=== PATIENT | male | born 1950 | race Caucasian/White ===

== ENCOUNTER 2018-10-15 00:50 | Emergency (ER) | payer MEDICARE ==
[~2018-10-15] VITALS: Ht 180.3 cm; Wt 84.8 kg
[~2018-10-15 00:50] MED LIST: ACID1TAB PO; ALPR1T PO; ALPR1TAB; ALPR2TAB6 PO; AMLO10TA7 PO; AMLO5TAB2 PO; AMLODIPINE; ASCO500T6 PO; ASPI-983 PO; BETA10003 PO; CARI250T; CARI350T27 PO; CEFD300C3 PO; CRS350T PO; DCS100C PO; ENAL20TA PO; ENALAPRIL; EZET10TA5 PO; FENO145T2 PO; FENO54TA PO; FERR-84 PO; FLUT16SP22 NS; HYDR-2890 PO; HYDR-3820 PO; HYDR1TAB PO; METR500T PO; MULT-351 PO; NYST1000 PO; PANT40TA3 PO; PERP1TAB PO; PERP1TAB5 PO; POLY17PO23 GT; POLY17PO6 PO; TAMS0.4C98 PO; TEST200V21 IM; THIO100T PO; THIO50TA PO; THR25T; TIZA4TAB3 PO; TRIAVIL; TRICOR; UBID1CAP53 PO; VITA400C60 PO; WHEA730P PO
--- OUTSIDE RECORDS SUMMARY | 2018-10-15 00:58 | XMS REPORT ---
Author Author Migration, Doctor Organization [facility] Address Unknown Phone Unavailable Care Team Providers Care Dross Puller Name Role Phone Migration, Doctor Unavailable Unavailable PROBLEMS Type Condition ICD9-CM Code XCV81-YD Code Onset Dates Condition Status SNOMED Code Problem HTN (hypertension) I10 Active 11357390 Problem Insomnia G47.00 Active 310103841 Problem Chronic pain G89.29 Active 78235561 Problem Hyperlipidemia E78.5 Active 43363310 Problem Thoracic back pain, unspecified back pain laterality, unspecified chronicity M54.6 Active 136322384 Problem Vision loss H54.7 Active 509428163 Problem Constipation K59.00 Active 26789482 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 18568655 Problem Anxiety F41.9 Active 47066965 Problem Vitamin D deficiency E55.9 Active 67901745 Problem Environmental allergies Z91.09 Active 898840666 Problem Primary insomnia F51.01 Active 0392859 Problem Chronic kidney disease, stage III (moderate) N18.3 Active 695627979 ALLERGIES No Information ENCOUNTERS Encounter Location Date Diagnosis [place] [id number] [place] [address] Sep, [facility] [address] [place] [address] August, 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 [facility] [address] [place] [address] August, 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 [facility] [address] [place] [address] August, [facility] [address] [place] [address] August, [facility] [address] [place] [address] August, Thoracic back pain, unspecified back pain laterality, unspecified chronicity M54.6 [facility] [address] [place] [address] August, [facility] [address] [place] [address] August, Anxiety F41.9 and Thoracic back pain, unspecified back pain laterality, unspecified chronicity M54.6 [facility] [address] [place] [address] Jul, [facility] [address] [place] [address] Jul, Thoracic back pain, unspecified back pain laterality, unspecified chronicity M54.6 [place] [address] [place] [address] Jun, Anxiety F41.9 and Thoracic back pain, unspecified back pain laterality, unspecified chronicity M54.6 [facility] [address] [place] [address] Jun, Anxiety F41.9 and Thoracic back pain, unspecified back pain laterality, unspecified chronicity M54.6 [facility] [address] [place] [address] Jun, Thoracic back pain, unspecified back pain laterality, unspecified chronicity M54.6 [facility] [address] [place] [address] Jun, Anxiety F41.9 and Thoracic back pain, unspecified back pain laterality, unspecified chronicity M54.6 [facility] [address] [place] [address] May, [facility] [address] [place] [address] May, [facility] [address] [place] [address] May, [place] [address] [place] [address] 06 May, 2018 Anxiety F41.9 and Encounter for medication monitoring Z51.81 [place] [address] [place] [address] 05 May, 2018 Anxiety F41.9 and Thoracic back pain, unspecified back pain laterality, unspecified chronicity M54.6 [place] [address] [address] Apr, Hyperlipidemia 272.4 [place] [address] [address] Apr, Chronic pain G89.29 ; Anxiety F41.9 ; Cervical radiculopathy M54.12 and Vision loss H54.7 [place] [address] [place] [address] Apr, [place] [address] [address] Apr, Anxiety F41.9 and Thoracic back pain, unspecified back pain laterality, unspecified chronicity M54.6 [place] [address] [place] [id number] 17 Mar, 2018 [place] [address] [place] [address] Mar, Anxiety F41.9 and Thoracic back pain, unspecified back pain laterality, unspecified chronicity M54.6 [place] [address] [place] [address] 14 Feb, 2018 Anxiety F41.9 and Thoracic back pain, unspecified back pain laterality, unspecified chronicity M54.6 [place] [address] [place] [address] 07 Feb, 2018 Thoracic back pain, unspecified back pain laterality, unspecified chronicity M54.6 [place] [address] [address] Jan, [place] [address] [place] [address] Jan, Anxiety F41.9 and Thoracic back pain, unspecified back pain laterality, unspecified chronicity M54.6 [place] [address] [place] [address] 19 Dec, 2017 Diarrhea of presumed infectious origin R19.7 [place] [address] [place] [phone] 19 Dec, 2017 Diarrhea of presumed infectious origin R19.7 [place] [address] [place] [address] 18 Dec, 2017 Thoracic back pain, unspecified back pain laterality, unspecified chronicity M54.6 [place] [address] [place] [address] 17 Dec, 2017 [place] [address] [place] [address] 17 Dec, 2017 Anxiety F41.9 and Thoracic back pain, unspecified back pain laterality, unspecified chronicity M54.6 [place] [address] [place] [phone] Dec, Diarrhea of presumed infectious origin R19.7 [place] [address] [place] [id number] Dec, [place] [address] [place] [address] Dec, Anxiety F41.9 and Thoracic back pain, unspecified back pain laterality, unspecified chronicity M54.6 [place] [address] [place] [address] Dec, Anxiety F41.9 and Thoracic back pain, unspecified back pain laterality, unspecified chronicity M54.6 [facility] [address] [place] [id number] Dec, Diarrhea of presumed infectious origin R19.7 ; Anxiety F41.9 ; Thoracic back pain, unspecified back pain laterality, unspecified chronicity M54.6 and HTN (hypertension) I10 [place] [address] [place] [address] Dec, Anxiety F41.9 [facility] [address] [place] [id number] Dec, Anxiety F41.9 ; Diarrhea of presumed infectious origin R19.7 ; Generalized abdominal pain R10.84 and Localized edema R60.0 [place] [address] [place] [address] Nov, [facility] [address] [place] [id number] Nov, Anxiety F41.9 ; Urinary retention R33.9 ; Diarrhea of presumed infectious origin R19.7 ; Weakness R53.1 ; Acute kidney failure, unspecified N17.9 ; Chronic kidney disease, stage III (moderate) N18.3 and Thoracic back pain, unspecified back pain laterality, unspecified chronicity M54.6 [place] [address] [place] [address] Oct, Thoracic back pain, unspecified back pain laterality, unspecified chronicity M54.6 and Anxiety F41.9 [place] [address] [place] [address] Sep, Thoracic back pain, unspecified back pain laterality, unspecified chronicity M54.6 and Anxiety F41.9 [place] [address] [place] [address] Sep, Thoracic back pain, unspecified back pain laterality, unspecified chronicity M54.6 ; Anxiety F41.9 and Encounter for medication monitoring Z51.81 [place] [address] [place] [address] August, [place] [address] [address] August, Thoracic back pain, unspecified back pain laterality, unspecified chronicity M54.6 and Anxiety F41.9 [place] [address] [place] [address] August, Hyperlipidemia E78.5 and HTN (hypertension) I10 [place] [address] [place] [address] August, [place] [address] [address] August, Medicare welcome exam Z00.00 ; Chronic kidney failure N18.9 ; Anxiety F41.9 ; Chronic pain G89.29 ; Insomnia G47.00 ; Hyperlipidemia E78.5 ; HTN (hypertension) I10 and Thoracic back pain, unspecified back pain laterality, unspecified chronicity M54.6 [place] [address] [place] [address] Jul, [place] [address] [address] Jul, [place] [address] [place] [address] Jul, [place] [address] [place] [address] Jul, Anxiety F41.9 [place] [address] [place] [address] Jul, Thoracic back pain, unspecified back pain laterality, unspecified chronicity M54.6 and Anxiety F41.9 [place] [address] [place] [address] Jun, Thoracic back pain, unspecified back pain laterality, unspecified chronicity M54.6 and Anxiety F41.9 [place] [address] [place] [address] May, Thoracic back pain, unspecified back pain laterality, unspecified chronicity M54.6 and Anxiety F41.9 [place] [address] [place] [address] Apr, Thoracic back pain, unspecified back pain laterality, unspecified chronicity M54.6 and Anxiety F41.9 [place] [address] [place] [address] Mar, [place] [address] [address] Mar, Thoracic back pain, unspecified back pain laterality, unspecified chronicity M54.6 and Anxiety F41.9 [place] [address] [place] [address] Mar, Thoracic back pain, unspecified back pain laterality, unspecified chronicity M54.6 ; HTN (hypertension) I10 ; Hyperlipidemia E78.5 and Anxiety F41.9 [place] [address] [place] [address] Feb, Thoracic back pain, unspecified back pain laterality, unspecified chronicity M54.6 and Anxiety F41.9 [place] [address] [place] [address] Nov, [place] [address] [place] [address] Oct, [place] [address] [place] [address] Oct, Thoracic back pain, unspecified back pain laterality, unspecified chronicity M54.6 [place] [address] [place] [address] Oct, HTN (hypertension) I10 ; Constipation K59.00 ; Hyperlipidemia E78.5 ; Thoracic back pain, unspecified back pain laterality, unspecified chronicity M54.6 ; Chronic pain G89.29 ; Anxiety F41.9 ; Chronic kidney failure N18.9 ; Environmental allergies Z91.09 ; Vitamin D deficiency E55.9 and Primary insomnia F51.01 [facility] [address] [facility] [id number] [place] [address] Sep, Anxiety F41.9 [facility] [address] [address] Sep, [facility] [address] [address] August, Anxiety F41.9 [facility] [place] [facility] [id number] [place] [address], [place] [address] August, [facility] [id number] [address] Jul, Anxiety F41.9 [facility] [address] [address] Jul, [facility] [id number] [place] [address], [place] [address] Jun, Anxiety F[address] [facility] [place] [facility] [id number] [address] Jun, [facility] [address] [address] May, [facility] [address] [address] May, [facility] [place] [facility] [address] [address] May, [facility] [place] [facility] [id number] [address] Apr, [facility] [place] [facility] [address] [address] Apr, [facility] [place] [facility] [address] [address] Apr, Anxiety F41.[address] [facility] [place] [facility] [address] [address] Apr, Anxiety F41.9 [facility] [address] [place] [address] Apr, [facility] [address] [place] [address] Mar, HTN (hypertension) I10 ; Tremor R25.1 ; Hypercholesterolemia E78.0 ; Constipation K59.00 ; Chronic pain G89.29 ; Hyperlipidemia E78.5 ; Insomnia G47.00 ; Anxiety F41.9 and Thoracic back pain, unspecified back pain laterality, unspecified chronicity M54.6 [facility] [address] [place] [address] Mar, Tremor R25.1 ; HTN (hypertension) I10 ; Hypercholesterolemia E78.0 ; Constipation K59.00 ; Chronic pain G89.29 ; Hyperlipidemia E78.5 ; Insomnia G47.00 ; Anxiety F41.9 and Thoracic back pain, unspecified back pain laterality, unspecified chronicity M54.6 [facility] [address] [place] [address] Mar, [facility] [address] [place] [address] Mar, [facility] [address] [place] [address] Feb, [facility] [address] [place] [address] Jan, [facility] [address] [place] [address] Jan, [facility] [address] [place] [address] Dec, [facility] [address] [place] [address] Nov, [facility] [address] [place] [address] Nov, [facility] [address] [address] Oct, Anxiety F41.9 [facility] [address] [place] [address] Oct, Chronic pain G89.29 [facility] [address] [place] [address] Sep, [facility] [address] [place] [address] Sep, [facility] [address] [place] [address] Sep, [facility] [address] [place] [address] Sep, [facility] [address] [place] [address] Sep, Chronic pain syndrome G89.4 [facility] [address] [place] [address] Sep, HTN (hypertension) I10 ; Chronic pain G89.29 ; Hypercholesterolemia E78.0 ; Chronic kidney failure N18.9 ; Constipation, unspecified constipation type K59.00 ; Anxiety F41.9 and Thoracic back pain, unspecified back pain laterality, unspecified chronicity M54.6 [place] [id number] [place] [address] August, Chronic pain syndrome G89.4 [facility] [address] [place] [address] August, Chronic pain syndrome G89.4 [facility] [address] [place] [address] Jul, Anxiety disorder, unspecified F41.9 and Chronic pain syndrome G89.4 [facility] [address] [place] [address] Jul, Insomnia, unspecified G47.00 and Chronic pain syndrome G89.4 [facility] [address] [address] Jul, Allergic rhinitis J30.9 [facility] [address] [address] Jul, Constipation, unspecified K59.00 [facility] [address] [place] [address] Jul, [facility] [address] [place] [address] Jun, [facility] [address] [place] [address] Jun, [facility] [address] [place] [address] Jun, [facility] [address] [place] [address] Jun, [facility] [address] [place] [address] Jun, [facility] [address] [place] [address] Jun, [facility] [address] [place] [address] May, [facility] [address] [place] [address] May, [facility] [address] [place] [address] May, Anxiety F41.9 ; Insomnia G47.00 ; Hyperlipidemia E78.5 ; Chronic pain G89.29 ; HTN (hypertension) I10 ; Environmental allergies V15.09 and Constipation 564.00 [facility] [address] [address] Apr, [facility] [address] [address] Apr, [facility] [address] [place] [address] Apr, [facility] [address] [place] [address] Mar, [facility] [address] [place] [address] Mar, [facility] [address] [place] [address] Mar, [facility] [address] [place] [address] Feb, [facility] [address] [place] [address] Feb, [facility] [address] [place] [address] Feb, [facility] [id number] [place] [address] Jan, HTN (hypertension) I10 ; Constipation K59.00 ; Chronic pain G89.29 ; Hyperlipidemia E78.5 ; Hypercholesterolemia E78.0 ; Insomnia G47.00 and Anxiety F41.9 [facility] [address] [place] [address] Jan, [facility] [address] [place] [address] Dec, [facility] [address] [place] [address] Nov, [facility] [address] [place] [address] Oct, Chronic kidney disease, unspecified 585.9 ; Chronic pain syndrome 338.4 ; Hyperlipidemia 272.4 and Essential hypertension 401.9 [facility] [address] [place] [address] Oct, Chronic kidney disease 585.9 [facility] [address] [address] Oct, [facility] [address] [place] [address] Oct, Chronic kidney disease, unspecified 585.9 ; Hypercalcemia 275.42 ; Hyperlipidemia 272.4 ; Essential hypertension 401.9 ; Chronic pain syndrome 338.4 ; Insomnia 780.52 ; Constipation 564.00 ; Environmental allergies V15.09 and Anxiety 300.00 [facility] [address] [address] Oct, Chronic kidney disease 585.9 [facility] [address] [place] [address] Oct, [facility] [address] [place] [address] Oct, Chronic kidney disease 585.9 and Hyperlipidemia 272.4 [facility] [address] [address] Oct, [facility] [id number] [place] [address] Oct, [facility] [address] [address] Sep, [facility] [id number] [address] Sep, [facility] [id number] [address] Sep, Chronic kidney disease 585.9 and Hyperlipidemia 272.4 [facility] [id number] [address] Sep, [facility] [id number] [address] August, [facility] [id number] [address] 14 Aug, 2014 [facility] [place] [facility] [address] [id number] [place] [address] 14 Jul, 2014 [facility] [place] [facility] [address] [id number] [place] [address] 13 Jul, 2014 [facility] [place] [facility] [address] [id number] [place] [address] Jun, [facility] [place] [facility] [address] [id number] [place] [address] Jun, [facility] [place] [facility] [address] [id number] [place] [address] Jun, [facility] [place] [facility] [address] [id number] [place] [address] Jun, [facility] [place] [facility] [address] [id number] [place] [address] Jun, [facility] [place] [facility] [address] [id number] [place] [address] Jun, [facility] [place] [facility] [address] [id number] [place] [address] Jun, [facility] [place] [facility] [address] [facility] [id number] [place] [address] Jun, [facility] [place] [facility] [address] [id number] [place] [address] 16 May, 2014 [facility] [place] [facility] [address] [id number] [place] [address] May, [facility] [place] [facility] [address] [id number] [place] [address] May, [facility] [place] [facility] [address] [id number] [place] [address] May, [facility] [place] [facility] [address] [id number] [place] [address] Apr, [facility] [place] [facility] [address] [id number] [place] [address] Apr, [facility] [place] [facility] [address] [id number] [place] [address] Apr, [facility] [place] [facility] [address] [id number] [place] [address] Apr, [facility] [place] [facility] [address] [id number] [place] [address] Apr, [facility] [place] [facility] [address] [id number] [place] [address] Apr, [facility] [place] [facility] [address] [id number] [place] [address] Apr, [facility] [place] [facility] [address] [address] [id number] [place] [address] Apr, [facility] [place] [facility] [address] [id number] [place] [address] Apr, [facility] [place] [facility] [address] [id number] [place] [address] Apr, [facility] [place] [facility] [address] [id number] [place] [address] Apr, [facility] [place] [facility] [address] [id number] [place] [address] Mar, [facility] [place] [facility] [address] [id number], [place] [address] Mar, [facility] [place] [facility] [address] [id number] [place] [address] Feb, [facility] [place] [facility] [address] [id number] [place] [address] Feb, [facility] [place] [facility] [address] [id number] [place] [address] Feb, [facility] [place] [facility] [address] [id number], [place] [address] Feb, [facility] [place] [facility] [address] [id number] [place] [address] Feb, [facility] [place] [facility] [address] [id number] [place] [address] Feb, [facility] [place] [facility] [address] [id number] [place] [address] Feb, [facility] [place] [facility] [address] [id number] [place] [address] Feb, [facility] [place] [facility] [address] [id number] [place] [address] Feb, [facility] [place] [facility] [address] [id number] [place] [address] Feb, [facility] [place] [facility] [address] [facility] [id number] [place] [address] Jan, [facility] [place] [facility] [address] [id number] [place] [address] Jan, [facility] [place] [facility] [address] [id number] [place] [address] Jan, [facility] [place] [facility] [address] [facility] [id number] [place] [address] Jan, [facility] [place] [facility] [address] [id number], [place] [address] Jan, [facility] [place] [facility] [address] [id number][place] [address] 24 Jan, 2014 [facility] [place] [facility] [address] [id number] [place] [address] Jan, [facility] [place] [facility] [address] [id number] [place] [address] Jan, [facility] [place] [facility] [address] [facility] [id number][place] [address] 16 Jan, 2014 [facility] [place] [facility] [address] [id number] [place] [address] 06 Jan, 2014 [facility] [place] [facility] [address] [id number] [place] [address] Jan, [facility] [place] [facility] [address] [id number] [place] [address] Dec, 2013 [facility] [place] [facility] [address] [id number] [place] [address] Dec, 2013 [facility] [place] [facility] [address] [id number] [place] [address] Dec, 2013 [facility] [place] [facility] [address] [id number] [place] [address] Dec, 2013 [facility] [place] [facility] [address] [id number] [place] [address] 18 Dec, 2013 [facility] [place] [facility] [address] [id number] [place] [address] Dec, [facility] [place] [facility] [address] [id number] [place] [address] Dec, [facility] [place] [facility] [address] [id number] [place] [address] Dec, [facility] [place] [facility] [address] [id number] [place] [address] Nov, [facility] [place] [facility] [address] [id number] [place] [address] Nov, [facility] [place] [facility] [address] [id number] [place] [address] Nov, [facility] [place] [facility] [address] [id number] [place] [address] Nov, [facility] [place] [facility] [address] [id number] [place] [address] Nov, [facility] [place] [facility] [address] [id number] [place] [address] Nov, [facility] [place] [facility] [address] [id number] [place] [address] Nov, [facility] [place] [facility] [address] [id number] [place] [address] Nov, [facility] [place] [facility] [address] [id number] [place] [address] Oct, [facility] [place] [facility] [address] [id number] [place] [address] Oct, [facility] [place] [facility] [address] [id number] [place] [address] Oct, [facility] [place] [facility] [address] [id number] [place] [address] Oct, [facility] [place] [facility] [address] [id number] [place] [address] Sep, [facility] [place] [facility] [address] [id number] [place] [address] Sep, [facility] [place] [facility] [address] [id number] [place] [address] Sep, [facility] [place] [facility] [address] [id number] [place] [address] Sep, [facility] [place] [facility] [address] [id number] [place] [address] Sep, [facility] [place] [facility] [address] [id number], [place] [address] Sep, [facility] [place] [facility] [address] [id number] [place] [address] Sep, [facility] [place] [facility] [address] [id number] [place] [address] Sep, [facility] [place] [facility] [address] [id number] [place] [address] August, [facility] [place] [facility] [address] [id number] [place] [address] August, [facility] [address] [id number] [place] [address] August, [facility] [place] [facility] [address] [id number] [place] [address] August, [facility] [place] [facility] [address] [id number] [place] [address] August, [facility] [place] [facility] [address] [id number] [place] [address] August, [facility] [place] [facility] [address] [id number] [place] [address] August, [facility] [place] [facility] [address] [id number] [place] [address] August, [facility] [address] [id number] [place] [address] August, [facility] [place] [facility] [address] [id number] [place] [address] August, [facility] [place] [facility] [address] [id number] [place] [address] Jul, [facility] [place] [facility] [address] [id number] [place] [address] Jul, [facility] [place] [facility] [address] [id number] [place] [address] Jul, [facility] [place] [facility] [address] [id number] [place] [address] Jul, [facility] [place] [facility] [address] [id number] [place] [address] Jul, [facility] [place] [facility] [address] [id number] [place] [address] Jul, [facility] [place] [facility] [address] [id number] [place] [address] Jul, [facility] [place] [facility] [address] [id number] [place] [address] Jul, [facility] [place] [facility] [address] [id number] [place] [address] Jun, [facility] [place] [facility] [address] [id number] [place] [address] Jun, [facility] [place] [facility] [address] [id number] [place] [address] Jun, [facility] [place] [facility] [address] [id number] [place] [address] Jun, [facility] [place] [facility] [address] [id number] [place] [address] Jun, [facility] [place] [facility] [address] [id number] [place] [address] Jun, [facility] [place] [facility] [address] [id number] [place] [address] May, [facility] [place] [facility] [address] [id number] [place] [address] May, [facility] [place] [facility] [address] [id number] [place] [address] May, [facility] [place] [facility] [address] [id number] [place] [address] May, [facility] [place] [facility] [address] [id number] [place] [address] May, [facility] [place] [facility] [address] [id number] [place] [address] May, [facility] [place] [facility] [address] [id number] [place] [address] May, [facility] [place] [facility] [address] [id number] [place] [address] Apr, [facility] [place] [facility] [address] [id number] [place] [address] Apr, [facility] [address] [id number] [place] [address] Apr, [facility] [place] [facility] [address] [id number] [place] [address] 14 Apr, 2013 [facility] [address] [id number] [place] [address] Apr, [facility] [place] [facility] [address] [id number] [place] [address] Apr, [facility] [address] [id number] [place] [address] Mar, [facility] [place] [facility] [address] [id number] [place] [address] 31 Mar, 2013 [facility] [address] [id number] [place] [address] Mar, [facility] [place] [facility] [address] [id number] [place] [address] 23 Mar, 2013 [facility] [place] [facility] [address] [id number] [place] [address] Mar, [facility] [place] [facility] [address] [facility] [id number] [place] [address] Mar, [facility] [place] [facility] [address] [id number] [place] [address] 16 Mar, 2013 [facility] [place] [facility] [address] [id number] [place] [address] 16 Mar, 2013 [facility] [place] [facility] [address] [id number] [place] [address] 12 Mar, 2013 [facility] [place] [facility] [address] [id number] [place] [address] Mar, [facility] [place] [facility] [address] [id number] [place] [address] Feb, [facility] [place] [facility] [address] [id number] [place] [address] Feb, [facility] [place] [facility] [address] [id number] [place] [address] Feb, [facility] [place] [facility] [address] [id number] [place] [address] Feb, [facility] [place] [facility] [address] [id number] [place] [address] Feb, [facility] [place] [facility] [address] [id number] [place] [address] Feb, [facility] [place] [facility] [address] [id number] [place] [address] Feb, [facility] [place] [facility] [address] [id number] [place] [address] Feb, [facility] [place] [facility] [address] [id number] [place] [address] Feb, [facility] [place] [facility] [address] [id number] [place] [address] Feb, [facility] [place] [facility] [address] [id number] [place] [address] Jan, [facility] [place] [facility] [address] [id number] [place] [address] Jan, [facility] [place] [facility] [address] [id number] [place] [address] Jan, [facility] [place] [facility] [address] [id number] [place] [address] Jan, [facility] [place] [facility] [address] [id number] [place] [address] Jan, [facility] [place] [facility] [address] [id number] [place] [address] Jan, [facility] [place] [facility] [address] [id number] [place] [address] Jan, [facility] [place] [facility] [address] [id number] [place] [address] Jan, [facility] [place] [facility] [address] [id number] [place] [address] Jan, [facility] [place] [facility] [address] [id number] [place] [address] Dec, [facility] [place] [facility] [address] [id number] [place] [address] Dec, [facility] [place] [facility] [address] [id number] [place] [address] Dec, [facility] [place] [facility] [address] [id number] [place] [address] Dec, [facility] [place] [facility] [address] [id number] [place] [address] Nov, [facility] [place] [facility] [address] [id number] [place] [address] Nov, [facility] [place] [facility] [address] [id number] [place] [address] Nov, [facility] [place] [facility] [address] [id number] [place] [address] Nov, [facility] [place] [facility] [address] [id number] [place] [address] Nov, [facility] [place] [facility] [address] [id number], [place] [address] Nov, [facility] [place] [facility] [address] [id number] [place] [address] Oct, [facility] [place] [facility] [address] [id number] [place] [address] Oct, [facility] [place] [facility] [address] [id number] [place] [address] Oct, [facility] [place] [facility] [address] [id number] [place] [address] 08 Oct, 2012 [facility] [place] [address] [id number] [place] [address] 27 Sep, 2012 [facility] [address] [id number] [place] [address] 19 Sep, 2012 [facility] [address] [id number] [place] [address] 17 Sep, 2012 [facility] [address] [id number] [place] [address] 14 Sep, 2012 [facility] [address] [id number] [place] [address] 10 Sep, 2012 [facility] [address] [id number] [place] [address] August, [facility] [address] [id number] [place] [address] August, [facility] [address] [id number] [place] [address] 19 Jul, 2012 [facility] [address] [id number] [place] [address] Jul, [facility] [address] [id number] [place] [address] 15 Jul, 2012 [facility] [address] [id number] [place] [address] 09 Jul, 2012 [facility] [address] [id number] [place] [address] 08 Jul, 2012 [facility] [address] [id number] [place] [address] 26 Jun, 2012 [facility] [address] [id number] [place] [address] 20 Jun, 2012 [facility] [address] [id number] [place] [address] 15 Jun, 2012 [facility] [address] [id number] [place] [address] Jun, [facility] [place] [facility] [address] [id number] [place] [address] Jun, [facility] [place] [facility] [address] [id number] [place] [address] 28 May, 2012 [facility] [place] [facility] [address] [id number] [place] [address] May, [facility] [address] [id number] [place] [address] May, [facility] [place] [facility] [address] [id number] [place] [address] May, [facility] [place] [facility] [address] [id number] [place] [address] May, [facility] [place] [facility] [address] [id number] [place] [address] 14 May, 2012 [facility] [place] [facility] [address] [id number] [place] [address] May, [facility] [place] [facility] [address] [id number] [place] [address] May, [facility] [place] [facility] [address] [id number] [place] [address] May, [facility] [place] [facility] [address] [id number] [place] [address] Apr, [facility] [place] [facility] [address] [id number] [place] [address] Apr, [facility] [place] [facility] [address] [id number] [place] [address] Apr, [facility] [place] [facility] [address] [id number] [place] [address] Apr, [facility] [place] [facility] [address] [id number] [place] [address] Apr, [facility] [address] [id number] [place] [address] Mar, [facility] [address] [id number] [place] [address] Mar, [facility] [address] [id number] [place] [address] Mar, [facility] [address] [id number] [place] [address] Mar, [facility] [address] [id number] [place] [address] Mar, [facility] [address] [id number] [place] [address] Mar, [facility] [address] [id number] [place] [address] Mar, [facility] [address] [id number] [place] [address] Mar, [facility] [address] [id number] [place] [address] Mar, [facility] [address] [facility] [id number] [place] [address] Mar, [facility] [address] [id number] [place] [address] 30 Feb, 2012 [facility] [address] [id number] [place] [address] 30 Feb, 2012 [facility] [place] [facility] [address] [id number] [place] [address] Feb, [facility] [place] [facility] [address] [id number] [place] [address] 29 Feb, 2012 [facility] [address] [id number] [place] [address] Feb, [facility] [place] [facility] [address] [id number] [place] [address] Feb, [facility] [place] [facility] [address] [id number] [place] [address] Feb, [facility] [place] [facility] [address] [id number] [place] [address] Feb, [facility] [place] [facility] [address] [id number] [place] [address] Feb, [facility] [place] [facility] [address] [id number] [place] [address] Feb, [facility] [place] [facility] [address] [id number] [place] [address] Feb, [facility] [place] [facility] [address] [facility] [id number] [place] [address] Feb, [facility] [place] [facility] [address] [id number], [place] [address] Feb, [facility] [place] [facility] [address] [id number][place] [address] Feb, [facility] [place] [facility] [address] [facility] [id number], [place] [address] Feb, [facility] [place] [facility] [address] [facility] [id number][place] [address] Feb, [facility] [place] [facility] [address] [id number], [place] [address] Feb, [facility] [place] [facility] [address] [id number], [place] [address] Feb, [facility] [place] [facility] [address] [id number], [place] [address] Jan, [facility] [place] [facility] [address] [id number], [place] [address] Jan, [facility] [place] [facility] [address] [id number], [place] [address] Jan, [facility] [place] [facility] [address] [id number] [place] [address] Jan, [facility] [place] [facility] [address] [id number] [place] [address] Jan, [facility] [place] [facility] [address] [id number] [place] [address] Jan, [facility] [place] [facility] [address] [id number] [place] [address] Jan, [facility] [place] [facility] [address] [id number] [place] [address] Jan, [facility] [place] [facility] [address] [id number] [place] [address] Jan, [facility] [place] [facility] [address] [facility] [id number] [place] [address] Jan, [facility] [place] [facility] [address] [id number] [place] [address] 24 Dec, 2011 [facility] [place] [facility] [address] [facility] [id number] [place] [address] 18 Dec, 2011 [facility] [place] [facility] [address] [facility] [id number] [place] [address] Dec, [facility] [place] [facility] [address] [id number] [place] [address] Dec, [facility] [place] [facility] [address] [id number], [place] [address] Nov, [facility] [place] [facility] [address] [id number] [place] [address] Nov, [facility] [place] [facility] [address] [facility] [id number] [place] [address] Nov, [facility] [place] [facility] [address] [facility] [id number] [place] [address] Nov, [facility] [place] [facility] [address] [id number] [place] [address] Nov, [facility] [place] [facility] [address] [id number] [place] [address] Nov, [facility] [place] [facility] [address] [id number] [place] [address] Oct, [facility] [place] [facility] [address] [id number] [place] [address] Oct, [facility] [place] [facility] [address] [id number] [place] [address] Oct, [facility] [place] [facility] [address] [id number] [place] [address] Oct, [facility] [place] [facility] [address] [id number] [place] [address] Oct, [facility] [place] [facility] [address] [id number] [place] [address] Sep, [facility] [place] [facility] [address] [id number] [place] [address] Sep, [facility] [place] [facility] [address] [id number] [place] [address] Sep, [facility] [place] [facility] [address] [id number] [place] [address] Sep, [facility] [place] [facility] [address] [id number] [place] [address] Sep, [facility] [place] [facility] [address] [id number] [place] [address] August, [facility] [place] [facility] [address] [id number] [place] [address] August, [facility] [place] [facility] [address] [id number] [place] [address] August, [facility] [place] [facility] [address] [id number] [place] [address] August, [facility] [place] [facility] [address] [id number] [place] [address] Jul, [facility] [place] [facility] [address] [id number] [place] [address] 24 Jul, 2011 [facility] [place] [facility] [address] [id number] [place] [address] Jul, [facility] [place] [facility] [address] [id number] [place] [address] Jul, [facility] [place] [facility] [address] [id number] [place] [address] Jul, [facility] [place] [facility] [address] [id number] [place] [address] Jul, [facility] [place] [facility] [address] [id number] [place] [address] Jul, [facility] [place] [facility] [address] [id number] [place] [address] Jul, [facility] [place] [facility] [address] [id number] [place] [address] Jul, [facility] [place] [facility] [address] [id number] [place] [address] Jul, [facility] [place] [facility] [address] [id number] [place] [address] Jul, [facility] [place] [facility] [address] [id number], [place] [address] Jul, [facility] [place] [facility] [address] [id number] [place] [address] Jul, [facility] [place] [facility] [address] [id number] [place] [address] Jul, [facility] [place] [facility] [address] [id number] [place] [address] Jun, [facility] [place] [facility] [address] [id number] [place] [address] 27 Jun, 2011 [facility] [address] [id number] [place] [address] 20 Jun, 2011 [facility] [address] [id number] [place] [address] 16 Jun, 2011 [facility] [address] [id number] [place] [address] 27 May, 2011 [facility] [address] [id number] [place] [address] 16 May, 2011 [facility] [address] [id number] [place] [address] 09 May, 2011 [facility] [address] [id number] [place] [address] 26 Apr, 2011 [facility] [address] [id number] [place] [address] 18 Apr, 2011 [facility] [address] [id number] [place] [address] 13 Apr, 2011 [facility] [address] [id number] [place] [address] Apr, [facility] [address] [id number] [place] [address] 09 Apr, 2011 [facility] [address] [id number] [place] [address] Mar, [facility] [address] [id number] [place] [address] Mar, [facility] [place] [facility] [address] [id number] [place] [address] Mar, [facility] [place] [facility] [address] [id number] [place] [address] Mar, [facility] [address] [id number] [place] [address] 16 Mar, 2011 [facility] [place] [facility] [address] [id number] [place] [address] Mar, [facility] [place] [facility] [address] [id number] [place] [address] 05 Mar, 2011 [facility] [place] [facility] [address] [id number] [place] [address] 29 Feb, 2011 [facility] [place] [facility] [address] [id number] [place] [address] Feb, [facility] [place] [facility] [address] [id number] [place] [address] Feb, [facility] [place] [facility] [address] [id number] [place] [address] Feb, [facility] [place] [facility] [address] [id number] [place] [address] 16 Feb, 2011 [facility] [place] [facility] [address] [id number] [place] [address] 14 Feb, 2011 [facility] [place] [facility] [address] [id number] [place] [address] Feb, [facility] [place] [facility] [address] [id number] [place] [address] Jan, [facility] [place] [facility] [address] [id number] [place] [address] 31 Jan, 2011 [facility] [place] [facility] [address] [id number], [place] [address] 31 Jan, 2011 [facility] [place] [facility] [address] [id number] [place] [address] 18 Jan, 2011 [facility] [place] [facility] [address] [id number], [place] [address] 17 Jan, 2011 [facility] [place] [facility] [address] [id number] [address] 17 Jan, 2011 [facility] [place] [facility] [address] [id number][place] [address] 17 Jun, 2010 [facility] [address] [id number] [place] [address] 30 Mar, 2010 [facility] [place] [facility] [address] [id number] [place] [address] 20 Mar, 2010 [facility] [place] [facility] [address] [id number] [place] [address] 14 Mar, 2010 [facility] [place] [facility] [address] [id number] [place] [address] 14 Mar, 2010 [facility] [address] [id number] [place] [address] 13 Mar, 2010 [facility] [place] [facility] [address] [id number] [place] [address] 07 Mar, 2010 [facility] [address] [facility] [id number] [place] [address] 02 Mar, 2010 [facility] [place] [facility] [address] [id number] [place] [address] Mar, [facility] [address] [id number] [place] [address] 30 Feb, 2010 [facility] [place] [facility] [address] [id number] [place] [address] 29 Feb, 2010 [facility] [place] [facility] [address] [id number][place] [address] 17 Feb, 2010 [facility] [place] [facility] [address] [id number] [place] [address] 17 Feb, 2010 [facility] [place] [facility] [address] [id number] [place] [address] 16 Feb, 2010 [facility] [place] [facility] [address] [id number] [place] [address] 08 Feb, 2010 [facility] [place] [facility] [address] [id number] [place] [address] 04 Feb, 2010 [facility] [place] [facility] [address] [id number] [place] [address] Feb, [facility] [address] [id number] [place] [address] Jan, [facility] [place] [facility] [address] [id number] [place] [address] Jan, [facility] [address] [id number] [place] [address] Jan, [facility] [place] [facility] [address] [id number] [place] [address] Jan, [facility] [address] [id number] [place] [address] 29 Mar, 2009 [facility] [place] [facility] [address] [facility] [id number] [place] [address] 22 Mar, 2009 [facility] [place] [facility] [address] [id number] [place] [address] Mar, [facility] [address] [id number] [place] [address] 19 Mar, 2009 [facility] [place] [facility] [address] [facility] [id number] [place] [address] 14 Mar, 2009 [facility] [address] [facility] [id number] [place] [address] 10 Mar, 2009 [facility] [place] [facility] [address] [id number] [place] [address] Feb, [facility] [place] [facility] [address] [id number] [place] [address] Feb, [facility] [place] [facility] [address] [id number] [place] [address] 13 Jan, 2009 [facility] [place] [facility] [address] [facility] [id number] [place] [address] Sep, [facility] [place] [facility] [address] [facility] [id number] [place] [address] May, IMMUNIZATIONS No Known Immunizations SOCIAL HISTORY Never Assessed REASON FOR VISIT EMR-[facility] [place] PLAN OF CARE VITAL SIGNS MEDICATIONS Unknown Medications RESULTS No Results PROCEDURES No Known procedures INSTRUCTIONS MEDICATIONS ADMINISTERED No Known Medications MEDICAL (GENERAL) HISTORY Type Description Date Medical History Hypertension Medical History Hyperlipidemia Medical History chronic back pain since age 26 Medical History Anxiety Medical History Hx of Spontaneous Pneumothorax Surgical History right knee arthroscopy Surgical History colon resection Surgical History tonsillectomy Surgical History Left ear surgery Hospitalization History [facility]- Spontaneous Pneumothorax Hospitalization History Via [facility]- Colon resection Hospitalization History via [facility] - diarrhea/ couldnt urinate nov 2017
--- OUTSIDE RECORDS SUMMARY | 2018-10-15 00:58 | XMS REPORT ---
Author Author AGUSTÍN PRATER [facility] Address [address] [place] [address] Care Team Providers Care Quality Analyst/Technical Writer Name Role Phone AGUSTÍN PRATER Unavailable PROBLEMS Type Condition ICD9-CM Code DFP40-LT Code Onset Dates Condition Status SNOMED Code Problem HTN (hypertension) I10 Active 81608076 Problem Insomnia G47.00 Active 973852722 Problem Chronic pain G89.29 Active 91345646 Problem Hyperlipidemia E78.5 Active 17259246 Problem Thoracic back pain, unspecified back pain laterality, unspecified chronicity M54.6 Active 439180032 Problem Vision loss H54.7 Active 658280799 Problem Constipation K59.00 Active 05242432 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 81054062 Problem Anxiety F41.9 Active 00329929 Problem Vitamin D deficiency E55.9 Active 11385609 Problem Environmental allergies Z91.09 Active 930972791 Problem Primary insomnia F51.01 Active 6194272 Problem Chronic kidney disease, stage III (moderate) N18.3 Active [id number] ALLERGIES No Information ENCOUNTERS Encounter Location Date Diagnosis [facility] [address] [address] Sep, [facility] [id number] [place] [address] August, 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 [facility] [address] [address] August, [facility] [id number] [place] [address] August, [facility] [id number] [address] August, Thoracic back pain, unspecified back pain laterality, unspecified chronicity M54.6 [facility] [id number] [place] [address] August, [facility] [id number] [place] [address] August, Anxiety F41.9 and Thoracic back pain, unspecified back pain laterality, unspecified chronicity M54.6 [facility] [id number] [place] [address] Jul, [facility] [id number] [place] [address] Jul, Thoracic back pain, unspecified back pain laterality, unspecified chronicity M54.6 [facility] [id number] [place] [address] Jun, Anxiety F41.9 and Thoracic back pain, unspecified back pain laterality, unspecified chronicity M54.6 [facility] [id number] [place] [address] Jun, Anxiety F41.9 and Thoracic back pain, unspecified back pain laterality, unspecified chronicity M54.6 [facility] [id number] [place] [address] Jun, Thoracic back pain, unspecified back pain laterality, unspecified chronicity M54.6 [facility] [id number] [place] [address] Jun, Anxiety F41.9 and Thoracic back pain, unspecified back pain laterality, unspecified chronicity M54.6 [facility] [id number] [place] [address] May, [facility] [id number] [place] [address] May, [facility] [id number] [place] [address] May, [facility] [address] [address] 06 May, 2018 Anxiety F41.9 and Encounter for medication monitoring Z51.81 [place] [address] [address] 05 May, 2018 Anxiety F41.9 and Thoracic back pain, unspecified back pain laterality, unspecified chronicity M54.6 [place] [address] [address] Apr, Hyperlipidemia 272.4 [place] [address] [address] Apr, Chronic pain G89.29 ; Anxiety F41.9 ; Cervical radiculopathy M54.12 and Vision loss H54.7 [place] [address] [address] Apr, [place] [address] [address] Apr, Anxiety F41.9 and Thoracic back pain, unspecified back pain laterality, unspecified chronicity M54.6 [place] [address] [address] Mar, [place] [address] [address] Mar, Anxiety F41.9 and Thoracic back pain, unspecified back pain laterality, unspecified chronicity M54.6 [place] [address] [address] 14 Feb, 2018 Anxiety F41.9 and Thoracic back pain, unspecified back pain laterality, unspecified chronicity M54.6 [place] [address] [address] Feb, Thoracic back pain, unspecified back pain laterality, unspecified chronicity M54.6 [place] [address] [address] Jan, [facility] [id number] [place] [address] Jan, Anxiety F41.9 and Thoracic back pain, unspecified back pain laterality, unspecified chronicity M54.6 [facility] [id number] [place] [address] Dec, Diarrhea of presumed infectious origin R19.7 [facility] [id number] [place] [address] Dec, Diarrhea of presumed infectious origin R19.7 [facility] [id number] [place] [address] 18 Dec, 2017 Thoracic back pain, unspecified back pain laterality, unspecified chronicity M54.6 [facility] [id number] [place] [address] Dec, [facility] [id number] [place] [address] Dec, Anxiety F41.9 and Thoracic back pain, unspecified back pain laterality, unspecified chronicity M54.6 [facility] [id number] [place] [address] Dec, Diarrhea of presumed infectious origin R19.7 [facility] [id number] [place] [address] Dec, [facility] [id number] [place] [address] Dec, Anxiety F41.9 and Thoracic back pain, unspecified back pain laterality, unspecified chronicity M54.6 [facility] [id number] [place] [address] Dec, Anxiety F41.9 and Thoracic back pain, unspecified back pain laterality, unspecified chronicity M54.6 [facility] [address] [place], [place] [id number] Dec, Diarrhea of presumed infectious origin R19.7 ; Anxiety F41.9 ; Thoracic back pain, unspecified back pain laterality, unspecified chronicity M54.6 and HTN (hypertension) I10 [place] [id number] [place] [address] Dec, Anxiety F41.9 [facility] [address] [place] [id number] Dec, Anxiety F41.9 ; Diarrhea of presumed infectious origin R19.7 ; Generalized abdominal pain R10.84 and Localized edema R60.0 [place] [id number] [place] [address] Nov, [facility] [address] [place] [id number] Nov, Anxiety F41.9 ; Urinary retention R33.9 ; Diarrhea of presumed infectious origin R19.7 ; Weakness R53.1 ; Acute kidney failure, unspecified N17.9 ; Chronic kidney disease, stage III (moderate) N18.3 and Thoracic back pain, unspecified back pain laterality, unspecified chronicity M54.6 [facility] [id number] [place] [address] Oct, Thoracic back pain, unspecified back pain laterality, unspecified chronicity M54.6 and Anxiety F41.9 [place] [id number] [place] [address] Sep, Thoracic back pain, unspecified back pain laterality, unspecified chronicity M54.6 and Anxiety F41.9 [facility] [id number] [place] [address] Sep, Thoracic back pain, unspecified back pain laterality, unspecified chronicity M54.6 ; Anxiety F41.9 and Encounter for medication monitoring Z51.81 [place] [id number] [place] [address] August, [place] [facility] [id number] [place] [address] August, Thoracic back pain, unspecified back pain laterality, unspecified chronicity M54.6 and Anxiety F41.9 [facility] [id number] [place] [address] August, Hyperlipidemia E78.5 and HTN (hypertension) I10 [facility] [id number] [place] [address] August, [facility] [address] [address] August, Medicare welcome exam Z00.00 ; Chronic kidney failure N18.9 ; Anxiety F41.9 ; Chronic pain G89.29 ; Insomnia G47.00 ; Hyperlipidemia E78.5 ; HTN (hypertension) I10 and Thoracic back pain, unspecified back pain laterality, unspecified chronicity M54.6 [place] [id number] [place] [address] Jul, [place] [address] [address] Jul, [place] [id number] [place] [address] Jul, [facility] [id number] [place] [address] Jul, Anxiety F41.9 [place] [id number] [place] [address] Jul, Thoracic back pain, unspecified back pain laterality, unspecified chronicity M54.6 and Anxiety F41.9 [facility] [id number] [place] [address] Jun, Thoracic back pain, unspecified back pain laterality, unspecified chronicity M54.6 and Anxiety F41.9 [place] [id number] [place] [address] May, Thoracic back pain, unspecified back pain laterality, unspecified chronicity M54.6 and Anxiety F41.9 [place] [id number] [place] [address] Apr, Thoracic back pain, unspecified back pain laterality, unspecified chronicity M54.6 and Anxiety F41.9 [place] [id number] [place] [address] Mar, [place] [address] [address] Mar, Thoracic back pain, unspecified back pain laterality, unspecified chronicity M54.6 and Anxiety F41.9 [place] [address] [address] Mar, Thoracic back pain, unspecified back pain laterality, unspecified chronicity M54.6 ; HTN (hypertension) I10 ; Hyperlipidemia E78.5 and Anxiety F41.9 [place] [id number] [place] [address] Feb, Thoracic back pain, unspecified back pain laterality, unspecified chronicity M54.6 and Anxiety F41.9 [place] [id number] [place] [address] Nov, [place] [id number] [place] [address] Oct, [place] [id number] [place] [address] Oct, Thoracic back pain, unspecified back pain laterality, unspecified chronicity M54.6 [place] [place] [id number] [place] [address] Oct, HTN (hypertension) I10 ; Constipation K59.00 ; Hyperlipidemia E78.5 ; Thoracic back pain, unspecified back pain laterality, unspecified chronicity M54.6 ; Chronic pain G89.29 ; Anxiety F41.9 ; Chronic kidney failure N18.9 ; Environmental allergies Z91.09 ; Vitamin D deficiency E55.9 and Primary insomnia F51.01 [place] [address] [place] [address] Sep, Anxiety F41.9 [facility] [place] [facility] [id number] [place] [address], [place] [address] Sep, [facility] [place] [facility] [id number] [place] [address] August, Anxiety F41.9 [facility] [place] [facility] [id number] [place] [address], [place] [address] August, [facility] [place] [facility] [id number] [place] [address], [place] [address] Jul, Anxiety F41.9 [facility] [place] [facility] [id number] [place] [address], [place] [address] Jul, [facility] [place] [facility] [id number] [place] [address], [place] [address] Jun, Anxiety F41.9 [facility] [place] [facility] [id number] [place] [address] Jun, [facility] [place] [facility] [id number] [place] [address] May, [facility] [place] [facility] [id number] [place] [address] May, [facility] [place] [facility] [address] [address] May, [facility] [place] [facility] [address] [address] Apr, [facility] [place] [facility] [address] [place] [address] Apr, [facility] [place] [facility] [address] [address] Apr, Anxiety F41.9 [facility] [place] [facility] [address] [place] [address] Apr, Anxiety F41.9 [facility] [place] [facility] [id number] [place] [address] Apr, [facility] [id number] [place] [address] Mar, HTN (hypertension) I10 ; Tremor R25.1 ; Hypercholesterolemia E78.0 ; Constipation K59.00 ; Chronic pain G89.29 ; Hyperlipidemia E78.5 ; Insomnia G47.00 ; Anxiety F41.9 and Thoracic back pain, unspecified back pain laterality, unspecified chronicity M54.6 [facility] [id number] [place] [address] Mar, Tremor R25.1 ; HTN (hypertension) I10 ; Hypercholesterolemia E78.0 ; Constipation K59.00 ; Chronic pain G89.29 ; Hyperlipidemia E78.5 ; Insomnia G47.00 ; Anxiety F41.9 and Thoracic back pain, unspecified back pain laterality, unspecified chronicity M54.6 [facility] [id number] [place] [address] Mar, [facility] [id number] [place] [address] Mar, [facility] [id number] [place] [address] Feb, [facility] [id number] [place] [address] Jan, [facility] [id number] [place] [address] Jan, [facility] [id number] [place] [address] Dec, [facility] [id number] [place] [address] Nov, [facility] [id number] [address] Nov, [facility] [address] [place] [address] Oct, Anxiety F41.9 [facility] [id number] [place] [address] Oct, Chronic pain G89.29 [facility] [id number] [place] [address] Sep, [facility] [address] [address] Sep, [facility] [id number] [place] [address] Sep, [facility] [id number] [place] [address] Sep, [facility] [id number] [place] [address] Sep, Chronic pain syndrome G89.4 [facility] [id number] [place] [address] Sep, HTN (hypertension) I10 ; Chronic pain G89.29 ; Hypercholesterolemia E78.0 ; Chronic kidney failure N18.9 ; Constipation, unspecified constipation type K59.00 ; Anxiety F41.9 and Thoracic back pain, unspecified back pain laterality, unspecified chronicity M54.6 [facility] [id number] [place] [address] August, Chronic pain syndrome G89.4 [facility] [id number] [place] [address] August, Chronic pain syndrome G89.4 [facility] [id number] [place] [address] Jul, Anxiety disorder, unspecified F41.9 and Chronic pain syndrome G89.4 [facility] [id number] [place] [address] Jul, Insomnia, unspecified G47.00 and Chronic pain syndrome G89.4 [facility] [address] [place] [address] Jul, Allergic rhinitis J30.9 [facility] [id number] [place] [address] Jul, Constipation, unspecified K59.00 [facility] [id number] [place] [address] Jul, [facility] [id number] [place] [address] Jun, [facility] [id number] [place] [address] Jun, [facility] [id number] [place] [address] Jun, [facility] [id number] [place] [address] Jun, [facility] [id number] [place] [address] Jun, [facility] [id number] [place] [address] Jun, [facility] [id number] [place] [address] May, [facility] [id number] [place] [address] May, [facility] [id number] [place] [address] May, Anxiety F41.9 ; Insomnia G47.00 ; Hyperlipidemia E78.5 ; Chronic pain G89.29 ; HTN (hypertension) I10 ; Environmental allergies V15.09 and Constipation 564.00 [facility] [address] [place] [address] Apr, [facility] [id number] [place] [address] Apr, [facility] [address] [address] Apr, [facility] [id number] [place] [address] Mar, [facility] [id number] [place] [address] Mar, [facility] [id number] [place] [address] Mar, [facility] [id number] [place] [address] Feb, [facility] [id number] [place] [address] Feb, [facility] [id number] [place] [address] Feb, [facility] [id number] [place] [address] Jan, HTN (hypertension) I10 ; Constipation K59.00 ; Chronic pain G89.29 ; Hyperlipidemia E78.5 ; Hypercholesterolemia E78.0 ; Insomnia G47.00 and Anxiety F41.9 [facility] [address] [address] Jan, [facility] [id number] [place] [address] Dec, [facility] [id number] [place] [address] Nov, [facility] [id number] [place] [address] Oct, Chronic kidney disease, unspecified 585.9 ; Chronic pain syndrome 338.4 ; Hyperlipidemia 272.4 and Essential hypertension 401.9 [facility] [address] [place] [address] Oct, Chronic kidney disease 585.9 [facility] [address] [address] 15 Oct, 2014 [facility] [address] [address] Oct, Chronic kidney disease, unspecified 585.9 ; Hypercalcemia 275.42 ; Hyperlipidemia 272.4 ; Essential hypertension 401.9 ; Chronic pain syndrome 338.4 ; Insomnia 780.52 ; Constipation 564.00 ; Environmental allergies V15.09 and Anxiety 300.00 [facility] [address] [address] Oct, Chronic kidney disease 585.9 [facility] [address] [address] Oct, [facility] [address] [address] Oct, Chronic kidney disease 585.9 and Hyperlipidemia 272.4 [facility] [address] [address] Oct, [facility] [address] [address] Oct, [facility] [address] [address] Sep, [facility] [address] [address] Sep, [facility] [address] [address] Sep, Chronic kidney disease 585.9 and Hyperlipidemia 272.4 [facility] [address] [address] Sep, [facility] [id number] [address] August, [facility] [address] [address] August, [facility] [place] [facility] [address] [id number] [place] [address] 14 Jul, 2014 [facility] [place] [facility] [address] [id number] [place] [address] 13 Jul, 2014 [facility] [place] [facility] [address] [id number] [place] [address] Jun, [facility] [place] [facility] [address] [id number] [place] [address] Jun, [facility] [place] [facility] [address] [id number] [place] [address] Jun, [facility] [place] [facility] [address] [id number] [place] [address] Jun, [facility] [place] [facility] [address] [id number] [place] [address] Jun, [facility] [place] [facility] [address] [id number] [place] [address] Jun, [facility] [place] [facility] [address] [id number] [place] [address] Jun, [facility] [place] [facility] [address] [id number] [place] [address] Jun, [facility] [place] [facility] [address] [id number] [place] [address] May, [facility] [place] [facility] [address] [id number] [place] [address] May, [facility] [place] [facility] [address] [id number] [place] [address] May, [facility] [place] [facility] [address] [id number] [place] [address] May, [facility] [place] [facility] [address] [id number] [place] [address] Apr, [facility] [place] [facility] [address] [id number] [place] [address] Apr, [facility] [address] [id number] [place] [address] Apr, [facility] [address] [id number] [place] [address] Apr, [facility] [address] [id number] [place] [address] Apr, [facility] [address] [id number] [place] [address] Apr, [facility] [address] [id number] [place] [address] Apr, [facility] [address] [id number] [place] [address] Apr, [facility] [address] [id number] [place] [address] Apr, [facility] [address] [id number] [place] [address] Apr, [facility] [address] [id number] [place] [address] Apr, [facility] [address] [id number] [place] [address] Mar, [facility] [place] [facility] [address] [id number] [place] [address] Mar, [facility] [address] [id number] [place] [address] Feb, [facility] [place] [facility] [address] [id number] [place] [address] Feb, [facility] [place] [facility] [address] [id number] [place] [address] Feb, [facility] [place] [facility] [address] [id number] [place] [address] Feb, [facility] [place] [facility] [address] [id number] [place] [address] Feb, [facility] [place] [facility] [address] [id number] [place] [address] Feb, [facility] [place] [facility] [address] [id number] [place] [address] Feb, [facility] [place] [facility] [address] [id number] [place] [address] Feb, [facility] [place] [facility] [address] [id number] [place] [address] Feb, [facility] [place] [facility] [address] [id number] [place] [address] Feb, [facility] [place] [facility] [address] [id number] [place] [address] Jan, [facility] [place] [facility] [address] [id number] [place] [address] Jan, [facility] [place] [facility] [address] [id number] [place] [address] Jan, [facility] [place] [facility] [address] [id number] [address] Jan, [facility] [place] [facility] [address] [id number][place] [address] Jan, [facility] [place] [facility] [address] [id number][place] [address] Jan, [facility] [place] [facility] [address] [id number] [place] [address] Jan, [facility] [place] [facility] [address] [id number][place] [address] Jan, [facility] [place] [facility] [address] [id number][place] [address] 16 Jan, 2014 [facility] [place] [facility] [address] [id number][place] [address] Jan, [facility] [place] [facility] [address] [id number] [place] [address] Jan, [facility] [place] [facility] [address] [id number] [place] [address] Dec, [facility] [place] [facility] [address] [id number] [place] [address] Dec, [facility] [place] [facility] [address] [id number] [place] [address] Dec, [facility] [place] [facility] [address] [id number] [place] [address] Dec, [facility] [place] [facility] [address] [id number] [place] [address] Dec, [facility] [place] [facility] [address] [id number] [place] [address] Dec, [facility] [place] [facility] [address] [id number] [place] [address] Dec, [facility] [place] [facility] [address] [id number] [place] [address] Dec, [facility] [place] [facility] [address] [id number] [place] [address] Nov, [facility] [place] [facility] [address] [id number] [place] [address] Nov, [facility] [place] [facility] [address] [id number] [place] [address] Nov, [facility] [place] [facility] [address] [id number] [place] [address] Nov, [facility] [place] [facility] [address] [id number] [place] [address] Nov, [facility] [place] [facility] [address] [id number] [place] [address] Nov, [facility] [place] [facility] [address] [id number] [place] [address] Nov, [facility] [place] [facility] [address] [id number] [place] [address] Nov, [facility] [place] [facility] [address] [id number] [place] [address] Oct, [facility] [place] [facility] [address] [id number] [place] [address] Oct, [facility] [place] [facility] [address] [id number] [place] [address] Oct, [facility] [place] [facility] [address] [id number] [place] [address] Oct, [facility] [place] [facility] [address] [id number] [place] [address] Sep, [facility] [place] [facility] [address] [id number] [place] [address] Sep, [facility] [place] [facility] [address] [id number] [place] [address] Sep, [facility] [place] [facility] [address] [id number] [place] [address] Sep, [facility] [place] [facility] [address] [id number] [place] [address] Sep, [facility] [place] [facility] [address] [id number] [place] [address] Sep, [facility] [place] [facility] [address] [id number] [place] [address] Sep, [facility] [place] [facility] [address] [id number] [place] [address] Sep, [facility] [place] [facility] [address] [id number] [place] [address] August, [facility] [place] [facility] [address] [id number] [place] [address] August, [facility] [place] [facility] [address] [id number] [place] [address] August, [facility] [place] [facility] [address] [id number] [place] [address] August, [facility] [place] [facility] [address] [id number] [place] [address] August, [facility] [place] [facility] [address] [id number] [place] [address] August, [facility] [place] [facility] [address] [id number] [place] [address] August, [facility] [place] [facility] [address] [id number] [place] [address] August, [facility] [place] [facility] [address] [id number] [place] [address] August, [facility] [place] [facility] [address] [id number] [place] [address] August, [facility] [place] [facility] [address] [id number] [place] [address] Jul, [facility] [place] [facility] [address] [id number] [place] [address] Jul, [facility] [place] [facility] [address] [id number] [place] [address] Jul, [facility] [place] [facility] [address] [id number] [place] [address] Jul, [facility] [place] [facility] [address] [id number] [place] [address] Jul, [facility] [place] [facility] [address] [id number] [place] [address] Jul, [facility] [place] [facility] [address] [id number] [place] [address] Jul, [facility] [place] [facility] [address] [id number] [place] [address] 10 Jul, 2013 [facility] [place] [facility] [address] [id number] [place] [address] Jun, [facility] [place] [facility] [address] [id number] [place] [address] Jun, [facility] [place] [facility] [address] [id number] [place] [address] Jun, [facility] [place] [facility] [address] [id number] [place] [address] Jun, [facility] [place] [facility] [address] [id number] [place] [address] Jun, [facility] [place] [facility] [address] [id number] [place] [address] Jun, [facility] [place] [facility] [address] [id number] [place] [address] May, [facility] [place] [facility] [address] [id number] [place] [address] May, [facility] [place] [facility] [address] [id number] [place] [address] May, [facility] [place] [facility] [address] [id number] [place] [address] May, [facility] [place] [facility] [address] [id number] [place] [address] May, [facility] [place] [facility] [address] [id number] [place] [address] May, [facility] [place] [facility] [address] [id number] [place] [address] May, [facility] [place] [facility] [address] [id number] [place] [address] Apr, [facility] [place] [facility] [address] [id number] [place] [address] Apr, [facility] [address] [id number] [place] [address] Apr, [facility] [place] [facility] [address] [id number] [place] [address] 14 Apr, 2013 [facility] [place] [facility] [address] [id number] [place] [address] Apr, [facility] [place] [facility] [address] [id number] [place] [address] Apr, [facility] [address] [id number] [place] [address] Mar, [facility] [place] [facility] [address] [id number] [place] [address] Mar, [facility] [place] [facility] [address] [id number] [place] [address] Mar, [facility] [place] [facility] [address] [id number] [place] [address] Mar, [facility] [place] [facility] [address] [id number] [place] [address] Mar, [facility] [place] [facility] [address] [id number] [place] [address] Mar, [facility] [place] [facility] [address] [id number] [place] [address] 16 Mar, 2013 [facility] [place] [facility] [address] [id number] [place] [address] 16 Mar, 2013 [facility] [place] [facility] [address] [id number] [place] [address] Mar, [facility] [place] [facility] [address] [id number] [place] [address] Mar, [facility] [place] [facility] [address] [id number] [place] [address] Feb, [facility] [place] [facility] [address] [id number] [place] [address] Feb, [facility] [place] [facility] [address] [id number] [place] [address] Feb, [facility] [place] [facility] [address] [id number] [place] [address] Feb, [facility] [place] [facility] [address] [id number] [place] [address] Feb, [facility] [place] [facility] [address] [id number] [place] [address] 14 Feb, 2013 [facility] [place] [facility] [address] [id number] [place] [address] Feb, [facility] [place] [facility] [address] [id number] [place] [address] Feb, [facility] [place] [facility] [address] [id number] [place] [address] Feb, [facility] [place] [facility] [address] [id number] [place] [address] Feb, [facility] [place] [facility] [address] [id number] [place] [address] Jan, [facility] [place] [facility] [address] [id number] [place] [address] Jan, [facility] [place] [facility] [address] [id number] [place] [address] Jan, [facility] [place] [facility] [address] [id number], [place] [address] Jan, [facility] [place] [facility] [address] [id number] [place] [address] Jan, [facility] [place] [facility] [address] [id number] [place] [address] Jan, [facility] [place] [facility] [address] [id number], [place] [address] 17 Jan, 2013 [facility] [place] [facility] [address] [id number] [place] [address] Jan, [facility] [place] [facility] [address] [id number] [place] [address] Jan, [facility] [place] [facility] [address] [id number] [place] [address] Dec, [facility] [place] [facility] [address] [id number] [place] [address] Dec, [facility] [place] [facility] [address] [id number] [place] [address] Dec, [facility] [place] [facility] [address] [id number] [place] [address] Dec, [facility] [place] [facility] [address] [id number] [place] [address] Nov, [facility] [place] [facility] [address] [id number] [place] [address] Nov, [facility] [place] [facility] [address] [id number] [place] [address] Nov, [facility] [place] [facility] [address] [id number] [place] [address] Nov, [facility] [place] [facility] [address] [id number] [place] [address] Nov, [facility] [place] [facility] [address] [id number] [place] [address] Nov, [facility] [place] [facility] [address] [id number] [place] [address] Oct, [facility] [place] [facility] [address] [id number] [place] [address] Oct, [facility] [place] [facility] [address] [id number] [place] [address] Oct, [facility] [place] [facility] [address] [id number] [place] [address] 08 Oct, 2012 [facility] [address] [id number] [place] [address] 27 Sep, 2012 [facility] [place] [facility] [address] [id number] [place] [address] 19 Sep, 2012 [facility] [address] [id number] [place] [address] 17 Sep, 2012 [facility] [place] [facility] [address] [id number] [place] [address] 14 Sep, 2012 [facility] [address] [id number] [place] [address] Sep, [facility] [address] [id number] [place] [address] August, [facility] [address] [id number] [place] [address] August, [facility] [place] [facility] [address] [id number] [place] [address] Jul, [facility] [address] [id number] [place] [address] Jul, [facility] [place] [facility] [address] [id number] [place] [address] 15 Jul, 2012 [facility] [place] [facility] [address] [id number], [place] [address] 09 Jul, 2012 [facility] [place] [facility] [address] [id number], [place] [address] 08 Jul, 2012 [facility] [place] [facility] [address] [id number] [place] [address] 26 Jun, 2012 [facility] [place] [facility] [address] [id number] [place] [address] 20 Jun, 2012 [facility] [place] [facility] [address] [id number] [place] [address] 15 Jun, 2012 [facility] [place] [facility] [address] [id number] [place] [address] Jun, [facility] [address] [id number] [place] [address] Jun, [facility] [place] [facility] [address] [id number] [place] [address] 28 May, 2012 [facility] [place] [facility] [address] [id number] [place] [address] May, [facility] [place] [facility] [address] [id number] [place] [address] May, [facility] [place] [facility] [address] [id number] [place] [address] May, [facility] [place] [facility] [address] [id number] [place] [address] May, [facility] [place] [facility] [address] [id number] [place] [address] 14 May, 2012 [facility] [address] [id number] [place] [address] May, [facility] [place] [facility] [address] [id number] [place] [address] 08 May, 2012 [facility] [place] [facility] [address] [id number] [place] [address] May, [facility] [place] [facility] [address] [id number] [place] [address] Apr, [facility] [place] [facility] [address] [id number] [place] [address] Apr, [facility] [place] [facility] [address] [id number] [place] [address] Apr, [facility] [place] [facility] [address] [id number] [place] [address] Apr, [facility] [place] [facility] [address] [id number] [place] [address] Apr, [facility] [place] [facility] [address] [id number] [place] [address] Mar, [facility] [place] [facility] [address] [id number] [place] [address] Mar, [facility] [place] [facility] [address] [id number] [place] [address] Mar, [facility] [place] [facility] [address] [id number] [place] [address] Mar, [facility] [place] [facility] [address] [id number] [place] [address] Mar, [facility] [place] [facility] [address] [id number] [place] [address] Mar, [facility] [place] [facility] [address] [id number] [place] [address] Mar, [facility] [place] [facility] [address] [id number] [place] [address] Mar, [facility] [place] [facility] [address] [id number] [place] [address] Mar, [facility] [place] [facility] [address] [id number] [place] [address] Mar, [facility] [place] [facility] [address] [id number] [place] [address] 30 Feb, 2012 [facility] [place] [facility] [address] [id number], [place] [address] 30 Feb, 2012 [facility] [place] [facility] [address] [id number] [place] [address] Feb, [facility] [place] [facility] [address] [id number] [place] [address] Feb, [facility] [place] [facility] [address] [id number] [place] [address] Feb, [facility] [place] [facility] [address] [id number] [place] [address] Feb, [facility] [place] [facility] [address] [id number] [place] [address] Feb, [facility] [place] [facility] [address] [id number] [place] [address] Feb, [facility] [place] [facility] [address] [id number] [place] [address] 16 Feb, 2012 [facility] [place] [facility] [address] [id number] [place] [address] 16 Feb, 2012 [facility] [place] [facility] [address] [id number] [place] [address], [place] [address] Feb, [facility] [place] [facility] [address] [id number] [place] [address] Feb, [facility] [place] [facility] [address] [facility] [id number] [place] [address], [place] [address] Feb, [facility] [place] [facility] [address] [id number] [place] [address] Feb, [facility] [place] [facility] [address] [facility] [id number] [place] [address] Feb, [facility] [place] [facility] [address] [facility] [id number] [place] [address] Feb, [facility] [place] [facility] [address] [facility] [id number] [place] [address] Feb, [facility] [place] [facility] [address] [id number] [place] [address] Feb, [facility] [place] [facility] [address] [id number] [place] [address] Jan, [facility] [place] [facility] [address] [facility] [id number] [place] [address] Jan, [facility] [place] [facility] [address] [facility] [id number] [place] [address] Jan, [facility] [place] [facility] [address] [id number] [place] [address] Jan, [facility] [place] [facility] [address] [id number] [place] [address] Jan, [facility] [place] [facility] [address] [id number] [place] [address] Jan, [facility] [place] [facility] [address] [id number] [place] [address] Jan, [facility] [place] [facility] [address] [id number] [place] [address] Jan, [facility] [place] [facility] [address] [id number] [place] [address] Jan, [facility] [place] [facility] [address] [id number] [place] [address] Jan, [facility] [place] [facility] [address] [id number] [address] 24 Dec, 2011 [facility] [place] [facility] [address] [id number] [place] [address] 18 Dec, 2011 [facility] [place] [facility] [address] [id number], [place] [address] Dec, [facility] [place] [facility] [address] [id number], [place] [address] Dec, [facility] [place] [facility] [address] [id number], [place] [address] Nov, [facility] [place] [facility] [address] [id number] [place] [address] Nov, [facility] [place] [facility] [address] [id number] [place] [address] Nov, [facility] [place] [facility] [address] [id number], [place] [address] Nov, [facility] [place] [facility] [address] [id number], [place] [address] Nov, [facility] [place] [facility] [address] [id number] [place] [address] Nov, [facility] [place] [facility] [address] [id number] [place] [address] Oct, [facility] [place] [facility] [address] [id number] [place] [address] Oct, [facility] [place] [facility] [address] [id number] [place] [address] Oct, [facility] [place] [facility] [address] [id number] [place] [address] Oct, [facility] [place] [facility] [address] [id number] [place] [address] Oct, [facility] [place] [facility] [address] [id number] [place] [address] Sep, [facility] [place] [facility] [address] [id number] [place] [address] Sep, [facility] [place] [facility] [address] [id number] [place] [address] Sep, [facility] [place] [facility] [address] [id number] [place] [address] Sep, [facility] [place] [facility] [address] [id number] [place] [address] Sep, [facility] [place] [facility] [address] [id number] [place] [address] August, [facility] [place] [facility] [address] [id number] [place] [address] August, [facility] [place] [facility] [address] [id number] [place] [address] August, [facility] [place] [facility] [address] [id number] [place] [address] August, [facility] [place] [facility] [address] [id number] [place] [address] 27 Jul, 2011 [facility] [place] [facility] [address] [id number] [place] [address] 24 Jul, 2011 [facility] [place] [facility] [address] [id number] [place] [address] Jul, [facility] [place] [facility] [address] [id number] [place] [address] Jul, [facility] [place] [facility] [address] [id number] [place] [address] 18 Jul, 2011 [facility] [place] [facility] [address] [id number] [place] [address] Jul, [facility] [place] [facility] [address] [id number] [place] [address] 11 Jul, 2011 [facility] [place] [facility] [address] [id number] [place] [address] 10 Jul, 2011 [facility] [place] [facility] [address] [id number] [place] [address] 09 Jul, 2011 [facility] [place] [facility] [address] [id number] [place] [address] 07 Jul, 2011 [facility] [place] [facility] [address] [id number] [place] [address] 05 Jul, 2011 [facility] [place] [facility] [address] [id number] [place] [address] Jul, [facility] [place] [facility] [address] [id number] [place] [address] Jul, [facility] [place] [facility] [address] [id number] [place] [address] Jul, [facility] [place] [facility] [address] [id number] [place] [address] 28 Jun, 2011 [facility] [place] [facility] [address] [id number] [place] [address] 27 Jun, 2011 [facility] [place] [facility] [address] [id number] [place] [address] Jun, [facility] [place] [facility] [address] [id number] [place] [address] 16 Jun, 2011 [facility] [place] [facility] [address] [id number] [place] [address] 27 May, 2011 [facility] [place] [facility] [address] [id number] [place] [address] 16 May, 2011 [facility] [place] [facility] [address] [id number] [place] [address] May, [facility] [place] [facility] [address] [id number] [place] [address] Apr, [facility] [place] [facility] [address] [id number] [place] [address] Apr, [facility] [place] [facility] [address] [id number] [place] [address] Apr, [facility] [place] [facility] [address] [id number] [place] [address] Apr, [facility] [place] [facility] [address] [id number] [place] [address] Apr, [facility] [place] [facility] [address] [id number] [place] [address] Mar, [facility] [place] [facility] [address] [id number] [place] [address] Mar, [facility] [place] [facility] [address] [id number] [place] [address] Mar, [facility] [place] [facility] [address] [id number] [place] [address] Mar, [facility] [place] [facility] [address] [id number] [place] [address] 16 Mar, 2011 [facility] [place] [facility] [address] [id number] [place] [address] Mar, [facility] [place] [facility] [address] [id number] [place] [address] Mar, [facility] [place] [facility] [address] [id number] [place] [address] 29 Feb, 2011 [facility] [place] [facility] [address] [id number] [place] [address] 25 Feb, 2011 [facility] [place] [facility] [address] [id number] [place] [address] Feb, [facility] [place] [facility] [address] [id number] [place] [address] Feb, [facility] [place] [facility] [address] [id number] [place] [address] 16 Feb, 2011 [facility] [place] [facility] [address] [id number] [place] [address] 14 Feb, 2011 [facility] [place] [facility] [address] [id number] [place] [address] Feb, [facility] [place] [facility] [address] [id number] [place] [address] 31 Jan, 2011 [facility] [place] [facility] [address] [id number] [place] [address] 31 Jan, 2011 [facility] [place] [facility] [address] [id number] [place] [address] 31 Jan, 2011 [facility] [place] [facility] [address] [id number] [place] [address] 18 Jan, 2011 [facility] [place] [facility] [address] [id number] [place] [address] 17 Jan, 2011 [facility] [place] [facility] [address] [id number] [place] [address] Jan, [facility] [place] [facility] [address] [id number] [place] [address] Jun, [facility] [place] [facility] [address] [id number] [place] [address] 30 Mar, 2010 [facility] [place] [facility] [address] [id number] [place] [address] 20 Mar, 2010 [facility] [place] [facility] [address] [id number] [place] [address] 14 Mar, 2010 [facility] [place] [facility] [address] [id number] [place] [address] 14 Mar, 2010 [facility] [address] [id number] [place] [address] 13 Mar, 2010 [facility] [place] [facility] [address] [id number] [place] [address] 07 Mar, 2010 [facility] [place] [facility] [address] [id number] [place] [address] 02 Mar, 2010 [facility] [place] [facility] [address] [id number] [place] [address] Mar, [facility] [place] [facility] [address] [id number] [place] [address] 30 Feb, 2010 [facility] [place] [facility] [address] [id number] [place] [address] 29 Feb, 2010 [facility] [place] [facility] [address] [id number] [place] [address] 17 Feb, 2010 [facility] [place] [facility] [address] [id number] [address] 17 Feb, 2010 [facility] [place] [facility] [address] [id number] [place] [address] 16 Feb, 2010 [facility] [place] [facility] [address] [id number] [place] [address] 08 Feb, 2010 [facility] [place] [facility] [address] [id number] [place] [address] 04 Feb, 2010 [facility] [place] [facility] [address] [id number], [place] [address] Feb, [facility] [address] [facility] [id number], [place] [address] Jan, [facility] [address] [facility] [id number], [place] [address] Jan, [facility] [address] [facility] [id number], [place] [address] Jan, [facility] [address] [facility] [id number], [place] [address] Jan, [facility] [address] [facility] [id number], [place] [address] 29 Mar, 2009 [facility] [address] [facility] [id number], [place] [address] 22 Mar, 2009 [facility] [id number], [place] [address] Mar, [facility] [id number], [place] [address] Mar, [facility] [id number], [place] [address] 14 Mar, 2009 [facility] [id number], [place] [address] 10 Mar, [facility] [id number], [place] [address] Feb, [facility] [id number], [place] [address] Feb, [facility] [id number], [place] [address] [address], [address] [facility] [address] [facility] [id number], [place] [address] Sep, [facility] [address] [id number], [place] [address] 18 May, 2008 IMMUNIZATIONS No Known Immunizations SOCIAL HISTORY Never Assessed REASON FOR VISIT controlled PLAN OF CARE VITAL SIGNS MEDICATIONS Medication Instructions Dosage Frequency Start Date End Date Duration Status Soma 350 MG Orally Four times a day 1 tablet as needed 6h 28 days Active RESULTS No Results PROCEDURES No Known procedures INSTRUCTIONS MEDICATIONS ADMINISTERED No Known Medications MEDICAL (GENERAL) HISTORY Type Description Date Medical History Hypertension Medical History Hyperlipidemia Medical History chronic back pain since age 26 Medical History Anxiety Medical History Hx of Spontaneous Pneumothorax Surgical History right knee arthroscopy Surgical History colon resection Surgical History tonsillectomy Surgical History Left ear surgery Hospitalization History [facility] in [place]- Spontaneous Pneumothorax Hospitalization History [facility]- Colon resection Hospitalization History via [facility] - diarrhea/ couldnt urinate nov 2017
--- OUTSIDE RECORDS SUMMARY | 2018-10-15 00:59 | XMS REPORT ---
Author Author AGUSTÍN PRATER [facility] Address [address] [place] [address] Care Team Providers Care Substation Operator Chief Name Role Phone AGUSTÍN PRATER Unavailable PROBLEMS Type Condition ICD9-CM Code HIX71-SJ Code Onset Dates Condition Status SNOMED Code Problem Constipation K59.00 Active 02739381 Problem Chronic pain G89.29 Active 99024343 Problem Hyperlipidemia E78.5 Active 85404836 Problem Insomnia G47.00 Active 890928204 Problem Chronic kidney disease, stage III (moderate) N18.3 Active 590554718 Problem Anxiety F41.9 Active 55657083 Problem Vision loss H54.7 Active 631211486 Problem HTN (hypertension) I10 Active 51172848 Problem Thoracic back pain, unspecified back pain laterality, unspecified chronicity M54.6 Active 439477589 Problem Vitamin D deficiency E55.9 Active 22320955 Problem Environmental allergies Z91.09 Active 453633615 Problem Primary insomnia F51.01 Active 1503582 ALLERGIES No Information ENCOUNTERS Encounter Location Date Diagnosis [facility] [id number] [place] [phone] Sep, [place] [address] [address] August, [facility] [id number] [place] [phone] August, Thoracic back pain, unspecified back pain laterality, unspecified chronicity M54.6 [facility] [address] [address] August, [place] [id number] [place] [address] August, Anxiety F41.9 and Thoracic back pain, unspecified back pain laterality, unspecified chronicity M54.6 [facility] [id number] [place] [id number] Jul, [facility] [id number] [place], [place] [address] Jul, Thoracic back pain, unspecified back pain laterality, unspecified chronicity M54.6 [facility] [id number] [place] [address] Jun, Anxiety F41.9 and Thoracic back pain, unspecified back pain laterality, unspecified chronicity M54.6 [facility] [id number] [place] [address] Jun, Anxiety F41.9 and Thoracic back pain, unspecified back pain laterality, unspecified chronicity M54.6 [facility] [id number] [place] [address] Jun, Thoracic back pain, unspecified back pain laterality, unspecified chronicity M54.6 [facility] [id number] [place] [address] Jun, Anxiety F41.9 and Thoracic back pain, unspecified back pain laterality, unspecified chronicity M54.6 [facility] [id number] [place] [id number] May, [facility] [id number] [place] [phone] May, [facility] [id number] [place] [phone] May, [facility] [id number] [place] [address] May, Anxiety F41.9 and Encounter for medication monitoring Z51.81 [facility] [address] [place] [address] May, Anxiety F41.9 and Thoracic back pain, unspecified back pain laterality, unspecified chronicity M54.6 [place] [id number] [place] [address] Apr, Hyperlipidemia 272.4 [place] [id number] [place] [address] Apr, Chronic pain G89.29 ; Anxiety F41.9 ; Cervical radiculopathy M54.12 and Vision loss H54.7 [place] [id number] [place] [address] Apr, [place] [id number] [place] [phone] Apr, Anxiety F41.9 and Thoracic back pain, unspecified back pain laterality, unspecified chronicity M54.6 [facility] [facility] [id number] [place] [address] Mar, [place] [address] [address] Mar, Anxiety F41.9 and Thoracic back pain, unspecified back pain laterality, unspecified chronicity M54.6 [facility] [id number] [place] [phone] Feb, Anxiety F41.9 and Thoracic back pain, unspecified back pain laterality, unspecified chronicity M54.6 [facility] [id number] [place] [id number] 07 Feb, 2018 Thoracic back pain, unspecified back pain laterality, unspecified chronicity M54.6 [facility] [id number] [place] [address] Jan, [place] [id number] [place] [phone] Jan, Anxiety F41.9 and Thoracic back pain, unspecified back pain laterality, unspecified chronicity M54.6 [facility] [facility] [id number] [place] [address] 19 Dec, 2017 Diarrhea of presumed infectious origin R19.7 [facility] [address] [address] 19 Dec, 2017 Diarrhea of presumed infectious origin R19.7 [facility] [id number] [address] 18 Dec, 2017 Thoracic back pain, unspecified back pain laterality, unspecified chronicity M54.6 [facility] [id number] [place] [id number] 17 Dec, 2017 [facility] [id number] [place] [address] 17 Dec, 2017 Anxiety F41.9 and Thoracic back pain, unspecified back pain laterality, unspecified chronicity M54.6 [place] [id number] [place] [id number] 13 Dec, 2017 Diarrhea of presumed infectious origin R19.7 [facility] [id number] [place] [id number] 13 Dec, 2017 [facility] [id number] [place] [phone] Dec, Anxiety F41.9 and Thoracic back pain, unspecified back pain laterality, unspecified chronicity M54.6 [facility] [address] [address] Dec, Anxiety F41.9 and Thoracic back pain, unspecified back pain laterality, unspecified chronicity M54.6 [facility] [address] [place] [id number] Dec, Diarrhea of presumed infectious origin R19.7 ; Anxiety F41.9 ; Thoracic back pain, unspecified back pain laterality, unspecified chronicity M54.6 and HTN (hypertension) I10 [facility] [address] [place] [id number] 05 Dec, 2017 Anxiety F41.9 [facility] [address] [place] [id number] Dec, Anxiety F41.9 ; Diarrhea of presumed infectious origin R19.7 ; Generalized abdominal pain R10.84 and Localized edema R60.0 [place] [address] [address] Nov, [facility] [address] [place] [id number] Nov, Anxiety F41.9 ; Urinary retention R33.9 ; Diarrhea of presumed infectious origin R19.7 ; Weakness R53.1 ; Acute kidney failure, unspecified N17.9 ; Chronic kidney disease, stage III (moderate) N18.3 and Thoracic back pain, unspecified back pain laterality, unspecified chronicity M54.6 [place] [address] [address] Oct, Thoracic back pain, unspecified back pain laterality, unspecified chronicity M54.6 and Anxiety F41.9 [place] [address] [address] Sep, Thoracic back pain, unspecified back pain laterality, unspecified chronicity M54.6 and Anxiety F41.9 [place] [address] [address] Sep, Thoracic back pain, unspecified back pain laterality, unspecified chronicity M54.6 ; Anxiety F41.9 and Encounter for medication monitoring Z51.81 [place] [address] [address] August, [place] [address] [address] August, Thoracic back pain, unspecified back pain laterality, unspecified chronicity M54.6 and Anxiety F41.9 [place] [address] [address] August, Hyperlipidemia E78.5 and HTN (hypertension) I10 [place] [address] [address] August, [place] [id number] [place] [address] August, Medicare welcome exam Z00.00 ; Chronic kidney failure N18.9 ; Anxiety F41.9 ; Chronic pain G89.29 ; Insomnia G47.00 ; Hyperlipidemia E78.5 ; HTN (hypertension) I10 and Thoracic back pain, unspecified back pain laterality, unspecified chronicity M54.6 [place] [id number] [place] [address] Jul, [place] [address] [address] Jul, [place] [address] [address] Jul, [place] [address] [address] Jul, Anxiety F41.9 [place] [id number] [place] [address] Jul, Thoracic back pain, unspecified back pain laterality, unspecified chronicity M54.6 and Anxiety F41.9 [place] [id number] [place] [address] Jun, Thoracic back pain, unspecified back pain laterality, unspecified chronicity M54.6 and Anxiety F41.9 [place] [id number] [place] [phone] May, Thoracic back pain, unspecified back pain laterality, unspecified chronicity M54.6 and Anxiety F41.9 [place] [address] [address] Apr, Thoracic back pain, unspecified back pain laterality, unspecified chronicity M54.6 and Anxiety F41.9 [place] [id number] [place] [address] Mar, [place] [id number] [place] [address] Mar, Thoracic back pain, unspecified back pain laterality, unspecified chronicity M54.6 and Anxiety F41.9 [place] [id number] [place] [phone] Mar, Thoracic back pain, unspecified back pain laterality, unspecified chronicity M54.6 ; HTN (hypertension) I10 ; Hyperlipidemia E78.5 and Anxiety F41.9 [place] [id number] [place] [phone] Feb, Thoracic back pain, unspecified back pain laterality, unspecified chronicity M54.6 and Anxiety F41.9 [place] [id number] [place] [phone] Nov, [place] [address] [address] Oct, [place] [id number] [place] [address] Oct, Thoracic back pain, unspecified back pain laterality, unspecified chronicity M54.6 [place] [id number] [place] [id number] Oct, HTN (hypertension) I10 ; Constipation K59.00 ; Hyperlipidemia E78.5 ; Thoracic back pain, unspecified back pain laterality, unspecified chronicity M54.6 ; Chronic pain G89.29 ; Anxiety F41.9 ; Chronic kidney failure N18.9 ; Environmental allergies Z91.09 ; Vitamin D deficiency E55.9 and Primary insomnia F51.01 [place] [id number] [place] [id number] Sep, Anxiety F41.9 [place] [id number] [place] [phone] Sep, [place] [id number] [place] [phone] August, Anxiety F41.9 [facility] [id number] [place] [id number] August, [facility] [id number] [place] [phone] Jul, Anxiety F41.9 [facility] [id number] [place] [phone] Jul, [facility] [id number] [place] [address] Jun, Anxiety F41.9 [facility] [id number] [place] [phone] Jun, [facility] [id number] [place] [id number] May, [facility] [id number] [place] [phone] May, [facility] [id number] [place] [phone] May, [facility] [id number] [place] [phone] Apr, [facility] [id number] [place] [address] Apr, [facility] [id number] [place] [address] Apr, Anxiety F41.9 [facility] [id number] [place] [address] Apr, Anxiety F41.9 [facility] [id number] [place] [phone] Apr, [facility] [address] [place] [id number] Mar, HTN (hypertension) I10 ; Tremor R25.1 ; Hypercholesterolemia E78.0 ; Constipation K59.00 ; Chronic pain G89.29 ; Hyperlipidemia E78.5 ; Insomnia G47.00 ; Anxiety F41.9 and Thoracic back pain, unspecified back pain laterality, unspecified chronicity M54.6 [facility] [id number] [place] [id number] Mar, Tremor R25.1 ; HTN (hypertension) I10 ; Hypercholesterolemia E78.0 ; Constipation K59.00 ; Chronic pain G89.29 ; Hyperlipidemia E78.5 ; Insomnia G47.00 ; Anxiety F41.9 and Thoracic back pain, unspecified back pain laterality, unspecified chronicity M54.6 [facility] [id number] [place] [phone] Mar, [facility] [id number] [place] [phone] Mar, [facility] [address] [address] Feb, [facility] [id number] [place] [phone] Jan, [facility] [address] [address] Jan, [facility] [id number] [place] [phone] Dec, [facility] [id number] [place] [phone] Nov, [facility] [id number] [place] [id number] Nov, [facility] [id number] [place] [address] Oct, Anxiety F41.9 [facility] [id number] [place] [address] Oct, Chronic pain G89.29 [facility] [id number] [place] [phone] Sep, [facility] [id number] [place] [phone] Sep, [facility] [id number] [place] [phone] Sep, [place] [id number] [place] [phone] Sep, [place] [id number] [place] [id number] Sep, Chronic pain syndrome G89.4 [place] [id number] [place] [phone] Sep, HTN (hypertension) I10 ; Chronic pain G89.29 ; Hypercholesterolemia E78.0 ; Chronic kidney failure N18.9 ; Constipation, unspecified constipation type K59.00 ; Anxiety F41.9 and Thoracic back pain, unspecified back pain laterality, unspecified chronicity M54.6 [place] [id number] [place] [phone] August, Chronic pain syndrome G89.4 [place] [id number] [place] [phone] August, Chronic pain syndrome G89.4 [place] [id number] [place] [address] Jul, Anxiety disorder, unspecified F41.9 and Chronic pain syndrome G89.4 [place] [id number] [place] [id number] Jul, Insomnia, unspecified G47.00 and Chronic pain syndrome G89.4 [place] [id number] [place] [id number] Jul, Allergic rhinitis J30.9 [facility] [id number] [place] [id number] Jul, Constipation, unspecified K59.00 [place] [address] [place] [address] Jul, [facility] [address] [place] [address] Jun, [facility] [address] [place] [address] Jun, [facility] [id number] [place] [address], [place] [address] Jun, [facility] [address] [place] [address] Jun, [facility] [id number] [place] [address], [place] [address] Jun, [facility] [id number] [place] [address] Jun, [facility] [id number] [place] [address] May, [facility] [address] [place] [address] May, [facility] [address], [place] [address] May, Anxiety F41.9 ; Insomnia G47.00 ; Hyperlipidemia E78.5 ; Chronic pain G89.29 ; HTN (hypertension) I10 ; Environmental allergies V15.09 and Constipation 564.00 [facility] [address], [place] [address] Apr, [facility] [address], [place] [address] Apr, [facility] [address], [place] [address] Apr, [facility] [address], [place] [address] Mar, [facility] [address], [place] [address] Mar, [facility] [id number] [place] [phone] Mar, [facility] [id number] [place] [address] Feb, [facility] [id number] [place] [phone] Feb, [facility] [id number] [place] [address] Feb, [facility] [address] [address] Jan, HTN (hypertension) I10 ; Constipation K59.00 ; Chronic pain G89.29 ; Hyperlipidemia E78.5 ; Hypercholesterolemia E78.0 ; Insomnia G47.00 and Anxiety F41.9 [facility] [id number] [place] [id number] Jan, [facility] [id number] [place] [address] Dec, [facility] [id number] [place] [address] Nov, [facility] [id number] [place] [address] Oct, Chronic kidney disease, unspecified 585.9 ; Chronic pain syndrome 338.4 ; Hyperlipidemia 272.4 and Essential hypertension 401.9 [facility] [address], [place] [address] Oct, Chronic kidney disease 585.9 [facility] [id number] [place] [address] Oct, [facility] [address] [place] [address] Oct, Chronic kidney disease, unspecified 585.9 ; Hypercalcemia 275.42 ; Hyperlipidemia 272.4 ; Essential hypertension 401.9 ; Chronic pain syndrome 338.4 ; Insomnia 780.52 ; Constipation 564.00 ; Environmental allergies V15.09 and Anxiety 300.00 [facility] [address], [place] [address] 15 Oct, 2014 Chronic kidney disease 585.9 [facility] [address], [place] [address] Oct, [facility] [id number] [place] [address] Oct, Chronic kidney disease 585.9 and Hyperlipidemia 272.4 [facility] [id number] [place] [phone] Oct, [facility] [address], [place] [address] Oct, [facility] [id number], [place] [address] Sep, [facility] [address], [place] [address] Sep, [facility] [address], [place] [address] Sep, Chronic kidney disease 585.9 and Hyperlipidemia 272.4 [facility] [address], [place] [address] Sep, [facility] [address], [place] [address] August, [facility] [address], [place] [address] August, [facility] [address], [place] [address] Jul, [facility] [address], [place] [address] Jul, [facility] [id number] [place] [address] Jun, [facility] [place] [facility] [address] [id number] [place] [address] Jun, [facility] [place] [facility] [address] [id number] [place] [address] Jun, [facility] [place] [facility] [address] [id number] [place] [address] Jun, [facility] [place] [facility] [address] [id number] [place] [address] Jun, [facility] [place] [facility] [address] [id number] [place] [address] Jun, [facility] [place] [facility] [address] [id number] [place] [address] Jun, [facility] [place] [facility] [address] [id number] [place] [address] Jun, [facility] [place] [facility] [address] [id number] [place] [address] May, [facility] [place] [facility] [address] [id number] [place] [address] May, [facility] [place] [facility] [address] [id number] [place] [address] May, [facility] [place] [facility] [address] [id number] [place] [address] May, [facility] [place] [facility] [address] [id number] [place] [address] Apr, [facility] [place] [facility] [address] [id number] [place] [address] Apr, [facility] [place] [facility] [address] [id number] [place] [address] Apr, [facility] [place] [facility] [address] [id number] [place] [address] Apr, [facility] [place] [facility] [address] [id number] [place] [address] Apr, [facility] [place] [facility] [address] [id number] [place] [address] Apr, [facility] [place] [facility] [address] [id number] [place] [address] Apr, [facility] [place] [facility] [address] [id number] [place] [address] Apr, [facility] [place] [facility] [address] [id number] [place] [address] Apr, [facility] [place] [facility] [address] [id number] [place] [address] Apr, [facility] [place] [facility] [address] [id number] [place] [address] Apr, [facility] [place] [facility] [address] [id number] [place] [address] Mar, [facility] [place] [facility] [address] [id number] [place] [address] Mar, [facility] [place] [facility] [address] [id number] [place] [address] Feb, [facility] [place] [facility] [address] [id number] [place] [address] Feb, [facility] [place] [facility] [address] [id number], [place] [address] Feb, [facility] [place] [facility] [address] [id number] [place] [address] Feb, [facility] [place] [facility] [address] [id number] [place] [address] Feb, [facility] [place] [facility] [address] [id number] [place] [address] Feb, [facility] [place] [facility] [address] [id number] [place] [address] Feb, [facility] [place] [facility] [address] [id number] [place] [address] Feb, [facility] [place] [facility] [address] [id number] [place] [address] Feb, [facility] [place] [facility] [address] [id number] [place] [address] Feb, [facility] [place] [facility] [address] [id number] [place] [address] Jan, [facility] [place] [facility] [address] [id number] [place] [address] Jan, [facility] [place] [facility] [address] [id number] [place] [address] Jan, [facility] [place] [facility] [address] [id number] [place] [address] Jan, [facility] [place] [facility] [address] [id number] [place] [address] Jan, [facility] [place] [facility] [address] [id number] [place] [address] Jan, [facility] [place] [facility] [address] [facility] [id number] [place] [address] Jan, [facility] [place] [facility] [address] [id number] [place] [address] Jan, [facility] [place] [facility] [address] [id number], [place] [address] 16 Jan, 2014 [facility] [place] [facility] [address] [id number] [place] [address] Jan, [facility] [place] [facility] [address] [id number] [place] [address] Jan, [facility] [place] [facility] [address] [id number] [place] [address] Dec, [facility] [place] [facility] [address] [id number] [place] [address] 26 Dec, 2013 [facility] [place] [facility] [address] [id number] [place] [address] Dec, 2013 [facility] [place] [facility] [address] [id number] [place] [address] Dec, 2013 [facility] [place] [facility] [address] [id number] [place] [address] 18 Dec, 2013 [facility] [place] [facility] [address] [id number] [place] [address] 18 Dec, 2013 [facility] [place] [facility] [address] [id number] [place] [address] Dec, [facility] [place] [facility] [address] [id number] [place] [address] Dec, 2013 [facility] [place] [facility] [address] [id number] [place] [address] Nov, [facility] [place] [facility] [address] [id number] [place] [address] Nov, [facility] [place] [facility] [address] [id number] [place] [address] Nov, [facility] [place] [facility] [address] [id number] [place] [address] Nov, [facility] [place] [facility] [address] [id number] [place] [address] Nov, [facility] [place] [facility] [address] [id number] [place] [address] Nov, [facility] [place] [facility] [address] [id number] [place] [address] Nov, [facility] [place] [facility] [address] [id number] [place] [address] Nov, [facility] [place] [facility] [address] [id number] [place] [address] Oct, [facility] [place] [facility] [address] [id number] [place] [address] Oct, [facility] [place] [facility] [address] [id number] [place] [address] Oct, [facility] [place] [facility] [address] [id number] [place] [address] Oct, [facility] [place] [facility] [address] [id number] [place] [address] Sep, [facility] [place] [facility] [address] [id number] [place] [address] Sep, [facility] [place] [facility] [address] [id number] [place] [address] Sep, [facility] [place] [facility] [address] [id number] [place] [address] Sep, [facility] [place] [facility] [address] [id number] [place] [address] Sep, [facility] [place] [facility] [address] [id number] [place] [address] Sep, [facility] [place] [facility] [address] [id number] [place] [address] Sep, [facility] [place] [facility] [address] [id number] [place] [address] Sep, [facility] [place] [facility] [address] [id number] [place] [address] August, [facility] [place] [facility] [address] [id number] [place] [address] August, [facility] [place] [facility] [address] [id number] [place] [address] August, [facility] [place] [facility] [address] [id number] [place] [address] August, [facility] [place] [facility] [address] [id number] [place] [address] August, [facility] [address] [id number] [place] [address] August, [facility] [address] [id number] [place] [address] August, [facility] [address] [id number] [place] [address] August, [facility] [address] [id number] [place] [address] August, [facility] [address] [id number] [place] [address] August, [facility] [address] [id number] [place] [address] Jul, [facility] [address] [id number] [place] [address] Jul, [facility] [address] [id number] [place] [address] Jul, [facility] [address] [id number] [place] [address] Jul, [facility] [address] [id number] [place] [address] Jul, [facility] [address] [id number] [place] [address] Jul, [facility] [address] [id number] [place] [address] Jul, [facility] [place] [facility] [address] [id number] [place] [address] Jul, [facility] [place] [facility] [address] [id number] [place] [address] Jun, [facility] [place] [facility] [address] [id number] [place] [address] Jun, [facility] [place] [facility] [address] [id number] [place] [address] Jun, [facility] [place] [facility] [address] [id number] [place] [address] Jun, [facility] [place] [facility] [address] [id number] [place] [address] Jun, [facility] [place] [facility] [address] [id number] [place] [address] Jun, [facility] [place] [facility] [address] [id number] [place] [address] May, [facility] [place] [facility] [address] [id number] [place] [address] May, [facility] [place] [facility] [address] [id number] [place] [address] May, [facility] [place] [facility] [address] [id number] [place] [address] May, [facility] [place] [facility] [address] [id number] [place] [address] May, [facility] [place] [facility] [address] [id number] [place] [address] May, [facility] [place] [facility] [address] [id number] [place] [address] May, [facility] [place] [facility] [address] [id number] [place] [address] Apr, [facility] [place] [facility] [address] [id number] [place] [address] Apr, [facility] [place] [facility] [address] [id number] [place] [address] Apr, [facility] [place] [facility] [address] [id number] [place] [address] Apr, [facility] [place] [facility] [address] [id number] [place] [address] 10 Apr, 2013 [facility] [address] [id number] [place] [address] 10 Apr, 2013 [facility] [address] [id number] [place] [address] 31 Mar, 2013 [facility] [address] [id number] [place] [address] Mar, [facility] [address] [id number] [place] [address] Mar, [facility] [address] [id number] [place] [address] Mar, [facility] [address] [id number] [place] [address] Mar, [facility] [address] [id number] [place] [address] Mar, [facility] [address] [id number] [place] [address] 16 Mar, 2013 [facility] [address] [id number] [place] [address] Mar, [facility] [address] [id number] [place] [address] Mar, [facility] [address] [id number] [place] [address] Mar, [facility] [address] [id number] [place] [address] Feb, [facility] [place] [facility] [address] [id number] [place] [address] Feb, [facility] [place] [facility] [address] [id number] [place] [address] Feb, [facility] [place] [facility] [address] [id number] [place] [address] Feb, [facility] [place] [facility] [address] [id number] [place] [address] Feb, [facility] [place] [facility] [address] [id number] [place] [address] Feb, [facility] [place] [facility] [address] [id number] [place] [address] Feb, [facility] [place] [facility] [address] [id number] [place] [address] Feb, [facility] [place] [facility] [address] [id number] [place] [address] Feb, [facility] [place] [facility] [address] [id number] [place] [address] Feb, [facility] [place] [facility] [address] [id number] [place] [address] Jan, [facility] [place] [facility] [address] [id number] [place] [address] Jan, [facility] [place] [facility] [address] [id number] [place] [address] Jan, [facility] [place] [facility] [address] [id number] [place] [address] Jan, [facility] [place] [facility] [address] [id number] [place] [address] Jan, [facility] [place] [facility] [address] [id number], [place] [address] Jan, [facility] [place] [facility] [address] [id number] [place] [address] Jan, [facility] [place] [facility] [address] [id number] [place] [address] Jan, [facility] [place] [facility] [address] [id number] [place] [address] Jan, [facility] [place] [facility] [address] [id number], [place] [address] Dec, [facility] [place] [facility] [address] [id number] [place] [address] Dec, [facility] [place] [facility] [address] [id number] [place] [address] Dec, [facility] [place] [facility] [address] [id number] [place] [address] Dec, [facility] [place] [facility] [address] [id number] [place] [address] Nov, [facility] [place] [facility] [address] [id number] [place] [address] Nov, [facility] [place] [facility] [address] [id number] [place] [address] Nov, [facility] [place] [facility] [address] [id number] [place] [address] Nov, [facility] [place] [facility] [address] [id number] [place] [address] Nov, [facility] [place] [facility] [address] [id number] [place] [address] Nov, [facility] [place] [facility] [address] [id number] [place] [address] Oct, [facility] [place] [facility] [address] [id number] [place] [address] Oct, [facility] [place] [facility] [address] [id number] [place] [address] Oct, [facility] [place] [facility] [address] [id number] [place] [address] Oct, [facility] [place] [facility] [address] [id number] [place] [address] Sep, [facility] [place] [facility] [address] [id number] [place] [address] Sep, [facility] [place] [facility] [address] [id number] [place] [address] 17 Sep, 2012 [facility] [address] [id number] [place] [address] 14 Sep, 2012 [facility] [address] [id number] [place] [address] 10 Sep, 2012 [facility] [address] [id number] [place] [address] August, [facility] [address] [id number] [place] [address] 2012 [facility] [address] [id number] [place] [address] Jul, [facility] [address] [id number] [place] [address] Jul, [facility] [address] [id number] [place] [address] 15 Jul, 2012 [facility] [address] [id number] [place] [address] 09 Jul, 2012 [facility] [address] [id number] [place] [address] 08 Jul, 2012 [facility] [address] [id number] [place] [address] 26 Jun, 2012 [facility] [address] [id number] [place] [address] Jun, [facility] [address] [id number] [place] [address] 15 Jun, 2012 [facility] [address] [id number] [place] [address] 06 Jun, 2012 [facility] [address] [id number] [place] [address] Jun, [facility] [address] [id number] [place] [address] May, [facility] [address] [id number] [place] [address] May, [facility] [place] [facility] [address] [id number] [place] [address] May, [facility] [address] [id number] [place] [address] May, [facility] [place] [facility] [address] [id number] [place] [address] May, [facility] [address] [id number] [place] [address] May, [facility] [address] [id number] [place] [address] May, [facility] [address] [id number] [place] [address] May, [facility] [address] [id number] [place] [address] May, [facility] [address] [id number] [place] [address] Apr, [facility] [address] [id number] [place] [address] Apr, [facility] [address] [id number] [place] [address] Apr, [facility] [place] [facility] [address] [id number] [place] [address] Apr, [facility] [place] [facility] [address] [id number] [place] [address] Apr, [facility] [place] [facility] [address] [id number] [place] [address] Mar, [facility] [place] [facility] [address] [id number] [place] [address] Mar, [facility] [place] [facility] [address] [id number] [place] [address] 20 Mar, 2012 [facility] [place] [facility] [address] [id number] [place] [address] Mar, [facility] [place] [facility] [address] [id number] [place] [address] Mar, [facility] [place] [facility] [address] [id number] [place] [address] Mar, [facility] [place] [facility] [address] [id number] [place] [address] Mar, [facility] [place] [facility] [address] [id number] [place] [address] Mar, [facility] [place] [facility] [address] [id number] [place] [address] Mar, [facility] [place] [facility] [address] [id number] [place] [address] Mar, [facility] [place] [facility] [address] [id number] [place] [address] 30 Feb, 2012 [facility] [place] [facility] [address] [id number] [place] [address] Feb, [facility] [place] [facility] [address] [id number] [place] [address] Feb, [facility] [place] [facility] [address] [id number] [place] [address] Feb, [facility] [place] [facility] [address] [id number] [place] [address] Feb, [facility] [place] [facility] [address] [id number] [place] [address] Feb, [facility] [place] [facility] [address] [id number] [place] [address] Feb, [facility] [place] [facility] [address] [id number] [place] [address] Feb, [facility] [place] [facility] [address] [id number] [place] [address] 16 Feb, 2012 [facility] [place] [facility] [address] [id number] [place] [address] 16 Feb, 2012 [facility] [place] [facility] [address] [id number] [place] [address] 13 Feb, 2012 [facility] [place] [facility] [address] [id number] [place] [address] 13 Feb, 2012 [facility] [place] [facility] [address] [id number] [place] [address] Feb, [facility] [place] [facility] [address] [id number] [place] [address] Feb, [facility] [place] [facility] [address] [id number] [place] [address] Feb, [facility] [place] [facility] [address] [id number], [place] [address] Feb, [facility] [place] [facility] [address] [id number] [place] [address] Feb, [facility] [place] [facility] [address] [id number], [place] [address] Feb, [facility] [place] [facility] [address] [id number], [place] [address] Jan, [facility] [place] [facility] [address] [id number], [place] [address] Jan, [facility] [place] [facility] [address] [id number] [place] [address] Jan, [facility] [place] [facility] [address] [id number], [place] [address] Jan, [facility] [place] [facility] [address] [id number] [place] [address] 24 Jan, 2012 [facility] [place] [facility] [address] [id number] [place] [address] Jan, [facility] [place] [facility] [address] [id number] [place] [address] Jan, [facility] [place] [facility] [address] [id number] [place] [address] Jan, [facility] [place] [facility] [address] [id number] [place] [address] Jan, [facility] [place] [facility] [address] [id number] [place] [address] Jan, [facility] [place] [facility] [address] [id number] [place] [address] 24 Dec, 2011 [facility] [place] [facility] [address] [id number] [place] [address] Dec, [facility] [place] [facility] [address] [id number] [place] [address] Dec, [facility] [place] [facility] [address] [id number] [place] [address] Dec, [facility] [place] [facility] [address] [id number] [place] [address] Nov, [facility] [place] [facility] [address] [id number] [place] [address] Nov, [facility] [place] [facility] [address] [id number] [place] [address] Nov, [facility] [place] [facility] [address] [id number] [place] [address] Nov, [facility] [place] [facility] [address] [id number] [place] [address] Nov, [facility] [place] [facility] [address] [id number] [place] [address] Nov, [facility] [place] [facility] [address] [id number] [place] [address] Oct, [facility] [place] [facility] [address] [id number] [place] [address] Oct, [facility] [place] [facility] [address] [id number] [place] [address] Oct, [facility] [place] [facility] [address] [id number] [place] [address] Oct, [facility] [place] [facility] [address] [id number] [place] [address] Oct, [facility] [place] [facility] [address] [id number] [place] [address] Sep, [facility] [place] [facility] [address] [id number] [place] [address] Sep, [facility] [place] [facility] [address] [id number] [place] [address] Sep, [facility] [place] [facility] [address] [id number] [place] [address] Sep, [facility] [place] [facility] [address] [id number] [place] [address] Sep, [facility] [place] [facility] [address] [id number] [place] [address] August, [facility] [place] [facility] [address] [id number] [place] [address] August, [facility] [place] [facility] [address] [id number] [place] [address] August, [facility] [place] [facility] [address] [id number] [place] [address] August, [facility] [place] [facility] [address] [id number] [place] [address] Jul, [facility] [place] [facility] [address] [id number] [place] [address] Jul, [facility] [place] [facility] [address] [id number] [place] [address] 19 Jul, 2011 [facility] [place] [facility] [address] [id number] [place] [address] 18 Jul, 2011 [facility] [place] [facility] [address] [id number] [place] [address] 18 Jul, 2011 [facility] [place] [facility] [address] [id number] [place] [address] Jul, [facility] [place] [facility] [address] [id number] [place] [address] 11 Jul, 2011 [facility] [place] [facility] [address] [id number] [place] [address] 10 Jul, 2011 [facility] [place] [facility] [address] [id number] [place] [address] Jul, [facility] [place] [facility] [address] [id number] [place] [address] Jul, [facility] [place] [facility] [address] [id number] [place] [address] 05 Jul, 2011 [facility] [place] [facility] [address] [id number] [place] [address] Jul, [facility] [place] [facility] [address] [id number] [place] [address] Jul, [facility] [place] [facility] [address] [id number] [place] [address] Jul, [facility] [place] [facility] [address] [id number] [place] [address] 28 Jun, 2011 [facility] [place] [facility] [address] [id number] [place] [address] 27 Jun, 2011 [facility] [place] [facility] [address] [id number] [place] [address] 20 Jun, 2011 [facility] [place] [facility] [address] [id number] [place] [address] 16 Jun, 2011 [facility] [place] [facility] [address] [id number] [place] [address] 27 May, 2011 [facility] [address] [id number] [place] [address] 16 May, 2011 [facility] [address] [id number] [place] [address] 09 May, 2011 [facility] [address] [id number] [place] [address] Apr, [facility] [address] [id number] [place] [address] 18 Apr, 2011 [facility] [address] [id number] [place] [address] Apr, [facility] [address] [id number] [place] [address] Apr, [facility] [address] [id number] [place] [address] Apr, [facility] [address] [id number] [place] [address] Mar, [facility] [address] [id number] [place] [address] Mar, [facility] [address] [id number] [place] [address] Mar, [facility] [address] [id number] [place] [address] Mar, [facility] [address] [id number] [place] [address] Mar, [facility] [place] [facility] [address] [id number] [place] [address] Mar, [facility] [address] [id number] [place] [address] Mar, [facility] [address] [id number] [place] [address] Feb, [facility] [place] [facility] [address] [id number] [place] [address] 25 Feb, 2011 [facility] [place] [facility] [address] [id number] [place] [address] Feb, [facility] [place] [facility] [address] [id number] [place] [address] 22 Feb, 2011 [facility] [place] [facility] [address] [id number] [place] [address] 16 Feb, 2011 [facility] [place] [facility] [address] [id number] [place] [address] 14 Feb, 2011 [facility] [place] [facility] [address] [id number] [place] [address] 10 Feb, 2011 [facility] [place] [facility] [address] [id number] [place] [address] 31 Jan, 2011 [facility] [place] [facility] [address] [id number] [place] [address] 31 Jan, 2011 [facility] [place] [facility] [address] [id number] [place] [address] 31 Jan, 2011 [facility] [place] [facility] [address] [id number] [place] [address] 18 Jan, 2011 [facility] [place] [facility] [address] [id number] [place] [address] 17 Jan, 2011 [facility] [place] [facility] [address] [id number] [place] [address] 17 Jan, 2011 [facility] [place] [facility] [address] [id number] [place] [address] Jun, [facility] [place] [facility] [address] [id number] [place] [address] 30 Mar, 2010 [facility] [place] [facility] [address] [id number] [place] [address] Mar, [facility] [place] [facility] [address] [id number] [place] [address] 14 Mar, 2010 [facility] [address] [id number] [place] [address] 14 Mar, 2010 [facility] [place] [facility] [address] [id number] [place] [address] 13 Mar, 2010 [facility] [place] [facility] [address] [id number] [place] [address] 07 Mar, 2010 [facility] [place] [facility] [address] [id number] [place] [address] 02 Mar, 2010 [facility] [place] [facility] [address] [id number] [place] [address], [place] [address] Mar, [facility] [place] [facility] [address] [id number] [place] [address] 30 Feb, 2010 [facility] [address] [id number] [place] [address] 29 Feb, 2010 [facility] [place] [facility] [address] [id number] [place] [address] 17 Feb, 2010 [facility] [place] [facility] [address] [id number] [place] [address] 17 Feb, 2010 [facility] [place] [facility] [address] [facility] [id number] [place] [address] 16 Feb, 2010 [facility] [place] [facility] [address] [id number] [place] [address] 08 Feb, 2010 [facility] [place] [facility] [address] [id number] [address] 04 Feb, 2010 [facility] [place] [facility] [address] [id number], [place] [address] Feb, [facility] [place] [facility] [address] [id number] [place] [address] 28 Jan, 2010 [facility] [place] [facility] [address] [facility] [id number], [place] [address] Jan, [facility] [place] [facility] [id number] [address] Jan, [facility] [id number] [address] Jan, [facility] [id number], [place] [address] Mar, [facility] [id number] [place] [id number] Mar, [facility] [id number], [place] [address] Mar, [facility] [id number] [place] [id number] Mar, [facility] [id number] [place] [id number] Mar, [facility] [id number] [place] [id number] Mar, [facility] [id number], [place] [address] Feb, [facility] [id number], [place] [address] Feb, [facility] [id number], [place] [address] Jan, [facility] [id number], [place] [address] Sep, [facility] [id number], [place] [address] May, IMMUNIZATIONS No Known Immunizations SOCIAL HISTORY Never Assessed REASON FOR VISIT Medication question PLAN OF CARE VITAL SIGNS MEDICATIONS Medication [...] Surgical History Left ear surgery Hospitalization History [facility] in [place]- Spontaneous Pneumothorax Hospitalization History [facility]- Colon resection Hospitalization History via [facility] - diarrhea/ couldnt urinate nov 2017
--- OUTSIDE RECORDS SUMMARY | 2018-10-15 01:00 | XMS REPORT ---
Author Author Migration, Doctor Organization [facility] Address Unknown Phone Unavailable Care Team Providers Care Manganese Heater Name Role Phone Migration, Doctor Unavailable Unavailable PROBLEMS Type Condition ICD9-CM Code UPB97-WE Code Onset Dates Condition Status SNOMED Code Problem Constipation K59.00 Active 20482211 Problem Chronic pain G89.29 Active 08941783 Problem Hyperlipidemia E78.5 Active 43758370 Problem Insomnia G47.00 Active 719558030 Problem Chronic kidney disease, stage III (moderate) N18.3 Active 627923979 Problem Anxiety F41.9 Active 58173655 Problem Vision loss H54.7 Active 502460154 Problem HTN (hypertension) I10 Active 67378006 Problem Thoracic back pain, unspecified back pain laterality, unspecified chronicity M54.6 Active 711391783 Problem Vitamin D deficiency E55.9 Active 44776647 Problem Environmental allergies Z91.09 Active 568153847 Problem Primary insomnia F51.01 Active 6529489 ALLERGIES No Information ENCOUNTERS Encounter Location Date Diagnosis [place] [address] [address] August, Anxiety F41.9 and Thoracic back pain, unspecified back pain laterality, unspecified chronicity M54.6 [place] [address] [place] [id number] [place] [address] Jul, [place] [address] [address] Jul, Thoracic back pain, unspecified back pain laterality, unspecified chronicity M54.6 [place] [address] [address] Jun, Anxiety F41.9 and Thoracic back pain, unspecified back pain laterality, unspecified chronicity M54.6 [place] [address] [address] Jun, Anxiety F41.9 and Thoracic back pain, unspecified back pain laterality, unspecified chronicity M54.6 [place] [address] [address] Jun, Thoracic back pain, unspecified back pain laterality, unspecified chronicity M54.6 [place] [address] [address] Jun, Anxiety F41.9 and Thoracic back pain, unspecified back pain laterality, unspecified chronicity M54.6 [place] [address] [address] May, [place] [address] [address] May, [place] [address] [address] May, [place] [address] [address] May, Anxiety F41.9 and Encounter for medication monitoring Z51.81 [place] [address] [address] May, Anxiety F41.9 and Thoracic back pain, unspecified back pain laterality, unspecified chronicity M54.6 [place] [address] [address] Apr, Hyperlipidemia 272.4 [place] [address] [address] Apr, Chronic pain G89.29 ; Anxiety F41.9 ; Cervical radiculopathy M54.12 and Vision loss H54.7 [place] [address] [place] [id number] [place] [address] Apr, [place] [address] [address] Apr, Anxiety F41.9 and Thoracic back pain, unspecified back pain laterality, unspecified chronicity M54.6 [facility] [place] [address] [place] [id number] [place] [address] Mar, [facility] [place] [address] [place] [id number] [place] [address] Mar, Anxiety F41.9 and Thoracic back pain, unspecified back pain laterality, unspecified chronicity M54.6 [facility] [place] [address] [place] [id number] [place] [address] 14 Feb, 2018 Anxiety F41.9 and Thoracic back pain, unspecified back pain laterality, unspecified chronicity M54.6 [place] [address] [place] [id number] [place] [address] 07 Feb, 2018 Thoracic back pain, unspecified back pain laterality, unspecified chronicity M54.6 [place] [address] [place] [id number] [place] [address] 29 Jan, 2018 [facility] [place] [address] [place] [id number] [place] [address] Jan, Anxiety F41.9 and Thoracic back pain, unspecified back pain laterality, unspecified chronicity M54.6 [facility] [place] [address] [place] [id number] [place] [address] 19 Dec, 2017 Diarrhea of presumed infectious origin R19.7 [facility] [place] [address] [place] [id number] [place] [address] 19 Dec, 2017 Diarrhea of presumed infectious origin R19.7 [facility] [place] [address] [place] [id number] [place] [address] 18 Dec, 2017 Thoracic back pain, unspecified back pain laterality, unspecified chronicity M54.6 [facility] [place] [address] [place] [id number] [place] [address] 17 Dec, 2017 [facility] [place] [address] [place] [id number] [place] [address] 17 Dec, 2017 Anxiety F41.9 and Thoracic back pain, unspecified back pain laterality, unspecified chronicity M54.6 [place] [address] [address] Dec, Diarrhea of presumed infectious origin R19.7 [place] [address] [place] [address] Dec, [place] [address] [place] [id number] [place] [address] Dec, Anxiety F41.9 and Thoracic back pain, unspecified back pain laterality, unspecified chronicity M54.6 [place] [address] [place] [id number] [place] [address] Dec, Anxiety F41.9 and Thoracic back pain, unspecified back pain laterality, unspecified chronicity M54.6 [employer] [address] [place], [place] [id number] Dec, Diarrhea of presumed infectious origin R19.7 ; Anxiety F41.9 ; Thoracic back pain, unspecified back pain laterality, unspecified chronicity M54.6 and HTN (hypertension) I10 [place] [address] [place] [address] Dec, Anxiety F41.9 [facility] [employer] [address] [place] [id number] Dec, Anxiety F41.9 ; Diarrhea of presumed infectious origin R19.7 ; Generalized abdominal pain R10.84 and Localized edema R60.0 [place] [address] [place] [address] Nov, [facility] [employer] [address] [place] [id number] Nov, Anxiety F41.9 ; Urinary retention R33.9 ; Diarrhea of presumed infectious origin R19.7 ; Weakness R53.1 ; Acute kidney failure, unspecified N17.9 ; Chronic kidney disease, stage III (moderate) N18.3 and Thoracic back pain, unspecified back pain laterality, unspecified chronicity M54.6 [place] [address] [place] [id number] [place] [address] Oct, Thoracic back pain, unspecified back pain laterality, unspecified chronicity M54.6 and Anxiety F41.9 [place] [address] [place] [address] [place] [address] Sep, Thoracic back pain, unspecified back pain laterality, unspecified chronicity M54.6 and Anxiety F41.9 [place] [address] [place] [address] [place] [address] 04 Sep, 2017 Thoracic back pain, unspecified back pain laterality, unspecified chronicity M54.6 ; Anxiety F41.9 and Encounter for medication monitoring Z51.81 [place] [address] [place] [id number] [place] [address] August, [place] [address] [address] August, Thoracic back pain, unspecified back pain laterality, unspecified chronicity M54.6 and Anxiety F41.9 [place] [address] [place] [id number] [place] [address] August, Hyperlipidemia E78.5 and HTN (hypertension) I10 [place] [address] [place] [id number] [place] [address] August, [place] [address] [place] [id number] [place] [address] August, Medicare welcome exam Z00.00 ; Chronic kidney failure N18.9 ; Anxiety F41.9 ; Chronic pain G89.29 ; Insomnia G47.00 ; Hyperlipidemia E78.5 ; HTN (hypertension) I10 and Thoracic back pain, unspecified back pain laterality, unspecified chronicity M54.6 [place] [address] [place] [id number] [place] [address] Jul, [place] [address] [place] [id number] [place] [address] Jul, [place] [address] [address] Jul, [place] [address] [place] [id number] [place] [address] Jul, Anxiety F41.9 [place] [address] [place] [address] [place] [address] Jul, Thoracic back pain, unspecified back pain laterality, unspecified chronicity M54.6 and Anxiety F41.9 [place] [address] [place] [address] [place] [address] Jun, Thoracic back pain, unspecified back pain laterality, unspecified chronicity M54.6 and Anxiety F41.9 [place] [address] [place] [address] [place] [address] May, Thoracic back pain, unspecified back pain laterality, unspecified chronicity M54.6 and Anxiety F41.9 [place] [address] [place] [address] [place] [address] Apr, Thoracic back pain, unspecified back pain laterality, unspecified chronicity M54.6 and Anxiety F41.9 [place] [address] [place] [address] [place] [address] Mar, [place] [address] [place] [id number] [place] [address] Mar, Thoracic back pain, unspecified back pain laterality, unspecified chronicity M54.6 and Anxiety F41.9 [place] [address] [place] [address] Mar, Thoracic back pain, unspecified back pain laterality, unspecified chronicity M54.6 ; HTN (hypertension) I10 ; Hyperlipidemia E78.5 and Anxiety F41.9 [place] [address] [address] Feb, Thoracic back pain, unspecified back pain laterality, unspecified chronicity M54.6 and Anxiety F41.9 [facility], [place] [address] [place] [id number] [place] [address] Nov, [facility], [place] [address] [place] [id number] [place] [address] Oct, [facility], [place] [address] [place] [id number] [place] [address] Oct, Thoracic back pain, unspecified back pain laterality, unspecified chronicity M54.6 [facility] [place] [address] [place] [id number] [place] [address] Oct, HTN (hypertension) I10 ; Constipation K59.00 ; Hyperlipidemia E78.5 ; Thoracic back pain, unspecified back pain laterality, unspecified chronicity M54.6 ; Chronic pain G89.29 ; Anxiety F41.9 ; Chronic kidney failure N18.9 ; Environmental allergies Z91.09 ; Vitamin D deficiency E55.9 and Primary insomnia F51.01 [facility], [place] [address] [place] [id number] [place] [address] Sep, Anxiety F41.9 [facility], [place] [address] [place] [id number] [place] [address] Sep, [facility], [place] [address] [place] [id number] [place] [address] August, Anxiety F41.9 [facility], [place] [address] [place] [id number] [place] [address] August, [facility] [place] [address] [place] [id number] [place] [address] Jul, Anxiety F41.9 [facility] [place] [address] [place] [id number] [place] [address] Jul, [facility] [place] [address] [place] [id number] [place] [address] Jun, Anxiety F41.9 [facility] [place] [address] [place] [id number] [place] [address] Jun, [facility], [place] [address] [address] May, [facility], [place] [address] [place] [address] May, [facility], [place] [address] [address] May, [facility], [place] [address] [place] [id number] [place] [address] Apr, [facility], [place] [address] [place] [address] Apr, [facility] [place] [address] [place] [id number] [place] [address] Apr, Anxiety F41.9 [facility], [place] [address] [place] [id number] [place] [address] Apr, Anxiety F41.9 [facility], [place] [address] [place] [address] Apr, [facility] [place] [address] [place] [id number] [place] [address] Mar, HTN (hypertension) I10 ; Tremor R25.1 ; Hypercholesterolemia E78.0 ; Constipation K59.00 ; Chronic pain G89.29 ; Hyperlipidemia E78.5 ; Insomnia G47.00 ; Anxiety F41.9 and Thoracic back pain, unspecified back pain laterality, unspecified chronicity M54.6 [facility], [place] [address] [place] [id number] [address] Mar, Tremor R25.1 ; HTN (hypertension) I10 ; Hypercholesterolemia E78.0 ; Constipation K59.00 ; Chronic pain G89.29 ; Hyperlipidemia E78.5 ; Insomnia G47.00 ; Anxiety F41.9 and Thoracic back pain, unspecified back pain laterality, unspecified chronicity M54.6 [facility], [place] [address] [address] 07 Mar, 2016 [facility] [address] [facility] [id number] [place] [address] 02 Mar, 2016 [facility] [address] [facility] [id number] [place] [address] 09 Feb, 2016 [facility] [address] [facility] [id number] [place] [address] 13 Jan, 2016 [facility] [address] [facility] [id number], [place] [address] Jan, [facility] [address] [facility] [id number] [place] [address] 15 Dec, 2015 [facility] [address] [facility] [id number] [place] [address], [place] [address] Nov, [facility] [address] [facility] [id number] [place] [address] Nov, [facility] [address] [facility] [id number], [place] [address] Oct, Anxiety F41.9 [facility] [address] [facility] [id number], [place] [address] Oct, Chronic pain G89.29 [facility] [address] [facility] [id number] [address] 24 Sep, 2015 [facility] [address] [facility] [id number], [place] [address] Sep, [facility] [address] [facility] [id number], [place] [address] Sep, [facility] [address] [facility] [id number], [place] [address] 17 Sep, 2015 [facility] [address] [facility] [id number], [place] [address] 16 Sep, 2015 Chronic pain syndrome G89.4 [facility] [address] [facility] [id number], [place] [address] Sep, HTN (hypertension) I10 ; Chronic pain G89.29 ; Hypercholesterolemia E78.0 ; Chronic kidney failure N18.9 ; Constipation, unspecified constipation type K59.00 ; Anxiety F41.9 and Thoracic back pain, unspecified back pain laterality, unspecified chronicity M54.6 [facility], [place] [address] [place] [id number] [place] [address] August, Chronic pain syndrome G89.4 [facility], [place] [address] [address] August, Chronic pain syndrome G89.4 [place] [address] [address] Jul, Anxiety disorder, unspecified F41.9 and Chronic pain syndrome G89.4 [facility] [place] [address] [address] Jul, Insomnia, unspecified G47.00 and Chronic pain syndrome G89.4 [facility] [place] [address] [address] Jul, Allergic rhinitis J30.9 [facility] [place] [address] [address] Jul, Constipation, unspecified K59.00 [facility] [place] [address] [place] [id number] [place] [address] Jul, [facility] [place] [address] [place] [id number] [place] [address] Jun, [facility] [place] [address] [place] [id number] [place] [address] Jun, [facility] [place] [address] [place] [id number] [place] [address] Jun, [facility] [place] [address] [place] [id number] [place] [address] Jun, [facility], [place] [address] [place] [address] Jun, [facility] [place] [address] [place] [id number] [place] [address] Jun, [facility] [place] [address] [place] [id number] [place] [address] May, [facility] [place] [address] [place] [id number] [place] [address] May, [facility] [place] [address] [place] [id number] [place] [address] May, Anxiety F41.9 ; Insomnia G47.00 ; Hyperlipidemia E78.5 ; Chronic pain G89.29 ; HTN (hypertension) I10 ; Environmental allergies V15.09 and Constipation 564.00 [facility] [place] [address] [place] [id number] [place] [address] Apr, [facility] [place] [address] [place] [id number] [place] [address] Apr, [facility] [place] [address] [place] [id number] [place] [address] Apr, [facility] [place] [address] [place] [id number] [place] [address] Mar, [facility] [place] [address] [place] [id number] [place] [address] Mar, [facility] [place] [address] [place] [id number] [place] [address] Mar, [facility] [place] [address] [place] [id number] [place] [address] Feb, [facility] [place] [address] [place] [id number] [place] [address] Feb, [facility] [place] [address] [place] [id number] [place] [address] Feb, [facility] [place] [address] [place] [id number] [place] [address] Jan, HTN (hypertension) I10 ; Constipation K59.00 ; Chronic pain G89.29 ; Hyperlipidemia E78.5 ; Hypercholesterolemia E78.0 ; Insomnia G47.00 and Anxiety F41.9 [facility], [place] [address] [place] [id number] [place] [address] Jan, [address] [address] Dec, [place] [address] [address] Nov, [address] [address] Oct, Chronic kidney disease, unspecified 585.9 ; Chronic pain syndrome 338.4 ; Hyperlipidemia 272.4 and Essential hypertension 401.[address] [address] Oct, Chronic kidney disease 585.9 [place] [id number] [place] [address] Oct, [place] [id number] [place] [address] Oct, Chronic kidney disease, unspecified 585.9 ; Hypercalcemia 275.42 ; Hyperlipidemia 272.4 ; Essential hypertension 401.9 ; Chronic pain syndrome 338.4 ; Insomnia 780.52 ; Constipation 564.00 ; Environmental allergies V15.09 and Anxiety 300.00 [place] [id number] [place] [address] Oct, Chronic kidney disease 585.[address] [address] Oct, [place] [id number] [place] [address] Oct, Chronic kidney disease 585.9 and Hyperlipidemia 272.[address] [place] [address] 10 Oct, 2014 [facility] [address] [id number] [place] [address] 10 Oct, 2014 [facility] [place] [facility] [address] [facility] [id number] [place] [address] 18 Sep, 2014 [facility] [place] [facility] [address] [id number] [place] [address] 15 Sep, 2014 [facility] [place] [facility] [address] [facility] [id number] [place] [address] 15 Sep, 2014 Chronic kidney disease 585.9 and Hyperlipidemia 272.4 [facility] [place] [facility] [address] [id number] [place] [address], [place] [address] Sep, [facility] [place] [facility] [address] [place] [id number] [place] [address] August, [facility] [place] [facility] [address] [facility] [id number] [place] [address] August, [facility] [place] [facility] [address] [facility] [id number] [place] [address] 14 Jul, 2014 [facility] [place] [facility] [address] [facility] [id number] [place] [address] Jul, [facility] [place] [facility] [address] [facility] [id number] [place] [address] 20 Jun, 2014 [facility] [place] [facility] [address] [facility] [id number] [place] [address] 20 Jun, 2014 [facility] [place] [facility] [address] [id number] [place] [address] 16 Jun, 2014 [facility] [place] [facility] [address] [id number] [place] [address] 16 Jun, 2014 [facility] [place] [facility] [address] [id number] [place] [address] 09 Jun, 2014 [facility] [place] [facility] [address] [facility] [id number] [place] [address] Jun, [facility] [place] [facility] [address] [id number] [place] [address] Jun, [facility] [place] [facility] [address] [id number] [place] [address] Jun, [facility] [place] [facility] [address] [id number] [place] [address] May, [facility] [place] [facility] [address] [id number] [place] [address] May, [facility] [place] [facility] [address] [id number] [place] [address] May, [facility] [place] [facility] [address] [id number] [place] [address] May, [facility] [place] [facility] [address] [id number] [place] [address] Apr, [facility] [place] [facility] [address] [id number] [place] [address] Apr, [facility] [place] [facility] [address] [id number] [place] [address] Apr, [facility] [place] [facility] [address] [id number] [place] [address] Apr, [facility] [place] [facility] [address] [id number] [place] [address] Apr, [facility] [place] [facility] [address] [id number] [place] [address] Apr, [facility] [place] [facility] [address] [id number] [place] [address] Apr, [facility] [place] [facility] [address] [id number] [place] [address] Apr, [facility] [place] [facility] [address] [id number] [place] [address] Apr, [facility] [place] [facility] [address] [id number] [place] [address] 16 Apr, 2014 [facility] [place] [facility] [address] [id number] [place] [address] Apr, [facility] [place] [facility] [address] [id number] [place] [address] Mar, [facility] [place] [facility] [address] [id number] [place] [address] Mar, [facility] [place] [facility] [address] [id number] [place] [address] Feb, [facility] [place] [facility] [address] [id number] [place] [address] Feb, [facility] [place] [facility] [address] [id number] [place] [address] Feb, [facility] [place] [facility] [address] [id number] [place] [address] Feb, [facility] [place] [facility] [address] [id number] [place] [address] Feb, [facility] [place] [facility] [address] [id number] [place] [address] Feb, [facility] [facility] [place] [facility] [address] [id number] [place] [address] Feb, [facility] [place] [facility] [address] [id number] [place] [address] Feb, [facility] [place] [facility] [address] [id number] [place] [address] Feb, [facility] [place] [facility] [address] [id number] [place] [address] Feb, [facility] [place] [facility] [address] [id number] [place] [address] Jan, [facility] [place] [facility] [address] [id number] [place] [address] Jan, [facility] [place] [facility] [address] [id number] [place] [address] Jan, [facility] [place] [facility] [address] [id number] [place] [address] Jan, [facility] [place] [facility] [address] [id number] [place] [address] Jan, [facility] [place] [facility] [address] [id number] [place] [address] Jan, [facility] [place] [facility] [address] [id number] [place] [address] Jan, [facility] [place] [facility] [address] [id number] [place] [address] Jan, [facility] [place] [facility] [address] [id number] [place] [address] 16 Jan, 2014 [facility] [place] [facility] [address] [id number] [place] [address] Jan, [facility] [place] [facility] [address] [id number] [place] [address] 06 Jan, 2014 [facility] [place] [facility] [address] [id number], [place] [address] 26 Dec, 2013 [facility] [place] [facility] [address] [id number], [place] [address] 26 Dec, 2013 [facility] [place] [facility] [address] [id number], [place] [address] 19 Dec, 2013 [facility] [place] [facility] [address] [id number] [place] [address] 19 Dec, 2013 [facility] [place] [facility] [address] [id number][place] [address] 18 Dec, 2013 [facility] [place] [facility] [address] [id number] [place] [address] 18 Dec, 2013 [facility] [place] [facility] [address] [id number] [place] [address] Dec, [facility] [place] [facility] [address] [id number] [place] [address] Dec, [facility] [place] [facility] [address] [id number] [place] [address] Nov, [facility] [place] [facility] [address] [id number] [place] [address] Nov, [facility] [place] [facility] [address] [id number] [place] [address] Nov, [facility] [place] [facility] [address] [id number] [place] [address] Nov, [facility] [place] [facility] [address] [id number] [place] [address] Nov, [facility] [place] [facility] [address] [id number] [place] [address] Nov, [facility] [place] [facility] [address] [id number] [place] [address] Nov, [facility] [place] [facility] [address] [id number] [place] [address] Nov, [facility] [place] [facility] [address] [id number] [place] [address] Oct, [facility] [place] [facility] [address] [id number] [place] [address] Oct, [facility] [place] [facility] [address] [id number] [place] [address] Oct, [facility] [place] [facility] [address] [id number] [place] [address] Oct, [facility] [place] [facility] [address] [id number] [place] [address] Sep, [facility] [place] [facility] [address] [id number] [place] [address] Sep, [facility] [place] [facility] [address] [id number] [place] [address] Sep, [facility] [place] [facility] [address] [id number] [place] [address] Sep, [facility] [place] [facility] [address] [id number] [place] [address] Sep, [facility] [place] [facility] [address] [id number] [place] [address] Sep, [facility] [place] [facility] [address] [id number] [place] [address] Sep, [facility] [place] [facility] [address] [id number] [place] [address] Sep, [facility] [place] [facility] [address] [id number] [place] [address] August, [facility] [place] [facility] [address] [id number] [place] [address] August, [facility] [place] [facility] [address] [id number] [place] [address] August, [facility] [place] [facility] [address] [id number] [place] [address] August[facility] [place] [facility] [address] [id number] [place] [address] August, [facility] [place] [facility] [address] [id number] [place] [address] August, [facility] [place] [facility] [address] [id number] [place] [address] August, [facility] [place] [facility] [address] [id number] [place] [address] August, [facility] [place] [facility] [address] [id number] [place] [address] August, [facility] [place] [facility] [address] [id number] [place] [address] August, [facility] [place] [facility] [address] [id number] [place] [address] Jul, [facility] [place] [facility] [address] [id number] [place] [address] Jul, [facility] [place] [facility] [address] [id number] [place] [address] Jul, [facility] [place] [facility] [address] [id number] [place] [address] Jul, [facility] [place] [facility] [address] [id number] [place] [address] Jul, [facility] [place] [facility] [address] [id number] [place] [address] Jul, [facility] [place] [facility] [address] [id number] [place] [address] Jul, [facility] [place] [facility] [address] [id number] [place] [address] Jul, [facility] [place] [facility] [address] [id number] [place] [address] Jun, [facility] [place] [facility] [address] [id number] [place] [address] Jun, [facility] [place] [facility] [address] [id number] [place] [address] Jun, [facility] [place] [facility] [address] [id number] [place] [address] Jun, [facility] [place] [facility] [address] [id number] [place] [address] Jun, [facility] [place] [facility] [address] [id number] [place] [address] Jun, [facility] [place] [facility] [address] [id number] [place] [address] May, [facility] [place] [facility] [address] [id number] [place] [address] May, [facility] [place] [facility] [address] [id number] [place] [address] May, [facility] [place] [facility] [address] [id number] [place] [address] May, [facility] [place] [facility] [address] [id number] [place] [address] May, [facility] [place] [facility] [address] [id number] [place] [address] May, [facility] [place] [facility] [address] [id number] [place] [address] May, [facility] [place] [facility] [address] [id number] [place] [address] Apr, [facility] [place] [facility] [address] [id number] [place] [address] Apr, [facility] [place] [facility] [address] [id number] [place] [address] Apr, [facility] [place] [facility] [address] [id number] [place] [address] Apr[facility] [place] [facility] [address] [id number] [place] [address] Apr, [facility] [place] [facility] [address] [id number] [place] [address] Apr, [facility] [place] [facility] [address] [id number] [place] [address] Mar, [facility] [place] [facility] [address] [id number] [place] [address] Mar, [facility] [place] [facility] [address] [id number] [place] [address] Mar, [facility] [place] [facility] [address] [id number] [place] [address] Mar, [facility] [address] [id number] [place] [address] Mar, [facility] [place] [facility] [address] [id number] [place] [address] Mar, [facility] [place] [facility] [address] [facility] [id number] [place] [address] 16 Mar, 2013 [facility] [place] [facility] [address] [id number] [place] [address] 16 Mar, 2013 [facility] [place] [facility] [address] [id number] [place] [address] Mar, [facility] [place] [facility] [address] [id number] [place] [address] Mar, [facility] [place] [facility] [address] [id number] [place] [address] Feb, [facility] [place] [facility] [address] [id number], [place] [address] Feb, [facility] [place] [facility] [address] [id number], [place] [address] Feb, [facility] [place] [facility] [address] [id number], [place] [address] Feb, [facility] [place] [facility] [address] [id number], [place] [address] 14 Feb, 2013 [facility] [place] [facility] [address] [id number], [place] [address] 14 Feb, 2013 [facility] [place] [facility] [address] [id number], [place] [address] Feb, [facility] [place] [facility] [address] [id number], [place] [address] Feb, [facility] [place] [facility] [address] [id number], [place] [address] 08 Feb, 2013 [facility] [place] [facility] [address] [id number] [place] [address] Feb, [facility] [place] [facility] [address] [id number] [place] [address] Jan, [facility] [place] [facility] [address] [id number] [place] [address] Jan, [facility] [place] [facility] [address] [id number] [place] [address] Jan, [facility] [place] [facility] [address] [id number] [place] [address] Jan, [facility] [place] [facility] [address] [id number] [place] [address] Jan, [facility] [place] [facility] [address] [id number] [place] [address] Jan, [facility] [place] [facility] [address] [id number] [place] [address] Jan, [facility] [place] [facility] [address] [id number] [place] [address] Jan, [facility] [place] [facility] [address] [id number] [place] [address] Jan, [facility] [place] [facility] [address] [id number] [place] [address] Dec, [facility] [place] [facility] [address] [id number] [place] [address] Dec, [facility] [place] [facility] [address] [id number] [place] [address] 21 Dec, 2012 [facility] [place] [facility] [address] [id number] [place] [address] 13 Dec, 2012 [facility] [place] [facility] [address] [id number] [place] [address] Nov, [facility] [place] [facility] [address] [id number] [place] [address] Nov, [facility] [place] [facility] [address] [id number] [place] [address] Nov, [facility] [address] [id number] [place] [address] Nov, [facility] [address] [id number] [place] [address] Nov, [facility] [address] [id number] [place] [address] Nov, [facility] [address] [id number] [place] [address] Oct, [facility] [address] [id number] [place] [address] Oct, [facility] [address] [id number] [place] [address] Oct, [facility] [address] [id number] [place] [address] Oct, [facility] [address] [id number] [place] [address] Sep, [facility] [address] [id number] [place] [address] Sep, [facility] [address] [id number] [place] [address] Sep, [facility] [place] [facility] [address] [id number] [place] [address] Sep, [facility] [place] [facility] [address] [id number] [place] [address] Sep, [facility] [place] [facility] [address] [id number] [place] [address] August, [facility] [place] [facility] [address] [id number] [place] [address] August, [facility] [place] [facility] [address] [id number] [place] [address] Jul, [facility] [address] [id number] [place] [address] Jul, [facility] [address] [id number] [place] [address] 15 Jul, 2012 [facility] [address] [id number] [place] [address] Jul, [facility] [address] [id number] [place] [address] Jul, [facility] [address] [id number] [place] [address] Jun, [facility] [address] [id number] [place] [address] Jun, [facility] [address] [facility] [id number] [place] [address] Jun, [facility] [address] [id number] [place] [address] Jun, [facility] [address] [id number] [place] [address] Jun, [facility] [address] [facility] [id number] [place] [address] 28 May, 2012 [facility] [address] [id number] [place] [address] May, [facility] [place] [facility] [address] [id number] [place] [address] May, [facility] [place] [facility] [address] [id number] [place] [address] 21 May, 2012 [facility] [place] [facility] [address] [id number] [place] [address] 20 May, 2012 [facility] [place] [facility] [address] [facility] [id number], [place] [address] 14 May, 2012 [facility] [place] [facility] [address] [id number] [place] [address] May, [facility] [address] [id number] [place] [address] May, [facility] [address] [id number] [place] [address] May, [facility] [address] [id number] [place] [address] Apr, [facility] [address] [id number] [place] [address] Apr, [facility] [address] [id number] [place] [address] Apr, [facility] [address] [id number] [place] [address] Apr, [facility] [address] [id number] [place] [address] Apr, [facility] [address] [id number] [place] [address] Mar, [facility] [address] [id number] [place] [address] Mar, [facility] [address] [id number] [place] [address] Mar, [facility] [address] [id number] [place] [address] Mar, [facility] [address] [id number] [place] [address] Mar, [facility] [place] [facility] [address] [id number] [place] [address] Mar, [facility] [address] [id number] [place] [address] 17 Mar, 2012 [facility] [address] [id number], [place] [address] 17 Mar, 2012 [facility] [place] [facility] [address] [id number] [place] [address] Mar, [facility] [place] [facility] [address] [id number] [place] [address] Mar, [facility] [place] [facility] [address] [id number] [place] [address] 30 Feb, 2012 [facility] [place] [facility] [address] [id number] [place] [address] 30 Feb, 2012 [facility] [place] [facility] [address] [id number] [place] [address] Feb, [facility] [place] [facility] [address] [id number] [place] [address] Feb, [facility] [place] [facility] [address] [id number] [place] [address] Feb, [facility] [place] [facility] [address] [id number] [place] [address] Feb, [facility] [place] [facility] [address] [id number] [place] [address] Feb, [facility] [place] [facility] [address] [id number] [place] [address] Feb, [facility] [place] [facility] [address] [id number], [place] [address] 16 Feb, 2012 [facility] [place] [facility] [address] [id number] [place] [address] 16 Feb, 2012 [facility] [place] [facility] [address] [id number] [place] [address] 13 Feb, 2012 [facility] [place] [facility] [address] [id number] [place] [address] 13 Feb, 2012 [facility] [place] [facility] [address] [id number] [place] [address] 12 Feb, 2012 [facility] [place] [facility] [address] [id number] [place] [address] Feb, [facility] [place] [facility] [address] [id number] [place] [address] Feb, [facility] [place] [facility] [address] [id number] [place] [address] Feb, [facility] [place] [facility] [address] [id number] [place] [address] Feb, [facility] [place] [facility] [address] [id number] [place] [address] Feb, [facility] [place] [facility] [address] [id number] [place] [address] Jan, [facility] [place] [facility] [address] [id number] [place] [address] Jan, [facility] [place] [facility] [address] [id number] [place] [address] Jan, [facility] [place] [facility] [address] [id number] [place] [address] Jan, [facility] [place] [facility] [address] [id number] [place] [address] Jan, [facility] [place] [facility] [address] [id number] [place] [address] Jan, [facility] [place] [facility] [address] [id number] [place] [address] Jan, [facility] [place] [facility] [address] [id number] [place] [address] Jan, [facility] [place] [facility] [address] [id number] [place] [address] Jan, [facility] [place] [facility] [address] [id number] [place] [address] Jan, [facility] [place] [facility] [address] [id number] [place] [address] Dec, [facility] [place] [facility] [address] [id number] [place] [address] Dec, [facility] [place] [facility] [address] [id number] [place] [address] Dec, [facility] [place] [facility] [address] [id number] [place] [address] Dec, [facility] [place] [facility] [address] [id number] [place] [address] Nov, [facility] [place] [facility] [address] [id number] [place] [address] Nov, [facility] [place] [facility] [address] [id number] [place] [address] Nov, [facility] [place] [facility] [address] [id number] [place] [address] Nov, [facility] [place] [facility] [address] [id number] [place] [address] Nov, [facility] [place] [facility] [address] [id number] [place] [address] Nov, [facility] [place] [facility] [address] [id number] [place] [address] Oct, [facility] [place] [facility] [address] [id number] [place] [address] Oct, [facility] [place] [facility] [address] [id number] [place] [address] Oct, [facility] [place] [facility] [address] [id number] [place] [address] Oct, [facility] [place] [facility] [address] [id number] [place] [address] Oct, [facility] [place] [facility] [address] [id number] [place] [address] Sep, [facility] [place] [facility] [address] [id number] [place] [address] Sep, [facility] [place] [facility] [address] [id number] [place] [address] Sep, [facility] [place] [facility] [address] [id number] [place] [address] Sep, [facility] [place] [facility] [address] [id number] [place] [address] Sep, [facility] [place] [facility] [address] [id number] [place] [address] August, [facility] [place] [facility] [address] [id number] [place] [address] August, [facility] [place] [facility] [address] [id number] [place] [address] August, [facility] [address] [id number] [place] [address] August, [facility] [place] [facility] [address] [id number] [place] [address] 27 Jul, 2011 [facility] [place] [facility] [address] [id number] [place] [address] 24 Jul, 2011 [facility] [place] [facility] [address] [id number] [place] [address] Jul, [facility] [place] [facility] [address] [id number] [place] [address] 18 Jul, 2011 [facility] [place] [facility] [address] [id number] [place] [address] 18 Jul, 2011 [facility] [place] [facility] [address] [id number] [place] [address] 12 Jul, 2011 [facility] [place] [facility] [address] [id number] [place] [address] 11 Jul, 2011 [facility] [place] [facility] [address] [id number] [place] [address] 10 Jul, 2011 [facility] [place] [facility] [address] [id number] [place] [address] Jul, [facility] [place] [facility] [address] [id number] [place] [address] Jul, [facility] [place] [facility] [address] [id number] [place] [address] Jul, [facility] [place] [facility] [address] [id number] [place] [address] Jul, [facility] [place] [facility] [address] [id number] [place] [address] Jul, [facility] [place] [facility] [address] [id number] [place] [address] Jul, [facility] [place] [facility] [address] [id number] [place] [address] Jun, [facility] [place] [facility] [address] [id number] [place] [address] Jun, [facility] [place] [facility] [address] [id number] [place] [address] Jun, [facility] [place] [facility] [address] [id number] [place] [address] Jun, [facility] [place] [facility] [address] [id number] [place] [address] May, [facility] [place] [facility] [address] [id number] [place] [address] May, [facility] [place] [facility] [address] [id number] [place] [address] May, [facility] [place] [facility] [address] [id number] [place] [address] Apr, [facility] [place] [facility] [address] [id number] [place] [address] Apr, [facility] [place] [facility] [address] [id number] [place] [address] 13 Apr, 2011 [facility] [place] [facility] [address] [id number] [place] [address] Apr, [facility] [place] [facility] [address] [id number] [place] [address] Apr, [facility] [place] [facility] [address] [id number] [place] [address] Mar, [facility] [place] [facility] [address] [id number] [place] [address] Mar, [facility] [place] [facility] [address] [id number] [place] [address] Mar, [facility] [place] [facility] [address] [id number] [place] [address] Mar, [facility] [place] [facility] [address] [id number] [place] [address] Mar, [facility] [place] [facility] [address] [id number] [place] [address] Mar, [facility] [place] [facility] [address] [id number] [place] [address] Mar, [facility] [place] [facility] [address] [id number] [place] [address] 29 Feb, 2011 [facility] [place] [facility] [address] [id number] [address] Feb, [facility] [place] [facility] [address] [id number] [place] [address] Feb, [facility] [place] [facility] [address] [id number] [place] [address] Feb, [facility] [place] [facility] [address] [id number] [place] [address] 16 Feb, 2011 [facility] [place] [facility] [address] [id number] [place] [address] 14 Feb, 2011 [facility] [place] [facility] [address] [id number] [place] [address] 10 Feb, 2011 [facility] [address] [id number] [place] [address] 31 Jan, 2011 [facility] [place] [facility] [address] [id number] [place] [address] Jan, [facility] [address] [id number] [place] [address] 31 Jan, 2011 [facility] [place] [facility] [address] [id number] [place] [address] 18 Jan, 2011 [facility] [address] [id number] [place] [address] Jan, [facility] [address] [id number] [place] [address] 17 Jan, 2011 [facility] [address] [id number] [place] [address] Jun, [facility] [address] [id number] [place] [address] 30 Mar, 2010 [facility] [place] [facility] [address] [id number] [place] [address] 20 Mar, 2010 [facility] [address] [id number] [place] [address] 14 Mar, 2010 [facility] [place] [facility] [address] [id number] [place] [address] 14 Mar, 2010 [facility] [place] [facility] [address] [id number] [place] [address] 13 Mar, 2010 [facility] [place] [facility] [address] [id number] [place] [address] 07 Mar, 2010 [facility] [place] [facility] [address] [id number] [place] [address] 02 Mar, 2010 [facility] [place] [facility] [address] [id number] [place] [address] Mar, [facility] [place] [facility] [address] [id number] [place] [address] 30 Feb, 2010 [facility] [place] [facility] [address] [id number] [place] [address] Feb, [facility] [place] [facility] [address] [id number] [place] [address] Feb, [facility] [place] [facility] [address] [id number] [place] [address] Feb, [facility] [place] [facility] [address] [id number] [place] [address] 16 Feb, 2010 [facility] [place] [facility] [address] [id number] [place] [address] Feb, [facility] [place] [facility] [address] [id number] [place] [address] Feb, [facility] [place] [facility] [address] [id number] [place] [address] Feb, [facility] [place] [facility] [address] [id number] [place] [address] Jan, [facility] [place] [facility] [address] [id number] [place] [address] Jan, [facility] [place] [facility] [address] [id number] [place] [address] Jan, [facility] [place] [facility] [address] [id number], [place] [address] Jan, [facility] [place] [facility] [address] [id number] [place] [address] Mar, [facility] [place] [facility] [address] [id number] [place] [address] Mar, [facility] [place] [facility] [address] [id number] [place] [address] Mar, [facility] [place] [facility] [address] [id number], [place] [address] Mar, [facility] [place] [address] [id number] [address] 14 Mar, 2009 [facility] [place] [address] [id number] [address] Mar, [facility] [place] [id number] [address] Feb, [facility] [place] [id number] [address] Feb, [facility] [place] [id number] [address] Jan, [facility] [place] [address] [id number] [address] Sep, [facility] [place] [address] [id number], [place] [address] May, IMMUNIZATIONS No Known Immunizations SOCIAL HISTORY Never Assessed REASON FOR VISIT EMR-[facility] PLAN OF CARE VITAL SIGNS MEDICATIONS Unknown [...] Surgical History Left ear surgery Hospitalization History [facility]- Spontaneous Pneumothorax Hospitalization History [facility]- Colon resection Hospitalization History [facility] - diarrhea/ couldnt urinate nov 2017
[2018-10-15] MEDS ORDERED: NS IV 1000 ML 1,000 ML IV ONE ×2 (01:01→04:09)
--- OUTSIDE RECORDS SUMMARY | 2018-10-15 01:01 | XMS REPORT ---
Author Author Migration, Doctor Organization [facility] Address Unknown Phone Unavailable Care Team Providers Care Wool Mixer Name Role Phone Migration, Doctor Unavailable Unavailable PROBLEMS Type Condition ICD9-CM Code MTU57-TB Code Onset Dates Condition Status SNOMED Code Problem Constipation K59.00 Active 02278871 Problem Chronic pain G89.29 Active 49910886 Problem Hyperlipidemia E78.5 Active 52731702 Problem Insomnia G47.00 Active 776161153 Problem Chronic kidney disease, stage III (moderate) N18.3 Active 239838163 Problem Anxiety F41.9 Active 66278613 Problem Vision loss H54.7 Active 830509216 Problem HTN (hypertension) I10 Active 07784113 Problem Thoracic back pain, unspecified back pain laterality, unspecified chronicity M54.6 Active 387174013 Problem Vitamin D deficiency E55.9 Active 97180282 Problem Environmental allergies Z91.09 Active 626564270 Problem Primary insomnia F51.01 Active 0412613 ALLERGIES No Information ENCOUNTERS Encounter Location Date Diagnosis [place] [address] [address] August, Anxiety F41.9 and Thoracic back pain, unspecified back pain laterality, unspecified chronicity M54.6 [place] [address] [place] [id number] [place] [address] Jul, [place] [address] [address] Jul, Thoracic back pain, unspecified back pain laterality, unspecified chronicity M54.6 [place] [address] [address] Jun, Anxiety F41.9 and Thoracic back pain, unspecified back pain laterality, unspecified chronicity M54.6 [place] [address] [address] Jun, Anxiety F41.9 and Thoracic back pain, unspecified back pain laterality, unspecified chronicity M54.6 [place] [address] [address] Jun, Thoracic back pain, unspecified back pain laterality, unspecified chronicity M54.6 [place] [address] [address] Jun, Anxiety F41.9 and Thoracic back pain, unspecified back pain laterality, unspecified chronicity M54.6 [place] [address] [address] May, [place] [address] [address] May, [place] [address] [address] May, [place] [address] [address] May, Anxiety F41.9 and Encounter for medication monitoring Z51.81 [place] [address] [address] May, Anxiety F41.9 and Thoracic back pain, unspecified back pain laterality, unspecified chronicity M54.6 [place] [address] [address] Apr, Hyperlipidemia 272.4 [place] [address] [address] Apr, Chronic pain G89.29 ; Anxiety F41.9 ; Cervical radiculopathy M54.12 and Vision loss H54.7 [place] [address] [place] [id number] [place] [address] Apr, [place] [address] [address] Apr, Anxiety F41.9 and Thoracic back pain, unspecified back pain laterality, unspecified chronicity M54.6 [facility] [address] [place] [id number] [place] [address] Mar, [facility] [address] [place] [id number] [place] [address] Mar, Anxiety F41.9 and Thoracic back pain, unspecified back pain laterality, unspecified chronicity M54.6 [facility] [address] [place] [id number] [place] [address] 14 Feb, 2018 Anxiety F41.9 and Thoracic back pain, unspecified back pain laterality, unspecified chronicity M54.6 [place] [address] [place] [id number] [place] [address] 07 Feb, 2018 Thoracic back pain, unspecified back pain laterality, unspecified chronicity M54.6 [place] [address] [place] [id number] [place] [address] 29 Jan, 2018 [facility] [address] [place] [id number] [place] [address] Jan, Anxiety F41.9 and Thoracic back pain, unspecified back pain laterality, unspecified chronicity M54.6 [facility] [address] [place] [id number] [place] [address] 19 Dec, 2017 Diarrhea of presumed infectious origin R19.7 [facility] [address] [place] [id number] [place] [address] 19 Dec, 2017 Diarrhea of presumed infectious origin R19.7 [facility] [address] [place] [id number] [place] [address] 18 Dec, 2017 Thoracic back pain, unspecified back pain laterality, unspecified chronicity M54.6 [facility] [address] [place] [id number] [place] [address] 17 Dec, 2017 [facility] [address] [place] [id number] [place] [address] 17 Dec, 2017 Anxiety F41.9 and Thoracic back pain, unspecified back pain laterality, unspecified chronicity M54.6 [place] [address] [address] Dec, Diarrhea of presumed infectious origin R19.7 [place] [id number] [place] [address] Dec, [place] [address] [place] [id number] [place] [address] Dec, Anxiety F41.9 and Thoracic back pain, unspecified back pain laterality, unspecified chronicity M54.6 [place] [address] [place] [id number] [place] [address] Dec, Anxiety F41.9 and Thoracic back pain, unspecified back pain laterality, unspecified chronicity M54.6 [facility] [address] [place] [id number] Dec, Diarrhea of presumed infectious origin R19.7 ; Anxiety F41.9 ; Thoracic back pain, unspecified back pain laterality, unspecified chronicity M54.6 and HTN (hypertension) I10 [place] [id number] [place] [address] Dec, Anxiety F41.9 [facility] [address] [place] [id number] Dec, Anxiety F41.9 ; Diarrhea of presumed infectious origin R19.7 ; Generalized abdominal pain R10.84 and Localized edema R60.0 [place] [id number] [place] [address] Nov, [facility] [address] [place] [id number] Nov, Anxiety F41.9 ; Urinary retention R33.9 ; Diarrhea of presumed infectious origin R19.7 ; Weakness R53.1 ; Acute kidney failure, unspecified N17.9 ; Chronic kidney disease, stage III (moderate) N18.3 and Thoracic back pain, unspecified back pain laterality, unspecified chronicity M54.6 [place] [address] [place] [id number] [place] [address] Oct, Thoracic back pain, unspecified back pain laterality, unspecified chronicity M54.6 and Anxiety F41.9 [place] [address] [place] [id number] [place] [address] Sep, Thoracic back pain, unspecified back pain laterality, unspecified chronicity M54.6 and Anxiety F41.9 [place] [address] [place] [id number] [place] [address] 04 Sep, 2017 Thoracic back pain, unspecified back pain laterality, unspecified chronicity M54.6 ; Anxiety F41.9 and Encounter for medication monitoring Z51.81 [place] [address] [place] [id number] [place] [address] August, [place] [address] [address] August, Thoracic back pain, unspecified back pain laterality, unspecified chronicity M54.6 and Anxiety F41.9 [place] [address] [place] [id number] [place] [address] August, Hyperlipidemia E78.5 and HTN (hypertension) I10 [place] [address] [place] [id number] [place] [address] August, [place] [address] [place] [id number] [place] [address] August, Medicare welcome exam Z00.00 ; Chronic kidney failure N18.9 ; Anxiety F41.9 ; Chronic pain G89.29 ; Insomnia G47.00 ; Hyperlipidemia E78.5 ; HTN (hypertension) I10 and Thoracic back pain, unspecified back pain laterality, unspecified chronicity M54.6 [place] [address] [place] [id number] [place] [address] Jul, [place] [address] [place] [id number] [place] [address] Jul, [place] [address] [address] Jul, [place] [address] [place] [id number] [place] [address] Jul, Anxiety F41.9 [place] [address] [place] [id number] [place] [address] Jul, Thoracic back pain, unspecified back pain laterality, unspecified chronicity M54.6 and Anxiety F41.9 [place] [address] [place] [id number] [place] [address] Jun, Thoracic back pain, unspecified back pain laterality, unspecified chronicity M54.6 and Anxiety F41.9 [place] [address] [place] [id number] [place] [address] May, Thoracic back pain, unspecified back pain laterality, unspecified chronicity M54.6 and Anxiety F41.9 [place] [address] [place] [id number] [place] [address] Apr, Thoracic back pain, unspecified back pain laterality, unspecified chronicity M54.6 and Anxiety F41.9 [place] [address] [place] [id number] [place] [address] Mar, [place] [address] [place] [id number] [place] [address] Mar, Thoracic back pain, unspecified back pain laterality, unspecified chronicity M54.6 and Anxiety F41.9 [place] [id number] [place] [address] Mar, Thoracic back pain, unspecified back pain laterality, unspecified chronicity M54.6 ; HTN (hypertension) I10 ; Hyperlipidemia E78.5 and Anxiety F41.9 [place] [address] [address] Feb, Thoracic back pain, unspecified back pain laterality, unspecified chronicity M54.6 and Anxiety F41.9 [facility] [address] [place] [id number] [place] [address] Nov, [facility] [address] [place] [id number] [place] [address] Oct, [facility] [address] [place] [id number] [place] [address] Oct, Thoracic back pain, unspecified back pain laterality, unspecified chronicity M54.6 [facility] [address] [place] [id number] [place] [address] Oct, HTN (hypertension) I10 ; Constipation K59.00 ; Hyperlipidemia E78.5 ; Thoracic back pain, unspecified back pain laterality, unspecified chronicity M54.6 ; Chronic pain G89.29 ; Anxiety F41.9 ; Chronic kidney failure N18.9 ; Environmental allergies Z91.09 ; Vitamin D deficiency E55.9 and Primary insomnia F51.01 [facility] [address] [place] [id number] [place] [address] Sep, Anxiety F41.9 [facility] [address] [place] [id number] [place] [address] Sep, [facility] [address] [place] [id number] [place] [address] August, Anxiety F41.9 [facility] [address] [place] [id number] [place] [address] August, [facility] [address] [place] [id number] [place] [address] Jul, Anxiety F41.9 [facility] [address] [place] [id number] [place] [address] Jul, [facility] [address] [place] [id number] [place] [address] Jun, Anxiety F41.9 [facility] [address] [place] [id number] [place] [address] Jun, [facility] [address] [address] May, [facility] [id number] [place] [address] May, [facility] [address] [address] May, [facility] [address] [place] [id number] [place] [address] Apr, [facility] [id number] [place] [address] Apr, [facility] [address] [place] [id number] [place] [address] Apr, Anxiety F41.9 [facility] [address] [place] [id number] [place] [address] Apr, Anxiety F41.9 [facility] [id number] [place] [address] Apr, [facility] [address] [place] [id number] [place] [address] Mar, HTN (hypertension) I10 ; Tremor R25.1 ; Hypercholesterolemia E78.0 ; Constipation K59.00 ; Chronic pain G89.29 ; Hyperlipidemia E78.5 ; Insomnia G47.00 ; Anxiety F41.9 and Thoracic back pain, unspecified back pain laterality, unspecified chronicity M54.6 [facility] [address] [place] [id number] [address] Mar, Tremor R25.1 ; HTN (hypertension) I10 ; Hypercholesterolemia E78.0 ; Constipation K59.00 ; Chronic pain G89.29 ; Hyperlipidemia E78.5 ; Insomnia G47.00 ; Anxiety F41.9 and Thoracic back pain, unspecified back pain laterality, unspecified chronicity M54.6 [facility] [address] [address] 07 Mar, 2016 [facility] [address] [id number] [place] [address] 02 Mar, 2016 [facility] [address] [id number] [place] [address] 09 Feb, 2016 [facility] [address] [id number] [place] [address] 13 Jan, 2016 [facility] [address] [id number] [address] Jan, [facility] [address] [id number] [place] [address] 15 Dec, 2015 [facility] [id number] [place] [address], [place] [address] Nov, [facility] [address] [id number] [place] [address] Nov, [facility] [address] [id number] [address] Oct, Anxiety F41.9 [facility] [address] [id number] [address] Oct, Chronic pain G89.29 [facility] [address] [id number] [address] 24 Sep, 2015 [facility] [address] [id number] [address] Sep, [facility] [address] [id number] [address] Sep, [facility] [address] [id number] [place] [address] 17 Sep, 2015 [facility] [address] [id number] [address] 16 Sep, 2015 Chronic pain syndrome G89.4 [facility] [address] [id number] [address] Sep, HTN (hypertension) I10 ; Chronic pain G89.29 ; Hypercholesterolemia E78.0 ; Chronic kidney failure N18.9 ; Constipation, unspecified constipation type K59.00 ; Anxiety F41.9 and Thoracic back pain, unspecified back pain laterality, unspecified chronicity M54.6 [facility] [address] [place] [id number] [place] [address] August, Chronic pain syndrome G89.4 [facility] [address] [address] August, Chronic pain syndrome G89.4 [place] [address] [address] Jul, Anxiety disorder, unspecified F41.9 and Chronic pain syndrome G89.4 [facility] [address] [address] Jul, Insomnia, unspecified G47.00 and Chronic pain syndrome G89.4 [facility] [address] [address] Jul, Allergic rhinitis J30.9 [facility] [address] [address] Jul, Constipation, unspecified K59.00 [facility] [address] [place] [id number] [place] [address] Jul, [facility] [address] [place] [id number] [place] [address] Jun, [facility] [address] [place] [id number] [place] [address] Jun, [facility] [address] [place] [id number] [place] [address] Jun, [facility] [address] [place] [id number] [place] [address] Jun, [facility] [address] [place] [address] Jun, [facility] [address] [place] [id number] [place] [address] Jun, [facility] [address] [place] [id number] [place] [address] May, [facility] [address] [place] [id number] [place] [address] May, [facility] [address] [place] [id number] [place] [address] May, Anxiety F41.9 ; Insomnia G47.00 ; Hyperlipidemia E78.5 ; Chronic pain G89.29 ; HTN (hypertension) I10 ; Environmental allergies V15.09 and Constipation 564.00 [facility] [address] [place] [id number] [place] [address] Apr, [facility] [address] [place] [id number] [place] [address] Apr, [facility] [address] [place] [id number] [place] [address] Apr, [facility] [address] [place] [id number] [place] [address] Mar, [facility] [address] [place] [id number] [place] [address] Mar, [facility] [address] [place] [id number] [place] [address] Mar, [facility] [address] [place] [id number] [place] [address] Feb, [facility] [address] [place] [id number] [place] [address] Feb, [facility] [address] [place] [id number] [place] [address] Feb, [facility] [address] [place] [id number] [place] [address] Jan, HTN (hypertension) I10 ; Constipation K59.00 ; Chronic pain G89.29 ; Hyperlipidemia E78.5 ; Hypercholesterolemia E78.0 ; Insomnia G47.00 and Anxiety F41.9 [facility] [address] [place] [id number] [place] [address] Jan, [address] [address] Dec, [place] [address] [address] Nov, [address] [address] Oct, Chronic kidney disease, unspecified 585.9 ; Chronic pain syndrome 338.4 ; Hyperlipidemia 272.4 and Essential hypertension 401.[address] [address] Oct, Chronic kidney disease 585.9 [place] [id number] [place] [address] Oct, [place] [id number] [place] [address] Oct, Chronic kidney disease, unspecified 585.9 ; Hypercalcemia 275.42 ; Hyperlipidemia 272.4 ; Essential hypertension 401.9 ; Chronic pain syndrome 338.4 ; Insomnia 780.52 ; Constipation 564.00 ; Environmental allergies V15.09 and Anxiety 300.00 [place] [id number] [place] [address] Oct, Chronic kidney disease 585.[address] [address] Oct, [place] [id number] [place] [address] Oct, Chronic kidney disease 585.9 and Hyperlipidemia 272.[address] [place] [address] 10 Oct, 2014 [facility] [address] [id number] [place] [address] 10 Oct, 2014 [facility] [place] [facility] [address] [id number] [place] [address] 18 Sep, 2014 [facility] [place] [facility] [address] [id number] [place] [address] 15 Sep, 2014 [facility] [place] [facility] [address] [id number] [place] [address] 15 Sep, 2014 Chronic kidney disease 585.9 and Hyperlipidemia 272.4 [facility] [place] [facility] [id number] [place] [address], [place] [address] Sep, [facility] [place] [facility] [address] [place] [id number] [address] August, [facility] [place] [facility] [address] [id number] [place] [address] August, [facility] [place] [facility] [address] [id number] [place] [address] 14 Jul, 2014 [facility] [place] [facility] [address] [id number] [place] [address] Jul, [facility] [place] [facility] [address] [id number] [place] [address] 20 Jun, 2014 [facility] [place] [facility] [address] [id number] [place] [address] 20 Jun, 2014 [facility] [place] [facility] [address] [id number] [place] [address] 16 Jun, 2014 [facility] [place] [facility] [address] [id number] [place] [address] 16 Jun, 2014 [facility] [place] [facility] [address] [id number] [place] [address] 09 Jun, 2014 [facility] [place] [facility] [address] [id number] [place] [address] Jun, [facility] [place] [facility] [address] [id number] [place] [address] Jun, [facility] [place] [facility] [address] [id number] [place] [address] Jun, [facility] [place] [facility] [address] [id number] [place] [address] May, [facility] [place] [facility] [address] [id number] [place] [address] May, [facility] [place] [facility] [address] [id number] [place] [address] May, [facility] [place] [facility] [address] [id number] [place] [address] May, [facility] [place] [facility] [address] [id number] [place] [address] Apr, [facility] [place] [facility] [address] [id number] [place] [address] Apr, [facility] [place] [facility] [address] [id number] [place] [address] Apr, [facility] [place] [facility] [address] [id number] [place] [address] Apr, [facility] [place] [facility] [address] [id number] [place] [address] Apr, [facility] [place] [facility] [address] [id number] [place] [address] Apr, [facility] [place] [facility] [address] [id number] [place] [address] Apr, [facility] [place] [facility] [address] [id number] [place] [address] Apr, [facility] [place] [facility] [address] [id number] [place] [address] Apr, [facility] [place] [facility] [address] [id number] [place] [address] 16 Apr, 2014 [facility] [place] [facility] [address] [id number] [place] [address] Apr, [facility] [place] [facility] [address] [id number] [place] [address] Mar, [facility] [place] [facility] [address] [id number] [place] [address] Mar, [facility] [place] [facility] [address] [id number] [place] [address] Feb, [facility] [place] [facility] [address] [id number] [place] [address] Feb, [facility] [place] [facility] [address] [id number] [place] [address] Feb, [facility] [place] [facility] [address] [id number] [place] [address] Feb, [facility] [place] [facility] [address] [id number] [place] [address] Feb, [facility] [place] [facility] [address] [id number] [place] [address] Feb, [facility] [place] [facility] [address] [id number] [place] [address] Feb, [facility] [place] [facility] [address] [id number] [place] [address] Feb, [facility] [place] [facility] [address] [id number] [place] [address] Feb, [facility] [place] [facility] [address] [id number] [place] [address] Feb, [facility] [place] [facility] [address] [id number] [place] [address] Jan, [facility] [place] [facility] [address] [id number] [place] [address] Jan, [facility] [place] [facility] [address] [id number] [place] [address] Jan, [facility] [place] [facility] [address] [id number] [place] [address] Jan, [facility] [place] [facility] [address] [id number] [place] [address] Jan, [facility] [place] [facility] [address] [id number] [place] [address] Jan, [facility] [place] [facility] [address] [id number] [place] [address] Jan, [facility] [place] [facility] [address] [id number] [place] [address] Jan, [facility] [place] [facility] [address] [id number] [place] [address] 16 Jan, 2014 [facility] [place] [facility] [address] [id number] [place] [address] Jan, [facility] [place] [facility] [address] [address] [id number] [place] [address] 06 Jan, 2014 [facility] [place] [facility] [address] [id number] [place] [address] 26 Dec, 2013 [facility] [place] [facility] [address] [id number] [place] [address] 26 Dec, 2013 [facility] [place] [facility] [address] [id number] [place] [address] 19 Dec, 2013 [facility] [place] [facility] [address] [id number] [place] [address] 19 Dec, 2013 [facility] [place] [facility] [address] [id number] [address] 18 Dec, 2013 [facility] [place] [facility] [address] [id number] [place] [address] 18 Dec, 2013 [facility] [place] [facility] [address] [id number] [place] [address] Dec, [facility] [place] [facility] [address] [id number] [place] [address] Dec, [facility] [place] [facility] [address] [id number] [place] [address] Nov, [facility] [place] [facility] [address] [id number] [place] [address] Nov, [facility] [place] [facility] [address] [id number] [place] [address] Nov, [facility] [place] [facility] [address] [id number] [place] [address] Nov, [facility] [place] [facility] [address] [id number] [place] [address] Nov, [facility] [place] [facility] [address] [id number] [place] [address] Nov, [facility] [place] [facility] [address] [id number] [place] [address] Nov, [facility] [place] [facility] [address] [id number] [place] [address] Nov, [facility] [place] [facility] [address] [id number] [place] [address] Oct, [facility] [place] [facility] [address] [id number] [place] [address] Oct, [facility] [place] [facility] [address] [id number] [place] [address] Oct, [facility] [place] [facility] [address] [id number] [place] [address] Oct, [facility] [place] [facility] [address] [id number] [place] [address] Sep, [facility] [place] [facility] [address] [id number] [place] [address] Sep, [facility] [place] [facility] [address] [id number] [place] [address] Sep, [facility] [place] [facility] [address] [id number] [place] [address] Sep, [facility] [place] [facility] [address] [id number] [place] [address] Sep, [facility] [place] [facility] [address] [id number] [place] [address] Sep, [facility] [place] [facility] [address] [id number] [place] [address] Sep, [facility] [place] [facility] [address] [id number] [place] [address] Sep, [facility] [place] [facility] [address] [id number] [place] [address] August, [facility] [place] [facility] [address] [id number] [place] [address] August, [facility] [place] [facility] [address] [id number] [place] [address] August, [facility] [place] [facility] [address] [id number] [place] [address] August, [facility] [place] [facility] [address] [id number] [place] [address] August, [facility] [place] [facility] [address] [id number] [place] [address] August, [facility] [place] [facility] [address] [id number] [place] [address] August, [facility] [place] [facility] [address] [id number] [place] [address] August, [facility] [place] [facility] [address] [id number] [place] [address] August, [facility] [place] [facility] [address] [id number] [place] [address] August, [facility] [place] [facility] [address] [id number] [place] [address] Jul, [facility] [place] [facility] [address] [id number] [place] [address] Jul, [facility] [place] [facility] [address] [id number] [place] [address] Jul, [facility] [place] [facility] [address] [id number] [place] [address] Jul, [facility] [place] [facility] [address] [id number] [place] [address] Jul, [facility] [place] [facility] [address] [id number] [place] [address] Jul, [facility] [place] [facility] [address] [id number] [place] [address] Jul, [facility] [place] [facility] [address] [id number] [place] [address] Jul, [facility] [place] [facility] [address] [id number] [place] [address] Jun, [facility] [place] [facility] [address] [id number] [place] [address] Jun, [facility] [place] [facility] [address] [id number] [place] [address] Jun, [facility] [place] [facility] [address] [id number] [place] [address] Jun, [facility] [place] [facility] [address] [id number] [place] [address] Jun, [facility] [place] [facility] [address] [id number] [place] [address] Jun, [facility] [place] [facility] [address] [id number] [place] [address] May, [facility] [place] [facility] [address] [id number] [place] [address] May, [facility] [place] [facility] [address] [id number] [place] [address] May, [facility] [place] [facility] [address] [id number] [place] [address] May, [facility] [place] [facility] [address] [id number] [place] [address] May, [facility] [place] [facility] [address] [id number] [place] [address] May, [facility] [place] [facility] [address] [id number] [place] [address] May, [facility] [place] [facility] [address] [id number] [place] [address] Apr, [facility] [place] [facility] [address] [id number] [place] [address] Apr, [facility] [place] [facility] [address] [id number] [place] [address] Apr, [facility] [place] [facility] [address] [id number] [place] [address] Apr, [facility] [place] [facility] [address] [id number] [place] [address] Apr, [facility] [place] [facility] [address] [id number] [place] [address] Apr, [facility] [place] [facility] [address] [id number] [place] [address] Mar, [facility] [place] [facility] [address] [id number] [place] [address] Mar, [facility] [place] [facility] [address] [id number] [place] [address] Mar, [facility] [place] [facility] [address] [id number] [place] [address] Mar, [facility] [address] [id number] [place] [address] Mar, [facility] [place] [facility] [address] [id number] [place] [address] Mar, [facility] [place] [facility] [address] [facility] [facility] [id number] [place] [address] 16 Mar, 2013 [facility] [place] [facility] [address] [id number] [place] [address] 16 Mar, 2013 [facility] [place] [facility] [address] [id number] [place] [address] Mar, [facility] [place] [facility] [address] [id number] [place] [address] Mar, [facility] [place] [facility] [address] [id number] [place] [address] Feb, [facility] [place] [facility] [address] [id number] [place] [address] Feb, [facility] [place] [facility] [address] [id number] [place] [address] Feb, [facility] [place] [facility] [address] [id number] [place] [address] Feb, [facility] [place] [facility] [address] [id number] [place] [address] 14 Feb, 2013 [facility] [place] [facility] [address] [id number] [place] [address] 14 Feb, 2013 [facility] [place] [facility] [address] [id number] [place] [address] Feb, [facility] [place] [facility] [address] [id number] [place] [address] Feb, [facility] [place] [facility] [address] [id number] [place] [address] 08 Feb, 2013 [facility] [place] [facility] [address] [id number] [place] [address] Feb, [facility] [place] [facility] [address] [id number] [place] [address] Jan, [facility] [place] [facility] [address] [id number] [place] [address] Jan, [facility] [place] [facility] [address] [id number] [place] [address] Jan, [facility] [place] [facility] [address] [id number] [place] [address] Jan, [facility] [place] [facility] [address] [id number] [place] [address] Jan, [facility] [place] [facility] [address] [id number] [place] [address] Jan, [facility] [place] [facility] [address] [id number] [place] [address] Jan, [facility] [place] [facility] [address] [id number] [place] [address] Jan, [facility] [place] [facility] [address] [id number] [place] [address] Jan, [facility] [place] [facility] [address] [id number] [place] [address] Dec, [facility] [place] [facility] [address] [id number] [place] [address] Dec, [facility] [place] [facility] [address] [id number] [place] [address] 21 Dec, 2012 [facility] [place] [facility] [address] [id number] [place] [address] 13 Dec, 2012 [facility] [place] [facility] [address] [id number] [place] [address] Nov, [facility] [place] [facility] [address] [id number] [place] [address] Nov, [facility] [place] [facility] [address] [id number] [place] [address] Nov, [facility] [address] [id number] [place] [address] Nov, [facility] [address] [id number] [place] [address] Nov, [facility] [address] [id number] [place] [address] Nov, [facility] [address] [id number] [place] [address] Oct, [facility] [address] [id number] [place] [address] Oct, [facility] [address] [id number] [place] [address] Oct, [facility] [address] [id number] [place] [address] Oct, [facility] [address] [id number] [place] [address] Sep, [facility] [address] [id number] [place] [address] Sep, [facility] [address] [id number] [place] [address] Sep, [facility] [place] [facility] [address] [id number] [place] [address] Sep, [facility] [place] [facility] [address] [id number] [place] [address] Sep, [facility] [place] [facility] [address] [id number] [place] [address] August, [facility] [place] [facility] [address] [id number] [place] [address] August, [facility] [place] [facility] [address] [id number] [place] [address] Jul, [facility] [address] [id number] [place] [address] Jul, [facility] [address] [id number] [place] [address] 15 Jul, 2012 [facility] [address] [id number] [place] [address] Jul, [facility] [address] [id number] [place] [address] Jul, [facility] [address] [id number] [place] [address] Jun, [facility] [address] [id number] [place] [address] Jun, [facility] [address] [id number] [place] [address] Jun, [facility] [address] [id number] [place] [address] Jun, [facility] [address] [id number] [place] [address] Jun, [facility] [address] [id number] [place] [address] 28 May, 2012 [facility] [address] [id number] [place] [address] May, [facility] [place] [facility] [address] [id number] [place] [address] May, [facility] [place] [facility] [address] [id number] [place] [address] 21 May, 2012 [facility] [place] [facility] [address] [id number] [place] [address] 20 May, 2012 [facility] [place] [facility] [address] [id number] [place] [address] 14 May, 2012 [facility] [place] [facility] [address] [id number] [place] [address] May, [facility] [address] [id number] [place] [address] May, [facility] [address] [id number] [place] [address] May, [facility] [address] [id number] [place] [address] Apr, [facility] [address] [id number] [place] [address] Apr, [facility] [address] [id number] [place] [address] Apr, [facility] [address] [id number] [place] [address] Apr, [facility] [address] [id number] [place] [address] Apr, [facility] [address] [id number] [place] [address] Mar, [facility] [address] [id number] [place] [address] Mar, [facility] [address] [id number] [place] [address] Mar, [facility] [address] [id number] [place] [address] Mar, [facility] [address] [id number] [place] [address] Mar, [facility] [place] [facility] [address] [id number] [place] [address] Mar, [facility] [address] [id number] [place] [address] 17 Mar, 2012 [facility] [address] [id number] [address] 17 Mar, 2012 [facility] [place] [facility] [address] [id number] [place] [address] Mar, [facility] [place] [facility] [address] [id number] [place] [address] Mar, [facility] [place] [facility] [address] [id number] [place] [address] 30 Feb, 2012 [facility] [place] [facility] [address] [id number] [place] [address] 30 Feb, 2012 [facility] [place] [facility] [address] [id number] [place] [address] Feb, [facility] [place] [facility] [address] [id number] [place] [address] Feb, [facility] [place] [facility] [address] [id number] [place] [address] Feb, [facility] [place] [facility] [address] [id number] [place] [address] Feb, [facility] [place] [facility] [address] [id number] [place] [address] Feb, [facility] [place] [facility] [address] [id number] [place] [address] Feb, [facility] [place] [facility] [address] [id number] [place] [address] 16 Feb, 2012 [facility] [place] [facility] [address] [id number] [place] [address] 16 Feb, 2012 [facility] [place] [facility] [address] [id number] [place] [address] 13 Feb, 2012 [facility] [place] [facility] [address] [id number] [place] [address] 13 Feb, 2012 [facility] [place] [facility] [address] [id number] [place] [address] 12 Feb, 2012 [facility] [place] [facility] [address] [id number] [place] [address] Feb, [facility] [place] [facility] [address] [id number] [place] [address] Feb, [facility] [place] [facility] [address] [id number] [place] [address] Feb, [facility] [place] [facility] [address] [id number] [place] [address] Feb, [facility] [place] [facility] [address] [id number] [place] [address] Feb, [facility] [place] [facility] [address] [id number] [place] [address] Jan, [facility] [place] [facility] [address] [id number] [place] [address] Jan, [facility] [place] [facility] [address] [id number] [place] [address] Jan, [facility] [place] [facility] [address] [id number] [place] [address] Jan, [facility] [place] [facility] [address] [id number] [place] [address] Jan, [facility] [place] [facility] [address] [id number] [place] [address] Jan, [facility] [place] [facility] [address] [id number] [place] [address] Jan, [facility] [place] [facility] [address] [id number] [place] [address] Jan, [facility] [place] [facility] [address] [id number] [place] [address] Jan, [facility] [place] [facility] [address] [id number] [place] [address] Jan, [facility] [place] [facility] [address] [id number] [place] [address] Dec, [facility] [place] [facility] [address] [id number] [place] [address] Dec, [facility] [place] [facility] [address] [id number] [place] [address] Dec, [facility] [place] [facility] [address] [id number] [place] [address] Dec, [facility] [place] [facility] [address] [id number] [place] [address] Nov, [facility] [place] [facility] [address] [id number] [place] [address] Nov, [facility] [place] [facility] [address] [id number] [place] [address] Nov, [facility] [place] [facility] [address] [id number] [place] [address] Nov, [facility] [place] [facility] [address] [id number] [place] [address] Nov, [facility] [place] [facility] [address] [id number] [place] [address] Nov, [facility] [place] [facility] [address] [id number] [place] [address] Oct, [facility] [place] [facility] [address] [id number] [place] [address] Oct, [facility] [place] [facility] [address] [id number] [place] [address] Oct, [facility] [place] [facility] [address] [id number] [place] [address] Oct, [facility] [place] [facility] [address] [id number] [place] [address] Oct, [facility] [place] [facility] [address] [id number] [place] [address] Sep, [facility] [place] [facility] [address] [id number] [place] [address] Sep, [facility] [place] [facility] [address] [id number] [place] [address] Sep, [facility] [place] [facility] [address] [id number] [place] [address] Sep, [facility] [place] [facility] [address] [id number] [place] [address] Sep, [facility] [place] [facility] [address] [id number] [place] [address] August, [facility] [place] [facility] [address] [id number] [place] [address] August, [facility] [place] [facility] [address] [id number] [place] [address] August, [facility] [address] [id number] [place] [address] August, [facility] [place] [facility] [address] [id number] [place] [address] 27 Jul, 2011 [facility] [place] [facility] [address] [id number] [place] [address] 24 Jul, 2011 [facility] [place] [facility] [address] [id number] [place] [address] Jul, [facility] [place] [facility] [address] [id number] [place] [address] 18 Jul, 2011 [facility] [place] [facility] [address] [id number] [place] [address] 18 Jul, 2011 [facility] [place] [facility] [address] [id number] [place] [address] 12 Jul, 2011 [facility] [place] [facility] [address] [id number] [place] [address] 11 Jul, 2011 [facility] [place] [facility] [address] [id number] [place] [address] 10 Jul, 2011 [facility] [place] [facility] [address] [id number] [place] [address] Jul, [facility] [place] [facility] [address] [id number] [place] [address] Jul, [facility] [place] [facility] [address] [id number] [place] [address] Jul, [facility] [place] [facility] [address] [id number] [place] [address] Jul, [facility] [place] [facility] [address] [id number] [place] [address] Jul, [facility] [place] [facility] [address] [id number] [place] [address] Jul, [facility] [place] [facility] [address] [id number] [place] [address] Jun, [facility] [place] [facility] [address] [id number] [place] [address] Jun, [facility] [place] [facility] [address] [id number] [place] [address] Jun, [facility] [place] [facility] [address] [id number] [place] [address] Jun, [facility] [place] [facility] [address] [id number] [place] [address] May, [facility] [place] [facility] [address] [id number] [place] [address] May, [facility] [place] [facility] [address] [id number] [place] [address] May, [facility] [place] [facility] [address] [id number] [place] [address] Apr, [facility] [place] [facility] [address] [id number] [place] [address] Apr, [facility] [place] [facility] [address] [id number] [place] [address] 13 Apr, 2011 [facility] [place] [facility] [address] [id number] [place] [address] Apr, [facility] [place] [facility] [address] [id number] [place] [address] Apr, [facility] [place] [facility] [address] [id number] [place] [address] Mar, [facility] [place] [facility] [address] [id number] [place] [address] Mar, [facility] [place] [facility] [address] [id number] [place] [address] Mar, [facility] [place] [facility] [address] [id number] [place] [address] Mar, [facility] [place] [facility] [address] [id number] [place] [address] Mar, [facility] [place] [facility] [address] [id number] [place] [address] Mar, [facility] [place] [facility] [address] [id number] [place] [address] Mar, [facility] [place] [facility] [address] [id number] [place] [address] 29 Feb, 2011 [facility] [place] [facility] [address] [id number] [address] Feb, [facility] [place] [facility] [address] [id number] [place] [address] Feb, [facility] [place] [facility] [address] [id number] [place] [address] Feb, [facility] [place] [facility] [address] [id number] [place] [address] 16 Feb, 2011 [facility] [place] [facility] [address] [id number] [place] [address] 14 Feb, 2011 [facility] [place] [facility] [address] [id number] [place] [address] 10 Feb, 2011 [facility] [address] [id number] [place] [address] 31 Jan, 2011 [facility] [place] [facility] [address] [id number] [place] [address] Jan, [facility] [address] [id number] [place] [address] 31 Jan, 2011 [facility] [place] [facility] [address] [id number] [place] [address] 18 Jan, 2011 [facility] [address] [id number] [place] [address] Jan, [facility] [address] [id number] [place] [address] 17 Jan, 2011 [facility] [address] [id number] [place] [address] Jun, [facility] [address] [id number] [place] [address] 30 Mar, 2010 [facility] [place] [facility] [address] [id number] [place] [address] 20 Mar, 2010 [facility] [address] [id number] [place] [address] 14 Mar, 2010 [facility] [place] [facility] [address] [id number] [place] [address] 14 Mar, 2010 [facility] [place] [facility] [address] [id number] [place] [address] 13 Mar, 2010 [facility] [place] [facility] [address] [id number] [place] [address] 07 Mar, 2010 [facility] [place] [facility] [address] [id number] [place] [address] 02 Mar, 2010 [facility] [place] [facility] [address] [id number] [place] [address] Mar, [facility] [place] [facility] [address] [id number] [place] [address] 30 Feb, 2010 [facility] [place] [facility] [address] [id number] [place] [address] Feb, [facility] [place] [facility] [address] [id number] [place] [address] Feb, [facility] [place] [facility] [address] [id number] [place] [address] Feb, [facility] [place] [facility] [address] [id number] [place] [address] 16 Feb, 2010 [facility] [place] [facility] [address] [id number] [place] [address] Feb, [facility] [place] [facility] [address] [id number] [place] [address] Feb, [facility] [place] [facility] [address] [id number] [place] [address] Feb, [facility] [place] [facility] [address] [id number] [place] [address] Jan, [facility] [place] [facility] [address] [id number] [place] [address] Jan, [facility] [place] [facility] [address] [id number] [place] [address] Jan, [facility] [place] [facility] [address] [id number] [address] Jan, [facility] [place] [facility] [address] [id number] [place] [address] Mar, [facility] [place] [facility] [address] [id number] [place] [address] Mar, [facility] [place] [facility] [address] [id number] [place] [address] Mar, [facility] [place] [facility] [address] [id number] [place] [address] Mar, [facility] [id number] [address] 14 Mar, 2009 [facility] [id number] [address] Mar, [facility] [id number] [address] Feb, [facility] [id number] [address] Feb, [facility] [id number] [address] Jan, [facility] [id number] [address] Sep, [facility] [id number] [address] May, IMMUNIZATIONS No Known Immunizations SOCIAL HISTORY Never Assessed REASON FOR VISIT EMR-[facility] [place] OF CARE VITAL SIGNS MEDICATIONS Unknown [...] Surgical History Left ear surgery Hospitalization History [facility]- Spontaneous Pneumothorax Hospitalization History [facility]- Colon resection Hospitalization History via [facility] - diarrhea/ couldnt urinate nov 2017
--- OUTSIDE RECORDS SUMMARY | 2018-10-15 01:02 | XMS REPORT ---
Author Author Migration, Doctor Organization [facility] Address Unknown Phone Unavailable Care Team Providers Care Process Safety Management Engineer Name Role Phone Migration, Doctor Unavailable Unavailable PROBLEMS Type Condition ICD9-CM Code OUC23-LC Code Onset Dates Condition Status SNOMED Code Problem Constipation K59.00 Active 54843004 Problem Chronic pain G89.29 Active 97165543 Problem Hyperlipidemia E78.5 Active 62685537 Problem Insomnia G47.00 Active 005478457 Problem Chronic kidney disease, stage III (moderate) N18.3 Active 861257652 Problem Anxiety F41.9 Active 89698312 Problem Vision loss H54.7 Active 301726377 Problem HTN (hypertension) I10 Active 46367782 Problem Thoracic back pain, unspecified back pain laterality, unspecified chronicity M54.6 Active 099776330 Problem Vitamin D deficiency E55.9 Active 56751026 Problem Environmental allergies Z91.09 Active 557432230 Problem Primary insomnia F51.01 Active 8085082 ALLERGIES No Information ENCOUNTERS Encounter Location Date Diagnosis [place] [address] [address] Jul, [place] [address] [address] Jul, Thoracic back pain, unspecified back pain laterality, unspecified chronicity M54.6 [place] [address] [place] [id number] [place] [address] Jun, Anxiety F41.9 and Thoracic back pain, unspecified back pain laterality, unspecified chronicity M54.6 [place] [address] [address] Jun, Anxiety F41.9 and Thoracic back pain, unspecified back pain laterality, unspecified chronicity M54.6 [place] [address] [address] Jun, Thoracic back pain, unspecified back pain laterality, unspecified chronicity M54.6 [place] [address] [place] [id number] [place] [address] Jun, Anxiety F41.9 and Thoracic back pain, unspecified back pain laterality, unspecified chronicity M54.6 [place] [address] [address] May, [place] [address] [address] May, [place] [address] [address] May, [place] [address] [address] May, Anxiety F41.9 and Encounter for medication monitoring Z51.81 [place] [address] [address] May, Anxiety F41.9 and Thoracic back pain, unspecified back pain laterality, unspecified chronicity M54.6 [place] [address] [address] Apr, Hyperlipidemia 272.4 [place] [address] [place] [id number] [place] [address] Apr, Chronic pain G89.29 ; Anxiety F41.9 ; Cervical radiculopathy M54.12 and Vision loss H54.7 [place] [address] [place] [id number] [place] [address] Apr, [place] [address] [address] Apr, Anxiety F41.9 and Thoracic back pain, unspecified back pain laterality, unspecified chronicity M54.6 [place] [address] [place] [id number] [place] [address] Mar, [facility] [id number] [place] [address] 10 Mar, 2018 Anxiety F41.9 and Thoracic back pain, unspecified back pain laterality, unspecified chronicity M54.6 [place] [address] [place] [id number] [place] [address] 14 Feb, 2018 Anxiety F41.9 and Thoracic back pain, unspecified back pain laterality, unspecified chronicity M54.6 [place] [address] [place] [id number] [place] [address] 07 Feb, 2018 Thoracic back pain, unspecified back pain laterality, unspecified chronicity M54.6 [place] [address] [place] [id number] [place] [address] 29 Jan, 2018 [place] [address] [place] [id number] [place] [address] 16 Jan, 2018 Anxiety F41.9 and Thoracic back pain, unspecified back pain laterality, unspecified chronicity M54.6 [place] [address] [place] [id number] [place] [address] 19 Dec, 2017 Diarrhea of presumed infectious origin R19.7 [place] [address] [place] [id number] [place] [address] 19 Dec, 2017 Diarrhea of presumed infectious origin R19.7 [place] [address] [place] [id number] [place] [address] 18 Dec, 2017 Thoracic back pain, unspecified back pain laterality, unspecified chronicity M54.6 [place] [address] [place] [id number] [place] [address] 17 Dec, 2017 [place] [address] [place] [id number] [place] [address] 17 Dec, 2017 Anxiety F41.9 and Thoracic back pain, unspecified back pain laterality, unspecified chronicity M54.6 [place] [address] [place] [id number] [place] [address] Dec, Diarrhea of presumed infectious origin R19.7 [place] [address] [address] Dec, [place] [id number] [place] [address] Dec, Anxiety F41.9 and Thoracic back pain, unspecified back pain laterality, unspecified chronicity M54.6 [place] [id number] [place] [address] Dec, Anxiety F41.9 and Thoracic back pain, unspecified back pain laterality, unspecified chronicity M54.6 [facility] [employer] [address] [place] [id number] Dec, Diarrhea of presumed infectious origin R19.7 ; Anxiety F41.9 ; Thoracic back pain, unspecified back pain laterality, unspecified chronicity M54.6 and HTN (hypertension) I10 [place] [id number] [place] [address] Dec, Anxiety F41.9 [facility] [employer] [address] [place] [id number] Dec, Anxiety F41.9 ; Diarrhea of presumed infectious origin R19.7 ; Generalized abdominal pain R10.84 and Localized edema R60.0 [address] [place] [address] Nov, [facility] [employer] [address] [place] [id number] Nov, Anxiety F41.9 ; Urinary retention R33.9 ; Diarrhea of presumed infectious origin R19.7 ; Weakness R53.1 ; Acute kidney failure, unspecified N17.9 ; Chronic kidney disease, stage III (moderate) N18.3 and Thoracic back pain, unspecified back pain laterality, unspecified chronicity M54.6 [address] [address] Oct, Thoracic back pain, unspecified back pain laterality, unspecified chronicity M54.6 and Anxiety F41.9 [place] [address], [place] [address] Sep, Thoracic back pain, unspecified back pain laterality, unspecified chronicity M54.6 and Anxiety F41.9 [facility] [address] [place] [id number] [place] [address] 04 Sep, 2017 Thoracic back pain, unspecified back pain laterality, unspecified chronicity M54.6 ; Anxiety F41.9 and Encounter for medication monitoring Z51.81 [place] [address] [place] [id number] [place] [address] August, [place] [address] [address] August, Thoracic back pain, unspecified back pain laterality, unspecified chronicity M54.6 and Anxiety F41.9 [place] [address] [place] [id number] [place] [address] August, Hyperlipidemia E78.5 and HTN (hypertension) I10 [place] [address] [place] [id number] [place] [address] August, [place] [address] [place] [id number] [place] [address] August, Medicare welcome exam Z00.00 ; Chronic kidney failure N18.9 ; Anxiety F41.9 ; Chronic pain G89.29 ; Insomnia G47.00 ; Hyperlipidemia E78.5 ; HTN (hypertension) I10 and Thoracic back pain, unspecified back pain laterality, unspecified chronicity M54.6 [place] [address] [place] [address] Jul, [place] [address] [place] [id number] [place] [address] Jul, [place] [address] [place] [address] Jul, [place] [address] [place] [id number] [place] [address] Jul, Anxiety F41.9 [place] [address] [place] [id number] [place] [address] Jul, Thoracic back pain, unspecified back pain laterality, unspecified chronicity M54.6 and Anxiety F41.9 [place] [address] [place] [id number] [place] [address] Jun, Thoracic back pain, unspecified back pain laterality, unspecified chronicity M54.6 and Anxiety F41.9 [place] [address] [place] [id number] [place] [address] May, Thoracic back pain, unspecified back pain laterality, unspecified chronicity M54.6 and Anxiety F41.9 [place] [address] [place] [id number] [place] [address] Apr, Thoracic back pain, unspecified back pain laterality, unspecified chronicity M54.6 and Anxiety F41.9 [place] [address] [place] [id number] [place] [address] Mar, [place] [address] [address] Mar, Thoracic back pain, unspecified back pain laterality, unspecified chronicity M54.6 and Anxiety F41.9 [place] [address] [place] [id number] [place] [address] Mar, Thoracic back pain, unspecified back pain laterality, unspecified chronicity M54.6 ; HTN (hypertension) I10 ; Hyperlipidemia E78.5 and Anxiety F41.9 [place] [address] [place] [id number] [place] [address] Feb, Thoracic back pain, unspecified back pain laterality, unspecified chronicity M54.6 and Anxiety F41.9 [place] [address] [place] [id number] [place] [address] Nov, [place] [address] [address] Oct, [facility] [address] [place] [id number] [place] [address] Oct, Thoracic back pain, unspecified back pain laterality, unspecified chronicity M54.6 [facility] [address] [place] [id number] [place] [address] Oct, HTN (hypertension) I10 ; Constipation K59.00 ; Hyperlipidemia E78.5 ; Thoracic back pain, unspecified back pain laterality, unspecified chronicity M54.6 ; Chronic pain G89.29 ; Anxiety F41.9 ; Chronic kidney failure N18.9 ; Environmental allergies Z91.09 ; Vitamin D deficiency E55.9 and Primary insomnia F51.01 [facility] [address] [place] [id number] [place] [address] Sep, Anxiety F41.9 [facility] [address] [place] [id number] [place] [address] Sep, [facility] [address] [place] [id number] [place] [address] August, Anxiety F41.9 [facility] [address] [place] [id number] [place] [address] August, [facility] [address] [place] [id number] [place] [address] Jul, Anxiety F41.9 [facility] [address] [place] [id number] [place] [address] Jul, [facility] [address] [place] [id number] [place] [address] Jun, Anxiety F41.9 [facility] [address] [place] [id number] [place] [address] Jun, [facility] [address] [place] [id number] [place] [address] May, [facility] [address] [place] [address] May, [facility] [address] [place] [address] May, [facility] [address] [place] [address] Apr, [facility] [address] [place] [address] Apr, [facility] [address] [place] [id number] [place] [address] Apr, Anxiety F41.9 [facility] [address] [place] [id number] [place] [address] Apr, Anxiety F41.9 [facility] [address] [place] [id number] [place] [address] Apr, [facility] [address] [place] [id number] [place] [address] Mar, HTN (hypertension) I10 ; Tremor R25.1 ; Hypercholesterolemia E78.0 ; Constipation K59.00 ; Chronic pain G89.29 ; Hyperlipidemia E78.5 ; Insomnia G47.00 ; Anxiety F41.9 and Thoracic back pain, unspecified back pain laterality, unspecified chronicity M54.6 [facility] [address], [place] [address] Mar, Tremor R25.1 ; HTN (hypertension) I10 ; Hypercholesterolemia E78.0 ; Constipation K59.00 ; Chronic pain G89.29 ; Hyperlipidemia E78.5 ; Insomnia G47.00 ; Anxiety F41.9 and Thoracic back pain, unspecified back pain laterality, unspecified chronicity M54.6 [facility] [address] [place] [address] Mar, [facility] [address] [place] [address] Mar, [facility] [address] [place] [id number] [address] Feb, [facility] [address], [place] [address] Jan, [facility] [address], [place] [address] Jan, [facility] [address] [place] [address] Dec, [facility] [address] [place] [address] Nov, [facility] [address] [place] [address] Nov, [facility] [address] [place] [address] Oct, Anxiety F41.9 [facility] [address] [place] [id number] [place] [address] Oct, Chronic pain G89.29 [facility] [address], [place] [address] Sep, [facility] [address] [place] [address] Sep, [facility] [address], [place] [address] Sep, [facility] [address], [place] [address] Sep, [facility] [address], [place] [address] 16 Sep, 2015 Chronic pain syndrome G89.4 [facility] [address] [address] Sep, HTN (hypertension) I10 ; Chronic pain G89.29 ; Hypercholesterolemia E78.0 ; Chronic kidney failure N18.9 ; Constipation, unspecified constipation type K59.00 ; Anxiety F41.9 and Thoracic back pain, unspecified back pain laterality, unspecified chronicity M54.6 [facility] [address] [place] [id number] [place] [address] August, Chronic pain syndrome G89.4 [facility] [address] [place] [id number] [place] [address] August, Chronic pain syndrome G89.4 [facility] [address] [place] [id number] [place] [address] Jul, Anxiety disorder, unspecified F41.9 and Chronic pain syndrome G89.4 [facility] [address] [place] [id number] [place] [address] Jul, Insomnia, unspecified G47.00 and Chronic pain syndrome G89.4 [facility] [address] [place] [id number] [place] [address] Jul, Allergic rhinitis J30.9 [facility] [address] [place] [id number] [place] [address] Jul, Constipation, unspecified K59.00 [facility] [address] [place] [id number] [place] [address] Jul, [facility] [address] [place] [id number] [place] [address] Jun, [facility] [address] [place] [address] Jun, [facility] [address] [place] [id number] [place] [address] Jun, [facility] [address] [place] [id number] [place] [address] Jun, [facility] [address] [place] [id number] [place] [address] Jun, [facility] [address] [place] [id number] [place] [address] Jun, [facility] [address] [place] [id number] [place] [address] May, [facility] [address] [place] [id number] [place] [address] May, [facility] [address] [place] [id number] [place] [address] May, Anxiety F41.9 ; Insomnia G47.00 ; Hyperlipidemia E78.5 ; Chronic pain G89.29 ; HTN (hypertension) I10 ; Environmental allergies V15.09 and Constipation 564.00 [facility] [address] [place] [id number] [place] [address] Apr, [facility] [address] [place] [id number] [place] [address] Apr, [facility] [address] [place] [id number] [place] [address] Apr, [facility] [address] [place] [id number] [place] [address] Mar, [facility] [address] [place] [id number] [place] [address] Mar, [facility] [address] [place] [id number] [place] [address] Mar, [facility] [address] [place] [id number] [place] [address] Feb, [facility] [address] [place] [address] Feb, [facility] [address] [place] [id number] [place] [address] Feb, [facility] [address] [place] [id number] [place] [address] 15 Jan, 2015 HTN (hypertension) I10 ; Constipation K59.00 ; Chronic pain G89.29 ; Hyperlipidemia E78.5 ; Hypercholesterolemia E78.0 ; Insomnia G47.00 and Anxiety F41.9 [facility] [address], [place] [address] Jan, [facility] [address], [place] [address] Dec, [facility] [address], [place] [address] Nov, [facility] [address] [place] [id number] [place] [address] Oct, Chronic kidney disease, unspecified 585.9 ; Chronic pain syndrome 338.4 ; Hyperlipidemia 272.4 and Essential hypertension 401.9 [facility] [address] [place] [id number] [place] [address] Oct, Chronic kidney disease 585.9 [facility] [address], [place] [address] Oct, [facility] [address] [place] [address] Oct, Chronic kidney disease, unspecified 585.9 ; Hypercalcemia 275.42 ; Hyperlipidemia 272.4 ; Essential hypertension 401.9 ; Chronic pain syndrome 338.4 ; Insomnia 780.52 ; Constipation 564.00 ; Environmental allergies V15.09 and Anxiety 300.00 [facility] [address], [place] [address] Oct, Chronic kidney disease 585.9 [facility] [address], [place] [address] Oct, [facility] [address], [place] [address] Oct, Chronic kidney disease 585.9 and Hyperlipidemia 272.4 [facility] [address], [place] [address] Oct, [facility] [address], [place] [address] Oct, [facility] [address] [facility] [id number] [place] [address] 18 Sep, 2014 [facility] [address] [id number], [place] [address] Sep, [facility] [place] [facility] [address] [facility] [id number] [place] [address] 15 Sep, 2014 Chronic kidney disease 585.9 and Hyperlipidemia 272.4 [facility] [place] [facility] [address] [id number] [place] [address] Sep, [facility] [address] [id number] [place] [address] August, [facility] [address] [id number] [place] [address] August, [facility] [address] [facility] [id number] [place] [address] Jul, [facility] [address] [facility] [id number] [address] Jul, [facility] [address] [id number] [place] [address] Jun, [facility] [address] [facility] [id number] [address] Jun, [facility] [place] [facility] [address] [id number], [place] [address] Jun, [facility] [place] [facility] [address] [id number], [place] [address] Jun, [facility] [place] [facility] [address] [id number] [place] [address] Jun, [facility] [place] [facility] [address] [id number], [place] [address] Jun, [facility] [place] [facility] [address] [facility] [id number] [place] [address] Jun, [facility] [place] [facility] [address] [id number] [place] [address] Jun, [facility] [place] [facility] [address] [id number] [place] [address] May, [facility] [place] [facility] [address] [id number] [place] [address] May, [facility] [place] [facility] [address] [id number] [place] [address] May, [facility] [place] [facility] [address] [id number] [place] [address] May, [facility] [place] [facility] [address] [id number] [place] [address] Apr, [facility] [place] [facility] [address] [id number] [place] [address] Apr, [facility] [place] [facility] [address] [id number] [place] [address] Apr, [facility] [place] [facility] [address] [id number] [place] [address] Apr, [facility] [place] [facility] [address] [id number] [place] [address] Apr, [facility] [place] [facility] [address] [id number] [place] [address] Apr, [facility] [place] [facility] [address] [id number] [place] [address] Apr, [facility] [place] [facility] [address] [id number] [place] [address] Apr, [facility] [place] [facility] [address] [id number] [place] [address] Apr, [facility] [place] [facility] [address] [id number] [place] [address] Apr, [facility] [place] [facility] [address] [id number] [place] [address] Apr, [facility] [place] [facility] [address] [id number] [place] [address] Mar, [facility] [place] [facility] [address] [id number] [place] [address] Mar, [facility] [place] [facility] [address] [id number] [place] [address] Feb, [facility] [place] [facility] [address] [id number] [place] [address] Feb, [facility] [place] [facility] [address] [id number] [place] [address] Feb, [facility] [place] [facility] [address] [id number] [place] [address] Feb, [facility] [place] [facility] [address] [id number] [place] [address] Feb, [facility] [place] [facility] [address] [id number] [place] [address] Feb, [facility] [place] [facility] [address] [id number] [place] [address] Feb, [facility] [place] [facility] [address] [id number] [place] [address] Feb, [facility] [place] [facility] [address] [id number] [place] [address] Feb, [facility] [place] [facility] [address] [id number] [address] Feb, [facility] [place] [facility] [address] [id number] [place] [address] Jan, [facility] [place] [facility] [address] [id number] [place] [address] Jan, [facility] [place] [facility] [address] [id number], [place] [address] Jan, [facility] [place] [facility] [address] [id number], [place] [address] Jan, [facility] [place] [facility] [address] [id number] [place] [address] Jan, [facility] [place] [facility] [address] [id number] [place] [address] Jan, [facility] [place] [facility] [address] [id number] [place] [address] Jan, [facility] [place] [facility] [address] [id number] [place] [address] Jan, [facility] [place] [facility] [address] [id number] [place] [address] 16 Jan, 2014 [facility] [place] [facility] [address] [id number] [place] [address] Jan, [facility] [place] [facility] [address] [id number] [place] [address] Jan, [facility] [place] [facility] [address] [id number] [place] [address] 26 Dec, 2013 [facility] [place] [facility] [address] [id number] [place] [address] 26 Dec, 2013 [facility] [place] [facility] [address] [id number] [place] [address] 19 Dec, 2013 [facility] [place] [facility] [address] [id number], [place] [address] 19 Dec, 2013 [facility] [place] [facility] [address] [id number], [place] [address] 18 Dec, 2013 [facility] [place] [facility] [address] [id number] [place] [address] 18 Dec, 2013 [facility] [place] [facility] [address] [id number] [place] [address] 03 Sep, 2013 [facility] [place] [facility] [address] [id number] [place] [address] 03 Sep, 2013 [facility] [place] [facility] [address] [id number] [place] [address] Nov, [facility] [place] [facility] [address] [id number] [place] [address] Nov, [facility] [place] [facility] [address] [id number] [place] [address] Nov, [facility] [place] [facility] [address] [id number] [place] [address] Nov, [facility] [place] [facility] [address] [id number] [place] [address] Nov, [facility] [place] [facility] [address] [id number] [place] [address] Nov, [facility] [place] [facility] [address] [id number] [place] [address] Nov, [facility] [place] [facility] [address] [id number] [place] [address] Nov, [facility] [place] [facility] [address] [id number] [place] [address] Oct, [facility] [place] [facility] [address] [id number] [place] [address] Oct, [facility] [place] [facility] [address] [id number] [place] [address] Oct, [facility] [place] [facility] [address] [id number] [place] [address] Oct, [facility] [place] [facility] [address] [id number] [place] [address] Sep, [facility] [place] [facility] [address] [id number] [place] [address] Sep, [facility] [place] [facility] [address] [id number] [place] [address] Sep, [facility] [place] [facility] [address] [id number] [place] [address] Sep, [facility] [place] [facility] [address] [id number] [place] [address] Sep, [facility] [place] [facility] [address] [id number] [place] [address] Sep, [facility] [place] [facility] [address] [id number] [place] [address] Sep, [facility] [place] [facility] [address] [id number] [place] [address] Sep, [facility] [place] [facility] [address] [id number] [place] [address] August, [facility] [place] [facility] [address] [id number] [place] [address] August, [facility] [place] [facility] [address] [id number] [place] [address] August, [facility] [place] [facility] [address] [id number] [place] [address] August, [facility] [place] [facility] [address] [id number] [place] [address] August, [facility] [place] [facility] [address] [id number] [place] [address] August, [facility] [place] [facility] [address] [id number] [place] [address] August, [facility] [place] [facility] [address] [id number] [place] [address] August, [facility] [place] [facility] [address] [id number] [place] [address] August, [facility] [place] [facility] [address] [id number] [place] [address] August, [facility] [place] [facility] [address] [id number] [place] [address] Jul, [facility] [place] [facility] [address] [id number] [place] [address] Jul, [facility] [place] [facility] [address] [id number] [place] [address] Jul, [facility] [place] [facility] [address] [id number] [place] [address] Jul, [facility] [place] [facility] [address] [id number] [place] [address] Jul, [facility] [place] [facility] [address] [id number] [place] [address] Jul, [facility] [place] [facility] [address] [id number] [place] [address] Jul, [facility] [place] [facility] [address] [id number] [place] [address] Jul, [facility] [place] [facility] [address] [id number] [place] [address] Jun, [facility] [place] [facility] [address] [id number] [place] [address] Jun, [facility] [place] [facility] [address] [id number] [place] [address] Jun, [facility] [place] [facility] [address] [facility] [id number] [place] [address] Jun, [facility] [place] [facility] [address] [id number] [place] [address] Jun, [facility] [place] [facility] [address] [id number] [place] [address] Jun, [facility] [place] [facility] [address] [id number] [place] [address] May, [facility] [place] [facility] [address] [id number] [place] [address] May, [facility] [place] [facility] [address] [id number] [place] [address] May, [facility] [place] [facility] [address] [id number] [place] [address] May, [facility] [place] [facility] [address] [id number] [place] [address] May, [facility] [place] [facility] [address] [id number] [place] [address] May, [facility] [place] [facility] [address] [id number] [place] [address] May, [facility] [place] [facility] [address] [id number] [place] [address] Apr, [facility] [place] [facility] [address] [id number] [place] [address] Apr, [facility] [place] [facility] [address] [id number] [place] [address] Apr, [facility] [place] [facility] [address] [id number] [place] [address] Apr, [facility] [place] [facility] [address] [id number] [place] [address] Apr, [facility] [place] [facility] [address] [id number] [place] [address] Apr, [facility] [place] [facility] [address] [id number] [place] [address] Mar, [facility] [place] [facility] [address] [id number] [place] [address] Mar, [facility] [place] [facility] [address] [id number] [place] [address] Mar, [facility] [place] [facility] [address] [id number] [place] [address] Mar, [facility] [place] [facility] [address] [id number] [place] [address] Mar, [facility] [place] [facility] [address] [id number], [place] [address] 19 Mar, 2013 [facility] [address] [id number] [place] [address] 16 Mar, 2013 [facility] [place] [facility] [address] [id number] [place] [address] 16 Mar, 2013 [facility] [address] [id number] [place] [address] 12 Mar, 2013 [facility] [place] [facility] [address] [id number] [place] [address] Mar, [facility] [address] [id number] [place] [address] Feb, [facility] [place] [facility] [address] [id number] [place] [address] Feb, [facility] [address] [id number], [place] [address] Feb, [facility] [place] [facility] [address] [id number], [place] [address] Feb, [facility] [address] [id number] [place] [address] 14 Feb, 2013 [facility] [place] [facility] [address] [facility] [id number], [place] [address] 14 Feb, 2013 [facility] [address] [id number], [place] [address] Feb, [facility] [place] [facility] [address] [id number], [place] [address] Feb, [facility] [place] [facility] [address] [id number], [place] [address] 08 Feb, 2013 [facility] [place] [facility] [address] [id number], [place] [address] 08 Feb, 2013 [facility] [place] [facility] [address] [id number], [place] [address] Jan, [facility] [place] [facility] [address] [id number] [place] [address] Jan, [facility] [place] [facility] [address] [id number] [place] [address] Jan, [facility] [place] [facility] [address] [id number] [place] [address] Jan, [facility] [place] [facility] [address] [id number] [place] [address] Jan, [facility] [place] [facility] [address] [id number] [place] [address] Jan, [facility] [place] [facility] [address] [id number] [place] [address] Jan, [facility] [place] [facility] [address] [id number] [place] [address] Jan, [facility] [place] [facility] [address] [id number] [place] [address] Jan, [facility] [place] [facility] [address] [id number] [place] [address] Dec, [facility] [place] [facility] [address] [id number] [place] [address] Dec, [facility] [place] [facility] [address] [id number] [place] [address] Dec, [facility] [place] [facility] [address] [id number] [place] [address] Dec, [facility] [place] [facility] [address] [id number] [place] [address] Nov, [facility] [place] [facility] [address] [id number] [place] [address] Nov, [facility] [place] [facility] [address] [id number] [place] [address] Nov, [facility] [place] [facility] [address] [id number] [place] [address] Nov, [facility] [address] [id number] [place] [address] Nov, [facility] [place] [facility] [address] [id number] [place] [address] Nov, [facility] [place] [facility] [address] [id number] [place] [address] Oct, [facility] [place] [facility] [address] [id number] [place] [address] Oct, [facility] [place] [facility] [address] [id number] [place] [address] Oct, [facility] [place] [facility] [address] [id number] [place] [address] Oct, [facility] [place] [facility] [address] [id number] [place] [address] Sep, [facility] [place] [facility] [address] [id number] [place] [address] Sep, [facility] [place] [facility] [address] [id number] [place] [address] Sep, [facility] [place] [facility] [address] [id number] [place] [address] Sep, [facility] [place] [facility] [address] [id number], [place] [address] Sep, [facility] [place] [facility] [address] [id number], [place] [address] August, [facility] [place] [facility] [address] [id number] [place] [address] August, [facility] [place] [facility] [address] [id number] [place] [address] Jul, [facility] [place] [facility] [address] [id number] [place] [address] Jul, [facility] [place] [facility] [address] [id number] [place] [address] 15 Jul, 2012 [facility] [address] [id number] [place] [address] 09 Jul, 2012 [facility] [place] [facility] [address] [id number] [place] [address] 08 Jul, 2012 [facility] [address] [id number] [place] [address] 26 Jun, 2012 [facility] [place] [facility] [address] [id number] [place] [address] Jun, [facility] [address] [id number] [place] [address] 15 Jun, 2012 [facility] [address] [facility] [id number] [place] [address] Jun, [facility] [address] [facility] [id number] [place] [address] Jun, [facility] [address] [facility] [id number] [place] [address] 28 May, 2012 [facility] [id number] [place] [address] 27 May, 2012 [facility] [address] [facility] [id number] [place] [address] 25 May, 2012 [facility] [place] [facility] [address] [facility] [id number] [place] [address] 21 May, 2012 [facility] [address] [facility] [id number] [place] [address] 20 May, 2012 [facility] [place] [facility] [address] [id number] [place] [address] 14 May, 2012 [facility] [place] [facility] [address] [facility] [id number] [place] [address] 13 May, 2012 [facility] [place] [facility] [address] [facility] [id number] [place] [address] May, [facility] [address] [id number] [place] [address] May, [facility] [address] [id number] [place] [address] Apr, [facility] [place] [facility] [address] [facility] [id number] [place] [address] Apr, [facility] [place] [facility] [address] [id number] [place] [address] Apr, [facility] [address] [id number] [place] [address] Apr, [facility] [address] [id number] [place] [address] Apr, [facility] [address] [id number] [place] [address] Mar, [facility] [place] [facility] [address] [id number] [place] [address] Mar, [facility] [address] [id number] [place] [address] Mar, [facility] [place] [facility] [address] [id number] [place] [address] Mar, [facility] [place] [facility] [address] [id number] [place] [address] Mar, [facility] [place] [facility] [address] [id number], [place] [address] Mar, [facility] [place] [facility] [address] [id number] [place] [address] Mar, [facility] [place] [facility] [address] [id number] [place] [address] Mar, [facility] [place] [facility] [address] [facility] [id number] [place] [address] Mar, [facility] [place] [facility] [address] [id number] [place] [address] Mar, [facility] [address] [id number] [place] [address] 30 Feb, 2012 [facility] [place] [facility] [address] [id number] [place] [address] Feb, [facility] [place] [facility] [address] [id number] [place] [address] Feb, [facility] [place] [facility] [address] [id number] [place] [address] Feb, [facility] [place] [facility] [address] [id number] [place] [address] Feb, [facility] [place] [facility] [address] [id number] [place] [address] Feb, [facility] [place] [facility] [address] [id number] [place] [address] Feb, [facility] [place] [facility] [address] [id number] [place] [address] Feb, [facility] [place] [facility] [address] [id number] [place] [address] Feb, [facility] [place] [facility] [address] [id number] [place] [address] 16 Feb, 2012 [facility] [place] [facility] [address] [id number] [place] [address] Feb, [facility] [place] [facility] [address] [id number] [place] [address] Feb, [facility] [place] [facility] [address] [id number] [place] [address] Feb, [facility] [place] [facility] [address] [id number] [place] [address] Feb, [facility] [place] [facility] [address] [id number] [place] [address] Feb, [facility] [place] [facility] [address] [id number] [place] [address] 08 Feb, 2012 [facility] [place] [facility] [address] [id number] [place] [address] Feb, [facility] [place] [facility] [address] [id number] [place] [address] Feb, [facility] [place] [facility] [address] [id number] [place] [address] Jan, [facility] [place] [facility] [address] [id number] [place] [address] Jan, [facility] [place] [facility] [address] [id number] [place] [address] Jan, [facility] [place] [facility] [address] [id number] [place] [address] Jan, [facility] [place] [facility] [address] [id number], [place] [address] Jan, [facility] [place] [facility] [address] [id number] [place] [address] Jan, [facility] [place] [facility] [address] [id number], [place] [address] Jan, [facility] [place] [facility] [address] [facility] [id number], [place] [address] Jan, [facility] [place] [facility] [address] [id number], [place] [address] Jan, [facility] [place] [facility] [address] [id number], [place] [address] Jan, [facility] [place] [facility] [address] [id number], [place] [address] 24 Dec, 2011 [facility] [place] [facility] [address] [id number], [place] [address] 18 Dec, 2011 [facility] [place] [facility] [address] [id number], [place] [address] Dec, [facility] [place] [facility] [address] [id number] [place] [address] Dec, [facility] [place] [facility] [address] [id number] [place] [address] Nov, [facility] [place] [facility] [address] [id number] [place] [address] Nov, [facility] [place] [facility] [address] [id number] [place] [address] Nov, [facility] [place] [facility] [address] [id number] [place] [address] Nov, [facility] [place] [facility] [address] [id number] [place] [address] Nov, [facility] [place] [facility] [address] [id number] [place] [address] Nov, [facility] [place] [facility] [address] [id number] [place] [address] Oct, [facility] [place] [facility] [address] [id number] [place] [address] Oct, [facility] [place] [facility] [address] [id number] [place] [address] Oct, [facility] [place] [facility] [address] [id number] [place] [address] Oct, [facility] [place] [facility] [address] [id number] [place] [address] Oct, [facility] [place] [facility] [address] [id number] [place] [address] Sep, [facility] [place] [facility] [address] [id number] [place] [address] Sep, [facility] [place] [facility] [address] [id number] [place] [address] Sep, [facility] [place] [facility] [address] [id number] [place] [address] 07 Sep, 2011 [facility] [address] [id number] [place] [address] Sep, [facility] [place] [facility] [address] [id number] [place] [address] August, [facility] [address] [id number] [place] [address] August, [facility] [address] [id number] [place] [address] August, [facility] [address] [id number] [place] [address] August, [facility] [address] [id number] [place] [address] Jul, [facility] [address] [id number] [place] [address] Jul, [facility] [address] [id number] [place] [address] Jul, [facility] [address] [id number] [place] [address] Jul, [facility] [address] [id number] [place] [address] Jul, [facility] [place] [facility] [address] [id number] [place] [address] 12 Jul, 2011 [facility] [place] [facility] [address] [id number] [place] [address] 11 Jul, 2011 [facility] [place] [facility] [address] [id number] [place] [address] 10 Jul, 2011 [facility] [place] [facility] [address] [id number] [place] [address] 09 Jul, 2011 [facility] [place] [facility] [address] [id number] [place] [address] Jul, [facility] [address] [id number] [place] [address] 05 Jul, 2011 [facility] [place] [facility] [address] [id number] [place] [address] Jul, [facility] [place] [facility] [address] [id number] [place] [address] Jul, [facility] [place] [facility] [address] [id number] [place] [address] Jul, [facility] [place] [facility] [address] [id number] [place] [address] Jun, [facility] [place] [facility] [address] [id number] [place] [address] Jun, [facility] [place] [facility] [address] [id number] [place] [address] Jun, [facility] [place] [facility] [address] [id number] [place] [address] Jun, [facility] [place] [facility] [address] [id number] [place] [address] May, [facility] [place] [facility] [address] [id number] [place] [address] May, [facility] [place] [facility] [address] [id number] [place] [address] May, [facility] [place] [facility] [address] [id number] [place] [address] Apr, [facility] [place] [facility] [address] [id number] [place] [address] Apr, [facility] [place] [facility] [address] [id number] [place] [address] 13 Apr, 2011 [facility] [place] [facility] [address] [id number] [place] [address] Apr, [facility] [place] [facility] [address] [id number] [place] [address] 09 Apr, 2011 [facility] [address] [id number] [place] [address] Mar, [facility] [place] [facility] [address] [id number] [place] [address] Mar, [facility] [place] [facility] [address] [id number] [place] [address] Mar, [facility] [place] [facility] [address] [id number] [place] [address] Mar, [facility] [place] [facility] [address] [id number] [place] [address] Mar, [facility] [place] [facility] [address] [id number] [place] [address] Mar, [facility] [place] [facility] [address] [id number] [place] [address] Mar, [facility] [place] [facility] [address] [id number] [place] [address] Feb, [facility] [place] [facility] [address] [id number] [place] [address] 25 Feb, 2011 [facility] [place] [facility] [address] [id number] [place] [address] Feb, [facility] [place] [facility] [address] [id number] [place] [address] Feb, [facility] [place] [facility] [address] [id number] [place] [address] 16 Feb, 2011 [facility] [place] [facility] [address] [id number] [place] [address] 14 Feb, 2011 [facility] [place] [facility] [address] [id number] [place] [address] 10 Feb, 2011 [facility] [place] [facility] [address] [id number] [place] [address] 31 Jan, 2011 [facility] [place] [facility] [address] [id number] [place] [address] 31 Jan, 2011 [facility] [address] [id number] [place] [address] 31 Jan, 2011 [facility] [place] [facility] [address] [id number] [place] [address] 18 Jan, 2011 [facility] [place] [facility] [address] [id number] [place] [address] 17 Jan, 2011 [facility] [address] [id number] [place] [address] 17 Jan, 2011 [facility] [address] [id number] [place] [address] 17 Jun, 2010 [facility] [address] [id number] [place] [address] 30 Mar, 2010 [facility] [address] [id number] [place] [address] 20 Mar, 2010 [facility] [address] [id number] [place] [address] 14 Mar, 2010 [facility] [place] [facility] [address] [id number] [place] [address] 14 Mar, 2010 [facility] [place] [facility] [address] [id number] [place] [address] 13 Mar, 2010 [facility] [place] [facility] [address] [id number] [place] [address] 07 Mar, 2010 [facility] [place] [facility] [address] [id number] [place] [address] 02 Mar, 2010 [facility] [place] [facility] [address] [id number] [place] [address] Mar, [facility] [place] [facility] [address] [id number] [place] [address] 30 Feb, 2010 [facility] [place] [facility] [address] [id number] [address] 29 Feb, 2010 [facility] [place] [facility] [address] [id number] [place] [address] 17 Feb, 2010 [facility] [place] [facility] [address] [id number] [place] [address] 17 Feb, 2010 [facility] [place] [facility] [address] [id number] [place] [address] 16 Feb, 2010 [facility] [place] [facility] [address] [id number] [place] [address] 08 Feb, 2010 [facility] [place] [facility] [address] [id number] [place] [address] 04 Feb, 2010 [facility] [place] [facility] [address] [id number] [place] [address] Feb, [facility] [place] [facility] [address] [id number] [place] [address] Jan, [facility] [place] [facility] [address] [id number] [place] [address] Jan, [facility] [place] [facility] [address] [id number] [place] [address] 25 Jan, 2010 [facility] [place] [facility] [address] [id number] [place] [address] Jan, [facility] [place] [facility] [address] [id number], [place] [address] 29 Mar, 2009 [facility] [place] [facility] [address] [id number] [address] 22 Mar, 2009 [facility] [place] [facility] [address] [id number] [place] [address] 19 Mar, 2009 [facility] [place] [facility] [address] [id number] [place] [address] 19 Mar, 2009 [facility] [place] [facility] [address] [id number] [place] [address] 14 Mar, 2009 [facility] [place] [facility] [address] [facility] [id number] [place] [address] Mar, [facility] [address] [id number] [address] Feb, [facility] [address] [id number] [address] Feb, [facility] [address] [id number] [address] Jan, [facility] [address] [id number] [address] Sep, [facility] [address] [id number] [address] May, IMMUNIZATIONS No Known Immunizations SOCIAL HISTORY Never Assessed REASON FOR VISIT EMR-[facility] [place] PLAN OF CARE VITAL SIGNS MEDICATIONS Unknown [...] Surgical History Left ear surgery Hospitalization History [facility] in [place]- Spontaneous Pneumothorax Hospitalization History [facility]- Colon resection Hospitalization History via [facility] - diarrhea/ couldnt urinate nov 2017
--- OUTSIDE RECORDS SUMMARY | 2018-10-15 01:03 | XMS REPORT ---
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 [employer] Operator Name Role Phone Migration, Doctor Unavailable Unavailable PROBLEMS Type Condition ICD9-CM Code [id number] Code Onset Dates Condition Status SNOMED Code Problem Constipation K59.00 Active 99930029 Problem Chronic pain G89.29 Active 04394768 Problem Hyperlipidemia E78.5 Active 02054693 Problem Insomnia G47.00 Active 053602850 Problem Chronic kidney disease, stage III (moderate) N18.3 Active 096570806 Problem Anxiety F41.9 Active 60731239 Problem Vision loss H54.7 Active 663604849 Problem HTN (hypertension) I10 Active 02788674 Problem Thoracic back pain, unspecified back pain laterality, unspecified chronicity M54.6 Active 477458248 Problem Vitamin D deficiency E55.9 Active 57406029 Problem Environmental allergies Z91.09 Active 414278581 Problem Primary insomnia F51.01 Active 7042038 ALLERGIES No Information ENCOUNTERS Encounter Location Date Diagnosis [place] [address] [address] Jul, [place] [address] [address] Jul, Thoracic back pain, unspecified back pain laterality, unspecified chronicity M54.6 [place] [address] [place] [id number] [place] [address] Jun, Anxiety F41.9 and Thoracic back pain, unspecified back pain laterality, unspecified chronicity M54.6 [place] [address] [address] Jun, Anxiety F41.9 and Thoracic back pain, unspecified back pain laterality, unspecified chronicity M54.6 [place] [address] [address] Jun, Thoracic back pain, unspecified back pain laterality, unspecified chronicity M54.6 [place] [address] [place] [id number] [place] [address] Jun, Anxiety F41.9 and Thoracic back pain, unspecified back pain laterality, unspecified chronicity M54.6 [place] [address] [address] May, [place] [address] [address] May, [place] [address] [address] May, [place] [address] [address] May, Anxiety F41.9 and Encounter for medication monitoring Z51.81 [place] [address] [address] May, Anxiety F41.9 and Thoracic back pain, unspecified back pain laterality, unspecified chronicity M54.6 [place] [address] [address] Apr, Hyperlipidemia 272.4 [place] [address] [place] [id number] [place] [address] Apr, Chronic pain G89.29 ; Anxiety F41.9 ; Cervical radiculopathy M54.12 and Vision loss H54.7 [place] [address] [place] [id number] [place] [address] Apr, [place] [address] [address] Apr, Anxiety F41.9 and Thoracic back pain, unspecified back pain laterality, unspecified chronicity M54.6 [place] [address] [place] [id number] [place] [address] Mar, [facility] [id number] [place] [address] 10 Mar, 2018 Anxiety F41.9 and Thoracic back pain, unspecified back pain laterality, unspecified chronicity M54.6 [place] [address] [place] [id number] [place] [address] 14 Feb, 2018 Anxiety F41.9 and Thoracic back pain, unspecified back pain laterality, unspecified chronicity M54.6 [place] [address] [place] [id number] [place] [address] 07 Feb, 2018 Thoracic back pain, unspecified back pain laterality, unspecified chronicity M54.6 [place] [address] [place] [id number] [place] [address] 29 Jan, 2018 [place] [address] [place] [id number] [place] [address] 16 Jan, 2018 Anxiety F41.9 and Thoracic back pain, unspecified back pain laterality, unspecified chronicity M54.6 [place] [address] [place] [id number] [place] [address] 19 Dec, 2017 Diarrhea of presumed infectious origin R19.7 [place] [address] [place] [id number] [place] [address] 19 Dec, 2017 Diarrhea of presumed infectious origin R19.7 [place] [address] [place] [id number] [place] [address] 18 Dec, 2017 Thoracic back pain, unspecified back pain laterality, unspecified chronicity M54.6 [place] [address] [place] [id number] [place] [address] 17 Dec, 2017 [place] [address] [place] [id number] [place] [address] 17 Dec, 2017 Anxiety F41.9 and Thoracic back pain, unspecified back pain laterality, unspecified chronicity M54.6 [place] [address] [place] [id number] [place] [address] Dec, Diarrhea of presumed infectious origin R19.7 [place] [address] [address] Dec, [place] [id number] [place] [address] Dec, Anxiety F41.9 and Thoracic back pain, unspecified back pain laterality, unspecified chronicity M54.6 [place] [id number] [place] [address] Dec, Anxiety F41.9 and Thoracic back pain, unspecified back pain laterality, unspecified chronicity M54.6 [facility] [address] [place] [id number] Dec, Diarrhea of presumed infectious origin R19.7 ; Anxiety F41.9 ; Thoracic back pain, unspecified back pain laterality, unspecified chronicity M54.6 and HTN (hypertension) I10 [place] [id number] [place] [address] Dec, Anxiety F41.9 [facility] [employer] [address] [place] [id number] Dec, Anxiety F41.9 ; Diarrhea of presumed infectious origin R19.7 ; Generalized abdominal pain R10.84 and Localized edema R60.[address] [place] [address] Nov, [facility] [employer] [facility] [address] [place] [id number] Nov, Anxiety F41.9 ; Urinary retention R33.9 ; Diarrhea of presumed infectious origin R19.7 ; Weakness R53.1 ; Acute kidney failure, unspecified N17.9 ; Chronic kidney disease, stage III (moderate) N18.3 and Thoracic back pain, unspecified back pain laterality, unspecified chronicity M54.6 [address] [address] Oct, Thoracic back pain, unspecified back pain laterality, unspecified chronicity M54.6 and Anxiety F41.9 [place] [address] [address] Sep, Thoracic back pain, unspecified back pain laterality, unspecified chronicity M54.6 and Anxiety F41.9 [facility] [address] [place] [id number] [place] [address] 04 Sep, 2017 Thoracic back pain, unspecified back pain laterality, unspecified chronicity M54.6 ; Anxiety F41.9 and Encounter for medication monitoring Z51.81 [place] [address] [place] [id number] [place] [address] August, [place] [address] [address] August, Thoracic back pain, unspecified back pain laterality, unspecified chronicity M54.6 and Anxiety F41.9 [place] [address] [place] [id number] [place] [address] August, Hyperlipidemia E78.5 and HTN (hypertension) I10 [place] [address] [place] [id number] [place] [address] August, [place] [address] [place] [id number] [place] [address] August, Medicare welcome exam Z00.00 ; Chronic kidney failure N18.9 ; Anxiety F41.9 ; Chronic pain G89.29 ; Insomnia G47.00 ; Hyperlipidemia E78.5 ; HTN (hypertension) I10 and Thoracic back pain, unspecified back pain laterality, unspecified chronicity M54.6 [place] [id number] [place] [address] Jul, [place] [address] [place] [id number] [place] [address] Jul, [place] [id number] [place] [address] Jul, [place] [address] [place] [id number] [place] [address] Jul, Anxiety F41.9 [place] [address] [place] [id number] [place] [address] Jul, Thoracic back pain, unspecified back pain laterality, unspecified chronicity M54.6 and Anxiety F41.9 [place] [address] [place] [id number] [place] [address] Jun, Thoracic back pain, unspecified back pain laterality, unspecified chronicity M54.6 and Anxiety F41.9 [place] [address] [place] [id number] [place] [address] May, Thoracic back pain, unspecified back pain laterality, unspecified chronicity M54.6 and Anxiety F41.9 [place] [address] [place] [id number] [place] [address] Apr, Thoracic back pain, unspecified back pain laterality, unspecified chronicity M54.6 and Anxiety F41.9 [place] [address] [place] [id number] [place] [address] Mar, [place] [address] [address] Mar, Thoracic back pain, unspecified back pain laterality, unspecified chronicity M54.6 and Anxiety F41.9 [place] [address] [place] [id number] [place] [address] Mar, Thoracic back pain, unspecified back pain laterality, unspecified chronicity M54.6 ; HTN (hypertension) I10 ; Hyperlipidemia E78.5 and Anxiety F41.9 [place] [address] [place] [id number] [place] [address] Feb, Thoracic back pain, unspecified back pain laterality, unspecified chronicity M54.6 and Anxiety F41.9 [place] [address] [place] [id number] [place] [address] Nov, [place] [address] [address] Oct, [facility] [address] [place] [id number] [place] [address] Oct, Thoracic back pain, unspecified back pain laterality, unspecified chronicity M54.6 [facility] [address] [place] [id number] [place] [address] Oct, HTN (hypertension) I10 ; Constipation K59.00 ; Hyperlipidemia E78.5 ; Thoracic back pain, unspecified back pain laterality, unspecified chronicity M54.6 ; Chronic pain G89.29 ; Anxiety F41.9 ; Chronic kidney failure N18.9 ; Environmental allergies Z91.09 ; Vitamin D deficiency E55.9 and Primary insomnia F51.01 [facility] [address] [place] [id number] [place] [address] Sep, Anxiety F41.9 [facility] [address] [place] [id number] [place] [address] Sep, [facility] [address] [place] [id number] [place] [address] August, Anxiety F41.9 [facility] [address] [place] [id number] [place] [address] August, [facility] [address] [place] [id number] [place] [address] Jul, Anxiety F41.9 [facility] [address] [place] [id number] [place] [address] Jul, [facility] [address] [place] [id number] [place] [address] Jun, Anxiety F41.9 [facility] [address] [place] [id number] [place] [address] Jun, [facility] [address] [place] [id number] [place] [address] May, [facility] [address] [place] [address] May, [facility] [id number] [place] [address] May, [facility] [id number] [place] [address] Apr, [facility] [id number] [place] [address] Apr, [facility] [address] [place] [id number] [place] [address] Apr, Anxiety F41.9 [facility] [address] [place] [id number] [place] [address] Apr, Anxiety F41.9 [facility] [address] [place] [id number] [place] [address] Apr, [facility] [address] [place] [id number] [place] [address] Mar, HTN (hypertension) I10 ; Tremor R25.1 ; Hypercholesterolemia E78.0 ; Constipation K59.00 ; Chronic pain G89.29 ; Hyperlipidemia E78.5 ; Insomnia G47.00 ; Anxiety F41.9 and Thoracic back pain, unspecified back pain laterality, unspecified chronicity M54.6 [facility] [address], [place] [address] Mar, Tremor R25.1 ; HTN (hypertension) I10 ; Hypercholesterolemia E78.0 ; Constipation K59.00 ; Chronic pain G89.29 ; Hyperlipidemia E78.5 ; Insomnia G47.00 ; Anxiety F41.9 and Thoracic back pain, unspecified back pain laterality, unspecified chronicity M54.6 [facility] [id number] [place] [address] Mar, [facility] [id number] [place] [address] Mar, [facility] [address] [place] [id number] [address] Feb, [facility] [id number], [place] [address] Jan, [facility] [id number], [place] [address] Jan, [facility] [id number] [place] [address] Dec, [facility] [id number] [place] [address] Nov, [facility] [id number] [place] [address] Nov, [facility] [id number] [place] [address] Oct, Anxiety F41.9 [facility] [address] [place] [id number] [place] [address] Oct, Chronic pain G89.29 [facility] [address], [place] [address] Sep, [facility] [id number] [place] [address] Sep, [facility] [address], [place] [address] Sep, [facility] [id number], [place] [address] Sep, [facility] [address], [place] [address] 16 Sep, 2015 Chronic pain syndrome G89.4 [facility] [address], [place] [address] Sep, HTN (hypertension) I10 ; Chronic pain G89.29 ; Hypercholesterolemia E78.0 ; Chronic kidney failure N18.9 ; Constipation, unspecified constipation type K59.00 ; Anxiety F41.9 and Thoracic back pain, unspecified back pain laterality, unspecified chronicity M54.6 [facility] [address] [place] [id number] [place] [address] August, Chronic pain syndrome G89.4 [facility] [address] [place] [id number] [place] [address] August, Chronic pain syndrome G89.4 [facility] [address] [place] [id number] [place] [address] Jul, Anxiety disorder, unspecified F41.9 and Chronic pain syndrome G89.4 [facility] [address] [place] [id number] [place] [address] Jul, Insomnia, unspecified G47.00 and Chronic pain syndrome G89.4 [facility] [address] [place] [id number] [place] [address] Jul, Allergic rhinitis J30.9 [facility] [address] [place] [id number] [place] [address] Jul, Constipation, unspecified K59.00 [facility] [address] [place] [id number] [place] [address] Jul, [facility] [address] [place] [id number] [place] [address] Jun, [facility] [address] [place] [address] Jun, [facility] [address] [place] [id number] [place] [address] Jun, [facility] [address] [place] [id number] [place] [address] Jun, [facility] [address] [place] [id number] [place] [address] Jun, [facility] [address] [place] [id number] [place] [address] Jun, [facility] [address] [place] [id number] [place] [address] May, [facility] [address] [place] [id number] [place] [address] May, [facility] [address] [place] [id number] [place] [address] May, Anxiety F41.9 ; Insomnia G47.00 ; Hyperlipidemia E78.5 ; Chronic pain G89.29 ; HTN (hypertension) I10 ; Environmental allergies V15.09 and Constipation 564.00 [facility] [address] [place] [id number] [place] [address] Apr, [facility] [address] [place] [id number] [place] [address] Apr, [facility] [address] [place] [id number] [place] [address] Apr, [facility] [address] [place] [id number] [place] [address] Mar, [facility] [address] [place] [id number] [place] [address] Mar, [facility] [address] [place] [id number] [place] [address] Mar, [facility] [address] [place] [id number] [place] [address] Feb, [facility] [address] [place] [address] Feb, [facility] [address] [place] [id number] [place] [address] Feb, [facility] [address] [place] [id number] [place] [address] 15 Jan, 2015 HTN (hypertension) I10 ; Constipation K59.00 ; Chronic pain G89.29 ; Hyperlipidemia E78.5 ; Hypercholesterolemia E78.0 ; Insomnia G47.00 and Anxiety F41.9 [facility] [address], [place] [address] Jan, [facility] [id number], [place] [address] Dec, [facility] [address], [place] [address] Nov, [facility] [address] [place] [id number] [place] [address] Oct, Chronic kidney disease, unspecified 585.9 ; Chronic pain syndrome 338.4 ; Hyperlipidemia 272.4 and Essential hypertension 401.9 [facility] [address] [place] [id number] [place] [address] Oct, Chronic kidney disease 585.9 [facility] [address], [place] [address] Oct, [facility] [address] [place] [address] Oct, Chronic kidney disease, unspecified 585.9 ; Hypercalcemia 275.42 ; Hyperlipidemia 272.4 ; Essential hypertension 401.9 ; Chronic pain syndrome 338.4 ; Insomnia 780.52 ; Constipation 564.00 ; Environmental allergies V15.09 and Anxiety 300.00 [facility] [address], [place] [address] Oct, Chronic kidney disease 585.9 [facility] [address], [place] [address] Oct, [facility] [address], [place] [address] Oct, Chronic kidney disease 585.9 and Hyperlipidemia 272.4 [facility] [address], [place] [address] Oct, [facility] [address], [place] [address] Oct, [facility] [address] [facility] [id number] [place] [address] 18 Sep, 2014 [facility] [address] [id number], [place] [address] Sep, [facility] [place] [facility] [address] [facility] [id number] [place] [address] 15 Sep, 2014 Chronic kidney disease 585.9 and Hyperlipidemia 272.4 [facility] [place] [facility] [address] [id number] [place] [address] Sep, [facility] [address] [id number] [place] [address] August, [facility] [address] [id number] [place] [address] August, [facility] [address] [facility] [id number] [place] [address] Jul, [facility] [address] [facility] [id number], [place] [address] Jul, [facility] [address] [id number] [place] [address] Jun, [facility] [address] [facility] [id number], [place] [address] Jun, [facility] [place] [facility] [address] [id number], [place] [address] Jun, [facility] [place] [facility] [address] [id number], [place] [address] Jun, [facility] [place] [facility] [address] [id number] [place] [address] Jun, [facility] [place] [facility] [address] [id number], [place] [address] Jun, [facility] [place] [facility] [address] [facility] [id number] [place] [address] Jun, [facility] [place] [facility] [address] [id number] [place] [address] Jun, [facility] [place] [facility] [address] [id number] [place] [address] May, [facility] [place] [facility] [address] [id number] [place] [address] May, [facility] [place] [facility] [address] [id number] [place] [address] May, [facility] [place] [facility] [address] [id number] [place] [address] May, [facility] [place] [facility] [address] [id number] [place] [address] Apr, [facility] [place] [facility] [address] [id number] [place] [address] Apr, [facility] [place] [facility] [address] [id number] [place] [address] Apr, [facility] [place] [facility] [address] [id number] [place] [address] Apr, [facility] [place] [facility] [address] [id number] [place] [address] Apr, [facility] [place] [facility] [address] [id number] [place] [address] Apr, [facility] [place] [facility] [address] [id number] [place] [address] Apr, [facility] [place] [facility] [address] [id number] [place] [address] Apr, [facility] [place] [facility] [address] [id number] [place] [address] Apr, [facility] [place] [facility] [address] [id number] [place] [address] Apr, [facility] [place] [facility] [address] [id number] [place] [address] Apr, [facility] [place] [facility] [address] [id number] [place] [address] Mar, [facility] [place] [facility] [address] [id number] [place] [address] Mar, [facility] [place] [facility] [address] [id number] [place] [address] Feb, [facility] [place] [facility] [address] [id number] [place] [address] Feb, [facility] [place] [facility] [address] [id number] [place] [address] Feb, [facility] [place] [facility] [address] [id number] [place] [address] Feb, [facility] [place] [facility] [address] [id number] [place] [address] Feb, [facility] [facility] [address] [id number] [place] [address] Feb, [facility] [place] [facility] [address] [id number] [place] [address] Feb, [facility] [place] [facility] [address] [id number] [place] [address] Feb, [facility] [place] [facility] [address] [id number] [place] [address] Feb, [facility] [place] [facility] [address] [id number], [place] [address] Feb, [facility] [place] [facility] [address] [id number] [place] [address] Jan, [facility] [place] [facility] [address] [id number] [place] [address] Jan, [facility] [place] [facility] [address] [id number], [place] [address] Jan, [facility] [place] [facility] [address] [id number], [place] [address] Jan, [facility] [place] [facility] [address] [id number] [place] [address] Jan, [facility] [place] [facility] [address] [id number] [place] [address] Jan, [facility] [place] [facility] [address] [id number] [place] [address] Jan, [facility] [place] [facility] [address] [id number] [place] [address] Jan, [facility] [place] [facility] [address] [id number] [place] [address] 16 Jan, 2014 [facility] [place] [facility] [address] [id number] [place] [address] Jan, [facility] [place] [facility] [address] [id number] [place] [address] Jan, [facility] [place] [facility] [address] [id number] [place] [address] 26 Dec, 2013 [facility] [place] [facility] [address] [id number] [place] [address] 26 Dec, 2013 [facility] [place] [facility] [address] [id number] [place] [address] 19 Dec, 2013 [facility] [place] [address] [id number], [place] [address] 19 Dec, 2013 [facility] [facility] [address] [id number], [place] [address] 18 Dec, 2013 [facility] [place] [facility] [address] [id number] [place] [address] 18 Dec, 2013 [facility] [place] [facility] [address] [id number] [place] [address] 03 Sep, 2013 [facility] [place] [facility] [address] [id number] [place] [address] 03 Sep, 2013 [facility] [place] [facility] [address] [id number] [place] [address] Nov, [facility] [place] [facility] [address] [id number] [place] [address] Nov, [facility] [place] [facility] [address] [id number] [place] [address] Nov, [facility] [place] [facility] [address] [id number] [place] [address] Nov, [facility] [place] [facility] [address] [id number] [place] [address] Nov, [facility] [place] [facility] [address] [id number] [place] [address] Nov, [facility] [place] [facility] [address] [id number] [place] [address] Nov, [facility] [place] [facility] [address] [id number] [place] [address] Nov, [facility] [place] [facility] [address] [id number] [place] [address] Oct, [facility] [place] [facility] [address] [id number] [place] [address] Oct, [facility] [address] [id number] [place] [address] Oct, [facility] [address] [id number] [place] [address] Oct, [facility] [place] [facility] [address] [id number] [place] [address] Sep, [facility] [facility] [address] [id number] [place] [address] Sep, [facility] [address] [id number] [place] [address] Sep, [facility] [place] [facility] [address] [id number] [place] [address] Sep, [facility] [address] [id number] [place] [address] Sep, [facility] [address] [id number] [place] [address] Sep, [facility] [address] [id number] [place] [address] Sep, [facility] [address] [id number] [place] [address] Sep, [facility] [address] [id number] [place] [address] August, [facility] [address] [id number] [place] [address] August, [facility] [address] [id number] [place] [address] August, [facility] [address] [id number] [place] [address] August, [facility] [address] [id number] [place] [address] August, [facility] [address] [id number] [place] [address] August, [facility] [address] [id number] [place] [address] August, [facility] [address] [id number] [place] [address] August, [facility] [address] [id number] [place] [address] August, [facility] [address] [id number] [place] [address] August, [facility] [address] [id number] [place] [address] Jul, [facility] [address] [id number] [place] [address] Jul, [facility] [address] [id number] [place] [address] Jul, [facility] [address] [id number] [place] [address] Jul, [facility] [address] [id number] [place] [address] Jul, [facility] [address] [id number] [place] [address] Jul, [facility] [address] [id number] [place] [address] Jul, [facility] [address] [id number] [place] [address] Jul, [facility] [address] [id number] [place] [address] Jun, [facility] [address] [id number] [place] [address] Jun, [facility] [address] [id number] [place] [address] Jun, [facility] [address] [facility] [id number] [place] [address] Jun, [facility] [address] [id number] [place] [address] Jun, [facility] [address] [id number] [place] [address] Jun, [facility] [address] [id number] [place] [address] May, [facility] [address] [id number] [place] [address] May, [facility] [address] [id number] [place] [address] May, [facility] [address] [id number] [place] [address] May, [facility] [address] [id number] [place] [address] May, [facility] [address] [id number] [place] [address] May, [facility] [address] [id number] [place] [address] May, [facility] [address] [id number] [place] [address] Apr, [facility] [address] [id number] [place] [address] Apr, [facility] [address] [id number] [place] [address] Apr, [facility] [address] [id number] [place] [address] Apr, [facility] [address] [id number] [place] [address] Apr, [facility] [address] [id number] [place] [address] Apr, [facility] [address] [id number] [place] [address] Mar, [facility] [address] [id number] [place] [address] Mar, [facility] [address] [id number] [place] [address] Mar, [facility] [address] [id number] [place] [address] Mar, [facility] [address] [id number] [place] [address] Mar, [facility] [address] [id number], [place] [address] 19 Mar, 2013 [facility] [address] [id number] [place] [address] 16 Mar, 2013 [facility] [address] [id number] [place] [address] 16 Mar, 2013 [facility] [address] [id number] [place] [address] 12 Mar, 2013 [facility] [address] [id number] [place] [address] Mar, [facility] [address] [id number] [place] [address] Feb, [facility] [address] [id number] [place] [address] Feb, [facility] [address] [id number], [place] [address] Feb, [facility] [address] [id number], [place] [address] Feb, [facility] [address] [id number] [place] [address] 14 Feb, 2013 [facility] [address] [facility] [id number], [place] [address] 14 Feb, 2013 [facility] [address] [id number], [place] [address] Feb, [facility] [address] [id number], [place] [address] Feb, [facility] [address] [id number], [place] [address] 08 Feb, 2013 [facility] [address] [id number], [place] [address] 08 Feb, 2013 [facility] [address] [id number], [place] [address] Jan, [facility] [address] [id number] [place] [address] Jan, [facility] [address] [id number] [place] [address] Jan, [facility] [address] [id number] [place] [address] Jan, [facility] [address] [id number] [place] [address] Jan, [facility] [address] [id number] [place] [address] Jan, [facility] [address] [id number] [place] [address] Jan, [facility] [address] [id number] [place] [address] Jan, [facility] [address] [id number] [place] [address] Jan, [facility] [address] [id number] [place] [address] Dec, [facility] [address] [id number] [place] [address] Dec, [facility] [address] [id number] [place] [address] Dec, [facility] [address] [id number] [place] [address] Dec, [facility] [address] [id number] [place] [address] Nov, [facility] [address] [id number] [place] [address] Nov, [facility] [address] [id number] [place] [address] Nov, [facility] [address] [id number] [place] [address] Nov, [facility] [address] [id number] [place] [address] Nov, [facility] [address] [id number] [place] [address] Nov, [facility] [address] [id number] [place] [address] Oct, [facility] [address] [id number] [place] [address] Oct, [facility] [address] [id number] [place] [address] Oct, [facility] [address] [id number] [place] [address] Oct, [facility] [address] [id number] [place] [address] Sep, [facility] [address] [id number] [place] [address] Sep, [facility] [address] [id number] [place] [address] Sep, [facility] [address] [id number] [place] [address] Sep, [facility] [address] [id number], [place] [address] Sep, [facility] [address] [id number], [place] [address] August, [facility] [address] [id number] [place] [address] August, [facility] [address] [id number] [place] [address] Jul, [facility] [address] [id number] [place] [address] Jul, [facility] [address] [id number] [place] [address] 15 Jul, 2012 [facility] [address] [id number] [place] [address] 09 Jul, 2012 [facility] [place] [facility] [address] [id number] [place] [address] 08 Jul, 2012 [facility] [address] [id number] [place] [address] 26 Jun, 2012 [facility] [facility] [address] [id number] [place] [address] Jun, [facility] [address] [id number] [place] [address] 15 Jun, 2012 [facility] [address] [facility] [id number] [place] [address] Jun, [facility] [address] [facility] [id number] [place] [address] Jun, [facility] [address] [facility] [id number] [place] [address] 28 May, 2012 [facility] [address] [id number] [place] [address] 27 May, 2012 [facility] [address] [facility] [id number] [place] [address] 25 May, 2012 [facility] [address] [facility] [id number] [place] [address] 21 May, 2012 [facility] [address] [facility] [id number] [place] [address] 20 May, 2012 [facility] [place] [facility] [address] [id number] [place] [address] 14 May, 2012 [facility] [place] [facility] [address] [facility] [id number] [place] [address] 13 May, 2012 [facility] [place] [facility] [address] [facility] [id number] [place] [address] May, [facility] [address] [id number] [place] [address] May, [facility] [address] [id number] [place] [address] Apr, [facility] [place] [facility] [address] [facility] [id number] [place] [address] Apr, [facility] [place] [facility] [address] [id number] [place] [address] Apr, [facility] [address] [id number] [place] [address] Apr, [facility] [address] [id number] [place] [address] Apr, [facility] [address] [id number] [place] [address] Mar, [facility] [place] [facility] [address] [id number] [place] [address] Mar, [facility] [address] [id number] [place] [address] Mar, [facility] [place] [facility] [address] [id number] [place] [address] Mar, [facility] [place] [facility] [address] [id number] [place] [address] Mar, [facility] [place] [facility] [address] [id number], [place] [address] Mar, [facility] [place] [facility] [address] [id number] [place] [address] Mar, [facility] [place] [facility] [address] [id number] [place] [address] Mar, [facility] [place] [facility] [address] [facility] [id number] [place] [address] Mar, [facility] [place] [facility] [address] [id number] [place] [address] Mar, [facility] [address] [id number] [place] [address] 30 Feb, 2012 [facility] [place] [facility] [address] [id number] [place] [address] Feb, [facility] [place] [facility] [address] [id number] [place] [address] Feb, [facility] [place] [facility] [address] [id number] [place] [address] Feb, [facility] [place] [facility] [address] [id number] [place] [address] Feb, [facility] [place] [facility] [address] [id number] [place] [address] Feb, [facility] [place] [facility] [address] [id number] [place] [address] Feb, [facility] [place] [facility] [address] [id number] [place] [address] Feb, [facility] [place] [facility] [address] [id number] [place] [address] Feb, [facility] [place] [facility] [address] [id number] [place] [address] 16 Feb, 2012 [facility] [place] [facility] [address] [id number] [place] [address] Feb, [facility] [place] [facility] [address] [id number] [place] [address] Feb, [facility] [place] [facility] [address] [id number] [place] [address] Feb, [facility] [place] [facility] [address] [id number] [place] [address] Feb, [facility] [place] [facility] [address] [id number] [place] [address] Feb, [facility] [place] [facility] [address] [id number] [place] [address] 08 Feb, 2012 [facility] [place] [facility] [address] [id number] [place] [address] Feb, [facility] [place] [facility] [address] [id number] [place] [address] Feb, [facility] [place] [facility] [address] [id number] [place] [address] Jan, [facility] [place] [facility] [address] [id number] [place] [address] Jan, [facility] [place] [facility] [address] [id number] [place] [address] Jan, [facility] [place] [facility] [address] [id number] [place] [address] Jan, [facility] [place] [facility] [address] [id number], [place] [address] Jan, [facility] [place] [facility] [address] [id number] [place] [address] Jan, [facility] [place] [facility] [address] [id number], [place] [address] Jan, [facility] [place] [facility] [address] [facility] [id number], [place] [address] Jan, [facility] [place] [facility] [address] [id number], [place] [address] Jan, [facility] [place] [facility] [address] [id number], [place] [address] Jan, [facility] [place] [facility] [address] [id number], [place] [address] 24 Dec, 2011 [facility] [place] [facility] [address] [id number], [place] [address] 18 Dec, 2011 [facility] [place] [facility] [address] [id number], [place] [address] Dec, [facility] [place] [facility] [address] [id number] [place] [address] Dec, [facility] [place] [facility] [address] [id number] [place] [address] Nov, [facility] [place] [facility] [address] [id number] [place] [address] Nov, [facility] [place] [facility] [address] [id number] [place] [address] Nov, [facility] [place] [facility] [address] [id number] [place] [address] Nov, [facility] [place] [facility] [address] [id number] [place] [address] Nov, [facility] [place] [facility] [address] [id number] [place] [address] Nov, [facility] [place] [facility] [address] [id number] [place] [address] Oct, [facility] [place] [facility] [address] [id number] [place] [address] Oct, [facility] [place] [facility] [address] [id number] [place] [address] Oct, [facility] [place] [facility] [address] [id number] [place] [address] Oct, [facility] [place] [facility] [address] [id number] [place] [address] Oct, [facility] [place] [facility] [address] [id number] [place] [address] Sep, [facility] [place] [facility] [address] [id number] [place] [address] Sep, [facility] [place] [facility] [address] [id number] [place] [address] Sep, [facility] [place] [facility] [address] [id number] [place] [address] 07 Sep, 2011 [facility] [address] [id number] [place] [address] Sep, [facility] [place] [facility] [address] [id number] [place] [address] August, [facility] [address] [id number] [place] [address] August, [facility] [address] [id number] [place] [address] August, [facility] [address] [id number] [place] [address] August, [facility] [address] [id number] [place] [address] Jul, [facility] [address] [id number] [place] [address] Jul, [facility] [address] [id number] [place] [address] Jul, [facility] [address] [id number] [place] [address] Jul, [facility] [address] [id number] [place] [address] Jul, [facility] [place] [facility] [address] [id number] [place] [address] 12 Jul, 2011 [facility] [place] [facility] [address] [id number] [place] [address] 11 Jul, 2011 [facility] [place] [facility] [address] [id number] [place] [address] 10 Jul, 2011 [facility] [place] [facility] [address] [id number] [place] [address] 09 Jul, 2011 [facility] [place] [facility] [address] [id number] [place] [address] Jul, [facility] [address] [id number] [place] [address] 05 Jul, 2011 [facility] [place] [facility] [address] [id number] [place] [address] Jul, [facility] [place] [facility] [address] [id number] [place] [address] Jul, [facility] [place] [facility] [address] [id number] [place] [address] Jul, [facility] [place] [facility] [address] [id number] [place] [address] Jun, [facility] [place] [facility] [address] [id number] [place] [address] Jun, [facility] [place] [facility] [address] [id number] [place] [address] Jun, [facility] [place] [facility] [address] [id number] [place] [address] Jun, [facility] [place] [facility] [address] [id number] [place] [address] May, [facility] [place] [facility] [address] [id number] [place] [address] May, [facility] [place] [facility] [address] [id number] [place] [address] May, [facility] [place] [facility] [address] [id number] [place] [address] Apr, [facility] [place] [facility] [address] [id number] [place] [address] Apr, [facility] [place] [facility] [address] [id number] [place] [address] 13 Apr, 2011 [facility] [place] [facility] [address] [id number] [place] [address] Apr, [facility] [place] [facility] [address] [id number] [place] [address] 09 Apr, 2011 [facility] [address] [id number] [place] [address] Mar, [facility] [place] [facility] [address] [id number] [place] [address] Mar, [facility] [place] [facility] [address] [id number] [place] [address] Mar, [facility] [place] [facility] [address] [id number] [place] [address] Mar, [facility] [place] [facility] [address] [id number] [place] [address] Mar, [facility] [place] [facility] [address] [id number] [place] [address] Mar, [facility] [place] [facility] [address] [id number] [place] [address] Mar, [facility] [place] [facility] [address] [id number] [place] [address] Feb, [facility] [place] [facility] [address] [id number] [place] [address] 25 Feb, 2011 [facility] [place] [facility] [address] [id number] [place] [address] Feb, [facility] [place] [facility] [address] [id number] [place] [address] Feb, [facility] [place] [facility] [address] [id number] [place] [address] 16 Feb, 2011 [facility] [place] [facility] [address] [id number] [place] [address] 14 Feb, 2011 [facility] [place] [facility] [address] [id number] [place] [address] 10 Feb, 2011 [facility] [place] [facility] [address] [id number] [place] [address] 31 Jan, 2011 [facility] [place] [facility] [address] [id number] [place] [address] 31 Jan, 2011 [facility] [address] [id number] [place] [address] 31 Jan, 2011 [facility] [place] [facility] [address] [id number] [place] [address] 18 Jan, 2011 [facility] [place] [facility] [address] [id number] [place] [address] 17 Jan, 2011 [facility] [address] [id number] [place] [address] 17 Jan, 2011 [facility] [address] [id number] [place] [address] 17 Jun, 2010 [facility] [address] [id number] [place] [address] 30 Mar, 2010 [facility] [address] [id number] [place] [address] 20 Mar, 2010 [facility] [address] [id number] [place] [address] 14 Mar, 2010 [facility] [place] [facility] [address] [id number] [place] [address] 14 Mar, 2010 [facility] [place] [facility] [address] [id number] [place] [address] 13 Mar, 2010 [facility] [place] [facility] [address] [id number] [place] [address] 07 Mar, 2010 [facility] [place] [facility] [address] [id number] [place] [address] 02 Mar, 2010 [facility] [place] [facility] [address] [id number] [place] [address] Mar, [facility] [place] [facility] [address] [id number] [place] [address] 30 Feb, 2010 [facility] [place] [facility] [address] [id number], [place] [address] 29 Feb, 2010 [facility] [place] [facility] [address] [id number] [place] [address] 17 Feb, 2010 [facility] [place] [facility] [address] [id number] [place] [address] 17 Feb, 2010 [facility] [place] [facility] [address] [id number] [place] [address] 16 Feb, 2010 [facility] [place] [facility] [address] [id number] [place] [address] 08 Feb, 2010 [facility] [place] [facility] [address] [id number] [place] [address] 04 Feb, 2010 [facility] [place] [facility] [address] [id number] [place] [address] Feb, [facility] [place] [facility] [address] [id number] [place] [address] Jan, [facility] [place] [facility] [address] [id number] [place] [address] Jan, [facility] [place] [facility] [address] [id number] [place] [address] 25 Jan, 2010 [facility] [place] [facility] [address] [id number] [place] [address] Jan, [facility] [place] [facility] [address] [id number], [place] [address] 29 Mar, 2009 [facility] [place] [facility] [address] [id number], [place] [address] 22 Mar, 2009 [facility] [place] [facility] [address] [id number] [place] [address] 19 Mar, 2009 [facility] [place] [facility] [address] [id number] [place] [address] 19 Mar, 2009 [facility] [place] [facility] [address] [id number] [place] [address] 14 Mar, 2009 [facility] [place] [facility] [address] [facility] [id number] [place] [address] Mar, [facility] [address] [id number] [address] Feb, [facility] [address] [id number], [place] [address] Feb, [facility] [address] [id number], [place] [address] Jan, [facility] [address] [id number] [address] Sep, [facility] [address] [id number], [place] [address] May, IMMUNIZATIONS No Known Immunizations SOCIAL HISTORY Never Assessed REASON FOR VISIT [place] [place] VITAL SIGNS MEDICATIONS Unknown [...] Surgical History Left ear surgery Hospitalization History [facility] in [place]- Spontaneous Pneumothorax Hospitalization History [facility]- Colon resection Hospitalization History via [facility] - diarrhea/ couldnt urinate nov 2017
--- OUTSIDE RECORDS SUMMARY | 2018-10-15 01:04 | XMS REPORT ---
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 Outside Name Role Phone Migration, Doctor Unavailable Unavailable PROBLEMS Type Condition ICD9-CM Code SCO45-RC Code Onset Dates Condition Status SNOMED Code Problem Constipation K59.00 Active 63007923 Problem Chronic pain G89.29 Active 90243231 Problem Hyperlipidemia E78.5 Active 11546949 Problem Insomnia G47.00 Active 512437472 Problem Chronic kidney disease, stage III (moderate) N18.3 Active 540528290 Problem Anxiety F41.9 Active 82248011 Problem Vision loss H54.7 Active 017901696 Problem HTN (hypertension) I10 Active 20101721 Problem Thoracic back pain, unspecified back pain laterality, unspecified chronicity M54.6 Active 430057390 Problem Vitamin D deficiency E55.9 Active 38421037 Problem Environmental allergies Z91.09 Active 964667510 Problem Primary insomnia F51.01 Active 7699094 ALLERGIES No Information ENCOUNTERS Encounter Location Date Diagnosis [place] [address] [address] Jul, [place] [address] [address] Jul, Thoracic back pain, unspecified back pain laterality, unspecified chronicity M54.6 [place] [address] [place] [id number] [place] [address] Jun, Anxiety F41.9 and Thoracic back pain, unspecified back pain laterality, unspecified chronicity M54.6 [place] [address] [address] Jun, Anxiety F41.9 and Thoracic back pain, unspecified back pain laterality, unspecified chronicity M54.6 [place] [address] [address] Jun, Thoracic back pain, unspecified back pain laterality, unspecified chronicity M54.6 [place] [address] [place] [id number] [place] [address] Jun, Anxiety F41.9 and Thoracic back pain, unspecified back pain laterality, unspecified chronicity M54.6 [place] [address] [address] May, [place] [address] [address] May, [place] [address] [address] May, [place] [address] [address] May, Anxiety F41.9 and Encounter for medication monitoring Z51.81 [place] [address] [address] May, Anxiety F41.9 and Thoracic back pain, unspecified back pain laterality, unspecified chronicity M54.6 [place] [address] [address] Apr, Hyperlipidemia 272.4 [place] [address] [place] [id number] [place] [address] Apr, Chronic pain G89.29 ; Anxiety F41.9 ; Cervical radiculopathy M54.12 and Vision loss H54.7 [place] [address] [place] [id number] [place] [address] Apr, [place] [address] [address] Apr, Anxiety F41.9 and Thoracic back pain, unspecified back pain laterality, unspecified chronicity M54.6 [place] [address] [place] [id number] [place] [address] Mar, [facility] [id number] [place] [address] 10 Mar, 2018 Anxiety F41.9 and Thoracic back pain, unspecified back pain laterality, unspecified chronicity M54.6 [place] [address] [place] [id number] [place] [address] 14 Feb, 2018 Anxiety F41.9 and Thoracic back pain, unspecified back pain laterality, unspecified chronicity M54.6 [place] [address] [place] [id number] [place] [address] 07 Feb, 2018 Thoracic back pain, unspecified back pain laterality, unspecified chronicity M54.6 [place] [address] [place] [id number] [place] [address] 29 Jan, 2018 [place] [address] [place] [id number] [place] [address] 16 Jan, 2018 Anxiety F41.9 and Thoracic back pain, unspecified back pain laterality, unspecified chronicity M54.6 [place] [address] [place] [id number] [place] [address] 19 Dec, 2017 Diarrhea of presumed infectious origin R19.7 [place] [address] [place] [id number] [place] [address] 19 Dec, 2017 Diarrhea of presumed infectious origin R19.7 [place] [address] [place] [id number] [place] [address] 18 Dec, 2017 Thoracic back pain, unspecified back pain laterality, unspecified chronicity M54.6 [place] [address] [place] [id number] [place] [address] 17 Dec, 2017 [place] [address] [place] [id number] [place] [address] 17 Dec, 2017 Anxiety F41.9 and Thoracic back pain, unspecified back pain laterality, unspecified chronicity M54.6 [place] [address] [place] [id number] [place] [address] Dec, Diarrhea of presumed infectious origin R19.7 [place] [address] [address] Dec, [place] [id number] [place] [address] Dec, Anxiety F41.9 and Thoracic back pain, unspecified back pain laterality, unspecified chronicity M54.6 [place] [id number] [place] [address] Dec, Anxiety F41.9 and Thoracic back pain, unspecified back pain laterality, unspecified chronicity M54.6 [facility] [employer] [address] [place] [id number] Dec, Diarrhea of presumed infectious origin R19.7 ; Anxiety F41.9 ; Thoracic back pain, unspecified back pain laterality, unspecified chronicity M54.6 and HTN (hypertension) I10 [place] [id number] [place] [address] Dec, Anxiety F41.9 [facility] [employer] [address] [place] [id number] Dec, Anxiety F41.9 ; Diarrhea of presumed infectious origin R19.7 ; Generalized abdominal pain R10.84 and Localized edema R60.[id number] [place] [address] Nov, [facility] [employer] [address] [place] [id number] Nov, Anxiety F41.9 ; Urinary retention R33.9 ; Diarrhea of presumed infectious origin R19.7 ; Weakness R53.1 ; Acute kidney failure, unspecified N17.9 ; Chronic kidney disease, stage III (moderate) N18.3 and Thoracic back pain, unspecified back pain laterality, unspecified chronicity M54.6 [address] [address] Oct, Thoracic back pain, unspecified back pain laterality, unspecified chronicity M54.6 and Anxiety F41.9 [place] [address] [address] Sep, Thoracic back pain, unspecified back pain laterality, unspecified chronicity M54.6 and Anxiety F41.9 [facility] [address] [place] [id number] [place] [address] 04 Sep, 2017 Thoracic back pain, unspecified back pain laterality, unspecified chronicity M54.6 ; Anxiety F41.9 and Encounter for medication monitoring Z51.81 [place] [address] [place] [id number] [place] [address] August, [place] [address] [address] August, Thoracic back pain, unspecified back pain laterality, unspecified chronicity M54.6 and Anxiety F41.9 [place] [address] [place] [id number] [place] [address] August, Hyperlipidemia E78.5 and HTN (hypertension) I10 [place] [address] [place] [id number] [place] [address] August, [place] [address] [place] [id number] [place] [address] August, Medicare welcome exam Z00.00 ; Chronic kidney failure N18.9 ; Anxiety F41.9 ; Chronic pain G89.29 ; Insomnia G47.00 ; Hyperlipidemia E78.5 ; HTN (hypertension) I10 and Thoracic back pain, unspecified back pain laterality, unspecified chronicity M54.6 [place] [id number] [place] [address] Jul, [place] [address] [place] [id number] [place] [address] Jul, [place] [id number] [place] [address] Jul, [place] [address] [place] [id number] [place] [address] Jul, Anxiety F41.9 [place] [address] [place] [id number] [place] [address] Jul, Thoracic back pain, unspecified back pain laterality, unspecified chronicity M54.6 and Anxiety F41.9 [place] [address] [place] [id number] [place] [address] Jun, Thoracic back pain, unspecified back pain laterality, unspecified chronicity M54.6 and Anxiety F41.9 [place] [address] [place] [id number] [place] [address] May, Thoracic back pain, unspecified back pain laterality, unspecified chronicity M54.6 and Anxiety F41.9 [place] [address] [place] [id number] [place] [address] Apr, Thoracic back pain, unspecified back pain laterality, unspecified chronicity M54.6 and Anxiety F41.9 [place] [address] [place] [id number] [place] [address] Mar, [place] [address] [address] Mar, Thoracic back pain, unspecified back pain laterality, unspecified chronicity M54.6 and Anxiety F41.9 [place] [address] [place] [id number] [place] [address] Mar, Thoracic back pain, unspecified back pain laterality, unspecified chronicity M54.6 ; HTN (hypertension) I10 ; Hyperlipidemia E78.5 and Anxiety F41.9 [place] [address] [place] [id number] [place] [address] Feb, Thoracic back pain, unspecified back pain laterality, unspecified chronicity M54.6 and Anxiety F41.9 [place] [address] [place] [id number] [place] [address] Nov, [place] [address] [address] Oct, [facility] [address] [place] [id number] [place] [address] Oct, Thoracic back pain, unspecified back pain laterality, unspecified chronicity M54.6 [facility] [address] [place] [id number] [place] [address] Oct, HTN (hypertension) I10 ; Constipation K59.00 ; Hyperlipidemia E78.5 ; Thoracic back pain, unspecified back pain laterality, unspecified chronicity M54.6 ; Chronic pain G89.29 ; Anxiety F41.9 ; Chronic kidney failure N18.9 ; Environmental allergies Z91.09 ; Vitamin D deficiency E55.9 and Primary insomnia F51.01 [facility] [address] [place] [id number] [place] [address] Sep, Anxiety F41.9 [facility] [address] [place] [id number] [place] [address] Sep, [facility] [address] [place] [id number] [place] [address] August, Anxiety F41.9 [facility] [address] [place] [id number] [place] [address] August, [facility] [address] [place] [id number] [place] [address] Jul, Anxiety F41.9 [facility] [address] [place] [id number] [place] [address] Jul, [facility] [address] [place] [id number] [place] [address] Jun, Anxiety F41.9 [facility] [address] [place] [id number] [place] [address] Jun, [facility] [address] [place] [id number] [place] [address] May, [facility] [address] [place] [address] May, [facility] [id number] [place] [address] May, [facility] [id number] [place] [address] Apr, [facility] [id number] [place] [address] Apr, [facility] [address] [place] [id number] [place] [address] Apr, Anxiety F41.9 [facility] [address] [place] [id number] [place] [address] Apr, Anxiety F41.9 [facility] [address] [place] [id number] [place] [address] Apr, [facility] [address] [place] [id number] [place] [address] Mar, HTN (hypertension) I10 ; Tremor R25.1 ; Hypercholesterolemia E78.0 ; Constipation K59.00 ; Chronic pain G89.29 ; Hyperlipidemia E78.5 ; Insomnia G47.00 ; Anxiety F41.9 and Thoracic back pain, unspecified back pain laterality, unspecified chronicity M54.6 [facility] [address] [address] Mar, Tremor R25.1 ; HTN (hypertension) I10 ; Hypercholesterolemia E78.0 ; Constipation K59.00 ; Chronic pain G89.29 ; Hyperlipidemia E78.5 ; Insomnia G47.00 ; Anxiety F41.9 and Thoracic back pain, unspecified back pain laterality, unspecified chronicity M54.6 [facility] [id number] [place] [address] Mar, [facility] [id number] [place] [address] Mar, [facility] [address] [place] [id number] [address] Feb, [facility] [address], [place] [address] Jan, [facility] [address], [place] [address] Jan, [facility] [id number] [place] [address] Dec, [facility] [id number] [place] [address] Nov, [facility] [id number] [place] [address] Nov, [facility] [id number] [place] [address] Oct, Anxiety F41.9 [facility] [address] [place] [id number] [place] [address] Oct, Chronic pain G89.29 [facility] [address], [place] [address] Sep, [facility] [id number] [place] [address] Sep, [facility] [address], [place] [address] Sep, [facility] [address], [place] [address] Sep, [facility] [address], [place] [address] 16 Sep, 2015 Chronic pain syndrome G89.4 [facility] [address], [place] [address] Sep, HTN (hypertension) I10 ; Chronic pain G89.29 ; Hypercholesterolemia E78.0 ; Chronic kidney failure N18.9 ; Constipation, unspecified constipation type K59.00 ; Anxiety F41.9 and Thoracic back pain, unspecified back pain laterality, unspecified chronicity M54.6 [facility] [address] [place] [id number] [place] [address] August, Chronic pain syndrome G89.4 [facility] [address] [place] [id number] [place] [address] August, Chronic pain syndrome G89.4 [facility] [address] [place] [id number] [place] [address] Jul, Anxiety disorder, unspecified F41.9 and Chronic pain syndrome G89.4 [facility] [address] [place] [id number] [place] [address] Jul, Insomnia, unspecified G47.00 and Chronic pain syndrome G89.4 [facility] [address] [place] [id number] [place] [address] Jul, Allergic rhinitis J30.9 [facility] [address] [place] [id number] [place] [address] Jul, Constipation, unspecified K59.00 [facility] [address] [place] [id number] [place] [address] Jul, [facility] [address] [place] [id number] [place] [address] Jun, [facility] [id number] [place] [address] Jun, [facility] [address] [place] [id number] [place] [address] Jun, [facility] [address] [place] [id number] [place] [address] Jun, [facility] [address] [place] [id number] [place] [address] Jun, [facility] [address] [place] [id number] [place] [address] Jun, [facility] [address] [place] [id number] [place] [address] May, [facility] [address] [place] [id number] [place] [address] May, [facility] [address] [place] [id number] [place] [address] May, Anxiety F41.9 ; Insomnia G47.00 ; Hyperlipidemia E78.5 ; Chronic pain G89.29 ; HTN (hypertension) I10 ; Environmental allergies V15.09 and Constipation 564.00 [facility] [address] [place] [id number] [place] [address] Apr, [facility] [address] [place] [id number] [place] [address] Apr, [facility] [address] [place] [id number] [place] [address] Apr, [facility] [address] [place] [id number] [place] [address] Mar, [facility] [address] [place] [id number] [place] [address] Mar, [facility] [address] [place] [id number] [place] [address] Mar, [facility] [address] [place] [id number] [place] [address] Feb, [facility] [id number] [place] [address] Feb, [facility] [address] [place] [id number] [place] [address] Feb, [facility] [address] [place] [id number] [place] [address] 15 Jan, 2015 HTN (hypertension) I10 ; Constipation K59.00 ; Chronic pain G89.29 ; Hyperlipidemia E78.5 ; Hypercholesterolemia E78.0 ; Insomnia G47.00 and Anxiety F41.9 [facility] [address], [place] [address] Jan, [facility] [address], [place] [address] Dec, [facility] [address], [place] [address] Nov, [facility] [address] [place] [id number] [place] [address] Oct, Chronic kidney disease, unspecified 585.9 ; Chronic pain syndrome 338.4 ; Hyperlipidemia 272.4 and Essential hypertension 401.9 [facility] [address] [place] [id number] [place] [address] Oct, Chronic kidney disease 585.9 [facility] [address], [place] [address] Oct, [facility] [id number] [place] [address] Oct, Chronic kidney disease, unspecified 585.9 ; Hypercalcemia 275.42 ; Hyperlipidemia 272.4 ; Essential hypertension 401.9 ; Chronic pain syndrome 338.4 ; Insomnia 780.52 ; Constipation 564.00 ; Environmental allergies V15.09 and Anxiety 300.00 [facility] [address], [place] [address] Oct, Chronic kidney disease 585.9 [facility] [address], [place] [address] Oct, [facility] [address], [place] [address] Oct, Chronic kidney disease 585.9 and Hyperlipidemia 272.4 [facility] [address], [place] [address] Oct, [facility] [address], [place] [address] Oct, [facility] [address] [facility] [id number] [place] [address] 18 Sep, 2014 [facility] [address] [id number] [address] Sep, [facility] [place] [facility] [address] [facility] [id number] [place] [address] 15 Sep, 2014 Chronic kidney disease 585.9 and Hyperlipidemia 272.4 [facility] [place] [facility] [address] [id number] [place] [address] Sep, [facility] [address] [id number] [place] [address] August, [facility] [address] [id number] [place] [address] August, [facility] [address] [facility] [id number] [place] [address] Jul, [facility] [address] [facility] [id number], [place] [address] Jul, [facility] [address] [id number] [place] [address] Jun, [facility] [address] [facility] [id number], [place] [address] Jun, [facility] [place] [facility] [address] [id number], [place] [address] Jun, [facility] [place] [facility] [address] [id number], [place] [address] Jun, [facility] [place] [facility] [address] [id number] [place] [address] Jun, [facility] [place] [facility] [address] [id number], [place] [address] Jun, [facility] [place] [facility] [address] [facility] [id number] [place] [address] Jun, [facility] [place] [facility] [address] [id number] [place] [address] Jun, [facility] [place] [facility] [address] [id number] [place] [address] May, [facility] [place] [facility] [address] [id number] [place] [address] May, [facility] [place] [facility] [address] [id number] [place] [address] May, [facility] [place] [facility] [address] [id number] [place] [address] May, [facility] [place] [facility] [address] [id number] [place] [address] Apr, [facility] [place] [facility] [address] [id number] [place] [address] Apr, [facility] [place] [facility] [address] [id number] [place] [address] Apr, [facility] [place] [facility] [address] [id number] [place] [address] Apr, [facility] [place] [facility] [address] [id number] [place] [address] Apr, [facility] [place] [facility] [address] [id number] [place] [address] Apr, [facility] [place] [facility] [address] [id number] [place] [address] Apr, [facility] [place] [facility] [address] [id number] [place] [address] Apr, [facility] [place] [facility] [address] [id number] [place] [address] Apr, [facility] [place] [facility] [address] [id number] [place] [address] Apr, [facility] [place] [facility] [address] [id number] [place] [address] Apr, [facility] [place] [facility] [address] [id number] [place] [address] Mar, [facility] [place] [facility] [address] [id number] [place] [address] Mar, [facility] [place] [facility] [address] [id number] [place] [address] Feb, [facility] [place] [facility] [address] [id number] [place] [address] Feb, [facility] [place] [facility] [address] [id number] [place] [address] Feb, [facility] [place] [facility] [address] [id number] [place] [address] Feb, [facility] [place] [facility] [address] [id number] [place] [address] Feb, [facility] [place] [facility] [address] [id number] [place] [address] Feb, [facility] [place] [facility] [address] [id number] [place] [address] Feb, [facility] [place] [facility] [address] [id number] [place] [address] Feb, [facility] [place] [facility] [address] [id number] [place] [address] Feb, [facility] [place] [facility] [address] [id number], [place] [address] Feb, [facility] [place] [facility] [address] [id number] [place] [address] Jan, [facility] [place] [facility] [address] [id number] [place] [address] Jan, [facility] [place] [facility] [address] [id number], [place] [address] Jan, [facility] [place] [facility] [address] [id number] [address] Jan, [facility] [place] [facility] [address] [id number] [place] [address] Jan, [facility] [place] [facility] [address] [id number] [place] [address] Jan, [facility] [place] [facility] [address] [id number] [place] [address] Jan, [facility] [place] [facility] [address] [id number] [place] [address] Jan, [facility] [place] [facility] [address] [id number] [place] [address] 16 Jan, 2014 [facility] [place] [facility] [address] [id number] [place] [address] Jan, [facility] [place] [facility] [address] [id number] [place] [address] Jan, [facility] [place] [facility] [address] [id number] [place] [address] 26 Dec, 2013 [facility] [place] [facility] [address] [id number] [place] [address] 26 Dec, 2013 [facility] [place] [facility] [address] [id number] [place] [address] 19 Dec, 2013 [facility] [place] [facility] [address] [id number], [place] [address] 19 Dec, 2013 [facility] [place] [facility] [address] [id number], [place] [address] 18 Dec, 2013 [facility] [place] [facility] [address] [id number] [place] [address] 18 Dec, 2013 [facility] [place] [facility] [address] [id number] [place] [address] 03 Sep, 2013 [facility] [place] [facility] [address] [id number] [place] [address] 03 Sep, 2013 [facility] [place] [facility] [address] [id number] [place] [address] Nov, [facility] [place] [facility] [address] [id number] [place] [address] Nov, [facility] [place] [facility] [address] [id number] [place] [address] Nov, [facility] [place] [facility] [address] [id number] [place] [address] Nov, [facility] [place] [facility] [address] [id number] [place] [address] Nov, [facility] [place] [facility] [address] [id number] [place] [address] Nov, [facility] [place] [facility] [address] [id number] [place] [address] Nov, [facility] [place] [facility] [address] [id number] [place] [address] Nov, [facility] [place] [facility] [address] [id number] [place] [address] Oct, [facility] [place] [facility] [address] [id number] [place] [address] Oct, [facility] [place] [facility] [address] [id number] [place] [address] Oct, [facility] [place] [facility] [address] [id number] [place] [address] Oct, [facility] [place] [facility] [address] [id number] [place] [address] Sep, [facility] [place] [facility] [address] [id number] [place] [address] Sep, [facility] [place] [facility] [address] [id number] [place] [address] Sep, [facility] [place] [facility] [address] [id number] [place] [address] Sep, [facility] [place] [facility] [address] [id number] [place] [address] Sep, [facility] [place] [facility] [address] [id number] [place] [address] Sep, [facility] [place] [facility] [address] [id number] [place] [address] Sep, [facility] [place] [facility] [address] [id number] [place] [address] Sep, [facility] [place] [facility] [address] [id number] [place] [address] August, [facility] [place] [facility] [address] [id number] [place] [address] August, [facility] [place] [facility] [address] [id number] [place] [address] August, [facility] [place] [facility] [address] [id number] [place] [address] August, [facility] [place] [facility] [address] [id number] [place] [address] August, [facility] [place] [facility] [address] [id number] [place] [address] August, [facility] [place] [facility] [address] [id number] [place] [address] August, [facility] [place] [facility] [address] [id number] [place] [address] August, [facility] [place] [facility] [address] [id number] [place] [address] August, [facility] [place] [facility] [address] [id number] [place] [address] August, [facility] [place] [facility] [address] [id number] [place] [address] Jul, [facility] [place] [facility] [address] [id number] [place] [address] Jul, [facility] [place] [facility] [address] [id number] [place] [address] Jul, [facility] [place] [facility] [address] [id number] [place] [address] Jul, [facility] [place] [facility] [address] [id number] [place] [address] Jul, [facility] [place] [facility] [address] [id number] [place] [address] Jul, [facility] [place] [facility] [address] [id number] [place] [address] Jul, [facility] [place] [facility] [address] [id number] [place] [address] Jul, [facility] [place] [facility] [address] [id number] [place] [address] Jun, [facility] [place] [facility] [address] [id number] [place] [address] Jun, [facility] [place] [facility] [address] [id number] [place] [address] Jun, [facility] [place] [facility] [address] [facility] [id number] [place] [address] Jun, [facility] [place] [facility] [address] [id number] [place] [address] Jun, [facility] [place] [facility] [address] [id number] [place] [address] Jun, [facility] [place] [facility] [address] [id number] [place] [address] May, [facility] [place] [facility] [address] [id number] [place] [address] May, [facility] [place] [facility] [address] [id number] [place] [address] May, [facility] [place] [facility] [address] [id number] [place] [address] May, [facility] [place] [facility] [address] [id number] [place] [address] May, [facility] [place] [facility] [address] [id number] [place] [address] May, [facility] [place] [facility] [address] [id number] [place] [address] May, [facility] [place] [facility] [address] [id number] [place] [address] Apr, [facility] [place] [facility] [address] [id number] [place] [address] Apr, [facility] [place] [facility] [address] [id number] [place] [address] Apr, [facility] [place] [facility] [address] [id number] [place] [address] Apr, [facility] [place] [facility] [address] [id number] [place] [address] Apr, [facility] [place] [facility] [address] [id number] [place] [address] Apr, [facility] [place] [facility] [address] [id number] [place] [address] Mar, [facility] [place] [facility] [address] [id number] [place] [address] Mar, [facility] [place] [facility] [address] [id number] [place] [address] Mar, [facility] [place] [facility] [address] [id number] [place] [address] Mar, [facility] [place] [facility] [address] [id number] [place] [address] Mar, [facility] [place] [facility] [address] [id number], [place] [address] 19 Mar, 2013 [facility] [address] [id number] [place] [address] 16 Mar, 2013 [facility] [place] [facility] [address] [id number] [place] [address] 16 Mar, 2013 [facility] [address] [id number] [place] [address] 12 Mar, 2013 [facility] [place] [facility] [address] [id number] [place] [address] Mar, [facility] [address] [id number] [place] [address] Feb, [facility] [place] [facility] [address] [id number] [place] [address] Feb, [facility] [address] [id number], [place] [address] Feb, [facility] [place] [facility] [address] [id number], [place] [address] Feb, [facility] [address] [id number] [place] [address] 14 Feb, 2013 [facility] [place] [facility] [address] [facility] [id number], [place] [address] 14 Feb, 2013 [facility] [address] [id number], [place] [address] Feb, [facility] [place] [facility] [address] [id number], [place] [address] Feb, [facility] [place] [facility] [address] [id number], [place] [address] 08 Feb, 2013 [facility] [place] [facility] [address] [id number], [place] [address] 08 Feb, 2013 [facility] [place] [facility] [address] [id number], [place] [address] Jan, [facility] [place] [facility] [address] [id number] [place] [address] Jan, [facility] [place] [facility] [address] [id number] [place] [address] Jan, [facility] [place] [facility] [address] [id number] [place] [address] Jan, [facility] [place] [facility] [address] [id number] [place] [address] Jan, [facility] [place] [facility] [address] [id number] [place] [address] Jan, [facility] [place] [facility] [address] [id number] [place] [address] Jan, [facility] [place] [facility] [address] [id number] [place] [address] Jan, [facility] [place] [facility] [address] [id number] [place] [address] Jan, [facility] [place] [facility] [address] [id number] [place] [address] Dec, [facility] [place] [facility] [address] [id number] [place] [address] Dec, [facility] [place] [facility] [address] [id number] [place] [address] Dec, [facility] [place] [facility] [address] [id number] [place] [address] Dec, [facility] [place] [facility] [address] [id number] [place] [address] Nov, [facility] [place] [facility] [address] [id number] [place] [address] Nov, [facility] [place] [facility] [address] [id number] [place] [address] Nov, [facility] [place] [facility] [address] [id number] [place] [address] Nov, [facility] [address] [id number] [place] [address] Nov, [facility] [place] [facility] [address] [id number] [place] [address] Nov, [facility] [place] [facility] [address] [id number] [place] [address] Oct, [facility] [place] [facility] [address] [id number] [place] [address] Oct, [facility] [place] [facility] [address] [id number] [place] [address] Oct, [facility] [place] [facility] [address] [id number] [place] [address] Oct, [facility] [place] [facility] [address] [id number] [place] [address] Sep, [facility] [place] [facility] [address] [id number] [place] [address] Sep, [facility] [place] [facility] [address] [id number] [place] [address] Sep, [facility] [place] [facility] [address] [id number] [place] [address] Sep, [facility] [place] [facility] [address] [id number], [place] [address] Sep, [facility] [place] [facility] [address] [id number], [place] [address] August, [facility] [place] [facility] [address] [id number] [place] [address] August, [facility] [place] [facility] [address] [id number] [place] [address] Jul, [facility] [place] [facility] [address] [id number] [place] [address] Jul, [facility] [place] [facility] [address] [id number] [place] [address] 15 Jul, 2012 [facility] [address] [id number] [place] [address] 09 Jul, 2012 [facility] [place] [facility] [address] [id number] [place] [address] 08 Jul, 2012 [facility] [address] [id number] [place] [address] 26 Jun, 2012 [facility] [place] [facility] [address] [id number] [place] [address] Jun, [facility] [address] [id number] [place] [address] 15 Jun, 2012 [facility] [address] [facility] [id number] [place] [address] Jun, [facility] [address] [facility] [id number] [place] [address] Jun, [facility] [address] [facility] [id number] [place] [address] 28 May, 2012 [facility] [address] [id number] [place] [address] 27 May, 2012 [facility] [address] [facility] [id number] [place] [address] 25 May, 2012 [facility] [place] [facility] [address] [facility] [id number] [place] [address] 21 May, 2012 [facility] [address] [facility] [id number] [place] [address] 20 May, 2012 [facility] [place] [facility] [address] [id number] [place] [address] 14 May, 2012 [facility] [place] [facility] [address] [facility] [id number] [place] [address] 13 May, 2012 [facility] [place] [facility] [address] [facility] [id number] [place] [address] May, [facility] [address] [id number] [place] [address] May, [facility] [address] [id number] [place] [address] Apr, [facility] [place] [facility] [address] [facility] [id number] [place] [address] Apr, [facility] [place] [facility] [address] [id number] [place] [address] Apr, [facility] [address] [id number] [place] [address] Apr, [facility] [address] [id number] [place] [address] Apr, [facility] [address] [id number] [place] [address] Mar, [facility] [place] [facility] [address] [id number] [place] [address] Mar, [facility] [address] [id number] [place] [address] Mar, [facility] [place] [facility] [address] [id number] [place] [address] Mar, [facility] [place] [facility] [address] [id number] [place] [address] Mar, [facility] [place] [facility] [address] [id number], [place] [address] Mar, [facility] [place] [facility] [address] [id number] [place] [address] Mar, [facility] [place] [facility] [address] [id number] [place] [address] Mar, [facility] [place] [facility] [address] [facility] [id number] [place] [address] Mar, [facility] [place] [facility] [address] [id number] [place] [address] Mar, [facility] [address] [id number] [place] [address] 30 Feb, 2012 [facility] [place] [facility] [address] [id number] [place] [address] Feb, [facility] [place] [facility] [address] [id number] [place] [address] Feb, [facility] [place] [facility] [address] [id number] [place] [address] Feb, [facility] [place] [facility] [address] [id number] [place] [address] Feb, [facility] [place] [facility] [address] [id number] [place] [address] Feb, [facility] [place] [facility] [address] [id number] [place] [address] Feb, [facility] [place] [facility] [address] [id number] [place] [address] Feb, [facility] [place] [facility] [address] [id number] [place] [address] Feb, [facility] [place] [facility] [address] [id number] [place] [address] 16 Feb, 2012 [facility] [place] [facility] [address] [id number] [place] [address] Feb, [facility] [place] [facility] [address] [id number] [place] [address] Feb, [facility] [place] [facility] [address] [id number] [place] [address] Feb, [facility] [place] [facility] [address] [id number] [place] [address] Feb, [facility] [place] [facility] [address] [id number] [place] [address] Feb, [facility] [place] [facility] [address] [id number] [place] [address] 08 Feb, 2012 [facility] [place] [facility] [address] [id number] [place] [address] Feb, [facility] [place] [facility] [address] [id number] [place] [address] Feb, [facility] [place] [facility] [address] [id number] [place] [address] Jan, [facility] [place] [facility] [address] [id number] [place] [address] Jan, [facility] [place] [facility] [address] [id number] [place] [address] Jan, [facility] [place] [facility] [address] [id number] [place] [address] Jan, [facility] [place] [facility] [address] [id number] [address] Jan, [facility] [place] [facility] [address] [id number] [place] [address] Jan, [facility] [place] [facility] [address] [id number], [place] [address] Jan, [facility] [place] [facility] [address] [facility] [id number], [place] [address] Jan, [facility] [place] [facility] [address] [id number], [place] [address] Jan, [facility] [place] [facility] [address] [id number], [place] [address] Jan, [facility] [place] [facility] [address] [id number], [place] [address] 24 Dec, 2011 [facility] [place] [facility] [address] [id number], [place] [address] 18 Dec, 2011 [facility] [place] [facility] [address] [id number], [place] [address] Dec, [facility] [place] [facility] [address] [id number] [place] [address] Dec, [facility] [place] [facility] [address] [id number] [place] [address] Nov, [facility] [place] [facility] [address] [id number] [place] [address] Nov, [facility] [place] [facility] [address] [id number] [place] [address] Nov, [facility] [place] [facility] [address] [id number] [place] [address] Nov, [facility] [place] [facility] [address] [id number] [place] [address] Nov, [facility] [place] [facility] [address] [id number] [place] [address] Nov, [facility] [place] [facility] [address] [id number] [place] [address] Oct, [facility] [place] [facility] [address] [id number] [place] [address] Oct, [facility] [place] [facility] [address] [id number] [place] [address] Oct, [facility] [place] [facility] [address] [id number] [place] [address] Oct, [facility] [place] [facility] [address] [id number] [place] [address] Oct, [facility] [place] [facility] [address] [id number] [place] [address] Sep, [facility] [place] [facility] [address] [id number] [place] [address] Sep, [facility] [place] [facility] [address] [id number] [place] [address] Sep, [facility] [place] [facility] [address] [id number] [place] [address] 07 Sep, 2011 [facility] [address] [id number] [place] [address] Sep, [facility] [place] [facility] [address] [id number] [place] [address] August, [facility] [address] [id number] [place] [address] August, [facility] [address] [id number] [place] [address] August, [facility] [address] [id number] [place] [address] August, [facility] [address] [id number] [place] [address] Jul, [facility] [address] [id number] [place] [address] Jul, [facility] [address] [id number] [place] [address] Jul, [facility] [address] [id number] [place] [address] Jul, [facility] [address] [id number] [place] [address] Jul, [facility] [place] [facility] [address] [id number] [place] [address] 12 Jul, 2011 [facility] [place] [facility] [address] [id number] [place] [address] 11 Jul, 2011 [facility] [place] [facility] [address] [id number] [place] [address] 10 Jul, 2011 [facility] [place] [facility] [address] [id number] [place] [address] 09 Jul, 2011 [facility] [place] [facility] [address] [id number] [place] [address] Jul, [facility] [address] [id number] [place] [address] 05 Jul, 2011 [facility] [place] [facility] [address] [id number] [place] [address] Jul, [facility] [place] [facility] [address] [id number] [place] [address] Jul, [facility] [place] [facility] [address] [id number] [place] [address] Jul, [facility] [place] [facility] [address] [id number] [place] [address] Jun, [facility] [place] [facility] [address] [id number] [place] [address] Jun, [facility] [place] [facility] [address] [id number] [place] [address] Jun, [facility] [place] [facility] [address] [id number] [place] [address] Jun, [facility] [place] [facility] [address] [id number] [place] [address] May, [facility] [place] [facility] [address] [id number] [place] [address] May, [facility] [place] [facility] [address] [id number] [place] [address] May, [facility] [place] [facility] [address] [id number] [place] [address] Apr, [facility] [place] [facility] [address] [id number] [place] [address] Apr, [facility] [place] [facility] [address] [id number] [place] [address] 13 Apr, 2011 [facility] [place] [facility] [address] [id number] [place] [address] Apr, [facility] [place] [facility] [address] [id number] [place] [address] 09 Apr, 2011 [facility] [address] [id number] [place] [address] Mar, [facility] [place] [facility] [address] [id number] [place] [address] Mar, [facility] [place] [facility] [address] [id number] [place] [address] Mar, [facility] [place] [facility] [address] [id number] [place] [address] Mar, [facility] [place] [facility] [address] [id number] [place] [address] Mar, [facility] [place] [facility] [address] [address] [id number] [place] [address] Mar, [facility] [place] [facility] [address] [id number] [place] [address] Mar, [facility] [place] [facility] [address] [id number] [place] [address] Feb, [facility] [place] [facility] [address] [id number] [place] [address] 25 Feb, 2011 [facility] [place] [facility] [address] [id number] [place] [address] Feb, [facility] [place] [facility] [address] [id number] [place] [address] Feb, [facility] [place] [facility] [address] [id number] [place] [address] 16 Feb, 2011 [facility] [place] [facility] [address] [id number] [place] [address] 14 Feb, 2011 [facility] [place] [facility] [address] [id number] [place] [address] 10 Feb, 2011 [facility] [place] [facility] [address] [id number] [place] [address] 31 Jan, 2011 [facility] [place] [facility] [address] [id number] [place] [address] 31 Jan, 2011 [facility] [address] [id number] [place] [address] 31 Jan, 2011 [facility] [place] [facility] [address] [id number] [place] [address] 18 Jan, 2011 [facility] [place] [facility] [address] [id number] [place] [address] 17 Jan, 2011 [facility] [address] [id number] [place] [address] 17 Jan, 2011 [facility] [address] [id number] [place] [address] 17 Jun, 2010 [facility] [address] [id number] [place] [address] 30 Mar, 2010 [facility] [address] [id number] [place] [address] 20 Mar, 2010 [facility] [address] [id number] [place] [address] 14 Mar, 2010 [facility] [place] [facility] [address] [id number] [place] [address] 14 Mar, 2010 [facility] [place] [facility] [address] [id number] [place] [address] 13 Mar, 2010 [facility] [place] [facility] [address] [id number] [place] [address] 07 Mar, 2010 [facility] [place] [facility] [address] [id number] [place] [address] 02 Mar, 2010 [facility] [place] [facility] [address] [id number] [place] [address] Mar, [facility] [place] [facility] [address] [id number] [place] [address] 30 Feb, 2010 [facility] [place] [facility] [address] [id number] [address] 29 Feb, 2010 [facility] [place] [facility] [address] [id number] [place] [address] 17 Feb, 2010 [facility] [place] [facility] [address] [id number] [place] [address] 17 Feb, 2010 [facility] [place] [facility] [address] [id number] [place] [address] 16 Feb, 2010 [facility] [place] [facility] [address] [id number] [place] [address] 08 Feb, 2010 [facility] [place] [facility] [address] [id number] [place] [address] 04 Feb, 2010 [facility] [place] [facility] [address] [id number] [place] [address] Feb, [facility] [place] [facility] [address] [id number] [place] [address] Jan, [facility] [place] [facility] [address] [id number] [place] [address] Jan, [facility] [place] [facility] [address] [id number] [place] [address] 25 Jan, 2010 [facility] [place] [facility] [address] [id number] [place] [address] Jan, [facility] [place] [facility] [address] [id number], [place] [address] 29 Mar, 2009 [facility] [place] [facility] [address] [id number], [place] [address] 22 Mar, 2009 [facility] [place] [facility] [address] [id number] [place] [address] 19 Mar, 2009 [facility] [place] [facility] [address] [id number] [place] [address] 19 Mar, 2009 [facility] [place] [facility] [address] [id number] [place] [address] 14 Mar, 2009 [facility] [place] [facility] [address] [facility] [id number] [place] [address] Mar, [facility] [address] [id number], [place] [address] Feb, [facility] [address] [id number], [place] [address] Feb, [facility] [address] [id number], [place] [address] Jan, [facility] [address] [id number], [place] [address] Sep, [facility] [address] [id number], [place] [address] May, IMMUNIZATIONS No Known Immunizations SOCIAL HISTORY Never Assessed [place]AS[place] [place] VITAL SIGNS MEDICATIONS Unknown [...] Surgical History Left ear surgery Hospitalization History [facility] in [place]- Spontaneous Pneumothorax Hospitalization History [facility]- Colon resection Hospitalization [facility] - diarrhea/ couldnt urinate nov 2017
--- OUTSIDE RECORDS SUMMARY | 2018-10-15 01:05 | XMS REPORT ---
Author Author Migration, Doctor Organization [facility] Address Unknown Phone Unavailable Care Team Providers Care Veneer Drier Name Role Phone Migration, Doctor Unavailable Unavailable PROBLEMS Type Condition ICD9-CM Code VCE39-AM Code Onset Dates Condition Status SNOMED Code Problem Constipation K59.00 Active 84148245 Problem Chronic pain G89.29 Active 69912400 Problem Hyperlipidemia E78.5 Active 46925515 Problem Insomnia G47.00 Active 661743552 Problem Chronic kidney disease, stage III (moderate) N18.3 Active 535900566 Problem Anxiety F41.9 Active 39423603 Problem Vision loss H54.7 Active 287899023 Problem HTN (hypertension) I10 Active 26628841 Problem Thoracic back pain, unspecified back pain laterality, unspecified chronicity M54.6 Active 255137715 Problem Vitamin D deficiency E55.9 Active 92084302 Problem Environmental allergies Z91.09 Active 867058554 Problem Primary insomnia F51.01 Active 5698459 ALLERGIES No Information ENCOUNTERS Encounter Location Date Diagnosis [place] [address] [address] Jul, [place] [address] [address] Jul, Thoracic back pain, unspecified back pain laterality, unspecified chronicity M54.6 [place] [address] [place] [id number] [place] [address] Jun, Anxiety F41.9 and Thoracic back pain, unspecified back pain laterality, unspecified chronicity M54.6 [place] [address] [address] Jun, Anxiety F41.9 and Thoracic back pain, unspecified back pain laterality, unspecified chronicity M54.6 [place] [address] [address] Jun, Thoracic back pain, unspecified back pain laterality, unspecified chronicity M54.6 [place] [address] [place] [id number] [place] [address] Jun, Anxiety F41.9 and Thoracic back pain, unspecified back pain laterality, unspecified chronicity M54.6 [place] [address] [address] May, [place] [address] [address] May, [place] [address] [address] May, [place] [address] [address] May, Anxiety F41.9 and Encounter for medication monitoring Z51.81 [place] [address] [address] May, Anxiety F41.9 and Thoracic back pain, unspecified back pain laterality, unspecified chronicity M54.6 [place] [address] [address] Apr, Hyperlipidemia 272.4 [place] [address] [place] [id number] [place] [address] Apr, Chronic pain G89.29 ; Anxiety F41.9 ; Cervical radiculopathy M54.12 and Vision loss H54.7 [place] [address] [place] [id number] [place] [address] Apr, [place] [address] [address] Apr, Anxiety F41.9 and Thoracic back pain, unspecified back pain laterality, unspecified chronicity M54.6 [place] [address] [place] [id number] [place] [address] Mar, [facility] [address] [place] [address] 10 Mar, 2018 Anxiety F41.9 and Thoracic back pain, unspecified back pain laterality, unspecified chronicity M54.6 [place] [address] [place] [id number] [place] [address] 14 Feb, 2018 Anxiety F41.9 and Thoracic back pain, unspecified back pain laterality, unspecified chronicity M54.6 [place] [address] [place] [id number] [place] [address] 07 Feb, 2018 Thoracic back pain, unspecified back pain laterality, unspecified chronicity M54.6 [place] [address] [place] [id number] [place] [address] 29 Jan, 2018 [place] [address] [place] [id number] [place] [address] 16 Jan, 2018 Anxiety F41.9 and Thoracic back pain, unspecified back pain laterality, unspecified chronicity M54.6 [place] [address] [place] [id number] [place] [address] 19 Dec, 2017 Diarrhea of presumed infectious origin R19.7 [place] [address] [place] [id number] [place] [address] 19 Dec, 2017 Diarrhea of presumed infectious origin R19.7 [place] [address] [place] [id number] [place] [address] 18 Dec, 2017 Thoracic back pain, unspecified back pain laterality, unspecified chronicity M54.6 [place] [address] [place] [id number] [place] [address] 17 Dec, 2017 [place] [address] [place] [id number] [place] [address] 17 Dec, 2017 Anxiety F41.9 and Thoracic back pain, unspecified back pain laterality, unspecified chronicity M54.6 [place] [address] [place] [id number] [place] [address] Dec, Diarrhea of presumed infectious origin R19.7 [place] [address] [address] Dec, [place] [address] [place] [address] Dec, Anxiety F41.9 and Thoracic back pain, unspecified back pain laterality, unspecified chronicity M54.6 [place] [id number] [place] [address] Dec, Anxiety F41.9 and Thoracic back pain, unspecified back pain laterality, unspecified chronicity M54.6 [facility] [employer] [address] [place] [id number] Dec, Diarrhea of presumed infectious origin R19.7 ; Anxiety F41.9 ; Thoracic back pain, unspecified back pain laterality, unspecified chronicity M54.6 and HTN (hypertension) I10 [place] [id number] [place] [address] Dec, Anxiety F41.9 [facility] [employer] [address] [place] [id number] Dec, Anxiety F41.9 ; Diarrhea of presumed infectious origin R19.7 ; Generalized abdominal pain R10.84 and Localized edema R60.[address] [place] [address] Nov, [facility] [employer] [address] [place] [id number] Nov, Anxiety F41.9 ; Urinary retention R33.9 ; Diarrhea of presumed infectious origin R19.7 ; Weakness R53.1 ; Acute kidney failure, unspecified N17.9 ; Chronic kidney disease, stage III (moderate) N18.3 and Thoracic back pain, unspecified back pain laterality, unspecified chronicity M54.6 [address] [address] Oct, Thoracic back pain, unspecified back pain laterality, unspecified chronicity M54.6 and Anxiety F41.9 [place] [address] [address] Sep, Thoracic back pain, unspecified back pain laterality, unspecified chronicity M54.[address] [facility] [address] [place] [id number] [place] [address] 04 Sep, 2017 Thoracic back pain, unspecified back pain laterality, unspecified chronicity M54.6 ; Anxiety F41.9 and Encounter for medication monitoring Z51.81 [place] [address] [place] [id number] [place] [address] August, [place] [address] [address] August, Thoracic back pain, unspecified back pain laterality, unspecified chronicity M54.6 and Anxiety F41.9 [place] [address] [place] [id number] [place] [address] August, Hyperlipidemia E78.5 and HTN (hypertension) I10 [place] [address] [place] [id number] [place] [address] August, [place] [address] [place] [id number] [place] [address] August, Medicare welcome exam Z00.00 ; Chronic kidney failure N18.9 ; Anxiety F41.9 ; Chronic pain G89.29 ; Insomnia G47.00 ; Hyperlipidemia E78.5 ; HTN (hypertension) I10 and Thoracic back pain, unspecified back pain laterality, unspecified chronicity M54.6 [place] [address] [place] [address] Jul, [place] [address] [place] [id number] [place] [address] Jul, [place] [address] [place] [address] Jul, [place] [address] [place] [id number] [place] [address] Jul, Anxiety F41.9 [place] [address] [place] [id number] [place] [address] Jul, Thoracic back pain, unspecified back pain laterality, unspecified chronicity M54.6 and Anxiety F41.9 [place] [address] [place] [id number] [place] [address] Jun, Thoracic back pain, unspecified back pain laterality, unspecified chronicity M54.6 and Anxiety F41.9 [place] [address] [place] [id number] [place] [address] May, Thoracic back pain, unspecified back pain laterality, unspecified chronicity M54.6 and Anxiety F41.9 [place] [address] [place] [id number] [place] [address] Apr, Thoracic back pain, unspecified back pain laterality, unspecified chronicity M54.6 and Anxiety F41.9 [place] [address] [place] [id number] [place] [address] Mar, [place] [address] [address] Mar, Thoracic back pain, unspecified back pain laterality, unspecified chronicity M54.6 and Anxiety F41.9 [place] [address] [place] [id number] [place] [address] Mar, Thoracic back pain, unspecified back pain laterality, unspecified chronicity M54.6 ; HTN (hypertension) I10 ; Hyperlipidemia E78.5 and Anxiety F41.9 [place] [address] [place] [id number] [place] [address] Feb, Thoracic back pain, unspecified back pain laterality, unspecified chronicity M54.6 and Anxiety F41.9 [place] [address] [place] [id number] [place] [address] Nov, [place] [address] [address] Oct, [facility] [address] [place] [id number] [place] [address] Oct, Thoracic back pain, unspecified back pain laterality, unspecified chronicity M54.6 [facility] [address] [place] [id number] [place] [address] Oct, HTN (hypertension) I10 ; Constipation K59.00 ; Hyperlipidemia E78.5 ; Thoracic back pain, unspecified back pain laterality, unspecified chronicity M54.6 ; Chronic pain G89.29 ; Anxiety F41.9 ; Chronic kidney failure N18.9 ; Environmental allergies Z91.09 ; Vitamin D deficiency E55.9 and Primary insomnia F51.01 [facility] [address] [place] [id number] [place] [address] Sep, Anxiety F41.9 [facility] [address] [place] [id number] [place] [address] Sep, [facility] [address] [place] [id number] [place] [address] August, Anxiety F41.9 [facility] [address] [place] [id number] [place] [address] August, [facility] [address] [place] [id number] [place] [address] Jul, Anxiety F41.9 [facility] [address] [place] [id number] [place] [address] Jul, [facility] [address] [place] [id number] [place] [address] Jun, Anxiety F41.9 [facility] [address] [place] [id number] [place] [address] Jun, [facility] [address] [place] [id number] [place] [address] May, [facility] [address] [place] [address] May, [facility] [address] [place] [address] May, [facility] [address] [place] [address] Apr, [facility] [address] [place] [address] Apr, [facility] [address] [place] [id number] [place] [address] Apr, Anxiety F41.9 [facility] [address] [place] [id number] [place] [address] Apr, Anxiety F41.9 [facility] [address] [place] [id number] [place] [address] Apr, [facility] [address] [place] [id number] [place] [address] Mar, HTN (hypertension) I10 ; Tremor R25.1 ; Hypercholesterolemia E78.0 ; Constipation K59.00 ; Chronic pain G89.29 ; Hyperlipidemia E78.5 ; Insomnia G47.00 ; Anxiety F41.9 and Thoracic back pain, unspecified back pain laterality, unspecified chronicity M54.6 [facility] [address] [address] Mar, Tremor R25.1 ; HTN (hypertension) I10 ; Hypercholesterolemia E78.0 ; Constipation K59.00 ; Chronic pain G89.29 ; Hyperlipidemia E78.5 ; Insomnia G47.00 ; Anxiety F41.9 and Thoracic back pain, unspecified back pain laterality, unspecified chronicity M54.6 [facility] [address] [place] [address] Mar, [facility] [address] [place] [address] Mar, [facility] [address] [place] [id number] [address] Feb, [facility] [address] [address] Jan, [facility] [address] [address] Jan, [facility] [address] [place] [address] Dec, [facility] [address] [place] [address] Nov, [facility] [address] [place] [address] Nov, [facility] [address] [place] [address] Oct, Anxiety F41.9 [facility] [address] [place] [id number] [place] [address] Oct, Chronic pain G89.29 [facility] [address] [address] Sep, [facility] [address] [place] [address] Sep, [facility] [address] [address] Sep, [facility] [address] [address] Sep, [facility] [address] [address] 16 Sep, 2015 Chronic pain syndrome G89.4 [facility] [address] [address] Sep, HTN (hypertension) I10 ; Chronic pain G89.29 ; Hypercholesterolemia E78.0 ; Chronic kidney failure N18.9 ; Constipation, unspecified constipation type K59.00 ; Anxiety F41.9 and Thoracic back pain, unspecified back pain laterality, unspecified chronicity M54.6 [facility] [address] [place] [id number] [place] [address] August, Chronic pain syndrome G89.4 [facility] [address] [place] [id number] [place] [address] August, Chronic pain syndrome G89.4 [facility] [address] [place] [id number] [place] [address] Jul, Anxiety disorder, unspecified F41.9 and Chronic pain syndrome G89.4 [facility] [address] [place] [id number] [place] [address] Jul, Insomnia, unspecified G47.00 and Chronic pain syndrome G89.4 [facility] [address] [place] [id number] [place] [address] Jul, Allergic rhinitis J30.9 [facility] [address] [place] [id number] [place] [address] Jul, Constipation, unspecified K59.00 [facility] [address] [place] [id number] [place] [address] Jul, [facility] [address] [place] [id number] [place] [address] Jun, [facility] [address] [place] [address] Jun, [facility] [address] [place] [id number] [place] [address] Jun, [facility] [address] [place] [id number] [place] [address] Jun, [facility] [address] [place] [id number] [place] [address] Jun, [facility] [address] [place] [id number] [place] [address] Jun, [facility] [address] [place] [id number] [place] [address] May, [facility] [address] [place] [id number] [place] [address] May, [facility] [address] [place] [id number] [place] [address] May, Anxiety F41.9 ; Insomnia G47.00 ; Hyperlipidemia E78.5 ; Chronic pain G89.29 ; HTN (hypertension) I10 ; Environmental allergies V15.[address] [facility] [address] [place] [id number] [place] [address] Apr, [facility] [address] [place] [id number] [place] [address] Apr, [facility] [address] [place] [id number] [place] [address] Apr, [facility] [address] [place] [id number] [place] [address] Mar, [facility] [address] [place] [id number] [place] [address] Mar, [facility] [address] [place] [id number] [place] [address] Mar, [facility] [address] [place] [id number] [place] [address] Feb, [facility] [address] [place] [address] Feb, [facility] [address] [place] [id number] [place] [address] Feb, [facility] [address] [place] [id number] [place] [address] 15 Jan, 2015 HTN (hypertension) I10 ; Constipation K59.00 ; Chronic pain G89.29 ; Hyperlipidemia E78.5 ; Hypercholesterolemia E78.0 ; Insomnia G47.[address] [facility] [address] [address] Jan, [facility] [address] [address] Dec, [facility] [address] [address] Nov, [facility] [address] [place] [id number] [place] [address] Oct, Chronic kidney disease, unspecified 585.9 ; Chronic pain syndrome 338.4 ; Hyperlipidemia 272.4 and Essential hypertension 401.9 [facility] [address] [place] [id number] [place] [address] Oct, Chronic kidney disease 585.9 [facility] [address] [address] Oct, [facility] [address] [place] [address] Oct, Chronic kidney disease, unspecified 585.9 ; Hypercalcemia 275.42 ; Hyperlipidemia 272.4 ; Essential hypertension 401.9 ; Chronic pain syndrome 338.4 ; Insomnia 780.52 ; Constipation 564.00 ; Environmental allergies V15.[address] [facility] [address] [address] Oct, Chronic kidney disease 585.9 [facility] [address] [address] Oct, [facility] [address] [address] Oct, Chronic kidney disease 585.[address] [facility] [address] [address] Oct, [facility] [address] [address] Oct, [facility] [address] [facility] [id number] [place] [address] 18 Sep, 2014 [facility] [address] [id number] [address] Sep, [facility] [place] [facility] [address] [facility] [id number] [place] [address] 15 Sep, 2014 Chronic kidney disease 585.9 and Hyperlipidemia 272.4 [facility] [place] [facility] [address] [id number] [place] [address] Sep, [facility] [address] [id number] [place] [address] August, [facility] [address] [id number] [place] [address] August, [facility] [address] [facility] [id number] [place] [address] Jul, [facility] [address] [facility] [id number] [place] [address] Jul, [facility] [address] [id number] [place] [address] Jun, [facility] [address] [facility] [id number] [place] [address] Jun, [facility] [place] [facility] [address] [id number] [place] [address] Jun, [facility] [place] [facility] [address] [id number] [place] [address] Jun, [facility] [place] [facility] [address] [id number] [place] [address] Jun, [facility] [place] [facility] [address] [id number] [place] [address] Jun, [facility] [place] [facility] [address] [facility] [id number] [place] [address] Jun, [facility] [place] [facility] [address] [id number] [place] [address] Jun, [facility] [place] [facility] [address] [id number] [place] [address] May, [facility] [place] [facility] [address] [id number] [place] [address] May, [facility] [place] [facility] [address] [id number] [place] [address] May, [facility] [place] [facility] [address] [id number] [place] [address] May, [facility] [place] [facility] [address] [id number] [place] [address] Apr, [facility] [place] [facility] [address] [id number] [place] [address] Apr, [facility] [place] [facility] [address] [id number] [place] [address] Apr, [facility] [place] [facility] [address] [id number] [place] [address] Apr, [facility] [place] [facility] [address] [id number] [place] [address] Apr, [facility] [place] [facility] [address] [id number] [place] [id number] Apr, [facility] [place] [facility] [address] [id number] [place] [address] Apr, [facility] [place] [facility] [address] [id number] [place] [address] Apr, [facility] [place] [facility] [address] [id number] [place] [address] Apr, [facility] [place] [facility] [address] [id number] [place] [address] Apr, [facility] [place] [facility] [address] [id number] [place] [address] Apr, [facility] [place] [facility] [address] [id number] [place] [address] Mar, [facility] [place] [facility] [address] [id number] [place] [address] Mar, [facility] [place] [facility] [address] [id number] [place] [address] Feb, [facility] [place] [facility] [address] [id number] [place] [address] Feb, [facility] [place] [facility] [address] [id number] [place] [address] Feb, [facility] [place] [facility] [address] [id number] [place] [address] Feb, [facility] [place] [facility] [address] [id number] [place] [address] Feb, [facility] [place] [facility] [address] [id number] [place] [address] Feb, [facility] [place] [facility] [address] [id number] [place] [address] Feb, [facility] [place] [facility] [address] [id number] [place] [address] Feb, [facility] [place] [facility] [address] [id number] [place] [address] Feb, [facility] [place] [facility] [address] [id number] [address] Feb, [facility] [place] [facility] [address] [id number] [place] [address] Jan, [facility] [place] [facility] [address] [id number] [place] [address] Jan, [facility] [place] [facility] [address] [id number] [address] Jan, [facility] [place] [facility] [address] [id number] [place] [address] Jan, [facility] [place] [facility] [address] [id number] [place] [address] Jan, [facility] [place] [facility] [address] [address] [id number] [place] [address] Jan, [facility] [place] [facility] [address] [id number] [place] [address] Jan, [facility] [place] [facility] [address] [id number] [place] [address] Jan, [facility] [place] [facility] [address] [id number] [place] [address] 16 Jan, 2014 [facility] [place] [facility] [address] [id number] [place] [address] Jan, [facility] [place] [facility] [address] [id number] [place] [address] Jan, [facility] [place] [facility] [address] [id number] [place] [address] 26 Dec, 2013 [facility] [place] [facility] [address] [id number] [place] [address] 26 Dec, 2013 [facility] [place] [facility] [address] [id number] [place] [address] 19 Dec, 2013 [facility] [place] [facility] [address] [id number] [address] 19 Dec, 2013 [facility] [place] [facility] [address] [id number] [place] [address] 18 Dec, 2013 [facility] [place] [facility] [address] [id number] [place] [address] 18 Dec, 2013 [facility] [place] [facility] [address] [id number] [place] [address] 03 Sep, 2013 [facility] [place] [facility] [address] [id number] [place] [address] 03 Sep, 2013 [facility] [place] [facility] [address] [id number] [place] [address] Nov, [facility] [place] [facility] [address] [id number] [place] [address] Nov, [facility] [place] [facility] [address] [id number] [place] [address] Nov, [facility] [place] [facility] [address] [id number] [place] [address] Nov, [facility] [place] [facility] [address] [id number] [place] [address] Nov, [facility] [place] [facility] [address] [id number] [place] [address] Nov, [facility] [place] [facility] [address] [id number] [place] [address] Nov, [facility] [place] [facility] [address] [id number] [place] [address] Nov, [facility] [place] [facility] [address] [id number] [place] [address] Oct, [facility] [place] [facility] [address] [id number] [place] [address] Oct, [facility] [place] [facility] [address] [id number] [place] [address] Oct, [facility] [place] [facility] [address] [id number] [place] [address] Oct, [facility] [place] [facility] [address] [id number] [place] [address] Sep, [facility] [place] [facility] [address] [id number] [place] [address] Sep, [facility] [place] [facility] [address] [id number] [place] [address] Sep, [facility] [place] [facility] [address] [id number] [place] [address] Sep, [facility] [place] [facility] [address] [id number] [place] [address] Sep, [facility] [place] [facility] [address] [id number] [place] [address] Sep, [facility] [place] [facility] [address] [id number] [place] [address] Sep, [facility] [place] [facility] [address] [id number] [place] [address] Sep, [facility] [place] [facility] [address] [id number] [place] [address] August, [facility] [place] [facility] [address] [id number] [place] [address] August, [facility] [place] [facility] [address] [id number] [place] [address] August, [facility] [place] [facility] [address] [id number] [place] [address] August, [facility] [place] [facility] [address] [id number] [place] [address] August, [facility] [place] [facility] [address] [id number] [place] [address] August, [facility] [place] [facility] [address] [id number] [place] [address] August, [facility] [place] [facility] [address] [id number] [place] [address] August, [facility] [place] [facility] [address] [id number] [place] [address] August, [facility] [place] [facility] [address] [id number] [place] [address] August, [facility] [place] [facility] [address] [id number] [place] [address] Jul, [facility] [place] [facility] [address] [id number] [place] [address] Jul, [facility] [place] [facility] [address] [id number] [place] [address] Jul, [facility] [place] [facility] [address] [id number] [place] [address] Jul, [facility] [place] [facility] [address] [id number] [place] [address] Jul, [facility] [place] [facility] [address] [id number] [place] [address] Jul, [facility] [place] [facility] [address] [id number] [place] [address] Jul, [facility] [place] [facility] [address] [id number] [place] [address] Jul, [facility] [place] [facility] [address] [id number] [place] [address] Jun, [facility] [place] [facility] [address] [id number] [place] [address] Jun, [facility] [place] [facility] [address] [id number] [place] [address] Jun, [facility] [place] [facility] [address] [facility] [id number] [place] [address] Jun, [facility] [place] [facility] [address] [id number] [place] [address] Jun, [facility] [place] [facility] [address] [id number] [place] [address] Jun, [facility] [place] [facility] [address] [id number] [place] [address] May, [facility] [place] [facility] [address] [id number] [place] [address] May, [facility] [place] [facility] [address] [id number] [place] [address] May, [facility] [place] [facility] [address] [id number] [place] [address] May, [facility] [place] [facility] [address] [id number] [place] [address] May, [facility] [place] [facility] [address] [id number] [place] [address] May, [facility] [place] [facility] [address] [id number] [place] [address] May, [facility] [place] [facility] [address] [id number] [place] [address] Apr, [facility] [place] [facility] [address] [id number] [place] [address] Apr, [facility] [place] [facility] [address] [id number] [place] [address] Apr, [facility] [place] [facility] [address] [id number] [place] [address] Apr, [facility] [place] [facility] [address] [id number] [place] [address] Apr, [facility] [place] [facility] [address] [id number] [place] [address] Apr, [facility] [place] [facility] [address] [id number] [place] [address] Mar, [facility] [place] [facility] [address] [id number] [place] [address] Mar, [facility] [place] [facility] [address] [id number] [place] [address] Mar, [facility] [place] [facility] [address] [id number] [place] [address] Mar, [facility] [place] [facility] [address] [id number] [place] [address] Mar, [facility] [place] [facility] [address] [id number] [place] [address] 19 Mar, 2013 [facility] [address] [id number] [place] [address] 16 Mar, 2013 [facility] [place] [facility] [address] [id number] [place] [address] 16 Mar, 2013 [facility] [address] [id number] [place] [address] 12 Mar, 2013 [facility] [place] [facility] [address] [id number] [place] [address] Mar, [facility] [address] [id number] [place] [address] Feb, [facility] [place] [facility] [address] [id number] [place] [address] Feb, [facility] [address] [id number] [place] [address] Feb, [facility] [place] [facility] [address] [id number] [place] [address] Feb, [facility] [address] [id number] [place] [address] 14 Feb, 2013 [facility] [place] [facility] [address] [facility] [id number] [place] [address] 14 Feb, 2013 [facility] [address] [id number] [place] [address] Feb, [facility] [place] [facility] [address] [id number] [place] [address] Feb, [facility] [place] [facility] [address] [id number] [place] [address] 08 Feb, 2013 [facility] [place] [facility] [address] [id number] [place] [address] 08 Feb, 2013 [facility] [place] [facility] [address] [id number] [place] [address] Jan, [facility] [place] [facility] [address] [id number] [place] [address] Jan, [facility] [place] [facility] [address] [id number] [place] [address] Jan, [facility] [place] [facility] [address] [id number] [place] [address] Jan, [facility] [place] [facility] [address] [id number] [place] [address] Jan, [facility] [place] [facility] [address] [id number] [place] [address] Jan, [facility] [place] [facility] [address] [id number] [place] [address] Jan, [facility] [place] [facility] [address] [id number] [place] [address] Jan, [facility] [place] [facility] [address] [id number] [place] [address] Jan, [facility] [place] [facility] [address] [id number] [place] [address] Dec, [facility] [place] [facility] [address] [id number] [place] [address] Dec, [facility] [place] [facility] [address] [id number] [place] [address] Dec, [facility] [place] [facility] [address] [id number] [place] [address] Dec, [facility] [place] [facility] [address] [id number] [place] [address] Nov, [facility] [place] [facility] [address] [id number] [place] [address] Nov, [facility] [place] [facility] [address] [id number] [place] [address] Nov, [facility] [place] [facility] [address] [id number] [place] [address] Nov, [facility] [address] [id number] [place] [address] Nov, [facility] [place] [facility] [address] [id number] [place] [address] Nov, [facility] [place] [facility] [address] [id number] [place] [address] Oct, [facility] [place] [facility] [address] [id number] [place] [address] Oct, [facility] [place] [facility] [address] [id number] [place] [address] Oct, [facility] [place] [facility] [address] [id number] [place] [address] Oct, [facility] [place] [facility] [address] [id number] [place] [address] Sep, [facility] [place] [facility] [address] [id number] [place] [address] Sep, [facility] [place] [facility] [address] [id number] [place] [address] Sep, [facility] [place] [facility] [address] [id number] [place] [address] Sep, [facility] [place] [facility] [address] [id number] [place] [address] Sep, [facility] [place] [facility] [address] [id number] [place] [address] August, [facility] [place] [facility] [address] [id number] [place] [address] August, [facility] [place] [facility] [address] [id number] [place] [address] Jul, [facility] [place] [facility] [address] [id number] [place] [address] Jul, [facility] [place] [facility] [address] [id number] [place] [address] 15 Jul, 2012 [facility] [address] [id number] [place] [address] 09 Jul, 2012 [facility] [place] [facility] [address] [id number] [place] [address] 08 Jul, 2012 [facility] [address] [id number] [place] [address] 26 Jun, 2012 [facility] [place] [facility] [address] [id number] [place] [address] Jun, [facility] [address] [id number] [place] [address] 15 Jun, 2012 [facility] [address] [facility] [id number] [place] [address] Jun, [facility] [address] [facility] [id number] [place] [address] Jun, [facility] [address] [facility] [id number] [place] [address] 28 May, 2012 [facility] [address] [id number] [address] 27 May, 2012 [facility] [address] [facility] [id number] [place] [address] 25 May, 2012 [facility] [place] [facility] [address] [facility] [id number] [place] [address] 21 May, 2012 [facility] [address] [facility] [id number] [place] [address] 20 May, 2012 [facility] [place] [facility] [address] [id number] [place] [address] 14 May, 2012 [facility] [place] [facility] [address] [facility] [id number] [place] [address] 13 May, 2012 [facility] [place] [facility] [address] [facility] [id number] [place] [address] May, [facility] [address] [id number] [place] [address] May, [facility] [address] [id number] [place] [address] Apr, [facility] [place] [facility] [address] [facility] [id number] [place] [address] Apr, [facility] [place] [facility] [address] [id number] [place] [address] Apr, [facility] [address] [id number] [place] [address] Apr, [facility] [address] [id number] [place] [address] Apr, [facility] [address] [id number] [place] [address] Mar, [facility] [place] [facility] [address] [id number] [place] [address] Mar, [facility] [address] [id number] [place] [address] Mar, [facility] [place] [facility] [address] [id number] [place] [address] Mar, [facility] [place] [facility] [address] [id number] [place] [address] Mar, [facility] [place] [facility] [address] [id number] [place] [address] Mar, [facility] [place] [facility] [address] [id number] [place] [address] Mar, [facility] [place] [facility] [address] [id number] [place] [address] Mar, [facility] [place] [facility] [address] [facility] [id number] [place] [address] Mar, [facility] [place] [facility] [address] [id number] [place] [address] Mar, [facility] [address] [id number] [place] [address] 30 Feb, 2012 [facility] [place] [facility] [address] [id number] [place] [address] Feb, [facility] [place] [facility] [address] [id number] [place] [address] Feb, [facility] [place] [facility] [address] [id number] [place] [address] Feb, [facility] [place] [facility] [address] [id number] [place] [address] Feb, [facility] [place] [facility] [address] [id number] [place] [address] Feb, [facility] [place] [facility] [address] [id number] [place] [address] Feb, [facility] [place] [facility] [address] [id number] [place] [address] Feb, [facility] [place] [facility] [address] [id number] [place] [address] Feb, [facility] [place] [facility] [address] [id number] [place] [address] 16 Feb, 2012 [facility] [place] [facility] [address] [id number] [place] [address] Feb, [facility] [place] [facility] [address] [id number] [place] [address] Feb, [facility] [place] [facility] [address] [id number] [place] [address] Feb, [facility] [place] [facility] [address] [id number] [place] [address] Feb, [facility] [place] [facility] [address] [id number] [place] [address] Feb, [facility] [place] [facility] [address] [id number] [place] [address] 08 Feb, 2012 [facility] [place] [facility] [address] [id number] [place] [address] Feb, [facility] [place] [facility] [address] [id number] [place] [address] Feb, [facility] [place] [facility] [address] [id number] [place] [address] Jan, [facility] [place] [facility] [address] [id number] [place] [address] Jan, [facility] [place] [facility] [address] [id number] [place] [address] Jan, [facility] [place] [facility] [address] [id number] [place] [address] Jan, [facility] [place] [facility] [address] [id number] [place] [address] Jan, [facility] [place] [facility] [address] [id number] [place] [address] Jan, [facility] [place] [facility] [address] [id number] [place] [address] Jan, [facility] [place] [facility] [address] [facility] [id number] [place] [address] Jan, [facility] [place] [facility] [address] [id number] [place] [address] Jan, [facility] [place] [facility] [address] [id number] [place] [address] Jan, [facility] [place] [facility] [address] [id number] [place] [address] 24 Dec, 2011 [facility] [place] [facility] [address] [id number] [place] [address] 18 Dec, 2011 [facility] [place] [facility] [address] [id number] [place] [address] Dec, [facility] [place] [facility] [address] [id number] [place] [address] Dec, [facility] [place] [facility] [address] [id number] [place] [address] Nov, [facility] [place] [facility] [address] [id number] [place] [address] Nov, [facility] [place] [facility] [address] [id number] [place] [address] Nov, [facility] [place] [facility] [address] [id number] [place] [address] Nov, [facility] [place] [facility] [address] [id number] [place] [address] Nov, [facility] [place] [facility] [address] [id number] [place] [address] Nov, [facility] [place] [facility] [address] [id number] [place] [address] Oct, [facility] [place] [facility] [address] [id number] [place] [address] Oct, [facility] [place] [facility] [address] [id number] [place] [address] Oct, [facility] [place] [facility] [address] [id number] [place] [address] Oct, [facility] [place] [facility] [address] [id number] [place] [address] Oct, [facility] [place] [facility] [address] [id number] [place] [address] Sep, [facility] [place] [facility] [address] [id number] [place] [address] Sep, [facility] [place] [facility] [address] [id number] [place] [address] Sep, [facility] [place] [facility] [address] [id number] [place] [address] 07 Sep, 2011 [facility] [address] [id number] [place] [address] Sep, [facility] [place] [facility] [address] [id number] [place] [address] August, [facility] [address] [id number] [place] [address] August, [facility] [address] [id number] [place] [address] August, [facility] [address] [id number] [place] [address] August, [facility] [address] [id number] [place] [address] Jul, [facility] [address] [id number] [place] [address] Jul, [facility] [address] [id number] [place] [address] Jul, [facility] [address] [id number] [place] [address] Jul, [facility] [address] [id number] [place] [address] Jul, [facility] [place] [facility] [address] [id number] [place] [address] 12 Jul, 2011 [facility] [place] [facility] [address] [id number] [place] [address] 11 Jul, 2011 [facility] [place] [facility] [address] [id number] [place] [address] 10 Jul, 2011 [facility] [place] [facility] [address] [id number] [place] [address] 09 Jul, 2011 [facility] [place] [facility] [address] [id number] [place] [address] Jul, [facility] [address] [id number] [place] [address] 05 Jul, 2011 [facility] [place] [facility] [address] [id number] [place] [address] Jul, [facility] [place] [facility] [address] [id number] [place] [address] Jul, [facility] [place] [facility] [address] [id number] [place] [address] Jul, [facility] [place] [facility] [address] [id number] [place] [address] Jun, [facility] [place] [facility] [address] [id number] [place] [address] Jun, [facility] [place] [facility] [address] [id number] [place] [address] Jun, [facility] [place] [facility] [address] [id number] [place] [address] Jun, [facility] [place] [facility] [address] [id number] [place] [address] May, [facility] [place] [facility] [address] [id number] [place] [address] May, [facility] [place] [facility] [address] [id number] [place] [address] May, [facility] [place] [facility] [address] [id number] [place] [address] Apr, [facility] [place] [facility] [address] [id number] [place] [address] Apr, [facility] [place] [facility] [address] [id number] [place] [address] 13 Apr, 2011 [facility] [place] [facility] [address] [id number] [place] [address] Apr, [facility] [place] [facility] [address] [id number] [place] [address] 09 Apr, 2011 [facility] [address] [id number] [place] [address] Mar, [facility] [place] [facility] [address] [id number] [place] [address] Mar, [facility] [place] [facility] [address] [id number] [place] [address] Mar, [facility] [place] [facility] [address] [id number] [place] [address] Mar, [facility] [place] [facility] [address] [id number] [place] [address] Mar, [facility] [place] [facility] [address] [id number] [place] [address] Mar, [facility] [place] [facility] [address] [id number] [place] [address] Mar, [facility] [place] [facility] [address] [id number] [place] [address] Feb, [facility] [place] [facility] [address] [id number] [place] [address] 25 Feb, 2011 [facility] [place] [facility] [address] [id number] [place] [address] Feb, [facility] [place] [facility] [address] [id number] [place] [address] Feb, [facility] [place] [facility] [address] [id number] [place] [address] 16 Feb, 2011 [facility] [place] [facility] [address] [id number] [place] [address] 14 Feb, 2011 [facility] [place] [facility] [address] [id number] [place] [address] 10 Feb, 2011 [facility] [place] [facility] [address] [id number] [place] [address] 31 Jan, 2011 [facility] [place] [facility] [address] [id number] [place] [address] 31 Jan, 2011 [facility] [address] [id number] [place] [address] 31 Jan, 2011 [facility] [place] [facility] [address] [id number] [place] [address] 18 Jan, 2011 [facility] [place] [facility] [address] [id number] [place] [address] 17 Jan, 2011 [facility] [address] [id number] [place] [address] 17 Jan, 2011 [facility] [address] [id number] [place] [address] 17 Jun, 2010 [facility] [address] [id number] [place] [address] 30 Mar, 2010 [facility] [address] [id number] [place] [address] 20 Mar, 2010 [facility] [address] [id number] [place] [address] 14 Mar, 2010 [facility] [place] [facility] [address] [id number] [place] [address] 14 Mar, 2010 [facility] [place] [facility] [address] [id number] [place] [address] 13 Mar, 2010 [facility] [place] [facility] [address] [id number] [place] [address] 07 Mar, 2010 [facility] [place] [facility] [address] [id number] [place] [address] 02 Mar, 2010 [facility] [place] [facility] [address] [id number] [place] [address] Mar, [facility] [place] [facility] [address] [id number] [place] [address] 30 Feb, 2010 [facility] [place] [facility] [address] [id number] [place] [address] 29 Feb, 2010 [facility] [place] [facility] [address] [id number] [place] [address] 17 Feb, 2010 [facility] [place] [facility] [address] [id number] [place] [address] 17 Feb, 2010 [facility] [place] [facility] [address] [id number] [place] [address] 16 Feb, 2010 [facility] [place] [facility] [address] [id number] [place] [address] 08 Feb, 2010 [facility] [place] [facility] [address] [id number] [place] [address] 04 Feb, 2010 [facility] [place] [facility] [address] [id number] [place] [address] Feb, [facility] [place] [facility] [address] [id number] [place] [address] Jan, [facility] [place] [facility] [address] [id number] [place] [address] Jan, [facility] [place] [facility] [address] [id number] [place] [address] 25 Jan, 2010 [facility] [place] [facility] [address] [id number] [place] [address] Jan, [facility] [place] [facility] [address] [id number] [place] [address] 29 Mar, 2009 [facility] [place] [facility] [address] [id number] [place] [address] 22 Mar, 2009 [facility] [place] [facility] [address] [id number] [place] [address] 19 Mar, 2009 [facility] [place] [facility] [address] [id number] [place] [address] 19 Mar, 2009 [facility] [place] [facility] [address] [id number] [place] [address] 14 Mar, 2009 [facility] [place] [facility] [address] [facility] [id number] [place] [address] Mar, [facility] [address] [id number] [address] Feb, [facility] [address] [id number] [address] Feb, [facility] [address] [id number] [address] Jan, [facility] [address] [id number] [address] Sep, [facility] [address] [id number] [address] May, IMMUNIZATIONS No Known Immunizations SOCIAL HISTORY Never Assessed REASON FOR VISIT EMR-[facility] [place], [place] PLAN OF CARE VITAL SIGNS MEDICATIONS Unknown [...] Surgical History Left ear surgery Hospitalization History [facility] in [place]- Spontaneous Pneumothorax Hospitalization History [facility]- Colon resection Hospitalization History via [facility], [place] - diarrhea/ couldnt urinate nov 2017
--- OUTSIDE RECORDS SUMMARY | 2018-10-15 01:06 | XMS REPORT ---
Author Author Migration, Doctor Organization [facility] Address Unknown Phone Unavailable Care Team Providers Care Dietary Aide Teacher Name Role Phone Migration, Doctor Unavailable Unavailable PROBLEMS Type Condition ICD9-CM Code PMH80-OV Code Onset Dates Condition Status SNOMED Code Problem Constipation K59.00 Active 76699850 Problem Chronic pain G89.29 Active 23400189 Problem Hyperlipidemia E78.5 Active 51640647 Problem Insomnia G47.00 Active 503791379 Problem Chronic kidney disease, stage III (moderate) N18.3 Active 837050024 Problem Anxiety F41.9 Active 57705469 Problem Vision loss H54.7 Active 249149328 Problem HTN (hypertension) I10 Active 96848734 Problem Thoracic back pain, unspecified back pain laterality, unspecified chronicity M54.6 Active 747595290 Problem Vitamin D deficiency E55.9 Active 63299504 Problem Environmental allergies Z91.09 Active 273566026 Problem Primary insomnia F51.01 Active 3164550 ALLERGIES No Information ENCOUNTERS Encounter Location Date Diagnosis [place] [address] [address] Jul, [place] [address] [address] Jul, Thoracic back pain, unspecified back pain laterality, unspecified chronicity M54.6 [place] [address] [place] [id number] [place] [address] Jun, Anxiety F41.9 and Thoracic back pain, unspecified back pain laterality, unspecified chronicity M54.6 [place] [address] [address] Jun, Anxiety F41.9 and Thoracic back pain, unspecified back pain laterality, unspecified chronicity M54.6 [place] [address] [address] Jun, Thoracic back pain, unspecified back pain laterality, unspecified chronicity M54.6 [place] [address] [place] [id number] [place] [address] Jun, Anxiety F41.9 and Thoracic back pain, unspecified back pain laterality, unspecified chronicity M54.6 [place] [address] [address] May, [place] [address] [address] May, [place] [address] [address] May, [place] [address] [address] May, Anxiety F41.9 and Encounter for medication monitoring Z51.81 [place] [address] [address] May, Anxiety F41.9 and Thoracic back pain, unspecified back pain laterality, unspecified chronicity M54.6 [place] [address] [address] Apr, Hyperlipidemia 272.4 [place] [address] [place] [id number] [place] [address] Apr, Chronic pain G89.29 ; Anxiety F41.9 ; Cervical radiculopathy M54.12 and Vision loss H54.7 [place] [address] [place] [id number] [place] [address] Apr, [place] [address] [address] Apr, Anxiety F41.9 and Thoracic back pain, unspecified back pain laterality, unspecified chronicity M54.6 [place] [address] [place] [id number] [place] [address] Mar, [facility] [place] [id number] [place] [address] 10 Mar, 2018 Anxiety F41.9 and Thoracic back pain, unspecified back pain laterality, unspecified chronicity M54.6 [place] [address] [place] [id number] [place] [address] 14 Feb, 2018 Anxiety F41.9 and Thoracic back pain, unspecified back pain laterality, unspecified chronicity M54.6 [place] [address] [place] [id number] [place] [address] 07 Feb, 2018 Thoracic back pain, unspecified back pain laterality, unspecified chronicity M54.6 [place] [address] [place] [id number] [place] [phone] 29 Jan, 2018 [place] [address] [place] [id number] [place] [address] 16 Jan, 2018 Anxiety F41.9 and Thoracic back pain, unspecified back pain laterality, unspecified chronicity M54.6 [place] [address] [place] [id number] [place] [address] 19 Dec, 2017 Diarrhea of presumed infectious origin R19.7 [place] [address] [place] [id number] [place] [id number] 19 Dec, 2017 Diarrhea of presumed infectious origin R19.7 [place] [address] [place] [id number] [place] [address] 18 Dec, 2017 Thoracic back pain, unspecified back pain laterality, unspecified chronicity M54.6 [place] [address] [place] [id number] [place] [address] 17 Dec, 2017 [place] [address] [place] [id number] [place] [address] 17 Dec, 2017 Anxiety F41.9 and Thoracic back pain, unspecified back pain laterality, unspecified chronicity M54.6 [place] [address] [place] [id number] [place] [address] Dec, Diarrhea of presumed infectious origin R19.7 [place] [address] [address] Dec, [place] [id number] [place] [address] Dec, Anxiety F41.9 and Thoracic back pain, unspecified back pain laterality, unspecified chronicity M54.6 [place] [id number] [place] [address] Dec, Anxiety F41.9 and Thoracic back pain, unspecified back pain laterality, unspecified chronicity M54.6 [facility] [facility] [address] [place] [id number] Dec, Diarrhea of presumed infectious origin R19.7 ; Anxiety F41.9 ; Thoracic back pain, unspecified back pain laterality, unspecified chronicity M54.6 and HTN (hypertension) I10 [place] [id number] [place] [address] Dec, Anxiety F41.9 [facility] [address] [place] [id number] Dec, Anxiety F41.9 ; Diarrhea of presumed infectious origin R19.7 ; Generalized abdominal pain R10.84 and Localized edema R60.[address] [place] [address] Nov, [facility] [address] [place] [id number] Nov, Anxiety F41.9 ; Urinary retention R33.9 ; Diarrhea of presumed infectious origin R19.7 ; Weakness R53.1 ; Acute kidney failure, unspecified N17.9 ; Chronic kidney disease, stage III (moderate) N18.3 and Thoracic back pain, unspecified back pain laterality, unspecified chronicity M54.6 [address] [address] Oct, Thoracic back pain, unspecified back pain laterality, unspecified chronicity M54.6 and Anxiety F41.9 [place] [address] [address] Sep, Thoracic back pain, unspecified back pain laterality, unspecified chronicity M54.6 and Anxiety F41.9 [facility] [place] [address] [place] [id number] [place] [address] 04 Sep, 2017 Thoracic back pain, unspecified back pain laterality, unspecified chronicity M54.6 ; Anxiety F41.9 and Encounter for medication monitoring Z51.81 [place] [address] [place] [id number] [place] [address] August, [place] [address] [address] August, Thoracic back pain, unspecified back pain laterality, unspecified chronicity M54.6 and Anxiety F41.9 [place] [address] [place] [id number] [place] [address] August, Hyperlipidemia E78.5 and HTN (hypertension) I10 [place] [address] [place] [id number] [place] [address] August, [place] [address] [place] [id number] [place] [address] August, Medicare welcome exam Z00.00 ; Chronic kidney failure N18.9 ; Anxiety F41.9 ; Chronic pain G89.29 ; Insomnia G47.00 ; Hyperlipidemia E78.5 ; HTN (hypertension) I10 and Thoracic back pain, unspecified back pain laterality, unspecified chronicity M54.6 [place] [address] [place] [address] Jul, [place] [address] [place] [id number] [place] [address] Jul, [place] [id number] [place] [address] Jul, [place] [address] [place] [id number] [place] [address] Jul, Anxiety F41.9 [place] [address] [place] [id number] [place] [address] Jul, Thoracic back pain, unspecified back pain laterality, unspecified chronicity M54.6 and Anxiety F41.9 [place] [address] [place] [id number] [place] [address] Jun, Thoracic back pain, unspecified back pain laterality, unspecified chronicity M54.6 and Anxiety F41.9 [place] [address] [place] [id number] [place] [address] May, Thoracic back pain, unspecified back pain laterality, unspecified chronicity M54.6 and Anxiety F41.9 [place] [address] [place] [id number] [place] [address] Apr, Thoracic back pain, unspecified back pain laterality, unspecified chronicity M54.6 and Anxiety F41.9 [place] [address] [place] [id number] [place] [address] Mar, [place] [address] [address] Mar, Thoracic back pain, unspecified back pain laterality, unspecified chronicity M54.6 and Anxiety F41.9 [place] [address] [place] [id number] [place] [address] Mar, Thoracic back pain, unspecified back pain laterality, unspecified chronicity M54.6 ; HTN (hypertension) I10 ; Hyperlipidemia E78.5 and Anxiety F41.9 [place] [address] [place] [id number] [place] [address] Feb, Thoracic back pain, unspecified back pain laterality, unspecified chronicity M54.6 and Anxiety F41.9 [place] [address] [place] [id number] [place] [address] Nov, [place] [address] [address] Oct, [facility] [place] [address] [place] [id number] [place] [address] Oct, Thoracic back pain, unspecified back pain laterality, unspecified chronicity M54.6 [facility] [place] [address] [place] [id number] [place] [address] Oct, HTN (hypertension) I10 ; Constipation K59.00 ; Hyperlipidemia E78.5 ; Thoracic back pain, unspecified back pain laterality, unspecified chronicity M54.6 ; Chronic pain G89.29 ; Anxiety F41.9 ; Chronic kidney failure N18.9 ; Environmental allergies Z91.09 ; Vitamin D deficiency E55.9 and Primary insomnia F51.01 [facility] [place] [address] [place] [id number] [place] [address] Sep, Anxiety F41.9 [facility] [place] [address] [place] [id number] [place] [address] Sep, [facility] [place] [address] [place] [id number] [place] [address] August, Anxiety F41.9 [facility] [place] [address] [place] [id number] [place] [address] August, [facility] [place] [address] [place] [id number] [place] [address] Jul, Anxiety F41.9 [facility] [place] [address] [place] [id number] [place] [address] Jul, [facility] [place] [address] [place] [id number] [place] [address] Jun, Anxiety F41.9 [facility] [place] [address] [place] [id number] [place] [address] Jun, [facility] [place] [address] [place] [id number] [place] [address] May, [facility] [place] [address] [place] [address] May, [facility] [place] [id number] [place] [address] May, [facility] [place] [id number] [place] [address] Apr, [facility] [place] [id number] [place] [address] Apr, [facility] [place] [address] [place] [id number] [place] [address] Apr, Anxiety F41.9 [facility] [place] [address] [place] [id number] [place] [address] Apr, Anxiety F41.9 [facility] [place] [address] [place] [id number] [place] [address] Apr, [facility] [place] [address] [place] [id number] [place] [address] Mar, HTN (hypertension) I10 ; Tremor R25.1 ; Hypercholesterolemia E78.0 ; Constipation K59.00 ; Chronic pain G89.29 ; Hyperlipidemia E78.5 ; Insomnia G47.00 ; Anxiety F41.9 and Thoracic back pain, unspecified back pain laterality, unspecified chronicity M54.6 [facility] [place] [id number] [address] Mar, Tremor R25.1 ; HTN (hypertension) I10 ; Hypercholesterolemia E78.0 ; Constipation K59.00 ; Chronic pain G89.29 ; Hyperlipidemia E78.5 ; Insomnia G47.00 ; Anxiety F41.9 and Thoracic back pain, unspecified back pain laterality, unspecified chronicity M54.6 [facility] [place] [id number] [place] [address] Mar, [facility] [place] [id number] [place] [address] Mar, [facility] [place] [address] [place] [id number] [address] Feb, [facility] [place] [id number] [address] Jan, [facility] [place] [id number] [address] Jan, [facility] [place] [id number] [place] [address] Dec, [facility] [place] [id number] [place] [address] Nov, [facility] [place] [id number] [place] [address] Nov, [facility] [place] [id number] [place] [address] Oct, Anxiety F41.9 [facility] [place] [address] [place] [id number] [place] [address] Oct, Chronic pain G89.29 [facility] [place] [id number] [address] Sep, [facility] [place] [id number] [place] [address] Sep, [facility] [place] [id number] [address] Sep, [facility] [place] [id number] [address] Sep, [facility] [place] [id number] [address] 16 Sep, 2015 Chronic pain syndrome G89.4 [facility] [place] [id number] [address] Sep, HTN (hypertension) I10 ; Chronic pain G89.29 ; Hypercholesterolemia E78.0 ; Chronic kidney failure N18.9 ; Constipation, unspecified constipation type K59.00 ; Anxiety F41.9 and Thoracic back pain, unspecified back pain laterality, unspecified chronicity M54.6 [facility] [place] [address] [place] [id number] [place] [address] August, Chronic pain syndrome G89.4 [facility] [place] [address] [place] [id number] [place] [address] August, Chronic pain syndrome G89.4 [facility] [place] [address] [place] [id number] [place] [address] Jul, Anxiety disorder, unspecified F41.9 and Chronic pain syndrome G89.4 [facility] [place] [address] [place] [id number] [place] [address] Jul, Insomnia, unspecified G47.00 and Chronic pain syndrome G89.4 [facility] [place] [address] [place] [id number] [place] [address] Jul, Allergic rhinitis J30.9 [facility] [place] [address] [place] [id number] [place] [address] Jul, Constipation, unspecified K59.00 [facility] [place] [address] [place] [id number] [place] [address] Jul, [facility] [place] [address] [place] [id number] [place] [address] Jun, [facility] [place] [id number] [place] [address] Jun, [facility] [place] [address] [place] [id number] [place] [address] Jun, [facility] [place] [address] [place] [id number] [place] [address] Jun, [facility] [place] [address] [place] [id number] [place] [address] Jun, [facility] [place] [address] [place] [id number] [place] [address] Jun, [facility] [place] [address] [place] [id number] [place] [address] May, [facility] [place] [address] [place] [id number] [place] [address] May, [facility] [place] [address] [place] [id number] [place] [address] May, Anxiety F41.9 ; Insomnia G47.00 ; Hyperlipidemia E78.5 ; Chronic pain G89.29 ; HTN (hypertension) I10 ; Environmental allergies V15.09 and Constipation 564.00 [facility] [place] [address] [place] [id number] [place] [address] Apr, [facility] [place] [address] [place] [address] [id number] [place] [address] Apr, [facility] [place] [address] [id number] [place] [address] Apr, [facility] [place] [address] [id number] [place] [address] Mar, [facility] [place] [id number] [place] [address] Mar, [facility] [place] [id number] [place] [phone] Mar, [facility] [place] [id number] [place] [address] Feb, [facility] [place] [id number] [place] [address] Feb, [facility] [place] [id number] [place] [address] Feb, [facility] [place] [id number] [place] [address] 15 Jan, 2015 HTN (hypertension) I10 ; Constipation K59.00 ; Chronic pain G89.29 ; Hyperlipidemia E78.5 ; Hypercholesterolemia E78.0 ; Insomnia G47.00 and Anxiety F41.9 [facility] [place], [facility] [id number] [address] Jan, [facility] [place], [facility] [id number] [address] Dec, [facility] [place], [facility] [id number] [address] Nov, [facility] [place], [facility] [id number] [place] [id number] Oct, Chronic kidney disease, unspecified 585.9 ; Chronic pain syndrome 338.4 ; Hyperlipidemia 272.4 and Essential hypertension 401.9 [facility] [place], [facility] [id number] [place] [id number] Oct, Chronic kidney disease 585.9 [facility] [place], [facility] [id number] [address] Oct, [facility] [place], [facility] [id number] [place] [id number] Oct, Chronic kidney disease, unspecified 585.9 ; Hypercalcemia 275.42 ; Hyperlipidemia 272.4 ; Essential hypertension 401.9 ; Chronic pain syndrome 338.4 ; Insomnia 780.52 ; Constipation 564.00 ; Environmental allergies V15.09 and Anxiety 300.00 [facility] [place], [facility] [id number] [address] Oct, Chronic kidney disease 585.9 [facility] [place], [facility] [id number] [address] Oct, [facility] [place], [facility] [id number] [address] Oct, Chronic kidney disease 585.9 and Hyperlipidemia 272.4 [facility] [place], [facility] [id number] [address] Oct, [facility] [place], [facility] [id number] [address] Oct, [facility] [place], [facility] [address] [facility]NOTE 3] [id number] [place] [address] 18 Sep, 2014 [facility] [address] [id number] [address] Sep, [facility] [place] [facility] [address] [facility] [id number] [place] [address] 15 Sep, 2014 Chronic kidney disease 585.9 and Hyperlipidemia 272.4 [facility] [place] [facility] [address] [id number] [place] [address] Sep, [facility] [address] [id number] [place] [address] August, [facility] [address] [id number] [place] [address] August, [facility] [address] [facility]NOTE 3] [id number] [place] [address] Jul, [facility] [address] [facility]NOTE 3] [id number], [place] [address] Jul, [facility] [address] [id number] [place] [address] Jun, [facility] [address] [facility]NOTE 3] [id number], [place] [address] Jun, [facility] [place] [facility] [address] [id number], [place] [address] Jun, [facility] [place] [facility] [address] [id number], [place] [address] Jun, [facility] [place] [facility] [address] [id number] [place] [address] Jun, [facility] [place] [facility] [address] [id number], [place] [address] Jun, [facility] [place] [facility] [address] [facility]NOTE [facility]] [id number] [place] [address] Jun, [facility] [place] [facility] [address] [id number] [place] [address] Jun, [facility] [place] [facility] [address] [id number] [place] [address] May, [facility] [place] [facility] [address] [id number] [place] [address] May, [facility] [place] [facility] [address] [id number] [place] [address] May, [facility] [place] [facility] [address] [id number] [place] [address] May, [facility] [place] [facility] [address] [id number] [place] [address] Apr, [facility] [place] [facility] [address] [id number] [place] [address] Apr, [facility] [place] [facility] [address] [id number] [place] [address] Apr, [facility] [place] [facility] [address] [id number] [place] [address] Apr, [facility] [place] [facility] [address] [id number] [place] [address] Apr, [facility] [place] [facility] [address] [id number] [place] [address] Apr, [facility] [place] [facility] [address] [id number] [place] [address] Apr, [facility] [place] [facility] [address] [id number] [place] [address] Apr, [facility] [place] [facility] [address] [id number] [place] [address] Apr, [facility] [place] [facility] [address] [id number] [place] [address] Apr, [facility] [place] [facility] [address] [id number] [place] [address] Apr, [facility] [place] [facility] [address] [id number] [place] [address] Mar, [facility] [place] [facility] [address] [id number] [place] [address] Mar, [facility] [place] [facility] [address] [id number] [place] [address] Feb, [facility] [place] [facility] [address] [id number] [place] [address] Feb, [facility] [place] [facility] [address] [id number] [place] [address] Feb, [facility] [place] [facility] [address] [id number] [place] [address] Feb, [facility] [place] [facility] [address] [id number] [place] [address] Feb, [facility] [place] [facility] [address] [id number] [place] [address] Feb, [facility] [place] [facility] [address] [id number] [place] [address] Feb, [facility] [place] [facility] [address] [id number] [place] [address] Feb, [facility] [place] [facility] [address] [id number] [place] [address] Feb, [facility] [place] [facility] [address] [id number], [place] [address] Feb, [facility] [place] [facility] [address] [id number] [place] [address] Jan, [facility] [place] [facility] [address] [id number] [place] [address] Jan, [facility] [place] [facility] [address] [id number], [place] [address] Jan, [facility] [place] [facility] [address] [id number], [place] [address] Jan, [facility] [place] [facility] [address] [id number] [place] [address] Jan, [facility] [place] [facility] [address] [id number] [place] [address] Jan, [facility] [place] [facility] [address] [id number] [place] [address] Jan, [facility] [place] [facility] [address] [id number] [place] [address] Jan, [facility] [place] [facility] [address] [id number] [place] [address] 16 Jan, 2014 [facility] [place] [facility] [address] [id number] [place] [address] Jan, [facility] [place] [facility] [address] [id number] [place] [address] Jan, [facility] [place] [facility] [address] [id number] [place] [address] 26 Dec, 2013 [facility] [place] [facility] [address] [id number] [place] [address] 26 Dec, 2013 [facility] [place] [facility] [address] [id number] [place] [address] 19 Dec, 2013 [facility] [place] [facility] [address] [id number], [place] [address] 19 Dec, 2013 [facility] [place] [facility] [address] [id number], [place] [address] 18 Dec, 2013 [facility] [place] [facility] [address] [id number] [place] [address] 18 Dec, 2013 [facility] [place] [facility] [address] [id number] [place] [address] 03 Sep, 2013 [facility] [place] [facility] [address] [id number] [place] [address] 03 Sep, 2013 [facility] [place] [facility] [address] [id number] [place] [address] Nov, [facility] [place] [facility] [address] [id number] [place] [address] Nov, [facility] [place] [facility] [address] [id number] [place] [address] Nov, [facility] [place] [facility] [address] [id number] [place] [address] Nov, [facility] [place] [facility] [address] [id number] [place] [address] Nov, [facility] [place] [facility] [address] [id number] [place] [address] Nov, [facility] [place] [facility] [address] [id number] [place] [address] Nov, [facility] [place] [facility] [address] [id number] [place] [address] Nov, [facility] [place] [facility] [address] [id number] [place] [address] Oct, [facility] [place] [facility] [address] [id number] [place] [address] Oct, [facility] [place] [facility] [address] [id number] [place] [address] Oct, [facility] [place] [facility] [address] [id number] [place] [address] Oct, [facility] [place] [facility] [address] [id number] [place] [address] Sep, [facility] [place] [facility] [address] [id number] [place] [address] Sep, [facility] [place] [facility] [address] [id number] [place] [address] Sep, [facility] [place] [facility] [address] [id number] [place] [address] Sep, [facility] [place] [facility] [address] [id number] [place] [address] Sep, [facility] [place] [facility] [address] [id number] [place] [address] Sep, [facility] [place] [facility] [address] [id number] [place] [address] Sep, [facility] [place] [facility] [address] [id number] [place] [address] Sep, [facility] [place] [facility] [address] [id number] [place] [address] August, [facility] [place] [facility] [address] [id number] [place] [address] August, [facility] [place] [facility] [address] [id number] [place] [address] August, [facility] [place] [facility] [address] [id number] [place] [address] August, [facility] [place] [facility] [address] [id number] [place] [address] August, [facility] [place] [facility] [address] [id number] [place] [address] August, [facility] [place] [facility] [address] [id number] [place] [address] August, [facility] [place] [facility] [address] [id number] [place] [address] August, [facility] [place] [facility] [address] [id number] [place] [address] August, [facility] [place] [facility] [address] [id number] [place] [address] August, [facility] [place] [facility] [address] [id number] [place] [address] Jul, [facility] [place] [facility] [address] [id number] [place] [address] Jul, [facility] [place] [facility] [address] [id number] [place] [address] Jul, [facility] [place] [facility] [address] [id number] [place] [address] Jul, [facility] [place] [facility] [address] [id number] [place] [address] Jul, [facility] [place] [facility] [address] [id number] [place] [address] Jul, [facility] [place] [facility] [address] [id number] [place] [address] Jul, [facility] [place] [facility] [address] [id number] [place] [address] Jul, [facility] [place] [facility] [address] [id number] [place] [address] Jun, [facility] [place] [facility] [address] [id number] [place] [address] Jun, [facility] [place] [facility] [address] [id number] [place] [address] Jun, [facility] [place] [facility] [address] [facility]NOTE 3] [id number] [place] [address] Jun, [facility] [place] [facility] [address] [id number] [place] [address] Jun, [facility] [place] [facility] [address] [id number] [place] [address] Jun, [facility] [place] [facility] [address] [id number] [place] [address] May, [facility] [place] [facility] [address] [id number] [place] [address] May, [facility] [place] [facility] [address] [id number] [place] [address] May, [facility] [place] [facility] [address] [id number] [place] [address] May, [facility] [place] [facility] [address] [id number] [place] [address] May, [facility] [place] [facility] [address] [id number] [place] [address] May, [facility] [place] [facility] [address] [id number] [place] [address] May, [facility] [place] [facility] [address] [id number] [place] [address] Apr, [facility] [place] [facility] [address] [id number] [place] [address] Apr, [facility] [place] [facility] [address] [id number] [place] [address] Apr, [facility] [place] [facility] [address] [id number] [place] [address] Apr, [facility] [place] [facility] [address] [id number] [place] [address] Apr, [facility] [place] [facility] [address] [id number] [place] [address] Apr, [facility] [place] [facility] [address] [id number] [place] [address] Mar, [facility] [place] [facility] [address] [id number] [place] [address] Mar, [facility] [place] [facility] [address] [id number] [place] [address] Mar, [facility] [place] [facility] [address] [id number] [place] [address] Mar, [facility] [place] [facility] [address] [id number] [place] [address] Mar, [facility] [place] [facility] [address] [id number], [place] [address] 19 Mar, 2013 [facility] [address] [id number] [place] [address] 16 Mar, 2013 [facility] [place] [facility] [address] [id number] [place] [address] 16 Mar, 2013 [facility] [address] [id number] [place] [address] 12 Mar, 2013 [facility] [place] [facility] [address] [id number] [place] [address] Mar, [facility] [address] [id number] [place] [address] Feb, [facility] [place] [facility] [address] [id number] [place] [address] Feb, [facility] [address] [id number], [place] [address] Feb, [facility] [place] [facility] [address] [id number], [place] [address] Feb, [facility] [address] [id number] [place] [address] 14 Feb, 2013 [facility] [place] [facility] [address] [facility]NOTE 3] [id number], [place] [address] 14 Feb, 2013 [facility] [address] [id number], [place] [address] Feb, [facility] [place] [facility] [address] [id number], [place] [address] Feb, [facility] [place] [facility] [address] [id number], [place] [address] 08 Feb, 2013 [facility] [place] [facility] [address] [id number], [place] [address] 08 Feb, 2013 [facility] [place] [facility] [address] [id number], [place] [address] Jan, [facility] [place] [facility] [address] [id number] [place] [address] Jan, [facility] [place] [facility] [address] [id number] [place] [address] Jan, [facility] [place] [facility] [address] [id number] [place] [address] Jan, [facility] [place] [facility] [address] [id number] [place] [address] Jan, [facility] [place] [facility] [address] [id number] [place] [address] Jan, [facility] [place] [facility] [address] [id number] [place] [address] Jan, [facility] [place] [facility] [address] [id number] [place] [address] Jan, [facility] [place] [facility] [address] [id number] [place] [address] Jan, [facility] [place] [facility] [address] [id number] [place] [address] Dec, [facility] [place] [facility] [address] [id number] [place] [address] Dec, [facility] [place] [facility] [address] [id number] [place] [address] Dec, [facility] [place] [facility] [address] [id number] [place] [address] Dec, [facility] [place] [facility] [address] [id number] [place] [address] Nov, [facility] [place] [facility] [address] [id number] [place] [address] Nov, [facility] [place] [facility] [address] [id number] [place] [address] Nov, [facility] [place] [facility] [address] [id number] [place] [address] Nov, [facility] [address] [id number] [place] [address] Nov, [facility] [place] [facility] [address] [id number] [place] [address] Nov, [facility] [place] [facility] [address] [id number] [place] [address] Oct, [facility] [place] [facility] [address] [id number] [place] [address] Oct, [facility] [place] [facility] [address] [id number] [place] [address] Oct, [facility] [place] [facility] [address] [id number] [place] [address] Oct, [facility] [place] [facility] [address] [id number] [place] [address] Sep, [facility] [place] [facility] [address] [id number] [place] [address] Sep, [facility] [place] [facility] [address] [id number] [place] [address] Sep, [facility] [place] [facility] [address] [id number] [place] [address] Sep, [facility] [place] [facility] [address] [id number], [place] [address] Sep, [facility] [place] [facility] [address] [id number], [place] [address] August, [facility] [place] [facility] [address] [id number] [place] [address] August, [facility] [place] [facility] [address] [id number] [place] [address] Jul, [facility] [place] [facility] [address] [id number] [place] [address] Jul, [facility] [place] [facility] [address] [id number] [place] [address] 15 Jul, 2012 [facility] [address] [id number] [place] [address] 09 Jul, 2012 [facility] [place] [facility] [address] [id number] [place] [address] 08 Jul, 2012 [facility] [address] [id number] [place] [address] 26 Jun, 2012 [facility] [place] [facility] [address] [id number] [place] [address] Jun, [facility] [address] [id number] [place] [address] 15 Jun, 2012 [facility] [address] [facility] 3] [id number] [place] [address] Jun, [facility] [address] [facility]NOTE 3] [id number] [place] [address] Jun, [facility] [address] [facility]NOTE 3] [id number] [place] [address] 28 May, 2012 [facility] [id number] [place] [address] 27 May, 2012 [facility] [address] [facility] 3] [id number] [place] [address] 25 May, 2012 [facility] [place] [facility] [address] [facility]NOTE 3] [id number] [place] [address] 21 May, 2012 [facility] [address] [facility]NOTE 3] [id number] [place] [address] 20 May, 2012 [facility] [place] [facility] [address] [id number] [place] [address] 14 May, 2012 [facility] [place] [facility] [address] [facility]NOTE 3] [id number] [place] [address] 13 May, 2012 [facility] [place] [facility] [address] [facility]NOTE 3] [id number] [place] [address] May, [facility] [address] [id number] [place] [address] May, [facility] [address] [id number] [place] [address] Apr, [facility] [place] [facility] [address] [facility]NOTE [address]] [id number] [place] [address] Apr, [facility] [place] [facility] [address] [id number] [place] [address] Apr, [facility] [address] [id number] [place] [address] Apr, [facility] [address] [id number] [place] [address] Apr, [facility] [address] [id number] [place] [address] Mar, [facility] [place] [facility] [address] [id number] [place] [address] Mar, [facility] [address] [id number] [place] [address] Mar, [facility] [place] [facility] [address] [id number] [place] [address] Mar, [facility] [place] [facility] [address] [id number] [place] [address] Mar, [facility] [place] [facility] [address] [id number], [place] [address] Mar, [facility] [place] [facility] [address] [id number] [place] [address] Mar, [facility] [place] [facility] [address] [id number] [place] [address] Mar, [facility] [place] [facility] [address] [facility]NOTE 3] [id number] [place] [address] Mar, [facility] [place] [facility] [address] [id number] [place] [address] Mar, [facility] [address] [id number] [place] [address] 30 Feb, 2012 [facility] [place] [facility] [address] [id number] [place] [address] Feb, [facility] [place] [facility] [address] [id number] [place] [address] Feb, [facility] [place] [facility] [address] [id number] [place] [address] Feb, [facility] [place] [facility] [address] [id number] [place] [address] Feb, [facility] [place] [facility] [address] [id number] [place] [address] Feb, [facility] [place] [facility] [address] [id number] [place] [address] Feb, [facility] [place] [facility] [address] [id number] [place] [address] Feb, [facility] [place] [facility] [address] [id number] [place] [address] Feb, [facility] [place] [facility] [address] [id number] [place] [address] 16 Feb, 2012 [facility] [place] [facility] [address] [id number] [place] [address] Feb, [facility] [place] [facility] [address] [id number] [place] [address] Feb, [facility] [place] [facility] [address] [id number] [place] [address] Feb, [facility] [place] [facility] [address] [id number] [place] [address] Feb, [facility] [place] [facility] [address] [id number] [place] [address] Feb, [facility] [place] [facility] [address] [id number] [place] [address] 08 Feb, 2012 [facility] [place] [facility] [address] [id number] [place] [address] Feb, [facility] [place] [facility] [address] [id number] [place] [address] Feb, [facility] [place] [facility] [address] [id number] [place] [address] Jan, [facility] [place] [facility] [address] [id number] [place] [address] Jan, [facility] [place] [facility] [address] [id number] [place] [address] Jan, [facility] [place] [facility] [address] [id number] [place] [address] Jan, [facility] [place] [facility] [address] [id number], [place] [address] Jan, [facility] [place] [facility] [address] [id number] [place] [address] Jan, [facility] [place] [facility] [address] [id number], [place] [address] Jan, [facility] [place] [facility] [address] [facility]NOTE 3] [id number], [place] [address] Jan, [facility] [place] [facility] [address] [id number], [place] [address] Jan, [facility] [place] [facility] [address] [id number], [place] [address] Jan, [facility] [place] [facility] [address] [id number], [place] [address] 24 Dec, 2011 [facility] [place] [facility] [address] [id number], [place] [address] 18 Dec, 2011 [facility] [place] [facility] [address] [id number], [place] [address] Dec, [facility] [place] [facility] [address] [id number] [place] [address] Dec, [facility] [place] [facility] [address] [id number] [place] [address] Nov, [facility] [place] [facility] [address] [id number] [place] [address] Nov, [facility] [place] [facility] [address] [id number] [place] [address] Nov, [facility] [place] [facility] [address] [id number] [place] [address] Nov, [facility] [place] [facility] [address] [id number] [place] [address] Nov, [facility] [place] [facility] [address] [id number] [place] [address] Nov, [facility] [place] [facility] [address] [id number] [place] [address] Oct, [facility] [place] [facility] [address] [id number] [place] [address] Oct, [facility] [place] [facility] [address] [id number] [place] [address] Oct, [facility] [place] [facility] [address] [id number] [place] [address] Oct, [facility] [place] [facility] [address] [id number] [place] [address] Oct, [facility] [place] [facility] [address] [id number] [place] [address] Sep, [facility] [place] [facility] [address] [id number] [place] [address] Sep, [facility] [place] [facility] [address] [id number] [place] [address] Sep, [facility] [place] [facility] [address] [id number] [place] [address] 07 Sep, 2011 [facility] [address] [id number] [place] [address] Sep, [facility] [place] [facility] [address] [id number] [place] [address] August, [facility] [address] [id number] [place] [address] August, [facility] [address] [id number] [place] [address] August, [facility] [address] [id number] [place] [address] August, [facility] [address] [id number] [place] [address] Jul, [facility] [address] [id number] [place] [address] Jul, [facility] [address] [id number] [place] [address] Jul, [facility] [address] [id number] [place] [address] Jul, [facility] [address] [id number] [place] [address] Jul, [facility] [place] [facility] [address] [id number] [place] [address] 12 Jul, 2011 [facility] [place] [facility] [address] [id number] [place] [address] 11 Jul, 2011 [facility] [place] [facility] [address] [id number] [place] [address] 10 Jul, 2011 [facility] [place] [facility] [address] [id number] [place] [address] 09 Jul, 2011 [facility] [place] [facility] [address] [id number] [place] [address] Jul, [facility] [address] [id number] [place] [address] 05 Jul, 2011 [facility] [place] [facility] [address] [id number] [place] [address] Jul, [facility] [place] [facility] [address] [id number] [place] [address] Jul, [facility] [place] [facility] [address] [id number] [place] [address] Jul, [facility] [place] [facility] [address] [id number] [place] [address] Jun, [facility] [place] [facility] [address] [id number] [place] [address] Jun, [facility] [place] [facility] [address] [id number] [place] [address] Jun, [facility] [place] [facility] [address] [id number] [place] [address] Jun, [facility] [place] [facility] [address] [id number] [place] [address] May, [facility] [place] [facility] [address] [id number] [place] [address] May, [facility] [place] [facility] [address] [id number] [place] [address] May, [facility] [place] [facility] [address] [id number] [place] [address] Apr, [facility] [place] [facility] [address] [id number] [place] [address] Apr, [facility] [place] [facility] [address] [id number] [place] [address] 13 Apr, 2011 [facility] [place] [facility] [address] [id number] [place] [address] Apr, [facility] [place] [facility] [address] [id number] [place] [address] 09 Apr, 2011 [facility] [address] [id number] [place] [address] Mar, [facility] [place] [facility] [address] [id number] [place] [address] Mar, [facility] [place] [facility] [address] [id number] [place] [address] Mar, [facility] [place] [facility] [address] [id number] [place] [address] Mar, [facility] [place] [facility] [address] [id number] [place] [address] Mar, [facility] [place] [facility] [address] [id number] [place] [address] Mar, [facility] [place] [facility] [address] [id number] [place] [address] Mar, [facility] [place] [facility] [address] [id number] [place] [address] Feb, [facility] [place] [facility] [address] [id number] [place] [address] 25 Feb, 2011 [facility] [place] [facility] [address] [id number] [place] [address] Feb, [facility] [place] [facility] [address] [id number] [place] [address] Feb, [facility] [place] [facility] [address] [id number] [place] [address] 16 Feb, 2011 [facility] [place] [facility] [address] [id number] [place] [address] 14 Feb, 2011 [facility] [place] [facility] [address] [id number] [place] [address] 10 Feb, 2011 [facility] [place] [facility] [address] [id number] [place] [address] 31 Jan, 2011 [facility] [place] [facility] [address] [id number] [place] [address] 31 Jan, 2011 [facility] [address] [id number] [place] [address] 31 Jan, 2011 [facility] [place] [facility] [address] [id number] [place] [address] 18 Jan, 2011 [facility] [place] [facility] [address] [id number] [place] [address] 17 Jan, 2011 [facility] [address] [id number] [place] [address] 17 Jan, 2011 [facility] [address] [id number] [place] [address] 17 Jun, 2010 [facility] [address] [id number] [place] [address] 30 Mar, 2010 [facility] [address] [id number] [place] [address] 20 Mar, 2010 [facility] [address] [id number] [place] [address] 14 Mar, 2010 [facility] [place] [facility] [address] [id number] [place] [address] 14 Mar, 2010 [facility] [place] [facility] [address] [id number] [place] [address] 13 Mar, 2010 [facility] [place] [facility] [address] [id number] [place] [address] 07 Mar, 2010 [facility] [place] [facility] [address] [id number] [place] [address] 02 Mar, 2010 [facility] [place] [facility] [address] [id number] [place] [address] Mar, [facility] [place] [facility] [address] [id number] [place] [address] 30 Feb, 2010 [facility] [place] [facility] [address] [id number], [place] [address] 29 Feb, 2010 [facility] [place] [facility] [address] [id number] [place] [address] 17 Feb, 2010 [facility] [place] [facility] [address] [id number] [place] [address] 17 Feb, 2010 [facility] [place] [facility] [address] [id number] [place] [address] 16 Feb, 2010 [facility] [place] [facility] [address] [id number] [place] [address] 08 Feb, 2010 [facility] [place] [facility] [address] [id number] [place] [address] 04 Feb, 2010 [facility] [place] [facility] [address] [id number] [place] [address] Feb, [facility] [place] [facility] [address] [id number] [place] [address] Jan, [facility] [place] [facility] [address] [id number] [place] [address] Jan, [facility] [place] [facility] [address] [id number] [place] [address] 25 Jan, 2010 [facility] [place] [facility] [address] [id number] [place] [address] Jan, [facility] [place] [facility] [address] [id number], [place] [address] 29 Mar, 2009 [facility] [place] [facility] [address] [id number], [place] [address] 22 Mar, 2009 [facility] [place] [facility] [address] [id number] [place] [address] 19 Mar, 2009 [facility] [place] [facility] [address] [id number] [place] [address] 19 Mar, 2009 [facility] [place] [facility] [address] [id number] [place] [address] 14 Mar, 2009 [facility] [place] [facility] [address] [facility]] [id number] [place] [address] Mar, [facility] [place] [address] [id number], [place] [address] Feb, [facility] [place] [address] [id number], [place] [address] Feb, [facility] [place] [address] [id number], [place] [address] Jan, [facility] [place] [address] [id number], [place] [address] Sep, [facility] [place] [address] [id number], [place] [address] May, IMMUNIZATIONS No Known Immunizations SOCIAL HISTORY Never Assessed [place] [place] [...] Surgical History Left ear surgery Hospitalization History [facility] [place]- Spontaneous Pneumothorax Hospitalization History [facility]- Colon resection Hospitalization History via [facility] department - diarrhea/ couldnt urinate nov 2017
--- OUTSIDE RECORDS SUMMARY | 2018-10-15 01:07 | XMS REPORT ---
Author Author Migration, Doctor Organization [facility] Address Unknown Phone Unavailable Care Team Providers Care Carnival Worker Name Role Phone Migration, Doctor Unavailable Unavailable PROBLEMS Type Condition ICD9-CM Code NMN58-HV Code Onset Dates Condition Status SNOMED Code Problem Constipation K59.00 Active 02459031 Problem Chronic pain G89.29 Active 39604684 Problem Hyperlipidemia E78.5 Active 78527718 Problem Insomnia G47.00 Active 184300387 Problem Chronic kidney disease, stage III (moderate) N18.3 Active 715393005 Problem Anxiety F41.9 Active 10711959 Problem Vision loss H54.7 Active 570659214 Problem HTN (hypertension) I10 Active 53479650 Problem Thoracic back pain, unspecified back pain laterality, unspecified chronicity M54.6 Active 172983015 Problem Vitamin D deficiency E55.9 Active 54942991 Problem Environmental allergies Z91.09 Active 693688523 Problem Primary insomnia F51.01 Active 0181314 ALLERGIES No Information ENCOUNTERS Encounter Location Date Diagnosis [place] [address] [address] Jul, [place] [address] [address] Jul, Thoracic back pain, unspecified back pain laterality, unspecified chronicity M54.6 [place] [address] [place] [id number] [place] [address] Jun, Anxiety F41.9 and Thoracic back pain, unspecified back pain laterality, unspecified chronicity M54.6 [place] [address] [address] Jun, Anxiety F41.9 and Thoracic back pain, unspecified back pain laterality, unspecified chronicity M54.6 [place] [address] [address] Jun, Thoracic back pain, unspecified back pain laterality, unspecified chronicity M54.6 [place] [address] [id number] [place] [address] Jun, Anxiety F41.9 and Thoracic back pain, unspecified back pain laterality, unspecified chronicity M54.6 [place] [address] [address] May, [place] [address] [address] May, [place] [address] [address] May, [place] [address] [address] May, Anxiety F41.9 and Encounter for medication monitoring Z51.81 [place] [address] [address] May, Anxiety F41.9 and Thoracic back pain, unspecified back pain laterality, unspecified chronicity M54.6 [place] [address] [address] Apr, Hyperlipidemia 272.4 [place] [address] [place] [id number] [place] [address] Apr, Chronic pain G89.29 ; Anxiety F41.9 ; Cervical radiculopathy M54.12 and Vision loss H54.7 [place] [address] [id number] [place] [address] Apr, [place] [address] [address] Apr, Anxiety F41.9 and Thoracic back pain, unspecified back pain laterality, unspecified chronicity M54.6 [place] [address] [place] [id number] [place] [address] Mar, [facility] [id number] [place] [address] 10 Mar, 2018 Anxiety F41.9 and Thoracic back pain, unspecified back pain laterality, unspecified chronicity M54.6 [place] [address] [id number] [place] [address] 14 Feb, 2018 Anxiety F41.9 and Thoracic back pain, unspecified back pain laterality, unspecified chronicity M54.6 [place] [address] [place] [id number] [place] [address] 07 Feb, 2018 Thoracic back pain, unspecified back pain laterality, unspecified chronicity M54.6 [place] [address] [place] [id number] [place] [address] 29 Jan, 2018 [place] [address] [id number] [place] [address] 16 Jan, 2018 Anxiety F41.9 and Thoracic back pain, unspecified back pain laterality, unspecified chronicity M54.6 [place] [address] [place] [id number] [place] [address] 19 Dec, 2017 Diarrhea of presumed infectious origin R19.7 [place] [address] [place] [id number] [place] [address] 19 Dec, 2017 Diarrhea of presumed infectious origin R19.7 [place] [address] [place] [id number] [place] [address] 18 Dec, 2017 Thoracic back pain, unspecified back pain laterality, unspecified chronicity M54.6 [place] [address] [place] [id number] [place] [address] 17 Dec, 2017 [place] [address] [place] [id number] [place] [address] 17 Dec, 2017 Anxiety F41.9 and Thoracic back pain, unspecified back pain laterality, unspecified chronicity M54.6 [place] [address] [place] [id number] [place] [address] Dec, Diarrhea of presumed infectious origin R19.7 [place] [address] [address] Dec, [place] [id number] [place] [address] Dec, Anxiety F41.9 and Thoracic back pain, unspecified back pain laterality, unspecified chronicity M54.6 [place] [id number] [place] [address] Dec, Anxiety F41.9 and Thoracic back pain, unspecified back pain laterality, unspecified chronicity M54.6 [facility] [address] [place] [id number] Dec, Diarrhea of presumed infectious origin R19.7 ; Anxiety F41.9 ; Thoracic back pain, unspecified back pain laterality, unspecified chronicity M54.6 and HTN (hypertension) I10 [place] [id number] [place] [address] Dec, Anxiety F41.9 [facility] [address] [place] [id number] Dec, Anxiety F41.9 ; Diarrhea of presumed infectious origin R19.7 ; Generalized abdominal pain R10.84 and Localized edema R60.[address] [place] [address] Nov, [facility] [address] [place] [id number] Nov, Anxiety F41.9 ; Urinary retention R33.9 ; Diarrhea of presumed infectious origin R19.7 ; Weakness R53.1 ; Acute kidney failure, unspecified N17.9 ; Chronic kidney disease, stage III (moderate) N18.3 and Thoracic back pain, unspecified back pain laterality, unspecified chronicity M54.6 [address] [address] Oct, Thoracic back pain, unspecified back pain laterality, unspecified chronicity M54.6 and Anxiety F41.9 [place] [address], [place] [address] Sep, Thoracic back pain, unspecified back pain laterality, unspecified chronicity M54.[address] [facility] [address] [place] [id number] [place] [address] 04 Sep, 2017 Thoracic back pain, unspecified back pain laterality, unspecified chronicity M54.6 ; Anxiety F41.9 and Encounter for medication monitoring Z51.81 [place] [address] [place] [id number] [place] [address] August, [place] [address] [address] August, Thoracic back pain, unspecified back pain laterality, unspecified chronicity M54.6 and Anxiety F41.9 [place] [address] [place] [id number] [place] [address] August, Hyperlipidemia E78.5 and HTN (hypertension) I10 [place] [address] [place] [id number] [place] [address] August, [place] [address] [place] [id number] [place] [address] August, Medicare welcome exam Z00.00 ; Chronic kidney failure N18.9 ; Anxiety F41.9 ; Chronic pain G89.29 ; Insomnia G47.00 ; Hyperlipidemia E78.5 ; HTN (hypertension) I10 and Thoracic back pain, unspecified back pain laterality, unspecified chronicity M54.6 [place] [id number] [place] [address] Jul, [place] [address] [place] [id number] [place] [address] Jul, [place] [id number] [place] [address] Jul, [place] [address] [place] [id number] [place] [address] Jul, Anxiety F41.9 [place] [address] [place] [id number] [place] [address] Jul, Thoracic back pain, unspecified back pain laterality, unspecified chronicity M54.6 and Anxiety F41.9 [place] [address] [place] [id number] [place] [address] Jun, Thoracic back pain, unspecified back pain laterality, unspecified chronicity M54.6 and Anxiety F41.9 [place] [address] [place] [id number] [place] [address] May, Thoracic back pain, unspecified back pain laterality, unspecified chronicity M54.6 and Anxiety F41.9 [place] [address] [place] [id number] [place] [address] Apr, Thoracic back pain, unspecified back pain laterality, unspecified chronicity M54.6 and Anxiety F41.9 [place] [address] [place] [id number] [place] [address] Mar, [place] [address] [address] Mar, Thoracic back pain, unspecified back pain laterality, unspecified chronicity M54.6 and Anxiety F41.9 [place] [address] [place] [id number] [place] [address] Mar, Thoracic back pain, unspecified back pain laterality, unspecified chronicity M54.6 ; HTN (hypertension) I10 ; Hyperlipidemia E78.5 and Anxiety F41.9 [place] [address] [place] [id number] [place] [address] Feb, Thoracic back pain, unspecified back pain laterality, unspecified chronicity M54.6 and Anxiety F41.9 [place] [address] [place] [id number] [place] [address] Nov, [place] [address] [address] Oct, [facility] [address] [place] [id number] [place] [address] Oct, Thoracic back pain, unspecified back pain laterality, unspecified chronicity M54.6 [facility] [address] [place] [id number] [place] [address] Oct, HTN (hypertension) I10 ; Constipation K59.00 ; Hyperlipidemia E78.5 ; Thoracic back pain, unspecified back pain laterality, unspecified chronicity M54.6 ; Chronic pain G89.29 ; Anxiety F41.9 ; Chronic kidney failure N18.9 ; Environmental allergies Z91.09 ; Vitamin D deficiency E55.9 [address] Primary insomnia F51.01 [facility] [address] [place] [id number] [place] [address] Sep, Anxiety F41.9 [facility] [address] [place] [id number] [place] [address] Sep, [facility] [address] [place] [id number] [place] [address] August, Anxiety F41.9 [facility] [address] [place] [id number] [place] [address] August, [facility] [address] [place] [id number] [place] [address] Jul, Anxiety F41.9 [facility] [address] [place] [id number] [place] [address] Jul, [facility] [address] [place] [id number] [place] [address] Jun, Anxiety F41.9 [facility] [address] [place] [id number] [place] [address] Jun, [facility] [address] [place] [id number] [place] [address] May, [facility] [address] [place] [address] May, [facility] [id number] [place] [address] May, [facility] [id number] [place] [address] Apr, [facility] [id number] [place] [address] Apr, [facility] [address] [place] [id number] [place] [address] Apr, Anxiety F41.9 [facility] [address] [place] [id number] [place] [address] Apr, Anxiety F41.9 [facility] [address] [place] [id number] [place] [address] Apr, [facility] [address] [place] [id number] [place] [address] Mar, HTN (hypertension) I10 ; Tremor R25.1 ; Hypercholesterolemia E78.0 ; Constipation K59.00 ; Chronic pain G89.29 ; Hyperlipidemia E78.5 ; Insomnia G47.00 ; Anxiety F41.9 and Thoracic back pain, unspecified back pain laterality, unspecified chronicity M54.6 [facility] [address], [place] [address] Mar, Tremor R25.1 ; HTN (hypertension) I10 ; Hypercholesterolemia E78.0 ; Constipation K59.00 ; Chronic pain G89.29 ; Hyperlipidemia E78.5 ; Insomnia G47.00 ; Anxiety F41.9 and Thoracic back pain, unspecified back pain laterality, unspecified chronicity M54.6 [facility] [id number] [place] [address] Mar, [facility] [id number] [place] [address] Mar, [facility] [address] [place] [address] [address] Feb, [facility] [address] [address] Jan, [facility] [address] [address] Jan, [facility] [id number] [place] [address] Dec, [facility] [id number] [place] [address] Nov, [facility] [id number] [place] [address] Nov, [facility] [id number] [place] [address] Oct, Anxiety F41.9 [facility] [address] [place] [id number] [place] [address] Oct, Chronic pain G89.29 [facility] [address], [place] [address] Sep, [facility] [id number] [place] [address] Sep, [facility] [address] [address] Sep, [facility] [address], [place] [address] Sep, [facility] [address], [place] [address] 16 Sep, 2015 Chronic pain syndrome G89.4 [facility] [address], [place] [address] Sep, HTN (hypertension) I10 ; Chronic pain G89.29 ; Hypercholesterolemia E78.0 ; Chronic kidney failure N18.9 ; Constipation, unspecified constipation type K59.00 ; Anxiety F41.9 and Thoracic back pain, unspecified back pain laterality, unspecified chronicity M54.6 [facility] [address] [place] [id number] [place] [address] August, Chronic pain syndrome G89.4 [facility] [address] [place] [id number] [place] [address] August, Chronic pain syndrome G89.4 [facility] [address] [place] [id number] [place] [address] Jul, Anxiety disorder, unspecified F41.9 and Chronic pain syndrome G89.4 [facility] [address] [place] [id number] [place] [address] Jul, Insomnia, unspecified G47.00 and Chronic pain syndrome G89.4 [facility] [address] [place] [id number] [place] [address] Jul, Allergic rhinitis J30.9 [facility] [address] [place] [id number] [place] [address] Jul, Constipation, unspecified K59.00 [facility] [address] [place] [id number] [place] [address] Jul, [facility] [address] [place] [id number] [place] [address] Jun, [facility] [address] [place] [address] Jun, [facility] [address] [place] [id number] [place] [address] Jun, [facility] [address] [place] [id number] [place] [address] Jun, [facility] [address] [place] [id number] [place] [address] Jun, [facility] [address] [place] [id number] [place] [address] Jun, [facility] [address] [place] [id number] [place] [address] May, [facility] [address] [place] [id number] [place] [address] May, [facility] [address] [place] [id number] [place] [address] May, Anxiety F41.9 ; Insomnia G47.00 ; Hyperlipidemia E78.5 ; Chronic pain G89.29 ; HTN (hypertension) I10 ; Environmental allergies V15.[address] [facility] [address] [place] [id number] [place] [address] Apr, [facility] [address] [place] [id number] [place] [address] Apr, [facility] [address] [place] [id number] [place] [address] Apr, [facility] [address] [place] [id number] [place] [address] Mar, [facility] [address] [place] [id number] [place] [address] Mar, [facility] [address] [place] [id number] [place] [address] Mar, [facility] [address] [place] [id number] [place] [address] Feb, [facility] [id number] [place] [address] Feb, [facility] [address] [place] [id number] [place] [address] Feb, [facility] [address] [place] [id number] [place] [address] 15 Jan, 2015 HTN (hypertension) I10 ; Constipation K59.00 ; Chronic pain G89.29 ; Hyperlipidemia E78.5 ; Hypercholesterolemia E78.0 ; Insomnia G47.[address] [facility] [address], [place] [address] Jan, [facility] [address] [address] Dec, [facility] [address], [place] [address] Nov, [facility] [address] [place] [id number] [place] [address] Oct, Chronic kidney disease, unspecified 585.9 ; Chronic pain syndrome 338.4 ; Hyperlipidemia 272.[address] Essential hypertension 401.9 [facility] [address] [place] [id number] [place] [address] Oct, Chronic kidney disease 585.9 [facility] [address], [place] [address] Oct, [facility] [address] [place] [address] Oct, Chronic kidney disease, unspecified 585.9 ; Hypercalcemia 275.42 ; Hyperlipidemia 272.4 ; Essential hypertension 401.9 ; Chronic pain syndrome 338.4 ; Insomnia 780.52 ; Constipation 564.00 ; Environmental allergies V15.[address] [facility] [address], [place] [address] Oct, Chronic kidney disease 585.9 [facility] [address], [place] [address] Oct, [facility] [address], [place] [address] Oct, Chronic kidney disease 585.[address] [facility] [address], [place] [address] Oct, [facility] [address] [address] Oct, [facility] [address] [facility] [id number] [place] [address] 18 Sep, 2014 [facility] [address] [id number] [address] Sep, [facility] [place] [facility] [address] [facility] [id number] [place] [address] 15 Sep, 2014 Chronic kidney disease 585.9 and Hyperlipidemia 272.4 [facility] [place] [facility] [address] [id number] [place] [address] Sep, [facility] [address] [id number] [place] [address] August, [facility] [address] [id number] [place] [address] August, [facility] [address] [facility] [id number] [place] [address] Jul, [facility] [address] [facility] [id number] [address] Jul, [facility] [address] [id number] [place] [address] Jun, [facility] [address] [facility] [id number] [address] Jun, [facility] [place] [facility] [address] [id number], [place] [address] Jun, [facility] [place] [facility] [address] [id number], [place] [address] Jun, [facility] [place] [facility] [address] [id number] [place] [address] Jun, [facility] [place] [facility] [address] [id number], [place] [address] Jun, [facility] [place] [facility] [address] [facility] [id number] [place] [address] Jun, [facility] [place] [facility] [address] [id number] [place] [address] Jun, [facility] [place] [facility] [address] [id number] [place] [address] May, [facility] [place] [facility] [address] [id number] [place] [address] May, [facility] [place] [facility] [address] [id number] [place] [address] May, [facility] [place] [facility] [address] [id number] [place] [address] May, [facility] [place] [facility] [address] [id number] [place] [address] Apr, [facility] [place] [facility] [address] [id number] [place] [address] Apr, [facility] [place] [facility] [address] [id number] [place] [address] Apr, [facility] [place] [facility] [address] [id number] [place] [address] Apr, [facility] [place] [facility] [address] [id number] [place] [address] Apr, [facility] [place] [facility] [address] [id number] [place] [address] Apr, [facility] [place] [facility] [address] [id number] [place] [address] Apr, [facility] [place] [facility] [address] [id number] [place] [address] Apr, [facility] [place] [facility] [address] [id number] [place] [address] Apr, [facility] [place] [facility] [address] [id number] [place] [address] Apr, [facility] [place] [facility] [address] [id number] [place] [address] Apr, [facility] [place] [facility] [address] [id number] [place] [address] Mar, [facility] [place] [facility] [address] [id number] [place] [address] Mar, [facility] [place] [facility] [address] [id number] [place] [address] Feb, [facility] [place] [facility] [address] [id number] [place] [address] Feb, [facility] [place] [facility] [address] [id number] [place] [address] Feb, [facility] [place] [facility] [address] [id number] [place] [address] Feb, [facility] [place] [facility] [address] [id number] [place] [address] Feb, [facility] [place] [facility] [address] [id number] [place] [address] Feb, [facility] [place] [facility] [address] [id number] [place] [address] Feb, [facility] [place] [facility] [address] [id number] [place] [address] Feb, [facility] [place] [facility] [address] [id number] [place] [address] Feb, [facility] [place] [facility] [address] [id number] [address] Feb, [facility] [place] [facility] [address] [id number] [place] [address] Jan, [facility] [place] [facility] [address] [id number] [place] [address] Jan, [facility] [place] [facility] [address] [id number], [place] [address] Jan, [facility] [facility] [address] [id number], [place] [address] Jan, [facility] [place] [facility] [address] [id number] [place] [address] Jan, [facility] [place] [facility] [address] [id number] [place] [address] Jan, [facility] [place] [facility] [address] [id number] [place] [address] Jan, [facility] [place] [facility] [address] [id number] [place] [address] Jan, [facility] [place] [facility] [address] [id number] [place] [address] 16 Jan, 2014 [facility] [place] [facility] [address] [id number] [place] [address] Jan, [facility] [place] [facility] [address] [id number] [place] [address] Jan, [facility] [place] [facility] [address] [id number] [place] [address] 26 Dec, 2013 [facility] [place] [facility] [address] [id number] [place] [address] 26 Dec, 2013 [facility] [place] [facility] [address] [id number] [place] [address] 19 Dec, 2013 [facility] [place] [facility] [address] [id number], [place] [address] 19 Dec, 2013 [facility] [place] [facility] [address] [id number], [place] [address] 18 Dec, 2013 [facility] [place] [facility] [address] [id number] [place] [address] 18 Dec, 2013 [facility] [place] [facility] [address] [id number] [place] [address] 03 Sep, 2013 [facility] [place] [facility] [address] [id number] [place] [address] 03 Sep, 2013 [facility] [place] [facility] [address] [id number] [place] [address] Nov, [facility] [place] [facility] [address] [id number] [place] [address] Nov, [facility] [place] [facility] [address] [id number] [place] [address] Nov, [facility] [place] [facility] [address] [id number] [place] [address] Nov, [facility] [place] [facility] [address] [id number] [place] [address] Nov, [facility] [place] [facility] [address] [id number] [place] [address] Nov, [facility] [place] [facility] [address] [id number] [place] [address] Nov, [facility] [place] [facility] [address] [id number] [place] [address] Nov, [facility] [place] [facility] [address] [id number] [place] [address] Oct, [facility] [place] [facility] [address] [id number] [place] [address] Oct, [facility] [address] [id number] [place] [address] Oct, [facility] [place] [facility] [address] [id number] [place] [address] Oct, [facility] [place] [facility] [address] [id number] [place] [address] Sep, [facility] [place] [facility] [address] [id number] [place] [address] Sep, [facility] [place] [facility] [address] [id number] [place] [address] Sep, [facility] [place] [facility] [address] [id number] [place] [address] Sep, [facility] [place] [facility] [address] [id number] [place] [address] Sep, [facility] [place] [facility] [address] [id number] [place] [address] Sep, [facility] [place] [facility] [address] [id number] [place] [address] Sep, [facility] [place] [facility] [address] [id number] [place] [address] Sep, [facility] [place] [facility] [address] [id number] [place] [address] August, [facility] [place] [facility] [address] [id number] [place] [address] August, [facility] [place] [facility] [address] [id number] [place] [address] August, [facility] [place] [facility] [address] [id number] [place] [address] August, [facility] [place] [facility] [address] [id number] [place] [address] August, [facility] [place] [facility] [address] [id number] [place] [address] August, [facility] [place] [facility] [address] [id number] [place] [address] August, [facility] [place] [facility] [address] [id number] [place] [address] August, [facility] [place] [facility] [address] [id number] [place] [address] August, [facility] [place] [facility] [address] [id number] [place] [address] August, [facility] [place] [facility] [address] [id number] [place] [address] Jul, [facility] [place] [facility] [address] [id number] [place] [address] Jul, [facility] [place] [facility] [address] [id number] [place] [address] Jul, [facility] [place] [facility] [address] [id number] [place] [address] Jul, [facility] [place] [facility] [address] [id number] [place] [address] Jul, [facility] [place] [facility] [address] [id number] [place] [address] Jul, [facility] [place] [facility] [address] [id number] [place] [address] Jul, [facility] [place] [address] [id number] [place] [address] Jul, [facility] [place] [facility] [address] [id number] [place] [address] Jun, [facility] [place] [facility] [address] [id number] [place] [address] Jun, [facility] [place] [facility] [address] [id number] [place] [address] Jun, [facility] [place] [facility] [address] [facility] [id number] [place] [address] Jun, [facility] [place] [address] [id number] [place] [address] Jun, [facility] [address] [id number] [place] [address] Jun, [facility] [address] [id number] [place] [address] May, [facility] [address] [id number] [place] [address] May, [facility] [address] [id number] [place] [address] May, [facility] [address] [id number] [place] [address] May, [facility] [address] [id number] [place] [address] May, [facility] [address] [id number] [place] [address] May, [facility] [address] [id number] [place] [address] May, [facility] [address] [id number] [place] [address] Apr, [facility] [address] [id number] [place] [address] Apr, [facility] [address] [id number] [place] [address] Apr, [facility] [address] [id number] [place] [address] Apr, [facility] [address] [id number] [place] [address] Apr, [facility] [address] [id number] [place] [address] Apr, [facility] [address] [id number] [place] [address] Mar, [facility] [address] [id number] [place] [address] Mar, [facility] [facility] [address] [id number] [place] [address] Mar, [facility] [address] [id number] [place] [address] Mar, [facility] [address] [id number] [place] [address] Mar, [facility] [address] [id number], [place] [address] 19 Mar, 2013 [facility] [address] [id number] [place] [address] 16 Mar, 2013 [facility] [address] [id number] [place] [address] 16 Mar, 2013 [facility] [address] [id number] [place] [address] 12 Mar, 2013 [facility] [address] [id number] [place] [address] Mar, [facility] [address] [id number] [place] [address] Feb, [facility] [address] [id number] [place] [address] Feb, [facility] [address] [id number], [place] [address] Feb, [facility] [address] [id number], [place] [address] Feb, [facility] [address] [id number] [place] [address] 14 Feb, 2013 [facility] [address] [facility] [id number], [place] [address] 14 Feb, 2013 [facility] [address] [id number], [place] [address] Feb, [facility] [address] [id number], [place] [address] Feb, [facility] [address] [id number], [place] [address] 08 Feb, 2013 [facility] [address] [id number], [place] [address] 08 Feb, 2013 [facility] [address] [id number], [place] [address] Jan, [facility] [address] [id number] [place] [address] Jan, [facility] [address] [id number] [place] [address] Jan, [facility] [address] [id number] [place] [address] Jan, [facility] [address] [id number] [place] [address] Jan, [facility] [address] [id number] [place] [address] Jan, [facility] [address] [id number] [place] [address] Jan, [facility] [address] [id number] [place] [address] Jan, [facility] [address] [id number] [place] [address] Jan, [facility] [address] [id number] [place] [address] Dec, [facility] [address] [id number] [place] [address] Dec, [facility] [address] [id number] [place] [address] Dec, [facility] [address] [id number] [place] [address] Dec, [facility] [address] [id number] [place] [address] Nov, [facility] [address] [id number] [place] [address] Nov, [facility] [facility] [address] [id number] [place] [address] Nov, [facility] [address] [id number] [place] [address] Nov, [facility] [address] [id number] [place] [address] Nov, [facility] [address] [id number] [place] [address] Nov, [facility] [facility] [address] [id number] [place] [address] Oct, [facility] [place] [facility] [address] [id number] [place] [address] Oct, [facility] [place] [facility] [address] [id number] [place] [address] Oct, [facility] [place] [facility] [address] [id number] [place] [address] Oct, [facility] [facility] [address] [id number] [place] [address] Sep, [facility] [place] [facility] [address] [id number] [place] [address] Sep, [facility] [place] [facility] [address] [id number] [place] [address] Sep, [facility] [place] [facility] [address] [id number] [place] [address] Sep, [facility] [place] [facility] [address] [id number], [place] [address] Sep, [facility] [facility] [address] [id number], [place] [address] August, [facility] [place] [facility] [address] [id number] [place] [address] August, [facility] [place] [facility] [address] [id number] [place] [address] Jul, [facility] [place] [facility] [address] [id number] [place] [address] Jul, [facility] [place] [facility] [address] [id number] [place] [address] 15 Jul, 2012 [facility] [address] [id number] [place] [address] 09 Jul, 2012 [facility] [place] [facility] [address] [id number] [place] [address] 08 Jul, 2012 [facility] [address] [id number] [place] [address] 26 Jun, 2012 [facility] [place] [facility] [address] [id number] [place] [address] Jun, [facility] [address] [id number] [place] [address] 15 Jun, 2012 [facility] [address] [facility] [id number] [place] [address] Jun, [facility] [address] [facility] [id number] [place] [address] Jun, [facility] [address] [facility] [id number] [place] [address] 28 May, 2012 [facility] [address] [id number] [place] [address] 27 May, 2012 [facility] [address] [facility] [id number] [place] [address] 25 May, 2012 [facility] [facility] [address] [facility] [id number] [place] [address] 21 May, 2012 [facility] [address] [facility] [id number] [place] [address] 20 May, 2012 [facility] [place] [facility] [address] [id number] [place] [address] 14 May, 2012 [facility] [facility] [address] [facility] [id number] [place] [address] 13 May, 2012 [facility] [place] [facility] [address] [facility] [id number] [place] [address] May, [facility] [address] [id number] [place] [address] May, [facility] [address] [id number] [place] [address] Apr, [facility] [place] [facility] [address] [facility] [id number] [place] [address] Apr, [facility] [place] [facility] [address] [id number] [place] [address] Apr, [facility] [address] [id number] [place] [address] Apr, [facility] [address] [id number] [place] [address] Apr, [facility] [address] [id number] [place] [address] Mar, [facility] [place] [facility] [address] [id number] [place] [address] Mar, [facility] [address] [id number] [place] [address] Mar, [facility] [place] [facility] [address] [id number] [place] [address] Mar, [facility] [place] [facility] [address] [id number] [place] [address] Mar, [facility] [place] [facility] [address] [id number], [place] [address] Mar, [facility] [place] [facility] [address] [id number] [place] [address] Mar, [facility] [place] [facility] [address] [id number] [place] [address] Mar, [facility] [place] [facility] [address] [facility] [id number] [place] [address] Mar, [facility] [place] [facility] [address] [id number] [place] [address] Mar, [facility] [address] [id number] [place] [address] 30 Feb, 2012 [facility] [place] [facility] [address] [id number] [place] [address] Feb, [facility] [place] [facility] [address] [id number] [place] [address] Feb, [facility] [place] [facility] [address] [id number] [place] [address] Feb, [facility] [place] [facility] [address] [id number] [place] [address] Feb, [facility] [place] [facility] [address] [id number] [place] [address] Feb, [facility] [place] [facility] [address] [id number] [place] [address] Feb, [facility] [place] [facility] [address] [id number] [place] [address] Feb, [facility] [place] [facility] [address] [id number] [place] [address] Feb, [facility] [place] [facility] [address] [id number] [place] [address] 16 Feb, 2012 [facility] [place] [facility] [address] [id number] [place] [address] Feb, [facility] [place] [facility] [address] [id number] [place] [address] Feb, [facility] [place] [facility] [address] [id number] [place] [address] Feb, [facility] [place] [facility] [address] [id number] [place] [address] Feb, [facility] [place] [facility] [address] [id number] [place] [address] Feb, [facility] [place] [facility] [address] [id number] [place] [address] 08 Feb, 2012 [facility] [place] [facility] [address] [id number] [place] [address] Feb, [facility] [place] [facility] [address] [id number] [place] [address] Feb, [facility] [place] [facility] [address] [id number] [place] [address] Jan, [facility] [place] [facility] [address] [id number] [place] [address] Jan, [facility] [place] [facility] [address] [id number] [place] [address] Jan, [facility] [place] [facility] [address] [id number] [place] [address] Jan, [facility] [place] [facility] [address] [id number], [place] [address] Jan, [facility] [place] [facility] [address] [id number] [place] [address] Jan, [facility] [place] [facility] [address] [id number], [place] [address] Jan, [facility] [place] [facility] [address] [facility] [id number], [place] [address] Jan, [facility] [place] [facility] [address] [id number], [place] [address] Jan, [facility] [place] [facility] [address] [id number], [place] [address] Jan, [facility] [place] [facility] [address] [id number], [place] [address] 24 Dec, 2011 [facility] [place] [facility] [address] [id number], [place] [address] 18 Dec, 2011 [facility] [place] [facility] [address] [id number], [place] [address] Dec, [facility] [place] [facility] [address] [id number] [place] [address] Dec, [facility] [place] [facility] [address] [id number] [place] [address] Nov, [facility] [place] [facility] [address] [id number] [place] [address] Nov, [facility] [place] [facility] [address] [id number] [place] [address] Nov, [facility] [place] [facility] [address] [id number] [place] [address] Nov, [facility] [place] [facility] [address] [id number] [place] [address] Nov, [facility] [place] [facility] [address] [id number] [place] [address] Nov, [facility] [place] [facility] [address] [id number] [place] [address] Oct, [facility] [place] [facility] [address] [id number] [place] [address] Oct, [facility] [place] [facility] [address] [id number] [place] [address] Oct, [facility] [place] [facility] [address] [id number] [place] [address] Oct, [facility] [place] [facility] [address] [id number] [place] [address] Oct, [facility] [place] [facility] [address] [id number] [place] [address] Sep, [facility] [place] [facility] [address] [id number] [place] [address] Sep, [facility] [place] [facility] [address] [id number] [place] [address] Sep, [facility] [place] [facility] [address] [id number] [place] [address] 07 Sep, 2011 [facility] [address] [id number] [place] [address] Sep, [facility] [place] [facility] [address] [id number] [place] [address] August, [facility] [address] [id number] [place] [address] August, [facility] [address] [id number] [place] [address] August, [facility] [address] [id number] [place] [address] August, [facility] [address] [id number] [place] [address] Jul, [facility] [address] [id number] [place] [address] Jul, [facility] [address] [id number] [place] [address] Jul, [facility] [address] [id number] [place] [address] Jul, [facility] [address] [id number] [place] [address] Jul, [facility] [place] [facility] [address] [id number] [place] [address] 12 Jul, 2011 [facility] [place] [facility] [address] [id number] [place] [address] 11 Jul, 2011 [facility] [place] [facility] [address] [id number] [place] [address] 10 Jul, 2011 [facility] [place] [facility] [address] [id number] [place] [address] 09 Jul, 2011 [facility] [place] [facility] [address] [id number] [place] [address] Jul, [facility] [address] [id number] [place] [address] 05 Jul, 2011 [facility] [place] [facility] [address] [id number] [place] [address] Jul, [facility] [place] [facility] [address] [id number] [place] [address] Jul, [facility] [place] [facility] [address] [id number] [place] [address] Jul, [facility] [place] [facility] [address] [id number] [place] [address] Jun, [facility] [place] [facility] [address] [id number] [place] [address] Jun, [facility] [place] [facility] [address] [id number] [place] [address] Jun, [facility] [place] [facility] [address] [id number] [place] [address] Jun, [facility] [place] [facility] [address] [id number] [place] [address] May, [facility] [place] [facility] [address] [id number] [place] [address] May, [facility] [place] [facility] [address] [id number] [place] [address] May, [facility] [place] [facility] [address] [id number] [place] [address] Apr, [facility] [place] [facility] [address] [id number] [place] [address] Apr, [facility] [place] [facility] [address] [id number] [place] [address] 13 Apr, 2011 [facility] [place] [facility] [address] [id number] [place] [address] Apr, [facility] [place] [facility] [address] [id number] [place] [address] 09 Apr, 2011 [facility] [address] [id number] [place] [address] Mar, [facility] [place] [facility] [address] [id number] [place] [address] Mar, [facility] [place] [facility] [address] [id number] [place] [address] Mar, [facility] [place] [facility] [address] [id number] [place] [address] Mar, [facility] [place] [facility] [address] [id number] [place] [address] Mar, [facility] [place] [facility] [address] [id number] [place] [address] Mar, [facility] [place] [facility] [address] [id number] [place] [address] Mar, [facility] [place] [facility] [address] [id number] [place] [address] Feb, [facility] [place] [facility] [address] [id number] [place] [address] 25 Feb, 2011 [facility] [place] [facility] [address] [id number] [place] [address] Feb, [facility] [place] [facility] [address] [id number] [place] [address] Feb, [facility] [place] [facility] [address] [id number] [place] [address] 16 Feb, 2011 [facility] [place] [facility] [address] [id number] [place] [address] 14 Feb, 2011 [facility] [place] [facility] [address] [id number] [place] [address] 10 Feb, 2011 [facility] [place] [facility] [address] [id number] [place] [address] 31 Jan, 2011 [facility] [place] [facility] [address] [id number] [place] [address] 31 Jan, 2011 [facility] [address] [id number] [place] [address] 31 Jan, 2011 [facility] [place] [facility] [address] [id number] [place] [address] 18 Jan, 2011 [facility] [place] [facility] [address] [id number] [place] [address] 17 Jan, 2011 [facility] [address] [id number] [place] [address] 17 Jan, 2011 [facility] [address] [id number] [place] [address] 17 Jun, 2010 [facility] [address] [id number] [place] [address] 30 Mar, 2010 [facility] [address] [id number] [place] [address] 20 Mar, 2010 [facility] [address] [id number] [place] [address] 14 Mar, 2010 [facility] [place] [facility] [address] [id number] [place] [address] 14 Mar, 2010 [facility] [place] [facility] [address] [id number] [place] [address] 13 Mar, 2010 [facility] [place] [facility] [address] [id number] [place] [address] 07 Mar, 2010 [facility] [place] [facility] [address] [id number] [place] [address] 02 Mar, 2010 [facility] [place] [facility] [address] [id number] [place] [address] Mar, [facility] [place] [facility] [address] [id number] [place] [address] 30 Feb, 2010 [facility] [place] [facility] [address] [id number], [place] [address] 29 Feb, 2010 [facility] [place] [facility] [address] [id number] [place] [address] 17 Feb, 2010 [facility] [place] [facility] [address] [id number] [place] [address] 17 Feb, 2010 [facility] [place] [facility] [address] [id number] [place] [address] 16 Feb, 2010 [facility] [place] [facility] [address] [id number] [place] [address] 08 Feb, 2010 [facility] [place] [facility] [address] [id number] [place] [address] 04 Feb, 2010 [facility] [place] [facility] [address] [id number] [place] [address] Feb, [facility] [place] [facility] [address] [id number] [place] [address] Jan, [facility] [place] [facility] [address] [id number] [place] [address] Jan, [facility] [place] [facility] [address] [id number] [place] [address] 25 Jan, 2010 [facility] [place] [facility] [address] [id number] [place] [address] Jan, [facility] [place] [facility] [address] [id number], [place] [address] 29 Mar, 2009 [facility] [place] [facility] [address] [id number], [place] [address] 22 Mar, 2009 [facility] [place] [facility] [address] [id number] [place] [address] 19 Mar, 2009 [facility] [place] [facility] [address] [id number] [place] [address] 19 Mar, 2009 [facility] [place] [facility] [address] [id number] [place] [address] 14 Mar, 2009 [facility] [place] [facility] [address] [facility] [id number] [place] [address] Mar, [facility] [address] [id number] [address] Feb, [facility] [address] [id number] [address] Feb, [facility] [address] [id number] [address] Jan, [facility] [address] [id number], [place] [address] Sep, [facility] [address] [id number], [place] [address] May, IMMUNIZATIONS No Known Immunizations SOCIAL HISTORY Never Assessed REASON FOR VISIT EMR-[facility] PLAN OF CARE VITAL SIGNS MEDICATIONS Unknown [...] Surgical History Left ear surgery Hospitalization History [facility] in [place]- Spontaneous Pneumothorax Hospitalization History [facility]- Colon resection Hospitalization History via [facility], [place] - diarrhea/ couldnt urinate nov 2017
--- OUTSIDE RECORDS SUMMARY | 2018-10-15 01:08 | XMS REPORT ---
Author Author Migration, Doctor Organization [facility] Address Unknown Phone Unavailable Care Team Providers Care Billing Customer Service Representative Name Role Phone Migration, Doctor Unavailable Unavailable PROBLEMS Type Condition ICD9-CM Code [id number] Code Onset Dates Condition Status SNOMED Code Problem Constipation K59.00 Active 61449549 Problem Chronic pain G89.29 Active 92680595 Problem Hyperlipidemia E78.5 Active 73507677 Problem Insomnia G47.00 Active 601472349 Problem Chronic kidney disease, stage III (moderate) N18.3 Active 180249457 Problem Anxiety F41.9 Active 36262502 Problem Vision loss H54.7 Active 540008447 Problem HTN (hypertension) I10 Active 45858924 Problem Thoracic back pain, unspecified back pain laterality, unspecified chronicity M54.6 Active 355647691 Problem Vitamin D deficiency E55.9 Active 58103754 Problem Environmental allergies Z91.09 Active 269580439 Problem Primary insomnia F51.01 Active 7426768 ALLERGIES No Information ENCOUNTERS Encounter Location Date Diagnosis [place] [address] [address] Jul, [place] [address] [address] Jul, Thoracic back pain, unspecified back pain laterality, unspecified chronicity M54.6 [place] [address] [place] [id number] [place] [address] Jun, Anxiety F41.9 and Thoracic back pain, unspecified back pain laterality, unspecified chronicity M54.6 [place] [address] [address] Jun, Anxiety F41.9 and Thoracic back pain, unspecified back pain laterality, unspecified chronicity M54.6 [place] [address] [address] Jun, Thoracic back pain, unspecified back pain laterality, unspecified chronicity M54.6 [place] [address] [place] [id number] [place] [address] Jun, Anxiety F41.9 and Thoracic back pain, unspecified back pain laterality, unspecified chronicity M54.6 [place] [address] [address] May, [place] [address] [address] May, [place] [address] [address] May, [place] [address] [address] May, Anxiety F41.9 and Encounter for medication monitoring Z51.81 [place] [address] [address] May, Anxiety F41.9 and Thoracic back pain, unspecified back pain laterality, unspecified chronicity M54.6 [place] [address] [address] Apr, Hyperlipidemia 272.4 [place] [address] [place] [id number] [place] [address] Apr, Chronic pain G89.29 ; Anxiety F41.9 ; Cervical radiculopathy M54.12 and Vision loss H54.7 [place] [address] [place] [id number] [place] [address] Apr, [place] [address] [address] Apr, Anxiety F41.9 and Thoracic back pain, unspecified back pain laterality, unspecified chronicity M54.6 [place] [address] [place] [id number] [place] [address] Mar, [facility] [id number] [place] [address] 10 Mar, 2018 Anxiety F41.9 and Thoracic back pain, unspecified back pain laterality, unspecified chronicity M54.6 [place] [address] [place] [id number] [place] [address] 14 Feb, 2018 Anxiety F41.9 and Thoracic back pain, unspecified back pain laterality, unspecified chronicity M54.6 [place] [address] [place] [id number] [place] [address] 07 Feb, 2018 Thoracic back pain, unspecified back pain laterality, unspecified chronicity M54.6 [place] [address] [place] [id number] [place] [address] 29 Jan, 2018 [place] [address] [place] [id number] [place] [address] 16 Jan, 2018 Anxiety F41.9 and Thoracic back pain, unspecified back pain laterality, unspecified chronicity M54.6 [place] [address] [place] [id number] [place] [address] 19 Dec, 2017 Diarrhea of presumed infectious origin R19.7 [place] [address] [place] [id number] [place] [address] 19 Dec, 2017 Diarrhea of presumed infectious origin R19.7 [place] [address] [place] [id number] [place] [address] 18 Dec, 2017 Thoracic back pain, unspecified back pain laterality, unspecified chronicity M54.6 [place] [address] [place] [id number] [place] [address] 17 Dec, 2017 [place] [address] [place] [id number] [place] [address] 17 Dec, 2017 Anxiety F41.9 and Thoracic back pain, unspecified back pain laterality, unspecified chronicity M54.6 [place] [address] [place] [id number] [place] [address] Dec, Diarrhea of presumed infectious origin R19.7 [place] [address] [address] Dec, [place] [id number] [place] [address] Dec, Anxiety F41.9 and Thoracic back pain, unspecified back pain laterality, unspecified chronicity M54.6 [place] [id number] [place] [address] Dec, Anxiety F41.9 and Thoracic back pain, unspecified back pain laterality, unspecified chronicity M54.6 [facility] [address] [place] [id number] Dec, Diarrhea of presumed infectious origin R19.7 ; Anxiety F41.9 ; Thoracic back pain, unspecified back pain laterality, unspecified chronicity M54.6 and HTN (hypertension) I10 [place] [id number] [place] [address] Dec, Anxiety F41.9 [facility] [address] [place] [id number] Dec, Anxiety F41.9 ; Diarrhea of presumed infectious origin R19.7 ; Generalized abdominal pain R10.84 and Localized edema R60.[address] [place] [address] Nov, [facility] [address] [place] [id number] Nov, Anxiety F41.9 ; Urinary retention R33.9 ; Diarrhea of presumed infectious origin R19.7 ; Weakness R53.1 ; Acute kidney failure, unspecified N17.9 ; Chronic kidney disease, stage III (moderate) N18.3 and Thoracic back pain, unspecified back pain laterality, unspecified chronicity M54.6 [address] [address] Oct, Thoracic back pain, unspecified back pain laterality, unspecified chronicity M54.6 and Anxiety F41.9 [place] [address] [address] Sep, Thoracic back pain, unspecified back pain laterality, unspecified chronicity M54.[address] [facility] [address] [place] [id number] [place] [address] 04 Sep, 2017 Thoracic back pain, unspecified back pain laterality, unspecified chronicity M54.6 ; Anxiety F41.9 and Encounter for medication monitoring Z51.81 [place] [address] [place] [id number] [place] [address] August, [place] [address] [address] August, Thoracic back pain, unspecified back pain laterality, unspecified chronicity M54.6 and Anxiety F41.9 [place] [address] [place] [id number] [place] [address] August, Hyperlipidemia E78.5 and HTN (hypertension) I10 [place] [address] [place] [id number] [place] [address] August, [place] [address] [place] [id number] [place] [address] August, Medicare welcome exam Z00.00 ; Chronic kidney failure N18.9 ; Anxiety F41.9 ; Chronic pain G89.29 ; Insomnia G47.00 ; Hyperlipidemia E78.5 ; HTN (hypertension) I10 and Thoracic back pain, unspecified back pain laterality, unspecified chronicity M54.6 [place] [address] [place] [address] Jul, [place] [address] [place] [id number] [place] [address] Jul, [place] [address] [place] [address] Jul, [place] [address] [place] [id number] [place] [address] Jul, Anxiety F41.9 [place] [address] [place] [id number] [place] [address] Jul, Thoracic back pain, unspecified back pain laterality, unspecified chronicity M54.6 and Anxiety F41.9 [place] [address] [place] [id number] [place] [address] Jun, Thoracic back pain, unspecified back pain laterality, unspecified chronicity M54.6 and Anxiety F41.9 [place] [address] [place] [id number] [place] [address] May, Thoracic back pain, unspecified back pain laterality, unspecified chronicity M54.6 and Anxiety F41.9 [place] [address] [place] [id number] [place] [address] Apr, Thoracic back pain, unspecified back pain laterality, unspecified chronicity M54.6 and Anxiety F41.9 [place] [address] [place] [id number] [place] [address] Mar, [place] [address] [address] Mar, Thoracic back pain, unspecified back pain laterality, unspecified chronicity M54.6 and Anxiety F41.9 [place] [address] [place] [id number] [place] [address] Mar, Thoracic back pain, unspecified back pain laterality, unspecified chronicity M54.6 ; HTN (hypertension) I10 ; Hyperlipidemia E78.5 and Anxiety F41.9 [place] [address] [place] [id number] [place] [address] Feb, Thoracic back pain, unspecified back pain laterality, unspecified chronicity M54.6 and Anxiety F41.9 [place] [address] [place] [id number] [place] [address] Nov, [place] [address] [address] Oct, [facility] [address] [place] [id number] [place] [address] Oct, Thoracic back pain, unspecified back pain laterality, unspecified chronicity M54.6 [facility] [address] [place] [id number] [place] [address] Oct, HTN (hypertension) I10 ; Constipation K59.00 ; Hyperlipidemia E78.5 ; Thoracic back pain, unspecified back pain laterality, unspecified chronicity M54.6 ; Chronic pain G89.29 ; Anxiety F41.9 ; Chronic kidney failure N18.9 ; Environmental allergies Z91.09 ; Vitamin D deficiency E55.9 and Primary insomnia F51.01 [facility] [address] [place] [id number] [place] [address] Sep, Anxiety F41.9 [facility] [address] [place] [id number] [place] [address] Sep, [facility] [address] [place] [id number] [place] [address] August, Anxiety F41.9 [facility] [address] [place] [id number] [place] [address] August, [facility] [address] [place] [id number] [place] [address] Jul, Anxiety F41.9 [facility] [address] [place] [id number] [place] [address] Jul, [facility] [address] [place] [id number] [place] [address] Jun, Anxiety F41.9 [facility] [address] [place] [id number] [place] [address] Jun, [facility] [address] [place] [id number] [place] [address] May, [facility] [address] [place] [address] May, [facility] [id number] [place] [address] May, [facility] [id number] [place] [address] Apr, [facility] [id number] [place] [address] Apr, [facility] [address] [place] [id number] [place] [address] Apr, Anxiety F41.9 [facility] [address] [place] [id number] [place] [address] Apr, Anxiety F41.9 [facility] [address] [place] [id number] [place] [address] Apr, [facility] [address] [place] [id number] [place] [address] Mar, HTN (hypertension) I10 ; Tremor R25.1 ; Hypercholesterolemia E78.0 ; Constipation K59.00 ; Chronic pain G89.29 ; Hyperlipidemia E78.5 ; Insomnia G47.00 ; Anxiety F41.9 and Thoracic back pain, unspecified back pain laterality, unspecified chronicity M54.6 [facility] [address], [place] [address] Mar, Tremor R25.1 ; HTN (hypertension) I10 ; Hypercholesterolemia E78.0 ; Constipation K59.00 ; Chronic pain G89.29 ; Hyperlipidemia E78.5 ; Insomnia G47.00 ; Anxiety F41.9 and Thoracic back pain, unspecified back pain laterality, unspecified chronicity M54.6 [facility] [id number] [place] [address] Mar, [facility] [id number] [place] [address] Mar, [facility] [address] [place] [id number] [address] Feb, [facility] [address] [address] Jan, [facility] [address], [place] [address] Jan, [facility] [id number] [place] [address] Dec, [facility] [id number] [place] [address] Nov, [facility] [id number] [place] [address] Nov, [facility] [id number] [place] [address] Oct, Anxiety F41.9 [facility] [address] [place] [id number] [place] [address] Oct, Chronic pain G89.29 [facility] [address], [place] [address] Sep, [facility] [id number] [place] [address] Sep, [facility] [address], [place] [address] Sep, [facility] [address], [place] [address] Sep, [facility] [address], [place] [address] 16 Sep, 2015 Chronic pain syndrome G89.4 [facility] [address], [place] [address] Sep, HTN (hypertension) I10 ; Chronic pain G89.29 ; Hypercholesterolemia E78.0 ; Chronic kidney failure N18.9 ; Constipation, unspecified constipation type K59.00 ; Anxiety F41.9 and Thoracic back pain, unspecified back pain laterality, unspecified chronicity M54.6 [facility] [address] [place] [id number] [place] [address] August, Chronic pain syndrome G89.4 [facility] [address] [place] [id number] [place] [address] August, Chronic pain syndrome G89.4 [facility] [address] [place] [id number] [place] [address] Jul, Anxiety disorder, unspecified F41.9 and Chronic pain syndrome G89.4 [facility] [address] [place] [id number] [place] [address] Jul, Insomnia, unspecified G47.00 and Chronic pain syndrome G89.4 [facility] [address] [place] [id number] [place] [address] Jul, Allergic rhinitis J30.9 [facility] [address] [place] [id number] [place] [address] Jul, Constipation, unspecified K59.00 [facility] [address] [place] [id number] [place] [address] Jul, [facility] [address] [place] [id number] [place] [address] Jun, [facility] [id number] [place] [address] Jun, [facility] [address] [place] [id number] [place] [address] Jun, [facility] [address] [place] [id number] [place] [address] Jun, [facility] [address] [place] [id number] [place] [address] Jun, [facility] [address] [place] [id number] [place] [address] Jun, [facility] [address] [place] [id number] [place] [address] May, [facility] [address] [place] [id number] [place] [address] May, [facility] [address] [place] [id number] [place] [address] May, Anxiety F41.9 ; Insomnia G47.00 ; Hyperlipidemia E78.5 ; Chronic pain G89.29 ; HTN (hypertension) I10 ; Environmental allergies V15.[address] [facility] [address] [place] [id number] [place] [address] Apr, [facility] [address] [place] [id number] [place] [address] Apr, [facility] [address] [place] [id number] [place] [address] Apr, [facility] [address] [place] [id number] [place] [address] Mar, [facility] [address] [place] [id number] [place] [address] Mar, [facility] [address] [place] [id number] [place] [address] Mar, [facility] [address] [place] [id number] [place] [address] Feb, [facility] [id number] [place] [address] Feb, [facility] [address] [place] [id number] [place] [address] Feb, [facility] [address] [place] [id number] [place] [address] 15 Jan, 2015 HTN (hypertension) I10 ; Constipation K59.00 ; Chronic pain G89.29 ; Hyperlipidemia E78.5 ; Hypercholesterolemia E78.0 ; Insomnia G47.[address] [facility] [address], [place] [address] Jan, [facility] [address], [place] [address] Dec, [facility] [address], [place] [address] Nov, [facility] [address] [place] [id number] [place] [address] Oct, Chronic kidney disease, unspecified 585.9 ; Chronic pain syndrome 338.4 ; Hyperlipidemia 272.4 and Essential hypertension 401.9 [facility] [address] [place] [id number] [place] [address] Oct, Chronic kidney disease 585.9 [facility] [address], [place] [address] Oct, [facility] [id number] [place] [address] Oct, Chronic kidney disease, unspecified 585.9 ; Hypercalcemia 275.42 ; Hyperlipidemia 272.4 ; Essential hypertension 401.9 ; Chronic pain syndrome 338.4 ; Insomnia 780.52 ; Constipation 564.00 ; Environmental allergies V15.[address] [facility] [address], [place] [address] Oct, Chronic kidney disease 585.9 [facility] [address], [place] [address] Oct, [facility] [address], [place] [address] Oct, Chronic kidney disease 585.[address] [facility] [address], [place] [address] Oct, [facility] [address] [address] Oct, [facility] [address] [facility] [id number] [place] [address] 18 Sep, 2014 [facility] [address] [id number] [address] Sep, [facility] [place] [facility] [address] [facility] [id number] [place] [address] 15 Sep, 2014 Chronic kidney disease 585.9 and Hyperlipidemia 272.4 [facility] [place] [facility] [address] [id number] [place] [address] Sep, [facility] [address] [id number] [place] [address] August, [facility] [address] [id number] [place] [address] August, [facility] [address] [facility] [id number] [place] [address] Jul, [facility] [address] [facility] [id number], [place] [address] Jul, [facility] [address] [id number] [place] [address] Jun, [facility] [address] [facility] [id number], [place] [address] Jun, [facility] [place] [facility] [address] [id number], [place] [address] Jun, [facility] [place] [facility] [address] [id number], [place] [address] Jun, [facility] [place] [facility] [address] [id number] [place] [address] Jun, [facility] [place] [facility] [address] [id number], [place] [address] Jun, [facility] [place] [facility] [address] [facility] [id number] [place] [address] Jun, [facility] [place] [facility] [address] [id number] [place] [address] Jun, [facility] [place] [facility] [address] [id number] [place] [address] May, [facility] [place] [facility] [address] [id number] [place] [address] May, [facility] [place] [facility] [address] [id number] [place] [address] May, [facility] [place] [facility] [address] [id number] [place] [address] May, [facility] [place] [facility] [address] [id number] [place] [address] Apr, [facility] [place] [facility] [address] [id number] [place] [address] Apr, [facility] [place] [facility] [address] [id number] [place] [address] Apr, [facility] [place] [facility] [address] [id number] [place] [address] Apr, [facility] [place] [facility] [address] [id number] [place] [address] Apr, [facility] [place] [facility] [address] [id number] [place] [address] Apr, [facility] [place] [facility] [address] [id number] [place] [address] Apr, [facility] [place] [facility] [address] [id number] [place] [address] Apr, [facility] [place] [facility] [address] [id number] [place] [address] Apr, [facility] [place] [facility] [address] [id number] [place] [address] Apr, [facility] [place] [facility] [address] [id number] [place] [address] Apr, [facility] [place] [facility] [address] [id number] [place] [address] Mar, [facility] [place] [facility] [address] [id number] [place] [address] Mar, [facility] [place] [facility] [address] [id number] [place] [address] Feb, [facility] [place] [facility] [address] [id number] [place] [address] Feb, [facility] [place] [facility] [address] [id number] [place] [address] Feb, [facility] [place] [facility] [address] [id number] [place] [address] Feb, [facility] [place] [facility] [address] [id number] [place] [address] Feb, [facility] [place] [facility] [address] [id number] [place] [address] Feb, [facility] [place] [facility] [address] [id number] [place] [address] Feb, [facility] [place] [facility] [address] [id number] [place] [address] Feb, [facility] [place] [facility] [address] [id number] [place] [address] Feb, [facility] [place] [facility] [address] [id number], [place] [address] Feb, [facility] [place] [facility] [address] [id number] [place] [address] Jan, [facility] [place] [facility] [address] [id number] [place] [address] Jan, [facility] [place] [facility] [address] [id number], [place] [address] Jan, [facility] [place] [facility] [address] [id number], [place] [address] Jan, [facility] [place] [facility] [address] [id number] [place] [address] Jan, [facility] [place] [facility] [address] [id number] [place] [address] Jan, [facility] [place] [facility] [address] [id number] [place] [address] Jan, [facility] [place] [facility] [address] [id number] [place] [address] Jan, [facility] [place] [facility] [address] [id number] [place] [address] 16 Jan, 2014 [facility] [place] [facility] [address] [id number] [place] [address] Jan, [facility] [place] [facility] [address] [id number] [place] [address] Jan, [facility] [place] [facility] [address] [id number] [place] [address] 26 Dec, 2013 [facility] [place] [facility] [address] [id number] [place] [address] 26 Dec, 2013 [facility] [place] [facility] [address] [id number] [place] [address] 19 Dec, 2013 [facility] [place] [facility] [address] [id number], [place] [address] 19 Dec, 2013 [facility] [place] [facility] [address] [id number], [place] [address] 18 Dec, 2013 [facility] [place] [facility] [address] [id number] [place] [address] 18 Dec, 2013 [facility] [place] [facility] [address] [id number] [place] [address] 03 Sep, 2013 [facility] [place] [facility] [address] [id number] [place] [address] 03 Sep, 2013 [facility] [place] [facility] [address] [id number] [place] [address] Nov, [facility] [place] [facility] [address] [id number] [place] [address] Nov, [facility] [place] [facility] [address] [id number] [place] [address] Nov, [facility] [place] [facility] [address] [id number] [place] [address] Nov, [facility] [place] [facility] [address] [id number] [place] [address] Nov, [facility] [place] [facility] [address] [id number] [place] [address] Nov, [facility] [place] [facility] [address] [id number] [place] [address] Nov, [facility] [place] [facility] [address] [id number] [place] [address] Nov, [facility] [place] [facility] [address] [id number] [place] [address] Oct, [facility] [place] [facility] [address] [id number] [place] [address] Oct, [facility] [place] [facility] [address] [id number] [place] [address] Oct, [facility] [place] [facility] [address] [id number] [place] [address] Oct, [facility] [place] [facility] [address] [id number] [place] [address] Sep, [facility] [place] [facility] [address] [id number] [place] [address] Sep, [facility] [place] [facility] [address] [id number] [place] [address] Sep, [facility] [place] [facility] [address] [id number] [place] [address] Sep, [facility] [place] [facility] [address] [id number] [place] [address] Sep, [facility] [place] [facility] [address] [id number] [place] [address] Sep, [facility] [place] [facility] [address] [id number] [place] [address] Sep, [facility] [place] [facility] [address] [id number] [place] [address] Sep, [facility] [place] [facility] [address] [id number] [place] [address] August, [facility] [place] [facility] [address] [id number] [place] [address] August, [facility] [place] [facility] [address] [id number] [place] [address] August, [facility] [place] [facility] [address] [id number] [place] [address] August, [facility] [place] [facility] [address] [id number] [place] [address] August, [facility] [place] [facility] [address] [id number] [place] [address] August, [facility] [place] [facility] [address] [id number] [place] [address] August, [facility] [place] [facility] [address] [id number] [place] [address] August, [facility] [place] [facility] [address] [id number] [place] [address] August, [facility] [place] [facility] [address] [id number] [place] [address] August, [facility] [place] [facility] [address] [id number] [place] [address] Jul, [facility] [place] [facility] [address] [id number] [place] [address] Jul, [facility] [place] [facility] [address] [id number] [place] [address] Jul, [facility] [place] [facility] [address] [id number] [place] [address] Jul, [facility] [place] [facility] [address] [id number] [place] [address] Jul, [facility] [place] [facility] [address] [id number] [place] [address] Jul, [facility] [place] [facility] [address] [id number] [place] [address] Jul, [facility] [place] [facility] [address] [id number] [place] [address] Jul, [facility] [place] [facility] [address] [id number] [place] [address] Jun, [facility] [place] [facility] [address] [id number] [place] [address] Jun, [facility] [place] [facility] [address] [id number] [place] [address] Jun, [facility] [place] [facility] [address] [facility] [id number] [place] [address] Jun, [facility] [place] [facility] [address] [id number] [place] [address] Jun, [facility] [place] [facility] [address] [id number] [place] [address] Jun, [facility] [place] [facility] [address] [id number] [place] [address] May, [facility] [place] [facility] [address] [id number] [place] [address] May, [facility] [place] [facility] [address] [id number] [place] [address] May, [facility] [place] [facility] [address] [id number] [place] [address] May, [facility] [place] [facility] [address] [id number] [place] [address] May, [facility] [place] [facility] [address] [id number] [place] [address] May, [facility] [place] [facility] [address] [id number] [place] [address] May, [facility] [place] [facility] [address] [id number] [place] [address] Apr, [facility] [place] [facility] [address] [id number] [place] [address] Apr, [facility] [place] [facility] [address] [id number] [place] [address] Apr, [facility] [place] [facility] [address] [id number] [place] [address] Apr, [facility] [place] [facility] [address] [id number] [place] [address] Apr, [facility] [place] [facility] [address] [id number] [place] [address] Apr, [facility] [place] [facility] [address] [id number] [place] [address] Mar, [facility] [place] [facility] [address] [id number] [place] [address] Mar, [facility] [place] [facility] [address] [id number] [place] [address] Mar, [facility] [place] [facility] [address] [id number] [place] [address] Mar, [facility] [place] [facility] [address] [id number] [place] [address] Mar, [facility] [place] [facility] [address] [id number], [place] [address] 19 Mar, 2013 [facility] [address] [id number] [place] [address] 16 Mar, 2013 [facility] [place] [facility] [address] [id number] [place] [address] 16 Mar, 2013 [facility] [address] [id number] [place] [address] 12 Mar, 2013 [facility] [place] [facility] [address] [id number] [place] [address] Mar, [facility] [address] [id number] [place] [address] Feb, [facility] [place] [facility] [address] [id number] [place] [address] Feb, [facility] [address] [id number], [place] [address] Feb, [facility] [place] [facility] [address] [id number], [place] [address] Feb, [facility] [address] [id number] [place] [address] 14 Feb, 2013 [facility] [place] [facility] [address] [facility] [id number], [place] [address] 14 Feb, 2013 [facility] [address] [id number], [place] [address] Feb, [facility] [place] [facility] [address] [id number], [place] [address] Feb, [facility] [place] [facility] [address] [id number], [place] [address] 08 Feb, 2013 [facility] [place] [facility] [address] [id number], [place] [address] 08 Feb, 2013 [facility] [place] [facility] [address] [id number], [place] [address] Jan, [facility] [place] [facility] [address] [id number] [place] [address] Jan, [facility] [place] [facility] [address] [id number] [place] [address] Jan, [facility] [place] [facility] [address] [id number] [place] [address] Jan, [facility] [place] [facility] [address] [id number] [place] [address] Jan, [facility] [place] [facility] [address] [id number] [place] [address] Jan, [facility] [place] [facility] [address] [id number] [place] [address] Jan, [facility] [place] [facility] [address] [id number] [place] [address] Jan, [facility] [place] [facility] [address] [id number] [place] [address] Jan, [facility] [place] [facility] [address] [id number] [place] [address] Dec, [facility] [place] [facility] [address] [id number] [place] [address] Dec, [facility] [place] [facility] [address] [id number] [place] [address] Dec, [facility] [place] [facility] [address] [id number] [place] [address] Dec, [facility] [place] [facility] [address] [id number] [place] [address] Nov, [facility] [place] [facility] [address] [id number] [place] [address] Nov, [facility] [place] [facility] [address] [id number] [place] [address] Nov, [facility] [place] [facility] [address] [id number] [place] [address] Nov, [facility] [address] [id number] [place] [address] Nov, [facility] [place] [facility] [address] [id number] [place] [address] Nov, [facility] [place] [facility] [address] [id number] [place] [address] Oct, [facility] [place] [facility] [address] [id number] [place] [address] Oct, [facility] [place] [facility] [address] [id number] [place] [address] Oct, [facility] [place] [facility] [address] [id number] [place] [address] Oct, [facility] [place] [facility] [address] [id number] [place] [address] Sep, [facility] [place] [facility] [address] [id number] [place] [address] Sep, [facility] [place] [facility] [address] [id number] [place] [address] Sep, [facility] [place] [facility] [address] [id number] [place] [address] Sep, [facility] [place] [facility] [address] [id number], [place] [address] Sep, [facility] [place] [facility] [address] [id number], [place] [address] August, [facility] [place] [facility] [address] [id number] [place] [address] August, [facility] [place] [facility] [address] [id number] [place] [address] Jul, [facility] [place] [facility] [address] [id number] [place] [address] Jul, [facility] [place] [facility] [address] [id number] [place] [address] 15 Jul, 2012 [facility] [address] [id number] [place] [address] 09 Jul, 2012 [facility] [place] [facility] [address] [id number] [place] [address] 08 Jul, 2012 [facility] [address] [id number] [place] [address] 26 Jun, 2012 [facility] [place] [facility] [address] [id number] [place] [address] Jun, [facility] [address] [id number] [place] [address] 15 Jun, 2012 [facility] [address] [facility] [id number] [place] [address] Jun, [facility] [address] [facility] [id number] [place] [address] Jun, [facility] [address] [facility] [id number] [place] [address] 28 May, 2012 [facility] [address] [id number] [place] [address] 27 May, 2012 [facility] [address] [facility] [id number] [place] [address] 25 May, 2012 [facility] [place] [facility] [address] [facility] [id number] [place] [address] 21 May, 2012 [facility] [address] [facility] [id number] [place] [address] 20 May, 2012 [facility] [place] [facility] [address] [id number] [place] [address] 14 May, 2012 [facility] [place] [facility] [address] [facility] [id number] [place] [address] 13 May, 2012 [facility] [place] [facility] [address] [facility] [id number] [place] [address] May, [facility] [address] [id number] [place] [address] May, [facility] [address] [id number] [place] [address] Apr, [facility] [place] [facility] [address] [facility] [id number] [place] [address] Apr, [facility] [place] [facility] [address] [id number] [place] [address] Apr, [facility] [address] [id number] [place] [address] Apr, [facility] [address] [id number] [place] [address] Apr, [facility] [address] [id number] [place] [address] Mar, [facility] [place] [facility] [address] [id number] [place] [address] Mar, [facility] [address] [id number] [place] [address] Mar, [facility] [place] [facility] [address] [id number] [place] [address] Mar, [facility] [place] [facility] [address] [id number] [place] [address] Mar, [facility] [place] [facility] [address] [id number], [place] [address] Mar, [facility] [place] [facility] [address] [id number] [place] [address] Mar, [facility] [place] [facility] [address] [id number] [place] [address] Mar, [facility] [place] [facility] [address] [facility] [id number] [place] [address] Mar, [facility] [place] [facility] [address] [id number] [place] [address] Mar, [facility] [address] [id number] [place] [address] 30 Feb, 2012 [facility] [place] [facility] [address] [id number] [place] [address] Feb, [facility] [place] [facility] [address] [id number] [place] [address] Feb, [facility] [place] [facility] [address] [id number] [place] [address] Feb, [facility] [place] [facility] [address] [id number] [place] [address] Feb, [facility] [place] [facility] [address] [id number] [place] [address] Feb, [facility] [place] [facility] [address] [id number] [place] [address] Feb, [facility] [place] [facility] [address] [id number] [place] [address] Feb, [facility] [place] [facility] [address] [id number] [place] [address] Feb, [facility] [place] [facility] [address] [id number] [place] [address] 16 Feb, 2012 [facility] [place] [facility] [address] [id number] [place] [address] Feb, [facility] [place] [facility] [address] [id number] [place] [address] Feb, [facility] [place] [facility] [address] [id number] [place] [address] Feb, [facility] [place] [facility] [address] [id number] [place] [address] Feb, [facility] [place] [facility] [address] [id number] [place] [address] Feb, [facility] [place] [facility] [address] [id number] [place] [address] 08 Feb, 2012 [facility] [place] [facility] [address] [id number] [place] [address] Feb, [facility] [place] [facility] [address] [id number] [place] [address] Feb, [facility] [place] [facility] [address] [id number] [place] [address] Jan, [facility] [place] [facility] [address] [id number] [place] [address] Jan, [facility] [place] [facility] [address] [id number] [place] [address] Jan, [facility] [place] [facility] [address] [id number] [place] [address] Jan, [facility] [place] [facility] [address] [id number], [place] [address] Jan, [facility] [place] [facility] [address] [id number] [place] [address] Jan, [facility] [place] [facility] [address] [id number], [place] [address] Jan, [facility] [place] [facility] [address] [facility] [id number], [place] [address] Jan, [facility] [place] [facility] [address] [id number], [place] [address] Jan, [facility] [place] [facility] [address] [id number], [place] [address] Jan, [facility] [place] [facility] [address] [id number], [place] [address] 24 Dec, 2011 [facility] [place] [facility] [address] [id number], [place] [address] 18 Dec, 2011 [facility] [place] [facility] [address] [id number], [place] [address] Dec, [facility] [place] [facility] [address] [id number] [place] [address] Dec, [facility] [place] [facility] [address] [id number] [place] [address] Nov, [facility] [place] [facility] [address] [id number] [place] [address] Nov, [facility] [place] [facility] [address] [id number] [place] [address] Nov, [facility] [place] [facility] [address] [id number] [place] [address] Nov, [facility] [place] [facility] [address] [id number] [place] [address] Nov, [facility] [place] [facility] [address] [id number] [place] [address] Nov, [facility] [place] [facility] [address] [id number] [place] [address] Oct, [facility] [place] [facility] [address] [id number] [place] [address] Oct, [facility] [place] [facility] [address] [id number] [place] [address] Oct, [facility] [place] [facility] [address] [id number] [place] [address] Oct, [facility] [place] [facility] [address] [id number] [place] [address] Oct, [facility] [place] [facility] [address] [id number] [place] [address] Sep, [facility] [place] [facility] [address] [id number] [place] [address] Sep, [facility] [place] [facility] [address] [id number] [place] [address] Sep, [facility] [place] [facility] [address] [id number] [place] [address] 07 Sep, 2011 [facility] [address] [id number] [place] [address] Sep, [facility] [place] [facility] [address] [id number] [place] [address] August, [facility] [address] [id number] [place] [address] August, [facility] [address] [id number] [place] [address] August, [facility] [address] [id number] [place] [address] August, [facility] [address] [id number] [place] [address] Jul, [facility] [address] [id number] [place] [address] Jul, [facility] [address] [id number] [place] [address] Jul, [facility] [address] [id number] [place] [address] Jul, [facility] [address] [id number] [place] [address] Jul, [facility] [place] [facility] [address] [id number] [place] [address] 12 Jul, 2011 [facility] [place] [facility] [address] [id number] [place] [address] 11 Jul, 2011 [facility] [place] [facility] [address] [id number] [place] [address] 10 Jul, 2011 [facility] [place] [facility] [address] [id number] [place] [address] 09 Jul, 2011 [facility] [place] [facility] [address] [id number] [place] [address] Jul, [facility] [address] [id number] [place] [address] 05 Jul, 2011 [facility] [place] [facility] [address] [id number] [place] [address] Jul, [facility] [place] [facility] [address] [id number] [place] [address] Jul, [facility] [place] [facility] [address] [id number] [place] [address] Jul, [facility] [place] [facility] [address] [id number] [place] [address] Jun, [facility] [place] [facility] [address] [id number] [place] [address] Jun, [facility] [place] [facility] [address] [id number] [place] [address] Jun, [facility] [place] [facility] [address] [id number] [place] [address] Jun, [facility] [place] [facility] [address] [id number] [place] [address] May, [facility] [place] [facility] [address] [id number] [place] [address] May, [facility] [place] [facility] [address] [id number] [place] [address] May, [facility] [place] [facility] [address] [id number] [place] [address] Apr, [facility] [place] [facility] [address] [id number] [place] [address] Apr, [facility] [place] [facility] [address] [id number] [place] [address] 13 Apr, 2011 [facility] [place] [facility] [address] [id number] [place] [address] Apr, [facility] [place] [facility] [address] [id number] [place] [address] 09 Apr, 2011 [facility] [address] [id number] [place] [address] Mar, [facility] [place] [facility] [address] [id number] [place] [address] Mar, [facility] [place] [facility] [address] [id number] [place] [address] Mar, [facility] [place] [facility] [address] [id number] [place] [address] Mar, [facility] [place] [facility] [address] [id number] [place] [address] Mar, [facility] [place] [facility] [address] [id number] [place] [address] Mar, [facility] [place] [facility] [address] [id number] [place] [address] Mar, [facility] [place] [facility] [address] [id number] [place] [address] Feb, [facility] [place] [facility] [address] [id number] [place] [address] 25 Feb, 2011 [facility] [place] [facility] [address] [id number] [place] [address] Feb, [facility] [place] [facility] [address] [id number] [place] [address] Feb, [facility] [place] [facility] [address] [id number] [place] [address] 16 Feb, 2011 [facility] [place] [facility] [address] [id number] [place] [address] 14 Feb, 2011 [facility] [place] [facility] [address] [id number] [place] [address] 10 Feb, 2011 [facility] [place] [facility] [address] [id number] [place] [address] 31 Jan, 2011 [facility] [place] [facility] [address] [id number] [place] [address] 31 Jan, 2011 [facility] [address] [id number] [place] [address] 31 Jan, 2011 [facility] [place] [facility] [address] [id number] [place] [address] 18 Jan, 2011 [facility] [place] [facility] [address] [id number] [place] [address] 17 Jan, 2011 [facility] [address] [id number] [place] [address] 17 Jan, 2011 [facility] [address] [id number] [place] [address] 17 Jun, 2010 [facility] [address] [id number] [place] [address] 30 Mar, 2010 [facility] [address] [id number] [place] [address] 20 Mar, 2010 [facility] [address] [id number] [place] [address] 14 Mar, 2010 [facility] [place] [facility] [address] [id number] [place] [address] 14 Mar, 2010 [facility] [place] [facility] [address] [id number] [place] [address] 13 Mar, 2010 [facility] [place] [facility] [address] [id number] [place] [address] 07 Mar, 2010 [facility] [place] [facility] [address] [id number] [place] [address] 02 Mar, 2010 [facility] [place] [facility] [address] [id number] [place] [address] Mar, [facility] [place] [facility] [address] [id number] [place] [address] 30 Feb, 2010 [facility] [place] [facility] [address] [id number], [place] [address] 29 Feb, 2010 [facility] [place] [facility] [address] [id number] [place] [address] 17 Feb, 2010 [facility] [place] [facility] [address] [id number] [place] [address] 17 Feb, 2010 [facility] [place] [facility] [address] [id number] [place] [address] 16 Feb, 2010 [facility] [place] [facility] [address] [id number] [place] [address] 08 Feb, 2010 [facility] [place] [facility] [address] [id number] [place] [address] 04 Feb, 2010 [facility] [place] [facility] [address] [id number] [place] [address] Feb, [facility] [place] [facility] [address] [id number] [place] [address] Jan, [facility] [place] [facility] [address] [id number] [place] [address] Jan, [facility] [place] [facility] [address] [id number] [place] [address] 25 Jan, 2010 [facility] [place] [facility] [address] [id number] [place] [address] Jan, [facility] [place] [facility] [address] [id number], [place] [address] 29 Mar, 2009 [facility] [place] [facility] [address] [id number], [place] [address] 22 Mar, 2009 [facility] [place] [facility] [address] [id number] [place] [address] 19 Mar, 2009 [facility] [place] [facility] [address] [id number] [place] [address] 19 Mar, 2009 [facility] [place] [facility] [address] [id number] [place] [address] 14 Mar, 2009 [facility] [place] [facility] [address] [facility] [id number] [place] [address] Mar, [facility] [address] [id number] [address] Feb, [facility] [address] [id number] [address] Feb, [facility] [address] [id number] [address] Jan, [facility] [address] [id number], [place] [address] Sep, [facility] [address] [id number] [address] May, IMMUNIZATIONS No Known Immunizations SOCIAL HISTORY Never Assessed REASON FOR VISIT [facility] PLAN OF CARE VITAL SIGNS MEDICATIONS Unknown [...] Surgical History Left ear surgery Hospitalization History [facility] in [place]- Spontaneous Pneumothorax Hospitalization History [facility]- Colon resection Hospitalization History via [facility] - diarrhea/ couldnt urinate nov 2017
--- OUTSIDE RECORDS SUMMARY | 2018-10-15 01:09 | XMS REPORT ---
Author Author Migration, Doctor Organization [facility] Address Unknown Phone Unavailable Care Team Providers Care [employer] Operator Name Role Phone Migration, Doctor Unavailable Unavailable PROBLEMS Type Condition ICD9-CM Code [id number] Code Onset Dates Condition Status SNOMED Code Problem Constipation K59.00 Active 27374645 Problem Chronic pain G89.29 Active 83455063 Problem Hyperlipidemia E78.5 Active 85767189 Problem Insomnia G47.00 Active 356882837 Problem Chronic kidney disease, stage III (moderate) N18.3 Active 623701775 Problem Anxiety F41.9 Active 89275225 Problem Vision loss H54.7 Active 899200056 Problem HTN (hypertension) I10 Active 88210895 Problem Thoracic back pain, unspecified back pain laterality, unspecified chronicity M54.6 Active 562861670 Problem Vitamin D deficiency E55.9 Active 89204196 Problem Environmental allergies Z91.09 Active 139275652 Problem Primary insomnia F51.01 Active 0586196 ALLERGIES No Information ENCOUNTERS Encounter Location Date Diagnosis [facility] [id number] [place] [address] Jul, Thoracic back pain, unspecified back pain laterality, unspecified chronicity M54.6 [facility] [id number] [place] [address] Jun, Anxiety F41.9 and Thoracic back pain, unspecified back pain laterality, unspecified chronicity M54.6 [facility] [id number] [place] [address] Jun, Anxiety F41.9 and Thoracic back pain, unspecified back pain laterality, unspecified chronicity M54.6 [facility] [id number] [place] [address] Jun, Thoracic back pain, unspecified back pain laterality, unspecified chronicity M54.6 [facility] [id number] [place] [address] Jun, Anxiety F41.9 and Thoracic back pain, unspecified back pain laterality, unspecified chronicity M54.6 [facility] [id number] [place] [address] May, [facility] [id number] [place] [address] May, [facility] [address] [address] May, [facility] [address] [address] May, Anxiety F41.9 and Encounter for medication monitoring Z51.81 [facility] [id number] [place] [address] May, Anxiety F41.9 and Thoracic back pain, unspecified back pain laterality, unspecified chronicity M54.6 [facility] [id number] [place] [address] Apr, Hyperlipidemia 272.4 [facility] [address] [address] Apr, Chronic pain G89.29 ; Anxiety F41.9 ; Cervical radiculopathy M54.12 and Vision loss H54.7 [facility] [id number] [place] [address] Apr, [facility] [id number] [place] [address] Apr, Anxiety F41.9 and Thoracic back pain, unspecified back pain laterality, unspecified chronicity M54.6 [facility] [id number] [place] [address] Mar, [facility] [id number] [place] [address] Mar, Anxiety F41.9 and Thoracic back pain, unspecified back pain laterality, unspecified chronicity M54.6 [facility] [id number] [place] [address] 14 Feb, 2018 Anxiety F41.9 and Thoracic back pain, unspecified back pain laterality, unspecified chronicity M54.6 [facility] [id number] [place] [address] 07 Feb, 2018 Thoracic back pain, unspecified back pain laterality, unspecified chronicity M54.6 [facility] [id number] [place] [address] 29 Jan, 2018 [facility] [id number] [place] [address] 16 Jan, 2018 Anxiety F41.9 and Thoracic back pain, unspecified back pain laterality, unspecified chronicity M54.6 [facility] [id number] [place] [address] 19 Dec, 2017 Diarrhea of presumed infectious origin R19.7 [facility] [id number] [place] [address] 19 Dec, 2017 Diarrhea of presumed infectious origin R19.7 [facility] [id number] [place] [address] 18 Dec, 2017 Thoracic back pain, unspecified back pain laterality, unspecified chronicity M54.6 [facility] [id number] [place] [address] 17 Dec, 2017 [facility] [id number] [place] [address] 17 Dec, 2017 Anxiety F41.9 and Thoracic back pain, unspecified back pain laterality, unspecified chronicity M54.6 [facility] [id number] [place] [address] 13 Dec, 2017 Diarrhea of presumed infectious origin R19.7 [facility] [id number] [place] [address] 13 Dec, 2017 [facility] [address] [address] Dec, Anxiety F41.9 and Thoracic back pain, unspecified back pain laterality, unspecified chronicity M54.6 [facility] [address] [address] Dec, Anxiety F41.9 and Thoracic back pain, unspecified back pain laterality, unspecified chronicity M54.6 [facility] [address] [place] [id number] Dec, Diarrhea of presumed infectious origin R19.7 ; Anxiety F41.9 ; Thoracic back pain, unspecified back pain laterality, unspecified chronicity M54.6 and HTN (hypertension) I10 [facility] [id number] [place] [address] Dec, Anxiety F41.9 [facility] [address] [place] [id number] Dec, Anxiety F41.9 ; Diarrhea of presumed infectious origin R19.7 ; Generalized abdominal pain R10.84 and Localized edema R60.0 [facility] [id number] [place] [address] Nov, [facility] [address] [place] [id number] Nov, Anxiety F41.9 ; Urinary retention R33.9 ; Diarrhea of presumed infectious origin R19.7 ; Weakness R53.1 ; Acute kidney failure, unspecified N17.9 ; Chronic kidney disease, stage III (moderate) N18.3 and Thoracic back pain, unspecified back pain laterality, unspecified chronicity M54.6 [facility] [id number] [place] [address] Oct, Thoracic back pain, unspecified back pain laterality, unspecified chronicity M54.6 and Anxiety F41.9 [facility] [id number] [place] [address] Sep, Thoracic back pain, unspecified back pain laterality, unspecified chronicity M54.6 and Anxiety F41.9 [facility] [id number] [place] [address] Sep, Thoracic back pain, unspecified back pain laterality, unspecified chronicity M54.6 ; Anxiety F41.9 and Encounter for medication monitoring Z51.81 [facility] [id number] [place] [address] August, [facility] [address] [address] August, Thoracic back pain, unspecified back pain laterality, unspecified chronicity M54.6 and Anxiety F41.9 [facility] [id number] [place] [address] August, Hyperlipidemia E78.5 and HTN (hypertension) I10 [facility] [id number] [place] [address] August, [facility] [id number] [place] [address] August, Medicare welcome exam Z00.00 ; Chronic kidney failure N18.9 ; Anxiety F41.9 ; Chronic pain G89.29 ; Insomnia G47.00 ; Hyperlipidemia E78.5 ; HTN (hypertension) I10 and Thoracic back pain, unspecified back pain laterality, unspecified chronicity M54.6 [facility] [id number] [place] [address] Jul, [facility] [id number] [place] [address] Jul, [facility] [id number] [place] [address] Jul, [facility] [id number] [place] [address] Jul, Anxiety F41.9 [facility] [id number] [place] [address] Jul, Thoracic back pain, unspecified back pain laterality, unspecified chronicity M54.6 and Anxiety F41.9 [facility] [id number] [place] [address] Jun, Thoracic back pain, unspecified back pain laterality, unspecified chronicity M54.6 and Anxiety F41.9 [facility] [address] [address] May, Thoracic back pain, unspecified back pain laterality, unspecified chronicity M54.6 and Anxiety F41.9 [facility] [address] [address] Apr, Thoracic back pain, unspecified back pain laterality, unspecified chronicity M54.6 and Anxiety F41.9 [facility] [address] [address] Mar, [facility] [address] [address] Mar, Thoracic back pain, unspecified back pain laterality, unspecified chronicity M54.6 and Anxiety F41.9 [facility] [address] [address] Mar, Thoracic back pain, unspecified back pain laterality, unspecified chronicity M54.6 ; HTN (hypertension) I10 ; Hyperlipidemia E78.5 and Anxiety F41.9 [facility] [address] [address] Feb, Thoracic back pain, unspecified back pain laterality, unspecified chronicity M54.6 and Anxiety F41.9 [facility] [address] [address] Nov, [facility] [id number] [place] [address] Oct, [facility] [address] [address] Oct, Thoracic back pain, unspecified back pain laterality, unspecified chronicity M54.6 [facility] [id number] [place] [address] Oct, HTN (hypertension) I10 ; Constipation K59.00 ; Hyperlipidemia E78.5 ; Thoracic back pain, unspecified back pain laterality, unspecified chronicity M54.6 ; Chronic pain G89.29 ; Anxiety F41.9 ; Chronic kidney failure N18.9 ; Environmental allergies Z91.09 ; Vitamin D deficiency E55.9 and Primary insomnia F51.01 [facility] [id number] [place] [address] Sep, Anxiety F41.9 [facility] [id number] [place] [address] Sep, [facility] [address] [address] August, Anxiety F41.9 [facility] [id number] [place] [address] August, [facility] [id number] [place] [address] Jul, Anxiety F41.9 [facility] [id number] [place] [address] Jul, [facility] [id number] [place] [address] Jun, Anxiety F41.9 [facility] [id number] [place] [address] Jun, [facility] [id number] [place] [address] May, [facility] [id number] [place] [address] May, [facility] [address] [place] [address] May, [facility] [address], [place] [address] Apr, [facility] [id number] [place] [address] Apr, [facility] [id number] [place] [address] Apr, Anxiety F41.9 [facility] [id number] [place] [address] Apr, Anxiety F41.9 [facility] [id number] [place] [address] Apr, [facility] [id number] [place] [address] Mar, HTN (hypertension) I10 ; Tremor R25.1 ; Hypercholesterolemia E78.0 ; Constipation K59.00 ; Chronic pain G89.29 ; Hyperlipidemia E78.5 ; Insomnia G47.00 ; Anxiety F41.9 and Thoracic back pain, unspecified back pain laterality, unspecified chronicity M54.6 [facility] [id number] [place] [address] Mar, Tremor R25.1 ; HTN (hypertension) I10 ; Hypercholesterolemia E78.0 ; Constipation K59.00 ; Chronic pain G89.29 ; Hyperlipidemia E78.5 ; Insomnia G47.00 ; Anxiety F41.9 and Thoracic back pain, unspecified back pain laterality, unspecified chronicity M54.6 [facility] [address] [address] Mar, [facility] [id number] [place] [address] Mar, [facility] [address], [place] [address] Feb, [facility] [id number] [address] 13 Jan, 2016 [facility] [id number] [place] [address] 10 Jan, 2016 [facility] [address] [place] [address] 15 Dec, 2015 [facility] [id number] [place] [address] Nov, [facility] [id number] [place] [address] Nov, [facility] [id number] [place] [address] Oct, Anxiety F41.9 [facility] [id number] [place] [address] Oct, Chronic pain G89.29 [facility] [id number] [place] [address] Sep, [facility] [id number] [place] [address] Sep, [facility] [id number] [place] [address] Sep, [facility] [address] [place] [address] Sep, [facility] [id number] [place] [address] Sep, Chronic pain syndrome G89.4 [facility] [address] [place] [address] 15 Sep, 2015 HTN (hypertension) I10 ; Chronic pain G89.29 ; Hypercholesterolemia E78.0 ; Chronic kidney failure N18.9 ; Constipation, unspecified constipation type K59.00 ; Anxiety F41.9 and Thoracic back pain, unspecified back pain laterality, unspecified chronicity M54.6 [facility] [id number] [place] [address] August, Chronic pain syndrome G89.4 [facility] [id number] [place] [address] August, Chronic pain syndrome G89.4 [facility] [id number] [place] [address] Jul, Anxiety disorder, unspecified F41.9 and Chronic pain syndrome G89.4 [facility] [id number] [place] [address] Jul, Insomnia, unspecified G47.00 and Chronic pain syndrome G89.4 [facility] [id number] [place] [address] Jul, Allergic rhinitis J30.9 [facility] [id number] [place] [address] Jul, Constipation, unspecified K59.00 [facility] [id number] [place] [address] Jul, [facility] [id number] [place] [address] Jun, [facility] [id number] [place] [address] Jun, [facility] [address], [place] [address] Jun, [facility] [id number] [address] Jun, [facility] [address] [place] [address] Jun, [facility] [id number] [place] [address] Jun, [facility] [address], [place] [address] May, [facility] [id number] [place] [address] May, [facility] [id number] [place] [address] May, Anxiety F41.9 ; Insomnia G47.00 ; Hyperlipidemia E78.5 ; Chronic pain G89.29 ; HTN (hypertension) I10 ; Environmental allergies V15.09 and Constipation 564.00 [facility] [id number] [place] [address] Apr, [facility] [id number] [place] [address] Apr, [facility] [id number] [place] [address] Apr, [facility] [id number] [place] [address] Mar, [facility] [id number] [place] [address] Mar, [facility] [id number] [place] [address] Mar, [facility] [id number] [place] [address] Feb, [facility] [id number] [place] [address] Feb, [facility] [id number] [place] [address] Feb, [facility] [address] [place] [address] Jan, HTN (hypertension) I10 ; Constipation K59.00 ; Chronic pain G89.29 ; Hyperlipidemia E78.5 ; Hypercholesterolemia E78.0 ; Insomnia G47.00 and Anxiety F41.9 [facility] [id number] [place] [address] Jan, [facility] [address], [place] [address] Dec, [facility] [address], [place] [address] Nov, [facility] [address], [place] [address] Oct, Chronic kidney disease, unspecified 585.9 ; Chronic pain syndrome 338.4 ; Hyperlipidemia 272.4 and Essential hypertension 401.9 [facility] [address], [place] [address] Oct, Chronic kidney disease 585.9 [facility] [id number] [place] [address] Oct, [facility] [id number] [place] [address] Oct, Chronic kidney disease, unspecified 585.9 ; Hypercalcemia 275.42 ; Hyperlipidemia 272.4 ; Essential hypertension 401.9 ; Chronic pain syndrome 338.4 ; Insomnia 780.52 ; Constipation 564.00 ; Environmental allergies V15.09 and Anxiety 300.00 [facility] [address], [place] [address] Oct, Chronic kidney disease 585.9 [facility] [address], [place] [address] Oct, [facility] [address], [place] [address] Oct, Chronic kidney disease 585.9 and Hyperlipidemia 272.4 [facility] [address], [place] [address] Oct, [facility] [address], [place] [address] Oct, [facility] [address], [place] [address] Sep, [facility] [address] [facility] [id number] [place] [address] 15 Sep, 2014 [facility] [address] [id number], [place] [address] Sep, Chronic kidney disease 585.9 and Hyperlipidemia 272.4 [facility] [place] [facility] [address] [id number] [place] [address] Sep, [facility] [address] [id number] [place] [address] August, [facility] [address] [id number] [place] [address] August, [facility] [address] [id number] [place] [address] Jul, [facility] [address] [facility] [id number] [place] [address] Jul, [facility] [address] [facility] [id number], [place] [address] Jun, [facility] [place] [facility] [address] [id number] [place] [address] Jun, [facility] [address] [facility] [id number], [place] [address] Jun, [facility] [place] [facility] [address] [facility] [id number], [place] [address] Jun, [facility] [place] [facility] [address] [id number], [place] [address] Jun, [facility] [place] [facility] [address] [facility] [id number] [place] [address] Jun, [facility] [place] [facility] [address] [id number], [place] [address] Jun, [facility] [place] [facility] [address] [facility] [id number], [place] [address] Jun, [facility] [place] [facility] [address] [id number] [place] [address] 16 May, 2014 [facility] [place] [facility] [address] [id number] [place] [address] May, [facility] [place] [facility] [address] [id number] [place] [address] May, [facility] [place] [facility] [address] [id number] [place] [address] May, [facility] [place] [facility] [address] [id number] [place] [address] Apr, [facility] [place] [facility] [address] [id number] [place] [address] Apr, [facility] [place] [facility] [address] [id number] [place] [address] Apr, [facility] [place] [facility] [address] [id number] [place] [address] Apr, [facility] [place] [facility] [address] [id number] [place] [address] Apr, [facility] [place] [facility] [address] [id number] [place] [address] Apr, [facility] [place] [facility] [address] [id number] [place] [address] Apr, [facility] [place] [facility] [address] [id number] [place] [address] Apr, [facility] [place] [facility] [address] [id number] [place] [address] Apr, [facility] [place] [facility] [address] [id number] [place] [address] Apr, [facility] [place] [facility] [address] [id number] [place] [address] Apr, [facility] [place] [facility] [address] [id number] [place] [address] Mar, [facility] [place] [facility] [address] [id number] [place] [address] Mar, [facility] [place] [facility] [address] [id number] [place] [address] Feb, [facility] [place] [facility] [address] [id number] [place] [address] Feb, [facility] [place] [facility] [address] [id number] [place] [address] Feb, [facility] [place] [facility] [address] [id number] [place] [address] Feb, [facility] [place] [facility] [address] [id number] [place] [address] Feb, [facility] [place] [facility] [address] [id number] [place] [address] Feb, [facility] [place] [facility] [address] [id number] [place] [address] Feb, [facility] [place] [facility] [address] [id number] [place] [address] Feb, [facility] [place] [facility] [address] [id number] [place] [address] Feb, [facility] [place] [facility] [address] [id number] [place] [address] Feb, [facility] [place] [facility] [address] [id number], [place] [address] Jan, [facility] [place] [facility] [address] [id number] [place] [address] Jan, [facility] [place] [facility] [address] [id number] [place] [address] Jan, [facility] [place] [facility] [address] [id number], [place] [address] Jan, [facility] [place] [facility] [address] [address] [id number], [place] [address] Jan, [facility] [place] [facility] [address] [id number] [place] [address] 24 Jan, 2014 [facility] [place] [facility] [address] [id number] [place] [address] Jan, [facility] [place] [facility] [address] [id number] [place] [address] Jan, [facility] [place] [facility] [address] [id number] [place] [address] 16 Jan, 2014 [facility] [place] [facility] [address] [id number] [place] [address] Jan, [facility] [place] [facility] [address] [id number] [place] [address] Jan, [facility] [place] [facility] [address] [id number] [place] [address] 26 Dec, 2013 [facility] [place] [facility] [address] [id number] [place] [address] 26 Dec, 2013 [facility] [place] [facility] [address] [id number] [place] [address] 19 Dec, 2013 [facility] [place] [facility] [address] [id number] [place] [address] 19 Dec, 2013 [facility] [place] [facility] [address] [id number] [place] [address] 18 Dec, 2013 [facility] [place] [facility] [address] [id number], [place] [address] 18 Dec, 2013 [facility] [place] [facility] [address] [id number] [place] [address] 03 Dec, 2013 [facility] [place] [facility] [address] [id number] [place] [address] 03 Dec, 2013 [facility] [place] [facility] [address] [id number] [place] [address] 20 Nov, 2013 [facility] [place] [facility] [address] [id number] [place] [address] Nov, [facility] [place] [facility] [address] [id number] [place] [address] Nov, [facility] [place] [facility] [address] [id number] [place] [address] Nov, [facility] [place] [facility] [address] [id number] [place] [address] Nov, [facility] [place] [facility] [address] [id number] [place] [address] Nov, [facility] [place] [facility] [address] [id number] [place] [address] Nov, [facility] [place] [facility] [address] [id number] [place] [address] Nov, [facility] [place] [facility] [address] [id number] [place] [address] Oct, [facility] [place] [facility] [address] [id number] [place] [address] Oct, [facility] [place] [facility] [address] [id number] [place] [address] Oct, [facility] [place] [facility] [address] [id number] [place] [address] Oct, [facility] [place] [facility] [address] [id number] [place] [address] Sep, [facility] [place] [facility] [address] [id number] [place] [address] Sep, [facility] [place] [facility] [address] [id number] [place] [address] Sep, [facility] [place] [facility] [address] [id number] [place] [address] Sep, [facility] [place] [facility] [address] [id number] [place] [address] Sep, [facility] [place] [facility] [address] [id number] [place] [address] Sep, [facility] [place] [facility] [address] [id number] [place] [address] Sep, [facility] [place] [facility] [address] [id number] [place] [address] Sep, [facility] [place] [facility] [address] [id number] [place] [address] August, [facility] [place] [facility] [address] [id number] [place] [address] August, [facility] [place] [facility] [address] [id number] [place] [address] August, [facility] [place] [facility] [address] [id number] [place] [address] August, [facility] [place] [facility] [address] [id number] [place] [address] August, [facility] [place] [facility] [address] [id number] [place] [address] August, [facility] [place] [facility] [address] [id number] [place] [address] August, [facility] [place] [facility] [address] [id number] [place] [address] August, [facility] [place] [facility] [address] [id number] [place] [address] August, [facility] [place] [facility] [address] [id number] [place] [address] August, [facility] [place] [facility] [address] [id number] [place] [address] Jul, [facility] [place] [facility] [address] [id number] [place] [address] Jul, [facility] [place] [facility] [address] [id number] [place] [address] Jul, [facility] [place] [facility] [address] [id number] [place] [address] Jul, [facility] [place] [facility] [address] [id number] [place] [address] Jul, [facility] [place] [facility] [address] [id number] [place] [address] Jul, [facility] [place] [facility] [address] [id number] [place] [address] Jul, [facility] [place] [facility] [address] [id number] [place] [address] Jul, [facility] [place] [facility] [address] [id number] [place] [address] Jun, [facility] [place] [facility] [address] [id number] [place] [address] Jun, [facility] [place] [facility] [address] [id number] [place] [address] Jun, [facility] [place] [facility] [address] [id number] [place] [address] Jun, [facility] [place] [facility] [address] [facility] [id number] [place] [address] Jun, [facility] [place] [facility] [address] [id number] [place] [address] Jun, [facility] [place] [facility] [address] [id number] [place] [address] May, [facility] [place] [facility] [address] [id number] [place] [address] May, [facility] [place] [facility] [address] [id number] [place] [address] May, [facility] [place] [facility] [address] [id number] [place] [address] May, [facility] [place] [facility] [address] [id number] [place] [address] May, [facility] [place] [facility] [address] [id number] [place] [address] May, [facility] [place] [facility] [address] [id number] [place] [address] May, [facility] [place] [facility] [address] [id number] [place] [address] Apr, [facility] [place] [facility] [address] [id number] [place] [address] Apr, [facility] [place] [facility] [address] [id number] [place] [address] Apr, [facility] [place] [facility] [address] [id number] [place] [address] Apr, [facility] [place] [facility] [address] [id number] [place] [address] Apr, [facility] [place] [facility] [address] [id number] [place] [address] Apr, [facility] [place] [facility] [address] [id number] [place] [address] Mar, [facility] [place] [facility] [address] [id number] [place] [address] Mar, [facility] [place] [facility] [address] [id number] [place] [address] Mar, [facility] [place] [facility] [address] [id number] [place] [address] Mar, [facility] [place] [facility] [address] [id number] [place] [address] Mar, [facility] [place] [facility] [address] [id number] [place] [address] Mar, [facility] [place] [facility] [address] [id number], [place] [address] 16 Mar, 2013 [facility] [address] [id number] [place] [address] 16 Mar, 2013 [facility] [place] [facility] [address] [id number], [place] [address] Mar, [facility] [address] [id number] [place] [address] Mar, [facility] [place] [facility] [address] [id number] [place] [address] Feb, [facility] [place] [facility] [address] [id number] [place] [address] Feb, [facility] [place] [facility] [address] [id number] [place] [address] Feb, [facility] [address] [id number], [place] [address] Feb, [facility] [place] [facility] [address] [id number], [place] [address] Feb, [facility] [address] [id number] [place] [address] 14 Feb, 2013 [facility] [place] [facility] [address] [facility] [id number], [place] [address] Feb, [facility] [place] [facility] [address] [id number], [place] [address] Feb, [facility] [place] [facility] [address] [id number], [place] [address] Feb, [facility] [place] [facility] [address] [id number], [place] [address] Feb, [facility] [place] [facility] [address] [id number], [place] [address] Jan, [facility] [place] [facility] [address] [id number], [place] [address] Jan, [facility] [place] [facility] [address] [id number] [place] [address] Jan, [facility] [place] [facility] [address] [id number] [place] [address] Jan, [facility] [place] [facility] [address] [id number] [place] [address] Jan, [facility] [place] [facility] [address] [id number] [place] [address] Jan, [facility] [place] [facility] [address] [id number] [place] [address] Jan, [facility] [place] [facility] [address] [id number] [place] [address] Jan, [facility] [place] [facility] [address] [id number] [place] [address] Jan, [facility] [place] [facility] [address] [id number] [place] [address] 25 Dec, 2012 [facility] [place] [facility] [address] [id number] [place] [address] Dec, [facility] [place] [facility] [address] [id number] [place] [address] Dec, [facility] [place] [facility] [address] [id number] [place] [address] Dec, [facility] [place] [facility] [address] [id number] [place] [address] Nov, [facility] [place] [facility] [address] [id number] [place] [address] Nov, [facility] [place] [facility] [address] [id number] [place] [address] Nov, [facility] [place] [facility] [address] [id number] [place] [address] Nov, [facility] [place] [facility] [address] [id number] [place] [address] Nov, [facility] [address] [id number] [place] [address] Nov, [facility] [place] [facility] [address] [id number] [place] [address] Oct, [facility] [place] [facility] [address] [id number] [place] [address] Oct, [facility] [place] [facility] [address] [id number] [place] [address] Oct, [facility] [address] [id number] [place] [address] Oct, [facility] [place] [facility] [address] [id number] [place] [address] Sep, [facility] [place] [facility] [address] [id number] [place] [address] Sep, [facility] [place] [facility] [address] [id number] [place] [address] Sep, [facility] [place] [facility] [address] [id number] [place] [address] Sep, [facility] [place] [facility] [address] [id number] [place] [address] Sep, [facility] [place] [facility] [address] [id number], [place] [address] August, [facility] [place] [facility] [address] [id number], [place] [address] August, [facility] [place] [facility] [address] [id number] [place] [address] Jul, [facility] [place] [facility] [address] [id number] [place] [address] Jul, [facility] [place] [facility] [address] [id number] [place] [address] 15 Jul, 2012 [facility] [place] [facility] [address] [id number] [place] [address] 09 Jul, 2012 [facility] [address] [id number] [place] [address] 08 Jul, 2012 [facility] [place] [facility] [address] [id number] [place] [address] 26 Jun, 2012 [facility] [place] [facility] [address] [id number] [place] [address] 20 Jun, 2012 [facility] [place] [facility] [address] [id number] [place] [address] 15 Jun, 2012 [facility] [address] [id number] [place] [address] 06 Jun, 2012 [facility] [place] [facility] [address] [facility] [id number] [place] [address] Jun, [facility] [place] [facility] [id number] [address] 28 May, 2012 [facility] [address] [facility] [id number] [place] [address] 27 May, 2012 [facility] [place] [facility] [id number] [address] 25 May, [address] [facility] [address] [id number] [place] [address] 21 May, 2012 [facility] [place] [facility] [address] [facility] [id number] [place] [address] 20 May, 2012 [facility] [place] [facility] [address] [facility] [id number] [place] [address] 14 May, 2012 [facility] [place] [facility] [address] [facility] [id number] [place] [address] 13 May, 2012 [facility] [place] [facility] [address] [facility] [id number], [place] [address] 08 May, 2012 [facility] [place] [facility] [address] [id number], [place] [address] May, [facility] [address] [id number] [place] [address] Apr, [facility] [place] [facility] [address] [id number] [place] [address] Apr, [facility] [address] [id number] [place] [address] Apr, [facility] [place] [facility] [address] [id number] [place] [address] Apr, [facility] [address] [id number] [place] [address] Apr, [facility] [address] [id number] [place] [address] Mar, [facility] [address] [id number] [place] [address] Mar, [facility] [place] [facility] [address] [id number] [place] [address] Mar, [facility] [address] [id number] [place] [address] Mar, [facility] [place] [facility] [address] [id number] [place] [address] Mar, [facility] [place] [facility] [address] [id number], [place] [address] Mar, [facility] [place] [facility] [address] [id number], [place] [address] Mar, [facility] [place] [facility] [address] [id number] [place] [address] Mar, [facility] [place] [facility] [address] [id number] [place] [address] Mar, [facility] [place] [facility] [address] [id number] [place] [address] Mar, [facility] [place] [facility] [address] [id number] [place] [address] 30 Feb, 2012 [facility] [address] [id number] [place] [address] 30 Feb, 2012 [facility] [place] [facility] [address] [id number] [place] [address] Feb, [facility] [place] [facility] [address] [id number] [place] [address] Feb, [facility] [place] [facility] [address] [id number] [place] [address] Feb, [facility] [place] [facility] [address] [id number] [place] [address] Feb, [facility] [place] [facility] [address] [id number] [place] [address] Feb, [facility] [place] [facility] [address] [id number] [place] [address] Feb, [facility] [place] [facility] [address] [id number] [place] [address] 16 Feb, 2012 [facility] [place] [facility] [address] [id number] [place] [address] 16 Feb, 2012 [facility] [place] [facility] [address] [id number] [place] [address] Feb, [facility] [place] [facility] [address] [id number] [place] [address] Feb, [facility] [place] [facility] [address] [id number] [place] [address] Feb, [facility] [place] [facility] [address] [id number] [place] [address] Feb, [facility] [place] [facility] [address] [id number] [place] [address] Feb, [facility] [place] [facility] [address] [id number] [place] [address] Feb, [facility] [place] [facility] [address] [id number] [place] [address] Feb, [facility] [place] [facility] [address] [id number] [place] [address] Feb, [facility] [place] [facility] [address] [id number] [place] [address] Jan, [facility] [place] [facility] [address] [id number] [place] [address] Jan, [facility] [place] [facility] [address] [id number] [place] [address] Jan, [facility] [place] [facility] [address] [id number] [place] [address] Jan, [facility] [place] [facility] [address] [id number] [place] [address] Jan, [facility] [place] [facility] [address] [id number] [place] [address] Jan, [facility] [place] [facility] [address] [id number] [place] [address] Jan, [facility] [place] [facility] [address] [id number], [place] [address] Jan, [facility] [place] [facility] [address] [facility] [id number], [place] [address] Jan, [facility] [place] [facility] [address] [id number], [place] [address] Jan, [facility] [place] [facility] [address] [id number], [place] [address] 24 Dec, 2011 [facility] [place] [facility] [address] [id number], [place] [address] 18 Dec, 2011 [facility] [place] [facility] [address] [id number], [place] [address] 04 Dec, 2011 [facility] [place] [facility] [address] [id number], [place] [address] Dec, [facility] [place] [facility] [address] [id number] [place] [address] Nov, [facility] [place] [facility] [address] [id number] [place] [address] Nov, [facility] [place] [facility] [address] [id number] [place] [address] Nov, [facility] [place] [facility] [address] [id number] [place] [address] Nov, [facility] [place] [facility] [address] [id number] [place] [address] Nov, [facility] [place] [facility] [address] [id number] [place] [address] Nov, [facility] [place] [facility] [address] [id number] [place] [address] Oct, [facility] [place] [facility] [address] [id number] [place] [address] Oct, [facility] [place] [facility] [address] [id number] [place] [address] Oct, [facility] [place] [facility] [address] [id number] [place] [address] Oct, [facility] [place] [facility] [address] [id number] [place] [address] Oct, [facility] [place] [facility] [address] [id number] [place] [address] Sep, [facility] [place] [facility] [address] [id number] [place] [address] Sep, [facility] [place] [facility] [address] [id number] [place] [address] Sep, [facility] [place] [facility] [address] [id number] [place] [address] Sep, [facility] [place] [facility] [address] [id number] [place] [address] 05 Sep, 2011 [facility] [address] [id number] [place] [address] August, [facility] [place] [facility] [address] [id number] [place] [address] August, [facility] [address] [id number] [place] [address] August, [facility] [address] [id number] [place] [address] August, [facility] [address] [id number] [place] [address] Jul, [facility] [address] [id number] [place] [address] Jul, [facility] [address] [id number] [place] [address] Jul, [facility] [address] [id number] [place] [address] Jul, [facility] [address] [id number] [place] [address] Jul, [facility] [address] [id number] [place] [address] Jul, [facility] [place] [facility] [address] [id number] [place] [address] Jul, [facility] [place] [facility] [address] [id number] [place] [address] 10 Jul, 2011 [facility] [place] [facility] [address] [id number] [place] [address] 09 Jul, 2011 [facility] [place] [facility] [address] [id number] [place] [address] Jul, [facility] [place] [facility] [address] [id number] [place] [address] Jul, [facility] [address] [id number] [place] [address] Jul, [facility] [place] [facility] [address] [id number] [place] [address] Jul, [facility] [place] [facility] [address] [id number] [place] [address] Jul, [facility] [place] [facility] [address] [id number] [place] [address] Jun, [facility] [place] [facility] [address] [id number] [place] [address] Jun, [facility] [place] [facility] [address] [id number] [place] [address] Jun, [facility] [place] [facility] [address] [id number] [place] [address] Jun, [facility] [place] [facility] [address] [id number] [place] [address] May, [facility] [place] [facility] [address] [id number] [place] [address] May, [facility] [place] [facility] [address] [id number] [place] [address] May, [facility] [place] [facility] [address] [id number] [place] [address] Apr, [facility] [place] [facility] [address] [id number] [place] [address] Apr, [facility] [place] [facility] [address] [id number] [place] [address] Apr, [facility] [place] [facility] [address] [id number] [place] [address] Apr, [facility] [place] [facility] [address] [id number] [place] [address] Apr, [facility] [place] [facility] [address] [id number] [place] [address] Mar, [facility] [place] [facility] [address] [id number] [place] [address] Mar, [facility] [place] [facility] [address] [id number] [place] [address] Mar, [facility] [place] [facility] [address] [id number] [place] [address] Mar, [facility] [place] [facility] [address] [id number] [place] [address] 16 Mar, 2011 [facility] [place] [facility] [address] [id number] [place] [address] Mar, [facility] [place] [facility] [address] [id number] [place] [address] Mar, [facility] [place] [facility] [address] [id number] [place] [address] Feb, [facility] [place] [facility] [address] [id number] [place] [address] Feb, [facility] [place] [facility] [address] [id number] [place] [address] Feb, [facility] [place] [facility] [address] [id number] [place] [address] Feb, [facility] [place] [facility] [address] [id number] [place] [address] 16 Feb, 2011 [facility] [place] [facility] [address] [id number] [place] [address] 14 Feb, 2011 [facility] [place] [facility] [address] [id number] [place] [address] 10 Feb, 2011 [facility] [place] [facility] [address] [id number] [place] [address] 31 Jan, 2011 [facility] [place] [facility] [address] [id number] [place] [address] 31 Jan, 2011 [facility] [place] [facility] [address] [id number] [place] [address] 31 Jan, 2011 [facility] [address] [id number] [place] [address] 18 Jan, 2011 [facility] [address] [id number] [place] [address] 17 Jan, 2011 [facility] [address] [id number] [place] [address] 17 Jan, 2011 [facility] [address] [id number] [place] [address] 17 Jun, 2010 [facility] [address] [id number] [place] [address] 30 Mar, 2010 [facility] [address] [id number] [place] [address] 20 Mar, 2010 [facility] [address] [id number] [place] [address] 14 Mar, 2010 [facility] [address] [id number] [place] [address] 14 Mar, 2010 [facility] [address] [id number] [place] [address] 13 Mar, 2010 [facility] [place] [facility] [address] [id number] [place] [address] 07 Mar, 2010 [facility] [place] [facility] [address] [id number] [place] [address] 02 Mar, 2010 [facility] [place] [facility] [address] [id number] [place] [address] Mar, [facility] [place] [facility] [address] [id number] [place] [address] 30 Feb, 2010 [facility] [place] [facility] [address] [id number] [place] [address] 29 Feb, 2010 [facility] [place] [facility] [address] [id number], [place] [address] 17 Feb, 2010 [facility] [place] [facility] [address] [id number] [place] [address] 17 Feb, 2010 [facility] [place] [facility] [address] [id number] [place] [address] 16 Feb, 2010 [facility] [place] [facility] [address] [id number] [place] [address] 08 Feb, 2010 [facility] [place] [facility] [address] [id number] [place] [address] 04 Feb, 2010 [facility] [place] [facility] [address] [id number] [place] [address] Feb, [facility] [place] [facility] [address] [id number] [place] [address] 28 Jan, 2010 [facility] [place] [facility] [address] [id number] [place] [address] Jan, [facility] [place] [facility] [address] [id number] [place] [address] Jan, [facility] [place] [facility] [address] [id number] [place] [address] 18 Jan, 2010 [facility] [place] [facility] [address] [id number] [place] [address] 29 Mar, 2009 [facility] [place] [facility] [address] [id number], [place] [address] 22 Mar, 2009 [facility] [place] [facility] [address] [id number], [place] [address] 19 Mar, 2009 [facility] [place] [facility] [address] [id number] [place] [address] 19 Mar, 2009 [facility] [place] [facility] [address] [id number] [place] [address] 14 Mar, 2009 [facility] [place] [facility] [address] [id number] [place] [address] 10 Mar, 2009 [facility] [place] [facility] [address] [facility] [id number] [place] [address] Feb, [facility] [address] [facility] [id number], [place] [address] Feb, [facility] [address] [id number], [place] [address] Jan, [facility] [address] [facility] [id number], [place] [address] Sep, [facility] [address] [facility] [id number], [place] [address] May, IMMUNIZATIONS No Known Immunizations SOCIAL HISTORY Never Assessed REASON FOR VISIT EMR-[facility] PLAN OF CARE VITAL SIGNS MEDICATIONS Unknown [...] Surgical History Left ear surgery Hospitalization History [facility]- Spontaneous Pneumothorax Hospitalization History [facility]- Colon resection Hospitalization History via [facility] - diarrhea/ couldnt urinate nov 2017
--- OUTSIDE RECORDS SUMMARY | 2018-10-15 01:10 | XMS REPORT ---
Author Author AGUSTÍN PRATER [facility] Address [address] [place] [address] Care Team Providers Care Associate Financial Planner Name Role Phone AGUSTÍN PRATER Unavailable PROBLEMS Type Condition ICD9-CM Code SYN11-WP Code Onset Dates Condition Status SNOMED Code Problem Constipation K59.00 Active 82683492 Problem Chronic pain G89.29 Active 43911446 Problem Hyperlipidemia E78.5 Active 97111675 Problem Insomnia G47.00 Active 717455725 Problem Chronic kidney disease, stage III (moderate) N18.3 Active 316884088 Problem Anxiety F41.9 Active 25235733 Problem Vision loss H54.7 Active 818499121 Problem HTN (hypertension) I10 Active 37205801 Problem Thoracic back pain, unspecified back pain laterality, unspecified chronicity M54.6 Active 147617975 Problem Vitamin D deficiency E55.9 Active 26348671 Problem Environmental allergies Z91.09 Active 545881645 Problem Primary insomnia F51.01 Active 3615320 ALLERGIES No Information ENCOUNTERS Encounter Location Date Diagnosis [facility] [address] [address] Jul, Thoracic back pain, unspecified back pain laterality, unspecified chronicity M54.6 [facility] [id number] [place] [address] Jun, Anxiety F41.9 and Thoracic back pain, unspecified back pain laterality, unspecified chronicity M54.6 [facility] [address] [address] Jun, Anxiety F41.9 and Thoracic back pain, unspecified back pain laterality, unspecified chronicity M54.6 [facility] [id number] [place] [address] Jun, Thoracic back pain, unspecified back pain laterality, unspecified chronicity M54.6 [facility] [id number] [place] [address] Jun, Anxiety F41.9 and Thoracic back pain, unspecified back pain laterality, unspecified chronicity M54.6 [facility] [id number] [place] [address] May, [facility] [address] [address] May, [facility] [id number] [place] [address] May, [facility] [id number] [place] [address] May, Anxiety F41.9 and Encounter for medication monitoring Z51.81 [facility] [address] [address] May, Anxiety F41.9 and Thoracic back pain, unspecified back pain laterality, unspecified chronicity M54.6 [facility] [id number] [place] [address] Apr, Hyperlipidemia 272.4 [facility] [id number] [place] [address] Apr, Chronic pain G89.29 ; Anxiety F41.9 ; Cervical radiculopathy M54.12 and Vision loss H54.7 [facility] [id number] [place] [address] Apr, [facility] [id number] [place] [address] Apr, Anxiety F41.9 and Thoracic back pain, unspecified back pain laterality, unspecified chronicity M54.6 [facility] [id number] [place] [address] Mar, [facility] [id number] [place] [address] 10 Mar, 2018 Anxiety F41.9 and Thoracic back pain, unspecified back pain laterality, unspecified chronicity M54.6 [facility] [id number] [place] [address] 14 Feb, 2018 Anxiety F41.9 and Thoracic back pain, unspecified back pain laterality, unspecified chronicity M54.6 [facility] [id number] [place] [address] 07 Feb, 2018 Thoracic back pain, unspecified back pain laterality, unspecified chronicity M54.6 [facility] [address] [address] 29 Jan, 2018 [facility] [id number] [place] [address] 16 Jan, 2018 Anxiety F41.9 and Thoracic back pain, unspecified back pain laterality, unspecified chronicity M54.6 [facility] [id number] [place] [address] 19 Dec, 2017 Diarrhea of presumed infectious origin R19.7 [facility] [id number] [place] [address] 19 Dec, 2017 Diarrhea of presumed infectious origin R19.7 [facility] [id number] [place] [address] 18 Dec, 2017 Thoracic back pain, unspecified back pain laterality, unspecified chronicity M54.6 [facility] [id number] [place] [address] 17 Dec, 2017 [facility] [address] [address] 17 Dec, 2017 Anxiety F41.9 and Thoracic back pain, unspecified back pain laterality, unspecified chronicity M54.6 [facility] [id number] [place] [address] 13 Dec, 2017 Diarrhea of presumed infectious origin R19.7 [facility] [address] [address] Dec, [facility] [address], [place] [address] Dec, Anxiety F41.9 and Thoracic back pain, unspecified back pain laterality, unspecified chronicity M54.6 [address] [place] [address] Dec, Anxiety F41.9 and Thoracic back pain, unspecified back pain laterality, unspecified chronicity M54.6 [facility] [email or web address] [address] [place] [id number] Dec, Diarrhea of presumed infectious origin R19.7 ; Anxiety F41.9 ; Thoracic back pain, unspecified back pain laterality, unspecified chronicity M54.6 and HTN (hypertension) I10 [address] [place] [address] Dec, Anxiety F41.9 [facility] [address] [place], [place] [id number] Dec, Anxiety F41.9 ; Diarrhea of presumed infectious origin R19.7 ; Generalized abdominal pain R10.84 and Localized edema R60.0 [address] [address] Nov, [facility] [address] [place] [address] Nov, Anxiety F41.9 ; Urinary retention R33.9 ; Diarrhea of presumed infectious origin R19.7 ; Weakness R53.1 ; Acute kidney failure, unspecified N17.9 ; Chronic kidney disease, stage III (moderate) N18.3 and Thoracic back pain, unspecified back pain laterality, unspecified chronicity M54.6 [address], [place] [address] Oct, Thoracic back pain, unspecified back pain laterality, unspecified chronicity M54.6 and Anxiety F41.9 [address] [place] [address] Sep, Thoracic back pain, unspecified back pain laterality, unspecified chronicity M54.6 and Anxiety F41.9 [facility] [id number] [place] [address] Sep, Thoracic back pain, unspecified back pain laterality, unspecified chronicity M54.6 ; Anxiety F41.9 and Encounter for medication monitoring Z51.81 [facility] [id number] [place] [address] August, [facility] [address] [address] August, Thoracic back pain, unspecified back pain laterality, unspecified chronicity M54.6 and Anxiety F41.9 [facility] [id number] [place] [address] August, Hyperlipidemia E78.5 and HTN (hypertension) I10 [facility] [id number] [place] [address] August, [facility] [id number] [place] [address] August, Medicare welcome exam Z00.00 ; Chronic kidney failure N18.9 ; Anxiety F41.9 ; Chronic pain G89.29 ; Insomnia G47.00 ; Hyperlipidemia E78.5 ; HTN (hypertension) I10 and Thoracic back pain, unspecified back pain laterality, unspecified chronicity M54.6 [facility] [id number] [place] [address] Jul, [facility] [id number] [place] [address] Jul, [facility] [id number] [place] [address] Jul, [facility] [id number] [place] [address] Jul, Anxiety F41.9 [facility] [id number] [place] [address] Jul, Thoracic back pain, unspecified back pain laterality, unspecified chronicity M54.6 and Anxiety F41.9 [facility] [id number] [place] [address] Jun, Thoracic back pain, unspecified back pain laterality, unspecified chronicity M54.6 and Anxiety F41.9 [facility] [id number] [place] [address] May, Thoracic back pain, unspecified back pain laterality, unspecified chronicity M54.6 and Anxiety F41.9 [facility] [id number] [place] [address] Apr, Thoracic back pain, unspecified back pain laterality, unspecified chronicity M54.6 and Anxiety F41.9 [facility] [id number] [place] [address] Mar, [facility] [id number] [place] [address] Mar, Thoracic back pain, unspecified back pain laterality, unspecified chronicity M54.6 and Anxiety F41.9 [facility] [id number] [place] [address] Mar, Thoracic back pain, unspecified back pain laterality, unspecified chronicity M54.6 ; HTN (hypertension) I10 ; Hyperlipidemia E78.5 and Anxiety F41.9 [facility] [id number] [place] [address] Feb, Thoracic back pain, unspecified back pain laterality, unspecified chronicity M54.6 and Anxiety F41.9 [facility] [id number] [place] [address] Nov, [facility] [address] [address] Oct, [facility] [id number] [place] [address] Oct, Thoracic back pain, unspecified back pain laterality, unspecified chronicity M54.6 [facility] [id number] [place] [address] Oct, HTN (hypertension) I10 ; Constipation K59.00 ; Hyperlipidemia E78.5 ; Thoracic back pain, unspecified back pain laterality, unspecified chronicity M54.6 ; Chronic pain G89.29 ; Anxiety F41.9 ; Chronic kidney failure N18.9 ; Environmental allergies Z91.09 ; Vitamin D deficiency E55.9 and Primary insomnia F51.01 [facility] [id number] [place] [address] Sep, Anxiety F41.9 [facility] [address] [address] Sep, [facility] [id number] [place] [address] August, Anxiety F41.9 [facility] [address] [address] August, [facility] [id number] [place] [address] Jul, Anxiety F41.9 [facility] [address] [address] Jul, [facility] [id number] [place] [address] Jun, Anxiety F41.9 [facility] [address] [address] Jun, [facility] [id number] [place] [address] May, [facility] [address] [address] May, [facility] [address], [place] [address] May, [facility] [id number] [place] [address] Apr, [facility] [id number] [place] [address] Apr, [facility] [id number] [place] [address] Apr, Anxiety F41.9 [facility] [id number] [place] [address] Apr, Anxiety F41.9 [facility] [id number] [place] [address] Apr, [facility] [id number] [place] [address] Mar, HTN (hypertension) I10 ; Tremor R25.1 ; Hypercholesterolemia E78.0 ; Constipation K59.00 ; Chronic pain G89.29 ; Hyperlipidemia E78.5 ; Insomnia G47.00 ; Anxiety F41.9 and Thoracic back pain, unspecified back pain laterality, unspecified chronicity M54.6 [facility] [id number] [place] [address] Mar, Tremor R25.1 ; HTN (hypertension) I10 ; Hypercholesterolemia E78.0 ; Constipation K59.00 ; Chronic pain G89.29 ; Hyperlipidemia E78.5 ; Insomnia G47.00 ; Anxiety F41.9 and Thoracic back pain, unspecified back pain laterality, unspecified chronicity M54.6 [facility] [address], [place] [address] Mar, [facility] [address], [place] [address] Mar, [facility] [id number] [place] [address] Feb, [facility] [address], [place] [address] Jan, [facility] [address], [place] [address] Jan, [facility] [address], [place] [address] Dec, [facility] [id number] [place] [address] Nov, [facility] [id number] [place] [address] Nov, [facility] [id number] [place] [address] Oct, Anxiety F41.9 [facility] [id number] [place] [address] Oct, Chronic pain G89.29 [facility] [address], [place] [address] Sep, [facility] [id number] [place] [address] Sep, [facility] [address], [place] [address] Sep, [facility] [address], [place] [address] Sep, [facility] [address], [place] [address] Sep, Chronic pain syndrome G89.4 [facility] [address], [place] [address] Sep, HTN (hypertension) I10 ; Chronic pain G89.29 ; Hypercholesterolemia E78.0 ; Chronic kidney failure N18.9 ; Constipation, unspecified constipation type K59.00 ; Anxiety F41.9 and Thoracic back pain, unspecified back pain laterality, unspecified chronicity M54.6 [facility] [id number] [place] [address] August, Chronic pain syndrome G89.4 [facility] [id number] [place] [address] August, Chronic pain syndrome G89.4 [facility] [id number] [place] [address] Jul, Anxiety disorder, unspecified F41.9 and Chronic pain syndrome G89.4 [facility] [id number] [place] [address] Jul, Insomnia, unspecified G47.00 and Chronic pain syndrome G89.4 [facility] [id number] [place] [address] Jul, Allergic rhinitis J30.9 [facility] [id number] [place] [address] Jul, Constipation, unspecified K59.00 [facility] [id number] [place] [address] Jul, [facility] [id number] [place] [address] Jun, [facility] [id number] [place] [address] Jun, [facility] [id number] [place] [address] Jun, [facility] [id number] [place] [address] Jun, [facility] [id number] [place] [address] Jun, [facility] [id number] [place] [address] Jun, [facility] [id number], [place] [address] 04 May, 2015 [facility] [id number] [place] [address] May, [facility] [id number] [place] [address] May, Anxiety F41.9 ; Insomnia G47.00 ; Hyperlipidemia E78.5 ; Chronic pain G89.29 ; HTN (hypertension) I10 ; Environmental allergies V15.09 and Constipation 564.00 [facility] [address], [place] [address] Apr, [facility] [id number] [place] [address] Apr, [facility] [id number] [place] [address] Apr, [facility] [id number] [place] [address] Mar, [facility] [id number] [place] [address] Mar, [facility] [id number] [place] [address] Mar, [facility] [id number] [place] [address] Feb, [facility] [id number] [place] [address] Feb, [facility] [address], [place] [address] Feb, [facility] [id number] [place] [address] Jan, HTN (hypertension) I10 ; Constipation K59.00 ; Chronic pain G89.29 ; Hyperlipidemia E78.5 ; Hypercholesterolemia E78.0 ; Insomnia G47.00 and Anxiety F41.9 [facility] [address], [place] [address] Jan, [facility] [address], [place] [address] Dec, [facility] [address], [place] [address] Nov, [facility] [id number] [place] [address] Oct, Chronic kidney disease, unspecified 585.9 ; Chronic pain syndrome 338.4 ; Hyperlipidemia 272.4 and Essential hypertension 401.9 [facility] [id number] [place] [address] Oct, Chronic kidney disease 585.9 [facility] [id number] [place] [address] Oct, [facility] [id number] [place] [address] Oct, Chronic kidney disease, unspecified 585.9 ; Hypercalcemia 275.42 ; Hyperlipidemia 272.4 ; Essential hypertension 401.9 ; Chronic pain syndrome 338.4 ; Insomnia 780.52 ; Constipation 564.00 ; Environmental allergies V15.09 and Anxiety 300.00 [facility] [address], [place] [address] Oct, Chronic kidney disease 585.9 [facility] [address], [place] [address] Oct, [facility] [address], [place] [address] Oct, Chronic kidney disease 585.9 and Hyperlipidemia 272.4 [facility] [id number] [place] [address] Oct, [facility] [address], [place] [address] Oct, [facility] [id number] [address] 18 Sep, 2014 [facility] [address] [facility] [id number] [place] [address] Sep, [facility] [place] [facility] [address] [facility] [id number] [place] [address] 15 Sep, 2014 Chronic kidney disease 585.9 and Hyperlipidemia 272.4 [facility] [place] [facility] [address] [facility] [id number] [place] [address], [place] [address] Sep, [facility] [address] [facility] [id number] [place] [address] August, [facility] [address] [facility] [id number] [place] [address] August, [facility] [id number] [address] Jul, [facility] [id number] [address] Jul, [facility] [id number] [address] Jun, [facility] [id number] [address] Jun, [facility] [place] [facility] [id number] [address] 16 Jun, 2014 [facility] [place] [facility] [address] [facility] [id number] [address] Jun, [facility] [place] [facility] [address] [facility] [id number] [place] [address] Jun, [facility] [place] [facility] [address] [facility] [id number] [place] [address] Jun, [facility] [place] [facility] [address] [facility] [id number] [place] [address] Jun, [facility] [place] [facility] [id number], [place] [address] Jun, [facility] [place] [facility] [address] [id number] [place] [address] May, [facility] [place] [facility] [address] [id number] [place] [address] May, [facility] [place] [facility] [address] [id number] [place] [address] May, [facility] [place] [facility] [address] [id number] [place] [address] May, [facility] [place] [facility] [address] [id number] [place] [address] Apr, [facility] [place] [facility] [address] [id number] [place] [address] Apr, [facility] [place] [facility] [address] [id number] [place] [address] Apr, [facility] [place] [facility] [address] [id number] [place] [address] Apr, [facility] [place] [facility] [address] [id number] [place] [address] Apr, [facility] [place] [facility] [address] [id number] [place] [address] Apr, [facility] [place] [facility] [address] [id number] [place] [address] Apr, [facility] [place] [facility] [address] [id number], [place] [address] Apr, [facility] [place] [facility] [address] [id number] [place] [address] Apr, [facility] [place] [facility] [address] [id number] [place] [address] Apr, [facility] [place] [facility] [address] [id number] [place] [address] Apr, [facility] [place] [facility] [address] [id number] [place] [address] Mar, [facility] [place] [facility] [address] [id number] [place] [address] Mar, [facility] [place] [facility] [address] [id number] [place] [address] Feb, [facility] [place] [facility] [address] [id number] [place] [address] Feb, [facility] [place] [facility] [address] [id number] [place] [address] Feb, [facility] [place] [facility] [address] [id number] [place] [address] Feb, [facility] [place] [facility] [address] [id number] [place] [address] Feb, [facility] [place] [facility] [address] [id number] [place] [address] Feb, [facility] [place] [facility] [address] [id number] [place] [address] Feb, [facility] [place] [facility] [address] [id number] [place] [address] Feb, [facility] [place] [facility] [address] [id number] [place] [address] Feb, [facility] [place] [facility] [address] [id number] [place] [address] Feb, [facility] [place] [facility] [address] [id number] [place] [address] Jan, [facility] [place] [facility] [address] [id number] [place] [address] Jan, [facility] [place] [facility] [address] [id number] [place] [address] Jan, [facility] [place] [facility] [address] [id number] [place] [address] Jan, [facility] [place] [facility] [address] [id number] [place] [address] Jan, [facility] [place] [facility] [address] [id number] [place] [address] Jan, [facility] [place] [facility] [address] [id number] [place] [address] Jan, [facility] [place] [facility] [address] [id number] [place] [address] Jan, [facility] [place] [facility] [address] [id number] [place] [address] 16 Jan, 2014 [facility] [place] [facility] [address] [id number] [place] [address] Jan, [facility] [place] [facility] [address] [id number] [place] [address] Jan, [facility] [place] [facility] [address] [id number] [place] [address] 26 Dec, 2013 [facility] [place] [facility] [address] [id number] [place] [address] 26 Dec, 2013 [facility] [place] [facility] [address] [id number] [place] [address] 19 Dec, 2013 [facility] [place] [facility] [address] [id number], [place] [address] 19 Dec, 2013 [facility] [place] [facility] [address] [id number], [place] [address] 18 Dec, 2013 [facility] [place] [facility] [address] [id number] [place] [address] 18 Dec, 2013 [facility] [place] [facility] [address] [id number], [place] [address] 03 Dec, 2013 [facility] [place] [facility] [address] [id number] [place] [address] 03 Dec, 2013 [facility] [place] [facility] [address] [id number] [place] [address] Nov, [facility] [place] [facility] [address] [id number] [place] [address] Nov, [facility] [place] [facility] [address] [id number] [place] [address] Nov, [facility] [place] [facility] [address] [id number] [place] [address] Nov, [facility] [place] [facility] [address] [id number] [place] [address] Nov, [facility] [place] [facility] [address] [id number] [place] [address] Nov, [facility] [place] [facility] [address] [id number] [place] [address] Nov, [facility] [place] [facility] [address] [id number] [place] [address] Nov, [facility] [place] [facility] [address] [id number] [place] [address] Oct, [facility] [place] [facility] [address] [id number] [place] [address] Oct, [facility] [place] [facility] [address] [id number] [place] [address] Oct, [facility] [place] [facility] [address] [id number] [place] [address] Oct, [facility] [place] [facility] [address] [id number] [place] [address] Sep, [facility] [place] [facility] [address] [id number] [place] [address] Sep, [facility] [place] [facility] [address] [id number] [place] [address] Sep, [facility] [place] [facility] [address] [id number] [place] [address] Sep, [facility] [place] [facility] [address] [id number] [place] [address] Sep, [facility] [place] [facility] [address] [id number] [place] [address] Sep, [facility] [place] [facility] [address] [id number] [place] [address] Sep, [facility] [place] [facility] [address] [id number] [place] [address] Sep, [facility] [place] [facility] [address] [id number] [place] [address] August, [facility] [place] [facility] [address] [id number] [place] [address] August, [facility] [place] [facility] [address] [id number] [place] [address] August, [facility] [place] [facility] [address] [id number] [place] [address] August, [facility] [place] [facility] [address] [id number] [place] [address] August, [facility] [place] [facility] [address] [id number] [place] [address] August, [facility] [place] [facility] [address] [id number] [place] [address] August, [facility] [place] [facility] [address] [id number] [place] [address] August, [facility] [place] [facility] [address] [id number] [place] [address] August, [facility] [place] [facility] [address] [id number] [place] [address] August, [facility] [place] [facility] [address] [id number] [place] [address] Jul, [facility] [place] [facility] [address] [id number] [place] [address] Jul, [facility] [place] [facility] [address] [id number] [place] [address] Jul, [facility] [place] [facility] [address] [id number] [place] [address] Jul, [facility] [place] [facility] [address] [id number] [place] [address] Jul, [facility] [place] [facility] [address] [id number] [place] [address] Jul, [facility] [place] [facility] [address] [id number] [place] [address] Jul, [facility] [place] [facility] [address] [id number] [place] [address] Jul, [facility] [place] [facility] [address] [id number] [place] [address] Jun, [facility] [place] [facility] [address] [id number] [place] [address] Jun, [facility] [place] [facility] [address] [id number] [place] [address] Jun, [facility] [place] [facility] [address] [id number] [place] [address] Jun, [facility] [place] [facility] [address] [id number] [place] [address] Jun, [facility] [place] [facility] [address] [id number] [place] [address] Jun, [facility] [place] [facility] [address] [id number] [place] [address] May, [facility] [place] [facility] [address] [id number] [place] [address] May, [facility] [place] [facility] [address] [id number] [place] [address] May, [facility] [place] [facility] [address] [id number] [place] [address] May, [facility] [place] [facility] [address] [id number] [place] [address] May, [facility] [place] [facility] [address] [id number] [place] [address] May, [facility] [place] [facility] [address] [id number] [place] [address] May, [facility] [place] [facility] [address] [id number] [place] [address] Apr, [facility] [place] [facility] [address] [id number] [place] [address] Apr, [facility] [place] [facility] [address] [id number] [place] [address] Apr, [facility] [place] [facility] [address] [id number] [place] [address] Apr, [facility] [place] [facility] [address] [id number] [place] [address] Apr, [facility] [place] [facility] [address] [id number] [place] [address] Apr, [facility] [place] [facility] [address] [id number] [place] [address] Mar, [facility] [place] [facility] [address] [id number] [place] [address] Mar, [facility] [place] [facility] [address] [id number] [place] [address] Mar, [facility] [place] [facility] [address] [id number] [place] [address] Mar, [facility] [place] [facility] [address] [id number] [place] [address] Mar, [facility] [place] [facility] [address] [id number], [place] [address] Mar, [facility] [place] [facility] [address] [id number] [place] [address] 16 Mar, 2013 [facility] [place] [facility] [address] [id number] [place] [address] 16 Mar, 2013 [facility] [place] [facility] [address] [id number] [place] [address] Mar, [facility] [place] [facility] [address] [id number], [place] [address] Mar, [facility] [place] [facility] [address] [id number] [place] [address] Feb, [facility] [place] [facility] [address] [id number] [place] [address] Feb, [facility] [place] [facility] [address] [id number] [place] [address] Feb, [facility] [place] [facility] [address] [id number], [place] [address] Feb, [facility] [place] [facility] [address] [id number], [place] [address] Feb, [facility] [place] [facility] [address] [id number], [place] [address] 14 Feb, 2013 [facility] [place] [facility] [address] [id number], [place] [address] Feb, [facility] [place] [facility] [address] [id number], [place] [address] Feb, [facility] [place] [facility] [address] [id number], [place] [address] Feb, [facility] [place] [facility] [address] [id number], [place] [address] 08 Feb, 2013 [facility] [place] [facility] [address] [id number], [place] [address] Jan, [facility] [place] [facility] [address] [id number] [place] [address] Jan, [facility] [facility] [address] [id number] [place] [address] Jan, [facility] [place] [facility] [address] [id number] [place] [address] Jan, [facility] [facility] [address] [id number] [place] [address] Jan, [facility] [place] [facility] [address] [id number] [place] [address] Jan, [facility] [facility] [address] [id number] [place] [address] Jan, [facility] [facility] [address] [id number] [place] [address] Jan, [facility] [facility] [address] [id number] [place] [address] Jan, [facility] [facility] [address] [id number] [place] [address] Dec, [facility] [place] [facility] [address] [id number] [place] [address] Dec, [facility] [facility] [address] [id number] [place] [address] Dec, [facility] [place] [facility] [address] [id number] [place] [address] Dec, [facility] [place] [facility] [address] [id number] [place] [address] Nov, [facility] [place] [facility] [address] [id number] [place] [address] Nov, [facility] [place] [facility] [address] [id number] [place] [address] Nov, [facility] [place] [facility] [address] [id number] [place] [address] Nov, [facility] [facility] [address] [id number] [place] [address] Nov, [facility] [place] [facility] [address] [id number] [place] [address] Nov, [facility] [place] [facility] [address] [id number] [place] [address] Oct, [facility] [place] [facility] [address] [id number] [place] [address] Oct, [facility] [place] [facility] [address] [id number] [place] [address] Oct, [facility] [place] [facility] [address] [id number] [place] [address] Oct, [facility] [place] [facility] [address] [id number] [place] [address] Sep, [facility] [place] [facility] [address] [id number] [place] [address] Sep, [facility] [place] [facility] [address] [id number] [place] [address] Sep, [facility] [place] [facility] [address] [id number] [place] [address] Sep, [facility] [place] [facility] [address] [id number] [place] [address] Sep, [facility] [place] [facility] [address] [id number], [place] [address] August, [facility] [place] [facility] [address] [id number] [place] [address] August, [facility] [place] [facility] [address] [id number] [place] [address] Jul, [facility] [place] [facility] [address] [id number] [place] [address] Jul, [facility] [place] [facility] [address] [id number], [place] [address] 15 Jul, 2012 [facility] [address] [id number] [place] [address] Jul, [facility] [place] [facility] [address] [facility] [id number] [place] [address] 08 Jul, 2012 [facility] [facility] [address] [facility] [id number] [place] [address] Jun, [facility] [place] [facility] [address] [id number] [place] [address] Jun, [facility] [facility] [address] [id number] [place] [address] Jun, [facility] [facility] [address] [facility] [id number] [place] [address] Jun, [facility] [facility] [address] [id number] [address] Jun, [facility] [place] [facility] [address] [id number] [address] May, [facility] [facility] [address] [id number] [place] [address] 27 May, 2012 [facility] [facility] [address] [id number] [address] May, [facility] [place] [facility] [address] [id number] [address] 21 May, 2012 [facility] [place] [facility] [address] [facility] [id number], [place] [address] 20 May, 2012 [facility] [place] [facility] [address] [facility] [id number] [place] [address] 14 May, 2012 [facility] [place] [facility] [address] [facility] [id number] [place] [address] 13 May, 2012 [facility] [place] [facility] [id number] [place] [address] 08 May, 2012 [facility] [facility] [address] [id number] [place] [address] May, [facility] [place] [facility] [address] [id number] [place] [address] Apr, [facility] [place] [facility] [address] [id number] [place] [address] Apr, [facility] [place] [facility] [address] [id number] [place] [address] Apr, [facility] [facility] [address] [id number] [place] [address] Apr, [facility] [place] [facility] [address] [id number] [place] [address] Apr, [facility] [place] [facility] [address] [id number] [place] [address] Mar, [facility] [place] [facility] [address] [id number] [place] [address] Mar, [facility] [place] [facility] [address] [id number] [place] [address] Mar, [facility] [place] [facility] [address] [id number], [place] [address] Mar, [facility] [place] [facility] [address] [id number], [place] [address] Mar, [facility] [place] [facility] [address] [id number], [place] [address] Mar, [facility] [place] [facility] [address] [id number] [place] [address] Mar, [facility] [place] [facility] [address] [id number] [place] [address] Mar, [facility] [place] [facility] [address] [id number], [place] [address] Mar, [facility] [place] [facility] [address] [id number], [place] [address] Mar, [facility] [place] [facility] [address] [id number] [place] [address] 30 Feb, 2012 [facility] [place] [facility] [address] [id number], [place] [address] Feb, [facility] [place] [facility] [address] [facility] [id number] [place] [address] Feb, [facility] [place] [facility] [address] [id number] [place] [address] Feb, [facility] [place] [facility] [address] [id number] [place] [address], [place] [address] Feb, [facility] [place] [facility] [address] [id number] [place] [address] Feb, [facility] [place] [facility] [id number], [place] [address] Feb, [facility] [place] [facility] [address] [id number] [place] [address] Feb, [facility] [place] [facility] [address] [id number] [address] 16 Feb, 2012 [facility] [place] [facility] [address] [facility] [id number], [place] [address] 16 Feb, 2012 [facility] [place] [facility] [address] [id number], [place] [address] Feb, [facility] [place] [facility] [address] [id number], [place] [address] Feb, [facility] [place] [facility] [address] [id number], [place] [address] Feb, [facility] [place] [facility] [address] [facility] [id number], [place] [address] Feb, [facility] [place] [facility] [address] [id number], [place] [address] Feb, [facility] [place] [facility] [address] [id number] [place] [address] 08 Feb, 2012 [facility] [place] [facility] [address] [id number] [place] [address] 07 Feb, 2012 [facility] [place] [facility] [address] [id number] [place] [address] Feb, [facility] [place] [facility] [address] [id number] [place] [address] Jan, [facility] [place] [facility] [address] [id number] [place] [address] Jan, [facility] [place] [facility] [address] [id number] [place] [address] Jan, [facility] [place] [facility] [address] [id number] [place] [address] Jan, [facility] [place] [facility] [address] [id number] [place] [address] Jan, [facility] [place] [facility] [address] [id number] [place] [address] Jan, [facility] [place] [facility] [address] [id number] [place] [address] Jan, [facility] [place] [facility] [address] [id number] [place] [address] Jan, [facility] [place] [facility] [address] [id number] [place] [address] Jan, [facility] [place] [facility] [address] [id number] [place] [address] Jan, [facility] [place] [facility] [address] [id number] [place] [address] 24 Dec, 2011 [facility] [place] [facility] [address] [id number] [place] [address] 18 Sep2011 [facility] [place] [facility] [address] [id number] [place] [address] Dec, [facility] [place] [facility] [address] [id number] [place] [address] Dec, [facility] [place] [facility] [address] [id number] [place] [address] Nov, [facility] [place] [facility] [address] [id number] [place] [address] Nov, [facility] [place] [facility] [address] [id number] [place] [address] Nov, [facility] [place] [facility] [address] [id number] [place] [address] Nov, [facility] [place] [facility] [address] [id number] [place] [address] Nov, [facility] [place] [facility] [address] [id number] [place] [address] Nov, [facility] [place] [facility] [address] [id number] [place] [address] Oct, [facility] [place] [facility] [address] [id number] [place] [address] Oct, [facility] [place] [facility] [address] [id number] [place] [address] Oct, [facility] [place] [facility] [address] [id number] [place] [address] Oct, [facility] [place] [facility] [address] [id number], [place] [address] Oct, [facility] [place] [facility] [address] [id number] [place] [address] Sep, [facility] [place] [facility] [address] [id number] [place] [address] Sep, [facility] [place] [facility] [address] [id number] [place] [address] Sep, [facility] [place] [facility] [address] [id number] [place] [address] 07 Sep, 2011 [facility] [address] [id number] [place] [address] Sep, [facility] [place] [facility] [address] [id number] [place] [address] August, [facility] [address] [id number] [place] [address] August, [facility] [place] [facility] [address] [id number] [place] [address] August, [facility] [address] [id number] [place] [address] August, [facility] [address] [id number] [place] [address] Jul, [facility] [address] [id number] [place] [address] Jul, [facility] [place] [facility] [address] [id number] [place] [address] Jul, [facility] [place] [facility] [address] [id number] [place] [address] Jul, [facility] [address] [id number] [place] [address] Jul, [facility] [place] [facility] [address] [id number] [place] [address] 12 Jul, 2011 [facility] [place] [facility] [address] [id number] [place] [address] 11 Jul, 2011 [facility] [place] [facility] [address] [id number] [place] [address] 10 Jul, 2011 [facility] [place] [facility] [address] [id number] [place] [address] 09 Jul, 2011 [facility] [place] [facility] [address] [id number] [place] [address] Jul, [facility] [place] [facility] [address] [id number] [place] [address] 05 Jul, 2011 [facility] [place] [facility] [address] [id number] [place] [address] Jul, [facility] [place] [facility] [address] [id number] [place] [address] Jul, [facility] [place] [facility] [address] [id number] [place] [address] Jul, [facility] [address] [id number] [place] [address] Jun, [facility] [place] [facility] [address] [id number] [place] [address] Jun, [facility] [address] [id number] [place] [address] Jun, [facility] [address] [id number] [place] [address] Jun, [facility] [place] [facility] [address] [id number] [place] [address] May, [facility] [facility] [address] [id number] [place] [address] May, [facility] [place] [facility] [address] [id number] [place] [address] May, [facility] [place] [facility] [address] [id number] [place] [address] Apr, [facility] [place] [facility] [address] [id number] [place] [address] Apr, [facility] [place] [facility] [address] [id number] [place] [address] Apr, [facility] [place] [facility] [address] [id number] [place] [address] Apr, [facility] [place] [facility] [address] [id number], [place] [address] Apr, [facility] [place] [facility] [address] [id number] [place] [address] Mar, [facility] [place] [facility] [address] [id number] [place] [address] Mar, [facility] [place] [facility] [address] [id number] [place] [address] Mar, [facility] [place] [facility] [address] [id number] [place] [address] Mar, [facility] [place] [facility] [address] [id number] [place] [address] Mar, [facility] [place] [facility] [address] [id number] [place] [address] Mar, [facility] [place] [facility] [address] [facility] [id number] [place] [address] Mar, [facility] [place] [facility] [address] [id number] [place] [address] Feb, [facility] [place] [facility] [address] [facility] [id number] [place] [address] Feb, [facility] [place] [facility] [address] [facility] [id number] [place] [address] Feb, [facility] [place] [facility] [address] [id number] [place] [address] Feb, [facility] [place] [facility] [address] [id number], [place] [address] 16 Feb, 2011 [facility] [place] [facility] [address] [id number] [place] [address] 14 Feb, 2011 [facility] [place] [facility] [address] [facility] [id number] [place] [address] 10 Feb, 2011 [facility] [place] [facility] [address] [facility] [id number] [place] [address] 31 Jan, 2011 [facility] [place] [facility] [address] [id number] [place] [address] 31 Jan, 2011 [facility] [place] [facility] [address] [id number] [place] [address] 31 Jan, 2011 [facility] [place] [facility] [address] [id number] [place] [address] 18 Jan, 2011 [facility] [place] [facility] [address] [id number] [place] [address] 17 Jan, 2011 [facility] [place] [facility] [address] [id number] [place] [address] 17 Jan, 2011 [facility] [place] [facility] [address] [id number] [place] [address] 17 Jun, 2010 [facility] [place] [facility] [address] [id number] [place] [address] 30 Mar, 2010 [facility] [place] [facility] [address] [id number] [place] [address] 20 Mar, 2010 [facility] [place] [facility] [address] [id number] [place] [address] 14 Mar, 2010 [facility] [place] [facility] [address] [id number] [place] [address] 14 Mar, 2010 [facility] [place] [facility] [address] [id number] [place] [address] 13 Mar, 2010 [facility] [place] [facility] [address] [id number] [place] [address] 07 Mar, 2010 [facility] [place] [facility] [address] [id number] [place] [address] 02 Mar, 2010 [facility] [place] [facility] [address] [id number] [place] [address] Mar, [facility] [place] [facility] [address] [id number] [place] [address] 30 Feb, 2010 [facility] [place] [facility] [address] [id number] [place] [address] 29 Feb, 2010 [facility] [place] [facility] [address] [id number] [place] [address] 17 Feb, 2010 [facility] [place] [facility] [address] [id number] [place] [address] 17 Feb, 2010 [facility] [place] [facility] [address] [id number] [place] [address] 16 Feb, 2010 [facility] [place] [facility] [address] [id number] [place] [address] 08 Feb, 2010 [facility] [place] [facility] [address] [id number] [place] [address] 04 Feb, 2010 [facility] [place] [facility] [address] [id number] [place] [address] Feb, [facility] [place] [facility] [address] [id number] [place] [address] 28 Jan, 2010 [facility] [place] [facility] [address] [id number], [place] [address] 26 Jan, 2010 [facility] [place] [facility] [address] [id number] [place] [address] 25 Jan, 2010 [facility] [place] [facility] [address] [id number], [place] [address] 18 Jan, 2010 [facility] [place] [facility] [address] [id number], [place] [address] 29 Mar, 2009 [facility] [place] [facility] [address] [id number], [place] [address] 22 Mar, 2009 [facility] [place] [facility] [address] [id number] [place] [address] 19 Mar, 2009 [facility] [place] [facility] [address] [id number], [place] [address] 19 Mar, 2009 [facility] [place] [facility] [address] [id number], [place] [address] 14 Mar, 2009 [facility] [place] [facility] [address] [facility] [id number] [place] [address] Mar, [facility] [address] [id number], [place] [address] Feb, [facility] [address] [id number], [place] [address] Feb, [facility] [address] [facility] [id number], [place] [address] Jan, [facility] [address] [id number], [place] [address] Sep, [facility] [address] [facility] [id number], [place] [address] May, IMMUNIZATIONS No Known Immunizations SOCIAL HISTORY Never Assessed REASON FOR VISIT controlled 06/25 PLAN OF CARE VITAL SIGNS MEDICATIONS Medication Instructions Dosage Frequency Start Date End Date Duration Status Xanax 2 MG Orally 4 times a day 1/2 tablet 6h Dec, 28 days Active [employer] 10-325 MG Orally every 6 hrs 1 tablet as needed 6h Jun, 28 days Active Alprazolam 2 MG Orally 4 times a day as needed take 0.5 tablet 28 days Active RESULTS No Results PROCEDURES [...] Surgical History Left ear surgery Hospitalization History [facility]- Spontaneous Pneumothorax Hospitalization History [facility]- Colon resection Hospitalization History [facility] - diarrhea/ couldnt urinate nov 2017
--- OUTSIDE RECORDS SUMMARY | 2018-10-15 01:11 | XMS REPORT ---
Author Author Migration, Doctor Organization [facility] Address Unknown Phone Unavailable Care Team Providers Care Gang Supervisor Pipe Lines Name Role Phone Migration, Doctor Unavailable Unavailable PROBLEMS Type Condition ICD9-CM Code OVV32-ML Code Onset Dates Condition Status SNOMED Code Problem Constipation K59.00 Active 13080343 Problem Chronic pain G89.29 Active 16232279 Problem Hyperlipidemia E78.5 Active 25346179 Problem Insomnia G47.00 Active 812933717 Problem Chronic kidney disease, stage III (moderate) N18.3 Active 038155305 Problem Anxiety F41.9 Active 27656128 Problem Vision loss H54.7 Active 188482268 Problem HTN (hypertension) I10 Active 87580358 Problem Thoracic back pain, unspecified back pain laterality, unspecified chronicity M54.6 Active 436709772 Problem Vitamin D deficiency E55.9 Active 48631032 Problem Environmental allergies Z91.09 Active 895985394 Problem Primary insomnia F51.01 Active 6698176 ALLERGIES No Information ENCOUNTERS Encounter Location Date Diagnosis [facility] [id number] [place] [address] Jul, Thoracic back pain, unspecified back pain laterality, unspecified chronicity M54.6 [facility] [id number] [place] [address] Jun, Anxiety F41.9 and Thoracic back pain, unspecified back pain laterality, unspecified chronicity M54.6 [facility] [id number] [place] [address] Jun, Anxiety F41.9 and Thoracic back pain, unspecified back pain laterality, unspecified chronicity M54.6 [facility] [id number] [place] [address] Jun, Thoracic back pain, unspecified back pain laterality, unspecified chronicity M54.6 [facility] [id number] [place] [address] Jun, Anxiety F41.9 and Thoracic back pain, unspecified back pain laterality, unspecified chronicity M54.6 [facility] [id number] [place] [address] May, [facility] [id number] [place] [address] May, [facility] [address] [address] May, [facility] [address] [address] May, Anxiety F41.9 and Encounter for medication monitoring Z51.81 [facility] [id number] [place] [address] May, Anxiety F41.9 and Thoracic back pain, unspecified back pain laterality, unspecified chronicity M54.6 [facility] [id number] [place] [address] Apr, Hyperlipidemia 272.4 [facility] [address] [address] Apr, Chronic pain G89.29 ; Anxiety F41.9 ; Cervical radiculopathy M54.12 and Vision loss H54.7 [facility] [id number] [place] [address] Apr, [facility] [id number] [place] [address] Apr, Anxiety F41.9 and Thoracic back pain, unspecified back pain laterality, unspecified chronicity M54.6 [facility] [id number] [place] [address] Mar, [facility] [id number] [place] [address] Mar, Anxiety F41.9 and Thoracic back pain, unspecified back pain laterality, unspecified chronicity M54.6 [facility] [id number] [place] [address] 14 Feb, 2018 Anxiety F41.9 and Thoracic back pain, unspecified back pain laterality, unspecified chronicity M54.6 [facility] [id number] [place] [address] 07 Feb, 2018 Thoracic back pain, unspecified back pain laterality, unspecified chronicity M54.6 [facility] [id number] [place] [address] 29 Jan, 2018 [facility] [id number] [place] [address] 16 Jan, 2018 Anxiety F41.9 and Thoracic back pain, unspecified back pain laterality, unspecified chronicity M54.6 [facility] [id number] [place] [address] 19 Dec, 2017 Diarrhea of presumed infectious origin R19.7 [facility] [id number] [place] [address] 19 Dec, 2017 Diarrhea of presumed infectious origin R19.7 [facility] [id number] [place] [address] 18 Dec, 2017 Thoracic back pain, unspecified back pain laterality, unspecified chronicity M54.6 [facility] [id number] [place] [address] 17 Dec, 2017 [facility] [id number] [place] [address] 17 Dec, 2017 Anxiety F41.9 and Thoracic back pain, unspecified back pain laterality, unspecified chronicity M54.6 [facility] [address] [place] [address] 13 Dec, 2017 Diarrhea of presumed infectious origin R19.7 [facility] [id number] [place] [address] 13 Dec, 2017 [facility] [address] [address] Dec, Anxiety F41.9 and Thoracic back pain, unspecified back pain laterality, unspecified chronicity M54.6 [facility] [address] [address] Dec, Anxiety F41.9 and Thoracic back pain, unspecified back pain laterality, unspecified chronicity M54.6 [facility] [employer] [address] [place] [id number] Dec, Diarrhea of presumed infectious origin R19.7 ; Anxiety F41.9 ; Thoracic back pain, unspecified back pain laterality, unspecified chronicity M54.6 and HTN (hypertension) I10 [facility] [id number] [place] [address] Dec, Anxiety F41.9 [facility] [address] [place] [id number] Dec, Anxiety F41.9 ; Diarrhea of presumed infectious origin R19.7 ; Generalized abdominal pain R10.84 and Localized edema R60.0 [facility] [id number] [place] [address] Nov, [facility] [employer] [address] [place] [id number] Nov, Anxiety F41.9 ; Urinary retention R33.9 ; Diarrhea of presumed infectious origin R19.7 ; Weakness R53.1 ; Acute kidney failure, unspecified N17.9 ; Chronic kidney disease, stage III (moderate) N18.3 and Thoracic back pain, unspecified back pain laterality, unspecified chronicity M54.6 [facility] [id number] [place] [address] Oct, Thoracic back pain, unspecified back pain laterality, unspecified chronicity M54.6 and Anxiety F41.9 [facility] [address] [place] [address] Sep, Thoracic back pain, unspecified back pain laterality, unspecified chronicity M54.6 and Anxiety F41.9 [facility] [id number] [place] [address] Sep, Thoracic back pain, unspecified back pain laterality, unspecified chronicity M54.6 ; Anxiety F41.9 and Encounter for medication monitoring Z51.81 [facility] [id number] [place] [address] August, [facility] [address] [address] August, Thoracic back pain, unspecified back pain laterality, unspecified chronicity M54.6 and Anxiety F41.9 [facility] [id number] [place] [address] August, Hyperlipidemia E78.5 and HTN (hypertension) I10 [facility] [id number] [place] [address] August, [facility] [id number] [place] [address] August, Medicare welcome exam Z00.00 ; Chronic kidney failure N18.9 ; Anxiety F41.9 ; Chronic pain G89.29 ; Insomnia G47.00 ; Hyperlipidemia E78.5 ; HTN (hypertension) I10 and Thoracic back pain, unspecified back pain laterality, unspecified chronicity M54.6 [facility] [id number] [place] [address] Jul, [facility] [id number] [place] [address] Jul, [facility] [id number] [place] [address] Jul, [facility] [id number] [place] [address] Jul, Anxiety F41.9 [facility] [id number] [place] [address] Jul, Thoracic back pain, unspecified back pain laterality, unspecified chronicity M54.6 and Anxiety F41.9 [facility] [id number] [place] [address] Jun, Thoracic back pain, unspecified back pain laterality, unspecified chronicity M54.6 and Anxiety F41.9 [facility] [address] [address] May, Thoracic back pain, unspecified back pain laterality, unspecified chronicity M54.6 and Anxiety F41.9 [facility] [address] [address] Apr, Thoracic back pain, unspecified back pain laterality, unspecified chronicity M54.6 and Anxiety F41.9 [facility] [address] [address] Mar, [facility] [address] [address] Mar, Thoracic back pain, unspecified back pain laterality, unspecified chronicity M54.6 and Anxiety F41.9 [facility] [address] [address] Mar, Thoracic back pain, unspecified back pain laterality, unspecified chronicity M54.6 ; HTN (hypertension) I10 ; Hyperlipidemia E78.5 and Anxiety F41.9 [facility] [address] [address] Feb, Thoracic back pain, unspecified back pain laterality, unspecified chronicity M54.6 and Anxiety F41.9 [facility] [address] [address] Nov, [facility] [id number] [place] [address] Oct, [facility] [address] [address] Oct, Thoracic back pain, unspecified back pain laterality, unspecified chronicity M54.6 [facility] [id number] [place] [address] Oct, HTN (hypertension) I10 ; Constipation K59.00 ; Hyperlipidemia E78.5 ; Thoracic back pain, unspecified back pain laterality, unspecified chronicity M54.6 ; Chronic pain G89.29 ; Anxiety F41.9 ; Chronic kidney failure N18.9 ; Environmental allergies Z91.09 ; Vitamin D deficiency E55.9 and Primary insomnia F51.01 [facility] [id number] [place] [address] Sep, Anxiety F41.9 [facility] [id number] [place] [address] Sep, [facility] [address] [address] August, Anxiety F41.9 [facility] [id number] [place] [address] August, [facility] [id number] [place] [address] Jul, Anxiety F41.9 [facility] [id number] [place] [address] Jul, [facility] [id number] [place] [address] Jun, Anxiety F41.9 [facility] [id number] [place] [address] Jun, [facility] [id number] [place] [address] May, [facility] [id number] [place] [address] May, [facility] [address] [place] [address] May, [facility] [address] [address] Apr, [facility] [address] [place] [address] Apr, [facility] [address] [place] [address] Apr, Anxiety F41.9 [facility] [id number] [place] [address] Apr, Anxiety F41.9 [facility] [id number] [place] [address] Apr, [facility] [id number] [place] [address] Mar, HTN (hypertension) I10 ; Tremor R25.1 ; Hypercholesterolemia E78.0 ; Constipation K59.00 ; Chronic pain G89.29 ; Hyperlipidemia E78.5 ; Insomnia G47.00 ; Anxiety F41.9 and Thoracic back pain, unspecified back pain laterality, unspecified chronicity M54.6 [facility] [address] [place] [address] Mar, Tremor R25.1 ; HTN (hypertension) I10 ; Hypercholesterolemia E78.0 ; Constipation K59.00 ; Chronic pain G89.29 ; Hyperlipidemia E78.5 ; Insomnia G47.00 ; Anxiety F41.9 and Thoracic back pain, unspecified back pain laterality, unspecified chronicity M54.6 [facility] [address] [address] Mar, [facility] [id number] [place] [address] Mar, [facility] [address], [place] [address] Feb, [facility] [address] [address] 13 Jan, 2016 [facility] [id number] [place] [address] 10 Jan, 2016 [facility] [address] [place] [address] 15 Dec, 2015 [facility] [id number] [place] [address] Nov, [facility] [id number] [place] [address] Nov, [facility] [id number] [place] [address] Oct, Anxiety F41.9 [facility] [id number] [place] [address] Oct, Chronic pain G89.29 [facility] [id number] [place] [address] Sep, [facility] [id number] [place] [address] Sep, [facility] [id number] [place] [address] Sep, [facility] [address] [place] [address] Sep, [facility] [address] [place] [address] Sep, Chronic pain syndrome G89.4 [facility] [address] [place] [address] 15 Sep, 2015 HTN (hypertension) I10 ; Chronic pain G89.29 ; Hypercholesterolemia E78.0 ; Chronic kidney failure N18.9 ; Constipation, unspecified constipation type K59.00 ; Anxiety F41.9 and Thoracic back pain, unspecified back pain laterality, unspecified chronicity M54.6 [facility] [id number] [place] [address] August, Chronic pain syndrome G89.4 [facility] [id number] [place] [address] August, Chronic pain syndrome G89.4 [facility] [id number] [place] [address] Jul, Anxiety disorder, unspecified F41.9 and Chronic pain syndrome G89.4 [facility] [id number] [place] [address] Jul, Insomnia, unspecified G47.00 and Chronic pain syndrome G89.4 [facility] [id number] [place] [address] Jul, Allergic rhinitis J30.9 [facility] [id number] [place] [address] Jul, Constipation, unspecified K59.00 [facility] [id number] [place] [address] Jul, [facility] [id number] [place] [address] Jun, [facility] [id number] [place] [address] Jun, [facility] [address], [place] [address] Jun, [facility] [address] [address] Jun, [facility] [address] [place] [address] Jun, [facility] [id number] [place] [address] Jun, [facility] [address], [place] [address] May, [facility] [id number] [place] [address] May, [facility] [address] [place] [address] May, Anxiety F41.9 ; Insomnia G47.00 ; Hyperlipidemia E78.5 ; Chronic pain G89.29 ; HTN (hypertension) I10 ; Environmental allergies V15.09 and Constipation 564.00 [facility] [id number] [place] [address] Apr, [facility] [id number] [place] [address] Apr, [facility] [id number] [place] [address] Apr, [facility] [id number] [place] [address] Mar, [facility] [id number] [place] [address] Mar, [facility] [id number] [place] [address] Mar, [facility] [id number] [place] [address] Feb, [facility] [id number] [place] [address] Feb, [facility] [id number] [place] [address] Feb, [facility] [address] [place] [address] Jan, HTN (hypertension) I10 ; Constipation K59.00 ; Chronic pain G89.29 ; Hyperlipidemia E78.5 ; Hypercholesterolemia E78.0 ; Insomnia G47.00 and Anxiety F41.9 [facility] [id number] [place] [address] Jan, [facility] [address], [place] [address] Dec, [facility] [address], [place] [address] Nov, [facility] [address], [place] [address] Oct, Chronic kidney disease, unspecified 585.9 ; Chronic pain syndrome 338.4 ; Hyperlipidemia 272.4 and Essential hypertension 401.9 [facility] [address], [place] [address] Oct, Chronic kidney disease 585.9 [facility] [id number] [place] [address] Oct, [facility] [id number] [place] [address] Oct, Chronic kidney disease, unspecified 585.9 ; Hypercalcemia 275.42 ; Hyperlipidemia 272.4 ; Essential hypertension 401.9 ; Chronic pain syndrome 338.4 ; Insomnia 780.52 ; Constipation 564.00 ; Environmental allergies V15.09 and Anxiety 300.00 [facility] [address], [place] [address] Oct, Chronic kidney disease 585.9 [facility] [address], [place] [address] Oct, [facility] [address], [place] [address] Oct, Chronic kidney disease 585.9 and Hyperlipidemia 272.4 [facility] [address], [place] [address] Oct, [facility] [address], [place] [address] Oct, [facility] [address], [place] [address] Sep, [facility] [address] [facility] [id number] [place] [address] 15 Sep, 2014 [facility] [address] [id number], [place] [address] Sep, Chronic kidney disease 585.9 and Hyperlipidemia 272.4 [facility] [place] [facility] [address] [id number] [place] [address] Sep, [facility] [address] [id number] [place] [address] August, [facility] [address] [id number] [place] [address] August, [facility] [address] [id number] [place] [address] Jul, [facility] [address] [facility] [id number] [place] [address] Jul, [facility] [address] [facility] [id number], [place] [address] Jun, [facility] [place] [facility] [address] [id number] [place] [address] Jun, [facility] [address] [facility] [id number], [place] [address] Jun, [facility] [place] [facility] [address] [facility] [id number], [place] [address] Jun, [facility] [place] [facility] [address] [id number], [place] [address] Jun, [facility] [place] [facility] [address] [facility] [id number] [place] [address] Jun, [facility] [place] [facility] [address] [id number], [place] [address] Jun, [facility] [place] [facility] [address] [facility] [id number], [place] [address] Jun, [facility] [place] [facility] [address] [id number] [place] [address] 16 May, 2014 [facility] [place] [facility] [address] [id number] [place] [address] May, [facility] [place] [facility] [address] [id number] [place] [address] May, [facility] [place] [facility] [address] [id number] [place] [address] May, [facility] [place] [facility] [address] [id number] [place] [address] Apr, [facility] [place] [facility] [address] [id number] [place] [address] Apr, [facility] [place] [facility] [address] [id number] [place] [address] Apr, [facility] [place] [facility] [address] [id number] [place] [address] Apr, [facility] [place] [facility] [address] [id number] [place] [address] Apr, [facility] [place] [facility] [address] [id number] [place] [address] Apr, [facility] [place] [facility] [address] [id number] [place] [address] Apr, [facility] [place] [facility] [address] [id number] [place] [address] Apr, [facility] [place] [facility] [address] [id number] [place] [address] Apr, [facility] [place] [facility] [address] [id number] [place] [address] Apr, [facility] [place] [facility] [address] [id number] [place] [address] Apr, [facility] [place] [facility] [address] [id number] [place] [address] Mar, [facility] [place] [facility] [address] [id number] [place] [address] Mar, [facility] [place] [facility] [address] [id number] [place] [address] Feb, [facility] [place] [facility] [address] [id number] [place] [address] Feb, [facility] [place] [facility] [address] [id number] [place] [address] Feb, [facility] [place] [facility] [address] [id number] [place] [address] Feb, [facility] [place] [facility] [address] [id number] [place] [address] Feb, [facility] [place] [facility] [address] [id number] [place] [address] Feb, [facility] [place] [facility] [address] [id number] [place] [address] Feb, [facility] [place] [facility] [address] [id number] [place] [address] Feb, [facility] [place] [facility] [address] [id number] [place] [address] Feb, [facility] [place] [facility] [address] [id number] [place] [address] Feb, [facility] [place] [facility] [address] [id number], [place] [address] Jan, [facility] [place] [facility] [address] [id number] [place] [address] Jan, [facility] [place] [facility] [address] [id number] [place] [address] Jan, [facility] [place] [facility] [address] [id number], [place] [address] Jan, [facility] [place] [facility] [address] [id number], [place] [address] Jan, [facility] [place] [facility] [address] [id number] [place] [address] 24 Jan, 2014 [facility] [place] [facility] [address] [id number] [place] [address] Jan, [facility] [place] [facility] [address] [id number] [place] [address] Jan, [facility] [place] [facility] [address] [id number] [place] [address] 16 Jan, 2014 [facility] [place] [facility] [address] [id number] [place] [address] Jan, [facility] [place] [facility] [address] [id number] [place] [address] Jan, [facility] [place] [facility] [address] [id number] [place] [address] 26 Dec, 2013 [facility] [place] [facility] [address] [id number] [place] [address] 26 Dec, 2013 [facility] [place] [facility] [address] [id number] [place] [address] 19 Dec, 2013 [facility] [place] [facility] [address] [id number] [place] [address] 19 Dec, 2013 [facility] [place] [facility] [address] [id number] [place] [address] 18 Dec, 2013 [facility] [place] [facility] [address] [id number], [place] [address] 18 Dec, 2013 [facility] [place] [facility] [address] [id number] [place] [address] 03 Dec, 2013 [facility] [place] [facility] [address] [id number] [place] [address] 03 Dec, 2013 [facility] [place] [facility] [address] [id number] [place] [address] 20 Nov, 2013 [facility] [place] [facility] [address] [id number] [place] [address] Nov, [facility] [place] [facility] [address] [id number] [place] [address] Nov, [facility] [place] [facility] [address] [id number] [place] [address] Nov, [facility] [place] [facility] [address] [id number] [place] [address] Nov, [facility] [place] [facility] [address] [id number] [place] [address] Nov, [facility] [place] [facility] [address] [id number] [place] [address] Nov, [facility] [place] [facility] [address] [id number] [place] [address] Nov, [facility] [place] [facility] [address] [id number] [place] [address] Oct, [facility] [place] [facility] [address] [id number] [place] [address] Oct, [facility] [place] [facility] [address] [id number] [place] [address] Oct, [facility] [place] [facility] [address] [id number] [place] [address] Oct, [facility] [place] [facility] [address] [id number] [place] [address] Sep, [facility] [place] [facility] [address] [id number] [place] [address] Sep, [facility] [place] [facility] [address] [id number] [place] [address] Sep, [facility] [place] [facility] [address] [id number] [place] [address] Sep, [facility] [place] [facility] [address] [id number] [place] [address] Sep, [facility] [place] [facility] [address] [id number] [place] [address] Sep, [facility] [place] [facility] [address] [id number] [place] [address] Sep, [facility] [place] [facility] [address] [id number] [place] [address] Sep, [facility] [place] [facility] [address] [id number] [place] [address] August, [facility] [place] [facility] [address] [id number] [place] [address] August, [facility] [place] [facility] [address] [id number] [place] [address] August, [facility] [place] [facility] [address] [id number] [place] [address] August, [facility] [place] [facility] [address] [id number] [place] [address] August, [facility] [place] [facility] [address] [id number] [place] [address] August, [facility] [place] [facility] [address] [id number] [place] [address] August, [facility] [place] [facility] [address] [id number] [place] [address] August, [facility] [place] [facility] [address] [id number] [place] [address] August, [facility] [place] [facility] [address] [id number] [place] [address] August, [facility] [place] [facility] [address] [id number] [place] [address] Jul, [facility] [place] [facility] [address] [id number] [place] [address] Jul, [facility] [place] [facility] [address] [id number] [place] [address] Jul, [facility] [place] [facility] [address] [id number] [place] [address] Jul, [facility] [place] [facility] [address] [id number] [place] [address] Jul, [facility] [place] [facility] [address] [id number] [place] [address] Jul, [facility] [place] [facility] [address] [id number] [place] [address] Jul, [facility] [place] [facility] [address] [id number] [place] [address] Jul, [facility] [place] [facility] [address] [id number] [place] [address] Jun, [facility] [place] [facility] [address] [id number] [place] [address] Jun, [facility] [place] [facility] [address] [id number] [place] [address] Jun, [facility] [place] [facility] [address] [id number] [place] [address] Jun, [facility] [place] [facility] [address] [facility] [id number] [place] [address] Jun, [facility] [place] [facility] [address] [id number] [place] [address] Jun, [facility] [place] [facility] [address] [id number] [place] [address] May, [facility] [place] [facility] [address] [id number] [place] [address] May, [facility] [place] [facility] [address] [id number] [place] [address] May, [facility] [place] [facility] [address] [id number] [place] [address] May, [facility] [place] [facility] [address] [id number] [place] [address] May, [facility] [place] [facility] [address] [id number] [place] [address] May, [facility] [place] [facility] [address] [id number] [place] [address] May, [facility] [place] [facility] [address] [id number] [place] [address] Apr, [facility] [place] [facility] [address] [id number] [place] [address] Apr, [facility] [place] [facility] [address] [id number] [place] [address] Apr, [facility] [place] [facility] [address] [id number] [place] [address] Apr, [facility] [place] [facility] [address] [id number] [place] [address] Apr, [facility] [place] [facility] [address] [id number] [place] [address] Apr, [facility] [place] [facility] [address] [id number] [place] [address] Mar, [facility] [place] [facility] [address] [id number] [place] [address] Mar, [facility] [place] [facility] [address] [id number] [place] [address] Mar, [facility] [place] [facility] [address] [id number] [place] [address] Mar, [facility] [place] [facility] [address] [id number] [place] [address] Mar, [facility] [place] [facility] [address] [id number] [place] [address] Mar, [facility] [place] [facility] [address] [id number], [place] [address] 16 Mar, 2013 [facility] [address] [id number] [place] [address] 16 Mar, 2013 [facility] [place] [facility] [address] [id number], [place] [address] Mar, [facility] [address] [id number] [place] [address] Mar, [facility] [place] [facility] [address] [id number] [place] [address] Feb, [facility] [place] [facility] [address] [id number] [place] [address] Feb, [facility] [place] [facility] [address] [id number] [place] [address] Feb, [facility] [address] [id number], [place] [address] Feb, [facility] [place] [facility] [address] [id number], [place] [address] Feb, [facility] [address] [id number] [place] [address] 14 Feb, 2013 [facility] [place] [facility] [address] [facility] [id number], [place] [address] Feb, [facility] [place] [facility] [address] [id number], [place] [address] Feb, [facility] [place] [facility] [address] [id number], [place] [address] Feb, [facility] [place] [facility] [address] [id number], [place] [address] Feb, [facility] [place] [facility] [address] [id number], [place] [address] Jan, [facility] [place] [facility] [address] [id number], [place] [address] Jan, [facility] [place] [facility] [address] [id number] [place] [address] Jan, [facility] [place] [facility] [address] [id number] [place] [address] Jan, [facility] [place] [facility] [address] [id number] [place] [address] Jan, [facility] [place] [facility] [address] [id number] [place] [address] Jan, [facility] [place] [facility] [address] [id number] [place] [address] Jan, [facility] [place] [facility] [address] [id number] [place] [address] Jan, [facility] [place] [facility] [address] [id number] [place] [address] Jan, [facility] [place] [facility] [address] [id number] [place] [address] 25 Dec, 2012 [facility] [place] [facility] [address] [id number] [place] [address] Dec, [facility] [place] [facility] [address] [id number] [place] [address] Dec, [facility] [place] [facility] [address] [id number] [place] [address] Dec, [facility] [place] [facility] [address] [id number] [place] [address] Nov, [facility] [place] [facility] [address] [id number] [place] [address] Nov, [facility] [place] [facility] [address] [id number] [place] [address] Nov, [facility] [place] [facility] [address] [id number] [place] [address] Nov, [facility] [place] [facility] [address] [id number] [place] [address] Nov, [facility] [address] [id number] [place] [address] Nov, [facility] [place] [facility] [address] [id number] [place] [address] Oct, [facility] [place] [facility] [address] [id number] [place] [address] Oct, [facility] [place] [facility] [address] [id number] [place] [address] Oct, [facility] [address] [id number] [place] [address] Oct, [facility] [place] [facility] [address] [id number] [place] [address] Sep, [facility] [place] [facility] [address] [id number] [place] [address] Sep, [facility] [place] [facility] [address] [id number] [place] [address] Sep, [facility] [place] [facility] [address] [id number] [place] [address] Sep, [facility] [place] [facility] [address] [id number] [place] [address] Sep, [facility] [place] [facility] [address] [id number], [place] [address] August, [facility] [place] [facility] [address] [id number], [place] [address] August, [facility] [place] [facility] [address] [id number] [place] [address] Jul, [facility] [place] [facility] [address] [id number] [place] [address] Jul, [facility] [place] [facility] [address] [id number] [place] [address] 15 Jul, 2012 [facility] [place] [facility] [address] [id number] [place] [address] 09 Jul, 2012 [facility] [address] [id number] [place] [address] 08 Jul, 2012 [facility] [place] [facility] [address] [id number] [place] [address] 26 Jun, 2012 [facility] [place] [facility] [address] [id number] [place] [address] 20 Jun, 2012 [facility] [place] [facility] [address] [id number] [place] [address] 15 Jun, 2012 [facility] [address] [id number] [place] [address] 06 Jun, 2012 [facility] [place] [facility] [address] [facility] [id number] [place] [address] Jun, [facility] [place] [facility] [address] [id number] [place] [address] 28 May, 2012 [facility] [address] [facility] [id number] [place] [address] 27 May, 2012 [facility] [place] [facility] [id number] [place] [address] 25 May, 2012 [facility] [address] [id number] [place] [address] 21 May, 2012 [facility] [place] [facility] [address] [facility] [id number] [place] [address] 20 May, 2012 [facility] [place] [facility] [address] [facility] [id number] [place] [address] 14 May, 2012 [facility] [place] [facility] [address] [facility] [id number] [place] [address] 13 May, 2012 [facility] [place] [facility] [address] [facility] [id number], [place] [address] 08 May, 2012 [facility] [place] [facility] [address] [id number], [place] [address] May, [facility] [address] [id number] [place] [address] Apr, [facility] [place] [facility] [address] [id number] [place] [address] Apr, [facility] [address] [id number] [place] [address] Apr, [facility] [place] [facility] [address] [id number] [place] [address] Apr, [facility] [address] [id number] [place] [address] Apr, [facility] [address] [id number] [place] [address] Mar, [facility] [address] [id number] [place] [address] Mar, [facility] [place] [facility] [address] [id number] [place] [address] Mar, [facility] [address] [id number] [place] [address] Mar, [facility] [place] [facility] [address] [id number] [place] [address] Mar, [facility] [place] [facility] [address] [id number], [place] [address] Mar, [facility] [place] [facility] [address] [id number], [place] [address] Mar, [facility] [place] [facility] [address] [id number] [place] [address] Mar, [facility] [place] [facility] [address] [id number] [place] [address] Mar, [facility] [place] [facility] [address] [id number] [place] [address] Mar, [facility] [place] [facility] [address] [id number] [place] [address] 30 Feb, 2012 [facility] [address] [id number] [place] [address] 30 Feb, 2012 [facility] [place] [facility] [address] [id number] [place] [address] Feb, [facility] [place] [facility] [address] [id number] [place] [address] Feb, [facility] [place] [facility] [address] [id number] [place] [address] Feb, [facility] [place] [facility] [address] [id number] [place] [address] Feb, [facility] [place] [facility] [address] [id number] [place] [address] Feb, [facility] [place] [facility] [address] [id number] [place] [address] Feb, [facility] [place] [facility] [address] [id number] [place] [address] 16 Feb, 2012 [facility] [place] [facility] [address] [id number] [place] [address] 16 Feb, 2012 [facility] [place] [facility] [address] [id number] [place] [address] Feb, [facility] [place] [facility] [address] [id number] [place] [address] Feb, [facility] [place] [facility] [address] [id number] [place] [address] Feb, [facility] [place] [facility] [address] [id number] [place] [address] Feb, [facility] [place] [facility] [address] [id number] [place] [address] Feb, [facility] [place] [facility] [address] [id number] [place] [address] Feb, [facility] [place] [facility] [address] [id number] [place] [address] Feb, [facility] [place] [facility] [address] [id number] [place] [address] Feb, [facility] [place] [facility] [address] [id number] [place] [address] Jan, [facility] [place] [facility] [address] [id number] [place] [address] Jan, [facility] [place] [facility] [address] [id number] [place] [address] Jan, [facility] [place] [facility] [address] [id number] [place] [address] Jan, [facility] [place] [facility] [address] [id number] [place] [address] Jan, [facility] [place] [facility] [address] [id number] [place] [address] Jan, [facility] [place] [facility] [address] [id number] [place] [address] Jan, [facility] [place] [facility] [address] [id number], [place] [address] Jan, [facility] [place] [facility] [address] [facility] [id number], [place] [address] Jan, [facility] [place] [facility] [address] [id number], [place] [address] Jan, [facility] [place] [facility] [address] [id number], [place] [address] 24 Dec, 2011 [facility] [place] [facility] [address] [id number], [place] [address] 18 Dec, 2011 [facility] [place] [facility] [address] [id number], [place] [address] 04 Dec, 2011 [facility] [place] [facility] [address] [id number], [place] [address] Dec, [facility] [place] [facility] [address] [id number] [place] [address] Nov, [facility] [place] [facility] [address] [id number] [place] [address] Nov, [facility] [place] [facility] [address] [id number] [place] [address] Nov, [facility] [place] [facility] [address] [id number] [place] [address] Nov, [facility] [place] [facility] [address] [id number] [place] [address] Nov, [facility] [place] [facility] [address] [id number] [place] [address] Nov, [facility] [place] [facility] [address] [id number] [place] [address] Oct, [facility] [place] [facility] [address] [id number] [place] [address] Oct, [facility] [place] [facility] [address] [id number] [place] [address] Oct, [facility] [place] [facility] [address] [id number] [place] [address] Oct, [facility] [place] [facility] [address] [id number] [place] [address] Oct, [facility] [place] [facility] [address] [id number] [place] [address] Sep, [facility] [place] [facility] [address] [id number] [place] [address] Sep, [facility] [place] [facility] [address] [id number] [place] [address] Sep, [facility] [place] [facility] [address] [id number] [place] [address] Sep, [facility] [place] [facility] [address] [id number] [place] [address] 05 Sep, 2011 [facility] [address] [id number] [place] [address] August, [facility] [place] [facility] [address] [id number] [place] [address] August, [facility] [address] [id number] [place] [address] August, [facility] [address] [id number] [place] [address] August, [facility] [address] [id number] [place] [address] Jul, [facility] [address] [id number] [place] [address] Jul, [facility] [address] [id number] [place] [address] Jul, [facility] [address] [id number] [place] [address] Jul, [facility] [address] [id number] [place] [address] Jul, [facility] [address] [id number] [place] [address] Jul, [facility] [place] [facility] [address] [id number] [place] [address] Jul, [facility] [place] [facility] [address] [id number] [place] [address] 10 Jul, 2011 [facility] [place] [facility] [address] [id number] [place] [address] 09 Jul, 2011 [facility] [place] [facility] [address] [id number] [place] [address] Jul, [facility] [place] [facility] [address] [id number] [place] [address] Jul, [facility] [address] [id number] [place] [address] Jul, [facility] [place] [facility] [address] [id number] [place] [address] Jul, [facility] [place] [facility] [address] [id number] [place] [address] Jul, [facility] [place] [facility] [address] [id number] [place] [address] Jun, [facility] [place] [facility] [address] [id number] [place] [address] Jun, [facility] [place] [facility] [address] [id number] [place] [address] Jun, [facility] [place] [facility] [address] [id number] [place] [address] Jun, [facility] [place] [facility] [address] [id number] [place] [address] May, [facility] [place] [facility] [address] [id number] [place] [address] May, [facility] [place] [facility] [address] [id number] [place] [address] May, [facility] [place] [facility] [address] [id number] [place] [address] Apr, [facility] [place] [facility] [address] [id number] [place] [address] Apr, [facility] [place] [facility] [address] [id number] [place] [address] Apr, [facility] [place] [facility] [address] [id number] [place] [address] Apr, [facility] [place] [facility] [address] [id number] [place] [address] Apr, [facility] [place] [facility] [address] [id number] [place] [address] Mar, [facility] [place] [facility] [address] [id number] [place] [address] Mar, [facility] [place] [facility] [address] [id number] [place] [address] Mar, [facility] [place] [facility] [address] [id number] [place] [address] Mar, [facility] [place] [facility] [address] [id number] [place] [address] 16 Mar, 2011 [facility] [place] [facility] [address] [id number] [place] [address] Mar, [facility] [place] [facility] [address] [id number] [place] [address] Mar, [facility] [place] [facility] [address] [id number] [place] [address] Feb, [facility] [place] [facility] [address] [id number] [place] [address] Feb, [facility] [place] [facility] [address] [id number] [place] [address] Feb, [facility] [place] [facility] [address] [id number] [place] [address] Feb, [facility] [place] [facility] [address] [id number] [place] [address] 16 Feb, 2011 [facility] [place] [facility] [address] [id number] [place] [address] 14 Feb, 2011 [facility] [place] [facility] [address] [id number] [place] [address] 10 Feb, 2011 [facility] [place] [facility] [address] [id number] [place] [address] 31 Jan, 2011 [facility] [place] [facility] [address] [id number] [place] [address] 31 Jan, 2011 [facility] [place] [facility] [address] [id number] [place] [address] 31 Jan, 2011 [facility] [address] [id number] [place] [address] 18 Jan, 2011 [facility] [address] [id number] [place] [address] 17 Jan, 2011 [facility] [address] [id number] [place] [address] 17 Jan, 2011 [facility] [address] [id number] [place] [address] 17 Jun, 2010 [facility] [address] [id number] [place] [address] 30 Mar, 2010 [facility] [address] [id number] [place] [address] 20 Mar, 2010 [facility] [address] [id number] [place] [address] 14 Mar, 2010 [facility] [address] [id number] [place] [address] 14 Mar, 2010 [facility] [address] [id number] [place] [address] 13 Mar, 2010 [facility] [place] [facility] [address] [id number] [place] [address] 07 Mar, 2010 [facility] [place] [facility] [address] [id number] [place] [address] 02 Mar, 2010 [facility] [place] [facility] [address] [id number] [place] [address] Mar, [facility] [place] [facility] [address] [id number] [place] [address] 30 Feb, 2010 [facility] [place] [facility] [address] [id number] [place] [address] 29 Feb, 2010 [facility] [place] [facility] [address] [id number], [place] [address] 17 Feb, 2010 [facility] [place] [facility] [address] [id number] [place] [address] 17 Feb, 2010 [facility] [place] [facility] [address] [id number] [place] [address] 16 Feb, 2010 [facility] [place] [facility] [address] [id number] [place] [address] 08 Feb, 2010 [facility] [place] [facility] [address] [id number] [place] [address] 04 Feb, 2010 [facility] [place] [facility] [address] [id number] [place] [address] Feb, [facility] [place] [facility] [address] [id number] [place] [address] 28 Jan, 2010 [facility] [place] [facility] [address] [id number] [place] [address] Jan, [facility] [place] [facility] [address] [id number] [place] [address] Jan, [facility] [place] [facility] [address] [id number] [place] [address] 18 Jan, 2010 [facility] [place] [facility] [address] [id number] [place] [address] 29 Mar, 2009 [facility] [place] [facility] [address] [id number], [place] [address] 22 Mar, 2009 [facility] [place] [facility] [address] [id number], [place] [address] 19 Mar, 2009 [facility] [place] [facility] [address] [id number] [place] [address] 19 Mar, 2009 [facility] [place] [facility] [address] [id number] [place] [address] 14 Mar, 2009 [facility] [place] [facility] [address] [id number] [place] [address] 10 Mar, 2009 [facility] [place] [facility] [address] [facility] [id number] [place] [address] Feb, [facility] [address] [facility] [id number], [place] [address] Feb, [facility] [address] [id number], [place] [address] Jan, [facility] [address] [facility] [id number], [place] [address] Sep, [facility] [address] [facility] [id number], [place] [address] May, IMMUNIZATIONS No Known Immunizations SOCIAL HISTORY Never Assessed REASON FOR VISIT EMR-[facility] [place] PLAN OF CARE VITAL [...] Surgical History Left ear surgery Hospitalization History [facility]- Spontaneous Pneumothorax Hospitalization History [facility]- Colon resection Hospitalization History [facility] - diarrhea/ couldnt urinate nov 2017
--- OUTSIDE RECORDS SUMMARY | 2018-10-15 01:12 | XMS REPORT ---
Author Author Migration, Doctor Organization [facility] Address Unknown Phone Unavailable Care Team Providers Care Inventory Specialist Name Role Phone Migration, Doctor Unavailable Unavailable PROBLEMS Type Condition ICD9-CM Code QYE74-DA Code Onset Dates Condition Status SNOMED Code Problem Constipation K59.00 Active 55961218 Problem Chronic pain G89.29 Active 31387103 Problem Hyperlipidemia E78.5 Active 88040170 Problem Insomnia G47.00 Active 782080664 Problem Chronic kidney disease, stage III (moderate) N18.3 Active 727203624 Problem Anxiety F41.9 Active 03330289 Problem Vision loss H54.7 Active 969600807 Problem HTN (hypertension) I10 Active 09951969 Problem Thoracic back pain, unspecified back pain laterality, unspecified chronicity M54.6 Active 435944708 Problem Vitamin D deficiency E55.9 Active 66784648 Problem Environmental allergies Z91.09 Active 549832496 Problem Primary insomnia F51.01 Active 3272098 ALLERGIES No Information ENCOUNTERS Encounter Location Date Diagnosis [facility] [id number] [place] [address] Jul, Thoracic back pain, unspecified back pain laterality, unspecified chronicity M54.6 [facility] [id number] [place] [address] Jun, Anxiety F41.9 and Thoracic back pain, unspecified back pain laterality, unspecified chronicity M54.6 [facility] [id number] [place] [address] Jun, Anxiety F41.9 and Thoracic back pain, unspecified back pain laterality, unspecified chronicity M54.6 [facility] [id number] [place] [address] Jun, Thoracic back pain, unspecified back pain laterality, unspecified chronicity M54.6 [place] [place] [id number] [place] [address] Jun, Anxiety F41.9 and Thoracic back pain, unspecified back pain laterality, unspecified chronicity M54.6 [facility] [place] [id number] [place] [address] May, [facility] [place] [id number] [place] [address] May, [facility] [address] [address] May, [place] [place] [address] [address] May, Anxiety F41.9 and Encounter for medication monitoring Z51.81 [facility] [id number] [place] [address] May, Anxiety F41.9 and Thoracic back pain, unspecified back pain laterality, unspecified chronicity M54.6 [place] [place] [id number] [place] [address] Apr, Hyperlipidemia 272.4 [place] [place] [address] [address] Apr, Chronic pain G89.29 ; Anxiety F41.9 ; Cervical radiculopathy M54.12 and Vision loss H54.7 [facility] [place] [id number] [place] [address] Apr, [facility] [place] [id number] [place] [address] Apr, Anxiety F41.9 and Thoracic back pain, unspecified back pain laterality, unspecified chronicity M54.6 [place] [place] [id number] [place] [address] Mar, [place] [place] [id number] [place] [address] Mar, Anxiety F41.9 and Thoracic back pain, unspecified back pain laterality, unspecified chronicity M54.6 [facility] [id number] [place] [address] 14 Feb, 2018 Anxiety F41.9 and Thoracic back pain, unspecified back pain laterality, unspecified chronicity M54.6 [facility] [id number] [place] [address] 07 Feb, 2018 Thoracic back pain, unspecified back pain laterality, unspecified chronicity M54.6 [facility] [id number] [place] [address] 29 Jan, 2018 [facility] [id number] [place] [address] 16 Jan, 2018 Anxiety F41.9 and Thoracic back pain, unspecified back pain laterality, unspecified chronicity M54.6 [facility] [id number] [place] [address] 19 Dec, 2017 Diarrhea of presumed infectious origin R19.7 [facility] [id number] [place] [address] 19 Dec, 2017 Diarrhea of presumed infectious origin R19.7 [facility] [id number] [place] [address] 18 Dec, 2017 Thoracic back pain, unspecified back pain laterality, unspecified chronicity M54.6 [facility] [id number] [place] [address] 17 Dec, 2017 [facility] [id number] [place] [address] 17 Dec, 2017 Anxiety F41.9 and Thoracic back pain, unspecified back pain laterality, unspecified chronicity M54.6 [facility] [id number] [place] [address] 13 Dec, 2017 Diarrhea of presumed infectious origin R19.7 [facility] [id number] [place] [address] 13 Dec, 2017 [place] [place] [id number] [address] Dec, Anxiety F41.9 and Thoracic back pain, unspecified back pain laterality, unspecified chronicity M54.6 [facility] [place] [id number] [address] Dec, Anxiety F41.9 and Thoracic back pain, unspecified back pain laterality, unspecified chronicity M54.6 [facility] [employer] [address] [place] [id number] Dec, Diarrhea of presumed infectious origin R19.7 ; Anxiety F41.9 ; Thoracic back pain, unspecified back pain laterality, unspecified chronicity M54.6 and HTN (hypertension) I10 [facility] [place] [id number] [place] [address] Dec, Anxiety F41.9 [facility] [address] [place] [id number] Dec, Anxiety F41.9 ; Diarrhea of presumed infectious origin R19.7 ; Generalized abdominal pain R10.84 and Localized edema R60.0 [place] [place] [id number] [place] [address] Nov, [facility] [employer] [address] [place] [id number] Nov, Anxiety F41.9 ; Urinary retention R33.9 ; Diarrhea of presumed infectious origin R19.7 ; Weakness R53.1 ; Acute kidney failure, unspecified N17.9 ; Chronic kidney disease, stage III (moderate) N18.3 and Thoracic back pain, unspecified back pain laterality, unspecified chronicity M54.6 [place] [place] [id number] [place] [address] Oct, Thoracic back pain, unspecified back pain laterality, unspecified chronicity M54.6 and Anxiety F41.9 [place] [place] [address] [place] [address] Sep, Thoracic back pain, unspecified back pain laterality, unspecified chronicity M54.6 and Anxiety F41.9 [place] [place] [id number] [place] [address] Sep, Thoracic back pain, unspecified back pain laterality, unspecified chronicity M54.6 ; Anxiety F41.9 and Encounter for medication monitoring Z51.81 [place] [place] [id number] [place] [address] August, [place] [place] [address] [address] August, Thoracic back pain, unspecified back pain laterality, unspecified chronicity M54.6 and Anxiety F41.9 [place] [id number] [place] [address] August, Hyperlipidemia E78.5 and HTN (hypertension) I10 [facility] [place] [id number] [place] [address] August, [facility] [id number] [place] [address] August, Medicare welcome exam Z00.00 ; Chronic kidney failure N18.9 ; Anxiety F41.9 ; Chronic pain G89.29 ; Insomnia G47.00 ; Hyperlipidemia E78.5 ; HTN (hypertension) I10 and Thoracic back pain, unspecified back pain laterality, unspecified chronicity M54.6 [facility] [id number] [place] [address] Jul, [place] [place] [id number] [place] [address] Jul, [place] [id number] [place] [address] Jul, [place] [place] [id number] [place] [address] Jul, Anxiety F41.9 [place] [place] [id number] [place] [address] Jul, Thoracic back pain, unspecified back pain laterality, unspecified chronicity M54.6 and Anxiety F41.9 [place] [place] [id number] [place] [address] Jun, Thoracic back pain, unspecified back pain laterality, unspecified chronicity M54.6 and Anxiety F41.9 [place] [address] [address] May, Thoracic back pain, unspecified back pain laterality, unspecified chronicity M54.6 and Anxiety F41.9 [place] [place] [address] [address] Apr, Thoracic back pain, unspecified back pain laterality, unspecified chronicity M54.6 and Anxiety F41.9 [place] [place] [address] [address] Mar, [place] [place] [address] [address] Mar, Thoracic back pain, unspecified back pain laterality, unspecified chronicity M54.6 and Anxiety F41.9 [place] [place] [address] [address] Mar, Thoracic back pain, unspecified back pain laterality, unspecified chronicity M54.6 ; HTN (hypertension) I10 ; Hyperlipidemia E78.5 and Anxiety F41.9 [place] [place] [address] [address] Feb, Thoracic back pain, unspecified back pain laterality, unspecified chronicity M54.6 and Anxiety F41.9 [place] [address] [address] Nov, [place] [id number] [place] [address] Oct, [place] [place] [address] [address] Oct, Thoracic back pain, unspecified back pain laterality, unspecified chronicity M54.6 [facility] [id number] [place] [address] Oct, HTN (hypertension) I10 ; Constipation K59.00 ; Hyperlipidemia E78.5 ; Thoracic back pain, unspecified back pain laterality, unspecified chronicity M54.6 ; Chronic pain G89.29 ; Anxiety F41.9 ; Chronic kidney failure N18.9 ; Environmental allergies Z91.09 ; Vitamin D deficiency E55.9 and Primary insomnia F51.01 [facility] [id number] [place] [address] Sep, Anxiety F41.9 [facility] [id number] [place] [address] Sep, [facility] [address] [address] August, Anxiety F41.9 [facility] [id number] [place] [address] August, [facility] [id number] [place] [address] Jul, Anxiety F41.9 [facility] [id number] [place] [address] Jul, [facility] [id number] [place] [address] Jun, Anxiety F41.9 [facility] [id number] [place] [address] Jun, [facility] [id number] [place] [address] May, [facility] [id number] [place] [address] May, [facility] [address] [place] [address] May, [facility] [address] [address] Apr, [facility] [address] [place] [address] Apr, [facility] [address] [place] [address] Apr, Anxiety F41.9 [facility] [id number] [place] [address] Apr, Anxiety F41.9 [facility] [id number] [place] [address] Apr, [facility] [id number] [place] [address] Mar, HTN (hypertension) I10 ; Tremor R25.1 ; Hypercholesterolemia E78.0 ; Constipation K59.00 ; Chronic pain G89.29 ; Hyperlipidemia E78.5 ; Insomnia G47.00 ; Anxiety F41.9 and Thoracic back pain, unspecified back pain laterality, unspecified chronicity M54.6 [facility] [address] [place] [address] Mar, Tremor R25.1 ; HTN (hypertension) I10 ; Hypercholesterolemia E78.0 ; Constipation K59.00 ; Chronic pain G89.29 ; Hyperlipidemia E78.5 ; Insomnia G47.00 ; Anxiety F41.9 and Thoracic back pain, unspecified back pain laterality, unspecified chronicity M54.6 [facility] [address] [address] Mar, [facility] [id number] [place] [address] Mar, [facility] [address] [address] Feb, [facility] [id number] [address] 13 Jan, 2016 [facility] [id number] [place] [address] 10 Jan, 2016 [facility] [address] [place] [address] 15 Dec, 2015 [facility] [id number] [place] [address] Nov, [facility] [id number] [place] [address] Nov, [facility] [id number] [place] [address] Oct, Anxiety F41.9 [facility] [id number] [place] [address] Oct, Chronic pain G89.29 [facility] [id number] [place] [address] Sep, [facility] [id number] [place] [address] Sep, [facility] [id number] [place] [address] Sep, [facility] [address] [place] [address] Sep, [facility] [address] [place] [address] Sep, Chronic pain syndrome G89.4 [facility] [address] [place] [address] 15 Sep, 2015 HTN (hypertension) I10 ; Chronic pain G89.29 ; Hypercholesterolemia E78.0 ; Chronic kidney failure N18.9 ; Constipation, unspecified constipation type K59.00 ; Anxiety F41.9 and Thoracic back pain, unspecified back pain laterality, unspecified chronicity M54.6 [facility] [id number] [place] [address] August, Chronic pain syndrome G89.4 [facility] [id number] [place] [address] August, Chronic pain syndrome G89.4 [facility] [id number] [place] [address] Jul, Anxiety disorder, unspecified F41.9 and Chronic pain syndrome G89.4 [facility] [id number] [place] [address] Jul, Insomnia, unspecified G47.00 and Chronic pain syndrome G89.4 [facility] [address] [place] [address] Jul, Allergic rhinitis J30.9 [facility] [address] [place] [address] Jul, Constipation, unspecified K59.00 [facility] [address] [place] [address] Jul, [facility] [address] [place] [address] Jun, [facility] [address] [place] [address] Jun, [facility] [address] [address] Jun, [facility] [id number] [address] Jun, [facility] [address] [place] [address] Jun, [facility] [address] [place] [address] Jun, [facility] [address] [address] May, [facility] [address] [place] [address] May, [facility] [address] [place] [address] May, Anxiety F41.9 ; Insomnia G47.00 ; Hyperlipidemia E78.5 ; Chronic pain G89.29 ; HTN (hypertension) I10 ; Environmental allergies V15.09 and Constipation 564.00 [facility] [id number] [place] [address] Apr, [facility] [address] [place] [address] Apr, [facility] [address] [place] [address] Apr, [facility] [address] [place] [address] Mar, [facility] [id number] [place] [address] Mar, [facility] [address] [place] [address] Mar, [facility] [address] [place] [address] Feb, [facility] [address] [place] [address] Feb, [facility] [address] [place] [address] Feb, [facility] [address] [place] [address] Jan, HTN (hypertension) I10 ; Constipation K59.00 ; Chronic pain G89.29 ; Hyperlipidemia E78.5 ; Hypercholesterolemia E78.0 ; Insomnia G47.00 and Anxiety F41.9 [facility] [id number] [place] [address] Jan, [facility] [address] [address] Dec, [facility] [address] [address] Nov, [facility] [address] [address] Oct, Chronic kidney disease, unspecified 585.9 ; Chronic pain syndrome 338.4 ; Hyperlipidemia 272.4 and Essential hypertension 401.9 [facility] [address] [address] Oct, Chronic kidney disease 585.9 [facility] [id number] [place] [address] Oct, [facility] [id number] [place] [address] Oct, Chronic kidney disease, unspecified 585.9 ; Hypercalcemia 275.42 ; Hyperlipidemia 272.4 ; Essential hypertension 401.9 ; Chronic pain syndrome 338.4 ; Insomnia 780.52 ; Constipation 564.00 ; Environmental allergies V15.09 and Anxiety 300.00 [facility] [address] [address] Oct, Chronic kidney disease 585.9 [facility] [address] [address] Oct, [facility] [address] [address] Oct, Chronic kidney disease 585.9 and Hyperlipidemia 272.4 [facility] [address] [address] Oct, [facility] [address] [address] Oct, [facility] [address] [address] Sep, [facility] [address] [facility] [id number] [place] [address] 15 Sep, 2014 [facility] [address] [id number] [address] Sep, Chronic kidney disease 585.9 and Hyperlipidemia 272.4 [facility] [place] [facility] [address] [id number] [place] [address] Sep, [facility] [address] [id number] [place] [address] August, [facility] [address] [id number] [place] [address] August, [facility] [address] [id number] [place] [address] Jul, [facility] [address] [facility] [id number] [place] [address] Jul, [facility] [address] [facility] [id number] [place] [address] Jun, [facility] [place] [facility] [address] [id number] [place] [address] Jun, [facility] [address] [facility] [id number] [place] [address] Jun, [facility] [place] [facility] [address] [facility] [id number] [place] [address] Jun, [facility] [place] [facility] [address] [id number] [place] [address] Jun, [facility] [place] [facility] [address] [facility] [id number] [place] [address] Jun, [facility] [place] [facility] [address] [id number] [place] [address] Jun, [facility] [place] [facility] [address] [facility] [id number] [place] [address] Jun, [facility] [place] [facility] [address] [id number] [place] [address] 16 May, 2014 [facility] [place] [facility] [address] [id number] [place] [address] May, [facility] [place] [facility] [address] [id number] [place] [address] May, [facility] [place] [facility] [address] [id number] [place] [address] May, [facility] [place] [facility] [address] [id number] [place] [address] Apr, [facility] [place] [facility] [address] [id number] [place] [address] Apr, [facility] [place] [facility] [address] [id number] [place] [address] Apr, [facility] [place] [facility] [address] [id number] [place] [address] Apr, [facility] [place] [facility] [address] [id number] [place] [address] Apr, [facility] [place] [facility] [address] [id number] [place] [address] Apr, [facility] [place] [facility] [address] [id number] [place] [address] Apr, [facility] [place] [facility] [address] [id number] [place] [address] Apr, [facility] [place] [facility] [address] [id number] [place] [address] Apr, [facility] [place] [facility] [address] [id number] [place] [address] Apr, [facility] [place] [facility] [address] [id number] [place] [address] Apr, [facility] [place] [facility] [address] [id number] [place] [address] Mar, [facility] [place] [facility] [address] [id number] [place] [address] Mar, [facility] [place] [facility] [address] [id number] [place] [address] Feb, [facility] [place] [facility] [address] [id number] [place] [address] Feb, [facility] [place] [facility] [address] [id number] [place] [address] Feb, [facility] [place] [facility] [address] [id number] [place] [address] Feb, [facility] [place] [facility] [address] [id number] [place] [address] Feb, [facility] [place] [facility] [address] [id number] [place] [address] Feb, [facility] [place] [facility] [address] [id number] [place] [address] Feb, [facility] [place] [facility] [address] [id number] [place] [address] Feb, [facility] [place] [facility] [address] [id number] [place] [address] Feb, [facility] [place] [facility] [address] [id number] [place] [address] Feb, [facility] [place] [facility] [address] [id number] [place] [address] Jan, [facility] [place] [facility] [address] [id number] [place] [address] Jan, [facility] [place] [facility] [address] [id number] [place] [address] Jan, [facility] [place] [facility] [address] [id number] [address] Jan, [facility] [place] [facility] [address] [id number] [place] [address] Jan, [facility] [place] [facility] [address] [id number] [place] [address] 24 Jan, 2014 [facility] [place] [facility] [address] [id number] [place] [address] Jan, [facility] [place] [facility] [address] [id number] [place] [address] Jan, [facility] [place] [facility] [address] [id number] [place] [address] 16 Jan, 2014 [facility] [place] [facility] [address] [id number] [place] [address] Jan, [facility] [place] [facility] [address] [id number] [place] [address] Jan, [facility] [place] [facility] [address] [id number] [place] [address] 26 Dec, 2013 [facility] [place] [facility] [address] [id number] [place] [address] 26 Dec, 2013 [facility] [place] [facility] [address] [id number] [place] [address] 19 Dec, 2013 [facility] [place] [facility] [address] [id number] [place] [address] 19 Dec, 2013 [facility] [place] [facility] [address] [id number] [place] [address] 18 Dec, 2013 [facility] [place] [facility] [address] [id number] [place] [address] 18 Dec, 2013 [facility] [place] [facility] [address] [id number] [place] [address] 03 Dec, 2013 [facility] [place] [facility] [address] [id number] [place] [address] 03 Dec, 2013 [facility] [place] [facility] [address] [id number] [place] [address] 20 Nov, 2013 [facility] [place] [facility] [address] [id number] [place] [address] Nov, [facility] [place] [facility] [address] [id number] [place] [address] Nov, [facility] [place] [facility] [address] [id number] [place] [address] Nov, [facility] [place] [facility] [address] [id number] [place] [address] Nov, [facility] [place] [facility] [address] [id number] [place] [address] Nov, [facility] [place] [facility] [address] [id number] [place] [address] Nov, [facility] [place] [facility] [address] [id number] [place] [address] Nov, [facility] [place] [facility] [address] [id number] [place] [address] Oct, [facility] [place] [facility] [address] [id number] [place] [address] Oct, [facility] [place] [facility] [address] [id number] [place] [address] Oct, [facility] [place] [facility] [address] [id number] [place] [address] Oct, [facility] [place] [facility] [address] [id number] [place] [address] Sep, [facility] [place] [facility] [address] [id number] [place] [address] Sep, [facility] [place] [facility] [address] [id number] [place] [address] Sep, [facility] [place] [facility] [address] [id number] [place] [address] Sep, [facility] [place] [facility] [address] [id number] [place] [address] Sep, [facility] [place] [facility] [address] [id number] [place] [address] Sep, [facility] [place] [facility] [address] [id number] [place] [address] Sep, [facility] [place] [facility] [address] [id number] [place] [address] Sep, [facility] [place] [facility] [address] [id number] [place] [address] August, [facility] [place] [facility] [address] [id number] [place] [address] August, [facility] [place] [facility] [address] [id number] [place] [address] August, [facility] [place] [facility] [address] [id number] [place] [address] August, [facility] [place] [facility] [address] [id number] [place] [address] August, [facility] [place] [facility] [address] [id number] [place] [address] August, [facility] [place] [facility] [address] [id number] [place] [address] August, [facility] [place] [facility] [address] [id number] [place] [address] August, [facility] [place] [facility] [address] [id number] [place] [address] August, [facility] [place] [facility] [address] [id number] [place] [address] August, [facility] [place] [facility] [address] [id number] [place] [address] Jul, [facility] [place] [facility] [address] [id number] [place] [address] Jul, [facility] [place] [facility] [address] [id number] [place] [address] Jul, [facility] [place] [facility] [address] [id number] [place] [address] Jul, [facility] [place] [facility] [address] [id number] [place] [address] Jul, [facility] [place] [facility] [address] [id number] [place] [address] Jul, [facility] [place] [facility] [address] [id number] [place] [address] Jul, [facility] [place] [facility] [address] [id number] [place] [address] Jul, [facility] [place] [facility] [address] [id number] [place] [address] Jun, [facility] [place] [facility] [address] [id number] [place] [address] Jun, [facility] [place] [facility] [address] [id number] [place] [address] Jun, [facility] [place] [facility] [address] [id number] [place] [address] Jun, [facility] [place] [facility] [address] [facility] [id number] [place] [address] Jun, [facility] [place] [facility] [address] [id number] [place] [address] Jun, [facility] [place] [facility] [address] [id number] [place] [address] May, [facility] [place] [facility] [address] [id number] [place] [address] May, [facility] [place] [facility] [address] [id number] [place] [address] May, [facility] [place] [facility] [address] [id number] [place] [address] May, [facility] [place] [facility] [address] [id number] [place] [address] May, [facility] [place] [facility] [address] [id number] [place] [address] May, [facility] [place] [facility] [address] [id number] [place] [address] May, [facility] [place] [facility] [address] [id number] [place] [address] Apr, [facility] [place] [facility] [address] [id number] [place] [address] Apr, [facility] [place] [facility] [address] [id number] [place] [address] Apr, [facility] [place] [facility] [address] [id number] [place] [address] Apr, [facility] [place] [facility] [address] [id number] [place] [address] Apr, [facility] [place] [facility] [address] [id number] [place] [address] Apr, [facility] [place] [facility] [address] [id number] [place] [address] Mar, [facility] [place] [facility] [address] [id number] [place] [address] Mar, [facility] [place] [facility] [address] [id number] [place] [address] Mar, [facility] [place] [facility] [address] [id number] [place] [address] Mar, [facility] [place] [facility] [address] [id number] [place] [address] Mar, [facility] [place] [facility] [address] [id number] [place] [address] Mar, [facility] [place] [facility] [address] [id number] [place] [address] 16 Mar, 2013 [facility] [address] [id number] [place] [address] 16 Mar, 2013 [facility] [place] [facility] [address] [id number] [place] [address] Mar, [facility] [address] [id number] [place] [address] Mar, [facility] [place] [facility] [address] [id number] [place] [address] Feb, [facility] [place] [facility] [address] [id number] [place] [address] Feb, [facility] [place] [facility] [address] [id number] [place] [address] Feb, [facility] [address] [id number] [place] [address] Feb, [facility] [place] [facility] [address] [id number] [place] [address] Feb, [facility] [address] [id number] [place] [address] 14 Feb, 2013 [facility] [place] [facility] [address] [facility] [id number] [place] [address] Feb, [facility] [place] [facility] [address] [id number] [place] [address] Feb, [facility] [place] [facility] [address] [id number] [place] [address] Feb, [facility] [place] [facility] [address] [id number] [place] [address] Feb, [facility] [place] [facility] [address] [id number] [place] [address] Jan, [facility] [place] [facility] [address] [id number] [place] [address] Jan, [facility] [place] [facility] [address] [id number] [place] [address] Jan, [facility] [place] [facility] [address] [id number] [place] [address] Jan, [facility] [place] [facility] [address] [id number] [place] [address] Jan, [facility] [place] [facility] [address] [id number] [place] [address] Jan, [facility] [place] [facility] [address] [id number] [place] [address] Jan, [facility] [place] [facility] [address] [id number] [place] [address] Jan, [facility] [place] [facility] [address] [id number] [place] [address] Jan, [facility] [place] [facility] [address] [id number] [place] [address] 25 Dec, 2012 [facility] [place] [facility] [address] [id number] [place] [address] Dec, [facility] [place] [facility] [address] [id number] [place] [address] Dec, [facility] [place] [facility] [address] [id number] [place] [address] Dec, [facility] [place] [facility] [address] [id number] [place] [address] Nov, [facility] [place] [facility] [address] [id number] [place] [address] Nov, [facility] [place] [facility] [address] [id number] [place] [address] Nov, [facility] [place] [facility] [address] [id number] [place] [address] Nov, [facility] [place] [facility] [address] [id number] [place] [address] Nov, [facility] [address] [id number] [place] [address] Nov, [facility] [place] [facility] [address] [id number] [place] [address] Oct, [facility] [place] [facility] [address] [id number] [place] [address] Oct, [facility] [place] [facility] [address] [id number] [place] [address] Oct, [facility] [address] [id number] [place] [address] Oct, [facility] [place] [facility] [address] [id number] [place] [address] Sep, [facility] [place] [facility] [address] [id number] [place] [address] Sep, [facility] [place] [facility] [address] [id number] [place] [address] Sep, [facility] [place] [facility] [address] [id number] [place] [address] Sep, [facility] [place] [facility] [address] [id number] [place] [address] Sep, [facility] [place] [facility] [address] [id number] [place] [address] August, [facility] [place] [facility] [address] [id number] [place] [address] August, [facility] [place] [facility] [address] [id number] [place] [address] Jul, [facility] [place] [facility] [address] [id number] [place] [address] Jul, [facility] [place] [facility] [address] [id number] [place] [address] 15 Jul, 2012 [facility] [place] [facility] [address] [id number] [place] [address] 09 Jul, 2012 [facility] [address] [id number] [place] [address] 08 Jul, 2012 [facility] [place] [facility] [address] [id number] [place] [address] 26 Jun, 2012 [facility] [place] [facility] [address] [id number] [place] [address] 20 Jun, 2012 [facility] [place] [facility] [address] [id number] [place] [address] 15 Jun, 2012 [facility] [address] [id number] [place] [address] 06 Jun, 2012 [facility] [place] [facility] [address] [facility] [id number] [place] [address] Jun, [facility] [place] [facility] [address] [id number] [place] [address] 28 May, 2012 [facility] [address] [facility] [id number] [place] [address] 27 May, 2012 [facility] [place] [facility] [id number] [place] [address] 25 May, 2012 [facility] [address] [id number] [place] [address] 21 May, 2012 [facility] [place] [facility] [address] [facility] [id number] [place] [address] 20 May, 2012 [facility] [place] [facility] [address] [facility] [id number] [place] [address] 14 May, 2012 [facility] [place] [facility] [address] [facility] [id number] [place] [address] 13 May, 2012 [facility] [place] [facility] [address] [facility] [id number] [place] [address] 08 May, 2012 [facility] [place] [facility] [address] [id number] [place] [address] May, [facility] [address] [id number] [place] [address] Apr, [facility] [place] [facility] [address] [id number] [place] [address] Apr, [facility] [address] [id number] [place] [address] Apr, [facility] [place] [facility] [address] [id number] [place] [address] Apr, [facility] [address] [id number] [place] [address] Apr, [facility] [address] [id number] [place] [address] Mar, [facility] [address] [id number] [place] [address] Mar, [facility] [place] [facility] [address] [id number] [place] [address] Mar, [facility] [address] [id number] [place] [address] Mar, [facility] [place] [facility] [address] [id number] [place] [address] Mar, [facility] [place] [facility] [address] [id number] [place] [address] Mar, [facility] [place] [facility] [address] [id number] [place] [address] Mar, [facility] [place] [facility] [address] [id number] [place] [address] Mar, [facility] [place] [facility] [address] [id number] [place] [address] Mar, [facility] [place] [facility] [address] [id number] [place] [address] Mar, [facility] [place] [facility] [address] [id number] [place] [address] 30 Feb, 2012 [facility] [address] [id number] [place] [address] 30 Feb, 2012 [facility] [place] [facility] [address] [id number] [place] [address] Feb, [facility] [place] [facility] [address] [id number] [place] [address] Feb, [facility] [place] [facility] [address] [id number] [place] [address] Feb, [facility] [place] [facility] [address] [id number] [place] [address] Feb, [facility] [place] [facility] [address] [id number] [place] [address] Feb, [facility] [place] [facility] [address] [id number] [place] [address] Feb, [facility] [place] [facility] [address] [id number] [place] [address] 16 Feb, 2012 [facility] [place] [facility] [address] [id number] [place] [address] 16 Feb, 2012 [facility] [place] [facility] [address] [id number] [place] [address] Feb, [facility] [place] [facility] [address] [id number] [place] [address] Feb, [facility] [place] [facility] [address] [id number] [place] [address] Feb, [facility] [place] [facility] [address] [id number] [place] [address] Feb, [facility] [place] [facility] [address] [id number] [place] [address] Feb, [facility] [place] [facility] [address] [id number] [place] [address] Feb, [facility] [place] [facility] [address] [id number] [place] [address] Feb, [facility] [place] [facility] [address] [id number] [place] [address] Feb, [facility] [place] [facility] [address] [id number] [place] [address] Jan, [facility] [place] [facility] [address] [id number] [place] [address] Jan, [facility] [place] [facility] [address] [id number] [place] [address] Jan, [facility] [place] [facility] [address] [id number] [place] [address] Jan, [facility] [place] [facility] [address] [id number] [place] [address] Jan, [facility] [place] [facility] [address] [id number] [place] [address] Jan, [facility] [place] [facility] [address] [id number] [place] [address] Jan, [facility] [place] [facility] [address] [id number] [place] [address] Jan, [facility] [place] [facility] [address] [facility] [id number] [place] [address] Jan, [facility] [place] [facility] [address] [id number] [place] [address] Jan, [facility] [place] [facility] [address] [id number] [place] [address] 24 Dec, 2011 [facility] [place] [facility] [address] [id number] [place] [address] 18 Dec, 2011 [facility] [place] [facility] [address] [id number] [place] [address] 04 Dec, 2011 [facility] [place] [facility] [address] [id number] [place] [address] Dec, [facility] [place] [facility] [address] [id number] [place] [address] Nov, [facility] [place] [facility] [address] [id number] [place] [address] Nov, [facility] [place] [facility] [address] [id number] [place] [address] Nov, [facility] [place] [facility] [address] [id number] [place] [address] Nov, [facility] [place] [facility] [address] [id number] [place] [address] Nov, [facility] [place] [facility] [address] [id number] [place] [address] Nov, [facility] [place] [facility] [address] [id number] [place] [address] Oct, [facility] [place] [facility] [address] [id number] [place] [address] Oct, [facility] [place] [facility] [address] [id number] [place] [address] Oct, [facility] [place] [facility] [address] [id number] [place] [address] Oct, [facility] [place] [facility] [address] [id number] [place] [address] Oct, [facility] [place] [facility] [address] [id number] [place] [address] Sep, [facility] [place] [facility] [address] [id number] [place] [address] Sep, [facility] [place] [facility] [address] [id number] [place] [address] Sep, [facility] [place] [facility] [address] [id number] [place] [address] Sep, [facility] [place] [facility] [address] [id number] [place] [address] 05 Sep, 2011 [facility] [address] [id number] [place] [address] August, [facility] [place] [facility] [address] [id number] [place] [address] August, [facility] [address] [id number] [place] [address] August, [facility] [address] [id number] [place] [address] August, [facility] [address] [id number] [place] [address] Jul, [facility] [address] [id number] [place] [address] Jul, [facility] [address] [id number] [place] [address] Jul, [facility] [address] [id number] [place] [address] Jul, [facility] [address] [id number] [place] [address] Jul, [facility] [address] [id number] [place] [address] Jul, [facility] [place] [facility] [address] [id number] [place] [address] Jul, [facility] [place] [facility] [address] [id number] [place] [address] 10 Jul, 2011 [facility] [place] [facility] [address] [id number] [place] [address] 09 Jul, 2011 [facility] [place] [facility] [address] [id number] [place] [address] Jul, [facility] [place] [facility] [address] [id number] [place] [address] Jul, [facility] [address] [id number] [place] [address] Jul, [facility] [place] [facility] [address] [id number] [place] [address] Jul, [facility] [place] [facility] [address] [id number] [place] [address] Jul, [facility] [place] [facility] [address] [id number] [place] [address] Jun, [facility] [place] [facility] [address] [id number] [place] [address] Jun, [facility] [place] [facility] [address] [id number] [place] [address] Jun, [facility] [place] [facility] [address] [id number] [place] [address] Jun, [facility] [place] [facility] [address] [id number] [place] [address] May, [facility] [place] [facility] [address] [id number] [place] [address] May, [facility] [place] [facility] [address] [id number] [place] [address] May, [facility] [place] [facility] [address] [id number] [place] [address] Apr, [facility] [place] [facility] [address] [id number] [place] [address] Apr, [facility] [place] [facility] [address] [id number] [place] [address] Apr, [facility] [place] [facility] [address] [id number] [place] [address] Apr, [facility] [place] [facility] [address] [id number] [place] [address] Apr, [facility] [place] [facility] [address] [id number] [place] [address] Mar, [facility] [place] [facility] [address] [id number] [place] [address] Mar, [facility] [place] [facility] [address] [id number] [place] [address] Mar, [facility] [place] [facility] [address] [id number] [place] [address] Mar, [facility] [place] [facility] [address] [id number] [place] [address] 16 Mar, 2011 [facility] [place] [facility] [address] [id number] [place] [address] Mar, [facility] [place] [facility] [address] [id number] [place] [address] Mar, [facility] [place] [facility] [address] [id number] [place] [address] Feb, [facility] [place] [facility] [address] [id number] [place] [address] Feb, [facility] [place] [facility] [address] [id number] [place] [address] Feb, [facility] [place] [facility] [address] [id number] [place] [address] Feb, [facility] [place] [facility] [address] [id number] [place] [address] 16 Feb, 2011 [facility] [place] [facility] [address] [id number] [place] [address] 14 Feb, 2011 [facility] [place] [facility] [address] [id number] [place] [address] 10 Feb, 2011 [facility] [place] [facility] [address] [id number] [place] [address] 31 Jan, 2011 [facility] [place] [facility] [address] [id number] [place] [address] 31 Jan, 2011 [facility] [place] [facility] [address] [id number] [place] [address] 31 Jan, 2011 [facility] [address] [id number] [place] [address] 18 Jan, 2011 [facility] [address] [id number] [place] [address] 17 Jan, 2011 [facility] [address] [id number] [place] [address] 17 Jan, 2011 [facility] [address] [id number] [place] [address] 17 Jun, 2010 [facility] [address] [id number] [place] [address] 30 Mar, 2010 [facility] [address] [id number] [place] [address] 20 Mar, 2010 [facility] [address] [id number] [place] [address] 14 Mar, 2010 [facility] [address] [id number] [place] [address] 14 Mar, 2010 [facility] [address] [id number] [place] [address] 13 Mar, 2010 [facility] [place] [facility] [address] [id number] [place] [address] 07 Mar, 2010 [facility] [place] [facility] [address] [id number] [place] [address] 02 Mar, 2010 [facility] [place] [facility] [address] [id number] [place] [address] Mar, [facility] [place] [facility] [address] [id number] [place] [address] 30 Feb, 2010 [facility] [place] [facility] [address] [id number] [place] [address] 29 Feb, 2010 [facility] [place] [facility] [address] [id number] [address] 17 Feb, 2010 [facility] [place] [facility] [address] [id number] [place] [address] 17 Feb, 2010 [facility] [place] [facility] [address] [id number] [place] [address] 16 Feb, 2010 [facility] [place] [facility] [address] [id number] [place] [address] 08 Feb, 2010 [facility] [place] [facility] [address] [id number] [place] [address] 04 Feb, 2010 [facility] [place] [facility] [address] [id number] [place] [address] Feb, [facility] [place] [facility] [address] [id number] [place] [address] 28 Jan, 2010 [facility] [place] [facility] [address] [id number] [place] [address] Jan, [facility] [place] [facility] [address] [id number] [place] [address] Jan, [facility] [place] [facility] [address] [id number] [place] [address] 18 Jan, 2010 [facility] [place] [facility] [address] [id number] [place] [address] 29 Mar, 2009 [facility] [place] [facility] [address] [id number] [place] [address] 22 Mar, 2009 [facility] [place] [facility] [address] [id number] [place] [address] 19 Mar, 2009 [facility] [place] [facility] [address] [id number] [place] [address] 19 Mar, 2009 [facility] [place] [facility] [address] [id number] [place] [address] 14 Mar, 2009 [facility] [place] [facility] [address] [id number] [place] [address] 10 Mar, 2009 [facility] [place] [facility] [address] [facility] [id number] [place] [address] Feb, [facility] [address] [facility] [id number] [place] [address] Feb, [facility] [address] [facility] [id number] [place] [address] Jan, [facility] [address] [facility] [id number] [place] [address] Sep, [facility] [address] [facility] [id number] [place] [address] May, IMMUNIZATIONS No Known Immunizations SOCIAL HISTORY Never Assessed REASON FOR VISIT EMR-[facility] [place] PLAN OF CARE VITAL SIGNS MEDICATIONS Medication Instructions Dosage Frequency Start Date End Date Duration Status Carisoprodol 350 mg 1 tablet by Oral route 4 times per day Jun, Active Triavil 2-25 mg 6 tablet by Oral route 1 time per day Jan, Active Niacin 500 mg 1 capsule by Oral route 1 time per day Dec, Active fluticasone 50 mcg/actuation inhale 2 sprays (100 mcg) in each nostril by intranasal route once daily 1 spray in each nostril Jun, Active Ofloxacin 0.3 % 3 drop by Otic route 2 times per day for 10 day(s) Nov, Active thioridazine 50 mg take 4 tablets by Oral route 1 time per day May, Active Ciprodex 0.3-0.1 % 4 drop by Otic route 2 times per day for 14 day(s) Feb, Active Perphenazine-Amitriptyline 2-25 mg take 6 tablet by Oral route 1 time per day Feb, Active Fenofibrate 54 mg take 1 tablet (54 mg) by oral route once daily Sep, Active acetaminophen-hydrocodone 10-325 mg take 1 tablet by Oral route every 6 hours PRN Jun, Active Alprazolam 2 mg take 0.5 tablet by Oral route 4 times per day PRN Jun, Active MiraLax 17 gram/dose take 17 g mixed with 8 oz. water or juice by Oral route 1 time per day Feb, Active Debrox 6.5 % 3 drop by Otic route 2 times per day for 4 day(s) Nov, Active RESULTS No Results PROCEDURES No Known [...] [facility] Pneum[facility] Hospitalization History [facility]- Colon resection Hospitalization History via [facility] - diarrhea/ couldnt urinate nov 2017
--- OUTSIDE RECORDS SUMMARY | 2018-10-15 01:13 | XMS REPORT ---
Author Author Migration, Doctor Organization [facility] Address Unknown Phone Unavailable Care Team Providers Care Valve Setter Name Role Phone Migration, Doctor Unavailable Unavailable PROBLEMS Type Condition ICD9-CM Code ITB69-DV Code Onset Dates Condition Status SNOMED Code Problem Constipation K59.00 Active 57324591 Problem Chronic pain G89.29 Active 42386170 Problem Hyperlipidemia E78.5 Active 50370765 Problem Insomnia G47.00 Active 287704503 Problem Chronic kidney disease, stage III (moderate) N18.3 Active 808492777 Problem Anxiety F41.9 Active 80030231 Problem Vision loss H54.7 Active 949016910 Problem HTN (hypertension) I10 Active 69114768 Problem Thoracic back pain, unspecified back pain laterality, unspecified chronicity M54.6 Active 156257821 Problem Vitamin D deficiency E55.9 Active 24738955 Problem Environmental allergies Z91.09 Active 885195290 Problem Primary insomnia F51.01 Active 5323447 ALLERGIES No Information ENCOUNTERS Encounter Location Date Diagnosis [facility] [id number] [place] [address] Jun, Anxiety F41.9 and Thoracic back pain, unspecified back pain laterality, unspecified chronicity M54.6 [facility] [id number] [place] [address] Jun, Thoracic back pain, unspecified back pain laterality, unspecified chronicity M54.6 [facility] [address] [address] Jun, Anxiety F41.9 and Thoracic back pain, unspecified back pain laterality, unspecified chronicity M54.6 [facility] [id number] [place] [address] May, [facility] [id number] [place] [address] May, [facility] [id number] [place] [address] May, [facility] [address] [address] 06 May, 2018 Anxiety F41.9 and Encounter for medication monitoring Z51.81 [facility] [address] [address] May, Anxiety F41.9 and Thoracic back pain, unspecified back pain laterality, unspecified chronicity M54.6 [facility] [address] [address] Apr, Hyperlipidemia 272.4 [facility] [address] [address] Apr, Chronic pain G89.29 ; Anxiety F41.9 ; Cervical radiculopathy M54.12 and Vision loss H54.7 [facility] [id number] [place] [address] Apr, [facility] [address] [address] Apr, Anxiety F41.9 and Thoracic back pain, unspecified back pain laterality, unspecified chronicity M54.6 [facility] [address] [address] 17 Mar, 2018 [place] [address] [address] 10 Mar, 2018 Anxiety F41.9 and Thoracic back pain, unspecified back pain laterality, unspecified chronicity M54.6 [facility] [facility] [address] [address] 14 Feb, 2018 Anxiety F41.9 and Thoracic back pain, unspecified back pain laterality, unspecified chronicity M54.6 [facility] [id number] [place] [address] Feb, Thoracic back pain, unspecified back pain laterality, unspecified chronicity M54.6 [facility] [id number] [place] [address] Jan, [facility] [id number] [place] [address] Jan, Anxiety F41.9 and Thoracic back pain, unspecified back pain laterality, unspecified chronicity M54.6 [facility] [id number] [place] [address] 19 Dec, 2017 Diarrhea of presumed infectious origin R19.7 [facility] [id number] [place] [address] 19 Dec, 2017 Diarrhea of presumed infectious origin R19.7 [facility] [id number] [place] [address] 18 Dec, 2017 Thoracic back pain, unspecified back pain laterality, unspecified chronicity M54.6 [facility] [id number] [place] [address] 17 Dec, 2017 [facility] [id number] [place] [address] 17 Dec, 2017 Anxiety F41.9 and Thoracic back pain, unspecified back pain laterality, unspecified chronicity M54.6 [facility] [id number] [place] [address] Dec, Diarrhea of presumed infectious origin R19.7 [facility] [id number] [place] [address] Dec, [facility] [id number] [place] [address] Dec, Anxiety F41.9 and Thoracic back pain, unspecified back pain laterality, unspecified chronicity M54.6 [facility] [id number] [place] [address] Dec, Anxiety F41.9 and Thoracic back pain, unspecified back pain laterality, unspecified chronicity M54.6 [facility] [employer] [address] [place] [id number] Dec, Diarrhea of presumed infectious origin R19.7 ; Anxiety F41.9 ; Thoracic back pain, unspecified back pain laterality, unspecified chronicity M54.6 and HTN (hypertension) I10 [facility] [id number] [place] [address] Dec, Anxiety F41.9 [facility] [address] [place] [id number] Dec, Anxiety F41.9 ; Diarrhea of presumed infectious origin R19.7 ; Generalized abdominal pain R10.84 and Localized edema R60.0 [facility] [place] [address] [address] Nov, [facility] [employer] [address] [place] [id number] Nov, Anxiety F41.9 ; Urinary retention R33.9 ; Diarrhea of presumed infectious origin R19.7 ; Weakness R53.1 ; Acute kidney failure, unspecified N17.9 ; Chronic kidney disease, stage III (moderate) N18.3 and Thoracic back pain, unspecified back pain laterality, unspecified chronicity M54.6 [facility] [id number] [place] [address] Oct, Thoracic back pain, unspecified back pain laterality, unspecified chronicity M54.6 and Anxiety F41.9 [facility] [id number] [place] [address] Sep, Thoracic back pain, unspecified back pain laterality, unspecified chronicity M54.6 and Anxiety F41.9 [facility] [address] [address] Sep, Thoracic back pain, unspecified back pain laterality, unspecified chronicity M54.6 ; Anxiety F41.9 and Encounter for medication monitoring Z51.81 [facility] [address] [address] August, [facility] [id number] [place] [address] August, Thoracic back pain, unspecified back pain laterality, unspecified chronicity M54.6 and Anxiety F41.9 [facility] [id number] [place] [address] August, Hyperlipidemia E78.5 and HTN (hypertension) I10 [facility] [id number] [place] [address] August, [facility] [id number] [place] [address] August, Medicare welcome exam Z00.00 ; Chronic kidney failure N18.9 ; Anxiety F41.9 ; Chronic pain G89.29 ; Insomnia G47.00 ; Hyperlipidemia E78.5 ; HTN (hypertension) I10 and Thoracic back pain, unspecified back pain laterality, unspecified chronicity M54.6 [facility] [id number] [place] [address] Jul, [facility] [id number] [place] [address] Jul, [facility] [id number] [place] [address] Jul, [facility] [id number] [place] [address] Jul, Anxiety F41.9 [facility] [id number] [place] [address] Jul, Thoracic back pain, unspecified back pain laterality, unspecified chronicity M54.6 and Anxiety F41.9 [facility] [id number] [place] [address] Jun, Thoracic back pain, unspecified back pain laterality, unspecified chronicity M54.6 and Anxiety F41.9 [facility] [id number] [address] 12 May, 2017 Thoracic back pain, unspecified back pain laterality, unspecified chronicity M54.6 and Anxiety F41.9 [facility] [id number] [place] [address] Apr, Thoracic back pain, unspecified back pain laterality, unspecified chronicity M54.6 and Anxiety F41.9 [facility] [id number] [place] [address] Mar, [facility] [id number] [place] [address] Mar, Thoracic back pain, unspecified back pain laterality, unspecified chronicity M54.6 and Anxiety F41.9 [facility] [id number] [place] [address] 14 Mar, 2017 Thoracic back pain, unspecified back pain laterality, unspecified chronicity M54.6 ; HTN (hypertension) I10 ; Hyperlipidemia E78.5 and Anxiety F41.9 [facility] [id number] [place] [address] Feb, Thoracic back pain, unspecified back pain laterality, unspecified chronicity M54.6 and Anxiety F41.9 [facility] [id number] [place] [address] Nov, [facility] [id number] [place] [address] Oct, [facility] [id number] [place] [address] Oct, Thoracic back pain, unspecified back pain laterality, unspecified chronicity M54.6 [facility] [id number] [place] [address] Oct, HTN (hypertension) I10 ; Constipation K59.00 ; Hyperlipidemia E78.5 ; Thoracic back pain, unspecified back pain laterality, unspecified chronicity M54.6 ; Chronic pain G89.29 ; Anxiety F41.9 ; Chronic kidney failure N18.9 ; Environmental allergies Z91.09 ; Vitamin D deficiency E55.9 and Primary insomnia F51.01 [facility] [id number] [place] [address] Sep, Anxiety F41.9 [facility] [id number] [place] [address] Sep, [facility] [id number] [place] [address] August, Anxiety F41.9 [facility] [id number] [place] [address] August, [facility] [id number] [place] [address] Jul, Anxiety F41.9 [facility] [id number] [place] [address] Jul, [facility] [id number] [place] [address] Jun, Anxiety F41.9 [facility] [id number] [place] [address] Jun, [facility] [id number] [place] [address] May, [facility] [id number] [place] [address] May, [facility] [id number] [place] [address] May, [facility] [id number] [place] [address] Apr, [facility] [id number] [place] [address] Apr, [facility] [id number] [place] [address] Apr, Anxiety F41.9 [facility] [id number] [place] [address] Apr, Anxiety F41.9 [facility] [id number] [place] [address] Apr, [facility] [id number] [place] [address] Mar, HTN (hypertension) I10 ; Tremor R25.1 ; Hypercholesterolemia E78.0 ; Constipation K59.00 ; Chronic pain G89.29 ; Hyperlipidemia E78.5 ; Insomnia G47.00 ; Anxiety F41.9 and Thoracic back pain, unspecified back pain laterality, unspecified chronicity M54.6 [facility] [id number] [place] [address] Mar, Tremor R25.1 ; HTN (hypertension) I10 ; Hypercholesterolemia E78.0 ; Constipation K59.00 ; Chronic pain G89.29 ; Hyperlipidemia E78.5 ; Insomnia G47.00 ; Anxiety F41.9 and Thoracic back pain, unspecified back pain laterality, unspecified chronicity M54.6 [facility] [id number] [place] [address] Mar, [facility] [id number] [place] [address] Mar, [facility] [id number] [place] [address] Feb, [facility] [id number] [place] [address] Jan, [facility] [id number] [place] [address] Jan, [facility] [id number] [place] [address] 15 Dec, 2015 [facility] [id number] [place] [address] Nov, [facility] [address] [address] Nov, [facility] [id number] [place] [address] Oct, Anxiety F41.9 [facility] [id number] [place] [address] Oct, Chronic pain G89.29 [facility] [id number] [place] [address] Sep, [facility] [id number] [place] [address] Sep, [facility] [id number] [place] [address] Sep, [facility] [id number] [place] [address] Sep, [facility] [id number] [place] [address] Sep, Chronic pain syndrome G89.4 [facility] [id number] [place] [address] Sep, HTN (hypertension) I10 ; Chronic pain G89.29 ; Hypercholesterolemia E78.0 ; Chronic kidney failure N18.9 ; Constipation, unspecified constipation type K59.00 ; Anxiety F41.9 and Thoracic back pain, unspecified back pain laterality, unspecified chronicity M54.6 [facility] [id number] [place] [address] August, Chronic pain syndrome G89.4 [facility] [id number] [place] [address] August, Chronic pain syndrome G89.4 [facility] [id number] [place] [address] Jul, Anxiety disorder, unspecified F41.9 and Chronic pain syndrome G89.4 [facility] [address] [address] Jul, Insomnia, unspecified G47.00 and Chronic pain syndrome G89.4 [facility] [id number] [address] Jul, Allergic rhinitis J30.9 [facility] [id number] [place] [address] Jul, Constipation, unspecified K59.00 [facility] [id number] [place] [address] Jul, [facility] [id number] [place] [address] Jun, [facility] [id number] [place] [address] Jun, [facility] [id number] [place] [address] Jun, [facility] [id number] [place] [address] Jun, [facility] [id number] [place] [address] Jun, [facility] [id number] [place] [address] Jun, [facility] [id number] [place] [address] May, [facility] [address] [place] [address] May, [facility] [id number] [place] [address] May, Anxiety F41.9 ; Insomnia G47.00 ; Hyperlipidemia E78.5 ; Chronic pain G89.29 ; HTN (hypertension) I10 ; Environmental allergies V15.09 and Constipation 564.00 [place] [address] [address] Apr, [facility] [id number] [place] [address] Apr, [facility] [address] [address] Apr, [facility] [id number] [place] [address] Mar, [facility] [id number] [place] [address] Mar, [facility] [id number] [place] [address] Mar, [facility] [id number] [place] [address] Feb, [facility] [id number] [place] [address] Feb, [facility] [id number] [place] [address] Feb, [facility] [id number] [place] [address] Jan, HTN (hypertension) I10 ; Constipation K59.00 ; Chronic pain G89.29 ; Hyperlipidemia E78.5 ; Hypercholesterolemia E78.0 ; Insomnia G47.00 and Anxiety F41.9 [facility] [address] [address] Jan, [facility] [address], [place] [address] Dec, [facility] [id number] [place] [address] Nov, [facility] [address], [place] [address] Oct, Chronic kidney disease, unspecified 585.9 ; Chronic pain syndrome 338.4 ; Hyperlipidemia 272.4 and Essential hypertension 401.9 [facility] [address] [address] Oct, Chronic kidney disease 585.9 [facility] [address] [address] 15 Oct, 2014 [facility] [id number] [place] [address] Oct, Chronic kidney disease, unspecified 585.9 ; Hypercalcemia 275.42 ; Hyperlipidemia 272.4 ; Essential hypertension 401.9 ; Chronic pain syndrome 338.4 ; Insomnia 780.52 ; Constipation 564.00 ; Environmental allergies V15.09 and Anxiety 300.00 [facility] [id number] [place] [address] Oct, Chronic kidney disease 585.9 [facility] [id number] [place] [address] Oct, [facility] [id number] [place] [address] Oct, Chronic kidney disease 585.9 and Hyperlipidemia 272.4 [facility] [id number] [place] [address] Oct, [facility] [address], [place] [address] Oct, [facility] [address], [place] [address] Sep, [facility] [address], [place] [address] Sep, [facility] [id number] [place] [address] Sep, Chronic kidney disease 585.9 and Hyperlipidemia 272.4 [facility] [address], [place] [address] Sep, [facility] [place] [facility] [address] [id number] [place] [address] August, [facility] [place] [facility] [address] [id number] [place] [address] August, [facility] [place] [facility] [address] [id number] [place] [address] Jul, [facility] [place] [facility] [address] [id number] [place] [address] Jul, [facility] [place] [facility] [address] [id number] [place] [address] Jun, [facility] [place] [facility] [address] [id number] [place] [address] Jun, [facility] [place] [facility] [address] [id number] [place] [address] Jun, [facility] [place] [facility] [address] [id number] [place] [address] Jun, [facility] [place] [facility] [address] [id number] [place] [address] Jun, [facility] [place] [facility] [address] [id number] [place] [address] Jun, [facility] [place] [facility] [address] [id number] [place] [address] Jun, [facility] [place] [facility] [address] [id number] [place] [address] Jun, [facility] [place] [facility] [address] [id number] [place] [address] May, [facility] [place] [facility] [address] [id number] [place] [address] May, [facility] [place] [facility] [address] [id number] [place] [address] May, [facility] [place] [facility] [address] [id number] [place] [address] May, [facility] [place] [facility] [address] [id number] [place] [address] Apr, [facility] [place] [facility] [address] [id number] [place] [address] Apr, [facility] [place] [facility] [address] [id number] [place] [address] Apr, [facility] [place] [facility] [address] [id number] [place] [address] Apr, [facility] [place] [facility] [address] [id number] [place] [address] Apr, [facility] [place] [facility] [address] [id number] [place] [address] Apr, [facility] [place] [facility] [address] [id number] [place] [address] Apr, [facility] [place] [facility] [address] [id number] [place] [address] Apr, [facility] [place] [facility] [address] [id number] [place] [address] Apr, [facility] [place] [facility] [address] [id number] [place] [address] Apr, [facility] [place] [facility] [address] [id number] [place] [address] Apr, [facility] [place] [facility] [address] [id number] [place] [address] Mar, [facility] [place] [facility] [address] [id number] [place] [address] Mar, [facility] [place] [facility] [address] [id number] [place] [address] Feb, [facility] [place] [facility] [address] [id number] [place] [address] Feb, [facility] [place] [facility] [address] [id number] [place] [address] Feb, [facility] [place] [facility] [address] [id number] [place] [address] Feb, [facility] [place] [facility] [address] [id number] [place] [address] Feb, [facility] [place] [facility] [address] [id number] [place] [address] Feb, [facility] [place] [facility] [address] [id number] [place] [address] Feb, [facility] [place] [facility] [address] [id number] [place] [address] Feb, [facility] [place] [facility] [address] [id number] [place] [address] Feb, [facility] [place] [facility] [address] [id number] [place] [address] Feb, [facility] [place] [facility] [address] [id number] [place] [address] Jan, [facility] [place] [facility] [address] [id number] [place] [address] Jan, [facility] [place] [facility] [address] [id number] [place] [address] Jan, [facility] [place] [facility] [address] [id number] [place] [address] Jan, [facility] [place] [facility] [address] [id number] [place] [address] Jan, [facility] [place] [facility] [address] [id number] [place] [address] Jan, [facility] [place] [facility] [address] [id number] [place] [address] Jan, [facility] [place] [facility] [address] [id number] [place] [address] Jan, [facility] [place] [facility] [address] [id number] [place] [address] 16 Jan, 2014 [facility] [place] [facility] [address] [id number] [place] [address] Jan, [facility] [place] [facility] [address] [id number] [place] [address] Jan, [facility] [place] [facility] [address] [id number] [place] [address] Dec, 2013 [facility] [place] [facility] [address] [id number] [place] [address] Dec, [facility] [place] [facility] [address] [id number] [place] [address] Dec, [facility] [place] [facility] [address] [id number] [place] [address] Dec, [facility] [place] [facility] [address] [id number] [place] [address] 18 Dec, 2013 [facility] [place] [facility] [address] [id number] [place] [address] 18 Dec, 2013 [facility] [place] [facility] [address] [id number], [place] [address] Dec, [facility] [place] [facility] [address] [id number], [place] [address] Dec, [facility] [place] [facility] [address] [id number], [place] [address] Nov, [facility] [place] [facility] [address] [id number] [place] [address] Nov, [facility] [place] [facility] [address] [id number] [place] [address] Nov, [facility] [place] [facility] [address] [id number], [place] [address] Nov, [facility] [place] [facility] [address] [id number], [place] [address] Nov, [facility] [place] [facility] [address] [id number] [place] [address] Nov, [facility] [place] [facility] [address] [id number] [place] [address] Nov, [facility] [place] [facility] [address] [id number] [place] [address] Nov, [facility] [place] [facility] [address] [id number] [place] [address] Oct, [facility] [place] [facility] [address] [id number] [place] [address] Oct, [facility] [place] [facility] [address] [id number] [place] [address] Oct, [facility] [place] [facility] [address] [facility] [id number] [place] [address] Oct, [facility] [place] [facility] [address] [id number] [place] [address] Sep, [facility] [place] [facility] [address] [id number] [place] [address] Sep, [facility] [place] [facility] [address] [facility] [id number] [place] [address] Sep, [facility] [place] [facility] [address] [id number] [place] [address] Sep, [facility] [place] [facility] [address] [id number], [place] [address] Sep, [facility] [place] [facility] [address] [id number] [place] [address] Sep, [facility] [place] [facility] [address] [facility] [id number] [place] [address] Sep, [facility] [place] [facility] [address] [facility] [id number] [place] [address] Sep, [facility] [place] [facility] [address] [id number] [place] [address] August, [facility] [place] [facility] [address] [id number] [place] [address] August, [facility] [place] [facility] [address] [id number] [place] [address] August, [facility] [place] [facility] [address] [id number] [place] [address] August, [facility] [place] [facility] [address] [id number] [place] [address] August, [facility] [place] [facility] [address] [id number] [place] [address] August, [facility] [place] [facility] [address] [id number] [place] [address] August, [facility] [place] [facility] [address] [id number] [place] [address] August, [facility] [place] [facility] [address] [id number] [place] [address] August, [facility] [place] [facility] [address] [id number] [place] [address] August, [facility] [place] [facility] [address] [id number] [place] [address] Jul, [facility] [place] [facility] [address] [id number] [place] [address] Jul, [facility] [place] [facility] [address] [id number] [place] [address] Jul, [facility] [place] [facility] [address] [id number] [place] [address] Jul, [facility] [place] [facility] [address] [id number] [place] [address] Jul, [facility] [place] [facility] [address] [id number] [place] [address] Jul, [facility] [place] [facility] [address] [id number] [place] [address] Jul, [facility] [place] [facility] [address] [id number] [place] [address] Jul, [facility] [place] [facility] [address] [facility] [id number] [place] [address] Jun, [facility] [place] [facility] [address] [id number] [place] [address] Jun, [facility] [place] [facility] [address] [id number] [place] [address] Jun, [facility] [place] [facility] [address] [facility] [id number] [place] [address] Jun, [facility] [place] [facility] [address] [facility] [id number] [place] [address] Jun, [facility] [place] [facility] [address] [id number] [place] [address] Jun, [facility] [place] [facility] [address] [facility] [id number] [place] [address] May, [facility] [place] [facility] [address] [facility] [id number] [place] [address] May, [facility] [place] [facility] [address] [facility] [id number] [place] [address] May, [facility] [place] [facility] [address] [id number] [place] [address] May, [facility] [place] [facility] [address] [id number] [place] [address] May, [facility] [place] [facility] [address] [facility] [id number] [place] [address] May, [facility] [place] [facility] [address] [facility] [id number] [place] [address] May, [facility] [place] [facility] [address] [id number] [place] [address] Apr, [facility] [address] [id number] [place] [address] Apr, [facility] [place] [facility] [address] [id number] [place] [address] Apr, [facility] [place] [facility] [address] [id number] [place] [address] Apr, [facility] [place] [facility] [address] [id number] [place] [address] Apr, [facility] [place] [facility] [address] [id number] [place] [address] Apr, [facility] [place] [facility] [address] [id number] [place] [address] Mar, [facility] [place] [facility] [address] [id number] [place] [address] Mar, [facility] [address] [id number] [place] [address] Mar, [facility] [place] [facility] [address] [id number] [place] [address] Mar, [facility] [place] [facility] [address] [id number] [place] [address] Mar, [facility] [place] [facility] [address] [id number] [place] [address] 19 Mar, 2013 [facility] [place] [facility] [address] [id number] [place] [address] 16 Mar, 2013 [facility] [place] [facility] [address] [id number] [place] [address] 16 Mar, 2013 [facility] [place] [facility] [address] [id number] [place] [address] 12 Mar, 2013 [facility] [place] [facility] [address] [id number] [place] [address] Mar, [facility] [place] [facility] [address] [id number] [place] [address] Feb, [facility] [place] [facility] [address] [id number] [place] [address] Feb, [facility] [place] [facility] [address] [id number] [place] [address] Feb, [facility] [place] [facility] [address] [id number] [place] [address] Feb, [facility] [place] [facility] [address] [id number] [place] [address] Feb, [facility] [place] [facility] [address] [id number] [place] [address] Feb, [facility] [place] [facility] [address] [id number] [place] [address] Feb, [facility] [place] [facility] [address] [id number], [place] [address] Feb, [facility] [place] [facility] [address] [id number] [place] [address] Feb, [facility] [place] [facility] [address] [id number], [place] [address] Feb, [facility] [place] [facility] [address] [id number], [place] [address] Jan, [facility] [place] [facility] [address] [id number], [place] [address] Jan, [facility] [place] [facility] [address] [id number], [place] [address] Jan, [facility] [place] [facility] [address] [id number], [place] [address] Jan, [facility] [place] [facility] [address] [id number], [place] [address] Jan, [facility] [place] [facility] [address] [id number] [place] [address] Jan, [facility] [address] [id number] [place] [address] Jan, [facility] [place] [facility] [address] [id number] [place] [address] Jan, [facility] [place] [facility] [address] [id number] [place] [address] Jan, [facility] [place] [facility] [address] [id number] [place] [address] Dec, [facility] [place] [facility] [address] [id number] [place] [address] Dec, [facility] [place] [facility] [address] [id number] [place] [address] Dec, [facility] [address] [id number] [place] [address] Dec, [facility] [place] [facility] [address] [id number] [place] [address] Nov, [facility] [place] [facility] [address] [id number] [place] [address] Nov, [facility] [place] [facility] [address] [id number] [place] [address] Nov, [facility] [place] [facility] [address] [id number] [place] [address] Nov, [facility] [place] [facility] [address] [id number] [place] [address] Nov, [facility] [place] [facility] [address] [id number] [place] [address] Nov, [facility] [place] [facility] [address] [id number] [place] [address] Oct, [facility] [place] [facility] [address] [id number] [place] [address] Oct, [facility] [place] [facility] [address] [id number] [place] [address] Oct, [facility] [address] [id number] [place] [address] Oct, [facility] [place] [facility] [address] [id number] [place] [address] 27 Sep, 2012 [facility] [place] [facility] [address] [id number] [place] [address] Sep, [facility] [address] [id number] [place] [address] 17 Sep, 2012 [facility] [place] [facility] [address] [id number] [place] [address] 14 Sep, 2012 [facility] [address] [id number] [place] [address] Sep, [facility] [address] [id number] [place] [address] August, [facility] [address] [id number] [place] [address] August, [facility] [address] [id number] [place] [address] Jul, [facility] [place] [facility] [address] [id number] [place] [address] Jul, [facility] [place] [facility] [address] [id number] [place] [address] 15 Jul, 2012 [facility] [place] [facility] [address] [id number] [place] [address] 09 Jul, 2012 [facility] [place] [facility] [address] [id number] [place] [address] 08 Jul, 2012 [facility] [place] [facility] [address] [id number] [place] [address] 26 Jun, 2012 [facility] [place] [facility] [address] [id number] [place] [address] Jun, [facility] [address] [id number] [place] [address] 15 Jun, 2012 [facility] [address] [id number] [place] [address] Jun, [facility] [address] [facility] [id number] [place] [address] Jun, [facility] [address] [id number] [place] [address] May, [facility] [address] [id number] [place] [address] May, [facility] [address] [id number] [place] [address] May, [facility] [address] [id number] [place] [address] May, [facility] [place] [facility] [address] [id number] [place] [address] May, [facility] [address] [id number] [place] [address] 14 May, 2012 [facility] [address] [facility] [id number] [place] [address] May, [facility] [place] [facility] [address] [facility] [id number] [place] [address] 08 May, 2012 [facility] [place] [facility] [address] [id number] [place] [address] May, [facility] [place] [facility] [address] [id number] [place] [address] Apr, [facility] [place] [facility] [address] [id number] [place] [address] Apr, [facility] [place] [facility] [address] [id number], [place] [address] Apr, [facility] [place] [facility] [address] [id number] [place] [address] Apr, [facility] [address] [id number] [place] [address] Apr, [facility] [place] [address] [id number] [place] [address] Mar, [facility] [address] [id number] [place] [address] Mar, [facility] [address] [id number] [place] [address] Mar, [facility] [address] [id number] [place] [address] Mar, [facility] [address] [id number] [place] [address] Mar, [facility] [address] [id number] [place] [address] Mar, [facility] [address] [id number] [place] [address] Mar, [facility] [address] [id number] [place] [address] Mar, [facility] [address] [id number] [place] [address] Mar, [facility] [address] [id number] [place] [address] Mar, [facility] [address] [id number] [place] [address] Feb, [facility] [place] [facility] [address] [id number] [place] [address] Feb, [facility] [address] [id number] [place] [address] 29 Feb, 2012 [facility] [address] [id number] [place] [address] Feb, [facility] [place] [facility] [address] [id number] [place] [address] Feb, [facility] [place] [facility] [address] [id number] [place] [address] Feb, [facility] [place] [facility] [address] [id number] [place] [address] Feb, [facility] [place] [facility] [address] [id number] [place] [address] Feb, [facility] [place] [facility] [address] [id number] [place] [address] Feb, [facility] [place] [facility] [address] [id number] [place] [address] 16 Feb, 2012 [facility] [place] [facility] [address] [id number] [place] [address] Feb, [facility] [place] [facility] [address] [id number] [place] [address] Feb, [facility] [place] [facility] [address] [id number] [place] [address] Feb, [facility] [place] [facility] [address] [id number] [place] [address] Feb, [facility] [place] [facility] [address] [id number], [place] [address] Feb, [facility] [place] [facility] [address] [id number], [place] [address] Feb, [facility] [place] [facility] [address] [id number] [place] [address] Feb, [facility] [place] [facility] [address] [id number] [place] [address] Feb, [facility] [place] [facility] [address] [id number] [place] [address] 31 Jan, 2012 [facility] [place] [facility] [address] [id number] [place] [address] Jan, [facility] [place] [facility] [address] [id number] [place] [address] Jan, [facility] [place] [facility] [address] [id number] [place] [address] Jan, [facility] [place] [facility] [address] [id number] [place] [address] Jan, [facility] [place] [facility] [address] [id number] [place] [address] Jan, [facility] [place] [facility] [address] [id number] [place] [address] Jan, [facility] [place] [facility] [address] [id number] [place] [address] Jan, [facility] [place] [facility] [address] [id number] [place] [address] Jan, [facility] [place] [facility] [address] [id number] [place] [address] Jan, [facility] [place] [facility] [address] [id number] [place] [address] Dec, [facility] [place] [facility] [address] [id number] [place] [address] Dec, [facility] [place] [facility] [address] [id number] [place] [address] Dec, [facility] [place] [facility] [address] [id number] [place] [address] Dec, [facility] [place] [facility] [address] [id number] [place] [address] Nov, [facility] [place] [facility] [address] [id number] [place] [address] Nov, [facility] [place] [facility] [address] [id number] [place] [address] Nov, [facility] [place] [facility] [address] [id number] [place] [address] Nov, [facility] [place] [facility] [address] [id number] [place] [address] Nov, [facility] [place] [facility] [address] [id number] [place] [address] Nov, [facility] [place] [facility] [address] [id number] [place] [address] Oct, [facility] [place] [facility] [address] [id number] [place] [address] Oct, [facility] [place] [facility] [address] [id number] [place] [address] Oct, [facility] [place] [facility] [address] [id number] [place] [address] Oct, [facility] [place] [facility] [address] [id number] [place] [address] Oct, [facility] [place] [facility] [address] [id number] [place] [address] Sep, [facility] [place] [facility] [address] [id number] [place] [address] Sep, [facility] [place] [facility] [address] [id number] [place] [address] Sep, [facility] [place] [facility] [address] [id number], [place] [address] Sep, [facility] [place] [facility] [address] [id number] [place] [address] Sep, [facility] [place] [facility] [address] [id number] [place] [address] August, [facility] [place] [facility] [address] [id number] [place] [address] August, [facility] [place] [facility] [address] [id number], [place] [address] August, [facility] [address] [id number] [place] [address] August, [facility] [place] [facility] [address] [id number] [place] [address] Jul, [facility] [address] [id number] [place] [address] 24 Jul, 2011 [facility] [address] [id number] [place] [address] Jul, [facility] [address] [id number] [place] [address] Jul, [facility] [address] [id number] [place] [address] Jul, [facility] [address] [id number] [place] [address] Jul, [facility] [address] [id number] [place] [address] Jul, [facility] [address] [id number] [place] [address] Jul, [facility] [address] [id number] [place] [address] Jul, [facility] [address] [id number] [place] [address] Jul, [facility] [place] [facility] [address] [id number] [place] [address] 05 Jul, 2011 [facility] [place] [facility] [address] [id number] [place] [address] Jul, [facility] [place] [facility] [address] [id number] [place] [address] Jul, [facility] [place] [facility] [address] [id number] [place] [address] Jul, [facility] [place] [facility] [address] [id number] [place] [address] 28 Jun, 2011 [facility] [place] [facility] [address] [id number] [place] [address] 27 Jun, 2011 [facility] [place] [facility] [address] [id number] [place] [address] 20 Jun, 2011 [facility] [place] [facility] [address] [id number] [place] [address] 16 Jun, 2011 [facility] [place] [facility] [address] [id number] [place] [address] 27 May, 2011 [facility] [place] [facility] [address] [id number] [place] [address] 16 May, 2011 [facility] [place] [facility] [address] [id number] [place] [address] May, [facility] [place] [facility] [address] [id number] [place] [address] Apr, [facility] [place] [facility] [address] [id number] [place] [address] 18 Apr, 2011 [facility] [place] [facility] [address] [id number] [place] [address] Apr, [facility] [place] [facility] [address] [id number] [place] [address] Apr, [facility] [place] [facility] [address] [id number] [place] [address] Apr, [facility] [place] [facility] [address] [id number] [place] [address] Mar, [facility] [place] [facility] [address] [id number] [place] [address] Mar, [facility] [place] [facility] [address] [id number] [place] [address] Mar, [facility] [place] [facility] [address] [id number], [place] [address] 20 Mar, 2011 [facility] [place] [facility] [address] [id number] [place] [address] 16 Mar, 2011 [facility] [place] [facility] [address] [id number] [place] [address] 09 Mar, 2011 [facility] [place] [facility] [address] [id number] [place] [address] 05 Mar, 2011 [facility] [place] [facility] [address] [id number], [place] [address] 29 Feb, 2011 [facility] [place] [facility] [address] [id number] [place] [address] Feb, [facility] [place] [facility] [address] [id number] [place] [address] Feb, [facility] [place] [facility] [address] [id number] [place] [address] Feb, [facility] [place] [facility] [address] [id number], [place] [address] 16 Feb, 2011 [facility] [place] [facility] [address] [id number], [place] [address] 14 Feb, 2011 [facility] [place] [facility] [address] [id number] [place] [address] Feb, [facility] [place] [facility] [address] [id number], [place] [address] 31 Jan, 2011 [facility] [place] [facility] [address] [id number], [place] [address] 31 Jan, 2011 [facility] [place] [facility] [address] [id number] [place] [address] 31 Jan, 2011 [facility] [place] [facility] [address] [id number], [place] [address] 18 Jan, 2011 [facility] [place] [facility] [address] [id number], [place] [address] 17 Jan, 2011 [facility] [place] [facility] [address] [id number] [place] [address] 17 Jan, 2011 [facility] [facility] [address] [id number] [place] [address] 17 Jun, 2010 [facility] [address] [id number] [place] [address] 30 Mar, 2010 [facility] [address] [id number] [place] [address] 20 Mar, 2010 [facility] [address] [id number] [place] [address] 14 Mar, 2010 [facility] [address] [id number] [place] [address] 14 Mar, 2010 [facility] [address] [id number] [place] [address] 13 Mar, 2010 [facility] [address] [facility] [id number] [place] [address] 07 Mar, 2010 [facility] [address] [id number] [place] [address] 02 Mar, 2010 [facility] [address] [facility] [id number] [place] [address] 01 Mar, 2010 [facility] [address] [facility] [id number] [place] [address] 30 Feb, 2010 [facility] [address] [id number] [place] [address] 29 Feb, 2010 [facility] [address] [id number] [place] [address] 17 Feb, 2010 [facility] [address] [id number] [place] [address] 17 Feb, 2010 [facility] [address] [facility] [id number] [place] [address] 16 Feb, 2010 [facility] [address] [facility] [id number] [place] [address] Feb, [facility] [place] [facility] [address] [id number] [place] [address] Feb, [facility] [place] [facility] [address] [id number] [place] [address] Feb, [facility] [place] [facility] [address] [id number] [place] [address] Jan, [facility] [place] [facility] [address] [id number] [place] [address] Jan, [facility] [place] [facility] [address] [id number] [place] [address] Jan, [facility] [place] [facility] [address] [id number] [place] [address] Jan, [facility] [place] [facility] [address] [facility] [id number] [place] [address] 29 Mar, 2009 [facility] [place] [facility] [address] [id number], [place] [address] 22 Mar, 2009 [facility] [place] [facility] [address] [facility] [id number], [place] [address] Mar, [facility] [place] [facility] [address] [facility] [id number], [place] [address] 19 Mar, 2009 [facility] [place] [facility] [address] [facility] [id number], [place] [address] 14 Mar, 2009 [facility] [place] [facility] [address] [facility] [id number], [place] [address] 10 Mar, 2009 [facility] [place] [facility] [address] [facility] [id number], [place] [address] 18 Feb, 2009 [facility] [place] [facility] [address] [facility] [id number], [place] [address] 18 Feb, 2009 [facility] [place] [facility] [address] [facility] [id number], [place] [address] 13 Jan, 2009 [facility] [place] [facility] [address] [id number], [place] [address] Sep, [facility] [address] [facility] [id number] [place] [address] May, IMMUNIZATIONS No Known Immunizations SOCIAL HISTORY Never Assessed REASON FOR VISIT EMR-[facility] PLAN OF CARE VITAL SIGNS MEDICATIONS Unknown [...] Surgical History Left ear surgery Hospitalization History [facility] in [place]- Spontaneous Pneumothorax Hospitalization History [facility]- Colon resection Hospitalization History via [facility] department - diarrhea/ couldnt urinate nov 2017
--- OUTSIDE RECORDS SUMMARY | 2018-10-15 01:14 | XMS REPORT ---
Author Author Migration, Doctor Organization [facility] Address Unknown Phone Unavailable Care Team Providers Care Fashion Buyer Name Role Phone Migration, Doctor Unavailable Unavailable PROBLEMS Type Condition ICD9-CM Code EAM99-ZY Code Onset Dates Condition Status SNOMED Code Problem Constipation K59.00 Active 25847510 Problem Chronic pain G89.29 Active 03745551 Problem Hyperlipidemia E78.5 Active 60415693 Problem Insomnia G47.00 Active 222563344 Problem Chronic kidney disease, stage III (moderate) N18.3 Active 568083035 Problem Anxiety F41.9 Active 06565001 Problem Vision loss H54.7 Active 887237662 Problem HTN (hypertension) I10 Active 15151597 Problem Thoracic back pain, unspecified back pain laterality, unspecified chronicity M54.6 Active 542718562 Problem Vitamin D deficiency E55.9 Active 51926211 Problem Environmental allergies Z91.09 Active 489832159 Problem Primary insomnia F51.01 Active 2576265 ALLERGIES No Information ENCOUNTERS Encounter Location Date Diagnosis [place] [id number] [place] [address] Jun, Anxiety F41.9 and Thoracic back pain, unspecified back pain laterality, unspecified chronicity M54.6 [place] [id number] [place] [address] Jun, Thoracic back pain, unspecified back pain laterality, unspecified chronicity M54.6 [place] [address] [address] Jun, Anxiety F41.9 and Thoracic back pain, unspecified back pain laterality, unspecified chronicity M54.6 [place] [id number] [place] [address] May, [place] [id number] [place] [address] May, [place] [id number] [place] [address] May, [place] [address] [address] 06 May, 2018 Anxiety F41.9 and Encounter for medication monitoring Z51.81 [place] [address] [address] May, Anxiety F41.9 and Thoracic back pain, unspecified back pain laterality, unspecified chronicity M54.6 [place] [address] [address] Apr, Hyperlipidemia 272.4 [place] [address] [address] Apr, Chronic pain G89.29 ; Anxiety F41.9 ; Cervical radiculopathy M54.12 and Vision loss H54.7 [place] [id number] [place] [address] Apr, [place] [address] [address] Apr, Anxiety F41.9 and Thoracic back pain, unspecified back pain laterality, unspecified chronicity M54.6 [place] [address] [address] 17 Mar, 2018 [place] [address] [address] 10 Mar, 2018 Anxiety F41.9 and Thoracic back pain, unspecified back pain laterality, unspecified chronicity M54.6 [place] [address] [address] 14 Feb, 2018 Anxiety F41.9 and Thoracic back pain, unspecified back pain laterality, unspecified chronicity M54.6 [place] [id number] [place] [address] Feb, Thoracic back pain, unspecified back pain laterality, unspecified chronicity M54.6 [facility] [id number] [place] [address] Jan, [facility] [id number] [place] [address] Jan, Anxiety F41.9 and Thoracic back pain, unspecified back pain laterality, unspecified chronicity M54.6 [facility] [id number] [place] [address] 19 Dec, 2017 Diarrhea of presumed infectious origin R19.7 [facility] [id number] [place] [address] 19 Dec, 2017 Diarrhea of presumed infectious origin R19.7 [facility] [id number] [place] [address] 18 Dec, 2017 Thoracic back pain, unspecified back pain laterality, unspecified chronicity M54.6 [facility] [id number] [place] [address] 17 Dec, 2017 [facility] [id number] [place] [address] 17 Dec, 2017 Anxiety F41.9 and Thoracic back pain, unspecified back pain laterality, unspecified chronicity M54.6 [facility] [id number] [place] [address] Dec, Diarrhea of presumed infectious origin R19.7 [facility] [id number] [place] [address] Dec, [facility] [id number] [place] [address] Dec, Anxiety F41.9 and Thoracic back pain, unspecified back pain laterality, unspecified chronicity M54.6 [facility] [id number] [place] [address] Dec, Anxiety F41.9 and Thoracic back pain, unspecified back pain laterality, unspecified chronicity M54.6 [facility] [employer] [address] [place] [id number] Dec, Diarrhea of presumed infectious origin R19.7 ; Anxiety F41.9 ; Thoracic back pain, unspecified back pain laterality, unspecified chronicity M54.6 and HTN (hypertension) I10 [place] [id number] [place] [address] Dec, Anxiety F41.9 [facility] [address] [place] [id number] Dec, Anxiety F41.9 ; Diarrhea of presumed infectious origin R19.7 ; Generalized abdominal pain R10.84 and Localized edema R60.0 [place] [address] [address] Nov, [facility] [employer] [address] [place] [id number] Nov, Anxiety F41.9 ; Urinary retention R33.9 ; Diarrhea of presumed infectious origin R19.7 ; Weakness R53.1 ; Acute kidney failure, unspecified N17.9 ; Chronic kidney disease, stage III (moderate) N18.3 and Thoracic back pain, unspecified back pain laterality, unspecified chronicity M54.6 [place] [id number] [place] [address] Oct, Thoracic back pain, unspecified back pain laterality, unspecified chronicity M54.6 and Anxiety F41.9 [place] [id number] [place] [address] Sep, Thoracic back pain, unspecified back pain laterality, unspecified chronicity M54.6 and Anxiety F41.9 [place] [address] [address] Sep, Thoracic back pain, unspecified back pain laterality, unspecified chronicity M54.6 ; Anxiety F41.9 and Encounter for medication monitoring Z51.81 [place] [address] [address] August, [facility] [id number] [place] [address] August, Thoracic back pain, unspecified back pain laterality, unspecified chronicity M54.6 and Anxiety F41.9 [facility] [id number] [place] [address] August, Hyperlipidemia E78.5 and HTN (hypertension) I10 [facility] [id number] [place] [address] August, [facility] [id number] [place] [address] August, Medicare welcome exam Z00.00 ; Chronic kidney failure N18.9 ; Anxiety F41.9 ; Chronic pain G89.29 ; Insomnia G47.00 ; Hyperlipidemia E78.5 ; HTN (hypertension) I10 and Thoracic back pain, unspecified back pain laterality, unspecified chronicity M54.6 [facility] [id number] [place] [address] Jul, [facility] [id number] [place] [address] Jul, [facility] [id number] [place] [address] Jul, [facility] [id number] [place] [address] Jul, Anxiety F41.9 [facility] [id number] [place] [address] Jul, Thoracic back pain, unspecified back pain laterality, unspecified chronicity M54.6 and Anxiety F41.9 [facility] [id number] [place] [address] Jun, Thoracic back pain, unspecified back pain laterality, unspecified chronicity M54.6 and Anxiety F41.9 [place] [id number] [address] 12 May, 2017 Thoracic back pain, unspecified back pain laterality, unspecified chronicity M54.6 and Anxiety F41.9 [place] [id number] [place] [address] Apr, Thoracic back pain, unspecified back pain laterality, unspecified chronicity M54.6 and Anxiety F41.9 [place] [id number] [place] [address] Mar, [place] [id number] [place] [address] Mar, Thoracic back pain, unspecified back pain laterality, unspecified chronicity M54.6 and Anxiety F41.9 [place] [id number] [place] [address] 14 Mar, 2017 Thoracic back pain, unspecified back pain laterality, unspecified chronicity M54.6 ; HTN (hypertension) I10 ; Hyperlipidemia E78.5 and Anxiety F41.9 [place] [id number] [place] [address] Feb, Thoracic back pain, unspecified back pain laterality, unspecified chronicity M54.6 and Anxiety F41.9 [place] [id number] [place] [address] Nov, [place] [id number] [place] [address] Oct, [place] [id number] [place] [address] Oct, Thoracic back pain, unspecified back pain laterality, unspecified chronicity M54.6 [place] [id number] [place] [address] Oct, HTN (hypertension) I10 ; Constipation K59.00 ; Hyperlipidemia E78.5 ; Thoracic back pain, unspecified back pain laterality, unspecified chronicity M54.6 ; Chronic pain G89.29 ; Anxiety F41.9 ; Chronic kidney failure N18.9 ; Environmental allergies Z91.09 ; Vitamin D deficiency E55.9 and Primary insomnia F51.01 [facility] [id number] [place] [address] Sep, Anxiety F41.9 [facility] [id number] [place] [address] Sep, [facility] [id number] [place] [address] August, Anxiety F41.9 [facility] [id number] [place] [address] August, [facility] [id number] [place] [address] Jul, Anxiety F41.9 [facility] [id number] [place] [address] Jul, [facility] [id number] [place] [address] Jun, Anxiety F41.9 [facility] [id number] [place] [address] Jun, [facility] [id number] [place] [address] May, [facility] [id number] [place] [address] May, [facility] [id number] [place] [address] May, [facility] [id number] [place] [address] Apr, [facility] [id number] [place] [address] Apr, [facility] [id number] [place] [address] Apr, Anxiety F41.9 [facility] [id number] [place] [address] Apr, Anxiety F41.9 [facility] [id number] [place] [address] Apr, [facility] [id number] [place] [address] Mar, HTN (hypertension) I10 ; Tremor R25.1 ; Hypercholesterolemia E78.0 ; Constipation K59.00 ; Chronic pain G89.29 ; Hyperlipidemia E78.5 ; Insomnia G47.00 ; Anxiety F41.9 and Thoracic back pain, unspecified back pain laterality, unspecified chronicity M54.6 [facility] [id number] [place] [address] Mar, Tremor R25.1 ; HTN (hypertension) I10 ; Hypercholesterolemia E78.0 ; Constipation K59.00 ; Chronic pain G89.29 ; Hyperlipidemia E78.5 ; Insomnia G47.00 ; Anxiety F41.9 and Thoracic back pain, unspecified back pain laterality, unspecified chronicity M54.6 [facility] [id number] [place] [address] Mar, [facility] [id number] [place] [address] Mar, [facility] [id number] [place] [address] Feb, [facility] [id number] [place] [address] Jan, [facility] [id number] [place] [address] Jan, [facility] [id number] [place] [address] 15 Dec, 2015 [facility] [id number] [place] [address] Nov, [facility] [address], [place] [address] Nov, [facility] [id number] [place] [address] Oct, Anxiety F41.9 [facility] [id number] [place] [address] Oct, Chronic pain G89.29 [facility] [id number] [place] [address] Sep, [facility] [id number] [place] [address] Sep, [facility] [id number] [place] [address] Sep, [facility] [id number] [place] [address] Sep, [facility] [id number] [place] [address] Sep, Chronic pain syndrome G89.4 [facility] [id number] [place] [address] Sep, HTN (hypertension) I10 ; Chronic pain G89.29 ; Hypercholesterolemia E78.0 ; Chronic kidney failure N18.9 ; Constipation, unspecified constipation type K59.00 ; Anxiety F41.9 and Thoracic back pain, unspecified back pain laterality, unspecified chronicity M54.6 [facility] [id number] [place] [address] August, Chronic pain syndrome G89.4 [facility] [id number] [place] [address] August, Chronic pain syndrome G89.4 [facility] [id number] [place] [address] Jul, Anxiety disorder, unspecified F41.9 and Chronic pain syndrome G89.4 [facility] [address], [place] [address] Jul, Insomnia, unspecified G47.00 and Chronic pain syndrome G89.4 [facility] [id number] [place] [address] Jul, Allergic rhinitis J30.9 [facility] [id number] [place] [address] Jul, Constipation, unspecified K59.00 [facility] [id number] [place] [address] Jul, [facility] [id number] [place] [address] Jun, [facility] [id number] [place] [address] Jun, [facility] [id number] [place] [address] Jun, [facility] [id number] [place] [address] Jun, [facility] [id number] [place] [address] Jun, [facility] [id number] [place] [address] Jun, [facility] [id number] [place] [address] May, [facility] [id number] [place] [address] May, [facility] [id number] [place] [address] May, Anxiety F41.9 ; Insomnia G47.00 ; Hyperlipidemia E78.5 ; Chronic pain G89.29 ; HTN (hypertension) I10 ; Environmental allergies V15.09 and Constipation 564.00 [place] [address] [address] Apr, [facility] [id number] [place] [address] Apr, [facility] [address], [place] [address] Apr, [facility] [id number] [place] [address] Mar, [facility] [id number] [place] [address] Mar, [facility] [id number] [place] [address] Mar, [facility] [id number] [place] [address] Feb, [facility] [id number] [place] [address] Feb, [facility] [id number] [place] [address] Feb, [facility] [id number] [place] [address] Jan, HTN (hypertension) I10 ; Constipation K59.00 ; Chronic pain G89.29 ; Hyperlipidemia E78.5 ; Hypercholesterolemia E78.0 ; Insomnia G47.00 and Anxiety F41.9 [facility] [address], [place] [address] Jan, [facility] [address], [place] [address] Dec, [facility] [id number] [place] [address] Nov, [facility] [address], [place] [address] Oct, Chronic kidney disease, unspecified 585.9 ; Chronic pain syndrome 338.4 ; Hyperlipidemia 272.4 and Essential hypertension 401.9 [facility] [address], [place] [address] Oct, Chronic kidney disease 585.9 [facility] [address], [place] [address] 15 Oct, 2014 [facility] [id number] [place] [address] Oct, Chronic kidney disease, unspecified 585.9 ; Hypercalcemia 275.42 ; Hyperlipidemia 272.4 ; Essential hypertension 401.9 ; Chronic pain syndrome 338.4 ; Insomnia 780.52 ; Constipation 564.00 ; Environmental allergies V15.09 and Anxiety 300.00 [facility] [id number] [place] [address] Oct, Chronic kidney disease 585.9 [facility] [id number] [place] [address] Oct, [facility] [id number] [place] [address] Oct, Chronic kidney disease 585.9 and Hyperlipidemia 272.4 [facility] [id number] [place] [address] Oct, [facility] [address], [place] [address] Oct, [facility] [address], [place] [address] Sep, [facility] [address], [place] [address] Sep, [facility] [id number] [place] [address] Sep, Chronic kidney disease 585.9 and Hyperlipidemia 272.4 [facility] [address], [place] [address] Sep, [facility] [place] [facility] [address] [id number] [place] [address] August, [facility] [place] [facility] [address] [id number] [place] [address] August, [facility] [place] [facility] [address] [id number] [place] [address] Jul, [facility] [place] [facility] [address] [id number] [place] [address] Jul, [facility] [place] [facility] [address] [id number] [place] [address] Jun, [facility] [place] [facility] [address] [id number] [place] [address] Jun, [facility] [place] [facility] [address] [id number] [place] [address] Jun, [facility] [place] [facility] [address] [id number] [place] [address] Jun, [facility] [place] [facility] [address] [id number] [place] [address] Jun, [facility] [place] [facility] [address] [id number] [place] [address] Jun, [facility] [place] [facility] [address] [id number] [place] [address] Jun, [facility] [place] [facility] [address] [id number] [place] [address] Jun, [facility] [place] [facility] [address] [id number] [place] [address] May, [facility] [place] [facility] [address] [id number] [place] [address] May, [facility] [place] [facility] [address] [id number] [place] [address] May, [facility] [place] [facility] [address] [id number] [place] [address] May, [facility] [place] [facility] [address] [id number] [place] [address] Apr, [facility] [place] [facility] [address] [id number] [place] [address] Apr, [facility] [place] [facility] [address] [id number] [place] [address] Apr, [facility] [place] [facility] [address] [id number] [place] [address] Apr, [facility] [place] [facility] [address] [id number] [place] [address] Apr, [facility] [place] [facility] [address] [id number] [place] [address] Apr, [facility] [place] [facility] [address] [id number] [place] [address] Apr, [facility] [place] [facility] [address] [id number] [place] [address] Apr, [facility] [place] [facility] [address] [id number] [place] [address] Apr, [facility] [place] [facility] [address] [id number] [place] [address] Apr, [facility] [place] [facility] [address] [id number] [place] [address] Apr, [facility] [place] [facility] [address] [id number] [place] [address] Mar, [facility] [place] [facility] [address] [id number] [place] [address] Mar, [facility] [place] [facility] [address] [id number] [place] [address] Feb, [facility] [place] [facility] [address] [id number] [place] [address] Feb, [facility] [place] [facility] [address] [id number] [place] [address] Feb, [facility] [place] [facility] [address] [id number] [place] [address] Feb, [facility] [place] [facility] [address] [id number] [place] [address] Feb, [facility] [place] [facility] [address] [id number] [place] [address] Feb, [facility] [place] [facility] [address] [id number] [place] [address] Feb, [facility] [place] [facility] [address] [id number] [place] [address] Feb, [facility] [place] [facility] [address] [id number] [place] [address] Feb, [facility] [place] [facility] [address] [id number] [place] [address] Feb, [facility] [place] [facility] [address] [id number] [place] [address] Jan, [facility] [place] [facility] [address] [id number] [place] [address] Jan, [facility] [place] [facility] [address] [id number] [place] [address] Jan, [facility] [place] [facility] [address] [id number] [place] [address] Jan, [facility] [place] [facility] [address] [id number] [place] [address] Jan, [facility] [place] [facility] [address] [id number] [place] [address] Jan, [facility] [place] [facility] [address] [id number] [place] [address] Jan, [facility] [place] [facility] [address] [id number] [place] [address] Jan, [facility] [place] [facility] [address] [id number] [place] [address] 16 Jan, 2014 [facility] [place] [facility] [address] [id number] [place] [address] Jan, [facility] [place] [facility] [address] [id number] [place] [address] Jan, [facility] [place] [facility] [address] [id number] [place] [address] Dec, 2013 [facility] [place] [facility] [address] [id number] [place] [address] Dec, [facility] [place] [facility] [address] [id number] [place] [address] Dec, [facility] [place] [facility] [address] [id number] [place] [address] Dec, [facility] [place] [facility] [address] [id number] [place] [address] 18 Dec, 2013 [facility] [place] [facility] [address] [id number] [place] [address] 18 Dec, 2013 [facility] [place] [facility] [address] [id number], [place] [address] Dec, [facility] [place] [facility] [address] [id number], [place] [address] Dec, [facility] [place] [facility] [address] [id number], [place] [address] Nov, [facility] [place] [facility] [address] [id number] [place] [address] Nov, [facility] [place] [facility] [address] [id number] [place] [address] Nov, [facility] [place] [facility] [address] [id number], [place] [address] Nov, [facility] [place] [facility] [address] [id number], [place] [address] Nov, [facility] [place] [facility] [address] [id number] [place] [address] Nov, [facility] [place] [facility] [address] [id number] [place] [address] Nov, [facility] [place] [facility] [address] [id number] [place] [address] Nov, [facility] [place] [facility] [address] [id number] [place] [address] Oct, [facility] [place] [facility] [address] [id number] [place] [address] Oct, [facility] [place] [facility] [address] [id number] [place] [address] Oct, [facility] [place] [facility] [address] [facility] [id number] [place] [address] Oct, [facility] [place] [facility] [address] [id number] [place] [address] Sep, [facility] [place] [facility] [address] [id number] [place] [address] Sep, [facility] [place] [facility] [address] [facility] [id number] [place] [address] Sep, [facility] [place] [facility] [address] [id number] [place] [address] Sep, [facility] [place] [facility] [address] [id number], [place] [address] Sep, [facility] [place] [facility] [address] [id number] [place] [address] Sep, [facility] [place] [facility] [address] [facility] [id number] [place] [address] Sep, [facility] [place] [facility] [address] [facility] [id number] [place] [address] Sep, [facility] [place] [facility] [address] [id number] [place] [address] August, [facility] [place] [facility] [address] [id number] [place] [address] August, [facility] [place] [facility] [address] [id number] [place] [address] August, [facility] [place] [facility] [address] [id number] [place] [address] August, [facility] [place] [facility] [address] [id number] [place] [address] August, [facility] [place] [facility] [address] [id number] [place] [address] August, [facility] [place] [facility] [address] [id number] [place] [address] August, [facility] [place] [facility] [address] [id number] [place] [address] August, [facility] [place] [facility] [address] [id number] [place] [address] August, [facility] [place] [facility] [address] [id number] [place] [address] August, [facility] [place] [facility] [address] [id number] [place] [address] Jul, [facility] [place] [facility] [address] [id number] [place] [address] Jul, [facility] [place] [facility] [address] [id number] [place] [address] Jul, [facility] [place] [facility] [address] [id number] [place] [address] Jul, [facility] [place] [facility] [address] [id number] [place] [address] Jul, [facility] [place] [facility] [address] [id number] [place] [address] Jul, [facility] [place] [facility] [address] [id number] [place] [address] Jul, [facility] [place] [facility] [address] [id number] [place] [address] Jul, [facility] [place] [facility] [address] [facility] [id number] [place] [address] Jun, [facility] [place] [facility] [address] [id number] [place] [address] Jun, [facility] [place] [facility] [address] [id number] [place] [address] Jun, [facility] [place] [facility] [address] [facility] [id number] [place] [address] Jun, [facility] [place] [facility] [address] [facility] [id number] [place] [address] Jun, [facility] [place] [facility] [address] [id number] [place] [address] Jun, [facility] [place] [facility] [address] [facility] [id number] [place] [address] May, [facility] [place] [facility] [address] [facility] [id number] [place] [address] May, [facility] [place] [facility] [address] [facility] [id number] [place] [address] May, [facility] [place] [facility] [address] [id number] [place] [address] May, [facility] [place] [facility] [address] [id number] [place] [address] May, [facility] [place] [facility] [address] [facility] [id number] [place] [address] May, [facility] [place] [facility] [address] [facility] [id number] [place] [address] May, [facility] [place] [facility] [address] [id number] [place] [address] Apr, [facility] [address] [id number] [place] [address] Apr, [facility] [place] [facility] [address] [id number] [place] [address] Apr, [facility] [place] [facility] [address] [id number] [place] [address] Apr, [facility] [place] [facility] [address] [id number] [place] [address] Apr, [facility] [place] [facility] [address] [id number] [place] [address] Apr, [facility] [place] [facility] [address] [id number] [place] [address] Mar, [facility] [place] [facility] [address] [id number] [place] [address] Mar, [facility] [address] [id number] [place] [address] Mar, [facility] [place] [facility] [address] [id number] [place] [address] Mar, [facility] [place] [facility] [address] [id number] [place] [address] Mar, [facility] [place] [facility] [address] [id number] [place] [address] 19 Mar, 2013 [facility] [place] [facility] [address] [id number] [place] [address] 16 Mar, 2013 [facility] [place] [facility] [address] [id number] [place] [address] 16 Mar, 2013 [facility] [place] [facility] [address] [id number] [place] [address] 12 Mar, 2013 [facility] [place] [facility] [address] [id number] [place] [address] Mar, [facility] [place] [facility] [address] [id number] [place] [address] Feb, [facility] [place] [facility] [address] [id number] [place] [address] Feb, [facility] [place] [facility] [address] [id number] [place] [address] Feb, [facility] [place] [facility] [address] [id number] [place] [address] Feb, [facility] [place] [facility] [address] [id number] [place] [address] Feb, [facility] [place] [facility] [address] [id number] [place] [address] Feb, [facility] [place] [facility] [address] [id number] [place] [address] Feb, [facility] [place] [facility] [address] [id number], [place] [address] Feb, [facility] [place] [facility] [address] [id number] [place] [address] Feb, [facility] [place] [facility] [address] [id number], [place] [address] Feb, [facility] [place] [facility] [address] [id number], [place] [address] Jan, [facility] [place] [facility] [address] [id number], [place] [address] Jan, [facility] [place] [facility] [address] [id number], [place] [address] Jan, [facility] [place] [facility] [address] [id number], [place] [address] Jan, [facility] [place] [facility] [address] [id number], [place] [address] Jan, [facility] [place] [facility] [address] [id number] [place] [address] Jan, [facility] [address] [id number] [place] [address] Jan, [facility] [place] [facility] [address] [id number] [place] [address] Jan, [facility] [place] [facility] [address] [id number] [place] [address] Jan, [facility] [place] [facility] [address] [id number] [place] [address] Dec, [facility] [place] [facility] [address] [id number] [place] [address] Dec, [facility] [place] [facility] [address] [id number] [place] [address] Dec, [facility] [address] [id number] [place] [address] Dec, [facility] [place] [facility] [address] [id number] [place] [address] Nov, [facility] [place] [facility] [address] [id number] [place] [address] Nov, [facility] [place] [facility] [address] [id number] [place] [address] Nov, [facility] [place] [facility] [address] [id number] [place] [address] Nov, [facility] [place] [facility] [address] [id number] [place] [address] Nov, [facility] [place] [facility] [address] [id number] [place] [address] Nov, [facility] [place] [facility] [address] [id number] [place] [address] Oct, [facility] [place] [facility] [address] [id number] [place] [address] Oct, [facility] [place] [facility] [address] [id number] [place] [address] Oct, [facility] [address] [id number] [place] [address] Oct, [facility] [place] [facility] [address] [id number] [place] [address] 27 Sep, 2012 [facility] [place] [facility] [address] [id number] [place] [address] Sep, [facility] [address] [id number] [place] [address] 17 Sep, 2012 [facility] [place] [facility] [address] [id number] [place] [address] 14 Sep, 2012 [facility] [address] [id number] [place] [address] Sep, [facility] [address] [id number] [place] [address] August, [facility] [address] [id number] [place] [address] August, [facility] [address] [id number] [place] [address] Jul, [facility] [place] [facility] [address] [id number] [place] [address] Jul, [facility] [place] [facility] [address] [id number] [place] [address] 15 Jul, 2012 [facility] [place] [facility] [address] [id number] [place] [address] 09 Jul, 2012 [facility] [place] [facility] [address] [id number] [place] [address] 08 Jul, 2012 [facility] [place] [facility] [address] [id number] [place] [address] 26 Jun, 2012 [facility] [place] [facility] [address] [id number] [place] [address] Jun, [facility] [address] [id number] [place] [address] 15 Jun, 2012 [facility] [address] [id number] [place] [address] Jun, [facility] [address] [facility] [id number] [place] [address] Jun, [facility] [address] [id number] [place] [address] May, [facility] [address] [id number] [place] [address] May, [facility] [address] [id number] [place] [address] May, [facility] [address] [id number] [place] [address] May, [facility] [place] [facility] [address] [id number] [place] [address] May, [facility] [address] [id number] [place] [address] 14 May, 2012 [facility] [address] [facility] [id number] [place] [address] May, [facility] [place] [facility] [address] [facility] [id number] [place] [address] 08 May, 2012 [facility] [place] [facility] [address] [id number] [place] [address] May, [facility] [place] [facility] [address] [id number] [place] [address] Apr, [facility] [place] [facility] [address] [id number] [place] [address] Apr, [facility] [place] [facility] [address] [id number], [place] [address] Apr, [facility] [place] [facility] [address] [id number] [place] [address] Apr, [facility] [address] [id number] [place] [address] Apr, [facility] [address] [id number] [place] [address] Mar, [facility] [address] [id number] [place] [address] Mar, [facility] [address] [id number] [place] [address] Mar, [facility] [address] [id number] [place] [address] Mar, [facility] [address] [id number] [place] [address] Mar, [facility] [address] [id number] [place] [address] Mar, [facility] [address] [id number] [place] [address] Mar, [facility] [address] [id number] [place] [address] Mar, [facility] [address] [id number] [place] [address] Mar, [facility] [address] [id number] [place] [address] Mar, [facility] [address] [id number] [place] [address] Feb, [facility] [place] [facility] [address] [id number] [place] [address] Feb, [facility] [address] [id number] [place] [address] 29 Feb, 2012 [facility] [address] [id number] [place] [address] Feb, [facility] [place] [facility] [address] [id number] [place] [address] Feb, [facility] [place] [facility] [address] [id number] [place] [address] Feb, [facility] [place] [facility] [address] [id number] [place] [address] Feb, [facility] [place] [facility] [address] [id number] [place] [address] Feb, [facility] [place] [facility] [address] [id number] [place] [address] Feb, [facility] [place] [facility] [address] [id number] [place] [address] 16 Feb, 2012 [facility] [place] [facility] [address] [id number] [place] [address] Feb, [facility] [place] [facility] [address] [id number] [place] [address] Feb, [facility] [place] [facility] [address] [id number] [place] [address] Feb, [facility] [place] [facility] [address] [id number] [place] [address] Feb, [facility] [place] [facility] [address] [id number], [place] [address] Feb, [facility] [place] [facility] [address] [id number], [place] [address] Feb, [facility] [place] [facility] [address] [id number] [place] [address] Feb, [facility] [place] [facility] [address] [id number] [place] [address] Feb, [facility] [place] [facility] [address] [id number] [place] [address] 31 Jan, 2012 [facility] [place] [facility] [address] [id number] [place] [address] Jan, [facility] [place] [facility] [address] [id number] [place] [address] Jan, [facility] [place] [facility] [address] [id number] [place] [address] Jan, [facility] [place] [facility] [address] [id number] [place] [address] Jan, [facility] [place] [facility] [address] [id number] [place] [address] Jan, [facility] [place] [facility] [address] [id number] [place] [address] Jan, [facility] [place] [facility] [address] [id number] [place] [address] Jan, [facility] [place] [facility] [address] [id number] [place] [address] Jan, [facility] [place] [facility] [address] [id number] [place] [address] Jan, [facility] [place] [facility] [address] [id number] [place] [address] Dec, [facility] [place] [facility] [address] [id number] [place] [address] Dec, [facility] [place] [facility] [address] [id number] [place] [address] Dec, [facility] [place] [facility] [address] [id number] [place] [address] Dec, [facility] [place] [facility] [address] [id number] [place] [address] Nov, [facility] [place] [facility] [address] [id number] [place] [address] Nov, [facility] [place] [facility] [address] [id number] [place] [address] Nov, [facility] [place] [facility] [address] [id number] [place] [address] Nov, [facility] [place] [facility] [address] [id number] [place] [address] Nov, [facility] [place] [facility] [address] [id number] [place] [address] Nov, [facility] [place] [facility] [address] [id number] [place] [address] Oct, [facility] [place] [facility] [address] [id number] [place] [address] Oct, [facility] [place] [facility] [address] [id number] [place] [address] Oct, [facility] [place] [facility] [address] [id number] [place] [address] Oct, [facility] [place] [facility] [address] [id number] [place] [address] Oct, [facility] [place] [facility] [address] [id number] [place] [address] Sep, [facility] [place] [facility] [address] [id number] [place] [address] Sep, [facility] [place] [facility] [address] [id number] [place] [address] Sep, [facility] [place] [facility] [address] [id number], [place] [address] Sep, [facility] [place] [facility] [address] [id number] [place] [address] Sep, [facility] [place] [facility] [address] [id number] [place] [address] August, [facility] [place] [facility] [address] [id number] [place] [address] August, [facility] [place] [facility] [address] [id number], [place] [address] August, [facility] [address] [id number] [place] [address] August, [facility] [place] [facility] [address] [id number] [place] [address] Jul, [facility] [address] [id number] [place] [address] 24 Jul, 2011 [facility] [address] [id number] [place] [address] Jul, [facility] [address] [id number] [place] [address] Jul, [facility] [address] [id number] [place] [address] Jul, [facility] [address] [id number] [place] [address] Jul, [facility] [address] [id number] [place] [address] Jul, [facility] [address] [id number] [place] [address] Jul, [facility] [address] [id number] [place] [address] Jul, [facility] [address] [id number] [place] [address] Jul, [facility] [place] [facility] [address] [id number] [place] [address] 05 Jul, 2011 [facility] [place] [facility] [address] [id number] [place] [address] Jul, [facility] [place] [facility] [address] [id number] [place] [address] Jul, [facility] [place] [facility] [address] [id number] [place] [address] Jul, [facility] [place] [facility] [address] [id number] [place] [address] 28 Jun, 2011 [facility] [place] [facility] [address] [id number] [place] [address] 27 Jun, 2011 [facility] [place] [facility] [address] [id number] [place] [address] 20 Jun, 2011 [facility] [place] [facility] [address] [id number] [place] [address] 16 Jun, 2011 [facility] [place] [facility] [address] [id number] [place] [address] 27 May, 2011 [facility] [place] [facility] [address] [id number] [place] [address] 16 May, 2011 [facility] [place] [facility] [address] [id number] [place] [address] May, [facility] [place] [facility] [address] [id number] [place] [address] Apr, [facility] [place] [facility] [address] [id number] [place] [address] 18 Apr, 2011 [facility] [place] [facility] [address] [id number] [place] [address] Apr, [facility] [place] [facility] [address] [id number] [place] [address] Apr, [facility] [place] [facility] [address] [id number] [place] [address] Apr, [facility] [place] [facility] [address] [id number] [place] [address] Mar, [facility] [place] [facility] [address] [id number] [place] [address] Mar, [facility] [place] [facility] [address] [id number] [place] [address] Mar, [facility] [place] [facility] [address] [id number], [place] [address] 20 Mar, 2011 [facility] [place] [facility] [address] [id number] [place] [address] 16 Mar, 2011 [facility] [place] [facility] [address] [id number] [place] [address] 09 Mar, 2011 [facility] [place] [facility] [address] [id number] [place] [address] 05 Mar, 2011 [facility] [place] [facility] [address] [id number], [place] [address] 29 Feb, 2011 [facility] [place] [facility] [address] [id number] [place] [address] Feb, [facility] [place] [facility] [address] [id number] [place] [address] Feb, [facility] [place] [facility] [address] [id number] [place] [address] Feb, [facility] [place] [facility] [address] [id number], [place] [address] 16 Feb, 2011 [facility] [place] [facility] [address] [id number], [place] [address] 14 Feb, 2011 [facility] [place] [facility] [address] [id number] [place] [address] Feb, [facility] [place] [facility] [address] [id number], [place] [address] 31 Jan, 2011 [facility] [place] [facility] [address] [id number], [place] [address] 31 Jan, 2011 [facility] [place] [facility] [address] [id number] [place] [address] 31 Jan, 2011 [facility] [place] [facility] [address] [id number], [place] [address] 18 Jan, 2011 [facility] [place] [facility] [address] [id number], [place] [address] 17 Jan, 2011 [facility] [place] [facility] [address] [id number] [place] [address] 17 Jan, 2011 [facility] [address] [id number] [place] [address] 17 Jun, 2010 [facility] [address] [id number] [place] [address] 30 Mar, 2010 [facility] [address] [id number] [place] [address] 20 Mar, 2010 [facility] [address] [id number] [place] [address] 14 Mar, 2010 [facility] [address] [id number] [place] [address] 14 Mar, 2010 [facility] [address] [id number] [place] [address] 13 Mar, 2010 [facility] [facility] [address] [facility] [id number] [place] [address] 07 Mar, 2010 [facility] [address] [id number] [place] [address] 02 Mar, 2010 [facility] [address] [facility] [id number] [place] [address] 01 Mar, 2010 [facility] [address] [facility] [id number] [place] [address] 30 Feb, 2010 [facility] [address] [id number] [place] [address] 29 Feb, 2010 [facility] [address] [id number] [place] [address] 17 Feb, 2010 [facility] [address] [id number] [place] [address] 17 Feb, 2010 [facility] [address] [facility] [id number] [place] [address] 16 Feb, 2010 [facility] [address] [facility] [id number] [place] [address] Feb, [facility] [place] [facility] [address] [id number] [place] [address] Feb, [facility] [place] [facility] [address] [id number] [place] [address] Feb, [facility] [place] [facility] [address] [id number] [place] [address] Jan, [facility] [place] [facility] [address] [id number] [place] [address] Jan, [facility] [place] [facility] [address] [id number] [place] [address] Jan, [facility] [place] [facility] [address] [id number] [place] [address] Jan, [facility] [place] [facility] [address] [facility] [id number] [place] [address] 29 Mar, 2009 [facility] [place] [facility] [address] [id number], [place] [address] 22 Mar, 2009 [facility] [place] [facility] [address] [facility] [id number], [place] [address] Mar, [facility] [place] [facility] [address] [facility] [id number], [place] [address] 19 Mar, 2009 [facility] [place] [facility] [address] [facility] [id number], [place] [address] 14 Mar, 2009 [facility] [place] [facility] [address] [facility] [id number], [place] [address] 10 Mar, 2009 [facility] [place] [facility] [address] [facility] [id number], [place] [address] 18 Feb, 2009 [facility] [place] [facility] [address] [facility] [id number], [place] [address] 18 Feb, 2009 [facility] [place] [facility] [address] [facility] [id number], [place] [address] 13 Jan, 2009 [facility] [place] [facility] [address] [id number], [place] [address] Sep, [facility] [address] [facility] [id number] [place] [address] May, IMMUNIZATIONS No Known Immunizations SOCIAL HISTORY Never Assessed REASON FOR VISIT [place] [place] [...] Surgical History Left ear surgery Hospitalization History [facility] [place]- Spontaneous Pneumothorax Hospitalization History [facility] Colon resection Hospitalization History [facility] - diarrhea/ couldnt urinate nov 2017
--- OUTSIDE RECORDS SUMMARY | 2018-10-15 01:15 | XMS REPORT ---
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 Name Role Phone Migration, Doctor Unavailable Unavailable PROBLEMS Type Condition ICD9-CM Code PGO17-UE Code Onset Dates Condition Status SNOMED Code Problem Constipation K59.00 Active 30179889 Problem Chronic pain G89.29 Active 61473648 Problem Hyperlipidemia E78.5 Active 66642992 Problem Insomnia G47.00 Active 561935602 Problem Chronic kidney disease, stage III (moderate) N18.3 Active 614136667 Problem Anxiety F41.9 Active 29920115 Problem Vision loss H54.7 Active 210260356 Problem HTN (hypertension) I10 Active 60436219 Problem Thoracic back pain, unspecified back pain laterality, unspecified chronicity M54.6 Active 808138504 Problem Vitamin D deficiency E55.9 Active 98972813 Problem Environmental allergies Z91.09 Active 228479606 Problem Primary insomnia F51.01 Active 3043496 ALLERGIES No Information ENCOUNTERS Encounter Location Date Diagnosis [facility] [id number] [place] [address] Jun, Anxiety F41.9 and Thoracic back pain, unspecified back pain laterality, unspecified chronicity M54.6 [facility] [address] [place] [address] Jun, Thoracic back pain, unspecified back pain laterality, unspecified chronicity M54.6 [facility] [address], [place] [address] Jun, Anxiety F41.9 and Thoracic back pain, unspecified back pain laterality, unspecified chronicity M54.6 [facility] [id number] [place] [address] May, [facility] [id number] [place] [address] May, [facility] [id number] [place] [address] May, [facility] [address] [address] 06 May, 2018 Anxiety F41.9 and Encounter for medication monitoring Z51.81 [facility] [address] [address] May, Anxiety F41.9 and Thoracic back pain, unspecified back pain laterality, unspecified chronicity M54.6 [facility] [address] [address] Apr, Hyperlipidemia 272.4 [facility] [address] [address] Apr, Chronic pain G89.29 ; Anxiety F41.9 ; Cervical radiculopathy M54.12 and Vision loss H54.7 [facility] [id number] [place] [address] Apr, [facility] [address] [address] Apr, Anxiety F41.9 and Thoracic back pain, unspecified back pain laterality, unspecified chronicity M54.6 [facility] [address] [address] 17 Mar, 2018 [facility] [address] [address] 10 Mar, 2018 Anxiety F41.9 and Thoracic back pain, unspecified back pain laterality, unspecified chronicity M54.6 [facility] [address] [address] 14 Feb, 2018 Anxiety F41.9 and Thoracic back pain, unspecified back pain laterality, unspecified chronicity M54.6 [facility] [id number] [place] [address] Feb, Thoracic back pain, unspecified back pain laterality, unspecified chronicity M54.6 [facility] [id number] [place] [address] Jan, [facility] [id number] [place] [address] Jan, Anxiety F41.9 and Thoracic back pain, unspecified back pain laterality, unspecified chronicity M54.6 [facility] [id number] [place] [address] 19 Dec, 2017 Diarrhea of presumed infectious origin R19.7 [facility] [id number] [place] [address] 19 Dec, 2017 Diarrhea of presumed infectious origin R19.7 [facility] [id number] [place] [address] 18 Dec, 2017 Thoracic back pain, unspecified back pain laterality, unspecified chronicity M54.6 [facility] [id number] [place] [address] 17 Dec, 2017 [facility] [id number] [place] [address] 17 Dec, 2017 Anxiety F41.9 and Thoracic back pain, unspecified back pain laterality, unspecified chronicity M54.6 [facility] [id number] [place] [address] Dec, Diarrhea of presumed infectious origin R19.7 [facility] [id number] [place] [address] Dec, [facility] [id number] [place] [address] Dec, Anxiety F41.9 and Thoracic back pain, unspecified back pain laterality, unspecified chronicity M54.6 [facility] [id number] [place] [address] Dec, Anxiety F41.9 and Thoracic back pain, unspecified back pain laterality, unspecified chronicity M54.6 [facility] [address] [place] [id number] Dec, Diarrhea of presumed infectious origin R19.7 ; Anxiety F41.9 ; Thoracic back pain, unspecified back pain laterality, unspecified chronicity M54.6 and HTN (hypertension) I10 [facility] [id number] [place] [address] Dec, Anxiety F41.9 [facility] [address] [place] [id number] Dec, Anxiety F41.9 ; Diarrhea of presumed infectious origin R19.7 ; Generalized abdominal pain R10.84 and Localized edema R60.0 [facility] [address] [address] Nov, [facility] [address] [place] [id number] Nov, Anxiety F41.9 ; Urinary retention R33.9 ; Diarrhea of presumed infectious origin R19.7 ; Weakness R53.1 ; Acute kidney failure, unspecified N17.9 ; Chronic kidney disease, stage III (moderate) N18.3 and Thoracic back pain, unspecified back pain laterality, unspecified chronicity M54.6 [facility] [id number] [place] [address] Oct, Thoracic back pain, unspecified back pain laterality, unspecified chronicity M54.6 and Anxiety F41.9 [facility] [id number] [place] [address] Sep, Thoracic back pain, unspecified back pain laterality, unspecified chronicity M54.6 and Anxiety F41.9 [facility] [address] [address] Sep, Thoracic back pain, unspecified back pain laterality, unspecified chronicity M54.6 ; Anxiety F41.9 and Encounter for medication monitoring Z51.81 [facility] [address] [address] August, [facility] [id number] [place] [address] August, Thoracic back pain, unspecified back pain laterality, unspecified chronicity M54.6 and Anxiety F41.9 [facility] [id number] [place] [address] August, Hyperlipidemia E78.5 and HTN (hypertension) I10 [facility] [id number] [place] [address] August, [facility] [id number] [place] [address] August, Medicare welcome exam Z00.00 ; Chronic kidney failure N18.9 ; Anxiety F41.9 ; Chronic pain G89.29 ; Insomnia G47.00 ; Hyperlipidemia E78.5 ; HTN (hypertension) I10 and Thoracic back pain, unspecified back pain laterality, unspecified chronicity M54.6 [facility] [id number] [place] [address] Jul, [facility] [id number] [place] [address] Jul, [facility] [id number] [place] [address] Jul, [facility] [id number] [place] [address] Jul, Anxiety F41.9 [facility] [id number] [place] [address] Jul, Thoracic back pain, unspecified back pain laterality, unspecified chronicity M54.6 and Anxiety F41.9 [facility] [id number] [place] [address] Jun, Thoracic back pain, unspecified back pain laterality, unspecified chronicity M54.6 and Anxiety F41.9 [facility] [id number] [address] 12 May, 2017 Thoracic back pain, unspecified back pain laterality, unspecified chronicity M54.6 and Anxiety F41.9 [facility] [id number] [place] [address] Apr, Thoracic back pain, unspecified back pain laterality, unspecified chronicity M54.6 and Anxiety F41.9 [facility] [id number] [place] [address] Mar, [facility] [id number] [place] [address] Mar, Thoracic back pain, unspecified back pain laterality, unspecified chronicity M54.6 and Anxiety F41.9 [facility] [id number] [place] [address] 14 Mar, 2017 Thoracic back pain, unspecified back pain laterality, unspecified chronicity M54.6 ; HTN (hypertension) I10 ; Hyperlipidemia E78.5 and Anxiety F41.9 [facility] [id number] [place] [address] Feb, Thoracic back pain, unspecified back pain laterality, unspecified chronicity M54.6 and Anxiety F41.9 [facility] [id number] [place] [address] Nov, [facility] [id number] [place] [address] Oct, [facility] [id number] [place] [address] Oct, Thoracic back pain, unspecified back pain laterality, unspecified chronicity M54.6 [facility] [id number] [place] [address] Oct, HTN (hypertension) I10 ; Constipation K59.00 ; Hyperlipidemia E78.5 ; Thoracic back pain, unspecified back pain laterality, unspecified chronicity M54.6 ; Chronic pain G89.29 ; Anxiety F41.9 ; Chronic kidney failure N18.9 ; Environmental allergies Z91.09 ; Vitamin D deficiency E55.9 and Primary insomnia F51.01 [facility] [id number] [place] [address] Sep, Anxiety F41.9 [facility] [id number] [place] [address] Sep, [facility] [id number] [place] [address] August, Anxiety F41.9 [facility] [id number] [place] [address] August, [facility] [id number] [place] [address] Jul, Anxiety F41.9 [facility] [id number] [place] [address] Jul, [facility] [id number] [place] [address] Jun, Anxiety F41.9 [facility] [id number] [place] [address] Jun, [facility] [id number] [place] [address] May, [facility] [id number] [place] [address] May, [facility] [id number] [place] [address] May, [facility] [id number] [place] [address] Apr, [facility] [id number] [place] [address] Apr, [facility] [id number] [place] [address] Apr, Anxiety F41.9 [facility] [id number] [place] [address] Apr, Anxiety F41.9 [facility] [id number] [place] [address] Apr, [facility] [id number] [place] [address] Mar, HTN (hypertension) I10 ; Tremor R25.1 ; Hypercholesterolemia E78.0 ; Constipation K59.00 ; Chronic pain G89.29 ; Hyperlipidemia E78.5 ; Insomnia G47.00 ; Anxiety F41.9 and Thoracic back pain, unspecified back pain laterality, unspecified chronicity M54.6 [facility] [id number] [place] [address] Mar, Tremor R25.1 ; HTN (hypertension) I10 ; Hypercholesterolemia E78.0 ; Constipation K59.00 ; Chronic pain G89.29 ; Hyperlipidemia E78.5 ; Insomnia G47.00 ; Anxiety F41.9 and Thoracic back pain, unspecified back pain laterality, unspecified chronicity M54.6 [facility] [id number] [place] [address] Mar, [facility] [id number] [place] [address] Mar, [facility] [id number] [place] [address] Feb, [facility] [id number] [place] [address] Jan, [facility] [id number] [place] [address] Jan, [facility] [id number] [place] [address] 15 Dec, 2015 [facility] [id number] [place] [address] Nov, [facility] [address], [place] [address] Nov, [facility] [id number] [place] [address] Oct, Anxiety F41.9 [facility] [id number] [place] [address] Oct, Chronic pain G89.29 [facility] [id number] [place] [address] Sep, [facility] [id number] [place] [address] Sep, [facility] [id number] [place] [address] Sep, [facility] [id number] [place] [address] Sep, [facility] [id number] [place] [address] Sep, Chronic pain syndrome G89.4 [facility] [id number] [place] [address] Sep, HTN (hypertension) I10 ; Chronic pain G89.29 ; Hypercholesterolemia E78.0 ; Chronic kidney failure N18.9 ; Constipation, unspecified constipation type K59.00 ; Anxiety F41.9 and Thoracic back pain, unspecified back pain laterality, unspecified chronicity M54.6 [facility] [address] [place] [address] August, Chronic pain syndrome G89.4 [facility] [id number] [place] [address] August, Chronic pain syndrome G89.4 [facility] [id number] [place] [address] Jul, Anxiety disorder, unspecified F41.9 and Chronic pain syndrome G89.4 [facility] [address], [place] [address] Jul, Insomnia, unspecified G47.00 and Chronic pain syndrome G89.4 [facility] [id number], [place] [address] Jul, Allergic rhinitis J30.9 [facility] [id number] [place] [address] Jul, Constipation, unspecified K59.00 [facility] [id number] [place] [address] Jul, [facility] [id number] [place] [address] Jun, [facility] [id number] [place] [address] Jun, [facility] [id number] [place] [address] Jun, [facility] [id number] [place] [address] Jun, [facility] [id number] [place] [address] Jun, [facility] [id number] [place] [address] Jun, [facility] [id number] [place] [address] May, [facility] [address] [place] [address] May, [facility] [id number] [place] [address] May, Anxiety F41.9 ; Insomnia G47.00 ; Hyperlipidemia E78.5 ; Chronic pain G89.29 ; HTN (hypertension) I10 ; Environmental allergies V15.09 and Constipation 564.00 [place] [address] [address] Apr, [facility] [id number] [place] [address] Apr, [facility] [address], [place] [address] Apr, [facility] [id number] [place] [address] Mar, [facility] [id number] [place] [address] Mar, [facility] [id number] [place] [address] Mar, [facility] [id number] [place] [address] Feb, [facility] [id number] [place] [address] Feb, [facility] [id number] [place] [address] Feb, [facility] [id number] [place] [address] Jan, HTN (hypertension) I10 ; Constipation K59.00 ; Chronic pain G89.29 ; Hyperlipidemia E78.5 ; Hypercholesterolemia E78.0 ; Insomnia G47.00 and Anxiety F41.9 [facility] [address], [place] [address] Jan, [facility] [address], [place] [address] Dec, [facility] [id number] [place] [address] Nov, [facility] [address], [place] [address] Oct, Chronic kidney disease, unspecified 585.9 ; Chronic pain syndrome 338.4 ; Hyperlipidemia 272.4 and Essential hypertension 401.9 [facility] [address], [place] [address] Oct, Chronic kidney disease 585.9 [facility] [address], [place] [address] 15 Oct, 2014 [facility] [id number] [place] [address] Oct, Chronic kidney disease, unspecified 585.9 ; Hypercalcemia 275.42 ; Hyperlipidemia 272.4 ; Essential hypertension 401.9 ; Chronic pain syndrome 338.4 ; Insomnia 780.52 ; Constipation 564.00 ; Environmental allergies V15.09 and Anxiety 300.00 [facility] [id number] [place] [address] Oct, Chronic kidney disease 585.9 [facility] [id number] [place] [address] Oct, [facility] [address] [place] [address] Oct, Chronic kidney disease 585.9 and Hyperlipidemia 272.4 [facility] [address] [place] [address] Oct, [facility] [address], [place] [address] Oct, [facility] [address], [place] [address] Sep, [facility] [address], [place] [address] Sep, [facility] [id number] [place] [address] Sep, Chronic kidney disease 585.9 and Hyperlipidemia 272.4 [facility] [address], [place] [address] Sep, [facility] [place] [facility] [address] [id number] [place] [address] August, [facility] [place] [facility] [address] [id number] [place] [address] August, [facility] [place] [facility] [address] [id number] [place] [address] Jul, [facility] [place] [facility] [address] [id number] [place] [address] Jul, [facility] [place] [facility] [address] [id number] [place] [address] Jun, [facility] [place] [facility] [address] [id number] [place] [address] Jun, [facility] [place] [facility] [address] [id number] [place] [address] Jun, [facility] [place] [facility] [address] [id number] [place] [address] Jun, [facility] [place] [facility] [address] [id number] [place] [address] Jun, [facility] [place] [facility] [address] [id number] [place] [address] Jun, [facility] [place] [facility] [address] [id number] [place] [address] Jun, [facility] [place] [facility] [address] [id number] [place] [address] Jun, [facility] [place] [facility] [address] [id number] [place] [address] May, [facility] [place] [facility] [address] [id number] [place] [address] May, [facility] [place] [facility] [address] [id number] [place] [address] May, [facility] [place] [facility] [address] [id number] [place] [address] May, [facility] [place] [facility] [address] [id number] [place] [address] Apr, [facility] [place] [facility] [address] [id number] [place] [address] Apr, [facility] [place] [facility] [address] [id number] [place] [address] Apr, [facility] [place] [facility] [address] [id number] [place] [address] Apr, [facility] [place] [facility] [address] [id number] [place] [address] Apr, [facility] [place] [facility] [address] [id number] [place] [address] Apr, [facility] [place] [facility] [address] [id number] [place] [address] Apr, [facility] [place] [facility] [address] [id number] [place] [address] Apr, [facility] [place] [facility] [address] [id number] [place] [address] Apr, [facility] [place] [facility] [address] [id number] [place] [address] Apr, [facility] [place] [facility] [address] [id number] [place] [address] Apr, [facility] [place] [facility] [address] [id number] [place] [address] Mar, [facility] [place] [facility] [address] [id number] [place] [address] Mar, [facility] [place] [facility] [address] [id number] [place] [address] Feb, [facility] [place] [facility] [address] [id number] [place] [address] Feb, [facility] [place] [facility] [address] [id number] [place] [address] Feb, [facility] [place] [facility] [address] [id number] [place] [address] Feb, [facility] [place] [facility] [address] [id number] [place] [address] Feb, [facility] [place] [facility] [address] [id number] [place] [address] Feb, [facility] [place] [facility] [address] [id number] [place] [address] Feb, [facility] [place] [facility] [address] [id number] [place] [address] Feb, [facility] [place] [facility] [address] [id number] [place] [address] Feb, [facility] [place] [facility] [address] [id number] [place] [address] Feb, [facility] [place] [facility] [address] [id number] [place] [address] Jan, [facility] [place] [facility] [address] [id number] [place] [address] Jan, [facility] [place] [facility] [address] [id number] [place] [address] Jan, [facility] [place] [facility] [address] [id number] [place] [address] Jan, [facility] [place] [facility] [address] [id number] [place] [address] Jan, [facility] [place] [facility] [address] [id number] [place] [address] Jan, [facility] [place] [facility] [address] [id number] [place] [address] Jan, [facility] [place] [facility] [address] [id number] [place] [address] Jan, [facility] [place] [facility] [address] [id number] [place] [address] 16 Jan, 2014 [facility] [place] [facility] [address] [id number] [place] [address] Jan, [facility] [place] [facility] [address] [id number] [place] [address] Jan, [facility] [place] [facility] [address] [id number] [place] [address] Dec, 2013 [facility] [place] [facility] [address] [id number] [place] [address] Dec, [facility] [place] [facility] [address] [id number] [place] [address] Dec, [facility] [place] [facility] [address] [id number] [place] [address] Dec, [facility] [place] [facility] [address] [id number] [place] [address] 18 Dec, 2013 [facility] [place] [facility] [address] [id number] [place] [address] 18 Dec, 2013 [facility] [place] [facility] [address] [id number], [place] [address] Dec, [facility] [place] [facility] [address] [id number], [place] [address] Dec, [facility] [place] [facility] [address] [id number], [place] [address] Nov, [facility] [place] [facility] [address] [id number] [place] [address] Nov, [facility] [place] [facility] [address] [id number] [place] [address] Nov, [facility] [place] [facility] [address] [id number], [place] [address] Nov, [facility] [place] [facility] [address] [id number], [place] [address] Nov, [facility] [place] [facility] [address] [id number] [place] [address] Nov, [facility] [place] [facility] [address] [id number] [place] [address] Nov, [facility] [place] [facility] [address] [id number] [place] [address] Nov, [facility] [place] [facility] [address] [id number] [place] [address] Oct, [facility] [place] [facility] [address] [id number] [place] [address] Oct, [facility] [place] [facility] [address] [id number] [place] [address] Oct, [facility] [place] [facility] [address] [facility] [id number] [place] [address] Oct, [facility] [place] [facility] [address] [id number] [place] [address] Sep, [facility] [place] [facility] [address] [id number] [place] [address] Sep, [facility] [place] [facility] [address] [facility] [id number] [place] [address] Sep, [facility] [place] [facility] [address] [id number] [place] [address] Sep, [facility] [place] [facility] [address] [id number], [place] [address] Sep, [facility] [place] [facility] [address] [id number] [place] [address] Sep, [facility] [place] [facility] [address] [facility] [id number] [place] [address] Sep, [facility] [place] [facility] [address] [facility] [id number] [place] [address] Sep, [facility] [place] [facility] [address] [id number] [place] [address] August, [facility] [place] [facility] [address] [id number] [place] [address] August, [facility] [place] [facility] [address] [id number] [place] [address] August, [facility] [place] [facility] [address] [id number] [place] [address] August, [facility] [place] [facility] [address] [id number] [place] [address] August, [facility] [place] [facility] [address] [id number] [place] [address] August, [facility] [place] [facility] [address] [id number] [place] [address] August, [facility] [place] [facility] [address] [id number] [place] [address] August, [facility] [place] [facility] [address] [id number] [place] [address] August, [facility] [place] [facility] [address] [id number] [place] [address] August, [facility] [place] [facility] [address] [id number] [place] [address] Jul, [facility] [place] [facility] [address] [id number] [place] [address] Jul, [facility] [place] [facility] [address] [id number] [place] [address] Jul, [facility] [place] [facility] [address] [id number] [place] [address] Jul, [facility] [place] [facility] [address] [id number] [place] [address] Jul, [facility] [place] [facility] [address] [id number] [place] [address] Jul, [facility] [place] [facility] [address] [id number] [place] [address] Jul, [facility] [place] [facility] [address] [id number] [place] [address] Jul, [facility] [place] [facility] [address] [facility] [id number] [place] [address] Jun, [facility] [place] [facility] [address] [id number] [place] [address] Jun, [facility] [place] [facility] [address] [id number] [place] [address] Jun, [facility] [place] [facility] [address] [facility] [id number] [place] [address] Jun, [facility] [place] [facility] [address] [facility] [id number] [place] [address] Jun, [facility] [place] [facility] [address] [id number] [place] [address] Jun, [facility] [place] [facility] [address] [facility] [id number] [place] [address] May, [facility] [place] [facility] [address] [facility] [id number] [place] [address] May, [facility] [place] [facility] [address] [facility] [id number] [place] [address] May, [facility] [place] [facility] [address] [id number] [place] [address] May, [facility] [place] [facility] [address] [id number] [place] [address] May, [facility] [place] [facility] [address] [facility] [id number] [place] [address] May, [facility] [place] [facility] [address] [facility] [id number] [place] [address] May, [facility] [place] [facility] [address] [id number] [place] [address] Apr, [facility] [address] [id number] [place] [address] Apr, [facility] [place] [facility] [address] [id number] [place] [address] Apr, [facility] [place] [facility] [address] [id number] [place] [address] Apr, [facility] [place] [facility] [address] [id number] [place] [address] Apr, [facility] [place] [facility] [address] [id number] [place] [address] Apr, [facility] [place] [facility] [address] [id number] [place] [address] Mar, [facility] [place] [facility] [address] [id number] [place] [address] Mar, [facility] [address] [id number] [place] [address] Mar, [facility] [place] [facility] [address] [id number] [place] [address] Mar, [facility] [place] [facility] [address] [id number] [place] [address] Mar, [facility] [place] [facility] [address] [id number] [place] [address] 19 Mar, 2013 [facility] [place] [facility] [address] [id number] [place] [address] 16 Mar, 2013 [facility] [place] [facility] [address] [id number] [place] [address] 16 Mar, 2013 [facility] [place] [facility] [address] [id number] [place] [address] 12 Mar, 2013 [facility] [place] [facility] [address] [id number] [place] [address] Mar, [facility] [place] [facility] [address] [id number] [place] [address] Feb, [facility] [place] [facility] [address] [id number] [place] [address] Feb, [facility] [place] [facility] [address] [id number] [place] [address] Feb, [facility] [place] [facility] [address] [id number] [place] [address] Feb, [facility] [place] [facility] [address] [id number] [place] [address] Feb, [facility] [place] [facility] [address] [id number] [place] [address] Feb, [facility] [place] [facility] [address] [id number] [place] [address] Feb, [facility] [place] [facility] [address] [id number], [place] [address] Feb, [facility] [place] [facility] [address] [id number] [place] [address] Feb, [facility] [place] [facility] [address] [id number], [place] [address] Feb, [facility] [place] [facility] [address] [id number], [place] [address] Jan, [facility] [place] [facility] [address] [id number], [place] [address] Jan, [facility] [place] [facility] [address] [id number], [place] [address] Jan, [facility] [place] [facility] [address] [id number], [place] [address] Jan, [facility] [place] [facility] [address] [id number], [place] [address] Jan, [facility] [place] [facility] [address] [id number] [place] [address] Jan, [facility] [address] [id number] [place] [address] Jan, [facility] [place] [facility] [address] [id number] [place] [address] Jan, [facility] [place] [facility] [address] [id number] [place] [address] Jan, [facility] [place] [facility] [address] [id number] [place] [address] Dec, [facility] [place] [facility] [address] [id number] [place] [address] Dec, [facility] [place] [facility] [address] [id number] [place] [address] Dec, [facility] [address] [id number] [place] [address] Dec, [facility] [place] [facility] [address] [id number] [place] [address] Nov, [facility] [place] [facility] [address] [id number] [place] [address] Nov, [facility] [place] [facility] [address] [id number] [place] [address] Nov, [facility] [place] [facility] [address] [id number] [place] [address] Nov, [facility] [place] [facility] [address] [id number] [place] [address] Nov, [facility] [place] [facility] [address] [id number] [place] [address] Nov, [facility] [place] [facility] [address] [id number] [place] [address] Oct, [facility] [place] [facility] [address] [id number] [place] [address] Oct, [facility] [place] [facility] [address] [id number] [place] [address] Oct, [facility] [address] [id number] [place] [address] Oct, [facility] [place] [facility] [address] [id number] [place] [address] 27 Sep, 2012 [facility] [place] [facility] [address] [id number] [place] [address] Sep, [facility] [address] [id number] [place] [address] 17 Sep, 2012 [facility] [place] [facility] [address] [id number] [place] [address] 14 Sep, 2012 [facility] [address] [id number] [place] [address] Sep, [facility] [address] [id number] [place] [address] August, [facility] [address] [id number] [place] [address] August, [facility] [address] [id number] [place] [address] Jul, [facility] [place] [facility] [address] [id number] [place] [address] Jul, [facility] [place] [facility] [address] [id number] [place] [address] 15 Jul, 2012 [facility] [place] [facility] [address] [id number] [place] [address] 09 Jul, 2012 [facility] [place] [facility] [address] [id number] [place] [address] 08 Jul, 2012 [facility] [place] [facility] [address] [id number] [place] [address] 26 Jun, 2012 [facility] [place] [facility] [address] [id number] [place] [address] Jun, [facility] [address] [id number] [place] [address] 15 Jun, 2012 [facility] [address] [id number] [place] [address] Jun, [facility] [address] [facility] [id number] [place] [address] Jun, [facility] [address] [id number] [place] [address] May, [facility] [address] [id number] [place] [address] May, [facility] [address] [id number] [place] [address] May, [facility] [address] [id number] [place] [address] May, [facility] [place] [facility] [address] [id number] [place] [address] May, [facility] [address] [id number] [place] [address] 14 May, 2012 [facility] [address] [facility] [id number] [place] [address] May, [facility] [place] [facility] [address] [facility] [id number] [place] [address] 08 May, 2012 [facility] [place] [facility] [address] [id number] [place] [address] May, [facility] [place] [facility] [address] [id number] [place] [address] Apr, [facility] [place] [facility] [address] [id number] [place] [address] Apr, [facility] [place] [facility] [address] [id number], [place] [address] Apr, [facility] [place] [facility] [address] [id number] [place] [address] Apr, [facility] [address] [id number] [place] [address] Apr, [facility] [address] [id number] [place] [address] Mar, [facility] [address] [id number] [place] [address] Mar, [facility] [address] [id number] [place] [address] Mar, [facility] [address] [id number] [place] [address] Mar, [facility] [address] [id number] [place] [address] Mar, [facility] [address] [id number] [place] [address] Mar, [facility] [address] [id number] [place] [address] Mar, [facility] [address] [id number] [place] [address] Mar, [facility] [address] [id number] [place] [address] Mar, [facility] [address] [id number] [place] [address] Mar, [facility] [address] [id number] [place] [address] Feb, [facility] [place] [facility] [address] [id number] [place] [address] Feb, [facility] [address] [id number] [place] [address] 29 Feb, 2012 [facility] [address] [id number] [place] [address] Feb, [facility] [place] [facility] [address] [id number] [place] [address] Feb, [facility] [place] [facility] [address] [id number] [place] [address] Feb, [facility] [place] [facility] [address] [id number] [place] [address] Feb, [facility] [place] [facility] [address] [id number] [place] [address] Feb, [facility] [place] [facility] [address] [id number] [place] [address] Feb, [facility] [place] [facility] [address] [id number] [place] [address] 16 Feb, 2012 [facility] [place] [facility] [address] [id number] [place] [address] Feb, [facility] [place] [facility] [address] [id number] [place] [address] Feb, [facility] [place] [facility] [address] [id number] [place] [address] Feb, [facility] [place] [facility] [address] [id number] [place] [address] Feb, [facility] [place] [facility] [address] [id number], [place] [address] Feb, [facility] [place] [facility] [address] [id number], [place] [address] Feb, [facility] [place] [facility] [address] [id number] [place] [address] Feb, [facility] [place] [facility] [address] [id number] [place] [address] Feb, [facility] [place] [facility] [address] [id number] [place] [address] 31 Jan, 2012 [facility] [place] [facility] [address] [id number] [place] [address] Jan, [facility] [place] [facility] [address] [id number] [place] [address] Jan, [facility] [place] [facility] [address] [id number] [place] [address] Jan, [facility] [place] [facility] [address] [id number] [place] [address] Jan, [facility] [place] [facility] [address] [id number] [place] [address] Jan, [facility] [place] [facility] [address] [id number] [place] [address] Jan, [facility] [place] [facility] [address] [id number] [place] [address] Jan, [facility] [place] [facility] [address] [id number] [place] [address] Jan, [facility] [place] [facility] [address] [id number] [place] [address] Jan, [facility] [place] [facility] [address] [id number] [place] [address] Dec, [facility] [place] [facility] [address] [id number] [place] [address] Dec, [facility] [place] [facility] [address] [id number] [place] [address] Dec, [facility] [place] [facility] [address] [id number] [place] [address] Dec, [facility] [place] [facility] [address] [id number] [place] [address] Nov, [facility] [place] [facility] [address] [id number] [place] [address] Nov, [facility] [place] [facility] [address] [id number] [place] [address] Nov, [facility] [place] [facility] [address] [id number] [place] [address] Nov, [facility] [place] [facility] [address] [id number] [place] [address] Nov, [facility] [place] [facility] [address] [id number] [place] [address] Nov, [facility] [place] [facility] [address] [id number] [place] [address] Oct, [facility] [place] [facility] [address] [id number] [place] [address] Oct, [facility] [place] [facility] [address] [id number] [place] [address] Oct, [facility] [place] [facility] [address] [id number] [place] [address] Oct, [facility] [place] [facility] [address] [id number] [place] [address] Oct, [facility] [place] [facility] [address] [id number] [place] [address] Sep, [facility] [place] [facility] [address] [id number] [place] [address] Sep, [facility] [place] [facility] [address] [id number] [place] [address] Sep, [facility] [place] [facility] [address] [id number], [place] [address] Sep, [facility] [place] [facility] [address] [id number] [place] [address] Sep, [facility] [place] [facility] [address] [id number] [place] [address] August, [facility] [place] [facility] [address] [id number] [place] [address] August, [facility] [place] [facility] [address] [id number], [place] [address] August, [facility] [address] [id number] [place] [address] August, [facility] [place] [facility] [address] [id number] [place] [address] Jul, [facility] [address] [id number] [place] [address] 24 Jul, 2011 [facility] [address] [id number] [place] [address] Jul, [facility] [address] [id number] [place] [address] Jul, [facility] [address] [id number] [place] [address] Jul, [facility] [address] [id number] [place] [address] Jul, [facility] [address] [id number] [place] [address] Jul, [facility] [address] [id number] [place] [address] Jul, [facility] [address] [id number] [place] [address] Jul, [facility] [address] [id number] [place] [address] Jul, [facility] [place] [facility] [address] [id number] [place] [address] 05 Jul, 2011 [facility] [place] [facility] [address] [id number] [place] [address] Jul, [facility] [place] [facility] [address] [id number] [place] [address] Jul, [facility] [place] [facility] [address] [id number] [place] [address] Jul, [facility] [place] [facility] [address] [id number] [place] [address] 28 Jun, 2011 [facility] [place] [facility] [address] [id number] [place] [address] 27 Jun, 2011 [facility] [place] [facility] [address] [id number] [place] [address] 20 Jun, 2011 [facility] [place] [facility] [address] [id number] [place] [address] 16 Jun, 2011 [facility] [place] [facility] [address] [id number] [place] [address] 27 May, 2011 [facility] [place] [facility] [address] [id number] [place] [address] 16 May, 2011 [facility] [place] [facility] [address] [id number] [place] [address] May, [facility] [place] [facility] [address] [id number] [place] [address] Apr, [facility] [place] [facility] [address] [id number] [place] [address] 18 Apr, 2011 [facility] [place] [facility] [address] [id number] [place] [address] Apr, [facility] [place] [facility] [address] [id number] [place] [address] Apr, [facility] [place] [facility] [address] [id number] [place] [address] Apr, [facility] [place] [facility] [address] [id number] [place] [address] Mar, [facility] [place] [facility] [address] [id number] [place] [address] Mar, [facility] [place] [facility] [address] [id number] [place] [address] Mar, [facility] [place] [facility] [address] [id number], [place] [address] 20 Mar, 2011 [facility] [place] [facility] [address] [id number] [place] [address] 16 Mar, 2011 [facility] [place] [facility] [address] [id number] [place] [address] 09 Mar, 2011 [facility] [place] [facility] [address] [id number] [place] [address] 05 Mar, 2011 [facility] [place] [facility] [address] [id number], [place] [address] 29 Feb, 2011 [facility] [place] [facility] [address] [id number] [place] [address] Feb, [facility] [place] [facility] [address] [id number] [place] [address] Feb, [facility] [place] [facility] [address] [id number] [place] [address] Feb, [facility] [place] [facility] [address] [id number], [place] [address] 16 Feb, 2011 [facility] [place] [facility] [address] [id number], [place] [address] 14 Feb, 2011 [facility] [place] [facility] [address] [id number] [place] [address] Feb, [facility] [place] [facility] [address] [id number], [place] [address] 31 Jan, 2011 [facility] [place] [facility] [address] [id number], [place] [address] 31 Jan, 2011 [facility] [place] [facility] [address] [id number] [place] [address] 31 Jan, 2011 [facility] [place] [facility] [address] [id number], [place] [address] 18 Jan, 2011 [facility] [place] [facility] [address] [id number], [place] [address] 17 Jan, 2011 [facility] [place] [facility] [address] [id number] [place] [address] 17 Jan, 2011 [facility] [address] [id number] [place] [address] 17 Jun, 2010 [facility] [address] [id number] [place] [address] 30 Mar, 2010 [facility] [address] [id number] [place] [address] 20 Mar, 2010 [facility] [address] [id number] [place] [address] 14 Mar, 2010 [facility] [address] [id number] [place] [address] 14 Mar, 2010 [facility] [address] [id number] [place] [address] 13 Mar, 2010 [facility] [address] [facility] [id number] [place] [address] 07 Mar, 2010 [facility] [address] [id number] [place] [address] 02 Mar, 2010 [facility] [address] [facility] [id number] [place] [address] 01 Mar, 2010 [facility] [address] [facility] [id number] [place] [address] 30 Feb, 2010 [facility] [address] [id number] [place] [address] 29 Feb, 2010 [facility] [address] [id number] [place] [address] 17 Feb, 2010 [facility] [address] [id number] [place] [address] 17 Feb, 2010 [facility] [address] [facility] [id number] [place] [address] 16 Feb, 2010 [facility] [address] [facility] [id number] [place] [address] Feb, [facility] [place] [facility] [address] [id number] [place] [address] Feb, [facility] [place] [facility] [address] [id number] [place] [address] Feb, [facility] [place] [facility] [address] [id number] [place] [address] Jan, [facility] [place] [facility] [address] [id number] [place] [address] Jan, [facility] [place] [facility] [address] [id number] [place] [address] Jan, [facility] [place] [facility] [address] [id number] [place] [address] Jan, [facility] [place] [facility] [address] [facility] [id number] [place] [address] 29 Mar, 2009 [facility] [place] [facility] [address] [id number], [place] [address] 22 Mar, 2009 [facility] [place] [facility] [address] [facility] [facility] [id number] [address] Mar, [facility] [address] [facility] [id number], [place] [address] 19 Mar, 2009 [facility] [address] [facility] [id number], [place] [address] 14 Mar, 2009 [facility] [address] [facility] [id number], [place] [address] 10 Mar, 2009 [facility] [address] [facility] [id number], [place] [address] 18 Feb, 2009 [facility] [address] [facility] [id number], [place] [address] 18 Feb, 2009 [facility] [address] [facility] [id number], [place] [address] 13 Jan, 2009 [facility] [address] [id number], [place] [address] Sep, [facility] [address] [facility] [id number] [place] [address] May, IMMUNIZATIONS No Known Immunizations SOCIAL HISTORY Never Assessed REASON FOR VISIT EMR-[facility] PLAN OF CARE VITAL SIGNS MEDICATIONS Unknown [...] Surgical History Left ear surgery Hospitalization History [facility] in [place]- Spontaneous Pneumothorax Hospitalization History [facility] Colon resection Hospitalization History [facility] - diarrhea/ couldnt urinate nov 2017
--- OUTSIDE RECORDS SUMMARY | 2018-10-15 01:16 | XMS REPORT ---
Author Author AGUSTÍN PRATER Organization [facility] Address [address] [place] [address] Care Team Providers Care Hot Die Picker Name Role Phone AGUSTÍN PRATER Unavailable PROBLEMS Type Condition ICD9-CM Code FEN15-PB Code Onset Dates Condition Status SNOMED Code Problem Anxiety F41.9 Active 48718145 Problem Chronic pain G89.29 Active 14955598 Problem Constipation K59.00 Active 79928411 Problem Insomnia G47.00 Active 252162300 Problem HTN (hypertension) I10 Active 77452342 Problem Chronic kidney disease, stage III (moderate) N18.3 Active 026946057 Problem Primary insomnia F51.01 Active 6919214 Problem Thoracic back pain, unspecified back pain laterality, unspecified chronicity M54.6 Active 959667500 Problem Hyperlipidemia E78.5 Active 61958853 Problem Environmental allergies Z91.09 Active 940816545 Problem Vitamin D deficiency E55.9 Active 67305685 ALLERGIES No Information ENCOUNTERS Encounter Location Date Diagnosis [place] [id number] [place] [address] 17 Mar, 2018 [place] [address] [place] [id number] [place] [address] 10 Mar, 2018 Anxiety F41.9 and Thoracic back pain, unspecified back pain laterality, unspecified chronicity M54.6 [place] [address] [place] [id number] [place] [address] 14 Feb, 2018 Anxiety F41.9 and Thoracic back pain, unspecified back pain laterality, unspecified chronicity M54.6 [place] [address] [place] [id number] [place] [address] 07 Feb, 2018 Thoracic back pain, unspecified back pain laterality, unspecified chronicity M54.6 [place] [address] [place] [address] Jan, [facility] [address] [place] [id number] [place] [address] Jan, Anxiety F41.9 and Thoracic back pain, unspecified back pain laterality, unspecified chronicity M54.6 [place] [address] [id number] [place] [address] 19 Dec, 2017 Diarrhea of presumed infectious origin R19.7 [facility] [address] [place] [id number] [place] [address] 19 Dec, 2017 Diarrhea of presumed infectious origin R19.7 [place] [address] [place] [id number] [place] [address] 18 Dec, 2017 Thoracic back pain, unspecified back pain laterality, unspecified chronicity M54.6 [place] [address] [place] [id number] [place] [address] Dec, [place] [address] [place] [id number] [place] [address] Dec, Anxiety F41.9 and Thoracic back pain, unspecified back pain laterality, unspecified chronicity M54.6 [place] [address] [place] [id number] [place] [address] 13 Dec, 2017 Diarrhea of presumed infectious origin R19.7 [place] [address] [place] [id number] [place] [address] Dec, [place] [address] [place] [id number] [place] [address] Dec, Anxiety F41.9 and Thoracic back pain, unspecified back pain laterality, unspecified chronicity M54.6 [place] [address] [place] [id number] [place] [address] Dec, Anxiety F41.9 and Thoracic back pain, unspecified back pain laterality, unspecified chronicity M54.6 [facility] [address] [place] [id number] Dec, Diarrhea of presumed infectious origin R19.7 ; Anxiety F41.9 ; Thoracic back pain, unspecified back pain laterality, unspecified chronicity M54.6 and HTN (hypertension) I10 [place] [id number] [place] [address] Dec, Anxiety F41.9 [facility] [address] [place] [id number] Dec, Anxiety F41.9 ; Diarrhea of presumed infectious origin R19.7 ; Generalized abdominal pain R10.84 and Localized edema R60.0 [place] [id number] [place] [address] Nov, Via [employer] [address] [place] [id number] Nov, Anxiety F41.9 ; Urinary retention R33.9 ; Diarrhea of presumed infectious origin R19.7 ; Weakness R53.1 ; Acute kidney failure, unspecified N17.9 ; Chronic kidney disease, stage III (moderate) N18.3 and Thoracic back pain, unspecified back pain laterality, unspecified chronicity M54.6 [place] [address] [place] [id number] [place] [address] Oct, Thoracic back pain, unspecified back pain laterality, unspecified chronicity M54.6 and Anxiety F41.9 [place] [address], [place] [address] Sep, Thoracic back pain, unspecified back pain laterality, unspecified chronicity M54.6 and Anxiety F41.9 [place] [id number] [place] [address] Sep, Thoracic back pain, unspecified back pain laterality, unspecified chronicity M54.6 ; Anxiety F41.9 and Encounter for medication monitoring Z51.81 [place] [id number] [place] [address] August, [place] [address] [place] [id number] [place] [address] August, Thoracic back pain, unspecified back pain laterality, unspecified chronicity M54.6 and Anxiety F41.9 [place] [address] [place] [id number] [place] [address] August, Hyperlipidemia E78.5 and HTN (hypertension) I10 [place] [address] [place] [id number] [place] [address] August, [place] [address] [address] August, Medicare welcome exam Z00.00 ; Chronic kidney failure N18.9 ; Anxiety F41.9 ; Chronic pain G89.29 ; Insomnia G47.00 ; Hyperlipidemia E78.5 ; HTN (hypertension) I10 and Thoracic back pain, unspecified back pain laterality, unspecified chronicity M54.6 [place] [address] [address] Jul, [place] [address] [address] Jul, [place] [address] [address] Jul, [place] [address] [place] [id number] [place] [address] Jul, Anxiety F41.9 [place] [address] [place] [id number] [place] [address] Jul, Thoracic back pain, unspecified back pain laterality, unspecified chronicity M54.6 and Anxiety F41.9 [place] [address] [place] [id number] [place] [address] Jun, Thoracic back pain, unspecified back pain laterality, unspecified chronicity M54.6 and Anxiety F41.9 [place] [address] [place] [id number] [place] [address] May, Thoracic back pain, unspecified back pain laterality, unspecified chronicity M54.6 and Anxiety F41.9 [place] [address] [place] [id number] [place] [address] Apr, Thoracic back pain, unspecified back pain laterality, unspecified chronicity M54.6 and Anxiety F41.9 [place] [address] [place] [id number] [place] [address] Mar, [place] [address] [address] Mar, Thoracic back pain, unspecified back pain laterality, unspecified chronicity M54.6 and Anxiety F41.9 [place] [address] [address] Mar, Thoracic back pain, unspecified back pain laterality, unspecified chronicity M54.6 ; HTN (hypertension) I10 ; Hyperlipidemia E78.5 and Anxiety F41.9 [place] [address] [place] [id number] [place] [address] Feb, Thoracic back pain, unspecified back pain laterality, unspecified chronicity M54.6 and Anxiety F41.9 [place] [address] [place] [id number] [place] [address] Nov, [place] [address] [place] [id number] [place] [address] Oct, [place] [address] [place] [id number] [place] [address] Oct, Thoracic back pain, unspecified back pain laterality, unspecified chronicity M54.6 [place] [address] [place] [id number] [place] [address] Oct, HTN (hypertension) I10 ; Constipation K59.00 ; Hyperlipidemia E78.5 ; Thoracic back pain, unspecified back pain laterality, unspecified chronicity M54.6 ; Chronic pain G89.29 ; Anxiety F41.9 ; Chronic kidney failure N18.9 ; Environmental allergies Z91.09 ; Vitamin D deficiency E55.9 and Primary insomnia F51.01 [facility] [address] [place] [address] Sep, Anxiety F41.9 [facility] [address] [place] [id number] [place] [address], [place] [address] Sep, [facility] [address] [place] [address] [id number] [place] [address], [place] [address] August, Anxiety F41.9 [facility] [address] [place] [address] [id number] [place] [address], [place] [address] August, [facility] [address] [place] [address] [id number] [place] [address], [place] [address] Jul, Anxiety F41.9 [facility] [address] [place] [address] [id number] [place] [address], [place] [address] Jul, [facility] [address] [place] [address] [id number] [place] [address] Jun, Anxiety F41.9 [facility] [id number] [place] [address], [place] [address] Jun, [facility] [address] [place] [id number] [place] [address], [place] [address] May, [facility] [address] [address] May, [facility] [address] [place] [address] May, [facility] [address] [address] Apr, [facility] [address] [place] [id number] [place] [address] Apr, [facility] [address] [address] Apr, Anxiety F41.9 [facility] [address] [place] [address] Apr, Anxiety F41.9 [facility] [address] [place] [id number] [place] [address] Apr, [facility] [address] [place] [id number] [place] [address] Mar, HTN (hypertension) I10 ; Tremor R25.1 ; Hypercholesterolemia E78.0 ; Constipation K59.00 ; Chronic pain G89.29 ; Hyperlipidemia E78.5 ; Insomnia G47.00 ; Anxiety F41.9 and Thoracic back pain, unspecified back pain laterality, unspecified chronicity M54.6 [facility] [address] [place] [id number] [place] [address] Mar, Tremor R25.1 ; HTN (hypertension) I10 ; Hypercholesterolemia E78.0 ; Constipation K59.00 ; Chronic pain G89.29 ; Hyperlipidemia E78.5 ; Insomnia G47.00 ; Anxiety F41.9 and Thoracic back pain, unspecified back pain laterality, unspecified chronicity M54.6 [facility] [address] [place] [id number] [place] [address] Mar, [facility] [address] [place] [id number] [place] [address] Mar, [facility] [address] [place] [id number] [place] [address] Feb, [facility] [address] [place] [id number] [place] [address] Jan, [facility] [address] [place] [id number] [place] [address] Jan, [facility] [address] [place] [id number] [place] [address] Dec, [facility] [address] [place] [id number] [place] [address] Nov, [facility] [address] [place] [id number] [place] [address] Nov, [facility] [address], [place] [address] Oct, Anxiety F41.9 [facility] [address] [place] [id number] [place] [address] Oct, Chronic pain G89.29 [facility] [address] [place] [id number] [place] [address] Sep, [facility] [address] [place] [id number] [place] [address] Sep, [facility] [address] [id number] [place] [address] Sep, [facility] [address] [place] [id number] [place] [address] Sep, [facility] [address] [place] [id number] [place] [address] Sep, Chronic pain syndrome G89.4 [facility] [address] [place] [id number] [place] [address] Sep, HTN (hypertension) I10 ; Chronic pain G89.29 ; Hypercholesterolemia E78.0 ; Chronic kidney failure N18.9 ; Constipation, unspecified constipation type K59.00 ; Anxiety F41.9 and Thoracic back pain, unspecified back pain laterality, unspecified chronicity M54.6 [facility] [address] [place] [address] August, Chronic pain syndrome G89.4 [facility] [address] [place] [id number] [place] [address] August, Chronic pain syndrome G89.4 [facility] [address] [place] [id number] [place] [address] Jul, Anxiety disorder, unspecified F41.9 and Chronic pain syndrome G89.4 [facility] [address] [place] [address] Jul, Insomnia, unspecified G47.00 and Chronic pain syndrome G89.4 [facility] [address] [place] [id number] [place] [address] Jul, Allergic rhinitis J30.9 [facility] [address] [id number] [place] [address] Jul, Constipation, unspecified K59.00 [facility] [address] [id number] [place] [address] Jul, [facility] [address] [place] [id number] [place] [address] Jun, [facility] [address] [id number] [place] [address] Jun, [facility] [address] [id number] [place] [address] Jun, [facility] [address] [id number] [place] [address] Jun, [facility] [address] [id number] [place] [address] Jun, [facility] [address] [place] [id number] [place] [address] Jun, [facility] [address] [id number] [place] [address] May, [facility] [address] [place] [id number] [place] [address] May, [facility] [address] [place] [address] May, Anxiety F41.9 ; Insomnia G47.00 ; Hyperlipidemia E78.5 ; Chronic pain G89.29 ; HTN (hypertension) I10 ; Environmental allergies V15.09 and Constipation 564.00 [facility] [address] [place] [id number] [place] [address] Apr, [facility] [address], [place] [address] Apr, [facility] [address] [place] [id number] [place] [address] Apr, [facility] [address] [place] [id number] [place] [address] Mar, [facility] [address] [place] [id number] [place] [address] Mar, [facility] [address] [place] [id number] [place] [address] Mar, [facility] [address] [place] [id number] [place] [address] Feb, [facility] [address] [id number] [place] [address] Feb, [facility] [address] [id number] [place] [address] Feb, [facility] [address] [place] [address] Jan, HTN (hypertension) I10 ; Constipation K59.00 ; Chronic pain G89.29 ; Hyperlipidemia E78.5 ; Hypercholesterolemia E78.0 ; Insomnia G47.00 and Anxiety F41.9 [facility] [address], [place] [address] Jan, [facility] [address] [place] [address] Dec, [facility] [address] [place] [address] Nov, [facility] [id number] [place] [address] Oct, Chronic kidney disease, unspecified 585.9 ; Chronic pain syndrome 338.4 ; Hyperlipidemia 272.4 and Essential hypertension 401.9 [facility] [id number] [place] [address] Oct, Chronic kidney disease 585.9 [facility] [address], [place] [address] Oct, [facility] [address], [place] [address] Oct, Chronic kidney disease, unspecified 585.9 ; Hypercalcemia 275.42 ; Hyperlipidemia 272.4 ; Essential hypertension 401.9 ; Chronic pain syndrome 338.4 ; Insomnia 780.52 ; Constipation 564.00 ; Environmental allergies V15.09 and Anxiety 300.00 [facility] [address], [place] [address] Oct, Chronic kidney disease 585.9 [facility] [address], [place] [address] Oct, [facility] [address] [place] [address] Oct, Chronic kidney disease 585.9 and Hyperlipidemia 272.4 [facility] [address], [place] [address] Oct, [facility] [address], [place] [address] Oct, [facility] [address], [place] [address] Sep, [facility] [address], [place] [address] Sep, [facility] [address], [place] [address] Sep, Chronic kidney disease 585.9 and Hyperlipidemia 272.4 [facility] [address], [place] [address] Sep, [facility] [address], [place] [address] August, [facility] [address] [place] [address] 14 Aug, 2014 [facility] [place] [facility] [address] [id number] [place] [address] 14 Jul, 2014 [facility] [place] [facility] [address] [id number] [place] [address] 13 Jul, 2014 [facility] [place] [facility] [address] [id number] [place] [address] Jun, [facility] [place] [facility] [address] [id number] [place] [address] Jun, [facility] [place] [facility] [address] [id number] [place] [address] Jun, [facility] [place] [facility] [address] [id number] [place] [address] Jun, [facility] [place] [facility] [address] [id number] [place] [address] Jun, [facility] [place] [facility] [address] [id number] [place] [address] Jun, [facility] [place] [facility] [address] [id number] [place] [address] Jun, [facility] [place] [facility] [address] [id number] [place] [address] Jun, [facility] [place] [facility] [address] [id number] [place] [address] May, [facility] [place] [facility] [address] [id number] [place] [address] 16 May, 2014 [facility] [place] [facility] [address] [id number] [place] [address] May, [facility] [place] [facility] [address] [id number] [place] [address] May, [facility] [place] [facility] [address] [id number] [place] [address] Apr, [facility] [place] [facility] [address] [id number] [place] [address] Apr, [facility] [place] [facility] [address] [id number] [place] [address] Apr, [facility] [place] [facility] [address] [id number] [place] [address] Apr, [facility] [place] [facility] [address] [id number] [place] [address] Apr, [facility] [place] [facility] [address] [id number] [place] [address] Apr, [facility] [place] [facility] [address] [id number] [place] [address] Apr, [facility] [place] [facility] [address] [id number] [place] [address] Apr, [facility] [place] [facility] [address] [id number] [place] [address] Apr, [facility] [place] [facility] [address] [id number] [place] [address] Apr, [facility] [place] [facility] [address] [id number] [place] [address] Apr, [facility] [place] [facility] [address] [id number] [address] Mar, [facility] [place] [facility] [address] [id number] [address] Mar, [facility] [place] [facility] [address] [id number] [place] [address] Feb, [facility] [place] [facility] [address] [id number] [place] [address] Feb, [facility] [place] [facility] [address] [id number] [place] [address] Feb, [facility] [place] [facility] [address] [id number] [place] [address] Feb, [facility] [place] [facility] [address] [id number] [place] [address] Feb, [facility] [place] [facility] [address] [id number] [place] [address] Feb, [facility] [place] [facility] [address] [id number] [place] [address] Feb, [facility] [place] [facility] [address] [id number] [place] [address] Feb, [facility] [place] [facility] [address] [id number] [place] [address] Feb, [facility] [place] [facility] [address] [id number] [place] [address] Feb, [facility] [place] [facility] [address] [id number] [place] [address] Jan, [facility] [place] [facility] [address] [id number] [place] [address] Jan, [facility] [place] [facility] [address] [id number] [place] [address] Jan, [facility] [place] [facility] [address] [id number] [place] [address] Jan, [facility] [place] [facility] [address] [id number] [place] [address] Jan, [facility] [place] [facility] [address] [id number] [place] [address] 24 Jan, 2014 [facility] [place] [facility] [address] [id number] [place] [address] Jan, [facility] [place] [facility] [address] [id number] [place] [address] Jan, [facility] [place] [facility] [address] [id number] [place] [address] 16 Jan, 2014 [facility] [place] [facility] [address] [id number] [place] [address] Jan, [facility] [place] [facility] [address] [id number] [place] [address] Jan, [facility] [place] [facility] [address] [id number] [place] [address] Dec, [facility] [place] [facility] [address] [id number] [place] [address] Dec, [facility] [place] [facility] [address] [id number] [place] [address] Dec, [facility] [place] [facility] [address] [id number] [place] [address] Dec, [facility] [place] [facility] [address] [id number] [place] [address] Dec, [facility] [place] [facility] [address] [id number] [place] [address] Dec, [facility] [place] [facility] [address] [id number] [place] [address] Dec, [facility] [place] [facility] [address] [id number] [place] [address] Dec, [facility] [place] [facility] [address] [id number] [place] [address] Nov, [facility] [place] [facility] [address] [id number] [place] [address] Nov, [facility] [place] [facility] [address] [id number] [place] [address] Nov, [facility] [place] [facility] [address] [id number] [place] [address] Nov, [facility] [place] [facility] [address] [id number] [place] [address] Nov, [facility] [place] [facility] [address] [id number] [place] [address] Nov, [facility] [place] [facility] [address] [id number] [place] [address] Nov, [facility] [place] [facility] [address] [id number] [place] [address] Nov, [facility] [place] [facility] [address] [id number] [place] [address] Oct, [facility] [place] [facility] [address] [id number] [place] [address] Oct, [facility] [place] [facility] [address] [id number] [place] [address] Oct, [facility] [place] [facility] [address] [id number] [place] [address] Oct, [facility] [place] [facility] [address] [id number] [place] [address] Sep, [facility] [place] [facility] [address] [id number] [place] [address] Sep, [facility] [place] [facility] [address] [id number] [place] [address] Sep, [facility] [place] [facility] [address] [id number] [place] [address] Sep, [facility] [place] [facility] [address] [id number] [place] [address] Sep, [facility] [place] [facility] [address] [id number] [place] [address] Sep, [facility] [place] [facility] [address] [id number] [place] [address] Sep, [facility] [place] [facility] [address] [id number] [place] [address] Sep, [facility] [place] [facility] [address] [id number] [place] [address] August, [facility] [place] [facility] [address] [id number] [place] [address] August, [facility] [address] [id number] [place] [address] August, [facility] [address] [id number] [place] [address] August, [facility] [address] [id number] [place] [address] August, [facility] [address] [id number] [place] [address] August, [facility] [address] [id number] [place] [address] August, [facility] [address] [id number] [place] [address] August, [facility] [address] [id number] [place] [address] August, [facility] [address] [id number] [place] [address] August, [facility] [address] [id number] [place] [address] Jul, [facility] [address] [id number] [place] [address] Jul, [facility] [address] [id number] [place] [address] Jul, [facility] [address] [id number] [place] [address] Jul, [facility] [place] [facility] [address] [id number] [place] [address] Jul, [facility] [place] [facility] [address] [id number] [place] [address] Jul, [facility] [address] [id number] [place] [address] Jul, [facility] [place] [facility] [address] [id number] [place] [address] Jul, [facility] [place] [facility] [address] [id number] [place] [address] Jun, [facility] [place] [facility] [address] [id number] [place] [address] Jun, [facility] [place] [facility] [address] [id number] [place] [address] Jun, [facility] [place] [facility] [address] [id number] [place] [address] Jun, [facility] [place] [facility] [address] [id number] [place] [address] Jun, [facility] [place] [facility] [address] [facility] [id number] [place] [address] Jun, [facility] [place] [facility] [address] [id number] [place] [address] May, [facility] [place] [facility] [address] [id number] [place] [address] May, [facility] [place] [facility] [address] [facility] [id number] [place] [address] May, [facility] [place] [facility] [address] [id number] [place] [address] May, [facility] [place] [facility] [address] [id number] [place] [address] May, [facility] [place] [facility] [address] [id number] [place] [address] May, [facility] [place] [facility] [address] [id number] [place] [address] May, [facility] [place] [facility] [address] [facility] [id number] [place] [address] Apr, [facility] [place] [facility] [address] [id number] [place] [address] Apr, [facility] [address] [id number] [place] [address] Apr, [facility] [address] [id number] [place] [address] 14 Apr, 2013 [facility] [address] [id number] [place] [address] Apr, [facility] [address] [id number] [place] [address] Apr, [facility] [address] [id number] [place] [address] Mar, [facility] [address] [id number] [place] [address] Mar, [facility] [address] [id number] [place] [address] Mar, [facility] [address] [id number] [place] [address] Mar, [facility] [address] [id number] [place] [address] Mar, [facility] [address] [id number] [place] [address] Mar, [facility] [address] [id number] [place] [address] 16 Mar, 2013 [facility] [address] [id number] [place] [address] 16 Mar, 2013 [facility] [address] [id number] [place] [address] 12 Mar, 2013 [facility] [address] [id number] [place] [address] Mar, [facility] [address] [id number] [place] [address] Feb, [facility] [place] [facility] [address] [id number] [place] [address] Feb, [facility] [place] [facility] [address] [id number] [place] [address] Feb, [facility] [place] [facility] [address] [id number] [place] [address] Feb, [facility] [place] [facility] [address] [id number] [place] [address] Feb, [facility] [place] [facility] [address] [id number] [place] [address] Feb, [facility] [place] [facility] [address] [id number] [place] [address] Feb, [facility] [place] [facility] [address] [id number] [place] [address] Feb, [facility] [place] [facility] [address] [id number], [place] [address] Feb, [facility] [place] [facility] [address] [id number], [place] [address] Feb, [facility] [place] [facility] [address] [id number], [place] [address] Jan, [facility] [place] [facility] [address] [id number], [place] [address] Jan, [facility] [place] [facility] [address] [id number], [place] [address] Jan, [facility] [place] [facility] [address] [id number], [place] [address] Jan, [facility] [place] [facility] [address] [id number], [place] [address] Jan, [facility] [place] [facility] [address] [id number], [place] [address] Jan, [facility] [place] [facility] [address] [id number], [place] [address] Jan, [facility] [address] [id number] [place] [address] Jan, [facility] [place] [facility] [address] [id number] [place] [address] Jan, [facility] [place] [facility] [address] [id number] [place] [address] Dec, [facility] [place] [facility] [address] [id number] [place] [address] Dec, [facility] [place] [facility] [address] [id number] [place] [address] Dec, [facility] [place] [facility] [address] [id number] [place] [address] Dec, [facility] [place] [facility] [address] [id number] [place] [address] Nov, [facility] [place] [facility] [address] [id number] [place] [address] Nov, [facility] [place] [facility] [address] [id number] [place] [address] Nov, [facility] [place] [facility] [address] [id number] [place] [address] Nov, [facility] [place] [facility] [address] [id number] [place] [address] Nov, [facility] [place] [facility] [address] [id number] [place] [address] Nov, [facility] [place] [facility] [address] [id number] [place] [address] Oct, [facility] [place] [facility] [address] [id number] [place] [address] Oct, [facility] [place] [facility] [address] [id number] [place] [address] Oct, [facility] [place] [facility] [address] [id number] [place] [address] 08 Oct, 2012 [facility] [address] [id number] [place] [address] 27 Sep, 2012 [facility] [place] [facility] [address] [id number] [place] [address] Sep, [facility] [address] [id number] [place] [address] 17 Sep, 2012 [facility] [place] [facility] [address] [id number] [place] [address] 14 Sep, 2012 [facility] [address] [id number] [place] [address] Sep, [facility] [address] [id number] [place] [address] August, [facility] [address] [id number] [place] [address] August, [facility] [address] [id number] [place] [address] Jul, [facility] [address] [id number] [place] [address] Jul, [facility] [address] [id number] [place] [address] 15 Jul, 2012 [facility] [place] [facility] [address] [id number] [place] [address] 09 Jul, 2012 [facility] [place] [facility] [address] [id number] [place] [address] 08 Jul, 2012 [facility] [place] [facility] [address] [id number] [place] [address] 26 Jun, 2012 [facility] [place] [facility] [address] [id number] [place] [address] 20 Jun, 2012 [facility] [place] [facility] [address] [id number] [place] [address] Jun, [facility] [address] [id number] [place] [address] Jun, [facility] [place] [facility] [address] [id number] [place] [address] Jun, [facility] [place] [facility] [address] [id number] [place] [address] May, [facility] [place] [facility] [address] [id number] [place] [address] May, [facility] [place] [facility] [address] [id number] [place] [address] May, [facility] [place] [facility] [address] [id number] [place] [address] May, [facility] [address] [id number] [place] [address] May, [facility] [place] [facility] [address] [id number] [place] [address] 14 May, 2012 [facility] [place] [facility] [address] [id number] [place] [address] May, [facility] [place] [facility] [address] [id number] [place] [address] 08 May, 2012 [facility] [place] [facility] [address] [id number] [place] [address] May, [facility] [place] [facility] [address] [id number] [place] [address] Apr, [facility] [place] [facility] [address] [id number] [place] [address] Apr, [facility] [place] [facility] [address] [id number] [place] [address] Apr, [facility] [place] [facility] [address] [id number] [place] [address] Apr, [facility] [place] [facility] [address] [id number] [place] [address] Apr, [facility] [place] [facility] [address] [id number] [place] [address] Mar, [facility] [place] [facility] [address] [id number] [place] [address] Mar, [facility] [place] [facility] [address] [id number] [place] [address] Mar, [facility] [place] [facility] [address] [id number] [place] [address] Mar, [facility] [place] [facility] [address] [id number] [place] [address] Mar, [facility] [place] [facility] [address] [id number] [place] [address] Mar, [facility] [place] [facility] [address] [id number] [place] [address] Mar, [facility] [place] [facility] [address] [id number] [place] [address] Mar, [facility] [place] [facility] [address] [id number] [place] [address] Mar, [facility] [place] [facility] [address] [id number] [place] [address] Mar, [facility] [place] [facility] [address] [id number] [place] [address] Feb, [facility] [place] [facility] [address] [id number] [place] [address] Feb, [facility] [place] [facility] [address] [id number] [place] [address] Feb, [facility] [place] [facility] [address] [id number] [place] [address] Feb, [facility] [place] [facility] [address] [id number] [place] [address] Feb, [facility] [place] [facility] [address] [id number] [place] [address] Feb, [facility] [place] [facility] [address] [id number] [place] [address] Feb, [facility] [place] [facility] [address] [id number] [place] [address] Feb, [facility] [place] [facility] [address] [id number] [place] [address] Feb, [facility] [place] [facility] [address] [id number] [place] [address] Feb, [facility] [place] [facility] [address] [id number] [place] [address] Feb, [facility] [place] [facility] [address] [id number] [place] [address] Feb, [facility] [place] [facility] [address] [id number], [place] [address] Feb, [facility] [place] [facility] [address] [id number], [place] [address] Feb, [facility] [place] [facility] [address] [id number], [place] [address] Feb, [facility] [place] [facility] [address] [id number], [place] [address] Feb, [facility] [place] [facility] [address] [id number], [place] [address] Feb, [facility] [place] [facility] [address] [id number], [place] [address] Feb, [facility] [place] [facility] [address] [id number], [place] [address] Jan, [facility] [place] [facility] [address] [id number], [place] [address] Jan, [facility] [place] [facility] [address] [id number] [place] [address] Jan, [facility] [place] [facility] [address] [id number] [place] [address] Jan, [facility] [place] [facility] [address] [id number] [place] [address] Jan, [facility] [place] [facility] [address] [id number] [place] [address] Jan, [facility] [place] [facility] [address] [id number] [place] [address] Jan, [facility] [place] [facility] [address] [id number] [place] [address] Jan, [facility] [place] [facility] [address] [id number] [place] [address] Jan, [facility] [place] [facility] [address] [id number] [place] [address] Jan, [facility] [place] [facility] [address] [id number] [place] [address] 24 Dec, 2011 [facility] [place] [facility] [address] [id number] [place] [address] 18 Dec, 2011 [facility] [place] [facility] [address] [facility] [id number] [place] [address] Dec, [facility] [place] [facility] [address] [id number] [place] [address] 04 Dec, 2011 [facility] [place] [facility] [address] [id number] [place] [address] 29 Nov, 2011 [facility] [place] [facility] [address] [id number] [place] [address] Nov, [facility] [place] [facility] [address] [id number] [place] [address] Nov, [facility] [place] [facility] [address] [id number] [place] [address] Nov, [facility] [place] [facility] [address] [id number] [place] [address] Nov, [facility] [place] [facility] [address] [id number] [place] [address] Nov, [facility] [place] [facility] [address] [id number] [place] [address] Oct, [facility] [place] [facility] [address] [id number] [place] [address] Oct, [facility] [address] [id number] [place] [address] Oct, [facility] [place] [facility] [address] [id number] [place] [address] Oct, [facility] [address] [id number] [place] [address] Oct, [facility] [place] [facility] [address] [id number] [place] [address] Sep, [facility] [place] [facility] [address] [id number] [place] [address] Sep, [facility] [place] [facility] [address] [id number] [place] [address] Sep, [facility] [place] [facility] [address] [id number] [place] [address] Sep, [facility] [place] [facility] [address] [id number] [place] [address] Sep, [facility] [place] [facility] [address] [id number] [place] [address] August, [facility] [place] [facility] [address] [id number] [place] [address] August, [facility] [place] [facility] [address] [id number] [place] [address] August, [facility] [place] [facility] [address] [id number] [place] [address] August, [facility] [place] [facility] [address] [id number] [place] [address] Jul, [facility] [place] [facility] [address] [id number] [place] [address] 24 Jul, 2011 [facility] [place] [facility] [address] [id number] [place] [address] Jul, [facility] [place] [facility] [address] [id number] [place] [address] Jul, [facility] [place] [facility] [address] [id number] [place] [address] Jul, [facility] [place] [facility] [address] [id number] [place] [address] Jul, [facility] [place] [facility] [address] [id number] [place] [address] Jul, [facility] [place] [facility] [address] [id number] [place] [address] Jul, [facility] [place] [facility] [address] [id number] [place] [address] Jul, [facility] [place] [facility] [address] [id number] [place] [address] Jul, [facility] [place] [facility] [address] [id number] [place] [address] 05 Jul, 2011 [facility] [place] [facility] [address] [id number] [place] [address] Jul, [facility] [place] [facility] [address] [id number] [place] [address] Jul, [facility] [place] [facility] [address] [id number] [place] [address] Jul, [facility] [place] [facility] [address] [id number] [place] [address] Jun, [facility] [place] [facility] [address] [id number] [place] [address] 27 Jun, 2011 [facility] [address] [id number] [place] [address] 20 Jun, 2011 [facility] [place] [facility] [address] [id number] [place] [address] 16 Jun, 2011 [facility] [address] [id number] [place] [address] 27 May, 2011 [facility] [place] [facility] [address] [id number] [place] [address] 16 May, 2011 [facility] [address] [id number] [place] [address] 09 May, 2011 [facility] [address] [id number] [place] [address] Apr, [facility] [address] [id number] [place] [address] 18 Apr, 2011 [facility] [address] [id number] [place] [address] 13 Apr, 2011 [facility] [address] [id number] [place] [address] Apr, [facility] [address] [id number] [place] [address] Apr, [facility] [address] [id number] [place] [address] Mar, [facility] [address] [id number] [place] [address] Mar, [facility] [place] [facility] [address] [id number] [place] [address] Mar, [facility] [place] [facility] [address] [id number] [place] [address] Mar, [facility] [place] [facility] [address] [id number] [place] [address] 16 Mar, 2011 [facility] [place] [facility] [address] [id number] [place] [address] Mar, [facility] [place] [facility] [address] [id number] [place] [address] 05 Mar, 2011 [facility] [place] [facility] [address] [id number] [place] [address] 29 Feb, 2011 [facility] [place] [facility] [address] [id number] [place] [address] Feb, [facility] [place] [facility] [address] [id number] [place] [address] Feb, [facility] [place] [facility] [address] [id number] [place] [address] Feb, [facility] [place] [facility] [address] [id number] [place] [address] Feb, [facility] [place] [facility] [address] [id number] [place] [address] 14 Feb, 2011 [facility] [place] [facility] [address] [id number] [place] [address] Feb, [facility] [place] [facility] [address] [id number], [place] [address] 31 Jan, 2011 [facility] [place] [facility] [address] [id number], [place] [address] 31 Jan, 2011 [facility] [place] [facility] [address] [id number], [place] [address] 31 Jan, 2011 [facility] [place] [facility] [address] [id number] [place] [address] 18 Jan, 2011 [facility] [place] [facility] [address] [id number], [place] [address] 17 Jan, 2011 [facility] [place] [facility] [address] [id number], [place] [address] 17 Jan, 2011 [facility] [place] [facility] [address] [id number] [place] [address] 17 Jun, 2010 [facility] [address] [id number] [place] [address] 30 Mar, 2010 [facility] [place] [facility] [address] [id number] [place] [address] 20 Mar, 2010 [facility] [address] [id number] [place] [address] 14 Mar, 2010 [facility] [place] [facility] [address] [id number] [place] [address] 14 Mar, 2010 [facility] [address] [id number] [place] [address] 13 Mar, 2010 [facility] [address] [id number] [place] [address] 07 Mar, 2010 [facility] [address] [id number] [place] [address] 02 Mar, 2010 [facility] [place] [facility] [address] [id number] [place] [address] Mar, [facility] [address] [id number] [place] [address] 30 Feb, 2010 [facility] [address] [id number] [place] [address] 29 Feb, 2010 [facility] [place] [facility] [address] [id number] [place] [address] 17 Feb, 2010 [facility] [place] [facility] [address] [id number] [place] [address] 17 Feb, 2010 [facility] [place] [facility] [address] [id number] [place] [address] 16 Feb, 2010 [facility] [place] [facility] [address] [id number] [place] [address] 08 Feb, 2010 [facility] [place] [facility] [address] [id number], [place] [address] 04 Feb, 2010 [facility] [place] [facility] [address] [id number] [place] [address] Feb, [facility] [place] [facility] [address] [id number] [place] [address] 28 Jan, 2010 [facility] [place] [facility] [address] [id number] [place] [address] Jan, [facility] [place] [facility] [address] [id number] [place] [address] 25 Jan, 2010 [facility] [place] [facility] [address] [id number] [place] [address] 18 Jan, 2010 [facility] [place] [facility] [address] [id number] [place] [address] 29 Mar, 2009 [facility] [place] [facility] [address] [id number] [place] [address] 22 Mar, 2009 [facility] [place] [facility] [address] [id number] [place] [address] 19 Mar, 2009 [facility] [place] [facility] [address] [id number] [place] [address] 19 Mar, 2009 [facility] [place] [facility] [address] [id number] [place] [address] 14 Mar, 2009 [facility] [place] [facility] [address] [id number] [place] [address] 10 Mar, 2009 [facility] [place] [facility] [address] [id number], [place] [address] 18 Feb, 2009 [facility] [place] [facility] [address] [id number] [place] [address] 18 Feb, 2009 [facility] [place] [facility] [address] [id number] [place] [address] 13 Jan, 2009 [facility] [place] [facility] [address] [id number] [place] [address] 10 Sep, 2008 [facility] [place] [facility] [address] [id number], [place] [address] May, IMMUNIZATIONS No Known Immunizations SOCIAL HISTORY Never Assessed REASON FOR VISIT refill PLAN OF CARE VITAL SIGNS MEDICATIONS Medication Instructions Dosage Frequency Start Date End Date Duration Status Tizanidine HCl 4 mg Orally Three times a day 1 tablet as needed 8h 90 days Active RESULTS No Results PROCEDURES No [...] History Left ear surgery Hospitalization History [facility]- Spontaneous Pneumothorax Hospitalization History [facility] [place]- Colon resection Hospitalization [facility] - diarrhea/ couldnt urinate nov 2017
--- OUTSIDE RECORDS SUMMARY | 2018-10-15 01:17 | XMS REPORT ---
Author Author AGUSTÍN PRATER [facility] Address [address] [place] [address] Care Team Providers Care Shoe Turner Name Role Phone AGUSTÍN PRATER Unavailable PROBLEMS Type Condition ICD9-CM Code [id number] Code Onset Dates Condition Status SNOMED Code Problem Anxiety F41.9 Active 09647188 Problem Chronic pain G89.29 Active 43936158 Problem Constipation K59.00 Active 89794033 Problem Insomnia G47.00 Active 277578515 Problem HTN (hypertension) I10 Active 04591940 Problem Chronic kidney disease, stage III (moderate) N18.3 Active 921540359 Problem Primary insomnia F51.01 Active 0950596 Problem Thoracic back pain, unspecified back pain laterality, unspecified chronicity M54.6 Active 918435939 Problem Hyperlipidemia E78.5 Active 94437949 Problem Environmental allergies Z91.09 Active 412766588 Problem Vitamin D deficiency E55.9 Active 16649451 ALLERGIES No Information ENCOUNTERS Encounter Location Date Diagnosis [facility] [id number] [place] [address] 10 Mar, 2018 Anxiety F41.9 and Thoracic back pain, unspecified back pain laterality, unspecified chronicity M54.6 [facility] [id number] [place] [address] 14 Feb, 2018 Anxiety F41.9 and Thoracic back pain, unspecified back pain laterality, unspecified chronicity M54.6 [facility] [id number] [place] [address] 07 Feb, 2018 Thoracic back pain, unspecified back pain laterality, unspecified chronicity M54.6 [place] [id number] [place] [address] 29 Jan, 2018 [facility] [address] [place] [address] 16 Jan, 2018 Anxiety F41.9 and Thoracic back pain, unspecified back pain laterality, unspecified chronicity M54.6 [facility] [id number] [place] [address] 19 Dec, 2017 Diarrhea of presumed infectious origin R19.7 [facility] [id number] [place] [address] 19 Dec, 2017 Diarrhea of presumed infectious origin R19.7 [facility] [id number] [place] [address] 18 Dec, 2017 Thoracic back pain, unspecified back pain laterality, unspecified chronicity M54.6 [facility] [facility] [id number] [place] [address] 17 Dec, 2017 [facility] [id number] [place] [address] 17 Dec, 2017 Anxiety F41.9 and Thoracic back pain, unspecified back pain laterality, unspecified chronicity M54.6 [facility] [id number] [place] [address] 13 Dec, 2017 Diarrhea of presumed infectious origin R19.7 [facility] [id number] [place] [address] 13 Dec, 2017 [place] [id number] [place] [address] Dec, Anxiety F41.9 and Thoracic back pain, unspecified back pain laterality, unspecified chronicity M54.6 [facility] [id number] [place] [address] Dec, Anxiety F41.9 and Thoracic back pain, unspecified back pain laterality, unspecified chronicity M54.[address] [facility] [address] [place] [id number] Dec, Diarrhea of presumed infectious origin R19.7 ; Anxiety F41.9 ; Thoracic back pain, unspecified back pain laterality, unspecified chronicity M54.6 and HTN (hypertension) I10 [facility] [id number] [place] [address] Dec, Anxiety F41.9 [facility] [employer] [address] [place] [id number] Dec, Anxiety F41.9 ; Diarrhea of presumed infectious origin R19.7 ; Generalized abdominal pain R10.84 and Localized edema R60.0 [facility] [facility] [id number] [place] [address] Nov, [facility] [employer] [address] [place] [id number] Nov, Anxiety F41.9 ; Urinary retention R33.9 ; Diarrhea of presumed infectious origin R19.7 ; Weakness R53.1 ; Acute kidney failure, unspecified N17.9 ; Chronic kidney disease, stage III (moderate) N18.3 and Thoracic back pain, unspecified back pain laterality, unspecified chronicity M54.6 [facility] [id number] [place] [address] Oct, Thoracic back pain, unspecified back pain laterality, unspecified chronicity M54.6 and Anxiety F41.9 [facility] [id number] [place] [address] Sep, Thoracic back pain, unspecified back pain laterality, unspecified chronicity M54.6 and Anxiety F41.9 [facility] [id number] [place] [address] Sep, Thoracic back pain, unspecified back pain laterality, unspecified chronicity M54.6 ; Anxiety F41.9 and Encounter for medication monitoring Z51.81 [facility] [id number] [place] [address] August, [place] [address] [address] August, Thoracic back pain, unspecified back pain laterality, unspecified chronicity M54.6 and Anxiety F41.9 [facility] [id number] [place] [address] August, Hyperlipidemia E78.5 and HTN (hypertension) I10 [facility] [id number] [place] [address] August, [facility] [id number] [place] [address] August, Medicare welcome exam Z00.00 ; Chronic kidney failure N18.9 ; Anxiety F41.9 ; Chronic pain G89.29 ; Insomnia G47.00 ; Hyperlipidemia E78.5 ; HTN (hypertension) I10 and Thoracic back pain, unspecified back pain laterality, unspecified chronicity M54.6 [facility] [facility] [id number] [place] [address] Jul, [facility] [id number] [place] [address] Jul, [facility] [id number] [place] [address] Jul, [facility] [address] [address] Jul, Anxiety F41.9 [facility] [place] [id number] [place] [address] Jul, Thoracic back pain, unspecified back pain laterality, unspecified chronicity M54.6 and Anxiety F41.9 [facility] [id number] [place] [address] Jun, Thoracic back pain, unspecified back pain laterality, unspecified chronicity M54.6 and Anxiety F41.9 [facility] [facility] [id number] [place] [address] May, Thoracic back pain, unspecified back pain laterality, unspecified chronicity M54.6 and Anxiety F41.9 [facility] [id number] [place] [address] Apr, Thoracic back pain, unspecified back pain laterality, unspecified chronicity M54.6 and Anxiety F41.9 [place] [address] [address] Mar, [place] [address] [address] Mar, Thoracic back pain, unspecified back pain laterality, unspecified chronicity M54.6 and Anxiety F41.9 [facility] [facility] [address] [address] Mar, Thoracic back pain, unspecified back pain laterality, unspecified chronicity M54.6 ; HTN (hypertension) I10 ; Hyperlipidemia E78.5 and Anxiety F41.9 [facility] [address] [address] Feb, Thoracic back pain, unspecified back pain laterality, unspecified chronicity M54.6 and Anxiety F41.9 [facility] [facility] [address] [address] Nov, [facility] [address] [address] Oct, [facility] [facility] [address] [address] Oct, Thoracic back pain, unspecified back pain laterality, unspecified chronicity M54.6 [facility] [id number] [place] [address] Oct, HTN (hypertension) I10 ; Constipation K59.00 ; Hyperlipidemia E78.5 ; Thoracic back pain, unspecified back pain laterality, unspecified chronicity M54.6 ; Chronic pain G89.29 ; Anxiety F41.9 ; Chronic kidney failure N18.9 ; Environmental allergies Z91.09 ; Vitamin D deficiency E55.9 and Primary insomnia F51.01 [facility] [facility] [address] [address] Sep, Anxiety F41.9 [facility] [place] [facility] [address] [place] [address] Sep, [facility] [place] [facility] [id number] [place] [address] August, Anxiety F41.9 [facility] [place] [facility] [id number] [place] [address], [place] [address] August, [facility] [place] [facility] [id number] [place] [address] Jul, Anxiety F41.9 [facility] [id number] [place] [address], [place] [address] Jul, [facility] [place] [facility] [id number] [place] [address], [place] [address] Jun, Anxiety F41.9 [facility] [place] [facility] [id number] [place] [address], [place] [address] Jun, [facility] [place] [facility] [address] [place] [address] May, [facility] [place] [facility] [id number] [place] [address], [place] [address] May, [facility] [address], [place] [address] May, [facility] [place] [facility] [address], [place] [address] Apr, [facility] [place] [facility] [address], [place] [address] Apr, [facility] [place] [facility] [address] [place] [address] Apr, Anxiety F41.9 [facility] [place] [facility] [address], [place] [address] Apr, Anxiety F41.9 [facility] [place] [facility] [id number] [place] [address] Apr, [facility] [id number] [place] [address] Mar, HTN (hypertension) I10 ; Tremor R25.1 ; Hypercholesterolemia E78.0 ; Constipation K59.00 ; Chronic pain G89.29 ; Hyperlipidemia E78.5 ; Insomnia G47.00 ; Anxiety F41.9 and Thoracic back pain, unspecified back pain laterality, unspecified chronicity M54.6 [facility] [id number] [place] [address] Mar, Tremor R25.1 ; HTN (hypertension) I10 ; Hypercholesterolemia E78.0 ; Constipation K59.00 ; Chronic pain G89.29 ; Hyperlipidemia E78.5 ; Insomnia G47.00 ; Anxiety F41.9 and Thoracic back pain, unspecified back pain laterality, unspecified chronicity M54.6 [facility] [id number] [place] [address] Mar, [facility] [id number] [place] [address] Mar, [facility] [id number] [place] [address] Feb, [facility] [id number] [place] [address] Jan, [facility] [id number] [place] [address] Jan, [facility] [id number] [place] [address] Dec, [facility] [id number] [place] [address] Nov, [facility] [id number] [place] [address] Nov, [facility] [id number] [place] [address] Oct, Anxiety F41.9 [facility] [id number] [place] [address] Oct, Chronic pain G89.29 [facility] [id number] [place] [address] Sep, [facility] [id number] [place] [address] Sep, [facility] [id number] [place] [address] Sep, [facility] [id number] [place] [address] Sep, [facility] [id number] [place] [address] Sep, Chronic pain syndrome G89.4 [facility] [id number] [place] [address] Sep, HTN (hypertension) I10 ; Chronic pain G89.29 ; Hypercholesterolemia E78.0 ; Chronic kidney failure N18.9 ; Constipation, unspecified constipation type K59.00 ; Anxiety F41.9 and Thoracic back pain, unspecified back pain laterality, unspecified chronicity M54.6 [place] [id number] [place] [address] August, Chronic pain syndrome G89.4 [facility] [id number] [place] [address] August, Chronic pain syndrome G89.4 [facility] [id number] [place] [address] Jul, Anxiety disorder, unspecified F41.9 and Chronic pain syndrome G89.4 [facility] [id number] [place] [address] Jul, Insomnia, unspecified G47.00 and Chronic pain syndrome G89.4 [facility] [id number] [place] [address] Jul, Allergic rhinitis J30.9 [facility] [id number] [place] [address] Jul, Constipation, unspecified K59.00 [facility] [id number] [place] [address] Jul, [facility] [address] [address] Jun, [facility] [id number] [place] [address] Jun, [facility] [address] [address] Jun, [facility] [id number] [place] [address] Jun, [facility] [id number] [place] [address] Jun, [facility] [id number] [place] [address] Jun, [facility] [id number] [place] [address] May, [facility] [id number] [place] [address] May, [facility] [id number] [place] [address] May, Anxiety F41.9 ; Insomnia G47.00 ; Hyperlipidemia E78.5 ; Chronic pain G89.29 ; HTN (hypertension) I10 ; Environmental allergies V15.09 and Constipation 564.00 [facility] [id number] [place] [address] Apr, [facility] [id number] [place] [address] Apr, [facility] [address], [place] [address] Apr, [facility] [id number] [place] [address] Mar, [facility] [id number] [address] Mar, [facility] [id number] [place] [address] Mar, [facility] [id number] [place] [address] Feb, [facility] [id number] [place] [address] Feb, [facility] [id number] [place] [address] Feb, [facility] [id number] [place] [address] Jan, HTN (hypertension) I10 ; Constipation K59.00 ; Chronic pain G89.29 ; Hyperlipidemia E78.5 ; Hypercholesterolemia E78.0 ; Insomnia G47.00 and Anxiety F41.9 [facility] [address], [place] [address] Jan, [facility] [address], [place] [address] Dec, [facility] [address] [place] [address] Nov, [facility] [address] [place] [address] Oct, Chronic kidney disease, unspecified 585.9 ; Chronic pain syndrome 338.4 ; Hyperlipidemia 272.4 and Essential hypertension 401.9 [facility] [address], [place] [address] Oct, Chronic kidney disease 585.9 [facility] [address] [address] 15 Oct, 2014 [facility] [address], [place] [address] Oct, Chronic kidney disease, unspecified 585.9 ; Hypercalcemia 275.42 ; Hyperlipidemia 272.4 ; Essential hypertension 401.9 ; Chronic pain syndrome 338.4 ; Insomnia 780.52 ; Constipation 564.00 ; Environmental allergies V15.09 and Anxiety 300.00 [facility] [address], [place] [address] 15 Oct, 2014 Chronic kidney disease 585.9 [facility] [id number] [place] [address] Oct, [facility] [id number] [place] [address] Oct, Chronic kidney disease 585.9 and Hyperlipidemia 272.4 [facility] [id number] [address] Oct, [facility] [address], [place] [address] Oct, [facility] [address], [place] [address] Sep, [facility] [address], [place] [address] Sep, [facility] [address], [place] [address] Sep, Chronic kidney disease 585.9 and Hyperlipidemia 272.4 [facility] [address], [place] [address] Sep, [facility] [address], [place] [address] August, [facility] [address], [place] [address] August, [facility] [address] [place] [address] 14 Jul, 2014 [facility] [place] [facility] [address] [id number] [place] [address] 13 Jul, 2014 [facility] [place] [facility] [address] [id number] [place] [address] 20 Jun, 2014 [facility] [place] [facility] [address] [id number] [place] [address] Jun, [facility] [place] [facility] [address] [id number] [place] [address] 16 Jun, 2014 [facility] [place] [facility] [address] [id number] [place] [address] Jun, [facility] [place] [facility] [address] [id number] [place] [address] Jun, [facility] [place] [facility] [address] [id number] [place] [address] Jun, [facility] [place] [facility] [address] [id number] [place] [address] Jun, [facility] [place] [facility] [address] [id number] [place] [address] Jun, [facility] [place] [facility] [address] [id number] [place] [address] 16 May, 2014 [facility] [place] [facility] [address] [id number] [place] [address] May, [facility] [place] [facility] [address] [id number] [place] [address] May, [facility] [place] [facility] [address] [id number] [place] [address] May, [facility] [place] [facility] [address] [id number] [place] [address] Apr, [facility] [place] [facility] [address] [id number] [place] [address] Apr, [facility] [place] [facility] [address] [id number] [place] [address] Apr, [facility] [place] [facility] [address] [id number] [place] [address] Apr, [facility] [place] [facility] [address] [id number] [place] [address] Apr, [facility] [place] [facility] [address] [id number] [place] [address] Apr, [facility] [place] [facility] [address] [id number] [place] [address] Apr, [facility] [place] [facility] [address] [id number] [place] [address] Apr, [facility] [place] [facility] [address] [id number] [place] [address] Apr, [facility] [place] [facility] [address] [id number] [place] [address] Apr, [facility] [place] [facility] [address] [id number] [place] [address] Apr, [facility] [place] [facility] [address] [id number] [place] [address] Mar, [facility] [place] [facility] [address] [id number], [place] [address] Mar, [facility] [place] [facility] [address] [id number], [place] [address] Feb, [facility] [place] [facility] [address] [id number] [place] [address] Feb, [facility] [place] [facility] [address] [id number] [place] [address] Feb, [facility] [place] [facility] [address] [id number] [place] [address] Feb, [facility] [place] [facility] [address] [id number] [place] [address] Feb, 2013 [facility] [place] [facility] [address] [id number] [place] [address] Feb, [facility] [place] [facility] [address] [id number] [place] [address] Feb, [facility] [place] [facility] [address] [id number] [place] [address] Feb, [facility] [place] [facility] [address] [id number] [place] [address] Feb, [facility] [place] [facility] [address] [id number] [place] [address] Feb, [facility] [place] [facility] [address] [id number] [place] [address] Jan, [facility] [place] [facility] [address] [id number] [place] [address] Jan, [facility] [place] [facility] [address] [id number] [place] [address] Jan, [facility] [place] [facility] [address] [id number] [place] [address] Jan, [facility] [place] [facility] [address] [id number] [place] [address] Jan, [facility] [place] [facility] [address] [id number] [place] [address] 24 Jan, 2014 [facility] [place] [facility] [address] [id number] [place] [address] Jan, [facility] [place] [facility] [address] [id number] [place] [address] Jan, [facility] [place] [facility] [address] [id number] [place] [address] Jan, [facility] [place] [facility] [address] [id number] [place] [address] Jan, [facility] [place] [facility] [address] [id number] [place] [address] Jan, [facility] [place] [facility] [address] [id number] [place] [address] Dec, [facility] [place] [facility] [address] [id number] [place] [address] Dec, [facility] [place] [facility] [address] [id number] [place] [address] Dec, [facility] [place] [facility] [address] [id number] [place] [address] Dec, [facility] [place] [facility] [address] [id number] [place] [address] Dec, [facility] [place] [facility] [address] [id number] [place] [address] Dec, [facility] [place] [facility] [address] [id number] [place] [address] Dec, [facility] [place] [facility] [address] [id number] [place] [address] Dec, [facility] [place] [facility] [address] [id number] [place] [address] Nov, [facility] [place] [facility] [address] [id number] [place] [address] Nov, [facility] [place] [facility] [address] [id number] [place] [address] Nov, [facility] [place] [facility] [address] [id number] [place] [address] Nov, [facility] [place] [facility] [address] [id number] [place] [address] Nov, [facility] [place] [facility] [address] [id number] [place] [address] Nov, [facility] [place] [facility] [address] [id number] [place] [address] Nov, [facility] [place] [facility] [address] [id number] [place] [address] Nov, [facility] [place] [facility] [address] [id number] [place] [address] Oct, [facility] [place] [facility] [address] [id number] [place] [address] Oct, [facility] [place] [facility] [address] [id number] [place] [address] Oct, [facility] [place] [facility] [address] [id number] [place] [address] Oct, [facility] [place] [facility] [address] [id number] [place] [address] Sep, [facility] [place] [facility] [address] [id number] [place] [address] Sep, [facility] [place] [facility] [address] [id number] [place] [address] Sep, [facility] [place] [facility] [address] [id number] [place] [address] Sep, [facility] [place] [facility] [address] [id number] [place] [address] Sep, [facility] [place] [facility] [address] [id number] [place] [address] Sep, [facility] [place] [facility] [address] [id number] [place] [address] Sep, [facility] [place] [facility] [address] [id number] [place] [address] Sep, [facility] [place] [facility] [address] [id number] [place] [address] August, [facility] [place] [facility] [address] [id number] [place] [address] August, [facility] [place] [facility] [address] [id number] [place] [address] August, [facility] [address] [id number] [place] [address] August, [facility] [address] [id number] [place] [address] August, [facility] [address] [id number] [place] [address] August, [facility] [address] [id number] [place] [address] August, [facility] [address] [id number] [place] [address] August, [facility] [address] [id number] [place] [address] August, [facility] [address] [id number] [place] [address] August, [facility] [address] [id number] [place] [address] Jul, [facility] [address] [id number] [place] [address] Jul, [facility] [address] [id number] [place] [address] Jul, [facility] [address] [id number] [place] [address] Jul, [facility] [address] [id number] [place] [address] Jul, [facility] [place] [facility] [address] [id number] [place] [address] Jul, [facility] [place] [facility] [address] [id number] [place] [address] Jul, [facility] [place] [facility] [address] [id number] [place] [address] Jul, [facility] [place] [facility] [address] [id number] [place] [address] Jun, [facility] [place] [facility] [address] [id number] [place] [address] Jun, [facility] [place] [facility] [address] [id number] [place] [address] Jun, [facility] [place] [facility] [address] [id number] [place] [address] Jun, [facility] [place] [facility] [address] [id number] [place] [address] Jun, [facility] [place] [facility] [address] [id number] [place] [address] Jun, [facility] [place] [facility] [address] [id number] [place] [address] May, [facility] [place] [facility] [address] [id number] [place] [address] May, [facility] [place] [facility] [address] [id number] [place] [address] May, [facility] [place] [facility] [address] [id number] [place] [address] May, [facility] [place] [facility] [address] [id number] [place] [address] May, [facility] [place] [facility] [address] [id number] [place] [address] May, [facility] [place] [facility] [address] [id number] [place] [address] May, [facility] [place] [facility] [address] [id number] [place] [address] Apr, [facility] [place] [facility] [address] [id number] [place] [address] Apr, [facility] [place] [facility] [address] [id number] [place] [address] 14 Apr, 2013 [facility] [address] [id number] [place] [address] 14 Apr, 2013 [facility] [address] [id number] [place] [address] 10 Apr, 2013 [facility] [address] [id number] [place] [address] 10 Apr, 2013 [facility] [address] [id number] [place] [address] 31 Mar, 2013 [facility] [address] [id number] [place] [address] 31 Mar, 2013 [facility] [address] [id number] [place] [address] Mar, [facility] [address] [id number] [place] [address] 23 Mar, 2013 [facility] [address] [id number] [place] [address] Mar, [facility] [address] [id number] [place] [address] 19 Mar, 2013 [facility] [address] [id number] [place] [address] 16 Mar, 2013 [facility] [address] [id number] [place] [address] 16 Mar, 2013 [facility] [address] [id number] [place] [address] 12 Mar, 2013 [facility] [address] [id number] [place] [address] Mar, [facility] [address] [id number] [place] [address] Feb, [facility] [address] [id number] [place] [address] Feb, [facility] [place] [facility] [address] [id number] [place] [address] Feb, [facility] [place] [facility] [address] [id number] [place] [address] Feb, [facility] [place] [facility] [address] [id number] [place] [address] Feb, [facility] [place] [facility] [address] [id number] [place] [address] Feb, [facility] [place] [facility] [address] [id number] [place] [address] Feb, [facility] [place] [facility] [address] [id number] [place] [address] Feb, [facility] [place] [facility] [address] [id number] [place] [address] Feb, [facility] [place] [facility] [address] [id number], [place] [address] Feb, [facility] [place] [facility] [address] [id number] [place] [address] Jan, [facility] [place] [facility] [address] [id number], [place] [address] Jan, [facility] [place] [facility] [address] [id number], [place] [address] Jan, [facility] [place] [facility] [address] [id number], [place] [address] Jan, [facility] [place] [facility] [address] [id number], [place] [address] Jan, [facility] [place] [facility] [address] [id number], [place] [address] Jan, [facility] [place] [facility] [address] [id number], [place] [address] Jan, [facility] [place] [facility] [address] [id number], [place] [address] Jan, [facility] [address] [id number] [place] [address] Jan, [facility] [place] [facility] [address] [id number] [place] [address] Dec, [facility] [place] [facility] [address] [id number] [place] [address] Dec, [facility] [place] [facility] [address] [id number] [place] [address] Dec, [facility] [place] [facility] [address] [id number] [place] [address] Dec, [facility] [place] [facility] [address] [id number] [place] [address] Nov, [facility] [place] [facility] [address] [id number] [place] [address] Nov, [facility] [place] [facility] [address] [id number] [place] [address] Nov, [facility] [place] [facility] [address] [id number] [place] [address] Nov, [facility] [place] [facility] [address] [id number] [place] [address] Nov, [facility] [place] [facility] [address] [id number] [place] [address] Nov, [facility] [place] [facility] [address] [id number] [place] [address] Oct, [facility] [place] [facility] [address] [id number] [place] [address] Oct, [facility] [place] [facility] [address] [id number] [place] [address] Oct, [facility] [place] [facility] [address] [id number] [place] [address] Oct, [facility] [place] [facility] [address] [id number] [place] [address] 27 Sep, 2012 [facility] [address] [id number] [place] [address] 19 Sep, 2012 [facility] [place] [facility] [address] [id number] [place] [address] 17 Sep, 2012 [facility] [address] [id number] [place] [address] 14 Sep, 2012 [facility] [place] [facility] [address] [id number] [place] [address] 10 Sep, 2012 [facility] [address] [id number] [place] [address] August, [facility] [place] [facility] [address] [id number] [place] [address] 2012 [facility] [address] [id number] [place] [address] Jul, [facility] [address] [id number] [place] [address] 19 Jul, 2012 [facility] [address] [id number] [place] [address] 15 Jul, 2012 [facility] [address] [id number] [place] [address] 09 Jul, 2012 [facility] [place] [facility] [address] [id number] [place] [address] 08 Jul, 2012 [facility] [place] [facility] [address] [id number] [place] [address] 26 Jun, 2012 [facility] [place] [facility] [address] [id number] [place] [address] 20 Jun, 2012 [facility] [place] [facility] [address] [id number] [place] [address] 15 Jun, 2012 [facility] [place] [facility] [address] [id number] [place] [address] Jun, [facility] [address] [id number] [place] [address] Jun, [facility] [address] [id number] [place] [address] May, [facility] [address] [facility] [id number] [place] [address] May, [facility] [place] [facility] [address] [id number] [place] [address] May, [facility] [place] [facility] [address] [id number] [place] [address] May, [facility] [address] [facility] [id number] [place] [address] May, [facility] [address] [facility] [id number] [place] [address] May, [facility] [place] [facility] [address] [id number] [place] [address] May, [facility] [address] [id number] [place] [address] May, [facility] [address] [facility] [id number] [place] [address] May, [facility] [address] [id number] [place] [address] Apr, [facility] [place] [facility] [address] [id number] [place] [address] Apr, [facility] [place] [facility] [address] [id number] [place] [address] Apr, [facility] [place] [facility] [address] [facility] [id number] [place] [address] Apr, [facility] [place] [facility] [address] [facility] [id number] [place] [address] Apr, [facility] [place] [facility] [address] [id number] [place] [address] Mar, [facility] [place] [facility] [address] [id number] [place] [address] Mar, [facility] [place] [facility] [address] [id number] [place] [address] Mar, [facility] [place] [facility] [address] [id number] [place] [address] Mar, [facility] [place] [facility] [address] [id number] [place] [address] Mar, [facility] [place] [facility] [address] [id number] [place] [address] Mar, [facility] [place] [facility] [address] [id number] [place] [address] Mar, [facility] [place] [facility] [address] [id number] [place] [address] Mar, [facility] [place] [facility] [address] [id number] [place] [address] Mar, [facility] [place] [facility] [address] [id number] [place] [address] Mar, [facility] [place] [facility] [address] [id number] [place] [address] 30 Feb, 2012 [facility] [place] [facility] [address] [id number] [place] [address] 30 Feb, 2012 [facility] [place] [facility] [address] [id number] [place] [address] Feb, [facility] [place] [facility] [address] [id number] [place] [address] Feb, [facility] [place] [facility] [address] [id number] [place] [address] Feb, [facility] [place] [facility] [address] [id number] [place] [address] Feb, [facility] [place] [facility] [address] [id number] [place] [address] Feb, [facility] [place] [facility] [address] [id number] [place] [address] Feb, [facility] [place] [facility] [address] [facility] [id number] [place] [address] 16 Feb, 2012 [facility] [place] [facility] [address] [id number] [place] [address] 16 Feb, 2012 [facility] [place] [facility] [address] [id number] [place] [address] Feb, [facility] [place] [facility] [address] [id number] [place] [address] Feb, [facility] [place] [facility] [address] [id number] [place] [address] Feb, [facility] [place] [facility] [address] [id number], [place] [address] Feb, [facility] [place] [facility] [address] [id number], [place] [address] Feb, [facility] [place] [facility] [address] [facility] [id number], [place] [address] Feb, [facility] [place] [facility] [address] [id number], [place] [address] Feb, [facility] [place] [facility] [address] [id number], [place] [address] Feb, [facility] [place] [facility] [address] [id number], [place] [address] Jan, [facility] [place] [facility] [address] [id number], [place] [address] Jan, [facility] [place] [facility] [address] [facility] [id number], [place] [address] Jan, [facility] [place] [facility] [address] [id number] [place] [address] Jan, [facility] [place] [facility] [address] [id number] [place] [address] Jan, [facility] [place] [facility] [address] [id number] [place] [address] 24 Jan, 2012 [facility] [place] [facility] [address] [id number] [place] [address] Jan, [facility] [place] [facility] [address] [id number] [place] [address] Jan, [facility] [place] [facility] [address] [id number] [place] [address] Jan, [facility] [place] [facility] [address] [id number] [place] [address] Jan, [facility] [place] [facility] [address] [id number] [place] [address] 24 Dec, 2011 [facility] [place] [facility] [address] [id number] [place] [address] 18 Dec, 2011 [facility] [place] [facility] [address] [id number] [place] [address] 04 Dec, 2011 [facility] [place] [facility] [address] [id number] [place] [address] 04 Dec, 2011 [facility] [place] [facility] [address] [id number] [place] [address] 29 Nov, 2011 [facility] [place] [facility] [address] [id number] [place] [address] Nov, [facility] [place] [facility] [address] [id number] [place] [address] Nov, [facility] [place] [facility] [address] [id number] [place] [address] Nov, [facility] [place] [facility] [address] [id number] [place] [address] Nov, [facility] [place] [facility] [address] [id number] [place] [address] Nov, [facility] [place] [facility] [address] [id number] [place] [address] Oct, [facility] [place] [facility] [address] [id number] [place] [address] Oct, [facility] [place] [facility] [address] [id number] [place] [address] Oct, [facility] [address] [id number] [place] [address] Oct, [facility] [place] [facility] [address] [id number] [place] [address] Oct, [facility] [address] [id number] [place] [address] Sep, [facility] [place] [facility] [address] [id number] [place] [address] Sep, [facility] [place] [facility] [address] [id number] [place] [address] Sep, [facility] [place] [facility] [address] [id number] [place] [address] Sep, [facility] [place] [facility] [address] [id number] [place] [address] Sep, [facility] [place] [facility] [address] [id number] [place] [address] August, [facility] [place] [facility] [address] [id number] [place] [address] August, [facility] [place] [facility] [address] [id number] [place] [address] August, [facility] [place] [facility] [address] [id number] [place] [address] August, [facility] [place] [facility] [address] [id number] [place] [address] Jul, [facility] [place] [facility] [address] [id number] [place] [address] 24 Jul, 2011 [facility] [place] [facility] [address] [id number] [place] [address] Jul, [facility] [place] [facility] [address] [id number] [place] [address] Jul, [facility] [place] [facility] [address] [id number] [place] [address] Jul, [facility] [place] [facility] [address] [id number] [place] [address] Jul, [facility] [place] [facility] [address] [id number] [place] [address] Jul, [facility] [place] [facility] [address] [id number] [place] [address] Jul, [facility] [place] [facility] [address] [id number] [place] [address] Jul, [facility] [place] [facility] [address] [id number] [place] [address] Jul, [facility] [place] [facility] [address] [id number] [place] [address] Jul, [facility] [place] [facility] [address] [id number] [place] [address] Jul, [facility] [place] [facility] [address] [id number] [place] [address] Jul, [facility] [place] [facility] [address] [id number] [place] [address] Jul, [facility] [place] [facility] [address] [id number] [place] [address] Jun, [facility] [place] [facility] [address] [id number] [place] [address] Jun, [facility] [place] [facility] [address] [id number] [place] [address] 20 Jun, 2011 [facility] [address] [id number] [place] [address] 16 Jun, 2011 [facility] [place] [facility] [address] [id number] [place] [address] 27 May, 2011 [facility] [address] [id number] [place] [address] 16 May, 2011 [facility] [place] [facility] [address] [id number] [place] [address] May, [facility] [address] [id number] [place] [address] Apr, [facility] [address] [id number] [place] [address] 18 Apr, 2011 [facility] [address] [id number] [place] [address] Apr, [facility] [address] [id number] [place] [address] Apr, [facility] [address] [id number] [place] [address] Apr, [facility] [address] [id number] [place] [address] Mar, [facility] [address] [id number] [place] [address] Mar, [facility] [address] [id number] [place] [address] Mar, [facility] [place] [facility] [address] [id number] [place] [address] Mar, [facility] [place] [facility] [address] [id number] [place] [address] Mar, [facility] [place] [facility] [address] [id number] [place] [address] Mar, [facility] [place] [facility] [address] [id number] [place] [address] 05 Mar, 2011 [facility] [place] [facility] [address] [id number] [place] [address] 29 Feb, 2011 [facility] [place] [facility] [address] [id number] [place] [address] Feb, [facility] [place] [facility] [address] [id number] [place] [address] Feb, [facility] [place] [facility] [address] [id number] [place] [address] Feb, [facility] [place] [facility] [address] [id number] [place] [address] 16 Feb, 2011 [facility] [place] [facility] [address] [id number] [place] [address] 14 Feb, 2011 [facility] [place] [facility] [address] [id number] [place] [address] Feb, [facility] [place] [facility] [address] [id number] [place] [address] 31 Jan, 2011 [facility] [place] [facility] [address] [id number] [place] [address] 31 Jan, 2011 [facility] [place] [facility] [address] [id number], [place] [address] 31 Jan, 2011 [facility] [place] [facility] [address] [id number], [place] [address] 18 Jan, 2011 [facility] [place] [facility] [address] [id number] [place] [address] 17 Jan, 2011 [facility] [place] [facility] [address] [id number], [place] [address] 17 Jan, 2011 [facility] [place] [facility] [address] [id number], [place] [address] Jun, [facility] [place] [facility] [address] [id number] [place] [address] 30 Mar, 2010 [facility] [address] [id number] [place] [address] 20 Mar, 2010 [facility] [place] [facility] [address] [id number] [place] [address] 14 Mar, 2010 [facility] [address] [id number] [place] [address] 14 Mar, 2010 [facility] [place] [facility] [address] [id number] [place] [address] 13 Mar, 2010 [facility] [address] [id number] [place] [address] 07 Mar, 2010 [facility] [place] [facility] [address] [id number] [place] [address] 02 Mar, 2010 [facility] [address] [id number] [place] [address] 01 Mar, 2010 [facility] [place] [facility] [address] [id number] [place] [address] 30 Feb, 2010 [facility] [place] [facility] [address] [id number] [place] [address] 29 Feb, 2010 [facility] [address] [facility] [id number] [place] [address] 17 Feb, 2010 [facility] [place] [facility] [address] [id number] [place] [address] 17 Feb, 2010 [facility] [place] [facility] [address] [id number] [place] [address] 16 Feb, 2010 [facility] [place] [facility] [address] [id number] [place] [address] 08 Feb, 2010 [facility] [place] [facility] [address] [id number] [place] [address] 04 Feb, 2010 [facility] [place] [facility] [address] [id number], [place] [address] Feb, [facility] [address] [id number], [place] [address] 28 Jan, 2010 [facility] [address] [facility] [id number], [place] [address] Jan, [facility] [address] [facility] [id number], [place] [address] Jan, [facility] [address] [facility] [id number], [place] [address] Jan, [facility] [address] [address] [id number], [place] [address] 29 Mar, 2009 [facility] [address] [facility] [id number] [place] [address] Mar, [facility] [address] [facility] [id number], [place] [address] Mar, [facility] [address] [facility] [id number], [place] [address] Mar, [facility] [address] [id number], [place] [address] 14 Mar, 2009 [facility] [address] [facility] [id number], [place] [address] Mar, [facility] [address] [facility] [id number], [place] [address] Feb, [facility] [address] [facility] [id number], [place] [address] Feb, [facility] [address] [facility] [id number], [place] [address] Jan, [facility] [address] [facility] [id number], [place] [address] Sep, [facility] [address] [facility] [id number], [place] [address] May, IMMUNIZATIONS No Known Immunizations SOCIAL HISTORY Never Assessed REASON FOR VISIT Controlled Med Refill 04/02 PLAN OF CARE VITAL SIGNS MEDICATIONS Medication Instructions Dosage Frequency Start Date End Date Duration Status Xanax 2 MG Orally 4 times a day 1/2 tablet 6h Dec, 28 days Active Elsah 10-325 MG Orally every 6 hrs 1 tablet as needed 6h Mar, 28 days Active Soma 350 MG Orally Four times a [...] Surgical History Left ear surgery Hospitalization History [facility]- Spontaneous Pneumothorax Hospitalization History [facility]- Colon resection Hospital[facility] - diarrhea/ couldnt urinate nov 2017
--- OUTSIDE RECORDS SUMMARY | 2018-10-15 01:18 | XMS REPORT ---
Author Author AGUSTÍN PRATER Organization 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 Name Role Phone AGUSTÍN PRATER Unavailable PROBLEMS Type Condition ICD9-CM Code [id number] Code Onset Dates Condition Status SNOMED Code Problem Anxiety F41.9 Active 45928838 Problem Chronic pain G89.29 Active 41497662 Problem Constipation K59.00 Active 38920390 Problem Insomnia G47.00 Active 304029660 Problem HTN (hypertension) I10 Active 99138614 Problem Chronic kidney disease, stage III (moderate) N18.3 Active 469368871 Problem Primary insomnia F51.01 Active 6933020 Problem Thoracic back pain, unspecified back pain laterality, unspecified chronicity M54.6 Active 459993077 Problem Hyperlipidemia E78.5 Active 61700758 Problem Environmental allergies Z91.09 Active 293516348 Problem Vitamin D deficiency E55.9 Active 20495043 ALLERGIES No Information ENCOUNTERS Encounter Location Date Diagnosis [facility] [id number] [place] [address] 14 Feb, 2018 Anxiety F41.9 and Thoracic back pain, unspecified back pain laterality, unspecified chronicity M54.6 [facility] [id number] [place] [address] Feb, Thoracic back pain, unspecified back pain laterality, unspecified chronicity M54.6 [facility] [id number] [place] [address] Jan, [facility] [facility] [address] [address] 16 Jan, 2018 Anxiety F41.9 and Thoracic back pain, unspecified back pain laterality, unspecified chronicity M54.6 [facility] [facility] [address] [place] [address] 19 Dec, 2017 Diarrhea of presumed infectious origin R19.7 [facility] [id number] [place] [address] 19 Dec, 2017 Diarrhea of presumed infectious origin R19.7 [facility] [id number] [place] [address] 18 Dec, 2017 Thoracic back pain, unspecified back pain laterality, unspecified chronicity M54.6 [facility] [id number] [place] [address] 17 Dec, 2017 [facility] [address] [address] 17 Dec, 2017 Anxiety F41.9 and Thoracic back pain, unspecified back pain laterality, unspecified chronicity M54.6 [facility] [id number] [place] [address] Dec, Diarrhea of presumed infectious origin R19.7 [facility] [id number] [place] [address] Dec, [facility] [id number] [place] [address] Dec, Anxiety F41.9 and Thoracic back pain, unspecified back pain laterality, unspecified chronicity M54.6 [facility] [id number] [place] [address] Dec, Anxiety F41.9 and Thoracic back pain, unspecified back pain laterality, unspecified chronicity M54.6 [facility] [address] [place] [id number] Dec, Diarrhea of presumed infectious origin R19.7 ; Anxiety F41.9 ; Thoracic back pain, unspecified back pain laterality, unspecified chronicity M54.6 and HTN (hypertension) I10 [facility] [id number] [place] [address] Dec, Anxiety F41.9 [facility] [address] [place] [id number] Dec, Anxiety F41.9 ; Diarrhea of presumed infectious origin R19.7 ; Generalized abdominal pain R10.84 and Localized edema R60.0 [facility] [id number] [place] [address] Nov, [facility] [address] [place] [id number] Nov, Anxiety F41.9 ; Urinary retention R33.9 ; Diarrhea of presumed infectious origin R19.7 ; Weakness R53.1 ; Acute kidney failure, unspecified N17.9 ; Chronic kidney disease, stage III (moderate) N18.3 and Thoracic back pain, unspecified back pain laterality, unspecified chronicity M54.6 [facility] [id number] [place] [address] Oct, Thoracic back pain, unspecified back pain laterality, unspecified chronicity M54.6 and Anxiety F41.9 [facility] [facility] [id number] [place] [address] Sep, Thoracic back pain, unspecified back pain laterality, unspecified chronicity M54.6 and Anxiety F41.9 [facility] [id number] [place] [address] Sep, Thoracic back pain, unspecified back pain laterality, unspecified chronicity M54.6 ; Anxiety F41.9 and Encounter for medication monitoring Z51.81 [facility] [id number] [place] [address] August, [facility] [id number] [place] [address] August, Thoracic back pain, unspecified back pain laterality, unspecified chronicity M54.6 and Anxiety F41.9 [facility] [id number] [place] [address] August, Hyperlipidemia E78.5 and HTN (hypertension) I10 [facility] [address] [place] [address] August, [facility] [id number] [place] [address] August, Medicare welcome exam Z00.00 ; Chronic kidney failure N18.9 ; Anxiety F41.9 ; Chronic pain G89.29 ; Insomnia G47.00 ; Hyperlipidemia E78.5 ; HTN (hypertension) I10 and Thoracic back pain, unspecified back pain laterality, unspecified chronicity M54.6 [facility] [id number] [place] [address] Jul, [facility] [address] [address] Jul, [facility] [id number] [place] [address] Jul, [facility] [address] [address] Jul, Anxiety F41.9 [facility] [id number] [place] [address] Jul, Thoracic back pain, unspecified back pain laterality, unspecified chronicity M54.6 and Anxiety F41.9 [facility] [id number] [place] [address] Jun, Thoracic back pain, unspecified back pain laterality, unspecified chronicity M54.6 and Anxiety F41.9 [facility] [id number] [place] [address] May, Thoracic back pain, unspecified back pain laterality, unspecified chronicity M54.6 and Anxiety F41.9 [facility] [id number] [place] [address] Apr, Thoracic back pain, unspecified back pain laterality, unspecified chronicity M54.6 and Anxiety F41.9 [facility] [id number] [place] [address] Mar, [place] [facility] [id number] [place] [address] Mar, Thoracic back pain, unspecified back pain laterality, unspecified chronicity M54.6 and Anxiety F41.9 [facility] [id number] [place] [address] Mar, Thoracic back pain, unspecified back pain laterality, unspecified chronicity M54.6 ; HTN (hypertension) I10 ; Hyperlipidemia E78.5 and Anxiety F41.9 [facility] [id number] [place] [address] Feb, Thoracic back pain, unspecified back pain laterality, unspecified chronicity M54.6 and Anxiety F41.9 [facility] [id number] [place] [address] Nov, [facility] [facility] [address] [address] Oct, [facility] [facility] [address] [address] Oct, Thoracic back pain, unspecified back pain laterality, unspecified chronicity M54.6 [facility] [id number] [place] [address] Oct, HTN (hypertension) I10 ; Constipation K59.00 ; Hyperlipidemia E78.5 ; Thoracic back pain, unspecified back pain laterality, unspecified chronicity M54.6 ; Chronic pain G89.29 ; Anxiety F41.9 ; Chronic kidney failure N18.9 ; Environmental allergies Z91.09 ; Vitamin D deficiency E55.9 and Primary insomnia F51.01 [facility] [id number] [place] [address] Sep, Anxiety F41.9 [facility] [id number] [place] [address] Sep, [facility] [address] [place] [address] August, Anxiety F41.9 [facility] [id number] [place] [address] August, [facility] [id number] [place] [address] Jul, Anxiety F41.9 [facility] [id number] [place] [address] Jul, [facility] [id number] [place] [address] Jun, Anxiety F41.9 [facility] [id number] [place] [address] Jun, [facility] [id number] [place] [address] May, [facility] [id number] [place] [address] May, [facility] [id number] [place] [address] May, [facility] [id number] [place] [address] Apr, [facility] [address] [address] Apr, [facility] [id number] [place] [address] Apr, Anxiety F41.9 [facility] [address] [address] Apr, Anxiety F41.9 [facility] [id number] [place] [address] Apr, [facility] [address] [address] Mar, HTN (hypertension) I10 ; Tremor R25.1 ; Hypercholesterolemia E78.0 ; Constipation K59.00 ; Chronic pain G89.29 ; Hyperlipidemia E78.5 ; Insomnia G47.00 ; Anxiety F41.9 and Thoracic back pain, unspecified back pain laterality, unspecified chronicity M54.6 [facility] [id number] [place] [address] Mar, Tremor R25.1 ; HTN (hypertension) I10 ; Hypercholesterolemia E78.0 ; Constipation K59.00 ; Chronic pain G89.29 ; Hyperlipidemia E78.5 ; Insomnia G47.00 ; Anxiety F41.9 and Thoracic back pain, unspecified back pain laterality, unspecified chronicity M54.6 [facility] [id number] [place] [address] Mar, [facility] [id number] [place] [address] Mar, [facility] [id number] [place] [address] Feb, [facility] [id number] [place] [address] Jan, [facility] [id number] [place] [address] Jan, [facility] [id number] [place] [address] Dec, [facility] [id number] [place] [address] Nov, [facility] [id number] [place] [address] Nov, [facility] [id number] [place] [address] Oct, Anxiety F41.9 [facility] [id number] [place] [address] Oct, Chronic pain G89.29 [facility] [id number] [place] [address] Sep, [facility] [id number] [place] [address] Sep, [facility] [id number] [place] [address] Sep, [place] [id number] [place] [address] Sep, [place] [id number] [place] [address] Sep, Chronic pain syndrome G89.4 [place] [id number] [place] [address] Sep, HTN (hypertension) I10 ; Chronic pain G89.29 ; Hypercholesterolemia E78.0 ; Chronic kidney failure N18.9 ; Constipation, unspecified constipation type K59.00 ; Anxiety F41.9 and Thoracic back pain, unspecified back pain laterality, unspecified chronicity M54.6 [place] [id number] [place] [address] August, Chronic pain syndrome G89.4 [place] [id number] [place] [address] August, Chronic pain syndrome G89.4 [place] [id number] [place] [address] Jul, Anxiety disorder, unspecified F41.9 and Chronic pain syndrome G89.4 [place] [id number] [place] [address] Jul, Insomnia, unspecified G47.00 and Chronic pain syndrome G89.4 [place] [id number] [place] [address] Jul, Allergic rhinitis J30.9 [place] [id number] [place] [address] Jul, Constipation, unspecified K59.00 [facility] [address], [place] [address] Jul, [facility] [id number] [place] [address] Jun, [facility] [id number] [place] [address] Jun, [facility] [id number] [place] [address] Jun, [facility] [id number] [place] [address] Jun, [facility] [id number] [place] [address] Jun, [facility] [id number] [place] [address] Jun, [facility] [id number] [place] [address] May, [facility] [id number] [place] [address] May, [facility] [id number] [address] May, Anxiety F41.9 ; Insomnia G47.00 ; Hyperlipidemia E78.5 ; Chronic pain G89.29 ; HTN (hypertension) I10 ; Environmental allergies V15.09 and Constipation 564.00 [facility] [address], [place] [address] Apr, [facility] [id number] [place] [address] Apr, [facility] [id number] [address] Apr, [facility] [id number] [place] [address] Mar, [facility] [address], [place] [address] Mar, [facility] [id number] [place] [address] Mar, [facility] [id number] [place] [address] Feb, [facility] [id number] [place] [address] Feb, [facility] [id number] [place] [address] Feb, [facility] [id number] [place] [address] Jan, HTN (hypertension) I10 ; Constipation K59.00 ; Chronic pain G89.29 ; Hyperlipidemia E78.5 ; Hypercholesterolemia E78.0 ; Insomnia G47.00 and Anxiety F41.9 [facility] [id number] [place] [address] Jan, [facility] [id number] [place] [address] Dec, [facility] [id number] [place] [address] Nov, [facility] [id number] [place] [address] Oct, Chronic kidney disease, unspecified 585.9 ; Chronic pain syndrome 338.4 ; Hyperlipidemia 272.4 and Essential hypertension 401.9 [facility] [address], [place] [address] Oct, Chronic kidney disease 585.9 [facility] [id number] [place] [address] Oct, [facility] [address] [place] [address] Oct, Chronic kidney disease, unspecified 585.9 ; Hypercalcemia 275.42 ; Hyperlipidemia 272.4 ; Essential hypertension 401.9 ; Chronic pain syndrome 338.4 ; Insomnia 780.52 ; Constipation 564.00 ; Environmental allergies V15.09 and Anxiety 300.00 [facility] [address], [place] [address] 15 Oct, 2014 Chronic kidney disease 585.9 [facility] [address], [place] [address] 15 Oct, 2014 [facility] [id number] [address] Oct, Chronic kidney disease 585.9 and Hyperlipidemia 272.4 [facility] [id number] [address] Oct, [facility] [address], [place] [address] Oct, [facility] [address], [place] [address] Sep, [facility] [address], [place] [address] Sep, [facility] [address], [place] [address] Sep, Chronic kidney disease 585.9 and Hyperlipidemia 272.4 [facility] [address], [place] [address] Sep, [facility] [address], [place] [address] August, [facility] [address], [place] [address] August, [facility] [address], [place] [address] Jul, [facility] [address], [place] [address] Jul, [facility] [place] [facility] [address] [id number] [place] [address] Jun, [facility] [place] [facility] [address] [id number] [place] [address] Jun, [facility] [place] [facility] [address] [id number] [place] [address] Jun, [facility] [place] [facility] [address] [id number] [place] [address] Jun, [facility] [place] [facility] [address] [id number] [place] [address] Jun, [facility] [place] [facility] [address] [id number] [place] [address] Jun, [facility] [place] [facility] [address] [id number] [place] [address] Jun, [facility] [place] [facility] [address] [id number] [place] [address] Jun, [facility] [place] [facility] [address] [id number] [place] [address] May, [facility] [place] [facility] [address] [id number] [place] [address] May, [facility] [place] [facility] [address] [id number] [place] [address] May, [facility] [place] [facility] [address] [id number] [address] May, [facility] [place] [facility] [address] [id number] [place] [address] Apr, [facility] [place] [facility] [address] [id number] [place] [address] Apr, [facility] [place] [facility] [address] [id number] [place] [address] Apr, [facility] [place] [facility] [address] [id number] [address] Apr, [facility] [place] [facility] [address] [id number] [place] [address] Apr, [facility] [place] [facility] [address] [id number] [place] [address] Apr, [facility] [place] [facility] [address] [id number] [place] [address] Apr, [facility] [place] [facility] [address] [id number] [place] [address] Apr, [facility] [place] [facility] [address] [id number] [place] [address] Apr, [facility] [place] [facility] [address] [id number] [place] [address] Apr, [facility] [place] [facility] [address] [id number] [place] [address] Apr, [facility] [place] [facility] [address] [id number] [place] [address] Mar, [facility] [place] [facility] [address] [id number] [place] [address] Mar, [facility] [place] [facility] [address] [facility] [id number] [place] [address] Feb, [facility] [place] [facility] [address] [id number] [place] [address] Feb, [facility] [place] [facility] [address] [id number], [place] [address] Feb, [facility] [place] [facility] [address] [id number] [place] [address] Feb, [facility] [place] [facility] [address] [id number] [place] [address] Feb, [facility] [place] [facility] [address] [id number] [place] [address] Feb, [facility] [place] [facility] [address] [id number] [place] [address] Feb, [facility] [place] [facility] [address] [id number] [place] [address] Feb, [facility] [place] [facility] [address] [id number] [place] [address] Feb, [facility] [place] [facility] [address] [id number] [place] [address] Feb, [facility] [place] [facility] [address] [id number] [place] [address] Jan, [facility] [place] [facility] [address] [id number] [place] [address] Jan, [facility] [place] [facility] [address] [id number] [place] [address] Jan, [facility] [place] [facility] [address] [id number] [place] [address] Jan, [facility] [place] [facility] [address] [id number] [place] [address] Jan, [facility] [place] [facility] [address] [id number] [place] [address] Jan, [facility] [place] [facility] [address] [id number] [place] [address] Jan, [facility] [place] [facility] [address] [id number] [place] [address] Jan, [facility] [place] [facility] [address] [id number] [place] [address] 16 Jan, 2014 [facility] [place] [facility] [address] [id number] [place] [address] Jan, [facility] [place] [facility] [address] [id number] [place] [address] Jan, [facility] [place] [facility] [address] [id number] [place] [address] Dec, 2013 [facility] [place] [facility] [address] [id number] [place] [address] Dec, 2013 [facility] [place] [facility] [address] [id number] [place] [address] Dec, [facility] [place] [facility] [address] [id number] [place] [address] Dec, [facility] [place] [facility] [address] [id number] [place] [address] Dec, 2013 [facility] [place] [facility] [address] [id number] [place] [address] Dec, [facility] [place] [facility] [address] [id number] [place] [address] Dec, [facility] [place] [facility] [address] [id number] [place] [address] Dec, [facility] [place] [facility] [address] [id number] [place] [address] Nov, [facility] [place] [facility] [address] [id number] [place] [address] Nov, [facility] [place] [facility] [address] [id number] [place] [address] Nov, [facility] [place] [facility] [address] [id number] [address] Nov, [facility] [place] [facility] [address] [id number], [place] [address] Nov, [facility] [place] [facility] [address] [id number] [place] [address] Nov, [facility] [place] [facility] [address] [id number] [place] [address] Nov, [facility] [place] [facility] [address] [id number] [place] [address] Nov, [facility] [place] [facility] [address] [id number] [place] [address] Oct, [facility] [place] [facility] [address] [id number] [place] [address] Oct, [facility] [place] [facility] [address] [id number] [place] [address] Oct, [facility] [place] [facility] [address] [id number] [place] [address] Oct, [facility] [place] [facility] [address] [id number] [place] [address] Sep, [facility] [place] [facility] [address] [id number] [place] [address] Sep, [facility] [place] [facility] [address] [id number] [place] [address] Sep, [facility] [place] [facility] [address] [id number] [place] [address] Sep, [facility] [place] [facility] [address] [id number] [place] [address] Sep, [facility] [place] [facility] [address] [id number] [place] [address] Sep, [facility] [place] [facility] [address] [id number] [place] [address] Sep, [facility] [place] [facility] [address] [id number] [place] [address] Sep, [facility] [place] [facility] [address] [id number] [place] [address] August, [facility] [place] [facility] [address] [id number] [place] [address] August, [facility] [place] [facility] [address] [id number] [place] [address] August, [facility] [place] [facility] [address] [id number] [place] [address] August, [facility] [place] [facility] [address] [id number] [place] [address] August, [facility] [place] [facility] [address] [id number] [place] [address] August, [facility] [place] [facility] [address] [id number] [place] [address] August, [facility] [place] [facility] [address] [id number] [place] [address] August, [facility] [address] [id number] [place] [address] August, [facility] [place] [facility] [address] [id number] [place] [address] August, [facility] [address] [id number] [place] [address] Jul, [facility] [place] [facility] [address] [id number] [place] [address] Jul, [facility] [place] [facility] [address] [id number] [place] [address] Jul, [facility] [place] [facility] [address] [id number] [place] [address] Jul, [facility] [place] [facility] [address] [id number] [place] [address] Jul, [facility] [place] [facility] [address] [id number] [place] [address] Jul, [facility] [place] [facility] [address] [id number] [place] [address] Jul, [facility] [place] [facility] [address] [id number] [place] [address] Jul, [facility] [place] [facility] [address] [id number] [place] [address] Jun, [facility] [place] [facility] [address] [id number] [place] [address] Jun, [facility] [place] [facility] [address] [id number] [place] [address] Jun, [facility] [place] [facility] [address] [id number] [place] [address] Jun, [facility] [place] [facility] [address] [id number] [place] [address] Jun, [facility] [place] [facility] [address] [id number] [place] [address] Jun, [facility] [place] [facility] [address] [id number] [place] [address] May, [facility] [place] [facility] [address] [id number] [place] [address] May, [facility] [place] [facility] [address] [id number] [place] [address] May, [facility] [place] [facility] [address] [id number] [place] [address] May, [facility] [place] [facility] [address] [id number] [place] [address] May, [facility] [place] [facility] [address] [id number] [place] [address] May, [facility] [place] [facility] [address] [facility] [id number] [place] [address] May, [facility] [place] [facility] [address] [id number] [place] [address] Apr, [facility] [place] [facility] [address] [id number] [place] [address] Apr, [facility] [place] [facility] [address] [id number] [place] [address] Apr, [facility] [place] [facility] [address] [id number], [place] [address] Apr, [facility] [place] [facility] [address] [id number] [place] [address] Apr, [facility] [address] [id number] [place] [address] Apr, [facility] [place] [facility] [address] [id number] [place] [address] Mar, [facility] [place] [facility] [address] [id number] [place] [address] Mar, [facility] [place] [facility] [address] [id number] [place] [address] Mar, [facility] [place] [facility] [address] [id number] [place] [address] Mar, [facility] [address] [id number] [place] [address] Mar, [facility] [place] [facility] [address] [id number] [place] [address] Mar, [facility] [place] [facility] [address] [id number] [place] [address] Mar, [facility] [place] [facility] [address] [id number] [place] [address] Mar, [facility] [place] [facility] [address] [id number] [place] [address] Mar, [facility] [place] [facility] [address] [id number] [place] [address] Mar, [facility] [place] [facility] [address] [id number] [place] [address] Feb, [facility] [place] [facility] [address] [id number] [place] [address] Feb, [facility] [place] [facility] [address] [id number] [place] [address] Feb, [facility] [place] [facility] [address] [id number], [place] [address] Feb, [facility] [place] [facility] [address] [id number] [place] [address] Feb, [facility] [place] [facility] [address] [id number] [place] [address] Feb, [facility] [place] [facility] [address] [id number] [place] [address] Feb, [facility] [place] [facility] [address] [id number], [place] [address] Feb, [facility] [place] [facility] [address] [id number] [place] [address] Feb, [facility] [place] [facility] [address] [id number] [place] [address] Feb, [facility] [place] [facility] [address] [id number] [place] [address] Jan, [facility] [place] [facility] [address] [id number], [place] [address] Jan, [facility] [place] [facility] [address] [id number], [place] [address] Jan, [facility] [place] [facility] [address] [id number] [place] [address] Jan, [facility] [place] [facility] [address] [id number], [place] [address] Jan, [facility] [place] [facility] [address] [id number], [place] [address] Jan, [facility] [place] [facility] [address] [id number] [place] [address] 17 Jan, 2013 [facility] [place] [facility] [address] [id number], [place] [address] Jan, [facility] [place] [facility] [address] [id number], [place] [address] Jan, [facility] [place] [facility] [address] [id number] [place] [address] Dec, [facility] [address] [id number] [place] [address] Dec, [facility] [address] [id number] [place] [address] Dec, [facility] [address] [id number] [place] [address] Dec, [facility] [address] [id number] [place] [address] Nov, [facility] [address] [id number] [place] [address] Nov, [facility] [address] [id number] [place] [address] Nov, [facility] [address] [id number] [place] [address] Nov, [facility] [address] [id number] [place] [address] Nov, [facility] [address] [id number] [place] [address] Nov, [facility] [address] [id number] [place] [address] Oct, [facility] [place] [facility] [address] [id number] [place] [address] Oct, [facility] [address] [id number] [place] [address] Oct, [facility] [place] [facility] [address] [id number] [place] [address] Oct, [facility] [place] [facility] [address] [id number] [place] [address] Sep, [facility] [place] [facility] [address] [id number] [place] [address] Sep, [facility] [address] [id number] [place] [address] 17 Sep, 2012 [facility] [place] [facility] [address] [id number] [place] [address] 14 Sep, 2012 [facility] [place] [facility] [address] [id number] [place] [address] 10 Sep, 2012 [facility] [place] [facility] [address] [id number] [place] [address] August, [facility] [address] [id number] [place] [address] August, [facility] [address] [id number] [place] [address] Jul, [facility] [address] [id number] [place] [address] Jul, [facility] [address] [id number] [place] [address] 15 Jul, 2012 [facility] [place] [facility] [address] [id number] [place] [address] Jul, [facility] [address] [id number] [place] [address] Jul, [facility] [place] [facility] [address] [id number] [place] [address] Jun, [facility] [place] [facility] [address] [id number], [place] [address] Jun, [facility] [place] [facility] [address] [id number] [place] [address] 15 Jun, 2012 [facility] [place] [facility] [address] [id number] [place] [address] 06 Jun, 2012 [facility] [place] [facility] [address] [id number], [place] [address] Jun, [facility] [place] [facility] [address] [id number], [place] [address] May, [facility] [address] [id number] [place] [address] May, [facility] [address] [id number] [place] [address] May, [facility] [address] [id number] [place] [address] May, [facility] [address] [id number] [place] [address] May, [facility] [address] [id number] [place] [address] 14 May, 2012 [facility] [address] [id number] [place] [address] May, [facility] [address] [id number] [place] [address] May, [facility] [address] [id number] [place] [address] May, [facility] [address] [id number] [place] [address] Apr, [facility] [address] [id number] [place] [address] Apr, [facility] [address] [id number] [place] [address] Apr, [facility] [address] [id number] [place] [address] Apr, [facility] [address] [id number] [place] [address] Apr, [facility] [address] [id number] [place] [address] Mar, [facility] [address] [id number] [place] [address] Mar, [facility] [place] [facility] [address] [id number] [place] [address] Mar, [facility] [place] [facility] [address] [id number] [place] [address] Mar, [facility] [place] [facility] [address] [id number] [place] [address] Mar, [facility] [place] [facility] [address] [id number] [place] [address] Mar, [facility] [place] [facility] [address] [id number] [place] [address] Mar, [facility] [place] [facility] [address] [id number] [place] [address] Mar, [facility] [place] [facility] [address] [id number] [place] [address] Mar, [facility] [place] [facility] [address] [id number] [place] [address] Mar, [facility] [place] [facility] [address] [id number] [place] [address] 30 Feb, 2012 [facility] [place] [facility] [address] [id number], [place] [address] Feb, [facility] [place] [facility] [address] [id number], [place] [address] Feb, [facility] [place] [facility] [address] [id number], [place] [address] Feb, [facility] [place] [facility] [address] [id number] [place] [address] Feb, [facility] [place] [facility] [address] [id number] [place] [address] Feb, [facility] [place] [facility] [address] [id number], [place] [address] Feb, [facility] [place] [facility] [address] [id number], [place] [address] 20 Feb, 2012 [facility] [place] [facility] [address] [id number] [place] [address] 16 Feb, 2012 [facility] [place] [facility] [address] [facility] [id number], [place] [address] 16 Feb, 2012 [facility] [place] [facility] [address] [facility] [id number] [place] [address] 13 Feb, 2012 [facility] [place] [facility] [address] [id number], [place] [address] 13 Feb, 2012 [facility] [place] [facility] [address] [facility] [id number] [place] [address], [place] [address] 12 Feb, 2012 [facility] [place] [facility] [address] [facility] [id number], [place] [address] Feb, [facility] [place] [facility] [id number] [place] [address] Feb, [facility] [place] [facility] [address] [facility] [id number], [place] [address] 08 Feb, 2012 [facility] [place] [facility] [address] [id number], [place] [address] Feb, [facility] [place] [facility] [address] [facility] [id number], [place] [address] Feb, [facility] [place] [facility] [address] [facility] [id number], [place] [address] 31 Jan, 2012 [facility] [place] [facility] [address] [facility] [id number], [place] [address] 31 Jan, 2012 [facility] [place] [facility] [address] [facility] [id number], [place] [address] 31 Jan, 2012 [facility] [place] [facility] [address] [facility] [id number], [place] [address] 31 Jan, 2012 [facility] [place] [facility] [address] [facility] [id number], [place] [address] 24 Jan, 2012 [facility] [place] [facility] [address] [id number] [place] [address] Jan, [facility] [place] [facility] [address] [id number] [place] [address] Jan, [facility] [place] [facility] [address] [id number] [place] [address] Jan, [facility] [place] [facility] [address] [id number] [place] [address] Jan, [facility] [place] [facility] [address] [id number] [place] [address] Jan, [facility] [place] [facility] [address] [id number] [place] [address] Dec, [facility] [place] [facility] [address] [id number] [place] [address] Dec, [facility] [place] [facility] [address] [id number] [place] [address] Dec, [facility] [place] [facility] [address] [id number] [place] [address] Dec, [facility] [place] [facility] [address] [id number] [place] [address] Nov, [facility] [place] [facility] [address] [id number] [place] [address] Nov, [facility] [place] [facility] [address] [id number] [place] [address] Nov, [facility] [place] [facility] [address] [id number] [place] [address] Nov, [facility] [place] [facility] [address] [id number] [place] [address] Nov, [facility] [place] [facility] [address] [id number] [place] [address] Nov, [facility] [place] [facility] [address] [id number] [place] [address] Oct, [facility] [place] [facility] [address] [id number] [place] [address] Oct, [facility] [place] [facility] [address] [id number] [place] [address] Oct, [facility] [place] [facility] [address] [id number] [place] [address] Oct, [facility] [place] [facility] [address] [id number] [place] [address] Oct, [facility] [place] [facility] [address] [id number] [place] [address] Sep, [facility] [place] [facility] [address] [id number] [place] [address] Sep, [facility] [place] [facility] [address] [id number] [place] [address] Sep, [facility] [place] [facility] [address] [id number] [place] [address] Sep, [facility] [place] [facility] [address] [id number] [place] [address] Sep, [facility] [place] [facility] [address] [id number] [place] [address] August, [facility] [place] [facility] [address] [id number] [place] [address] August, [facility] [place] [facility] [address] [id number], [place] [address] August, [facility] [place] [facility] [address] [id number] [place] [address] August, [facility] [place] [facility] [address] [id number] [place] [address] Jul, [facility] [place] [facility] [address] [id number] [place] [address] Jul, [facility] [place] [facility] [address] [id number] [place] [address] 19 Jul, 2011 [facility] [place] [facility] [address] [id number] [place] [address] 18 Jul, 2011 [facility] [place] [facility] [address] [id number] [place] [address] 18 Jul, 2011 [facility] [place] [facility] [address] [id number] [place] [address] 12 Jul, 2011 [facility] [place] [facility] [address] [id number] [place] [address] 11 Jul, 2011 [facility] [place] [facility] [address] [id number] [place] [address] 10 Jul, 2011 [facility] [place] [facility] [address] [id number] [place] [address] 09 Jul, 2011 [facility] [address] [id number] [place] [address] 07 Jul, 2011 [facility] [place] [facility] [address] [id number] [place] [address] 05 Jul, 2011 [facility] [place] [facility] [address] [id number] [place] [address] Jul, [facility] [place] [facility] [address] [id number] [place] [address] Jul, [facility] [place] [facility] [address] [id number] [place] [address] 02 Jul, 2011 [facility] [place] [facility] [address] [id number] [place] [address] 28 Jun, 2011 [facility] [place] [facility] [address] [id number] [place] [address] 27 Jun, 2011 [facility] [place] [facility] [address] [id number] [place] [address] 20 Jun, 2011 [facility] [place] [facility] [address] [id number] [place] [address] Jun, [facility] [place] [facility] [address] [id number] [place] [address] May, [facility] [place] [facility] [address] [id number] [place] [address] May, [facility] [place] [facility] [address] [id number] [place] [address] May, [facility] [place] [facility] [address] [id number] [place] [address] Apr, [facility] [address] [id number] [place] [address] Apr, [facility] [place] [facility] [address] [id number] [place] [address] Apr, [facility] [place] [facility] [address] [id number] [place] [address] Apr, [facility] [address] [id number] [place] [address] Apr, [facility] [place] [facility] [address] [id number] [place] [address] Mar, [facility] [address] [id number] [place] [address] Mar, [facility] [place] [facility] [address] [id number] [place] [address] Mar, [facility] [place] [facility] [address] [id number], [place] [address] Mar, [facility] [place] [facility] [address] [id number] [place] [address] Mar, [facility] [place] [facility] [address] [id number] [place] [address] Mar, [facility] [place] [facility] [address] [id number], [place] [address] 05 Mar, 2011 [facility] [place] [facility] [address] [id number], [place] [address] 29 Feb, 2011 [facility] [place] [facility] [address] [id number] [place] [address] 25 Feb, 2011 [facility] [place] [facility] [address] [id number] [place] [address] Feb, [facility] [place] [facility] [address] [id number] [place] [address] Feb, [facility] [place] [facility] [address] [id number] [place] [address] 16 Feb, 2011 [facility] [place] [facility] [address] [id number] [place] [address] 14 Feb, 2011 [facility] [place] [facility] [address] [id number] [place] [address] 10 Feb, 2011 [facility] [place] [facility] [address] [facility] [id number] [place] [address] 31 Jan, 2011 [facility] [place] [facility] [address] [id number] [place] [address] 31 Jan, 2011 [facility] [place] [facility] [address] [facility] [id number] [place] [address] 31 Jan, 2011 [facility] [place] [facility] [address] [facility] [id number] [place] [address] 18 Jan, 2011 [facility] [place] [facility] [address] [facility] [id number] [place] [address] 17 Jan, 2011 [facility] [place] [facility] [address] [id number] [place] [address] 17 Jan, 2011 [facility] [place] [facility] [address] [id number] [place] [address] 17 Jun, 2010 [facility] [place] [facility] [address] [facility] [id number] [place] [address] 30 Mar, 2010 [facility] [place] [facility] [address] [facility] [id number] [place] [address] 20 Mar, 2010 [facility] [place] [facility] [address] [id number] [place] [address] 14 Mar, 2010 [facility] [place] [facility] [address] [id number] [place] [address] 14 Mar, 2010 [facility] [place] [facility] [address] [id number] [place] [address] 13 Mar, 2010 [facility] [place] [facility] [address] [id number] [place] [address] 07 Mar, 2010 [facility] [place] [facility] [address] [id number] [place] [address] 02 Mar, 2010 [facility] [place] [facility] [address] [id number] [place] [address] Mar, [facility] [place] [facility] [address] [facility] [id number] [place] [address] 30 Feb, 2010 [facility] [place] [facility] [address] [id number] [place] [address] 29 Feb, 2010 [facility] [place] [facility] [address] [id number] [place] [address] 17 Feb, 2010 [facility] [place] [facility] [address] [id number] [place] [address] 17 Feb, 2010 [facility] [place] [facility] [address] [facility] [id number] [place] [address] 16 Feb, 2010 [facility] [place] [facility] [address] [id number] [place] [address] 08 Feb, 2010 [facility] [place] [facility] [address] [id number] [place] [address] 04 Feb, 2010 [facility] [place] [facility] [address] [id number] [place] [address] Feb, [facility] [place] [facility] [address] [facility] [id number] [place] [address] Jan, [facility] [place] [facility] [address] [id number] [place] [address] Jan, [facility] [address] [facility] [id number], [place] [address] Jan, [facility] [address] [facility] [id number], [place] [address] Jan, [facility] [id number], [place] [address] Mar, [facility] [address] [facility] [id number], [place] [address] Mar, [facility] [address] [facility] [id number], [place] [address] Mar, [facility] [id number] [place] [address] Mar, [facility] [id number], [place] [address] Mar, [facility] [id number], [place] [address] Mar, [facility] [id number], [place] [address] Feb, [facility] [id number], [place] [address] Feb, [facility] [id number], [place] [address] Jan, [facility] [id number], [place] [address] Sep, [facility] [address] [id number], [place] [address] May, IMMUNIZATIONS No Known Immunizations SOCIAL HISTORY Never Assessed REASON FOR VISIT Controlled Med Refill 03/05 PLAN OF CARE VITAL SIGNS MEDICATIONS Medication Instructions Dosage Frequency Start Date End Date Duration Status [place] 10-325 MG Orally every 6 hrs 1 tablet as needed 6h 15 Feb, 2018 28 days Active Soma 350 MG Orally Four times a day 1 tablet as needed 6h 28 days Active Alprazolam 2 MG Orally [...] Surgical History Left ear surgery Hospitalization History [facility]- Spontaneous Pneumothorax Hospitalization History [facility]- Colon resection Hospitalization History via [facility] - diarrhea/ couldnt urinate nov 2017
--- OUTSIDE RECORDS SUMMARY | 2018-10-15 01:19 | XMS REPORT ---
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 Name Role Phone AGUSTÍN PRATER Unavailable PROBLEMS Type Condition ICD9-CM Code FRV34-PH Code Onset Dates Condition Status SNOMED Code Problem Anxiety F41.9 Active 81778599 Problem Chronic pain G89.29 Active 90799054 Problem Constipation K59.00 Active 35708793 Problem Insomnia G47.00 Active 205900780 Problem HTN (hypertension) I10 Active 93442028 Problem Chronic kidney disease, stage III (moderate) N18.3 Active 826434479 Problem Primary insomnia F51.01 Active 5732588 Problem Thoracic back pain, unspecified back pain laterality, unspecified chronicity M54.6 Active 940082742 Problem Hyperlipidemia E78.5 Active 50608184 Problem Environmental allergies Z91.09 Active 305875621 Problem Vitamin D deficiency E55.9 Active 00998616 ALLERGIES No Information ENCOUNTERS Encounter Location Date Diagnosis [place] [id number] [place] [address] Feb, Thoracic back pain, unspecified back pain laterality, unspecified chronicity M54.6 [place] [id number] [place] [address] Jan, [place] [address] [place] [id number] [place] [address] Jan, Anxiety F41.9 and Thoracic back pain, unspecified back pain laterality, unspecified chronicity M54.6 [place] [address] [place] [id number] [place] [address] Dec, Diarrhea of presumed infectious origin R19.7 [place] [address] [place] [id number] [place] [address] Dec, Diarrhea of presumed infectious origin R19.7 [facility] [address] [address] 18 Dec, 2017 Thoracic back pain, unspecified back pain laterality, unspecified chronicity M54.6 [facility] [id number] [place] [address] 17 Dec, 2017 [place] [address] [place] [id number] [place] [address] Dec, Anxiety F41.9 and Thoracic back pain, unspecified back pain laterality, unspecified chronicity M54.6 [place] [address] [place] [id number] [place] [address] Dec, Diarrhea of presumed infectious origin R19.7 [place] [address] [place] [id number] [place] [address] Dec, [place] [address] [place] [id number] [place] [address] Dec, Anxiety F41.9 and Thoracic back pain, unspecified back pain laterality, unspecified chronicity M54.6 [place] [address] [place] [id number] [place] [address] Dec, Anxiety F41.9 and Thoracic back pain, unspecified back pain laterality, unspecified chronicity M54.6 [address] [facility] [employer] [facility] [facility] [address] [place] [id number] Dec, Diarrhea of presumed infectious origin R19.7 ; Anxiety F41.9 ; Thoracic back pain, unspecified back pain laterality, unspecified chronicity M54.6 and HTN (hypertension) I10 [place] [id number] [place] [address] Dec, Anxiety F41.9 [facility] [address] [place] [id number] Dec, Anxiety F41.9 ; Diarrhea of presumed infectious origin R19.7 ; Generalized abdominal pain R10.84 and Localized edema R60.0 [place] [address] [place] [id number] [place] [address] Nov, [facility] [address] [place] [id number] Nov, Anxiety F41.9 ; Urinary retention R33.9 ; Diarrhea of presumed infectious origin R19.7 ; Weakness R53.1 ; Acute kidney failure, unspecified N17.9 ; Chronic kidney disease, stage III (moderate) N18.3 and Thoracic back pain, unspecified back pain laterality, unspecified chronicity M54.6 [place] [address] [place] [id number] [place] [address] Oct, Thoracic back pain, unspecified back pain laterality, unspecified chronicity M54.6 and Anxiety F41.9 [place] [address] [place] [id number] [place] [address] Sep, Thoracic back pain, unspecified back pain laterality, unspecified chronicity M54.6 and Anxiety F41.9 [place] [address] [place] [id number] [place] [address] Sep, Thoracic back pain, unspecified back pain laterality, unspecified chronicity M54.6 ; Anxiety F41.9 and Encounter for medication monitoring Z51.81 [place] [address] [place] [id number] [place] [address] August, [place] [address] [place] [id number] [place] [address] August, Thoracic back pain, unspecified back pain laterality, unspecified chronicity M54.6 and Anxiety F41.9 [place] [address] [place] [id number] [place] [address] August, Hyperlipidemia E78.5 and HTN (hypertension) I10 [place] [address] [place] [id number] [place] [address] August, [place] [address] [address] August, Medicare welcome exam Z00.00 ; Chronic kidney failure N18.9 ; Anxiety F41.9 ; Chronic pain G89.29 ; Insomnia G47.00 ; Hyperlipidemia E78.5 ; HTN (hypertension) I10 and Thoracic back pain, unspecified back pain laterality, unspecified chronicity M54.6 [place] [address] [place] [id number] [place] [address] 13 Jul, 2017 [place] [address] [address] Jul, [place] [address] [place] [id number] [place] [address] Jul, [place] [address] [address] Jul, Anxiety F41.9 [place] [address] [place] [id number] [place] [address] Jul, Thoracic back pain, unspecified back pain laterality, unspecified chronicity M54.6 and Anxiety F41.9 [place] [address] [place] [id number] [place] [address] Jun, Thoracic back pain, unspecified back pain laterality, unspecified chronicity M54.6 and Anxiety F41.9 [place] [address] [place] [id number] [place] [address] May, Thoracic back pain, unspecified back pain laterality, unspecified chronicity M54.6 and Anxiety F41.9 [place] [address] [place] [id number] [place] [address] Apr, Thoracic back pain, unspecified back pain laterality, unspecified chronicity M54.6 and Anxiety F41.9 [place] [address] [place] [id number] [place] [address] Mar, [place] [address] [place] [id number] [place] [address] Mar, Thoracic back pain, unspecified back pain laterality, unspecified chronicity M54.6 and Anxiety F41.9 [place] [address] [place] [id number] [place] [address] Mar, Thoracic back pain, unspecified back pain laterality, unspecified chronicity M54.6 ; HTN (hypertension) I10 ; Hyperlipidemia E78.5 and Anxiety F41.9 [place] [address] [place] [id number] [place] [address] Feb, Thoracic back pain, unspecified back pain laterality, unspecified chronicity M54.6 and Anxiety F41.9 [place] [address] [place] [id number] [place] [address] Nov, [place] [address] [address] Oct, [place] [address] [place] [id number] [place] [address] Oct, Thoracic back pain, unspecified back pain laterality, unspecified chronicity M54.6 [place] [address] [place] [id number] [place] [address] Oct, HTN (hypertension) I10 ; Constipation K59.00 ; Hyperlipidemia E78.5 ; Thoracic back pain, unspecified back pain laterality, unspecified chronicity M54.6 ; Chronic pain G89.29 ; Anxiety F41.9 ; Chronic kidney failure N18.9 ; Environmental allergies Z91.09 ; Vitamin D deficiency E55.9 and Primary insomnia F51.01 [place] [address] [place] [id number] [place] [address] Sep, Anxiety F41.9 [place] [address] [place] [id number] [place] [address] Sep, [place] [address] [place] [id number] [place] [address] August, Anxiety F41.9 [place] [address] [place] [id number] [place] [address] August, [place] [address] [address] Jul, Anxiety F41.9 [facility] [address] [place] [id number] [place] [address] Jul, [facility] [address] [place] [id number] [place] [address] Jun, Anxiety F41.9 [facility] [address] [place] [id number] [place] [address] Jun, [facility] [address] [place] [id number] [place] [address] May, [facility] [address] [place] [id number] [place] [address] May, [facility] [address] [place] [id number] [place] [address] May, [facility] [address] [place] [id number] [place] [address] Apr, [facility] [address] [place] [id number] [place] [address] Apr, [facility] [address] [place] [id number] [place] [address] Apr, Anxiety F41.9 [facility] [address] [place] [id number] [place] [address] Apr, Anxiety F41.9 [facility] [address] [place] [id number] [place] [address] Apr, [facility] [address] [place] [id number] [place] [address] Mar, HTN (hypertension) I10 ; Tremor R25.1 ; Hypercholesterolemia E78.0 ; Constipation K59.00 ; Chronic pain G89.29 ; Hyperlipidemia E78.5 ; Insomnia G47.00 ; Anxiety F41.9 and Thoracic back pain, unspecified back pain laterality, unspecified chronicity M54.6 [facility] [address] [address] Mar, Tremor R25.1 ; HTN (hypertension) I10 ; Hypercholesterolemia E78.0 ; Constipation K59.00 ; Chronic pain G89.29 ; Hyperlipidemia E78.5 ; Insomnia G47.00 ; Anxiety F41.9 and Thoracic back pain, unspecified back pain laterality, unspecified chronicity M54.6 [facility] [address] [place] [id number] [place] [address] Mar, [facility] [address] [place] [id number] [place] [address] Mar, [facility] [address] [place] [id number] [place] [address] Feb, [facility] [address] [place] [id number] [place] [address] Jan, [facility] [address] [place] [id number] [place] [address] Jan, [facility] [address] [place] [id number] [place] [address] Dec, [facility] [address] [place] [id number] [place] [address] Nov, [facility] [address] [place] [id number] [place] [address] Nov, [facility] [address] [place] [id number] [place] [address] Oct, Anxiety F41.9 [facility] [address] [place] [id number] [place] [address] Oct, Chronic pain G89.29 [facility] [address] [place] [id number] [place] [address] Sep, [facility] [address] [place] [id number] [place] [address] Sep, [place] [address] [place] [id number] [place] [address] Sep, [place] [address] [address] Sep, [place] [address] [place] [id number] [place] [address] Sep, Chronic pain syndrome G89.4 [place] [address] [address] Sep, HTN (hypertension) I10 ; Chronic pain G89.29 ; Hypercholesterolemia E78.0 ; Chronic kidney failure N18.9 ; Constipation, unspecified constipation type K59.00 ; Anxiety F41.9 and Thoracic back pain, unspecified back pain laterality, unspecified chronicity M54.6 [place] [address] [place] [id number] [place] [address] August, Chronic pain syndrome G89.4 [place] [address] [place] [id number] [place] [address] August, Chronic pain syndrome G89.4 [place] [address] [place] [id number] [place] [address] Jul, Anxiety disorder, unspecified F41.9 and Chronic pain syndrome G89.4 [place] [address] [place] [id number] [place] [address] Jul, Insomnia, unspecified G47.00 and Chronic pain syndrome G89.4 [place] [address] [place] [id number] [place] [address] Jul, Allergic rhinitis J30.9 [place] [address] [place] [id number] [place] [address] Jul, Constipation, unspecified K59.00 [place] [address] [place] [id number] [place] [address] Jul, [place] [address] [place] [id number] [place] [address] Jun, [facility] [address] [address] Jun, [facility] [address] [address] Jun, [facility] [address] [address] Jun, [facility] [address] [place] [id number] [place] [address] Jun, [facility] [address] [place] [address] Jun, [facility] [address] [place] [id number] [place] [address] May, [facility] [address] [place] [id number] [place] [address] May, [facility] [address] [address] May, Anxiety F41.9 ; Insomnia G47.00 ; Hyperlipidemia E78.5 ; Chronic pain G89.29 ; HTN (hypertension) I10 ; Environmental allergies V15.09 and Constipation 564.00 [facility] [address] [address] Apr, [facility] [address] [address] Apr, [facility] [address] [address] Apr, [facility] [address] [place] [id number] [place] [address] Mar, [facility] [address] [address] Mar, [facility] [address] [place] [address] Mar, [facility] [address] [place] [id number] [place] [address] Feb, [facility] [address] [address] Feb, [facility] [address] [place] [id number] [place] [address] Feb, [facility] [address] [address] Jan, HTN (hypertension) I10 ; Constipation K59.00 ; Chronic pain G89.29 ; Hyperlipidemia E78.5 ; Hypercholesterolemia E78.0 ; Insomnia G47.00 and Anxiety F41.9 [place] [address] [place] [id number] [place] [address] Jan, [address] [address] Dec, [facility] [address] [place] [id number] [place] [address] Nov, [place] [address] [address] Oct, Chronic kidney disease, unspecified 585.9 ; Chronic pain syndrome 338.4 ; Hyperlipidemia 272.4 and Essential hypertension 401.9 [place] [id number] [place] [address] Oct, Chronic kidney disease 585.9 [facility] [address] [place] [id number] [place] [address] Oct, [facility] [address] [place] [address] Oct, Chronic kidney disease, unspecified 585.9 ; Hypercalcemia 275.42 ; Hyperlipidemia 272.4 ; Essential hypertension 401.9 ; Chronic pain syndrome 338.4 ; Insomnia 780.52 ; Constipation 564.00 ; Environmental allergies V15.09 and Anxiety 300.00 [place] [address] [facility] [id number] [place] [address] 15 Oct, 2014 Chronic kidney disease 585.9 [facility] [address] [facility] [id number] [place] [address] 15 Oct, 2014 [facility] [address] [facility] [id number] [place] [address] 14 Oct, 2014 Chronic kidney disease 585.9 and Hyperlipidemia 272.4 [facility] [address] [facility] [id number] [place] [address] 10 Oct, 2014 [facility] [address] [facility] [id number] [place] [address] 10 Oct, 2014 [facility] [address] [facility] [id number] [place] [address] 18 Sep, 2014 [facility] [address] [facility] [id number] [place] [address] Sep, [facility] [address] [facility] [id number] [place] [address] 15 Sep, 2014 Chronic kidney disease 585.9 and Hyperlipidemia 272.4 [facility] [address] [facility] [id number] [place] [address] Sep, [facility] [address] [place] [id number] [place] [address] August, [facility] [address] [facility] [id number] [place] [address] August, [facility] [address] [facility] [id number] [place] [address] 14 Jul, 2014 [facility] [address] [facility] [id number] [place] [address] Jul, [facility] [address] [facility] [id number] [place] [address] Jun, [facility] [address] [facility] [id number] [place] [address] Jun, [facility] [place] [facility] [address] [id number] [place] [address] Jun, [facility] [place] [facility] [address] [id number] [place] [address] Jun, [facility] [place] [facility] [address] [id number] [place] [address] Jun, [facility] [place] [facility] [address] [id number] [place] [address] Jun, [facility] [place] [facility] [address] [id number] [place] [address] Jun, [facility] [place] [facility] [address] [id number] [place] [address] Jun, [facility] [place] [facility] [address] [id number] [place] [address] May, [facility] [place] [facility] [address] [id number] [place] [address] May, [facility] [place] [facility] [address] [id number] [place] [address] May, [facility] [place] [facility] [address] [id number] [place] [address] May, [facility] [place] [facility] [address] [id number] [place] [address] Apr, [facility] [place] [facility] [address] [id number] [place] [address] Apr, [facility] [place] [facility] [address] [id number] [place] [address] Apr, [facility] [place] [facility] [address] [id number] [place] [address] Apr, [facility] [place] [facility] [address] [id number] [place] [address] Apr, [facility] [place] [facility] [address] [id number] [place] [address] Apr, [facility] [address] [id number] [place] [address] Apr, [facility] [place] [facility] [address] [id number] [place] [address] Apr, [facility] [address] [id number] [place] [address] Apr, [facility] [place] [facility] [address] [id number] [place] [address] Apr, [facility] [address] [id number] [place] [address] Apr, [facility] [address] [id number] [place] [address] Mar, [facility] [place] [facility] [address] [id number] [place] [address] Mar, [facility] [address] [id number] [place] [address] Feb, [facility] [place] [facility] [address] [id number] [place] [address] Feb, [facility] [address] [id number] [place] [address] Feb, [facility] [place] [facility] [address] [id number] [place] [address] Feb, [facility] [place] [facility] [address] [id number] [place] [address] Feb, [facility] [place] [facility] [address] [id number] [place] [address] Feb, [facility] [place] [facility] [address] [id number] [place] [address] Feb, [facility] [place] [facility] [address] [id number] [place] [address] Feb, [facility] [place] [facility] [address] [id number] [place] [address] Feb, [facility] [place] [facility] [address] [id number] [place] [address] Feb, [facility] [place] [facility] [address] [id number] [place] [address] Jan, [facility] [place] [facility] [address] [id number] [place] [address] Jan, [facility] [place] [facility] [address] [id number] [place] [address] Jan, [facility] [place] [facility] [address] [id number] [place] [address] Jan, [facility] [place] [facility] [address] [id number] [place] [address] Jan, [facility] [place] [facility] [address] [id number] [place] [address] Jan, [facility] [place] [facility] [address] [id number] [place] [address] Jan, [facility] [place] [facility] [address] [id number], [place] [address] Jan, [facility] [place] [facility] [address] [id number], [place] [address] Jan, [facility] [place] [facility] [address] [id number], [place] [address] Jan, [facility] [place] [facility] [address] [id number] [place] [address] Jan, [facility] [place] [facility] [address] [id number], [place] [address] Dec, [facility] [place] [facility] [address] [id number], [place] [address] Dec, [facility] [place] [facility] [address] [id number], [place] [address] Dec, 2013 [facility] [place] [facility] [address] [id number] [place] [address] Dec, 2013 [facility] [place] [facility] [address] [id number] [place] [address] Dec, [facility] [place] [facility] [address] [id number] [place] [address] Dec, [facility] [place] [facility] [address] [id number] [place] [address] Dec, [facility] [place] [facility] [address] [id number] [place] [address] Dec, [facility] [place] [facility] [address] [id number] [place] [address] Nov, [facility] [place] [facility] [address] [id number] [place] [address] Nov, [facility] [place] [facility] [address] [id number] [place] [address] Nov, [facility] [place] [facility] [address] [id number] [place] [address] Nov, [facility] [place] [facility] [address] [id number] [place] [address] Nov, [facility] [place] [facility] [address] [id number] [place] [address] Nov, [facility] [place] [facility] [address] [id number], [place] [address] Nov, [facility] [place] [facility] [address] [id number] [place] [address] Nov, [facility] [place] [facility] [address] [id number] [place] [address] Oct, [facility] [place] [facility] [address] [id number] [place] [address] Oct, [facility] [place] [facility] [address] [id number] [place] [address] Oct, [facility] [place] [facility] [address] [id number] [place] [address] Oct, [facility] [place] [facility] [address] [id number] [place] [address] Sep, [facility] [place] [facility] [address] [id number] [place] [address] Sep, [facility] [place] [facility] [address] [id number] [place] [address] Sep, [facility] [place] [facility] [address] [id number] [place] [address] Sep, [facility] [place] [facility] [address] [id number] [place] [address] Sep, [facility] [place] [facility] [address] [id number] [place] [address] Sep, [facility] [place] [facility] [address] [id number] [place] [address] Sep, [facility] [place] [facility] [address] [id number] [place] [address] Sep, [facility] [place] [facility] [address] [id number] [place] [address] August, [facility] [place] [facility] [address] [id number] [place] [address] August, [facility] [place] [facility] [address] [id number] [place] [address] August, [facility] [place] [facility] [address] [id number] [place] [address] August, [facility] [place] [facility] [address] [id number] [place] [address] August, [facility] [place] [facility] [address] [id number] [place] [address] August, [facility] [place] [facility] [address] [id number] [place] [address] August, [facility] [place] [facility] [address] [id number] [place] [address] August, [facility] [place] [facility] [address] [id number] [place] [address] August, [facility] [place] [facility] [address] [id number] [place] [address] August, [facility] [place] [facility] [address] [id number] [place] [address] Jul, [facility] [place] [facility] [address] [id number] [place] [address] Jul, [facility] [place] [facility] [address] [id number] [place] [address] Jul, [facility] [place] [facility] [address] [id number] [place] [address] Jul, [facility] [place] [facility] [address] [id number] [place] [address] Jul, [facility] [place] [facility] [address] [id number] [place] [address] Jul, [facility] [place] [facility] [address] [id number] [place] [address] Jul, [facility] [place] [facility] [address] [id number] [place] [address] Jul, [facility] [place] [facility] [address] [id number] [place] [address] Jun, [facility] [place] [facility] [address] [id number] [place] [address] Jun, [facility] [place] [facility] [address] [id number] [place] [address] Jun, [facility] [place] [facility] [address] [id number] [place] [address] Jun, [facility] [place] [facility] [address] [id number] [place] [address] Jun, [facility] [place] [facility] [address] [id number] [place] [address] Jun, [facility] [place] [facility] [address] [id number] [place] [address] May, [facility] [place] [facility] [address] [id number] [place] [address] May, [facility] [place] [facility] [address] [id number] [place] [address] May, [facility] [place] [facility] [address] [id number] [place] [address] May, [facility] [place] [facility] [address] [id number] [place] [address] May, [facility] [place] [facility] [address] [id number] [place] [address] May, [facility] [place] [facility] [address] [id number] [place] [address] May, [facility] [place] [facility] [address] [id number] [place] [address] Apr, [facility] [place] [facility] [address] [id number] [place] [address] Apr, [facility] [place] [facility] [address] [id number] [place] [address] Apr, [facility] [place] [facility] [address] [id number] [place] [address] Apr, [facility] [place] [facility] [address] [id number] [place] [address] Apr, [facility] [place] [facility] [address] [id number] [place] [address] Apr, [facility] [address] [id number] [place] [address] Mar, [facility] [place] [facility] [address] [id number] [place] [address] Mar, [facility] [place] [facility] [address] [id number] [place] [address] Mar, [facility] [place] [facility] [address] [id number] [place] [address] Mar, [facility] [place] [facility] [address] [id number] [place] [address] Mar, [facility] [place] [facility] [address] [id number] [place] [address] Mar, [facility] [place] [facility] [address] [id number] [place] [address] Mar, [facility] [place] [facility] [address] [id number] [place] [address] Mar, [facility] [place] [facility] [address] [id number] [place] [address] Mar, [facility] [place] [facility] [address] [id number] [place] [address] Mar, [facility] [place] [facility] [address] [id number], [place] [address] Feb, [facility] [place] [facility] [address] [id number], [place] [address] Feb, [facility] [place] [facility] [address] [id number] [place] [address] Feb, [facility] [place] [facility] [address] [id number], [place] [address] Feb, [facility] [place] [facility] [address] [id number] [place] [address] 14 Feb, 2013 [facility] [place] [facility] [address] [id number] [place] [address] 14 Feb, 2013 [facility] [place] [facility] [address] [id number] [place] [address] Feb, [facility] [place] [facility] [address] [id number] [place] [address] Feb, [facility] [place] [facility] [address] [id number] [place] [address] Feb, [facility] [place] [facility] [address] [id number] [place] [address] Feb, [facility] [place] [facility] [address] [id number] [place] [address] Jan, [facility] [place] [facility] [address] [id number] [place] [address] Jan, [facility] [place] [facility] [address] [id number] [place] [address] Jan, [facility] [place] [facility] [address] [id number] [place] [address] Jan, [facility] [place] [facility] [address] [id number] [place] [address] Jan, [facility] [place] [facility] [address] [id number] [place] [address] Jan, [facility] [place] [facility] [address] [id number] [place] [address] 17 Jan, 2013 [facility] [place] [facility] [address] [id number] [place] [address] Jan, [facility] [place] [facility] [address] [id number] [place] [address] Jan, [facility] [place] [facility] [address] [id number] [place] [address] Dec, [facility] [place] [facility] [address] [id number] [place] [address] 23 Dec, 2012 [facility] [place] [facility] [address] [id number] [place] [address] Dec, [facility] [place] [facility] [address] [id number] [place] [address] Dec, [facility] [place] [facility] [address] [id number] [place] [address] Nov, [facility] [place] [facility] [address] [id number] [place] [address] Nov, [facility] [place] [facility] [address] [id number] [place] [address] Nov, [facility] [place] [facility] [address] [id number] [place] [address] Nov, [facility] [place] [facility] [address] [id number] [place] [address] Nov, [facility] [place] [facility] [address] [id number] [place] [address] Nov, [facility] [place] [facility] [address] [id number] [place] [address] Oct, [facility] [place] [facility] [address] [id number] [place] [address] Oct, [facility] [place] [facility] [address] [id number] [place] [address] Oct, [facility] [place] [facility] [address] [id number] [place] [address] Oct, [facility] [place] [facility] [address] [id number] [place] [address] Sep, [facility] [place] [facility] [address] [id number] [place] [address] Sep, [facility] [place] [facility] [address] [id number] [place] [address] Sep, [facility] [place] [facility] [address] [id number] [place] [address] 14 Sep, 2012 [facility] [address] [id number] [place] [address] 10 Sep, 2012 [facility] [place] [facility] [address] [id number] [place] [address] 17 Aug, 2012 [facility] [address] [id number] [place] [address] August, [facility] [place] [facility] [address] [id number] [place] [address] Jul, [facility] [address] [id number] [place] [address] Jul, [facility] [place] [facility] [address] [id number] [place] [address] 15 Jul, 2012 [facility] [address] [id number] [place] [address] Jul, [facility] [place] [facility] [address] [id number] [place] [address] Jul, [facility] [address] [id number] [place] [address] Jun, [facility] [place] [facility] [address] [id number] [place] [address] Jun, [facility] [place] [facility] [address] [id number] [place] [address] 15 Jun, 2012 [facility] [place] [facility] [address] [id number] [place] [address] 06 Jun, 2012 [facility] [place] [facility] [address] [id number] [place] [address] Jun, [facility] [place] [facility] [address] [id number] [place] [address] 28 May, 2012 [facility] [place] [facility] [address] [id number] [place] [address] May, [facility] [place] [facility] [address] [id number] [place] [address] May, [facility] [address] [id number] [place] [address] May, [facility] [address] [id number] [place] [address] May, [facility] [address] [id number] [place] [address] 14 May, 2012 [facility] [address] [id number] [place] [address] May, [facility] [address] [id number] [place] [address] 08 May, 2012 [facility] [address] [id number] [place] [address] May, [facility] [address] [id number] [place] [address] Apr, [facility] [address] [id number] [place] [address] Apr, [facility] [address] [id number] [place] [address] Apr, [facility] [address] [id number] [place] [address] Apr, [facility] [address] [id number] [place] [address] Apr, [facility] [address] [id number] [place] [address] Mar, [facility] [place] [facility] [address] [id number] [place] [address] Mar, [facility] [address] [id number] [place] [address] Mar, [facility] [address] [id number] [place] [address] Mar, [facility] [place] [facility] [address] [id number] [place] [address] Mar, [facility] [place] [facility] [address] [id number] [place] [address] Mar, [facility] [place] [facility] [address] [id number] [place] [address] 17 Mar, 2012 [facility] [place] [facility] [address] [id number] [place] [address] 17 Mar, 2012 [facility] [place] [facility] [address] [id number] [place] [address] Mar, [facility] [place] [facility] [address] [id number] [place] [address] Mar, [facility] [place] [facility] [address] [id number] [place] [address] 30 Feb, 2012 [facility] [place] [facility] [address] [id number] [place] [address] 30 Feb, 2012 [facility] [place] [facility] [address] [id number] [place] [address] 29 Feb, 2012 [facility] [place] [facility] [address] [id number] [place] [address] 29 Feb, 2012 [facility] [place] [facility] [address] [id number] [place] [address] Feb, [facility] [place] [facility] [address] [id number] [place] [address] 23 Feb, 2012 [facility] [place] [facility] [address] [id number] [place] [address] Feb, [facility] [place] [facility] [address] [id number] [place] [address] 20 Feb, 2012 [facility] [place] [facility] [address] [id number] [place] [address] 16 Feb, 2012 [facility] [place] [facility] [address] [id number] [place] [address] 16 Feb, 2012 [facility] [place] [facility] [address] [id number] [place] [address] 13 Feb, 2012 [facility] [place] [facility] [address] [id number] [place] [address] 13 Feb, 2012 [facility] [place] [facility] [address] [id number] [place] [address] 12 Feb, 2012 [facility] [place] [facility] [address] [id number] [place] [address] Feb, [facility] [place] [facility] [address] [id number] [place] [address], [place] [address] Feb, [facility] [place] [facility] [address] [id number] [place] [address] Feb, [facility] [place] [facility] [address] [id number] [place] [address] Feb, [facility] [place] [facility] [address] [id number] [place] [address] Feb, [facility] [place] [facility] [address] [facility] [id number] [place] [address] Jan, [facility] [place] [facility] [address] [facility] [id number] [place] [address] Jan, [facility] [place] [facility] [address] [id number] [place] [address] 31 Jan, 2012 [facility] [place] [facility] [address] [id number] [place] [address] 31 Jan, 2012 [facility] [place] [facility] [address] [id number] [place] [address] 24 Jan, 2012 [facility] [place] [facility] [address] [id number] [place] [address] 24 Jan, 2012 [facility] [place] [facility] [address] [id number] [place] [address] Jan, [facility] [place] [facility] [address] [id number] [place] [address] Jan, [facility] [place] [facility] [address] [id number] [place] [address] Jan, [facility] [place] [facility] [address] [id number] [place] [address] Jan, [facility] [place] [facility] [address] [id number] [place] [address] Dec, [facility] [place] [facility] [address] [id number] [place] [address] Dec, [facility] [place] [facility] [address] [id number] [place] [address] Dec, [facility] [place] [facility] [address] [id number] [place] [address] Dec, [facility] [place] [facility] [address] [id number] [place] [address] Nov, [facility] [place] [facility] [address] [id number] [place] [address] Nov, [facility] [place] [facility] [address] [id number] [place] [address] Nov, [facility] [place] [facility] [address] [id number] [place] [address] Nov, [facility] [place] [facility] [address] [id number] [address] Nov, [facility] [place] [facility] [address] [id number] [place] [address] Nov, [facility] [place] [facility] [address] [id number] [place] [address] Oct, [facility] [place] [facility] [address] [id number], [place] [address] Oct, [facility] [place] [facility] [address] [id number], [place] [address] Oct, [facility] [address] [id number] [place] [address] Oct, [facility] [place] [facility] [address] [id number] [place] [address] Oct, [facility] [address] [id number] [place] [address] Sep, [facility] [place] [facility] [address] [id number] [place] [address] Sep, [facility] [place] [facility] [address] [id number] [place] [address] Sep, [facility] [place] [facility] [address] [id number] [place] [address] Sep, [facility] [address] [id number] [place] [address] Sep, [facility] [address] [id number] [place] [address] August, [facility] [address] [id number] [place] [address] August, [facility] [address] [facility] [id number] [place] [address] August, [facility] [address] [id number] [place] [address] August, [facility] [place] [facility] [address] [id number] [place] [address] Jul, [facility] [place] [facility] [address] [id number] [place] [address] 24 Jul, 2011 [facility] [place] [facility] [address] [facility] [id number] [place] [address] Jul, [facility] [place] [facility] [address] [id number] [place] [address] 18 Jul, 2011 [facility] [place] [facility] [address] [id number] [place] [address] 18 Jul, 2011 [facility] [place] [facility] [address] [id number] [place] [address] 12 Jul, 2011 [facility] [place] [facility] [address] [id number] [place] [address] 11 Jul, 2011 [facility] [place] [facility] [address] [id number] [place] [address] 10 Jul, 2011 [facility] [place] [facility] [address] [id number] [place] [address] Jul, [facility] [place] [facility] [address] [id number] [place] [address] Jul, [facility] [place] [facility] [address] [id number] [place] [address] 05 Jul, 2011 [facility] [place] [facility] [address] [id number] [place] [address] Jul, [facility] [place] [facility] [address] [id number] [place] [address] Jul, [facility] [place] [facility] [address] [id number] [place] [address] Jul, [facility] [place] [facility] [address] [id number] [place] [address] 28 Jun, 2011 [facility] [place] [facility] [address] [id number] [place] [address] 27 Jun, 2011 [facility] [place] [facility] [address] [id number] [place] [address] 20 Jun, 2011 [facility] [place] [facility] [address] [id number] [place] [address] 16 Jun, 2011 [facility] [place] [facility] [address] [id number] [place] [address] May, [facility] [place] [facility] [address] [id number] [place] [address] 16 May, 2011 [facility] [address] [id number] [place] [address] May, [facility] [place] [facility] [address] [id number] [place] [address] Apr, [facility] [place] [facility] [address] [id number] [place] [address] Apr, [facility] [place] [facility] [address] [id number] [place] [address] Apr, [facility] [place] [facility] [address] [id number] [place] [address] Apr, [facility] [place] [facility] [address] [id number] [place] [address] Apr, [facility] [place] [facility] [address] [id number] [place] [address] Mar, [facility] [place] [facility] [address] [id number] [place] [address] Mar, [facility] [place] [facility] [address] [id number] [place] [address] Mar, [facility] [place] [facility] [address] [id number] [place] [address] Mar, [facility] [place] [facility] [address] [id number] [address] Mar, [facility] [place] [facility] [address] [id number], [place] [address] Mar, [facility] [place] [facility] [address] [id number] [place] [address] Mar, [facility] [place] [facility] [address] [id number] [place] [address] Feb, [facility] [place] [facility] [address] [id number] [place] [address] Feb, [facility] [place] [facility] [address] [id number] [place] [address] 22 Feb, 2011 [facility] [address] [id number] [place] [address] 22 Feb, 2011 [facility] [place] [facility] [address] [id number] [place] [address] 16 Feb, 2011 [facility] [address] [id number] [place] [address] 14 Feb, 2011 [facility] [place] [facility] [address] [id number] [place] [address] 10 Feb, 2011 [facility] [address] [id number] [place] [address] 31 Jan, 2011 [facility] [place] [facility] [address] [id number] [place] [address] 31 Jan, 2011 [facility] [place] [facility] [address] [id number] [place] [address] 31 Jan, 2011 [facility] [place] [facility] [address] [id number] [place] [address] 18 Jan, 2011 [facility] [place] [facility] [address] [id number] [place] [address] 17 Jan, 2011 [facility] [address] [id number] [place] [address] 17 Jan, 2011 [facility] [place] [facility] [address] [id number] [place] [address] 17 Jun, 2010 [facility] [place] [facility] [address] [id number] [place] [address] 30 Mar, 2010 [facility] [place] [facility] [address] [id number] [place] [address] 20 Mar, 2010 [facility] [place] [facility] [address] [id number] [place] [address] 14 Mar, 2010 [facility] [place] [facility] [address] [id number] [place] [address] 14 Mar, 2010 [facility] [place] [facility] [address] [id number] [place] [address] 13 Mar, 2010 [facility] [place] [facility] [address] [id number] [place] [address] 07 Mar, 2010 [facility] [place] [facility] [address] [id number] [place] [address] 02 Mar, 2010 [facility] [place] [facility] [address] [id number] [place] [address] Mar, [facility] [place] [address] [id number] [place] [address] 30 Feb, 2010 [facility] [place] [facility] [address] [id number] [place] [address] 29 Feb, 2010 [facility] [address] [facility] [id number] [place] [address] 17 Feb, 2010 [facility] [address] [id number], [place] [address] 17 Feb, 2010 [facility] [place] [facility] [address] [facility] [id number] [place] [address] 16 Feb, 2010 [facility] [address] [facility] [id number], [place] [address] 08 Feb, 2010 [facility] [address] [facility] [id number], [place] [address] Feb, [facility] [facility] [address] [id number], [place] [address] Feb, [facility] [facility] [address] [id number], [place] [address] Jan, [facility] [address] [id number], [place] [address] Jan, [facility] [address] [facility] [id number], [place] [address] Jan, [facility] [address] [id number], [place] [address] Jan, [facility] [id number] [address] Mar, [facility] [id number], [place] [address] Mar, [facility] [id number], [place] [address] Mar, [facility] [id number] [place] [address] Mar, [facility] [id number] [place] [address] Mar, [facility] [id number] [place] [address] Mar, [facility] [id number] [place] [address] Feb, [facility] [id number], [place] [address] Feb, [facility] [id number], [place] [address] Jan, [facility] [id number] [address] Sep, [facility] [id number] [address] May, IMMUNIZATIONS No Known Immunizations SOCIAL HISTORY Never Assessed REASON FOR VISIT Controlled Med Refill 02/26 PLAN OF CARE VITAL SIGNS MEDICATIONS Medication Instructions Dosage Frequency Start Date End Date Duration Status [place] 10-325 MG Orally every 6 hrs 1 tablet as needed 6h Feb, 7 days Active RESULTS No Results PROCEDURES No Known procedures INSTRUCTIONS MEDICATIONS ADMINISTERED No Known Medications MEDICAL (GENERAL) HISTORY Type Description Date Medical History Hypertension Medical History Hyperlipidemia Medical History chronic back pain since age 26 Medical History Anxiety Medical History Hx of Spontaneous Pneumothorax Surgical History right knee arthroscopy Surgical History colon resection Surgical History tonsillectomy Surgical History Left ear surgery Hospitalization History [facility] [place]- Spontaneous Pneumothorax Hospitalization History [facility]- Colon resection Hospitalization [facility] - diarrhea/ couldnt urinate nov 2017
--- OUTSIDE RECORDS SUMMARY | 2018-10-15 01:20 | XMS REPORT ---
Author Author AGUSTÍN PRATER Organization [facility] Address [address] [place] [address] Care Team Providers Care Public Safety Director Name Role Phone AGUSTÍN PRATER Unavailable PROBLEMS Type Condition ICD9-CM Code VQB09-MC Code Onset Dates Condition Status SNOMED Code Problem Anxiety F41.9 Active 43527420 Problem Chronic pain G89.29 Active 44249571 Problem Constipation K59.00 Active 00072448 Problem Insomnia G47.00 Active 920285860 Problem HTN (hypertension) I10 Active 45870358 Problem Chronic kidney disease, stage III (moderate) N18.3 Active 816772521 Problem Primary insomnia F51.01 Active 6897520 Problem Thoracic back pain, unspecified back pain laterality, unspecified chronicity M54.6 Active 101895333 Problem Hyperlipidemia E78.5 Active 04107724 Problem Environmental allergies Z91.09 Active 656514522 Problem Vitamin D deficiency E55.9 Active 78391783 ALLERGIES No Information ENCOUNTERS Encounter Location Date Diagnosis [facility] [id number] [place] [address] Jan, [facility] [id number] [place] [address] Jan, Anxiety F41.9 and Thoracic back pain, unspecified back pain laterality, unspecified chronicity M54.6 [facility] [id number] [place] [address] Dec, Diarrhea of presumed infectious origin R19.7 [facility] [id number] [place] [address] Dec, Diarrhea of presumed infectious origin R19.7 [facility] [id number] [place] [address] 18 Dec, 2017 Thoracic back pain, unspecified back pain laterality, unspecified chronicity M54.6 [facility] [address] [address] 17 Dec, 2017 [facility] [id number] [place], [place] [address] Dec, Anxiety F41.9 and Thoracic back pain, unspecified back pain laterality, unspecified chronicity M54.6 [facility] [id number] [place] [address] Dec, Diarrhea of presumed infectious origin R19.7 [facility] [id number] [place] [address] Dec, [facility] [id number] [place] [address] Dec, Anxiety F41.9 and Thoracic back pain, unspecified back pain laterality, unspecified chronicity M54.6 [facility] [id number] [place] [address] Dec, Anxiety F41.9 and Thoracic back pain, unspecified back pain laterality, unspecified chronicity M54.6 [facility] [employer] [address] [place] [id number] Dec, Diarrhea of presumed infectious origin R19.7 ; Anxiety F41.9 ; Thoracic back pain, unspecified back pain laterality, unspecified chronicity M54.6 and HTN (hypertension) I10 [facility] [id number] [place] [address] Dec, Anxiety F41.9 [facility] [employer] [facility] [employer] [address] [place] [id number] Dec, Anxiety F41.9 ; Diarrhea of presumed infectious origin R19.7 ; Generalized abdominal pain R10.84 and Localized edema R60.0 [facility] [id number] [place] [address] Nov, [facility] [employer] [facility] [employer] [address] [place] [id number] Nov, Anxiety F41.9 ; Urinary retention R33.9 ; Diarrhea of presumed infectious origin R19.7 ; Weakness R53.1 ; Acute kidney failure, unspecified N17.9 ; Chronic kidney disease, stage III (moderate) N18.3 and Thoracic back pain, unspecified back pain laterality, unspecified chronicity M54.6 [facility] [id number] [place] [address] Oct, Thoracic back pain, unspecified back pain laterality, unspecified chronicity M54.6 and Anxiety F41.9 [facility] [address] [address] Sep, Thoracic back pain, unspecified back pain laterality, unspecified chronicity M54.6 and Anxiety F41.9 [facility] [id number] [place] [address] Sep, Thoracic back pain, unspecified back pain laterality, unspecified chronicity M54.6 ; Anxiety F41.9 and Encounter for medication monitoring Z51.81 [facility] [id number] [place] [address] August, [facility] [address] [address] August, Thoracic back pain, unspecified back pain laterality, unspecified chronicity M54.6 and Anxiety F41.9 [facility] [address] [address] August, Hyperlipidemia E78.5 and HTN (hypertension) I10 [facility] [id number] [place] [address] August, [facility] [address] [address] August, Medicare welcome exam Z00.00 ; Chronic kidney failure N18.9 ; Anxiety F41.9 ; Chronic pain G89.29 ; Insomnia G47.00 ; Hyperlipidemia E78.5 ; HTN (hypertension) I10 and Thoracic back pain, unspecified back pain laterality, unspecified chronicity M54.6 [facility] [address] [address] Jul, [facility] [id number] [place] [address] Jul, [facility] [id number] [place] [address] Jul, [facility] [id number] [place] [address] Jul, Anxiety F41.9 [facility] [id number] [place] [address] Jul, Thoracic back pain, unspecified back pain laterality, unspecified chronicity M54.6 and Anxiety F41.9 [facility] [id number] [place] [address] Jun, Thoracic back pain, unspecified back pain laterality, unspecified chronicity M54.6 and Anxiety F41.9 [facility] [id number] [place] [address] May, Thoracic back pain, unspecified back pain laterality, unspecified chronicity M54.6 and Anxiety F41.9 [facility] [address] [address] Apr, Thoracic back pain, unspecified back pain laterality, unspecified chronicity M54.6 and Anxiety F41.9 [facility] [address] [address] Mar, [facility] [id number] [place] [address] Mar, Thoracic back pain, unspecified back pain laterality, unspecified chronicity M54.6 and Anxiety F41.9 [facility] [address] [address] Mar, Thoracic back pain, unspecified back pain laterality, unspecified chronicity M54.6 ; HTN (hypertension) I10 ; Hyperlipidemia E78.5 and Anxiety F41.9 [facility] [address] [address] Feb, Thoracic back pain, unspecified back pain laterality, unspecified chronicity M54.6 and Anxiety F41.9 [facility] [address] [address] Nov, [facility] [address] [address] Oct, [facility] [address] [address] Oct, Thoracic back pain, unspecified back pain laterality, unspecified chronicity M54.6 [facility] [address] [address] Oct, HTN (hypertension) I10 ; Constipation K59.00 ; Hyperlipidemia E78.5 ; Thoracic back pain, unspecified back pain laterality, unspecified chronicity M54.6 ; Chronic pain G89.29 ; Anxiety F41.9 ; Chronic kidney failure N18.9 ; Environmental allergies Z91.09 ; Vitamin D deficiency E55.9 and Primary insomnia F51.01 [facility] [id number] [place] [address] Sep, Anxiety F41.9 [facility] [address] [address] Sep, [facility] [id number] [place] [address] August, Anxiety F41.9 [facility] [address] [address] August, [facility] [id number] [place] [address] Jul, Anxiety F41.9 [place] [address] [place] [address] Jul, [facility] [id number] [place] [address] Jun, Anxiety F41.9 [facility] [id number] [place] [address] Jun, [facility] [id number] [place] [address] May, [facility] [id number] [place] [address] May, [facility] [id number] [place] [address] May, [facility] [id number] [place] [address] Apr, [facility] [id number] [place] [address] Apr, [facility] [id number] [place] [address] Apr, Anxiety F41.9 [facility] [id number] [place] [address] Apr, Anxiety F41.9 [facility] [id number] [place] [address] Apr, [facility] [id number] [place] [address] Mar, HTN (hypertension) I10 ; Tremor R25.1 ; Hypercholesterolemia E78.0 ; Constipation K59.00 ; Chronic pain G89.29 ; Hyperlipidemia E78.5 ; Insomnia G47.00 ; Anxiety F41.9 and Thoracic back pain, unspecified back pain laterality, unspecified chronicity M54.6 [facility] [address] [address] Mar, Tremor R25.1 ; HTN (hypertension) I10 ; Hypercholesterolemia E78.0 ; Constipation K59.00 ; Chronic pain G89.29 ; Hyperlipidemia E78.5 ; Insomnia G47.00 ; Anxiety F41.9 and Thoracic back pain, unspecified back pain laterality, unspecified chronicity M54.6 [facility] [id number] [place] [address] Mar, [facility] [id number] [place] [address] Mar, [facility] [id number] [place] [address] Feb, [facility] [id number] [place] [address] Jan, [facility] [id number] [place] [address] Jan, [facility] [id number] [place] [address] Dec, [facility] [id number] [place] [address] Nov, [facility] [id number] [place] [address] Nov, [facility] [id number] [place] [address] Oct, Anxiety F41.9 [facility] [id number] [place] [address] Oct, Chronic pain G89.29 [facility] [id number] [place] [address] Sep, [facility] [id number] [place] [address] Sep, [facility] [id number] [place] [address] Sep, [facility] [id number] [place] [address] Sep, [facility] [id number] [place] [address] Sep, Chronic pain syndrome G89.4 [facility] [id number] [place] [address] Sep, HTN (hypertension) I10 ; Chronic pain G89.29 ; Hypercholesterolemia E78.0 ; Chronic kidney failure N18.9 ; Constipation, unspecified constipation type K59.00 ; Anxiety F41.9 and Thoracic back pain, unspecified back pain laterality, unspecified chronicity M54.6 [facility] [id number] [place] [address] August, Chronic pain syndrome G89.4 [facility] [id number] [place] [address] August, Chronic pain syndrome G89.4 [facility] [id number] [place] [address] Jul, Anxiety disorder, unspecified F41.9 and Chronic pain syndrome G89.4 [facility] [facility] [id number] [place] [address] Jul, Insomnia, unspecified G47.00 and Chronic pain syndrome G89.4 [facility] [facility] [id number] [place] [address] Jul, Allergic rhinitis J30.9 [facility] [id number] [place] [address] Jul, Constipation, unspecified K59.00 [facility] [id number] [place] [address] Jul, [facility] [id number] [place] [address] Jun, [facility] [id number] [place] [address] Jun, [facility] [address] [address] Jun, [facility] [address] [address] Jun, [facility] [address] [address] Jun, [facility] [id number] [place] [address] Jun, [facility] [address] [address] May, [facility] [id number] [place] [address] May, [facility] [address] [address] May, Anxiety F41.9 ; Insomnia G47.00 ; Hyperlipidemia E78.5 ; Chronic pain G89.29 ; HTN (hypertension) I10 ; Environmental allergies V15.09 and Constipation 564.00 [facility] [address] [address] Apr, [facility] [address] [address] Apr, [facility] [address] [address] Apr, [facility] [address] [address] Mar, [facility] [address] [address] Mar, [facility] [address] [address] Mar, [facility] [address] [address] Feb, [facility] [id number] [place] [address] Feb, [facility] [id number] [place] [address] Feb, [facility] [id number] [place] [address] Jan, HTN (hypertension) I10 ; Constipation K59.00 ; Chronic pain G89.29 ; Hyperlipidemia E78.5 ; Hypercholesterolemia E78.0 ; Insomnia G47.00 and Anxiety F41.9 [facility] [id number] [place] [address] Jan, [facility] [address] [address] Dec, [facility] [address] [address] Nov, [facility] [address] [address] Oct, Chronic kidney disease, unspecified 585.9 ; Chronic pain syndrome 338.4 ; Hyperlipidemia 272.4 and Essential hypertension 401.9 [facility] [place] [id number] [place] [address] Oct, Chronic kidney disease 585.9 [facility] [id number] [place] [address] Oct, [facility] [id number] [place] [address] Oct, Chronic kidney disease, unspecified 585.9 ; Hypercalcemia 275.42 ; Hyperlipidemia 272.4 ; Essential hypertension 401.9 ; Chronic pain syndrome 338.4 ; Insomnia 780.52 ; Constipation 564.00 ; Environmental allergies V15.09 and Anxiety 300.00 [facility] [id number] [place] [address] Oct, Chronic kidney disease 585.9 [place] [address] [place] [address] 15 Oct, 2014 [facility] [address] [id number] [place] [address] 14 Oct, 2014 Chronic kidney disease 585.9 and Hyperlipidemia 272.4 [facility] [address] [id number] [place] [address] 10 Oct, 2014 [facility] [place] [facility] [address] [id number] [place] [address] 10 Oct, 2014 [facility] [place] [facility] [address] [id number] [place] [address] 18 Sep, 2014 [facility] [place] [facility] [address] [id number] [place] [address] 15 Sep, 2014 [facility] [id number] [address] 15 Sep, 2014 Chronic kidney disease 585.9 and Hyperlipidemia 272.4 [facility] [address] [id number] [place] [address] Sep, [facility] [place] [facility] [address] [id number] [place] [address] August, [facility] [place] [facility] [address] [facility] [id number] [place] [address] August, [facility] [place] [facility] [address] [id number] [place] [address] 14 Jul, 2014 [facility] [place] [facility] [address] [id number] [place] [address] 13 Jul, 2014 [facility] [place] [facility] [address] [id number] [place] [address] 20 Jun, 2014 [facility] [place] [facility] [address] [facility] [id number] [place] [address] 20 Jun, 2014 [facility] [place] [facility] [address] [facility] [id number] [place] [address] 16 Jun, 2014 [facility] [place] [facility] [address] [facility] [id number] [place] [address] Jun, [facility] [place] [facility] [address] [id number] [place] [address] Jun, [facility] [place] [facility] [address] [id number] [place] [address] Jun, [facility] [place] [facility] [address] [id number] [place] [address] Jun, [facility] [place] [facility] [address] [id number] [place] [address] Jun, [facility] [place] [facility] [address] [id number] [place] [address] May, [facility] [place] [facility] [address] [id number] [place] [address] May, [facility] [place] [facility] [address] [id number] [place] [address] May, [facility] [place] [facility] [address] [id number] [place] [address] May, [facility] [place] [facility] [address] [id number] [place] [address] Apr, [facility] [place] [facility] [address] [id number] [place] [address] Apr, [facility] [place] [facility] [address] [id number] [place] [address] Apr, [facility] [place] [facility] [address] [id number] [place] [address] Apr, [facility] [place] [facility] [address] [id number] [place] [address] Apr, [facility] [place] [facility] [address] [id number] [place] [address] Apr, [facility] [place] [facility] [address] [id number] [place] [address] Apr, [facility] [place] [facility] [address] [id number] [place] [address] Apr, [facility] [place] [facility] [address] [id number] [place] [address] Apr, [facility] [place] [facility] [address] [id number] [place] [address] Apr, [facility] [place] [facility] [address] [id number] [place] [address] Apr, [facility] [place] [facility] [address] [id number] [place] [address] Mar, [facility] [place] [facility] [address] [id number] [place] [address] Mar, [facility] [place] [facility] [address] [id number] [place] [address] Feb, [facility] [place] [facility] [address] [id number] [place] [address] Feb, [facility] [place] [facility] [address] [id number] [place] [address] Feb, [facility] [place] [facility] [address] [id number] [place] [address] Feb, [facility] [place] [facility] [address] [id number] [place] [address] Feb, [facility] [place] [facility] [address] [id number] [address] Feb, [facility] [place] [facility] [address] [id number] [place] [address] Feb, [facility] [place] [facility] [address] [id number] [place] [address] Feb, [facility] [place] [facility] [address] [id number] [place] [address] Feb, [facility] [place] [facility] [address] [id number] [place] [address] Feb, [facility] [place] [facility] [address] [id number] [place] [address] Jan, [facility] [place] [facility] [address] [id number] [place] [address] Jan, [facility] [place] [facility] [address] [id number] [place] [address] Jan, [facility] [place] [facility] [address] [id number] [place] [address] Jan, [facility] [place] [facility] [address] [id number] [place] [address] Jan, [facility] [place] [facility] [address] [id number] [place] [address] Jan, [facility] [place] [facility] [address] [id number] [place] [address] Jan, [facility] [place] [facility] [address] [id number] [place] [address] 17 Jan, 2014 [facility] [place] [facility] [address] [id number] [place] [address] 16 Jan, 2014 [facility] [place] [facility] [address] [facility] [id number] [place] [address] Jan, [facility] [place] [facility] [address] [id number] [place] [address] Jan, [facility] [place] [facility] [address] [id number] [place] [address] 26 Dec, 2013 [facility] [place] [facility] [address] [id number] [place] [address] 26 Dec, 2013 [facility] [place] [facility] [address] [id number] [place] [address] 19 Dec, 2013 [facility] [place] [facility] [address] [id number] [place] [address] 19 Dec2013 [facility] [place] [facility] [address] [id number] [place] [address] Dec, 2013 [facility] [place] [facility] [address] [id number] [place] [address] Dec, [facility] [place] [facility] [address] [id number] [place] [address] Dec, [facility] [place] [facility] [address] [id number] [place] [address] Dec, [facility] [place] [facility] [address] [id number] [place] [address] Nov, [facility] [place] [facility] [address] [id number] [place] [address] Nov, [facility] [place] [facility] [address] [id number] [place] [address] Nov, [facility] [place] [facility] [address] [id number] [place] [address] Nov, [facility] [place] [facility] [address] [id number] [place] [address] Nov, [facility] [place] [facility] [address] [id number] [place] [address] Nov, [facility] [place] [facility] [address] [id number] [place] [address] Nov, [facility] [place] [facility] [address] [id number] [place] [address] Nov, [facility] [place] [facility] [address] [id number] [place] [address] Oct, [facility] [place] [facility] [address] [id number] [place] [address] Oct, [facility] [place] [facility] [address] [id number] [place] [address] Oct, [facility] [place] [facility] [address] [id number] [place] [address] Oct, [facility] [place] [facility] [address] [id number] [place] [address] Sep, [facility] [place] [facility] [address] [id number] [place] [address] Sep, [facility] [place] [facility] [address] [id number] [place] [address] Sep, [facility] [place] [facility] [address] [id number] [place] [address] Sep, [facility] [place] [facility] [address] [id number] [place] [address] Sep, [facility] [place] [facility] [address] [id number] [place] [address] Sep, [facility] [place] [facility] [address] [id number] [place] [address] Sep, [facility] [place] [facility] [address] [id number] [place] [address] Sep, [facility] [place] [facility] [address] [id number] [place] [address] August, [facility] [place] [facility] [address] [id number] [place] [address] August, [facility] [place] [facility] [address] [id number] [place] [address] August, [facility] [place] [facility] [address] [id number] [place] [address] August, [facility] [place] [facility] [address] [id number] [place] [address] August, [facility] [place] [facility] [address] [id number] [place] [address] August, [facility] [place] [facility] [address] [id number] [place] [address] August, [facility] [place] [facility] [address] [id number] [place] [address] August, [facility] [address] [id number] [place] [address] August, [facility] [address] [id number] [place] [address] August, [facility] [address] [id number] [place] [address] Jul, [facility] [address] [id number] [place] [address] Jul, [facility] [address] [id number] [place] [address] Jul, [facility] [address] [id number] [place] [address] Jul, [facility] [address] [id number] [place] [address] Jul, [facility] [address] [id number] [place] [address] Jul, [facility] [address] [id number] [place] [address] Jul, [facility] [address] [id number] [place] [address] Jul, [facility] [place] [facility] [address] [id number] [place] [address] Jun, [facility] [place] [facility] [address] [id number] [place] [address] Jun, [facility] [place] [facility] [address] [id number] [place] [address] Jun, [facility] [place] [facility] [address] [id number] [place] [address] Jun, [facility] [place] [facility] [address] [id number] [place] [address] Jun, [facility] [place] [facility] [address] [id number] [place] [address] Jun, [facility] [place] [facility] [address] [id number] [place] [address] May, [facility] [place] [facility] [address] [id number] [place] [address] May, [facility] [place] [facility] [address] [id number] [place] [address] May, [facility] [place] [facility] [address] [id number] [place] [address] May, [facility] [place] [facility] [address] [id number] [place] [address] May, [facility] [place] [facility] [address] [id number] [place] [address] May, [facility] [place] [facility] [address] [id number] [place] [address] May, [facility] [place] [facility] [address] [id number] [place] [address] Apr, [facility] [place] [facility] [address] [id number] [place] [address] Apr, [facility] [place] [facility] [address] [id number] [place] [address] Apr, [facility] [place] [facility] [address] [id number] [place] [address] Apr, [facility] [place] [facility] [address] [id number] [place] [address] Apr, [facility] [place] [facility] [address] [id number] [place] [address] Apr, [facility] [place] [facility] [address] [id number] [place] [address] Mar, [facility] [place] [facility] [address] [id number] [place] [address] 31 Mar, 2013 [facility] [address] [id number] [place] [address] Mar, [facility] [place] [facility] [address] [id number] [place] [address] 23 Mar, 2013 [facility] [address] [id number] [place] [address] Mar, [facility] [place] [facility] [address] [id number] [place] [address] 19 Mar, 2013 [facility] [address] [id number] [place] [address] 16 Mar, 2013 [facility] [address] [id number] [place] [address] 16 Mar, 2013 [facility] [address] [id number] [place] [address] Mar, [facility] [address] [id number] [place] [address] Mar, [facility] [place] [facility] [address] [id number] [place] [address] Feb, [facility] [address] [id number] [place] [address] 25 Feb, 2013 [facility] [place] [facility] [address] [id number] [place] [address] 25 Feb, 2013 [facility] [place] [facility] [address] [id number] [place] [address] 25 Feb, 2013 [facility] [place] [facility] [address] [id number] [place] [address] 14 Feb, 2013 [facility] [place] [facility] [address] [id number] [place] [address] 14 Feb, 2013 [facility] [place] [facility] [address] [id number] [place] [address] Feb, [facility] [place] [facility] [address] [id number] [place] [address] Feb, [facility] [place] [facility] [address] [id number] [place] [address] Feb, [facility] [place] [facility] [address] [id number] [place] [address] Feb, [facility] [place] [facility] [address] [id number] [place] [address] Jan, [facility] [place] [facility] [address] [id number] [place] [address] Jan, [facility] [place] [facility] [address] [id number] [place] [address] Jan, [facility] [place] [facility] [address] [id number] [place] [address] Jan, [facility] [place] [facility] [address] [id number] [place] [address] Jan, [facility] [place] [facility] [address] [id number] [place] [address] Jan, [facility] [place] [facility] [address] [id number] [place] [address] Jan, [facility] [place] [facility] [address] [id number] [place] [address] Jan, [facility] [place] [facility] [address] [id number] [address] Jan, [facility] [place] [facility] [address] [id number] [place] [address] Dec, [facility] [place] [facility] [address] [id number] [place] [address] Dec, [facility] [place] [facility] [address] [id number] [place] [address] Dec, [facility] [place] [facility] [address] [id number] [place] [address] Dec, [facility] [place] [facility] [address] [id number] [place] [address] Nov, [facility] [place] [facility] [address] [id number] [place] [address] Nov, [facility] [place] [facility] [address] [id number] [place] [address] Nov, [facility] [place] [facility] [address] [id number] [place] [address] Nov, [facility] [place] [facility] [address] [id number] [place] [address] Nov, [facility] [place] [facility] [address] [id number] [place] [address] Nov, [facility] [place] [facility] [address] [id number] [place] [address] Oct, [facility] [place] [facility] [address] [id number] [place] [address] Oct, [facility] [place] [facility] [address] [id number] [place] [address] Oct, [facility] [place] [facility] [address] [id number] [place] [address] Oct, [facility] [place] [facility] [address] [id number] [place] [address] Sep, [facility] [place] [facility] [address] [id number] [place] [address] Sep, [facility] [place] [facility] [address] [id number] [place] [address] Sep, [facility] [place] [facility] [address] [id number] [place] [address] Sep, [facility] [place] [facility] [address] [id number] [place] [address] Sep, [facility] [place] [facility] [address] [id number] [place] [address] 17 Aug, 2012 [facility] [address] [id number] [place] [address] August, [facility] [address] [id number] [place] [address] Jul, [facility] [address] [id number] [place] [address] Jul, [facility] [address] [id number] [place] [address] Jul, [facility] [address] [id number] [place] [address] Jul, [facility] [address] [id number] [place] [address] Jul, [facility] [address] [id number] [place] [address] Jun, [facility] [address] [id number] [place] [address] Jun, [facility] [address] [id number] [place] [address] Jun, [facility] [address] [id number] [place] [address] Jun, [facility] [address] [id number] [place] [address] Jun, [facility] [address] [id number] [place] [address] May, [facility] [address] [id number] [place] [address] May, [facility] [address] [id number] [place] [address] May, [facility] [address] [id number] [place] [address] May, [facility] [address] [id number] [place] [address] May, [facility] [address] [id number] [place] [address] May, [facility] [address] [id number] [place] [address] May, [facility] [address] [id number] [place] [address] May, [facility] [address] [id number] [place] [address] May, [facility] [address] [id number] [place] [address] Apr, [facility] [address] [id number] [place] [address] Apr, [facility] [address] [id number] [place] [address] Apr, [facility] [address] [id number] [place] [address] Apr, [facility] [address] [id number] [place] [address] Apr, [facility] [address] [id number] [place] [address] Mar, [facility] [address] [id number] [place] [address] Mar, [facility] [place] [facility] [address] [id number] [place] [address] Mar, [facility] [place] [facility] [address] [id number] [place] [address] Mar, [facility] [place] [facility] [address] [id number] [place] [address] Mar, [facility] [place] [facility] [address] [id number] [place] [address] 19 Mar, 2012 [facility] [place] [facility] [address] [id number] [place] [address] 17 Mar, 2012 [facility] [place] [facility] [address] [id number] [place] [address] 17 Mar, 2012 [facility] [place] [facility] [address] [id number] [place] [address] Mar, [facility] [place] [facility] [address] [id number] [place] [address] Mar, [facility] [place] [facility] [address] [id number] [place] [address] 30 Feb, 2012 [facility] [place] [facility] [address] [id number] [place] [address] 30 Feb, 2012 [facility] [place] [facility] [address] [id number] [place] [address] 29 Feb, 2012 [facility] [place] [facility] [address] [id number] [place] [address] 29 Feb, 2012 [facility] [place] [facility] [address] [id number] [place] [address] 23 Feb, 2012 [facility] [place] [facility] [address] [id number] [place] [address] 23 Feb, 2012 [facility] [place] [facility] [address] [id number] [place] [address] Feb, [facility] [place] [facility] [address] [id number] [place] [address] 20 Feb, 2012 [facility] [place] [facility] [address] [id number] [place] [address] 16 Feb, 2012 [facility] [place] [facility] [address] [id number] [place] [address] 16 Feb, 2012 [facility] [place] [facility] [address] [id number] [place] [address] Feb, [facility] [place] [facility] [address] [id number] [place] [address] 13 Feb, 2012 [facility] [place] [facility] [address] [id number] [place] [address] Feb, [facility] [place] [facility] [address] [id number] [place] [address] Feb, [facility] [place] [facility] [address] [id number] [place] [address] Feb, [facility] [place] [facility] [address] [id number] [place] [address] Feb, [facility] [place] [facility] [address] [id number] [place] [address] Feb, [facility] [place] [facility] [address] [id number] [place] [address] Feb, [facility] [place] [facility] [address] [id number] [address] Jan, [facility] [place] [facility] [address] [id number] [place] [address] Jan, [facility] [place] [facility] [address] [id number] [place] [address] Jan, [facility] [place] [facility] [address] [id number] [place] [address] Jan, [facility] [place] [facility] [address] [id number] [place] [address] Jan, [facility] [place] [facility] [address] [id number] [place] [address] Jan, [facility] [place] [facility] [address] [id number] [place] [address] Jan, [facility] [place] [facility] [address] [id number] [place] [address] Jan, [facility] [place] [facility] [address] [id number] [place] [address] Jan, [facility] [place] [facility] [address] [id number] [place] [address] Jan, [facility] [place] [facility] [address] [id number] [place] [address] Dec, [facility] [place] [facility] [address] [id number] [place] [address] Dec, [facility] [place] [facility] [address] [id number] [place] [address] Dec, [facility] [place] [facility] [address] [id number] [place] [address] Dec, [facility] [place] [facility] [address] [id number] [place] [address] Nov, [facility] [place] [facility] [address] [id number] [place] [address] Nov, [facility] [place] [facility] [address] [id number] [place] [address] Nov, [facility] [place] [facility] [address] [id number] [place] [address] Nov, [facility] [place] [facility] [address] [id number] [place] [address] Nov, [facility] [place] [facility] [address] [id number] [place] [address] Nov, [facility] [place] [facility] [address] [id number] [place] [address] Oct, [facility] [place] [facility] [address] [id number] [place] [address] Oct, [facility] [place] [facility] [address] [id number] [place] [address] Oct, [facility] [place] [facility] [address] [id number] [place] [address] Oct, [facility] [place] [facility] [address] [id number] [place] [address] Oct, [facility] [place] [facility] [address] [id number] [place] [address] Sep, [facility] [place] [facility] [address] [id number] [place] [address] Sep, [facility] [place] [facility] [address] [id number] [place] [address] Sep, [facility] [place] [facility] [address] [id number] [place] [address] Sep, [facility] [place] [facility] [address] [id number] [place] [address] Sep, [facility] [place] [facility] [address] [id number] [place] [address] August, [facility] [place] [facility] [address] [id number] [place] [address] August, [facility] [place] [facility] [address] [id number] [place] [address] August, [facility] [place] [facility] [address] [id number] [place] [address] August, [facility] [place] [facility] [address] [id number] [place] [address] Jul, [facility] [place] [facility] [address] [id number] [place] [address] Jul, [facility] [place] [facility] [address] [id number] [place] [address] Jul, [facility] [place] [facility] [address] [id number] [place] [address] Jul, [facility] [place] [facility] [address] [id number] [place] [address] Jul, [facility] [place] [facility] [address] [id number] [place] [address] Jul, [facility] [place] [facility] [address] [id number] [place] [address] Jul, [facility] [place] [facility] [address] [id number] [place] [address] Jul, [facility] [place] [facility] [address] [id number] [place] [address] Jul, [facility] [place] [facility] [address] [id number] [place] [address] Jul, [facility] [place] [facility] [address] [id number] [place] [address] Jul, [facility] [place] [facility] [address] [id number] [place] [address] Jul, [facility] [place] [facility] [address] [id number] [place] [address] Jul, [facility] [place] [facility] [address] [id number] [place] [address] Jul, [facility] [place] [facility] [address] [id number] [place] [address] Jun, [facility] [place] [facility] [address] [id number] [place] [address] Jun, [facility] [place] [facility] [address] [id number] [place] [address] Jun, [facility] [place] [facility] [address] [id number] [place] [address] Jun, [facility] [place] [facility] [address] [id number] [place] [address] May, [facility] [place] [facility] [address] [id number] [place] [address] May, [facility] [place] [facility] [address] [id number] [place] [address] May, [facility] [place] [facility] [address] [id number] [place] [address] 26 Apr, 2011 [facility] [address] [id number] [place] [address] 18 Apr, 2011 [facility] [address] [id number] [place] [address] 13 Apr, 2011 [facility] [address] [id number] [place] [address] 11 Apr, 2011 [facility] [address] [id number] [place] [address] 09 Apr, 2011 [facility] [address] [id number] [place] [address] Mar, [facility] [address] [id number] [place] [address] Mar, [facility] [address] [id number] [place] [address] Mar, [facility] [address] [id number] [place] [address] Mar, [facility] [address] [id number] [place] [address] Mar, [facility] [address] [id number] [place] [address] Mar, [facility] [address] [id number] [place] [address] Mar, [facility] [address] [id number] [place] [address] Feb, [facility] [place] [facility] [address] [id number] [place] [address] Feb, [facility] [address] [id number] [place] [address] Feb, [facility] [address] [id number] [place] [address] Feb, [facility] [place] [facility] [address] [id number] [place] [address] 16 Feb, 2011 [facility] [place] [facility] [address] [id number] [place] [address] 14 Feb, 2011 [facility] [place] [facility] [address] [id number] [place] [address] 10 Feb, 2011 [facility] [place] [facility] [address] [id number] [place] [address] 31 Jan, 2011 [facility] [place] [facility] [address] [id number] [place] [address] 31 Jan, 2011 [facility] [place] [facility] [address] [id number] [place] [address] 31 Jan, 2011 [facility] [place] [facility] [address] [id number] [place] [address] 18 Jan, 2011 [facility] [place] [facility] [address] [id number] [place] [address] 17 Jan, 2011 [facility] [place] [facility] [address] [id number] [place] [address] 17 Jan, 2011 [facility] [place] [facility] [address] [id number] [place] [address] 17 Jun, 2010 [facility] [place] [facility] [address] [id number] [place] [address] 30 Mar, 2010 [facility] [place] [facility] [address] [id number] [place] [address] 20 Mar, 2010 [facility] [place] [facility] [address] [id number] [place] [address] 14 Mar, 2010 [facility] [place] [facility] [address] [id number] [place] [address] 14 Mar, 2010 [facility] [place] [facility] [address] [id number] [place] [address] 13 Mar, 2010 [facility] [place] [facility] [address] [id number] [place] [address] 07 Mar, 2010 [facility] [place] [facility] [address] [id number] [place] [address] 02 Mar, 2010 [facility] [place] [facility] [address] [id number] [place] [address] Mar, [facility] [place] [facility] [address] [id number] [place] [address] 30 Feb, 2010 [facility] [place] [facility] [address] [id number] [place] [address] 29 Feb, 2010 [facility] [place] [facility] [address] [id number] [place] [address], [place] [address] Feb, [facility] [place] [facility] [address] [id number] [place] [address] Feb, [facility] [place] [facility] [address] [facility] [id number] [place] [address] 16 Feb, 2010 [facility] [place] [facility] [address] [id number] [place] [address] Feb, [facility] [place] [facility] [address] [id number] [place] [address] Feb, [facility] [place] [facility] [address] [facility] [id number] [place] [address] Feb, [facility] [place] [facility] [address] [id number] [place] [address] 28 Jan, 2010 [facility] [place] [facility] [address] [id number] [place] [address] Jan, [facility] [place] [facility] [address] [id number] [place] [address] Jan, [facility] [place] [facility] [address] [id number] [place] [address] 18 Jan, 2010 [facility] [place] [facility] [address] [facility] [id number] [place] [address] Mar, [facility] [place] [facility] [id number] [place] [address] 22 Mar, 2009 [facility] [id number] [place] [address] Mar, [facility] [id number] [address] Mar, [facility] [id number] [address] 14 Mar, 2009 [facility] [id number] [place] [address] Mar, [facility] [id number] [address] Feb, [facility] [id number] [place] [address] Feb, [facility] [id number] [address] Jan, [facility] [id number] [address] Sep, [facility] [address] [id number] [address] May, IMMUNIZATIONS No Known Immunizations SOCIAL HISTORY Never Assessed REASON FOR VISIT Medication question PLAN OF CARE VITAL SIGNS MEDICATIONS Unknown [...] Hospitalization History [facility] in [place]- Spontaneous Pneumothorax Hospitalization History [facility]- Colon resection Hospitalization History via [facility], [place] - diarrhea/ couldnt urinate nov 2017
--- OUTSIDE RECORDS SUMMARY | 2018-10-15 01:21 | XMS REPORT ---
Author Author AGUSTÍN PRATER Organization [facility] Address [address] [place] [address] Care Team Providers Care Education Assistant Name Role Phone AGUSTÍN PRATER Unavailable PROBLEMS Type Condition ICD9-CM Code ZQT96-QE Code Onset Dates Condition Status SNOMED Code Problem Anxiety F41.9 Active 43883329 Problem Chronic pain G89.29 Active 72898936 Problem Constipation K59.00 Active 70888896 Problem Insomnia G47.00 Active 112342571 Problem HTN (hypertension) I10 Active 82391077 Problem Chronic kidney disease, stage III (moderate) N18.3 Active 203426499 Problem Primary insomnia F51.01 Active 1630267 Problem Thoracic back pain, unspecified back pain laterality, unspecified chronicity M54.6 Active 205884598 Problem Hyperlipidemia E78.5 Active 63627683 Problem Environmental allergies Z91.09 Active 309485891 Problem Vitamin D deficiency E55.9 Active 90833349 ALLERGIES No Information ENCOUNTERS Encounter Location Date Diagnosis [place] [id number] [place] [address] Dec, Diarrhea of presumed infectious origin R19.7 [place] [id number] [place] [address] Dec, Diarrhea of presumed infectious origin R19.7 [place] [id number] [place] [address] 18 Dec, 2017 Thoracic back pain, unspecified back pain laterality, unspecified chronicity M54.6 [place] [id number] [place] [address] Dec, [place] [id number] [place] [address] Dec, Anxiety F41.9 and Thoracic back pain, unspecified back pain laterality, unspecified chronicity M54.6 [place] [address], [place] [address] Dec, Diarrhea of presumed infectious origin R19.7 [place] [address], [place] [address] Dec, [place] [address] [place] [address] Dec, Anxiety F41.9 and Thoracic back pain, unspecified back pain laterality, unspecified chronicity M54.6 [place] [id number] [place] [address] Dec, Anxiety F41.9 and Thoracic back pain, unspecified back pain laterality, unspecified chronicity M54.6 [facility] [employer] [address] [place] [id number] Dec, Diarrhea of presumed infectious origin R19.7 ; Anxiety F41.9 ; Thoracic back pain, unspecified back pain laterality, unspecified chronicity M54.6 and HTN (hypertension) I10 [id number] [place] [address] Dec, Anxiety F41.9 [facility] [facility] [address] [place] [id number] Dec, Anxiety F41.9 ; Diarrhea of presumed infectious origin R19.7 ; Generalized abdominal pain R10.84 and Localized edema R60.0 [place] [id number] [place] [address] Nov, [facility] [employer] [address] [place] [id number] Nov, Anxiety F41.9 ; Urinary retention R33.9 ; Diarrhea of presumed infectious origin R19.7 ; Weakness R53.1 ; Acute kidney failure, unspecified N17.9 ; Chronic kidney disease, stage III (moderate) N18.3 and Thoracic back pain, unspecified back pain laterality, unspecified chronicity M54.6 [place] [id number] [place] [address] Oct, Thoracic back pain, unspecified back pain laterality, unspecified chronicity M54.6 and Anxiety F41.9 [place] [id number] [place] [address] Sep, Thoracic back pain, unspecified back pain laterality, unspecified chronicity M54.6 and Anxiety F41.9 [place] [address] [address] Sep, Thoracic back pain, unspecified back pain laterality, unspecified chronicity M54.6 ; Anxiety F41.9 and Encounter for medication monitoring Z51.81 [place] [address] [address] August, [place] [address] [address] August, Thoracic back pain, unspecified back pain laterality, unspecified chronicity M54.6 and Anxiety F41.9 [place] [id number] [place] [address] August, Hyperlipidemia E78.5 and HTN (hypertension) I10 [place] [id number] [place] [address] August, [place] [id number] [place] [address] August, Medicare welcome exam Z00.00 ; Chronic kidney failure N18.9 ; Anxiety F41.9 ; Chronic pain G89.29 ; Insomnia G47.00 ; Hyperlipidemia E78.5 ; HTN (hypertension) I10 and Thoracic back pain, unspecified back pain laterality, unspecified chronicity M54.6 [place] [id number] [place] [address] Jul, [place] [id number] [place] [address] Jul, [place] [address] [place] [address] [address] Jul, [place] [id number] [place] [address] Jul, Anxiety F41.9 [place] [id number] [place] [address] Jul, Thoracic back pain, unspecified back pain laterality, unspecified chronicity M54.6 and Anxiety F41.9 [place] [id number] [place] [address] Jun, Thoracic back pain, unspecified back pain laterality, unspecified chronicity M54.6 and Anxiety F41.9 [place] [id number] [place] [address] 12 May, 2017 Thoracic back pain, unspecified back pain laterality, unspecified chronicity M54.6 and Anxiety F41.9 [place] [id number] [place] [address] Apr, Thoracic back pain, unspecified back pain laterality, unspecified chronicity M54.6 and Anxiety F41.9 [place] [id number] [place] [address] Mar, [place] [id number] [place] [address] Mar, Thoracic back pain, unspecified back pain laterality, unspecified chronicity M54.6 and Anxiety F41.9 [place] [id number] [place] [address] 14 Mar, 2017 Thoracic back pain, unspecified back pain laterality, unspecified chronicity M54.6 ; HTN (hypertension) I10 ; Hyperlipidemia E78.5 and Anxiety F41.9 [place] [address] [place] [address] Feb, Thoracic back pain, unspecified back pain laterality, unspecified chronicity M54.6 and Anxiety F41.9 [place] [id number] [place] [address] Nov, [facility] [id number] [place] [address] Oct, [facility] [id number] [place] [address] Oct, Thoracic back pain, unspecified back pain laterality, unspecified chronicity M54.6 [facility] [id number] [place] [address] Oct, HTN (hypertension) I10 ; Constipation K59.00 ; Hyperlipidemia E78.5 ; Thoracic back pain, unspecified back pain laterality, unspecified chronicity M54.6 ; Chronic pain G89.29 ; Anxiety F41.9 ; Chronic kidney failure N18.9 ; Environmental allergies Z91.09 ; Vitamin D deficiency E55.9 and Primary insomnia F51.01 [facility] [id number] [place] [address] Sep, Anxiety F41.9 [facility] [id number] [place] [address] Sep, [facility] [id number] [place] [address] August, Anxiety F41.9 [facility] [id number] [place] [address] August, [facility] [id number] [place] [address] Jul, Anxiety F41.9 [facility] [id number] [place] [address] Jul, [facility] [id number] [place] [address] Jun, Anxiety F41.9 [facility] [id number] [place] [address] Jun, [place] [address], [place] [address] May, [facility] [id number] [place] [address] May, [facility] [address], [place] [address] May, [facility] [id number] [place] [address] Apr, [facility] [id number] [place] [address] Apr, [facility] [id number] [place] [address] Apr, Anxiety F41.9 [facility] [id number] [place] [address] Apr, Anxiety F41.9 [facility] [id number] [place] [address] Apr, [facility] [address] [place] [address] Mar, HTN (hypertension) I10 ; Tremor R25.1 ; Hypercholesterolemia E78.0 ; Constipation K59.00 ; Chronic pain G89.29 ; Hyperlipidemia E78.5 ; Insomnia G47.00 ; Anxiety F41.9 and Thoracic back pain, unspecified back pain laterality, unspecified chronicity M54.6 [facility] [address], [place] [address] Mar, Tremor R25.1 ; HTN (hypertension) I10 ; Hypercholesterolemia E78.0 ; Constipation K59.00 ; Chronic pain G89.29 ; Hyperlipidemia E78.5 ; Insomnia G47.00 ; Anxiety F41.9 and Thoracic back pain, unspecified back pain laterality, unspecified chronicity M54.6 [facility] [address], [place] [address] Mar, [facility] [address] [facility] [id number] [place] [address] Mar, [facility] [address] [facility] [id number] [place] [address] Feb, [facility] [address] [facility] [id number] [place] [address] Jan, [facility] [address] [facility] [id number] [place] [address], [place] [address] Jan, [facility] [address] [facility] [id number] [place] [address] Dec, [facility] [address] [facility] [id number] [place] [address], [place] [address] Nov, [facility] [address] [place] [address] Nov, [facility] [address] [place] [address] Oct, Anxiety F41.9 [facility] [address] [facility] [id number] [place] [address] Oct, Chronic pain G89.29 [facility] [address] [place] [address] Sep, [facility] [address], [place] [address] Sep, [facility] [address] [facility] [id number], [place] [address] Sep, [facility] [address] [facility] [id number] [place] [address] Sep, [facility] [address] [facility] [id number], [place] [address] 16 Sep, 2015 Chronic pain syndrome G89.4 [facility] [address], [place] [address] 15 Sep, 2015 HTN (hypertension) I10 ; Chronic pain G89.29 ; Hypercholesterolemia E78.0 ; Chronic kidney failure N18.9 ; Constipation, unspecified constipation type K59.00 ; Anxiety F41.9 and Thoracic back pain, unspecified back pain laterality, unspecified chronicity M54.6 [facility] [id number] [place] [address] August, Chronic pain syndrome G89.4 [facility] [address] [address] August, Chronic pain syndrome G89.4 [facility] [address] [address] Jul, Anxiety disorder, unspecified F41.9 and Chronic pain syndrome G89.4 [facility] [id number] [place] [address] Jul, Insomnia, unspecified G47.00 and Chronic pain syndrome G89.4 [facility] [id number] [place] [address] Jul, Allergic rhinitis J30.9 [facility] [id number] [place] [address] Jul, Constipation, unspecified K59.00 [facility] [id number] [place] [address] Jul, [facility] [id number] [place] [address] Jun, [facility] [id number] [place] [address] Jun, [place] [address] [address] Jun, [facility] [id number] [place] [address] Jun, [facility] [id number] [place] [address] Jun, [facility] [address], [place] [address] Jun, [facility] [id number] [place] [address] May, [facility] [id number] [place] [address] May, [facility] [id number] [place] [address] May, Anxiety F41.9 ; Insomnia G47.00 ; Hyperlipidemia E78.5 ; Chronic pain G89.29 ; HTN (hypertension) I10 ; Environmental allergies V15.09 and Constipation 564.00 [facility] [id number] [place] [address] Apr, [facility] [id number] [place] [address] Apr, [facility] [id number] [place] [address] Apr, [facility] [id number] [place] [address] Mar, [facility] [address], [place] [address] Mar, [facility] [id number] [place] [address] Mar, [facility] [address] [place] [address] Feb, [facility] [id number] [place] [address] Feb, [facility] [id number] [place] [address] Feb, [facility] [address] [place] [address] Jan, HTN (hypertension) I10 ; Constipation K59.00 ; Chronic pain G89.29 ; Hyperlipidemia E78.5 ; Hypercholesterolemia E78.0 ; Insomnia G47.00 and Anxiety F41.9 [place] [id number] [place] [address] Jan, [place] [id number] [place] [address] Dec, [address] [address] Nov, [place] [id number] [place] [address] Oct, Chronic kidney disease, unspecified 585.9 ; Chronic pain syndrome 338.4 ; Hyperlipidemia 272.4 and Essential hypertension 401.9 [place] [id number] [place] [address] Oct, Chronic kidney disease 585.9 [place] [id number] [place] [address] Oct, [place] [id number] [place] [address] Oct, Chronic kidney disease, unspecified 585.9 ; Hypercalcemia 275.42 ; Hyperlipidemia 272.4 ; Essential hypertension 401.9 ; Chronic pain syndrome 338.4 ; Insomnia 780.52 ; Constipation 564.00 ; Environmental allergies V15.09 and Anxiety 300.00 [place] [id number] [place] [address] Oct, Chronic kidney disease 585.9 [place] [id number] [place] [address] Oct, [place] [id number] [place] [address] Oct, Chronic kidney disease 585.9 and Hyperlipidemia 272.4 [place] [id number] [place] [address] Oct, [facility] [address] [id number] [place] [address] 10 Oct, 2014 [facility] [address] [id number] [place] [address] 18 Sep, 2014 [facility] [address] [id number] [place] [address] 15 Sep, 2014 [facility] [address] [id number] [place] [address] 15 Sep, 2014 Chronic kidney disease 585.9 and Hyperlipidemia 272.4 [facility] [address] [id number] [place] [address] Sep, [facility] [address] [id number] [place] [address] August, [facility] [address] [facility] [id number] [place] [address] August, [facility] [address] [id number] [place] [address] Jul, [facility] [address] [id number] [place] [address] Jul, [facility] [address] [facility] [id number] [place] [address] Jun, [facility] [place] [facility] [address] [id number] [place] [address] Jun, [facility] [place] [facility] [address] [id number] [place] [address] 16 Jun, 2014 [facility] [place] [facility] [address] [id number] [place] [address] 16 Jun, 2014 [facility] [place] [facility] [address] [id number] [place] [address] 09 Jun, 2014 [facility] [place] [facility] [address] [facility] [id number] [place] [address] Jun, [facility] [place] [facility] [address] [id number] [place] [address] Jun, [facility] [place] [facility] [address] [id number] [place] [address] Jun, [facility] [place] [facility] [address] [id number] [place] [address] May, [facility] [place] [facility] [address] [id number] [place] [address] May, [facility] [place] [facility] [address] [id number] [place] [address] May, [facility] [place] [facility] [address] [id number] [place] [address] May, [facility] [place] [facility] [address] [id number] [place] [address] Apr, [facility] [place] [facility] [address] [id number] [place] [address] Apr, [facility] [place] [facility] [address] [id number] [place] [address] Apr, [facility] [place] [facility] [address] [id number] [place] [address] Apr, [facility] [place] [facility] [address] [id number] [place] [address] Apr, [facility] [place] [facility] [address] [id number] [place] [address] Apr, [facility] [place] [facility] [address] [id number] [place] [address] Apr, [facility] [place] [facility] [address] [id number] [place] [address] Apr, [facility] [place] [facility] [address] [id number] [place] [address] Apr, [facility] [place] [facility] [address] [id number], [place] [address] Apr, [facility] [place] [facility] [address] [id number] [place] [address] Apr, [facility] [place] [facility] [address] [id number] [place] [address] Mar, [facility] [place] [facility] [address] [id number] [place] [address] Mar, [facility] [place] [facility] [address] [id number] [place] [address] Feb, [facility] [place] [facility] [address] [id number] [place] [address] Feb, [facility] [place] [facility] [address] [id number] [place] [address] Feb, [facility] [place] [facility] [address] [id number] [place] [address] Feb, [facility] [place] [facility] [address] [id number] [place] [address] Feb, [facility] [place] [facility] [address] [id number] [place] [address] Feb, [facility] [place] [facility] [address] [id number] [place] [address] Feb, [facility] [place] [facility] [address] [id number], [place] [address] Feb, [facility] [place] [facility] [address] [id number], [place] [address] Feb, [facility] [place] [facility] [address] [id number], [place] [address] Feb, [facility] [place] [facility] [address] [id number] [place] [address] Jan, [facility] [place] [facility] [address] [id number] [place] [address] Jan, [facility] [place] [facility] [address] [id number] [place] [address] 27 Jan, 2013 [facility] [place] [facility] [address] [id number] [place] [address] Jan, [facility] [place] [facility] [address] [id number] [place] [address] Jan, [facility] [place] [facility] [address] [id number] [place] [address] 24 Jan, 2014 [facility] [place] [facility] [address] [id number] [place] [address] Jan, 2013 [facility] [place] [facility] [address] [id number] [place] [address] 17 Jan, 2014 [facility] [place] [facility] [address] [id number] [place] [address] 16 Jan, 2014 [facility] [place] [facility] [address] [id number] [place] [address] Jan, 2013 [facility] [place] [facility] [address] [id number] [place] [address] 06 Jan, 2014 [facility] [place] [facility] [address] [id number] [place] [address] 26 Dec, 2013 [facility] [place] [facility] [address] [id number] [place] [address] 26 Dec, 2013 [facility] [place] [facility] [address] [id number] [place] [address] 19 Dec, 2013 [facility] [place] [facility] [address] [id number] [place] [address] 19 Dec, 2013 [facility] [place] [facility] [address] [id number] [place] [address] 18 Dec, 2013 [facility] [place] [facility] [address] [id number] [place] [address] 18 Dec, 2013 [facility] [place] [facility] [address] [id number] [place] [address] Dec, [facility] [place] [facility] [address] [id number] [place] [address] Dec, [facility] [place] [facility] [address] [id number] [place] [address] Nov, [facility] [place] [facility] [address] [id number] [place] [address] Nov, [facility] [place] [facility] [address] [id number] [place] [address] Nov, [facility] [place] [facility] [address] [id number] [place] [address] Nov, [facility] [place] [facility] [address] [id number] [place] [address] Nov, [facility] [place] [facility] [address] [id number] [place] [address] Nov, [facility] [place] [facility] [address] [id number] [place] [address] Nov, [facility] [place] [facility] [address] [id number] [place] [address] Nov, [facility] [place] [facility] [address] [id number] [place] [address] Oct, [facility] [place] [facility] [address] [id number] [place] [address] Oct, [facility] [place] [facility] [address] [id number] [place] [address] Oct, [facility] [place] [facility] [address] [id number] [place] [address] Oct, [facility] [place] [facility] [address] [id number] [place] [address] Sep, [facility] [place] [facility] [address] [id number] [place] [address] Sep, [facility] [place] [facility] [address] [id number] [place] [address] Sep, [facility] [place] [facility] [address] [id number] [place] [address] Sep, [facility] [place] [facility] [address] [id number] [place] [address] Sep, [facility] [place] [facility] [address] [id number] [place] [address] Sep, [facility] [place] [facility] [address] [id number] [place] [address] Sep, [facility] [place] [facility] [address] [id number] [place] [address] Sep, [facility] [place] [facility] [address] [id number] [place] [address] August, [facility] [place] [facility] [address] [id number] [place] [address] August, [facility] [place] [facility] [address] [id number] [place] [address] August, [facility] [place] [facility] [address] [id number] [place] [address] August, [facility] [place] [facility] [address] [id number] [place] [address] August, [facility] [place] [facility] [address] [id number] [place] [address] August, [facility] [place] [facility] [address] [id number] [place] [address] August, [facility] [place] [facility] [address] [id number] [place] [address] August, [facility] [place] [facility] [address] [id number] [place] [address] August, [facility] [place] [facility] [address] [id number] [place] [address] August, [facility] [place] [facility] [address] [id number] [place] [address] Jul, [facility] [place] [facility] [address] [id number] [place] [address] Jul, [facility] [place] [facility] [address] [id number] [place] [address] Jul, [facility] [place] [facility] [address] [id number] [place] [address] Jul, [facility] [place] [facility] [address] [id number] [place] [address] Jul, [facility] [place] [facility] [address] [id number] [place] [address] Jul, [facility] [place] [facility] [address] [id number] [place] [address] Jul, [facility] [place] [facility] [address] [id number] [place] [address] Jul, [facility] [place] [facility] [address] [id number] [place] [address] Jun, [facility] [place] [facility] [address] [id number] [place] [address] Jun, [facility] [place] [facility] [address] [id number] [place] [address] Jun, [facility] [place] [facility] [address] [id number] [place] [address] Jun, [facility] [place] [facility] [address] [id number] [place] [address] Jun, [facility] [place] [facility] [address] [id number] [place] [address] Jun, [facility] [place] [facility] [address] [id number] [place] [address] May, [facility] [place] [facility] [address] [id number] [place] [address] May, [facility] [address] [id number] [place] [address] May, [facility] [place] [facility] [address] [id number] [place] [address] May, [facility] [place] [facility] [address] [id number] [place] [address] May, [facility] [place] [facility] [address] [id number] [place] [address] May, [facility] [place] [facility] [address] [id number] [place] [address] May, [facility] [place] [facility] [address] [id number] [place] [address] Apr, [facility] [address] [id number] [place] [address] Apr, [facility] [place] [facility] [address] [id number] [place] [address] Apr, [facility] [address] [id number] [place] [address] Apr, [facility] [place] [facility] [address] [id number] [place] [address] Apr, [facility] [address] [id number] [place] [address] Apr, [facility] [place] [facility] [address] [id number] [place] [address] Mar, [facility] [place] [facility] [address] [id number] [place] [address] Mar, [facility] [place] [facility] [address] [id number] [place] [address] Mar, [facility] [place] [facility] [address] [id number] [place] [address] Mar, [facility] [place] [facility] [address] [id number] [place] [address] 19 Mar, 2013 [facility] [place] [facility] [address] [id number] [place] [address] 19 Mar, 2013 [facility] [place] [facility] [address] [id number] [place] [address] 16 Mar, 2013 [facility] [place] [facility] [address] [id number] [place] [address] 16 Mar, 2013 [facility] [place] [facility] [address] [id number] [place] [address] 12 Mar, 2013 [facility] [place] [facility] [address] [id number] [place] [address] Mar, [facility] [place] [facility] [address] [id number] [place] [address] Feb, [facility] [place] [facility] [address] [id number] [place] [address] 25 Feb, 2013 [facility] [place] [facility] [address] [id number] [place] [address] Feb, [facility] [place] [facility] [address] [id number] [place] [address] 25 Feb, 2013 [facility] [place] [facility] [address] [id number] [place] [address] 14 Feb, 2013 [facility] [place] [facility] [address] [id number] [place] [address] 14 Feb, 2013 [facility] [place] [facility] [address] [id number] [place] [address] 11 Feb, 2013 [facility] [place] [facility] [address] [id number] [place] [address] 11 Feb, 2013 [facility] [place] [facility] [address] [id number] [place] [address] 08 Feb, 2013 [facility] [place] [facility] [address] [id number] [place] [address] Feb, [facility] [place] [facility] [address] [id number] [place] [address] Jan, [facility] [place] [facility] [address] [id number] [place] [address] Jan, [facility] [place] [facility] [address] [id number] [place] [address] Jan, [facility] [place] [facility] [address] [id number] [place] [address] Jan, [facility] [place] [facility] [address] [id number] [place] [address] Jan, [facility] [place] [facility] [address] [id number] [place] [address] Jan, [facility] [place] [facility] [address] [id number] [place] [address] Jan, [facility] [place] [facility] [address] [id number], [place] [address] Jan, [facility] [place] [facility] [address] [id number], [place] [address] Jan, [facility] [place] [facility] [address] [id number], [place] [address] Dec, [facility] [place] [facility] [address] [id number], [place] [address] Dec, [facility] [place] [facility] [address] [id number], [place] [address] 21 Dec, 2012 [facility] [place] [facility] [address] [id number], [place] [address] 13 Dec, 2012 [facility] [place] [facility] [address] [id number], [place] [address] Nov, [facility] [place] [facility] [address] [id number], [place] [address] Nov, [facility] [place] [facility] [address] [id number] [place] [address] Nov, [facility] [address] [id number] [place] [address] Nov, [facility] [place] [facility] [address] [id number] [place] [address] Nov, [facility] [address] [id number] [place] [address] Nov, [facility] [place] [facility] [address] [id number] [place] [address] Oct, [facility] [address] [id number] [place] [address] Oct, [facility] [address] [id number] [place] [address] Oct, [facility] [address] [id number] [place] [address] Oct, [facility] [address] [id number] [place] [address] Sep, [facility] [place] [facility] [address] [id number] [place] [address] Sep, [facility] [address] [id number] [place] [address] Sep, [facility] [place] [facility] [address] [id number] [place] [address] Sep, [facility] [place] [facility] [address] [id number] [place] [address] Sep, [facility] [place] [facility] [address] [id number] [place] [address] August, [facility] [place] [facility] [address] [id number] [place] [address] August, [facility] [place] [facility] [address] [id number] [place] [address] Jul, [facility] [place] [facility] [address] [id number] [place] [address] Jul, [facility] [address] [id number] [place] [address] 15 Jul, 2012 [facility] [address] [id number] [place] [address] Jul, [facility] [address] [id number] [place] [address] Jul, [facility] [address] [id number] [place] [address] Jun, [facility] [address] [id number] [place] [address] Jun, [facility] [address] [id number] [place] [address] Jun, [facility] [address] [id number] [place] [address] Jun, [facility] [address] [id number] [place] [address] Jun, [facility] [address] [id number] [place] [address] May, [facility] [address] [id number] [place] [address] May, [facility] [address] [id number] [place] [address] May, [facility] [address] [id number] [place] [address] May, [facility] [place] [facility] [address] [id number] [place] [address] 20 May, 2012 [facility] [place] [facility] [address] [id number] [place] [address] 14 May, 2012 [facility] [address] [id number] [place] [address] 13 May, 2012 [facility] [address] [id number] [place] [address] 08 May, 2012 [facility] [address] [id number] [place] [address] 04 May, 2012 [facility] [address] [id number] [place] [address] Apr, [facility] [address] [id number] [place] [address] Apr, [facility] [address] [id number] [place] [address] Apr, [facility] [address] [id number] [place] [address] Apr, [facility] [address] [id number] [place] [address] Apr, [facility] [address] [id number] [place] [address] Mar, [facility] [address] [id number] [place] [address] Mar, [facility] [address] [id number] [place] [address] Mar, [facility] [address] [id number] [place] [address] Mar, [facility] [address] [id number] [place] [address] Mar, [facility] [address] [id number] [place] [address] Mar, [facility] [address] [id number] [place] [address] Mar, [facility] [address] [id number] [place] [address] Mar, [facility] [place] [facility] [address] [id number] [place] [address] 07 Mar, 2012 [facility] [place] [facility] [address] [id number] [place] [address] Mar, [facility] [place] [facility] [address] [id number] [place] [address] 30 Feb, 2012 [facility] [place] [facility] [address] [id number] [place] [address] 30 Feb, 2012 [facility] [place] [facility] [address] [id number] [place] [address] Feb, [facility] [place] [facility] [address] [id number] [place] [address] 29 Feb, 2012 [facility] [place] [facility] [address] [id number] [place] [address] Feb, [facility] [place] [facility] [address] [id number] [place] [address] Feb, [facility] [place] [facility] [address] [id number] [place] [address] Feb, [facility] [place] [facility] [address] [id number] [place] [address] 20 Feb, 2012 [facility] [place] [facility] [address] [id number] [place] [address] 16 Feb, 2012 [facility] [place] [facility] [address] [id number], [place] [address] 16 Feb, 2012 [facility] [place] [facility] [address] [id number] [place] [address] 13 Feb, 2012 [facility] [place] [facility] [address] [id number] [place] [address] 13 Feb, 2012 [facility] [place] [facility] [address] [id number], [place] [address] 12 Feb, 2012 [facility] [place] [facility] [address] [id number], [place] [address] Feb, [facility] [place] [facility] [address] [id number] [place] [address] Feb, [facility] [place] [facility] [address] [id number], [place] [address] Feb, [facility] [place] [facility] [address] [id number] [place] [address] Feb, [facility] [place] [facility] [address] [id number], [place] [address] Feb, [facility] [place] [facility] [address] [id number] [place] [address] Jan, [facility] [place] [facility] [address] [id number] [place] [address] Jan, [facility] [place] [facility] [address] [id number], [place] [address] Jan, [facility] [place] [facility] [address] [id number], [place] [address] Jan, [facility] [place] [facility] [address] [id number], [place] [address] Jan, [facility] [place] [facility] [address] [id number], [place] [address] Jan, [facility] [place] [facility] [address] [id number], [place] [address] Jan, [facility] [place] [facility] [address] [id number], [place] [address] Jan, [facility] [place] [facility] [address] [id number], [place] [address] Jan, [facility] [place] [facility] [address] [facility] [id number], [place] [address] Jan, [facility] [place] [facility] [address] [id number], [place] [address] Dec, [facility] [place] [facility] [address] [id number] [place] [address] 18 Dec, 2011 [facility] [place] [facility] [address] [id number] [place] [address] Dec, [facility] [place] [facility] [address] [id number] [place] [address] Dec, [facility] [place] [facility] [address] [id number] [place] [address] Nov, [facility] [place] [facility] [address] [id number] [place] [address] Nov, [facility] [place] [facility] [address] [id number] [place] [address] Nov, [facility] [place] [facility] [address] [id number] [place] [address] Nov, [facility] [place] [facility] [address] [id number] [place] [address] Nov, [facility] [place] [facility] [address] [id number] [place] [address] Nov, [facility] [place] [facility] [address] [id number] [place] [address] Oct, [facility] [place] [facility] [address] [id number] [place] [address] Oct, [facility] [place] [facility] [address] [id number] [place] [address] Oct, [facility] [place] [facility] [address] [id number] [place] [address] Oct, [facility] [place] [facility] [address] [id number] [place] [address] Oct, [facility] [place] [facility] [address] [id number] [place] [address] Sep, [facility] [place] [facility] [address] [id number] [place] [address] Sep, [facility] [address] [id number] [place] [address] Sep, [facility] [place] [facility] [address] [id number] [place] [address] Sep, [facility] [place] [facility] [address] [id number] [place] [address] Sep, [facility] [place] [facility] [address] [id number] [place] [address] August, [facility] [place] [facility] [address] [id number] [place] [address] August, [facility] [place] [facility] [address] [id number] [place] [address] August, [facility] [place] [facility] [address] [id number] [place] [address] August, [facility] [place] [facility] [address] [id number] [place] [address] Jul, [facility] [place] [facility] [address] [id number] [place] [address] 24 Jul, 2011 [facility] [place] [facility] [address] [id number] [place] [address] Jul, [facility] [place] [facility] [address] [id number] [place] [address] Jul, [facility] [place] [facility] [address] [id number], [place] [address] 18 Jul, 2011 [facility] [place] [facility] [address] [id number] [place] [address] 12 Jul, 2011 [facility] [place] [facility] [address] [id number] [place] [address] 11 Jul, 2011 [facility] [place] [facility] [address] [id number] [place] [address] 10 Jul, 2011 [facility] [place] [facility] [address] [id number] [place] [address] 09 Jul, 2011 [facility] [address] [id number] [place] [address] Jul, [facility] [place] [facility] [address] [id number] [place] [address] 05 Jul, 2011 [facility] [place] [facility] [address] [id number] [place] [address] Jul, [facility] [place] [facility] [address] [id number] [place] [address] Jul, [facility] [place] [facility] [address] [id number] [place] [address] Jul, [facility] [place] [facility] [address] [id number] [place] [address] Jun, [facility] [place] [facility] [address] [id number] [place] [address] Jun, [facility] [place] [facility] [address] [id number] [place] [address] Jun, [facility] [place] [facility] [address] [id number] [place] [address] 16 Jun, 2011 [facility] [place] [facility] [address] [id number] [place] [address] May, [facility] [place] [facility] [address] [id number] [place] [address] 16 May, 2011 [facility] [place] [facility] [address] [id number] [place] [address] May, [facility] [place] [facility] [address] [id number] [place] [address] Apr, [facility] [place] [facility] [address] [id number] [place] [address] 18 Apr, 2011 [facility] [place] [facility] [address] [id number] [place] [address] Apr, [facility] [place] [facility] [address] [id number] [place] [address] 11 Apr, 2011 [facility] [address] [id number] [place] [address] Apr, [facility] [address] [id number] [place] [address] Mar, [facility] [address] [id number] [place] [address] Mar, [facility] [address] [id number] [place] [address] Mar, [facility] [address] [id number] [place] [address] Mar, [facility] [address] [id number] [place] [address] Mar, [facility] [address] [id number] [place] [address] Mar, [facility] [address] [id number] [place] [address] Mar, [facility] [address] [id number] [place] [address] Feb, [facility] [address] [id number] [place] [address] Feb, [facility] [address] [id number] [place] [address] Feb, [facility] [place] [facility] [address] [id number] [place] [address] Feb, [facility] [place] [facility] [address] [id number] [place] [address] 16 Feb, 2011 [facility] [place] [facility] [address] [id number] [place] [address] 14 Feb, 2011 [facility] [place] [facility] [address] [id number] [place] [address] Feb, [facility] [place] [facility] [address] [id number] [place] [address] 31 Jan, 2011 [facility] [place] [facility] [address] [id number] [place] [address] 31 Jan, 2011 [facility] [place] [facility] [address] [id number] [place] [address] 31 Jan, 2011 [facility] [place] [facility] [address] [id number] [place] [address] 18 Jan, 2011 [facility] [place] [facility] [address] [id number] [place] [address] Jan, [facility] [place] [facility] [address] [id number] [place] [address] 17 Jan, 2011 [facility] [place] [facility] [address] [id number] [place] [address] Jun, [facility] [place] [facility] [address] [id number] [place] [address] 30 Mar, 2010 [facility] [place] [facility] [address] [id number] [place] [address] 20 Mar, 2010 [facility] [place] [facility] [address] [id number] [place] [address] 14 Mar, 2010 [facility] [place] [facility] [address] [id number] [place] [address] 14 Mar, 2010 [facility] [place] [facility] [address] [id number] [place] [address] 13 Mar, 2010 [facility] [place] [facility] [address] [id number] [place] [address] 07 Mar, 2010 [facility] [place] [facility] [address] [id number] [place] [address] 02 Mar, 2010 [facility] [place] [facility] [address] [id number] [place] [address] Mar, [facility] [place] [facility] [address] [id number] [place] [address] 30 Feb, 2010 [facility] [address] [id number] [place] [address] 29 Feb, 2010 [facility] [place] [facility] [address] [id number] [place] [address] 17 Feb, 2010 [facility] [address] [id number] [place] [address] 17 Feb, 2010 [facility] [place] [facility] [address] [id number] [place] [address] 16 Feb, 2010 [facility] [address] [id number] [place] [address] 08 Feb, 2010 [facility] [place] [facility] [address] [facility] [id number] [place] [address] Feb, [facility] [place] [facility] [address] [id number] [place] [address] Feb, [facility] [address] [id number] [place] [address] Jan, [facility] [place] [facility] [address] [id number] [place] [address] Jan, [facility] [address] [facility] [id number] [place] [address] Jan, [facility] [place] [facility] [address] [id number] [place] [address] Jan, [facility] [address] [id number] [place] [address] Mar, [facility] [place] [facility] [address] [id number] [place] [address] Mar, [facility] [place] [facility] [address] [id number] [place] [address] Mar, [facility] [place] [facility] [address] [id number] [place] [address] Mar, [facility] [address] [id number] [address] 14 Mar, 2009 [facility] [id number] [place] [address] Mar, [facility] [address] [id number] [address] Feb, [facility] [id number] [place] [address] Feb, [facility] [address] [id number] [address] Jan, [facility] [address] [id number] [address] Sep, [facility] [address] [id number] [address] May, IMMUNIZATIONS No Known Immunizations SOCIAL HISTORY Never Assessed REASON FOR VISIT Lab (walk-in) PLAN OF CARE VITAL SIGNS MEDICATIONS Unknown [...] Surgical History Left ear surgery Hospitalization History [facility] in [place]- Spontaneous Pneumothorax Hospitalization History [facility]- Colon resection Hospitalization History [facility] - diarrhea/ couldnt urinate nov 2017
--- OUTSIDE RECORDS SUMMARY | 2018-10-15 01:22 | XMS REPORT ---
Author Author AGUSTÍN PRATER Organization [facility] Address [address] [place] [address] Care Team Providers Care Rn Resource Nurse Name Role Phone AGUSTÍN PRATER Unavailable PROBLEMS Type Condition ICD9-CM Code OEJ10-YX Code Onset Dates Condition Status SNOMED Code Problem Anxiety F41.9 Active 31899491 Problem Chronic pain G89.29 Active 72613989 Problem Constipation K59.00 Active 90066157 Problem Insomnia G47.00 Active 513406999 Problem HTN (hypertension) I10 Active 86178192 Problem Chronic kidney disease, stage III (moderate) N18.3 Active 766963131 Problem Primary insomnia F51.01 Active 2328447 Problem Thoracic back pain, unspecified back pain laterality, unspecified chronicity M54.6 Active 058236075 Problem Hyperlipidemia E78.5 Active 73040250 Problem Environmental allergies Z91.09 Active 369570788 Problem Vitamin D deficiency E55.9 Active 37348744 ALLERGIES No Information ENCOUNTERS Encounter Location Date Diagnosis [place] [id number] [place] [address] Dec, Diarrhea of presumed infectious origin R19.7 [place] [id number] [place] [address] Dec, Diarrhea of presumed infectious origin R19.7 [place] [id number] [place] [address] 18 Dec, 2017 Thoracic back pain, unspecified back pain laterality, unspecified chronicity M54.6 [place] [id number] [place] [address] Dec, [place] [id number] [place] [address] Dec, Anxiety F41.9 and Thoracic back pain, unspecified back pain laterality, unspecified chronicity M54.6 [place] [address] [address] Dec, Diarrhea of presumed infectious origin R19.7 [place] [address] [address] Dec, [place] [id number] [place] [address] Dec, Anxiety F41.9 and Thoracic back pain, unspecified back pain laterality, unspecified chronicity M54.6 [place] [id number] [place] [address] Dec, Anxiety F41.9 and Thoracic back pain, unspecified back pain laterality, unspecified chronicity M54.6 [employer] [facility] [address] [place], [place] [id number] Dec, Diarrhea of presumed infectious origin R19.7 ; Anxiety F41.9 ; Thoracic back pain, unspecified back pain laterality, unspecified chronicity M54.6 and HTN (hypertension) I10 [address] [place] [address] Dec, Anxiety F41.9 [facility] [employer] [address] [place] [id number] Dec, Anxiety F41.9 ; Diarrhea of presumed infectious origin R19.7 ; Generalized abdominal pain R10.84 and Localized edema R60.0 [place] [id number] [place] [address] Nov, [facility] [employer] [address] [place] [id number] Nov, Anxiety F41.9 ; Urinary retention R33.9 ; Diarrhea of presumed infectious origin R19.7 ; Weakness R53.1 ; Acute kidney failure, unspecified N17.9 ; Chronic kidney disease, stage III (moderate) N18.3 and Thoracic back pain, unspecified back pain laterality, unspecified chronicity M54.6 [place] [id number] [place] [address] Oct, Thoracic back pain, unspecified back pain laterality, unspecified chronicity M54.6 and Anxiety F41.9 [place] [id number] [place] [address] Sep, Thoracic back pain, unspecified back pain laterality, unspecified chronicity M54.6 and Anxiety F41.9 [place] [address] [address] Sep, Thoracic back pain, unspecified back pain laterality, unspecified chronicity M54.6 ; Anxiety F41.9 and Encounter for medication monitoring Z51.81 [place] [address] [address] August, [place] [address] [address] August, Thoracic back pain, unspecified back pain laterality, unspecified chronicity M54.6 and Anxiety F41.9 [place] [id number] [place] [address] August, Hyperlipidemia E78.5 and HTN (hypertension) I10 [place] [id number] [place] [address] August, [place] [id number] [place] [address] August, Medicare welcome exam Z00.00 ; Chronic kidney failure N18.9 ; Anxiety F41.9 ; Chronic pain G89.29 ; Insomnia G47.00 ; Hyperlipidemia E78.5 ; HTN (hypertension) I10 and Thoracic back pain, unspecified back pain laterality, unspecified chronicity M54.6 [place] [id number] [place] [address] Jul, [place] [id number] [place] [address] Jul, [place] [address] [place] [address] [address] Jul, [place] [id number] [place] [address] Jul, Anxiety F41.9 [place] [id number] [place] [address] Jul, Thoracic back pain, unspecified back pain laterality, unspecified chronicity M54.6 and Anxiety F41.9 [place] [id number] [place] [address] Jun, Thoracic back pain, unspecified back pain laterality, unspecified chronicity M54.6 and Anxiety F41.9 [place] [id number] [place] [address] 12 May, 2017 Thoracic back pain, unspecified back pain laterality, unspecified chronicity M54.6 and Anxiety F41.9 [place] [id number] [place] [address] Apr, Thoracic back pain, unspecified back pain laterality, unspecified chronicity M54.6 and Anxiety F41.9 [place] [id number] [place] [address] Mar, [place] [id number] [place] [address] Mar, Thoracic back pain, unspecified back pain laterality, unspecified chronicity M54.6 and Anxiety F41.9 [place] [id number] [place] [address] 14 Mar, 2017 Thoracic back pain, unspecified back pain laterality, unspecified chronicity M54.6 ; HTN (hypertension) I10 ; Hyperlipidemia E78.5 and Anxiety F41.9 [place] [address] [place] [address] Feb, Thoracic back pain, unspecified back pain laterality, unspecified chronicity M54.6 and Anxiety F41.9 [place] [id number] [place] [address] Nov, [facility] [id number] [place] [address] Oct, [facility] [id number] [place] [address] Oct, Thoracic back pain, unspecified back pain laterality, unspecified chronicity M54.6 [facility] [id number] [place] [address] Oct, HTN (hypertension) I10 ; Constipation K59.00 ; Hyperlipidemia E78.5 ; Thoracic back pain, unspecified back pain laterality, unspecified chronicity M54.6 ; Chronic pain G89.29 ; Anxiety F41.9 ; Chronic kidney failure N18.9 ; Environmental allergies Z91.09 ; Vitamin D deficiency E55.9 and Primary insomnia F51.01 [facility] [id number] [place] [address] Sep, Anxiety F41.9 [facility] [id number] [place] [address] Sep, [facility] [id number] [place] [address] August, Anxiety F41.9 [facility] [id number] [place] [address] August, [facility] [id number] [place] [address] Jul, Anxiety F41.9 [facility] [id number] [place] [address] Jul, [facility] [id number] [place] [address] Jun, Anxiety F41.9 [facility] [id number] [place] [address] Jun, [place] [address] [address] May, [facility] [address] [place] [address] May, [facility] [address] [address] May, [facility] [id number] [place] [address] Apr, [facility] [id number] [place] [address] Apr, [facility] [id number] [place] [address] Apr, Anxiety F41.9 [facility] [id number] [place] [address] Apr, Anxiety F41.9 [facility] [id number] [place] [address] Apr, [facility] [address] [place] [address] Mar, HTN (hypertension) I10 ; Tremor R25.1 ; Hypercholesterolemia E78.0 ; Constipation K59.00 ; Chronic pain G89.29 ; Hyperlipidemia E78.5 ; Insomnia G47.00 ; Anxiety F41.9 and Thoracic back pain, unspecified back pain laterality, unspecified chronicity M54.6 [facility] [address] [address] Mar, Tremor R25.1 ; HTN (hypertension) I10 ; Hypercholesterolemia E78.0 ; Constipation K59.00 ; Chronic pain G89.29 ; Hyperlipidemia E78.5 ; Insomnia G47.00 ; Anxiety F41.9 and Thoracic back pain, unspecified back pain laterality, unspecified chronicity M54.6 [facility] [address] [address] Mar, [facility] [address] [facility] [id number] [place] [address] Mar, [facility] [address] [facility] [id number] [place] [address] Feb, [facility] [address] [facility] [id number] [place] [address] Jan, [facility] [address] [facility] [id number] [place] [address], [place] [address] Jan, [facility] [address] [facility] [id number] [place] [address] Dec, [facility] [address] [facility] [id number] [place] [address], [place] [address] Nov, [facility] [id number] [place] [address] Nov, [facility] [id number] [place] [address] Oct, Anxiety F41.9 [facility] [address] [facility] [id number] [place] [address] Oct, Chronic pain G89.29 [facility] [id number] [place] [address] Sep, [facility] [address] [address] Sep, [facility] [address] [facility] [id number] [place] [address] Sep, [facility] [address] [facility] [id number] [place] [address] Sep, [facility] [address] [facility] [id number] [address] 16 Sep, 2015 Chronic pain syndrome G89.4 [facility] [address] [address] 15 Sep, 2015 HTN (hypertension) I10 ; Chronic pain G89.29 ; Hypercholesterolemia E78.0 ; Chronic kidney failure N18.9 ; Constipation, unspecified constipation type K59.00 ; Anxiety F41.9 and Thoracic back pain, unspecified back pain laterality, unspecified chronicity M54.6 [facility] [id number] [place] [address] August, Chronic pain syndrome G89.4 [facility] [address] [address] August, Chronic pain syndrome G89.4 [facility] [address] [address] Jul, Anxiety disorder, unspecified F41.9 and Chronic pain syndrome G89.4 [facility] [id number] [place] [address] Jul, Insomnia, unspecified G47.00 and Chronic pain syndrome G89.4 [facility] [id number] [place] [address] Jul, Allergic rhinitis J30.9 [facility] [id number] [place] [address] Jul, Constipation, unspecified K59.00 [facility] [id number] [place] [address] Jul, [facility] [id number] [place] [address] Jun, [facility] [id number] [place] [address] Jun, [place] [address] [address] Jun, [facility] [id number] [place] [address] Jun, [facility] [id number] [place] [address] Jun, [facility] [address] [address] Jun, [facility] [id number] [place] [address] May, [facility] [id number] [place] [address] May, [facility] [id number] [place] [address] May, Anxiety F41.9 ; Insomnia G47.00 ; Hyperlipidemia E78.5 ; Chronic pain G89.29 ; HTN (hypertension) I10 ; Environmental allergies V15.09 and Constipation 564.00 [facility] [id number] [place] [address] Apr, [facility] [id number] [place] [address] Apr, [facility] [id number] [place] [address] Apr, [facility] [id number] [place] [address] Mar, [facility] [address] [address] Mar, [facility] [id number] [place] [address] Mar, [facility] [address] [place] [address] Feb, [facility] [id number] [place] [address] Feb, [facility] [id number] [address] Feb, [facility] [address] [place] [address] Jan, HTN (hypertension) I10 ; Constipation K59.00 ; Chronic pain G89.29 ; Hyperlipidemia E78.5 ; Hypercholesterolemia E78.0 ; Insomnia G47.00 and Anxiety F41.9 [place] [id number] [place] [address] Jan, [place] [id number] [place] [address] Dec, [address] [address] Nov, [place] [id number] [place] [address] Oct, Chronic kidney disease, unspecified 585.9 ; Chronic pain syndrome 338.4 ; Hyperlipidemia 272.4 and Essential hypertension 401.9 [place] [id number] [place] [address] Oct, Chronic kidney disease 585.9 [place] [id number] [place] [address] Oct, [place] [id number] [place] [address] Oct, Chronic kidney disease, unspecified 585.9 ; Hypercalcemia 275.42 ; Hyperlipidemia 272.4 ; Essential hypertension 401.9 ; Chronic pain syndrome 338.4 ; Insomnia 780.52 ; Constipation 564.00 ; Environmental allergies V15.09 and Anxiety 300.00 [place] [id number] [place] [address] Oct, Chronic kidney disease 585.9 [place] [id number] [place] [address] Oct, [place] [id number] [place] [address] Oct, Chronic kidney disease 585.9 and Hyperlipidemia 272.4 [place] [id number] [place] [address] Oct, [facility] [address] [id number] [place] [address] 10 Oct, 2014 [facility] [address] [id number] [place] [address] 18 Sep, 2014 [facility] [address] [id number] [place] [address] 15 Sep, 2014 [facility] [address] [id number] [place] [address] 15 Sep, 2014 Chronic kidney disease 585.9 and Hyperlipidemia 272.4 [facility] [address] [id number] [place] [address] Sep, [facility] [address] [id number] [place] [address] August, [facility] [address] [facility] [id number] [place] [address] August, [facility] [address] [id number] [place] [address] Jul, [facility] [address] [id number] [place] [address] Jul, [facility] [address] [facility] [id number] [place] [address] Jun, [facility] [place] [facility] [address] [id number] [place] [address] Jun, [facility] [place] [facility] [address] [id number] [place] [address] 16 Jun, 2014 [facility] [place] [facility] [address] [id number] [place] [address] 16 Jun, 2014 [facility] [place] [facility] [address] [id number] [place] [address] 09 Jun, 2014 [facility] [place] [facility] [address] [facility] [id number] [place] [address] Jun, [facility] [place] [facility] [address] [id number] [place] [address] Jun, [facility] [place] [facility] [address] [id number] [place] [address] Jun, [facility] [place] [facility] [address] [id number] [place] [address] May, [facility] [place] [facility] [address] [id number] [place] [address] May, [facility] [place] [facility] [address] [id number] [place] [address] May, [facility] [place] [facility] [address] [id number] [place] [address] May, [facility] [place] [facility] [address] [id number] [place] [address] Apr, [facility] [place] [facility] [address] [id number] [place] [address] Apr, [facility] [place] [facility] [address] [id number] [place] [address] Apr, [facility] [place] [facility] [address] [id number] [place] [address] Apr, [facility] [place] [facility] [address] [id number] [place] [address] Apr, [facility] [place] [facility] [address] [id number] [place] [address] Apr, [facility] [place] [facility] [address] [id number] [place] [address] Apr, [facility] [place] [facility] [address] [id number] [place] [address] Apr, [facility] [place] [facility] [address] [id number] [place] [address] Apr, [facility] [place] [facility] [address] [id number] [address] Apr, [facility] [place] [facility] [address] [id number] [place] [address] Apr, [facility] [place] [facility] [address] [id number] [place] [address] Mar, [facility] [place] [facility] [address] [id number] [place] [address] Mar, [facility] [place] [facility] [address] [id number] [place] [address] Feb, [facility] [place] [facility] [address] [id number] [place] [address] Feb, [facility] [place] [facility] [address] [id number] [place] [address] Feb, [facility] [place] [facility] [address] [id number] [place] [address] Feb, [facility] [place] [facility] [address] [id number] [place] [address] Feb, [facility] [place] [facility] [address] [id number] [place] [address] Feb, [facility] [place] [facility] [address] [id number] [place] [address] Feb, [facility] [place] [facility] [address] [id number] [address] Feb, [facility] [place] [facility] [address] [id number] [address] Feb, [facility] [place] [facility] [address] [id number] [address] Feb, [facility] [place] [facility] [address] [id number] [place] [address] Jan, [facility] [place] [facility] [address] [id number] [place] [address] Jan, [facility] [place] [facility] [address] [id number] [place] [address] 27 Jan, 2013 [facility] [place] [facility] [address] [id number] [place] [address] Jan, [facility] [place] [facility] [address] [id number] [place] [address] Jan, [facility] [place] [facility] [address] [id number] [place] [address] 24 Jan, 2014 [facility] [place] [facility] [address] [id number] [place] [address] Jan, 2013 [facility] [place] [facility] [address] [id number] [place] [address] 17 Jan, 2014 [facility] [place] [facility] [address] [id number] [place] [address] 16 Jan, 2014 [facility] [place] [facility] [address] [id number] [place] [address] Jan, 2013 [facility] [place] [facility] [address] [id number] [place] [address] 06 Jan, 2014 [facility] [place] [facility] [address] [id number] [place] [address] 26 Dec, 2013 [facility] [place] [facility] [address] [id number] [place] [address] 26 Dec, 2013 [facility] [place] [facility] [address] [id number] [place] [address] 19 Dec, 2013 [facility] [place] [facility] [address] [id number] [place] [address] 19 Dec, 2013 [facility] [place] [facility] [address] [id number] [place] [address] 18 Dec, 2013 [facility] [place] [facility] [address] [id number] [place] [address] 18 Dec, 2013 [facility] [place] [facility] [address] [id number] [place] [address] Dec, [facility] [place] [facility] [address] [id number] [place] [address] Dec, [facility] [place] [facility] [address] [id number] [place] [address] Nov, [facility] [place] [facility] [address] [id number] [place] [address] Nov, [facility] [place] [facility] [address] [id number] [place] [address] Nov, [facility] [place] [facility] [address] [id number] [place] [address] Nov, [facility] [place] [facility] [address] [id number] [place] [address] Nov, [facility] [place] [facility] [address] [id number] [place] [address] Nov, [facility] [place] [facility] [address] [id number] [place] [address] Nov, [facility] [place] [facility] [address] [id number] [place] [address] Nov, [facility] [place] [facility] [address] [id number] [place] [address] Oct, [facility] [place] [facility] [address] [id number] [place] [address] Oct, [facility] [place] [facility] [address] [id number] [place] [address] Oct, [facility] [place] [facility] [address] [id number] [place] [address] Oct, [facility] [place] [facility] [address] [id number] [place] [address] Sep, [facility] [place] [facility] [address] [id number] [place] [address] Sep, [facility] [place] [facility] [address] [id number] [place] [address] Sep, [facility] [place] [facility] [address] [id number] [place] [address] Sep, [facility] [place] [facility] [address] [id number] [place] [address] Sep, [facility] [place] [facility] [address] [id number] [place] [address] Sep, [facility] [place] [facility] [address] [id number] [place] [address] Sep, [facility] [place] [facility] [address] [id number] [place] [address] Sep, [facility] [place] [facility] [address] [id number] [place] [address] August, [facility] [place] [facility] [address] [id number] [place] [address] August, [facility] [place] [facility] [address] [id number] [place] [address] August, [facility] [place] [facility] [address] [id number] [place] [address] August, [facility] [place] [facility] [address] [id number] [place] [address] August, [facility] [place] [facility] [address] [id number] [place] [address] August, [facility] [place] [facility] [address] [id number] [place] [address] August, [facility] [place] [facility] [address] [id number] [place] [address] August, [facility] [place] [facility] [address] [id number] [place] [address] August, [facility] [place] [facility] [address] [id number] [place] [address] August, [facility] [place] [facility] [address] [id number] [place] [address] Jul, [facility] [place] [facility] [address] [id number] [place] [address] Jul, [facility] [place] [facility] [address] [id number] [place] [address] Jul, [facility] [place] [facility] [address] [id number] [place] [address] Jul, [facility] [place] [facility] [address] [id number] [place] [address] Jul, [facility] [place] [facility] [address] [id number] [place] [address] Jul, [facility] [place] [facility] [address] [id number] [place] [address] Jul, [facility] [place] [facility] [address] [id number] [place] [address] Jul, [facility] [place] [facility] [address] [id number] [place] [address] Jun, [facility] [place] [facility] [address] [id number] [place] [address] Jun, [facility] [place] [facility] [address] [id number] [place] [address] Jun, [facility] [place] [facility] [address] [id number] [place] [address] Jun, [facility] [place] [facility] [address] [id number] [place] [address] Jun, [facility] [place] [facility] [address] [id number] [place] [address] Jun, [facility] [place] [facility] [address] [id number] [place] [address] May, [facility] [place] [facility] [address] [id number] [place] [address] May, [facility] [address] [id number] [place] [address] May, [facility] [place] [facility] [address] [id number] [place] [address] May, [facility] [place] [facility] [address] [id number] [place] [address] May, [facility] [place] [facility] [address] [id number] [place] [address] May, [facility] [place] [facility] [address] [id number] [place] [address] May, [facility] [place] [facility] [address] [id number] [place] [address] Apr, [facility] [address] [id number] [place] [address] Apr, [facility] [place] [facility] [address] [id number] [place] [address] Apr, [facility] [address] [id number] [place] [address] Apr, [facility] [place] [facility] [address] [id number] [place] [address] Apr, [facility] [address] [id number] [place] [address] Apr, [facility] [place] [facility] [address] [id number] [place] [address] Mar, [facility] [place] [facility] [address] [id number] [place] [address] Mar, [facility] [place] [facility] [address] [id number] [place] [address] Mar, [facility] [place] [facility] [address] [id number] [place] [address] Mar, [facility] [place] [facility] [address] [id number] [place] [address] 19 Mar, 2013 [facility] [place] [facility] [address] [id number] [place] [address] 19 Mar, 2013 [facility] [place] [facility] [address] [id number] [place] [address] 16 Mar, 2013 [facility] [place] [facility] [address] [id number] [place] [address] 16 Mar, 2013 [facility] [place] [facility] [address] [id number] [place] [address] 12 Mar, 2013 [facility] [place] [facility] [address] [id number] [place] [address] Mar, [facility] [place] [facility] [address] [id number] [place] [address] Feb, [facility] [place] [facility] [address] [id number] [place] [address] 25 Feb, 2013 [facility] [place] [facility] [address] [id number] [place] [address] Feb, [facility] [place] [facility] [address] [id number] [place] [address] 25 Feb, 2013 [facility] [place] [facility] [address] [id number] [place] [address] 14 Feb, 2013 [facility] [place] [facility] [address] [id number] [place] [address] 14 Feb, 2013 [facility] [place] [facility] [address] [id number] [place] [address] 11 Feb, 2013 [facility] [place] [facility] [address] [id number] [place] [address] 11 Feb, 2013 [facility] [place] [facility] [address] [id number] [place] [address] 08 Feb, 2013 [facility] [place] [facility] [address] [id number] [place] [address] Feb, [facility] [place] [facility] [address] [id number] [place] [address] Jan, [facility] [place] [facility] [address] [id number] [place] [address] Jan, [facility] [place] [facility] [address] [id number] [place] [address] Jan, [facility] [place] [facility] [address] [id number] [place] [address] Jan, [facility] [place] [facility] [address] [id number] [place] [address] Jan, [facility] [place] [facility] [address] [id number] [place] [address] Jan, [facility] [place] [facility] [address] [id number] [place] [address] Jan, [facility] [place] [facility] [address] [id number] [address] Jan, [facility] [place] [facility] [address] [id number] [place] [address] Jan, [facility] [place] [facility] [address] [id number] [place] [address] Dec, [facility] [place] [facility] [address] [id number] [address] Dec, [facility] [place] [facility] [address] [id number] [address] 21 Dec, 2012 [facility] [place] [facility] [address] [id number] [place] [address] 13 Dec, 2012 [facility] [place] [facility] [address] [id number] [place] [address] Nov, [facility] [place] [facility] [address] [id number] [place] [address] Nov, [facility] [place] [facility] [address] [id number] [place] [address] Nov, [facility] [address] [id number] [place] [address] Nov, [facility] [place] [facility] [address] [id number] [place] [address] Nov, [facility] [address] [id number] [place] [address] Nov, [facility] [place] [facility] [address] [id number] [place] [address] Oct, [facility] [address] [id number] [place] [address] Oct, [facility] [address] [id number] [place] [address] Oct, [facility] [address] [id number] [place] [address] Oct, [facility] [address] [id number] [place] [address] Sep, [facility] [place] [facility] [address] [id number] [place] [address] Sep[facility] [address] [id number] [place] [address] Sep, [facility] [place] [facility] [address] [id number] [place] [address] Sep, [facility] [place] [facility] [address] [id number] [place] [address] Sep, [facility] [place] [facility] [address] [id number] [place] [address] August, [facility] [place] [facility] [address] [id number] [place] [address] August, [facility] [place] [facility] [address] [id number] [place] [address] Jul, [facility] [place] [facility] [address] [id number] [place] [address] Jul, [facility] [address] [id number] [place] [address] 15 Jul, 2012 [facility] [address] [id number] [place] [address] Jul, [facility] [address] [id number] [place] [address] Jul, [facility] [address] [id number] [place] [address] Jun, [facility] [address] [id number] [place] [address] Jun, [facility] [address] [id number] [place] [address] Jun, [facility] [address] [id number] [place] [address] Jun, [facility] [address] [id number] [place] [address] Jun, [facility] [address] [id number] [place] [address] May, [facility] [address] [id number] [place] [address] May, [facility] [address] [id number] [place] [address] May, [facility] [address] [id number] [place] [address] May, [facility] [place] [facility] [address] [id number] [place] [address] 20 May, 2012 [facility] [place] [facility] [address] [id number] [place] [address] 14 May, 2012 [facility] [address] [id number] [place] [address] 13 May, 2012 [facility] [address] [id number] [place] [address] 08 May, 2012 [facility] [address] [id number] [place] [address] 04 May, 2012 [facility] [address] [id number] [place] [address] Apr, [facility] [address] [id number] [place] [address] Apr, [facility] [address] [id number] [place] [address] Apr, [facility] [address] [id number] [place] [address] Apr, [facility] [address] [id number] [place] [address] Apr, [facility] [address] [id number] [place] [address] Mar, [facility] [address] [id number] [place] [address] Mar, [facility] [address] [id number] [place] [address] Mar, [facility] [address] [id number] [place] [address] Mar, [facility] [address] [id number] [place] [address] Mar, [facility] [address] [id number] [place] [address] Mar, [facility] [address] [id number] [place] [address] Mar, [facility] [address] [id number] [place] [address] Mar, [facility] [place] [facility] [address] [id number] [place] [address] 07 Mar, 2012 [facility] [place] [facility] [address] [id number] [place] [address] Mar, [facility] [place] [facility] [address] [id number] [place] [address] 30 Feb, 2012 [facility] [place] [facility] [address] [id number] [place] [address] 30 Feb, 2012 [facility] [place] [facility] [address] [id number] [place] [address] Feb, [facility] [place] [facility] [address] [id number] [place] [address] 29 Feb, 2012 [facility] [place] [facility] [address] [id number] [place] [address] Feb, [facility] [place] [facility] [address] [id number] [place] [address] Feb, [facility] [place] [facility] [address] [id number] [place] [address] Feb, [facility] [place] [facility] [address] [id number] [place] [address] 20 Feb, 2012 [facility] [place] [facility] [address] [id number] [place] [address] 16 Feb, 2012 [facility] [place] [facility] [address] [id number] [address] 16 Feb, 2012 [facility] [place] [facility] [address] [id number] [place] [address] 13 Feb, 2012 [facility] [place] [facility] [address] [id number] [place] [address] 13 Feb, 2012 [facility] [place] [facility] [address] [id number] [place] [address] 12 Feb, 2012 [facility] [place] [facility] [address] [id number] [place] [address] Feb, [facility] [place] [facility] [address] [id number] [place] [address] Feb, [facility] [place] [facility] [address] [id number] [place] [address] Feb, [facility] [place] [facility] [address] [id number] [place] [address] Feb, [facility] [place] [facility] [address] [id number] [place] [address] Feb, [facility] [place] [facility] [address] [id number] [place] [address] Jan, [facility] [place] [facility] [address] [id number] [place] [address] Jan, [facility] [place] [facility] [address] [id number] [place] [address] Jan, [facility] [place] [facility] [address] [id number] [place] [address] Jan, [facility] [place] [facility] [address] [id number] [place] [address] Jan, [facility] [place] [facility] [address] [id number] [place] [address] Jan, [facility] [place] [facility] [address] [id number] [place] [address] Jan, [facility] [place] [facility] [address] [id number] [place] [address] Jan, [facility] [place] [facility] [address] [id number] [place] [address] Jan, [facility] [place] [facility] [address] [facility] [id number] [place] [address] Jan, [facility] [place] [facility] [address] [id number] [place] [address] Dec, [facility] [place] [facility] [address] [id number] [place] [address] 18 Dec, 2011 [facility] [place] [facility] [address] [id number] [place] [address] Dec, [facility] [place] [facility] [address] [id number] [place] [address] Dec, [facility] [place] [facility] [address] [id number] [place] [address] Nov, [facility] [place] [facility] [address] [id number] [place] [address] Nov, [facility] [place] [facility] [address] [id number] [place] [address] Nov, [facility] [place] [facility] [address] [id number] [place] [address] Nov, [facility] [place] [facility] [address] [id number] [place] [address] Nov, [facility] [place] [facility] [address] [id number] [place] [address] Nov, [facility] [place] [facility] [address] [id number] [place] [address] Oct, [facility] [place] [facility] [address] [id number] [place] [address] Oct, [facility] [place] [facility] [address] [id number] [place] [address] Oct, [facility] [place] [facility] [address] [id number] [place] [address] Oct, [facility] [place] [facility] [address] [id number] [place] [address] Oct, [facility] [place] [facility] [address] [id number] [place] [address] Sep, [facility] [place] [facility] [address] [id number] [place] [address] Sep, [facility] [address] [id number] [place] [address] Sep, [facility] [place] [facility] [address] [id number] [place] [address] Sep, [facility] [place] [facility] [address] [id number] [place] [address] Sep, [facility] [place] [facility] [address] [id number] [place] [address] August, [facility] [place] [facility] [address] [id number] [place] [address] August, [facility] [place] [facility] [address] [id number] [place] [address] August, [facility] [place] [facility] [address] [id number] [place] [address] August, [facility] [place] [facility] [address] [id number] [place] [address] Jul, [facility] [place] [facility] [address] [id number] [place] [address] 24 Jul, 2011 [facility] [place] [facility] [address] [id number] [place] [address] Jul, [facility] [place] [facility] [address] [id number] [place] [address] Jul, [facility] [place] [facility] [address] [id number] [place] [address] 18 Jul, 2011 [facility] [place] [facility] [address] [id number] [place] [address] 12 Jul, 2011 [facility] [place] [facility] [address] [id number] [place] [address] 11 Jul, 2011 [facility] [place] [facility] [address] [id number] [place] [address] 10 Jul, 2011 [facility] [place] [facility] [address] [id number] [place] [address] 09 Jul, 2011 [facility] [address] [id number] [place] [address] Jul, [facility] [place] [facility] [address] [id number] [place] [address] 05 Jul, 2011 [facility] [place] [facility] [address] [id number] [place] [address] Jul, [facility] [place] [facility] [address] [id number] [place] [address] Jul, [facility] [place] [facility] [address] [id number] [place] [address] Jul, [facility] [place] [facility] [address] [id number] [place] [address] Jun, [facility] [place] [facility] [address] [id number] [place] [address] Jun, [facility] [place] [facility] [address] [id number] [place] [address] Jun, [facility] [place] [facility] [address] [id number] [place] [address] 16 Jun, 2011 [facility] [place] [facility] [address] [id number] [place] [address] May, [facility] [place] [facility] [address] [id number] [place] [address] 16 May, 2011 [facility] [place] [facility] [address] [id number] [place] [address] May, [facility] [place] [facility] [address] [id number] [place] [address] Apr, [facility] [place] [facility] [address] [id number] [place] [address] 18 Apr, 2011 [facility] [place] [facility] [address] [id number] [place] [address] Apr, [facility] [place] [facility] [address] [id number] [place] [address] 11 Apr, 2011 [facility] [address] [id number] [place] [address] Apr, [facility] [address] [id number] [place] [address] Mar, [facility] [address] [id number] [place] [address] Mar, [facility] [address] [id number] [place] [address] Mar, [facility] [address] [id number] [place] [address] Mar, [facility] [address] [id number] [place] [address] Mar, [facility] [address] [id number] [place] [address] Mar, [facility] [address] [id number] [place] [address] Mar, [facility] [address] [id number] [place] [address] Feb, [facility] [address] [id number] [place] [address] Feb, [facility] [address] [id number] [place] [address] Feb, [facility] [place] [facility] [address] [id number] [place] [address] Feb, [facility] [place] [facility] [address] [id number] [place] [address] 16 Feb, 2011 [facility] [place] [facility] [address] [id number] [place] [address] 14 Feb, 2011 [facility] [place] [facility] [address] [id number] [place] [address] Feb, [facility] [place] [facility] [address] [id number] [place] [address] 31 Jan, 2011 [facility] [place] [facility] [address] [id number] [place] [address] 31 Jan, 2011 [facility] [place] [facility] [address] [id number] [place] [address] 31 Jan, 2011 [facility] [place] [facility] [address] [id number] [place] [address] 18 Jan, 2011 [facility] [place] [facility] [address] [id number] [place] [address] Jan, [facility] [place] [facility] [address] [id number] [place] [address] 17 Jan, 2011 [facility] [place] [facility] [address] [id number] [place] [address] Jun, [facility] [place] [facility] [address] [id number] [place] [address] 30 Mar, 2010 [facility] [place] [facility] [address] [id number] [place] [address] 20 Mar, 2010 [facility] [place] [facility] [address] [id number] [place] [address] 14 Mar, 2010 [facility] [place] [facility] [address] [id number] [place] [address] 14 Mar, 2010 [facility] [place] [facility] [address] [id number] [place] [address] 13 Mar, 2010 [facility] [place] [facility] [address] [id number] [place] [address] 07 Mar, 2010 [facility] [place] [facility] [address] [id number] [place] [address] 02 Mar, 2010 [facility] [place] [facility] [address] [id number] [place] [address] Mar, [facility] [place] [facility] [address] [id number] [place] [address] 30 Feb, 2010 [facility] [address] [id number] [place] [address] 29 Feb, 2010 [facility] [place] [facility] [address] [id number] [place] [address] 17 Feb, 2010 [facility] [address] [id number] [place] [address] 17 Feb, 2010 [facility] [place] [facility] [address] [id number] [place] [address] 16 Feb, 2010 [facility] [address] [id number] [place] [address] 08 Feb, 2010 [facility] [place] [facility] [address] [facility] [id number] [place] [address] Feb, [facility] [place] [facility] [address] [id number] [place] [address] Feb, [facility] [address] [id number] [place] [address] Jan, [facility] [place] [facility] [address] [id number] [place] [address] Jan, [facility] [address] [facility] [id number] [place] [address] Jan, [facility] [place] [facility] [address] [id number] [place] [address] Jan, [facility] [address] [id number] [place] [address] Mar, [facility] [place] [facility] [address] [id number] [place] [address] Mar, [facility] [place] [facility] [address] [id number] [place] [address] Mar, [facility] [place] [facility] [address] [id number] [place] [address] Mar, [facility] [address] [id number] [address] Mar, [facility] [address] [facility] [id number] [address] Mar, [facility] [address] [facility] [id number] [address] Feb, [facility] [id number] [address] Feb, [facility] [address] [id number] [address] Jan, [facility] [id number] [address] Sep, [facility] [address] [id number] [address] May, IMMUNIZATIONS No Known Immunizations SOCIAL HISTORY Never Assessed REASON FOR VISIT Controlled Med Refill PLAN OF CARE VITAL SIGNS MEDICATIONS Medication Instructions Dosage Frequency Start Date End Date Duration Status [place] 10-325 MG Orally every 6 hrs 1 tablet as needed 6h Dec, Jan, 28 days Active RESULTS No Results PROCEDURES [...] Surgical History Left ear surgery Hospitalization History [facility] in [place]- Spontaneous Pneumothorax Hospitalization History [facility]- Colon resection Hospitalization History via [facility] - diarrhea/ couldnt urinate nov 2017
--- OUTSIDE RECORDS SUMMARY | 2018-10-15 01:23 | XMS REPORT ---
Author Author AGUSTÍN PRATER Organization [facility] Address [address] [place] [address] Care Team Providers Care Quill Layer Name Role Phone AGUSTÍN PRATER Unavailable PROBLEMS Type Condition ICD9-CM Code JUU58-UA Code Onset Dates Condition Status SNOMED Code Problem Anxiety F41.9 Active 72321544 Problem Chronic pain G89.29 Active 74725771 Problem Constipation K59.00 Active 37332353 Problem Insomnia G47.00 Active 446970830 Problem HTN (hypertension) I10 Active 80380830 Problem Chronic kidney disease, stage III (moderate) N18.3 Active 960109783 Problem Primary insomnia F51.01 Active 7740289 Problem Thoracic back pain, unspecified back pain laterality, unspecified chronicity M54.6 Active 872398031 Problem Hyperlipidemia E78.5 Active 91897967 Problem Environmental allergies Z91.09 Active 716248008 Problem Vitamin D deficiency E55.9 Active 26706125 ALLERGIES No Information ENCOUNTERS Encounter Location Date Diagnosis [place] [id number] [place] [address] Dec, Diarrhea of presumed infectious origin R19.7 [place] [address] [place] [id number] [place] [address] Dec, Diarrhea of presumed infectious origin R19.7 [place] [address] [place] [id number] [place] [address] 18 Dec, 2017 Thoracic back pain, unspecified back pain laterality, unspecified chronicity M54.6 [place] [address] [place] [id number] [place] [address] Dec, [place] [address] [place] [id number] [place] [address] 17 Dec, 2017 Anxiety F41.9 and Thoracic back pain, unspecified back pain laterality, unspecified chronicity M54.6 [place] [address] [address] Dec, Diarrhea of presumed infectious origin R19.7 [place] [address] [place] [address] Dec, [place] [id number] [place] [address] Dec, Anxiety F41.9 and Thoracic back pain, unspecified back pain laterality, unspecified chronicity M54.6 [place] [address] [place] [id number] [place] [address] Dec, Anxiety F41.9 and Thoracic back pain, unspecified back pain laterality, unspecified chronicity M54.6 [facility] [employer] [address] [place] [id number] Dec, Diarrhea of presumed infectious origin R19.7 ; Anxiety F41.9 ; Thoracic back pain, unspecified back pain laterality, unspecified chronicity M54.6 and HTN (hypertension) I10 [id number] [place] [address] Dec, Anxiety F41.9 [facility] [employer] [address] [place] [id number] Dec, Anxiety F41.9 ; Diarrhea of presumed infectious origin R19.7 ; Generalized abdominal pain R10.84 and Localized edema R60.0 [place] [id number] [place] [address] Nov, [facility] [employer] [address] [place] [id number] Nov, Anxiety F41.9 ; Urinary retention R33.9 ; Diarrhea of presumed infectious origin R19.7 ; Weakness R53.1 ; Acute kidney failure, unspecified N17.9 ; Chronic kidney disease, stage III (moderate) N18.3 and Thoracic back pain, unspecified back pain laterality, unspecified chronicity M54.6 [place] [address] [place] [address] Oct, Thoracic back pain, unspecified back pain laterality, unspecified chronicity M54.6 and Anxiety F41.9 [place] [address] [place] [id number] [place] [address] Sep, Thoracic back pain, unspecified back pain laterality, unspecified chronicity M54.6 and Anxiety F41.9 [place] [address] [address] Sep, Thoracic back pain, unspecified back pain laterality, unspecified chronicity M54.6 ; Anxiety F41.9 and Encounter for medication monitoring Z51.81 [place] [address] [address] August, [place] [address] [address] August, Thoracic back pain, unspecified back pain laterality, unspecified chronicity M54.6 and Anxiety F41.9 [place] [address] [place] [id number] [place] [address] August, Hyperlipidemia E78.5 and HTN (hypertension) I10 [place] [address] [place] [id number] [place] [address] August, [place] [address] [place] [id number] [place] [address] August, Medicare welcome exam Z00.00 ; Chronic kidney failure N18.9 ; Anxiety F41.9 ; Chronic pain G89.29 ; Insomnia G47.00 ; Hyperlipidemia E78.5 ; HTN (hypertension) I10 and Thoracic back pain, unspecified back pain laterality, unspecified chronicity M54.6 [place] [address] [place] [id number] [place] [address] Jul, [place] [address] [place] [id number] [place] [address] Jul, [place] [address] [place] [address] Jul, [place] [address] [place] [id number] [place] [address] Jul, Anxiety F41.9 [place] [address] [place] [id number] [place] [address] Jul, Thoracic back pain, unspecified back pain laterality, unspecified chronicity M54.6 and Anxiety F41.9 [place] [address] [place] [id number] [place] [address] Jun, Thoracic back pain, unspecified back pain laterality, unspecified chronicity M54.6 and Anxiety F41.9 [place] [address] [place] [id number] [place] [address] 12 May, 2017 Thoracic back pain, unspecified back pain laterality, unspecified chronicity M54.6 and Anxiety F41.9 [place] [address] [place] [id number] [place] [address] Apr, Thoracic back pain, unspecified back pain laterality, unspecified chronicity M54.6 and Anxiety F41.9 [place] [address] [place] [id number] [place] [address] Mar, [place] [address] [place] [id number] [place] [address] Mar, Thoracic back pain, unspecified back pain laterality, unspecified chronicity M54.6 and Anxiety F41.9 [place] [address] [place] [id number] [place] [address] 14 Mar, 2017 Thoracic back pain, unspecified back pain laterality, unspecified chronicity M54.6 ; HTN (hypertension) I10 ; Hyperlipidemia E78.5 and Anxiety F41.9 [place] [address] [place] [address] Feb, Thoracic back pain, unspecified back pain laterality, unspecified chronicity M54.6 and Anxiety F41.9 [place] [address] [place] [id number] [place] [address] Nov, [facility] [address] [place] [address] [id number] [place] [address] Oct, [facility] [address] [place] [id number] [place] [address] Oct, Thoracic back pain, unspecified back pain laterality, unspecified chronicity M54.6 [facility] [address] [place] [address] [id number] [place] [address] Oct, HTN (hypertension) I10 ; Constipation K59.00 ; Hyperlipidemia E78.5 ; Thoracic back pain, unspecified back pain laterality, unspecified chronicity M54.6 ; Chronic pain G89.29 ; Anxiety F41.9 ; Chronic kidney failure N18.9 ; Environmental allergies Z91.09 ; Vitamin D deficiency E55.9 and Primary insomnia F51.01 [facility] [address] [place] [id number] [place] [address] Sep, Anxiety F41.9 [facility] [address] [place] [id number] [place] [address] Sep, [facility] [address] [place] [id number] [place] [address] August, Anxiety F41.9 [facility] [address] [place] [id number] [place] [address] August, [facility] [address] [place] [id number] [place] [address] Jul, Anxiety F41.9 [facility] [address] [place] [id number] [place] [address] Jul, [facility] [address] [place] [id number] [place] [address] Jun, Anxiety F41.9 [facility] [address] [place] [id number] [place] [address] Jun, [place] [address], [place] [address] May, [facility] [address] [place] [address] May, [facility] [address], [place] [address] May, [facility] [address] [place] [id number] [place] [address] Apr, [facility] [address] [place] [id number] [place] [address] Apr, [facility] [address] [place] [id number] [place] [address] Apr, Anxiety F41.9 [facility] [address] [place] [id number] [place] [address] Apr, Anxiety F41.9 [facility] [address] [place] [id number] [place] [address] Apr, [facility] [address] [place] [address] Mar, HTN (hypertension) I10 ; Tremor R25.1 ; Hypercholesterolemia E78.0 ; Constipation K59.00 ; Chronic pain G89.29 ; Hyperlipidemia E78.5 ; Insomnia G47.00 ; Anxiety F41.9 and Thoracic back pain, unspecified back pain laterality, unspecified chronicity M54.6 [facility] [address], [place] [address] Mar, Tremor R25.1 ; HTN (hypertension) I10 ; Hypercholesterolemia E78.0 ; Constipation K59.00 ; Chronic pain G89.29 ; Hyperlipidemia E78.5 ; Insomnia G47.00 ; Anxiety F41.9 and Thoracic back pain, unspecified back pain laterality, unspecified chronicity M54.6 [facility] [address], [place] [address] Mar, [facility] [address] [facility] [id number] [place] [address] Mar, [facility] [address] [facility] [id number] [place] [address] Feb, [facility] [address] [facility] [id number] [place] [address] Jan, [facility] [address] [facility] [id number] [place] [address], [place] [address] Jan, [facility] [address] [facility] [id number] [place] [address] Dec, [facility] [address] [facility] [id number] [place] [address], [place] [address] Nov, [facility] [address] [place] [address] Nov, [facility] [address] [place] [address] Oct, Anxiety F41.9 [facility] [address] [facility] [id number] [place] [address] Oct, Chronic pain G89.29 [facility] [address] [place] [address] Sep, [facility] [address], [place] [address] Sep, [facility] [address] [facility] [id number], [place] [address] Sep, [facility] [address] [facility] [id number] [place] [address] Sep, [facility] [address] [facility] [id number], [place] [address] 16 Sep, 2015 Chronic pain syndrome G89.4 [facility] [address], [place] [address] 15 Sep, 2015 HTN (hypertension) I10 ; Chronic pain G89.29 ; Hypercholesterolemia E78.0 ; Chronic kidney failure N18.9 ; Constipation, unspecified constipation type K59.00 ; Anxiety F41.9 and Thoracic back pain, unspecified back pain laterality, unspecified chronicity M54.6 [facility] [address] [place] [id number] [place] [address] August, Chronic pain syndrome G89.4 [facility] [address] [address] August, Chronic pain syndrome G89.4 [facility] [address] [address] Jul, Anxiety disorder, unspecified F41.9 and Chronic pain syndrome G89.4 [facility] [address] [place] [id number] [place] [address] Jul, Insomnia, unspecified G47.00 and Chronic pain syndrome G89.4 [facility] [address] [place] [id number] [place] [address] Jul, Allergic rhinitis J30.9 [facility] [address] [place] [id number] [place] [address] Jul, Constipation, unspecified K59.00 [facility] [address] [place] [id number] [place] [address] Jul, [facility] [address] [place] [id number] [place] [address] Jun, [facility] [address] [place] [id number] [place] [address] Jun, [place] [address] [address] Jun, [facility] [address] [place] [id number] [place] [address] Jun, [facility] [address] [place] [id number] [place] [address] Jun, [facility] [address], [place] [address] Jun, [facility] [address] [place] [id number] [place] [address] May, [facility] [address] [place] [id number] [place] [address] May, [facility] [address] [place] [id number] [place] [address] May, Anxiety F41.9 ; Insomnia G47.00 ; Hyperlipidemia E78.5 ; Chronic pain G89.29 ; HTN (hypertension) I10 ; Environmental allergies V15.09 and Constipation 564.00 [facility] [address] [place] [id number] [place] [address] Apr, [facility] [address] [place] [id number] [place] [address] Apr, [facility] [address] [place] [id number] [place] [address] Apr, [facility] [address] [place] [id number] [place] [address] Mar, [facility] [address], [place] [address] Mar, [facility] [address] [place] [id number] [place] [address] Mar, [facility] [address] [place] [address] Feb, [facility] [address] [place] [id number] [place] [address] Feb, [facility] [address] [place] [id number] [address] Feb, [facility] [address] [place] [address] Jan, HTN (hypertension) I10 ; Constipation K59.00 ; Chronic pain G89.29 ; Hyperlipidemia E78.5 ; Hypercholesterolemia E78.0 ; Insomnia G47.00 and Anxiety F41.9 [place] [id number] [place] [address] Jan, [place] [id number] [place] [address] Dec, [address] [address] Nov, [place] [id number] [place] [address] Oct, Chronic kidney disease, unspecified 585.9 ; Chronic pain syndrome 338.4 ; Hyperlipidemia 272.4 and Essential hypertension 401.9 [place] [id number] [place] [address] Oct, Chronic kidney disease 585.9 [place] [id number] [place] [address] Oct, [place] [id number] [place] [address] Oct, Chronic kidney disease, unspecified 585.9 ; Hypercalcemia 275.42 ; Hyperlipidemia 272.4 ; Essential hypertension 401.9 ; Chronic pain syndrome 338.4 ; Insomnia 780.52 ; Constipation 564.00 ; Environmental allergies V15.09 and Anxiety 300.00 [place] [id number] [place] [address] Oct, Chronic kidney disease 585.9 [place] [id number] [place] [address] Oct, [place] [id number] [place] [address] Oct, Chronic kidney disease 585.9 and Hyperlipidemia 272.4 [place] [id number] [place] [address] Oct, [facility] [address] [id number] [place] [address] 10 Oct, 2014 [facility] [address] [id number] [place] [address] 18 Sep, 2014 [facility] [address] [id number] [place] [address] 15 Sep, 2014 [facility] [address] [id number] [place] [address] 15 Sep, 2014 Chronic kidney disease 585.9 and Hyperlipidemia 272.4 [facility] [address] [id number] [place] [address] Sep, [facility] [address] [id number] [place] [address] August, [facility] [address] [facility] [id number] [place] [address] August, [facility] [address] [id number] [place] [address] Jul, [facility] [address] [id number] [place] [address] Jul, [facility] [address] [facility] [id number] [place] [address] Jun, [facility] [place] [facility] [address] [id number] [place] [address] Jun, [facility] [place] [facility] [address] [id number] [place] [address] 16 Jun, 2014 [facility] [place] [facility] [address] [id number] [place] [address] 16 Jun, 2014 [facility] [place] [facility] [address] [id number] [place] [address] 09 Jun, 2014 [facility] [place] [facility] [address] [facility] [id number] [place] [address] Jun, [facility] [place] [facility] [address] [id number] [place] [address] Jun, [facility] [place] [facility] [address] [id number] [place] [address] Jun, [facility] [place] [facility] [address] [id number] [place] [address] May, [facility] [place] [facility] [address] [id number] [place] [address] May, [facility] [place] [facility] [address] [id number] [place] [address] May, [facility] [place] [facility] [address] [id number] [place] [address] May, [facility] [place] [facility] [address] [id number] [place] [address] Apr, [facility] [place] [facility] [address] [id number] [place] [address] Apr, [facility] [place] [facility] [address] [id number] [place] [address] Apr, [facility] [place] [facility] [address] [id number] [place] [address] Apr, [facility] [place] [facility] [address] [id number] [place] [address] Apr, [facility] [place] [facility] [address] [id number] [place] [address] Apr, [facility] [place] [facility] [address] [id number] [place] [address] Apr, [facility] [place] [facility] [address] [id number] [place] [address] Apr, [facility] [place] [facility] [address] [id number] [place] [address] Apr, [facility] [place] [facility] [address] [id number], [place] [address] Apr, [facility] [place] [facility] [address] [id number] [place] [address] Apr, [facility] [place] [facility] [address] [id number] [place] [address] Mar, [facility] [place] [facility] [address] [id number] [place] [address] Mar, [facility] [place] [facility] [address] [id number] [place] [address] Feb, [facility] [place] [facility] [address] [id number] [place] [address] Feb, [facility] [place] [facility] [address] [id number] [place] [address] Feb, [facility] [place] [facility] [address] [id number] [place] [address] Feb, [facility] [place] [facility] [address] [id number] [place] [address] Feb, [facility] [place] [facility] [address] [id number] [place] [address] Feb, [facility] [place] [facility] [address] [id number] [place] [address] Feb, [facility] [place] [facility] [address] [id number], [place] [address] Feb, [facility] [place] [facility] [address] [id number], [place] [address] Feb, [facility] [place] [facility] [address] [id number], [place] [address] Feb, [facility] [place] [facility] [address] [id number] [place] [address] Jan, [facility] [place] [facility] [address] [id number] [place] [address] Jan, [facility] [place] [facility] [address] [id number] [place] [address] 27 Jan, 2013 [facility] [place] [facility] [address] [id number] [place] [address] Jan, [facility] [place] [facility] [address] [id number] [place] [address] Jan, [facility] [place] [facility] [address] [id number] [place] [address] 24 Jan, 2014 [facility] [place] [facility] [address] [id number] [place] [address] Jan, 2013 [facility] [place] [facility] [address] [id number] [place] [address] 17 Jan, 2014 [facility] [place] [facility] [address] [id number] [place] [address] 16 Jan, 2014 [facility] [place] [facility] [address] [id number] [place] [address] Jan, 2013 [facility] [place] [facility] [address] [id number] [place] [address] 06 Jan, 2014 [facility] [place] [facility] [address] [id number] [place] [address] 26 Dec, 2013 [facility] [place] [facility] [address] [id number] [place] [address] 26 Dec, 2013 [facility] [place] [facility] [address] [id number] [place] [address] 19 Dec, 2013 [facility] [place] [facility] [address] [id number] [place] [address] 19 Dec, 2013 [facility] [place] [facility] [address] [id number] [place] [address] 18 Dec, 2013 [facility] [place] [facility] [address] [id number] [place] [address] 18 Dec, 2013 [facility] [place] [facility] [address] [id number] [place] [address] Dec, [facility] [place] [facility] [address] [id number] [place] [address] Dec, [facility] [place] [facility] [address] [id number] [place] [address] Nov, [facility] [place] [facility] [address] [id number] [place] [address] Nov, [facility] [place] [facility] [address] [id number] [place] [address] Nov, [facility] [place] [facility] [address] [id number] [place] [address] Nov, [facility] [place] [facility] [address] [id number] [place] [address] Nov, [facility] [place] [facility] [address] [id number] [place] [address] Nov, [facility] [place] [facility] [address] [id number] [place] [address] Nov, [facility] [place] [facility] [address] [id number] [place] [address] Nov, [facility] [place] [facility] [address] [id number] [place] [address] Oct, [facility] [place] [facility] [address] [id number] [place] [address] Oct, [facility] [place] [facility] [address] [id number] [place] [address] Oct, [facility] [place] [facility] [address] [id number] [place] [address] Oct, [facility] [place] [facility] [address] [id number] [place] [address] Sep, [facility] [place] [facility] [address] [id number] [place] [address] Sep, [facility] [place] [facility] [address] [id number] [place] [address] Sep, [facility] [place] [facility] [address] [id number] [place] [address] Sep, [facility] [place] [facility] [address] [id number] [place] [address] Sep, [facility] [place] [facility] [address] [id number] [place] [address] Sep, [facility] [place] [facility] [address] [id number] [place] [address] Sep, [facility] [place] [facility] [address] [id number] [place] [address] Sep, [facility] [place] [facility] [address] [id number] [place] [address] August, [facility] [place] [facility] [address] [id number] [place] [address] August, [facility] [place] [facility] [address] [id number] [place] [address] August, [facility] [place] [facility] [address] [id number] [place] [address] August, [facility] [place] [facility] [address] [id number] [place] [address] August, [facility] [place] [facility] [address] [id number] [place] [address] August, [facility] [place] [facility] [address] [id number] [place] [address] August, [facility] [place] [facility] [address] [id number] [place] [address] August, [facility] [place] [facility] [address] [id number] [place] [address] August, [facility] [place] [facility] [address] [id number] [place] [address] August, [facility] [place] [facility] [address] [id number] [place] [address] Jul, [facility] [place] [facility] [address] [id number] [place] [address] Jul, [facility] [place] [facility] [address] [id number] [place] [address] Jul, [facility] [place] [facility] [address] [id number] [place] [address] Jul, [facility] [place] [facility] [address] [id number] [place] [address] Jul, [facility] [place] [facility] [address] [id number] [place] [address] Jul, [facility] [place] [facility] [address] [id number] [place] [address] Jul, [facility] [place] [facility] [address] [id number] [place] [address] Jul, [facility] [place] [facility] [address] [id number] [place] [address] Jun, [facility] [place] [facility] [address] [id number] [place] [address] Jun, [facility] [place] [facility] [address] [id number] [place] [address] Jun, [facility] [place] [facility] [address] [id number] [place] [address] Jun, [facility] [place] [facility] [address] [id number] [place] [address] Jun, [facility] [place] [facility] [address] [id number] [place] [address] Jun, [facility] [place] [facility] [address] [id number] [place] [address] May, [facility] [place] [facility] [address] [id number] [place] [address] May, [facility] [address] [id number] [place] [address] May, [facility] [place] [facility] [address] [id number] [place] [address] May, [facility] [place] [facility] [address] [id number] [place] [address] May, [facility] [place] [facility] [address] [id number] [place] [address] May, [facility] [place] [facility] [address] [id number] [place] [address] May, [facility] [place] [facility] [address] [id number] [place] [address] Apr, [facility] [address] [id number] [place] [address] Apr, [facility] [place] [facility] [address] [id number] [place] [address] Apr, [facility] [address] [id number] [place] [address] Apr, [facility] [place] [facility] [address] [id number] [place] [address] Apr, [facility] [address] [id number] [place] [address] Apr, [facility] [place] [facility] [address] [id number] [place] [address] Mar, [facility] [place] [facility] [address] [id number] [place] [address] Mar, [facility] [place] [facility] [address] [id number] [place] [address] Mar, [facility] [place] [facility] [address] [id number] [place] [address] Mar, [facility] [place] [facility] [address] [id number] [place] [address] 19 Mar, 2013 [facility] [place] [facility] [address] [id number] [place] [address] 19 Mar, 2013 [facility] [place] [facility] [address] [id number] [place] [address] 16 Mar, 2013 [facility] [place] [facility] [address] [id number] [place] [address] 16 Mar, 2013 [facility] [place] [facility] [address] [id number] [place] [address] 12 Mar, 2013 [facility] [place] [facility] [address] [id number] [place] [address] Mar, [facility] [place] [facility] [address] [id number] [place] [address] Feb, [facility] [place] [facility] [address] [id number] [place] [address] 25 Feb, 2013 [facility] [place] [facility] [address] [id number] [place] [address] Feb, [facility] [place] [facility] [address] [id number] [place] [address] 25 Feb, 2013 [facility] [place] [facility] [address] [id number] [place] [address] 14 Feb, 2013 [facility] [place] [facility] [address] [id number] [place] [address] 14 Feb, 2013 [facility] [place] [facility] [address] [id number] [place] [address] 11 Feb, 2013 [facility] [place] [facility] [address] [id number] [place] [address] 11 Feb, 2013 [facility] [place] [facility] [address] [id number] [place] [address] 08 Feb, 2013 [facility] [place] [facility] [address] [id number] [place] [address] Feb, [facility] [place] [facility] [address] [id number] [place] [address] Jan, [facility] [place] [facility] [address] [id number] [place] [address] Jan, [facility] [place] [facility] [address] [id number] [place] [address] Jan, [facility] [place] [facility] [address] [id number] [place] [address] Jan, [facility] [place] [facility] [address] [id number] [place] [address] Jan, [facility] [place] [facility] [address] [id number] [place] [address] Jan, [facility] [place] [facility] [address] [id number] [place] [address] Jan, [facility] [place] [facility] [address] [id number], [place] [address] Jan, [facility] [place] [facility] [address] [id number], [place] [address] Jan, [facility] [place] [facility] [address] [id number], [place] [address] Dec, [facility] [place] [facility] [address] [id number], [place] [address] Dec, [facility] [place] [facility] [address] [id number], [place] [address] 21 Dec, 2012 [facility] [place] [facility] [address] [id number], [place] [address] 13 Dec, 2012 [facility] [place] [facility] [address] [id number], [place] [address] Nov, [facility] [place] [facility] [address] [id number], [place] [address] Nov, [facility] [place] [facility] [address] [id number] [place] [address] Nov, [facility] [address] [id number] [place] [address] Nov, [facility] [place] [facility] [address] [id number] [place] [address] Nov, [facility] [address] [id number] [place] [address] Nov, [facility] [place] [facility] [address] [id number] [place] [address] Oct, [facility] [address] [id number] [place] [address] Oct, [facility] [address] [id number] [place] [address] Oct, [facility] [address] [id number] [place] [address] Oct, [facility] [address] [id number] [place] [address] Sep, [facility] [place] [facility] [address] [id number] [place] [address] Sep, [facility] [address] [id number] [place] [address] Sep, [facility] [place] [facility] [address] [id number] [place] [address] Sep, [facility] [place] [facility] [address] [id number] [place] [address] Sep, [facility] [place] [facility] [address] [id number] [place] [address] August, [facility] [place] [facility] [address] [id number] [place] [address] August, [facility] [place] [facility] [address] [id number] [place] [address] Jul, [facility] [place] [facility] [address] [id number] [place] [address] Jul, [facility] [address] [id number] [place] [address] 15 Jul, 2012 [facility] [address] [id number] [place] [address] Jul, [facility] [address] [id number] [place] [address] Jul, [facility] [address] [id number] [place] [address] Jun, [facility] [address] [id number] [place] [address] Jun, [facility] [address] [id number] [place] [address] Jun, [facility] [address] [id number] [place] [address] Jun, [facility] [address] [id number] [place] [address] Jun, [facility] [address] [id number] [place] [address] May, [facility] [address] [id number] [place] [address] May, [facility] [address] [id number] [place] [address] May, [facility] [address] [id number] [place] [address] May, [facility] [place] [facility] [address] [id number] [place] [address] 20 May, 2012 [facility] [place] [facility] [address] [id number] [place] [address] 14 May, 2012 [facility] [address] [id number] [place] [address] 13 May, 2012 [facility] [address] [id number] [place] [address] 08 May, 2012 [facility] [address] [id number] [place] [address] 04 May, 2012 [facility] [address] [id number] [place] [address] Apr, [facility] [address] [id number] [place] [address] Apr, [facility] [address] [id number] [place] [address] Apr, [facility] [address] [id number] [place] [address] Apr, [facility] [address] [id number] [place] [address] Apr, [facility] [address] [id number] [place] [address] Mar, [facility] [address] [id number] [place] [address] Mar, [facility] [address] [id number] [place] [address] Mar, [facility] [address] [id number] [place] [address] Mar, [facility] [address] [id number] [place] [address] Mar, [facility] [address] [id number] [place] [address] Mar, [facility] [address] [id number] [place] [address] Mar, [facility] [address] [id number] [place] [address] Mar, [facility] [place] [facility] [address] [id number] [place] [address] 07 Mar, 2012 [facility] [place] [facility] [address] [id number] [place] [address] Mar, [facility] [place] [facility] [address] [id number] [place] [address] 30 Feb, 2012 [facility] [place] [facility] [address] [id number] [place] [address] 30 Feb, 2012 [facility] [place] [facility] [address] [id number] [place] [address] Feb, [facility] [place] [facility] [address] [id number] [place] [address] 29 Feb, 2012 [facility] [place] [facility] [address] [id number] [place] [address] Feb, [facility] [place] [facility] [address] [id number] [place] [address] Feb, [facility] [place] [facility] [address] [id number] [place] [address] Feb, [facility] [place] [facility] [address] [id number] [place] [address] 20 Feb, 2012 [facility] [place] [facility] [address] [id number] [place] [address] 16 Feb, 2012 [facility] [place] [facility] [address] [id number], [place] [address] 16 Feb, 2012 [facility] [place] [facility] [address] [id number] [place] [address] 13 Feb, 2012 [facility] [place] [facility] [address] [id number] [place] [address] 13 Feb, 2012 [facility] [place] [facility] [address] [id number], [place] [address] 12 Feb, 2012 [facility] [place] [facility] [address] [id number], [place] [address] Feb, [facility] [place] [facility] [address] [id number] [place] [address] Feb, [facility] [place] [facility] [address] [id number], [place] [address] Feb, [facility] [place] [facility] [address] [id number] [place] [address] Feb, [facility] [place] [facility] [address] [id number], [place] [address] Feb, [facility] [place] [facility] [address] [id number] [place] [address] Jan, [facility] [place] [facility] [address] [id number] [place] [address] Jan, [facility] [place] [facility] [address] [id number], [place] [address] Jan, [facility] [place] [facility] [address] [id number], [place] [address] Jan, [facility] [place] [facility] [address] [id number], [place] [address] Jan, [facility] [place] [facility] [address] [id number], [place] [address] Jan, [facility] [place] [facility] [address] [id number], [place] [address] Jan, [facility] [place] [facility] [address] [id number], [place] [address] Jan, [facility] [place] [facility] [address] [id number], [place] [address] Jan, [facility] [place] [facility] [address] [facility] [id number], [place] [address] Jan, [facility] [place] [facility] [address] [id number], [place] [address] Dec, [facility] [place] [facility] [address] [id number] [place] [address] 18 Dec, 2011 [facility] [place] [facility] [address] [id number] [place] [address] Dec, [facility] [place] [facility] [address] [id number] [place] [address] Dec, [facility] [place] [facility] [address] [id number] [place] [address] Nov, [facility] [place] [facility] [address] [id number] [place] [address] Nov, [facility] [place] [facility] [address] [id number] [place] [address] Nov, [facility] [place] [facility] [address] [id number] [place] [address] Nov, [facility] [place] [facility] [address] [id number] [place] [address] Nov, [facility] [place] [facility] [address] [id number] [place] [address] Nov, [facility] [place] [facility] [address] [id number] [place] [address] Oct, [facility] [place] [facility] [address] [id number] [place] [address] Oct, [facility] [place] [facility] [address] [id number] [place] [address] Oct, [facility] [place] [facility] [address] [id number] [place] [address] Oct, [facility] [place] [facility] [address] [id number] [place] [address] Oct, [facility] [place] [facility] [address] [id number] [place] [address] Sep, [facility] [place] [facility] [address] [id number] [place] [address] Sep, [facility] [address] [id number] [place] [address] Sep, [facility] [place] [facility] [address] [id number] [place] [address] Sep, [facility] [place] [facility] [address] [id number] [place] [address] Sep, [facility] [place] [facility] [address] [id number] [place] [address] August, [facility] [place] [facility] [address] [id number] [place] [address] August, [facility] [place] [facility] [address] [id number] [place] [address] August, [facility] [place] [facility] [address] [id number] [place] [address] August, [facility] [place] [facility] [address] [id number] [place] [address] Jul, [facility] [place] [facility] [address] [id number] [place] [address] 24 Jul, 2011 [facility] [place] [facility] [address] [id number] [place] [address] Jul, [facility] [place] [facility] [address] [id number] [place] [address] Jul, [facility] [place] [facility] [address] [id number], [place] [address] 18 Jul, 2011 [facility] [place] [facility] [address] [id number] [place] [address] 12 Jul, 2011 [facility] [place] [facility] [address] [id number] [place] [address] 11 Jul, 2011 [facility] [place] [facility] [address] [id number] [place] [address] 10 Jul, 2011 [facility] [place] [facility] [address] [id number] [place] [address] 09 Jul, 2011 [facility] [address] [id number] [place] [address] Jul, [facility] [place] [facility] [address] [id number] [place] [address] 05 Jul, 2011 [facility] [place] [facility] [address] [id number] [place] [address] Jul, [facility] [place] [facility] [address] [id number] [place] [address] Jul, [facility] [place] [facility] [address] [id number] [place] [address] Jul, [facility] [place] [facility] [address] [id number] [place] [address] Jun, [facility] [place] [facility] [address] [id number] [place] [address] Jun, [facility] [place] [facility] [address] [id number] [place] [address] Jun, [facility] [place] [facility] [address] [id number] [place] [address] 16 Jun, 2011 [facility] [place] [facility] [address] [id number] [place] [address] May, [facility] [place] [facility] [address] [id number] [place] [address] 16 May, 2011 [facility] [place] [facility] [address] [id number] [place] [address] May, [facility] [place] [facility] [address] [id number] [place] [address] Apr, [facility] [place] [facility] [address] [id number] [place] [address] 18 Apr, 2011 [facility] [place] [facility] [address] [id number] [place] [address] Apr, [facility] [place] [facility] [address] [id number] [place] [address] 11 Apr, 2011 [facility] [address] [id number] [place] [address] Apr, [facility] [address] [id number] [place] [address] Mar, [facility] [address] [id number] [place] [address] Mar, [facility] [address] [id number] [place] [address] Mar, [facility] [address] [id number] [place] [address] Mar, [facility] [address] [id number] [place] [address] Mar, [facility] [address] [id number] [place] [address] Mar, [facility] [address] [id number] [place] [address] Mar, [facility] [address] [id number] [place] [address] Feb, [facility] [address] [id number] [place] [address] Feb, [facility] [address] [id number] [place] [address] Feb, [facility] [place] [facility] [address] [id number] [place] [address] Feb, [facility] [place] [facility] [address] [id number] [place] [address] 16 Feb, 2011 [facility] [place] [facility] [address] [id number] [place] [address] 14 Feb, 2011 [facility] [place] [facility] [address] [id number] [place] [address] Feb, [facility] [place] [facility] [address] [id number] [place] [address] 31 Jan, 2011 [facility] [place] [facility] [address] [id number] [place] [address] 31 Jan, 2011 [facility] [place] [facility] [address] [id number] [place] [address] 31 Jan, 2011 [facility] [place] [facility] [address] [id number] [place] [address] 18 Jan, 2011 [facility] [place] [facility] [address] [id number] [place] [address] Jan, [facility] [place] [facility] [address] [id number] [place] [address] 17 Jan, 2011 [facility] [place] [facility] [address] [id number] [place] [address] Jun, [facility] [place] [facility] [address] [id number] [place] [address] 30 Mar, 2010 [facility] [place] [facility] [address] [id number] [place] [address] 20 Mar, 2010 [facility] [place] [facility] [address] [id number] [place] [address] 14 Mar, 2010 [facility] [place] [facility] [address] [id number] [place] [address] 14 Mar, 2010 [facility] [place] [facility] [address] [id number] [place] [address] 13 Mar, 2010 [facility] [place] [facility] [address] [id number] [place] [address] 07 Mar, 2010 [facility] [place] [facility] [address] [id number] [place] [address] 02 Mar, 2010 [facility] [place] [facility] [address] [id number] [place] [address] Mar, [facility] [place] [facility] [address] [id number] [place] [address] 30 Feb, 2010 [facility] [address] [id number] [place] [address] 29 Feb, 2010 [facility] [place] [facility] [address] [id number] [place] [address] 17 Feb, 2010 [facility] [address] [id number] [place] [address] 17 Feb, 2010 [facility] [place] [facility] [address] [id number] [place] [address] 16 Feb, 2010 [facility] [address] [id number] [place] [address] 08 Feb, 2010 [facility] [place] [facility] [address] [facility] [id number] [place] [address] Feb, [facility] [place] [facility] [address] [id number] [place] [address] Feb, [facility] [address] [id number] [place] [address] Jan, [facility] [place] [facility] [address] [id number] [place] [address] Jan, [facility] [address] [facility] [id number] [place] [address] Jan, [facility] [place] [facility] [address] [id number] [place] [address] Jan, [facility] [address] [id number] [place] [address] Mar, [facility] [place] [facility] [address] [id number] [place] [address] Mar, [facility] [place] [facility] [address] [id number] [place] [address] Mar, [facility] [place] [facility] [address] [id number] [place] [address] Mar, [facility] [address] [facility] [id number], [place] [address] Mar, [facility] [address] [facility] [id number], [place] [address] Mar, [facility] [address] [facility] [id number], [place] [address] Feb, [facility] [address] [facility] [id number], [place] [address] Feb, [facility] [address] [id number], [place] [address] Jan, [facility] [address] [facility] [id number], [place] [address] Sep, [facility] [address] [id number], [place] [address] May, IMMUNIZATIONS No Known Immunizations SOCIAL HISTORY Never Assessed REASON FOR VISIT Controlled refills PLAN OF CARE VITAL SIGNS MEDICATIONS Medication Instructions Dosage Frequency Start Date End Date Duration Status Soma 350 MG Orally Four times a day 1 tablet as needed 6h Active Xanax 2 MG Orally 4 times a day 1/2 tablet 6h Dec, 28 days Active Thioridazine HCl 100 mg Orally Once a day at hs 2 tablet Active Oxford 10-325 MG Orally every 6 hrs 1 tablet as needed 6h Dec, Active RESULTS No Results PROCEDURES No Known procedures INSTRUCTIONS MEDICATIONS ADMINISTERED No Known Medications MEDICAL (GENERAL) HISTORY Type Description Date Medical History Hypertension Medical History Hyperlipidemia Medical History chronic back pain since age 26 Medical History Anxiety Medical History Hx of Spontaneous Pneumothorax Surgical History right knee arthroscopy Surgical History colon resection Surgical History tonsillectomy Surgical History Left ear surgery Hospitalization History [facility] in [place]- Spontaneous Pneumothorax Hospitalization History [facility]- Colon resection Hospitalization History via [facility] - diarrhea/ couldnt urinate nov 2017
--- OUTSIDE RECORDS SUMMARY | 2018-10-15 01:24 | XMS REPORT ---
Author Author AGUSTÍN PRATER [facility] Address [address] [place] [address] Care Team Providers Care Back Filler Operator Name Role Phone AGUSTÍN PRATER Unavailable PROBLEMS ALLERGIES ENCOUNTERS IMMUNIZATIONS No Known Immunizations SOCIAL HISTORY No smoking Hx information available REASON FOR VISIT PLAN OF CARE VITAL SIGNS MEDICATIONS RESULTS No Results PROCEDURES INSTRUCTIONS MEDICATIONS ADMINISTERED No Known Medications MEDICAL (GENERAL) HISTORY
--- OUTSIDE RECORDS SUMMARY | 2018-10-15 01:25 | XMS REPORT ---
Author Author NANCY MARIE Organization [facility] Address [address] [place] [address] Care Team Providers Care Skein Drier Name Role Phone NANCY MARIE Unavailable PROBLEMS Type Condition ICD9-CM Code XXJ00-DP Code Onset Dates Condition Status SNOMED Code Problem Anxiety F41.9 Active 38913506 Problem Chronic pain G89.29 Active 26356756 Problem Constipation K59.00 Active 84678926 Problem Insomnia G47.00 Active 060778084 Problem HTN (hypertension) I10 Active 91098620 Problem Chronic kidney disease, stage III (moderate) N18.3 Active 061769285 Problem Primary insomnia F51.01 Active 8769495 Problem Thoracic back pain, unspecified back pain laterality, unspecified chronicity M54.6 Active 665787036 Problem Hyperlipidemia E78.5 Active 74236170 Problem Environmental allergies Z91.09 Active 437209629 Problem Vitamin D deficiency E55.9 Active 46796967 ALLERGIES No Information ENCOUNTERS Encounter Location Date Diagnosis [place] [id number] [place] [address] Dec, Diarrhea of presumed infectious origin R19.7 [place] [id number] [place] [address] 19 Dec, 2017 Diarrhea of presumed infectious origin R19.7 [place] [id number] [place] [address] 18 Dec, 2017 Thoracic back pain, unspecified back pain laterality, unspecified chronicity M54.6 [place] [id number] [place] [address] 17 Dec, 2017 [place] [id number] [place] [address] 17 Dec, 2017 Anxiety F41.9 and Thoracic back pain, unspecified back pain laterality, unspecified chronicity M54.6 [place] [address], [place] [address] Dec, Diarrhea of presumed infectious origin R19.7 [place] [address], [place] [address] Dec, [place] [id number] [place] [address] Dec, Anxiety F41.9 and Thoracic back pain, unspecified back pain laterality, unspecified chronicity M54.6 [place] [id number] [place] [address] Dec, Anxiety F41.9 and Thoracic back pain, unspecified back pain laterality, unspecified chronicity M54.6 [facility] [address] [place] [id number] Dec, Diarrhea of presumed infectious origin R19.7 ; Anxiety F41.9 ; Thoracic back pain, unspecified back pain laterality, unspecified chronicity M54.6 and HTN (hypertension) I10 [address] [place] [address] Dec, Anxiety F41.9 [facility] [address] [place] [id number] Dec, Anxiety F41.9 ; Diarrhea of presumed infectious origin R19.7 ; Generalized abdominal pain R10.84 and Localized edema R60.0 [place] [address] [place] [address] Nov, [facility] [address] [place] [id number] Nov, Anxiety F41.9 ; Urinary retention R33.9 ; Diarrhea of presumed infectious origin R19.7 ; Weakness R53.1 ; Acute kidney failure, unspecified N17.9 ; Chronic kidney disease, stage III (moderate) N18.3 and Thoracic back pain, unspecified back pain laterality, unspecified chronicity M54.6 [place] [id number] [place] [address] Oct, Thoracic back pain, unspecified back pain laterality, unspecified chronicity M54.6 and Anxiety F41.9 [place] [id number] [place] [address] Sep, Thoracic back pain, unspecified back pain laterality, unspecified chronicity M54.6 and Anxiety F41.9 [place] [address] [address] Sep, Thoracic back pain, unspecified back pain laterality, unspecified chronicity M54.6 ; Anxiety F41.9 and Encounter for medication monitoring Z51.81 [place] [id number] [place] [address] August, [place] [address] [address] August, Thoracic back pain, unspecified back pain laterality, unspecified chronicity M54.6 and Anxiety F41.9 [place] [id number] [place] [address] August, Hyperlipidemia E78.5 and HTN (hypertension) I10 [place] [id number] [place] [address] August, [place] [id number] [place] [address] August, Medicare welcome exam Z00.00 ; Chronic kidney failure N18.9 ; Anxiety F41.9 ; Chronic pain G89.29 ; Insomnia G47.00 ; Hyperlipidemia E78.5 ; HTN (hypertension) I10 and Thoracic back pain, unspecified back pain laterality, unspecified chronicity M54.6 [place] [id number] [place] [address] Jul, [place] [id number] [place] [address] Jul, [place] [id number] [address] Jul, [place] [id number] [place] [address] Jul, Anxiety F41.9 [place] [id number] [place] [address] Jul, Thoracic back pain, unspecified back pain laterality, unspecified chronicity M54.6 and Anxiety F41.9 [place] [id number] [place] [address] Jun, Thoracic back pain, unspecified back pain laterality, unspecified chronicity M54.6 and Anxiety F41.9 [place] [id number] [place] [address] 12 May, 2017 Thoracic back pain, unspecified back pain laterality, unspecified chronicity M54.6 and Anxiety F41.9 [place] [id number] [place] [address] Apr, Thoracic back pain, unspecified back pain laterality, unspecified chronicity M54.6 and Anxiety F41.9 [place] [id number] [place] [address] Mar, [place] [id number] [place] [address] 14 Mar, 2017 Thoracic back pain, unspecified back pain laterality, unspecified chronicity M54.6 and Anxiety F41.9 [place] [address] [place] [address] 14 Mar, 2017 Thoracic back pain, unspecified back pain laterality, unspecified chronicity M54.6 ; HTN (hypertension) I10 ; Hyperlipidemia E78.5 and Anxiety F41.9 [place] [address] [place] [address] Feb, Thoracic back pain, unspecified back pain laterality, unspecified chronicity M54.6 and Anxiety F41.9 [facility] [address] [place] [address] Nov, [facility] [id number] [place] [address] Oct, [facility] [id number] [place] [address] Oct, Thoracic back pain, unspecified back pain laterality, unspecified chronicity M54.6 [facility] [id number] [place] [address] Oct, HTN (hypertension) I10 ; Constipation K59.00 ; Hyperlipidemia E78.5 ; Thoracic back pain, unspecified back pain laterality, unspecified chronicity M54.6 ; Chronic pain G89.29 ; Anxiety F41.9 ; Chronic kidney failure N18.9 ; Environmental allergies Z91.09 ; Vitamin D deficiency E55.9 and Primary insomnia F51.01 [facility] [id number] [place] [address] Sep, Anxiety F41.9 [facility] [id number] [place] [address] Sep, [facility] [id number] [place] [address] August, Anxiety F41.9 [facility] [id number] [place] [address] August, [facility] [id number] [place] [address] Jul, Anxiety F41.9 [facility] [id number] [place] [address] Jul, [facility] [address] [place] [address] Jun, Anxiety F41.9 [facility] [id number] [place] [address] Jun, [facility] [address], [place] [address] May, [facility] [address] [address] May, [facility] [address], [place] [address] May, [facility] [id number] [place] [address] Apr, [facility] [address] [place] [address] Apr, [facility] [id number] [place] [address] Apr, Anxiety F41.9 [facility] [id number] [place] [address] Apr, Anxiety F41.9 [facility] [address] [address] Apr, [facility] [address] [place] [address] Mar, HTN (hypertension) I10 ; Tremor R25.1 ; Hypercholesterolemia E78.0 ; Constipation K59.00 ; Chronic pain G89.29 ; Hyperlipidemia E78.5 ; Insomnia G47.00 ; Anxiety F41.9 and Thoracic back pain, unspecified back pain laterality, unspecified chronicity M54.6 [facility] [address], [place] [address] Mar, Tremor R25.1 ; HTN (hypertension) I10 ; Hypercholesterolemia E78.0 ; Constipation K59.00 ; Chronic pain G89.29 ; Hyperlipidemia E78.5 ; Insomnia G47.00 ; Anxiety F41.9 and Thoracic back pain, unspecified back pain laterality, unspecified chronicity M54.6 [facility] [address], [place] [address] Mar, [facility] [address] [facility] [id number] [place] [address] Mar, [facility] [address] [facility] [id number] [place] [address] Feb, [facility] [address] [facility] [id number] [place] [address] Jan, [facility] [address] [facility] [id number] [place] [address], [place] [address] Jan, [facility] [address] [facility] [id number] [place] [address] Dec, [facility] [address] [facility] [id number] [place] [address] Nov, [facility] [address] [address] Nov, [facility] [address] [place] [address] Oct, Anxiety F41.9 [facility] [address] [facility] [id number] [address] Oct, Chronic pain G89.29 [facility] [address], [place] [address] 24 Sep, 2015 [facility] [address] [facility] [id number], [place] [address] Sep, [facility] [address] [facility] [id number], [place] [address] Sep, [facility] [address] [facility] [id number], [place] [address] Sep, [facility] [address] [facility] [id number], [place] [address] 16 Sep, 2015 Chronic pain syndrome G89.4 [facility] [address] [facility] [id number], [place] [address] Sep, HTN (hypertension) I10 ; Chronic pain G89.29 ; Hypercholesterolemia E78.0 ; Chronic kidney failure N18.9 ; Constipation, unspecified constipation type K59.00 ; Anxiety F41.9 and Thoracic back pain, unspecified back pain laterality, unspecified chronicity M54.6 [facility] [id number] [place] [address] August, Chronic pain syndrome G89.4 [facility] [address] [address] August, Chronic pain syndrome G89.4 [facility] [address] [address] Jul, Anxiety disorder, unspecified F41.9 and Chronic pain syndrome G89.4 [facility] [address] [address] Jul, Insomnia, unspecified G47.00 and Chronic pain syndrome G89.4 [facility] [address] [place] [address] Jul, Allergic rhinitis J30.9 [facility] [address] [address] Jul, Constipation, unspecified K59.00 [facility] [address] [place] [address] Jul, [facility] [address] [place] [address] Jun, [facility] [address] [place] [address] Jun, [facility] [address] [address] Jun, [facility] [id number] [place] [address] Jun, [facility] [address] [address] Jun, [facility] [id number] [place] [address] Jun, [facility] [id number] [place] [address] May, [facility] [id number] [place] [address] May, [facility] [address] [place] [address] May, Anxiety F41.9 ; Insomnia G47.00 ; Hyperlipidemia E78.5 ; Chronic pain G89.29 ; HTN (hypertension) I10 ; Environmental allergies V15.09 and Constipation 564.00 [facility] [address] [place] [address] Apr, [facility] [id number] [place] [address] Apr, [facility] [id number] [place] [address] Apr, [facility] [id number] [place] [address] Mar, [facility] [id number] [place] [address] Mar, [facility] [id number] [place] [address] Mar, [facility] [id number] [place] [address] Feb, [facility] [address] [place] [address] Feb, [facility] [id number] [place] [address] Feb, [facility] [id number] [place] [address] Jan, HTN (hypertension) I10 ; Constipation K59.00 ; Chronic pain G89.29 ; Hyperlipidemia E78.5 ; Hypercholesterolemia E78.0 ; Insomnia G47.00 and Anxiety F41.9 [place] [address] [place] [address] Jan, [address] [address] Dec, [place] [address] [address] Nov, [address] [address] Oct, Chronic kidney disease, unspecified 585.9 ; Chronic pain syndrome 338.4 ; Hyperlipidemia 272.4 and Essential hypertension 401.[address] [address] Oct, Chronic kidney disease 585.9 [place] [id number] [place] [address] Oct, [address] [address] Oct, Chronic kidney disease, unspecified 585.9 ; Hypercalcemia 275.42 ; Hyperlipidemia 272.4 ; Essential hypertension 401.9 ; Chronic pain syndrome 338.4 ; Insomnia 780.52 ; Constipation 564.00 ; Environmental allergies V15.09 and Anxiety 300.00 [place] [id number] [place] [address] Oct, Chronic kidney disease 585.[address] [address] Oct, [address] [address] Oct, Chronic kidney disease 585.9 and Hyperlipidemia 272.[address] [address] 10 Oct, 2014 [facility] [address] [id number] [place] [address] 10 Oct, 2014 [facility] [address] [id number] [place] [address] 18 Sep, 2014 [facility] [address] [facility] [id number] [place] [address] 15 Sep, 2014 [facility] [address] [id number] [place] [address] Sep, Chronic kidney disease 585.9 and Hyperlipidemia 272.4 [facility] [address] [id number] [place] [address] Sep, [facility] [address] [facility] [id number] [place] [address] August, [facility] [address] [facility] [id number] [place] [address] August, [facility] [address] [facility] [id number] [place] [address] 14 Jul, 2014 [facility] [address] [id number] [place] [address] Jul, [facility] [address] [facility] [id number] [place] [address] Jun, [facility] [address] [id number] [place] [address] Jun, [facility] [place] [facility] [address] [id number] [place] [address] 16 Jun, 2014 [facility] [place] [facility] [address] [id number] [place] [address] 16 Jun, 2014 [facility] [place] [facility] [address] [facility] [id number] [place] [address] Jun, [facility] [place] [facility] [address] [facility] [id number] [place] [address] Jun, [facility] [place] [facility] [address] [id number] [place] [address] Jun, [facility] [place] [facility] [address] [id number] [place] [address] Jun, [facility] [place] [facility] [address] [id number] [place] [address] May, [facility] [place] [facility] [address] [id number] [place] [address] May, [facility] [place] [facility] [address] [id number] [place] [address] May, [facility] [place] [facility] [address] [id number] [place] [address] May, [facility] [place] [facility] [address] [id number] [place] [address] Apr, [facility] [place] [facility] [address] [id number] [place] [address] Apr, [facility] [place] [facility] [address] [id number] [place] [address] Apr, [facility] [place] [facility] [address] [id number] [place] [address] Apr, [facility] [place] [facility] [address] [id number] [place] [address] Apr, [facility] [place] [facility] [address] [id number], [place] [address] Apr, [facility] [place] [facility] [address] [id number] [place] [address] Apr, [facility] [place] [facility] [address] [id number] [place] [address] Apr, [facility] [place] [facility] [address] [id number] [place] [address] Apr, [facility] [place] [facility] [address] [id number] [place] [address] Apr, [facility] [place] [facility] [address] [id number] [place] [address] Apr, [facility] [place] [facility] [address] [id number] [place] [address] Mar, [facility] [place] [facility] [address] [id number] [place] [address] Mar, [facility] [place] [facility] [address] [id number] [place] [address] Feb, [facility] [place] [facility] [address] [id number] [place] [address] Feb, [facility] [place] [facility] [address] [id number] [place] [address] Feb, [facility] [place] [facility] [address] [id number] [place] [address] Feb, [facility] [place] [facility] [address] [id number] [place] [address] Feb, [facility] [place] [facility] [address] [id number] [place] [address] Feb, [facility] [place] [facility] [address] [facility] [id number] [place] [address] Feb, [facility] [place] [facility] [address] [id number] [place] [address] Feb, [facility] [place] [facility] [address] [id number], [place] [address] Feb, [facility] [place] [facility] [address] [id number] [place] [address] Feb, [facility] [place] [facility] [address] [id number] [place] [address] Jan, [facility] [place] [facility] [address] [id number] [place] [address] Jan, [facility] [place] [facility] [address] [id number] [place] [address] Jan, [facility] [place] [facility] [address] [id number] [place] [address] Jan, [facility] [place] [facility] [address] [id number] [place] [address] Jan, [facility] [place] [facility] [address] [id number] [place] [address] 24 Jan, 2014 [facility] [place] [facility] [address] [id number] [place] [address] Jan, [facility] [place] [facility] [address] [id number] [place] [address] 17 Jan, 2014 [facility] [place] [facility] [address] [id number] [place] [address] 16 Jan, 2014 [facility] [place] [facility] [address] [id number] [place] [address] Jan, [facility] [place] [facility] [address] [id number] [place] [address] 06 Jan, 2014 [facility] [place] [facility] [address] [id number] [place] [address] 26 Dec, 2013 [facility] [place] [facility] [address] [id number] [place] [address] 26 Dec, 2013 [facility] [place] [facility] [address] [id number] [place] [address] 19 Dec, 2013 [facility] [place] [facility] [address] [id number] [place] [address] 19 Dec, 2013 [facility] [place] [facility] [address] [id number] [place] [address] 18 Dec, 2013 [facility] [place] [facility] [address] [id number] [place] [address] 18 Dec, 2013 [facility] [place] [facility] [address] [id number] [place] [address] Dec, [facility] [place] [facility] [address] [id number] [place] [address] Dec, [facility] [place] [facility] [address] [id number] [place] [address] Nov, [facility] [place] [facility] [address] [id number] [place] [address] Nov, [facility] [place] [facility] [address] [id number] [place] [address] Nov, [facility] [place] [facility] [address] [id number] [place] [address] Nov, [facility] [place] [facility] [address] [id number] [place] [address] Nov, [facility] [place] [facility] [address] [id number] [place] [address] Nov, [facility] [place] [facility] [address] [id number] [place] [address] Nov, [facility] [place] [facility] [address] [id number] [place] [address] Nov, [facility] [place] [facility] [address] [id number] [place] [address] Oct, [facility] [place] [facility] [address] [id number] [place] [address] Oct, [facility] [place] [facility] [address] [id number] [place] [address] Oct, [facility] [place] [facility] [address] [id number] [place] [address] Oct, [facility] [place] [facility] [address] [id number] [place] [address] Sep, [facility] [place] [facility] [address] [id number] [place] [address] Sep, [facility] [place] [facility] [address] [id number] [place] [address] Sep, [facility] [address] [id number] [place] [address] Sep, [facility] [address] [id number] [place] [address] Sep, [facility] [address] [id number] [place] [address] Sep, [facility] [place] [facility] [address] [id number] [place] [address] Sep, [facility] [address] [id number] [place] [address] Sep, [facility] [address] [id number] [place] [address] August, [facility] [address] [id number] [place] [address] August, [facility] [address] [id number] [place] [address] August, [facility] [address] [id number] [place] [address] August, [facility] [address] [id number] [place] [address] August, [facility] [place] [facility] [address] [id number] [place] [address] August, [facility] [place] [facility] [address] [id number] [place] [address] August, [facility] [place] [facility] [address] [id number] [place] [address] August, [facility] [place] [facility] [address] [id number] [place] [address] August, [facility] [place] [facility] [address] [id number] [place] [address] August, [facility] [place] [facility] [address] [id number] [place] [address] Jul, [facility] [place] [facility] [address] [id number] [place] [address] Jul, [facility] [place] [facility] [address] [id number] [place] [address] Jul, [facility] [place] [facility] [address] [id number] [place] [address] Jul, [facility] [place] [facility] [address] [id number] [place] [address] Jul, [facility] [place] [facility] [address] [id number] [place] [address] Jul, [facility] [place] [facility] [address] [id number] [place] [address] Jul, [facility] [place] [facility] [address] [id number] [place] [address] Jul, [facility] [place] [facility] [address] [id number] [place] [address] Jun, [facility] [place] [facility] [address] [id number] [place] [address] Jun, [facility] [place] [facility] [address] [id number] [place] [address] Jun, [facility] [place] [facility] [address] [id number] [place] [address] Jun, [facility] [place] [facility] [address] [id number] [place] [address] Jun, [facility] [place] [facility] [address] [id number] [place] [address] Jun, [facility] [place] [facility] [address] [id number] [place] [address] May, [facility] [place] [facility] [address] [id number] [place] [address] May, [facility] [place] [facility] [address] [id number] [place] [address] May, [facility] [place] [facility] [address] [id number] [place] [address] May, [facility] [place] [facility] [address] [id number] [place] [address] May, [facility] [place] [facility] [address] [id number] [place] [address] May, [facility] [place] [facility] [address] [id number] [place] [address] May, [facility] [place] [facility] [address] [id number] [place] [address] Apr, [facility] [place] [facility] [address] [id number] [place] [address] Apr, [facility] [place] [facility] [address] [id number] [place] [address] Apr, [facility] [place] [facility] [address] [id number] [place] [address] Apr, [facility] [place] [facility] [address] [id number] [place] [address] Apr, [facility] [place] [facility] [address] [id number] [place] [address] Apr, [facility] [place] [facility] [address] [id number] [place] [address] Mar, [facility] [place] [facility] [address] [id number] [place] [address] Mar, [facility] [place] [facility] [address] [id number] [place] [address] Mar, [facility] [place] [facility] [address] [id number] [place] [address] Mar, [facility] [place] [facility] [address] [id number] [place] [address] Mar, [facility] [address] [id number] [place] [address] Mar, [facility] [address] [id number] [place] [address] Mar, [facility] [address] [id number] [place] [address] Mar, [facility] [address] [id number] [place] [address] Mar, [facility] [address] [id number] [place] [address] Mar, [facility] [address] [id number] [place] [address] Feb, [facility] [address] [id number] [place] [address] Feb, [facility] [address] [id number] [place] [address] Feb, [facility] [address] [id number] [place] [address] Feb, [facility] [address] [id number] [place] [address] 14 Feb, 2013 [facility] [place] [facility] [address] [id number], [place] [address] 14 Feb, 2013 [facility] [place] [facility] [address] [id number] [place] [address] Feb, [facility] [place] [facility] [address] [id number] [place] [address] Feb, [facility] [place] [facility] [address] [id number] [place] [address] 08 Feb, 2013 [facility] [place] [facility] [address] [id number] [address] Feb, [facility] [place] [facility] [address] [id number] [place] [address] Jan, [facility] [place] [facility] [address] [id number] [place] [address] Jan, [facility] [place] [facility] [address] [id number] [place] [address] Jan, [facility] [place] [facility] [address] [id number] [place] [address] Jan, [facility] [place] [facility] [address] [id number] [place] [address] Jan, [facility] [place] [facility] [address] [id number] [place] [address] Jan, [facility] [place] [facility] [address] [id number] [place] [address] Jan, [facility] [place] [facility] [address] [id number] [place] [address] Jan, [facility] [place] [facility] [address] [id number] [place] [address] Jan, [facility] [place] [facility] [address] [id number] [place] [address] Dec, [facility] [place] [facility] [address] [id number], [place] [address] Dec, [facility] [place] [facility] [address] [id number], [place] [address] 21 Dec, 2012 [facility] [place] [facility] [address] [id number] [place] [address] 13 Dec, 2012 [facility] [place] [facility] [address] [id number] [place] [address] Nov, [facility] [place] [facility] [address] [id number] [place] [address] Nov, [facility] [place] [facility] [address] [id number] [place] [address] Nov, [facility] [address] [id number] [place] [address] Nov, [facility] [address] [id number] [place] [address] Nov, [facility] [address] [id number] [place] [address] Nov, [facility] [address] [id number] [place] [address] Oct, [facility] [address] [id number] [place] [address] Oct, [facility] [address] [id number] [place] [address] Oct, [facility] [address] [id number] [place] [address] Oct, [facility] [address] [id number] [place] [address] Sep, [facility] [address] [id number] [place] [address] Sep, [facility] [address] [id number] [place] [address] Sep, [facility] [address] [id number] [place] [address] Sep, [facility] [address] [id number] [place] [address] Sep, [facility] [place] [facility] [address] [id number] [place] [address] August, [facility] [address] [id number] [place] [address] August, [facility] [address] [id number] [place] [address] Jul, [facility] [address] [id number] [place] [address] Jul, [facility] [place] [facility] [address] [id number] [place] [address] 15 Jul, 2012 [facility] [place] [facility] [address] [id number] [place] [address] Jul, [facility] [place] [facility] [address] [id number] [place] [address] Jul, [facility] [address] [id number] [place] [address] Jun, [facility] [place] [facility] [address] [id number] [place] [address] Jun, [facility] [place] [facility] [address] [id number] [place] [address] Jun, [facility] [place] [facility] [address] [id number] [place] [address] Jun, [facility] [place] [facility] [address] [id number] [place] [address] Jun, [facility] [place] [facility] [address] [id number] [place] [address] 28 May, 2012 [facility] [place] [facility] [address] [id number] [place] [address] May, [facility] [place] [facility] [address] [id number], [place] [address] May, [facility] [place] [facility] [address] [id number] [place] [address] May, [facility] [place] [facility] [address] [id number] [place] [address] 20 May, 2012 [facility] [place] [facility] [address] [id number] [place] [address] 14 May, 2012 [facility] [place] [facility] [address] [id number] [place] [address] 13 May, 2012 [facility] [address] [id number] [place] [address] 08 May, 2012 [facility] [address] [id number] [place] [address] May, [facility] [address] [id number] [place] [address] Apr, [facility] [address] [id number] [place] [address] Apr, [facility] [address] [id number] [place] [address] Apr, [facility] [address] [id number] [place] [address] Apr, [facility] [address] [id number] [place] [address] Apr, [facility] [address] [id number] [place] [address] Mar, [facility] [address] [id number] [place] [address] Mar, [facility] [address] [id number] [place] [address] Mar, [facility] [address] [id number] [place] [address] Mar, [facility] [address] [id number] [place] [address] Mar, [facility] [address] [id number] [place] [address] Mar, [facility] [address] [id number] [place] [address] Mar, [facility] [address] [id number] [place] [address] Mar, [facility] [place] [facility] [address] [id number] [place] [address] Mar, [facility] [place] [facility] [address] [id number] [place] [address] Mar, [facility] [place] [facility] [address] [id number] [place] [address] 30 Feb, 2012 [facility] [place] [facility] [address] [id number] [place] [address] 30 Feb, 2012 [facility] [place] [facility] [address] [id number] [place] [address] Feb, [facility] [place] [facility] [address] [id number] [place] [address] Feb, [facility] [place] [facility] [address] [id number] [place] [address] Feb, [facility] [place] [facility] [address] [id number] [place] [address] Feb, [facility] [place] [facility] [address] [id number] [place] [address] Feb, [facility] [place] [facility] [address] [id number] [place] [address] Feb, [facility] [place] [facility] [address] [id number] [place] [address] 16 Feb, 2012 [facility] [place] [facility] [address] [id number], [place] [address] 16 Feb, 2012 [facility] [place] [facility] [address] [id number] [place] [address] 13 Feb, 2012 [facility] [place] [facility] [address] [id number] [place] [address] 13 Feb, 2012 [facility] [place] [facility] [address] [id number] [place] [address] 12 Feb, 2012 [facility] [place] [facility] [address] [id number] [place] [address] Feb, [facility] [place] [facility] [address] [id number] [place] [address] Feb, [facility] [place] [facility] [address] [id number] [place] [address] Feb, [facility] [place] [facility] [address] [id number] [place] [address] Feb, [facility] [place] [facility] [address] [id number] [place] [address] Feb, [facility] [place] [facility] [address] [id number] [place] [address] Jan, [facility] [place] [facility] [address] [id number] [place] [address] Jan, [facility] [place] [facility] [address] [id number] [place] [address] Jan, [facility] [place] [facility] [address] [id number] [place] [address] Jan, [facility] [place] [facility] [address] [id number] [place] [address] Jan, [facility] [place] [facility] [address] [facility] [id number] [place] [address] Jan, [facility] [place] [facility] [address] [facility] [id number] [place] [address] Jan, [facility] [place] [facility] [address] [id number], [place] [address] Jan, [facility] [place] [facility] [address] [id number] [place] [address] Jan, [facility] [place] [facility] [address] [facility] [id number], [place] [address] Jan, [facility] [place] [facility] [address] [facility] [id number], [place] [address] 24 Dec, 2011 [facility] [place] [facility] [address] [id number] [place] [address] Dec, [facility] [place] [facility] [address] [id number] [place] [address] Dec, [facility] [place] [facility] [address] [id number] [place] [address] Dec, [facility] [place] [facility] [address] [id number] [place] [address] Nov, [facility] [place] [facility] [address] [id number] [place] [address] Nov, [facility] [place] [facility] [address] [id number] [place] [address] Nov, [facility] [place] [facility] [address] [id number] [place] [address] Nov, [facility] [place] [facility] [address] [id number] [place] [address] Nov, [facility] [place] [facility] [address] [id number] [place] [address] Nov, [facility] [place] [facility] [address] [id number] [place] [address] Oct, [facility] [place] [facility] [address] [id number] [place] [address] Oct, [facility] [place] [facility] [address] [id number] [place] [address] Oct, [facility] [place] [facility] [address] [id number] [place] [address] Oct, [facility] [place] [facility] [address] [id number] [place] [address] Oct, [facility] [place] [facility] [address] [id number] [place] [address] Sep, [facility] [place] [facility] [address] [id number] [place] [address] Sep, [facility] [place] [facility] [address] [id number] [place] [address] Sep, [facility] [place] [facility] [address] [id number] [place] [address] Sep, [facility] [place] [facility] [address] [id number] [place] [address] Sep, [facility] [place] [facility] [address] [id number] [place] [address] August, [facility] [place] [facility] [address] [id number] [place] [address] August, [facility] [place] [facility] [address] [id number] [place] [address] August, [facility] [place] [facility] [address] [id number] [place] [address] August, [facility] [place] [facility] [address] [id number] [place] [address] Jul, [facility] [place] [facility] [address] [id number] [place] [address] 24 Jul, 2011 [facility] [place] [facility] [address] [id number] [place] [address] Jul, [facility] [place] [facility] [address] [id number] [place] [address] 18 Jul, 2011 [facility] [place] [facility] [address] [id number], [place] [address] 18 Jul, 2011 [facility] [place] [facility] [address] [id number] [place] [address] 12 Jul, 2011 [facility] [place] [facility] [address] [id number] [place] [address] 11 Jul, 2011 [facility] [place] [facility] [address] [id number] [place] [address] 10 Jul, 2011 [facility] [place] [facility] [address] [id number] [place] [address] 09 Jul, 2011 [facility] [address] [id number] [place] [address] Jul, [facility] [address] [id number] [place] [address] 05 Jul, 2011 [facility] [address] [id number] [place] [address] Jul, [facility] [address] [id number] [place] [address] Jul, [facility] [address] [id number] [place] [address] Jul, [facility] [address] [id number] [place] [address] Jun, [facility] [address] [id number] [place] [address] Jun, [facility] [address] [id number] [place] [address] Jun, [facility] [address] [id number] [place] [address] 16 Jun, 2011 [facility] [address] [id number] [place] [address] May, [facility] [address] [id number] [place] [address] 16 May, 2011 [facility] [address] [id number] [place] [address] May, [facility] [place] [facility] [address] [id number] [place] [address] Apr, [facility] [address] [id number] [place] [address] 18 Apr, 2011 [facility] [address] [id number] [place] [address] Apr, [facility] [place] [facility] [address] [id number] [place] [address] Apr, [facility] [place] [facility] [address] [id number] [place] [address] Apr, [facility] [place] [facility] [address] [id number] [place] [address] Mar, [facility] [place] [facility] [address] [id number] [place] [address] Mar, [facility] [place] [facility] [address] [id number] [place] [address] Mar, [facility] [place] [facility] [address] [id number] [place] [address] Mar, [facility] [place] [facility] [address] [id number] [place] [address] Mar, [facility] [place] [facility] [address] [id number] [place] [address] Mar, [facility] [place] [facility] [address] [id number] [place] [address] Mar, [facility] [place] [facility] [address] [id number] [place] [address] 29 Feb, 2011 [facility] [place] [facility] [address] [id number] [place] [address] Feb, [facility] [place] [facility] [address] [id number] [place] [address] Feb, [facility] [place] [facility] [address] [id number] [place] [address] Feb, [facility] [place] [facility] [address] [id number] [place] [address] 16 Feb, 2011 [facility] [place] [facility] [address] [id number] [place] [address] 14 Feb, 2011 [facility] [place] [facility] [address] [id number] [place] [address] 10 Feb, 2011 [facility] [place] [facility] [address] [id number] [place] [address] 31 Jan, 2011 [facility] [place] [facility] [address] [id number] [place] [address] 31 Jan, 2011 [facility] [place] [facility] [address] [id number] [place] [address] 31 Jan, 2011 [facility] [place] [facility] [address] [id number] [place] [address] 18 Jan, 2011 [facility] [place] [facility] [address] [id number] [place] [address] 17 Jan, 2011 [facility] [place] [facility] [address] [id number] [place] [address] 17 Jan, 2011 [facility] [address] [id number] [place] [address] Jun, [facility] [place] [facility] [address] [id number] [place] [address] 30 Mar, 2010 [facility] [place] [facility] [address] [id number] [place] [address] 20 Mar, 2010 [facility] [place] [facility] [address] [id number] [place] [address] 14 Mar, 2010 [facility] [place] [facility] [address] [id number] [place] [address] 14 Mar, 2010 [facility] [place] [facility] [address] [id number] [place] [address] 13 Mar, 2010 [facility] [place] [facility] [address] [id number] [place] [address] 07 Mar, 2010 [facility] [place] [facility] [address] [id number] [place] [address] 02 Mar, 2010 [facility] [place] [facility] [address] [id number] [place] [address] Mar, [facility] [place] [facility] [address] [id number] [place] [address] 30 Feb, 2010 [facility] [place] [facility] [address] [id number] [place] [address] 29 Feb, 2010 [facility] [place] [facility] [address] [id number] [place] [address] 17 Feb, 2010 [facility] [place] [facility] [address] [id number] [place] [address] 17 Feb, 2010 [facility] [place] [facility] [address] [id number] [place] [address] 16 Feb, 2010 [facility] [place] [facility] [address] [id number] [place] [address] 08 Feb, 2010 [facility] [place] [facility] [address] [id number] [place] [address] Feb, [facility] [place] [facility] [address] [id number] [place] [address] Feb, [facility] [place] [facility] [address] [id number] [place] [address] Jan, [facility] [place] [facility] [address] [id number] [place] [address] Jan, [facility] [place] [facility] [address] [id number] [place] [address] Jan, [facility] [place] [facility] [address] [id number] [place] [address] Jan, [facility] [place] [facility] [address] [id number] [place] [address] Mar, [facility] [place] [facility] [address] [id number] [place] [address] Mar, [facility] [place] [facility] [address] [id number] [place] [address] Mar, [facility] [place] [facility] [address] [id number] [place] [address] Mar, [facility] [address] [facility] [id number] [address] 14 Mar, 2009 [facility] [address] [id number] [address] Mar, [facility] [address] [id number] [address] Feb, [facility] [id number], [place] [address] Feb, [facility] [address] [id number] [address] Jan, [facility] [id number] [place] [address] Sep, [facility] [address] [id number], [place] [address] May, IMMUNIZATIONS No Known Immunizations SOCIAL HISTORY Never Assessed REASON FOR VISIT Medication refill request PLAN OF CARE VITAL SIGNS MEDICATIONS Medication Instructions Dosage Frequency Start Date End Date Duration Status Saxton 10-325 MG Orally every 6 hrs 1 tablet as needed 6h Dec, Active Fluticasone Propionate 50 mcg/act SPRAY 2 SPRAYS IN EACH NOSTRIL DAILY 90 Active Amlodipine Besylate 10 TAKE 1 TABLET BY MOUTH ONCE DAILY 90 Active Alprazolam 2 MG Orally 4 times a day as needed take 0.5 tablet 28 days Active Thioridazine HCl 100 mg Orally Once a day at hs 2 tablet Active Perphenazine-Amitriptyline 2-25 mg TAKE 6 TABLETS BY MOUTH DAILY 30 Active Tizanidine HCl 4 MG Orally Three times a day 1 tablet as needed 8h 30 Active Flomax 0.4 MG Orally Once a day 1 capsule 24h Dec, 30 day(s) Active RESULTS No Results PROCEDURES No Known procedures INSTRUCTIONS MEDICATIONS ADMINISTERED No Known Medications MEDICAL (GENERAL) HISTORY Type Description Date Medical History Hypertension Medical History Hyperlipidemia Medical History chronic back pain since age 26 Medical History Anxiety Medical History Hx of Spontaneous Pneumothorax Surgical History right knee arthroscopy Surgical History colon resection Surgical History tonsillectomy Surgical History Left ear surgery Hospitalization History [facility] in [place]- Spontaneous Pneumothorax Hospitalization History [facility]- Colon resection Hospitalization History [facility] - diarrhea/ couldnt urinate nov 2017
--- OUTSIDE RECORDS SUMMARY | 2018-10-15 01:26 | XMS REPORT ---
Author Author AGUSTÍN PRATER Organization [facility] Address [address] [place] [address] Care Team Providers Care Expert Witness Name Role Phone AGUSTÍN PRATER Unavailable PROBLEMS Type Condition ICD9-CM Code TWJ80-RP Code Onset Dates Condition Status SNOMED Code Problem Anxiety F41.9 Active 16496294 Problem Chronic pain G89.29 Active 86706170 Problem Constipation K59.00 Active 29658424 Problem Insomnia G47.00 Active 113333112 Problem HTN (hypertension) I10 Active 06376177 Problem Chronic kidney disease, stage III (moderate) N18.3 Active 685144136 Problem Primary insomnia F51.01 Active 1169674 Problem Thoracic back pain, unspecified back pain laterality, unspecified chronicity M54.6 Active 522487013 Problem Hyperlipidemia E78.5 Active 70334100 Problem Environmental allergies Z91.09 Active 871155554 Problem Vitamin D deficiency E55.9 Active 36910615 ALLERGIES No Information ENCOUNTERS Encounter Location Date Diagnosis [place] [id number] [place] [address] Dec, Diarrhea of presumed infectious origin R19.7 [place] [address] [place] [id number] [place] [address] Dec, Diarrhea of presumed infectious origin R19.7 [place] [address] [place] [id number] [place] [address] 18 Dec, 2017 Thoracic back pain, unspecified back pain laterality, unspecified chronicity M54.6 [place] [address] [place] [id number] [place] [address] Dec, [place] [address] [place] [id number] [place] [address] Dec, Anxiety F41.9 and Thoracic back pain, unspecified back pain laterality, unspecified chronicity M54.6 [place] [address] [address] Dec, Diarrhea of presumed infectious origin R19.7 [place] [address] [address] Dec, [place] [id number] [place] [address] Dec, Anxiety F41.9 and Thoracic back pain, unspecified back pain laterality, unspecified chronicity M54.6 [place] [address] [place] [id number] [place] [address] Dec, Anxiety F41.9 and Thoracic back pain, unspecified back pain laterality, unspecified chronicity M54.6 [facility] [employer] [address] [place] [id number] Dec, Diarrhea of presumed infectious origin R19.7 ; Anxiety F41.9 ; Thoracic back pain, unspecified back pain laterality, unspecified chronicity M54.6 and HTN (hypertension) I10 [address] [place] [address] Dec, Anxiety F41.9 [facility] [employer] [address] [place] [id number] Dec, Anxiety F41.9 ; Diarrhea of presumed infectious origin R19.7 ; Generalized abdominal pain R10.84 and Localized edema R60.0 [place] [address] [place] [address] Nov, [facility] [employer] [address] [place] [id number] Nov, Anxiety F41.9 ; Urinary retention R33.9 ; Diarrhea of presumed infectious origin R19.7 ; Weakness R53.1 ; Acute kidney failure, unspecified N17.9 ; Chronic kidney disease, stage III (moderate) N18.3 and Thoracic back pain, unspecified back pain laterality, unspecified chronicity M54.6 [place] [address] [place] [address] Oct, Thoracic back pain, unspecified back pain laterality, unspecified chronicity M54.6 and Anxiety F41.9 [place] [address] [place] [id number] [place] [address] Sep, Thoracic back pain, unspecified back pain laterality, unspecified chronicity M54.6 and Anxiety F41.9 [place] [address] [address] Sep, Thoracic back pain, unspecified back pain laterality, unspecified chronicity M54.6 ; Anxiety F41.9 and Encounter for medication monitoring Z51.81 [place] [address] [address] August, [place] [address] [address] August, Thoracic back pain, unspecified back pain laterality, unspecified chronicity M54.6 and Anxiety F41.9 [place] [address] [place] [id number] [place] [address] August, Hyperlipidemia E78.5 and HTN (hypertension) I10 [place] [address] [place] [id number] [place] [address] August, [place] [address] [place] [id number] [place] [address] August, Medicare welcome exam Z00.00 ; Chronic kidney failure N18.9 ; Anxiety F41.9 ; Chronic pain G89.29 ; Insomnia G47.00 ; Hyperlipidemia E78.5 ; HTN (hypertension) I10 and Thoracic back pain, unspecified back pain laterality, unspecified chronicity M54.6 [place] [address] [place] [id number] [place] [address] Jul, [place] [address] [place] [id number] [place] [address] Jul, [place] [address] [place] [address] [address] Jul, [place] [address] [place] [id number] [place] [address] Jul, Anxiety F41.9 [place] [address] [place] [id number] [place] [address] Jul, Thoracic back pain, unspecified back pain laterality, unspecified chronicity M54.6 and Anxiety F41.9 [place] [address] [place] [id number] [place] [address] Jun, Thoracic back pain, unspecified back pain laterality, unspecified chronicity M54.6 and Anxiety F41.9 [place] [address] [place] [id number] [place] [address] 12 May, 2017 Thoracic back pain, unspecified back pain laterality, unspecified chronicity M54.6 and Anxiety F41.9 [place] [address] [place] [id number] [place] [address] Apr, Thoracic back pain, unspecified back pain laterality, unspecified chronicity M54.6 and Anxiety F41.9 [place] [address] [place] [id number] [place] [address] Mar, [place] [address] [place] [id number] [place] [address] Mar, Thoracic back pain, unspecified back pain laterality, unspecified chronicity M54.6 and Anxiety F41.9 [place] [address] [place] [id number] [place] [address] 14 Mar, 2017 Thoracic back pain, unspecified back pain laterality, unspecified chronicity M54.6 ; HTN (hypertension) I10 ; Hyperlipidemia E78.5 and Anxiety F41.9 [place] [address] [place] [address] Feb, Thoracic back pain, unspecified back pain laterality, unspecified chronicity M54.6 and Anxiety F41.9 [place] [address] [place] [id number] [place] [address] Nov, [facility] [address] [place] [address] [id number] [place] [address] Oct, [facility] [address] [place] [id number] [place] [address] Oct, Thoracic back pain, unspecified back pain laterality, unspecified chronicity M54.6 [facility] [address] [place] [id number] [place] [address] Oct, HTN (hypertension) I10 ; Constipation K59.00 ; Hyperlipidemia E78.5 ; Thoracic back pain, unspecified back pain laterality, unspecified chronicity M54.6 ; Chronic pain G89.29 ; Anxiety F41.9 ; Chronic kidney failure N18.9 ; Environmental allergies Z91.09 ; Vitamin D deficiency E55.9 and Primary insomnia F51.01 [facility] [address] [place] [id number] [place] [address] Sep, Anxiety F41.9 [facility] [address] [place] [id number] [place] [address] Sep, [facility] [address] [place] [id number] [place] [address] August, Anxiety F41.9 [facility] [address] [place] [id number] [place] [address] August, [facility] [address] [place] [id number] [place] [address] Jul, Anxiety F41.9 [facility] [address] [place] [id number] [place] [address] Jul, [facility] [address] [place] [id number] [place] [address] Jun, Anxiety F41.9 [facility] [address] [place] [id number] [place] [address] Jun, [place] [address] [address] May, [facility] [address] [place] [address] May, [facility] [address] [address] May, [facility] [address] [place] [id number] [place] [address] Apr, [facility] [address] [place] [id number] [place] [address] Apr, [facility] [address] [place] [id number] [place] [address] Apr, Anxiety F41.9 [facility] [address] [place] [id number] [place] [address] Apr, Anxiety F41.9 [facility] [address] [place] [id number] [place] [address] Apr, [facility] [address] [place] [address] Mar, HTN (hypertension) I10 ; Tremor R25.1 ; Hypercholesterolemia E78.0 ; Constipation K59.00 ; Chronic pain G89.29 ; Hyperlipidemia E78.5 ; Insomnia G47.00 ; Anxiety F41.9 and Thoracic back pain, unspecified back pain laterality, unspecified chronicity M54.6 [facility] [address] [address] Mar, Tremor R25.1 ; HTN (hypertension) I10 ; Hypercholesterolemia E78.0 ; Constipation K59.00 ; Chronic pain G89.29 ; Hyperlipidemia E78.5 ; Insomnia G47.00 ; Anxiety F41.9 and Thoracic back pain, unspecified back pain laterality, unspecified chronicity M54.6 [facility] [address] [address] Mar, [facility] [address] [facility] [id number] [place] [address] Mar, [facility] [address] [facility] [id number] [place] [address] Feb, [facility] [address] [facility] [id number] [place] [address] Jan, [facility] [address] [facility] [id number] [place] [address], [place] [address] Jan, [facility] [address] [facility] [id number] [place] [address] Dec, [facility] [address] [facility] [id number] [place] [address], [place] [address] Nov, [facility] [id number] [place] [address] Nov, [facility] [id number] [place] [address] Oct, Anxiety F41.9 [facility] [address] [facility] [id number] [place] [address] Oct, Chronic pain G89.29 [facility] [id number] [address] Sep, [facility] [address] [address] Sep, [facility] [address] [facility] [id number] [address] Sep, [facility] [address] [facility] [id number] [place] [address] Sep, [facility] [address] [facility] [id number] [address] 16 Sep, 2015 Chronic pain syndrome G89.4 [facility] [address] [address] 15 Sep, 2015 HTN (hypertension) I10 ; Chronic pain G89.29 ; Hypercholesterolemia E78.0 ; Chronic kidney failure N18.9 ; Constipation, unspecified constipation type K59.00 ; Anxiety F41.9 and Thoracic back pain, unspecified back pain laterality, unspecified chronicity M54.6 [facility] [address] [place] [id number] [place] [address] August, Chronic pain syndrome G89.4 [facility] [address] [address] August, Chronic pain syndrome G89.4 [facility] [address] [address] Jul, Anxiety disorder, unspecified F41.9 and Chronic pain syndrome G89.4 [facility] [address] [place] [id number] [place] [address] Jul, Insomnia, unspecified G47.00 and Chronic pain syndrome G89.4 [facility] [address] [place] [id number] [place] [address] Jul, Allergic rhinitis J30.9 [facility] [address] [place] [id number] [place] [address] Jul, Constipation, unspecified K59.00 [facility] [address] [place] [id number] [place] [address] Jul, [facility] [address] [place] [id number] [place] [address] Jun, [facility] [address] [place] [id number] [place] [address] Jun, [place] [address] [address] Jun, [facility] [address] [place] [id number] [place] [address] Jun, [facility] [address] [place] [id number] [place] [address] Jun, [facility] [address] [address] Jun, [facility] [address] [place] [id number] [place] [address] May, [facility] [address] [place] [id number] [place] [address] May, [facility] [address] [place] [id number] [place] [address] May, Anxiety F41.9 ; Insomnia G47.00 ; Hyperlipidemia E78.5 ; Chronic pain G89.29 ; HTN (hypertension) I10 ; Environmental allergies V15.09 and Constipation 564.00 [facility] [address] [place] [id number] [place] [address] Apr, [facility] [address] [place] [id number] [place] [address] Apr, [facility] [address] [place] [id number] [place] [address] Apr, [facility] [address] [id number] [place] [address] Mar, [facility] [address] [address] Mar, [facility] [address] [place] [id number] [place] [address] Mar, [facility] [address] [place] [address] Feb, [facility] [address] [place] [id number] [place] [address] Feb, [facility] [address] [place] [id number] [address] Feb, [facility] [address] [place] [address] Jan, HTN (hypertension) I10 ; Constipation K59.00 ; Chronic pain G89.29 ; Hyperlipidemia E78.5 ; Hypercholesterolemia E78.0 ; Insomnia G47.00 and Anxiety F41.9 [place] [id number] [place] [address] Jan, [place] [id number] [place] [address] Dec, [address] [address] Nov, [place] [id number] [place] [address] Oct, Chronic kidney disease, unspecified 585.9 ; Chronic pain syndrome 338.4 ; Hyperlipidemia 272.4 and Essential hypertension 401.9 [place] [id number] [place] [address] Oct, Chronic kidney disease 585.9 [place] [id number] [place] [address] Oct, [place] [id number] [place] [address] Oct, Chronic kidney disease, unspecified 585.9 ; Hypercalcemia 275.42 ; Hyperlipidemia 272.4 ; Essential hypertension 401.9 ; Chronic pain syndrome 338.4 ; Insomnia 780.52 ; Constipation 564.00 ; Environmental allergies V15.09 and Anxiety 300.00 [place] [id number] [place] [address] Oct, Chronic kidney disease 585.9 [place] [id number] [place] [address] Oct, [place] [id number] [place] [address] Oct, Chronic kidney disease 585.9 and Hyperlipidemia 272.4 [place] [id number] [place] [address] Oct, [facility] [address] [id number] [place] [address] 10 Oct, 2014 [facility] [address] [id number] [place] [address] 18 Sep, 2014 [facility] [address] [id number] [place] [address] 15 Sep, 2014 [facility] [address] [id number] [place] [address] 15 Sep, 2014 Chronic kidney disease 585.9 and Hyperlipidemia 272.4 [facility] [address] [id number] [place] [address] Sep, [facility] [address] [id number] [place] [address] August, [facility] [address] [facility] [id number] [place] [address] August, [facility] [address] [id number] [place] [address] Jul, [facility] [address] [id number] [place] [address] Jul, [facility] [address] [facility] [id number] [place] [address] Jun, [facility] [place] [place] [facility] [address] [id number] [place] [address] Jun, [facility] [place] [facility] [address] [id number] [place] [address] 16 Jun, 2014 [facility] [place] [facility] [address] [id number] [place] [address] 16 Jun, 2014 [facility] [place] [facility] [address] [id number] [place] [address] 09 Jun, 2014 [facility] [place] [facility] [address] [facility] [id number] [place] [address] Jun, [facility] [place] [facility] [address] [id number] [place] [address] Jun, [facility] [place] [facility] [address] [id number] [place] [address] Jun, [facility] [place] [facility] [address] [id number] [place] [address] May, [facility] [place] [facility] [address] [id number] [place] [address] May, [facility] [place] [facility] [address] [id number] [place] [address] May, [facility] [place] [facility] [address] [id number] [place] [address] May, [facility] [place] [facility] [address] [id number] [place] [address] Apr, [facility] [place] [facility] [address] [id number] [place] [address] Apr, [facility] [place] [facility] [address] [id number] [place] [address] Apr, [facility] [place] [facility] [address] [id number] [place] [address] Apr, [facility] [place] [facility] [address] [id number] [place] [address] Apr, [facility] [place] [facility] [address] [id number] [place] [address] Apr, [facility] [place] [facility] [address] [id number] [place] [address] Apr, [facility] [place] [facility] [address] [id number] [place] [address] Apr, [facility] [place] [facility] [address] [id number] [place] [address] Apr, [facility] [place] [facility] [address] [id number] [address] Apr, [facility] [place] [facility] [address] [id number] [place] [address] Apr, [facility] [place] [facility] [address] [id number] [place] [address] Mar, [facility] [place] [facility] [address] [id number] [place] [address] Mar, [facility] [place] [facility] [address] [id number] [place] [address] Feb, [facility] [place] [facility] [address] [id number] [place] [address] Feb, [facility] [place] [facility] [address] [id number] [place] [address] Feb, [facility] [place] [facility] [address] [id number] [place] [address] Feb, [facility] [place] [facility] [address] [id number] [place] [address] Feb, [facility] [place] [facility] [address] [id number] [place] [address] Feb, [facility] [place] [facility] [address] [id number] [place] [address] Feb, [facility] [place] [facility] [address] [id number] [address] Feb, [facility] [place] [facility] [address] [id number] [address] Feb, [facility] [place] [facility] [address] [id number] [address] Feb, [facility] [place] [facility] [address] [id number] [place] [address] Jan, [facility] [place] [facility] [address] [id number] [place] [address] Jan, [facility] [place] [facility] [address] [id number] [place] [address] 27 Jan, 2013 [facility] [place] [facility] [address] [id number] [place] [address] Jan, [facility] [place] [facility] [address] [id number] [place] [address] Jan, [facility] [place] [facility] [address] [id number] [place] [address] 24 Jan, 2014 [facility] [place] [facility] [address] [id number] [place] [address] Jan, 2013 [facility] [place] [facility] [address] [id number] [place] [address] 17 Jan, 2014 [facility] [place] [facility] [address] [id number] [place] [address] 16 Jan, 2014 [facility] [place] [facility] [address] [id number] [place] [address] Jan, 2013 [facility] [place] [facility] [address] [id number] [place] [address] 06 Jan, 2014 [facility] [place] [facility] [address] [id number] [place] [address] 26 Dec, 2013 [facility] [place] [facility] [address] [id number] [place] [address] 26 Dec, 2013 [facility] [place] [facility] [address] [id number] [place] [address] 19 Dec, 2013 [facility] [place] [facility] [address] [id number] [place] [address] 19 Dec, 2013 [facility] [place] [facility] [address] [id number] [place] [address] 18 Dec, 2013 [facility] [place] [facility] [address] [id number] [place] [address] 18 Dec, 2013 [facility] [place] [facility] [address] [id number] [place] [address] Dec, [facility] [place] [facility] [address] [id number] [place] [address] Dec, [facility] [place] [facility] [address] [id number] [place] [address] Nov, [facility] [place] [facility] [address] [id number] [place] [address] Nov, [facility] [place] [facility] [address] [id number] [place] [address] Nov, [facility] [place] [facility] [address] [id number] [place] [address] Nov, [facility] [place] [facility] [address] [id number] [place] [address] Nov, [facility] [place] [facility] [address] [id number] [place] [address] Nov, [facility] [place] [facility] [address] [id number] [place] [address] Nov, [facility] [place] [facility] [address] [id number] [place] [address] Nov, [facility] [place] [facility] [address] [id number] [place] [address] Oct, [facility] [place] [facility] [address] [id number] [place] [address] Oct, [facility] [place] [facility] [address] [id number] [place] [address] Oct, [facility] [place] [facility] [address] [id number] [place] [address] Oct, [facility] [place] [facility] [address] [id number] [place] [address] Sep, [facility] [place] [facility] [address] [id number] [place] [address] Sep, [facility] [place] [facility] [address] [id number] [place] [address] Sep, [facility] [place] [facility] [address] [id number] [place] [address] Sep, [facility] [place] [facility] [address] [id number] [place] [address] Sep, [facility] [place] [facility] [address] [id number] [place] [address] Sep, [facility] [place] [facility] [address] [id number] [place] [address] Sep, [facility] [place] [facility] [address] [id number] [place] [address] Sep, [facility] [place] [facility] [address] [id number] [place] [address] August, [facility] [place] [facility] [address] [id number] [place] [address] August, [facility] [place] [facility] [address] [id number] [place] [address] August, [facility] [place] [facility] [address] [id number] [place] [address] August, [facility] [place] [facility] [address] [id number] [place] [address] August, [facility] [place] [facility] [address] [id number] [place] [address] August, [facility] [place] [facility] [address] [id number] [place] [address] August, [facility] [place] [facility] [address] [id number] [place] [address] August, [facility] [place] [facility] [address] [id number] [place] [address] August, [facility] [place] [facility] [address] [id number] [place] [address] August, [facility] [place] [facility] [address] [id number] [place] [address] Jul, [facility] [place] [facility] [address] [id number] [place] [address] Jul, [facility] [place] [facility] [address] [id number] [place] [address] Jul, [facility] [place] [facility] [address] [id number] [place] [address] Jul, [facility] [place] [facility] [address] [id number] [place] [address] Jul, [facility] [place] [facility] [address] [id number] [place] [address] Jul, [facility] [place] [facility] [address] [id number] [place] [address] Jul, [facility] [place] [facility] [address] [id number] [place] [address] Jul, [facility] [place] [facility] [address] [id number] [place] [address] Jun, [facility] [place] [facility] [address] [id number] [place] [address] Jun, [facility] [place] [facility] [address] [id number] [place] [address] Jun, [facility] [place] [facility] [address] [id number] [place] [address] Jun, [facility] [place] [facility] [address] [id number] [place] [address] Jun, [facility] [place] [facility] [address] [id number] [place] [address] Jun, [facility] [place] [facility] [address] [id number] [place] [address] May, [facility] [place] [facility] [address] [id number] [place] [address] May, [facility] [address] [id number] [place] [address] May, [facility] [place] [facility] [address] [id number] [place] [address] May, [facility] [place] [facility] [address] [id number] [place] [address] May, [facility] [place] [facility] [address] [id number] [place] [address] May, [facility] [place] [facility] [address] [id number] [place] [address] May, [facility] [place] [facility] [address] [id number] [place] [address] Apr, [facility] [address] [id number] [place] [address] Apr, [facility] [place] [facility] [address] [id number] [place] [address] Apr, [facility] [address] [id number] [place] [address] Apr, [facility] [place] [facility] [address] [id number] [place] [address] Apr, [facility] [address] [id number] [place] [address] Apr, [facility] [place] [facility] [address] [id number] [place] [address] Mar, [facility] [place] [facility] [address] [id number] [place] [address] Mar, [facility] [place] [facility] [address] [id number] [place] [address] Mar, [facility] [place] [facility] [address] [id number] [place] [address] Mar, [facility] [place] [facility] [address] [id number] [place] [address] 19 Mar, 2013 [facility] [place] [facility] [address] [id number] [place] [address] 19 Mar, 2013 [facility] [place] [facility] [address] [id number] [place] [address] 16 Mar, 2013 [facility] [place] [facility] [address] [id number] [place] [address] 16 Mar, 2013 [facility] [place] [facility] [address] [id number] [place] [address] 12 Mar, 2013 [facility] [place] [facility] [address] [id number] [place] [address] Mar, [facility] [place] [facility] [address] [id number] [place] [address] Feb, [facility] [place] [facility] [address] [id number] [place] [address] 25 Feb, 2013 [facility] [place] [facility] [address] [id number] [place] [address] Feb, [facility] [place] [facility] [address] [id number] [place] [address] 25 Feb, 2013 [facility] [place] [facility] [address] [id number] [place] [address] 14 Feb, 2013 [facility] [place] [facility] [address] [id number] [place] [address] 14 Feb, 2013 [facility] [place] [facility] [address] [id number] [place] [address] 11 Feb, 2013 [facility] [place] [facility] [address] [id number] [place] [address] 11 Feb, 2013 [facility] [place] [facility] [address] [id number] [place] [address] 08 Feb, 2013 [facility] [place] [facility] [address] [id number] [place] [address] Feb, [facility] [place] [facility] [address] [id number] [place] [address] Jan, [facility] [place] [facility] [address] [id number] [place] [address] Jan, [facility] [place] [facility] [address] [id number] [place] [address] Jan, [facility] [place] [facility] [address] [id number] [place] [address] Jan, [facility] [place] [facility] [address] [id number] [place] [address] Jan, [facility] [place] [facility] [address] [id number] [place] [address] Jan, [facility] [place] [facility] [address] [id number] [place] [address] Jan, [facility] [place] [facility] [address] [id number] [address] Jan, [facility] [place] [facility] [address] [id number] [place] [address] Jan, [facility] [place] [facility] [address] [id number] [place] [address] Dec, [facility] [place] [facility] [address] [id number] [place] [address] Dec, [facility] [place] [facility] [address] [id number] [place] [address] 21 Dec, 2012 [facility] [place] [facility] [address] [id number] [place] [address] 13 Dec, 2012 [facility] [place] [facility] [address] [id number] [place] [address] Nov, [facility] [place] [facility] [address] [id number] [place] [address] Nov, [facility] [place] [facility] [address] [id number] [place] [address] Nov, [facility] [address] [id number] [place] [address] Nov, [facility] [place] [facility] [address] [id number] [place] [address] Nov, [facility] [address] [id number] [place] [address] Nov, [facility] [place] [facility] [address] [id number] [place] [address] Oct, [facility] [address] [id number] [place] [address] Oct, [facility] [address] [id number] [place] [address] Oct, [facility] [address] [id number] [place] [address] Oct, [facility] [address] [id number] [place] [address] Sep, [facility] [place] [facility] [address] [id number] [place] [address] Sep, [facility] [address] [id number] [place] [address] Sep, [facility] [place] [facility] [address] [id number] [place] [address] Sep, [facility] [place] [facility] [address] [id number] [place] [address] Sep, [facility] [place] [facility] [address] [id number] [place] [address] August, [facility] [place] [facility] [address] [id number] [place] [address] August, [facility] [place] [facility] [address] [id number] [place] [address] Jul, [facility] [place] [facility] [address] [id number] [place] [address] Jul, [facility] [address] [id number] [place] [address] 15 Jul, 2012 [facility] [address] [id number] [place] [address] Jul, [facility] [address] [id number] [place] [address] Jul, [facility] [address] [id number] [place] [address] Jun, [facility] [address] [id number] [place] [address] Jun, [facility] [address] [id number] [place] [address] Jun, [facility] [address] [id number] [place] [address] Jun, [facility] [address] [id number] [place] [address] Jun, [facility] [address] [id number] [place] [address] May, [facility] [address] [id number] [place] [address] May, [facility] [address] [id number] [place] [address] May, [facility] [address] [id number] [place] [address] May, [facility] [place] [facility] [address] [id number] [place] [address] 20 May, 2012 [facility] [place] [place] [facility] [address] [id number] [place] [address] 14 May, 2012 [facility] [address] [id number] [place] [address] 13 May, 2012 [facility] [address] [id number] [place] [address] 08 May, 2012 [facility] [address] [id number] [place] [address] 04 May, 2012 [facility] [address] [id number] [place] [address] Apr, [facility] [address] [id number] [place] [address] Apr, [facility] [address] [id number] [place] [address] Apr, [facility] [address] [id number] [place] [address] Apr, [facility] [address] [id number] [place] [address] Apr, [facility] [address] [id number] [place] [address] Mar, [facility] [address] [id number] [place] [address] Mar, [facility] [address] [id number] [place] [address] Mar, [facility] [address] [id number] [place] [address] Mar, [facility] [address] [id number] [place] [address] Mar, [facility] [address] [id number] [place] [address] Mar, [facility] [address] [id number] [place] [address] Mar, [facility] [address] [id number] [place] [address] Mar, [facility] [place] [facility] [address] [id number] [place] [address] 07 Mar, 2012 [facility] [place] [facility] [address] [id number] [place] [address] Mar, [facility] [place] [facility] [address] [id number] [place] [address] 30 Feb, 2012 [facility] [place] [facility] [address] [id number] [place] [address] 30 Feb, 2012 [facility] [place] [facility] [address] [id number] [place] [address] Feb, [facility] [place] [facility] [address] [id number] [place] [address] 29 Feb, 2012 [facility] [place] [facility] [address] [id number] [place] [address] Feb, [facility] [place] [facility] [address] [id number] [place] [address] Feb, [facility] [place] [facility] [address] [id number] [place] [address] Feb, [facility] [place] [facility] [address] [id number] [place] [address] 20 Feb, 2012 [facility] [place] [facility] [address] [id number] [place] [address] 16 Feb, 2012 [facility] [place] [facility] [address] [id number] [address] 16 Feb, 2012 [facility] [place] [facility] [address] [id number] [place] [address] 13 Feb, 2012 [facility] [place] [facility] [address] [id number] [place] [address] 13 Feb, 2012 [facility] [place] [facility] [address] [id number] [place] [address] 12 Feb, 2012 [facility] [place] [facility] [address] [id number] [place] [address] Feb, [facility] [place] [facility] [address] [id number] [place] [address] Feb, [facility] [place] [facility] [address] [id number] [place] [address] Feb, [facility] [place] [facility] [address] [id number] [place] [address] Feb, [facility] [place] [facility] [address] [id number] [place] [address] Feb, [facility] [place] [facility] [address] [id number] [place] [address] Jan, [facility] [place] [facility] [address] [id number] [place] [address] Jan, [facility] [place] [facility] [address] [id number] [place] [address] Jan, [facility] [place] [facility] [address] [id number] [place] [address] Jan, [facility] [place] [facility] [address] [id number] [place] [address] Jan, [facility] [place] [facility] [address] [id number] [place] [address] Jan, [facility] [place] [facility] [address] [id number] [place] [address] Jan, [facility] [place] [facility] [address] [id number] [place] [address] Jan, [facility] [place] [facility] [address] [id number] [place] [address] Jan, [facility] [place] [facility] [address] [facility] [id number] [place] [address] Jan, [facility] [place] [facility] [address] [id number] [address] Dec, [facility] [place] [facility] [address] [id number] [place] [address] 18 Dec, 2011 [facility] [place] [facility] [address] [id number] [place] [address] Dec, [facility] [place] [facility] [address] [id number] [place] [address] Dec, [facility] [place] [facility] [address] [id number] [place] [address] Nov, [facility] [place] [facility] [address] [id number] [place] [address] Nov, [facility] [place] [facility] [address] [id number] [place] [address] Nov, [facility] [place] [facility] [address] [id number] [place] [address] Nov, [facility] [place] [facility] [address] [id number] [place] [address] Nov, [facility] [place] [facility] [address] [id number] [place] [address] Nov, [facility] [place] [facility] [address] [id number] [place] [address] Oct, [facility] [place] [facility] [address] [id number] [place] [address] Oct, [facility] [place] [facility] [address] [id number] [place] [address] Oct, [facility] [place] [facility] [address] [id number] [place] [address] Oct, [facility] [place] [facility] [address] [id number] [place] [address] Oct, [facility] [place] [facility] [address] [id number] [place] [address] Sep, [facility] [place] [facility] [address] [id number] [place] [address] Sep, [facility] [address] [id number] [place] [address] Sep, [facility] [place] [facility] [address] [id number] [place] [address] Sep, [facility] [place] [facility] [address] [id number] [place] [address] Sep, [facility] [place] [facility] [address] [id number] [place] [address] August, [facility] [place] [facility] [address] [id number] [place] [address] August, [facility] [place] [facility] [address] [id number] [place] [address] August, [facility] [place] [facility] [address] [id number] [place] [address] August, [facility] [place] [facility] [address] [id number] [place] [address] Jul, [facility] [place] [facility] [address] [id number] [place] [address] 24 Jul, 2011 [facility] [place] [facility] [address] [id number] [place] [address] Jul, [facility] [place] [facility] [address] [id number] [place] [address] Jul, [facility] [place] [facility] [address] [id number] [address] 18 Jul, 2011 [facility] [place] [facility] [address] [id number] [place] [address] 12 Jul, 2011 [facility] [place] [facility] [address] [id number] [place] [address] 11 Jul, 2011 [facility] [place] [facility] [address] [id number] [place] [address] 10 Jul, 2011 [facility] [place] [facility] [address] [id number] [place] [address] 09 Jul, 2011 [facility] [address] [id number] [place] [address] Jul, [facility] [place] [facility] [address] [id number] [place] [address] 05 Jul, 2011 [facility] [place] [facility] [address] [id number] [place] [address] Jul, [facility] [place] [facility] [address] [id number] [place] [address] Jul, [facility] [place] [facility] [address] [id number] [place] [address] Jul, [facility] [place] [facility] [address] [id number] [place] [address] Jun, [facility] [place] [facility] [address] [id number] [place] [address] Jun, [facility] [place] [facility] [address] [id number] [place] [address] Jun, [facility] [place] [facility] [address] [id number] [place] [address] 16 Jun, 2011 [facility] [place] [facility] [address] [id number] [place] [address] May, [facility] [place] [facility] [address] [id number] [place] [address] 16 May, 2011 [facility] [place] [facility] [address] [id number] [place] [address] May, [facility] [place] [facility] [address] [id number] [place] [address] Apr, [facility] [place] [facility] [address] [id number] [place] [address] 18 Apr, 2011 [facility] [place] [facility] [address] [id number] [place] [address] Apr, [facility] [place] [facility] [address] [id number] [place] [address] 11 Apr, 2011 [facility] [address] [id number] [place] [address] Apr, [facility] [address] [id number] [place] [address] Mar, [facility] [address] [id number] [place] [address] Mar, [facility] [address] [id number] [place] [address] Mar, [facility] [address] [id number] [place] [address] Mar[facility] [address] [id number] [place] [address] Mar, [facility] [address] [id number] [place] [address] Mar, [facility] [address] [id number] [place] [address] Mar, [facility] [address] [id number] [place] [address] Feb, [facility] [address] [id number] [place] [address] Feb, [facility] [address] [id number] [place] [address] Feb, [facility] [place] [facility] [address] [id number] [place] [address] Feb, [facility] [place] [facility] [address] [id number] [place] [address] 16 Feb, 2011 [facility] [place] [facility] [address] [id number] [place] [address] 14 Feb, 2011 [facility] [place] [facility] [address] [id number] [place] [address] Feb, [facility] [place] [facility] [address] [id number] [place] [address] 31 Jan, 2011 [facility] [place] [facility] [address] [id number] [place] [address] 31 Jan, 2011 [facility] [place] [facility] [address] [id number] [place] [address] 31 Jan, 2011 [facility] [place] [facility] [address] [id number] [place] [address] 18 Jan, 2011 [facility] [place] [facility] [address] [id number] [place] [address] Jan, [facility] [place] [facility] [address] [id number] [place] [address] 17 Jan, 2011 [facility] [place] [facility] [address] [id number] [place] [address] Jun, [facility] [place] [facility] [address] [id number] [place] [address] 30 Mar, 2010 [facility] [place] [facility] [address] [id number] [place] [address] 20 Mar, 2010 [facility] [place] [facility] [address] [id number] [place] [address] 14 Mar, 2010 [facility] [place] [facility] [address] [id number] [place] [address] 14 Mar, 2010 [facility] [place] [facility] [address] [id number] [place] [address] 13 Mar, 2010 [facility] [place] [facility] [address] [id number] [place] [address] 07 Mar, 2010 [facility] [place] [facility] [address] [id number] [place] [address] 02 Mar, 2010 [facility] [place] [facility] [address] [id number] [place] [address] Mar, [facility] [place] [facility] [address] [id number] [place] [address] 30 Feb, 2010 [facility] [address] [id number] [place] [address] 29 Feb, 2010 [facility] [place] [facility] [address] [id number] [place] [address] 17 Feb, 2010 [facility] [address] [id number] [place] [address] 17 Feb, 2010 [facility] [place] [facility] [address] [id number] [place] [address] 16 Feb, 2010 [facility] [address] [id number] [place] [address] 08 Feb, 2010 [facility] [place] [facility] [address] [facility] [id number] [place] [address] Feb, [facility] [place] [facility] [address] [id number] [place] [address] Feb, [facility] [address] [id number] [place] [address] Jan, [facility] [place] [facility] [address] [id number] [place] [address] Jan, [facility] [address] [facility] [id number] [place] [address] Jan, [facility] [place] [facility] [address] [id number] [place] [address] Jan, [facility] [address] [id number] [place] [address] Mar, [facility] [place] [facility] [address] [id number] [place] [address] Mar, [facility] [place] [facility] [address] [id number] [place] [address] Mar, [facility] [place] [facility] [address] [id number] [place] [address] Mar, [facility] [address] [facility] [id number] [address] 14 Mar, 2009 [facility] [address] [facility] [id number] [address] Mar, [facility] [address] [id number] [address] Feb, [facility] [address] [id number] [address] Feb, [facility] [address] [id number] [address] Jan, [facility] [id number] [address] Sep, [facility] [address] [id number] [address] May, IMMUNIZATIONS No Known Immunizations SOCIAL HISTORY Never Assessed REASON FOR VISIT Refill request PLAN OF CARE VITAL SIGNS MEDICATIONS Medication Instructions Dosage Frequency Start Date End Date Duration Status Fluticasone Propionate 50 SPRAY 2 SPRAYS IN EACH NOSTRIL DAILY 90 Active Fenofibrate 54 MG orally once daily take 1 tablet (54 mg) by oral route once daily 24h 30 Active Tizanidine HCl 4 MG Orally Three times a day 1 tablet as needed 8h 30 Active [place] 10-325 MG Orally every 6 hrs 1 tablet as needed 6h Oct, Active Xanax 2 MG Orally 4 times a day 1/2 tablet 6h 12 Dec, 2017 28 days Active Amlodipine Besylate 10 TAKE 1 TABLET BY MOUTH ONCE DAILY 90 Active Zetia 10 TAKE 1 TABLET DAILY 90 Active Perphenazine-Amitriptyline 0 TAKE 6 TABLETS BY MOUTH DAILY 30 Active Thioridazine HCl 100 mg Orally Once a day at hs 2 tablet Active Enalapril Maleate 20 TAKE 1 TABLET BY MOUTH TWICE DAILY 30 Active RESULTS No Results PROCEDURES No Known procedures INSTRUCTIONS MEDICATIONS ADMINISTERED No Known Medications MEDICAL (GENERAL) HISTORY Type Description Date Medical History Hypertension Medical History Hyperlipidemia Medical History chronic back pain since age 26 Medical History Anxiety Medical History Hx of Spontaneous Pneumothorax Surgical History right knee arthroscopy Surgical History colon resection Surgical History tonsillectomy Surgical History Left ear surgery Hospitalization History [facility]- Spontaneous Pneumothorax Hospitalization History [facility]- Colon resection Hospital[facility] - diarrhea/ couldnt urinate nov 2017
--- OUTSIDE RECORDS SUMMARY | 2018-10-15 01:27 | XMS REPORT ---
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 Name Role Phone NANCY MARIE Unavailable PROBLEMS Type Condition ICD9-CM Code KVB19-NZ Code Onset Dates Condition Status SNOMED Code Problem Anxiety F41.9 Active 51911822 Problem Chronic pain G89.29 Active 56327300 Problem Constipation K59.00 Active 21582664 Problem Insomnia G47.00 Active 220414651 Problem HTN (hypertension) I10 Active 86675813 Problem Chronic kidney disease, stage III (moderate) N18.3 Active 374457905 Problem Primary insomnia F51.01 Active 4989260 Problem Thoracic back pain, unspecified back pain laterality, unspecified chronicity M54.6 Active 457678411 Problem Hyperlipidemia E78.5 Active 93592261 Problem Environmental allergies Z91.09 Active 432454935 Problem Vitamin D deficiency E55.9 Active 40959630 ALLERGIES No Information ENCOUNTERS Encounter Location Date Diagnosis [place] [id number] [place] [address] Dec, Diarrhea of presumed infectious origin R19.7 [place] [id number] [place] [address] 19 Dec, 2017 Diarrhea of presumed infectious origin R19.7 [place] [id number] [place] [address] 18 Dec, 2017 Thoracic back pain, unspecified back pain laterality, unspecified chronicity M54.6 [place] [id number] [place] [address] 17 Dec, 2017 [place] [id number] [place] [address] 17 Dec, 2017 Anxiety F41.9 and Thoracic back pain, unspecified back pain laterality, unspecified chronicity M54.6 [place] [address] [address] Dec, Diarrhea of presumed infectious origin R19.7 [place] [address] [address] Dec, [place] [id number] [place] [address] Dec, Anxiety F41.9 and Thoracic back pain, unspecified back pain laterality, unspecified chronicity M54.6 [place] [id number] [place] [address] Dec, Anxiety F41.9 and Thoracic back pain, unspecified back pain laterality, unspecified chronicity M54.6 [email or web address] [address] [place] [id number] Dec, Diarrhea of presumed infectious origin R19.7 ; Anxiety F41.9 ; Thoracic back pain, unspecified back pain laterality, unspecified chronicity M54.6 and HTN (hypertension) I10 [address] [place] [address] Dec, Anxiety F41.9 [facility] [employer] [address] [place] [id number] Dec, Anxiety F41.9 ; Diarrhea of presumed infectious origin R19.7 ; Generalized abdominal pain R10.84 and Localized edema R60.0 [place] [id number] [place] [address] Nov, [email or web address] [address] [place] [id number] Nov, Anxiety F41.9 ; Urinary retention R33.9 ; Diarrhea of presumed infectious origin R19.7 ; Weakness R53.1 ; Acute kidney failure, unspecified N17.9 ; Chronic kidney disease, stage III (moderate) N18.3 and Thoracic back pain, unspecified back pain laterality, unspecified chronicity M54.6 [place] [id number] [place] [address] Oct, Thoracic back pain, unspecified back pain laterality, unspecified chronicity M54.6 and Anxiety F41.9 [place] [id number] [place] [address] Sep, Thoracic back pain, unspecified back pain laterality, unspecified chronicity M54.6 and Anxiety F41.9 [place] [address] [address] Sep, Thoracic back pain, unspecified back pain laterality, unspecified chronicity M54.6 ; Anxiety F41.9 and Encounter for medication monitoring Z51.81 [place] [id number] [place] [address] August, [place] [address] [address] August, Thoracic back pain, unspecified back pain laterality, unspecified chronicity M54.6 and Anxiety F41.9 [place] [id number] [place] [address] August, Hyperlipidemia E78.5 and HTN (hypertension) I10 [place] [id number] [place] [address] August, [place] [id number] [place] [address] August, Medicare welcome exam Z00.00 ; Chronic kidney failure N18.9 ; Anxiety F41.9 ; Chronic pain G89.29 ; Insomnia G47.00 ; Hyperlipidemia E78.5 ; HTN (hypertension) I10 and Thoracic back pain, unspecified back pain laterality, unspecified chronicity M54.6 [place] [id number] [place] [address] Jul, [place] [id number] [place] [address] Jul, [place] [id number] [address] Jul, [place] [id number] [place] [address] Jul, Anxiety F41.9 [place] [id number] [place] [address] Jul, Thoracic back pain, unspecified back pain laterality, unspecified chronicity M54.6 and Anxiety F41.9 [place] [id number] [place] [address] Jun, Thoracic back pain, unspecified back pain laterality, unspecified chronicity M54.6 and Anxiety F41.9 [place] [id number] [place] [address] 12 May, 2017 Thoracic back pain, unspecified back pain laterality, unspecified chronicity M54.6 and Anxiety F41.9 [place] [id number] [place] [address] Apr, Thoracic back pain, unspecified back pain laterality, unspecified chronicity M54.6 and Anxiety F41.9 [place] [id number] [place] [address] Mar, [place] [id number] [place] [address] 14 Mar, 2017 Thoracic back pain, unspecified back pain laterality, unspecified chronicity M54.6 and Anxiety F41.9 [place] [address] [place] [address] 14 Mar, 2017 Thoracic back pain, unspecified back pain laterality, unspecified chronicity M54.6 ; HTN (hypertension) I10 ; Hyperlipidemia E78.5 and Anxiety F41.9 [place] [address] [place] [address] Feb, Thoracic back pain, unspecified back pain laterality, unspecified chronicity M54.6 and Anxiety F41.9 [facility] [address] [place] [address] Nov, [facility] [id number] [place] [address] Oct, [facility] [id number] [place] [address] Oct, Thoracic back pain, unspecified back pain laterality, unspecified chronicity M54.6 [facility] [id number] [place] [address] Oct, HTN (hypertension) I10 ; Constipation K59.00 ; Hyperlipidemia E78.5 ; Thoracic back pain, unspecified back pain laterality, unspecified chronicity M54.6 ; Chronic pain G89.29 ; Anxiety F41.9 ; Chronic kidney failure N18.9 ; Environmental allergies Z91.09 ; Vitamin D deficiency E55.9 and Primary insomnia F51.01 [facility] [id number] [place] [address] Sep, Anxiety F41.9 [facility] [id number] [place] [address] Sep, [facility] [id number] [place] [address] August, Anxiety F41.9 [facility] [id number] [place] [address] August, [facility] [id number] [place] [address] Jul, Anxiety F41.9 [facility] [id number] [place] [address] Jul, [facility] [id number] [place] [address] Jun, Anxiety F41.9 [facility] [id number] [place] [address] Jun, [facility] [address] [address] May, [facility] [id number] [address] May, [facility] [address] [address] May, [facility] [id number] [place] [address] Apr, [facility] [address] [place] [address] Apr, [facility] [id number] [place] [address] Apr, Anxiety F41.9 [facility] [id number] [place] [address] Apr, Anxiety F41.9 [facility] [id number] [address] Apr, [facility] [id number] [place] [address] Mar, HTN (hypertension) I10 ; Tremor R25.1 ; Hypercholesterolemia E78.0 ; Constipation K59.00 ; Chronic pain G89.29 ; Hyperlipidemia E78.5 ; Insomnia G47.00 ; Anxiety F41.9 and Thoracic back pain, unspecified back pain laterality, unspecified chronicity M54.6 [facility] [address] [address] Mar, Tremor R25.1 ; HTN (hypertension) I10 ; Hypercholesterolemia E78.0 ; Constipation K59.00 ; Chronic pain G89.29 ; Hyperlipidemia E78.5 ; Insomnia G47.00 ; Anxiety F41.9 and Thoracic back pain, unspecified back pain laterality, unspecified chronicity M54.6 [facility] [address] [address] Mar, [facility] [address] [facility] [id number] [place] [address] Mar, [facility] [address] [facility] [id number] [place] [address] Feb, [facility] [address] [facility] [id number] [place] [address] Jan, [facility] [address] [facility] [id number] [place] [address], [place] [address] Jan, [facility] [address] [facility] [id number] [place] [address] Dec, [facility] [address] [facility] [id number] [place] [address] Nov, [facility] [address] [address] Nov, [facility] [address] [place] [address] Oct, Anxiety F41.9 [facility] [address] [facility] [id number] [address] Oct, Chronic pain G89.29 [facility] [address] [address] 24 Sep, 2015 [facility] [address] [facility] [id number], [place] [address] Sep, [facility] [address] [facility] [id number], [place] [address] Sep, [facility] [address] [facility] [id number], [place] [address] Sep, [facility] [address] [facility] [id number] [address] 16 Sep, 2015 Chronic pain syndrome G89.4 [facility] [address] [facility] [id number], [place] [address] Sep, HTN (hypertension) I10 ; Chronic pain G89.29 ; Hypercholesterolemia E78.0 ; Chronic kidney failure N18.9 ; Constipation, unspecified constipation type K59.00 ; Anxiety F41.9 and Thoracic back pain, unspecified back pain laterality, unspecified chronicity M54.6 [facility] [id number] [place] [address] August, Chronic pain syndrome G89.4 [facility] [address] [address] August, Chronic pain syndrome G89.4 [facility] [address] [address] Jul, Anxiety disorder, unspecified F41.9 and Chronic pain syndrome G89.4 [facility] [address] [address] Jul, Insomnia, unspecified G47.00 and Chronic pain syndrome G89.4 [facility] [id number] [place] [address] Jul, Allergic rhinitis J30.9 [facility] [address] [address] Jul, Constipation, unspecified K59.00 [facility] [id number] [place] [address] Jul, [facility] [id number] [place] [address] Jun, [facility] [id number] [place] [address] Jun, [facility] [address] [address] Jun, [facility] [id number] [place] [address] Jun, [facility] [address] [address] Jun, [facility] [id number] [place] [address] Jun, [facility] [id number] [place] [address] May, [facility] [id number] [place] [address] May, [facility] [id number] [place] [address] May, Anxiety F41.9 ; Insomnia G47.00 ; Hyperlipidemia E78.5 ; Chronic pain G89.29 ; HTN (hypertension) I10 ; Environmental allergies V15.09 and Constipation 564.00 [facility] [id number] [place] [address] Apr, [facility] [id number] [place] [address] Apr, [facility] [id number] [place] [address] Apr, [facility] [id number] [place] [address] Mar, [facility] [id number] [place] [address] Mar, [facility] [id number] [place] [address] Mar, [facility] [id number] [place] [address] Feb, [facility] [id number] [place] [address] Feb, [facility] [id number] [place] [address] Feb, [facility] [id number] [place] [address] Jan, HTN (hypertension) I10 ; Constipation K59.00 ; Chronic pain G89.29 ; Hyperlipidemia E78.5 ; Hypercholesterolemia E78.0 ; Insomnia G47.00 and Anxiety F41.9 [place] [id number] [place] [address] Jan, [address] [address] Dec, [place] [address] [address] Nov, [address] [address] Oct, Chronic kidney disease, unspecified 585.9 ; Chronic pain syndrome 338.4 ; Hyperlipidemia 272.4 and Essential hypertension 401.[address] [address] Oct, Chronic kidney disease 585.9 [place] [id number] [place] [address] Oct, [address] [address] Oct, Chronic kidney disease, unspecified 585.9 ; Hypercalcemia 275.42 ; Hyperlipidemia 272.4 ; Essential hypertension 401.9 ; Chronic pain syndrome 338.4 ; Insomnia 780.52 ; Constipation 564.00 ; Environmental allergies V15.09 and Anxiety 300.00 [place] [id number] [place] [address] Oct, Chronic kidney disease 585.[address] [address] Oct, [address] [address] Oct, Chronic kidney disease 585.9 and Hyperlipidemia 272.[address] [address] 10 Oct, 2014 [facility] [address] [id number] [place] [address] 10 Oct, 2014 [facility] [address] [id number] [place] [address] 18 Sep, 2014 [facility] [address] [facility] [id number] [place] [address] 15 Sep, 2014 [facility] [address] [id number] [place] [address] Sep, Chronic kidney disease 585.9 and Hyperlipidemia 272.4 [facility] [address] [id number] [place] [address] Sep, [facility] [address] [facility] [id number] [place] [address] August, [facility] [address] [facility] [id number] [place] [address] August, [facility] [address] [facility] [id number] [place] [address] 14 Jul, 2014 [facility] [address] [id number] [place] [address] Jul, [facility] [address] [facility] [id number] [place] [address] Jun, [facility] [address] [id number] [place] [address] Jun, [facility] [place] [facility] [address] [id number] [place] [address] 16 Jun, 2014 [facility] [place] [facility] [address] [id number] [place] [address] 16 Jun, 2014 [facility] [place] [facility] [address] [facility] [id number] [place] [address] Jun, [facility] [place] [facility] [address] [facility] [id number] [place] [address] Jun, [facility] [place] [facility] [address] [id number] [place] [address] Jun, [facility] [place] [facility] [address] [id number] [place] [address] Jun, [facility] [place] [facility] [address] [id number] [place] [address] May, [facility] [place] [facility] [address] [id number] [place] [address] May, [facility] [place] [facility] [address] [id number] [place] [address] May, [facility] [place] [facility] [address] [id number] [place] [address] May, [facility] [place] [facility] [address] [id number] [place] [address] Apr, [facility] [place] [facility] [address] [id number] [place] [address] Apr, [facility] [place] [facility] [address] [id number] [place] [address] Apr, [facility] [place] [facility] [address] [id number] [place] [address] Apr, [facility] [place] [facility] [address] [id number] [place] [address] Apr, [facility] [place] [facility] [address] [id number], [place] [address] Apr, [facility] [place] [facility] [address] [id number] [place] [address] Apr, [facility] [place] [facility] [address] [id number] [place] [address] Apr, [facility] [place] [facility] [address] [id number] [place] [address] Apr, [facility] [place] [facility] [address] [id number] [place] [address] Apr, [facility] [place] [facility] [address] [id number] [place] [address] Apr, [facility] [place] [facility] [address] [id number] [place] [address] Mar, [facility] [place] [facility] [address] [id number] [place] [address] Mar, [facility] [place] [facility] [address] [id number] [place] [address] Feb, [facility] [place] [facility] [address] [id number] [place] [address] Feb, [facility] [place] [facility] [address] [id number] [place] [address] Feb, [facility] [place] [facility] [address] [id number] [place] [address] Feb, [facility] [place] [facility] [address] [id number] [place] [address] Feb, [facility] [place] [facility] [address] [id number] [place] [address] Feb, [facility] [place] [facility] [address] [facility] [id number] [place] [address] Feb, [facility] [place] [facility] [address] [id number] [place] [address] Feb, [facility] [place] [facility] [address] [id number], [place] [address] Feb, [facility] [place] [facility] [address] [id number] [place] [address] Feb, [facility] [place] [facility] [address] [id number] [place] [address] Jan, [facility] [place] [facility] [address] [id number] [place] [address] Jan, [facility] [place] [facility] [address] [id number] [place] [address] Jan, [facility] [place] [facility] [address] [id number] [place] [address] Jan, [facility] [place] [facility] [address] [id number] [place] [address] Jan, [facility] [place] [facility] [address] [id number] [place] [address] 24 Jan, 2014 [facility] [place] [facility] [address] [id number] [place] [address] Jan, [facility] [place] [facility] [address] [id number] [place] [address] 17 Jan, 2014 [facility] [place] [facility] [address] [id number] [place] [address] 16 Jan, 2014 [facility] [place] [facility] [address] [id number] [place] [address] Jan, [facility] [place] [facility] [address] [id number] [place] [address] 06 Jan, 2014 [facility] [place] [facility] [address] [id number] [place] [address] 26 Dec, 2013 [facility] [place] [facility] [address] [id number] [place] [address] 26 Dec, 2013 [facility] [place] [facility] [address] [id number] [place] [address] 19 Dec, 2013 [facility] [place] [facility] [address] [id number] [place] [address] 19 Dec, 2013 [facility] [place] [facility] [address] [id number] [place] [address] 18 Dec, 2013 [facility] [place] [facility] [address] [id number] [place] [address] 18 Dec, 2013 [facility] [place] [facility] [address] [id number] [place] [address] Dec, [facility] [place] [facility] [address] [id number] [place] [address] Dec, [facility] [place] [facility] [address] [id number] [place] [address] Nov, [facility] [place] [facility] [address] [id number] [place] [address] Nov, [facility] [place] [facility] [address] [id number] [place] [address] Nov, [facility] [place] [facility] [address] [id number] [place] [address] Nov, [facility] [place] [facility] [address] [id number] [place] [address] Nov, [facility] [place] [facility] [address] [id number] [place] [address] Nov, [facility] [place] [facility] [address] [id number] [place] [address] Nov, [facility] [place] [facility] [address] [id number] [place] [address] Nov, [facility] [place] [facility] [address] [id number] [place] [address] Oct, [facility] [place] [facility] [address] [id number] [place] [address] Oct, [facility] [place] [facility] [address] [id number] [place] [address] Oct, [facility] [place] [facility] [address] [id number] [place] [address] Oct, [facility] [place] [facility] [address] [id number] [place] [address] Sep, [facility] [place] [facility] [address] [id number] [place] [address] Sep, [facility] [place] [facility] [address] [id number] [place] [address] Sep, [facility] [address] [id number] [place] [address] Sep, [facility] [address] [id number] [place] [address] Sep, [facility] [address] [id number] [place] [address] Sep, [facility] [place] [facility] [address] [id number] [place] [address] Sep, [facility] [address] [id number] [place] [address] Sep, [facility] [address] [id number] [place] [address] August, [facility] [address] [id number] [place] [address] August, [facility] [address] [id number] [place] [address] August, [facility] [address] [id number] [place] [address] August, [facility] [address] [id number] [place] [address] August, [facility] [place] [facility] [address] [id number] [place] [address] August, [facility] [place] [facility] [address] [id number] [place] [address] August, [facility] [place] [facility] [address] [id number] [place] [address] August, [facility] [place] [facility] [address] [id number] [place] [address] August, [facility] [place] [facility] [address] [id number] [place] [address] August, [facility] [place] [facility] [address] [id number] [place] [address] Jul, [facility] [place] [facility] [address] [id number] [place] [address] Jul, [facility] [place] [facility] [address] [id number] [place] [address] Jul, [facility] [place] [facility] [address] [id number] [place] [address] Jul, [facility] [place] [facility] [address] [id number] [place] [address] Jul, [facility] [place] [facility] [address] [id number] [place] [address] Jul, [facility] [place] [facility] [address] [id number] [place] [address] Jul, [facility] [place] [facility] [address] [id number] [place] [address] Jul, [facility] [place] [facility] [address] [id number] [place] [address] Jun, [facility] [place] [facility] [address] [id number] [place] [address] Jun, [facility] [place] [facility] [address] [id number] [place] [address] Jun, [facility] [place] [facility] [address] [id number] [place] [address] Jun, [facility] [place] [facility] [address] [id number] [place] [address] Jun, [facility] [place] [facility] [address] [id number] [place] [address] Jun, [facility] [place] [facility] [address] [id number] [place] [address] May, [facility] [place] [facility] [address] [id number] [place] [address] May, [facility] [place] [facility] [address] [id number] [place] [address] May, [facility] [place] [facility] [address] [id number] [place] [address] May, [facility] [place] [facility] [address] [id number] [place] [address] May, [facility] [place] [facility] [address] [id number] [place] [address] May, [facility] [place] [facility] [address] [id number] [place] [address] May, [facility] [place] [facility] [address] [id number] [place] [address] Apr, [facility] [place] [facility] [address] [id number] [place] [address] Apr, [facility] [place] [facility] [address] [id number] [place] [address] Apr, [facility] [place] [facility] [address] [id number] [place] [address] Apr, [facility] [place] [facility] [address] [id number] [place] [address] Apr, [facility] [place] [facility] [address] [id number] [place] [address] Apr, [facility] [place] [facility] [address] [id number] [place] [address] Mar, [facility] [place] [facility] [address] [id number] [place] [address] Mar, [facility] [place] [facility] [address] [id number] [place] [address] Mar, [facility] [place] [facility] [address] [id number] [place] [address] Mar, [facility] [place] [facility] [address] [id number] [place] [address] Mar, [facility] [address] [id number] [place] [address] Mar, [facility] [address] [id number] [place] [address] Mar, [facility] [address] [id number] [place] [address] Mar, [facility] [address] [id number] [place] [address] Mar, [facility] [address] [id number] [place] [address] Mar, [facility] [address] [id number] [place] [address] Feb, [facility] [address] [id number] [place] [address] Feb, [facility] [address] [id number] [place] [address] Feb, [facility] [address] [id number] [place] [address] Feb, [facility] [address] [id number] [place] [address] 14 Feb, 2013 [facility] [place] [facility] [address] [id number], [place] [address] 14 Feb, 2013 [facility] [place] [facility] [address] [id number] [place] [address] Feb, [facility] [place] [facility] [address] [id number] [place] [address] Feb, [facility] [place] [facility] [address] [id number] [place] [address] 08 Feb, 2013 [facility] [place] [facility] [address] [id number], [place] [address] Feb, [facility] [place] [facility] [address] [id number] [place] [address] Jan, [facility] [place] [facility] [address] [id number] [place] [address] Jan, [facility] [place] [facility] [address] [id number] [place] [address] Jan, [facility] [place] [facility] [address] [id number] [place] [address] Jan, [facility] [place] [facility] [address] [id number] [place] [address] Jan, [facility] [place] [facility] [address] [id number] [place] [address] Jan, [facility] [place] [facility] [address] [id number] [place] [address] Jan, [facility] [place] [facility] [address] [id number] [place] [address] Jan, [facility] [place] [facility] [address] [id number] [place] [address] Jan, [facility] [place] [facility] [address] [id number] [place] [address] Dec, [facility] [place] [facility] [address] [id number], [place] [address] Dec, [facility] [place] [facility] [address] [id number], [place] [address] 21 Dec, 2012 [facility] [place] [facility] [address] [id number] [place] [address] 13 Dec, 2012 [facility] [place] [facility] [address] [id number] [place] [address] Nov, [facility] [place] [facility] [address] [id number] [place] [address] Nov, [facility] [place] [facility] [address] [id number] [place] [address] Nov, [facility] [address] [id number] [place] [address] Nov, [facility] [address] [id number] [place] [address] Nov, [facility] [address] [id number] [place] [address] Nov, [facility] [address] [id number] [place] [address] Oct, [facility] [address] [id number] [place] [address] Oct, [facility] [address] [id number] [place] [address] Oct, [facility] [address] [id number] [place] [address] Oct, [facility] [address] [id number] [place] [address] Sep, [facility] [address] [id number] [place] [address] Sep, [facility] [address] [id number] [place] [address] Sep, [facility] [address] [id number] [place] [address] Sep, [facility] [address] [id number] [place] [address] Sep, [facility] [place] [facility] [address] [id number] [place] [address] August, [facility] [address] [id number] [place] [address] August, [facility] [address] [id number] [place] [address] Jul, [facility] [address] [id number] [place] [address] Jul, [facility] [place] [facility] [address] [id number] [place] [address] 15 Jul, 2012 [facility] [place] [facility] [address] [id number] [place] [address] Jul, [facility] [place] [facility] [address] [id number] [place] [address] Jul, [facility] [address] [id number] [place] [address] Jun, [facility] [place] [facility] [address] [id number] [place] [address] Jun, [facility] [place] [facility] [address] [id number] [place] [address] Jun, [facility] [place] [facility] [address] [id number] [place] [address] Jun, [facility] [place] [facility] [address] [id number] [place] [address] Jun, [facility] [place] [facility] [address] [id number] [place] [address] 28 May, 2012 [facility] [place] [facility] [address] [id number] [place] [address] May, [facility] [place] [facility] [address] [id number], [place] [address] May, [facility] [place] [facility] [address] [id number] [place] [address] May, [facility] [place] [facility] [address] [id number] [place] [address] 20 May, 2012 [facility] [place] [facility] [address] [id number] [place] [address] 14 May, 2012 [facility] [place] [facility] [address] [id number] [place] [address] 13 May, 2012 [facility] [address] [id number] [place] [address] 08 May, 2012 [facility] [address] [id number] [place] [address] May, [facility] [address] [id number] [place] [address] Apr, [facility] [address] [id number] [place] [address] Apr, [facility] [address] [id number] [place] [address] Apr, [facility] [address] [id number] [place] [address] Apr, [facility] [address] [id number] [place] [address] Apr, [facility] [address] [id number] [place] [address] Mar, [facility] [address] [id number] [place] [address] Mar, [facility] [address] [id number] [place] [address] Mar, [facility] [address] [id number] [place] [address] Mar, [facility] [address] [id number] [place] [address] Mar, [facility] [address] [id number] [place] [address] Mar, [facility] [address] [id number] [place] [address] Mar, [facility] [address] [id number] [place] [address] Mar, [facility] [place] [facility] [address] [id number] [place] [address] Mar, [facility] [place] [facility] [address] [id number] [place] [address] Mar, [facility] [place] [facility] [address] [id number] [place] [address] 30 Feb, 2012 [facility] [place] [facility] [address] [id number] [place] [address] 30 Feb, 2012 [facility] [place] [facility] [address] [id number] [place] [address] Feb, [facility] [place] [facility] [address] [id number] [place] [address] Feb, [facility] [place] [facility] [address] [id number] [place] [address] Feb, [facility] [place] [facility] [address] [id number] [place] [address] Feb, [facility] [place] [facility] [address] [id number] [place] [address] Feb, [facility] [place] [facility] [address] [id number] [place] [address] Feb, [facility] [place] [facility] [address] [id number] [place] [address] 16 Feb, 2012 [facility] [place] [facility] [address] [id number], [place] [address] 16 Feb, 2012 [facility] [place] [facility] [address] [id number] [place] [address] 13 Feb, 2012 [facility] [place] [facility] [address] [id number] [place] [address] 13 Feb, 2012 [facility] [place] [facility] [address] [id number] [place] [address] 12 Feb, 2012 [facility] [place] [facility] [address] [id number] [place] [address] Feb, [facility] [place] [facility] [address] [id number] [place] [address] Feb, [facility] [place] [facility] [address] [id number] [place] [address] Feb, [facility] [place] [facility] [address] [id number] [place] [address] Feb, [facility] [place] [facility] [address] [id number] [place] [address] Feb, [facility] [place] [facility] [address] [id number] [place] [address] Jan, [facility] [place] [facility] [address] [id number] [place] [address] Jan, [facility] [place] [facility] [address] [id number] [place] [address] Jan, [facility] [place] [facility] [address] [id number] [place] [address] Jan, [facility] [place] [facility] [address] [id number] [place] [address] Jan, [facility] [place] [facility] [address] [facility] [id number] [place] [address] Jan, [facility] [place] [facility] [address] [facility] [id number] [place] [address] Jan, [facility] [place] [facility] [address] [id number], [place] [address] Jan, [facility] [place] [facility] [address] [id number] [place] [address] Jan, [facility] [place] [facility] [address] [facility] [id number], [place] [address] Jan, [facility] [place] [facility] [address] [facility] [id number], [place] [address] 24 Dec, 2011 [facility] [place] [facility] [address] [id number] [place] [address] Dec, [facility] [place] [facility] [address] [id number] [place] [address] Dec, [facility] [place] [facility] [address] [id number] [place] [address] Dec, [facility] [place] [facility] [address] [id number] [place] [address] Nov, [facility] [place] [facility] [address] [id number] [place] [address] Nov, [facility] [place] [facility] [address] [id number] [place] [address] Nov, [facility] [place] [facility] [address] [id number] [place] [address] Nov, [facility] [place] [facility] [address] [id number] [place] [address] Nov, [facility] [place] [facility] [address] [id number] [place] [address] Nov, [facility] [place] [facility] [address] [id number] [place] [address] Oct, [facility] [place] [facility] [address] [id number] [place] [address] Oct, [facility] [place] [facility] [address] [id number] [place] [address] Oct, [facility] [place] [facility] [address] [id number] [place] [address] Oct, [facility] [place] [facility] [address] [id number] [place] [address] Oct, [facility] [place] [facility] [address] [id number] [place] [address] Sep, [facility] [place] [facility] [address] [id number] [place] [address] Sep, [facility] [place] [facility] [address] [id number] [place] [address] Sep, [facility] [place] [facility] [address] [id number] [place] [address] Sep, [facility] [place] [facility] [address] [id number] [place] [address] Sep, [facility] [place] [facility] [address] [id number] [place] [address] August, [facility] [place] [facility] [address] [id number] [place] [address] August, [facility] [place] [facility] [address] [id number] [place] [address] August, [facility] [place] [facility] [address] [id number] [place] [address] August, [facility] [place] [facility] [address] [id number] [place] [address] Jul, [facility] [place] [facility] [address] [id number] [place] [address] 24 Jul, 2011 [facility] [place] [facility] [address] [id number] [place] [address] Jul, [facility] [place] [facility] [address] [id number] [place] [address] 18 Jul, 2011 [facility] [place] [facility] [address] [id number], [place] [address] 18 Jul, 2011 [facility] [place] [facility] [address] [id number] [place] [address] 12 Jul, 2011 [facility] [place] [facility] [address] [id number] [place] [address] 11 Jul, 2011 [facility] [place] [facility] [address] [id number] [place] [address] 10 Jul, 2011 [facility] [place] [facility] [address] [id number] [place] [address] 09 Jul, 2011 [facility] [address] [id number] [place] [address] Jul, [facility] [address] [id number] [place] [address] 05 Jul, 2011 [facility] [address] [id number] [place] [address] Jul, [facility] [address] [id number] [place] [address] Jul, [facility] [address] [id number] [place] [address] Jul, [facility] [address] [id number] [place] [address] Jun, [facility] [address] [id number] [place] [address] Jun, [facility] [address] [id number] [place] [address] Jun, [facility] [address] [id number] [place] [address] 16 Jun, 2011 [facility] [address] [id number] [place] [address] May, [facility] [address] [id number] [place] [address] 16 May, 2011 [facility] [address] [id number] [place] [address] May, [facility] [place] [facility] [address] [id number] [place] [address] Apr, [facility] [address] [id number] [place] [address] 18 Apr, 2011 [facility] [address] [id number] [place] [address] Apr, [facility] [place] [facility] [address] [id number] [place] [address] Apr, [facility] [place] [facility] [address] [id number] [place] [address] Apr, [facility] [place] [facility] [address] [id number] [place] [address] Mar, [facility] [place] [facility] [address] [id number] [place] [address] Mar, [facility] [place] [facility] [address] [id number] [place] [address] Mar, [facility] [place] [facility] [address] [id number] [place] [address] Mar, [facility] [place] [facility] [address] [id number] [place] [address] Mar, [facility] [place] [facility] [address] [id number] [place] [address] Mar, [facility] [place] [facility] [address] [id number] [place] [address] Mar, [facility] [place] [facility] [address] [id number] [place] [address] 29 Feb, 2011 [facility] [place] [facility] [address] [id number] [place] [address] Feb, [facility] [place] [facility] [address] [id number] [place] [address] Feb, [facility] [place] [facility] [address] [id number] [place] [address] Feb, [facility] [place] [facility] [address] [id number] [place] [address] 16 Feb, 2011 [facility] [place] [facility] [address] [id number] [place] [address] 14 Feb, 2011 [facility] [place] [facility] [address] [id number] [place] [address] 10 Feb, 2011 [facility] [place] [facility] [address] [id number] [place] [address] 31 Jan, 2011 [facility] [place] [facility] [address] [id number] [place] [address] 31 Jan, 2011 [facility] [place] [facility] [address] [id number] [place] [address] 31 Jan, 2011 [facility] [place] [facility] [address] [id number] [place] [address] 18 Jan, 2011 [facility] [place] [facility] [address] [id number] [place] [address] 17 Jan, 2011 [facility] [place] [facility] [address] [id number] [place] [address] 17 Jan, 2011 [facility] [address] [id number] [place] [address] Jun, [facility] [place] [facility] [address] [id number] [place] [address] 30 Mar, 2010 [facility] [place] [facility] [address] [id number] [place] [address] 20 Mar, 2010 [facility] [place] [facility] [address] [id number] [place] [address] 14 Mar, 2010 [facility] [place] [facility] [address] [id number] [place] [address] 14 Mar, 2010 [facility] [place] [facility] [address] [id number] [place] [address] 13 Mar, 2010 [facility] [place] [facility] [address] [id number] [place] [address] 07 Mar, 2010 [facility] [place] [facility] [address] [id number] [place] [address] 02 Mar, 2010 [facility] [place] [facility] [address] [id number] [place] [address] Mar, [facility] [place] [facility] [address] [id number] [place] [address] 30 Feb, 2010 [facility] [place] [facility] [address] [id number] [place] [address] 29 Feb, 2010 [facility] [place] [facility] [address] [id number] [place] [address] 17 Feb, 2010 [facility] [place] [facility] [address] [id number] [place] [address] 17 Feb, 2010 [facility] [place] [facility] [address] [id number] [place] [address] 16 Feb, 2010 [facility] [place] [facility] [address] [id number] [place] [address] 08 Feb, 2010 [facility] [place] [facility] [address] [id number] [place] [address] Feb, [facility] [place] [facility] [address] [id number] [place] [address] Feb, [facility] [place] [facility] [address] [id number] [place] [address] Jan, [facility] [place] [facility] [address] [id number] [place] [address] Jan, [facility] [place] [facility] [address] [id number] [place] [address] Jan, [facility] [place] [facility] [address] [id number] [place] [address] Jan, [facility] [place] [facility] [address] [id number] [place] [address] Mar, [facility] [place] [facility] [address] [id number] [place] [address] Mar, [facility] [place] [facility] [address] [id number] [place] [address] Mar, [facility] [place] [facility] [address] [id number] [place] [address] Mar, [facility] [address] [id number] [address] 14 Mar, 2009 [facility] [address] [id number] [address] Mar, [facility] [address] [id number] [address] Feb, [facility] [id number] [address] Feb, [facility] [address] [id number] [address] Jan, [facility] [id number] [address] Sep, [facility] [address] [id number] [address] May, IMMUNIZATIONS No Known Immunizations SOCIAL HISTORY Never Assessed REASON FOR VISIT Care Home Visit PLAN OF CARE Activity Details Follow Up prn Reason: VITAL SIGNS MEDICATIONS Medication Instructions Dosage Frequency Start Date End Date Duration Status Xanax 2 MG Orally 1/2 tab four times a day 2 tablet Dec, Active RESULTS No Results PROCEDURES Procedure Date Ordered Result Body Site [facility] VISIT ESTABLISHED PATIENT Dec 30, 2017 INSTRUCTIONS MEDICATIONS ADMINISTERED No Known Medications MEDICAL (GENERAL) HISTORY Type Description Date Medical History Hypertension Medical History Hyperlipidemia Medical History chronic back pain since age 26 Medical History Anxiety Medical History Hx of Spontaneous Pneumothorax Surgical History right knee arthroscopy Surgical History colon resection Surgical History tonsillectomy Surgical History Left ear surgery Hospitalization History [facility] in [place]- Spontaneous Pneumothorax Hospitalization History [facility]- Colon resection Hospitalization History [facility] - diarrhea/ couldnt urinate nov 2017
--- OUTSIDE RECORDS SUMMARY | 2018-10-15 01:28 | XMS REPORT ---
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 Name Role Phone NANCY MARIE Unavailable PROBLEMS Type Condition ICD9-CM Code SPG40-CW Code Onset Dates Condition Status SNOMED Code Problem Anxiety F41.9 Active 97820477 Problem Chronic pain G89.29 Active 73670486 Problem Constipation K59.00 Active 35608949 Problem Insomnia G47.00 Active 937984490 Problem HTN (hypertension) I10 Active 24357984 Problem Chronic kidney disease, stage III (moderate) N18.3 Active 225364645 Problem Primary insomnia F51.01 Active 1945641 Problem Thoracic back pain, unspecified back pain laterality, unspecified chronicity M54.6 Active 051253669 Problem Hyperlipidemia E78.5 Active 70199547 Problem Environmental allergies Z91.09 Active 388213001 Problem Vitamin D deficiency E55.9 Active 19617182 ALLERGIES No Information ENCOUNTERS Encounter Location Date Diagnosis [facility] [id number] [place] [address] Dec, Diarrhea of presumed infectious origin R19.7 [facility] [id number] [place] [address] 19 Dec, 2017 Diarrhea of presumed infectious origin R19.7 [place] [id number] [place] [address] 18 Dec, 2017 Thoracic back pain, unspecified back pain laterality, unspecified chronicity M54.6 [place] [place] [id number] [place] [address] 17 Dec, 2017 [place] [id number] [place] [address] 17 Dec, 2017 Anxiety F41.9 and Thoracic back pain, unspecified back pain laterality, unspecified chronicity M54.6 [place] [address] [address] Dec, Diarrhea of presumed infectious origin R19.7 [place] [address] [address] Dec, [facility] [place] [id number] [place] [address] Dec, Anxiety F41.9 and Thoracic back pain, unspecified back pain laterality, unspecified chronicity M54.6 [facility] [place] [id number] [place] [address] Dec, Anxiety F41.9 and Thoracic back pain, unspecified back pain laterality, unspecified chronicity M54.6 [facility] [address] [place], [place] [id number] Dec, Diarrhea of presumed infectious origin R19.7 ; Anxiety F41.9 ; Thoracic back pain, unspecified back pain laterality, unspecified chronicity M54.6 and HTN (hypertension) I10 [id number] [place] [address] Dec, Anxiety F41.9 [facility] [employer] [address] [place], [place] [id number] Dec, Anxiety F41.9 ; Diarrhea of presumed infectious origin R19.7 ; Generalized abdominal pain R10.84 and Localized edema R60.0 [place] [id number] [place] [address] Nov, [facility] [employer] [address] [place] [id number] Nov, Anxiety F41.9 ; Urinary retention R33.9 ; Diarrhea of presumed infectious origin R19.7 ; Weakness R53.1 ; Acute kidney failure, unspecified N17.9 ; Chronic kidney disease, stage III (moderate) N18.3 and Thoracic back pain, unspecified back pain laterality, unspecified chronicity M54.6 [facility] [place] [id number] [place] [address] Oct, Thoracic back pain, unspecified back pain laterality, unspecified chronicity M54.6 and Anxiety F41.9 [facility] [place] [id number] [place] [address] Sep, Thoracic back pain, unspecified back pain laterality, unspecified chronicity M54.6 and Anxiety F41.9 [place] [address] [address] Sep, Thoracic back pain, unspecified back pain laterality, unspecified chronicity M54.6 ; Anxiety F41.9 and Encounter for medication monitoring Z51.81 [facility] [place] [id number] [place] [address] August, [place] [address] [address] August, Thoracic back pain, unspecified back pain laterality, unspecified chronicity M54.6 and Anxiety F41.9 [facility] [place] [id number] [place] [address] August, Hyperlipidemia E78.5 and HTN (hypertension) I10 [facility] [place] [id number] [place] [address] August, [facility] [place] [id number] [place] [address] August, Medicare welcome exam Z00.00 ; Chronic kidney failure N18.9 ; Anxiety F41.9 ; Chronic pain G89.29 ; Insomnia G47.00 ; Hyperlipidemia E78.5 ; HTN (hypertension) I10 and Thoracic back pain, unspecified back pain laterality, unspecified chronicity M54.6 [place] [place] [id number] [place] [address] Jul, [facility] [place] [id number] [place] [address] Jul, [facility] [place] [id number] [address] Jul, [place] [place] [id number] [place] [address] Jul, Anxiety F41.9 [place] [place] [id number] [place] [address] Jul, Thoracic back pain, unspecified back pain laterality, unspecified chronicity M54.6 and Anxiety F41.9 [place] [place] [id number] [place] [address] Jun, Thoracic back pain, unspecified back pain laterality, unspecified chronicity M54.6 and Anxiety F41.9 [place] [place] [id number] [place] [address] 12 May, 2017 Thoracic back pain, unspecified back pain laterality, unspecified chronicity M54.6 and Anxiety F41.9 [place] [place] [id number] [place] [address] Apr, Thoracic back pain, unspecified back pain laterality, unspecified chronicity M54.6 and Anxiety F41.9 [place] [id number] [place] [address] Mar, [place] [id number] [place] [address] 14 Mar, 2017 Thoracic back pain, unspecified back pain laterality, unspecified chronicity M54.6 and Anxiety F41.9 [place] [address] [place] [address] 14 Mar, 2017 Thoracic back pain, unspecified back pain laterality, unspecified chronicity M54.6 ; HTN (hypertension) I10 ; Hyperlipidemia E78.5 and Anxiety F41.9 [place] [address] [place] [address] Feb, Thoracic back pain, unspecified back pain laterality, unspecified chronicity M54.6 and Anxiety F41.9 [facility] [place] [id number] [place] [address] Nov, [facility] [place] [id number] [place] [address] Oct, [facility] [place] [id number] [place] [address] Oct, Thoracic back pain, unspecified back pain laterality, unspecified chronicity M54.6 [facility] [place] [id number] [place] [address] Oct, HTN (hypertension) I10 ; Constipation K59.00 ; Hyperlipidemia E78.5 ; Thoracic back pain, unspecified back pain laterality, unspecified chronicity M54.6 ; Chronic pain G89.29 ; Anxiety F41.9 ; Chronic kidney failure N18.9 ; Environmental allergies Z91.09 ; Vitamin D deficiency E55.9 and Primary insomnia F51.01 [facility] [place] [id number] [place] [address] Sep, Anxiety F41.9 [facility] [place] [id number] [place] [address] Sep, [facility] [place] [id number] [place] [address] August, Anxiety F41.9 [facility] [place] [id number] [place] [address] August, [facility] [place] [id number] [place] [address] Jul, Anxiety F41.9 [facility] [place] [id number] [place] [address] Jul, [facility] [place] [id number] [place] [address] Jun, Anxiety F41.9 [facility] [place] [id number] [place] [address] Jun, [facility] [place] [address], [place] [address] May, [facility] [place] [id number] [address] May, [facility] [place] [address], [place] [address] May, [facility] [place] [id number] [place] [address] Apr, [facility] [place] [address] [place] [address] Apr, [facility] [place] [id number] [place] [address] Apr, Anxiety F41.9 [facility] [place] [id number] [place] [address] Apr, Anxiety F41.9 [facility] [place] [id number] [address] Apr, [facility] [place] [id number] [place] [address] Mar, HTN (hypertension) I10 ; Tremor R25.1 ; Hypercholesterolemia E78.0 ; Constipation K59.00 ; Chronic pain G89.29 ; Hyperlipidemia E78.5 ; Insomnia G47.00 ; Anxiety F41.9 and Thoracic back pain, unspecified back pain laterality, unspecified chronicity M54.6 [facility] [place] [address], [place] [address] Mar, Tremor R25.1 ; HTN (hypertension) I10 ; Hypercholesterolemia E78.0 ; Constipation K59.00 ; Chronic pain G89.29 ; Hyperlipidemia E78.5 ; Insomnia G47.00 ; Anxiety F41.9 and Thoracic back pain, unspecified back pain laterality, unspecified chronicity M54.6 [facility] [place] [address], [place] [address] Mar, [facility] [place] [address] [facility] [id number] [place] [address] Mar, [facility] [place] [address] [facility] [id number] [place] [address] Feb, [facility] [place] [address] [facility] [id number] [place] [address] Jan, [facility] [place] [address] [facility] [id number] [place] [address], [place] [address] Jan, [facility] [place] [address] [facility] [id number] [place] [address] Dec, [facility] [place] [address] [facility] [id number] [place] [address] Nov, [facility] [place] [id number] [place] [address] Nov, [facility] [place] [id number] [place] [address] Oct, Anxiety F41.9 [facility] [place] [address] [facility] [id number], [place] [address] Oct, Chronic pain G89.29 [facility] [place] [address], [place] [address] 24 Sep, 2015 [facility] [place] [address] [facility] [id number], [place] [address] Sep, [facility] [place] [address] [facility] [id number], [place] [address] Sep, [facility] [place] [address] [facility] [id number], [place] [address] Sep, [facility] [place] [address] [facility] [id number], [place] [address] 16 Sep, 2015 Chronic pain syndrome G89.4 [facility] [place] [address] [facility] [id number], [place] [address] Sep, HTN (hypertension) I10 ; Chronic pain G89.29 ; Hypercholesterolemia E78.0 ; Chronic kidney failure N18.9 ; Constipation, unspecified constipation type K59.00 ; Anxiety F41.9 and Thoracic back pain, unspecified back pain laterality, unspecified chronicity M54.6 [facility] [place] [id number] [place] [address] August, Chronic pain syndrome G89.4 [facility] [place] [address] [address] August, Chronic pain syndrome G89.4 [facility] [place] [address] [address] Jul, Anxiety disorder, unspecified F41.9 and Chronic pain syndrome G89.4 [facility] [place] [address] [address] Jul, Insomnia, unspecified G47.00 and Chronic pain syndrome G89.4 [facility] [place] [id number] [place] [address] Jul, Allergic rhinitis J30.9 [facility] [place] [address] [address] Jul, Constipation, unspecified K59.00 [facility] [place] [id number] [place] [address] Jul, [facility] [place] [id number] [place] [address] Jun, [facility] [place] [id number] [place] [address] Jun, [facility] [place] [address] [address] Jun, [facility] [place] [id number] [place] [address] Jun, [facility] [place] [address] [address] Jun, [facility] [place] [id number] [place] [address] Jun, [facility] [place] [id number] [place] [address] May, [facility] [place] [id number] [place] [address] May, [facility] [place] [id number] [place] [address] May, Anxiety F41.9 ; Insomnia G47.00 ; Hyperlipidemia E78.5 ; Chronic pain G89.29 ; HTN (hypertension) I10 ; Environmental allergies V15.09 and Constipation 564.00 [facility] [place] [id number] [place] [address] Apr, [facility] [place] [id number] [place] [address] Apr, [facility] [place] [id number] [place] [address] Apr, [facility] [place] [id number] [place] [address] Mar, [facility] [place] [id number] [place] [address] Mar, [facility] [place] [id number] [place] [address] Mar, [facility] [place] [id number] [place] [address] Feb, [facility] [place] [id number] [place] [address] Feb, [facility] [place] [id number] [place] [address] Feb, [facility] [place] [id number] [place] [address] Jan, HTN (hypertension) I10 ; Constipation K59.00 ; Chronic pain G89.29 ; Hyperlipidemia E78.5 ; Hypercholesterolemia E78.0 ; Insomnia G47.00 and Anxiety F41.9 [place] [id number] [place] [address] Jan, [address] [address] Dec, [place] [address] [address] Nov, [address] [address] Oct, Chronic kidney disease, unspecified 585.9 ; Chronic pain syndrome 338.4 ; Hyperlipidemia 272.4 and Essential hypertension 401.[address] [address] Oct, Chronic kidney disease 585.9 [place] [id number] [place] [address] Oct, [address] [address] Oct, Chronic kidney disease, unspecified 585.9 ; Hypercalcemia 275.42 ; Hyperlipidemia 272.4 ; Essential hypertension 401.9 ; Chronic pain syndrome 338.4 ; Insomnia 780.52 ; Constipation 564.00 ; Environmental allergies V15.09 and Anxiety 300.00 [place] [id number] [place] [address] Oct, Chronic kidney disease 585.[address] [address] Oct, [address] [address] Oct, Chronic kidney disease 585.9 and Hyperlipidemia 272.[address] [address] 10 Oct, 2014 [facility] [address] [id number] [place] [address] 10 Oct, 2014 [facility] [address] [id number] [place] [address] 18 Sep, 2014 [facility] [address] [facility] [id number] [place] [address] 15 Sep, 2014 [facility] [address] [id number] [place] [address] Sep, Chronic kidney disease 585.9 and Hyperlipidemia 272.4 [facility] [address] [id number] [place] [address] Sep, [facility] [address] [facility] [id number] [place] [address] August, [facility] [address] [facility] [id number] [place] [address] August, [facility] [address] [facility] [id number] [place] [address] 14 Jul, 2014 [facility] [address] [id number] [place] [address] Jul, [facility] [address] [facility] [id number] [place] [address] Jun, [facility] [address] [id number] [place] [address] Jun, [facility] [place] [facility] [address] [id number] [place] [address] 16 Jun, 2014 [facility] [place] [facility] [address] [id number] [place] [address] 16 Jun, 2014 [facility] [place] [facility] [address] [facility] [id number] [place] [address] Jun, [facility] [place] [facility] [address] [facility] [id number] [place] [address] Jun, [facility] [place] [facility] [address] [id number] [place] [address] Jun, [facility] [place] [facility] [address] [id number] [place] [address] Jun, [facility] [place] [facility] [address] [id number] [place] [address] May, [facility] [place] [facility] [address] [id number] [place] [address] May, [facility] [place] [facility] [address] [id number] [place] [address] May, [facility] [place] [facility] [address] [id number] [place] [address] May, [facility] [place] [facility] [address] [id number] [place] [address] Apr, [facility] [place] [facility] [address] [id number] [place] [address] Apr, [facility] [place] [facility] [address] [id number] [place] [address] Apr, [facility] [place] [facility] [address] [id number] [place] [address] Apr, [facility] [place] [facility] [address] [id number] [place] [address] Apr, [facility] [place] [facility] [address] [id number], [place] [address] Apr, [facility] [place] [facility] [address] [id number] [place] [address] Apr, [facility] [place] [facility] [address] [id number] [place] [address] Apr, [facility] [place] [facility] [address] [id number] [place] [address] Apr, [facility] [place] [facility] [address] [id number] [place] [address] Apr, [facility] [place] [facility] [address] [id number] [place] [address] Apr, [facility] [place] [facility] [address] [id number] [place] [address] Mar, [facility] [place] [facility] [address] [id number] [place] [address] Mar, [facility] [place] [facility] [address] [id number] [place] [address] Feb, [facility] [place] [facility] [address] [id number] [place] [address] Feb, [facility] [place] [facility] [address] [id number] [place] [address] Feb, [facility] [place] [facility] [address] [id number] [place] [address] Feb, [facility] [place] [facility] [address] [id number] [place] [address] Feb, [facility] [place] [facility] [address] [id number] [place] [address] Feb, [facility] [place] [facility] [address] [facility] [id number] [place] [address] Feb, [facility] [place] [facility] [address] [id number] [place] [address] Feb, [facility] [place] [facility] [address] [id number], [place] [address] Feb, [facility] [place] [facility] [address] [id number] [place] [address] Feb, [facility] [place] [facility] [address] [id number] [place] [address] Jan, [facility] [place] [facility] [address] [id number] [place] [address] Jan, [facility] [place] [facility] [address] [id number] [place] [address] Jan, [facility] [place] [facility] [address] [id number] [place] [address] Jan, [facility] [place] [facility] [address] [id number] [place] [address] Jan, [facility] [place] [facility] [address] [id number] [place] [address] 24 Jan, 2014 [facility] [place] [facility] [address] [id number] [place] [address] Jan, [facility] [place] [facility] [address] [id number] [place] [address] 17 Jan, 2014 [facility] [place] [facility] [address] [id number] [place] [address] 16 Jan, 2014 [facility] [place] [facility] [address] [id number] [place] [address] Jan, [facility] [place] [facility] [address] [id number] [place] [address] 06 Jan, 2014 [facility] [place] [facility] [address] [id number] [place] [address] 26 Dec, 2013 [facility] [place] [facility] [address] [id number] [place] [address] 26 Dec, 2013 [facility] [place] [facility] [address] [id number] [place] [address] 19 Dec, 2013 [facility] [place] [facility] [address] [id number] [place] [address] 19 Dec, 2013 [facility] [place] [facility] [address] [id number] [place] [address] 18 Dec, 2013 [facility] [place] [facility] [address] [id number] [place] [address] 18 Dec, 2013 [facility] [place] [facility] [address] [id number] [place] [address] Dec, [facility] [place] [facility] [address] [id number] [place] [address] Dec, [facility] [place] [facility] [address] [id number] [place] [address] Nov, [facility] [place] [facility] [address] [id number] [place] [address] Nov, [facility] [place] [facility] [address] [id number] [place] [address] Nov, [facility] [place] [facility] [address] [id number] [place] [address] Nov, [facility] [place] [facility] [address] [id number] [place] [address] Nov, [facility] [place] [facility] [address] [id number] [place] [address] Nov, [facility] [place] [facility] [address] [id number] [place] [address] Nov, [facility] [place] [facility] [address] [id number] [place] [address] Nov, [facility] [place] [facility] [address] [id number] [place] [address] Oct, [facility] [place] [facility] [address] [id number] [place] [address] Oct, [facility] [place] [facility] [address] [id number] [place] [address] Oct, [facility] [place] [facility] [address] [id number] [place] [address] Oct, [facility] [place] [facility] [address] [id number] [place] [address] Sep, [facility] [place] [facility] [address] [id number] [place] [address] Sep, [facility] [place] [facility] [address] [id number] [place] [address] Sep, [facility] [address] [id number] [place] [address] Sep, [facility] [address] [id number] [place] [address] Sep, [facility] [address] [id number] [place] [address] Sep, [facility] [place] [facility] [address] [id number] [place] [address] Sep, [facility] [address] [id number] [place] [address] Sep, [facility] [address] [id number] [place] [address] August, [facility] [address] [id number] [place] [address] August, [facility] [address] [id number] [place] [address] August, [facility] [address] [id number] [place] [address] August, [facility] [address] [id number] [place] [address] August, [facility] [place] [facility] [address] [id number] [place] [address] August, [facility] [place] [facility] [address] [id number] [place] [address] August, [facility] [place] [facility] [address] [id number] [place] [address] August, [facility] [place] [facility] [address] [id number] [place] [address] August, [facility] [place] [facility] [address] [id number] [place] [address] August, [facility] [place] [facility] [address] [id number] [place] [address] Jul, [facility] [place] [facility] [address] [id number] [place] [address] Jul, [facility] [place] [facility] [address] [id number] [place] [address] Jul, [facility] [place] [facility] [address] [id number] [place] [address] Jul, [facility] [place] [facility] [address] [id number] [place] [address] Jul, [facility] [place] [facility] [address] [id number] [place] [address] Jul, [facility] [place] [facility] [address] [id number] [place] [address] Jul, [facility] [place] [facility] [address] [id number] [place] [address] Jul, [facility] [place] [facility] [address] [id number] [place] [address] Jun, [facility] [place] [facility] [address] [id number] [place] [address] Jun, [facility] [place] [facility] [address] [id number] [place] [address] Jun, [facility] [place] [facility] [address] [id number] [place] [address] Jun, [facility] [place] [facility] [address] [id number] [place] [address] Jun, [facility] [place] [facility] [address] [id number] [place] [address] Jun, [facility] [place] [facility] [address] [id number] [place] [address] May, [facility] [place] [facility] [address] [id number] [place] [address] May, [facility] [place] [facility] [address] [id number] [place] [address] May, [facility] [place] [facility] [address] [id number] [place] [address] May, [facility] [place] [facility] [address] [id number] [place] [address] May, [facility] [place] [facility] [address] [id number] [place] [address] May, [facility] [place] [facility] [address] [id number] [place] [address] May, [facility] [place] [facility] [address] [id number] [place] [address] Apr, [facility] [place] [facility] [address] [id number] [place] [address] Apr, [facility] [place] [facility] [address] [id number] [place] [address] Apr, [facility] [place] [facility] [address] [id number] [place] [address] Apr, [facility] [place] [facility] [address] [id number] [place] [address] Apr, [facility] [place] [facility] [address] [id number] [place] [address] Apr, [facility] [place] [facility] [address] [id number] [place] [address] Mar, [facility] [place] [facility] [address] [id number] [place] [address] Mar, [facility] [place] [facility] [address] [id number] [place] [address] Mar, [facility] [place] [facility] [address] [id number] [place] [address] Mar, [facility] [place] [facility] [address] [id number] [place] [address] Mar, [facility] [address] [id number] [place] [address] Mar, [facility] [address] [id number] [place] [address] Mar, [facility] [address] [id number] [place] [address] Mar, [facility] [address] [id number] [place] [address] Mar, [facility] [address] [id number] [place] [address] Mar, [facility] [address] [id number] [place] [address] Feb, [facility] [address] [id number] [place] [address] Feb, [facility] [address] [id number] [place] [address] Feb, [facility] [address] [id number] [place] [address] Feb, [facility] [address] [id number] [place] [address] 14 Feb, 2013 [facility] [place] [facility] [address] [id number], [place] [address] 14 Feb, 2013 [facility] [place] [facility] [address] [id number] [place] [address] Feb, [facility] [place] [facility] [address] [id number] [place] [address] Feb, [facility] [place] [facility] [address] [id number] [place] [address] 08 Feb, 2013 [facility] [place] [facility] [address] [id number], [place] [address] Feb, [facility] [place] [facility] [address] [id number] [place] [address] Jan, [facility] [place] [facility] [address] [id number] [place] [address] Jan, [facility] [place] [facility] [address] [id number] [place] [address] Jan, [facility] [place] [facility] [address] [id number] [place] [address] Jan, [facility] [place] [facility] [address] [id number] [place] [address] Jan, [facility] [place] [facility] [address] [id number] [place] [address] Jan, [facility] [place] [facility] [address] [id number] [place] [address] Jan, [facility] [place] [facility] [address] [id number] [place] [address] Jan, [facility] [place] [facility] [address] [id number] [place] [address] Jan, [facility] [place] [facility] [address] [id number] [place] [address] Dec, [facility] [place] [facility] [address] [id number], [place] [address] Dec, [facility] [place] [facility] [address] [id number], [place] [address] 21 Dec, 2012 [facility] [place] [facility] [address] [id number] [place] [address] 13 Dec, 2012 [facility] [place] [facility] [address] [id number] [place] [address] Nov, [facility] [place] [facility] [address] [id number] [place] [address] Nov, [facility] [place] [facility] [address] [id number] [place] [address] Nov, [facility] [address] [id number] [place] [address] Nov, [facility] [address] [id number] [place] [address] Nov, [facility] [address] [id number] [place] [address] Nov, [facility] [address] [id number] [place] [address] Oct, [facility] [address] [id number] [place] [address] Oct, [facility] [address] [id number] [place] [address] Oct, [facility] [address] [id number] [place] [address] Oct, [facility] [address] [id number] [place] [address] Sep, [facility] [address] [id number] [place] [address] Sep, [facility] [address] [id number] [place] [address] Sep, [facility] [address] [id number] [place] [address] Sep, [facility] [address] [id number] [place] [address] Sep, [facility] [place] [facility] [address] [id number] [place] [address] August, [facility] [address] [id number] [place] [address] August, [facility] [address] [id number] [place] [address] Jul, [facility] [address] [id number] [place] [address] Jul, [facility] [place] [facility] [address] [id number] [place] [address] 15 Jul, 2012 [facility] [place] [facility] [address] [id number] [place] [address] Jul, [facility] [place] [facility] [address] [id number] [place] [address] Jul, [facility] [address] [id number] [place] [address] Jun, [facility] [place] [facility] [address] [id number] [place] [address] Jun, [facility] [place] [facility] [address] [id number] [place] [address] Jun, [facility] [place] [facility] [address] [id number] [place] [address] Jun, [facility] [place] [facility] [address] [id number] [place] [address] Jun, [facility] [place] [facility] [address] [id number] [place] [address] 28 May, 2012 [facility] [place] [facility] [address] [id number] [place] [address] May, [facility] [place] [facility] [address] [id number], [place] [address] May, [facility] [place] [facility] [address] [id number] [place] [address] May, [facility] [place] [facility] [address] [id number] [place] [address] 20 May, 2012 [facility] [place] [facility] [address] [id number] [place] [address] 14 May, 2012 [facility] [place] [facility] [address] [id number] [place] [address] 13 May, 2012 [facility] [address] [id number] [place] [address] 08 May, 2012 [facility] [address] [id number] [place] [address] May, [facility] [address] [id number] [place] [address] Apr, [facility] [address] [id number] [place] [address] Apr, [facility] [address] [id number] [place] [address] Apr, [facility] [address] [id number] [place] [address] Apr, [facility] [address] [id number] [place] [address] Apr, [facility] [address] [id number] [place] [address] Mar, [facility] [address] [id number] [place] [address] Mar, [facility] [address] [id number] [place] [address] Mar, [facility] [address] [id number] [place] [address] Mar, [facility] [address] [id number] [place] [address] Mar, [facility] [address] [id number] [place] [address] Mar, [facility] [address] [id number] [place] [address] Mar, [facility] [address] [id number] [place] [address] Mar, [facility] [place] [facility] [address] [id number] [place] [address] Mar, [facility] [place] [facility] [address] [id number] [place] [address] Mar, [facility] [place] [facility] [address] [id number] [place] [address] 30 Feb, 2012 [facility] [place] [facility] [address] [id number] [place] [address] 30 Feb, 2012 [facility] [place] [facility] [address] [id number] [place] [address] Feb, [facility] [place] [facility] [address] [id number] [place] [address] Feb, [facility] [place] [facility] [address] [id number] [place] [address] Feb, [facility] [place] [facility] [address] [id number] [place] [address] Feb, [facility] [place] [facility] [address] [id number] [place] [address] Feb, [facility] [place] [facility] [address] [id number] [place] [address] Feb, [facility] [place] [facility] [address] [id number] [place] [address] 16 Feb, 2012 [facility] [place] [facility] [address] [id number], [place] [address] 16 Feb, 2012 [facility] [place] [facility] [address] [id number] [place] [address] 13 Feb, 2012 [facility] [place] [facility] [address] [id number] [place] [address] 13 Feb, 2012 [facility] [place] [facility] [address] [id number] [place] [address] 12 Feb, 2012 [facility] [place] [facility] [address] [id number] [place] [address] Feb, [facility] [place] [facility] [address] [id number] [place] [address] Feb, [facility] [place] [facility] [address] [id number] [place] [address] Feb, [facility] [place] [facility] [address] [id number] [place] [address] Feb, [facility] [place] [facility] [address] [id number] [place] [address] Feb, [facility] [place] [facility] [address] [id number] [place] [address] Jan, [facility] [place] [facility] [address] [id number] [place] [address] Jan, [facility] [place] [facility] [address] [id number] [place] [address] Jan, [facility] [place] [facility] [address] [id number] [place] [address] Jan, [facility] [place] [facility] [address] [id number] [place] [address] Jan, [facility] [place] [facility] [address] [facility] [id number] [place] [address] Jan, [facility] [place] [facility] [address] [facility] [id number] [place] [address] Jan, [facility] [place] [facility] [address] [id number], [place] [address] Jan, [facility] [place] [facility] [address] [id number] [place] [address] Jan, [facility] [place] [facility] [address] [facility] [id number], [place] [address] Jan, [facility] [place] [facility] [address] [facility] [id number], [place] [address] 24 Dec, 2011 [facility] [place] [facility] [address] [id number] [place] [address] Dec, [facility] [place] [facility] [address] [id number] [place] [address] Dec, [facility] [place] [facility] [address] [id number] [place] [address] Dec, [facility] [place] [facility] [address] [id number] [place] [address] Nov, [facility] [place] [facility] [address] [id number] [place] [address] Nov, [facility] [place] [facility] [address] [id number] [place] [address] Nov, [facility] [place] [facility] [address] [id number] [place] [address] Nov, [facility] [place] [facility] [address] [id number] [place] [address] Nov, [facility] [place] [facility] [address] [id number] [place] [address] Nov, [facility] [place] [facility] [address] [id number] [place] [address] Oct, [facility] [place] [facility] [address] [id number] [place] [address] Oct, [facility] [place] [facility] [address] [id number] [place] [address] Oct, [facility] [place] [facility] [address] [id number] [place] [address] Oct, [facility] [place] [facility] [address] [id number] [place] [address] Oct, [facility] [place] [facility] [address] [id number] [place] [address] Sep, [facility] [place] [facility] [address] [id number] [place] [address] Sep, [facility] [place] [facility] [address] [id number] [place] [address] Sep, [facility] [place] [facility] [address] [id number] [place] [address] Sep, [facility] [place] [facility] [address] [id number] [place] [address] Sep, [facility] [place] [facility] [address] [id number] [place] [address] August, [facility] [place] [facility] [address] [id number] [place] [address] August, [facility] [place] [facility] [address] [id number] [place] [address] August, [facility] [place] [facility] [address] [id number] [place] [address] August, [facility] [place] [facility] [address] [id number] [place] [address] Jul, [facility] [place] [facility] [address] [id number] [place] [address] 24 Jul, 2011 [facility] [place] [facility] [address] [id number] [place] [address] Jul, [facility] [place] [facility] [address] [id number] [place] [address] 18 Jul, 2011 [facility] [place] [facility] [address] [id number] [address] 18 Jul, 2011 [facility] [place] [facility] [address] [id number] [place] [address] 12 Jul, 2011 [facility] [place] [facility] [address] [id number] [place] [address] 11 Jul, 2011 [facility] [place] [facility] [address] [id number] [place] [address] 10 Jul, 2011 [facility] [place] [facility] [address] [id number] [place] [address] 09 Jul, 2011 [facility] [address] [id number] [place] [address] Jul, [facility] [address] [id number] [place] [address] 05 Jul, 2011 [facility] [address] [id number] [place] [address] Jul, [facility] [address] [id number] [place] [address] Jul, [facility] [address] [id number] [place] [address] Jul, [facility] [address] [id number] [place] [address] Jun, [facility] [address] [id number] [place] [address] Jun, [facility] [address] [id number] [place] [address] Jun, [facility] [address] [id number] [place] [address] 16 Jun, 2011 [facility] [address] [id number] [place] [address] May, [facility] [address] [id number] [place] [address] 16 May, 2011 [facility] [address] [id number] [place] [address] May, [facility] [place] [facility] [address] [id number] [place] [address] Apr, [facility] [address] [id number] [place] [address] 18 Apr, 2011 [facility] [address] [id number] [place] [address] Apr, [facility] [place] [facility] [address] [id number] [place] [address] Apr, [facility] [place] [facility] [address] [id number] [place] [address] Apr, [facility] [place] [facility] [address] [id number] [place] [address] Mar, [facility] [place] [facility] [address] [id number] [place] [address] Mar, [facility] [place] [facility] [address] [id number] [place] [address] Mar, [facility] [place] [facility] [address] [id number] [place] [address] Mar, [facility] [place] [facility] [address] [id number] [place] [address] Mar, [facility] [place] [facility] [address] [id number] [place] [address] Mar, [facility] [place] [facility] [address] [id number] [place] [address] Mar, [facility] [place] [facility] [address] [id number] [place] [address] 29 Feb, 2011 [facility] [place] [facility] [address] [id number] [place] [address] Feb, [facility] [place] [facility] [address] [id number] [place] [address] Feb, [facility] [place] [facility] [address] [id number] [place] [address] Feb, [facility] [place] [facility] [address] [id number] [place] [address] 16 Feb, 2011 [facility] [place] [facility] [address] [id number] [place] [address] 14 Feb, 2011 [facility] [place] [facility] [address] [id number] [place] [address] 10 Feb, 2011 [facility] [place] [facility] [address] [id number] [place] [address] 31 Jan, 2011 [facility] [place] [facility] [address] [id number] [place] [address] 31 Jan, 2011 [facility] [place] [facility] [address] [id number] [place] [address] 31 Jan, 2011 [facility] [place] [facility] [address] [id number] [place] [address] 18 Jan, 2011 [facility] [place] [facility] [address] [id number] [place] [address] 17 Jan, 2011 [facility] [place] [facility] [address] [id number] [place] [address] 17 Jan, 2011 [facility] [address] [id number] [place] [address] Jun, [facility] [place] [facility] [address] [id number] [place] [address] 30 Mar, 2010 [facility] [place] [facility] [address] [id number] [place] [address] 20 Mar, 2010 [facility] [place] [facility] [address] [id number] [place] [address] 14 Mar, 2010 [facility] [place] [facility] [address] [id number] [place] [address] 14 Mar, 2010 [facility] [place] [facility] [address] [id number] [place] [address] 13 Mar, 2010 [facility] [place] [facility] [address] [id number] [place] [address] 07 Mar, 2010 [facility] [place] [facility] [address] [id number] [place] [address] 02 Mar, 2010 [facility] [place] [facility] [address] [id number] [place] [address] Mar, [facility] [place] [facility] [address] [id number] [place] [address] 30 Feb, 2010 [facility] [place] [facility] [address] [id number] [place] [address] 29 Feb, 2010 [facility] [place] [facility] [address] [id number] [place] [address] 17 Feb, 2010 [facility] [place] [facility] [address] [id number] [place] [address] 17 Feb, 2010 [facility] [place] [facility] [address] [id number] [place] [address] 16 Feb, 2010 [facility] [place] [facility] [address] [id number] [place] [address] 08 Feb, 2010 [facility] [place] [facility] [address] [id number] [place] [address] Feb, [facility] [place] [facility] [address] [id number] [place] [address] Feb, [facility] [place] [facility] [address] [id number] [place] [address] Jan, [facility] [place] [facility] [address] [id number] [place] [address] Jan, [facility] [place] [facility] [address] [id number] [place] [address] Jan, [facility] [place] [facility] [address] [id number] [place] [address] Jan, [facility] [place] [facility] [address] [id number] [place] [address] Mar, [facility] [place] [facility] [address] [id number] [place] [address] Mar, [facility] [place] [facility] [address] [id number] [place] [address] Mar, [facility] [place] [facility] [address] [id number] [place] [address] Mar, [facility], [place] [address] [facility] [id number] [address] 14 Mar, 2009 [facility], [place] [id number], [place] [address] Mar, [facility] [place] [address] [id number] [address] Feb, [facility], [place] [id number], [place] [address] Feb, [facility], [place] [address] [id number] [address] Jan, [facility], [place] [id number], [place] [address] Sep, [facility], [place] [address] [id number], [place] [address] May, IMMUNIZATIONS No Known Immunizations SOCIAL HISTORY Never Assessed REASON FOR VISIT Controlled Med Refill PLAN OF CARE VITAL SIGNS MEDICATIONS Medication Instructions Dosage Frequency Start Date End Date Duration Status Klonopin 0.5 MG Orally twice a day 1 tablet 12h Nov, 28 days Active RESULTS No Results PROCEDURES [...] Surgical History Left ear surgery Hospitalization History [facility] in [place]- Spontaneous Pneumothorax Hospitalization History [facility]- Colon resection Hospitalization History via [facility] - diarrhea/ couldnt urinate nov 2017
[2018-10-15 01:30] LABS: BASOPHILS # (AUTO) 0.1 10^3/uL (0.0-0.1); BASOPHILS % (AUTO) 0 % (0-10); EOSINOPHILS % (AUTO) 0 % (0-10); HEMATOCRIT 40 % (40-54); HEMOGLOBIN 13.5 G/DL (13.3-17.7); LYMPHOCYTES # (AUTO) 1.1 X 10^3 (1.0-4.0); LYMPHOCYTES % (AUTO) 9 % (12-44); MEAN CORPUSCULAR HEMOGLOBIN 29 PG (25-34); MEAN CORPUSCULAR HGB CONC 33 G/DL (32-36); MEAN CORPUSCULAR VOLUME 86 FL (80-99); MEAN PLATELET VOLUME 8.7 FL (7.4-10.4); MONOCYTES # (AUTO) 1.1 X 10^3 (0.0-1.0); MONOCYTES % (AUTO) 8 % (0-12); NEUTROPHILS # (AUTO) 11.2 X 10^3 (1.8-7.8); NEUTROPHILS % (AUTO) 83 % (42-75); PLATELET COUNT 315 10^3/uL (130-400); RED CELL DISTRIBUTION WIDTH 15.2 % (10.0-14.5); WHITE BLOOD COUNT 13.4 10^3/uL (4.3-11.0)
--- OUTSIDE RECORDS SUMMARY | 2018-10-15 01:30 | XMS REPORT ---
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 First Responder Name Role Phone NANCY MARIE Unavailable PROBLEMS Type Condition ICD9-CM Code ASS06-XO Code Onset Dates Condition Status SNOMED Code Problem Anxiety F41.9 Active 94697269 Problem Chronic pain G89.29 Active 77512285 Problem Constipation K59.00 Active 19733104 Problem Insomnia G47.00 Active 575484188 Problem HTN (hypertension) I10 Active 35569401 Problem Chronic kidney disease, stage III (moderate) N18.3 Active 526552033 Problem Primary insomnia F51.01 Active 4692442 Problem Thoracic back pain, unspecified back pain laterality, unspecified chronicity M54.6 Active 612083935 Problem Hyperlipidemia E78.5 Active 06611352 Problem Environmental allergies Z91.09 Active 213285268 Problem Vitamin D deficiency E55.9 Active 16910341 ALLERGIES No Information ENCOUNTERS Encounter Location Date Diagnosis [place] [id number] [place] [address] Dec, Diarrhea of presumed infectious origin R19.7 [place] [id number] [place] [address] 19 Dec, 2017 Diarrhea of presumed infectious origin R19.7 [place] [id number] [place] [address] 18 Dec, 2017 Thoracic back pain, unspecified back pain laterality, unspecified chronicity M54.6 [place] [id number] [place] [address] 17 Dec, 2017 [place] [id number] [place] [address] 17 Dec, 2017 Anxiety F41.9 and Thoracic back pain, unspecified back pain laterality, unspecified chronicity M54.6 [place] [address] [address] Dec, Diarrhea of presumed infectious origin R19.7 [place] [address] [address] Dec, [place] [id number] [place] [address] Dec, Anxiety F41.9 and Thoracic back pain, unspecified back pain laterality, unspecified chronicity M54.6 [place] [id number] [place] [address] Dec, Anxiety F41.9 and Thoracic back pain, unspecified back pain laterality, unspecified chronicity M54.6 [facility] [employer] [address] [place] [id number] Dec, Diarrhea of presumed infectious origin R19.7 ; Anxiety F41.9 ; Thoracic back pain, unspecified back pain laterality, unspecified chronicity M54.6 and HTN (hypertension) I10 [id number] [place] [address] Dec, Anxiety F41.9 [facility] [employer] [address] [place] [id number] Dec, Anxiety F41.9 ; Diarrhea of presumed infectious origin R19.7 ; Generalized abdominal pain R10.84 and Localized edema R60.0 [place] [id number] [place] [address] Nov, [facility] [employer] [address] [place] [id number] Nov, Anxiety F41.9 ; Urinary retention R33.9 ; Diarrhea of presumed infectious origin R19.7 ; Weakness R53.1 ; Acute kidney failure, unspecified N17.9 ; Chronic kidney disease, stage III (moderate) N18.3 and Thoracic back pain, unspecified back pain laterality, unspecified chronicity M54.6 [place] [id number] [place] [address] Oct, Thoracic back pain, unspecified back pain laterality, unspecified chronicity M54.6 and Anxiety F41.9 [place] [id number] [place] [address] Sep, Thoracic back pain, unspecified back pain laterality, unspecified chronicity M54.6 and Anxiety F41.9 [place] [address] [address] Sep, Thoracic back pain, unspecified back pain laterality, unspecified chronicity M54.6 ; Anxiety F41.9 and Encounter for medication monitoring Z51.81 [place] [id number] [place] [address] August, [place] [address] [address] August, Thoracic back pain, unspecified back pain laterality, unspecified chronicity M54.6 and Anxiety F41.9 [place] [id number] [place] [address] August, Hyperlipidemia E78.5 and HTN (hypertension) I10 [place] [id number] [place] [address] August, [place] [id number] [place] [address] August, Medicare welcome exam Z00.00 ; Chronic kidney failure N18.9 ; Anxiety F41.9 ; Chronic pain G89.29 ; Insomnia G47.00 ; Hyperlipidemia E78.5 ; HTN (hypertension) I10 and Thoracic back pain, unspecified back pain laterality, unspecified chronicity M54.6 [place] [id number] [place] [address] Jul, [place] [id number] [place] [address] Jul, [place] [id number] [address] Jul, [place] [id number] [place] [address] Jul, Anxiety F41.9 [place] [id number] [place] [address] Jul, Thoracic back pain, unspecified back pain laterality, unspecified chronicity M54.6 and Anxiety F41.9 [place] [id number] [place] [address] Jun, Thoracic back pain, unspecified back pain laterality, unspecified chronicity M54.6 and Anxiety F41.9 [place] [id number] [place] [address] 12 May, 2017 Thoracic back pain, unspecified back pain laterality, unspecified chronicity M54.6 and Anxiety F41.9 [place] [id number] [place] [address] Apr, Thoracic back pain, unspecified back pain laterality, unspecified chronicity M54.6 and Anxiety F41.9 [place] [id number] [place] [address] Mar, [place] [id number] [place] [address] 14 Mar, 2017 Thoracic back pain, unspecified back pain laterality, unspecified chronicity M54.6 and Anxiety F41.9 [place] [address] [place] [address] 14 Mar, 2017 Thoracic back pain, unspecified back pain laterality, unspecified chronicity M54.6 ; HTN (hypertension) I10 ; Hyperlipidemia E78.5 and Anxiety F41.9 [place] [address] [place] [address] Feb, Thoracic back pain, unspecified back pain laterality, unspecified chronicity M54.6 and Anxiety F41.9 [facility] [address] [place] [address] Nov, [facility] [id number] [place] [address] Oct, [facility] [id number] [place] [address] Oct, Thoracic back pain, unspecified back pain laterality, unspecified chronicity M54.6 [facility] [id number] [place] [address] Oct, HTN (hypertension) I10 ; Constipation K59.00 ; Hyperlipidemia E78.5 ; Thoracic back pain, unspecified back pain laterality, unspecified chronicity M54.6 ; Chronic pain G89.29 ; Anxiety F41.9 ; Chronic kidney failure N18.9 ; Environmental allergies Z91.09 ; Vitamin D deficiency E55.9 and Primary insomnia F51.01 [facility] [id number] [place] [address] Sep, Anxiety F41.9 [facility] [id number] [place] [address] Sep, [facility] [id number] [place] [address] August, Anxiety F41.9 [facility] [id number] [place] [address] August, [facility] [id number] [place] [address] Jul, Anxiety F41.9 [facility] [id number] [place] [address] Jul, [facility] [id number] [place] [address] Jun, Anxiety F41.9 [facility] [id number] [place] [address] Jun, [facility] [address] [address] May, [facility] [id number] [address] May, [facility] [address] [address] May, [facility] [id number] [place] [address] Apr, [facility] [address] [place] [address] Apr, [facility] [id number] [place] [address] Apr, Anxiety F41.9 [facility] [id number] [place] [address] Apr, Anxiety F41.9 [facility] [id number] [address] Apr, [facility] [id number] [place] [address] Mar, HTN (hypertension) I10 ; Tremor R25.1 ; Hypercholesterolemia E78.0 ; Constipation K59.00 ; Chronic pain G89.29 ; Hyperlipidemia E78.5 ; Insomnia G47.00 ; Anxiety F41.9 and Thoracic back pain, unspecified back pain laterality, unspecified chronicity M54.6 [facility] [address] [address] Mar, Tremor R25.1 ; HTN (hypertension) I10 ; Hypercholesterolemia E78.0 ; Constipation K59.00 ; Chronic pain G89.29 ; Hyperlipidemia E78.5 ; Insomnia G47.00 ; Anxiety F41.9 and Thoracic back pain, unspecified back pain laterality, unspecified chronicity M54.6 [facility] [address] [address] Mar, [facility] [address] [facility] [id number] [place] [address] Mar, [facility] [address] [facility] [id number] [place] [address] Feb, [facility] [address] [facility] [id number] [place] [address] Jan, [facility] [address] [facility] [id number] [place] [address], [place] [address] Jan, [facility] [address] [facility] [id number] [place] [address] Dec, [facility] [address] [facility] [id number] [place] [address] Nov, [facility] [address] [place] [address] Nov, [facility] [address] [place] [address] Oct, Anxiety F41.9 [facility] [address] [facility] [id number], [place] [address] Oct, Chronic pain G89.29 [facility] [address] [address] 24 Sep, 2015 [facility] [address] [facility] [id number], [place] [address] Sep, [facility] [address] [facility] [id number], [place] [address] Sep, [facility] [address] [facility] [id number], [place] [address] Sep, [facility] [address] [facility] [id number], [place] [address] 16 Sep, 2015 Chronic pain syndrome G89.4 [facility] [address] [facility] [id number], [place] [address] Sep, HTN (hypertension) I10 ; Chronic pain G89.29 ; Hypercholesterolemia E78.0 ; Chronic kidney failure N18.9 ; Constipation, unspecified constipation type K59.00 ; Anxiety F41.9 and Thoracic back pain, unspecified back pain laterality, unspecified chronicity M54.6 [facility] [id number] [place] [address] August, Chronic pain syndrome G89.4 [facility] [address] [address] August, Chronic pain syndrome G89.4 [facility] [address] [address] Jul, Anxiety disorder, unspecified F41.9 and Chronic pain syndrome G89.4 [facility] [address] [address] Jul, Insomnia, unspecified G47.00 and Chronic pain syndrome G89.4 [facility] [id number] [place] [address] Jul, Allergic rhinitis J30.9 [facility] [address] [address] Jul, Constipation, unspecified K59.00 [facility] [id number] [place] [address] Jul, [facility] [id number] [place] [address] Jun, [facility] [id number] [place] [address] Jun, [facility] [address] [address] Jun, [facility] [id number] [place] [address] Jun, [facility] [address] [address] Jun, [facility] [id number] [place] [address] Jun, [facility] [id number] [place] [address] May, [facility] [id number] [place] [address] May, [facility] [id number] [place] [address] May, Anxiety F41.9 ; Insomnia G47.00 ; Hyperlipidemia E78.5 ; Chronic pain G89.29 ; HTN (hypertension) I10 ; Environmental allergies V15.09 and Constipation 564.00 [facility] [id number] [place] [address] Apr, [facility] [id number] [place] [address] Apr, [facility] [id number] [place] [address] Apr, [facility] [id number] [place] [address] Mar, [facility] [id number] [place] [address] Mar, [facility] [id number] [place] [address] Mar, [facility] [id number] [place] [address] Feb, [facility] [id number] [place] [address] Feb, [facility] [id number] [place] [address] Feb, [facility] [id number] [place] [address] Jan, HTN (hypertension) I10 ; Constipation K59.00 ; Chronic pain G89.29 ; Hyperlipidemia E78.5 ; Hypercholesterolemia E78.0 ; Insomnia G47.00 and Anxiety F41.9 [place] [id number] [place] [address] Jan, [address] [address] Dec, [place] [address] [address] Nov, [address] [address] Oct, Chronic kidney disease, unspecified 585.9 ; Chronic pain syndrome 338.4 ; Hyperlipidemia 272.4 and Essential hypertension 401.[address] [address] Oct, Chronic kidney disease 585.9 [place] [id number] [place] [address] Oct, [address] [address] Oct, Chronic kidney disease, unspecified 585.9 ; Hypercalcemia 275.42 ; Hyperlipidemia 272.4 ; Essential hypertension 401.9 ; Chronic pain syndrome 338.4 ; Insomnia 780.52 ; Constipation 564.00 ; Environmental allergies V15.09 and Anxiety 300.00 [place] [id number] [place] [address] Oct, Chronic kidney disease 585.[address] [address] Oct, [address] [address] Oct, Chronic kidney disease 585.9 and Hyperlipidemia 272.[address] [address] 10 Oct, 2014 [facility] [address] [id number] [place] [address] 10 Oct, 2014 [facility] [address] [id number] [place] [address] 18 Sep, 2014 [facility] [address] [facility] [id number] [place] [address] 15 Sep, 2014 [facility] [address] [id number] [place] [address] Sep, Chronic kidney disease 585.9 and Hyperlipidemia 272.4 [facility] [address] [id number] [place] [address] Sep, [facility] [address] [facility] [id number] [place] [address] August, [facility] [address] [facility] [id number] [place] [address] August, [facility] [address] [facility] [id number] [place] [address] 14 Jul, 2014 [facility] [address] [id number] [place] [address] Jul, [facility] [address] [facility] [id number] [place] [address] Jun, [facility] [address] [id number] [place] [address] Jun, [facility] [place] [facility] [address] [id number] [place] [address] 16 Jun, 2014 [facility] [place] [facility] [address] [id number] [place] [address] 16 Jun, 2014 [facility] [place] [facility] [address] [facility] [id number] [place] [address] Jun, [facility] [place] [facility] [address] [facility] [id number] [place] [address] Jun, [facility] [place] [facility] [address] [id number] [place] [address] Jun, [facility] [place] [facility] [address] [id number] [place] [address] Jun, [facility] [place] [facility] [address] [id number] [place] [address] May, [facility] [place] [facility] [address] [id number] [place] [address] May, [facility] [place] [facility] [address] [id number] [place] [address] May, [facility] [place] [facility] [address] [id number] [place] [address] May, [facility] [place] [facility] [address] [id number] [place] [address] Apr, [facility] [place] [facility] [address] [id number] [place] [address] Apr, [facility] [place] [facility] [address] [id number] [place] [address] Apr, [facility] [place] [facility] [address] [id number] [place] [address] Apr, [facility] [place] [facility] [address] [id number] [place] [address] Apr, [facility] [place] [facility] [address] [id number], [place] [address] Apr, [facility] [place] [facility] [address] [id number] [place] [address] Apr, [facility] [place] [facility] [address] [id number] [place] [address] Apr, [facility] [place] [facility] [address] [id number] [place] [address] Apr, [facility] [place] [facility] [address] [id number] [place] [address] Apr, [facility] [place] [facility] [address] [id number] [place] [address] Apr, [facility] [place] [facility] [address] [id number] [place] [address] Mar, [facility] [place] [facility] [address] [id number] [place] [address] Mar, [facility] [place] [facility] [address] [id number] [place] [address] Feb, [facility] [place] [facility] [address] [id number] [place] [address] Feb, [facility] [place] [facility] [address] [id number] [place] [address] Feb, [facility] [place] [facility] [address] [id number] [place] [address] Feb, [facility] [place] [facility] [address] [id number] [place] [address] Feb, [facility] [place] [facility] [address] [id number] [place] [address] Feb, [facility] [place] [facility] [address] [facility] [id number] [place] [address] Feb, [facility] [place] [facility] [address] [id number] [place] [address] Feb, [facility] [place] [facility] [address] [id number], [place] [address] Feb, [facility] [place] [facility] [address] [id number] [place] [address] Feb, [facility] [place] [facility] [address] [id number] [place] [address] Jan, [facility] [place] [facility] [address] [id number] [place] [address] Jan, [facility] [place] [facility] [address] [id number] [place] [address] Jan, [facility] [place] [facility] [address] [id number] [place] [address] Jan, [facility] [place] [facility] [address] [id number] [place] [address] Jan, [facility] [place] [facility] [address] [id number] [place] [address] 24 Jan, 2014 [facility] [place] [facility] [address] [id number] [place] [address] Jan, [facility] [place] [facility] [address] [id number] [place] [address] 17 Jan, 2014 [facility] [place] [facility] [address] [id number] [place] [address] 16 Jan, 2014 [facility] [place] [facility] [address] [id number] [place] [address] Jan, [facility] [place] [facility] [address] [id number] [place] [address] 06 Jan, 2014 [facility] [place] [facility] [address] [id number] [place] [address] 26 Dec, 2013 [facility] [place] [facility] [address] [id number] [place] [address] 26 Dec, 2013 [facility] [place] [facility] [address] [id number] [place] [address] 19 Dec, 2013 [facility] [place] [facility] [address] [id number] [place] [address] 19 Dec, 2013 [facility] [place] [facility] [address] [id number] [place] [address] 18 Dec, 2013 [facility] [place] [facility] [address] [id number] [place] [address] 18 Dec, 2013 [facility] [place] [facility] [address] [id number] [place] [address] Dec, [facility] [place] [facility] [address] [id number] [place] [address] Dec, [facility] [place] [facility] [address] [id number] [place] [address] Nov, [facility] [place] [facility] [address] [id number] [place] [address] Nov, [facility] [place] [facility] [address] [id number] [place] [address] Nov, [facility] [place] [facility] [address] [id number] [place] [address] Nov, [facility] [place] [facility] [address] [id number] [place] [address] Nov, [facility] [place] [facility] [address] [id number] [place] [address] Nov, [facility] [place] [facility] [address] [id number] [place] [address] Nov, [facility] [place] [facility] [address] [id number] [place] [address] Nov, [facility] [place] [facility] [address] [id number] [place] [address] Oct, [facility] [place] [facility] [address] [id number] [place] [address] Oct, [facility] [place] [facility] [address] [id number] [place] [address] Oct, [facility] [place] [facility] [address] [id number] [place] [address] Oct, [facility] [place] [facility] [address] [id number] [place] [address] Sep, [facility] [place] [facility] [address] [id number] [place] [address] Sep, [facility] [place] [facility] [address] [id number] [place] [address] Sep, [facility] [address] [id number] [place] [address] Sep, [facility] [address] [id number] [place] [address] Sep, [facility] [address] [id number] [place] [address] Sep, [facility] [place] [facility] [address] [id number] [place] [address] Sep, [facility] [address] [id number] [place] [address] Sep, [facility] [address] [id number] [place] [address] August, [facility] [address] [id number] [place] [address] August, [facility] [address] [id number] [place] [address] August, [facility] [address] [id number] [place] [address] August, [facility] [address] [id number] [place] [address] August, [facility] [place] [facility] [address] [id number] [place] [address] August, [facility] [place] [facility] [address] [id number] [place] [address] August, [facility] [place] [facility] [address] [id number] [place] [address] August, [facility] [place] [facility] [address] [id number] [place] [address] August, [facility] [place] [facility] [address] [id number] [place] [address] August, [facility] [place] [facility] [address] [id number] [place] [address] Jul, [facility] [place] [facility] [address] [id number] [place] [address] Jul, [facility] [place] [facility] [address] [id number] [place] [address] Jul, [facility] [place] [facility] [address] [id number] [place] [address] Jul, [facility] [place] [facility] [address] [id number] [place] [address] Jul, [facility] [place] [facility] [address] [id number] [place] [address] Jul, [facility] [place] [facility] [address] [id number] [place] [address] Jul, [facility] [place] [facility] [address] [id number] [place] [address] Jul, [facility] [place] [facility] [address] [id number] [place] [address] Jun, [facility] [place] [facility] [address] [id number] [place] [address] Jun, [facility] [place] [facility] [address] [id number] [place] [address] Jun, [facility] [place] [facility] [address] [id number] [place] [address] Jun, [facility] [place] [facility] [address] [id number] [place] [address] Jun, [facility] [place] [facility] [address] [id number] [place] [address] Jun, [facility] [place] [facility] [address] [id number] [place] [address] May, [facility] [place] [facility] [address] [id number] [place] [address] May, [facility] [place] [facility] [address] [id number] [place] [address] May, [facility] [place] [facility] [address] [id number] [place] [address] May, [facility] [place] [facility] [address] [id number] [place] [address] May, [facility] [place] [facility] [address] [id number] [place] [address] May, [facility] [place] [facility] [address] [id number] [place] [address] May, [facility] [place] [facility] [address] [id number] [place] [address] Apr, [facility] [place] [facility] [address] [id number] [place] [address] Apr, [facility] [place] [facility] [address] [id number] [place] [address] Apr, [facility] [place] [facility] [address] [id number] [place] [address] Apr, [facility] [place] [facility] [address] [id number] [place] [address] Apr, [facility] [place] [facility] [address] [id number] [place] [address] Apr, [facility] [place] [facility] [address] [id number] [place] [address] Mar, [facility] [place] [facility] [address] [id number] [place] [address] Mar, [facility] [place] [facility] [address] [id number] [place] [address] Mar, [facility] [place] [facility] [address] [id number] [place] [address] Mar, [facility] [place] [facility] [address] [id number] [place] [address] Mar, [facility] [address] [id number] [place] [address] Mar, [facility] [address] [id number] [place] [address] Mar, [facility] [address] [id number] [place] [address] Mar, [facility] [address] [id number] [place] [address] Mar, [facility] [address] [id number] [place] [address] Mar, [facility] [address] [id number] [place] [address] Feb, [facility] [address] [id number] [place] [address] Feb, [facility] [address] [id number] [place] [address] Feb, [facility] [address] [id number] [place] [address] Feb, [facility] [address] [id number] [place] [address] 14 Feb, 2013 [facility] [place] [facility] [address] [id number], [place] [address] 14 Feb, 2013 [facility] [place] [facility] [address] [id number] [place] [address] Feb, [facility] [place] [facility] [address] [id number] [place] [address] Feb, [facility] [place] [facility] [address] [id number] [place] [address] 08 Feb, 2013 [facility] [place] [facility] [address] [id number], [place] [address] Feb, [facility] [place] [facility] [address] [id number] [place] [address] Jan, [facility] [place] [facility] [address] [id number] [place] [address] Jan, [facility] [place] [facility] [address] [id number] [place] [address] Jan, [facility] [place] [facility] [address] [id number] [place] [address] Jan, [facility] [place] [facility] [address] [id number] [place] [address] Jan, [facility] [place] [facility] [address] [id number] [place] [address] Jan, [facility] [place] [facility] [address] [id number] [place] [address] Jan, [facility] [place] [facility] [address] [id number] [place] [address] Jan, [facility] [place] [facility] [address] [id number] [place] [address] Jan, [facility] [place] [facility] [address] [id number] [place] [address] Dec, [facility] [place] [facility] [address] [id number], [place] [address] Dec, [facility] [place] [facility] [address] [id number], [place] [address] 21 Dec, 2012 [facility] [place] [facility] [address] [id number] [place] [address] 13 Dec, 2012 [facility] [place] [facility] [address] [id number] [place] [address] Nov, [facility] [place] [facility] [address] [id number] [place] [address] Nov, [facility] [place] [facility] [address] [id number] [place] [address] Nov, [facility] [address] [id number] [place] [address] Nov, [facility] [address] [id number] [place] [address] Nov, [facility] [address] [id number] [place] [address] Nov, [facility] [address] [id number] [place] [address] Oct, [facility] [address] [id number] [place] [address] Oct, [facility] [address] [id number] [place] [address] Oct, [facility] [address] [id number] [place] [address] Oct, [facility] [address] [id number] [place] [address] Sep, [facility] [address] [id number] [place] [address] Sep, [facility] [address] [id number] [place] [address] Sep, [facility] [address] [id number] [place] [address] Sep, [facility] [address] [id number] [place] [address] Sep, [facility] [place] [facility] [address] [id number] [place] [address] August, [facility] [address] [id number] [place] [address] August, [facility] [address] [id number] [place] [address] Jul, [facility] [address] [id number] [place] [address] Jul, [facility] [place] [facility] [address] [id number] [place] [address] 15 Jul, 2012 [facility] [place] [facility] [address] [id number] [place] [address] Jul, [facility] [place] [facility] [address] [id number] [place] [address] Jul, [facility] [address] [id number] [place] [address] Jun, [facility] [place] [facility] [address] [id number] [place] [address] Jun, [facility] [place] [facility] [address] [id number] [place] [address] Jun, [facility] [place] [facility] [address] [id number] [place] [address] Jun, [facility] [place] [facility] [address] [id number] [place] [address] Jun, [facility] [place] [facility] [address] [id number] [place] [address] 28 May, 2012 [facility] [place] [facility] [address] [id number] [place] [address] May, [facility] [place] [facility] [address] [id number], [place] [address] May, [facility] [place] [facility] [address] [id number] [place] [address] May, [facility] [place] [facility] [address] [id number] [place] [address] 20 May, 2012 [facility] [place] [facility] [address] [id number] [place] [address] 14 May, 2012 [facility] [place] [facility] [address] [id number] [place] [address] 13 May, 2012 [facility] [address] [id number] [place] [address] 08 May, 2012 [facility] [address] [id number] [place] [address] May, [facility] [address] [id number] [place] [address] Apr, [facility] [address] [id number] [place] [address] Apr, [facility] [address] [id number] [place] [address] Apr, [facility] [address] [id number] [place] [address] Apr, [facility] [address] [id number] [place] [address] Apr, [facility] [address] [id number] [place] [address] Mar, [facility] [address] [id number] [place] [address] Mar, [facility] [address] [id number] [place] [address] Mar, [facility] [address] [id number] [place] [address] Mar, [facility] [address] [id number] [place] [address] Mar, [facility] [address] [id number] [place] [address] Mar, [facility] [address] [id number] [place] [address] Mar, [facility] [address] [id number] [place] [address] Mar, [facility] [place] [facility] [address] [id number] [place] [address] Mar, [facility] [place] [facility] [address] [id number] [place] [address] Mar, [facility] [place] [facility] [address] [id number] [place] [address] 30 Feb, 2012 [facility] [place] [facility] [address] [id number] [place] [address] 30 Feb, 2012 [facility] [place] [facility] [address] [id number] [place] [address] Feb, [facility] [place] [facility] [address] [id number] [place] [address] Feb, [facility] [place] [facility] [address] [id number] [place] [address] Feb, [facility] [place] [facility] [address] [id number] [place] [address] Feb, [facility] [place] [facility] [address] [id number] [place] [address] Feb, [facility] [place] [facility] [address] [id number] [place] [address] Feb, [facility] [place] [facility] [address] [id number] [place] [address] 16 Feb, 2012 [facility] [place] [facility] [address] [id number], [place] [address] 16 Feb, 2012 [facility] [place] [facility] [address] [id number] [place] [address] 13 Feb, 2012 [facility] [place] [facility] [address] [id number] [place] [address] 13 Feb, 2012 [facility] [place] [facility] [address] [id number] [place] [address] 12 Feb, 2012 [facility] [place] [facility] [address] [id number] [place] [address] Feb, [facility] [place] [facility] [address] [id number] [place] [address] Feb, [facility] [place] [facility] [address] [id number] [place] [address] Feb, [facility] [place] [facility] [address] [id number] [place] [address] Feb, [facility] [place] [facility] [address] [id number] [place] [address] Feb, [facility] [place] [facility] [address] [id number] [place] [address] Jan, [facility] [place] [facility] [address] [id number] [place] [address] Jan, [facility] [place] [facility] [address] [id number] [place] [address] Jan, [facility] [place] [facility] [address] [id number] [place] [address] Jan, [facility] [place] [facility] [address] [id number] [place] [address] Jan, [facility] [place] [facility] [address] [facility] [id number] [place] [address] Jan, [facility] [place] [facility] [address] [facility] [id number] [place] [address] Jan, [facility] [place] [facility] [address] [id number], [place] [address] Jan, [facility] [place] [facility] [address] [id number] [place] [address] Jan, [facility] [place] [facility] [address] [facility] [id number], [place] [address] Jan, [facility] [place] [facility] [address] [facility] [id number], [place] [address] 24 Dec, 2011 [facility] [place] [facility] [address] [id number] [place] [address] Dec, [facility] [place] [facility] [address] [id number] [place] [address] Dec, [facility] [place] [facility] [address] [id number] [place] [address] Dec, [facility] [place] [facility] [address] [id number] [place] [address] Nov, [facility] [place] [facility] [address] [id number] [place] [address] Nov, [facility] [place] [facility] [address] [id number] [place] [address] Nov, [facility] [place] [facility] [address] [id number] [place] [address] Nov, [facility] [place] [facility] [address] [id number] [place] [address] Nov, [facility] [place] [facility] [address] [id number] [place] [address] Nov, [facility] [place] [facility] [address] [id number] [place] [address] Oct, [facility] [place] [facility] [address] [id number] [place] [address] Oct, [facility] [place] [facility] [address] [id number] [place] [address] Oct, [facility] [place] [facility] [address] [id number] [place] [address] Oct, [facility] [place] [facility] [address] [id number] [place] [address] Oct, [facility] [place] [facility] [address] [id number] [place] [address] Sep, [facility] [place] [facility] [address] [id number] [place] [address] Sep, [facility] [place] [facility] [address] [id number] [place] [address] Sep, [facility] [place] [facility] [address] [id number] [place] [address] Sep, [facility] [place] [facility] [address] [id number] [place] [address] Sep, [facility] [place] [facility] [address] [id number] [place] [address] August, [facility] [place] [facility] [address] [id number] [place] [address] August, [facility] [place] [facility] [address] [id number] [place] [address] August, [facility] [place] [facility] [address] [id number] [place] [address] August, [facility] [place] [facility] [address] [id number] [place] [address] Jul, [facility] [place] [facility] [address] [id number] [place] [address] 24 Jul, 2011 [facility] [place] [facility] [address] [id number] [place] [address] Jul, [facility] [place] [facility] [address] [id number] [place] [address] 18 Jul, 2011 [facility] [place] [facility] [address] [id number], [place] [address] 18 Jul, 2011 [facility] [place] [facility] [address] [id number] [place] [address] 12 Jul, 2011 [facility] [place] [facility] [address] [id number] [place] [address] 11 Jul, 2011 [facility] [place] [facility] [address] [id number] [place] [address] 10 Jul, 2011 [facility] [place] [facility] [address] [id number] [place] [address] 09 Jul, 2011 [facility] [address] [id number] [place] [address] Jul, [facility] [address] [id number] [place] [address] 05 Jul, 2011 [facility] [address] [id number] [place] [address] Jul, [facility] [address] [id number] [place] [address] Jul, [facility] [address] [id number] [place] [address] Jul, [facility] [address] [id number] [place] [address] Jun, [facility] [address] [id number] [place] [address] Jun, [facility] [address] [id number] [place] [address] Jun, [facility] [address] [id number] [place] [address] 16 Jun, 2011 [facility] [address] [id number] [place] [address] May, [facility] [address] [id number] [place] [address] 16 May, 2011 [facility] [address] [id number] [place] [address] May, [facility] [place] [facility] [address] [id number] [place] [address] Apr, [facility] [address] [id number] [place] [address] 18 Apr, 2011 [facility] [address] [id number] [place] [address] Apr, [facility] [place] [facility] [address] [id number] [place] [address] Apr, [facility] [place] [facility] [address] [id number] [place] [address] Apr, [facility] [place] [facility] [address] [id number] [place] [address] Mar, [facility] [place] [facility] [address] [id number] [place] [address] Mar, [facility] [place] [facility] [address] [id number] [place] [address] Mar, [facility] [place] [facility] [address] [id number] [place] [address] Mar, [facility] [place] [facility] [address] [id number] [place] [address] Mar, [facility] [place] [facility] [address] [id number] [place] [address] Mar, [facility] [place] [facility] [address] [id number] [place] [address] Mar, [facility] [place] [facility] [address] [id number] [place] [address] 29 Feb, 2011 [facility] [place] [facility] [address] [id number] [place] [address] Feb, [facility] [place] [facility] [address] [id number] [place] [address] Feb, [facility] [place] [facility] [address] [id number] [place] [address] Feb, [facility] [place] [facility] [address] [id number] [place] [address] 16 Feb, 2011 [facility] [place] [facility] [address] [id number] [place] [address] 14 Feb, 2011 [facility] [place] [facility] [address] [id number] [place] [address] 10 Feb, 2011 [facility] [place] [facility] [address] [id number] [place] [address] 31 Jan, 2011 [facility] [place] [facility] [address] [id number] [place] [address] 31 Jan, 2011 [facility] [place] [facility] [address] [id number] [place] [address] 31 Jan, 2011 [facility] [place] [facility] [address] [id number] [place] [address] 18 Jan, 2011 [facility] [place] [facility] [address] [id number] [place] [address] 17 Jan, 2011 [facility] [place] [facility] [address] [id number] [place] [address] 17 Jan, 2011 [facility] [address] [id number] [place] [address] Jun, [facility] [place] [facility] [address] [id number] [place] [address] 30 Mar, 2010 [facility] [place] [facility] [address] [id number] [place] [address] 20 Mar, 2010 [facility] [place] [facility] [address] [id number] [place] [address] 14 Mar, 2010 [facility] [place] [facility] [address] [id number] [place] [address] 14 Mar, 2010 [facility] [place] [facility] [address] [id number] [place] [address] 13 Mar, 2010 [facility] [place] [facility] [address] [id number] [place] [address] 07 Mar, 2010 [facility] [place] [facility] [address] [id number] [place] [address] 02 Mar, 2010 [facility] [place] [facility] [address] [id number] [place] [address] Mar, [facility] [place] [facility] [address] [id number] [place] [address] 30 Feb, 2010 [facility] [place] [facility] [address] [id number] [place] [address] 29 Feb, 2010 [facility] [place] [facility] [address] [id number] [place] [address] 17 Feb, 2010 [facility] [place] [facility] [address] [id number] [place] [address] 17 Feb, 2010 [facility] [place] [facility] [address] [id number] [place] [address] 16 Feb, 2010 [facility] [place] [facility] [address] [id number] [place] [address] 08 Feb, 2010 [facility] [place] [facility] [address] [id number] [place] [address] Feb, [facility] [place] [facility] [address] [id number] [place] [address] Feb, [facility] [place] [facility] [address] [id number] [place] [address] Jan, [facility] [place] [facility] [address] [id number] [place] [address] Jan, [facility] [place] [facility] [address] [id number] [place] [address] Jan, [facility] [place] [facility] [address] [id number] [place] [address] Jan, [facility] [place] [facility] [address] [id number] [place] [address] Mar, [facility] [place] [facility] [address] [id number] [place] [address] Mar, [facility] [place] [facility] [address] [id number] [place] [address] Mar, [facility] [place] [facility] [address] [id number] [place] [address] Mar, [facility] [address] [facility] [id number] [address] Mar, [facility] [address] [id number] [address] Mar, [facility] [address] [id number] [address] Feb, [facility] [id number] [address] Feb, [facility] [address] [id number] [address] Jan, [facility] [id number] [address] Sep, [facility] [address] [id number], [place] [address] May, IMMUNIZATIONS No Known Immunizations SOCIAL HISTORY Never Assessed REASON FOR VISIT Residential PLAN OF CARE Activity Details Follow Up prn Reason: VITAL SIGNS MEDICATIONS Medication Instructions Dosage Frequency Start Date End Date Duration Status Klonopin 0.5 MG Orally twice a day 1 tablet 12h Nov, 28 days Active RESULTS No Results PROCEDURES Procedure Date Ordered Result Body Site Minor complication (15 mins) Dec 23, 2017 INSTRUCTIONS MEDICATIONS ADMINISTERED No Known Medications MEDICAL (GENERAL) HISTORY Type Description Date Medical History Hypertension Medical History Hyperlipidemia Medical History chronic back pain since age 26 Medical History Anxiety Medical History Hx of Spontaneous Pneumothorax Surgical History right knee arthroscopy Surgical History colon resection Surgical History tonsillectomy Surgical History Left ear surgery Hospitalization History [facility]- Spontaneous Pneumothorax Hospitalization History [facility]- Colon resection Hospitalization History via [facility] - diarrhea/ couldnt urinate nov 2017
--- OUTSIDE RECORDS SUMMARY | 2018-10-15 01:31 | XMS REPORT ---
Author Author NANCY MARIE [facility] Address [address] [place] [address] Care Team Providers Care Dry Roller Name Role Phone NANCY MARIE Unavailable PROBLEMS Type Condition ICD9-CM Code CHL96-RX Code Onset Dates Condition Status SNOMED Code Problem Anxiety F41.9 Active 27408556 Problem Chronic pain G89.29 Active 24150536 Problem Constipation K59.00 Active 89304551 Problem Insomnia G47.00 Active 955478560 Problem HTN (hypertension) I10 Active 43698651 Problem Chronic kidney disease, stage III (moderate) N18.3 Active 644814755 Problem Primary insomnia F51.01 Active 7930698 Problem Thoracic back pain, unspecified back pain laterality, unspecified chronicity M54.6 Active 500426568 Problem Hyperlipidemia E78.5 Active 65779606 Problem Environmental allergies Z91.09 Active 436042825 Problem Vitamin D deficiency E55.9 Active 61072849 ALLERGIES No Information ENCOUNTERS Encounter Location Date Diagnosis [place] [id number] [place] [phone] 27 Dec, 2017 [place] [id number] [place] [phone] Dec, Diarrhea of presumed infectious origin R19.7 [facility] [id number] [place] [address] Dec, Diarrhea of presumed infectious origin R19.7 [place] [id number] [place] [address] 18 Dec, 2017 Thoracic back pain, unspecified back pain laterality, unspecified chronicity M54.6 [facility] [id number] [place] [phone] 17 Dec, 2017 [place] [address], [place] [address] 17 Dec, 2017 Anxiety F41.9 and Thoracic back pain, unspecified back pain laterality, unspecified chronicity M54.6 [place] [address], [place] [address] Dec, Diarrhea of presumed infectious origin R19.7 [place] [id number] [place] [phone] Dec, [place] [id number] [place] [address] Dec, Anxiety F41.9 and Thoracic back pain, unspecified back pain laterality, unspecified chronicity M54.6 [place] [id number] [place] [address] Dec, Anxiety F41.9 and Thoracic back pain, unspecified back pain laterality, unspecified chronicity M54.6 [facility] [address] [place] [id number] Dec, Diarrhea of presumed infectious origin R19.7 ; Anxiety F41.9 ; Thoracic back pain, unspecified back pain laterality, unspecified chronicity M54.6 and HTN (hypertension) I10 [place] [id number] [place] [address] Dec, Anxiety F41.9 [facility] [address] [place] [id number] Dec, Anxiety F41.9 ; Diarrhea of presumed infectious origin R19.7 ; Generalized abdominal pain R10.84 and Localized edema R60.0 [place] [id number] [place] [address] Nov, [facility] [address] [place] [id number] Nov, Anxiety F41.9 ; Urinary retention R33.9 ; Diarrhea of presumed infectious origin R19.7 ; Weakness R53.1 ; Acute kidney failure, unspecified N17.9 ; Chronic kidney disease, stage III (moderate) N18.3 and Thoracic back pain, unspecified back pain laterality, unspecified chronicity M54.6 [place] [id number] [place] [address] Oct, Thoracic back pain, unspecified back pain laterality, unspecified chronicity M54.6 and Anxiety F41.9 [place] [id number] [place] [address] Sep, Thoracic back pain, unspecified back pain laterality, unspecified chronicity M54.6 and Anxiety F41.9 [place] [id number] [place] [address] Sep, Thoracic back pain, unspecified back pain laterality, unspecified chronicity M54.6 ; Anxiety F41.9 and Encounter for medication monitoring Z51.81 [place] [id number] [place] [address] August, [place] [address] [address] August, Thoracic back pain, unspecified back pain laterality, unspecified chronicity M54.6 and Anxiety F41.9 [place] [id number] [place] [address] August, Hyperlipidemia E78.5 and HTN (hypertension) I10 [place] [id number] [place] [address] August, [place] [id number] [place] [address] August, Medicare welcome exam Z00.00 ; Chronic kidney failure N18.9 ; Anxiety F41.9 ; Chronic pain G89.29 ; Insomnia G47.00 ; Hyperlipidemia E78.5 ; HTN (hypertension) I10 and Thoracic back pain, unspecified back pain laterality, unspecified chronicity M54.6 [place] [id number] [place] [address] Jul, [place] [id number] [place] [address] Jul, [place] [address] [address] Jul, [facility] [id number] [place] [address] Jul, Anxiety F41.9 [place] [address] [address] Jul, Thoracic back pain, unspecified back pain laterality, unspecified chronicity M54.6 and Anxiety F41.9 [place] [address] [address] Jun, Thoracic back pain, unspecified back pain laterality, unspecified chronicity M54.6 and Anxiety F41.9 [place] [address] [address] May, Thoracic back pain, unspecified back pain laterality, unspecified chronicity M54.6 and Anxiety F41.9 [place] [address] [address] Apr, Thoracic back pain, unspecified back pain laterality, unspecified chronicity M54.6 and Anxiety F41.9 [place] [id number] [place] [address] Mar, [place] [id number] [place] [address] Mar, Thoracic back pain, unspecified back pain laterality, unspecified chronicity M54.6 and Anxiety F41.9 [place] [address] [address] Mar, Thoracic back pain, unspecified back pain laterality, unspecified chronicity M54.6 ; HTN (hypertension) I10 ; Hyperlipidemia E78.5 and Anxiety F41.9 [place] [id number] [place] [address] Feb, Thoracic back pain, unspecified back pain laterality, unspecified chronicity M54.6 and Anxiety F41.9 [facility] [id number] [place] [address] Nov, [facility] [id number] [place] [address] Oct, [facility] [address] [address] Oct, Thoracic back pain, unspecified back pain laterality, unspecified chronicity M54.6 [place] [address] [address] Oct, HTN (hypertension) I10 ; Constipation K59.00 ; Hyperlipidemia E78.5 ; Thoracic back pain, unspecified back pain laterality, unspecified chronicity M54.6 ; Chronic pain G89.29 ; Anxiety F41.9 ; Chronic kidney failure N18.9 ; Environmental allergies Z91.09 ; Vitamin D deficiency E55.9 and Primary insomnia F51.01 [place] [id number] [place] [address] Sep, Anxiety F41.9 [place] [id number] [place] [address] Sep, [place] [id number] [place] [address] August, Anxiety F41.9 [facility] [id number] [place] [address] August, [facility] [id number] [place] [address] Jul, Anxiety F41.9 [facility] [id number] [place] [address] Jul, [facility] [id number] [place] [address] Jun, Anxiety F41.9 [facility] [address], [place] [address] Jun, [facility] [address], [place] [address] May, [facility] [address], [place] [address] May, [facility] [id number] [place] [address] May, [facility] [id number] [place] [address] Apr, [facility] [id number] [place] [address] Apr, [facility] [id number] [place] [address] Apr, Anxiety F41.9 [facility] [address], [place] [address] Apr, Anxiety F41.9 [facility] [id number] [place] [address] Apr, [facility] [address], [place] [address] Mar, HTN (hypertension) I10 ; Tremor R25.1 ; Hypercholesterolemia E78.0 ; Constipation K59.00 ; Chronic pain G89.29 ; Hyperlipidemia E78.5 ; Insomnia G47.00 ; Anxiety F41.9 and Thoracic back pain, unspecified back pain laterality, unspecified chronicity M54.6 [facility] [id number], [place] [address] Mar, Tremor R25.1 ; HTN (hypertension) I10 ; Hypercholesterolemia E78.0 ; Constipation K59.00 ; Chronic pain G89.29 ; Hyperlipidemia E78.5 ; Insomnia G47.00 ; Anxiety F41.9 and Thoracic back pain, unspecified back pain laterality, unspecified chronicity M54.6 [facility] [address] [facility] [id number] [place] [address] Mar, [facility] [address] [facility] [id number] [place] [address] Mar, [facility] [address] [facility] [id number] [place] [address] Feb, [facility] [address] [facility] [id number] [place] [address], [place] [address] Jan, [facility] [address] [facility] [id number] [place] [address] Jan, [facility] [address] [facility] [id number] [place] [address], [place] [address] 15 Dec, 2015 [facility] [id number] [place] [address] Nov, [facility] [id number] [place] [address] Nov, [facility] [id number] [place] [address] Oct, Anxiety F41.9 [facility] [id number], [place] [address] Oct, Chronic pain G89.29 [facility] [address], [place] [address] Sep, [facility] [id number], [place] [address] Sep, [facility] [address] [facility] [id number], [place] [address] Sep, [facility] [address] [facility] [id number], [place] [address] Sep, [facility] [id number], [place] [address] 16 Sep, 2015 Chronic pain syndrome G89.4 [facility] [id number] [place] [address] Sep, HTN (hypertension) I10 ; Chronic pain G89.29 ; Hypercholesterolemia E78.0 ; Chronic kidney failure N18.9 ; Constipation, unspecified constipation type K59.00 ; Anxiety F41.9 and Thoracic back pain, unspecified back pain laterality, unspecified chronicity M54.6 [facility] [address] [address] August, Chronic pain syndrome G89.4 [facility] [address] [address] August, Chronic pain syndrome G89.4 [place] [address] [address] Jul, Anxiety disorder, unspecified F41.9 and Chronic pain syndrome G89.4 [place] [address] [address] Jul, Insomnia, unspecified G47.00 and Chronic pain syndrome G89.4 [place] [address] [address] Jul, Allergic rhinitis J30.9 [facility] [id number] [place] [address] Jul, Constipation, unspecified K59.00 [place] [id number] [place] [address] Jul, [place] [id number] [place] [address] Jun, [facility] [address] [address] Jun, [facility] [id number] [place] [address] Jun, [facility] [address] [address] Jun, [facility] [id number] [place] [address] Jun, [facility] [id number] [place] [address] Jun, [facility] [id number] [place] [address] May, [facility] [id number] [place] [address] May, [facility] [id number] [place] [address] May, Anxiety F41.9 ; Insomnia G47.00 ; Hyperlipidemia E78.5 ; Chronic pain G89.29 ; HTN (hypertension) I10 ; Environmental allergies V15.09 and Constipation 564.00 [facility] [id number] [place] [address] Apr, [facility] [id number] [place] [address] Apr, [facility] [id number] [place] [address] Apr, [facility] [id number] [place] [address] Mar, [facility] [id number] [place] [address] Mar, [facility] [id number] [place] [address] Mar, [facility] [id number] [place] [address] Feb, [facility] [id number] [place] [address] Feb, [facility] [id number] [place] [address] Feb, [facility] [id number] [place] [address] Jan, HTN (hypertension) I10 ; Constipation K59.00 ; Chronic pain G89.29 ; Hyperlipidemia E78.5 ; Hypercholesterolemia E78.0 ; Insomnia G47.00 and Anxiety F41.9 [place] [id number] [place] [address] Jan, [place] [address] [address] Dec, [address] [address] Nov, [place] [address] [address] Oct, Chronic kidney disease, unspecified 585.9 ; Chronic pain syndrome 338.4 ; Hyperlipidemia 272.4 and Essential hypertension 401.9 [place] [id number] [place] [address] Oct, Chronic kidney disease 585.9 [place] [id number] [place] [address] Oct, [place] [id number] [place] [address] Oct, Chronic kidney disease, unspecified 585.9 ; Hypercalcemia 275.42 ; Hyperlipidemia 272.4 ; Essential hypertension 401.9 ; Chronic pain syndrome 338.4 ; Insomnia 780.52 ; Constipation 564.00 ; Environmental allergies V15.09 and Anxiety 300.00 [place] [id number] [place] [address] Oct, Chronic kidney disease 585.9 [facility] [id number] [place] [address] Oct, [place] [id number] [place] [address] Oct, Chronic kidney disease 585.9 and Hyperlipidemia 272.4 [facility] [address] [id number] [place] [address] 10 Oct, 2014 [facility] [address] [id number] [place] [address] 10 Oct, 2014 [facility] [address] [facility] [id number] [place] [address] 18 Sep, 2014 [facility] [address] [id number] [place] [address] 15 Sep, 2014 [facility] [address] [id number] [place] [address] Sep, Chronic kidney disease 585.9 and Hyperlipidemia 272.4 [facility] [address] [id number] [place] [address] Sep, [facility] [address] [facility] [id number] [place] [address] August, [facility] [address] [id number] [place] [address] August, [facility] [address] [facility] [id number] [place] [address] 14 Jul, 2014 [facility] [address] [facility] [id number] [place] [address] Jul, [facility] [address] [facility] [id number] [place] [address] 20 Jun, 2014 [facility] [address] [id number] [place] [address] 20 Jun, 2014 [facility] [address] [id number] [place] [address] 16 Jun, 2014 [facility] [address] [facility] [id number] [place] [address] 16 Jun, 2014 [facility] [address] [facility] [id number] [place] [address] Jun, [facility] [place] [facility] [address] [id number] [place] [address] Jun, [facility] [place] [facility] [address] [id number] [place] [address] Jun, [facility] [place] [facility] [address] [id number] [place] [address] Jun, [facility] [place] [facility] [address] [id number] [place] [address] May, [facility] [place] [facility] [address] [id number] [place] [address] May, [facility] [place] [facility] [address] [id number] [place] [address] May, [facility] [place] [facility] [address] [id number] [place] [address] May, [facility] [place] [facility] [address] [id number] [place] [address] Apr, [facility] [place] [facility] [address] [id number] [place] [address] Apr, [facility] [place] [facility] [address] [id number] [place] [address] Apr, [facility] [place] [facility] [address] [id number] [place] [address] Apr, [facility] [place] [facility] [address] [id number], [place] [address] Apr, [facility] [place] [facility] [address] [id number] [place] [address] Apr, [facility] [place] [facility] [address] [id number] [place] [address] Apr, [facility] [place] [facility] [address] [id number] [place] [address] Apr, [facility] [place] [facility] [address] [id number] [place] [address] 16 Apr, 2014 [facility] [place] [facility] [address] [id number] [place] [address] Apr, [facility] [place] [facility] [address] [id number] [place] [address] Apr, [facility] [place] [facility] [address] [id number] [place] [address] Mar, [facility] [place] [facility] [address] [id number] [place] [address] Mar, [facility] [place] [facility] [address] [id number] [place] [address] Feb, [facility] [place] [facility] [address] [id number] [place] [address] Feb, [facility] [place] [facility] [address] [id number] [place] [address] Feb, [facility] [place] [facility] [address] [id number] [place] [address] Feb, [facility] [place] [facility] [address] [id number] [place] [address] Feb, [facility] [place] [facility] [address] [facility] [id number] [place] [address] Feb, [facility] [place] [facility] [address] [id number] [place] [address] Feb, [facility] [place] [facility] [address] [id number] [place] [address] Feb, [facility] [place] [facility] [address] [id number] [place] [address] Feb, [facility] [place] [facility] [address] [id number] [place] [address] Feb, [facility] [place] [facility] [address] [id number] [place] [address] Jan, [facility] [place] [facility] [address] [id number] [place] [address] Jan, [facility] [place] [facility] [address] [id number] [place] [address] Jan, [facility] [place] [facility] [address] [id number] [place] [address] Jan, [facility] [place] [facility] [address] [id number] [place] [address] Jan, [facility] [place] [facility] [address] [id number] [place] [address] 24 Jan, 2014 [facility] [place] [facility] [address] [id number] [place] [address] Jan, [facility] [place] [facility] [address] [id number] [place] [address] Jan, [facility] [place] [facility] [address] [id number] [place] [address] 16 Jan, 2014 [facility] [place] [facility] [address] [id number] [place] [address] Jan, [facility] [place] [facility] [address] [id number] [place] [address] Jan, [facility] [place] [facility] [address] [id number] [place] [address] 26 Dec, 2013 [facility] [place] [facility] [address] [id number] [place] [address] 26 Dec, 2013 [facility] [place] [facility] [address] [id number] [place] [address] 19 Dec, 2013 [facility] [place] [facility] [address] [id number] [place] [address] 19 Dec, 2013 [facility] [place] [facility] [address] [id number] [place] [address] 18 Sep, 2013 [facility] [place] [facility] [address] [id number] [place] [address] Dec, [facility] [place] [facility] [address] [id number] [place] [address] Dec, [facility] [place] [facility] [address] [id number] [place] [address] Dec, [facility] [place] [facility] [address] [id number] [place] [address] Nov, [facility] [place] [facility] [address] [id number] [place] [address] Nov, [facility] [place] [facility] [address] [id number] [place] [address] Nov, [facility] [place] [facility] [address] [id number] [place] [address] Nov, [facility] [place] [facility] [address] [id number] [place] [address] Nov, [facility] [place] [facility] [address] [id number] [place] [address] Nov, [facility] [place] [facility] [address] [id number] [place] [address] Nov, [facility] [place] [facility] [address] [id number] [place] [address] Nov, [facility] [place] [facility] [address] [id number] [place] [address] Oct, [facility] [place] [facility] [address] [id number] [place] [address] Oct, [facility] [place] [facility] [address] [id number] [place] [address] Oct, [facility] [place] [facility] [address] [id number] [place] [address] Oct, [facility] [place] [facility] [address] [id number] [place] [address] Sep, [facility] [place] [facility] [address] [id number] [place] [address] Sep, [facility] [address] [id number] [place] [address] Sep, [facility] [place] [facility] [address] [id number] [place] [address] Sep, [facility] [place] [facility] [address] [id number] [place] [address] Sep, [facility] [place] [facility] [address] [id number] [place] [address] Sep, [facility] [place] [facility] [address] [id number] [place] [address] Sep, [facility] [place] [facility] [address] [id number] [place] [address] Sep, [facility] [address] [id number] [place] [address] August, [facility] [address] [id number] [place] [address] August, [facility] [place] [facility] [address] [id number] [place] [address] August, [facility] [address] [id number] [place] [address] August, [facility] [place] [facility] [address] [id number] [place] [address] August, [facility] [place] [facility] [address] [id number] [place] [address] August, [facility] [place] [facility] [address] [id number] [place] [address] August, [facility] [place] [facility] [address] [id number] [place] [address] August, [facility] [place] [facility] [address] [id number] [place] [address] August, [facility] [place] [facility] [address] [id number] [place] [address] August, [facility] [place] [facility] [address] [id number] [place] [address] Jul, [facility] [place] [facility] [address] [id number] [place] [address] Jul, [facility] [place] [facility] [address] [id number] [place] [address] Jul, [facility] [place] [facility] [address] [id number] [place] [address] Jul, [facility] [place] [facility] [address] [id number] [place] [address] Jul, [facility] [place] [facility] [address] [id number] [place] [address] Jul, [facility] [place] [facility] [address] [id number] [place] [address] Jul, [facility] [place] [facility] [address] [id number] [place] [address] Jul, [facility] [place] [facility] [address] [id number] [place] [address] Jun, [facility] [place] [facility] [address] [id number] [place] [address] Jun, [facility] [place] [facility] [address] [id number] [place] [address] Jun, [facility] [place] [facility] [address] [id number] [place] [address] Jun, [facility] [place] [facility] [address] [id number] [place] [address] Jun, [facility] [place] [facility] [address] [id number] [place] [address] Jun, [facility] [place] [facility] [address] [id number] [place] [address] May, [facility] [place] [facility] [address] [id number] [place] [address] May, [facility] [place] [facility] [address] [id number] [place] [address] May, [facility] [place] [facility] [address] [id number] [place] [address] May, [facility] [place] [facility] [address] [id number] [place] [address] May, [facility] [place] [facility] [address] [id number] [place] [address] May, [facility] [place] [facility] [address] [id number] [place] [address] May, [facility] [place] [facility] [address] [id number] [place] [address] Apr, [facility] [place] [facility] [address] [id number] [place] [address] Apr, [facility] [place] [facility] [address] [id number] [place] [address] Apr, [facility] [place] [facility] [address] [id number] [place] [address] Apr, [facility] [place] [facility] [address] [id number] [place] [address] Apr, [facility] [place] [facility] [address] [id number] [place] [address] Apr, [facility] [place] [facility] [address] [id number] [place] [address] Mar, [facility] [place] [facility] [address] [id number] [place] [address] Mar, [facility] [place] [facility] [address] [id number] [place] [address] Mar, [facility] [place] [facility] [address] [id number] [place] [address] Mar, [facility] [address] [id number] [place] [address] Mar, [facility] [address] [id number] [place] [address] Mar, [facility] [address] [id number] [place] [address] Mar, [facility] [address] [id number] [place] [address] Mar, [facility] [address] [id number] [place] [address] Mar, [facility] [address] [id number] [place] [address] Mar, [facility] [address] [id number] [place] [address] Feb, [facility] [address] [id number] [place] [address] Feb, [facility] [address] [id number] [place] [address] Feb, [facility] [address] [id number] [place] [address] Feb, [facility] [place] [facility] [address] [id number], [place] [address] Feb, [facility] [place] [facility] [address] [id number] [place] [address] 14 Feb, 2013 [facility] [place] [facility] [address] [id number] [place] [address] Feb, [facility] [place] [facility] [address] [id number] [place] [address] Feb, [facility] [place] [facility] [address] [id number], [place] [address] Feb, [facility] [place] [facility] [address] [id number] [place] [address] Feb, [facility] [place] [facility] [address] [id number] [place] [address] Jan, [facility] [place] [facility] [address] [id number] [place] [address] Jan, [facility] [place] [facility] [address] [id number] [place] [address] Jan, [facility] [place] [facility] [address] [id number] [place] [address] Jan, [facility] [place] [facility] [address] [id number] [place] [address] Jan, [facility] [place] [facility] [address] [id number] [place] [address] Jan, [facility] [place] [facility] [address] [id number] [place] [address] Jan, [facility] [place] [facility] [address] [id number] [place] [address] Jan, [facility] [place] [facility] [address] [id number] [place] [address] Jan, [facility] [place] [facility] [address] [id number], [place] [address] 25 Dec, 2012 [facility] [place] [facility] [address] [id number], [place] [address] 23 Dec, 2012 [facility] [place] [facility] [address] [id number] [place] [address] 21 Dec, 2012 [facility] [place] [facility] [address] [id number] [place] [address] 13 Dec, 2012 [facility] [place] [facility] [address] [id number] [place] [address] Nov, [facility] [place] [facility] [address] [id number] [place] [address] Nov, [facility] [address] [id number] [place] [address] Nov, [facility] [place] [facility] [address] [id number] [place] [address] Nov, [facility] [address] [id number] [place] [address] Nov, [facility] [address] [id number] [place] [address] Nov, [facility] [address] [id number] [place] [address] Oct, [facility] [address] [id number] [place] [address] Oct, [facility] [address] [id number] [place] [address] Oct, [facility] [address] [id number] [place] [address] Oct, [facility] [address] [id number] [place] [address] Sep, [facility] [address] [id number] [place] [address] Sep, [facility] [address] [id number] [place] [address] Sep, [facility] [address] [id number] [place] [address] Sep, [facility] [place] [facility] [address] [id number] [place] [address] Sep, [facility] [place] [facility] [address] [id number] [place] [address] August, [facility] [address] [id number] [place] [address] August, [facility] [address] [id number] [place] [address] Jul, [facility] [place] [facility] [address] [id number] [place] [address] Jul, [facility] [place] [facility] [address] [id number] [place] [address] 15 Jul, 2012 [facility] [place] [facility] [address] [id number] [place] [address] Jul, [facility] [address] [id number] [place] [address] Jul, [facility] [place] [facility] [address] [id number] [place] [address] Jun, [facility] [place] [facility] [address] [id number] [place] [address] Jun, [facility] [place] [facility] [address] [id number] [place] [address] Jun, [facility] [place] [facility] [address] [id number] [place] [address] Jun, [facility] [place] [facility] [address] [id number] [place] [address] Jun, [facility] [place] [facility] [address] [id number] [place] [address] May, [facility] [place] [facility] [address] [id number] [place] [address] May, [facility] [place] [facility] [address] [id number] [place] [address] May, [facility] [place] [facility] [address] [id number] [place] [address] May, [facility] [place] [facility] [address] [id number] [place] [address] May, [facility] [place] [facility] [address] [id number] [place] [address] 14 May, 2012 [facility] [address] [id number] [place] [address] 13 May, 2012 [facility] [address] [id number] [place] [address] 08 May, 2012 [facility] [address] [id number] [place] [address] 04 May, 2012 [facility] [address] [id number] [place] [address] Apr, [facility] [address] [id number] [place] [address] Apr, [facility] [address] [id number] [place] [address] Apr, [facility] [address] [id number] [place] [address] Apr, [facility] [address] [id number] [place] [address] Apr, [facility] [address] [id number] [place] [address] Mar, [facility] [address] [id number] [place] [address] Mar, [facility] [address] [id number] [place] [address] Mar, [facility] [address] [id number] [place] [address] Mar, [facility] [address] [id number] [place] [address] Mar, [facility] [address] [id number] [place] [address] Mar, [facility] [address] [id number] [place] [address] Mar, [facility] [place] [facility] [address] [id number] [place] [address] 17 Mar, 2012 [facility] [place] [facility] [address] [id number] [place] [address] Mar, [facility] [place] [facility] [address] [id number] [place] [address] Mar, [facility] [place] [facility] [address] [id number] [place] [address] 30 Feb, 2012 [facility] [place] [facility] [address] [id number] [place] [address] 30 Feb, 2012 [facility] [place] [facility] [address] [id number] [place] [address] Feb, [facility] [place] [facility] [address] [id number] [place] [address] Feb, [facility] [place] [facility] [address] [id number] [place] [address] Feb, [facility] [place] [facility] [address] [id number] [place] [address] Feb, [facility] [place] [facility] [address] [id number] [place] [address] Feb, [facility] [place] [facility] [address] [id number] [place] [address] Feb, [facility] [place] [facility] [address] [id number], [place] [address] 16 Feb, 2012 [facility] [place] [facility] [address] [id number] [place] [address] 16 Feb, 2012 [facility] [place] [facility] [address] [id number], [place] [address] 13 Feb, 2012 [facility] [place] [facility] [address] [id number] [place] [address] 13 Feb, 2012 [facility] [place] [facility] [address] [id number] [place] [address] Feb, [facility] [place] [facility] [address] [id number] [place] [address] Feb, [facility] [place] [facility] [address] [id number] [place] [address] Feb, [facility] [place] [facility] [address] [facility] [id number] [place] [address] Feb, [facility] [place] [facility] [address] [id number] [place] [address] Feb, [facility] [place] [facility] [address] [id number] [place] [address] Feb, [facility] [place] [facility] [address] [id number] [place] [address] Jan, [facility] [place] [facility] [address] [id number] [place] [address] Jan, [facility] [place] [facility] [address] [id number] [place] [address] Jan, [facility] [place] [facility] [address] [id number] [place] [address] Jan, [facility] [place] [facility] [address] [facility] [id number] [place] [address] Jan, [facility] [place] [facility] [address] [id number] [place] [address] Jan, [facility] [place] [facility] [address] [id number], [place] [address] Jan, [facility] [place] [facility] [address] [id number] [place] [address] Jan, [facility] [place] [facility] [address] [facility] [id number] [place] [address] Jan, [facility] [place] [facility] [address] [facility] [id number], [place] [address] Jan, [facility] [place] [facility] [address] [id number] [place] [address] 24 Dec, 2011 [facility] [place] [facility] [address] [id number] [place] [address] Dec, [facility] [place] [facility] [address] [id number] [place] [address] Dec, [facility] [place] [facility] [address] [id number] [place] [address] Dec, [facility] [place] [facility] [address] [id number] [place] [address] Nov, [facility] [place] [facility] [address] [id number] [place] [address] Nov, [facility] [place] [facility] [address] [id number] [place] [address] Nov, [facility] [place] [facility] [address] [id number] [place] [address] Nov, [facility] [place] [facility] [address] [id number] [place] [address] Nov, [facility] [place] [facility] [address] [id number] [place] [address] Nov, [facility] [place] [facility] [address] [id number] [place] [address] Oct, [facility] [place] [facility] [address] [id number] [place] [address] Oct, [facility] [place] [facility] [address] [id number] [place] [address] Oct, [facility] [place] [facility] [address] [id number] [place] [address] Oct, [facility] [place] [facility] [address] [id number] [place] [address] Oct, [facility] [place] [facility] [address] [id number] [place] [address] Sep, [facility] [place] [facility] [address] [id number] [place] [address] Sep, [facility] [place] [facility] [address] [id number] [place] [address] Sep, [facility] [place] [facility] [address] [id number] [place] [address] Sep, [facility] [place] [facility] [address] [id number] [place] [address] 05 Sep, 2011 [facility] [place] [facility] [address] [id number] [place] [address] August, [facility] [place] [facility] [address] [id number] [place] [address] August, [facility] [place] [facility] [address] [id number] [place] [address] August, [facility] [place] [facility] [address] [id number] [place] [address] August, [facility] [place] [facility] [address] [id number] [place] [address] Jul, [facility] [place] [facility] [address] [id number] [place] [address] 24 Jul, 2011 [facility] [place] [facility] [address] [id number] [place] [address] Jul, [facility] [place] [facility] [address] [id number], [place] [address] 18 Jul, 2011 [facility] [place] [facility] [address] [id number] [place] [address] 18 Jul, 2011 [facility] [place] [facility] [address] [id number] [place] [address] 12 Jul, 2011 [facility] [place] [facility] [address] [id number] [place] [address] Jul, [facility] [place] [facility] [address] [id number] [place] [address] 10 Jul, 2011 [facility] [address] [id number] [place] [address] Jul, [facility] [address] [id number] [place] [address] Jul, [facility] [address] [id number] [place] [address] 05 Jul, 2011 [facility] [address] [id number] [place] [address] Jul, [facility] [address] [id number] [place] [address] Jul, [facility] [address] [id number] [place] [address] Jul, [facility] [address] [id number] [place] [address] Jun, [facility] [address] [id number] [place] [address] Jun, [facility] [address] [id number] [place] [address] Jun, [facility] [address] [id number] [place] [address] Jun, [facility] [place] [facility] [address] [id number] [place] [address] May, [facility] [address] [id number] [place] [address] May, [facility] [place] [facility] [address] [id number] [place] [address] May, [facility] [address] [id number] [place] [address] Apr, [facility] [address] [id number] [place] [address] Apr, [facility] [place] [facility] [address] [id number] [place] [address] 13 Apr, 2011 [facility] [place] [facility] [address] [id number] [place] [address] Apr, [facility] [place] [facility] [address] [id number] [place] [address] 09 Apr, 2011 [facility] [place] [facility] [address] [id number] [place] [address] Mar, [facility] [place] [facility] [address] [id number] [place] [address] Mar, [facility] [place] [facility] [address] [id number] [place] [address] Mar, [facility] [place] [facility] [address] [id number] [place] [address] Mar, [facility] [place] [facility] [address] [id number] [place] [address] Mar, [facility] [place] [facility] [address] [id number] [place] [address] Mar, [facility] [place] [facility] [address] [id number] [place] [address] Mar, [facility] [place] [facility] [address] [id number] [place] [address] Feb, [facility] [place] [facility] [address] [id number] [place] [address] Feb, [facility] [place] [facility] [address] [id number] [place] [address] Feb, [facility] [place] [facility] [address] [id number] [place] [address] Feb, [facility] [place] [facility] [address] [id number] [place] [address] 16 Feb, 2011 [facility] [place] [facility] [address] [id number] [place] [address] 14 Feb, 2011 [facility] [place] [facility] [address] [id number] [place] [address] 10 Feb, 2011 [facility] [place] [facility] [address] [id number] [place] [address] 31 Jan, 2011 [facility] [place] [facility] [address] [id number] [place] [address] 31 Jan, 2011 [facility] [place] [facility] [address] [id number] [place] [address] 31 Jan, 2011 [facility] [place] [facility] [address] [id number] [place] [address] 18 Jan, 2011 [facility] [place] [facility] [address] [id number] [place] [address] 17 Jan, 2011 [facility] [place] [facility] [address] [id number] [place] [address] 17 Jan, 2011 [facility] [place] [facility] [address] [id number] [place] [address] 17 Jun, 2010 [facility] [place] [facility] [address] [id number] [place] [address] 30 Mar, 2010 [facility] [place] [facility] [address] [id number] [place] [address] 20 Mar, 2010 [facility] [place] [facility] [address] [id number] [place] [address] 14 Mar, 2010 [facility] [place] [facility] [address] [id number] [place] [address] 14 Mar, 2010 [facility] [place] [facility] [address] [id number] [place] [address] 13 Mar, 2010 [facility] [place] [facility] [address] [id number] [place] [address] 07 Mar, 2010 [facility] [place] [facility] [address] [facility] [id number] [place] [address] 02 Mar, 2010 [facility] [place] [facility] [address] [id number] [place] [address] Mar, [facility] [place] [facility] [address] [id number] [place] [address] 30 Feb, 2010 [facility] [place] [facility] [address] [id number] [place] [address] Feb, [facility] [place] [facility] [address] [id number] [place] [address] Feb, [facility] [place] [facility] [address] [id number] [place] [address] 17 Feb, 2010 [facility] [place] [facility] [address] [id number] [place] [address] 16 Feb, 2010 [facility] [place] [facility] [address] [id number] [place] [address] Feb, [facility] [place] [facility] [address] [id number] [place] [address] Feb, [facility] [place] [facility] [address] [id number] [place] [address] Feb, [facility] [place] [facility] [address] [id number] [place] [address] Jan, [facility] [place] [facility] [address] [id number] [place] [address] Jan, [facility] [place] [facility] [address] [id number] [place] [address] Jan, [facility] [place] [facility] [address] [id number] [place] [address] Jan, [facility] [place] [facility] [address] [id number] [place] [address] Mar, [facility] [place] [facility] [address] [id number] [place] [address] Mar, [facility] [place] [facility] [address] [id number] [place] [address] Mar, [facility] [address] [id number] [address] Mar, [facility] [id number], [place] [address] 14 Mar, 2009 [facility] [address] [id number] [address] Mar, [facility] [id number], [place] [address] Feb, [facility] [id number], [place] [address] Feb, [facility] [id number], [place] [address] Jan, [facility] [id number], [place] [address] Sep, [facility] [address] [id number] [address] May, IMMUNIZATIONS No Known Immunizations SOCIAL HISTORY Never Assessed REASON FOR VISIT loose stools PLAN OF CARE VITAL SIGNS MEDICATIONS Unknown [...] Surgical History Left ear surgery Hospitalization History [facility] [place]- Spontaneous Pneumothorax Hospitalization History [facility]- Colon resection [facility] [facility] - [id number]/ [id number] urinate [id number]
--- OUTSIDE RECORDS SUMMARY | 2018-10-15 01:32 | XMS REPORT ---
Author Author NANCY MARIE [facility] Address [address] [place] [address] Care Team Providers Care Head Sawyer Automatic Name Role Phone NANCY MARIE Unavailable PROBLEMS Type Condition ICD9-CM Code USN70-JS Code Onset Dates Condition Status SNOMED Code Problem Anxiety F41.9 Active 93363012 Problem Chronic pain G89.29 Active 93293728 Problem Constipation K59.00 Active 91886445 Problem Insomnia G47.00 Active 713254652 Problem HTN (hypertension) I10 Active 87825791 Problem Chronic kidney disease, stage III (moderate) N18.3 Active 846029888 Problem Primary insomnia F51.01 Active 3200965 Problem Thoracic back pain, unspecified back pain laterality, unspecified chronicity M54.6 Active 641522576 Problem Hyperlipidemia E78.5 Active 33193171 Problem Environmental allergies Z91.09 Active 092852345 Problem Vitamin D deficiency E55.9 Active 04017709 ALLERGIES No Information ENCOUNTERS Encounter Location Date Diagnosis [place] [id number] [place] [address] Dec, [place] [id number] [place] [address] Dec, Diarrhea of presumed infectious origin R19.7 [facility] [place] [id number] [place] [address] Dec, Diarrhea of presumed infectious origin R19.7 [place] [id number] [place] [address] 18 Dec, 2017 Thoracic back pain, unspecified back pain laterality, unspecified chronicity M54.6 [facility] [place] [id number] [place] [address] 17 Dec, 2017 [place] [address], [place] [address] 17 Dec, 2017 Anxiety F41.9 and Thoracic back pain, unspecified back pain laterality, unspecified chronicity M54.6 [place] [address], [place] [address] Dec, Diarrhea of presumed infectious origin R19.7 [place] [address] [place] [address] Dec, [place] [id number] [place] [address] Dec, Anxiety F41.9 and Thoracic back pain, unspecified back pain laterality, unspecified chronicity M54.6 [place] [address] [place] [address] Dec, Anxiety F41.9 and Thoracic back pain, unspecified back pain laterality, unspecified chronicity M54.6 [facility] [address] [place] [id number] Dec, Diarrhea of presumed infectious origin R19.7 ; Anxiety F41.9 ; Thoracic back pain, unspecified back pain laterality, unspecified chronicity M54.6 and HTN (hypertension) I10 [place] [address] [place] [address] Dec, Anxiety F41.9 [facility] [address] [place] [id number] Dec, Anxiety F41.9 ; Diarrhea of presumed infectious origin R19.7 ; Generalized abdominal pain R10.84 and Localized edema R60.0 [place] [address] [place] [address] Nov, [facility] [address] [place] [id number] Nov, Anxiety F41.9 ; Urinary retention R33.9 ; Diarrhea of presumed infectious origin R19.7 ; Weakness R53.1 ; Acute kidney failure, unspecified N17.9 ; Chronic kidney disease, stage III (moderate) N18.3 and Thoracic back pain, unspecified back pain laterality, unspecified chronicity M54.6 [place] [id number] [place] [address] Oct, Thoracic back pain, unspecified back pain laterality, unspecified chronicity M54.6 and Anxiety F41.9 [place] [id number] [place] [address] Sep, Thoracic back pain, unspecified back pain laterality, unspecified chronicity M54.6 and Anxiety F41.9 [place] [id number] [place] [address] Sep, Thoracic back pain, unspecified back pain laterality, unspecified chronicity M54.6 ; Anxiety F41.9 and Encounter for medication monitoring Z51.81 [place] [id number] [place] [address] August, [place] [address] [address] August, Thoracic back pain, unspecified back pain laterality, unspecified chronicity M54.6 and Anxiety F41.9 [place] [id number] [place] [address] August, Hyperlipidemia E78.5 and HTN (hypertension) I10 [place] [id number] [place] [address] August, [place] [id number] [place] [address] August, Medicare welcome exam Z00.00 ; Chronic kidney failure N18.9 ; Anxiety F41.9 ; Chronic pain G89.29 ; Insomnia G47.00 ; Hyperlipidemia E78.5 ; HTN (hypertension) I10 and Thoracic back pain, unspecified back pain laterality, unspecified chronicity M54.6 [place] [id number] [place] [address] Jul, [place] [id number] [place] [address] Jul, [place] [address] [address] Jul, [facility], [place] [id number] [place] [address] Jul, Anxiety F41.9 [place] [address] [address] Jul, Thoracic back pain, unspecified back pain laterality, unspecified chronicity M54.6 and Anxiety F41.9 [place] [address] [address] Jun, Thoracic back pain, unspecified back pain laterality, unspecified chronicity M54.6 and Anxiety F41.9 [place] [address] [address] May, Thoracic back pain, unspecified back pain laterality, unspecified chronicity M54.6 and Anxiety F41.9 [place] [address] [address] Apr, Thoracic back pain, unspecified back pain laterality, unspecified chronicity M54.6 and Anxiety F41.9 [place] [id number] [place] [address] Mar, [place] [id number] [place] [address] Mar, Thoracic back pain, unspecified back pain laterality, unspecified chronicity M54.6 and Anxiety F41.9 [place] [address] [address] Mar, Thoracic back pain, unspecified back pain laterality, unspecified chronicity M54.6 ; HTN (hypertension) I10 ; Hyperlipidemia E78.5 and Anxiety F41.9 [place] [id number] [place] [address] Feb, Thoracic back pain, unspecified back pain laterality, unspecified chronicity M54.6 and Anxiety F41.9 [facility], [place] [id number] [place] [address] Nov, [facility], [place] [id number] [place] [address] Oct, [facility] [place] [address] [address] Oct, Thoracic back pain, unspecified back pain laterality, unspecified chronicity M54.6 [place] [address] [address] Oct, HTN (hypertension) I10 ; Constipation K59.00 ; Hyperlipidemia E78.5 ; Thoracic back pain, unspecified back pain laterality, unspecified chronicity M54.6 ; Chronic pain G89.29 ; Anxiety F41.9 ; Chronic kidney failure N18.9 ; Environmental allergies Z91.09 ; Vitamin D deficiency E55.9 and Primary insomnia F51.01 [place] [id number] [place] [address] Sep, Anxiety F41.9 [place] [id number] [place] [address] Sep, [place] [id number] [place] [address] August, Anxiety F41.9 [facility], [place] [id number] [place] [address] August, [facility], [place] [id number] [place] [address] Jul, Anxiety F41.9 [facility], [place] [id number] [place] [address] Jul, [facility], [place] [id number] [place] [address] Jun, Anxiety F41.9 [facility], [place] [address], [place] [address] Jun, [facility], [place] [address], [place] [address] May, [facility], [place] [address], [place] [address] May, [facility], [place] [id number] [place] [address] May, [facility], [place] [address] [place] [address] Apr, [facility], [place] [address] [place] [address] Apr, [facility], [place] [id number] [place] [address] Apr, Anxiety F41.9 [facility], [place] [address], [place] [address] Apr, Anxiety F41.9 [facility], [place] [address] [place] [address] Apr, [facility], [place] [address], [place] [address] Mar, HTN (hypertension) I10 ; Tremor R25.1 ; Hypercholesterolemia E78.0 ; Constipation K59.00 ; Chronic pain G89.29 ; Hyperlipidemia E78.5 ; Insomnia G47.00 ; Anxiety F41.9 and Thoracic back pain, unspecified back pain laterality, unspecified chronicity M54.6 [facility], [place] [id number], [place] [address] Mar, Tremor R25.1 ; HTN (hypertension) I10 ; Hypercholesterolemia E78.0 ; Constipation K59.00 ; Chronic pain G89.29 ; Hyperlipidemia E78.5 ; Insomnia G47.00 ; Anxiety F41.9 and Thoracic back pain, unspecified back pain laterality, unspecified chronicity M54.6 [facility], [place] [address] [facility] [id number] [place] [address] Mar, [facility], [place] [address] [facility] [id number] [place] [address] Mar, [facility], [place] [address] [facility] [id number] [place] [address] Feb, [facility], [place] [address] [facility] [id number] [place] [address], [place] [address] Jan, [facility], [place] [address] [facility] [id number] [place] [address] Jan, [facility], [place] [address] [facility] [id number] [place] [address], [place] [address] 15 Dec, 2015 [facility], [place] [id number] [address] Nov, [facility], [place] [id number] [place] [address] Nov, [facility], [place] [id number] [place] [address] Oct, Anxiety F41.9 [facility], [place] [id number], [place] [address] Oct, Chronic pain G89.29 [facility], [place] [address], [place] [address] Sep, [facility], [place] [id number], [place] [address] Sep, [facility], [place] [address] [facility] [id number] [address] Sep, [facility], [place] [address] [facility] [id number], [place] [address] Sep, [facility], [place] [id number], [place] [address] 16 Sep, 2015 Chronic pain syndrome G89.4 [facility], [place] [id number] [place] [address] Sep, HTN (hypertension) I10 ; Chronic pain G89.29 ; Hypercholesterolemia E78.0 ; Chronic kidney failure N18.9 ; Constipation, unspecified constipation type K59.00 ; Anxiety F41.9 and Thoracic back pain, unspecified back pain laterality, unspecified chronicity M54.6 [facility], [place] [address] [address] August, Chronic pain syndrome G89.4 [facility], [place] [address] [address] August, Chronic pain syndrome G89.4 [place] [address] [address] Jul, Anxiety disorder, unspecified F41.9 and Chronic pain syndrome G89.4 [place] [address] [address] Jul, Insomnia, unspecified G47.00 and Chronic pain syndrome G89.4 [place] [address] [address] Jul, Allergic rhinitis J30.9 [facility], [place] [id number] [place] [address] Jul, Constipation, unspecified K59.00 [place] [id number] [place] [address] Jul, [place] [id number] [place] [address] Jun, [facility], [place] [address] [address] Jun, [facility], [place] [id number] [place] [address] Jun, [facility], [place] [address] [address] Jun, [facility], [place] [id number] [place] [address] Jun, [facility], [place] [id number] [place] [address] Jun, [facility], [place] [id number] [place] [address] May, [facility], [place] [id number] [place] [address] May, [facility], [place] [id number] [place] [address] May, Anxiety F41.9 ; Insomnia G47.00 ; Hyperlipidemia E78.5 ; Chronic pain G89.29 ; HTN (hypertension) I10 ; Environmental allergies V15.09 and Constipation 564.00 [facility] [place] [id number] [place] [address] Apr, [facility], [place] [id number] [place] [address] Apr, [facility], [place] [id number] [place] [address] Apr, [facility], [place] [id number] [place] [address] Mar, [facility], [place] [id number] [place] [address] Mar, [facility], [place] [address] [place] [address] Mar, [facility], [place] [id number] [place] [address] Feb, [facility], [place] [id number] [place] [address] Feb, [facility], [place] [id number] [place] [address] Feb, [facility], [place] [id number] [place] [address] Jan, HTN (hypertension) I10 ; Constipation K59.00 ; Chronic pain G89.29 ; Hyperlipidemia E78.5 ; Hypercholesterolemia E78.0 ; Insomnia G47.00 and Anxiety F41.9 [place] [id number] [place] [address] Jan, [place] [address] [address] Dec, [address] [address] Nov, [place] [address] [address] Oct, Chronic kidney disease, unspecified 585.9 ; Chronic pain syndrome 338.4 ; Hyperlipidemia 272.4 and Essential hypertension 401.9 [place] [id number] [place] [address] Oct, Chronic kidney disease 585.9 [place] [id number] [place] [address] Oct, [id number] [place] [address] Oct, Chronic kidney disease, unspecified 585.9 ; Hypercalcemia 275.42 ; Hyperlipidemia 272.4 ; Essential hypertension 401.9 ; Chronic pain syndrome 338.4 ; Insomnia 780.52 ; Constipation 564.00 ; Environmental allergies V15.09 and Anxiety 300.00 [place] [id number] [place] [address] Oct, Chronic kidney disease 585.9 [facility] [place] [id number] [place] [address] Oct, [place] [id number] [place] [address] Oct, Chronic kidney disease 585.9 and Hyperlipidemia 272.4 [facility] [address] [id number] [place] [address] 10 Oct, 2014 [facility] [address] [id number] [place] [address] 10 Oct, 2014 [facility] [address] [facility] [id number] [place] [address] 18 Sep, 2014 [facility] [address] [id number] [place] [address] 15 Sep, 2014 [facility] [address] [id number] [place] [address] Sep, Chronic kidney disease 585.9 and Hyperlipidemia 272.4 [facility] [address] [id number] [place] [address] Sep, [facility] [address] [facility] [id number] [place] [address] August, [facility] [address] [id number] [place] [address] August, [facility] [address] [facility] [id number] [place] [address] 14 Jul, 2014 [facility] [address] [facility] [id number] [place] [address] Jul, [facility] [address] [facility] [id number] [place] [address] 20 Jun, 2014 [facility] [address] [id number] [place] [address] 20 Jun, 2014 [facility] [address] [id number] [place] [address] 16 Jun, 2014 [facility] [address] [facility] [id number] [place] [address] 16 Jun, 2014 [facility] [address] [facility] [id number] [place] [address] Jun, [facility] [place] [facility] [address] [id number] [place] [address] Jun, [facility] [place] [facility] [address] [id number] [place] [address] Jun, [facility] [place] [facility] [address] [id number] [place] [address] Jun, [facility] [place] [facility] [address] [id number] [place] [address] May, [facility] [place] [facility] [address] [id number] [place] [address] May, [facility] [place] [facility] [address] [id number] [place] [address] May, [facility] [place] [facility] [address] [id number] [place] [address] May, [facility] [place] [facility] [address] [id number] [place] [address] Apr, [facility] [place] [facility] [address] [id number] [place] [address] Apr, [facility] [place] [facility] [address] [id number] [place] [address] Apr, [facility] [place] [facility] [address] [id number] [place] [address] Apr, [facility] [place] [facility] [address] [id number], [place] [address] Apr, [facility] [place] [facility] [address] [id number] [place] [address] Apr, [facility] [place] [facility] [address] [id number] [place] [address] Apr, [facility] [place] [facility] [address] [id number] [place] [address] Apr, [facility] [place] [facility] [address] [id number] [place] [address] 16 Apr, 2014 [facility] [place] [facility] [address] [id number] [place] [address] Apr, [facility] [place] [facility] [address] [id number] [place] [address] Apr, [facility] [place] [facility] [address] [id number] [place] [address] Mar, [facility] [place] [facility] [address] [id number] [place] [address] Mar, [facility] [place] [facility] [address] [id number] [place] [address] Feb, [facility] [place] [facility] [address] [id number] [place] [address] Feb, [facility] [place] [facility] [address] [id number] [place] [address] Feb, [facility] [place] [facility] [address] [id number] [place] [address] Feb, [facility] [place] [facility] [address] [id number] [place] [address] Feb, [facility] [place] [facility] [address] [facility] [id number] [place] [address] Feb, [facility] [place] [facility] [address] [id number] [place] [address] Feb, [facility] [place] [facility] [address] [id number] [place] [address] Feb, [facility] [place] [facility] [address] [id number] [place] [address] Feb, [facility] [place] [facility] [address] [id number] [place] [address] Feb, [facility] [place] [facility] [address] [id number] [place] [address] Jan, [facility] [place] [facility] [address] [id number] [place] [address] Jan, [facility] [place] [facility] [address] [id number] [place] [address] Jan, [facility] [place] [facility] [address] [id number] [place] [address] Jan, [facility] [place] [facility] [address] [id number] [place] [address] Jan, [facility] [place] [facility] [address] [id number] [place] [address] 24 Jan, 2014 [facility] [place] [facility] [address] [id number] [place] [address] Jan, [facility] [place] [facility] [address] [id number] [place] [address] Jan, [facility] [place] [facility] [address] [id number] [place] [address] 16 Jan, 2014 [facility] [place] [facility] [address] [id number] [place] [address] Jan, [facility] [place] [facility] [address] [id number] [place] [address] Jan, [facility] [place] [facility] [address] [id number] [place] [address] 26 Dec, 2013 [facility] [place] [facility] [address] [id number] [place] [address] 26 Dec, 2013 [facility] [place] [facility] [address] [id number] [place] [address] 19 Dec, 2013 [facility] [place] [facility] [address] [id number] [place] [address] 19 Dec, 2013 [facility] [place] [facility] [address] [id number] [place] [address] 18 Sep, 2013 [facility] [place] [facility] [address] [id number] [place] [address] Dec, [facility] [place] [facility] [address] [id number] [place] [address] Dec, [facility] [place] [facility] [address] [id number] [place] [address] Dec, [facility] [place] [facility] [address] [id number] [place] [address] Nov, [facility] [place] [facility] [address] [id number] [place] [address] Nov, [facility] [place] [facility] [address] [id number] [place] [address] Nov, [facility] [place] [facility] [address] [id number] [place] [address] Nov, [facility] [place] [facility] [address] [id number] [place] [address] Nov, [facility] [place] [facility] [address] [id number] [place] [address] Nov, [facility] [place] [facility] [address] [id number] [place] [address] Nov, [facility] [place] [facility] [address] [id number] [place] [address] Nov, [facility] [place] [facility] [address] [id number] [place] [address] Oct, [facility] [place] [facility] [address] [id number] [place] [address] Oct, [facility] [place] [facility] [address] [id number] [place] [address] Oct, [facility] [place] [facility] [address] [id number] [place] [address] Oct, [facility] [place] [facility] [address] [id number] [place] [address] Sep, [facility] [place] [facility] [address] [id number] [place] [address] Sep, [facility] [address] [id number] [place] [address] Sep, [facility] [place] [facility] [address] [id number] [place] [address] Sep, [facility] [place] [facility] [address] [id number] [place] [address] Sep, [facility] [place] [facility] [address] [id number] [place] [address] Sep, [facility] [place] [facility] [address] [id number] [place] [address] Sep, [facility] [place] [facility] [address] [id number] [place] [address] Sep, [facility] [address] [id number] [place] [address] August, [facility] [address] [id number] [place] [address] August, [facility] [place] [facility] [address] [id number] [place] [address] August, [facility] [address] [id number] [place] [address] August, [facility] [place] [facility] [address] [id number] [place] [address] August, [facility] [place] [facility] [address] [id number] [place] [address] August, [facility] [place] [facility] [address] [id number] [place] [address] August, [facility] [place] [facility] [address] [id number] [place] [address] August, [facility] [place] [facility] [address] [id number] [place] [address] August, [facility] [place] [facility] [address] [id number] [place] [address] August, [facility] [place] [facility] [address] [id number] [place] [address] Jul, [facility] [place] [facility] [address] [id number] [place] [address] Jul, [facility] [place] [facility] [address] [id number] [place] [address] Jul, [facility] [place] [facility] [address] [id number] [place] [address] Jul, [facility] [place] [facility] [address] [id number] [place] [address] Jul, [facility] [place] [facility] [address] [id number] [place] [address] Jul, [facility] [place] [facility] [address] [id number] [place] [address] Jul, [facility] [place] [facility] [address] [id number] [place] [address] Jul, [facility] [place] [facility] [address] [id number] [place] [address] Jun, [facility] [place] [facility] [address] [id number] [place] [address] Jun, [facility] [place] [facility] [address] [id number] [place] [address] Jun, [facility] [place] [facility] [address] [id number] [place] [address] Jun, [facility] [place] [facility] [address] [id number] [place] [address] Jun, [facility] [place] [facility] [address] [id number] [place] [address] Jun, [facility] [place] [facility] [address] [id number] [place] [address] May, [facility] [place] [facility] [address] [id number] [place] [address] May, [facility] [place] [facility] [address] [id number] [place] [address] May, [facility] [place] [facility] [address] [id number] [place] [address] May, [facility] [place] [facility] [address] [id number] [place] [address] May, [facility] [place] [facility] [address] [id number] [place] [address] May, [facility] [place] [facility] [address] [id number] [place] [address] May, [facility] [place] [facility] [address] [id number] [place] [address] Apr, [facility] [place] [facility] [address] [id number] [place] [address] Apr, [facility] [place] [facility] [address] [id number] [place] [address] Apr, [facility] [place] [facility] [address] [id number] [place] [address] Apr, [facility] [place] [facility] [address] [id number] [place] [address] Apr, [facility] [place] [facility] [address] [id number] [place] [address] Apr, [facility] [place] [facility] [address] [id number] [place] [address] Mar, [facility] [place] [facility] [address] [id number] [place] [address] Mar, [facility] [place] [facility] [address] [id number] [place] [address] Mar, [facility] [place] [facility] [address] [id number] [place] [address] Mar, [facility] [address] [id number] [place] [address] Mar, [facility] [address] [id number] [place] [address] Mar, [facility] [address] [id number] [place] [address] Mar, [facility] [address] [id number] [place] [address] Mar, [facility] [address] [id number] [place] [address] Mar, [facility] [address] [id number] [place] [address] Mar, [facility] [address] [id number] [place] [address] Feb, [facility] [address] [id number] [place] [address] Feb, [facility] [address] [id number] [place] [address] Feb, [facility] [address] [id number] [place] [address] Feb, [facility] [place] [facility] [address] [id number], [place] [address] Feb, [facility] [place] [facility] [address] [id number] [place] [address] 14 Feb, 2013 [facility] [place] [facility] [address] [id number] [place] [address] Feb, [facility] [place] [facility] [address] [id number] [place] [address] Feb, [facility] [place] [facility] [address] [id number], [place] [address] Feb, [facility] [place] [facility] [address] [id number] [place] [address] Feb, [facility] [place] [facility] [address] [id number] [place] [address] Jan, [facility] [place] [facility] [address] [id number] [place] [address] Jan, [facility] [place] [facility] [address] [id number] [place] [address] Jan, [facility] [place] [facility] [address] [id number] [place] [address] Jan, [facility] [place] [facility] [address] [id number] [place] [address] Jan, [facility] [place] [facility] [address] [id number] [place] [address] Jan, [facility] [place] [facility] [address] [id number] [place] [address] Jan, [facility] [place] [facility] [address] [id number] [place] [address] Jan, [facility] [place] [facility] [address] [id number] [place] [address] Jan, [facility] [place] [facility] [address] [id number], [place] [address] 25 Dec, 2012 [facility] [place] [facility] [address] [id number], [place] [address] 23 Dec, 2012 [facility] [place] [facility] [address] [id number] [place] [address] 21 Dec, 2012 [facility] [place] [facility] [address] [id number] [place] [address] 13 Dec, 2012 [facility] [place] [facility] [address] [id number] [place] [address] Nov, [facility] [place] [facility] [address] [id number] [place] [address] Nov, [facility] [address] [id number] [place] [address] Nov, [facility] [place] [facility] [address] [id number] [place] [address] Nov, [facility] [address] [id number] [place] [address] Nov, [facility] [address] [id number] [place] [address] Nov, [facility] [address] [id number] [place] [address] Oct, [facility] [address] [id number] [place] [address] Oct, [facility] [address] [id number] [place] [address] Oct, [facility] [address] [id number] [place] [address] Oct, [facility] [address] [id number] [place] [address] Sep, [facility] [address] [id number] [place] [address] Sep, [facility] [address] [id number] [place] [address] Sep, [facility] [address] [id number] [place] [address] Sep, [facility] [place] [facility] [address] [id number] [place] [address] Sep, [facility] [place] [facility] [address] [id number] [place] [address] August, [facility] [address] [id number] [place] [address] August, [facility] [address] [id number] [place] [address] Jul, [facility] [place] [facility] [address] [id number] [place] [address] Jul, [facility] [place] [facility] [address] [id number] [place] [address] 15 Jul, 2012 [facility] [place] [facility] [address] [id number] [place] [address] Jul, [facility] [address] [id number] [place] [address] Jul, [facility] [place] [facility] [address] [id number] [place] [address] Jun, [facility] [place] [facility] [address] [id number] [place] [address] Jun, [facility] [place] [facility] [address] [id number] [place] [address] Jun, [facility] [place] [facility] [address] [id number] [place] [address] Jun, [facility] [place] [facility] [address] [id number] [place] [address] Jun, [facility] [place] [facility] [address] [id number] [place] [address] May, [facility] [place] [facility] [address] [id number] [place] [address] May, [facility] [place] [facility] [address] [id number] [place] [address] May, [facility] [place] [facility] [address] [id number] [place] [address] May, [facility] [place] [facility] [address] [id number] [place] [address] May, [facility] [place] [facility] [address] [id number] [place] [address] 14 May, 2012 [facility] [address] [id number] [place] [address] 13 May, 2012 [facility] [address] [id number] [place] [address] 08 May, 2012 [facility] [address] [id number] [place] [address] 04 May, 2012 [facility] [address] [id number] [place] [address] Apr, [facility] [address] [id number] [place] [address] Apr, [facility] [address] [id number] [place] [address] Apr, [facility] [address] [id number] [place] [address] Apr, [facility] [address] [id number] [place] [address] Apr, [facility] [address] [id number] [place] [address] Mar, [facility] [address] [id number] [place] [address] Mar, [facility] [address] [id number] [place] [address] Mar, [facility] [address] [id number] [place] [address] Mar, [facility] [address] [id number] [place] [address] Mar, [facility] [address] [id number] [place] [address] Mar, [facility] [address] [id number] [place] [address] Mar, [facility] [place] [facility] [address] [id number] [place] [address] 17 Mar, 2012 [facility] [place] [facility] [address] [id number] [place] [address] Mar, [facility] [place] [facility] [address] [id number] [place] [address] Mar, [facility] [place] [facility] [address] [id number] [place] [address] 30 Feb, 2012 [facility] [place] [facility] [address] [id number] [place] [address] 30 Feb, 2012 [facility] [place] [facility] [address] [id number] [place] [address] Feb, [facility] [place] [facility] [address] [id number] [place] [address] Feb, [facility] [place] [facility] [address] [id number] [place] [address] Feb, [facility] [place] [facility] [address] [id number] [place] [address] Feb, [facility] [place] [facility] [address] [id number] [place] [address] Feb, [facility] [place] [facility] [address] [id number] [place] [address] Feb, [facility] [place] [facility] [address] [id number], [place] [address] 16 Feb, 2012 [facility] [place] [facility] [address] [id number] [place] [address] 16 Feb, 2012 [facility] [place] [facility] [address] [id number], [place] [address] 13 Feb, 2012 [facility] [place] [facility] [address] [id number] [place] [address] 13 Feb, 2012 [facility] [place] [facility] [address] [id number] [place] [address] Feb, [facility] [place] [facility] [address] [id number] [place] [address] Feb, [facility] [place] [facility] [address] [id number] [place] [address] Feb, [facility] [place] [facility] [address] [facility] [id number] [place] [address] Feb, [facility] [place] [facility] [address] [id number] [place] [address] Feb, [facility] [place] [facility] [address] [id number] [place] [address] Feb, [facility] [place] [facility] [address] [id number] [place] [address] Jan, [facility] [place] [facility] [address] [id number] [place] [address] Jan, [facility] [place] [facility] [address] [id number] [place] [address] Jan, [facility] [place] [facility] [address] [id number] [place] [address] Jan, [facility] [place] [facility] [address] [facility] [id number] [place] [address] Jan, [facility] [place] [facility] [address] [id number] [place] [address] Jan, [facility] [place] [facility] [address] [id number], [place] [address] Jan, [facility] [place] [facility] [address] [id number] [place] [address] Jan, [facility] [place] [facility] [address] [facility] [id number] [place] [address] Jan, [facility] [place] [facility] [address] [facility] [id number][place] [address] Jan, [facility] [place] [facility] [address] [id number] [place] [address] 24 Dec, 2011 [facility] [place] [facility] [address] [id number] [place] [address] Dec, [facility] [place] [facility] [address] [id number] [place] [address] Dec, [facility] [place] [facility] [address] [id number] [place] [address] Dec, [facility] [place] [facility] [address] [id number] [place] [address] Nov, [facility] [place] [facility] [address] [id number] [place] [address] Nov, [facility] [place] [facility] [address] [id number] [place] [address] Nov, [facility] [place] [facility] [address] [id number] [place] [address] Nov, [facility] [place] [facility] [address] [id number] [place] [address] Nov, [facility] [place] [facility] [address] [id number] [place] [address] Nov, [facility] [place] [facility] [address] [id number] [place] [address] Oct, [facility] [place] [facility] [address] [id number] [place] [address] Oct, [facility] [place] [facility] [address] [id number] [place] [address] Oct, [facility] [place] [facility] [address] [id number] [place] [address] Oct, [facility] [place] [facility] [address] [id number] [place] [address] Oct, [facility] [place] [facility] [address] [id number] [place] [address] Sep, [facility] [place] [facility] [address] [id number] [place] [address] Sep, [facility] [place] [facility] [address] [id number] [place] [address] Sep, [facility] [place] [facility] [address] [id number] [place] [address] Sep, [facility] [place] [facility] [address] [id number] [place] [address] 05 Sep, 2011 [facility] [place] [facility] [address] [id number] [place] [address] August, [facility] [place] [facility] [address] [id number] [place] [address] August, [facility] [place] [facility] [address] [id number] [place] [address] August, [facility] [place] [facility] [address] [id number] [place] [address] August, [facility] [place] [facility] [address] [id number] [place] [address] Jul, [facility] [place] [facility] [address] [id number] [place] [address] 24 Jul, 2011 [facility] [place] [facility] [address] [id number] [place] [address] Jul, [facility] [place] [facility] [address] [id number] [address] 18 Jul, 2011 [facility] [place] [facility] [address] [id number] [place] [address] 18 Jul, 2011 [facility] [place] [facility] [address] [id number] [place] [address] 12 Jul, 2011 [facility] [place] [facility] [address] [id number] [place] [address] Jul, [facility] [place] [facility] [address] [id number] [place] [address] 10 Jul, 2011 [facility] [address] [id number] [place] [address] Jul, [facility] [address] [id number] [place] [address] Jul, [facility] [address] [id number] [place] [address] 05 Jul, 2011 [facility] [address] [id number] [place] [address] Jul, [facility] [address] [id number] [place] [address] Jul, [facility] [address] [id number] [place] [address] Jul, [facility] [address] [id number] [place] [address] Jun, [facility] [address] [id number] [place] [address] Jun, [facility] [address] [id number] [place] [address] Jun, [facility] [address] [id number] [place] [address] Jun, [facility] [place] [facility] [address] [id number] [place] [address] May, [facility] [address] [id number] [place] [address] May, [facility] [place] [facility] [address] [id number] [place] [address] May, [facility] [address] [id number] [place] [address] Apr, [facility] [address] [id number] [place] [address] Apr, [facility] [place] [facility] [address] [id number] [place] [address] 13 Apr, 2011 [facility] [place] [facility] [address] [id number] [place] [address] Apr, [facility] [place] [facility] [address] [id number] [place] [address] 09 Apr, 2011 [facility] [place] [facility] [address] [id number] [place] [address] Mar, [facility] [place] [facility] [address] [id number] [place] [address] Mar, [facility] [place] [facility] [address] [id number] [place] [address] Mar, [facility] [place] [facility] [address] [id number] [place] [address] Mar, [facility] [place] [facility] [address] [id number] [place] [address] Mar, [facility] [place] [facility] [address] [id number] [place] [address] Mar, [facility] [place] [facility] [address] [id number] [place] [address] Mar, [facility] [place] [facility] [address] [id number] [place] [address] Feb, [facility] [place] [facility] [address] [id number] [place] [address] Feb, [facility] [place] [facility] [address] [id number] [place] [address] Feb, [facility] [place] [facility] [address] [id number] [place] [address] Feb, [facility] [place] [facility] [address] [id number] [place] [address] 16 Feb, 2011 [facility] [place] [facility] [address] [id number] [place] [address] 14 Feb, 2011 [facility] [place] [facility] [address] [id number] [place] [address] 10 Feb, 2011 [facility] [place] [facility] [address] [id number] [place] [address] 31 Jan, 2011 [facility] [place] [facility] [address] [id number] [place] [address] 31 Jan, 2011 [facility] [place] [facility] [address] [id number] [place] [address] 31 Jan, 2011 [facility] [place] [facility] [address] [id number] [place] [address] 18 Jan, 2011 [facility] [place] [facility] [address] [id number] [place] [address] 17 Jan, 2011 [facility] [place] [facility] [address] [id number] [place] [address] 17 Jan, 2011 [facility] [place] [facility] [address] [id number] [place] [address] 17 Jun, 2010 [facility] [place] [facility] [address] [id number] [place] [address] 30 Mar, 2010 [facility] [place] [facility] [address] [id number] [place] [address] 20 Mar, 2010 [facility] [place] [facility] [address] [id number] [place] [address] 14 Mar, 2010 [facility] [place] [facility] [address] [id number] [place] [address] 14 Mar, 2010 [facility] [place] [facility] [address] [id number] [place] [address] 13 Mar, 2010 [facility] [place] [facility] [address] [id number] [place] [address] 07 Mar, 2010 [facility] [place] [facility] [address] [facility] [id number] [place] [address] 02 Mar, 2010 [facility] [place] [facility] [address] [id number] [place] [address] Mar, [facility] [place] [facility] [address] [id number] [place] [address] 30 Feb, 2010 [facility] [place] [facility] [address] [id number] [place] [address] Feb, [facility] [place] [facility] [address] [id number] [place] [address] Feb, [facility] [place] [facility] [address] [id number] [place] [address] 17 Feb, 2010 [facility] [place] [facility] [address] [id number] [place] [address] 16 Feb, 2010 [facility] [place] [facility] [address] [id number] [place] [address] Feb, [facility] [place] [facility] [address] [id number] [place] [address] Feb, [facility] [place] [facility] [address] [id number] [place] [address] Feb, [facility] [place] [facility] [address] [id number] [place] [address] Jan, [facility] [place] [facility] [address] [id number] [place] [address] Jan, [facility] [place] [facility] [address] [id number] [place] [address] Jan, [facility] [place] [facility] [address] [id number] [place] [address] Jan, [facility] [place] [facility] [address] [id number] [place] [address] Mar, [facility] [place] [facility] [address] [id number] [place] [address] Mar, [facility] [place] [facility] [address] [address] [id number] [place] [address] Mar, [facility], [place] [id number], [place] [address] Mar, [facility], [place] [id number] [place] [address] Mar, [facility], [place] [id number] [place] [address] Mar, [facility], [place] [id number] [place] [address] Feb, [facility], [place] [id number] [place] [address] Feb, [facility], [place] [id number] [place] [address] Jan, [facility], [place] [id number] [place] [address] Sep, [facility], [place] [id number], [place] [address] May, IMMUNIZATIONS No Known Immunizations SOCIAL HISTORY Never Assessed REASON FOR VISIT New admission PLAN OF CARE Activity Details Follow Up prn Reason: VITAL SIGNS MEDICATIONS Medication Instructions Dosage Frequency Start Date End Date Duration Status Klonopin 0.5 MG Orally twice a day 1 tablet 12h Nov, 07 days Active Fluticasone Propionate 50 SPRAY 2 SPRAYS IN EACH NOSTRIL DAILY 90 Active Flaxseed Oil Max Str 1300 MG Orally daily 4-5 tabs 24h Active Zetia 10 TAKE 1 TABLET DAILY 90 Active Fenofibrate 54 MG orally once daily take 1 tablet (54 mg) by oral route once daily 24h 30 Active Enalapril Maleate 20 TAKE 1 TABLET BY MOUTH TWICE DAILY 30 Active Thioridazine HCl 100 mg Orally Once a day at hs 2 tablet Active Perphenazine-Amitriptyline 0 TAKE 6 TABLETS BY MOUTH DAILY 30 Active [place] 10-325 MG Orally every 6 hrs 1 tablet as needed 6h 31 Oct, 2017 Active Tizanidine HCl 4 MG Orally Three times a day 1 tablet as needed 8h 30 Active Amlodipine Besylate 10 TAKE 1 TABLET BY MOUTH ONCE DAILY 90 Active Coenzyme Q-10 100 mg Orally twice a day 1 capsule with a meal 12h Active Multivitamin/Minerals 27-1 MG Active Vitamin D 1000 UNIT Orally Once a day 1 capsule 24h Active Probiotic 250 MG Orally Once a day 1 capsule 24h Active Perphenazine-Amitriptyline 2-25 MG Orally at hs TAKE 6 TABLETS BY MOUTH DAILY Active RESULTS No Results PROCEDURES Procedure Date Ordered Result Body Site [facility] VISIT ESTABLISHED PATIENT Dec 16, 2017 INSTRUCTIONS MEDICATIONS ADMINISTERED No Known Medications MEDICAL (GENERAL) HISTORY Type Description Date Medical History Hypertension Medical History Hyperlipidemia Medical History chronic back pain since age 26 Medical History Anxiety Medical History Hx of Spontaneous Pneumothorax Surgical History right knee arthroscopy Surgical History colon resection Surgical History tonsillectomy Surgical History Left ear surgery Hospitalization History [facility] in [place]- Spontaneous Pneumothorax Hospitalization History [facility]- Colon resection Hospitalization History via [facility] - diarrhea/ couldnt urinate nov 2017
--- OUTSIDE RECORDS SUMMARY | 2018-10-15 01:33 | XMS REPORT ---
Author Author AGUSTÍN PRATER Organization [facility] Address [address] [place] [address] Care Team Providers Care Marketing Database Analyst Name Role Phone AGUSTÍN PRATER Unavailable PROBLEMS Type Condition ICD9-CM Code XHW21-ID Code Onset Dates Condition Status SNOMED Code Problem Anxiety F41.9 Active 94554745 Problem Chronic pain G89.29 Active 57197241 Problem Constipation K59.00 Active 31092234 Problem Insomnia G47.00 Active 918428248 Problem HTN (hypertension) I10 Active 46124795 Problem Chronic kidney disease, stage III (moderate) N18.3 Active 586114618 Problem Primary insomnia F51.01 Active 2695893 Problem Thoracic back pain, unspecified back pain laterality, unspecified chronicity M54.6 Active 815730442 Problem Hyperlipidemia E78.5 Active 75758983 Problem Environmental allergies Z91.09 Active 518581226 Problem Vitamin D deficiency E55.9 Active 90125474 ALLERGIES No Information ENCOUNTERS Encounter Location Date Diagnosis [facility] [id number] [place] [address] Dec, [facility] [id number] [place] [address] Dec, Anxiety F41.9 and Thoracic back pain, unspecified back pain laterality, unspecified chronicity M54.6 [facility] [id number] [place] [address] Dec, Anxiety F41.9 and Thoracic back pain, unspecified back pain laterality, unspecified chronicity M54.6 [facility] [address] [place] [id number] Dec, Diarrhea of presumed infectious origin R19.7 ; Anxiety F41.9 ; Thoracic back pain, unspecified back pain laterality, unspecified chronicity M54.6 and HTN (hypertension) I10 [place] [id number] [place] [address] Dec, Anxiety F41.9 [facility] [employer] [address] [place] [id number] Dec, Anxiety F41.9 ; Diarrhea of presumed infectious origin R19.7 ; Generalized abdominal pain R10.84 and Localized edema R60.0 [place] [address] [address] Nov, [facility] [facility] [employer] [address] [place] [id number] Nov, Anxiety F41.9 ; Urinary retention R33.9 ; Diarrhea of presumed infectious origin R19.7 ; Weakness R53.1 ; Acute kidney failure, unspecified N17.9 ; Chronic kidney disease, stage III (moderate) N18.3 and Thoracic back pain, unspecified back pain laterality, unspecified chronicity M54.6 [place] [id number] [place] [address] Oct, Thoracic back pain, unspecified back pain laterality, unspecified chronicity M54.6 and Anxiety F41.9 [place] [id number] [place] [address] Sep, Thoracic back pain, unspecified back pain laterality, unspecified chronicity M54.6 and Anxiety F41.9 [place] [id number] [place] [address] Sep, Thoracic back pain, unspecified back pain laterality, unspecified chronicity M54.6 ; Anxiety F41.9 and Encounter for medication monitoring Z51.81 [place] [id number] [place] [address] August, [place] [id number] [place] [address] August, Thoracic back pain, unspecified back pain laterality, unspecified chronicity M54.6 and Anxiety F41.9 [place] [address] [place] [address] August, Hyperlipidemia E78.5 and HTN (hypertension) I10 [facility] [id number] [place] [address] August, [facility] [id number] [place] [address] August, Medicare welcome exam Z00.00 ; Chronic kidney failure N18.9 ; Anxiety F41.9 ; Chronic pain G89.29 ; Insomnia G47.00 ; Hyperlipidemia E78.5 ; HTN (hypertension) I10 and Thoracic back pain, unspecified back pain laterality, unspecified chronicity M54.6 [place] [id number] [place] [address] Jul, [place] [id number] [place] [address] Jul, [place] [id number] [place] [address] Jul, [place] [id number] [place] [address] Jul, Anxiety F41.9 [place] [id number] [place] [address] Jul, Thoracic back pain, unspecified back pain laterality, unspecified chronicity M54.6 and Anxiety F41.9 [place] [id number] [place] [address] Jun, Thoracic back pain, unspecified back pain laterality, unspecified chronicity M54.6 and Anxiety F41.9 [place] [id number] [place] [address] May, Thoracic back pain, unspecified back pain laterality, unspecified chronicity M54.6 and Anxiety F41.9 [place] [id number] [place] [address] Apr, Thoracic back pain, unspecified back pain laterality, unspecified chronicity M54.6 and Anxiety F41.9 [place] [id number] [place] [address] Mar, [place] [id number] [place] [address] Mar, Thoracic back pain, unspecified back pain laterality, unspecified chronicity M54.6 and Anxiety F41.9 [place] [address] [address] Mar, Thoracic back pain, unspecified back pain laterality, unspecified chronicity M54.6 ; HTN (hypertension) I10 ; Hyperlipidemia E78.5 and Anxiety F41.9 [place] [id number] [place] [address] Feb, Thoracic back pain, unspecified back pain laterality, unspecified chronicity M54.6 and Anxiety F41.9 [place] [id number] [place] [address] Nov, [place] [id number] [place] [address] Oct, [place] [id number] [place] [address] Oct, Thoracic back pain, unspecified back pain laterality, unspecified chronicity M54.6 [place] [id number] [place] [address] Oct, HTN (hypertension) I10 ; Constipation K59.00 ; Hyperlipidemia E78.5 ; Thoracic back pain, unspecified back pain laterality, unspecified chronicity M54.6 ; Chronic pain G89.29 ; Anxiety F41.9 ; Chronic kidney failure N18.9 ; Environmental allergies Z91.09 ; Vitamin D deficiency E55.9 and Primary insomnia F51.01 [place] [id number] [place] [address] Sep, Anxiety F41.9 [place] [address] [address] Sep, [facility] [id number] [place] [address], [place] [address] August, Anxiety F41.9 [facility] [id number] [address] August, [facility] [id number] [place] [address], [place] [address] Jul, Anxiety F41.9 [facility] [id number] [place] [address], [place] [address] Jul, [facility] [id number] [place] [address], [place] [address] Jun, Anxiety F41.9 [facility] [id number] [place] [address], [place] [address] Jun, [facility] [place] [facility] [id number] [address] May, [facility] [id number] [address] May, [facility] [place] [facility] [address] [address] May, [facility] [id number] [address] Apr, [facility] [place] [facility] [address] [address] Apr, [facility] [address] [address] Apr, Anxiety F41.9 [facility] [place] [facility] [address] [address] Apr, Anxiety F41.9 [facility] [place] [facility] [address] [address] Apr, [facility] [id number] [place] [address] Mar, HTN (hypertension) I10 ; Tremor R25.1 ; Hypercholesterolemia E78.0 ; Constipation K59.00 ; Chronic pain G89.29 ; Hyperlipidemia E78.5 ; Insomnia G47.00 ; Anxiety F41.9 and Thoracic back pain, unspecified back pain laterality, unspecified chronicity M54.6 [facility] [id number] [place] [address] Mar, Tremor R25.1 ; HTN (hypertension) I10 ; Hypercholesterolemia E78.0 ; Constipation K59.00 ; Chronic pain G89.29 ; Hyperlipidemia E78.5 ; Insomnia G47.00 ; Anxiety F41.9 and Thoracic back pain, unspecified back pain laterality, unspecified chronicity M54.6 [facility] [id number] [place] [address] Mar, [facility] [id number] [place] [address] Mar, [facility] [id number] [place] [address] Feb, [facility] [id number] [place] [address] Jan, [facility] [id number] [place] [address] Jan, [facility] [id number] [place] [address] Dec, [facility] [id number] [place] [address] Nov, [facility] [id number] [place] [address] Nov, [facility] [id number] [place] [address] Oct, Anxiety F41.9 [facility] [address] [address] Oct, Chronic pain G89.29 [facility] [id number] [place] [address] Sep, [facility] [id number] [place] [address] Sep, [facility] [id number] [place] [address] Sep, [facility] [id number] [place] [address] Sep, [facility] [id number] [place] [address] Sep, Chronic pain syndrome G89.4 [facility] [id number] [place] [address] Sep, HTN (hypertension) I10 ; Chronic pain G89.29 ; Hypercholesterolemia E78.0 ; Chronic kidney failure N18.9 ; Constipation, unspecified constipation type K59.00 ; Anxiety F41.9 and Thoracic back pain, unspecified back pain laterality, unspecified chronicity M54.6 [facility] [id number] [place] [address] August, Chronic pain syndrome G89.4 [facility] [id number] [place] [address] August, Chronic pain syndrome G89.4 [facility] [id number] [place] [address] Jul, Anxiety disorder, unspecified F41.9 and Chronic pain syndrome G89.4 [facility] [id number] [place] [address] Jul, Insomnia, unspecified G47.00 and Chronic pain syndrome G89.4 [facility] [id number] [place] [address] Jul, Allergic rhinitis J30.9 [facility] [address] [address] Jul, Constipation, unspecified K59.00 [facility] [address] [address] Jul, [facility] [id number] [place] [address] Jun, [facility] [id number] [place] [address] Jun, [facility] [id number] [place] [address] Jun, [facility] [id number] [place] [address] Jun, [facility] [id number] [place] [address] Jun, [facility] [id number] [place] [address] Jun, [facility] [id number] [place] [address] May, [facility] [id number] [place] [address] May, [facility] [id number] [place] [address] May, Anxiety F41.9 ; Insomnia G47.00 ; Hyperlipidemia E78.5 ; Chronic pain G89.29 ; HTN (hypertension) I10 ; Environmental allergies V15.09 and Constipation 564.00 [facility] [address] [address] Apr, [facility] [address], [place] [address] Apr, [facility] [id number] [place] [address] Apr, [facility] [id number] [place] [address] Mar, [facility] [id number] [place] [address] Mar, [facility] [id number] [place] [address] Mar, [facility] [id number] [place] [address] Feb, [facility] [id number] [place] [address] Feb, [facility] [id number] [place] [address] Feb, [facility] [id number] [place] [address] Jan, HTN (hypertension) I10 ; Constipation K59.00 ; Chronic pain G89.29 ; Hyperlipidemia E78.5 ; Hypercholesterolemia E78.0 ; Insomnia G47.00 and Anxiety F41.9 [facility] [id number] [place] [address] Jan, [facility] [id number] [place] [address] Dec, [facility] [id number] [place] [address] Nov, [facility] [id number] [place] [address] Oct, Chronic kidney disease, unspecified 585.9 ; Chronic pain syndrome 338.4 ; Hyperlipidemia 272.4 and Essential hypertension 401.9 [facility] [id number] [place] [address] Oct, Chronic kidney disease 585.9 [facility] [id number] [place] [address] Oct, [facility] [address] [address] Oct, Chronic kidney disease, unspecified 585.9 ; Hypercalcemia 275.42 ; Hyperlipidemia 272.4 ; Essential hypertension 401.9 ; Chronic pain syndrome 338.4 ; Insomnia 780.52 ; Constipation 564.00 ; Environmental allergies V15.09 and Anxiety 300.00 [facility] [id number] [place] [address] Oct, Chronic kidney disease 585.9 [facility] [id number] [place] [address] Oct, [facility] [id number] [place] [address] Oct, Chronic kidney disease 585.9 and Hyperlipidemia 272.4 [facility] [id number] [place] [address] Oct, [facility] [id number] [place] [address] Oct, [facility] [id number] [place] [address] Sep, [facility] [address], [place] [address] Sep, [facility] [address], [place] [address] Sep, Chronic kidney disease 585.9 and Hyperlipidemia 272.4 [facility] [address], [place] [address] Sep, [facility] [id number] [place] [address] August, [facility] [address], [place] [address] August, [facility] [id number] [address] 14 Jul, 2014 [facility] [place] [facility] [address] [id number] [place] [address] Jul, [facility] [place] [facility] [address] [id number] [place] [address] Jun, [facility] [place] [facility] [address] [id number] [place] [address] Jun, [facility] [place] [facility] [address] [id number] [place] [address] Jun, [facility] [place] [facility] [address] [id number] [place] [address] Jun, [facility] [place] [facility] [address] [id number] [place] [address] Jun, [facility] [place] [facility] [address] [facility] [id number] [place] [address] Jun, [facility] [place] [facility] [address] [id number] [place] [address] Jun, [facility] [place] [facility] [address] [id number] [place] [address] Jun, [facility] [place] [facility] [address] [facility] [id number] [place] [address] May, [facility] [place] [facility] [address] [id number] [address] May, [facility] [place] [facility] [address] [id number] [address] May, [facility] [place] [facility] [address] [id number] [place] [address] May, [facility] [place] [facility] [address] [id number] [place] [address] Apr, [facility] [place] [facility] [address] [id number] [place] [address] Apr, [facility] [place] [facility] [address] [id number] [place] [address] Apr, [facility] [place] [facility] [address] [id number] [place] [address] Apr, [facility] [place] [facility] [address] [id number] [place] [address] Apr, [facility] [place] [facility] [address] [id number] [place] [address] Apr, [facility] [place] [facility] [address] [id number] [place] [address] Apr, [facility] [place] [facility] [address] [id number] [place] [address] Apr, [facility] [place] [facility] [address] [id number] [place] [address] Apr, [facility] [place] [facility] [address] [id number] [place] [address] Apr, [facility] [place] [facility] [address] [id number] [place] [address] Apr, [facility] [place] [facility] [address] [id number] [place] [address] Mar, [facility] [place] [facility] [address] [id number] [place] [address] Mar, [facility] [place] [facility] [address] [id number] [place] [address] Feb, [facility] [place] [facility] [address] [id number] [place] [address] Feb, [facility] [place] [facility] [address] [id number] [place] [address] Feb, [facility] [place] [facility] [address] [id number] [place] [address] Feb, [facility] [place] [facility] [address] [id number] [place] [address] Feb, [facility] [place] [facility] [address] [id number] [place] [address] Feb, [facility] [place] [facility] [address] [id number] [place] [address] Feb, [facility] [place] [facility] [address] [id number] [place] [address] Feb, [facility] [place] [facility] [address] [id number] [place] [address] Feb, [facility] [place] [facility] [address] [id number] [place] [address] Feb, [facility] [place] [facility] [address] [id number] [place] [address] Jan, [facility] [place] [facility] [address] [id number] [place] [address] Jan, [facility] [place] [facility] [address] [id number] [address] Jan, [facility] [place] [facility] [address] [id number], [place] [address] Jan, [facility] [place] [facility] [address] [id number], [place] [address] Jan, [facility] [place] [facility] [address] [id number], [place] [address] Jan, [facility] [place] [facility] [address] [id number], [place] [address] Jan, [facility] [place] [facility] [address] [id number], [place] [address] Jan, [facility] [place] [facility] [address] [id number], [place] [address] Jan, [facility] [place] [facility] [address] [id number], [place] [address] Jan, [facility] [place] [facility] [address] [id number] [place] [address] 06 Jan, 2014 [facility] [place] [facility] [address] [id number] [place] [address] Dec, 2013 [facility] [place] [facility] [address] [id number] [place] [address] Dec, 2013 [facility] [place] [facility] [address] [id number] [place] [address] Dec, 2013 [facility] [place] [facility] [address] [id number] [place] [address] Dec, 2013 [facility] [place] [facility] [address] [id number] [place] [address] 18 Dec, 2013 [facility] [place] [facility] [address] [id number] [place] [address] Dec, 2013 [facility] [place] [facility] [address] [id number] [place] [address] Dec, 2013 [facility] [place] [facility] [address] [id number] [place] [address] Dec, [facility] [place] [facility] [address] [id number] [place] [address] Nov, [facility] [place] [facility] [address] [id number] [place] [address] Nov, [facility] [place] [facility] [address] [id number] [place] [address] Nov, [facility] [place] [facility] [address] [id number] [place] [address] Nov, [facility] [place] [facility] [address] [id number] [place] [address] Nov, [facility] [place] [facility] [address] [id number] [place] [address] Nov, [facility] [place] [facility] [address] [id number] [place] [address] Nov, [facility] [place] [facility] [address] [id number] [place] [address] Nov, [facility] [place] [facility] [address] [id number] [place] [address] Oct, [facility] [place] [facility] [address] [id number] [place] [address] Oct, [facility] [place] [facility] [address] [id number] [place] [address] Oct, [facility] [place] [facility] [address] [id number] [place] [address] Oct, [facility] [place] [facility] [address] [id number] [place] [address] Sep, [facility] [place] [facility] [address] [id number] [place] [address] Sep, [facility] [place] [facility] [address] [id number] [place] [address] Sep, [facility] [place] [facility] [address] [id number] [place] [address] Sep, [facility] [place] [facility] [address] [id number] [place] [address] Sep, [facility] [place] [facility] [address] [id number] [place] [address] Sep, [facility] [place] [facility] [address] [id number] [place] [address] Sep, [facility] [place] [facility] [address] [id number] [place] [address] Sep, [facility] [place] [facility] [address] [id number] [place] [address] August, [facility] [place] [facility] [address] [id number] [place] [address] August, [facility] [place] [facility] [address] [id number] [place] [address] August, [facility] [place] [facility] [address] [id number] [place] [address] August, [facility] [place] [facility] [address] [id number] [place] [address] August, [facility] [place] [facility] [address] [id number] [place] [address] August, [facility] [place] [facility] [address] [id number] [place] [address] August, [facility] [place] [facility] [address] [id number] [place] [address] August, [facility] [place] [facility] [address] [id number] [place] [address] August, [facility] [place] [facility] [address] [id number] [place] [address] August, [facility] [place] [facility] [address] [id number] [place] [address] Jul, [facility] [place] [facility] [address] [id number] [place] [address] Jul, [facility] [place] [facility] [address] [id number] [place] [address] Jul, [facility] [place] [facility] [address] [id number] [place] [address] Jul, [facility] [place] [facility] [address] [id number] [place] [address] Jul, [facility] [place] [facility] [address] [id number] [place] [address] Jul, [facility] [place] [facility] [address] [id number] [place] [address] Jul, [facility] [place] [facility] [address] [id number] [place] [address] Jul, [facility] [place] [facility] [address] [id number] [place] [address] Jun, [facility] [place] [facility] [address] [id number] [place] [address] Jun, [facility] [place] [facility] [address] [id number] [place] [address] Jun, [facility] [place] [facility] [address] [id number] [place] [address] Jun, [facility] [place] [facility] [address] [id number] [place] [address] Jun, [facility] [place] [facility] [address] [id number] [place] [address] Jun, [facility] [place] [facility] [address] [id number] [place] [address] May, [facility] [place] [facility] [address] [id number] [place] [address] May, [facility] [place] [facility] [address] [id number] [place] [address] May, [facility] [place] [facility] [address] [id number] [place] [address] May, [facility] [place] [facility] [address] [id number] [place] [address] May, [facility] [place] [facility] [address] [id number] [place] [address] May, [facility] [place] [facility] [address] [id number] [place] [address] May, [facility] [place] [facility] [address] [id number] [place] [address] Apr, [facility] [place] [facility] [address] [id number] [place] [address] Apr, [facility] [place] [facility] [address] [id number] [place] [address] 14 Apr, 2013 [facility] [place] [facility] [address] [id number] [place] [address] 14 Apr, 2013 [facility] [place] [facility] [address] [id number] [place] [address] 10 Apr, 2013 [facility] [place] [facility] [address] [id number] [place] [address] Apr, [facility] [place] [facility] [address] [id number] [place] [address] 31 Mar, 2013 [facility] [place] [facility] [address] [id number] [place] [address] Mar, [facility] [place] [facility] [address] [id number] [place] [address] Mar, [facility] [place] [facility] [address] [id number] [place] [address] Mar, [facility] [place] [facility] [address] [id number] [place] [address] Mar, [facility] [place] [facility] [address] [id number] [place] [address] Mar, [facility] [place] [facility] [address] [id number] [place] [address] 16 Mar, 2013 [facility] [place] [facility] [address] [id number] [place] [address] 16 Mar, 2013 [facility] [place] [facility] [address] [id number] [place] [address] Mar, [facility] [place] [facility] [address] [id number] [place] [address] Mar, [facility] [place] [facility] [address] [id number] [place] [address] Feb, [facility] [place] [facility] [address] [id number] [place] [address] Feb, [facility] [place] [facility] [address] [id number] [place] [address] Feb, [facility] [address] [id number] [place] [address] Feb, [facility] [place] [facility] [address] [id number] [place] [address] Feb, [facility] [address] [id number] [place] [address] 14 Feb, 2013 [facility] [place] [facility] [address] [id number] [place] [address] Feb, [facility] [place] [facility] [address] [id number] [place] [address] Feb, [facility] [place] [facility] [address] [id number] [place] [address] Feb, [facility] [place] [facility] [address] [id number] [place] [address] Feb, [facility] [address] [id number] [place] [address] Jan, [facility] [place] [facility] [address] [id number] [place] [address] Jan, [facility] [address] [id number] [place] [address] Jan, [facility] [place] [facility] [address] [id number] [place] [address] Jan, [facility] [place] [facility] [address] [id number] [place] [address] Jan, [facility] [place] [facility] [address] [id number] [place] [address] Jan, [facility] [place] [facility] [address] [id number] [place] [address] 17 Jan, 2013 [facility] [place] [facility] [address] [id number] [place] [address] Jan, [facility] [place] [facility] [address] [id number] [place] [address] Jan, [facility] [place] [facility] [address] [id number] [place] [address] Dec, [facility] [place] [facility] [address] [id number] [place] [address] Dec, [facility] [place] [facility] [address] [id number] [place] [address] Dec, [facility] [place] [facility] [address] [id number] [place] [address] Dec, [facility] [place] [facility] [address] [id number] [place] [address] Nov, [facility] [place] [facility] [address] [id number] [place] [address] Nov, [facility] [place] [facility] [address] [id number] [place] [address] Nov, [facility] [place] [facility] [address] [id number] [place] [address] Nov, [facility] [place] [facility] [address] [id number] [place] [address] Nov, [facility] [place] [facility] [address] [id number] [place] [address] Nov, [facility] [place] [facility] [address] [id number] [address] Oct, [facility] [place] [facility] [address] [id number] [place] [address] Oct, [facility] [place] [facility] [address] [id number] [place] [address] Oct, [facility] [place] [facility] [address] [id number], [place] [address] Oct, [facility] [place] [facility] [address] [id number], [place] [address] 27 Sep, 2012 [facility] [address] [id number] [place] [address] 19 Sep, 2012 [facility] [address] [id number] [place] [address] 17 Sep, 2012 [facility] [address] [id number] [place] [address] 14 Sep, 2012 [facility] [address] [id number] [place] [address] 10 Sep, 2012 [facility] [address] [id number] [place] [address] August, [facility] [address] [id number] [place] [address] 2012 [facility] [address] [id number] [place] [address] Jul, [facility] [address] [id number] [place] [address] 19 Jul, 2012 [facility] [address] [id number] [place] [address] 15 Jul, 2012 [facility] [address] [facility] [id number] [place] [address] 09 Jul, 2012 [facility] [address] [id number] [place] [address] 08 Jul, 2012 [facility] [address] [id number], [place] [address] 26 Jun, 2012 [facility] [address] [id number] [place] [address] 20 Jun, 2012 [facility] [place] [facility] [address] [id number] [place] [address] 15 Jun, 2012 [facility] [address] [facility] [id number] [place] [address] 06 Jun, 2012 [facility] [place] [facility] [address] [id number] [place] [address] Jun, [facility] [place] [facility] [address] [id number] [place] [address] May, [facility] [place] [facility] [address] [id number] [place] [address] May, [facility] [place] [facility] [address] [id number] [place] [address] May, [facility] [place] [facility] [address] [id number] [place] [address] May, [facility] [place] [facility] [address] [id number] [place] [address] May, [facility] [place] [facility] [address] [id number] [place] [address] May, [facility] [place] [facility] [address] [id number] [place] [address] May, [facility] [place] [facility] [address] [id number] [place] [address] May, [facility] [place] [facility] [address] [id number] [place] [address] May, [facility] [place] [facility] [address] [id number] [place] [address] Apr, [facility] [place] [facility] [address] [id number] [place] [address] Apr, [facility] [place] [facility] [address] [id number] [place] [address] Apr, [facility] [place] [facility] [address] [id number] [place] [address] Apr, [facility] [place] [facility] [address] [id number] [place] [address] Apr, [facility] [place] [facility] [address] [id number] [place] [address] Mar, [facility] [place] [facility] [address] [id number] [place] [address] Mar, [facility] [place] [facility] [address] [id number] [place] [address] Mar, [facility] [place] [facility] [address] [id number] [place] [address] Mar, [facility] [place] [facility] [address] [id number] [place] [address] Mar, [facility] [place] [facility] [address] [id number] [place] [address] Mar, [facility] [place] [facility] [address] [id number] [place] [address] Mar, [facility] [address] [id number] [place] [address] Mar, [facility] [place] [facility] [address] [id number] [place] [address] Mar, [facility] [place] [facility] [address] [id number] [place] [address] Mar, [facility] [place] [facility] [address] [id number] [place] [address] Feb, [facility] [place] [facility] [address] [id number] [place] [address] 30 Feb, 2012 [facility] [place] [facility] [address] [id number] [place] [address] Feb, [facility] [place] [facility] [address] [id number] [place] [address] Feb, [facility] [place] [facility] [address] [id number] [place] [address] Feb, [facility] [place] [facility] [address] [id number] [place] [address] Feb, [facility] [place] [facility] [address] [id number] [place] [address] 20 Feb, 2012 [facility] [place] [facility] [address] [id number] [place] [address] 20 Feb, 2012 [facility] [place] [facility] [address] [id number] [place] [address] 16 Feb, 2012 [facility] [place] [facility] [address] [id number] [place] [address] 16 Feb, 2012 [facility] [place] [facility] [address] [id number] [place] [address] Feb, [facility] [place] [facility] [address] [id number] [place] [address] 13 Feb, 2012 [facility] [place] [facility] [address] [id number] [place] [address] Feb, [facility] [place] [facility] [address] [id number] [place] [address] Feb, [facility] [place] [facility] [address] [id number] [place] [address] Feb, [facility] [place] [facility] [address] [id number] [place] [address] Feb, [facility] [place] [facility] [address] [id number] [place] [address] Feb, [facility] [place] [facility] [address] [id number] [place] [address] Feb, [facility] [place] [facility] [address] [id number] [place] [address] Jan, [facility] [place] [facility] [address] [id number] [place] [address] Jan, [facility] [place] [facility] [address] [id number] [place] [address] Jan, [facility] [place] [facility] [address] [id number] [place] [address] Jan, [facility] [place] [facility] [address] [id number] [place] [address] Jan, [facility] [place] [facility] [address] [id number] [place] [address] Jan, [facility] [place] [facility] [address] [id number] [place] [address] Jan, [facility] [place] [facility] [address] [id number] [place] [address] Jan, [facility] [place] [facility] [address] [id number] [place] [address] Jan, [facility] [place] [facility] [address] [id number] [place] [address] Jan, [facility] [place] [facility] [address] [id number] [place] [address] Dec, [facility] [place] [facility] [address] [id number] [address] 18 Dec, 2011 [facility] [place] [facility] [address] [id number] [place] [address] Dec, [facility] [place] [facility] [address] [id number] [place] [address] Dec, [facility] [place] [facility] [address] [id number], [place] [address] Nov, [facility] [place] [facility] [address] [id number], [place] [address] Nov, [facility] [place] [facility] [address] [id number] [place] [address] Nov, [facility] [place] [facility] [address] [id number], [place] [address] Nov, [facility] [place] [facility] [address] [id number] [place] [address] Nov, [facility] [place] [facility] [address] [id number] [place] [address] Nov, [facility] [place] [facility] [address] [id number] [place] [address] Oct, [facility] [place] [facility] [address] [id number] [place] [address] Oct, [facility] [place] [facility] [address] [id number] [place] [address] Oct, [facility] [place] [facility] [address] [id number] [place] [address] Oct, [facility] [place] [facility] [address] [id number] [place] [address] Oct, [facility] [place] [facility] [address] [id number] [place] [address] Sep, [facility] [place] [facility] [address] [id number] [place] [address] Sep, [facility] [place] [facility] [address] [id number] [place] [address] Sep, [facility] [place] [facility] [address] [id number] [place] [address] Sep, [facility] [place] [facility] [address] [id number] [place] [address] Sep, [facility] [place] [facility] [address] [id number] [place] [address] August, [facility] [place] [facility] [address] [id number] [place] [address] August, [facility] [place] [facility] [address] [id number] [place] [address] August, [facility] [place] [facility] [address] [id number] [place] [address] August, [facility] [place] [facility] [address] [id number] [place] [address] Jul, [facility] [place] [facility] [address] [id number] [place] [address] 24 Jul, 2011 [facility] [address] [id number] [place] [address] Jul, [facility] [address] [id number] [place] [address] Jul, [facility] [place] [facility] [address] [id number] [place] [address] Jul, [facility] [address] [id number] [place] [address] Jul, [facility] [address] [id number] [place] [address] Jul, [facility] [address] [id number] [place] [address] Jul, [facility] [address] [id number] [place] [address] Jul, [facility] [address] [id number] [place] [address] Jul, [facility] [address] [id number] [place] [address] 05 Jul, 2011 [facility] [place] [facility] [address] [id number] [place] [address] Jul, [facility] [place] [facility] [address] [id number] [place] [address] Jul, [facility] [place] [facility] [address] [id number] [place] [address] Jul, [facility] [place] [facility] [address] [id number] [place] [address] Jun, [facility] [place] [facility] [address] [id number] [place] [address] Jun, [facility] [place] [facility] [address] [id number], [place] [address] Jun, [facility] [address] [id number] [place] [address] Jun, [facility] [address] [id number] [place] [address] 27 May, 2011 [facility] [address] [id number] [place] [address] 16 May, 2011 [facility] [address] [id number] [place] [address] May, [facility] [address] [id number] [place] [address] Apr, [facility] [address] [id number] [place] [address] Apr, [facility] [address] [facility] [id number] [place] [address] Apr, [facility] [address] [id number] [place] [address] Apr, [facility] [address] [facility] [id number] [place] [address] Apr, [facility] [address] [facility] [id number] [place] [address] Mar, [facility] [address] [id number] [place] [address] Mar, [facility] [address] [id number] [address] Mar, [facility] [address] [id number] [place] [address] Mar, [facility] [place] [facility] [address] [id number] [place] [address] 16 Mar, 2011 [facility] [address] [facility] [id number] [place] [address] Mar, [facility] [place] [facility] [address] [id number] [place] [address] 05 Mar, 2011 [facility] [place] [facility] [address] [id number] [place] [address] 29 Feb, 2011 [facility] [place] [facility] [address] [id number] [place] [address] Feb, [facility] [place] [facility] [address] [id number] [place] [address] Feb, [facility] [place] [facility] [address] [id number] [place] [address] Feb, [facility] [place] [facility] [address] [id number] [place] [address] 16 Feb, 2011 [facility] [place] [facility] [address] [id number] [place] [address] 14 Feb, 2011 [facility] [place] [facility] [address] [id number] [place] [address] 10 Feb, 2011 [facility] [place] [facility] [address] [id number] [place] [address] 31 Jan, 2011 [facility] [place] [facility] [address] [id number] [place] [address] 31 Jan, 2011 [facility] [place] [facility] [address] [id number] [place] [address] 31 Jan, 2011 [facility] [place] [facility] [address] [id number] [place] [address] 18 Jan, 2011 [facility] [place] [facility] [address] [id number] [place] [address] 17 Jan, 2011 [facility] [place] [facility] [address] [id number] [place] [address] 17 Jan, 2011 [facility] [place] [facility] [address] [id number] [place] [address] Jun, [facility] [place] [facility] [address] [id number] [place] [address] 30 Mar, 2010 [facility] [place] [facility] [address] [id number] [place] [address] 20 Mar, 2010 [facility] [place] [facility] [address] [id number] [place] [address] 14 Mar, 2010 [facility] [place] [facility] [address] [id number] [place] [address] 14 Mar, 2010 [facility] [place] [facility] [address] [id number] [place] [address] 13 Mar, 2010 [facility] [place] [facility] [address] [id number] [place] [address] 07 Mar, 2010 [facility] [place] [facility] [address] [id number] [place] [address] 02 Mar, 2010 [facility] [place] [facility] [address] [id number] [place] [address] Mar, [facility] [place] [facility] [address] [id number] [place] [address] 30 Feb, 2010 [facility] [place] [facility] [address] [id number] [place] [address] 29 Feb, 2010 [facility] [place] [facility] [address] [id number] [place] [address] 17 Feb, 2010 [facility] [place] [facility] [address] [id number], [place] [address] 17 Feb, 2010 [facility] [place] [facility] [address] [id number], [place] [address] 16 Feb, 2010 [facility] [place] [facility] [address] [id number] [place] [address] 08 Feb, 2010 [facility] [place] [facility] [address] [id number], [place] [address] 04 Feb, 2010 [facility] [place] [facility] [address] [facility] [id number], [place] [address] Feb, [facility] [place] [facility] [address] [facility] [id number], [place] [address] 28 Jan, 2010 [facility] [address] [facility] [id number], [place] [address] Jan, [facility] [address] [facility] [id number], [place] [address] 25 Jan, 2010 [facility] [address] [facility] [id number], [place] [address] Jan, [facility] [address] [facility] [id number], [place] [address] 29 Mar, 2009 [facility] [id number] [place] [address] Mar, [facility] [address] [facility] [id number], [place] [address] Mar, [facility] [id number] [address] Mar, [facility] [id number] [address] 14 Mar, 2009 [facility] [id number], [place] [address] Mar, [facility] [id number], [place] [address] Feb, [facility] [id number], [place] [address] Feb, [facility] [address] [id number], [place] [address] 13 Jan, 2009 [facility] [id number], [place] [address] Sep, [facility] [id number], [place] [address] May, IMMUNIZATIONS No Known Immunizations SOCIAL HISTORY Never Assessed REASON FOR VISIT controlled med refill PLAN OF CARE VITAL SIGNS MEDICATIONS Medication Instructions Dosage Frequency Start Date End Date Duration Status Alprazolam 2 MG Orally 4 times a day as needed take 0.5 tablet 28 days Active [place] 10-325 MG Orally every 6 hrs 1 tablet as needed 6h Oct, Active Soma 350 MG Orally Four times a day 1 tablet as needed 6h Active RESULTS No Results PROCEDURES No Known procedures INSTRUCTIONS MEDICATIONS ADMINISTERED No Known Medications MEDICAL (GENERAL) HISTORY Type Description Date Medical History Hypertension Medical History Hyperlipidemia Medical History chronic back pain since age 26 Medical History Anxiety Medical History Hx of Spontaneous Pneumothorax Surgical History right knee arthroscopy Surgical History colon resection Surgical History tonsillectomy Surgical History Left ear surgery Hospitalization History [facility]- Spontaneous Pneumothorax Hospitalization History [facility]- Colon resection
--- OUTSIDE RECORDS SUMMARY | 2018-10-15 01:34 | XMS REPORT ---
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 Role Phone AGUSTÍN PRATER Unavailable PROBLEMS Type Condition ICD9-CM Code LJM29-FZ Code Onset Dates Condition Status SNOMED Code Problem Constipation K59.00 Active 38078813 Problem Hyperlipidemia E78.5 Active 95841026 Problem Chronic pain G89.29 Active 82438972 Problem Insomnia G47.00 Active 178894700 Problem HTN (hypertension) I10 Active 14580124 Problem Anxiety F41.9 Active 53647599 Problem Chronic kidney disease, stage III (moderate) N18.3 Active 208086778 Problem Primary insomnia F51.01 Active 9599944 Problem Thoracic back pain, unspecified back pain laterality, unspecified chronicity M54.6 Active 234919257 Problem Chronic kidney failure N18.9 Active 786432572 Problem Environmental allergies Z91.09 Active 792480937 Problem Vitamin D deficiency E55.9 Active 43719680 ALLERGIES No Information ENCOUNTERS Encounter Location Date Diagnosis [facility] [id number] [address] Nov, Via [facility] [address] [place], [place] [id number] Nov, Anxiety F41.9 ; Urinary retention R33.9 ; Diarrhea of presumed infectious origin R19.7 ; Weakness R53.1 ; Acute kidney failure, unspecified N17.9 ; Chronic kidney disease, stage III (moderate) N18.3 and Thoracic back pain, unspecified back pain laterality, unspecified chronicity M54.6 [facility] [id number] [address] Oct, Thoracic back pain, unspecified back pain laterality, unspecified chronicity M54.6 and Anxiety F41.9 [facility] [id number] [place] [address] Sep, Thoracic back pain, unspecified back pain laterality, unspecified chronicity M54.6 and Anxiety F41.9 [place] [id number] [place] [address] Sep, Thoracic back pain, unspecified back pain laterality, unspecified chronicity M54.6 ; Anxiety F41.9 and Encounter for medication monitoring Z51.81 [place] [id number] [place] [address] August, [address] [address] [address] August, Thoracic back pain, unspecified back pain laterality, unspecified chronicity M54.6 and Anxiety F41.9 [place] [id number] [place] [address] August, Hyperlipidemia E78.5 and HTN (hypertension) I10 [place] [id number] [place] [address] August, [place] [id number] [place] [address] August, Medicare welcome exam Z00.00 ; Chronic kidney failure N18.9 ; Anxiety F41.9 ; Chronic pain G89.29 ; Insomnia G47.00 ; Hyperlipidemia E78.5 ; HTN (hypertension) I10 and Thoracic back pain, unspecified back pain laterality, unspecified chronicity M54.6 [place] [id number] [place] [address] Jul, [place] [id number] [place] [address] Jul, [place] [id number] [place] [address] Jul, [place] [id number] [place] [address] Jul, Anxiety F41.9 [place] [id number] [place] [address] Jul, Thoracic back pain, unspecified back pain laterality, unspecified chronicity M54.6 and Anxiety F41.9 [place] [id number] [place] [address] Jun, Thoracic back pain, unspecified back pain laterality, unspecified chronicity M54.6 and Anxiety F41.9 [place] [id number] [place] [address] May, Thoracic back pain, unspecified back pain laterality, unspecified chronicity M54.6 and Anxiety F41.9 [place] [id number] [place] [address] Apr, Thoracic back pain, unspecified back pain laterality, unspecified chronicity M54.6 and Anxiety F41.9 [place] [id number] [place] [address] Mar, [place] [id number] [place] [address] Mar, Thoracic back pain, unspecified back pain laterality, unspecified chronicity M54.6 and Anxiety F41.9 [place] [id number] [place] [address] Mar, Thoracic back pain, unspecified back pain laterality, unspecified chronicity M54.6 ; HTN (hypertension) I10 ; Hyperlipidemia E78.5 and Anxiety F41.9 [address] [place] [id number] [place] [address] Feb, Thoracic back pain, unspecified back pain laterality, unspecified chronicity M54.6 and Anxiety F41.9 [place] [id number] [place] [address] Nov, [address] [place] [address] [address] Oct, [facility] [id number] [place] [address] Oct, Thoracic back pain, unspecified back pain laterality, unspecified chronicity M54.6 [facility] [id number] [place] [address] Oct, HTN (hypertension) I10 ; Constipation K59.00 ; Hyperlipidemia E78.5 ; Thoracic back pain, unspecified back pain laterality, unspecified chronicity M54.6 ; Chronic pain G89.29 ; Anxiety F41.9 ; Chronic kidney failure N18.9 ; Environmental allergies Z91.09 ; Vitamin D deficiency E55.9 and Primary insomnia F51.01 [facility] [id number] [place] [address] Sep, Anxiety F41.9 [facility] [address] [address] Sep, [facility] [id number] [place] [address] August, Anxiety F41.9 [facility] [address] [address] August, [facility] [id number] [place] [address] Jul, Anxiety F41.9 [facility] [address] [address] Jul, [facility] [id number] [place] [address] Jun, Anxiety F41.9 [facility] [address] [address] Jun, [facility] [id number] [place] [address] May, [facility] [address] [address] May, [facility] [address] [address] May, [facility] [id number] [place] [address] Apr, [facility] [id number] [place] [address] Apr, [facility] [id number] [place] [address] Apr, Anxiety F41.9 [facility] [id number] [place] [address] Apr, Anxiety F41.9 [facility] [id number] [place] [address] Apr, [facility] [id number] [place] [address] Mar, HTN (hypertension) I10 ; Tremor R25.1 ; Hypercholesterolemia E78.0 ; Constipation K59.00 ; Chronic pain G89.29 ; Hyperlipidemia E78.5 ; Insomnia G47.00 ; Anxiety F41.9 and Thoracic back pain, unspecified back pain laterality, unspecified chronicity M54.6 [facility] [id number] [place] [address] Mar, Tremor R25.1 ; HTN (hypertension) I10 ; Hypercholesterolemia E78.0 ; Constipation K59.00 ; Chronic pain G89.29 ; Hyperlipidemia E78.5 ; Insomnia G47.00 ; Anxiety F41.9 and Thoracic back pain, unspecified back pain laterality, unspecified chronicity M54.6 [facility] [address] [address] Mar, [facility] [address] [address] Mar, [facility] [id number] [place] [address] Feb, [facility] [address] [address] Jan, [facility] [address] [address] Jan, [facility] [address] [address] Dec, [facility] [id number] [place] [address] Nov, [facility] [id number] [place] [address] Nov, [facility] [address] [place] [address] Oct, Anxiety F41.9 [facility] [address] [place] [address] Oct, Chronic pain G89.29 [facility] [address] [address] Sep, [facility] [id number] [place] [address] Sep, [facility] [address] [address] Sep, [facility] [address] [address] Sep, [facility] [address] [address] Sep, Chronic pain syndrome G89.4 [facility] [address] [address] Sep, HTN (hypertension) I10 ; Chronic pain G89.29 ; Hypercholesterolemia E78.0 ; Chronic kidney failure N18.9 ; Constipation, unspecified constipation type K59.00 ; Anxiety F41.9 and Thoracic back pain, unspecified back pain laterality, unspecified chronicity M54.6 [facility] [id number] [place] [address] August, Chronic pain syndrome G89.4 [facility] [id number] [place] [address] August, Chronic pain syndrome G89.4 [facility] [id number] [place] [address] Jul, Anxiety disorder, unspecified F41.9 and Chronic pain syndrome G89.4 [facility] [id number] [place] [address] Jul, Insomnia, unspecified G47.00 and Chronic pain syndrome G89.4 [facility] [id number] [place] [address] Jul, Allergic rhinitis J30.9 [facility] [id number] [place] [address] Jul, Constipation, unspecified K59.00 [facility] [id number] [place] [address] Jul, [facility] [id number] [place] [address] Jun, [facility] [id number] [place] [address] Jun, [facility] [id number] [place] [address] Jun, [facility] [id number] [place] [address] Jun, [facility] [id number] [place] [address] Jun, [facility] [id number] [place] [address] Jun, [facility] [id number] [address] 04 May, 2015 [facility] [id number] [place] [address] May, [facility] [id number] [place] [address] May, Anxiety F41.9 ; Insomnia G47.00 ; Hyperlipidemia E78.5 ; Chronic pain G89.29 ; HTN (hypertension) I10 ; Environmental allergies V15.09 and Constipation 564.00 [facility] [address] [address] Apr, [facility] [id number] [place] [address] Apr, [facility] [id number] [place] [address] Apr, [facility] [id number] [place] [address] Mar, [facility] [id number] [place] [address] Mar, [facility] [id number] [place] [address] Mar, [facility] [id number] [place] [address] Feb, [facility] [address] [place] [address] Feb, [facility] [address] [address] Feb, [facility] [id number] [place] [address] Jan, HTN (hypertension) I10 ; Constipation K59.00 ; Chronic pain G89.29 ; Hyperlipidemia E78.5 ; Hypercholesterolemia E78.0 ; Insomnia G47.00 and Anxiety F41.9 [facility] [address] [address] Jan, [facility] [address] [address] Dec, [facility] [address] [address] Nov, [facility] [id number] [place] [address] Oct, Chronic kidney disease, unspecified 585.9 ; Chronic pain syndrome 338.4 ; Hyperlipidemia 272.4 and Essential hypertension 401.9 [facility] [id number] [place] [address] Oct, Chronic kidney disease 585.9 [facility] [id number] [place] [address] Oct, [facility] [id number] [place] [address] Oct, Chronic kidney disease, unspecified 585.9 ; Hypercalcemia 275.42 ; Hyperlipidemia 272.4 ; Essential hypertension 401.9 ; Chronic pain syndrome 338.4 ; Insomnia 780.52 ; Constipation 564.00 ; Environmental allergies V15.09 and Anxiety 300.00 [facility] [address] [address] Oct, Chronic kidney disease 585.9 [facility] [address] [address] Oct, [facility] [address] [address] Oct, Chronic kidney disease 585.9 and Hyperlipidemia 272.4 [facility] [address] [place] [address] Oct, [facility] [address] [address] Oct, [facility] [id number] [place] [address] 18 Sep, 2014 [facility] [address] [facility] [id number] [place] [address] Sep, [facility] [place] [facility] [address] [facility] [id number] [place] [address] 15 Sep, 2014 Chronic kidney disease 585.9 and Hyperlipidemia 272.4 [facility] [place] [facility] [address] [facility] [id number] [place] [address], [place] [address] Sep, [facility] [address] [facility] [id number] [place] [address] August, [facility] [address] [facility] [id number] [place] [address] August, [facility] [id number] [place] [address] Jul, [facility] [id number] [place] [address] Jul, [facility] [id number] [place] [address] Jun, [facility] [id number] [place] [address] Jun, [facility] [place] [facility] [id number] [place] [address] 16 Jun, 2014 [facility] [place] [facility] [address] [facility] [id number] [address] Jun, [facility] [place] [facility] [address] [facility] [id number] [place] [address] Jun, [facility] [place] [facility] [address] [facility] [id number] [place] [address] Jun, [facility] [place] [facility] [address] [facility] [id number] [place] [address] Jun, [facility] [place] [facility] [id number] [address] Jun, [facility] [place] [facility] [address] [id number] [place] [address] May, [facility] [place] [facility] [address] [id number] [place] [address] May, [facility] [place] [facility] [address] [id number] [place] [address] May, [facility] [place] [facility] [address] [id number] [place] [address] May, [facility] [place] [facility] [address] [id number] [place] [address] Apr, [facility] [place] [facility] [address] [id number] [place] [address] Apr, [facility] [place] [facility] [address] [id number] [place] [address] Apr, [facility] [place] [facility] [address] [id number] [place] [address] Apr, [facility] [place] [facility] [address] [id number] [place] [address] Apr, [facility] [place] [facility] [address] [id number] [place] [address] Apr, [facility] [place] [facility] [address] [id number] [place] [address] Apr, [facility] [place] [facility] [address] [id number] [address] Apr, [facility] [place] [facility] [address] [id number] [place] [address] Apr, [facility] [place] [facility] [address] [id number] [place] [address] Apr, [facility] [place] [facility] [address] [id number] [place] [address] Apr, [facility] [place] [facility] [address] [id number] [place] [address] Mar, [facility] [place] [facility] [address] [id number] [place] [address] Mar, [facility] [place] [facility] [address] [id number] [place] [address] Feb, [facility] [place] [facility] [address] [id number] [place] [address] Feb, [facility] [place] [facility] [address] [id number] [place] [address] Feb, [facility] [place] [facility] [address] [id number] [place] [address] Feb, [facility] [place] [facility] [address] [id number] [place] [address] Feb, [facility] [place] [facility] [address] [id number] [place] [address] Feb, [facility] [place] [facility] [address] [id number] [place] [address] Feb, [facility] [place] [facility] [address] [id number] [place] [address] Feb, [facility] [place] [facility] [address] [id number] [place] [address] Feb, [facility] [place] [facility] [address] [id number] [place] [address] Feb, [facility] [place] [facility] [address] [id number] [place] [address] Jan, [facility] [place] [facility] [address] [id number] [place] [address] Jan, [facility] [place] [facility] [address] [id number] [place] [address] Jan, [facility] [place] [facility] [address] [id number] [place] [address] Jan, [facility] [place] [facility] [address] [id number] [place] [address] Jan, [facility] [place] [facility] [address] [id number] [place] [address] Jan, [facility] [place] [facility] [address] [id number] [place] [address] Jan, [facility] [place] [facility] [address] [id number] [place] [address] Jan, [facility] [place] [facility] [address] [id number] [place] [address] 16 Jan, 2014 [facility] [place] [facility] [address] [id number] [place] [address] Jan, [facility] [place] [facility] [address] [id number] [place] [address] Jan, [facility] [place] [facility] [address] [id number] [place] [address] 26 Dec, 2013 [facility] [place] [facility] [address] [id number] [place] [address] 26 Dec, 2013 [facility] [place] [facility] [address] [id number] [place] [address] 19 Dec, 2013 [facility] [place] [facility] [address] [id number] [place] [address] 19 Dec, 2013 [facility] [place] [facility] [address] [id number] [place] [address] 18 Dec, 2013 [facility] [place] [facility] [address] [id number] [place] [address] 18 Dec, 2013 [facility] [place] [facility] [address] [id number] [place] [address] 03 Dec, 2013 [facility] [place] [facility] [address] [id number] [place] [address] 03 Dec, 2013 [facility] [place] [facility] [address] [id number] [place] [address] Nov, [facility] [place] [facility] [address] [id number] [place] [address] Nov, [facility] [place] [facility] [address] [id number] [place] [address] Nov, [facility] [place] [facility] [address] [id number] [place] [address] Nov, [facility] [place] [facility] [address] [id number] [place] [address] Nov, [facility] [place] [facility] [address] [id number] [place] [address] Nov, [facility] [place] [facility] [address] [id number] [place] [address] Nov, [facility] [place] [facility] [address] [id number] [place] [address] Nov, [facility] [place] [facility] [address] [id number] [place] [address] Oct, [facility] [place] [facility] [address] [id number] [place] [address] Oct, [facility] [place] [facility] [address] [id number] [place] [address] Oct, [facility] [place] [facility] [address] [id number] [place] [address] Oct, [facility] [place] [facility] [address] [id number] [place] [address] Sep, [facility] [place] [facility] [address] [id number] [place] [address] Sep, [facility] [place] [facility] [address] [id number] [place] [address] Sep, [facility] [place] [facility] [address] [id number] [place] [address] Sep, [facility] [place] [facility] [address] [id number] [place] [address] Sep, [facility] [place] [facility] [address] [id number] [place] [address] Sep, [facility] [place] [facility] [address] [id number] [place] [address] Sep, [facility] [place] [facility] [address] [id number] [place] [address] Sep, [facility] [place] [facility] [address] [id number] [place] [address] August, [facility] [place] [facility] [address] [id number] [place] [address] August, [facility] [place] [facility] [address] [id number] [place] [address] August, [facility] [place] [facility] [address] [id number] [place] [address] August, [facility] [place] [facility] [address] [id number] [place] [address] August, [facility] [place] [facility] [address] [id number] [place] [address] August, [facility] [place] [facility] [address] [id number] [place] [address] August, [facility] [place] [facility] [address] [id number] [place] [address] August, [facility] [place] [facility] [address] [id number] [place] [address] August, [facility] [place] [facility] [address] [address] [id number] [place] [address] August, [facility] [place] [facility] [address] [id number] [place] [address] Jul, [facility] [place] [facility] [address] [id number] [place] [address] Jul, [facility] [place] [facility] [address] [id number] [place] [address] Jul, [facility] [place] [facility] [address] [id number] [place] [address] Jul, [facility] [place] [facility] [address] [id number] [place] [address] Jul, [facility] [place] [facility] [address] [id number] [place] [address] Jul, [facility] [place] [facility] [address] [id number] [place] [address] Jul, [facility] [place] [facility] [address] [id number] [place] [address] Jul, [facility] [place] [facility] [address] [id number] [place] [address] Jun, [facility] [place] [facility] [address] [id number] [place] [address] Jun, [facility] [place] [facility] [address] [id number] [place] [address] Jun, [facility] [place] [facility] [address] [id number] [place] [address] Jun, [facility] [place] [facility] [address] [id number] [place] [address] Jun, [facility] [place] [facility] [address] [id number] [place] [address] Jun, [facility] [place] [facility] [address] [id number] [place] [address] May, [facility] [place] [facility] [address] [id number] [place] [address] May, [facility] [place] [facility] [address] [id number] [place] [address] May, [facility] [place] [facility] [address] [id number] [place] [address] May, [facility] [place] [facility] [address] [id number] [place] [address] May, [facility] [place] [facility] [address] [id number] [place] [address] May, [facility] [place] [facility] [address] [id number] [place] [address] May, [facility] [place] [facility] [address] [id number] [place] [address] Apr, [facility] [place] [facility] [address] [id number] [place] [address] Apr, [facility] [place] [facility] [address] [id number] [place] [address] Apr, [facility] [place] [facility] [address] [id number] [place] [address] Apr, [facility] [place] [facility] [address] [id number] [place] [address] Apr, [facility] [place] [facility] [address] [id number] [place] [address] Apr, [facility] [place] [facility] [address] [id number] [place] [address] Mar, [facility] [place] [facility] [address] [id number] [place] [address] Mar, [facility] [place] [facility] [address] [id number] [place] [address] Mar, [facility] [place] [facility] [address] [id number] [place] [address] Mar, [facility] [place] [facility] [address] [id number] [place] [address] Mar, [facility] [place] [facility] [address] [id number] [place] [address] Mar, [facility] [place] [facility] [address] [id number] [place] [address] 16 Mar, 2013 [facility] [place] [facility] [address] [id number] [place] [address] 16 Mar, 2013 [facility] [place] [facility] [address] [id number] [place] [address] Mar, [facility] [place] [facility] [address] [id number] [place] [address] Mar, [facility] [place] [facility] [address] [id number] [place] [address] Feb, [facility] [place] [facility] [address] [id number] [place] [address] Feb, [facility] [place] [facility] [address] [id number] [place] [address] Feb, [facility] [place] [facility] [address] [id number] [place] [address] Feb, [facility] [place] [facility] [address] [id number] [place] [address] Feb, [facility] [place] [facility] [address] [id number] [place] [address] 14 Feb, 2013 [facility] [place] [facility] [address] [id number] [place] [address] Feb, [facility] [place] [facility] [address] [id number] [place] [address] Feb, [facility] [place] [facility] [address] [id number] [place] [address] Feb, [facility] [place] [facility] [address] [id number] [place] [address] 08 Feb, 2013 [facility] [place] [facility] [address] [id number] [place] [address] Jan, [facility] [place] [facility] [address] [id number] [place] [address] Jan, [facility] [address] [id number] [place] [address] Jan, [facility] [place] [facility] [address] [id number] [place] [address] Jan, [facility] [address] [id number] [place] [address] Jan, [facility] [place] [facility] [address] [id number] [place] [address] Jan, [facility] [address] [id number] [place] [address] Jan, [facility] [address] [id number] [place] [address] Jan, [facility] [address] [id number] [place] [address] Jan, [facility] [address] [id number] [place] [address] Dec, [facility] [place] [facility] [address] [id number] [place] [address] Dec, [facility] [address] [id number] [place] [address] Dec, [facility] [place] [facility] [address] [id number] [place] [address] Dec, [facility] [place] [facility] [address] [id number] [place] [address] Nov, [facility] [place] [facility] [address] [id number] [place] [address] Nov, [facility] [place] [facility] [address] [id number] [place] [address] Nov, [facility] [place] [facility] [address] [id number] [place] [address] Nov, [facility] [address] [id number] [place] [address] Nov, [facility] [place] [facility] [address] [id number] [place] [address] Nov, [facility] [place] [facility] [address] [id number] [place] [address] Oct, [facility] [place] [facility] [address] [id number] [place] [address] Oct, [facility] [place] [facility] [address] [id number] [place] [address] Oct, [facility] [place] [facility] [address] [id number] [place] [address] Oct, [facility] [place] [facility] [address] [id number] [place] [address] Sep, [facility] [place] [facility] [address] [id number] [place] [address] Sep, [facility] [place] [facility] [address] [id number] [place] [address] Sep, [facility] [place] [facility] [address] [id number] [place] [address] Sep, [facility] [place] [facility] [address] [id number] [place] [address] Sep, [facility] [place] [facility] [address] [id number] [place] [address] August, [facility] [place] [facility] [address] [id number] [place] [address] August, [facility] [place] [facility] [address] [id number] [place] [address] Jul, [facility] [place] [facility] [address] [id number] [place] [address] Jul, [facility] [place] [facility] [address] [id number] [place] [address] 15 Jul, 2012 [facility] [address] [id number] [place] [address] Jul, [facility] [place] [facility] [address] [facility] [id number] [place] [address] 08 Jul, 2012 [facility] [address] [facility] [id number] [place] [address] Jun, [facility] [place] [facility] [address] [id number] [place] [address] Jun, [facility] [address] [id number] [place] [address] Jun, [facility] [address] [facility] [id number] [place] [address] Jun, [facility] [address] [id number] [place] [address] Jun, [facility] [place] [facility] [address] [id number] [place] [address] May, [facility] [address] [id number] [place] [address] 27 May, 2012 [facility] [address] [id number] [place] [address] May, [facility] [place] [facility] [address] [id number] [place] [address] 21 May, 2012 [facility] [place] [facility] [address] [facility] [id number] [place] [address] 20 May, 2012 [facility] [place] [facility] [address] [facility] [id number] [place] [address] 14 May, 2012 [facility] [place] [facility] [address] [facility] [id number] [place] [address] 13 May, 2012 [facility] [place] [facility] [id number] [place] [address] 08 May, 2012 [facility] [address] [id number] [place] [address] May, [facility] [place] [facility] [address] [id number] [place] [address] Apr, [facility] [place] [facility] [address] [id number] [place] [address] Apr, [facility] [place] [facility] [address] [id number] [place] [address] Apr, [facility] [address] [id number] [place] [address] Apr, [facility] [place] [facility] [address] [id number] [place] [address] Apr, [facility] [place] [facility] [address] [id number] [place] [address] Mar, [facility] [place] [facility] [address] [id number] [place] [address] Mar, [facility] [place] [facility] [address] [id number] [place] [address] Mar, [facility] [place] [facility] [address] [id number] [place] [address] Mar, [facility] [place] [facility] [address] [id number] [place] [address] Mar, [facility] [place] [facility] [address] [id number] [place] [address] Mar, [facility] [place] [facility] [address] [id number] [place] [address] Mar, [facility] [place] [facility] [address] [id number] [place] [address] Mar, [facility] [place] [facility] [address] [id number] [place] [address] Mar, [facility] [place] [facility] [address] [id number] [place] [address] Mar, [facility] [place] [facility] [address] [id number] [place] [address] 30 Feb, 2012 [facility] [place] [facility] [address] [id number] [place] [address] Feb, [facility] [place] [facility] [address] [facility] [id number] [place] [address] Feb, [facility] [place] [facility] [address] [id number] [place] [address] Feb, [facility] [place] [facility] [address] [id number] [place] [address], [place] [address] Feb, [facility] [place] [facility] [address] [id number] [place] [address] Feb, [facility] [place] [facility] [id number] [address] Feb, [facility] [place] [facility] [address] [id number] [place] [address] Feb, [facility] [place] [facility] [address] [id number] [place] [address] 16 Feb, 2012 [facility] [place] [facility] [address] [facility] [id number] [place] [address] 16 Feb, 2012 [facility] [place] [facility] [address] [id number] [place] [address] Feb, [facility] [place] [facility] [address] [id number] [place] [address] Feb, [facility] [place] [facility] [address] [id number] [place] [address] Feb, [facility] [place] [facility] [address] [facility] [id number] [place] [address] Feb, [facility] [place] [facility] [address] [id number] [place] [address] Feb, [facility] [place] [facility] [address] [id number] [place] [address] 08 Feb, 2012 [facility] [place] [facility] [address] [id number] [place] [address] 07 Feb, 2012 [facility] [place] [facility] [address] [id number] [place] [address] Feb, [facility] [place] [facility] [address] [id number] [place] [address] Jan, [facility] [place] [facility] [address] [id number] [place] [address] Jan, [facility] [place] [facility] [address] [id number] [place] [address] Jan, [facility] [place] [facility] [address] [id number] [place] [address] Jan, [facility] [place] [facility] [address] [id number] [place] [address] Jan, [facility] [place] [facility] [address] [id number] [place] [address] Jan, [facility] [place] [facility] [address] [id number] [place] [address] Jan, [facility] [place] [facility] [address] [id number] [place] [address] Jan, [facility] [place] [facility] [address] [id number] [place] [address] Jan, [facility] [place] [facility] [address] [id number] [place] [address] Jan, [facility] [place] [facility] [address] [id number] [place] [address] 24 Dec, 2011 [facility] [place] [facility] [address] [id number] [place] [address] 18 Sep2011 [facility] [place] [facility] [address] [id number] [place] [address] Dec, [facility] [place] [facility] [address] [id number] [place] [address] Dec, [facility] [place] [facility] [address] [id number] [place] [address] Nov, [facility] [place] [facility] [address] [id number] [place] [address] Nov, [facility] [place] [facility] [address] [id number] [place] [address] Nov, [facility] [place] [facility] [address] [id number] [place] [address] Nov, [facility] [place] [facility] [address] [id number] [place] [address] Nov, [facility] [place] [facility] [address] [id number] [place] [address] Nov, [facility] [place] [facility] [address] [id number] [place] [address] Oct, [facility] [place] [facility] [address] [id number] [place] [address] Oct, [facility] [place] [facility] [address] [id number] [place] [address] Oct, [facility] [place] [facility] [address] [id number] [place] [address] Oct, [facility] [place] [facility] [address] [id number] [place] [address] Oct, [facility] [place] [facility] [address] [id number] [place] [address] Sep, [facility] [place] [facility] [address] [id number] [place] [address] Sep, [facility] [place] [facility] [address] [id number] [place] [address] Sep, [facility] [place] [facility] [address] [id number] [place] [address] 07 Sep, 2011 [facility] [address] [id number] [place] [address] Sep, [facility] [place] [facility] [address] [id number] [place] [address] August, [facility] [address] [id number] [place] [address] August, [facility] [place] [facility] [address] [id number] [place] [address] August, [facility] [address] [id number] [place] [address] August, [facility] [address] [id number] [place] [address] Jul, [facility] [address] [id number] [place] [address] Jul, [facility] [place] [facility] [address] [id number] [place] [address] Jul, [facility] [place] [facility] [address] [id number] [place] [address] Jul, [facility] [address] [id number] [place] [address] Jul, [facility] [place] [facility] [address] [id number] [place] [address] 12 Jul, 2011 [facility] [place] [facility] [address] [id number] [place] [address] 11 Jul, 2011 [facility] [place] [facility] [address] [id number] [place] [address] 10 Jul, 2011 [facility] [place] [facility] [address] [id number] [place] [address] 09 Jul, 2011 [facility] [place] [facility] [address] [id number] [place] [address] Jul, [facility] [place] [facility] [address] [id number] [place] [address] 05 Jul, 2011 [facility] [place] [facility] [address] [id number] [place] [address] Jul, [facility] [place] [facility] [address] [id number] [place] [address] Jul, [facility] [place] [facility] [address] [id number] [place] [address] Jul, [facility] [address] [id number] [place] [address] Jun, [facility] [place] [facility] [address] [id number] [place] [address] Jun, [facility] [address] [id number] [place] [address] Jun, [facility] [address] [id number] [place] [address] Jun, [facility] [place] [facility] [address] [id number] [place] [address] May, [facility] [address] [id number] [place] [address] May, [facility] [place] [facility] [address] [id number] [place] [address] May, [facility] [place] [facility] [address] [id number] [place] [address] Apr, [facility] [place] [facility] [address] [id number] [place] [address] Apr, [facility] [place] [facility] [address] [id number] [place] [address] Apr, [facility] [place] [facility] [address] [id number] [place] [address] Apr, [facility] [place] [facility] [address] [id number] [place] [address] Apr, [facility] [place] [facility] [address] [id number] [place] [address] Mar, [facility] [place] [facility] [address] [id number] [place] [address] Mar, [facility] [place] [facility] [address] [id number] [place] [address] Mar, [facility] [place] [facility] [address] [id number] [place] [address] Mar, [facility] [place] [facility] [address] [id number] [place] [address] Mar, [facility] [place] [facility] [address] [id number] [place] [address] Mar, [facility] [place] [facility] [address] [facility] [id number] [place] [address] Mar, [facility] [place] [facility] [address] [id number] [place] [address] Feb, [facility] [place] [facility] [address] [facility] [id number] [place] [address] Feb, [facility] [place] [facility] [address] [facility] [id number] [place] [address] Feb, [facility] [place] [facility] [address] [id number] [place] [address] Feb, [facility] [place] [facility] [address] [id number] [place] [address] 16 Feb, 2011 [facility] [place] [facility] [address] [id number] [place] [address] 14 Feb, 2011 [facility] [place] [facility] [address] [facility] [id number] [place] [address] 10 Feb, 2011 [facility] [place] [facility] [address] [facility] [id number] [place] [address] 31 Jan, 2011 [facility] [place] [facility] [address] [id number] [place] [address] 31 Jan, 2011 [facility] [place] [facility] [address] [id number] [place] [address] 31 Jan, 2011 [facility] [place] [facility] [address] [id number] [place] [address] 18 Jan, 2011 [facility] [place] [facility] [address] [id number] [place] [address] 17 Jan, 2011 [facility] [place] [facility] [address] [id number] [place] [address] 17 Jan, 2011 [facility] [place] [facility] [address] [id number] [place] [address] 17 Jun, 2010 [facility] [place] [facility] [address] [id number] [place] [address] 30 Mar, 2010 [facility] [place] [facility] [address] [id number] [place] [address] 20 Mar, 2010 [facility] [place] [facility] [address] [id number] [place] [address] 14 Mar, 2010 [facility] [place] [facility] [address] [id number] [place] [address] 14 Mar, 2010 [facility] [place] [facility] [address] [id number] [place] [address] 13 Mar, 2010 [facility] [place] [facility] [address] [id number] [place] [address] 07 Mar, 2010 [facility] [place] [facility] [address] [id number] [place] [address] 02 Mar, 2010 [facility] [place] [facility] [address] [id number] [place] [address] Mar, [facility] [place] [facility] [address] [id number] [place] [address] 30 Feb, 2010 [facility] [place] [facility] [address] [id number] [place] [address] 29 Feb, 2010 [facility] [place] [facility] [address] [id number] [place] [address] 17 Feb, 2010 [facility] [place] [facility] [address] [id number] [place] [address] 17 Feb, 2010 [facility] [place] [facility] [address] [id number] [place] [address] 16 Feb, 2010 [facility] [place] [facility] [address] [id number] [place] [address] 08 Feb, 2010 [facility] [place] [facility] [address] [id number] [place] [address] 04 Feb, 2010 [facility] [place] [facility] [address] [id number] [place] [address] Feb, [facility] [place] [facility] [address] [id number] [place] [address] 28 Jan, 2010 [facility] [place] [facility] [address] [id number] [place] [address] 26 Jan, 2010 [facility] [place] [facility] [address] [id number] [place] [address] 25 Jan, 2010 [facility] [place] [facility] [address] [id number] [place] [address] 18 Jan, 2010 [facility] [place] [facility] [address] [id number] [place] [address] 29 Mar, 2009 [facility] [place] [facility] [address] [id number] [place] [address] 22 Mar, 2009 [facility] [place] [facility] [address] [id number] [place] [address] 19 Mar, 2009 [facility] [place] [facility] [address] [id number] [place] [address] 19 Mar, 2009 [facility] [place] [facility] [address] [id number] [place] [address] 14 Mar, 2009 [facility] [place] [facility] [address] [facility] [id number] [place] [address] Mar, [facility] [address] [id number] [place] [address] Feb, [facility] [address] [id number] [place] [address] Feb, [facility] [address] [id number] [place] [address] Jan, [facility] [address] [id number] [place] [address] Sep, [facility] [address] [id number] [place] [address] May, IMMUNIZATIONS No Known Immunizations SOCIAL HISTORY Never Assessed REASON FOR VISIT Controled x's 3, due 10/21 PLAN OF CARE VITAL SIGNS MEDICATIONS Medication Instructions Dosage Frequency Start Date End Date Duration Status Alprazolam 2 MG Orally 4 times a day as needed take 0.5 tablet 28 days Active [place] 10-325 MG Orally every 6 hrs 1 [...] Surgical History Left ear surgery Hospitalization History [facility] in [place]- Spontaneous Pneumothorax Hospitalization History [facility]- Colon resection
--- OUTSIDE RECORDS SUMMARY | 2018-10-15 01:35 | XMS REPORT ---
Author Author AGUSTÍN PRATER [facility] Address [address] [place] [address] Care Team Providers Care Industrial Trainer Name Role Phone AGUSTÍN PRATER Unavailable PROBLEMS Type Condition ICD9-CM Code OHS14-ER Code Onset Dates Condition Status SNOMED Code Problem Anxiety F41.9 Active 18791388 Problem Chronic pain G89.29 Active 75774319 Problem Constipation K59.00 Active 76088811 Problem Insomnia G47.00 Active 781164357 Problem HTN (hypertension) I10 Active 08162584 Problem Primary insomnia F51.01 Active 5788125 Problem Environmental allergies Z91.09 Active 575088549 Problem Chronic kidney failure N18.9 Active 700192618 Problem Hyperlipidemia E78.5 Active 59879662 Problem Vitamin D deficiency E55.9 Active 48089192 Problem Thoracic back pain, unspecified back pain laterality, unspecified chronicity M54.6 Active 049602342 ALLERGIES No Information ENCOUNTERS Encounter Location Date Diagnosis [facility] [facility] [id number] [place] [address] Oct, Thoracic back pain, unspecified back pain laterality, unspecified chronicity M54.6 and Anxiety F41.9 [facility] [facility] [id number] [place] [address] Sep, Thoracic back pain, unspecified back pain laterality, unspecified chronicity M54.6 and Anxiety F41.9 [facility] [id number] [place] [address] Sep, Thoracic back pain, unspecified back pain laterality, unspecified chronicity M54.6 ; Anxiety F41.9 and Encounter for medication monitoring Z51.81 [facility] [id number] [place] [address] August, [facility] [facility] [id number] [place] [address] August, Thoracic back pain, unspecified back pain laterality, unspecified chronicity M54.6 and Anxiety F41.9 [facility] [id number] [place] [address] August, Hyperlipidemia E78.5 and HTN (hypertension) I10 [place] [id number] [place] [address] August, [place] [id number] [place] [address] August, Medicare welcome exam Z00.00 ; Chronic kidney failure N18.9 ; Anxiety F41.9 ; Chronic pain G89.29 ; Insomnia G47.00 ; Hyperlipidemia E78.5 ; HTN (hypertension) I10 and Thoracic back pain, unspecified back pain laterality, unspecified chronicity M54.6 [facility] [id number] [place] [address] Jul, [facility] [id number] [place] [address] Jul, [facility] [id number] [place] [address] Jul, [facility] [facility] [id number] [place] [address] Jul, Anxiety F41.9 [facility] [id number] [place] [address] Jul, Thoracic back pain, unspecified back pain laterality, unspecified chronicity M54.6 and Anxiety F41.9 [facility] [id number] [place] [address] Jun, Thoracic back pain, unspecified back pain laterality, unspecified chronicity M54.6 and Anxiety F41.9 [facility] [id number] [place] [address] May, Thoracic back pain, unspecified back pain laterality, unspecified chronicity M54.6 and Anxiety F41.9 [facility] [id number] [place] [address] Apr, Thoracic back pain, unspecified back pain laterality, unspecified chronicity M54.6 and Anxiety F41.9 [place] [address] [address] Mar, [place] [address] [address] Mar, Thoracic back pain, unspecified back pain laterality, unspecified chronicity M54.6 and Anxiety F41.9 [place] [id number] [place] [address] Mar, Thoracic back pain, unspecified back pain laterality, unspecified chronicity M54.6 ; HTN (hypertension) I10 ; Hyperlipidemia E78.5 and Anxiety F41.9 [place] [id number] [place] [address] Feb, Thoracic back pain, unspecified back pain laterality, unspecified chronicity M54.6 and Anxiety F41.9 [place] [id number] [place] [address] Nov, [place] [id number] [place] [address] Oct, [place] [id number] [place] [address] Oct, Thoracic back pain, unspecified back pain laterality, unspecified chronicity M54.6 [facility] [id number] [place] [address] Oct, HTN (hypertension) I10 ; Constipation K59.00 ; Hyperlipidemia E78.5 ; Thoracic back pain, unspecified back pain laterality, unspecified chronicity M54.6 ; Chronic pain G89.29 ; Anxiety F41.9 ; Chronic kidney failure N18.9 ; Environmental allergies Z91.09 ; Vitamin D deficiency E55.9 and Primary insomnia F51.01 [facility] [id number] [place] [address] Sep, Anxiety F41.9 [facility] [id number] [place] [address] Sep, [facility] [id number] [place] [address] August, Anxiety F41.9 [facility] [id number] [place] [address] August, [facility] [id number] [place] [address] Jul, Anxiety F41.9 [facility] [id number] [place] [address] Jul, [facility] [id number] [place] [address] Jun, Anxiety F41.9 [facility] [id number] [place] [address] Jun, [facility] [id number] [place] [address] May, [facility] [id number] [place] [address] May, [facility] [id number] [place] [address] May, [facility] [id number] [place] [address] Apr, [facility] [id number] [place] [address] Apr, [facility] [id number] [place] [address] Apr, Anxiety F41.9 [facility] [id number] [place] [address] Apr, Anxiety F41.9 [facility] [id number] [place] [address] Apr, [facility] [id number] [place] [address] Mar, HTN (hypertension) I10 ; Tremor R25.1 ; Hypercholesterolemia E78.0 ; Constipation K59.00 ; Chronic pain G89.29 ; Hyperlipidemia E78.5 ; Insomnia G47.00 ; Anxiety F41.9 and Thoracic back pain, unspecified back pain laterality, unspecified chronicity M54.6 [facility] [id number] [place] [address] Mar, Tremor R25.1 ; HTN (hypertension) I10 ; Hypercholesterolemia E78.0 ; Constipation K59.00 ; Chronic pain G89.29 ; Hyperlipidemia E78.5 ; Insomnia G47.00 ; Anxiety F41.9 and Thoracic back pain, unspecified back pain laterality, unspecified chronicity M54.6 [facility] [id number] [place] [address] Mar, [facility] [id number] [place] [address] Mar, [facility] [id number] [place] [address] Feb, [facility] [id number] [place] [address] Jan, [facility] [id number] [place] [address] Jan, [facility] [id number] [place] [address] Dec, [facility] [id number] [place] [address] Nov, [facility] [address] [address] Nov, [facility] [id number] [place] [address] Oct, Anxiety F41.9 [facility] [id number] [place] [address] Oct, Chronic pain G89.29 [facility] [id number] [place] [address] Sep, [facility] [id number] [place] [address] Sep, [facility] [id number] [place] [address] Sep, [facility] [id number] [place] [address] Sep, [facility] [id number] [place] [address] Sep, Chronic pain syndrome G89.4 [facility] [id number] [place] [address] Sep, HTN (hypertension) I10 ; Chronic pain G89.29 ; Hypercholesterolemia E78.0 ; Chronic kidney failure N18.9 ; Constipation, unspecified constipation type K59.00 ; Anxiety F41.9 and Thoracic back pain, unspecified back pain laterality, unspecified chronicity M54.6 [facility] [id number] [place] [address] August, Chronic pain syndrome G89.4 [facility] [id number] [place] [address] August, Chronic pain syndrome G89.4 [facility] [id number] [place] [address] Jul, Anxiety disorder, unspecified F41.9 and Chronic pain syndrome G89.4 [facility] [id number] [address] Jul, Insomnia, unspecified G47.00 and Chronic pain syndrome G89.4 [facility] [id number] [place] [address] Jul, Allergic rhinitis J30.9 [facility] [id number] [place] [address] Jul, Constipation, unspecified K59.00 [facility] [id number] [place] [address] Jul, [facility] [id number] [place] [address] Jun, [facility] [id number] [place] [address] Jun, [facility] [id number] [place] [address] Jun, [facility] [id number] [place] [address] Jun, [facility] [id number] [place] [address] Jun, [facility] [id number] [place] [address] Jun, [facility] [id number] [place] [address] May, [facility] [id number] [place] [address] May, [facility] [id number] [place] [address] May, Anxiety F41.9 ; Insomnia G47.00 ; Hyperlipidemia E78.5 ; Chronic pain G89.29 ; HTN (hypertension) I10 ; Environmental allergies V15.09 and Constipation 564.00 [facility] [id number] [place] [address] Apr, [facility] [address] [address] Apr, [facility] [id number] [place] [address] Apr, [facility] [id number] [place] [address] Mar, [facility] [id number] [place] [address] Mar, [facility] [id number] [place] [address] Mar, [facility] [id number] [place] [address] Feb, [facility] [id number] [place] [address] Feb, [facility] [id number] [place] [address] Feb, [facility] [id number] [place] [address] Jan, HTN (hypertension) I10 ; Constipation K59.00 ; Chronic pain G89.29 ; Hyperlipidemia E78.5 ; Hypercholesterolemia E78.0 ; Insomnia G47.00 and Anxiety F41.9 [facility] [id number] [place] [address] Jan, [facility] [id number] [place] [address] Dec, [facility] [id number] [place] [address] Nov, [facility] [address] [address] Oct, Chronic kidney disease, unspecified 585.9 ; Chronic pain syndrome 338.4 ; Hyperlipidemia 272.4 and Essential hypertension 401.9 [facility] [address] [address] 20 Oct, 2014 Chronic kidney disease 585.9 [facility] [id number] [place] [address] 15 Oct, 2014 [facility] [id number] [place] [address] 15 Oct, 2014 Chronic kidney disease, unspecified 585.9 ; Hypercalcemia 275.42 ; Hyperlipidemia 272.4 ; Essential hypertension 401.9 ; Chronic pain syndrome 338.4 ; Insomnia 780.52 ; Constipation 564.00 ; Environmental allergies V15.09 and Anxiety 300.00 [facility] [id number] [place] [address] 15 Oct, 2014 Chronic kidney disease 585.9 [facility] [id number] [place] [address] Oct, [facility] [id number] [place] [address] 14 Oct, 2014 Chronic kidney disease 585.9 and Hyperlipidemia 272.4 [facility] [id number] [place] [address] Oct, [facility] [address] [place] [address] Oct, [facility] [id number] [place] [address] 18 Sep, 2014 [facility] [id number] [place] [address] Sep, [facility] [id number] [place] [address] 15 Sep, 2014 Chronic kidney disease 585.9 and Hyperlipidemia 272.4 [facility] [address] [address] 12 Sep, 2014 [facility] [id number] [place] [address] August, [facility] [place] [facility] [address] [id number] [place] [address] August, [facility] [place] [facility] [address] [id number] [place] [address] Jul, [facility] [place] [facility] [address] [id number] [place] [address] Jul, [facility] [place] [facility] [address] [id number] [place] [address] Jun, [facility] [place] [facility] [address] [id number] [place] [address] Jun, [facility] [place] [facility] [address] [id number] [place] [address] Jun, [facility] [place] [facility] [address] [id number] [place] [address] Jun, [facility] [place] [facility] [address] [id number] [place] [address] Jun, [facility] [place] [facility] [address] [id number] [place] [address] Jun, [facility] [place] [facility] [address] [facility] [id number] [place] [address] Jun, [facility] [place] [facility] [address] [id number] [address] Jun, [facility] [place] [facility] [address] [id number], [place] [address] May, [facility] [place] [facility] [address] [id number] [place] [address] May, [facility] [place] [facility] [address] [id number] [place] [address] May, [facility] [place] [facility] [address] [facility] [id number] [place] [address] May, [facility] [place] [facility] [address] [id number] [place] [address] Apr, [facility] [place] [facility] [address] [id number] [place] [address] Apr, [facility] [place] [facility] [address] [id number] [place] [address] Apr, [facility] [place] [facility] [address] [id number] [place] [address] Apr, [facility] [place] [facility] [address] [id number] [place] [address] Apr, [facility] [place] [facility] [address] [id number] [place] [address] Apr, [facility] [place] [facility] [address] [id number] [place] [address] Apr, [facility] [place] [facility] [address] [id number] [place] [address] Apr, [facility] [place] [facility] [address] [id number] [place] [address] Apr, [facility] [place] [facility] [address] [id number] [place] [address] Apr, [facility] [place] [facility] [address] [id number] [place] [address] Apr, [facility] [place] [facility] [address] [id number] [place] [address] Mar, [facility] [place] [facility] [address] [id number] [place] [address] Mar, [facility] [place] [facility] [address] [id number] [place] [address] Feb, [facility] [place] [facility] [address] [id number] [place] [address] Feb, [facility] [place] [facility] [address] [id number] [place] [address] Feb, [facility] [place] [facility] [address] [id number] [place] [address] Feb, [facility] [place] [facility] [address] [id number] [place] [address] Feb, [facility] [place] [facility] [address] [id number] [place] [address] Feb, [facility] [place] [facility] [address] [id number] [place] [address] Feb, [facility] [place] [facility] [address] [id number] [place] [address] Feb, [facility] [place] [facility] [address] [id number] [place] [address] Feb, [facility] [place] [facility] [address] [id number] [place] [address] Feb, [facility] [place] [facility] [address] [id number], [place] [address] Jan, [facility] [place] [facility] [address] [id number], [place] [address] Jan, [facility] [place] [facility] [address] [id number], [place] [address] Jan, [facility] [place] [facility] [address] [id number], [place] [address] Jan, [facility] [place] [facility] [address] [id number], [place] [address] Jan, [facility] [place] [facility] [address] [id number], [place] [address] Jan, [facility] [place] [facility] [address] [id number], [place] [address] Jan, [facility] [place] [facility] [address] [id number], [place] [address] Jan, [facility] [place] [facility] [address] [id number] [place] [address] 16 Jan, 2014 [facility] [place] [facility] [address] [id number] [place] [address] 06 Jan, 2014 [facility] [place] [facility] [address] [id number] [place] [address] Jan, [facility] [place] [facility] [address] [id number] [place] [address] Dec, 2013 [facility] [place] [facility] [address] [id number] [place] [address] 26 Dec, 2013 [facility] [place] [facility] [address] [id number] [place] [address] Dec, [facility] [place] [facility] [address] [id number] [place] [address] Dec, [facility] [place] [facility] [address] [id number] [place] [address] 18 Dec, 2013 [facility] [place] [facility] [address] [id number] [place] [address] 18 Dec, 2013 [facility] [place] [facility] [address] [id number] [place] [address] Dec, [facility] [place] [facility] [address] [id number] [place] [address] Dec, [facility] [place] [facility] [address] [id number] [place] [address] Nov, [facility] [place] [facility] [address] [id number] [place] [address] Nov, [facility] [place] [facility] [address] [id number] [place] [address] Nov, [facility] [place] [facility] [address] [id number] [place] [address] Nov, [facility] [place] [facility] [address] [id number] [place] [address] Nov, [facility] [place] [facility] [address] [id number] [place] [address] Nov, 2013 [facility] [place] [facility] [address] [id number] [place] [address] Nov, [facility] [place] [facility] [address] [id number] [place] [address] Nov, [facility] [place] [facility] [address] [id number] [place] [address] Oct, [facility] [place] [facility] [address] [id number] [place] [address] Oct, [facility] [place] [facility] [address] [id number] [place] [address] Oct, [facility] [place] [facility] [address] [id number] [place] [address] Oct, [facility] [place] [facility] [address] [id number] [place] [address] Sep, [facility] [place] [facility] [address] [id number] [place] [address] Sep, [facility] [place] [facility] [address] [id number] [place] [address] Sep, [facility] [place] [facility] [address] [id number] [place] [address] Sep, [facility] [place] [facility] [address] [id number] [place] [address] Sep, [facility] [place] [facility] [address] [id number] [place] [address] Sep, [facility] [place] [facility] [address] [id number] [place] [address] Sep, [facility] [place] [facility] [address] [id number] [place] [address] Sep, [facility] [place] [facility] [address] [id number] [place] [address] August, [facility] [address] [id number] [place] [address] August, [facility] [place] [facility] [address] [id number] [place] [address] August, [facility] [place] [facility] [address] [id number] [place] [address] August, [facility] [place] [facility] [address] [id number] [place] [address] August, [facility] [place] [facility] [address] [id number] [place] [address] August, [facility] [place] [facility] [address] [id number] [place] [address] August, [facility] [place] [facility] [address] [id number] [place] [address] August, [facility] [place] [facility] [address] [id number] [place] [address] August, [facility] [place] [facility] [address] [id number] [place] [address] August, [facility] [place] [facility] [address] [id number] [place] [address] Jul, [facility] [place] [facility] [address] [id number] [place] [address] Jul, [facility] [place] [facility] [address] [id number] [place] [address] Jul, [facility] [place] [facility] [address] [id number] [place] [address] Jul, [facility] [place] [facility] [address] [id number] [place] [address] Jul, [facility] [place] [facility] [address] [id number] [place] [address] Jul, [facility] [place] [facility] [address] [id number] [place] [address] 10 Jul, 2013 [facility] [address] [id number] [place] [address] Jul, [facility] [place] [facility] [address] [id number] [place] [address] Jun, [facility] [place] [facility] [address] [id number] [place] [address] Jun, [facility] [place] [facility] [address] [id number] [place] [address] Jun, [facility] [place] [facility] [address] [id number] [place] [address] Jun, [facility] [place] [facility] [address] [facility] [id number] [place] [address] Jun, [facility] [place] [facility] [address] [facility] [id number] [place] [address] Jun, [facility] [place] [facility] [address] [id number] [place] [address] May, [facility] [place] [facility] [address] [facility] [id number] [place] [address] May, [facility] [place] [facility] [address] [facility] [id number] [place] [address] May, [facility] [place] [facility] [address] [facility] [id number] [place] [address] May, [facility] [place] [facility] [address] [facility] [id number] [place] [address] May, [facility] [place] [facility] [address] [id number] [place] [address] May, [facility] [place] [facility] [address] [facility] [id number] [place] [address] May, [facility] [place] [facility] [address] [facility] [id number] [place] [address] Apr, [facility] [address] [id number] [place] [address] Apr, [facility] [place] [facility] [address] [id number] [place] [address] Apr, [facility] [place] [facility] [address] [id number] [place] [address] Apr, [facility] [place] [facility] [address] [id number] [place] [address] Apr, [facility] [place] [facility] [address] [id number] [place] [address] Apr, [facility] [place] [facility] [address] [id number] [place] [address] Mar, [facility] [place] [facility] [address] [id number] [place] [address] Mar, [facility] [place] [facility] [address] [id number] [place] [address] Mar, [facility] [place] [facility] [address] [id number] [place] [address] Mar, [facility] [place] [facility] [address] [id number] [place] [address] Mar, [facility] [place] [facility] [address] [id number] [place] [address] 19 Mar, 2013 [facility] [place] [facility] [address] [id number] [place] [address] 16 Mar, 2013 [facility] [place] [facility] [address] [id number] [place] [address] 16 Mar, 2013 [facility] [place] [facility] [address] [id number] [place] [address] 12 Mar, 2013 [facility] [place] [facility] [address] [id number] [place] [address] 12 Mar, 2013 [facility] [place] [facility] [address] [id number] [place] [address] Feb, [facility] [address] [id number] [place] [address] Feb, [facility] [place] [facility] [address] [id number] [place] [address] Feb, [facility] [address] [id number] [place] [address] Feb, [facility] [place] [facility] [address] [id number] [place] [address] Feb, [facility] [address] [id number] [place] [address] Feb, [facility] [place] [facility] [address] [id number] [place] [address] Feb, [facility] [place] [facility] [address] [id number] [place] [address] Feb, [facility] [address] [id number] [place] [address] Feb, [facility] [place] [facility] [address] [id number] [place] [address] Feb, [facility] [address] [id number] [place] [address] Jan, [facility] [place] [facility] [address] [id number] [place] [address] Jan, [facility] [place] [facility] [address] [id number], [place] [address] Jan, [facility] [place] [facility] [address] [id number] [place] [address] Jan, [facility] [place] [facility] [address] [id number] [place] [address] Jan, [facility] [place] [facility] [address] [id number] [place] [address] Jan, [facility] [place] [facility] [address] [id number] [place] [address] Jan, [facility] [place] [facility] [address] [id number] [place] [address] Jan, [facility] [place] [facility] [address] [id number] [place] [address] Jan, [facility] [place] [facility] [address] [id number] [place] [address] Dec, [facility] [place] [facility] [address] [id number] [place] [address] Dec, [facility] [place] [facility] [address] [id number] [place] [address] Dec, [facility] [place] [facility] [address] [id number] [place] [address] Dec, [facility] [place] [facility] [address] [id number] [place] [address] Nov, [facility] [place] [facility] [address] [id number] [place] [address] Nov, [facility] [place] [facility] [address] [id number], [place] [address] Nov, [facility] [place] [facility] [address] [id number], [place] [address] Nov, [facility] [place] [facility] [address] [id number], [place] [address] Nov, [facility] [place] [facility] [address] [id number] [place] [address] Nov, [facility] [place] [facility] [address] [id number], [place] [address] Oct, [facility] [place] [facility] [address] [id number], [place] [address] Oct, [facility] [place] [facility] [address] [id number], [place] [address] 12 Oct, 2012 [facility] [address] [id number] [place] [address] 08 Oct, 2012 [facility] [address] [id number] [place] [address] 27 Sep, 2012 [facility] [address] [id number] [place] [address] Sep, [facility] [address] [id number] [place] [address] 17 Sep, 2012 [facility] [address] [id number] [place] [address] 14 Sep, 2012 [facility] [address] [id number] [place] [address] Sep, [facility] [address] [id number] [place] [address] August, [facility] [address] [id number] [place] [address] 2012 [facility] [address] [id number] [place] [address] Jul, [facility] [address] [id number] [place] [address] Jul, [facility] [address] [id number] [place] [address] 15 Jul, 2012 [facility] [address] [id number] [place] [address] 09 Jul, 2012 [facility] [address] [id number] [place] [address] 08 Jul, 2012 [facility] [address] [id number] [place] [address] 26 Jun, 2012 [facility] [address] [id number] [place] [address] 20 Jun, 2012 [facility] [address] [id number] [place] [address] 15 Jun, 2012 [facility] [place] [facility] [address] [id number] [place] [address] 06 Jun, 2012 [facility] [place] [facility] [address] [id number] [place] [address] Jun, [facility] [place] [facility] [address] [id number] [place] [address] May, [facility] [place] [facility] [address] [id number] [place] [address] May, [facility] [place] [facility] [address] [id number] [place] [address] May, [facility] [place] [facility] [address] [id number] [place] [address] May, [facility] [place] [facility] [address] [id number] [place] [address] May, [facility] [place] [facility] [address] [id number] [place] [address] May, [facility] [place] [facility] [address] [id number] [place] [address] May, [facility] [place] [facility] [address] [id number] [place] [address] May, [facility] [place] [facility] [address] [id number] [place] [address] May, [facility] [place] [facility] [address] [id number] [place] [address] Apr, [facility] [place] [facility] [address] [id number] [place] [address] Apr, [facility] [place] [facility] [address] [id number] [place] [address] Apr, [facility] [place] [facility] [address] [id number] [place] [address] 14 Apr, 2012 [facility] [address] [id number] [place] [address] Apr, [facility] [place] [facility] [address] [id number] [place] [address] Mar, [facility] [address] [id number] [place] [address] Mar, [facility] [place] [facility] [address] [id number] [place] [address] Mar, [facility] [address] [id number] [place] [address] Mar, [facility] [place] [facility] [address] [id number] [place] [address] Mar, [facility] [address] [id number] [place] [address] Mar, [facility] [place] [facility] [address] [id number] [place] [address] Mar, [facility] [place] [facility] [address] [id number] [place] [address] Mar, [facility] [place] [facility] [address] [id number] [place] [address] Mar, [facility] [place] [facility] [address] [id number] [place] [address] Mar, [facility] [place] [facility] [address] [id number] [place] [address] Feb, [facility] [place] [facility] [address] [id number] [place] [address] Feb, [facility] [place] [facility] [address] [id number] [place] [address] Feb, [facility] [place] [facility] [address] [id number] [place] [address] Feb, [facility] [place] [facility] [address] [id number] [place] [address] Feb, [facility] [place] [facility] [address] [id number] [place] [address] Feb, [facility] [place] [facility] [address] [id number] [place] [address] Feb, [facility] [place] [facility] [address] [id number] [place] [address] Feb, [facility] [place] [facility] [address] [id number] [place] [address] 16 Feb, 2012 [facility] [place] [facility] [address] [id number] [place] [address] 16 Feb, 2012 [facility] [place] [facility] [address] [id number] [place] [address] 13 Feb, 2012 [facility] [place] [facility] [address] [id number] [place] [address] 13 Feb, 2012 [facility] [place] [facility] [address] [id number] [place] [address] Feb, [facility] [place] [facility] [address] [id number] [place] [address] Feb, [facility] [place] [facility] [address] [id number] [place] [address] Feb, [facility] [place] [facility] [address] [id number] [place] [address] Feb, [facility] [place] [facility] [address] [id number] [place] [address] Feb, [facility] [place] [facility] [address] [id number] [place] [address] Feb, [facility] [place] [facility] [address] [id number] [place] [address] 31 Jan, 2012 [facility] [place] [facility] [address] [id number] [place] [address] Jan, [facility] [place] [facility] [address] [id number] [place] [address] Jan, [facility] [place] [facility] [address] [id number] [place] [address] Jan, [facility] [place] [facility] [address] [id number] [place] [address] Jan, [facility] [place] [facility] [address] [id number] [place] [address] Jan, [facility] [place] [facility] [address] [id number] [place] [address] Jan, [facility] [place] [facility] [address] [id number] [place] [address] Jan, [facility] [place] [facility] [address] [id number] [place] [address] Jan, [facility] [place] [facility] [address] [id number], [place] [address] Jan, [facility] [place] [facility] [address] [id number] [place] [address] Dec, [facility] [place] [facility] [address] [id number] [place] [address] Dec, [facility] [place] [facility] [address] [id number], [place] [address] Dec, [facility] [place] [facility] [address] [id number], [place] [address] Dec, [facility] [place] [facility] [address] [id number] [place] [address] Nov, [facility] [place] [facility] [address] [id number], [place] [address] Nov, [facility] [place] [facility] [address] [id number] [place] [address] Nov, [facility] [place] [facility] [address] [id number] [place] [address] Nov, [facility] [place] [facility] [address] [id number] [place] [address] Nov, [facility] [place] [facility] [address] [id number] [place] [address] Nov, [facility] [place] [facility] [address] [id number] [place] [address] Oct, [facility] [place] [facility] [address] [id number] [place] [address] Oct, [facility] [place] [facility] [address] [id number] [place] [address] Oct, [facility] [place] [facility] [address] [id number] [place] [address] Oct, [facility] [place] [facility] [address] [id number] [place] [address] Oct, [facility] [place] [facility] [address] [id number] [place] [address] Sep, [facility] [place] [facility] [address] [id number] [place] [address] Sep, [facility] [place] [facility] [address] [id number] [place] [address] Sep, [facility] [place] [facility] [address] [id number] [place] [address] Sep, [facility] [place] [facility] [address] [id number] [place] [address] Sep, [facility] [place] [facility] [address] [id number] [place] [address] August, [facility] [place] [facility] [address] [id number] [place] [address] August, [facility] [place] [facility] [address] [id number] [place] [address] August, [facility] [place] [facility] [address] [id number] [place] [address] August, [facility] [address] [id number] [place] [address] Jul, [facility] [address] [id number] [place] [address] 24 Jul, 2011 [facility] [address] [id number] [place] [address] Jul, [facility] [address] [id number] [place] [address] Jul, [facility] [address] [id number] [place] [address] Jul, [facility] [address] [id number] [place] [address] Jul, [facility] [address] [id number] [place] [address] Jul, [facility] [address] [id number] [place] [address] Jul, [facility] [address] [id number] [place] [address] Jul, [facility] [address] [id number] [place] [address] Jul, [facility] [place] [facility] [address] [id number] [place] [address] 05 Jul, 2011 [facility] [place] [facility] [address] [id number] [place] [address] Jul, [facility] [place] [facility] [address] [id number] [place] [address] Jul, [facility] [place] [facility] [address] [id number] [place] [address] Jul, [facility] [place] [facility] [address] [id number] [place] [address] 28 Jun, 2011 [facility] [address] [id number] [place] [address] 27 Jun, 2011 [facility] [place] [facility] [address] [id number] [place] [address] 20 Jun, 2011 [facility] [address] [id number] [place] [address] 16 Jun, 2011 [facility] [place] [facility] [address] [id number] [place] [address] 27 May, 2011 [facility] [address] [id number] [place] [address] 16 May, 2011 [facility] [address] [id number] [place] [address] 09 May, 2011 [facility] [address] [id number] [place] [address] Apr, [facility] [address] [id number] [place] [address] Apr, [facility] [address] [id number] [place] [address] Apr, [facility] [address] [id number] [place] [address] Apr, [facility] [address] [id number] [place] [address] Apr, [facility] [place] [facility] [address] [id number] [place] [address] Mar, [facility] [place] [facility] [address] [id number] [place] [address] Mar, [facility] [place] [facility] [address] [id number] [place] [address] Mar, [facility] [place] [facility] [address] [id number] [place] [address] Mar, [facility] [place] [facility] [address] [id number] [place] [address] 16 Mar, 2011 [facility] [place] [facility] [address] [id number] [place] [address] 09 Mar, 2011 [facility] [place] [facility] [address] [id number] [place] [address] 05 Mar, 2011 [facility] [place] [facility] [address] [id number] [place] [address] 29 Feb, 2011 [facility] [place] [facility] [address] [id number] [place] [address] Feb, [facility] [place] [facility] [address] [id number] [place] [address] Feb, [facility] [place] [facility] [address] [id number] [place] [address] Feb, [facility] [place] [facility] [address] [id number] [place] [address] 16 Feb, 2011 [facility] [place] [facility] [address] [id number] [place] [address] 14 Feb, 2011 [facility] [place] [facility] [address] [id number] [place] [address] 10 Feb, 2011 [facility] [place] [facility] [address] [id number] [place] [address] 31 Jan, 2011 [facility] [place] [facility] [address] [id number] [place] [address] 31 Jan, 2011 [facility] [place] [facility] [address] [id number] [place] [address] 31 Jan, 2011 [facility] [place] [facility] [address] [id number] [place] [address] 18 Jan, 2011 [facility] [place] [facility] [address] [id number] [place] [address] 17 Jan, 2011 [facility] [place] [facility] [address] [id number] [place] [address] 17 Jan, 2011 [facility] [address] [id number] [place] [address] 17 Jun, 2010 [facility] [place] [facility] [address] [id number] [place] [address] 30 Mar, 2010 [facility] [place] [facility] [address] [id number] [place] [address] 20 Mar, 2010 [facility] [place] [facility] [address] [id number] [place] [address] 14 Mar, 2010 [facility] [place] [facility] [address] [id number] [place] [address] 14 Mar, 2010 [facility] [place] [facility] [address] [id number] [place] [address] 13 Mar, 2010 [facility] [place] [facility] [address] [id number] [place] [address] 07 Mar, 2010 [facility] [place] [facility] [address] [id number] [place] [address] 02 Mar, 2010 [facility] [place] [facility] [address] [id number] [place] [address] Mar, [facility] [place] [facility] [address] [id number] [place] [address] 30 Feb, 2010 [facility] [place] [facility] [address] [id number], [place] [address] 29 Feb, 2010 [facility] [place] [facility] [address] [id number], [place] [address] 17 Feb, 2010 [facility] [place] [facility] [address] [id number] [place] [address] 17 Feb, 2010 [facility] [place] [facility] [address] [id number], [place] [address] 16 Feb, 2010 [facility] [place] [facility] [address] [id number] [place] [address] 08 Feb, 2010 [facility] [place] [facility] [address] [id number] [place] [address] 04 Feb, 2010 [facility] [address] [id number] [place] [address] Feb, [facility] [place] [facility] [address] [id number] [place] [address] 28 Jan, 2010 [facility] [address] [facility] [id number] [place] [address] Jan, [facility] [place] [facility] [address] [id number] [place] [address] Jan, [facility] [id number] [place] [address], [place] [address] Jan, [facility] [place] [facility] [address] [facility] [id number] [place] [address] 29 Mar, 2009 [facility] [place] [facility] [address] [facility] [id number] [place] [address] 22 Mar, 2009 [facility] [place] [facility] [address] [facility] [id number] [place] [address] 19 Mar, 2009 [facility] [place] [facility] [address] [facility] [id number] [place] [address] 19 Mar, 2009 [facility] [place] [facility] [address] [facility] [id number] [place] [address] 14 Mar, 2009 [facility] [place] [facility] [address] [facility] [id number] [place] [address] 10 Mar, 2009 [facility] [place] [facility] [address] [facility] [id number], [place] [address] 18 Feb, 2009 [facility] [place] [facility] [address] [id number] [place] [address] 18 Feb, 2009 [facility] [place] [facility] [address] [facility] [id number], [place] [address] 13 Jan, 2009 [facility] [place] [facility] [address] [facility] [id number], [place] [address] Sep, [facility] [address] [facility] [id number] [place] [address] May, IMMUNIZATIONS No Known Immunizations SOCIAL HISTORY Never Assessed REASON FOR VISIT Hydrocodone due 09/23 PLAN OF CARE VITAL SIGNS MEDICATIONS Medication Instructions Dosage Frequency Start Date End Date Duration Status Alprazolam 2 MG Orally 4 times a day as needed take 0.5 tablet 28 days Active Soma 350 MG Orally Four times a day 1 tablet as needed 6h Active Levasy 10-325 MG Orally every 6 hrs 1 tablet as needed 6h Sep, Active RESULTS No Results PROCEDURES No Known procedures INSTRUCTIONS MEDICATIONS ADMINISTERED No Known Medications MEDICAL (GENERAL) HISTORY Type Description Date Medical History Hypertension Medical History Hyperlipidemia Medical History chronic back pain since age 26 Medical History Anxiety Medical History Hx of Spontaneous Pneumothorax Surgical History right knee arthroscopy Surgical History colon resection Surgical History tonsillectomy Surgical History Left ear surgery Hospitalization History [facility] in [place]- Spontaneous Pneumothorax Hospitalization History [facility]- Colon resection
--- OUTSIDE RECORDS SUMMARY | 2018-10-15 01:53 | XMS REPORT | Continuity of Care Document ---
Author Organization Unknown Address Unknown Allergies Active Description Code Type Severity Reaction Onset Reported/Identified Relationship to Patient Clinical Status Yes aspirin [id number] Drug Allergy Unknown N/A 02/06/2008 Yes NSAIDS (Non-Steroidal Anti-Inflamma [id number] Drug Allergy Unknown N/A 02/06/2008 Yes Penicillins [id number] Drug Allergy Unknown N/A 02/06/2008 Yes aspirin Drug Allergy N/A N/A 05/26/2008 Yes NSAIDS Drug Allergy N/A N/A 05/26/2008 Yes Penicillins Drug Allergy N/A N/A 05/26/2008 Yes aspirin Drug Allergy 05/26/2008 Yes NSAIDS Drug Allergy 05/26/2008 Yes Penicillins Drug Allergy 05/26/2008 Yes NON STEROIDOL ANTI INFLAMTORY NON STEROIDOL ANTI INFLAMTORY Mild N/A 09/04/2008 Yes niacin Drug Allergy N/A N/A 07/23/2010 Yes niacin Drug Allergy 07/23/2010 Medications There is no data. Problems Date Dx Coded Attending Type Code Diagnosis Diagnosed By 10/28/2007 STEPHAN DE LEON DO 789.00 Colic Infantile 10/28/2007 STEPHAN DE LEON DO 789.00 Colic Infantile 10/28/2007 STEPHAN DE LEON DO 789.00 Colic Infantile 10/28/2007 STEPHAN DE LEON DO 789.00 Colic Infantile 10/28/2007 789.00 Colic Infantile 10/28/2007 789.00 Colic Infantile 10/28/2007 789.00 Colic Infantile 10/28/2007 STEPHAN DE LEON DO 789.00 Colic Infantile 10/28/2007 STEPHAN DE LEON DO 789.00 Colic Infantile 10/28/2007 STEPHAN DE LEON DO 789.00 Colic Infantile 10/28/2007 STEPHAN DE LEON DO 789.00 Colic Infantile 10/28/2007 STEPHAN DE LEON DO 789.00 Colic Infantile 10/28/2007 DE LEON DO, STEPHAN K 789.00 Colic Infantile 10/28/2007 DE LEON DO, STEPHAN K 789.00 Colic Infantile 10/28/2007 DE LEON DO, STEPHAN K 789.00 Colic Infantile 10/28/2007 DE LEON DO, STEPHAN K 789.00 Colic Infantile 10/28/2007 DE LEON DO, STEPHAN K 789.00 Colic Infantile 10/29/2007 DE LEON DO, STEPHAN K 788.1 Dysuria 10/29/2007 DE LEON DO, STEPHAN K 788.1 Dysuria 10/29/2007 DE LEON DO, STEPHAN K 788.1 Dysuria 10/29/2007 DE LEON DO, STEPHAN K 788.1 Dysuria 10/29/2007 788.1 Dysuria 10/29/2007 788.1 Dysuria 10/29/2007 788.1 Dysuria 10/29/2007 DE LEON DO, STEPHAN K 788.1 Dysuria 10/29/2007 DE LEON DO, STEPHAN K 788.1 Dysuria 10/29/2007 DE LEON DO, STEPHAN K 788.1 Dysuria 10/29/2007 DE LEON DO, STEPHAN K 788.1 Dysuria 10/29/2007 DE LEON DO, STEPHAN K 788.1 Dysuria 10/29/2007 DE LEON DO, STEPHAN K 788.1 Dysuria 10/29/2007 DE LEON DO, STEPHAN K 788.1 Dysuria 10/29/2007 DE LEON DO, STEPHAN K 788.1 Dysuria 10/29/2007 DE LEON DO, STEPHAN K 788.1 Dysuria 10/29/2007 DE LEON DO, STEPHAN K 788.1 Dysuria 12/18/2007 DE LEON DO, STEPHAN K 380.10 Otitis Externa Unspecified 12/18/2007 DE LEON DO, STEPHAN K 380.4 Cerumen Impaction 12/18/2007 DE LEON DO, STEPHAN K 380.10 Otitis Externa Unspecified 12/18/2007 DE LEON DO, STEPHAN K 380.4 Cerumen Impaction 12/18/2007 DE LEON DO, STEPHAN K 380.10 Otitis Externa Unspecified 12/18/2007 DE LEON DO, STEPHAN K 380.4 Cerumen Impaction 12/18/2007 DE LEON DO, STEPHAN K 380.10 Otitis Externa Unspecified 12/18/2007 DE LEON DO, STEPHAN K 380.4 Cerumen Impaction 12/18/2007 380.10 Otitis Externa Unspecified 12/18/2007 380.4 Cerumen Impaction 12/18/2007 380.10 Otitis Externa Unspecified 12/18/2007 380.4 Cerumen Impaction 12/18/2007 380.10 Otitis Externa Unspecified 12/18/2007 380.4 Cerumen Impaction 12/18/2007 DE LEON DO, STEPHAN K 380.10 Otitis Externa Unspecified 12/18/2007 DE LEON DO, STEPHAN K 380.4 Cerumen Impaction 12/18/2007 DE LEON DO, STEPHAN K 380.10 Otitis Externa Unspecified 12/18/2007 DE LEON DO, STEPHAN K 380.4 Cerumen Impaction 12/18/2007 DE LEON DO, STEPHAN K 380.10 Otitis Externa Unspecified 12/18/2007 DE LEON DO, STEPHAN K 380.4 Cerumen Impaction 12/18/2007 DE LEON DO, STEPHAN K 380.10 Otitis Externa Unspecified 12/18/2007 DE LEON DO, STEPHAN K 380.4 Cerumen Impaction 12/18/2007 DE LEON DO, STEPHAN K 380.10 Otitis Externa Unspecified 12/18/2007 DE LEON DO, STEPHAN K 380.4 Cerumen Impaction 12/18/2007 DE LEON DO, STEPHAN K 380.10 Otitis Externa Unspecified 12/18/2007 DE LEON DO, STEPHAN K 380.4 Cerumen Impaction 12/18/2007 DE LEON DO, STEPHAN K 380.10 Otitis Externa Unspecified 12/18/2007 DE LEON DO, STEPHAN K 380.4 Cerumen Impaction 12/18/2007 DE LEON DO, STEPHAN K 380.10 Otitis Externa Unspecified 12/18/2007 DE LEON DO, STEPHAN K 380.4 Cerumen Impaction 12/18/2007 DE LEON DO, STEPHAN K 380.10 Otitis Externa Unspecified 12/18/2007 DE LEON DO, STEPHAN K 380.4 Cerumen Impaction 12/18/2007 DE LEON DO, STEPHAN K 380.10 Otitis Externa Unspecified 12/18/2007 DE LEON DO, STEPHAN K 380.4 Cerumen Impaction 06/08/2008 DE LEON DO, STEPHAN K 356.9 POLYNEUROPATHY 06/08/2008 DE LEON DO, STEPHAN K 356.9 POLYNEUROPATHY 06/08/2008 DE LEON DO, STEPHAN K 356.9 POLYNEUROPATHY 06/08/2008 DE LEON DO, STEPHAN K 356.9 POLYNEUROPATHY 06/08/2008 356.9 POLYNEUROPATHY 06/08/2008 356.9 POLYNEUROPATHY 06/08/2008 356.9 POLYNEUROPATHY 06/08/2008 DE LEON DO, STEPHAN K 356.9 POLYNEUROPATHY 06/08/2008 DE LEON DO, STEPHAN K 356.9 POLYNEUROPATHY 06/08/2008 DE LEON DO, STEPHAN K 356.9 POLYNEUROPATHY 06/08/2008 DE LEON DO, STEPHAN K 356.9 POLYNEUROPATHY 06/08/2008 DE LEON DO, STEPHAN K 356.9 POLYNEUROPATHY 06/08/2008 DE LEON DO, STEPHAN K 356.9 POLYNEUROPATHY 06/08/2008 DE LEON DO, STEPHAN K 356.9 POLYNEUROPATHY 06/08/2008 DE LEON DO, STEPHAN K 356.9 POLYNEUROPATHY 06/08/2008 DE LEON DO, STEPHAN K 356.9 POLYNEUROPATHY 06/08/2008 DE LEON DO, STEPHAN K 356.9 POLYNEUROPATHY 08/11/2008 DE LEON DO, STEPHAN K 338.4 CHRONIC PAIN SYNDROME 08/11/2008 DE LEON DO, STEPHAN K 338.4 CHRONIC PAIN SYNDROME 08/11/2008 DE LEON DO, STEPHAN K 338.4 CHRONIC PAIN SYNDROME 08/11/2008 DE LEON DO, STEPHAN K 338.4 CHRONIC PAIN SYNDROME 08/11/2008 338.4 CHRONIC PAIN SYNDROME 08/11/2008 338.4 CHRONIC PAIN SYNDROME 08/11/2008 338.4 CHRONIC PAIN SYNDROME 08/11/2008 DE LEON DO, STEPHAN K 338.4 CHRONIC PAIN SYNDROME 08/11/2008 DE LEON DO, STEPHAN K 338.4 CHRONIC PAIN SYNDROME 08/11/2008 DE LEON DO, STEPHAN K 338.4 CHRONIC PAIN SYNDROME 08/11/2008 DE LEON DO, STEPHAN K 338.4 CHRONIC PAIN SYNDROME 08/11/2008 DE LEON DO, STEPHAN K 338.4 CHRONIC PAIN SYNDROME 08/11/2008 DE LEON DO, STEPHAN K 338.4 CHRONIC PAIN SYNDROME 08/11/2008 DE LEON DO, STEPHAN K 338.4 CHRONIC PAIN SYNDROME 08/11/2008 DE LEON DO, STEPHAN K 338.4 CHRONIC PAIN SYNDROME 08/11/2008 DE LEON DO, STEPHAN K 338.4 CHRONIC PAIN SYNDROME 08/11/2008 DE LEON DO, STEPHAN K 338.4 CHRONIC PAIN SYNDROME 10/17/2008 DE LEON DO, STEPHAN K 372.30 Conjunctivitis 10/17/2008 DE LEON DO, STEPHAN K 372.30 Conjunctivitis 10/17/2008 DE LEON DO, STEPHAN K 372.30 Conjunctivitis 10/17/2008 DE LEON DO, STEPHAN K 372.30 Conjunctivitis 10/17/2008 372.30 Conjunctivitis 10/17/2008 372.30 Conjunctivitis 10/17/2008 372.30 Conjunctivitis 10/17/2008 DE LEON DO, STEPHAN K 372.30 Conjunctivitis 10/17/2008 DE LEON DO, STEPHAN K 372.30 Conjunctivitis 10/17/2008 DE LEON DO, STEPHAN K 372.30 Conjunctivitis 10/17/2008 DE LEON DO, STEPHAN K 372.30 Conjunctivitis 10/17/2008 DE LEON DO, STEPHAN K 372.30 Conjunctivitis 10/17/2008 DE LEON DO, STEPHAN K 372.30 Conjunctivitis 10/17/2008 DE LEON DO, STEPHAN K 372.30 Conjunctivitis 10/17/2008 DE LEON DO, STEPHAN K 372.30 Conjunctivitis 10/17/2008 DE LEON DO, STEPHAN K 372.30 Conjunctivitis 10/17/2008 DE LEON DO, STEPHAN K 372.30 Conjunctivitis 10/26/2008 DE LEON DO, STEPHAN K 271.9 GLUCOSE INTOLERANCE 10/26/2008 DE LEON DO, STEPHAN K 271.9 GLUCOSE INTOLERANCE 10/26/2008 DE LEON DO, STEPHAN K 271.9 GLUCOSE INTOLERANCE 10/26/2008 DE LEON DO, STEPHAN K 271.9 GLUCOSE INTOLERANCE 10/26/2008 271.9 GLUCOSE INTOLERANCE 10/26/2008 271.9 GLUCOSE INTOLERANCE 10/26/2008 271.9 GLUCOSE INTOLERANCE 10/26/2008 DE LEON DO, STEPHAN K 271.9 GLUCOSE INTOLERANCE 10/26/2008 DE LEON DO, STEPHAN K 271.9 GLUCOSE INTOLERANCE 10/26/2008 DE LEON DO, STEPHAN K 271.9 GLUCOSE INTOLERANCE 10/26/2008 DE LEON DO, STEPHAN K 271.9 GLUCOSE INTOLERANCE 10/26/2008 DE LEON DO, STEPHAN K 271.9 GLUCOSE INTOLERANCE 10/26/2008 DE LEON DO, STEPHAN K 271.9 GLUCOSE INTOLERANCE 10/26/2008 DE LEON DO, STEPHAN K 271.9 GLUCOSE INTOLERANCE 10/26/2008 DE LEON DO, STEPHAN K 271.9 GLUCOSE INTOLERANCE 10/26/2008 DE LEON DO, STEPHAN K 271.9 GLUCOSE INTOLERANCE 10/26/2008 DE LEON DO, STEPHAN K 271.9 GLUCOSE INTOLERANCE 11/21/2008 DE LEON DO, STEPHAN K 257.2 HYPOGONADISM 11/21/2008 DE LEON DO, STEPHAN K 272.4 DYSLIPIDEMIA 11/21/2008 DE LEON DO, STEPHAN K 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 11/21/2008 DE LEON DO, STEPHAN K 571.8 FATTY LIVER 11/21/2008 DE LEON DO, STEPHAN K V58.69 taking high-risk medication 11/21/2008 DE LEON DO, STEPHAN K 257.2 HYPOGONADISM 11/21/2008 DE LEON DO, STEPHAN K 272.4 DYSLIPIDEMIA 11/21/2008 DE LEON DO, STEPHAN K 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 11/21/2008 DE LEON DO, STEPHAN K 571.8 FATTY LIVER 11/21/2008 DE LEON DO, STEPHAN K V58.69 taking high-risk medication 11/21/2008 DE LEON DO, STEPHAN K 257.2 HYPOGONADISM 11/21/2008 DE LEON DO, STEPHAN K 272.4 DYSLIPIDEMIA 11/21/2008 DE LEON DO, STEPHAN K 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 11/21/2008 DE LEON DO, STEPHAN K 571.8 FATTY LIVER 11/21/2008 DE LEON DO, STEPHAN K V58.69 taking high-risk medication 11/21/2008 DE LEON DO, STEPHAN K 257.2 HYPOGONADISM 11/21/2008 DE LEON DO, STEPHAN K 272.4 DYSLIPIDEMIA 11/21/2008 DE LEON DO, STEPHAN K 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 11/21/2008 DE LEON DO, STEPHAN K 571.8 FATTY LIVER 11/21/2008 DE LEON DO, STEPHAN K V58.69 taking high-risk medication 11/21/2008 257.2 HYPOGONADISM 11/21/2008 272.4 DYSLIPIDEMIA 11/21/2008 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 11/21/2008 571.8 FATTY LIVER 11/21/2008 V58.69 taking high-risk medication 11/21/2008 257.2 HYPOGONADISM 11/21/2008 272.4 DYSLIPIDEMIA 11/21/2008 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 11/21/2008 571.8 FATTY LIVER 11/21/2008 V58.69 taking high-risk medication 11/21/2008 257.2 HYPOGONADISM 11/21/2008 272.4 DYSLIPIDEMIA 11/21/2008 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 11/21/2008 571.8 FATTY LIVER 11/21/2008 V58.69 taking high-risk medication 11/21/2008 DE LEON DO, STEPHAN K 257.2 HYPOGONADISM 11/21/2008 DE LEON DO, SETPHAN K 272.4 DYSLIPIDEMIA 11/21/2008 DE LEON DO, STEPHAN K 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 11/21/2008 DE LEON DO, STEPHAN K 571.8 FATTY LIVER 11/21/2008 DE LEON DO, STEPHAN K V58.69 taking high-risk medication 11/21/2008 DE LEON DO, STEPHAN K 257.2 HYPOGONADISM 11/21/2008 DE LEON DO, STEPHAN K 272.4 DYSLIPIDEMIA 11/21/2008 DE LEON DO, STEPHAN K 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 11/21/2008 DE LEON DO, STEPHAN K 571.8 FATTY LIVER 11/21/2008 DE LEON DO, STEPHAN K V58.69 taking high-risk medication 11/21/2008 DE LEON DO, STEPHAN K 257.2 HYPOGONADISM 11/21/2008 DE LEON DO, STEPHAN K 272.4 DYSLIPIDEMIA 11/21/2008 DE LEON DO, STEPHAN K 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 11/21/2008 DE LEON DO, STEPHAN K 571.8 FATTY LIVER 11/21/2008 DE LEON DO, STEPHAN K V58.69 taking high-risk medication 11/21/2008 DE LEON DO, STEPHAN K 257.2 HYPOGONADISM 11/21/2008 DE LEON DO, STEPHAN K 272.4 DYSLIPIDEMIA 11/21/2008 DE LEON DO, STEPHAN K 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 11/21/2008 DE LEON DO, STEPHAN K 571.8 FATTY LIVER 11/21/2008 DE LEON DO, STEPHAN K V58.69 taking high-risk medication 11/21/2008 DE LEON DO, STEPHAN K 257.2 HYPOGONADISM 11/21/2008 DE LEON DO, STEPHAN K 272.4 DYSLIPIDEMIA 11/21/2008 DE LEON DO, STEPHAN K 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 11/21/2008 DE LEON DO, STEPHAN K 571.8 FATTY LIVER 11/21/2008 DE LEON DO, STEPHAN K V58.69 taking high-risk medication 11/21/2008 DE LEON DO, STEPHAN K 257.2 HYPOGONADISM 11/21/2008 DE LEON DO, STEPHAN K 272.4 DYSLIPIDEMIA 11/21/2008 DE LEON DO, STEPHAN K 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 11/21/2008 DE LEON DO, STEPHAN K 571.8 FATTY LIVER 11/21/2008 DE LEON DO, STEPHAN K V58.69 taking high-risk medication 11/21/2008 DE LEON DO, STEPHAN K 257.2 HYPOGONADISM 11/21/2008 DE LEON DO, STEPHAN K 272.4 DYSLIPIDEMIA 11/21/2008 DE LEON DO, STEPHAN K 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 11/21/2008 DE LEON DO, STEPHAN K 571.8 FATTY LIVER 11/21/2008 DE LEON DO, STEPHAN K V58.69 taking high-risk medication 11/21/2008 DE LEON DO, STEPHAN K 257.2 HYPOGONADISM 11/21/2008 DE LEON DO, STEPHAN K 272.4 DYSLIPIDEMIA 11/21/2008 DE LEON DO, STEPHAN K 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 11/21/2008 DE LEON DO, STEPHAN K 571.8 FATTY LIVER 11/21/2008 DE LEON DO, STEPHAN K V58.69 taking high-risk medication 11/21/2008 DE LEON DO, STEPHAN K 257.2 HYPOGONADISM 11/21/2008 DE LEON DO, STEPHAN K 272.4 DYSLIPIDEMIA 11/21/2008 DE LEON DO, STEPHAN K 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 11/21/2008 DE LEON DO, STEPHAN K 571.8 FATTY LIVER 11/21/2008 DE LEON DO, STEPHAN K V58.69 taking high-risk medication 11/21/2008 DE LEON DO, STEPHAN K 257.2 HYPOGONADISM 11/21/2008 DE LEON DO, STEPHAN K 272.4 DYSLIPIDEMIA 11/21/2008 DE LEON DO, STEPHAN K 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 11/21/2008 DE LEON DO, STEPHAN K 571.8 FATTY LIVER 11/21/2008 DE LEON DO, STEPHAN K V58.69 taking high-risk medication 04/08/2009 DE LEON DO, STEPHAN K 691.8 Dermatitis Atopic Eczema 04/08/2009 DE LEON DO, STEPHAN K 691.8 Dermatitis Atopic Eczema 04/08/2009 DE LEON DO, STEPHAN K 691.8 Dermatitis Atopic Eczema 04/08/2009 DE LEON DO, STEPHAN K 691.8 Dermatitis Atopic Eczema 04/08/2009 691.8 Dermatitis Atopic Eczema 04/08/2009 691.8 Dermatitis Atopic Eczema 04/08/2009 691.8 Dermatitis Atopic Eczema 04/08/2009 DE LEON DO, STEPHAN K 691.8 Dermatitis Atopic Eczema 04/08/2009 DE LEON DO, STEPHAN K 691.8 Dermatitis Atopic Eczema 04/08/2009 DE LEON DO, STEPHAN K 691.8 Dermatitis Atopic Eczema 04/08/2009 DE LEON DO, STEPHAN K 691.8 Dermatitis Atopic Eczema 04/08/2009 DE LEON DO, STEPHAN K 691.8 Dermatitis Atopic Eczema 04/08/2009 DE LEON DO, STEPHAN K 691.8 Dermatitis Atopic Eczema 04/08/2009 DE LEON DO, STEPHAN K 691.8 Dermatitis Atopic Eczema 04/08/2009 DE LEON DO, STEPHAN K 691.8 Dermatitis Atopic Eczema 04/08/2009 DE LEON DO, STEPHAN K 691.8 Dermatitis Atopic Eczema 04/08/2009 DE LEON DO, STEPHAN K 691.8 Dermatitis Atopic Eczema 04/25/2009 DE LEON DO, STEPHAN K 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 04/25/2009 HALEY DO, STEPHAN K 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 04/25/2009 HALEY DO STEPHAN K 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 04/25/2009 HALEY DO, STEPHAN K 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 04/25/2009 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 04/25/2009 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 04/25/2009 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 04/25/2009 HALEY DO, STEPHAN K 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 04/25/2009 HALEY DO, STEPHAN K 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 04/25/2009 DE LEON DO, STEPHAN K 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 04/25/2009 DE LEON DO, STEPHAN K 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 04/25/2009 DE LEON DO, STEPHAN K 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 04/25/2009 DE LEON DO, STEPHAN K 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 04/25/2009 DE LEON DO, STEPHAN K 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60 Eustachian Tube Block 09/12/2009 381.60 Eustachian Tube Block 09/12/2009 DE LEON DO, STEPHAN K 381.60 Eustachian Tube Block 09/12/2009 DE LEON DO, STEPHAN K 381.60 Eustachian Tube Block 09/12/2009 DE LEON DO, STEPHAN K 381.60 Eustachian Tube Block 09/12/2009 DE LEON DO, STEPHAN K 381.60 Eustachian Tube Block 09/12/2009 DE LEON DO, STEPHAN K 381.60 Eustachian Tube Block 09/12/2009 DE LEON DO, STEPAHN K 381.60 Eustachian Tube Block 09/12/2009 DE LEON DO, STEPHAN K 381.60 Eustachian Tube Block 09/12/2009 DE LEON DO, STEPHAN K 381.60 Eustachian Tube Block 09/12/2009 DE LEON DO, STEPHAN K 381.60 Eustachian Tube Block 09/12/2009 DE LEON DO, STEPHAN K 381.60 Eustachian Tube Block 01/10/2010 DE LEON DO, STEPHAN K 401.1 ESSENTIAL HYPERTENSION BENIGN 01/10/2010 DE LEON DO, STEPHAN K 401.1 ESSENTIAL HYPERTENSION BENIGN 01/10/2010 DE LEON DO, STEPHAN K 401.1 ESSENTIAL HYPERTENSION BENIGN 01/10/2010 DE LEON DO, STEPHAN K 401.1 ESSENTIAL HYPERTENSION BENIGN 01/10/2010 401.1 ESSENTIAL HYPERTENSION BENIGN 01/10/2010 401.1 ESSENTIAL HYPERTENSION BENIGN 01/10/2010 401.1 ESSENTIAL HYPERTENSION BENIGN 01/10/2010 DE LEON DO, STEPHAN K 401.1 ESSENTIAL HYPERTENSION BENIGN 01/10/2010 DE LEON DO, STEPHAN K 401.1 ESSENTIAL HYPERTENSION BENIGN 01/10/2010 DE LEON DO, STEPHAN K 401.1 ESSENTIAL HYPERTENSION BENIGN 01/10/2010 DE LEON DO, STEPHAN K 401.1 ESSENTIAL HYPERTENSION BENIGN 01/10/2010 DE LEON DO, STEPHAN K 401.1 ESSENTIAL HYPERTENSION BENIGN 01/10/2010 DE LEON DO, STEPHAN K 401.1 ESSENTIAL HYPERTENSION BENIGN 01/10/2010 DE LEON DO, STEPHAN K 401.1 ESSENTIAL HYPERTENSION BENIGN 01/10/2010 DE LEON DO, STEPHAN K 401.1 ESSENTIAL HYPERTENSION BENIGN 01/10/2010 DE LEON DO, STEPHAN K 401.1 ESSENTIAL HYPERTENSION BENIGN 01/10/2010 DE LEON DO, STEPHAN K 401.1 ESSENTIAL HYPERTENSION BENIGN 03/07/2010 DE LEON DO, STEPHAN K 691.8 Dermatitis Atopic Eczema 03/07/2010 DE LEON DO, STEPHAN K 691.8 Dermatitis Atopic Eczema 03/07/2010 DE LEON DO, STEPHAN K 691.8 Dermatitis Atopic Eczema 03/07/2010 DE LEON DO, STEPHAN K 691.8 Dermatitis Atopic Eczema 03/07/2010 691.8 Dermatitis Atopic Eczema 03/07/2010 691.8 Dermatitis Atopic Eczema 03/07/2010 691.8 Dermatitis Atopic Eczema 03/07/2010 DE LEON DO, STEPHAN K 691.8 Dermatitis Atopic Eczema 03/07/2010 DE LEON DO, STEPHAN K 691.8 Dermatitis Atopic Eczema 03/07/2010 DE LEON DO, STEPHAN K 691.8 Dermatitis Atopic Eczema 03/07/2010 DE LEON DO, STEPHAN K 691.8 Dermatitis Atopic Eczema 03/07/2010 DE LEON DO, STEPHAN K 691.8 Dermatitis Atopic Eczema 03/07/2010 DE LEON DO, STEPHAN K 691.8 Dermatitis Atopic Eczema 03/07/2010 DE LEON DO, STEPHAN K 691.8 Dermatitis Atopic Eczema 03/07/2010 DE LEON DO, STEPHAN K 691.8 Dermatitis Atopic Eczema 03/07/2010 DE LEON DO, STEPHAN K 691.8 Dermatitis Atopic Eczema 03/07/2010 DE LEON DO, STEPHAN K 691.8 Dermatitis Atopic Eczema 03/20/2010 DE LEON DO, STEPHAN K 593.9 RENAL INSUFFICIENCY 03/20/2010 DE LEON DO, STEPHAN K 593.9 RENAL INSUFFICIENCY 03/20/2010 DE LEON DO, STEPHAN K 593.9 RENAL INSUFFICIENCY 03/20/2010 DE LEON DO, STEPHAN K 593.9 RENAL INSUFFICIENCY 03/20/2010 593.9 RENAL INSUFFICIENCY 03/20/2010 593.9 RENAL INSUFFICIENCY 03/20/2010 593.9 RENAL INSUFFICIENCY 03/20/2010 DE LEON DO, STEPHAN K 593.9 RENAL INSUFFICIENCY 03/20/2010 DE LEON DO, STEPHAN K 593.9 RENAL INSUFFICIENCY 03/20/2010 DE LEON DO, STEPHAN K 593.9 RENAL INSUFFICIENCY 03/20/2010 DE LEON DO, STEPHAN K 593.9 RENAL INSUFFICIENCY 03/20/2010 DE LEON DO, STEPHAN K 593.9 RENAL INSUFFICIENCY 03/20/2010 DE LEON DO, STEPHAN K 593.9 RENAL INSUFFICIENCY 03/20/2010 DE LEON DO, STEPHAN K 593.9 RENAL INSUFFICIENCY 03/20/2010 DE LEON DO, STEPHAN K 593.9 RENAL INSUFFICIENCY 03/20/2010 DE LEON DO, STEPHAN K 593.9 RENAL INSUFFICIENCY 03/20/2010 DE LEON DO, STEPHAN K 593.9 RENAL INSUFFICIENCY 05/30/2010 DE LEON DO, STEPHAN K 785.2 MURMURS, UNDIAGNOSED CARDIAC 05/30/2010 DE LEON DO, STEPHAN K 785.9 CAROTID BRUIT 05/30/2010 DE LEON DO, STEPHAN K 785.2 MURMURS, UNDIAGNOSED CARDIAC 05/30/2010 DE LEON DO, STEPHAN K 785.9 CAROTID BRUIT 05/30/2010 DE LEON DO, STEPHAN K 785.2 MURMURS, UNDIAGNOSED CARDIAC 05/30/2010 DE LEON DO, STEPHAN K 785.9 CAROTID BRUIT 05/30/2010 DE LEON DO, STEPHAN K 785.2 MURMURS, UNDIAGNOSED CARDIAC 05/30/2010 DE LEON DO, STEPHAN K 785.9 CAROTID BRUIT 05/30/2010 785.2 MURMURS, UNDIAGNOSED CARDIAC 05/30/2010 785.9 CAROTID BRUIT 05/30/2010 785.2 MURMURS, UNDIAGNOSED CARDIAC 05/30/2010 785.9 CAROTID BRUIT 05/30/2010 785.2 MURMURS, UNDIAGNOSED CARDIAC 05/30/2010 785.9 CAROTID BRUIT 05/30/2010 DE LEON DO, STEPHAN K 785.2 MURMURS, UNDIAGNOSED CARDIAC 05/30/2010 DE LEON DO, STEPHAN K 785.9 CAROTID BRUIT 05/30/2010 DE LEON DO, STEPHAN K 785.2 MURMURS, UNDIAGNOSED CARDIAC 05/30/2010 DE LEON DO, STEPHAN K 785.9 CAROTID BRUIT 05/30/2010 DE LEON DO, STEPHAN K 785.2 MURMURS, UNDIAGNOSED CARDIAC 05/30/2010 DE LEON DO, STEPHAN K 785.9 CAROTID BRUIT 05/30/2010 DE LEON DO, STEPHAN K 785.2 MURMURS, UNDIAGNOSED CARDIAC 05/30/2010 DE LEON DO, STEPHAN K 785.9 CAROTID BRUIT 05/30/2010 DE LEON DO, STEPHAN K 785.2 MURMURS, UNDIAGNOSED CARDIAC 05/30/2010 DE LEON DO, STEPHAN K 785.9 CAROTID BRUIT 05/30/2010 DE LEON DO, STEPHAN K 785.2 MURMURS, UNDIAGNOSED CARDIAC 05/30/2010 DE LEON DO, STEPHAN K 785.9 CAROTID BRUIT 05/30/2010 DE LEON DO, STEPHAN K 785.2 MURMURS, UNDIAGNOSED CARDIAC 05/30/2010 DE LEON DO, STEPHAN K 785.9 CAROTID BRUIT 05/30/2010 DE LEON DO, STEPHAN K 785.2 MURMURS, UNDIAGNOSED CARDIAC 05/30/2010 DE LEON DO, STEPHAN K 785.9 CAROTID BRUIT 05/30/2010 DE LEON DO, STEPHAN K 785.2 MURMURS, UNDIAGNOSED CARDIAC 05/30/2010 DE LEON DO, STEPHAN K 785.9 CAROTID BRUIT 05/30/2010 DE LEON DO, STEPHAN K 785.2 MURMURS, UNDIAGNOSED CARDIAC 05/30/2010 DE LEON DO, STEPHAN K 785.9 CAROTID BRUIT 11/29/2010 Ot 560.32 FECAL IMPACTION 11/29/2010 Ot 564.00 UNSPEC CONSTIPATION 11/29/2010 Ot 593.9 RENAL URETERAL DIS NOS 04/29/2011 STEPHAN DE LEON DO K 380.10 Otitis Externa Left 04/29/2011 DIAZ DE LEON DOA K 380.10 Otitis Externa Left 04/29/2011 HALEY CASTILLO STEPHAN K 380.10 Otitis Externa Left 04/29/2011 DIAZ DE LEON DOA K 380.10 Otitis Externa Left 04/29/2011 380.10 Otitis Externa Left 04/29/2011 380.10 Otitis Externa Left 04/29/2011 380.10 Otitis Externa Left 04/29/2011 STEPHAN DE LEON DO K 380.10 Otitis Externa Left 04/29/2011 HALEY CASTILLO STEPHAN K 380.10 Otitis Externa Left 04/29/2011 DE LEON DO, STEPHAN K 380.10 Otitis Externa Left 04/29/2011 DE LEON DO, STEPHAN K 380.10 Otitis Externa Left 04/29/2011 DE LEON DO, STEPHAN K 380.10 Otitis Externa Left 04/29/2011 DE LEON DO, STEPHAN K 380.10 Otitis Externa Left 04/29/2011 DE LEON DO, STEPHAN K 380.10 Otitis Externa Left 04/29/2011 DE LEON DO, STEPHAN K 380.10 Otitis Externa Left 04/29/2011 DE LEON DO, STEPHAN K 380.10 Otitis Externa Left 04/29/2011 DE LEON DO, STEPHAN K 380.10 Otitis Externa Left 12/17/2011 DE LEON DO, STEPHAN K 380.4 CERUMEN IMPACTION 12/17/2011 DE LEON DO, STEPHAN K 382.9 Unspecified Otitis Media 12/17/2011 DE LEON DO, STEPHAN K 380.4 CERUMEN IMPACTION 12/17/2011 DE LEON DO, STEPHAN K 382.9 Unspecified Otitis Media 12/17/2011 DE LEON DO, STEPHAN K 380.4 CERUMEN IMPACTION 12/17/2011 DE LEON DO, STEPHAN K 382.9 Unspecified Otitis Media 12/17/2011 DE LEON DO, STEPHAN K 380.4 CERUMEN IMPACTION 12/17/2011 DE LEON DO, STEPHAN K 382.9 Unspecified Otitis Media 12/17/2011 380.4 CERUMEN IMPACTION 12/17/2011 382.9 Unspecified Otitis Media 12/17/2011 380.4 CERUMEN IMPACTION 12/17/2011 382.9 Unspecified Otitis Media 12/17/2011 380.4 Cerumen Impaction 12/17/2011 382.9 Unspecified Otitis Media 12/17/2011 DE LEON DO, STEPHAN K 380.4 Cerumen Impaction 12/17/2011 DE LEON DO, STEPHAN K 382.9 Unspecified Otitis Media 12/17/2011 DE LEON DO, STEPHAN K 380.4 Cerumen Impaction 12/17/2011 DE LEON DO, STEPHAN K 382.9 Unspecified Otitis Media 12/17/2011 DE LEON DO, STEPHAN K 380.4 Cerumen Impaction 12/17/2011 DE LEON DO, STEPHAN K 382.9 Unspecified Otitis Media 12/17/2011 DE LEON DO, STEPHAN K 380.4 Cerumen Impaction 12/17/2011 DE LEON DO, STEPHAN K 382.9 Unspecified Otitis Media 12/17/2011 DE LEON DO, STEPHAN K 380.4 Cerumen Impaction 12/17/2011 DE LEON DO, STEPHAN K 382.9 Unspecified Otitis Media 12/17/2011 DE LEON DO, STEPHAN K 380.4 Cerumen Impaction 12/17/2011 DE LEON DO, STEPHAN K 382.9 Unspecified Otitis Media 12/17/2011 DE LEON DO, STEPHAN K 380.4 Cerumen Impaction 12/17/2011 DE LEON DO, STEPHAN K 382.9 Unspecified Otitis Media 12/17/2011 DE LEON DO, STEPHAN K 380.4 Cerumen Impaction 12/17/2011 DE LEON DO, STEPHAN K 382.9 Unspecified Otitis Media 12/17/2011 DE LEON DO, STEPHAN K 380.4 Cerumen Impaction 12/17/2011 DE LEON DO, STEPHAN K 382.9 Unspecified Otitis Media 12/17/2011 DE LEON DO, STEPHAN K 380.4 Cerumen Impaction 12/17/2011 DE LEON DO, STEPHAN K 382.9 Unspecified Otitis Media 12/18/2011 DE LEON DO, STEPHAN K 275.42 HYPERCALCEMIA 12/18/2011 DE LEON DO, STEPHAN K 275.42 HYPERCALCEMIA 12/18/2011 DE LEON DO, STEPHAN K 275.42 HYPERCALCEMIA 12/18/2011 DE LEON DO, STEPHAN K 275.42 HYPERCALCEMIA 12/18/2011 275.42 HYPERCALCEMIA 12/18/2011 275.42 HYPERCALCEMIA 12/18/2011 275.42 HYPERCALCEMIA 12/18/2011 DE LEON DO, STEPHAN K 275.42 HYPERCALCEMIA 12/18/2011 DE LEON DO, STEPHAN K 275.42 HYPERCALCEMIA 12/18/2011 DE LEON DO, STEPHAN K 275.42 HYPERCALCEMIA 12/18/2011 DE LEON DO, STEPHAN K 275.42 HYPERCALCEMIA 12/18/2011 DE LEON DO, STEPHAN K 275.42 HYPERCALCEMIA 12/18/2011 DE LEON DO, STEPHAN K 275.42 HYPERCALCEMIA 12/18/2011 DE LEON DO, STEPHAN K 275.42 HYPERCALCEMIA 12/18/2011 DE LEON DO, STEPHAN K 275.42 HYPERCALCEMIA 12/18/2011 DE LEON DO, STEPHAN K 275.42 HYPERCALCEMIA 12/18/2011 DE LEON DO, STEPHAN K 275.42 HYPERCALCEMIA 02/28/2012 DE LEON DO, STEPHAN K 381.81 EUSTACHIAN TUBE DYSFUNCTION 02/28/2012 DE LEON DO, STEPHAN K 382.9 OTITIS MEDIA 02/28/2012 DE LEON DO, STEPHAN K 388.70 EARACHE 02/28/2012 DE LEON DO, STEPHAN K 381.81 EUSTACHIAN TUBE DYSFUNCTION 02/28/2012 DE LEON DO, STEPHAN K 382.9 OTITIS MEDIA 02/28/2012 DE LEON DO, STEPHAN K 388.70 EARACHE 02/28/2012 DE LEON DO, STEPHAN K 381.81 EUSTACHIAN TUBE DYSFUNCTION 02/28/2012 DE LEON DO, STEPHAN K 382.9 OTITIS MEDIA 02/28/2012 DE LEON DO, STEPHAN K 388.70 EARACHE 02/28/2012 DE LEON DO, STEPHAN K 381.81 EUSTACHIAN TUBE DYSFUNCTION 02/28/2012 DE LEON DO, STEPHAN K 382.9 OTITIS MEDIA 02/28/2012 DE LEON DO, STEPHAN K 388.70 EARACHE 02/28/2012 381.81 EUSTACHIAN TUBE DYSFUNCTION 02/28/2012 382.9 OTITIS MEDIA 02/28/2012 388.70 EARACHE 02/28/2012 381.81 EUSTACHIAN TUBE DYSFUNCTION 02/28/2012 382.9 OTITIS MEDIA 02/28/2012 388.70 EARACHE 02/28/2012 381.81 EUSTACHIAN TUBE DYSFUNCTION 02/28/2012 382.9 Otitis Media 02/28/2012 388.70 Earache 02/28/2012 DE LEON DO, STEPHAN K 381.81 EUSTACHIAN TUBE DYSFUNCTION 02/28/2012 DE LEON DO, STEPHAN K 382.9 Otitis Media 02/28/2012 DE LEON DO, STEPHAN K 388.70 Earache 02/28/2012 DE LEON DO, STEPHAN K 381.81 EUSTACHIAN TUBE DYSFUNCTION 02/28/2012 DE LEON DO, STEPHAN K 382.9 Otitis Media 02/28/2012 DE LEON DO, STEPHAN K 388.70 Earache 02/28/2012 DE LEON DO, STEPHAN K 381.81 EUSTACHIAN TUBE DYSFUNCTION 02/28/2012 DE LEON DO, STEPHAN K 382.9 Otitis Media 02/28/2012 DE LEON DO, STEPHAN K 388.70 Earache 02/28/2012 DE LEON DO, STEPHAN K 381.81 EUSTACHIAN TUBE DYSFUNCTION 02/28/2012 DE LEON DO, STEPHAN K 382.9 Otitis Media 02/28/2012 DE LEON DO, STEPHAN K 388.70 Earache 02/28/2012 DE LEON DO, STEPHAN K 381.81 EUSTACHIAN TUBE DYSFUNCTION 02/28/2012 DE LEON DO, STEPHAN K 382.9 Otitis Media 02/28/2012 DE LEON DO, STEPHAN K 388.70 Earache 02/28/2012 DE LEON DO, STEPHAN K 381.81 EUSTACHIAN TUBE DYSFUNCTION 02/28/2012 DE LEON DO, STEPHAN K 382.9 Otitis Media 02/28/2012 DE LEON DO, STEPHAN K 388.70 Earache 02/28/2012 DE LEON DO, STEPHAN K 381.81 EUSTACHIAN TUBE DYSFUNCTION 02/28/2012 DE LEON DO, STEPHAN K 382.9 Otitis Media 02/28/2012 DE LEON DO, STEPHAN K 388.70 Earache 02/28/2012 DE LEON DO, STEPHAN K 381.81 EUSTACHIAN TUBE DYSFUNCTION 02/28/2012 DE LEON DO, STEPHAN K 382.9 Otitis Media 02/28/2012 DE LEON DO, STEPHAN K 388.70 Earache 02/28/2012 DE LEON DO, STEPHAN K 381.81 EUSTACHIAN TUBE DYSFUNCTION 02/28/2012 DE LEON DO, STEPHAN K 382.9 Otitis Media 02/28/2012 DE LEON DO, STEPHAN K 388.70 Earache 02/28/2012 DE LEON DO, STEPHAN K 381.81 EUSTACHIAN TUBE DYSFUNCTION 02/28/2012 DE LEON DO, STEPHAN K 382.9 Otitis Media 02/28/2012 DE LEON DO, STEPHAN K 388.70 Earache 03/06/2012 DE LEON DO, STEPHAN K 384.20 PERFORATION OF TYMPANIC MEMBRANE UNSPECIFIED 03/06/2012 DE LEON DO, STEPHAN K 384.20 PERFORATION OF TYMPANIC MEMBRANE UNSPECIFIED 03/06/2012 DE LEON DO, STEPHAN K 384.20 PERFORATION OF TYMPANIC MEMBRANE UNSPECIFIED 03/06/2012 DE LEON DO, STEPHAN K 384.20 PERFORATION OF TYMPANIC MEMBRANE UNSPECIFIED 03/06/2012 384.20 PERFORATION OF TYMPANIC MEMBRANE UNSPECIFIED 03/06/2012 384.20 PERFORATION OF TYMPANIC MEMBRANE UNSPECIFIED 03/06/2012 384.20 Perforation Of Tympanic Membrane Unspecified 03/06/2012 DE LEON DO, STEPHAN K 384.20 Perforation Of Tympanic Membrane Unspecified 03/06/2012 DE LEON DO, STEPHAN K 384.20 Perforation Of Tympanic Membrane Unspecified 03/06/2012 DE LEON DO, STEPHAN K 384.20 Perforation Of Tympanic Membrane Unspecified 03/06/2012 DE LEON DO, STEPHAN K 384.20 Perforation Of Tympanic Membrane Unspecified 03/06/2012 DE LEON DO, STEPHAN K 384.20 Perforation Of Tympanic Membrane Unspecified 03/06/2012 DE LEON DO, STEPHAN K 384.20 Perforation Of Tympanic Membrane Unspecified 03/06/2012 DE LEON DO, STEPHAN K 384.20 Perforation Of Tympanic Membrane Unspecified 03/06/2012 DE LEON DO, STEPHAN K 384.20 Perforation Of Tympanic Membrane Unspecified 03/06/2012 DE LEON DO, STEPHAN K 384.20 Perforation Of Tympanic Membrane Unspecified 03/06/2012 DE LEON DO, STEPHAN K 384.20 Perforation Of Tympanic Membrane Unspecified 06/03/2012 585.9 CHRONIC KIDNEY DISEASE, UNSPECIFIED 06/03/2012 DE LEON DO, STEPHAN K 585.9 CHRONIC KIDNEY DISEASE, UNSPECIFIED 06/03/2012 DE LEON DO, STEPHAN K 585.9 CHRONIC KIDNEY DISEASE, UNSPECIFIED 06/03/2012 DE LEON DO, STEPHAN K 585.9 CHRONIC KIDNEY DISEASE, UNSPECIFIED 06/03/2012 DE LEON DO, STEPHAN K 585.9 CHRONIC KIDNEY DISEASE, UNSPECIFIED 06/03/2012 DE LEON DO, STEPHAN K 585.9 CHRONIC KIDNEY DISEASE, UNSPECIFIED 06/03/2012 DE LEON DO, STEPHAN K 585.9 CHRONIC KIDNEY DISEASE, UNSPECIFIED 06/03/2012 DE LEON DO, STEPHAN K 585.9 CHRONIC KIDNEY DISEASE, UNSPECIFIED 06/03/2012 DE LEON DO, STEPHAN K 585.9 CHRONIC KIDNEY DISEASE, UNSPECIFIED 06/03/2012 DE LEON DO, STEPHAN K 585.9 CHRONIC KIDNEY DISEASE, UNSPECIFIED 06/03/2012 DE LEON DO, STEPHAN K 585.9 CHRONIC KIDNEY DISEASE, UNSPECIFIED 12/07/2012 DERECK LEZAMA, MEDINA Weir Ot 112.0 THRUSH 12/28/2012 RAVI LEZAMA, SONG Damon Ot 593.9 RENAL URETERAL DIS NOS 04/08/2013 DE LEON DO, STEPHAN K 786.07 WHEEZING 04/08/2013 DE LEON DO, STEPHAN K 786.07 WHEEZING 04/08/2013 DE LEON DO, STEPHAN K 786.07 WHEEZING 04/08/2013 DE LEON DO, STEPHAN K 786.07 WHEEZING 04/08/2013 DE LEON DO, STEPHAN K 786.07 WHEEZING 04/20/2013 RAVI LEZAMA, SONG Damon Ot 593.9 RENAL URETERAL DIS NOS 12/08/2017 RAVI LEZAMA, SONG Damon Ot 593.9 RENAL URETERAL DIS NOS 12/08/2017 Ot 593.9 RENAL URETERAL DIS NOS 12/08/2017 Ot 593.9 RENAL URETERAL DIS NOS 12/13/2017 SANDERS DO, AMIRAH Ot D63.1 ANEMIA IN CHRONIC KIDNEY DISEASE 12/13/2017 SANDERS DO, AMIRAH Ot E78.00 PURE HYPERCHOLESTEROLEMIA, UNSPECIFIED 12/13/2017 SANDERS DO, AMIRAH Ot F20.9 SCHIZOPHRENIA, UNSPECIFIED 12/13/2017 SANDERS DO, AMIRAH Ot F31.9 BIPOLAR DISORDER, UNSPECIFIED 12/13/2017 SANDERS DO, AMIRAH Ot F41.9 ANXIETY DISORDER, UNSPECIFIED 12/13/2017 SANDERS DO, AMIRAH Ot G47.9 SLEEP DISORDER, UNSPECIFIED 12/13/2017 SANDERS DO, AMIRAH Ot G62.9 POLYNEUROPATHY, UNSPECIFIED 12/13/2017 SANDERS DO, AMIRAH Ot I12.9 HYPERTENSIVE CHRONIC KIDNEY DISEASE W ST 12/13/2017 SANDERS DO, AMIRAH Ot J34.9 UNSPECIFIED DISORDER OF NOSE AND NASAL S 12/13/2017 SANDERS DO, AMIRAH Ot 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, STAGE 2 12/13/2017 SANDERS DO, AMIRAH Ot M19.91 PRIMARY OSTEOARTHRITIS, UNSPECIFIED SITE 12/13/2017 SANDERS DO, AMIRAH Ot M54.9 DORSALGIA, UNSPECIFIED 12/13/2017 SANDERS DO, AMRIAH Ot N17.9 ACUTE KIDNEY FAILURE, UNSPECIFIED 12/13/2017 SANDERS DO, AMIRAH Ot N18.3 CHRONIC KIDNEY DISEASE, STAGE 3 (MODERAT 12/13/2017 SANDERS DO, AMIRAH Ot N40.1 BENIGN PROSTATIC HYPERPLASIA WITH LOWER 12/13/2017 SANDERS DO, AMIRAH Ot R33.9 RETENTION OF URINE, UNSPECIFIED 12/13/2017 SANDERS DO, AMIRAH Ot R41.0 DISORIENTATION, UNSPECIFIED 12/13/2017 SANDERS DO, AMIRAH Ot R50.9 FEVER, UNSPECIFIED 12/13/2017 SANDERS DO, AMIRAH Ot R79.1 ABNORMAL COAGULATION PROFILE 12/13/2017 SANDERS DO, AMIRAH Ot S60.512A ABRASION OF LEFT HAND, INITIAL ENCOUNTER 12/13/2017 TOMMY CASTILLO AMIRAH Ot S80.211A ABRASION, RIGHT KNEE, INITIAL ENCOUNTER 12/13/2017 TOMMY CASTILLO AMIRAH Ot S80.212A ABRASION, LEFT KNEE, INITIAL ENCOUNTER 12/13/2017 TOMMY CASTILLO AMIRAH Ot T14.8XXS OTHER INJURY OF UNSPECIFIED BODY REGION, 12/13/2017 TOMMY CASTILLO AMIRAH Ot T79.6XXA TRAUMATIC ISCHEMIA OF MUSCLE, INITIAL EN 12/13/2017 TOMMY CASTILLO AMIRAH Ot W19.XXXA UNSPECIFIED FALL, INITIAL ENCOUNTER 12/13/2017 TOMMY CASTILLO AMIRAH Ot Y92.[address] OF OCCURRENCE OF 12/13/2017 TOMMY CASTILLO AMIRAH Ot Z66 DO NOT RESUSCITATE 12/13/2017 TOMMY CASTILLO AMIRAH Ot Z87.891 PERSONAL HISTORY OF NICOTINE DEPENDENCE 12/13/2017 TOMMY CASTILLO AMIRAH Ot Z90.49 ACQUIRED ABSENCE OF OTHER SPECIFIED PART 12/14/2017 TOMMY CASTILLO AMIRAH Ot D63.1 ANEMIA IN CHRONIC KIDNEY DISEASE 12/14/2017 TOMMY CASTILLO AMIRAH Ot E78.00 PURE HYPERCHOLESTEROLEMIA, UNSPECIFIED 12/14/2017 TOMMY CASTILLO AMIRAH Ot F20.9 SCHIZOPHRENIA, UNSPECIFIED 12/14/2017 TOMMY CASTILLO AMIRAH Ot F31.9 BIPOLAR DISORDER, UNSPECIFIED 12/14/2017 TOMMY CASTILLO AMIRAH Ot F41.9 ANXIETY DISORDER, UNSPECIFIED 12/14/2017 TOMMY CASTILLO AMIRAH Ot G47.9 SLEEP DISORDER, UNSPECIFIED 12/14/2017 TOMMY CASTILLO AMIRAH Ot G62.9 POLYNEUROPATHY, UNSPECIFIED 12/14/2017 TOMMY CASTILLO AMIRAH Ot I12.9 HYPERTENSIVE CHRONIC KIDNEY DISEASE W ST 12/14/2017 TOMMY CASTILLO AMIRAH Ot J34.9 UNSPECIFIED DISORDER OF NOSE AND NASAL S 12/14/2017 TOMMY CASTILLO AMIRAH Ot 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, STAGE 2 12/14/2017 TOMMY CASTILLO AMIRAH Ot M19.91 PRIMARY OSTEOARTHRITIS, UNSPECIFIED SITE 12/14/2017 TOMMY CASTILLO AMIRAH Ot M54.9 DORSALGIA, UNSPECIFIED 12/14/2017 TOMMY CASTILLO AMIRAH Ot N17.9 ACUTE KIDNEY FAILURE, UNSPECIFIED 12/14/2017 SANDERS DO, AMIRAH Ot N18.3 CHRONIC KIDNEY DISEASE, STAGE 3 (MODERAT 12/14/2017 SANDERS DO, AMIRAH Ot N40.1 BENIGN PROSTATIC HYPERPLASIA WITH LOWER 12/14/2017 SANDERS DO, AMIRAH Ot R33.9 RETENTION OF URINE, UNSPECIFIED 12/14/2017 SANDERS DO, AMIRAH Ot R41.0 DISORIENTATION, UNSPECIFIED 12/14/2017 SANDERS DO, AMIRAH Ot R50.9 FEVER, UNSPECIFIED 12/14/2017 SANDERS DO, AMIRAH Ot R79.1 ABNORMAL COAGULATION PROFILE 12/14/2017 SANDERS DO, AMIRAH Ot S60.512A ABRASION OF LEFT HAND, INITIAL ENCOUNTER 12/14/2017 SANDERS DO, AMIRAH Ot S80.211A ABRASION, RIGHT KNEE, INITIAL ENCOUNTER 12/14/2017 SANDERS DO, AMIRAH Ot S80.212A ABRASION, LEFT KNEE, INITIAL ENCOUNTER 12/14/2017 SANDERS DO, AMIRAH Ot T14.8XXS OTHER INJURY OF UNSPECIFIED BODY REGION, 12/14/2017 SANDERS DO, AMIRAH Ot T79.6XXA TRAUMATIC ISCHEMIA OF MUSCLE, INITIAL EN 12/14/2017 SANDERS DO, AMIRAH Ot W19.XXXA UNSPECIFIED FALL, INITIAL ENCOUNTER 12/14/2017 SANDERS DO, AMIRAH Ot Y92.[address] OF OCCURRENCE OF 12/14/2017 SANDERS DO, AMIRAH Ot Z66 DO NOT RESUSCITATE 12/14/2017 SANDERS DO, AMIRAH Ot Z87.891 PERSONAL HISTORY OF NICOTINE DEPENDENCE 12/14/2017 SANDERS DO, AMIRAH Ot Z90.49 ACQUIRED ABSENCE OF OTHER SPECIFIED PART 12/15/2017 SANDERS DO, AMIRAH Ot D63.1 ANEMIA IN CHRONIC KIDNEY DISEASE 12/15/2017 SANDERS DO, AMIRAH Ot E78.00 PURE HYPERCHOLESTEROLEMIA, UNSPECIFIED 12/15/2017 SANDERS DO, AMIRAH Ot F20.9 SCHIZOPHRENIA, UNSPECIFIED 12/15/2017 SANDERS DO, AMRIAH Ot F31.9 BIPOLAR DISORDER, UNSPECIFIED 12/15/2017 SANDERS DO, AMIRAH Ot F41.9 ANXIETY DISORDER, UNSPECIFIED 12/15/2017 SANDERS DO, AMIRAH Ot G47.9 SLEEP DISORDER, UNSPECIFIED 12/15/2017 SANDERS DO, AMIRAH Ot G62.9 POLYNEUROPATHY, UNSPECIFIED 12/15/2017 SANDERS DO, AMIRAH Ot I12.9 HYPERTENSIVE CHRONIC KIDNEY DISEASE W ST 12/15/2017 TOMMY CASTILLO AMIRAH Ot J34.9 UNSPECIFIED DISORDER OF NOSE AND NASAL S 12/15/2017 TOMMY CASTILLO AMIRAH Ot 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, STAGE 2 12/15/2017 SANDERS DO AMIRAH Ot M19.91 PRIMARY OSTEOARTHRITIS, UNSPECIFIED SITE 12/15/2017 TOMMY CASTILLO AMIRAH Ot M54.9 DORSALGIA, UNSPECIFIED 12/15/2017 SANDERS DO AMIRAH Ot N17.9 ACUTE KIDNEY FAILURE, UNSPECIFIED 12/15/2017 SANDERS DO, AMIRAH Ot N18.3 CHRONIC KIDNEY DISEASE, STAGE 3 (MODERAT 12/15/2017 SANDERS DO AMIRAH Ot N40.1 BENIGN PROSTATIC HYPERPLASIA WITH LOWER 12/15/2017 SANDERS DO AMIRAH Ot R33.9 RETENTION OF URINE, UNSPECIFIED 12/15/2017 TOMMY CASTILLO AMIRAH Ot R41.0 DISORIENTATION, UNSPECIFIED 12/15/2017 TOMMY CASTILLO AMIRAH Ot R50.9 FEVER, UNSPECIFIED 12/15/2017 SANDERS DO AMIRAH Ot R79.1 ABNORMAL COAGULATION PROFILE 12/15/2017 TOMMY CASTILLO AMIRAH Ot S60.512A ABRASION OF LEFT HAND, INITIAL ENCOUNTER 12/15/2017 TOMMY CASTILLO AMIRAH Ot S80.211A ABRASION, RIGHT KNEE, INITIAL ENCOUNTER 12/15/2017 TOMMY CASTILLO AMIRAH Ot S80.212A ABRASION, LEFT KNEE, INITIAL ENCOUNTER 12/15/2017 TOMMY CASTILLO AMIRAH Ot T14.8XXS OTHER INJURY OF UNSPECIFIED BODY REGION, 12/15/2017 TOMMY CASTILLO AMIRAH Ot T79.6XXA TRAUMATIC ISCHEMIA OF MUSCLE, INITIAL EN 12/15/2017 TOMMY CASTILLO AMIRAH Ot W19.XXXA UNSPECIFIED FALL, INITIAL ENCOUNTER 12/15/2017 TOMMY CASTILLO AMIRAH Ot Y92.[address] OF OCCURRENCE OF 12/15/2017 TOMMY CASTILLO AMIRAH Ot Z66 DO NOT RESUSCITATE 12/15/2017 TOMMY CASTILLO AMIRAH Ot Z87.891 PERSONAL HISTORY OF NICOTINE DEPENDENCE 12/15/2017 SANDERS DO, AMIRAH Ot Z90.49 ACQUIRED ABSENCE OF OTHER SPECIFIED PART 12/15/2017 SANDERS DO, AMIRAH Ot D63.1 ANEMIA IN CHRONIC KIDNEY DISEASE 12/15/2017 SANDERS DO, AMIRAH Ot E78.00 PURE HYPERCHOLESTEROLEMIA, UNSPECIFIED 12/15/2017 SANDERS DO, AMIRAH Ot E86.0 DEHYDRATION 12/15/2017 SANDERS DO, AMIRAH Ot F20.9 SCHIZOPHRENIA, UNSPECIFIED 12/15/2017 SANDERS DO, AMIRAH Ot F31.9 BIPOLAR DISORDER, UNSPECIFIED 12/15/2017 SANDERS DO, AMIRAH Ot F41.9 ANXIETY DISORDER, UNSPECIFIED 12/15/2017 SANDERS DO, AMIRAH Ot G47.9 SLEEP DISORDER, UNSPECIFIED 12/15/2017 SANDERS DO, AMIRAH Ot G62.9 POLYNEUROPATHY, UNSPECIFIED 12/15/2017 SANDERS DO, AMIRAH Ot G93.41 METABOLIC ENCEPHALOPATHY 12/15/2017 SANDERS DO, AMIRAH Ot I12.9 HYPERTENSIVE CHRONIC KIDNEY DISEASE W ST 12/15/2017 SANDERS DO, MAIRAH Ot 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, STAGE 2 12/15/2017 SANDERS DO, AMIRAH Ot M19.91 PRIMARY OSTEOARTHRITIS, UNSPECIFIED SITE 12/15/2017 SANDERS DO, AMIRAH Ot M54.9 DORSALGIA, UNSPECIFIED 12/15/2017 SANDERS DO, AMIRAH Ot N17.9 ACUTE KIDNEY FAILURE, UNSPECIFIED 12/15/2017 SANDERS DO, AMIRAH Ot N18.3 CHRONIC KIDNEY DISEASE, STAGE 3 (MODERAT 12/15/2017 SANDERS DO, AMIRAH Ot N39.0 URINARY TRACT INFECTION, SITE NOT SPECIF 12/15/2017 SANDERS DO, AMIRAH Ot N40.1 BENIGN PROSTATIC HYPERPLASIA WITH LOWER 12/15/2017 SANDERS DO, AMIRAH Ot R33.9 RETENTION OF URINE, UNSPECIFIED 12/15/2017 SANDERS DO, AMIRAH Ot R64 CACHEXIA 12/15/2017 SANDERS DO, AMIRAH Ot R79.1 ABNORMAL COAGULATION PROFILE 12/15/2017 SANDERS DO, AMIRAH Ot S60.512A ABRASION OF LEFT HAND, INITIAL ENCOUNTER 12/15/2017 SANDERS DO, AMIRAH Ot S80.211A ABRASION, RIGHT KNEE, INITIAL ENCOUNTER 12/15/2017 SANDERS DO, AMIRAH Ot S80.212A ABRASION, LEFT KNEE, INITIAL ENCOUNTER 12/15/2017 AMIRAH SANDERS DO Ot T14.8XXS OTHER INJURY OF UNSPECIFIED BODY REGION, 12/15/2017 AMIRAH SANDERS DO Ot T79.6XXA TRAUMATIC ISCHEMIA OF MUSCLE, INITIAL EN 12/15/2017 AMIRAH SANDERS DO Ot W19.XXXA UNSPECIFIED FALL, INITIAL ENCOUNTER 12/15/2017 AMIRAH SANDERS DO Ot Y92.[address] OF OCCURRENCE OF 12/15/2017 AMIRAH SANDERS DO Ot Z66 DO NOT RESUSCITATE 12/15/2017 AMIRAH SANDERS DO Ot Z87.891 PERSONAL HISTORY OF NICOTINE DEPENDENCE 12/15/2017 AMIRAH SANDERS DO Ot Z90.49 ACQUIRED ABSENCE OF OTHER SPECIFIED PART 05/19/2018 Ot 307.20 05/19/2018 Ot 728.85 05/19/2018 Ot 729.5 05/19/2018 Ot 564.00 05/19/2018 Ot 753.10 05/19/2018 Ot 789.1 05/19/2018 Ot 789.2 05/19/2018 Ot 790.29 05/19/2018 Ot 790.4 05/19/2018 Ot 257.2 TESTICULAR HYPOFUNC NEC 05/19/2018 Ot 271.9 DIS CARBOHYDR METAB NOS 05/19/2018 Ot 272.4 HYPERLIPIDEMIA NEC/NOS 05/19/2018 Ot 338.4 CHRONIC PAIN SYNDROME 05/19/2018 Ot 401.1 BENIGN HYPERTENSION 05/19/2018 Ot 429.3 CARDIOMEGALY 05/19/2018 Ot 785.2 CARDIAC MURMURS NEC 05/19/2018 Ot 785.9 CARDIOVAS SYS SYMP NEC 05/19/2018 Ot V58.69 OTH MED,LT,CURRENT USE 05/19/2018 Ot 401.1 BENIGN HYPERTENSION 05/19/2018 Ot 593.9 RENAL URETERAL DIS NOS 05/19/2018 Ot 753.10 CYSTIC KIDNEY DISEASE, UNSPECIFIED 05/19/2018 Ot 275.42 HYPERCALCEMIA 05/19/2018 Ot 403.10 HYPTNSV CHR KID DIS, BENIGN, W CHR KD ST 05/19/2018 Ot 585.9 CHRONIC KIDNEY DISEASE, UNSPECIFIED 05/19/2018 RAVI LEZAMA, SONG Damon Ot 593.9 RENAL URETERAL DIS NOS 05/19/2018 Ot 593.9 RENAL URETERAL DIS NOS 05/19/2018 Ot 593.9 RENAL URETERAL DIS NOS Procedures Code Description Performed By Performed On 38.93 VENOUS CATHETERIZATION NEC 02/06/2008 45.75 OPEN AND OTHER LEFT HEMICOLECTOMY 02/06/2008 54.21 LAPAROSCOPY 11/22/2010 Yelitza Lainez 02/19/2012 58926 ROUTINE VENIPUNCTURE 05/11/2012 08393 CMP 05/11/2012 [id number] GFR CALC (RESULT ONLY) 05/11/2012 12315 LIPID PANEL 05/11/2012 00173 CALCIUM IONIZED 05/12/2012 95267 VITAMIN D 25-HYDROXY (D2,D3, TOTAL) 05/12/2012 43669 A1C (RML) 05/12/2012 [id number] CALCIUM (RESULT ONLY) 05/12/2012 3037153 PTH INTACT BILLY (RESULT ONLY) 05/12/2012 90171 PTH (intact) 05/26/2012 NEPHR Erick, Barbie 06/09/2012 85383 US RENAL ULTRASOUND, COMP 06/10/2012 16203 ROUTINE VENIPUNCTURE 06/17/2012 61690 LIVER PANEL (LFT) 06/17/2012 [id number] GFR CALC (RESULT ONLY) 06/17/2012 38923 LIPID PANEL 06/17/2012 17274 CBC 06/17/2012 46125 RENAL PROFILE 06/17/2012 58473 UA W/ CULTURE IF INDICATED 07/27/2012 PRO/CRE URINE PROTEIN TO CREATNINE RATIO 07/27/2012 89772 URINE DRUG SCREEN (IN-HOUSE) 02/09/2013 68702 XRAY CHEST 2 VIEW 04/08/2013 67951 ROUTINE VENIPUNCTURE 08/20/2013 53158 CBC 08/20/2013 [id number] GFR CALC (RESULT ONLY) 08/20/2013 09914 CMP 08/20/2013 00116 LIPID PANEL 08/20/2013 38648 ROUTINE VENIPUNCTURE 02/11/2014 09508 CMP 02/11/2014 [id number] GFR CALC (RESULT ONLY) 02/11/2014 68945 ROUTINE VENIPUNCTURE 08/02/2014 06863 A1C (IN-HOUSE) 08/02/2014 [id number] GFR CALC (RESULT ONLY) 08/02/2014 67533 CMP 08/02/2014 16193 LIPID PANEL 08/02/2014 [id number] INSPECTION OF BLADDER, ENDO 12/12/2017 Results Test Result Range CMP - 08/25/17 08:52 GLUCOSE 86 mg/dL 65-99 UREA NITROGEN (BUN) 17 mg/dL 7-25 CREATININE 1.42 mg/dL 0.70-1.25 eGFR NON-AFR. BOLIVIAN 51 mL/min/1.73m2 > OR=60 eGFR 59 mL/min/1.73m2 > OR=60 BUN/CREATININE RATIO 12 (calc) 6-22 SODIUM 139 mmol/L 135-146 POTASSIUM 4.9 mmol/L 3.5-5.3 CHLORIDE 102 mmol/L 98-110 CARBON DIOXIDE 28 mmol/L 20-31 CALCIUM 9.4 mg/dL 8.6-10.3 PROTEIN, TOTAL 6.9 g/dL 6.1-8.1 ALBUMIN 4.1 g/dL 3.6-5.1 GLOBULIN 2.8 g/dL (calc) 1.9-3.7 ALBUMIN/GLOBULIN RATIO 1.5 (calc) 1.0-2.5 BILIRUBIN, TOTAL 0.3 mg/dL 0.2-1.2 ALKALINE PHOSPHATASE 60 U/L 40-115 AST 15 U/L 10-35 ALT 11 U/L 9-46 Bacterial blood culture - 12/08/17 06:50 Bacterial blood culture NG NRG Bacterial blood culture - 12/08/17 07:14 Bacterial blood culture NG NRG ABO+Rh group - 12/09/17 17:10 ABO+Rh group AP NRG TRANSFUSION REACTION BB TESTS - 12/09/17 17:10 TRANSFUSION RX BLOOD COMPONENT A POS FFP NR [id number] NRG [id number] OK NRG [id number] NORMAL NRG Bacterial blood culture NOT INDICATED NRG Serum ragweed IgE antibody assay NO CHANGE NRG Patient symptomsSpost transfusion reaction FEVER NRG AppearanceSpost transfusion reaction NEGATIVE NRG Appearance NEGATIVE NRG Direct antiglobulin test.poly specific reagentSpos NEGATIVE NRG Direct antiglobulin test.poly specific reagentSpos NEGATIVE NRG Direct antiglobulin test.poly specific reagent NOT INDICATED NRG Direct antiglobulin test.IgG specific reagent NOT INDICATED NRG Direct antiglobulin test.complement C3 specific re NOT INDICATED NRG Transfusion reaction SCANNED TO EMR NRG Methicillin resistant Staphylococcus aureus (MRSA) screening culture - 12/11/17 17:50 Methicillin resistant Staphylococcus aureus (MRSA) screening culture NEG NRG C DIFFICILE AG + TOXIN A/B. - 12/12/17 03:10 RESULTS NEGATIVE FOR ANTIGEN AND TOXIN A/B [facility] [id number] - 12/12/17 03:10 Stool bacteria identification by culture - 12/12/17 03:10 NEGATIVE FOR 0157 NEGATIVE FOR E COLI 0157 NRG NEGATIVE FOR CAMPY NEGATIVE FOR CAMPYLOBACTER NRG NEGATIVE FOR SHIGELLA NEGATIVE FOR SHIGELLA NRG NEGATIVE FOR SALMONELLA NEGATIVE FOR SALMONELLA NRG Bacterial blood culture - 12/12/17 07:30 Bacterial blood culture NG NRG Blood lactic acid measurement (moles/volume) - 12/12/17 07:35 Blood lactic acid measurement (moles/volume) 0.58 mmol/L 0.50- 2.00 Bacterial blood culture - 12/12/17 07:35 Bacterial blood culture NG NRG Bacterial blood culture - 12/12/17 07:45 Bacterial blood culture NG NRG Complete blood count (CBC) with automated white blood cell (WBC) differential - 12/13/17 05:10 Blood leukocytes automated count (number/volume) 4.8 10*3/uL 4.3-11.0 Blood erythrocytes automated count (number/volume) 2.67 10*6/uL 4.35-5.85 Venous blood hemoglobin measurement (mass/volume) 7.3 g/dL 13.3-17.7 Blood hematocrit (volume fraction) 23 % 40-54 Automated erythrocyte mean corpuscular volume 84 [foz_us] 80-99 Automated erythrocyte mean corpuscular hemoglobin (mass per erythrocyte) 27 pg 25-34 Automated erythrocyte mean corpuscular hemoglobin concentration measurement (mass/volume) 32 g/dL 32-36 Automated erythrocyte distribution width ratio 16.0 % 10.0- 14.5 Automated blood platelet count (count/volume) 440 10*3/uL 130-400 Automated blood platelet mean volume measurement 8.4 [foz_us] 7.4-10.4 Automated blood neutrophils/100 leukocytes 63 % 42-75 Automated blood lymphocytes/100 leukocytes 14 % 12-44 Blood monocytes/100 leukocytes 17 % 0-12 Automated blood eosinophils/100 leukocytes 6 % 0-10 Automated blood basophils/100 leukocytes 0 % 0-10 Blood neutrophils automated count (number/volume) 3.0 10*3 1.8-7.8 Blood lymphocytes automated count (number/volume) 0.7 10*3 1.0-4.0 Blood monocytes automated count (number/volume) 0.8 10*3 0.0- 1.0 Automated eosinophil count 0.3 10*3/uL 0.0-0.3 Automated blood basophil count (count/volume) 0.0 10*3/uL 0.0-0.1 Comprehensive metabolic panel - 12/13/17 05:10 Serum or plasma sodium measurement (moles/volume) 141 mmol/L 135-145 Serum or plasma potassium measurement (moles/volume) 3.8 mmol/L 3.6-5.0 Serum or plasma chloride measurement (moles/volume) 111 mmol/L 98-107 Carbon dioxide 22 mmol/L 21-32 Serum or plasma anion gap determination (moles/volume) 8 mmol/L 5-14 Serum or plasma urea nitrogen measurement (mass/volume) 13 mg/dL 7-18 Serum or plasma creatinine measurement (mass/volume) 0.95 mg/dL 0.60-1.30 Serum or plasma urea nitrogen/creatinine mass ratio 14 NRG Serum or plasma creatinine measurement with calculation of estimated glomerular filtration rate > NRG Serum or plasma glucose measurement (mass/volume) 93 mg/dL 70-105 Serum or plasma calcium measurement (mass/volume) 8.2 mg/dL 8.5-10.1 Serum or plasma total bilirubin measurement (mass/volume) 0.3 mg/dL 0.1-1.0 Serum or plasma alkaline phosphatase measurement (enzymatic activity/volume) 46 U/L 40-136 Serum or plasma aspartate aminotransferase measurement (enzymatic activity/volume) 15 U/L 5-34 Serum or plasma alanine aminotransferase measurement (enzymatic activity/volume) 14 U/L 0-55 Serum or plasma protein measurement (mass/volume) 4.9 g/dL 6.4-8.2 Serum or plasma albumin measurement (mass/volume) 2.4 g/dL 3.2-4.5 CALCIUM CORRECTED 9.5 mg/dL 8.5-10.1 Complete urinalysis with reflex to culture - 12/13/17 10:40 Urine color determination YELLOW NRG Urine clarity determination CLEAR NRG Urine pH measurement by test strip 5 5-9 Specific gravity of urine by test strip 1.015 1.016-1.022 Urine protein assay by test strip, semi-quantitative NEGATIVE NEGATIVE Urine glucose detection by automated test strip NEGATIVE NEGATIVE Erythrocytes detection in urine sediment by light microscopy NEGATIVE NEGATIVE Urine ketones detection by automated test strip NEGATIVE NEGATIVE Urine nitrite detection by test strip NEGATIVE NEGATIVE Urine total bilirubin detection by test strip NEGATIVE NEGATIVE Urine urobilinogen measurement by automated test strip (mass/volume) NORMAL NORMAL Urine leukocyte esterase detection by dipstick 1+ NEGATIVE Automated urine sediment erythrocyte count by microscopy (number/high power field) NONE NRG Automated urine sediment leukocyte count by microscopy (number/high power field) NONE NRG Bacteria detection in urine sediment by light microscopy TRACE NRG Squamous epithelial cells detection in urine sediment by light microscopy RARE NRG Crystals detection in urine sediment by light microscopy NONE NRG Casts detection in urine sediment by light microscopy NONE NRG Mucus detection in urine sediment by light microscopy NEGATIVE NRG Complete urinalysis with reflex to culture NO NRG Vancomycin trough - 12/14/17 06:00 Vancomycin trough 13.8 ug/mL 10.0-20.0 Blood CBC with ordered manual differential panel - 12/15/17 05:31 Blood leukocytes automated count (number/volume) 6.6 10*3/uL 4.3-11.0 Blood erythrocytes automated count (number/volume) 2.73 10*6/uL 4.35-5.85 Venous blood hemoglobin measurement (mass/volume) 7.5 g/dL 13.3-17.7 Blood hematocrit (volume fraction) 23 % 40-54 Automated erythrocyte mean corpuscular volume 85 [foz_us] 80-99 Automated erythrocyte mean corpuscular hemoglobin (mass per erythrocyte) 27 pg 25-34 Automated erythrocyte mean corpuscular hemoglobin concentration measurement (mass/volume) 33 g/dL 32-36 Automated erythrocyte distribution width ratio 16.1 % 10.0- 14.5 Automated blood platelet count (count/volume) 491 10*3/uL 130-400 Automated blood platelet mean volume measurement 8.2 [foz_us] 7.4-10.4 Automated blood neutrophils/100 leukocytes 66 % 42-75 Automated blood lymphocytes/100 leukocytes 16 % 12-44 Blood monocytes/100 leukocytes 11 % NRG Automated blood eosinophils/100 leukocytes 6 % 0-10 Automated blood basophils/100 leukocytes 1 % 0-10 Blood neutrophils automated count (number/volume) 4.3 10*3 1.8-7.8 Blood lymphocytes automated count (number/volume) 1.1 10*3 1.0-4.0 Blood monocytes automated count (number/volume) 0.8 10*3 0.0- 1.0 Automated eosinophil count 0.4 10*3/uL 0.0-0.3 Automated blood basophil count (count/volume) 0.0 10*3/uL 0.0-0.1 Manual blood segmented neutrophils/100 leukocytes 52 % NRG Blood band neutrophils/100 leukocytes 13 % NRG Manual blood lymphocytes/100 leukocytes 15 % NRG Manual eosinophils/100 leukocytes in nose 9 % NRG Blood anisocytosis detection by light microscopy MODERATE NRG Blood hypochromia detection by light microscopy MARKED NRG PT panel in platelet poor plasma by coagulation assay - 12/15/17 05:31 Prothrombin time (PT) in platelet poor plasma by coagulation assay 18.0 s 12.2-14.7 INR in platelet poor plasma or blood by coagulation assay 1.5 0.8-1.4 Comprehensive metabolic panel - 12/15/17 05:31 Serum or plasma sodium measurement (moles/volume) 140 mmol/L 135-145 Serum or plasma potassium measurement (moles/volume) 3.9 mmol/L 3.6-5.0 Serum or plasma chloride measurement (moles/volume) 108 mmol/L 98-107 Carbon dioxide 26 mmol/L 21-32 Serum or plasma anion gap determination (moles/volume) 6 mmol/L 5-14 Serum or plasma urea nitrogen measurement (mass/volume) 9 mg/dL 7-18 Serum or plasma creatinine measurement (mass/volume) 0.93 mg/dL 0.60-1.30 Serum or plasma urea nitrogen/creatinine mass ratio 10 NRG Serum or plasma creatinine measurement with calculation of estimated glomerular filtration rate > NRG Serum or plasma glucose measurement (mass/volume) 82 mg/dL 70-105 Serum or plasma calcium measurement (mass/volume) 8.1 mg/dL 8.5-10.1 Serum or plasma total bilirubin measurement (mass/volume) 0.2 mg/dL 0.1-1.0 Serum or plasma alkaline phosphatase measurement (enzymatic activity/volume) 60 U/L 40-136 Serum or plasma aspartate aminotransferase measurement (enzymatic activity/volume) 30 U/L 5-34 Serum or plasma alanine aminotransferase measurement (enzymatic activity/volume) 19 U/L 0-55 Serum or plasma protein measurement (mass/volume) 4.8 g/dL 6.4-8.2 Serum or plasma albumin measurement (mass/volume) 2.3 g/dL 3.2-4.5 CALCIUM CORRECTED 9.5 mg/dL 8.5-10.1 STOOL (C-DIFF) - 01/07/18 10:21 CLOSTRIDIUM DIFFICILE TOXIN/GDH W/REFL TO PCR SEE NOTE NRG PDM - 09 PANEL (PROFILE 1) - 05/27/18 13:38 Creatinine 72.9 mg/dL > or=20.0 pH 7.01 4.5 - 9.0 Oxidant NEGATIVE mcg/mL <200 Amphetamines NEGATIVE ng/mL <500 medMATCH Amphetamines CONSISTENT NRG Benzodiazepines POSITIVE ng/mL <100 Marijuana Metabolite NEGATIVE ng/mL <20 medMATCH Marijuana Metab CONSISTENT NRG Cocaine Metabolite NEGATIVE ng/mL <150 medMATCH Cocaine Metab CONSISTENT NRG Opiates NEGATIVE CONFIRMED ng/mL <100 Oxycodone NEGATIVE ng/mL <100 medMATCH Oxycodone CONSISTENT NRG COMMENT NRG Alphahydroxyalprazolam 552 ng/mL <25 medMATCH aOH alprazolam INCONSISTENT NRG Alphahydroxymidazolam NEGATIVE ng/mL <50 medMATCH aOH midazolam CONSISTENT NRG Alphahydroxytriazolam NEGATIVE ng/mL <50 medMATCH aOH triazolam CONSISTENT NRG Aminoclonazepam NEGATIVE ng/mL <25 medMATCH Aminoclonazepam CONSISTENT NRG Hydroxyethylflurazepam NEGATIVE ng/mL <50 medMATCH OH,Et flurazepam CONSISTENT NRG Lorazepam NEGATIVE ng/mL <50 medMATCH Lorazepam CONSISTENT NRG Nordiazepam NEGATIVE ng/mL <50 medMATCH Nordiazepam CONSISTENT NRG Oxazepam NEGATIVE ng/mL <50 medMATCH Oxazepam CONSISTENT NRG Temazepam NEGATIVE ng/mL <50 medMATCH Temazepam CONSISTENT NRG Codeine NEGATIVE ng/mL <50 medMATCH Codeine CONSISTENT NRG Hydrocodone NEGATIVE ng/mL <50 medMATCH Hydrocodone CONSISTENT NRG Hydromorphone NEGATIVE ng/mL <50 medMATCH Hydromorphone CONSISTENT NRG Morphine NEGATIVE ng/mL <50 medMATCH Morphine CONSISTENT NRG Norhydrocodone NEGATIVE ng/mL <50 medMATCH Norhydrocodone CONSISTENT NRG Barbiturates NEGATIVE ng/mL <300 medMATCH Barbiturates CONSISTENT NRG Methadone Metabolite NEGATIVE ng/mL <100 medMATCH Methadone Metab CONSISTENT NRG Phencyclidine NEGATIVE ng/mL <25 medMATCH Phencyclidine CONSISTENT NRG LIPID PANEL - 09/28/18 08:11 CHOLESTEROL, TOTAL 148 mg/dL <200 HDL CHOLESTEROL 39 mg/dL >40 TRIGLYCERIDES 175 mg/dL <150 LDL-CHOLESTEROL 82 mg/dL (calc) NRG CHOL/HDLC RATIO 3.8 (calc) <5.0 NON HDL CHOLESTEROL 109 mg/dL (calc) <130 CMP - 09/28/18 08:11 GLUCOSE 87 mg/dL 65-99 UREA NITROGEN (BUN) 27 mg/dL 7-25 CREATININE 1.38 mg/dL 0.70-1.25 eGFR NON-AFR. BOLIVIAN 53 mL/min/1.73m2 > OR=60 eGFR 61 mL/min/1.73m2 > OR=60 BUN/CREATININE RATIO 20 (calc) 6-22 SODIUM 138 mmol/L 135-146 POTASSIUM 4.7 mmol/L 3.5-5.3 CHLORIDE 102 mmol/L 98-110 CARBON DIOXIDE 23 mmol/L 20-32 CALCIUM 9.8 mg/dL 8.6-10.3 PROTEIN, TOTAL 7.4 g/dL 6.1-8.1 ALBUMIN 4.4 g/dL 3.6-5.1 GLOBULIN 3.0 g/dL (calc) 1.9-3.7 ALBUMIN/GLOBULIN RATIO 1.5 (calc) 1.0-2.5 BILIRUBIN, TOTAL 0.3 mg/dL 0.2-1.2 ALKALINE PHOSPHATASE 90 U/L 40-115 AST 29 U/L 10-35 ALT 18 U/L 9-46 Encounters ACCT No. Visit Date/Time Discharge Status Pt. Type Provider Facility Loc./Unit Complaint [id number] 08/02/2014 08:57:00 08/02/2014 23:59:59 [facility] Outpatient STEPHAN DE LEON DO [id number] 02/11/2014 14:11:00 02/11/2014 23:59:59 [facility] Outpatient STEPHAN DE LEON DO [id number] 08/20/2013 09:40:00 08/20/2013 23:59:59 [facility] Outpatient STEPHAN DE LEON DO [id number] 04/08/2013 08:12:00 04/08/2013 23:59:59 [facility] Outpatient STEPHAN DE LEON DO [id number] 04/08/2013 08:12:00 04/08/2013 23:59:59 [facility] Outpatient DE LEON DOSTEPHAN [id number] 02/09/2013 16:55:00 02/09/2013 23:59:59 CLS Outpatient HALEY DOSTEPHAN [id number] 09/28/2012 09:55:00 09/28/2012 23:59:59 CLS Outpatient DE LEON STEPHAN CASTILLO [id number] 07/27/2012 13:03:00 07/27/2012 23:59:59 CLS Outpatient DE LEON DOSTEPHAN [id number] 06/17/2012 10:08:00 06/17/2012 23:59:59 CLS Outpatient DE LEON DOSTEPHAN [id number] 06/03/2012 13:57:00 06/03/2012 23:59:59 [facility] Outpatient [id number] 05/29/2012 08:42:00 05/29/2012 23:59:59 CLS Outpatient [id number] 05/25/2012 15:42:00 05/25/2012 23:59:59 [facility]LS Outpatient [id number] 05/11/2012 08:11:00 05/11/2012 23:59:59 CLS Outpatient DE LEON DOSTEPHAN [id number] 03/06/2012 09:20:00 03/06/2012 23:59:59 CLS Outpatient DE LEON DOSTEPHAN [id number] 03/06/2012 09:20:00 03/06/2012 23:59:59 CLS Outpatient DE LEON DOSTEPHAN [id number] 02/28/2012 08:54:00 02/28/2012 23:59:59 [place] [id number] 02/19/2012 09:00:00 02/19/2012 23:59:59 CLS Outpatient DE LEON DOSTEPHAN [id number] 05/13/2018 09:09:00 05/13/2018 23:59:59 CLS Preadmit MOI LEZAMA, AGUSTÍN [facility] RAD CERVICAL RADICULOPATHY [id number] 12/08/2017 09:02:00 12/15/2017 13:40:00 DIS Inpatient AMIRAH SANDERS DO [facility] 4TH ACUTE ON CHRONIC RENAL FAILURE,FEVER [id number] 01/20/2013 16:09:00 04/20/2013 00:01:00 DIS Outpatient RAVI MD, SONG A [facility] LAB RENAL INSUFFIENCEY [id number] 09/29/2012 13:37:00 12/28/2012 00:01:00 DIS Outpatient SONG RODRIGUES MD [facility] LAB RENAL [id number] 12/07/2012 14:39:00 12/07/2012 15:23:00 DIS Emergency MEDINA HARDEN MD [facility] ER THRUSH [id number] 09/29/2012 12:57:00 09/29/2012 23:59:59 CLS Outpatient SONG RODRIGUES MD [facility] RAD RENAL INSUFFICIENCY [id number] 10/15/2018 00:52:00 ACT Emergency MEDINA HARDEN MD [facility] ER FALL,KNEE PAIN [id number] 05/19/2018 23:58:00 Document Registration [id number] 05/19/2018 23:58:00 Document Registration [id number] 05/19/2018 23:58:00 Document Registration [id number] 05/19/2018 23:58:00 Document Registration [id number] 05/19/2018 23:58:00 Document Registration [id number] 04/21/2013 00:00:00 Document Registration [id number] 12/29/2012 00:00:00 Document Registration [id number] 06/10/2012 12:55:00 Document Registration [id number] 11/22/2010 13:19:00 Document Registration [id number] 07/06/2010 14:59:00 Document Registration [id number] 06/04/2010 10:56:00 Document Registration [id number] 10/31/2008 09:53:00 Document Registration [id number] 04/18/2008 14:34:00 Document Registration [id number] 02/05/2008 22:46:00 Document Registration [id number] 02/18/2007 12:51:00 Document Registration [id number] 09/28/2018 15:00:00 09/28/2018 23:59:59 CLS [facility] [id number] 09/28/2018 15:00:00 Document Registration [id number] 05/27/2018 13:40:00 Document Registration [id number] 01/07/2018 11:00:00 Document Registration [id number] 08/25/2017 09:00:00 Document Registration
[2018-10-15 03:46] LABS: ALANINE AMINOTRANSFERASE 25 U/L (0-55); ALBUMIN 4.4 GM/DL (3.2-4.5); ALKALINE PHOSPHATASE 77 U/L (40-136); BILIRUBIN,TOTAL 0.4 MG/DL (0.1-1.0); BUN/CREATININE RATIO 14; CALCIUM 10.4 MG/DL (8.5-10.1); CARBON DIOXIDE 21 MMOL/L (21-32); CHLORIDE 104 MMOL/L (98-107); CREATINE KINASE 485 U/L (30-200); CREATININE SERUM 1.96 MG/DL (0.60-1.30); GFR ESTIMATED 34; GLUCOSE 75 MG/DL (70-105); POTASSIUM 3.8 MMOL/L (3.6-5.0); SODIUM 140 MMOL/L (135-145); TOTAL PROTEIN 7.4 GM/DL (6.4-8.2)
[2018-10-15 05:23] LABS: BILIRUBIN,URINE NEGATIVE (NEGATIVE); COLOR,URINE YELLOW; GLUCOSE, URINE (UA) NEGATIVE (NEGATIVE); KETONES,URINE 2+ (NEGATIVE); LEUKOCYTE ESTERASE ,URINE 1+ (NEGATIVE); NITRITE,URINE NEGATIVE (NEGATIVE); PH,URINE 5 (5-9); PROTEIN,URINE 2+ (NEGATIVE); UROBILINOGEN,URINE NORMAL (NORMAL)
[2018-10-15 05:33] LABS: BACTERIA,URINE FEW /HPF; CLARITY,URINE SL CLOUDY; HYALINE CASTS, URINE 0-2 /LPF; RBC,URINE 0-2 /HPF; WBC,URINE 0-2 /HPF; WHITE BLOOD CELL CASTS, URINE RARE /LPF
--- NOTE | 2018-10-15 05:49 | ED Fall/Injury ---
General Chief Complaint: Trauma-Non Activation Stated Complaint: FALL,KNEE PAIN Nursing Triage Note: TO ED ROOM 3 [facility]. PER EMS PT FOUND ON GROUND. PT STATES HE FELL OUTSIDE WEARING FLIP FLOPS. C/O RIGHT HIP PAIN. DENIES HITTING HEAD. DENIES LOC. PT ALERT TO PERSON, PLACE, TIME, SITUATION. Source: patient, EMS Exam Limitations: no limitations History of Present Illness Date Seen by Provider: Oct 15, 2018 Time Seen by Provider: 00:52 Initial Comments This 68-year-old gentleman presents to the emergency room via EMS. He was found on the ground outside of his apartment [place]. Law enforcement called EMS. Patient apparently felt. He denies any head or neck injury. He has chronic neck pain and some blood is noted in his nostrils. 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 Patient is alert and oriented but mentation seems doled. He complains of pain in the right hip. Allergies and Home Medications Allergies Coded Allergies: NSAIDS (Non-Steroidal Anti-Inflamma (Verified Allergy, Unknown, 02/06/08) Penicillins (Verified Allergy, Unknown, 02/06/08) aspirin (Verified Allergy, Unknown, 02/06/08) Uncoded Allergies: NON STEROIDOL ANTI INFLAMTORY (Allergy, Mild, 09/04/08) Home Medications Amlodipine Besylate 10 Mg Tablet, 10 MG PO DAILY, (Reported) Ascorbic Acid 500 Mg Tablet, 500 MG PO 1500, (Reported) Aspirin 81 Mg Tablet.dr, 81 MG PO BID, (Reported) Beta-Carotene 10,000 Unit Capsule, 10,000 UNIT PO BID, (Reported) Carisoprodol 350 Mg Tablet, 350 MG PO QID, (Reported) Cefdinir 300 Mg Capsule, 300 MG PO BID Prescribed by: MARIANA RUTHERFORD on 12/15/17 1141 Ferrous Sulfate 325 Mg Tablet, 325 MG PO DAILY, (Reported) Fluticasone Propionate 16 Gm [place].susp, 2 SPRAY NS HS, (Reported) Hydrocodone/Acetaminophen 1 Each Tablet, 1 TAB PO Q6H PRN for PAIN-MODERATE Prescribed by: MARIANA RUTHERFORD on 12/15/17 1141 L. Acidophilus/Bulgaricus 1 Each Tablet, 1 TAB.CHEW PO AC Prescribed by: MARIANA RUTHERFORD on 12/15/17 1141 Metronidazole 500 Mg Tablet, 500 MG PO BID Prescribed by: MARIANA RUTHERFORD on 12/15/17 1141 Multivitamin 1 Each Tablet, 1 TAB PO DAILY, (Reported) Pantoprazole Sodium 40 Mg Tablet.dr, 40 MG PO DAILY Prescribed by: MARIANA RUTHERFORD on 12/15/17 1141 Perphenazine/Amitriptyline HCl 1 Each Tablet, 6 TAB PO HS, (Reported) Polyethylene Glycol 3350 17 Gm Powd.pack, 17 GM PO DAILY PRN for CONSTIPATION- 2ND LINE, (Reported) Tamsulosin HCl 0.4 Mg Cap, 0.4 MG PO DAILY@1800 Prescribed by: MARIANA RUTHERFORD on 12/15/17 1141 Thioridazine HCl 100 Mg Tablet, 200 MG PO HS, (Reported) TAKES 2 (100MG) TABLETS Tizanidine HCl 4 Mg Tablet, 4 MG PO TID PRN for MUSCLE SPASMS, (Reported) Ubidecarenone/Vit E Acetate 1 Each Capsule, 100 MG PO BID, (Reported) Vitamin E Acetate 400 Unit Capsule, 400 UNIT PO 1500, (Reported) Patient Home Medication List Home Medication List Reviewed: Yes Review of Systems Review of Systems Constitutional: no symptoms reported Eyes: No Symptoms Reported Ears, Nose, Mouth, Throat: no symptoms reported Respiratory: no symptoms reported Cardiovascular: no symptoms reported Gastrointestinal: no symptoms reported Genitourinary: no symptoms reported Musculoskeletal: see HPI Skin: no symptoms reported Psychiatric/Neurological: See HPI Past Huuwbva-Dhumrq-Esibta Hx Patient Social History Alcohol Use: Occasionally Uses Recreational Drug Use: No Smoking Status: Former Smoker Type Used: Cigarettes Recent Foreign Travel: No Contact w/Someone Who Travel: No Recent Infectious Disease Expo: No Recent Hopitalizations: No Immunizations Up To Date Tetanus Booster (TDap): Unknown Past Medical History Surgeries: Yes Abdominal, Orthopedic Respiratory: Yes (spontaneous pneumothorax) Currently Using CPAP: No Currently Using BIPAP: No Cardiac: Yes High Cholesterol, Hypertension Neurological: Yes (polyneuropathy, 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) Reproductive Disorders: No Genitourinary: Yes Benign Prostatic Hyperpl, Bladder Infection, Renal Failure Gastrointestinal: Yes (history of bowel perforation and left hemicolectomy) Musculoskeletal: Yes (chronic musculoskeletal pain from polyneuropathy) Arthritis, Chronic Back Pain Endocrine: Yes HEENT: Yes (chronic sinus problems) Cancer: No Psychosocial: Yes Sleep Difficulties, Anxiety, Bipolar, Schizophrenia, Depression Integumentary: No Blood Disorders: No Family Medical History Other Conditions/Hx Physical Exam Vital Signs Vital Signs - First Documented Capillary Refill : Less Than 3 Seconds Height, Weight, BMI Height: 5'11.00" Weight: 187lbs. 8.0oz. 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, no motor/sensory deficits, alert, normal mood/affect, oriented x 3 Skin: normal color, warm/dry Evans Coma Score Best Eye Response: (4) Open Spontaneously Best Verbal Response: (5) Oriented Best Motor Response: (6) Obeys Commands Evans Total: 15 Progress/Results/Core Measures Results/Orders Lab Results Laboratory Tests Test 10/15/18 01:22 10/15/18 02:50 10/15/18 05:15 Range/Units White Blood Count 13.4 H 4.3-11.0 10^3/uL Red Blood Count 4.71 4.35-5.85 10^6/uL Hemoglobin 13.5 13.3-17.7 G/DL Hematocrit 40 40-54 % Mean Corpuscular Volume 86 80-99 FL Mean Corpuscular Hemoglobin 29 25-34 PG Mean Corpuscular Hemoglobin Concent 33 32-36 G/DL Red Cell Distribution Width 15.2 H 10.0-14.5 % Platelet Count 315 130-400 10^3/uL Mean Platelet Volume 8.7 7.4-10.4 FL Neutrophils (%) (Auto) 83 H 42-75 % Lymphocytes (%) (Auto) 9 L 12-44 % Monocytes (%) (Auto) 8 0-12 % Eosinophils (%) (Auto) 0 0-10 % Basophils (%) (Auto) 0 0-10 % Neutrophils # (Auto) 11.2 H 1.8-7.8 X 10^3 Lymphocytes # (Auto) 1.1 1.0-4.0 X 10^3 Monocytes # (Auto) 1.1 H 0.0-1.0 X 10^3 Eosinophils # (Auto) 0.0 0.0-0.3 10^3/uL Basophils # (Auto) 0.1 0.0-0.1 10^3/uL Sodium Level 140 135-145 MMOL/L Potassium Level 3.8 3.6-5.0 MMOL/L Chloride Level 104 98-107 MMOL/L Carbon Dioxide Level 21 21-32 MMOL/L Anion Gap 15 H 5-14 MMOL/L Blood Urea Nitrogen 28 H 7-18 MG/DL Creatinine 1.96 H 0.60-1.30 MG/DL Estimat Glomerular Filtration Rate 34 BUN/Creatinine Ratio 14 Glucose Level 75 70-105 MG/DL Calcium Level 10.4 H 8.5-10.1 MG/DL Corrected Calcium 10.1 8.5-10.1 MG/DL Magnesium Level 2.0 1.8-2.4 MG/DL Total Bilirubin 0.4 0.1-1.0 MG/DL Aspartate Amino Transf (AST/SGOT) 30 5-34 U/L Alanine Aminotransferase (ALT/SGPT) 25 0-55 U/L Alkaline Phosphatase 77 40-136 U/L Total Creatine Kinase 485 H 30-200 U/L Total Protein 7.4 6.4-8.2 GM/DL Albumin 4.4 3.2-4.5 GM/DL Serum Alcohol < 10 <10 MG/DL Urine Color YELLOW Urine Clarity SL CLOUDY Urine pH 5 5-9 Urine Specific [place] 1.025 H 1.016-1.022 Urine Protein 2+ H NEGATIVE Urine Glucose (UA) NEGATIVE NEGATIVE Urine Ketones 2+ H NEGATIVE Urine Nitrite NEGATIVE NEGATIVE Urine Bilirubin NEGATIVE NEGATIVE Urine Urobilinogen NORMAL NORMAL MG/DL Urine Leukocyte Esterase 1+ H NEGATIVE Urine RBC (Auto) 1+ H NEGATIVE Urine RBC 0-2 /HPF Urine WBC 0-2 /HPF Urine Squamous Epithelial Cells NONE /HPF Urine Crystals NONE /LPF Urine Bacteria FEW H /HPF Urine Casts PRESENT /LPF Urine Hyaline Casts 0-2 H /LPF Urine Granular Casts 2-5 H /LPF Urine White Blood Cell Casts RARE H /LPF Urine Mucus MODERATE H /LPF Urine Culture Indicated YES My Orders Orders - MEDINA HARDEN MD Ct Head/Cervical Spine Wo (10/15/18 01:01) Chest 1 View, Ap/Pa Only (10/15/18 01:01) Pelvis With Right Hip 2-3views (10/15/18 01:01) Monitor-Rhythm Ecg Trace Only (10/15/18 01:01) Alcohol (10/15/18 01:01) Cbc With Automated Diff (10/15/18 01:01) Comprehensive Metabolic Panel (10/15/18 01:01) Creatine Kinase (10/15/18 01:01) Magnesium (10/15/18 01:01) Ua Culture If Indicated (10/15/18 01:01) Ed Iv/Invasive Line Start (10/15/18 01:01) Ns Iv 1000 Ml (Sodium Chloride 0.9%) (10/15/18 01:01) Ns Iv 1000 Ml (Sodium Chloride 0.9%) (10/15/18 04:09) Tramadol Tablet (Ultram Tablet) (10/15/18 05:00) Urine Culture (10/15/18 05:15) Medications Given in ED Current Medications Medications Dose Ordered Sig/Nir Route Start Time Stop Time Status Last Admin Dose Admin Sodium Chloride 1,000 ml @ 0 mls/hr Q0M ONCE IV 10/15/18 01:01 10/15/18 01:05 DC 10/15/18 02:44 999 MLS/HR Sodium Chloride 1,000 ml @ 0 mls/hr Q0M ONCE IV 10/15/18 04:09 10/15/18 04:10 DC 10/15/18 04:45 999 MLS/HR Tramadol HCl 50 mg ONCE ONCE PO 10/15/18 05:00 10/15/18 05:01 DC 10/15/18 05:09 50 MG Vital Signs/I&O 10/15/18 10/15/18 00:50 00:50 Temp 98.2 98.2 Pulse 110 110 Resp 18 18 B/P (MAP) 114/77 (89) 114/77 (89) Pulse Ox 95 O2 Delivery Room Air Blood Pressure Mean: 89 Progress Progress Note : Progress Note Patient was found to have a mildly elevated CK and acute kidney injury. He received 2 L of IV fluids. He admits he has not been drinking water well. No injuries were found on imaging. Patient's pain complaints are primarily chronic and he states he gets his hydrocodone filled today from his primary care provider. Ultram was given in the ER for pain control. Diagnostic Imaging Diagonstic Imaging: CT Plain Films/CT/US/NM/MRI: c-spine, head Comments CT head and cervical spine viewed by me and [facility] report reviewed. No fractures, dislocations, or intracranial injury identified. Diagonstic Imaging: Xray Plain Films/CT/US/NM/MRI: chest Comments Chest x-ray viewed by me. Report not yet available. No acute abnormalities appreciated. Diagonstic Imaging: Xray Plain Films/CT/US/NM/MRI: pelvis, hip Comments X-ray of the pelvis and right hip viewed by me and report not yet available. No acute injuries identified. Departure Impression Primary Impression: Acute kidney injury Additional Impressions: Fall on same level Qualified Codes: W18.30XA - Fall on same level, unspecified, initial encounter Right hip pain Disposition: HOME, SELF-CARE Condition: Improved Departure-Patient Inst. Decision time for Depature: 05:54 Referrals: STEPHAN DE LEON DO (PCP/Family) Primary Care Physician Patient Instructions: Acute Kidney Failure (DC) Add. Discharge Instructions: Drink plenty of clear liquids. Use your pain medication as previously prescribed. Follow-up with your primary care provider soon as possible to monitor your kidney function. Return to emergency room if you have worsening symptoms. All discharge instructions reviewed with patient and/or family. Voiced understanding. Copy Copies To 1: AGUSTÍN PRATER MD, JOSHUA T MD Oct 15, 2018 05:49
[2018-10-15 06:20] VITALS: BP 149/81
--- NOTE | 2018-10-15 07:39 | Diagnostic Imaging Report ---
INDICATION: Fall, pain. Study compared 12/12/2017. FINDINGS: There is no focal pulmonary consolidation. The heart size and vascularity normal. There is no effusion or pneumothorax. There is no free air beneath the diaphragms. IMPRESSION: No acute appearing abnormality. Dictated by: Dictated on workstation # [id number]
--- NOTE | 2018-10-15 07:40 | Diagnostic Imaging Report ---
INDICATION: Pain. AP radiograph of the pelvis reveals arthritic changes in the bilateral hips appearing relatively symmetric. There are clips compatible with previous vasectomy. No suspicious foreign body. The bowel gas pattern unremarkable. The dedicated two view right hip shows no avulsion or other fracture pattern. No bony destruction, erosion or loose body. IMPRESSION: No acute appearing abnormality. Dictated by: Dictated on workstation # [id number]
--- NOTE | 2018-10-15 07:53 | Diagnostic Imaging Report ---
PROCEDURE: CT head and CT cervical spine without contrast. TECHNIQUE: Multiple contiguous axial images were obtained through the brain and cervical spine without the use of intravenous contrast. Sagittal and coronal reformations through the cervical spine were then performed. Auto Exposure Controls were utilized during the CT exam to meet ALARA standards for radiation dose reduction. INDICATION: Fall with pain. Head: Given positioning and head tilting, the midline structures are nondisplaced. There are no abnormal extra-axial fluid collections and there is no evidence for intracerebral hemorrhage. There were no findings of focal nor generalized rugal edema and no sulcal effacement or distortion of the basilar cisterns. There is opacification of the left-sided mastoid air cells as well as debris or tissue occluding the left external auditory canal as well as fluid and/or tissue occluding the left middle ear cavity. A fracture is not identified. The contralateral right mastoid air cells, middle ear cavity and external auditory canal appear clear. The paranasal sinuses clear. CT cervical spine: There are degenerative changes to the discs, endplates, facets and uncovertebral joints throughout the cervical spine. Given positioning, the alignment appeared within normal limits. The vertebral statures are unremarkable. There was no paravertebral hematoma. There are vascular calcifications along the carotid distributions. No facet joint dislocation or perching. There is no listhesis. No traumatic malalignment. No high-grade bony canal stenosis. Thoracic inlet and visualized pulmonary apices appeared unremarkable. IMPRESSION: CT head: 1. No acute-appearing intracerebral pathology. 2. Left mastoid opacification, middle ear opacification and occlusion of the external auditory canal by tissue or debris. Correlate clinically for features of otomastoiditis and otitis externa. CT cervical spine: Spondylosis and facet arthrosis with carotid atherosclerosis but no fracture or traumatic malalignment. Dictated by: Dictated on workstation # [id number]
--- NOTE | 2018-10-15 08:40 | NUR ---
Pt's cell phone and keys found in waiting room. Called pt.
[2018-10-15] MEDS ORDERED: CHLO100T22 PO (15:56)
[2018-10-15] MEDS ORDERED: ALPR2TAB6 PO (15:56)
[2018-10-15] MEDS ORDERED: QUET200T57 PO (15:56)
[2018-10-15] MEDS ORDERED: ENAL20TA PO (15:56)
[2018-10-15] MEDS ORDERED: TEST200V21 IM (15:56)
[2018-10-15] MEDS ORDERED: EZET10TA49 PO (15:56)
[2018-10-15] MEDS ORDERED: ACID1TAB PO (16:27)
== END 2018-10-15 06:25 | disposition home or self-care (01) ==
LOC: EDUNIT# 00:50 → ER 00:52
DX: S37.009A Unspecified injury of unspecified kidney, initial encounter (principal); M25.551 Pain in right hip; I10 Essential (primary) hypertension; E78.00 Pure hypercholesterolemia, unspecified; G62.9 Polyneuropathy, unspecified; N40.0 Benign prostatic hyperplasia without lower urinary tract symptoms; F41.9 Anxiety disorder, unspecified; F31.9 Bipolar disorder, unspecified; F20.9 Schizophrenia, unspecified; R40.2142 Coma scale, eyes open, spontaneous, at arrival to emergency department; R40.2252 Coma scale, best verbal response, oriented, at arrival to emergency department; R40.2362 Coma scale, best motor response, obeys commands, at arrival to emergency department; Z88.6 Allergy status to analgesic agent; Z88.0 Allergy status to penicillin; Z79.82 Long term (current) use of aspirin; Z87.891 Personal history of nicotine dependence; W18.30XA Fall on same level, unspecified, initial encounter
CPT/HCPCS: 36415; 70450; 71045; 72125; 80053; 80320; 81000; 82550; 83735; 85025; 87088; 93041; 96360; 96361

== ENCOUNTER 2018-10-15 09:21 | Observation (INO) | payer MEDICARE ==
[~2018-10-15] VITALS: Ht 180.3 cm; Wt 86.2 kg
[2018-10-15] MEDS ORDERED: NS IV 500 ML 500 ML IV ONE (09:44)
[2018-10-15 09:52] LABS: BASOPHILS % (AUTO) 0 % (0-10); EOSINOPHILS % (AUTO) 0 % (0-10); HEMATOCRIT 38 % (40-54); HEMOGLOBIN 12.8 G/DL (13.3-17.7); LYMPHOCYTES # (AUTO) 1.4 X 10^3 (1.0-4.0); LYMPHOCYTES % (AUTO) 11 % (12-44); MEAN CORPUSCULAR HEMOGLOBIN 29 PG (25-34); MEAN CORPUSCULAR HGB CONC 33 G/DL (32-36); MEAN CORPUSCULAR VOLUME 86 FL (80-99); MEAN PLATELET VOLUME 8.8 FL (7.4-10.4); MONOCYTES # (AUTO) 0.9 X 10^3 (0.0-1.0); MONOCYTES % (AUTO) 7 % (0-12); NEUTROPHILS # (AUTO) 10.1 X 10^3 (1.8-7.8); NEUTROPHILS % (AUTO) 81 % (42-75); PLATELET COUNT 320 10^3/uL (130-400); RED CELL DISTRIBUTION WIDTH 15.1 % (10.0-14.5); WHITE BLOOD COUNT 12.5 10^3/uL (4.3-11.0)
--- NOTE | 2018-10-15 10:03 | ED Neurological Problem ---
General Chief Complaint: Altered Mental Status Stated Complaint: AMS Nursing Triage Note: Pt to ED via EMS. Pt reports being at home when a neighbor started choking and performing the heimlich maneuver. Pt reports then calling EMS. Neighbor reports this situation did not happen. Pt A&O X 3. Pt able to answer name, date of , month, and location, but appears to be confused regarding situation. Pt c/o chronic R hip, neck and back pain. Pt reports feeling nervous about being confused at this time. EMS reports blood sugar of 93. Nursing Sepsis Screen: No Definite Risk Source: patient, EMS Exam Limitations: clinical condition History of Present Illness Date Seen by Provider: Oct 15, 2018 Time Seen by Provider: 09:38 Initial Comments Here with report of being at home and seeing something that apparently did not happen. He thought that he saw somebody choking and witnesses at the scene did not agree that that happened. He was just in the emergency department small morning and was actually here for several hours. He was noted to be dehydrated and was given IV fluids 2 L and had a significant workup including CT head and neck as well as x-rays. All of this was negative for acute findings other than dehydration. Over read his CT does have some concerns related to opacification of the left middle ear and mastoid which may indicate infection. Patient denies pain other than his typical neck and right hand pain. Did have a fall earlier this morning but was cleared via CT scan afterwards. He has not fallen since. Denies fever or chills. Denies nausea or vomiting. Timing/Duration: 4-6 hours, increasing Severity: moderate Associated Symptoms: confusion; No fever/chills, No nausea/vomiting Allergies and Home Medications Allergies Coded Allergies: NSAIDS (Non-Steroidal Anti-Inflamma (Verified Allergy, Unknown, 02/06/08) Penicillins (Verified Allergy, Unknown, 02/06/08) aspirin (Verified Allergy, Unknown, 02/06/08) chlorpromazine (Verified Allergy, Unknown, 10/15/18) Uncoded Allergies: NON STEROIDOL ANTI INFLAMTORY (Allergy, Mild, 09/04/08) Home Medications Amlodipine Besylate 10 Mg Tablet, 10 MG PO DAILY, (Reported) Ascorbic Acid 500 Mg Tablet, 500 MG PO 1500, (Reported) Aspirin 81 Mg Tablet.dr, 81 MG PO BID, (Reported) Beta-Carotene 10,000 Unit Capsule, 10,000 UNIT PO BID, (Reported) Carisoprodol 350 Mg Tablet, 350 MG PO QID, (Reported) Cefdinir 300 Mg Capsule, 300 MG PO BID Prescribed by: MARIANA RUTHERFORD on 12/15/171140 Ferrous Sulfate 325 Mg Tablet, 325 MG PO DAILY, (Reported) Fluticasone Propionate 16 Gm [place].susp, 2 SPRAY NS HS, (Reported) Hydrocodone/Acetaminophen 1 Each Tablet, 1 TAB PO Q6H PRN for PAIN-MODERATE Prescribed by: MARIANA RUTHERFORD on 12/15/171140 L. Acidophilus/Bulgaricus 1 Each Tablet, 1 TAB.CHEW PO AC Prescribed by: MARIANA RUTHERFORD on 12/15/171140 Metronidazole 500 Mg Tablet, 500 MG PO BID Prescribed by: MARIANA RUTHERFORD on 12/15/171140 Multivitamin 1 Each Tablet, 1 TAB PO DAILY, (Reported) Pantoprazole Sodium 40 Mg Tablet.dr, 40 MG PO DAILY Prescribed by: MARIANA RUTHERFORD on 12/15/17 114 Perphenazine/Amitriptyline HCl 1 Each Tablet, 6 TAB PO HS, (Reported) Polyethylene Glycol 3350 17 Gm Powd.pack, 17 GM PO DAILY PRN for CONSTIPATION- 2ND LINE, (Reported) Tamsulosin HCl 0.4 Mg Cap, 0.4 MG PO DAILY@1800 Prescribed by: MARIANA RUTHERFORD on 12/15/171140 Thioridazine HCl 100 Mg Tablet, 200 MG PO HS, (Reported) TAKES 2 (100MG) TABLETS Tizanidine HCl 4 Mg Tablet, 4 MG PO TID PRN for MUSCLE SPASMS, (Reported) Ubidecarenone/Vit E Acetate 1 Each Capsule, 100 MG PO BID, (Reported) Vitamin E Acetate 400 Unit Capsule, 400 UNIT PO 1500, (Reported) Patient Home Medication List Home Medication List Reviewed: Yes Review of Systems Review of Systems Constitutional: see HPI; No chills, No fever Eyes: See HPI; Denies Pain, Denies Photophobia Ears, Nose, Mouth, Throat: no symptoms reported Respiratory: No cough, No short of breath Cardiovascular: No chest pain, No edema Gastrointestinal: No nausea, No vomiting Genitourinary: no symptoms reported Musculoskeletal: see HPI, joint pain, muscle pain, neck pain Skin: No change in color, No lesions Psychiatric/Neurological: See HPI; Denies Headache; Tingling (right hand that is chronic) All Other Systems Reviewed Negative Unless Noted: Yes Past Vxnmaad-Hbzxdz-Ljvsyk Hx Past Med/Social Hx: Reviewed Nursing Past Med/Soc Hx Patient Social History Alcohol Use: Denies Use Recreational Drug Use: No Smoking Status: Former Smoker Type Used: Cigarettes Former Smoker, Quit: Apr 21, 2015 Recent Foreign Travel: No Contact w/Someone Who Travel: No Recent Infectious Disease Expo: No Recent Hopitalizations: No Immunizations Up To Date Tetanus Booster (TDap): Unknown Past Medical History Surgeries: Yes Abdominal, Orthopedic Respiratory: Yes (spontaneous pneumothorax) Currently Using CPAP: No Currently Using BIPAP: No Cardiac: Yes High Cholesterol, Hypertension Neurological: Yes (polyneuropathy, 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) Reproductive Disorders: No Genitourinary: Yes Benign Prostatic Hyperpl, Bladder Infection, Renal Failure Gastrointestinal: Yes (history of bowel perforation and left hemicolectomy) Musculoskeletal: Yes (chronic musculoskeletal pain from polyneuropathy) Arthritis, Chronic Back Pain Endocrine: Yes HEENT: Yes (chronic sinus problems) Cancer: No Psychosocial: Yes Sleep Difficulties, Anxiety, Bipolar, Schizophrenia, Depression Integumentary: No Blood Disorders: No Family Medical History Reviewed Nursing Family Hx No Pertinent Family Hx, Other Conditions/Hx Physical Exam Vital Signs Vital Signs - First Documented 10/15/18 09:21 Temp 98.6 Pulse 112 Resp 22 B/P (MAP) 139/94 (109) Pulse Ox 95 O2 Delivery Room Air Capillary Refill : Less Than 3 Seconds Height, Weight, BMI Height: 5'11.00" Weight: 187lbs. 8.0oz. 85.186548jh; 26.9 BMI Method:Stated General Appearance: WD/WN, no apparent distress HEENT: PERRL/EOMI, pharynx normal, other (cerumen impaction bilateral) Neck: supple, limited range of motion (chronic neck pain problems), tender lateral Respiratory: lungs clear, normal breath sounds Cardiovascular: no murmur, tachycardia Gastrointestinal: non tender, soft Back: normal inspection, no CVA tenderness, no vertebral tenderness Extremities: normal range of motion, non-tender, normal inspection Neurologic/Psychiatric: alert, normal mood/affect Crainal Nerves: normal hearing, normal speech, PERRL Skin: normal color, warm/dry Progress/Results/Core Measures Results/Orders Lab Results Laboratory Tests Test 10/15/18 09:25 Range/Units White Blood Count 12.5 H 4.3-11.0 10^3/uL Red Blood Count 4.45 4.35-5.85 10^6/uL Hemoglobin 12.8 L 13.3-17.7 G/DL Hematocrit 38 L 40-54 % Mean Corpuscular Volume 86 80-99 FL Mean Corpuscular Hemoglobin 29 25-34 PG Mean Corpuscular Hemoglobin Concent 33 32-36 G/DL Red Cell Distribution Width 15.1 H 10.0-14.5 % Platelet Count 320 130-400 10^3/uL Mean Platelet Volume 8.8 7.4-10.4 FL Neutrophils (%) (Auto) 81 H 42-75 % Lymphocytes (%) (Auto) 11 L 12-44 % Monocytes (%) (Auto) 7 0-12 % Eosinophils (%) (Auto) 0 0-10 % Basophils (%) (Auto) 0 0-10 % Neutrophils # (Auto) 10.1 H 1.8-7.8 X 10^3 Lymphocytes # (Auto) 1.4 1.0-4.0 X 10^3 Monocytes # (Auto) 0.9 0.0-1.0 X 10^3 Eosinophils # (Auto) 0.0 0.0-0.3 10^3/uL Basophils # (Auto) 0.0 0.0-0.1 10^3/uL Sodium Level 139 135-145 MMOL/L Potassium Level 4.3 3.6-5.0 MMOL/L Chloride Level 105 98-107 MMOL/L Carbon Dioxide Level 21 21-32 MMOL/L Anion Gap 13 5-14 MMOL/L Blood Urea Nitrogen 29 H 7-18 MG/DL Creatinine 1.86 H 0.60-1.30 MG/DL Estimat Glomerular Filtration Rate 36 BUN/Creatinine Ratio 16 Glucose Level 86 70-105 MG/DL Calcium Level 9.6 8.5-10.1 MG/DL Corrected Calcium 9.4 8.5-10.1 MG/DL Total Bilirubin 0.4 0.1-1.0 MG/DL Aspartate Amino Transf (AST/SGOT) 36 H 5-34 U/L Alanine Aminotransferase (ALT/SGPT) 24 0-55 U/L Alkaline Phosphatase 77 40-136 U/L C-Reactive Protein High Sensitivity 0.59 H 0.00-0.50 MG/DL Total Protein 7.3 6.4-8.2 GM/DL Albumin 4.3 3.2-4.5 GM/DL Thyroid Stimulating Hormone (TSH) 1.66 0.35-4.94 UIU/ML My Orders Orders - RAMON BLOOM MD Cbc With Automated Diff (10/15/18 09:44) Comprehensive Metabolic Panel (10/15/18 09:44) Hs C Reactive Protein (10/15/18 09:44) Thyroid Stimulating Hormone (10/15/18 09:44) Ed Iv/Invasive Line Start (10/15/18 09:44) Ns Iv 500 Ml (Sodium Chloride 0.9%) (10/15/18 09:44) Medications Given in ED Current Medications Medications Dose Ordered Sig/Nir Route Start Time Stop Time Status Last Admin Dose Admin Sodium Chloride 500 ml @ 0 mls/hr Q0M ONCE IV 10/15/18 09:44 10/15/18 09:48 DC 10/15/18 09:52 500 MLS/HR Vital Signs/I&O 10/15/18 09:21 Temp 98.6 Pulse 112 Resp 22 B/P (MAP) 139/94 (109) Pulse Ox 95 O2 Delivery Room Air Blood Pressure Mean: 109 Progress Progress Note : Progress Note Seen and evaluated. I have reviewed the evaluation from earlier this morning. Given return presentation, we will recheck labs and give normal saline 500 mL bolus. Monitor patient. 1055: Patient has persistent of renal failure as well as the concerns related to his confusion and altered mental status. I did discuss the case with Dr. Velarde. She accepts patient for admission, observation status. This was discussed with patient who agrees with plan. Departure Communication (Admissions) Time/Spoke to Admitting Phy: 10:55 Impression Primary Impression: Acute renal insufficiency Additional Impressions: Delirium Dehydration Disposition: ADMITTED INPATIENT Condition: Stable Admissions Decision to Admit Reason: Admit from ER (General) Decision to Admit/Date: Oct 15, 2018 Time/Decision to Admit Time: 10:55 Departure-Patient Inst. Referrals: AGUSTÍN PRATER MD (PCP) Primary Care Physician [facility] (Family) Primary Care Physician RAMON BLOOM MD Oct 15, 2018 10:03
[2018-10-15 10:05] LABS: ALBUMIN 4.3 GM/DL (3.2-4.5); BILIRUBIN,TOTAL 0.4 MG/DL (0.1-1.0); CALCIUM 9.6 MG/DL (8.5-10.1); CREATININE SERUM 1.86 MG/DL (0.60-1.30); POTASSIUM 4.3 MMOL/L (3.6-5.0); TOTAL PROTEIN 7.3 GM/DL (6.4-8.2)
--- NOTE | 2018-10-15 10:15 | NUR ---
Pt offered additional pillow for neck. Pt declined at this time.
--- OUTSIDE RECORDS SUMMARY | 2018-10-15 10:19 | XMS REPORT | Continuity of Care Document ---
Author Organization Unknown Address Unknown Allergies Active Description Code Type Severity Reaction Onset Reported/Identified Relationship to Patient Clinical Status Yes aspirin [id number] Drug Allergy Unknown N/A 02/06/2008 Yes NSAIDS (Non-Steroidal Anti-Inflamma [id number] Drug Allergy Unknown N/A 02/06/2008 Yes Penicillins [id number] Drug Allergy Unknown N/A 02/06/2008 Yes aspirin [...] STEPHAN K 593.9 RENAL INSUFFICIENCY 03/20/2010 DE LENO DO, STEPHAN K 593.9 RENAL INSUFFICIENCY 03/20/2010 [...] 785.9 CAROTID BRUIT 05/30/2010 DE LEON DO, STEHPAN K 785.2 MURMURS, UNDIAGNOSED CARDIAC 05/30/2010 DE LEON DO, STEPHAN K 785.9 CAROTID BRUIT 05/30/2010 DE ELON DO, STEPHAN K 785.2 MURMURS, UNDIAGNOSED CARDIAC [...] 380.4 CERUMEN IMPACTION 12/17/2011 DE LEON DO, TSEPHAN K 382.9 Unspecified Otitis Media 12/17/2011 DE [...] K 388.70 Earache 02/28/2012 DE LEON DO, TSEPHAN K 381.81 EUSTACHIAN TUBE DYSFUNCTION 02/28/2012 DE [...] Ot M54.9 DORSALGIA, UNSPECIFIED 12/13/2017 SANDERS DO, AMIRAH Ot N17.9 ACUTE KIDNEY FAILURE, UNSPECIFIED 12/13/2017 [...] Ot G47.9 SLEEP DISORDER, UNSPECIFIED 12/14/2017 TOMMY CASTILOL AMIRAH Ot G62.9 POLYNEUROPATHY, UNSPECIFIED 12/14/2017 TOMMY [...] OTHER INJURY OF UNSPECIFIED BODY REGION, 12/14/2017 SANDRES DO, AMIRAH Ot T79.6XXA TRAUMATIC ISCHEMIA OF [...] KIDNEY DISEASE W ST 12/15/2017 SANDERS DO, AMIRAH Ot L89.152 PRESSURE ULCER [...] 02/06/2008 54.21 LAPAROSCOPY 11/22/2010 Yelitza Lainez 02/19/2012 43415 ROUTINE VENIPUNCTURE 05/11/2012 97194 CMP 05/11/2012 [id number] GFR CALC (RESULT ONLY) 05/11/2012 82090 LIPID PANEL 05/11/2012 94299 CALCIUM IONIZED 05/12/2012 34669 VITAMIN D 25-HYDROXY (D2,D3, TOTAL) 05/12/2012 50127 A1C (RML) 05/12/2012 [id number] CALCIUM (RESULT ONLY) 05/12/2012 [id number] PTH INTACT BILLY (RESULT ONLY) 05/12/2012 34944 PTH (intact) 05/26/2012 NEPHR Erick, Barbie 06/09/2012 51009 US RENAL ULTRASOUND, COMP 06/10/2012 41087 ROUTINE VENIPUNCTURE 06/17/2012 51915 LIVER PANEL (LFT) 06/17/2012 [id number] GFR CALC (RESULT ONLY) 06/17/2012 61242 LIPID PANEL 06/17/2012 86043 CBC 06/17/2012 33885 RENAL PROFILE 06/17/2012 42965 UA W/ CULTURE IF INDICATED 07/27/2012 PRO/CRE URINE PROTEIN TO CREATNINE RATIO 07/27/2012 51569 URINE DRUG SCREEN (IN-HOUSE) 02/09/2013 95781 XRAY CHEST 2 VIEW 04/08/2013 32822 ROUTINE VENIPUNCTURE 08/20/2013 93590 CBC 08/20/2013 [id number] GFR CALC (RESULT ONLY) 08/20/2013 52119 CMP 08/20/2013 76806 LIPID PANEL 08/20/2013 82435 ROUTINE VENIPUNCTURE 02/11/2014 35294 CMP 02/11/2014 0938851 GFR CALC (RESULT ONLY) 02/11/2014 24654 ROUTINE VENIPUNCTURE 08/02/2014 85700 A1C (IN-HOUSE) 08/02/2014 [id number] GFR CALC (RESULT ONLY) 08/02/2014 83876 CMP 08/02/2014 24545 LIPID PANEL 08/02/2014 [id number] INSPECTION OF BLADDER, ENDO 12/12/2017 Results Test Result Range CMP - 08/25/17 08:52 GLUCOSE 86 mg/dL 65-99 UREA NITROGEN (BUN) 17 mg/dL 7-25 CREATININE 1.42 mg/dL 0.70-1.25 eGFR NON-AFR. QATARI 51 mL/min/1.73m2 > OR=60 eGFR 59 mL/min/1.73m2 [...] RX BLOOD COMPONENT A POS FFP NR [id number] NRG [id number] OK NRG [id number] NORMAL NRG Bacterial blood culture NOT INDICATED [...] RESULTS NEGATIVE FOR ANTIGEN AND TOXIN A/B [facility] [id number] - 12/12/17 03:10 Stool bacteria identification by [...] 7-25 CREATININE 1.38 mg/dL 0.70-1.25 eGFR NON-AFR. QATARI 53 mL/min/1.73m2 > OR=60 eGFR 61 mL/min/1.73m2 [...] 29 U/L 10-35 ALT 18 U/L 9-46 Complete blood count (CBC) with automated white blood cell (WBC) differential - 10/15/18 01:22 Blood leukocytes automated count (number/volume) 13.4 10*3/uL 4.3-11.0 Blood erythrocytes automated count (number/volume) 4.71 10*6/uL 4.35-5.85 Venous blood hemoglobin measurement (mass/volume) 13.5 g/dL 13.3-17.7 Blood hematocrit (volume fraction) 40 % 40-54 Automated erythrocyte mean corpuscular volume 86 [foz_us] 80-99 Automated erythrocyte mean corpuscular hemoglobin (mass per erythrocyte) 29 pg 25-34 Automated erythrocyte mean corpuscular hemoglobin concentration measurement (mass/volume) 33 g/dL 32-36 Automated erythrocyte distribution width ratio 15.2 % 10.0- 14.5 Automated blood platelet count (count/volume) 315 10*3/uL 130-400 Automated blood platelet mean volume measurement 8.7 [foz_us] 7.4-10.4 Automated blood neutrophils/100 leukocytes 83 % 42-75 Automated blood lymphocytes/100 leukocytes 9 % 12-44 Blood monocytes/100 leukocytes 8 % 0-12 Automated blood eosinophils/100 leukocytes 0 % 0-10 Automated blood basophils/100 leukocytes 0 % 0-10 Blood neutrophils automated count (number/volume) 11.2 10*3 1.8-7.8 Blood lymphocytes automated count (number/volume) 1.1 10*3 1.0-4.0 Blood monocytes automated count (number/volume) 1.1 10*3 0.0- 1.0 Automated eosinophil count 0.0 10*3/uL 0.0-0.3 Automated blood basophil count (count/volume) 0.1 10*3/uL 0.0-0.1 Comprehensive metabolic panel - 10/15/18 02:50 Serum or plasma sodium measurement (moles/volume) 140 mmol/L 135-145 Serum or plasma potassium measurement (moles/volume) 3.8 mmol/L 3.6-5.0 Serum or plasma chloride measurement (moles/volume) 104 mmol/L 98-107 Carbon dioxide 21 mmol/L 21-32 Serum or plasma anion gap determination (moles/volume) 15 mmol/L 5-14 Serum or plasma urea nitrogen measurement (mass/volume) 28 mg/dL 7-18 Serum or plasma creatinine measurement (mass/volume) 1.96 mg/dL 0.60-1.30 Serum or plasma urea nitrogen/creatinine mass ratio 14 NRG Serum or plasma creatinine measurement with calculation of estimated glomerular filtration rate 34 NRG Serum or plasma glucose measurement (mass/volume) 75 mg/dL 70-105 Serum or plasma calcium measurement (mass/volume) 10.4 mg/dL 8.5-10.1 Serum or plasma total bilirubin measurement (mass/volume) 0.4 mg/dL 0.1-1.0 Serum or plasma alkaline phosphatase measurement (enzymatic activity/volume) 77 U/L 40-136 Serum or plasma aspartate aminotransferase measurement (enzymatic activity/volume) 30 U/L 5-34 Serum or plasma alanine aminotransferase measurement (enzymatic activity/volume) 25 U/L 0-55 Serum or plasma protein measurement (mass/volume) 7.4 g/dL 6.4-8.2 Serum or plasma albumin measurement (mass/volume) 4.4 g/dL 3.2-4.5 CALCIUM CORRECTED 10.1 mg/dL 8.5-10.1 Magnesium - 10/15/18 02:50 Magnesium 2.0 mg/dL 1.8-2.4 Serum or plasma creatine kinase measurement (enzymatic activity/volume) - 10/15/18 02:50 Serum or plasma creatine kinase measurement (enzymatic activity/volume) 485 U/L 30-200 Serum or plasma ethanol measurement (mass/volume) - 10/15/18 02:50 Serum or plasma ethanol measurement (mass/volume) < mg/dL <10 Complete urinalysis with reflex to culture - 10/15/18 05:15 Urine color determination YELLOW NRG Urine clarity determination SL CLOUDY NRG Urine pH measurement by test strip 5 5-9 Specific gravity of urine by test strip 1.025 1.016-1.022 Urine protein assay by test strip, semi-quantitative 2+ NEGATIVE Urine glucose detection by automated test strip NEGATIVE NEGATIVE Erythrocytes detection in urine sediment by light microscopy 1+ NEGATIVE Urine ketones detection by automated test strip 2+ NEGATIVE Urine nitrite detection by test strip NEGATIVE NEGATIVE Urine total bilirubin detection by test strip NEGATIVE NEGATIVE Urine urobilinogen measurement by automated test strip (mass/volume) NORMAL NORMAL Urine leukocyte esterase detection by dipstick 1+ NEGATIVE Automated urine sediment erythrocyte count by microscopy (number/high power field) [HPF] NRG Automated urine sediment leukocyte count by microscopy (number/high power field) [HPF] NRG Bacteria detection in urine sediment by light microscopy FEW NRG Squamous epithelial cells detection in urine sediment by light microscopy NONE NRG Crystals detection in urine sediment by light microscopy NONE NRG Casts detection in urine sediment by light microscopy PRESENT NRG Mucus detection in urine sediment by light microscopy MODERATE NRG Complete urinalysis with reflex to culture YES NRG Hyaline casts detection in urine sediment by light microscopy 0-2 NRG Granular casts detection in urine sediment by light microscopy 2-5 NRG WBC casts detection in urine sediment by light microscopy RARE NRG Encounters ACCT No. Visit Date/Time Discharge Status Pt. Type Provider Facility Loc./Unit Complaint [id number] 08/02/2014 08:57:00 08/02/2014 23:59:59 CLS Outpatient DE LEON DOSTEPHAN [id number] 02/11/2014 14:11:00 02/11/2014 23:59:59 CLS Outpatient DE LEON DOSTEPHAN [id number] 08/20/2013 09:40:00 08/20/2013 23:59:59 CLS Outpatient DE LEON DOSTEPHAN [id number] 04/08/2013 08:12:00 04/08/2013 23:59:59 CLS Outpatient DE LEON DOSTEPHAN [id number] 04/08/2013 08:12:00 04/08/2013 23:59:59 CLS Outpatient DE LEON DOSTEPHAN [id number] 02/09/2013 16:55:00 02/09/2013 23:59:59 CLS Outpatient DE LEON DOSTEPHAN [id number] 09/28/2012 09:55:00 09/28/2012 23:59:59 CLS Outpatient DE LEON DOSTEPHAN [id number] 07/27/2012 13:03:00 07/27/2012 23:59:59 CLS Outpatient DE LEON DOSTEPHAN [id number] 06/17/2012 10:08:00 06/17/2012 23:59:59 CLS Outpatient DE LEON DOSTEPHAN [id number] 06/03/2012 13:57:00 06/03/2012 23:59:59 CLS Outpatient [id number] 05/29/2012 08:42:00 05/29/2012 23:59:59 CLS Outpatient [id number] 05/25/2012 15:42:00 05/25/2012 23:59:59 CLS Outpatient [id number] 05/11/2012 08:11:00 05/11/2012 23:59:59 CLS Outpatient DE LEON DOSTEPHAN [id number] 03/06/2012 09:20:00 03/06/2012 23:59:59 CLS Outpatient DE LEON DOSTEPHAN [id number] 03/06/2012 09:20:00 03/06/2012 23:59:59 CLS Outpatient DE LEON DOSTEPHAN [id number] 02/28/2012 08:54:00 02/28/2012 23:59:59 CLS Outpatient DE LEON DOSTEPHAN [id number] 02/19/2012 09:00:00 02/19/2012 23:59:59 CLS Outpatient DE LEON DOSTEPHAN [id number] 10/15/2018 00:52:00 10/15/2018 06:25:00 DIS Emergency DERECK LEZAMA, MEDINA Weir [facility] ER FALL,KNEE PAIN [id number] 05/13/2018 09:09:00 05/13/2018 23:59:59 CLS Preadmit MOI LEZAMA, AGUSTÍN Nayak [facility] RAD CERVICAL RADICULOPATHY [id number] 12/08/2017 09:02:00 12/15/2017 13:40:00 DIS Inpatient AMIRAH SANDERS DO [facility] 4TH ACUTE ON CHRONIC RENAL FAILURE,FEVER [id number] 01/20/2013 16:09:00 04/20/2013 00:01:00 DIS Outpatient SONG RODRIGUES MD [facility] LAB RENAL INSUFFIENCEY [id number] 09/29/2012 13:37:00 12/28/2012 00:01:00 DIS Outpatient SONG RODRIGUES MD [facility] LAB RENAL [id number] 12/07/2012 14:39:00 12/07/2012 15:23:00 DIS Emergency DERECK LEZAMA, MEDINA Weir [facility] ER THRUSH [id number] 09/29/2012 12:57:00 09/29/2012 23:59:59 CLS Outpatient SONG RODRIGUES MD [facility] RAD RENAL INSUFFICIENCY [id number] 05/19/2018 23:58:00 Document Registration [id number] 05/19/2018 23:58:00 Document Registration [id number] 05/19/2018 23:58:00 Document Registration [id number] 05/19/2018 23:58:00 Document Registration [id number] 05/19/2018 23:58:00 Document Registration [id number] 04/21/2013 00:00:00 Document Registration [id number] 12/29/2012 00:00:00 Document Registration [id number] 06/10/2012 12:55:00 Document Registration [id number] 11/22/2010 13:19:00 Document Registration [id number] 07/06/2010 14:59:00 Document Registration [id number] 06/04/2010 10:56:00 Document Registration [id number] 10/31/2008 09:53:00 Document Registration [id number] 04/18/2008 14:34:00 Document Registration [id number] 02/05/2008 22:46:00 Document Registration [id number] 02/18/2007 12:51:00 Document Registration [id number] 09/28/2018 15:00:00 09/28/2018 23:59:59 [facility] MOI LEZAMA, AGUSTÍN [facility] [id number] 09/28/2018 15:00:00 Document Registration [id number] 05/27/2018 13:40:00 Document Registration [id number] 01/07/2018 11:00:00 Document Registration [id number] 08/25/2017 09:00:00 Document Registration
--- NOTE | 2018-10-15 10:55 | NUR ---
Pt talking to self in room. Pt denies needs at this time.
--- NOTE | 2018-10-15 11:01 | NUR ---
TRIM SETTER HELPER CONTACTED FOR BED PLACEMENT. SHE STATES SHE IS WAITING FOR DISCHARGES THEN WILL LET US KNOW OF A ROOM NUMBER.
--- NOTE | 2018-10-15 11:35 | NUR ---
Pt requested to wash face. Pt given warm washcloth and towel. Pt requesting hydrocodone; Dr. Khoury notified.
[2018-10-15] MEDS ORDERED: HYDROcodone/APAP 10 MG/325 MG (LORTAB) TAB PO STA (11:39)
--- NOTE | 2018-10-15 11:45 | NUR ---
Pt requesting food. Pt given menu at this time.
--- NOTE | 2018-10-15 12:30 | NUR ---
Pt assisted to and from the restroom at this time.
--- NOTE | 2018-10-15 12:40 | NUR ---
Pt taken lunch at this time.
--- NOTE | 2018-10-15 14:31 | NUR ---
Only belongings pt has at this time are two sets of keys, flip phone. Pt asked about teeth, but did not come to hospital with teeth in place.
--- NOTE | 2018-10-15 14:40 | NUR ---
CLARY DOWNEY admitted to room 415-1, with an admitting diagnosis of ACUTE RENAL INSUFFICIENCY, DEHYDRATION AND DELIRIUM, on 10/15/18 from ED via WHEELCHAIR, accompanied by ED RN. CLARY DOWNEY introduced to surroundings, call light, bed controls, phone, TV, temperature control, lights, meal times, smoking policy, visitor policy, side rail policy, bathrooms and showers. Patient Rights given to patient in the handbook. CLARY DOWNEY verbalizes understanding that [facility] is not responsible for the loss or damage to any personal effects or valuables that are kept in the patients possession during their hospitalization. The following Patient Care Plans were discussed with the PATIENT: Discharge Planning, DEHYDRATION and KNOWLEDGE DEFICIT. CLARY DOWNEY verbalizes understanding of Interdisciplinary Patient Education. Patient and/or family were informed about the Rapid Response Team and its purpose.
[2018-10-15 14:59] VITALS: BP 160/84
[2018-10-15] MEDS ORDERED: ONDANSETRON 4 MG/2 ML (SDV) Z0FRAN IV PRN (15:00)
--- OUTSIDE RECORDS SUMMARY | 2018-10-15 15:03 | XMS REPORT | Continuity of Care Document ---
Author Organization Unknown Address Unknown Allergies Active Description Code Type Severity Reaction Onset Reported/Identified Relationship to Patient Clinical Status Yes aspirin [id number] Drug Allergy Unknown N/A 02/06/2008 Yes NSAIDS (Non-Steroidal Anti-Inflamma [id number] Drug Allergy Unknown N/A 02/06/2008 Yes Penicillins [id number] Drug Allergy Unknown N/A 02/06/2008 Yes aspirin [...] K 372.30 Conjunctivitis 10/17/2008 DE LEON DO, STEPHNA K 372.30 Conjunctivitis 10/17/2008 DE LEON DO, [...] K 785.2 MURMURS, UNDIAGNOSED CARDIAC 05/30/2010 DE LOEN DO, STEPHAN K 785.9 CAROTID BRUIT 05/30/2010 [...] 380.4 Cerumen Impaction 12/17/2011 DE LEON DO, STEPAHN K 382.9 Unspecified Otitis Media 12/17/2011 DE [...] DO, STEPHAN K 275.42 HYPERCALCEMIA 12/18/2011 DE ELON DO, STEPHAN K 275.42 HYPERCALCEMIA 12/18/2011 DE [...] Z66 DO NOT RESUSCITATE 12/13/2017 TOMMY CASTILLO AMRIAH Ot Z87.891 PERSONAL HISTORY OF NICOTINE DEPENDENCE [...] AMIRAH Ot G47.9 SLEEP DISORDER, UNSPECIFIED 12/14/2017 TOMYM CASTILLO AMIRAH Ot G62.9 POLYNEUROPATHY, UNSPECIFIED 12/14/2017 [...] 02/06/2008 54.21 LAPAROSCOPY 11/22/2010 Yelitza Lainez 02/19/2012 96010 ROUTINE VENIPUNCTURE 05/11/2012 04852 CMP 05/11/2012 [id number] GFR CALC (RESULT ONLY) 05/11/2012 13602 LIPID PANEL 05/11/2012 22160 CALCIUM IONIZED 05/12/2012 26582 VITAMIN D 25-HYDROXY (D2,D3, TOTAL) 05/12/2012 19899 A1C (RML) 05/12/2012 5095381 CALCIUM (RESULT ONLY) 05/12/2012 1497338 PTH INTACT BILLY (RESULT ONLY) 05/12/2012 22604 PTH (intact) 05/26/2012 NEPHR Erick, Barbie 06/09/2012 89631 US RENAL ULTRASOUND, COMP 06/10/2012 50652 ROUTINE VENIPUNCTURE 06/17/2012 70196 LIVER PANEL (LFT) 06/17/2012 7757555 GFR CALC (RESULT ONLY) 06/17/2012 18637 LIPID PANEL 06/17/2012 73156 CBC 06/17/2012 07434 RENAL PROFILE 06/17/2012 24733 UA W/ CULTURE IF INDICATED 07/27/2012 PRO/CRE URINE PROTEIN TO CREATNINE RATIO 07/27/2012 57441 URINE DRUG SCREEN (IN-HOUSE) 02/09/2013 65818 XRAY CHEST 2 VIEW 04/08/2013 72524 ROUTINE VENIPUNCTURE 08/20/2013 90180 CBC 08/20/2013 8181263 GFR CALC (RESULT ONLY) 08/20/2013 95673 CMP 08/20/2013 80726 LIPID PANEL 08/20/2013 09701 ROUTINE VENIPUNCTURE 02/11/2014 09823 CMP 02/11/2014 8640398 GFR CALC (RESULT ONLY) 02/11/2014 94461 ROUTINE VENIPUNCTURE 08/02/2014 51494 A1C (IN-HOUSE) 08/02/2014 5733306 GFR CALC (RESULT ONLY) 08/02/2014 99987 CMP 08/02/2014 35108 LIPID PANEL 08/02/2014 [id number] INSPECTION OF BLADDER, ENDO 12/12/2017 Results Test Result Range CMP - 08/25/17 08:52 GLUCOSE 86 mg/dL 65-99 UREA NITROGEN (BUN) 17 mg/dL 7-25 CREATININE 1.42 mg/dL 0.70-1.25 eGFR NON-AFR. BURMESE 51 mL/min/1.73m2 > OR=60 eGFR 59 mL/min/1.73m2 [...] RX BLOOD COMPONENT A POS FFP NR [id number] NRG [id number] OK NRG [id number] NORMAL NRG Bacterial blood culture NOT INDICATED [...] NEGATIVE FOR ANTIGEN AND TOXIN A/B [facility] [id number] - 12/12/17 03:10 Stool bacteria identification by [...] 7-25 CREATININE 1.38 mg/dL 0.70-1.25 eGFR NON-AFR. BURMESE 53 mL/min/1.73m2 > OR=60 eGFR 61 mL/min/1.73m2 [...] urine sediment by light microscopy RARE NRG Complete blood count (CBC) with automated white blood cell (WBC) differential - 10/15/18 09:25 Blood leukocytes automated count (number/volume) 12.5 10*3/uL 4.3-11.0 Blood erythrocytes automated count (number/volume) 4.45 10*6/uL 4.35-5.85 Venous blood hemoglobin measurement (mass/volume) 12.8 g/dL 13.3-17.7 Blood hematocrit (volume fraction) 38 % 40-54 Automated erythrocyte mean corpuscular volume 86 [foz_us] 80-99 Automated erythrocyte mean corpuscular hemoglobin (mass per erythrocyte) 29 pg 25-34 Automated erythrocyte mean corpuscular hemoglobin concentration measurement (mass/volume) 33 g/dL 32-36 Automated erythrocyte distribution width ratio 15.1 % 10.0- 14.5 Automated blood platelet count (count/volume) 320 10*3/uL 130-400 Automated blood platelet mean volume measurement 8.8 [foz_us] 7.4-10.4 Automated blood neutrophils/100 leukocytes 81 % 42-75 Automated blood lymphocytes/100 leukocytes 11 % 12-44 Blood monocytes/100 leukocytes 7 % 0-12 Automated blood eosinophils/100 leukocytes 0 % 0-10 Automated blood basophils/100 leukocytes 0 % 0-10 Blood neutrophils automated count (number/volume) 10.1 10*3 1.8-7.8 Blood lymphocytes automated count (number/volume) 1.4 10*3 1.0-4.0 Blood monocytes automated count (number/volume) 0.9 10*3 0.0- 1.0 Automated eosinophil count 0.0 10*3/uL 0.0-0.3 Automated blood basophil count (count/volume) 0.0 10*3/uL 0.0-0.1 Comprehensive metabolic panel - 10/15/18 09:25 Serum or plasma sodium measurement (moles/volume) 139 mmol/L 135-145 Serum or plasma potassium measurement (moles/volume) 4.3 mmol/L 3.6-5.0 Serum or plasma chloride measurement (moles/volume) 105 mmol/L 98-107 Carbon dioxide 21 mmol/L 21-32 Serum or plasma anion gap determination (moles/volume) 13 mmol/L 5-14 Serum or plasma urea nitrogen measurement (mass/volume) 29 mg/dL 7-18 Serum or plasma creatinine measurement (mass/volume) 1.86 mg/dL 0.60-1.30 Serum or plasma urea nitrogen/creatinine mass ratio 16 NRG Serum or plasma creatinine measurement with calculation of estimated glomerular filtration rate 36 NRG Serum or plasma glucose measurement (mass/volume) 86 mg/dL 70-105 Serum or plasma calcium measurement (mass/volume) 9.6 mg/dL 8.5-10.1 Serum or plasma total bilirubin measurement (mass/volume) 0.4 mg/dL 0.1-1.0 Serum or plasma alkaline phosphatase measurement (enzymatic activity/volume) 77 U/L 40-136 Serum or plasma aspartate aminotransferase measurement (enzymatic activity/volume) 36 U/L 5-34 Serum or plasma alanine aminotransferase measurement (enzymatic activity/volume) 24 U/L 0-55 Serum or plasma protein measurement (mass/volume) 7.3 g/dL 6.4-8.2 Serum or plasma albumin measurement (mass/volume) 4.3 g/dL 3.2-4.5 CALCIUM CORRECTED 9.4 mg/dL 8.5-10.1 THYROID STIMULATING HORMONE - 10/15/18 09:25 THYROID STIMULATING HORMONE 1.66 u[iU]/mL 0.35-4.94 Serum or plasma C reactive protein measurement (mass/volume) - 10/15/18 09:25 Serum or plasma C reactive protein measurement (mass/volume) 0.59 mg/dL 0.00-0.50 Encounters ACCT No. Visit Date/Time Discharge Status Pt. Type Provider Facility Loc./Unit Complaint [id number] 08/02/2014 08:57:00 08/02/2014 23:59:59 [facility] Outpatient STEPHAN DE LEON DO [id number] 02/11/2014 14:11:00 02/11/2014 23:59:59 [facility] Outpatient STEPHAN DE LEON DO [id number] 08/20/2013 09:40:00 08/20/2013 23:59:59 [facility] Outpatient STEPHAN DE LEON DO [id number] 04/08/2013 08:12:00 04/08/2013 23:59:59 [facility] Outpatient STEPHAN DE LEON DO [id number] 04/08/2013 08:12:00 04/08/2013 23:59:59 [facility] Outpatient STEPHAN DE LEON DO [id number] 02/09/2013 16:55:00 02/09/2013 23:59:59 [facility] Outpatient STEPHAN DE LEON DO [id number] 09/28/2012 09:55:00 09/28/2012 23:59:59 [facility] Outpatient STEPHAN DE LEON DO [id number] 07/27/2012 13:03:00 07/27/2012 23:59:59 [facility] Outpatient STEPHAN DE LEON DO [id number] 06/17/2012 10:08:00 06/17/2012 23:59:59 [facility] Outpatient STEPHAN DE LEON DO [id number] 06/03/2012 13:57:00 06/03/2012 23:59:59 [facility] Outpatient [id number] 05/29/2012 08:42:00 05/29/2012 23:59:59 [facility] Outpatient [id number] 05/25/2012 15:42:00 05/25/2012 23:59:59 [facility] Outpatient [id number] 05/11/2012 08:11:00 05/11/2012 23:59:59 [facility] Outpatient STEPHAN DE LEON DO [id number] 03/06/2012 09:20:00 03/06/2012 23:59:59 [facility] Outpatient STEPHAN DE LEON DO [id number] 03/06/2012 09:20:00 03/06/2012 23:59:59 [facility] Outpatient STEPHAN DE LEON DO [id number] 02/28/2012 08:54:00 02/28/2012 23:59:59 [place] [id number] 02/19/2012 09:00:00 02/19/2012 23:59:59 [facility] Outpatient STEPHAN DE LEON DO [id number] 10/15/2018 00:52:00 10/15/2018 06:25:00 DIS Emergency DERECK LEZAMA, MEDINA Weir [facility] ER FALL,KNEE PAIN [id number] 05/13/2018 09:09:00 05/13/2018 23:59:59 CLS Preadmit MOI LEZAMA, AGUSTÍN Nayak [facility] RAD CERVICAL RADICULOPATHY [id number] 12/08/2017 09:02:00 12/15/2017 13:40:00 DIS Inpatient AMIRAH SANDERS DO [facility] 4TH ACUTE ON CHRONIC RENAL FAILURE,FEVER [id number] 01/20/2013 16:09:00 04/20/2013 00:01:00 DIS Outpatient SONG RODRIGUES MD [facility] LAB RENAL INSUFFIENCEY [id number] 09/29/2012 13:37:00 12/28/2012 00:01:00 DIS Outpatient SONG RODRIGUES MD [facility] LAB RENAL [id number] 12/07/2012 14:39:00 12/07/2012 15:23:00 DIS Emergency DERECK LEZAMA, MEDINA Weir [facility] ER THRUSH [id number] 09/29/2012 12:57:00 09/29/2012 23:59:59 [facility] Outpatient SONG RODRIGUES MD [facility] RAD RENAL INSUFFICIENCY [id number] 10/15/2018 09:53:00 Document Registration [id number] 05/19/2018 23:58:00 Document Registration [id number] 05/19/2018 23:58:00 Document Registration [id number] 05/19/2018 23:58:00 Document Registration [id number] 05/19/2018 23:58:00 Document Registration [id number] 05/19/2018 23:58:00 Document Registration [id number] 04/21/2013 00:00:00 Document Registration [id number] 12/29/2012 00:00:00 Document Registration [id number] 06/10/2012 12:55:00 Document Registration [id number] 11/22/2010 13:19:00 Document Registration [id number] 07/06/2010 14:59:00 Document Registration [id number] 06/04/2010 10:56:00 Document Registration [id number] 10/31/2008 09:53:00 Document Registration [id number] 04/18/2008 14:34:00 Document Registration [id number] 02/05/2008 22:46:00 Document Registration [id number] 02/18/2007 12:51:00 Document Registration [id number] 09/28/2018 15:00:00 09/28/2018 23:59:59 [facility] Out[facility] MOI LE[facility] [place] [id number] 09/28/2018 15:00:00 Document Registration [id number] 05/27/2018 13:40:00 Document Registration [id number] 01/07/2018 11:00:00 Document Registration [id number] 08/25/2017 09:00:00 Document Registration
--- NOTE | 2018-10-15 15:05 | NUR ---
Pharmacy called for med rec.
[2018-10-15 15:40] VITALS: BP 164/83
[2018-10-15] MEDS: NS IV 1000 ML 1,000 ML IV SCH (15:41)
[2018-10-15] MEDS ORDERED: TEST200V21 IM (15:56)
[2018-10-15] MEDS ORDERED: EZET10TA49 PO (15:56)
[2018-10-15] MEDS ORDERED: ALPR2TAB6 PO (15:56)
[2018-10-15] MEDS ORDERED: ENAL20TA PO (15:56)
[2018-10-15] MEDS ORDERED: CHLO100T22 PO (15:56)
[2018-10-15] MEDS ORDERED: QUET200T57 PO (15:56)
[2018-10-15] MEDS ORDERED: ACID1TAB PO (16:27)
--- NOTE | 2018-10-15 16:44 | NUR ---
SPOKE WITH PATIENT ABOUT HIS MEDICATIONS. HE WAS ABLE TO VERIFY ALL HIS MEDICATIONS, I ALSO WENT OVER HIS EXTERNAL MED HISTORY. ON 07-24-2018 HE PICKED THIORIDAZINE #60/30DS - HOWEVER IT IS ON A BACKORDER. HE QUIT TAKING THE CHLORPROMAZINE BECAUSE OF AN ALLERGIC REACTION IT CAUSED. OTC MEDICATIONS: ASPIRIN FERROUS SULFATE COQ10
--- NOTE | 2018-10-15 16:58 | NUR ---
NOTIFIED DR CAREY HOME MED LIST IS DONE
[2018-10-15] MEDS ORDERED: ALPRAZOLAM 1 MG PO PRN (19:00)
[2018-10-15] MEDS ORDERED: HYDROcodone/APAP 10 MG/325 MG (LORTAB) TAB PO PRN (19:00)
[2018-10-15 19:10] VITALS: BP 167/85
[2018-10-15] MEDS ORDERED: ALPRAZolam 1 MG (XANAX) TAB PO PRN (19:15)
[2018-10-15] MEDS ORDERED: CATHETER FLUSH 10 ML SYR IV PRN (19:30)
[2018-10-15] MEDS: CARISOPRODOL 350 MG (SOMA) TAB PO SCH (20:02)
[2018-10-15] MEDS ORDERED: NON-FORMULARY MEDICATION 1 EA EA (Carisoprodol 350 MG) PO SCH (21:00)
[2018-10-16 00:21] VITALS: BP 159/83
[2018-10-16] MEDS: NS IV 1000 ML 1,000 ML IV SCH ×2 (02:44→11:41)
[2018-10-16 04:05] VITALS: BP 125/74
[2018-10-16 07:16] LABS: BASOPHILS % (AUTO) 1 % (0-10); EOSINOPHILS # (AUTO) 0.2 10^3/uL (0.0-0.3); EOSINOPHILS % (AUTO) 2 % (0-10); HEMATOCRIT 40 % (40-54); HEMOGLOBIN 12.8 G/DL (13.3-17.7); LYMPHOCYTES # (AUTO) 1.4 X 10^3 (1.0-4.0); LYMPHOCYTES % (AUTO) 16 % (12-44); MEAN CORPUSCULAR HEMOGLOBIN 28 PG (25-34); MEAN CORPUSCULAR HGB CONC 32 G/DL (32-36); MEAN CORPUSCULAR VOLUME 87 FL (80-99); MEAN PLATELET VOLUME 8.7 FL (7.4-10.4); MONOCYTES # (AUTO) 0.7 X 10^3 (0.0-1.0); MONOCYTES % (AUTO) 8 % (0-12); NEUTROPHILS # (AUTO) 6.4 X 10^3 (1.8-7.8); NEUTROPHILS % (AUTO) 74 % (42-75); PLATELET COUNT 296 10^3/uL (130-400); RED CELL DISTRIBUTION WIDTH 15.2 % (10.0-14.5); WHITE BLOOD COUNT 8.7 10^3/uL (4.3-11.0)
[2018-10-16 07:41] LABS: ALANINE AMINOTRANSFERASE 27 U/L (0-55); ALKALINE PHOSPHATASE 74 U/L (40-136); BILIRUBIN,TOTAL 0.4 MG/DL (0.1-1.0); BUN/CREATININE RATIO 17; CALCIUM 8.9 MG/DL (8.5-10.1); CARBON DIOXIDE 21 MMOL/L (21-32); CHLORIDE 107 MMOL/L (98-107); CREATININE SERUM 1.03 MG/DL (0.60-1.30); GFR ESTIMATED > 60; GLUCOSE 66 MG/DL (70-105); POTASSIUM 3.7 MMOL/L (3.6-5.0); SODIUM 139 MMOL/L (135-145); TOTAL PROTEIN 6.8 GM/DL (6.4-8.2)
[2018-10-16 08:14] VITALS: BP 158/83
[2018-10-16] MEDS: CARISOPRODOL 350 MG (SOMA) TAB PO SCH ×2 (08:48→12:37)
[2018-10-16] MEDS ORDERED: amLODIPine 10 MG (NORVASC) TAB PO SCH (09:00)
[2018-10-16] MEDS ORDERED: NON-FORMULARY MEDICATION 1 EA EA (Amlodipine Besylate 10 MG) PO SCH (09:00)
[2018-10-16] MEDS ORDERED: ENALAPRIL 10 MG (VASOTEC) TAB PO SCH (09:00)
[2018-10-16] MEDS ORDERED: ASPIRIN E.C. 81 MG (ECOTRIN) TAB PO SCH (09:00)
[2018-10-16] MEDS ORDERED: eZETimibe 10 MG (ZETIA) TABLET PO SCH (09:00)
[2018-10-16] MEDS ORDERED: FERROUS SULF 325 MG (IRON) TAB PO SCH (09:00)
[2018-10-16 12:00] VITALS: BP 158/82
--- NOTE | 2018-10-16 12:33 | Discharge Instructions ---
Discharge [facility] Discharge Medications Continued Medications: Alprazolam (Alprazolam) 2 Mg Tablet 1 MG PO QID PRN for ANXIETY, TAB TAKES 1/2 OF A 2 MG TAB Amlodipine Besylate (Amlodipine Besylate) 10 Mg Tablet 10 MG PO DAILY, TAB Aspirin (Aspirin EC) 81 Mg Tablet.dr 81 MG PO BID, TAB Carisoprodol (Carisoprodol) 350 Mg Tablet 350 MG PO QID, TAB Enalapril Maleate (Enalapril Maleate) 20 Mg Tablet 20 MG PO BID Ezetimibe (Ezetimibe) 10 Mg Tablet 10 MG PO DAILY, TAB Ferrous Sulfate (Iron) 325 Mg Tablet 325 MG PO DAILY, TAB Fluticasone Propionate (Fluticasone Propionate) 16 Gm [place].susp 2 SPRAY NS HS, SPRAY Hydrocodone/Acetaminophen (Hydrocodon-Acetaminophn 10-325) 1 Each Tablet 1 TAB PO Q6H PRN for PAIN-MODERATE for 28 Days, #112 TAB L. Acidophilus/Bulgaricus (Floranex Tablet) 1 Each Tablet 1 TAB PO DAILY, TAB Multivitamin (Daily Vitamin Formula) 1 Each Tablet 1 TAB PO DAILY, TAB Perphenazine/Amitriptyline HCl (Perphen-Amitrip 2 mg-25 mg Tab) 1 Each Tablet 6 TAB PO HS, TAB Quetiapine Fumarate (Quetiapine Fumarate) 200 Mg Tablet 200 MG PO HS Testosterone Cypionate (Testosterone Cypionate) 200 Mg/1 Ml Vial 2 ML IM We Thioridazine HCl (Thioridazine HCl) 100 Mg Tablet 200 MG PO HS, TAB LAST FILLED 07-24-18 (BACKORDERED @ PHARMACY) TAKES 2 (100MG) TABLETS Tizanidine HCl (Tizanidine HCl) 4 Mg Tablet 4 MG PO TID PRN for MUSCLE SPASMS, TAB Ubidecarenone/Vit E Acetate (Co Q-10 100 mg Softgel) 1 Each Capsule 200 MG PO BID, CAP Patient Instructions Goal/Follow Up Appt: Follow up with Dr. Ring on October 19 at 9:40 am. Return to [facility] For: Confusion, excess drowsiness, inability to keep down medications Activity & Diet Discharge Diet: Low Sodium Diet Activity as Tolerated: Yes Orders-Post D/C & Referrals Pneu Vac Indicated: Yes BERRY CAREY MD Oct 16, 2018 12:33
--- NOTE | 2018-10-16 13:30 | NUR ---
RX REVIEWED AND INST GIVEN AND VERBALIZED UNDERSTANDING. AWAITING RIDE FOR DISCHARGE.
--- NOTE | 2018-10-16 14:00 | NUR ---
DC'D WITH FRIEND TO HOME.
--- NOTE | 2018-10-16 15:11 | Short Stay Summary ---
History of Present Illness History of Present Illness Reason for visit/HPI 68 yo male brought to ER due to confusion. He states he does not feel confused at this time, police thought he was confused. He reported an episode of a neighbor choking and Heimlich maneuver which apparently did not happen. However, he does have baseline diagnosis of schizophrenia. He also was found to have JESSICA. Date of Admission Oct 15, 2018 at 14:07 Date of Discharge Oct 16, 2018 at 14:00 Time Seen by Provider: 11:25 Attending Physician Berry Velarde MD Admitting Physician Agustín Prater MD Consult Allergies and Home Medications Allergies Coded Allergies: NSAIDS (Non-Steroidal Anti-Inflamma (Verified Allergy, Unknown, 02/06/08) Penicillins (Verified Allergy, Unknown, 02/06/08) aspirin (Verified Allergy, Unknown, 02/06/08) chlorpromazine (Verified Allergy, Unknown, 10/15/18) Uncoded Allergies: NON STEROIDOL ANTI INFLAMTORY (Allergy, Mild, 09/04/08) Home Medications Alprazolam 2 Mg Tablet, 1 MG PO QID PRN for ANXIETY, (Reported) TAKES 1/2 OF A 2 MG TAB Amlodipine Besylate 10 Mg Tablet, 10 MG PO DAILY, (Reported) Aspirin 81 Mg Tablet.dr, 81 MG PO BID, (Reported) Carisoprodol 350 Mg Tablet, 350 MG PO QID, (Reported) Enalapril Maleate 20 Mg Tablet, 20 MG PO BID, (Reported) Ezetimibe 10 Mg Tablet, 10 MG PO DAILY, (Reported) Ferrous Sulfate 325 Mg Tablet, 325 MG PO DAILY, (Reported) Fluticasone Propionate 16 Gm [place].susp, 2 SPRAY NS HS, (Reported) Hydrocodone/Acetaminophen 1 Each Tablet, 1 TAB PO Q6H PRN for PAIN-MODERATE Prescribed by: MARIANA RUTHERFORD on 12/15/17 1141 L. Acidophilus/Bulgaricus 1 Each Tablet, 1 TAB PO DAILY, (Reported) Multivitamin 1 Each Tablet, 1 TAB PO DAILY, (Reported) Perphenazine/Amitriptyline HCl 1 Each Tablet, 6 TAB PO HS, (Reported) Quetiapine Fumarate 200 Mg Tablet, 200 MG PO HS, (Reported) Testosterone Cypionate 200 Mg/1 Ml Vial, 2 ML IM We, (Reported) Thioridazine HCl 100 Mg Tablet, 200 MG PO HS, (Reported) LAST FILLED 07-24-18 (BACKORDERED @ PHARMACY) TAKES 2 (100MG) TABLETS Tizanidine HCl 4 Mg Tablet, 4 MG PO TID PRN for MUSCLE SPASMS, (Reported) Ubidecarenone/Vit E Acetate 1 Each Capsule, 200 MG PO BID, (Reported) Patient Home Medication List Home Medication List Reviewed: Yes Past Whbpszj-Lqhfei-Jlvjvb Hx Patient Social History Alcohol Use: Rarely Uses Number of Drinks Today: 0 Alcohol Beverage of Choice: Beer Recreational Drug Use: No Smoking Status: Former Smoker Former Smoker, Quit: Apr 21, 2015 Type Used: Cigarettes Physical Abuse Screen: No Sexual Abuse: No Recent Foreign Travel: No Contact w/other who traveled: No Recent Hopitalizations: No Recent Infectious Disease Expo: No Immunizations Up To Date Tetanus Booster (TDap): Unknown Seasonal Allergies Seasonal Allergies: No Surgeries Yes Abdominal, Orthopedic Respiratory Yes (spontaneous pneumothorax) Currently Using CPAP: No Currently Using BIPAP: No Cardiovascular Yes High Cholesterol, Hypertension Neurological Yes (polyneuropathy, 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) Reproductive System Hx Reproductive Disorders: No Genitourinary No Renal Failure Gastrointestinal Yes (history of bowel perforation and left hemicolectomy) Musculoskeletal Yes (chronic musculoskeletal pain from polyneuropathy) Arthritis, Chronic Back Pain Endocrine History of Endocrine Disorders: Yes HEENT History of HEENT Disorders: Yes (chronic sinus problems-SMALL) Cancer No Psychosocial History of Psychiatric Problem: Yes Behavioral Health Disorders: Sleep Difficulties, Anxiety, Depression Integumentary History of Skin or Integumenta: No Blood Transfusions History of Blood Disorders: No Family Medical History Significant Family History: Other Conditions/Hx Family Hx: Neoplasm 19 MOTHER (SMALL AMOUNT OF SKIN CANCER) Review of Systems Constitutional: other (difficult to obtain from patient, he denies concerns) Physical Exam Vital Signs Vital Signs - First Documented 10/15/18 10/16/18 09:21 08:14 Temp 98.6 Pulse 112 Resp 22 B/P (MAP) 139/94 (109) Pulse Ox 95 O2 Delivery Room Air O2 Flow Rate 0.00 Capillary Refill : Less Than 3 SecondsLess Than 3 Seconds Height, Weight, BMI Height: 5'11.00" Weight: 190lbs. 2.0oz. 86.266605zi; 26.5 BMI Method:Stated General Appearance: No Apparent Distress Respiratory: Lungs Clear, Normal Breath Sounds Cardiovascular: Regular Rate, Rhythm, No Murmur Extremity: No Pedal Edema Neurologic/Psychiatric: Alert, Oriented x3 Skin: Normal Color, Warm/Dry Clinical Quality Measures DVT/VTE Risk/Contraindication: Risk Factor Score Per Nursin RFS Level Per Nursing on Admit: 3=High Short Stay Diagnosis Discharge Diagnosis-Short Stay Admission Diagnosis: Altered mental status Acute kidney injury Schizophrenia Final Discharge Diagnosis: Altered mental status- unclear etiology, labs unremarkable, possible psychosis from underlying disease. Stable am of d/c. JESSICA resolved Schizophrenia- discussed on multiple sedating medications, recommend Psychiatry opinion. Conclusion Labs Laboratory Tests 10/16/18 06:31: White Blood Count 8.7, Red Blood Count 4.53, Hemoglobin 12.8L, Hematocrit 40, Mean Corpuscular Volume 87, Mean Corpuscular Hemoglobin 28, Mean Corpuscular Hemoglobin Concent 32, Red Cell Distribution Width 15.2H, Platelet Count 296, Mean Platelet Volume 8.7, Neutrophils (%) (Auto) 74, Lymphocytes (%) (Auto) 16, Monocytes (%) (Auto) 8, Eosinophils (%) (Auto) 2, Basophils (%) (Auto) 1, Neutrophils # (Auto) 6.4, Lymphocytes # (Auto) 1.4, Monocytes # (Auto) 0.7, Eosinophils # (Auto) 0.2, Basophils # (Auto) 0.0, Sodium Level 139, Potassium Level 3.7, Chloride Level 107, Carbon Dioxide Level 21, Anion Gap 11, Blood Urea Nitrogen 18, Creatinine 1.03, Estimat Glomerular Filtration Rate > 60, BUN/Creatinine Ratio 17, Glucose Level 66L, Calcium Level 8.9, Corrected Calcium 8.9, Total Bilirubin 0.4, Aspartate Amino Transf (AST/SGOT) 31, Alanine Aminotransferase (ALT/SGPT) 27, Alkaline Phosphatase 74, Total Protein 6.8, Albumin 4.0 Conclusion/Plan See discharge diagnosis Copy Copies To 1: AGUSTÍN PRATER MD,BERRY Byers MD Oct 16, 2018 15:11
[2018-10-16] MEDS ORDERED: FLUTICASONE NASAL SPRAY (FLONASE) 16 GM BTL NS SCH (21:00)
[2018-10-16] MEDS ORDERED: QUEtiapine 200 MG (SEROquel) TAB IMMEDIATE RELEASE PO SCH (21:00)
== END 2018-10-16 12:04 | disposition home or self-care (01) ==
LOC: EDUNIT# 09:21 → ER 09:22 → 4TH 14:07 → UNDOADMOB 14:07 → 4TH 14:40 → UNDODISOB 10-16 14:00
PROVIDERS: ADMIT Family Medicine; ATTEND Family Medicine
DX: R41.82 Altered mental status, unspecified (principal); N17.9 Acute kidney failure, unspecified; F20.9 Schizophrenia, unspecified; I10 Essential (primary) hypertension; E78.00 Pure hypercholesterolemia, unspecified; G62.9 Polyneuropathy, unspecified; Z87.891 Personal history of nicotine dependence; Z79.82 Long term (current) use of aspirin; Z79.899 Other long term (current) drug therapy
CPT/HCPCS: 36415; 80053; 84443; 85025; 86141; 96360; 99211; G0378

== ENCOUNTER 2019-08-28 08:40 | Emergency (ER) | payer MEDICARE ==
[~2019-08-28] VITALS: Ht 180 cm; Wt 95.2 kg
[~2019-08-28 08:40] MED LIST changes: +ACHYD1T PO; +ASCO500T17 PO; -ASCO500T6 PO; +CHLO100T22 PO; +EZET10TA17 PO; +EZET10TA49 PO; -EZET10TA5 PO; -HYDR-3820 PO; +QUET200T29 PO; -TAMS0.4C98 PO; -TIZA4TAB3 PO; +TIZA4TAB4 PO; +TMSL.4C PO
--- OUTSIDE RECORDS SUMMARY | 2019-08-28 08:45 | XMS REPORT ---
Author Author Dixon DE LEON [facility] Address [address] [place] [address] Care Team Providers Care Hospitality Services Manager Name Role Phone STEPHAN DE LEON Unavailable PROBLEMS Type Condition ICD9-CM Code [id number] Code Onset Dates Condition S tatus SNOMED Code Problem HTN (hypertension) I10 Active 3 5792954 Problem Anxiety F41.9 Active 96007839 Problem Schizophrenia, unspecified type F20.9 Active 57497962 Problem Age-related cataract of both eyes, unspecified age-related cataract type H25.9 Active 93429228 Problem Hyperlipidemia E78.5 Active 65277 004 Problem Constipation K59.00 Active 1957722 8 Problem Thoracic back pain, unspecif ied back pain laterality, unspecified chronicity M54.6 Active 079825002 Problem Environmental allergies Z91.09 Active 590935618 ALLERGIES No Information ENCOUNTERS Encounter Location Date Diagnosis [place] [address] [facility] [id number] [address] [place] [id number] August, [facility] [address] [id number] [address] [place] [phone] August, [facility] [address] [facility] [id number] [address] [place] [phone] August, [facility] [address] [id number] [address] [place] [phone] August, Thoracic back pain, unspecif ied back pain laterality, unspecified chronicity M54.6 [facility] [address] [facility] [id number] [address] [place] [phone] August, [facility] [address] [facility] [id number] [address] [place] [phone] Jul, Anxiety F41.9 and Thoracic b ack pain, unspecified back pain laterality, unspecified chronicity M54.6 [facility] [address] [id number] [address] [place] [phone] 30 Jul, 2019 [facility] [address] [id number] [address] [place] [phone] Jul, [facility] [address] [id number] [address] [place] [phone] Jul, Thoracic back pain, unspecif ied back pain laterality, unspecified chronicity M54.6 ; Anxiety F41.9 and Constipation K59.00 [facility] [address] [id number] [address] [place] [phone] Jul, Psychophysiological insomnia F51.04 [facility] [address] [id number] [address] [place] [phone] Jul, [facility] [address] [id number] [address] [place] [id number] Jul, [facility] [address] [id number] [address] [place] [phone] Jul, [facility] [address] [id number] [address] [place] [id number] Jul, [facility] [address] [id number] [address] [place] [id number] Jul, Thoracic back pain, unspecif ied back pain laterality, unspecified chronicity M54.6 [facility] [address] [id number] [address] [place] [id number] Jul, Anxiety F41.9 and Thoracic b ack pain, unspecified back pain laterality, unspecified chronicity M54.6 [facility] [address] [id number] [address] [place] [id number] Jun, [facility] [address] [id number] [address] [place] [id number] Jun, Thoracic back pain, unspecif ied back pain laterality, unspecified chronicity M54.6 [facility] [address] [id number] [address] [place] [phone] 09 Jun, 2019 [facility] [address] [id number] [address] [place] [id number] 04 Jun, 2019 Anxiety F41.9 and Thoracic b ack pain, unspecified back pain laterality, unspecified chronicity M54.6 [facility] [address] [id number] [address] [place] [phone] 04 Jun, 2019 [facility] [address] [id number] [address] [place] [phone] May, [facility] [address] [id number] [address] [place] [phone] May, Psychophysiologic insomnia F 51.04 [facility] [address] [facility] [id number] [address] [place] [phone] May, Other constipation K59.09 [facility] [address] [id number] [address] [place] [id number] 11 May, 2019 Thoracic back pain, unspecif ied back pain laterality, unspecified chronicity M54.6 [facility] [address] [id number] [address] [place] [id number] 06 May, 2019 Anxiety F41.9 and Thoracic b ack pain, unspecified back pain laterality, unspecified chronicity M54.6 [facility] [address] [id number] [address] [place] [phone] May, [facility] [address] [id number] [address] [place] [phone] Apr, [facility] [address] [id number] [address] [place] [phone] Apr, [facility] [address] [id number] [address] [place] [phone] Apr, Psychophysiological insomnia F51.04 [facility] [address] [id number] [address] [place] [id number] 15 Apr, 2019 Thoracic back pain, unspecif ied back pain laterality, unspecified chronicity M54.6 [place] [address] [place] [id number] [address] [place] [phone] Apr, Thoracic back pain, unspecif ied back pain laterality, unspecified chronicity M54.6 [place] [address] [place] [id number] [address] [place] [address] Apr, Anxiety F41.9 [place] [address] [place] [id number] [address] [place] [phone] Apr, Psychophysiological insomnia F51.04 [place] [id number] [place] [address] 30 Mar, 2019 Encounter for Medicare annua l wellness exam Z00.00 ; HTN (hypertension) I10 ; Hyperlipidemia E78.5 ; Thoracic back pain, unspecified back pain laterality, unspecified chronicity M54.6 ; Screening for colon cancer Z12.11 ; History of smoking Z87.891 ; Screening for abdominal aortic aneurysm Z13.6 ; Encounter for immunization Z23 ; Chronic kidney disease, stage III (moderate) N18.3 ; Schizophrenia, unspecified type F20.9 ; Psychophysiological insomnia F51.04 and Age-related cataract of both eyes, unspecified age-related cataract type H25.9 [place] [address] [place] [id number] [address] [place] [address] Mar, Thoracic back pain, unspecif ied back pain laterality, unspecified chronicity M54.6 [place] [address] [facility] [id number] [address] [place] [address] Mar, Psychophysiological insomnia F51.04 [place] [address] [place] [id number] [address] [place] [phone] Mar, Thoracic back pain, unspecif ied back pain laterality, unspecified chronicity M54.6 and Anxiety F41.9 [place] [address] [place] [id number] [address] [place] [address] Mar, Psychophysiological insomnia F51.04 [facility] [address] [id number] [address] [place] [id number] Mar, [facility] [address] [id number] [address] [place] [phone] Mar, Psychophysiological insomnia F51.04 [facility] [address] [id number] [address] [place] [address] Mar, [facility] [address] [id number] [address] [place] [phone] Feb, [facility] [address] [id number] [address] [place] [phone] Feb, Thoracic back pain, unspecif ied back pain laterality, unspecified chronicity M54.6 [facility] [address] [id number] [address] [place] [phone] Feb, Anxiety F41.9 and Thoracic b ack pain, unspecified back pain laterality, unspecified chronicity M54.6 [facility] [address] [id number] [address] [place] [id number] Feb, Insomnia G47.00 ; HTN (hyper tension) I10 and Constipation K59.00 [facility] [address] [id number] [address] [place] [id number] Feb, [facility] [address] [facility] [id number] [address] [place] [phone] Jan, Thoracic back pain, unspecif ied back pain laterality, unspecified chronicity M54.6 [facility] [address] [id number] [address] [place] [address] Jan, Anxiety F41.9 [facility] [address] [facility] [id number] [address] [place] [address] Jan, Anxiety F41.9 [facility] [address] [facility] [id number] [address] [place] [phone] Jan, Anxiety F41.9 and Thoracic b ack pain, unspecified back pain laterality, unspecified chronicity M54.6 [facility] [address] [id number] [address] [place] [phone] Jan, [facility] [address] [id number] [address] [place] [phone] Jan, [facility] [address] [id number] [address] [place] [id number] Dec, Thoracic back pain, unspecif ied back pain laterality, unspecified chronicity M54.6 [facility] [address] [id number] [address] [place] [phone] Dec, Thoracic back pain, unspecif ied back pain laterality, unspecified chronicity M54.6 [facility] [address] [id number] [address] [place] [id number] Nov, Thoracic back pain, unspecif ied back pain laterality, unspecified chronicity M54.6 [facility] [address] [id number] [address] [place] [address] Nov, Anxiety F41.9 and Thoracic b ack pain, unspecified back pain laterality, unspecified chronicity M54.6 [facility] [address] [id number] [address] [place] [phone] Nov, [facility] [address] [id number] [address] [place] [phone] Nov, [facility] [address] [id number] [address] [place] [phone] Nov, [facility] [address] [id number] [address] [place] [address] Oct, Thoracic back pain, unspecif ied back pain laterality, unspecified chronicity M54.6 [facility] [address] [id number] [address] [place] [phone] Oct, Anxiety F41.9 and Thoracic b ack pain, unspecified back pain laterality, unspecified chronicity M54.6 [facility] [address] [id number] [address] [place] [id number] Oct, Schizophrenia, unspecified t ype F20.9 and Acute kidney injury N17.9 [facility] [address] [id number] [address] [place] [phone] Oct, [facility] [address] [id number] [address] [place] [phone] Oct, [facility] [address] [id number] [address] [place] [id number] Oct, Thoracic back pain, unspecif ied back pain laterality, unspecified chronicity M54.6 [facility] [address] [id number] [address] [place] [id number] Oct, [facility] [address] [id number] [address] [place] [phone] Oct, [facility] [address] [id number] [address] [place] [phone] Sep, Anxiety F41.9 [facility] [address] [id number] [address] [place] [id number] Sep, [facility] [address] [id number] [address] [place] [id number] Sep, Thoracic back pain, unspecif ied back pain laterality, unspecified chronicity M54.6 [facility] [address] [id number] [address] [place] [id number] Sep, [facility] [address] [id number] [address] [place] [id number] Sep, [facility] [address] [id number] [address] [place] [phone] Sep, [facility] [address] [id number] [address] [place] [phone] Sep, [facility] [address] [id number] [address] [place] [phone] Sep, [facility] [address] [facility] [id number] [address] [place] [id number] Sep, [facility] [address] [facility] [id number] [address] [place] [address] Sep, Chronic pain G89.29 ; Chroni c kidney disease, stage III (moderate) N18.3 ; Hyperlipidemia E78.5 and Insomnia G47.00 [facility] [address] [facility] [id number] [address] [place] [phone] Sep, Thoracic back pain, unspecif ied back pain laterality, unspecified chronicity M54.6 [facility] [address] [facility] [id number] [address] [place] [phone] August, Anxiety F41.9 [facility] [address] [place] [id number] [address] [place] [id number] August, Thoracic back pain, unspecif ied back pain laterality, unspecified chronicity M54.6 and Anxiety F41.9 [facility] [address] 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 [id number] [address] [place] [id number] August, [facility] [address] [facility] [id number] [address] [place] [phone] August, [facility] [address] [place] [id number] [address] [place] [phone] August, Thoracic back pain, unspecif ied back pain laterality, unspecified chronicity M54.6 [facility] [address] [facility] [id number] [address] [place] [phone] August, [facility] [address] [facility] [id number] [address] [place] [phone] August, Anxiety F41.9 and Thoracic b ack pain, unspecified back pain laterality, unspecified chronicity M54.6 [facility] [address] [id number] [address] [place] [phone] Jul, [facility] [address] [id number] [address] [place] [address] Jul, Thoracic back pain, unspecif ied back pain laterality, unspecified chronicity M54.6 [facility] [address] [id number] [address] [place] [phone] Jun, Anxiety F41.9 and Thoracic b ack pain, unspecified back pain laterality, unspecified chronicity M54.6 [facility] [address] [id number] [address] [place] [phone] Jun, Anxiety F41.9 and Thoracic b ack pain, unspecified back pain laterality, unspecified chronicity M54.6 [facility] [address] [id number] [address] [place] [phone] Jun, Thoracic back pain, unspecif ied back pain laterality, unspecified chronicity M54.6 [facility] [address] [id number] [address] [place] [id number] Jun, Anxiety F41.9 and Thoracic b ack pain, unspecified back pain laterality, unspecified chronicity M54.6 [facility] [address] [facility] [id number] [address] [place] [phone] May, [facility] [address] [id number] [address] [place] [address] May, [facility] [address] [facility] [id number] [address] [place] [id number] May, [facility] [address] [facility] [id number] [address] [place] [phone] May, Anxiety F41.9 and Encounter for medication monitoring Z51.81 [facility] [address] [id number] [address] [place] [phone] 05 May, 2018 Anxiety F41.9 and Thoracic b ack pain, unspecified back pain laterality, unspecified chronicity M54.6 [facility] [address] [id number] [address] [place] [address] Apr, Hyperlipidemia 272.4 [facility] [address] [id number] [address] [place] [address] Apr, Chronic pain G89.29 ; Anxiet y F41.9 ; Cervical radiculopathy M54.12 and Vision loss H54.7 [place] [address] [id number] [address] [place] [phone] Apr, [place] [address] [id number] [address] [place] [address] Apr, Anxiety F41.9 and Thoracic b ack pain, unspecified back pain laterality, unspecified chronicity M54.6 [place] [address] [id number] [address] [place] [id number] 17 Mar, 2018 [facility] [address] [id number] [address] [place] [id number] 10 Mar, 2018 Anxiety F41.9 and Thoracic b ack pain, unspecified back pain laterality, unspecified chronicity M54.6 [facility] [address] [id number] [address] [place] [id number] 14 Feb, 2018 Anxiety F41.9 and Thoracic b ack pain, unspecified back pain laterality, unspecified chronicity M54.6 [facility] [address] [id number] [address] [place] [id number] 07 Feb, 2018 Thoracic back pain, unspecif ied back pain laterality, unspecified chronicity M54.6 [facility] [address] [id number] [address] [place] [id number] Jan, [facility] [address] [id number] [address] [place] [phone] 16 Jan, 2018 Anxiety F41.9 and Thoracic b ack pain, unspecified back pain laterality, unspecified chronicity M54.6 [facility] [address] [id number] [address] [place] [phone] 19 Dec, 2017 Diarrhea of presumed infecti ous origin R19.7 [facility] [address] [id number] [address] [place] [id number] 19 Dec, 2017 Diarrhea of presumed infecti ous origin R19.7 [facility] [address] [id number] [address] [place] [id number] 18 Dec, 2017 Thoracic back pain, unspecif ied back pain laterality, unspecified chronicity M54.6 [facility] [address] [id number] [address] [place] [phone] 17 Dec, 2017 [facility] [address] [id number] [address] [place] [phone] 17 Dec, 2017 Anxiety F41.9 and Thoracic b ack pain, unspecified back pain laterality, unspecified chronicity M54.6 [facility] [address] [id number] [address] [place] [id number] Dec, Diarrhea of presumed infecti ous origin R19.7 [facility] [address] [id number] [address] [place] [phone] Dec, [facility] [address] [id number] [address] [place] [phone] Dec, Anxiety F41.9 and Thoracic b ack pain, unspecified back pain laterality, unspecified chronicity M54.6 [facility] [address] [id number] [address] [place] [phone] Dec, Anxiety F41.9 and Thoracic b ack pain, unspecified back pain laterality, unspecified chronicity M54.6 [facility] [place] [address] [place] [id number] Dec, Diarrhea of presumed infectious origin R 19.7 ; Anxiety F41.9 ; Thoracic back pain, unspecified back pain laterality, unspecified chronicity M54.6 and HTN (hypertension) I10 [place] [address] [facility] [id number] [address] [place] [phone] Dec, Anxiety F41.9 [facility] [employer] [address] [place] [id number] Dec, Anxiety F41.9 ; Diarrhea of presumed inf ectious origin R19.7 ; Generalized abdominal pain R10.84 and Localized edema R60.0 [place] [address] [facility] [id number] [address] [place] [address] Nov, [facility] [employer] [address] [place] [id number] Nov, Anxiety F41.9 ; Urinary retention R33.9 ; Diarrhea of presumed infectious origin R19.7 ; Weakness R53.1 ; Acute kidney failure, unspecified N17.9 ; Chronic kidney disease, stage III (moderate) N18.3 and Thoracic back pain, unspecified back pain laterality, unspecified chronicity M54.6 [place] [address] [facility] [id number] [address] [place] [phone] Oct, Thoracic back pain, unspecif ied back pain laterality, unspecified chronicity M54.6 and Anxiety F41.9 [place] [address] [facility] [id number] [address] [place] [phone] Sep, Thoracic back pain, unspecif ied back pain laterality, unspecified chronicity M54.6 and Anxiety F41.9 [place] [address] [address] [facility] [id number] [address] [place] [phone] Sep, Thoracic back pain, unspecif ied back pain laterality, unspecified chronicity M54.6 ; Anxiety F41.9 and Encounter for medication monitoring Z51.81 [place] [address] [address] [facility] [id number] [address] [place] [phone] August, [place] [address] [address] [facility] [id number] [address] [place] [id number] August, Thoracic back pain, unspecif ied back pain laterality, unspecified chronicity M54.6 and Anxiety F41.9 [facility] [address] [place] [id number] [address] [place] [id number] August, Hyperlipidemia E78.5 and HTN (hypertension) I10 [place] [facility] [address] [id number] [address] [place] [phone] August, [place] [address] [id number] [address] [place] [address] August, Medicare welcome exam Z00.00 ; Chronic kidney failure N18.9 ; Anxiety F41.9 ; Chronic pain G89.29 ; Insomnia G47.00 ; Hyperlipidemia E78.5 ; HTN (hypertension) I10 and Thoracic back pain, unspecified back pain laterality, unspecified chronicity M54.6 [place] [address] [id number] [address] [place] [phone] Jul, [place] [address] [id number] [address] [place] [phone] Jul, [place] [address] [id number] [address] [place] [phone] Jul, [place] [address] [id number] [address] [place] [address] Jul, Anxiety F41.9 [place] [address] [id number] [address] [place] [address] Jul, Thoracic back pain, unspecif ied back pain laterality, unspecified chronicity M54.6 and Anxiety F41.9 [place] [address] [facility] [id number] [address] [place] [phone] Jun, Thoracic back pain, unspecif ied back pain laterality, unspecified chronicity M54.6 and Anxiety F41.9 [place] [address] [id number] [address] [place] [address] May, Thoracic back pain, unspecif ied back pain laterality, unspecified chronicity M54.6 and Anxiety F41.9 [place] [address] [facility] [id number] [address] [place] [address] Apr, Thoracic back pain, unspecif ied back pain laterality, unspecified chronicity M54.6 and Anxiety F41.9 [place] [address] [facility] [id number] [address] [place] [phone] Mar, [place] [address] [facility] [id number] [address] [place] [phone] Mar, Thoracic back pain, unspecif ied back pain laterality, unspecified chronicity M54.6 and Anxiety F41.9 [place] [address] [facility] [id number] [address] [place] [phone] Mar, Thoracic back pain, unspecif ied back pain laterality, unspecified chronicity M54.6 ; HTN (hypertension) I10 ; Hyperlipidemia E78.5 and Anxiety F41.9 [place] [address] [id number] [address] [place] [address] Feb, Thoracic back pain, unspecif ied back pain laterality, unspecified chronicity M54.6 and Anxiety F41.9 [place] [address] [id number] [address] [place] [phone] Nov, [place] [address] [id number] [address] [place] [address] Oct, [place] [address] [id number] [address] [place] [address] Oct, Thoracic back pain, unspecif ied back pain laterality, unspecified chronicity M54.6 [place] [address] [facility] [id number] [address] [place] [address] Oct, HTN (hypertension) I10 ; Con stipation K59.00 ; Hyperlipidemia E78.5 ; Thoracic back pain, unspecified back pain laterality, unspecified chronicity M54.6 ; Chronic pain G89.29 ; Anxiety F41.9 ; Chronic kidney failure N18.9 ; Environmental allergies Z91.09 ; Vitamin D deficiency E55.9 and Primary insomnia F51.01 [facility] [address] [id number] [address] [place] [phone] Sep, Anxiety F41.9 [facility] [address] [id number] [address] [place] [phone] Sep, [facility] [address] [id number] [address] [place] [address] August, Anxiety F41.9 [facility] [address] [id number] [address] [place] [phone] August, [facility] [address] [id number] [address] [place] [address] Jul, Anxiety F41.9 [facility] [address] [id number] [address] [place] [address] Jul, [facility] [address] [id number] [address] [place] [address] Jun, Anxiety F41.9 [facility] [address] [id number] [address] [place] [phone] Jun, [facility] [address] [id number] [address] [place] [phone] May, [facility] [address] [id number] [address] [place] [address] May, [facility] [address] [id number] [address] [place] [phone] May, [facility] [address] [id number] [address] [place] [address] Apr, [facility] [address] [id number] [address] [place] [id number] Apr, [facility] [address] [facility] [id number] [address] [place] [address] Apr, Anxiety F41.9 [facility] [address] [facility] [id number] [address] [place] [address] Apr, Anxiety F41.9 [facility] [address] [id number] [address] [place] [address] Apr, [facility] [address] [id number] [address] [place] [phone] Mar, HTN (hypertension) I10 ; Phillip mor R25.1 ; Hypercholesterolemia E78.0 ; Constipation K59.00 ; Chronic pain G89.29 ; Hyperlipidemia E78.5 ; Insomnia G47.00 ; Anxiety F41.9 and Thoracic back pain, unspecified back pain laterality, unspecified chronicity M54.6 [facility] [address] [id number] [address] [place] [address] Mar, Tremor R25.1 ; HTN (hyperten stas) I10 ; Hypercholesterolemia E78.0 ; Constipation K59.00 ; Chronic pain G89.29 ; Hyperlipidemia E78.5 ; Insomnia G47.00 ; Anxiety F41.9 and Thoracic back pain, unspecified back pain laterality, unspecified chronicity M54.6 [facility] [address] [id number] [address] [place] [address] Mar, [facility] [address] [id number] [address] [place] [address] Mar, [facility] [address] [id number] [address] [place] [phone] Feb, [facility] [address] [id number] [address] [place] [phone] Jan, [facility] [address] [id number] [address] [place] [id number] Jan, [facility] [address] [id number] [address] [place] [phone] Dec, [facility] [address] [id number] [address] [place] [address] Nov, [facility] [address] [id number] [address] [place] [id number] Nov, [facility] [address] [facility] [id number] [address] [place] [phone] Oct, Anxiety F41.9 [facility] [address] [facility] [id number] [address] [place] [address] Oct, Chronic pain G89.29 [facility] [address] [facility] [id number] [address] [place] [address] Sep, [facility] [address] [facility] [id number] [address] [place] [phone] Sep, [facility] [address] [facility] [id number] [address] [place] [phone] Sep, [facility] [address] [facility] [id number] [address] [place] [phone] Sep, [facility] [address] [facility] [id number] [address] [place] [id number] Sep, Chronic pain syndrome G89.4 [facility] [address] [facility] [id number] [address] [place] [phone] Sep, HTN (hypertension) I10 ; Chr onic pain G89.29 ; Hypercholesterolemia E78.0 ; Chronic kidney failure N18.9 ; Constipation, unspecified constipation type K59.00 ; Anxiety F41.9 and Thoracic back pain, unspecified back pain laterality, unspecified chronicity M54.6 [facility] [address] [facility] [id number] [address] [place] [phone] August, Chronic pain syndrome G89.4 [facility] [address] [facility] [id number] [address] [place] [address] August, Chronic pain syndrome G89.4 [facility] [address] [facility] [id number] [address] [place] [phone] Jul, Anxiety disorder, unspecifie d F41.9 and Chronic pain syndrome G89.4 [facility] [address] [facility] [id number] [address] [place] [phone] Jul, Insomnia, unspecified G47.00 and Chronic pain syndrome G89.4 [facility] [address] [facility] [id number] [address] [place] [address] Jul, Allergic rhinitis J30.9 [facility] [address] [facility] [id number] [address] [place] [address] Jul, Constipation, unspecified K5 9.00 [facility] [address] [facility] [id number] [address] [place] [address] Jul, [facility] [address] [facility] [id number] [address] [place] [phone] Jun, [facility] [address] [facility] [id number] [address] [place] [phone] Jun, [facility] [address] [facility] [id number] [address] [place] [phone] Jun, [facility] [address] [facility] [id number] [address] [place] [id number] Jun, [facility] [address] [facility] [id number] [address] [place] [address] Jun, [facility] [address] [id number] [address] [place] [phone] Jun, [facility] [address] [facility] [id number] [address] [place] [phone] May, [facility] [address] [facility] [id number] [address] [place] [phone] May, [facility] [address] [id number] [address] [place] [address] May, Anxiety F41.9 ; Insomnia G47 .00 ; Hyperlipidemia E78.5 ; Chronic pain G89.29 ; HTN (hypertension) I10 ; Environmental allergies V15.09 and Constipation 564.00 [facility] [address] [facility] [id number] [address] [place] [phone] Apr, [facility] [address] [facility] [id number] [address] [place] [phone] Apr, [facility] [address] [facility] [id number] [address] [place] [phone] Apr, [facility] [address] [facility] [id number] [address] [place] [phone] Mar, [facility] [address] [facility] [id number] [address] [place] [phone] Mar, [facility] [id number] [place] [phone] Mar, [facility] [address] [id number] [address] [place] [phone] Feb, [facility] [address] [id number] [place] [phone] Feb, [facility] [address] [id number] [address] [place] [id number] Feb, [facility] [address] [address] Jan, HTN (hypertension) I10 ; Con stipation K59.00 ; Chronic pain G89.29 ; Hyperlipidemia E78.5 ; Hypercholesterolemia E78.0 ; Insomnia G47.00 and Anxiety F41.9 [facility] [address] [id number] [address] [place] [phone] Jan, [facility] [address] [facility] [id number] [address] [place] [phone] Dec, [facility] [address] [id number] [place] [phone] Nov, [facility] [address] [id number] [address] [place] [address] Oct, Chronic kidney disease, unsp ecified 585.9 ; Chronic pain syndrome 338.4 ; Hyperlipidemia 272.4 and Essential hypertension 401.9 [facility] [address] [facility] [id number] [address] [place] [id number] Oct, Chronic kidney disease 585.9 [facility] [address] [facility] [id number] [address] [place] [phone] 15 Oct, 2014 [facility] [address] [facility] [id number] [address] [place] [address] Oct, Chronic kidney disease, unsp ecified 585.9 ; Hypercalcemia 275.42 ; Hyperlipidemia 272.4 ; Essential hypertension 401.9 ; Chronic pain syndrome 338.4 ; Insomnia 780.52 ; Constipation 564.00 ; Environmental allergies V15.09 and Anxiety 300.00 [facility] [address] [facility] [id number] [address] [place] [id number] 15 Oct, 2014 Chronic kidney disease 585.9 [facility] [address] [facility] [id number] [address] [place] [phone] Oct, [facility] [address] [facility] [id number] [address] [place] [phone] 14 Oct, 2014 Chronic kidney disease 585.9 and Hyperlipidemia 272.4 [facility] [address] [facility] [id number] [address] [place] [phone] Oct, [facility] [address] [facility] [id number] [address] [place] [phone] Oct, [facility] [address] [facility] [id number] [address] [place] [id number] 18 Sep, 2014 [facility] [address] [facility] [id number] [address] [place] [phone] Sep, [facility] [address] [facility] [id number] [address] [place] [phone] Sep, Chronic kidney disease 585.9 and Hyperlipidemia 272.4 [facility] [address] [facility] [id number] [address] [place] [phone] Sep, [facility] [address] [id number] [address] [place] [address], [place] [address] August, [facility] [address] [id number] [address] [place] [address], [place] [address] August, [facility] [address] [id number] [address] [place] [address], [place] [address] Jul, [facility] [address] [id number] [address] [place] [address], [place] [address] Jul, [facility] [address] [id number] [address] [place] [address], [place] [address] Jun, [facility] [address] [id number] [address] [place] [address], [place] [address] Jun, [facility] [address] [id number] [address] [place] [address], [place] [address] Jun, [facility] [address] [id number] [address] [place] [address], [place] [address] Jun, [facility] [address] [id number] [address] [place] [address], [place] [address] Jun, [facility] [address] [id number] [address] [place] [address], [place] [address] Jun, [facility] [address] [id number] [address] [place] [address], [place] [address] Jun, [facility] [address] [id number] [address] [place] [address], [place] [address] Jun, [facility] [address] [id number] [address] [place] [address], [place] [address] May, [facility] [address] [id number] [address] [place] [address], [place] [address] May, [facility] [address] [id number] [address] [place] [address], [place] [address] May, [facility] [address] [id number] [address] [place] [address], [place] [address] May, [facility] [address] [id number] [address] [place] [address], [place] [address] Apr, [facility] [address] [id number] [address] [place] [address], [place] [address] Apr, [facility] [address] [id number] [address] [place] [address], [place] [address] Apr, [facility] [address] [id number] [address] [place] [address], [place] [address] Apr, [facility] [address] [id number] [address] [place] [address], [place] [address] Apr, [facility] [address] [id number] [address] [place] [address], [place] [address] Apr, [facility] [address] [id number] [address] [place] [address], [place] [address] Apr, [facility] [address] [id number] [address] [place] [address], [place] [address] Apr, [facility] [address] [id number] [address] [place] [address], [place] [address] Apr, [facility] [address] [id number] [address] [place] [address], [place] [address] Apr, [facility] [address] [id number] [address] [place] [address], [place] [address] Apr, [facility] [address] [id number] [address] [place] [address], [place] [address] Mar, [facility] [address] [id number] [address] [place] [address], [place] [address] Mar, [facility] [address] [id number] [address] [place] [address], [place] [address] Feb, [facility] [address] [id number] [address] [place] [address], [place] [address] Feb, [facility] [address] [id number] [address] [place] [address], [place] [address] Feb, [facility] [address] [id number] [address] [place] [address], [place] [address] Feb, [facility] [address] [id number] [address] [place] [address], [place] [address] Feb, [facility] [address] [id number] [address] [place] [address], [place] [address] Feb, [facility] [address] [id number] [address] [place] [address], [place] [address] Feb, [facility] [address] [id number] [address] [place] [address], [place] [address] Feb, [facility] [address] [id number] [address] [place] [address], [place] [address] Feb, [facility] [address] [id number] [address] [place] [address], [place] [address] Feb, [facility] [address] [id number] [address] [place] [address], [place] [address] Jan, [facility] [address] [id number] [address] [place] [address], [place] [address] Jan, [facility] [address] [id number] [address] [place] [address], [place] [address] Jan, [facility] [address] [id number] [address] [place] [address], [place] [address] Jan, [facility] [address] [id number] [address] [place] [address], [place] [address] Jan, [facility] [address] [id number] [address] [place] [address], [place] [address] Jan, [facility] [address] [id number] [address] [place] [address], [place] [address] Jan, [facility] [address] [id number] [address] [place] [address], [place] [address] Jan, [facility] [address] [id number] [address] [place] [address], [place] [address] 16 Jan, 2014 [facility] [address] [id number] [address] [place] [address], [place] [address] Jan, [facility] [address] [id number] [address] [place] [address], [place] [address] Jan, [facility] [address] [id number] [address] [place] [address], [place] [address] Dec, 2013 [facility] [address] [id number] [address] [place] [address], [place] [address] 26 Dec, 2013 [facility] [address] [id number] [address] [place] [address], [place] [address] 19 Dec, 2013 [facility] [address] [id number] [address] [place] [address], [place] [address] Dec, 2013 [facility] [address] [id number] [address] [place] [address], [place] [address] 18 Dec, 2013 [facility] [address] [id number] [address] [place] [address], [place] [address] 18 Dec, 2013 [facility] [address] [id number] [address] [place] [address], [place] [address] Dec, [facility] [address] [id number] [address] [place] [address], [place] [address] Dec, [facility] [address] [id number] [address] [place] [address], [place] [address] Nov, [facility] [address] [id number] [address] [place] [address], [place] [address] Nov, [facility] [address] [id number] [address] [place] [address], [place] [address] Nov, [facility] [address] [id number] [address] [place] [address], [place] [address] Nov, [facility] [address] [id number] [address] [place] [address], [place] [address] Nov, [facility] [address] [id number] [address] [place] [address], [place] [address] Nov, [facility] [address] [id number] [address] [place] [address], [place] [address] Nov, [facility] [address] [id number] [address] [place] [address], [place] [address] Nov, [facility] [address] [id number] [address] [place] [address], [place] [address] Oct, [facility] [address] [id number] [address] [place] [address], [place] [address] Oct, [facility] [address] [id number] [address] [place] [address], [place] [address] Oct, [facility] [address] [id number] [address] [place] [address], [place] [address] Oct, [facility] [address] [id number] [address] [place] [address], [place] [address] Sep, [facility] [address] [id number] [address] [place] [address], [place] [address] Sep, [facility] [address] [id number] [address] [place] [address], [place] [address] Sep, [facility] [address] [id number] [address] [place] [address], [place] [address] Sep, [facility] [address] [id number] [address] [place] [address] Sep, [facility] [address] [id number] [address] [place] [address], [place] [address] Sep, [facility] [address] [id number] [address] [place] [address], [place] [address] Sep, [facility] [address] [id number] [address] [place] [address], [place] [address] Sep, [facility] [address] [id number] [address] [place] [address], [place] [address] August, [facility] [address] [id number] [address] [place] [address], [place] [address] August, [facility] [address] [id number] [address] [place] [address], [place] [address] August, [facility] [address] [id number] [address] [place] [address], [place] [address] August, [facility] [address] [id number] [address] [place] [address], [place] [address] August, [facility] [address] [id number] [address] [place] [address], [place] [address] August, [facility] [address] [id number] [address] [place] [address], [place] [address] August, [facility] [address] [id number] [address] [place] [address], [place] [address] August, [facility] [address] [id number] [address] [place] [address], [place] [address] August, [facility] [address] [id number] [address] [place] [address], [place] [address] August, [facility] [address] [id number] [address] [place] [address], [place] [address] Jul, [facility] [address] [id number] [address] [place] [address], [place] [address] Jul, [facility] [address] [id number] [address] [place] [address], [place] [address] Jul, [facility] [address] [id number] [address] [place] [address], [place] [address] Jul, [facility] [address] [id number] [address] [place] [address], [place] [address] Jul, [facility] [address] [id number] [address] [place] [address], [place] [address] Jul, [facility] [address] [id number] [facility] [place] [address] Jul, [facility] [address] [id number] [address] [place] [address], [place] [address] Jul, [facility] [address] [id number] [address] [place] [address], [place] [address] Jun, [facility] [address] [id number] [address] [place] [address], [place] [address] Jun, [facility] [address] [id number] [address] [place] [address], [place] [address] Jun, [facility] [address] [id number] [address] [place] [address], [place] [address] Jun, [facility] [address] [id number] [address] [place] [address], [place] [address] Jun, [facility] [address] [id number] [address] [place] [address], [place] [address] Jun, [facility] [address] [id number] [address] [place] [address], [place] [address] May, [facility] [address] [id number] [address] [place] [address], [place] [address] May, [facility] [address] [id number] [address] [place] [address], [place] [address] May, [facility] [address] [id number] [address] [place] [address], [place] [address] May, [facility] [address] [id number] [address] [place] [address], [place] [address] May, [facility] [address] [id number] [address] [place] [address], [place] [address] May, [facility] [address] [id number] [address] [place] [address], [place] [address] May, [facility] [address] [id number] [address] [place] [address], [place] [address] Apr, [facility] [address] [id number] [address] [place] [address], [place] [address] Apr, [facility] [address] [id number] [address] [place] [address], [place] [address] Apr, [facility] [address] [id number] [address] [place] [address], [place] [address] Apr, [facility] [address] [id number] [address] [place] [address], [place] [address] Apr, [facility] [address] [id number] [address] [place] [address], [place] [address] Apr, [facility] [address] [id number] [address] [place] [address], [place] [address] Mar, [facility] [address] [id number] [address] [place] [address], [place] [address] Mar, [facility] [address] [id number] [address] [place] [address], [place] [address] Mar, [facility] [address] [id number] [address] [place] [address], [place] [address] Mar, [facility] [address] [id number] [address] [place] [address], [place] [address] Mar, [facility] [address] [id number] [address] [place] [address], [place] [address] 19 Mar, 2013 [facility] [address] [id number] [address] [place] [address], [place] [address] 16 Mar, 2013 [facility] [address] [id number] [address] [place] [address], [place] [address] 16 Mar, 2013 [facility] [address] [id number] [address] [place] [address], [place] [address] 12 Mar, 2013 [facility] [address] [id number] [address] [place] [address], [place] [address] Mar, [facility] [address] [id number] [address] [place] [address], [place] [address] Feb, [facility] [address] [id number] [address] [place] [address], [place] [address] Feb, [facility] [address] [id number] [address] [place] [address], [place] [address] Feb, [facility] [address] [id number] [address] [place] [address], [place] [address] Feb, [facility] [address] [id number] [address] [place] [address], [place] [address] Feb, [facility] [address] [id number] [address] [place] [address], [place] [address] Feb, [facility] [address] [id number] [address] [place] [address], [place] [address] Feb, [facility] [address] [id number] [address] [place] [address], [place] [address] Feb, [facility] [address] [id number] [address] [place] [address], [place] [address] Feb, [facility] [address] [id number] [address] [place] [address], [place] [address] Feb, [facility] [address] [id number] [address] [place] [address], [place] [address] Jan, [facility] [address] [id number] [address] [place] [address], [place] [address] Jan, [facility] [address] [id number] [address] [place] [address], [place] [address] Jan, [facility] [address] [id number] [address] [place] [address], [place] [address] Jan, [facility] [address] [id number] [address] [place] [address], [place] [address] Jan, [facility] [address] [id number] [address] [place] [address] [place] [address] Jan, [facility] [address] [id number] [address] [place] [address], [place] [address] 17 Jan, 2013 [facility] [address] [id number] [address] [place] [address], [place] [address] Jan, [facility] [address] [id number] [address] [place] [address], [place] [address] Jan, [facility] [address] [id number] [address] [place] [address], [place] [address] Dec, [facility] [address] [id number] [address] [place] [address], [place] [address] Dec, [facility] [address] [id number] [address] [place] [address], [place] [address] Dec, [facility] [address] [id number] [address] [place] [address], [place] [address] Dec, [facility] [address] [id number] [address] [place] [address], [place] [address] Nov, [facility] [address] [id number] [address] [place] [address], [place] [address] Nov, [facility] [address] [id number] [address] [place] [address], [place] [address] Nov, [facility] [address] [id number] [address] [place] [address], [place] [address] Nov, [facility] [address] [id number] [address] [place] [address], [place] [address] Nov, [facility] [address] [id number] [address] [place] [address], [place] [address] Nov, [facility] [address] [id number] [address] [place] [address], [place] [address] Oct, [facility] [address] [id number] [address] [place] [address], [place] [address] Oct, [facility] [address] [id number] [address] [place] [address], [place] [address] 12 Oct, 2012 [facility] [address] [id number] [address] [place] [address], [place] [address] 08 Oct, 2012 [facility] [address] [id number] [address] [place] [address], [place] [address] 27 Sep, 2012 [facility] [address] [id number] [address] [place] [address], [place] [address] Sep, [facility] [address] [id number] [address] [place] [address], [place] [address] 17 Sep, 2012 [facility] [address] [id number] [address] [place] [address], [place] [address] 14 Sep, 2012 [facility] [address] [id number] [address] [place] [address], [place] [address] Sep, [facility] [address] [id number] [address] [place] [address], [place] [address] August, [facility] [address] [id number] [address] [place] [address], [place] [address] 2012 [facility] [address] [id number] [address] [place] [address], [place] [address] Jul, [facility] [address] [id number] [address] [place] [address], [place] [address] Jul, [facility] [address] [id number] [address] [place] [address], [place] [address] 15 Jul, 2012 [facility] [address] [id number] [address] [place] [address], [place] [address] 09 Jul, 2012 [facility] [address] [id number] [address] [place] [address], [place] [address] 08 Jul, 2012 [facility] [address] [id number] [address] [place] [address], [place] [address] 26 Jun, 2012 [facility] [address] [id number] [address] [place] [address], [place] [address] Jun, [facility] [address] [id number] [address] [place] [address], [place] [address] Jun, [facility] [address] [id number] [address] [place] [address], [place] [address] Jun, [facility] [address] [id number] [address] [place] [address], [place] [address] Jun, [facility] [address] [id number] [address] [place] [address], [place] [address] May, [facility] [address] [id number] [address] [place] [address], [place] [address] May, [facility] [address] [id number] [address] [place] [address], [place] [address] May, [facility] [address] [id number] [address] [place] [address], [place] [address] May, [facility] [address] [id number] [address] [place] [address], [place] [address] May, [facility] [address] [id number] [address] [place] [address], [place] [address] 14 May, 2012 [facility] [address] [id number] [address] [place] [address], [place] [address] May, [facility] [address] [id number] [address] [place] [address], [place] [address] 08 May, 2012 [facility] [address] [id number] [address] [place] [address], [place] [address] May, [facility] [address] [id number] [address] [place] [address], [place] [address] Apr, [facility] [address] [id number] [address] [place] [address], [place] [address] Apr, [facility] [address] [id number] [address] [place] [address], [place] [address] Apr, [facility] [address] [id number] [address] [place] [address], [place] [address] 14 Apr, 2012 [facility] [address] [id number] [address] [place] [address], [place] [address] Apr, [facility] [address] [id number] [address] [place] [address], [place] [address] Mar, [facility] [address] [id number] [address] [place] [address], [place] [address] Mar, [facility] [address] [id number] [address] [place] [address], [place] [address] Mar, [facility] [address] [id number] [address] [place] [address], [place] [address] Mar, [facility] [address] [id number] [address] [place] [address], [place] [address] Mar, [facility] [address] [id number] [address] [place] [address], [place] [address] Mar, [facility] [address] [id number] [address] [place] [address], [place] [address] Mar, [facility] [address] [id number] [address] [place] [address], [place] [address] Mar, [facility] [address] [id number] [address] [place] [address], [place] [address] Mar, [facility] [address] [id number] [address] [place] [address], [place] [address] Mar, [facility] [address] [id number] [address] [place] [address], [place] [address] Feb, [facility] [address] [id number] [address] [place] [address], [place] [address] Feb, [facility] [address] [id number] [address] [place] [address], [place] [address] 29 Feb, 2012 [facility] [address] [id number] [address] [place] [address], [place] [address] Feb, [facility] [address] [id number] [address] [place] [address], [place] [address] Feb, [facility] [address] [id number] [address] [place] [address], [place] [address] Feb, [facility] [address] [id number] [address] [place] [address], [place] [address] Feb, [facility] [address] [id number] [address] [place] [address], [place] [address] Feb, [facility] [address] [id number] [address] [place] [address], [place] [address] 16 Feb, 2012 [facility] [address] [id number] [address] [place] [address], [place] [address] 16 Feb, 2012 [facility] [address] [id number] [address] [place] [address], [place] [address] Feb, [facility] [address] [id number] [address] [place] [address], [place] [address] Feb, [facility] [address] [id number] [address] [place] [address], [place] [address] Feb, [facility] [address] [id number] [address] [place] [address], [place] [address] Feb, [facility] [address] [id number] [address] [place] [address] Feb, [facility] [address] [id number] [address] [place] [address] 08 Feb, 2012 [facility] [address] [id number] [address] [place] [address], [place] [address] Feb, [facility] [address] [id number] [address] [place] [address] Feb, [facility] [address] [id number] [address] [place] [address], [place] [address] 31 Jan, 2012 [facility] [address] [id number] [address] [place] [address], [place] [address] Jan, [facility] [address] [id number] [address] [place] [address], [place] [address] Jan, [facility] [address] [id number] [address] [place] [address], [place] [address] Jan, [facility] [address] [id number] [address] [place] [address], [place] [address] Jan, [facility] [address] [id number] [address] [place] [address], [place] [address] Jan, [facility] [address] [id number] [address] [place] [address], [place] [address] Jan, [facility] [address] [id number] [address] [place] [address], [place] [address] Jan, [facility] [address] [id number] [address] [place] [address], [place] [address] Jan, [facility] [address] [id number] [address] [place] [address], [place] [address] Jan, [facility] [address] [id number] [address] [place] [address], [place] [address] 24 Dec, 2011 [facility] [address] [id number] [address] [place] [address], [place] [address] 18 Dec, 2011 [facility] [address] [id number] [address] [place] [address], [place] [address] Dec, [facility] [address] [id number] [address] [place] [address], [place] [address] Dec, [facility] [address] [id number] [address] [place] [address], [place] [address] Nov, [facility] [address] [id number] [address] [place] [address], [place] [address] Nov, [facility] [address] [id number] [address] [place] [address], [place] [address] Nov, [facility] [address] [id number] [address] [place] [address], [place] [address] Nov, [facility] [address] [id number] [address] [place] [address], [place] [address] Nov, [facility] [address] [id number] [address] [place] [address], [place] [address] Nov, [facility] [address] [id number] [address] [place] [address], [place] [address] Oct, [facility] [address] [id number] [address] [place] [address], [place] [address] Oct, [facility] [address] [id number] [address] [place] [address], [place] [address] Oct, [facility] [address] [id number] [address] [place] [address], [place] [address] Oct, [facility] [address] [id number] [address] [place] [address], [place] [address] Oct, [facility] [address] [id number] [address] [place] [address], [place] [address] Sep, [facility] [address] [id number] [address] [place] [address], [place] [address] Sep, [facility] [address] [id number] [address] [place] [address], [place] [address] Sep, [facility] [address] [id number] [address] [place] [address], [place] [address] Sep, [facility] [address] [id number] [address] [place] [address], [place] [address] Sep, [facility] [address] [id number] [address] [place] [address], [place] [address] August, [facility] [address] [id number] [address] [place] [address], [place] [address] August, [facility] [address] [id number] [address] [place] [address], [place] [address] August, [facility] [address] [id number] [address] [place] [address], [place] [address] August, [facility] [address] [id number] [address] [place] [address], [place] [address] 27 Jul, 2011 [facility] [address] [id number] [address] [place] [address], [place] [address] 24 Jul, 2011 [facility] [address] [id number] [address] [place] [address], [place] [address] Jul, [facility] [address] [id number] [address] [place] [address], [place] [address] Jul, [facility] [address] [id number] [address] [place] [address], [place] [address] Jul, [facility] [address] [id number] [address] [place] [address], [place] [address] Jul, [facility] [address] [id number] [address] [place] [address], [place] [address] Jul, [facility] [address] [id number] [address] [place] [address], [place] [address] 10 Jul, 2011 [facility] [address] [id number] [address] [place] [address], [place] [address] 09 Jul, 2011 [facility] [address] [id number] [address] [place] [address], [place] [address] 07 Jul, 2011 [facility] [address] [id number] [address] [place] [address], [place] [address] 05 Jul, 2011 [facility] [address] [id number] [address] [place] [address], [place] [address] 03 Jul, 2011 [facility] [address] [address] [id number] [address] [place] [address], [place] [address] 02 Jul, 2011 [facility] [address] [id number] [address] [place] [address], [place] [address] Jul, [facility] [address] [id number] [address] [place] [address], [place] [address] 28 Jun, 2011 [facility] [address] [id number] [address] [place] [address], [place] [address] 27 Jun, 2011 [facility] [address] [id number] [address] [place] [address], [place] [address] 20 Jun, 2011 [facility] [address] [id number] [address] [place] [address], [place] [address] 16 Jun, 2011 [facility] [address] [id number] [address] [place] [address], [place] [address] 27 May, 2011 [facility] [address] [id number] [address] [place] [address], [place] [address] 16 May, 2011 [facility] [address] [id number] [address] [place] [address], [place] [address] 09 May, 2011 [facility] [address] [id number] [address] [place] [address], [place] [address] Apr, [facility] [address] [id number] [address] [place] [address], [place] [address] 18 Apr, 2011 [facility] [address] [id number] [address] [place] [address], [place] [address] Apr, [facility] [address] [id number] [address] [place] [address], [place] [address] Apr, [facility] [address] [id number] [address] [place] [address], [place] [address] 09 Apr, 2011 [facility] [address] [id number] [address] [place] [address], [place] [address] Mar, [facility] [address] [id number] [address] [place] [address], [place] [address] Mar, [facility] [address] [id number] [address] [place] [address], [place] [address] Mar, [facility] [address] [id number] [address] [place] [address], [place] [address] 20 Mar, 2011 [facility] [address] [id number] [address] [place] [address], [place] [address] 16 Mar, 2011 [facility] [address] [id number] [address] [place] [address], [place] [address] Mar, [facility] [address] [id number] [address] [place] [address], [place] [address] 05 Mar, 2011 [facility] [address] [id number] [address] [place] [address], [place] [address] 29 Feb, 2011 [facility] [address] [id number] [address] [place] [address], [place] [address] Feb, [facility] [address] [id number] [address] [place] [address], [place] [address] Feb, [facility] [address] [id number] [address] [place] [address], [place] [address] Feb, [facility] [address] [id number] [address] [place] [address] 16 Feb, 2011 [facility] [address] [id number] [address] [place] [address], [place] [address] 14 Feb, 2011 [facility] [address] [id number] [address] [place] [address] Feb, [facility] [address] [id number] [address] [place] [id number] 31 Jan, 2011 [facility] [address] [id number] [address] [place] [address] 31 Jan, 2011 [facility] [address] [id number] [address] [place] [address], [place] [address] 31 Jan, 2011 [facility] [address] [id number] [address] [place] [address] 18 Jan, 2011 [facility] [address] [id number] [address] [place] [address] 17 Jan, 2011 [facility] [address] [id number] [address] [place] [address], [place] [address] 17 Jan, 2011 [facility] [address] [id number] [address] [place] [address], [place] [address] 17 Jun, 2010 [facility] [address] [id number] [address] [place] [address], [place] [address] 30 Mar, 2010 [facility] [address] [id number] [address] [place] [address], [place] [address] 20 Mar, 2010 [facility] [address] [id number] [address] [place] [address], [place] [address] 14 Mar, 2010 [facility] [address] [id number] [address] [place] [address], [place] [address] 14 Mar, 2010 [facility] [address] [id number] [address] [place] [address], [place] [address] 13 Mar, 2010 [facility] [address] [id number] [address] [place] [address], [place] [address] 07 Mar, 2010 [facility] [address] [id number] [address] [place] [address], [place] [address] 02 Mar, 2010 [facility] [address] [id number] [address] [place] [address], [place] [address] 01 Mar, 2010 [facility] [address] [id number] [address] [place] [address], [place] [address] 30 Feb, 2010 [facility] [address] [id number] [address] [place] [address], [place] [address] 29 Feb, 2010 [facility] [address] [id number] [address] [place] [address], [place] [address] 17 Feb, 2010 [facility] [address] [id number] [address] [place] [address], [place] [address] 17 Feb, 2010 [facility] [address] [id number] [address] [place] [address], [place] [address] 16 Feb, 2010 [facility] [address] [id number] [address] [place] [address], [place] [address] Feb, [facility] [address] [id number] [address] [place] [address], [place] [address] Feb, [facility] [address] [id number] [address] [place] [address], [place] [address] Feb, [facility] [address] [id number] [address] [place] [address], [place] [address] Jan, [facility] [address] [id number] [address] [place] [address], [place] [address] Jan, [facility] [address] [id number] [address] [place] [address], [place] [address] Jan, [facility] [address] [id number] [address] [place] [address], [place] [address] Jan, [facility] [address] [id number] [address] [place] [address], [place] [address] 29 Mar, 2009 [facility] [address] [id number] [address] [place] [address], [place] [address] 22 Mar, 2009 [facility] [address] [id number] [address] [place] [address], [place] [address] Mar, [facility] [address] [id number] [address] [place] [address] 19 Mar, 2009 [facility] [address] [id number] [address] [place] [address], [place] [address] 14 Mar, 2009 [facility] [address] [id number] [address] [place] [id number] 10 Mar, 2009 [facility] [address] [id number] [address] [place] [address], [place] [address] 18 Feb, 2009 [facility] [address] [id number] [address] [place] [address], [place] [address] 18 Feb, 2009 [facility] [address] [id number] [address] [place] [address] 13 Jan, 2009 [facility] [address] [id number] [address] [place] [address] Sep, [facility] [address] [facility] [id number] [address] [place] [address] May, IMMUNIZATIONS No Known Immunizations SOCIAL HISTORY Never Assessed REASON FOR VISIT PLAN OF CARE VITAL SIGNS MEDICATIONS Unknown [...] Surgical History Left ear surgery Hospitalization History [facility] in [place]- Spontane ous Pneumothorax Hospitalization History [facility]- Colon resection Hospital[facility] History [facility] - diarrhea/ couldnt urin ate nov 2017 Hospitalization History pain /hip to foot right side 10/16/19 19
--- OUTSIDE RECORDS SUMMARY | 2019-08-28 08:46 | XMS REPORT ---
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 Softener Service Supervisor Name Role Phone STEPHAN DE LEON Unavailable PROBLEMS Type Condition ICD9-CM Code WFH46-AU Code Onset Dates Condition S tatus SNOMED Code Problem HTN (hypertension) I10 Active 3 8710873 Problem Anxiety F41.9 Active 22093027 Problem Schizophrenia, unspecified type F20.9 Active 17318085 Problem Age-related cataract of both eyes, unspecified age-related cataract type H25.9 Active 08304294 Problem Hyperlipidemia E78.5 Active 93855 004 Problem Constipation K59.00 Active 8281479 8 Problem Thoracic back pain, unspecif ied back pain laterality, unspecified chronicity M54.6 Active 826236115 Problem Environmental allergies Z91.09 Active [id number] ALLERGIES No Information ENCOUNTERS Encounter Location Date Diagnosis [place] [address] [address] [facility] [id number] [address] [place] [id number] August, [facility] [address] [id number] [address] [place] [phone] August, [facility] [address] [facility] [id number] [address] [place] [id number] August, [facility] [address] [id number] [address] [place] [phone] August, Thoracic back pain, unspecif ied back pain laterality, unspecified chronicity M54.6 [facility] [address] [facility] [id number] [address] [place] [id number] August, [facility] [address] [facility] [id number] [address] [place] [id number] Jul, Anxiety F41.9 and Thoracic b ack pain, unspecified back pain laterality, unspecified chronicity M54.6 [facility] [address] [id number] [address] [place] [id number] 30 Jul, 2019 [facility] [address] [id number] [address] [place] [id number] Jul, [facility] [address] [id number] [address] [place] [id number] Jul, Thoracic back pain, unspecif ied back pain laterality, unspecified chronicity M54.6 ; Anxiety F41.9 and Constipation K59.00 [facility] [address] [id number] [address] [place] [id number] Jul, Psychophysiological insomnia F51.04 [facility] [address] [id number] [address] [place] [id number] Jul, [facility] [address] [id number] [address] [place] [id number] Jul, [facility] [address] [id number] [address] [place] [id number] Jul, [facility] [address] [id number] [address] [place] [phone] Jul, [facility] [address] [id number] [address] [place] [id number] Jul, Thoracic back pain, unspecif ied back pain laterality, unspecified chronicity M54.6 [facility] [address] [id number] [address] [place] [address] Jul, Anxiety F41.9 and Thoracic b ack pain, unspecified back pain laterality, unspecified chronicity M54.6 [facility] [address] [id number] [address] [place] [id number] Jun, [facility] [address] [id number] [address] [place] [id number] Jun, Thoracic back pain, unspecif ied back pain laterality, unspecified chronicity M54.6 [facility] [address] [id number] [address] [place] [id number] 09 Jun, 2019 [facility] [address] [id number] [address] [place] [id number] 04 Jun, 2019 Anxiety F41.9 and Thoracic b ack pain, unspecified back pain laterality, unspecified chronicity M54.6 [facility] [address] [id number] [address] [place] [id number] 04 Jun, 2019 [facility] [address] [id number] [address] [place] [phone] May, [facility] [address] [id number] [address] [place] [address] May, Psychophysiologic insomnia F 51.04 [facility] [address] [facility] [id number] [address] [place] [id number] May, Other constipation K59.09 [facility] [address] [id number] [address] [place] [id number] 11 May, 2019 Thoracic back pain, unspecif ied back pain laterality, unspecified chronicity M54.6 [facility] [address] [id number] [address] [place] [id number] 06 May, 2019 Anxiety F41.9 and Thoracic b ack pain, unspecified back pain laterality, unspecified chronicity M54.6 [facility] [address] [id number] [address] [place] [address] May, [facility] [address] [id number] [address] [place] [id number] Apr, [facility] [address] [id number] [address] [place] [id number] Apr, [facility] [address] [id number] [address] [place] [address] Apr, Psychophysiological insomnia F51.04 [facility] [address] [id number] [address] [place] [id number] 15 Apr, 2019 Thoracic back pain, unspecif ied back pain laterality, unspecified chronicity M54.6 [place] [address] [address] [place] [id number] [address] [place] [id number] Apr, Thoracic back pain, unspecif ied back pain laterality, unspecified chronicity M54.6 [place] [address] [address] [place] [id number] [address] [place] [id number] Apr, Anxiety F41.9 [place] [address] [address] [place] [id number] [address] [place] [address] Apr, Psychophysiological insomnia F51.04 [place] [id number] [place] [id number] 30 Mar, 2019 Encounter for Medicare annua [...] both eyes, unspecified age-related cataract type H25.9 [place] [address] [address] [place] [id number] [address] [place] [id number] Mar, Thoracic back pain, unspecif ied back pain laterality, unspecified chronicity M54.6 [place] [address] [address] [facility] [id number] [address] [place] [id number] Mar, Psychophysiological insomnia F51.04 [place] [address] [address] [place] [id number] [address] [place] [address] Mar, Thoracic back pain, unspecif ied back pain laterality, unspecified chronicity M54.6 and Anxiety F41.9 [place] [address] [address] [place] [id number] [address] [place] [address] Mar, Psychophysiological insomnia F51.04 [facility] [address] [id number] [address] [place] [id number] Mar, [facility] [address] [id number] [address] [place] [address] Mar, Psychophysiological insomnia F51.04 [facility] [address] [id number] [address] [place] [phone] Mar, [facility] [address] [id number] [address] [place] [phone] Feb, [facility] [address] [id number] [address] [place] [id number] Feb, Thoracic back pain, unspecif ied back pain laterality, unspecified chronicity M54.6 [facility] [address] [id number] [address] [place] [phone] Feb, Anxiety F41.9 and Thoracic b ack pain, unspecified back pain laterality, unspecified chronicity M54.6 [facility] [address] [id number] [address] [place] [id number] Feb, Insomnia G47.00 ; HTN (hyper tension) I10 and Constipation K59.00 [facility] [address] [id number] [address] [place] [phone] Feb, [facility] [address] [facility] [id number] [address] [place] [id number] Jan, Thoracic back pain, unspecif ied back pain laterality, unspecified chronicity M54.6 [facility] [address] [id number] [address] [place] [id number] Jan, Anxiety F41.9 [facility] [address] [facility] [id number] [address] [place] [id number] Jan, Anxiety F41.9 [facility] [address] [facility] [id number] [address] [place] [id number] Jan, Anxiety F41.9 and Thoracic b ack pain, unspecified back pain laterality, unspecified chronicity M54.6 [facility] [address] [id number] [address] [place] [phone] Jan, [facility] [address] [id number] [address] [place] [id number] Jan, [facility] [address] [id number] [address] [place] [id number] Dec, Thoracic back pain, unspecif ied back pain laterality, unspecified chronicity M54.6 [facility] [address] [id number] [address] [place] [id number] Dec, Thoracic back pain, unspecif ied back pain laterality, unspecified chronicity M54.6 [facility] [address] [id number] [address] [place] [id number] Nov, Thoracic back pain, unspecif ied back pain laterality, unspecified chronicity M54.6 [facility] [address] [id number] [address] [place] [id number] Nov, Anxiety F41.9 and Thoracic b ack pain, unspecified back pain laterality, unspecified chronicity M54.6 [facility] [address] [id number] [address] [place] [id number] Nov, [facility] [address] [id number] [address] [place] [id number] Nov, [facility] [address] [id number] [address] [place] [phone] Nov, [facility] [address] [id number] [address] [place] [id number] Oct, Thoracic back pain, unspecif ied back pain laterality, unspecified chronicity M54.6 [facility] [address] [id number] [address] [place] [id number] Oct, Anxiety F41.9 and Thoracic b ack pain, unspecified back pain laterality, unspecified chronicity M54.6 [facility] [address] [id number] [address] [place] [id number] Oct, Schizophrenia, unspecified t ype F20.9 and Acute kidney injury N17.9 [facility] [address] [id number] [address] [place] [phone] Oct, [facility] [address] [id number] [address] [place] [id number] Oct, [facility] [address] [id number] [address] [place] [id number] Oct, Thoracic back pain, unspecif ied back pain laterality, unspecified chronicity M54.6 [facility] [address] [id number] [address] [place] [id number] Oct, [facility] [address] [id number] [address] [place] [id number] Oct, [facility] [address] [id number] [address] [place] [id number] Sep, Anxiety F41.9 [facility] [address] [id number] [address] [place] [id number] Sep, [facility] [address] [id number] [address] [place] [id number] Sep, Thoracic back pain, unspecif ied back pain laterality, unspecified chronicity M54.6 [facility] [address] [id number] [address] [place] [id number] Sep, [facility] [address] [id number] [address] [place] [id number] Sep, [facility] [address] [id number] [address] [place] [id number] Sep, [facility] [address] [id number] [address] [place] [phone] Sep, [facility] [address] [id number] [address] [place] [id number] Sep, [facility] [address] [facility] [id number] [address] [place] [id number] Sep, [facility] [address] [facility] [id number] [address] [place] [id number] Sep, Chronic pain G89.29 ; Chroni c kidney disease, stage III (moderate) N18.3 ; Hyperlipidemia E78.5 and Insomnia G47.00 [facility] [address] [facility] [id number] [address] [place] [id number] Sep, Thoracic back pain, unspecif ied back pain laterality, unspecified chronicity M54.6 [facility] [address] [facility] [id number] [address] [place] [id number] August, Anxiety F41.9 [facility] [address] [place] [id number] [address] [place] [address] August, Thoracic back pain, unspecif ied back pain laterality, unspecified chronicity M54.6 and Anxiety F41.9 [facility] [address] [facility] [id number] [address] [place] [id number] August, 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 [facility] [address] [facility] [id number] [address] [place] [address] August, 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 [facility] [address] [facility] [id number] [address] [place] [id number] August, [facility] [address] [facility] [id number] [address] [place] [id number] August, [facility] [address] [place] [id number] [address] [place] [id number] August, Thoracic back pain, unspecif ied back pain laterality, unspecified chronicity M54.6 [facility] [address] [facility] [id number] [address] [place] [address] August, [facility] [address] [facility] [id number] [address] [place] [id number] August, Anxiety F41.9 and Thoracic b ack pain, unspecified back pain laterality, unspecified chronicity M54.6 [facility] [address] [id number] [address] [place] [address] Jul, [facility] [address] [id number] [address] [place] [id number] Jul, Thoracic back pain, unspecif ied back pain laterality, unspecified chronicity M54.6 [facility] [address] [id number] [address] [place] [id number] Jun, Anxiety F41.9 and Thoracic b ack pain, unspecified back pain laterality, unspecified chronicity M54.6 [facility] [address] [id number] [address] [place] [address] Jun, Anxiety F41.9 and Thoracic b ack pain, unspecified back pain laterality, unspecified chronicity M54.6 [facility] [address] [id number] [address] [place] [id number] Jun, Thoracic back pain, unspecif ied back pain laterality, unspecified chronicity M54.6 [facility] [address] [id number] [address] [place] [id number] Jun, Anxiety F41.9 and Thoracic b ack pain, unspecified back pain laterality, unspecified chronicity M54.6 [facility] [address] [facility] [id number] [address] [place] [id number] May, [facility] [address] [id number] [address] [place] [phone] May, [facility] [address] [facility] [id number] [address] [place] [id number] May, [facility] [address] [facility] [id number] [address] [place] [address] May, Anxiety F41.9 and Encounter for medication monitoring Z51.81 [facility] [address] [id number] [address] [place] [id number] 05 May, 2018 Anxiety F41.9 and Thoracic b ack pain, unspecified back pain laterality, unspecified chronicity M54.6 [facility] [address] [id number] [address] [place] [id number] Apr, Hyperlipidemia 272.4 [facility] [address] [id number] [address] [place] [address] Apr, Chronic pain G89.29 ; Anxiet y F41.9 ; Cervical radiculopathy M54.12 and Vision loss H54.7 [place] [address] [id number] [address] [place] [address] Apr, [place] [address] [id number] [address] [place] [id number] Apr, Anxiety F41.9 and Thoracic b ack pain, unspecified back pain laterality, unspecified chronicity M54.6 [place] [address] [id number] [address] [place] [id number] 17 Mar, 2018 [facility] [address] [id number] [address] [place] [id number] 10 Mar, 2018 Anxiety F41.9 and Thoracic b ack pain, unspecified back pain laterality, unspecified chronicity M54.6 [facility] [address] [id number] [address] [place] [id number] 14 Feb, 2018 Anxiety F41.9 and Thoracic b ack pain, unspecified back pain laterality, unspecified chronicity M54.6 [facility] [address] [id number] [address] [place] [id number] 07 Feb, 2018 Thoracic back pain, unspecif ied back pain laterality, unspecified chronicity M54.6 [facility] [address] [id number] [address] [place] [id number] Jan, [facility] [address] [id number] [address] [place] [id number] 16 Jan, 2018 Anxiety F41.9 and Thoracic b ack pain, unspecified back pain laterality, unspecified chronicity M54.6 [facility] [address] [id number] [address] [place] [id number] 19 Dec, 2017 Diarrhea of presumed infecti ous origin R19.7 [facility] [address] [id number] [address] [place] [id number] 19 Dec, 2017 Diarrhea of presumed infecti ous origin R19.7 [facility] [address] [id number] [address] [place] [id number] 18 Dec, 2017 Thoracic back pain, unspecif ied back pain laterality, unspecified chronicity M54.6 [facility] [address] [id number] [address] [place] [id number] 17 Dec, 2017 [facility] [address] [id number] [address] [place] [id number] 17 Dec, 2017 Anxiety F41.9 and Thoracic b ack pain, unspecified back pain laterality, unspecified chronicity M54.6 [facility] [address] [id number] [address] [place] [id number] Dec, Diarrhea of presumed infecti ous origin R19.7 [facility] [address] [id number] [address] [place] [id number] Dec, [facility] [address] [id number] [address] [place] [id number] Dec, Anxiety F41.9 and Thoracic b ack pain, unspecified back pain laterality, unspecified chronicity M54.6 [facility] [address] [id number] [address] [place] [address] Dec, Anxiety F41.9 and Thoracic b ack pain, unspecified back pain laterality, unspecified chronicity M54.6 [facility] [address] [place] [id number] Dec, Diarrhea of presumed infectious origin R 19.7 ; Anxiety F41.9 ; Thoracic back pain, unspecified back pain laterality, unspecified chronicity M54.6 and HTN (hypertension) I10 [place] [address] [facility] [id number] [address] [place] [address] Dec, Anxiety F41.9 Via [facility] [address] [place] [id number] Dec, Anxiety F41.9 ; Diarrhea of presumed inf ectious origin R19.7 ; Generalized abdominal pain R10.84 and Localized edema R60.0 [place] [address] [facility] [id number] [address] [place] [id number] Nov, Via [employer] [address] [place] [id number] Nov, Anxiety F41.9 ; Urinary retention R33.9 ; Diarrhea of presumed infectious origin R19.7 ; Weakness R53.1 ; Acute kidney failure, unspecified N17.9 ; Chronic kidney disease, stage III (moderate) N18.3 and Thoracic back pain, unspecified back pain laterality, unspecified chronicity M54.6 [place] [address] [address] [facility] [id number] [address] [place] [id number] Oct, Thoracic back pain, unspecif ied back pain laterality, unspecified chronicity M54.6 and Anxiety F41.9 [place] [address] [address] [facility] [id number] [address] [place] [id number] Sep, Thoracic back pain, unspecif ied back pain laterality, unspecified chronicity M54.6 and Anxiety F41.9 [place] [address] [address] [facility] [id number] [address] [place] [id number] Sep, Thoracic back pain, unspecif ied back pain laterality, unspecified chronicity M54.6 ; Anxiety F41.9 and Encounter for medication monitoring Z51.81 [place] [address] [address] [facility] [id number] [address] [place] [id number] August, [place] [address] [address] [facility] [id number] [address] [place] [id number] August, Thoracic back pain, unspecif ied back pain laterality, unspecified chronicity M54.6 and Anxiety F41.9 [facility] [address] [place] [id number] [address] [place] [id number] August, Hyperlipidemia E78.5 and HTN (hypertension) I10 [facility] [address] [place] [id number] [address] [place] [id number] August, [place] [address] [address] [place] [id number] [address] [place] [id number] August, Medicare welcome exam Z00.00 ; Chronic kidney failure N18.9 ; Anxiety F41.9 ; Chronic pain G89.29 ; Insomnia G47.00 ; Hyperlipidemia E78.5 ; HTN (hypertension) I10 and Thoracic back pain, unspecified back pain laterality, unspecified chronicity M54.6 [place] [address] [place] [id number] [address] [place] [id number] Jul, [place] [address] [place] [id number] [address] [place] [id number] Jul, [place] [address] [place] [id number] [address] [place] [address] Jul, [place] [address] [place] [id number] [address] [place] [address] Jul, Anxiety F41.9 [place] [address] [place] [id number] [address] [place] [address] Jul, Thoracic back pain, unspecif ied back pain laterality, unspecified chronicity M54.6 and Anxiety F41.9 [place] [address] [facility] [id number] [address] [place] [address] Jun, Thoracic back pain, unspecif ied back pain laterality, unspecified chronicity M54.6 and Anxiety F41.9 [place] [address] [place] [id number] [address] [place] [address] May, Thoracic back pain, unspecif ied back pain laterality, unspecified chronicity M54.6 and Anxiety F41.9 [place] [address] [facility] [id number] [address] [place] [address] Apr, Thoracic back pain, unspecif ied back pain laterality, unspecified chronicity M54.6 and Anxiety F41.9 [place] [address] [facility] [id number] [address] [place] [address] Mar, [place] [address] [facility] [id number] [address] [place] [address] Mar, Thoracic back pain, unspecif ied back pain laterality, unspecified chronicity M54.6 and Anxiety F41.9 [place] [address] [facility] [id number] [address] [place] [address] Mar, Thoracic back pain, unspecif ied back pain laterality, unspecified chronicity M54.6 ; HTN (hypertension) I10 ; Hyperlipidemia E78.5 and Anxiety F41.9 [place] [address] [place] [id number] [address] [place] [address] Feb, Thoracic back pain, unspecif ied back pain laterality, unspecified chronicity M54.6 and Anxiety F41.9 [place] [address] [place] [id number] [address] [place] [address] Nov, [place] [address] [place] [id number] [address] [place] [address] Oct, [place] [address] [place] [id number] [address] [place] [address] Oct, Thoracic back pain, unspecif ied back pain laterality, unspecified chronicity M54.6 [place] [address] [facility] [id number] [address] [place] [address] Oct, HTN (hypertension) I10 ; Con stipation K59.00 ; Hyperlipidemia E78.5 ; Thoracic back pain, unspecified back pain laterality, unspecified chronicity M54.6 ; Chronic pain G89.29 ; Anxiety F41.9 ; Chronic kidney failure N18.9 ; Environmental allergies Z91.09 ; Vitamin D deficiency E55.9 and Primary insomnia F51.01 [facility] [address] [id number] [address] [place] [address] Sep, Anxiety F41.9 [facility] [address] [id number] [address] [place] [address] Sep, [facility] [address] [id number] [address] [place] [address] August, Anxiety F41.9 [facility] [address] [id number] [address] [place] [address] August, [facility] [address] [id number] [address] [place] [address] Jul, Anxiety F41.9 [facility] [address] [id number] [address] [place] [address] Jul, [facility] [address] [id number] [address] [place] [address] Jun, Anxiety F41.9 [facility] [address] [id number] [address] [place] [address] Jun, [facility] [address] [id number] [address] [place] [address] May, [facility] [address] [id number] [address] [place] [address] May, [facility] [address] [id number] [address] [place] [address] May, [facility] [address] [id number] [address] [place] [address] Apr, [facility] [address] [id number] [address] [place] [address] Apr, [facility] [address] [facility] [id number] [address] [place] [address] Apr, Anxiety F41.9 [facility] [address] [facility] [id number] [address] [place] [address] Apr, Anxiety F41.9 [facility] [address] [place] [id number] [address] [place] [address] Apr, [facility] [address] [place] [id number] [address] [place] [address] Mar, HTN (hypertension) I10 ; Phillip mor R25.1 ; Hypercholesterolemia E78.0 ; Constipation K59.00 ; Chronic pain G89.29 ; Hyperlipidemia E78.5 ; Insomnia G47.00 ; Anxiety F41.9 and Thoracic back pain, unspecified back pain laterality, unspecified chronicity M54.6 [facility] [address] [place] [id number] [address] [place] [address] Mar, Tremor R25.1 ; HTN (hyperten stas) I10 ; Hypercholesterolemia E78.0 ; Constipation K59.00 ; Chronic pain G89.29 ; Hyperlipidemia E78.5 ; Insomnia G47.00 ; Anxiety F41.9 and Thoracic back pain, unspecified back pain laterality, unspecified chronicity M54.6 [facility] [address] [place] [id number] [address] [place] [address] Mar, [facility] [address] [place] [id number] [address] [place] [address] Mar, [facility] [address] [place] [id number] [address] [place] [address] Feb, [facility] [address] [place] [id number] [address] [place] [address] Jan, [facility] [address] [place] [id number] [address] [place] [id number] Jan, [facility] [address] [place] [id number] [address] [place] [address] Dec, [facility] [address] [place] [id number] [address] [place] [address] Nov, [facility] [address] [id number] [address] [place] [address] Nov, [facility] [address] [facility] [id number] [address] [place] [address] Oct, Anxiety F41.9 [facility] [address] [facility] [id number] [address] [place] [address] Oct, Chronic pain G89.29 [facility] [address] [facility] [id number] [address] [place] [address] Sep, [facility] [address] [facility] [id number] [address] [place] [address] Sep, [facility] [address] [facility] [id number] [address] [place] [address] Sep, [facility] [address] [facility] [id number] [address] [place] [address] Sep, [facility] [address] [facility] [id number] [address] [place] [address] Sep, Chronic pain syndrome G89.4 [facility] [address] [facility] [id number] [address] [place] [address] Sep, HTN (hypertension) I10 ; Chr onic pain G89.29 ; Hypercholesterolemia E78.0 ; Chronic kidney failure N18.9 ; Constipation, unspecified constipation type K59.00 ; Anxiety F41.9 and Thoracic back pain, unspecified back pain laterality, unspecified chronicity M54.6 [facility] [address] [facility] [id number] [address] [place] [address] August, Chronic pain syndrome G89.4 [facility] [address] [facility] [id number] [address] [place] [id number] August, Chronic pain syndrome G89.4 [facility] [address] [facility] [id number] [address] [place] [address] Jul, Anxiety disorder, unspecifie d F41.9 and Chronic pain syndrome G89.4 [facility] [address] [facility] [id number] [address] [place] [address] Jul, Insomnia, unspecified G47.00 and Chronic pain syndrome G89.4 [facility] [address] [facility] [id number] [address] [place] [address] Jul, Allergic rhinitis J30.9 [facility] [address] [facility] [id number] [address] [place] [address] Jul, Constipation, unspecified K5 9.00 [facility] [address] [facility] [id number] [address] [place] [id number] Jul, [facility] [address] [facility] [id number] [address] [place] [address] Jun, [facility] [address] [facility] [id number] [address] [place] [address] Jun, [facility] [address] [facility] [id number] [address] [place] [address] Jun, [facility] [address] [facility] [id number] [address] [place] [address] Jun, [facility] [address] [facility] [id number] [address] [place] [address] Jun, [facility] [address] [place] [id number] [address] [place] [address] Jun, [facility] [address] [facility] [id number] [address] [place] [address] May, [facility] [address] [facility] [id number] [address] [place] [address] May, [facility] [address] [place] [id number] [address] [place] [address] May, Anxiety F41.9 ; Insomnia G47 .00 ; Hyperlipidemia E78.5 ; Chronic pain G89.29 ; HTN (hypertension) I10 ; Environmental allergies V15.09 and Constipation 564.00 [facility] [address] [facility] [id number] [address] [place] [id number] Apr, [facility] [address] [facility] [id number] [address] [place] [address] Apr, [facility] [address] [facility] [id number] [address] [place] [id number] Apr, [facility] [address] [facility] [id number] [address] [place] [address] Mar, [facility] [address] [facility] [id number] [address] [place] [address] Mar, [facility] [address] [place] [id number] [place] [address] Mar, [facility] [address] [place] [id number] [address] [place] [address] Feb, [facility] [address] [place] [id number] [place] [address] Feb, [facility] [address] [place] [id number] [address] [place] [address] Feb, [facility] [address] [address] Jan, HTN (hypertension) I10 ; Con stipation K59.00 ; Chronic pain G89.29 ; Hyperlipidemia E78.5 ; Hypercholesterolemia E78.0 ; Insomnia G47.00 and Anxiety F41.9 [facility] [address] [place] [id number] [address] [place] [address] Jan, [facility] [address] [facility] [id number] [address] [place] [address] Dec, [facility] [address] [place] [id number] [place] [address] Nov, [facility] [address] [place] [id number] [address] [place] [address] Oct, Chronic kidney disease, unsp ecified 585.9 ; Chronic pain syndrome 338.4 ; Hyperlipidemia 272.4 and Essential hypertension 401.9 [facility] [address] [facility] [id number] [address] [place] [address] Oct, Chronic kidney disease 585.9 [facility] [address] [facility] [id number] [address] [place] [id number] 15 Oct, 2014 [facility] [address] [facility] [id number] [address] [place] [address] Oct, Chronic kidney disease, unsp ecified 585.9 ; Hypercalcemia 275.42 ; Hyperlipidemia 272.4 ; Essential hypertension 401.9 ; Chronic pain syndrome 338.4 ; Insomnia 780.52 ; Constipation 564.00 ; Environmental allergies V15.09 and Anxiety 300.00 [facility] [address] [facility] [id number] [address] [place] [address] 15 Oct, 2014 Chronic kidney disease 585.9 [facility] [address] [facility] [id number] [address] [place] [address] Oct, [facility] [address] [facility] [id number] [address] [place] [id number] 14 Oct, 2014 Chronic kidney disease 585.9 and Hyperlipidemia 272.4 [facility] [address] [facility] [id number] [address] [place] [address] Oct, [facility] [address] [facility] [id number] [address] [place] [address] Oct, [facility] [address] [facility] [id number] [address] [place] [id number] 18 Sep, 2014 [facility] [address] [facility] [id number] [address] [place] [address] Sep, [facility] [address] [facility] [id number] [address] [place] [address] Sep, Chronic kidney disease 585.9 and Hyperlipidemia 272.4 [facility] [address] [facility] [id number] [address] [place] [address] Sep, [facility] [address] [id number] [address] [place] [address], [place] [address] August, [facility] [address] [id number] [address] [place] [address], [place] [address] August, [facility] [address] [id number] [address] [place] [address], [place] [address] Jul, [facility] [address] [id number] [address] [place] [address], [place] [address] Jul, [facility] [address] [id number] [address] [place] [address], [place] [address] Jun, [facility] [address] [id number] [address] [place] [address], [place] [address] Jun, [facility] [address] [id number] [address] [place] [address], [place] [address] Jun, [facility] [address] [id number] [address] [place] [address], [place] [address] Jun, [facility] [address] [id number] [address] [place] [address], [place] [address] Jun, [facility] [address] [id number] [address] [place] [address], [place] [address] Jun, [facility] [address] [id number] [address] [place] [address], [place] [address] Jun, [facility] [address] [id number] [address] [place] [address], [place] [address] Jun, [facility] [address] [id number] [address] [place] [address], [place] [address] May, [facility] [address] [id number] [address] [place] [address], [place] [address] May, [facility] [address] [id number] [address] [place] [address], [place] [address] May, [facility] [address] [id number] [address] [place] [address], [place] [address] May, [facility] [address] [id number] [address] [place] [address], [place] [address] Apr, [facility] [address] [id number] [address] [place] [address], [place] [address] Apr, [facility] [address] [id number] [address] [place] [address], [place] [address] Apr, [facility] [address] [id number] [address] [place] [address], [place] [address] Apr, [facility] [address] [id number] [address] [place] [address], [place] [address] Apr, [facility] [address] [id number] [address] [place] [address], [place] [address] Apr, [facility] [address] [id number] [address] [place] [address], [place] [address] Apr, [facility] [address] [id number] [address] [place] [address], [place] [address] Apr, [facility] [address] [id number] [address] [place] [address], [place] [address] Apr, [facility] [address] [id number] [address] [place] [address], [place] [address] Apr, [facility] [address] [id number] [address] [place] [address], [place] [address] Apr, [facility] [address] [id number] [address] [place] [address], [place] [address] Mar, [facility] [address] [id number] [address] [place] [address], [place] [address] Mar, [facility] [address] [id number] [address] [place] [address], [place] [address] Feb, [facility] [address] [id number] [address] [place] [address], [place] [address] Feb, [facility] [address] [id number] [address] [place] [address], [place] [address] Feb, [facility] [address] [id number] [address] [place] [address], [place] [address] Feb, [facility] [address] [id number] [address] [place] [address], [place] [address] Feb, [facility] [address] [id number] [address] [place] [address], [place] [address] Feb, [facility] [address] [id number] [address] [place] [address], [place] [address] Feb, [facility] [address] [id number] [address] [place] [address], [place] [address] Feb, [facility] [address] [id number] [address] [place] [address], [place] [address] Feb, [facility] [address] [id number] [address] [place] [address], [place] [address] Feb, [facility] [address] [id number] [address] [place] [address], [place] [address] Jan, [facility] [address] [id number] [address] [place] [address], [place] [address] Jan, [facility] [address] [id number] [address] [place] [address], [place] [address] Jan, [facility] [address] [id number] [address] [place] [address], [place] [address] Jan, [facility] [address] [id number] [address] [place] [address], [place] [address] Jan, [facility] [address] [id number] [address] [place] [address], [place] [address] Jan, [facility] [address] [id number] [address] [place] [address], [place] [address] Jan, [facility] [address] [id number] [address] [place] [address], [place] [address] Jan, [facility] [address] [id number] [address] [place] [address], [place] [address] 16 Jan, 2014 [facility] [address] [id number] [address] [place] [address], [place] [address] Jan, [facility] [address] [id number] [address] [place] [address], [place] [address] Jan, [facility] [address] [id number] [address] [place] [address], [place] [address] Dec, 2013 [facility] [address] [id number] [address] [place] [address], [place] [address] 26 Dec, 2013 [facility] [address] [id number] [address] [place] [address], [place] [address] 19 Dec, 2013 [facility] [address] [id number] [address] [place] [address], [place] [address] Dec, 2013 [facility] [address] [id number] [address] [place] [address], [place] [address] 18 Dec, 2013 [facility] [address] [id number] [address] [place] [address], [place] [address] 18 Dec, 2013 [facility] [address] [id number] [address] [place] [address], [place] [address] Dec, [facility] [address] [id number] [address] [place] [address], [place] [address] Dec, [facility] [address] [id number] [address] [place] [address], [place] [address] Nov, [facility] [address] [id number] [address] [place] [address], [place] [address] Nov, [facility] [address] [id number] [address] [place] [address], [place] [address] Nov, [facility] [address] [id number] [address] [place] [address], [place] [address] Nov, [facility] [address] [id number] [address] [place] [address], [place] [address] Nov, [facility] [address] [id number] [address] [place] [address], [place] [address] Nov, [facility] [address] [id number] [address] [place] [address], [place] [address] Nov, [facility] [address] [id number] [address] [place] [address], [place] [address] Nov, [facility] [address] [id number] [address] [place] [address], [place] [address] Oct, [facility] [address] [id number] [address] [place] [address], [place] [address] Oct, [facility] [address] [id number] [address] [place] [address], [place] [address] Oct, [facility] [address] [id number] [address] [place] [address], [place] [address] Oct, [facility] [address] [id number] [address] [place] [address], [place] [address] Sep, [facility] [address] [id number] [address] [place] [address], [place] [address] Sep, [facility] [address] [address] [id number] [address] [place] [address], [place] [address] Sep, [facility] [address] [id number] [address] [place] [address], [place] [address] Sep, [facility] [address] [id number] [address] [place] [address] Sep, [facility] [address] [id number] [address] [place] [address], [place] [address] Sep, [facility] [address] [id number] [address] [place] [address], [place] [address] Sep, [facility] [address] [id number] [address] [place] [address], [place] [address] Sep, [facility] [address] [id number] [address] [place] [address], [place] [address] August, [facility] [address] [id number] [address] [place] [address], [place] [address] August, [facility] [address] [id number] [address] [place] [address], [place] [address] August, [facility] [address] [id number] [address] [place] [address], [place] [address] August, [facility] [address] [id number] [address] [place] [address], [place] [address] August, [facility] [address] [id number] [address] [place] [address], [place] [address] August, [facility] [address] [id number] [address] [place] [address], [place] [address] August, [facility] [address] [id number] [address] [place] [address], [place] [address] August, [facility] [address] [id number] [address] [place] [address], [place] [address] August, [facility] [address] [id number] [address] [place] [address], [place] [address] August, [facility] [address] [id number] [address] [place] [address], [place] [address] Jul, [facility] [address] [id number] [address] [place] [address], [place] [address] Jul, [facility] [address] [id number] [address] [place] [address], [place] [address] Jul, [facility] [address] [id number] [address] [place] [address], [place] [address] Jul, [facility] [address] [id number] [address] [place] [address], [place] [address] Jul, [facility] [address] [id number] [address] [place] [address], [place] [address] Jul, [facility] [address] [id number] [facility] [address] Jul, [facility] [address] [id number] [address] [place] [address], [place] [address] Jul, [facility] [address] [id number] [address] [place] [address], [place] [address] Jun, [facility] [address] [id number] [address] [place] [address], [place] [address] Jun, [facility] [address] [id number] [address] [place] [address], [place] [address] Jun, [facility] [address] [id number] [address] [place] [address], [place] [address] Jun, [facility] [address] [id number] [address] [place] [address], [place] [address] Jun, [facility] [address] [id number] [address] [place] [address], [place] [address] Jun, [facility] [address] [id number] [address] [place] [address], [place] [address] May, [facility] [address] [id number] [address] [place] [address], [place] [address] May, [facility] [address] [id number] [address] [place] [address], [place] [address] May, [facility] [address] [id number] [address] [place] [address], [place] [address] May, [facility] [address] [id number] [address] [place] [address], [place] [address] May, [facility] [address] [id number] [address] [place] [address], [place] [address] May, [facility] [address] [id number] [address] [place] [address], [place] [address] May, [facility] [address] [id number] [address] [place] [address], [place] [address] Apr, [facility] [address] [id number] [address] [place] [address], [place] [address] Apr, [facility] [address] [id number] [address] [place] [address], [place] [address] Apr, [facility] [address] [id number] [address] [place] [address], [place] [address] Apr, [facility] [address] [id number] [address] [place] [address], [place] [address] Apr, [facility] [address] [id number] [address] [place] [address], [place] [address] Apr, [facility] [address] [id number] [address] [place] [address], [place] [address] Mar, [facility] [address] [id number] [address] [place] [address], [place] [address] Mar, [facility] [address] [id number] [address] [place] [address], [place] [address] Mar, [facility] [address] [id number] [address] [place] [address], [place] [address] Mar, [facility] [address] [id number] [address] [place] [address], [place] [address] Mar, [facility] [address] [id number] [address] [place] [address], [place] [address] 19 Mar, 2013 [facility] [address] [id number] [address] [place] [address], [place] [address] 16 Mar, 2013 [facility] [address] [id number] [address] [place] [address], [place] [address] 16 Mar, 2013 [facility] [address] [id number] [address] [place] [address], [place] [address] 12 Mar, 2013 [facility] [address] [id number] [address] [place] [address], [place] [address] Mar, [facility] [address] [id number] [address] [place] [address], [place] [address] Feb, [facility] [address] [id number] [address] [place] [address], [place] [address] Feb, [facility] [address] [id number] [address] [place] [address], [place] [address] Feb, [facility] [address] [id number] [address] [place] [address], [place] [address] Feb, [facility] [address] [id number] [address] [place] [address], [place] [address] Feb, [facility] [address] [id number] [address] [place] [address], [place] [address] Feb, [facility] [address] [id number] [address] [place] [address], [place] [address] Feb, [facility] [address] [id number] [address] [place] [address], [place] [address] Feb, [facility] [address] [id number] [address] [place] [address], [place] [address] Feb, [facility] [address] [id number] [address] [place] [address], [place] [address] Feb, [facility] [address] [id number] [address] [place] [address], [place] [address] Jan, [facility] [address] [id number] [address] [place] [address], [place] [address] Jan, [facility] [address] [id number] [address] [place] [address], [place] [address] Jan, [facility] [address] [id number] [address] [place] [address], [place] [address] Jan, [facility] [address] [id number] [address] [place] [address], [place] [address] Jan, [facility] [address] [id number] [address] [place] [address] [place] [address] Jan, [facility] [address] [id number] [address] [place] [address], [place] [address] 17 Jan, 2013 [facility] [address] [id number] [address] [place] [address], [place] [address] Jan, [facility] [address] [id number] [address] [place] [address], [place] [address] Jan, [facility] [address] [id number] [address] [place] [address], [place] [address] Dec, [facility] [address] [id number] [address] [place] [address], [place] [address] Dec, [facility] [address] [id number] [address] [place] [address], [place] [address] Dec, [facility] [address] [id number] [address] [place] [address], [place] [address] Dec, [facility] [address] [id number] [address] [place] [address], [place] [address] Nov, [facility] [address] [id number] [address] [place] [address], [place] [address] Nov, [facility] [address] [id number] [address] [place] [address], [place] [address] Nov, [facility] [address] [id number] [address] [place] [address], [place] [address] Nov, [facility] [address] [id number] [address] [place] [address], [place] [address] Nov, [facility] [address] [id number] [address] [place] [address], [place] [address] Nov, [facility] [address] [id number] [address] [place] [address], [place] [address] Oct, [facility] [address] [id number] [address] [place] [address], [place] [address] Oct, [facility] [address] [id number] [address] [place] [address], [place] [address] 12 Oct, 2012 [facility] [address] [id number] [address] [place] [address], [place] [address] 08 Oct, 2012 [facility] [address] [id number] [address] [place] [address], [place] [address] 27 Sep, 2012 [facility] [address] [id number] [address] [place] [address], [place] [address] Sep, [facility] [address] [id number] [address] [place] [address], [place] [address] 17 Sep, 2012 [facility] [address] [id number] [address] [place] [address], [place] [address] 14 Sep, 2012 [facility] [address] [id number] [address] [place] [address], [place] [address] Sep, [facility] [address] [id number] [address] [place] [address], [place] [address] August, [facility] [address] [id number] [address] [place] [address], [place] [address] 2012 [facility] [address] [id number] [address] [place] [address], [place] [address] Jul, [facility] [address] [id number] [address] [place] [address], [place] [address] Jul, [facility] [address] [id number] [address] [place] [address], [place] [address] 15 Jul, 2012 [facility] [address] [id number] [address] [place] [address], [place] [address] 09 Jul, 2012 [facility] [address] [id number] [address] [place] [address], [place] [address] 08 Jul, 2012 [facility] [address] [id number] [address] [place] [address], [place] [address] 26 Jun, 2012 [facility] [address] [id number] [address] [place] [address], [place] [address] Jun, [facility] [address] [id number] [address] [place] [address], [place] [address] Jun, [facility] [address] [id number] [address] [place] [address], [place] [address] Jun, [facility] [address] [id number] [address] [place] [address], [place] [address] Jun, [facility] [address] [id number] [address] [place] [address], [place] [address] May, [facility] [address] [id number] [address] [place] [address], [place] [address] May, [facility] [address] [id number] [address] [place] [address], [place] [address] May, [facility] [address] [id number] [address] [place] [address], [place] [address] May, [facility] [address] [id number] [address] [place] [address], [place] [address] May, [facility] [address] [id number] [address] [place] [address], [place] [address] 14 May, 2012 [facility] [address] [id number] [address] [place] [address], [place] [address] May, [facility] [address] [id number] [address] [place] [address], [place] [address] 08 May, 2012 [facility] [address] [id number] [address] [place] [address], [place] [address] May, [facility] [address] [id number] [address] [place] [address], [place] [address] Apr, [facility] [address] [id number] [address] [place] [address], [place] [address] Apr, [facility] [address] [id number] [address] [place] [address], [place] [address] Apr, [facility] [address] [id number] [address] [place] [address], [place] [address] 14 Apr, 2012 [facility] [address] [id number] [address] [place] [address], [place] [address] Apr, [facility] [address] [id number] [address] [place] [address], [place] [address] Mar, [facility] [address] [id number] [address] [place] [address], [place] [address] Mar, [facility] [address] [id number] [address] [place] [address], [place] [address] Mar, [facility] [address] [id number] [address] [place] [address], [place] [address] Mar, [facility] [address] [id number] [address] [place] [address], [place] [address] Mar, [facility] [address] [id number] [address] [place] [address], [place] [address] Mar, [facility] [address] [id number] [address] [place] [address], [place] [address] Mar, [facility] [address] [id number] [address] [place] [address], [place] [address] Mar, [facility] [address] [id number] [address] [place] [address], [place] [address] Mar, [facility] [address] [id number] [address] [place] [address], [place] [address] Mar, [facility] [address] [id number] [address] [place] [address], [place] [address] Feb, [facility] [address] [id number] [address] [place] [address], [place] [address] Feb, [facility] [address] [id number] [address] [place] [address], [place] [address] 29 Feb, 2012 [facility] [address] [id number] [address] [place] [address], [place] [address] Feb, [facility] [address] [id number] [address] [place] [address], [place] [address] Feb, [facility] [address] [id number] [address] [place] [address], [place] [address] Feb, [facility] [address] [id number] [address] [place] [address], [place] [address] Feb, [facility] [address] [id number] [address] [place] [address], [place] [address] Feb, [facility] [address] [id number] [address] [place] [address], [place] [address] 16 Feb, 2012 [facility] [address] [id number] [address] [place] [address], [place] [address] 16 Feb, 2012 [facility] [address] [id number] [address] [place] [address], [place] [address] Feb, [facility] [address] [id number] [address] [place] [address], [place] [address] Feb, [facility] [address] [id number] [address] [place] [address], [place] [address] Feb, [facility] [address] [id number] [address] [place] [address], [place] [address] Feb, [facility] [address] [id number] [address] [place] [address] Feb, [facility] [address] [id number] [address] [place] [address] 08 Feb, 2012 [facility] [address] [id number] [address] [place] [address], [place] [address] Feb, [facility] [address] [id number] [address] [place] [address] Feb, [facility] [address] [id number] [address] [place] [address], [place] [address] 31 Jan, 2012 [facility] [address] [id number] [address] [place] [address], [place] [address] Jan, [facility] [address] [id number] [address] [place] [address], [place] [address] Jan, [facility] [address] [id number] [address] [place] [address], [place] [address] Jan, [facility] [address] [id number] [address] [place] [address], [place] [address] Jan, [facility] [address] [id number] [address] [place] [address], [place] [address] Jan, [facility] [address] [id number] [address] [place] [address], [place] [address] Jan, [facility] [address] [id number] [address] [place] [address], [place] [address] Jan, [facility] [address] [id number] [address] [place] [address], [place] [address] Jan, [facility] [address] [id number] [address] [place] [address], [place] [address] Jan, [facility] [address] [id number] [address] [place] [address], [place] [address] 24 Dec, 2011 [facility] [address] [id number] [address] [place] [address], [place] [address] 18 Dec, 2011 [facility] [address] [id number] [address] [place] [address], [place] [address] Dec, [facility] [address] [id number] [address] [place] [address], [place] [address] Dec, [facility] [address] [id number] [address] [place] [address], [place] [address] Nov, [facility] [address] [id number] [address] [place] [address], [place] [address] Nov, [facility] [address] [id number] [address] [place] [address], [place] [address] Nov, [facility] [address] [id number] [address] [place] [address], [place] [address] Nov, [facility] [address] [id number] [address] [place] [address], [place] [address] Nov, [facility] [address] [id number] [address] [place] [address], [place] [address] Nov, [facility] [address] [id number] [address] [place] [address], [place] [address] Oct, [facility] [address] [id number] [address] [place] [address], [place] [address] Oct, [facility] [address] [id number] [address] [place] [address], [place] [address] Oct, [facility] [address] [id number] [address] [place] [address], [place] [address] Oct, [facility] [address] [id number] [address] [place] [address], [place] [address] Oct, [facility] [address] [id number] [address] [place] [address], [place] [address] Sep, [facility] [address] [id number] [address] [place] [address], [place] [address] Sep, [facility] [address] [id number] [address] [place] [address], [place] [address] Sep, [facility] [address] [id number] [address] [place] [address], [place] [address] Sep, [facility] [address] [id number] [address] [place] [address], [place] [address] Sep, [facility] [address] [id number] [address] [place] [address], [place] [address] August, [facility] [address] [id number] [address] [place] [address], [place] [address] August, [facility] [address] [id number] [address] [place] [address], [place] [address] August, [facility] [address] [id number] [address] [place] [address], [place] [address] August, [facility] [address] [id number] [address] [place] [address], [place] [address] 27 Jul, 2011 [facility] [address] [id number] [address] [place] [address], [place] [address] 24 Jul, 2011 [facility] [address] [id number] [address] [place] [address], [place] [address] Jul, [facility] [address] [id number] [address] [place] [address], [place] [address] Jul, [facility] [address] [id number] [address] [place] [address], [place] [address] Jul, [facility] [address] [id number] [address] [place] [address], [place] [address] Jul, [facility] [address] [id number] [address] [place] [address], [place] [address] Jul, [facility] [address] [id number] [address] [place] [address], [place] [address] 10 Jul, 2011 [facility] [address] [id number] [address] [place] [address], [place] [address] 09 Jul, 2011 [facility] [address] [id number] [address] [place] [address], [place] [address] 07 Jul, 2011 [facility] [address] [id number] [address] [place] [address], [place] [address] 05 Jul, 2011 [facility] [address] [id number] [address] [place] [address], [place] [address] 03 Jul, 2011 [facility] [address] [id number] [address] [place] [address], [place] [address] 02 Jul, 2011 [facility] [address] [id number] [address] [place] [address], [place] [address] Jul, [facility] [address] [id number] [address] [place] [address], [place] [address] 28 Jun, 2011 [facility] [address] [id number] [address] [place] [address], [place] [address] 27 Jun, 2011 [facility] [address] [id number] [address] [place] [address], [place] [address] 20 Jun, 2011 [facility] [address] [id number] [address] [place] [address], [place] [address] 16 Jun, 2011 [facility] [address] [id number] [address] [place] [address], [place] [address] 27 May, 2011 [facility] [address] [id number] [address] [place] [address], [place] [address] 16 May, 2011 [facility] [address] [id number] [address] [place] [address], [place] [address] 09 May, 2011 [facility] [address] [id number] [address] [place] [address], [place] [address] Apr, [facility] [address] [id number] [address] [place] [address], [place] [address] 18 Apr, 2011 [facility] [address] [id number] [address] [place] [address], [place] [address] Apr, [facility] [address] [id number] [address] [place] [address], [place] [address] Apr, [facility] [address] [address] [id number] [address] [place] [address], [place] [address] 09 Apr, 2011 [facility] [address] [id number] [address] [place] [address], [place] [address] Mar, [facility] [address] [id number] [address] [place] [address], [place] [address] Mar, [facility] [address] [id number] [address] [place] [address], [place] [address] Mar, [facility] [address] [id number] [address] [place] [address], [place] [address] 20 Mar, 2011 [facility] [address] [id number] [address] [place] [address], [place] [address] 16 Mar, 2011 [facility] [address] [id number] [address] [place] [address], [place] [address] Mar, [facility] [address] [id number] [address] [place] [address], [place] [address] 05 Mar, 2011 [facility] [address] [id number] [address] [place] [address], [place] [address] 29 Feb, 2011 [facility] [address] [id number] [address] [place] [address], [place] [address] Feb, [facility] [address] [id number] [address] [place] [address], [place] [address] Feb, [facility] [address] [id number] [address] [place] [address], [place] [address] Feb, [facility] [address] [id number] [address] [place] [address] 16 Feb, 2011 [facility] [address] [id number] [address] [place] [address], [place] [address] 14 Feb, 2011 [facility] [address] [id number] [address] [place] [address] Feb, [facility] [address] [id number] [address] [place] [address] 31 Jan, 2011 [facility] [address] [id number] [address] [place] [address] 31 Jan, 2011 [facility] [address] [id number] [address] [place] [address], [place] [address] 31 Jan, 2011 [facility] [address] [id number] [address] [place] [address] 18 Jan, 2011 [facility] [address] [id number] [address] [place] [address] 17 Jan, 2011 [facility] [address] [id number] [address] [place] [address], [place] [address] 17 Jan, 2011 [facility] [address] [id number] [address] [place] [address], [place] [address] 17 Jun, 2010 [facility] [address] [id number] [address] [place] [address], [place] [address] 30 Mar, 2010 [facility] [address] [id number] [address] [place] [address], [place] [address] 20 Mar, 2010 [facility] [address] [id number] [address] [place] [address], [place] [address] 14 Mar, 2010 [facility] [address] [id number] [address] [place] [address], [place] [address] 14 Mar, 2010 [facility] [address] [id number] [address] [place] [address], [place] [address] 13 Mar, 2010 [facility] [address] [id number] [address] [place] [address], [place] [address] 07 Mar, 2010 [facility] [address] [id number] [address] [place] [address], [place] [address] 02 Mar, 2010 [facility] [address] [id number] [address] [place] [address], [place] [address] 01 Mar, 2010 [facility] [address] [id number] [address] [place] [address], [place] [address] 30 Feb, 2010 [facility] [address] [id number] [address] [place] [address], [place] [address] 29 Feb, 2010 [facility] [address] [id number] [address] [place] [address], [place] [address] 17 Feb, 2010 [facility] [address] [id number] [address] [place] [address], [place] [address] 17 Feb, 2010 [facility] [address] [id number] [address] [place] [address], [place] [address] 16 Feb, 2010 [facility] [address] [id number] [address] [place] [address], [place] [address] Feb, [facility] [address] [id number] [address] [place] [address], [place] [address] Feb, [facility] [address] [id number] [address] [place] [address], [place] [address] Feb, [facility] [address] [id number] [address] [place] [address], [place] [address] Jan, [facility] [address] [id number] [address] [place] [address], [place] [address] Jan, [facility] [address] [id number] [address] [place] [address], [place] [address] Jan, [facility] [address] [id number] [address] [place] [address], [place] [address] Jan, [facility] [address] [id number] [address] [place] [address], [place] [address] 29 Mar, 2009 [facility] [address] [id number] [address] [place] [address], [place] [address] 22 Mar, 2009 [facility] [address] [id number] [address] [place] [address], [place] [address] Mar, [facility] [address] [id number] [address] [place] [address] 19 Mar, 2009 [facility] [address] [id number] [address] [place] [address], [place] [address] 14 Mar, 2009 [facility] [address] [id number] [address] [place] [id number] 10 Mar, 2009 [facility] [address] [id number] [address] [place] [address], [place] [address] 18 Feb, 2009 [facility] [address] [id number] [address] [place] [address], [place] [address] 18 Feb, 2009 [facility] [address] [id number] [address] [place] [address] 13 Jan, 2009 [facility] [address] [id number] [address] [place] [id number] Sep, [facility] [address] [facility] [id number] [address] [address] May, IMMUNIZATIONS No Known Immunizations SOCIAL HISTORY [...] Surgical History Left ear surgery Hospitalization History [facility] in [place]- Spontane ous Pneumothorax Hospitalization History [facility]- Colon resection Hospitalization History [facility] - diarrhea/ couldnt urin ate nov 2017 Hospitalization History pain /hip to foot right side 10/16/19 19
--- OUTSIDE RECORDS SUMMARY | 2019-08-28 08:46 | XMS REPORT ---
Author Author Dixon DE LEON [facility] Address [address] [place] [address] Care Team Providers Care Blemish Remover Name Role Phone STEPHAN DE LEON Unavailable PROBLEMS Type Condition ICD9-CM Code HHN94-UM Code Onset Dates Condition S tatus SNOMED Code Problem HTN (hypertension) I10 Active 3 [id number] Problem Anxiety F41.9 Active 02662060 Problem Schizophrenia, unspecified type F20.9 Active 92419414 Problem Age-related cataract of both eyes, unspecified age-related cataract type H25.9 Active 84042127 Problem Hyperlipidemia E78.5 Active 23488 004 Problem Constipation K59.00 Active 3566637 8 Problem Thoracic back pain, unspecif ied back pain laterality, unspecified chronicity M54.6 Active 069964989 Problem Environmental allergies Z91.09 Active [id number] ALLERGIES No Information ENCOUNTERS Encounter Location Date Diagnosis [place] [address] [address] [facility] [id number] [address] [place] [address] August, [facility] [address] [id number] [address] [place] [address] August, [facility] [address] [facility] [id number] [address] [place] [address] August, [facility] [address] [id number] [address] [place] [address] August, Thoracic back pain, unspecif ied back pain laterality, unspecified chronicity M54.6 [facility] [address] [facility] [id number] [address] [place] [address] August, [facility] [address] [facility] [id number] [address] [place] [address] Jul, Anxiety F41.9 and Thoracic b ack pain, unspecified back pain laterality, unspecified chronicity M54.6 [facility] [address] [id number] [address] [place] [address] [address], [address] [facility] [address] [id number] [address] [place] [address] Jul, [facility] [address] [id number] [address] [place] [address] Jul, Thoracic back pain, unspecif ied back pain laterality, unspecified chronicity M54.6 ; Anxiety F41.[address] [facility] [address] [id number] [address] [place] [address] Jul, Psychophysiological insomnia F51.04 [facility] [address] [id number] [address] [place] [address] Jul, [facility] [address] [id number] [address] [place] [address] Jul, [facility] [address] [id number] [address] [place] [address] Jul, [facility] [address] [id number] [address] [place] [address] Jul, [facility] [address] [id number] [address] [place] [address] Jul, Thoracic back pain, unspecif ied back pain laterality, unspecified chronicity M54.6 [facility] [address] [id number] [address] [place] [address] Jul, Anxiety F41.9 and Thoracic b ack pain, unspecified back pain laterality, unspecified chronicity M54.6 [facility] [address] [id number] [address] [place] [address] Jun, [facility] [address] [id number] [address] [place] [address] Jun, Thoracic back pain, unspecif ied back pain laterality, unspecified chronicity M54.6 [facility] [address] [id number] [address] [place] [address] 09 Jun, 2019 [facility] [address] [id number] [address] [place] [address] 04 Jun, 2019 Anxiety F41.9 and Thoracic b ack pain, unspecified back pain laterality, unspecified chronicity M54.6 [facility] [address] [id number] [address] [place] [address] [address] Jun, 2019 [facility] [address] [id number] [address] [place] [address] May, [facility] [address] [id number] [address] [place] [address] May, Psychophysiologic insomnia F 51.04 [facility] [address] [facility] [id number] [address] [place] [address] May, Other constipation K59.09 [facility] [address] [id number] [address] [place] [address] 11 May, 2019 Thoracic back pain, unspecif ied back pain laterality, unspecified chronicity M54.6 [facility] [address] [id number] [address] [place] [phone] 06 May, 2019 Anxiety F41.9 and Thoracic b ack pain, unspecified back pain laterality, unspecified chronicity M54.6 [facility] [address] [id number] [address] [place] [address] May, [facility] [address] [id number] [address] [place] [address] Apr, [facility] [address] [id number] [address] [place] [address] Apr, [facility] [address] [id number] [address] [place] [address] Apr, Psychophysiological insomnia F51.04 [facility] [address] [id number] [address] [place] [address] 15 Apr, 2019 Thoracic back pain, unspecif ied back pain laterality, unspecified chronicity M54.6 [place] [address] [address] [place] [id number] [address] [place] [address] Apr, Thoracic back pain, unspecif ied back pain laterality, unspecified chronicity M54.6 [place] [address] [address] [place] [id number] [address] [place] [address] Apr, Anxiety F41.9 [place] [address] [address] [place] [id number] [address] [place] [address] Apr, Psychophysiological insomnia F51.04 [place] [address] [id number] [place] [address] 30 Mar, 2019 Encounter for Medicare annua [...] both eyes, unspecified age-related cataract type H25.9 [place] [address] [address] [place] [id number] [address] [place] [address] Mar, Thoracic back pain, unspecif ied back pain laterality, unspecified chronicity M54.6 [place] [address] [address] [facility] [id number] [address] [place] [address] Mar, Psychophysiological insomnia F51.04 [place] [address] [address] [place] [id number] [address] [place] [address] Mar, Thoracic back pain, unspecif ied back pain laterality, unspecified chronicity M54.6 and Anxiety F41.9 [place] [address] [address] [place] [id number] [address] [place] [address] Mar, Psychophysiological insomnia F51.04 [facility] [address] [id number] [address] [place] [address] Mar, [facility] [address] [id number] [address] [place] [address] Mar, Psychophysiological insomnia F51.04 [facility] [address] [id number] [address] [place] [address] Mar, [facility] [address] [id number] [address] [place] [address] Feb, [facility] [address] [id number] [address] [place] [address] Feb, Thoracic back pain, unspecif ied back pain laterality, unspecified chronicity M54.6 [facility] [address] [id number] [address] [place] [address] Feb, Anxiety F41.9 and Thoracic b ack pain, unspecified back pain laterality, unspecified chronicity M54.6 [facility] [address] [id number] [address] [place] [address] Feb, Insomnia G47.00 ; HTN (hyper tension) I10 and Constipation K59.00 [facility] [address] [id number] [address] [place] [address] Feb, [facility] [address] [facility] [id number] [address] [place] [address] Jan, Thoracic back pain, unspecif ied back pain laterality, unspecified chronicity M54.6 [facility] [address] [id number] [address] [place] [address] Jan, Anxiety F41.9 [facility] [address] [facility] [id number] [address] [place] [address] Jan, Anxiety F41.9 [facility] [address] [facility] [id number] [address] [place] [address] Jan, Anxiety F41.9 and Thoracic b ack pain, unspecified back pain laterality, unspecified chronicity M54.6 [facility] [address] [id number] [address] [place] [address] Jan, [facility] [address] [id number] [address] [place] [address] Jan, [facility] [address] [id number] [address] [place] [address] Dec, Thoracic back pain, unspecif ied back pain laterality, unspecified chronicity M54.6 [facility] [address] [id number] [address] [place] [address] Dec, Thoracic back pain, unspecif ied back pain laterality, unspecified chronicity M54.6 [facility] [address] [id number] [address] [place] [address] Nov, Thoracic back pain, unspecif ied back pain laterality, unspecified chronicity M54.6 [facility] [address] [id number] [address] [place] [address] Nov, Anxiety F41.9 and Thoracic b ack pain, unspecified back pain laterality, unspecified chronicity M54.6 [facility] [address] [id number] [address] [place] [address] Nov, [facility] [address] [id number] [address] [place] [address] Nov, [facility] [address] [id number] [address] [place] [address] Nov, [facility] [address] [id number] [address] [place] [address] Oct, Thoracic back pain, unspecif ied back pain laterality, unspecified chronicity M54.6 [facility] [address] [id number] [address] [place] [address] Oct, Anxiety F41.9 and Thoracic b ack pain, unspecified back pain laterality, unspecified chronicity M54.6 [facility] [address] [id number] [address] [place] [address] Oct, Schizophrenia, unspecified t ype F20.9 and Acute kidney injury N17.9 [facility] [address] [id number] [address] [place] [address] Oct, [facility] [address] [id number] [address] [place] [address] Oct, [facility] [address] [id number] [address] [place] [address] Oct, Thoracic back pain, unspecif ied back pain laterality, unspecified chronicity M54.6 [facility] [address] [id number] [address] [place] [address] Oct, [facility] [address] [id number] [address] [place] [address] Oct, [facility] [address] [id number] [address] [place] [address] Sep, Anxiety F41.9 [facility] [address] [id number] [address] [place] [address] Sep, [facility] [address] [id number] [address] [place] [address] Sep, Thoracic back pain, unspecif ied back pain laterality, unspecified chronicity M54.6 [facility] [address] [id number] [address] [place] [address] Sep, [facility] [address] [id number] [address] [place] [address] Sep, [facility] [address] [id number] [address] [place] [address] Sep, [facility] [address] [id number] [address] [place] [address] Sep, [facility] [address] [id number] [address] [place] [address] Sep, [facility] [address] [facility] [id number] [address] [place] [address] Sep, [facility] [address] [facility] [id number] [address] [place] [address] Sep, Chronic pain G89.29 ; Chroni c kidney disease, stage III (moderate) N18.3 ; Hyperlipidemia E78.[address] [facility] [address] [facility] [id number] [address] [place] [address] Sep, Thoracic back pain, unspecif ied back pain laterality, unspecified chronicity M54.6 [facility] [address] [facility] [id number] [address] [place] [address] August, Anxiety F41.9 [facility] [address] [place] [id number] [address] [place] [address] August, Thoracic back pain, unspecif ied back pain laterality, unspecified chronicity M54.[address] 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 [address] [facility] [id number] [address] [place] [address] August, [facility] [address] [facility] [id number] [address] [place] [address] August, [facility] [address] [place] [id number] [address] [place] [address] August, Thoracic back pain, unspecif ied back pain laterality, unspecified chronicity M54.6 [facility] [address] [facility] [id number] [address] [place] [address] August, [facility] [address] [facility] [id number] [address] [place] [address] August, Anxiety F41.9 and Thoracic b ack pain, unspecified back pain laterality, unspecified chronicity M54.6 [facility] [address] [id number] [address] [place] [address] Jul, [facility] [address] [id number] [address] [place] [address] Jul, Thoracic back pain, unspecif ied back pain laterality, unspecified chronicity M54.6 [facility] [address] [id number] [address] [place] [address] Jun, Anxiety F41.9 and Thoracic b ack pain, unspecified back pain laterality, unspecified chronicity M54.6 [facility] [address] [id number] [address] [place] [address] Jun, Anxiety F41.9 and Thoracic b ack pain, unspecified back pain laterality, unspecified chronicity M54.6 [facility] [address] [id number] [address] [place] [address] Jun, Thoracic back pain, unspecif ied back pain laterality, unspecified chronicity M54.6 [facility] [address] [id number] [address] [place] [address] Jun, Anxiety F41.9 and Thoracic b ack pain, unspecified back pain laterality, unspecified chronicity M54.6 [facility] [address] [facility] [id number] [address] [place] [address] May, [facility] [address] [id number] [address] [place] [address] May, [facility] [address] [facility] [id number] [address] [place] [address] May, [facility] [address] [facility] [id number] [address] [place] [address] May, Anxiety F41.9 and Encounter for medication monitoring Z51.81 [facility] [address] [id number] [address] [place] [address] 05 May, 2018 Anxiety F41.9 and Thoracic b ack pain, unspecified back pain laterality, unspecified chronicity M54.6 [facility] [address] [id number] [address] [place] [address] Apr, Hyperlipidemia 272.4 [facility] [address] [id number] [address] [place] [address] Apr, Chronic pain G89.29 ; Anxiet y F41.9 ; Cervical radiculopathy M54.12 and Vision loss H54.7 [place] [address] [id number] [address] [place] [address] Apr, [place] [address] [id number] [address] [place] [address] Apr, Anxiety F41.9 and Thoracic b ack pain, unspecified back pain laterality, unspecified chronicity M54.6 [place] [address] [id number] [address] [place] [address] 17 Mar, 2018 [facility] [address] [id number] [address] [place] [address] 10 Mar, 2018 Anxiety F41.9 and Thoracic b ack pain, unspecified back pain laterality, unspecified chronicity M54.6 [facility] [address] [id number] [address] [place] [address] 14 Feb, 2018 Anxiety F41.9 and Thoracic b ack pain, unspecified back pain laterality, unspecified chronicity M54.6 [facility] [address] [id number] [address] [place] [address] 07 Feb, 2018 Thoracic back pain, unspecif ied back pain laterality, unspecified chronicity M54.6 [facility] [address] [id number] [address] [place] [address] Jan, [facility] [address] [id number] [address] [place] [address] 16 Jan, 2018 Anxiety F41.9 and Thoracic b ack pain, unspecified back pain laterality, unspecified chronicity M54.6 [facility] [address] [id number] [address] [place] [address] 19 Dec, 2017 Diarrhea of presumed infecti ous origin R19.7 [facility] [address] [id number] [address] [place] [address] 19 Dec, 2017 Diarrhea of presumed infecti ous origin R19.7 [facility] [address] [id number] [address] [place] [address] 18 Dec, 2017 Thoracic back pain, unspecif ied back pain laterality, unspecified chronicity M54.6 [facility] [address] [id number] [address] [place] [address] [address], 2017 [facility] [address] [id number] [address] [place] [address] 17 Dec, 2017 Anxiety F41.9 and Thoracic b ack pain, unspecified back pain laterality, unspecified chronicity M54.6 [facility] [address] [id number] [address] [place] [address] Dec, Diarrhea of presumed infecti ous origin R19.7 [facility] [address] [id number] [address] [place] [address] Dec, [facility] [address] [id number] [address] [place] [address] Dec, Anxiety F41.9 and Thoracic b ack pain, unspecified back pain laterality, unspecified chronicity M54.6 [facility] [address] [id number] [address] [place] [address] Dec, Anxiety F41.9 and Thoracic b ack pain, unspecified back pain laterality, unspecified chronicity M54.6 [facility] [address] [place] [id number] Dec, Diarrhea of presumed infectious origin R 19.7 ; Anxiety F41.9 ; Thoracic back pain, unspecified back pain laterality, unspecified chronicity M54.6 and HTN (hypertension) I10 [place] [address] [facility] [id number] [address] [place] [address] Dec, Anxiety F41.9 [facility] [facility] [address] [place] [id number] Dec, Anxiety F41.9 ; Diarrhea of presumed inf ectious origin R19.7 ; Generalized abdominal pain R10.84 and Localized edema R60.0 [place] [address] [address] [facility] [id number] [address] [place] [address] Nov, [facility] [employer] [address] [place] [id number] Nov, Anxiety F41.9 ; Urinary retention R33.9 ; Diarrhea of presumed infectious origin R19.7 ; Weakness R53.1 ; Acute kidney failure, unspecified N17.9 ; Chronic kidney disease, stage III (moderate) N18.3 and Thoracic back pain, unspecified back pain laterality, unspecified chronicity M54.6 [place] [address] [address] [facility] [id number] [address] [place] [address] Oct, Thoracic back pain, unspecif ied back pain laterality, unspecified chronicity M54.6 and Anxiety F41.9 [place] [address] [address] [facility] [id number] [address] [place] [address] Sep, Thoracic back pain, unspecif ied back pain laterality, unspecified chronicity M54.6 and Anxiety F41.9 [place] [address] [facility] [id number] [address] [place] [address] Sep, Thoracic back pain, unspecif ied back pain laterality, unspecified chronicity M54.6 ; Anxiety F41.9 and Encounter for medication monitoring Z51.81 [place] [address] [address] [facility] [id number] [address] [place] [address] August, [place] [address] [facility] [id number] [address] [place] [address] August, Thoracic back pain, unspecif ied back pain laterality, unspecified chronicity M54.[address] [facility] [address] [place] [id number] [address] [place] [address] August, Hyperlipidemia E78.5 and HTN (hypertension) I10 [facility] [address] [place] [id number] [address] [place] [address] August, [place] [address] [place] [id number] [address] [place] [address] August, Medicare welcome exam Z00.00 ; Chronic kidney failure N18.9 ; Anxiety F41.9 ; Chronic pain G89.29 ; Insomnia G47.00 ; Hyperlipidemia E78.5 ; HTN (hypertension) I10 and Thoracic back pain, unspecified back pain laterality, unspecified chronicity M54.6 [place] [address] [place] [id number] [address] [place] [address] Jul, [place] [address] [place] [id number] [address] [place] [address] Jul, [place] [address] [address] [place] [id number] [address] [place] [address] Jul, [place] [address] [place] [id number] [address] [place] [address] Jul, Anxiety F41.9 [place] [address] [place] [id number] [address] [place] [address] Jul, Thoracic back pain, unspecif ied back pain laterality, unspecified chronicity M54.6 and Anxiety F41.9 [place] [address] [address] [facility] [id number] [address] [place] [id number] Jun, Thoracic back pain, unspecif ied back pain laterality, unspecified chronicity M54.6 and Anxiety F41.9 [place] [address] [address] [place] [id number] [address] [place] [id number] May, Thoracic back pain, unspecif ied back pain laterality, unspecified chronicity M54.6 and Anxiety F41.9 [place] [address] [address] [facility] [id number] [address] [place] [id number] Apr, Thoracic back pain, unspecif ied back pain laterality, unspecified chronicity M54.6 and Anxiety F41.9 [place] [address] [address] [facility] [id number] [address] [place] [id number] Mar, [place] [address] [address] [facility] [id number] [address] [place] [id number] Mar, Thoracic back pain, unspecif ied back pain laterality, unspecified chronicity M54.6 and Anxiety F41.9 [place] [address] [address] [facility] [id number] [address] [place] [id number] Mar, Thoracic back pain, unspecif ied back pain laterality, unspecified chronicity M54.6 ; HTN (hypertension) I10 ; Hyperlipidemia E78.5 and Anxiety F41.9 [place] [address] [address] [place] [id number] [address] [place] [id number] Feb, Thoracic back pain, unspecif ied back pain laterality, unspecified chronicity M54.6 and Anxiety F41.9 [place] [address] [address] [place] [id number] [address] [place] [id number] Nov, [place] [address] [address] [place] [id number] [address] [place] [address] Oct, [place] [address] [address] [place] [id number] [address] [place] [address] Oct, Thoracic back pain, unspecif ied back pain laterality, unspecified chronicity M54.6 [place] [address] [address] [facility] [id number] [address] [place] [address] Oct, HTN (hypertension) I10 ; Con stipation K59.00 ; Hyperlipidemia E78.5 ; Thoracic back pain, unspecified back pain laterality, unspecified chronicity M54.6 ; Chronic pain G89.29 ; Anxiety F41.9 ; Chronic kidney failure N18.9 ; Environmental allergies Z91.09 ; Vitamin D deficiency E55.9 and Primary insomnia F51.01 [facility] [address] [id number] [address] [place] [address] Sep, Anxiety F41.9 [facility] [address] [id number] [address] [place] [address] Sep, [facility] [address] [id number] [address] [place] [address] August, Anxiety F41.9 [facility] [address] [id number] [address] [place] [address] August, [facility] [address] [id number] [address] [place] [address] Jul, Anxiety F41.9 [facility] [address] [id number] [address] [place] [address] Jul, [facility] [address] [id number] [address] [place] [address] Jun, Anxiety F41.9 [facility] [address] [id number] [address] [place] [address] Jun, [facility] [address] [id number] [address] [place] [address] May, [facility] [address] [id number] [address] [place] [address] May, [facility] [address] [id number] [address] [place] [address] May, [facility] [address] [id number] [address] [place] [address] Apr, [facility] [address] [id number] [address] [place] [address] Apr, [facility] [address] [facility] [id number] [address] [place] [address] Apr, Anxiety F41.9 [facility] [address] [facility] [id number] [address] [place] [address] Apr, Anxiety F41.9 [facility] [address] [place] [id number] [address] [place] [address] Apr, [facility] [address] [place] [id number] [address] [place] [address] Mar, HTN (hypertension) I10 ; Phillip mor R25.1 ; Hypercholesterolemia E78.0 ; Constipation K59.00 ; Chronic pain G89.29 ; Hyperlipidemia E78.5 ; Insomnia G47.00 ; Anxiety F41.9 and Thoracic back pain, unspecified back pain laterality, unspecified chronicity M54.6 [facility] [address] [place] [id number] [address] [place] [address] Mar, Tremor R25.1 ; HTN (hyperten stas) I10 ; Hypercholesterolemia E78.0 ; Constipation K59.00 ; Chronic pain G89.29 ; Hyperlipidemia E78.5 ; Insomnia G47.00 ; Anxiety F41.9 and Thoracic back pain, unspecified back pain laterality, unspecified chronicity M54.6 [facility] [address] [place] [id number] [address] [place] [address] Mar, [facility] [address] [place] [id number] [address] [place] [address] Mar, [facility] [address] [place] [id number] [address] [place] [address] Feb, [facility] [address] [place] [id number] [address] [place] [address] Jan, [facility] [address] [place] [id number] [address] [place] [address] Jan, [facility] [address] [place] [id number] [address] [place] [address] Dec, [facility] [address] [place] [id number] [address] [place] [address] Nov, [facility] [address] [id number] [address] [place] [address] Nov, [facility] [address] [facility] [id number] [address] [place] [address] Oct, Anxiety F41.9 [facility] [address] [facility] [id number] [address] [place] [address] Oct, Chronic pain G89.29 [facility] [address] [facility] [id number] [address] [place] [address] Sep, [facility] [address] [facility] [id number] [address] [place] [address] Sep, [facility] [address] [facility] [id number] [address] [place] [address] Sep, [facility] [address] [facility] [id number] [address] [place] [address] Sep, [facility] [address] [facility] [id number] [address] [place] [address] Sep, Chronic pain syndrome G89.4 [facility] [address] [facility] [id number] [address] [place] [address] Sep, HTN (hypertension) I10 ; Chr onic pain G89.29 ; Hypercholesterolemia E78.0 ; Chronic kidney failure N18.9 ; Constipation, unspecified constipation type K59.00 ; Anxiety F41.9 and Thoracic back pain, unspecified back pain laterality, unspecified chronicity M54.6 [facility] [address] [facility] [id number] [address] [place] [address] August, Chronic pain syndrome G89.4 [facility] [address] [facility] [id number] [address] [place] [address] August, Chronic pain syndrome G89.4 [facility] [address] [facility] [id number] [address] [place] [address] Jul, Anxiety disorder, unspecifie d F41.9 and Chronic pain syndrome G89.4 [facility] [address] [facility] [id number] [address] [place] [address] Jul, Insomnia, unspecified G47.00 and Chronic pain syndrome G89.4 [facility] [address] [facility] [id number] [address] [place] [address] Jul, Allergic rhinitis J30.9 [facility] [address] [facility] [id number] [address] [place] [address] Jul, Constipation, unspecified K5 9.00 [facility] [address] [facility] [id number] [address] [place] [address] Jul, [facility] [address] [facility] [id number] [address] [place] [address] Jun, [facility] [address] [facility] [id number] [address] [place] [address] Jun, [facility] [address] [facility] [id number] [address] [place] [address] Jun, [facility] [address] [facility] [id number] [address] [place] [address] Jun, [facility] [address] [facility] [id number] [address] [place] [address] Jun, [facility] [address] [place] [id number] [address] [place] [address] Jun, [facility] [address] [facility] [id number] [address] [place] [address] May, [facility] [address] [facility] [id number] [address] [place] [address] May, [facility] [address] [place] [id number] [address] [place] [address] May, Anxiety F41.9 ; Insomnia G47 .00 ; Hyperlipidemia E78.5 ; Chronic pain G89.29 ; HTN (hypertension) I10 ; Environmental allergies V15.[address] [facility] [address] [facility] [id number] [address] [place] [address] Apr, [facility] [address] [facility] [id number] [address] [place] [address] Apr, [facility] [address] [facility] [id number] [address] [place] [address] Apr, [facility] [address] [facility] [id number] [address] [place] [address] Mar, [facility] [address] [facility] [id number] [address] [place] [address] Mar, [facility] [address] [place] [id number] [place] [address] Mar, [facility] [address] [place] [id number] [address] [place] [address] Feb, [facility] [address] [place] [id number] [place] [address] Feb, [facility] [address] [place] [id number] [address] [place] [address] Feb, [facility] [address] [address] Jan, HTN (hypertension) I10 ; Con stipation K59.00 ; Chronic pain G89.29 ; Hyperlipidemia E78.5 ; Hypercholesterolemia E78.0 ; Insomnia G47.[address] [facility] [address] [place] [id number] [address] [place] [address] Jan, [facility] [address] [facility] [id number] [address] [place] [address] Dec, [facility] [address] [place] [id number] [place] [address] Nov, [facility] [address] [place] [id number] [address] [place] [address] Oct, Chronic kidney disease, unsp ecified 585.9 ; Chronic pain syndrome 338.4 ; Hyperlipidemia 272.4 and Essential hypertension 401.9 [facility] [address] [facility] [id number] [address] [place] [address] Oct, Chronic kidney disease 585.9 [facility] [address] [facility] [id number] [address] [place] [address] 15 Oct, 2014 [facility] [address] [facility] [id number] [address] [place] [address] Oct, Chronic kidney disease, unsp ecified 585.9 ; Hypercalcemia 275.42 ; Hyperlipidemia 272.4 ; Essential hypertension 401.9 ; Chronic pain syndrome 338.4 ; Insomnia 780.52 ; Constipation 564.00 ; Environmental allergies V15.[address] [facility] [address] [facility] [id number] [address] [place] [address] 15 Oct, 2014 Chronic kidney disease 585.9 [facility] [address] [facility] [id number] [address] [place] [address] Oct, [facility] [address] [facility] [id number] [address] [place] [address] 14 Oct, 2014 Chronic kidney disease 585.[address] [facility] [address] [facility] [id number] [address] [place] [address] Oct, [facility] [address] [facility] [id number] [address] [place] [address] Oct, [facility] [address] [facility] [id number] [address] [place] [address] [address], [address] [facility] [address] [facility] [id number] [address] [place] [address] Sep, [facility] [address] [facility] [id number] [address] [place] [address] Sep, Chronic kidney disease 585.[address] [facility] [address] [facility] [id number] [address] [place] [address] Sep, [facility] [address] [id number] [address] [place] [address], [place] [address] August, [facility] [address] [id number] [address] [place] [address], [place] [address] August, [facility] [address] [id number] [address] [place] [address], [place] [address] Jul, [facility] [address] [id number] [address] [place] [address], [place] [address] Jul, [facility] [address] [id number] [address] [place] [address], [place] [address] Jun, [facility] [address] [id number] [address] [place] [address], [place] [address] Jun, [facility] [address] [id number] [address] [place] [address], [place] [address] Jun, [facility] [address] [id number] [address] [place] [address], [place] [address] Jun, [facility] [address] [id number] [address] [place] [address], [place] [address] Jun, [facility] [address] [id number] [address] [place] [address], [place] [address] Jun, [facility] [address] [id number] [address] [place] [address], [place] [address] Jun, [facility] [address] [id number] [address] [place] [address], [place] [address] Jun, [facility] [address] [id number] [address] [place] [address], [place] [address] May, [facility] [address] [id number] [address] [place] [address], [place] [address] May, [facility] [address] [id number] [address] [place] [address], [place] [address] May, [facility] [address] [id number] [address] [place] [address], [place] [address] May, [facility] [address] [id number] [address] [place] [address], [place] [address] Apr, [facility] [address] [id number] [address] [place] [address], [place] [address] Apr, [facility] [address] [id number] [address] [place] [address], [place] [address] Apr, [facility] [address] [id number] [address] [place] [address], [place] [address] Apr, [facility] [address] [id number] [address] [place] [address], [place] [address] Apr, [facility] [address] [id number] [address] [place] [address], [place] [address] Apr, [facility] [address] [id number] [address] [place] [address], [place] [address] Apr, [facility] [address] [id number] [address] [place] [address], [place] [address] Apr, [facility] [address] [id number] [address] [place] [address], [place] [address] Apr, [facility] [address] [id number] [address] [place] [address], [place] [address] Apr, [facility] [address] [id number] [address] [place] [address], [place] [address] Apr, [facility] [address] [id number] [address] [place] [address], [place] [address] Mar, [facility] [address] [id number] [address] [place] [address], [place] [address] Mar, [facility] [address] [id number] [address] [place] [address], [place] [address] Feb, [facility] [address] [id number] [address] [place] [address], [place] [address] Feb, [facility] [address] [id number] [address] [place] [address], [place] [address] Feb, [facility] [address] [id number] [address] [place] [address], [place] [address] Feb, [facility] [address] [id number] [address] [place] [address], [place] [address] Feb, [facility] [address] [id number] [address] [place] [address], [place] [address] Feb, [facility] [address] [id number] [address] [place] [address], [place] [address] Feb, [facility] [address] [id number] [address] [place] [address], [place] [address] Feb, [facility] [address] [id number] [address] [place] [address], [place] [address] Feb, [facility] [address] [id number] [address] [place] [address], [place] [address] Feb, [facility] [address] [id number] [address] [place] [address], [place] [address] Jan, [facility] [address] [id number] [address] [place] [address], [place] [address] Jan, [facility] [address] [id number] [address] [place] [address], [place] [address] Jan, [facility] [address] [id number] [address] [place] [address], [place] [address] Jan, [facility] [address] [id number] [address] [place] [address], [place] [address] Jan, [facility] [address] [id number] [address] [place] [address], [place] [address] Jan, [facility] [address] [id number] [address] [place] [address], [place] [address] Jan, [facility] [address] [id number] [address] [place] [address], [place] [address] Jan, [facility] [address] [id number] [address] [place] [address], [place] [address] 16 Jan, 2014 [facility] [address] [id number] [address] [place] [address], [place] [address] Jan, [facility] [address] [id number] [address] [place] [address], [place] [address] Jan, [facility] [address] [id number] [address] [place] [address], [place] [address] Dec, 2013 [facility] [address] [id number] [address] [place] [address], [place] [address] 26 Dec, 2013 [facility] [address] [id number] [address] [place] [address], [place] [address] 19 Dec, 2013 [facility] [address] [id number] [address] [place] [address], [place] [address] Dec, 2013 [facility] [address] [id number] [address] [place] [address], [place] [address] 18 Dec, 2013 [facility] [address] [id number] [address] [place] [address], [place] [address] 18 Dec, 2013 [facility] [address] [id number] [address] [place] [address], [place] [address] Dec, [facility] [address] [id number] [address] [place] [address], [place] [address] Dec, [facility] [address] [id number] [address] [place] [address], [place] [address] Nov, [facility] [address] [id number] [address] [place] [address], [place] [address] Nov, [facility] [address] [id number] [address] [place] [address], [place] [address] Nov, [facility] [address] [id number] [address] [place] [address], [place] [address] Nov, [facility] [address] [id number] [address] [place] [address], [place] [address] Nov, [facility] [address] [id number] [address] [place] [address], [place] [address] Nov, [facility] [address] [id number] [address] [place] [address], [place] [address] Nov, [facility] [address] [id number] [address] [place] [address], [place] [address] Nov, [facility] [address] [id number] [address] [place] [address], [place] [address] Oct, [facility] [address] [id number] [address] [place] [address], [place] [address] Oct, [facility] [address] [id number] [address] [place] [address], [place] [address] Oct, [facility] [address] [id number] [address] [place] [address], [place] [address] Oct, [facility] [address] [id number] [address] [place] [address], [place] [address] Sep, [facility] [address] [id number] [address] [place] [address], [place] [address] Sep, [facility] [address] [id number] [address] [place] [address], [place] [address] Sep, [facility] [address] [id number] [address] [place] [address], [place] [address] Sep, [facility] [address] [id number] [address] [place] [address] Sep, [facility] [address] [id number] [address] [place] [address], [place] [address] Sep, [facility] [address] [id number] [address] [place] [address], [place] [address] Sep, [facility] [address] [id number] [address] [place] [address], [place] [address] Sep, [facility] [address] [id number] [address] [place] [address], [place] [address] August, [facility] [address] [id number] [address] [place] [address], [place] [address] August, [facility] [address] [id number] [address] [place] [address], [place] [address] August, [facility] [address] [id number] [address] [place] [address], [place] [address] August, [facility] [address] [id number] [address] [place] [address], [place] [address] August, [facility] [address] [id number] [address] [place] [address], [place] [address] August, [facility] [address] [id number] [address] [place] [address], [place] [address] August, [facility] [address] [id number] [address] [place] [address], [place] [address] August, [facility] [address] [id number] [address] [place] [address], [place] [address] August, [facility] [address] [id number] [address] [place] [address], [place] [address] August, [facility] [address] [id number] [address] [place] [address], [place] [address] Jul, [facility] [address] [id number] [address] [place] [address], [place] [address] Jul, [facility] [address] [id number] [address] [place] [address], [place] [address] Jul, [facility] [address] [id number] [address] [place] [address], [place] [address] Jul, [facility] [address] [id number] [address] [place] [address], [place] [address] Jul, [facility] [address] [id number] [address] [place] [address], [place] [address] Jul, [facility] [address] [id number] [facility] [address] Jul, [facility] [address] [id number] [address] [place] [address], [place] [address] Jul, [facility] [address] [id number] [address] [place] [address], [place] [address] Jun, [facility] [address] [id number] [address] [place] [address], [place] [address] Jun, [facility] [address] [id number] [address] [place] [address], [place] [address] Jun, [facility] [address] [id number] [address] [place] [address], [place] [address] Jun, [facility] [address] [id number] [address] [place] [address], [place] [address] Jun, [facility] [address] [id number] [address] [place] [address], [place] [address] Jun, [facility] [address] [id number] [address] [place] [address], [place] [address] May, [facility] [address] [id number] [address] [place] [address], [place] [address] May, [facility] [address] [id number] [address] [place] [address], [place] [address] May, [facility] [address] [id number] [address] [place] [address], [place] [address] May, [facility] [address] [id number] [address] [place] [address], [place] [address] May, [facility] [address] [id number] [address] [place] [address], [place] [address] May, [facility] [address] [id number] [address] [place] [address], [place] [address] May, [facility] [address] [id number] [address] [place] [address], [place] [address] Apr, [facility] [address] [id number] [address] [place] [address], [place] [address] Apr, [facility] [address] [id number] [address] [place] [address], [place] [address] Apr, [facility] [address] [id number] [address] [place] [address], [place] [address] Apr, [facility] [address] [id number] [address] [place] [address], [place] [address] Apr, [facility] [address] [id number] [address] [place] [address], [place] [address] Apr, [facility] [address] [id number] [address] [place] [address], [place] [address] Mar, [facility] [address] [id number] [address] [place] [address], [place] [address] Mar, [facility] [address] [id number] [address] [place] [address], [place] [address] Mar, [facility] [address] [id number] [address] [place] [address], [place] [address] Mar, [facility] [address] [id number] [address] [place] [address], [place] [address] Mar, [facility] [address] [id number] [address] [place] [address], [place] [address] 19 Mar, 2013 [facility] [address] [id number] [address] [place] [address], [place] [address] 16 Mar, 2013 [facility] [address] [id number] [address] [place] [address], [place] [address] 16 Mar, 2013 [facility] [address] [id number] [address] [place] [address], [place] [address] 12 Mar, 2013 [facility] [address] [id number] [address] [place] [address], [place] [address] Mar, [facility] [address] [id number] [address] [place] [address], [place] [address] Feb, [facility] [address] [id number] [address] [place] [address], [place] [address] Feb, [facility] [address] [id number] [address] [place] [address], [place] [address] Feb, [facility] [address] [id number] [address] [place] [address], [place] [address] Feb, [facility] [address] [id number] [address] [place] [address], [place] [address] Feb, [facility] [address] [id number] [address] [place] [address], [place] [address] Feb, [facility] [address] [id number] [address] [place] [address], [place] [address] Feb, [facility] [address] [id number] [address] [place] [address], [place] [address] Feb, [facility] [address] [id number] [address] [place] [address], [place] [address] Feb, [facility] [address] [id number] [address] [place] [address], [place] [address] Feb, [facility] [address] [id number] [address] [place] [address], [place] [address] Jan, [facility] [address] [id number] [address] [place] [address], [place] [address] Jan, [facility] [address] [id number] [address] [place] [address], [place] [address] Jan, [facility] [address] [id number] [address] [place] [address], [place] [address] Jan, [facility] [address] [id number] [address] [place] [address], [place] [address] Jan, [facility] [address] [id number] [address] [place] [address] [place] [address] Jan, [facility] [address] [id number] [address] [place] [address], [place] [address] 17 Jan, 2013 [facility] [address] [id number] [address] [place] [address], [place] [address] Jan, [facility] [address] [id number] [address] [place] [address], [place] [address] Jan, [facility] [address] [id number] [address] [place] [address], [place] [address] Dec, [facility] [address] [id number] [address] [place] [address], [place] [address] Dec, [facility] [address] [id number] [address] [place] [address], [place] [address] Dec, [facility] [address] [id number] [address] [place] [address], [place] [address] Dec, [facility] [address] [id number] [address] [place] [address], [place] [address] Nov, [facility] [address] [id number] [address] [place] [address], [place] [address] Nov, [facility] [address] [id number] [address] [place] [address], [place] [address] Nov, [facility] [address] [id number] [address] [place] [address], [place] [address] Nov, [facility] [address] [id number] [address] [place] [address], [place] [address] Nov, [facility] [address] [id number] [address] [place] [address], [place] [address] Nov, [facility] [address] [id number] [address] [place] [address], [place] [address] Oct, [facility] [address] [id number] [address] [place] [address], [place] [address] Oct, [facility] [address] [id number] [address] [place] [address], [place] [address] 12 Oct, 2012 [facility] [address] [id number] [address] [place] [address], [place] [address] 08 Oct, 2012 [facility] [address] [id number] [address] [place] [address], [place] [address] 27 Sep, 2012 [facility] [address] [id number] [address] [place] [address], [place] [address] Sep, [facility] [address] [id number] [address] [place] [address], [place] [address] 17 Sep, 2012 [facility] [address] [id number] [address] [place] [address], [place] [address] 14 Sep, 2012 [facility] [address] [id number] [address] [place] [address], [place] [address] Sep, [facility] [address] [id number] [address] [place] [address], [place] [address] August, [facility] [address] [id number] [address] [place] [address], [place] [address] 2012 [facility] [address] [id number] [address] [place] [address], [place] [address] Jul, [facility] [address] [id number] [address] [place] [address], [place] [address] Jul, [facility] [address] [id number] [address] [place] [address], [place] [address] 15 Jul, 2012 [facility] [address] [id number] [address] [place] [address], [place] [address] 09 Jul, 2012 [facility] [address] [id number] [address] [place] [address], [place] [address] 08 Jul, 2012 [facility] [address] [id number] [address] [place] [address], [place] [address] 26 Jun, 2012 [facility] [address] [id number] [address] [place] [address], [place] [address] Jun, [facility] [address] [id number] [address] [place] [address], [place] [address] Jun, [facility] [address] [id number] [address] [place] [address], [place] [address] Jun, [facility] [address] [id number] [address] [place] [address], [place] [address] Jun, [facility] [address] [id number] [address] [place] [address], [place] [address] May, [facility] [address] [id number] [address] [place] [address], [place] [address] May, [facility] [address] [id number] [address] [place] [address], [place] [address] May, [facility] [address] [id number] [address] [place] [address], [place] [address] May, [facility] [address] [id number] [address] [place] [address], [place] [address] May, [facility] [address] [id number] [address] [place] [address], [place] [address] 14 May, 2012 [facility] [address] [id number] [address] [place] [address], [place] [address] May, [facility] [address] [id number] [address] [place] [address], [place] [address] 08 May, 2012 [facility] [address] [id number] [address] [place] [address], [place] [address] May, [facility] [address] [id number] [address] [place] [address], [place] [address] Apr, [facility] [address] [id number] [address] [place] [address], [place] [address] Apr, [facility] [address] [id number] [address] [place] [address], [place] [address] Apr, [facility] [address] [id number] [address] [place] [address], [place] [address] 14 Apr, 2012 [facility] [address] [id number] [address] [place] [address], [place] [address] Apr, [facility] [address] [id number] [address] [place] [address], [place] [address] Mar, [facility] [address] [id number] [address] [place] [address], [place] [address] Mar, [facility] [address] [id number] [address] [place] [address], [place] [address] Mar, [facility] [address] [id number] [address] [place] [address], [place] [address] Mar, [facility] [address] [id number] [address] [place] [address], [place] [address] Mar, [facility] [address] [id number] [address] [place] [address], [place] [address] Mar, [facility] [address] [id number] [address] [place] [address], [place] [address] Mar, [facility] [address] [id number] [address] [place] [address], [place] [address] Mar, [facility] [address] [id number] [address] [place] [address], [place] [address] Mar, [facility] [address] [id number] [address] [place] [address], [place] [address] Mar, [facility] [address] [id number] [address] [place] [address], [place] [address] Feb, [facility] [address] [id number] [address] [place] [address], [place] [address] Feb, [facility] [address] [id number] [address] [place] [address], [place] [address] 29 Feb, 2012 [facility] [address] [id number] [address] [place] [address], [place] [address] Feb, [facility] [address] [id number] [address] [place] [address], [place] [address] Feb, [facility] [address] [id number] [address] [place] [address], [place] [address] Feb, [facility] [address] [id number] [address] [place] [address], [place] [address] Feb, [facility] [address] [id number] [address] [place] [address], [place] [address] Feb, [facility] [address] [id number] [address] [place] [address], [place] [address] 16 Feb, 2012 [facility] [address] [id number] [address] [place] [address], [place] [address] 16 Feb, 2012 [facility] [address] [id number] [address] [place] [address], [place] [address] Feb, [facility] [address] [id number] [address] [place] [address], [place] [address] Feb, [facility] [address] [id number] [address] [place] [address], [place] [address] Feb, [facility] [address] [id number] [address] [place] [address], [place] [address] Feb, [facility] [address] [id number] [address] [place] [address] Feb, [facility] [address] [id number] [address] [place] [address] 08 Feb, 2012 [facility] [address] [id number] [address] [place] [address], [place] [address] Feb, [facility] [address] [id number] [address] [place] [address] Feb, [facility] [address] [id number] [address] [place] [address], [place] [address] 31 Jan, 2012 [facility] [address] [id number] [address] [place] [address], [place] [address] Jan, [facility] [address] [id number] [address] [place] [address], [place] [address] Jan, [facility] [address] [id number] [address] [place] [address], [place] [address] Jan, [facility] [address] [id number] [address] [place] [address], [place] [address] Jan, [facility] [address] [id number] [address] [place] [address], [place] [address] Jan, [facility] [address] [id number] [address] [place] [address], [place] [address] Jan, [facility] [address] [id number] [address] [place] [address], [place] [address] Jan, [facility] [address] [id number] [address] [place] [address], [place] [address] Jan, [facility] [address] [id number] [address] [place] [address], [place] [address] Jan, [facility] [address] [id number] [address] [place] [address], [place] [address] 24 Dec, 2011 [facility] [address] [id number] [address] [place] [address], [place] [address] 18 Dec, 2011 [facility] [address] [id number] [address] [place] [address], [place] [address] Dec, [facility] [address] [id number] [address] [place] [address], [place] [address] Dec, [facility] [address] [id number] [address] [place] [address], [place] [address] Nov, [facility] [address] [id number] [address] [place] [address], [place] [address] Nov, [facility] [address] [id number] [address] [place] [address], [place] [address] Nov, [facility] [address] [id number] [address] [place] [address], [place] [address] Nov, [facility] [address] [id number] [address] [place] [address], [place] [address] Nov, [facility] [address] [id number] [address] [place] [address], [place] [address] Nov, [facility] [address] [id number] [address] [place] [address], [place] [address] Oct, [facility] [address] [id number] [address] [place] [address], [place] [address] Oct, [facility] [address] [id number] [address] [place] [address], [place] [address] Oct, [facility] [address] [id number] [address] [place] [address], [place] [address] Oct, [facility] [address] [id number] [address] [place] [address], [place] [address] Oct, [facility] [address] [id number] [address] [place] [address], [place] [address] Sep, [facility] [address] [id number] [address] [place] [address], [place] [address] Sep, [facility] [address] [id number] [address] [place] [address], [place] [address] Sep, [facility] [address] [id number] [address] [place] [address], [place] [address] Sep, [facility] [address] [id number] [address] [place] [address], [place] [address] Sep, [facility] [address] [id number] [address] [place] [address], [place] [address] August, [facility] [address] [id number] [address] [place] [address], [place] [address] August, [facility] [address] [id number] [address] [place] [address], [place] [address] August, [facility] [address] [id number] [address] [place] [address], [place] [address] August, [facility] [address] [id number] [address] [place] [address], [place] [address] 27 Jul, 2011 [facility] [address] [id number] [address] [place] [address], [place] [address] 24 Jul, 2011 [facility] [address] [id number] [address] [place] [address], [place] [address] Jul, [facility] [address] [id number] [address] [place] [address], [place] [address] Jul, [facility] [address] [id number] [address] [place] [address], [place] [address] Jul, [facility] [address] [id number] [address] [place] [address], [place] [address] Jul, [facility] [address] [id number] [address] [place] [address], [place] [address] Jul, [facility] [address] [id number] [address] [place] [address], [place] [address] 10 Jul, 2011 [facility] [address] [id number] [address] [place] [address], [place] [address] 09 Jul, 2011 [facility] [address] [id number] [address] [place] [address], [place] [address] 07 Jul, 2011 [facility] [address] [id number] [address] [place] [address], [place] [address] 05 Jul, 2011 [facility] [address] [id number] [address] [place] [address], [place] [address] 03 Jul, 2011 [facility] [address] [id number] [address] [place] [address], [place] [address] 02 Jul, 2011 [facility] [address] [id number] [address] [place] [address], [place] [address] Jul, [facility] [address] [id number] [address] [place] [address], [place] [address] 28 Jun, 2011 [facility] [address] [id number] [address] [place] [address], [place] [address] 27 Jun, 2011 [facility] [address] [id number] [address] [place] [address], [place] [address] 20 Jun, 2011 [facility] [address] [id number] [address] [place] [address], [place] [address] 16 Jun, 2011 [facility] [address] [id number] [address] [place] [address], [place] [address] 27 May, 2011 [facility] [address] [id number] [address] [place] [address], [place] [address] 16 May, 2011 [facility] [address] [id number] [address] [place] [address], [place] [address] 09 May, 2011 [facility] [address] [id number] [address] [place] [address], [place] [address] Apr, [facility] [address] [id number] [address] [place] [address], [place] [address] 18 Apr, 2011 [facility] [address] [id number] [address] [place] [address], [place] [address] Apr, [facility] [address] [id number] [address] [place] [address], [place] [address] Apr, [facility] [address] [id number] [address] [place] [address], [place] [address] 09 Apr, 2011 [facility] [address] [id number] [address] [place] [address], [place] [address] Mar, [facility] [address] [id number] [address] [place] [address], [place] [address] Mar, [facility] [address] [id number] [address] [place] [address], [place] [address] Mar, [facility] [address] [id number] [address] [place] [address], [place] [address] 20 Mar, 2011 [facility] [address] [id number] [address] [place] [address], [place] [address] 16 Mar, 2011 [facility] [address] [id number] [address] [place] [address], [place] [address] Mar, [facility] [address] [id number] [address] [place] [address], [place] [address] 05 Mar, 2011 [facility] [address] [id number] [address] [place] [address], [place] [address] 29 Feb, 2011 [facility] [address] [id number] [address] [place] [address], [place] [address] Feb, [facility] [address] [id number] [address] [place] [address], [place] [address] Feb, [facility] [address] [id number] [address] [place] [address], [place] [address] Feb, [facility] [address] [id number] [address] [place] [id number] 16 Feb, 2011 [facility] [address] [id number] [address] [place] [address], [place] [address] 14 Feb, 2011 [facility] [address] [id number] [address] [place] [id number] Feb, [facility] [address] [id number] [address] [place] [id number] 31 Jan, 2011 [facility] [address] [id number] [address] [place] [id number] 31 Jan, 2011 [facility] [address] [id number] [address] [place] [address], [place] [address] 31 Jan, 2011 [facility] [address] [id number] [address] [place] [id number] 18 Jan, 2011 [facility] [address] [id number] [address] [place] [id number] 17 Jan, 2011 [facility] [address] [id number] [address] [place] [address], [place] [address] 17 Jan, 2011 [facility] [address] [id number] [address] [place] [address], [place] [address] 17 Jun, 2010 [facility] [address] [id number] [address] [place] [address], [place] [address] 30 Mar, 2010 [facility] [address] [id number] [address] [place] [address], [place] [address] 20 Mar, 2010 [facility] [address] [id number] [address] [place], [place] [address], [place] [address] 14 Mar, 2010 [facility] [address] [id number] [address] [place] [address], [place] [address] 14 Mar, 2010 [facility] [address] [id number] [address] [place] [address], [place] [address] 13 Mar, 2010 [facility] [address] [id number] [address] [place] [address], [place] [address] 07 Mar, 2010 [facility] [address] [id number] [address] [place] [address], [place] [address] 02 Mar, 2010 [facility] [address] [id number] [address] [place] [address], [place] [address] 01 Mar, 2010 [facility] [address] [id number] [address] [place] [address], [place] [address] 30 Feb, 2010 [facility] [address] [id number] [address] [place] [address], [place] [address] 29 Feb, 2010 [facility] [address] [id number] [address] [place] [address], [place] [address] 17 Feb, 2010 [facility] [address] [id number] [address] [place] [address], [place] [address] 17 Feb, 2010 [facility] [address] [id number] [address] [place] [address], [place] [address] 16 Feb, 2010 [facility] [address] [id number] [address] [place] [address], [place] [address] Feb, [facility] [address] [id number] [address] [place] [address], [place] [address] Feb, [facility] [address] [id number] [address] [place] [address], [place] [address] Feb, [facility] [address] [id number] [address] [place] [address], [place] [address] Jan, [facility] [address] [id number] [address] [place] [address], [place] [address] Jan, [facility] [address] [id number] [address] [place] [address], [place] [address] Jan, [facility] [address] [id number] [address] [place] [address], [place] [address] Jan, [facility] [address] [id number] [address] [place] [address], [place] [address] 29 Mar, 2009 [facility] [address] [id number] [address] [place] [address], [place] [address] 22 Mar, 2009 [facility] [address] [id number] [address] [place] [address], [place] [address] Mar, [facility] [address] [id number] [address] [place] [id number] 19 Mar, 2009 [facility] [address] [id number] [address] [place] [address], [place] [address] 14 Mar, 2009 [facility] [address] [id number] [address] [place] [id number] 10 Mar, 2009 [facility] [address] [id number] [address] [place] [address], [place] [address] 18 Feb, 2009 [facility] [address] [id number] [address] [place] [address], [place] [address] 18 Feb, 2009 [facility] [address] [id number] [address] [place] [id number] 13 Jan, 2009 [facility] [address] [id number] [address] [place] [id number] Sep, [facility] [address] [facility] [id number] [address] [address] May, IMMUNIZATIONS No Known Immunizations SOCIAL HISTORY [...] Surgical History Left ear surgery Hospitalization History [facility] in [place]- Spontane ous Pneumothorax Hospitalization History [facility]- Colon resection Hospital[facility] History [facility] - diarrhea/ couldnt urin ate nov 2017 Hospitalization History pain /hip to foot right side 10/16/19 19
--- OUTSIDE RECORDS SUMMARY | 2019-08-28 08:47 | XMS REPORT ---
Author Author Dixon Lundberg Doctor Organization [facility] Address Unknown Phone Unavailable Care Team Providers Care Machinery Cleaner Name Role Phone Migration, Doctor Unavailable Unavailable PROBLEMS Type Condition ICD9-CM Code ASI17-PM Code Onset Dates Condition S tatus SNOMED Code Problem Insomnia G47.00 Active 929445780 Problem Anxiety F41.9 Active 02136985 Problem HTN (hypertension) I10 Active 3 6163784 Problem Chronic pain G89.29 Active 9980833 1 Problem Constipation K59.00 Active 4251030 8 Problem Thoracic back pain, unspecif ied back pain laterality, unspecified chronicity M54.6 Active 905606198 Problem Hyperlipidemia E78.5 Active 82629 004 Problem Vitamin D deficiency E55.9 Active 86060708 Problem Chronic kidney disease, stage III (moderate) N18.3 Active 115681868 Problem Vision loss H54.7 Active 72232590 1 Problem Age-related cataract of both eyes, unspecified age-related cataract type H25.9 Active 58060067 Problem Primary insomnia F51.01 Active 397 2004 Problem Psychophysiologic insomnia F51.04 Act saúl 945386259 Problem Environmental allergies Z91.09 Active 796796786 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 68507831 Problem Schizophrenia, unspecified type F20.9 Active 33044236 Problem Psychophysiological insomnia F51.04 A ctive 944399303 Problem Psychophysiological insomnia F51.04 A ctive [id number] ALLERGIES No Information ENCOUNTERS Encounter Location Date Diagnosis [facility] [address] [facility] [id number] [address] [place] [id number] Jul, [facility] [address] [facility] [id number] [address] [place] [id number] Jul, [facility] [address] [facility] [id number] [address] [place] [id number] Jul, [facility] [address] [facility] [id number] [address] [place] [id number] Jul, [facility] [address] [id number] [address] [place] [address] Jul, [facility] [address] [id number] [address] [place] [address] Jul, Thoracic back pain, unspecif ied back pain laterality, unspecified chronicity M54.6 [facility] [address] [id number] [address] [place] [id number] 02 Jul, 2019 Anxiety F41.9 and Thoracic b ack pain, unspecified back pain laterality, unspecified chronicity M54.6 [facility] [address] [id number] [address] [place] [address] Jun, [facility] [address] [id number] [address] [place] [address] Jun, Thoracic back pain, unspecif ied back pain laterality, unspecified chronicity M54.6 [facility] [address] [id number] [address] [place] [address] Jun, [facility] [address] [id number] [address] [place] [id number] Jun, Anxiety F41.9 and Thoracic b ack pain, unspecified back pain laterality, unspecified chronicity M54.6 [facility] [address] [facility] [id number] [address] [place] [address] Jun, [facility] [address] [facility] [id number] [address] [place] [address] May, [facility] [address] [id number] [address] [place] [id number] May, Psychophysiologic insomnia F 51.04 [facility] [address] [facility] [id number] [address] [place] [id number] 13 May, 2019 Other constipation K59.09 [facility] [address] [facility] [id number] [address] [place] [address] May, Thoracic back pain, unspecif ied back pain laterality, unspecified chronicity M54.6 [facility] [address] [id number] [address] [place] [id number] 06 May, 2019 Anxiety F41.9 and Thoracic b ack pain, unspecified back pain laterality, unspecified chronicity M54.6 [facility] [address] [id number] [address] [place] [id number] 06 May, 2019 [facility] [address] [id number] [address] [place] [phone] Apr, [facility] [address] [id number] [address] [place] [address] Apr, [facility] [address] [id number] [address] [place] [address] Apr, Psychophysiological insomnia F51.04 [facility] [address] [id number] [address] [place] [address] Apr, Thoracic back pain, unspecif ied back pain laterality, unspecified chronicity M54.6 [facility] [address] [id number] [address] [place] [id number] 10 Apr, 2019 Thoracic back pain, unspecif ied back pain laterality, unspecified chronicity M54.6 [facility] [address] [id number] [address] [place] [address] Apr, Anxiety F41.9 [facility] [address] [id number] [address] [place] [address] Apr, Psychophysiological insomnia F51.04 [facility] [address] [facility] [id number] [address] [place] [id number] Mar, Encounter for Medicare annua l wellness exam [...] both eyes, unspecified age-related cataract type H25.9 [facility] [address] [id number] [address] [place] [id number] Mar, Thoracic back pain, unspecif ied back pain laterality, unspecified chronicity M54.6 [facility] [address] [id number] [address] [place] [address] Mar, Psychophysiological insomnia F51.04 [facility] [address] [id number] [address] [place] [address] Mar, Thoracic back pain, unspecif ied back pain laterality, unspecified chronicity M54.6 and Anxiety F41.9 [facility] [address] [id number] [address] [place] [address] Mar, Psychophysiological insomnia F51.04 [facility] [address] [id number] [address] [place] [address] Mar, [facility] [address] [id number] [address] [place] [address] Mar, Psychophysiological insomnia F51.04 [facility] [address] [id number] [address] [place] [address] Mar, [facility] [address] [id number] [address] [place] [address] Feb, [facility] [address] [id number] [address] [place] [id number] Feb, Thoracic back pain, unspecif ied back pain laterality, unspecified chronicity M54.6 [facility] [address] [id number] [address] [place] [address] 14 Feb, 2019 Anxiety F41.9 and Thoracic b ack pain, unspecified back pain laterality, unspecified chronicity M54.6 [facility] [address] [id number] [address] [place] [address] Feb, Insomnia G47.00 ; HTN (hyper tension) I10 and Constipation K59.00 [facility] [address] [id number] [address] [place] [address] Feb, [facility] [address] [id number] [address] [place] [address] Jan, Thoracic back pain, unspecif ied back pain laterality, unspecified chronicity M54.6 [facility] [address] [id number] [address] [place] [address] Jan, Anxiety F41.9 [facility] [address] [id number] [address] [place] [address] Jan, Anxiety F41.9 [facility] [address] [id number] [address] [place] [address] Jan, Anxiety F41.9 and Thoracic b ack pain, unspecified back pain laterality, unspecified chronicity M54.6 [facility] [address] [id number] [address] [place] [address] Jan, [facility] [address] [id number] [address] [place] [id number] Jan, [facility] [address] [id number] [address] [place] [address] Dec, Thoracic back pain, unspecif ied back pain laterality, unspecified chronicity M54.6 [facility] [address] [id number] [address] [place] [address] Dec, Thoracic back pain, unspecif ied back pain laterality, unspecified chronicity M54.6 [facility] [address] [id number] [address] [place] [id number] Nov, Thoracic back pain, unspecif ied back pain laterality, unspecified chronicity M54.6 [facility] [address] [facility] [id number] [address] [place] [id number] Nov, Anxiety F41.9 and Thoracic b ack pain, unspecified back pain laterality, unspecified chronicity M54.6 [facility] [address] [id number] [address] [place] [id number] Nov, [facility] [address] [id number] [address] [place] [id number] Nov, [facility] [address] [id number] [address] [place] [id number] Nov, [facility] [address] [id number] [address] [place] [id number] Oct, Thoracic back pain, unspecif ied back pain laterality, unspecified chronicity M54.6 [facility] [address] [id number] [address] [place] [address] Oct, Anxiety F41.9 and Thoracic b ack pain, unspecified back pain laterality, unspecified chronicity M54.6 [facility] [address] [id number] [address] [place] [address] Oct, Schizophrenia, unspecified t ype F20.9 and Acute kidney injury N17.9 [facility] [address] [id number] [address] [place] [id number] Oct, [facility] [address] [id number] [address] [place] [address] Oct, [facility] [address] [id number] [address] [place] [id number] Oct, Thoracic back pain, unspecif ied back pain laterality, unspecified chronicity M54.6 [facility] [address] [id number] [address] [place] [address] Oct, [facility] [address] [id number] [address] [place] [id number] Oct, [facility] [address] [id number] [address] [place] [id number] Sep, Anxiety F41.9 [facility] [address] [id number] [address] [place] [id number] Sep, [facility] [address] [id number] [address] [place] [id number] Sep, Thoracic back pain, unspecif ied back pain laterality, unspecified chronicity M54.6 [facility] [address] [id number] [address] [place] [id number] Sep, [facility] [address] [id number] [address] [place] [id number] Sep, [facility] [address] [id number] [address] [place] [id number] Sep, [facility] [address] [id number] [address] [place] [id number] Sep, [facility] [address] [id number] [address] [place] [id number] Sep, [facility] [address] [id number] [address] [place] [id number] Sep, [facility] [address] [id number] [address] [place] [address] Sep, Chronic pain G89.29 ; Chroni c kidney disease, stage III (moderate) N18.3 ; Hyperlipidemia E78.5 and Insomnia G47.00 [facility] [address] [id number] [address] [place] [id number] Sep, Thoracic back pain, unspecif ied back pain laterality, unspecified chronicity M54.6 [facility] [address] [id number] [address] [place] [address] August, Anxiety F41.9 [facility] [address] [facility] [id number] [address] [place] [id number] August, Thoracic back pain, unspecif ied back pain laterality, unspecified chronicity M54.6 and Anxiety F41.9 [facility] [address] [id number] [address] [place] [address] August, 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 [facility] [address] [id number] [address] [place] [address] August, 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 [facility] [address] [id number] [address] [place] [address] August, [facility] [address] [id number] [address] [place] [address] August, [facility] [address] [id number] [address] [place] [id number] August, Thoracic back pain, unspecif ied back pain laterality, unspecified chronicity M54.6 [facility] [address] [id number] [address] [place] [address] August, [facility] [address] [id number] [address] [place] [address] August, Anxiety F41.9 and Thoracic b ack pain, unspecified back pain laterality, unspecified chronicity M54.6 [facility] [address] [id number] [address] [place] [address] Jul, [facility] [address] [id number] [address] [place] [address] Jul, Thoracic back pain, unspecif ied back pain laterality, unspecified chronicity M54.6 [facility] [address] [id number] [address] [place] [id number] Jun, Anxiety F41.9 and Thoracic b ack pain, unspecified back pain laterality, unspecified chronicity M54.6 [facility] [address] [facility] [id number] [address] [place] [address] Jun, Anxiety F41.9 and Thoracic b ack pain, unspecified back pain laterality, unspecified chronicity M54.6 [facility] [address] [id number] [address] [place] [id number] Jun, Thoracic back pain, unspecif ied back pain laterality, unspecified chronicity M54.6 [facility] [address] [id number] [address] [place] [address] Jun, Anxiety F41.9 and Thoracic b ack pain, unspecified back pain laterality, unspecified chronicity M54.6 [facility] [address] [id number] [address] [place] [address] May, [facility] [address] [id number] [address] [place] [id number] May, [facility] [place] [address] [facility] [id number] [address] [place] [address] May, [facility] [place] [address] [facility] [id number] [address] [place] [address] May, Anxiety F41.9 and Encounter for medication monitoring Z51.81 [facility] [address] [id number] [address] [place] [address] 05 May, 2018 Anxiety F41.9 and Thoracic b ack pain, unspecified back pain laterality, unspecified chronicity M54.6 [facility] [place] [address] [facility] [id number] [address] [place] [address] Apr, Hyperlipidemia 272.4 [facility] [place] [address] [facility] [id number] [address] [place] [address] Apr, Chronic pain G89.29 ; Anxiet y F41.9 ; Cervical radiculopathy M54.12 and Vision loss H54.7 [facility] [address] [id number] [address] [place] [address] Apr, [facility] [address] [facility] [id number] [address] [place] [address] Apr, Anxiety F41.9 and Thoracic b ack pain, unspecified back pain laterality, unspecified chronicity M54.6 [facility] [address] [id number] [address] [place] [address] 17 Mar, 2018 [facility] [address] [id number] [address] [place] [address] Mar, Anxiety F41.9 and Thoracic b ack pain, unspecified back pain laterality, unspecified chronicity M54.6 [facility] [address] [id number] [address] [place] [address] 14 Feb, 2018 Anxiety F41.9 and Thoracic b ack pain, unspecified back pain laterality, unspecified chronicity M54.6 [facility] [address] [id number] [address] [place] [address] 07 Feb, 2018 Thoracic back pain, unspecif ied back pain laterality, unspecified chronicity M54.6 [facility] [address] [id number] [address] [place] [address] 29 Jan, 2018 [facility] [address] [id number] [address] [place] [id number] 16 Jan, 2018 Anxiety F41.9 and Thoracic b ack pain, unspecified back pain laterality, unspecified chronicity M54.6 [facility] [address] [id number] [address] [place] [id number] 19 Dec, 2017 Diarrhea of presumed infecti ous origin R19.7 [facility] [address] [id number] [address] [place] [address] 19 Dec, 2017 Diarrhea of presumed infecti ous origin R19.7 [facility] [address] [id number] [address] [place] [id number] 18 Dec, 2017 Thoracic back pain, unspecif ied back pain laterality, unspecified chronicity M54.6 [facility] [address] [id number] [address] [place] [address] 17 Dec, 2017 [facility] [address] [id number] [address] [place] [id number] 17 Dec, 2017 Anxiety F41.9 and Thoracic b ack pain, unspecified back pain laterality, unspecified chronicity M54.6 [facility] [address] [facility] [id number] [address] [place] [address] Dec, Diarrhea of presumed infecti ous origin R19.7 [facility] [place] [address] [facility] [id number] [address] [place] [address] Dec, [place] [address] [place] [id number] [address] [place] [address] Dec, Anxiety F41.9 and Thoracic b ack pain, unspecified back pain laterality, unspecified chronicity M54.6 [facility] [address] [place] [id number] [address] [place] [id number] Dec, Anxiety F41.9 and Thoracic b ack pain, unspecified back pain laterality, unspecified chronicity M54.6 [facility] [employer] [address] [place] [id number] Dec, Diarrhea of presumed infectious origin R 19.7 ; Anxiety F41.9 ; Thoracic back pain, unspecified back pain laterality, unspecified chronicity M54.6 and HTN (hypertension) I10 [place] [address] [place] [id number] [address] [place] [address] Dec, Anxiety F41.9 [facility] [employer] [address] [place] [id number] Dec, Anxiety F41.9 ; Diarrhea of presumed inf ectious origin R19.7 ; Generalized abdominal pain R10.84 and Localized edema R60.0 [facility] [address] [place] [id number] [address] [place] [address] Nov, [facility] [employer] [address] [place] [id number] Nov, Anxiety F41.9 ; Urinary retention R33.9 ; Diarrhea of presumed infectious origin R19.7 ; Weakness R53.1 ; Acute kidney failure, unspecified N17.9 ; Chronic kidney disease, stage III (moderate) N18.3 and Thoracic back pain, unspecified back pain laterality, unspecified chronicity M54.6 [facility] [address] [place] [id number] [address] [place] [address] Oct, Thoracic back pain, unspecif ied back pain laterality, unspecified chronicity M54.6 and Anxiety F41.9 [place] [address] [facility] [id number] [address] [place] [address] Sep, Thoracic back pain, unspecif ied back pain laterality, unspecified chronicity M54.6 and Anxiety F41.9 [place] [address] [place] [id number] [place] [address] 04 Sep, 2017 Thoracic back pain, unspecif ied back pain laterality, unspecified chronicity M54.6 ; Anxiety F41.9 and Encounter for medication monitoring Z51.81 [facility] [place] [address] [place] [id number] [address] [place] [address] August, [place] [address] [id number] August, Thoracic back pain, unspecif ied back pain laterality, unspecified chronicity M54.6 and Anxiety F41.9 [place] [address] [address] August, Hyperlipidemia E78.5 and HTN (hypertension) I10 [place] [address] [place] [id number] [address] [place] [address] August, [place] [address] [place] [id number] [place] [address] August, Medicare welcome exam Z00.00 ; Chronic kidney failure N18.9 ; Anxiety F41.9 ; Chronic pain G89.29 ; Insomnia G47.00 ; Hyperlipidemia E78.5 ; HTN (hypertension) I10 and Thoracic back pain, unspecified back pain laterality, unspecified chronicity M54.6 [place] [address] [place] [id number] [address] [place] [address] Jul, [place] [address] [place] [id number] [place] [address] Jul, [facility] [address] [facility] [id number] [address] [place] [address] Jul, [facility] [address] [id number] [address] [place] [address] Jul, Anxiety F41.9 [facility] [address] [facility] [id number] [address] [place] [id number] Jul, Thoracic back pain, unspecif ied back pain laterality, unspecified chronicity M54.6 and Anxiety F41.9 [facility] [address] [facility] [id number] [address] [place] [address] Jun, Thoracic back pain, unspecif ied back pain laterality, unspecified chronicity M54.6 and Anxiety F41.9 [place] [id number] [facility] [id number] [address] [place] [address] May, Thoracic back pain, unspecif ied back pain laterality, unspecified chronicity M54.6 and Anxiety F41.9 [facility] [address] [facility] [id number] [address] [place] [address] Apr, Thoracic back pain, unspecif ied back pain laterality, unspecified chronicity M54.6 and Anxiety F41.9 [facility] [address] [facility] [id number] [address] [place] [address] Mar, [facility] [address] [facility] [id number] [address] [place] [id number] 14 Mar, 2017 Thoracic back pain, unspecif ied back pain laterality, unspecified chronicity M54.6 and Anxiety F41.9 [facility] [address] [facility] [id number] [address] [place] [id number] 14 Mar, 2017 Thoracic back pain, unspecif ied back pain laterality, unspecified chronicity M54.6 ; HTN (hypertension) I10 ; Hyperlipidemia E78.5 and Anxiety F41.9 [facility] [address] [facility] [id number] [address] [place] [id number] Feb, Thoracic back pain, unspecif ied back pain laterality, unspecified chronicity M54.6 and Anxiety F41.9 [facility] [address] [facility] [id number] [address] [place] [id number] Nov, [facility] [address] [facility] [id number] [address] [place] [id number] Oct, [facility] [address] [place] [id number] [address] [place] [id number] Oct, Thoracic back pain, unspecif ied back pain laterality, unspecified chronicity M54.6 [facility] [address] [facility] [id number] [address] [place] [address] Oct, HTN (hypertension) I10 ; Con stipation K59.00 ; Hyperlipidemia E78.5 ; Thoracic back pain, unspecified back pain laterality, unspecified chronicity M54.6 ; Chronic pain G89.29 ; Anxiety F41.9 ; Chronic kidney failure N18.9 ; Environmental allergies Z91.09 ; Vitamin D deficiency E55.9 and Primary insomnia F51.01 [facility] [address] [facility] [id number] [address] [place] [address] Sep, Anxiety F41.9 [facility] [address] [facility] [id number] [address] [place] [address] Sep, [facility] [address] [facility] [id number] [address] [place] [address] August, Anxiety F41.9 [facility] [address] [facility] [id number] [address] [place] [id number] August, [facility] [address] [id number] [address] [place] [address] Jul, Anxiety F41.9 [facility] [address] [facility] [id number] [address] [place] [id number] Jul, [facility] [address] [facility] [id number] [address] [place] [address] Jun, Anxiety F41.9 [facility] [address] [id number] [address] [place] [address] Jun, [facility] [address] [id number] [address] [place] [address] May, [facility] [address] [facility] [id number] [address] [place] [address] May, [facility] [address] [facility] [id number] [address] [place] [address] May, [facility] [address] [facility] [id number] [address] [place] [id number] Apr, [facility] [address] [facility] [id number] [address] [place] [id number] Apr, [facility] [address] [facility] [id number] [address] [place] [address] Apr, Anxiety F41.9 [facility] [address] [facility] [id number] [address] [place] [address] Apr, Anxiety F41.9 [facility] [address] [facility] [id number] [address] [place] [id number] Apr, [facility] [address] [facility] [id number] [address] [place] [address] Mar, HTN (hypertension) I10 ; Phillip mor R25.1 ; Hypercholesterolemia E78.0 ; Constipation K59.00 ; Chronic pain G89.29 ; Hyperlipidemia E78.5 ; Insomnia G47.00 ; Anxiety F41.9 and Thoracic back pain, unspecified back pain laterality, unspecified chronicity M54.6 [facility] [address] [id number] [address] [place] [address] Mar, Tremor R25.1 ; HTN (hyperten stas) I10 ; Hypercholesterolemia E78.0 ; Constipation K59.00 ; Chronic pain G89.29 ; Hyperlipidemia E78.5 ; Insomnia G47.00 ; Anxiety F41.9 and Thoracic back pain, unspecified back pain laterality, unspecified chronicity M54.6 [facility] [address] [id number] [address] [place] [address], [place] [address] 07 Mar, 2016 [facility] [address] [id number] [address] [place] [address], [place] [address] Mar, [facility] [address] [id number] [address] [place] [address], [place] [address] Feb, [facility] [address] [id number] [address] [place] [address], [place] [address] Jan, [facility] [address] [id number] [address] [place] [address], [place] [address] Jan, [facility] [address] [id number] [address] [place] [address], [place] [address] 15 Dec, 2015 [facility] [address] [id number] [address] [place] [address], [place] [address] Nov, [facility] [address] [id number] [address] [place] [address], [place] [address] Nov, [facility] [address] [id number] [address] [place] [address], [place] [address] Oct, Anxiety F41.9 [facility] [address] [id number] [address] [place] [address], [place] [address] Oct, Chronic pain G89.29 [facility] [address] [id number] [address] [place] [address], [place] [address] Sep, [facility] [address] [id number] [address] [place] [address], [place] [address] Sep, [facility] [address] [id number] [address] [place] [address], [place] [address] Sep, [facility] [address] [id number] [address] [place] [address], [place] [address] Sep, [facility] [address] [id number] [address] [place] [address], [place] [address] 16 Sep, 2015 Chronic pain syndrome G89.4 [facility] [address] [facility] [id number] [address] [place] [address] Sep, HTN (hypertension) I10 ; Chr onic pain G89.29 ; Hypercholesterolemia E78.0 ; Chronic kidney failure N18.9 ; Constipation, unspecified constipation type K59.00 ; Anxiety F41.9 and Thoracic back pain, unspecified back pain laterality, unspecified chronicity M54.6 [facility] [address] [facility] [id number] [address] [place] [address] August, Chronic pain syndrome G89.4 [facility] [address] [place] [id number] [address] [place] [address] August, Chronic pain syndrome G89.4 [place] [id number] [place] [id number] [address] [place] [id number] Jul, Anxiety disorder, unspecifie d F41.9 and Chronic pain syndrome G89.4 [place] [address] [place] [id number] [address] [place] [id number] Jul, Insomnia, unspecified G47.00 and Chronic pain syndrome G89.4 [place] [address] [place] [id number] [address] [place] [address] Jul, Allergic rhinitis J30.9 [place] [address] [place] [id number] [address] [place] [address] Jul, Constipation, unspecified K5 9.00 [facility] [address] [facility] [id number] [address] [place] [address] Jul, [facility] [address] [facility] [id number] [address] [place] [address] Jun, [facility] [address] [place] [id number] [address] [place] [address] Jun, [facility] [address] [place] [id number] [address] [place] [address] Jun, [place] [address] [place] [id number] [address] [place] [address] Jun, [facility] [address] [facility] [id number] [address] [place] [address] Jun, [facility] [address] [facility] [id number] [address] [place] [address] Jun, [facility] [address] [facility] [id number] [address] [place] [address] May, [facility] [address] [facility] [id number] [address] [place] [address] May, [facility] [address] [facility] [id number] [address] [place] [address] May, Anxiety F41.9 ; Insomnia G47 .00 ; Hyperlipidemia E78.5 ; Chronic pain G89.29 ; HTN (hypertension) I10 ; Environmental allergies V15.09 and Constipation 564.00 [facility] [address] [facility] [id number] [address] [place] [address] Apr, [facility] [address] [facility] [id number] [address] [place] [address] Apr, [facility] [address] [facility] [id number] [address] [place] [address] Apr, [facility] [address] [facility] [id number] [address] [place] [address] Mar, [facility] [address] [facility] [id number] [address] [place] [id number] Mar, [facility] [address] [facility] [id number] [address] [place] [address] Mar, [facility] [address] [facility] [id number] [address] [place] [id number] Feb, [facility] [address] [facility] [id number] [address] [place] [id number] Feb, [facility] [address] [facility] [id number] [address] [place] [address] Feb, [facility] [address] [address] Jan, HTN (hypertension) I10 ; Con stipation K59.00 ; Chronic pain G89.29 ; Hyperlipidemia E78.5 ; Hypercholesterolemia E78.0 ; Insomnia G47.00 and Anxiety F41.9 [facility] [address] [id number] Jan, [facility] [address] [address] Dec, [place] [address] [address] Nov, [facility] [address] [address] Oct, Chronic kidney disease, unsp ecified 585.9 ; Chronic pain syndrome 338.4 ; Hyperlipidemia 272.4 and Essential hypertension 401.9 [facility] [address] [address] Oct, Chronic kidney disease 585.9 [place] [address] [address] Oct, [facility] [address] [address] Oct, Chronic kidney disease, unsp ecified 585.9 ; Hypercalcemia 275.42 ; Hyperlipidemia 272.4 ; Essential hypertension 401.9 ; Chronic pain syndrome 338.4 ; Insomnia 780.52 ; Constipation 564.00 ; Environmental allergies V15.09 and Anxiety 300.00 [place] [address] [address] Oct, Chronic kidney disease 585.9 [facility] [address] [address] Oct, [facility] [address] [address] 14 Oct, 2014 Chronic kidney disease 585.9 and Hyperlipidemia 272.4 [facility] [address] [id number] [address] [place] [address] 10 Oct, 2014 [facility] [address] [id number] [address] [place] [address] 10 Oct, 2014 [facility] [address] [id number] [address] [place] [address] 18 Sep, 2014 [facility] [address] [id number] [address] [place] [address] 15 Sep, 2014 [facility] [address] [id number] [address] [place] [address] 15 Sep, 2014 Chronic kidney disease 585.9 and Hyperlipidemia 272.4 [facility] [address] [id number] [address] [place] [address] Sep, [facility] [address] [id number] [address] [place] [id number] August, [facility] [address] [id number] [address] [place] [address] August, [facility] [address] [id number] [address] [place] [id number] 14 Jul, 2014 [facility] [address] [id number] [address] [place] [address] Jul, [facility] [address] [id number] [address] [place] [address] 20 Jun, 2014 [facility] [address] [id number] [address] [place] [address] 20 Jun, 2014 [facility] [address] [id number] [address] [place] [id number] 16 Jun, 2014 [facility] [address] [id number] [address] [place] [id number] 16 Jun, 2014 [facility] [address] [id number] [address] [place] [id number] Jun, [facility] [address] [id number] [address] [place] [address], [place] [address] Jun, [facility] [address] [id number] [address] [place] [address], [place] [address] Jun, [facility] [address] [id number] [address] [place] [address], [place] [address] Jun, [facility] [address] [id number] [address] [place] [address], [place] [address] May, [facility] [address] [id number] [address] [place] [address], [place] [address] May, [facility] [address] [id number] [address] [place] [address], [place] [address] May, [facility] [address] [id number] [address] [place] [address], [place] [address] May, [facility] [address] [id number] [address] [place] [address], [place] [address] Apr, [facility] [address] [id number] [address] [place] [address], [place] [address] Apr, [facility] [address] [id number] [address] [place] [address], [place] [address] Apr, [facility] [address] [id number] [address] [place] [address], [place] [address] Apr, [facility] [address] [id number] [address] [place] [id number] Apr, [facility] [address] [id number] [address] [place] [id number] Apr, [facility] [address] [id number] [address] [place] [address], [place] [address] Apr, [facility] [address] [id number] [address] [place] [id number] Apr, [facility] [address] [id number] [address] [place] [address], [place] [address] Apr, [facility] [address] [id number] [address] [place] [address], [place] [address] Apr, [facility] [address] [id number] [address] [place] [address], [place] [address] Apr, [facility] [address] [id number] [address] [place] [address], [place] [address] Mar, [facility] [address] [id number] [address] [place] [address], [place] [address] Mar, [facility] [address] [id number] [address] [place] [address], [place] [address] Feb, [facility] [address] [id number] [address] [place] [address], [place] [address] Feb, [facility] [address] [id number] [address] [place] [address], [place] [address] Feb, [facility] [address] [id number] [address] [place] [address], [place] [address] Feb, [facility] [address] [id number] [address] [place] [address], [place] [address] Feb, [facility] [address] [id number] [address] [place] [address], [place] [address] Feb, [facility] [address] [id number] [address] [place] [address], [place] [address] Feb, [facility] [address] [id number] [address] [place] [address], [place] [address] Feb, [facility] [address] [id number] [address] [place] [address], [place] [address] Feb, [facility] [address] [id number] [address] [place] [address], [place] [address] Feb, [facility] [address] [id number] [address] [place] [address], [place] [address] Jan, [facility] [address] [id number] [address] [place] [address], [place] [address] Jan, [facility] [address] [id number] [address] [place] [address], [place] [address] Jan, [facility] [address] [id number] [address] [place] [address], [place] [address] Jan, [facility] [address] [id number] [address] [place] [address], [place] [address] Jan, [facility] [address] [id number] [address] [place] [address], [place] [address] 24 Jan, 2014 [facility] [address] [id number] [address] [place] [address], [place] [address] Jan, [facility] [address] [id number] [address] [place] [address], [place] [address] 17 Jan, 2014 [facility] [address] [id number] [address] [place] [address], [place] [address] 16 Jan, 2014 [facility] [address] [id number] [address] [place] [address], [place] [address] 06 Jan, 2014 [facility] [address] [id number] [address] [place] [address], [place] [address] 06 Jan, 2014 [facility] [address] [id number] [address] [place] [address], [place] [address] 26 Dec, 2013 [facility] [address] [id number] [address] [place] [address], [place] [address] 26 Dec, 2013 [facility] [address] [id number] [address] [place] [address], [place] [address] 19 Dec, 2013 [facility] [address] [id number] [address] [place] [address], [place] [address] 19 Dec, 2013 [facility] [address] [id number] [address] [place] [address], [place] [address] 18 Dec, 2013 [facility] [address] [id number] [address] [place] [address], [place] [address] 18 Dec, 2013 [facility] [address] [id number] [address] [place] [address], [place] [address] Dec, [facility] [address] [id number] [address] [place] [address], [place] [address] Dec, [facility] [address] [id number] [address] [place] [address], [place] [address] Nov, [facility] [address] [id number] [address] [place] [address], [place] [address] Nov, [facility] [address] [id number] [address] [place] [address], [place] [address] Nov, [facility] [address] [id number] [address] [place] [address], [place] [address] Nov, [facility] [address] [id number] [address] [place] [address], [place] [address] Nov, [facility] [address] [id number] [address] [place] [address], [place] [address] Nov, [facility] [address] [id number] [address] [place] [address], [place] [address] Nov, [facility] [address] [id number] [address] [place] [address], [place] [address] Nov, [facility] [address] [id number] [address] [place] [address], [place] [address] Oct, [facility] [address] [id number] [address] [place] [address], [place] [address] Oct, [facility] [address] [id number] [address] [place] [address], [place] [address] Oct, [facility] [address] [id number] [address] [place] [address], [place] [address] Oct, [facility] [address] [id number] [address] [place] [address], [place] [address] Sep, [facility] [address] [id number] [address] [place] [address], [place] [address] Sep, [facility] [address] [id number] [address] [place] [address], [place] [address] Sep, [facility] [address] [id number] [address] [place] [address], [place] [address] Sep, [facility] [address] [id number] [address] [place] [address], [place] [id number] Sep, [facility] [address] [id number] [address] [place] [address], [place] [id number] Sep, [facility] [address] [id number] [address] [place] [address], [place] [id number] Sep, [facility] [address] [id number] [address] [place] [address], [place] [address] Sep, [facility] [address] [id number] [address] [place] [address], [place] [address] August, [facility] [address] [id number] [address] [place] [address], [place] [address] August, [facility] [address] [id number] [address] [place] [address], [place] [address] August, [facility] [address] [id number] [address] [place] [address], [place] [address] August, [facility] [address] [id number] [address] [place] [address], [place] [address] August, [facility] [address] [id number] [address] [place] [address], [place] [id number] August, [facility] [address] [id number] [address] [place] [address], [place] [address] August, [facility] [address] [id number] [address] [place] [address], [place] [address] August, [facility] [address] [id number] [address] [place] [address], [place] [address] August, [facility] [address] [id number] [address] [place] [address], [place] [address] August, [facility] [address] [id number] [address] [place] [address], [place] [address] Jul, [facility] [address] [id number] [address] [place] [address], [place] [address] Jul, [facility] [address] [id number] [address] [place] [address], [place] [address] Jul, [facility] [address] [id number] [address] [place] [address], [place] [address] Jul, [facility] [address] [id number] [address] [place] [address], [place] [address] Jul, [facility] [address] [id number] [address] [place] [address], [place] [address] Jul, [facility] [address] [id number] [address] [place] [address], [place] [address] Jul, [facility] [address] [id number] [address] [place] [address], [place] [address] Jul, [facility] [address] [id number] [address] [place] [address], [place] [address] Jun, [facility] [address] [id number] [address] [place] [address], [place] [address] Jun, [facility] [address] [id number] [address] [place] [address], [place] [address] Jun, [facility] [address] [id number] [address] [place] [address], [place] [address] Jun, [facility] [address] [id number] [address] [place] [address], [place] [address] Jun, [facility] [address] [id number] [address] [place] [address], [place] [address] Jun, [facility] [address] [id number] [address] [place] [address], [place] [address] May, [facility] [address] [id number] [address] [place] [address], [place] [id number] May, [facility] [address] [id number] [address] [place] [address], [place] [address] May, [facility] [address] [id number] [address] [place] [address], [place] [address] May, [facility] [address] [id number] [address] [place] [address], [place] [id number] May, [facility] [address] [address] [id number] [address] [place] [address], [place] [address] May, [facility] [address] [id number] [address] [place] [address], [place] [address] May, [facility] [address] [id number] [address] [place] [address], [place] [address] Apr, [facility] [address] [id number] [address] [place] [address], [place] [address] Apr, [facility] [address] [id number] [address] [place] [address], [place] [address] Apr, [facility] [address] [id number] [address] [place] [address], [place] [address] Apr, [facility] [address] [id number] [address] [place] [address], [place] [address] Apr, [facility] [address] [id number] [address] [place] [address], [place] [address] Apr, [facility] [address] [id number] [address] [place] [address], [place] [address] Mar, [facility] [address] [id number] [address] [place] [address], [place] [address] Mar, [facility] [address] [id number] [address] [place] [address], [place] [address] Mar, [facility] [address] [id number] [address] [place] [address], [place] [address] Mar, [facility] [address] [id number] [address] [place] [address], [place] [address] Mar, [facility] [address] [id number] [address] [place] [address], [place] [address] Mar, [facility] [address] [id number] [address] [place] [address], [place] [address] 16 Mar, 2013 [facility] [address] [id number] [address] [place] [address], [place] [address] Mar, [facility] [address] [id number] [address] [place] [address], [place] [address] Mar, [facility] [address] [id number] [address] [place] [address], [place] [address] Mar, [facility] [address] [id number] [address] [place] [address], [place] [address] Feb, [facility] [address] [id number] [address] [place] [address], [place] [address] Feb, [facility] [address] [id number] [address] [place] [address], [place] [address] Feb, [facility] [address] [id number] [address] [place] [address], [place] [address] Feb, [facility] [address] [id number] [address] [place] [address], [place] [address] 14 Feb, 2013 [facility] [address] [id number] [address] [place] [address], [place] [address] 14 Feb, 2013 [facility] [address] [id number] [address] [place] [address], [place] [address] Feb, [facility] [address] [id number] [address] [place] [address], [place] [address] Feb, [facility] [address] [id number] [address] [place] [address], [place] [address] 08 Feb, 2013 [facility] [address] [id number] [address] [place] [address], [place] [address] Feb, [facility] [address] [id number] [address] [place] [address], [place] [address] Jan, [facility] [address] [id number] [address] [place] [address], [place] [address] Jan, [facility] [address] [id number] [address] [place] [address], [place] [address] Jan, [facility] [address] [id number] [address] [place] [address], [place] [address] Jan, [facility] [address] [id number] [address] [place] [address], [place] [address] Jan, [facility] [address] [id number] [address] [place] [address], [place] [address] Jan, [facility] [address] [id number] [address] [place] [address], [place] [address] Jan, [facility] [address] [id number] [address] [place] [address], [place] [address] Jan, [facility] [address] [id number] [address] [place] [address], [place] [address] Jan, [facility] [address] [id number] [address] [place] [address], [place] [address] 25 Dec, 2012 [facility] [address] [id number] [address] [place] [address], [place] [address] 23 Dec, 2012 [facility] [address] [id number] [address] [place] [address], [place] [address] 21 Dec, 2012 [facility] [address] [id number] [address] [place] [address], [place] [address] 13 Dec, 2012 [facility] [address] [id number] [address] [place] [address], [place] [address] Nov, [facility] [address] [id number] [address] [place] [address], [place] [address] Nov, [facility] [address] [id number] [address] [place] [address], [place] [address] Nov, [facility] [address] [id number] [address] [place] [address], [place] [address] Nov, [facility] [address] [id number] [address] [place] [address], [place] [address] Nov, [facility] [address] [id number] [address] [place] [address], [place] [address] Nov, [facility] [address] [id number] [address] [place] [address], [place] [address] Oct, [facility] [address] [id number] [address] [place] [address], [place] [address] Oct, [facility] [address] [id number] [address] [place] [address], [place] [address] Oct, [facility] [address] [id number] [address] [place] [address], [place] [address] Oct, [facility] [address] [id number] [address] [place] [address], [place] [address] Sep, [facility] [address] [id number] [address] [place] [address], [place] [address] Sep, [facility] [address] [id number] [address] [place] [address], [place] [address] Sep, [facility] [address] [id number] [address] [place] [address], [place] [address] Sep, [facility] [address] [id number] [address] [place] [address], [place] [address] Sep, [facility] [address] [id number] [address] [place] [address], [place] [address] August, [facility] [address] [id number] [address] [place] [address], [place] [address] 2012 [facility] [address] [id number] [address] [place] [address], [place] [address] Jul, [facility] [address] [id number] [address] [place] [address], [place] [address] Jul, [facility] [address] [id number] [address] [place] [address], [place] [address] 15 Jul, 2012 [facility] [address] [id number] [address] [place] [address], [place] [address] Jul, [facility] [address] [id number] [address] [place] [address], [place] [address] Jul, [facility] [address] [id number] [address] [place] [address], [place] [address] Jun, [facility] [address] [id number] [address] [place] [address], [place] [address] Jun, [facility] [address] [id number] [address] [place] [address], [place] [address] Jun, [facility] [address] [id number] [address] [place] [address], [place] [address] 06 Jun, 2012 [facility] [address] [id number] [address] [place] [address], [place] [address] Jun, [facility] [address] [id number] [address] [place] [address], [place] [address] May, [facility] [address] [id number] [address] [place] [address], [place] [address] May, [facility] [address] [id number] [address] [place] [address], [place] [address] May, [facility] [address] [id number] [address] [place] [address], [place] [address] May, [facility] [address] [id number] [address] [place] [address], [place] [address] May, [facility] [address] [id number] [address] [place] [address], [place] [address] 14 May, 2012 [facility] [address] [id number] [address] [place] [address], [place] [address] 13 May, 2012 [facility] [address] [id number] [address] [place] [address], [place] [address] 08 May, 2012 [facility] [address] [id number] [address] [place] [address], [place] [address] 04 May, 2012 [facility] [address] [id number] [address] [place] [address], [place] [address] Apr, [facility] [address] [id number] [address] [place] [address], [place] [address] Apr, [facility] [address] [id number] [address] [place] [address], [place] [address] Apr, [facility] [address] [id number] [address] [place] [address], [place] [address] Apr, [facility] [address] [id number] [address] [place] [address], [place] [address] Apr, [facility] [address] [id number] [address] [place] [address], [place] [address] Mar, [facility] [address] [id number] [address] [place] [address], [place] [address] Mar, [facility] [address] [id number] [address] [place] [address], [place] [address] Mar, [facility] [address] [id number] [address] [place] [address], [place] [address] Mar, [facility] [address] [id number] [address] [place] [address], [place] [address] Mar, [facility] [address] [id number] [address] [place] [address], [place] [address] Mar, [facility] [address] [id number] [address] [place] [address], [place] [address] 17 Mar, 2012 [facility] [address] [id number] [address] [place] [address], [place] [address] 17 Mar, 2012 [facility] [address] [id number] [address] [place] [address], [place] [address] 07 Mar, 2012 [facility] [address] [id number] [address] [place] [address], [place] [address] 07 Mar, 2012 [facility] [address] [id number] [address] [place] [address], [place] [address] 30 Feb, 2012 [facility] [address] [id number] [address] [place] [address], [place] [address] 30 Feb, 2012 [facility] [address] [id number] [address] [place] [address], [place] [address] 29 Feb, 2012 [facility] [address] [id number] [address] [place] [address], [place] [address] 29 Feb, 2012 [facility] [address] [id number] [address] [place] [address], [place] [address] Feb, [facility] [address] [id number] [address] [place] [address], [place] [address] 23 Feb, 2012 [facility] [address] [id number] [address] [place] [address], [place] [address] Feb, [facility] [address] [id number] [address] [place] [address], [place] [address] 20 Feb, 2012 [facility] [address] [id number] [address] [place] [address], [place] [address] 16 Feb, 2012 [facility] [address] [id number] [address] [place] [address], [place] [address] 16 Feb, 2012 [facility] [address] [id number] [address] [place] [address], [place] [address] 13 Feb, 2012 [facility] [address] [id number] [address] [place] [address], [place] [address] 13 Feb, 2012 [facility] [address] [id number] [address] [place] [address], [place] [address] Feb, [facility] [address] [id number] [address] [place] [address], [place] [address] Feb, [facility] [address] [id number] [address] [place] [address], [place] [address] Feb, [facility] [address] [id number] [address] [place] [address], [place] [address] Feb, [facility] [address] [id number] [address] [place] [address], [place] [address] Feb, [facility] [address] [id number] [address] [place] [address], [place] [address] Feb, [facility] [address] [id number] [address] [place] [address], [place] [address] Jan, [facility] [address] [id number] [address] [place] [address], [place] [address] Jan, [facility] [address] [id number] [address] [place] [address], [place] [address] Jan, [facility] [address] [id number] [address] [place] [address], [place] [address] Jan, [facility] [address] [id number] [address] [place] [address], [place] [address] Jan, [facility] [address] [id number] [address] [place] [address], [place] [address] Jan, [facility] [address] [id number] [address] [place] [address], [place] [address] Jan, [facility] [address] [id number] [address] [place] [address], [place] [address] Jan, [facility] [address] [id number] [address] [place] [address], [place] [address] Jan, [facility] [address] [id number] [address] [place] [id number] Jan, [facility] [address] [id number] [address] [place] [address], [place] [address] 24 Dec, 2011 [facility] [address] [id number] [address] [place] [address], [place] [address] Dec, [facility] [address] [id number] [address] [place] [address], [place] [address] Dec, [facility] [address] [id number] [address] [place] [address], [place] [address] Dec, [facility] [address] [id number] [address] [place] [address], [place] [address] Nov, [facility] [address] [id number] [address] [place] [address], [place] [address] Nov, [facility] [address] [id number] [address] [place] [address], [place] [address] Nov, [facility] [address] [id number] [address] [place] [address], [place] [address] Nov, [facility] [address] [id number] [address] [place] [address], [place] [address] Nov, [facility] [address] [id number] [address] [place] [address], [place] [address] Nov, [facility] [address] [id number] [address] [place] [address], [place] [address] Oct, [facility] [address] [id number] [address] [place] [address], [place] [address] Oct, [facility] [address] [id number] [address] [place] [address], [place] [address] Oct, [facility] [address] [id number] [address] [place] [address], [place] [address] Oct, [facility] [address] [id number] [address] [place] [address], [place] [address] Oct, [facility] [address] [id number] [address] [place] [address], [place] [address] 26 Sep, 2011 [facility] [address] [id number] [address] [place] [address], [place] [address] 20 Sep, 2011 [facility] [address] [id number] [address] [place] [address], [place] [address] 19 Sep, 2011 [facility] [address] [id number] [address] [place] [address], [place] [address] 07 Sep, 2011 [facility] [address] [id number] [address] [place] [address], [place] [address] 05 Sep, 2011 [facility] [address] [id number] [address] [place] [address], [place] [address] August, [facility] [address] [id number] [address] [place] [address], [place] [address] August, [facility] [address] [id number] [address] [place] [address], [place] [address] August, [facility] [address] [id number] [address] [place] [address], [place] [address] August, [facility] [address] [id number] [address] [place] [address], [place] [address] 27 Jul, 2011 [facility] [address] [id number] [address] [place] [address], [place] [address] 24 Jul, 2011 [facility] [address] [id number] [address] [place] [address], [place] [address] Jul, [facility] [address] [id number] [address] [place] [address], [place] [address] 18 Jul, 2011 [facility] [address] [id number] [address] [place] [address], [place] [address] 18 Jul, 2011 [facility] [address] [id number] [address] [place] [address], [place] [address] 12 Jul, 2011 [facility] [address] [id number] [address] [place] [address], [place] [address] 11 Jul, 2011 [facility] [address] [id number] [address] [place] [address], [place] [address] 10 Jul, 2011 [facility] [address] [id number] [address] [place] [address], [place] [address] Jul, [facility] [address] [id number] [address] [place] [address], [place] [address] Jul, [facility] [address] [id number] [address] [place] [address], [place] [address] Jul, [facility] [address] [id number] [address] [place] [address], [place] [id number] Jul, [facility] [address] [id number] [address] [place] [address], [place] [id number] Jul, [facility] [address] [id number] [address] [place] [address], [place] [id number] Jul, [facility] [address] [id number] [address] [place] [address], [place] [id number] Jun, [facility] [address] [id number] [address] [place] [address], [place] [id number] Jun, [facility] [address] [id number] [address] [place] [address], [place] [id number] Jun, [facility] [address] [id number] [address] [place] [address], [place] [address] Jun, [facility] [address] [id number] [address] [place] [address], [place] [id number] May, [facility] [address] [id number] [address] [place] [address], [place] [id number] May, [facility] [address] [id number] [address] [place] [address], [place] [address] May, [facility] [address] [id number] [address] [place] [address], [place] [id number] Apr, [facility] [address] [id number] [address] [place] [address], [place] [id number] 18 Apr, 2011 [facility] [address] [id number] [address] [place] [address], [place] [id number] 13 Apr, 2011 [facility] [address] [id number] [address] [place] [address], [place] [id number] 11 Apr, 2011 [facility] [address] [id number] [address] [place] [address], [place] [id number] 09 Apr, 2011 [facility] [address] [id number] [address] [place] [address], [place] [id number] 27 Mar, 2011 [facility] [address] [id number] [address] [place] [address], [place] [id number] Mar, [facility] [address] [id number] [address] [place] [address], [place] [id number] Mar, [facility] [address] [id number] [address] [place] [address], [place] [address] Mar, [facility] [address] [id number] [address] [place] [address], [place] [id number] Mar, [facility] [address] [id number] [address] [place] [address], [place] [id number] Mar, [facility] [address] [id number] [address] [place] [address], [place] [id number] Mar, [facility] [address] [id number] [address] [place] [address], [place] [address] Feb, [facility] [address] [id number] [address] [place] [address], [place] [id number] Feb, [facility] [address] [id number] [address] [place] [address], [place] [address] Feb, [facility] [address] [id number] [address] [place] [address], [place] [id number] Feb, [facility] [address] [id number] [address] [place] [address], [place] [id number] 16 Feb, 2011 [facility] [address] [id number] [address] [place] [address], [place] [id number] 14 Feb, 2011 [facility] [address] [id number] [address] [place] [address], [place] [id number] 10 Feb, 2011 [facility] [address] [id number] [address] [place] [address], [place] [id number] 31 Jan, 2011 [facility] [address] [id number] [address] [place] [address], [place] [id number] 31 Jan, 2011 [facility] [address] [id number] [address] [place] [address], [place] [id number] 31 Jan, 2011 [facility] [address] [id number] [address] [place] [address], [place] [id number] 18 Jan, 2011 [facility] [address] [id number] [address] [place] [address], [place] [id number] 17 Jan, 2011 [facility] [address] [id number] [address] [place] [address], [place] [id number] 17 Jan, 2011 [facility] [address] [id number] [address] [place] [address], [place] [id number] 17 Jun, 2010 [facility] [address] [id number] [address] [place] [address], [place] [id number] 30 Mar, 2010 [facility] [address] [id number] [address] [place] [address], [place] [id number] 20 Mar, 2010 [facility] [address] [id number] [address] [place] [address], [place] [id number] 14 Mar, 2010 [facility] [address] [id number] [address] [place] [address], [place] [id number] 14 Mar, 2010 [facility] [address] [id number] [address] [place] [address], [place] [id number] 13 Mar, 2010 [facility] [address] [id number] [address] [place] [address], [place] [id number] 07 Mar, 2010 [facility] [address] [id number] [address] [place] [address], [place] [id number] Mar, [facility] [address] [id number] [address] [place] [address], [place] [id number] Mar, [facility] [address] [id number] [address] [place] [address], [place] [id number] 30 Feb, 2010 [facility] [address] [id number] [address] [place] [address], [place] [id number] Feb, [facility] [address] [id number] [address] [place] [address], [place] [id number] Feb, [facility] [address] [id number] [address] [place] [address], [place] [id number] Feb, [facility] [address] [id number] [address] [place] [address], [place] [id number] 16 Feb, 2010 [facility] [address] [id number] [address] [place] [address], [place] [id number] Feb, [facility] [address] [id number] [address] [place] [address], [place] [id number] Feb, [facility] [address] [id number] [address] [place] [address], [place] [id number] Feb, [facility] [address] [id number] [address] [place] [address], [place] [id number] Jan, [facility] [address] [id number] [address] [place] [id number] Jan, [facility] [address] [id number] [address] [place] [id number] Jan, [facility] [address] [id number] [address] [place] [address], [place] [id number] Jan, [facility] [address] [id number] [address] [place] [id number] Mar, [facility] [address] [id number] [address] [place] [address], [place] [id number] Mar, [facility] [address] [id number] [address] [place] [id number] Mar, [facility] [address] [id number] [address] [place] [id number] Mar, [facility] [address] [id number] [address] [place] [id number] 14 Mar, 2009 [facility] [address] [id number] [address] [place] [id number] Mar, [facility] [address] [id number] [address] [place] [id number] Feb, [facility] [address] [id number] [address] [place] [id number] Feb, [facility] [address] [id number] [address] [place] [id number] Jan, [facility] [address] [id number] [address] [place] [id number] Sep, [facility] [address] [id number] [address] [place] [id number] May, IMMUNIZATIONS No Known Immunizations SOCIAL HISTORY [...] Surgical History Left ear surgery Hospitalization History [facility] in [place]- Spontane ous Pneumothorax Hospitalization History [facility]- Colon resection Hospitalization History [facility] - diarrhea/ couldnt urin ate nov 2017 Hospitalization History pain /hip to foot right side 10/16/19 19
--- OUTSIDE RECORDS SUMMARY | 2019-08-28 08:47 | XMS REPORT ---
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 Role Phone Migration, Doctor Unavailable Unavailable PROBLEMS Type Condition ICD9-CM Code YMP90-RM Code Onset Dates Condition S tatus SNOMED Code Problem HTN (hypertension) I10 Active 3 8100520 Problem Anxiety F41.9 Active 38839043 Problem Schizophrenia, unspecified type F20.9 Active 65859891 Problem Age-related cataract of both eyes, unspecified age-related cataract type H25.9 Active 98985471 Problem Hyperlipidemia E78.5 Active 16071 004 Problem Constipation K59.00 Active 4847706 8 Problem Thoracic back pain, unspecif ied back pain laterality, unspecified chronicity M54.6 Active 349634574 Problem Environmental allergies Z91.09 Active [id number] ALLERGIES No Information ENCOUNTERS Encounter Location Date Diagnosis [place] [address] [address] [facility] [id number] [address] [place] [address] Jul, [place] [address] [address] [place] [id number] [address] [place] [address] Jul, Thoracic back pain, unspecif ied back pain laterality, unspecified chronicity M54.6 ; Anxiety F41.9 and Constipation K59.00 [facility] [address] [facility] [id number] [address] [place] [address] Jul, Psychophysiological insomnia F51.04 [place] [address] [address] [facility] [id number] [address] [place] [address] Jul, [facility] [address] [facility] [id number] [address] [place] [address] Jul, [place] [address] [address] [facility] [id number] [address] [place] [address] Jul, [facility] [address] [place] [id number] [address] [place] [address] Jul, [facility] [address] [id number] [address] [place] [address] Jul, Thoracic back pain, unspecif ied back pain laterality, unspecified chronicity M54.6 [facility] [address] [id number] [address] [place] [address] Jul, Anxiety F41.9 and Thoracic b ack pain, unspecified back pain laterality, unspecified chronicity M54.6 [facility] [address] [id number] [address] [place] [address] Jun, [facility] [address] [id number] [address] [place] [address] Jun, Thoracic back pain, unspecif ied back pain laterality, unspecified chronicity M54.6 [facility] [address] [id number] [address] [place] [address] Jun, [facility] [address] [id number] [address] [place] [address] Jun, Anxiety F41.9 and Thoracic b ack pain, unspecified back pain laterality, unspecified chronicity M54.6 [facility] [address] [id number] [address] [place] [address] Jun, [facility] [address] [id number] [address] [place] [address] May, [facility] [address] [id number] [address] [place] [address] May, Psychophysiologic insomnia F 51.04 [facility] [address] [id number] [address] [place] [address] 13 May, 2019 Other constipation K59.09 [facility] [address] [id number] [address] [place] [address] 11 May, 2019 Thoracic back pain, unspecif ied back pain laterality, unspecified chronicity M54.6 [facility] [address] [id number] [address] [place] [address] 06 May, 2019 Anxiety F41.9 and Thoracic b ack pain, unspecified back pain laterality, unspecified chronicity M54.6 [place] [address] [id number] [address] [place] [address] 06 May, 2019 [place] [address] [id number] [address] [place] [address] Apr, [place] [address] [id number] [address] [place] [address] Apr, [place] [address] [id number] [address] [place] [address] Apr, Psychophysiological insomnia F51.04 [place] [address] [address] [facility] [id number] [address] [place] [address] Apr, Thoracic back pain, unspecif ied back pain laterality, unspecified chronicity M54.6 [place] [address] [id number] [address] [place] [address] Apr, Thoracic back pain, unspecif ied back pain laterality, unspecified chronicity M54.6 [place] [address] [address] [facility] [id number] [address] [place] [address] Apr, Anxiety F41.9 [place] [address] [address] [facility] [id number] [address] [place] [address] Apr, Psychophysiological insomnia F51.04 [place] [address] [address] [facility] [id number] [address] [place] [address] Mar, Encounter for Medicare annua l wellness [...] both eyes, unspecified age-related cataract type H25.9 [facility] [address] [id number] [address] [place], [place] [address] Mar, Thoracic back pain, unspecif ied back pain laterality, unspecified chronicity M54.6 [facility] [address] [id number] [address] [place] [address] Mar, Psychophysiological insomnia F51.04 [facility] [address] [id number] [address] [place] [address] Mar, Thoracic back pain, unspecif ied back pain laterality, unspecified chronicity M54.6 and Anxiety F41.9 [place] [address] [id number] [address] [place] [address] Mar, Psychophysiological insomnia F51.04 [place] [address] [id number] [address] [place] [address] Mar, [facility] [address] [id number] [address] [place] [address] Mar, Psychophysiological insomnia F51.04 [place] [address] [id number] [address] [place] [address] Mar, [facility] [address] [id number] [address] [place] [address] Feb, [facility] [address] [id number] [address] [place] [address] Feb, Thoracic back pain, unspecif ied back pain laterality, unspecified chronicity M54.6 [place] [address] [id number] [address] [place], [place] [address] 14 Feb, 2019 Anxiety F41.9 and Thoracic b ack pain, unspecified back pain laterality, unspecified chronicity M54.6 [facility] [address] [id number] [address] [place] [address] 07 Feb, 2019 Insomnia G47.00 ; HTN (hyper tension) I10 and Constipation K59.00 [facility] [address] [id number] [address] [place] [address] Feb, [facility] [address] [id number] [address] [place] [address] Jan, Thoracic back pain, unspecif ied back pain laterality, unspecified chronicity M54.6 [facility] [address] [id number] [address] [place] [address] Jan, Anxiety F41.9 [facility] [address] [id number] [address] [place] [address] Jan, Anxiety F41.9 [facility] [address] [facility] [id number] [address] [place] [address] Jan, Anxiety F41.9 and Thoracic b ack pain, unspecified back pain laterality, unspecified chronicity M54.6 [facility] [address] [id number] [address] [place] [address] Jan, [facility] [address] [id number] [address] [place] [address] Jan, [facility] [address] [facility] [id number] [address] [place] [address] Dec, Thoracic back pain, unspecif ied back pain laterality, unspecified chronicity M54.6 [facility] [address] [id number] [address] [place] [address] Dec, Thoracic back pain, unspecif ied back pain laterality, unspecified chronicity M54.6 [facility] [address] [id number] [address] [place] [address] Nov, Thoracic back pain, unspecif ied back pain laterality, unspecified chronicity M54.6 [facility] [address] [facility] [id number] [address] [place] [address] Nov, Anxiety F41.9 and Thoracic b ack pain, unspecified back pain laterality, unspecified chronicity M54.6 [facility] [address] [id number] [address] [place] [address] Nov, [facility] [address] [id number] [address] [place] [address] Nov, [facility] [address] [id number] [address] [place] [address] Nov, [facility] [address] [id number] [address] [place] [address] Oct, Thoracic back pain, unspecif ied back pain laterality, unspecified chronicity M54.6 [facility] [address] [id number] [address] [place] [address] Oct, Anxiety F41.9 and Thoracic b ack pain, unspecified back pain laterality, unspecified chronicity M54.6 [facility] [address] [id number] [address] [place] [address] Oct, Schizophrenia, unspecified t ype F20.9 and Acute kidney injury N17.9 [facility] [address] [id number] [address] [place] [address] Oct, [facility] [address] [id number] [address] [place] [address] Oct, [facility] [address] [id number] [address] [place] [address] Oct, Thoracic back pain, unspecif ied back pain laterality, unspecified chronicity M54.6 [facility] [address] [id number] [address] [place] [address] Oct, [facility] [address] [id number] [address] [place] [address] Oct, [facility] [address] [id number] [address] [place] [address] Sep, Anxiety F41.9 [facility] [address] [id number] [address] [place] [address] Sep, [facility] [address] [id number] [address] [place] [address] Sep, Thoracic back pain, unspecif ied back pain laterality, unspecified chronicity M54.6 [facility] [address] [id number] [address] [place] [address] Sep, [facility] [address] [id number] [address] [place] [address] Sep, [facility] [address] [id number] [address] [place] [address] Sep, [facility] [address] [id number] [address] [place] [address] Sep, [facility] [address] [id number] [address] [place] [address] Sep, [facility] [address] [id number] [address] [place] [address] Sep, [facility] [address] [id number] [address] [place] [address] Sep, Chronic pain G89.29 ; Chroni c kidney disease, stage III (moderate) N18.3 ; Hyperlipidemia E78.5 and Insomnia G47.00 [facility] [address] [id number] [address] [place] [address] Sep, Thoracic back pain, unspecif ied back pain laterality, unspecified chronicity M54.6 [facility] [address] [id number] [address] [place] [address] August, Anxiety F41.9 [facility] [address] [facility] [id number] [address] [place] [address] August, Thoracic back pain, unspecif ied back pain laterality, unspecified chronicity M54.6 and Anxiety F41.9 [facility] [address] [facility] [id number] [address] [place] [address] August, 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 [facility] [address] [id number] [address] [place] [address] August, 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 [facility] [address] [id number] [address] [place] [address] August, [facility] [address] [id number] [address] [place] [address] August, [facility] [address] [id number] [address] [place] [address] August, Thoracic back pain, unspecif ied back pain laterality, unspecified chronicity M54.6 [facility] [address] [id number] [address] [place] [address] August, [facility] [address] [id number] [address] [place] [address] August, Anxiety F41.9 and Thoracic b ack pain, unspecified back pain laterality, unspecified chronicity M54.6 [facility] [address] [id number] [address] [place] [address] Jul, [facility] [address] [id number] [address] [place] [address] Jul, Thoracic back pain, unspecif ied back pain laterality, unspecified chronicity M54.6 [facility] [address] [id number] [address] [place] [address] Jun, Anxiety F41.9 and Thoracic b ack pain, unspecified back pain laterality, unspecified chronicity M54.6 [facility] [address] [id number] [address] [place] [address] Jun, Anxiety F41.9 and Thoracic b ack pain, unspecified back pain laterality, unspecified chronicity M54.6 [facility] [address] [id number] [address] [place] [address] Jun, Thoracic back pain, unspecif ied back pain laterality, unspecified chronicity M54.6 [facility] [address] [id number] [address] [place] [address] Jun, Anxiety F41.9 and Thoracic b ack pain, unspecified back pain laterality, unspecified chronicity M54.6 [facility] [address] [id number] [address] [place] [address] May, [facility] [address] [id number] [address] [place] [address] May, [facility] [address] [id number] [address] [place] [address] May, [facility] [address] [id number] [address] [place] [address] May, Anxiety F41.9 and Encounter for medication monitoring Z51.81 [facility] [address] [id number] [address] [place] [address] May, Anxiety F41.9 and Thoracic b ack pain, unspecified back pain laterality, unspecified chronicity M54.6 [facility] [address] [id number] [address] [place] [address] Apr, Hyperlipidemia 272.4 [facility] [address] [id number] [address] [place] [address] Apr, Chronic pain G89.29 ; Anxiet y F41.9 ; Cervical radiculopathy M54.12 and Vision loss H54.7 [facility] [address] [id number] [address] [place] [address] Apr, [facility] [address] [id number] [address] [place] [address] Apr, Anxiety F41.9 and Thoracic b ack pain, unspecified back pain laterality, unspecified chronicity M54.6 [facility] [address] [id number] [address] [place] [address] Mar, [facility] [address] [id number] [address] [place] [address] 10 Mar, 2018 Anxiety F41.9 and Thoracic b ack pain, unspecified back pain laterality, unspecified chronicity M54.6 [facility] [address] [id number] [address] [place] [address] 14 Feb, 2018 Anxiety F41.9 and Thoracic b ack pain, unspecified back pain laterality, unspecified chronicity M54.6 [facility] [address] [id number] [address] [place] [address] 07 Feb, 2018 Thoracic back pain, unspecif ied back pain laterality, unspecified chronicity M54.6 [facility] [address] [id number] [address] [place] [address] 29 Jan, 2018 [facility] [address] [id number] [address] [place] [address] Jan, Anxiety F41.9 and Thoracic b ack pain, unspecified back pain laterality, unspecified chronicity M54.6 [facility] [address] [id number] [address] [place] [address] 19 Dec, 2017 Diarrhea of presumed infecti ous origin R19.7 [facility] [address] [id number] [address] [place] [address] 19 Dec, 2017 Diarrhea of presumed infecti ous origin R19.7 [facility] [address] [id number] [address] [place] [address] 18 Dec, 2017 Thoracic back pain, unspecif ied back pain laterality, unspecified chronicity M54.6 [facility] [address] [id number] [address] [place] [address] 17 Dec, 2017 [facility] [address] [id number] [address] [place] [address] 17 Dec, 2017 Anxiety F41.9 and Thoracic b ack pain, unspecified back pain laterality, unspecified chronicity M54.6 [facility] [address] [id number] [address] [place] [address] Dec, Diarrhea of presumed infecti ous origin R19.7 [place] [address] [place] [id number] [address] [place] [address] Dec, [place] [address] [place] [id number] [address] [place] [address] Dec, Anxiety F41.9 and Thoracic b ack pain, unspecified back pain laterality, unspecified chronicity M54.6 [place] [address] [place] [id number] [address] [place] [address] Dec, Anxiety F41.9 and Thoracic b ack pain, unspecified back pain laterality, unspecified chronicity M54.6 [facility] [address] [place] [id number] Dec, Diarrhea of presumed infectious origin R 19.7 ; Anxiety F41.9 ; Thoracic back pain, unspecified back pain laterality, unspecified chronicity M54.6 and HTN (hypertension) I10 [place] [address] [place] [id number] [address] [place] [address] Dec, Anxiety F41.9 [facility] [address] [place] [id number] Dec, Anxiety F41.9 ; Diarrhea of presumed inf ectious origin R19.7 ; Generalized abdominal pain R10.84 and Localized edema R60.0 [place] [address] [place] [id number] [address] [place] [address] Nov, [facility] [employer] [address] [place] [id number] Nov, Anxiety F41.9 ; Urinary retention R33.9 ; Diarrhea of presumed infectious origin R19.7 ; Weakness R53.1 ; Acute kidney failure, unspecified N17.9 ; Chronic kidney disease, stage III (moderate) N18.3 and Thoracic back pain, unspecified back pain laterality, unspecified chronicity M54.6 [place] [address] [place] [id number] [address] [place] [address] Oct, Thoracic back pain, unspecif ied back pain laterality, unspecified chronicity M54.6 and Anxiety F41.9 [facility] [address] [id number] [address] [place] [address] Sep, Thoracic back pain, unspecif ied back pain laterality, unspecified chronicity M54.6 and Anxiety F41.9 [facility] [address] [facility] [id number] [address] [place] [address] Sep, Thoracic back pain, unspecif ied back pain laterality, unspecified chronicity M54.6 ; Anxiety F41.9 and Encounter for medication monitoring Z51.81 [place] [address] [facility] [id number] [address] [place] [address] August, [place] [address] [facility] [id number] [address] [place] [address] August, Thoracic back pain, unspecif ied back pain laterality, unspecified chronicity M54.6 and Anxiety F41.9 [place] [id number] [facility] [id number] [address] [place] [id number] August, Hyperlipidemia E78.5 and HTN (hypertension) I10 [place] [address] [address] [facility] [id number] [address] [place] [id number] August, [facility] [address] [facility] [id number] [address] [place] [id number] August, Medicare welcome exam Z00.00 ; Chronic kidney failure N18.9 ; Anxiety F41.9 ; Chronic pain G89.29 ; Insomnia G47.00 ; Hyperlipidemia E78.5 ; HTN (hypertension) I10 and Thoracic back pain, unspecified back pain laterality, unspecified chronicity M54.6 [facility] [address] [facility] [id number] [address] [place] [id number] Jul, [facility] [address] [id number] [address] [place] [phone] Jul, [facility] [address] [facility] [id number] [address] [place] [id number] Jul, [place] [address] [address] [facility] [id number] [address] [place] [id number] Jul, Anxiety F41.9 [place] [address] [address] [facility] [id number] [address] [place] [id number] Jul, Thoracic back pain, unspecif ied back pain laterality, unspecified chronicity M54.6 and Anxiety F41.9 [place] [address] [address] [place] [id number] [address] [place] [id number] Jun, Thoracic back pain, unspecif ied back pain laterality, unspecified chronicity M54.6 and Anxiety F41.9 [place] [address] [address] [facility] [id number] [place] [id number] May, Thoracic back pain, unspecif ied back pain laterality, unspecified chronicity M54.6 and Anxiety F41.9 [place] [address] [id number] Apr, Thoracic back pain, unspecif ied back pain laterality, unspecified chronicity M54.6 and Anxiety F41.9 [place] [address] [phone] Mar, [place] [address] [address] [place] [id number] [place] [id number] 14 Mar, 2017 Thoracic back pain, unspecif ied back pain laterality, unspecified chronicity M54.6 and Anxiety F41.9 [place] [address] [address] [facility] [id number] [address] [place] [phone] 14 Mar, 2017 Thoracic back pain, unspecif ied back pain laterality, unspecified chronicity M54.6 ; HTN (hypertension) I10 ; Hyperlipidemia E78.5 and Anxiety F41.9 [place] [address] [address] [facility] [id number] [address] [place] [address] [id number] Feb, Thoracic back pain, unspecif ied back pain laterality, unspecified chronicity M54.6 and Anxiety F41.9 [place] [id number] [facility] [id number] [address] [place] [address] Nov, [facility] [address] [address] Oct, [facility] [address] [place] [id number] [place] [address] Oct, Thoracic back pain, unspecif ied back pain laterality, unspecified chronicity M54.6 [facility] [address] [address] Oct, HTN (hypertension) I10 ; Con stipation K59.00 ; Hyperlipidemia E78.5 ; Thoracic back pain, unspecified back pain laterality, unspecified chronicity M54.6 ; Chronic pain G89.29 ; Anxiety F41.9 ; Chronic kidney failure N18.9 ; Environmental allergies Z91.09 ; Vitamin D deficiency E55.9 and Primary insomnia F51.01 [facility] [address] [place] [id number] [address] [place] [address] Sep, Anxiety F41.9 [facility] [address] [address] Sep, [facility] [address] [address] August, Anxiety F41.9 [facility] [address] [place] [id number] [address] [place] [address] August, [facility] [address] [address] Jul, Anxiety F41.9 [facility] [address] [place] [id number] [address] [place] [address] Jul, [facility] [address] [place] [id number] [address] [place] [address] Jun, Anxiety F41.9 [facility] [address] [address] Jun, [facility] [address] [facility] [id number] [address] [place] [address] May, [facility] [address] [facility] [id number] [address] [place] [address] May, [facility] [address] [facility] [id number] [address] [place] [address] May, [facility] [address] [facility] [id number] [address] [place] [address] Apr, [facility] [address] [facility] [id number] [address] [place] [address] Apr, [facility] [address] [place] [id number] [place] [address] Apr, Anxiety F41.9 [facility] [address] [address] Apr, Anxiety F41.9 [facility] [address] [facility] [id number] [address] [place] [address] Apr, [facility] [address] [place] [id number] [place] [address] Mar, HTN (hypertension) I10 ; Phillip mor R25.1 ; Hypercholesterolemia E78.0 ; Constipation K59.00 ; Chronic pain G89.29 ; Hyperlipidemia E78.5 ; Insomnia G47.00 ; Anxiety F41.9 and Thoracic back pain, unspecified back pain laterality, unspecified chronicity M54.6 [facility] [address] [facility] [id number] [address] [place] [address] Mar, Tremor R25.1 ; HTN (hyperten stas) I10 ; Hypercholesterolemia E78.0 ; Constipation K59.00 ; Chronic pain G89.29 ; Hyperlipidemia E78.5 ; Insomnia G47.00 ; Anxiety F41.9 and Thoracic back pain, unspecified back pain laterality, unspecified chronicity M54.6 [facility] [address] [facility] [id number] [address] [place] [address] 07 Mar, 2016 [facility] [address] [id number] [address] [place] [address], [place] [address] 02 Mar, 2016 [facility] [address] [id number] [address] [place] [address], [place] [address] Feb, [facility] [address] [id number] [address] [place] [address], [place] [address] Jan, [facility] [address] [id number] [address] [place] [address], [place] [address] Jan, [facility] [address] [id number] [address] [place] [address], [place] [address] 15 Dec, 2015 [facility] [address] [id number] [address] [place] [address], [place] [address] Nov, [facility] [address] [id number] [address] [place] [address], [place] [address] Nov, [facility] [address] [id number] [address] [place] [address], [place] [address] Oct, Anxiety F41.9 [facility] [address] [id number] [address] [place] [address] Oct, Chronic pain G89.29 [facility] [address] [id number] [address] [place] [address] 24 Sep, 2015 [facility] [address] [id number] [address] [place] [address] Sep, [facility] [address] [id number] [address] [place] [address] Sep, [facility] [address] [id number] [address] [place] [address] 17 Sep, 2015 [facility] [address] [id number] [address] [place] [address] 16 Sep, 2015 Chronic pain syndrome G89.4 [facility] [address] [id number] [address] [place] [address] Sep, HTN (hypertension) I10 ; Chr onic pain G89.29 ; Hypercholesterolemia E78.0 ; Chronic kidney failure N18.9 ; Constipation, unspecified constipation type K59.00 ; Anxiety F41.9 and Thoracic back pain, unspecified back pain laterality, unspecified chronicity M54.6 [facility] [address] [facility] [id number] [address] [place] [address] August, Chronic pain syndrome G89.4 [facility] [address] [facility] [id number] [address] [place] [address] August, Chronic pain syndrome G89.4 [facility] [address] [facility] [id number] [address] [place] [address] Jul, Anxiety disorder, unspecifie d F41.9 and Chronic pain syndrome G89.4 [facility] [address] [facility] [id number] [address] [place] [address] Jul, Insomnia, unspecified G47.00 and Chronic pain syndrome G89.4 [facility] [address] [facility] [id number] [address] [place] [address] Jul, Allergic rhinitis J30.9 [facility] [address] [facility] [id number] [address] [place] [address] Jul, Constipation, unspecified K5 9.00 [facility] [address] [facility] [id number] [address] [place] [address] Jul, [facility] [address] [facility] [id number] [address] [place] [address] Jun, [facility] [address] [facility] [id number] [address] [place] [address] Jun, [facility] [address] [facility] [id number] [address] [place] [address] Jun, [facility] [address] [facility] [id number] [address] [place] [address] Jun, [facility] [address] [facility] [id number] [address] [place] [address] Jun, [facility] [address] [facility] [id number] [address] [place] [address] Jun, [facility] [address] [facility] [id number] [address] [place] [address] May, [facility] [address] [facility] [id number] [address] [place] [address] May, [facility] [address] [facility] [id number] [address] [place] [address] May, Anxiety F41.9 ; Insomnia G47 .00 ; Hyperlipidemia E78.5 ; Chronic pain G89.29 ; HTN (hypertension) I10 ; Environmental allergies V15.09 and Constipation 564.00 [facility] [address] [facility] [id number] [address] [place] [address] Apr, [facility] [address] [facility] [id number] [address] [place] [address] Apr, [facility] [address] [facility] [id number] [address] [place] [address] Apr, [facility] [address] [facility] [id number] [address] [place] [address] Mar, [facility] [address] [facility] [id number] [address] [place] [address] Mar, [facility] [address] [facility] [id number] [address] [place] [address] Mar, [facility] [address] [facility] [id number] [address] [place] [address] Feb, [facility] [address] [facility] [id number] [address] [place] [address] Feb, [facility] [address] [facility] [id number] [address] [place] [address] Feb, [facility] [address] [facility] [id number] [address] [place] [address] Jan, HTN (hypertension) I10 ; Con stipation K59.00 ; Chronic pain G89.29 ; Hyperlipidemia E78.5 ; Hypercholesterolemia E78.0 ; Insomnia G47.00 and Anxiety F41.9 [facility] [address] [place] [id number] [address] [place] [address] Jan, [address] [address] Dec, [facility] [address] [place] [address] Nov, [address] [address] Oct, Chronic kidney disease, unsp ecified 585.9 ; Chronic pain syndrome 338.4 ; Hyperlipidemia 272.4 and Essential hypertension 401.[address] [address] Oct, Chronic kidney disease 585.[address] [address] Oct, [address] [address] Oct, Chronic kidney disease, unsp ecified 585.9 ; Hypercalcemia 275.42 ; Hyperlipidemia 272.4 ; Essential hypertension 401.9 ; Chronic pain syndrome 338.4 ; Insomnia 780.52 ; Constipation 564.00 ; Environmental allergies V15.09 and Anxiety 300.00 [facility] [address] [place] [id number] [address] [place] [address] Oct, Chronic kidney disease 585.[address] [address] Oct, [facility] [address] [place] [id number] [address] [place] [address] Oct, Chronic kidney disease 585.9 and Hyperlipidemia 272.[address] [id number] [address] [place] [address], [place] [address] 10 Oct, 2014 [facility] [address] [id number] [address] [place] [address], [place] [address] 10 Oct, 2014 [facility] [address] [id number] [address] [place] [address], [place] [address] 18 Sep, 2014 [facility] [address] [id number] [address] [place] [address], [place] [address] 15 Sep, 2014 [facility] [address] [id number] [address] [place] [address], [place] [address] 15 Sep, 2014 Chronic kidney disease 585.9 and Hyperlipidemia 272.4 [facility] [address] [id number] [address] [place] [address], [place] [address] Sep, [facility] [address] [id number] [address] [place] [address], [place] [address] August, [facility] [address] [id number] [address] [place] [phone] August, [facility] [address] [id number] [address] [place] [address], [place] [address] 14 Jul, 2014 [facility] [address] [id number] [address] [place] [address], [place] [address] Jul, [facility] [address] [id number] [address] [place] [address], [place] [address] Jun, [facility] [address] [id number] [address] [place] [address] 20 Jun, 2014 [facility] [address] [id number] [address] [place] [address], [place] [address] 16 Jun, 2014 [facility] [address] [id number] [address] [place] [address], [place] [address] 16 Jun, 2014 [facility] [address] [id number] [address] [place] [address], [place] [address] 09 Jun, 2014 [facility] [address] [id number] [address] [place] [address], [place] [address] Jun, [facility] [address] [id number] [address] [place] [address], [place] [address] Jun, [facility] [address] [id number] [address] [place] [address], [place] [address] Jun, [facility] [address] [id number] [address] [place] [address], [place] [address] May, [facility] [address] [id number] [address] [place] [address], [place] [address] May, [facility] [address] [id number] [address] [place] [address], [place] [address] May, [facility] [address] [id number] [address] [place] [address], [place] [address] May, [facility] [address] [id number] [address] [place] [address], [place] [address] Apr, [facility] [address] [id number] [address] [place] [address], [place] [address] Apr, [facility] [address] [id number] [address] [place] [address], [place] [address] Apr, [facility] [address] [id number] [address] [place] [address], [place] [address] Apr, [facility] [address] [id number] [address] [place] [address], [place] [address] Apr, [facility] [address] [id number] [address] [place] [address], [place] [address] Apr, [facility] [address] [id number] [address] [place] [address], [place] [address] Apr, [facility] [address] [id number] [address] [place] [address], [place] [address] Apr, [facility] [address] [id number] [address] [place] [address], [place] [address] Apr, [facility] [address] [id number] [address] [place] [address], [place] [address] Apr, [facility] [address] [id number] [address] [place] [address], [place] [address] Apr, [facility] [address] [id number] [address] [place] [address], [place] [address] Mar, [facility] [address] [id number] [address] [place] [address], [place] [address] Mar, [facility] [address] [id number] [address] [place] [address], [place] [address] Feb, [facility] [address] [id number] [address] [place] [address], [place] [address] Feb, [facility] [address] [id number] [address] [place] [address], [place] [address] Feb, [facility] [address] [id number] [address] [place] [address], [place] [address] Feb, [facility] [address] [id number] [address] [place] [address], [place] [address] Feb, [facility] [address] [id number] [address] [place] [address], [place] [address] Feb, [facility] [address] [id number] [address] [place] [address], [place] [address] Feb, [facility] [address] [id number] [address] [place] [address] Feb, [facility] [address] [id number] [address] [place] [address], [place] [address] Feb, [facility] [address] [id number] [address] [place] [address], [place] [address] Feb, [facility] [address] [id number] [address] [place] [address], [place] [address] Jan, [facility] [address] [id number] [address] [place] [address] Jan, [facility] [address] [id number] [address] [place] [address], [place] [address] Jan, [facility] [address] [id number] [address] [place] [address] Jan, [facility] [address] [id number] [address] [place] [address], [place] [address] Jan, [facility] [address] [id number] [address] [place] [address], [place] [address] 24 Jan, 2014 [facility] [address] [id number] [address] [place] [address], [place] [address] Jan, [facility] [address] [id number] [address] [place] [address], [place] [address] 17 Jan, 2014 [facility] [address] [id number] [address] [place] [address], [place] [address] 16 Jan, 2014 [facility] [address] [id number] [address] [place] [address], [place] [address] Jan, [facility] [address] [id number] [address] [place] [address], [place] [address] 06 Jan, 2014 [facility] [address] [id number] [address] [place] [address], [place] [address] 26 Dec, 2013 [facility] [address] [id number] [address] [place] [address] 26 Dec, 2013 [facility] [address] [id number] [address] [place] [address] 19 Dec, 2013 [facility] [address] [id number] [address] [place] [address], [place] [address] 19 Dec, 2013 [facility] [address] [id number] [address] [place] [address], [place] [address] 18 Dec, 2013 [facility] [address] [id number] [address] [place] [address], [place] [address] 18 Dec, 2013 [facility] [address] [id number] [address] [place] [address], [place] [address] Dec, 2013 [facility] [address] [id number] [address] [place] [address], [place] [address] Dec, [facility] [address] [id number] [address] [place] [address], [place] [address] Nov, [facility] [address] [id number] [address] [place] [address], [place] [address] Nov, [facility] [address] [id number] [address] [place] [address], [place] [address] Nov, [facility] [address] [id number] [address] [place] [address], [place] [address] Nov, [facility] [address] [id number] [address] [place] [address], [place] [address] Nov, [facility] [address] [id number] [address] [place] [address], [place] [address] Nov, [facility] [address] [id number] [address] [place] [address], [place] [address] Nov, [facility] [address] [id number] [address] [place] [address], [place] [address] Nov, [facility] [address] [id number] [address] [place] [address], [place] [address] Oct, [facility] [address] [id number] [address] [place] [address], [place] [address] Oct, [facility] [address] [id number] [address] [place] [address], [place] [address] Oct, [facility] [address] [id number] [address] [place] [address], [place] [address] Oct, [facility] [address] [id number] [address] [place] [address], [place] [address] Sep, [facility] [address] [id number] [address] [place] [address], [place] [address] Sep, [facility] [address] [id number] [facility] [place] [address] Sep, [facility] [address] [id number] [address] [place] [address], [place] [address] Sep, [facility] [address] [id number] [address] [place] [address], [place] [address] Sep, [facility] [address] [id number] [address] [place] [address], [place] [address] Sep, [facility] [address] [id number] [address] [place] [address], [place] [address] Sep, [facility] [address] [id number] [address] [place] [address], [place] [address] Sep, [facility] [address] [id number] [address] [place] [address], [place] [address] August, [facility] [address] [id number] [address] [place] [address], [place] [address] August, [facility] [address] [id number] [address] [place] [address], [place] [address] August, [facility] [address] [id number] [address] [place] [address], [place] [address] August, [facility] [address] [id number] [address] [place] [address], [place] [address] August, [facility] [address] [id number] [address] [place] [address], [place] [address] August, [facility] [address] [id number] [address] [place] [address], [place] [address] August, [facility] [address] [id number] [address] [place] [address], [place] [address] August, [facility] [address] [id number] [address] [place] [address], [place] [address] August, [facility] [address] [id number] [address] [place] [address], [place] [address] August, [facility] [address] [id number] [facility] [place] [address] Jul, [facility] [address] [id number] [address] [place] [address], [place] [address] Jul, [facility] [address] [id number] [address] [place] [address], [place] [address] Jul, [facility] [address] [id number] [address] [place] [address], [place] [address] Jul, [facility] [address] [id number] [address] [place] [address], [place] [address] Jul, [facility] [address] [id number] [address] [place] [address], [place] [address] Jul, [facility] [address] [id number] [address] [place] [address], [place] [address] Jul, [facility] [address] [id number] [address] [place] [address], [place] [address] Jul, [facility] [address] [id number] [address] [place] [address], [place] [address] Jun, [facility] [address] [id number] [address] [place] [address], [place] [address] Jun, [facility] [address] [id number] [address] [place] [address], [place] [address] Jun, [facility] [address] [id number] [address] [place] [address], [place] [address] Jun, [facility] [address] [id number] [address] [place] [address], [place] [address] Jun, [facility] [address] [id number] [address] [place] [address], [place] [address] Jun, [facility] [address] [id number] [address] [place] [address], [place] [address] May, [facility] [address] [id number] [address] [place] [address], [place] [address] May, [facility] [address] [id number] [address] [place] [address], [place] [address] May, [facility] [address] [id number] [address] [place] [address], [place] [address] May, [facility] [address] [id number] [address] [place] [address], [place] [address] May, [facility] [address] [id number] [address] [place] [address], [place] [address] May, [facility] [address] [id number] [address] [place] [address], [place] [id number] May, [facility] [address] [id number] [address] [place] [address], [place] [address] Apr, [facility] [address] [id number] [address] [place] [address], [place] [address] Apr, [facility] [address] [id number] [address] [place] [address], [place] [address] Apr, [facility] [address] [id number] [address] [place] [address], [place] [address] Apr, [facility] [address] [id number] [address] [place] [address], [place] [address] Apr, [facility] [address] [id number] [address] [place] [address], [place] [address] Apr, [facility] [address] [id number] [address] [place] [address], [place] [address] Mar, [facility] [address] [id number] [address] [place] [address], [place] [address] Mar, [facility] [address] [id number] [address] [place] [address], [place] [address] Mar, [facility] [address] [id number] [address] [place] [address], [place] [address] 23 Mar, 2013 [facility] [address] [id number] [address] [place] [address], [place] [address] Mar, [facility] [address] [id number] [address] [place] [address], [place] [address] 19 Mar, 2013 [facility] [address] [id number] [address] [place] [address], [place] [address] 16 Mar, 2013 [facility] [address] [id number] [address] [place] [address], [place] [address] 16 Mar, 2013 [facility] [address] [id number] [address] [place] [address], [place] [address] Mar, [facility] [address] [id number] [address] [place] [address], [place] [address] Mar, [facility] [address] [id number] [address] [place] [address], [place] [address] Feb, [facility] [address] [id number] [address] [place] [address], [place] [address] Feb, [facility] [address] [id number] [address] [place] [address], [place] [address] Feb, [facility] [address] [id number] [address] [place] [address], [place] [address] Feb, [facility] [address] [id number] [address] [place] [address], [place] [address] 14 Feb, 2013 [facility] [address] [id number] [address] [place] [address], [place] [address] 14 Feb, 2013 [facility] [address] [id number] [address] [place] [address], [place] [address] 11 Feb, 2013 [facility] [address] [id number] [address] [place] [address], [place] [address] Feb, [facility] [address] [id number] [address] [place] [address], [place] [address] 08 Feb, 2013 [facility] [address] [id number] [address] [place] [address], [place] [address] Feb, [facility] [address] [id number] [address] [place] [address], [place] [address] Jan, [facility] [address] [id number] [address] [place] [address], [place] [address] Jan, [facility] [address] [id number] [address] [place] [address], [place] [address] Jan, [facility] [address] [id number] [address] [place] [address], [place] [address] Jan, [facility] [address] [id number] [address] [place] [address], [place] [address] Jan, [facility] [address] [id number] [address] [place] [address], [place] [address] Jan, [facility] [address] [id number] [address] [place] [address], [place] [address] Jan, [facility] [address] [id number] [address] [place] [address], [place] [address] Jan, [facility] [address] [id number] [address] [place] [address], [place] [address] Jan, [facility] [address] [id number] [address] [place] [address], [place] [address] Dec, [facility] [address] [id number] [address] [place] [address], [place] [address] 23 Dec, 2012 [facility] [address] [id number] [address] [place] [address], [place] [address] 21 Dec, 2012 [facility] [address] [id number] [address] [place] [address], [place] [address] 13 Dec, 2012 [facility] [address] [id number] [address] [place] [address], [place] [address] Nov, [facility] [address] [id number] [address] [place] [address], [place] [address] Nov, [facility] [address] [id number] [facility] [place] [address] Nov, [facility] [address] [id number] [address] [place] [address], [place] [address] Nov, [facility] [address] [id number] [address] [place] [address], [place] [address] Nov, [facility] [address] [id number] [address] [place] [address], [place] [address] Nov, [facility] [address] [id number] [address] [place] [address], [place] [address] Oct, [facility] [address] [id number] [address] [place] [address], [place] [address] Oct, [facility] [address] [id number] [address] [place] [address], [place] [address] Oct, [facility] [address] [id number] [address] [place] [address], [place] [address] Oct, [facility] [address] [id number] [address] [place] [address], [place] [address] Sep, [facility] [address] [id number] [address] [place] [address], [place] [address] Sep, [facility] [address] [id number] [address] [place] [address], [place] [address] Sep, [facility] [address] [id number] [address] [place] [address], [place] [address] Sep, [facility] [address] [id number] [address] [place] [address], [place] [address] Sep, [facility] [address] [id number] [address] [place] [address], [place] [address] August, [facility] [address] [id number] [address] [place] [address], [place] [address] August, [facility] [address] [id number] [address] [place] [address], [place] [address] 19 Jul, 2012 [facility] [address] [id number] [address] [place] [address], [place] [address] 19 Jul, 2012 [facility] [address] [id number] [address] [place] [address], [place] [address] 15 Jul, 2012 [facility] [address] [id number] [address] [place] [address], [place] [address] 09 Jul, 2012 [facility] [address] [id number] [address] [place] [address], [place] [address] 08 Jul, 2012 [facility] [address] [id number] [address] [place] [address], [place] [address] 26 Jun, 2012 [facility] [address] [id number] [address] [place] [address], [place] [address] Jun, [facility] [address] [id number] [address] [place] [address], [place] [address] 15 Jun, 2012 [facility] [address] [id number] [address] [place] [address], [place] [address] 06 Jun, 2012 [facility] [address] [id number] [address] [place] [address], [place] [address] Jun, [facility] [address] [id number] [address] [place] [address], [place] [address] 28 May, 2012 [facility] [address] [id number] [address] [place] [address], [place] [address] 27 May, 2012 [facility] [address] [id number] [address] [place] [address], [place] [address] 25 May, 2012 [facility] [address] [id number] [address] [place] [address], [place] [address] 21 May, 2012 [facility] [address] [id number] [address] [place] [address], [place] [address] 20 May, 2012 [facility] [address] [id number] [address] [place] [address], [place] [address] 14 May, 2012 [facility] [address] [id number] [address] [place] [address], [place] [address] 13 May, 2012 [facility] [address] [id number] [address] [place] [address], [place] [address] 08 May, 2012 [facility] [address] [id number] [address] [place] [address], [place] [address] 04 May, 2012 [facility] [address] [id number] [address] [place] [address], [place] [address] Apr, [facility] [address] [id number] [address] [place] [address], [place] [address] Apr, [facility] [address] [id number] [address] [place] [address], [place] [address] Apr, [facility] [address] [id number] [address] [place] [address], [place] [address] Apr, [facility] [address] [id number] [address] [place] [address], [place] [address] Apr, [facility] [address] [id number] [address] [place] [address], [place] [address] Mar, [facility] [address] [id number] [address] [place] [address], [place] [address] Mar, [facility] [address] [id number] [address] [place] [address], [place] [address] Mar, [facility] [address] [id number] [address] [place] [address], [place] [address] Mar, [facility] [address] [id number] [address] [place] [address], [place] [address] Mar, [facility] [address] [id number] [address] [place] [address], [place] [address] Mar, [facility] [address] [id number] [address] [place] [address], [place] [address] Mar, [facility] [address] [id number] [address] [place] [address], [place] [address] 17 Mar, 2012 [facility] [address] [id number] [address] [place] [address], [place] [address] 07 Mar, 2012 [facility] [address] [id number] [address] [place] [address], [place] [address] Mar, [facility] [address] [id number] [address] [place] [address], [place] [address] 30 Feb, 2012 [facility] [address] [id number] [address] [place] [address], [place] [address] 30 Feb, 2012 [facility] [address] [id number] [address] [place] [address], [place] [address] 29 Feb, 2012 [facility] [address] [id number] [address] [place] [address], [place] [address] Feb, [facility] [address] [id number] [address] [place] [address], [place] [address] Feb, [facility] [address] [id number] [address] [place] [address], [place] [address] 23 Feb, 2012 [facility] [address] [id number] [address] [place] [address], [place] [address] Feb, [facility] [address] [id number] [address] [place] [address], [place] [address] 20 Feb, 2012 [facility] [address] [id number] [address] [place] [address], [place] [address] 16 Feb, 2012 [facility] [address] [id number] [address] [place] [address], [place] [address] 16 Feb, 2012 [facility] [address] [id number] [address] [place] [address], [place] [address] 13 Feb, 2012 [facility] [address] [id number] [address] [place] [address], [place] [address] 13 Feb, 2012 [facility] [address] [id number] [address] [place] [address], [place] [address] Feb, [facility] [address] [id number] [address] [place] [address], [place] [address] Feb, [facility] [address] [id number] [address] [place] [address], [place] [address] Feb, [facility] [address] [id number] [address] [place] [address], [place] [address] Feb, [facility] [address] [id number] [address] [place] [address], [place] [address] Feb, [facility] [address] [id number] [address] [place] [address], [place] [address] Feb, [facility] [address] [id number] [address] [place] [address], [place] [address] Jan, [facility] [address] [id number] [address] [place] [address], [place] [address] Jan, [facility] [address] [id number] [address] [place] [address] Jan, [facility] [address] [id number] [address] [place] [address] Jan, [facility] [address] [id number] [address] [place] [address] Jan, [facility] [address] [id number] [address] [place] [address] Jan, [facility] [address] [id number] [address] [place] [address] Jan, [facility] [address] [id number] [address] [place] [address] Jan, [facility] [address] [id number] [address] [place] [address] Jan, [facility] [address] [id number] [address] [place] [address] Jan, [facility] [address] [id number] [address] [place] [id number] 24 Dec, 2011 [facility] [address] [id number] [address] [place] [address], [place] [address] 18 Dec, 2011 [facility] [address] [id number] [address] [place] [address], [place] [address] Dec, [facility] [address] [id number] [address] [place] [address], [place] [address] Dec, [facility] [address] [id number] [address] [place] [address], [place] [address] Nov, [facility] [address] [id number] [address] [place] [address], [place] [address] Nov, [facility] [address] [id number] [address] [place] [address], [place] [address] Nov, [facility] [address] [id number] [address] [place] [address], [place] [address] Nov, [facility] [address] [id number] [address] [place] [address], [place] [address] Nov, [facility] [address] [id number] [address] [place] [address], [place] [address] Nov, [facility] [address] [id number] [address] [place] [address], [place] [address] Oct, [facility] [address] [id number] [address] [place] [address], [place] [address] Oct, [facility] [address] [id number] [address] [place] [address], [place] [address] Oct, [facility] [address] [id number] [address] [place] [address], [place] [address] Oct, [facility] [address] [id number] [address] [place] [address], [place] [address] Oct, [facility] [address] [id number] [address] [place] [address], [place] [address] Sep, [facility] [address] [id number] [address] [place] [address], [place] [address] 20 Sep, 2011 [facility] [address] [id number] [address] [place] [address], [place] [address] Sep, [facility] [address] [id number] [address] [place] [address], [place] [address] 07 Sep, 2011 [facility] [address] [id number] [address] [place] [address], [place] [address] 05 Sep, 2011 [facility] [address] [id number] [address] [place] [address], [place] [address] August, [facility] [address] [id number] [address] [place] [address], [place] [address] August, [facility] [address] [id number] [address] [place] [address], [place] [address] August, [facility] [address] [id number] [address] [place] [address], [place] [address] August, [facility] [address] [id number] [address] [place] [address], [place] [address] 27 Jul, 2011 [facility] [address] [id number] [address] [place] [address], [place] [address] 24 Jul, 2011 [facility] [address] [id number] [address] [place] [address], [place] [address] Jul, [facility] [address] [id number] [address] [place] [address], [place] [address] 18 Jul, 2011 [facility] [address] [id number] [address] [place] [address], [place] [address] 18 Jul, 2011 [facility] [address] [id number] [address] [place] [address], [place] [address] 12 Jul, 2011 [facility] [address] [id number] [address] [place] [address], [place] [address] 11 Jul, 2011 [facility] [address] [id number] [address] [place] [address], [place] [address] Jul, [facility] [address] [id number] [facility] [place] [place] [address] Jul, [facility] [address] [id number] [address] [place] [address], [place] [address] Jul, [facility] [address] [id number] [address] [place] [address], [place] [address] Jul, [facility] [address] [id number] [address] [place] [address], [place] [address] Jul, [facility] [address] [id number] [address] [place] [address], [place] [address] Jul, [facility] [address] [id number] [address] [place] [address], [place] [address] Jul, [facility] [address] [id number] [address] [place] [address], [place] [address] Jun, [facility] [address] [id number] [address] [place] [address], [place] [address] Jun, [facility] [address] [id number] [address] [place] [address], [place] [id number] Jun, [facility] [address] [id number] [address] [place] [address], [place] [address] Jun, [facility] [address] [id number] [address] [place] [address], [place] [address] May, [facility] [address] [id number] [address] [place] [address], [place] [address] May, [facility] [address] [id number] [address] [place] [address], [place] [address] May, [facility] [address] [id number] [address] [place] [address], [place] [address] Apr, [facility] [address] [id number] [address] [place] [address], [place] [address] Apr, [facility] [address] [id number] [address] [place] [address], [place] [address] 13 Apr, 2011 [facility] [address] [id number] [address] [place] [address], [place] [address] 11 Apr, 2011 [facility] [address] [id number] [address] [place] [address], [place] [address] 09 Apr, 2011 [facility] [address] [id number] [address] [place] [address], [place] [address] 27 Mar, 2011 [facility] [address] [id number] [address] [place] [address], [place] [address] Mar, [facility] [address] [id number] [address] [place] [address], [place] [address] Mar, [facility] [address] [id number] [address] [place] [address], [place] [address] Mar, [facility] [address] [id number] [address] [place] [address], [place] [address] 16 Mar, 2011 [facility] [address] [id number] [address] [place] [address], [place] [address] Mar, [facility] [address] [id number] [address] [place] [address], [place] [address] 05 Mar, 2011 [facility] [address] [id number] [address] [place] [address], [place] [address] 29 Feb, 2011 [facility] [address] [id number] [address] [place] [address], [place] [address] 25 Feb, 2011 [facility] [address] [id number] [address] [place] [address], [place] [address] Feb, [facility] [address] [id number] [address] [place] [address], [place] [address] Feb, [facility] [address] [id number] [address] [place] [address], [place] [address] 16 Feb, 2011 [facility] [address] [id number] [address] [place] [address], [place] [address] 14 Feb, 2011 [facility] [address] [id number] [address] [place] [address], [place] [address] 10 Feb, 2011 [facility] [address] [id number] [address] [place] [address], [place] [address] 31 Jan, 2011 [facility] [address] [id number] [address] [place] [address], [place] [address] 31 Jan, 2011 [facility] [address] [id number] [address] [place] [address], [place] [address] 31 Jan, 2011 [facility] [address] [id number] [address] [place] [address], [place] [address] 18 Jan, 2011 [facility] [address] [id number] [address] [place] [address], [place] [address] 17 Jan, 2011 [facility] [address] [id number] [address] [place] [address], [place] [address] 17 Jan, 2011 [facility] [address] [id number] [address] [place] [address], [place] [address] 17 Jun, 2010 [facility] [address] [id number] [address] [place] [address], [place] [address] 30 Mar, 2010 [facility] [address] [id number] [address] [place] [address], [place] [address] 20 Mar, 2010 [facility] [address] [id number] [address] [place] [address], [place] [address] 14 Mar, 2010 [facility] [address] [id number] [address] [place] [address], [place] [address] 14 Mar, 2010 [facility] [address] [id number] [address] [place] [address], [place] [address] 13 Mar, 2010 [facility] [address] [id number] [address] [place] [address], [place] [address] 07 Mar, 2010 [facility] [address] [id number] [address] [place] [address], [place] [address] 02 Mar, 2010 [facility] [address] [id number] [address] [place] [id number] Mar, [facility] [address] [id number] [address] [place] [address], [place] [address] 30 Feb, 2010 [facility] [address] [id number] [address] [place] [address], [place] [address] Feb, [facility] [address] [id number] [address] [place] [address], [place] [address] Feb, [facility] [address] [id number] [address] [place] [address], [place] [address] Feb, [facility] [address] [id number] [address] [place] [address], [place] [address] 16 Feb, 2010 [facility] [address] [id number] [address] [place] [address], [place] [address] Feb, [facility] [address] [id number] [address] [place] [address], [place] [id number] Feb, [facility] [address] [id number] [address] [place] [address], [place] [id number] Feb, [facility] [address] [id number] [address] [place] [address], [place] [id number] Jan, [facility] [address] [id number] [address] [place] [address], [place] [id number] Jan, [facility] [address] [id number] [address] [place] [id number] Jan, [facility] [address] [id number] [address] [place] [id number] Jan, [facility] [address] [id number] [address] [place] [address], [place] [id number] Mar, [facility] [address] [id number] [address] [place] [address], [place] [id number] Mar, [facility] [address] [id number] [address] [place] [address], [place] [id number] Mar, [facility] [address] [id number] [address] [place] [id number] Mar, [facility] [address] [id number] [address] [place] [id number] 14 Mar, 2009 [facility] [address] [id number] [address] [place] [id number] Mar, [facility] [address] [id number] [address] [place] [id number] Feb, [facility] [address] [id number] [address] [place] [id number] Feb, [facility] [address] [id number] [address] [place] [phone] Jan, [facility] [address] [id number] [address] [place] [id number] Sep, [facility] [address] [facility] [id number] [address] [place] [id number] May, IMMUNIZATIONS No Known Immunizations SOCIAL HISTORY [...] Surgical History Left ear surgery Hospitalization History [facility] in [place]- Spontane ous Pneumothorax Hospitalization History [facility]- Colon resection Hospitalization History [facility] - diarrhea/ couldnt urin ate nov 2017 Hospitalization History pain /hip to foot right side 10/16/19 19
--- OUTSIDE RECORDS SUMMARY | 2019-08-28 08:48 | XMS REPORT ---
Author Author Dixon Lundberg Doctor Organization [facility] Address Unknown Phone Unavailable Care Team Providers Care Sql Developer Name Role Phone Migration, Doctor Unavailable Unavailable PROBLEMS Type Condition ICD9-CM Code NFM49-TB Code Onset Dates Condition S tatus SNOMED Code Problem Insomnia G47.00 Active 955544317 Problem Anxiety F41.9 Active 25777113 Problem HTN (hypertension) I10 Active 3 5614584 Problem Chronic pain G89.29 Active 3026560 1 Problem Constipation K59.00 Active 6312099 8 Problem Thoracic back pain, unspecif ied back pain laterality, unspecified chronicity M54.6 Active 336441695 Problem Hyperlipidemia E78.5 Active 06123 004 Problem Vitamin D deficiency E55.9 Active 82530775 Problem Chronic kidney disease, stage III (moderate) N18.3 Active 243839042 Problem Vision loss H54.7 Active 05033679 1 Problem Age-related cataract of both eyes, unspecified age-related cataract type H25.9 Active 93874837 Problem Primary insomnia F51.01 Active 397 2004 Problem Psychophysiologic insomnia F51.04 Act saúl 685348794 Problem Environmental allergies Z91.09 Active 956871576 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 94559706 Problem Schizophrenia, unspecified type F20.9 Active 14204000 Problem Psychophysiological insomnia F51.04 A ctive 843108135 Problem Psychophysiological insomnia F51.04 A ctive 149031201 ALLERGIES No Information ENCOUNTERS Encounter Location Date Diagnosis [facility] [place] [address] [facility] [id number] [address] [place] [address] Jul, [facility] [place] [address] [facility] [id number] [address] [place] [address] Jul, [facility] [place] [address] [facility] [id number] [address] [place] [address] Jul, [facility] [place] [address] [facility] [id number] [address] [place] [address] Jul, Thoracic back pain, unspecif ied back pain laterality, unspecified chronicity M54.6 [place] [address] [id number] [address] [place] [address] Jul, Anxiety F41.9 and Thoracic b ack pain, unspecified back pain laterality, unspecified chronicity M54.6 [facility] [place] [address] [id number] [address] [place] [id number] Jun, [facility] [place] [address] [id number] [address] [place] [address] Jun, Thoracic back pain, unspecif ied back pain laterality, unspecified chronicity M54.6 [place] [address] [id number] [address] [place] [address] Jun, [place] [address] [id number] [address] [place] [address] Jun, Anxiety F41.9 and Thoracic b ack pain, unspecified back pain laterality, unspecified chronicity M54.6 [place] [address] [id number] [address] [place] [address] Jun, [place] [address] [id number] [address] [place] [address] May, [place] [address] [id number] [address] [place] [address] May, Psychophysiologic insomnia F 51.04 [place] [address] [id number] [address] [place] [address] 13 May, 2019 Other constipation K59.09 [place] [address] [id number] [address] [place] [address] 11 May, 2019 Thoracic back pain, unspecif ied back pain laterality, unspecified chronicity M54.6 [facility] [place] [address] [id number] [address] [place] [address] 06 May, 2019 Anxiety F41.9 and Thoracic b ack pain, unspecified back pain laterality, unspecified chronicity M54.6 [place] [address] [facility] [id number] [address] [place] [address] May, [place] [address] [facility] [id number] [address] [place] [address] Apr, [place] [address] [facility] [id number] [address] [place] [address] Apr, [place] [address] [facility] [id number] [address] [place] [address] Apr, Psychophysiological insomnia F51.04 [place] [address] [facility] [id number] [address] [place] [address] Apr, Thoracic back pain, unspecif ied back pain laterality, unspecified chronicity M54.6 [place] [address] [facility] [id number] [address] [place] [address] 10 Apr, 2019 Thoracic back pain, unspecif ied back pain laterality, unspecified chronicity M54.6 [place] [address] [facility] [id number] [address] [place] [address] Apr, Anxiety F41.9 [place] [address] [facility] [id number] [address] [place] [address] Apr, Psychophysiological insomnia F51.04 [place] [address] [place] [id number] [address] [place] [address] 30 Mar, 2019 Encounter for Medicare ann l wellness exam Z00.00 ; HTN (hypertension) [...] both eyes, unspecified age-related cataract type H25.9 [place] [address] [id number] [address] [place] [address] Mar, Thoracic back pain, unspecif ied back pain laterality, unspecified chronicity M54.6 [facility] [place] [address] [id number] [address] [place] [id number] 16 Mar, 2019 Psychophysiological insomnia F51.04 [facility] [place] [address] [id number] [address] [place] [address] Mar, Thoracic back pain, unspecif ied back pain laterality, unspecified chronicity M54.6 and Anxiety F41.9 [facility] [place] [address] [id number] [address] [place] [address] Mar, Psychophysiological insomnia F51.04 [facility] [place] [address] [id number] [address] [place] [address] Mar, [facility] [place] [address] [facility] [id number] [address] [place] [address] Mar, Psychophysiological insomnia F51.04 [facility] [place] [address] [id number] [address] [place] [address] Mar, [facility] [place] [address] [id number] [address] [place] [address] Feb, [facility] [place] [address] [id number] [address] [place] [address] Feb, Thoracic back pain, unspecif ied back pain laterality, unspecified chronicity M54.6 [facility] [place] [address] [id number] [address] [place] [address] 14 Feb, 2019 Anxiety F41.9 and Thoracic b ack pain, unspecified back pain laterality, unspecified chronicity M54.6 [facility] [place] [address] [facility] [id number] [address] [place] [address] 07 Feb, 2019 Insomnia G47.00 ; HTN (hyper tension) I10 and Constipation K59.00 [facility] [place] [address] [id number] [address] [place] [address] Feb, [facility] [place] [address] [id number] [address] [place] [address] Jan, Thoracic back pain, unspecif ied back pain laterality, unspecified chronicity M54.6 [facility] [place] [address] [id number] [address] [place] [address] Jan, Anxiety F41.9 [facility] [place] [address] [id number] [address] [place] [address] Jan, Anxiety F41.9 [facility] [place] [address] [id number] [address] [place] [address] Jan, Anxiety F41.9 and Thoracic b ack pain, unspecified back pain laterality, unspecified chronicity M54.6 [facility] [place] [address] [id number] [address] [place] [id number] Jan, [facility] [place] [address] [id number] [address] [place] [id number] Jan, [facility] [place] [address] [id number] [address] [place] [address] Dec, Thoracic back pain, unspecif ied back pain laterality, unspecified chronicity M54.6 [facility] [place] [address] [id number] [address] [place] [address] Dec, Thoracic back pain, unspecif ied back pain laterality, unspecified chronicity M54.6 [facility] [place] [address] [id number] [address] [place] [address] Nov, Thoracic back pain, unspecif ied back pain laterality, unspecified chronicity M54.6 [facility] [place] [address] [id number] [address] [place] [id number] Nov, Anxiety F41.9 and Thoracic b ack pain, unspecified back pain laterality, unspecified chronicity M54.6 [facility] [place] [address] [id number] [address] [place] [address] Nov, [facility] [place] [address] [id number] [address] [place] [address] Nov, [facility] [place] [address] [id number] [address] [place] [address] Nov, [facility] [place] [address] [id number] [address] [place] [address] Oct, Thoracic back pain, unspecif ied back pain laterality, unspecified chronicity M54.6 [facility] [place] [address] [id number] [address] [place] [address] Oct, Anxiety F41.9 and Thoracic b ack pain, unspecified back pain laterality, unspecified chronicity M54.6 [facility] [place] [address] [id number] [address] [place] [address] Oct, Schizophrenia, unspecified t ype F20.9 and Acute kidney injury N17.9 [facility] [place] [address] [id number] [address] [place] [address] Oct, [facility] [place] [address] [id number] [address] [place] [address] Oct, [facility] [place] [address] [id number] [address] [place] [address] Oct, Thoracic back pain, unspecif ied back pain laterality, unspecified chronicity M54.6 [facility] [place] [address] [id number] [address] [place] [id number] Oct, [facility] [place] [address] [id number] [address] [place] [address] Oct, [facility] [place] [address] [id number] [address] [place] [address] Sep, Anxiety F41.9 [facility] [place] [address] [id number] [address] [place] [address] Sep, [facility] [place] [address] [id number] [address] [place] [id number] Sep, Thoracic back pain, unspecif ied back pain laterality, unspecified chronicity M54.6 [facility] [place] [address] [id number] [address] [place] [address] Sep, [facility] [place] [address] [id number] [address] [place] [id number] Sep, [facility] [place] [address] [id number] [address] [place] [address] Sep, [facility] [place] [address] [id number] [address] [place] [id number] Sep, [facility] [place] [address] [id number] [address] [place] [address] Sep, [facility] [place] [address] [id number] [address] [place] [address] Sep, [facility] [place] [address] [id number] [address] [place] [address] Sep, Chronic pain G89.29 ; Chroni c kidney disease, stage III (moderate) N18.3 ; Hyperlipidemia E78.5 and Insomnia G47.00 [facility] [place] [address] [id number] [address] [place] [address] Sep, Thoracic back pain, unspecif ied back pain laterality, unspecified chronicity M54.6 [facility] [place] [address] [facility] [id number] [address] [place] [address] August, Anxiety F41.9 [facility] [place] [address] [id number] [address] [place] [address] August, Thoracic back pain, unspecif ied back pain laterality, unspecified chronicity M54.6 and Anxiety F41.9 [facility] [place] [address] [id number] [address] [place] [address] August, 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 [facility] [place] [address] [facility] [id number] [address] [place] [address] August, 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 [facility] [place] [address] [id number] [address] [place] [address] August, [facility] [place] [address] [id number] [address] [place] [address] August, [facility] [place] [address] [id number] [address] [place] [address] August, Thoracic back pain, unspecif ied back pain laterality, unspecified chronicity M54.6 [facility] [place] [address] [id number] [address] [place] [address] August, [facility] [place] [address] [id number] [address] [place] [address] August, Anxiety F41.9 and Thoracic b ack pain, unspecified back pain laterality, unspecified chronicity M54.6 [facility] [place] [address] [id number] [address] [place] [address] Jul, [facility] [place] [address] [id number] [address] [place] [address] Jul, Thoracic back pain, unspecif ied back pain laterality, unspecified chronicity M54.6 [facility] [place] [address] [id number] [address] [place] [address] Jun, Anxiety F41.9 and Thoracic b ack pain, unspecified back pain laterality, unspecified chronicity M54.6 [facility] [place] [address] [id number] [address] [place] [address] Jun, Anxiety F41.9 and Thoracic b ack pain, unspecified back pain laterality, unspecified chronicity M54.6 [facility] [place] [address] [id number] [address] [place] [address] Jun, Thoracic back pain, unspecif ied back pain laterality, unspecified chronicity M54.6 [facility] [place] [address] [id number] [address] [place] [id number] Jun, Anxiety F41.9 and Thoracic b ack pain, unspecified back pain laterality, unspecified chronicity M54.6 [facility] [place] [address] [id number] [address] [place] [address] May, [facility] [place] [address] [id number] [address] [place] [address] May, [facility] [place] [address] [id number] [address] [place] [address] May, [facility] [place] [address] [id number] [address] [place] [address] May, Anxiety F41.9 and Encounter for medication monitoring Z51.81 [facility] [place] [address] [id number] [address] [place] [address] May, Anxiety F41.9 and Thoracic b ack pain, unspecified back pain laterality, unspecified chronicity M54.6 [facility] [place] [address] [id number] [address] [place] [address] Apr, Hyperlipidemia 272.4 [facility] [place] [address] [id number] [address] [place] [address] Apr, Chronic pain G89.29 ; Anxiet y F41.9 ; Cervical radiculopathy M54.12 and Vision loss H54.7 [place] [address] [id number] [address] [place] [address] Apr, [facility] [place] [address] [id number] [address] [place] [address] Apr, Anxiety F41.9 and Thoracic b ack pain, unspecified back pain laterality, unspecified chronicity M54.6 [facility] [place] [address] [id number] [address] [place] [address] Mar, [facility] [place] [address] [id number] [address] [place] [address] Mar, Anxiety F41.9 and Thoracic b ack pain, unspecified back pain laterality, unspecified chronicity M54.6 [facility] [place] [address] [id number] [address] [place] [address] 14 Feb, 2018 Anxiety F41.9 and Thoracic b ack pain, unspecified back pain laterality, unspecified chronicity M54.6 [facility] [place] [address] [id number] [address] [place] [id number] 07 Feb, 2018 Thoracic back pain, unspecif ied back pain laterality, unspecified chronicity M54.6 [facility] [place] [address] [id number] [address] [place] [id number] 29 Jan, 2018 [facility] [place] [address] [id number] [address] [place] [id number] 16 Jan, 2018 Anxiety F41.9 and Thoracic b ack pain, unspecified back pain laterality, unspecified chronicity M54.6 [facility] [place] [address] [id number] [address] [place] [id number] 19 Dec, 2017 Diarrhea of presumed infecti ous origin R19.7 [facility] [place] [address] [id number] [address] [place] [id number] 19 Dec, 2017 Diarrhea of presumed infecti ous origin R19.7 [facility] [place] [address] [id number] [address] [place] [id number] 18 Dec, 2017 Thoracic back pain, unspecif ied back pain laterality, unspecified chronicity M54.6 [facility] [place] [address] [id number] [address] [place] [id number] 17 Dec, 2017 [facility] [place] [address] [id number] [address] [place] [id number] 17 Dec, 2017 Anxiety F41.9 and Thoracic b ack pain, unspecified back pain laterality, unspecified chronicity M54.6 [facility] [place] [address] [id number] [address] [place] [id number] 13 Dec, 2017 Diarrhea of presumed infecti ous origin R19.7 [facility] [place] [address] [id number] 13 Dec, 2017 [place] [address] [id number] Dec, Anxiety F41.9 and Thoracic b ack pain, unspecified back pain laterality, unspecified chronicity M54.6 [place] [address] [address] Dec, Anxiety F41.9 and Thoracic b ack pain, unspecified back pain laterality, unspecified chronicity M54.6 [facility] [address] [place] [id number] Dec, Diarrhea of presumed infectious origin R 19.7 ; Anxiety F41.9 ; Thoracic back pain, unspecified back pain laterality, unspecified chronicity M54.6 and HTN (hypertension) I10 [address] [id number] Dec, Anxiety F41.9 [facility] [address] [place] [id number] Dec, Anxiety F41.9 ; Diarrhea of presumed inf ectious origin R19.7 ; Generalized abdominal pain R10.84 and Localized edema R60.0 [place] [address] [address] Nov, [facility] [address] [place] [id number] Nov, Anxiety F41.9 ; Urinary retention R33.9 ; Diarrhea of presumed infectious origin R19.7 ; Weakness R53.1 ; Acute kidney failure, unspecified N17.9 ; Chronic kidney disease, stage III (moderate) N18.3 and Thoracic back pain, unspecified back pain laterality, unspecified chronicity M54.6 [place] [address] [address] Oct, Thoracic back pain, unspecif ied back pain laterality, unspecified chronicity M54.6 and Anxiety F41.9 [address] [place] [address] Sep, Thoracic back pain, unspecif ied back pain laterality, unspecified chronicity M54.6 and Anxiety F41.9 [facility] [place] [address] [facility] [id number] [address] [place] [id number] Sep, Thoracic back pain, unspecif ied back pain laterality, unspecified chronicity M54.6 ; Anxiety F41.9 and Encounter for medication monitoring Z51.81 [facility] [place] [address] [facility] [id number] [address] [place] [id number] August, [facility] [place] [address] [facility] [id number] [address] [place] [id number] August, Thoracic back pain, unspecif ied back pain laterality, unspecified chronicity M54.6 and Anxiety F41.9 [place] [id number] [facility] [id number] [address] [place] [id number] August, Hyperlipidemia E78.5 and HTN (hypertension) I10 [place] [id number] [facility] [id number] [address] [place] [id number] August, [place] [address] [address] [place] [id number] [address] [place] [address] August, Medicare welcome exam Z00.00 ; Chronic kidney failure N18.9 ; Anxiety F41.9 ; Chronic pain G89.29 ; Insomnia G47.00 ; Hyperlipidemia E78.5 ; HTN (hypertension) I10 and Thoracic back pain, unspecified back pain laterality, unspecified chronicity M54.6 [facility] [address] [facility] [id number] [address] [place] [id number] Jul, [facility] [address] [facility] [id number] [address] [place] [address] Jul, [facility] [address] [facility] [id number] [address] [place] [id number] Jul, [facility] [address] [facility] [id number] [address] [place] [address] Jul, Anxiety F41.9 [facility] [address] [facility] [id number] [address] [place] [id number] Jul, Thoracic back pain, unspecif ied back pain laterality, unspecified chronicity M54.6 and Anxiety F41.9 [place] [address] [facility] [id number] [address] [place] [address] Jun, Thoracic back pain, unspecif ied back pain laterality, unspecified chronicity M54.6 and Anxiety F41.9 [place] [address] [facility] [id number] [address] [place] [id number] May, Thoracic back pain, unspecif ied back pain laterality, unspecified chronicity M54.6 and Anxiety F41.9 [place] [address] [place] [id number] [address] [place] [id number] Apr, Thoracic back pain, unspecif ied back pain laterality, unspecified chronicity M54.6 and Anxiety F41.9 [place] [address] [facility] [id number] [address] [place] [id number] Mar, [place] [address] [place] [id number] [place] [address] Mar, Thoracic back pain, unspecif ied back pain laterality, unspecified chronicity M54.6 and Anxiety F41.9 [place] [address] [place] [id number] [place] [address] Mar, Thoracic back pain, unspecif ied back pain laterality, unspecified chronicity M54.6 ; HTN (hypertension) I10 ; Hyperlipidemia E78.5 and Anxiety F41.9 [place] [address] [facility] [id number] [address] [place] [id number] Feb, Thoracic back pain, unspecif ied back pain laterality, unspecified chronicity M54.6 and Anxiety F41.9 [place] [address] [facility] [id number] [address] [place] [id number] Nov, [place] [address] [facility] [id number] [address] [place] [address] Oct, [facility] [address] [place] [id number] [address] [place] [address] Oct, Thoracic back pain, unspecif ied back pain laterality, unspecified chronicity M54.6 [facility] [address] [place] [id number] [address] [place] [address] Oct, HTN (hypertension) I10 ; Con stipation K59.00 ; Hyperlipidemia E78.5 ; Thoracic back pain, unspecified back pain laterality, unspecified chronicity M54.6 ; Chronic pain G89.29 ; Anxiety F41.9 ; Chronic kidney failure N18.9 ; Environmental allergies Z91.09 ; Vitamin D deficiency E55.9 and Primary insomnia F51.01 [facility] [address] [place] [id number] [address] [place] [id number] Sep, Anxiety F41.9 [facility] [address] [place] [id number] [address] [place] [address] Sep, [facility] [address] [place] [id number] [address] [place] [id number] August, Anxiety F41.9 [facility] [address] [place] [id number] [address] [place] [address] August, [facility] [address] [place] [id number] [address] [place] [address] Jul, Anxiety F41.9 [facility] [address] [facility] [id number] [address] [place] [address] Jul, [facility] [address] [place] [id number] [address] [place] [address] Jun, Anxiety F41.9 [facility] [address] [place] [id number] [address] [place] [address] Jun, [facility] [address] [place] [id number] [address] [place] [address] May, [facility] [address] [place] [id number] [address] [place] [address] May, [facility] [address] [address] May, [facility] [address] [place] [id number] [address] [place] [id number] Apr, [facility] [address] [place] [id number] [place] [address] Apr, [facility] [address] [address] Apr, Anxiety F41.9 [facility] [address] [address] Apr, Anxiety F41.9 [facility] [address] [place] [id number] [address] [place] [address] Apr, [facility] [address] [place] [id number] [address] [place] [address] Mar, HTN (hypertension) I10 ; Phillip mor R25.1 ; Hypercholesterolemia E78.0 ; Constipation K59.00 ; Chronic pain G89.29 ; Hyperlipidemia E78.5 ; Insomnia G47.00 ; Anxiety F41.9 and Thoracic back pain, unspecified back pain laterality, unspecified chronicity M54.6 [facility] [id number] [place] [address] Mar, Tremor R25.1 ; HTN (hyperten stas) I10 ; Hypercholesterolemia E78.0 ; Constipation K59.00 ; Chronic pain G89.29 ; Hyperlipidemia E78.5 ; Insomnia G47.00 ; Anxiety F41.9 and Thoracic back pain, unspecified back pain laterality, unspecified chronicity M54.6 [facility] [address] [place] [id number] [address] [place] [address] Mar, [facility] [address] [place] [id number] [address] [place] [address] Mar, [facility] [address] [id number] [address] [place] [id number] Feb, [facility] [address] [id number] [address] [place] [address] Jan, [facility] [address] [id number] [address] [place] [address] Jan, [facility] [address] [id number] [address] [place] [id number] Dec, [facility] [address] [id number] [address] [place] [address] Nov, [facility] [address] [id number] [address] [place] [phone] Nov, [facility] [address] [facility] [id number] [address] [place] [address] Oct, Anxiety F41.9 [facility] [address] [id number] [address] [place] [address] Oct, Chronic pain G89.29 [facility] [address] [id number] [address] [place] [address] Sep, [facility] [address] [id number] [address] [place] [id number] Sep, [facility] [address] [facility] [id number] [address] [place] [address] Sep, [facility] [address] [id number] [address] [place] [address] Sep, [facility] [address] [id number] [address] [place] [id number] 16 Sep, 2015 Chronic pain syndrome G89.4 [facility] [address] [facility] [id number] [address] [place] [address] 15 Sep, 2015 HTN (hypertension) I10 ; Chr onic pain G89.29 ; Hypercholesterolemia E78.0 ; Chronic kidney failure N18.9 ; Constipation, unspecified constipation type K59.00 ; Anxiety F41.9 and Thoracic back pain, unspecified back pain laterality, unspecified chronicity M54.6 [facility] [address] [id number] [address] [place] [address] August, Chronic pain syndrome G89.4 [facility] [address] [facility] [id number] [address] [place] [address] August, Chronic pain syndrome G89.4 [facility] [address] [id number] [address] [place] [address] Jul, Anxiety disorder, unspecifie d F41.9 and Chronic pain syndrome G89.4 [facility] [address] [facility] [id number] [address] [place] [address] Jul, Insomnia, unspecified G47.00 and Chronic pain syndrome G89.4 [facility] [address] [facility] [id number] [address] [place] [id number] Jul, Allergic rhinitis J30.9 [facility] [address] [id number] [address] [place] [id number] Jul, Constipation, unspecified K5 9.00 [facility] [address] [id number] [address] [place] [id number] Jul, [facility] [address] [id number] [address] [place] [id number] Jun, [facility] [address] [id number] [address] [place] [id number] Jun, [facility] [address] [id number] [address] [place] [id number] Jun, [facility] [address] [id number] [address] [place] [id number] Jun, [facility] [address] [facility] [id number] [address] [place] [address] Jun, [facility] [address] [facility] [id number] [address] [place] [id number] Jun, [facility] [address] [facility] [id number] [address] [place] [id number] May, [facility] [address] [facility] [id number] [address] [place] [id number] May, [facility] [address] [facility] [id number] [address] [place] [address] May, Anxiety F41.9 ; Insomnia G47 .00 ; Hyperlipidemia E78.5 ; Chronic pain G89.29 ; HTN (hypertension) I10 ; Environmental allergies V15.09 and Constipation 564.00 [facility] [address] [facility] [id number] [address] [place] [id number] Apr, [facility] [address] [place] [id number] [address] [place] [id number] Apr, [facility] [address] [place] [id number] [address] [place] [address] Apr, [facility] [address] [place] [id number] [address] [place] [id number] Mar, [facility] [address] [facility] [id number] [address] [place] [id number] Mar, [facility] [address] [facility] [id number] [address] [place] [id number] Mar, [facility] [address] [facility] [id number] [address] [place] [address] Feb, [facility] [address] [facility] [id number] [address] [place] [id number] Feb, [facility] [address] [facility] [id number] [address] [place] [id number] Feb, [facility] [address] [facility] [id number] [address] [place] [id number] 15 Jan, 2015 HTN (hypertension) I10 ; Con stipation K59.00 ; Chronic pain G89.29 ; Hyperlipidemia E78.5 ; Hypercholesterolemia E78.0 ; Insomnia G47.00 and Anxiety F41.9 [facility] [address] [id number] Jan, [facility] [address] [place] [id number] [address] [place] [address] Dec, [facility] [address] [address] Nov, [facility] [address] [address] Oct, Chronic kidney disease, unsp ecified 585.9 ; Chronic pain syndrome 338.4 ; Hyperlipidemia 272.4 and Essential hypertension 401.9 [facility] [address] [place] [id number] [address] [place] [id number] Oct, Chronic kidney disease 585.9 [facility] [address] [id number] Oct, [facility] [address] [place] [id number] [address] [place] [address] Oct, Chronic kidney disease, unsp ecified 585.9 ; Hypercalcemia 275.42 ; Hyperlipidemia 272.4 ; Essential hypertension 401.9 ; Chronic pain syndrome 338.4 ; Insomnia 780.52 ; Constipation 564.00 ; Environmental allergies V15.09 and Anxiety 300.00 [facility] [address] [place] [id number] [address] [place] [address] Oct, Chronic kidney disease 585.9 [facility] [address] [place] [id number] [address] [place] [address] Oct, [facility] [address] [place] [id number] [address] [place] [address] Oct, Chronic kidney disease 585.9 and Hyperlipidemia 272.4 [facility] [address] [place] [id number] [address] [place] [address] Oct, [facility] [address] [id number] [address] [place] [id number] 10 Oct, 2014 [facility] [address] [id number] [address] [place] [address], [place] [id number] 18 Sep, 2014 [facility] [address] [id number] [address] [place] [address], [place] [id number] 15 Sep, 2014 [facility] [address] [id number] [address] [place] [id number] Sep, Chronic kidney disease 585.9 and Hyperlipidemia 272.4 [facility] [address] [id number] [address] [place] [address], [place] [address] Sep, [facility] [address] [id number] [address] [place] [address], [place] [id number] August, [facility] [address] [id number] [address] [place] [address], [place] [id number] August, [facility] [address] [id number] [address] [place] [id number] 14 Jul, 2014 [facility] [address] [id number] [address] [place] [address], [place] [address] Jul, [facility] [address] [id number] [address] [place] [id number] 20 Jun, 2014 [facility] [address] [id number] [address] [place] [address] Jun, [facility] [address] [id number] [address] [place] [id number] 16 Jun, 2014 [facility] [address] [id number] [address] [place] [address], [place] [id number] 16 Jun, 2014 [facility] [address] [id number] [address] [place] [address], [place] [id number] 09 Jun, 2014 [facility] [address] [id number] [address] [place] [id number] 09 Jun, 2014 [facility] [address] [id number] [address] [place] [id number] Jun, [facility] [address] [id number] [address] [place] [address], [place] [id number] Jun, [facility] [address] [id number] [address] [place] [address], [place] [id number] May, [facility] [address] [id number] [address] [place] [address], [place] [id number] May, [facility] [address] [id number] [address] [place] [address], [place] [address] May, [facility] [address] [id number] [address] [place] [address], [place] [id number] May, [facility] [address] [id number] [address] [place] [address], [place] [address] Apr, [facility] [address] [id number] [address] [place] [address], [place] [address] Apr, [facility] [address] [id number] [address] [place] [address], [place] [id number] Apr, [facility] [address] [id number] [address] [place] [address], [place] [id number] Apr, [facility] [address] [id number] [address] [place] [address], [place] [id number] Apr, [facility] [address] [id number] [address] [place] [address], [place] [id number] Apr, [facility] [address] [id number] [address] [place] [address], [place] [id number] Apr, [facility] [address] [id number] [address] [place] [address], [place] [id number] Apr, [facility] [address] [id number] [address] [place] [address], [place] [id number] Apr, [facility] [address] [id number] [address] [place] [address], [place] [id number] Apr, [facility] [address] [id number] [address] [place] [address], [place] [id number] Apr, [facility] [address] [id number] [address] [place] [address], [place] [id number] Mar, [facility] [address] [id number] [address] [place] [address], [place] [id number] Mar, [facility] [address] [id number] [address] [place] [address], [place] [id number] Feb, [facility] [address] [id number] [address] [place] [address], [place] [id number] Feb, [facility] [address] [id number] [address] [place] [address], [place] [id number] Feb, [facility] [address] [id number] [address] [place] [address], [place] [id number] Feb, [facility] [address] [id number] [address] [place] [address], [place] [id number] Feb, [facility] [address] [id number] [address] [place] [address], [place] [id number] Feb, [facility] [address] [id number] [address] [place] [address], [place] [id number] Feb, [facility] [address] [id number] [address] [place] [address], [place] [id number] Feb, [facility] [address] [id number] [address] [place] [address], [place] [id number] Feb, [facility] [address] [id number] [address] [place] [address], [place] [id number] Feb, [facility] [address] [id number] [address] [place] [address], [place] [id number] Jan, [facility] [address] [id number] [address] [place] [address], [place] [id number] Jan, [facility] [address] [id number] [address] [place] [address], [place] [id number] Jan, [facility] [address] [id number] [address] [place] [address], [place] [id number] Jan, [facility] [address] [id number] [address] [place] [address], [place] [id number] 24 Jan, 2014 [facility] [address] [id number] [address] [place] [address], [place] [id number] 24 Jan, 2014 [facility] [address] [id number] [address] [place] [address], [place] [id number] Jan, [facility] [address] [id number] [address] [place] [address], [place] [id number] 17 Jan, 2014 [facility] [address] [id number] [address] [place] [address], [place] [id number] 16 Jan, 2014 [facility] [address] [id number] [address] [place] [address], [place] [id number] Jan, [facility] [address] [id number] [address] [place] [address], [place] [id number] Jan, [facility] [address] [id number] [address] [place] [address], [place] [id number] 26 Dec, 2013 [facility] [address] [id number] [address] [place] [address], [place] [id number] 26 Dec, 2013 [facility] [address] [id number] [address] [place] [address], [place] [id number] 19 Dec, 2013 [facility] [address] [id number] [address] [place] [id number] 19 Dec, 2013 [facility] [address] [id number] [address] [place] [address], [place] [id number] 18 Dec, 2013 [facility] [address] [id number] [address] [place] [address], [place] [id number] 18 Dec, 2013 [facility] [address] [id number] [address] [place] [address], [place] [id number] 03 Dec, 2013 [facility] [address] [id number] [address] [place] [address], [place] [id number] Dec, [facility] [address] [id number] [address] [place] [address], [place] [id number] Nov, [facility] [address] [id number] [address] [place] [address], [place] [id number] Nov, [facility] [address] [id number] [address] [place] [address], [place] [id number] Nov, [facility] [address] [id number] [address] [place] [address], [place] [id number] Nov, [facility] [address] [id number] [address] [place] [address], [place] [id number] Nov, [facility] [address] [id number] [address] [place] [address], [place] [id number] Nov, [facility] [address] [id number] [address] [place] [address], [place] [id number] Nov, [facility] [address] [id number] [address] [place] [address], [place] [address] Nov, [facility] [address] [id number] [address] [place] [address], [place] [id number] Oct, [facility] [address] [id number] [address] [place] [address], [place] [address] Oct, [facility] [address] [id number] [address] [place] [address], [place] [address] Oct, [facility] [address] [id number] [address] [place] [address], [place] [id number] Oct, [facility] [address] [id number] [address] [place] [address], [place] [id number] Sep, [facility] [address] [id number] [address] [place] [address], [place] [id number] Sep, [facility] [address] [id number] [address] [place] [address], [place] [address] Sep, [facility] [address] [id number] [address] [place] [address], [place] [id number] Sep, [facility] [address] [id number] [address] [place] [address], [place] [id number] Sep, [facility] [address] [id number] [address] [place] [address], [place] [id number] Sep, [facility] [address] [id number] [address] [place] [address], [place] [id number] Sep, [facility] [address] [id number] [address] [place] [address], [place] [address] Sep, [facility] [address] [id number] [address] [place] [address], [place] [address] August, [facility] [address] [id number] [address] [place] [address], [place] [address] August, [facility] [address] [id number] [address] [place] [address], [place] [id number] August, [facility] [address] [id number] [address] [place] [address], [place] [id number] August, [facility] [address] [id number] [address] [place] [address], [place] [id number] August, [facility] [address] [id number] [address] [place] [address], [place] [address] August, [facility] [address] [id number] [address] [place] [address], [place] [id number] August, [facility] [address] [id number] [address] [place] [address], [place] [id number] August, [facility] [address] [id number] [address] [place] [address], [place] [id number] August, [facility] [address] [id number] [address] [place] [address], [place] [id number] August, [facility] [address] [id number] [address] [place] [address], [place] [id number] Jul, [facility] [address] [id number] [address] [place] [address], [place] [id number] Jul, [facility] [address] [id number] [address] [place] [address], [place] [id number] Jul, [facility] [address] [id number] [address] [place] [address], [place] [id number] Jul, [facility] [address] [id number] [address] [place] [address], [place] [id number] Jul, [facility] [address] [id number] [address] [place] [address], [place] [id number] Jul, [facility] [address] [id number] [address] [place] [address], [place] [id number] Jul, [facility] [address] [id number] [address] [place] [address], [place] [address] Jul, [facility] [address] [id number] [address] [place] [address], [place] [id number] Jun, [facility] [address] [id number] [address] [place] [address], [place] [id number] Jun, [facility] [address] [id number] [address] [place] [address], [place] [address] Jun, [facility] [address] [id number] [address] [place] [address], [place] [id number] Jun, [facility] [address] [id number] [address] [place] [address], [place] [id number] Jun, [facility] [address] [id number] [address] [place] [address], [place] [address] Jun, [facility] [address] [id number] [address] [place] [address], [place] [id number] May, [facility] [address] [id number] [address] [place] [address], [place] [id number] May, [facility] [address] [id number] [address] [place] [address], [place] [id number] May, [facility] [address] [id number] [address] [place] [address], [place] [id number] May, [facility] [address] [id number] [address] [place] [address], [place] [address] May, [facility] [address] [id number] [address] [place] [address], [place] [id number] May, [facility] [address] [id number] [address] [place] [address], [place] [address] May, [facility] [address] [id number] [address] [place] [address], [place] [address] Apr, [facility] [address] [id number] [address] [place] [address], [place] [id number] Apr, [facility] [address] [id number] [address] [place] [address], [place] [address] Apr, [facility] [address] [id number] [address] [place] [address], [place] [id number] Apr, [facility] [address] [id number] [address] [place] [address], [place] [address] Apr, [facility] [address] [id number] [address] [place] [address], [place] [id number] Apr, [facility] [address] [id number] [address] [place] [address], [place] [id number] Mar, [facility] [address] [id number] [address] [place] [address], [place] [id number] Mar, [facility] [address] [id number] [address] [place] [address], [place] [id number] Mar, [facility] [address] [id number] [address] [place] [address], [place] [address] Mar, [facility] [address] [id number] [address] [place] [address], [place] [address] Mar, [facility] [address] [id number] [address] [place] [address], [place] [id number] Mar, [facility] [address] [id number] [address] [place] [address], [place] [id number] 16 Mar, 2013 [facility] [address] [id number] [address] [place] [address], [place] [id number] Mar, [facility] [address] [id number] [address] [place] [address], [place] [id number] Mar, [facility] [address] [id number] [address] [place] [address], [place] [id number] Mar, [facility] [address] [id number] [address] [place] [address], [place] [address] Feb, [facility] [address] [id number] [address] [place] [address], [place] [id number] Feb, [facility] [address] [id number] [address] [place] [address], [place] [id number] Feb, [facility] [address] [id number] [address] [place] [address], [place] [id number] Feb, [facility] [address] [id number] [address] [place] [address], [place] [id number] Feb, [facility] [address] [id number] [address] [place] [id number] 14 Feb, 2013 [facility] [address] [id number] [address] [place] [id number] Feb, [facility] [address] [id number] [address] [place] [address], [place] [id number] Feb, [facility] [address] [id number] [address] [place] [address], [place] [id number] 08 Feb, 2013 [facility] [address] [id number] [address] [place] [address], [place] [id number] Feb, [facility] [address] [id number] [address] [place] [address], [place] [address] Jan, [facility] [address] [id number] [address] [place] [address], [place] [id number] Jan, [facility] [address] [id number] [address] [place] [address], [place] [id number] Jan, [facility] [address] [id number] [address] [place] [address], [place] [id number] Jan, [facility] [address] [id number] [address] [place] [address], [place] [id number] Jan, [facility] [address] [id number] [address] [place] [address], [place] [id number] Jan, [facility] [address] [id number] [address] [place] [address], [place] [id number] Jan, [facility] [address] [id number] [address] [place] [address], [place] [id number] Jan, [facility] [address] [id number] [address] [place] [address], [place] [id number] Jan, [facility] [address] [id number] [address] [place] [address], [place] [id number] 25 Dec, 2012 [facility] [address] [id number] [address] [place] [address], [place] [id number] 23 Dec, 2012 [facility] [address] [id number] [address] [place] [address], [place] [id number] 21 Dec, 2012 [facility] [address] [id number] [address] [place] [address], [place] [id number] 13 Dec, 2012 [facility] [address] [id number] [address] [place] [address], [place] [id number] Nov, [facility] [address] [id number] [address] [place] [address], [place] [id number] Nov, [facility] [address] [id number] [address] [place] [address], [place] [id number] Nov, [facility] [address] [id number] [address] [place] [address], [place] [id number] Nov, [facility] [address] [id number] [address] [place] [address], [place] [id number] Nov, [facility] [address] [id number] [address] [place] [address], [place] [id number] Nov, [facility] [address] [id number] [address] [place] [address], [place] [id number] Oct, [facility] [address] [id number] [address] [place] [address], [place] [address] Oct, [facility] [address] [id number] [address] [place] [address], [place] [id number] Oct, [facility] [address] [id number] [address] [place] [address], [place] [id number] Oct, [facility] [address] [id number] [address] [place] [address], [place] [id number] Sep, [facility] [address] [id number] [address] [place] [address], [place] [id number] Sep, [facility] [address] [id number] [address] [place] [address], [place] [address] Sep, [facility] [address] [id number] [address] [place] [address], [place] [id number] Sep, [facility] [address] [id number] [address] [place] [address], [place] [id number] Sep, [facility] [address] [id number] [address] [place] [address], [place] [id number] August, [facility] [address] [id number] [address] [place] [address], [place] [id number] August, [facility] [address] [id number] [address] [place] [address], [place] [id number] Jul, [facility] [address] [id number] [address] [place] [address], [place] [id number] 19 Jul, 2012 [facility] [address] [id number] [address] [place] [address], [place] [id number] 15 Jul, 2012 [facility] [address] [id number] [address] [place] [address], [place] [id number] 09 Jul, 2012 [facility] [address] [id number] [address] [place] [address], [place] [id number] 08 Jul, 2012 [facility] [address] [id number] [address] [place] [address], [place] [id number] 26 Jun, 2012 [facility] [address] [id number] [address] [place] [address], [place] [id number] Jun, [facility] [address] [id number] [address] [place] [address], [place] [id number] Jun, [facility] [address] [id number] [address] [place] [address], [place] [id number] Jun, [facility] [address] [id number] [address] [place] [address], [place] [id number] Jun, [facility] [address] [id number] [address] [place] [address], [place] [id number] 28 May, 2012 [facility] [address] [id number] [address] [place] [address], [place] [id number] 27 May, 2012 [facility] [address] [id number] [address] [place] [address], [place] [id number] 25 May, 2012 [facility] [address] [id number] [address] [place] [address], [place] [id number] 21 May, 2012 [facility] [address] [id number] [address] [place] [address], [place] [id number] 20 May, 2012 [facility] [address] [id number] [address] [place] [address], [place] [id number] 14 May, 2012 [facility] [address] [id number] [address] [place] [address], [place] [id number] 13 May, 2012 [facility] [address] [id number] [address] [place] [address], [place] [id number] 08 May, 2012 [facility] [address] [id number] [address] [place] [address], [place] [id number] May, [facility] [address] [id number] [address] [place] [address], [place] [id number] Apr, [facility] [address] [id number] [address] [place] [address], [place] [id number] Apr, [facility] [address] [id number] [address] [place] [address], [place] [id number] Apr, [facility] [address] [id number] [address] [place] [address], [place] [id number] Apr, [facility] [address] [id number] [address] [place] [address], [place] [id number] Apr, [facility] [address] [id number] [address] [place] [address], [place] [id number] Mar, [facility] [address] [id number] [address] [place] [address], [place] [id number] Mar, [facility] [address] [id number] [address] [place] [address], [place] [address] Mar, [facility] [address] [id number] [address] [place] [address], [place] [id number] Mar, [facility] [address] [id number] [address] [place] [address], [place] [id number] Mar, [facility] [address] [id number] [address] [place] [address], [place] [id number] Mar, [facility] [address] [id number] [address] [place] [address], [place] [id number] Mar, [facility] [address] [id number] [address] [place] [address], [place] [id number] Mar, [facility] [address] [id number] [address] [place] [address], [place] [id number] 07 Mar, 2012 [facility] [address] [id number] [address] [place] [address], [place] [id number] 07 Mar, 2012 [facility] [address] [id number] [address] [place] [address], [place] [id number] 30 Feb, 2012 [facility] [address] [id number] [address] [place] [address], [place] [id number] 30 Feb, 2012 [facility] [address] [id number] [address] [place] [address], [place] [id number] Feb, [facility] [address] [id number] [address] [place] [address], [place] [id number] 29 Feb, 2012 [facility] [address] [id number] [address] [place] [address], [place] [id number] Feb, [facility] [address] [id number] [address] [place] [address], [place] [id number] Feb, [facility] [address] [id number] [address] [place] [address], [place] [id number] Feb, [facility] [address] [id number] [address] [place] [address], [place] [id number] Feb, [facility] [address] [id number] [address] [place] [address], [place] [id number] 16 Feb, 2012 [facility] [address] [id number] [address] [place] [address], [place] [id number] 16 Feb, 2012 [facility] [address] [id number] [address] [place] [address], [place] [id number] 13 Feb, 2012 [facility] [address] [id number] [address] [place] [address], [place] [id number] 13 Feb, 2012 [facility] [address] [id number] [address] [place] [address], [place] [id number] 12 Feb, 2012 [facility] [address] [id number] [address] [place] [address], [place] [id number] 09 Feb, 2012 [facility] [address] [id number] [address] [place] [address], [place] [id number] Feb, [facility] [address] [id number] [address] [place] [address], [place] [id number] Feb, [facility] [address] [id number] [address] [place] [address], [place] [id number] Feb, [facility] [address] [id number] [address] [place] [address], [place] [id number] Feb, [facility] [address] [id number] [address] [place] [address], [place] [id number] Jan, [facility] [address] [id number] [address] [place] [address], [place] [id number] Jan, [facility] [address] [id number] [address] [place] [address], [place] [id number] Jan, [facility] [address] [id number] [address] [place] [address], [place] [id number] Jan, [facility] [address] [id number] [address] [place] [address], [place] [id number] Jan, [facility] [address] [id number] [address] [place] [address], [place] [id number] Jan, [facility] [address] [id number] [address] [place] [address], [place] [id number] Jan, [facility] [address] [id number] [address] [place] [id number] Jan, [facility] [address] [id number] [address] [place] [address], [place] [id number] Jan, [facility] [address] [id number] [address] [place] [address], [place] [id number] Jan, [facility] [address] [id number] [address] [place] [id number] 24 Dec, 2011 [facility] [address] [id number] [address] [place] [id number] Dec, [facility] [address] [id number] [address] [place] [address], [place] [id number] Dec, [facility] [address] [id number] [address] [place] [address], [place] [id number] Dec, [facility] [address] [id number] [address] [place] [address], [place] [id number] Nov, [facility] [address] [id number] [address] [place] [address], [place] [id number] Nov, [facility] [address] [id number] [address] [place] [address], [place] [id number] Nov, [facility] [address] [id number] [address] [place] [address], [place] [id number] Nov, [facility] [address] [id number] [address] [place] [address], [place] [id number] Nov, [facility] [address] [id number] [address] [place] [address], [place] [id number] Nov, [facility] [address] [id number] [address] [place] [address], [place] [id number] Oct, [facility] [address] [id number] [address] [place] [address], [place] [id number] Oct, [facility] [address] [id number] [address] [place] [address], [place] [id number] Oct, [facility] [address] [id number] [address] [place] [address], [place] [id number] Oct, [facility] [address] [id number] [address] [place] [address], [place] [id number] Oct, [facility] [address] [id number] [address] [place] [address], [place] [id number] Sep, [facility] [address] [id number] [address] [place] [address], [place] [id number] Sep, [facility] [address] [id number] [address] [place] [address], [place] [id number] Sep, [facility] [address] [id number] [address] [place] [address], [place] [id number] Sep, [facility] [address] [id number] [address] [place] [address], [place] [id number] Sep, [facility] [address] [id number] [address] [place] [address], [place] [id number] August, [facility] [address] [id number] [address] [place] [address], [place] [id number] August, [facility] [address] [id number] [address] [place] [address], [place] [id number] August, [facility] [address] [id number] [address] [place] [address], [place] [id number] August, [facility] [address] [id number] [address] [place] [address], [place] [id number] Jul, [facility] [address] [id number] [address] [place] [address], [place] [id number] 24 Jul, 2011 [facility] [address] [id number] [address] [place] [address], [place] [id number] Jul, [facility] [address] [id number] [address] [place] [address], [place] [id number] Jul, [facility] [address] [id number] [address] [place] [address], [place] [id number] 18 Jul, 2011 [facility] [address] [id number] [address] [place] [address], [place] [id number] 12 Jul, 2011 [facility] [address] [id number] [address] [place] [address], [place] [id number] 11 Jul, 2011 [facility] [address] [id number] [address] [place] [address], [place] [id number] 10 Jul, 2011 [facility] [address] [id number] [address] [place] [address], [place] [id number] 09 Jul, 2011 [facility] [address] [id number] [address] [place] [address], [place] [id number] 07 Jul, 2011 [facility] [address] [id number] [address] [place] [address], [place] [id number] 05 Jul, 2011 [facility] [address] [id number] [address] [place] [address], [place] [id number] Jul, [facility] [address] [id number] [address] [place] [address], [place] [id number] Jul, [facility] [address] [id number] [address] [place] [address], [place] [id number] Jul, [facility] [address] [id number] [address] [place] [address], [place] [id number] 28 Jun, 2011 [facility] [address] [id number] [address] [place] [address], [place] [id number] Jun, [facility] [address] [id number] [address] [place] [address], [place] [id number] Jun, [facility] [address] [id number] [address] [place] [address], [place] [id number] Jun, [facility] [address] [id number] [address] [place] [address], [place] [id number] May, [facility] [address] [id number] [address] [place] [address], [place] [id number] May, [facility] [address] [id number] [address] [place] [address], [place] [id number] May, [facility] [address] [id number] [address] [place] [address], [place] [id number] Apr, [facility] [address] [id number] [address] [place] [address], [place] [id number] 18 Apr, 2011 [facility] [address] [id number] [address] [place] [address], [place] [id number] 13 Apr, 2011 [facility] [address] [id number] [address] [place] [address], [place] [id number] Apr, [facility] [address] [id number] [address] [place] [address], [place] [id number] Apr, [facility] [address] [id number] [address] [place] [address], [place] [id number] Mar, [facility] [address] [id number] [address] [place] [address], [place] [id number] Mar, [facility] [address] [id number] [address] [place] [address], [place] [id number] Mar, [facility] [address] [id number] [address] [place] [address], [place] [id number] Mar, [facility] [address] [id number] [address] [place] [address], [place] [id number] Mar, [facility] [address] [id number] [address] [place] [address], [place] [id number] Mar, [facility] [address] [id number] [address] [place] [address], [place] [id number] Mar, [facility] [address] [id number] [address] [place] [address], [place] [id number] 29 Feb, 2011 [facility] [address] [id number] [address] [place] [address], [place] [id number] Feb, [facility] [address] [id number] [address] [place] [address], [place] [id number] Feb, [facility] [address] [id number] [address] [place] [address], [place] [id number] Feb, [facility] [address] [id number] [address] [place] [address], [place] [id number] 16 Feb, 2011 [facility] [address] [id number] [address] [place] [address], [place] [id number] 14 Feb, 2011 [facility] [address] [id number] [address] [place] [address], [place] [id number] 10 Feb, 2011 [facility] [address] [id number] [address] [place] [address], [place] [id number] 31 Jan, 2011 [facility] [address] [id number] [address] [place] [address], [place] [id number] 31 Jan, 2011 [facility] [address] [id number] [address] [place] [address], [place] [id number] 31 Jan, 2011 [facility] [address] [id number] [address] [place] [address], [place] [id number] 18 Jan, 2011 [facility] [address] [id number] [address] [place] [address], [place] [id number] 17 Jan, 2011 [facility] [address] [id number] [address] [place] [address], [place] [id number] 17 Jan, 2011 [facility] [address] [id number] [address] [place] [address], [place] [id number] 17 Jun, 2010 [facility] [address] [id number] [address] [place] [address], [place] [id number] 30 Mar, 2010 [facility] [address] [id number] [address] [place] [address], [place] [id number] 20 Mar, 2010 [facility] [address] [id number] [address] [place] [address], [place] [id number] 14 Mar, 2010 [facility] [address] [id number] [address] [place] [address], [place] [id number] 14 Mar, 2010 [facility] [address] [id number] [address] [place] [address], [place] [id number] 13 Mar, 2010 [facility] [address] [id number] [address] [place] [address], [place] [id number] 07 Mar, 2010 [facility] [address] [id number] [address] [place] [address], [place] [id number] 02 Mar, 2010 [facility] [address] [id number] [address] [place] [address], [place] [id number] 01 Mar, 2010 [facility] [address] [id number] [address] [place] [address], [place] [id number] 30 Feb, 2010 [facility] [address] [id number] [address] [place] [address], [place] [id number] 29 Feb, 2010 [facility] [address] [id number] [address] [place] [address], [place] [id number] Feb, [facility] [address] [id number] [address] [place] [address], [place] [id number] 17 Feb, 2010 [facility] [address] [id number] [address] [place] [address], [place] [id number] 16 Feb, 2010 [facility] [address] [id number] [address] [place] [address], [place] [id number] Feb, [facility] [address] [id number] [address] [place] [address], [place] [id number] Feb, [facility] [address] [id number] [address] [place] [address], [place] [id number] Feb, [facility] [address] [id number] [address] [place] [address], [place] [id number] Jan, [facility] [address] [id number] [address] [place] [address], [place] [id number] Jan, [facility] [address] [id number] [address] [place] [id number] Jan, [facility] [address] [id number] [address] [place] [id number] Jan, [facility] [address] [id number] [address] [place] [id number] Mar, [facility] [address] [id number] [address] [place] [address], [place] [id number] Mar, [facility] [address] [id number] [address] [place] [id number] Mar, [facility] [address] [id number] [address] [place] [id number] Mar, [facility] [address] [id number] [address] [place] [id number] 14 Mar, 2009 [facility] [address] [facility] [id number] [address] [place] [id number] 10 Mar, 2009 [facility] [address] [facility] [id number] [address] [place] [id number] Feb, [facility] [address] [facility] [id number] [address] [place] [id number] Feb, [facility] [address] [facility] [id number] [address] [place] [id number] Jan, [facility] [address] [facility] [id number] [address] [place] [id number] Sep, [facility] [address] [facility] [id number] [address] [place] [id number] May, IMMUNIZATIONS No Known Immunizations SOCIAL HISTORY [...] Surgical History Left ear surgery Hospitalization History [facility] [place]- Spontane ous Pneumothorax Hospitalization History [facility]- Colon resection Hospitalization History [facility] - diarrhea/ couldnt urin ate nov 2017 Hospitalization History pain /hip to foot right side 10/16/19 19
--- OUTSIDE RECORDS SUMMARY | 2019-08-28 08:48 | XMS REPORT ---
Author Author Dixon Lundberg Doctor Organization [facility] Address Unknown Phone Unavailable Care Team Providers Care Practice Nurse Name Role Phone Migration, Doctor Unavailable Unavailable PROBLEMS Type Condition ICD9-CM Code [id number] Code Onset Dates Condition S tatus SNOMED Code Problem Insomnia G47.00 Active 096569050 Problem Anxiety F41.9 Active 35563141 Problem HTN (hypertension) I10 Active 3 9418866 Problem Chronic pain G89.29 Active 4084057 1 Problem Constipation K59.00 Active 5973861 8 Problem Thoracic back pain, unspecif ied back pain laterality, unspecified chronicity M54.6 Active 295268841 Problem Hyperlipidemia E78.5 Active 45642 004 Problem Vitamin D deficiency E55.9 Active 54448632 Problem Chronic kidney disease, stage III (moderate) N18.3 Active 863531925 Problem Vision loss H54.7 Active 18593944 1 Problem Age-related cataract of both eyes, unspecified age-related cataract type H25.9 Active 12442356 Problem Primary insomnia F51.01 Active 397 2004 Problem Psychophysiologic insomnia F51.04 Act saúl 775795810 Problem Environmental allergies Z91.09 Active 443194880 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 [id number] [address] [place] [id number] Jul, [facility] [address] [facility] [id number] [address] [place] [id number] Jul, [facility] [address] [facility] [id number] [address] [place] [id number] Jul, [facility] [address] [facility] [id number] [address] [place] [id number] Jul, [facility] [address] [id number] [address] [place] [id number] Jul, Thoracic back pain, unspecif ied back pain laterality, unspecified chronicity M54.6 [facility] [address] [id number] [address] [place] [id number] Jul, Anxiety F41.9 and Thoracic b ack pain, unspecified back pain laterality, unspecified chronicity M54.6 [facility] [address] [id number] [address] [place] [id number] Jun, [facility] [address] [id number] [address] [place] [id number] Jun, Thoracic back pain, unspecif ied back pain laterality, unspecified chronicity M54.6 [facility] [address] [id number] [address] [place] [id number] Jun, [facility] [address] [facility] [id number] [address] [place] [id number] Jun, Anxiety F41.9 and Thoracic b ack pain, unspecified back pain laterality, unspecified chronicity M54.6 [facility] [address] [id number] [address] [place] [id number] Jun, [facility] [address] [id number] [address] [place] [id number] May, [facility] [address] [id number] [address] [place] [id number] May, Psychophysiologic insomnia F 51.04 [facility] [address] [id number] [address] [place] [id number] 13 May, 2019 Other constipation K59.09 [facility] [address] [id number] [address] [place] [id number] 11 May, 2019 Thoracic back pain, unspecif ied back pain laterality, unspecified chronicity M54.6 [place] [address] [facility] [id number] [address] [place] [id number] 06 May, 2019 Anxiety F41.9 and Thoracic b ack pain, unspecified back pain laterality, unspecified chronicity M54.6 [facility] [address] [facility] [id number] [address] [place] [id number] 06 May, 2019 [facility] [address] [facility] [id number] [address] [place] [id number] Apr, [facility] [address] [facility] [id number] [address] [place] [id number] Apr, [facility] [address] [facility] [id number] [address] [place] [id number] Apr, Psychophysiological insomnia F51.04 [place] [address] [place] [id number] [address] [place] [id number] Apr, Thoracic back pain, unspecif ied back pain laterality, unspecified chronicity M54.6 [facility] [address] [place] [id number] [address] [place] [id number] 10 Apr, 2019 Thoracic back pain, unspecif ied back pain laterality, unspecified chronicity M54.6 [place] [address] [place] [id number] [address] [place] [id number] Apr, Anxiety F41.9 [place] [address] [place] [id number] [address] [place] [id number] Apr, Psychophysiological insomnia F51.04 [place] [address] [place] [id number] [place] [address] Mar, Encounter for Medicare annua l wellness [...] both eyes, unspecified age-related cataract type H25.9 [facility] [address] [id number] [address] [place] [id number] Mar, Thoracic back pain, unspecif ied back pain laterality, unspecified chronicity M54.6 [facility] [address] [id number] [address] [place] [id number] Mar, Psychophysiological insomnia F51.04 [facility] [address] [id number] [address] [place] [id number] Mar, Thoracic back pain, unspecif ied back pain laterality, unspecified chronicity M54.6 and Anxiety F41.9 [place] [address] [id number] [address] [place] [id number] Mar, Psychophysiological insomnia F51.04 [place] [address] [id number] [address] [place] [id number] Mar, [facility] [address] [id number] [address] [place] [id number] Mar, Psychophysiological insomnia F51.04 [facility] [address] [id number] [address] [place] [id number] Mar, [facility] [address] [id number] [address] [place] [id number] Feb, [facility] [address] [id number] [address] [place] [id number] Feb, Thoracic back pain, unspecif ied back pain laterality, unspecified chronicity M54.6 [facility] [address] [id number] [address] [place] [id number] 14 Feb, 2019 Anxiety F41.9 and Thoracic b ack pain, unspecified back pain laterality, unspecified chronicity M54.6 [facility] [address] [id number] [address] [place] [id number] 07 Feb, 2019 Insomnia G47.00 ; HTN (hyper tension) I10 and Constipation K59.00 [facility] [address] [id number] [address] [place] [id number] Feb, [facility] [address] [id number] [address] [place] [id number] Jan, Thoracic back pain, unspecif ied back pain laterality, unspecified chronicity M54.6 [facility] [address] [id number] [address] [place] [id number] Jan, Anxiety F41.9 [facility] [address] [id number] [address] [place] [address] Jan, Anxiety F41.9 [facility] [address] [id number] [address] [place] [id number] Jan, Anxiety F41.9 and Thoracic b ack pain, unspecified back pain laterality, unspecified chronicity M54.6 [facility] [address] [id number] [address] [place] [id number] Jan, [facility] [address] [id number] [address] [place] [id number] Jan, [facility] [address] [id number] [address] [place] [id number] Dec, Thoracic back pain, unspecif ied back pain laterality, unspecified chronicity M54.6 [facility] [address] [id number] [address] [place] [id number] Dec, Thoracic back pain, unspecif ied back pain laterality, unspecified chronicity M54.6 [facility] [address] [id number] [address] [place] [id number] Nov, Thoracic back pain, unspecif ied back pain laterality, unspecified chronicity M54.6 [facility] [address] [id number] [address] [place] [id number] Nov, Anxiety F41.9 and Thoracic b ack pain, unspecified back pain laterality, unspecified chronicity M54.6 [facility] [address] [id number] [address] [place] [id number] Nov, [facility] [address] [id number] [address] [place] [id number] Nov, [facility] [address] [id number] [address] [place] [id number] Nov, [facility] [address] [id number] [address] [place] [id number] Oct, Thoracic back pain, unspecif ied back pain laterality, unspecified chronicity M54.6 [facility] [address] [id number] [address] [place] [id number] Oct, Anxiety F41.9 and Thoracic b ack pain, unspecified back pain laterality, unspecified chronicity M54.6 [facility] [address] [id number] [address] [place] [id number] Oct, Schizophrenia, unspecified t ype F20.9 and Acute kidney injury N17.9 [facility] [address] [id number] [address] [place] [id number] Oct, [facility] [address] [id number] [address] [place] [id number] Oct, [facility] [address] [id number] [address] [place] [id number] Oct, Thoracic back pain, unspecif ied back pain laterality, unspecified chronicity M54.6 [facility] [address] [id number] [address] [place] [id number] Oct, [facility] [address] [id number] [address] [place] [phone] Oct, [facility] [address] [id number] [address] [place] [id number] Sep, Anxiety F41.9 [facility] [address] [id number] [address] [place] [id number] Sep, [facility] [address] [id number] [address] [place] [id number] Sep, Thoracic back pain, unspecif ied back pain laterality, unspecified chronicity M54.6 [facility] [address] [id number] [address] [place] [phone] Sep, [facility] [address] [id number] [address] [place] [id number] Sep, [facility] [address] [id number] [address] [place] [phone] Sep, [facility] [address] [id number] [address] [place] [phone] Sep, [facility] [address] [id number] [address] [place] [id number] Sep, [facility] [address] [id number] [address] [place] [id number] Sep, [facility] [address] [id number] [address] [place] [id number] Sep, Chronic pain G89.29 ; Chroni c kidney disease, stage III (moderate) N18.3 ; Hyperlipidemia E78.5 and Insomnia G47.00 [facility] [address] [id number] [address] [place] [id number] Sep, Thoracic back pain, unspecif ied back pain laterality, unspecified chronicity M54.6 [facility] [address] [id number] [address] [place] [id number] August, Anxiety F41.9 [facility] [address] 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 [facility] [address] [id number] [address] [place] [id number] August, [facility] [address] [id number] [address] [place] [id number] August, [facility] [address] [id number] [address] [place] [id number] August, Thoracic back pain, unspecif ied back pain laterality, unspecified chronicity M54.6 [facility] [address] [id number] [address] [place] [id number] August, [facility] [address] [id number] [address] [place] [phone] August, Anxiety F41.9 and Thoracic b ack pain, unspecified back pain laterality, unspecified chronicity M54.6 [facility] [address] [id number] [address] [place] [id number] Jul, [facility] [address] [id number] [address] [place] [id number] Jul, Thoracic back pain, unspecif ied back pain laterality, unspecified chronicity M54.6 [facility] [address] [id number] [address] [place] [id number] Jun, Anxiety F41.9 and Thoracic b ack pain, unspecified back pain laterality, unspecified chronicity M54.6 [facility] [address] [id number] [address] [place] [id number] Jun, Anxiety F41.9 and Thoracic b ack pain, unspecified back pain laterality, unspecified chronicity M54.6 [facility] [address] [id number] [address] [place] [id number] Jun, Thoracic back pain, unspecif ied back pain laterality, unspecified chronicity M54.6 [facility] [address] [id number] [address] [place] [id number] Jun, Anxiety F41.9 and Thoracic b ack pain, unspecified back pain laterality, unspecified chronicity M54.6 [facility] [address] [id number] [address] [place] [id number] May, [facility] [address] [id number] [address] [place] [id number] May, [facility] [address] [id number] [address] [place] [id number] May, [facility] [address] [id number] [address] [place] [id number] May, Anxiety F41.9 and Encounter for medication monitoring Z51.81 [facility] [address] [id number] [address] [place] [address] May, Anxiety F41.9 and Thoracic b ack pain, unspecified back pain laterality, unspecified chronicity M54.6 [facility] [address] [id number] [address] [place] [id number] Apr, Hyperlipidemia 272.4 [facility] [address] [id number] [address] [place] [address] Apr, Chronic pain G89.29 ; Anxiet y F41.9 ; Cervical radiculopathy M54.12 and Vision loss H54.7 [facility] [address] [id number] [address] [place] [address] Apr, [facility] [address] [id number] [address] [place] [id number] Apr, Anxiety F41.9 and Thoracic b ack pain, unspecified back pain laterality, unspecified chronicity M54.6 [facility] [address] [id number] [address] [place] [id number] Mar, [facility] [address] [id number] [address] [place] [id number] 10 Mar, 2018 Anxiety F41.9 and Thoracic b ack pain, unspecified back pain laterality, unspecified chronicity M54.6 [facility] [address] [id number] [address] [place] [id number] 14 Feb, 2018 Anxiety F41.9 and Thoracic b ack pain, unspecified back pain laterality, unspecified chronicity M54.6 [facility] [address] [id number] [address] [place] [id number] 07 Feb, 2018 Thoracic back pain, unspecif ied back pain laterality, unspecified chronicity M54.6 [facility] [address] [id number] [address] [place] [id number] 29 Jan, 2018 [facility] [address] [id number] [address] [place] [id number] 16 Jan, 2018 Anxiety F41.9 and Thoracic b ack pain, unspecified back pain laterality, unspecified chronicity M54.6 [facility] [address] [id number] [address] [place] [id number] 19 Dec, 2017 Diarrhea of presumed infecti ous origin R19.7 [facility] [address] [id number] [address] [place] [id number] 19 Dec, 2017 Diarrhea of presumed infecti ous origin R19.7 [facility] [address] [id number] [address] [place] [id number] 18 Dec, 2017 Thoracic back pain, unspecif ied back pain laterality, unspecified chronicity M54.6 [facility] [address] [id number] [address] [place] [id number] 17 Dec, 2017 [facility] [address] [id number] [address] [place] [id number] 17 Dec, 2017 Anxiety F41.9 and Thoracic b ack pain, unspecified back pain laterality, unspecified chronicity M54.6 [facility] [address] [facility] [id number] [address] [place] [id number] Dec, Diarrhea of presumed infecti ous origin R19.7 [place] [address] [place] [id number] [address] [place] [id number] Dec, [place] [address] [place] [id number] [address] [place] [id number] Dec, Anxiety F41.9 and Thoracic b ack pain, unspecified back pain laterality, unspecified chronicity M54.6 [place] [address] [id number] Dec, Anxiety F41.9 and Thoracic b ack pain, unspecified back pain laterality, unspecified chronicity M54.6 [facility] [address] [place] [id number] Dec, Diarrhea of presumed infectious origin R 19.7 ; Anxiety F41.9 ; Thoracic back pain, unspecified back pain laterality, unspecified chronicity M54.6 and HTN (hypertension) I10 [place] [address] [place] [id number] [address] [place] [id number] Dec, Anxiety F41.9 [facility] [address] [place] [id number] Dec, Anxiety F41.9 ; Diarrhea of presumed inf ectious origin R19.7 ; Generalized abdominal pain R10.84 and Localized edema R60.0 [place] [address] [place] [id number] [address] [place] [id number] Nov, [facility] [address] [place] [id number] Nov, Anxiety F41.9 ; Urinary retention R33.9 ; Diarrhea of presumed infectious origin R19.7 ; Weakness R53.1 ; Acute kidney failure, unspecified N17.9 ; Chronic kidney disease, stage III (moderate) N18.3 and Thoracic back pain, unspecified back pain laterality, unspecified chronicity M54.6 [place] [address] [place] [id number] [address] [place] [id number] Oct, Thoracic back pain, unspecif ied back pain laterality, unspecified chronicity M54.6 and Anxiety F41.9 [facility] [address] [id number] [address] [place] [id number] Sep, Thoracic back pain, unspecif ied back pain laterality, unspecified chronicity M54.6 and Anxiety F41.9 [facility] [address] [facility] [id number] [address] [place] [id number] 04 Sep, 2017 Thoracic back pain, unspecif ied back pain laterality, unspecified chronicity M54.6 ; Anxiety F41.9 and Encounter for medication monitoring Z51.81 [facility] [address] [id number] [address] [place] [id number] August, [facility] [address] [facility] [id number] [address] [place] [id number] August, Thoracic back pain, unspecif ied back pain laterality, unspecified chronicity M54.6 and Anxiety F41.9 [facility] [address] [facility] [id number] [address] [place] [id number] August, Hyperlipidemia E78.5 and HTN (hypertension) I10 [facility] [address] [facility] [id number] [address] [place] [id number] August, [facility] [address] [id number] [address] [place] [address] August, Medicare welcome exam Z00.00 ; Chronic kidney failure N18.9 ; Anxiety F41.9 ; Chronic pain G89.29 ; Insomnia G47.00 ; Hyperlipidemia E78.5 ; HTN (hypertension) I10 and Thoracic back pain, unspecified back pain laterality, unspecified chronicity M54.6 [facility] [address] [facility] [id number] [address] [place] [id number] Jul, [facility] [address] [id number] [address] [place] [id number] Jul, [facility] [address] [facility] [id number] [address] [place] [id number] Jul, [place] [id number] [place] [address] Jul, Anxiety F41.9 [place] [address] [place] [id number] [address] [place] [phone] Jul, Thoracic back pain, unspecif ied back pain laterality, unspecified chronicity M54.6 and Anxiety F41.9 [place] [address] [address] Jun, Thoracic back pain, unspecif ied back pain laterality, unspecified chronicity M54.6 and Anxiety F41.9 [place] [address] [address] May, Thoracic back pain, unspecif ied back pain laterality, unspecified chronicity M54.6 and Anxiety F41.9 [place] [address] [address] Apr, Thoracic back pain, unspecif ied back pain laterality, unspecified chronicity M54.6 and Anxiety F41.9 [place] [address] [id number] Mar, [place] [address] [address] Mar, Thoracic back pain, unspecif ied back pain laterality, unspecified chronicity M54.6 and Anxiety F41.9 [place] [address] [place] [id number] [address] [place] [id number] 14 Mar, 2017 Thoracic back pain, unspecif ied back pain laterality, unspecified chronicity M54.6 ; HTN (hypertension) I10 ; Hyperlipidemia E78.5 and Anxiety F41.9 [place] [address] [place] [id number] [address] [place] [id number] Feb, Thoracic back pain, unspecif ied back pain laterality, unspecified chronicity M54.6 and Anxiety F41.9 [place] [address] [address] [place] [id number] [address] [place] [id number] Nov, [facility] [address] [place] [id number] [place] [id number] Oct, [facility] [address] [id number] Oct, Thoracic back pain, unspecif ied back pain laterality, unspecified chronicity M54.6 [facility] [address] [id number] Oct, HTN (hypertension) I10 ; Con stipation K59.00 ; Hyperlipidemia E78.5 ; Thoracic back pain, unspecified back pain laterality, unspecified chronicity M54.6 ; Chronic pain G89.29 ; Anxiety F41.9 ; Chronic kidney failure N18.9 ; Environmental allergies Z91.09 ; Vitamin D deficiency E55.9 and Primary insomnia F51.01 [facility] [address] [place] [id number] [place] [id number] Sep, Anxiety F41.9 [facility] [address] [address] Sep, [facility] [address] [address] August, Anxiety F41.9 [facility] [address] [address] August, [facility] [address] [address] Jul, Anxiety F41.9 [facility] [address] [place] [id number] [address] [place] [phone] Jul, [facility] [address] [place] [id number] [place] [address] Jun, Anxiety F41.9 [facility] [address] [place] [id number] [place] [phone] Jun, [facility] [address] [facility] [id number] [address] [place] [phone] May, [facility] [address] [facility] [id number] [address] [place] [phone] May, [facility] [address] [facility] [id number] [address] [place] [phone] May, [facility] [address] [facility] [id number] [address] [place] [phone] Apr, [facility] [address] [facility] [id number] [address] [place] [phone] Apr, [facility] [address] [place] [id number] [address] [place] [phone] Apr, Anxiety F41.9 [facility] [address] [place] [id number] [place] [address] Apr, Anxiety F41.9 [facility] [address] [place] [id number] [address] [place] [phone] Apr, [facility] [address] [facility] [id number] [address] [place] [id number] Mar, HTN (hypertension) I10 ; Phillip mor R25.1 ; Hypercholesterolemia E78.0 ; Constipation K59.00 ; Chronic pain G89.29 ; Hyperlipidemia E78.5 ; Insomnia G47.00 ; Anxiety F41.9 and Thoracic back pain, unspecified back pain laterality, unspecified chronicity M54.6 [facility] [address] [facility] [id number] [address] [place] [id number] Mar, Tremor R25.1 ; HTN (hyperten stas) I10 ; Hypercholesterolemia E78.0 ; Constipation K59.00 ; Chronic pain G89.29 ; Hyperlipidemia E78.5 ; Insomnia G47.00 ; Anxiety F41.9 and Thoracic back pain, unspecified back pain laterality, unspecified chronicity M54.6 [facility] [address] [place] [id number] [address] [place] [phone] Mar, [facility] [address] [id number] [address] [place] [address], [place] [address] 02 Mar, 2016 [facility] [address] [id number] [address] [place] [address], [place] [address] 09 Feb, 2016 [facility] [address] [id number] [address] [place] [address], [place] [address] 13 Jan, 2016 [facility] [address] [id number] [address] [place] [address], [place] [address] Jan, [facility] [address] [id number] [address] [place] [address], [place] [address] 15 Dec, 2015 [facility] [address] [id number] [address] [place] [address], [place] [address] Nov, [facility] [address] [id number] [address] [place] [address], [place] [address] Nov, [facility] [address] [id number] [address] [place] [id number] Oct, Anxiety F41.9 [facility] [address] [id number] [address] [place] [id number] Oct, Chronic pain G89.29 [facility] [address] [id number] [address] [place] [id number] 24 Sep, 2015 [facility] [address] [id number] [address] [place] [phone] Sep, [facility] [address] [id number] [address] [place] [phone] Sep, [facility] [address] [id number] [address] [place] [id number] 17 Sep, 2015 [facility] [address] [id number] [address] [place] [id number] 16 Sep, 2015 Chronic pain syndrome G89.4 [facility] [address] [id number] [address] [place] [id number] Sep, HTN (hypertension) I10 ; Chr onic pain G89.29 ; Hypercholesterolemia E78.0 ; Chronic kidney failure N18.9 ; Constipation, unspecified constipation type K59.00 ; Anxiety F41.9 and Thoracic back pain, unspecified back pain laterality, unspecified chronicity M54.6 [facility] [address] [facility] [id number] [address] [place] [id number] August, Chronic pain syndrome G89.4 [facility] [address] [id number] [address] [place] [id number] August, Chronic pain syndrome G89.4 [facility] [address] [facility] [id number] [address] [place] [phone] Jul, Anxiety disorder, unspecifie d F41.9 and Chronic pain syndrome G89.4 [facility] [address] [facility] [id number] [address] [place] [address] Jul, Insomnia, unspecified G47.00 and Chronic pain syndrome G89.4 [facility] [address] [facility] [id number] [address] [place] [address] Jul, Allergic rhinitis J30.9 [facility] [address] [facility] [id number] [address] [place] [address] Jul, Constipation, unspecified K5 9.00 [facility] [address] [facility] [id number] [address] [place] [id number] Jul, [facility] [address] [facility] [id number] [address] [place] [phone] Jun, [facility] [address] [facility] [id number] [address] [place] [phone] Jun, [facility] [address] [facility] [id number] [address] [place] [phone] Jun, [facility] [address] [facility] [id number] [address] [place] [phone] Jun, [facility] [address] [facility] [id number] [address] [place] [phone] Jun, [facility] [address] [facility] [id number] [address] [place] [phone] Jun, [facility] [address] [facility] [id number] [address] [place] [phone] May, [facility] [address] [facility] [id number] [address] [place] [id number] May, [facility] [address] [facility] [id number] [address] [place] [phone] May, Anxiety F41.9 ; Insomnia G47 .00 ; Hyperlipidemia E78.5 ; Chronic pain G89.29 ; HTN (hypertension) I10 ; Environmental allergies V15.09 and Constipation 564.00 [facility] [address] [facility] [id number] [address] [place] [phone] Apr, [facility] [address] [facility] [id number] [address] [place] [phone] Apr, [facility] [address] [facility] [id number] [address] [place] [phone] Apr, [facility] [address] [facility] [id number] [address] [place] [phone] Mar, [facility] [address] [facility] [id number] [address] [place] [phone] Mar, [facility] [address] [facility] [id number] [address] [place] [id number] Mar, [facility] [address] [facility] [id number] [address] [place] [phone] Feb, [facility] [address] [facility] [id number] [address] [place] [id number] Feb, [facility] [address] [facility] [id number] [address] [place] [phone] Feb, [facility] [address] [facility] [id number] [address] [place] [id number] Jan, HTN (hypertension) I10 ; Con stipation K59.00 ; Chronic pain G89.29 ; Hyperlipidemia E78.5 ; Hypercholesterolemia E78.0 ; Insomnia G47.00 and Anxiety F41.9 [facility] [address] [place] [id number] [address] [place] [phone] Jan, [place] [address] [address] Dec, [facility] [address] [address] Nov, [address] [address] Oct, Chronic kidney disease, unsp ecified 585.9 ; Chronic pain syndrome 338.4 ; Hyperlipidemia 272.4 and Essential hypertension 401.[address] [address] Oct, Chronic kidney disease 585.9 [place] [address] [place] [id number] [place] [id number] Oct, [address] [address] Oct, Chronic kidney disease, unsp ecified 585.9 ; Hypercalcemia 275.42 ; Hyperlipidemia 272.4 ; Essential hypertension 401.9 ; Chronic pain syndrome 338.4 ; Insomnia 780.52 ; Constipation 564.00 ; Environmental allergies V15.09 and Anxiety 300.00 [place] [address] [place] [id number] [place] [phone] Oct, Chronic kidney disease 585.[address] [address] Oct, [place] [address] [place] [id number] [address] [place] [id number] Oct, Chronic kidney disease 585.9 and Hyperlipidemia 272.4 [facility] [address] [id number] [address] [place] [phone] 10 Oct, 2014 [facility] [address] [id number] [address] [place] [address], [place] [address] 10 Oct, 2014 [facility] [address] [id number] [address] [place] [address], [place] [address] 18 Sep, 2014 [facility] [address] [id number] [address] [place] [id number] 15 Sep, 2014 [facility] [address] [id number] [address] [place] [address], [place] [address] 15 Sep, 2014 Chronic kidney disease 585.9 and Hyperlipidemia 272.4 [facility] [address] [id number] [address] [place] [address], [place] [address] Sep, [facility] [address] [id number] [address] [place] [address], [place] [address] August, [facility] [address] [id number] [address] [place] [phone] August, [facility] [address] [id number] [address] [place] [address], [place] [address] 14 Jul, 2014 [facility] [address] [id number] [address] [place] [phone] Jul, [facility] [address] [id number] [address] [place] [phone] 20 Jun, 2014 [facility] [address] [id number] [address] [place] [id number] 20 Jun, 2014 [facility] [address] [id number] [address] [place] [address], [place] [address] 16 Jun, 2014 [facility] [address] [id number] [address] [place] [address], [place] [address] 16 Jun, 2014 [facility] [address] [id number] [address] [place] [id number] 09 Jun, 2014 [facility] [address] [id number] [address] [place] [phone] Jun, [facility] [address] [id number] [address] [place] [address], [place] [address] Jun, [facility] [address] [id number] [address] [place] [address], [place] [address] Jun, [facility] [address] [id number] [address] [place] [address], [place] [address] May, [facility] [address] [id number] [address] [place] [address], [place] [address] May, [facility] [address] [id number] [address] [place] [address], [place] [address] May, [facility] [address] [id number] [address] [place] [address], [place] [address] May, [facility] [address] [id number] [address] [place] [address], [place] [address] Apr, [facility] [address] [id number] [address] [place] [address], [place] [address] Apr, [facility] [address] [id number] [address] [place] [address], [place] [address] Apr, [facility] [address] [id number] [address] [place] [address], [place] [address] Apr, [facility] [address] [id number] [address] [place] [address], [place] [address] Apr, [facility] [address] [id number] [address] [place] [phone] Apr, [facility] [address] [id number] [address] [place] [address], [place] [address] Apr, [facility] [address] [id number] [address] [place] [address], [place] [address] Apr, [facility] [address] [id number] [address] [place] [phone] Apr, [facility] [address] [id number] [address] [place] [address], [place] [address] Apr, [facility] [address] [id number] [address] [place] [address], [place] [address] Apr, [facility] [address] [id number] [address] [place] [address], [place] [address] Mar, [facility] [address] [id number] [address] [place] [address], [place] [address] Mar, [facility] [address] [id number] [address] [place] [address], [place] [address] Feb, [facility] [address] [id number] [address] [place] [address], [place] [address] Feb, [facility] [address] [id number] [address] [place] [address], [place] [address] Feb, [facility] [address] [id number] [address] [place] [address], [place] [address] Feb, [facility] [address] [id number] [address] [place] [address], [place] [address] Feb, [facility] [address] [id number] [address] [place] [address], [place] [address] Feb, [facility] [address] [id number] [address] [place] [address], [place] [address] Feb, [facility] [address] [id number] [address] [place] [address], [place] [address] Feb, [facility] [address] [id number] [address] [place] [address], [place] [address] Feb, [facility] [address] [id number] [address] [place] [address], [place] [address] Feb, [facility] [address] [id number] [address] [place] [address], [place] [address] Jan, [facility] [address] [id number] [address] [place] [address], [place] [address] Jan, [facility] [address] [id number] [address] [place] [address], [place] [address] Jan, [facility] [address] [id number] [address] [place] [address], [place] [address] Jan, [facility] [address] [id number] [address] [place] [address], [place] [address] Jan, [facility] [address] [id number] [address] [place] [address], [place] [address] 24 Jan, 2014 [facility] [address] [id number] [address] [place] [address], [place] [address] Jan, [facility] [address] [id number] [address] [place] [address], [place] [address] 17 Jan, 2014 [facility] [address] [id number] [address] [place] [address], [place] [address] 16 Jan, 2014 [facility] [address] [id number] [address] [place] [address], [place] [address] Jan, [facility] [address] [id number] [address] [place] [address], [place] [address] 06 Jan, 2014 [facility] [address] [id number] [address] [place] [address], [place] [address] 26 Dec, 2013 [facility] [address] [id number] [address] [place] [address], [place] [address] 26 Dec, 2013 [facility] [address] [id number] [address] [place] [id number] 19 Dec, 2013 [facility] [address] [id number] [address] [place] [address], [place] [address] 19 Dec, 2013 [facility] [address] [id number] [address] [place] [address], [place] [address] 18 Dec, 2013 [facility] [address] [id number] [address] [place] [address], [place] [address] 18 Dec, 2013 [facility] [address] [id number] [address] [place] [address], [place] [address] Dec, [facility] [address] [id number] [address] [place] [address], [place] [address] Dec, [facility] [address] [id number] [address] [place] [address], [place] [address] Nov, [facility] [address] [id number] [address] [place] [address], [place] [address] Nov, [facility] [address] [id number] [address] [place] [address], [place] [address] Nov, [facility] [address] [id number] [address] [place] [address], [place] [address] Nov, [facility] [address] [id number] [address] [place] [address], [place] [address] Nov, [facility] [address] [id number] [address] [place] [address], [place] [address] Nov, [facility] [address] [id number] [address] [place] [address], [place] [address] Nov, [facility] [address] [id number] [address] [place] [address], [place] [address] Nov, [facility] [address] [id number] [address] [place] [address], [place] [address] Oct, [facility] [address] [id number] [address] [place] [address], [place] [address] Oct, [facility] [address] [id number] [address] [place] [address], [place] [address] Oct, [facility] [address] [id number] [address] [place] [address], [place] [address] Oct, [facility] [address] [id number] [address] [place] [address], [place] [address] Sep, [facility] [address] [id number] [address] [place] [address], [place] [address] Sep, [facility] [address] [id number] [address] [place] [address], [place] [address] Sep, [facility] [address] [id number] [address] [place] [address], [place] [address] Sep, [facility] [address] [id number] [address] [place] [address], [place] [address] Sep, [facility] [address] [id number] [address] [place] [address], [place] [address] Sep, [facility] [address] [id number] [address] [place] [address], [place] [address] Sep, [facility] [address] [id number] [address] [place] [address], [place] [address] Sep, [facility] [address] [id number] [address] [place] [address], [place] [address] August, [facility] [address] [id number] [address] [place] [address], [place] [address] August, [facility] [address] [id number] [address] [place] [address], [place] [address] August, [facility] [address] [id number] [address] [place] [address], [place] [address] August, [facility] [address] [id number] [address] [place] [address], [place] [address] August, [facility] [address] [id number] [address] [place] [address], [place] [address] August, [facility] [address] [id number] [address] [place] [address], [place] [address] August, [facility] [address] [id number] [address] [place] [address], [place] [address] August, [facility] [address] [id number] [address] [place] [address], [place] [address] August, [facility] [address] [id number] [address] [place] [address], [place] [address] August, [facility] [address] [id number] [address] [place] [address], [place] [address] Jul, [facility] [address] [id number] [address] [place] [address], [place] [address] Jul, [facility] [address] [id number] [address] [place] [address], [place] [address] Jul, [facility] [address] [id number] [address] [place] [address], [place] [address] Jul, [facility] [address] [id number] [address] [place] [address], [place] [address] Jul, [facility] [address] [id number] [address] [place] [address], [place] [address] Jul, [facility] [address] [id number] [address] [place] [address], [place] [address] Jul, [facility] [address] [id number] [address] [place] [address], [place] [address] Jul, [facility] [address] [id number] [address] [place] [address], [place] [address] Jun, [facility] [address] [id number] [address] [place] [address], [place] [address] Jun, [facility] [address] [id number] [address] [place] [address], [place] [address] Jun, [facility] [address] [id number] [address] [place] [address], [place] [address] Jun, [facility] [address] [id number] [address] [place] [address], [place] [address] Jun, [facility] [address] [id number] [address] [place] [address], [place] [address] Jun, [facility] [address] [id number] [address] [place] [address], [place] [address] May, [facility] [address] [id number] [address] [place] [address], [place] [address] May, [facility] [address] [id number] [address] [place] [address], [place] [address] May, [facility] [address] [id number] [address] [place] [address], [place] [address] May, [facility] [address] [id number] [address] [place] [address], [place] [address] May, [facility] [address] [id number] [address] [place] [address], [place] [address] May, [facility] [address] [id number] [address] [place] [address], [place] [address] May, [facility] [address] [id number] [address] [place] [address], [place] [address] Apr, [facility] [address] [id number] [address] [place] [address], [place] [address] Apr, [facility] [address] [id number] [address] [place] [address], [place] [address] Apr, [facility] [address] [id number] [address] [place] [address], [place] [address] Apr, [facility] [address] [id number] [address] [place] [address], [place] [address] Apr, [facility] [address] [id number] [address] [place] [address], [place] [address] Apr, [facility] [address] [id number] [address] [place] [address], [place] [address] Mar, [facility] [address] [id number] [address] [place] [address], [place] [address] Mar, [facility] [address] [id number] [address] [place] [address], [place] [address] Mar, [facility] [address] [id number] [address] [place] [address], [place] [address] Mar, [facility] [address] [id number] [address] [place] [address], [place] [address] Mar, [facility] [address] [id number] [address] [place] [address], [place] [address] Mar, [facility] [address] [id number] [address] [place] [address], [place] [address] 16 Mar, 2013 [facility] [address] [id number] [address] [place] [address], [place] [address] 16 Mar, 2013 [facility] [address] [id number] [address] [place] [address], [place] [address] Mar, [facility] [address] [id number] [address] [place] [address], [place] [address] Mar, [facility] [address] [id number] [address] [place] [address], [place] [address] Feb, [facility] [address] [id number] [address] [place] [address], [place] [address] Feb, [facility] [address] [id number] [address] [place] [address], [place] [address] Feb, [facility] [address] [id number] [address] [place] [address], [place] [address] Feb, [facility] [address] [id number] [address] [place] [address], [place] [address] 14 Feb, 2013 [facility] [address] [id number] [address] [place] [address], [place] [address] 14 Feb, 2013 [facility] [address] [id number] [address] [place] [address], [place] [address] Feb, [facility] [address] [id number] [address] [place] [address], [place] [address] Feb, [facility] [address] [id number] [address] [place] [address], [place] [address] 08 Feb, 2013 [facility] [address] [id number] [address] [place] [address], [place] [address] Feb, [facility] [address] [id number] [address] [place] [address], [place] [address] Jan, [facility] [address] [id number] [address] [place] [address], [place] [address] Jan, [facility] [address] [id number] [address] [place] [address], [place] [address] Jan, [facility] [address] [id number] [address] [place] [address], [place] [address] Jan, [facility] [address] [id number] [address] [place] [address], [place] [address] Jan, [facility] [address] [id number] [address] [place] [address], [place] [address] Jan, [facility] [address] [id number] [address] [place] [address], [place] [address] Jan, [facility] [address] [id number] [address] [place] [address], [place] [address] Jan, [facility] [address] [id number] [address] [place] [address], [place] [address] Jan, [facility] [address] [id number] [address] [place] [address], [place] [address] 25 Dec, 2012 [facility] [address] [id number] [address] [place] [address], [place] [address] Dec, [facility] [address] [id number] [address] [place] [address], [place] [address] 21 Dec, 2012 [facility] [address] [id number] [address] [place] [address], [place] [address] 13 Dec, 2012 [facility] [address] [id number] [address] [place] [address], [place] [address] Nov, [facility] [address] [id number] [address] [place] [address], [place] [address] Nov, [facility] [address] [id number] [address] [place] [address], [place] [address] Nov, [facility] [address] [id number] [address] [place] [address], [place] [address] Nov, [facility] [address] [id number] [address] [place] [address], [place] [address] Nov, [facility] [address] [id number] [address] [place] [address], [place] [address] Nov, [facility] [address] [id number] [address] [place] [address], [place] [address] Oct, [facility] [address] [id number] [address] [place] [address], [place] [address] Oct, [facility] [address] [id number] [address] [place] [address], [place] [address] Oct, [facility] [address] [id number] [address] [place] [address], [place] [address] Oct, [facility] [address] [id number] [address] [place] [address], [place] [address] Sep, [facility] [address] [id number] [address] [place] [address], [place] [address] Sep, [facility] [address] [id number] [address] [place] [address], [place] [address] Sep, [facility] [address] [id number] [address] [place] [address], [place] [address] Sep, [facility] [address] [id number] [address] [place] [address], [place] [address] Sep, [facility] [address] [id number] [address] [place] [address], [place] [address] August, [facility] [address] [id number] [address] [place] [address], [place] [address] August, [facility] [address] [id number] [address] [place] [address], [place] [address] 19 Jul, 2012 [facility] [address] [id number] [address] [place] [address], [place] [address] 19 Jul, 2012 [facility] [address] [id number] [address] [place] [address], [place] [address] 15 Jul, 2012 [facility] [address] [id number] [address] [place] [address], [place] [address] 09 Jul, 2012 [facility] [address] [id number] [address] [place] [address], [place] [address] 08 Jul, 2012 [facility] [address] [id number] [address] [place] [address], [place] [address] 26 Jun, 2012 [facility] [address] [id number] [address] [place] [address], [place] [address] Jun, [facility] [address] [id number] [address] [place] [address], [place] [address] Jun, [facility] [address] [id number] [address] [place] [address], [place] [address] 06 Jun, 2012 [facility] [address] [id number] [address] [place] [address], [place] [address] Jun, [facility] [address] [id number] [address] [place] [address], [place] [address] 28 May, 2012 [facility] [address] [id number] [address] [place] [address], [place] [address] 27 May, 2012 [facility] [address] [id number] [address] [place] [address], [place] [address] 25 May, 2012 [facility] [address] [id number] [address] [place] [address], [place] [address] 21 May, 2012 [facility] [address] [id number] [address] [place] [address], [place] [address] 20 May, 2012 [facility] [address] [id number] [address] [place] [address], [place] [address] 14 May, 2012 [facility] [address] [id number] [address] [place] [address], [place] [address] 13 May, 2012 [facility] [address] [id number] [address] [place] [address], [place] [address] 08 May, 2012 [facility] [address] [id number] [address] [place] [address], [place] [address] 04 May, 2012 [facility] [address] [id number] [address] [place] [address], [place] [address] Apr, [facility] [address] [id number] [address] [place] [address], [place] [address] Apr, [facility] [address] [id number] [address] [place] [address], [place] [address] Apr, [facility] [address] [id number] [address] [place] [address], [place] [address] Apr, [facility] [address] [id number] [address] [place] [address], [place] [address] Apr, [facility] [address] [id number] [address] [place] [address], [place] [address] Mar, [facility] [address] [id number] [address] [place] [address], [place] [address] Mar, [facility] [address] [id number] [address] [place] [address], [place] [address] Mar, [facility] [address] [id number] [address] [place] [address], [place] [address] Mar, [facility] [address] [id number] [address] [place] [address], [place] [address] Mar, [facility] [address] [id number] [address] [place] [address], [place] [address] Mar, [facility] [address] [id number] [address] [place] [address], [place] [address] 17 Mar, 2012 [facility] [address] [id number] [address] [place] [address], [place] [address] 17 Mar, 2012 [facility] [address] [id number] [address] [place] [address], [place] [address] 07 Mar, 2012 [facility] [address] [id number] [address] [place] [address], [place] [address] 07 Mar, 2012 [facility] [address] [id number] [address] [place] [address], [place] [address] 30 Feb, 2012 [facility] [address] [id number] [address] [place] [address], [place] [address] 30 Feb, 2012 [facility] [address] [id number] [address] [place] [address], [place] [address] 29 Feb, 2012 [facility] [address] [id number] [address] [place] [address], [place] [address] 29 Feb, 2012 [facility] [address] [id number] [address] [place] [address], [place] [address] Feb, [facility] [address] [id number] [address] [place] [address], [place] [address] 23 Feb, 2012 [facility] [address] [id number] [address] [place] [address], [place] [address] Feb, [facility] [address] [id number] [address] [place] [address], [place] [address] 20 Feb, 2012 [facility] [address] [id number] [address] [place] [address], [place] [address] 16 Feb, 2012 [facility] [address] [id number] [address] [place] [address], [place] [address] 16 Feb, 2012 [facility] [address] [id number] [address] [place] [address], [place] [address] 13 Feb, 2012 [facility] [address] [id number] [address] [place] [address], [place] [address] 13 Feb, 2012 [facility] [address] [id number] [address] [place] [address], [place] [address] 12 Feb, 2012 [facility] [address] [id number] [address] [place] [address], [place] [address] Feb, [facility] [address] [id number] [address] [place] [address], [place] [address] Feb, [facility] [address] [id number] [address] [place] [address], [place] [address] Feb, [facility] [address] [id number] [address] [place] [address], [place] [address] Feb, [facility] [address] [id number] [address] [place] [address], [place] [address] Feb, [facility] [address] [id number] [address] [place] [address], [place] [address] Jan, [facility] [address] [id number] [address] [place] [address], [place] [address] Jan, [facility] [address] [id number] [address] [place] [address], [place] [address] Jan, [facility] [address] [id number] [address] [place] [address], [place] [address] Jan, [facility] [address] [id number] [address] [place] [address], [place] [address] Jan, [facility] [address] [id number] [address] [place] [address], [place] [address] Jan, [facility] [address] [id number] [address] [place] [address] Jan, [facility] [address] [id number] [address] [place] [address], [place] [address] Jan, [facility] [address] [id number] [address] [place] [address], [place] [address] Jan, [facility] [address] [id number] [address] [place] [address] Jan, [facility] [address] [id number] [address] [place] [address] 24 Dec, 2011 [facility] [address] [id number] [address] [place] [address], [place] [address] 18 Dec, 2011 [facility] [address] [id number] [address] [place] [address], [place] [address] Dec, [facility] [address] [id number] [address] [place] [address], [place] [address] Dec, [facility] [address] [id number] [address] [place] [address], [place] [address] Nov, [facility] [address] [id number] [address] [place] [address], [place] [address] Nov, [facility] [address] [id number] [address] [place] [address], [place] [address] Nov, [facility] [address] [id number] [address] [place] [address], [place] [address] Nov, [facility] [address] [id number] [address] [place] [address], [place] [address] Nov, [facility] [address] [id number] [address] [place] [address], [place] [address] Nov, [facility] [address] [id number] [address] [place] [address], [place] [address] Oct, [facility] [address] [id number] [address] [place] [address], [place] [address] Oct, [facility] [address] [id number] [address] [place] [address], [place] [address] Oct, [facility] [address] [id number] [address] [place] [address], [place] [address] Oct, [facility] [address] [id number] [address] [place] [address], [place] [address] Oct, [facility] [address] [id number] [address] [place] [address], [place] [address] Sep, [facility] [address] [id number] [address] [place] [address], [place] [address] 20 Sep, 2011 [facility] [address] [id number] [address] [place] [address], [place] [address] Sep, [facility] [address] [id number] [address] [place] [address], [place] [address] 07 Sep, 2011 [facility] [address] [id number] [address] [place] [address], [place] [address] 05 Sep, 2011 [facility] [address] [id number] [address] [place] [address], [place] [address] August, [facility] [address] [id number] [address] [place] [address], [place] [address] August, [facility] [address] [id number] [address] [place] [address], [place] [address] August, [facility] [address] [id number] [address] [place] [address], [place] [address] August, [facility] [address] [id number] [address] [place] [address], [place] [address] 27 Jul, 2011 [facility] [address] [id number] [address] [place] [address], [place] [address] 24 Jul, 2011 [facility] [address] [id number] [address] [place] [address], [place] [address] Jul, [facility] [address] [id number] [address] [place] [address], [place] [address] 18 Jul, 2011 [facility] [address] [id number] [address] [place] [address], [place] [address] 18 Jul, 2011 [facility] [address] [id number] [address] [place] [address], [place] [address] 12 Jul, 2011 [facility] [address] [id number] [address] [place] [address], [place] [address] 11 Jul, 2011 [facility] [address] [id number] [address] [place] [address], [place] [address] 10 Jul, 2011 [facility] [address] [id number] [address] [place] [address], [place] [address] Jul, [facility] [address] [id number] [address] [place] [address], [place] [address] Jul, [facility] [address] [id number] [address] [place] [address], [place] [address] 05 Jul, 2011 [facility] [address] [id number] [address] [place] [address], [place] [address] Jul, [facility] [address] [id number] [address] [place] [address], [place] [address] Jul, [facility] [address] [id number] [address] [place] [address], [place] [address] Jul, [facility] [address] [id number] [address] [place] [address], [place] [address] Jun, [facility] [address] [id number] [address] [place] [address], [place] [address] Jun, [facility] [address] [id number] [address] [place] [address], [place] [address] Jun, [facility] [address] [id number] [address] [place] [address], [place] [address] Jun, [facility] [address] [id number] [address] [place] [address], [place] [address] May, [facility] [address] [id number] [address] [place] [address], [place] [address] May, [facility] [address] [id number] [address] [place] [address], [place] [address] May, [facility] [address] [id number] [address] [place] [address], [place] [address] Apr, [facility] [address] [id number] [address] [place] [address], [place] [address] Apr, [facility] [address] [id number] [address] [place] [address], [place] [address] 13 Apr, 2011 [facility] [address] [id number] [address] [place] [address], [place] [address] 11 Apr, 2011 [facility] [address] [id number] [address] [place] [address], [place] [address] 09 Apr, 2011 [facility] [address] [id number] [address] [place] [address], [place] [address] Mar, [facility] [address] [id number] [address] [place] [address], [place] [address] Mar, [facility] [address] [id number] [address] [place] [address], [place] [address] Mar, [facility] [address] [id number] [address] [place] [address], [place] [address] Mar, [facility] [address] [id number] [address] [place] [address], [place] [address] 16 Mar, 2011 [facility] [address] [id number] [address] [place] [address], [place] [address] Mar, [facility] [address] [id number] [address] [place] [address], [place] [address] 05 Mar, 2011 [facility] [address] [id number] [address] [place] [address], [place] [address] 29 Feb, 2011 [facility] [address] [id number] [address] [place] [address], [place] [address] 25 Feb, 2011 [facility] [address] [id number] [address] [place] [address], [place] [address] Feb, [facility] [address] [id number] [address] [place] [address], [place] [address] Feb, [facility] [address] [id number] [address] [place] [address], [place] [address] 16 Feb, 2011 [facility] [address] [id number] [address] [place] [address], [place] [address] 14 Feb, 2011 [facility] [address] [id number] [address] [place] [address], [place] [address] 10 Feb, 2011 [facility] [address] [id number] [address] [place] [address], [place] [address] 31 Jan, 2011 [facility] [address] [id number] [address] [place] [address], [place] [address] 31 Jan, 2011 [facility] [address] [id number] [address] [place] [address], [place] [address] 31 Jan, 2011 [facility] [address] [id number] [address] [place] [address], [place] [address] 18 Jan, 2011 [facility] [address] [id number] [address] [place] [address], [place] [address] 17 Jan, 2011 [facility] [address] [id number] [address] [place] [address], [place] [address] 17 Jan, 2011 [facility] [address] [id number] [address] [place] [address], [place] [address] 17 Jun, 2010 [facility] [address] [id number] [address] [place] [address], [place] [address] 30 Mar, 2010 [facility] [address] [id number] [address] [place] [address], [place] [address] 20 Mar, 2010 [facility] [address] [id number] [address] [place] [address], [place] [address] 14 Mar, 2010 [facility] [address] [id number] [address] [place] [address], [place] [address] 14 Mar, 2010 [facility] [address] [id number] [address] [place] [address], [place] [address] 13 Mar, 2010 [facility] [address] [id number] [address] [place] [address], [place] [id number] 07 Mar, 2010 [facility] [address] [id number] [address] [place] [address], [place] [address] 02 Mar, 2010 [facility] [address] [id number] [address] [place] [address], [place] [address] Mar, [facility] [address] [id number] [address] [place] [address], [place] [id number] 30 Feb, 2010 [facility] [address] [id number] [address] [place] [address], [place] [address] Feb, [facility] [address] [id number] [address] [place] [address], [place] [address] Feb, [facility] [address] [id number] [address] [place] [address], [place] [address] Feb, [facility] [address] [id number] [address] [place] [address], [place] [address] 16 Feb, 2010 [facility] [address] [id number] [address] [place] [address], [place] [address] Feb, [facility] [address] [id number] [address] [place] [address], [place] [address] Feb, [facility] [address] [id number] [address] [place] [address], [place] [address] Feb, [facility] [address] [id number] [address] [place] [address], [place] [address] Jan, [facility] [address] [id number] [address] [place] [phone] Jan, [facility] [address] [id number] [address] [place] [phone] Jan, [facility] [address] [id number] [address] [place] [phone] Jan, [facility] [address] [id number] [address] [place] [address], [place] [address] Mar, [facility] [address] [id number] [address] [place] [phone] Mar, [facility] [address] [id number] [address] [place] [phone] Mar, [facility] [address] [id number] [address] [place] [phone] Mar, [facility] [address] [id number] [address] [place] [id number] 14 Mar, 2009 [facility] [address] [id number] [address] [place] [phone] Mar, [facility] [address] [id number] [address] [place] [id number] Feb, [facility] [address] [id number] [address] [place] [phone] Feb, [facility] [address] [facility] [id number] [address] [place] [phone] Jan, [facility] [address] [facility] [id number] [address] [place] [phone] Sep, [facility] [address] [facility] [id number] [address] [place] [phone] May, IMMUNIZATIONS No Known Immunizations SOCIAL HISTORY [...] Surgical History Left ear surgery Hospitalization History [facility] in [place]- Spontane ous Pneumothorax Hospitalization History [facility]- Colon resection Hospitalization History [facility] - diarrhea/ couldnt urin ate nov 2017 Hospitalization History pain /hip to foot right side 10/16/19 19
--- OUTSIDE RECORDS SUMMARY | 2019-08-28 08:49 | XMS REPORT ---
Author Author Dixon Lundberg Doctor Organization [facility] Address Unknown Phone Unavailable Care Team Providers Care Core Inspector Name Role Phone Migration, Doctor Unavailable Unavailable PROBLEMS Type Condition ICD9-CM Code HIC04-YK Code Onset Dates Condition S tatus SNOMED Code Problem Insomnia G47.00 Active 346962795 Problem Anxiety F41.9 Active 16422289 Problem HTN (hypertension) I10 Active 3 9498646 Problem Chronic pain G89.29 Active 7775214 1 Problem Constipation K59.00 Active 4053692 8 Problem Thoracic back pain, unspecif ied back pain laterality, unspecified chronicity M54.6 Active 476583331 Problem Hyperlipidemia E78.5 Active 64058 004 Problem Vitamin D deficiency E55.9 Active 70382502 Problem Chronic kidney disease, stage III (moderate) N18.3 Active 573068919 Problem Vision loss H54.7 Active 45082675 1 Problem Age-related cataract of both eyes, unspecified age-related cataract type H25.9 Active 48951034 Problem Primary insomnia F51.01 Active 397 2004 Problem Psychophysiologic insomnia F51.04 Act saúl 898359720 Problem Environmental allergies Z91.09 Active 142915858 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 48970073 Problem Schizophrenia, unspecified type F20.9 Active 98473674 Problem Psychophysiological insomnia F51.04 A ctive 435701602 Problem Psychophysiological insomnia F51.04 A ctive [id number] ALLERGIES No Information ENCOUNTERS Encounter Location Date Diagnosis [facility] [address] [facility] [id number] [address] [place] [address] Jul, [facility] [address] [facility] [id number] [address] [place] [address] Jul, [facility] [address] [facility] [id number] [address] [place] [address] Jul, [facility] [address] [facility] [id number] [address] [place] [address] Jul, Thoracic back pain, unspecif ied back pain laterality, unspecified chronicity M54.6 [place] [address] [id number] [address] [place], [place] [address] Jul, Anxiety F41.9 and Thoracic b ack pain, unspecified back pain laterality, unspecified chronicity M54.6 [facility] [address] [id number] [address] [place] [address] Jun, [facility] [address] [id number] [address] [place] [address] Jun, Thoracic back pain, unspecif ied back pain laterality, unspecified chronicity M54.6 [place] [address] [id number] [address] [place] [address] Jun, [place] [address] [id number] [address] [place] [address] Jun, Anxiety F41.9 and Thoracic b ack pain, unspecified back pain laterality, unspecified chronicity M54.6 [place] [address] [id number] [address] [place] [address] Jun, [place] [address] [id number] [address] [place] [address] May, [place] [address] [id number] [address] [place] [address] May, Psychophysiologic insomnia F 51.04 [place] [address] [id number] [address] [place] [address] 13 May, 2019 Other constipation K59.09 [place] [address] [id number] [address] [place] [address] 11 May, 2019 Thoracic back pain, unspecif ied back pain laterality, unspecified chronicity M54.6 [facility] [address] [id number] [address] [place] [address] 06 May, 2019 Anxiety F41.9 and Thoracic b ack pain, unspecified back pain laterality, unspecified chronicity M54.6 [place] [address] [facility] [id number] [address] [place] [address] May, [place] [address] [facility] [id number] [address] [place] [address] Apr, [place] [address] [facility] [id number] [address] [place] [address] Apr, [place] [address] [facility] [id number] [address] [place] [address] Apr, Psychophysiological insomnia F51.04 [place] [address] [facility] [id number] [address] [place] [address] Apr, Thoracic back pain, unspecif ied back pain laterality, unspecified chronicity M54.6 [place] [address] [facility] [id number] [address] [place] [address] 10 Apr, 2019 Thoracic back pain, unspecif ied back pain laterality, unspecified chronicity M54.6 [place] [address] [facility] [id number] [address] [place] [address] Apr, Anxiety F41.9 [place] [address] [facility] [id number] [address] [place] [address] Apr, Psychophysiological insomnia F51.04 [place] [address] [place] [id number] [address] [place] [address] 30 Mar, 2019 Encounter for Medicare ann [...] both eyes, unspecified age-related cataract type H25.9 [place] [address] [id number] [address] [place] [address] Mar, Thoracic back pain, unspecif ied back pain laterality, unspecified chronicity M54.6 [facility] [address] [id number] [address] [place] [address] 16 Mar, 2019 Psychophysiological insomnia F51.04 [facility] [address] [id number] [address] [place] [address] Mar, Thoracic back pain, unspecif ied back pain laterality, unspecified chronicity M54.6 and Anxiety F41.9 [facility] [address] [id number] [address] [place] [address] Mar, Psychophysiological insomnia F51.04 [facility] [address] [id number] [address] [place] [address] Mar, [facility] [address] [facility] [id number] [address] [place] [address] Mar, Psychophysiological insomnia F51.04 [facility] [address] [id number] [address] [place] [address] Mar, [facility] [address] [id number] [address] [place] [address] Feb, [facility] [address] [id number] [address] [place] [address] Feb, Thoracic back pain, unspecif ied back pain laterality, unspecified chronicity M54.6 [facility] [address] [id number] [address] [place] [address] 14 Feb, 2019 Anxiety F41.9 and Thoracic b ack pain, unspecified back pain laterality, unspecified chronicity M54.6 [facility] [address] [facility] [id number] [address] [place] [address] 07 Feb, 2019 Insomnia G47.00 ; HTN (hyper tension) I10 and Constipation K59.00 [facility] [address] [id number] [address] [place] [address] Feb, [facility] [address] [id number] [address] [place] [address] Jan, Thoracic back pain, unspecif ied back pain laterality, unspecified chronicity M54.6 [facility] [address] [id number] [address] [place] [address] Jan, Anxiety F41.9 [facility] [address] [id number] [address] [place] [address] Jan, Anxiety F41.9 [facility] [address] [id number] [address] [place] [address] Jan, Anxiety F41.9 and Thoracic b ack pain, unspecified back pain laterality, unspecified chronicity M54.6 [facility] [address] [id number] [address] [place] [address] Jan, [facility] [address] [id number] [address] [place] [address] Jan, [facility] [address] [id number] [address] [place] [address] Dec, Thoracic back pain, unspecif ied back pain laterality, unspecified chronicity M54.6 [facility] [address] [id number] [address] [place] [address] Dec, Thoracic back pain, unspecif ied back pain laterality, unspecified chronicity M54.6 [facility] [address] [id number] [address] [place] [address] Nov, Thoracic back pain, unspecif ied back pain laterality, unspecified chronicity M54.6 [facility] [address] [id number] [address] [place] [address] Nov, Anxiety F41.9 and Thoracic b ack pain, unspecified back pain laterality, unspecified chronicity M54.6 [facility] [address] [id number] [address] [place] [address] Nov, [facility] [address] [id number] [address] [place] [address] Nov, [facility] [address] [id number] [address] [place] [address] Nov, [facility] [address] [id number] [address] [place] [address] Oct, Thoracic back pain, unspecif ied back pain laterality, unspecified chronicity M54.6 [facility] [address] [id number] [address] [place] [address] Oct, Anxiety F41.9 and Thoracic b ack pain, unspecified back pain laterality, unspecified chronicity M54.6 [facility] [address] [id number] [address] [place] [address] Oct, Schizophrenia, unspecified t ype F20.9 and Acute kidney injury N17.9 [facility] [address] [id number] [address] [place] [address] Oct, [facility] [address] [id number] [address] [place] [address] Oct, [facility] [address] [id number] [address] [place] [address] Oct, Thoracic back pain, unspecif ied back pain laterality, unspecified chronicity M54.6 [facility] [address] [id number] [address] [place] [address] Oct, [facility] [address] [id number] [address] [place] [address] Oct, [facility] [address] [id number] [address] [place] [address] Sep, Anxiety F41.9 [facility] [address] [id number] [address] [place] [address] Sep, [facility] [address] [id number] [address] [place] [address] Sep, Thoracic back pain, unspecif ied back pain laterality, unspecified chronicity M54.6 [facility] [address] [id number] [address] [place] [address] Sep, [facility] [address] [id number] [address] [place] [address] Sep, [facility] [address] [id number] [address] [place] [address] Sep, [facility] [address] [id number] [address] [place] [address] Sep, [facility] [address] [id number] [address] [place] [address] Sep, [facility] [address] [id number] [address] [place] [address] Sep, [facility] [address] [id number] [address] [place] [address] Sep, Chronic pain G89.29 ; Chroni c kidney disease, stage III (moderate) N18.3 ; Hyperlipidemia E78.5 and Insomnia G47.00 [facility] [address] [id number] [address] [place] [address] Sep, Thoracic back pain, unspecif ied back pain laterality, unspecified chronicity M54.6 [facility] [address] [facility] [id number] [address] [place] [address] August, Anxiety F41.9 [facility] [address] [id number] [address] [place] [address] August, Thoracic back pain, unspecif ied back pain laterality, unspecified chronicity M54.6 and Anxiety F41.9 [facility] [address] [id number] [address] [place] [address] August, 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 [facility] [address] [facility] [id number] [address] [place] [address] August, 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 [facility] [address] [id number] [address] [place] [address] August, [facility] [address] [id number] [address] [place] [address] August, [facility] [address] [id number] [address] [place] [address] August, Thoracic back pain, unspecif ied back pain laterality, unspecified chronicity M54.6 [facility] [address] [id number] [address] [place] [address] August, [facility] [address] [id number] [address] [place] [address] August, Anxiety F41.9 and Thoracic b ack pain, unspecified back pain laterality, unspecified chronicity M54.6 [facility] [address] [id number] [address] [place] [address] Jul, [facility] [address] [id number] [address] [place] [address] Jul, Thoracic back pain, unspecif ied back pain laterality, unspecified chronicity M54.6 [facility] [address] [id number] [address] [place] [address] Jun, Anxiety F41.9 and Thoracic b ack pain, unspecified back pain laterality, unspecified chronicity M54.6 [facility] [address] [id number] [address] [place] [address] Jun, Anxiety F41.9 and Thoracic b ack pain, unspecified back pain laterality, unspecified chronicity M54.6 [facility] [address] [id number] [address] [place] [address] Jun, Thoracic back pain, unspecif ied back pain laterality, unspecified chronicity M54.6 [facility] [address] [id number] [address] [place] [address] Jun, Anxiety F41.9 and Thoracic b ack pain, unspecified back pain laterality, unspecified chronicity M54.6 [facility] [address] [id number] [address] [place] [address] May, [facility] [address] [id number] [address] [place] [address] May, [facility] [address] [id number] [address] [place] [address] May, [facility] [address] [id number] [address] [place] [address] May, Anxiety F41.9 and Encounter for medication monitoring Z51.81 [facility] [address] [id number] [address] [place] [address] May, Anxiety F41.9 and Thoracic b ack pain, unspecified back pain laterality, unspecified chronicity M54.6 [facility] [address] [id number] [address] [place] [address] Apr, Hyperlipidemia 272.4 [facility] [address] [id number] [address] [place] [address] Apr, Chronic pain G89.29 ; Anxiet y F41.9 ; Cervical radiculopathy M54.12 and Vision loss H54.7 [place] [address] [id number] [address] [place] [address] Apr, [facility] [address] [id number] [address] [place] [address] Apr, Anxiety F41.9 and Thoracic b ack pain, unspecified back pain laterality, unspecified chronicity M54.6 [facility] [address] [id number] [address] [place] [address] Mar, [facility] [address] [id number] [address] [place] [address] Mar, Anxiety F41.9 and Thoracic b ack pain, unspecified back pain laterality, unspecified chronicity M54.6 [facility] [address] [id number] [address] [place] [address] 14 Feb, 2018 Anxiety F41.9 and Thoracic b ack pain, unspecified back pain laterality, unspecified chronicity M54.6 [facility] [address] [id number] [address] [place] [address] 07 Feb, 2018 Thoracic back pain, unspecif ied back pain laterality, unspecified chronicity M54.6 [facility] [address] [id number] [address] [place] [address] 29 Jan, 2018 [facility] [address] [id number] [address] [place] [address] 16 Jan, 2018 Anxiety F41.9 and Thoracic b ack pain, unspecified back pain laterality, unspecified chronicity M54.6 [facility] [address] [id number] [address] [place] [address] 19 Dec, 2017 Diarrhea of presumed infecti ous origin R19.7 [facility] [address] [id number] [address] [place] [address] 19 Dec, 2017 Diarrhea of presumed infecti ous origin R19.7 [facility] [address] [id number] [address] [place] [address] 18 Dec, 2017 Thoracic back pain, unspecif ied back pain laterality, unspecified chronicity M54.6 [facility] [address] [id number] [address] [place] [address] 17 Dec, 2017 [facility] [address] [id number] [address] [place] [address] 17 Dec, 2017 Anxiety F41.9 and Thoracic b ack pain, unspecified back pain laterality, unspecified chronicity M54.6 [facility] [address] [id number] [address] [place] [address] 13 Dec, 2017 Diarrhea of presumed infecti ous origin R19.7 [facility] [address] [address] 13 Dec, 2017 [place] [address] [address] Dec, Anxiety F41.9 and Thoracic b ack pain, unspecified back pain laterality, unspecified chronicity M54.6 [place] [address] [address] Dec, Anxiety F41.9 and Thoracic b ack pain, unspecified back pain laterality, unspecified chronicity M54.6 [facility] [employer] [address] [place] [id number] Dec, Diarrhea of presumed infectious origin R 19.7 ; Anxiety F41.9 ; Thoracic back pain, unspecified back pain laterality, unspecified chronicity M54.6 and HTN (hypertension) I10 [address] [address] Dec, Anxiety F41.9 [facility] [employer] [address] [place] [id number] Dec, Anxiety F41.9 ; Diarrhea of presumed inf ectious origin R19.7 ; Generalized abdominal pain R10.84 and Localized edema R60.0 [place] [address] [address] Nov, [facility] [address] [place] [id number] Nov, Anxiety F41.9 ; Urinary retention R33.9 ; Diarrhea of presumed infectious origin R19.7 ; Weakness R53.1 ; Acute kidney failure, unspecified N17.9 ; Chronic kidney disease, stage III (moderate) N18.3 and Thoracic back pain, unspecified back pain laterality, unspecified chronicity M54.6 [place] [address] [address] Oct, Thoracic back pain, unspecif ied back pain laterality, unspecified chronicity M54.6 and Anxiety F41.9 [address] [place] [address] Sep, Thoracic back pain, unspecif ied back pain laterality, unspecified chronicity M54.6 and Anxiety F41.9 [facility] [address] [facility] [id number] [address] [place] [address] Sep, Thoracic back pain, unspecif ied back pain laterality, unspecified chronicity M54.6 ; Anxiety F41.9 and Encounter for medication monitoring Z51.81 [facility] [address] [facility] [id number] [address] [place] [address] August, [facility] [address] [facility] [id number] [address] [place] [address] August, Thoracic back pain, unspecif ied back pain laterality, unspecified chronicity M54.6 and Anxiety F41.9 [place] [id number] [facility] [id number] [address] [place] [address] August, Hyperlipidemia E78.5 and HTN (hypertension) I10 [place] [id number] [facility] [id number] [address] [place] [address] August, [place] [address] [place] [id number] [address] [place] [address] August, Medicare welcome exam Z00.00 ; Chronic kidney failure N18.9 ; Anxiety F41.9 ; Chronic pain G89.29 ; Insomnia G47.00 ; Hyperlipidemia E78.5 ; HTN (hypertension) I10 and Thoracic back pain, unspecified back pain laterality, unspecified chronicity M54.6 [facility] [address] [facility] [id number] [address] [place] [address] Jul, [facility] [address] [facility] [id number] [address] [place] [id number] Jul, [facility] [address] [facility] [id number] [address] [place] [id number] Jul, [facility] [address] [facility] [id number] [address] [place] [id number] Jul, Anxiety F41.9 [facility] [address] [facility] [id number] [address] [place] [id number] Jul, Thoracic back pain, unspecif ied back pain laterality, unspecified chronicity M54.6 and Anxiety F41.9 [place] [address] [facility] [id number] [address] [place] [id number] Jun, Thoracic back pain, unspecif ied back pain laterality, unspecified chronicity M54.6 and Anxiety F41.9 [place] [address] [facility] [id number] [address] [place] [id number] May, Thoracic back pain, unspecif ied back pain laterality, unspecified chronicity M54.6 and Anxiety F41.9 [place] [address] [place] [id number] [address] [place] [id number] Apr, Thoracic back pain, unspecif ied back pain laterality, unspecified chronicity M54.6 and Anxiety F41.9 [place] [address] [facility] [id number] [address] [place] [id number] Mar, [place] [address] [place] [id number] [place] [phone] Mar, Thoracic back pain, unspecif ied back pain laterality, unspecified chronicity M54.6 and Anxiety F41.9 [place] [address] [place] [id number] [place] [id number] Mar, Thoracic back pain, unspecif ied back pain laterality, unspecified chronicity M54.6 ; HTN (hypertension) I10 ; Hyperlipidemia E78.5 and Anxiety F41.9 [place] [address] [facility] [id number] [address] [place] [address] Feb, Thoracic back pain, unspecif ied back pain laterality, unspecified chronicity M54.6 and Anxiety F41.9 [place] [address] [address] [facility] [id number] [address] [place] [address] Nov, [place] [address] [address] [facility] [id number] [address] [place] [address] Oct, [facility] [address] [place] [id number] [address] [place] [address] Oct, Thoracic back pain, unspecif ied back pain laterality, unspecified chronicity M54.6 [facility] [address] [place] [id number] [address] [place] [address] Oct, HTN (hypertension) I10 ; Con stipation K59.00 ; Hyperlipidemia E78.5 ; Thoracic back pain, unspecified back pain laterality, unspecified chronicity M54.6 ; Chronic pain G89.29 ; Anxiety F41.9 ; Chronic kidney failure N18.9 ; Environmental allergies Z91.09 ; Vitamin D deficiency E55.9 and Primary insomnia F51.01 [facility] [address] [id number] [address] [place] [address] Sep, Anxiety F41.9 [facility] [address] [place] [id number] [address] [place] [address] Sep, [facility] [address] [id number] [address] [place] [address] August, Anxiety F41.9 [facility] [address] [id number] [address] [place] [address] August, [facility] [address] [id number] [address] [place] [address] Jul, Anxiety F41.9 [facility] [address] [facility] [id number] [address] [place] [address] Jul, [facility] [address] [id number] [address] [place] [address] Jun, Anxiety F41.9 [facility] [address] [id number] [address] [place] [address] Jun, [facility] [address] [id number] [address] [place] [address] May, [facility] [address] [id number] [address] [place] [address] May, [facility] [address] [address] May, [facility] [address] [id number] [address] [place] [address] Apr, [facility] [address] [id number] [place] [address] Apr, [facility] [address] [address] Apr, Anxiety F41.9 [facility] [address] [address] Apr, Anxiety F41.9 [facility] [address] [place] [id number] [address] [place] [address] Apr, [facility] [address] [place] [id number] [address] [place] [address] Mar, HTN (hypertension) I10 ; Phillip mor R25.1 ; Hypercholesterolemia E78.0 ; Constipation K59.00 ; Chronic pain G89.29 ; Hyperlipidemia E78.5 ; Insomnia G47.00 ; Anxiety F41.9 and Thoracic back pain, unspecified back pain laterality, unspecified chronicity M54.6 [facility] [address] [place] [address] Mar, Tremor R25.1 ; HTN (hyperten stas) I10 ; Hypercholesterolemia E78.0 ; Constipation K59.00 ; Chronic pain G89.29 ; Hyperlipidemia E78.5 ; Insomnia G47.00 ; Anxiety F41.9 and Thoracic back pain, unspecified back pain laterality, unspecified chronicity M54.6 [facility] [address] [id number] [address] [place] [address] Mar, [facility] [address] [place] [id number] [address] [place] [address] Mar, [facility] [address] [id number] [address] [place] [address] Feb, [facility] [address] [id number] [address] [place] [address] Jan, [facility] [address] [id number] [address] [place] [address] Jan, [facility] [address] [id number] [address] [place] [address] Dec, [facility] [address] [id number] [address] [place] [address] Nov, [facility] [address] [id number] [address] [place] [address] Nov, [facility] [address] [facility] [id number] [address] [place] [address] Oct, Anxiety F41.9 [facility] [address] [id number] [address] [place] [address] Oct, Chronic pain G89.29 [facility] [address] [id number] [address] [place] [address] Sep, [facility] [address] [id number] [address] [place] [address] Sep, [facility] [address] [facility] [id number] [address] [place] [address] Sep, [facility] [address] [id number] [address] [place] [address] Sep, [facility] [address] [id number] [address] [place] [address] 16 Sep, 2015 Chronic pain syndrome G89.4 [facility] [address] [facility] [id number] [address] [place] [address] 15 Sep, 2015 HTN (hypertension) I10 ; Chr onic pain G89.29 ; Hypercholesterolemia E78.0 ; Chronic kidney failure N18.9 ; Constipation, unspecified constipation type K59.00 ; Anxiety F41.9 and Thoracic back pain, unspecified back pain laterality, unspecified chronicity M54.6 [facility] [address] [id number] [address] [place] [address] August, Chronic pain syndrome G89.4 [facility] [address] [facility] [id number] [address] [place] [address] August, Chronic pain syndrome G89.4 [facility] [address] [id number] [address] [place] [address] Jul, Anxiety disorder, unspecifie d F41.9 and Chronic pain syndrome G89.4 [facility] [address] [facility] [id number] [address] [place] [address] Jul, Insomnia, unspecified G47.00 and Chronic pain syndrome G89.4 [facility] [address] [facility] [id number] [address] [place] [address] Jul, Allergic rhinitis J30.9 [facility] [address] [id number] [address] [place] [address] Jul, Constipation, unspecified K5 9.00 [facility] [address] [id number] [address] [place] [address] Jul, [facility] [address] [id number] [address] [place] [address] Jun, [facility] [address] [id number] [address] [place] [address] Jun, [facility] [address] [id number] [address] [place] [address] Jun, [facility] [address] [id number] [address] [place] [address] Jun, [facility] [address] [facility] [id number] [address] [place] [address] Jun, [facility] [address] [facility] [id number] [address] [place] [address] Jun, [facility] [address] [facility] [id number] [address] [place] [address] May, [facility] [address] [facility] [id number] [address] [place] [address] May, [facility] [address] [facility] [id number] [address] [place] [address] May, Anxiety F41.9 ; Insomnia G47 .00 ; Hyperlipidemia E78.5 ; Chronic pain G89.29 ; HTN (hypertension) I10 ; Environmental allergies V15.09 and Constipation 564.00 [facility] [address] [facility] [id number] [address] [place] [address] Apr, [facility] [address] [place] [id number] [address] [place] [address] Apr, [facility] [address] [place] [id number] [address] [place] [address] Apr, [facility] [address] [place] [id number] [address] [place] [address] Mar, [facility] [address] [facility] [id number] [address] [place] [address] Mar, [facility] [address] [facility] [id number] [address] [place] [address] Mar, [facility] [address] [facility] [id number] [address] [place] [address] Feb, [facility] [address] [facility] [id number] [address] [place] [address] Feb, [facility] [address] [facility] [id number] [address] [place] [address] Feb, [facility] [address] [facility] [id number] [address] [place] [address] 15 Jan, 2015 HTN (hypertension) I10 ; Con stipation K59.00 ; Chronic pain G89.29 ; Hyperlipidemia E78.5 ; Hypercholesterolemia E78.0 ; Insomnia G47.00 and Anxiety F41.9 [facility] [address] [address] Jan, [facility] [address] [place] [id number] [address] [place] [address] Dec, [facility] [address] [address] Nov, [facility] [address] [address] Oct, Chronic kidney disease, unsp ecified 585.9 ; Chronic pain syndrome 338.4 ; Hyperlipidemia 272.4 and Essential hypertension 401.9 [facility] [address] [place] [id number] [address] [place] [address] Oct, Chronic kidney disease 585.9 [facility] [address] [address] Oct, [facility] [address] [place] [id number] [address] [place] [address] Oct, Chronic kidney disease, unsp ecified 585.9 ; Hypercalcemia 275.42 ; Hyperlipidemia 272.4 ; Essential hypertension 401.9 ; Chronic pain syndrome 338.4 ; Insomnia 780.52 ; Constipation 564.00 ; Environmental allergies V15.09 and Anxiety 300.00 [facility] [address] [place] [id number] [address] [place] [address] Oct, Chronic kidney disease 585.9 [facility] [address] [place] [id number] [address] [place] [address] Oct, [facility] [address] [place] [id number] [address] [place] [address] Oct, Chronic kidney disease 585.9 and Hyperlipidemia 272.4 [facility] [address] [place] [id number] [address] [place] [address] Oct, [facility] [address] [id number] [address] [place] [address] 10 Oct, 2014 [facility] [address] [id number] [address] [place] [address], [place] [address] 18 Sep, 2014 [facility] [address] [id number] [address] [place] [address], [place] [address] 15 Sep, 2014 [facility] [address] [id number] [address] [place] [address] Sep, Chronic kidney disease 585.9 and Hyperlipidemia 272.4 [facility] [address] [id number] [address] [place] [address], [place] [address] Sep, [facility] [address] [id number] [address] [place] [address], [place] [address] August, [facility] [address] [id number] [address] [place] [address], [place] [address] August, [facility] [address] [id number] [address] [place] [address] 14 Jul, 2014 [facility] [address] [id number] [address] [place] [address], [place] [address] Jul, [facility] [address] [id number] [address] [place] [address] 20 Jun, 2014 [facility] [address] [id number] [address] [place] [address] Jun, [facility] [address] [id number] [address] [place] [address] 16 Jun, 2014 [facility] [address] [id number] [address] [place] [address], [place] [address] 16 Jun, [address] [facility] [address] [id number] [address] [place] [address], [place] [address] 09 Jun, 2014 [facility] [address] [id number] [address] [place] [address] 09 Jun, 2014 [facility] [address] [id number] [address] [place] [address] Jun, [facility] [address] [id number] [address] [place] [address], [place] [address] Jun, [facility] [address] [id number] [address] [place] [address], [place] [address] May, [facility] [address] [id number] [address] [place] [address], [place] [address] May, [facility] [address] [id number] [address] [place] [address], [place] [address] May, [facility] [address] [id number] [address] [place] [address], [place] [address] May, [facility] [address] [id number] [address] [place] [address], [place] [address] Apr, [facility] [address] [id number] [address] [place] [address], [place] [address] Apr, [facility] [address] [id number] [address] [place] [address], [place] [address] Apr, [facility] [address] [id number] [address] [place] [address], [place] [address] Apr, [facility] [address] [id number] [address] [place] [address], [place] [address] Apr, [facility] [address] [id number] [address] [place] [address], [place] [address] Apr, [facility] [address] [id number] [address] [place] [address], [place] [address] Apr, [facility] [address] [id number] [address] [place] [address], [place] [address] Apr, [facility] [address] [id number] [address] [place] [address], [place] [address] Apr, [facility] [address] [id number] [address] [place] [address], [place] [address] Apr, [facility] [address] [id number] [address] [place] [address], [place] [address] Apr, [facility] [address] [id number] [address] [place] [address], [place] [address] Mar, [facility] [address] [id number] [address] [place] [address], [place] [address] Mar, [facility] [address] [id number] [address] [place] [address], [place] [address] Feb, [facility] [address] [id number] [address] [place] [address], [place] [address] Feb, [facility] [address] [id number] [address] [place] [address], [place] [address] Feb, [facility] [address] [id number] [address] [place] [address], [place] [address] Feb, [facility] [address] [id number] [address] [place] [address], [place] [address] Feb, [facility] [address] [id number] [address] [place] [address], [place] [address] Feb, [facility] [address] [id number] [address] [place] [address], [place] [address] Feb, [facility] [address] [id number] [address] [place] [address], [place] [address] Feb, [facility] [address] [id number] [address] [place] [address], [place] [address] Feb, [facility] [address] [id number] [address] [place] [address], [place] [address] Feb, [facility] [address] [id number] [address] [place] [address], [place] [address] Jan, [facility] [address] [id number] [address] [place] [address], [place] [address] Jan, [facility] [address] [id number] [address] [place] [address], [place] [address] Jan, [facility] [address] [id number] [address] [place] [address], [place] [address] Jan, [facility] [address] [id number] [address] [place] [address], [place] [address] 24 Jan, 2014 [facility] [address] [id number] [address] [place] [address], [place] [address] 24 Jan, 2014 [facility] [address] [id number] [address] [place] [address], [place] [address] Jan, [facility] [address] [id number] [address] [place] [address], [place] [address] 17 Jan, 2014 [facility] [address] [id number] [address] [place] [address], [place] [address] 16 Jan, 2014 [facility] [address] [id number] [address] [place] [address], [place] [address] Jan, [facility] [address] [id number] [address] [place] [address], [place] [address] Jan, [facility] [address] [id number] [address] [place] [address], [place] [address] 26 Dec, 2013 [facility] [address] [id number] [address] [place] [address], [place] [address] 26 Dec, 2013 [facility] [address] [id number] [address] [place] [address], [place] [address] 19 Dec, 2013 [facility] [address] [id number] [address] [place] [address] 19 Dec, 2013 [facility] [address] [id number] [address] [place] [address], [place] [address] 18 Dec, 2013 [facility] [address] [id number] [address] [place] [address], [place] [address] 18 Dec, 2013 [facility] [address] [id number] [address] [place] [address], [place] [address] 03 Dec, 2013 [facility] [address] [id number] [address] [place] [address], [place] [address] Dec, [facility] [address] [id number] [address] [place] [address], [place] [address] Nov, [facility] [address] [id number] [address] [place] [address], [place] [address] Nov, [facility] [address] [id number] [address] [place] [address], [place] [address] Nov, [facility] [address] [id number] [address] [place] [address], [place] [address] Nov, [facility] [address] [id number] [address] [place] [address], [place] [address] Nov, [facility] [address] [id number] [address] [place] [address], [place] [address] Nov, [facility] [address] [id number] [address] [place] [address], [place] [address] Nov, [facility] [address] [id number] [address] [place] [address], [place] [address] Nov, [facility] [address] [id number] [address] [place] [address], [place] [address] Oct, [facility] [address] [id number] [address] [place] [address], [place] [address] Oct, [facility] [address] [id number] [address] [place] [address], [place] [address] Oct, [facility] [address] [id number] [address] [place] [address], [place] [address] Oct, [facility] [address] [id number] [address] [place] [address], [place] [address] Sep, [facility] [address] [id number] [address] [place] [address], [place] [address] Sep, [facility] [address] [id number] [address] [place] [address], [place] [address] Sep, [facility] [address] [id number] [address] [place] [address], [place] [address] Sep, [facility] [address] [id number] [address] [place] [address], [place] [address] Sep, [facility] [address] [id number] [address] [place] [address], [place] [address] Sep, [facility] [address] [id number] [address] [place] [address], [place] [address] Sep, [facility] [address] [id number] [address] [place] [address], [place] [address] Sep, [facility] [address] [id number] [address] [place] [address], [place] [address] August, [facility] [address] [id number] [address] [place] [address], [place] [address] August, [facility] [address] [id number] [address] [place] [address], [place] [address] August, [facility] [address] [id number] [address] [place] [address], [place] [address] August, [facility] [address] [id number] [address] [place] [address], [place] [address] August, [facility] [address] [id number] [address] [place] [address], [place] [address] August, [facility] [address] [id number] [address] [place] [address], [place] [address] August, [facility] [address] [id number] [address] [place] [address], [place] [address] August, [facility] [address] [id number] [address] [place] [address], [place] [address] August, [facility] [address] [id number] [address] [place] [address], [place] [address] August, [facility] [address] [id number] [address] [place] [address], [place] [address] Jul, [facility] [address] [id number] [address] [place] [address], [place] [address] Jul, [facility] [address] [id number] [address] [place] [address], [place] [address] Jul, [facility] [address] [id number] [address] [place] [address], [place] [address] Jul, [facility] [address] [id number] [address] [place] [address], [place] [address] Jul, [facility] [address] [id number] [address] [place] [address], [place] [address] Jul, [facility] [address] [id number] [address] [place] [address], [place] [address] Jul, [facility] [address] [id number] [address] [place] [address], [place] [address] Jul, [facility] [address] [id number] [address] [place] [address], [place] [address] Jun, [facility] [address] [id number] [address] [place] [address], [place] [address] Jun, [facility] [address] [id number] [address] [place] [address], [place] [address] Jun, [facility] [address] [id number] [address] [place] [address], [place] [address] Jun, [facility] [address] [id number] [address] [place] [address], [place] [address] Jun, [facility] [address] [id number] [address] [place] [address], [place] [address] Jun, [facility] [address] [id number] [address] [place] [address], [place] [address] May, [facility] [address] [id number] [address] [place] [address], [place] [address] May, [facility] [address] [id number] [address] [place] [address], [place] [address] May, [facility] [address] [id number] [address] [place] [address], [place] [address] May, [facility] [address] [id number] [address] [place] [address], [place] [address] May, [facility] [address] [id number] [address] [place] [address], [place] [address] May, [facility] [address] [id number] [address] [place] [address], [place] [address] May, [facility] [address] [id number] [address] [place] [address], [place] [address] Apr, [facility] [address] [id number] [address] [place] [address], [place] [address] Apr, [facility] [address] [id number] [address] [place] [address], [place] [address] Apr, [facility] [address] [id number] [address] [place] [address], [place] [address] Apr, [facility] [address] [id number] [address] [place] [address], [place] [address] Apr, [facility] [address] [id number] [address] [place] [address], [place] [address] Apr, [facility] [address] [id number] [address] [place] [address], [place] [address] Mar, [facility] [address] [id number] [address] [place] [address], [place] [address] Mar, [facility] [address] [id number] [address] [place] [address], [place] [address] Mar, [facility] [address] [id number] [address] [place] [address], [place] [address] Mar, [facility] [address] [id number] [address] [place] [address], [place] [address] Mar, [facility] [address] [id number] [address] [place] [address], [place] [address] Mar, [facility] [address] [id number] [address] [place] [address], [place] [address] 16 Mar, 2013 [facility] [address] [id number] [address] [place] [address], [place] [address] Mar, [facility] [address] [id number] [address] [place] [address], [place] [address] Mar, [facility] [address] [id number] [address] [place] [address], [place] [address] Mar, [facility] [address] [id number] [address] [place] [address], [place] [address] Feb, [facility] [address] [id number] [address] [place] [address], [place] [address] Feb, [facility] [address] [id number] [address] [place] [address], [place] [address] Feb, [facility] [address] [id number] [address] [place] [address], [place] [address] Feb, [facility] [address] [id number] [address] [place] [address], [place] [address] Feb, [facility] [address] [id number] [address] [place] [address] 14 Feb, 2013 [facility] [address] [id number] [address] [place] [address] Feb, [facility] [address] [id number] [address] [place] [address], [place] [address] Feb, [facility] [address] [id number] [address] [place] [address], [place] [address] 08 Feb, 2013 [facility] [address] [id number] [address] [place] [address], [place] [address] Feb, [facility] [address] [id number] [address] [place] [address], [place] [address] Jan, [facility] [address] [id number] [address] [place] [address], [place] [address] Jan, [facility] [address] [id number] [address] [place] [address], [place] [address] Jan, [facility] [address] [id number] [address] [place] [address], [place] [address] Jan, [facility] [address] [id number] [address] [place] [address], [place] [address] Jan, [facility] [address] [id number] [address] [place] [address], [place] [address] Jan, [facility] [address] [id number] [address] [place] [address], [place] [address] Jan, [facility] [address] [id number] [address] [place] [address], [place] [address] Jan, [facility] [address] [id number] [address] [place] [address], [place] [address] Jan, [facility] [address] [id number] [address] [place] [address], [place] [address] 25 Dec, 2012 [facility] [address] [id number] [address] [place] [address], [place] [address] 23 Dec, 2012 [facility] [address] [id number] [address] [place] [address], [place] [address] 21 Dec, 2012 [facility] [address] [id number] [address] [place] [address], [place] [address] 13 Dec, 2012 [facility] [address] [id number] [address] [place] [address], [place] [address] Nov, [facility] [address] [id number] [address] [place] [address], [place] [address] Nov, [facility] [address] [id number] [address] [place] [address], [place] [address] Nov, [facility] [address] [id number] [address] [place] [address], [place] [address] Nov, [facility] [address] [id number] [address] [place] [address], [place] [address] Nov, [facility] [address] [id number] [address] [place] [address], [place] [address] Nov, [facility] [address] [id number] [address] [place] [address], [place] [address] Oct, [facility] [address] [id number] [address] [place] [address], [place] [address] Oct, [facility] [address] [id number] [address] [place] [address], [place] [address] Oct, [facility] [address] [id number] [address] [place] [address], [place] [address] Oct, [facility] [address] [id number] [address] [place] [address], [place] [address] Sep, [facility] [address] [id number] [address] [place] [address], [place] [address] Sep, [facility] [address] [id number] [address] [place] [address], [place] [address] Sep, [facility] [address] [id number] [address] [place] [address], [place] [address] Sep, [facility] [address] [id number] [address] [place] [address], [place] [address] Sep, [facility] [address] [id number] [address] [place] [address], [place] [address] August, [facility] [address] [id number] [address] [place] [address], [place] [address] August, [facility] [address] [id number] [address] [place] [address], [place] [address] Jul, [facility] [address] [id number] [address] [place] [address], [place] [address] 19 Jul, 2012 [facility] [address] [id number] [address] [place] [address], [place] [address] 15 Jul, 2012 [facility] [address] [id number] [address] [place] [address], [place] [address] 09 Jul, 2012 [facility] [address] [id number] [address] [place] [address], [place] [address] 08 Jul, 2012 [facility] [address] [id number] [address] [place] [address], [place] [address] 26 Jun, 2012 [facility] [address] [id number] [address] [place] [address], [place] [address] Jun, [facility] [address] [id number] [address] [place] [address], [place] [address] Jun, [facility] [address] [id number] [address] [place] [address], [place] [address] Jun, [facility] [address] [id number] [address] [place] [address], [place] [address] Jun, [facility] [address] [id number] [address] [place] [address], [place] [address] 28 May, 2012 [facility] [address] [id number] [address] [place] [address], [place] [address] 27 May, 2012 [facility] [address] [id number] [address] [place] [address], [place] [address] 25 May, 2012 [facility] [address] [id number] [address] [place] [address], [place] [address] 21 May, 2012 [facility] [address] [id number] [address] [place] [address], [place] [address] 20 May, 2012 [facility] [address] [id number] [address] [place] [address], [place] [address] 14 May, 2012 [facility] [address] [id number] [address] [place] [address], [place] [address] 13 May, 2012 [facility] [address] [id number] [address] [place] [address], [place] [address] 08 May, 2012 [facility] [address] [id number] [address] [place] [address], [place] [address] May, [facility] [address] [id number] [address] [place] [address], [place] [address] Apr, [facility] [address] [id number] [address] [place] [address], [place] [address] Apr, [facility] [address] [id number] [address] [place] [address], [place] [address] Apr, [facility] [address] [id number] [address] [place] [address], [place] [address] Apr, [facility] [address] [id number] [address] [place] [address], [place] [address] Apr, [facility] [address] [id number] [address] [place] [address], [place] [address] Mar, [facility] [address] [id number] [address] [place] [address], [place] [address] Mar, [facility] [address] [id number] [address] [place] [address], [place] [address] Mar, [facility] [address] [id number] [address] [place] [address], [place] [address] Mar, [facility] [address] [id number] [address] [place] [address], [place] [address] Mar, [facility] [address] [id number] [address] [place] [address], [place] [address] Mar, [facility] [address] [id number] [address] [place] [address], [place] [address] Mar, [facility] [address] [id number] [address] [place] [address], [place] [address] Mar, [facility] [address] [id number] [address] [place] [address], [place] [address] 07 Mar, 2012 [facility] [address] [id number] [address] [place] [address], [place] [address] 07 Mar, 2012 [facility] [address] [id number] [address] [place] [address], [place] [address] 30 Feb, 2012 [facility] [address] [id number] [address] [place] [address], [place] [address] 30 Feb, 2012 [facility] [address] [id number] [address] [place] [address], [place] [address] Feb, [facility] [address] [id number] [address] [place] [address], [place] [address] 29 Feb, 2012 [facility] [address] [id number] [address] [place] [address], [place] [address] Feb, [facility] [address] [id number] [address] [place] [address], [place] [address] Feb, [facility] [address] [id number] [address] [place] [address], [place] [address] Feb, [facility] [address] [id number] [address] [place] [address], [place] [address] Feb, [facility] [address] [id number] [address] [place] [address], [place] [address] 16 Feb, 2012 [facility] [address] [id number] [address] [place] [address], [place] [address] 16 Feb, 2012 [facility] [address] [id number] [address] [place] [address], [place] [address] 13 Feb, 2012 [facility] [address] [id number] [address] [place] [address], [place] [address] 13 Feb, 2012 [facility] [address] [id number] [address] [place] [address], [place] [address] 12 Feb, 2012 [facility] [address] [id number] [address] [place] [address], [place] [address] 09 Feb, 2012 [facility] [address] [id number] [address] [place] [address], [place] [address] Feb, [facility] [address] [id number] [address] [place] [address], [place] [address] Feb, [facility] [address] [id number] [address] [place] [address], [place] [address] Feb, [facility] [address] [id number] [address] [place] [address], [place] [address] Feb, [facility] [address] [id number] [address] [place] [address], [place] [address] Jan, [facility] [address] [id number] [address] [place] [address], [place] [address] Jan, [facility] [address] [id number] [address] [place] [address], [place] [address] Jan, [facility] [address] [id number] [address] [place] [address], [place] [address] Jan, [facility] [address] [id number] [address] [place] [address], [place] [address] Jan, [facility] [address] [id number] [address] [place] [address], [place] [address] Jan, [facility] [address] [id number] [address] [place] [address], [place] [address] Jan, [facility] [address] [id number] [address] [place] [address] Jan, [facility] [address] [id number] [address] [place] [address], [place] [address] Jan, [facility] [address] [id number] [address] [place] [address], [place] [address] Jan, [facility] [address] [id number] [address] [place] [address] 24 Dec, 2011 [facility] [address] [id number] [address] [place] [address] Dec, [facility] [address] [id number] [address] [place] [address], [place] [address] Dec, [facility] [address] [id number] [address] [place] [address], [place] [address] Dec, [facility] [address] [id number] [address] [place] [address], [place] [address] Nov, [facility] [address] [id number] [address] [place] [address], [place] [address] Nov, [facility] [address] [id number] [address] [place] [address], [place] [address] Nov, [facility] [address] [id number] [address] [place] [address], [place] [address] Nov, [facility] [address] [id number] [address] [place] [address], [place] [address] Nov, [facility] [address] [id number] [address] [place] [address], [place] [address] Nov, [facility] [address] [id number] [address] [place] [address], [place] [address] Oct, [facility] [address] [id number] [address] [place] [address], [place] [address] Oct, [facility] [address] [id number] [address] [place] [address], [place] [address] Oct, [facility] [address] [id number] [address] [place] [address], [place] [address] Oct, [facility] [address] [id number] [address] [place] [address], [place] [address] Oct, [facility] [address] [id number] [address] [place] [address], [place] [address] Sep, [facility] [address] [id number] [address] [place] [address], [place] [address] Sep, [facility] [address] [id number] [address] [place] [address], [place] [address] Sep, [facility] [address] [id number] [address] [place] [address], [place] [address] Sep, [facility] [address] [id number] [address] [place] [address], [place] [address] Sep, [facility] [address] [id number] [address] [place] [address], [place] [address] August, [facility] [address] [id number] [address] [place] [address], [place] [address] August, [facility] [address] [id number] [address] [place] [address], [place] [address] August, [facility] [address] [id number] [address] [place] [address], [place] [address] August, [facility] [address] [id number] [address] [place] [address], [place] [address] Jul, [facility] [address] [id number] [address] [place] [address], [place] [address] 24 Jul, 2011 [facility] [address] [id number] [address] [place] [address], [place] [address] Jul, [facility] [address] [id number] [address] [place] [address], [place] [address] Jul, [facility] [address] [id number] [address] [place] [address], [place] [address] 18 Jul, 2011 [facility] [address] [id number] [address] [place] [address], [place] [address] 12 Jul, 2011 [facility] [address] [id number] [address] [place] [address], [place] [address] 11 Jul, 2011 [facility] [address] [id number] [address] [place] [address], [place] [address] 10 Jul, 2011 [facility] [address] [id number] [address] [place] [address], [place] [address] 09 Jul, 2011 [facility] [address] [id number] [address] [place] [address], [place] [address] 07 Jul, 2011 [facility] [address] [id number] [address] [place] [address], [place] [address] 05 Jul, 2011 [facility] [address] [id number] [address] [place] [address], [place] [address] Jul, [facility] [address] [id number] [address] [place] [address], [place] [address] Jul, [facility] [address] [id number] [address] [place] [address], [place] [address] Jul, [facility] [address] [id number] [address] [place] [address], [place] [address] 28 Jun, 2011 [facility] [address] [id number] [address] [place] [address], [place] [address] Jun, [facility] [address] [id number] [address] [place] [address], [place] [address] Jun, [facility] [address] [id number] [address] [place] [address], [place] [address] Jun, [facility] [address] [id number] [address] [place] [address], [place] [address] May, [facility] [address] [id number] [address] [place] [address], [place] [address] May, [facility] [address] [id number] [address] [place] [address], [place] [address] May, [facility] [address] [id number] [address] [place] [address], [place] [address] Apr, [facility] [address] [id number] [address] [place] [address], [place] [address] 18 Apr, 2011 [facility] [address] [id number] [address] [place] [address], [place] [address] 13 Apr, 2011 [facility] [address] [id number] [address] [place] [address], [place] [address] Apr, [facility] [address] [id number] [address] [place] [address], [place] [address] Apr, [facility] [address] [id number] [address] [place] [address], [place] [address] Mar, [facility] [address] [id number] [address] [place] [address], [place] [address] Mar, [facility] [address] [id number] [address] [place] [address], [place] [address] Mar, [facility] [address] [id number] [address] [place] [address], [place] [address] Mar, [facility] [address] [id number] [address] [place] [address], [place] [address] Mar, [facility] [address] [id number] [address] [place] [address], [place] [address] Mar, [facility] [address] [id number] [address] [place] [address], [place] [address] Mar, [facility] [address] [id number] [address] [place] [address], [place] [address] 29 Feb, 2011 [facility] [address] [id number] [address] [place] [address], [place] [address] Feb, [facility] [address] [id number] [address] [place] [address], [place] [address] Feb, [facility] [address] [id number] [address] [place] [address], [place] [address] Feb, [facility] [address] [id number] [address] [place] [address], [place] [address] 16 Feb, 2011 [facility] [address] [id number] [address] [place] [address], [place] [address] 14 Feb, 2011 [facility] [address] [id number] [address] [place] [address], [place] [address] 10 Feb, 2011 [facility] [address] [id number] [address] [place] [address], [place] [address] 31 Jan, 2011 [facility] [address] [id number] [address] [place] [address], [place] [address] 31 Jan, 2011 [facility] [address] [id number] [address] [place] [address], [place] [address] 31 Jan, 2011 [facility] [address] [id number] [address] [place] [address], [place] [address] 18 Jan, 2011 [facility] [address] [id number] [address] [place] [address], [place] [address] 17 Jan, 2011 [facility] [address] [id number] [address] [place] [address], [place] [address] 17 Jan, 2011 [facility] [address] [id number] [address] [place] [address], [place] [address] 17 Jun, 2010 [facility] [address] [id number] [address] [place] [address], [place] [address] 30 Mar, 2010 [facility] [address] [id number] [address] [place] [address], [place] [address] 20 Mar, 2010 [facility] [address] [id number] [address] [place] [address], [place] [address] 14 Mar, 2010 [facility] [address] [id number] [address] [place] [address], [place] [address] 14 Mar, 2010 [facility] [address] [id number] [address] [place] [address], [place] [address] 13 Mar, 2010 [facility] [address] [id number] [address] [place] [address], [place] [address] 07 Mar, 2010 [facility] [address] [id number] [address] [place] [address], [place] [address] 02 Mar, 2010 [facility] [address] [id number] [address] [place] [address], [place] [id number] 01 Mar, 2010 [facility] [address] [id number] [address] [place] [address], [place] [address] 30 Feb, 2010 [facility] [address] [id number] [address] [place] [address], [place] [address] 29 Feb, 2010 [facility] [address] [id number] [address] [place] [address], [place] [address] Feb, [facility] [address] [id number] [address] [place] [address], [place] [address] 17 Feb, 2010 [facility] [address] [id number] [address] [place] [address], [place] [address] 16 Feb, 2010 [facility] [address] [id number] [address] [place] [address], [place] [address] Feb, [facility] [address] [id number] [address] [place] [address], [place] [address] Feb, [facility] [address] [id number] [address] [place] [address], [place] [address] Feb, [facility] [address] [id number] [address] [place] [address], [place] [address] Jan, [facility] [address] [id number] [address] [place] [address], [place] [address] Jan, [facility] [address] [id number] [address] [place] [phone] Jan, [facility] [address] [id number] [address] [place] [phone] Jan, [facility] [address] [id number] [address] [place] [phone] Mar, [facility] [address] [id number] [address] [place] [address], [place] [address] Mar, [facility] [address] [id number] [address] [place] [address] Mar, [facility] [address] [id number] [address] [place] [address] Mar, [facility] [address] [id number] [address] [place] [id number] 14 Mar, 2009 [facility] [address] [facility] [id number] [address] [place] [id number] 10 Mar, 2009 [facility] [address] [facility] [id number] [address] [place] [phone] Feb, [facility] [address] [facility] [id number] [address] [place] [phone] Feb, [facility] [address] [facility] [id number] [address] [place] [phone] Jan, [facility] [address] [facility] [id number] [address] [place] [id number] Sep, [facility] [address] [facility] [id number] [address] [place] [id number] May, IMMUNIZATIONS No Known Immunizations SOCIAL HISTORY [...] Surgical History Left ear surgery Hospitalization History [facility] in [place]- Spontane ous Pneumothorax Hospitalization History [facility]- Colon resection Hospitalization History [facility] - diarrhea/ couldnt urin ate nov 2017 Hospitalization History pain /hip to foot right side 10/16/19 19
--- OUTSIDE RECORDS SUMMARY | 2019-08-28 08:49 | XMS REPORT ---
Author Author Dixon Lundberg Doctor Organization [facility] Address Unknown Phone Unavailable Care Team Providers Care Portfolio Administrator Name Role Phone Migration, Doctor Unavailable Unavailable PROBLEMS Type Condition ICD9-CM Code WYK19-TU Code Onset Dates Condition S tatus SNOMED Code Problem Insomnia G47.00 Active 460672363 Problem Anxiety F41.9 Active 26643696 Problem HTN (hypertension) I10 Active 3 4956344 Problem Chronic pain G89.29 Active 0237238 1 Problem Constipation K59.00 Active 6838810 8 Problem Thoracic back pain, unspecif ied back pain laterality, unspecified chronicity M54.6 Active 267998195 Problem Hyperlipidemia E78.5 Active 14441 004 Problem Vitamin D deficiency E55.9 Active 14248911 Problem Chronic kidney disease, stage III (moderate) N18.3 Active 772082556 Problem Vision loss H54.7 Active 61572403 1 Problem Age-related cataract of both eyes, unspecified age-related cataract type H25.9 Active 42642650 Problem Primary insomnia F51.01 Active 397 2004 Problem Psychophysiologic insomnia F51.04 Act saúl 724063745 Problem Environmental allergies Z91.09 Active 444058992 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 40182887 Problem Schizophrenia, unspecified type F20.9 Active 75714234 Problem Psychophysiological insomnia F51.04 A ctive 487670812 Problem Psychophysiological insomnia F51.04 A ctive [id number] ALLERGIES No Information ENCOUNTERS Encounter Location Date Diagnosis [facility], [place] [address] [facility] [id number] [address] [place] [phone] Jul, [facility], [place] [address] [facility] [id number] [address] [place] [phone] Jul, Thoracic back pain, unspecif ied back pain laterality, unspecified chronicity M54.6 [facility], [place] [address] [facility] [id number] [address] [place] [phone] Jul, Anxiety F41.9 and Thoracic b ack pain, unspecified back pain laterality, unspecified chronicity M54.6 [facility], [place] [address] [id number] [address] [place] [phone] 23 Jun, 2019 [facility] [place] [address] [id number] [address] [place] [phone] 10 Jun, 2019 Thoracic back pain, unspecif ied back pain laterality, unspecified chronicity M54.6 [facility] [place] [address] [id number] [address] [place] [phone] 09 Jun, 2019 [facility] [place] [address] [id number] [address] [place] [phone] 04 Jun, 2019 Anxiety F41.9 and Thoracic b ack pain, unspecified back pain laterality, unspecified chronicity M54.6 [place] [id number] [id number] [address] [place] [id number] Jun, [facility], [place] [address] [id number] [address] [place] [phone] May, [facility], [place] [address] [id number] [address] [place] [phone] May, Psychophysiologic insomnia F 51.04 [facility], [place] [address] [id number] [address] [place] [phone] 13 May, 2019 Other constipation K59.09 [facility], [place] [address] [id number] [address] [place] [phone] 11 May, 2019 Thoracic back pain, unspecif ied back pain laterality, unspecified chronicity M54.6 [facility], [place] [address] [id number] [address] [place] [id number] 06 May, 2019 Anxiety F41.9 and Thoracic b ack pain, unspecified back pain laterality, unspecified chronicity M54.6 [facility], [place] [address] [id number] [address] [place] [phone] 06 May, 2019 [facility] [place] [address] [id number] [address] [place] [phone] Apr, [facility], [place] [address] [id number] [address] [place] [phone] Apr, [place] [address] [facility] [id number] [address] [place] [id number] Apr, Psychophysiological insomnia F51.04 [place] [address] [place] [id number] [address] [place] [phone] Apr, Thoracic back pain, unspecif ied back pain laterality, unspecified chronicity M54.6 [place] [address] [facility] [id number] [address] [place] [phone] Apr, Thoracic back pain, unspecif ied back pain laterality, unspecified chronicity M54.6 [place] [address] [place] [id number] [address] [place] [phone] Apr, Anxiety F41.9 [place] [address] [place] [id number] [place] [phone] Apr, Psychophysiological insomnia F51.04 [place] [address] [phone] Mar, Encounter for Medicare annua l wellness [...] both eyes, unspecified age-related cataract type H25.9 [place] [address] [place] [id number] [address] [place] [id number] Mar, Thoracic back pain, unspecif ied back pain laterality, unspecified chronicity M54.6 [place] [address] [place] [id number] [address] [place] [phone] 16 Mar, 2019 Psychophysiological insomnia F51.04 [facility] [place] [address] [id number] [address] [place] [phone] Mar, Thoracic back pain, unspecif ied back pain laterality, unspecified chronicity M54.6 and Anxiety F41.9 [facility], [place] [address] [id number] [address] [place] [phone] Mar, Psychophysiological insomnia F51.04 [facility], [place] [address] [id number] [address] [place] [phone] Mar, [facility], [place] [address] [id number] [address] [place] [phone] Mar, Psychophysiological insomnia F51.04 [facility], [place] [address] [id number] [address] [place] [phone] Mar, [facility], [place] [address] [id number] [address] [place] [phone] Feb, [facility], [place] [address] [id number] [address] [place] [phone] Feb, Thoracic back pain, unspecif ied back pain laterality, unspecified chronicity M54.6 [facility] [place] [address] [id number] [address] [place] [phone] Feb, Anxiety F41.9 and Thoracic b ack pain, unspecified back pain laterality, unspecified chronicity M54.6 [facility] [place] [address] [id number] [address] [place] [phone] Feb, Insomnia G47.00 ; HTN (hyper tension) I10 and Constipation K59.00 [facility] [place] [address] [id number] [address] [place] [phone] Feb, [facility] [place] [address] [id number] [address] [place] [phone] Jan, Thoracic back pain, unspecif ied back pain laterality, unspecified chronicity M54.6 [facility] [address] [id number] [address] [place] [phone] Jan, Anxiety F41.9 [facility], [place] [address] [id number] [address] [place] [phone] Jan, Anxiety F41.9 [facility], [place] [address] [id number] [address] [place] [phone] Jan, Anxiety F41.9 and Thoracic b ack pain, unspecified back pain laterality, unspecified chronicity M54.6 [facility] [place] [address] [id number] [address] [place] [phone] Jan, [facility] [place] [address] [id number] [address] [place] [phone] Jan, [facility], [place] [address] [id number] [address] [place] [phone] Dec, Thoracic back pain, unspecif ied back pain laterality, unspecified chronicity M54.6 [facility] [place] [address] [id number] [address] [place] [phone] Dec, Thoracic back pain, unspecif ied back pain laterality, unspecified chronicity M54.6 [facility] [place] [address] [id number] [address] [place] [phone] Nov, Thoracic back pain, unspecif ied back pain laterality, unspecified chronicity M54.6 [facility], [place] [address] [id number] [address] [place] [phone] Nov, Anxiety F41.9 and Thoracic b ack pain, unspecified back pain laterality, unspecified chronicity M54.6 [facility], [place] [address] [id number] [address] [place] [id number] Nov, [facility], [place] [address] [id number] [address] [place] [phone] Nov, [facility] [place] [address] [id number] [address] [place] [phone] Nov, [facility] [place] [address] [id number] [address] [place] [id number] Oct, Thoracic back pain, unspecif ied back pain laterality, unspecified chronicity M54.6 [facility] [place] [address] [id number] [address] [place] [id number] Oct, Anxiety F41.9 and Thoracic b ack pain, unspecified back pain laterality, unspecified chronicity M54.6 [facility] [place] [address] [id number] [address] [place] [id number] Oct, Schizophrenia, unspecified t ype F20.9 and Acute kidney injury N17.9 [facility] [place] [address] [id number] [address] [place] [id number] Oct, [facility], [place] [address] [id number] [address] [place] [phone] Oct, [facility] [place] [address] [id number] [address] [place] [id number] Oct, Thoracic back pain, unspecif ied back pain laterality, unspecified chronicity M54.6 [facility] [place] [address] [id number] [address] [place] [phone] Oct, [facility] [place] [address] [id number] [address] [place] [phone] Oct, [facility] [place] [address] [id number] [address] [place] [phone] Sep, Anxiety F41.9 [facility], [place] [address] [id number] [address] [place] [phone] Sep, [facility] [place] [address] [id number] [address] [place] [phone] Sep, Thoracic back pain, unspecif ied back pain laterality, unspecified chronicity M54.6 [facility] [place] [address] [id number] [address] [place] [phone] Sep, [facility] [place] [address] [facility] [id number] [address] [place] [phone] Sep, [facility] [place] [address] [facility] [id number] [address] [place] [phone] Sep, [facility] [place] [address] [facility] [id number] [address] [place] [phone] Sep, [facility] [place] [address] [facility] [id number] [address] [place] [phone] Sep, [facility] [place] [address] [facility] [id number] [address] [place] [id number] Sep, [facility] [place] [address] [facility] [id number] [address] [place] [phone] Sep, Chronic pain G89.29 ; Chroni c kidney disease, stage III (moderate) N18.3 ; Hyperlipidemia E78.5 and Insomnia G47.00 [facility], [place] [address] [facility] [id number] [address] [place] [phone] Sep, Thoracic back pain, unspecif ied back pain laterality, unspecified chronicity M54.6 [facility] [place] [address] [facility] [id number] [address] [place] [phone] August, Anxiety F41.9 [facility], [place] [address] [facility] [id number] [address] [place] [phone] August, Thoracic back pain, unspecif ied back pain laterality, unspecified chronicity M54.6 and Anxiety F41.9 [facility], [place] [address] [facility] [id number] [address] [place] [address] August, 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 [facility], [place] [address] [facility] [id number] [address] [place] [phone] August, 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 [facility] [place] [address] [facility] [id number] [address] [place] [address] August, [facility] [place] [address] [facility] [id number] [address] [place] [phone] August, [facility] [place] [address] [id number] [address] [place] [phone] August, Thoracic back pain, unspecif ied back pain laterality, unspecified chronicity M54.6 [facility] [place] [address] [id number] [address] [place] [phone] August, [facility] [place] [address] [id number] [address] [place] [phone] August, Anxiety F41.9 and Thoracic b ack pain, unspecified back pain laterality, unspecified chronicity M54.6 [facility], [place] [address] [id number] [address] [place] [phone] Jul, [facility], [place] [address] [id number] [address] [place] [phone] Jul, Thoracic back pain, unspecif ied back pain laterality, unspecified chronicity M54.6 [facility] [place] [address] [id number] [address] [place] [id number] Jun, Anxiety F41.9 and Thoracic b ack pain, unspecified back pain laterality, unspecified chronicity M54.6 [facility] [place] [address] [id number] [address] [place] [id number] Jun, Anxiety F41.9 and Thoracic b ack pain, unspecified back pain laterality, unspecified chronicity M54.6 [facility] [place] [address] [id number] [address] [place] [phone] Jun, Thoracic back pain, unspecif ied back pain laterality, unspecified chronicity M54.6 [facility] [place] [address] [id number] [address] [place] [phone] Jun, Anxiety F41.9 and Thoracic b ack pain, unspecified back pain laterality, unspecified chronicity M54.6 [facility] [place] [address] [id number] [address] [place] [phone] May, [facility] [place] [address] [id number] [address] [place] [phone] 11 May, 2018 [facility] [place] [address] [id number] [address] [place] [id number] May, [facility] [place] [address] [id number] [address] [place] [id number] 06 May, 2018 Anxiety F41.9 and Encounter for medication monitoring Z51.81 [facility] [place] [address] [id number] [address] [place] [phone] 05 May, 2018 Anxiety F41.9 and Thoracic b ack pain, unspecified back pain laterality, unspecified chronicity M54.6 [place] [address] [id number] [address] [place] [address] Apr, Hyperlipidemia 272.4 [facility] [place] [address] [id number] [address] [place] [address] Apr, Chronic pain G89.29 ; Anxiet y F41.9 ; Cervical radiculopathy M54.12 and Vision loss H54.7 [facility] [place] [address] [id number] [address] [place] [phone] Apr, [facility] [place] [address] [id number] [address] [place] [phone] Apr, Anxiety F41.9 and Thoracic b ack pain, unspecified back pain laterality, unspecified chronicity M54.6 [facility] [place] [address] [id number] [address] [place] [phone] Mar, [facility] [place] [address] [id number] [address] [place] [phone] Mar, Anxiety F41.9 and Thoracic b ack pain, unspecified back pain laterality, unspecified chronicity M54.6 [facility] [place] [address] [id number] [address] [place] [phone] Feb, Anxiety F41.9 and Thoracic b ack pain, unspecified back pain laterality, unspecified chronicity M54.6 [facility] [place] [address] [id number] [address] [place] [id number] 07 Feb, 2018 Thoracic back pain, unspecif ied back pain laterality, unspecified chronicity M54.6 [facility] [place] [address] [id number] [address] [place] [id number] 29 Jan, 2018 [facility] [place] [address] [id number] [address] [place] [phone] Jan, Anxiety F41.9 and Thoracic b ack pain, unspecified back pain laterality, unspecified chronicity M54.6 [facility] [place] [address] [id number] [address] [place] [id number] 19 Dec, 2017 Diarrhea of presumed infecti ous origin R19.7 [facility] [place] [address] [id number] [address] [place] [id number] 19 Dec, 2017 Diarrhea of presumed infecti ous origin R19.7 [facility] [place] [address] [id number] [address] [place] [id number] 18 Dec, 2017 Thoracic back pain, unspecif ied back pain laterality, unspecified chronicity M54.6 [facility] [place] [address] [id number] [address] [place] [id number] 17 Dec, 2017 [facility] [place] [address] [id number] [address] [place] [id number] 17 Dec, 2017 Anxiety F41.9 and Thoracic b ack pain, unspecified back pain laterality, unspecified chronicity M54.6 [facility] [place] [address] [id number] [address] [place] [phone] 13 Dec, 2017 Diarrhea of presumed infecti ous origin R19.7 [facility] [place] [address] [id number] [address] [place] [id number] 13 Dec, 2017 [facility] [place] [address] [id number] [address] [place] [phone] 12 Dec, 2017 Anxiety F41.9 and Thoracic b ack pain, unspecified back pain laterality, unspecified chronicity M54.6 [place] [address] [facility] [id number] [address] [place] [phone] Dec, Anxiety F41.9 and Thoracic b ack pain, unspecified back pain laterality, unspecified chronicity M54.6 [facility] [employer] [address] [place] [id number] Dec, Diarrhea of presumed infectious origin R 19.7 ; Anxiety F41.9 ; Thoracic back pain, unspecified back pain laterality, unspecified chronicity M54.6 and HTN (hypertension) I10 [place] [address] [facility] [id number] [address] [place] [id number] Dec, Anxiety F41.9 Via [facility] [employer] [address] [place] [id number] Dec, Anxiety F41.9 ; Diarrhea of presumed inf ectious origin R19.7 ; Generalized abdominal pain R10.84 and Localized edema R60.0 [place] [address] [place] [id number] [address] [place] [phone] Nov, [facility] [address] [place] [id number] Nov, Anxiety F41.9 ; Urinary retention R33.9 ; Diarrhea of presumed infectious origin R19.7 ; Weakness R53.1 ; Acute kidney failure, unspecified N17.9 ; Chronic kidney disease, stage III (moderate) N18.3 and Thoracic back pain, unspecified back pain laterality, unspecified chronicity M54.6 [place] [address] [place] [id number] [address] [place] [id number] Oct, Thoracic back pain, unspecif ied back pain laterality, unspecified chronicity M54.6 and Anxiety F41.9 [place] [address] [facility] [id number] [address] [place] [phone] Sep, Thoracic back pain, unspecif ied back pain laterality, unspecified chronicity M54.6 and Anxiety F41.9 [place] [address] [address] [place] [id number] [address] [place] [id number] Sep, Thoracic back pain, unspecif ied back pain laterality, unspecified chronicity M54.6 ; Anxiety F41.9 and Encounter for medication monitoring Z51.81 [facility] [place] [address] [id number] [address] [place] [phone] August, [facility] [place] [address] [id number] [address] [place] [phone] August, Thoracic back pain, unspecif ied back pain laterality, unspecified chronicity M54.6 and Anxiety F41.9 [facility] [place] [address] [id number] [address] [place] [phone] August, Hyperlipidemia E78.5 and HTN (hypertension) I10 [place] [address] [address] [facility] [id number] [address] [place] [phone] August, [place] [address] [address] [facility] [id number] [address] [place] [phone] August, Medicare welcome exam Z00.00 ; Chronic kidney failure N18.9 ; Anxiety F41.9 ; Chronic pain G89.29 ; Insomnia G47.00 ; Hyperlipidemia E78.5 ; HTN (hypertension) I10 and Thoracic back pain, unspecified back pain laterality, unspecified chronicity M54.6 [facility] [place] [address] [id number] [address] [place] [phone] Jul, [facility] [place] [address] [facility] [id number] [address] [place] [phone] Jul, [facility] [place] [address] [id number] [address] [place] [phone] Jul, [facility] [place] [address] [id number] [address] [place] [phone] Jul, Anxiety F41.9 [facility] [place] [address] [id number] [address] [place] [address] Jul, Thoracic back pain, unspecif ied back pain laterality, unspecified chronicity M54.6 and Anxiety F41.9 [facility] [place] [address] [id number] [address] [place] [address] Jun, Thoracic back pain, unspecif ied back pain laterality, unspecified chronicity M54.6 and Anxiety F41.9 [facility] [place] [address] [id number] [address] [place] [phone] May, Thoracic back pain, unspecif ied back pain laterality, unspecified chronicity M54.6 and Anxiety F41.9 [place] [id number] [id number] [address] [place] [phone] Apr, Thoracic back pain, unspecif ied back pain laterality, unspecified chronicity M54.6 and Anxiety F41.9 [place] [address] [id number] [address] [place] [id number] Mar, [place] [address] [id number] [address] [place] [address] Mar, Thoracic back pain, unspecif ied back pain laterality, unspecified chronicity M54.6 and Anxiety F41.9 [place] [address] [id number] [address] [place] [address] Mar, Thoracic back pain, unspecif ied back pain laterality, unspecified chronicity M54.6 ; HTN (hypertension) I10 ; Hyperlipidemia E78.5 and Anxiety F41.9 [place] [address] [id number] [address] [place] [id number] Feb, Thoracic back pain, unspecif ied back pain laterality, unspecified chronicity M54.6 and Anxiety F41.9 [place] [address] [id number] [address] [place] [phone] Nov, [place] [address] [id number] [address] [place] [phone] Oct, [facility] [place] [address] [id number] [address] [place] [id number] Oct, Thoracic back pain, unspecif ied back pain laterality, unspecified chronicity M54.6 [facility] [place] [address] [facility] [id number] [address] [place] [address] Oct, HTN (hypertension) I10 ; Con stipation K59.00 ; Hyperlipidemia E78.5 ; Thoracic back pain, unspecified back pain laterality, unspecified chronicity M54.6 ; Chronic pain G89.29 ; Anxiety F41.9 ; Chronic kidney failure N18.9 ; Environmental allergies Z91.09 ; Vitamin D deficiency E55.9 and Primary insomnia F51.01 [facility] [place] [address] [facility] [id number] [address] [place] [address] Sep, Anxiety F41.9 [facility], [place] [address] [place] [id number] [place] [address] Sep, [facility] [place] [address] [place] [id number] [place] [address] August, Anxiety F41.9 [facility] [place] [address] [place] [id number] [address] [place] [phone] August, [facility] [place] [address] [facility] [id number] [address] [place] [address] Jul, Anxiety F41.9 [facility] [place] [address] [place] [id number] [address] [place] [phone] Jul, [facility] [place] [address] [place] [id number] [address] [place] [phone] Jun, Anxiety F41.9 [facility] [place] [address] [facility] [id number] [address] [place] [phone] Jun, [facility] [place] [address] [place] [id number] [address] [place] [phone] May, [facility] [place] [address] [facility] [id number] [address] [place] [phone] May, [facility] [place] [address] [place] [id number] [address] [place] [phone] May, [facility] [place] [address] [facility] [id number] [address] [place] [address] Apr, [facility] [place] [address] [place] [id number] [address] [place] [address] Apr, [facility] [place] [address] [place] [id number] [address] [place] [address] Apr, Anxiety F41.9 [facility], [place] [address] [place] [id number] [place] [address] Apr, Anxiety F41.9 [facility] [place] [address] [facility] [id number] [address] [place] [id number] Apr, [facility] [place] [address] [place] [id number] [address] [place] [id number] Mar, HTN (hypertension) I10 ; Phillip mor R25.1 ; Hypercholesterolemia E78.0 ; Constipation K59.00 ; Chronic pain G89.29 ; Hyperlipidemia E78.5 ; Insomnia G47.00 ; Anxiety F41.9 and Thoracic back pain, unspecified back pain laterality, unspecified chronicity M54.6 [facility], [place] [id number] [place] [address] Mar, Tremor R25.1 ; HTN (hyperten stas) I10 ; Hypercholesterolemia E78.0 ; Constipation K59.00 ; Chronic pain G89.29 ; Hyperlipidemia E78.5 ; Insomnia G47.00 ; Anxiety F41.9 and Thoracic back pain, unspecified back pain laterality, unspecified chronicity M54.6 [facility] [place] [address] [place] [id number] [address] [place] [phone] Mar, [facility] [place] [address] [place] [id number] [place] [address] Mar, [facility] [place] [address] [place] [id number] [address] [place] [id number] Feb, [facility] [place] [address] [place] [id number] [address] [place] [phone] Jan, [facility] [place] [address] [id number] [address] [place] [id number] Jan, [facility] [place] [address] [id number] [address] [place] [id number] 15 Dec, 2015 [facility] [place] [address] [id number] [address] [place] [phone] Nov, [facility] [place] [address] [id number] [address] [place] [phone] Nov, [facility], [place] [address] [id number] [address] [place] [phone] Oct, Anxiety F41.9 [facility], [place] [address] [facility] [id number] [address] [place] [phone] Oct, Chronic pain G89.29 [facility] [place] [address] [facility] [id number] [address] [place] [phone] Sep, [facility], [place] [address] [id number] [address] [place] [phone] Sep, [facility] [place] [address] [facility] [id number] [address] [place] [phone] Sep, [facility] [place] [address] [facility] [id number] [address] [place] [phone] Sep, [facility] [place] [address] [facility] [id number] [address] [place] [phone] Sep, Chronic pain syndrome G89.4 [facility], [place] [address] [facility] [id number] [address] [place] [id number] Sep, HTN (hypertension) I10 ; Chr onic pain G89.29 ; Hypercholesterolemia E78.0 ; Chronic kidney failure N18.9 ; Constipation, unspecified constipation type K59.00 ; Anxiety F41.9 and Thoracic back pain, unspecified back pain laterality, unspecified chronicity M54.6 [facility] [place] [address] [facility] [id number] [address] [place] [address] August, Chronic pain syndrome G89.4 [facility] [place] [address] [id number] [address] [place] [id number] August, Chronic pain syndrome G89.4 [facility] [place] [address] [id number] [address] [place] [phone] Jul, Anxiety disorder, unspecifie d F41.9 and Chronic pain syndrome G89.4 [facility] [place] [address] [id number] [address] [place] [id number] Jul, Insomnia, unspecified G47.00 and Chronic pain syndrome G89.4 [facility] [place] [address] [id number] [address] [place] [id number] Jul, Allergic rhinitis J30.9 [facility], [place] [address] [id number] [address] [place] [phone] Jul, Constipation, unspecified K5 9.00 [facility], [place] [address] [id number] [address] [place] [address] Jul, [facility] [place] [address] [id number] [address] [place] [phone] Jun, [facility] [place] [address] [id number] [address] [place] [phone] Jun, [facility] [place] [address] [id number] [address] [place] [id number] Jun, [facility] [place] [address] [id number] [address] [place] [phone] Jun, [facility] [place] [address] [id number] [address] [place] [id number] Jun, [facility] [place] [address] [id number] [address] [place] [id number] Jun, [facility] [place] [address] [facility] [id number] [address] [place] [id number] May, [facility], [place] [address] [id number] [address] [place] [phone] May, [facility] [place] [address] [facility] [id number] [address] [place] [address] May, Anxiety F41.9 ; Insomnia G47 .00 ; Hyperlipidemia E78.5 ; Chronic pain G89.29 ; HTN (hypertension) I10 ; Environmental allergies V15.09 and Constipation 564.00 [facility] [place] [address] [facility] [id number] [address] [place] [address] Apr, [facility] [place] [address] [facility] [id number] [address] [place] [phone] Apr, [facility], [place] [address] [place] [id number] [place] [address] Apr, [facility] [place] [address] [place] [id number] [place] [id number] Mar, [facility] [place] [address] [place] [id number] [place] [id number] Mar, [facility] [place] [address] [place] [id number] [address] [place] [phone] Mar, [facility] [place] [address] [place] [id number] [place] [id number] Feb, [facility] [place] [address] [place] [id number] [address] [place] [phone] Feb, [facility] [place] [address] [facility] [id number] [address] [place] [phone] Feb, [facility] [place] [address] [facility] [id number] [address] [place] [address] Jan, HTN (hypertension) I10 ; Con stipation K59.00 ; Chronic pain G89.29 ; Hyperlipidemia E78.5 ; Hypercholesterolemia E78.0 ; Insomnia G47.00 and Anxiety F41.9 [facility] [place] [address] [facility] [id number] [address] [place] [phone] Jan, [facility] [place] [address] [facility] [id number] [address] [place] [phone] Dec, [facility] [place] [address] [facility] [id number] [address] [place] [phone] Nov, [facility] [place] [address] [facility] [id number] [address] [place] [phone] Oct, Chronic kidney disease, unsp ecified 585.9 ; Chronic pain syndrome 338.4 ; Hyperlipidemia 272.4 and Essential hypertension 401.9 [facility] [place] [address] [facility] [id number] [address] [place] [phone] Oct, Chronic kidney disease 585.9 [facility] [place] [address] [facility] [id number] [address] [place] [phone] Oct, [facility] [place] [address] [facility] [id number] [address] [place] [id number] Oct, Chronic kidney disease, unsp ecified 585.9 ; Hypercalcemia 275.42 ; Hyperlipidemia 272.4 ; Essential hypertension 401.9 ; Chronic pain syndrome 338.4 ; Insomnia 780.52 ; Constipation 564.00 ; Environmental allergies V15.09 and Anxiety 300.00 [facility] [place] [address] [facility] [id number] [address] [place] [id number] Oct, Chronic kidney disease 585.9 [facility] [place] [address] [facility] [id number] [address] [place] [phone] Oct, [facility] [place] [address] [facility] [id number] [address] [place] [phone] Oct, Chronic kidney disease 585.9 and Hyperlipidemia 272.4 [facility] [place] [address] [facility] [id number] [address] [place] [phone] Oct, [facility] [place] [address] [place] [id number] [address] [place] [phone] Oct, [facility] [place] [address] [place] [id number] [address] [place] [phone] Sep, [facility] [address] [id number] [address] [place] [id number] 15 Sep, 2014 [facility] [address] [id number] [address] [place] [id number] 15 Sep, 2014 Chronic kidney disease 585.9 and Hyperlipidemia 272.4 [facility] [address] [id number] [address] [place] [address], [place] [address] 12 Sep, 2014 [facility] [address] [id number] [address] [place] [address], [place] [address] August, [facility] [address] [id number] [address] [place] [address], [place] [address] August, [facility] [address] [id number] [address] [place] [address], [place] [address] 14 Jul, 2014 [facility] [address] [id number] [address] [place] [address], [place] [address] Jul, [facility] [address] [id number] [address] [place] [address], [place] [address] Jun, [facility] [address] [id number] [address] [place] [address], [place] [address] Jun, [facility] [address] [id number] [address] [place] [phone] 16 Jun, 2014 [facility] [address] [id number] [address] [place] [id number] 16 Jun, 2014 [facility] [address] [id number] [address] [place] [phone] Jun, [facility] [address] [id number] [address] [place] [address], [place] [address] Jun, [facility] [address] [id number] [address] [place] [id number] Jun, [facility] [address] [id number] [address] [place] [phone] Jun, [facility] [address] [id number] [address] [place] [phone] May, [facility] [address] [id number] [address] [place] [address], [place] [address] May, [facility] [address] [id number] [address] [place] [address], [place] [address] May, [facility] [address] [id number] [address] [place] [address], [place] [address] May, [facility] [address] [id number] [address] [place] [address], [place] [address] Apr, [facility] [address] [id number] [address] [place] [address], [place] [address] Apr, [facility] [address] [id number] [address] [place] [address], [place] [address] Apr, [facility] [address] [id number] [address] [place] [address], [place] [address] Apr, [facility] [address] [id number] [address] [place] [address], [place] [address] Apr, [facility] [address] [id number] [address] [place] [address], [place] [address] Apr, [facility] [address] [id number] [address] [place] [address], [place] [address] Apr, [facility] [address] [id number] [address] [place] [address], [place] [address] Apr, [facility] [address] [id number] [address] [place] [phone] Apr, [facility] [address] [id number] [address] [place] [address], [place] [address] Apr, [facility] [address] [id number] [address] [place] [address], [place] [address] Apr, [facility] [address] [id number] [address] [place] [address], [place] [address] Mar, [facility] [address] [id number] [address] [place] [address], [place] [address] Mar, [facility] [address] [id number] [address] [place] [address], [place] [address] Feb, [facility] [address] [id number] [address] [place] [address], [place] [address] Feb, [facility] [address] [id number] [address] [place] [address], [place] [address] Feb, [facility] [address] [id number] [address] [place] [address], [place] [address] Feb, [facility] [address] [id number] [address] [place] [address], [place] [address] Feb, [facility] [address] [id number] [address] [place] [address], [place] [address] Feb, [facility] [address] [id number] [address] [place] [address], [place] [address] Feb, [facility] [address] [id number] [address] [place] [address], [place] [address] Feb, [facility] [address] [id number] [address] [place] [address], [place] [address] Feb, [facility] [address] [id number] [address] [place] [address], [place] [address] Feb, [facility] [address] [id number] [address] [place] [address], [place] [address] Jan, [facility] [address] [id number] [address] [place] [address], [place] [address] Jan, [facility] [address] [id number] [address] [place] [address], [place] [address] Jan, [facility] [address] [id number] [address] [place] [address], [place] [address] Jan, [facility] [address] [id number] [address] [place] [address], [place] [address] 24 Jan, 2014 [facility] [address] [id number] [address] [place] [address], [place] [address] 24 Jan, 2014 [facility] [address] [id number] [address] [place] [address], [place] [address] Jan, [facility] [address] [id number] [address] [place] [address], [place] [address] 17 Jan, 2014 [facility] [address] [id number] [address] [place] [address], [place] [address] 16 Jan, 2014 [facility] [address] [id number] [address] [place] [address], [place] [address] Jan, [facility] [address] [id number] [address] [place] [address], [place] [address] Jan, [facility] [address] [id number] [address] [place] [address], [place] [address] 26 Dec, 2013 [facility] [address] [id number] [address] [place] [address], [place] [address] 26 Dec, 2013 [facility] [address] [id number] [address] [place] [address], [place] [address] 19 Dec, 2013 [facility] [address] [id number] [address] [place] [address], [place] [address] 19 Dec, 2013 [facility] [address] [id number] [address] [place] [address], [place] [address] 18 Dec, 2013 [facility] [address] [id number] [address] [place] [address], [place] [address] 18 Dec, 2013 [facility] [address] [id number] [address] [place] [address], [place] [address] 03 Dec, 2013 [facility] [address] [id number] [address] [place] [address], [place] [address] 03 Dec, 2013 [facility] [address] [id number] [address] [place] [address], [place] [address] Nov, [facility] [address] [id number] [address] [place] [address], [place] [address] Nov, [facility] [address] [id number] [address] [place] [address], [place] [address] Nov, [facility] [address] [id number] [address] [place] [address], [place] [address] Nov, [facility] [address] [id number] [address] [place] [address], [place] [address] Nov, [facility] [address] [id number] [address] [place] [address], [place] [address] Nov, [facility] [address] [id number] [address] [place] [address], [place] [address] Nov, [facility] [address] [id number] [address] [place] [address], [place] [address] Nov, [facility] [address] [id number] [address] [place] [address], [place] [address] Oct, [facility] [address] [id number] [address] [place] [address], [place] [address] Oct, [facility] [address] [id number] [address] [place] [address], [place] [address] Oct, [facility] [address] [id number] [address] [place] [address], [place] [address] Oct, [facility] [address] [id number] [address] [place] [address], [place] [address] Sep, [facility] [address] [id number] [address] [place] [address], [place] [address] Sep, [facility] [address] [id number] [address] [place] [address], [place] [address] Sep, [facility] [address] [id number] [address] [place] [address], [place] [address] Sep, [facility] [address] [id number] [address] [place] [address], [place] [address] Sep, [facility] [address] [id number] [address] [place] [address], [place] [address] Sep, [facility] [address] [id number] [address] [place] [address], [place] [address] Sep, [facility] [address] [id number] [address] [place] [address], [place] [address] Sep, [facility] [address] [id number] [address] [place] [address], [place] [address] August, [facility] [address] [id number] [address] [place] [address], [place] [address] August, [facility] [address] [id number] [address] [place] [address], [place] [address] August, [facility] [address] [id number] [address] [place] [address], [place] [address] August, [facility] [address] [id number] [address] [place] [address], [place] [address] August, [facility] [address] [id number] [address] [place] [address], [place] [address] August, [facility] [address] [id number] [address] [place] [address], [place] [address] August, [facility] [address] [id number] [address] [place] [address], [place] [address] August, [facility] [address] [id number] [address] [place] [address], [place] [address] August, [facility] [address] [id number] [address] [place] [address], [place] [address] August, [facility] [address] [id number] [address] [place] [address], [place] [address] Jul, [facility] [address] [id number] [address] [place] [address], [place] [address] Jul, [facility] [address] [id number] [address] [place] [address], [place] [address] Jul, [facility] [address] [id number] [address] [place] [address], [place] [address] Jul, [facility] [address] [id number] [address] [place] [address], [place] [address] Jul, [facility] [address] [id number] [address] [place] [address], [place] [address] Jul, [facility] [address] [id number] [address] [place] [address], [place] [address] Jul, [facility] [address] [id number] [address] [place] [address], [place] [address] Jul, [facility] [address] [id number] [address] [place] [address], [place] [address] Jun, [facility] [address] [id number] [address] [place] [address], [place] [address] Jun, [facility] [address] [id number] [address] [place] [address], [place] [address] Jun, [facility] [address] [id number] [address] [place] [address], [place] [address] Jun, [facility] [address] [id number] [address] [place] [address], [place] [address] Jun, [facility] [address] [id number] [address] [place] [address], [place] [address] Jun, [facility] [address] [id number] [address] [place] [address], [place] [address] May, [facility] [address] [id number] [address] [place] [address], [place] [address] May, [facility] [address] [id number] [address] [place] [address], [place] [address] May, [facility] [address] [id number] [address] [place] [address], [place] [address] May, [facility] [address] [id number] [address] [place] [address], [place] [address] May, [facility] [address] [id number] [address] [place] [address], [place] [address] May, [facility] [address] [id number] [address] [place] [address], [place] [address] May, [facility] [address] [id number] [address] [place] [address], [place] [address] Apr, [facility] [address] [id number] [address] [place] [address], [place] [address] Apr, [facility] [address] [id number] [address] [place] [address], [place] [address] Apr, [facility] [address] [id number] [address] [place] [address], [place] [address] Apr, [facility] [address] [id number] [address] [place] [address], [place] [address] Apr, [facility] [address] [id number] [address] [place] [address], [place] [address] Apr, [facility] [address] [id number] [address] [place] [address], [place] [address] Mar, [facility] [address] [id number] [address] [place] [address], [place] [address] Mar, [facility] [address] [id number] [address] [place] [address], [place] [address] Mar, [facility] [address] [id number] [address] [place] [address], [place] [address] Mar, [facility] [address] [id number] [address] [place] [address], [place] [address] Mar, [facility] [address] [id number] [address] [place] [address], [place] [address] Mar, [facility] [address] [id number] [address] [place] [address] 16 Mar, 2013 [facility] [address] [id number] [address] [place] [address], [place] [address] 16 Mar, 2013 [facility] [address] [id number] [address] [place] [address] Mar, [facility] [address] [id number] [address] [place] [address] Mar, [facility] [address] [id number] [address] [place] [address] Feb, [facility] [address] [id number] [address] [place] [address], [place] [address] Feb, [facility] [address] [id number] [address] [place] [address], [place] [address] Feb, [facility] [address] [id number] [address] [place] [address] Feb, [facility] [address] [id number] [address] [place] [address], [place] [address] Feb, [facility] [address] [id number] [address] [place] [address] Feb, [facility] [address] [id number] [address] [place] [address], [place] [address] Feb, [facility] [address] [id number] [address] [place] [address] Feb, [facility] [address] [id number] [address] [place] [address] Feb, [facility] [address] [id number] [address] [place] [address] Feb, [facility] [address] [id number] [address] [place] [address] Jan, [facility] [address] [id number] [address] [place] [address] Jan, [facility] [address] [id number] [address] [place] [address], [place] [address] Jan, [facility] [address] [id number] [address] [place] [address], [place] [address] Jan, [facility] [address] [id number] [address] [place] [address], [place] [address] Jan, [facility] [address] [id number] [address] [place] [address], [place] [address] Jan, [facility] [address] [id number] [address] [place] [address], [place] [address] 17 Jan, 2013 [facility] [address] [id number] [address] [place] [address], [place] [address] Jan, [facility] [address] [id number] [address] [place] [address], [place] [address] Jan, [facility] [address] [id number] [address] [place] [address], [place] [address] 25 Dec, 2012 [facility] [address] [id number] [address] [place] [address], [place] [address] 23 Dec, 2012 [facility] [address] [id number] [address] [place] [address], [place] [address] 21 Dec, 2012 [facility] [address] [id number] [address] [place] [address], [place] [address] 13 Dec, 2012 [facility] [address] [id number] [address] [place] [address], [place] [address] Nov, [facility] [address] [id number] [address] [place] [address], [place] [address] Nov, [facility] [address] [id number] [address] [place] [address], [place] [address] Nov, [facility] [address] [id number] [address] [place] [address], [place] [address] Nov, [facility] [address] [id number] [address] [place] [address], [place] [address] Nov, [facility] [address] [id number] [address] [place] [address], [place] [address] Nov, [facility] [address] [id number] [address] [place] [address], [place] [address] Oct, [facility] [address] [id number] [address] [place] [address], [place] [address] Oct, [facility] [address] [id number] [address] [place] [address], [place] [address] Oct, [facility] [address] [id number] [address] [place] [address], [place] [address] Oct, [facility] [address] [id number] [address] [place] [address], [place] [address] Sep, [facility] [address] [id number] [address] [place] [address], [place] [address] Sep, [facility] [address] [id number] [address] [place] [address], [place] [address] Sep, [facility] [address] [id number] [address] [place] [address], [place] [address] Sep, [facility] [address] [id number] [address] [place] [address], [place] [address] Sep, [facility] [address] [id number] [address] [place] [address], [place] [address] August, [facility] [address] [id number] [address] [place] [address], [place] [address] 2012 [facility] [address] [id number] [address] [place] [address], [place] [address] Jul, [facility] [address] [id number] [address] [place] [address], [place] [address] Jul, [facility] [address] [id number] [address] [place] [address], [place] [address] 15 Jul, 2012 [facility] [address] [id number] [address] [place] [address] [place] [address] 09 Jul, 2012 [facility] [address] [id number] [address] [place] [address], [place] [address] 08 Jul, 2012 [facility] [address] [id number] [address] [place] [address], [place] [address] 26 Jun, 2012 [facility] [address] [id number] [address] [place] [address], [place] [address] 20 Jun, 2012 [facility] [address] [id number] [address] [place] [address], [place] [address] 15 Jun, 2012 [facility] [address] [id number] [address] [place] [address], [place] [address] 06 Jun, 2012 [facility] [address] [id number] [address] [place] [address], [place] [address] Jun, [facility] [address] [id number] [address] [place] [address], [place] [address] 28 May, 2012 [facility] [address] [id number] [address] [place] [address], [place] [address] 27 May, 2012 [facility] [address] [id number] [address] [place] [address], [place] [address] 25 May, 2012 [facility] [address] [id number] [address] [place] [address], [place] [address] May, [facility] [address] [id number] [address] [place] [address], [place] [address] 20 May, 2012 [facility] [address] [id number] [address] [place] [address], [place] [address] 14 May, 2012 [facility] [address] [id number] [address] [place] [address], [place] [address] 13 May, 2012 [facility] [address] [id number] [address] [place] [address], [place] [address] 08 May, 2012 [facility] [address] [id number] [address] [place] [address], [place] [address] May, [facility] [address] [id number] [address] [place] [address], [place] [address] Apr, [facility] [address] [id number] [address] [place] [address], [place] [address] Apr, [facility] [address] [id number] [address] [place] [address], [place] [address] Apr, [facility] [address] [id number] [address] [place] [address], [place] [address] Apr, [facility] [address] [id number] [address] [place] [address], [place] [address] Apr, [facility] [address] [id number] [address] [place] [address], [place] [address] Mar, [facility] [address] [id number] [address] [place] [address], [place] [address] Mar, [facility] [address] [id number] [address] [place] [address], [place] [address] Mar, [facility] [address] [id number] [address] [place] [address], [place] [address] Mar, [facility] [address] [id number] [address] [place] [address], [place] [address] Mar, [facility] [address] [id number] [address] [place] [address], [place] [address] Mar, [facility] [address] [id number] [address] [place] [address], [place] [address] Mar, [facility] [address] [id number] [address] [place] [address], [place] [address] Mar, [facility] [address] [id number] [address] [place] [address], [place] [address] Mar, [facility] [address] [id number] [address] [place] [address], [place] [address] Mar, [facility] [address] [id number] [address] [place] [address], [place] [address] 30 Feb, 2012 [facility] [address] [id number] [address] [place] [address], [place] [address] 30 Feb, 2012 [facility] [address] [id number] [address] [place] [address], [place] [address] Feb, [facility] [address] [id number] [address] [place] [address], [place] [address] Feb, [facility] [address] [id number] [address] [place] [address], [place] [address] Feb, [facility] [address] [id number] [address] [place] [address], [place] [address] Feb, [facility] [address] [id number] [address] [place] [address], [place] [address] Feb, [facility] [address] [id number] [address] [place] [address], [place] [address] Feb, [facility] [address] [id number] [address] [place] [address], [place] [address] Feb, [facility] [address] [id number] [address] [place] [address], [place] [address] 16 Feb, 2012 [facility] [address] [id number] [address] [place] [address], [place] [address] Feb, [facility] [address] [id number] [address] [place] [address], [place] [address] Feb, [facility] [address] [id number] [address] [place] [address], [place] [address] Feb, [facility] [address] [id number] [address] [place] [address], [place] [address] Feb, [facility] [address] [id number] [address] [place] [address], [place] [address] Feb, [facility] [address] [id number] [address] [place] [address], [place] [address] 08 Feb, 2012 [facility] [address] [id number] [address] [place] [address], [place] [address] 07 Feb, 2012 [facility] [address] [id number] [address] [place] [address], [place] [address] Feb, [facility] [address] [id number] [address] [place] [address], [place] [address] Jan, [facility] [address] [id number] [address] [place] [address], [place] [address] Jan, [facility] [address] [id number] [address] [place] [address], [place] [address] Jan, [facility] [address] [id number] [address] [place] [address], [place] [address] Jan, [facility] [address] [id number] [address] [place] [address], [place] [address] Jan, [facility] [address] [id number] [address] [place] [address], [place] [address] Jan, [facility] [address] [id number] [address] [place] [address], [place] [address] Jan, [facility] [address] [id number] [address] [place] [address], [place] [address] Jan, [facility] [address] [id number] [address] [place] [address], [place] [address] Jan, [facility] [address] [id number] [address] [place] [address], [place] [address] Jan, [facility] [address] [id number] [address] [place] [address], [place] [address] 24 Dec, 2011 [facility] [address] [id number] [address] [place] [address], [place] [address] 18 Dec, 2011 [facility] [address] [id number] [address] [place] [address], [place] [address] 04 Dec, 2011 [facility] [address] [id number] [address] [place] [address] Dec, [facility] [address] [id number] [address] [place] [address], [place] [address] Nov, [facility] [address] [id number] [address] [place] [address], [place] [address] Nov, [facility] [address] [id number] [address] [place] [address], [place] [address] Nov, [facility] [address] [id number] [address] [place] [address], [place] [address] Nov, [facility] [address] [id number] [address] [place] [address], [place] [address] Nov, [facility] [address] [id number] [address] [place] [address], [place] [address] Nov, [facility] [address] [id number] [address] [place] [address], [place] [address] Oct, [facility] [address] [id number] [address] [place] [address], [place] [address] Oct, [facility] [address] [id number] [address] [place] [address], [place] [address] Oct, [facility] [address] [id number] [address] [place] [address], [place] [address] Oct, [facility] [address] [id number] [address] [place] [address], [place] [address] Oct, [facility] [address] [id number] [address] [place] [address], [place] [address] Sep, [facility] [address] [id number] [address] [place] [address], [place] [address] Sep, [facility] [address] [id number] [address] [place] [address], [place] [address] Sep, [facility] [address] [id number] [address] [place] [address], [place] [address] Sep, [facility] [address] [id number] [address] [place] [address], [place] [address] 05 Sep, 2011 [facility] [address] [id number] [address] [place] [address], [place] [address] August, [facility] [address] [id number] [address] [place] [address], [place] [address] August, [facility] [address] [id number] [address] [place] [address], [place] [address] August, [facility] [address] [id number] [address] [place] [address], [place] [address] August, [facility] [address] [id number] [address] [place] [address], [place] [address] Jul, [facility] [address] [id number] [address] [place] [address], [place] [address] Jul, [facility] [address] [id number] [address] [place] [address], [place] [address] Jul, [facility] [address] [id number] [address] [place] [address], [place] [address] Jul, [facility] [address] [id number] [address] [place] [address], [place] [address] Jul, [facility] [address] [id number] [address] [place] [address], [place] [address] Jul, [facility] [address] [id number] [address] [place] [address], [place] [address] 11 Jul, 2011 [facility] [address] [id number] [address] [place] [address], [place] [address] 10 Jul, 2011 [facility] [address] [id number] [address] [place] [address], [place] [address] 09 Jul, 2011 [facility] [address] [id number] [address] [place] [address], [place] [address] 07 Jul, 2011 [facility] [address] [id number] [address] [place] [address], [place] [address] 05 Jul, 2011 [facility] [address] [id number] [address] [place] [address], [place] [address] Jul, [facility] [address] [id number] [address] [place] [address], [place] [address] Jul, [facility] [address] [id number] [address] [place] [address], [place] [address] Jul, [facility] [address] [id number] [address] [place] [address], [place] [address] 28 Jun, 2011 [facility] [address] [id number] [address] [place] [address], [place] [address] 27 Jun, 2011 [facility] [address] [id number] [address] [place] [address], [place] [address] 20 Jun, 2011 [facility] [address] [id number] [address] [place] [address], [place] [address] Jun, [facility] [address] [id number] [address] [place] [address], [place] [address] May, [facility] [address] [id number] [address] [place] [address], [place] [address] May, [facility] [address] [id number] [address] [place] [address], [place] [address] May, [facility] [address] [id number] [address] [place] [address], [place] [address] Apr, [facility] [address] [id number] [address] [place] [address], [place] [address] 18 Apr, 2011 [facility] [address] [id number] [address] [place] [address], [place] [address] Apr, [facility] [address] [id number] [address] [place] [address], [place] [address] Apr, [facility] [address] [id number] [address] [place] [address], [place] [address] Apr, [facility] [address] [id number] [address] [place] [address], [place] [address] 27 Mar, 2011 [facility] [address] [id number] [address] [place] [address], [place] [address] Mar, [facility] [address] [id number] [address] [place] [address], [place] [address] Mar, [facility] [address] [id number] [address] [place] [address], [place] [address] Mar, [facility] [address] [id number] [address] [place] [address], [place] [address] 16 Mar, 2011 [facility] [address] [id number] [address] [place] [address], [place] [address] Mar, [facility] [address] [id number] [address] [place] [address], [place] [address] 05 Mar, 2011 [facility] [address] [id number] [address] [place] [address], [place] [address] 29 Feb, 2011 [facility] [address] [id number] [address] [place] [address], [place] [address] Feb, [facility] [address] [id number] [address] [place] [address], [place] [address] Feb, [facility] [address] [id number] [address] [place] [address], [place] [address] Feb, [facility] [address] [id number] [address] [place] [address], [place] [address] 16 Feb, 2011 [facility] [address] [id number] [address] [place] [address], [place] [address] 14 Feb, 2011 [facility] [address] [id number] [address] [place] [address], [place] [address] 10 Feb, 2011 [facility] [address] [id number] [address] [place] [address], [place] [address] 31 Jan, 2011 [facility] [address] [id number] [address] [place] [address], [place] [address] 31 Jan, 2011 [facility] [address] [id number] [address] [place] [address], [place] [address] 31 Jan, 2011 [facility] [address] [id number] [address] [place] [address], [place] [address] 18 Jan, 2011 [facility] [address] [id number] [address] [place] [address], [place] [address] 17 Jan, 2011 [facility] [address] [id number] [address] [place] [address], [place] [address] 17 Jan, 2011 [facility] [address] [id number] [address] [place] [address], [place] [address] 17 Jun, 2010 [facility] [address] [id number] [address] [place] [address], [place] [address] 30 Mar, 2010 [facility] [address] [id number] [address] [place] [address], [place] [address] 20 Mar, 2010 [facility] [address] [id number] [address] [place] [address], [place] [address] 14 Mar, 2010 [facility] [address] [id number] [address] [place] [address], [place] [address] 14 Mar, 2010 [facility] [address] [id number] [address] [place] [address], [place] [address] 13 Mar, 2010 [facility] [address] [id number] [address] [place] [address], [place] [address] 07 Mar, 2010 [facility] [address] [id number] [address] [place] [address], [place] [address] 02 Mar, 2010 [facility] [address] [id number] [address] [place] [address], [place] [address] Mar, [facility] [address] [id number] [address] [place] [address], [place] [address] 30 Feb, 2010 [facility] [address] [id number] [address] [place] [address], [place] [address] 29 Feb, 2010 [facility] [address] [id number] [address] [place] [address], [place] [address] 17 Feb, 2010 [facility] [address] [id number] [address] [place] [address], [place] [address] 17 Feb, 2010 [facility] [address] [id number] [address] [place] [address], [place] [address] 16 Feb, 2010 [facility] [address] [id number] [address] [place] [address], [place] [address] 08 Feb, 2010 [facility] [address] [id number] [address] [place] [address], [place] [address] 04 Feb, 2010 [facility] [address] [id number] [address] [place] [address], [place] [address] Feb, [facility] [address] [id number] [address] [place] [address], [place] [address] Jan, [facility] [address] [id number] [address] [place] [address], [place] [address] Jan, [facility] [address] [id number] [address] [place] [address], [place] [address] Jan, [facility] [address] [id number] [address] [place] [address], [place] [address] Jan, [facility] [address] [id number] [address] [place] [id number] 29 Mar, 2009 [facility] [address] [id number] [address] [place] [id number] 22 Mar, 2009 [facility] [address] [id number] [address] [place] [id number] 19 Mar, 2009 [facility] [address] [id number] [address] [place] [address], [place] [address] 19 Mar, 2009 [facility] [address] [id number] [address] [place] [id number] 14 Mar, 2009 [facility] [address] [id number] [address] [place] [address] 10 Mar, 2009 [facility] [address] [id number] [address] [place] [phone] Feb, [facility] [place] [address] [facility] [id number] [address] [place] [id number] Feb, [facility] [place] [address] [facility] [id number] [address] [place] [phone] Jan, [facility] [place] [address] [facility] [id number] [address] [place] [phone] Sep, [facility] [place] [address] [facility] [id number] [address] [place] [id number] May, IMMUNIZATIONS No Known Immunizations SOCIAL HISTORY [...] Surgical History Left ear surgery Hospitalization History [facility] in [place]- Spontane ous Pneumothorax Hospitalization History [facility]- Colon resection [facility] - diarrhea/ couldnt urin ate nov 2017 Hospitalization History pain /hip to foot right side 10/16/19 19
--- OUTSIDE RECORDS SUMMARY | 2019-08-28 08:50 | XMS REPORT ---
Author Author Dixon Lundberg Doctor Organization [facility] Address Unknown Phone Unavailable Care Team Providers Care Leadite Man Name Role Phone Migration, Doctor Unavailable Unavailable PROBLEMS Type Condition ICD9-CM Code DQP66-LS Code Onset Dates Condition S tatus SNOMED Code Problem Insomnia G47.00 Active 137674220 Problem Anxiety F41.9 Active 68688320 Problem HTN (hypertension) I10 Active 3 2892489 Problem Chronic pain G89.29 Active 8445372 1 Problem Constipation K59.00 Active 6313160 8 Problem Thoracic back pain, unspecif ied back pain laterality, unspecified chronicity M54.6 Active 456207201 Problem Hyperlipidemia E78.5 Active 02765 004 Problem Vitamin D deficiency E55.9 Active 46875928 Problem Chronic kidney disease, stage III (moderate) N18.3 Active 998606263 Problem Vision loss H54.7 Active 15861449 1 Problem Age-related cataract of both eyes, unspecified age-related cataract type H25.9 Active 16166748 Problem Primary insomnia F51.01 Active 397 2004 Problem Psychophysiologic insomnia F51.04 Act saúl 593384240 Problem Environmental allergies Z91.09 Active 954464381 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 95815883 Problem Schizophrenia, unspecified type F20.9 Active 60820954 Problem Psychophysiological insomnia F51.04 A ctive 912515341 Problem Psychophysiological insomnia F51.04 A ctive [id number] ALLERGIES No Information ENCOUNTERS Encounter Location Date Diagnosis [facility] [address] [facility] [id number] [address] [place] [address] Jul, [facility] [address] [facility] [id number] [address] [place] [address] Jul, Thoracic back pain, unspecif ied back pain laterality, unspecified chronicity M54.6 [facility] [address] [facility] [id number] [address] [place] [address] Jul, Anxiety F41.9 and Thoracic b ack pain, unspecified back pain laterality, unspecified chronicity M54.6 [facility] [address] [id number] [address] [place] [address] 23 Jun, 2019 [facility] [address] [id number] [address] [place] [address] 10 Jun, 2019 Thoracic back pain, unspecif ied back pain laterality, unspecified chronicity M54.6 [facility] [address] [id number] [address] [place] [address] 09 Jun, 2019 [facility] [address] [id number] [address] [place] [address] 04 Jun, 2019 Anxiety F41.9 and Thoracic b ack pain, unspecified back pain laterality, unspecified chronicity M54.6 [place] [address] [id number] [address] [place] [address] Jun, [facility] [address] [id number] [address] [place] [address] May, [facility] [address] [id number] [address] [place] [address] May, Psychophysiologic insomnia F 51.04 [facility] [address] [id number] [address] [place] [address] 13 May, 2019 Other constipation K59.09 [facility] [address] [id number] [address] [place] [address] 11 May, 2019 Thoracic back pain, unspecif ied back pain laterality, unspecified chronicity M54.6 [facility] [address] [id number] [address] [place] [address] 06 May, 2019 Anxiety F41.9 and Thoracic b ack pain, unspecified back pain laterality, unspecified chronicity M54.6 [facility] [address] [id number] [address] [place] [address] 06 May, 2019 [facility] [address] [id number] [address] [place] [address] Apr, [facility] [address] [id number] [address] [place] [address] Apr, [place] [address] [facility] [id number] [address] [place] [address] Apr, Psychophysiological insomnia F51.04 [place] [address] [place] [id number] [address] [place] [address] Apr, Thoracic back pain, unspecif ied back pain laterality, unspecified chronicity M54.6 [place] [address] [facility] [id number] [address] [place] [address] Apr, Thoracic back pain, unspecif ied back pain laterality, unspecified chronicity M54.6 [place] [address] [place] [id number] [address] [place] [address] Apr, Anxiety F41.9 [place] [address] [place] [id number] [place] [address] Apr, Psychophysiological insomnia F51.04 [place] [address] [address] Mar, Encounter for Medicare annua l wellness [...] both eyes, unspecified age-related cataract type H25.9 [place] [address] [place] [id number] [address] [place] [address] Mar, Thoracic back pain, unspecif ied back pain laterality, unspecified chronicity M54.6 [place] [address] [place] [id number] [address] [place] [address] 16 Mar, 2019 Psychophysiological insomnia F51.04 [facility] [address] [id number] [address] [place] [address] Mar, Thoracic back pain, unspecif ied back pain laterality, unspecified chronicity M54.6 and Anxiety F41.9 [facility] [address] [id number] [address] [place] [address] Mar, Psychophysiological insomnia F51.04 [facility] [address] [id number] [address] [place] [address] Mar, [facility] [address] [id number] [address] [place] [address] Mar, Psychophysiological insomnia F51.04 [facility] [address] [id number] [address] [place] [address] Mar, [facility] [address] [id number] [address] [place] [address] Feb, [facility] [address] [id number] [address] [place] [address] Feb, Thoracic back pain, unspecif ied back pain laterality, unspecified chronicity M54.6 [facility] [address] [id number] [address] [place] [address] Feb, Anxiety F41.9 and Thoracic b ack pain, unspecified back pain laterality, unspecified chronicity M54.6 [facility] [address] [id number] [address] [place] [address] Feb, Insomnia G47.00 ; HTN (hyper tension) I10 and Constipation K59.00 [facility] [address] [id number] [address] [place] [address] Feb, [facility] [address] [id number] [address] [place] [address] Jan, Thoracic back pain, unspecif ied back pain laterality, unspecified chronicity M54.6 [facility] [address] [id number] [address] [place] [address] Jan, Anxiety F41.9 [facility] [address] [id number] [address] [place] [address] Jan, Anxiety F41.9 [facility] [address] [id number] [address] [place] [address] Jan, Anxiety F41.9 and Thoracic b ack pain, unspecified back pain laterality, unspecified chronicity M54.6 [facility] [address] [id number] [address] [place] [address] Jan, [facility] [address] [id number] [address] [place] [address] Jan, [facility] [address] [id number] [address] [place] [address] Dec, Thoracic back pain, unspecif ied back pain laterality, unspecified chronicity M54.6 [facility] [address] [id number] [address] [place] [address] Dec, Thoracic back pain, unspecif ied back pain laterality, unspecified chronicity M54.6 [facility] [address] [id number] [address] [place] [address] Nov, Thoracic back pain, unspecif ied back pain laterality, unspecified chronicity M54.6 [facility] [address] [id number] [address] [place] [address] Nov, Anxiety F41.9 and Thoracic b ack pain, unspecified back pain laterality, unspecified chronicity M54.6 [facility] [address] [id number] [address] [place] [address] Nov, [facility] [address] [id number] [address] [place] [address] Nov, [facility] [address] [id number] [address] [place] [address] Nov, [facility] [address] [id number] [address] [place] [address] Oct, Thoracic back pain, unspecif ied back pain laterality, unspecified chronicity M54.6 [facility] [address] [id number] [address] [place] [address] Oct, Anxiety F41.9 and Thoracic b ack pain, unspecified back pain laterality, unspecified chronicity M54.6 [facility] [address] [id number] [address] [place] [address] Oct, Schizophrenia, unspecified t ype F20.9 and Acute kidney injury N17.9 [facility] [address] [id number] [address] [place] [address] Oct, [facility] [address] [id number] [address] [place] [address] Oct, [facility] [address] [id number] [address] [place] [address] Oct, Thoracic back pain, unspecif ied back pain laterality, unspecified chronicity M54.6 [facility] [address] [id number] [address] [place] [address] Oct, [facility] [address] [id number] [address] [place] [address] Oct, [facility] [address] [id number] [address] [place] [address] Sep, Anxiety F41.9 [facility] [address] [id number] [address] [place] [address] Sep, [facility] [address] [id number] [address] [place] [address] Sep, Thoracic back pain, unspecif ied back pain laterality, unspecified chronicity M54.6 [facility] [address] [id number] [address] [place] [address] Sep, [facility] [address] [facility] [id number] [address] [place] [address] Sep, [facility] [address] [facility] [id number] [address] [place] [address] Sep, [facility] [address] [facility] [id number] [address] [place] [address] Sep, [facility] [address] [facility] [id number] [address] [place] [address] Sep, [facility] [address] [facility] [id number] [address] [place] [address] Sep, [facility] [address] [facility] [id number] [address] [place] [address] Sep, Chronic pain G89.29 ; Chroni c kidney disease, stage III (moderate) N18.3 ; Hyperlipidemia E78.5 and Insomnia G47.00 [facility] [address] [facility] [id number] [address] [place] [address] Sep, Thoracic back pain, unspecif ied back pain laterality, unspecified chronicity M54.6 [facility] [address] [facility] [id number] [address] [place] [address] August, Anxiety F41.9 [facility] [address] [facility] [id number] [address] [place] [address] August, Thoracic back pain, unspecif ied back pain laterality, unspecified chronicity M54.6 and Anxiety F41.9 [facility] [address] [facility] [id number] [address] [place] [address] August, 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 [facility] [address] [facility] [id number] [address] [place] [address] August, 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 [facility] [address] [facility] [id number] [address] [place] [address] August, [facility] [address] [facility] [id number] [address] [place] [address] August, [facility] [address] [id number] [address] [place] [address] August, Thoracic back pain, unspecif ied back pain laterality, unspecified chronicity M54.6 [facility] [address] [id number] [address] [place] [address] August, [facility] [address] [id number] [address] [place] [address] August, Anxiety F41.9 and Thoracic b ack pain, unspecified back pain laterality, unspecified chronicity M54.6 [facility] [address] [id number] [address] [place] [address] Jul, [facility] [address] [id number] [address] [place] [address] Jul, Thoracic back pain, unspecif ied back pain laterality, unspecified chronicity M54.6 [facility] [address] [id number] [address] [place] [address] Jun, Anxiety F41.9 and Thoracic b ack pain, unspecified back pain laterality, unspecified chronicity M54.6 [facility] [address] [id number] [address] [place] [address] Jun, Anxiety F41.9 and Thoracic b ack pain, unspecified back pain laterality, unspecified chronicity M54.6 [facility] [address] [id number] [address] [place] [address] Jun, Thoracic back pain, unspecif ied back pain laterality, unspecified chronicity M54.6 [facility] [address] [id number] [address] [place] [address] Jun, Anxiety F41.9 and Thoracic b ack pain, unspecified back pain laterality, unspecified chronicity M54.6 [facility] [address] [id number] [address] [place] [address] May, [facility] [address] [id number] [address] [place] [address] 11 May, 2018 [facility] [address] [id number] [address] [place] [address] May, [facility] [address] [id number] [address] [place] [address] 06 May, 2018 Anxiety F41.9 and Encounter for medication monitoring Z51.81 [facility] [address] [id number] [address] [place] [address] 05 May, 2018 Anxiety F41.9 and Thoracic b ack pain, unspecified back pain laterality, unspecified chronicity M54.6 [place] [address] [id number] [address] [place] [address] Apr, Hyperlipidemia 272.4 [facility] [address] [id number] [address] [place] [address] Apr, Chronic pain G89.29 ; Anxiet y F41.9 ; Cervical radiculopathy M54.12 and Vision loss H54.7 [facility] [address] [id number] [address] [place] [address] Apr, [facility] [address] [id number] [address] [place] [address] Apr, Anxiety F41.9 and Thoracic b ack pain, unspecified back pain laterality, unspecified chronicity M54.6 [facility] [address] [id number] [address] [place] [address] Mar, [facility] [address] [id number] [address] [place] [address] Mar, Anxiety F41.9 and Thoracic b ack pain, unspecified back pain laterality, unspecified chronicity M54.6 [facility] [address] [id number] [address] [place] [address] Feb, Anxiety F41.9 and Thoracic b ack pain, unspecified back pain laterality, unspecified chronicity M54.6 [facility] [address] [id number] [address] [place] [address] 07 Feb, 2018 Thoracic back pain, unspecif ied back pain laterality, unspecified chronicity M54.6 [facility] [address] [id number] [address] [place] [address] 29 Jan, 2018 [facility] [address] [id number] [address] [place] [address] Jan, Anxiety F41.9 and Thoracic b ack pain, unspecified back pain laterality, unspecified chronicity M54.6 [facility] [address] [id number] [address] [place] [address] 19 Dec, 2017 Diarrhea of presumed infecti ous origin R19.7 [facility] [address] [id number] [address] [place] [address] 19 Dec, 2017 Diarrhea of presumed infecti ous origin R19.7 [facility] [address] [id number] [address] [place] [address] 18 Dec, 2017 Thoracic back pain, unspecif ied back pain laterality, unspecified chronicity M54.6 [facility] [address] [id number] [address] [place] [address] 17 Dec, 2017 [facility] [address] [id number] [address] [place] [address] 17 Dec, 2017 Anxiety F41.9 and Thoracic b ack pain, unspecified back pain laterality, unspecified chronicity M54.6 [facility] [address] [id number] [address] [place] [address] 13 Dec, 2017 Diarrhea of presumed infecti ous origin R19.7 [facility] [address] [id number] [address] [place] [address] 13 Dec, 2017 [facility] [address] [id number] [address] [place] [address] 12 Dec, 2017 Anxiety F41.9 and Thoracic b ack pain, unspecified back pain laterality, unspecified chronicity M54.6 [place] [address] [facility] [id number] [address] [place] [address] Dec, Anxiety F41.9 and Thoracic b ack pain, unspecified back pain laterality, unspecified chronicity M54.6 [facility] [address] [place] [id number] Dec, Diarrhea of presumed infectious origin R 19.7 ; Anxiety F41.9 ; Thoracic back pain, unspecified back pain laterality, unspecified chronicity M54.6 and HTN (hypertension) I10 [place] [address] [facility] [id number] [address] [place] [address] Dec, Anxiety F41.9 [facility] [address] [place] [id number] Dec, Anxiety F41.9 ; Diarrhea of presumed inf ectious origin R19.7 ; Generalized abdominal pain R10.84 and Localized edema R60.0 [place] [address] [place] [id number] [address] [place] [address] Nov, [facility] [address] [place] [id number] Nov, Anxiety F41.9 ; Urinary retention R33.9 ; Diarrhea of presumed infectious origin R19.7 ; Weakness R53.1 ; Acute kidney failure, unspecified N17.9 ; Chronic kidney disease, stage III (moderate) N18.3 and Thoracic back pain, unspecified back pain laterality, unspecified chronicity M54.6 [place] [address] [place] [id number] [address] [place] [address] Oct, Thoracic back pain, unspecif ied back pain laterality, unspecified chronicity M54.6 and Anxiety F41.9 [place] [address] [facility] [id number] [address] [place] [address] Sep, Thoracic back pain, unspecif ied back pain laterality, unspecified chronicity M54.6 and Anxiety F41.9 [place] [address] [place] [id number] [address] [place] [address] Sep, Thoracic back pain, unspecif ied back pain laterality, unspecified chronicity M54.6 ; Anxiety F41.9 and Encounter for medication monitoring Z51.81 [facility] [address] [id number] [address] [place] [address] August, [facility] [address] [id number] [address] [place] [address] August, Thoracic back pain, unspecif ied back pain laterality, unspecified chronicity M54.6 and Anxiety F41.9 [facility] [address] [id number] [address] [place] [address] August, Hyperlipidemia E78.5 and HTN (hypertension) I10 [place] [address] [facility] [id number] [address] [place] [address] August, [place] [address] [facility] [id number] [address] [place] [address] August, Medicare welcome exam Z00.00 ; Chronic kidney failure N18.9 ; Anxiety F41.9 ; Chronic pain G89.29 ; Insomnia G47.00 ; Hyperlipidemia E78.5 ; HTN (hypertension) I10 and Thoracic back pain, unspecified back pain laterality, unspecified chronicity M54.6 [facility] [address] [id number] [address] [place] [address] Jul, [facility] [address] [facility] [id number] [address] [place] [address] Jul, [facility] [address] [id number] [address] [place] [address] Jul, [facility] [address] [id number] [address] [place] [address] Jul, Anxiety F41.9 [facility] [address] [id number] [address] [place] [address] Jul, Thoracic back pain, unspecif ied back pain laterality, unspecified chronicity M54.6 and Anxiety F41.9 [facility] [address] [id number] [address] [place] [address] Jun, Thoracic back pain, unspecif ied back pain laterality, unspecified chronicity M54.6 and Anxiety F41.9 [facility] [address] [id number] [address] [place] [address] May, Thoracic back pain, unspecif ied back pain laterality, unspecified chronicity M54.6 and Anxiety F41.9 [place] [address] [id number] [address] [place] [address] Apr, Thoracic back pain, unspecif ied back pain laterality, unspecified chronicity M54.6 and Anxiety F41.9 [place] [address] [id number] [address] [place] [address] Mar, [place] [address] [id number] [address] [place] [address] Mar, Thoracic back pain, unspecif ied back pain laterality, unspecified chronicity M54.6 and Anxiety F41.9 [place] [address] [id number] [address] [place] [address] Mar, Thoracic back pain, unspecif ied back pain laterality, unspecified chronicity M54.6 ; HTN (hypertension) I10 ; Hyperlipidemia E78.5 and Anxiety F41.9 [place] [address] [id number] [address] [place] [address] Feb, Thoracic back pain, unspecif ied back pain laterality, unspecified chronicity M54.6 and Anxiety F41.9 [place] [address] [id number] [address] [place] [phone] Nov, [place] [address] [id number] [address] [place] [phone] Oct, [facility] [address] [id number] [address] [place] [phone] Oct, Thoracic back pain, unspecif ied back pain laterality, unspecified chronicity M54.6 [facility] [address] [facility] [id number] [address] [place] [phone] Oct, HTN (hypertension) I10 ; Con stipation K59.00 ; Hyperlipidemia E78.5 ; Thoracic back pain, unspecified back pain laterality, unspecified chronicity M54.6 ; Chronic pain G89.29 ; Anxiety F41.9 ; Chronic kidney failure N18.9 ; Environmental allergies Z91.09 ; Vitamin D deficiency E55.9 and Primary insomnia F51.01 [facility] [address] [facility] [id number] [address] [place] [phone] Sep, Anxiety F41.9 [facility] [address] [place] [id number] [place] [phone] Sep, [facility] [address] [place] [id number] [place] [phone] August, Anxiety F41.9 [facility] [address] [place] [id number] [address] [place] [phone] August, [facility] [address] [facility] [id number] [address] [place] [phone] Jul, Anxiety F41.9 [facility] [address] [place] [id number] [address] [place], [place] [address] Jul, [facility] [address] [id number] [address] [place] [address] Jun, Anxiety F41.9 [facility] [address] [facility] [id number] [address] [place] [address] Jun, [facility] [address] [id number] [address] [place] [phone] May, [facility] [address] [facility] [id number] [address] [place] [address] May, [facility] [address] [id number] [address] [place] [phone] May, [facility] [address] [facility] [id number] [address] [place] [phone] Apr, [facility] [address] [id number] [address] [place] [phone] Apr, [facility] [address] [id number] [address] [place] [address] Apr, Anxiety F41.9 [facility] [id number] [place] [address] Apr, Anxiety F41.9 [facility] [address] [facility] [id number] [address] [place] [address] Apr, [facility] [address] [id number] [address] [place] [address] Mar, HTN (hypertension) I10 ; Phillip mor R25.1 ; Hypercholesterolemia E78.0 ; Constipation K59.00 ; Chronic pain G89.29 ; Hyperlipidemia E78.5 ; Insomnia G47.00 ; Anxiety F41.9 and Thoracic back pain, unspecified back pain laterality, unspecified chronicity M54.6 [facility] [id number] [place] [address] Mar, Tremor R25.1 ; HTN (hyperten stas) I10 ; Hypercholesterolemia E78.0 ; Constipation K59.00 ; Chronic pain G89.29 ; Hyperlipidemia E78.5 ; Insomnia G47.00 ; Anxiety F41.9 and Thoracic back pain, unspecified back pain laterality, unspecified chronicity M54.6 [facility] [address] [id number] [address] [place] [address] Mar, [facility] [id number] [place] [address] Mar, [facility] [address] [id number] [address] [place] [address] Feb, [facility] [address] [id number] [address] [place] [address] Jan, [facility] [address] [id number] [address] [place] [address] Jan, [facility] [address] [id number] [address] [place] [address] 15 Dec, 2015 [facility] [address] [id number] [address] [place] [address] Nov, [facility] [address] [id number] [address] [place] [address] Nov, [facility] [address] [id number] [address] [place] [address] Oct, Anxiety F41.9 [facility] [address] [facility] [id number] [address] [place] [address] Oct, Chronic pain G89.29 [facility] [address] [facility] [id number] [address] [place] [address] Sep, [facility] [address] [id number] [address] [place] [address] Sep, [facility] [address] [facility] [id number] [address] [place] [address] Sep, [facility] [address] [facility] [id number] [address] [place] [address] Sep, [facility] [address] [facility] [id number] [address] [place] [address] Sep, Chronic pain syndrome G89.4 [facility] [address] [facility] [id number] [address] [place] [address] Sep, HTN (hypertension) I10 ; Chr onic pain G89.29 ; Hypercholesterolemia E78.0 ; Chronic kidney failure N18.9 ; Constipation, unspecified constipation type K59.00 ; Anxiety F41.9 and Thoracic back pain, unspecified back pain laterality, unspecified chronicity M54.6 [facility] [address] [facility] [id number] [address] [place] [address] August, Chronic pain syndrome G89.4 [facility] [address] [id number] [address] [place] [address] August, Chronic pain syndrome G89.4 [facility] [address] [id number] [address] [place] [address] Jul, Anxiety disorder, unspecifie d F41.9 and Chronic pain syndrome G89.4 [facility] [address] [id number] [address] [place] [address] Jul, Insomnia, unspecified G47.00 and Chronic pain syndrome G89.4 [facility] [address] [id number] [address] [place] [address] Jul, Allergic rhinitis J30.9 [facility] [address] [id number] [address] [place] [address] Jul, Constipation, unspecified K5 9.00 [facility] [address] [id number] [address] [place] [address] Jul, [facility] [address] [id number] [address] [place] [address] Jun, [facility] [address] [id number] [address] [place] [address] Jun, [facility] [address] [id number] [address] [place] [address] Jun, [facility] [address] [id number] [address] [place] [address] Jun, [facility] [address] [id number] [address] [place] [address] Jun, [facility] [address] [id number] [address] [place] [address] Jun, [facility] [address] [facility] [id number] [address] [place] [address] May, [facility] [address] [id number] [address] [place] [address] May, [facility] [address] [facility] [id number] [address] [place] [address] May, Anxiety F41.9 ; Insomnia G47 .00 ; Hyperlipidemia E78.5 ; Chronic pain G89.29 ; HTN (hypertension) I10 ; Environmental allergies V15.09 and Constipation 564.00 [facility] [address] [facility] [id number] [address] [place] [address] Apr, [facility] [address] [facility] [id number] [address] [place] [address] Apr, [facility] [id number] [place] [address] Apr, [facility] [id number] [place] [address] Mar, [facility] [id number] [place] [address] Mar, [facility] [address] [id number] [address] [place] [address] Mar, [facility] [id number] [place] [address] Feb, [facility] [address] [id number] [address] [place] [address] Feb, [facility] [address] [facility] [id number] [address] [place] [address] Feb, [facility] [address] [facility] [id number] [address] [place] [address] Jan, HTN (hypertension) I10 ; Con stipation K59.00 ; Chronic pain G89.29 ; Hyperlipidemia E78.5 ; Hypercholesterolemia E78.0 ; Insomnia G47.00 and Anxiety F41.9 [facility] [address] [facility] [id number] [address] [place] [address] Jan, [facility] [address] [facility] [id number] [address] [place] [address] Dec, [facility] [address] [facility] [id number] [address] [place] [address] Nov, [facility] [address] [facility] [id number] [address] [place] [address] Oct, Chronic kidney disease, unsp ecified 585.9 ; Chronic pain syndrome 338.4 ; Hyperlipidemia 272.4 and Essential hypertension 401.9 [facility] [address] [facility] [id number] [address] [place] [address] Oct, Chronic kidney disease 585.9 [facility] [address] [facility] [id number] [address] [place] [address] Oct, [facility] [address] [facility] [id number] [address] [place] [address] Oct, Chronic kidney disease, unsp ecified 585.9 ; Hypercalcemia 275.42 ; Hyperlipidemia 272.4 ; Essential hypertension 401.9 ; Chronic pain syndrome 338.4 ; Insomnia 780.52 ; Constipation 564.00 ; Environmental allergies V15.09 and Anxiety 300.00 [facility] [address] [facility] [id number] [address] [place] [address] Oct, Chronic kidney disease 585.9 [facility] [address] [facility] [id number] [address] [place] [address] Oct, [facility] [address] [facility] [id number] [address] [place] [address] Oct, Chronic kidney disease 585.9 and Hyperlipidemia 272.4 [facility] [address] [facility] [id number] [address] [place] [address] Oct, [facility] [address] [id number] [address] [place] [address] Oct, [facility] [address] [id number] [address] [place] [address] Sep, [facility] [address] [id number] [address] [place] [address] 15 Sep, 2014 [facility] [address] [id number] [address] [place] [address] 15 Sep, 2014 Chronic kidney disease 585.9 and Hyperlipidemia 272.4 [facility] [address] [id number] [address] [place] [address], [place] [address] 12 Sep, 2014 [facility] [address] [id number] [address] [place] [address], [place] [address] August, [facility] [address] [id number] [address] [place] [address], [place] [address] August, [facility] [address] [id number] [address] [place] [address], [place] [address] 14 Jul, 2014 [facility] [address] [id number] [address] [place] [address], [place] [address] Jul, [facility] [address] [id number] [address] [place] [address], [place] [address] Jun, [facility] [address] [id number] [address] [place] [address], [place] [address] Jun, [facility] [address] [id number] [address] [place] [address] 16 Jun, 2014 [facility] [address] [id number] [address] [place] [address] 16 Jun, 2014 [facility] [address] [id number] [address] [place] [phone] Jun, [facility] [address] [id number] [address] [place] [address], [place] [address] Jun, [facility] [address] [id number] [address] [place] [address] Jun, [facility] [address] [id number] [address] [place] [address] Jun, [facility] [address] [id number] [address] [place] [address] May, [facility] [address] [id number] [address] [place] [address], [place] [address] May, [facility] [address] [id number] [address] [place] [address], [place] [address] May, [facility] [address] [id number] [address] [place] [address], [place] [address] May, [facility] [address] [id number] [address] [place] [address], [place] [address] Apr, [facility] [address] [id number] [address] [place] [address], [place] [address] Apr, [facility] [address] [id number] [address] [place] [address], [place] [address] Apr, [facility] [address] [id number] [address] [place] [address], [place] [address] Apr, [facility] [address] [id number] [address] [place] [address], [place] [id number] Apr, [facility] [address] [id number] [address] [place] [address], [place] [address] Apr, [facility] [address] [id number] [address] [place] [address], [place] [address] Apr, [facility] [address] [id number] [address] [place] [address], [place] [address] Apr, [facility] [address] [id number] [address] [place] [address] Apr, [facility] [address] [id number] [address] [place] [address], [place] [address] Apr, [facility] [address] [id number] [address] [place] [address], [place] [address] Apr, [facility] [address] [id number] [address] [place] [address], [place] [address] Mar, [facility] [address] [id number] [address] [place] [address], [place] [address] Mar, [facility] [address] [id number] [address] [place] [address], [place] [address] Feb, [facility] [address] [id number] [address] [place] [address], [place] [address] Feb, [facility] [address] [id number] [address] [place] [address], [place] [address] Feb, [facility] [address] [id number] [address] [place] [address], [place] [address] Feb, [facility] [address] [id number] [address] [place] [address], [place] [address] Feb, [facility] [address] [id number] [address] [place] [address], [place] [address] Feb, [facility] [address] [id number] [address] [place] [address], [place] [address] Feb, [facility] [address] [id number] [address] [place] [address], [place] [address] Feb, [facility] [address] [id number] [address] [place] [address], [place] [address] Feb, [facility] [address] [id number] [address] [place] [address], [place] [address] Feb, [facility] [address] [id number] [address] [place] [address], [place] [address] Jan, [facility] [address] [id number] [address] [place] [address], [place] [address] Jan, [facility] [address] [id number] [address] [place] [address], [place] [address] Jan, [facility] [address] [id number] [address] [place] [address], [place] [address] Jan, [facility] [address] [id number] [address] [place] [address], [place] [address] 24 Jan, 2014 [facility] [address] [id number] [address] [place] [address], [place] [address] 24 Jan, 2014 [facility] [address] [id number] [address] [place] [address], [place] [address] Jan, [facility] [address] [id number] [address] [place] [address], [place] [address] 17 Jan, 2014 [facility] [address] [id number] [address] [place] [address], [place] [address] 16 Jan, 2014 [facility] [address] [id number] [address] [place] [address], [place] [address] Jan, [facility] [address] [id number] [address] [place] [address], [place] [address] Jan, [facility] [address] [id number] [address] [place] [address], [place] [address] 26 Dec, 2013 [facility] [address] [id number] [address] [place] [address], [place] [address] 26 Dec, 2013 [facility] [address] [id number] [address] [place] [address], [place] [address] 19 Dec, 2013 [facility] [address] [id number] [address] [place] [address], [place] [address] 19 Dec, 2013 [facility] [address] [id number] [address] [place] [address], [place] [address] 18 Dec, 2013 [facility] [address] [id number] [address] [place] [address], [place] [id number] 18 Dec, 2013 [facility] [address] [id number] [address] [place] [address], [place] [id number] 03 Dec, 2013 [facility] [address] [id number] [address] [place] [address], [place] [address] 03 Dec, 2013 [facility] [address] [id number] [address] [place] [address], [place] [address] Nov, [facility] [address] [id number] [address] [place] [address], [place] [address] Nov, [facility] [address] [id number] [address] [place] [address], [place] [address] Nov, [facility] [address] [id number] [address] [place] [address], [place] [address] Nov, [facility] [address] [id number] [address] [place] [address], [place] [address] Nov, [facility] [address] [id number] [address] [place] [address], [place] [address] Nov, [facility] [address] [id number] [address] [place] [address], [place] [address] Nov, [facility] [address] [id number] [address] [place] [address], [place] [address] Nov, [facility] [address] [id number] [address] [place] [address], [place] [address] Oct, [facility] [address] [id number] [address] [place] [address], [place] [address] Oct, [facility] [address] [id number] [address] [place] [address], [place] [address] Oct, [facility] [address] [id number] [address] [place] [address], [place] [address] Oct, [facility] [address] [id number] [address] [place] [address], [place] [address] Sep, [facility] [address] [id number] [address] [place] [address], [place] [address] Sep, [facility] [address] [id number] [address] [place] [address], [place] [address] Sep, [facility] [address] [id number] [address] [place] [address], [place] [address] Sep, [facility] [address] [id number] [address] [place] [address], [place] [address] Sep, [facility] [address] [id number] [address] [place] [address], [place] [address] Sep, [facility] [address] [id number] [address] [place] [address], [place] [address] Sep, [facility] [address] [id number] [address] [place] [address], [place] [address] Sep, [facility] [address] [id number] [address] [place] [address], [place] [address] August, [facility] [address] [id number] [address] [place] [address], [place] [address] August, [facility] [address] [id number] [address] [place] [address], [place] [address] August, [facility] [address] [id number] [address] [place] [address], [place] [id number] August, [facility] [address] [id number] [address] [place] [address], [place] [id number] August, [facility] [address] [id number] [address] [place] [address], [place] [address] August, [facility] [address] [id number] [address] [place] [address], [place] [id number] August, [facility] [address] [id number] [address] [place] [address], [place] [address] August, [facility] [address] [id number] [address] [place] [address], [place] [id number] August, [facility] [address] [id number] [address] [place] [address], [place] [id number] August, [facility] [address] [id number] [address] [place] [address], [place] [id number] Jul, [facility] [address] [id number] [address] [place] [address], [place] [id number] Jul, [facility] [address] [id number] [address] [place] [address], [place] [id number] Jul, [facility] [address] [id number] [address] [place] [address], [place] [id number] Jul, [facility] [address] [id number] [address] [place] [address], [place] [id number] Jul, [facility] [address] [id number] [address] [place] [address], [place] [id number] Jul, [facility] [address] [id number] [address] [place] [address], [place] [id number] Jul, [facility] [address] [id number] [address] [place] [address], [place] [id number] Jul, [facility] [address] [id number] [address] [place] [address], [place] [address] Jun, [facility] [address] [id number] [address] [place] [address], [place] [id number] Jun, [facility] [address] [id number] [address] [place] [address], [place] [id number] Jun, [facility] [address] [id number] [address] [place] [address], [place] [id number] Jun, [facility] [address] [id number] [address] [place] [address], [place] [address] Jun, [facility] [address] [id number] [address] [place] [address], [place] [id number] Jun, [facility] [address] [id number] [address] [place] [address], [place] [address] May, [facility] [address] [id number] [address] [place] [address], [place] [id number] May, [facility] [address] [id number] [address] [place] [address], [place] [id number] May, [facility] [address] [id number] [address] [place] [address], [place] [id number] May, [facility] [address] [id number] [address] [place] [address], [place] [id number] May, [facility] [address] [id number] [address] [place] [address], [place] [id number] May, [facility] [address] [id number] [address] [place] [address], [place] [id number] May, [facility] [address] [id number] [address] [place] [address], [place] [id number] Apr, [facility] [address] [id number] [address] [place] [address], [place] [address] Apr, [facility] [address] [id number] [address] [place] [address], [place] [id number] Apr, [facility] [address] [id number] [address] [place] [address], [place] [id number] Apr, [facility] [address] [id number] [address] [place] [address], [place] [id number] Apr, [facility] [address] [id number] [address] [place] [address], [place] [id number] Apr, [facility] [address] [id number] [address] [place] [address], [place] [id number] Mar, [facility] [address] [id number] [address] [place] [address], [place] [address] Mar, [facility] [address] [id number] [address] [place] [address], [place] [address] Mar, [facility] [address] [id number] [address] [place] [address], [place] [address] Mar, [facility] [address] [id number] [address] [place] [address], [place] [address] Mar, [facility] [address] [id number] [address] [place] [address], [place] [address] Mar, [facility] [address] [id number] [address] [place] [id number] 16 Mar, 2013 [facility] [address] [id number] [address] [place] [address], [place] [id number] 16 Mar, 2013 [facility] [address] [id number] [address] [place] [id number] Mar, [facility] [address] [id number] [address] [place] [id number] Mar, [facility] [address] [id number] [address] [place] [id number] Feb, [facility] [address] [id number] [address] [place] [address], [place] [address] Feb, [facility] [address] [id number] [address] [place] [address], [place] [address] Feb, [facility] [address] [id number] [address] [place] [id number] Feb, [facility] [address] [id number] [address] [place] [address], [place] [address] Feb, [facility] [address] [id number] [address] [place] [id number] Feb, [facility] [address] [id number] [address] [place] [address], [place] [address] Feb, [facility] [address] [id number] [address] [place] [id number] Feb, [facility] [address] [id number] [address] [place] [id number] Feb, [facility] [address] [id number] [address] [place] [id number] Feb, [facility] [address] [id number] [address] [place] [id number] Jan, [facility] [address] [id number] [address] [place] [id number] Jan, [facility] [address] [id number] [address] [place] [address], [place] [address] Jan, [facility] [address] [id number] [address] [place] [address], [place] [address] Jan, [facility] [address] [id number] [address] [place] [address], [place] [address] Jan, [facility] [address] [id number] [address] [place] [address], [place] [address] Jan, [facility] [address] [id number] [address] [place] [address], [place] [id number] 17 Jan, 2013 [facility] [address] [id number] [address] [place] [address], [place] [address] Jan, [facility] [address] [id number] [address] [place] [address], [place] [address] Jan, [facility] [address] [id number] [address] [place] [address], [place] [id number] 25 Dec, 2012 [facility] [address] [id number] [address] [place] [address], [place] [id number] 23 Dec, 2012 [facility] [address] [id number] [address] [place] [address], [place] [id number] 21 Dec, 2012 [facility] [address] [id number] [address] [place] [address], [place] [id number] 13 Dec, 2012 [facility] [address] [id number] [address] [place] [address], [place] [address] Nov, [facility] [address] [id number] [address] [place] [address], [place] [id number] Nov, [facility] [address] [id number] [address] [place] [address], [place] [address] Nov, [facility] [address] [id number] [address] [place] [address], [place] [address] Nov, [facility] [address] [id number] [address] [place] [address], [place] [address] Nov, [facility] [address] [id number] [address] [place] [address], [place] [address] Nov, [facility] [address] [id number] [address] [place] [address], [place] [address] Oct, [facility] [address] [id number] [address] [place] [address], [place] [address] Oct, [facility] [address] [id number] [address] [place] [address], [place] [address] Oct, [facility] [address] [id number] [address] [place] [address], [place] [address] Oct, [facility] [address] [id number] [address] [place] [address], [place] [address] Sep, [facility] [address] [id number] [address] [place] [address], [place] [address] Sep, [facility] [address] [id number] [address] [place] [address], [place] [address] Sep, [facility] [address] [id number] [address] [place] [address], [place] [address] Sep, [facility] [address] [id number] [address] [place] [address], [place] [address] Sep, [facility] [address] [id number] [address] [place] [address], [place] [address] August, [facility] [address] [id number] [address] [place] [address], [place] [address] 2012 [facility] [address] [id number] [address] [place] [address], [place] [address] Jul, [facility] [address] [id number] [address] [place] [address], [place] [address] Jul, [facility] [address] [id number] [address] [place] [address], [place] [id number] 15 Jul, 2012 [facility] [address] [id number] [address] [place] [address] [place] [id number] 09 Jul, 2012 [facility] [address] [id number] [address] [place] [address], [place] [address] 08 Jul, 2012 [facility] [address] [id number] [address] [place] [address], [place] [address] 26 Jun, 2012 [facility] [address] [id number] [address] [place] [address], [place] [address] 20 Jun, 2012 [facility] [address] [id number] [address] [place] [address], [place] [address] 15 Jun, 2012 [facility] [address] [id number] [address] [place] [address], [place] [id number] 06 Jun, 2012 [facility] [address] [id number] [address] [place] [address], [place] [address] Jun, [facility] [address] [id number] [address] [place] [address], [place] [id number] 28 May, 2012 [facility] [address] [id number] [address] [place] [address], [place] [id number] 27 May, 2012 [facility] [address] [id number] [address] [place] [address], [place] [address] 25 May, 2012 [facility] [address] [id number] [address] [place] [address], [place] [address] May, [facility] [address] [id number] [address] [place] [address], [place] [id number] 20 May, 2012 [facility] [address] [id number] [address] [place] [address], [place] [address] 14 May, 2012 [facility] [address] [id number] [address] [place] [address], [place] [address] 13 May, 2012 [facility] [address] [id number] [address] [place] [address], [place] [id number] 08 May, 2012 [facility] [address] [id number] [address] [place] [address], [place] [address] May, [facility] [address] [id number] [address] [place] [address], [place] [address] Apr, [facility] [address] [id number] [address] [place] [address], [place] [address] Apr, [facility] [address] [id number] [address] [place] [address], [place] [address] Apr, [facility] [address] [id number] [address] [place] [address], [place] [address] Apr, [facility] [address] [id number] [address] [place] [address], [place] [address] Apr, [facility] [address] [id number] [address] [place] [address], [place] [address] Mar, [facility] [address] [id number] [address] [place] [address], [place] [address] Mar, [facility] [address] [id number] [address] [place] [address], [place] [address] Mar, [facility] [address] [id number] [address] [place] [address], [place] [address] Mar, [facility] [address] [id number] [address] [place] [address], [place] [address] Mar, [facility] [address] [id number] [address] [place] [address], [place] [address] Mar, [facility] [address] [id number] [address] [place] [address], [place] [address] Mar, [facility] [address] [id number] [address] [place] [address], [place] [address] Mar, [facility] [address] [id number] [address] [place] [address], [place] [address] Mar, [facility] [address] [id number] [address] [place] [address], [place] [address] Mar, [facility] [address] [id number] [address] [place] [address], [place] [address] 30 Feb, 2012 [facility] [address] [id number] [address] [place] [address], [place] [id number] 30 Feb, 2012 [facility] [address] [id number] [address] [place] [address], [place] [address] Feb, [facility] [address] [id number] [address] [place] [address], [place] [address] Feb, [facility] [address] [id number] [address] [place] [address], [place] [address] Feb, [facility] [address] [id number] [address] [place] [address], [place] [address] Feb, [facility] [address] [id number] [address] [place] [address], [place] [address] Feb, [facility] [address] [id number] [address] [place] [address], [place] [address] Feb, [facility] [address] [id number] [address] [place] [address], [place] [address] Feb, [facility] [address] [id number] [address] [place] [address], [place] [address] 16 Feb, 2012 [facility] [address] [id number] [address] [place] [address], [place] [address] Feb, [facility] [address] [id number] [address] [place] [address], [place] [address] Feb, [facility] [address] [id number] [address] [place] [address], [place] [address] Feb, [facility] [address] [id number] [address] [place] [address], [place] [address] Feb, [facility] [address] [id number] [address] [place] [address], [place] [address] Feb, [facility] [address] [id number] [address] [place] [address], [place] [address] 08 Feb, 2012 [facility] [address] [id number] [address] [place] [address], [place] [id number] 07 Feb, 2012 [facility] [address] [id number] [address] [place] [address], [place] [address] Feb, [facility] [address] [id number] [address] [place] [address], [place] [address] Jan, [facility] [address] [id number] [address] [place] [address], [place] [address] Jan, [facility] [address] [id number] [address] [place] [address], [place] [address] Jan, [facility] [address] [id number] [address] [place] [address], [place] [address] Jan, [facility] [address] [id number] [address] [place] [address], [place] [address] Jan, [facility] [address] [id number] [address] [place] [address], [place] [address] Jan, [facility] [address] [id number] [address] [place] [address], [place] [address] Jan, [facility] [address] [id number] [address] [place] [address], [place] [address] Jan, [facility] [address] [id number] [address] [place] [address], [place] [address] Jan, [facility] [address] [id number] [address] [place] [address], [place] [address] Jan, [facility] [address] [id number] [address] [place] [address], [place] [address] 24 Dec, 2011 [facility] [address] [id number] [address] [place] [address], [place] [address] 18 Dec, 2011 [facility] [address] [id number] [address] [place] [address], [place] [address] 04 Dec, 2011 [facility] [address] [id number] [address] [place] [address] Dec, [facility] [address] [id number] [address] [place] [address], [place] [address] Nov, [facility] [address] [id number] [address] [place] [address], [place] [address] Nov, [facility] [address] [id number] [address] [place] [address], [place] [address] Nov, [facility] [address] [id number] [address] [place] [address], [place] [address] Nov, [facility] [address] [id number] [address] [place] [address], [place] [address] Nov, [facility] [address] [id number] [address] [place] [address], [place] [address] Nov, [facility] [address] [id number] [address] [place] [address], [place] [address] Oct, [facility] [address] [id number] [address] [place] [address], [place] [address] Oct, [facility] [address] [id number] [address] [place] [address], [place] [address] Oct, [facility] [address] [id number] [address] [place] [address], [place] [address] Oct, [facility] [address] [id number] [address] [place] [address], [place] [address] Oct, [facility] [address] [id number] [address] [place] [address], [place] [address] Sep, [facility] [address] [id number] [address] [place] [address], [place] [address] Sep, [facility] [address] [id number] [address] [place] [address], [place] [address] Sep, [facility] [address] [id number] [address] [place] [address], [place] [address] Sep, [facility] [address] [id number] [address] [place] [address], [place] [id number] 05 Sep, 2011 [facility] [address] [id number] [address] [place] [address], [place] [address] August, [facility] [address] [id number] [address] [place] [address], [place] [address] August, [facility] [address] [id number] [address] [place] [address], [place] [address] August, [facility] [address] [id number] [address] [place] [address], [place] [address] August, [facility] [address] [id number] [address] [place] [address], [place] [address] Jul, [facility] [address] [id number] [address] [place] [address], [place] [address] Jul, [facility] [address] [id number] [address] [place] [address], [place] [address] Jul, [facility] [address] [id number] [address] [place] [address], [place] [address] Jul, [facility] [address] [id number] [address] [place] [address], [place] [address] Jul, [facility] [address] [id number] [address] [place] [address], [place] [address] Jul, [facility] [address] [id number] [address] [place] [address], [place] [address] 11 Jul, 2011 [facility] [address] [id number] [address] [place] [address], [place] [id number] 10 Jul, 2011 [facility] [address] [id number] [address] [place] [address], [place] [address] 09 Jul, 2011 [facility] [address] [id number] [address] [place] [address], [place] [address] 07 Jul, 2011 [facility] [address] [id number] [address] [place] [address], [place] [address] 05 Jul, 2011 [facility] [address] [id number] [address] [place] [address], [place] [address] Jul, [facility] [address] [id number] [address] [place] [address], [place] [address] Jul, [facility] [address] [id number] [address] [place] [address], [place] [address] Jul, [facility] [address] [id number] [address] [place] [address], [place] [address] 28 Jun, 2011 [facility] [address] [id number] [address] [place] [address], [place] [address] 27 Jun, 2011 [facility] [address] [id number] [address] [place] [address], [place] [id number] 20 Jun, 2011 [facility] [address] [id number] [address] [place] [address], [place] [address] Jun, [facility] [address] [id number] [address] [place] [address], [place] [id number] May, [facility] [address] [id number] [address] [place] [address], [place] [id number] May, [facility] [address] [id number] [address] [place] [address], [place] [id number] May, [facility] [address] [id number] [address] [place] [address], [place] [id number] Apr, [facility] [address] [id number] [address] [place] [address], [place] [id number] 18 Apr, 2011 [facility] [address] [id number] [address] [place] [address], [place] [id number] Apr, [facility] [address] [id number] [address] [place] [address], [place] [id number] Apr, [facility] [address] [id number] [address] [place] [address], [place] [id number] Apr, [facility] [address] [id number] [address] [place] [address], [place] [id number] 27 Mar, 2011 [facility] [address] [id number] [address] [place] [address], [place] [id number] Mar, [facility] [address] [id number] [address] [place] [address], [place] [id number] Mar, [facility] [address] [id number] [address] [place] [address], [place] [id number] Mar, [facility] [address] [id number] [address] [place] [address], [place] [id number] 16 Mar, 2011 [facility] [address] [id number] [address] [place] [address], [place] [id number] Mar, [facility] [address] [id number] [address] [place] [address], [place] [id number] 05 Mar, 2011 [facility] [address] [id number] [address] [place] [address], [place] [id number] 29 Feb, 2011 [facility] [address] [id number] [address] [place] [address], [place] [id number] Feb, [facility] [address] [id number] [address] [place] [address], [place] [id number] Feb, [facility] [address] [id number] [address] [place] [address], [place] [id number] Feb, [facility] [address] [id number] [address] [place] [address], [place] [id number] 16 Feb, 2011 [facility] [address] [id number] [address] [place] [address], [place] [id number] 14 Feb, 2011 [facility] [address] [id number] [address] [place] [address], [place] [id number] 10 Feb, 2011 [facility] [address] [id number] [address] [place] [address], [place] [id number] 31 Jan, 2011 [facility] [address] [id number] [address] [place] [address], [place] [id number] 31 Jan, 2011 [facility] [address] [id number] [address] [place] [address], [place] [id number] 31 Jan, 2011 [facility] [address] [id number] [address] [place] [address], [place] [id number] 18 Jan, 2011 [facility] [address] [id number] [address] [place] [address], [place] [id number] 17 Jan, 2011 [facility] [address] [id number] [address] [place] [address], [place] [id number] 17 Jan, 2011 [facility] [address] [id number] [address] [place] [address], [place] [id number] 17 Jun, 2010 [facility] [address] [id number] [address] [place] [address], [place] [id number] 30 Mar, 2010 [facility] [address] [id number] [address] [place] [address], [place] [id number] 20 Mar, 2010 [facility] [address] [id number] [address] [place] [address], [place] [id number] 14 Mar, 2010 [facility] [address] [id number] [address] [place] [address], [place] [id number] 14 Mar, 2010 [facility] [address] [id number] [address] [place] [address], [place] [id number] 13 Mar, 2010 [facility] [address] [id number] [address] [place] [address], [place] [id number] 07 Mar, 2010 [facility] [address] [id number] [address] [place] [address], [place] [id number] 02 Mar, 2010 [facility] [address] [id number] [address] [place] [address], [place] [id number] Mar, [facility] [address] [id number] [address] [place] [address], [place] [id number] 30 Feb, 2010 [facility] [address] [id number] [address] [place] [address], [place] [id number] 29 Feb, 2010 [facility] [address] [id number] [address] [place] [address], [place] [id number] 17 Feb, 2010 [facility] [address] [id number] [address] [place] [address], [place] [id number] 17 Feb, 2010 [facility] [address] [id number] [address] [place] [address], [place] [id number] 16 Feb, 2010 [facility] [address] [id number] [address] [place] [address], [place] [id number] 08 Feb, 2010 [facility] [address] [id number] [address] [place] [address], [place] [id number] 04 Feb, 2010 [facility] [address] [id number] [address] [place] [address], [place] [id number] Feb, [facility] [address] [id number] [address] [place] [address], [place] [id number] Jan, [facility] [address] [id number] [address] [place] [address], [place] [id number] Jan, [facility] [address] [id number] [address] [place] [address], [place] [id number] Jan, [facility] [address] [id number] [address] [place] [address], [place] [id number] Jan, [facility] [address] [id number] [address] [place] [id number] 29 Mar, 2009 [facility] [address] [id number] [address] [place] [id number] 22 Mar, 2009 [facility] [address] [id number] [address] [place] [id number] 19 Mar, 2009 [facility] [address] [id number] [address] [place] [address], [place] [id number] 19 Mar, 2009 [facility] [address] [id number] [address] [place] [id number] 14 Mar, 2009 [facility] [address] [id number] [address] [place] [id number] 10 Mar, 2009 [facility] [address] [id number] [address] [place] [id number] Feb, [facility] [address] [facility] [id number] [address] [place] [id number] Feb, [facility] [address] [facility] [id number] [address] [place] [id number] Jan, [facility] [address] [facility] [id number] [address] [place] [id number] Sep, [facility] [address] [facility] [id number] [address] [place] [id number] May, IMMUNIZATIONS No Known Immunizations SOCIAL HISTORY [...] Surgical History Left ear surgery Hospitalization History [facility] [place]- Spontane ous Pneumothorax Hospitalization History [facility]- Colon resection [facility] - diarrhea/ couldnt urin ate nov 2017 Hospitalization History pain /hip to foot right side 10/16/19 19
--- OUTSIDE RECORDS SUMMARY | 2019-08-28 08:51 | XMS REPORT ---
Author Author Dixon Lundberg Doctor Organization [facility] Address Unknown Phone Unavailable Care Team Providers [employer] Assistant Name Role Phone Migration, Doctor Unavailable Unavailable PROBLEMS Type Condition ICD9-CM Code GRC61-NA Code Onset Dates Condition S tatus SNOMED Code Problem Insomnia G47.00 Active 474176384 Problem Anxiety F41.9 Active 75483320 Problem HTN (hypertension) I10 Active 3 9060134 Problem Chronic pain G89.29 Active 8936327 1 Problem Constipation K59.00 Active 1896763 8 Problem Thoracic back pain, unspecif ied back pain laterality, unspecified chronicity M54.6 Active 622205429 Problem Hyperlipidemia E78.5 Active 41437 004 Problem Vitamin D deficiency E55.9 Active 32399030 Problem Chronic kidney disease, stage III (moderate) N18.3 Active 531172028 Problem Vision loss H54.7 Active 42537418 1 Problem Age-related cataract of both eyes, unspecified age-related cataract type H25.9 Active 52800048 Problem Primary insomnia F51.01 Active 397 2004 Problem Psychophysiologic insomnia F51.04 Act saúl 367491787 Problem Environmental allergies Z91.09 Active 863122577 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 23194676 Problem Schizophrenia, unspecified type F20.9 Active 93044529 Problem Psychophysiological insomnia F51.04 A ctive 827178439 Problem Psychophysiological insomnia F51.04 A ctive [id number] ALLERGIES No Information ENCOUNTERS Encounter Location Date Diagnosis [facility] [address] [facility] [id number] [address] [place] [id number] Jul, Anxiety F41.9 and Thoracic b ack pain, unspecified back pain laterality, unspecified chronicity M54.6 [facility] [address] [facility] [id number] [address] [place] [id number] Jun, [facility] [address] [facility] [id number] [address] [place] [id number] Jun, Thoracic back pain, unspecif ied back pain laterality, unspecified chronicity M54.6 [facility] [address] [id number] [address] [place] [id number] 09 Jun, 2019 [facility] [address] [id number] [address] [place] [id number] 04 Jun, 2019 Anxiety F41.9 and Thoracic b ack pain, unspecified back pain laterality, unspecified chronicity M54.6 [facility] [address] [id number] [address] [place] [id number] 04 Jun, 2019 [facility] [address] [id number] [address] [place] [id number] May, [facility] [address] [id number] [address] [place] [id number] May, Psychophysiologic insomnia F 51.04 [facility] [address] [id number] [address] [place] [id number] May, Other constipation K59.09 [facility] [address] [id number] [address] [place] [id number] 11 May, 2019 Thoracic back pain, unspecif ied back pain laterality, unspecified chronicity M54.6 [facility] [address] [id number] [address] [place] [id number] 06 May, 2019 Anxiety F41.9 and Thoracic b ack pain, unspecified back pain laterality, unspecified chronicity M54.6 [facility] [address] [id number] [address] [place] [id number] May, [facility] [address] [id number] [address] [place] [id number] Apr, [facility] [address] [id number] [address] [place] [id number] Apr, [facility] [address] [id number] [address] [place] [id number] Apr, Psychophysiological insomnia F51.04 [place] [address] [facility] [id number] [address] [place] [id number] 15 Apr, 2019 Thoracic back pain, unspecif ied back pain laterality, unspecified chronicity M54.6 [place] [address] [facility] [id number] [address] [place] [id number] 10 Apr, 2019 Thoracic back pain, unspecif ied back pain laterality, unspecified chronicity M54.6 [place] [address] [facility] [id number] [address] [place] [id number] Apr, Anxiety F41.9 [place] [address] [facility] [id number] [address] [place] [id number] Apr, Psychophysiological insomnia F51.04 [place] [address] [facility] [id number] [address] [place] [id number] 30 Mar, 2019 Encounter for Medicare annua [...] both eyes, unspecified age-related cataract type H25.9 [place] [address] [facility] [id number] [address] [place] [id number] Mar, Thoracic back pain, unspecif ied back pain laterality, unspecified chronicity M54.6 [place] [address] [facility] [id number] [address] [place] [id number] Mar, Psychophysiological insomnia F51.04 [place] [address] [facility] [id number] [address] [place] [id number] Mar, Thoracic back pain, unspecif ied back pain laterality, unspecified chronicity M54.6 and Anxiety F41.9 [place] [address] [id number] [address] [place] [id number] Mar, Psychophysiological insomnia F51.04 [facility] [address] [id number] [address] [place] [id number] Mar, [facility] [address] [id number] [address] [place] [id number] Mar, Psychophysiological insomnia F51.04 [facility] [address] [id number] [address] [place] [id number] Mar, [facility] [address] [id number] [address] [place] [id number] Feb, [facility] [address] [id number] [address] [place] [id number] Feb, Thoracic back pain, unspecif ied back pain laterality, unspecified chronicity M54.6 [facility] [address] [facility] [id number] [address] [place] [id number] Feb, Anxiety F41.9 and Thoracic b ack pain, unspecified back pain laterality, unspecified chronicity M54.6 [facility] [address] [facility] [id number] [address] [place] [id number] Feb, Insomnia G47.00 ; HTN (hyper tension) I10 and Constipation K59.00 [facility] [address] [id number] [address] [place] [id number] Feb, [facility] [address] [facility] [id number] [address] [place] [id number] Jan, Thoracic back pain, unspecif ied back pain laterality, unspecified chronicity M54.6 [facility] [address] [facility] [id number] [address] [place] [id number] Jan, Anxiety F41.9 [facility] [address] [facility] [id number] [address] [place] [id number] Jan, Anxiety F41.9 [facility] [address] [id number] [address] [place] [id number] Jan, Anxiety F41.9 and Thoracic b ack pain, unspecified back pain laterality, unspecified chronicity M54.6 [facility] [address] [id number] [address] [place] [id number] Jan, [facility] [address] [id number] [address] [place] [id number] Jan, [facility] [address] [id number] [address] [place] [id number] Dec, Thoracic back pain, unspecif ied back pain laterality, unspecified chronicity M54.6 [facility] [address] [id number] [address] [place] [id number] Dec, Thoracic back pain, unspecif ied back pain laterality, unspecified chronicity M54.6 [facility] [address] [id number] [address] [place] [id number] Nov, Thoracic back pain, unspecif ied back pain laterality, unspecified chronicity M54.6 [facility] [address] [id number] [address] [place] [id number] Nov, Anxiety F41.9 and Thoracic b ack pain, unspecified back pain laterality, unspecified chronicity M54.6 [facility] [address] [id number] [address] [place] [id number] Nov, [facility] [address] [id number] [address] [place] [id number] Nov, [facility] [address] [id number] [address] [place] [id number] Nov, [facility] [address] [id number] [address] [place] [id number] Oct, Thoracic back pain, unspecif ied back pain laterality, unspecified chronicity M54.6 [facility] [address] [id number] [address] [place] [id number] Oct, Anxiety F41.9 and Thoracic b ack pain, unspecified back pain laterality, unspecified chronicity M54.6 [facility] [address] [id number] [address] [place] [id number] Oct, Schizophrenia, unspecified t ype F20.9 and Acute kidney injury N17.9 [facility] [address] [id number] [address] [place] [id number] Oct, [facility] [address] [id number] [address] [place] [id number] Oct, [facility] [address] [id number] [address] [place] [id number] Oct, Thoracic back pain, unspecif ied back pain laterality, unspecified chronicity M54.6 [facility] [address] [id number] [address] [place] [id number] Oct, [facility] [address] [id number] [address] [place] [id number] Oct, [facility] [address] [id number] [address] [place] [id number] Sep, Anxiety F41.9 [facility] [address] [id number] [address] [place] [id number] Sep, [facility] [address] [id number] [address] [place] [id number] Sep, Thoracic back pain, unspecif ied back pain laterality, unspecified chronicity M54.6 [facility] [address] [id number] [address] [place] [id number] Sep, [facility] [address] [id number] [address] [place] [id number] Sep, [facility] [address] [id number] [address] [place] [id number] Sep, [facility] [address] [id number] [address] [place] [id number] Sep, [facility] [address] [facility] [id number] [address] [place] [id number] Sep, [facility] [address] [facility] [id number] [address] [place] [id number] Sep, [facility] [address] [facility] [id number] [address] [place] [id number] Sep, Chronic pain G89.29 ; Chroni c kidney disease, stage III (moderate) N18.3 ; Hyperlipidemia E78.5 and Insomnia G47.00 [facility] [address] [facility] [id number] [address] [place] [id number] Sep, Thoracic back pain, unspecif ied back pain laterality, unspecified chronicity M54.6 [facility] [address] [facility] [id number] [address] [place] [id number] August, Anxiety F41.9 [facility] [address] [facility] [id number] [address] [place] [id number] August, Thoracic back pain, unspecif ied back pain laterality, unspecified chronicity M54.6 and Anxiety F41.9 [facility] [address] [facility] [id number] [address] [place] [id number] August, 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 [facility] [address] [facility] [id number] [address] [place] [id number] August, 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 [facility] [address] [facility] [id number] [address] [place] [id number] August, [facility] [address] [facility] [id number] [address] [place] [id number] August, [facility] [address] [facility] [id number] [address] [place] [id number] August, Thoracic back pain, unspecif ied back pain laterality, unspecified chronicity M54.6 [facility] [address] [facility] [id number] [address] [place] [id number] August, [facility] [address] [id number] [address] [place] [id number] August, Anxiety F41.9 and Thoracic b ack pain, unspecified back pain laterality, unspecified chronicity M54.6 [facility] [address] [id number] [address] [place] [id number] Jul, [facility] [address] [id number] [address] [place] [id number] Jul, Thoracic back pain, unspecif ied back pain laterality, unspecified chronicity M54.6 [facility] [address] [id number] [address] [place] [id number] Jun, Anxiety F41.9 and Thoracic b ack pain, unspecified back pain laterality, unspecified chronicity M54.6 [facility] [address] [id number] [address] [place] [id number] Jun, Anxiety F41.9 and Thoracic b ack pain, unspecified back pain laterality, unspecified chronicity M54.6 [facility] [address] [id number] [address] [place] [id number] Jun, Thoracic back pain, unspecif ied back pain laterality, unspecified chronicity M54.6 [facility] [address] [id number] [address] [place] [id number] Jun, Anxiety F41.9 and Thoracic b ack pain, unspecified back pain laterality, unspecified chronicity M54.6 [facility] [address] [id number] [address] [place] [id number] May, [facility] [address] [id number] [address] [place] [id number] May, [facility] [address] [id number] [address] [place] [id number] May, [facility] [address] [id number] [address] [place] [id number] 06 May, 2018 Anxiety F41.9 and Encounter for medication monitoring Z51.81 [place] [address] [facility] [id number] [address] [place] [id number] 05 May, 2018 Anxiety F41.9 and Thoracic b ack pain, unspecified back pain laterality, unspecified chronicity M54.6 [place] [address] [facility] [id number] [address] [place] [id number] Apr, Hyperlipidemia 272.4 [place] [address] [facility] [id number] [address] [place] [id number] Apr, Chronic pain G89.29 ; Anxiet y F41.9 ; Cervical radiculopathy M54.12 and Vision loss H54.7 [place] [address] [place] [id number] [address] [place] [id number] Apr, [place] [address] [place] [id number] [address] [place] [id number] Apr, Anxiety F41.9 and Thoracic b ack pain, unspecified back pain laterality, unspecified chronicity M54.6 [place] [address] [place] [id number] [address] [place] [id number] 17 Mar, 2018 [place] [address] [place] [id number] [address] [place] [id number] Mar, Anxiety F41.9 and Thoracic b ack pain, unspecified back pain laterality, unspecified chronicity M54.6 [place] [address] [place] [id number] [address] [place] [id number] 14 Feb, 2018 Anxiety F41.9 and Thoracic b ack pain, unspecified back pain laterality, unspecified chronicity M54.6 [place] [address] [place] [id number] [address] [place] [id number] 07 Feb, 2018 Thoracic back pain, unspecif ied back pain laterality, unspecified chronicity M54.6 [place] [address] [place] [id number] [address] [place] [id number] Jan, [facility] [address] [id number] [address] [place] [id number] Jan, Anxiety F41.9 and Thoracic b ack pain, unspecified back pain laterality, unspecified chronicity M54.6 [facility] [address] [id number] [address] [place] [id number] 19 Dec, 2017 Diarrhea of presumed infecti ous origin R19.7 [facility] [address] [id number] [address] [place] [id number] 19 Dec, 2017 Diarrhea of presumed infecti ous origin R19.7 [facility] [address] [id number] [address] [place] [id number] 18 Dec, 2017 Thoracic back pain, unspecif ied back pain laterality, unspecified chronicity M54.6 [facility] [address] [id number] [address] [place] [id number] 17 Dec, 2017 [facility] [address] [id number] [address] [place] [id number] 17 Dec, 2017 Anxiety F41.9 and Thoracic b ack pain, unspecified back pain laterality, unspecified chronicity M54.6 [facility] [address] [id number] [address] [place] [id number] 13 Dec, 2017 Diarrhea of presumed infecti ous origin R19.7 [facility] [address] [id number] [address] [place] [id number] Dec, [facility] [address] [id number] [address] [place] [id number] Dec, Anxiety F41.9 and Thoracic b ack pain, unspecified back pain laterality, unspecified chronicity M54.6 [facility] [address] [id number] [address] [place] [id number] Dec, Anxiety F41.9 and Thoracic b ack pain, unspecified back pain laterality, unspecified chronicity M54.6 [facility] [address] [id number] Dec, Diarrhea of presumed infectious origin R 19.7 ; Anxiety F41.9 ; Thoracic back pain, unspecified back pain laterality, unspecified chronicity M54.6 and HTN (hypertension) I10 [place] [id number] [place] [id number] Dec, Anxiety F41.9 [facility] [employer] [address] [place] [id number] Dec, Anxiety F41.9 ; Diarrhea of presumed inf ectious origin R19.7 ; Generalized abdominal pain R10.84 and Localized edema R60.0 [place] [address] [id number] Nov, [facility] [employer] [address] [place] [id number] Nov, Anxiety F41.9 ; Urinary retention R33.9 ; Diarrhea of presumed infectious origin R19.7 ; Weakness R53.1 ; Acute kidney failure, unspecified N17.9 ; Chronic kidney disease, stage III (moderate) N18.3 and Thoracic back pain, unspecified back pain laterality, unspecified chronicity M54.6 [place] [address] [id number] Oct, Thoracic back pain, unspecif ied back pain laterality, unspecified chronicity M54.6 and Anxiety F41.9 [place] [address] [place] [id number] [address] [place] [id number] Sep, Thoracic back pain, unspecif ied back pain laterality, unspecified chronicity M54.6 and Anxiety F41.9 [place] [address] [place] [id number] [address] [place] [id number] Sep, Thoracic back pain, unspecif ied back pain laterality, unspecified chronicity M54.6 ; Anxiety F41.9 and Encounter for medication monitoring Z51.81 [place] [address] [place] [id number] [address] [place] [id number] August, [place] [address] [id number] [address] [place] [id number] August, Thoracic back pain, unspecif ied back pain laterality, unspecified chronicity M54.6 and Anxiety F41.9 [place] [id number] [facility] [id number] [address] [place] [id number] August, Hyperlipidemia E78.5 and HTN (hypertension) I10 [place] [address] [facility] [id number] [address] [place] [id number] August, [place] [address] [facility] [id number] [address] [place] [id number] August, Medicare welcome exam Z00.00 ; Chronic kidney failure N18.9 ; Anxiety F41.9 ; Chronic pain G89.29 ; Insomnia G47.00 ; Hyperlipidemia E78.5 ; HTN (hypertension) I10 and Thoracic back pain, unspecified back pain laterality, unspecified chronicity M54.6 [place] [address] [place] [id number] [address] [place] [id number] Jul, [place] [address] [facility] [id number] [address] [place] [id number] Jul, [place] [address] [place] [id number] [address] [place] [id number] Jul, [place] [address] [facility] [id number] [address] [place] [id number] Jul, Anxiety F41.9 [place] [address] [facility] [id number] [address] [place] [id number] Jul, Thoracic back pain, unspecif ied back pain laterality, unspecified chronicity M54.6 and Anxiety F41.9 [place] [address] [facility] [id number] [address] [place] [id number] Jun, Thoracic back pain, unspecif ied back pain laterality, unspecified chronicity M54.6 and Anxiety F41.9 [place] [address] [place] [id number] [address] [place] [id number] 12 May, 2017 Thoracic back pain, unspecif ied back pain laterality, unspecified chronicity M54.6 and Anxiety F41.9 [facility] [address] [id number] [address] [place] [id number] Apr, Thoracic back pain, unspecif ied back pain laterality, unspecified chronicity M54.6 and Anxiety F41.9 [place] [address] [id number] [address] [place] [id number] 19 Mar, 2017 [place] [address] [id number] [address] [place] [id number] 14 Mar, 2017 Thoracic back pain, unspecif ied back pain laterality, unspecified chronicity M54.6 and Anxiety F41.9 [place] [address] [facility] [id number] [address] [place] [id number] Mar, Thoracic back pain, unspecif ied back pain laterality, unspecified chronicity M54.6 ; HTN (hypertension) I10 ; Hyperlipidemia E78.5 and Anxiety F41.9 [place] [address] [facility] [id number] [address] [place] [id number] Feb, Thoracic back pain, unspecif ied back pain laterality, unspecified chronicity M54.6 and Anxiety F41.9 [place] [address] [facility] [id number] [address] [place] [id number] Nov, [place] [address] [facility] [id number] [address] [place] [id number] Oct, [place] [address] [id number] [address] [place] [id number] Oct, Thoracic back pain, unspecif ied back pain laterality, unspecified chronicity M54.6 [place] [address] [facility] [id number] [address] [place] [id number] Oct, HTN (hypertension) I10 ; Con stipation K59.00 ; Hyperlipidemia E78.5 ; Thoracic back pain, unspecified back pain laterality, unspecified chronicity M54.6 ; Chronic pain G89.29 ; Anxiety F41.9 ; Chronic kidney failure N18.9 ; Environmental allergies Z91.09 ; Vitamin D deficiency E55.9 and Primary insomnia F51.01 [facility] [address] [facility] [id number] [address] [place] [id number] Sep, Anxiety F41.9 [facility] [address] [facility] [id number] [address] [place] [id number] Sep, [facility] [address] [facility] [id number] [address] [place] [id number] August, Anxiety F41.9 [facility] [address] [facility] [id number] [address] [place] [id number] August, [facility] [address] [place] [id number] [address] [place] [id number] Jul, Anxiety F41.9 [facility] [address] [facility] [id number] [address] [place] [id number] Jul, [facility] [address] [facility] [id number] [address] [place] [id number] Jun, Anxiety F41.9 [facility] [address] [place] [id number] [address] [place] [phone] Jun, [facility] [facility] [address] [id number] [address] [place] [phone] May, [facility] [address] [facility] [id number] [address] [place] [id number] May, [facility] [address] [facility] [id number] [address] [place] [id number] May, [facility] [address] [facility] [id number] [address] [place] [id number] Apr, [facility] [address] [facility] [id number] [address] [place] [id number] Apr, [facility] [address] [facility] [id number] [address] [place] [id number] Apr, Anxiety F41.9 [facility] [address] [facility] [id number] [address] [place] [id number] Apr, Anxiety F41.9 [facility] [address] [id number] [address] [place] [id number] Apr, [facility] [address] [id number] [address] [place] [id number] Mar, HTN (hypertension) I10 ; Phillip mor R25.1 ; Hypercholesterolemia E78.0 ; Constipation K59.00 ; Chronic pain G89.29 ; Hyperlipidemia E78.5 ; Insomnia G47.00 ; Anxiety F41.9 and Thoracic back pain, unspecified back pain laterality, unspecified chronicity M54.6 [facility] [address] [id number] [address] [place] [id number] Mar, Tremor R25.1 ; HTN (hyperten stas) I10 ; Hypercholesterolemia E78.0 ; Constipation K59.00 ; Chronic pain G89.29 ; Hyperlipidemia E78.5 ; Insomnia G47.00 ; Anxiety F41.9 and Thoracic back pain, unspecified back pain laterality, unspecified chronicity M54.6 [facility] [address] [id number] [address] [place] [id number] Mar, [facility] [address] [id number] [address] [place] [id number] Mar, [facility] [address] [id number] [address] [place] [id number] Feb, [facility] [address] [facility] [id number] [address] [place] [id number] Jan, [facility] [address] [id number] [address] [place] [id number] Jan, [facility] [address] [facility] [id number] [address] [place] [id number] 15 Dec, 2015 [facility] [address] [id number] [address] [place] [id number] Nov, [facility] [address] [id number] [address] [place] [phone] Nov, [facility] [address] [facility] [id number] [address] [place] [id number] Oct, Anxiety F41.9 [facility] [address] [facility] [id number] [address] [place] [phone] Oct, Chronic pain G89.29 [facility] [address] [id number] [address] [place] [phone] Sep, [facility] [address] [facility] [id number] [address] [place] [phone] Sep, [facility] [address] [facility] [id number] [address] [place] [id number] Sep, [facility] [address] [facility] [id number] [address] [place] [phone] Sep, [facility] [address] [facility] [id number] [address] [place] [id number] Sep, Chronic pain syndrome G89.4 [facility] [address] [facility] [id number] [address] [place] [id number] Sep, HTN (hypertension) I10 ; Chr onic pain G89.29 ; Hypercholesterolemia E78.0 ; Chronic kidney failure N18.9 ; Constipation, unspecified constipation type K59.00 ; Anxiety F41.9 and Thoracic back pain, unspecified back pain laterality, unspecified chronicity M54.6 [facility] [address] [facility] [id number] [address] [place] [id number] August, Chronic pain syndrome G89.4 [facility] [address] [facility] [id number] [address] [place] [id number] August, Chronic pain syndrome G89.4 [facility] [address] [facility] [id number] [address] [place] [id number] 28 Apr, 2016 Anxiety disorder, unspecifie d F41.9 and Chronic pain syndrome G89.4 [facility] [address] [facility] [id number] [address] [place] [id number] Jul, Insomnia, unspecified G47.00 and Chronic pain syndrome G89.4 [facility] [address] [facility] [id number] [address] [place] [phone] Jul, Allergic rhinitis J30.9 [facility] [address] [facility] [id number] [address] [place] [id number] Jul, Constipation, unspecified K5 9.00 [facility] [address] [facility] [id number] [address] [place] [id number] Jul, [facility] [address] [id number] [address] [place] [id number] Jun, [facility] [address] [id number] [address] [place] [id number] Jun, [facility] [address] [id number] [address] [place] [phone] Jun, [facility] [address] [id number] [address] [place] [phone] Jun, [facility] [address] [id number] [address] [place] [phone] Jun, [facility] [address] [id number] [address] [place] [phone] Jun, [facility] [address] [id number] [address] [place] [phone] May, [facility] [address] [facility] [id number] [address] [place] [id number] May, [facility] [address] [id number] [address] [place] [id number] May, Anxiety F41.9 ; Insomnia G47 .00 ; Hyperlipidemia E78.5 ; Chronic pain G89.29 ; HTN (hypertension) I10 ; Environmental allergies V15.09 and Constipation 564.00 [facility] [address] [facility] [id number] [address] [place] [id number] Apr, [facility] [address] [facility] [id number] [address] [place] [id number] Apr, [facility] [address] [id number] [address] [place] [phone] Apr, [facility] [address] [id number] [address] [place] [id number] Mar, [facility] [address] [id number] [address] [place] [id number] Mar, [facility] [address] [id number] [address] [place] [id number] Mar, [facility] [id number] [place] [phone] Feb, [facility] [address] [id number] [address] [place] [id number] Feb, [facility] [address] [id number] Feb, [facility] [address] [id number] Jan, HTN (hypertension) I10 ; Con stipation K59.00 ; Chronic pain G89.29 ; Hyperlipidemia E78.5 ; Hypercholesterolemia E78.0 ; Insomnia G47.00 and Anxiety F41.9 [facility] [address] [facility] [id number] [address] [place] [id number] Jan, [facility] [id number] [place] [phone] Dec, [facility] [address] [id number] [address] [place] [id number] Nov, [facility] [id number] [place] [address] Oct, Chronic kidney disease, unsp ecified 585.9 ; Chronic pain syndrome 338.4 ; Hyperlipidemia 272.4 and Essential hypertension 401.9 [facility] [address] [facility] [id number] [address] [place] [id number] Oct, Chronic kidney disease 585.9 [facility] [address] [facility] [id number] [address] [place] [id number] Oct, [facility] [address] [facility] [id number] [address] [place] [id number] Oct, Chronic kidney disease, unsp ecified 585.9 ; Hypercalcemia 275.42 ; Hyperlipidemia 272.4 ; Essential hypertension 401.9 ; Chronic pain syndrome 338.4 ; Insomnia 780.52 ; Constipation 564.00 ; Environmental allergies V15.09 and Anxiety 300.00 [facility] [address] [id number] [address] [place] [id number] Oct, Chronic kidney disease 585.9 [facility] [address] [facility] [id number] [address] [place] [id number] Oct, [facility] [address] [facility] [id number] [address] [place] [phone] Oct, Chronic kidney disease 585.9 and Hyperlipidemia 272.4 [facility] [address] [facility] [id number] [address] [place] [phone] Oct, [facility] [address] [facility] [id number] [address] [place] [phone] Oct, [facility] [address] [facility] [id number] [address] [place] [phone] 18 Sep, 2014 [facility] [address] [facility] [id number] [address] [place] [id number] Sep, [facility] [address] [facility] [id number] [address] [place] [id number] Sep, Chronic kidney disease 585.9 and Hyperlipidemia 272.4 [facility] [address] [facility] [id number] [address] [place] [phone] Sep, [facility] [address] [id number] [address] [place] [address], [place] [address] August, [facility] [address] [id number] [address] [place] [address], [place] [address] August, [facility] [address] [id number] [address] [place] [address], [place] [address] Jul, [facility] [address] [id number] [address] [place] [address], [place] [address] Jul, [facility] [address] [id number] [address] [place] [address], [place] [address] Jun, [facility] [address] [id number] [address] [place] [address], [place] [address] Jun, [facility] [address] [id number] [address] [place] [address], [place] [address] Jun, [facility] [address] [id number] [address] [place] [address], [place] [address] Jun, [facility] [address] [id number] [address] [place] [address], [place] [address] Jun, [facility] [address] [id number] [address] [place] [address], [place] [address] Jun, [facility] [address] [id number] [address] [place] [address], [place] [address] Jun, [facility] [address] [id number] [address] [place] [id number] Jun, [facility] [address] [id number] [address] [place] [address], [place] [address] May, [facility] [address] [id number] [address] [place] [address], [place] [address] May, [facility] [address] [id number] [address] [place] [address], [place] [address] May, [facility] [address] [id number] [address] [place] [address], [place] [address] May, [facility] [address] [id number] [address] [place] [address], [place] [address] Apr, [facility] [address] [id number] [address] [place] [address], [place] [address] Apr, [facility] [address] [id number] [address] [place] [address], [place] [address] Apr, [facility] [address] [id number] [address] [place] [address], [place] [address] Apr, [facility] [address] [id number] [address] [place] [address], [place] [address] Apr, [facility] [address] [id number] [address] [place] [address], [place] [address] Apr, [facility] [address] [id number] [address] [place] [address], [place] [address] Apr, [facility] [address] [id number] [address] [place] [address], [place] [address] Apr, [facility] [address] [id number] [address] [place] [address], [place] [address] Apr, [facility] [address] [id number] [address] [place] [address], [place] [address] Apr, [facility] [address] [id number] [address] [place] [address], [place] [address] Apr, [facility] [address] [id number] [address] [place] [address], [place] [address] Mar, [facility] [address] [id number] [address] [place] [address], [place] [address] Mar, [facility] [address] [id number] [address] [place] [address], [place] [address] Feb, [facility] [address] [id number] [address] [place] [address], [place] [address] Feb, [facility] [address] [id number] [address] [place] [address], [place] [address] Feb, [facility] [address] [id number] [address] [place] [address], [place] [address] Feb, [facility] [address] [id number] [address] [place] [address], [place] [address] Feb, [facility] [address] [id number] [address] [place] [address], [place] [address] Feb, [facility] [address] [id number] [address] [place] [address], [place] [address] Feb, [facility] [address] [id number] [address] [place] [address], [place] [address] Feb, [facility] [address] [id number] [address] [place] [address], [place] [address] Feb, [facility] [address] [id number] [address] [place] [address], [place] [address] Feb, [facility] [address] [id number] [address] [place] [address], [place] [address] Jan, [facility] [address] [id number] [address] [place] [address], [place] [address] Jan, [facility] [address] [id number] [address] [place] [address], [place] [address] Jan, [facility] [address] [id number] [address] [place] [id number] Jan, [facility] [address] [id number] [address] [place] [address], [place] [address] Jan, [facility] [address] [id number] [address] [place] [address], [place] [address] Jan, [facility] [address] [id number] [address] [place] [address], [place] [address] Jan, [facility] [address] [id number] [address] [place] [address], [place] [address] 17 Jan, 2014 [facility] [address] [id number] [address] [place] [address], [place] [address] 16 Jan, 2014 [facility] [address] [id number] [address] [place] [address], [place] [address] Jan, [facility] [address] [id number] [address] [place] [address], [place] [address] Jan, [facility] [address] [id number] [address] [place] [address], [place] [address] 26 Dec, 2013 [facility] [address] [id number] [address] [place] [address], [place] [address] 26 Dec, 2013 [facility] [address] [id number] [address] [place] [address], [place] [address] 19 Dec, 2013 [facility] [address] [id number] [address] [place] [address], [place] [address] 19 Dec, 2013 [facility] [address] [id number] [address] [place] [address], [place] [address] 18 Dec, 2013 [facility] [address] [id number] [address] [place] [address], [place] [address] 18 Dec, 2013 [facility] [address] [id number] [address] [place] [address], [place] [address] Dec, [facility] [address] [id number] [address] [place] [address], [place] [address] Dec, [facility] [address] [id number] [address] [place] [address], [place] [address] Nov, [facility] [address] [id number] [address] [place] [address], [place] [address] Nov, [facility] [address] [id number] [address] [place] [address], [place] [address] Nov, [facility] [address] [id number] [address] [place] [address], [place] [address] Nov, [facility] [address] [id number] [address] [place] [address], [place] [address] Nov, [facility] [address] [id number] [address] [place] [address], [place] [address] Nov, [facility] [address] [id number] [address] [place] [address], [place] [address] Nov, [facility] [address] [id number] [address] [place] [address], [place] [address] Nov, [facility] [address] [id number] [address] [place] [address], [place] [address] Oct, [facility] [address] [id number] [address] [place] [address], [place] [address] Oct, [facility] [address] [id number] [address] [place] [address], [place] [address] Oct, [facility] [address] [id number] [address] [place] [address], [place] [address] Oct, [facility] [address] [id number] [address] [place] [address], [place] [address] Sep, [facility] [address] [id number] [address] [place] [address], [place] [address] Sep, [facility] [address] [id number] [address] [place] [address], [place] [address] Sep, [facility] [address] [id number] [address] [place] [address], [place] [address] Sep, [facility] [address] [id number] [address] [place] [address], [place] [address] Sep, [facility] [address] [id number] [address] [place] [address], [place] [address] Sep, [facility] [address] [id number] [address] [place] [address], [place] [address] Sep, [facility] [address] [id number] [address] [place] [address], [place] [address] Sep, [facility] [address] [id number] [address] [place] [address], [place] [address] August, [facility] [address] [id number] [address] [place] [address], [place] [address] August, [facility] [address] [id number] [address] [place] [address], [place] [address] August, [facility] [address] [id number] [address] [place] [address], [place] [address] August, [facility] [address] [id number] [address] [place] [address], [place] [address] August, [facility] [address] [id number] [address] [place] [address], [place] [address] August, [facility] [address] [id number] [address] [place] [address], [place] [address] August, [facility] [address] [id number] [address] [place] [address], [place] [address] August, [facility] [address] [id number] [address] [place] [address], [place] [address] August, [facility] [address] [id number] [address] [place] [address], [place] [address] August, [facility] [address] [id number] [address] [place] [address], [place] [address] Jul, [facility] [address] [id number] [address] [place] [address], [place] [address] Jul, [facility] [address] [id number] [address] [place] [address], [place] [address] Jul, [facility] [address] [id number] [address] [place] [address], [place] [address] Jul, [facility] [address] [id number] [address] [place] [address], [place] [address] Jul, [facility] [address] [id number] [address] [place] [address], [place] [address] 18 Jul, 2013 [facility] [address] [id number] [address] [place] [address], [place] [address] Jul, [facility] [address] [id number] [address] [place] [address], [place] [address] Jul, [facility] [address] [id number] [address] [place] [address], [place] [address] Jun, [facility] [address] [id number] [address] [place] [address], [place] [address] Jun, [facility] [address] [id number] [address] [place] [address], [place] [address] Jun, [facility] [address] [id number] [address] [place] [address], [place] [address] Jun, [facility] [address] [id number] [address] [place] [address], [place] [address] Jun, [facility] [address] [id number] [address] [place] [address], [place] [address] Jun, [facility] [address] [id number] [address] [place] [address], [place] [address] May, [facility] [address] [id number] [address] [place] [address], [place] [address] May, [facility] [address] [id number] [address] [place] [address], [place] [address] May, [facility] [address] [id number] [address] [place] [address], [place] [address] May, [facility] [address] [id number] [address] [place] [address], [place] [address] May, [facility] [address] [id number] [address] [place] [address], [place] [address] May, [facility] [address] [id number] [address] [place] [address], [place] [address] May, [facility] [address] [id number] [address] [place] [address], [place] [address] Apr, [facility] [address] [id number] [address] [place] [address], [place] [address] Apr, [facility] [address] [id number] [address] [place] [address], [place] [address] Apr, [facility] [address] [id number] [address] [place] [address], [place] [address] Apr, [facility] [address] [id number] [address] [place] [address], [place] [address] Apr, [facility] [address] [id number] [address] [place] [address], [place] [address] Apr, [facility] [address] [id number] [address] [place] [address], [place] [address] Mar, [facility] [address] [id number] [address] [place] [address], [place] [address] 31 Mar, 2013 [facility] [address] [id number] [address] [place] [address], [place] [address] 23 Mar, 2013 [facility] [address] [id number] [address] [place] [address], [place] [address] 23 Mar, 2013 [facility] [address] [id number] [address] [place] [address], [place] [address] 19 Mar, 2013 [facility] [address] [address] [id number] [address] [place] [address], [place] [address] 19 Mar, 2013 [facility] [address] [id number] [address] [place] [address], [place] [address] 16 Mar, 2013 [facility] [address] [id number] [address] [place] [address], [place] [address] 16 Mar, 2013 [facility] [address] [id number] [address] [place] [address], [place] [address] 12 Mar, 2013 [facility] [address] [id number] [address] [place] [address], [place] [address] Mar, [facility] [address] [id number] [address] [place] [address], [place] [address] Feb, [facility] [address] [id number] [address] [place] [address], [place] [address] Feb, [facility] [address] [id number] [address] [place] [address], [place] [address] Feb, [facility] [address] [id number] [address] [place] [address], [place] [address] Feb, [facility] [address] [id number] [address] [place] [address], [place] [address] Feb, [facility] [address] [id number] [address] [place] [address], [place] [address] Feb, [facility] [address] [id number] [address] [place] [address], [place] [address] Feb, [facility] [address] [id number] [address] [place] [address], [place] [address] Feb, [facility] [address] [id number] [address] [place] [address], [place] [address] Feb, [facility] [address] [id number] [address] [place] [address], [place] [address] Feb, [facility] [address] [id number] [address] [place] [address], [place] [address] Jan, [facility] [address] [id number] [address] [place] [address], [place] [address] Jan, [facility] [address] [id number] [address] [place] [address], [place] [address] Jan, [facility] [address] [id number] [address] [place] [address], [place] [address] Jan, [facility] [address] [id number] [address] [place] [address], [place] [address] Jan, [facility] [address] [id number] [address] [place] [address], [place] [address] Jan, [facility] [address] [id number] [address] [place] [address], [place] [address] Jan, [facility] [address] [id number] [address] [place] [address], [place] [address] Jan, [facility] [address] [id number] [address] [place] [address], [place] [address] Jan, [facility] [address] [id number] [address] [place] [address], [place] [address] Dec, [facility] [address] [id number] [address] [place] [address], [place] [address] Dec, [facility] [address] [id number] [address] [place] [address], [place] [address] Dec, [facility] [address] [id number] [address] [place] [address], [place] [address] Dec, [facility] [address] [id number] [address] [place] [address], [place] [address] Nov, [facility] [address] [id number] [address] [place] [address], [place] [address] Nov, [facility] [address] [id number] [address] [place] [address], [place] [address] Nov, [facility] [address] [id number] [address] [place] [address], [place] [address] Nov, [facility] [address] [id number] [address] [place] [address], [place] [address] Nov, [facility] [address] [id number] [address] [place] [address], [place] [address] Nov, [facility] [address] [id number] [address] [place] [address], [place] [address] Oct, [facility] [address] [id number] [address] [place] [address] [place] [address] 20 Oct, 2012 [facility] [address] [id number] [address] [place] [address], [place] [address] Oct, [facility] [address] [id number] [address] [place] [address], [place] [address] 08 Oct, 2012 [facility] [address] [id number] [address] [place] [address], [place] [address] 27 Sep, 2012 [facility] [address] [id number] [address] [place] [address], [place] [address] Sep, [facility] [address] [id number] [address] [place] [address], [place] [address] Sep, [facility] [address] [id number] [address] [place] [address], [place] [address] 14 Sep, 2012 [facility] [address] [id number] [address] [place] [address], [place] [address] Sep, [facility] [address] [id number] [address] [place] [address], [place] [address] August, [facility] [address] [id number] [address] [place] [address], [place] [address] August, [facility] [address] [id number] [address] [place] [address], [place] [address] Jul, [facility] [address] [id number] [address] [place] [address], [place] [address] 19 Jul, 2012 [facility] [address] [id number] [address] [place] [address], [place] [address] 15 Jul, 2012 [facility] [address] [id number] [address] [place] [address], [place] [address] 09 Jul, 2012 [facility] [address] [id number] [address] [place] [address], [place] [address] 08 Jul, 2012 [facility] [address] [id number] [address] [place] [address], [place] [address] Jun, [facility] [address] [id number] [address] [place] [address], [place] [address] Jun, [facility] [address] [id number] [address] [place] [address], [place] [address] Jun, [facility] [address] [id number] [address] [place] [address], [place] [address] 06 Jun, 2012 [facility] [address] [id number] [address] [place] [address], [place] [address] Jun, [facility] [address] [id number] [address] [place] [address], [place] [address] May, [facility] [address] [id number] [address] [place] [address], [place] [address] May, [facility] [address] [id number] [address] [place] [address], [place] [address] May, [facility] [address] [id number] [address] [place] [address], [place] [address] May, [facility] [address] [id number] [address] [place] [address], [place] [address] May, [facility] [address] [id number] [address] [place] [address], [place] [address] May, [facility] [address] [id number] [address] [place] [address], [place] [address] May, [facility] [address] [id number] [address] [place] [address], [place] [address] May, [facility] [address] [id number] [address] [place] [address], [place] [address] May, [facility] [address] [id number] [address] [place] [address], [place] [address] Apr, [facility] [address] [id number] [address] [place] [address], [place] [address] Apr, [facility] [address] [id number] [address] [place] [address], [place] [address] Apr, [facility] [address] [id number] [address] [place] [address], [place] [address] Apr, [facility] [address] [id number] [address] [place] [address], [place] [address] Apr, [facility] [address] [id number] [address] [place] [address], [place] [address] Mar, [facility] [address] [id number] [address] [place] [address], [place] [address] Mar, [facility] [address] [id number] [address] [place] [address], [place] [address] Mar, [facility] [address] [id number] [address] [place] [address], [place] [address] Mar, [facility] [address] [id number] [address] [place] [address], [place] [address] Mar, [facility] [address] [id number] [address] [place] [address], [place] [address] Mar, [facility] [address] [id number] [address] [place] [address], [place] [address] Mar, [facility] [address] [id number] [address] [place] [address], [place] [address] Mar, [facility] [address] [id number] [address] [place] [address], [place] [address] Mar, [facility] [address] [id number] [address] [place] [address], [place] [address] Mar, [facility] [address] [id number] [address] [place] [address], [place] [address] 30 Feb, 2012 [facility] [address] [id number] [address] [place] [address], [place] [address] 30 Feb, 2012 [facility] [address] [id number] [address] [place] [address], [place] [address] 29 Feb, 2012 [facility] [address] [id number] [address] [place] [address], [place] [address] Feb, [facility] [address] [id number] [address] [place] [address], [place] [address] Feb, [facility] [address] [id number] [address] [place] [address], [place] [address] Feb, [facility] [address] [id number] [address] [place] [address], [place] [address] Feb, [facility] [address] [id number] [address] [place] [address], [place] [address] Feb, [facility] [address] [id number] [address] [place] [address], [place] [address] Feb, [facility] [address] [id number] [address] [place] [address], [place] [address] Feb, [facility] [address] [id number] [address] [place] [address], [place] [address] Feb, [facility] [address] [id number] [address] [place] [address], [place] [address] Feb, [facility] [address] [id number] [address] [place] [address], [place] [address] Feb, [facility] [address] [id number] [address] [place] [address], [place] [address] Feb, [facility] [address] [id number] [address] [place] [address], [place] [address] Feb, [facility] [address] [id number] [address] [place] [address], [place] [address] Feb, [facility] [address] [id number] [address] [place] [address], [place] [address] Feb, [facility] [address] [id number] [address] [place] [address], [place] [address] 07 Feb, 2012 [facility] [address] [id number] [address] [place] [address], [place] [address] Jan, [facility] [address] [id number] [address] [place] [address], [place] [address] Jan, [facility] [address] [id number] [address] [place] [address], [place] [address] Jan, [facility] [address] [id number] [address] [place] [address], [place] [address] Jan, [facility] [address] [id number] [address] [place] [address], [place] [address] Jan, [facility] [address] [id number] [address] [place] [address], [place] [address] Jan, [facility] [address] [id number] [address] [place] [address], [place] [address] Jan, [facility] [address] [id number] [address] [place] [address], [place] [address] Jan, [facility] [address] [id number] [address] [place] [address], [place] [address] Jan, [facility] [address] [id number] [address] [place] [address], [place] [address] Jan, [facility] [address] [id number] [address] [place] [address], [place] [address] 24 Dec, 2011 [facility] [address] [id number] [address] [place] [address], [place] [address] 18 Dec, 2011 [facility] [address] [id number] [address] [place] [address] Dec, [facility] [address] [id number] [address] [place] [address], [place] [address] Dec, [facility] [address] [id number] [address] [place] [address], [place] [address] Nov, [facility] [address] [id number] [address] [place] [address], [place] [address] Nov, [facility] [address] [id number] [address] [place] [address], [place] [address] Nov, [facility] [address] [id number] [address] [place] [address], [place] [address] Nov, [facility] [address] [id number] [address] [place] [address], [place] [address] Nov, [facility] [address] [id number] [address] [place] [address], [place] [address] Nov, [facility] [address] [id number] [address] [place] [address], [place] [address] Oct, [facility] [address] [id number] [address] [place] [address], [place] [address] Oct, [facility] [address] [id number] [address] [place] [address], [place] [address] Oct, [facility] [address] [id number] [address] [place] [address], [place] [address] Oct, [facility] [address] [id number] [address] [place] [address], [place] [address] Oct, [facility] [address] [id number] [address] [place] [address], [place] [address] Sep, [facility] [address] [id number] [address] [place] [address], [place] [address] Sep, [facility] [address] [id number] [address] [place] [address], [place] [address] Sep, [facility] [address] [id number] [address] [place] [address], [place] [address] Sep, [facility] [address] [id number] [address] [place] [address], [place] [address] Sep, [facility] [address] [id number] [address] [place] [address], [place] [address] August, [facility] [address] [id number] [address] [place] [address], [place] [address] August, [facility] [address] [id number] [address] [place] [address], [place] [address] August, [facility] [address] [id number] [address] [place] [address], [place] [address] August, [facility] [address] [id number] [address] [place] [address], [place] [address] Jul, [facility] [address] [id number] [address] [place] [address], [place] [address] Jul, [facility] [address] [id number] [address] [place] [address], [place] [address] Jul, [facility] [address] [id number] [address] [place] [address], [place] [address] Jul, [facility] [address] [id number] [address] [place] [address], [place] [address] Jul, [facility] [address] [id number] [address] [place] [address], [place] [address] Jul, [facility] [address] [id number] [address] [place] [address], [place] [address] Jul, [facility] [address] [id number] [address] [place] [address], [place] [address] Jul, [facility] [address] [id number] [address] [place] [address], [place] [address] Jul, [facility] [address] [id number] [address] [place] [address], [place] [address] Jul, [facility] [address] [id number] [address] [place] [address], [place] [address] 05 Jul, 2011 [facility] [address] [id number] [address] [place] [address], [place] [address] Jul, [facility] [address] [id number] [address] [place] [address], [place] [address] Jul, [facility] [address] [id number] [address] [place] [address], [place] [address] 02 Jul, 2011 [facility] [address] [id number] [address] [place] [address], [place] [address] Jun, [facility] [address] [id number] [address] [place] [address], [place] [address] 27 Jun, 2011 [facility] [address] [id number] [address] [place] [address], [place] [address] 20 Jun, 2011 [facility] [address] [id number] [address] [place] [address], [place] [address] 16 Jun, 2011 [facility] [address] [id number] [address] [place] [address], [place] [address] May, [facility] [address] [id number] [address] [place] [address], [place] [address] 16 May, 2011 [facility] [address] [id number] [address] [place] [address], [place] [address] May, [facility] [address] [id number] [address] [place] [address], [place] [address] Apr, [facility] [address] [id number] [address] [place] [address], [place] [address] 18 Apr, 2011 [facility] [address] [id number] [address] [place] [address], [place] [address] 13 Apr, 2011 [facility] [address] [id number] [address] [place] [address], [place] [address] Apr, [facility] [address] [id number] [address] [place] [address], [place] [address] Apr, [facility] [address] [id number] [address] [place] [address], [place] [address] Mar, [facility] [address] [id number] [address] [place] [address], [place] [address] Mar, [facility] [address] [id number] [address] [place] [address], [place] [address] Mar, [facility] [address] [id number] [address] [place] [address], [place] [address] 20 Mar, 2011 [facility] [address] [id number] [address] [place] [address], [place] [address] 16 Mar, 2011 [facility] [address] [id number] [address] [place] [address], [place] [address] 09 Mar, 2011 [facility] [address] [id number] [address] [place] [address], [place] [address] 05 Mar, 2011 [facility] [address] [id number] [address] [place] [address], [place] [address] 29 Feb, 2011 [facility] [address] [id number] [address] [place] [address], [place] [address] 25 Feb, 2011 [facility] [address] [id number] [address] [place] [address], [place] [address] Feb, [facility] [address] [id number] [address] [place] [address], [place] [address] Feb, [facility] [address] [id number] [address] [place] [address], [place] [address] 16 Feb, 2011 [facility] [address] [id number] [address] [place] [address], [place] [address] 14 Feb, 2011 [facility] [address] [id number] [address] [place] [address], [place] [address] Feb, [facility] [address] [id number] [address] [place] [address], [place] [address] 31 Jan, 2011 [facility] [address] [id number] [address] [place] [address], [place] [address] 31 Jan, 2011 [facility] [address] [id number] [address] [place] [address], [place] [address] 31 Jan, 2011 [facility] [address] [id number] [address] [place] [address], [place] [address] 18 Jan, 2011 [facility] [address] [id number] [address] [place] [address], [place] [address] 17 Jan, 2011 [facility] [address] [id number] [address] [place] [address], [place] [address] 17 Jan, 2011 [facility] [address] [id number] [address] [place] [address], [place] [address] 17 Jun, 2010 [facility] [address] [id number] [address] [place] [address], [place] [address] 30 Mar, 2010 [facility] [address] [id number] [address] [place] [address], [place] [address] 20 Mar, 2010 [facility] [address] [id number] [address] [place] [address], [place] [address] 14 Mar, 2010 [facility] [address] [id number] [address] [place] [address], [place] [address] 14 Mar, 2010 [facility] [address] [id number] [address] [place] [address], [place] [address] 13 Mar, 2010 [facility] [address] [id number] [address] [place] [address], [place] [address] 07 Mar, 2010 [facility] [address] [id number] [address] [place] [address], [place] [address] 02 Mar, 2010 [facility] [address] [id number] [address] [place] [address], [place] [address] Mar, [facility] [address] [id number] [address] [place] [address], [place] [address] 30 Feb, 2010 [facility] [address] [id number] [address] [place] [address], [place] [address] 29 Feb, 2010 [facility] [address] [id number] [address] [place] [address], [place] [address] 17 Feb, 2010 [facility] [address] [id number] [address] [place] [address], [place] [address] 17 Feb, 2010 [facility] [address] [id number] [address] [place] [address], [place] [address] 16 Feb, 2010 [facility] [address] [id number] [address] [place] [address], [place] [address] 08 Feb, 2010 [facility] [address] [id number] [address] [place] [address], [place] [address] 04 Feb, 2010 [facility] [address] [id number] [address] [place] [address], [place] [address] Feb, [facility] [address] [id number] [address] [place] [address], [place] [address] 28 Jan, 2010 [facility] [address] [id number] [address] [place] [address], [place] [address] Jan, [facility] [address] [id number] [address] [place] [address], [place] [address] Jan, [facility] [address] [id number] [address] [place] [address], [place] [address] Jan, [facility] [address] [id number] [address] [place] [address], [place] [address] 29 Mar, 2009 [facility] [address] [id number] [address] [place] [address], [place] [address] 22 Mar, 2009 [facility] [address] [id number] [address] [place] [address], [place] [address] 19 Mar, 2009 [facility] [address] [id number] [address] [place] [address], [place] [address] 19 Mar, 2009 [facility] [address] [id number] [address] [place] [address], [place] [address] 14 Mar, 2009 [facility] [address] [id number] [address] [place] [address], [place] [id number] 10 Mar, 2009 [facility] [address] [id number] [address] [place] [address], [place] [id number] 18 Feb, 2009 [facility] [address] [id number] [address] [place] [address], [place] [id number] 18 Feb, 2009 [facility] [address] [id number] [address] [place] [address], [place] [id number] Jan, [facility] [address] [facility] [id number] [address] [place] [id number] Sep, [facility] [address] [facility] [id number] [address] [place] [id number] May, IMMUNIZATIONS No Known Immunizations SOCIAL HISTORY [...] Surgical History Left ear surgery Hospitalization History [facility] in [place]- Spontane ous Pneumothorax Hospitalization History [facility]- Colon resection [facility] History [facility] - diarrhea/ couldnt urin ate nov 2017 Hospitalization History pain /hip to foot right side 10/16/19 19
--- OUTSIDE RECORDS SUMMARY | 2019-08-28 08:51 | XMS REPORT ---
Author Author Dixon Lundberg Doctor Organization [facility] Address Unknown Phone Unavailable Care Team Providers Care Assembler 1St Shift Name Role Phone Migration, Doctor Unavailable Unavailable PROBLEMS Type Condition ICD9-CM Code DRN92-CQ Code Onset Dates Condition S tatus SNOMED Code Problem Insomnia G47.00 Active 729952827 Problem Anxiety F41.9 Active 36793691 Problem HTN (hypertension) I10 Active 3 3633375 Problem Chronic pain G89.29 Active 7557585 1 Problem Constipation K59.00 Active 5115827 8 Problem Thoracic back pain, unspecif ied back pain laterality, unspecified chronicity M54.6 Active 462282879 Problem Hyperlipidemia E78.5 Active 10952 004 Problem Vitamin D deficiency E55.9 Active 13930791 Problem Chronic kidney disease, stage III (moderate) N18.3 Active 131146753 Problem Vision loss H54.7 Active 53483891 1 Problem Age-related cataract of both eyes, unspecified age-related cataract type H25.9 Active 74443096 Problem Primary insomnia F51.01 Active 397 2004 Problem Psychophysiologic insomnia F51.04 Act saúl 354374088 Problem Environmental allergies Z91.09 Active 419488720 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 22598112 Problem Schizophrenia, unspecified type F20.9 Active 80623187 Problem Psychophysiological insomnia F51.04 A ctive 950180177 Problem Psychophysiological insomnia F51.04 A ctive [id number] ALLERGIES No Information ENCOUNTERS Encounter Location Date Diagnosis [facility] [address] [id number] [address] [place] [id number] Jul, Anxiety F41.9 and Thoracic b ack pain, unspecified back pain laterality, unspecified chronicity M54.6 [facility] [address] [id number] [address] [place] [address] Jun, [facility] [address] [id number] [address] [place] [address] Jun, Thoracic back pain, unspecif ied back pain laterality, unspecified chronicity M54.6 [facility] [address] [id number] [address] [place] [id number] 09 Jun, 2019 [facility] [address] [id number] [address] [place] [id number] 04 Jun, 2019 Anxiety F41.9 and Thoracic b ack pain, unspecified back pain laterality, unspecified chronicity M54.6 [facility] [address] [id number] [address] [place] [id number] 04 Jun, 2019 [facility] [address] [id number] [address] [place] [id number] May, [facility] [address] [id number] [address] [place] [address] May, Psychophysiologic insomnia F 51.04 [facility] [address] [id number] [address] [place] [address] May, Other constipation K59.09 [facility] [address] [id number] [address] [place] [id number] 11 May, 2019 Thoracic back pain, unspecif ied back pain laterality, unspecified chronicity M54.6 [facility] [address] [id number] [address] [place] [id number] 06 May, 2019 Anxiety F41.9 and Thoracic b ack pain, unspecified back pain laterality, unspecified chronicity M54.6 [facility] [address] [id number] [address] [place] [id number] May, [facility] [address] [id number] [address] [place] [address] Apr, [facility] [address] [id number] [address] [place] [address] Apr, [facility] [address] [id number] [address] [place] [id number] Apr, Psychophysiological insomnia F51.04 [facility] [address] [id number] [address] [place] [id number] 15 Apr, 2019 Thoracic back pain, unspecif ied back pain laterality, unspecified chronicity M54.6 [facility] [address] [id number] [address] [place] [id number] 10 Apr, 2019 Thoracic back pain, unspecif ied back pain laterality, unspecified chronicity M54.6 [facility] [address] [id number] [address] [place] [id number] Apr, Anxiety F41.9 [facility] [address] [id number] [address] [place] [address] Apr, Psychophysiological insomnia F51.04 [facility] [address] [id number] [address] [place] [id number] 30 Mar, 2019 Encounter for Medicare annua [...] both eyes, unspecified age-related cataract type H25.9 [facility] [address] [id number] [address] [place] [id number] Mar, Thoracic back pain, unspecif ied back pain laterality, unspecified chronicity M54.6 [facility] [address] [id number] [address] [place] [id number] Mar, Psychophysiological insomnia F51.04 [facility] [address] [id number] [address] [place] [id number] Mar, Thoracic back pain, unspecif ied back pain laterality, unspecified chronicity M54.6 and Anxiety F41.9 [facility] [address] [id number] [address] [place] [address] Mar, Psychophysiological insomnia F51.04 [facility] [address] [id number] [address] [place] [id number] Mar, [facility] [address] [id number] [address] [place] [address] Mar, Psychophysiological insomnia F51.04 [facility] [address] [id number] [address] [place] [id number] Mar, [facility] [address] [id number] [address] [place] [id number] Feb, [facility] [address] [id number] [address] [place] [address] Feb, Thoracic back pain, unspecif ied back pain laterality, unspecified chronicity M54.6 [facility] [address] [id number] [address] [place] [id number] Feb, Anxiety F41.9 and Thoracic b ack pain, unspecified back pain laterality, unspecified chronicity M54.6 [facility] [address] [id number] [address] [place] [address] Feb, Insomnia G47.00 ; HTN (hyper tension) I10 and Constipation K59.00 [facility] [address] [id number] [address] [place] [address] Feb, [facility] [address] [id number] [address] [place] [id number] Jan, Thoracic back pain, unspecif ied back pain laterality, unspecified chronicity M54.6 [facility] [address] [id number] [address] [place] [address] Jan, Anxiety F41.9 [facility] [address] [id number] [address] [place] [phone] Jan, Anxiety F41.9 [facility] [address] [id number] [address] [place] [phone] Jan, Anxiety F41.9 and Thoracic b ack pain, unspecified back pain laterality, unspecified chronicity M54.6 [facility] [address] [id number] [address] [place] [address] Jan, [facility] [address] [id number] [address] [place] [id number] Jan, [facility] [address] [id number] [address] [place] [id number] Dec, Thoracic back pain, unspecif ied back pain laterality, unspecified chronicity M54.6 [facility] [address] [id number] [address] [place] [id number] Dec, Thoracic back pain, unspecif ied back pain laterality, unspecified chronicity M54.6 [facility] [address] [id number] [address] [place] [id number] Nov, Thoracic back pain, unspecif ied back pain laterality, unspecified chronicity M54.6 [facility] [address] [id number] [address] [place] [id number] Nov, Anxiety F41.9 and Thoracic b ack pain, unspecified back pain laterality, unspecified chronicity M54.6 [facility] [address] [id number] [address] [place] [address] Nov, [facility] [address] [id number] [address] [place] [phone] Nov, [facility] [address] [id number] [address] [place] [id number] Nov, [facility] [address] [id number] [address] [place] [id number] Oct, Thoracic back pain, unspecif ied back pain laterality, unspecified chronicity M54.6 [facility] [address] [id number] [address] [place] [id number] Oct, Anxiety F41.9 and Thoracic b ack pain, unspecified back pain laterality, unspecified chronicity M54.6 [facility] [address] [id number] [address] [place] [address] Oct, Schizophrenia, unspecified t ype F20.9 and Acute kidney injury N17.9 [facility] [address] [id number] [address] [place] [phone] Oct, [facility] [address] [id number] [address] [place] [address] Oct, [facility] [address] [id number] [address] [place] [id number] Oct, Thoracic back pain, unspecif ied back pain laterality, unspecified chronicity M54.6 [facility] [address] [id number] [address] [place] [phone] Oct, [facility] [address] [id number] [address] [place] [id number] Oct, [facility] [address] [id number] [address] [place] [id number] Sep, Anxiety F41.9 [facility] [address] [id number] [address] [place] [address] Sep, [facility] [address] [id number] [address] [place] [id number] Sep, Thoracic back pain, unspecif ied back pain laterality, unspecified chronicity M54.6 [facility] [address] [id number] [address] [place] [id number] Sep, [facility] [address] [id number] [address] [place] [phone] Sep, [facility] [address] [id number] [address] [place] [address] Sep, [facility] [address] [id number] [address] [place] [address] Sep, [facility] [address] [id number] [address] [place] [id number] Sep, [facility] [address] [id number] [address] [place] [address] Sep, [facility] [address] [id number] [address] [place] [address] Sep, Chronic pain G89.29 ; Chroni c kidney disease, stage III (moderate) N18.3 ; Hyperlipidemia E78.5 and Insomnia G47.00 [facility] [address] [id number] [address] [place] [id number] Sep, Thoracic back pain, unspecif ied back pain laterality, unspecified chronicity M54.6 [facility] [address] [id number] [address] [place] [address] August, Anxiety F41.9 [facility] [address] [id number] [address] [place] [id number] August, Thoracic back pain, unspecif ied back pain laterality, unspecified chronicity M54.6 and Anxiety F41.9 [facility] [address] [id number] [address] [place] [id number] August, 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 [facility] [address] [id number] [address] [place] [id number] August, 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 [facility] [address] [id number] [address] [place] [phone] August, [facility] [address] [id number] [address] [place] [id number] August, [facility] [address] [id number] [address] [place] [id number] August, Thoracic back pain, unspecif ied back pain laterality, unspecified chronicity M54.6 [facility] [address] [id number] [address] [place] [phone] August, [facility] [address] [id number] [address] [place] [address] August, Anxiety F41.9 and Thoracic b ack pain, unspecified back pain laterality, unspecified chronicity M54.6 [facility] [address] [id number] [address] [place] [id number] Jul, [facility] [address] [id number] [address] [place] [address] Jul, Thoracic back pain, unspecif ied back pain laterality, unspecified chronicity M54.6 [facility] [address] [id number] [address] [place] [id number] Jun, Anxiety F41.9 and Thoracic b ack pain, unspecified back pain laterality, unspecified chronicity M54.6 [facility] [address] [id number] [address] [place] [address] Jun, Anxiety F41.9 and Thoracic b ack pain, unspecified back pain laterality, unspecified chronicity M54.6 [facility] [address] [id number] [address] [place] [address] Jun, Thoracic back pain, unspecif ied back pain laterality, unspecified chronicity M54.6 [facility] [address] [id number] [address] [place] [address] Jun, Anxiety F41.9 and Thoracic b ack pain, unspecified back pain laterality, unspecified chronicity M54.6 [facility] [address] [id number] [address] [place] [id number] May, [facility] [address] [id number] [address] [place] [phone] May, [facility] [address] [id number] [address] [place] [id number] May, [facility] [address] [id number] [address] [place] [id number] 06 May, 2018 Anxiety F41.9 and Encounter for medication monitoring Z51.81 [facility] [address] [id number] [address] [place] [id number] 05 May, 2018 Anxiety F41.9 and Thoracic b ack pain, unspecified back pain laterality, unspecified chronicity M54.6 [facility] [address] [id number] [address] [place] [address] Apr, Hyperlipidemia 272.4 [facility] [address] [id number] [address] [place] [address] Apr, Chronic pain G89.29 ; Anxiet y F41.9 ; Cervical radiculopathy M54.12 and Vision loss H54.7 [facility] [place] [address] [place] [id number] [address] [place] [address] Apr, [facility] [address] [place] [id number] [address] [place] [address] Apr, Anxiety F41.9 and Thoracic b ack pain, unspecified back pain laterality, unspecified chronicity M54.6 [place] [address] [place] [id number] [address] [place] [address] 17 Mar, 2018 [place] [address] [place] [id number] [address] [place] [address] Mar, Anxiety F41.9 and Thoracic b ack pain, unspecified back pain laterality, unspecified chronicity M54.6 [place] [place] [address] [place] [id number] [address] [place] [id number] 14 Feb, 2018 Anxiety F41.9 and Thoracic b ack pain, unspecified back pain laterality, unspecified chronicity M54.6 [facility] [place] [address] [place] [id number] [address] [place] [id number] 07 Feb, 2018 Thoracic back pain, unspecif ied back pain laterality, unspecified chronicity M54.6 [place] [address] [place] [id number] [address] [place] [id number] Jan, [facility] [address] [id number] [address] [place] [address] Jan, Anxiety F41.9 and Thoracic b ack pain, unspecified back pain laterality, unspecified chronicity M54.6 [facility] [address] [id number] [address] [place] [address] 19 Dec, 2017 Diarrhea of presumed infecti ous origin R19.7 [facility] [address] [id number] [address] [place] [address] 19 Dec, 2017 Diarrhea of presumed infecti ous origin R19.7 [facility] [address] [id number] [address] [place] [address] 18 Dec, 2017 Thoracic back pain, unspecif ied back pain laterality, unspecified chronicity M54.6 [facility] [address] [id number] [address] [place] [address] 17 Dec, 2017 [facility] [address] [id number] [address] [place] [address] 17 Dec, 2017 Anxiety F41.9 and Thoracic b ack pain, unspecified back pain laterality, unspecified chronicity M54.6 [facility] [address] [id number] [address] [place] [address] 13 Dec, 2017 Diarrhea of presumed infecti ous origin R19.7 [facility] [address] [id number] [address] [place] [address] Dec, [facility] [address] [id number] [address] [place] [address] Dec, Anxiety F41.9 and Thoracic b ack pain, unspecified back pain laterality, unspecified chronicity M54.6 [facility] [address] [id number] [address] [place] [address] Dec, Anxiety F41.9 and Thoracic b ack pain, unspecified back pain laterality, unspecified chronicity M54.6 [facility] [address] [place], [id number] Dec, Diarrhea of presumed infectious origin R 19.7 ; Anxiety F41.9 ; Thoracic back pain, unspecified back pain laterality, unspecified chronicity M54.6 and HTN (hypertension) I10 [place] [id number] [place] [address] Dec, Anxiety F41.9 [facility] [employer] [facility] [address] [place] [id number] Dec, Anxiety F41.9 ; Diarrhea of presumed inf ectious origin R19.7 ; Generalized abdominal pain R10.84 and Localized edema R60.0 [place] [address] [address] Nov, [facility] [facility] [address] [place] [id number] Nov, Anxiety F41.9 ; Urinary retention R33.9 ; Diarrhea of presumed infectious origin R19.7 ; Weakness R53.1 ; Acute kidney failure, unspecified N17.9 ; Chronic kidney disease, stage III (moderate) N18.3 and Thoracic back pain, unspecified back pain laterality, unspecified chronicity M54.6 [place] [address] [address] Oct, Thoracic back pain, unspecif ied back pain laterality, unspecified chronicity M54.6 and Anxiety F41.9 [place] [address] [place] [id number] [address] [place] [address] Sep, Thoracic back pain, unspecif ied back pain laterality, unspecified chronicity M54.6 and Anxiety F41.9 [place] [address] [place] [id number] [address] [place] [address] Sep, Thoracic back pain, unspecif ied back pain laterality, unspecified chronicity M54.6 ; Anxiety F41.9 and Encounter for medication monitoring Z51.81 [place] [address] [place] [id number] [address] [place] [address] August, [place] [address] [id number] [address] [place] [address] August, Thoracic back pain, unspecif ied back pain laterality, unspecified chronicity M54.6 and Anxiety F41.9 [place] [address] [id number] [address] [place] [address] August, Hyperlipidemia E78.5 and HTN (hypertension) I10 [place] [address] [id number] [address] [place] [address] August, [place] [address] [id number] [address] [place] [address] August, Medicare welcome exam Z00.00 ; Chronic kidney failure N18.9 ; Anxiety F41.9 ; Chronic pain G89.29 ; Insomnia G47.00 ; Hyperlipidemia E78.5 ; HTN (hypertension) I10 and Thoracic back pain, unspecified back pain laterality, unspecified chronicity M54.6 [place] [address] [place] [id number] [address] [place] [address] Jul, [place] [address] [facility] [id number] [address] [place] [address] Jul, [place] [address] [place] [id number] [address] [place] [address] Jul, [place] [address] [facility] [id number] [address] [place] [address] Jul, Anxiety F41.9 [place] [address] [address] [id number] [address] [place] [address] Jul, Thoracic back pain, unspecif ied back pain laterality, unspecified chronicity M54.6 and Anxiety F41.9 [place] [address] [id number] [address] [place] [address] Jun, Thoracic back pain, unspecif ied back pain laterality, unspecified chronicity M54.6 and Anxiety F41.9 [place] [address] [place] [id number] [address] [place] [id number] 12 May, 2017 Thoracic back pain, unspecif ied back pain laterality, unspecified chronicity M54.6 and Anxiety F41.9 [facility] [address] [id number] [address] [place] [address] Apr, Thoracic back pain, unspecif ied back pain laterality, unspecified chronicity M54.6 and Anxiety F41.9 [place] [address] [id number] [address] [place] [id number] 19 Mar, 2017 [place] [address] [id number] [address] [place] [address] 14 Mar, 2017 Thoracic back pain, unspecif ied back pain laterality, unspecified chronicity M54.6 and Anxiety F41.9 [place] [address] [facility] [id number] [address] [place] [address] Mar, Thoracic back pain, unspecif ied back pain laterality, unspecified chronicity M54.6 ; HTN (hypertension) I10 ; Hyperlipidemia E78.5 and Anxiety F41.9 [place] [address] [id number] [address] [place] [address] Feb, Thoracic back pain, unspecif ied back pain laterality, unspecified chronicity M54.6 and Anxiety F41.9 [place] [address] [facility] [id number] [address] [place] [address] Nov, [place] [address] [facility] [id number] [address] [place] [id number] Oct, [place] [address] [id number] [address] [place] [id number] Oct, Thoracic back pain, unspecif ied back pain laterality, unspecified chronicity M54.6 [place] [address] [facility] [id number] [address] [place] [id number] Oct, HTN (hypertension) I10 ; Con stipation K59.00 ; Hyperlipidemia E78.5 ; Thoracic back pain, unspecified back pain laterality, unspecified chronicity M54.6 ; Chronic pain G89.29 ; Anxiety F41.9 ; Chronic kidney failure N18.9 ; Environmental allergies Z91.09 ; Vitamin D deficiency E55.9 and Primary insomnia F51.01 [facility] [address] [facility] [id number] [address] [place] [phone] Sep, Anxiety F41.9 [facility] [address] [facility] [id number] [address] [place] [id number] Sep, [facility] [address] [facility] [id number] [address] [place] [id number] August, Anxiety F41.9 [facility] [address] [facility] [id number] [address] [place] [phone] August, [facility] [address] [place] [id number] [address] [place] [phone] Jul, Anxiety F41.9 [facility] [address] [facility] [id number] [address] [place] [id number] Jul, [facility] [address] [facility] [id number] [address] [place] [id number] Jun, Anxiety F41.9 [facility] [address] [place] [id number] [address] [place] [id number] Jun, [facility] [address] [place] [id number] [address] [place] [phone] May, [facility] [address] [id number] [address] [place] [phone] May, [facility] [address] [id number] [address] [place] [phone] May, [facility] [address] [id number] [address] [place] [id number] Apr, [facility] [address] [id number] [address] [place] [id number] Apr, [facility] [address] [id number] [address] [place] [id number] Apr, Anxiety F41.9 [facility] [address] [id number] [address] [place] [id number] Apr, Anxiety F41.9 [facility] [address] [place] [id number] [address] [place] [id number] Apr, [facility] [address] [place] [place] [id number] [address] [place] [id number] Mar, HTN (hypertension) I10 ; Phillip mor R25.1 ; Hypercholesterolemia E78.0 ; Constipation K59.00 ; Chronic pain G89.29 ; Hyperlipidemia E78.5 ; Insomnia G47.00 ; Anxiety F41.9 and Thoracic back pain, unspecified back pain laterality, unspecified chronicity M54.6 [facility] [address] [place] [id number] [address] [place] [id number] Mar, Tremor R25.1 ; HTN (hyperten stas) I10 ; Hypercholesterolemia E78.0 ; Constipation K59.00 ; Chronic pain G89.29 ; Hyperlipidemia E78.5 ; Insomnia G47.00 ; Anxiety F41.9 and Thoracic back pain, unspecified back pain laterality, unspecified chronicity M54.6 [facility] [address] [place] [id number] [address] [place] [id number] Mar, [facility] [address] [place] [id number] [address] [place] [id number] Mar, [facility] [address] [place] [place] [id number] [address] [place] [id number] Feb, [facility] [address] [id number] [address] [place] [phone] Jan, [facility] [address] [place] [id number] [address] [place] [phone] Jan, [facility] [address] [id number] [address] [place] [id number] 15 Dec, 2015 [facility] [address] [place] [id number] [address] [place] [id number] Nov, [facility] [address] [id number] [address] [place] [phone] Nov, [facility] [address] [id number] [address] [place] [phone] Oct, Anxiety F41.9 [facility] [address] [id number] [address] [place] [id number] Oct, Chronic pain G89.29 [facility] [address] [id number] [address] [place] [phone] Sep, [facility] [address] [id number] [address] [place] [phone] Sep, [facility] [address] [id number] [address] [place] [phone] Sep, [facility] [address] [id number] [address] [place] [id number] Sep, [facility] [address] [id number] [address] [place] [id number] Sep, Chronic pain syndrome G89.4 [facility] [address] [id number] [address] [place] [id number] Sep, HTN (hypertension) I10 ; Chr onic pain G89.29 ; Hypercholesterolemia E78.0 ; Chronic kidney failure N18.9 ; Constipation, unspecified constipation type K59.00 ; Anxiety F41.9 and Thoracic back pain, unspecified back pain laterality, unspecified chronicity M54.6 [facility] [address] [id number] [address] [place] [phone] August, Chronic pain syndrome G89.4 [facility] [address] [id number] [address] [place] [id number] August, Chronic pain syndrome G89.4 [facility] [address] [id number] [address] [place] [id number] 28 Apr, 2016 Anxiety disorder, unspecifie d F41.9 and Chronic pain syndrome G89.4 [facility] [address] [id number] [address] [place] [id number] Jul, Insomnia, unspecified G47.00 and Chronic pain syndrome G89.4 [facility] [address] [id number] [address] [place] [id number] Jul, Allergic rhinitis J30.9 [facility] [address] [id number] [address] [place] [id number] Jul, Constipation, unspecified K5 9.00 [facility] [address] [id number] [address] [place] [id number] Jul, [facility] [address] [place] [id number] [address] [place] [id number] Jun, [facility] [address] [place] [id number] [address] [place] [phone] Jun, [facility] [address] [place] [id number] [address] [place] [phone] Jun, [facility] [address] [place] [id number] [address] [place] [phone] Jun, [facility] [address] [place] [id number] [address] [place] [id number] Jun, [facility] [address] [place] [id number] [address] [place] [phone] Jun, [facility] [address] [place] [id number] [address] [place] [phone] May, [facility] [address] [id number] [address] [place] [id number] May, [facility] [address] [place] [id number] [address] [place] [id number] May, Anxiety F41.9 ; Insomnia G47 .00 ; Hyperlipidemia E78.5 ; Chronic pain G89.29 ; HTN (hypertension) I10 ; Environmental allergies V15.09 and Constipation 564.00 [facility] [address] [id number] [address] [place] [id number] Apr, [facility] [address] [id number] [address] [place] [id number] Apr, [facility] [address] [place] [id number] [address] [place] [phone] Apr, [facility] [address] [place] [id number] [address] [place] [phone] Mar, [facility] [address] [place] [id number] [address] [place] [phone] Mar, [facility] [address] [place] [id number] [address] [place] [id number] Mar, [facility] [address] [place] [id number] [place] [phone] Feb, [facility] [address] [place] [id number] [address] [place] [phone] Feb, [facility] [address] [id number] Feb, [facility] [address] [id number] Jan, HTN (hypertension) I10 ; Con stipation K59.00 ; Chronic pain G89.29 ; Hyperlipidemia E78.5 ; Hypercholesterolemia E78.0 ; Insomnia G47.00 and Anxiety F41.9 [facility] [address] [id number] [address] [place] [id number] Jan, [facility] [address] [place] [id number] [place] [phone] Dec, [facility] [address] [place] [id number] [address] [place] [phone] Nov, [facility] [address] [place] [id number] [place] [phone] Oct, Chronic kidney disease, unsp ecified 585.9 ; Chronic pain syndrome 338.4 ; Hyperlipidemia 272.4 and Essential hypertension 401.9 [facility] [address] [id number] [address] [place] [id number] Oct, Chronic kidney disease 585.9 [facility] [address] [id number] [address] [place] [id number] Oct, [facility] [address] [id number] [address] [place] [id number] Oct, Chronic kidney disease, unsp ecified 585.9 ; Hypercalcemia 275.42 ; Hyperlipidemia 272.4 ; Essential hypertension 401.9 ; Chronic pain syndrome 338.4 ; Insomnia 780.52 ; Constipation 564.00 ; Environmental allergies V15.09 and Anxiety 300.00 [facility] [address] [place] [id number] [address] [place] [id number] Oct, Chronic kidney disease 585.9 [facility] [address] [id number] [address] [place] [phone] Oct, [facility] [address] [id number] [address] [place] [phone] Oct, Chronic kidney disease 585.9 and Hyperlipidemia 272.4 [facility] [address] [id number] [address] [place] [phone] Oct, [facility] [address] [id number] [address] [place] [phone] Oct, [facility] [address] [id number] [address] [place] [id number] 18 Sep, 2014 [facility] [address] [id number] [address] [place] [phone] Sep, [facility] [address] [id number] [address] [place] [phone] Sep, Chronic kidney disease 585.9 and Hyperlipidemia 272.4 [facility] [address] [id number] [address] [place] [phone] Sep, [facility] [address] [id number] [address] [place] [address], [place] [id number] August, [facility] [address] [id number] [address] [place] [address], [place] [id number] August, [facility] [address] [id number] [address] [place] [address], [place] [id number] Jul, [facility] [address] [id number] [address] [place] [address], [place] [id number] Jul, [facility] [address] [id number] [address] [place] [address], [place] [id number] Jun, [facility] [address] [id number] [address] [place] [address], [place] [id number] Jun, [facility] [address] [id number] [address] [place] [address], [place] [id number] Jun, [facility] [address] [id number] [address] [place] [address], [place] [id number] Jun, [facility] [address] [id number] [address] [place] [address], [place] [id number] Jun, [facility] [address] [id number] [address] [place] [address], [place] [id number] Jun, [facility] [address] [id number] [address] [place] [address], [place] [id number] Jun, [facility] [address] [id number] [address] [place] [phone] Jun, [facility] [address] [id number] [address] [place] [address], [place] [id number] May, [facility] [address] [id number] [address] [place] [address], [place] [id number] May, [facility] [address] [id number] [address] [place] [address], [place] [id number] May, [facility] [address] [id number] [address] [place] [address], [place] [id number] May, [facility] [address] [id number] [address] [place] [address], [place] [id number] Apr, [facility] [address] [id number] [address] [place] [address], [place] [id number] Apr, [facility] [address] [id number] [address] [place] [address], [place] [id number] Apr, [facility] [address] [id number] [address] [place] [address], [place] [id number] Apr, [facility] [address] [id number] [address] [place] [address], [place] [id number] Apr, [facility] [address] [id number] [address] [place] [address], [place] [id number] Apr, [facility] [address] [id number] [address] [place] [address], [place] [id number] Apr, [facility] [address] [id number] [address] [place] [address], [place] [id number] Apr, [facility] [address] [id number] [address] [place] [address], [place] [id number] Apr, [facility] [address] [id number] [address] [place] [address], [place] [id number] Apr, [facility] [address] [id number] [address] [place] [address], [place] [id number] Apr, [facility] [address] [id number] [address] [place] [address], [place] [id number] Mar, [facility] [address] [id number] [address] [place] [address], [place] [id number] Mar, [facility] [address] [id number] [address] [place] [address], [place] [id number] Feb, [facility] [address] [id number] [address] [place] [address], [place] [id number] Feb, [facility] [address] [id number] [address] [place] [address], [place] [id number] Feb, [facility] [address] [id number] [address] [place] [address], [place] [id number] Feb, [facility] [address] [id number] [address] [place] [address], [place] [id number] Feb, [facility] [address] [id number] [address] [place] [address], [place] [id number] Feb, [facility] [address] [id number] [address] [place] [address], [place] [id number] Feb, [facility] [address] [id number] [address] [place] [address], [place] [id number] Feb, [facility] [address] [id number] [address] [place] [address], [place] [id number] Feb, [facility] [address] [id number] [address] [place] [address], [place] [id number] Feb, [facility] [address] [id number] [address] [place] [address], [place] [id number] Jan, [facility] [address] [id number] [address] [place] [address], [place] [id number] Jan, [facility] [address] [id number] [address] [place] [address], [place] [id number] Jan, [facility] [address] [id number] [address] [place] [phone] Jan, [facility] [address] [id number] [address] [place] [address], [place] [id number] Jan, [facility] [address] [id number] [address] [place] [address], [place] [id number] Jan, [facility] [address] [id number] [address] [place] [address], [place] [id number] Jan, [facility] [address] [id number] [address] [place] [address], [place] [id number] 17 Jan, 2014 [facility] [address] [id number] [address] [place] [address], [place] [id number] 16 Jan, 2014 [facility] [address] [id number] [address] [place] [address], [place] [id number] Jan, [facility] [address] [id number] [address] [place] [address], [place] [id number] Jan, [facility] [address] [id number] [address] [place] [address], [place] [id number] 26 Dec, 2013 [facility] [address] [id number] [address] [place] [address], [place] [id number] 26 Dec, 2013 [facility] [address] [id number] [address] [place] [address], [place] [id number] 19 Dec, 2013 [facility] [address] [id number] [address] [place] [address], [place] [id number] 19 Dec, 2013 [facility] [address] [id number] [address] [place] [address], [place] [id number] 18 Dec, 2013 [facility] [address] [id number] [address] [place] [address], [place] [id number] 18 Dec, 2013 [facility] [address] [id number] [address] [place] [address], [place] [id number] Dec, [facility] [address] [id number] [address] [place] [address], [place] [id number] Dec, [facility] [address] [id number] [address] [place] [address], [place] [id number] Nov, [facility] [address] [id number] [address] [place] [address], [place] [id number] Nov, [facility] [address] [id number] [address] [place] [address], [place] [id number] Nov, [facility] [address] [id number] [address] [place] [address], [place] [id number] Nov, [facility] [address] [id number] [address] [place] [address], [place] [id number] Nov, [facility] [address] [id number] [address] [place] [address], [place] [id number] Nov, [facility] [address] [id number] [address] [place] [address], [place] [id number] Nov, [facility] [address] [id number] [address] [place] [address], [place] [id number] Nov, [facility] [address] [id number] [address] [place] [address], [place] [id number] Oct, [facility] [address] [id number] [address] [place] [address], [place] [id number] Oct, [facility] [address] [id number] [address] [place] [address], [place] [id number] Oct, [facility] [address] [id number] [address] [place] [address], [place] [id number] Oct, [facility] [address] [id number] [address] [place] [address], [place] [id number] Sep, [facility] [address] [id number] [address] [place] [address], [place] [id number] Sep, [facility] [address] [id number] [address] [place] [address], [place] [id number] Sep, [facility] [address] [id number] [address] [place] [address], [place] [id number] Sep, [facility] [address] [id number] [address] [place] [address], [place] [id number] Sep, [facility] [address] [id number] [address] [place] [address], [place] [id number] Sep, [facility] [address] [id number] [address] [place] [address], [place] [id number] Sep, [facility] [address] [id number] [address] [place] [address], [place] [id number] Sep, [facility] [address] [id number] [address] [place] [address], [place] [id number] August, [facility] [address] [id number] [address] [place] [address], [place] [id number] August, [facility] [address] [id number] [address] [place] [address], [place] [id number] August, [facility] [address] [id number] [address] [place] [address], [place] [id number] August, [facility] [address] [id number] [address] [place] [address], [place] [id number] August, [facility] [address] [id number] [address] [place] [address], [place] [id number] August, [facility] [address] [id number] [address] [place] [address], [place] [id number] August, [facility] [address] [id number] [address] [place] [address], [place] [id number] August, [facility] [address] [id number] [address] [place] [address], [place] [id number] August, [facility] [address] [id number] [address] [place] [address], [place] [id number] August, [facility] [address] [id number] [address] [place] [address], [place] [id number] Jul, [facility] [address] [id number] [address] [place] [address], [place] [id number] Jul, [facility] [address] [id number] [address] [place] [address], [place] [id number] Jul, [facility] [address] [id number] [address] [place] [address], [place] [id number] Jul, [facility] [address] [id number] [address] [place] [address], [place] [id number] Jul, [facility] [address] [id number] [address] [place] [address], [place] [id number] 18 Jul, 2013 [facility] [address] [id number] [address] [place] [address], [place] [id number] Jul, [facility] [address] [id number] [address] [place] [address], [place] [id number] Jul, [facility] [address] [id number] [address] [place] [address], [place] [id number] Jun, [facility] [address] [id number] [address] [place] [address], [place] [id number] Jun, [facility] [address] [id number] [address] [place] [address], [place] [id number] Jun, [facility] [address] [id number] [address] [place] [address], [place] [id number] Jun, [facility] [address] [id number] [address] [place] [address], [place] [id number] Jun, [facility] [address] [id number] [address] [place] [address], [place] [id number] Jun, [facility] [address] [id number] [address] [place] [address], [place] [id number] May, [facility] [address] [id number] [address] [place] [address], [place] [id number] May, [facility] [address] [id number] [address] [place] [address], [place] [id number] May, [facility] [address] [id number] [address] [place] [address], [place] [id number] May, [facility] [address] [id number] [address] [place] [address], [place] [id number] May, [facility] [address] [id number] [address] [place] [address], [place] [id number] May, [facility] [address] [id number] [address] [place] [address], [place] [id number] May, [facility] [address] [id number] [address] [place] [address], [place] [id number] Apr, [facility] [address] [id number] [address] [place] [address], [place] [id number] Apr, [facility] [address] [id number] [address] [place] [address], [place] [id number] Apr, [facility] [address] [id number] [address] [place] [address], [place] [id number] Apr, [facility] [address] [id number] [address] [place] [address], [place] [id number] Apr, [facility] [address] [id number] [address] [place] [address], [place] [id number] Apr, [facility] [address] [id number] [address] [place] [address], [place] [id number] Mar, [facility] [address] [id number] [address] [place] [address], [place] [id number] 31 Mar, 2013 [facility] [address] [id number] [address] [place] [address], [place] [id number] 23 Mar, 2013 [facility] [address] [id number] [address] [place] [address], [place] [id number] 23 Mar, 2013 [facility] [address] [id number] [address] [place] [address], [place] [id number] 19 Mar, 2013 [facility] [address] [id number] [address] [place] [address], [place] [id number] 19 Mar, 2013 [facility] [address] [id number] [address] [place] [address], [place] [id number] 16 Mar, 2013 [facility] [address] [id number] [address] [place] [address], [place] [id number] 16 Mar, 2013 [facility] [address] [id number] [address] [place] [address], [place] [id number] 12 Mar, 2013 [facility] [address] [id number] [address] [place] [address], [place] [id number] Mar, [facility] [address] [id number] [address] [place] [address], [place] [id number] Feb, [facility] [address] [id number] [address] [place] [address], [place] [id number] Feb, [facility] [address] [id number] [address] [place] [address], [place] [id number] Feb, [facility] [address] [id number] [address] [place] [address], [place] [id number] Feb, [facility] [address] [id number] [address] [place] [address], [place] [id number] Feb, [facility] [address] [id number] [address] [place] [address], [place] [id number] Feb, [facility] [address] [id number] [address] [place] [address], [place] [id number] Feb, [facility] [address] [id number] [address] [place] [address], [place] [id number] Feb, [facility] [address] [id number] [address] [place] [address], [place] [id number] Feb, [facility] [address] [id number] [address] [place] [address], [place] [id number] Feb, [facility] [address] [id number] [address] [place] [address], [place] [id number] Jan, [facility] [address] [id number] [address] [place] [address], [place] [id number] Jan, [facility] [address] [id number] [address] [place] [address], [place] [id number] Jan, [facility] [address] [id number] [address] [place] [address], [place] [id number] Jan, [facility] [address] [id number] [address] [place] [address], [place] [id number] Jan, [facility] [address] [id number] [address] [place] [address], [place] [id number] Jan, [facility] [address] [id number] [address] [place] [address], [place] [id number] Jan, [facility] [address] [id number] [address] [place] [address], [place] [id number] Jan, [facility] [address] [id number] [address] [place] [address], [place] [id number] Jan, [facility] [address] [id number] [address] [place] [address], [place] [id number] Dec, [facility] [address] [id number] [address] [place] [address], [place] [id number] Dec, [facility] [address] [id number] [address] [place] [address], [place] [id number] Dec, [facility] [address] [id number] [address] [place] [address], [place] [id number] Dec, [facility] [address] [id number] [address] [place] [address], [place] [id number] Nov, [facility] [address] [id number] [address] [place] [address], [place] [id number] Nov, [facility] [address] [id number] [address] [place] [address], [place] [id number] Nov, [facility] [address] [id number] [address] [place] [address], [place] [id number] Nov, [facility] [address] [id number] [address] [place] [address], [place] [id number] Nov, [facility] [address] [id number] [address] [place] [address], [place] [id number] Nov, [facility] [address] [id number] [address] [place] [address], [place] [id number] Oct, [facility] [address] [id number] [address] [place] [address] [place] [id number] 20 Oct, 2012 [facility] [address] [id number] [address] [place] [address], [place] [id number] Oct, [facility] [address] [id number] [address] [place] [address], [place] [id number] 08 Oct, 2012 [facility] [address] [id number] [address] [place] [address], [place] [id number] 27 Sep, 2012 [facility] [address] [id number] [address] [place] [address], [place] [id number] Sep, [facility] [address] [id number] [address] [place] [address], [place] [id number] Sep, [facility] [address] [id number] [address] [place] [address], [place] [id number] 14 Sep, 2012 [facility] [address] [id number] [address] [place] [address], [place] [id number] Sep, [facility] [address] [id number] [address] [place] [address], [place] [id number] August, [facility] [address] [id number] [address] [place] [address], [place] [id number] August, [facility] [address] [id number] [address] [place] [address], [place] [id number] Jul, [facility] [address] [id number] [address] [place] [address], [place] [id number] 19 Jul, 2012 [facility] [address] [id number] [address] [place] [address], [place] [id number] 15 Jul, 2012 [facility] [address] [id number] [address] [place] [address], [place] [id number] 09 Jul, 2012 [facility] [address] [id number] [address] [place] [address], [place] [id number] 08 Jul, 2012 [facility] [address] [id number] [address] [place] [address], [place] [id number] Jun, [facility] [address] [id number] [address] [place] [address], [place] [id number] Jun, [facility] [address] [id number] [address] [place] [address], [place] [id number] Jun, [facility] [address] [id number] [address] [place] [address], [place] [id number] 06 Jun, 2012 [facility] [address] [id number] [address] [place] [address], [place] [id number] Jun, [facility] [address] [id number] [address] [place] [address], [place] [id number] May, [facility] [address] [id number] [address] [place] [address], [place] [id number] May, [facility] [address] [id number] [address] [place] [address], [place] [id number] May, [facility] [address] [id number] [address] [place] [address], [place] [id number] May, [facility] [address] [id number] [address] [place] [address], [place] [id number] May, [facility] [address] [id number] [address] [place] [address], [place] [id number] May, [facility] [address] [id number] [address] [place] [address], [place] [id number] May, [facility] [address] [id number] [address] [place] [address], [place] [id number] May, [facility] [address] [id number] [address] [place] [address], [place] [id number] May, [facility] [address] [id number] [address] [place] [address], [place] [id number] Apr, [facility] [address] [id number] [address] [place] [address], [place] [id number] Apr, [facility] [address] [id number] [address] [place] [address], [place] [id number] Apr, [facility] [address] [id number] [address] [place] [address], [place] [id number] Apr, [facility] [address] [id number] [address] [place] [address], [place] [id number] Apr, [facility] [address] [id number] [address] [place] [address], [place] [id number] Mar, [facility] [address] [id number] [address] [place] [address], [place] [id number] Mar, [facility] [address] [id number] [address] [place] [address], [place] [id number] Mar, [facility] [address] [id number] [address] [place] [address], [place] [id number] Mar, [facility] [address] [id number] [address] [place] [address], [place] [id number] Mar, [facility] [address] [id number] [address] [place] [address], [place] [id number] Mar, [facility] [address] [id number] [address] [place] [address], [place] [id number] Mar, [facility] [address] [id number] [address] [place] [address], [place] [id number] Mar, [facility] [address] [id number] [address] [place] [address], [place] [id number] Mar, [facility] [address] [id number] [address] [place] [address], [place] [id number] Mar, [facility] [address] [id number] [address] [place] [address], [place] [id number] 30 Feb, 2012 [facility] [address] [id number] [address] [place] [address], [place] [id number] 30 Feb, 2012 [facility] [address] [id number] [address] [place] [address], [place] [id number] 29 Feb, 2012 [facility] [address] [id number] [address] [place] [address], [place] [id number] Feb, [facility] [address] [id number] [address] [place] [address], [place] [id number] Feb, [facility] [address] [id number] [address] [place] [address], [place] [id number] Feb, [facility] [address] [id number] [address] [place] [address], [place] [id number] Feb, [facility] [address] [id number] [address] [place] [address], [place] [id number] Feb, [facility] [address] [id number] [address] [place] [address], [place] [id number] Feb, [facility] [address] [id number] [address] [place] [address], [place] [id number] Feb, [facility] [address] [id number] [address] [place] [address], [place] [id number] Feb, [facility] [address] [id number] [address] [place] [address], [place] [id number] Feb, [facility] [address] [id number] [address] [place] [address], [place] [id number] Feb, [facility] [address] [id number] [address] [place] [address], [place] [id number] Feb, [facility] [address] [id number] [address] [place] [address], [place] [id number] Feb, [facility] [address] [id number] [address] [place] [address], [place] [id number] Feb, [facility] [address] [id number] [address] [place] [address], [place] [id number] Feb, [facility] [address] [id number] [address] [place] [address], [place] [id number] 07 Feb, 2012 [facility] [address] [id number] [address] [place] [address], [place] [id number] Jan, [facility] [address] [id number] [address] [place] [address], [place] [id number] Jan, [facility] [address] [id number] [address] [place] [address], [place] [id number] Jan, [facility] [address] [id number] [address] [place] [address], [place] [id number] Jan, [facility] [address] [id number] [address] [place] [address], [place] [id number] Jan, [facility] [address] [id number] [address] [place] [address], [place] [id number] Jan, [facility] [address] [id number] [address] [place] [address], [place] [id number] Jan, [facility] [address] [id number] [address] [place] [address], [place] [id number] Jan, [facility] [address] [id number] [address] [place] [address], [place] [id number] Jan, [facility] [address] [id number] [address] [place] [address], [place] [id number] Jan, [facility] [address] [id number] [address] [place] [address], [place] [id number] 24 Dec, 2011 [facility] [address] [id number] [address] [place] [address], [place] [id number] 18 Dec, 2011 [facility] [address] [id number] [address] [place] [id number] Dec, [facility] [address] [id number] [address] [place] [address], [place] [id number] Dec, [facility] [address] [id number] [address] [place] [address], [place] [id number] Nov, [facility] [address] [id number] [address] [place] [address], [place] [id number] Nov, [facility] [address] [id number] [address] [place] [address], [place] [id number] Nov, [facility] [address] [id number] [address] [place] [address], [place] [id number] Nov, [facility] [address] [id number] [address] [place] [address], [place] [id number] Nov, [facility] [address] [id number] [address] [place] [address], [place] [id number] Nov, [facility] [address] [id number] [address] [place] [address], [place] [id number] Oct, [facility] [address] [id number] [address] [place] [address], [place] [id number] Oct, [facility] [address] [id number] [address] [place] [address], [place] [id number] Oct, [facility] [address] [id number] [address] [place] [address], [place] [id number] Oct, [facility] [address] [id number] [address] [place] [address], [place] [id number] Oct, [facility] [address] [id number] [address] [place] [address], [place] [id number] Sep, [facility] [address] [id number] [address] [place] [address], [place] [id number] Sep, [facility] [address] [id number] [address] [place] [address], [place] [id number] Sep, [facility] [address] [id number] [address] [place] [address], [place] [id number] Sep, [facility] [address] [id number] [address] [place] [address], [place] [id number] Sep, [facility] [address] [id number] [address] [place] [address], [place] [id number] August, [facility] [address] [id number] [address] [place] [address], [place] [id number] August, [facility] [address] [id number] [address] [place] [address], [place] [id number] August, [facility] [address] [id number] [address] [place] [address], [place] [id number] August, [facility] [address] [id number] [address] [place] [address], [place] [id number] Jul, [facility] [address] [id number] [address] [place] [address], [place] [id number] Jul, [facility] [address] [id number] [address] [place] [address], [place] [id number] Jul, [facility] [address] [id number] [address] [place] [address], [place] [id number] Jul, [facility] [address] [id number] [address] [place] [address], [place] [id number] Jul, [facility] [address] [id number] [address] [place] [address], [place] [id number] Jul, [facility] [address] [id number] [address] [place] [address], [place] [id number] Jul, [facility] [address] [id number] [address] [place] [address], [place] [id number] Jul, [facility] [address] [id number] [address] [place] [address], [place] [id number] Jul, [facility] [address] [id number] [address] [place] [address], [place] [id number] Jul, [facility] [address] [id number] [address] [place] [address], [place] [id number] 05 Jul, 2011 [facility] [address] [id number] [address] [place] [address], [place] [id number] Jul, [facility] [address] [id number] [address] [place] [address], [place] [id number] Jul, [facility] [address] [id number] [address] [place] [address], [place] [id number] 02 Jul, 2011 [facility] [address] [id number] [address] [place] [address], [place] [id number] Jun, [facility] [address] [id number] [address] [place] [address], [place] [id number] 27 Jun, 2011 [facility] [address] [id number] [address] [place] [address], [place] [id number] 20 Jun, 2011 [facility] [address] [id number] [address] [place] [address], [place] [id number] 16 Jun, 2011 [facility] [address] [id number] [address] [place] [address], [place] [id number] May, [facility] [address] [id number] [address] [place] [address], [place] [id number] 16 May, 2011 [facility] [address] [id number] [address] [place] [address], [place] [id number] May, [facility] [address] [id number] [address] [place] [address], [place] [id number] Apr, [facility] [address] [id number] [address] [place] [address], [place] [id number] 18 Apr, 2011 [facility] [address] [id number] [address] [place] [address], [place] [id number] 13 Apr, 2011 [facility] [address] [id number] [address] [place] [address], [place] [id number] Apr, [facility] [address] [id number] [address] [place] [address], [place] [id number] Apr, [facility] [address] [id number] [address] [place] [address], [place] [id number] Mar, [facility] [address] [id number] [address] [place] [address], [place] [id number] Mar, [facility] [address] [id number] [address] [place] [address], [place] [id number] Mar, [facility] [address] [id number] [address] [place] [address], [place] [id number] 20 Mar, 2011 [facility] [address] [id number] [address] [place] [address], [place] [id number] 16 Mar, 2011 [facility] [address] [id number] [address] [place] [address], [place] [id number] 09 Mar, 2011 [facility] [address] [id number] [address] [place] [address], [place] [id number] 05 Mar, 2011 [facility] [address] [id number] [address] [place] [address], [place] [id number] 29 Feb, 2011 [facility] [address] [id number] [address] [place] [address], [place] [id number] 25 Feb, 2011 [facility] [address] [id number] [address] [place] [address], [place] [id number] Feb, [facility] [address] [id number] [address] [place] [address], [place] [id number] Feb, [facility] [address] [id number] [address] [place] [address], [place] [id number] 16 Feb, 2011 [facility] [address] [id number] [address] [place] [address], [place] [id number] 14 Feb, 2011 [facility] [address] [id number] [address] [place] [address], [place] [id number] Feb, [facility] [address] [id number] [address] [place] [address], [place] [id number] 31 Jan, 2011 [facility] [address] [id number] [address] [place] [address], [place] [id number] 31 Jan, 2011 [facility] [address] [id number] [address] [place] [address], [place] [id number] 31 Jan, 2011 [facility] [address] [id number] [address] [place] [address], [place] [id number] 18 Jan, 2011 [facility] [address] [id number] [address] [place] [address], [place] [id number] 17 Jan, 2011 [facility] [address] [id number] [address] [place] [address], [place] [id number] 17 Jan, 2011 [facility] [address] [id number] [address] [place] [address], [place] [id number] 17 Jun, 2010 [facility] [address] [id number] [address] [place] [address], [place] [id number] 30 Mar, 2010 [facility] [address] [id number] [address] [place] [address], [place] [id number] 20 Mar, 2010 [facility] [address] [id number] [address] [place] [address], [place] [id number] 14 Mar, 2010 [facility] [address] [id number] [address] [place] [address], [place] [id number] 14 Mar, 2010 [facility] [address] [id number] [address] [place] [address], [place] [id number] 13 Mar, 2010 [facility] [address] [id number] [address] [place] [address], [place] [id number] 07 Mar, 2010 [facility] [address] [id number] [address] [place] [address], [place] [id number] 02 Mar, 2010 [facility] [address] [id number] [address] [place] [address], [place] [id number] Mar, [facility] [address] [id number] [address] [place] [address], [place] [id number] 30 Feb, 2010 [facility] [address] [id number] [address] [place] [address], [place] [id number] 29 Feb, 2010 [facility] [address] [id number] [address] [place] [address], [place] [id number] 17 Feb, 2010 [facility] [address] [id number] [address] [place] [address], [place] [id number] 17 Feb, 2010 [facility] [address] [id number] [address] [place] [address], [place] [id number] 16 Feb, 2010 [facility] [address] [id number] [address] [place] [address], [place] [id number] 08 Feb, 2010 [facility] [address] [id number] [address] [place] [address], [place] [id number] 04 Feb, 2010 [facility] [address] [id number] [address] [place] [address], [place] [id number] Feb, [facility] [address] [id number] [address] [place] [address], [place] [id number] 28 Jan, 2010 [facility] [address] [id number] [address] [place] [address], [place] [id number] Jan, [facility] [address] [id number] [address] [place] [address], [place] [id number] Jan, [facility] [address] [id number] [address] [place] [address], [place] [id number] Jan, [facility] [address] [id number] [address] [place] [address], [place] [id number] 29 Mar, 2009 [facility] [address] [id number] [address] [place] [address], [place] [id number] 22 Mar, 2009 [facility] [address] [id number] [address] [place] [address], [place] [id number] 19 Mar, 2009 [facility] [address] [id number] [address] [place] [address], [place] [id number] 19 Mar, 2009 [facility] [address] [id number] [address] [place] [address], [place] [id number] 14 Mar, 2009 [facility] [address] [id number] [address] [place] [address], [place] [id number] 10 Mar, 2009 [facility] [address] [id number] [address] [place] [address], [place] [id number] 18 Feb, 2009 [facility] [address] [id number] [address] [place] [address], [place] [id number] 18 Feb, 2009 [facility] [address] [id number] [address] [place] [address], [place] [id number] Jan, [facility] [address] [id number] [address] [place] [id number] Sep, [facility] [address] [id number] [address] [place] [id number] May, IMMUNIZATIONS No Known Immunizations SOCIAL HISTORY [...] Surgical History Left ear surgery Hospitalization History [facility] in [place]- Spontane ous Pneumothorax Hospitalization History [facility]- Colon resection Hospital[facility] - diarrhea/ couldnt urin ate nov 2017 Hospitalization History pain /hip to foot right side 10/16/19 19
--- OUTSIDE RECORDS SUMMARY | 2019-08-28 08:52 | XMS REPORT ---
Author Author Dixon DE LEON [facility] Address [address] [place] [address] Care Team Providers Care Managing Consultant Name Role Phone STEPHAN DE LEON Unavailable PROBLEMS Type Condition ICD9-CM Code DZI19-LG Code Onset Dates Condition S tatus SNOMED Code Problem Insomnia G47.00 Active 843779376 Problem Anxiety F41.9 Active 16583489 Problem HTN (hypertension) I10 Active 3 4587186 Problem Chronic pain G89.29 Active 8035637 1 Problem Constipation K59.00 Active 4220009 8 Problem Thoracic back pain, unspecif ied back pain laterality, unspecified chronicity M54.6 Active 809724950 Problem Hyperlipidemia E78.5 Active 33608 004 Problem Vitamin D deficiency E55.9 Active 69193828 Problem Chronic kidney disease, stage III (moderate) N18.3 Active 307933533 Problem Vision loss H54.7 Active 68222416 1 Problem Age-related cataract of both eyes, unspecified age-related cataract type H25.9 Active 15145848 Problem Primary insomnia F51.01 Active 397 2004 Problem Psychophysiologic insomnia F51.04 Act saúl 122408440 Problem Environmental allergies Z91.09 Active 866135671 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 [address] [facility] [id number] [address] [place] [phone] Jun, [facility] [address] [facility] [id number] [address] [place] [phone] Jun, Thoracic back pain, unspecif ied back pain laterality, unspecified chronicity M54.6 [facility] [address] [id number] [address] [place] [phone] 09 Jun, [address] [facility] [address] [id number] [address] [place] [phone] 04 Jun, 2019 Anxiety F41.9 and Thoracic b ack pain, unspecified back pain laterality, unspecified chronicity M54.6 [facility] [address] [id number] [address] [place] [phone] 04 Jun, [facility] [address] [id number] [address] [place] [phone] May, [facility] [address] [id number] [address] [place] [phone] May, Psychophysiologic insomnia F 51.04 [place] [address] [facility] [id number] [address] [place] [phone] 13 May, [address] [facility] [address] [id number] [address] [place] [phone] 11 May, 2019 Thoracic back pain, unspecif ied back pain laterality, unspecified chronicity M54.6 [place] [address] [facility] [id number] [address] [place] [phone] 06 May, 2019 Anxiety F41.9 and Thoracic b ack pain, unspecified back pain laterality, unspecified chronicity M54.6 [place] [address] [facility] [id number] [address] [place] [phone] [address], [address] [facility] [address] [id number] [address] [place] [phone] Apr, [facility] [address] [facility] [id number] [address] [place] [phone] Apr, [facility] [address] [facility] [id number] [address] [place] [address] Apr, Psychophysiological insomnia F51.04 [place] [address] [facility] [id number] [address] [place] [address] Apr, Thoracic back pain, unspecif ied back pain laterality, unspecified chronicity M54.6 [place] [address] [facility] [id number] [address] [place] [phone] 10 Apr, 2019 Thoracic back pain, unspecif ied back pain laterality, unspecified chronicity M54.6 [place] [address] [facility] [id number] [address] [place] [phone] 10 Apr, 2019 Anxiety F41.9 [place] [address] [place] [id number] [address] [place] [address] Apr, Psychophysiological insomnia F51.04 [place] [address] [place] [id number] [place] [phone] 30 Mar, 2019 Encounter for Medicare annua [...] both eyes, unspecified age-related cataract type H25.9 [place] [address] [place] [id number] [address] [place] [phone] Mar, Thoracic back pain, unspecif ied back pain laterality, unspecified chronicity M54.6 [place] [address] [place] [id number] [address] [place] [address] Mar, Psychophysiological insomnia F51.04 [place] [address] [facility] [id number] [address] [place] [address] Mar, Thoracic back pain, unspecif ied back pain laterality, unspecified chronicity M54.6 and Anxiety F41.9 [place] [address] [facility] [id number] [address] [place] [phone] Mar, Psychophysiological insomnia F51.04 [facility] [address] [id number] [address] [place] [phone] Mar, [facility] [address] [id number] [address] [place] [address] Mar, Psychophysiological insomnia F51.04 [facility] [address] [id number] [address] [place] [address] Mar, [facility] [address] [id number] [address] [place] [phone] Feb, [facility] [address] [id number] [address] [place] [phone] Feb, Thoracic back pain, unspecif ied back pain laterality, unspecified chronicity M54.6 [facility] [address] [facility] [id number] [address] [place] [phone] Feb, Anxiety F41.9 and Thoracic b ack pain, unspecified back pain laterality, unspecified chronicity M54.6 [facility] [address] [id number] [address] [place] [address] Feb, Insomnia G47.00 ; HTN (hyper tension) I10 and [address]ipation K59[address]00 [facility] [address] [id number] [address] [place] [phone] Feb, [facility] [address] [id number] [address] [place] [phone] Jan, Thoracic back pain, unspecif ied back pain laterality, unspecified chronicity M54.6 [facility] [address] [id number] [address] [place] [phone] Jan, Anxiety F41.9 [facility] [address] [facility] [id number] [address] [place] [phone] Jan, Anxiety F41.9 [facility] [address] [facility] [id number] [address] [place] [phone] Jan, Anxiety F41.9 and Thoracic b ack pain, unspecified back pain laterality, unspecified chronicity M54.6 [facility] [address] [id number] [address] [place] [phone] Jan, [facility] [address] [id number] [address] [place] [phone] Jan, [facility] [address] [id number] [address] [place] [phone] Dec, Thoracic back pain, unspecif ied back pain laterality, unspecified chronicity M54.6 [facility] [address] [id number] [address] [place] [phone] Dec, Thoracic back pain, unspecif ied back pain laterality, unspecified chronicity M54.6 [facility] [address] [id number] [address] [place] [phone] Nov, Thoracic back pain, unspecif ied back pain laterality, unspecified chronicity M54.6 [facility] [address] [id number] [address] [place] [phone] Nov, Anxiety F41.9 and Thoracic b ack pain, unspecified back pain laterality, unspecified chronicity M54.6 [facility] [address] [id number] [address] [place] [phone] Nov, [facility] [address] [id number] [address] [place] [phone] Nov, [facility] [address] [id number] [address] [place] [phone] Nov, [facility] [address] [id number] [address] [place] [phone] Oct, Thoracic back pain, unspecif ied back pain laterality, unspecified chronicity M54.6 [facility] [address] [id number] [address] [place] [phone] Oct, Anxiety F41.9 and Thoracic b ack pain, unspecified back pain laterality, unspecified chronicity M54.6 [place] [address] [id number] [address] [place] [address] Oct, Schizophrenia, unspecified t ype F20.9 and Acute kidney injury N17.9 [facility] [address] [id number] [address] [place] [phone] Oct, [facility] [address] [id number] [address] [place] [phone] Oct, [facility] [address] [id number] [address] [place] [address] Oct, Thoracic back pain, unspecif ied back pain laterality, unspecified chronicity M54.6 [facility] [address] [id number] [address] [place] [phone] Oct, [facility] [address] [id number] [address] [place] [phone] Oct, [facility] [address] [id number] [address] [place] [address] Sep, Anxiety F41.9 [facility] [address] [id number] [address] [place] [address] Sep, [facility] [address] [id number] [address] [place] [address] Sep, Thoracic back pain, unspecif ied back pain laterality, unspecified chronicity M54.6 [facility] [address] [id number] [address] [place] [phone] Sep, [facility] [address] [id number] [address] [place] [phone] Sep, [facility] [address] [id number] [address] [place] [phone] Sep, [facility] [address] [id number] [address] [place] [address] Sep, [facility] [address] [id number] [address] [place] [phone] Sep, [facility] [address] [id number] [address] [place] [address] Sep, [facility] [address] [id number] [address] [place] [address] Sep, Chronic pain G89.29 ; Chroni c kidney disease, stage III (moderate) N18.3 ; Hyperlipidemia E78.[address] [facility] [address] [id number] [address] [place] [address] Sep, Thoracic back pain, unspecif ied back pain laterality, unspecified chronicity M54.6 [facility] [address] [id number] [address] [place] [phone] August, Anxiety F41.9 [facility] [address] [facility] [id number] [address] [place] [phone] August, Thoracic back pain, unspecif ied back pain laterality, unspecified chronicity M54.[address] 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 [address] [id number] [address] [place] [phone] August, [facility] [address] [id number] [address] [place] [phone] August, [facility] [address] [id number] [address] [place] [address] August, Thoracic back pain, unspecif ied back pain laterality, unspecified chronicity M54.6 [facility] [address] [id number] [address] [place] [phone] August, [facility] [address] [facility] [id number] [address] [place] [address] August, Anxiety F41.9 and Thoracic b ack pain, unspecified back pain laterality, unspecified chronicity M54.6 [facility] [address] [id number] [address] [place] [phone] Jul, [facility] [address] [facility] [id number] [address] [place] [address] Jul, Thoracic back pain, unspecif ied back pain laterality, unspecified chronicity M54.6 [facility] [address] [id number] [address] [place] [address] Jun, Anxiety F41.9 and Thoracic b ack pain, unspecified back pain laterality, unspecified chronicity M54.6 [facility] [address] [facility] [id number] [address] [place] [address] Jun, Anxiety F41.9 and Thoracic b ack pain, unspecified back pain laterality, unspecified chronicity M54.6 [facility] [address] [facility] [id number] [address] [place] [address] Jun, Thoracic back pain, unspecif ied back pain laterality, unspecified chronicity M54.6 [facility] [address] [facility] [id number] [address] [place] [phone] Jun, Anxiety F41.9 and Thoracic b ack pain, unspecified back pain laterality, unspecified chronicity M54.6 [facility] [address] [facility] [id number] [address] [place] [phone] May, [facility] [address] [facility] [id number] [address] [place] [phone] May, [facility] [address] [facility] [id number] [address] [place] [address] May, [facility] [address] [facility] [id number] [address] [place] [address] May, Anxiety F41.9 and Encounter for medication monitoring Z51.81 [facility] [address] [id number] [address] [place] [address] May, Anxiety F41.9 and Thoracic b ack pain, unspecified back pain laterality, unspecified chronicity M54.6 [facility] [address] [id number] [address] [place] [address] Apr, Hyperlipidemia 272.4 [facility] [address] [id number] [address] [place] [address] Apr, Chronic pain G89.29 ; Anxiet y F41.9 ; Cervical radiculopathy M54.12 [address]54[address]7 [facility] [address] [id number] [address] [place] [address] Apr, [facility] [address] [id number] [address] [place] [address] Apr, Anxiety F41.9 and Thoracic b ack pain, unspecified back pain laterality, unspecified chronicity M54.6 [facility] [address] [id number] [address] [place] [address] Mar, [facility] [address] [id number] [address] [place] [phone] Mar, Anxiety F41.9 and Thoracic b ack pain, unspecified back pain laterality, unspecified chronicity M54.6 [facility] [address] [id number] [address] [place] [address] Feb, Anxiety F41.9 and Thoracic b ack pain, unspecified back pain laterality, unspecified chronicity M54.6 [facility] [address] [id number] [address] [place] [address] 07 Feb, 2018 Thoracic back pain, unspecif ied back pain laterality, unspecified chronicity M54.6 [facility] [address] [id number] [address] [place] [phone] Jan, [facility] [address] [id number] [address] [place] [phone] Jan, Anxiety F41.9 and Thoracic b ack pain, unspecified back pain laterality, unspecified chronicity M54.6 [facility] [address] [id number] [address] [place] [phone] 19 Dec, 2017 Diarrhea of presumed infecti ous origin R19.7 [facility] [address] [id number] [address] [place] [address] 19 Dec, 2017 Diarrhea of presumed infecti ous origin R19.7 [facility] [address] [id number] [address] [place] [address] 18 Dec, 2017 Thoracic back pain, unspecif ied back pain laterality, unspecified chronicity M54.6 [facility] [address] [id number] [address] [place] [phone] [address], [address] [facility] [address] [id number] [address] [place] [address] 17 Dec, 2017 Anxiety F41.9 and Thoracic b ack pain, unspecified back pain laterality, unspecified chronicity M54.6 [facility] [address] [id number] [address] [place] [phone] 13 Dec, 2017 Diarrhea of presumed infecti ous origin R19.7 [facility] [address] [id number] [address] [place] [phone] [address], [address] [facility] [address] [id number] [address] [place] [address] Dec, Anxiety F41.9 and Thoracic b ack pain, unspecified back pain laterality, unspecified chronicity M54.6 [facility] [address] [id number] [address] [place] [address] Dec, Anxiety F41.9 and Thoracic b ack pain, unspecified back pain laterality, unspecified chronicity M54.6 [facility] [address] [place] [id number] Dec, Diarrhea of presumed infectious origin R 19.7 ; Anxiety F41.9 ; Thoracic back pain, unspecified back pain laterality, unspecified chronicity M54.6 and HTN (hypertension) I10 [place] [address] [facility] [id number] [address] [place] [address] Dec, Anxiety F41.9 Via [facility] [address] [place] [id number] Dec, Anxiety F41.9 ; Diarrhea of presumed inf ectious origin R19.7 ; Generalized abdominal pain R10.84 and Localized edema R60.0 [place] [address] [facility] [id number] [address] [place] [address] Nov, Via [email or web address] [facility] [address] [place] [id number] Nov, Anxiety F41.9 ; Urinary retention R33.9 ; Diarrhea of presumed infectious origin R19.7 ; Weakness R53.1 ; Acute kidney failure, unspecified N17.9 ; Chronic kidney disease, stage III (moderate) N18.3 and Thoracic back pain, unspecified back pain laterality, unspecified chronicity M54.6 [place] [address] [address] Oct, Thoracic back pain, unspecif ied back pain laterality, unspecified chronicity M54.6 and Anxiety F41.9 [place] [address] [place] [id number] [address] [place] [phone] Sep, Thoracic back pain, unspecif ied back pain laterality, unspecified chronicity M54.6 and Anxiety F41.9 [place] [address] [facility] [id number] [address] [place] [address] Sep, Thoracic back pain, unspecif ied back pain laterality, unspecified chronicity M54.6 ; Anxiety F41.9 and Encounter for medication monitoring Z51.81 [place] [address] [facility] [id number] [address] [place] [phone] August, [place] [address] [facility] [id number] [place] [address] August, Thoracic back pain, unspecif ied back pain laterality, unspecified chronicity M54.6 and Anxiety F41.9 [place] [id number] [id number] [address] [place] [address] August, Hyperlipidemia E78.5 and HTN (hypertension) I10 [facility] [address] [id number] [address] [place] [address] August, [facility] [address] [facility] [id number] [address] [place] [phone] August, Medicare welcome exam Z00.00 ; Chronic kidney failure N18.9 ; Anxiety F41.9 ; Chronic pain G89.29 ; Insomnia G47.00 ; Hyperlipidemia E78.5 ; HTN (hypertension) I10 and Thoracic back pain, unspecified back pain laterality, unspecified chronicity M54.6 [place] [id number] [id number] [address] [place] [id number] Jul, [place] [address] [id number] [address] [place] [id number] Jul, [place] [address] [id number] [address] [place] [id number] Jul, [place] [address] [id number] [address] [place] [phone] Jul, Anxiety F41.9 [place] [address] [id number] [address] [place] [id number] Jul, Thoracic back pain, unspecif ied back pain laterality, unspecified chronicity M54.6 and Anxiety F41.9 [place] [address] [id number] [address] [place] [phone] Jun, Thoracic back pain, unspecif ied back pain laterality, unspecified chronicity M54.6 and Anxiety F41.9 [place] [id number] [id number] [address] [place] [phone] May, Thoracic back pain, unspecif ied back pain laterality, unspecified chronicity M54.6 and Anxiety F41.9 [place] [address] [place] [id number] [address] [place] [id number] Apr, Thoracic back pain, unspecif ied back pain laterality, unspecified chronicity M54.6 and Anxiety F41.9 [place] [address] [place] [id number] [address] [place] [id number] Mar, [place] [address] [place] [id number] [place] [phone] 14 Mar, 2017 Thoracic back pain, unspecif ied back pain laterality, unspecified chronicity M54.6 and Anxiety F41.9 [place] [address] [place] [id number] [place] [phone] Mar, Thoracic back pain, unspecif ied back pain laterality, unspecified chronicity M54.6 ; HTN (hypertension) I10 ; Hyperlipidemia E78.5 and Anxiety F41.9 [place] [address] [place] [id number] [place] [id number] Feb, Thoracic back pain, unspecif ied back pain laterality, unspecified chronicity M54.6 and Anxiety F41.9 [place] [address] [place] [id number] [place] [phone] Nov, [place] [address] [place] [id number] [place] [id number] Oct, [place] [address] [place] [id number] [place] [phone] Oct, Thoracic back pain, unspecif ied back pain laterality, unspecified chronicity M54.6 [place] [address] [place] [id number] [address] [place] [phone] Oct, HTN (hypertension) I10 ; Con stipation K59.00 ; Hyperlipidemia E78.5 ; Thoracic back pain, unspecified back pain laterality, unspecified chronicity M54.6 ; Chronic pain G89.29 ; Anxiety F41.9 ; Chronic kidney failure N18.9 ; Environmental allergies Z91.09 ; Vitamin D deficiency E55.[address] [facility] [address] [id number] [address] [place] [id number] Sep, Anxiety F41.9 [facility] [address] [id number] [address] [place] [phone] Sep, [facility] [address] [id number] [address] [place] [phone] August, Anxiety F41.9 [facility] [address] [id number] [address] [place] [phone] August, [facility] [address] [id number] [address] [place] [phone] Jul, Anxiety F[address]9 [facility] [address] [id number] [address] [place] [phone] Jul, [facility] [address] [id number] [address] [place] [id number] Jun, Anxiety F41.9 [facility] [address] [id number] [address] [place] [phone] Jun, [facility] [address] [id number] [address] [place] [phone] May, [facility] [address] [id number] [address] [place] [phone] May, [facility] [address] [id number] [address] [place] [phone] May, [facility] [address] [id number] [address] [place] [phone] Apr, [facility] [address] [id number] [address] [place] [phone] Apr, [facility] [address] [id number] [address] [place] [id number] Apr, Anxiety F41.9 [facility] [address] [id number] [address] [place] [phone] Apr, Anxiety F41.9 [facility] [address] [id number] [address] [place] [phone] Apr, [facility] [address] [id number] [address] [place] [address] Mar, HTN (hypertension) I10 ; Phillip mor R25.1 ; Hypercholesterolemia E78.0 ; Constipation K59.00 ; Chronic pain G89.29 ; Hyperlipidemia E78.5 ; Insomnia G47.00 ; Anxiety F41.9 and Thoracic back pain, unspecified back pain laterality, unspecified chronicity M54.6 [facility] [address] [id number] [address] [place] [id number] Mar, Tremor R25.1 ; HTN (hyperten stas) I10 ; Hypercholesterolemia E78.0 ; Constipation K59.00 ; Chronic pain G89.29 ; Hyperlipidemia E78.5 ; Insomnia G47.00 ; Anxiety F41.9 and Thoracic back pain, unspecified back pain laterality, unspecified chronicity M54.6 [facility] [address] [id number] [address] [place] [phone] Mar, [facility] [address] [address] [id number] [address] [place] [id number] Mar, [facility] [address] [address] [id number] [address] [place] [phone] Feb, [facility] [address] [place] [id number] [address] [place] [phone] Jan, [facility] [address] [place] [address] [id number] [address] [place] [phone] Jan, [facility] [address] [address] [id number] [address] [place] [id number] 15 Dec, 2015 [facility] [address] [address] [id number] [address] [place] [phone] Nov, [facility] [address] [place] [id number] [address] [place] [phone] Nov, [facility] [address] [id number] [address] [place] [phone] Oct, Anxiety F41.9 [facility] [address] [facility] [id number] [address] [place] [id number] Oct, Chronic pain G89.29 [facility] [address] [id number] [address] [place] [id number] Sep, [facility] [address] [id number] [address] [place] [phone] Sep, [facility] [address] [facility] [id number] [address] [place] [phone] Sep, [facility] [address] [facility] [id number] [address] [place] [phone] Sep, [facility] [address] [facility] [id number] [address] [place] [phone] Sep, Chronic pain syndrome G89.4 [facility] [address] [facility] [id number] [address] [place] [phone] Sep, HTN (hypertension) I10 ; Chr onic pain G89.29 ; Hypercholesterolemia E78.0 ; Chronic kidney failure N18.9 ; Constipation, unspecified constipation type K59.00 ; Anxiety F41.9 and Thoracic back pain, unspecified back pain laterality, unspecified chronicity M54.6 [facility] [address] [facility] [id number] [address] [place] [phone] August, Chronic pain syndrome G89.4 [facility] [address] [facility] [id number] [address] [place] [phone] August, Chronic pain syndrome G89.4 [facility] [address] [facility] [id number] [address] [place] [phone] Jul, Anxiety disorder, unspecifie d F41.9 and Chronic pain syndrome G89.4 [facility] [address] [facility] [id number] [address] [place] [phone] Jul, Insomnia, unspecified G47.00 and Chronic pain syndrome G89.4 [facility] [address] [address] Jul, Allergic rhinitis J30.9 [facility] [address] [place] [id number] [place] [phone] Jul, Constipation, unspecified K5 9.00 [facility] [address] [place] [address] [id number] [place] [phone] Jul, [facility] [address] [place] [address] [id number] [place] [phone] Jun, [facility] [address] [place] [id number] [place] [phone] Jun, [facility] [address] [id number] Jun, [facility] [address] [id number] Jun, [facility] [address] [address] Jun, [facility] [address] [place] [address] [id number] [place] [phone] Jun, [facility] [address] [address] May, [facility] [address] [place] [address] [id number] [place] [address] May, [facility] [address] [address] May, Anxiety F41.9 ; Insomnia G47 .00 ; Hyperlipidemia E78.5 ; Chronic pain G89.29 ; HTN (hypertension) I10 ; Environmental allergies V15.[address] [facility] [id number] [place] [phone] Apr, [facility] [address] [facility] [id number] [address] [place] [phone] Apr, [facility] [address] [facility] [id number] [address] [place] [phone] Apr, [facility] [address] [facility] [id number] [address] [place] [phone] Mar, [facility] [address] [facility] [id number] [address] [place] [id number] Mar, [facility] [address] [facility] [id number] [address] [place] [phone] Mar, [facility] [address] [facility] [id number] [address] [place] [phone] Feb, [facility] [address] [place] [id number] [address] [place] [phone] Feb, [facility] [address] [place] [id number] [address] [place] [id number] Feb, [facility] [address] [place] [id number] [address] [place] [phone] Jan, HTN (hypertension) I10 ; Con stipation K59.00 ; Chronic pain G89.29 ; Hyperlipidemia E78.5 ; Hypercholesterolemia E78.0 ; Insomnia G47.[address] [facility] [address] [place] [id number] [address] [place] [id number] Jan, [facility] [address] [facility] [id number] [address] [place] [phone] Dec, [facility] [address] [place] [id number] [place] [phone] Nov, [facility] [address] [facility] [id number] [address] [place] [phone] Oct, Chronic kidney disease, unsp ecified 585.9 ; Chronic pain syndrome 338.4 ; Hyperlipidemia 272.4 and Essential hypertension 401.9 [facility] [address] [facility] [id number] [address] [place] [id number] 20 Oct, 2014 Chronic kidney disease 585.9 [facility] [address] [facility] [id number] [address] [place] [phone] [address], [address] [facility] [address] [facility] [id number] [address] [place] [id number] 15 Oct, 2014 Chronic kidney disease, unsp ecified 585.9 ; Hypercalcemia 275.42 ; Hyperlipidemia 272.4 ; Essential hypertension 401.9 ; Chronic pain syndrome 338.4 ; Insomnia 780.52 ; Constipation 564.00 ; Environmental allergies V15.[address] [facility] [address] [facility] [id number] [address] [place] [phone] 15 Oct, 2014 Chronic kidney disease 585.9 [facility] [address] [facility] [id number] [address] [place] [id number] [address], [address] [facility] [address] [facility] [id number] [address] [place] [phone] 14 Oct, 2014 Chronic kidney disease 585.[address] [facility] [address] [facility] [id number] [address] [place] [phone] [address], [address] [facility] [address] [facility] [id number] [address] [place] [phone] [address], [address] [facility] [address] [facility] [id number] [address] [place] [id number] [address], [address] [facility] [address] [facility] [id number] [address] [place] [id number] [address], [address] [facility] [address] [facility] [id number] [address] [place] [phone] 15 Sep, 2014 Chronic kidney disease 585.[address] [facility] [address] [facility] [id number] [address] [place] [phone] [address], [address] [facility] [address] [facility] [id number] [address] [place] [phone] August, [facility] [address] [id number] [address] [place] [address], [place] [address] August, [facility] [address] [id number] [address] [place] [address], [place] [id number] Jul, [facility] [address] [id number] [address] [place] [address], [place] [id number] Jul, [facility] [address] [id number] [address] [place] [address], [place] [id number] Jun, [facility] [address] [id number] [address] [place] [address], [place] [id number] Jun, [facility] [address] [id number] [address] [place] [address], [place] [id number] Jun, [facility] [address] [id number] [address] [place] [address], [place] [id number] Jun, [facility] [address] [id number] [address] [place] [address], [place] [id number] Jun, [facility] [address] [id number] [address] [place] [address], [place] [id number] Jun, [facility] [address] [id number] [address] [place] [address], [place] [id number] Jun, [facility] [address] [id number] [address] [place] [phone] Jun, [facility] [address] [id number] [address] [place] [phone] May, [facility] [address] [id number] [address] [place] [address], [place] [address] May, [facility] [address] [id number] [address] [place] [address], [place] [id number] May, [facility] [address] [id number] [address] [place] [phone] May, [facility] [address] [id number] [address] [place] [address], [place] [id number] Apr, [facility] [address] [id number] [address] [place] [address], [place] [address] Apr, [facility] [address] [id number] [address] [place] [address], [place] [id number] Apr, [facility] [address] [id number] [address] [place] [address], [place] [id number] Apr, [facility] [address] [id number] [address] [place] [address], [place] [address] Apr, [facility] [address] [id number] [address] [place] [address], [place] [id number] Apr, [facility] [address] [id number] [address] [place] [address], [place] [id number] Apr, [facility] [address] [id number] [address] [place] [address], [place] [id number] Apr, [facility] [address] [id number] [address] [place] [address], [place] [id number] Apr, [facility] [address] [id number] [address] [place] [address], [place] [id number] Apr, [facility] [address] [id number] [address] [place] [address], [place] [id number] Apr, [facility] [address] [id number] [address] [place] [address], [place] [id number] Mar, [facility] [address] [id number] [address] [place] [address], [place] [id number] Mar, [facility] [address] [id number] [address] [place] [address], [place] [id number] Feb, [facility] [address] [id number] [address] [place] [address], [place] [id number] Feb, [facility] [address] [id number] [address] [place] [address], [place] [id number] Feb, [facility] [address] [id number] [address] [place] [address], [place] [id number] Feb, [facility] [address] [id number] [address] [place] [address], [place] [id number] Feb, [facility] [address] [id number] [address] [place] [address], [place] [id number] Feb, [facility] [address] [id number] [address] [place] [address], [place] [id number] Feb, [facility] [address] [id number] [address] [place] [address], [place] [address] Feb, [facility] [address] [id number] [address] [place] [address], [place] [id number] Feb, [facility] [address] [id number] [address] [place] [address], [place] [id number] Feb, [facility] [address] [id number] [address] [place] [address], [place] [id number] Jan, [facility] [address] [id number] [address] [place] [address], [place] [address] Jan, [facility] [address] [id number] [address] [place] [address], [place] [id number] Jan, [facility] [address] [id number] [address] [place] [address], [place] [id number] Jan, [facility] [address] [id number] [address] [place] [phone] Jan, [facility] [address] [id number] [address] [place] [address], [place] [address] Jan, [facility] [address] [id number] [address] [place] [address], [place] [id number] Jan, [facility] [address] [id number] [address] [place] [address], [place] [address] Jan, [facility] [address] [id number] [address] [place] [address], [place] [id number] 16 Jan, 2014 [facility] [address] [id number] [address] [place] [address], [place] [id number] 06 Jan, 2014 [facility] [address] [id number] [address] [place] [address], [place] [address] Jan, [facility] [address] [id number] [address] [place] [address], [place] [address] Dec, [facility] [address] [id number] [address] [place] [address], [place] [id number] 26 Dec, 2013 [facility] [address] [id number] [address] [place] [address], [place] [id number] Dec, [facility] [address] [id number] [address] [place] [address], [place] [id number] Dec, [facility] [address] [id number] [address] [place] [address], [place] [id number] 18 Dec, 2013 [facility] [address] [id number] [address] [place] [address], [place] [id number] 18 Dec, 2013 [facility] [address] [id number] [address] [place] [address], [place] [address] Dec, [facility] [address] [id number] [address] [place] [address], [place] [address] Dec, [facility] [address] [id number] [address] [place] [address], [place] [id number] Nov, [facility] [address] [id number] [address] [place] [address], [place] [address] Nov, [facility] [address] [id number] [address] [place] [address], [place] [address] Nov, [facility] [address] [id number] [address] [place] [address], [place] [address] Nov, [facility] [address] [id number] [address] [place] [address], [place] [address] Nov, [facility] [address] [id number] [address] [place] [address], [place] [address] Nov, [facility] [address] [id number] [address] [place] [address], [place] [address] Nov, [facility] [address] [id number] [address] [place] [address], [place] [address] Nov, [facility] [address] [id number] [address] [place] [address], [place] [id number] Oct, [facility] [address] [id number] [address] [place] [address], [place] [id number] Oct, [facility] [address] [id number] [address] [place] [address], [place] [address] Oct, [facility] [address] [id number] [address] [place] [address], [place] [id number] Oct, [facility] [address] [id number] [address] [place] [address], [place] [address] Sep, [facility] [address] [id number] [address] [place] [address], [place] [id number] Sep, [facility] [address] [id number] [address] [place] [address], [place] [id number] Sep, [facility] [address] [id number] [address] [place] [address], [place] [id number] Sep, [facility] [address] [id number] [address] [place] [address], [place] [id number] Sep, [facility] [address] [id number] [address] [place] [address], [place] [id number] Sep, [facility] [address] [id number] [address] [place] [address], [place] [id number] Sep, [facility] [address] [id number] [address] [place] [address], [place] [id number] Sep, [facility] [address] [id number] [address] [place] [address], [place] [id number] August, [facility] [address] [id number] [address] [place] [address], [place] [address] August, [facility] [address] [id number] [address] [place] [address], [place] [id number] August, [facility] [address] [id number] [address] [place] [address], [place] [id number] August, [facility] [address] [id number] [address] [place] [address], [place] [id number] August, [facility] [address] [id number] [address] [place] [address], [place] [id number] August, [facility] [address] [id number] [address] [place] [address], [place] [id number] August, [facility] [address] [id number] [address] [place] [address], [place] [id number] August, [facility] [address] [id number] [address] [place] [address], [place] [id number] August, [facility] [address] [id number] [address] [place] [address], [place] [id number] August, [facility] [address] [id number] [address] [place] [address], [place] [address] Jul, [facility] [address] [id number] [address] [place] [address], [place] [address] Jul, [facility] [address] [id number] [address] [place] [address], [place] [id number] Jul, [facility] [address] [id number] [address] [place] [address], [place] [id number] Jul, [facility] [address] [id number] [address] [place] [address], [place] [id number] Jul, [facility] [address] [id number] [address] [place] [address], [place] [id number] Jul, [facility] [address] [id number] [address] [place] [address], [place] [id number] 10 Jul, 2013 [facility] [address] [id number] [address] [place] [address], [place] [id number] Jul, [facility] [address] [id number] [address] [place] [address], [place] [id number] Jun, [facility] [address] [id number] [address] [place] [address], [place] [id number] Jun, [facility] [address] [id number] [address] [place] [address], [place] [address] Jun, [facility] [address] [id number] [address] [place] [address], [place] [address] Jun, [facility] [address] [id number] [address] [place] [address], [place] [id number] Jun, [facility] [address] [id number] [address] [place] [address], [place] [id number] Jun, [facility] [address] [id number] [address] [place] [address], [place] [id number] May, [facility] [address] [id number] [address] [place] [address], [place] [address] May, [facility] [address] [id number] [address] [place] [address], [place] [address] May, [facility] [address] [id number] [address] [place] [address], [place] [address] May, [facility] [address] [id number] [address] [place] [address], [place] [address] May, [facility] [address] [id number] [address] [place] [address], [place] [address] May, [facility] [address] [id number] [address] [place] [address], [place] [address] May, [facility] [address] [id number] [address] [place] [address], [place] [address] Apr, [facility] [address] [id number] [address] [place] [address], [place] [address] Apr, [facility] [address] [id number] [address] [place] [address], [place] [address] Apr, [facility] [address] [id number] [address] [place] [address], [place] [address] Apr, [facility] [address] [id number] [address] [place] [address], [place] [address] Apr, [facility] [address] [id number] [address] [place] [address], [place] [address] Apr, [facility] [address] [id number] [address] [place] [address], [place] [address] Mar, [facility] [address] [id number] [address] [place] [address], [place] [address] Mar, [facility] [address] [id number] [address] [place] [address], [place] [address] Mar, [facility] [address] [id number] [address] [place] [address], [place] [address] Mar, [facility] [address] [id number] [address] [place] [address], [place] [address] Mar, [facility] [address] [id number] [address] [place] [address], [place] [address] Mar, [facility] [address] [id number] [address] [place] [address], [place] [address] 16 Mar, 2013 [facility] [address] [id number] [address] [place] [address], [place] [address] 16 Mar, 2013 [facility] [address] [id number] [address] [place] [address], [place] [id number] 12 Mar, 2013 [facility] [address] [id number] [address] [place] [address], [place] [address] Mar, [facility] [address] [id number] [address] [place] [address], [place] [address] Feb, [facility] [address] [id number] [address] [place] [address], [place] [address] Feb, [facility] [address] [id number] [address] [place] [address], [place] [address] Feb, [facility] [address] [id number] [address] [place] [address], [place] [address] Feb, [facility] [address] [id number] [address] [place] [address], [place] [address] Feb, [facility] [address] [id number] [address] [place] [address], [place] [address] Feb, [facility] [address] [id number] [address] [place] [address], [place] [address] Feb, [facility] [address] [id number] [address] [place] [address], [place] [address] Feb, [facility] [address] [id number] [address] [place] [address], [place] [address] Feb, [facility] [address] [id number] [address] [place] [address], [place] [address] Feb, [facility] [address] [id number] [address] [place] [address], [place] [address] Jan, [facility] [address] [id number] [address] [place] [address], [place] [address] Jan, [facility] [address] [id number] [address] [place] [address], [place] [address] Jan, [facility] [address] [id number] [address] [place] [address], [place] [address] Jan, [facility] [address] [id number] [address] [place] [address], [place] [address] Jan, [facility] [address] [id number] [address] [place] [address], [place] [address] Jan, [facility] [address] [id number] [address] [place] [address], [place] [address] Jan, [facility] [address] [id number] [address] [place] [address], [place] [address] Jan, [facility] [address] [id number] [address] [place] [address], [place] [address] Jan, [facility] [address] [id number] [address] [place] [address], [place] [address] Dec, [facility] [address] [id number] [address] [place] [address], [place] [address] Dec, [facility] [address] [id number] [address] [place] [address], [place] [address] Dec, [facility] [address] [id number] [address] [place] [address], [place] [address] Dec, [facility] [address] [id number] [address] [place] [address], [place] [address] Nov, [facility] [address] [id number] [address] [place] [address], [place] [address] Nov, [facility] [address] [id number] [address] [place] [address], [place] [address] Nov, [facility] [address] [id number] [address] [place] [address], [place] [address] Nov, [facility] [address] [id number] [address] [place] [address], [place] [address] Nov, [facility] [address] [id number] [address] [place] [address], [place] [address] Nov, [facility] [address] [id number] [address] [place] [address], [place] [address] Oct, [facility] [address] [id number] [address] [place] [address], [place] [address] Oct, [facility] [address] [id number] [address] [place] [address] [place] [address] 12 Oct, 2012 [facility] [address] [id number] [address] [place] [address], [place] [address] 08 Oct, 2012 [facility] [address] [id number] [address] [place] [address], [place] [address] 27 Sep, 2012 [facility] [address] [id number] [address] [place] [address], [place] [address] 19 Sep, 2012 [facility] [address] [id number] [address] [place] [address], [place] [address] 17 Sep, 2012 [facility] [address] [id number] [address] [place] [address], [place] [address] 14 Sep, 2012 [facility] [address] [id number] [address] [place] [address], [place] [address] 10 Sep, 2012 [facility] [address] [id number] [address] [place] [address], [place] [address] August, [facility] [address] [id number] [address] [place] [address], [place] [address] 2012 [facility] [address] [id number] [address] [place] [address], [place] [address] 19 Jul, 2012 [facility] [address] [id number] [address] [place] [address], [place] [address] 19 Jul, 2012 [facility] [address] [id number] [address] [place] [address], [place] [id number] 15 Jul, 2012 [facility] [address] [id number] [address] [place] [address], [place] [id number] 09 Jul, 2012 [facility] [address] [id number] [address] [place] [address], [place] [address] 08 Jul, 2012 [facility] [address] [id number] [address] [place] [address], [place] [address] 26 Jun, 2012 [facility] [address] [id number] [address] [place] [address], [place] [id number] 20 Jun, 2012 [facility] [address] [id number] [address] [place] [address], [place] [address] 15 Jun, 2012 [facility] [address] [id number] [address] [place] [address], [place] [id number] 06 Jun, 2012 [facility] [address] [id number] [address] [place] [address], [place] [address] Jun, [facility] [address] [id number] [address] [place] [address], [place] [address] May, [facility] [address] [id number] [address] [place] [address], [place] [address] May, [facility] [address] [id number] [address] [place] [address], [place] [address] May, [facility] [address] [id number] [address] [place] [address], [place] [address] May, [facility] [address] [id number] [address] [place] [address], [place] [address] May, [facility] [address] [id number] [address] [place] [address], [place] [address] 14 May, 2012 [facility] [address] [id number] [address] [place] [address], [place] [address] May, [facility] [address] [id number] [address] [place] [address], [place] [address] May, [facility] [address] [id number] [address] [place] [address], [place] [address] May, [facility] [address] [id number] [address] [place] [address], [place] [address] Apr, [facility] [address] [id number] [address] [place] [address], [place] [address] Apr, [facility] [address] [id number] [address] [place] [address], [place] [address] Apr, [facility] [address] [id number] [address] [place] [address], [place] [id number] 14 Apr, 2012 [facility] [address] [id number] [address] [place] [address], [place] [address] Apr, [facility] [address] [id number] [address] [place] [address], [place] [address] Mar, [facility] [address] [id number] [address] [place] [address], [place] [address] Mar, [facility] [address] [id number] [address] [place] [address], [place] [address] Mar, [facility] [address] [id number] [address] [place] [address], [place] [address] Mar, [facility] [address] [id number] [address] [place] [address], [place] [address] Mar, [facility] [address] [id number] [address] [place] [address], [place] [address] Mar, [facility] [address] [id number] [address] [place] [address], [place] [address] Mar, [facility] [address] [id number] [address] [place] [address], [place] [address] Mar, [facility] [address] [id number] [address] [place] [address], [place] [address] Mar, [facility] [address] [id number] [address] [place] [address], [place] [address] Mar, [facility] [address] [id number] [address] [place] [address], [place] [address] 30 Feb, 2012 [facility] [address] [id number] [address] [place] [address], [place] [address] Feb, [facility] [address] [id number] [address] [place] [address], [place] [address] Feb, [facility] [address] [id number] [address] [place] [address], [place] [address] Feb, [facility] [address] [id number] [address] [place] [address], [place] [address] Feb, [facility] [address] [id number] [address] [place] [address], [place] [address] Feb, [facility] [address] [id number] [address] [place] [address], [place] [id number] Feb, [facility] [address] [id number] [address] [place] [address], [place] [address] Feb, [facility] [address] [id number] [address] [place] [address], [place] [address] Feb, [facility] [address] [id number] [address] [place] [address], [place] [id number] 16 Feb, 2012 [facility] [address] [id number] [address] [place] [address], [place] [address] Feb, [facility] [address] [id number] [address] [place] [address], [place] [address] Feb, [facility] [address] [id number] [address] [place] [address], [place] [address] Feb, [facility] [address] [id number] [address] [place] [address], [place] [id number] Feb, [facility] [address] [id number] [address] [place] [address], [place] [address] Feb, [facility] [address] [id number] [address] [place] [address], [place] [address] Feb, [facility] [address] [id number] [address] [place] [address], [place] [address] Feb, [facility] [address] [id number] [address] [place] [address], [place] [address] Feb, [facility] [address] [id number] [address] [place] [address], [place] [id number] 31 Jan, 2012 [facility] [address] [id number] [address] [place] [address], [place] [address] Jan, [facility] [address] [id number] [address] [place] [address], [place] [address] Jan, [facility] [address] [id number] [address] [place] [address], [place] [address] Jan, [facility] [address] [id number] [address] [place] [address], [place] [address] Jan, [facility] [address] [id number] [address] [place] [address], [place] [address] Jan, [facility] [address] [id number] [address] [place] [address], [place] [address] Jan, [facility] [address] [id number] [address] [place] [address], [place] [address] Jan, [facility] [address] [id number] [address] [place] [address], [place] [address] Jan, [facility] [address] [id number] [address] [place] [address], [place] [address] Jan, [facility] [address] [id number] [address] [place] [address], [place] [address] Dec, [facility] [address] [id number] [address] [place] [address], [place] [address] Dec, [facility] [address] [id number] [address] [place] [address], [place] [address] Dec, [facility] [address] [id number] [address] [place] [address] Dec, [facility] [address] [id number] [address] [place] [address], [place] [address] Nov, [facility] [address] [id number] [address] [place] [address], [place] [address] Nov, [facility] [address] [id number] [address] [place] [address], [place] [address] Nov, [facility] [address] [id number] [address] [place] [address], [place] [address] Nov, [facility] [address] [id number] [address] [place] [address], [place] [address] Nov, [facility] [address] [id number] [address] [place] [address], [place] [address] Nov, [facility] [address] [id number] [address] [place] [address], [place] [address] Oct, [facility] [address] [id number] [address] [place] [address], [place] [address] Oct, [facility] [address] [id number] [address] [place] [address], [place] [address] Oct, [facility] [address] [id number] [address] [place] [address], [place] [address] Oct, [facility] [address] [id number] [address] [place] [address], [place] [address] Oct, [facility] [address] [id number] [address] [place] [address], [place] [address] Sep, [facility] [address] [id number] [address] [place] [address], [place] [address] Sep, [facility] [address] [id number] [address] [place] [address], [place] [address] Sep, [facility] [address] [id number] [address] [place] [address], [place] [address] Sep, [facility] [address] [id number] [address] [place] [address], [place] [address] Sep, [facility] [address] [id number] [address] [place] [address], [place] [address] August, [facility] [address] [id number] [address] [place] [address], [place] [address] August, [facility] [address] [id number] [address] [place] [address], [place] [address] August, [facility] [address] [id number] [address] [place] [address], [place] [address] August, [facility] [address] [id number] [address] [place] [address], [place] [address] 27 Jul, 2011 [facility] [address] [id number] [address] [place] [address], [place] [id number] 24 Jul, 2011 [facility] [address] [id number] [address] [place] [address], [place] [address] Jul, [facility] [address] [id number] [address] [place] [address], [place] [address] Jul, [facility] [address] [id number] [address] [place] [address], [place] [address] Jul, [facility] [address] [id number] [address] [place] [address], [place] [address] Jul, [facility] [address] [id number] [address] [place] [address], [place] [address] Jul, [facility] [address] [id number] [address] [place] [address], [place] [address] Jul, [facility] [address] [id number] [address] [place] [address], [place] [address] Jul, [facility] [address] [id number] [address] [place] [address], [place] [address] Jul, [facility] [address] [id number] [address] [place] [address], [place] [id number] 05 Jul, 2011 [facility] [address] [id number] [address] [place] [address], [place] [address] Jul, [facility] [address] [id number] [address] [place] [address], [place] [address] Jul, [facility] [address] [id number] [address] [place] [address], [place] [address] Jul, [facility] [address] [id number] [address] [place] [address], [place] [id number] 28 Jun, 2011 [facility] [address] [id number] [address] [place] [address], [place] [address] 27 Jun, 2011 [facility] [address] [id number] [address] [place] [address], [place] [id number] 20 Jun, 2011 [facility] [address] [id number] [address] [place] [address], [place] [id number] 16 Jun, 2011 [facility] [address] [id number] [address] [place] [address], [place] [id number] 27 May, 2011 [facility] [address] [id number] [address] [place] [address], [place] [id number] 16 May, 2011 [facility] [address] [id number] [address] [place] [address], [place] [id number] 09 May, 2011 [facility] [address] [id number] [address] [place] [address], [place] [id number] Apr, [facility] [address] [id number] [address] [place] [address], [place] [id number] 18 Apr, 2011 [facility] [address] [id number] [address] [place] [address], [place] [id number] 13 Apr, 2011 [facility] [address] [id number] [address] [place] [address], [place] [id number] Apr, [facility] [address] [id number] [address] [place] [address], [place] [id number] 09 Apr, 2011 [facility] [address] [id number] [address] [place] [address], [place] [id number] Mar, [facility] [address] [id number] [address] [place] [address], [place] [id number] Mar, [facility] [address] [id number] [address] [place] [address], [place] [id number] Mar, [facility] [address] [id number] [address] [place] [address], [place] [id number] Mar, [facility] [address] [id number] [address] [place] [address], [place] [id number] 16 Mar, 2011 [facility] [address] [id number] [address] [place] [address], [place] [id number] 09 Mar, 2011 [facility] [address] [id number] [address] [place] [address], [place] [id number] 05 Mar, 2011 [facility] [address] [id number] [address] [place] [address], [place] [id number] 29 Feb, 2011 [facility] [address] [id number] [address] [place] [address], [place] [id number] 25 Feb, 2011 [facility] [address] [id number] [address] [place] [address], [place] [id number] Feb, [facility] [address] [id number] [address] [place] [address], [place] [id number] Feb, [facility] [address] [id number] [address] [place] [address], [place] [id number] 16 Feb, 2011 [facility] [address] [id number] [address] [place] [address], [place] [id number] 14 Feb, 2011 [facility] [address] [id number] [address] [place] [address], [place] [id number] 10 Feb, 2011 [facility] [address] [id number] [address] [place] [address], [place] [id number] 31 Jan, 2011 [facility] [address] [id number] [address] [place] [address], [place] [id number] 31 Jan, 2011 [facility] [address] [id number] [address] [place] [address], [place] [id number] 31 Jan, 2011 [facility] [address] [id number] [address] [place] [address], [place] [id number] 18 Jan, 2011 [facility] [address] [id number] [address] [place] [address], [place] [id number] 17 Jan, 2011 [facility] [address] [id number] [address] [place] [address], [place] [id number] 17 Jan, 2011 [facility] [address] [id number] [address] [place] [address], [place] [id number] 17 Jun, 2010 [facility] [address] [id number] [address] [place] [address], [place] [id number] 30 Mar, 2010 [facility] [address] [id number] [address] [place] [address], [place] [id number] 20 Mar, 2010 [facility] [address] [id number] [address] [place] [address], [place] [id number] 14 Mar, 2010 [facility] [address] [id number] [address] [place] [address], [place] [id number] 14 Mar, 2010 [facility] [address] [id number] [address] [place] [address], [place] [id number] 13 Mar, 2010 [facility] [address] [id number] [address] [place] [address], [place] [id number] 07 Mar, 2010 [facility] [address] [id number] [address] [place] [address], [place] [id number] 02 Mar, 2010 [facility] [address] [id number] [address] [place] [address], [place] [id number] Mar, [facility] [address] [id number] [address] [place] [address], [place] [id number] 30 Feb, 2010 [facility] [address] [id number] [address] [place] [address], [place] [id number] 29 Feb, 2010 [facility] [address] [id number] [address] [place] [id number] 17 Feb, 2010 [facility] [address] [id number] [address] [place] [address], [place] [id number] 17 Feb, 2010 [facility] [address] [id number] [address] [place] [address], [place] [id number] 16 Feb, 2010 [facility] [address] [id number] [address] [place] [address], [place] [id number] 08 Feb, 2010 [facility] [address] [id number] [address] [place] [address], [place] [id number] 04 Feb, 2010 [facility] [address] [id number] [address] [place] [address], [place] [id number] Feb, [facility] [address] [id number] [address] [place] [address], [place] [id number] 28 Jan, 2010 [facility] [address] [id number] [address] [place] [address], [place] [id number] Jan, [facility] [address] [id number] [address] [place] [address], [place] [id number] Jan, [facility] [address] [id number] [address] [place] [address], [place] [id number] Jan, [facility] [address] [id number] [address] [place] [address], [place] [id number] 29 Mar, 2009 [facility] [address] [id number] [address] [place] [address], [place] [id number] 22 Mar, 2009 [facility] [address] [id number] [address] [place] [address], [place] [id number] 19 Mar, 2009 [facility] [address] [id number] [address] [place] [address], [place] [id number] 19 Mar, 2009 [facility] [address] [id number] [address] [place] [address], [place] [id number] 14 Mar, 2009 [facility] [address] [id number] [address] [place] [address], [place] [id number] 10 Mar, 2009 [facility] [address] [id number] [address] [place] [address], [place] [id number] 18 Feb, 2009 [facility] [address] [id number] [address] [place] [address], [place] [id number] 18 Feb, 2009 [facility] [address] [id number] [address] [place] [address], [place] [id number] 13 Jan, 2009 [facility] [address] [id number] [address] [place] [id number] 10 Sep, 2008 [facility] [address] [facility] [id number] [address] [place] [address] 18 May, 2008 IMMUNIZATIONS No Known Immunizations [...] Surgical History Left ear surgery Hospitalization History [facility] in [place]- Spontane ous Pneumothorax Hospitalization History [facility]- Colon resection [facility] - diarrhea/ couldnt urin ate nov 2017 Hospitalization History pain /hip to foot right side 10/16/19 19
--- OUTSIDE RECORDS SUMMARY | 2019-08-28 08:52 | XMS REPORT ---
Author Author Dixon Lundberg Doctor Organization [facility] Address Unknown Phone Unavailable Care Team Providers Care Manager Pulmonary Name Role Phone Migration, Doctor Unavailable Unavailable PROBLEMS Type Condition ICD9-CM Code AXQ10-GB Code Onset Dates Condition S tatus SNOMED Code Problem Insomnia G47.00 Active 132963649 Problem Anxiety F41.9 Active 37934133 Problem HTN (hypertension) I10 Active 3 6639269 Problem Chronic pain G89.29 Active 9620415 1 Problem Constipation K59.00 Active 2302631 8 Problem Thoracic back pain, unspecif ied back pain laterality, unspecified chronicity M54.6 Active 780275915 Problem Hyperlipidemia E78.5 Active 10654 004 Problem Vitamin D deficiency E55.9 Active 24658264 Problem Chronic kidney disease, stage III (moderate) N18.3 Active 861016682 Problem Vision loss H54.7 Active 67492646 1 Problem Age-related cataract of both eyes, unspecified age-related cataract type H25.9 Active 64597704 Problem Primary insomnia F51.01 Active 397 2004 Problem Psychophysiologic insomnia F51.04 Act saúl 015172368 Problem Environmental allergies Z91.09 Active 735796656 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 78748258 Problem Schizophrenia, unspecified type F20.9 Active 16429665 Problem Psychophysiological insomnia F51.04 A ctive 556860414 Problem Psychophysiological insomnia F51.04 A ctive [id number] ALLERGIES No Information ENCOUNTERS Encounter Location Date Diagnosis [facility] [id number] [place] [address] 10 Jun, 2019 Thoracic back pain, unspecified back hao n laterality, unspecified chronicity M54.6 [address] [id number] [place] [address] 09 Jun, 2019 [address] [id number] [place] [address] 04 Jun, 2019 Anxiety F41.9 and Thoracic back pain, un specified back pain laterality, unspecified chronicity M54.6 [facility] [address] [address] Jun, [facility] [address] [address] May, [facility] [address] [address] May, Psychophysiologic insomnia F51.04 [facility] [address] [address] 13 May, 2019 Other constipation K59.09 [facility] [address] [address] 11 May, 2019 Thoracic back pain, unspecified back hao n laterality, unspecified chronicity M54.6 [address] [address] 06 May, 2019 Anxiety F41.9 and Thoracic back pain, un specified back pain laterality, unspecified chronicity M54.6 [address] [address] May, [facility] [address] [address] Apr, [facility] [address] [address] Apr, [facility] [address] [address] Apr, Psychophysiological insomnia F51.04 [facility] [address] [address] Apr, Thoracic back pain, unspecified back hao n laterality, unspecified chronicity M54.6 [facility] [address] [address] Apr, Thoracic back pain, unspecified back hao n laterality, unspecified chronicity M54.6 [facility] [address] [address] Apr, Anxiety F41.9 [address] [address] Apr, Psychophysiological insomnia F51.04 [address] [address] Mar, Encounter for Medicare annual wellness e xam Z00.00 ; HTN (hypertension) I10 ; Hyperlipidemia [...] both eyes, unspecified age-related cataract type H25.9 [address] [address] Mar, Thoracic back pain, unspecified back hao n laterality, unspecified chronicity M54.6 [address] [address] Mar, Psychophysiological insomnia F51.04 [address] [address] Mar, Thoracic back pain, unspecified back hao n laterality, unspecified chronicity M54.6 and Anxiety F41.9 [address] [address] Mar, Psychophysiological insomnia F51.04 [address] [address] Mar, [address] [address] Mar, Psychophysiological insomnia F51.04 [address] [address] Mar, [address] [address] Feb, [facility] [address] [address] Feb, Thoracic back pain, unspecified back hao n laterality, unspecified chronicity M54.6 [facility] [address] [address] Feb, Anxiety F41.9 and Thoracic back pain, un specified back pain laterality, unspecified chronicity M54.6 [facility] [address] [address] Feb, Insomnia G47.00 ; HTN (hypertension) I10 and Constipation K59.00 [address] [address] Feb, [facility] [address] [address] Jan, Thoracic back pain, unspecified back hao n laterality, unspecified chronicity M54.6 [address] [address] Jan, Anxiety F41.9 [address] [address] Jan, Anxiety F41.9 [address] [address] Jan, Anxiety F41.9 and Thoracic back pain, un specified back pain laterality, unspecified chronicity M54.6 [facility] [address] [address] Jan, [facility] [address] [address] Jan, [facility] [address] [address] Dec, Thoracic back pain, unspecified back hao n laterality, unspecified chronicity M54.6 [address] [address] Dec, Thoracic back pain, unspecified back hao n laterality, unspecified chronicity M54.6 [facility] [address] [address] Nov, Thoracic back pain, unspecified back hao n laterality, unspecified chronicity M54.6 [facility] [address] [address] Nov, Anxiety F41.9 and Thoracic back pain, un specified back pain laterality, unspecified chronicity M54.6 [facility] [address] [address] Nov, [facility] [address] [address] Nov, [facility] [address] [address] Nov, [facility] [address] [address] Oct, Thoracic back pain, unspecified back hao n laterality, unspecified chronicity M54.6 [facility] [address] [address] Oct, Anxiety F41.9 and Thoracic back pain, un specified back pain laterality, unspecified chronicity M54.6 [facility] [address] [address] Oct, Schizophrenia, unspecified type F20.9 an d Acute kidney injury N17.9 [facility] [address] [address] Oct, [facility] [address] [address] Oct, [facility] [address] [address] Oct, Thoracic back pain, unspecified back hao n laterality, unspecified chronicity M54.6 [facility] [address] [address] Oct, [facility] [address] [address] Oct, [facility] [address] [address] Sep, Anxiety F41.9 [facility] [address] [address] Sep, [facility] [address] [address] Sep, Thoracic back pain, unspecified back hao n laterality, unspecified chronicity M54.6 [facility] [address] [address] Sep, [facility] [address] [address] Sep, [facility] [address] [address] Sep, [facility] [address] [address] Sep, [facility] [address] [address] Sep, [facility] [address] [address] Sep, [facility] [address] [address] Sep, Chronic pain G89.29 ; Chronic kidney dis ease, stage III (moderate) N18.3 ; Hyperlipidemia E78.5 and Insomnia G47.00 [facility] [address] [address] Sep, Thoracic back pain, unspecified back hao n laterality, unspecified chronicity M54.6 [facility] [address] [address] August, Anxiety F41.9 [facility] [address] [address] August, Thoracic back pain, unspecified back hao n laterality, unspecified chronicity M54.6 and Anxiety F41.9 [facility] [address] [address] August, 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 [facility] [address] [address] August, 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 [facility] [address] [address] August, [facility] [address] [address] August, [facility] [address] [address] August, Thoracic back pain, unspecified back hao n laterality, unspecified chronicity M54.6 [facility] [address] [address] August, [facility] [address] [address] August, Anxiety F41.9 and Thoracic back pain, un specified back pain laterality, unspecified chronicity M54.6 [facility] [id number] [place] [address] Jul, [facility] [address] [address] Jul, Thoracic back pain, unspecified back hao n laterality, unspecified chronicity M54.6 [facility] [address] [address] Jun, Anxiety F41.9 and Thoracic back pain, un specified back pain laterality, unspecified chronicity M54.6 [facility] [id number] [place] [address] Jun, Anxiety F41.9 and Thoracic back pain, un specified back pain laterality, unspecified chronicity M54.6 [facility] [address] [address] 07 Jun, 2018 Thoracic back pain, unspecified back hao n laterality, unspecified chronicity M54.6 [address] [address] Jun, Anxiety F41.9 and Thoracic back pain, un specified back pain laterality, unspecified chronicity M54.6 [address] [address] May, [address] [address] May, [address] [address] May, [address] [address] 06 May, 2018 Anxiety F41.9 and Encounter for medicati on monitoring Z51.81 [address] [address] 05 May, 2018 Anxiety F41.9 and Thoracic back pain, un specified back pain laterality, unspecified chronicity M54.6 [address] [address] Apr, Hyperlipidemia 272.4 [address] [address] Apr, Chronic pain G89.29 ; Anxiety F41.9 ; Ce rvical radiculopathy M54.12 and Vision loss H54.7 [address] [address] Apr, [address] [address] Apr, Anxiety F41.9 and Thoracic back pain, un specified back pain laterality, unspecified chronicity M54.6 [address] [address] Mar, [id number] [address] Mar, Anxiety F41.9 and Thoracic back pain, un specified back pain laterality, unspecified chronicity M54.6 [facility] [address] [address] 14 Feb, 2018 Anxiety F41.9 and Thoracic back pain, un specified back pain laterality, unspecified chronicity M54.6 [address] [address] 07 Feb, 2018 Thoracic back pain, unspecified back hao n laterality, unspecified chronicity M54.6 [address] [address] 29 Jan, 2018 [address] [address] Jan, Anxiety F41.9 and Thoracic back pain, un specified back pain laterality, unspecified chronicity M54.6 [address] [address] 19 Dec, 2017 Diarrhea of presumed infectious origin R 19.7 [address] [address] 19 Dec, 2017 Diarrhea of presumed infectious origin R 19.7 [address] [address] 18 Dec, 2017 Thoracic back pain, unspecified back hao n laterality, unspecified chronicity M54.6 [address] [address] 17 Dec, 2017 [address] [address] 17 Dec, 2017 Anxiety F41.9 and Thoracic back pain, un specified back pain laterality, unspecified chronicity M54.6 [address] [address] 13 Dec, 2017 Diarrhea of presumed infectious origin R 19.7 [address] [address] 13 Dec, 2017 [address] [address] Dec, Anxiety F41.9 and Thoracic back pain, un specified back pain laterality, unspecified chronicity M54.6 [address] [address] Dec, Anxiety F41.9 and Thoracic back pain, un specified back pain laterality, unspecified chronicity M54.6 [facility] [employer] [address] [place] [id number] Dec, Diarrhea of presumed infectious origin R 19.7 ; Anxiety F41.9 ; Thoracic back pain, unspecified back pain laterality, unspecified chronicity M54.6 and HTN (hypertension) I10 [address] [address] Dec, Anxiety F41.9 [facility] [address] [place] [id number] Dec, Anxiety F41.9 ; Diarrhea of presumed inf ectious origin R19.7 ; Generalized abdominal pain R10.84 and Localized edema R60.0 [address] [address] Nov, [facility] [employer] [address] [place] [id number] Nov, Anxiety F41.9 ; Urinary retention R33.9 ; Diarrhea of presumed infectious origin R19.7 ; Weakness R53.1 ; Acute kidney failure, unspecified N17.9 ; Chronic kidney disease, stage III (moderate) N18.3 and Thoracic back pain, unspecified back pain laterality, unspecified chronicity M54.6 [address] [address] Oct, Thoracic back pain, unspecified back hao n laterality, unspecified chronicity M54.6 and Anxiety F41.9 [address] [address] Sep, Thoracic back pain, unspecified back hao n laterality, unspecified chronicity M54.6 and Anxiety F41.9 [address] [address] Sep, Thoracic back pain, unspecified back hao n laterality, unspecified chronicity M54.6 ; Anxiety F41.9 and Encounter for medication monitoring Z51.81 [address] [address] August, [address] [address] August, Thoracic back pain, unspecified back hao n laterality, unspecified chronicity M54.6 and Anxiety F41.9 [address] [address] August, Hyperlipidemia E78.5 and HTN (hypertensi on) I10 [address] [address] August, [address] [address] August, Medicare welcome exam Z00.00 ; Chronic k idney failure N18.9 ; Anxiety F41.9 ; Chronic pain G89.29 ; Insomnia G47.00 ; Hyperlipidemia E78.5 ; HTN (hypertension) I10 and Thoracic back pain, unspecified back pain laterality, unspecified chronicity M54.6 [address] [address] Jul, [address] [address] Jul, [address] [address] Jul, [address] [address] Jul, Anxiety F41.9 [address] [address] Jul, Thoracic back pain, unspecified back hao n laterality, unspecified chronicity M54.6 and Anxiety F41.9 [address] [address] Jun, Thoracic back pain, unspecified back hao n laterality, unspecified chronicity M54.6 and Anxiety F41.9 [address] [address] May, Thoracic back pain, unspecified back hao n laterality, unspecified chronicity M54.6 and Anxiety F41.9 [address] [address] Apr, Thoracic back pain, unspecified back hao n laterality, unspecified chronicity M54.6 and Anxiety F41.[address] [address] Mar, [address] [address] Mar, Thoracic back pain, unspecified back hao n laterality, unspecified chronicity M54.6 and Anxiety F41.[address] [address] Mar, Thoracic back pain, unspecified back hao n laterality, unspecified chronicity M54.6 ; HTN (hypertension) I10 ; Hyperlipidemia E78.5 and Anxiety F41.[address] [address] Feb, Thoracic back pain, unspecified back hao n laterality, unspecified chronicity M54.6 and Anxiety F41.[address] [address] Nov, [address] [address] Oct, [address] [address] Oct, Thoracic back pain, unspecified back hao n laterality, unspecified chronicity M54.6 [facility] [address] [address] Oct, HTN (hypertension) I10 ; Constipation K5 9.00 ; Hyperlipidemia E78.5 ; Thoracic back pain, unspecified back pain laterality, unspecified chronicity M54.6 ; Chronic pain G89.29 ; Anxiety F41.9 ; Chronic kidney failure N18.9 ; Environmental allergies Z91.09 ; Vitamin D deficiency E55.9 and Primary insomnia F51.01 [address] [address] Sep, Anxiety F41.9 [address] [address] Sep, [address] [address] August, Anxiety F41.9 [address] [address] August, [address] [address] Jul, Anxiety F41.9 [address] [address] Jul, [address] [address] Jun, Anxiety F41.9 [address] [address] Jun, [address] [address] May, [address] [address] May, [address] [address] May, [address] [address] Apr, [facility] [id number] [place] [address] Apr, [facility] [address] [address] Apr, Anxiety F41.9 [facility] [address] [address] Apr, Anxiety F41.9 [facility] [address] [address] Apr, [facility] [address] [address] Mar, HTN (hypertension) I10 ; Tremor R25.1 ; Hypercholesterolemia E78.0 ; Constipation K59.00 ; Chronic pain G89.29 ; Hyperlipidemia E78.5 ; Insomnia G47.00 ; Anxiety F41.9 and Thoracic back pain, unspecified back pain laterality, unspecified chronicity M54.6 [facility] [address] [address] Mar, Tremor R25.1 ; HTN (hypertension) I10 ; Hypercholesterolemia E78.0 ; Constipation K59.00 ; Chronic pain G89.29 ; Hyperlipidemia E78.5 ; Insomnia G47.00 ; Anxiety F41.9 and Thoracic back pain, unspecified back pain laterality, unspecified chronicity M54.6 [facility] [address] [address] Mar, [facility] [address] [address] Mar, [facility] [address] [address] Feb, [facility] [address] [address] Jan, [facility] [address] [address] Jan, [facility] [address] [address] Dec, [facility] [address] [address] Nov, [facility] [address] [address] Nov, [facility] [address] [address] Oct, Anxiety F41.9 [facility] [address] [address] Oct, Chronic pain G89.29 [facility] [address] [address] Sep, [facility] [address] [address] Sep, [facility] [address] [address] Sep, [facility] [address] [address] Sep, [facility] [address] [address] Sep, Chronic pain syndrome G89.4 [facility] [address] [address] Sep, HTN (hypertension) I10 ; Chronic pain G8 9.29 ; Hypercholesterolemia E78.0 ; Chronic kidney failure N18.9 ; Constipation, unspecified constipation type K59.00 ; Anxiety F41.9 and Thoracic back pain, unspecified back pain laterality, unspecified chronicity M54.6 [facility] [address] [address] August, Chronic pain syndrome G89.4 [facility] [address] [address] August, Chronic pain syndrome G89.4 [facility] [address] [address] Jul, Anxiety disorder, unspecified F41.9 and Chronic pain syndrome G89.4 [facility] [address] [address] Jul, Insomnia, unspecified G47.00 and Chronic pain syndrome G89.4 [facility] [address] [address] Jul, Allergic rhinitis J30.9 [facility] [address] [address] Jul, Constipation, unspecified K59.00 [facility] [address] [address] Jul, [facility] [address] [address] Jun, [facility] [address] [address] Jun, [facility] [address] [address] Jun, [facility] [address] [address] Jun, [facility] [address] [address] Jun, [facility] [address] [address] Jun, [facility] [address] [address] May, [facility] [address] [address] May, [facility] [address] [address] May, Anxiety F41.9 ; Insomnia G47.00 ; Hyperl ipidemia E78.5 ; Chronic pain G89.29 ; HTN (hypertension) I10 ; Environmental allergies V15.09 and Constipation 564.00 [facility] [address] [address] Apr, [facility] [id number] [place] [address] Apr, [facility] [address] [address] Apr, [facility] [address] [address] Mar, [facility] [address] [address] Mar, [facility] [address] [address] Mar, [facility] [address] [address] Feb, [facility] [address] [address] Feb, [facility] [address] [address] Feb, [facility] [address] [address] Jan, HTN (hypertension) I10 ; Constipation K5 9.00 ; Chronic pain G89.29 ; Hyperlipidemia E78.5 ; Hypercholesterolemia E78.0 ; Insomnia G47.00 and Anxiety F41.9 [facility] [address] [address] Jan, [facility] [address] [address] Dec, [facility] [address] [address] Nov, [facility] [address] [address] Oct, Chronic kidney disease, unspecified 585. 9 ; Chronic pain syndrome 338.4 ; Hyperlipidemia 272.4 and Essential hypertension 401.9 [facility] [address] [address] Oct, Chronic kidney disease 585.9 [facility] [id number] [place] [address] Oct, [facility] [address] [address] Oct, Chronic kidney disease, unspecified 585. 9 ; Hypercalcemia 275.42 ; Hyperlipidemia 272.4 ; Essential hypertension 401.9 ; Chronic pain syndrome 338.4 ; Insomnia 780.52 ; Constipation 564.00 ; Environmental allergies V15.09 and Anxiety 300.00 [facility] [id number] [place] [address] Oct, Chronic kidney disease 585.9 [facility] [address] [address] Oct, [facility] [address] [address] Oct, Chronic kidney disease 585.9 and Hyperli pidemia 272.4 [facility] [id number] [place] [address] Oct, [facility] [address] [address] Oct, [facility] [address] [address] Sep, [facility] [address] [address] Sep, [facility] [address] [address] Sep, Chronic kidney disease 585.9 and Hyperli pidemia 272.4 [facility] [id number] [place] [address] Sep, [facility] [id number] [place] [address] August, [facility] [address] [address] August, [facility] [place] [facility] [address] [id number] [place] [address] 14 Jul, 2014 [facility] [place] [facility] [address] [id number] [place] [address] 13 Jul, 2014 [facility] [place] [facility] [address] [id number] [place] [address] Jun, [facility] [place] [facility] [address] [id number] [place] [address] Jun, [facility] [place] [facility] [address] [id number] [place] [address] Jun, [facility] [place] [facility] [address] [id number] [place] [address] Jun, [facility] [place] [facility] [address] [id number] [place] [address] Jun, [facility] [place] [facility] [address] [id number] [place] [address] Jun, [facility] [place] [facility] [address] [id number] [place] [address] Jun, [facility] [place] [facility] [address] [id number] [place] [address] Jun, [facility] [place] [facility] [address] [id number] [place] [address] 16 May, 2014 [facility] [place] [facility] [address] [id number] [place] [address] 16 May, 2014 [facility] [place] [facility] [address] [id number] [place] [address] May, 2014 [facility] [place] [facility] [address] [id number] [place] [address] May, [facility] [place] [facility] [address] [id number] [place] [address] Apr, [facility] [place] [facility] [address] [id number] [place] [address] Apr, [facility] [place] [facility] [address] [id number] [place] [address] Apr, [facility] [place] [facility] [address] [facility] [id number] [place] [address] Apr, [facility] [place] [facility] [address] [id number] [place] [address] Apr, [facility] [place] [facility] [address] [id number] [place] [address] Apr, [facility] [place] [facility] [address] [id number] [place] [address] Apr, [facility] [place] [facility] [address] [id number] [place] [address] Apr, [facility] [place] [facility] [address] [id number] [place] [address] Apr, [facility] [place] [facility] [address] [id number] [place] [address] Apr, [facility] [place] [facility] [address] [id number] [place] [address] Apr, [facility] [place] [facility] [address] [id number] [place] [address] Mar, [facility] [place] [facility] [address] [id number] [place] [address] Mar, [facility] [place] [facility] [address] [id number] [place] [address] Feb, [facility] [place] [facility] [address] [id number] [place] [address] Feb, [facility] [place] [facility] [address] [id number] [place] [address] Feb, [facility] [place] [facility] [address] [id number] [place] [address] Feb, [facility] [place] [facility] [address] [id number] [place] [address] Feb, [facility] [place] [facility] [address] [id number] [place] [address] Feb, [facility] [place] [facility] [address] [id number] [place] [address] Feb, [facility] [place] [facility] [address] [id number] [place] [address] Feb, [facility] [place] [facility] [address] [id number] [place] [address] Feb, [facility] [place] [facility] [address] [id number] [place] [address] Feb, [facility] [place] [facility] [address] [id number] [place] [address] Jan, [facility] [place] [facility] [address] [id number] [place] [address] Jan, [facility] [place] [facility] [address] [id number] [place] [address] Jan, [facility] [place] [facility] [address] [id number] [place] [address] Jan, [facility] [place] [facility] [address] [id number] [place] [address] Jan, [facility] [place] [facility] [address] [id number] [place] [address] Jan, [facility] [place] [facility] [address] [id number] [place] [address] Jan, [facility] [place] [facility] [address] [id number] [place] [address] Jan, [facility] [place] [facility] [address] [id number] [place] [address] Jan, [facility] [place] [facility] [address] [id number] [place] [address] Jan, [facility] [place] [facility] [address] [id number] [place] [address] Jan, [facility] [place] [facility] [address] [id number] [place] [address] Dec, [facility] [place] [facility] [address] [id number] [place] [address] Dec, [facility] [place] [facility] [address] [id number] [place] [address] Dec, 2013 [facility] [place] [facility] [address] [facility] [id number] [place] [address] Dec, 2013 [facility] [place] [facility] [address] [id number] [place] [address] Dec, 2013 [facility] [place] [facility] [address] [id number] [place] [address] Dec, 2013 [facility] [place] [facility] [address] [facility] [id number] [place] [address] Dec, 2013 [facility] [place] [facility] [address] [id number] [place] [address] Dec, 2013 [facility] [place] [facility] [address] [id number] [place] [address] Nov, [facility] [place] [facility] [address] [id number] [place] [address] Nov, [facility] [place] [facility] [address] [id number] [place] [address] Nov, [facility] [place] [facility] [address] [id number] [place] [address] Nov, [facility] [place] [facility] [address] [id number] [place] [address] Nov, [facility] [place] [facility] [address] [id number] [place] [address] Nov, [facility] [place] [facility] [address] [id number] [place] [address] Nov, [facility] [place] [facility] [address] [id number] [place] [address] Nov, [facility] [place] [facility] [address] [id number] [place] [address] Oct, [facility] [place] [facility] [address] [id number] [place] [address] Oct, [facility] [place] [facility] [address] [id number] [place] [address] Oct, [facility] [place] [facility] [address] [facility] [id number] [place] [address] Oct, [facility] [place] [facility] [address] [facility] [id number] [place] [address] Sep, [facility] [place] [facility] [address] [id number] [place] [address] Sep, [facility] [place] [facility] [address] [id number] [facility] [address] Sep, [facility] [place] [facility] [address] [facility] [id number] [facility] [address] Sep, [facility] [place] [facility] [address] [id number] [place] [address] Sep, [facility] [place] [facility] [address] [id number] [place] [address] Sep, [facility] [place] [facility] [address] [id number] [place] [address] Sep, [facility] [place] [facility] [address] [id number] [place] [address] Sep, [facility] [place] [facility] [address] [id number] [place] [address] August, [facility] [place] [facility] [address] [id number] [place] [address] August, [facility] [place] [facility] [address] [id number] [place] [address] August, [facility] [place] [facility] [address] [id number] [place] [address] August, [facility] [place] [facility] [address] [id number] [place] [address] August, [facility] [place] [facility] [address] [id number] [place] [address] August, [facility] [place] [facility] [address] [id number] [place] [address] August, [facility] [place] [facility] [address] [id number] [facility] [address] August, [facility] [place] [facility] [address] [facility] [id number] [place] [address] August, [facility] [place] [facility] [address] [id number] [place] [address] August, [facility] [place] [facility] [address] [id number] [place] [address] Jul, [facility] [place] [facility] [address] [id number] [place] [address] Jul, [facility] [place] [facility] [address] [id number] [place] [address] Jul, [facility] [place] [facility] [address] [id number] [place] [address] Jul, [facility] [place] [facility] [address] [id number] [place] [address] Jul, [facility] [place] [facility] [address] [id number] [place] [address] Jul, [facility] [place] [facility] [address] [id number] [place] [address] Jul, [facility] [place] [facility] [address] [id number] [place] [address] Jul, [facility] [place] [facility] [address] [id number] [place] [address] Jun, [facility] [place] [facility] [address] [id number] [place] [address] Jun, [facility] [place] [facility] [address] [id number] [place] [address] Jun, [facility] [place] [facility] [address] [id number] [place] [address] Jun, [facility] [place] [facility] [address] [id number] [place] [address] Jun, [facility] [place] [facility] [address] [id number] [place] [address] Jun, [facility] [place] [facility] [address] [facility] [id number] [place] [address] May, [facility] [place] [facility] [address] [facility] [id number] [place] [address] May, [facility] [place] [facility] [address] [facility] [id number] [place] [address] May, [facility] [place] [facility] [address] [id number] [place] [address] May, [facility] [place] [facility] [address] [facility] [id number] [place] [address] May, [facility] [place] [facility] [address] [id number] [place] [address] May, [facility] [place] [facility] [address] [id number] [place] [address] May, [facility] [place] [facility] [address] [id number] [place] [address] Apr, [facility] [place] [facility] [address] [id number] [place] [address] Apr, [facility] [place] [facility] [address] [id number] [place] [address] Apr, [facility] [place] [facility] [address] [id number] [place] [address] Apr, [facility] [place] [facility] [address] [id number] [place] [address] Apr, [facility] [place] [facility] [address] [id number] [place] [address] Apr, [facility] [place] [facility] [address] [id number] [place] [address] Mar, [facility] [place] [facility] [address] [facility] [id number] [place] [address] Mar, [facility] [place] [facility] [address] [id number] [place] [address] Mar, [facility] [place] [facility] [address] [id number] [place] [address] Mar, [facility] [place] [facility] [address] [id number] [place] [address] Mar, [facility] [place] [facility] [address] [id number] [place] [address] Mar, [facility] [place] [facility] [address] [id number] [place] [address] Mar, [facility] [place] [facility] [address] [id number] [place] [address] Mar, [facility] [place] [facility] [address] [id number] [place] [address] Mar, [facility] [place] [facility] [address] [id number] [place] [address] Mar, [facility] [place] [facility] [address] [id number] [place] [address] Feb, [facility] [place] [facility] [address] [id number] [place] [address] Feb, [facility] [place] [facility] [address] [id number] [place] [address] Feb, [facility] [place] [facility] [address] [id number] [place] [address] Feb, [facility] [place] [facility] [address] [id number] [place] [address] 14 Feb, 2013 [facility] [place] [facility] [address] [id number] [place] [address] 14 Feb, 2013 [facility] [place] [facility] [address] [id number] [place] [address] Feb, [facility] [place] [facility] [address] [id number] [place] [address] 11 Feb, 2013 [facility] [place] [facility] [address] [id number] [place] [address] 08 Feb, 2013 [facility] [place] [facility] [address] [id number] [place] [address] 08 Feb, 2013 [facility] [place] [facility] [address] [facility] [id number] [place] [address] Jan, [facility] [place] [facility] [address] [facility] [id number] [place] [address] Jan, [facility] [place] [facility] [address] [id number] [place] [address] Jan, [facility] [place] [facility] [address] [id number] [place] [address] Jan, [facility] [place] [facility] [address] [facility] [id number] [place] [address] Jan, [facility] [place] [facility] [address] [facility] [id number] [place] [address] Jan, [facility] [place] [facility] [address] [id number] [place] [address] Jan, [facility] [place] [facility] [address] [id number] [place] [address] Jan, [facility] [place] [facility] [address] [id number] [place] [address] Jan, [facility] [place] [facility] [address] [id number] [place] [address] 25 Dec, 2012 [facility] [place] [facility] [address] [id number] [place] [address] Dec, [facility] [place] [facility] [address] [id number] [place] [address] Dec, [facility] [place] [facility] [address] [id number] [place] [address] 13 Dec, 2012 [facility] [place] [facility] [address] [facility] [id number] [place] [address] Nov, [facility] [place] [facility] [address] [id number] [place] [address] Nov, [facility] [place] [facility] [address] [id number] [place] [address] Nov, [facility] [place] [facility] [address] [id number] [place] [address] Nov, [facility] [place] [facility] [address] [id number] [facility] [address] Nov, [facility] [place] [facility] [address] [facility] [id number] [facility] [place] [address] Nov, [facility] [place] [facility] [address] [facility] [id number] [facility] [place] [address] Oct, [facility] [place] [facility] [address] [id number] [facility] [address] Oct, [facility] [place] [facility] [address] [facility] [id number] [facility] [place] [address] Oct, [facility] [place] [facility] [address] [id number] [place] [address] Oct, [facility] [place] [facility] [address] [id number] [place] [address] Sep, [facility] [place] [facility] [address] [id number] [place] [address] Sep, [facility] [place] [facility] [address] [facility] [id number] [place] [address] Sep, [facility] [place] [facility] [address] [id number] [place] [address] Sep, [facility] [place] [facility] [address] [id number] [place] [address] Sep, [facility] [place] [facility] [address] [id number] [place] [address] August, [facility] [place] [facility] [address] [facility] [id number] [place] [address] August, [facility] [place] [facility] [address] [id number] [place] [address] Jul, [facility] [place] [facility] [address] [facility] [id number] [place] [address] Jul, [facility] [place] [facility] [address] [id number] [place] [address] 15 Jul, 2012 [facility] [place] [facility] [address] [id number] [place] [address] 09 Jul, 2012 [facility] [address] [id number] [place] [address] Jul, [facility] [place] [facility] [address] [id number] [place] [address] 26 Jun, 2012 [facility] [place] [facility] [address] [id number] [place] [address] Jun, [facility] [place] [facility] [address] [id number] [place] [address] 15 Jun, 2012 [facility] [place] [facility] [address] [id number] [place] [address] Jun, [facility] [place] [facility] [address] [id number] [place] [address] Jun, [facility] [place] [facility] [address] [id number] [place] [address] May, [facility] [place] [facility] [address] [id number] [place] [address] May, [facility] [place] [facility] [address] [id number] [place] [address] May, [facility] [place] [facility] [address] [id number] [place] [address] May, [facility] [place] [facility] [address] [id number] [place] [address] 20 May, 2012 [facility] [place] [facility] [address] [id number] [place] [address] 14 May, 2012 [facility] [place] [facility] [address] [id number] [place] [address] 13 May, 2012 [facility] [place] [facility] [address] [id number] [place] [address] 08 May, 2012 [facility] [place] [facility] [address] [id number] [place] [address] 04 May, 2012 [facility] [place] [facility] [address] [id number] [place] [address] Apr, [facility] [address] [facility] [id number] [place] [address] Apr, [facility] [address] [id number] [place] [address] Apr, [facility] [address] [id number] [place] [address] Apr, [facility] [address] [id number] [place] [address] Apr, [facility] [address] [id number] [place] [address] Mar, [facility] [address] [id number] [place] [address] Mar, [facility] [address] [id number] [place] [address] Mar, [facility] [address] [id number] [place] [address] Mar, [facility] [address] [id number] [place] [address] Mar, [facility] [address] [id number] [place] [address] Mar, [facility] [address] [id number] [place] [address] Mar, [facility] [address] [id number] [place] [address] Mar, [facility] [address] [id number] [place] [address] Mar, [facility] [address] [id number] [place] [address] Mar, [facility] [address] [id number] [place] [address] Feb, [facility] [address] [id number] [place] [address] Feb, [facility] [address] [id number] [place] [address] Feb, [facility] [address] [id number] [place] [address] Feb, [facility] [address] [id number] [place] [address] Feb, [facility] [address] [id number] [place] [address] Feb, [facility] [address] [id number] [place] [address] Feb, [facility] [address] [id number] [place] [address] Feb, [facility] [address] [id number] [place] [address] Feb, [facility] [address] [id number] [place] [address] Feb, [facility] [address] [id number] [place] [address] Feb, [facility] [address] [id number] [place] [address] Feb, [facility] [address] [id number] [place] [address] Feb, [facility] [address] [id number] [place] [address] Feb, [facility] [address] [id number] [place] [address] Feb, [facility] [address] [id number] [place] [address] Feb, [facility] [id number] [place] [address] Feb, [facility] [address] [id number] [place] [address] Feb, [facility] [address] [id number] [place] [address] Jan, [facility] [address] [id number] [place] [address] Jan, [facility] [address] [id number] [place] [address] Jan, [facility] [address] [id number] [place] [address] Jan, [facility] [address] [id number] [place] [address] Jan, [facility] [address] [id number] [place] [address] Jan, [facility] [address] [id number] [place] [address] Jan, [facility] [address] [id number] [place] [address] Jan, [facility] [address] [id number] [place] [address] Jan, [facility] [address] [id number] [place] [address] Jan, [facility] [address] [id number] [place] [address] 24 Dec, 2011 [facility] [address] [id number] [place] [address] 18 Dec, 2011 [facility] [address] [id number] [place] [address] Dec, [facility] [address] [id number] [place] [address] 04 Dec, 2011 [facility] [address] [id number] [place] [address] Nov, [facility] [address] [id number] [place] [address] Nov, [facility] [address] [id number] [place] [address] Nov, [facility] [address] [id number] [place] [address] Nov, [facility] [address] [facility] [id number] [place] [address] Nov, [facility] [address] [facility] [id number] [place] [address] Nov, [facility] [address] [id number] [place] [address] Oct, [facility] [address] [id number] [place] [address] Oct, [facility] [address] [facility] [id number] [place] [address] Oct, [facility] [address] [id number] [place] [address] Oct, [facility] [address] [id number] [place] [address] Oct, [facility] [address] [id number] [place] [address] Sep, [facility] [address] [id number] [place] [address] Sep, [facility] [address] [id number] [place] [address] Sep, [facility] [address] [id number] [place] [address] Sep, [facility] [address] [id number] [place] [address] Sep, [facility] [address] [id number] [place] [address] August, [facility] [address] [id number] [place] [address] August, [facility] [address] [id number] [place] [address] August, [facility] [address] [id number] [place] [address] August, [facility] [address] [id number] [place] [address] 27 Jul, 2011 [facility] [address] [id number] [facility] [place] [address] 24 Jul, 2011 [facility] [address] [id number] [place] [address] 19 Jul, 2011 [facility] [address] [id number] [facility] [place] [address] Jul, [facility] [address] [id number] [place] [address] 18 Jul, 2011 [facility] [address] [id number] [place] [address] Jul, [facility] [address] [id number] [place] [address] 11 Jul, 2011 [facility] [address] [id number] [place] [address] 10 Jul, 2011 [facility] [address] [id number] [place] [address] 09 Jul, 2011 [facility] [address] [id number] [place] [address] 07 Jul, 2011 [facility] [address] [id number] [place] [address] 05 Jul, 2011 [facility] [address] [id number] [place] [address] 03 Jul, 2011 [facility] [address] [id number] [place] [address] Jul, [facility] [address] [id number] [place] [address] Jul, [facility] [address] [id number] [place] [address] 28 Jun, 2011 [facility] [address] [id number] [place] [address] 27 Jun, 2011 [facility] [address] [id number] [place] [address] 20 Jun, 2011 [facility] [address] [id number] [place] [address] Jun, [facility] [address] [id number] [place] [address] May, [facility] [address] [id number] [place] [address] May, [facility] [address] [id number] [place] [address] May, [facility] [address] [id number] [place] [address] Apr, [facility] [address] [id number] [place] [address] Apr, [facility] [address] [id number] [place] [address] Apr, [facility] [id number] [place] [address] Apr, [facility] [address] [id number] [place] [address] Apr, [facility] [address] [id number] [place] [address] Mar, [facility] [address] [id number] [place] [address] Mar, [facility] [address] [id number] [place] [address] Mar, [facility] [address] [id number] [place] [address] Mar, [facility] [address] [id number] [place] [address] Mar, [facility] [address] [id number] [place] [address] Mar, [facility] [address] [id number] [place] [address] Mar, [facility] [address] [id number] [place] [address] 29 Feb, 2011 [facility] [address] [id number] [place] [address] Feb, [facility] [address] [id number] [place] [address] Feb, [facility] [address] [id number] [place] [address] Feb, [facility] [address] [id number] [place] [address] 16 Feb, 2011 [facility] [address] [id number] [place] [address] 14 Feb, 2011 [facility] [address] [id number] [place] [address] 10 Feb, 2011 [facility] [address] [id number] [place] [address] 31 Jan, 2011 [facility] [address] [id number] [place] [address] 31 Jan, 2011 [facility] [address] [id number] [place] [address] 31 Jan, 2011 [facility] [address] [id number] [place] [address] 18 Jan, 2011 [facility] [address] [id number] [place] [address] 17 Jan, 2011 [facility] [address] [id number] [place] [address] 17 Jan, 2011 [facility] [address] [id number] [place] [address] 17 Jun, 2010 [facility] [address] [id number] [place] [address] 30 Mar, 2010 [facility] [address] [id number] [place] [address] 20 Mar, 2010 [facility] [address] [id number] [place] [address] 14 Mar, 2010 [facility] [address] [id number] [place] [address] 14 Mar, 2010 [facility] [address] [id number] [place] [address] 13 Mar, 2010 [facility] [address] [id number] [place] [address] 07 Mar, 2010 [facility] [address] [id number] [place] [address] 02 Mar, 2010 [facility] [address] [id number] [place] [address] Mar, [facility] [address] [id number] [place] [address] 30 Feb, 2010 [facility] [address] [id number] [place] [address] 29 Feb, 2010 [facility] [address] [id number] [place] [address] 17 Feb, 2010 [facility] [address] [id number] [place] [address] 17 Feb, 2010 [facility] [address] [id number] [place] [address] 16 Feb, 2010 [facility] [address] [id number] [place] [address] 08 Feb, 2010 [facility] [address] [id number] [place] [address] Feb, [facility] [address] [id number] [place] [address] Feb, [facility] [address] [id number] [place] [address] 28 Jan, 2010 [facility] [id number] [place] [address] Jan, [facility] [address] [id number] [place] [address] Jan, [facility] [address] [id number] [place] [address] Jan, [facility] [address] [id number] [place] [address] Mar, [facility] [address] [id number] [place] [address] Mar, [facility] [address] [id number] [place] [address] Mar, [facility] [id number] [place] [address] Mar, [facility] [id number] [place] [address] Mar, [facility] [id number] [place] [address] Mar, [facility] [id number] [place] [address] Feb, [facility] [id number] [place] [address] Feb, [facility] [address] [id number] [place] [address] Jan, [facility] [id number] [place] [address] Sep, [facility] [address] [id number] [place] [address] May, IMMUNIZATIONS No Known Immunizations SOCIAL HISTORY [...] Surgical History Left ear surgery Hospitalization History [facility] in [place]- Spontane ous Pneumothorax Hospitalization History [facility]- Colon resection Hospitalization History [facility] - diarrhea/ couldnt urin ate nov 2017 Hospitalization History pain /hip to foot right side 10/16/19 19
[2019-08-28] MEDS ORDERED: LACTATED RINGERS 1,000 ML IV ONE ×2 (08:53→10:43)
--- OUTSIDE RECORDS SUMMARY | 2019-08-28 08:53 | XMS REPORT ---
Author Author Dixon MARIE Organization [facility] [place] Address [address] [place] [address] Care Team Providers Care Jinriksha Driver Name Role Phone NANCY MARIE Unavailable PROBLEMS Type Condition ICD9-CM Code HAW13-QE Code Onset Dates Condition S tatus SNOMED Code Problem Insomnia G47.00 Active 343500263 Problem Anxiety F41.9 Active 52640679 Problem HTN (hypertension) I10 Active 3 5384133 Problem Chronic pain G89.29 Active 6304263 1 Problem Constipation K59.00 Active 7530176 8 Problem Thoracic back pain, unspecif ied back pain laterality, unspecified chronicity M54.6 Active 447070201 Problem Hyperlipidemia E78.5 Active 90958 004 Problem Vitamin D deficiency E55.9 Active 49462400 Problem Chronic kidney disease, stage III (moderate) N18.3 Active 514644103 Problem Vision loss H54.7 Active 10922147 1 Problem Age-related cataract of both eyes, unspecified age-related cataract type H25.9 Active 26699236 Problem Primary insomnia F51.01 Active 397 2004 Problem Psychophysiologic insomnia F51.04 Act saúl 853843300 Problem Environmental allergies Z91.09 Active 480099026 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 83086428 Problem Schizophrenia, unspecified type F20.9 Active 94600596 Problem Psychophysiological insomnia F51.04 A ctive 640713489 Problem Psychophysiological insomnia F51.04 A ctive [id number] ALLERGIES No Information ENCOUNTERS Encounter Location Date Diagnosis [facility], [place] [id number] [place] [address] 10 Jun, 2019 Thoracic back pain, unspecified back hao n laterality, unspecified chronicity M54.6 [facility] [place] [address] [id number] [place] [address] Jun, [facility] [place] [address] [address] 04 Jun, 2019 Anxiety F41.9 and Thoracic back pain, un specified back pain laterality, unspecified chronicity M54.6 [facility] [place] [address] [address] 04 Jun, 2019 [facility] [place] [address] [address] May, [facility] [place] [address] [address] May, Psychophysiologic insomnia F51.04 [place] [address] [address] 13 May, 2019 Other constipation K59.09 [place] [address] [address] 11 May, 2019 Thoracic back pain, unspecified back hao n laterality, unspecified chronicity M54.6 [place] [address] [address] 06 May, 2019 Anxiety F41.9 and Thoracic back pain, un specified back pain laterality, unspecified chronicity M54.6 [place] [address] [address] May, [facility] [place] [address] [address] Apr, [place] [address] [address] Apr, [facility] [place] [address] [address] Apr, Psychophysiological insomnia F51.04 [facility] [place] [address] [address] 15 Apr, 2019 Thoracic back pain, unspecified back hao n laterality, unspecified chronicity M54.6 [facility] [place] [address] [address] Apr, Thoracic back pain, unspecified back hao n laterality, unspecified chronicity M54.6 [place] [address] [address] Apr, Anxiety F41.9 [place] [address] [address] Apr, Psychophysiological insomnia F51.04 [place] [address] [address] Mar, Encounter for Medicare annual wellness e [...] unspecified age-related cataract type H25.9 [place] [address] [address] Mar, Thoracic back pain, unspecified back hao n laterality, unspecified chronicity M54.6 [place] [address] [address] Mar, Psychophysiological insomnia F51.04 [place] [address] [address] Mar, Thoracic back pain, unspecified back hao n laterality, unspecified chronicity M54.6 and Anxiety F41.9 [place] [address] [address] Mar, Psychophysiological insomnia F51.04 [place] [address] [address] Mar, [place] [address] [address] Mar, Psychophysiological insomnia F51.04 [place] [address] [address] Mar, [facility] [place] [address] [address] Feb, [facility] [place] [address] [id number] Feb, Thoracic back pain, unspecified back hao n laterality, unspecified chronicity M54.6 [facility] [place] [address] [address] Feb, Anxiety F41.9 and Thoracic back pain, un specified back pain laterality, unspecified chronicity M54.6 [place] [address] [address] Feb, Insomnia G47.00 ; HTN (hypertension) I10 and Constipation K59.00 [place] [address] [address] Feb, [facility] [place] [address] [address] Jan, Thoracic back pain, unspecified back hao n laterality, unspecified chronicity M54.6 [place] [address] [address] Jan, Anxiety F41.9 [facility] [place] [address] [address] Jan, Anxiety F41.9 [facility] [place] [address] [address] Jan, Anxiety F41.9 and Thoracic back pain, un specified back pain laterality, unspecified chronicity M54.6 [facility] [place] [address] [address] Jan, [facility] [place] [address] [address] Jan, [facility] [place] [address] [address] Dec, Thoracic back pain, unspecified back hao n laterality, unspecified chronicity M54.6 [facility] [place] [address] [address] Dec, Thoracic back pain, unspecified back hao n laterality, unspecified chronicity M54.6 [facility] [place] [address] [address] Nov, Thoracic back pain, unspecified back hao n laterality, unspecified chronicity M54.6 [facility] [place] [address] [address] Nov, Anxiety F41.9 and Thoracic back pain, un specified back pain laterality, unspecified chronicity M54.6 [facility] [place] [address] [address] Nov, [facility] [place] [address] [address] Nov, [facility] [place] [address] [address] Nov, [facility] [place] [address] [address] Oct, Thoracic back pain, unspecified back hao n laterality, unspecified chronicity M54.6 [facility] [place] [address] [address] Oct, Anxiety F41.9 and Thoracic back pain, un specified back pain laterality, unspecified chronicity M54.6 [facility] [place] [address] [address] Oct, Schizophrenia, unspecified type F20.9 an d Acute kidney injury N17.9 [facility] [place] [address] [address] Oct, [facility] [place] [address] [address] Oct, [facility] [place] [address] [address] Oct, Thoracic back pain, unspecified back hao n laterality, unspecified chronicity M54.6 [facility] [place] [address] [address] Oct, [facility] [place] [address] [address] Oct, [facility] [place] [address] [address] Sep, Anxiety F41.9 [facility] [place] [address] [address] Sep, [facility] [place] [address] [address] Sep, Thoracic back pain, unspecified back hao n laterality, unspecified chronicity M54.6 [facility] [place] [address] [address] Sep, [facility] [place] [address] [address] Sep, [facility] [place] [address] [address] Sep, [facility] [place] [address] [address] Sep, [facility] [place] [address] [address] Sep, [facility] [place] [address] [address] Sep, [facility] [place] [address] [address] Sep, Chronic pain G89.29 ; Chronic kidney dis ease, stage III (moderate) N18.3 ; Hyperlipidemia E78.5 and Insomnia G47.00 [facility] [place] [address] [address] Sep, Thoracic back pain, unspecified back hao n laterality, unspecified chronicity M54.6 [facility] [place] [address] [address] August, Anxiety F41.9 [facility] [place] [address] [address] August, Thoracic back pain, unspecified back hao n laterality, unspecified chronicity M54.6 and Anxiety F41.9 [facility] [place] [address] [address] August, 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 [facility] [place] [address] [address] August, 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6 [facility] [place] [address] [address] Jul, [facility] [place] [address] [address] Jul, Thoracic back pain, unspecified back hao n laterality, unspecified chronicity M54.6 [facility] [place] [address] [address] Jun, Anxiety F41.9 and Thoracic back pain, un specified back pain laterality, unspecified chronicity M54.6 [facility] [place] [address] [address] Jun, Anxiety F41.9 and Thoracic back pain, un specified back pain laterality, unspecified chronicity M54.6 [facility] [place] [address] [address] Jun, Thoracic back pain, unspecified back hao n laterality, unspecified chronicity M54.6 [place] [address] [address] Jun, Anxiety F41.9 and Thoracic back pain, un specified back pain laterality, unspecified chronicity M54.6 [place] [address] [address] May, [place] [address] [address] May, [place] [address] [address] May, [place] [address] [address] May, Anxiety F41.9 and Encounter for medicati on monitoring Z51.81 [place] [address] [address] 05 May, 2018 Anxiety F41.9 and Thoracic back pain, un specified back pain laterality, unspecified chronicity M54.6 [place] [address] [address] Apr, Hyperlipidemia 272.4 [place] [address] [address] Apr, Chronic pain G89.29 ; Anxiety F41.9 ; Ce rvical radiculopathy M54.12 and Vision loss H54.7 [place] [address] [address] Apr, [place] [address] [address] Apr, Anxiety F41.9 and Thoracic back pain, un specified back pain laterality, unspecified chronicity M54.6 [place] [address] [address] 17 Mar, 2018 [facility] [place] [address] [address] Mar, Anxiety F41.9 and Thoracic back pain, un specified back pain laterality, unspecified chronicity M54.6 [facility] [place] [address] [address] 14 Feb, 2018 Anxiety F41.9 and Thoracic back pain, un specified back pain laterality, unspecified chronicity M54.6 [place] [address] [address] 07 Feb, 2018 Thoracic back pain, unspecified back hao n laterality, unspecified chronicity M54.6 [place] [address] [address] Jan, [place] [address] [address] Jan, Anxiety F41.9 and Thoracic back pain, un specified back pain laterality, unspecified chronicity M54.6 [place] [address] [address] Dec, Diarrhea of presumed infectious origin R 19.7 [place] [address] [address] Dec, Diarrhea of presumed infectious origin R 19.7 [place] [address] [address] 18 Dec, 2017 Thoracic back pain, unspecified back hao n laterality, unspecified chronicity M54.6 [place] [address] [address] Dec, [place] [address] [address] Dec, Anxiety F41.9 and Thoracic back pain, un specified back pain laterality, unspecified chronicity M54.6 [place] [address] [address] Dec, Diarrhea of presumed infectious origin R 19.7 [place] [address] [address] Dec, [place] [address] [address] Dec, Anxiety F41.9 and Thoracic back pain, un specified back pain laterality, unspecified chronicity M54.6 [place] [address] [address] Dec, Anxiety F41.9 and Thoracic back pain, un specified back pain laterality, unspecified chronicity M54.6 [facility] [address] [place] [id number] Dec, Diarrhea of presumed infectious origin R 19.7 ; Anxiety F41.9 ; Thoracic back pain, unspecified back pain laterality, unspecified chronicity M54.6 and HTN (hypertension) I10 [address] [address] Dec, Anxiety F41.9 [facility] [address] [place] [id number] Dec, Anxiety F41.9 ; Diarrhea of presumed inf ectious origin R19.7 ; Generalized abdominal pain R10.84 and Localized edema R60.[address] [address] Nov, [facility] [address] [place] [id number] Nov, Anxiety F41.9 ; Urinary retention R33.9 ; Diarrhea of presumed infectious origin R19.7 ; Weakness R53.1 ; Acute kidney failure, unspecified N17.9 ; Chronic kidney disease, stage III (moderate) N18.3 and Thoracic back pain, unspecified back pain laterality, unspecified chronicity M54.[address] [address] Oct, Thoracic back pain, unspecified back hao n laterality, unspecified chronicity M54.6 and Anxiety F41.9 [place] [address] [address] Sep, Thoracic back pain, unspecified back hao n laterality, unspecified chronicity M54.6 and Anxiety F41.9 [place] [address] [address] Sep, Thoracic back pain, unspecified back hao n laterality, unspecified chronicity M54.6 ; Anxiety F41.9 and Encounter for medication monitoring Z51.81 [place] [address] [address] August, [place] [address] [address] August, Thoracic back pain, unspecified back hao n laterality, unspecified chronicity M54.6 and Anxiety F41.9 [place] [address] [address] August, Hyperlipidemia E78.5 and HTN (hypertensi on) I10 [place] [address] [address] August, [place] [address] [address] August, Medicare welcome exam Z00.00 ; Chronic k idney failure N18.9 ; Anxiety F41.9 ; Chronic pain G89.29 ; Insomnia G47.00 ; Hyperlipidemia E78.5 ; HTN (hypertension) I10 and Thoracic back pain, unspecified back pain laterality, unspecified chronicity M54.6 [place] [address] [address] Jul, [place] [address] [address] Jul, [place] [address] [address] Jul, [place] [address] [address] Jul, Anxiety F41.9 [place] [address] [address] Jul, Thoracic back pain, unspecified back hao n laterality, unspecified chronicity M54.6 and Anxiety F41.9 [place] [address] [address] Jun, Thoracic back pain, unspecified back hao n laterality, unspecified chronicity M54.6 and Anxiety F41.9 [place] [address] [address] May, Thoracic back pain, unspecified back hao n laterality, unspecified chronicity M54.6 and Anxiety F41.9 [place] [address] [address] Apr, Thoracic back pain, unspecified back hao n laterality, unspecified chronicity M54.6 and Anxiety F41.9 [place] [address] [address] Mar, [place] [address] [address] Mar, Thoracic back pain, unspecified back hao n laterality, unspecified chronicity M54.6 and Anxiety F41.9 [place] [address] [address] Mar, Thoracic back pain, unspecified back hao n laterality, unspecified chronicity M54.6 ; HTN (hypertension) I10 ; Hyperlipidemia E78.5 and Anxiety F41.9 [place] [address] [address] Feb, Thoracic back pain, unspecified back hao n laterality, unspecified chronicity M54.6 and Anxiety F41.9 [place] [address] [address] Nov, [place] [address] [address] Oct, [place] [address] [address] Oct, Thoracic back pain, unspecified back hao n laterality, unspecified chronicity M54.6 [facility] [place] [address] [address] Oct, HTN (hypertension) I10 ; Constipation K5 9.00 ; Hyperlipidemia E78.5 ; Thoracic back pain, unspecified back pain laterality, unspecified chronicity M54.6 ; Chronic pain G89.29 ; Anxiety F41.9 ; Chronic kidney failure N18.9 ; Environmental allergies Z91.09 ; Vitamin D deficiency E55.9 and Primary insomnia F51.01 [place] [address] [address] Sep, Anxiety F41.9 [place] [address] [address] Sep, [place] [address] [address] August, Anxiety F41.9 [place] [address] [address] August, [place] [address] [address] Jul, Anxiety F41.9 [place] [address] [address] Jul, [facility] [place] [address] [address] Jun, Anxiety F41.9 [facility] [place] [address] [address] Jun, [place] [address] [address] May, [facility] [place] [address] [address] May, [facility] [place] [address] [address] May, [facility] [place] [id number] [place] [address] Apr, [facility] [place] [address] [address] Apr, [facility] [place] [address] [address] Apr, Anxiety F41.9 [facility] [place] [address] [address] Apr, Anxiety F41.9 [facility] [place] [address] [address] Apr, [facility] [place] [address] [address] Mar, HTN (hypertension) I10 ; Tremor R25.1 ; Hypercholesterolemia E78.0 ; Constipation K59.00 ; Chronic pain G89.29 ; Hyperlipidemia E78.5 ; Insomnia G47.00 ; Anxiety F41.9 and Thoracic back pain, unspecified back pain laterality, unspecified chronicity M54.6 [facility] [place] [address] [address] Mar, Tremor R25.1 ; HTN (hypertension) I10 ; Hypercholesterolemia E78.0 ; Constipation K59.00 ; Chronic pain G89.29 ; Hyperlipidemia E78.5 ; Insomnia G47.00 ; Anxiety F41.9 and Thoracic back pain, unspecified back pain laterality, unspecified chronicity M54.6 [facility] [place] [id number] [place] [address] Mar, [facility] [place] [address] [address] Mar, [facility] [place] [address] [address] Feb, [facility] [place] [address] [address] Jan, [facility] [place] [address] [address] Jan, [facility] [place] [address] [address] Dec, [facility] [place] [address] [address] Nov, [facility] [place] [address] [address] Nov, [facility] [place] [address] [address] Oct, Anxiety F41.9 [facility] [place] [address] [address] Oct, Chronic pain G89.29 [facility] [place] [address] [address] Sep, [facility] [place] [address] [address] Sep, [facility] [place] [address] [address] Sep, [facility] [place] [address] [address] Sep, [facility] [place] [address] [address] Sep, Chronic pain syndrome G89.4 [facility] [place] [address] [address] Sep, HTN (hypertension) I10 ; Chronic pain G8 9.29 ; Hypercholesterolemia E78.0 ; Chronic kidney failure N18.9 ; Constipation, unspecified constipation type K59.00 ; Anxiety F41.9 and Thoracic back pain, unspecified back pain laterality, unspecified chronicity M54.6 [facility] [place] [address] [address] August, Chronic pain syndrome G89.4 [facility] [place] [address] [address] August, Chronic pain syndrome G89.4 [facility] [place] [id number] [place] [address] Jul, Anxiety disorder, unspecified F41.9 and Chronic pain syndrome G89.4 [facility] [place] [id number] [place] [address] Jul, Insomnia, unspecified G47.00 and Chronic pain syndrome G89.4 [facility] [place] [address] [address] Jul, Allergic rhinitis J30.9 [facility] [place] [address] [address] Jul, Constipation, unspecified K59.00 [facility] [place] [address] [address] Jul, [facility] [place] [address] [address] Jun, [facility] [place] [address] [address] Jun, [facility] [place] [address] [address] Jun, [facility] [place] [address] [address] Jun, [facility] [place] [address] [address] Jun, [facility] [place] [address] [address] Jun, [facility] [place] [id number] [place] [address] May, [facility] [place] [address] [address] May, [facility] [place] [address] [address] May, Anxiety F41.9 ; Insomnia G47.00 ; Hyperl ipidemia E78.5 ; Chronic pain G89.29 ; HTN (hypertension) I10 ; Environmental allergies V15.09 and Constipation 564.00 [facility] [place] [address] [address] Apr, [facility] [place] [address] [address] Apr, [facility] [place] [address] [address] Apr, [facility] [place] [address] [address] Mar, [facility] [place] [address] [address] Mar, [facility] [place] [address] [address] Mar, [facility] [place] [address] [address] Feb, [facility] [place] [address] [address] Feb, [facility] [place] [address] [address] Feb, [facility] [place] [address] [address] Jan, HTN (hypertension) I10 ; Constipation K5 9.00 ; Chronic pain G89.29 ; Hyperlipidemia E78.5 ; Hypercholesterolemia E78.0 ; Insomnia G47.00 and Anxiety F41.9 [facility], [place] [address] [address] Jan, [facility], [place] [address] [address] Dec, [facility], [place] [address] [address] Nov, [facility], [place] [address] [address] Oct, Chronic kidney disease, unspecified 585. 9 ; Chronic pain syndrome 338.4 ; Hyperlipidemia 272.4 and Essential hypertension 401.9 [facility], [place] [address] [address] Oct, Chronic kidney disease 585.9 [facility], [place] [address] [address] Oct, [facility], [place] [address] [address] Oct, Chronic kidney disease, unspecified 585. 9 ; Hypercalcemia 275.42 ; Hyperlipidemia 272.4 ; Essential hypertension 401.9 ; Chronic pain syndrome 338.4 ; Insomnia 780.52 ; Constipation 564.00 ; Environmental allergies V15.09 and Anxiety 300.00 [facility], [place] [address] [address] Oct, Chronic kidney disease 585.9 [facility], [place] [address] [address] Oct, [facility], [place] [address] [address] Oct, Chronic kidney disease 585.9 and Hyperli pidemia 272.4 [facility], [place] [address] [address] Oct, [facility], [place] [address] [address] Oct, [facility], [place] [address] [address] Sep, [facility], [place] [address] [address] Sep, [facility], [place] [address] [address] Sep, Chronic kidney disease 585.9 and Hyperli pidemia 272.4 [facility], [place] [address] [address] Sep, [facility], [place] [address] [address] August, [facility] [place] [address] [id number] [place] [address] August, [facility] [place] [address] [id number] [place] [address] 14 Jul, 2014 [facility] [place] [facility] [address] [id number] [place] [address] Jul, [facility] [place] [address] [id number] [place] [address] Jun, [facility] [place] [address] [id number] [place] [address] Jun, [facility] [place] [facility] [address] [id number] [place] [address] Jun, [facility] [place] [facility] [address] [id number] [place] [address] Jun, [facility] [place] [address] [id number] [place] [address] Jun, [facility] [place] [address] [id number] [place] [address] Jun, [facility] [place] [facility] [address] [id number] [place] [address] Jun, [facility] [place] [facility] [address] [id number] [place] [address] Jun, [facility] [place] [facility] [address] [id number] [place] [address] May, [facility] [place] [facility] [address] [id number] [place] [address] 16 May, 2014 [facility] [place] [facility] [address] [id number] [place] [address] May, [facility] [place] [facility] [address] [id number] [place] [address] May, [facility] [place] [facility] [address] [id number] [place] [address] Apr, [facility] [place] [facility] [address] [id number] [place] [address] Apr, [facility] [place] [facility] [address] [facility] [id number] [place] [address] Apr, [facility] [place] [facility] [address] [id number] [place] [address] Apr, [facility] [place] [facility] [address] [id number] [place] [address] Apr, [facility] [place] [facility] [address] [id number] [place] [address] Apr, [facility] [place] [facility] [address] [id number] [place] [address] Apr, [facility] [place] [facility] [address] [id number] [place] [address] Apr, [facility] [place] [facility] [address] [id number] [place] [address] Apr, [facility] [place] [facility] [address] [id number] [place] [address] Apr, [facility] [place] [facility] [address] [id number] [place] [address] Apr, [facility] [place] [facility] [address] [id number] [place] [address] Mar, [facility] [place] [facility] [address] [id number] [place] [address] Mar, [facility] [place] [facility] [address] [id number] [place] [address] Feb, [facility] [place] [facility] [address] [id number] [place] [address] Feb, [facility] [place] [facility] [address] [id number] [place] [address] Feb, [facility] [place] [facility] [address] [id number] [place] [address] Feb, [facility] [place] [facility] [address] [id number] [place] [address] Feb, [facility] [place] [facility] [address] [id number] [place] [address] Feb, [facility] [place] [facility] [address] [id number] [place] [address] Feb, [facility] [place] [facility] [address] [id number] [place] [address] Feb, [facility] [place] [facility] [address] [id number] [place] [address] Feb, [facility] [place] [facility] [address] [id number] [place] [address] Feb, [facility] [place] [facility] [address] [id number] [place] [address] Jan, [facility] [place] [facility] [address] [id number] [place] [address] Jan, [facility] [place] [facility] [address] [id number] [place] [address] Jan, [facility] [place] [facility] [address] [id number] [place] [address] Jan, [facility] [place] [facility] [address] [id number] [place] [address] Jan, [facility] [place] [facility] [address] [id number] [place] [address] Jan, [facility] [place] [facility] [address] [id number] [place] [address] Jan, [facility] [place] [facility] [address] [id number] [place] [address] Jan, [facility] [place] [facility] [address] [id number] [place] [address] 16 Jan, 2014 [facility] [place] [facility] [address] [id number] [place] [address] Jan, [facility] [place] [facility] [address] [id number] [place] [address] Jan, [facility] [place] [facility] [address] [id number] [place] [address] Dec, [facility] [place] [facility] [address] [id number] [place] [address] Dec, 2013 [facility] [place] [facility] [address] [facility] [id number] [place] [address] Dec, 2013 [facility] [place] [facility] [address] [facility] [id number] [place] [address] Dec, 2013 [facility] [place] [facility] [address] [id number] [place] [address] Dec, 2013 [facility] [place] [facility] [address] [facility] [id number] [place] [address] Dec, 2013 [facility] [place] [facility] [address] [id number] [place] [address] Dec, 2013 [facility] [place] [facility] [address] [id number] [place] [address] Dec, 2013 [facility] [place] [facility] [address] [id number] [place] [address] Nov, 2013 [facility] [place] [facility] [address] [id number] [place] [address] Nov, [facility] [place] [facility] [address] [id number] [place] [address] Nov, [facility] [place] [facility] [address] [id number] [place] [address] Nov, 2013 [facility] [place] [facility] [address] [id number] [place] [address] Nov, [facility] [place] [facility] [address] [id number] [place] [address] Nov, [facility] [place] [facility] [address] [id number] [place] [address] Nov, [facility] [place] [facility] [address] [id number] [place] [address] Nov, [facility] [place] [facility] [address] [id number] [place] [address] Oct, [facility] [place] [facility] [address] [id number] [place] [address] Oct, [facility] [place] [facility] [address] [facility] [id number] [facility] [place] [address] Oct, [facility] [place] [facility] [address] [facility] [id number] [facility] [place] [address] Oct, [facility] [place] [facility] [address] [id number] [place] [address] Sep, [facility] [place] [facility] [address] [facility] [id number] [facility] [place] [address] Sep, [facility] [place] [facility] [address] [facility] [id number] [facility] [place] [address] Sep, [facility] [place] [facility] [address] [id number] [place] [address] Sep, [facility] [place] [facility] [address] [id number] [place] [address] Sep, [facility] [place] [facility] [address] [id number] [place] [address] Sep, [facility] [place] [facility] [address] [id number] [place] [address] Sep, [facility] [place] [facility] [address] [id number] [place] [address] Sep, [facility] [place] [facility] [address] [id number] [place] [address] August, [facility] [place] [facility] [address] [id number] [place] [address] August, [facility] [place] [facility] [address] [id number] [place] [address] August, [facility] [place] [facility] [address] [id number] [place] [address] August, [facility] [place] [facility] [address] [id number] [place] [address] August, [facility] [place] [facility] [address] [id number] [place] [address] August, [facility] [place] [facility] [address] [id number] [place] [address] August, [facility] [place] [facility] [address] [facility] [id number] [place] [address] August, [facility] [place] [facility] [address] [id number] [place] [address] August, [facility] [place] [facility] [address] [id number] [place] [address] August, [facility] [place] [facility] [address] [id number] [place] [address] Jul, [facility] [place] [facility] [address] [id number] [place] [address] Jul, [facility] [place] [facility] [address] [id number] [place] [address] Jul, [facility] [place] [facility] [address] [id number] [place] [address] Jul, [facility] [place] [facility] [address] [id number] [place] [address] Jul, [facility] [place] [facility] [address] [id number] [place] [address] Jul, [facility] [place] [facility] [address] [id number] [place] [address] Jul, [facility] [place] [facility] [address] [id number] [place] [address] Jul, [facility] [place] [facility] [address] [id number] [place] [address] Jun, [facility] [place] [facility] [address] [id number] [place] [address] Jun, [facility] [place] [facility] [address] [id number] [place] [address] Jun, [facility] [place] [facility] [address] [id number] [place] [address] Jun, [facility] [place] [facility] [address] [id number] [place] [address] Jun, [facility] [place] [facility] [address] [facility] [id number] [place] [address] Jun, [facility] [place] [facility] [address] [facility] [id number] [place] [address] May, [facility] [place] [facility] [address] [facility] [id number] [place] [address] May, [facility] [place] [facility] [address] [facility] [id number] [place] [address] May, [facility] [place] [facility] [address] [facility] [id number] [place] [address] May, [facility] [place] [facility] [address] [id number] [place] [address] May, [facility] [place] [facility] [address] [id number] [place] [address] May, [facility] [place] [facility] [address] [id number] [place] [address] May, [facility] [place] [facility] [address] [facility] [id number] [place] [address] Apr, [facility] [place] [facility] [address] [id number] [place] [address] Apr, [facility] [place] [facility] [address] [id number] [place] [address] Apr, [facility] [place] [facility] [address] [id number] [place] [address] Apr, [facility] [place] [facility] [address] [facility] [id number] [place] [address] Apr, [facility] [place] [facility] [address] [facility] [id number] [place] [address] Apr, [facility] [place] [facility] [address] [facility] [id number] [place] [address] Mar, [facility] [place] [facility] [address] [id number] [place] [address] Mar, [facility] [place] [facility] [address] [id number] [place] [address] Mar, [facility] [place] [facility] [address] [id number] [place] [address] Mar, [facility] [place] [facility] [address] [id number] [place] [address] Mar, [facility] [place] [facility] [address] [id number] [place] [address] Mar, [facility] [place] [facility] [address] [id number] [place] [address] Mar, [facility] [place] [facility] [address] [id number] [place] [address] Mar, [facility] [place] [facility] [address] [id number] [place] [address] Mar, [facility] [place] [facility] [address] [id number] [place] [address] Mar, [facility] [place] [facility] [address] [id number] [place] [address] Feb, [facility] [place] [facility] [address] [id number] [place] [address] Feb, [facility] [place] [facility] [address] [id number] [place] [address] Feb, [facility] [place] [facility] [address] [id number] [place] [address] Feb, [facility] [place] [facility] [address] [id number] [place] [address] 14 Feb, 2013 [facility] [place] [facility] [address] [id number] [place] [address] 14 Feb, 2013 [facility] [place] [facility] [id number] [place] [address] 11 Feb, 2013 [facility] [place] [facility] [address] [id number] [place] [address] Feb, [facility] [place] [facility] [address] [id number] [place] [address] 08 Feb, 2013 [facility] [place] [facility] [address] [facility] [id number] [place] [address] Feb, [facility] [place] [facility] [address] [id number] [place] [address] Jan, [facility] [place] [facility] [address] [id number] [place] [address] Jan, [facility] [place] [facility] [address] [id number] [place] [address] Jan, [facility] [place] [facility] [address] [id number] [place] [address] Jan, [facility] [place] [facility] [address] [id number] [place] [address] Jan, [facility] [place] [facility] [address] [id number] [place] [address] Jan, [facility] [place] [facility] [address] [id number] [place] [address] Jan, [facility] [place] [facility] [address] [id number] [place] [address] Jan, [facility] [place] [facility] [address] [id number] [place] [address] Jan, [facility] [place] [facility] [address] [id number] [place] [address] 25 Dec, 2012 [facility] [place] [facility] [address] [id number] [place] [address] 23 Dec, 2012 [facility] [place] [facility] [address] [id number] [place] [address] 21 Dec, 2012 [facility] [place] [facility] [address] [id number] [place] [address] 13 Dec, 2012 [facility] [place] [facility] [address] [id number] [place] [address] Nov, [facility] [place] [facility] [address] [id number] [place] [address] Nov, [facility] [place] [facility] [address] [id number] [place] [address] Nov, [facility] [place] [facility] [address] [facility] [id number] [place] [address] Nov, [facility] [place] [facility] [address] [facility] [id number] [facility] [place] [address] Nov, [facility] [place] [facility] [address] [id number] [place] [address] Nov, [facility] [place] [facility] [address] [id number] [facility] [place] [address] Oct, [facility] [place] [facility] [address] [facility] [id number] [facility] [place] [address] Oct, [facility] [place] [facility] [address] [id number] [place] [address] Oct, [facility] [place] [facility] [address] [id number] [place] [address] Oct, [facility] [place] [facility] [address] [id number] [place] [address] Sep, [facility] [place] [facility] [address] [facility] [id number] [place] [address] Sep, [facility] [place] [facility] [address] [id number] [place] [address] Sep, [facility] [place] [facility] [address] [id number] [place] [address] Sep, [facility] [place] [facility] [address] [id number] [place] [address] Sep, [facility] [place] [facility] [address] [facility] [id number] [place] [address] August, [facility] [place] [facility] [address] [facility] [id number] [place] [address] August, [facility] [place] [facility] [address] [id number] [place] [address] Jul, [facility] [place] [facility] [address] [id number] [place] [address] Jul, [facility] [place] [facility] [address] [id number] [place] [address] 15 Jul, 2012 [facility] [place] [facility] [address] [id number] [facility] [place] [address] 09 Jul, 2012 [facility] [place] [facility] [address] [id number] [place] [address] 08 Jul, 2012 [facility] [place] [facility] [address] [id number] [place] [address] 26 Jun, 2012 [facility] [place] [facility] [address] [id number] [place] [address] Jun, [facility] [place] [facility] [address] [id number] [place] [address] 15 Jun, 2012 [facility] [place] [facility] [address] [id number] [place] [address] 06 Jun, 2012 [facility] [place] [facility] [address] [id number] [place] [address] Jun, [facility] [place] [facility] [address] [id number] [place] [address] 28 May, 2012 [facility] [place] [facility] [address] [id number] [place] [address] 27 May, 2012 [facility] [place] [facility] [address] [id number] [place] [address] 25 May, 2012 [facility] [place] [facility] [address] [id number] [place] [address] May, [facility] [place] [facility] [address] [id number] [place] [address] 20 May, 2012 [facility] [place] [facility] [address] [id number] [place] [address] 14 May, 2012 [facility] [place] [facility] [address] [id number] [place] [address] 13 May, 2012 [facility] [place] [facility] [address] [id number] [place] [address] 08 May, 2012 [facility] [address] [id number] [place] [address] May, [facility] [address] [facility] [id number] [place] [address] Apr, [facility] [address] [id number] [place] [address] Apr, [facility] [address] [id number] [place] [address] Apr, [facility] [address] [id number] [place] [address] Apr, [facility] [address] [facility] [id number] [place] [address] Apr, [facility] [address] [id number] [place] [address] Mar, [facility] [address] [id number] [place] [address] Mar, [facility] [address] [id number] [place] [address] Mar, [facility] [address] [id number] [place] [address] Mar, [facility] [address] [id number] [place] [address] Mar, [facility] [address] [id number] [place] [address] Mar, [facility] [address] [id number] [place] [address] Mar, [facility] [address] [id number] [place] [address] Mar, [facility] [address] [id number] [place] [address] Mar, [facility] [address] [id number] [place] [address] Mar, [facility] [address] [id number] [place] [address] Feb, [facility] [address] [id number] [place] [address] 30 Feb, 2012 [facility] [address] [id number] [place] [address] Feb, [facility] [address] [id number] [place] [address] Feb, [facility] [address] [id number] [place] [address] Feb, [facility] [address] [id number] [place] [address] Feb, [facility] [address] [id number] [place] [address] Feb, [facility] [address] [id number] [place] [address] Feb, [facility] [address] [id number] [place] [address] Feb, [facility] [address] [id number] [place] [address] Feb, [facility] [address] [id number] [place] [address] Feb, [facility] [address] [id number] [place] [address] Feb, [facility] [address] [id number] [place] [address] Feb, [facility] [address] [id number] [place] [address] Feb, [facility] [address] [id number] [place] [address] Feb, [facility] [address] [id number] [place] [address] Feb, [facility] [address] [id number] [place] [address] Feb, [facility] [address] [id number] [place] [address] Feb, [facility] [address] [id number] [place] [address] Jan, 2011 [facility] [address] [id number] [place] [address] Jan, 2011 [facility] [address] [id number] [place] [address] Jan, 2011 [facility] [address] [id number] [place] [address] Jan, [facility] [address] [id number] [place] [address] Jan, [facility] [address] [id number] [place] [address] Jan, [facility] [address] [id number] [place] [address] Jan, [facility] [address] [id number] [place] [address] Jan, [facility] [address] [id number] [place] [address] Jan, [facility] [address] [id number] [place] [address] Jan, [facility] [address] [id number] [place] [address] 24 Dec, 2011 [facility] [address] [id number] [place] [address] 18 Dec, 2011 [facility] [address] [id number] [place] [address] Dec, 2011 [facility] [address] [id number] [place] [address] Dec, 2011 [facility] [address] [id number] [place] [address] Nov, [facility] [address] [id number] [place] [address] Nov, [facility] [address] [id number] [place] [address] Nov, [facility] [address] [facility] [id number] [place] [address] Nov, [facility] [address] [facility] [id number] [facility] [place] [address] Nov, [facility] [address] [id number] [place] [address] Nov, [facility] [address] [id number] [facility] [facility] [place] [address] Oct, [facility] [address] [facility] [id number] [place] [address] Oct, [facility] [address] [id number] [place] [address] Oct, [facility] [address] [id number] [place] [address] Oct, [facility] [address] [id number] [place] [address] Oct, [facility] [address] [id number] [place] [address] Sep, [facility] [address] [id number] [place] [address] Sep, [facility] [address] [id number] [place] [address] Sep, [facility] [address] [id number] [place] [address] Sep, [facility] [address] [id number] [place] [address] Sep, [facility] [address] [id number] [place] [address] August, [facility] [address] [id number] [place] [address] August, [facility] [address] [id number] [place] [address] August, [facility] [address] [id number] [facility] [place] [address] August, [facility] [address] [id number] [place] [address] Jul, [facility] [address] [id number] [place] [address] 24 Jul, 2011 [facility] [address] [id number] [place] [address] Jul, [facility] [address] [id number] [place] [address] Jul, [facility] [address] [id number] [place] [address] Jul, [facility] [address] [id number] [place] [address] Jul, [facility] [address] [id number] [place] [address] Jul, [facility] [address] [id number] [place] [address] Jul, [facility] [address] [id number] [place] [address] Jul, [facility] [address] [id number] [place] [address] Jul, [facility] [address] [id number] [place] [address] 05 Jul, 2011 [facility] [address] [id number] [place] [address] Jul, [facility] [address] [id number] [place] [address] Jul, [facility] [address] [id number] [place] [address] Jul, [facility] [address] [id number] [place] [address] Jun, [facility] [address] [id number] [place] [address] Jun, [facility] [address] [id number] [place] [address] Jun, [facility] [address] [id number] [place] [address] Jun, [facility] [address] [id number] [place] [address] 27 May, 2011 [facility] [id number] [place] [address] May, [facility] [address] [id number] [place] [address] May, [facility] [address] [id number] [place] [address] Apr, [facility] [address] [id number] [place] [address] Apr, [facility] [id number] [place] [address] Apr, [facility] [address] [id number] [place] [address] Apr, [facility] [id number] [place] [address] Apr, [facility] [address] [id number] [place] [address] Mar, [facility] [address] [id number] [place] [address] Mar, [facility] [address] [id number] [place] [address] Mar, [facility] [address] [id number] [place] [address] Mar, [facility] [address] [id number] [place] [address] Mar, [facility] [address] [id number] [place] [address] Mar, [facility] [address] [id number] [place] [address] 05 Mar, 2011 [facility] [address] [id number] [place] [address] 29 Feb, 2011 [facility] [address] [id number] [place] [address] Feb, [facility] [address] [id number] [place] [address] Feb, [facility] [address] [id number] [place] [address] 22 Feb, 2011 [facility] [address] [id number] [place] [address] 16 Feb, 2011 [facility] [address] [id number] [place] [address] 14 Feb, 2011 [facility] [address] [id number] [place] [address] 10 Feb, 2011 [facility] [address] [id number] [place] [address] 31 Jan, 2011 [facility] [address] [id number] [place] [address] 31 Jan, 2011 [facility] [address] [id number] [place] [address] 31 Jan, 2011 [facility] [address] [id number] [place] [address] 18 Jan, 2011 [facility] [address] [id number] [place] [address] 17 Jan, 2011 [facility] [address] [id number] [place] [address] 17 Jan, 2011 [facility] [address] [id number] [place] [address] 17 Jun, 2010 [facility] [address] [id number] [place] [address] 30 Mar, 2010 [facility] [address] [id number] [place] [address] Mar, [facility] [address] [id number] [place] [address] 14 Mar, 2010 [facility] [address] [id number] [place] [address] 14 Mar, 2010 [facility] [address] [id number] [place] [address] 13 Mar, 2010 [facility] [address] [id number] [place] [address] 07 Mar, 2010 [facility] [address] [id number] [place] [address] 02 Mar, 2010 [facility] [address] [id number] [place] [address] Mar, [facility] [address] [id number] [place] [address] 30 Feb, 2010 [facility] [address] [id number] [place] [address] 29 Feb, 2010 [facility] [address] [id number] [place] [address] 17 Feb, 2010 [facility] [address] [id number] [place] [address] 17 Feb, 2010 [facility] [address] [id number] [place] [address] 16 Feb, 2010 [facility] [address] [id number] [place] [address] 08 Feb, 2010 [facility] [address] [id number] [place] [address] 04 Feb, 2010 [facility] [address] [id number] [place] [address] Feb, [facility] [address] [id number] [place] [address] 28 Jan, 2010 [facility] [address] [id number] [place] [address] Jan, [facility] [address] [id number] [place] [address] Jan, [facility] [place] [address] [id number] [place] [address] Jan, [facility] [place] [id number] [place] [address] Mar, [facility] [place] [address] [id number] [place] [address] Mar, [facility] [place] [id number] [place] [address] Mar, [facility] [place] [id number] [place] [address] Mar, [facility] [place] [id number] [place] [address] Mar, [facility] [place] [id number] [place] [address] Mar, [facility] [place] [id number] [place] [address] Feb, [facility] [place] [id number] [place] [address] Feb, [facility] [place] [id number] [place] [address] Jan, [facility] [place] [id number] [place] [address] Sep, [facility] [place] [id number] [place] [address] May, IMMUNIZATIONS No Known Immunizations SOCIAL HISTORY [...] Surgical History Left ear surgery Hospitalization History [facility] [place]- Spontane ous Pneumothorax Hospitalization History [facility]- Colon resection [facility] History [facility] - diarrhea/ couldnt urin ate nov 2017 Hospitalization History pain /hip to foot right side 10/16/19 19
--- OUTSIDE RECORDS SUMMARY | 2019-08-28 08:53 | XMS REPORT ---
Author Author Dixon MARIE Organization [facility] Address [address] [place] [address] Care Team Providers Care Email Production Specialist Name Role Phone NANCY MARIE Unavailable PROBLEMS Type Condition ICD9-CM Code QVT34-IK Code Onset Dates Condition S tatus SNOMED Code Problem Insomnia G47.00 Active 700556817 Problem Anxiety F41.9 Active 63706698 Problem HTN (hypertension) I10 Active 3 3456934 Problem Chronic pain G89.29 Active 0857832 1 Problem Constipation K59.00 Active 9647846 8 Problem Thoracic back pain, unspecif ied back pain laterality, unspecified chronicity M54.6 Active 503389768 Problem Hyperlipidemia E78.5 Active 09688 004 Problem Vitamin D deficiency E55.9 Active 79651602 Problem Chronic kidney disease, stage III (moderate) N18.3 Active 061709886 Problem Vision loss H54.7 Active 57900367 1 Problem Age-related cataract of both eyes, unspecified age-related cataract type H25.9 Active 91766463 Problem Primary insomnia F51.01 Active 397 2004 Problem Psychophysiologic insomnia F51.04 Act saúl 759240171 Problem Environmental allergies Z91.09 Active 137402939 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 76090441 Problem Schizophrenia, unspecified type F20.9 Active 94650197 Problem Psychophysiological insomnia F51.04 A ctive 442718323 Problem Psychophysiological insomnia F51.04 A ctive [id number] ALLERGIES No Information ENCOUNTERS Encounter Location Date Diagnosis [facility] [id number] [place] [address] 10 Jun, 2019 Thoracic back pain, unspecified back hao n laterality, unspecified chronicity M54.6 [facility] [address] [id number] [place] [address] Jun, [facility] [address] [address] 04 Jun, 2019 Anxiety F41.9 and Thoracic back pain, un specified back pain laterality, unspecified chronicity M54.6 [facility] [address] [address] 04 Jun, 2019 [facility] [address] [address] May, [facility] [address] [address] May, Psychophysiologic insomnia F51.04 [address] [address] 13 May, 2019 Other constipation K59.09 [address] [address] [address] 11 May, 2019 Thoracic back pain, unspecified back hao n laterality, unspecified chronicity M54.6 [address] [address] [address] 06 May, 2019 Anxiety F41.9 and Thoracic back pain, un specified back pain laterality, unspecified chronicity M54.6 [address] [address] [address] May, [facility] [address] [address] Apr, [address] [address] Apr, [facility] [address] [address] Apr, Psychophysiological insomnia F51.04 [facility] [address] [address] 15 Apr, 2019 Thoracic back pain, unspecified back hao n laterality, unspecified chronicity M54.6 [facility] [address] [address] Apr, Thoracic back pain, unspecified back hao n laterality, unspecified chronicity M54.6 [place] [address] [address] Apr, Anxiety F41.9 [address] [address] [address] Apr, Psychophysiological insomnia F51.04 [address] [address] [address] Mar, Encounter for Medicare annual wellness e [...] both eyes, unspecified age-related cataract type H25.9 [address] [address] [address] Mar, Thoracic back pain, unspecified back hao n laterality, unspecified chronicity M54.6 [address] [address] [address] Mar, Psychophysiological insomnia F51.04 [place] [address] [address] Mar, Thoracic back pain, unspecified back hao n laterality, unspecified chronicity M54.6 and Anxiety F41.9 [address] [address] [address] Mar, Psychophysiological insomnia F51.04 [address] [address] [address] Mar, [address] [address] [address] Mar, Psychophysiological insomnia F51.04 [address] [address] Mar, [facility] [address] [address] Feb, [facility] [address] [id number] Feb, Thoracic back pain, unspecified back hao n laterality, unspecified chronicity M54.6 [facility] [address] [address] Feb, Anxiety F41.9 and Thoracic back pain, un specified back pain laterality, unspecified chronicity M54.6 [address] [address] [address] Feb, Insomnia G47.00 ; HTN (hypertension) I10 and Constipation K59.00 [place] [address] [address] Feb, [facility] [address] [address] Jan, Thoracic back pain, unspecified back hao n laterality, unspecified chronicity M54.6 [address] [address] Jan, Anxiety F41.9 [facility] [address] [address] Jan, Anxiety F41.9 [facility] [address] [address] Jan, Anxiety F41.9 and Thoracic back pain, un specified back pain laterality, unspecified chronicity M54.6 [facility] [address] [address] Jan, [facility] [address] [address] Jan, [facility] [address] [address] Dec, Thoracic back pain, unspecified back hao n laterality, unspecified chronicity M54.6 [facility] [address] [address] Dec, Thoracic back pain, unspecified back hao n laterality, unspecified chronicity M54.6 [facility] [address] [address] Nov, Thoracic back pain, unspecified back hao n laterality, unspecified chronicity M54.6 [facility] [address] [address] Nov, Anxiety F41.9 and Thoracic back pain, un specified back pain laterality, unspecified chronicity M54.6 [facility] [address] [address] Nov, [facility] [address] [address] Nov, [facility] [address] [address] Nov, [facility] [address] [address] Oct, Thoracic back pain, unspecified back hao n laterality, unspecified chronicity M54.6 [facility] [address] [address] Oct, Anxiety F41.9 and Thoracic back pain, un specified back pain laterality, unspecified chronicity M54.6 [facility] [address] [address] Oct, Schizophrenia, unspecified type F20.9 an d Acute kidney injury N17.9 [facility] [address] [address] Oct, [facility] [address] [address] Oct, [facility] [address] [address] Oct, Thoracic back pain, unspecified back hao n laterality, unspecified chronicity M54.6 [facility] [address] [address] Oct, [facility] [address] [address] Oct, [facility] [address] [address] Sep, Anxiety F41.9 [facility] [address] [address] Sep, [facility] [address] [address] Sep, Thoracic back pain, unspecified back hao n laterality, unspecified chronicity M54.6 [facility] [address] [address] Sep, [facility] [address] [address] Sep, [facility] [address] [address] Sep, [facility] [address] [address] Sep, [facility] [address] [address] Sep, [facility] [address] [address] Sep, [facility] [address] [address] Sep, Chronic pain G89.29 ; Chronic kidney dis ease, stage III (moderate) N18.3 ; Hyperlipidemia E78.5 and Insomnia G47.00 [facility] [address] [address] Sep, Thoracic back pain, unspecified back hao n laterality, unspecified chronicity M54.6 [facility] [address] [address] August, Anxiety F41.9 [facility] [address] [address] August, Thoracic back pain, unspecified back hao n laterality, unspecified chronicity M54.6 and Anxiety F41.9 [facility] [address] [address] August, 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 [facility] [address] [address] August, 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 [facility] [address] [address] August, [facility] [address] [address] August, [facility] [address] [address] August, Thoracic back pain, unspecified back hao n laterality, unspecified chronicity M54.6 [facility] [address] [address] August, [facility] [address] [address] August, Anxiety F41.9 and Thoracic back pain, un specified back pain laterality, unspecified chronicity M54.6 [facility] [address] [address] Jul, [facility] [address] [address] Jul, Thoracic back pain, unspecified back hao n laterality, unspecified chronicity M54.6 [facility] [address] [address] Jun, Anxiety F41.9 and Thoracic back pain, un specified back pain laterality, unspecified chronicity M54.6 [facility] [address] [address] Jun, Anxiety F41.9 and Thoracic back pain, un specified back pain laterality, unspecified chronicity M54.6 [facility] [address] [address] Jun, Thoracic back pain, unspecified back hao n laterality, unspecified chronicity M54.6 [address] [address] Jun, Anxiety F41.9 and Thoracic back pain, un specified back pain laterality, unspecified chronicity M54.6 [address] [address] [address] May, [address] [address] May, [address] [address] May, [address] [address] May, Anxiety F41.9 and Encounter for medicati on monitoring Z51.81 [address] [address] [address] 05 May, 2018 Anxiety F41.9 and Thoracic back pain, un specified back pain laterality, unspecified chronicity M54.6 [address] [address] [address] Apr, Hyperlipidemia 272.4 [address] [address] Apr, Chronic pain G89.29 ; Anxiety F41.9 ; Ce rvical radiculopathy M54.12 and Vision loss H54.7 [address] [address] [address] Apr, [address] [address] Apr, Anxiety F41.9 and Thoracic back pain, un specified back pain laterality, unspecified chronicity M54.6 [address] [address] 17 Mar, 2018 [facility] [address] [address] Mar, Anxiety F41.9 and Thoracic back pain, un specified back pain laterality, unspecified chronicity M54.6 [facility] [address] [address] 14 Feb, 2018 Anxiety F41.9 and Thoracic back pain, un specified back pain laterality, unspecified chronicity M54.6 [address] [address] 07 Feb, 2018 Thoracic back pain, unspecified back hao n laterality, unspecified chronicity M54.6 [address] [address] Jan, [address] [place] [address] Jan, Anxiety F41.9 and Thoracic back pain, un specified back pain laterality, unspecified chronicity M54.6 [address] [address] Dec, Diarrhea of presumed infectious origin R 19.7 [address] [place] [address] Dec, Diarrhea of presumed infectious origin R 19.7 [address] [address] 18 Dec, 2017 Thoracic back pain, unspecified back hao n laterality, unspecified chronicity M54.6 [address] [address] Dec, [address] [address] Dec, Anxiety F41.9 and Thoracic back pain, un specified back pain laterality, unspecified chronicity M54.6 [address] [address] Dec, Diarrhea of presumed infectious origin R 19.7 [address] [address] Dec, [address] [address] Dec, Anxiety F41.9 and Thoracic back pain, un specified back pain laterality, unspecified chronicity M54.6 [address] [address] Dec, Anxiety F41.9 and Thoracic back pain, un specified back pain laterality, unspecified chronicity M54.6 [facility] [address] [place] [id number] Dec, Diarrhea of presumed infectious origin R 19.7 ; Anxiety F41.9 ; Thoracic back pain, unspecified back pain laterality, unspecified chronicity M54.6 and HTN (hypertension) I10 [address] [address] Dec, Anxiety F41.9 [facility] [address] [place] [id number] Dec, Anxiety F41.9 ; Diarrhea of presumed inf ectious origin R19.7 ; Generalized abdominal pain R10.84 and Localized edema R60.[address] [address] Nov, [facility] [address] [place] [id number] Nov, Anxiety F41.9 ; Urinary retention R33.9 ; Diarrhea of presumed infectious origin R19.7 ; Weakness R53.1 ; Acute kidney failure, unspecified N17.9 ; Chronic kidney disease, stage III (moderate) N18.3 and Thoracic back pain, unspecified back pain laterality, unspecified chronicity M54.[address] [address] Oct, Thoracic back pain, unspecified back hao n laterality, unspecified chronicity M54.6 and Anxiety F41.9 [address] [address] Sep, Thoracic back pain, unspecified back hao n laterality, unspecified chronicity M54.6 and Anxiety F41.9 [address] [address] Sep, Thoracic back pain, unspecified back hao n laterality, unspecified chronicity M54.6 ; Anxiety F41.9 and Encounter for medication monitoring Z51.81 [address] [address] August, [address] [address] August, Thoracic back pain, unspecified back hao n laterality, unspecified chronicity M54.6 and Anxiety F41.9 [address] [address] August, Hyperlipidemia E78.5 and HTN (hypertensi on) I10 [address] [address] August, [address] [address] August, Medicare welcome exam Z00.00 ; Chronic k idney failure N18.9 ; Anxiety F41.9 ; Chronic pain G89.29 ; Insomnia G47.00 ; Hyperlipidemia E78.5 ; HTN (hypertension) I10 and Thoracic back pain, unspecified back pain laterality, unspecified chronicity M54.6 [address] [address] Jul, [address] [address] Jul, [address] [address] Jul, [address] [address] Jul, Anxiety F41.9 [address] [address] Jul, Thoracic back pain, unspecified back hao n laterality, unspecified chronicity M54.6 and Anxiety F41.9 [address] [address] Jun, Thoracic back pain, unspecified back hao n laterality, unspecified chronicity M54.6 and Anxiety F41.9 [address] [address] May, Thoracic back pain, unspecified back hao n laterality, unspecified chronicity M54.6 and Anxiety F41.9 [address] [address] Apr, Thoracic back pain, unspecified back hao n laterality, unspecified chronicity M54.6 and Anxiety F41.9 [address] [address] Mar, [address] [address] Mar, Thoracic back pain, unspecified back hao n laterality, unspecified chronicity M54.6 and Anxiety F41.9 [address] [address] Mar, Thoracic back pain, unspecified back hao n laterality, unspecified chronicity M54.6 ; HTN (hypertension) I10 ; Hyperlipidemia E78.5 and Anxiety F41.9 [address] [address] Feb, Thoracic back pain, unspecified back hao n laterality, unspecified chronicity M54.6 and Anxiety F41.9 [address] [address] Nov, [address] [address] Oct, [address] [address] Oct, Thoracic back pain, unspecified back hao n laterality, unspecified chronicity M54.6 [facility] [address] [address] Oct, HTN (hypertension) I10 ; Constipation K5 9.00 ; Hyperlipidemia E78.5 ; Thoracic back pain, unspecified back pain laterality, unspecified chronicity M54.6 ; Chronic pain G89.29 ; Anxiety F41.9 ; Chronic kidney failure N18.9 ; Environmental allergies Z91.09 ; Vitamin D deficiency E55.9 and Primary insomnia F51.01 [address] [address] Sep, Anxiety F41.9 [address] [address] [address] Sep, [address] [address] August, Anxiety F41.9 [address] [address] August, [address] [address] Jul, Anxiety F41.9 [address] [address] Jul, [facility] [address] [address] Jun, Anxiety F41.9 [facility] [address] [address] Jun, [address] [address] May, [facility] [address] [address] May, [facility] [address] [address] May, [facility] [id number] [place] [address] Apr, [facility] [address] [address] Apr, [facility] [address] [address] Apr, Anxiety F41.9 [facility] [address] [address] Apr, Anxiety F41.9 [facility] [address] [address] Apr, [facility] [address] [address] Mar, HTN (hypertension) I10 ; Tremor R25.1 ; Hypercholesterolemia E78.0 ; Constipation K59.00 ; Chronic pain G89.29 ; Hyperlipidemia E78.5 ; Insomnia G47.00 ; Anxiety F41.9 and Thoracic back pain, unspecified back pain laterality, unspecified chronicity M54.6 [facility] [address] [address] Mar, Tremor R25.1 ; HTN (hypertension) I10 ; Hypercholesterolemia E78.0 ; Constipation K59.00 ; Chronic pain G89.29 ; Hyperlipidemia E78.5 ; Insomnia G47.00 ; Anxiety F41.9 and Thoracic back pain, unspecified back pain laterality, unspecified chronicity M54.6 [facility] [id number] [place] [address] Mar, [facility] [address] [address] Mar, [facility] [address] [address] Feb, [facility] [address] [address] Jan, [facility] [address] [address] Jan, [facility] [address] [address] Dec, [facility] [address] [address] Nov, [facility] [address] [address] Nov, [facility] [address] [address] Oct, Anxiety F41.9 [facility] [address] [address] Oct, Chronic pain G89.29 [facility] [address] [address] Sep, [facility] [address] [address] Sep, [facility] [address] [address] Sep, [facility] [address] [address] Sep, [facility] [address] [address] Sep, Chronic pain syndrome G89.4 [facility] [address] [address] Sep, HTN (hypertension) I10 ; Chronic pain G8 9.29 ; Hypercholesterolemia E78.0 ; Chronic kidney failure N18.9 ; Constipation, unspecified constipation type K59.00 ; Anxiety F41.9 and Thoracic back pain, unspecified back pain laterality, unspecified chronicity M54.6 [facility] [address] [address] August, Chronic pain syndrome G89.4 [facility] [address] [address] August, Chronic pain syndrome G89.4 [facility] [id number] [place] [address] Jul, Anxiety disorder, unspecified F41.9 and Chronic pain syndrome G89.4 [facility] [id number] [place] [address] Jul, Insomnia, unspecified G47.00 and Chronic pain syndrome G89.4 [facility] [address] [address] Jul, Allergic rhinitis J30.9 [facility] [address] [address] Jul, Constipation, unspecified K59.00 [facility] [address] [address] Jul, [facility] [address] [address] Jun, [facility] [address] [address] Jun, [facility] [address] [address] Jun, [facility] [address] [address] Jun, [facility] [address] [address] Jun, [facility] [address] [address] Jun, [facility] [id number] [place] [address] May, [facility] [address] [address] May, [facility] [address] [address] May, Anxiety F41.9 ; Insomnia G47.00 ; Hyperl ipidemia E78.5 ; Chronic pain G89.29 ; HTN (hypertension) I10 ; Environmental allergies V15.09 and Constipation 564.00 [facility] [address] [address] Apr, [facility] [address] [address] Apr, [facility] [address] [address] Apr, [facility] [address] [address] Mar, [facility] [address] [address] Mar, [facility] [address] [address] Mar, [facility] [address] [address] Feb, [facility] [address] [address] Feb, [facility] [address] [address] Feb, [facility] [address] [address] Jan, HTN (hypertension) I10 ; Constipation K5 9.00 ; Chronic pain G89.29 ; Hyperlipidemia E78.5 ; Hypercholesterolemia E78.0 ; Insomnia G47.00 and Anxiety F41.9 [facility] [address] [address] Jan, [facility] [address] [address] Dec, [facility] [address] [address] Nov, [facility] [address] [address] Oct, Chronic kidney disease, unspecified 585. 9 ; Chronic pain syndrome 338.4 ; Hyperlipidemia 272.4 and Essential hypertension 401.9 [facility] [address] [address] Oct, Chronic kidney disease 585.9 [facility] [address] [address] Oct, [facility] [address] [address] Oct, Chronic kidney disease, unspecified 585. 9 ; Hypercalcemia 275.42 ; Hyperlipidemia 272.4 ; Essential hypertension 401.9 ; Chronic pain syndrome 338.4 ; Insomnia 780.52 ; Constipation 564.00 ; Environmental allergies V15.09 and Anxiety 300.00 [facility] [address] [address] Oct, Chronic kidney disease 585.9 [facility] [address] [address] Oct, [facility] [address] [address] Oct, Chronic kidney disease 585.9 and Hyperli pidemia 272.4 [facility] [address] [address] Oct, [facility] [address] [address] Oct, [facility] [address] [address] Sep, [facility] [address] [address] Sep, [facility] [address] [address] Sep, Chronic kidney disease 585.9 and Hyperli pidemia 272.4 [facility] [address] [address] Sep, [facility] [address] [address] August, [facility] [address] [id number] [place] [address] August, [facility] [address] [id number] [place] [address] 14 Jul, 2014 [facility] [address] [id number] [place] [address] Jul, [facility] [address] [id number] [place] [address] Jun, [facility] [address] [id number] [place] [address] Jun, [facility] [address] [id number] [place] [address] Jun, [facility] [address] [id number] [place] [address] Jun, [facility] [address] [id number] [place] [address] Jun, [facility] [address] [id number] [place] [address] Jun, [facility] [place] [facility] [address] [id number] [place] [address] Jun, [facility] [place] [facility] [address] [id number] [place] [address] Jun, [facility] [place] [facility] [address] [id number] [place] [address] May, [facility] [place] [address] [id number] [place] [address] 16 May, 2014 [facility] [place] [facility] [address] [id number] [place] [address] May, [facility] [place] [facility] [address] [id number] [place] [address] May, [facility] [place] [facility] [address] [id number] [place] [address] Apr, [facility] [place] [facility] [address] [id number] [place] [address] Apr, [facility] [place] [facility] [address] [facility] [id number] [place] [address] Apr, [facility] [place] [facility] [address] [id number] [place] [address] Apr, [facility] [place] [facility] [address] [id number] [place] [address] Apr, [facility] [place] [facility] [address] [id number] [place] [address] Apr, [facility] [place] [facility] [address] [id number] [place] [address] Apr, [facility] [place] [facility] [address] [id number] [place] [address] Apr, [facility] [place] [facility] [address] [id number] [place] [address] Apr, [facility] [place] [facility] [address] [id number] [place] [address] Apr, [facility] [place] [facility] [address] [id number] [place] [address] Apr, [facility] [place] [facility] [address] [id number] [place] [address] Mar, [facility] [place] [facility] [address] [id number] [place] [address] Mar, [facility] [place] [facility] [address] [id number] [place] [address] Feb, [facility] [place] [facility] [address] [id number] [place] [address] Feb, [facility] [place] [facility] [address] [id number] [place] [address] Feb, [facility] [place] [facility] [address] [id number] [place] [address] Feb, [facility] [place] [facility] [address] [id number] [place] [address] Feb, [facility] [place] [facility] [address] [id number] [place] [address] Feb, [facility] [place] [facility] [address] [id number] [place] [address] Feb, [facility] [place] [facility] [address] [id number] [place] [address] Feb, [facility] [place] [facility] [address] [id number] [place] [address] Feb, [facility] [place] [facility] [address] [id number] [place] [address] Feb, [facility] [place] [facility] [address] [id number] [place] [address] Jan, [facility] [place] [facility] [address] [id number] [place] [address] Jan, [facility] [place] [facility] [address] [id number] [place] [address] Jan, [facility] [place] [facility] [address] [id number] [place] [address] Jan, [facility] [place] [facility] [address] [id number] [place] [address] Jan, [facility] [place] [facility] [address] [id number] [place] [address] Jan, [facility] [place] [facility] [address] [id number] [place] [address] Jan, [facility] [place] [facility] [address] [id number] [place] [address] Jan, [facility] [place] [facility] [address] [id number] [place] [address] 16 Jan, 2014 [facility] [place] [facility] [address] [id number] [place] [address] Jan, [facility] [place] [facility] [address] [id number] [place] [address] Jan, [facility] [place] [facility] [address] [id number] [place] [address] Dec, [facility] [place] [facility] [address] [id number] [place] [address] Dec, 2013 [facility] [place] [facility] [address] [facility] [id number] [place] [address] Dec, 2013 [facility] [place] [facility] [address] [facility] [id number] [place] [address] Dec, 2013 [facility] [place] [facility] [address] [id number] [place] [address] Dec, 2013 [facility] [place] [facility] [address] [facility] [id number] [place] [address] Dec, 2013 [facility] [place] [facility] [address] [id number] [place] [address] Dec, 2013 [facility] [place] [facility] [address] [id number] [place] [address] Dec, 2013 [facility] [place] [facility] [address] [id number] [place] [address] Nov, 2013 [facility] [place] [facility] [address] [id number] [place] [address] Nov, [facility] [place] [facility] [address] [id number] [place] [address] Nov, [facility] [place] [facility] [address] [id number] [place] [address] Nov, 2013 [facility] [place] [facility] [address] [id number] [place] [address] Nov, [facility] [place] [facility] [address] [id number] [place] [address] Nov, [facility] [place] [facility] [address] [id number] [place] [address] Nov, [facility] [place] [facility] [address] [id number] [place] [address] Nov, [facility] [place] [facility] [address] [id number] [place] [address] Oct, [facility] [place] [facility] [address] [id number] [place] [address] Oct, [facility] [place] [facility] [address] [facility] [id number] [facility] [place] [address] Oct, [facility] [place] [facility] [address] [facility] [id number] [facility] [place] [address] Oct, [facility] [place] [facility] [address] [id number] [place] [address] Sep, [facility] [place] [facility] [address] [facility] [id number] [facility] [place] [address] Sep, [facility] [place] [facility] [address] [facility] [id number] [facility] [place] [address] Sep, [facility] [place] [facility] [address] [id number] [place] [address] Sep, [facility] [place] [facility] [address] [id number] [place] [address] Sep, [facility] [place] [facility] [address] [id number] [place] [address] Sep, [facility] [place] [facility] [address] [id number] [place] [address] Sep, [facility] [place] [facility] [address] [id number] [place] [address] Sep, [facility] [place] [facility] [address] [id number] [place] [address] August, [facility] [place] [facility] [address] [id number] [place] [address] August, [facility] [place] [facility] [address] [id number] [place] [address] August, [facility] [place] [facility] [address] [id number] [place] [address] August, [facility] [place] [facility] [address] [id number] [place] [address] August, [facility] [place] [facility] [address] [id number] [place] [address] August, [facility] [place] [facility] [address] [id number] [place] [address] August, [facility] [place] [facility] [address] [facility] [id number] [place] [address] August, [facility] [place] [facility] [address] [id number] [place] [address] August, [facility] [place] [facility] [address] [id number] [place] [address] August, [facility] [place] [facility] [address] [id number] [place] [address] Jul, [facility] [place] [facility] [address] [id number] [place] [address] Jul, [facility] [place] [facility] [address] [id number] [place] [address] Jul, [facility] [place] [facility] [address] [id number] [place] [address] Jul, [facility] [place] [facility] [address] [id number] [place] [address] Jul, [facility] [place] [facility] [address] [id number] [place] [address] Jul, [facility] [place] [facility] [address] [id number] [place] [address] Jul, [facility] [place] [facility] [address] [id number] [place] [address] Jul, [facility] [place] [facility] [address] [id number] [place] [address] Jun, [facility] [place] [facility] [address] [id number] [place] [address] Jun, [facility] [place] [facility] [address] [id number] [place] [address] Jun, [facility] [place] [facility] [address] [id number] [place] [address] Jun, [facility] [place] [facility] [address] [id number] [place] [address] Jun, [facility] [place] [facility] [address] [facility] [id number] [place] [address] Jun, [facility] [place] [facility] [address] [facility] [id number] [place] [address] May, [facility] [place] [facility] [address] [facility] [id number] [place] [address] May, [facility] [place] [facility] [address] [facility] [id number] [place] [address] May, [facility] [place] [facility] [address] [facility] [id number] [place] [address] May, [facility] [place] [facility] [address] [id number] [place] [address] May, [facility] [place] [facility] [address] [id number] [place] [address] May, [facility] [place] [facility] [address] [id number] [place] [address] May, [facility] [place] [facility] [address] [facility] [id number] [place] [address] Apr, [facility] [place] [facility] [address] [id number] [place] [address] Apr, [facility] [place] [facility] [address] [id number] [place] [address] Apr, [facility] [place] [facility] [address] [id number] [place] [address] Apr, [facility] [place] [facility] [address] [facility] [id number] [place] [address] Apr, [facility] [place] [facility] [address] [facility] [id number] [place] [address] Apr, [facility] [place] [facility] [address] [facility] [id number] [place] [address] Mar, [facility] [place] [facility] [address] [id number] [place] [address] Mar, [facility] [place] [facility] [address] [id number] [place] [address] Mar, [facility] [place] [facility] [address] [id number] [place] [address] Mar, [facility] [place] [facility] [address] [id number] [place] [address] Mar, [facility] [place] [facility] [address] [id number] [place] [address] Mar, [facility] [place] [facility] [address] [id number] [place] [address] Mar, [facility] [place] [facility] [address] [id number] [place] [address] Mar, [facility] [place] [facility] [address] [id number] [place] [address] Mar, [facility] [place] [facility] [address] [id number] [place] [address] Mar, [facility] [place] [facility] [address] [id number] [place] [address] Feb, [facility] [place] [facility] [address] [id number] [place] [address] Feb, [facility] [place] [facility] [address] [id number] [place] [address] Feb, [facility] [place] [facility] [address] [id number] [place] [address] Feb, [facility] [place] [facility] [address] [id number] [place] [address] 14 Feb, 2013 [facility] [place] [facility] [address] [id number] [place] [address] 14 Feb, 2013 [facility] [place] [facility] [address] [facility] [id number] [place] [address] 11 Feb, 2013 [facility] [place] [facility] [address] [id number] [place] [address] Feb, [facility] [place] [facility] [address] [id number] [place] [address] 08 Feb, 2013 [facility] [place] [facility] [address] [facility] [id number] [place] [address] Feb, [facility] [place] [facility] [address] [id number] [place] [address] Jan, [facility] [place] [facility] [address] [id number] [place] [address] Jan, [facility] [place] [facility] [address] [id number] [place] [address] Jan, [facility] [place] [facility] [address] [id number] [place] [address] Jan, [facility] [place] [facility] [address] [id number] [place] [address] Jan, [facility] [place] [facility] [address] [id number] [place] [address] Jan, [facility] [place] [facility] [address] [id number] [place] [address] Jan, [facility] [place] [facility] [address] [id number] [place] [address] Jan, [facility] [place] [facility] [address] [id number] [place] [address] Jan, [facility] [place] [facility] [address] [id number] [place] [address] 25 Dec, 2012 [facility] [place] [facility] [address] [id number] [place] [address] 23 Dec, 2012 [facility] [place] [facility] [address] [id number] [place] [address] 21 Dec, 2012 [facility] [place] [facility] [address] [id number] [place] [address] 13 Dec, 2012 [facility] [place] [facility] [address] [id number] [place] [address] Nov, [facility] [place] [facility] [address] [id number] [place] [address] Nov, [facility] [place] [facility] [address] [id number] [place] [address] Nov, [facility] [place] [facility] [address] [facility] [id number] [place] [address] Nov, [facility] [place] [facility] [address] [facility] [id number] [facility] [place] [address] Nov, [facility] [place] [facility] [address] [id number] [place] [address] Nov, [facility] [place] [facility] [address] [id number] [facility] [place] [address] Oct, [facility] [place] [facility] [address] [facility] [id number] [facility] [place] [address] Oct, [facility] [place] [facility] [address] [id number] [place] [address] Oct, [facility] [place] [facility] [address] [id number] [place] [address] Oct, [facility] [place] [facility] [address] [id number] [place] [address] Sep, [facility] [place] [facility] [address] [facility] [id number] [place] [address] Sep, [facility] [place] [facility] [address] [id number] [place] [address] Sep, [facility] [place] [facility] [address] [id number] [place] [address] Sep, [facility] [place] [facility] [address] [id number] [place] [address] Sep, [facility] [place] [facility] [address] [facility] [id number] [place] [address] August, [facility] [place] [facility] [address] [facility] [id number] [place] [address] August, [facility] [place] [facility] [address] [id number] [place] [address] Jul, [facility] [place] [facility] [address] [id number] [place] [address] Jul, [facility] [place] [facility] [address] [id number] [place] [address] 15 Jul, 2012 [facility] [place] [facility] [address] [id number] [facility] [place] [address] 09 Jul, 2012 [facility] [place] [facility] [address] [id number] [place] [address] 08 Jul, 2012 [facility] [place] [facility] [address] [id number] [place] [address] 26 Jun, 2012 [facility] [place] [facility] [address] [id number] [place] [address] Jun, [facility] [place] [facility] [address] [id number] [place] [address] 15 Jun, 2012 [facility] [place] [facility] [address] [id number] [place] [address] 06 Jun, 2012 [facility] [place] [facility] [address] [id number] [place] [address] Jun, [facility] [place] [facility] [address] [id number] [place] [address] 28 May, 2012 [facility] [place] [facility] [address] [id number] [place] [address] 27 May, 2012 [facility] [place] [facility] [address] [id number] [place] [address] 25 May, 2012 [facility] [place] [facility] [address] [id number] [place] [address] May, [facility] [place] [facility] [address] [id number] [place] [address] 20 May, 2012 [facility] [place] [facility] [address] [id number] [place] [address] 14 May, 2012 [facility] [place] [facility] [address] [id number] [place] [address] 13 May, 2012 [facility] [place] [facility] [address] [id number] [place] [address] 08 May, 2012 [facility] [place] [facility] [address] [id number] [place] [address] May[facility] [address] [facility] [id number] [place] [address] Apr, [facility] [place] [facility] [address] [id number] [place] [address] Apr, [facility] [place] [facility] [address] [id number] [place] [address] Apr, [facility] [place] [facility] [address] [id number] [place] [address] Apr, [facility] [place] [facility] [address] [facility] [id number] [place] [address] Apr, [facility] [place] [facility] [address] [id number] [place] [address] Mar, [facility] [place] [facility] [address] [id number] [place] [address] Mar, [facility] [place] [facility] [address] [id number] [place] [address] Mar, [facility] [place] [facility] [address] [id number] [place] [address] Mar, [facility] [place] [facility] [address] [id number] [place] [address] Mar, [facility] [place] [facility] [address] [id number] [place] [address] Mar, [facility] [place] [facility] [address] [id number] [place] [address] Mar, [facility] [place] [facility] [address] [id number] [place] [address] Mar, [facility] [place] [facility] [address] [id number] [place] [address] Mar, [facility] [place] [facility] [address] [id number] [place] [address] Mar, [facility] [address] [id number] [place] [address] Feb, [facility] [address] [id number] [place] [address] 30 Feb, 2012 [facility] [address] [id number] [place] [address] Feb, [facility] [address] [id number] [place] [address] Feb, [facility] [address] [id number] [place] [address] Feb, [facility] [address] [id number] [place] [address] Feb, [facility] [address] [id number] [place] [address] Feb, [facility] [address] [id number] [place] [address] Feb, [facility] [address] [id number] [place] [address] Feb, [facility] [address] [id number] [place] [address] Feb, [facility] [address] [id number] [place] [address] Feb, [facility] [address] [id number] [place] [address] Feb, [facility] [address] [id number] [place] [address] Feb, [facility] [address] [id number] [place] [address] Feb, [facility] [address] [id number] [place] [address] Feb, [facility] [address] [id number] [place] [address] Feb, [facility] [address] [id number] [place] [address] Feb, [facility] [address] [id number] [place] [address] Feb, [facility] [address] [id number] [place] [address] Jan, 2011 [facility] [address] [id number] [place] [address] Jan, 2011 [facility] [address] [id number] [place] [address] Jan, 2011 [facility] [address] [id number] [place] [address] Jan, [facility] [address] [id number] [place] [address] Jan, [facility] [address] [id number] [place] [address] Jan, [facility] [address] [id number] [place] [address] Jan, [facility] [address] [id number] [place] [address] Jan, [facility] [address] [id number] [place] [address] Jan, [facility] [address] [id number] [place] [address] Jan, [facility] [address] [id number] [place] [address] 24 Dec, 2011 [facility] [address] [id number] [place] [address] 18 Dec, 2011 [facility] [address] [id number] [place] [address] Dec, 2011 [facility] [address] [id number] [place] [address] Dec, 2011 [facility] [address] [id number] [place] [address] Nov, [facility] [address] [id number] [place] [address] Nov, [facility] [address] [id number] [place] [address] Nov, [facility] [address] [facility] [id number] [place] [address] Nov, [facility] [address] [facility] [id number] [facility] [place] [address] Nov, [facility] [address] [id number] [place] [address] Nov, [facility] [address] [id number] [facility] [place] [address] Oct, [facility] [address] [facility] [id number] [place] [address] Oct, [facility] [address] [id number] [place] [address] Oct, [facility] [address] [id number] [place] [address] Oct, [facility] [address] [id number] [place] [address] Oct, [facility] [address] [id number] [place] [address] Sep, [facility] [address] [id number] [place] [address] Sep, [facility] [address] [id number] [place] [address] Sep, [facility] [address] [id number] [place] [address] Sep, [facility] [address] [id number] [place] [address] Sep, [facility] [address] [id number] [place] [address] August, [facility] [address] [id number] [place] [address] August, [facility] [address] [id number] [place] [address] August, [facility] [address] [id number] [facility] [place] [address] August, [facility] [address] [id number] [place] [address] Jul, [facility] [address] [id number] [place] [address] 24 Jul, 2011 [facility] [address] [id number] [place] [address] Jul, [facility] [address] [id number] [place] [address] Jul, [facility] [address] [id number] [place] [address] Jul, [facility] [address] [id number] [place] [address] Jul, [facility] [address] [id number] [place] [address] Jul, [facility] [address] [id number] [place] [address] Jul, [facility] [address] [id number] [place] [address] Jul, [facility] [address] [id number] [place] [address] Jul, [facility] [address] [id number] [place] [address] 05 Jul, 2011 [facility] [address] [id number] [place] [address] Jul, [facility] [address] [id number] [place] [address] Jul, [facility] [address] [id number] [place] [address] Jul, [facility] [address] [id number] [place] [address] Jun, [facility] [address] [id number] [place] [address] Jun, [facility] [address] [id number] [place] [address] Jun, [facility] [address] [id number] [place] [address] Jun, [facility] [address] [id number] [place] [address] 27 May, 2011 [facility] [id number] [place] [address] May, [facility] [address] [id number] [place] [address] May, [facility] [address] [id number] [place] [address] Apr, [facility] [address] [id number] [place] [address] Apr, [facility] [id number] [place] [address] Apr, [facility] [address] [id number] [place] [address] Apr, [facility] [id number] [place] [address] Apr, [facility] [address] [id number] [place] [address] Mar, [facility] [address] [id number] [place] [address] Mar, [facility] [address] [id number] [place] [address] Mar, [facility] [address] [id number] [place] [address] Mar, [facility] [address] [id number] [place] [address] Mar, [facility] [address] [id number] [place] [address] Mar, [facility] [address] [id number] [place] [address] 05 Mar, 2011 [facility] [address] [id number] [place] [address] 29 Feb, 2011 [facility] [address] [id number] [place] [address] Feb, [facility] [address] [id number] [place] [address] Feb, [facility] [address] [id number] [place] [address] 22 Feb, 2011 [facility] [address] [id number] [place] [address] 16 Feb, 2011 [facility] [address] [id number] [place] [address] 14 Feb, 2011 [facility] [address] [id number] [place] [address] 10 Feb, 2011 [facility] [address] [id number] [place] [address] 31 Jan, 2011 [facility] [address] [id number] [place] [address] 31 Jan, 2011 [facility] [address] [id number] [place] [address] 31 Jan, 2011 [facility] [address] [id number] [place] [address] 18 Jan, 2011 [facility] [address] [id number] [place] [address] 17 Jan, 2011 [facility] [address] [id number] [place] [address] 17 Jan, 2011 [facility] [address] [id number] [place] [address] 17 Jun, 2010 [facility] [address] [id number] [place] [address] 30 Mar, 2010 [facility] [address] [id number] [place] [address] Mar, [facility] [address] [id number] [place] [address] 14 Mar, 2010 [facility] [address] [id number] [place] [address] 14 Mar, 2010 [facility] [address] [id number] [place] [address] 13 Mar, 2010 [facility] [address] [id number] [place] [address] 07 Mar, 2010 [facility] [address] [id number] [place] [address] 02 Mar, 2010 [facility] [address] [id number] [place] [address] Mar, [facility] [address] [id number] [place] [address] 30 Feb, 2010 [facility] [address] [id number] [place] [address] 29 Feb, 2010 [facility] [address] [id number] [place] [address] 17 Feb, 2010 [facility] [address] [id number] [place] [address] 17 Feb, 2010 [facility] [address] [id number] [place] [address] 16 Feb, 2010 [facility] [address] [id number] [place] [address] 08 Feb, 2010 [facility] [address] [id number] [place] [address] 04 Feb, 2010 [facility] [address] [id number] [place] [address] Feb, [facility] [address] [id number] [place] [address] 28 Jan, 2010 [facility] [address] [id number] [place] [address] Jan, [facility] [address] [id number] [place] [address] Jan, [facility] [address] [id number] [place] [address] Jan, [facility] [id number] [place] [address] Mar, [facility] [address] [id number] [place] [address] Mar, [facility] [id number] [place] [address] Mar, [facility] [id number] [place] [address] Mar, [facility] [id number] [place] [address] Mar, [facility] [id number] [place] [address] Mar, [facility] [id number] [place] [address] Feb, [facility] [id number] [place] [address] Feb, [facility] [id number] [place] [address] Jan, [facility] [id number] [place] [address] Sep, [facility] [id number] [place] [address] May, IMMUNIZATIONS No Known Immunizations SOCIAL HISTORY [...] surgery Hospitalization History [facility] in [place]- Spontane ous Pneumothorax Hospitalization History [facility]- Colon resection Hospitalization History [facility] - diarrhea/ couldnt urin ate nov 2017 Hospitalization History pain /hip to foot right side 10/16/19 19
--- OUTSIDE RECORDS SUMMARY | 2019-08-28 08:54 | XMS REPORT ---
Author Author Dixon Reina Organization [facility] Address [address] [place] [address] Care Team Providers Care Regional Recruiter Name Role Phone CÉSAR Reina Unavailable PROBLEMS Type Condition ICD9-CM Code CQH74-HJ Code Onset Dates Condition S tatus SNOMED Code Problem Insomnia G47.00 Active 443248421 Problem Anxiety F41.9 Active 95639028 Problem HTN (hypertension) I10 Active 3 4071717 Problem Chronic pain G89.29 Active 8514299 1 Problem Constipation K59.00 Active 4723934 8 Problem Thoracic back pain, unspecif ied back pain laterality, unspecified chronicity M54.6 Active 944820403 Problem Hyperlipidemia E78.5 Active 10787 004 Problem Vitamin D deficiency E55.9 Active 33847102 Problem Chronic kidney disease, stage III (moderate) N18.3 Active 099044529 Problem Vision loss H54.7 Active 44476095 1 Problem Age-related cataract of both eyes, unspecified age-related cataract type H25.9 Active 07848483 Problem Primary insomnia F51.01 Active 397 2004 Problem Psychophysiologic insomnia F51.04 Act saúl 727676894 Problem Environmental allergies Z91.09 Active 729922328 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 65178912 Problem Schizophrenia, unspecified type F20.9 Active 25840636 Problem Psychophysiological insomnia F51.04 A ctive 198399512 Problem Psychophysiological insomnia F51.04 A ctive [id number] ALLERGIES No Information ENCOUNTERS Encounter Location Date Diagnosis [place] [id number] [place] [address] 10 Jun, 2019 Thoracic back pain, unspecified back hao n laterality, unspecified chronicity M54.6 [place] [address] [id number] [place] [address] Jun, [place] [address] [address] 04 Jun, 2019 Anxiety F41.9 and Thoracic back pain, un specified back pain laterality, unspecified chronicity M54.6 [place] [address] [id number] 04 Jun, 2019 [facility] [address] [address] May, [place] [address] [place] [address] [address] May, Psychophysiologic insomnia F51.04 [place] [address] [address] 13 May, 2019 Other constipation K59.09 [place] [address] [address] 11 May, 2019 Thoracic back pain, unspecified back hao n laterality, unspecified chronicity M54.6 [place] [address] [address] 06 May, 2019 Anxiety F41.9 and Thoracic back pain, un specified back pain laterality, unspecified chronicity M54.6 [place] [address] [address] 06 May, 2019 [place] [address] [address] Apr, [place] [address] [address] Apr, [place] [address] [address] Apr, Psychophysiological insomnia F51.04 [place] [address] [address] 15 Apr, 2019 Thoracic back pain, unspecified back hao n laterality, unspecified chronicity M54.6 [place] [address] [address] Apr, Thoracic back pain, unspecified back hao n laterality, unspecified chronicity M54.6 [place] [address] [address] Apr, Anxiety F41.9 [place] [address] [address] Apr, Psychophysiological insomnia F51.04 [place] [address] [address] 30 Mar, 2019 Encounter for Medicare annual wellness e xam [...] both eyes, unspecified age-related cataract type H25.9 [place] [address] [address] Mar, Thoracic back pain, unspecified back hao n laterality, unspecified chronicity M54.6 [place] [address] [address] Mar, Psychophysiological insomnia F51.04 [place] [address] [address] Mar, Thoracic back pain, unspecified back hao n laterality, unspecified chronicity M54.6 and Anxiety F41.9 [place] [address] [address] Mar, Psychophysiological insomnia F51.04 [place] [address] [address] Mar, [place] [address] [address] Mar, Psychophysiological insomnia F51.04 [place] [address] [address] Mar, [facility] [address] [address] Feb, [facility] [address] [address] Feb, Thoracic back pain, unspecified back hao n laterality, unspecified chronicity M54.6 [facility] [address] [address] Feb, Anxiety F41.9 and Thoracic back pain, un specified back pain laterality, unspecified chronicity M54.6 [place] [address] [address] Feb, Insomnia G47.00 ; HTN (hypertension) I10 and Constipation K59.00 [place] [address] [address] Feb, [facility] [address] [address] Jan, Thoracic back pain, unspecified back hao n laterality, unspecified chronicity M54.6 [place] [address] [address] Jan, Anxiety F41.9 [place] [address] [address] Jan, Anxiety F41.9 [facility] [address] [address] Jan, Anxiety F41.9 and Thoracic back pain, un specified back pain laterality, unspecified chronicity M54.6 [facility] [address] [address] Jan, [facility] [address] [address] Jan, [facility] [address] [address] Dec, Thoracic back pain, unspecified back hao n laterality, unspecified chronicity M54.6 [facility] [address] [address] Dec, Thoracic back pain, unspecified back hao n laterality, unspecified chronicity M54.6 [facility] [address] [address] Nov, Thoracic back pain, unspecified back hao n laterality, unspecified chronicity M54.6 [facility] [address] [address] Nov, Anxiety F41.9 and Thoracic back pain, un specified back pain laterality, unspecified chronicity M54.6 [facility] [address] [address] Nov, [facility] [address] [address] Nov, [facility] [address] [address] Nov, [facility] [address] [address] Oct, Thoracic back pain, unspecified back hao n laterality, unspecified chronicity M54.6 [facility] [address] [address] Oct, Anxiety F41.9 and Thoracic back pain, un specified back pain laterality, unspecified chronicity M54.6 [facility] [address] [address] Oct, Schizophrenia, unspecified type F20.9 an d Acute kidney injury N17.9 [facility] [address] [address] Oct, [facility] [address] [address] Oct, [facility] [address] [address] Oct, Thoracic back pain, unspecified back hao n laterality, unspecified chronicity M54.6 [facility] [address] [address] Oct, [facility] [address] [address] Oct, [facility] [address] [address] Sep, Anxiety F41.9 [facility] [address] [address] Sep, [facility] [address] [address] Sep, Thoracic back pain, unspecified back hao n laterality, unspecified chronicity M54.6 [facility] [address] [address] Sep, [facility] [address] [address] Sep, [facility] [address] [address] Sep, [facility] [address] [address] Sep, [facility] [address] [address] Sep, [facility] [address] [address] Sep, [facility] [address] [address] Sep, Chronic pain G89.29 ; Chronic kidney dis ease, stage III (moderate) N18.3 ; Hyperlipidemia E78.5 and Insomnia G47.00 [facility] [address] [address] Sep, Thoracic back pain, unspecified back hao n laterality, unspecified chronicity M54.6 [facility] [address] [address] August, Anxiety F41.9 [facility] [address] [address] August, Thoracic back pain, unspecified back hao n laterality, unspecified chronicity M54.6 and Anxiety F41.9 [facility] [address] [address] August, 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 [facility] [address] [address] August, 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 [facility] [address] [address] August, [facility] [address] [address] August, [facility] [address] [address] August, Thoracic back pain, unspecified back hao n laterality, unspecified chronicity M54.6 [facility] [address] [address] August, [facility] [address] [address] August, Anxiety F41.9 and Thoracic back pain, un specified back pain laterality, unspecified chronicity M54.6 [facility] [address] [address] Jul, [facility] [address] [address] Jul, Thoracic back pain, unspecified back hao n laterality, unspecified chronicity M54.6 [facility] [address] [address] Jun, Anxiety F41.9 and Thoracic back pain, un specified back pain laterality, unspecified chronicity M54.6 [facility] [address] [address] Jun, Anxiety F41.9 and Thoracic back pain, un specified back pain laterality, unspecified chronicity M54.6 [place] [address] [address] Jun, Thoracic back pain, unspecified back hao n laterality, unspecified chronicity M54.6 [place] [address] [address] Jun, Anxiety F41.9 and Thoracic back pain, un specified back pain laterality, unspecified chronicity M54.6 [place] [address] [address] May, [place] [address] [address] May, [place] [address] [address] May, [place] [address] [address] May, Anxiety F41.9 and Encounter for medicati on monitoring Z51.81 [place] [address] [address] May, Anxiety F41.9 and Thoracic back pain, un specified back pain laterality, unspecified chronicity M54.6 [place] [address] [address] Apr, Hyperlipidemia 272.4 [place] [address] [address] Apr, Chronic pain G89.29 ; Anxiety F41.9 ; Ce rvical radiculopathy M54.12 and Vision loss H54.7 [place] [address] [address] Apr, [place] [address] [address] Apr, Anxiety F41.9 and Thoracic back pain, un specified back pain laterality, unspecified chronicity M54.6 [facility] [address] [address] 17 Mar, 2018 [facility] [address] [address] Mar, Anxiety F41.9 and Thoracic back pain, un specified back pain laterality, unspecified chronicity M54.6 [place] [address] [address] 14 Feb, 2018 Anxiety F41.9 and Thoracic back pain, un specified back pain laterality, unspecified chronicity M54.6 [place] [address] [address] 07 Feb, 2018 Thoracic back pain, unspecified back hao n laterality, unspecified chronicity M54.6 [place] [address] [address] 29 Jan, 2018 [place] [address] [address] Jan, Anxiety F41.9 and Thoracic back pain, un specified back pain laterality, unspecified chronicity M54.6 [place] [address] [address] Dec, Diarrhea of presumed infectious origin R 19.7 [place] [address] [address] Dec, Diarrhea of presumed infectious origin R 19.7 [place] [address] [address] 18 Dec, 2017 Thoracic back pain, unspecified back hao n laterality, unspecified chronicity M54.6 [place] [address] [address] Dec, [place] [address] [address] Dec, Anxiety F41.9 and Thoracic back pain, un specified back pain laterality, unspecified chronicity M54.6 [place] [address] [address] Dec, Diarrhea of presumed infectious origin R 19.7 [place] [address] [address] Dec, [place] [address] [address] Dec, Anxiety F41.9 and Thoracic back pain, un specified back pain laterality, unspecified chronicity M54.6 [place] [address] [address] Dec, Anxiety F41.9 and Thoracic back pain, un specified back pain laterality, unspecified chronicity M54.6 [facility] [address] [place] [id number] Dec, Diarrhea of presumed infectious origin R 19.7 ; Anxiety F41.9 ; Thoracic back pain, unspecified back pain laterality, unspecified chronicity M54.6 and HTN (hypertension) I10 [address] [address] Dec, Anxiety F41.9 [facility] [address] [place] [id number] Dec, Anxiety F41.9 ; Diarrhea of presumed inf ectious origin R19.7 ; Generalized abdominal pain R10.84 and Localized edema R60.[address] [address] Nov, [facility] [address] [place] [id number] Nov, Anxiety F41.9 ; Urinary retention R33.9 ; Diarrhea of presumed infectious origin R19.7 ; Weakness R53.1 ; Acute kidney failure, unspecified N17.9 ; Chronic kidney disease, stage III (moderate) N18.3 and Thoracic back pain, unspecified back pain laterality, unspecified chronicity M54.6 [place] [address] [address] Oct, Thoracic back pain, unspecified back hao n laterality, unspecified chronicity M54.6 and Anxiety F41.9 [place] [address] [address] Sep, Thoracic back pain, unspecified back hao n laterality, unspecified chronicity M54.6 and Anxiety F41.9 [place] [address] [address] Sep, Thoracic back pain, unspecified back hao n laterality, unspecified chronicity M54.6 ; Anxiety F41.9 and Encounter for medication monitoring Z51.81 [place] [address] [address] August, [place] [address] [address] August, Thoracic back pain, unspecified back hao n laterality, unspecified chronicity M54.6 and Anxiety F41.9 [place] [address] [address] August, Hyperlipidemia E78.5 and HTN (hypertensi on) I10 [place] [address] [address] August, [place] [address] [address] August, Medicare welcome exam Z00.00 ; Chronic k idney failure N18.9 ; Anxiety F41.9 ; Chronic pain G89.29 ; Insomnia G47.00 ; Hyperlipidemia E78.5 ; HTN (hypertension) I10 and Thoracic back pain, unspecified back pain laterality, unspecified chronicity M54.6 [place] [address] [address] Jul, [place] [address] [address] Jul, [place] [address] [address] Jul, [place] [address] [address] Jul, Anxiety F41.9 [place] [address] [address] Jul, Thoracic back pain, unspecified back hao n laterality, unspecified chronicity M54.6 and Anxiety F41.9 [place] [address] [address] Jun, Thoracic back pain, unspecified back hao n laterality, unspecified chronicity M54.6 and Anxiety F41.9 [place] [address] [address] May, Thoracic back pain, unspecified back hao n laterality, unspecified chronicity M54.6 and Anxiety F41.9 [place] [address] [address] Apr, Thoracic back pain, unspecified back hao n laterality, unspecified chronicity M54.6 and Anxiety F41.9 [place] [address] [address] Mar, [place] [address] [address] Mar, Thoracic back pain, unspecified back hao n laterality, unspecified chronicity M54.6 and Anxiety F41.9 [place] [address] [address] Mar, Thoracic back pain, unspecified back hao n laterality, unspecified chronicity M54.6 ; HTN (hypertension) I10 ; Hyperlipidemia E78.5 and Anxiety F41.9 [place] [address] [address] Feb, Thoracic back pain, unspecified back hao n laterality, unspecified chronicity M54.6 and Anxiety F41.9 [place] [address] [address] Nov, [place] [address] [address] Oct, [facility] [address] [address] Oct, Thoracic back pain, unspecified back hao n laterality, unspecified chronicity M54.6 [facility] [address] [address] Oct, HTN (hypertension) I10 ; Constipation K5 9.00 ; Hyperlipidemia E78.5 ; Thoracic back pain, unspecified back pain laterality, unspecified chronicity M54.6 ; Chronic pain G89.29 ; Anxiety F41.9 ; Chronic kidney failure N18.9 ; Environmental allergies Z91.09 ; Vitamin D deficiency E55.9 and Primary insomnia F51.01 [place] [address] [address] Sep, Anxiety F41.9 [place] [address] [address] Sep, [facility] [address] [address] August, Anxiety F41.9 [facility] [address] [address] August, [place] [address] [address] Jul, Anxiety F41.9 [facility] [address] [address] Jul, [facility] [address] [address] Jun, Anxiety F41.9 [facility] [address] [address] Jun, [facility] [address] [address] May, [facility] [address] [address] May, [facility] [address] [address] May, [facility] [address] [address] Apr, [facility] [address] [address] Apr, [facility] [address] [address] Apr, Anxiety F41.9 [facility] [address] [address] Apr, Anxiety F41.9 [facility] [address] [address] Apr, [facility] [address] [address] Mar, HTN (hypertension) I10 ; Tremor R25.1 ; Hypercholesterolemia E78.0 ; Constipation K59.00 ; Chronic pain G89.29 ; Hyperlipidemia E78.5 ; Insomnia G47.00 ; Anxiety F41.9 and Thoracic back pain, unspecified back pain laterality, unspecified chronicity M54.6 [facility] [address] [address] Mar, Tremor R25.1 ; HTN (hypertension) I10 ; Hypercholesterolemia E78.0 ; Constipation K59.00 ; Chronic pain G89.29 ; Hyperlipidemia E78.5 ; Insomnia G47.00 ; Anxiety F41.9 and Thoracic back pain, unspecified back pain laterality, unspecified chronicity M54.6 [facility] [id number] [place] [address] Mar, [facility] [address] [address] Mar, [facility] [address] [address] Feb, [facility] [address] [address] Jan, [facility] [address] [place] [address] Jan, [facility] [address] [address] Dec, [facility] [address] [address] Nov, [facility] [address] [address] Nov, [facility] [address] [address] Oct, Anxiety F41.9 [facility] [address] [address] Oct, Chronic pain G89.29 [facility] [address] [address] Sep, [facility] [address] [address] Sep, [facility] [address] [address] Sep, [facility] [address] [address] Sep, [facility] [address] [address] Sep, Chronic pain syndrome G89.4 [facility] [address] [address] Sep, HTN (hypertension) I10 ; Chronic pain G8 9.29 ; Hypercholesterolemia E78.0 ; Chronic kidney failure N18.9 ; Constipation, unspecified constipation type K59.00 ; Anxiety F41.9 and Thoracic back pain, unspecified back pain laterality, unspecified chronicity M54.6 [facility] [address] [address] August, Chronic pain syndrome G89.4 [facility] [address] [address] August, Chronic pain syndrome G89.4 [facility] [id number] [place] [address] Jul, Anxiety disorder, unspecified F41.9 and Chronic pain syndrome G89.4 [facility] [address] [address] Jul, Insomnia, unspecified G47.00 and Chronic pain syndrome G89.4 [facility] [address] [address] Jul, Allergic rhinitis J30.9 [facility] [address] [address] Jul, Constipation, unspecified K59.00 [facility] [address] [address] Jul, [facility] [address] [address] Jun, [facility] [address] [address] Jun, [facility] [address] [address] Jun, [facility] [address] [address] Jun, [facility] [address] [address] Jun, [facility] [address] [address] Jun, [facility] [address] [address] May, [facility] [address] [address] May, [facility] [address] [address] May, Anxiety F41.9 ; Insomnia G47.00 ; Hyperl ipidemia E78.5 ; Chronic pain G89.29 ; HTN (hypertension) I10 ; Environmental allergies V15.09 and Constipation 564.00 [facility] [address] [address] Apr, [facility] [address] [address] Apr, [facility] [address] [address] Apr, [facility] [address] [address] Mar, [facility] [address] [address] Mar, [facility] [address] [address] Mar, [facility] [address] [address] Feb, [facility] [address] [address] Feb, [facility] [address] [address] Feb, [facility] [address] [address] Jan, HTN (hypertension) I10 ; Constipation K5 9.00 ; Chronic pain G89.29 ; Hyperlipidemia E78.5 ; Hypercholesterolemia E78.0 ; Insomnia G47.00 and Anxiety F41.9 [facility] [address] [address] Jan, [facility] [address] [address] Dec, [facility] [address] [address] Nov, [facility] [address] [address] Oct, Chronic kidney disease, unspecified 585. 9 ; Chronic pain syndrome 338.4 ; Hyperlipidemia 272.4 and Essential hypertension 401.9 [facility] [address] [address] Oct, Chronic kidney disease 585.9 [facility] [address] [address] Oct, [facility] [address] [address] Oct, Chronic kidney disease, unspecified 585. 9 ; Hypercalcemia 275.42 ; Hyperlipidemia 272.4 ; Essential hypertension 401.9 ; Chronic pain syndrome 338.4 ; Insomnia 780.52 ; Constipation 564.00 ; Environmental allergies V15.09 and Anxiety 300.00 [facility] [address] [address] Oct, Chronic kidney disease 585.9 [facility] [address] [address] Oct, [facility] [address] [address] Oct, Chronic kidney disease 585.9 and Hyperli pidemia 272.4 [facility] [address] [address] Oct, [facility] [address] [address] Oct, [facility] [address] [address] Sep, [facility] [address] [address] Sep, [facility] [address] [address] Sep, Chronic kidney disease 585.9 and Hyperli pidemia 272.4 [facility] [address] [address] Sep, [facility] [address] [address] August, [facility] [address] [id number] [place] [address] August, [facility] [address] [id number] [place] [address] 14 Jul, 2014 [facility] [address] [id number] [place] [address] Jul, [facility] [address] [id number] [place] [address] Jun, [facility] [address] [id number] [place], [place] [address] Jun, [facility] [place] [facility] [address] [id number] [place] [address] Jun, [facility] [place] [facility] [address] [id number] [place] [address] Jun, [facility] [place] [facility] [address] [id number] [place] [address] Jun, [facility] [place] [facility] [address] [id number] [place] [address] Jun, [facility] [place] [facility] [address] [id number] [place] [address] Jun, [facility] [place] [facility] [address] [id number] [place] [address] Jun, [facility] [place] [facility] [address] [id number] [place] [address] May, [facility] [place] [facility] [address] [id number] [place] [address] May, [facility] [place] [facility] [address] [id number] [place] [address] May, [facility] [place] [facility] [address] [id number] [place] [address] May, [facility] [place] [facility] [address] [id number] [place] [address] Apr, [facility] [place] [facility] [address] [id number] [place] [address] Apr, [facility] [place] [facility] [address] [facility] [id number] [place] [address] Apr, [facility] [place] [facility] [address] [id number] [place] [address] Apr, [facility] [place] [facility] [address] [id number] [place] [address] Apr, [facility] [place] [facility] [address] [id number] [place] [address] Apr, [facility] [place] [facility] [address] [id number] [place] [address] Apr, [facility] [place] [facility] [address] [id number] [place] [address] Apr, [facility] [place] [facility] [address] [id number] [place] [address] Apr, [facility] [place] [facility] [address] [id number] [place] [address] Apr, [facility] [place] [facility] [address] [id number] [place] [address] Apr, [facility] [place] [facility] [address] [id number] [place] [address] Mar, [facility] [place] [facility] [address] [id number] [place] [address] Mar, [facility] [place] [facility] [address] [id number] [place] [address] Feb, [facility] [place] [facility] [address] [id number] [place] [address] Feb, [facility] [place] [facility] [address] [id number] [place] [address] Feb, [facility] [place] [facility] [address] [id number] [place] [address] Feb, [facility] [place] [facility] [address] [id number] [place] [address] Feb, [facility] [place] [facility] [address] [id number] [place] [address] Feb, [facility] [place] [facility] [address] [id number] [place] [address] Feb, [facility] [place] [facility] [address] [id number] [place] [address] Feb, [facility] [place] [facility] [address] [id number] [place] [address] Feb, [facility] [place] [facility] [address] [id number] [place] [address] Feb, [facility] [place] [facility] [address] [id number] [place] [address] Jan, [facility] [place] [facility] [address] [id number] [place] [address] Jan, [facility] [place] [facility] [address] [id number] [place] [address] Jan, [facility] [place] [facility] [address] [id number] [place] [address] Jan, [facility] [place] [facility] [address] [id number] [place] [address] Jan, [facility] [place] [facility] [address] [id number] [place] [address] Jan, [facility] [place] [facility] [address] [id number] [place] [address] Jan, [facility] [place] [facility] [address] [id number] [place] [address] Jan, [facility] [place] [facility] [address] [id number] [place] [address] Jan, [facility] [place] [facility] [id number] [place] [address] Jan, [facility] [place] [facility] [address] [id number] [place] [address] Jan, [facility] [place] [facility] [address] [id number] [place] [address] Dec, [facility] [place] [facility] [address] [id number] [place] [address] 26 Dec, 2013 [facility] [place] [facility] [address] [id number] [facility] [place] [address] Dec, 2013 [facility] [place] [facility] [address] [facility] [id number] [place] [address] 19 Dec, 2013 [facility] [place] [facility] [address] [id number] [facility] [place] [address] 18 Dec, 2013 [facility] [place] [facility] [address] [facility] [id number] [place] [address] 18 Dec, 2013 [facility] [place] [facility] [address] [id number] [place] [address] Dec, 2013 [facility] [place] [facility] [address] [id number] [place] [address] Dec, 2013 [facility] [place] [facility] [address] [id number] [place] [address] Nov, 2013 [facility] [place] [facility] [address] [id number] [place] [address] Nov, 2013 [facility] [place] [facility] [address] [id number] [place] [address] Nov, [facility] [place] [facility] [address] [id number] [place] [address] Nov, 2013 [facility] [place] [facility] [address] [id number] [place] [address] Nov, 2013 [facility] [place] [facility] [address] [id number] [place] [address] Nov, 2013 [facility] [place] [facility] [address] [id number] [place] [address] Nov, [facility] [place] [facility] [address] [id number] [place] [address] Nov, [facility] [place] [facility] [address] [id number] [place] [address] Oct, [facility] [place] [facility] [address] [id number] [facility] [place] [address] Oct, [facility] [place] [facility] [address] [facility] [id number] [facility] [place] [address] Oct, [facility] [place] [facility] [address] [facility] [id number] [place] [address] Oct, [facility] [place] [facility] [address] [id number] [place] [address] Sep, [facility] [place] [facility] [address] [facility] [id number] [place] [address] Sep, [facility] [place] [facility] [address] [facility] [id number] [place] [address] Sep, [facility] [place] [facility] [address] [id number] [place] [address] Sep, [facility] [place] [facility] [address] [id number] [place] [address] Sep, [facility] [place] [facility] [address] [id number] [place] [address] Sep, [facility] [place] [facility] [address] [id number] [place] [address] Sep, [facility] [place] [facility] [address] [id number] [place] [address] Sep, [facility] [place] [facility] [address] [id number] [place] [address] August, [facility] [place] [facility] [address] [id number] [place] [address] August, [facility] [place] [facility] [address] [facility] [id number] [place] [address] August, [facility] [place] [facility] [address] [id number] [place] [address] August, [facility] [place] [facility] [address] [id number] [place] [address] August, [facility] [place] [facility] [address] [id number] [place] [address] August, [facility] [place] [facility] [address] [id number] [place] [address] August, [facility] [place] [facility] [address] [id number] [place] [address] August, [facility] [place] [facility] [address] [id number] [place] [address] August, [facility] [place] [facility] [address] [id number] [place] [address] August, [facility] [place] [facility] [address] [id number] [place] [address] Jul, [facility] [place] [facility] [address] [id number] [place] [address] Jul, [facility] [place] [facility] [address] [id number] [place] [address] Jul, [facility] [place] [facility] [address] [id number] [place] [address] Jul, [facility] [place] [facility] [address] [id number] [place] [address] Jul, [facility] [place] [facility] [address] [id number] [place] [address] Jul, [facility] [place] [facility] [address] [id number] [place] [address] Jul, [facility] [place] [facility] [address] [id number] [place] [address] Jul, [facility] [place] [facility] [address] [id number] [place] [address] Jun, [facility] [place] [facility] [address] [id number] [place] [address] Jun, [facility] [place] [facility] [address] [id number] [place] [address] Jun, [facility] [place] [facility] [address] [id number] [place] [address] Jun, [facility] [place] [facility] [address] [id number] [place] [address] Jun, [facility] [place] [facility] [address] [id number] [place] [address] Jun, [facility] [place] [facility] [address] [id number] [place] [address] May, [facility] [place] [facility] [address] [id number] [place] [address] May, [facility] [place] [facility] [address] [id number] [place] [address] May, [facility] [place] [facility] [address] [facility] [id number] [place] [address] May, [facility] [place] [facility] [address] [id number] [place] [address] May, [facility] [place] [facility] [address] [id number] [place] [address] May, [facility] [place] [facility] [address] [id number] [place] [address] May, [facility] [place] [facility] [address] [id number] [place] [address] Apr, [facility] [place] [facility] [address] [id number] [place] [address] Apr, [facility] [place] [facility] [address] [id number] [place] [address] Apr, [facility] [place] [facility] [address] [id number] [place] [address] Apr, [facility] [place] [facility] [address] [id number] [place] [address] Apr, [facility] [place] [facility] [address] [id number] [place] [address] Apr, [facility] [place] [facility] [address] [id number] [place] [address] Mar, [facility] [place] [facility] [address] [id number] [place] [address] Mar, [facility] [place] [facility] [address] [id number] [place] [address] Mar, 2012 [facility] [place] [facility] [address] [id number] [place] [address] Mar, 2012 [facility] [place] [facility] [address] [id number] [place] [address] Mar, [facility] [place] [facility] [address] [id number] [place] [address] 19 Mar, 2013 [facility] [place] [facility] [address] [id number] [place] [address] 16 Mar, 2013 [facility] [place] [facility] [address] [id number] [place] [address] 16 Mar, 2013 [facility] [place] [facility] [address] [id number] [place] [address] Mar, [facility] [place] [facility] [address] [id number] [place] [address] Mar, [facility] [place] [facility] [address] [id number] [place] [address] Feb, [facility] [place] [facility] [address] [id number] [place] [address] 25 Feb, 2013 [facility] [place] [facility] [address] [id number] [place] [address] 25 Feb, 2013 [facility] [place] [facility] [address] [id number] [place] [address] 25 Feb, 2013 [facility] [place] [facility] [address] [id number] [place] [address] 14 Feb, 2013 [facility] [place] [facility] [address] [id number] [place] [address] 14 Feb, 2013 [facility] [place] [facility] [address] [id number] [place] [address] 11 Feb, 2013 [facility] [place] [facility] [address] [id number] [place] [address] 11 Feb, 2013 [facility] [place] [facility] [address] [id number] [place] [address] 08 Feb, 2013 [facility] [place] [facility] [address] [facility] [id number] [place] [address] 08 Feb, 2013 [facility] [place] [facility] [address] [id number] [place] [address] Jan, [facility] [place] [facility] [address] [id number] [place] [address] Jan, [facility] [place] [facility] [address] [id number] [place] [address] Jan, [facility] [place] [facility] [address] [facility] [id number] [place] [address] Jan, [facility] [place] [facility] [address] [id number] [place] [address] Jan, [facility] [place] [facility] [address] [id number] [place] [address] Jan, [facility] [place] [facility] [address] [id number] [place] [address] Jan, [facility] [place] [facility] [address] [id number] [place] [address] Jan, [facility] [place] [facility] [address] [id number] [place] [address] Jan, [facility] [place] [facility] [address] [id number] [place] [address] 25 Dec, 2012 [facility] [place] [facility] [address] [id number] [place] [address] 23 Dec, 2012 [facility] [place] [facility] [address] [id number] [place] [address] 21 Dec, 2012 [facility] [place] [facility] [address] [id number] [place] [address] 13 Dec, 2012 [facility] [place] [facility] [address] [id number] [place] [address] Nov, [facility] [place] [facility] [address] [id number] [place] [address] Nov, [facility] [place] [facility] [address] [id number] [place] [address] Nov, [facility] [place] [facility] [address] [id number] [facility] [place] [address] Nov, [facility] [place] [facility] [address] [facility] [id number] [facility] [place] [address] Nov, [facility] [place] [facility] [address] [id number] [facility] [place] [address] Nov, [facility] [place] [facility] [address] [id number] [place] [address] Oct, [facility] [place] [facility] [address] [facility] [id number] [facility] [place] [address] Oct, [facility] [place] [facility] [address] [id number] [facility] [place] [address] Oct, [facility] [place] [facility] [address] [id number] [place] [address] Oct, [facility] [place] [facility] [address] [id number] [place] [address] Sep, [facility] [place] [facility] [address] [id number] [facility] [place] [address] Sep, [facility] [place] [facility] [address] [id number] [place] [address] Sep, [facility] [place] [facility] [address] [id number] [place] [address] Sep, [facility] [place] [facility] [address] [id number] [place] [address] Sep, [facility] [place] [facility] [address] [id number] [facility] [place] [address] August, [facility] [place] [facility] [address] [id number] [place] [address] August, [facility] [place] [facility] [address] [id number] [place] [address] Jul, [facility] [place] [facility] [address] [id number] [place] [address] Jul, [facility] [place] [facility] [address] [id number] [place] [address] 15 Jul, 2012 [facility] [place] [facility] [address] [id number] [place] [address] 09 Jul, 2012 [facility] [address] [id number] [place] [address] 08 Jul, 2012 [facility] [address] [id number] [place] [address] 26 Jun, 2012 [facility] [address] [id number] [place] [address] 20 Jun, 2012 [facility] [address] [id number] [place] [address] 15 Jun, 2012 [facility] [address] [id number] [place] [address] 06 Jun, 2012 [facility] [address] [id number] [place] [address] Jun, [facility] [address] [id number] [place] [address] 28 May, 2012 [facility] [address] [id number] [place] [address] 27 May, 2012 [facility] [address] [id number] [place] [address] 25 May, 2012 [facility] [address] [id number] [place] [address] 21 May, 2012 [facility] [address] [id number] [place] [address] 20 May, 2012 [facility] [address] [id number] [place] [address] 14 May, 2012 [facility] [address] [id number] [place] [address] 13 May, 2012 [facility] [address] [id number] [place] [address] 08 May, 2012 [facility] [address] [id number] [place] [address] May, [facility] [address] [id number] [place] [address] Apr, [facility] [address] [id number] [place] [address] Apr, [facility] [address] [id number] [place] [address] Apr, [facility] [address] [id number] [place] [address] Apr, [facility] [address] [id number] [place] [address] Apr, [facility] [address] [id number] [place] [address] Mar, [facility] [address] [id number] [place] [address] Mar, [facility] [address] [id number] [place] [address] Mar, [facility] [address] [id number] [place] [address] Mar, [facility] [address] [id number] [place] [address] Mar, [facility] [address] [id number] [place] [address] Mar, [facility] [address] [id number] [place] [address] Mar, [facility] [address] [id number] [place] [address] Mar, [facility] [address] [id number] [place] [address] Mar, [facility] [address] [id number] [place] [address] Mar, [facility] [address] [id number] [place] [address] Feb, [facility] [address] [id number] [place] [address] 30 Feb, 2012 [facility] [address] [id number] [place] [address] Feb, [facility] [address] [id number] [place] [address] Feb, [facility] [address] [id number] [place] [address] Feb, [facility] [address] [id number] [place] [address] Feb, [facility] [address] [id number] [place] [address] Feb, [facility] [address] [id number] [place] [address] Feb, [facility] [address] [id number] [place] [address] Feb, [facility] [address] [id number] [place] [address] 16 Feb, 2012 [facility] [address] [id number] [place] [address] Feb, [facility] [address] [id number] [place] [address] Feb, [facility] [address] [id number] [place] [address] Feb, [facility] [address] [id number] [place] [address] Feb, [facility] [address] [id number] [place] [address] Feb, [facility] [address] [id number] [place] [address] Feb, [facility] [address] [id number] [place] [address] Feb, [facility] [address] [id number] [place] [address] Feb, [facility] [address] [id number] [place] [address] Jan, 2011 [facility] [address] [id number] [place] [address] Jan, 2011 [facility] [address] [id number] [place] [address] Jan, 2011 [facility] [address] [id number] [place] [address] Jan, 2011 [facility] [facility] [address] [id number] [place] [address] Jan, [facility] [address] [id number] [place] [address] Jan, [facility] [address] [id number] [place] [address] Jan, [facility] [address] [id number] [place] [address] Jan, [facility] [address] [id number] [place] [address] Jan, [facility] [address] [id number] [place] [address] Jan, [facility] [address] [id number] [place] [address] 24 Dec, 2011 [facility] [address] [id number] [place] [address] 18 Dec, 2011 [facility] [address] [id number] [place] [address] Dec, 2011 [facility] [address] [id number] [place] [address] Dec, [facility] [address] [id number] [place] [address] Nov, [facility] [address] [id number] [place] [address] Nov, [facility] [address] [id number] [place] [address] Nov, [facility] [address] [facility] [id number] [place] [address] Nov, [facility] [address] [id number] [facility] [place] [address] Nov, [facility] [address] [id number] [place] [address] Nov, [facility] [address] [id number] [place] [address] Oct, [facility] [address] [id number] [facility] [place] [address] Oct, [facility] [address] [id number] [place] [address] Oct, [facility] [address] [id number] [place] [address] Oct, [facility] [address] [id number] [place] [address] Oct, [facility] [address] [id number] [place] [address] Sep, [facility] [address] [id number] [place] [address] Sep, [facility] [address] [id number] [place] [address] Sep, [facility] [address] [id number] [place] [address] Sep, [facility] [address] [id number] [place] [address] Sep, [facility] [address] [id number] [place] [address] August, [facility] [address] [id number] [place] [address] August, [facility] [address] [id number] [place] [address] August, [facility] [address] [id number] [place] [address] August, [facility] [address] [id number] [place] [address] 27 Jul, 2011 [facility] [address] [id number] [place] [address] 24 Jul, 2011 [facility] [address] [id number] [place] [address] Jul, [facility] [address] [id number] [place] [address] Jul, [facility] [address] [id number] [place] [address] Jul, [facility] [address] [id number] [place] [address] Jul, [facility] [address] [id number] [place] [address] Jul, [facility] [address] [id number] [place] [address] 10 Jul, 2011 [facility] [address] [id number] [place] [address] Jul, [facility] [address] [id number] [place] [address] 07 Jul, 2011 [facility] [address] [id number] [place] [address] 05 Jul, 2011 [facility] [address] [id number] [place] [address] Jul, [facility] [address] [id number] [place] [address] Jul, [facility] [address] [id number] [place] [address] Jul, [facility] [address] [id number] [place] [address] Jun, [facility] [address] [id number] [place] [address] Jun, [facility] [address] [id number] [place] [address] 20 Jun, 2011 [facility] [address] [id number] [place] [address] 16 Jun, 2011 [facility] [address] [id number] [place] [address] 27 May, 2011 [facility] [address] [id number] [place] [address] 16 May, 2011 [facility] [address] [id number] [place] [address] 09 May, 2011 [facility] [address] [id number] [place] [address] 26 Apr, 2011 [facility] [address] [id number] [place] [address] 18 Apr, 2011 [facility] [address] [id number] [place] [address] Apr, [facility] [address] [id number] [place] [address] Apr, [facility] [address] [id number] [place] [address] 09 Apr, 2011 [facility] [address] [id number] [place] [address] Mar, [facility] [address] [id number] [place] [address] Mar, [facility] [address] [id number] [place] [address] Mar, [facility] [address] [id number] [place] [address] Mar, [facility] [address] [id number] [place] [address] 16 Mar, 2011 [facility] [address] [id number] [place] [address] 09 Mar, 2011 [facility] [address] [id number] [place] [address] 05 Mar, 2011 [facility] [address] [id number] [place] [address] 29 Feb, 2011 [facility] [address] [id number] [place] [address] 25 Feb, 2011 [facility] [address] [id number] [place] [address] Feb, [facility] [address] [id number] [place] [address] 22 Feb, 2011 [facility] [address] [id number] [place] [address] 16 Feb, 2011 [facility] [address] [id number] [place] [address] 14 Feb, 2011 [facility] [address] [id number] [place] [address] 10 Feb, 2011 [facility] [address] [id number] [place] [address] 31 Jan, 2011 [facility] [address] [id number] [place] [address] 31 Jan, 2011 [facility] [address] [id number] [place] [address] 31 Jan, 2011 [facility] [address] [id number] [place] [address] 18 Jan, 2011 [facility] [address] [id number] [place] [address] 17 Jan, 2011 [facility] [address] [id number] [place] [address] 17 Jan, 2011 [facility] [address] [id number] [place] [address] 17 Jun, 2010 [facility] [address] [id number] [place] [address] 30 Mar, 2010 [facility] [address] [id number] [place] [address] 20 Mar, 2010 [facility] [address] [id number] [place] [address] 14 Mar, 2010 [facility] [address] [id number] [place] [address] 14 Mar, 2010 [facility] [address] [id number] [place] [address] 13 Mar, 2010 [facility] [address] [id number] [place] [address] 07 Mar, 2010 [facility] [address] [id number] [place] [address] 02 Mar, 2010 [facility] [address] [id number] [place] [address] Mar, [facility] [address] [id number] [place] [address] 30 Feb, 2010 [facility] [address] [id number] [place] [address] 29 Feb, 2010 [facility] [address] [id number] [place] [address] 17 Feb, 2010 [facility] [address] [id number] [place] [address] 17 Feb, 2010 [facility] [address] [id number] [place] [address] 16 Feb, 2010 [facility] [address] [id number] [place] [address] 08 Feb, 2010 [facility] [address] [id number] [place] [address] 04 Feb, 2010 [facility] [address] [id number] [place] [address] Feb, [facility] [address] [id number] [place] [address] 28 Jan, 2010 [facility] [address] [id number] [place] [address] Jan, [facility] [address] [id number] [place] [address] Jan, [facility] [address] [id number] [place] [address] Jan, [facility] [id number] [place] [address] Mar, [facility] [address] [id number] [place] [address] Mar, [facility] [id number] [place] [address] Mar, [facility] [address] [id number] [place] [address] Mar, [facility] [id number] [place] [address] Mar, [facility] [id number] [place] [address] Mar, [facility] [id number] [place] [address] Feb, [facility] [id number] [place] [address] Feb, [facility] [id number] [place] [address] Jan, [facility] [id number] [place] [address] Sep, [facility] [id number] [place] [address] May, IMMUNIZATIONS No Known Immunizations SOCIAL HISTORY [...] History Left ear surgery Hospitalization History [facility] in [place]- Spontane ous Pneumothorax Hospitalization History [facility]- Colon resection Hospitalization History [facility] - diarrhea/ couldnt urin ate nov 2017 Hospitalization History pain /hip to foot right side 10/16/19 19
--- OUTSIDE RECORDS SUMMARY | 2019-08-28 08:54 | XMS REPORT ---
Author Author Dixon Lundberg Doctor Organization [facility] Address Unknown Phone Unavailable Care Team Providers Care Certified Personal Chef Name Role Phone Migration, Doctor Unavailable Unavailable PROBLEMS Type Condition ICD9-CM Code MSO52-HJ Code Onset Dates Condition S tatus SNOMED Code Problem Insomnia G47.00 Active 793843492 Problem Anxiety F41.9 Active 18708545 Problem HTN (hypertension) I10 Active 3 4526858 Problem Chronic pain G89.29 Active 2452237 1 Problem Constipation K59.00 Active 9375294 8 Problem Thoracic back pain, unspecif ied back pain laterality, unspecified chronicity M54.6 Active 925097046 Problem Hyperlipidemia E78.5 Active 81080 004 Problem Vitamin D deficiency E55.9 Active 11903422 Problem Chronic kidney disease, stage III (moderate) N18.3 Active 987000026 Problem Vision loss H54.7 Active 15783968 1 Problem Age-related cataract of both eyes, unspecified age-related cataract type H25.9 Active 35542131 Problem Primary insomnia F51.01 Active 397 2004 Problem Psychophysiologic insomnia F51.04 Act saúl 492453051 Problem Environmental allergies Z91.09 Active 246970920 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 [place] [address] 09 Jun, 2019 [address] [facility] [place] [address] 04 Jun, 2019 Anxiety F41.9 and Thoracic back pain, un specified back pain laterality, unspecified chronicity M54.6 [facility] [address] [address] Jun, [facility] [address] [address] May, [facility] [address] [address] May, Psychophysiologic insomnia F51.04 [facility] [address] [address] 13 May, 2019 Other constipation K59.09 [facility] [address] [address] 11 May, 2019 Thoracic back pain, unspecified back hao n laterality, unspecified chronicity M54.6 [address] [address] 06 May, 2019 Anxiety F41.9 and Thoracic back pain, un specified back pain laterality, unspecified chronicity M54.6 [address] [address] May, [facility] [address] [address] Apr, [facility] [address] [address] Apr, [facility] [address] [address] Apr, Psychophysiological insomnia F51.04 [facility] [address] [address] Apr, Thoracic back pain, unspecified back hao n laterality, unspecified chronicity M54.6 [facility] [address] [address] Apr, Thoracic back pain, unspecified back hao n laterality, unspecified chronicity M54.6 [facility] [address] [address] Apr, Anxiety F41.9 [address] [address] Apr, Psychophysiological insomnia F51.04 [address] [address] Mar, Encounter for Medicare annual wellness e [...] both eyes, unspecified age-related cataract type H25.9 [address] [address] Mar, Thoracic back pain, unspecified back hao n laterality, unspecified chronicity M54.6 [address] [place] [address] Mar, Psychophysiological insomnia F51.04 [address] [address] Mar, Thoracic back pain, unspecified back hao n laterality, unspecified chronicity M54.6 and Anxiety F41.9 [address] [place] [address] Mar, Psychophysiological insomnia F51.04 [address] [place] [address] Mar, [address] [place] [address] Mar, Psychophysiological insomnia F51.04 [address] [address] Mar, [address] [address] Feb, [facility] [address] [address] Feb, Thoracic back pain, unspecified back hao n laterality, unspecified chronicity M54.6 [facility] [address] [address] Feb, Anxiety F41.9 and Thoracic back pain, un specified back pain laterality, unspecified chronicity M54.6 [facility] [address] [address] Feb, Insomnia G47.00 ; HTN (hypertension) I10 and Constipation K59.00 [address] [place] [address] Feb, [facility] [address] [address] Jan, Thoracic back pain, unspecified back hao n laterality, unspecified chronicity M54.6 [address] [place] [address] Jan, Anxiety F41.9 [address] [place] [address] Jan, Anxiety F41.9 [address] [address] [address] Jan, Anxiety F41.9 and Thoracic back pain, un specified back pain laterality, unspecified chronicity M54.6 [facility] [address] [address] Jan, [facility] [address] [address] Jan, [facility] [address] [address] Dec, Thoracic back pain, unspecified back hao n laterality, unspecified chronicity M54.6 [address] [place] [address] Dec, Thoracic back pain, unspecified back hao n laterality, unspecified chronicity M54.6 [facility] [address] [address] Nov, Thoracic back pain, unspecified back hao n laterality, unspecified chronicity M54.6 [facility] [address] [address] Nov, Anxiety F41.9 and Thoracic back pain, un specified back pain laterality, unspecified chronicity M54.6 [facility] [address] [address] Nov, [facility] [address] [address] Nov, [facility] [address] [address] Nov, [facility] [address] [address] Oct, Thoracic back pain, unspecified back hao n laterality, unspecified chronicity M54.6 [facility] [address] [address] Oct, Anxiety F41.9 and Thoracic back pain, un specified back pain laterality, unspecified chronicity M54.6 [facility] [address] [address] Oct, Schizophrenia, unspecified type F20.9 an d Acute kidney injury N17.9 [facility] [address] [address] Oct, [facility] [address] [address] Oct, [facility] [address] [address] Oct, Thoracic back pain, unspecified back hao n laterality, unspecified chronicity M54.6 [facility] [address] [address] Oct, [facility] [address] [address] Oct, [facility] [address] [address] Sep, Anxiety F41.9 [facility] [address] [address] Sep, [facility] [address] [address] Sep, Thoracic back pain, unspecified back hao n laterality, unspecified chronicity M54.6 [facility] [address] [address] Sep, [facility] [address] [address] Sep, [facility] [address] [address] Sep, [facility] [address] [address] Sep, [facility] [address] [address] Sep, [facility] [address] [address] Sep, [facility] [address] [address] Sep, Chronic pain G89.29 ; Chronic kidney dis ease, stage III (moderate) N18.3 ; Hyperlipidemia E78.5 and Insomnia G47.00 [facility] [address] [address] Sep, Thoracic back pain, unspecified back hao n laterality, unspecified chronicity M54.6 [facility] [address] [address] August, Anxiety F41.9 [facility] [address] [address] August, Thoracic back pain, unspecified back hao n laterality, unspecified chronicity M54.6 and Anxiety F41.9 [facility] [address] [address] August, 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 [facility] [address] [address] August, 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6 [facility] [id number] [place] [address] Jul, [facility] [address] [address] Jul, Thoracic back pain, unspecified back hao n laterality, unspecified chronicity M54.6 [facility] [address] [address] Jun, Anxiety F41.9 and Thoracic back pain, un specified back pain laterality, unspecified chronicity M54.6 [facility] [id number] [place] [address] Jun, Anxiety F41.9 and Thoracic back pain, un specified back pain laterality, unspecified chronicity M54.6 [facility] [address] [address] 07 Jun, 2018 Thoracic back pain, unspecified back hao n laterality, unspecified chronicity M54.6 [address] [address] Jun, Anxiety F41.9 and Thoracic back pain, un specified back pain laterality, unspecified chronicity M54.6 [address] [address] May, [address] [place] [address] May, [address] [address] May, [address] [place] [address] 06 May, 2018 Anxiety F41.9 and Encounter for medicati on monitoring Z51.81 [address] [address] [address] 05 May, 2018 Anxiety F41.9 and Thoracic back pain, un specified back pain laterality, unspecified chronicity M54.6 [address] [address] Apr, Hyperlipidemia 272.4 [address] [address] Apr, Chronic pain G89.29 ; Anxiety F41.9 ; Ce rvical radiculopathy M54.12 and Vision loss H54.7 [address] [address] Apr, [address] [address] Apr, Anxiety F41.9 and Thoracic back pain, un specified back pain laterality, unspecified chronicity M54.6 [address] [address] Mar, [id number] [address] Mar, Anxiety F41.9 and Thoracic back pain, un specified back pain laterality, unspecified chronicity M54.6 [facility] [address] [address] 14 Feb, 2018 Anxiety F41.9 and Thoracic back pain, un specified back pain laterality, unspecified chronicity M54.6 [address] [address] 07 Feb, 2018 Thoracic back pain, unspecified back hao n laterality, unspecified chronicity M54.6 [address] [address] 29 Jan, 2018 [address] [address] Jan, Anxiety F41.9 and Thoracic back pain, un specified back pain laterality, unspecified chronicity M54.6 [address] [address] 19 Dec, 2017 Diarrhea of presumed infectious origin R 19.7 [address] [address] 19 Dec, 2017 Diarrhea of presumed infectious origin R 19.7 [address] [address] 18 Dec, 2017 Thoracic back pain, unspecified back hao n laterality, unspecified chronicity M54.6 [address] [address] 17 Dec, 2017 [address] [address] 17 Dec, 2017 Anxiety F41.9 and Thoracic back pain, un specified back pain laterality, unspecified chronicity M54.6 [address] [address] 13 Dec, 2017 Diarrhea of presumed infectious origin R 19.7 [address] [place] [address] 13 Dec, 2017 [address] [address] Dec, Anxiety F41.9 and Thoracic back pain, un specified back pain laterality, unspecified chronicity M54.6 [address] [address] Dec, Anxiety F41.9 and Thoracic back pain, un specified back pain laterality, unspecified chronicity M54.6 [facility] [address] [place] [id number] Dec, Diarrhea of presumed infectious origin R 19.7 ; Anxiety F41.9 ; Thoracic back pain, unspecified back pain laterality, unspecified chronicity M54.6 and HTN (hypertension) I10 [address] [address] Dec, Anxiety F41.9 [facility] [address] [place] [id number] Dec, Anxiety F41.9 ; Diarrhea of presumed inf ectious origin R19.7 ; Generalized abdominal pain R10.84 and Localized edema R60.0 [address] [address] Nov, [facility] [address] [place] [id number] Nov, Anxiety F41.9 ; Urinary retention R33.9 ; Diarrhea of presumed infectious origin R19.7 ; Weakness R53.1 ; Acute kidney failure, unspecified N17.9 ; Chronic kidney disease, stage III (moderate) N18.3 and Thoracic back pain, unspecified back pain laterality, unspecified chronicity M54.6 [address] [address] Oct, Thoracic back pain, unspecified back hao n laterality, unspecified chronicity M54.6 and Anxiety F41.9 [address] [address] Sep, Thoracic back pain, unspecified back hao n laterality, unspecified chronicity M54.6 and Anxiety F41.9 [address] [address] Sep, Thoracic back pain, unspecified back hao n laterality, unspecified chronicity M54.6 ; Anxiety F41.9 and Encounter for medication monitoring Z51.81 [address] [address] August, [address] [address] August, Thoracic back pain, unspecified back hao n laterality, unspecified chronicity M54.6 and Anxiety F41.9 [address] [address] August, Hyperlipidemia E78.5 and HTN (hypertensi on) I10 [address] [address] August, [address] [address] August, Medicare welcome exam Z00.00 ; Chronic k idney failure N18.9 ; Anxiety F41.9 ; Chronic pain G89.29 ; Insomnia G47.00 ; Hyperlipidemia E78.5 ; HTN (hypertension) I10 and Thoracic back pain, unspecified back pain laterality, unspecified chronicity M54.6 [address] [address] Jul, [address] [place] [address] Jul, [address] [address] Jul, [address] [address] Jul, Anxiety F41.9 [address] [address] Jul, Thoracic back pain, unspecified back hao n laterality, unspecified chronicity M54.6 and Anxiety F41.9 [address] [address] Jun, Thoracic back pain, unspecified back hao n laterality, unspecified chronicity M54.6 and Anxiety F41.9 [address] [address] May, Thoracic back pain, unspecified back hao n laterality, unspecified chronicity M54.6 and Anxiety F41.9 [address] [address] Apr, Thoracic back pain, unspecified back hao n laterality, unspecified chronicity M54.6 and Anxiety F41.[address] [address] Mar, [address] [address] Mar, Thoracic back pain, unspecified back hao n laterality, unspecified chronicity M54.6 and Anxiety F41.[address] [address] Mar, Thoracic back pain, unspecified back hao n laterality, unspecified chronicity M54.6 ; HTN (hypertension) I10 ; Hyperlipidemia E78.5 and Anxiety F41.[address] [address] Feb, Thoracic back pain, unspecified back hao n laterality, unspecified chronicity M54.6 and Anxiety F41.[address] [address] Nov, [address] [address] Oct, [address] [address] Oct, Thoracic back pain, unspecified back hao n laterality, unspecified chronicity M54.6 [facility] [address] [address] Oct, HTN (hypertension) I10 ; Constipation K5 9.00 ; Hyperlipidemia E78.5 ; Thoracic back pain, unspecified back pain laterality, unspecified chronicity M54.6 ; Chronic pain G89.29 ; Anxiety F41.9 ; Chronic kidney failure N18.9 ; Environmental allergies Z91.09 ; Vitamin D deficiency E55.9 and Primary insomnia F51.01 [address] [address] Sep, Anxiety F41.9 [address] [address] Sep, [address] [address] August, Anxiety F41.9 [address] [address] August, [address] [address] Jul, Anxiety F41.9 [address] [address] Jul, [address] [address] Jun, Anxiety F41.9 [address] [address] [address] Jun, [address] [address] May, [address] [address] May, [address] [address] May, [address] [address] [address] Apr, [facility] [id number] [place] [address] Apr, [facility] [address] [address] Apr, Anxiety F41.9 [facility] [address] [address] Apr, Anxiety F41.9 [facility] [address] [address] Apr, [facility] [address] [address] Mar, HTN (hypertension) I10 ; Tremor R25.1 ; Hypercholesterolemia E78.0 ; Constipation K59.00 ; Chronic pain G89.29 ; Hyperlipidemia E78.5 ; Insomnia G47.00 ; Anxiety F41.9 and Thoracic back pain, unspecified back pain laterality, unspecified chronicity M54.6 [facility] [address] [address] Mar, Tremor R25.1 ; HTN (hypertension) I10 ; Hypercholesterolemia E78.0 ; Constipation K59.00 ; Chronic pain G89.29 ; Hyperlipidemia E78.5 ; Insomnia G47.00 ; Anxiety F41.9 and Thoracic back pain, unspecified back pain laterality, unspecified chronicity M54.6 [facility] [address] [address] Mar, [facility] [address] [address] Mar, [facility] [address] [address] Feb, [facility] [address] [address] Jan, [facility] [address] [address] Jan, [facility] [address] [address] Dec, [facility] [address] [address] Nov, [facility] [address] [address] Nov, [facility] [address] [address] Oct, Anxiety F41.9 [facility] [address] [address] Oct, Chronic pain G89.29 [facility] [address] [address] Sep, [facility] [address] [address] Sep, [facility] [address] [address] Sep, [facility] [address] [address] Sep, [facility] [address] [address] Sep, Chronic pain syndrome G89.4 [facility] [address] [address] Sep, HTN (hypertension) I10 ; Chronic pain G8 9.29 ; Hypercholesterolemia E78.0 ; Chronic kidney failure N18.9 ; Constipation, unspecified constipation type K59.00 ; Anxiety F41.9 and Thoracic back pain, unspecified back pain laterality, unspecified chronicity M54.6 [facility] [address] [address] August, Chronic pain syndrome G89.4 [facility] [address] [address] August, Chronic pain syndrome G89.4 [facility] [address] [address] Jul, Anxiety disorder, unspecified F41.9 and Chronic pain syndrome G89.4 [facility] [address] [address] Jul, Insomnia, unspecified G47.00 and Chronic pain syndrome G89.4 [facility] [address] [address] Jul, Allergic rhinitis J30.9 [facility] [address] [address] Jul, Constipation, unspecified K59.00 [facility] [address] [address] Jul, [facility] [address] [address] Jun, [facility] [address] [address] Jun, [facility] [address] [address] Jun, [facility] [address] [address] Jun, [facility] [address] [address] Jun, [facility] [address] [address] Jun, [facility] [address] [address] May, [facility] [address] [address] May, [facility] [address] [address] May, Anxiety F41.9 ; Insomnia G47.00 ; Hyperl ipidemia E78.5 ; Chronic pain G89.29 ; HTN (hypertension) I10 ; Environmental allergies V15.09 and Constipation 564.00 [facility] [address] [address] Apr, [facility] [id number] [place] [address] Apr, [facility] [address] [address] Apr, [facility] [address] [address] Mar, [facility] [address] [address] Mar, [facility] [address] [address] Mar, [facility] [address] [address] Feb, [facility] [address] [address] Feb, [facility] [address] [address] Feb, [facility] [address] [address] Jan, HTN (hypertension) I10 ; Constipation K5 9.00 ; Chronic pain G89.29 ; Hyperlipidemia E78.5 ; Hypercholesterolemia E78.0 ; Insomnia G47.00 and Anxiety F41.9 [facility] [address] [address] Jan, [facility] [address] [address] Dec, [facility] [facility] [address] [address] Nov, [facility] [address] [address] Oct, Chronic kidney disease, unspecified 585. 9 ; Chronic pain syndrome 338.4 ; Hyperlipidemia 272.4 and Essential hypertension 401.9 [facility] [address] [address] Oct, Chronic kidney disease 585.9 [facility] [id number] [place] [address] Oct, [facility] [address] [address] Oct, Chronic kidney disease, unspecified 585. 9 ; Hypercalcemia 275.42 ; Hyperlipidemia 272.4 ; Essential hypertension 401.9 ; Chronic pain syndrome 338.4 ; Insomnia 780.52 ; Constipation 564.00 ; Environmental allergies V15.09 and Anxiety 300.00 [facility] [id number] [place] [address] Oct, Chronic kidney disease 585.9 [facility] [address] [address] Oct, [facility] [address] [address] Oct, Chronic kidney disease 585.9 and Hyperli pidemia 272.4 [facility] [id number] [place] [address] Oct, [facility] [address] [address] Oct, [facility] [address] [address] Sep, [facility] [address] [address] Sep, [facility] [address] [address] Sep, Chronic kidney disease 585.9 and Hyperli pidemia 272.4 [facility] [id number] [place] [address] Sep, [facility] [id number] [place] [address] August, [facility] [address] [address] August[facility] [address] [id number] [place] [address] 14 Jul, 2014 [facility] [address] [id number] [place] [address] 13 Jul, 2014 [facility] [address] [id number] [place] [address] Jun, [facility] [address] [id number] [place] [address] Jun, [facility] [address] [id number] [place] [address] Jun, [facility] [address] [id number] [place] [address] Jun, [facility] [address] [id number] [place] [address] Jun, [facility] [address] [id number] [place] [address] Jun, [facility] [address] [id number] [place] [address] Jun, [facility] [address] [id number] [place] [address] Jun, [facility] [address] [id number] [place] [address] 16 May, 2014 [facility] [address] [id number] [place] [address] 16 May, 2014 [facility] [address] [id number] [place] [address] May, 2014 [facility] [address] [id number] [place] [address] May, [facility] [address] [id number] [place] [address] Apr, [facility] [address] [id number] [place] [address] Apr, [facility] [address] [id number] [place] [address] Apr, [facility] [address] [facility] [id number] [place] [address] Apr, [facility] [address] [id number] [place] [address] Apr, [facility] [address] [id number] [place] [address] Apr, [facility] [address] [id number] [place] [address] Apr, [facility] [address] [id number] [place] [address] Apr, [facility] [address] [id number] [place] [address] Apr, [facility] [address] [id number] [place] [address] Apr, [facility] [address] [id number] [place] [address] Apr, [facility] [address] [id number] [place] [address] Mar, [facility] [address] [id number] [place] [address] Mar, [facility] [address] [id number] [place] [address] Feb, [facility] [address] [id number] [place] [address] Feb, [facility] [address] [id number] [place] [address] Feb, [facility] [address] [id number] [place] [address] Feb, [facility] [address] [id number] [place] [address] Feb, [facility] [address] [id number] [place] [address] Feb, [facility] [address] [id number] [place] [address] Feb, [facility] [address] [id number] [place] [address] Feb, [facility] [address] [id number] [place] [address] Feb, [facility] [address] [id number] [place] [address] Feb, [facility] [address] [id number] [place] [address] Jan, [facility] [address] [id number] [place] [address] Jan, [facility] [address] [id number] [place] [address] Jan, [facility] [address] [id number] [place] [address] Jan, [facility] [address] [id number] [place] [address] Jan, [facility] [address] [id number] [place] [address] Jan, [facility] [address] [id number] [place] [address] Jan, [facility] [address] [id number] [place] [address] Jan, [facility] [address] [id number] [place] [address] Jan, [facility] [address] [id number] [place] [address] Jan, [facility] [address] [id number] [place] [address] Jan, [facility] [address] [id number] [place] [address] Dec, [facility] [address] [id number] [place] [address] Dec, [facility] [address] [id number] [place] [address] Dec, 2013 [facility] [address] [facility] [id number] [place] [address] Dec, 2013 [facility] [address] [id number] [place] [address] Dec, 2013 [facility] [address] [id number] [place] [address] Dec, 2013 [facility] [address] [facility] [id number] [place] [address] Dec, 2013 [facility] [address] [id number] [place] [address] Dec, 2013 [facility] [address] [id number] [place] [address] Nov, [facility] [address] [id number] [place] [address] Nov, [facility] [address] [id number] [place] [address] Nov, [facility] [address] [id number] [place] [address] Nov, [facility] [address] [id number] [place] [address] Nov, [facility] [address] [id number] [place] [address] Nov, [facility] [address] [id number] [place] [address] Nov, [facility] [address] [id number] [place] [address] Nov, [facility] [address] [id number] [place] [address] Oct, [facility] [address] [id number] [place] [address] Oct, [facility] [address] [id number] [place] [address] Oct, [facility] [address] [facility] [id number] [place] [address] Oct, [facility] [address] [facility] [id number] [place] [address] Sep, [facility] [address] [id number] [place] [address] Sep, [facility] [address] [id number] [place] [address] Sep, [facility] [address] [facility] [id number] [place] [address] Sep, [facility] [address] [id number] [place] [address] Sep, [facility] [address] [id number] [place] [address] Sep, [facility] [address] [id number] [place] [address] Sep, [facility] [address] [id number] [place] [address] Sep, [facility] [address] [id number] [place] [address] August, [facility] [address] [id number] [place] [address] August, [facility] [address] [id number] [place] [address] August, [facility] [address] [id number] [place] [address] August, [facility] [address] [id number] [place] [address] August, [facility] [address] [id number] [place] [address] August, [facility] [address] [id number] [place] [address] August, [facility] [address] [id number] [place] [address] August, [facility] [address] [facility] [id number] [place] [address] August, [facility] [address] [id number] [place] [address] August, [facility] [address] [id number] [place] [address] Jul, [facility] [address] [id number] [place] [address] Jul, [facility] [address] [id number] [place] [address] Jul, [facility] [address] [id number] [place] [address] Jul, [facility] [address] [id number] [place] [address] Jul, [facility] [address] [id number] [place] [address] Jul, [facility] [address] [id number] [place] [address] Jul, [facility] [address] [id number] [place] [address] Jul, [facility] [address] [id number] [place] [address] Jun, [facility] [address] [id number] [place] [address] Jun, [facility] [address] [id number] [place] [address] Jun, [facility] [address] [id number] [place] [address] Jun, [facility] [address] [id number] [place] [address] Jun, [facility] [address] [id number] [place] [address] Jun, [facility] [address] [facility] [id number] [place] [address] May, [facility] [address] [facility] [id number] [place] [address] May, [facility] [address] [facility] [id number] [place] [address] May, [facility] [address] [id number] [place] [address] May, [facility] [address] [facility] [id number] [place] [address] May, [facility] [address] [id number] [place] [address] May, [facility] [address] [id number] [place] [address] May, [facility] [address] [id number] [place] [address] Apr, [facility] [address] [id number] [place] [address] Apr, [facility] [address] [id number] [place] [address] Apr, [facility] [address] [id number] [place] [address] Apr, [facility] [address] [id number] [place] [address] Apr, [facility] [address] [id number] [place] [address] Apr, [facility] [address] [id number] [place] [address] Mar, [facility] [address] [facility] [id number] [place] [address] Mar, [facility] [address] [id number] [place] [address] Mar, [facility] [address] [id number] [place] [address] Mar, [facility] [address] [id number] [place] [address] Mar, [facility] [address] [id number] [place] [address] Mar, [facility] [address] [id number] [place] [address] Mar, [facility] [address] [id number] [place] [address] Mar, [facility] [address] [id number] [place] [address] Mar, [facility] [address] [id number] [place] [address] Mar, [facility] [address] [id number] [place] [address] Feb, [facility] [address] [id number] [place] [address] Feb, [facility] [address] [id number] [place] [address] Feb, [facility] [address] [id number] [place] [address] Feb, [facility] [address] [id number] [place] [address] 14 Feb, 2013 [facility] [address] [id number] [place] [address] 14 Feb, 2013 [facility] [address] [id number] [place] [address] Feb, [facility] [address] [id number] [place] [address] 11 Feb, 2013 [facility] [address] [id number] [place] [address] 08 Feb, 2013 [facility] [address] [id number] [place] [address] 08 Feb, 2013 [facility] [address] [facility] [id number] [place] [address] Jan, [facility] [address] [facility] [id number] [place] [address] Jan, [facility] [address] [id number] [place] [address] Jan, [facility] [address] [id number] [place] [address] Jan, [facility] [address] [facility] [id number] [place] [address] Jan, [facility] [address] [facility] [id number] [place] [address] Jan, [facility] [address] [id number] [place] [address] Jan, [facility] [address] [id number] [place] [address] Jan, [facility] [address] [id number] [place] [address] Jan, [facility] [address] [id number] [place] [address] 25 Dec, 2012 [facility] [address] [id number] [place] [address] Dec, [facility] [address] [id number] [place] [address] Dec, [facility] [address] [id number] [place] [address] 13 Dec, 2012 [facility] [address] [facility] [id number] [place] [address] Nov, [facility] [address] [id number] [place] [address] Nov, [facility] [address] [id number] [place] [address] Nov, [facility] [address] [id number] [place] [address] Nov, [facility] [address] [id number] [place] [address] Nov, [facility] [place] [facility] [address] [facility] [id number] [place] [address] Nov, [facility] [place] [facility] [address] [facility] [id number] [place] [address] Oct, [facility] [place] [facility] [address] [id number] [place] [address] Oct, [facility] [place] [facility] [address] [facility] [id number] [place] [address] Oct, [facility] [place] [facility] [address] [id number] [place] [address] Oct, [facility] [place] [facility] [address] [id number] [place] [address] Sep, [facility] [place] [facility] [address] [id number] [place] [address] Sep, [facility] [place] [facility] [address] [facility] [id number] [place] [address] Sep, [facility] [place] [facility] [address] [id number] [place] [address] Sep, [facility] [place] [facility] [address] [id number] [place] [address] Sep, [facility] [place] [facility] [address] [id number] [place] [address] August, [facility] [place] [facility] [address] [facility] [id number] [place] [address] August, [facility] [place] [facility] [address] [id number] [place] [address] Jul, [facility] [place] [facility] [address] [facility] [id number] [place] [address] Jul, [facility] [place] [facility] [address] [id number] [place] [address] 15 Jul, 2012 [facility] [place] [facility] [address] [id number] [place] [address] 09 Jul, 2012 [facility] [address] [id number] [place] [address] Jul, [facility] [place] [facility] [address] [id number] [place] [address] 26 Jun, 2012 [facility] [place] [facility] [address] [id number] [place] [address] Jun, [facility] [place] [facility] [address] [id number] [place] [address] 15 Jun, 2012 [facility] [place] [facility] [address] [id number] [place] [address] Jun, [facility] [place] [facility] [address] [id number] [place] [address] Jun, [facility] [place] [facility] [address] [id number] [place] [address] May, [facility] [place] [facility] [address] [id number] [place] [address] May, [facility] [place] [facility] [address] [id number] [place] [address] May, [facility] [place] [facility] [address] [id number] [place] [address] May, [facility] [place] [facility] [address] [id number] [place] [address] 20 May, 2012 [facility] [place] [facility] [address] [id number] [place] [address] 14 May, 2012 [facility] [place] [facility] [address] [id number] [place] [address] 13 May, 2012 [facility] [place] [facility] [address] [id number] [place] [address] 08 May, 2012 [facility] [place] [facility] [address] [id number] [place] [address] 04 May, 2012 [facility] [place] [facility] [address] [id number] [place] [address] Apr, [facility] [address] [facility] [id number] [place] [address] Apr, [facility] [place] [facility] [address] [id number] [place] [address] Apr, [facility] [place] [facility] [address] [id number] [place] [address] Apr, [facility] [place] [facility] [address] [id number] [place] [address] Apr, [facility] [place] [facility] [address] [id number] [place] [address] Mar, [facility] [place] [facility] [address] [id number] [place] [address] Mar, [facility] [place] [facility] [address] [id number] [place] [address] Mar, [facility] [place] [facility] [address] [id number] [place] [address] Mar, [facility] [place] [facility] [address] [id number] [place] [address] Mar, [facility] [place] [facility] [address] [id number] [place] [address] Mar, [facility] [place] [facility] [address] [id number] [place] [address] Mar, [facility] [place] [facility] [address] [id number] [place] [address] Mar, [facility] [place] [facility] [address] [id number] [place] [address] Mar, [facility] [place] [facility] [address] [id number] [place] [address] Mar, [facility] [place] [facility] [address] [id number] [place] [address] Feb, [facility] [place] [facility] [address] [id number] [place] [address] Feb, [facility] [place] [facility] [address] [id number] [place] [address] Feb, [facility] [place] [facility] [address] [id number] [place] [address] Feb, [facility] [place] [facility] [address] [id number] [place] [address] Feb, [facility] [place] [facility] [address] [facility] [id number] [place] [address] Feb, [facility] [address] [id number] [place] [address] Feb, [facility] [address] [id number] [place] [address] Feb, [facility] [address] [id number] [place] [address] Feb, [facility] [address] [id number] [place] [address] Feb, [facility] [address] [id number] [place] [address] Feb, [facility] [address] [id number] [place] [address] Feb, [facility] [address] [id number] [place] [address] Feb, [facility] [address] [id number] [place] [address] Feb, [facility] [address] [id number] [place] [address] Feb, [facility] [address] [id number] [place] [address] Feb, [facility] [id number] [place] [address] Feb, [facility] [address] [id number] [place] [address] Feb, [facility] [address] [id number] [place] [address] Jan, [facility] [address] [id number] [place] [address] Jan, [facility] [address] [id number] [place] [address] Jan, [facility] [address] [id number] [place] [address] Jan, [facility] [address] [id number] [place] [address] Jan, [facility] [address] [id number] [place] [address] Jan, [facility] [address] [id number] [place] [address] Jan, [facility] [address] [id number] [place] [address] Jan, [facility] [address] [id number] [place] [address] Jan, [facility] [address] [id number] [place] [address] Jan, [facility] [address] [id number] [place] [address] 24 Dec, 2011 [facility] [address] [id number] [place] [address] 18 Dec, 2011 [facility] [address] [id number] [place] [address] Dec, [facility] [address] [id number] [place] [address] 04 Dec, 2011 [facility] [address] [id number] [place] [address] Nov, [facility] [address] [id number] [place] [address] Nov, [facility] [address] [id number] [place] [address] Nov, [facility] [address] [id number] [place] [address] Nov, [facility] [address] [facility] [id number] [place] [address] Nov, [facility] [address] [facility] [id number] [place] [address] Nov, [facility] [address] [id number] [place] [address] Oct, [facility] [address] [id number] [place] [address] Oct, [facility] [address] [facility] [id number] [place] [address] Oct, [facility] [address] [id number] [place] [address] Oct, [facility] [address] [id number] [place] [address] Oct, [facility] [address] [id number] [place] [address] Sep, [facility] [address] [id number] [place] [address] Sep, [facility] [address] [id number] [place] [address] Sep, [facility] [address] [id number] [place] [address] Sep, [facility] [address] [id number] [place] [address] Sep, [facility] [address] [id number] [place] [address] August, [facility] [address] [id number] [place] [address] August, [facility] [address] [id number] [place] [address] August, [facility] [address] [id number] [place] [address] August, [facility] [address] [id number] [place] [address] 27 Jul, 2011 [facility] [address] [id number] [place] [address] 24 Jul, 2011 [facility] [address] [id number] [place] [address] 19 Jul, 2011 [facility] [address] [id number] [place] [address] Jul, [facility] [address] [id number] [place] [address] 18 Jul, 2011 [facility] [address] [id number] [place] [address] Jul, [facility] [address] [id number] [place] [address] 11 Jul, 2011 [facility] [address] [id number] [place] [address] 10 Jul, 2011 [facility] [address] [id number] [place] [address] 09 Jul, 2011 [facility] [address] [id number] [place] [address] 07 Jul, 2011 [facility] [address] [id number] [place] [address] 05 Jul, 2011 [facility] [address] [id number] [place] [address] 03 Jul, 2011 [facility] [address] [id number] [place] [address] Jul, [facility] [address] [id number] [place] [address] Jul, [facility] [address] [id number] [place] [address] 28 Jun, 2011 [facility] [address] [id number] [place] [address] 27 Jun, 2011 [facility] [address] [id number] [place] [address] 20 Jun, 2011 [facility] [address] [id number] [place] [address] Jun, [facility] [address] [id number] [place] [address] May, [facility] [address] [id number] [place] [address] May, [facility] [address] [id number] [place] [address] May, [facility] [address] [id number] [place] [address] Apr, [facility] [address] [id number] [place] [address] Apr, [facility] [address] [id number] [place] [address] Apr, [facility] [id number] [place] [address] Apr, [facility] [address] [id number] [place] [address] Apr, [facility] [address] [id number] [place] [address] Mar, [facility] [address] [id number] [place] [address] Mar, [facility] [address] [id number] [place] [address] Mar, [facility] [address] [id number] [place] [address] Mar, [facility] [address] [id number] [place] [address] Mar, [facility] [address] [id number] [place] [address] Mar, [facility] [address] [id number] [place] [address] Mar, [facility] [address] [id number] [place] [address] 29 Feb, 2011 [facility] [address] [id number] [place] [address] Feb, [facility] [address] [id number] [place] [address] Feb, [facility] [address] [id number] [place] [address] Feb, [facility] [address] [id number] [place] [address] 16 Feb, 2011 [facility] [address] [id number] [place] [address] 14 Feb, 2011 [facility] [address] [id number] [place] [address] 10 Feb, 2011 [facility] [address] [id number] [place] [address] 31 Jan, 2011 [facility] [address] [id number] [place] [address] 31 Jan, 2011 [facility] [address] [id number] [place] [address] 31 Jan, 2011 [facility] [address] [id number] [place] [address] 18 Jan, 2011 [facility] [address] [id number] [place] [address] 17 Jan, 2011 [facility] [address] [id number] [place] [address] 17 Jan, 2011 [facility] [address] [id number] [place] [address] 17 Jun, 2010 [facility] [address] [id number] [place] [address] 30 Mar, 2010 [facility] [address] [id number] [place] [address] 20 Mar, 2010 [facility] [address] [id number] [place] [address] 14 Mar, 2010 [facility] [address] [id number] [place] [address] 14 Mar, 2010 [facility] [address] [id number] [place] [address] 13 Mar, 2010 [facility] [address] [id number] [place] [address] 07 Mar, 2010 [facility] [address] [id number] [place] [address] 02 Mar, 2010 [facility] [address] [id number] [place] [address] Mar, [facility] [address] [id number] [place] [address] 30 Feb, 2010 [facility] [address] [id number] [place] [address] 29 Feb, 2010 [facility] [address] [id number] [place] [address] 17 Feb, 2010 [facility] [address] [id number] [place] [address] 17 Feb, 2010 [facility] [address] [id number] [place] [address] 16 Feb, 2010 [facility] [address] [id number] [place] [address] 08 Feb, 2010 [facility] [address] [id number] [place] [address] Feb, [facility] [address] [id number] [place] [address] Feb, [facility] [address] [id number] [place] [address] 28 Jan, 2010 [facility] [id number] [place] [address] Jan, [facility] [address] [id number] [place] [address] Jan, [facility] [address] [id number] [place] [address] Jan, [facility] [address] [id number] [place] [address] Mar, [facility] [address] [id number] [place] [address] Mar, [facility] [address] [id number] [place] [address] Mar, [facility] [id number] [place] [address] Mar, [facility] [id number] [place] [address] Mar, [facility] [id number] [place] [address] Mar, [facility] [id number] [place] [address] Feb, [facility] [id number] [place] [address] Feb, [facility] [address] [id number] [place] [address] Jan, [facility] [id number] [place] [address] Sep, [facility] [address] [id number] [place] [address] May, IMMUNIZATIONS No Known Immunizations SOCIAL HISTORY [...] Surgical History Left ear surgery Hospitalization History [facility] in [place]- Spontane ous Pneumothorax Hospitalization History [facility]- Colon resection Hospitalization History [facility] - diarrhea/ couldnt urin ate nov 2017 Hospitalization History pain /hip to foot right side 10/16/19 19
--- OUTSIDE RECORDS SUMMARY | 2019-08-28 08:55 | XMS REPORT ---
Author Author Dixon Lundberg Doctor Organization [facility] Address Unknown Phone Unavailable Care Team Providers [employer] Name Role Phone Migration, Doctor Unavailable Unavailable PROBLEMS Type Condition ICD9-CM Code ZKW91-FT Code Onset Dates Condition S tatus SNOMED Code Problem Insomnia G47.00 Active 731625293 Problem Anxiety F41.9 Active 54008999 Problem HTN (hypertension) I10 Active 3 1709679 Problem Chronic pain G89.29 Active 5468507 1 Problem Constipation K59.00 Active 1973932 8 Problem Thoracic back pain, unspecif ied back pain laterality, unspecified chronicity M54.6 Active 720055915 Problem Hyperlipidemia E78.5 Active 78541 004 Problem Vitamin D deficiency E55.9 Active 13918774 Problem Chronic kidney disease, stage III (moderate) N18.3 Active 216740254 Problem Vision loss H54.7 Active 86922412 1 Problem Age-related cataract of both eyes, unspecified age-related cataract type H25.9 Active 73584064 Problem Primary insomnia F51.01 Active 397 2004 Problem Psychophysiologic insomnia F51.04 Act saúl 107410874 Problem Environmental allergies Z91.09 Active 485895864 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 35923302 Problem Schizophrenia, unspecified type F20.9 Active 01378429 Problem Psychophysiological insomnia F51.04 A ctive 528040138 Problem Psychophysiological insomnia F51.04 A ctive [id number] ALLERGIES No Information ENCOUNTERS Encounter Location Date Diagnosis [facility] [id number] [place] [address] May, [facility] [address] [address] May, Psychophysiologic insomnia F51.04 [place] [place] [address] [address] May, Other constipation K59.09 [place] [address] [address] 11 May, 2019 Thoracic back pain, unspecified back hao n laterality, unspecified chronicity M54.6 [place] [address] [address] 06 May, 2019 Anxiety F41.9 and Thoracic back pain, un specified back pain laterality, unspecified chronicity M54.6 [place] [address] [address] 06 May, 2019 [place] [address] [address] Apr, [place] [address] [address] Apr, [place] [address] [address] Apr, Psychophysiological insomnia F51.04 [place] [address] [address] Apr, Thoracic back pain, unspecified back hao n laterality, unspecified chronicity M54.6 [place] [address] [address] 10 Apr, 2019 Thoracic back pain, unspecified back hao n laterality, unspecified chronicity M54.6 [place] [address] [address] Apr, Anxiety F41.9 [place] [address] [address] Apr, Psychophysiological insomnia F51.04 [place] [address] [address] Mar, Encounter for Medicare annual wellness e [...] both eyes, unspecified age-related cataract type H25.9 [place] [address] [address] Mar, Thoracic back pain, unspecified back hao n laterality, unspecified chronicity M54.6 [place] [address] [address] Mar, Psychophysiological insomnia F51.04 [place] [address] [address] Mar, Thoracic back pain, unspecified back hao n laterality, unspecified chronicity M54.6 and Anxiety F41.9 [place] [address] [address] Mar, Psychophysiological insomnia F51.04 [place] [address] [address] Mar, [place] [address] [address] Mar, Psychophysiological insomnia F51.04 [place] [address] [address] Mar, [place] [address] [address] Feb, [place] [address] [address] Feb, Thoracic back pain, unspecified back hao n laterality, unspecified chronicity M54.6 [place] [address] [address] 14 Feb, 2019 Anxiety F41.9 and Thoracic back pain, un specified back pain laterality, unspecified chronicity M54.6 [place] [address] [address] 07 Feb, 2019 Insomnia G47.00 ; HTN (hypertension) I10 and Constipation K59.00 [facility] [address] [address] Feb, [facility] [address] [address] Jan, Thoracic back pain, unspecified back hao n laterality, unspecified chronicity M54.6 [place] [address] [address] Jan, Anxiety F41.9 [place] [address] [address] Jan, Anxiety F41.9 [place] [address] [address] Jan, Anxiety F41.9 and Thoracic back pain, un specified back pain laterality, unspecified chronicity M54.6 [place] [address] [address] Jan, [place] [address] [address] Jan, [facility] [address] [address] Dec, Thoracic back pain, unspecified back hao n laterality, unspecified chronicity M54.6 [place] [address] [address] Dec, Thoracic back pain, unspecified back hao n laterality, unspecified chronicity M54.6 [place] [address] [address] Nov, Thoracic back pain, unspecified back hao n laterality, unspecified chronicity M54.6 [place] [address] [address] Nov, Anxiety F41.9 and Thoracic back pain, un specified back pain laterality, unspecified chronicity M54.6 [place] [address] [address] Nov, [facility] [id number] [place] [address] Nov, [facility] [address] [address] Nov, [facility] [id number] [place] [address] Oct, Thoracic back pain, unspecified back hao n laterality, unspecified chronicity M54.6 [facility] [address] [address] Oct, Anxiety F41.9 and Thoracic back pain, un specified back pain laterality, unspecified chronicity M54.6 [facility] [address] [address] Oct, Schizophrenia, unspecified type F20.9 an d Acute kidney injury N17.9 [facility] [address] [address] Oct, [facility] [address] [address] Oct, [facility] [address] [address] Oct, Thoracic back pain, unspecified back hao n laterality, unspecified chronicity M54.6 [facility] [address] [address] Oct, [facility] [address] [address] Oct, [facility] [address] [address] Sep, Anxiety F41.9 [facility] [address] [address] Sep, [facility] [address] [address] Sep, Thoracic back pain, unspecified back hao n laterality, unspecified chronicity M54.6 [facility] [address] [address] Sep, [facility] [address] [address] Sep, [facility] [address] [address] Sep, [facility] [address] [address] Sep, [facility] [address] [address] Sep, [facility] [address] [address] Sep, [facility] [address] [address] Sep, Chronic pain G89.29 ; Chronic kidney dis ease, stage III (moderate) N18.3 ; Hyperlipidemia E78.5 and Insomnia G47.00 [facility] [address] [address] Sep, Thoracic back pain, unspecified back hao n laterality, unspecified chronicity M54.6 [place] [address] [address] August, Anxiety F41.9 [place] [address] [address] August, Thoracic back pain, unspecified back hao n laterality, unspecified chronicity M54.6 and Anxiety F41.9 [facility] [address] [address] August, 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 [facility] [address] [address] August, 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 [facility] [address] [address] August, [facility] [address] [address] August, [facility] [id number] [place] [address] August, Thoracic back pain, unspecified back hao n laterality, unspecified chronicity M54.6 [facility] [id number] [place] [address] August, [facility] [address] [address] August, Anxiety F41.9 and Thoracic back pain, un specified back pain laterality, unspecified chronicity M54.6 [facility] [address] [address] Jul, [facility] [address] [address] Jul, Thoracic back pain, unspecified back hao n laterality, unspecified chronicity M54.6 [facility] [address] [address] Jun, Anxiety F41.9 and Thoracic back pain, un specified back pain laterality, unspecified chronicity M54.6 [facility] [address] [address] Jun, Anxiety F41.9 and Thoracic back pain, un specified back pain laterality, unspecified chronicity M54.6 [facility] [address] [address] Jun, Thoracic back pain, unspecified back hao n laterality, unspecified chronicity M54.6 [facility] [id number] [place] [address] Jun, Anxiety F41.9 and Thoracic back pain, un specified back pain laterality, unspecified chronicity M54.6 [facility] [address] [address] May, [facility] [address] [address] May, [facility] [address] [address] 08 May, 2018 [address] [place] [address] 06 May, 2018 Anxiety F41.9 and Encounter for medicati on monitoring Z51.81 [address] [place] [address] [address] 05 May, 2018 Anxiety F41.9 and Thoracic back pain, un specified back pain laterality, unspecified chronicity M54.6 [address] [place] [address] [address] Apr, Hyperlipidemia 272.4 [address] [place] [address] [address] Apr, Chronic pain G89.29 ; Anxiety F41.9 ; Ce rvical radiculopathy M54.12 and Vision loss H54.7 [address] [place] [address] [address] Apr, [place] [place] [address] [address] Apr, Anxiety F41.9 and Thoracic back pain, un specified back pain laterality, unspecified chronicity M54.6 [address] [place] [address] [address] 17 Mar, 2018 [address] [place] [address] [address] Mar, Anxiety F41.9 and Thoracic back pain, un specified back pain laterality, unspecified chronicity M54.6 [address] [place] [address] [address] 14 Feb, 2018 Anxiety F41.9 and Thoracic back pain, un specified back pain laterality, unspecified chronicity M54.6 [address] [place] [address] [address] 07 Feb, 2018 Thoracic back pain, unspecified back hao n laterality, unspecified chronicity M54.6 [address] [place] [address] Jan, [address] [place] [address] Jan, Anxiety F41.9 and Thoracic back pain, un specified back pain laterality, unspecified chronicity M54.6 [address] [place] [address] [address] Dec, Diarrhea of presumed infectious origin R 19.7 [address] [place] [address] Dec, Diarrhea of presumed infectious origin R 19.7 [address] [place] [address] 18 Dec, 2017 Thoracic back pain, unspecified back hao n laterality, unspecified chronicity M54.6 [address] [place] [address] Dec, [address] [place] [address] [address] Dec, Anxiety F41.9 and Thoracic back pain, un specified back pain laterality, unspecified chronicity M54.6 [address] [place] [address] Dec, Diarrhea of presumed infectious origin R 19.7 [address] [place] [address] Dec, [address] [address] Dec, Anxiety F41.9 and Thoracic back pain, un specified back pain laterality, unspecified chronicity M54.6 [address] [address] Dec, Anxiety F41.9 and Thoracic back pain, un specified back pain laterality, unspecified chronicity M54.6 [facility] [address] [place] [id number] Dec, Diarrhea of presumed infectious origin R 19.7 ; Anxiety F41.9 ; Thoracic back pain, unspecified back pain laterality, unspecified chronicity M54.6 and HTN (hypertension) I10 [address] [address] Dec, Anxiety F41.9 [facility] [address] [place] [id number] Dec, Anxiety F41.9 ; Diarrhea of presumed inf ectious origin R19.7 ; Generalized abdominal pain R10.84 and Localized edema R60.0 [address] [address] Nov, [facility] [address] [place] [id number] Nov, Anxiety F41.9 ; Urinary retention R33.9 ; Diarrhea of presumed infectious origin R19.7 ; Weakness R53.1 ; Acute kidney failure, unspecified N17.9 ; Chronic kidney disease, stage III (moderate) N18.3 and Thoracic back pain, unspecified back pain laterality, unspecified chronicity M54.6 [address] [address] Oct, Thoracic back pain, unspecified back hao n laterality, unspecified chronicity M54.6 and Anxiety F41.9 [address] [address] Sep, Thoracic back pain, unspecified back hao n laterality, unspecified chronicity M54.6 and Anxiety F41.9 [address] [address] Sep, Thoracic back pain, unspecified back hao n laterality, unspecified chronicity M54.6 ; Anxiety F41.9 and Encounter for medication monitoring Z51.81 [address] [address] August, [address] [address] August, Thoracic back pain, unspecified back hao n laterality, unspecified chronicity M54.6 and Anxiety F41.9 [address] [place] [address] August, Hyperlipidemia E78.5 and HTN (hypertensi on) I10 [address] [address] August, [address] [place] [address] August, Medicare welcome exam Z00.00 ; Chronic k idney failure N18.9 ; Anxiety F41.9 ; Chronic pain G89.29 ; Insomnia G47.00 ; Hyperlipidemia E78.5 ; HTN (hypertension) I10 and Thoracic back pain, unspecified back pain laterality, unspecified chronicity M54.6 [address] [address] Jul, [address] [place] [address] Jul, [address] [address] Jul, [address] [place] [address] Jul, Anxiety F41.9 [address] [address] Jul, Thoracic back pain, unspecified back hao n laterality, unspecified chronicity M54.6 and Anxiety F41.9 [address] [place] [address] Jun, Thoracic back pain, unspecified back hao n laterality, unspecified chronicity M54.6 and Anxiety F41.9 [address] [address] May, Thoracic back pain, unspecified back hao n laterality, unspecified chronicity M54.6 and Anxiety F41.9 [address] [address] Apr, Thoracic back pain, unspecified back hao n laterality, unspecified chronicity M54.6 and Anxiety F41.9 [address] [address] Mar, [address] [address] Mar, Thoracic back pain, unspecified back hao n laterality, unspecified chronicity M54.6 and Anxiety F41.9 [address] [address] Mar, Thoracic back pain, unspecified back hao n laterality, unspecified chronicity M54.6 ; HTN (hypertension) I10 ; Hyperlipidemia E78.5 and Anxiety F41.9 [address] [address] Feb, Thoracic back pain, unspecified back hao n laterality, unspecified chronicity M54.6 and Anxiety F41.9 [address] [address] Nov, [address] [address] Oct, [address] [address] Oct, Thoracic back pain, unspecified back hao n laterality, unspecified chronicity M54.6 [address] [address] Oct, HTN (hypertension) I10 ; Constipation K5 9.00 ; Hyperlipidemia E78.5 ; Thoracic back pain, unspecified back pain laterality, unspecified chronicity M54.6 ; Chronic pain G89.29 ; Anxiety F41.9 ; Chronic kidney failure N18.9 ; Environmental allergies Z91.09 ; Vitamin D deficiency E55.9 and Primary insomnia F51.01 [address] [address] Sep, Anxiety F41.9 [address] [id number] [place] [address] Sep, [facility] [id number] [place] [address] August, Anxiety F41.9 [facility] [id number] [place] [address] August, [facility] [id number] [place] [address] Jul, Anxiety F41.9 [facility] [id number] [place] [address] Jul, [facility] [id number] [place] [address] Jun, Anxiety F41.9 [facility] [id number] [place] [address] Jun, [facility] [id number] [place] [address] May, [facility] [id number] [place] [address] May, [facility] [id number] [place] [address] May, [facility] [id number] [place] [address] Apr, [facility] [id number] [place] [address] Apr, [facility] [id number] [place] [address] Apr, Anxiety F41.9 [facility] [id number] [place] [address] Apr, Anxiety F41.9 [facility] [id number] [place] [address] Apr, [facility] [id number] [place] [address] Mar, HTN (hypertension) I10 ; Tremor R25.1 ; Hypercholesterolemia E78.0 ; Constipation K59.00 ; Chronic pain G89.29 ; Hyperlipidemia E78.5 ; Insomnia G47.00 ; Anxiety F41.9 and Thoracic back pain, unspecified back pain laterality, unspecified chronicity M54.6 [facility] [address] [address] Mar, Tremor R25.1 ; HTN (hypertension) I10 ; Hypercholesterolemia E78.0 ; Constipation K59.00 ; Chronic pain G89.29 ; Hyperlipidemia E78.5 ; Insomnia G47.00 ; Anxiety F41.9 and Thoracic back pain, unspecified back pain laterality, unspecified chronicity M54.6 [facility] [address] [address] Mar, [facility] [address] [address] Mar, [facility] [address] [address] Feb, [facility] [address] [address] Jan, [facility] [address] [address] Jan, [facility] [address] [address] Dec, [facility] [address] [address] Nov, [facility] [address] [address] Nov, [facility] [address] [address] Oct, Anxiety F41.9 [facility] [address] [address] Oct, Chronic pain G89.29 [facility] [address] [address] Sep, [address] [address] Sep, [place] [place] [address] [address] Sep, [address] [place] [address] Sep, [address] [place] [address] Sep, Chronic pain syndrome G89.4 [address] [place] [address] Sep, HTN (hypertension) I10 ; Chronic pain G8 9.29 ; Hypercholesterolemia E78.0 ; Chronic kidney failure N18.9 ; Constipation, unspecified constipation type K59.00 ; Anxiety F41.9 and Thoracic back pain, unspecified back pain laterality, unspecified chronicity M54.6 [address] [place] [address] [address] August, Chronic pain syndrome G89.4 [address] [place] [address] [address] August, Chronic pain syndrome G89.4 [address] [place] [address] [address] Jul, Anxiety disorder, unspecified F41.9 and Chronic pain syndrome G89.4 [address] [place] [address] Jul, Insomnia, unspecified G47.00 and Chronic pain syndrome G89.4 [address] [place] [address] [address] Jul, Allergic rhinitis J30.9 [address] [address] [address] Jul, Constipation, unspecified K59.00 [place] [address] [address] Jul, [facility] [id number] [place] [address] Jun, [facility] [id number] [place] [address] Jun, [facility] [id number] [place] [address] Jun, [facility] [id number] [place] [address] Jun, [facility] [id number] [place] [address] Jun, [facility] [id number] [place] [address] Jun, [facility] [id number] [place] [address] May, [facility] [id number] [place] [address] May, [facility] [id number] [place] [address] May, Anxiety F41.9 ; Insomnia G47.00 ; Hyperl ipidemia E78.5 ; Chronic pain G89.29 ; HTN (hypertension) I10 ; Environmental allergies V15.09 and Constipation 564.00 [facility] [id number] [place] [address] Apr, [facility] [id number] [place] [address] Apr, [facility] [id number] [place] [address] Apr, [facility] [id number] [place] [address] Mar, [facility] [id number] [place] [address] Mar, [facility] [address] [address] Mar, [place] [address] [address] Feb, [place] [address] [address] Feb, [facility] [address] [address] Feb, [address] [address] Jan, HTN (hypertension) I10 ; Constipation K5 9.00 ; Chronic pain G89.29 ; Hyperlipidemia E78.5 ; Hypercholesterolemia E78.0 ; Insomnia G47.00 and Anxiety F41.[address] [address] Jan, [address] [address] Dec, [address] [address] Nov, [address] [address] Oct, Chronic kidney disease, unspecified 585. 9 ; Chronic pain syndrome 338.4 ; Hyperlipidemia 272.4 and Essential hypertension 401.[address] [address] Oct, Chronic kidney disease 585.[address] [address] Oct, [address] [address] Oct, Chronic kidney disease, unspecified 585. 9 ; Hypercalcemia 275.42 ; Hyperlipidemia 272.4 ; Essential hypertension 401.9 ; Chronic pain syndrome 338.4 ; Insomnia 780.52 ; Constipation 564.00 ; Environmental allergies V15.09 and Anxiety [address] [address] Oct, Chronic kidney disease 585.9 [facility] [address] [id number] [place] [address] 15 Oct, [address] [facility] [address] [id number] [place] [address] 14 Oct, 2014 Chronic kidney disease 585.9 and Hyperli pidemia 272.4 [facility] [address] [id number] [place] [address] 10 Oct, 2014 [facility] [address] [id number] [place] [address] 10 Oct, 2014 [facility] [address] [id number] [place] [address] 18 Sep, 2014 [facility] [address] [id number] [place] [address] 15 Sep, 2014 [facility] [address] [id number] [place] [address] 15 Sep, 2014 Chronic kidney disease 585.9 and Hyperli pidemia 272.4 [facility] [address] [id number] [place] [address] Sep, [facility] [address] [id number] [place] [address] August, [facility] [address] [id number] [place] [address] August, [facility] [address] [id number] [place] [address] 14 Jul[facility] 2014 [facility] [address] [id number] [place] [address] Jul, [facility] [address] [id number] [place] [address] 20 Jun, 2014 [facility] [address] [id number] [place] [address] 20 Jun, 2014 [facility] [address] [id number] [place] [address] 16 Jun, 2014 [facility] [facility] [address] [id number] [place] [address] Jun, [facility] [place] [facility] [address] [facility] [id number] [place] [address] Jun, [facility] [place] [facility] [address] [facility] [id number] [place] [address] Jun, [facility] [place] [facility] [address] [id number] [place] [address] Jun, [facility] [place] [facility] [address] [id number] [place] [address] Jun, [facility] [place] [facility] [address] [id number] [place] [address] May, [facility] [place] [facility] [address] [id number] [place] [address] May, [facility] [place] [facility] [address] [id number] [place] [address] May, [facility] [place] [facility] [address] [id number] [place] [address] May, [facility] [place] [facility] [address] [id number] [place] [address] Apr, [facility] [place] [facility] [address] [id number] [place] [address] Apr, [facility] [place] [facility] [address] [id number] [place] [address] Apr, [facility] [place] [facility] [address] [id number] [place] [address] Apr, [facility] [place] [facility] [address] [id number] [place] [address] Apr, [facility] [place] [facility] [address] [id number] [place] [address] Apr, [facility] [place] [facility] [address] [id number] [place] [address] Apr, [facility] [place] [facility] [address] [id number] [place] [address] Apr, [facility] [place] [facility] [address] [id number] [place] [address] Apr, [facility] [place] [facility] [address] [id number] [place] [address] Apr, [facility] [place] [facility] [address] [id number] [place] [address] Apr, [facility] [place] [facility] [address] [id number] [place] [address] Mar, [facility] [place] [facility] [address] [id number] [place] [address] Mar, [facility] [place] [facility] [address] [id number] [place] [address] Feb, [facility] [place] [facility] [address] [id number] [place] [address] Feb, [facility] [place] [facility] [id number] [place] [address] Feb, [facility] [place] [facility] [address] [id number] [place] [address] Feb, [facility] [place] [facility] [address] [id number] [place] [address] Feb, [facility] [place] [facility] [address] [id number] [place] [address] Feb, [facility] [place] [facility] [id number] [place] [address] Feb, [facility] [place] [facility] [address] [id number] [place] [address] Feb, [facility] [place] [facility] [address] [id number] [place] [address] Feb, [facility] [place] [facility] [id number] [place] [address] Feb, [facility] [place] [facility] [address] [id number] [place] [address] Jan, [facility] [place] [facility] [address] [id number] [place] [address] Jan, 2013 [facility] [place] [facility] [address] [facility] [id number] [place] [address] Jan, [facility] [place] [facility] [address] [facility] [id number] [place] [address] Jan, [facility] [place] [facility] [address] [id number] [place] [address] Jan, [facility] [place] [facility] [address] [id number] [place] [address] 24 Jan, 2014 [facility] [place] [facility] [address] [facility] [id number] [place] [address] Jan, [facility] [place] [facility] [address] [id number] [place] [address] 17 Jan, 2013 [facility] [place] [facility] [address] [id number] [place] [address] 16 Jan, 2014 [facility] [place] [facility] [address] [id number] [place] [address] Jan, 2013 [facility] [place] [facility] [address] [id number] [place] [address] 06 Jan, 2013 [facility] [place] [facility] [address] [id number] [place] [address] 26 Dec, 2013 [facility] [place] [facility] [address] [id number] [place] [address] 26 Sep, 2013 [facility] [place] [facility] [address] [id number] [place] [address] 19 Sep, 2013 [facility] [place] [facility] [address] [facility] [id number] [place] [address] 19 Sep, 2013 [facility] [place] [facility] [address] [id number] [place] [address] 18 Sep, 2013 [facility] [place] [facility] [address] [id number] [place] [address] 18 Sep, 2013 [facility] [place] [facility] [address] [id number] [place] [address] 03 Sep, 2013 [facility] [place] [facility] [address] [id number] [place] [address] Dec, [facility] [place] [facility] [address] [id number] [place] [address] Nov, [facility] [place] [facility] [address] [facility] [id number] [place] [address] Nov, [facility] [place] [facility] [address] [id number] [place] [address] Nov, [facility] [place] [facility] [address] [facility] [id number] [place] [address] Nov, [facility] [place] [facility] [address] [facility] [id number] [place] [address] Nov, [facility] [place] [facility] [address] [id number] [place] [address] Nov, [facility] [place] [facility] [address] [id number] [place] [address] Nov, [facility] [place] [facility] [address] [id number] [place] [address] Nov, [facility] [place] [facility] [address] [id number] [place] [address] Oct, [facility] [place] [facility] [address] [id number] [place] [address] Oct, [facility] [place] [facility] [address] [id number] [place] [address] Oct, [facility] [place] [facility] [address] [id number] [place] [address] Oct, [facility] [place] [facility] [address] [facility] [id number] [place] [address] Sep, [facility] [place] [facility] [address] [id number] [place] [address] Sep, [facility] [place] [facility] [address] [id number] [place] [address] Sep, [facility] [place] [facility] [address] [id number] [place] [address] Sep, [facility] [place] [facility] [address] [id number] [place] [address] Sep, [facility] [place] [facility] [address] [id number] [place] [address] Sep, [facility] [place] [facility] [address] [id number] [place] [address] Sep, [facility] [place] [facility] [address] [id number] [place] [address] Sep, [facility] [place] [facility] [address] [id number] [place] [address] August, [facility] [place] [facility] [address] [id number] [place] [address] August, [facility] [place] [facility] [address] [id number] [place] [address] August, [facility] [place] [facility] [address] [id number] [place] [address] August, [facility] [place] [facility] [address] [id number] [place] [address] August, [facility] [place] [facility] [address] [id number] [place] [address] August, [facility] [place] [facility] [address] [id number] [place] [address] August, [facility] [place] [facility] [address] [id number] [place] [address] August, [facility] [place] [facility] [address] [id number] [place] [address] August, [facility] [place] [facility] [address] [id number] [place] [address] August, [facility] [place] [facility] [address] [id number] [place] [address] Jul, [facility] [place] [facility] [address] [id number] [place] [address] Jul, [facility] [place] [facility] [address] [id number] [place] [address] Jul, [facility] [place] [facility] [address] [facility] [id number] [facility] [place] [address] Jul, [facility] [place] [facility] [address] [facility] [id number] [facility] [place] [address] Jul, [facility] [place] [facility] [address] [id number] [facility] [place] [address] Jul, [facility] [place] [facility] [address] [id number] [facility] [place] [address] Jul, [facility] [place] [facility] [address] [facility] [id number] [facility] [address] Jul, [facility] [place] [facility] [address] [id number] [facility] [place] [address] Jun, [facility] [place] [facility] [address] [id number] [place] [address] Jun, [facility] [place] [facility] [address] [id number] [facility] [place] [address] Jun, [facility] [place] [facility] [address] [id number] [place] [address] Jun, [facility] [place] [facility] [address] [id number] [place] [address] Jun, [facility] [place] [facility] [address] [id number] [place] [address] Jun, [facility] [place] [facility] [address] [id number] [place] [address] May, [facility] [place] [facility] [address] [id number] [facility] [place] [address] May, [facility] [place] [facility] [address] [id number] [place] [address] May, [facility] [place] [facility] [address] [id number] [place] [address] May, [facility] [place] [facility] [address] [id number] [place] [address] May, [facility] [place] [facility] [address] [id number] [place] [address] 10 May, 2013 [facility] [address] [id number] [place] [address] 10 May, 2013 [facility] [place] [facility] [address] [id number] [place] [address] Apr, [facility] [place] [facility] [address] [id number] [place] [address] Apr, [facility] [place] [facility] [address] [id number] [place] [address] Apr, [facility] [place] [facility] [address] [id number] [place] [address] Apr, [facility] [place] [facility] [address] [id number] [place] [address] Apr, [facility] [place] [facility] [address] [id number] [place] [address] Apr, [facility] [place] [facility] [address] [id number] [place] [address] Mar, [facility] [place] [facility] [address] [id number] [place] [address] 31 Mar, 2013 [facility] [place] [facility] [address] [id number] [place] [address] Mar, [facility] [place] [facility] [address] [id number] [place] [address] Mar, [facility] [place] [facility] [address] [id number] [place] [address] 19 Mar, 2013 [facility] [place] [facility] [address] [id number] [place] [address] 19 Mar, 2013 [facility] [place] [facility] [address] [id number] [place] [address] 16 Mar, 2013 [facility] [place] [facility] [address] [id number] [place] [address] 16 Mar, 2013 [facility] [place] [facility] [address] [id number] [place] [address] Mar, [facility] [place] [facility] [address] [id number] [place] [address] Mar, [facility] [place] [facility] [address] [id number] [place] [address] Feb, [facility] [place] [facility] [address] [id number] [place] [address] Feb, [facility] [place] [facility] [address] [id number] [place] [address] Feb, [facility] [place] [facility] [address] [id number] [place] [address] Feb, [facility] [place] [facility] [address] [id number] [place] [address] Feb, [facility] [place] [facility] [address] [id number] [place] [address] 14 Feb, 2013 [facility] [place] [facility] [address] [id number] [place] [address] Feb, [facility] [place] [facility] [address] [id number] [place] [address] Feb, [facility] [place] [facility] [address] [id number] [place] [address] Feb, [facility] [place] [facility] [address] [id number] [place] [address] Feb, [facility] [place] [facility] [address] [id number] [place] [address] Jan, [facility] [place] [facility] [address] [id number] [place] [address] Jan, [facility] [place] [facility] [address] [id number] [place] [address] Jan, [facility] [place] [facility] [address] [id number] [place] [address] Jan, [facility] [place] [facility] [address] [id number] [place] [address] Jan, [facility] [place] [facility] [address] [id number] [facility] [address] Jan, [facility] [place] [facility] [address] [id number] [facility] [place] [address] Jan, [facility] [place] [facility] [address] [facility] [id number] [facility] [address] Jan, [facility] [place] [facility] [address] [facility] [id number] [place] [address] Jan, [facility] [place] [facility] [address] [facility] [id number] [facility] [address] Dec, [facility] [place] [facility] [address] [facility] [id number] [place] [address] Dec, [facility] [place] [facility] [address] [facility] [id number] [place] [address] Dec, [facility] [place] [facility] [address] [id number] [place] [address] Dec, [facility] [place] [facility] [address] [id number] [place] [address] Nov, [facility] [place] [facility] [address] [facility] [id number] [facility] [place] [address] Nov, [facility] [place] [facility] [address] [id number] [place] [address] Nov, [facility] [place] [facility] [address] [id number] [place] [address] Nov, [facility] [place] [facility] [address] [id number] [place] [address] Nov, [facility] [place] [facility] [address] [facility] [id number] [facility] [address] Nov, [facility] [place] [facility] [address] [id number] [place] [address] Oct, [facility] [place] [facility] [address] [facility] [id number] [facility] [place] [address] Oct, [facility] [place] [facility] [address] [id number] [place] [address] Oct, [facility] [place] [facility] [address] [id number] [place] [address] 08 Oct, 2012 [facility] [place] [facility] [address] [id number] [place] [address] 27 Sep, 2012 [facility] [place] [facility] [address] [id number] [place] [address] 19 Sep, 2012 [facility] [place] [facility] [address] [id number] [place] [address] 17 Sep, 2012 [facility] [place] [facility] [address] [id number] [place] [address] 14 Sep, 2012 [facility] [place] [facility] [address] [id number] [place] [address] 10 Sep, 2012 [facility] [place] [facility] [address] [id number] [place] [address] August, [facility] [place] [facility] [address] [id number] [place] [address] 2012 [facility] [place] [facility] [address] [id number] [place] [address] 19 Jul, 2012 [facility] [place] [facility] [address] [id number] [place] [address] 19 Jul, 2012 [facility] [place] [facility] [address] [id number] [place] [address] 15 Jul, 2012 [facility] [place] [facility] [address] [id number] [place] [address] 09 Jul, 2012 [facility] [place] [facility] [address] [id number] [place] [address] 08 Jul, 2012 [facility] [place] [facility] [address] [id number] [place] [address] 26 Jun, 2012 [facility] [place] [facility] [address] [id number] [place] [address] 20 Jun, 2012 [facility] [place] [facility] [address] [id number] [place] [address] 15 Jun, 2012 [facility] [place] [facility] [address] [id number] [place] [address] Jun, [facility] [address] [id number] [facility] [place] [address] Jun, [facility] [place] [facility] [address] [id number] [facility] [place] [address] May, [facility] [place] [facility] [address] [id number] [facility] [address] May, [facility] [place] [facility] [address] [id number] [facility] [address] May, [facility] [place] [facility] [address] [id number] [facility] [address] May, [facility] [place] [facility] [address] [id number] [facility] [address] May, [facility] [place] [facility] [address] [id number] [place] [address] May, [facility] [place] [facility] [address] [id number] [place] [address] May, [facility] [place] [facility] [address] [id number] [place] [address] May, [facility] [place] [facility] [address] [id number] [place] [address] May, [facility] [place] [facility] [address] [id number] [place] [address] Apr, [facility] [place] [facility] [address] [id number] [place] [address] Apr, [facility] [place] [facility] [address] [id number] [place] [address] Apr, [facility] [place] [facility] [address] [id number] [place] [address] Apr, [facility] [place] [facility] [address] [id number] [place] [address] Apr, [facility] [place] [facility] [address] [id number] [place] [address] Mar, [facility] [place] [facility] [address] [id number] [place] [address] Mar, [facility] [place] [facility] [address] [id number] [place] [address] Mar, [facility] [place] [facility] [address] [id number] [place] [address] Mar, [facility] [address] [id number] [place] [address] Mar, [facility] [address] [id number] [place] [address] Mar, [facility] [address] [id number] [place] [address] Mar, [facility] [address] [id number] [place] [address] Mar, [facility] [address] [id number] [place] [address] Mar, [facility] [address] [id number] [place] [address] Mar, [facility] [address] [id number] [place] [address] Feb, [facility] [address] [id number] [place] [address] Feb, [facility] [address] [id number] [place] [address] Feb, [facility] [address] [id number] [place] [address] Feb, [facility] [address] [id number] [place] [address] Feb, [facility] [address] [id number] [place] [address] Feb, [facility] [address] [id number] [place] [address] Feb, [facility] [address] [id number] [place] [address] Feb, [facility] [address] [id number] [place] [address] 16 Feb, 2012 [facility] [address] [id number] [place] [address] 16 Feb, 2012 [facility] [address] [id number] [place] [address] 13 Feb, 2012 [facility] [address] [id number] [place] [address] 13 Feb, 2012 [facility] [address] [id number] [place] [address] 12 Feb, 2012 [facility] [address] [id number] [place] [address] Feb, [facility] [address] [id number] [place] [address] 09 Feb, 2012 [facility] [address] [id number] [place] [address] 08 Feb, 2012 [facility] [address] [id number] [place] [address] Feb, [facility] [address] [id number] [place] [address] Feb, [facility] [address] [id number] [place] [address] Jan, [facility] [address] [id number] [place] [address] Jan, [facility] [address] [id number] [place] [address] 31 Jan, 2012 [facility] [address] [id number] [place] [address] 31 Jan, 2012 [facility] [address] [id number] [place] [address] 24 Jan, 2012 [facility] [address] [id number] [place] [address] 24 Jan, 2012 [facility] [address] [id number] [facility] [place] [address] Jan, [facility] [address] [facility] [id number] [facility] [place] [address] Jan, [facility] [address] [id number] [place] [address] Jan, [facility] [address] [id number] [place] [address] Jan, [facility] [address] [id number] [place] [address] Dec, [facility] [address] [facility] [id number] [facility] [place] [address] Dec, [facility] [address] [id number] [place] [address] Dec, [facility] [address] [id number] [place] [address] Dec, [facility] [address] [id number] [place] [address] Nov, [facility] [address] [id number] [place] [address] Nov, [facility] [address] [id number] [place] [address] Nov, [facility] [address] [id number] [place] [address] Nov, [facility] [address] [id number] [place] [address] Nov, [facility] [address] [id number] [place] [address] Nov, [facility] [address] [id number] [place] [address] Oct, [facility] [address] [id number] [place] [address] Oct, [facility] [address] [id number] [place] [address] Oct, [facility] [address] [id number] [place] [address] Oct, [facility] [address] [id number] [place] [address] Oct, [facility] [address] [id number] [place] [address] Sep, [facility] [address] [id number] [place] [address] Sep, [facility] [address] [id number] [place] [address] Sep, [facility] [address] [id number] [place] [address] Sep, [facility] [address] [id number] [place] [address] Sep, [facility] [address] [id number] [place] [address] August, [facility] [address] [id number] [place] [address] August, [facility] [address] [id number] [place] [address] August, [facility] [address] [id number] [place] [address] August, [facility] [address] [id number] [place] [address] Jul, [facility] [address] [id number] [place] [address] 24 Jul, 2011 [facility] [address] [id number] [place] [address] Jul, [facility] [address] [id number] [place] [address] Jul, [facility] [address] [id number] [place] [address] Jul, [facility] [address] [id number] [place] [address] Jul[facility] [address] [id number] [place] [address] Jul, [facility] [address] [id number] [place] [address] Jul, [facility] [address] [id number] [place] [address] Jul, [facility] [address] [id number] [place] [address] Jul, [facility] [address] [id number] [place] [address] Jul, [facility] [address] [id number] [place] [address] Jul, [facility] [address] [id number] [place] [address] Jul, [facility] [address] [id number] [place] [address] Jul, [facility] [address] [id number] [place] [address] Jun, [facility] [address] [id number] [place] [address] Jun, [facility] [address] [id number] [place] [address] Jun, [facility] [address] [id number] [place] [address] Jun, [facility] [address] [id number] [place] [address] May, [facility] [address] [id number] [place] [address] May, [facility] [address] [id number] [place] [address] May, [facility] [address] [id number] [place] [address] Apr, [facility] [address] [id number] [place] [address] 18 Apr, 2011 [facility] [address] [id number] [place] [address] 13 Apr, 2011 [facility] [address] [id number] [place] [address] 11 Apr, 2011 [facility] [address] [id number] [place] [address] 09 Apr, 2011 [facility] [address] [id number] [place] [address] Mar, [facility] [address] [id number] [place] [address] Mar, [facility] [address] [id number] [place] [address] Mar, [facility] [address] [id number] [place] [address] Mar, [facility] [address] [id number] [place] [address] Mar, [facility] [address] [id number] [place] [address] Mar, [facility] [address] [id number] [place] [address] Mar, [facility] [address] [id number] [place] [address] Feb, [facility] [address] [id number] [place] [address] Feb, [facility] [address] [id number] [place] [address] Feb, [facility] [id number] [place] [address] Feb, [facility] [address] [id number] [place] [address] 16 Feb, 2011 [facility] [address] [id number] [place] [address] 14 Feb, 2011 [facility] [address] [id number] [place] [address] Feb, [facility] [address] [id number] [place] [address] Jan, [facility] [address] [id number] [place] [address] Jan, [facility] [address] [id number] [place] [address] Jan, [facility] [address] [id number] [place] [address] 18 Jan, 2011 [facility] [address] [id number] [place] [address] Jan, [facility] [address] [id number] [place] [address] Jan, [facility] [address] [id number] [place] [address] Jun, [facility] [address] [id number] [place] [address] 30 Mar, 2010 [facility] [address] [id number] [place] [address] 20 Mar, 2010 [facility] [address] [id number] [place] [address] 14 Mar, 2010 [facility] [address] [id number] [place] [address] 14 Mar, 2010 [facility] [address] [id number] [place] [address] 13 Mar, 2010 [facility] [address] [id number] [place] [address] 07 Mar, 2010 [facility] [address] [id number] [place] [address] 02 Mar, 2010 [facility] [address] [id number] [place] [address] Mar, [facility] [address] [id number] [place] [address] 30 Feb, 2010 [facility] [address] [facility] [id number] [place] [address] 29 Feb, 2010 [facility] [address] [id number] [place] [address] Feb, [facility] [address] [id number] [place] [address] 17 Feb, 2010 [facility] [address] [id number] [place] [address] 16 Feb, 2010 [facility] [address] [facility] [id number] [place] [address] 08 Feb, 2010 [facility] [address] [id number] [place] [address] 04 Feb, 2010 [facility] [address] [id number] [place] [address] Feb, [facility] [address] [id number] [place] [address] 28 Jan, 2010 [facility] [address] [id number] [place] [address] Jan, [facility] [address] [id number] [place] [address] 25 Jan, 2010 [facility] [address] [id number] [place] [address] Jan, [facility] [address] [id number] [place] [address] 29 Mar, 2009 [facility] [address] [id number] [place] [address] 22 Mar, 2009 [facility] [address] [id number] [place] [address] 19 Mar, 2009 [facility] [address] [id number] [place] [address] 19 Mar, 2009 [facility] [address] [id number] [place] [address] 14 Mar, 2009 [facility] [address] [id number] [place] [address] Mar, [facility] [address] [id number] [place] [address] Feb, [facility] [address] [id number] [place] [address] Feb, [facility] [address] [id number] [place] [address] Jan, [facility] [id number] [place] [address] Sep, [facility] [address] [id number] [place] [address] May, IMMUNIZATIONS No Known Immunizations SOCIAL HISTORY [...] Surgical History Left ear surgery Hospitalization History [facility] in [place]- Spontane ous Pneumothorax Hospitalization History [facility]- Colon resection [facility] - diarrhea/ couldnt urin ate nov 2017 Hospitalization History pain /hip to foot right side 10/16/19 19
--- OUTSIDE RECORDS SUMMARY | 2019-08-28 08:56 | XMS REPORT ---
Author Author Dixon Lundberg Doctor Organization [facility] Address Unknown Phone Unavailable Care Team Providers Care [employer] Name Role Phone Migration, Doctor Unavailable Unavailable PROBLEMS Type Condition ICD9-CM Code VYA69-HV Code Onset Dates Condition S tatus SNOMED Code Problem Insomnia G47.00 Active 244733885 Problem Anxiety F41.9 Active 65569911 Problem HTN (hypertension) I10 Active 3 5456807 Problem Chronic pain G89.29 Active 4745669 1 Problem Constipation K59.00 Active 7836045 8 Problem Thoracic back pain, unspecif ied back pain laterality, unspecified chronicity M54.6 Active 018625090 Problem Hyperlipidemia E78.5 Active 35629 004 Problem Vitamin D deficiency E55.9 Active 73885895 Problem Chronic kidney disease, stage III (moderate) N18.3 Active 541480703 Problem Vision loss H54.7 Active 64455973 1 Problem Age-related cataract of both eyes, unspecified age-related cataract type H25.9 Active 85676689 Problem Primary insomnia F51.01 Active 397 2004 Problem Psychophysiologic insomnia F51.04 Act saúl 745589215 Problem Environmental allergies Z91.09 Active 146922372 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 13292007 Problem Schizophrenia, unspecified type F20.9 Active 13394154 Problem Psychophysiological insomnia F51.04 A ctive 112213814 Problem Psychophysiological insomnia F51.04 A ctive [id number] ALLERGIES No Information ENCOUNTERS Encounter Location Date Diagnosis [facility] [id number] [place] [address] May, [facility] [address] [address] May, Psychophysiologic insomnia F51.04 [address] [address] May, Other constipation K59.09 [address] [address] 11 May, 2019 Thoracic back pain, unspecified back hao n laterality, unspecified chronicity M54.6 [address] [address] 06 May, 2019 Anxiety F41.9 and Thoracic back pain, un specified back pain laterality, unspecified chronicity M54.6 [address] [address] 06 May, 2019 [address] [place] [address] Apr, [address] [address] Apr, [address] [address] Apr, Psychophysiological insomnia F51.04 [address] [address] Apr, Thoracic back pain, unspecified back hao n laterality, unspecified chronicity M54.6 [address] [address] 10 Apr, 2019 Thoracic back pain, unspecified back hao n laterality, unspecified chronicity M54.6 [address] [address] Apr, Anxiety F41.9 [address] [address] Apr, Psychophysiological insomnia F51.04 [address] [address] Mar, Encounter for Medicare annual wellness e [...] both eyes, unspecified age-related cataract type H25.9 [address] [place] [address] Mar, Thoracic back pain, unspecified back hao n laterality, unspecified chronicity M54.6 [address] [address] Mar, Psychophysiological insomnia F51.04 [address] [place] [address] [address] Mar, Thoracic back pain, unspecified back hao n laterality, unspecified chronicity M54.6 and Anxiety F41.9 [address] [address] Mar, Psychophysiological insomnia F51.04 [address] [address] Mar, [address] [address] Mar, Psychophysiological insomnia F51.04 [address] [address] Mar, [address] [address] Feb, [address] [place] [address] Feb, Thoracic back pain, unspecified back hao n laterality, unspecified chronicity M54.6 [address] [address] 14 Feb, 2019 Anxiety F41.9 and Thoracic back pain, un specified back pain laterality, unspecified chronicity M54.6 [address] [address] 07 Feb, 2019 Insomnia G47.00 ; HTN (hypertension) I10 and Constipation K59.00 [facility] [address] [address] Feb, [facility] [address] [address] Jan, Thoracic back pain, unspecified back hao n laterality, unspecified chronicity M54.6 [address] [address] Jan, Anxiety F41.9 [address] [address] Jan, Anxiety F41.9 [address] [address] Jan, Anxiety F41.9 and Thoracic back pain, un specified back pain laterality, unspecified chronicity M54.6 [address] [address] Jan, [address] [address] Jan, [facility] [address] [address] Dec, Thoracic back pain, unspecified back hao n laterality, unspecified chronicity M54.6 [address] [address] Dec, Thoracic back pain, unspecified back hao n laterality, unspecified chronicity M54.6 [address] [address] Nov, Thoracic back pain, unspecified back hoa n laterality, unspecified chronicity M54.6 [address] [address] Nov, Anxiety F41.9 and Thoracic back pain, un specified back pain laterality, unspecified chronicity M54.6 [address] [address] Nov, [facility] [id number] [place] [address] Nov, [facility] [address] [address] Nov, [facility] [id number] [place] [address] Oct, Thoracic back pain, unspecified back hao n laterality, unspecified chronicity M54.6 [facility] [address] [address] Oct, Anxiety F41.9 and Thoracic back pain, un specified back pain laterality, unspecified chronicity M54.6 [facility] [address] [address] Oct, Schizophrenia, unspecified type F20.9 an d Acute kidney injury N17.9 [facility] [address] [address] Oct, [facility] [address] [address] Oct, [facility] [address] [address] Oct, Thoracic back pain, unspecified back hao n laterality, unspecified chronicity M54.6 [facility] [address] [address] Oct, [facility] [address] [address] Oct, [facility] [address] [address] Sep, Anxiety F41.9 [facility] [address] [address] Sep, [facility] [address] [address] Sep, Thoracic back pain, unspecified back hao n laterality, unspecified chronicity M54.6 [facility] [address] [address] Sep, [facility] [address] [address] Sep, [facility] [address] [address] Sep, [facility] [address] [address] Sep, [facility] [address] [address] Sep, [facility] [address] [address] Sep, [facility] [address] [address] Sep, Chronic pain G89.29 ; Chronic kidney dis ease, stage III (moderate) N18.3 ; Hyperlipidemia E78.5 and Insomnia G47.00 [facility] [address] [address] Sep, Thoracic back pain, unspecified back hao n laterality, unspecified chronicity M54.6 [address] [address] August, Anxiety F41.9 [address] [address] August, Thoracic back pain, unspecified back hao n laterality, unspecified chronicity M54.6 and Anxiety F41.9 [facility] [address] [address] August, 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 [facility] [address] [address] August, 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 [facility] [address] [address] August, [facility] [address] [address] August, [facility] [id number] [place] [address] August, Thoracic back pain, unspecified back hao n laterality, unspecified chronicity M54.6 [facility] [id number] [place] [address] August, [facility] [address] [address] August, Anxiety F41.9 and Thoracic back pain, un specified back pain laterality, unspecified chronicity M54.6 [facility] [address] [address] Jul, [facility] [address] [address] Jul, Thoracic back pain, unspecified back hao n laterality, unspecified chronicity M54.6 [facility] [address] [address] Jun, Anxiety F41.9 and Thoracic back pain, un specified back pain laterality, unspecified chronicity M54.6 [facility] [address] [address] Jun, Anxiety F41.9 and Thoracic back pain, un specified back pain laterality, unspecified chronicity M54.6 [facility] [address] [address] Jun, Thoracic back pain, unspecified back hao n laterality, unspecified chronicity M54.6 [facility] [id number] [place] [address] Jun, Anxiety F41.9 and Thoracic back pain, un specified back pain laterality, unspecified chronicity M54.6 [facility] [address] [address] May, [facility] [address] [address] May, [facility] [address] [address] 08 May, 2018 [address] [address] 06 May, 2018 Anxiety F41.9 and Encounter for medicati on monitoring Z51.81 [address] [address] 05 May, 2018 Anxiety F41.9 and Thoracic back pain, un specified back pain laterality, unspecified chronicity M54.6 [address] [address] Apr, Hyperlipidemia 272.4 [address] [address] Apr, Chronic pain G89.29 ; Anxiety F41.9 ; Ce rvical radiculopathy M54.12 and Vision loss H54.7 [address] [address] Apr, [address] [address] Apr, Anxiety F41.9 and Thoracic back pain, un specified back pain laterality, unspecified chronicity M54.6 [address] [address] 17 Mar, 2018 [address] [address] Mar, Anxiety F41.9 and Thoracic back pain, un specified back pain laterality, unspecified chronicity M54.6 [address] [address] 14 Feb, 2018 Anxiety F41.9 and Thoracic back pain, un specified back pain laterality, unspecified chronicity M54.6 [address] [address] 07 Feb, 2018 Thoracic back pain, unspecified back hao n laterality, unspecified chronicity M54.6 [address] [address] Jan, [address] Jan, Anxiety F41.9 and Thoracic back pain, un specified back pain laterality, unspecified chronicity M54.6 [address] [address] Dec, Diarrhea of presumed infectious origin R 19.7 [address] [address] Dec, Diarrhea of presumed infectious origin R 19.7 [address] [address] 18 Dec, 2017 Thoracic back pain, unspecified back hao n laterality, unspecified chronicity M54.6 [address] [address] Dec, [address] [address] Dec, Anxiety F41.9 and Thoracic back pain, un specified back pain laterality, unspecified chronicity M54.6 [address] [address] Dec, Diarrhea of presumed infectious origin R 19.7 [address] [address] Dec, [address] [address] Dec, Anxiety F41.9 and Thoracic back pain, un specified back pain laterality, unspecified chronicity M54.6 [address] [address] Dec, Anxiety F41.9 and Thoracic back pain, un specified back pain laterality, unspecified chronicity M54.6 [facility] [address] [place] [id number] Dec, Diarrhea of presumed infectious origin R 19.7 ; Anxiety F41.9 ; Thoracic back pain, unspecified back pain laterality, unspecified chronicity M54.6 and HTN (hypertension) I10 [address] [address] Dec, Anxiety F41.9 [facility] [address] [place] [id number] Dec, Anxiety F41.9 ; Diarrhea of presumed inf ectious origin R19.7 ; Generalized abdominal pain R10.84 and Localized edema R60.0 [address] [address] Nov, [facility] [address] [place] [id number] Nov, Anxiety F41.9 ; Urinary retention R33.9 ; Diarrhea of presumed infectious origin R19.7 ; Weakness R53.1 ; Acute kidney failure, unspecified N17.9 ; Chronic kidney disease, stage III (moderate) N18.3 and Thoracic back pain, unspecified back pain laterality, unspecified chronicity M54.6 [address] [address] Oct, Thoracic back pain, unspecified back hao n laterality, unspecified chronicity M54.6 and Anxiety F41.9 [address] [address] Sep, Thoracic back pain, unspecified back hao n laterality, unspecified chronicity M54.6 and Anxiety F41.9 [address] [address] Sep, Thoracic back pain, unspecified back hao n laterality, unspecified chronicity M54.6 ; Anxiety F41.9 and Encounter for medication monitoring Z51.81 [address] [address] August, [address] [address] August, Thoracic back pain, unspecified back hao n laterality, unspecified chronicity M54.6 and Anxiety F41.9 [address] [address] August, Hyperlipidemia E78.5 and HTN (hypertensi on) I10 [address] [address] August, [address] [address] August, Medicare welcome exam Z00.00 ; Chronic k idney failure N18.9 ; Anxiety F41.9 ; Chronic pain G89.29 ; Insomnia G47.00 ; Hyperlipidemia E78.5 ; HTN (hypertension) I10 and Thoracic back pain, unspecified back pain laterality, unspecified chronicity M54.6 [address] [address] Jul, [address] [address] Jul, [address] [address] Jul, [address] [address] Jul, Anxiety F41.9 [address] [address] Jul, Thoracic back pain, unspecified back hao n laterality, unspecified chronicity M54.6 and Anxiety F41.9 [address] [address] Jun, Thoracic back pain, unspecified back hao n laterality, unspecified chronicity M54.6 and Anxiety F41.9 [address] [address] May, Thoracic back pain, unspecified back hao n laterality, unspecified chronicity M54.6 and Anxiety F41.9 [address] [address] Apr, Thoracic back pain, unspecified back hao n laterality, unspecified chronicity M54.6 and Anxiety F41.9 [address] [address] Mar, [address] [address] Mar, Thoracic back pain, unspecified back hao n laterality, unspecified chronicity M54.6 and Anxiety F41.9 [address] [address] Mar, Thoracic back pain, unspecified back hao n laterality, unspecified chronicity M54.6 ; HTN (hypertension) I10 ; Hyperlipidemia E78.5 and Anxiety F41.9 [address] [address] Feb, Thoracic back pain, unspecified back hao n laterality, unspecified chronicity M54.6 and Anxiety F41.9 [address] [address] Nov, [address] [address] Oct, [address] [address] Oct, Thoracic back pain, unspecified back hao n laterality, unspecified chronicity M54.6 [address] [address] Oct, HTN (hypertension) I10 ; Constipation K5 9.00 ; Hyperlipidemia E78.5 ; Thoracic back pain, unspecified back pain laterality, unspecified chronicity M54.6 ; Chronic pain G89.29 ; Anxiety F41.9 ; Chronic kidney failure N18.9 ; Environmental allergies Z91.09 ; Vitamin D deficiency E55.9 and Primary insomnia F51.01 [address] [address] Sep, Anxiety F41.9 [id number] [place] [address] Sep, [facility] [id number] [place] [address] August, Anxiety F41.9 [facility] [id number] [place] [address] August, [facility] [id number] [place] [address] Jul, Anxiety F41.9 [facility] [id number] [place] [address] Jul, [facility] [id number] [place] [address] Jun, Anxiety F41.9 [facility] [id number] [place] [address] Jun, [facility] [id number] [place] [address] May, [facility] [id number] [place] [address] May, [facility] [id number] [place] [address] May, [facility] [id number] [place] [address] Apr, [facility] [id number] [place] [address] Apr, [facility] [id number] [place] [address] Apr, Anxiety F41.9 [facility] [id number] [place] [address] Apr, Anxiety F41.9 [facility] [id number] [place] [address] Apr, [facility] [id number] [place] [address] Mar, HTN (hypertension) I10 ; Tremor R25.1 ; Hypercholesterolemia E78.0 ; Constipation K59.00 ; Chronic pain G89.29 ; Hyperlipidemia E78.5 ; Insomnia G47.00 ; Anxiety F41.9 and Thoracic back pain, unspecified back pain laterality, unspecified chronicity M54.6 [facility] [address] [address] Mar, Tremor R25.1 ; HTN (hypertension) I10 ; Hypercholesterolemia E78.0 ; Constipation K59.00 ; Chronic pain G89.29 ; Hyperlipidemia E78.5 ; Insomnia G47.00 ; Anxiety F41.9 and Thoracic back pain, unspecified back pain laterality, unspecified chronicity M54.6 [facility] [address] [address] Mar, [facility] [address] [address] Mar, [facility] [address] [address] Feb, [facility] [address] [address] Jan, [facility] [address] [address] Jan, [facility] [address] [address] Dec, [facility] [address] [address] Nov, [facility] [address] [address] Nov, [facility] [address] [address] Oct, Anxiety F41.9 [facility] [address] [address] Oct, Chronic pain G89.29 [facility] [address] [address] Sep, [address] [address] Sep, [address] [address] Sep, [address] [address] Sep, [address] [address] Sep, Chronic pain syndrome G89.4 [address] [address] Sep, HTN (hypertension) I10 ; Chronic pain G8 9.29 ; Hypercholesterolemia E78.0 ; Chronic kidney failure N18.9 ; Constipation, unspecified constipation type K59.00 ; Anxiety F41.9 and Thoracic back pain, unspecified back pain laterality, unspecified chronicity M54.6 [address] [address] August, Chronic pain syndrome G89.4 [address] [address] August, Chronic pain syndrome G89.4 [address] [address] Jul, Anxiety disorder, unspecified F41.9 and Chronic pain syndrome G89.4 [address] [address] Jul, Insomnia, unspecified G47.00 and Chronic pain syndrome G89.4 [address] [address] Jul, Allergic rhinitis J30.9 [address] [address] Jul, Constipation, unspecified K59.00 [address] [address] Jul, [facility] [id number] [place] [address] Jun, [facility] [id number] [place] [address] Jun, [facility] [id number] [place] [address] Jun, [facility] [id number] [place] [address] Jun, [facility] [id number] [place] [address] Jun, [facility] [id number] [place] [address] Jun, [facility] [id number] [place] [address] May, [facility] [id number] [place] [address] May, [facility] [id number] [place] [address] May, Anxiety F41.9 ; Insomnia G47.00 ; Hyperl ipidemia E78.5 ; Chronic pain G89.29 ; HTN (hypertension) I10 ; Environmental allergies V15.09 and Constipation 564.00 [facility] [id number] [place] [address] Apr, [facility] [id number] [place] [address] Apr, [facility] [id number] [place] [address] Apr, [facility] [id number] [place] [address] Mar, [facility] [id number] [place] [address] Mar, [facility] [address] [address] Mar, [address] [address] Feb, [address] [place] [address] Feb, [facility] [address] [address] Feb, [address] [address] Jan, HTN (hypertension) I10 ; Constipation K5 9.00 ; Chronic pain G89.29 ; Hyperlipidemia E78.5 ; Hypercholesterolemia E78.0 ; Insomnia G47.00 and Anxiety F41.[address] [address] Jan, [address] [address] Dec, [address] [address] Nov, [address] [address] Oct, Chronic kidney disease, unspecified 585. 9 ; Chronic pain syndrome 338.4 ; Hyperlipidemia 272.4 and Essential hypertension 401.[address] [address] Oct, Chronic kidney disease 585.[address] [address] Oct, [address] [address] Oct, Chronic kidney disease, unspecified 585. 9 ; Hypercalcemia 275.42 ; Hyperlipidemia 272.4 ; Essential hypertension 401.9 ; Chronic pain syndrome 338.4 ; Insomnia 780.52 ; Constipation 564.00 ; Environmental allergies V15.09 and Anxiety 300.[address] [address] Oct, Chronic kidney disease 585.9 [facility] [address] [id number] [place] [address] 15 Oct, 2014 [facility] [address] [id number] [place] [address] 14 Oct, 2014 Chronic kidney disease 585.9 and Hyperli pidemia 272.4 [facility] [address] [id number] [place] [address] 10 Oct, 2014 [facility] [address] [id number] [place] [address] 10 Oct, 2014 [facility] [address] [id number] [place] [address] 18 Sep, 2014 [facility] [address] [id number] [place] [address] 15 Sep, 2014 [facility] [address] [id number] [place] [address] 15 Sep, 2014 Chronic kidney disease 585.9 and Hyperli pidemia 272.4 [facility] [address] [id number] [place] [address] Sep, [facility] [address] [id number] [place] [address] August, [facility] [address] [id number] [place] [address] August, [facility] [address] [id number] [place] [address] 14 Jul, 2014 [facility] [facility] [address] [id number] [place] [address] Jul[facility] [facility] [address] [id number] [place] [address] 20 Jun, 2014 [facility] [address] [id number] [place] [address] 20 Jun, 2014 [facility] [facility] [address] [id number] [place] [address] 16 Jun, 2014 [facility] [facility] [address] [id number] [place] [address] Jun, [facility] [place] [facility] [address] [facility] [id number] [place] [address] Jun, [facility] [place] [facility] [address] [facility] [id number] [place] [address] Jun, [facility] [place] [facility] [address] [id number] [place] [address] Jun, [facility] [place] [facility] [address] [id number] [place] [address] Jun, [facility] [place] [facility] [address] [id number] [place] [address] May, [facility] [place] [facility] [address] [id number] [place] [address] May, [facility] [place] [facility] [address] [id number] [place] [address] May, [facility] [place] [facility] [address] [id number] [place] [address] May, [facility] [facility] [address] [id number] [place] [address] Apr, [facility] [place] [facility] [address] [id number] [place] [address] Apr, [facility] [place] [facility] [address] [id number] [place] [address] Apr, [facility] [facility] [address] [id number] [place] [address] Apr, [facility] [place] [facility] [address] [id number] [place] [address] Apr, [facility] [place] [facility] [address] [id number] [place] [address] Apr, [facility] [place] [facility] [address] [id number] [place] [address] Apr, [facility] [place] [facility] [address] [id number] [place] [address] Apr, [facility] [place] [facility] [address] [id number] [place] [address] Apr, [facility] [facility] [address] [id number] [place] [address] Apr, [facility] [facility] [address] [id number] [place] [address] Apr, [facility] [facility] [address] [id number] [place] [address] Mar, [facility] [facility] [address] [id number] [place] [address] Mar, [facility] [facility] [address] [id number] [place] [address] Feb, [facility] [facility] [address] [id number] [place] [address] Feb, [facility] [facility] [id number] [place] [address] Feb, [facility] [facility] [address] [id number] [place] [address] Feb, [facility] [facility] [address] [id number] [place] [address] Feb, [facility] [facility] [address] [id number] [place] [address] Feb, [facility] [place] [facility] [id number] [place] [address] Feb, [facility] [facility] [address] [id number] [place] [address] Feb, [facility] [facility] [address] [id number] [place] [address] Feb, [facility] [facility] [id number] [place] [address] Feb, [facility] [facility] [address] [id number] [place] [address] Jan, [facility] [facility] [address] [id number] [place] [address] Jan, 2013 [facility] [place] [facility] [address] [facility] [id number] [place] [address] Jan, [facility] [place] [facility] [address] [facility] [id number] [place] [address] Jan, [facility] [facility] [address] [id number] [place] [address] Jan, [facility] [facility] [address] [id number] [place] [address] 24 Jan, 2014 [facility] [facility] [address] [facility] [id number] [place] [address] Jan, [facility] [facility] [address] [id number] [place] [address] 17 Jan, 2013 [facility] [facility] [address] [id number] [place] [address] 16 Jan, 2014 [facility] [facility] [address] [id number] [place] [address] Jan, 2013 [facility] [facility] [address] [id number] [place] [address] 06 Jan, 2013 [facility] [facility] [address] [id number] [place] [address] 26 Dec, 2013 [facility] [facility] [address] [id number] [place] [address] 26 Sep, 2013 [facility] [facility] [address] [id number] [place] [address] 19 Sep, 2013 [facility] [facility] [address] [facility] [id number] [place] [address] 19 Sep, 2013 [facility] [facility] [address] [id number] [place] [address] 18 Sep, 2013 [facility] [facility] [address] [id number] [place] [address] 18 Sep, 2013 [facility] [address] [id number] [place] [address] 03 Sep, 2013 [facility] [facility] [address] [id number] [place] [address] Dec, [facility] [facility] [address] [id number] [place] [address] Nov, [facility] [facility] [address] [facility] [id number] [place] [address] Nov, [facility] [facility] [address] [id number] [place] [address] Nov, [facility] [facility] [address] [facility] [id number] [place] [address] Nov, [facility] [place] [facility] [address] [facility] [id number] [place] [address] Nov, [facility] [place] [facility] [address] [id number] [place] [address] Nov, [facility] [facility] [address] [id number] [place] [address] Nov, [facility] [facility] [address] [id number] [place] [address] Nov, [facility] [facility] [address] [id number] [place] [address] Oct, [facility] [facility] [address] [id number] [place] [address] Oct, [facility] [facility] [address] [id number] [place] [address] Oct, [facility] [place] [facility] [address] [id number] [place] [address] Oct, [facility] [facility] [address] [facility] [id number] [place] [address] Sep, [facility] [facility] [address] [id number] [place] [address] Sep, [facility] [facility] [address] [id number] [place] [address] Sep, [facility] [facility] [address] [id number] [place] [address] Sep, [facility] [facility] [address] [id number] [place] [address] Sep, [facility] [facility] [address] [id number] [place] [address] Sep, [facility] [facility] [address] [id number] [place] [address] Sep, [facility] [facility] [address] [id number] [place] [address] Sep, [facility] [place] [facility] [address] [id number] [place] [address] August, [facility] [facility] [address] [id number] [place] [address] August, [facility] [facility] [address] [id number] [place] [address] August, [facility] [place] [facility] [address] [id number] [place] [address] August, [facility] [place] [facility] [address] [id number] [place] [address] August, [facility] [place] [facility] [address] [id number] [place] [address] August, [facility] [place] [facility] [address] [id number] [place] [address] August, [facility] [place] [facility] [address] [id number] [place] [address] August, [facility] [place] [facility] [address] [id number] [place] [address] August, [facility] [place] [facility] [address] [id number] [place] [address] August, [facility] [place] [facility] [address] [id number] [place] [address] Jul, [facility] [place] [facility] [address] [id number] [place] [address] Jul, [facility] [place] [facility] [address] [id number] [place] [address] Jul, [facility] [place] [facility] [address] [facility] [id number] [facility] [place] [address] Jul, [facility] [place] [facility] [address] [facility] [id number] [facility] [place] [address] Jul, [facility] [place] [facility] [address] [id number] [facility] [place] [address] Jul, [facility] [place] [facility] [address] [id number] [facility] [place] [address] Jul, [facility] [place] [facility] [address] [facility] [id number] [facility] [place] [address] Jul, [facility] [place] [facility] [address] [id number] [facility] [place] [address] Jun, [facility] [place] [facility] [address] [id number] [place] [address] Jun, [facility] [place] [facility] [address] [id number] [facility] [place] [address] Jun, [facility] [place] [facility] [address] [id number] [place] [address] Jun, [facility] [place] [facility] [address] [id number] [place] [address] Jun, [facility] [place] [facility] [address] [id number] [place] [address] Jun, [facility] [place] [facility] [address] [id number] [place] [address] May, [facility] [place] [facility] [address] [id number] [facility] [place] [address] May, [facility] [place] [facility] [address] [id number] [place] [address] May, [facility] [place] [facility] [address] [id number] [place] [address] May, [facility] [place] [facility] [address] [id number] [place] [address] May, [facility] [place] [facility] [address] [id number] [place] [address] 10 May, 2013 [facility] [address] [id number] [place] [address] 10 May, 2013 [facility] [place] [facility] [address] [id number] [place] [address] Apr, [facility] [place] [facility] [address] [id number] [place] [address] Apr, [facility] [place] [facility] [address] [id number] [place] [address] Apr, [facility] [place] [facility] [address] [id number] [place] [address] Apr, [facility] [place] [facility] [address] [id number] [place] [address] Apr, [facility] [facility] [address] [id number] [place] [address] Apr, [facility] [place] [facility] [address] [id number] [place] [address] Mar, [facility] [facility] [address] [id number] [place] [address] 31 Mar, 2013 [facility] [facility] [address] [id number] [place] [address] Mar, [facility] [place] [facility] [address] [id number] [place] [address] Mar, [facility] [place] [facility] [address] [id number] [place] [address] 19 Mar, 2013 [facility] [place] [facility] [address] [id number] [place] [address] 19 Mar, 2013 [facility] [place] [facility] [address] [id number] [place] [address] 16 Mar, 2013 [facility] [place] [facility] [address] [id number] [place] [address] 16 Mar, 2013 [facility] [place] [facility] [address] [id number] [place] [address] Mar, [facility] [place] [facility] [address] [id number] [place] [address] Mar, [facility] [place] [facility] [address] [id number] [place] [address] Feb, [facility] [place] [facility] [address] [id number] [place] [address] Feb, [facility] [place] [facility] [address] [id number] [place] [address] Feb, [facility] [place] [facility] [address] [id number] [place] [address] Feb, [facility] [place] [facility] [address] [id number] [place] [address] Feb, [facility] [place] [facility] [address] [id number] [place] [address] 14 Feb, 2013 [facility] [place] [facility] [address] [id number] [place] [address] Feb, [facility] [place] [facility] [address] [id number] [place] [address] Feb, [facility] [place] [facility] [address] [id number] [place] [address] Feb, [facility] [place] [facility] [address] [id number] [place] [address] Feb, [facility] [place] [facility] [address] [id number] [place] [address] Jan, [facility] [facility] [address] [id number] [place] [address] Jan, [facility] [facility] [address] [id number] [place] [address] Jan, [facility] [facility] [address] [id number] [place] [address] Jan, [facility] [place] [facility] [address] [id number] [place] [address] Jan, [facility] [place] [facility] [address] [id number] [facility] [place] [address] Jan, [facility] [place] [facility] [address] [id number] [facility] [place] [address] Jan, [facility] [facility] [address] [facility] [id number] [facility] [place] [address] Jan, [facility] [facility] [address] [facility] [id number] [place] [address] Jan, [facility] [facility] [address] [facility] [id number] [facility] [place] [address] Dec, [facility] [place] [facility] [address] [facility] [id number] [place] [address] Dec, [facility] [place] [facility] [address] [facility] [id number] [place] [address] Dec, [facility] [place] [facility] [address] [id number] [place] [address] Dec, [facility] [place] [facility] [address] [id number] [place] [address] Nov, [facility] [place] [facility] [address] [facility] [id number] [facility] [place] [address] Nov, [facility] [place] [facility] [address] [id number] [place] [address] Nov, [facility] [place] [facility] [address] [id number] [place] [address] Nov, [facility] [place] [facility] [address] [id number] [place] [address] Nov, [facility] [place] [facility] [address] [facility] [id number] [facility] [place] [address] Nov, [facility] [place] [facility] [address] [id number] [place] [address] Oct, [facility] [place] [facility] [address] [facility] [id number] [facility] [place] [address] Oct, [facility] [place] [facility] [address] [id number] [place] [address] Oct, [facility] [place] [facility] [address] [id number] [place] [address] 08 Oct, 2012 [facility] [place] [facility] [address] [id number] [place] [address] 27 Sep, 2012 [facility] [place] [facility] [address] [id number] [place] [address] 19 Sep, 2012 [facility] [place] [facility] [address] [id number] [place] [address] 17 Sep, 2012 [facility] [place] [facility] [address] [id number] [place] [address] 14 Sep, 2012 [facility] [place] [facility] [address] [id number] [place] [address] 10 Sep, 2012 [facility] [place] [facility] [address] [id number] [place] [address] August, [facility] [place] [facility] [address] [id number] [place] [address] 2012 [facility] [place] [facility] [address] [id number] [place] [address] 19 Jul, 2012 [facility] [place] [facility] [address] [id number] [place] [address] 19 Jul, 2012 [facility] [place] [facility] [address] [id number] [place] [address] 15 Jul, 2012 [facility] [place] [facility] [address] [id number] [place] [address] 09 Jul, 2012 [facility] [place] [facility] [address] [id number] [place] [address] 08 Jul, 2012 [facility] [facility] [address] [id number] [place] [address] 26 Jun, 2012 [facility] [place] [facility] [address] [id number] [place] [address] 20 Jun, 2012 [facility] [place] [facility] [address] [id number] [place] [address] 15 Jun, 2012 [facility] [place] [facility] [address] [id number] [place] [address] Jun, [facility] [address] [id number] [facility] [place] [address] Jun, [facility] [place] [facility] [address] [id number] [facility] [place] [address] May, [facility] [place] [facility] [address] [id number] [facility] [place] [address] May, [facility] [place] [facility] [address] [id number] [facility] [place] [address] May, [facility] [facility] [address] [id number] [facility] [place] [address] May, [facility] [place] [facility] [address] [id number] [facility] [place] [address] May, [facility] [place] [facility] [address] [id number] [place] [address] May, [facility] [place] [facility] [address] [id number] [place] [address] May, [facility] [place] [facility] [address] [id number] [place] [address] May, [facility] [place] [facility] [address] [id number] [place] [address] May, [facility] [facility] [address] [id number] [place] [address] Apr, [facility] [place] [facility] [address] [id number] [place] [address] Apr, [facility] [place] [facility] [address] [id number] [place] [address] Apr, [facility] [facility] [address] [id number] [place] [address] Apr, [facility] [facility] [address] [id number] [place] [address] Apr, [facility] [facility] [address] [id number] [place] [address] Mar, [facility] [facility] [address] [id number] [place] [address] Mar, [facility] [facility] [address] [id number] [place] [address] Mar, [facility] [facility] [address] [id number] [place] [address] Mar, [facility] [address] [id number] [place] [address] Mar, [facility] [facility] [address] [id number] [place] [address] Mar, [facility] [address] [id number] [place] [address] Mar, [facility] [facility] [address] [id number] [place] [address] Mar, [facility] [address] [id number] [place] [address] Mar, [facility] [facility] [address] [facility] [id number] [place] [address] Mar, [facility] [address] [facility] [id number] [place] [address] Feb, [facility] [address] [facility] [id number] [place] [address] Feb, [facility] [address] [facility] [id number] [place] [address] Feb, [facility] [address] [facility] [id number] [place] [address] Feb, [facility] [address] [id number] [place] [address] Feb, [facility] [address] [facility] [id number] [place] [address] Feb, [facility] [address] [facility] [id number] [place] [address] Feb, [facility] [address] [id number] [place] [address] Feb, [facility] [address] [facility] [id number] [place] [address] 16 Feb, 2012 [facility] [address] [facility] [id number] [place] [address] 16 Feb, 2012 [facility] [address] [facility] [id number] [place] [address] 13 Feb, 2012 [facility] [address] [facility] [id number] [place] [address] 13 Feb, 2012 [facility] [address] [id number] [place] [address] 12 Feb, 2012 [facility] [address] [facility] [id number] [place] [address] Feb, [facility] [address] [id number] [place] [address] 09 Feb, 2012 [facility] [address] [facility] [id number] [place] [address] 08 Feb, 2012 [facility] [address] [id number] [place] [address] Feb, [facility] [address] [id number] [place] [address] Feb, [facility] [address] [id number] [place] [address] Jan, [facility] [address] [id number] [place] [address] Jan, [facility] [address] [id number] [place] [address] 31 Jan, 2012 [facility] [address] [id number] [place] [address] 31 Jan, 2012 [facility] [address] [facility] [id number] [place] [address] 24 Jan, 2012 [facility] [address] [id number] [place] [address] 24 Jan, 2012 [facility] [address] [id number] [facility] [place] [address] Jan, [facility] [address] [facility] [id number] [facility] [place] [address] Jan, [facility] [address] [facility] [id number] [place] [address] Jan, [facility] [address] [facility] [id number] [place] [address] Jan, [facility] [address] [id number] [place] [address] Dec, [facility] [address] [facility] [id number] [facility] [place] [address] Dec, [facility] [address] [facility] [id number] [place] [address] Dec, [facility] [address] [id number] [place] [address] Dec, [facility] [address] [facility] [id number] [place] [address] Nov, [facility] [address] [facility] [id number] [place] [address] Nov, [facility] [address] [facility] [id number] [place] [address] Nov, [facility] [address] [facility] [id number] [place] [address] Nov, [facility] [address] [facility] [id number] [place] [address] Nov, [facility] [address] [facility] [id number] [place] [address] Nov, [facility] [address] [facility] [id number] [place] [address] Oct, [facility] [address] [facility] [id number] [place] [address] Oct, [facility] [address] [facility] [id number] [place] [address] Oct, [facility] [address] [id number] [place] [address] Oct, [facility] [address] [facility] [id number] [place] [address] Oct, [facility] [address] [facility] [id number] [place] [address] Sep, [facility] [address] [facility] [id number] [place] [address] Sep, [facility] [address] [facility] [id number] [place] [address] Sep, [facility] [address] [facility] [id number] [place] [address] Sep, [facility] [address] [facility] [id number] [place] [address] Sep, [facility] [address] [facility] [id number] [place] [address] August, [facility] [address] [facility] [id number] [place] [address] August, [facility] [address] [facility] [id number] [place] [address] August, [facility] [address] [facility] [id number] [place] [address] August, [facility] [address] [facility] [id number] [place] [address] Jul, [facility] [address] [facility] [id number] [place] [address] 24 Jul, 2011 [facility] [address] [facility] [id number] [place] [address] Jul, [facility] [address] [facility] [id number] [place] [address] Jul, [facility] [address] [facility] [id number] [place] [address] Jul, [facility] [address] [facility] [id number] [place] [address] Jul, [facility] [address] [facility] [id number] [place] [address] Jul, [facility] [address] [facility] [id number] [place] [address] Jul, [facility] [address] [facility] [id number] [place] [address] Jul, [facility] [address] [facility] [id number] [place] [address] Jul, [facility] [address] [facility] [id number] [place] [address] Jul, [facility] [address] [id number] [place] [address] Jul, [facility] [address] [facility] [id number] [place] [address] Jul, [facility] [address] [facility] [id number] [place] [address] Jul, [facility] [address] [id number] [place] [address] Jun, [facility] [address] [facility] [id number] [place] [address] Jun, [facility] [address] [facility] [id number] [place] [address] Jun, [facility] [address] [facility] [id number] [place] [address] Jun, [facility] [address] [facility] [id number] [place] [address] May, [facility] [address] [facility] [id number] [place] [address] May, [facility] [address] [facility] [id number] [place] [address] May, [facility] [address] [facility] [id number] [place] [address] Apr, [facility] [address] [facility] [id number] [place] [address] 18 Apr, 2011 [facility] [address] [id number] [place] [address] 13 Apr, 2011 [facility] [address] [id number] [place] [address] 11 Apr, 2011 [facility] [address] [id number] [place] [address] 09 Apr, 2011 [facility] [address] [id number] [place] [address] Mar, [facility] [address] [id number] [place] [address] Mar, [facility] [address] [id number] [place] [address] Mar, [facility] [address] [id number] [place] [address] Mar, [facility] [address] [id number] [place] [address] Mar, [facility] [address] [id number] [place] [address] Mar, [facility] [address] [id number] [place] [address] Mar, [facility] [address] [id number] [place] [address] Feb, [facility] [address] [id number] [place] [address] Feb, [facility] [address] [id number] [place] [address] Feb, [facility] [id number] [place] [address] Feb, [facility] [address] [id number] [place] [address] 16 Feb, 2011 [facility] [address] [id number] [place] [address] 14 Feb, 2011 [facility] [address] [id number] [place] [address] Feb, [facility] [address] [id number] [place] [address] Jan, [facility] [address] [id number] [place] [address] Jan, [facility] [address] [id number] [place] [address] Jan, [facility] [address] [id number] [place] [address] 18 Jan, 2011 [facility] [address] [id number] [place] [address] Jan, [facility] [address] [id number] [place] [address] Jan, [facility] [address] [id number] [place] [address] Jun, [facility] [address] [id number] [place] [address] 30 Mar, 2010 [facility] [address] [id number] [place] [address] 20 Mar, 2010 [facility] [address] [id number] [place] [address] 14 Mar, 2010 [facility] [address] [id number] [place] [address] 14 Mar, 2010 [facility] [address] [id number] [place] [address] 13 Mar, 2010 [facility] [address] [id number] [place] [address] 07 Mar, 2010 [facility] [address] [id number] [place] [address] 02 Mar, 2010 [facility] [address] [id number] [place] [address] Mar, [facility] [address] [id number] [place] [address] 30 Feb, 2010 [facility] [address] [facility] [id number] [place] [address] 29 Feb, 2010 [facility] [address] [id number] [place] [address] Feb, [facility] [address] [id number] [place] [address] 17 Feb, 2010 [facility] [address] [id number] [place] [address] 16 Feb, 2010 [facility] [address] [facility] [id number] [place] [address] 08 Feb, 2010 [facility] [address] [id number] [place] [address] 04 Feb, 2010 [facility] [address] [id number] [place] [address] Feb, [facility] [address] [id number] [place] [address] 28 Jan, 2010 [facility] [address] [id number] [place] [address] Jan, [facility] [address] [id number] [place] [address] 25 Jan, 2010 [facility] [address] [id number] [place] [address] Jan, [facility] [address] [id number] [place] [address] 29 Mar, 2009 [facility] [address] [id number] [place] [address] 22 Mar, 2009 [facility] [address] [id number] [place] [address] 19 Mar, 2009 [facility] [address] [id number] [place] [address] 19 Mar, 2009 [facility] [address] [id number] [place] [address] 14 Mar, 2009 [facility] [address] [id number] [place] [address] Mar, [facility] [address] [id number] [place] [address] Feb, [facility] [address] [id number] [place] [address] Feb, [facility] [address] [id number] [place] [address] Jan, [facility] [id number] [place] [address] Sep, [facility] [address] [id number] [place] [address] May, IMMUNIZATIONS No Known Immunizations SOCIAL HISTORY [...] History Left ear surgery Hospitalization History [facility] in [place]- Spontane ous Pneumothorax Hospitalization History [facility]- Colon resection Hospitalization History [facility] - diarrhea/ couldnt urin ate nov 2017 Hospitalization History pain /hip to foot right side 10/16/19 19
--- OUTSIDE RECORDS SUMMARY | 2019-08-28 08:56 | XMS REPORT ---
Author Author Dixon Reina Organization 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 Name Role Phone CÉSAR Reina Unavailable PROBLEMS Type Condition ICD9-CM Code [id number] Code Onset Dates Condition S tatus SNOMED Code Problem HTN (hypertension) I10 Active 3 9638076 Problem Insomnia G47.00 Active 344634817 Problem Constipation K59.00 Active 1174320 8 Problem Anxiety F41.9 Active 13117275 Problem Hyperlipidemia E78.5 Active 38271 004 Problem Chronic pain G89.29 Active 2080452 1 Problem Environmental allergies Z91.09 Active 416476227 Problem Primary insomnia F51.01 Active 397 2004 Problem Chronic kidney disease, stage III (moderate) N18.3 Active 155346099 Problem Psychophysiological insomnia F51.04 A ctive 616931045 Problem Vitamin D deficiency E55.9 Active 50817662 Problem Age-related cataract of both eyes, unspecified age-related cataract type H25.9 Active 99761890 Problem Thoracic back pain, unspecif ied back pain laterality, unspecified chronicity M54.6 Active 271674877 Problem Vision loss H54.7 Active 88244564 1 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 [id number] [place] [address] 13 May, [address] [facility] [address] [address] 11 May, 2019 Thoracic back pain, unspecified back hao n laterality, unspecified chronicity M54.6 [facility] [address] [address] 06 May, 2019 Anxiety F41.9 and Thoracic back pain, un specified back pain laterality, unspecified chronicity M54.6 [facility] [address] [address] 06 May, 2019 [facility] [address] [address] Apr, [address] [address] Apr, [facility] [facility] [address] [address] Apr, Psychophysiological insomnia F51.04 [facility] [address] [address] Apr, Thoracic back pain, unspecified back hao n laterality, unspecified chronicity M54.6 [facility] [address] [address] Apr, Thoracic back pain, unspecified back hao n laterality, unspecified chronicity M54.6 [facility] [address] [address] Apr, Anxiety F41.9 [facility] [address] [address] Apr, Psychophysiological insomnia F51.04 [facility] [address] [address] Mar, Encounter for Medicare annual wellness e [...] both eyes, unspecified age-related cataract type H25.9 [facility] [address] [address] Mar, Thoracic back pain, unspecified back hao n laterality, unspecified chronicity M54.6 [facility] [address] [address] 16 Mar, 2019 Psychophysiological insomnia F51.04 [facility] [address] [address] Mar, Thoracic back pain, unspecified back hao n laterality, unspecified chronicity M54.6 and Anxiety F41.9 [facility] [address] [address] Mar, Psychophysiological insomnia F51.04 [facility] [address] [address] Mar, [facility] [address] [address] Mar, Psychophysiological insomnia F51.04 [facility] [facility] [address] [address] Mar, [facility] [address] [address] Feb, [facility] [address] [address] Feb, Thoracic back pain, unspecified back hao n laterality, unspecified chronicity M54.6 [facility] [address] [address] Feb, Anxiety F41.9 and Thoracic back pain, un specified back pain laterality, unspecified chronicity M54.6 [facility] [facility] [address] [address] 07 Feb, 2019 Insomnia G47.00 ; HTN (hypertension) I10 and Constipation K59.00 [facility] [address] [address] Feb, [facility] [address] [address] Jan, Thoracic back pain, unspecified back hao n laterality, unspecified chronicity M54.6 [facility] [address] [address] Jan, Anxiety F41.9 [facility] [address] [address] Jan, Anxiety F41.9 [facility] [address] [address] Jan, Anxiety F41.9 and Thoracic back pain, un specified back pain laterality, unspecified chronicity M54.6 [facility] [address] [address] Jan, [facility] [address] [address] Jan, [facility] [address] [address] Dec, Thoracic back pain, unspecified back hao n laterality, unspecified chronicity M54.6 [facility] [address] [address] Dec, Thoracic back pain, unspecified back hao n laterality, unspecified chronicity M54.6 [facility] [address] [address] Nov, Thoracic back pain, unspecified back hao n laterality, unspecified chronicity M54.6 [facility] [address] [address] Nov, Anxiety F41.9 and Thoracic back pain, un specified back pain laterality, unspecified chronicity M54.6 [facility] [address] [address] Nov, [facility] [address] [address] Nov, [facility] [address] [address] Nov, [facility] [address] [address] Oct, Thoracic back pain, unspecified back hao n laterality, unspecified chronicity M54.6 [facility] [address] [address] Oct, Anxiety F41.9 and Thoracic back pain, un specified back pain laterality, unspecified chronicity M54.6 [facility] [address] [address] Oct, Schizophrenia, unspecified type F20.9 an d Acute kidney injury N17.9 [facility] [address] [address] Oct, [facility] [address] [address] Oct, [facility] [address] [address] Oct, Thoracic back pain, unspecified back hao n laterality, unspecified chronicity M54.6 [facility] [address] [address] Oct, [facility] [address] [address] Oct, [facility] [address] [address] Sep, Anxiety F41.9 [facility] [address] [address] Sep, [facility] [address] [address] Sep, Thoracic back pain, unspecified back hao n laterality, unspecified chronicity M54.6 [facility] [address] [address] Sep, [facility] [address] [address] Sep, [facility] [address] [address] Sep, [facility] [address] [address] Sep, [facility] [address] [address] Sep, [facility] [address] [address] Sep, 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 [address] [address] August, [facility] [address] [address] August, [facility] [address] [address] August, Thoracic back pain, unspecified back hao n laterality, unspecified chronicity M54.6 [facility] [address] [address] August, [facility] [address] [address] August, Anxiety F41.9 and Thoracic back pain, un specified back pain laterality, unspecified chronicity M54.6 [facility] [address] [address] Jul, [facility] [address] [address] Jul, Thoracic back pain, unspecified back hao n laterality, unspecified chronicity M54.6 [facility] [address] [address] Jun, Anxiety F41.9 and Thoracic back pain, un specified back pain laterality, unspecified chronicity M54.6 [facility] [address] [address] Jun, Anxiety F41.9 and Thoracic back pain, un specified back pain laterality, unspecified chronicity M54.6 [facility] [address] [address] Jun, Thoracic back pain, unspecified back hao n laterality, unspecified chronicity M54.6 [facility] [address] [address] Jun, Anxiety F41.9 and Thoracic back pain, un specified back pain laterality, unspecified chronicity M54.6 [facility] [address] [address] May, [facility] [address] [address] May, [facility] [address] [address] May, [facility] [address] [address] May, Anxiety F41.9 and Encounter for medicati on monitoring Z51.81 [address] [address] May, Anxiety F41.9 and Thoracic back pain, un specified back pain laterality, unspecified chronicity M54.6 [address] [facility] [address] Apr, Hyperlipidemia 272.4 [address] [address] Apr, Chronic pain G89.29 ; Anxiety F41.9 ; Ce rvical radiculopathy M54.12 and Vision loss H54.7 [address] [facility] [address] Apr, [address] [facility] [address] Apr, Anxiety F41.9 and Thoracic back pain, un specified back pain laterality, unspecified chronicity M54.6 [address] [address] Mar, [address] [address] Mar, Anxiety F41.9 and Thoracic back pain, un specified back pain laterality, unspecified chronicity M54.6 [address] [address] Feb, Anxiety F41.9 and Thoracic back pain, un specified back pain laterality, unspecified chronicity M54.6 [address] [address] 07 Feb, 2018 Thoracic back pain, unspecified back hao n laterality, unspecified chronicity M54.6 [address] [address] Jan, [address] [facility] [address] Jan, Anxiety F41.9 and Thoracic back pain, un specified back pain laterality, unspecified chronicity M54.6 [address] [address] 19 Dec, 2017 Diarrhea of presumed infectious origin R 19.7 [address] [address] 19 Dec, 2017 Diarrhea of presumed infectious origin R 19.7 [address] [address] 18 Dec, 2017 Thoracic back pain, unspecified back hao n laterality, unspecified chronicity M54.6 [address] [address] 17 Dec, 2017 [address] [address] Dec, Anxiety F41.9 and Thoracic back pain, un specified back pain laterality, unspecified chronicity M54.6 [address] [address] 13 Dec, 2017 Diarrhea of presumed infectious origin R 19.7 [address] [address] Dec, [address] [facility] [address] Dec, Anxiety F41.9 and Thoracic back pain, un specified back pain laterality, unspecified chronicity M54.6 [address] [address] Dec, Anxiety F41.9 and Thoracic back pain, un specified back pain laterality, unspecified chronicity M54.6 [facility] [address] [place] [id number] Dec, Diarrhea of presumed infectious origin R 19.7 ; Anxiety F41.9 ; Thoracic back pain, unspecified back pain laterality, unspecified chronicity M54.6 and HTN (hypertension) I10 [address] [address] Dec, Anxiety F41.9 [facility] [address] [place] [id number] Dec, Anxiety F41.9 ; Diarrhea of presumed inf ectious origin R19.7 ; Generalized abdominal pain R10.84 and Localized edema R60.0 [address] [address] Nov, [facility] [address] [place] [id number] Nov, Anxiety F41.9 ; Urinary retention R33.9 ; Diarrhea of presumed infectious origin R19.7 ; Weakness R53.1 ; Acute kidney failure, unspecified N17.9 ; Chronic kidney disease, stage III (moderate) N18.3 and Thoracic back pain, unspecified back pain laterality, unspecified chronicity M54.6 [address] [address] Oct, Thoracic back pain, unspecified back hao n laterality, unspecified chronicity M54.6 and Anxiety F41.9 [address] [address] Sep, Thoracic back pain, unspecified back hao n laterality, unspecified chronicity M54.6 and Anxiety F41.9 [address] [address] Sep, Thoracic back pain, unspecified back hao n laterality, unspecified chronicity M54.6 ; Anxiety F41.9 and Encounter for medication monitoring Z51.81 [address] [address] August, [address] [facility] [address] August, Thoracic back pain, unspecified back hao n laterality, unspecified chronicity M54.6 and Anxiety F41.9 [address] [address] August, Hyperlipidemia E78.5 and HTN (hypertensi on) I10 [address] [address] August, [address] [facility] [address] August, Medicare welcome exam Z00.00 ; Chronic k idney failure N18.9 ; Anxiety F41.9 ; Chronic pain G89.29 ; Insomnia G47.00 ; Hyperlipidemia E78.5 ; HTN (hypertension) I10 and Thoracic back pain, unspecified back pain laterality, unspecified chronicity M54.6 [address] [address] Jul, [address] [facility] [address] Jul, [address] [facility] [address] Jul, [address] [address] Jul, Anxiety F41.9 [address] [address] Jul, Thoracic back pain, unspecified back hao n laterality, unspecified chronicity M54.6 and Anxiety F41.9 [address] [address] Jun, Thoracic back pain, unspecified back hao n laterality, unspecified chronicity M54.6 and Anxiety F41.9 [address] [address] May, Thoracic back pain, unspecified back hao n laterality, unspecified chronicity M54.6 and Anxiety F41.9 [address] [address] Apr, Thoracic back pain, unspecified back hao n laterality, unspecified chronicity M54.6 and Anxiety F41.9 [address] [address] Mar, [address] [address] Mar, Thoracic back pain, unspecified back hao n laterality, unspecified chronicity M54.6 and Anxiety F41.9 [address] [address] Mar, Thoracic back pain, unspecified back hao n laterality, unspecified chronicity M54.6 ; HTN (hypertension) I10 ; Hyperlipidemia E78.5 and Anxiety F41.9 [address] [address] Feb, Thoracic back pain, unspecified back hao n laterality, unspecified chronicity M54.6 and Anxiety F41.9 [address] [address] Nov, [address] [address] Oct, [address] [address] Oct, Thoracic back pain, unspecified back hao n laterality, unspecified chronicity M54.6 [address] [address] Oct, HTN (hypertension) I10 ; Constipation K5 9.00 ; Hyperlipidemia E78.5 ; Thoracic back pain, unspecified back pain laterality, unspecified chronicity M54.6 ; Chronic pain G89.29 ; Anxiety F41.9 ; Chronic kidney failure N18.9 ; Environmental allergies Z91.09 ; Vitamin D deficiency E55.9 and Primary insomnia F51.01 [address] [address] Sep, Anxiety F41.9 [address] [address] Sep, [address] [address] August, Anxiety F41.9 [facility] [address] [address] August, [facility] [address] [address] Jul, Anxiety F41.9 [facility] [address] [address] Jul, [facility] [address] [address] Jun, Anxiety F41.9 [facility] [address] [address] Jun, [facility] [address] [address] May, [facility] [address] [address] May, [facility] [address] [address] May, [facility] [address] [address] Apr, [facility] [address] [address] Apr, [facility] [address] [address] Apr, Anxiety F41.9 [facility] [address] [address] Apr, Anxiety F41.9 [facility] [address] [address] Apr, [facility] [address] [address] Mar, HTN (hypertension) I10 ; Tremor R25.1 ; Hypercholesterolemia E78.0 ; Constipation K59.00 ; Chronic pain G89.29 ; Hyperlipidemia E78.5 ; Insomnia G47.00 ; Anxiety F41.9 and Thoracic back pain, unspecified back pain laterality, unspecified chronicity M54.6 [facility] [id number] [place] [address] Mar, Tremor R25.1 ; HTN (hypertension) I10 ; Hypercholesterolemia E78.0 ; Constipation K59.00 ; Chronic pain G89.29 ; Hyperlipidemia E78.5 ; Insomnia G47.00 ; Anxiety F41.9 and Thoracic back pain, unspecified back pain laterality, unspecified chronicity M54.6 [facility] [address] [address] Mar, [facility] [address] [address] Mar, [facility] [address] [address] Feb, [facility] [address] [address] Jan, [facility] [address] [address] Jan, [facility] [address] [address] Dec, [facility] [address] [address] Nov, [facility] [address] [address] Nov, [facility] [address] [address] Oct, Anxiety F41.9 [facility] [address] [address] Oct, Chronic pain G89.29 [facility] [address] [address] Sep, [facility] [address] [address] Sep, [facility] [address] [address] Sep, [facility] [address] [address] Sep, [address] [address] Sep, Chronic pain syndrome G89.4 [facility] [facility] [address] Sep, HTN (hypertension) I10 ; Chronic pain G8 9.29 ; Hypercholesterolemia E78.0 ; Chronic kidney failure N18.9 ; Constipation, unspecified constipation type K59.00 ; Anxiety F41.9 and Thoracic back pain, unspecified back pain laterality, unspecified chronicity M54.6 [facility] [address] August, Chronic pain syndrome G89.4 [facility] [address] August, Chronic pain syndrome G89.4 [facility] [address] Jul, Anxiety disorder, unspecified F41.9 and Chronic pain syndrome G89.4 [address] [address] Jul, Insomnia, unspecified G47.00 and Chronic pain syndrome G89.4 [facility] [facility] [address] Jul, Allergic rhinitis J30.9 [facility] [facility] [address] [address] Jul, Constipation, unspecified K59.00 [facility] [address] [address] Jul, [facility] [facility] [address] [address] Jun, [facility] [facility] [address] [address] Jun, [facility] [id number] [place] [address] Jun, [facility] [id number] [place] [address] Jun, [facility] [id number] [place] [address] Jun, [facility] [id number] [place] [address] Jun, [facility] [id number] [place] [address] May, [facility] [id number] [place] [address] May, [facility] [id number] [place] [address] May, Anxiety F41.9 ; Insomnia G47.00 ; Hyperl ipidemia E78.5 ; Chronic pain G89.29 ; HTN (hypertension) I10 ; Environmental allergies V15.[address] [facility] [id number] [place] [address] Apr, [facility] [id number] [place] [address] Apr, [facility] [id number] [place] [address] Apr, [facility] [id number] [place] [address] Mar, [facility] [id number] [place] [address] Mar, [facility] [id number] [place] [address] Mar, [facility] [id number] [place] [address] Feb, [facility] [id number] [place] [address] Feb, [facility] [address] [address] Feb, [facility] [facility] [address] [address] Jan, HTN (hypertension) I10 ; Constipation K5 9.00 ; Chronic pain G89.29 ; Hyperlipidemia E78.5 ; Hypercholesterolemia E78.0 ; Insomnia G47.[address] [facility] [address] [address] Jan, [facility] [address] [address] Dec, [facility] [facility] [address] [address] Nov, [facility] [facility] [address] [address] Oct, Chronic kidney disease, unspecified 585. 9 ; Chronic pain syndrome 338.4 ; Hyperlipidemia 272.4 and Essential hypertension 401.9 [facility] [address] [address] Oct, Chronic kidney disease 585.9 [facility] [address] [address] Oct, [facility] [address] [address] Oct, Chronic kidney disease, unspecified 585. 9 ; Hypercalcemia 275.42 ; Hyperlipidemia 272.4 ; Essential hypertension 401.9 ; Chronic pain syndrome 338.4 ; Insomnia 780.52 ; Constipation 564.00 ; Environmental allergies V15.[address] [facility] [address] [address] Oct, Chronic kidney disease 585.9 [facility] [address] [address] Oct, [facility] [address] [address] 14 Oct, 2014 Chronic kidney disease 585.9 and Hyperli pidemia 272.4 [facility] [id number] [place] [address] 10 Oct, 2014 [facility] [address] [id number] [place] [address] 10 Oct, 2014 [facility] [id number] [place] [address] 18 Sep, 2014 [facility] [id number] [place] [address] 15 Sep, 2014 [facility] [id number] [place] [address] 15 Sep, 2014 Chronic kidney disease 585.9 and Hyperli pidemia 272.4 [facility] [id number] [place] [address] Sep, [facility] [id number] [place] [address] August, [facility] [address] [id number] [place] [address] August, [facility] [id number] [place] [address] 14 Jul, 2014 [facility] [address] [id number] [place] [address] 13 Jul, 2014 [facility] [id number] [place] [address] 20 Jun, 2014 [facility] [address] [id number] [place] [address] 20 Jun, 2014 [facility] [id number] [place] [address] 16 Jun, 2014 [facility] [id number] [place] [address] 16 Jun, 2014 [facility] [id number] [place] [address] 09 Jun, 2014 [facility] [address] [id number] [place] [address] Jun, [facility] [address] [id number] [place] [address] Jun, [facility] [address] [id number] [place] [address] Jun, [facility] [address] [id number] [place] [address] May, [facility] [address] [id number] [place] [place] [address] May, [facility] [place] [facility] [address] [id number] [place] [address] May, [facility] [place] [facility] [address] [id number] [place] [address] May, [facility] [place] [facility] [address] [id number] [place] [address] Apr, [facility] [place] [facility] [address] [id number] [place] [address] Apr, [facility] [place] [facility] [address] [id number] [place] [address] Apr, [facility] [place] [facility] [address] [id number] [place] [address] Apr, [facility] [place] [facility] [address] [id number] [place] [address] Apr, [facility] [place] [facility] [address] [id number] [place] [address] Apr, [facility] [place] [facility] [address] [id number] [place] [address] Apr, [facility] [place] [facility] [address] [id number] [place] [address] Apr, [facility] [place] [facility] [address] [id number] [place] [address] Apr, [facility] [place] [facility] [address] [id number] [place] [address] Apr, [facility] [place] [facility] [address] [id number] [place] [address] Apr, [facility] [place] [facility] [address] [id number] [place] [address] Mar, [facility] [place] [facility] [address] [id number] [place] [address] Mar, [facility] [place] [facility] [address] [id number] [place] [address] Feb, [facility] [place] [facility] [address] [id number] [place] [address] Feb, [facility] [place] [facility] [address] [id number] [place] [address] Feb, [facility] [place] [facility] [address] [id number] [place] [address] Feb, [facility] [place] [facility] [address] [id number] [place] [address] Feb, [facility] [place] [facility] [address] [id number] [place] [address] Feb, [facility] [place] [facility] [address] [id number] [place] [address] Feb, [facility] [place] [facility] [address] [id number] [place] [address] Feb, [facility] [place] [facility] [address] [id number] [place] [address] Feb, [facility] [place] [facility] [address] [id number] [place] [address] Feb, [facility] [place] [facility] [address] [id number] [place] [address] Jan, [facility] [place] [facility] [address] [id number] [place] [address] Jan, [facility] [place] [facility] [address] [id number] [place] [address] Jan, [facility] [place] [facility] [address] [id number] [place] [address] Jan, [facility] [place] [facility] [address] [facility] [id number] [place] [address] Jan, [facility] [place] [facility] [address] [id number] [place] [address] Jan, [facility] [place] [facility] [address] [id number] [place] [address] Jan, [facility] [place] [facility] [address] [id number] [place] [address] Jan, [facility] [place] [facility] [address] [id number] [place] [address] Jan, [facility] [place] [facility] [address] [id number] [place] [address] Jan, [facility] [place] [facility] [address] [id number] [place] [address] Jan, [facility] [place] [facility] [address] [id number] [place] [address] Dec, 2013 [facility] [place] [facility] [address] [id number] [place] [address] 26 Dec, 2013 [facility] [place] [facility] [address] [id number] [place] [address] 19 Dec, 2013 [facility] [place] [facility] [address] [id number] [place] [address] 19 Dec, 2013 [facility] [place] [facility] [address] [id number] [place] [address] 18 Dec, 2013 [facility] [place] [facility] [address] [id number] [place] [address] 18 Dec, 2013 [facility] [place] [facility] [address] [id number] [place] [address] Dec, 2013 [facility] [place] [facility] [address] [id number] [place] [address] Dec, 2013 [facility] [place] [facility] [address] [id number] [place] [address] Nov, [facility] [place] [facility] [address] [id number] [place] [address] Nov, [facility] [place] [facility] [address] [id number] [place] [address] Nov, [facility] [place] [facility] [address] [id number] [place] [address] Nov, [facility] [place] [facility] [address] [id number] [place] [address] Nov, [facility] [place] [facility] [address] [facility] [id number] [place] [address] Nov, [facility] [place] [facility] [address] [id number] [place] [address] Nov, [facility] [place] [facility] [address] [id number] [place] [address] Nov, [facility] [place] [facility] [address] [id number] [place] [address] Oct, [facility] [place] [facility] [address] [id number] [place] [address] Oct, [facility] [place] [facility] [address] [id number] [place] [address] Oct, [facility] [place] [facility] [address] [id number] [place] [address] Oct, [facility] [place] [facility] [address] [id number] [place] [address] Sep, [facility] [place] [facility] [address] [id number] [place] [address] Sep, [facility] [place] [facility] [address] [facility] [id number] [place] [address] Sep, [facility] [place] [facility] [address] [id number] [place] [address] Sep, [facility] [place] [facility] [address] [id number] [place] [address] Sep, [facility] [place] [facility] [address] [id number] [place] [address] Sep, [facility] [place] [facility] [address] [facility] [id number] [place] [address] Sep, [facility] [place] [facility] [address] [facility] [id number] [place] [address] Sep, [facility] [place] [facility] [address] [id number] [place] [address] August, [facility] [place] [facility] [address] [id number] [place] [address] August, [facility] [place] [facility] [address] [facility] [id number] [place] [address] August, [facility] [place] [facility] [address] [id number] [place] [address] August, [facility] [place] [facility] [address] [id number] [place] [address] August, [facility] [place] [facility] [address] [id number] [place] [address] August, [facility] [place] [facility] [address] [id number] [place] [address] August, [facility] [place] [facility] [address] [id number] [place] [address] August, [facility] [place] [facility] [address] [id number] [place] [address] August, [facility] [place] [facility] [address] [id number] [place] [address] August, [facility] [place] [facility] [address] [id number] [place] [address] Jul, [facility] [place] [facility] [address] [id number] [place] [address] Jul, [facility] [place] [facility] [address] [id number] [place] [address] Jul, [facility] [place] [facility] [address] [id number] [place] [address] Jul, [facility] [place] [facility] [address] [id number] [place] [address] 18 Jul, 2013 [facility] [place] [facility] [address] [facility] [id number] [place] [address] 18 Jul, 2013 [facility] [place] [facility] [address] [facility] [id number] [place] [address] Jul, [facility] [place] [facility] [address] [id number] [place] [address] Jul, [facility] [place] [facility] [address] [id number] [place] [address] Jun, [facility] [place] [facility] [address] [facility] [id number] [place] [address] Jun, [facility] [place] [facility] [address] [id number] [place] [address] Jun, [facility] [place] [facility] [address] [id number] [place] [address] Jun, [facility] [place] [facility] [address] [id number] [place] [address] Jun, [facility] [place] [facility] [address] [id number] [place] [address] Jun, [facility] [place] [facility] [address] [id number] [place] [address] May, [facility] [place] [facility] [address] [id number] [place] [address] May, [facility] [place] [facility] [address] [id number] [place] [address] May, [facility] [place] [facility] [address] [facility] [id number] [place] [address] May, [facility] [place] [facility] [address] [id number] [place] [address] May, [facility] [place] [facility] [address] [id number] [place] [address] May, [facility] [place] [facility] [address] [id number] [place] [address] May, [facility] [address] [id number] [place] [address] Apr, [facility] [place] [facility] [address] [id number] [place] [address] Apr, [facility] [place] [facility] [address] [id number] [place] [address] Apr, [facility] [place] [facility] [address] [id number] [place] [address] Apr, [facility] [place] [facility] [address] [id number] [place] [address] Apr, [facility] [place] [facility] [address] [id number] [place] [address] Apr, [facility] [place] [facility] [address] [id number] [place] [address] Mar, [facility] [place] [facility] [address] [id number] [place] [address] Mar, [facility] [place] [facility] [address] [id number] [place] [address] Mar, [facility] [place] [facility] [address] [id number] [place] [address] Mar, [facility] [place] [facility] [address] [id number] [place] [address] Mar, [facility] [place] [facility] [address] [id number] [place] [address] Mar, [facility] [place] [facility] [address] [id number] [place] [address] 16 Mar, 2013 [facility] [place] [facility] [address] [id number] [place] [address] 16 Mar, 2013 [facility] [place] [facility] [address] [id number] [place] [address] Mar, [facility] [place] [facility] [address] [id number] [place] [address] Mar, [facility] [place] [facility] [address] [id number] [place] [address] Feb, [facility] [place] [facility] [address] [id number] [place] [address] Feb, [facility] [place] [facility] [address] [id number] [place] [address] Feb, [facility] [place] [facility] [address] [id number] [place] [address] Feb, [facility] [place] [facility] [address] [id number] [place] [address] Feb, [facility] [place] [facility] [address] [id number] [place] [address] Feb, [facility] [place] [facility] [address] [id number] [place] [address] Feb, [facility] [place] [facility] [address] [id number] [place] [address] Feb, [facility] [place] [facility] [address] [id number] [place] [address] Feb, [facility] [place] [facility] [address] [id number] [place] [address] Feb, [facility] [place] [facility] [address] [id number] [place] [address] Jan, [facility] [place] [facility] [address] [id number] [place] [address] Jan, [facility] [place] [facility] [address] [id number] [place] [address] Jan, [facility] [place] [facility] [address] [id number] [place] [address] Jan, [facility] [place] [facility] [address] [id number] [place] [address] Jan, [facility] [place] [facility] [address] [id number] [place] [address] Jan, [facility] [place] [facility] [address] [id number] [place] [address] Jan, 2012 [facility] [place] [facility] [address] [id number] [place] [address] Jan, [facility] [place] [facility] [address] [facility] [id number] [place] [address] Jan, [facility] [place] [facility] [address] [facility] [id number] [place] [address] Dec, [facility] [place] [facility] [address] [id number] [place] [address] Dec, [facility] [place] [facility] [address] [facility] [id number] [place] [address] Dec, [facility] [place] [facility] [address] [facility] [id number] [place] [address] Dec, [facility] [place] [facility] [address] [id number] [place] [address] Nov, [facility] [place] [facility] [address] [id number] [place] [address] Nov, [facility] [place] [facility] [address] [id number] [place] [address] Nov, [facility] [place] [facility] [address] [id number] [place] [address] Nov, [facility] [place] [facility] [address] [id number] [place] [address] Nov, [facility] [place] [facility] [address] [id number] [place] [address] Nov, [facility] [place] [facility] [address] [id number] [place] [address] Oct, [facility] [place] [facility] [address] [id number] [place] [address] Oct, [facility] [place] [facility] [address] [id number] [place] [address] Oct, [facility] [place] [facility] [address] [id number] [place] [address] Oct, [facility] [place] [facility] [address] [id number] [place] [address] Sep, [facility] [place] [facility] [address] [id number] [place] [address] Sep, [facility] [place] [facility] [address] [id number] [place] [address] 17 Sep, 2012 [facility] [place] [facility] [address] [id number] [place] [address] 14 Sep, 2012 [facility] [place] [facility] [address] [id number] [place] [address] 10 Sep, 2012 [facility] [place] [facility] [address] [facility] [id number] [place] [address] August, [facility] [place] [facility] [address] [id number] [place] [address] August, [facility] [place] [facility] [address] [id number] [place] [address] Jul, [facility] [place] [facility] [address] [id number] [place] [address] Jul, [facility] [place] [facility] [address] [id number] [place] [address] 15 Jul, 2012 [facility] [place] [facility] [address] [id number] [place] [address] 09 Jul, 2012 [facility] [place] [facility] [address] [id number] [place] [address] 08 Jul, 2012 [facility] [place] [facility] [address] [id number] [place] [address] Jun, [facility] [place] [facility] [address] [id number] [place] [address] Jun, [facility] [place] [facility] [address] [id number] [place] [address] 15 Jun, 2012 [facility] [place] [facility] [address] [id number] [place] [address] 06 Jun, 2012 [facility] [place] [facility] [address] [id number] [place] [address] Jun, [facility] [place] [facility] [address] [id number] [place] [address] May, [facility] [place] [facility] [address] [facility] [id number] [place] [address] May, [facility] [place] [facility] [address] [id number] [place] [address] May, [facility] [place] [facility] [address] [id number] [place] [address] May, [facility] [place] [facility] [address] [id number] [place] [address] May, [facility] [place] [facility] [address] [id number] [place] [address] 14 May, 2012 [facility] [place] [facility] [address] [id number] [place] [address] May, [facility] [place] [facility] [address] [id number] [place] [address] May, [facility] [place] [facility] [address] [id number] [place] [address] May, [facility] [place] [facility] [address] [id number] [place] [address] Apr, [facility] [place] [facility] [address] [id number] [place] [address] Apr, [facility] [place] [facility] [address] [id number] [place] [address] Apr, [facility] [place] [facility] [address] [id number] [place] [address] Apr, [facility] [place] [facility] [address] [id number] [place] [address] Apr, [facility] [place] [facility] [address] [id number] [place] [address] Mar, [facility] [place] [facility] [address] [id number] [place] [address] Mar, [facility] [place] [facility] [address] [id number] [place] [address] Mar, [facility] [place] [facility] [address] [id number] [place] [address] Mar, [facility] [place] [facility] [address] [id number] [place] [address] Mar, [facility] [place] [facility] [address] [id number] [place] [address] Mar, [facility] [place] [facility] [address] [id number] [place] [address] Mar, [facility] [place] [facility] [address] [id number] [place] [address] Mar, [facility] [place] [facility] [address] [id number] [place] [address] Mar, [facility] [place] [facility] [address] [id number] [place] [address] Mar, [facility] [place] [facility] [address] [id number] [place] [address] 30 Feb, 2012 [facility] [place] [facility] [address] [id number] [place] [address] 30 Feb, 2012 [facility] [place] [facility] [address] [id number] [place] [address] 29 Feb, 2012 [facility] [place] [facility] [address] [id number] [place] [address] 29 Feb, 2012 [facility] [place] [facility] [address] [id number] [place] [address] Feb, [facility] [place] [facility] [address] [id number] [place] [address] Feb, [facility] [place] [facility] [address] [id number] [place] [address] Feb, [facility] [place] [facility] [address] [id number] [place] [address] 20 Feb, 2012 [facility] [place] [facility] [address] [id number] [place] [address] 16 Feb, 2012 [facility] [place] [facility] [address] [id number] [place] [address] 16 Feb, 2012 [facility] [place] [facility] [address] [id number] [place] [address] Feb, [facility] [place] [facility] [address] [id number] [place] [address] Feb, [facility] [place] [facility] [address] [id number] [place] [address] Feb, [facility] [place] [facility] [address] [id number] [place] [address] Feb, [facility] [place] [facility] [address] [id number] [place] [address] Feb, [facility] [place] [facility] [address] [id number] [place] [address] Feb, [facility] [place] [facility] [address] [id number] [place] [address] Feb, [facility] [place] [facility] [address] [id number] [place] [address] Feb, [facility] [place] [facility] [address] [id number] [place] [address] Jan, [facility] [place] [facility] [address] [id number] [place] [address] Jan, [facility] [place] [facility] [address] [id number] [place] [address] Jan, [facility] [place] [facility] [address] [id number] [place] [address] 31 Jan, 2012 [facility] [place] [facility] [address] [id number] [place] [address] 24 Jan, 2012 [facility] [address] [id number] [place] [address] 24 Jan, 2012 [facility] [address] [id number] [place] [address] Jan, [facility] [address] [id number] [place] [address] Jan, [facility] [address] [id number] [place] [address] Jan, [facility] [address] [id number] [place] [address] Jan, [facility] [address] [id number] [place] [address] Dec, [facility] [address] [id number] [place] [address] Dec, [facility] [address] [id number] [place] [address] Dec, [facility] [address] [id number] [place] [address] Dec, [facility] [address] [id number] [place] [address] Nov, [facility] [address] [id number] [place] [address] Nov, [facility] [address] [id number] [place] [address] Nov, [facility] [address] [id number] [place] [address] Nov, [facility] [address] [id number] [place] [address] Nov, [facility] [address] [id number] [place] [address] Nov, [facility] [address] [id number] [place] [address] Oct, [facility] [address] [id number] [place] [address] Oct, [facility] [address] [id number] [place] [address] Oct, [facility] [address] [id number] [place] [address] Oct, [facility] [address] [id number] [place] [address] Oct, [facility] [address] [id number] [place] [address] Sep, [facility] [address] [id number] [place] [address] Sep, [facility] [address] [id number] [place] [address] Sep, [facility] [address] [id number] [place] [address] Sep, [facility] [address] [id number] [place] [address] Sep, [facility] [address] [id number] [place] [address] August, [facility] [address] [id number] [place] [address] August, [facility] [address] [id number] [place] [address] August, [facility] [address] [id number] [place] [address] August, [facility] [address] [id number] [place] [address] Jul, [facility] [address] [id number] [place] [address] 24 Jul, 2011 [facility] [address] [id number] [place] [address] Jul, [facility] [address] [id number] [place] [address] Jul, [facility] [address] [id number] [place] [address] 18 Jul, 2011 [facility] [address] [id number] [place] [address] 12 Jul, 2011 [facility] [address] [id number] [place] [address] Jul, [facility] [address] [id number] [place] [address] 10 Jul, 2011 [facility] [address] [id number] [place] [address] Jul, [facility] [address] [id number] [place] [address] Jul, [facility] [address] [id number] [place] [address] Jul, [facility] [address] [id number] [place] [address] Jul, [facility] [address] [id number] [place] [address] Jul, [facility] [address] [id number] [place] [address] Jul, [facility] [address] [id number] [place] [address] Jun, [facility] [address] [id number] [place] [address] Jun, [facility] [address] [id number] [place] [address] Jun, [facility] [address] [id number] [place] [address] Jun, [facility] [address] [id number] [place] [address] May, [facility] [address] [id number] [place] [address] May, [facility] [address] [id number] [place] [address] May, [facility] [address] [id number] [place] [address] Apr, [facility] [address] [id number] [place] [address] Apr, [facility] [address] [id number] [place] [address] Apr, [facility] [address] [id number] [place] [address] Apr, [facility] [address] [id number] [place] [address] Apr, [facility] [address] [id number] [place] [address] Mar, [facility] [address] [id number] [place] [address] Mar, [facility] [address] [id number] [place] [address] Mar, [facility] [address] [id number] [place] [address] Mar, [facility] [address] [id number] [place] [address] Mar, [facility] [id number] [place] [address] Mar, [facility] [address] [id number] [place] [address] Mar, [facility] [address] [id number] [place] [address] Feb, [facility] [address] [id number] [place] [address] Feb, [facility] [address] [id number] [place] [address] Feb, [facility] [address] [id number] [place] [address] Feb, [facility] [address] [id number] [place] [address] 16 Feb, 2011 [facility] [id number] [place] [address] 14 Feb, 2011 [facility] [address] [id number] [place] [address] 10 Feb, 2011 [facility] [address] [id number] [place] [address] 31 Jan, 2011 [facility] [address] [facility] [id number] [place] [address] 31 Jan, 2011 [facility] [address] [facility] [id number] [place] [address] 31 Jan, 2011 [facility] [address] [id number] [place] [address] 18 Jan, 2011 [facility] [address] [id number] [place] [address] 17 Jan, 2011 [facility] [address] [facility] [id number] [place] [address] 17 Jan, 2011 [facility] [address] [id number] [place] [address] Jun, [facility] [address] [id number] [place] [address] 30 Mar, 2010 [facility] [address] [id number] [place] [address] 20 Mar, 2010 [facility] [address] [id number] [place] [address] 14 Mar, 2010 [facility] [address] [id number] [place] [address] 14 Mar, 2010 [facility] [address] [id number] [place] [address] 13 Mar, 2010 [facility] [address] [id number] [place] [address] 07 Mar, 2010 [facility] [address] [id number] [place] [address] 02 Mar, 2010 [facility] [address] [id number] [place] [address] Mar, [facility] [address] [id number] [place] [address] 30 Feb, 2010 [facility] [address] [id number] [place] [address] Feb, [facility] [address] [id number] [place] [address] 17 Feb, 2010 [facility] [address] [id number] [place] [address] 17 Feb, 2010 [facility] [address] [id number] [place] [address] 16 Feb, 2010 [facility] [address] [id number] [place] [address] 08 Feb, 2010 [facility] [address] [id number] [place] [address] 04 Feb, 2010 [facility] [address] [id number] [place] [address] Feb, [facility] [address] [id number] [place] [address] Jan, [facility] [address] [id number] [place] [address] Jan, [facility] [address] [id number] [place] [address] Jan, [facility] [address] [id number] [place] [address] Jan, [facility] [address] [id number] [place] [address] 29 Mar, 2009 [facility] [address] [id number] [place] [address] 22 Mar, 2009 [facility] [address] [id number] [place] [address] 19 Mar, 2009 [facility] [address] [id number] [place] [address] 19 Mar, 2009 [facility] [address] [id number] [place] [address] 14 Mar, 2009 [facility] [address] [id number] [place] [address] 10 Mar, 2009 [facility] [address] [id number] [place] [address] 18 Feb, 2009 [facility] [address] [id number] [place] [address] Feb, [facility] [address] [id number] [place] [address] Jan, [facility] [address] [id number] [place] [address] Sep, [facility] [address] [id number] [place] [address] May, IMMUNIZATIONS No Known Immunizations SOCIAL HISTORY [...] Surgical History Left ear surgery Hospitalization History [facility] [place]- Spontane ous Pneumothorax Hospitalization History [facility]- Colon resection Hospitalization History [facility] - diarrhea/ couldnt urin ate nov 2017 Hospitalization History pain /hip to foot right side 10/16/19 19
--- OUTSIDE RECORDS SUMMARY | 2019-08-28 08:57 | XMS REPORT ---
Author Author Dixon Lundberg Doctor Organization [facility] Address Unknown Phone Unavailable Care Team Providers Care Optimization Manager Name Role Phone Migration, Doctor Unavailable Unavailable PROBLEMS Type Condition ICD9-CM Code XEV43-OT Code Onset Dates Condition S tatus SNOMED Code Problem HTN (hypertension) I10 Active 3 2720471 Problem Insomnia G47.00 Active 526240449 Problem Constipation K59.00 Active 6473378 8 Problem Anxiety F41.9 Active 84812875 Problem Hyperlipidemia E78.5 Active 91515 004 Problem Chronic pain G89.29 Active 4547401 1 Problem Environmental allergies Z91.09 Active 521904061 Problem Primary insomnia F51.01 Active 397 2004 Problem Chronic kidney disease, stage III (moderate) N18.3 Active 250661026 Problem Psychophysiological insomnia F51.04 A ctive 222977678 Problem Vitamin D deficiency E55.9 Active 44194913 Problem Age-related cataract of both eyes, unspecified age-related cataract type H25.9 Active 15264113 Problem Thoracic back pain, unspecif ied back pain laterality, unspecified chronicity M54.6 Active 969339235 Problem Vision loss H54.7 Active 22420244 1 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 87592830 Problem Schizophrenia, unspecified type F20.9 Active 86332496 Problem Psychophysiological insomnia F51.04 A ctive 643798486 ALLERGIES No Information ENCOUNTERS Encounter Location Date Diagnosis [place] [id number] [place] [address] 13 May, 2019 Other constipation K59.09 [place] [address] [address] 11 May, 2019 Thoracic back pain, unspecified back hao n laterality, unspecified chronicity M54.6 [place] [address] [address] 06 May, 2019 Anxiety F41.9 and Thoracic back pain, un specified back pain laterality, unspecified chronicity M54.6 [place] [address] [address] May, [place] [address] [address] Apr, [facility] [address] [address] Apr, [place] [address] [address] Apr, Psychophysiological insomnia F51.04 [place] [address] [address] Apr, Thoracic back pain, unspecified back hao n laterality, unspecified chronicity M54.6 [place] [address] [address] Apr, Thoracic back pain, unspecified back hao n laterality, unspecified chronicity M54.6 [place] [address] [address] Apr, Anxiety F41.9 [place] [address] [address] Apr, Psychophysiological insomnia F51.04 [place] [address] [address] Mar, Encounter for Medicare annual wellness e [...] both eyes, unspecified age-related cataract type H25.9 [place] [address] [address] Mar, Thoracic back pain, unspecified back hao n laterality, unspecified chronicity M54.6 [facility] [address] [address] Mar, Psychophysiological insomnia F51.04 [facility] [address] [address] Mar, Thoracic back pain, unspecified back hao n laterality, unspecified chronicity M54.6 and Anxiety F41.9 [place] [address] [address] Mar, Psychophysiological insomnia F51.04 [place] [address] [address] Mar, [place] [address] [address] Mar, Psychophysiological insomnia F51.04 [place] [address] [address] Mar, [facility] [address] [address] Feb, [place] [address] [address] Feb, Thoracic back pain, unspecified back hao n laterality, unspecified chronicity M54.6 [place] [address] [address] Feb, Anxiety F41.9 and Thoracic back pain, un specified back pain laterality, unspecified chronicity M54.6 [place] [address] [address] Feb, Insomnia G47.00 ; HTN (hypertension) I10 and Constipation K59.00 [place] [address] [address] Feb, [facility] [address] [address] Jan, Thoracic back pain, unspecified back hao n laterality, unspecified chronicity M54.6 [facility] [address] [address] Jan, Anxiety F41.9 [facility] [address] [address] Jan, Anxiety F41.9 [facility] [address] [address] Jan, Anxiety F41.9 and Thoracic back pain, un specified back pain laterality, unspecified chronicity M54.6 [facility] [address] [address] Jan, [facility] [address] [address] Jan, [facility] [address] [address] Dec, Thoracic back pain, unspecified back hao n laterality, unspecified chronicity M54.6 [facility] [address] [address] Dec, Thoracic back pain, unspecified back hao n laterality, unspecified chronicity M54.6 [facility] [address] [address] Nov, Thoracic back pain, unspecified back hao n laterality, unspecified chronicity M54.6 [facility] [address] [address] Nov, Anxiety F41.9 and Thoracic back pain, un specified back pain laterality, unspecified chronicity M54.6 [facility] [address] [address] Nov, [facility] [address] [address] Nov, [facility] [address] [address] Nov, [facility] [address] [address] Oct, Thoracic back pain, unspecified back hao n laterality, unspecified chronicity M54.6 [facility] [address] [address] Oct, Anxiety F41.9 and Thoracic back pain, un specified back pain laterality, unspecified chronicity M54.6 [facility] [address] [address] Oct, Schizophrenia, unspecified type F20.9 an d Acute kidney injury N17.9 [facility] [address] [address] Oct, [facility] [address] [address] Oct, [facility] [address] [address] Oct, Thoracic back pain, unspecified back hao n laterality, unspecified chronicity M54.6 [facility] [address] [address] Oct, [facility] [address] [address] Oct, [facility] [address] [address] Sep, Anxiety F41.9 [facility] [address] [address] Sep, [facility] [address] [address] Sep, Thoracic back pain, unspecified back hao n laterality, unspecified chronicity M54.6 [facility] [address] [address] Sep, [facility] [address] [address] Sep, [facility] [address] [address] Sep, [facility] [address] [address] Sep, [facility] [address] [address] Sep, [facility] [address] [address] Sep, [facility] [address] [address] Sep, Chronic pain G89.29 ; Chronic kidney dis ease, stage III (moderate) N18.3 ; Hyperlipidemia E78.5 and Insomnia G47.00 [place] [address] [address] Sep, Thoracic back pain, unspecified back hao n laterality, unspecified chronicity M54.6 [place] [address] [address] August, Anxiety F41.9 [place] [address] [address] August, Thoracic back pain, unspecified back hao n laterality, unspecified chronicity M54.6 and Anxiety F41.9 [place] [address] [address] August, 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 [place] [address] [address] August, 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 [facility] [address] [address] August, [facility] [address] [address] August, [facility] [address] [address] August, Thoracic back pain, unspecified back hao n laterality, unspecified chronicity M54.6 [facility] [address] [address] August, [facility] [address] [address] August, Anxiety F41.9 and Thoracic back pain, un specified back pain laterality, unspecified chronicity M54.6 [place] [address] [address] Jul, [place] [address] [address] Jul, Thoracic back pain, unspecified back hao n laterality, unspecified chronicity M54.6 [place] [address] [address] Jun, Anxiety F41.9 and Thoracic back pain, un specified back pain laterality, unspecified chronicity M54.6 [place] [address] [address] Jun, Anxiety F41.9 and Thoracic back pain, un specified back pain laterality, unspecified chronicity M54.6 [place] [address] [address] Jun, Thoracic back pain, unspecified back hao n laterality, unspecified chronicity M54.6 [place] [address] [address] Jun, Anxiety F41.9 and Thoracic back pain, un specified back pain laterality, unspecified chronicity M54.6 [place] [address] [address] May, [place] [address] [address] May, [place] [address] [address] May, [place] [address] [address] May, Anxiety F41.9 and Encounter for medicati on monitoring Z51.81 [place] [address] [address] 05 May, 2018 Anxiety F41.9 and Thoracic back pain, un specified back pain laterality, unspecified chronicity M54.6 [place] [address] [id number] Apr, Hyperlipidemia 272.4 [place] [address] [address] Apr, Chronic pain G89.29 ; Anxiety F41.9 ; Ce rvical radiculopathy M54.12 and Vision loss H54.7 [place] [address] [address] Apr, [place] [address] [address] Apr, Anxiety F41.9 and Thoracic back pain, un specified back pain laterality, unspecified chronicity M54.6 [place] [address] [address] Mar, [place] [address] [address] Mar, Anxiety F41.9 and Thoracic back pain, un specified back pain laterality, unspecified chronicity M54.6 [place] [address] [address] 14 Feb, 2018 Anxiety F41.9 and Thoracic back pain, un specified back pain laterality, unspecified chronicity M54.6 [place] [address] [address] Feb, Thoracic back pain, unspecified back hao n laterality, unspecified chronicity M54.6 [place] [address] [address] Jan, [place] [address] [address] Jan, Anxiety F41.9 and Thoracic back pain, un specified back pain laterality, unspecified chronicity M54.6 [place] [address] [address] 19 Dec, 2017 Diarrhea of presumed infectious origin R 19.7 [place] [address] [address] 19 Dec, 2017 Diarrhea of presumed infectious origin R 19.7 [facility] [address] [address] 18 Dec, 2017 Thoracic back pain, unspecified back hao n laterality, unspecified chronicity M54.6 [place] [address] [address] 17 Dec, 2017 [place] [address] [address] Dec, Anxiety F41.9 and Thoracic back pain, un specified back pain laterality, unspecified chronicity M54.6 [place] [address] [address] Dec, Diarrhea of presumed infectious origin R 19.7 [place] [address] [address] Dec, [place] [address] [address] Dec, Anxiety F41.9 and Thoracic back pain, un specified back pain laterality, unspecified chronicity M54.6 [place] [address] [address] Dec, Anxiety F41.9 and Thoracic back pain, un specified back pain laterality, unspecified chronicity M54.6 [facility] [address] [place] [id number] Dec, Diarrhea of presumed infectious origin R 19.7 ; Anxiety F41.9 ; Thoracic back pain, unspecified back pain laterality, unspecified chronicity M54.6 and HTN (hypertension) I10 [place] [address] [address] 05 Dec, 2017 Anxiety F41.9 [facility] [address] [place], [place] [id number] Dec, Anxiety F41.9 ; Diarrhea of presumed inf ectious origin R19.7 ; Generalized abdominal pain R10.84 and Localized edema R60.0 [place] [address] [address] Nov, [facility] [address] [place] [id number] Nov, Anxiety F41.9 ; Urinary retention R33.9 ; Diarrhea of presumed infectious origin R19.7 ; Weakness R53.1 ; Acute kidney failure, unspecified N17.9 ; Chronic kidney disease, stage III (moderate) N18.3 and Thoracic back pain, unspecified back pain laterality, unspecified chronicity M54.[address] [address] Oct, Thoracic back pain, unspecified back hao n laterality, unspecified chronicity M54.6 and Anxiety F41.[address] [address] Sep, Thoracic back pain, unspecified back hao n laterality, unspecified chronicity M54.6 and Anxiety F41.[address] [address] Sep, Thoracic back pain, unspecified back hao n laterality, unspecified chronicity M54.6 ; Anxiety F41.9 and Encounter for medication monitoring Z51.[address] [address] August, [address] [address] August, Thoracic back pain, unspecified back hao n laterality, unspecified chronicity M54.6 and Anxiety F41.[address] [address] August, Hyperlipidemia E78.5 and HTN (hypertensi on) I10 [address] [address] August, [place] [address] [address] August, Medicare welcome exam Z00.00 ; Chronic k idney failure N18.9 ; Anxiety F41.9 ; Chronic pain G89.29 ; Insomnia G47.00 ; Hyperlipidemia E78.5 ; HTN (hypertension) I10 and Thoracic back pain, unspecified back pain laterality, unspecified chronicity M54.6 [place] [address] [address] Jul, [place] [address] [address] Jul, [place] [address] [address] Jul, [place] [address] [address] Jul, Anxiety F41.9 [place] [address] [address] Jul, Thoracic back pain, unspecified back hao n laterality, unspecified chronicity M54.6 and Anxiety F41.9 [place] [address] [address] Jun, Thoracic back pain, unspecified back hao n laterality, unspecified chronicity M54.6 and Anxiety F41.9 [place] [address] [address] May, Thoracic back pain, unspecified back hao n laterality, unspecified chronicity M54.6 and Anxiety F41.9 [place] [address] [address] Apr, Thoracic back pain, unspecified back hao n laterality, unspecified chronicity M54.6 and Anxiety F41.9 [place] [address] [address] Mar, [place] [address] [address] Mar, Thoracic back pain, unspecified back hao n laterality, unspecified chronicity M54.6 and Anxiety F41.9 [place] [address] [address] Mar, Thoracic back pain, unspecified back hao n laterality, unspecified chronicity M54.6 ; HTN (hypertension) I10 ; Hyperlipidemia E78.5 and Anxiety F41.9 [place] [address] [address] Feb, Thoracic back pain, unspecified back hao n laterality, unspecified chronicity M54.6 and Anxiety F41.9 [place] [address] [address] Nov, [place] [address] [address] Oct, [place] [address] [address] Oct, Thoracic back pain, unspecified back hao n laterality, unspecified chronicity M54.6 [place] [address] [address] Oct, HTN (hypertension) I10 ; Constipation K5 9.00 ; Hyperlipidemia E78.5 ; Thoracic back pain, unspecified back pain laterality, unspecified chronicity M54.6 ; Chronic pain G89.29 ; Anxiety F41.9 ; Chronic kidney failure N18.9 ; Environmental allergies Z91.09 ; Vitamin D deficiency E55.9 and Primary insomnia F51.01 [place] [address] [address] Sep, Anxiety F41.9 [place] [address] [address] Sep, [place] [address] [address] August, Anxiety F41.9 [place] [address] [address] August, [facility] [address] [address] Jul, Anxiety F41.9 [facility] [address] [address] Jul, [facility] [address] [address] Jun, Anxiety F41.9 [facility] [address] [address] Jun, [facility] [address] [address] May, [facility] [address] [address] May, [facility] [address] [address] May, [facility] [address] [address] Apr, [facility] [address] [address] Apr, [facility] [address] [address] Apr, Anxiety F41.9 [facility] [address] [address] Apr, Anxiety F41.9 [facility] [address] [address] Apr, [facility] [address] [address] Mar, HTN (hypertension) I10 ; Tremor R25.1 ; Hypercholesterolemia E78.0 ; Constipation K59.00 ; Chronic pain G89.29 ; Hyperlipidemia E78.5 ; Insomnia G47.00 ; Anxiety F41.9 and Thoracic back pain, unspecified back pain laterality, unspecified chronicity M54.6 [facility] [address] [address] Mar, Tremor R25.1 ; HTN (hypertension) I10 ; Hypercholesterolemia E78.0 ; Constipation K59.00 ; Chronic pain G89.29 ; Hyperlipidemia E78.5 ; Insomnia G47.00 ; Anxiety F41.9 and Thoracic back pain, unspecified back pain laterality, unspecified chronicity M54.6 [facility] [address] [address] Mar, [facility] [address] [address] Mar, [facility] [address] [address] Feb, [facility] [address] [address] Jan, [facility] [address] [address] Jan, [facility] [address] [address] Dec, [facility] [address] [address] Nov, [facility] [address] [address] Nov, [facility] [address] [address] Oct, Anxiety F41.9 [facility] [address] [address] Oct, Chronic pain G89.29 [facility] [address] [address] Sep, [facility] [address] [address] Sep, [facility] [address] [address] Sep, [facility] [address] [address] Sep, [facility] [address] [address] Sep, Chronic pain syndrome G89.4 [facility] [address] [address] Sep, HTN (hypertension) I10 ; Chronic pain G8 9.29 ; Hypercholesterolemia E78.0 ; Chronic kidney failure N18.9 ; Constipation, unspecified constipation type K59.00 ; Anxiety F41.9 and Thoracic back pain, unspecified back pain laterality, unspecified chronicity M54.6 [place] [address] [address] August, Chronic pain syndrome G89.4 [place] [address] [address] August, Chronic pain syndrome G89.4 [place] [address] [address] Jul, Anxiety disorder, unspecified F41.9 and Chronic pain syndrome G89.4 [place] [address] [address] Jul, Insomnia, unspecified G47.00 and Chronic pain syndrome G89.4 [place] [address] [address] Jul, Allergic rhinitis J30.9 [place] [address] [address] Jul, Constipation, unspecified K59.00 [place] [address] [address] Jul, [place] [address] [address] Jun, [place] [address] [address] Jun, [facility] [address] [address] Jun, [facility] [address] [id number] [place] [address] Jun, [facility] [id number] [place] [address] Jun, [facility] [address] [id number] [place] [address] Jun, [facility] [address] [address] May, [facility] [id number] [place] [address] May, [facility] [address] [address] May, Anxiety F41.9 ; Insomnia G47.00 ; Hyperl ipidemia E78.5 ; Chronic pain G89.29 ; HTN (hypertension) I10 ; Environmental allergies V15.09 and Constipation 564.00 [facility] [id number] [place] [address] Apr, [facility] [address] [address] Apr, [facility] [address] [address] Apr, [facility] [address] [address] Mar, [facility] [id number] [place] [address] Mar, [facility] [address] [address] Mar, [facility] [address] [address] Feb, [facility] [address] [address] Feb, [facility] [address] [address] Feb, [facility] [address] [address] Jan, HTN (hypertension) I10 ; Constipation K5 9.00 ; Chronic pain G89.29 ; Hyperlipidemia E78.5 ; Hypercholesterolemia E78.0 ; Insomnia G47.00 and Anxiety F41.9 [place] [address] [address] Jan, [place] [address] [address] Dec, [place] [address] [address] Nov, [place] [address] [address] Oct, Chronic kidney disease, unspecified 585. 9 ; Chronic pain syndrome 338.4 ; Hyperlipidemia 272.4 and Essential hypertension 401.[address] [address] Oct, Chronic kidney disease 585.9 [place] [address] [address] Oct, [place] [address] [address] Oct, Chronic kidney disease, unspecified 585. 9 ; Hypercalcemia 275.42 ; Hyperlipidemia 272.4 ; Essential hypertension 401.9 ; Chronic pain syndrome 338.4 ; Insomnia 780.52 ; Constipation 564.00 ; Environmental allergies V15.09 and Anxiety 300.00 [place] [address] [address] Oct, Chronic kidney disease 585.9 [place] [address] [address] Oct, [address] [address] Oct, Chronic kidney disease 585.9 and Hyperli pidemia 272.4 [place] [address] [id number] [place] [address] 10 Oct, 2014 [facility] [address] [id number] [place] [address] 10 Oct, 2014 [facility] [address] [id number] [place] [address] 18 Sep, 2014 [facility] [address] [id number] [place] [address] 15 Sep, 2014 [facility] [address] [id number] [place] [address] 15 Sep, 2014 Chronic kidney disease 585.9 and Hyperli pidemia 272.4 [facility] [address] [id number] [place] [address] Sep, [facility] [address] [id number] [place] [address] August, [facility] [address] [id number] [place] [address] August, [facility] [address] [id number] [place] [address] 14 Jul, 2014 [facility] [address] [id number] [place] [address] Jul, [facility] [address] [id number] [place] [address] 20 Jun, 2014 [facility] [address] [id number] [place] [address] 20 Jun, 2014 [facility] [address] [id number] [place] [address] 16 Jun, 2014 [facility] [address] [id number] [place] [address] 16 Jun, 2014 [facility] [address] [id number] [place] [address] Jun, [facility] [address] [id number] [place] [address] Jun, [facility] [address] [id number] [place] [address] Jun, [facility] [address] [facility] [id number] [place] [address] Jun, [facility] [address] [id number] [place] [address] May, [facility] [address] [id number] [place] [address] May, [facility] [address] [id number] [place] [address] May, [facility] [address] [id number] [place] [address] May, [facility] [address] [id number] [place] [address] Apr, [facility] [address] [id number] [place] [address] Apr, [facility] [address] [id number] [place] [address] Apr, [facility] [address] [id number] [place] [address] Apr, [facility] [address] [id number] [place] [address] Apr, [facility] [address] [id number] [place] [address] Apr, [facility] [address] [id number] [place] [address] Apr, [facility] [address] [id number] [place] [address] Apr, [facility] [address] [id number] [place] [address] Apr, [facility] [address] [id number] [place] [address] Apr, [facility] [address] [id number] [place] [address] Apr, [facility] [address] [id number] [place] [address] Mar, [facility] [address] [id number] [place] [address] Mar, [facility] [address] [id number] [place] [address] Feb, [facility] [address] [id number] [place] [address] Feb, [facility] [address] [id number] [place] [address] Feb, [facility] [address] [id number] [place] [address] Feb, [facility] [address] [id number] [place] [address] Feb, [facility] [address] [id number] [place] [address] Feb, [facility] [address] [id number] [place] [address] Feb, [facility] [address] [id number] [place] [address] Feb, [facility] [address] [id number] [place] [address] Feb, [facility] [address] [id number] [place] [address] Feb, [facility] [address] [id number] [place] [address] Jan, [facility] [address] [id number] [place] [address] Jan, [facility] [address] [id number] [place] [address] Jan, [facility] [address] [id number] [place] [address] Jan, [facility] [address] [id number] [place] [address] Jan, [facility] [address] [facility] [id number] [place] [address] 24 Jan, 2014 [facility] [address] [facility] [id number] [place] [address] Jan, [facility] [address] [id number] [place] [address] Jan, [facility] [address] [id number] [place] [address] 16 Jan, 2014 [facility] [address] [facility] [id number] [place] [address] Jan, [facility] [address] [id number] [place] [address] Jan, [facility] [address] [id number] [place] [address] Dec, 2013 [facility] [address] [id number] [place] [address] 26 Dec, 2013 [facility] [address] [id number] [place] [address] 19 Dec, 2013 [facility] [address] [id number] [place] [address] 19 Dec, 2013 [facility] [address] [id number] [place] [address] 18 Dec, 2013 [facility] [address] [id number] [place] [address] 18 Dec, 2013 [facility] [address] [id number] [place] [address] Dec, 2013 [facility] [address] [id number] [place] [address] Dec, 2013 [facility] [address] [id number] [place] [address] Nov, [facility] [address] [id number] [place] [address] Nov, [facility] [address] [facility] [id number] [place] [address] Nov, [facility] [address] [facility] [id number] [place] [address] Nov, [facility] [address] [facility] [id number] [place] [address] Nov, [facility] [address] [id number] [place] [address] Nov, [facility] [address] [facility] [id number] [place] [address] Nov, [facility] [address] [facility] [id number] [place] [address] Nov, [facility] [address] [id number] [place] [address] Oct, [facility] [address] [id number] [place] [address] Oct, [facility] [address] [id number] [place] [address] Oct, [facility] [address] [id number] [place] [address] Oct, [facility] [address] [id number] [place] [address] Sep, [facility] [address] [id number] [place] [address] Sep, [facility] [address] [id number] [place] [address] Sep, [facility] [address] [facility] [id number] [place] [address] Sep, [facility] [address] [id number] [place] [address] Sep, [facility] [address] [id number] [place] [address] Sep, [facility] [address] [id number] [place] [address] Sep, [facility] [address] [id number] [place] [address] Sep, [facility] [address] [id number] [place] [address] August, [facility] [address] [id number] [place] [address] August, [facility] [address] [id number] [place] [address] August, [facility] [address] [facility] [id number] [place] [address] August, [facility] [address] [id number] [place] [address] August, [facility] [address] [id number] [place] [address] August, [facility] [address] [id number] [place] [address] August, [facility] [address] [id number] [place] [address] August, [facility] [address] [id number] [place] [address] August, [facility] [address] [id number] [place] [address] August, [facility] [address] [id number] [place] [address] Jul, [facility] [address] [id number] [place] [address] Jul, [facility] [address] [id number] [place] [address] Jul, [facility] [address] [id number] [place] [address] Jul, [facility] [address] [id number] [place] [address] Jul, [facility] [address] [id number] [place] [address] 18 Jul, 2013 [facility] [address] [facility] [id number] [facility] [address] Jul, [facility] [address] [facility] [id number] [place] [address] Jul, [facility] [address] [id number] [place] [address] Jun, [facility] [address] [facility] [id number] [facility] [address] Jun, [facility] [address] [facility] [id number] [facility] [place] [address] Jun, [facility] [address] [id number] [place] [address] Jun, [facility] [address] [id number] [place] [address] Jun, [facility] [address] [id number] [place] [address] Jun, [facility] [address] [facility] [id number] [facility] [address] May, [facility] [address] [id number] [place] [address] May, [facility] [address] [id number] [place] [address] May, [facility] [address] [id number] [place] [address] May, [facility] [address] [facility] [id number] [place] [address] May, [facility] [address] [id number] [place] [address] May, [facility] [address] [id number] [place] [address] May, [facility] [address] [id number] [place] [address] Apr, [facility] [address] [id number] [place] [address] Apr, [facility] [address] [id number] [place] [address] Apr, [facility] [address] [id number] [place] [address] 14 Apr, 2013 [facility] [address] [id number] [place] [address] Apr, [facility] [address] [id number] [place] [address] Apr, [facility] [address] [id number] [place] [address] Mar, [facility] [address] [id number] [place] [address] Mar, [facility] [address] [id number] [place] [address] Mar, [facility] [address] [id number] [place] [address] Mar, [facility] [address] [id number] [place] [address] Mar, [facility] [address] [id number] [place] [address] Mar, [facility] [address] [id number] [place] [address] 16 Mar, 2013 [facility] [address] [id number] [place] [address] 16 Mar, 2013 [facility] [address] [id number] [place] [address] Mar, [facility] [address] [id number] [place] [address] Mar, [facility] [address] [id number] [place] [address] Feb, [facility] [address] [id number] [place] [address] Feb, [facility] [address] [id number] [place] [address] Feb, [facility] [address] [id number] [place] [address] Feb, [facility] [address] [id number] [place] [address] Feb, [facility] [address] [id number] [place] [address] Feb, [facility] [address] [id number] [place] [address] Feb, [facility] [address] [id number] [place] [address] Feb, [facility] [address] [id number] [place] [address] Feb, [facility] [address] [id number] [place] [address] Feb, [facility] [address] [id number] [place] [address] Jan, [facility] [address] [id number] [place] [address] Jan, [facility] [address] [id number] [place] [address] Jan, [facility] [address] [id number] [place] [address] Jan, [facility] [address] [id number] [place] [address] Jan, [facility] [address] [id number] [place] [address] Jan, [facility] [address] [id number] [place] [address] 17 Jan, 2013 [facility] [address] [id number] [place] [address] Jan, [facility] [address] [id number] [place] [address] Jan, [facility] [address] [id number] [place] [address] Dec, [facility] [address] [facility] [id number] [place] [address] Dec, [facility] [address] [id number] [place] [address] Dec, [facility] [address] [id number] [place] [address] Dec, [facility] [address] [id number] [place] [address] Nov, [facility] [address] [id number] [place] [address] Nov, [facility] [address] [id number] [place] [address] Nov, [facility] [address] [id number] [place] [address] Nov, [facility] [address] [id number] [place] [address] Nov, [facility] [address] [id number] [place] [address] Nov, [facility] [address] [id number] [place] [address] Oct, [facility] [address] [id number] [place] [address] Oct, [facility] [address] [facility] [id number] [place] [address] Oct, [facility] [address] [id number] [place] [address] Oct, [facility] [address] [id number] [place] [address] Sep, [facility] [address] [id number] [place] [address] Sep, [facility] [address] [id number] [place] [address] 17 Sep, 2012 [facility] [address] [id number] [place] [address] 14 Sep, 2012 [facility] [address] [id number] [place] [address] 10 Sep, 2012 [facility] [address] [id number] [place] [address] August, [facility] [address] [id number] [place] [address] 2012 [facility] [address] [id number] [place] [address] Jul, [facility] [address] [id number] [place] [address] Jul, [facility] [address] [id number] [place] [address] 15 Jul, 2012 [facility] [address] [id number] [place] [address] Jul, [facility] [address] [id number] [place] [address] 08 Jul, 2012 [facility] [address] [id number] [place] [address] Jun, [facility] [address] [id number] [place] [address] Jun, [facility] [address] [id number] [place] [address] 15 Jun, 2012 [facility] [address] [id number] [place] [address] 06 Jun, 2012 [facility] [address] [id number] [place] [address] Jun, [facility] [address] [id number] [place] [address] May, [facility] [address] [id number] [place] [address] May, [facility] [address] [id number] [place] [address] May, [facility] [address] [id number] [place] [address] May, [facility] [address] [id number] [place] [address] May, [facility] [address] [id number] [place] [address] May, [facility] [address] [id number] [place] [address] May, [facility] [address] [id number] [place] [address] May, [facility] [address] [id number] [place] [address] May, [facility] [address] [id number] [place] [address] Apr, [facility] [address] [id number] [place] [address] Apr, [facility] [address] [id number] [place] [address] Apr, [facility] [address] [id number] [place] [address] Apr, [facility] [address] [id number] [place] [address] Apr, [facility] [address] [id number] [place] [address] Mar, [facility] [address] [id number] [place] [address] Mar, [facility] [address] [id number] [place] [address] Mar, [facility] [address] [id number] [place] [address] Mar, [facility] [address] [id number] [place] [address] Mar, [facility] [address] [id number] [place] [address] Mar, [facility] [address] [id number] [place] [address] Mar, [facility] [address] [id number] [place] [address] Mar, [facility] [address] [id number] [place] [address] Mar, [facility] [address] [id number] [place] [address] Mar, [facility] [address] [id number] [place] [address] 30 Feb, 2012 [facility] [address] [id number] [place] [address] 30 Feb, 2012 [facility] [address] [id number] [place] [address] Feb, [facility] [address] [id number] [place] [address] 29 Feb, 2012 [facility] [address] [id number] [place] [address] Feb, [facility] [address] [id number] [place] [address] Feb, [facility] [address] [id number] [place] [address] Feb, [facility] [address] [id number] [place] [address] Feb, [facility] [address] [id number] [place] [address] 16 Feb, 2012 [facility] [address] [id number] [place] [address] 16 Feb, 2012 [facility] [address] [id number] [place] [address] Feb, [facility] [address] [id number] [place] [address] Feb, [facility] [address] [id number] [place] [address] Feb, [facility] [address] [id number] [place] [address] Feb, [facility] [address] [id number] [place] [address] Feb, [facility] [address] [id number] [place] [address] Feb, [facility] [address] [id number] [place] [address] Feb, [facility] [address] [id number] [place] [address] Feb, [facility] [address] [id number] [place] [address] Jan, [facility] [address] [id number] [place] [address] Jan, [facility] [address] [id number] [place] [address] Jan, [facility] [address] [id number] [place] [address] Jan, [facility] [address] [id number] [place] [address] Jan, [facility] [address] [id number] [place] [address] Jan, [facility] [address] [id number] [place] [address] Jan, [facility] [address] [id number] [place] [address] Jan, [facility] [address] [id number] [place] [address] Jan, [facility] [address] [id number] [place] [address] Jan, [facility] [address] [id number] [place] [address] Dec, [facility] [address] [id number] [place] [address] Dec, [facility] [address] [id number] [place] [address] Dec, [facility] [address] [id number] [place] [address] Dec, [facility] [address] [id number] [place] [address] Nov, [facility] [address] [id number] [place] [address] Nov, [facility] [address] [id number] [place] [address] Nov, [facility] [address] [id number] [place] [address] Nov, [facility] [address] [id number] [place] [address] Nov, [facility] [address] [id number] [place] [address] Nov, [facility] [address] [id number] [place] [address] Oct, [facility] [address] [id number] [place] [address] Oct, [facility] [address] [id number] [place] [address] Oct, [facility] [address] [id number] [place] [address] Oct, [facility] [address] [id number] [place] [address] Oct, [facility] [address] [id number] [place] [address] Sep, [facility] [address] [id number] [place] [address] Sep, [facility] [address] [id number] [place] [address] Sep, [facility] [address] [id number] [place] [address] Sep, [facility] [address] [id number] [place] [address] Sep, [facility] [address] [id number] [place] [address] August, [facility] [address] [id number] [place] [address] August, [facility] [address] [id number] [place] [address] August, [facility] [address] [id number] [place] [address] August, [facility] [address] [id number] [place] [address] Jul, [facility] [address] [id number] [place] [address] 24 Jul, 2011 [facility] [address] [id number] [place] [address] Jul, [facility] [address] [id number] [place] [address] 18 Jul, 2011 [facility] [address] [id number] [place] [address] 18 Jul, 2011 [facility] [address] [id number] [place] [address] 12 Jul, 2011 [facility] [address] [id number] [place] [address] 11 Jul, 2011 [facility] [address] [id number] [place] [address] 10 Jul, 2011 [facility] [address] [id number] [place] [address] Jul, [facility] [address] [id number] [facility] [place] [address] Jul, [facility] [address] [id number] [facility] [place] [address] Jul, [facility] [address] [id number] [facility] [place] [address] Jul, [facility] [address] [id number] [facility] [place] [address] Jul, [facility] [address] [id number] [facility] [place] [address] Jul, [facility] [address] [id number] [place] [address] Jun, [facility] [address] [id number] [place] [address] Jun, [facility] [address] [id number] [place] [address] Jun, [facility] [address] [id number] [place] [address] Jun, [facility] [address] [id number] [place] [address] May, [facility] [address] [id number] [place] [address] 16 May, 2011 [facility] [address] [id number] [place] [address] May, [facility] [address] [id number] [place] [address] Apr, [facility] [address] [id number] [place] [address] 18 Apr, 2011 [facility] [address] [id number] [place] [address] Apr, [facility] [address] [id number] [place] [address] Apr, [facility] [address] [id number] [place] [address] 09 Apr, 2011 [facility] [address] [id number] [place] [address] Mar, [facility] [address] [id number] [place] [address] Mar, [facility] [address] [id number] [place] [address] Mar, [facility] [address] [id number] [place] [address] Mar, [facility] [address] [id number] [place] [address] Mar, [facility] [address] [id number] [place] [address] Mar, [facility] [address] [id number] [place] [address] Mar, [facility] [address] [id number] [place] [address] Feb, [facility] [address] [id number] [place] [address] Feb, [facility] [address] [id number] [place] [address] Feb, [facility] [address] [id number] [place] [address] Feb, [facility] [address] [id number] [place] [address] 16 Feb, 2011 [facility] [address] [id number] [place] [address] 14 Feb, 2011 [facility] [id number] [place] [address] Feb, [facility] [address] [id number] [place] [address] Jan, [facility] [address] [id number] [place] [address] Jan, [facility] [address] [id number] [place] [address] 31 Jan, 2011 [facility] [address] [id number] [place] [address] 18 Jan, 2011 [facility] [address] [id number] [place] [address] 17 Jan, 2011 [facility] [address] [id number] [place] [address] 17 Jan, 2011 [facility] [address] [id number] [place] [address] Jun, [facility] [address] [id number] [place] [address] 30 Mar, 2010 [facility] [address] [id number] [place] [address] 20 Mar, 2010 [facility] [address] [id number] [place] [address] 14 Mar, 2010 [facility] [address] [id number] [place] [address] 14 Mar, 2010 [facility] [address] [id number] [place] [address] 13 Mar, 2010 [facility] [address] [id number] [place] [address] 07 Mar, 2010 [facility] [address] [id number] [place] [address] 02 Mar, 2010 [facility] [address] [id number] [place] [address] Mar, [facility] [address] [id number] [place] [address] 30 Feb, 2010 [facility] [address] [id number] [place] [address] 29 Feb, 2010 [facility] [address] [id number] [place] [address] 17 Feb, 2010 [facility] [address] [id number] [place] [address] 17 Feb, 2010 [facility] [address] [facility] [id number] [place] [address] 16 Feb, 2010 [facility] [address] [id number] [place] [address] 08 Feb, 2010 [facility] [address] [id number] [place] [address] Feb, [facility] [address] [id number] [place] [address] Feb, [facility] [address] [facility] [id number] [place] [address] Jan, [facility] [address] [id number] [place] [address] Jan, [facility] [address] [id number] [place] [address] Jan, [facility] [address] [id number] [place] [address] Jan, [facility] [address] [id number] [place] [address] 29 Mar, 2009 [facility] [address] [id number] [place] [address] 22 Mar, 2009 [facility] [address] [id number] [place] [address] 19 Mar, 2009 [facility] [address] [id number] [place] [address] 19 Mar, 2009 [facility] [address] [id number] [place] [address] 14 Mar, 2009 [facility] [address] [id number] [place] [address] 10 Mar, 2009 [facility] [address] [id number] [place] [address] 18 Feb, 2009 [facility] [address] [id number] [place] [address] 18 Feb, 2009 [facility] [address] [facility] [id number] [place] [address] Jan, [facility] [address] [facility] [id number] [place] [address] Sep, [facility] [address] [facility] [id number] [place] [address] May, IMMUNIZATIONS No Known Immunizations SOCIAL HISTORY [...] Surgical History Left ear surgery Hospitalization History [facility] in [place]- Spontane ous Pneumothorax Hospitalization History [facility]- Colon resection Hospitalization History [facility] - diarrhea/ couldnt urin ate nov 2017 Hospitalization History pain /hip to foot right side 10/16/19 19
--- OUTSIDE RECORDS SUMMARY | 2019-08-28 08:57 | XMS REPORT ---
Author Author Dixon Lundberg Doctor Organization [facility] Address Unknown Phone Unavailable Care Team Providers Care Cable Splicing Technician Name Role Phone Migration, Doctor Unavailable Unavailable PROBLEMS Type Condition ICD9-CM Code STY21-LQ Code Onset Dates Condition S tatus SNOMED Code Problem HTN (hypertension) I10 Active 3 3559575 Problem Insomnia G47.00 Active 124681312 Problem Constipation K59.00 Active 8162007 8 Problem Anxiety F41.9 Active 79728434 Problem Hyperlipidemia E78.5 Active 10968 004 Problem Chronic pain G89.29 Active 7822754 1 Problem Environmental allergies Z91.09 Active 132378981 Problem Primary insomnia F51.01 Active 397 2004 Problem Chronic kidney disease, stage III (moderate) N18.3 Active 149305553 Problem Psychophysiological insomnia F51.04 A ctive 206376937 Problem Vitamin D deficiency E55.9 Active 71534413 Problem Age-related cataract of both eyes, unspecified age-related cataract type H25.9 Active 88013501 Problem Thoracic back pain, unspecif ied back pain laterality, unspecified chronicity M54.6 Active 593981209 Problem Vision loss H54.7 Active 39979425 1 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 62451802 Problem Schizophrenia, unspecified type F20.9 Active 07413781 Problem Psychophysiological insomnia F51.04 A ctive 512961547 ALLERGIES No Information ENCOUNTERS Encounter Location Date Diagnosis [place] [id number] [place] [address] 13 May, 2019 Other constipation K59.09 [place] [address] [address] 11 May, 2019 Thoracic back pain, unspecified back hao n laterality, unspecified chronicity M54.6 [place] [address] [address] 06 May, 2019 Anxiety F41.9 and Thoracic back pain, un specified back pain laterality, unspecified chronicity M54.6 [place] [address] [address] May, [place] [address] [address] Apr, [facility] [address] [address] Apr, [place] [address] [address] Apr, Psychophysiological insomnia F51.04 [place] [address] [address] Apr, Thoracic back pain, unspecified back hao n laterality, unspecified chronicity M54.6 [place] [address] [address] Apr, Thoracic back pain, unspecified back hao n laterality, unspecified chronicity M54.6 [place] [address] [address] Apr, Anxiety F41.9 [place] [address] [address] Apr, Psychophysiological insomnia F51.04 [place] [address] [address] Mar, Encounter for Medicare annual wellness e [...] both eyes, unspecified age-related cataract type H25.9 [place] [address] [address] Mar, Thoracic back pain, unspecified back hao n laterality, unspecified chronicity M54.6 [facility] [address] [address] Mar, Psychophysiological insomnia F51.04 [facility] [address] [address] Mar, Thoracic back pain, unspecified back hao n laterality, unspecified chronicity M54.6 and Anxiety F41.9 [place] [address] [address] Mar, Psychophysiological insomnia F51.04 [place] [address] [address] Mar, [place] [address] [address] Mar, Psychophysiological insomnia F51.04 [place] [address] [address] Mar, [facility] [address] [address] Feb, [place] [address] [address] Feb, Thoracic back pain, unspecified back hao n laterality, unspecified chronicity M54.6 [place] [address] [address] Feb, Anxiety F41.9 and Thoracic back pain, un specified back pain laterality, unspecified chronicity M54.6 [place] [address] [address] Feb, Insomnia G47.00 ; HTN (hypertension) I10 and Constipation K59.00 [place] [address] [address] Feb, [facility] [address] [address] Jan, Thoracic back pain, unspecified back hao n laterality, unspecified chronicity M54.6 [facility] [address] [address] Jan, Anxiety F41.9 [facility] [address] [address] Jan, Anxiety F41.9 [facility] [address] [address] Jan, Anxiety F41.9 and Thoracic back pain, un specified back pain laterality, unspecified chronicity M54.6 [facility] [address] [address] Jan, [facility] [address] [address] Jan, [facility] [address] [address] Dec, Thoracic back pain, unspecified back hao n laterality, unspecified chronicity M54.6 [facility] [address] [address] Dec, Thoracic back pain, unspecified back hao n laterality, unspecified chronicity M54.6 [facility] [address] [address] Nov, Thoracic back pain, unspecified back hao n laterality, unspecified chronicity M54.6 [facility] [address] [address] Nov, Anxiety F41.9 and Thoracic back pain, un specified back pain laterality, unspecified chronicity M54.6 [facility] [address] [address] Nov, [facility] [address] [address] Nov, [facility] [address] [address] Nov, [facility] [address] [address] Oct, Thoracic back pain, unspecified back hao n laterality, unspecified chronicity M54.6 [facility] [address] [address] Oct, Anxiety F41.9 and Thoracic back pain, un specified back pain laterality, unspecified chronicity M54.6 [facility] [address] [address] Oct, Schizophrenia, unspecified type F20.9 an d Acute kidney injury N17.9 [facility] [address] [address] Oct, [facility] [address] [address] Oct, [facility] [address] [address] Oct, Thoracic back pain, unspecified back hao n laterality, unspecified chronicity M54.6 [facility] [address] [address] Oct, [facility] [address] [address] Oct, [facility] [address] [address] Sep, Anxiety F41.9 [facility] [address] [address] Sep, [facility] [address] [address] Sep, Thoracic back pain, unspecified back hao n laterality, unspecified chronicity M54.6 [facility] [address] [address] Sep, [facility] [address] [address] Sep, [facility] [address] [address] Sep, [facility] [address] [address] Sep, [facility] [address] [address] Sep, [facility] [address] [address] Sep, [facility] [address] [address] Sep, Chronic pain G89.29 ; Chronic kidney dis ease, stage III (moderate) N18.3 ; Hyperlipidemia E78.5 and Insomnia G47.00 [place] [address] [address] Sep, Thoracic back pain, unspecified back hao n laterality, unspecified chronicity M54.6 [place] [address] [address] August, Anxiety F41.9 [place] [address] [address] August, Thoracic back pain, unspecified back hao n laterality, unspecified chronicity M54.6 and Anxiety F41.9 [place] [address] [address] August, 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 [place] [address] [address] August, 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 [facility] [address] [address] August, [facility] [address] [address] August, [facility] [address] [address] August, Thoracic back pain, unspecified back hao n laterality, unspecified chronicity M54.6 [facility] [address] [address] August, [facility] [address] [address] August, Anxiety F41.9 and Thoracic back pain, un specified back pain laterality, unspecified chronicity M54.6 [place] [address] [address] Jul, [place] [address] [address] Jul, Thoracic back pain, unspecified back hao n laterality, unspecified chronicity M54.6 [place] [address] [address] Jun, Anxiety F41.9 and Thoracic back pain, un specified back pain laterality, unspecified chronicity M54.6 [place] [address] [address] Jun, Anxiety F41.9 and Thoracic back pain, un specified back pain laterality, unspecified chronicity M54.6 [place] [address] [address] Jun, Thoracic back pain, unspecified back hao n laterality, unspecified chronicity M54.6 [place] [address] [address] Jun, Anxiety F41.9 and Thoracic back pain, un specified back pain laterality, unspecified chronicity M54.6 [place] [address] [address] May, [place] [address] [address] May, [place] [address] [address] May, [place] [address] [address] May, Anxiety F41.9 and Encounter for medicati on monitoring Z51.81 [place] [address] [address] 05 May, 2018 Anxiety F41.9 and Thoracic back pain, un specified back pain laterality, unspecified chronicity M54.6 [place] [address] [place] [id number] Apr, Hyperlipidemia 272.4 [place] [address] [address] Apr, Chronic pain G89.29 ; Anxiety F41.9 ; Ce rvical radiculopathy M54.12 and Vision loss H54.7 [place] [address] [address] Apr, [place] [address] [address] Apr, Anxiety F41.9 and Thoracic back pain, un specified back pain laterality, unspecified chronicity M54.6 [place] [address] [address] Mar, [place] [address] [address] Mar, Anxiety F41.9 and Thoracic back pain, un specified back pain laterality, unspecified chronicity M54.6 [place] [address] [address] 14 Feb, 2018 Anxiety F41.9 and Thoracic back pain, un specified back pain laterality, unspecified chronicity M54.6 [place] [address] [address] Feb, Thoracic back pain, unspecified back hao n laterality, unspecified chronicity M54.6 [place] [address] [address] Jan, [place] [address] [address] Jan, Anxiety F41.9 and Thoracic back pain, un specified back pain laterality, unspecified chronicity M54.6 [place] [address] [address] 19 Dec, 2017 Diarrhea of presumed infectious origin R 19.7 [place] [address] [address] 19 Dec, 2017 Diarrhea of presumed infectious origin R 19.7 [facility] [address] [address] 18 Dec, 2017 Thoracic back pain, unspecified back hao n laterality, unspecified chronicity M54.6 [place] [address] [address] 17 Dec, 2017 [place] [address] [address] Dec, Anxiety F41.9 and Thoracic back pain, un specified back pain laterality, unspecified chronicity M54.6 [place] [address] [address] Dec, Diarrhea of presumed infectious origin R 19.7 [place] [address] [address] Dec, [place] [address] [address] Dec, Anxiety F41.9 and Thoracic back pain, un specified back pain laterality, unspecified chronicity M54.6 [place] [address] [address] Dec, Anxiety F41.9 and Thoracic back pain, un specified back pain laterality, unspecified chronicity M54.6 [facility] [address] [place] [id number] Dec, Diarrhea of presumed infectious origin R 19.7 ; Anxiety F41.9 ; Thoracic back pain, unspecified back pain laterality, unspecified chronicity M54.6 and HTN (hypertension) I10 [place] [address] [address] 05 Dec, 2017 Anxiety F41.9 [facility] [address] [place], [place] [id number] Dec, Anxiety F41.9 ; Diarrhea of presumed inf ectious origin R19.7 ; Generalized abdominal pain R10.84 and Localized edema R60.0 [place] [address] [address] Nov, [facility] [address] [place] [id number] Nov, Anxiety F41.9 ; Urinary retention R33.9 ; Diarrhea of presumed infectious origin R19.7 ; Weakness R53.1 ; Acute kidney failure, unspecified N17.9 ; Chronic kidney disease, stage III (moderate) N18.3 and Thoracic back pain, unspecified back pain laterality, unspecified chronicity M54.[address] [address] Oct, Thoracic back pain, unspecified back hao n laterality, unspecified chronicity M54.6 and Anxiety F41.[address] [address] Sep, Thoracic back pain, unspecified back hao n laterality, unspecified chronicity M54.6 and Anxiety F41.[address] [address] Sep, Thoracic back pain, unspecified back hao n laterality, unspecified chronicity M54.6 ; Anxiety F41.9 and Encounter for medication monitoring Z51.[address] [address] August, [address] [address] August, Thoracic back pain, unspecified back hao n laterality, unspecified chronicity M54.6 and Anxiety F41.[address] [address] August, Hyperlipidemia E78.5 and HTN (hypertensi on) I10 [address] [address] August, [place] [address] [address] August, Medicare welcome exam Z00.00 ; Chronic k idney failure N18.9 ; Anxiety F41.9 ; Chronic pain G89.29 ; Insomnia G47.00 ; Hyperlipidemia E78.5 ; HTN (hypertension) I10 and Thoracic back pain, unspecified back pain laterality, unspecified chronicity M54.6 [place] [address] [address] Jul, [place] [address] [address] Jul, [place] [address] [address] Jul, [place] [address] [address] Jul, Anxiety F41.9 [place] [address] [address] Jul, Thoracic back pain, unspecified back hao n laterality, unspecified chronicity M54.6 and Anxiety F41.9 [place] [address] [address] Jun, Thoracic back pain, unspecified back hao n laterality, unspecified chronicity M54.6 and Anxiety F41.9 [place] [address] [address] May, Thoracic back pain, unspecified back hao n laterality, unspecified chronicity M54.6 and Anxiety F41.9 [place] [address] [address] Apr, Thoracic back pain, unspecified back hao n laterality, unspecified chronicity M54.6 and Anxiety F41.9 [place] [address] [address] Mar, [place] [address] [address] Mar, Thoracic back pain, unspecified back hao n laterality, unspecified chronicity M54.6 and Anxiety F41.9 [place] [address] [address] Mar, Thoracic back pain, unspecified back hao n laterality, unspecified chronicity M54.6 ; HTN (hypertension) I10 ; Hyperlipidemia E78.5 and Anxiety F41.9 [place] [address] [address] Feb, Thoracic back pain, unspecified back hao n laterality, unspecified chronicity M54.6 and Anxiety F41.9 [place] [address] [address] Nov, [place] [address] [address] Oct, [place] [address] [address] Oct, Thoracic back pain, unspecified back hao n laterality, unspecified chronicity M54.6 [place] [address] [address] Oct, HTN (hypertension) I10 ; Constipation K5 9.00 ; Hyperlipidemia E78.5 ; Thoracic back pain, unspecified back pain laterality, unspecified chronicity M54.6 ; Chronic pain G89.29 ; Anxiety F41.9 ; Chronic kidney failure N18.9 ; Environmental allergies Z91.09 ; Vitamin D deficiency E55.9 and Primary insomnia F51.01 [place] [address] [address] Sep, Anxiety F41.9 [place] [address] [address] Sep, [place] [address] [address] August, Anxiety F41.9 [place] [address] [address] August, [facility] [address] [address] Jul, Anxiety F41.9 [facility] [address] [address] Jul, [facility] [address] [address] Jun, Anxiety F41.9 [facility] [address] [address] Jun, [facility] [address] [address] May, [facility] [address] [address] May, [facility] [address] [address] May, [facility] [address] [address] Apr, [facility] [address] [address] Apr, [facility] [address] [address] Apr, Anxiety F41.9 [facility] [address] [address] Apr, Anxiety F41.9 [facility] [address] [address] Apr, [facility] [address] [address] Mar, HTN (hypertension) I10 ; Tremor R25.1 ; Hypercholesterolemia E78.0 ; Constipation K59.00 ; Chronic pain G89.29 ; Hyperlipidemia E78.5 ; Insomnia G47.00 ; Anxiety F41.9 and Thoracic back pain, unspecified back pain laterality, unspecified chronicity M54.6 [facility] [address] [address] Mar, Tremor R25.1 ; HTN (hypertension) I10 ; Hypercholesterolemia E78.0 ; Constipation K59.00 ; Chronic pain G89.29 ; Hyperlipidemia E78.5 ; Insomnia G47.00 ; Anxiety F41.9 and Thoracic back pain, unspecified back pain laterality, unspecified chronicity M54.6 [facility] [address] [address] Mar, [facility] [address] [address] Mar, [facility] [address] [address] Feb, [facility] [address] [address] Jan, [facility] [address] [address] Jan, [facility] [address] [address] Dec, [facility] [address] [address] Nov, [facility] [address] [address] Nov, [facility] [address] [address] Oct, Anxiety F41.9 [facility] [address] [address] Oct, Chronic pain G89.29 [facility] [address] [address] Sep, [facility] [address] [address] Sep, [facility] [address] [address] Sep, [facility] [address] [address] Sep, [facility] [address] [address] Sep, Chronic pain syndrome G89.4 [facility] [address] [address] Sep, HTN (hypertension) I10 ; Chronic pain G8 9.29 ; Hypercholesterolemia E78.0 ; Chronic kidney failure N18.9 ; Constipation, unspecified constipation type K59.00 ; Anxiety F41.9 and Thoracic back pain, unspecified back pain laterality, unspecified chronicity M54.6 [place] [address] [address] August, Chronic pain syndrome G89.4 [place] [address] [address] August, Chronic pain syndrome G89.4 [place] [address] [address] Jul, Anxiety disorder, unspecified F41.9 and Chronic pain syndrome G89.4 [place] [address] [address] Jul, Insomnia, unspecified G47.00 and Chronic pain syndrome G89.4 [place] [address] [address] Jul, Allergic rhinitis J30.9 [place] [address] [address] Jul, Constipation, unspecified K59.00 [place] [address] [address] Jul, [place] [address] [address] Jun, [place] [address] [address] Jun, [facility] [address] [address] Jun, [facility] [id number] [place] [address] Jun, [facility] [id number] [place] [address] Jun, [facility] [id number] [place] [address] Jun, [facility] [address] [address] May, [facility] [id number] [place] [address] May, [facility] [address] [address] May, Anxiety F41.9 ; Insomnia G47.00 ; Hyperl ipidemia E78.5 ; Chronic pain G89.29 ; HTN (hypertension) I10 ; Environmental allergies V15.09 and Constipation 564.00 [facility] [id number] [place] [address] Apr, [facility] [address] [address] Apr, [facility] [address] [address] Apr, [facility] [address] [address] Mar, [facility] [id number] [place] [address] Mar, [facility] [address] [address] Mar, [facility] [address] [address] Feb, [facility] [address] [address] Feb, [facility] [address] [address] Feb, [facility] [address] [address] Jan, HTN (hypertension) I10 ; Constipation K5 9.00 ; Chronic pain G89.29 ; Hyperlipidemia E78.5 ; Hypercholesterolemia E78.0 ; Insomnia G47.00 and Anxiety F41.9 [place] [address] [address] Jan, [place] [address] [address] Dec, [place] [address] [address] Nov, [place] [address] [address] Oct, Chronic kidney disease, unspecified 585. 9 ; Chronic pain syndrome 338.4 ; Hyperlipidemia 272.4 and Essential hypertension 401.[address] [address] Oct, Chronic kidney disease 585.9 [place] [address] [address] Oct, [place] [address] [address] Oct, Chronic kidney disease, unspecified 585. 9 ; Hypercalcemia 275.42 ; Hyperlipidemia 272.4 ; Essential hypertension 401.9 ; Chronic pain syndrome 338.4 ; Insomnia 780.52 ; Constipation 564.00 ; Environmental allergies V15.09 and Anxiety 300.00 [place] [address] [address] Oct, Chronic kidney disease 585.9 [place] [address] [address] Oct, [address] [address] Oct, Chronic kidney disease 585.9 and Hyperli pidemia 272.4 [place] [address] [id number] [place] [address] 10 Oct, 2014 [facility] [address] [id number] [place] [address] 10 Oct, 2014 [facility] [address] [id number] [place] [address] 18 Sep, 2014 [facility] [address] [id number] [place] [address] 15 Sep, 2014 [facility] [address] [id number] [place] [address] 15 Sep, 2014 Chronic kidney disease 585.9 and Hyperli pidemia 272.4 [facility] [address] [id number] [place] [address] Sep, [facility] [address] [id number] [place] [address] August, [facility] [address] [id number] [place] [address] August, [facility] [address] [id number] [place] [address] 14 Jul, 2014 [facility] [address] [id number] [place] [address] Jul, [facility] [address] [id number] [place] [address] 20 Jun, 2014 [facility] [facility] [address] [id number] [place] [address] 20 Jun, 2014 [facility] [address] [id number] [place] [address] 16 Jun, 2014 [facility] [address] [id number] [place] [address] 16 Jun, 2014 [facility] [address] [id number] [place] [address] Jun, [facility] [address] [id number] [place] [address] Jun, [facility] [address] [id number] [place] [address] Jun, [facility] [address] [facility] [id number] [place] [address] Jun, [facility] [address] [id number] [place] [address] May, [facility] [address] [id number] [place] [address] May, [facility] [address] [id number] [place] [address] May, [facility] [address] [id number] [place] [address] May, [facility] [address] [id number] [place] [address] Apr, [facility] [address] [id number] [place] [address] Apr, [facility] [address] [id number] [place] [address] Apr, [facility] [address] [id number] [place] [address] Apr, [facility] [address] [id number] [place] [address] Apr, [facility] [address] [id number] [place] [address] Apr, [facility] [address] [id number] [place] [address] Apr, [facility] [address] [id number] [place] [address] Apr, [facility] [address] [id number] [place] [address] Apr, [facility] [address] [id number] [place] [address] Apr, [facility] [address] [id number] [place] [address] Apr, [facility] [address] [id number] [place] [address] Mar, [facility] [address] [id number] [place] [address] Mar, [facility] [address] [id number] [place] [address] Feb, [facility] [address] [id number] [place] [address] Feb, [facility] [address] [id number] [place] [address] Feb, [facility] [address] [id number] [place] [address] Feb, [facility] [address] [id number] [place] [address] Feb, [facility] [address] [id number] [place] [address] Feb, [facility] [address] [id number] [place] [address] Feb, [facility] [address] [id number] [place] [address] Feb, [facility] [address] [id number] [place] [address] Feb, [facility] [address] [id number] [place] [address] Feb, [facility] [address] [id number] [place] [address] Jan, [facility] [address] [id number] [place] [address] Jan, [facility] [address] [id number] [place] [address] Jan, [facility] [address] [id number] [place] [address] Jan, [facility] [address] [id number] [place] [address] Jan, [facility] [address] [facility] [id number] [place] [address] 24 Jan, 2014 [facility] [address] [facility] [id number] [place] [address] Jan, [facility] [address] [id number] [place] [address] Jan, [facility] [address] [id number] [place] [address] 16 Jan, 2014 [facility] [address] [facility] [id number] [place] [address] Jan, [facility] [address] [id number] [place] [address] Jan, [facility] [address] [id number] [place] [address] Dec, 2013 [facility] [address] [id number] [place] [address] 26 Dec, 2013 [facility] [address] [id number] [place] [address] 19 Dec, 2013 [facility] [address] [id number] [place] [address] 19 Dec, 2013 [facility] [address] [id number] [place] [address] 18 Dec, 2013 [facility] [address] [id number] [place] [address] 18 Dec, 2013 [facility] [address] [id number] [place] [address] Dec, 2013 [facility] [address] [id number] [place] [address] Dec, 2013 [facility] [address] [id number] [place] [address] Nov, [facility] [address] [id number] [place] [address] Nov, [facility] [address] [facility] [id number] [place] [address] Nov, [facility] [address] [facility] [id number] [place] [address] Nov, [facility] [address] [facility] [id number] [place] [address] Nov, [facility] [address] [id number] [place] [address] Nov, [facility] [address] [facility] [id number] [place] [address] Nov, [facility] [address] [facility] [id number] [place] [address] Nov, [facility] [address] [id number] [place] [address] Oct, [facility] [address] [id number] [place] [address] Oct, [facility] [address] [id number] [place] [address] Oct, [facility] [address] [id number] [place] [address] Oct, [facility] [address] [id number] [place] [address] Sep, [facility] [address] [id number] [place] [address] Sep, [facility] [address] [id number] [place] [address] Sep, [facility] [address] [facility] [id number] [place] [address] Sep, [facility] [address] [id number] [place] [address] Sep, [facility] [address] [id number] [place] [address] Sep, [facility] [address] [id number] [place] [address] Sep, [facility] [address] [id number] [place] [address] Sep, [facility] [address] [id number] [place] [address] August, [facility] [address] [id number] [place] [address] August, [facility] [address] [id number] [place] [address] August, [facility] [address] [facility] [id number] [place] [address] August, [facility] [address] [id number] [place] [address] August, [facility] [address] [id number] [place] [address] August, [facility] [address] [id number] [place] [address] August, [facility] [address] [id number] [place] [address] August, [facility] [address] [id number] [place] [address] August, [facility] [address] [id number] [place] [address] August, [facility] [address] [id number] [place] [address] Jul, [facility] [address] [id number] [place] [address] Jul, [facility] [address] [id number] [place] [address] Jul, [facility] [address] [id number] [place] [address] Jul, [facility] [address] [id number] [place] [address] Jul, [facility] [address] [id number] [place] [address] 18 Jul, 2013 [facility] [address] [facility] [id number] [facility] [address] Jul, [facility] [address] [facility] [id number] [place] [address] Jul, [facility] [address] [id number] [place] [address] Jun, [facility] [address] [facility] [id number] [facility] [address] Jun, [facility] [address] [facility] [id number] [facility] [address] Jun, [facility] [address] [id number] [place] [address] Jun, [facility] [address] [id number] [place] [address] Jun, [facility] [address] [id number] [place] [address] Jun, [facility] [address] [facility] [id number] [place] [address] May, [facility] [address] [id number] [place] [address] May, [facility] [address] [id number] [place] [address] May, [facility] [address] [id number] [place] [address] May, [facility] [address] [facility] [id number] [place] [address] May, [facility] [address] [id number] [place] [address] May, [facility] [address] [id number] [place] [address] May, [facility] [address] [id number] [place] [address] Apr, [facility] [address] [id number] [place] [address] Apr, [facility] [address] [id number] [place] [address] Apr, [facility] [address] [id number] [place] [address] 14 Apr, 2013 [facility] [address] [id number] [place] [address] Apr, [facility] [address] [id number] [place] [address] Apr, [facility] [address] [id number] [place] [address] Mar, [facility] [address] [id number] [place] [address] Mar, [facility] [address] [id number] [place] [address] Mar, [facility] [address] [id number] [place] [address] Mar, [facility] [address] [id number] [place] [address] Mar, [facility] [address] [id number] [place] [address] Mar, [facility] [address] [id number] [place] [address] 16 Mar, 2013 [facility] [address] [id number] [place] [address] 16 Mar, 2013 [facility] [address] [id number] [place] [address] Mar, [facility] [address] [id number] [place] [address] Mar, [facility] [address] [id number] [place] [address] Feb, [facility] [address] [id number] [place] [address] Feb, [facility] [address] [id number] [place] [address] Feb, [facility] [address] [id number] [place] [address] Feb, [facility] [address] [id number] [place] [address] Feb, [facility] [address] [id number] [place] [address] Feb, [facility] [address] [id number] [place] [address] Feb, [facility] [address] [id number] [place] [address] Feb, [facility] [address] [id number] [place] [address] Feb, [facility] [address] [id number] [place] [address] Feb, [facility] [address] [id number] [place] [address] Jan, [facility] [address] [id number] [place] [address] Jan, [facility] [address] [id number] [place] [address] Jan, [facility] [address] [id number] [place] [address] Jan, [facility] [address] [id number] [place] [address] Jan, [facility] [address] [id number] [place] [address] Jan, [facility] [address] [id number] [place] [address] 17 Jan, 2013 [facility] [address] [id number] [place] [address] Jan, [facility] [address] [id number] [place] [address] Jan, [facility] [address] [id number] [place] [address] Dec, [facility] [address] [facility] [id number] [place] [address] Dec, [facility] [address] [id number] [place] [address] Dec, [facility] [address] [id number] [place] [address] Dec, [facility] [address] [id number] [place] [address] Nov, [facility] [address] [id number] [place] [address] Nov, [facility] [address] [id number] [place] [address] Nov, [facility] [address] [id number] [place] [address] Nov, [facility] [address] [id number] [place] [address] Nov, [facility] [address] [id number] [place] [address] Nov, [facility] [address] [id number] [place] [address] Oct, [facility] [address] [id number] [place] [address] Oct, [facility] [address] [facility] [id number] [place] [address] Oct, [facility] [address] [id number] [place] [address] Oct, [facility] [address] [id number] [place] [address] Sep, [facility] [address] [id number] [place] [address] Sep, [facility] [address] [id number] [place] [address] 17 Sep, 2012 [facility] [address] [id number] [place] [address] 14 Sep, 2012 [facility] [address] [id number] [place] [address] 10 Sep, 2012 [facility] [address] [id number] [place] [address] August, [facility] [address] [id number] [place] [address] 2012 [facility] [address] [id number] [place] [address] Jul, [facility] [address] [id number] [place] [address] Jul, [facility] [address] [id number] [place] [address] 15 Jul, 2012 [facility] [address] [id number] [place] [address] Jul, [facility] [address] [id number] [place] [address] 08 Jul, 2012 [facility] [address] [id number] [place] [address] Jun, [facility] [address] [id number] [place] [address] Jun, [facility] [address] [id number] [place] [address] 15 Jun, 2012 [facility] [address] [id number] [place] [address] 06 Jun, 2012 [facility] [address] [id number] [place] [address] Jun, [facility] [address] [id number] [place] [address] May, [facility] [address] [id number] [place] [address] May, [facility] [address] [id number] [place] [address] May, [facility] [address] [id number] [place] [address] May, [facility] [address] [id number] [place] [address] May, [facility] [address] [id number] [place] [address] May, [facility] [address] [id number] [place] [address] May, [facility] [address] [id number] [place] [address] May, [facility] [address] [id number] [place] [address] May, [facility] [address] [id number] [place] [address] Apr, [facility] [address] [id number] [place] [address] Apr, [facility] [address] [id number] [place] [address] Apr, [facility] [address] [id number] [place] [address] Apr, [facility] [address] [id number] [place] [address] Apr, [facility] [address] [id number] [place] [address] Mar, [facility] [address] [id number] [place] [address] Mar, [facility] [address] [id number] [place] [address] Mar, [facility] [address] [id number] [place] [address] Mar, [facility] [address] [id number] [place] [address] Mar, [facility] [address] [id number] [place] [address] Mar, [facility] [address] [id number] [place] [address] Mar, [facility] [address] [id number] [place] [address] Mar, [facility] [address] [id number] [place] [address] Mar, [facility] [address] [id number] [place] [address] Mar, [facility] [address] [id number] [place] [address] 30 Feb, 2012 [facility] [address] [id number] [place] [address] 30 Feb, 2012 [facility] [address] [id number] [place] [address] Feb, [facility] [address] [id number] [place] [address] 29 Feb, 2012 [facility] [address] [id number] [place] [address] Feb, [facility] [address] [id number] [place] [address] Feb, [facility] [address] [id number] [place] [address] Feb, [facility] [address] [id number] [place] [address] Feb, [facility] [address] [id number] [place] [address] 16 Feb, 2012 [facility] [address] [id number] [place] [address] 16 Feb, 2012 [facility] [address] [id number] [place] [address] Feb, [facility] [address] [id number] [place] [address] Feb, [facility] [address] [id number] [place] [address] Feb, [facility] [address] [id number] [place] [address] Feb, [facility] [address] [id number] [place] [address] Feb, [facility] [address] [id number] [place] [address] Feb, [facility] [address] [id number] [place] [address] Feb, [facility] [address] [id number] [place] [address] Feb, [facility] [address] [id number] [place] [address] Jan, [facility] [address] [id number] [place] [address] Jan, [facility] [address] [id number] [place] [address] Jan, [facility] [address] [id number] [place] [address] Jan, [facility] [address] [id number] [place] [address] Jan, [facility] [address] [id number] [place] [address] Jan, [facility] [address] [id number] [place] [address] Jan, [facility] [address] [id number] [place] [address] Jan, [facility] [address] [id number] [place] [address] Jan, [facility] [address] [id number] [place] [address] Jan, [facility] [address] [id number] [place] [address] Dec, [facility] [address] [id number] [place] [address] Dec, [facility] [address] [id number] [place] [address] Dec, [facility] [address] [id number] [place] [address] Dec, [facility] [address] [id number] [place] [address] Nov, [facility] [address] [id number] [place] [address] Nov, [facility] [address] [id number] [place] [address] Nov, [facility] [address] [id number] [place] [address] Nov, [facility] [address] [id number] [place] [address] Nov, [facility] [address] [id number] [place] [address] Nov, [facility] [address] [id number] [place] [address] Oct, [facility] [address] [id number] [place] [address] Oct, [facility] [address] [id number] [place] [address] Oct, [facility] [address] [id number] [place] [address] Oct, [facility] [address] [id number] [place] [address] Oct, [facility] [address] [id number] [place] [address] Sep, [facility] [address] [id number] [place] [address] Sep, [facility] [address] [id number] [place] [address] Sep, [facility] [address] [id number] [place] [address] Sep, [facility] [address] [id number] [place] [address] Sep, [facility] [address] [id number] [place] [address] August, [facility] [address] [id number] [place] [address] August, [facility] [address] [facility] [id number] [place] [address] August, [facility] [address] [id number] [place] [address] August, [facility] [address] [id number] [place] [address] Jul, [facility] [address] [id number] [place] [address] 24 Jul, 2011 [facility] [address] [id number] [place] [address] Jul, [facility] [address] [id number] [place] [address] 18 Jul, 2011 [facility] [address] [id number] [place] [address] 18 Jul, 2011 [facility] [address] [id number] [place] [address] 12 Jul, 2011 [facility] [address] [id number] [place] [address] 11 Jul, 2011 [facility] [address] [id number] [place] [address] 10 Jul, 2011 [facility] [address] [id number] [place] [address] Jul, [facility] [address] [id number] [facility] [address] Jul, [facility] [address] [id number] [facility] [place] [address] Jul, [facility] [address] [id number] [facility] [address] Jul, [facility] [address] [id number] [facility] [place] [address] Jul, [facility] [address] [id number] [facility] [address] Jul, [facility] [address] [id number] [place] [address] Jun, [facility] [address] [id number] [place] [address] Jun, [facility] [address] [id number] [place] [address] Jun, [facility] [address] [id number] [place] [address] Jun, [facility] [address] [id number] [place] [address] May, [facility] [address] [id number] [place] [address] 16 May, 2011 [facility] [address] [id number] [place] [address] May, [facility] [address] [id number] [place] [address] Apr, [facility] [address] [id number] [place] [address] 18 Apr, 2011 [facility] [address] [id number] [place] [address] Apr, [facility] [address] [id number] [place] [address] Apr, [facility] [address] [id number] [place] [address] 09 Apr, 2011 [facility] [address] [id number] [place] [address] Mar, [facility] [address] [id number] [place] [address] Mar, [facility] [address] [id number] [place] [address] Mar, [facility] [address] [id number] [place] [address] Mar, [facility] [address] [id number] [place] [address] Mar, [facility] [address] [id number] [place] [address] Mar, [facility] [address] [id number] [place] [address] Mar, [facility] [address] [id number] [place] [address] Feb, [facility] [address] [id number] [place] [address] Feb, [facility] [address] [id number] [place] [address] Feb, [facility] [address] [id number] [place] [address] Feb, [facility] [address] [id number] [place] [address] 16 Feb, 2011 [facility] [address] [id number] [place] [address] 14 Feb, 2011 [facility] [id number] [place] [address] Feb, [facility] [address] [id number] [place] [address] Jan, [facility] [address] [id number] [place] [address] Jan, [facility] [address] [id number] [place] [address] 31 Jan, 2011 [facility] [address] [id number] [place] [address] 18 Jan, 2011 [facility] [address] [id number] [place] [address] 17 Jan, 2011 [facility] [address] [id number] [place] [address] 17 Jan, 2011 [facility] [address] [id number] [place] [address] Jun, [facility] [address] [id number] [place] [address] 30 Mar, 2010 [facility] [address] [id number] [place] [address] 20 Mar, 2010 [facility] [address] [id number] [place] [address] 14 Mar, 2010 [facility] [address] [id number] [place] [address] 14 Mar, 2010 [facility] [address] [id number] [place] [address] 13 Mar, 2010 [facility] [address] [id number] [place] [address] 07 Mar, 2010 [facility] [address] [id number] [place] [address] 02 Mar, 2010 [facility] [address] [id number] [place] [address] Mar, [facility] [address] [id number] [place] [address] 30 Feb, 2010 [facility] [address] [id number] [place] [address] 29 Feb, 2010 [facility] [address] [id number] [place] [address] 17 Feb, 2010 [facility] [address] [id number] [place] [address] 17 Feb, 2010 [facility] [address] [facility] [id number] [place] [address] 16 Feb, 2010 [facility] [address] [id number] [place] [address] 08 Feb, 2010 [facility] [address] [id number] [place] [address] Feb, [facility] [address] [id number] [place] [address] Feb, [facility] [address] [facility] [id number] [place] [address] Jan, [facility] [address] [id number] [place] [address] Jan, [facility] [address] [id number] [place] [address] Jan, [facility] [address] [id number] [place] [address] Jan, [facility] [address] [id number] [place] [address] 29 Mar, 2009 [facility] [address] [id number] [place] [address] 22 Mar, 2009 [facility] [address] [id number] [place] [address] 19 Mar, 2009 [facility] [address] [id number] [place] [address] 19 Mar, 2009 [facility] [address] [id number] [place] [address] 14 Mar, 2009 [facility] [address] [id number] [place] [address] 10 Mar, 2009 [facility] [address] [id number] [place] [address] 18 Feb, 2009 [facility] [address] [id number] [place] [address] 18 Feb, 2009 [facility] [address] [facility] [id number] [place] [address] Jan, [facility] [address] [facility] [id number] [place] [address] Sep, [facility] [address] [facility] [id number] [place] [address] May, IMMUNIZATIONS No Known Immunizations SOCIAL HISTORY [...] Surgical History Left ear surgery Hospitalization History [facility] in [place]- Spontane ous Pneumothorax Hospitalization History [facility]- Colon resection Hospital[facility] History [facility] - diarrhea/ couldnt urin ate nov 2017 Hospitalization History pain /hip to foot right side 10/16/19 19
--- OUTSIDE RECORDS SUMMARY | 2019-08-28 08:58 | XMS REPORT ---
Author Author Dixon Lundberg Doctor Organization [facility] Address Unknown Phone Unavailable Care Team Providers Care Carriage Setter Name Role Phone Migration, Doctor Unavailable Unavailable PROBLEMS Type Condition ICD9-CM Code QHA27-CY Code Onset Dates Condition S tatus SNOMED Code Problem HTN (hypertension) I10 Active 3 2167502 Problem Insomnia G47.00 Active 453873539 Problem Constipation K59.00 Active 0765483 8 Problem Anxiety F41.9 Active 03240555 Problem Hyperlipidemia E78.5 Active 20674 004 Problem Chronic pain G89.29 Active 8893378 1 Problem Environmental allergies Z91.09 Active 091915489 Problem Primary insomnia F51.01 Active 397 2004 Problem Chronic kidney disease, stage III (moderate) N18.3 Active 399525419 Problem Psychophysiological insomnia F51.04 A ctive 374725961 Problem Vitamin D deficiency E55.9 Active 07093455 Problem Age-related cataract of both eyes, unspecified age-related cataract type H25.9 Active 36398586 Problem Thoracic back pain, unspecif ied back pain laterality, unspecified chronicity M54.6 Active 006981730 Problem Vision loss H54.7 Active 80495499 1 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 01506274 Problem Schizophrenia, unspecified type F20.9 Active 00295743 Problem Psychophysiological insomnia F51.04 A ctive 223266457 ALLERGIES No Information ENCOUNTERS Encounter Location Date Diagnosis [place] [id number] [place] [address] 13 May, 2019 Other constipation K59.09 [place] [address] [address] 11 May, 2019 Thoracic back pain, unspecified back hao n laterality, unspecified chronicity M54.6 [place] [address] [address] 06 May, 2019 Anxiety F41.9 and Thoracic back pain, un specified back pain laterality, unspecified chronicity M54.6 [place] [address] [address] May, [place] [address] [address] Apr, [facility] [address] [address] Apr, [place] [address] [address] Apr, Psychophysiological insomnia F51.04 [place] [address] [address] Apr, Thoracic back pain, unspecified back hao n laterality, unspecified chronicity M54.6 [place] [address] [address] Apr, Thoracic back pain, unspecified back hao n laterality, unspecified chronicity M54.6 [place] [address] [address] Apr, Anxiety F41.9 [place] [address] [address] Apr, Psychophysiological insomnia F51.04 [place] [address] [address] Mar, Encounter for Medicare annual wellness e [...] both eyes, unspecified age-related cataract type H25.9 [place] [address] [address] Mar, Thoracic back pain, unspecified back hao n laterality, unspecified chronicity M54.6 [facility] [address] [address] Mar, Psychophysiological insomnia F51.04 [facility] [address] [address] Mar, Thoracic back pain, unspecified back hao n laterality, unspecified chronicity M54.6 and Anxiety F41.9 [place] [address] [address] Mar, Psychophysiological insomnia F51.04 [place] [address] [address] Mar, [place] [address] [address] Mar, Psychophysiological insomnia F51.04 [place] [address] [address] Mar, [facility] [address] [address] Feb, [place] [address] [address] Feb, Thoracic back pain, unspecified back hao n laterality, unspecified chronicity M54.6 [place] [address] [address] Feb, Anxiety F41.9 and Thoracic back pain, un specified back pain laterality, unspecified chronicity M54.6 [place] [address] [address] Feb, Insomnia G47.00 ; HTN (hypertension) I10 and Constipation K59.00 [place] [address] [address] Feb, [facility] [address] [address] Jan, Thoracic back pain, unspecified back hao n laterality, unspecified chronicity M54.6 [facility] [address] [address] Jan, Anxiety F41.9 [facility] [address] [address] Jan, Anxiety F41.9 [facility] [address] [address] Jan, Anxiety F41.9 and Thoracic back pain, un specified back pain laterality, unspecified chronicity M54.6 [facility] [address] [address] Jan, [facility] [address] [address] Jan, [facility] [address] [address] Dec, Thoracic back pain, unspecified back hao n laterality, unspecified chronicity M54.6 [facility] [address] [address] Dec, Thoracic back pain, unspecified back hao n laterality, unspecified chronicity M54.6 [facility] [address] [address] Nov, Thoracic back pain, unspecified back hao n laterality, unspecified chronicity M54.6 [facility] [address] [address] Nov, Anxiety F41.9 and Thoracic back pain, un specified back pain laterality, unspecified chronicity M54.6 [facility] [address] [address] Nov, [facility] [address] [address] Nov, [facility] [address] [address] Nov, [facility] [address] [address] Oct, Thoracic back pain, unspecified back hao n laterality, unspecified chronicity M54.6 [facility] [address] [address] Oct, Anxiety F41.9 and Thoracic back pain, un specified back pain laterality, unspecified chronicity M54.6 [facility] [address] [address] Oct, Schizophrenia, unspecified type F20.9 an d Acute kidney injury N17.9 [facility] [address] [address] Oct, [facility] [address] [address] Oct, [facility] [address] [address] Oct, Thoracic back pain, unspecified back hao n laterality, unspecified chronicity M54.6 [facility] [address] [address] Oct, [facility] [address] [address] Oct, [facility] [address] [address] Sep, Anxiety F41.9 [facility] [address] [address] Sep, [facility] [address] [address] Sep, Thoracic back pain, unspecified back hao n laterality, unspecified chronicity M54.6 [facility] [address] [address] Sep, [facility] [address] [address] Sep, [facility] [address] [address] Sep, [facility] [address] [address] Sep, [facility] [address] [address] Sep, [facility] [address] [address] Sep, [facility] [address] [address] Sep, Chronic pain G89.29 ; Chronic kidney dis ease, stage III (moderate) N18.3 ; Hyperlipidemia E78.5 and Insomnia G47.00 [place] [address] [address] Sep, Thoracic back pain, unspecified back hao n laterality, unspecified chronicity M54.6 [place] [address] [address] August, Anxiety F41.9 [place] [address] [address] August, Thoracic back pain, unspecified back hao n laterality, unspecified chronicity M54.6 and Anxiety F41.9 [place] [address] [address] August, 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 [place] [address] [address] August, 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 [facility] [address] [address] August, [facility] [address] [address] August, [facility] [address] [address] August, Thoracic back pain, unspecified back hao n laterality, unspecified chronicity M54.6 [facility] [address] [address] August, [facility] [address] [address] August, Anxiety F41.9 and Thoracic back pain, un specified back pain laterality, unspecified chronicity M54.6 [place] [address] [address] Jul, [place] [address] [address] Jul, Thoracic back pain, unspecified back hao n laterality, unspecified chronicity M54.6 [place] [address] [address] Jun, Anxiety F41.9 and Thoracic back pain, un specified back pain laterality, unspecified chronicity M54.6 [place] [address] [address] Jun, Anxiety F41.9 and Thoracic back pain, un specified back pain laterality, unspecified chronicity M54.6 [place] [address] [address] Jun, Thoracic back pain, unspecified back hao n laterality, unspecified chronicity M54.6 [place] [address] [address] Jun, Anxiety F41.9 and Thoracic back pain, un specified back pain laterality, unspecified chronicity M54.6 [place] [address] [address] May, [place] [address] [address] May, [place] [address] [address] May, [place] [address] [address] May, Anxiety F41.9 and Encounter for medicati on monitoring Z51.81 [place] [address] [address] 05 May, 2018 Anxiety F41.9 and Thoracic back pain, un specified back pain laterality, unspecified chronicity M54.6 [place] [address] [id number] Apr, Hyperlipidemia 272.4 [place] [address] [address] Apr, Chronic pain G89.29 ; Anxiety F41.9 ; Ce rvical radiculopathy M54.12 and Vision loss H54.7 [place] [address] [address] Apr, [place] [address] [address] Apr, Anxiety F41.9 and Thoracic back pain, un specified back pain laterality, unspecified chronicity M54.6 [place] [address] [address] Mar, [place] [address] [address] Mar, Anxiety F41.9 and Thoracic back pain, un specified back pain laterality, unspecified chronicity M54.6 [place] [address] [address] 14 Feb, 2018 Anxiety F41.9 and Thoracic back pain, un specified back pain laterality, unspecified chronicity M54.6 [place] [address] [address] Feb, Thoracic back pain, unspecified back hao n laterality, unspecified chronicity M54.6 [place] [address] [address] Jan, [place] [address] [address] Jan, Anxiety F41.9 and Thoracic back pain, un specified back pain laterality, unspecified chronicity M54.6 [place] [address] [address] 19 Dec, 2017 Diarrhea of presumed infectious origin R 19.7 [place] [address] [address] 19 Dec, 2017 Diarrhea of presumed infectious origin R 19.7 [facility] [address] [address] 18 Dec, 2017 Thoracic back pain, unspecified back hao n laterality, unspecified chronicity M54.6 [place] [address] [address] 17 Dec, 2017 [place] [address] [address] Dec, Anxiety F41.9 and Thoracic back pain, un specified back pain laterality, unspecified chronicity M54.6 [place] [address] [address] Dec, Diarrhea of presumed infectious origin R 19.7 [place] [address] [address] Dec, [place] [address] [address] Dec, Anxiety F41.9 and Thoracic back pain, un specified back pain laterality, unspecified chronicity M54.6 [place] [address] [address] Dec, Anxiety F41.9 and Thoracic back pain, un specified back pain laterality, unspecified chronicity M54.6 [facility] [address] [place] [id number] Dec, Diarrhea of presumed infectious origin R 19.7 ; Anxiety F41.9 ; Thoracic back pain, unspecified back pain laterality, unspecified chronicity M54.6 and HTN (hypertension) I10 [place] [address] [address] 05 Dec, 2017 Anxiety F41.9 [facility] [address] [place] [id number] Dec, Anxiety F41.9 ; Diarrhea of presumed inf ectious origin R19.7 ; Generalized abdominal pain R10.84 and Localized edema R60.0 [place] [address] [address] Nov, [facility] [address] [place] [id number] Nov, Anxiety F41.9 ; Urinary retention R33.9 ; Diarrhea of presumed infectious origin R19.7 ; Weakness R53.1 ; Acute kidney failure, unspecified N17.9 ; Chronic kidney disease, stage III (moderate) N18.3 and Thoracic back pain, unspecified back pain laterality, unspecified chronicity M54.[address] [address] Oct, Thoracic back pain, unspecified back hao n laterality, unspecified chronicity M54.6 and Anxiety F41.[address] [address] Sep, Thoracic back pain, unspecified back hao n laterality, unspecified chronicity M54.6 and Anxiety F41.[address] [address] Sep, Thoracic back pain, unspecified back hao n laterality, unspecified chronicity M54.6 ; Anxiety F41.9 and Encounter for medication monitoring Z51.[address] [address] August, [address] [address] August, Thoracic back pain, unspecified back hao n laterality, unspecified chronicity M54.6 and Anxiety F41.[address] [address] August, Hyperlipidemia E78.5 and HTN (hypertensi on) I10 [address] [address] August, [place] [address] [address] August, Medicare welcome exam Z00.00 ; Chronic k idney failure N18.9 ; Anxiety F41.9 ; Chronic pain G89.29 ; Insomnia G47.00 ; Hyperlipidemia E78.5 ; HTN (hypertension) I10 and Thoracic back pain, unspecified back pain laterality, unspecified chronicity M54.6 [place] [address] [address] Jul, [place] [address] [address] Jul, [place] [address] [address] Jul, [place] [address] [address] Jul, Anxiety F41.9 [place] [address] [address] Jul, Thoracic back pain, unspecified back hao n laterality, unspecified chronicity M54.6 and Anxiety F41.9 [place] [address] [address] Jun, Thoracic back pain, unspecified back hao n laterality, unspecified chronicity M54.6 and Anxiety F41.9 [place] [address] [address] May, Thoracic back pain, unspecified back hao n laterality, unspecified chronicity M54.6 and Anxiety F41.9 [place] [address] [address] Apr, Thoracic back pain, unspecified back hao n laterality, unspecified chronicity M54.6 and Anxiety F41.9 [place] [address] [address] Mar, [place] [address] [address] Mar, Thoracic back pain, unspecified back hao n laterality, unspecified chronicity M54.6 and Anxiety F41.9 [place] [address] [address] Mar, Thoracic back pain, unspecified back hao n laterality, unspecified chronicity M54.6 ; HTN (hypertension) I10 ; Hyperlipidemia E78.5 and Anxiety F41.9 [place] [address] [address] Feb, Thoracic back pain, unspecified back hao n laterality, unspecified chronicity M54.6 and Anxiety F41.9 [place] [address] [address] Nov, [place] [address] [address] Oct, [place] [address] [address] Oct, Thoracic back pain, unspecified back hao n laterality, unspecified chronicity M54.6 [place] [address] [address] Oct, HTN (hypertension) I10 ; Constipation K5 9.00 ; Hyperlipidemia E78.5 ; Thoracic back pain, unspecified back pain laterality, unspecified chronicity M54.6 ; Chronic pain G89.29 ; Anxiety F41.9 ; Chronic kidney failure N18.9 ; Environmental allergies Z91.09 ; Vitamin D deficiency E55.9 and Primary insomnia F51.01 [place] [address] [address] Sep, Anxiety F41.9 [place] [address] [address] Sep, [place] [address] [address] August, Anxiety F41.9 [place] [address] [address] August, [facility] [address] [address] Jul, Anxiety F41.9 [facility] [address] [address] Jul, [facility] [address] [address] Jun, Anxiety F41.9 [facility] [address] [address] Jun, [facility] [address] [address] May, [facility] [address] [address] May, [facility] [address] [address] May, [facility] [address] [address] Apr, [facility] [address] [address] Apr, [facility] [address] [address] Apr, Anxiety F41.9 [facility] [address] [address] Apr, Anxiety F41.9 [facility] [address] [address] Apr, [facility] [address] [address] Mar, HTN (hypertension) I10 ; Tremor R25.1 ; Hypercholesterolemia E78.0 ; Constipation K59.00 ; Chronic pain G89.29 ; Hyperlipidemia E78.5 ; Insomnia G47.00 ; Anxiety F41.9 and Thoracic back pain, unspecified back pain laterality, unspecified chronicity M54.6 [facility] [address] [address] Mar, Tremor R25.1 ; HTN (hypertension) I10 ; Hypercholesterolemia E78.0 ; Constipation K59.00 ; Chronic pain G89.29 ; Hyperlipidemia E78.5 ; Insomnia G47.00 ; Anxiety F41.9 and Thoracic back pain, unspecified back pain laterality, unspecified chronicity M54.6 [facility] [address] [address] Mar, [facility] [address] [address] Mar, [facility] [address] [address] Feb, [facility] [address] [address] Jan, [facility] [address] [address] Jan, [facility] [address] [address] Dec, [facility] [address] [address] Nov, [facility] [address] [address] Nov, [facility] [address] [address] Oct, Anxiety F41.9 [facility] [address] [address] Oct, Chronic pain G89.29 [facility] [address] [address] Sep, [facility] [address] [address] Sep, [facility] [address] [address] Sep, [facility] [address] [address] Sep, [facility] [address] [address] Sep, Chronic pain syndrome G89.4 [facility] [address] [address] Sep, HTN (hypertension) I10 ; Chronic pain G8 9.29 ; Hypercholesterolemia E78.0 ; Chronic kidney failure N18.9 ; Constipation, unspecified constipation type K59.00 ; Anxiety F41.9 and Thoracic back pain, unspecified back pain laterality, unspecified chronicity M54.6 [place] [address] [address] August, Chronic pain syndrome G89.4 [place] [address] [address] August, Chronic pain syndrome G89.4 [place] [address] [address] Jul, Anxiety disorder, unspecified F41.9 and Chronic pain syndrome G89.4 [place] [address] [address] Jul, Insomnia, unspecified G47.00 and Chronic pain syndrome G89.4 [place] [address] [address] Jul, Allergic rhinitis J30.9 [place] [address] [address] Jul, Constipation, unspecified K59.00 [place] [address] [address] Jul, [place] [address] [address] Jun, [place] [address] [address] Jun, [facility] [address] [address] Jun, [facility] [id number] [place] [address] Jun, [facility] [id number] [place] [address] Jun, [facility] [id number] [place] [address] Jun, [facility] [address] [address] May, [facility] [id number] [place] [address] May, [facility] [address] [address] May, Anxiety F41.9 ; Insomnia G47.00 ; Hyperl ipidemia E78.5 ; Chronic pain G89.29 ; HTN (hypertension) I10 ; Environmental allergies V15.09 and Constipation 564.00 [facility] [id number] [place] [address] Apr, [facility] [address] [address] Apr, [facility] [address] [address] Apr, [facility] [address] [address] Mar, [facility] [id number] [place] [address] Mar, [facility] [address] [address] Mar, [facility] [address] [address] Feb, [facility] [address] [address] Feb, [facility] [address] [address] Feb, [facility] [address] [address] Jan, HTN (hypertension) I10 ; Constipation K5 9.00 ; Chronic pain G89.29 ; Hyperlipidemia E78.5 ; Hypercholesterolemia E78.0 ; Insomnia G47.00 and Anxiety F41.9 [place] [address] [address] Jan, [place] [address] [address] Dec, [place] [address] [address] Nov, [place] [address] [address] Oct, Chronic kidney disease, unspecified 585. 9 ; Chronic pain syndrome 338.4 ; Hyperlipidemia 272.4 and Essential hypertension 401.[address] [address] Oct, Chronic kidney disease 585.9 [place] [address] [address] Oct, [place] [address] [address] Oct, Chronic kidney disease, unspecified 585. 9 ; Hypercalcemia 275.42 ; Hyperlipidemia 272.4 ; Essential hypertension 401.9 ; Chronic pain syndrome 338.4 ; Insomnia 780.52 ; Constipation 564.00 ; Environmental allergies V15.09 and Anxiety 300.00 [place] [address] [address] Oct, Chronic kidney disease 585.9 [place] [address] [address] Oct, [address] [address] Oct, Chronic kidney disease 585.9 and Hyperli pidemia 272.4 [place] [address] [facility] [id number] [place] [address] 10 Oct, 2014 [facility] [address] [facility] [id number] [place] [address] 10 Oct, 2014 [facility] [address] [facility] [id number] [place] [address] 18 Sep, 2014 [facility] [address] [facility] [id number] [place] [address] 15 Sep, 2014 [facility] [address] [facility] [id number] [place] [address] 15 Sep, 2014 Chronic kidney disease 585.9 and Hyperli pidemia 272.4 [facility] [address] [facility] [id number] [place] [address] Sep, [facility] [address] [facility] [id number] [place] [address] August, [facility] [id number] [place] [address] August, [facility] [id number] [place] [address] 14 Jul, 2014 [facility] [id number] [place] [address] Jul, [facility] [id number] [place] [address] 20 Jun, 2014 [facility] [id number] [place] [address] 20 Jun, 2014 [facility] [id number] [place] [address] 16 Jun, 2014 [facility] [id number] [place] [address] 16 Jun, 2014 [facility] [id number] [place] [address] Jun, [facility] [id number] [place] [address] Jun, [facility] [id number] [place] [address] Jun, [facility] [address] [facility] [facility] [facility] [id number] [place] [address] Jun, [facility] [id number] [place] [address] May, [facility] [address] [facility] [id number] [place] [address] May, [facility] [address] [facility] [id number] [place] [address] May, [facility] [address] [facility] [id number] [place] [address] May, [facility] [address] [facility] [id number] [place] [address] Apr, [facility] [address] [facility] [id number] [place] [address] Apr, [facility] [address] [facility] [id number] [place] [address] Apr, [facility] [address] [id number] [place] [address] Apr, [facility] [address] [id number] [place] [address] Apr, [facility] [address] [id number] [place] [address] Apr, [facility] [address] [id number] [place] [address] Apr, [facility] [address] [id number] [place] [address] Apr, [facility] [address] [facility] [id number] [place] [address] Apr, [facility] [address] [id number] [place] [address] Apr, [facility] [address] [facility] [id number] [place] [address] Apr, [facility] [address] [id number] [place] [address] Mar, [facility] [address] [facility] [address] [id number] [place] [address] Mar, [facility] [address] [facility] [id number] [place] [address] Feb, [facility] [address] [id number] [place] [address] Feb, [facility] [address] [id number] [place] [address] Feb, [facility] [address] [id number] [place] [address] Feb, [facility] [address] [id number] [place] [address] Feb, [facility] [address] [id number] [place] [address] Feb, [facility] [id number] [place] [address] Feb, [facility] [id number] [place] [address] Feb, [facility] [id number] [place] [address] Feb, [facility] [id number] [place] [address] Feb, [facility] [id number] [place] [address] Jan, [facility] [id number] [place] [address] Jan, [facility] [id number] [place] [address] Jan, [facility] [id number] [place] [address] Jan, [facility] [id number] [place] [address] Jan, [facility] [address] [facility] [id number] [place] [address] 24 Jan, 2014 [facility] [address] [facility] [id number] [place] [address] Jan, [facility] [address] [id number] [place] [address] Jan, [facility] [address] [id number] [place] [address] 16 Jan, 2014 [facility] [address] [facility] [id number] [place] [address] Jan, [facility] [address] [id number] [place] [address] Jan, [facility] [address] [id number] [place] [address] Dec, 2013 [facility] [address] [id number] [place] [address] 26 Dec, 2013 [facility] [address] [id number] [place] [address] 19 Dec, 2013 [facility] [id number] [place] [address] 19 Dec, 2013 [facility] [id number] [place] [address] 18 Dec, 2013 [facility] [address] [id number] [place] [address] 18 Dec, 2013 [facility] [id number] [place] [address] Dec, 2013 [facility] [id number] [place] [address] Dec, 2013 [facility] [address] [id number] [place] [address] Nov, [facility] [id number] [place] [address] Nov, [facility] [address] [facility] [id number] [place] [address] Nov, [facility] [address] [facility] [id number] [place] [address] Nov, [facility] [address] [facility] [id number] [place] [address] Nov, [facility] [address] [id number] [place] [address] Nov, [facility] [address] [facility] [id number] [place] [address] Nov, [facility] [address] [facility] [id number] [place] [address] Nov, [facility] [id number] [place] [address] Oct, [facility] [address] [facility] [id number] [place] [address] Oct, [facility] [address] [id number] [place] [address] Oct, [facility] [address] [facility] [id number] [place] [address] Oct, [facility] [address] [id number] [place] [address] Sep, [facility] [id number] [place] [address] Sep, [facility] [address] [id number] [place] [address] Sep, [facility] [address] [facility] [id number] [place] [address] Sep, [facility] [id number] [place] [address] Sep, [facility] [id number] [place] [address] Sep, [facility] [id number] [place] [address] Sep, [facility] [address] [id number] [place] [address] Sep, [facility] [id number] [place] [address] August, [facility] [id number] [place] [address] August, [facility] [address] [id number] [place] [address] August, [facility] [address] [facility] [id number] [place] [address] August, [facility] [id number] [place] [address] August, [facility] [address] [id number] [place] [address] August, [facility] [id number] [place] [address] August, [facility] [address] [facility] [id number] [place] [address] August, [facility] [address] [facility] [id number] [place] [address] August, [facility] [address] [facility] [facility] [id number] [place] [address] August, [facility] [address] [facility] [id number] [place] [address] Jul, [facility] [id number] [place] [address] Jul, [facility] [address] [id number] [place] [address] Jul, [facility] [id number] [place] [address] Jul, [facility] [id number] [place] [address] Jul, [facility] [id number] [place] [address] 18 Jul, 2013 [facility] [address] [facility] [id number] [facility] [address] Jul, [facility] [address] [facility] [id number] [place] [address] Jul, [facility] [address] [id number] [place] [address] Jun, [facility] [address] [facility] [id number] [facility] [place] [address] Jun, [facility] [address] [facility] [id number] [facility] [place] [address] Jun, [facility] [id number] [place] [address] Jun, [facility] [id number] [place] [address] Jun, [facility] [address] [id number] [place] [address] Jun, [facility] [address] [facility] [id number] [facility] [place] [address] May, [facility] [id number] [place] [address] May, [facility] [id number] [place] [address] May, [facility] [id number] [place] [address] May, [facility] [address] [facility] [id number] [place] [address] May, [facility] [id number] [place] [address] May, [facility] [id number] [place] [address] May, [facility] [id number] [place] [address] Apr, [facility] [id number] [place] [address] Apr, [facility] [id number] [place] [address] Apr, [facility] [id number] [place] [address] 14 Apr, 2013 [facility] [id number] [place] [address] Apr, [facility] [id number] [place] [address] Apr, [facility] [id number] [place] [address] Mar, [facility] [id number] [place] [address] Mar, [facility] [id number] [place] [address] Mar, [facility] [id number] [place] [address] Mar, [facility] [id number] [place] [address] Mar, [facility] [id number] [place] [address] Mar, [facility] [id number] [place] [address] 16 Mar, 2013 [facility] [id number] [place] [address] 16 Mar, 2013 [facility] [id number] [place] [address] Mar, [facility] [id number] [place] [address] Mar, [facility] [id number] [place] [address] Feb, [facility] [id number] [place] [address] Feb, [facility] [id number] [place] [address] Feb, [facility] [id number] [place] [address] Feb, [facility] [id number] [place] [address] Feb, [facility] [id number] [place] [address] Feb, [facility] [id number] [place] [address] Feb, [facility] [id number] [place] [address] Feb, [facility] [id number] [place] [address] Feb, [facility] [id number] [place] [address] Feb, [facility] [id number] [place] [address] Jan, [facility] [id number] [place] [address] Jan, [facility] [id number] [place] [address] Jan, [facility] [id number] [place] [address] Jan, [facility] [id number] [place] [address] Jan, [facility] [id number] [place] [address] Jan, [facility] [id number] [place] [address] 17 Jan, 2013 [facility] [id number] [place] [address] Jan, [facility] [id number] [place] [address] Jan, [facility] [address] [id number] [place] [address] Dec, [facility] [address] [facility] [id number] [place] [address] Dec, [facility] [id number] [place] [address] Dec, [facility] [id number] [place] [address] Dec, [facility] [address] [id number] [place] [address] Nov, [facility] [id number] [place] [address] Nov, [facility] [address] [id number] [place] [address] Nov, [facility] [id number] [place] [address] Nov, [facility] [address] [id number] [place] [address] Nov, [facility] [id number] [place] [address] Nov, [facility] [id number] [place] [address] Oct, [facility] [id number] [place] [address] Oct, [facility] [address] [facility] [id number] [place] [address] Oct, [facility] [address] [id number] [place] [address] Oct, [facility] [address] [facility] [address] [id number] [place] [address] Sep, [facility] [address] [facility] [address] [id number] [place] [address] Sep, [facility] [address] [facility] [id number] [place] [address] 17 Sep, 2012 [facility] [address] [id number] [place] [address] 14 Sep, 2012 [facility] [address] [id number] [place] [address] 10 Sep, 2012 [facility] [address] [facility] [address] [id number] [place] [address] August, [facility] [address] [facility] [id number] [place] [address] 2012 [facility] [id number] [place] [address] Jul, [facility] [address] [facility] [id number] [place] [address] Jul, [facility] [address] [facility] [id number] [place] [address] 15 Jul, 2012 [facility] [address] [facility] [id number] [place] [address] Jul, [facility] [address] [facility] [id number] [place] [address] 08 Jul, 2012 [facility] [address] [facility] [id number] [place] [address] Jun, [facility] [address] [facility] [address] [id number] [place] [address] Jun, [facility] [address] [facility] [id number] [place] [address] 15 Jun, 2012 [facility] [address] [facility] [id number] [place] [address] 06 Jun, 2012 [facility] [address] [facility] [id number] [place] [address] Jun, [facility] [address] [facility] [id number] [place] [address] May, [facility] [address] [facility] [id number] [place] [address] May, [facility] [address] [facility] [id number] [place] [address] May, [facility] [address] [facility] [id number] [place] [address] May, [facility] [address] [facility] [id number] [place] [address] May, [facility] [address] [facility] [id number] [place] [address] May, [facility] [address] [facility] [id number] [place] [address] May, [facility] [address] [facility] [id number] [place] [address] May, [facility] [address] [facility] [id number] [place] [address] May, [facility] [address] [facility] [id number] [place] [address] Apr, [facility] [address] [facility] [id number] [place] [address] Apr, [facility] [address] [facility] [id number] [place] [address] Apr, [facility] [address] [facility] [id number] [place] [address] Apr, [facility] [address] [facility] [id number] [place] [address] Apr, [facility] [address] [facility] [id number] [place] [address] Mar, [facility] [address] [facility] [address] [id number] [place] [address] Mar, [facility] [address] [facility] [id number] [place] [address] Mar, [facility] [address] [facility] [id number] [place] [address] Mar, [facility] [address] [facility] [id number] [place] [address] Mar, [facility] [address] [facility] [id number] [place] [address] Mar, [facility] [address] [facility] [id number] [place] [address] Mar, [facility] [address] [facility] [id number] [place] [address] Mar, [facility] [address] [facility] [id number] [place] [address] Mar, [facility] [address] [facility] [id number] [place] [address] Mar, [facility] [address] [facility] [id number] [place] [address] 30 Feb, 2012 [facility] [address] [facility] [id number] [place] [address] 30 Feb, 2012 [facility] [id number] [place] [address] Feb, [facility] [id number] [place] [address] 29 Feb, 2012 [facility] [id number] [place] [address] Feb, [facility] [id number] [place] [address] Feb, [facility] [id number] [place] [address] Feb, [facility] [id number] [place] [address] Feb, [facility] [id number] [place] [address] 16 Feb, 2012 [facility] [id number] [place] [address] 16 Feb, 2012 [facility] [id number] [place] [address] Feb, [facility] [id number] [place] [address] Feb, [facility] [id number] [place] [address] Feb, [facility] [id number] [place] [address] Feb, [facility] [id number] [place] [address] Feb, [facility] [id number] [place] [address] Feb, [facility] [id number] [place] [address] Feb, [facility] [id number] [place] [address] Feb, [facility] [id number] [place] [address] Jan, [facility] [id number] [place] [address] Jan, [facility] [id number] [place] [address] Jan, [facility] [id number] [place] [address] Jan, [facility] [id number] [place] [address] Jan, [facility] [id number] [place] [address] Jan, [facility] [id number] [place] [address] Jan, [facility] [id number] [place] [address] Jan, [facility] [id number] [place] [address] Jan, [facility] [id number] [place] [address] Jan, [facility] [address] [id number] [place] [address] Dec, [facility] [id number] [place] [address] Dec, [facility] [id number] [place] [address] Dec, [facility] [id number] [place] [address] Dec, [facility] [address] [id number] [place] [address] Nov, [facility] [id number] [place] [address] Nov, [facility] [id number] [place] [address] Nov, [facility] [id number] [place] [address] Nov, [facility] [id number] [place] [address] Nov, [facility] [id number] [place] [address] Nov, [facility] [id number] [place] [address] Oct, [facility] [id number] [place] [address] Oct, [facility] [id number] [place] [address] Oct, [facility] [id number] [place] [address] Oct, [facility] [id number] [place] [address] Oct, [facility] [id number] [place] [address] Sep, [facility] [address] [id number] [place] [address] Sep, [facility] [id number] [place] [address] Sep, [facility] [id number] [place] [address] Sep, [facility] [id number] [place] [address] Sep, [facility] [id number] [place] [address] August, [facility] [id number] [place] [address] August, [facility] [id number] [place] [address] August, [facility] [id number] [place] [address] August, [facility] [id number] [place] [address] Jul, [facility] [id number] [place] [address] 24 Jul, 2011 [facility] [id number] [place] [address] Jul, [facility] [id number] [place] [address] 18 Jul, 2011 [facility] [id number] [place] [address] 18 Jul, 2011 [facility] [id number] [place] [address] 12 Jul, 2011 [facility] [id number] [place] [address] 11 Jul, 2011 [facility] [id number] [place] [address] 10 Jul, 2011 [facility] [id number] [place] [address] Jul, [facility] [id number] [facility] [place] [address] Jul, [facility] [id number] [facility] [place] [address] Jul, [facility] [id number] [facility] [place] [address] Jul, [facility] [id number] [facility] [place] [address] Jul, [facility] [id number] [facility] [place] [address] Jul, [facility] [id number] [place] [address] Jun, [facility] [id number] [place] [address] Jun, [facility] [id number] [place] [address] Jun, [facility] [id number] [place] [address] Jun, [facility] [id number] [place] [address] May, [facility] [id number] [place] [address] 16 May, 2011 [facility] [id number] [place] [address] May, [facility] [id number] [place] [address] Apr, [facility] [id number] [place] [address] 18 Apr, 2011 [facility] [id number] [place] [address] Apr, [facility] [id number] [place] [address] Apr, [facility] [id number] [place] [address] 09 Apr, 2011 [facility] [id number] [place] [address] Mar, [facility] [id number] [place] [address] Mar, [facility] [id number] [place] [address] Mar, [facility] [id number] [place] [address] Mar, [facility] [id number] [place] [address] Mar, [facility] [id number] [place] [address] Mar, [facility] [id number] [place] [address] Mar, [facility] [id number] [place] [address] Feb, [facility] [id number] [place] [address] Feb, [facility] [id number] [place] [address] Feb, [facility] [id number] [place] [address] Feb, [facility] [id number] [place] [address] 16 Feb, 2011 [facility] [id number] [place] [address] 14 Feb, 2011 [facility] [id number] [place] [address] Feb, [facility] [id number] [place] [address] Jan, [facility] [id number] [place] [address] Jan, [facility] [id number] [place] [address] 31 Jan, 2011 [facility] [id number] [place] [address] 18 Jan, 2011 [facility] [id number] [place] [address] 17 Jan, 2011 [facility] [id number] [place] [address] 17 Jan, 2011 [facility] [id number] [place] [address] Jun, [facility] [id number] [place] [address] 30 Mar, 2010 [facility] [id number] [place] [address] 20 Mar, 2010 [facility] [id number] [place] [address] 14 Mar, 2010 [facility] [id number] [place] [address] 14 Mar, 2010 [facility] [id number] [place] [address] 13 Mar, 2010 [facility] [id number] [place] [address] 07 Mar, 2010 [facility] [id number] [place] [address] 02 Mar, 2010 [facility] [id number] [place] [address] Mar, [facility] [id number] [place] [address] 30 Feb, 2010 [facility] [id number] [place] [address] 29 Feb, 2010 [facility] [id number] [place] [address] 17 Feb, 2010 [facility] [id number] [place] [address] 17 Feb, 2010 [facility] [address] [facility] [id number] [place] [address] 16 Feb, 2010 [facility] [id number] [place] [address] 08 Feb, 2010 [facility] [id number] [place] [address] Feb, [facility] [id number] [place] [address] Feb, [facility] [address] [facility] [id number] [place] [address] Jan, [facility] [id number] [place] [address] Jan, [facility] [id number] [place] [address] Jan, [facility] [id number] [place] [address] Jan, [facility] [id number] [place] [address] 29 Mar, 2009 [facility] [id number] [place] [address] 22 Mar, 2009 [facility] [id number] [place] [address] 19 Mar, 2009 [facility] [id number] [place] [address] 19 Mar, 2009 [facility] [id number] [place] [address] 14 Mar, 2009 [facility] [id number] [place] [address] 10 Mar, 2009 [facility] [id number] [place] [address] 18 Feb, 2009 [facility] [id number] [place] [address] 18 Feb, 2009 [facility] [address] [facility] [id number] [place] [address] Jan, [facility] [address] [facility] [id number] [place] [address] Sep, [facility] [address] [facility] [id number] [place] [address] May, IMMUNIZATIONS No Known Immunizations SOCIAL HISTORY [...] Surgical History Left ear surgery Hospitalization History [facility] in [place]- Spontane ous Pneumothorax Hospitalization History [facility]- Colon resection Hospitalization History [facility] - diarrhea/ couldnt urin ate nov 2017 Hospitalization History pain /hip to foot right side 10/16/19 19
--- OUTSIDE RECORDS SUMMARY | 2019-08-28 08:59 | XMS REPORT ---
Author Author Dixon Lundberg Doctor Organization [facility] Address Unknown Phone Unavailable Care Team Providers Care Health Plan Manager Name Role Phone Migration, Doctor Unavailable Unavailable PROBLEMS Type Condition ICD9-CM Code VKG02-QX Code Onset Dates Condition S tatus SNOMED Code Problem HTN (hypertension) I10 Active 3 5487223 Problem Insomnia G47.00 Active 440325146 Problem Constipation K59.00 Active 6801648 8 Problem Anxiety F41.9 Active 87199255 Problem Hyperlipidemia E78.5 Active 66344 004 Problem Chronic pain G89.29 Active 8453110 1 Problem Environmental allergies Z91.09 Active 123249672 Problem Primary insomnia F51.01 Active 397 2004 Problem Chronic kidney disease, stage III (moderate) N18.3 Active 253901722 Problem Psychophysiological insomnia F51.04 A ctive 158059318 Problem Vitamin D deficiency E55.9 Active 15442018 Problem Age-related cataract of both eyes, unspecified age-related cataract type H25.9 Active 06038779 Problem Thoracic back pain, unspecif ied back pain laterality, unspecified chronicity M54.6 Active 968601609 Problem Vision loss H54.7 Active 28609437 1 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 99848379 Problem Schizophrenia, unspecified type F20.9 Active 53008882 Problem Psychophysiological insomnia F51.04 A ctive 137004994 ALLERGIES No Information ENCOUNTERS Encounter Location Date Diagnosis [place] [address] [address] May, Thoracic back pain, unspecified back hao n laterality, unspecified chronicity M54.6 [place] [address] [address] May, Anxiety F41.9 and Thoracic back pain, un specified back pain laterality, unspecified chronicity M54.6 [place] [address] [address] May, [place] [address] [address] Apr, [place] [address] [address] Apr, [place] [address] [address] Apr, Psychophysiological insomnia F51.04 [place] [address] [address] Apr, Thoracic back pain, unspecified back hao n laterality, unspecified chronicity M54.6 [place] [address] [address] Apr, Thoracic back pain, unspecified back hao n laterality, unspecified chronicity M54.6 [place] [address] [address] Apr, Anxiety F41.9 [place] [address] [address] Apr, Psychophysiological insomnia F51.04 [place] [address] [address] Mar, Encounter for Medicare annual wellness e [...] unspecified age-related cataract type H25.9 [place] [address] [address] Mar, Thoracic back pain, unspecified back hao n laterality, unspecified chronicity M54.6 [place] [address] [address] Mar, Psychophysiological insomnia F51.04 [facility] [place] [address] [address] Mar, Thoracic back pain, unspecified back hao n laterality, unspecified chronicity M54.6 and Anxiety F41.9 [facility] [place] [address] [address] Mar, Psychophysiological insomnia F51.04 [facility] [place] [address] [address] Mar, [facility] [place] [address] [address] Mar, Psychophysiological insomnia F51.04 [place] [address] [address] Mar, [place] [address] [address] Feb, [place] [address] [address] Feb, Thoracic back pain, unspecified back hao n laterality, unspecified chronicity M54.6 [place] [address] [address] Feb, Anxiety F41.9 and Thoracic back pain, un specified back pain laterality, unspecified chronicity M54.6 [place] [address] [address] Feb, Insomnia G47.00 ; HTN (hypertension) I10 and Constipation K59.00 [place] [address] [address] Feb, [place] [address] [address] Jan, Thoracic back pain, unspecified back hao n laterality, unspecified chronicity M54.6 [place] [address] [address] Jan, Anxiety F41.9 [place] [address] [address] Jan, Anxiety F41.9 [facility], [place] [address] [address] Jan, Anxiety F41.9 and Thoracic back pain, un specified back pain laterality, unspecified chronicity M54.6 [facility] [place] [address] [address] Jan, [facility] [place] [address] [address] Jan, [facility] [place] [address] [address] Dec, Thoracic back pain, unspecified back hao n laterality, unspecified chronicity M54.6 [facility] [place] [address] [address] Dec, Thoracic back pain, unspecified back hao n laterality, unspecified chronicity M54.6 [facility] [place] [address] [address] Nov, Thoracic back pain, unspecified back hao n laterality, unspecified chronicity M54.6 [facility], [place] [address] [address] Nov, Anxiety F41.9 and Thoracic back pain, un specified back pain laterality, unspecified chronicity M54.6 [facility], [place] [address] [address] Nov, [facility] [place] [address] [address] Nov, [facility] [place] [address] [address] Nov, [facility] [place] [address] [address] Oct, Thoracic back pain, unspecified back hao n laterality, unspecified chronicity M54.6 [facility] [place] [address] [address] Oct, Anxiety F41.9 and Thoracic back pain, un specified back pain laterality, unspecified chronicity M54.6 [facility], [place] [address] [address] Oct, Schizophrenia, unspecified type F20.9 an d Acute kidney injury N17.9 [facility], [place] [address] [address] Oct, [facility] [place] [address] [address] Oct, [facility], [place] [address] [address] Oct, Thoracic back pain, unspecified back hao n laterality, unspecified chronicity M54.6 [facility], [place] [address] [address] Oct, [facility] [place] [address] [address] Oct, [facility], [place] [address] [address] Sep, Anxiety F41.9 [facility], [place] [address] [address] Sep, [facility], [place] [address] [address] Sep, Thoracic back pain, unspecified back hao n laterality, unspecified chronicity M54.6 [facility] [place] [address] [address] Sep, [facility] [place] [address] [address] Sep, [facility] [place] [address] [address] Sep, [facility] [place] [address] [address] Sep, [facility], [place] [address] [address] Sep, [facility], [place] [address] [address] Sep, [facility], [place] [address] [address] Sep, Chronic pain G89.29 ; Chronic kidney dis ease, stage III (moderate) N18.3 ; Hyperlipidemia E78.5 and Insomnia G47.00 [place] [address] [address] Sep, Thoracic back pain, unspecified back hao n laterality, unspecified chronicity M54.6 [place] [address] [address] August, Anxiety F41.9 [place] [address] [address] August, Thoracic back pain, unspecified back hao n laterality, unspecified chronicity M54.6 and Anxiety F41.9 [place] [address] [address] August, 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 [place] [address] [address] August, 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 [place] [address] [address] August, [facility], [place] [address] [address] August, [facility] [place] [address] [address] August, Thoracic back pain, unspecified back hao n laterality, unspecified chronicity M54.6 [facility] [place] [address] [address] August, [facility] [place] [address] [address] August, Anxiety F41.9 and Thoracic back pain, un specified back pain laterality, unspecified chronicity M54.6 [facility] [place] [address] [address] Jul, [facility], [place] [address] [place] [id number] Jul, Thoracic back pain, unspecified back hao n laterality, unspecified chronicity M54.6 [facility] [place] [address] [address] Jun, Anxiety F41.9 and Thoracic back pain, un specified back pain laterality, unspecified chronicity M54.6 [place] [address] [address] Jun, Anxiety F41.9 and Thoracic back pain, un specified back pain laterality, unspecified chronicity M54.6 [place] [address] [address] Jun, Thoracic back pain, unspecified back hao n laterality, unspecified chronicity M54.6 [place] [address] [address] Jun, Anxiety F41.9 and Thoracic back pain, un specified back pain laterality, unspecified chronicity M54.6 [place] [address] [address] May, [facility], [place] [address] [address] May, [facility], [place] [address] [address] May, [facility], [place] [address] [address] May, Anxiety F41.9 and Encounter for medicati on monitoring Z51.81 [facility], [place] [address] [address] May, Anxiety F41.9 and Thoracic back pain, un specified back pain laterality, unspecified chronicity M54.6 [place] [address] [address] Apr, Hyperlipidemia 272.4 [place] [address] [address] Apr, Chronic pain G89.29 ; Anxiety F41.9 ; Ce rvical radiculopathy M54.12 and Vision loss H54.7 [place] [address] [address] Apr, [place] [address] [address] Apr, Anxiety F41.9 and Thoracic back pain, un specified back pain laterality, unspecified chronicity M54.6 [place] [address] [address] 17 Mar, 2018 [place] [address] [address] Mar, Anxiety F41.9 and Thoracic back pain, un specified back pain laterality, unspecified chronicity M54.6 [place] [address] [address] Feb, Anxiety F41.9 and Thoracic back pain, un specified back pain laterality, unspecified chronicity M54.6 [place] [address] [address] 07 Feb, 2018 Thoracic back pain, unspecified back hao n laterality, unspecified chronicity M54.6 [place] [address] [address] Jan, [place] [address] [address] Jan, Anxiety F41.9 and Thoracic back pain, un specified back pain laterality, unspecified chronicity M54.6 [place] [address] [address] Dec, Diarrhea of presumed infectious origin R 19.7 [place] [address] [place] [id number] Dec, Diarrhea of presumed infectious origin R 19.7 [place] [address] [place] [address] 18 Dec, 2017 Thoracic back pain, unspecified back hao n laterality, unspecified chronicity M54.6 [place] [address] [place] [address] Dec, [place] [address] Dec, Anxiety F41.9 and Thoracic back pain, un specified back pain laterality, unspecified chronicity M54.6 [place] [address] [place] [address] Dec, Diarrhea of presumed infectious origin R 19.7 [place] [address] [place] [address] Dec, [place] [address] [place] [address] Dec, Anxiety F41.9 and Thoracic back pain, un specified back pain laterality, unspecified chronicity M54.6 [place] [address] [place] [id number] Dec, Anxiety F41.9 and Thoracic back pain, un specified back pain laterality, unspecified chronicity M54.6 [facility] [address] [place] [id number] Dec, Diarrhea of presumed infectious origin R 19.7 ; Anxiety F41.9 ; Thoracic back pain, unspecified back pain laterality, unspecified chronicity M54.6 and HTN (hypertension) I10 [place] [address] [place] [id number] Dec, Anxiety F41.9 [facility] [address] [place] [id number] Dec, Anxiety F41.9 ; Diarrhea of presumed inf ectious origin R19.7 ; Generalized abdominal pain R10.84 and Localized edema R60.0 [place] [address] [address] Nov, [facility] [address] [place] [id number] Nov, Anxiety F41.9 ; Urinary retention R33.9 ; Diarrhea of presumed infectious origin R19.7 ; Weakness R53.1 ; Acute kidney failure, unspecified N17.9 ; Chronic kidney disease, stage III (moderate) N18.3 and Thoracic back pain, unspecified back pain laterality, unspecified chronicity M54.6 [place] [address] [address] Oct, Thoracic back pain, unspecified back hao n laterality, unspecified chronicity M54.6 and Anxiety F41.[address] [address] Sep, Thoracic back pain, unspecified back hao n laterality, unspecified chronicity M54.6 and Anxiety F41.9 [place] [address] [address] Sep, Thoracic back pain, unspecified back hao n laterality, unspecified chronicity M54.6 ; Anxiety F41.9 and Encounter for medication monitoring Z51.81 [place] [address] [address] August, [place] [address] [address] August, Thoracic back pain, unspecified back hao n laterality, unspecified chronicity M54.6 and Anxiety F41.[address] [address] August, Hyperlipidemia E78.5 and HTN (hypertensi on) I10 [address] [address] August, [address] [address] 03 May, 2018 Medicare welcome exam Z00.00 ; Chronic k idney failure N18.9 ; Anxiety F41.9 ; Chronic pain G89.29 ; Insomnia G47.00 ; Hyperlipidemia E78.5 ; HTN (hypertension) I10 and Thoracic back pain, unspecified back pain laterality, unspecified chronicity M54.6 [place] [address] [address] Jul, [place] [address] [address] Jul, [place] [address] [address] Jul, [place] [address] [address] Jul, Anxiety F41.9 [place] [address] [address] Jul, Thoracic back pain, unspecified back hao n laterality, unspecified chronicity M54.6 and Anxiety F41.9 [place] [address] [address] Jun, Thoracic back pain, unspecified back hao n laterality, unspecified chronicity M54.6 and Anxiety F41.9 [place] [address] [address] May, Thoracic back pain, unspecified back hao n laterality, unspecified chronicity M54.6 and Anxiety F41.9 [place] [address] [address] Apr, Thoracic back pain, unspecified back hao n laterality, unspecified chronicity M54.6 and Anxiety F41.9 [place] [address] [address] Mar, [place] [address] [address] Mar, Thoracic back pain, unspecified back hao n laterality, unspecified chronicity M54.6 and Anxiety F41.9 [place] [address] [address] Mar, Thoracic back pain, unspecified back hao n laterality, unspecified chronicity M54.6 ; HTN (hypertension) I10 ; Hyperlipidemia E78.5 and Anxiety F41.9 [place] [address] [address] Feb, Thoracic back pain, unspecified back hao n laterality, unspecified chronicity M54.6 and Anxiety F41.9 [place] [address] [address] Nov, [place] [address] [address] Oct, [place] [address] [address] Oct, Thoracic back pain, unspecified back hao n laterality, unspecified chronicity M54.6 [place] [address] [address] Oct, HTN (hypertension) I10 ; Constipation K5 9.00 ; Hyperlipidemia E78.5 ; Thoracic back pain, unspecified back pain laterality, unspecified chronicity M54.6 ; Chronic pain G89.29 ; Anxiety F41.9 ; Chronic kidney failure N18.9 ; Environmental allergies Z91.09 ; Vitamin D deficiency E55.9 and Primary insomnia F51.01 [place] [address] [address] Sep, Anxiety F41.9 [place] [address] [address] Sep, [address] [address] August, Anxiety F41.9 [place] [address] [address] August, [place] [address] [address] Jul, Anxiety F41.9 [facility], [place] [address] [address] Jul, [facility], [place] [address] [address] Jun, Anxiety F41.9 [facility], [place] [address] [address] Jun, [facility], [place] [address] [address] May, [facility], [place] [address] [address] May, [facility], [place] [address] [address] May, [facility], [place] [address] [address] Apr, [facility] [place] [address] [address] Apr, [facility] [place] [address] [address] Apr, Anxiety F41.9 [facility], [place] [address] [address] Apr, Anxiety F41.9 [facility], [place] [address] [address] Apr, [facility], [place] [address] [address] Mar, HTN (hypertension) I10 ; Tremor R25.1 ; Hypercholesterolemia E78.0 ; Constipation K59.00 ; Chronic pain G89.29 ; Hyperlipidemia E78.5 ; Insomnia G47.00 ; Anxiety F41.9 and Thoracic back pain, unspecified back pain laterality, unspecified chronicity M54.6 [facility], [place] [address] [place] [id number] [place] [address] Mar, Tremor R25.1 ; HTN (hypertension) I10 ; Hypercholesterolemia E78.0 ; Constipation K59.00 ; Chronic pain G89.29 ; Hyperlipidemia E78.5 ; Insomnia G47.00 ; Anxiety F41.9 and Thoracic back pain, unspecified back pain laterality, unspecified chronicity M54.6 [facility], [place] [address] [address] Mar, [facility] [place] [address] [address] Mar, [facility] [place] [address] [address] Feb, [facility] [place] [address] [address] Jan, [facility] [place] [address] [address] Jan, [facility] [place] [address] [address] Dec, [facility] [place] [address] [address] Nov, [facility] [place] [address] [address] Nov, [facility] [place] [address] [address] Oct, Anxiety F41.9 [facility] [place] [address] [address] Oct, Chronic pain G89.29 [facility] [place] [address] [address] Sep, [facility] [place] [address] [address] Sep, [facility] [place] [address] [address] Sep, [facility] [place] [address] [address] Sep, [facility] [place] [address] [address] 16 Sep, 2015 Chronic pain syndrome G89.4 [facility] [place] [address] [address] Sep, HTN (hypertension) I10 ; Chronic pain G8 9.29 ; Hypercholesterolemia E78.0 ; Chronic kidney failure N18.9 ; Constipation, unspecified constipation type K59.00 ; Anxiety F41.9 and Thoracic back pain, unspecified back pain laterality, unspecified chronicity M54.6 [place] [address] [address] August, Chronic pain syndrome G89.4 [place] [address] [address] August, Chronic pain syndrome G89.4 [place] [address] [address] Jul, Anxiety disorder, unspecified F41.9 and Chronic pain syndrome G89.4 [place] [address] [address] Jul, Insomnia, unspecified G47.00 and Chronic pain syndrome G89.4 [place] [address] [address] Jul, Allergic rhinitis J30.9 [place] [address] [address] Jul, Constipation, unspecified K59.00 [place] [address] [address] Jul, [place] [address] [address] Jun, [place] [address] [address] Jun, [place] [address] [address] Jun, [place] [address] [address] Jun, [facility], [place] [address] [place] [id number] [place] [address] Jun, [facility] [place] [address] [address] Jun, [facility] [place] [address] [place] [id number] [place] [address] May, [facility] [place] [address] [address] May, [facility] [place] [address] [address] May, Anxiety F41.9 ; Insomnia G47.00 ; Hyperl ipidemia E78.5 ; Chronic pain G89.29 ; HTN (hypertension) I10 ; Environmental allergies V15.09 and Constipation 564.00 [facility] [place] [address] [address] Apr, [facility] [place] [address] [address] Apr, [facility] [place] [address] [address] Apr, [facility] [place] [address] [address] Mar, [facility] [place] [address] [address] Mar, [facility] [place] [address] [address] Mar, [facility] [place] [address] [address] Feb, [facility] [place] [address] [address] Feb, [facility] [place] [address] [address] Feb, [facility] [place] [address] [address] Jan, HTN (hypertension) I10 ; Constipation K5 9.00 ; Chronic pain G89.29 ; Hyperlipidemia E78.5 ; Hypercholesterolemia E78.0 ; Insomnia G47.00 and Anxiety F41.[address] [address] Jan, [address] [address] Dec, [address] [address] Nov, [address] [address] Oct, Chronic kidney disease, unspecified 585. 9 ; Chronic pain syndrome 338.4 ; Hyperlipidemia 272.4 and Essential hypertension 401.[address] [address] Oct, Chronic kidney disease 585.[address] [address] Oct, [address] [address] Oct, Chronic kidney disease, unspecified 585. 9 ; Hypercalcemia 275.42 ; Hyperlipidemia 272.4 ; Essential hypertension 401.9 ; Chronic pain syndrome 338.4 ; Insomnia 780.52 ; Constipation 564.00 ; Environmental allergies V15.09 and Anxiety 300.[address] [address] Oct, Chronic kidney disease 585.[address] [address] Oct, [address] [address] Oct, Chronic kidney disease 585.9 and Hyperli pidemia 272.[address] [address] Oct, [address] [place] [address] 10 Oct, 2014 [facility] [address] [id number] [place] [address] 18 Sep, 2014 [facility] [address] [place] [id number] [place] [address] 15 Sep, 2014 [facility] [address] [id number] [place] [address] Sep, Chronic kidney disease 585.9 and Hyperli pidemia 272.4 [facility] [address] [id number] [place] [address] Sep, [facility] [id number] [place] [address] August, [facility] [id number] [place] [address] August, [facility] [id number] [place] [address] 14 Jul, 2014 [facility] [id number] [place] [address] Jul, [facility] [id number] [place] [address] Jun[facility] [facility] [id number] [place] [address] Jun, [facility] [id number] [place] [address] 16 Jun, 2014 [facility] [place] [facility] [id number] [place] [address] 16 Jun, 2014 [facility] [place] [facility] [id number] [place] [address] Jun, [facility] [id number] [place] [address] Jun, [facility] [place] [facility] [id number] [place] [address] Jun, [facility] [id number] [place] [address] Jun, [facility] [place] [facility] [address] [facility] [id number] [place] [address] May, [facility] [place] [facility] [address] [facility] [id number] [place] [address] May, [facility] [place] [facility] [address] [id number] [place] [address] May, [facility] [place] [facility] [address] [id number] [place] [address] May, [facility] [place] [facility] [address] [id number] [place] [address] Apr, [facility] [place] [facility] [address] [id number] [place] [address] Apr, [facility] [place] [facility] [address] [id number] [place] [address] Apr, [facility] [place] [facility] [address] [id number] [place] [address] Apr, [facility] [place] [facility] [address] [id number] [place] [address] Apr, [facility] [place] [facility] [address] [id number] [place] [address] Apr, [facility] [place] [facility] [address] [id number] [place] [address] Apr, [facility] [place] [facility] [address] [id number] [place] [address] Apr, [facility] [place] [facility] [address] [facility] [id number] [place] [address] Apr, [facility] [place] [facility] [address] [id number] [place] [address] Apr, [facility] [place] [facility] [address] [id number] [place] [address] Apr, [facility] [place] [facility] [address] [id number] [place] [address] Mar, [facility] [place] [facility] [address] [id number] [place] [address] Mar, [facility] [place] [facility] [address] [id number] [place] [address] Feb, [facility] [place] [facility] [address] [id number] [place] [address] Feb, [facility] [place] [facility] [id number] [place] [address] Feb, [facility] [place] [facility] [address] [id number] [place] [address] Feb, [facility] [place] [facility] [address] [id number] [place] [address] Feb, [facility] [place] [facility] [address] [id number] [place] [address] Feb, [facility] [place] [facility] [id number] [place] [address] Feb, [facility] [place] [facility] [address] [id number] [place] [address] Feb, [facility] [place] [facility] [address] [id number] [place] [address] Feb, [facility] [place] [facility] [address] [id number] [place] [address] Feb, [facility] [place] [facility] [address] [id number] [place] [address] Jan, [facility] [place] [facility] [address] [id number] [place] [address] Jan, [facility] [place] [facility] [address] [id number] [place] [address] Jan, [facility] [place] [facility] [id number] [place] [address] Jan, [facility] [place] [facility] [address] [id number] [place] [address] Jan, [facility] [place] [facility] [id number] [place] [address] 24 Jan, 2014 [facility] [place] [facility] [address] [facility] [id number] [place] [address] Jan, [facility] [place] [facility] [address] [facility] [id number] [place] [address] 17 Jan, 2014 [facility] [place] [facility] [address] [id number] [place] [address] 16 Jan, 2014 [facility] [place] [facility] [address] [id number] [place] [address] Jan, [facility] [place] [facility] [address] [facility] [id number] [place] [address] Jan, [facility] [place] [facility] [address] [id number] [place] [address] 26 Dec, 2013 [facility] [place] [facility] [address] [id number] [place] [address] 26 Dec, 2013 [facility] [place] [facility] [address] [id number] [place] [address] 19 Dec, 2013 [facility] [place] [facility] [address] [facility] [id number] [place] [address] 19 Dec, 2013 [facility] [place] [facility] [address] [id number] [place] [address] 18 Dec, 2013 [facility] [place] [facility] [address] [id number] [place] [address] 18 Dec, 2013 [facility] [place] [facility] [address] [id number] [place] [address] Dec, 2013 [facility] [place] [facility] [address] [facility] [id number] [place] [address] Dec, 2013 [facility] [place] [facility] [address] [id number] [place] [address] Nov, [facility] [place] [facility] [address] [id number] [place] [address] Nov, [facility] [place] [facility] [address] [id number] [place] [address] Nov, [facility] [place] [facility] [address] [id number] [place] [address] Nov, [facility] [place] [facility] [address] [id number] [place] [address] Nov, [facility] [place] [facility] [address] [facility] [id number] [place] [address] Nov, [facility] [place] [facility] [address] [id number] [place] [address] Nov, [facility] [place] [facility] [address] [id number] [place] [address] Nov, [facility] [place] [facility] [address] [facility] [id number] [place] [address] Oct, [facility] [place] [facility] [address] [id number] [place] [address] Oct, [facility] [place] [facility] [address] [id number] [place] [address] Oct, [facility] [place] [facility] [address] [id number] [place] [address] Oct, [facility] [place] [facility] [address] [id number] [place] [address] Sep, [facility] [place] [facility] [address] [id number] [place] [address] Sep, [facility] [place] [facility] [address] [id number] [place] [address] Sep, [facility] [place] [facility] [address] [id number] [place] [address] Sep, [facility] [place] [facility] [address] [id number] [place] [address] Sep, [facility] [place] [facility] [address] [id number] [place] [address] Sep, [facility] [place] [facility] [address] [id number] [place] [address] Sep, [facility] [place] [facility] [address] [id number] [place] [address] Sep, [facility] [place] [facility] [address] [id number] [place] [address] August, [facility] [place] [facility] [address] [id number] [place] [address] August, [facility] [place] [facility] [address] [id number] [place] [address] August, [facility] [place] [facility] [address] [id number] [place] [address] August, [facility] [place] [facility] [address] [id number] [place] [address] August, [facility] [place] [facility] [address] [id number] [place] [address] August, [facility] [place] [facility] [address] [id number] [place] [address] August, [facility] [place] [facility] [address] [id number] [place] [address] August, [facility] [place] [facility] [address] [id number] [place] [address] August, [facility] [place] [facility] [address] [id number] [place] [address] August, [facility] [place] [facility] [address] [id number] [place] [address] Jul, [facility] [place] [facility] [address] [id number] [place] [address] Jul, [facility] [place] [facility] [address] [id number] [place] [address] Jul, [facility] [place] [facility] [address] [id number] [place] [address] Jul, [facility] [place] [facility] [address] [id number] [place] [address] Jul, [facility] [place] [facility] [address] [id number] [place] [address] Jul, [facility] [place] [facility] [address] [id number] [place] [address] Jul, [facility] [place] [facility] [address] [facility] [id number] [place] [address] Jul, [facility] [place] [facility] [address] [facility] [id number] [place] [address] Jun, [facility] [place] [facility] [address] [facility] [id number] [place] [address] Jun, [facility] [place] [facility] [address] [id number] [place] [address] Jun, [facility] [place] [facility] [address] [facility] [id number] [place] [address] Jun, [facility] [place] [facility] [address] [id number] [place] [address] Jun, [facility] [place] [facility] [address] [id number] [place] [address] Jun, [facility] [place] [facility] [address] [id number] [place] [address] May, [facility] [place] [facility] [address] [facility] [id number] [place] [address] May, [facility] [place] [facility] [address] [id number] [place] [address] May, [facility] [place] [facility] [address] [id number] [place] [address] May, [facility] [place] [facility] [address] [id number] [place] [address] May, [facility] [place] [facility] [address] [facility] [id number] [place] [address] May, [facility] [place] [facility] [address] [id number] [place] [address] May, [facility] [place] [facility] [address] [facility] [id number] [place] [address] Apr, [facility] [place] [facility] [address] [id number] [place] [address] Apr, [facility] [place] [facility] [address] [id number] [place] [address] 14 Apr, 2013 [facility] [place] [facility] [address] [id number] [place] [address] 14 Apr, 2013 [facility] [place] [facility] [address] [id number] [place] [address] 10 Apr, 2013 [facility] [place] [facility] [address] [id number] [place] [address] 10 Apr, 2013 [facility] [place] [facility] [address] [id number] [place] [address] 31 Mar, 2013 [facility] [place] [facility] [address] [id number] [place] [address] 31 Mar, 2013 [facility] [place] [facility] [address] [id number] [place] [address] Mar, [facility] [place] [facility] [address] [id number] [place] [address] Mar, [facility] [place] [facility] [address] [id number] [place] [address] Mar, [facility] [place] [facility] [address] [id number] [place] [address] 19 Mar, 2013 [facility] [place] [facility] [address] [id number] [place] [address] 16 Mar, 2013 [facility] [place] [facility] [address] [id number] [place] [address] 16 Mar, 2013 [facility] [place] [facility] [address] [id number] [place] [address] 12 Mar, 2013 [facility] [place] [facility] [address] [id number] [place] [address] Mar, [facility] [place] [facility] [address] [id number] [place] [address] Feb, [facility] [place] [facility] [address] [id number] [place] [address] Feb, [facility] [place] [facility] [address] [id number] [place] [address] Feb, [facility] [place] [facility] [address] [facility] [id number] [place] [address] Feb, [facility] [place] [facility] [address] [id number] [place] [address] Feb, [facility] [place] [facility] [address] [id number] [place] [address] 14 Feb, 2013 [facility] [place] [facility] [address] [id number] [place] [address] Feb, [facility] [place] [facility] [address] [facility] [id number] [place] [address] Feb, [facility] [place] [facility] [address] [id number] [place] [address] Feb, [facility] [place] [facility] [address] [id number] [place] [address] 08 Feb, 2013 [facility] [place] [facility] [address] [id number] [place] [address] Jan, [facility] [place] [facility] [address] [id number] [place] [address] Jan, [facility] [place] [facility] [address] [id number] [place] [address] Jan, [facility] [place] [facility] [address] [id number] [place] [address] Jan, 2012 [facility] [place] [facility] [address] [id number] [place] [address] Jan, [facility] [place] [facility] [address] [id number] [place] [address] Jan, 2012 [facility] [place] [facility] [address] [id number] [place] [address] 17 Jan, 2013 [facility] [place] [facility] [address] [id number] [place] [address] Jan, [facility] [place] [facility] [address] [id number] [place] [address] Jan, 2012 [facility] [place] [facility] [address] [id number] [place] [address] Dec, [facility] [place] [facility] [address] [id number] [place] [address] Dec, [facility] [place] [facility] [address] [facility] [id number] [place] [address] Dec, [facility] [place] [facility] [address] [id number] [place] [address] Dec, [facility] [place] [facility] [address] [facility] [id number] [place] [address] Nov, [facility] [place] [facility] [address] [facility] [id number] [place] [address] Nov, [facility] [place] [facility] [address] [id number] [place] [address] Nov, [facility] [place] [facility] [address] [id number] [place] [address] Nov, [facility] [place] [facility] [address] [id number] [place] [address] Nov, [facility] [place] [facility] [address] [facility] [id number] [place] [address] Nov, [facility] [place] [facility] [address] [id number] [place] [address] Oct, [facility] [place] [facility] [address] [id number] [place] [address] Oct, [facility] [place] [facility] [address] [id number] [place] [address] Oct, [facility] [place] [facility] [address] [facility] [id number] [place] [address] Oct, [facility] [place] [facility] [address] [id number] [place] [address] Sep, [facility] [place] [facility] [address] [facility] [id number] [place] [address] Sep, [facility] [place] [facility] [address] [id number] [place] [address] Sep, [facility] [place] [facility] [address] [id number] [place] [address] 14 Sep, 2012 [facility] [place] [facility] [address] [id number] [place] [address] 10 Sep, 2012 [facility] [place] [facility] [address] [id number] [place] [address] August, [facility] [place] [facility] [address] [id number] [place] [address] August, [facility] [place] [facility] [address] [id number] [place] [address] Jul, [facility] [place] [facility] [address] [id number] [place] [address] Jul, [facility] [place] [facility] [address] [id number] [place] [address] 15 Jul, 2012 [facility] [place] [facility] [address] [id number] [place] [address] Jul, [facility] [place] [facility] [address] [id number] [place] [address] Jul, [facility] [place] [facility] [address] [id number] [place] [address] Jun, [facility] [place] [facility] [address] [id number] [place] [address] Jun, [facility] [place] [facility] [address] [id number] [place] [address] Jun, [facility] [place] [facility] [address] [id number] [place] [address] Jun, [facility] [place] [facility] [address] [id number] [place] [address] Jun, [facility] [place] [facility] [address] [id number] [place] [address] May, [facility] [place] [facility] [address] [id number] [place] [address] May, [facility] [place] [facility] [address] [id number] [place] [address] May, [facility] [place] [facility] [address] [facility] [id number] [place] [address] May, [facility] [place] [facility] [address] [id number] [place] [address] May, [facility] [place] [facility] [address] [id number] [place] [address] May, [facility] [place] [facility] [address] [id number] [place] [address] May, [facility] [place] [facility] [address] [facility] [id number] [place] [address] May, [facility] [place] [facility] [address] [id number] [place] [address] May, [facility] [place] [facility] [address] [id number] [place] [address] Apr, [facility] [place] [facility] [address] [id number] [place] [address] Apr, [facility] [place] [facility] [address] [id number] [place] [address] Apr, [facility] [place] [facility] [address] [id number] [place] [address] Apr, [facility] [address] [id number] [place] [address] Apr, [facility] [address] [id number] [place] [address] Mar, [facility] [address] [id number] [place] [address] Mar, [facility] [address] [id number] [place] [address] Mar, [facility] [address] [id number] [place] [address] Mar, [facility] [address] [id number] [place] [address] Mar, [facility] [address] [id number] [place] [address] 19 Mar, 2012 [facility] [address] [id number] [place] [address] 17 Mar, 2012 [facility] [address] [id number] [place] [address] Mar, [facility] [address] [id number] [place] [address] Mar, [facility] [address] [id number] [place] [address] Mar, [facility] [address] [id number] [place] [address] 30 Feb, 2012 [facility] [address] [id number] [place] [address] 30 Feb, 2012 [facility] [address] [id number] [place] [address] Feb, [facility] [address] [id number] [place] [address] 29 Feb, 2012 [facility] [address] [id number] [place] [address] Feb, [facility] [address] [id number] [place] [address] Feb, [facility] [address] [id number] [place] [address] Feb, [facility] [address] [id number] [place] [address] 20 Feb, 2012 [facility] [address] [id number] [place] [address] 16 Feb, 2012 [facility] [address] [id number] [place] [address] 16 Feb, 2012 [facility] [address] [id number] [place] [address] 13 Feb, 2012 [facility] [address] [id number] [place] [address] 13 Feb, 2012 [facility] [address] [id number] [place] [address] 12 Feb, 2012 [facility] [address] [id number] [place] [address] Feb, [facility] [address] [id number] [place] [address] Feb, [facility] [address] [id number] [place] [address] Feb, [facility] [address] [id number] [place] [address] Feb, [facility] [address] [id number] [place] [address] Feb, [facility] [address] [id number] [place] [address] Jan, [facility] [id number] [place] [address] Jan, [facility] [address] [id number] [place] [address] Jan, [facility] [address] [id number] [place] [address] Jan, [facility] [address] [id number] [place] [address] Jan, [facility] [address] [id number] [place] [address] Jan, [facility] [address] [id number] [place] [address] Jan, [facility] [address] [id number] [place] [address] Jan, [facility] [address] [id number] [place] [address] Jan, [facility] [address] [id number] [place] [address] Jan, [facility] [address] [id number] [place] [address] 24 Dec, 2011 [facility] [address] [id number] [place] [address] 18 Dec, 2011 [facility] [address] [facility] [id number] [place] [address] Dec, [facility] [address] [id number] [place] [address] Dec, [facility] [address] [id number] [place] [address] Nov, [facility] [address] [facility] [id number] [place] [address] Nov, [facility] [address] [id number] [place] [address] Nov, [facility] [address] [id number] [place] [address] Nov, [facility] [address] [id number] [place] [address] Nov, [facility] [address] [id number] [place] [address] Nov, [facility] [address] [id number] [place] [address] Oct, [facility] [address] [id number] [place] [address] Oct, [facility] [address] [id number] [place] [address] Oct, [facility] [address] [id number] [place] [address] Oct, [facility] [address] [id number] [place] [address] Oct, [facility] [address] [id number] [place] [address] Sep, [facility] [address] [id number] [place] [address] Sep, [facility] [address] [id number] [place] [address] Sep, [facility] [address] [id number] [place] [address] Sep, [facility] [address] [id number] [place] [address] Sep, [facility] [address] [id number] [place] [address] August, [facility] [address] [id number] [place] [address] August, [facility] [address] [id number] [place] [address] August, [facility] [address] [id number] [place] [address] August, [facility] [address] [id number] [place] [address] Jul, [facility] [address] [id number] [place] [address] 24 Jul, 2011 [facility] [address] [id number] [place] [address] Jul, [facility] [address] [id number] [place] [address] Jul, [facility] [address] [id number] [place] [address] Jul, [facility] [address] [id number] [place] [address] 12 Jul, 2011 [facility] [address] [id number] [place] [address] 11 Jul, 2011 [facility] [address] [id number] [place] [address] 10 Jul, 2011 [facility] [address] [id number] [place] [address] 09 Jul, 2011 [facility] [address] [id number] [place] [address] 07 Jul, 2011 [facility] [address] [id number] [place] [address] 05 Jul, 2011 [facility] [address] [id number] [place] [address] Jul, [facility] [address] [id number] [place] [address] Jul, [facility] [address] [id number] [place] [address] Jul, [facility] [address] [id number] [place] [address] Jun, [facility] [address] [id number] [place] [address] Jun, [facility] [address] [id number] [place] [address] Jun, [facility] [address] [id number] [place] [address] Jun, [facility] [address] [id number] [place] [address] May, [facility] [address] [id number] [place] [address] May, [facility] [address] [id number] [place] [address] May, [facility] [address] [id number] [place] [address] Apr, [facility] [address] [id number] [place] [address] Apr, [facility] [address] [id number] [place] [address] Apr, [facility] [address] [id number] [place] [address] Apr, [facility] [address] [id number] [place] [address] Apr, [facility] [address] [id number] [place] [address] Mar, [facility] [address] [id number] [place] [address] Mar, [facility] [address] [id number] [place] [address] Mar, [facility] [address] [id number] [place] [address] Mar, [facility] [address] [id number] [place] [address] 16 Mar, 2011 [facility] [address] [id number] [place] [address] Mar, [facility] [address] [id number] [place] [address] Mar, [facility] [address] [id number] [place] [address] 29 Feb, 2011 [facility] [address] [id number] [place] [address] Feb, [facility] [address] [id number] [place] [address] Feb, [facility] [address] [id number] [place] [address] Feb, [facility] [address] [id number] [place] [address] 16 Feb, 2011 [facility] [address] [id number] [place] [address] 14 Feb, 2011 [facility] [address] [id number] [place] [address] Feb, [facility] [id number] [place] [address] 31 Jan, 2011 [facility] [address] [id number] [place] [address] 31 Jan, 2011 [facility] [address] [id number] [place] [address] Jan, [facility] [address] [id number] [place] [address] 18 Jan, 2011 [facility] [address] [id number] [place] [address] 17 Jan, 2011 [facility] [address] [id number] [place] [address] 17 Jan, 2011 [facility] [address] [id number] [place] [address] 17 Jun, 2010 [facility] [address] [id number] [place] [address] 30 Mar, 2010 [facility] [address] [id number] [place] [address] 20 Mar, 2010 [facility] [address] [id number] [place] [address] 14 Mar, 2010 [facility] [address] [id number] [place] [address] 14 Mar, 2010 [facility] [address] [id number] [place] [address] 13 Mar, 2010 [facility] [address] [id number] [place] [address] 07 Mar, 2010 [facility] [address] [id number] [place] [address] 02 Mar, 2010 [facility] [address] [id number] [place] [address] Mar, [facility] [address] [id number] [place] [address] 30 Feb, 2010 [facility] [address] [id number] [place] [address] 29 Feb, 2010 [facility] [address] [id number] [place] [address] 17 Feb, 2010 [facility] [address] [id number] [place] [address] 17 Feb, 2010 [facility] [address] [id number] [place] [address] 16 Feb, 2010 [facility] [address] [id number] [place] [address] 08 Feb, 2010 [facility] [address] [id number] [place] [address] 04 Feb, 2010 [facility] [address] [id number] [place] [address] Feb, [facility] [address] [id number] [place] [address] Jan, [facility] [address] [facility] [id number] [place] [address] Jan, [facility] [address] [id number] [place] [address] Jan, [facility] [address] [id number] [place] [address] Jan, [facility] [address] [id number] [place] [address] 29 Mar, 2009 [facility] [address] [id number] [place] [address] 22 Mar, 2009 [facility] [address] [id number] [place] [address] 19 Mar, 2009 [facility] [address] [id number] [place] [address] 19 Mar, 2009 [facility] [address] [id number] [place] [address] 14 Mar, 2009 [facility] [address] [id number] [place] [address] 10 Mar, 2009 [facility] [address] [id number] [place] [address] 18 Feb, 2009 [facility] [address] [id number] [place] [address] 18 Feb, 2009 [facility] [address] [id number] [place] [address] 13 Jan, 2009 [facility] [address] [id number] [place] [address] 10 Sep, 2008 [facility] [place] [address] [facility] [id number] [place] [address] 18 May, 2008 IMMUNIZATIONS No Known Immunizations [...] Hospitalization History [facility] in [place]- Spontane ous Pneumothorax Hospitalization History [facility]- Colon resection Hospitalization History [facility] - diarrhea/ couldnt urin ate nov 2017 Hospitalization History pain /hip to foot right side 10/16/19 19
--- OUTSIDE RECORDS SUMMARY | 2019-08-28 08:59 | XMS REPORT ---
Author Author Dixon Lundberg Doctor Organization [facility] Address Unknown Phone Unavailable Care Team Providers Care Bank Worker Name Role Phone Migration, Doctor Unavailable Unavailable PROBLEMS Type Condition ICD9-CM Code NCN69-EH Code Onset Dates Condition S tatus SNOMED Code Problem HTN (hypertension) I10 Active 3 5368789 Problem Insomnia G47.00 Active 613464169 Problem Constipation K59.00 Active 6067754 8 Problem Anxiety F41.9 Active 50833820 Problem Hyperlipidemia E78.5 Active 23695 004 Problem Chronic pain G89.29 Active 4362453 1 Problem Environmental allergies Z91.09 Active 676847388 Problem Primary insomnia F51.01 Active 397 2004 Problem Chronic kidney disease, stage III (moderate) N18.3 Active 480055914 Problem Psychophysiological insomnia F51.04 A ctive 377653144 Problem Vitamin D deficiency E55.9 Active 01203661 Problem Age-related cataract of both eyes, unspecified age-related cataract type H25.9 Active 21560019 Problem Thoracic back pain, unspecif ied back pain laterality, unspecified chronicity M54.6 Active 497741165 Problem Vision loss H54.7 Active 18452030 1 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 92204853 Problem Schizophrenia, unspecified type F20.9 Active 81243467 Problem Psychophysiological insomnia F51.04 A ctive [id number] ALLERGIES No Information ENCOUNTERS Encounter Location Date Diagnosis [id number] [place] [address] May, Anxiety F41.9 and Thoracic back pain, un specified back pain laterality, unspecified chronicity M54.6 [facility] [facility] [id number] [place] [address] May, [address] [id number] [place] [address] Apr, [place] [address] [address] Apr, [place] [address] [address] Apr, Psychophysiological insomnia F51.04 [place] [address] [address] 15 Apr, 2019 Thoracic back pain, unspecified back hao n laterality, unspecified chronicity M54.6 [place] [address] [address] 10 Apr, 2019 Thoracic back pain, unspecified back hao n laterality, unspecified chronicity M54.6 [place] [address] [address] 10 Apr, 2019 Anxiety F41.9 [place] [address] [address] Apr, Psychophysiological insomnia F51.04 [place] [address] [address] 30 Mar, 2019 Encounter for Medicare annual [...] both eyes, unspecified age-related cataract type H25.9 [place] [address] [address] Mar, Thoracic back pain, unspecified back hao n laterality, unspecified chronicity M54.6 [place] [address] [address] Mar, Psychophysiological insomnia F51.04 [place] [address] [address] Mar, Thoracic back pain, unspecified back hao n laterality, unspecified chronicity M54.6 and Anxiety F41.9 [facility] [address] [address] Mar, Psychophysiological insomnia F51.04 [facility] [address] [address] Mar, [facility] [address] [address] Mar, Psychophysiological insomnia F51.04 [facility] [address] [address] Mar, [place] [address] [address] Feb, [place] [address] [address] Feb, Thoracic back pain, unspecified back hao n laterality, unspecified chronicity M54.6 [place] [address] [address] Feb, Anxiety F41.9 and Thoracic back pain, un specified back pain laterality, unspecified chronicity M54.6 [place] [address] [address] Feb, Insomnia G47.00 ; HTN (hypertension) I10 and Constipation K59.00 [place] [address] [address] Feb, [facility] [address] [address] Jan, Thoracic back pain, unspecified back hao n laterality, unspecified chronicity M54.6 [facility] [address] [address] Jan, Anxiety F41.9 [place] [address] [address] Jan, Anxiety F41.9 [facility] [address] [address] Jan, Anxiety F41.9 and Thoracic back pain, un specified back pain laterality, unspecified chronicity M54.6 [facility] [id number] [place] [address] Jan, [facility] [id number] [place] [address] Jan, [facility] [address] [address] Dec, Thoracic back pain, unspecified back hao n laterality, unspecified chronicity M54.6 [facility] [address] [address] Dec, Thoracic back pain, unspecified back hao n laterality, unspecified chronicity M54.6 [facility] [id number] [place] [address] Nov, Thoracic back pain, unspecified back hao n laterality, unspecified chronicity M54.6 [facility] [address] [address] Nov, Anxiety F41.9 and Thoracic back pain, un specified back pain laterality, unspecified chronicity M54.6 [facility] [id number] [place] [address] Nov, [facility] [address] [address] Nov, [facility] [address] [address] Nov, [facility] [address] [address] Oct, Thoracic back pain, unspecified back hao n laterality, unspecified chronicity M54.6 [facility] [id number] [place] [address] Oct, Anxiety F41.9 and Thoracic back pain, un specified back pain laterality, unspecified chronicity M54.6 [facility] [id number] [place] [address] Oct, Schizophrenia, unspecified type F20.9 an d Acute kidney injury N17.9 [facility] [id number] [place] [address] Oct, [facility] [id number] [place] [address] Oct, [facility] [id number] [place] [address] Oct, Thoracic back pain, unspecified back hao n laterality, unspecified chronicity M54.6 [facility] [id number] [place] [address] Oct, [facility] [id number] [place] [address] Oct, [facility] [address] [address] Sep, Anxiety F41.9 [facility] [id number] [place] [address] Sep, [facility] [address] [address] Sep, Thoracic back pain, unspecified back hao n laterality, unspecified chronicity M54.6 [facility] [id number] [place] [address] Sep, [facility] [id number] [place] [address] Sep, [facility] [address] [address] Sep, [facility] [address] [address] Sep, [facility] [id number] [place] [address] Sep, [facility] [address] [address] Sep, [facility] [address] [address] Sep, Chronic pain G89.29 ; Chronic kidney dis ease, stage III (moderate) N18.3 ; Hyperlipidemia E78.5 and Insomnia G47.00 [facility] [address] [address] Sep, Thoracic back pain, unspecified back hao n laterality, unspecified chronicity M54.6 [place] [address] [address] August, Anxiety F41.9 [place] [address] [address] August, Thoracic back pain, unspecified back hao n laterality, unspecified chronicity M54.6 and Anxiety F41.9 [place] [address] [address] August, 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 [place] [address] [address] August, 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 [place] [address] [address] August, [facility] [address] [address] August, [place] [address] [address] August, Thoracic back pain, unspecified back hao n laterality, unspecified chronicity M54.6 [facility] [address] [address] August, [place] [address] [address] August, Anxiety F41.9 and Thoracic back pain, un specified back pain laterality, unspecified chronicity M54.6 [place] [address] [address] Jul, [facility] [address] [address] Jul, Thoracic back pain, unspecified back hao n laterality, unspecified chronicity M54.6 [facility] [id number] Jun, Anxiety F41.9 and Thoracic back pain, un specified back pain laterality, unspecified chronicity M54.6 [place] [address] [address] Jun, Anxiety F41.9 and Thoracic back pain, un specified back pain laterality, unspecified chronicity M54.6 [place] [address] [address] Jun, Thoracic back pain, unspecified back hao n laterality, unspecified chronicity M54.6 [place] [address] [address] Jun, Anxiety F41.9 and Thoracic back pain, un specified back pain laterality, unspecified chronicity M54.6 [place] [address] [address] May, [place] [address] [address] May, [place] [address] [address] May, [place] [address] [address] May, Anxiety F41.9 and Encounter for medicati on monitoring Z51.81 [place] [address] [address] May, Anxiety F41.9 and Thoracic back pain, un specified back pain laterality, unspecified chronicity M54.6 [place] [address] [address] Apr, Hyperlipidemia 272.4 [place] [address] [address] Apr, Chronic pain G89.29 ; Anxiety F41.9 ; Ce rvical radiculopathy M54.12 and Vision loss H54.7 [place] [address] [address] Apr, [place] [address] [address] Apr, Anxiety F41.9 and Thoracic back pain, un specified back pain laterality, unspecified chronicity M54.6 [place] [address] [address] Mar, [place] [address] [address] Mar, Anxiety F41.9 and Thoracic back pain, un specified back pain laterality, unspecified chronicity M54.6 [place] [address] [address] Feb, Anxiety F41.9 and Thoracic back pain, un specified back pain laterality, unspecified chronicity M54.6 [place] [address] [address] 07 Feb, 2018 Thoracic back pain, unspecified back hao n laterality, unspecified chronicity M54.6 [place] [address] [address] Jan, [place] [address] [address] Jan, Anxiety F41.9 and Thoracic back pain, un specified back pain laterality, unspecified chronicity M54.6 [place] [address] [address] Dec, Diarrhea of presumed infectious origin R 19.7 [place] [address] [address] Dec, Diarrhea of presumed infectious origin R 19.7 [place] [address] [address] 18 Dec, 2017 Thoracic back pain, unspecified back hao n laterality, unspecified chronicity M54.6 [place] [address] [address] 17 Dec, 2017 [place] [address] [address] Dec, Anxiety F41.9 and Thoracic back pain, un specified back pain laterality, unspecified chronicity M54.6 [place] [address] [address] 13 Dec, 2017 Diarrhea of presumed infectious origin R 19.7 [place] [address] [address] Dec, [place] [address] [address] Dec, Anxiety F41.9 and Thoracic back pain, un specified back pain laterality, unspecified chronicity M54.6 [place] [address] [address] Dec, Anxiety F41.9 and Thoracic back pain, un specified back pain laterality, unspecified chronicity M54.6 [facility] [address] [place] [id number] Dec, Diarrhea of presumed infectious origin R 19.7 ; Anxiety F41.9 ; Thoracic back pain, unspecified back pain laterality, unspecified chronicity M54.6 and HTN (hypertension) I10 [place] [address] [address] Dec, Anxiety F41.9 [facility] [address] [place] [id number] Dec, Anxiety F41.9 ; Diarrhea of presumed inf ectious origin R19.7 ; Generalized abdominal pain R10.84 and Localized edema R60.0 [place] [address] [id number] Nov, [facility] [address] [place] [address] Nov, Anxiety F41.9 ; Urinary retention R33.9 ; Diarrhea of presumed infectious origin R19.7 ; Weakness R53.1 ; Acute kidney failure, unspecified N17.9 ; Chronic kidney disease, stage III (moderate) N18.3 and Thoracic back pain, unspecified back pain laterality, unspecified chronicity M54.[address] [address] Oct, Thoracic back pain, unspecified back hao n laterality, unspecified chronicity M54.6 and Anxiety F41.[address] [address] Sep, Thoracic back pain, unspecified back hao n laterality, unspecified chronicity M54.6 and Anxiety F41.[address] [address] Sep, Thoracic back pain, unspecified back hao n laterality, unspecified chronicity M54.6 ; Anxiety F41.9 and Encounter for medication monitoring Z51.[address] [address] August, [address] [address] August, Thoracic back pain, unspecified back hao n laterality, unspecified chronicity M54.6 and Anxiety F41.[address] [address] August, Hyperlipidemia E78.5 and HTN (hypertensi on) I10 [address] [address] August, [address] [address] August, Medicare welcome exam Z00.00 ; Chronic k idney failure N18.9 ; Anxiety F41.9 ; Chronic pain G89.29 ; Insomnia G47.00 ; Hyperlipidemia E78.5 ; HTN (hypertension) I10 and Thoracic back pain, unspecified back pain laterality, unspecified chronicity M54.6 [place] [address] [address] Jul, [place] [address] [address] Jul, [place] [address] [address] Jul, [place] [address] [address] Jul, Anxiety F41.9 [place] [address] [address] Jul, Thoracic back pain, unspecified back hao n laterality, unspecified chronicity M54.6 and Anxiety F41.9 [place] [address] [address] Jun, Thoracic back pain, unspecified back hao n laterality, unspecified chronicity M54.6 and Anxiety F41.9 [place] [address] [address] May, Thoracic back pain, unspecified back hao n laterality, unspecified chronicity M54.6 and Anxiety F41.9 [place] [address] [address] Apr, Thoracic back pain, unspecified back hao n laterality, unspecified chronicity M54.6 and Anxiety F41.9 [place] [address] [address] Mar, [place] [address] [address] Mar, Thoracic back pain, unspecified back hao n laterality, unspecified chronicity M54.6 and Anxiety F41.9 [place] [address] [address] Mar, Thoracic back pain, unspecified back hao n laterality, unspecified chronicity M54.6 ; HTN (hypertension) I10 ; Hyperlipidemia E78.5 and Anxiety F41.9 [facility] [address] [address] Feb, Thoracic back pain, unspecified back hao n laterality, unspecified chronicity M54.6 and Anxiety F41.9 [place] [address] [address] Nov, [place] [address] [address] Oct, [place] [address] [address] Oct, Thoracic back pain, unspecified back hao n laterality, unspecified chronicity M54.6 [place] [address] [address] Oct, HTN (hypertension) I10 ; Constipation K5 9.00 ; Hyperlipidemia E78.5 ; Thoracic back pain, unspecified back pain laterality, unspecified chronicity M54.6 ; Chronic pain G89.29 ; Anxiety F41.9 ; Chronic kidney failure N18.9 ; Environmental allergies Z91.09 ; Vitamin D deficiency E55.9 and Primary insomnia F51.01 [place] [address] [address] Sep, Anxiety F41.9 [place] [address] [address] Sep, [place] [address] [address] August, Anxiety F41.9 [place] [address] [address] August, [place] [address] [address] Jul, Anxiety F41.9 [place] [address] [address] Jul, [place] [address] [address] Jun, Anxiety F41.9 [facility] [address] [address] Jun, [facility] [address] [address] May, [facility] [address] [address] May, [facility] [address] [address] May, [facility] [address] [address] Apr, [facility] [address] [address] Apr, [facility] [address] [address] Apr, Anxiety F41.9 [facility] [address] [address] Apr, Anxiety F41.9 [facility] [address] [address] Apr, [facility] [address] [address] Mar, HTN (hypertension) I10 ; Tremor R25.1 ; Hypercholesterolemia E78.0 ; Constipation K59.00 ; Chronic pain G89.29 ; Hyperlipidemia E78.5 ; Insomnia G47.00 ; Anxiety F41.9 and Thoracic back pain, unspecified back pain laterality, unspecified chronicity M54.6 [facility] [address] [address] Mar, Tremor R25.1 ; HTN (hypertension) I10 ; Hypercholesterolemia E78.0 ; Constipation K59.00 ; Chronic pain G89.29 ; Hyperlipidemia E78.5 ; Insomnia G47.00 ; Anxiety F41.9 and Thoracic back pain, unspecified back pain laterality, unspecified chronicity M54.6 [facility] [id number] [place] [address] Mar, [facility] [id number] [place] [address] Mar, [facility] [id number] [place] [address] Feb, [facility] [id number] [place] [address] Jan, [facility] [id number] [place] [address] Jan, [facility] [id number] [place] [address] Dec, [facility] [id number] [place] [address] Nov, [facility] [id number] [place] [address] Nov, [facility] [id number] [place] [address] Oct, Anxiety F41.9 [facility] [id number] [place] [address] Oct, Chronic pain G89.29 [facility] [id number] [place] [address] Sep, [facility] [id number] [place] [address] Sep, [facility] [id number] [place] [address] Sep, [facility] [id number] [place] [address] Sep, [facility] [id number] [place] [address] Sep, Chronic pain syndrome G89.4 [facility] [id number] [place] [address] Sep, HTN (hypertension) I10 ; Chronic pain G8 9.29 ; Hypercholesterolemia E78.0 ; Chronic kidney failure N18.9 ; Constipation, unspecified constipation type K59.00 ; Anxiety F41.9 and Thoracic back pain, unspecified back pain laterality, unspecified chronicity M54.6 [facility] [address] [address] August, Chronic pain syndrome G89.4 [place] [address] [address] August, Chronic pain syndrome G89.4 [place] [address] [address] Jul, Anxiety disorder, unspecified F41.9 and Chronic pain syndrome G89.4 [place] [address] [address] Jul, Insomnia, unspecified G47.00 and Chronic pain syndrome G89.4 [place] [address] [address] Jul, Allergic rhinitis J30.9 [place] [address] [address] Jul, Constipation, unspecified K59.00 [place] [address] [address] Jul, [place] [address] [address] Jun, [place] [address] [address] Jun, [place] [address] [address] Jun, [place] [address] [address] Jun, [place] [address] [address] Jun, [place] [address] [address] Jun, [facility] [address] [address] May, [facility] [address] [address] May, [facility] [address] [address] May, Anxiety F41.9 ; Insomnia G47.00 ; Hyperl ipidemia E78.5 ; Chronic pain G89.29 ; HTN (hypertension) I10 ; Environmental allergies V15.09 and Constipation 564.00 [place] [address] [address] Apr, [facility] [address] [address] Apr, [place] [address] [address] Apr, [facility] [address] [address] Mar, [place] [address] [address] Mar, [facility] [address] [address] Mar, [place] [address] [address] Feb, [facility] [address] [address] Feb, [facility] [address] [address] Feb, [facility] [address] [address] Jan, HTN (hypertension) I10 ; Constipation K5 9.00 ; Chronic pain G89.29 ; Hyperlipidemia E78.5 ; Hypercholesterolemia E78.0 ; Insomnia G47.00 and Anxiety F41.9 [facility] [address] [address] Jan, [facility] [address] [address] Dec, [facility] [address] [address] Nov, [facility] [address] [address] Oct, Chronic kidney disease, unspecified 585. 9 ; Chronic pain syndrome 338.4 ; Hyperlipidemia 272.4 and Essential hypertension 401.9 [facility] [address] [address] Oct, Chronic kidney disease 585.9 [facility] [address] [address] Oct, [facility] [address] [address] Oct, Chronic kidney disease, unspecified 585. 9 ; Hypercalcemia 275.42 ; Hyperlipidemia 272.4 ; Essential hypertension 401.9 ; Chronic pain syndrome 338.4 ; Insomnia 780.52 ; Constipation 564.00 ; Environmental allergies V15.09 and Anxiety 300.00 [facility] [address] [address] Oct, Chronic kidney disease 585.9 [facility] [address] [address] Oct, [facility] [address] [address] Oct, Chronic kidney disease 585.9 and Hyperli pidemia 272.4 [facility] [address] [address] Oct, [facility] [address] [address] Oct, [facility] [address] [address] Sep, [facility] [address] [id number] [place] [address] Sep, [facility] [address] [id number] [place] [address] Sep, Chronic kidney disease 585.9 and Hyperli pidemia 272.4 [facility] [address] [id number] [place] [address] Sep, [facility] [address] [id number] [place] [address] August, [facility] [address] [id number] [place] [address] August, [facility] [address] [id number] [place] [address] Jul, [facility] [address] [facility] [id number] [place] [address] Jul, [facility] [place] [facility] [id number] [place] [address] Jun, [facility] [place] [facility] [address] [id number] [place] [address] Jun, [facility] [place] [facility] [id number] [place] [address] Jun, [facility] [place] [facility] [address] [id number] [place] [address] Jun, [facility] [place] [facility] [address] [id number] [place] [address] Jun, [facility] [place] [facility] [address] [id number] [place] [address] Jun, [facility] [place] [facility] [id number] [place] [address] Jun, [facility] [place] [facility] [address] [id number] [place] [address] Jun, [facility] [place] [facility] [address] [id number] [place] [address] May, [facility] [place] [facility] [address] [id number] [place] [address] May, [facility] [place] [facility] [address] [id number] [place] [address] May, [facility] [place] [facility] [address] [id number] [place] [address] May, [facility] [place] [facility] [address] [id number] [place] [address] Apr, [facility] [place] [facility] [address] [id number] [place] [address] Apr, [facility] [place] [facility] [address] [id number] [place] [address] Apr, [facility] [place] [facility] [address] [id number] [place] [address] Apr, [facility] [place] [facility] [address] [id number] [place] [address] Apr, [facility] [place] [facility] [address] [id number] [place] [address] Apr, [facility] [place] [facility] [address] [id number] [place] [address] Apr, [facility] [place] [facility] [address] [id number] [place] [address] Apr, [facility] [place] [facility] [address] [id number] [place] [address] Apr, [facility] [place] [facility] [address] [id number] [place] [address] Apr, [facility] [place] [facility] [address] [id number] [place] [address] Apr, [facility] [place] [facility] [address] [id number] [place] [address] Mar, [facility] [place] [facility] [address] [id number] [place] [address] Mar, [facility] [place] [facility] [address] [id number] [place] [address] Feb, [facility] [place] [facility] [address] [id number] [place] [address] Feb, [facility] [place] [facility] [address] [id number] [place] [address] Feb, [facility] [place] [facility] [address] [id number] [place] [address] Feb, [facility] [place] [facility] [address] [id number] [place] [address] Feb, [facility] [place] [facility] [address] [id number] [place] [address] Feb, [facility] [place] [facility] [address] [id number] [place] [address] Feb, [facility] [place] [facility] [address] [id number] [place] [address] Feb, [facility] [place] [facility] [address] [id number] [place] [address] Feb, [facility] [place] [facility] [address] [id number] [place] [address] Feb, [facility] [place] [facility] [address] [id number] [place] [address] Jan, [facility] [place] [facility] [address] [id number] [place] [address] Jan, [facility] [place] [facility] [address] [id number] [place] [address] Jan, [facility] [place] [facility] [address] [id number] [place] [address] Jan, [facility] [place] [facility] [address] [id number] [place] [address] Jan, [facility] [place] [facility] [address] [id number] [place] [address] Jan, [facility] [place] [facility] [address] [id number] [place] [address] Jan, [facility] [place] [facility] [address] [id number] [place] [address] 17 Jan, 2014 [facility] [place] [facility] [address] [id number] [place] [address] 16 Jan, 2014 [facility] [place] [facility] [address] [facility] [place] [id number] [place] [address] Jan, [facility] [place] [facility] [address] [id number] [place] [address] Jan, [facility] [place] [facility] [address] [id number] [place] [address] Dec, [facility] [place] [facility] [address] [facility] [place] [id number] [place] [address] Dec, [facility] [place] [facility] [address] [id number] [place] [address] Dec, [facility] [place] [facility] [address] [id number] [place] [address] Dec, [facility] [place] [facility] [address] [id number] [place] [address] Dec, [facility] [place] [facility] [address] [id number] [place] [address] Dec, [facility] [place] [facility] [address] [id number] [place] [address] Dec, [facility] [place] [facility] [address] [id number] [place] [address] Dec, [facility] [place] [facility] [address] [id number] [place] [address] Nov, [facility] [place] [facility] [address] [id number] [place] [address] Nov, [facility] [place] [facility] [address] [id number] [place] [address] Nov, [facility] [place] [facility] [address] [id number] [place] [address] Nov, [facility] [place] [facility] [address] [id number] [place] [address] Nov, [facility] [place] [facility] [address] [facility] [place] [id number] [place] [address] Nov, [facility] [place] [facility] [address] [id number] [place] [address] Nov, [facility] [place] [facility] [address] [id number] [place] [address] Nov, [facility] [place] [facility] [address] [id number] [place] [address] Oct, [facility] [place] [facility] [address] [facility] [place] [id number] [place] [address] Oct, [facility] [place] [facility] [address] [id number] [place] [address] Oct, [facility] [place] [facility] [address] [id number] [place] [address] Oct, [facility] [place] [facility] [address] [id number] [place] [address] Sep, [facility] [place] [facility] [address] [id number] [place] [address] Sep, [facility] [place] [facility] [address] [id number] [place] [address] Sep, [facility] [place] [facility] [address] [id number] [place] [address] Sep, [facility] [place] [facility] [address] [id number] [place] [address] Sep, [facility] [place] [facility] [address] [id number] [place] [address] Sep, [facility] [place] [facility] [address] [id number] [place] [address] Sep, [facility] [place] [facility] [address] [id number] [place] [address] Sep, [facility] [place] [facility] [address] [id number] [place] [address] August, [facility] [place] [facility] [address] [id number] [place] [address] August, [facility] [place] [facility] [address] [facility] [place] [id number] [facility] [place] [address] August, [facility] [place] [facility] [address] [facility] [place] [id number] [facility] [place] [address] August, [facility] [place] [facility] [address] [id number] [place] [address] August, [facility] [place] [facility] [address] [id number] [facility] [place] [address] August, [facility] [place] [facility] [address] [facility] [place] [id number] [place] [address] August, [facility] [place] [facility] [address] [id number] [place] [address] August, [facility] [place] [facility] [address] [id number] [place] [address] August, [facility] [place] [facility] [address] [id number] [place] [address] August, [facility] [place] [facility] [address] [facility] [place] [id number] [place] [address] Jul, [facility] [place] [facility] [address] [id number] [facility] [place] [address] Jul, [facility] [place] [facility] [address] [id number] [place] [address] Jul, [facility] [place] [facility] [address] [id number] [place] [address] Jul, [facility] [place] [facility] [address] [facility] [place] [id number] [facility] [facility] [place] [address] Jul, [facility] [place] [facility] [address] [facility] [place] [id number] [place] [address] Jul, [facility] [place] [facility] [address] [id number] [place] [address] Jul, [facility] [place] [facility] [address] [id number] [facility] [place] [address] Jul, [facility] [place] [facility] [address] [id number] [place] [address] Jun, [facility] [place] [facility] [address] [facility] [place] [id number] [place] [address] Jun, [facility] [place] [facility] [address] [facility] [place] [id number] [place] [address] Jun, [facility] [place] [facility] [address] [id number] [place] [address] Jun, [facility] [place] [facility] [address] [facility] [place] [id number] [place] [address] Jun, [facility] [place] [facility] [address] [facility] [place] [id number] [place] [address] Jun, [facility] [place] [facility] [address] [id number] [place] [address] May, [facility] [place] [facility] [address] [id number] [place] [address] May, [facility] [place] [facility] [address] [id number] [place] [address] May, [facility] [place] [facility] [address] [facility] [place] [id number] [place] [address] May, [facility] [place] [facility] [address] [id number] [place] [address] May, [facility] [place] [facility] [address] [id number] [place] [address] May, [facility] [place] [facility] [address] [id number] [place] [address] May, [facility] [place] [facility] [address] [facility] [place] [id number] [place] [address] Apr, [facility] [place] [facility] [address] [id number] [place] [address] Apr, [facility] [place] [facility] [address] [id number] [place] [address] Apr, [facility] [place] [facility] [address] [id number] [place] [address] Apr, [facility] [address] [id number] [place] [address] Apr, [facility] [place] [facility] [address] [id number] [place] [address] Apr, [facility] [place] [facility] [address] [id number] [place] [address] Mar, [facility] [place] [facility] [address] [id number] [place] [address] Mar, [facility] [place] [facility] [address] [id number] [place] [address] Mar, [facility] [place] [facility] [address] [id number] [place] [address] Mar, [facility] [place] [facility] [address] [id number] [place] [address] Mar, [facility] [place] [facility] [address] [id number] [place] [address] Mar, [facility] [place] [facility] [address] [id number] [place] [address] Mar, [facility] [place] [facility] [address] [id number] [place] [address] Mar, [facility] [place] [facility] [address] [id number] [place] [address] Mar, [facility] [place] [facility] [address] [id number] [place] [address] Mar, [facility] [place] [facility] [address] [id number] [place] [address] Feb, [facility] [place] [facility] [address] [id number] [place] [address] Feb, [facility] [place] [facility] [address] [id number] [place] [address] Feb, [facility] [place] [facility] [address] [id number] [place] [address] Feb, [facility] [place] [facility] [address] [id number] [place] [address] 14 Feb, 2013 [facility] [place] [facility] [address] [facility] [place] [id number] [place] [address] 14 Feb, 2013 [facility] [place] [facility] [address] [facility] [place] [id number] [place] [address] Feb, [facility] [place] [facility] [address] [id number] [place] [address] Feb, [facility] [place] [facility] [address] [id number] [place] [address] 08 Feb, 2013 [facility] [place] [facility] [address] [facility] [place] [id number] [place] [address] Feb, [facility] [place] [facility] [address] [id number] [place] [address] Jan, [facility] [place] [facility] [address] [id number] [place] [address] Jan, [facility] [place] [facility] [address] [id number] [place] [address] Jan, [facility] [place] [facility] [address] [id number] [place] [address] Jan, [facility] [place] [facility] [address] [id number] [place] [address] Jan, [facility] [place] [facility] [address] [id number] [place] [address] Jan, [facility] [place] [facility] [address] [id number] [place] [address] Jan, [facility] [place] [facility] [address] [facility] [place] [id number] [place] [address] Jan, [facility] [place] [facility] [address] [id number] [place] [address] Jan, [facility] [place] [facility] [address] [id number] [place] [address] Dec, [facility] [place] [facility] [address] [id number] [place] [address] Dec, [facility] [place] [facility] [address] [id number] [facility] [place] [address] Dec, [facility] [place] [facility] [address] [id number] [place] [address] Dec, [facility] [place] [facility] [address] [facility] [place] [id number] [facility] [facility] [place] [address] Nov, [facility] [place] [facility] [address] [id number] [place] [address] Nov, [facility] [place] [facility] [address] [facility] [place] [id number] [facility] [facility] [place] [address] Nov, [facility] [place] [facility] [address] [facility] [place] [id number] [place] [address] Nov, [facility] [place] [facility] [address] [id number] [place] [address] Nov, [facility] [place] [facility] [address] [id number] [place] [address] Nov, [facility] [place] [facility] [address] [id number] [place] [address] Oct, [facility] [place] [facility] [address] [facility] [place] [id number] [place] [address] Oct, [facility] [place] [facility] [address] [id number] [place] [address] Oct, [facility] [place] [facility] [address] [id number] [place] [address] Oct, [facility] [place] [facility] [address] [id number] [place] [address] Sep, [facility] [place] [facility] [address] [id number] [place] [address] Sep, [facility] [place] [facility] [address] [id number] [place] [address] Sep, [facility] [place] [facility] [address] [facility] [place] [id number] [place] [address] 14 Sep, 2012 [facility] [place] [facility] [address] [id number] [place] [address] Sep, [facility] [address] [id number] [place] [address] August, [facility] [place] [facility] [address] [id number] [place] [address] August, [facility] [place] [facility] [address] [id number] [place] [address] Jul, [facility] [place] [facility] [address] [id number] [place] [address] Jul, [facility] [place] [facility] [address] [id number] [place] [address] Jul, [facility] [place] [facility] [address] [id number] [place] [address] Jul, [facility] [place] [facility] [address] [id number] [place] [address] Jul, [facility] [place] [facility] [address] [id number] [place] [address] Jun, [facility] [place] [facility] [address] [id number] [place] [address] Jun, [facility] [place] [facility] [address] [id number] [place] [address] Jun, [facility] [place] [facility] [address] [id number] [place] [address] Jun, [facility] [place] [facility] [address] [id number] [place] [address] Jun, [facility] [place] [facility] [address] [id number] [place] [address] May, [facility] [place] [facility] [address] [id number] [place] [address] May, [facility] [place] [facility] [address] [id number] [place] [address] May, [facility] [place] [facility] [address] [id number] [place] [address] May, [facility] [place] [facility] [address] [id number] [place] [address] 20 May, 2012 [facility] [address] [id number] [place] [address] 14 May, 2012 [facility] [address] [id number] [place] [address] May, [facility] [address] [id number] [place] [address] 08 May, 2012 [facility] [address] [id number] [place] [address] May, [facility] [address] [id number] [place] [address] Apr, [facility] [address] [id number] [place] [address] Apr, [facility] [address] [id number] [place] [address] Apr, [facility] [address] [id number] [place] [address] Apr, [facility] [address] [id number] [place] [address] Apr, [facility] [address] [id number] [place] [address] Mar, [facility] [address] [id number] [place] [address] Mar, [facility] [address] [id number] [place] [address] Mar, [facility] [address] [id number] [place] [address] Mar, [facility] [id number] [place] [address] Mar, [facility] [address] [id number] [place] [address] Mar, [facility] [id number] [place] [address] Mar, [facility] [address] [id number] [place] [address] 17 Mar, 2012 [facility] [address] [id number] [place] [address] Mar, [facility] [address] [id number] [place] [address] Mar, [facility] [address] [id number] [place] [address] Feb, [facility] [address] [id number] [place] [address] Feb, [facility] [address] [id number] [place] [address] Feb, [facility] [address] [id number] [place] [address] Feb, [facility] [address] [id number] [place] [address] Feb, [facility] [address] [id number] [place] [address] Feb, [facility] [address] [id number] [place] [address] Feb, [facility] [address] [id number] [place] [address] Feb, [facility] [address] [id number] [place] [address] 16 Feb, 2012 [facility] [address] [id number] [place] [address] 16 Feb, 2012 [facility] [address] [id number] [place] [address] 13 Feb, 2012 [facility] [address] [id number] [place] [address] 13 Feb, 2012 [facility] [address] [id number] [place] [address] 12 Feb, 2012 [facility] [address] [id number] [place] [address] Feb, [facility] [address] [id number] [place] [address] Feb, [facility] [address] [id number] [place] [address] Feb, [facility] [address] [id number] [place] [address] Feb, [facility] [address] [id number] [place] [address] Feb, [facility] [address] [id number] [place] [address] Jan, [facility] [address] [id number] [place] [address] Jan, [facility] [address] [id number] [place] [address] Jan, [facility] [address] [id number] [place] [address] Jan, [facility] [address] [id number] [place] [address] Jan, [facility] [address] [id number] [place] [address] Jan, [facility] [address] [id number] [place] [address] Jan, [facility] [address] [id number] [place] [address] Jan, [facility] [address] [id number] [place] [address] Jan, [facility] [address] [id number] [place] [address] 04 Jan, 2012 [facility] [address] [id number] [place] [address] 24 Dec, 2011 [facility] [address] [id number] [place] [address] 18 Dec, 2011 [facility] [address] [facility] [place] [id number] [facility] [place] [address] 04 Dec, 2011 [facility] [address] [id number] [place] [address] Dec, [facility] [address] [id number] [place] [address] Nov, [facility] [address] [id number] [place] [address] Nov, [facility] [address] [id number] [place] [address] Nov, [facility] [address] [id number] [place] [address] Nov, [facility] [address] [id number] [place] [address] Nov, [facility] [address] [id number] [place] [address] Nov, [facility] [address] [id number] [place] [address] Oct, [facility] [address] [id number] [place] [address] Oct, [facility] [address] [id number] [place] [address] Oct, [facility] [address] [id number] [place] [address] Oct, [facility] [address] [id number] [place] [address] Oct, [facility] [address] [id number] [place] [address] Sep, [facility] [address] [facility] [facility] [id number] [place] [address] Sep, [facility] [address] [id number] [place] [address] Sep, [facility] [address] [id number] [place] [address] Sep, [facility] [address] [id number] [place] [address] Sep, [facility] [address] [id number] [place] [address] August, [facility] [address] [id number] [place] [address] August, [facility] [address] [id number] [place] [address] August, [facility] [address] [id number] [place] [address] August, [facility] [address] [id number] [place] [address] Jul, [facility] [address] [id number] [place] [address] Jul, [facility] [address] [id number] [place] [address] Jul, [facility] [address] [id number] [place] [address] Jul, [facility] [address] [id number] [place] [address] Jul, [facility] [address] [id number] [place] [address] Jul, [facility] [address] [id number] [place] [address] Jul, [facility] [address] [id number] [place] [address] 10 Jul, 2011 [facility] [address] [id number] [place] [address] 09 Jul, 2011 [facility] [address] [id number] [place] [address] Jul, [facility] [address] [id number] [place] [address] 05 Jul, 2011 [facility] [address] [id number] [place] [address] Jul, [facility] [address] [facility] [place] [id number] [facility] [place] [address] Jul, [facility] [address] [facility] [place] [id number] [place] [address] Jul, [facility] [address] [id number] [place] [address] Jun, [facility] [address] [id number] [place] [address] Jun, [facility] [address] [facility] [place] [id number] [facility] [place] [address] Jun, [facility] [address] [id number] [place] [address] Jun, [facility] [address] [id number] [place] [address] May, [facility] [address] [id number] [place] [address] May, [facility] [address] [id number] [place] [address] May, [facility] [address] [id number] [place] [address] Apr, [facility] [address] [id number] [place] [address] Apr, [facility] [address] [id number] [place] [address] Apr, [facility] [address] [facility] [place] [id number] [place] [address] Apr, [facility] [address] [id number] [place] [address] Apr, [facility] [address] [id number] [place] [address] Mar, [facility] [address] [id number] [place] [address] Mar, [facility] [address] [id number] [place] [address] Mar, [facility] [address] [id number] [place] [address] Mar, [facility] [address] [id number] [place] [address] 16 Mar, 2011 [facility] [address] [id number] [place] [address] Mar, [facility] [address] [id number] [place] [address] 05 Mar, 2011 [facility] [address] [id number] [place] [address] Feb, [facility] [address] [id number] [place] [address] Feb, [facility] [id number] [place] [address] Feb, [facility] [id number] [place] [address] Feb, [facility] [address] [id number] [place] [address] 16 Feb, 2011 [facility] [id number] [place] [address] 14 Feb, 2011 [facility] [address] [id number] [place] [address] Feb, [facility] [address] [id number] [place] [address] 31 Jan, 2011 [facility] [address] [id number] [place] [address] 31 Jan, 2011 [facility] [id number] [place] [address] 31 Jan, 2011 [facility] [address] [id number] [place] [address] 18 Jan, 2011 [facility] [address] [id number] [place] [address] 17 Jan, 2011 [facility] [address] [facility] [place] [id number] [place] [address] 17 Jan, 2011 [facility] [address] [id number] [place] [address] 17 Jun, 2010 [facility] [address] [id number] [place] [address] 30 Mar, 2010 [facility] [address] [id number] [place] [address] 20 Mar, 2010 [facility] [address] [facility] [place] [id number] [place] [address] 14 Mar, 2010 [facility] [address] [id number] [place] [address] 14 Mar, 2010 [facility] [address] [id number] [place] [address] 13 Mar, 2010 [facility] [address] [id number] [place] [address] 07 Mar, 2010 [facility] [address] [id number] [place] [address] 02 Mar, 2010 [facility] [address] [id number] [place] [address] Mar, [facility] [address] [id number] [place] [address] 30 Feb, 2010 [facility] [address] [id number] [place] [address] 29 Feb, 2010 [facility] [address] [id number] [place] [address] 17 Feb, 2010 [facility] [address] [id number] [place] [address] 17 Feb, 2010 [facility] [address] [id number] [place] [address] 16 Feb, 2010 [facility] [address] [id number] [place] [address] 08 Feb, 2010 [facility] [address] [id number] [place] [address] Feb, [facility] [address] [id number] [place] [address] Feb, [facility] [address] [id number] [place] [address] Jan, [facility] [address] [id number] [place] [address] Jan, [facility] [address] [id number] [place] [address] Jan, [facility] [address] [id number] [place] [address] Jan, [facility] [address] [id number] [place] [address] Mar[facility] [address] [id number] [place] [address] Mar, [facility] [address] [id number] [place] [address] Mar, [facility] [address] [id number] [place] [address] Mar, [facility] [address] [id number] [place] [address] 14 Mar, 2009 [facility] [address] [id number] [place] [address] Mar, [facility] [address] [id number] [place] [address] Feb, [facility] [address] [id number] [place] [address] Feb, [facility] [address] [id number] [place] [address] 13 Jan, 2009 [facility] [address] [id number] [place] [address] Sep, [facility] [address] [id number] [place] [address] May, IMMUNIZATIONS No Known Immunizations SOCIAL HISTORY Never Assessed REASON FOR VISIT PLAN OF CARE VITAL SIGNS MEDICATIONS Unknown Medications RESULTS No Results PROCEDURES Procedure Date Ordered Result Body Site COMPLETE CBC W/AUTO DIFF WBC August 20, 2013 LIPID PANEL August 20, 2013 COMPREHEN METABOLIC PANEL August 20, 2013 VENIPUNCT, ROUTINE* August 20, 2013 INSTRUCTIONS MEDICATIONS ADMINISTERED No Known Medications MEDICAL (GENERAL) HISTORY Type Description Date Medical History Hypertension Medical History Hyperlipidemia Medical History chronic back pain since age 26 Medical History Anxiety Medical History Hx of Spontaneous Pneumothorax Surgical History right knee arthroscopy Surgical History colon resection Surgical History tonsillectomy Surgical History Left ear surgery Hospitalization History [facility] in [place]- Spontane ous Pneumothorax Hospitalization History [facility]- Colon resection Hospitalization [facility] - diarrhea/ couldnt urin ate nov 2017 Hospitalization History pain /hip to foot right side 10/16/19 19
--- OUTSIDE RECORDS SUMMARY | 2019-08-28 09:00 | XMS REPORT ---
Author Author Dixon Lundberg Doctor Organization [facility] Address Unknown Phone Unavailable Care Team Providers Care Wild Life Manager Name Role Phone Migration, Doctor Unavailable Unavailable PROBLEMS Type Condition ICD9-CM Code [id number] Code Onset Dates Condition S tatus SNOMED Code Problem HTN (hypertension) I10 Active 3 3461163 Problem Insomnia G47.00 Active 047855202 Problem Constipation K59.00 Active 5021337 8 Problem Anxiety F41.9 Active 56275153 Problem Hyperlipidemia E78.5 Active 07110 004 Problem Chronic pain G89.29 Active 0935737 1 Problem Environmental allergies Z91.09 Active 121144733 Problem Primary insomnia F51.01 Active 397 2004 Problem Chronic kidney disease, stage III (moderate) N18.3 Active 619320706 Problem Psychophysiological insomnia F51.04 A ctive 061354513 Problem Vitamin D deficiency E55.9 Active 89216771 Problem Age-related cataract of both eyes, unspecified age-related cataract type H25.9 Active 83796201 Problem Thoracic back pain, unspecif ied back pain laterality, unspecified chronicity M54.6 Active 097173913 Problem Vision loss H54.7 Active 08136042 1 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 60367480 Problem Schizophrenia, unspecified type F20.9 Active 04087505 Problem Psychophysiological insomnia F51.04 A ctive [id number] ALLERGIES No Information ENCOUNTERS Encounter Location Date Diagnosis [id number] [place] [address] Apr, [id number] [place] [address] Apr, [id number] [place] [address] Apr, Psychophysiological insomnia F51.04 [address] [id number] [place] [address] Apr, Thoracic back pain, unspecified back hao n laterality, unspecified chronicity M54.6 [address] [address] [address] Apr, Thoracic back pain, unspecified back hao n laterality, unspecified chronicity M54.6 [facility] [address] [address] Apr, Anxiety F41.9 [address] [address] [address] Apr, Psychophysiological insomnia F51.04 [address] [address] [address] Mar, Encounter for Medicare annual wellness e [...] both eyes, unspecified age-related cataract type H25.9 [address] [address] [address] Mar, Thoracic back pain, unspecified back hao n laterality, unspecified chronicity M54.6 [address] [address] [address] Mar, Psychophysiological insomnia F51.04 [address] [address] [address] Mar, Thoracic back pain, unspecified back hao n laterality, unspecified chronicity M54.6 and Anxiety F41.9 [address] [address] [address] Mar, Psychophysiological insomnia F51.04 [address] [address] [address] Mar, [facility] [address] [address] Mar, Psychophysiological insomnia F51.04 [facility] [address] [address] Mar, [facility] [address] [address] Feb, [facility] [address] [address] Feb, Thoracic back pain, unspecified back hao n laterality, unspecified chronicity M54.6 [address] [address] [address] [address] Feb, Anxiety F41.9 and Thoracic back pain, un specified back pain laterality, unspecified chronicity M54.6 [address] [address] [address] Feb, Insomnia G47.00 ; HTN (hypertension) I10 and Constipation K59.00 [address] [address] [address] Feb, [address] [address] [address] Jan, Thoracic back pain, unspecified back hao n laterality, unspecified chronicity M54.6 [address] [address] [address] Jan, Anxiety F41.9 [address] [address] [address] Jan, Anxiety F41.9 [facility] [address] [address] Jan, Anxiety F41.9 and Thoracic back pain, un specified back pain laterality, unspecified chronicity M54.6 [address] [address] [address] Jan, [facility] [address] [address] Jan, [facility] [address] [address] Dec, Thoracic back pain, unspecified back hao n laterality, unspecified chronicity M54.6 [facility] [address] [address] Dec, Thoracic back pain, unspecified back hao n laterality, unspecified chronicity M54.6 [facility] [address] [address] Nov, Thoracic back pain, unspecified back hao n laterality, unspecified chronicity M54.6 [facility] [address] [address] Nov, Anxiety F41.9 and Thoracic back pain, un specified back pain laterality, unspecified chronicity M54.6 [facility] [address] [address] Nov, [facility] [address] [address] Nov, [facility] [address] [address] Nov, [facility] [address] [address] Oct, Thoracic back pain, unspecified back hao n laterality, unspecified chronicity M54.6 [facility] [address] [address] Oct, Anxiety F41.9 and Thoracic back pain, un specified back pain laterality, unspecified chronicity M54.6 [facility] [address] [address] Oct, Schizophrenia, unspecified type F20.9 an d Acute kidney injury N17.9 [facility] [address] [address] Oct, [facility] [address] [address] Oct, [facility] [address] [address] Oct, Thoracic back pain, unspecified back hao n laterality, unspecified chronicity M54.6 [facility] [address] [address] Oct, [facility] [address] [address] Oct, [facility] [address] [address] Sep, Anxiety F41.9 [facility] [address] [address] Sep, [facility] [address] [address] Sep, Thoracic back pain, unspecified back hao n laterality, unspecified chronicity M54.6 [facility] [address] [address] Sep, [facility] [address] [address] Sep, [facility] [address] [address] Sep, [facility] [address] [address] Sep, [facility] [address] [address] Sep, [facility] [address] [address] Sep, [facility] [address] [address] 10 Sep, 2018 Chronic pain G89.29 ; Chronic kidney dis ease, stage III (moderate) N18.3 ; Hyperlipidemia E78.5 and Insomnia G47.00 [facility] [address] [address] Sep, Thoracic back pain, unspecified back hao n laterality, unspecified chronicity M54.6 [facility] [address] [address] August, Anxiety F41.9 [facility] [address] [address] August, Thoracic back pain, unspecified back hao n laterality, unspecified chronicity M54.6 and Anxiety F41.9 [facility] [address] [address] August, 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 [address] [address] August, 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 [facility] [address] [address] August, [facility] [address] [address] August, [facility] [address] [address] August, Thoracic back pain, unspecified back hao n laterality, unspecified chronicity M54.6 [facility] [address] [address] August, [facility] [address] [address] August, Anxiety F41.9 and Thoracic back pain, un specified back pain laterality, unspecified chronicity M54.6 [facility] [address] [address] Jul, [facility] [address] [address] Jul, Thoracic back pain, unspecified back hao n laterality, unspecified chronicity M54.6 [facility] [address] [address] Jun, Anxiety F41.9 and Thoracic back pain, un specified back pain laterality, unspecified chronicity M54.6 [address] [address] Jun, Anxiety F41.9 and Thoracic back pain, un specified back pain laterality, unspecified chronicity M54.6 [address] [address] [address] Jun, Thoracic back pain, unspecified back hao n laterality, unspecified chronicity M54.6 [address] [address] [address] Jun, Anxiety F41.9 and Thoracic back pain, un specified back pain laterality, unspecified chronicity M54.6 [address] [address] [address] May, [address] [address] [address] May, [address] [address] [address] May, [address] [address] [address] May, Anxiety F41.9 and Encounter for medicati on monitoring Z51.81 [address] [address] [address] 05 May, 2018 Anxiety F41.9 and Thoracic back pain, un specified back pain laterality, unspecified chronicity M54.6 [address] [address] [address] Apr, Hyperlipidemia 272.4 [address] [address] [address] Apr, Chronic pain G89.29 ; Anxiety F41.9 ; Ce rvical radiculopathy M54.12 and Vision loss H54.7 [address] [address] [address] Apr, [address] [address] [address] Apr, Anxiety F41.9 and Thoracic back pain, un specified back pain laterality, unspecified chronicity M54.6 [address] [address] [address] Mar, [address] [address] [address] Mar, Anxiety F41.9 and Thoracic back pain, un specified back pain laterality, unspecified chronicity M54.6 [address] [address] [address] Feb, Anxiety F41.9 and Thoracic back pain, un specified back pain laterality, unspecified chronicity M54.6 [place] [address] [address] Feb, Thoracic back pain, unspecified back hao n laterality, unspecified chronicity M54.6 [place] [address] [address] [address] Jan, [place] [address] [address] Jan, Anxiety F41.9 and Thoracic back pain, un specified back pain laterality, unspecified chronicity M54.6 [place] [address] [address] Dec, Diarrhea of presumed infectious origin R 19.7 [address] [address] [address] [address] Dec, Diarrhea of presumed infectious origin R 19.7 [place] [address] [address] 18 Dec, 2017 Thoracic back pain, unspecified back hao n laterality, unspecified chronicity M54.6 [address] [address] [address] Dec, [place] [address] [address] [address] Dec, Anxiety F41.9 and Thoracic back pain, un specified back pain laterality, unspecified chronicity M54.6 [place] [address] [address] Dec, Diarrhea of presumed infectious origin R 19.7 [address] [address] [address] [address] Dec, [place] [address] [address] Dec, Anxiety F41.9 and Thoracic back pain, un specified back pain laterality, unspecified chronicity M54.6 [place] [address] [address] Dec, Anxiety F41.9 and Thoracic back pain, un specified back pain laterality, unspecified chronicity M54.6 [facility] [employer] [address] [place] [id number] Dec, Diarrhea of presumed infectious origin R 19.7 ; Anxiety F41.9 ; Thoracic back pain, unspecified back pain laterality, unspecified chronicity M54.6 and HTN (hypertension) I10 [address] [address] Dec, Anxiety F41.9 [facility] [employer] [address] [place] [id number] Dec, Anxiety F41.9 ; Diarrhea of presumed inf ectious origin R19.7 ; Generalized abdominal pain R10.84 and Localized edema R60.0 [address] [address] [address] Nov, [facility] [employer] [address] [place] [id number] Nov, Anxiety F41.9 ; Urinary retention R33.9 ; Diarrhea of presumed infectious origin R19.7 ; Weakness R53.1 ; Acute kidney failure, unspecified N17.9 ; Chronic kidney disease, stage III (moderate) N18.3 and Thoracic back pain, unspecified back pain laterality, unspecified chronicity M54.6 [address] [address] [address] Oct, Thoracic back pain, unspecified back hao n laterality, unspecified chronicity M54.6 and Anxiety F41.9 [place] [address] [address] [address] Sep, Thoracic back pain, unspecified back hao n laterality, unspecified chronicity M54.6 and Anxiety F41.9 [address] [address] [address] Sep, Thoracic back pain, unspecified back hao n laterality, unspecified chronicity M54.6 ; Anxiety F41.9 and Encounter for medication monitoring Z51.81 [address] [address] [address] August, [place] [address] [address] August, Thoracic back pain, unspecified back hao n laterality, unspecified chronicity M54.6 and Anxiety F41.9 [address] [address] [address] August, Hyperlipidemia E78.5 and HTN (hypertensi on) I10 [address] [address] [address] August, [address] [address] [address] August, Medicare welcome exam Z00.00 ; Chronic k idney failure N18.9 ; Anxiety F41.9 ; Chronic pain G89.29 ; Insomnia G47.00 ; Hyperlipidemia E78.5 ; HTN (hypertension) I10 and Thoracic back pain, unspecified back pain laterality, unspecified chronicity M54.6 [address] [address] [address] Jul, [place] [address] [address] Jul, [address] [address] [address] Jul, [place] [address] [address] Jul, Anxiety F41.9 [address] [address] [address] Jul, Thoracic back pain, unspecified back hao n laterality, unspecified chronicity M54.6 and Anxiety F41.9 [address] [address] [address] Jun, Thoracic back pain, unspecified back hao n laterality, unspecified chronicity M54.6 and Anxiety F41.9 [address] [address] [address] May, Thoracic back pain, unspecified back hao n laterality, unspecified chronicity M54.6 and Anxiety F41.9 [address] [address] [address] Apr, Thoracic back pain, unspecified back hao n laterality, unspecified chronicity M54.6 and Anxiety F41.9 [address] [address] [address] Mar, [address] [address] [address] Mar, Thoracic back pain, unspecified back hao n laterality, unspecified chronicity M54.6 and Anxiety F41.9 [address] [address] [address] Mar, Thoracic back pain, unspecified back hao n laterality, unspecified chronicity M54.6 ; HTN (hypertension) I10 ; Hyperlipidemia E78.5 and Anxiety F41.9 [address] [address] [address] [address] Feb, Thoracic back pain, unspecified back hao n laterality, unspecified chronicity M54.6 and Anxiety F41.9 [address] [address] [address] Nov, [facility] [address] [address] Oct, [facility] [address] [address] Oct, Thoracic back pain, unspecified back hao n laterality, unspecified chronicity M54.6 [facility] [address] [address] Oct, HTN (hypertension) I10 ; Constipation K5 9.00 ; Hyperlipidemia E78.5 ; Thoracic back pain, unspecified back pain laterality, unspecified chronicity M54.6 ; Chronic pain G89.29 ; Anxiety F41.9 ; Chronic kidney failure N18.9 ; Environmental allergies Z91.09 ; Vitamin D deficiency E55.9 and Primary insomnia F51.01 [address] [address] [address] Sep, Anxiety F41.9 [address] [address] [address] Sep, [facility] [address] [address] August, Anxiety F41.9 [facility] [address] [address] August, [address] [address] [address] Jul, Anxiety F41.9 [facility] [address] [address] Jul, [facility] [address] [address] Jun, Anxiety F41.9 [facility] [address] [address] Jun, [facility] [address] [address] May, [facility] [address] [address] May, [facility] [address] [address] May, [facility] [address] [address] Apr, [facility] [address] [address] Apr, [facility] [address] [address] Apr, Anxiety F41.9 [facility] [address] [address] Apr, Anxiety F41.9 [facility] [address] [address] Apr, [facility] [address] [address] Mar, HTN (hypertension) I10 ; Tremor R25.1 ; Hypercholesterolemia E78.0 ; Constipation K59.00 ; Chronic pain G89.29 ; Hyperlipidemia E78.5 ; Insomnia G47.00 ; Anxiety F41.9 and Thoracic back pain, unspecified back pain laterality, unspecified chronicity M54.6 [facility] [address] [address] Mar, Tremor R25.1 ; HTN (hypertension) I10 ; Hypercholesterolemia E78.0 ; Constipation K59.00 ; Chronic pain G89.29 ; Hyperlipidemia E78.5 ; Insomnia G47.00 ; Anxiety F41.9 and Thoracic back pain, unspecified back pain laterality, unspecified chronicity M54.6 [facility] [address] [address] Mar, [facility] [address] [address] Mar, [facility] [address] [address] Feb, [facility] [id number] [place] [address] Jan, [facility] [address] [address] Jan, [facility] [id number] [place] [address] Dec, [facility] [address] [address] Nov, [facility] [address] [address] Nov, [facility] [address] [address] Oct, Anxiety F41.9 [facility] [address] [address] Oct, Chronic pain G89.29 [facility] [address] [address] Sep, [facility] [address] [address] Sep, [facility] [address] [address] Sep, [facility] [address] [address] Sep, [facility] [address] [address] Sep, Chronic pain syndrome G89.4 [facility] [address] [address] 15 Sep, 2015 HTN (hypertension) I10 ; Chronic pain G8 9.29 ; Hypercholesterolemia E78.0 ; Chronic kidney failure N18.9 ; Constipation, unspecified constipation type K59.00 ; Anxiety F41.9 and Thoracic back pain, unspecified back pain laterality, unspecified chronicity M54.6 [facility] [address] [address] August, Chronic pain syndrome G89.4 [facility] [id number] [place] [address] August, Chronic pain syndrome G89.4 [facility] [id number] [place] [address] Jul, Anxiety disorder, unspecified F41.9 and Chronic pain syndrome G89.4 [facility] [id number] [place] [address] Jul, Insomnia, unspecified G47.00 and Chronic pain syndrome G89.4 [facility] [id number] [place] [address] Jul, Allergic rhinitis J30.9 [facility] [id number] [place] [address] Jul, Constipation, unspecified K59.00 [facility] [id number] [place] [address] Jul, [facility] [id number] [place] [address] Jun, [facility] [id number] [place] [address] Jun, [facility] [id number] [place] [address] Jun, [facility] [id number] [place] [address] Jun, [facility] [id number] [place] [address] Jun, [facility] [id number] [place] [address] Jun, [facility] [id number] [place] [address] May, [facility] [id number] [place] [address] May, [facility] [address] [address] May, Anxiety F41.9 ; Insomnia G47.00 ; Hyperl ipidemia E78.5 ; Chronic pain G89.29 ; HTN (hypertension) I10 ; Environmental allergies V15.09 and Constipation 564.00 [facility] [address] [address] Apr, [facility] [address] [address] Apr, [facility] [address] [address] Apr, [facility] [address] [address] Mar, [facility] [address] [address] Mar, [facility] [address] [address] Mar, [facility] [address] [address] Feb, [facility] [address] [address] Feb, [facility] [address] [address] Feb, [facility] [address] [address] Jan, HTN (hypertension) I10 ; Constipation K5 9.00 ; Chronic pain G89.29 ; Hyperlipidemia E78.5 ; Hypercholesterolemia E78.0 ; Insomnia G47.00 and Anxiety F41.9 [facility] [address] [address] Jan, [facility] [address] [address] Dec, [facility] [address] [address] Nov, [facility] [id number] [place] [address] Oct, Chronic kidney disease, unspecified 585. 9 ; Chronic pain syndrome 338.4 ; Hyperlipidemia 272.4 and Essential hypertension 401.9 [facility] [id number] [place] [address] Oct, Chronic kidney disease 585.9 [facility] [address] [address] Oct, [facility] [address] [address] Oct, Chronic kidney disease, unspecified 585. 9 ; Hypercalcemia 275.42 ; Hyperlipidemia 272.4 ; Essential hypertension 401.9 ; Chronic pain syndrome 338.4 ; Insomnia 780.52 ; Constipation 564.00 ; Environmental allergies V15.09 and Anxiety 300.00 [facility] [id number] [place] [address] Oct, Chronic kidney disease 585.9 [facility] [id number] [place] [address] Oct, [facility] [address] [address] Oct, Chronic kidney disease 585.9 and Hyperli pidemia 272.4 [facility] [id number] [place] [address] Oct, [facility] [id number] [place] [address] Oct, [facility] [id number] [place] [address] Sep, [facility] [address] [address] Sep, [facility] [address] [address] Sep, Chronic kidney disease 585.9 and Hyperli pidemia 272.4 [facility] [address] [place] [address] Sep, [facility] [address] [facility] [id number] [place] [address] August, [facility] [address] [id number] [place] [address] August, [facility] [address] [id number] [place] [address] 14 Jul, 2014 [facility] [address] [id number] [place] [address] Jul, [facility] [address] [id number] [place] [address] Jun, [facility] [address] [id number] [place] [address] Jun, [facility] [address] [id number] [place] [address] Jun, [facility] [address] [id number] [place] [address] Jun, [facility] [address] [id number] [place] [address] Jun, [facility] [address] [facility] [id number] [place] [address] Jun, [facility] [address] [facility] [id number] [place] [address] Jun, [facility] [address] [facility] [id number] [place] [address] Jun, [facility] [address] [facility] [id number] [place] [address] May, [facility] [address] [facility] [id number] [place] [address] May, [facility] [address] [facility] [id number] [place] [address] May, [facility] [address] [facility] [id number] [place] [address] May, [facility] [address] [facility] [id number] [place] [address] Apr, [facility] [address] [facility] [id number] [place] [address] Apr, [facility] [address] [facility] [id number] [place] [address] Apr, [facility] [address] [id number] [place] [address] Apr, [facility] [address] [facility] [id number] [place] [address] Apr, [facility] [address] [id number] [place] [address] Apr, [facility] [address] [id number] [place] [address] Apr, [facility] [address] [id number] [place] [address] Apr, [facility] [address] [id number] [place] [address] Apr, [facility] [address] [id number] [place] [address] Apr, [facility] [address] [id number] [place] [address] Apr, [facility] [address] [id number] [place] [address] Mar, [facility] [address] [id number] [place] [address] Mar, [facility] [address] [facility] [id number] [place] [address] Feb, [facility] [address] [id number] [place] [address] Feb, [facility] [address] [id number] [place] [address] Feb, [facility] [address] [id number] [place] [address] Feb, [facility] [address] [id number] [place] [address] Feb, [facility] [address] [id number] [place] [address] Feb, [facility] [address] [id number] [place] [address] Feb, [facility] [address] [id number] [place] [address] Feb, [facility] [address] [facility] [id number] [place] [address] Feb, [facility] [address] [id number] [place] [address] Feb, [facility] [address] [id number] [place] [address] Jan, [facility] [address] [id number] [place] [address] Jan, [facility] [address] [id number] [place] [address] Jan, [facility] [address] [id number] [place] [address] Jan, [facility] [address] [id number] [place] [address] Jan, [facility] [address] [id number] [place] [address] Jan, [facility] [address] [id number] [place] [address] Jan, [facility] [address] [id number] [place] [address] Jan, [facility] [address] [id number] [place] [address] Jan, 2013 [facility] [address] [id number] [place] [address] Jan, [facility] [address] [id number] [place] [address] 06 Jan, 2013 [facility] [address] [id number] [place] [address] Dec, 2013 [facility] [address] [facility] [id number] [place] [address] Dec, 2013 [facility] [address] [facility] [id number] [place] [address] Dec, 2013 [facility] [address] [facility] [id number] [place] [address] Dec, 2013 [facility] [address] [id number] [place] [address] Dec, [facility] [address] [facility] [id number] [place] [address] Dec, [facility] [address] [facility] [id number] [place] [address] Dec, [facility] [address] [id number] [place] [address] Dec, [facility] [address] [id number] [place] [address] Nov, [facility] [address] [id number] [place] [address] Nov, [facility] [address] [id number] [place] [address] Nov, [facility] [address] [id number] [place] [address] Nov, [facility] [address] [facility] [id number] [place] [address] Nov, [facility] [address] [id number] [place] [address] Nov, [facility] [address] [facility] [id number] [place] [address] Nov, [facility] [address] [facility] [id number] [place] [address] Nov, [facility] [address] [facility] [id number] [place] [address] Oct, [facility] [address] [facility] [id number] [place] [address] Oct, [facility] [address] [facility] [id number] [place] [address] Oct, [facility] [address] [id number] [place] [address] Oct, [facility] [address] [facility] [id number] [place] [address] Sep, [facility] [address] [id number] [place] [address] Sep, [facility] [address] [facility] [id number] [place] [address] Sep, [facility] [address] [id number] [place] [address] Sep, [facility] [address] [facility] [id number] [place] [address] Sep, [facility] [address] [id number] [place] [address] Sep, [facility] [address] [facility] [id number] [place] [address] Sep, [facility] [address] [facility] [id number] [place] [address] Sep, [facility] [address] [facility] [id number] [place] [address] August, [facility] [address] [facility] [id number] [place] [address] August, [facility] [address] [id number] [place] [address] August, [facility] [address] [id number] [place] [address] August, [facility] [address] [id number] [place] [address] August, [facility] [address] [facility] [id number] [place] [address] August, [facility] [address] [facility] [id number] [facility] [place] [address] August, [facility] [address] [facility] [id number] [place] [address] August, [facility] [address] [facility] [id number] [facility] [place] [address] August, [facility] [address] [facility] [id number] [facility] [place] [address] August, [facility] [address] [facility] [id number] [place] [address] Jul, [facility] [address] [id number] [place] [address] Jul, [facility] [address] [id number] [place] [address] Jul, [facility] [address] [id number] [place] [address] Jul, [facility] [address] [id number] [place] [address] Jul, [facility] [address] [id number] [place] [address] Jul, [facility] [address] [id number] [place] [address] Jul, [facility] [address] [id number] [place] [address] Jul, [facility] [address] [id number] [place] [address] Jun, [facility] [address] [id number] [place] [address] Jun, [facility] [address] [facility] [id number] [place] [address] Jun, [facility] [address] [id number] [place] [address] Jun, [facility] [address] [facility] [id number] [place] [address] Jun, [facility] [address] [facility] [id number] [place] [address] Jun, [facility] [address] [id number] [place] [address] May, [facility] [address] [id number] [place] [address] May, [facility] [address] [id number] [place] [address] May, [facility] [address] [id number] [place] [address] May, [facility] [address] [facility] [id number] [place] [address] May, [facility] [address] [id number] [place] [address] May, [facility] [address] [id number] [place] [address] May, [facility] [address] [id number] [place] [address] Apr, [facility] [address] [id number] [place] [address] Apr, [facility] [address] [id number] [place] [address] Apr, [facility] [address] [id number] [place] [address] Apr, [facility] [address] [id number] [place] [address] Apr, [facility] [address] [id number] [place] [address] Apr, [facility] [address] [id number] [place] [address] Mar, [facility] [address] [id number] [place] [address] Mar, [facility] [address] [id number] [place] [address] Mar, [facility] [address] [id number] [place] [address] Mar, [facility] [address] [id number] [place] [address] Mar, [facility] [address] [id number] [place] [address] Mar, [facility] [address] [id number] [place] [address] Mar, [facility] [address] [id number] [place] [address] 16 Mar, 2013 [facility] [address] [id number] [place] [address] Mar, [facility] [address] [id number] [place] [address] Mar, [facility] [address] [id number] [place] [address] Feb, [facility] [address] [id number] [place] [address] Feb, [facility] [address] [id number] [place] [address] Feb, [facility] [address] [id number] [place] [address] Feb, [facility] [address] [id number] [place] [address] 14 Feb, 2013 [facility] [address] [facility] [id number] [place] [address] 14 Feb, 2013 [facility] [address] [facility] [id number] [place] [address] Feb, [facility] [address] [facility] [id number] [place] [address] Feb, [facility] [address] [facility] [id number] [place] [address] Feb, [facility] [address] [facility] [id number] [place] [address] Feb, [facility] [address] [id number] [place] [address] Jan, [facility] [address] [id number] [place] [address] Jan, [facility] [address] [id number] [place] [address] Jan, [facility] [address] [id number] [place] [address] Jan, [facility] [address] [id number] [place] [address] Jan, [facility] [address] [id number] [place] [address] Jan, [facility] [address] [id number] [place] [address] Jan, [facility] [address] [id number] [place] [address] Jan, [facility] [address] [id number] [place] [address] Jan, [facility] [address] [id number] [place] [address] Dec, [facility] [address] [id number] [place] [address] 23 Dec, 2012 [facility] [address] [id number] [place] [address] 21 Dec, 2012 [facility] [address] [id number] [place] [address] 13 Dec, 2012 [facility] [address] [id number] [place] [address] Nov, [facility] [address] [id number] [place] [address] Nov, [facility] [address] [id number] [place] [address] Nov, [facility] [address] [id number] [place] [address] Nov, [facility] [address] [id number] [place] [address] Nov, [facility] [address] [facility] [id number] [place] [address] Nov, [facility] [address] [id number] [place] [address] Oct, [facility] [address] [id number] [place] [address] Oct, [facility] [address] [id number] [place] [address] Oct, [facility] [address] [id number] [place] [address] Oct, [facility] [address] [id number] [place] [address] Sep, [facility] [address] [id number] [place] [address] Sep, [facility] [address] [id number] [place] [address] Sep, [facility] [address] [id number] [place] [address] Sep, [facility] [address] [id number] [place] [address] Sep, [facility] [address] [id number] [place] [address] August, [facility] [address] [id number] [place] [address] August, [facility] [address] [id number] [place] [address] Jul, [facility] [address] [id number] [place] [address] Jul, [facility] [address] [id number] [place] [address] 15 Jul, 2012 [facility] [address] [id number] [place] [address] Jul, [facility] [address] [id number] [place] [address] 08 Jul, 2012 [facility] [address] [id number] [place] [address] Jun, [facility] [address] [id number] [place] [address] Jun, [facility] [address] [id number] [place] [address] 15 Jun, 2012 [facility] [address] [id number] [place] [address] Jun, [facility] [address] [id number] [place] [address] Jun, [facility] [address] [id number] [place] [address] 28 May, 2012 [facility] [address] [id number] [place] [address] 27 May, 2012 [facility] [address] [id number] [place] [address] 25 May, 2012 [facility] [address] [id number] [place] [address] 21 May, 2012 [facility] [address] [id number] [place] [address] 20 May, 2012 [facility] [address] [id number] [place] [address] 14 May, 2012 [facility] [address] [id number] [place] [address] 13 May, 2012 [facility] [address] [id number] [place] [address] 08 May, 2012 [facility] [address] [id number] [place] [address] May, [facility] [address] [id number] [place] [address] Apr, [facility] [address] [id number] [place] [address] Apr, [facility] [address] [id number] [place] [address] Apr, [facility] [address] [id number] [place] [address] Apr, [facility] [address] [id number] [place] [address] Apr, [facility] [address] [id number] [place] [address] Mar, [facility] [address] [id number] [place] [address] Mar, [facility] [address] [id number] [place] [address] Mar, [facility] [address] [id number] [place] [address] Mar, [facility] [address] [id number] [place] [address] Mar, [facility] [address] [id number] [place] [address] Mar, [facility] [address] [id number] [place] [address] Mar, [facility] [address] [id number] [place] [address] 17 Mar, 2012 [facility] [address] [id number] [place] [address] Mar, [facility] [address] [id number] [place] [address] Mar, [facility] [address] [id number] [place] [address] Feb, [facility] [address] [facility] [id number] [place] [address] Feb, [facility] [address] [facility] [id number] [place] [address] Feb, [facility] [address] [facility] [id number] [place] [address] Feb, [facility] [address] [facility] [id number] [place] [address] Feb, [facility] [address] [facility] [id number] [place] [address] Feb, [facility] [address] [facility] [id number] [place] [address] Feb, [facility] [address] [facility] [id number] [place] [address] Feb, [facility] [address] [facility] [id number] [place] [address] Feb, [facility] [address] [facility] [id number] [place] [address] Feb, [facility] [address] [facility] [id number] [place] [address] Feb, [facility] [address] [facility] [id number] [place] [address] Feb, [facility] [address] [facility] [id number] [place] [address] Feb, [facility] [address] [facility] [id number] [place] [address] Feb, [facility] [address] [facility] [id number] [place] [address] Feb, [facility] [address] [facility] [id number] [place] [address] Feb, [facility] [address] [facility] [id number] [place] [address] Feb, [facility] [address] [facility] [id number] [place] [address] Feb, [facility] [address] [facility] [id number] [place] [address] Jan, [facility] [address] [facility] [id number] [place] [address] Jan, [facility] [address] [facility] [id number] [place] [address] Jan, [facility] [address] [facility] [id number] [place] [address] Jan, [facility] [address] [facility] [id number] [place] [address] Jan, [facility] [address] [facility] [id number] [place] [address] Jan, [facility] [address] [facility] [id number] [place] [address] Jan, [facility] [address] [facility] [id number] [place] [address] Jan, [facility] [address] [facility] [id number] [place] [address] Jan, [facility] [address] [facility] [id number] [place] [address] Jan, [facility] [address] [facility] [id number] [place] [address] Dec, [facility] [address] [facility] [id number] [place] [address] 18 Dec, 2011 [facility] [address] [facility] [id number] [place] [address] Dec, [facility] [address] [facility] [id number] [place] [address] Dec, [facility] [address] [facility] [id number] [place] [address] Nov, [facility] [id number] [place] [address] Nov, [facility] [address] [facility] [id number] [place] [address] Nov, [facility] [address] [facility] [id number] [place] [address] Nov, [facility] [address] [facility] [id number] [place] [address] Nov, [facility] [address] [facility] [id number] [place] [address] Nov, [facility] [address] [facility] [id number] [place] [address] Oct, [facility] [address] [facility] [id number] [place] [address] Oct, [facility] [address] [facility] [id number] [place] [address] Oct, [facility] [address] [facility] [id number] [place] [address] Oct, [facility] [address] [facility] [id number] [place] [address] Oct, [facility] [address] [facility] [id number] [place] [address] Sep, [facility] [address] [facility] [id number] [place] [address] Sep, [facility] [address] [facility] [id number] [place] [address] Sep, [facility] [address] [facility] [id number] [place] [address] Sep, [facility] [address] [facility] [id number] [place] [address] Sep, [facility] [address] [facility] [id number] [place] [address] August, [facility] [address] [facility] [id number] [place] [address] August, [facility] [address] [facility] [id number] [place] [address] August, [facility] [address] [facility] [id number] [place] [address] August, [facility] [address] [facility] [id number] [place] [address] Jul, [facility] [address] [facility] [id number] [place] [address] Jul, [facility] [address] [facility] [id number] [place] [address] Jul, [facility] [address] [facility] [id number] [place] [address] Jul, [facility] [address] [facility] [id number] [place] [address] Jul, [facility] [address] [facility] [id number] [place] [address] Jul, [facility] [address] [facility] [id number] [place] [address] Jul, [facility] [address] [facility] [id number] [place] [address] 10 Jul, 2011 [facility] [address] [facility] [id number] [place] [address] Jul, [facility] [address] [facility] [id number] [place] [address] Jul, [facility] [address] [facility] [id number] [place] [address] 05 Jul, 2011 [facility] [address] [facility] [id number] [place] [address] Jul, [facility] [address] [facility] [id number] [place] [address] Jul, [facility] [address] [facility] [id number] [place] [address] Jul, [facility] [address] [facility] [id number] [place] [address] 28 Jun, 2011 [facility] [address] [facility] [id number] [place] [address] 27 Jun, 2011 [facility] [address] [facility] [id number] [place] [address] Jun, [facility] [address] [facility] [id number] [place] [address] 16 Jun, 2011 [facility] [address] [facility] [id number] [place] [address] May, [facility] [address] [facility] [id number] [place] [address] May, [facility] [address] [facility] [id number] [place] [address] May, [facility] [address] [facility] [id number] [place] [address] Apr, [facility] [address] [facility] [id number] [place] [address] Apr, [facility] [address] [facility] [id number] [place] [address] Apr, [facility] [address] [facility] [id number] [place] [address] Apr, [facility] [address] [facility] [id number] [place] [address] Apr, [facility] [address] [facility] [id number] [place] [address] Mar, [facility] [address] [facility] [id number] [place] [address] Mar, [facility] [address] [facility] [id number] [place] [address] Mar, [facility] [address] [facility] [id number] [place] [address] Mar, [facility] [address] [facility] [id number] [place] [address] Mar, [facility] [address] [facility] [id number] [place] [address] Mar, [facility] [address] [facility] [id number] [place] [address] Mar, [facility] [address] [facility] [id number] [place] [address] Feb, [facility] [address] [facility] [id number] [place] [address] Feb, [facility] [address] [facility] [id number] [place] [address] Feb, [facility] [address] [facility] [id number] [place] [address] Feb, [facility] [address] [facility] [id number] [place] [address] Feb, [facility] [address] [facility] [id number] [place] [address] 14 Feb, 2011 [facility] [address] [facility] [id number] [place] [address] Feb, [facility] [address] [facility] [id number] [place] [address] Jan, [facility] [address] [facility] [id number] [place] [address] 31 Jan, 2011 [facility] [address] [facility] [id number] [place] [address] 31 Jan, 2011 [facility] [address] [facility] [id number] [place] [address] 18 Jan, 2011 [facility] [address] [facility] [id number] [place] [address] Jan, [facility] [address] [facility] [id number] [place] [address] 17 Jan, 2011 [facility] [address] [facility] [id number] [place] [address] Jun, [facility] [address] [facility] [id number] [place] [address] 30 Mar, 2010 [facility] [address] [facility] [id number] [place] [address] 20 Mar, 2010 [facility] [address] [facility] [id number] [place] [address] 14 Mar, 2010 [facility] [address] [facility] [id number] [place] [address] 14 Mar, 2010 [facility] [address] [facility] [id number] [place] [address] 13 Mar, 2010 [facility] [address] [facility] [id number] [place] [address] 07 Mar, 2010 [facility] [address] [facility] [id number] [place] [address] 02 Mar, 2010 [facility] [address] [facility] [id number] [place] [address] Mar, [facility] [address] [facility] [id number] [place] [address] 30 Feb, 2010 [facility] [address] [facility] [id number] [place] [address] 29 Feb, 2010 [facility] [address] [facility] [id number] [place] [address] 17 Feb, 2010 [facility] [address] [facility] [id number] [place] [address] 17 Feb, 2010 [facility] [address] [facility] [id number] [place] [address] 16 Feb, 2010 [facility] [address] [facility] [id number] [place] [address] 08 Feb, 2010 [facility] [address] [facility] [id number] [place] [address] 04 Feb, 2010 [facility] [address] [facility] [id number] [place] [address] Feb, [facility] [address] [facility] [id number] [place] [address] 28 Jan, 2010 [facility] [id number] [place] [address] Jan, [facility] [id number] [place] [address] Jan, [facility] [id number] [place] [address] Jan, [facility] [id number] [place] [address] Mar, [facility] [id number] [place] [address] Mar, [facility] [id number] [place] [address] Mar, [facility] [id number] [place] [address] Mar, [facility] [id number] [place] [address] Mar, [facility] [id number] [place] [address] Mar, [facility] [id number] [place] [address] Feb, [facility] [id number] [place] [address] Feb, [facility] [id number] [place] [address] Jan, [facility] [id number] [place] [address] Sep, [facility] [id number] [place] [address] May, IMMUNIZATIONS No Known Immunizations SOCIAL HISTORY [...] [facility] History [facility]- Colon resection [facility] - diarrhea/ couldnt urin ate nov 2017 Hospitalization History pain /hip to foot right side 10/16/19 19
--- OUTSIDE RECORDS SUMMARY | 2019-08-28 09:00 | XMS REPORT ---
Author Author Dixon Lundbreg Doctor Organization [facility] Address Unknown Phone Unavailable Care Team Providers Care Carpet Technician Name Role Phone Migration, Doctor Unavailable Unavailable PROBLEMS Type Condition ICD9-CM Code QZK43-WA Code Onset Dates Condition S tatus SNOMED Code Problem HTN (hypertension) I10 Active 3 8668396 Problem Insomnia G47.00 Active 813262795 Problem Constipation K59.00 Active 1390399 8 Problem Anxiety F41.9 Active 45401219 Problem Hyperlipidemia E78.5 Active 17664 004 Problem Chronic pain G89.29 Active 0933628 1 Problem Environmental allergies Z91.09 Active 318200669 Problem Primary insomnia F51.01 Active 397 2004 Problem Chronic kidney disease, stage III (moderate) N18.3 Active 643504246 Problem Psychophysiological insomnia F51.04 A ctive 964682441 Problem Vitamin D deficiency E55.9 Active 84150877 Problem Age-related cataract of both eyes, unspecified age-related cataract type H25.9 Active 84502793 Problem Thoracic back pain, unspecif ied back pain laterality, unspecified chronicity M54.6 Active 256485109 Problem Vision loss H54.7 Active 80199240 1 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 39576578 Problem Schizophrenia, unspecified type F20.9 Active 53355740 Problem Psychophysiological insomnia F51.04 A ctive [id number] ALLERGIES No Information ENCOUNTERS Encounter Location Date Diagnosis [facility] [id number] [place] [address] Apr, [facility] [id number] [place] [address] Apr, [facility] [id number] [place] [address] Apr, Psychophysiological insomnia F51.04 [facility] [address] [id number] [place] [address] Apr, Thoracic back pain, unspecified back hao n laterality, unspecified chronicity M54.6 [facility] [address] [address] Apr, Thoracic back pain, unspecified back hao n laterality, unspecified chronicity M54.6 [facility] [address] [address] Apr, Anxiety F41.9 [facility] [place] [address] [address] Apr, Psychophysiological insomnia F51.04 [facility] [address] [address] Mar, Encounter for Medicare annual wellness e [...] both eyes, unspecified age-related cataract type H25.9 [facility] [address] [address] Mar, Thoracic back pain, unspecified back hao n laterality, unspecified chronicity M54.6 [facility] [address] [address] Mar, Psychophysiological insomnia F51.04 [facility] [address] [address] Mar, Thoracic back pain, unspecified back hao n laterality, unspecified chronicity M54.6 and Anxiety F41.9 [facility] [address] [address] Mar, Psychophysiological insomnia F51.04 [facility] [address] [address] Mar, [facility] [address] [address] Mar, Psychophysiological insomnia F51.04 [facility] [address] [address] Mar, [facility] [address] [address] Feb, [facility] [address] [address] Feb, Thoracic back pain, unspecified back hao n laterality, unspecified chronicity M54.6 [facility] [address] [address] Feb, Anxiety F41.9 and Thoracic back pain, un specified back pain laterality, unspecified chronicity M54.6 [facility] [address] [address] Feb, Insomnia G47.00 ; HTN (hypertension) I10 and Constipation K59.00 [facility] [address] [address] Feb, [facility] [address] [address] Jan, Thoracic back pain, unspecified back hao n laterality, unspecified chronicity M54.6 [facility] [address] [address] Jan, Anxiety F41.9 [facility] [address] [address] Jan, Anxiety F41.9 [facility] [address] [address] Jan, Anxiety F41.9 and Thoracic back pain, un specified back pain laterality, unspecified chronicity M54.6 [facility] [place] [address] [address] Jan, [facility] [address] [address] Jan, [facility] [address] [address] Dec, Thoracic back pain, unspecified back hao n laterality, unspecified chronicity M54.6 [facility] [address] [address] Dec, Thoracic back pain, unspecified back hao n laterality, unspecified chronicity M54.6 [facility] [address] [address] Nov, Thoracic back pain, unspecified back hao n laterality, unspecified chronicity M54.6 [facility] [address] [address] Nov, Anxiety F41.9 and Thoracic back pain, un specified back pain laterality, unspecified chronicity M54.6 [facility] [address] [address] Nov, [facility] [address] [address] Nov, [facility] [address] [address] Nov, [facility] [address] [address] Oct, Thoracic back pain, unspecified back hao n laterality, unspecified chronicity M54.6 [facility] [address] [address] Oct, Anxiety F41.9 and Thoracic back pain, un specified back pain laterality, unspecified chronicity M54.6 [facility] [address] [address] Oct, Schizophrenia, unspecified type F20.9 an d Acute kidney injury N17.9 [facility] [address] [address] Oct, [facility] [address] [address] Oct, [facility] [address] [address] Oct, Thoracic back pain, unspecified back hao n laterality, unspecified chronicity M54.6 [facility] [address] [address] Oct, [facility] [address] [address] Oct, [facility] [address] [address] Sep, Anxiety F41.9 [facility] [address] [address] Sep, [facility] [address] [address] Sep, Thoracic back pain, unspecified back hao n laterality, unspecified chronicity M54.6 [facility] [address] [address] Sep, [facility] [address] [address] Sep, [facility] [address] [address] Sep, [facility] [address] [address] Sep, [facility] [address] [address] Sep, [facility] [address] [address] Sep, [facility] [address] [address] 10 Sep, 2018 Chronic pain G89.29 ; Chronic kidney dis ease, stage III (moderate) N18.3 ; Hyperlipidemia E78.5 and Insomnia G47.00 [facility] [address] [address] Sep, Thoracic back pain, unspecified back hao n laterality, unspecified chronicity M54.6 [facility] [address] [address] August, Anxiety F41.9 [facility] [address] [address] August, Thoracic back pain, unspecified back hao n laterality, unspecified chronicity M54.6 and Anxiety F41.9 [facility] [address] [address] August, 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 [facility] [address] [address] August, 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 [facility] [address] [address] August, [facility] [address] [address] August, [facility] [address] [address] August, Thoracic back pain, unspecified back hao n laterality, unspecified chronicity M54.6 [facility] [address] [address] August, [facility] [address] [address] August, Anxiety F41.9 and Thoracic back pain, un specified back pain laterality, unspecified chronicity M54.6 [facility] [address] [address] Jul, [facility] [address] [address] Jul, Thoracic back pain, unspecified back hao n laterality, unspecified chronicity M54.6 [facility] [address] [address] Jun, Anxiety F41.9 and Thoracic back pain, un specified back pain laterality, unspecified chronicity M54.6 [facility] [address] [address] Jun, Anxiety F41.9 and Thoracic back pain, un specified back pain laterality, unspecified chronicity M54.6 [facility] [address] [address] Jun, Thoracic back pain, unspecified back hao n laterality, unspecified chronicity M54.6 [facility] [address] [address] Jun, Anxiety F41.9 and Thoracic back pain, un specified back pain laterality, unspecified chronicity M54.6 [facility] [address] [address] May, [facility] [address] [address] May, [facility] [address] [address] May, [facility] [address] [address] May, Anxiety F41.9 and Encounter for medicati on monitoring Z51.81 [facility] [address] [address] 05 May, 2018 Anxiety F41.9 and Thoracic back pain, un specified back pain laterality, unspecified chronicity M54.6 [facility] [address] [address] Apr, Hyperlipidemia 272.4 [facility] [address] [address] Apr, Chronic pain G89.29 ; Anxiety F41.9 ; Ce rvical radiculopathy M54.12 and Vision loss H54.7 [facility] [address] [address] Apr, [facility] [address] [address] Apr, Anxiety F41.9 and Thoracic back pain, un specified back pain laterality, unspecified chronicity M54.6 [facility] [address] [address] Mar, [facility] [address] [address] Mar, Anxiety F41.9 and Thoracic back pain, un specified back pain laterality, unspecified chronicity M54.6 [facility] [address] [address] Feb, Anxiety F41.9 and Thoracic back pain, un specified back pain laterality, unspecified chronicity M54.6 [facility] [address] [address] Feb, Thoracic back pain, unspecified back hao n laterality, unspecified chronicity M54.6 [facility] [address] [address] Jan, [facility] [address] [address] Jan, Anxiety F41.9 and Thoracic back pain, un specified back pain laterality, unspecified chronicity M54.6 [facility] [address] [address] Dec, Diarrhea of presumed infectious origin R 19.7 [facility] [address] [address] Dec, Diarrhea of presumed infectious origin R 19.7 [facility] [address] [address] 18 Dec, 2017 Thoracic back pain, unspecified back hao n laterality, unspecified chronicity M54.6 [facility] [address] [address] Dec, [facility] [address] [address] Dec, Anxiety F41.9 and Thoracic back pain, un specified back pain laterality, unspecified chronicity M54.6 [facility] [address] [address] Dec, Diarrhea of presumed infectious origin R 19.7 [facility] [address] [address] Dec, [facility] [address] [address] Dec, Anxiety F41.9 and Thoracic back pain, un specified back pain laterality, unspecified chronicity M54.6 [facility] [address] [address] Dec, Anxiety F41.9 and Thoracic back pain, un specified back pain laterality, unspecified chronicity M54.6 [facility] [address] [place] [id number] Dec, Diarrhea of presumed infectious origin R 19.7 ; Anxiety F41.9 ; Thoracic back pain, unspecified back pain laterality, unspecified chronicity M54.6 and HTN (hypertension) I10 [address] [address] Dec, Anxiety F41.9 [facility] [address] [place] [id number] Dec, Anxiety F41.9 ; Diarrhea of presumed inf ectious origin R19.7 ; Generalized abdominal pain R10.84 and Localized edema R60.0 [facility] [address] [address] Nov, [facility] [employer] [facility] [address] [place] [id number] Nov, Anxiety F41.9 ; Urinary retention R33.9 ; Diarrhea of presumed infectious origin R19.7 ; Weakness R53.1 ; Acute kidney failure, unspecified N17.9 ; Chronic kidney disease, stage III (moderate) N18.3 and Thoracic back pain, unspecified back pain laterality, unspecified chronicity M54.6 [facility] [address] [address] Oct, Thoracic back pain, unspecified back hao n laterality, unspecified chronicity M54.6 and Anxiety F41.9 [facility] [address] [address] Sep, Thoracic back pain, unspecified back hao n laterality, unspecified chronicity M54.6 and Anxiety F41.9 [facility] [address] [address] Sep, Thoracic back pain, unspecified back hao n laterality, unspecified chronicity M54.6 ; Anxiety F41.9 and Encounter for medication monitoring Z51.81 [facility] [address] [address] August, [facility] [address] [address] August, Thoracic back pain, unspecified back hao n laterality, unspecified chronicity M54.6 and Anxiety F41.9 [facility] [address] [address] August, Hyperlipidemia E78.5 and HTN (hypertensi on) I10 [facility] [address] [address] August, [facility] [address] [address] August, Medicare welcome exam Z00.00 ; Chronic k idney failure N18.9 ; Anxiety F41.9 ; Chronic pain G89.29 ; Insomnia G47.00 ; Hyperlipidemia E78.5 ; HTN (hypertension) I10 and Thoracic back pain, unspecified back pain laterality, unspecified chronicity M54.6 [facility] [address] [address] Jul, [facility] [address] [address] Jul, [facility] [address] [address] Jul, [facility] [address] [address] Jul, Anxiety F41.9 [facility] [address] [address] Jul, Thoracic back pain, unspecified back hao n laterality, unspecified chronicity M54.6 and Anxiety F41.9 [facility] [address] [address] Jun, Thoracic back pain, unspecified back hao n laterality, unspecified chronicity M54.6 and Anxiety F41.9 [facility] [address] [address] May, Thoracic back pain, unspecified back hao n laterality, unspecified chronicity M54.6 and Anxiety F41.9 [facility] [address] [address] Apr, Thoracic back pain, unspecified back hao n laterality, unspecified chronicity M54.6 and Anxiety F41.9 [facility] [address] [address] Mar, [facility] [address] [address] Mar, Thoracic back pain, unspecified back hao n laterality, unspecified chronicity M54.6 and Anxiety F41.9 [facility] [address] [address] Mar, Thoracic back pain, unspecified back hao n laterality, unspecified chronicity M54.6 ; HTN (hypertension) I10 ; Hyperlipidemia E78.5 and Anxiety F41.9 [facility] [address] [address] Feb, Thoracic back pain, unspecified back hao n laterality, unspecified chronicity M54.6 and Anxiety F41.9 [facility] [address] [address] Nov, [facility] [address] [address] Oct, [facility] [address] [address] Oct, Thoracic back pain, unspecified back hao n laterality, unspecified chronicity M54.6 [facility] [address] [address] Oct, HTN (hypertension) I10 ; Constipation K5 9.00 ; Hyperlipidemia E78.5 ; Thoracic back pain, unspecified back pain laterality, unspecified chronicity M54.6 ; Chronic pain G89.29 ; Anxiety F41.9 ; Chronic kidney failure N18.9 ; Environmental allergies Z91.09 ; Vitamin D deficiency E55.9 and Primary insomnia F51.01 [facility] [address] [address] Sep, Anxiety F41.9 [facility] [place] [address] [address] Sep, [facility] [address] [address] August, Anxiety F41.9 [facility] [address] [address] August, [facility] [address] [address] Jul, Anxiety F41.9 [facility] [address] [address] Jul, [facility] [address] [address] Jun, Anxiety F41.9 [facility] [address] [address] Jun, [facility] [address] [address] May, [facility] [address] [address] May, [facility] [address] [address] May, [facility] [address] [address] Apr, [facility] [address] [address] Apr, [facility] [address] [address] Apr, Anxiety F41.9 [facility] [address] [address] Apr, Anxiety F41.9 [facility] [address] [address] Apr, [facility] [address] [address] Mar, HTN (hypertension) I10 ; Tremor R25.1 ; Hypercholesterolemia E78.0 ; Constipation K59.00 ; Chronic pain G89.29 ; Hyperlipidemia E78.5 ; Insomnia G47.00 ; Anxiety F41.9 and Thoracic back pain, unspecified back pain laterality, unspecified chronicity M54.6 [facility] [address] [address] Mar, Tremor R25.1 ; HTN (hypertension) I10 ; Hypercholesterolemia E78.0 ; Constipation K59.00 ; Chronic pain G89.29 ; Hyperlipidemia E78.5 ; Insomnia G47.00 ; Anxiety F41.9 and Thoracic back pain, unspecified back pain laterality, unspecified chronicity M54.6 [facility] [address] [address] Mar, [facility] [address] [address] Mar, [facility] [address] [address] Feb, [facility] [id number] [place] [address] Jan, [facility] [address] [address] Jan, [facility] [id number] [place] [address] Dec, [facility] [address] [address] Nov, [facility] [address] [address] Nov, [facility] [address] [address] Oct, Anxiety F41.9 [facility] [address] [address] Oct, Chronic pain G89.29 [facility] [address] [address] Sep, [facility] [address] [address] Sep, [facility] [address] [address] Sep, [facility] [address] [address] Sep, [facility] [address] [address] Sep, Chronic pain syndrome G89.4 [facility] [address] [address] 15 Sep, 2015 HTN (hypertension) I10 ; Chronic pain G8 9.29 ; Hypercholesterolemia E78.0 ; Chronic kidney failure N18.9 ; Constipation, unspecified constipation type K59.00 ; Anxiety F41.9 and Thoracic back pain, unspecified back pain laterality, unspecified chronicity M54.6 [facility] [address] [address] August, Chronic pain syndrome G89.4 [facility] [id number] [place] [address] August, Chronic pain syndrome G89.4 [facility] [id number] [place] [address] Jul, Anxiety disorder, unspecified F41.9 and Chronic pain syndrome G89.4 [facility] [address] [place] [address] Jul, Insomnia, unspecified G47.00 and Chronic pain syndrome G89.4 [facility] [id number] [place] [address] Jul, Allergic rhinitis J30.9 [facility] [id number] [place] [address] Jul, Constipation, unspecified K59.00 [facility] [id number] [place] [address] Jul, [facility] [id number] [place] [address] Jun, [facility] [id number] [place] [address] Jun, [facility] [id number] [place] [address] Jun, [facility] [id number] [place] [address] Jun, [facility] [id number] [place] [address] Jun, [facility] [id number] [place] [address] Jun, [facility] [id number] [place] [address] May, [facility] [id number] [place] [address] May, [facility] [address] [address] May, Anxiety F41.9 ; Insomnia G47.00 ; Hyperl ipidemia E78.5 ; Chronic pain G89.29 ; HTN (hypertension) I10 ; Environmental allergies V15.09 and Constipation 564.00 [facility] [address] [address] Apr, [facility] [address] [address] Apr, [facility] [address] [address] Apr, [facility] [address] [address] Mar, [facility] [address] [address] Mar, [facility] [address] [address] Mar, [facility] [address] [address] Feb, [facility] [address] [address] Feb, [facility] [address] [address] Feb, [facility] [address] [address] Jan, HTN (hypertension) I10 ; Constipation K5 9.00 ; Chronic pain G89.29 ; Hyperlipidemia E78.5 ; Hypercholesterolemia E78.0 ; Insomnia G47.00 and Anxiety F41.9 [facility] [address] [address] Jan, [facility] [address] [address] Dec, [facility] [address] [address] Nov, [facility] [id number] [place] [address] Oct, Chronic kidney disease, unspecified 585. 9 ; Chronic pain syndrome 338.4 ; Hyperlipidemia 272.4 and Essential hypertension 401.9 [facility] [id number] [place] [address] Oct, Chronic kidney disease 585.9 [facility] [address] [address] Oct, [facility] [address] [address] Oct, Chronic kidney disease, unspecified 585. 9 ; Hypercalcemia 275.42 ; Hyperlipidemia 272.4 ; Essential hypertension 401.9 ; Chronic pain syndrome 338.4 ; Insomnia 780.52 ; Constipation 564.00 ; Environmental allergies V15.09 and Anxiety 300.00 [facility] [id number] [place] [address] Oct, Chronic kidney disease 585.9 [facility] [address] [place] [address] Oct, [facility] [address] [address] Oct, Chronic kidney disease 585.9 and Hyperli pidemia 272.4 [facility] [id number] [place] [address] Oct, [facility] [id number] [place] [address] Oct, [facility] [id number] [place] [address] Sep, [facility] [address] [address] Sep, [facility] [address] [address] Sep, Chronic kidney disease 585.9 and Hyperli pidemia 272.4 [facility] [address] [place] [address] Sep, [facility] [address] [id number] [place] [address] August, [facility] [address] [id number] [place] [address] August, [facility] [address] [id number] [place] [address] 14 Jul, 2014 [facility] [address] [id number] [place] [address] Jul, [facility] [address] [id number] [place] [address] Jun, [facility] [address] [id number] [place] [address] Jun, [facility] [address] [id number] [place] [address] Jun, [facility] [address] [id number] [place] [address] Jun, [facility] [address] [id number] [place] [address] Jun, [facility] [address] [id number] [place] [address] Jun, [facility] [address] [id number] [place] [address] Jun, [facility] [address] [id number] [place] [address] Jun, [facility] [address] [id number] [place] [address] May, [facility] [address] [id number] [place] [address] May, [facility] [facility] [address] [id number] [place] [address] May, [facility] [address] [id number] [place] [address] May, [facility] [address] [id number] [place] [address] Apr, [facility] [address] [id number] [place] [address] Apr, [facility] [address] [id number] [place] [address] Apr, [facility] [address] [id number] [place] [address] Apr, [facility] [address] [id number] [place] [address] Apr, [facility] [address] [id number] [place] [address] Apr, [facility] [address] [id number] [place] [address] Apr, [facility] [address] [id number] [place] [address] Apr, [facility] [address] [id number] [place] [address] Apr, [facility] [address] [id number] [place] [address] Apr, [facility] [address] [id number] [place] [address] Apr, [facility] [address] [id number] [place] [address] Mar, [facility] [address] [id number] [place] [address] Mar, [facility] [address] [id number] [place] [address] Feb, [facility] [address] [id number] [place] [address] Feb, [facility] [address] [id number] [place] [address] Feb, [facility] [address] [id number] [place] [address] Feb, [facility] [address] [id number] [place] [address] Feb, [facility] [address] [id number] [place] [address] Feb, [facility] [address] [id number] [place] [address] Feb, [facility] [address] [id number] [place] [address] Feb, [facility] [address] [id number] [place] [address] Feb, [facility] [address] [id number] [place] [address] Feb, [facility] [address] [id number] [place] [address] Jan, [facility] [address] [id number] [place] [address] Jan, [facility] [address] [id number] [place] [address] Jan, [facility] [address] [id number] [place] [address] Jan, [facility] [address] [id number] [place] [address] Jan, [facility] [address] [id number] [place] [address] Jan, [facility] [address] [id number] [place] [address] Jan, [facility] [address] [id number] [place] [address] Jan, [facility] [address] [id number] [place] [address] Jan, 2013 [facility] [address] [id number] [place] [address] Jan, [facility] [address] [id number] [place] [address] 06 Jan, 2013 [facility] [address] [id number] [place] [address] Dec, 2013 [facility] [address] [facility] [id number] [place] [address] Dec, 2013 [facility] [address] [id number] [place] [address] Dec, 2013 [facility] [address] [facility] [id number] [place] [address] Dec, 2013 [facility] [address] [id number] [place] [address] Dec, [facility] [address] [id number] [place] [address] Dec, [facility] [address] [id number] [place] [address] Dec, [facility] [address] [id number] [place] [address] Dec, [facility] [address] [id number] [place] [address] Nov, [facility] [address] [id number] [place] [address] Nov, [facility] [address] [id number] [place] [address] Nov, [facility] [address] [id number] [place] [address] Nov, [facility] [address] [id number] [place] [address] Nov, [facility] [address] [id number] [place] [address] Nov, [facility] [address] [id number] [place] [address] Nov, [facility] [address] [id number] [place] [address] Nov, [facility] [address] [facility] [id number] [place] [address] Oct, [facility] [address] [id number] [place] [address] Oct, [facility] [address] [id number] [place] [address] Oct, [facility] [address] [id number] [place] [address] Oct, [facility] [address] [id number] [place] [address] Sep, [facility] [address] [id number] [place] [address] Sep, [facility] [address] [id number] [place] [address] Sep, [facility] [address] [id number] [place] [address] Sep, [facility] [address] [id number] [place] [address] Sep, [facility] [address] [id number] [place] [address] Sep, [facility] [address] [id number] [place] [address] Sep, [facility] [address] [id number] [place] [address] Sep, [facility] [address] [id number] [place] [address] August, [facility] [address] [id number] [place] [address] August, [facility] [address] [id number] [place] [address] August, [facility] [address] [id number] [place] [address] August, [facility] [address] [id number] [place] [address] August, [facility] [address] [facility] [id number] [place] [address] August, [facility] [address] [id number] [facility] [place] [address] August, [facility] [address] [id number] [place] [address] August, [facility] [address] [id number] [facility] [place] [address] August, [facility] [address] [id number] [facility] [place] [address] August, [facility] [address] [id number] [place] [address] Jul, [facility] [address] [id number] [place] [address] Jul, [facility] [address] [id number] [place] [address] Jul, [facility] [address] [id number] [place] [address] Jul, [facility] [address] [id number] [place] [address] Jul, [facility] [address] [id number] [place] [address] Jul, [facility] [address] [id number] [place] [address] Jul, [facility] [address] [id number] [place] [address] Jul, [facility] [address] [id number] [place] [address] Jun, [facility] [address] [id number] [place] [address] Jun, [facility] [address] [id number] [place] [address] Jun, [facility] [address] [id number] [place] [address] Jun, [facility] [address] [facility] [id number] [place] [address] Jun, [facility] [address] [id number] [place] [address] Jun, [facility] [address] [id number] [place] [address] May, [facility] [address] [id number] [place] [address] May, [facility] [address] [id number] [place] [address] May, [facility] [address] [id number] [place] [address] May, [facility] [address] [id number] [place] [address] May, [facility] [address] [id number] [place] [address] May, [facility] [address] [id number] [place] [address] May, [facility] [address] [id number] [place] [address] Apr, [facility] [address] [id number] [place] [address] Apr, [facility] [address] [id number] [place] [address] Apr, [facility] [address] [id number] [place] [address] Apr, [facility] [address] [id number] [place] [address] Apr, [facility] [address] [id number] [place] [address] Apr, [facility] [address] [id number] [place] [address] Mar, [facility] [address] [facility] [id number] [place] [address] Mar, [facility] [address] [id number] [place] [address] Mar, [facility] [address] [id number] [place] [address] Mar, [facility] [address] [id number] [place] [address] Mar, [facility] [address] [id number] [place] [address] Mar, [facility] [address] [id number] [place] [address] Mar, [facility] [address] [id number] [place] [address] 16 Mar, 2013 [facility] [address] [id number] [place] [address] Mar, [facility] [address] [id number] [place] [address] Mar, [facility] [address] [id number] [place] [address] Feb, [facility] [address] [id number] [place] [address] Feb, [facility] [address] [id number] [place] [address] Feb, [facility] [address] [id number] [place] [address] Feb, [facility] [address] [id number] [place] [address] 14 Feb, 2013 [facility] [address] [id number] [place] [address] 14 Feb, 2013 [facility] [address] [id number] [place] [address] Feb, [facility] [address] [id number] [place] [address] Feb, [facility] [address] [facility] [id number] [place] [address] Feb, [facility] [address] [id number] [place] [address] Feb, [facility] [address] [id number] [place] [address] Jan, [facility] [address] [id number] [place] [address] Jan, [facility] [address] [id number] [place] [address] Jan, [facility] [address] [id number] [place] [address] Jan, [facility] [address] [id number] [place] [address] Jan, [facility] [address] [id number] [place] [address] Jan, [facility] [address] [id number] [place] [address] Jan, [facility] [address] [id number] [place] [address] Jan, [facility] [address] [id number] [place] [address] Jan, [facility] [address] [id number] [place] [address] Dec, [facility] [address] [id number] [place] [address] 23 Dec, 2012 [facility] [address] [id number] [place] [address] 21 Dec, 2012 [facility] [address] [id number] [place] [address] 13 Dec, 2012 [facility] [address] [id number] [place] [address] Nov, [facility] [address] [id number] [place] [address] Nov, [facility] [address] [id number] [place] [address] Nov, [facility] [address] [id number] [place] [address] Nov, [facility] [address] [id number] [place] [address] Nov, [facility] [address] [facility] [id number] [place] [address] Nov, [facility] [address] [id number] [place] [address] Oct, [facility] [address] [id number] [place] [address] Oct, [facility] [address] [id number] [place] [address] Oct, [facility] [address] [id number] [place] [address] Oct, [facility] [address] [id number] [place] [address] Sep, [facility] [address] [id number] [place] [address] Sep, [facility] [address] [id number] [place] [address] Sep, [facility] [address] [id number] [place] [address] Sep, [facility] [address] [id number] [place] [address] Sep, [facility] [address] [id number] [place] [address] August, [facility] [address] [id number] [place] [address] August, [facility] [address] [id number] [place] [address] Jul, [facility] [address] [id number] [place] [address] Jul, [facility] [address] [id number] [place] [address] 15 Jul, 2012 [facility] [address] [id number] [place] [address] Jul, [facility] [address] [id number] [place] [address] 08 Jul, 2012 [facility] [address] [id number] [place] [address] Jun, [facility] [address] [id number] [place] [address] Jun, [facility] [address] [id number] [place] [address] 15 Jun, 2012 [facility] [address] [id number] [place] [address] Jun, [facility] [address] [id number] [place] [address] Jun, [facility] [address] [id number] [place] [address] 28 May, 2012 [facility] [address] [id number] [place] [address] 27 May, 2012 [facility] [address] [id number] [place] [address] 25 May, 2012 [facility] [address] [id number] [place] [address] 21 May, 2012 [facility] [address] [id number] [place] [address] 20 May, 2012 [facility] [address] [id number] [place] [address] 14 May, 2012 [facility] [address] [id number] [place] [address] 13 May, 2012 [facility] [address] [id number] [place] [address] 08 May, 2012 [facility] [address] [id number] [place] [address] May, [facility] [address] [id number] [place] [address] Apr, [facility] [address] [id number] [place] [address] Apr, [facility] [address] [id number] [place] [address] Apr, [facility] [address] [id number] [place] [address] Apr, [facility] [address] [id number] [place] [address] Apr, [facility] [address] [id number] [place] [address] Mar, [facility] [address] [id number] [place] [address] Mar, [facility] [address] [id number] [place] [address] Mar, [facility] [address] [id number] [place] [address] Mar, [facility] [address] [id number] [place] [address] Mar, [facility] [address] [id number] [place] [address] Mar, [facility] [address] [id number] [place] [address] Mar, [facility] [address] [id number] [place] [address] 17 Mar, 2012 [facility] [address] [id number] [place] [address] Mar, [facility] [address] [id number] [place] [address] Mar, [facility] [address] [id number] [place] [address] Feb, [facility] [address] [id number] [place] [address] Feb, [facility] [address] [id number] [place] [address] Feb, [facility] [address] [id number] [place] [address] Feb, [facility] [address] [id number] [place] [address] Feb, [facility] [address] [id number] [place] [address] Feb, [facility] [address] [id number] [place] [address] Feb, [facility] [address] [id number] [place] [address] Feb, [facility] [address] [id number] [place] [address] Feb, [facility] [address] [id number] [place] [address] Feb, [facility] [address] [id number] [place] [address] Feb, [facility] [address] [id number] [place] [address] Feb, [facility] [address] [id number] [place] [address] Feb, [facility] [address] [id number] [place] [address] Feb, [facility] [address] [id number] [place] [address] Feb, [facility] [address] [id number] [place] [address] Feb, [facility] [address] [id number] [place] [address] Feb, [facility] [address] [id number] [place] [address] Feb, [facility] [address] [id number] [place] [address] Jan, [facility] [address] [id number] [place] [address] Jan, [facility] [address] [id number] [place] [address] Jan, [facility] [address] [facility] [id number] [place] [address] Jan, [facility] [address] [facility] [id number] [place] [address] Jan, [facility] [address] [facility] [id number] [place] [address] Jan, [facility] [address] [facility] [id number] [place] [address] Jan, [facility] [address] [facility] [id number] [place] [address] Jan, [facility] [address] [facility] [id number] [place] [address] Jan, [facility] [address] [facility] [id number] [place] [address] Jan, [facility] [address] [facility] [id number] [place] [address] Dec, [facility] [address] [facility] [id number] [place] [address] 18 Dec, 2011 [facility] [address] [facility] [id number] [place] [address] Dec, [facility] [address] [facility] [id number] [place] [address] Dec, [facility] [address] [facility] [id number] [place] [address] Nov, [facility] [id number] [place] [address] Nov, [facility] [address] [facility] [id number] [place] [address] Nov, [facility] [address] [facility] [id number] [place] [address] Nov, [facility] [address] [facility] [id number] [place] [address] Nov, [facility] [address] [facility] [id number] [place] [address] Nov, [facility] [address] [facility] [id number] [place] [address] Oct, [facility] [address] [facility] [id number] [place] [address] Oct, [facility] [address] [facility] [id number] [place] [address] Oct, [facility] [address] [facility] [id number] [place] [address] Oct, [facility] [address] [facility] [id number] [place] [address] Oct, [facility] [address] [facility] [id number] [place] [address] Sep, [facility] [address] [facility] [id number] [place] [address] Sep, [facility] [address] [facility] [id number] [place] [address] Sep, [facility] [address] [facility] [id number] [place] [address] Sep, [facility] [address] [facility] [id number] [place] [address] Sep, [facility] [address] [id number] [place] [address] August, [facility] [address] [facility] [id number] [place] [address] August, [facility] [address] [facility] [id number] [place] [address] August, [facility] [address] [facility] [id number] [place] [address] August, [facility] [address] [facility] [id number] [place] [address] Jul, [facility] [address] [facility] [id number] [place] [address] Jul, [facility] [address] [facility] [id number] [place] [address] Jul, [facility] [address] [facility] [id number] [place] [address] Jul, [facility] [address] [facility] [id number] [place] [address] Jul, [facility] [address] [facility] [id number] [place] [address] Jul, [facility] [address] [facility] [id number] [place] [address] Jul, [facility] [address] [facility] [id number] [place] [address] 10 Jul, 2011 [facility] [address] [facility] [id number] [place] [address] Jul, [facility] [address] [facility] [id number] [place] [address] Jul, [facility] [address] [facility] [id number] [place] [address] 05 Jul, 2011 [facility] [address] [facility] [id number] [place] [address] Jul, [facility] [address] [facility] [id number] [place] [address] Jul, [facility] [address] [facility] [id number] [place] [address] Jul, [facility] [address] [facility] [id number] [place] [address] 28 Jun, 2011 [facility] [address] [facility] [id number] [place] [address] 27 Jun, 2011 [facility] [address] [facility] [id number] [place] [address] Jun, [facility] [address] [facility] [id number] [place] [address] 16 Jun, 2011 [facility] [address] [facility] [id number] [place] [address] May, [facility] [address] [facility] [id number] [place] [address] May, [facility] [address] [facility] [id number] [place] [address] May, [facility] [address] [facility] [id number] [place] [address] Apr, [facility] [address] [facility] [id number] [place] [address] Apr, [facility] [address] [facility] [id number] [place] [address] Apr, [facility] [address] [facility] [id number] [place] [address] Apr, [facility] [address] [facility] [id number] [place] [address] Apr, [facility] [address] [facility] [id number] [place] [address] Mar, [facility] [address] [facility] [id number] [place] [address] Mar, [facility] [address] [facility] [id number] [place] [address] Mar, [facility] [address] [facility] [id number] [place] [address] Mar, [facility] [address] [facility] [id number] [place] [address] Mar, [facility] [address] [facility] [id number] [place] [address] Mar, [facility] [address] [facility] [id number] [place] [address] Mar, [facility] [address] [facility] [id number] [place] [address] Feb, [facility] [address] [facility] [id number] [place] [address] Feb, [facility] [address] [facility] [id number] [place] [address] Feb, [facility] [address] [facility] [id number] [place] [address] Feb, [facility] [address] [facility] [id number] [place] [address] Feb, [facility] [address] [facility] [id number] [place] [address] 14 Feb, 2011 [facility] [address] [facility] [id number] [place] [address] Feb, [facility] [address] [facility] [id number] [place] [address] Jan, [facility] [address] [facility] [id number] [place] [address] 31 Jan, 2011 [facility] [address] [facility] [id number] [place] [address] 31 Jan, 2011 [facility] [address] [facility] [id number] [place] [address] 18 Jan, 2011 [facility] [address] [facility] [id number] [place] [address] Jan, [facility] [address] [facility] [id number] [place] [address] 17 Jan, 2011 [facility] [address] [facility] [id number] [place] [address] Jun, [facility] [address] [facility] [id number] [place] [address] 30 Mar, 2010 [facility] [address] [facility] [id number] [place] [address] 20 Mar, 2010 [facility] [address] [facility] [id number] [place] [address] 14 Mar, 2010 [facility] [address] [facility] [id number] [place] [address] 14 Mar, 2010 [facility] [address] [facility] [id number] [place] [address] 13 Mar, 2010 [facility] [address] [facility] [id number] [place] [address] 07 Mar, 2010 [facility] [address] [facility] [id number] [place] [address] 02 Mar, 2010 [facility] [address] [facility] [id number] [place] [address] Mar, [facility] [address] [facility] [id number] [place] [address] 30 Feb, 2010 [facility] [address] [id number] [place] [address] 29 Feb, 2010 [facility] [address] [id number] [place] [address] 17 Feb, 2010 [facility] [address] [id number] [place] [address] 17 Feb, 2010 [facility] [address] [id number] [place] [address] 16 Feb, 2010 [facility] [address] [id number] [place] [address] 08 Feb, 2010 [facility] [address] [id number] [place] [address] 04 Feb, 2010 [facility] [address] [id number] [place] [address] Feb, [facility] [address] [id number] [place] [address] 28 Jan, 2010 [facility] [id number] [place] [address] Jan, [facility] [id number] [place] [address] Jan, [facility] [id number] [place] [address] Jan, [facility] [id number] [place] [address] Mar, [facility] [id number] [place] [address] Mar, [facility] [id number] [place] [address] Mar, [facility] [id number] [place] [address] Mar, [facility] [id number] [place] [address] Mar, [facility] [id number] [place] [address] Mar, [facility] [id number] [place] [address] Feb, [facility] [id number] [place] [address] Feb, [facility] [id number] [place] [address] Jan, [facility] [id number] [place] [address] Sep, [facility] [id number] [place] [address] May, IMMUNIZATIONS No Known Immunizations SOCIAL HISTORY [...] Surgical History Left [facility] Pneumoth[facility]- Colon resection [facility] - diarrhea/ couldnt urin ate nov 2017 Hospitalization History pain /hip to foot right side 10/16/19 19
--- OUTSIDE RECORDS SUMMARY | 2019-08-28 09:01 | XMS REPORT ---
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 Name Role Phone Migration, Doctor Unavailable Unavailable PROBLEMS Type Condition ICD9-CM Code NGW30-SQ Code Onset Dates Condition S tatus SNOMED Code Problem HTN (hypertension) I10 Active 3 5451826 Problem Insomnia G47.00 Active 451829931 Problem Constipation K59.00 Active 8391047 8 Problem Anxiety F41.9 Active 41153786 Problem Hyperlipidemia E78.5 Active 83142 004 Problem Chronic pain G89.29 Active 6449732 1 Problem Environmental allergies Z91.09 Active 721250859 Problem Primary insomnia F51.01 Active 397 2004 Problem Chronic kidney disease, stage III (moderate) N18.3 Active 502735006 Problem Psychophysiological insomnia F51.04 A ctive 846848432 Problem Vitamin D deficiency E55.9 Active 76120656 Problem Age-related cataract of both eyes, unspecified age-related cataract type H25.9 Active 17758822 Problem Thoracic back pain, unspecif ied back pain laterality, unspecified chronicity M54.6 Active 711083453 Problem Vision loss H54.7 Active 34351372 1 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 40388096 Problem Schizophrenia, unspecified type F20.9 Active 11321879 Problem Psychophysiological insomnia F51.04 A ctive [id number] ALLERGIES No Information ENCOUNTERS Encounter Location Date Diagnosis [facility] [id number] [place] [address] Apr, [address] [id number] [place] [address] Apr, [id number] [place] [address] Apr, Psychophysiological insomnia F51.04 [address] [id number] [place] [address] Apr, Thoracic back pain, unspecified back hao n laterality, unspecified chronicity M54.6 [address] [address] [address] Apr, Thoracic back pain, unspecified back hao n laterality, unspecified chronicity M54.6 [facility] [address] [address] Apr, Anxiety F41.9 [address] [address] [address] Apr, Psychophysiological insomnia F51.04 [address] [address] [address] Mar, Encounter for Medicare annual wellness e [...] both eyes, unspecified age-related cataract type H25.9 [address] [address] [address] [address] Mar, Thoracic back pain, unspecified back hao n laterality, unspecified chronicity M54.6 [address] [address] [address] [address] Mar, Psychophysiological insomnia F51.04 [address] [address] [address] [address] Mar, Thoracic back pain, unspecified back hao n laterality, unspecified chronicity M54.6 and Anxiety F41.9 [facility] [address] [address] [address] Mar, Psychophysiological insomnia F51.04 [address] [address] [address] Mar, [facility] [address] [address] Mar, Psychophysiological insomnia F51.04 [facility] [address] [address] Mar, [facility] [address] [address] Feb, [facility] [address] [address] Feb, Thoracic back pain, unspecified back hao n laterality, unspecified chronicity M54.6 [address] [address] [address] Feb, Anxiety F41.9 and Thoracic back pain, un specified back pain laterality, unspecified chronicity M54.6 [facility] [facility] [address] [address] Feb, Insomnia G47.00 ; HTN (hypertension) I10 and Constipation K59.00 [facility] [address] [address] Feb, [address] [address] Jan, Thoracic back pain, unspecified back hao n laterality, unspecified chronicity M54.6 [facility] [address] [address] Jan, Anxiety F41.9 [address] [address] Jan, Anxiety F41.9 [facility] [address] [address] Jan, Anxiety F41.9 and Thoracic back pain, un specified back pain laterality, unspecified chronicity M54.6 [address] [address] [address] Jan, [facility] [address] [address] Jan, [facility] [address] [address] Dec, Thoracic back pain, unspecified back hao n laterality, unspecified chronicity M54.6 [facility] [address] [address] Dec, Thoracic back pain, unspecified back hao n laterality, unspecified chronicity M54.6 [facility] [address] [address] Nov, Thoracic back pain, unspecified back hao n laterality, unspecified chronicity M54.6 [facility] [address] [address] Nov, Anxiety F41.9 and Thoracic back pain, un specified back pain laterality, unspecified chronicity M54.6 [facility] [address] [address] Nov, [facility] [address] [address] Nov, [facility] [address] [address] Nov, [facility] [address] [address] Oct, Thoracic back pain, unspecified back hao n laterality, unspecified chronicity M54.6 [facility] [address] [address] Oct, Anxiety F41.9 and Thoracic back pain, un specified back pain laterality, unspecified chronicity M54.6 [facility] [address] [address] Oct, Schizophrenia, unspecified type F20.9 an d Acute kidney injury N17.9 [facility] [address] [address] Oct, [facility] [address] [address] Oct, [facility] [address] [address] Oct, Thoracic back pain, unspecified back hao n laterality, unspecified chronicity M54.6 [facility] [address] [address] Oct, [facility] [address] [address] Oct, [facility] [address] [address] Sep, Anxiety F41.9 [facility] [address] [address] Sep, [facility] [address] [address] Sep, Thoracic back pain, unspecified back hao n laterality, unspecified chronicity M54.6 [facility] [address] [address] Sep, [facility] [address] [address] Sep, [facility] [address] [address] Sep, [facility] [address] [address] Sep, [facility] [address] [address] Sep, [facility] [address] [address] Sep, [facility] [address] [address] 10 Sep, 2018 Chronic pain G89.29 ; Chronic kidney dis ease, stage III (moderate) N18.3 ; Hyperlipidemia E78.5 and Insomnia G47.00 [facility] [address] [address] Sep, Thoracic back pain, unspecified back hao n laterality, unspecified chronicity M54.6 [facility] [address] [address] August, Anxiety F41.9 [facility] [address] [address] August, Thoracic back pain, unspecified back hao n laterality, unspecified chronicity M54.6 and Anxiety F41.9 [facility] [address] [address] August, 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 [facility] [address] [address] August, 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 [facility] [address] [address] August, [facility] [address] [address] August, [facility] [address] [address] August, Thoracic back pain, unspecified back hao n laterality, unspecified chronicity M54.6 [facility] [address] [address] August, [facility] [address] [address] August, Anxiety F41.9 and Thoracic back pain, un specified back pain laterality, unspecified chronicity M54.6 [facility] [address] [address] Jul, [facility] [address] [address] Jul, Thoracic back pain, unspecified back hao n laterality, unspecified chronicity M54.6 [facility] [address] [address] Jun, Anxiety F41.9 and Thoracic back pain, un specified back pain laterality, unspecified chronicity M54.6 [facility] [address] [address] [address] Jun, Anxiety F41.9 and Thoracic back pain, un specified back pain laterality, unspecified chronicity M54.6 [facility] [address] [address] Jun, Thoracic back pain, unspecified back hao n laterality, unspecified chronicity M54.6 [facility] [address] [address] Jun, Anxiety F41.9 and Thoracic back pain, un specified back pain laterality, unspecified chronicity M54.6 [facility] [address] [address] [address] May, [facility] [address] [address] May, [facility] [address] [address] May, [facility] [address] [address] May, Anxiety F41.9 and Encounter for medicati on monitoring Z51.81 [facility] [address] [address] 05 May, 2018 Anxiety F41.9 and Thoracic back pain, un specified back pain laterality, unspecified chronicity M54.6 [facility] [address] [address] Apr, Hyperlipidemia 272.4 [place] [address] [address] Apr, Chronic pain G89.29 ; Anxiety F41.9 ; Ce rvical radiculopathy M54.12 and Vision loss H54.7 [facility] [address] [address] Apr, [facility] [facility] [address] [address] Apr, Anxiety F41.9 and Thoracic back pain, un specified back pain laterality, unspecified chronicity M54.6 [facility] [address] [address] Mar, [facility] [address] [address] Mar, Anxiety F41.9 and Thoracic back pain, un specified back pain laterality, unspecified chronicity M54.6 [facility] [address] [address] Feb, Anxiety F41.9 and Thoracic back pain, un specified back pain laterality, unspecified chronicity M54.6 [facility] [address] [address] Feb, Thoracic back pain, unspecified back hao n laterality, unspecified chronicity M54.6 [facility] [address] [address] Jan, [facility] [address] [address] Jan, Anxiety F41.9 and Thoracic back pain, un specified back pain laterality, unspecified chronicity M54.6 [facility] [address] [address] Dec, Diarrhea of presumed infectious origin R 19.7 [facility] [address] [address] Dec, Diarrhea of presumed infectious origin R 19.7 [place] [address] [address] 18 Dec, 2017 Thoracic back pain, unspecified back hao n laterality, unspecified chronicity M54.6 [facility] [place] [address] [address] Dec, [facility] [address] [address] Dec, Anxiety F41.9 and Thoracic back pain, un specified back pain laterality, unspecified chronicity M54.6 [facility] [address] [address] Dec, Diarrhea of presumed infectious origin R 19.7 [facility] [address] [address] Dec, [facility] [address] [address] Dec, Anxiety F41.9 and Thoracic back pain, un specified back pain laterality, unspecified chronicity M54.6 [facility] [address] [address] Dec, Anxiety F41.9 and Thoracic back pain, un specified back pain laterality, unspecified chronicity M54.6 [facility] [employer] [facility] [address] [place] [id number] Dec, Diarrhea of presumed infectious origin R 19.7 ; Anxiety F41.9 ; Thoracic back pain, unspecified back pain laterality, unspecified chronicity M54.6 and HTN (hypertension) I10 [address] [address] Dec, Anxiety F41.9 [facility] [facility] [address] [place] [id number] Dec, Anxiety F41.9 ; Diarrhea of presumed inf ectious origin R19.7 ; Generalized abdominal pain R10.84 and Localized edema R60.0 [facility] [address] [address] Nov, [facility] [address] [place] [id number] Nov, Anxiety F41.9 ; Urinary retention R33.9 ; Diarrhea of presumed infectious origin R19.7 ; Weakness R53.1 ; Acute kidney failure, unspecified N17.9 ; Chronic kidney disease, stage III (moderate) N18.3 and Thoracic back pain, unspecified back pain laterality, unspecified chronicity M54.6 [facility] [address] [address] Oct, Thoracic back pain, unspecified back hao n laterality, unspecified chronicity M54.6 and Anxiety F41.9 [facility] [address] [address] Sep, Thoracic back pain, unspecified back hao n laterality, unspecified chronicity M54.6 and Anxiety F41.9 [facility] [facility] [address] [address] Sep, Thoracic back pain, unspecified back hao n laterality, unspecified chronicity M54.6 ; Anxiety F41.9 and Encounter for medication monitoring Z51.81 [facility] [address] [address] August, [facility] [address] [address] August, Thoracic back pain, unspecified back hao n laterality, unspecified chronicity M54.6 and Anxiety F41.9 [facility] [address] [address] August, Hyperlipidemia E78.5 and HTN (hypertensi on) I10 [facility] [address] [address] August, [facility] [address] [address] August, Medicare welcome exam Z00.00 ; Chronic k idney failure N18.9 ; Anxiety F41.9 ; Chronic pain G89.29 ; Insomnia G47.00 ; Hyperlipidemia E78.5 ; HTN (hypertension) I10 and Thoracic back pain, unspecified back pain laterality, unspecified chronicity M54.6 [facility] [address] [address] Jul, [facility] [address] [address] Jul, [facility] [facility] [address] [address] Jul, [facility] [address] [address] Jul, Anxiety F41.9 [facility] [place] [address] [address] Jul, Thoracic back pain, unspecified back hao n laterality, unspecified chronicity M54.6 and Anxiety F41.9 [facility] [address] [address] Jun, Thoracic back pain, unspecified back hao n laterality, unspecified chronicity M54.6 and Anxiety F41.9 [facility] [address] [address] May, Thoracic back pain, unspecified back hao n laterality, unspecified chronicity M54.6 and Anxiety F41.9 [facility] [address] [address] Apr, Thoracic back pain, unspecified back hao n laterality, unspecified chronicity M54.6 and Anxiety F41.9 [facility] [address] [address] Mar, [facility] [address] [address] Mar, Thoracic back pain, unspecified back hao n laterality, unspecified chronicity M54.6 and Anxiety F41.9 [facility] [address] [address] Mar, Thoracic back pain, unspecified back hao n laterality, unspecified chronicity M54.6 ; HTN (hypertension) I10 ; Hyperlipidemia E78.5 and Anxiety F41.9 [facility] [address] [address] Feb, Thoracic back pain, unspecified back hao n laterality, unspecified chronicity M54.6 and Anxiety F41.9 [place] [address] [address] Nov, [facility] [address] [address] Oct, [facility] [address] [address] Oct, Thoracic back pain, unspecified back hao n laterality, unspecified chronicity M54.6 [facility] [address] [address] Oct, HTN (hypertension) I10 ; Constipation K5 9.00 ; Hyperlipidemia E78.5 ; Thoracic back pain, unspecified back pain laterality, unspecified chronicity M54.6 ; Chronic pain G89.29 ; Anxiety F41.9 ; Chronic kidney failure N18.9 ; Environmental allergies Z91.09 ; Vitamin D deficiency E55.9 and Primary insomnia F51.01 [facility] [address] [address] Sep, Anxiety F41.9 [facility] [place] [address] [address] Sep, [facility] [address] [address] August, Anxiety F41.9 [facility] [address] [address] August, [facility] [address] [address] Jul, Anxiety F41.9 [facility] [address] [address] Jul, [facility] [address] [address] Jun, Anxiety F41.9 [facility] [address] [address] Jun, [facility] [address] [address] May, [facility] [address] [address] May, [facility] [address] [address] May, [facility] [address] [address] Apr, [facility] [address] [address] Apr, [facility] [address] [address] Apr, Anxiety F41.9 [facility] [address] [address] Apr, Anxiety F41.9 [facility] [address] [address] Apr, [facility] [address] [address] Mar, HTN (hypertension) I10 ; Tremor R25.1 ; Hypercholesterolemia E78.0 ; Constipation K59.00 ; Chronic pain G89.29 ; Hyperlipidemia E78.5 ; Insomnia G47.00 ; Anxiety F41.9 and Thoracic back pain, unspecified back pain laterality, unspecified chronicity M54.6 [facility] [address] [address] Mar, Tremor R25.1 ; HTN (hypertension) I10 ; Hypercholesterolemia E78.0 ; Constipation K59.00 ; Chronic pain G89.29 ; Hyperlipidemia E78.5 ; Insomnia G47.00 ; Anxiety F41.9 and Thoracic back pain, unspecified back pain laterality, unspecified chronicity M54.6 [facility] [address] [address] Mar, [facility] [address] [address] Mar, [facility] [address] [address] Feb, [facility] [id number] [place] [address] Jan, [facility] [address] [address] Jan, [facility] [id number] [place] [address] Dec, [facility] [address] [address] Nov, [facility] [address] [address] Nov, [facility] [address] [address] Oct, Anxiety F41.9 [facility] [address] [address] Oct, Chronic pain G89.29 [facility] [address] [address] Sep, [facility] [address] [address] Sep, [facility] [address] [address] Sep, [facility] [address] [address] Sep, [facility] [address] [address] Sep, Chronic pain syndrome G89.4 [facility] [address] [address] 15 Sep, 2015 HTN (hypertension) I10 ; Chronic pain G8 9.29 ; Hypercholesterolemia E78.0 ; Chronic kidney failure N18.9 ; Constipation, unspecified constipation type K59.00 ; Anxiety F41.9 and Thoracic back pain, unspecified back pain laterality, unspecified chronicity M54.6 [facility] [address] [address] August, Chronic pain syndrome G89.4 [facility] [id number] [place] [address] August, Chronic pain syndrome G89.4 [facility] [id number] [place] [address] Jul, Anxiety disorder, unspecified F41.9 and Chronic pain syndrome G89.4 [facility] [address] [place] [address] Jul, Insomnia, unspecified G47.00 and Chronic pain syndrome G89.4 [facility] [id number] [place] [address] Jul, Allergic rhinitis J30.9 [facility] [address] [place] [address] Jul, Constipation, unspecified K59.00 [facility] [id number] [place] [address] Jul, [facility] [id number] [place] [address] Jun, [facility] [address] [place] [address] Jun, [facility] [id number] [place] [address] Jun, [facility] [id number] [place] [address] Jun, [facility] [id number] [place] [address] Jun, [facility] [id number] [place] [address] Jun, [facility] [id number] [place] [address] May, [facility] [id number] [place] [address] May, [facility] [address] [address] May, Anxiety F41.9 ; Insomnia G47.00 ; Hyperl ipidemia E78.5 ; Chronic pain G89.29 ; HTN (hypertension) I10 ; Environmental allergies V15.09 and Constipation 564.00 [facility] [address] [address] Apr, [facility] [address] [address] Apr, [facility] [address] [address] Apr, [facility] [address] [address] Mar, [facility] [address] [address] Mar, [facility] [address] [address] Mar, [facility] [address] [address] Feb, [facility] [address] [address] Feb, [facility] [address] [address] Feb, [facility] [address] [address] Jan, HTN (hypertension) I10 ; Constipation K5 9.00 ; Chronic pain G89.29 ; Hyperlipidemia E78.5 ; Hypercholesterolemia E78.0 ; Insomnia G47.00 and Anxiety F41.9 [facility] [address] [address] Jan, [facility] [address] [address] Dec, [facility] [address] [address] Nov, [facility] [id number] [place] [address] Oct, Chronic kidney disease, unspecified 585. 9 ; Chronic pain syndrome 338.4 ; Hyperlipidemia 272.4 and Essential hypertension 401.9 [facility] [id number] [place] [address] Oct, Chronic kidney disease 585.9 [facility] [address] [address] Oct, [facility] [address] [address] Oct, Chronic kidney disease, unspecified 585. 9 ; Hypercalcemia 275.42 ; Hyperlipidemia 272.4 ; Essential hypertension 401.9 ; Chronic pain syndrome 338.4 ; Insomnia 780.52 ; Constipation 564.00 ; Environmental allergies V15.09 and Anxiety 300.00 [facility] [address] [place] [address] Oct, Chronic kidney disease 585.9 [facility] [id number] [place] [address] Oct, [facility] [address] [address] Oct, Chronic kidney disease 585.9 and Hyperli pidemia 272.4 [facility] [id number] [place] [address] Oct, [facility] [id number] [place] [address] Oct, [facility] [id number] [place] [address] Sep, [facility] [address] [address] Sep, [facility] [address] [address] Sep, Chronic kidney disease 585.9 and Hyperli pidemia 272.4 [facility] [address] [place] [address] Sep, [facility] [address] [id number] [place] [address] August, [facility] [address] [id number] [place] [address] August, [facility] [address] [id number] [place] [address] 14 Jul, 2014 [facility] [address] [id number] [place] [address] Jul, [facility] [address] [id number] [place] [address] Jun, [facility] [address] [id number] [place] [address] Jun, [facility] [address] [id number] [place] [address] Jun, [facility] [facility] [address] [id number] [place] [address] Jun, [facility] [address] [id number] [place] [address] Jun, [facility] [address] [id number] [place] [address] Jun, [facility] [address] [id number] [place] [address] Jun, [facility] [address] [id number] [place] [address] Jun, [facility] [address] [id number] [place] [address] May, [facility] [address] [id number] [place] [address] May, [facility] [address] [id number] [place] [address] May, [facility] [address] [id number] [place] [address] May, [facility] [address] [id number] [place] [address] Apr, [facility] [address] [id number] [place] [address] Apr, [facility] [address] [id number] [place] [address] Apr, [facility] [address] [id number] [place] [address] Apr, [facility] [address] [id number] [place] [address] Apr, [facility] [address] [id number] [place] [address] Apr, [facility] [address] [id number] [place] [address] Apr, [facility] [address] [id number] [place] [address] Apr, [facility] [address] [id number] [place] [address] Apr, [facility] [address] [id number] [place] [address] Apr, [facility] [address] [id number] [place] [address] Apr, [facility] [address] [id number] [place] [address] Mar, [facility] [address] [id number] [place] [address] Mar, [facility] [address] [id number] [place] [address] Feb, [facility] [address] [id number] [place] [address] Feb, [facility] [address] [id number] [place] [address] Feb, [facility] [address] [id number] [place] [address] Feb, [facility] [address] [id number] [place] [address] Feb, [facility] [address] [id number] [place] [address] Feb, [facility] [address] [id number] [place] [address] Feb, [facility] [address] [id number] [place] [address] Feb, [facility] [address] [id number] [place] [address] Feb, [facility] [address] [id number] [place] [address] Feb, [facility] [address] [id number] [place] [address] Jan, [facility] [address] [id number] [place] [address] Jan, [facility] [address] [id number] [place] [address] Jan, [facility] [address] [id number] [place] [address] Jan, [facility] [address] [id number] [place] [address] Jan, [facility] [address] [id number] [place] [address] Jan, [facility] [address] [id number] [place] [address] Jan, [facility] [address] [id number] [place] [address] Jan, [facility] [address] [id number] [place] [address] Jan, 2013 [facility] [address] [id number] [place] [address] Jan, [facility] [address] [id number] [place] [address] 06 Jan, 2013 [facility] [address] [id number] [place] [address] Dec, 2013 [facility] [address] [facility] [id number] [place] [address] Dec, 2013 [facility] [address] [id number] [place] [address] Dec, 2013 [facility] [address] [facility] [id number] [place] [address] Dec, 2013 [facility] [address] [id number] [place] [address] Dec, [facility] [address] [id number] [place] [address] Dec, [facility] [address] [id number] [place] [address] Dec, [facility] [address] [id number] [place] [address] Dec, [facility] [address] [id number] [place] [address] Nov, [facility] [address] [id number] [place] [address] Nov, [facility] [address] [id number] [place] [address] Nov, [facility] [address] [id number] [place] [address] Nov, [facility] [address] [id number] [place] [address] Nov, [facility] [address] [id number] [place] [address] Nov, [facility] [address] [id number] [place] [address] Nov, [facility] [address] [id number] [place] [address] Nov, [facility] [address] [facility] [id number] [place] [address] Oct, [facility] [address] [id number] [place] [address] Oct, [facility] [address] [id number] [place] [address] Oct, [facility] [address] [id number] [place] [address] Oct, [facility] [address] [id number] [place] [address] Sep, [facility] [address] [id number] [place] [address] Sep, [facility] [address] [id number] [place] [address] Sep, [facility] [address] [id number] [place] [address] Sep, [facility] [address] [id number] [place] [address] Sep, [facility] [address] [id number] [place] [address] Sep, [facility] [address] [id number] [place] [address] Sep, [facility] [address] [id number] [place] [address] Sep, [facility] [address] [id number] [place] [address] August, [facility] [address] [id number] [place] [address] August, [facility] [address] [id number] [place] [address] August, [facility] [address] [id number] [place] [address] August, [facility] [address] [id number] [place] [address] August, [facility] [address] [facility] [id number] [place] [address] August, [facility] [address] [id number] [facility] [place] [address] August, [facility] [address] [id number] [place] [address] August, [facility] [address] [id number] [facility] [place] [address] August, [facility] [address] [id number] [facility] [place] [address] August, [facility] [address] [id number] [place] [address] Jul, [facility] [address] [id number] [place] [address] Jul, [facility] [address] [id number] [place] [address] Jul, [facility] [address] [id number] [place] [address] Jul, [facility] [address] [id number] [place] [address] Jul, [facility] [address] [id number] [place] [address] Jul, [facility] [address] [id number] [place] [address] Jul, [facility] [address] [id number] [place] [address] Jul, [facility] [address] [id number] [place] [address] Jun, [facility] [address] [id number] [place] [address] Jun, [facility] [address] [id number] [place] [address] Jun, [facility] [address] [id number] [place] [address] Jun, [facility] [address] [facility] [id number] [place] [address] Jun, [facility] [address] [id number] [place] [address] Jun, [facility] [address] [id number] [place] [address] May, [facility] [address] [id number] [place] [address] May, [facility] [address] [id number] [place] [address] May, [facility] [address] [id number] [place] [address] May, [facility] [address] [id number] [place] [address] May, [facility] [address] [id number] [place] [address] May, [facility] [address] [id number] [place] [address] May, [facility] [address] [id number] [place] [address] Apr, [facility] [address] [id number] [place] [address] Apr, [facility] [address] [id number] [place] [address] Apr, [facility] [address] [id number] [place] [address] Apr, [facility] [address] [id number] [place] [address] Apr, [facility] [address] [id number] [place] [address] Apr, [facility] [address] [id number] [place] [address] Mar, [facility] [address] [id number] [place] [address] Mar, [facility] [address] [id number] [place] [address] Mar, [facility] [address] [id number] [place] [address] Mar, [facility] [address] [id number] [place] [address] Mar, [facility] [address] [id number] [place] [address] Mar, [facility] [address] [id number] [place] [address] Mar, [facility] [address] [id number] [place] [address] 16 Mar, 2013 [facility] [address] [id number] [place] [address] Mar, [facility] [address] [id number] [place] [address] Mar, [facility] [address] [id number] [place] [address] Feb, [facility] [address] [id number] [place] [address] Feb, [facility] [address] [id number] [place] [address] Feb, [facility] [address] [id number] [place] [address] Feb, [facility] [address] [id number] [place] [address] 14 Feb, 2013 [facility] [address] [id number] [place] [address] 14 Feb, 2013 [facility] [address] [id number] [place] [address] Feb, [facility] [address] [id number] [place] [address] Feb, [facility] [address] [facility] [id number] [place] [address] Feb, [facility] [address] [id number] [place] [address] Feb, [facility] [address] [id number] [place] [address] Jan, [facility] [address] [id number] [place] [address] Jan, [facility] [address] [id number] [place] [address] Jan, [facility] [address] [id number] [place] [address] Jan, [facility] [address] [id number] [place] [address] Jan, [facility] [address] [id number] [place] [address] Jan, [facility] [address] [id number] [place] [address] Jan, [facility] [address] [id number] [place] [address] Jan, [facility] [address] [id number] [place] [address] Jan, [facility] [address] [id number] [place] [address] Dec, [facility] [address] [id number] [place] [address] 23 Dec, 2012 [facility] [address] [id number] [place] [address] 21 Dec, 2012 [facility] [address] [id number] [place] [address] 13 Dec, 2012 [facility] [address] [id number] [place] [address] Nov, [facility] [address] [id number] [place] [address] Nov, [facility] [address] [id number] [place] [address] Nov, [facility] [address] [id number] [place] [address] Nov, [facility] [address] [id number] [place] [address] Nov, [facility] [address] [facility] [id number] [place] [address] Nov, [facility] [address] [id number] [place] [address] Oct, [facility] [address] [id number] [place] [address] Oct, [facility] [address] [id number] [place] [address] Oct, [facility] [address] [id number] [place] [address] Oct, [facility] [address] [id number] [place] [address] Sep, [facility] [address] [id number] [place] [address] Sep, [facility] [address] [id number] [place] [address] Sep, [facility] [address] [id number] [place] [address] Sep, [facility] [address] [id number] [place] [address] Sep, [facility] [address] [id number] [place] [address] August, [facility] [address] [id number] [place] [address] August, [facility] [address] [id number] [place] [address] Jul[facility] [address] [id number] [place] [address] Jul, [facility] [address] [id number] [place] [address] 15 Jul, 2012 [facility] [address] [id number] [place] [address] Jul, [facility] [address] [id number] [place] [address] 08 Jul, 2012 [facility] [address] [id number] [place] [address] Jun, [facility] [address] [id number] [place] [address] Jun, [facility] [address] [id number] [place] [address] 15 Jun, 2012 [facility] [address] [id number] [place] [address] Jun, [facility] [address] [id number] [place] [address] Jun, [facility] [address] [id number] [place] [address] 28 May, 2012 [facility] [address] [id number] [place] [address] 27 May, 2012 [facility] [address] [id number] [place] [address] 25 May, 2012 [facility] [address] [id number] [place] [address] 21 May, 2012 [facility] [address] [id number] [place] [address] 20 May, 2012 [facility] [address] [id number] [place] [address] 14 May, 2012 [facility] [address] [id number] [place] [address] 13 May, 2012 [facility] [address] [id number] [place] [address] 08 May, 2012 [facility] [address] [id number] [place] [address] May, [facility] [address] [id number] [place] [address] Apr, [facility] [address] [id number] [place] [address] Apr, [facility] [address] [id number] [place] [address] Apr, [facility] [address] [id number] [place] [address] Apr, [facility] [address] [id number] [place] [address] Apr, [facility] [address] [id number] [place] [address] Mar, [facility] [address] [id number] [place] [address] Mar, [facility] [address] [id number] [place] [address] Mar, [facility] [address] [id number] [place] [address] Mar, [facility] [address] [id number] [place] [address] Mar, [facility] [address] [id number] [place] [address] Mar, [facility] [address] [id number] [place] [address] Mar, [facility] [address] [id number] [place] [address] 17 Mar, 2012 [facility] [address] [id number] [place] [address] Mar, [facility] [address] [id number] [place] [address] Mar, [facility] [address] [id number] [place] [address] Feb, [facility] [address] [id number] [place] [address] Feb, [facility] [address] [id number] [place] [address] Feb, [facility] [address] [id number] [place] [address] Feb, [facility] [address] [id number] [place] [address] Feb, [facility] [address] [id number] [place] [address] Feb, [facility] [address] [id number] [place] [address] Feb, [facility] [address] [id number] [place] [address] Feb, [facility] [address] [id number] [place] [address] Feb, [facility] [address] [id number] [place] [address] Feb, [facility] [address] [id number] [place] [address] Feb, [facility] [address] [id number] [place] [address] Feb, [facility] [address] [id number] [place] [address] Feb, [facility] [address] [id number] [place] [address] Feb, [facility] [address] [id number] [place] [address] Feb, [facility] [address] [id number] [place] [address] Feb, [facility] [address] [id number] [place] [address] Feb, [facility] [address] [id number] [place] [address] Feb, [facility] [address] [id number] [place] [address] Jan, [facility] [address] [id number] [place] [address] Jan, [facility] [address] [id number] [place] [address] Jan, [facility] [address] [id number] [place] [address] Jan, [facility] [address] [id number] [place] [address] Jan, [facility] [address] [id number] [place] [address] Jan, [facility] [address] [id number] [place] [address] Jan, [facility] [address] [id number] [place] [address] Jan, [facility] [address] [id number] [place] [address] Jan, [facility] [address] [id number] [place] [address] Jan, [facility] [address] [id number] [place] [address] Dec, [facility] [address] [id number] [place] [address] 18 Dec, 2011 [facility] [address] [id number] [place] [address] Dec, [facility] [address] [id number] [place] [address] Dec, [facility] [address] [id number] [place] [address] Nov, [facility] [id number] [place] [address] Nov, [facility] [address] [id number] [place] [address] Nov, [facility] [address] [id number] [place] [address] Nov, [facility] [address] [id number] [place] [address] Nov, [facility] [address] [id number] [place] [address] Nov, [facility] [address] [id number] [place] [address] Oct, [facility] [address] [id number] [place] [address] Oct, [facility] [address] [id number] [place] [address] Oct, [facility] [address] [id number] [place] [address] Oct, [facility] [address] [id number] [place] [address] Oct, [facility] [address] [id number] [place] [address] Sep, [facility] [address] [id number] [place] [address] Sep, [facility] [address] [id number] [place] [address] Sep, [facility] [address] [id number] [place] [address] Sep, [facility] [address] [id number] [place] [address] Sep, [facility] [address] [id number] [place] [address] August, [facility] [address] [id number] [place] [address] August, [facility] [address] [id number] [place] [address] August, [facility] [address] [id number] [place] [address] August, [facility] [address] [id number] [place] [address] Jul, [facility] [address] [id number] [place] [address] Jul, [facility] [address] [id number] [place] [address] Jul, [facility] [address] [id number] [place] [address] Jul, [facility] [address] [id number] [place] [address] Jul, [facility] [address] [id number] [place] [address] Jul, [facility] [address] [id number] [place] [address] Jul, [facility] [address] [id number] [place] [address] 10 Jul, 2011 [facility] [address] [id number] [place] [address] Jul, [facility] [address] [id number] [place] [address] Jul, [facility] [address] [id number] [place] [address] 05 Jul, 2011 [facility] [address] [id number] [place] [address] Jul, [facility] [address] [id number] [place] [address] Jul, [facility] [address] [id number] [place] [address] Jul, [facility] [facility] [address] [id number] [place] [address] 28 Jun, 2011 [facility] [address] [id number] [place] [address] 27 Jun, 2011 [facility] [address] [id number] [place] [address] Jun, [facility] [address] [id number] [place] [address] 16 Jun, 2011 [facility] [address] [id number] [place] [address] May, [facility] [address] [id number] [place] [address] May, [facility] [address] [id number] [place] [address] May, [facility] [address] [id number] [place] [address] Apr, [facility] [address] [id number] [place] [address] Apr, [facility] [address] [id number] [place] [address] Apr, [facility] [address] [id number] [place] [address] Apr, [facility] [address] [id number] [place] [address] Apr, [facility] [address] [id number] [place] [address] Mar, [facility] [address] [id number] [place] [address] Mar, [facility] [address] [id number] [place] [address] Mar, [facility] [address] [id number] [place] [address] Mar, [facility] [address] [id number] [place] [address] Mar, [facility] [address] [id number] [place] [address] Mar, [facility] [address] [id number] [place] [address] Mar, [facility] [address] [id number] [place] [address] Feb, [facility] [address] [id number] [place] [address] Feb, [facility] [address] [id number] [place] [address] Feb, [facility] [address] [id number] [place] [address] Feb, [facility] [address] [id number] [place] [address] Feb, [facility] [address] [id number] [place] [address] 14 Feb, 2011 [facility] [address] [id number] [place] [address] Feb, [facility] [address] [id number] [place] [address] Jan, [facility] [address] [id number] [place] [address] 31 Jan, 2011 [facility] [address] [id number] [place] [address] 31 Jan, 2011 [facility] [address] [id number] [place] [address] 18 Jan, 2011 [facility] [address] [id number] [place] [address] Jan, [facility] [address] [id number] [place] [address] 17 Jan, 2011 [facility] [address] [id number] [place] [address] Jun, [facility] [address] [id number] [place] [address] 30 Mar, 2010 [facility] [address] [id number] [place] [address] 20 Mar, 2010 [facility] [address] [id number] [place] [address] 14 Mar, 2010 [facility] [address] [id number] [place] [address] 14 Mar, 2010 [facility] [address] [id number] [place] [address] 13 Mar, 2010 [facility] [address] [id number] [place] [address] 07 Mar, 2010 [facility] [address] [id number] [place] [address] 02 Mar, 2010 [facility] [address] [id number] [place] [address] Mar, [facility] [address] [id number] [place] [address] 30 Feb, 2010 [facility] [address] [id number] [place] [address] 29 Feb, 2010 [facility] [address] [id number] [place] [address] 17 Feb, 2010 [facility] [address] [id number] [place] [address] 17 Feb, 2010 [facility] [address] [id number] [place] [address] 16 Feb, 2010 [facility] [address] [id number] [place] [address] 08 Feb, 2010 [facility] [address] [id number] [place] [address] 04 Feb, 2010 [facility] [address] [id number] [place] [address] Feb, [facility] [address] [id number] [place] [address] 28 Jan, 2010 [facility] [id number] [place] [address] Jan, [facility] [id number] [place] [address] Jan, [facility] [id number] [place] [address] Jan, [facility] [id number] [place] [address] Mar, [facility] [id number] [place] [address] Mar, [facility] [id number] [place] [address] Mar, [facility] [id number] [place] [address] Mar, [facility] [id number] [place] [address] Mar, [facility] [id number] [place] [address] Mar, [facility] [id number] [place] [address] Feb, [facility] [id number] [place] [address] Feb, [facility] [id number] [place] [address] Jan, [facility] [id number] [place] [address] Sep, [facility] [id number] [place] [address] May, IMMUNIZATIONS No Known Immunizations SOCIAL HISTORY [...] [facility] History [facility] Colon resection [facility] - diarrhea/ couldnt urin ate nov 2017 Hospitalization History pain /hip to foot right side 10/16/19 19
--- OUTSIDE RECORDS SUMMARY | 2019-08-28 09:01 | XMS REPORT ---
Author Author Dixon JONES Organization [facility] Address [address] [place] [address] Care Team Providers Care Fill Manager Name Role Phone ROBERTO JONES Unavailable PROBLEMS Type Condition ICD9-CM Code VTI55-KH Code Onset Dates Condition S tatus SNOMED Code Problem HTN (hypertension) I10 Active 3 6893526 Problem Insomnia G47.00 Active 556024950 Problem Constipation K59.00 Active 7726437 8 Problem Anxiety F41.9 Active 62407735 Problem Hyperlipidemia E78.5 Active 73305 004 Problem Chronic pain G89.29 Active 8537249 1 Problem Environmental allergies Z91.09 Active 426110497 Problem Primary insomnia F51.01 Active 397 2004 Problem Chronic kidney disease, stage III (moderate) N18.3 Active 788870625 Problem Psychophysiological insomnia F51.04 A ctive 681333236 Problem Vitamin D deficiency E55.9 Active 35252288 Problem Age-related cataract of both eyes, unspecified age-related cataract type H25.9 Active 78677042 Problem Thoracic back pain, unspecif ied back pain laterality, unspecified chronicity M54.6 Active 740882686 Problem Vision loss H54.7 Active 58161271 1 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 36208666 Problem Schizophrenia, unspecified type F20.9 Active 99398439 Problem Psychophysiological insomnia F51.04 A ctive [id number] ALLERGIES No Information ENCOUNTERS Encounter Location Date Diagnosis [facility] [address] [id number] [place] [address] Apr, [facility] [id number] [place] [address] Apr, [facility] [address] [id number] [place] [address] Apr, Psychophysiological insomnia F51.04 [place] [address] [address] 15 Apr, 2019 Thoracic back pain, unspecified back hao n laterality, unspecified chronicity M54.6 [place] [address] [address] 10 Apr, 2019 Thoracic back pain, unspecified back hao n laterality, unspecified chronicity M54.6 [place] [address] [address] Apr, Anxiety F41.9 [place] [address] [address] Apr, Psychophysiological insomnia F51.04 [place] [address] [address] Mar, Encounter for Medicare annual wellness e [...] both eyes, unspecified age-related cataract type H25.9 [place] [address] [address] Mar, Thoracic back pain, unspecified back hao n laterality, unspecified chronicity M54.6 [place] [address] [address] Mar, Psychophysiological insomnia F51.04 [place] [address] [address] Mar, Thoracic back pain, unspecified back hao n laterality, unspecified chronicity M54.6 and Anxiety F41.9 [place] [address] [address] Mar, Psychophysiological insomnia F51.04 [facility] [address] [address] Mar, [facility] [address] [address] Mar, Psychophysiological insomnia F51.04 [facility] [address] [address] Mar, [facility] [address] [address] Feb, [facility] [address] [address] Feb, Thoracic back pain, unspecified back hao n laterality, unspecified chronicity M54.6 [place] [address] [address] Feb, Anxiety F41.9 and Thoracic back pain, un specified back pain laterality, unspecified chronicity M54.6 [place] [address] [address] Feb, Insomnia G47.00 ; HTN (hypertension) I10 and Constipation K59.00 [place] [address] [address] Feb, [facility] [address] [address] Jan, Thoracic back pain, unspecified back hao n laterality, unspecified chronicity M54.6 [facility] [address] [address] Jan, Anxiety F41.9 [facility] [address] [address] Jan, Anxiety F41.9 [facility] [address] [address] Jan, Anxiety F41.9 and Thoracic back pain, un specified back pain laterality, unspecified chronicity M54.6 [place] [address] [address] Jan, [facility] [address] [address] Jan, [facility] [address] [address] Dec, Thoracic back pain, unspecified back hao n laterality, unspecified chronicity M54.6 [facility] [address] [address] Dec, Thoracic back pain, unspecified back hao n laterality, unspecified chronicity M54.6 [facility] [address] [address] Nov, Thoracic back pain, unspecified back hao n laterality, unspecified chronicity M54.6 [facility] [address] [address] Nov, Anxiety F41.9 and Thoracic back pain, un specified back pain laterality, unspecified chronicity M54.6 [facility] [address] [address] Nov, [facility] [address] [address] Nov, [facility] [address] [address] Nov, [facility] [address] [address] Oct, Thoracic back pain, unspecified back hao n laterality, unspecified chronicity M54.6 [facility] [address] [address] Oct, Anxiety F41.9 and Thoracic back pain, un specified back pain laterality, unspecified chronicity M54.6 [facility] [address] [address] Oct, Schizophrenia, unspecified type F20.9 an d Acute kidney injury N17.9 [facility] [address] [address] Oct, [facility] [address] [address] Oct, [facility] [address] [address] Oct, Thoracic back pain, unspecified back hao n laterality, unspecified chronicity M54.6 [facility] [address] [address] Oct, [facility] [address] [address] Oct, [facility] [address] [address] Sep, Anxiety F41.9 [facility] [address] [address] Sep, [facility] [address] [address] Sep, Thoracic back pain, unspecified back hao n laterality, unspecified chronicity M54.6 [facility] [address] [address] Sep, [facility] [address] [address] Sep, [facility] [address] [address] Sep, [facility] [address] [address] Sep, [facility] [address] [address] Sep, [facility] [address] [address] Sep, [facility] [address] [address] 10 Sep, 2018 Chronic pain G89.29 ; Chronic kidney dis ease, stage III (moderate) N18.3 ; Hyperlipidemia E78.5 and Insomnia G47.00 [facility] [address] [address] Sep, Thoracic back pain, unspecified back hao n laterality, unspecified chronicity M54.6 [facility] [address] [address] August, Anxiety F41.9 [facility] [address] [address] August, Thoracic back pain, unspecified back hao n laterality, unspecified chronicity M54.6 and Anxiety F41.9 [facility] [address] [address] August, 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 [facility] [address] [address] August, 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 [facility] [address] [address] August, [facility] [address] [address] August, [facility] [address] [address] August, Thoracic back pain, unspecified back hao n laterality, unspecified chronicity M54.6 [facility] [address] [address] August, [facility] [address] [address] August, Anxiety F41.9 and Thoracic back pain, un specified back pain laterality, unspecified chronicity M54.6 [facility] [address] [address] Jul, [facility] [address] [address] Jul, Thoracic back pain, unspecified back hao n laterality, unspecified chronicity M54.6 [facility] [address] [address] Jun, Anxiety F41.9 and Thoracic back pain, un specified back pain laterality, unspecified chronicity M54.6 [place] [address] [place] [address] Jun, Anxiety F41.9 and Thoracic back pain, un specified back pain laterality, unspecified chronicity M54.6 [place] [address] [address] Jun, Thoracic back pain, unspecified back hao n laterality, unspecified chronicity M54.6 [place] [address] [address] Jun, Anxiety F41.9 and Thoracic back pain, un specified back pain laterality, unspecified chronicity M54.6 [place] [address] [address] May, [place] [address] [address] May, [place] [address] [address] May, [place] [address] [address] May, Anxiety F41.9 and Encounter for medicati on monitoring Z51.[address] [address] May, Anxiety F41.9 and Thoracic back pain, un specified back pain laterality, unspecified chronicity M54.6 [place] [address] [address] Apr, Hyperlipidemia 272.4 [place] [address] [address] Apr, Chronic pain G89.29 ; Anxiety F41.9 ; Ce rvical radiculopathy M54.12 and Vision loss H54.7 [place] [address] [address] Apr, [place] [address] [address] Apr, Anxiety F41.9 and Thoracic back pain, un specified back pain laterality, unspecified chronicity M54.6 [place] [address] [address] Mar, [place] [address] [address] Mar, Anxiety F41.9 and Thoracic back pain, un specified back pain laterality, unspecified chronicity M54.6 [place] [address] [address] Feb, Anxiety F41.9 and Thoracic back pain, un specified back pain laterality, unspecified chronicity M54.6 [place] [address] [address] Feb, Thoracic back pain, unspecified back hao n laterality, unspecified chronicity M54.6 [place] [address] [address] Jan, [place] [address] [address] Jan, Anxiety F41.9 and Thoracic back pain, un specified back pain laterality, unspecified chronicity M54.6 [place] [address] [address] Dec, Diarrhea of presumed infectious origin R 19.7 [place] [address] [address] Dec, Diarrhea of presumed infectious origin R 19.7 [place] [address] [address] Dec, Thoracic back pain, unspecified back hao n laterality, unspecified chronicity M54.6 [place] [address] [address] Dec, [place] [address] [address] Dec, Anxiety F41.9 and Thoracic back pain, un specified back pain laterality, unspecified chronicity M54.6 [place] [address] [address] Dec, Diarrhea of presumed infectious origin R 19.7 [place] [address] [address] Dec, [place] [address] [address] Dec, Anxiety F41.9 and Thoracic back pain, un specified back pain laterality, unspecified chronicity M54.6 [place] [address] [address] Dec, Anxiety F41.9 and Thoracic back pain, un specified back pain laterality, unspecified chronicity M54.6 [facility] [employer] [address] [place] [id number] Dec, Diarrhea of presumed infectious origin R 19.7 ; Anxiety F41.9 ; Thoracic back pain, unspecified back pain laterality, unspecified chronicity M54.6 and HTN (hypertension) I10 [address] [address] Dec, Anxiety F41.9 [facility] [employer] [address] [place] [id number] Dec, Anxiety F41.9 ; Diarrhea of presumed inf ectious origin R19.7 ; Generalized abdominal pain R10.84 and Localized edema R60.[address] [address] Nov, [facility] [employer] [address] [place] [id number] Nov, Anxiety F41.9 ; Urinary retention R33.9 ; Diarrhea of presumed infectious origin R19.7 ; Weakness R53.1 ; Acute kidney failure, unspecified N17.9 ; Chronic kidney disease, stage III (moderate) N18.3 and Thoracic back pain, unspecified back pain laterality, unspecified chronicity M54.6 [place] [address] [address] Oct, Thoracic back pain, unspecified back hao n laterality, unspecified chronicity M54.6 and Anxiety F41.9 [place] [address] [address] Sep, Thoracic back pain, unspecified back hao n laterality, unspecified chronicity M54.6 and Anxiety F41.9 [place] [address] [address] Sep, Thoracic back pain, unspecified back hao n laterality, unspecified chronicity M54.6 ; Anxiety F41.9 and Encounter for medication monitoring Z51.81 [place] [address] [address] August, [place] [address] [address] August, Thoracic back pain, unspecified back hao n laterality, unspecified chronicity M54.6 and Anxiety F41.9 [place] [address] [address] August, Hyperlipidemia E78.5 and HTN (hypertensi on) I10 [place] [address] [address] August, [place] [address] [address] August, Medicare welcome exam Z00.00 ; Chronic k idney failure N18.9 ; Anxiety F41.9 ; Chronic pain G89.29 ; Insomnia G47.00 ; Hyperlipidemia E78.5 ; HTN (hypertension) I10 and Thoracic back pain, unspecified back pain laterality, unspecified chronicity M54.6 [place] [address] [address] Jul, [id number] [place] [address] Jul, [facility] [address] [address] Jul, [facility] [address] [address] Jul, Anxiety F41.9 [place] [address] [address] Jul, Thoracic back pain, unspecified back hao n laterality, unspecified chronicity M54.6 and Anxiety F41.9 [place] [address] [address] Jun, Thoracic back pain, unspecified back hao n laterality, unspecified chronicity M54.6 and Anxiety F41.9 [place] [address] [address] May, Thoracic back pain, unspecified back hao n laterality, unspecified chronicity M54.6 and Anxiety F41.9 [place] [address] [address] Apr, Thoracic back pain, unspecified back hao n laterality, unspecified chronicity M54.6 and Anxiety F41.9 [place] [address] [address] Mar, [place] [address] [address] Mar, Thoracic back pain, unspecified back hao n laterality, unspecified chronicity M54.6 and Anxiety F41.9 [place] [address] [address] 14 Mar, 2017 Thoracic back pain, unspecified back hao n laterality, unspecified chronicity M54.6 ; HTN (hypertension) I10 ; Hyperlipidemia E78.5 and Anxiety F41.9 [place] [address] [address] Feb, Thoracic back pain, unspecified back hao n laterality, unspecified chronicity M54.6 and Anxiety F41.9 [facility] [address] [address] Nov, [place] [address] [address] Oct, [place] [address] [address] Oct, Thoracic back pain, unspecified back hao n laterality, unspecified chronicity M54.6 [place] [address] [address] Oct, HTN (hypertension) I10 ; Constipation K5 9.00 ; Hyperlipidemia E78.5 ; Thoracic back pain, unspecified back pain laterality, unspecified chronicity M54.6 ; Chronic pain G89.29 ; Anxiety F41.9 ; Chronic kidney failure N18.9 ; Environmental allergies Z91.09 ; Vitamin D deficiency E55.9 and Primary insomnia F51.01 [place] [address] [address] Sep, Anxiety F41.9 [place] [address] [address] Sep, [place] [address] [address] August, Anxiety F41.9 [place] [address] [address] August, [place] [address] [address] Jul, Anxiety F41.9 [place] [address] [address] Jul, [place] [address] [address] Jun, Anxiety F41.9 [place] [address] [address] Jun, [place] [address] [place] [address] May, [facility] [address] [address] May, [facility] [address] [address] May, [facility] [address] [address] Apr, [facility] [address] [address] Apr, [facility] [address] [address] Apr, Anxiety F41.9 [facility] [address] [address] Apr, Anxiety F41.9 [facility] [address] [address] Apr, [facility] [address] [address] Mar, HTN (hypertension) I10 ; Tremor R25.1 ; Hypercholesterolemia E78.0 ; Constipation K59.00 ; Chronic pain G89.29 ; Hyperlipidemia E78.5 ; Insomnia G47.00 ; Anxiety F41.9 and Thoracic back pain, unspecified back pain laterality, unspecified chronicity M54.6 [facility] [address] [address] Mar, Tremor R25.1 ; HTN (hypertension) I10 ; Hypercholesterolemia E78.0 ; Constipation K59.00 ; Chronic pain G89.29 ; Hyperlipidemia E78.5 ; Insomnia G47.00 ; Anxiety F41.9 and Thoracic back pain, unspecified back pain laterality, unspecified chronicity M54.6 [facility] [address] [address] Mar, [facility] [address] [address] Mar, [facility] [id number] [place] [address] Feb, [facility] [address] [address] Jan, [facility] [address] [place] [address] Jan, [facility] [address] [place] [address] Dec, [facility] [address] [address] Nov, [facility] [address] [address] Nov, [facility] [address] [address] Oct, Anxiety F41.9 [facility] [address] [address] Oct, Chronic pain G89.29 [facility] [address] [address] Sep, [facility] [address] [address] Sep, [facility] [address] [address] Sep, [facility] [address] [address] Sep, [facility] [address] [address] 16 Sep, 2015 Chronic pain syndrome G89.4 [facility] [address] [address] 15 Sep, 2015 HTN (hypertension) I10 ; Chronic pain G8 9.29 ; Hypercholesterolemia E78.0 ; Chronic kidney failure N18.9 ; Constipation, unspecified constipation type K59.00 ; Anxiety F41.9 and Thoracic back pain, unspecified back pain laterality, unspecified chronicity M54.6 [facility] [address] [place] [address] August, Chronic pain syndrome G89.4 [facility] [address] [place] [address] August, Chronic pain syndrome G89.4 [facility] [address] [place] [address] Jul, Anxiety disorder, unspecified F41.9 and Chronic pain syndrome G89.4 [facility] [address] [place] [address] Jul, Insomnia, unspecified G47.00 and Chronic pain syndrome G89.4 [facility] [address] [place] [address] Jul, Allergic rhinitis J30.9 [facility] [address] [address] Jul, Constipation, unspecified K59.00 [facility] [address] [place] [address] Jul, [facility] [address] [place] [address] Jun, [facility] [address] [address] Jun, [facility] [address] [place] [address] Jun, [facility] [address] [place] [address] Jun, [facility] [address] [place] [address] Jun, [facility] [address] [address] Jun, [facility] [address] [place] [address] May, [facility] [address] [address] May, [facility] [address] [address] May, Anxiety F41.9 ; Insomnia G47.00 ; Hyperl ipidemia E78.5 ; Chronic pain G89.29 ; HTN (hypertension) I10 ; Environmental allergies V15.09 and Constipation 564.00 [facility] [address] [address] Apr, [facility] [address] [address] Apr, [facility] [address] [address] Apr, [facility] [address] [address] Mar, [facility] [address] [address] Mar, [facility] [address] [address] Mar, [facility] [address] [address] Feb, [facility] [address] [address] Feb, [facility] [address] [address] Feb, [facility] [address] [address] Jan, HTN (hypertension) I10 ; Constipation K5 9.00 ; Chronic pain G89.29 ; Hyperlipidemia E78.5 ; Hypercholesterolemia E78.0 ; Insomnia G47.00 and Anxiety F41.9 [facility] [address] [address] Jan, [facility] [address] [address] Dec, [facility] [id number] [place] [address] Nov, [facility] [address] [place] [address] Oct, Chronic kidney disease, unspecified 585. 9 ; Chronic pain syndrome 338.4 ; Hyperlipidemia 272.4 and Essential hypertension 401.9 [facility] [address] [address] Oct, Chronic kidney disease 585.9 [facility] [address] [place] [address] Oct, [facility] [address] [address] Oct, Chronic kidney disease, unspecified 585. 9 ; Hypercalcemia 275.42 ; Hyperlipidemia 272.4 ; Essential hypertension 401.9 ; Chronic pain syndrome 338.4 ; Insomnia 780.52 ; Constipation 564.00 ; Environmental allergies V15.09 and Anxiety 300.00 [facility] [address] [place] [address] Oct, Chronic kidney disease 585.9 [facility] [address] [place] [address] Oct, [facility] [address] [place] [address] Oct, Chronic kidney disease 585.9 and Hyperli pidemia 272.4 [facility] [id number] [place] [address] Oct, [facility] [address] [place] [address] Oct, [facility] [address] [place] [address] 18 Sep, 2014 [facility] [address] [address] Sep, [facility] [address] [address] Sep, Chronic kidney disease 585.9 and Hyperli pidemia 272.4 [facility] [id number] [place] [address] Sep, [facility] [id number] [place] [address] August, [facility] [id number] [place] [address] August, [facility] [id number] [place] [address] Jul, [facility] [id number] [place] [address] Jul, [facility] [id number] [place] [address] Jun, [facility] [id number] [place] [address] Jun, [facility] [address] [id number] [place] [address] Jun, [facility] [address] [id number] [place] [address] Jun, [facility] [address] [id number] [place] [address] Jun, [facility] [address] [id number] [place] [address] Jun, [facility] [address] [id number] [place] [address] Jun, [facility] [address] [id number] [place] [address] Jun, [facility] [address] [id number] [place] [address] May, [facility] [address] [id number] [place] [address] May, [facility] [address] [id number] [place] [address] May, [facility] [address] [id number] [place] [address] May, [facility] [address] [id number] [place] [address] Apr, [facility] [address] [id number] [place] [address] Apr, [facility] [address] [id number] [place] [address] Apr, [facility] [address] [id number] [place] [address] Apr, [facility] [address] [id number] [place] [address] Apr, [facility] [address] [id number] [place] [address] Apr, [facility] [address] [id number] [place] [address] Apr, [facility] [address] [id number] [place] [address] Apr, [facility] [address] [id number] [place] [address] Apr, [facility] [address] [id number] [place] [address] Apr, [facility] [address] [id number] [place] [address] Apr, [facility] [address] [id number] [place] [address] Mar, [facility] [address] [id number] [place] [address] Mar, [facility] [address] [id number] [place] [address] Feb, [facility] [address] [id number] [place] [address] Feb, [facility] [address] [id number] [place] [address] Feb, [facility] [address] [id number] [place] [address] Feb, [facility] [address] [id number] [place] [address] Feb, [facility] [address] [id number] [place] [address] Feb, [facility] [address] [id number] [place] [address] Feb, [facility] [address] [id number] [place] [address] Feb, [facility] [address] [id number] [place] [address] Feb, [facility] [address] [id number] [place] [address] Feb, [facility] [address] [id number] [place] [address] Jan, [facility] [address] [id number] [place] [address] Jan, [facility] [address] [id number] [place] [address] Jan, [facility] [address] [id number] [place] [address] Jan, [facility] [address] [id number] [place] [address] Jan, [facility] [address] [id number] [place] [address] Jan, [facility] [address] [id number] [place] [address] Jan, [facility] [address] [id number] [place] [address] Jan, 2013 [facility] [address] [id number] [place] [address] 16 Jan, 2013 [facility] [address] [id number] [place] [address] Jan, [facility] [address] [id number] [place] [address] Jan, [facility] [address] [facility] [id number] [place] [address] Dec, [facility] [address] [id number] [place] [address] Dec, 2013 [facility] [address] [facility] [id number] [place] [address] Dec, 2013 [facility] [address] [id number] [place] [address] Dec, [facility] [address] [id number] [place] [address] Dec, [facility] [address] [id number] [place] [address] Dec, [facility] [address] [id number] [place] [address] Dec, [facility] [address] [id number] [place] [address] Dec, [facility] [address] [id number] [place] [address] Nov, [facility] [address] [id number] [place] [address] Nov, [facility] [address] [id number] [place] [address] Nov, [facility] [address] [id number] [place] [address] Nov, [facility] [address] [id number] [place] [address] Nov, [facility] [address] [id number] [place] [address] Nov, [facility] [address] [id number] [place] [address] Nov, [facility] [address] [facility] [id number] [place] [address] Nov, [facility] [address] [id number] [place] [address] Oct, [facility] [address] [id number] [place] [address] Oct, [facility] [address] [id number] [place] [address] Oct, [facility] [address] [facility] [id number] [place] [address] Oct, [facility] [address] [id number] [place] [address] Sep, [facility] [address] [id number] [place] [address] Sep, [facility] [address] [id number] [place] [address] Sep, [facility] [address] [id number] [place] [address] Sep, [facility] [address] [id number] [place] [address] Sep, [facility] [address] [id number] [place] [address] Sep, [facility] [address] [id number] [place] [address] Sep, [facility] [address] [id number] [place] [address] Sep, [facility] [address] [id number] [place] [address] August, [facility] [address] [id number] [place] [address] August, [facility] [address] [id number] [place] [address] August, [facility] [address] [id number] [place] [address] August, [facility] [address] [facility] [id number] [place] [address] August, [facility] [address] [id number] [place] [address] August, [facility] [address] [id number] [place] [address] August, [facility] [address] [id number] [place] [address] August, [facility] [address] [id number] [place] [address] August, [facility] [address] [id number] [place] [address] August, [facility] [address] [id number] [place] [address] Jul, [facility] [address] [id number] [place] [address] Jul, [facility] [address] [id number] [place] [address] Jul, [facility] [address] [id number] [place] [address] Jul, [facility] [address] [id number] [place] [address] Jul, [facility] [address] [id number] [place] [address] Jul, [facility] [address] [id number] [place] [address] Jul, [facility] [address] [id number] [place] [address] Jul, [facility] [address] [id number] [place] [address] Jun, [facility] [address] [id number] [place] [address] Jun, [facility] [address] [id number] [place] [address] Jun, [facility] [address] [facility] [id number] [place] [address] Jun, [facility] [address] [id number] [place] [address] Jun, [facility] [address] [id number] [place] [address] Jun, [facility] [address] [id number] [place] [address] May, [facility] [address] [id number] [place] [address] May, [facility] [address] [id number] [place] [address] May, [facility] [address] [id number] [place] [address] May, [facility] [address] [id number] [place] [address] May, [facility] [address] [id number] [place] [address] May, [facility] [address] [id number] [place] [address] May, [facility] [address] [id number] [place] [address] Apr, [facility] [address] [id number] [place] [address] Apr, [facility] [address] [id number] [place] [address] Apr, [facility] [address] [id number] [place] [address] Apr, [facility] [address] [id number] [place] [address] Apr, [facility] [address] [id number] [place] [address] Apr, [facility] [address] [id number] [place] [address] Mar, [facility] [address] [id number] [place] [address] Mar, [facility] [address] [id number] [place] [address] Mar, [facility] [address] [id number] [place] [address] Mar, [facility] [address] [id number] [place] [address] Mar, [facility] [address] [id number] [place] [address] Mar, [facility] [address] [id number] [place] [address] Mar, [facility] [address] [id number] [place] [address] Mar, [facility] [address] [id number] [place] [address] Mar, [facility] [address] [id number] [place] [address] Mar, [facility] [address] [id number] [place] [address] Feb, [facility] [address] [id number] [place] [address] Feb, [facility] [address] [id number] [place] [address] Feb, [facility] [address] [id number] [place] [address] Feb, [facility] [address] [id number] [place] [address] 14 Feb, 2013 [facility] [address] [id number] [place] [address] 14 Feb, 2013 [facility] [address] [id number] [place] [address] Feb, [facility] [address] [facility] [id number] [place] [address] Feb, [facility] [address] [id number] [place] [address] Feb, [facility] [address] [id number] [place] [address] Feb, [facility] [address] [id number] [place] [address] Jan, [facility] [address] [facility] [id number] [place] [address] Jan, [facility] [address] [id number] [place] [address] Jan, [facility] [address] [id number] [place] [address] Jan, [facility] [address] [id number] [place] [address] Jan, [facility] [address] [id number] [place] [address] Jan, [facility] [address] [id number] [place] [address] Jan, [facility] [address] [id number] [place] [address] Jan, [facility] [address] [id number] [place] [address] Jan, [facility] [address] [facility] [id number] [place] [address] 25 Dec, 2012 [facility] [address] [id number] [place] [address] 23 Dec, 2012 [facility] [address] [id number] [place] [address] 21 Dec, 2012 [facility] [address] [id number] [place] [address] 13 Dec, 2012 [facility] [address] [id number] [place] [address] Nov, [facility] [address] [id number] [place] [address] Nov, [facility] [address] [id number] [place] [address] Nov, [facility] [address] [id number] [place] [address] Nov, [facility] [address] [facility] [id number] [place] [address] Nov, [facility] [address] [id number] [place] [address] Nov, [facility] [address] [id number] [place] [address] Oct, [facility] [address] [id number] [place] [address] Oct, [facility] [address] [id number] [place] [address] Oct, [facility] [address] [id number] [place] [address] Oct, [facility] [address] [id number] [place] [address] Sep, [facility] [address] [id number] [place] [address] Sep, [facility] [address] [id number] [place] [address] Sep, [facility] [address] [id number] [place] [address] Sep, [facility] [address] [id number] [place] [address] Sep, [facility] [address] [id number] [place] [address] August, [facility] [address] [id number] [place] [address] 2012 [facility] [address] [id number] [place] [address] Jul, [facility] [address] [id number] [place] [address] 19 Jul, 2012 [facility] [address] [id number] [place] [address] 15 Jul, 2012 [facility] [address] [id number] [place] [address] 09 Jul, 2012 [facility] [address] [id number] [place] [address] 08 Jul, 2012 [facility] [address] [id number] [place] [address] 26 Jun, 2012 [facility] [address] [id number] [place] [address] Jun, [facility] [address] [id number] [place] [address] 15 Jun, 2012 [facility] [address] [id number] [place] [address] 06 Jun, 2012 [facility] [address] [id number] [place] [address] Jun, [facility] [address] [id number] [place] [address] 28 May, 2012 [facility] [address] [id number] [place] [address] 27 May, 2012 [facility] [address] [id number] [place] [address] 25 May, 2012 [facility] [address] [id number] [place] [address] 21 May, 2012 [facility] [address] [id number] [place] [address] 20 May, 2012 [facility] [address] [id number] [place] [address] 14 May, 2012 [facility] [address] [id number] [place] [address] May, [facility] [address] [id number] [place] [address] May, [facility] [address] [id number] [place] [address] May, [facility] [address] [id number] [place] [address] Apr, [facility] [address] [id number] [place] [address] Apr, [facility] [address] [id number] [place] [address] Apr, [facility] [address] [id number] [place] [address] Apr, [facility] [address] [id number] [place] [address] Apr, [facility] [address] [id number] [place] [address] Mar, [facility] [address] [id number] [place] [address] Mar, [facility] [address] [id number] [place] [address] Mar, [facility] [address] [id number] [place] [address] Mar, [facility] [address] [id number] [place] [address] Mar, [facility] [address] [id number] [place] [address] Mar, [facility] [address] [id number] [place] [address] Mar, [facility] [address] [id number] [place] [address] Mar, [facility] [address] [id number] [place] [address] 07 Mar, 2012 [facility] [address] [id number] [place] [address] Mar, [facility] [address] [id number] [place] [address] Feb, [facility] [address] [id number] [place] [address] Feb, [facility] [address] [id number] [place] [address] Feb, [facility] [address] [id number] [place] [address] Feb, [facility] [address] [id number] [place] [address] Feb, [facility] [address] [id number] [place] [address] Feb, [facility] [address] [id number] [place] [address] Feb, [facility] [address] [id number] [place] [address] Feb, [facility] [address] [id number] [place] [address] 16 Feb, 2012 [facility] [address] [id number] [place] [address] 16 Feb, 2012 [facility] [address] [id number] [place] [address] Feb, [facility] [address] [id number] [place] [address] 13 Feb, 2012 [facility] [address] [id number] [place] [address] Feb, [facility] [address] [id number] [place] [address] Feb, [facility] [address] [id number] [place] [address] Feb, [facility] [address] [id number] [place] [address] 08 Feb, 2012 [facility] [address] [id number] [place] [address] Feb, [facility] [address] [id number] [place] [address] Feb, [facility] [address] [id number] [place] [address] Jan, [facility] [address] [id number] [place] [address] Jan, [facility] [address] [id number] [place] [address] Jan, [facility] [address] [id number] [place] [address] Jan, [facility] [address] [id number] [place] [address] Jan, [facility] [address] [id number] [place] [address] Jan, [facility] [address] [id number] [place] [address] Jan, [facility] [address] [id number] [place] [address] Jan, [facility] [address] [id number] [place] [address] Jan, [facility] [address] [id number] [place] [address] Jan, [facility] [address] [id number] [place] [address] 24 Dec, 2011 [facility] [address] [id number] [place] [address] 18 Sep, 2011 [facility] [address] [id number] [place] [address] Dec, 2011 [facility] [address] [id number] [place] [address] Dec2011 [facility] [id number] [place] [address] Nov, [facility] [address] [id number] [place] [address] Nov, [facility] [address] [id number] [place] [address] Nov, [facility] [address] [id number] [place] [address] Nov, [facility] [address] [id number] [place] [address] Nov, [facility] [address] [id number] [place] [address] Nov, [facility] [address] [id number] [place] [address] Oct, [facility] [address] [id number] [place] [address] Oct, [facility] [address] [id number] [place] [address] Oct, [facility] [address] [id number] [place] [address] Oct, [facility] [address] [id number] [place] [address] Oct, [facility] [address] [id number] [place] [address] Sep, [facility] [address] [id number] [place] [address] Sep, [facility] [address] [id number] [place] [address] Sep, [facility] [address] [id number] [place] [address] Sep, [facility] [address] [id number] [place] [address] Sep, [facility] [address] [id number] [place] [address] August, [facility] [address] [id number] [place] [address] August, [facility] [address] [id number] [place] [address] August, [facility] [address] [id number] [place] [address] August, [facility] [address] [id number] [place] [address] Jul, [facility] [address] [id number] [place] [address] Jul, [facility] [address] [id number] [place] [address] Jul, [facility] [address] [id number] [place] [address] Jul, [facility] [address] [id number] [place] [address] Jul, [facility] [address] [id number] [place] [address] Jul, [facility] [address] [id number] [place] [address] Jul, [facility] [address] [id number] [place] [address] Jul, [facility] [address] [id number] [place] [address] Jul, [facility] [address] [id number] [place] [address] Jul, [facility] [address] [id number] [place] [address] 05 Jul, 2011 [facility] [address] [id number] [place] [address] Jul, [facility] [address] [id number] [place] [address] Jul, [facility] [address] [id number] [place] [address] 02 Jul, 2011 [facility] [address] [id number] [place] [address] Jun, [facility] [address] [id number] [place] [address] Jun, [facility] [address] [id number] [place] [address] Jun, [facility] [address] [id number] [place] [address] Jun, [facility] [address] [id number] [place] [address] May, [facility] [address] [id number] [place] [address] 16 May, 2011 [facility] [address] [id number] [place] [address] May, [facility] [address] [id number] [place] [address] Apr, [facility] [address] [id number] [place] [address] Apr, [facility] [address] [id number] [place] [address] Apr, [facility] [address] [id number] [place] [address] Apr, [facility] [address] [id number] [place] [address] Apr, [facility] [address] [id number] [place] [address] Mar, [facility] [id number] [place] [address] Mar, [facility] [address] [id number] [place] [address] Mar, [facility] [address] [id number] [place] [address] Mar, [facility] [address] [id number] [place] [address] 16 Mar, 2011 [facility] [address] [id number] [place] [address] Mar, [facility] [address] [id number] [place] [address] Mar, [facility] [address] [id number] [place] [address] Feb, [facility] [address] [id number] [place] [address] Feb, [facility] [address] [id number] [place] [address] Feb, [facility] [address] [id number] [place] [address] Feb, [facility] [id number] [place] [address] Feb, [facility] [address] [id number] [place] [address] 14 Feb, 2011 [facility] [address] [id number] [place] [address] Feb, [facility] [address] [id number] [place] [address] 31 Jan, 2011 [facility] [address] [id number] [place] [address] 31 Jan, 2011 [facility] [address] [id number] [place] [address] 31 Jan, 2011 [facility] [address] [id number] [place] [address] 18 Jan, 2011 [facility] [address] [id number] [place] [address] 17 Jan, 2011 [facility] [address] [id number] [place] [address] 17 Jan, 2011 [facility] [address] [id number] [place] [address] 17 Jun, 2010 [facility] [address] [id number] [place] [address] 30 Mar, 2010 [facility] [address] [id number] [place] [address] 20 Mar, 2010 [facility] [address] [id number] [place] [address] 14 Mar, 2010 [facility] [address] [id number] [place] [address] 14 Mar, 2010 [facility] [address] [id number] [place] [address] 13 Mar, 2010 [facility] [address] [id number] [place] [address] 07 Mar, 2010 [facility] [address] [id number] [place] [address] Mar, [facility] [address] [id number] [place] [address] Mar, [facility] [address] [id number] [place] [address] 30 Feb, 2010 [facility] [address] [id number] [place] [address] 29 Feb, 2010 [facility] [address] [id number] [place] [address] Feb, [facility] [address] [id number] [place] [address] Feb, [facility] [address] [id number] [place] [address] 16 Feb, 2010 [facility] [address] [id number] [place] [address] 08 Feb, 2010 [facility] [address] [id number] [place] [address] Feb, [facility] [address] [id number] [place] [address] Feb, [facility] [id number] [place] [address] 28 Jan, 2010 [facility] [id number] [place] [address] Jan, [facility] [id number] [place] [address] Jan, [facility] [id number] [place] [address] Jan, [facility] [id number] [place] [address] Mar, [facility] [id number] [place] [address] Mar, [facility] [id number] [place] [address] Mar, [facility] [id number] [place] [address] Mar, [facility] [id number] [place] [address] 14 Mar, 2009 [facility] [id number] [place] [address] Mar, [facility] [id number] [place] [address] Feb, [facility] [id number] [place] [address] Feb, [facility] [id number] [place] [address] Jan, [facility] [id number] [place] [address] Sep, [facility] [id number] [place] [address] 18 May, 2008 IMMUNIZATIONS No Known Immunizations [...] Hospitalization History [facility] [place]- Spontane ous Pneumothorax Hospitalization History [facility]- Colon resection Hospitalization History [facility] - diarrhea/ couldnt urin ate nov 2017 Hospitalization History pain /hip to foot right side 10/16/19 19
--- OUTSIDE RECORDS SUMMARY | 2019-08-28 09:02 | XMS REPORT ---
Author Author Dixon Lundberg Doctor Organization [facility] Address Unknown Phone Unavailable Care Team Providers Care Medical Records Supervisor Name Role Phone Migration, Doctor Unavailable Unavailable PROBLEMS Type Condition ICD9-CM Code FVY89-QT Code Onset Dates Condition S tatus SNOMED Code Problem HTN (hypertension) I10 Active 3 0713739 Problem Insomnia G47.00 Active 716445916 Problem Constipation K59.00 Active 0207606 8 Problem Anxiety F41.9 Active 50383047 Problem Hyperlipidemia E78.5 Active 11300 004 Problem Chronic pain G89.29 Active 8878290 1 Problem Environmental allergies Z91.09 Active 712588978 Problem Primary insomnia F51.01 Active 397 2004 Problem Chronic kidney disease, stage III (moderate) N18.3 Active 006860351 Problem Psychophysiological insomnia F51.04 A ctive 441761170 Problem Vitamin D deficiency E55.9 Active 88787274 Problem Age-related cataract of both eyes, unspecified age-related cataract type H25.9 Active 33718113 Problem Thoracic back pain, unspecif ied back pain laterality, unspecified chronicity M54.6 Active 389493190 Problem Vision loss H54.7 Active 23662461 1 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 28036480 Problem Schizophrenia, unspecified type F20.9 Active 01280358 Problem Psychophysiological insomnia F51.04 A ctive [id number] ALLERGIES No Information ENCOUNTERS Encounter Location Date Diagnosis [place] [id number] [place] [address] Apr, [place] [id number] [place] [address] Apr, Psychophysiological insomnia F51.04 [place] [id number] [place] [address] Apr, Thoracic back pain, unspecified back hao n laterality, unspecified chronicity M54.6 [place] [id number] [place] [address] Apr, Thoracic back pain, unspecified back hao n laterality, unspecified chronicity M54.6 [place] [address] [address] Apr, Anxiety F41.9 [place] [address] [address] Apr, Psychophysiological insomnia F51.04 [place] [address] [address] Mar, Encounter for Medicare annual wellness e [...] both eyes, unspecified age-related cataract type H25.9 [place] [address] [address] Mar, Thoracic back pain, unspecified back hao n laterality, unspecified chronicity M54.6 [place] [address] [address] Mar, Psychophysiological insomnia F51.04 [place] [address] [address] Mar, Thoracic back pain, unspecified back hao n laterality, unspecified chronicity M54.6 and Anxiety F41.9 [place] [address] [address] Mar, Psychophysiological insomnia F51.04 [place] [address] [address] Mar, [place] [address] [address] Mar, Psychophysiological insomnia F51.04 [facility] [address] [address] Mar, [facility] [address] [address] Feb, [facility] [address] [address] Feb, Thoracic back pain, unspecified back hao n laterality, unspecified chronicity M54.6 [facility] [address] [address] Feb, Anxiety F41.9 and Thoracic back pain, un specified back pain laterality, unspecified chronicity M54.6 [place] [address] [address] Feb, Insomnia G47.00 ; HTN (hypertension) I10 and Constipation K59.00 [place] [address] [address] Feb, [facility] [address] [address] Jan, Thoracic back pain, unspecified back hao n laterality, unspecified chronicity M54.6 [place] [address] [address] Jan, Anxiety F41.9 [place] [address] [address] Jan, Anxiety F41.9 [facility] [address] [address] Jan, Anxiety F41.9 and Thoracic back pain, un specified back pain laterality, unspecified chronicity M54.6 [place] [address] [address] Jan, [facility] [address] [address] Jan, [facility] [address] [address] Dec, Thoracic back pain, unspecified back hao n laterality, unspecified chronicity M54.6 [facility] [address] [address] Dec, Thoracic back pain, unspecified back hao n laterality, unspecified chronicity M54.6 [facility] [address] [address] Nov, Thoracic back pain, unspecified back hao n laterality, unspecified chronicity M54.6 [facility] [address] [address] Nov, Anxiety F41.9 and Thoracic back pain, un specified back pain laterality, unspecified chronicity M54.6 [facility] [address] [address] Nov, [facility] [address] [address] Nov, [facility] [address] [address] Nov, [facility] [address] [address] Oct, Thoracic back pain, unspecified back hao n laterality, unspecified chronicity M54.6 [facility] [address] [address] Oct, Anxiety F41.9 and Thoracic back pain, un specified back pain laterality, unspecified chronicity M54.6 [facility] [address] [address] Oct, Schizophrenia, unspecified type F20.9 an d Acute kidney injury N17.9 [facility] [address] [address] Oct, [facility] [address] [address] Oct, [facility] [address] [address] Oct, Thoracic back pain, unspecified back hao n laterality, unspecified chronicity M54.6 [facility] [address] [address] Oct, [facility] [address] [address] Oct, [facility] [address] [address] Sep, Anxiety F41.9 [facility] [address] [address] Sep, [facility] [address] [address] Sep, Thoracic back pain, unspecified back hao n laterality, unspecified chronicity M54.6 [facility] [address] [address] Sep, [facility] [address] [address] Sep, [facility] [address] [address] Sep, [facility] [address] [address] Sep, [facility] [address] [address] Sep, [facility] [address] [address] Sep, [facility] [address] [address] 10 Sep, 2018 Chronic pain G89.29 ; Chronic kidney dis ease, stage III (moderate) N18.3 ; Hyperlipidemia E78.5 and Insomnia G47.00 [facility] [address] [address] Sep, Thoracic back pain, unspecified back hao n laterality, unspecified chronicity M54.6 [facility] [address] [address] August, Anxiety F41.9 [facility] [address] [address] August, Thoracic back pain, unspecified back hao n laterality, unspecified chronicity M54.6 and Anxiety F41.9 [facility] [address] [address] August, 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 [facility] [address] [address] August, 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 [facility] [address] [address] August, [facility] [address] [address] August, [facility] [address] [address] August, Thoracic back pain, unspecified back hao n laterality, unspecified chronicity M54.6 [facility] [address] [address] August, [facility] [address] [address] August, Anxiety F41.9 and Thoracic back pain, un specified back pain laterality, unspecified chronicity M54.6 [facility] [address] [address] Jul, [facility] [address] [address] Jul, Thoracic back pain, unspecified back hao n laterality, unspecified chronicity M54.6 [facility] [address] [address] Jun, Anxiety F41.9 and Thoracic back pain, un specified back pain laterality, unspecified chronicity M54.6 [facility] [address] [address] 08 Jun, 2018 Anxiety F41.9 and Thoracic back pain, un specified back pain laterality, unspecified chronicity M54.6 [place] [address] [address] 07 Jun, 2018 Thoracic back pain, unspecified back hao n laterality, unspecified chronicity M54.6 [place] [address] [address] Jun, Anxiety F41.9 and Thoracic back pain, un specified back pain laterality, unspecified chronicity M54.6 [place] [address] [address] May, [place] [address] [address] May, [place] [address] [address] May, [place] [address] [address] May, Anxiety F41.9 and Encounter for medicati on monitoring Z51.81 [place] [address] [address] 05 May, 2018 Anxiety F41.9 and Thoracic back pain, un specified back pain laterality, unspecified chronicity M54.6 [place] [address] [address] Apr, Hyperlipidemia 272.4 [place] [address] [address] Apr, Chronic pain G89.29 ; Anxiety F41.9 ; Ce rvical radiculopathy M54.12 and Vision loss H54.7 [place] [address] [address] Apr, [place] [address] [address] Apr, Anxiety F41.9 and Thoracic back pain, un specified back pain laterality, unspecified chronicity M54.6 [facility] [address] [address] Mar, [place] [address] Mar, Anxiety F41.9 and Thoracic back pain, un specified back pain laterality, unspecified chronicity M54.6 [place] [address] [address] 14 Feb, 2018 Anxiety F41.9 and Thoracic back pain, un specified back pain laterality, unspecified chronicity M54.6 [place] [address] [address] 07 Feb, 2018 Thoracic back pain, unspecified back hao n laterality, unspecified chronicity M54.6 [place] [address] [address] 29 Jan, 2018 [place] [address] [address] Jan, Anxiety F41.9 and Thoracic back pain, un specified back pain laterality, unspecified chronicity M54.6 [place] [address] [address] Dec, Diarrhea of presumed infectious origin R 19.7 [place] [address] [address] Dec, Diarrhea of presumed infectious origin R 19.7 [place] [address] [address] 18 Dec, 2017 Thoracic back pain, unspecified back hao n laterality, unspecified chronicity M54.6 [place] [address] [address] Dec, [facility] [address] [address] Dec, Anxiety F41.9 and Thoracic back pain, un specified back pain laterality, unspecified chronicity M54.6 [place] [address] [address] Dec, Diarrhea of presumed infectious origin R 19.7 [place] [address] [address] Dec, [place] [address] [address] Dec, Anxiety F41.9 and Thoracic back pain, un specified back pain laterality, unspecified chronicity M54.6 [place] [address] [address] Dec, Anxiety F41.9 and Thoracic back pain, un specified back pain laterality, unspecified chronicity M54.6 [facility] [address] [place] [id number] Dec, Diarrhea of presumed infectious origin R 19.7 ; Anxiety F41.9 ; Thoracic back pain, unspecified back pain laterality, unspecified chronicity M54.6 and HTN (hypertension) I10 [address] [address] Dec, Anxiety F41.9 [facility] [address] [place] [id number] Dec, Anxiety F41.9 ; Diarrhea of presumed inf ectious origin R19.7 ; Generalized abdominal pain R10.84 and Localized edema R60.0 [place] [address] [address] Nov, [facility] [address] [place] [id number] Nov, Anxiety F41.9 ; Urinary retention R33.9 ; Diarrhea of presumed infectious origin R19.7 ; Weakness R53.1 ; Acute kidney failure, unspecified N17.9 ; Chronic kidney disease, stage III (moderate) N18.3 and Thoracic back pain, unspecified back pain laterality, unspecified chronicity M54.6 [place] [address] [address] Oct, Thoracic back pain, unspecified back hoa n laterality, unspecified chronicity M54.6 and Anxiety F41.9 [place] [address] [address] Sep, Thoracic back pain, unspecified back hao n laterality, unspecified chronicity M54.6 and Anxiety F41.9 [place] [address] [address] Sep, Thoracic back pain, unspecified back hao n laterality, unspecified chronicity M54.6 ; Anxiety F41.9 and Encounter for medication monitoring Z51.81 [place] [address] [address] August, [place] [address] [address] August, Thoracic back pain, unspecified back hao n laterality, unspecified chronicity M54.6 and Anxiety F41.9 [place] [address] [address] August, Hyperlipidemia E78.5 and HTN (hypertensi on) I10 [place] [address] [address] August, [place] [address] [address] August, Medicare welcome exam Z00.00 ; Chronic k idney failure N18.9 ; Anxiety F41.9 ; Chronic pain G89.29 ; Insomnia G47.00 ; Hyperlipidemia E78.5 ; HTN (hypertension) I10 and Thoracic back pain, unspecified back pain laterality, unspecified chronicity M54.6 [place] [address] [address] Jul, [place] [address] [address] Jul, [place] [address] [address] Jul, [place] [address] [address] Jul, Anxiety F41.9 [place] [address] [address] Jul, Thoracic back pain, unspecified back hao n laterality, unspecified chronicity M54.6 and Anxiety F41.9 [place] [address] [address] Jun, Thoracic back pain, unspecified back hao n laterality, unspecified chronicity M54.6 and Anxiety F41.9 [place] [address] [address] May, Thoracic back pain, unspecified back hao n laterality, unspecified chronicity M54.6 and Anxiety F41.9 [place] [address] [address] Apr, Thoracic back pain, unspecified back hao n laterality, unspecified chronicity M54.6 and Anxiety F41.9 [place] [address] [address] Mar, [place] [address] [address] Mar, Thoracic back pain, unspecified back hao n laterality, unspecified chronicity M54.6 and Anxiety F41.9 [place] [address] [address] Mar, Thoracic back pain, unspecified back hao n laterality, unspecified chronicity M54.6 ; HTN (hypertension) I10 ; Hyperlipidemia E78.5 and Anxiety F41.9 [place] [address] [address] Feb, Thoracic back pain, unspecified back hao n laterality, unspecified chronicity M54.6 and Anxiety F41.9 [place] [address] [address] Nov, [place] [address] [address] Oct, [facility] [address] [address] Oct, Thoracic back pain, unspecified back hao n laterality, unspecified chronicity M54.6 [facility] [address] [address] Oct, HTN (hypertension) I10 ; Constipation K5 9.00 ; Hyperlipidemia E78.5 ; Thoracic back pain, unspecified back pain laterality, unspecified chronicity M54.6 ; Chronic pain G89.29 ; Anxiety F41.9 ; Chronic kidney failure N18.9 ; Environmental allergies Z91.09 ; Vitamin D deficiency E55.9 and Primary insomnia F51.01 [place] [address] [address] Sep, Anxiety F41.9 [place] [address] [address] Sep, [facility] [address] [address] August, Anxiety F41.9 [place] [address] [address] August, [facility] [address] [address] Jul, Anxiety F41.9 [place] [address] [address] Jul, [facility] [address] [address] Jun, Anxiety F41.9 [facility] [address] [address] Jun, [facility] [address] [address] May, [facility] [address] [address] May, [place] [address] [place] [address] May, [facility] [address] [address] Apr, [facility] [address] [address] Apr, [facility] [address] [address] Apr, Anxiety F41.9 [facility] [address] [address] Apr, Anxiety F41.9 [facility] [address] [address] Apr, [facility] [address] [address] Mar, HTN (hypertension) I10 ; Tremor R25.1 ; Hypercholesterolemia E78.0 ; Constipation K59.00 ; Chronic pain G89.29 ; Hyperlipidemia E78.5 ; Insomnia G47.00 ; Anxiety F41.9 and Thoracic back pain, unspecified back pain laterality, unspecified chronicity M54.6 [facility] [address] [address] Mar, Tremor R25.1 ; HTN (hypertension) I10 ; Hypercholesterolemia E78.0 ; Constipation K59.00 ; Chronic pain G89.29 ; Hyperlipidemia E78.5 ; Insomnia G47.00 ; Anxiety F41.9 and Thoracic back pain, unspecified back pain laterality, unspecified chronicity M54.6 [facility] [address] [address] Mar, [facility] [address] [address] Mar, [facility] [address] [address] Feb, [facility] [address] [address] Jan, [facility] [address] [place] [address] Jan, [facility] [address] [address] Dec, [facility] [address] [place] [address] Nov, [facility] [address] [address] Nov, [facility] [address] [address] Oct, Anxiety F41.9 [facility] [address] [address] Oct, Chronic pain G89.29 [facility] [address] [address] Sep, [facility] [address] [address] Sep, [facility] [address] [address] Sep, [facility] [address] [address] Sep, [facility] [address] [address] Sep, Chronic pain syndrome G89.4 [facility] [address] [address] Sep, HTN (hypertension) I10 ; Chronic pain G8 9.29 ; Hypercholesterolemia E78.0 ; Chronic kidney failure N18.9 ; Constipation, unspecified constipation type K59.00 ; Anxiety F41.9 and Thoracic back pain, unspecified back pain laterality, unspecified chronicity M54.6 [facility] [address] [place] [address] August, Chronic pain syndrome G89.4 [facility] [address] [address] August, Chronic pain syndrome G89.4 [facility] [address] [address] Jul, Anxiety disorder, unspecified F41.9 and Chronic pain syndrome G89.4 [facility] [address] [address] Jul, Insomnia, unspecified G47.00 and Chronic pain syndrome G89.4 [facility] [address] [address] Jul, Allergic rhinitis J30.9 [facility] [address] [address] Jul, Constipation, unspecified K59.00 [facility] [address] [address] Jul, [facility] [address] [address] Jun, [facility] [address] [address] Jun, [facility] [address] [address] Jun, [facility] [address] [address] Jun, [facility] [address] [address] Jun, [facility] [address] [address] Jun, [facility] [address] [address] May, [facility] [address] [address] May, [facility] [address] [address] May, Anxiety F41.9 ; Insomnia G47.00 ; Hyperl ipidemia E78.5 ; Chronic pain G89.29 ; HTN (hypertension) I10 ; Environmental allergies V15.09 and Constipation 564.00 [facility] [address] [address] Apr, [facility] [address] [address] Apr, [facility] [address] [address] Apr, [facility] [address] [address] Mar, [facility] [address] [address] Mar, [facility] [address] [address] Mar, [place] [address] [address] Feb, [facility] [address] [address] Feb, [address] [address] Feb, [facility] [address] [address] Jan, HTN (hypertension) I10 ; Constipation K5 9.00 ; Chronic pain G89.29 ; Hyperlipidemia E78.5 ; Hypercholesterolemia E78.0 ; Insomnia G47.00 and Anxiety F41.9 [facility] [address] [address] Jan, [facility] [address] [address] Dec, [facility] [address] [address] Nov, [facility] [address] [address] Oct, Chronic kidney disease, unspecified 585. 9 ; Chronic pain syndrome 338.4 ; Hyperlipidemia 272.4 and Essential hypertension 401.9 [facility] [address] [address] Oct, Chronic kidney disease 585.9 [facility] [id number] [place] [address] Oct, [facility] [address] [address] Oct, Chronic kidney disease, unspecified 585. 9 ; Hypercalcemia 275.42 ; Hyperlipidemia 272.4 ; Essential hypertension 401.9 ; Chronic pain syndrome 338.4 ; Insomnia 780.52 ; Constipation 564.00 ; Environmental allergies V15.09 and Anxiety 300.00 [facility] [address] [address] Oct, Chronic kidney disease 585.9 [facility] [address] [address] Oct, [facility] [address] [address] Oct, Chronic kidney disease 585.9 and Hyperli pidemia 272.4 [facility] [id number] [place] [address] Oct, [facility] [address] [address] Oct, [facility] [address] [address] Sep, [facility] [address] [address] Sep, [facility] [address] [address] Sep, Chronic kidney disease 585.9 and Hyperli pidemia 272.4 [facility] [address] [address] Sep, [facility] [address] [place] [address] August, [facility] [address] [facility] [id number] [place] [address] August, [facility] [address] [id number] [place] [address] Jul, [facility] [address] [id number] [place] [address] Jul, [facility] [address] [id number] [place] [address] Jun, [facility] [address] [id number] [place] [address] Jun, [facility] [address] [id number] [place] [address] Jun, [facility] [address] [id number] [place] [address] Jun, [facility] [address] [id number] [place] [address] Jun, [facility] [address] [id number] [place] [address] Jun, [facility] [address] [id number] [place] [address] Jun, [facility] [address] [id number] [place] [address] Jun, [facility] [address] [id number] [place] [address] May, [facility] [address] [id number] [place] [address] May, [facility] [address] [id number] [place] [address] May, [facility] [address] [id number] [place] [address] May, [facility] [address] [id number] [place] [address] Apr, [facility] [facility] [id number] [place] [address] Apr, [facility] [id number] [place] [address] Apr, [facility] [id number] [place] [address] Apr, [facility] [id number] [place] [address] Apr, [facility] [id number] [place] [address] Apr, [facility] [id number] [place] [address] Apr, [facility] [id number] [place] [address] Apr, [facility] [id number] [place] [address] Apr, [facility] [id number] [place] [address] Apr, [facility] [id number] [place] [address] Apr, [facility] [id number] [place] [address] Mar, [facility] [id number] [place] [address] Mar, [facility] [id number] [place] [address] Feb, [facility] [id number] [place] [address] Feb, [facility] [id number] [place] [address] Feb, [facility] [id number] [place] [address] Feb, [facility] [id number] [place] [address] Feb, [facility] [id number] [place] [address] Feb, [facility] [id number] [place] [address] Feb, [facility] [id number] [place] [address] Feb, [facility] [id number] [place] [address] Feb, [facility] [id number] [place] [address] Feb, [facility] [id number] [place] [address] Jan, [facility] [id number] [place] [address] Jan, [facility] [id number] [place] [address] Jan, [facility] [id number] [place] [address] Jan, [facility] [id number] [place] [address] Jan, [facility] [id number] [place] [address] Jan, [facility] [id number] [place] [address] Jan, [facility] [id number] [place] [address] Jan, 2013 [facility] [id number] [place] [address] Jan, [facility] [id number] [place] [address] Jan, 2013 [facility] [id number] [place] [address] Jan, 2013 [facility] [address] [id number] [facility] [address] Dec, 2013 [facility] [address] [id number] [place] [address] Dec, 2013 [facility] [address] [facility] [id number] [place] [address] Dec, 2013 [facility] [id number] [place] [address] Dec, 2013 [facility] [address] [facility] [id number] [place] [address] Dec, 2013 [facility] [address] [id number] [place] [address] Dec, 2013 [facility] [id number] [place] [address] Dec, [facility] [id number] [place] [address] Dec, 2013 [facility] [id number] [place] [address] Nov, [facility] [address] [id number] [place] [address] Nov, [facility] [id number] [place] [address] Nov, [facility] [id number] [place] [address] Nov, [facility] [id number] [place] [address] Nov, [facility] [address] [facility] [id number] [place] [address] Nov, [facility] [address] [id number] [place] [address] Nov, [facility] [id number] [place] [address] Nov, [facility] [id number] [place] [address] Oct, [facility] [address] [facility] [id number] [place] [address] Oct, [facility] [id number] [place] [address] Oct, [facility] [id number] [place] [address] Oct, [facility] [id number] [place] [address] Sep, [facility] [address] [facility] [id number] [place] [address] Sep, [facility] [id number] [place] [address] Sep, [facility] [id number] [place] [address] Sep, [facility] [id number] [place] [address] Sep, [facility] [id number] [place] [address] Sep, [facility] [id number] [place] [address] Sep, [facility] [id number] [place] [address] Sep, [facility] [id number] [place] [address] August, [facility] [id number] [place] [address] August, [facility] [id number] [place] [address] August, [facility] [id number] [place] [address] August, [facility] [id number] [place] [address] August, [facility] [id number] [place] [address] August, [facility] [address] [facility] [id number] [place] [address] August, [facility] [id number] [place] [address] August, [facility] [id number] [facility] [place] [address] August, [facility] [id number] [facility] [place] [address] August, [facility] [id number] [facility] [place] [address] Jul, [facility] [id number] [place] [address] Jul, [facility] [id number] [place] [address] Jul, [facility] [id number] [place] [address] Jul, [facility] [id number] [place] [address] Jul, [facility] [id number] [place] [address] Jul, [facility] [id number] [place] [address] Jul, [facility] [id number] [place] [address] Jul, [facility] [id number] [place] [address] Jun, [facility] [id number] [place] [address] Jun, [facility] [id number] [place] [address] Jun, [facility] [id number] [place] [address] Jun, [facility] [id number] [place] [address] Jun, [facility] [address] [facility] [id number] [place] [address] Jun, [facility] [id number] [place] [address] May, [facility] [id number] [place] [address] May, [facility] [id number] [place] [address] May, [facility] [id number] [place] [address] May, [facility] [id number] [place] [address] May, [facility] [id number] [place] [address] May, [facility] [id number] [place] [address] May, [facility] [id number] [place] [address] Apr, [facility] [id number] [place] [address] Apr, [facility] [id number] [place] [address] Apr, [facility] [id number] [place] [address] Apr, [facility] [id number] [place] [address] Apr, [facility] [id number] [place] [address] Apr, [facility] [id number] [place] [address] Mar, [facility] [id number] [place] [address] Mar, [facility] [id number] [place] [address] Mar, [facility] [id number] [place] [address] Mar, [facility] [id number] [place] [address] Mar, [facility] [id number] [place] [address] Mar, [facility] [id number] [place] [address] Mar, [facility] [id number] [place] [address] Mar, [facility] [id number] [place] [address] Mar, [facility] [id number] [place] [address] Mar, [facility] [id number] [place] [address] Feb, [facility] [id number] [place] [address] Feb, [facility] [id number] [place] [address] Feb, [facility] [id number] [place] [address] 25 Feb, 2013 [facility] [id number] [place] [address] 14 Feb, 2013 [facility] [id number] [place] [address] 14 Feb, 2013 [facility] [id number] [place] [address] Feb, [facility] [id number] [place] [address] Feb, [facility] [id number] [place] [address] 08 Feb, 2013 [facility] [address] [facility] [id number] [place] [address] Feb, [facility] [id number] [place] [address] Jan, [facility] [id number] [place] [address] Jan, [facility] [id number] [place] [address] Jan, [facility] [id number] [place] [address] Jan, [facility] [id number] [place] [address] Jan, [facility] [id number] [place] [address] Jan, [facility] [id number] [place] [address] Jan, [facility] [id number] [place] [address] Jan, [facility] [id number] [place] [address] Jan, [facility] [id number] [place] [address] Dec, [facility] [id number] [place] [address] Dec, [facility] [id number] [place] [address] Dec, [facility] [id number] [place] [address] 13 Dec, 2012 [facility] [id number] [place] [address] Nov, [facility] [id number] [place] [address] Nov, [facility] [address] [id number] [place] [address] Nov, [facility] [id number] [place] [address] Nov, [facility] [id number] [place] [address] Nov, [facility] [id number] [place] [address] Nov, [facility] [id number] [place] [address] Oct, [facility] [id number] [place] [address] Oct, [facility] [id number] [place] [address] Oct, [facility] [id number] [place] [address] Oct, [facility] [id number] [place] [address] Sep, [facility] [id number] [place] [address] Sep, [facility] [id number] [place] [address] Sep, [facility] [id number] [place] [address] Sep, [facility] [id number] [place] [address] Sep, [facility] [id number] [place] [address] August, [facility] [id number] [place] [address] August, [facility] [id number] [place] [address] Jul, [facility] [id number] [place] [address] Jul, 2012 [facility] [id number] [facility] [place] [address] 15 Jul, 2012 [facility] [id number] [facility] [place] [address] 09 Jul, 2012 [facility] [id number] [place] [address] 08 Jul, 2012 [facility] [id number] [place] [address] 26 Jun, 2012 [facility] [id number] [facility] [place] [address] 20 Jun, 2012 [facility] [id number] [place] [address] 15 Jun, 2012 [facility] [id number] [place] [address] 06 Jun, 2012 [facility] [id number] [place] [address] Jun, [facility] [id number] [place] [address] 28 May, 2012 [facility] [id number] [place] [address] 27 May, 2012 [facility] [id number] [place] [address] 25 May, 2012 [facility] [id number] [place] [address] 21 May, 2012 [facility] [id number] [place] [address] 20 May, 2012 [facility] [id number] [place] [address] 14 May, 2012 [facility] [id number] [place] [address] 13 May, 2012 [facility] [id number] [place] [address] 08 May, 2012 [facility] [id number] [place] [address] May, [facility] [id number] [place] [address] Apr, [facility] [id number] [place] [address] Apr, [facility] [id number] [place] [address] Apr, [facility] [id number] [place] [address] Apr, [facility] [id number] [place] [address] Apr, [facility] [id number] [place] [address] Mar, [facility] [id number] [place] [address] Mar, [facility] [id number] [place] [address] Mar, [facility] [id number] [place] [address] Mar, [facility] [id number] [place] [address] Mar, [facility] [id number] [place] [address] Mar, [facility] [id number] [place] [address] Mar, [facility] [id number] [place] [address] Mar, [facility] [id number] [place] [address] Mar, [facility] [id number] [place] [address] Mar, [facility] [id number] [place] [address] Feb, [facility] [id number] [place] [address] Feb, [facility] [id number] [place] [address] Feb, [facility] [id number] [place] [address] Feb, [facility] [id number] [place] [address] Feb, [facility] [id number] [place] [address] Feb, [facility] [id number] [place] [address] Feb, [facility] [id number] [place] [address] Feb, [facility] [id number] [place] [address] Feb, [facility] [id number] [place] [address] Feb, [facility] [id number] [place] [address] Feb, [facility] [id number] [place] [address] Feb, [facility] [id number] [place] [address] Feb, [facility] [id number] [place] [address] Feb, [facility] [id number] [place] [address] Feb, [facility] [id number] [place] [address] Feb, [facility] [id number] [place] [address] Feb, [facility] [id number] [place] [address] Feb, [facility] [id number] [place] [address] Jan, [facility] [id number] [place] [address] Jan, [facility] [id number] [place] [address] Jan, [facility] [id number] [place] [address] Jan, [facility] [id number] [place] [address] Jan, [facility] [id number] [place] [address] Jan, [facility] [id number] [place] [address] Jan, [facility] [id number] [place] [address] Jan, [facility] [id number] [place] [address] Jan, [facility] [id number] [place] [address] Jan, [facility] [id number] [place] [address] Dec, [facility] [id number] [place] [address] Dec, [facility] [id number] [place] [address] Dec, [facility] [id number] [place] [address] Dec, [facility] [id number] [place] [address] Nov, [facility] [id number] [place] [address] Nov, [facility] [id number] [place] [address] Nov, [facility] [id number] [place] [address] Nov, [facility] [id number] [place] [address] Nov, [facility] [id number] [place] [address] Nov, [facility] [id number] [place] [address] Oct, [facility] [id number] [place] [address] Oct, [facility] [id number] [place] [address] Oct, [facility] [id number] [place] [address] Oct, [facility] [id number] [place] [address] Oct, [facility] [id number] [place] [address] Sep, [facility] [id number] [place] [address] Sep, [facility] [id number] [place] [address] Sep, [facility] [id number] [place] [address] Sep, [facility] [id number] [place] [address] Sep, [facility] [id number] [place] [address] August, [facility] [id number] [place] [address] August, [facility] [id number] [place] [address] August, [facility] [id number] [place] [address] August, [facility] [id number] [place] [address] 27 Jul, 2011 [facility] [id number] [place] [address] 24 Jul, 2011 [facility] [id number] [place] [address] Jul, [facility] [id number] [place] [address] Jul, [facility] [id number] [place] [address] Jul, [facility] [id number] [place] [address] Jul, [facility] [id number] [place] [address] Jul, [facility] [id number] [place] [address] 10 Jul, 2011 [facility] [id number] [place] [address] Jul, [facility] [id number] [place] [address] Jul, [facility] [id number] [place] [address] 05 Jul, 2011 [facility] [id number] [place] [address] Jul, [facility] [id number] [place] [address] Jul, [facility] [id number] [place] [address] Jul, [facility] [id number] [place] [address] Jun, [facility] [id number] [place] [address] 27 Jun, 2011 [facility] [id number] [place] [address] Jun, [facility] [id number] [place] [address] 16 Jun, 2011 [facility] [id number] [place] [address] May, [facility] [id number] [place] [address] May, [facility] [id number] [place] [address] May, [facility] [id number] [place] [address] Apr, [facility] [id number] [place] [address] Apr, [facility] [id number] [place] [address] Apr, [facility] [id number] [place] [address] Apr, [facility] [id number] [place] [address] Apr, [facility] [id number] [place] [address] Mar, [facility] [id number] [place] [address] Mar, [facility] [id number] [place] [address] Mar, [facility] [id number] [place] [address] Mar, [facility] [id number] [place] [address] Mar, [facility] [id number] [place] [address] Mar, [facility] [id number] [place] [address] Mar, [facility] [id number] [place] [address] Feb, [facility] [id number] [place] [address] Feb, [facility] [id number] [place] [address] Feb, [facility] [id number] [place] [address] Feb, [facility] [id number] [place] [address] 16 Feb, 2011 [facility] [id number] [place] [address] 14 Feb, 2011 [facility] [id number] [place] [address] Feb, [facility] [id number] [place] [address] 31 Jan, 2011 [facility] [id number] [place] [address] 31 Jan, 2011 [facility] [id number] [place] [address] 31 Jan, 2011 [facility] [id number] [place] [address] 18 Jan, 2011 [facility] [id number] [place] [address] 17 Jan, 2011 [facility] [id number] [place] [address] 17 Jan, 2011 [facility] [id number] [place] [address] Jun, [facility] [id number] [place] [address] 30 Mar, 2010 [facility] [id number] [place] [address] 20 Mar, 2010 [facility] [id number] [place] [address] 14 Mar, 2010 [facility] [id number] [place] [address] 14 Mar, 2010 [facility] [facility] [id number] [place] [address] 13 Mar, 2010 [facility] [id number] [place] [address] 07 Mar, 2010 [facility] [id number] [place] [address] 02 Mar, 2010 [facility] [id number] [place] [address] Mar, [facility] [id number] [place] [address] 30 Feb, 2010 [facility] [id number] [place] [address] 29 Feb, 2010 [facility] [id number] [place] [address] 17 Feb, 2010 [facility] [id number] [place] [address] 17 Feb, 2010 [facility] [id number] [place] [address] 16 Feb, 2010 [facility] [id number] [place] [address] 08 Feb, 2010 [facility] [id number] [place] [address] 04 Feb, 2010 [facility] [id number] [place] [address] Feb, [facility] [id number] [place] [address] 28 Jan, 2010 [facility] [id number] [place] [address] Jan, [facility] [id number] [place] [address] Jan, [facility] [id number] [place] [address] Jan, [facility] [id number] [place] [address] Mar, [facility] [id number] [place] [address] Mar, [facility] [id number] [place] [address] Mar, [facility] [id number] [place] [address] Mar, [facility] [id number] [place] [address] Mar, [facility] [id number] [place] [address] Mar, [facility] [id number] [place] [address] Feb, [facility] [id number] [place] [address] Feb, [facility] [id number] [place] [address] Jan, [facility] [id number] [place] [address] Sep, [facility] [id number] [place] [address] May, IMMUNIZATIONS No Known Immunizations SOCIAL HISTORY [...] Hospitalization History [facility] in [place]- Spontane ous Pneumothorax Hospitalization History [facility]- Colon resection Hospitalization History [facility] - diarrhea/ couldnt urin ate nov 2017 Hospitalization History pain /hip to foot right side 10/16/19 19
--- OUTSIDE RECORDS SUMMARY | 2019-08-28 09:03 | XMS REPORT ---
Author Author Dixon Lundberg Doctor Organization [facility] Address Unknown Phone Unavailable Care Team Providers Care Transportation Maintenance Specialist Name Role Phone Migration, Doctor Unavailable Unavailable PROBLEMS Type Condition ICD9-CM Code UWS69-EA Code Onset Dates Condition S tatus SNOMED Code Problem Constipation K59.00 Active 2921137 8 Problem Hyperlipidemia E78.5 Active 44496 004 Problem Insomnia G47.00 Active 562032952 Problem Chronic pain G89.29 Active 5531865 1 Problem Anxiety F41.9 Active 05008929 Problem HTN (hypertension) I10 Active 3 4283009 Problem Environmental allergies Z91.09 Active 256624201 Problem Vitamin D deficiency E55.9 Active 55787855 Problem Chronic kidney disease, stage III (moderate) N18.3 Active 363865437 Problem Psychophysiological insomnia F51.04 A ctive 737059429 Problem Primary insomnia F51.01 Active 397 2004 Problem Age-related cataract of both eyes, unspecified age-related cataract type H25.9 Active 63415796 Problem Thoracic back pain, unspecif ied back pain laterality, unspecified chronicity M54.6 Active 640613584 Problem Vision loss H54.7 Active 11539844 1 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 09914589 Problem Schizophrenia, unspecified type F20.9 Active 85475374 Problem Psychophysiological insomnia F51.04 A ctive [id number] ALLERGIES No Information ENCOUNTERS Encounter Location Date Diagnosis [facility] [address] [id number] [place] [address] Apr, Psychophysiological insomnia F51.04 [facility] [address] [id number] [place] [address] Mar, Encounter for Medicare annual wellness e [...] both eyes, unspecified age-related cataract type H25.9 [place] [address] [address] Mar, Thoracic back pain, unspecified back hao n laterality, unspecified chronicity M54.6 [place] [address] [address] Mar, Psychophysiological insomnia F51.04 [place] [address] [address] Mar, Thoracic back pain, unspecified back hao n laterality, unspecified chronicity M54.6 and Anxiety F41.9 [place] [address] [address] Mar, Psychophysiological insomnia F51.04 [place] [address] [address] Mar, [place] [address] [address] Mar, Psychophysiological insomnia F51.04 [place] [address] [address] Mar, [place] [address] [address] Feb, [place] [address] [address] Feb, Thoracic back pain, unspecified back hao n laterality, unspecified chronicity M54.6 [place] [address] [address] 14 Feb, 2019 Anxiety F41.9 and Thoracic back pain, un specified back pain laterality, unspecified chronicity M54.6 [place] [address] [address] Feb, Insomnia G47.00 ; HTN (hypertension) I10 and Constipation K59.00 [facility] [address] [address] Feb, [place] [address] [address] Jan, Thoracic back pain, unspecified back hao n laterality, unspecified chronicity M54.6 [place] [address] [address] Jan, Anxiety F41.9 [place] [address] [address] Jan, Anxiety F41.9 [place] [address] [address] Jan, Anxiety F41.9 and Thoracic back pain, un specified back pain laterality, unspecified chronicity M54.6 [place] [address] [address] Jan, [place] [address] [address] Jan, [place] [address] [address] Dec, Thoracic back pain, unspecified back hao n laterality, unspecified chronicity M54.6 [place] [address] [address] Dec, Thoracic back pain, unspecified back hao n laterality, unspecified chronicity M54.6 [place] [address] [address] Nov, Thoracic back pain, unspecified back hao n laterality, unspecified chronicity M54.6 [place] [address] [address] Nov, Anxiety F41.9 and Thoracic back pain, un specified back pain laterality, unspecified chronicity M54.6 [place] [address] [address] Nov, [facility] [address] [address] Nov, [facility] [address] [address] Nov, [facility] [address] [address] Oct, Thoracic back pain, unspecified back hao n laterality, unspecified chronicity M54.6 [facility] [address] [address] Oct, Anxiety F41.9 and Thoracic back pain, un specified back pain laterality, unspecified chronicity M54.6 [facility] [address] [address] Oct, Schizophrenia, unspecified type F20.9 an d Acute kidney injury N17.9 [facility] [address] [address] Oct, [facility] [address] [address] Oct, [facility] [address] [address] Oct, Thoracic back pain, unspecified back hao n laterality, unspecified chronicity M54.6 [facility] [address] [address] Oct, [facility] [address] [address] Oct, [facility] [address] [address] Sep, Anxiety F41.9 [facility] [address] [address] Sep, [facility] [address] [address] Sep, Thoracic back pain, unspecified back hao n laterality, unspecified chronicity M54.6 [facility] [address] [place] [id number] [place] [address] Sep, [facility] [address] [address] Sep, [facility] [address] [address] Sep, [facility] [address] [address] Sep, [facility] [address] [address] Sep, [facility] [address] [address] Sep, [facility] [address] [address] Sep, Chronic pain G89.29 ; Chronic kidney dis ease, stage III (moderate) N18.3 ; Hyperlipidemia E78.5 and Insomnia G47.00 [facility] [address] [address] Sep, Thoracic back pain, unspecified back hao n laterality, unspecified chronicity M54.6 [facility] [address] [address] August, Anxiety F41.9 [facility] [address] [address] August, Thoracic back pain, unspecified back hao n laterality, unspecified chronicity M54.6 and Anxiety F41.9 [facility] [address] [address] August, 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 [facility] [address] [address] August, 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 [facility] [address] [address] August, [facility] [address] [address] August, [facility] [address] [address] August, Thoracic back pain, unspecified back hao n laterality, unspecified chronicity M54.6 [facility] [address] [address] August, [facility] [address] [address] August, Anxiety F41.9 and Thoracic back pain, un specified back pain laterality, unspecified chronicity M54.6 [facility] [address] [address] Jul, [facility] [address] [address] Jul, Thoracic back pain, unspecified back hao n laterality, unspecified chronicity M54.6 [facility] [address] [address] Jun, Anxiety F41.9 and Thoracic back pain, un specified back pain laterality, unspecified chronicity M54.6 [facility] [address] [address] Jun, Anxiety F41.9 and Thoracic back pain, un specified back pain laterality, unspecified chronicity M54.6 [facility] [address] [address] Jun, Thoracic back pain, unspecified back hao n laterality, unspecified chronicity M54.6 [facility] [address] [address] Jun, Anxiety F41.9 and Thoracic back pain, un specified back pain laterality, unspecified chronicity M54.6 [facility] [address] [address] May, [facility] [address] [address] May, [place] [address] [address] May, [place] [address] [address] May, Anxiety F41.9 and Encounter for medicati on monitoring Z51.81 [place] [address] [address] May, Anxiety F41.9 and Thoracic back pain, un specified back pain laterality, unspecified chronicity M54.6 [place] [address] [address] Apr, Hyperlipidemia 272.4 [place] [address] [address] Apr, Chronic pain G89.29 ; Anxiety F41.9 ; Ce rvical radiculopathy M54.12 and Vision loss H54.7 [place] [address] [address] Apr, [place] [address] [address] Apr, Anxiety F41.9 and Thoracic back pain, un specified back pain laterality, unspecified chronicity M54.6 [place] [address] [address] Mar, [place] [address] [address] Mar, Anxiety F41.9 and Thoracic back pain, un specified back pain laterality, unspecified chronicity M54.6 [place] [address] [address] 14 Feb, 2018 Anxiety F41.9 and Thoracic back pain, un specified back pain laterality, unspecified chronicity M54.6 [place] [address] [address] 07 Feb, 2018 Thoracic back pain, unspecified back hao n laterality, unspecified chronicity M54.6 [place] [address] [address] Jan, [facility] [address] [place] [address] Jan, Anxiety F41.9 and Thoracic back pain, un specified back pain laterality, unspecified chronicity M54.6 [place] [address] [address] Dec, Diarrhea of presumed infectious origin R 19.7 [place] [address] [address] 19 Dec, 2017 Diarrhea of presumed infectious origin R 19.7 [place] [address] [address] 18 Dec, 2017 Thoracic back pain, unspecified back hao n laterality, unspecified chronicity M54.6 [place] [address] [address] Dec, [place] [address] [address] Dec, Anxiety F41.9 and Thoracic back pain, un specified back pain laterality, unspecified chronicity M54.6 [place] [address] [address] Dec, Diarrhea of presumed infectious origin R 19.7 [place] [address] [address] Dec, [place] [address] [address] Dec, Anxiety F41.9 and Thoracic back pain, un specified back pain laterality, unspecified chronicity M54.6 [place] [address] [address] Dec, Anxiety F41.9 and Thoracic back pain, un specified back pain laterality, unspecified chronicity M54.6 [facility] [address] [place] [id number] Dec, Diarrhea of presumed infectious origin R 19.7 ; Anxiety F41.9 ; Thoracic back pain, unspecified back pain laterality, unspecified chronicity M54.6 and HTN (hypertension) I10 [place] [address] [address] Dec, Anxiety F41.9 [facility] [address] [place] [id number] Dec, Anxiety F41.9 ; Diarrhea of presumed inf ectious origin R19.7 ; Generalized abdominal pain R10.84 and Localized edema R60.0 [place] [address] [address] Nov, [facility] [address] [place] [id number] Nov, Anxiety F41.9 ; Urinary retention R33.9 ; Diarrhea of presumed infectious origin R19.7 ; Weakness R53.1 ; Acute kidney failure, unspecified N17.9 ; Chronic kidney disease, stage III (moderate) N18.3 and Thoracic back pain, unspecified back pain laterality, unspecified chronicity M54.6 [place] [address] [address] Oct, Thoracic back pain, unspecified back hao n laterality, unspecified chronicity M54.6 and Anxiety F41.9 [place] [address] [address] Sep, Thoracic back pain, unspecified back hao n laterality, unspecified chronicity M54.6 and Anxiety F41.9 [place] [address] [address] Sep, Thoracic back pain, unspecified back hao n laterality, unspecified chronicity M54.6 ; Anxiety F41.9 and Encounter for medication monitoring Z51.81 [place] [address] [address] August, [place] [address] [address] August, Thoracic back pain, unspecified back hao n laterality, unspecified chronicity M54.6 and Anxiety F41.9 [place] [address] [address] August, Hyperlipidemia E78.5 and HTN (hypertensi on) I10 [place] [address] [address] August, [place] [address] [address] August, Medicare welcome exam Z00.00 ; Chronic k idney failure N18.9 ; Anxiety F41.9 ; Chronic pain G89.29 ; Insomnia G47.00 ; Hyperlipidemia E78.5 ; HTN (hypertension) I10 and Thoracic back pain, unspecified back pain laterality, unspecified chronicity M54.6 [place] [address] [address] Jul, [place] [address] [address] Jul, [place] [address] [address] Jul, [place] [address] [address] Jul, Anxiety F41.9 [place] [address] [address] Jul, Thoracic back pain, unspecified back hao n laterality, unspecified chronicity M54.6 and Anxiety F41.9 [place] [address] [address] Jun, Thoracic back pain, unspecified back hao n laterality, unspecified chronicity M54.6 and Anxiety F41.9 [place] [address] [address] May, Thoracic back pain, unspecified back hoa n laterality, unspecified chronicity M54.6 and Anxiety F41.9 [place] [address] [address] Apr, Thoracic back pain, unspecified back hao n laterality, unspecified chronicity M54.6 and Anxiety F41.9 [place] [address] [address] Mar, [place] [address] [address] Mar, Thoracic back pain, unspecified back hao n laterality, unspecified chronicity M54.6 and Anxiety F41.9 [place] [address] [address] Mar, Thoracic back pain, unspecified back hao n laterality, unspecified chronicity M54.6 ; HTN (hypertension) I10 ; Hyperlipidemia E78.5 and Anxiety F41.9 [place] [address] [address] Feb, Thoracic back pain, unspecified back hao n laterality, unspecified chronicity M54.6 and Anxiety F41.9 [place] [address] [address] Nov, [place] [address] [address] Oct, [place] [address] [address] Oct, Thoracic back pain, unspecified back hao n laterality, unspecified chronicity M54.6 [place] [address] [address] Oct, HTN (hypertension) I10 ; Constipation K5 9.00 ; Hyperlipidemia E78.5 ; Thoracic back pain, unspecified back pain laterality, unspecified chronicity M54.6 ; Chronic pain G89.29 ; Anxiety F41.9 ; Chronic kidney failure N18.9 ; Environmental allergies Z91.09 ; Vitamin D deficiency E55.9 and Primary insomnia F51.01 [place] [address] [address] Sep, Anxiety F41.9 [facility] [id number] [place] [address] Sep, [facility] [id number] [place] [address] August, Anxiety F41.9 [facility] [address] [id number] [place] [address] August, [facility] [id number] [place] [address] Jul, Anxiety F41.9 [facility] [address] [id number] [place] [address] Jul, [facility] [id number] [place] [address] Jun, Anxiety F41.9 [facility] [id number] [place] [address] Jun, [facility] [id number] [place] [address] May, [facility] [id number] [place] [address] May, [facility] [id number] [place] [address] May, [facility] [id number] [place] [address] Apr, [facility] [id number] [place] [address] Apr, [facility] [id number] [place] [address] Apr, Anxiety F41.9 [facility] [id number] [place] [address] Apr, Anxiety F41.9 [facility] [id number] [place] [address] Apr, [facility] [address] [address] Mar, HTN (hypertension) I10 ; Tremor R25.1 ; Hypercholesterolemia E78.0 ; Constipation K59.00 ; Chronic pain G89.29 ; Hyperlipidemia E78.5 ; Insomnia G47.00 ; Anxiety F41.9 and Thoracic back pain, unspecified back pain laterality, unspecified chronicity M54.6 [facility] [address] [address] Mar, Tremor R25.1 ; HTN (hypertension) I10 ; Hypercholesterolemia E78.0 ; Constipation K59.00 ; Chronic pain G89.29 ; Hyperlipidemia E78.5 ; Insomnia G47.00 ; Anxiety F41.9 and Thoracic back pain, unspecified back pain laterality, unspecified chronicity M54.6 [facility] [address] [address] Mar, [facility] [address] [address] Mar, [facility] [address] [address] Feb, [facility] [address] [address] Jan, [facility] [address] [address] Jan, [facility] [address] [address] Dec, [facility] [address] [address] Nov, [facility] [address] [address] Nov, [facility] [address] [address] Oct, Anxiety F41.9 [facility] [address] [address] Oct, Chronic pain G89.29 [facility] [address] [address] Sep, [facility] [address] [address] Sep, [facility] [address] [address] Sep, [place] [address] [address] Sep, [facility] [address] [address] Sep, Chronic pain syndrome G89.4 [place] [address] [address] Sep, HTN (hypertension) I10 ; Chronic pain G8 9.29 ; Hypercholesterolemia E78.0 ; Chronic kidney failure N18.9 ; Constipation, unspecified constipation type K59.00 ; Anxiety F41.9 and Thoracic back pain, unspecified back pain laterality, unspecified chronicity M54.6 [place] [address] [address] August, Chronic pain syndrome G89.4 [place] [address] [address] August, Chronic pain syndrome G89.4 [place] [address] [address] Jul, Anxiety disorder, unspecified F41.9 and Chronic pain syndrome G89.4 [place] [address] [address] Jul, Insomnia, unspecified G47.00 and Chronic pain syndrome G89.4 [place] [address] [address] Jul, Allergic rhinitis J30.9 [place] [address] [address] Jul, Constipation, unspecified K59.00 [place] [address] [address] Jul, [facility] [id number] [place] [address] Jun, [facility] [id number] [place] [address] Jun, [facility] [id number] [place] [address] Jun, [facility] [address] [address] Jun, [facility] [id number] [place] [address] Jun, [facility] [address] [address] Jun, [facility] [address] [address] May, [facility] [address] [address] May, [facility] [id number] [place] [address] May, Anxiety F41.9 ; Insomnia G47.00 ; Hyperl ipidemia E78.5 ; Chronic pain G89.29 ; HTN (hypertension) I10 ; Environmental allergies V15.09 and Constipation 564.00 [facility] [id number] [place] [address] Apr, [facility] [id number] [place] [address] Apr, [facility] [address] [address] Apr, [facility] [address] [address] Mar, [facility] [address] [address] Mar, [facility] [address] [address] Mar, [place] [address] [address] Feb, [place] [address] [address] Feb, [place] [address] [address] Feb, [address] [address] Jan, HTN (hypertension) I10 ; Constipation K5 9.00 ; Chronic pain G89.29 ; Hyperlipidemia E78.5 ; Hypercholesterolemia E78.0 ; Insomnia G47.00 and Anxiety F41.9 [place] [address] [address] Jan, [place] [address] [address] Dec, [place] [address] [address] Nov, [address] [address] Oct, Chronic kidney disease, unspecified 585. 9 ; Chronic pain syndrome 338.4 ; Hyperlipidemia 272.4 and Essential hypertension 401.9 [place] [address] [address] Oct, Chronic kidney disease 585.9 [place] [address] [address] Oct, [address] [address] Oct, Chronic kidney disease, unspecified 585. 9 ; Hypercalcemia 275.42 ; Hyperlipidemia 272.4 ; Essential hypertension 401.9 ; Chronic pain syndrome 338.4 ; Insomnia 780.52 ; Constipation 564.00 ; Environmental allergies V15.09 and Anxiety 300.[address] [address] 15 Oct, 2014 Chronic kidney disease 585.9 [facility] [address] [id number] [place] [address] 15 Oct, 2014 [facility] [address] [id number] [place] [address] 14 Oct, 2014 Chronic kidney disease 585.9 and Hyperli pidemia 272.4 [facility] [id number] [place] [address] 10 Oct, 2014 [facility] [address] [id number] [place] [address] 10 Oct, 2014 [facility] [id number] [place] [address] 18 Sep, 2014 [facility] [id number] [place] [address] 15 Sep, 2014 [facility] [id number] [place] [address] 15 Sep, 2014 Chronic kidney disease 585.9 and Hyperli pidemia 272.4 [facility] [id number] [place] [address] Sep, [facility] [id number] [place] [address] August, [facility] [id number] [place] [address] August, [facility] [id number] [place] [address] 14 Jul, 2014 [facility] [address] [id number] [place] [address] 13 Jul, 2014 [facility] [id number] [place] [address] 20 Jun, 2014 [facility] [id number] [place] [address] 20 Jun, 2014 [facility] [id number] [place] [address] 16 Jun, 2014 [facility] [address] [id number] [place] [address] Jun, [facility] [address] [id number] [place] [address] Jun, [facility] [address] [id number] [place] [address] Jun, [facility] [address] [id number] [place] [place] [address] Jun, [facility] [place] [facility] [address] [id number] [place] [address] Jun, [facility] [place] [facility] [address] [id number] [place] [address] May, [facility] [place] [facility] [address] [id number] [place] [address] May, [facility] [place] [facility] [address] [id number] [place] [address] May, [facility] [place] [facility] [address] [id number] [place] [address] May, [facility] [place] [facility] [address] [id number] [place] [address] Apr, [facility] [place] [facility] [address] [id number] [place] [address] Apr, [facility] [place] [facility] [address] [id number] [place] [address] Apr, [facility] [place] [facility] [address] [id number] [place] [address] Apr, [facility] [place] [facility] [address] [id number] [place] [address] Apr, [facility] [place] [facility] [address] [id number] [place] [address] Apr, [facility] [place] [facility] [address] [id number] [place] [address] Apr, [facility] [place] [facility] [address] [id number] [place] [address] Apr, [facility] [place] [facility] [address] [id number] [place] [address] Apr, [facility] [place] [facility] [address] [id number] [place] [address] Apr, [facility] [place] [facility] [address] [id number] [place] [address] Apr, [facility] [place] [facility] [address] [id number] [place] [address] Mar, [facility] [place] [facility] [address] [id number] [place] [address] Mar, [facility] [place] [facility] [address] [id number] [place] [address] Feb, [facility] [place] [facility] [address] [id number] [place] [address] Feb, [facility] [place] [facility] [address] [id number] [place] [address] Feb, [facility] [place] [facility] [address] [id number] [place] [address] Feb, [facility] [place] [facility] [address] [id number] [place] [address] Feb, [facility] [place] [facility] [address] [id number] [place] [address] Feb, [facility] [place] [facility] [address] [id number] [place] [address] Feb, [facility] [place] [facility] [address] [id number] [place] [address] Feb, [facility] [place] [facility] [address] [id number] [place] [address] Feb, [facility] [place] [facility] [address] [id number] [place] [address] Feb, [facility] [place] [facility] [address] [id number] [place] [address] Jan, [facility] [place] [facility] [address] [id number] [place] [address] Jan, 2013 [facility] [place] [facility] [address] [facility] [id number] [place] [address] Jan, [facility] [place] [facility] [address] [id number] [place] [address] Jan, [facility] [place] [facility] [address] [id number] [place] [address] Jan, [facility] [place] [facility] [address] [id number] [place] [address] 24 Jan, 2014 [facility] [place] [facility] [address] [id number] [place] [address] Jan, [facility] [place] [facility] [address] [id number] [place] [address] Jan, 2013 [facility] [place] [facility] [address] [id number] [place] [address] 16 Jan, 2014 [facility] [place] [facility] [address] [id number] [place] [address] Jan, 2013 [facility] [place] [facility] [address] [id number] [place] [address] Jan, [facility] [place] [facility] [address] [id number] [place] [address] 26 Dec, 2013 [facility] [place] [facility] [address] [id number] [place] [address] 26 Dec, 2013 [facility] [place] [facility] [address] [id number] [place] [address] 19 Dec, 2013 [facility] [place] [facility] [address] [id number] [place] [address] 19 Sep, 2013 [facility] [place] [facility] [address] [id number] [place] [address] 18 Dec, 2013 [facility] [place] [facility] [address] [id number] [place] [address] 18 Sep, 2013 [facility] [place] [facility] [address] [id number] [place] [address] 03 Sep, 2013 [facility] [place] [facility] [address] [facility] [id number] [place] [address] Dec, 2013 [facility] [place] [facility] [address] [id number] [place] [address] Nov, [facility] [place] [facility] [address] [id number] [place] [address] Nov, [facility] [place] [facility] [address] [id number] [place] [address] Nov, [facility] [place] [facility] [address] [facility] [id number] [place] [address] Nov, [facility] [place] [facility] [address] [id number] [place] [address] Nov, [facility] [place] [facility] [address] [id number] [place] [address] Nov, 2013 [facility] [place] [facility] [address] [id number] [place] [address] Nov, [facility] [place] [facility] [address] [id number] [place] [address] Nov, [facility] [place] [facility] [address] [id number] [place] [address] Oct, [facility] [place] [facility] [address] [id number] [place] [address] Oct, 2013 [facility] [place] [facility] [address] [id number] [place] [address] Oct, [facility] [place] [facility] [address] [id number] [place] [address] Oct, [facility] [place] [facility] [address] [id number] [place] [address] Sep, [facility] [place] [facility] [address] [id number] [place] [address] Sep, [facility] [place] [facility] [address] [id number] [place] [address] Sep, [facility] [place] [facility] [address] [id number] [place] [address] Sep, [facility] [place] [facility] [address] [facility] [id number] [place] [address] Sep, [facility] [place] [facility] [address] [id number] [place] [address] Sep, [facility] [place] [facility] [address] [id number] [place] [address] Sep, [facility] [place] [facility] [address] [id number] [place] [address] Sep, [facility] [place] [facility] [address] [id number] [place] [address] August, [facility] [place] [facility] [address] [id number] [place] [address] August, [facility] [place] [facility] [address] [id number] [place] [address] August, [facility] [place] [facility] [address] [id number] [place] [address] August, [facility] [place] [facility] [address] [id number] [place] [address] August, [facility] [place] [facility] [address] [id number] [place] [address] August, [facility] [place] [facility] [address] [id number] [place] [address] August, [facility] [place] [facility] [address] [id number] [place] [address] August, [facility] [place] [facility] [address] [id number] [place] [address] August, [facility] [place] [facility] [address] [id number] [place] [address] August, [facility] [place] [facility] [address] [id number] [place] [address] Jul, [facility] [place] [facility] [address] [id number] [place] [address] Jul, [facility] [place] [facility] [address] [id number] [facility] [place] [address] Jul, [facility] [place] [facility] [address] [facility] [id number] [facility] [place] [address] Jul, [facility] [place] [facility] [address] [facility] [id number] [facility] [place] [address] Jul, [facility] [place] [facility] [address] [id number] [facility] [place] [address] Jul, [facility] [place] [facility] [address] [facility] [id number] [facility] [place] [address] Jul, [facility] [place] [facility] [address] [facility] [id number] [facility] [place] [address] Jul, [facility] [place] [facility] [address] [id number] [place] [address] Jun, [facility] [place] [facility] [address] [id number] [place] [address] Jun, [facility] [place] [facility] [address] [id number] [place] [address] Jun, [facility] [place] [facility] [address] [facility] [id number] [place] [address] Jun, [facility] [place] [facility] [address] [id number] [place] [address] Jun, [facility] [place] [facility] [address] [id number] [place] [address] Jun, [facility] [place] [facility] [address] [id number] [place] [address] May, [facility] [place] [facility] [address] [facility] [id number] [place] [address] May, [facility] [place] [facility] [address] [id number] [place] [address] May, [facility] [place] [facility] [address] [id number] [place] [address] May, [facility] [place] [facility] [address] [id number] [place] [address] May, [facility] [place] [facility] [address] [facility] [id number] [place] [address] May, [facility] [place] [facility] [address] [facility] [id number] [place] [address] May, [facility] [place] [facility] [address] [id number] [place] [address] Apr, [facility] [place] [facility] [address] [id number] [place] [address] Apr, [facility] [place] [facility] [address] [facility] [id number] [place] [address] Apr, [facility] [place] [facility] [address] [id number] [place] [address] Apr, [facility] [place] [facility] [address] [id number] [place] [address] Apr, [facility] [place] [facility] [address] [id number] [place] [address] Apr, [facility] [place] [facility] [address] [id number] [place] [address] Mar, [facility] [place] [facility] [address] [id number] [place] [address] 31 Mar, 2013 [facility] [place] [facility] [address] [id number] [place] [address] Mar, [facility] [place] [facility] [address] [id number] [place] [address] Mar, [facility] [place] [facility] [address] [id number] [place] [address] Mar, [facility] [place] [facility] [address] [id number] [place] [address] 19 Mar, 2013 [facility] [place] [facility] [address] [id number] [place] [address] 16 Mar, 2013 [facility] [place] [facility] [address] [id number] [place] [address] 16 Mar, 2013 [facility] [place] [facility] [address] [id number] [place] [address] Mar, [facility] [place] [facility] [address] [id number] [place] [address] Mar, [facility] [place] [facility] [address] [id number] [place] [address] Feb, [facility] [place] [facility] [address] [id number] [place] [address] Feb, [facility] [place] [facility] [address] [id number] [place] [address] Feb, [facility] [place] [facility] [address] [id number] [place] [address] Feb, [facility] [place] [facility] [address] [id number] [place] [address] Feb, [facility] [place] [facility] [address] [id number] [place] [address] Feb, [facility] [place] [facility] [address] [id number] [place] [address] Feb, [facility] [place] [facility] [address] [id number] [place] [address] Feb, [facility] [place] [facility] [address] [id number] [place] [address] Feb, [facility] [place] [facility] [address] [id number] [place] [address] Feb, [facility] [place] [facility] [address] [id number] [place] [address] Jan, [facility] [place] [facility] [address] [id number] [place] [address] Jan, [facility] [place] [facility] [id number] [place] [address] Jan, [facility] [place] [facility] [address] [id number] [place] [address] Jan, [facility] [place] [facility] [address] [id number] [place] [address] Jan, [facility] [place] [facility] [address] [id number] [place] [address] Jan, [facility] [place] [facility] [address] [facility] [id number] [place] [address] Jan, [facility] [place] [facility] [address] [facility] [id number] [place] [address] Jan, [facility] [place] [facility] [address] [id number] [place] [address] Jan, [facility] [place] [facility] [address] [facility] [id number] [place] [address] Dec, [facility] [place] [facility] [address] [id number] [place] [address] Dec, [facility] [place] [facility] [address] [id number] [place] [address] Dec, [facility] [place] [facility] [address] [id number] [place] [address] Dec, [facility] [place] [facility] [address] [id number] [place] [address] Nov, [facility] [place] [facility] [address] [id number] [place] [address] Nov, [facility] [place] [facility] [address] [id number] [place] [address] Nov, [facility] [place] [facility] [address] [id number] [place] [address] Nov, [facility] [place] [facility] [address] [id number] [place] [address] Nov, [facility] [place] [facility] [address] [facility] [id number] [place] [address] Nov, [facility] [place] [facility] [address] [id number] [place] [address] Oct, [facility] [place] [facility] [address] [id number] [place] [address] Oct, [facility] [place] [facility] [address] [id number] [place] [address] Oct, 2012 [facility] [place] [facility] [address] [facility] [id number] [place] [address] 08 Oct, 2012 [facility] [place] [facility] [address] [facility] [id number] [facility] [place] [address] 27 Sep, 2012 [facility] [place] [facility] [address] [id number] [place] [address] Sep, [facility] [place] [facility] [address] [id number] [place] [address] Sep, [facility] [place] [facility] [address] [facility] [id number] [facility] [place] [address] 14 Sep, 2012 [facility] [place] [facility] [address] [id number] [place] [address] Sep, [facility] [place] [facility] [address] [id number] [place] [address] August, [facility] [place] [facility] [address] [id number] [place] [address] August, [facility] [place] [facility] [address] [id number] [place] [address] Jul, [facility] [place] [facility] [address] [id number] [place] [address] Jul, [facility] [place] [facility] [address] [id number] [place] [address] 15 Jul, 2012 [facility] [place] [facility] [address] [id number] [place] [address] 09 Jul, 2012 [facility] [place] [facility] [address] [id number] [place] [address] 08 Jul, 2012 [facility] [place] [facility] [address] [id number] [place] [address] 26 Jun, 2012 [facility] [place] [facility] [address] [id number] [place] [address] 20 Jun, 2012 [facility] [place] [facility] [address] [id number] [place] [address] 15 Jun, 2012 [facility] [place] [facility] [address] [id number] [place] [address] Jun, [facility] [place] [facility] [address] [id number] [place] [address] Jun, [facility] [place] [facility] [address] [id number] [place] [address] May, [facility] [place] [facility] [address] [id number] [place] [address] May, [facility] [place] [facility] [address] [id number] [place] [address] May, [facility] [place] [facility] [address] [id number] [place] [address] May, [facility] [place] [facility] [address] [id number] [place] [address] May, [facility] [place] [facility] [address] [id number] [place] [address] May, [facility] [place] [facility] [address] [id number] [place] [address] May, [facility] [address] [id number] [place] [address] May, [facility] [address] [id number] [place] [address] May, [facility] [address] [id number] [place] [address] Apr, [facility] [address] [id number] [place] [address] Apr, [facility] [address] [id number] [place] [address] Apr, [facility] [id number] [place] [address] Apr, [facility] [address] [id number] [place] [address] Apr, [facility] [address] [id number] [place] [address] Mar, [facility] [address] [id number] [place] [address] Mar, [facility] [address] [id number] [place] [address] Mar, [facility] [address] [id number] [place] [address] Mar, [facility] [address] [id number] [place] [address] Mar, [facility] [address] [id number] [place] [address] Mar, [facility] [address] [id number] [place] [address] Mar, [facility] [address] [id number] [place] [address] Mar, [facility] [address] [id number] [place] [address] Mar, [facility] [address] [id number] [place] [address] Mar, [facility] [address] [id number] [place] [address] Feb, [facility] [address] [id number] [place] [address] Feb, [facility] [address] [id number] [place] [address] Feb, [facility] [address] [id number] [place] [address] Feb, [facility] [address] [id number] [place] [address] Feb, [facility] [address] [id number] [place] [address] Feb, [facility] [address] [id number] [place] [address] Feb, [facility] [address] [id number] [place] [address] 20 Feb, 2012 [facility] [address] [id number] [place] [address] 16 Feb, 2012 [facility] [address] [id number] [place] [address] 16 Feb, 2012 [facility] [address] [id number] [place] [address] Feb, [facility] [address] [id number] [place] [address] Feb, [facility] [address] [id number] [place] [address] Feb, [facility] [address] [id number] [place] [address] Feb, [facility] [address] [id number] [place] [address] Feb, [facility] [address] [id number] [place] [address] Feb, [facility] [address] [id number] [place] [address] Feb, [facility] [address] [id number] [place] [address] Feb, [facility] [address] [id number] [place] [address] Jan, [facility] [address] [id number] [place] [address] Jan, [facility] [facility] [address] [id number] [place] [address] Jan, [facility] [id number] [place] [address] 31 Jan, 2012 [facility] [address] [id number] [place] [address] Jan, [facility] [address] [id number] [place] [address] 24 Jan, 2012 [facility] [address] [id number] [place] [address] Jan, [facility] [address] [id number] [place] [address] Jan, [facility] [address] [id number] [place] [address] Jan, [facility] [address] [id number] [place] [address] Jan, [facility] [address] [id number] [place] [address] Dec, [facility] [address] [id number] [place] [address] Dec, [facility] [address] [id number] [place] [address] Dec, [facility] [address] [id number] [place] [address] Dec, [facility] [address] [id number] [place] [address] Nov, [facility] [address] [id number] [place] [address] Nov, [facility] [address] [id number] [place] [address] Nov, [facility] [address] [id number] [place] [address] Nov, [facility] [address] [id number] [place] [address] Nov, [facility] [address] [id number] [place] [address] Nov, [facility] [address] [id number] [place] [address] Oct, [facility] [address] [id number] [place] [address] Oct, [facility] [address] [id number] [place] [address] Oct, [facility] [address] [facility] [id number] [place] [address] Oct, [facility] [address] [id number] [place] [address] Oct, [facility] [address] [id number] [place] [address] Sep, [facility] [address] [id number] [place] [address] Sep, [facility] [address] [id number] [place] [address] Sep, [facility] [address] [id number] [place] [address] Sep, [facility] [address] [id number] [place] [address] Sep, [facility] [address] [id number] [place] [address] August, [facility] [address] [id number] [place] [address] August, [facility] [address] [id number] [place] [address] August, [facility] [address] [id number] [place] [address] August, [facility] [address] [id number] [place] [address] Jul, [facility] [address] [id number] [place] [address] Jul, [facility] [address] [id number] [place] [address] Jul, [facility] [address] [id number] [place] [address] Jul, [facility] [address] [id number] [place] [address] Jul, [facility] [address] [id number] [place] [address] 12 Jul, 2011 [facility] [address] [id number] [place] [address] Jul, [facility] [address] [id number] [place] [address] Jul, [facility] [address] [id number] [place] [address] Jul, [facility] [address] [id number] [place] [address] Jul, [facility] [address] [id number] [place] [address] Jul, [facility] [address] [id number] [place] [address] Jul, [facility] [address] [id number] [place] [address] Jul, [facility] [address] [id number] [place] [address] Jul, [facility] [address] [id number] [place] [address] Jun, [facility] [address] [id number] [place] [address] Jun, [facility] [address] [id number] [place] [address] Jun, [facility] [address] [id number] [place] [address] Jun, [facility] [address] [id number] [place] [address] May, [facility] [address] [id number] [place] [address] May, [facility] [address] [id number] [place] [address] May, [facility] [address] [id number] [place] [address] Apr, [facility] [address] [id number] [place] [address] 18 Apr, 2011 [facility] [address] [id number] [place] [address] 13 Apr, 2011 [facility] [address] [id number] [place] [address] Apr, [facility] [address] [id number] [place] [address] Apr, [facility] [address] [id number] [place] [address] Mar, [facility] [address] [id number] [place] [address] Mar, [facility] [address] [id number] [place] [address] Mar, [facility] [address] [id number] [place] [address] Mar, [facility] [address] [id number] [place] [address] Mar, [facility] [address] [id number] [place] [address] Mar, [facility] [address] [id number] [place] [address] Mar, [facility] [address] [id number] [place] [address] Feb, [facility] [address] [id number] [place] [address] Feb, [facility] [address] [id number] [place] [address] Feb, [facility] [address] [id number] [place] [address] Feb, [facility] [address] [id number] [place] [address] 16 Feb, 2011 [facility] [address] [id number] [place] [address] 14 Feb, 2011 [facility] [address] [id number] [place] [address] 10 Feb, 2011 [facility] [address] [id number] [place] [address] 31 Jan, 2011 [facility] [address] [id number] [place] [address] 31 Jan, 2011 [facility] [address] [id number] [place] [address] 31 Jan, 2011 [facility] [address] [facility] [id number] [place] [address] 18 Jan, 2011 [facility] [address] [id number] [place] [address] 17 Jan, 2011 [facility] [address] [id number] [place] [address] 17 Jan, 2011 [facility] [address] [id number] [place] [address] Jun, [facility] [address] [id number] [place] [address] 30 Mar, 2010 [facility] [address] [id number] [place] [address] 20 Mar, 2010 [facility] [address] [id number] [place] [address] 14 Mar, 2010 [facility] [address] [id number] [place] [address] 14 Mar, 2010 [facility] [address] [id number] [place] [address] 13 Mar, 2010 [facility] [address] [id number] [place] [address] 07 Mar, 2010 [facility] [address] [id number] [place] [address] 02 Mar, 2010 [facility] [address] [id number] [place] [address] Mar, [facility] [address] [id number] [place] [address] 30 Feb, 2010 [facility] [address] [id number] [place] [address] 29 Feb, 2010 [facility] [address] [id number] [place] [address] 17 Feb, 2010 [facility] [address] [id number] [place] [address] 17 Feb, 2010 [facility] [address] [id number] [place] [address] 16 Feb, 2010 [facility] [address] [id number] [place] [address] 08 Feb, 2010 [facility] [address] [id number] [place] [address] 04 Feb, 2010 [facility] [address] [id number] [place] [address] Feb, [facility] [address] [id number] [place] [address] 28 Jan, 2010 [facility] [address] [id number] [place] [address] Jan, [facility] [address] [id number] [place] [address] Jan, [facility] [address] [id number] [place] [address] Jan, [facility] [address] [id number] [place] [address] 29 Mar, 2009 [facility] [address] [id number] [place] [address] 22 Mar, 2009 [facility] [id number] [place] [address] 19 Mar, 2009 [facility] [address] [id number] [place] [address] 19 Mar, 2009 [facility] [address] [id number] [place] [address] 14 Mar, 2009 [facility] [address] [id number] [place] [address] Mar, [facility] [address] [id number] [place] [address] Feb, [facility] [address] [id number] [place] [address] Feb, [facility] [address] [id number] [place] [address] Jan, [facility] [address] [id number] [place] [address] Sep, [facility] [address] [id number] [place] [address] May, IMMUNIZATIONS No Known Immunizations SOCIAL HISTORY [...] surgery Hospitalization History [facility] in [place]- Spontane ous Pneumothorax Hospitalization History [facility]- Colon resection Hospitalization History [facility] - diarrhea/ couldnt urin ate nov 2017 Hospitalization History pain /hip to foot right side 10/16/19 19
--- OUTSIDE RECORDS SUMMARY | 2019-08-28 09:03 | XMS REPORT ---
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 Name Role Phone Migration, Doctor Unavailable Unavailable PROBLEMS Type Condition ICD9-CM Code OII32-JH Code Onset Dates Condition S tatus SNOMED Code Problem HTN (hypertension) I10 Active 3 2298952 Problem Insomnia G47.00 Active 179749084 Problem Constipation K59.00 Active 4236655 8 Problem Anxiety F41.9 Active 33164797 Problem Hyperlipidemia E78.5 Active 91380 004 Problem Chronic pain G89.29 Active 6101570 1 Problem Environmental allergies Z91.09 Active 228414538 Problem Primary insomnia F51.01 Active 397 2004 Problem Chronic kidney disease, stage III (moderate) N18.3 Active 055360605 Problem Psychophysiological insomnia F51.04 A ctive 571020794 Problem Vitamin D deficiency E55.9 Active 82250076 Problem Age-related cataract of both eyes, unspecified age-related cataract type H25.9 Active 53725548 Problem Thoracic back pain, unspecif ied back pain laterality, unspecified chronicity M54.6 Active 808742414 Problem Vision loss H54.7 Active 03083572 1 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 57487897 Problem Schizophrenia, unspecified type F20.9 Active 04615612 Problem Psychophysiological insomnia F51.04 A ctive [id number] ALLERGIES No Information ENCOUNTERS Encounter Location Date Diagnosis [facility] [address] [id number] [place] [address] Apr, [facility] [address] [id number] [place] [address] Mar, Encounter for Medicare annual wellness e [...] both eyes, unspecified age-related cataract type H25.9 [place] [address] [address] Mar, Thoracic back pain, unspecified back hao n laterality, unspecified chronicity M54.6 [place] [address] [address] Mar, Psychophysiological insomnia F51.04 [place] [address] [address] Mar, Thoracic back pain, unspecified back hao n laterality, unspecified chronicity M54.6 and Anxiety F41.9 [place] [address] [address] Mar, Psychophysiological insomnia F51.04 [place] [address] [address] Mar, [place] [address] [address] Mar, Psychophysiological insomnia F51.04 [place] [address] [address] Mar, [place] [address] [address] Feb, [place] [address] [address] Feb, Thoracic back pain, unspecified back hao n laterality, unspecified chronicity M54.6 [place] [address] [address] 14 Feb, 2019 Anxiety F41.9 and Thoracic back pain, un specified back pain laterality, unspecified chronicity M54.6 [place] [address] [address] 07 Feb, 2019 Insomnia G47.00 ; HTN (hypertension) I10 and Constipation K59.00 [facility] [address] [address] Feb, [facility] [address] [address] Jan, Thoracic back pain, unspecified back hao n laterality, unspecified chronicity M54.6 [place] [address] [address] Jan, Anxiety F41.9 [place] [address] [address] Jan, Anxiety F41.9 [place] [address] [address] Jan, Anxiety F41.9 and Thoracic back pain, un specified back pain laterality, unspecified chronicity M54.6 [place] [address] [address] Jan, [place] [address] [address] Jan, [place] [address] [address] Dec, Thoracic back pain, unspecified back hao n laterality, unspecified chronicity M54.6 [place] [address] [address] Dec, Thoracic back pain, unspecified back hao n laterality, unspecified chronicity M54.6 [place] [address] [address] Nov, Thoracic back pain, unspecified back hao n laterality, unspecified chronicity M54.6 [place] [address] [address] Nov, Anxiety F41.9 and Thoracic back pain, un specified back pain laterality, unspecified chronicity M54.6 [place] [address] [address] Nov, [facility] [address] [address] Nov, [facility] [address] [address] Nov, [facility] [address] [address] Oct, Thoracic back pain, unspecified back hao n laterality, unspecified chronicity M54.6 [facility] [address] [address] Oct, Anxiety F41.9 and Thoracic back pain, un specified back pain laterality, unspecified chronicity M54.6 [facility] [address] [address] Oct, Schizophrenia, unspecified type F20.9 an d Acute kidney injury N17.9 [facility] [address] [address] Oct, [facility] [address] [address] Oct, [facility] [address] [address] Oct, Thoracic back pain, unspecified back hao n laterality, unspecified chronicity M54.6 [facility] [address] [address] Oct, [facility] [address] [address] Oct, [facility] [address] [address] Sep, Anxiety F41.9 [facility] [address] [address] Sep, [facility] [address] [address] Sep, Thoracic back pain, unspecified back hao n laterality, unspecified chronicity M54.6 [facility] [address] [address] Sep, [facility] [address] [address] Sep, [facility] [address] [address] Sep, [facility] [address] [address] Sep, [facility] [address] [address] Sep, [facility] [address] [address] Sep, [facility] [address] [address] Sep, Chronic pain G89.29 ; Chronic kidney dis ease, stage III (moderate) N18.3 ; Hyperlipidemia E78.5 and Insomnia G47.00 [facility] [address] [address] Sep, Thoracic back pain, unspecified back hao n laterality, unspecified chronicity M54.6 [place] [address] [address] August, Anxiety F41.9 [facility] [address] [address] August, Thoracic back pain, unspecified back hao n laterality, unspecified chronicity M54.6 and Anxiety F41.9 [facility] [address] [address] August, 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 [facility] [address] [address] August, 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 [facility] [address] [address] August, [facility] [address] [address] August, [facility] [address] [address] August, Thoracic back pain, unspecified back hao n laterality, unspecified chronicity M54.6 [facility] [address] [place] [id number] [place] [address] August, [facility] [address] [address] August, Anxiety F41.9 and Thoracic back pain, un specified back pain laterality, unspecified chronicity M54.6 [facility] [address] [address] Jul, [facility] [address] [address] Jul, Thoracic back pain, unspecified back hao n laterality, unspecified chronicity M54.6 [facility] [address] [address] Jun, Anxiety F41.9 and Thoracic back pain, un specified back pain laterality, unspecified chronicity M54.6 [facility] [address] [address] Jun, Anxiety F41.9 and Thoracic back pain, un specified back pain laterality, unspecified chronicity M54.6 [facility] [address] [place] [id number] [place] [address] Jun, Thoracic back pain, unspecified back hao n laterality, unspecified chronicity M54.6 [facility] [address] [address] Jun, Anxiety F41.9 and Thoracic back pain, un specified back pain laterality, unspecified chronicity M54.6 [facility] [address] [address] May, [facility] [address] [address] May, [place] [address] [address] 08 May, 2018 [place] [address] [address] 06 May, 2018 Anxiety F41.9 and Encounter for medicati on monitoring Z51.81 [place] [address] [address] 05 May, 2018 Anxiety F41.9 and Thoracic back pain, un specified back pain laterality, unspecified chronicity M54.6 [place] [address] [address] Apr, Hyperlipidemia 272.4 [place] [address] [address] Apr, Chronic pain G89.29 ; Anxiety F41.9 ; Ce rvical radiculopathy M54.12 and Vision loss H54.7 [place] [address] [address] Apr, [place] [address] [address] Apr, Anxiety F41.9 and Thoracic back pain, un specified back pain laterality, unspecified chronicity M54.6 [place] [address] [address] 17 Mar, 2018 [place] [address] [address] Mar, Anxiety F41.9 and Thoracic back pain, un specified back pain laterality, unspecified chronicity M54.6 [place] [address] [address] 14 Feb, 2018 Anxiety F41.9 and Thoracic back pain, un specified back pain laterality, unspecified chronicity M54.6 [place] [address] [address] 07 Feb, 2018 Thoracic back pain, unspecified back hao n laterality, unspecified chronicity M54.6 [place] [address] [address] Jan, [place] [address] [address] Jan, Anxiety F41.9 and Thoracic back pain, un specified back pain laterality, unspecified chronicity M54.6 [place] [address] [address] Dec, Diarrhea of presumed infectious origin R 19.7 [place] [address] [address] 19 Dec, 2017 Diarrhea of presumed infectious origin R 19.7 [place] [address] [address] 18 Dec, 2017 Thoracic back pain, unspecified back hao n laterality, unspecified chronicity M54.6 [place] [address] [address] Dec, [place] [address] [address] 17 Dec, 2017 Anxiety F41.9 and Thoracic back pain, un specified back pain laterality, unspecified chronicity M54.6 [place] [address] [address] Dec, Diarrhea of presumed infectious origin R 19.7 [place] [address] [address] Dec, [place] [address] [address] Dec, Anxiety F41.9 and Thoracic back pain, un specified back pain laterality, unspecified chronicity M54.6 [place] [address] [address] Dec, Anxiety F41.9 and Thoracic back pain, un specified back pain laterality, unspecified chronicity M54.6 [facility] [address] [place] [id number] Dec, Diarrhea of presumed infectious origin R 19.7 ; Anxiety F41.9 ; Thoracic back pain, unspecified back pain laterality, unspecified chronicity M54.6 and HTN (hypertension) I10 [place] [address] [address] Dec, Anxiety F41.9 [facility] [address] [place] [id number] Dec, Anxiety F41.9 ; Diarrhea of presumed inf ectious origin R19.7 ; Generalized abdominal pain R10.84 and Localized edema R60.0 [place] [address] [address] Nov, [facility] [employer] [address] [place] [id number] Nov, Anxiety F41.9 ; Urinary retention R33.9 ; Diarrhea of presumed infectious origin R19.7 ; Weakness R53.1 ; Acute kidney failure, unspecified N17.9 ; Chronic kidney disease, stage III (moderate) N18.3 and Thoracic back pain, unspecified back pain laterality, unspecified chronicity M54.6 [place] [address] [address] Oct, Thoracic back pain, unspecified back hao n laterality, unspecified chronicity M54.6 and Anxiety F41.9 [place] [address] [address] Sep, Thoracic back pain, unspecified back hao n laterality, unspecified chronicity M54.6 and Anxiety F41.9 [place] [address] [address] Sep, Thoracic back pain, unspecified back hao n laterality, unspecified chronicity M54.6 ; Anxiety F41.9 and Encounter for medication monitoring Z51.81 [place] [address] [address] August, [place] [address] [address] August, Thoracic back pain, unspecified back hao n laterality, unspecified chronicity M54.6 and Anxiety F41.9 [place] [address] [address] August, Hyperlipidemia E78.5 and HTN (hypertensi on) I10 [place] [address] [address] August, [place] [address] [address] August, Medicare welcome exam Z00.00 ; Chronic k idney failure N18.9 ; Anxiety F41.9 ; Chronic pain G89.29 ; Insomnia G47.00 ; Hyperlipidemia E78.5 ; HTN (hypertension) I10 and Thoracic back pain, unspecified back pain laterality, unspecified chronicity M54.6 [place] [address] [address] Jul, [place] [address] [address] Jul, [place] [address] [address] Jul, [place] [address] [address] Jul, Anxiety F41.9 [place] [address] [address] Jul, Thoracic back pain, unspecified back hao n laterality, unspecified chronicity M54.6 and Anxiety F41.9 [place] [address] [address] Jun, Thoracic back pain, unspecified back hao n laterality, unspecified chronicity M54.6 and Anxiety F41.9 [place] [address] [address] May, Thoracic back pain, unspecified back hao n laterality, unspecified chronicity M54.6 and Anxiety F41.9 [place] [address] [address] Apr, Thoracic back pain, unspecified back hao n laterality, unspecified chronicity M54.6 and Anxiety F41.9 [place] [address] [address] Mar, [place] [address] [address] Mar, Thoracic back pain, unspecified back hao n laterality, unspecified chronicity M54.6 and Anxiety F41.9 [place] [address] [address] Mar, Thoracic back pain, unspecified back hao n laterality, unspecified chronicity M54.6 ; HTN (hypertension) I10 ; Hyperlipidemia E78.5 and Anxiety F41.9 [place] [address] [address] Feb, Thoracic back pain, unspecified back hao n laterality, unspecified chronicity M54.6 and Anxiety F41.9 [place] [address] [address] Nov, [place] [address] [address] Oct, [place] [address] [address] Oct, Thoracic back pain, unspecified back hao n laterality, unspecified chronicity M54.6 [place] [address] [address] Oct, HTN (hypertension) I10 ; Constipation K5 9.00 ; Hyperlipidemia E78.5 ; Thoracic back pain, unspecified back pain laterality, unspecified chronicity M54.6 ; Chronic pain G89.29 ; Anxiety F41.9 ; Chronic kidney failure N18.9 ; Environmental allergies Z91.09 ; Vitamin D deficiency E55.9 and Primary insomnia F51.01 [place] [address] [address] Sep, Anxiety F41.9 [facility] [address] [id number] [place] [address] Sep, [facility] [address] [place] [id number] [place] [address] August, Anxiety F41.9 [facility] [address] [id number] [place] [address] August, [facility] [address] [place] [id number] [place] [address] Jul, Anxiety F41.9 [facility] [address] [place] [id number] [place] [address] Jul, [facility] [address] [place] [id number] [place] [address] Jun, Anxiety F41.9 [facility] [address] [place] [id number] [place] [address] Jun, [facility] [address] [place] [id number] [place] [address] May, [facility] [address] [place] [id number] [place] [address] May, [facility] [address] [place] [id number] [place] [address] May, [facility] [address] [place] [id number] [place] [address] Apr, [facility] [address] [place] [id number] [place] [address] Apr, [facility] [address] [place] [id number] [place] [address] Apr, Anxiety F41.9 [facility] [address] [place] [id number] [place] [address] Apr, Anxiety F41.9 [facility] [address] [place] [id number] [place] [address] Apr, [facility] [address] [place] [id number] [place] [address] Mar, HTN (hypertension) I10 ; Tremor R25.1 ; Hypercholesterolemia E78.0 ; Constipation K59.00 ; Chronic pain G89.29 ; Hyperlipidemia E78.5 ; Insomnia G47.00 ; Anxiety F41.9 and Thoracic back pain, unspecified back pain laterality, unspecified chronicity M54.6 [facility] [address] [address] Mar, Tremor R25.1 ; HTN (hypertension) I10 ; Hypercholesterolemia E78.0 ; Constipation K59.00 ; Chronic pain G89.29 ; Hyperlipidemia E78.5 ; Insomnia G47.00 ; Anxiety F41.9 and Thoracic back pain, unspecified back pain laterality, unspecified chronicity M54.6 [facility] [address] [address] Mar, [facility] [address] [address] Mar, [facility] [address] [address] Feb, [facility] [address] [address] Jan, [facility] [address] [address] Jan, [facility] [address] [address] Dec, [facility] [address] [address] Nov, [facility] [address] [address] Nov, [facility] [address] [address] Oct, Anxiety F41.9 [facility] [address] [address] Oct, Chronic pain G89.29 [facility] [address] [address] Sep, [facility] [address] [address] Sep, [facility] [address] [address] Sep, [facility] [address] [address] Sep, [facility] [address] [address] Sep, Chronic pain syndrome G89.4 [place] [address] [address] Sep, HTN (hypertension) I10 ; Chronic pain G8 9.29 ; Hypercholesterolemia E78.0 ; Chronic kidney failure N18.9 ; Constipation, unspecified constipation type K59.00 ; Anxiety F41.9 and Thoracic back pain, unspecified back pain laterality, unspecified chronicity M54.6 [place] [address] [address] August, Chronic pain syndrome G89.4 [place] [address] [address] August, Chronic pain syndrome G89.4 [place] [address] [address] Jul, Anxiety disorder, unspecified F41.9 and Chronic pain syndrome G89.4 [place] [address] [address] Jul, Insomnia, unspecified G47.00 and Chronic pain syndrome G89.4 [place] [address] [address] Jul, Allergic rhinitis J30.9 [facility] [address] [address] Jul, Constipation, unspecified K59.00 [place] [address] [address] Jul, [facility] [address] [id number] [place] [address] Jun, [facility] [address] [id number] [place] [address] Jun, [facility] [address] [place] [id number] [place] [address] Jun, [facility] [address] [address] Jun, [facility] [address] [id number] [place] [address] Jun, [facility] [address] [address] Jun, [facility] [address] [id number] [place] [address] May, [facility] [address] [id number] [place] [address] May, [facility] [address] [address] [id number] [place] [address] May, Anxiety F41.9 ; Insomnia G47.00 ; Hyperl ipidemia E78.5 ; Chronic pain G89.29 ; HTN (hypertension) I10 ; Environmental allergies V15.09 and Constipation 564.00 [facility] [address] [id number] [place] [address] Apr, [facility] [id number] [place] [address] Apr, [facility] [address] [id number] [place] [address] Apr, [facility] [id number] [place] [address] Mar, [facility] [address] [address] Mar, [facility] [address] [address] Mar, [place] [address] [address] Feb, [place] [address] [address] Feb, [facility] [address] [address] Feb, [address] [address] Jan, HTN (hypertension) I10 ; Constipation K5 9.00 ; Chronic pain G89.29 ; Hyperlipidemia E78.5 ; Hypercholesterolemia E78.0 ; Insomnia G47.00 and Anxiety F41.[address] [address] Jan, [place] [address] [address] Dec, [address] [address] Nov, [address] [address] Oct, Chronic kidney disease, unspecified 585. 9 ; Chronic pain syndrome 338.4 ; Hyperlipidemia 272.4 and Essential hypertension 401.[address] [address] Oct, Chronic kidney disease 585.[address] [address] Oct, [address] [address] Oct, Chronic kidney disease, unspecified 585. 9 ; Hypercalcemia 275.42 ; Hyperlipidemia 272.4 ; Essential hypertension 401.9 ; Chronic pain syndrome 338.4 ; Insomnia 780.52 ; Constipation 564.00 ; Environmental allergies V15.09 and Anxiety 300.[address] [address] Oct, Chronic kidney disease 585.9 [facility] [address] [id number] [place] [address] 15 Oct, 2014 [facility] [address] [id number] [place] [address] 14 Oct, 2014 Chronic kidney disease 585.9 and Hyperli pidemia 272.4 [facility] [address] [id number] [place] [address] 10 Oct, 2014 [facility] [address] [id number] [place] [address] 10 Oct, 2014 [facility] [address] [id number] [place] [address] 18 Sep, 2014 [facility] [address] [id number] [place] [address] 15 Sep, 2014 [facility] [address] [id number] [place] [address] 15 Sep, 2014 Chronic kidney disease 585.9 and Hyperli pidemia 272.4 [facility] [address] [id number] [place] [address] Sep, [facility] [address] [id number] [place] [address] August, [facility] [address] [id number] [place] [address] August, [facility] [address] [id number] [place] [address] 14 Jul, 2014 [facility] [address] [id number] [place] [address] 13 Jul, 2014 [facility] [address] [id number] [place] [address] 20 Jun, 2014 [facility] [address] [id number] [place] [address] 20 Jun, 2014 [facility] [address] [id number] [place] [address] 16 Jun, 2014 [facility] [address] [id number] [place] [address] Jun, [facility] [address] [facility] [id number] [place] [address] Jun, [facility] [address] [id number] [place] [address] Jun, [facility] [address] [id number] [place] [address] Jun, [facility] [address] [id number] [place] [address] Jun, [facility] [address] [id number] [place] [address] May, [facility] [address] [id number] [place] [address] May, [facility] [address] [id number] [place] [address] May, [facility] [address] [id number] [place] [address] May, [facility] [address] [id number] [place] [address] Apr, [facility] [address] [id number] [place] [address] Apr, [facility] [address] [id number] [place] [address] Apr, [facility] [address] [id number] [place] [address] Apr, [facility] [address] [id number] [place] [address] Apr, [facility] [address] [id number] [place] [address] Apr, [facility] [address] [id number] [place] [address] Apr, [facility] [address] [id number] [place] [address] Apr, [facility] [address] [id number] [place] [address] Apr, [facility] [address] [id number] [place] [address] Apr, [facility] [address] [id number] [place] [address] Apr, [facility] [address] [id number] [place] [address] Mar, [facility] [address] [id number] [place] [address] Mar, [facility] [address] [id number] [place] [address] Feb, [facility] [address] [id number] [place] [address] Feb, [facility] [address] [id number] [place] [address] Feb, [facility] [address] [id number] [place] [address] Feb, [facility] [address] [id number] [place] [address] Feb, [facility] [address] [id number] [place] [address] Feb, [facility] [address] [id number] [place] [address] Feb, [facility] [address] [id number] [place] [address] Feb, [facility] [address] [id number] [place] [address] Feb, [facility] [address] [id number] [place] [address] Feb, [facility] [address] [id number] [place] [address] Jan, [facility] [address] [id number] [place] [address] Jan, [facility] [address] [facility] [id number] [place] [address] Jan, [facility] [address] [facility] [id number] [place] [address] Jan, [facility] [address] [id number] [place] [address] Jan, [facility] [address] [id number] [place] [address] Jan, [facility] [address] [id number] [place] [address] Jan, [facility] [address] [id number] [place] [address] Jan, [facility] [address] [id number] [place] [address] 16 Jan, 2014 [facility] [address] [id number] [place] [address] Jan, 2013 [facility] [address] [id number] [place] [address] Jan, [facility] [address] [id number] [place] [address] 26 Dec, 2013 [facility] [address] [id number] [place] [address] 26 Dec, 2013 [facility] [address] [id number] [place] [address] 19 Dec, 2013 [facility] [address] [id number] [place] [address] 19 Sep, 2013 [facility] [address] [id number] [place] [address] 18 Sep, 2013 [facility] [address] [id number] [place] [address] 18 Dec, 2013 [facility] [address] [id number] [place] [address] 03 Sep, 2013 [facility] [address] [facility] [id number] [place] [address] Dec, [facility] [address] [facility] [id number] [place] [address] Nov, [facility] [address] [facility] [id number] [place] [address] Nov, [facility] [address] [id number] [place] [address] Nov, [facility] [address] [facility] [id number] [place] [address] Nov, [facility] [address] [id number] [place] [address] Nov, [facility] [address] [id number] [place] [address] Nov, [facility] [address] [id number] [place] [address] Nov, [facility] [address] [id number] [place] [address] Nov, [facility] [address] [id number] [place] [address] Oct, [facility] [address] [id number] [place] [address] Oct, [facility] [address] [id number] [place] [address] Oct, [facility] [address] [id number] [place] [address] Oct, [facility] [address] [facility] [id number] [place] [address] Sep, [facility] [address] [id number] [place] [address] Sep, [facility] [address] [id number] [place] [address] Sep, [facility] [address] [id number] [place] [address] Sep, [facility] [address] [id number] [place] [address] Sep, [facility] [address] [id number] [place] [address] Sep, [facility] [address] [id number] [place] [address] Sep, [facility] [address] [id number] [place] [address] Sep, [facility] [address] [facility] [id number] [place] [address] August, [facility] [address] [id number] [place] [address] August, [facility] [address] [id number] [place] [address] August, [facility] [address] [id number] [place] [address] August, [facility] [address] [id number] [place] [address] August, [facility] [address] [id number] [place] [address] August, [facility] [address] [id number] [place] [address] August, [facility] [address] [id number] [place] [address] August, [facility] [address] [id number] [place] [address] August, [facility] [address] [id number] [place] [address] August, [facility] [address] [id number] [place] [address] Jul, [facility] [address] [id number] [place] [address] Jul, [facility] [address] [id number] [place] [address] Jul, [facility] [address] [facility] [id number] [facility] [address] Jul, [facility] [address] [facility] [id number] [place] [address] Jul, [facility] [address] [id number] [place] [address] Jul, [facility] [address] [id number] [place] [address] Jul, [facility] [address] [facility] [id number] [facility] [address] Jul, [facility] [address] [id number] [place] [address] Jun, [facility] [address] [id number] [place] [address] Jun, [facility] [address] [id number] [place] [address] Jun, [facility] [address] [facility] [id number] [place] [address] Jun, [facility] [address] [id number] [place] [address] Jun, [facility] [address] [id number] [place] [address] Jun, [facility] [address] [id number] [place] [address] May, [facility] [address] [facility] [id number] [place] [address] May, [facility] [address] [id number] [place] [address] May, [facility] [address] [id number] [place] [address] May, [facility] [address] [id number] [place] [address] May, [facility] [address] [id number] [place] [address] May, [facility] [address] [id number] [place] [address] May, [facility] [address] [id number] [place] [address] Apr, [facility] [address] [id number] [place] [address] Apr, [facility] [address] [id number] [place] [address] Apr, [facility] [address] [id number] [place] [address] Apr, [facility] [address] [id number] [place] [address] Apr, [facility] [address] [id number] [place] [address] Apr, [facility] [address] [id number] [place] [address] Mar, [facility] [address] [id number] [place] [address] 31 Mar, 2013 [facility] [address] [id number] [place] [address] Mar, [facility] [address] [id number] [place] [address] Mar, [facility] [address] [id number] [place] [address] Mar, [facility] [address] [id number] [place] [address] 19 Mar, 2013 [facility] [address] [id number] [place] [address] 16 Mar, 2013 [facility] [address] [id number] [place] [address] 16 Mar, 2013 [facility] [address] [id number] [place] [address] Mar, [facility] [address] [id number] [place] [address] Mar, [facility] [address] [id number] [place] [address] Feb, [facility] [address] [id number] [place] [address] Feb, [facility] [address] [id number] [place] [address] Feb, [facility] [address] [id number] [place] [address] Feb, [facility] [address] [id number] [place] [address] Feb, [facility] [address] [id number] [place] [address] Feb, [facility] [address] [id number] [place] [address] Feb, [facility] [address] [id number] [place] [address] Feb, [facility] [address] [id number] [place] [address] Feb, [facility] [address] [id number] [place] [address] Feb, [facility] [address] [id number] [place] [address] Jan, [facility] [address] [id number] [place] [address] Jan, [facility] [address] [id number] [place] [address] Jan, [facility] [address] [id number] [place] [address] Jan, [facility] [address] [id number] [place] [address] Jan, [facility] [address] [id number] [facility] [address] Jan, [facility] [address] [id number] [place] [address] Jan, [facility] [address] [facility] [id number] [place] [address] Jan, [facility] [address] [facility] [id number] [place] [address] Jan, [facility] [address] [facility] [id number] [place] [address] Dec, [facility] [address] [id number] [place] [address] Dec, [facility] [address] [id number] [place] [address] Dec, [facility] [address] [id number] [place] [address] Dec, [facility] [address] [id number] [place] [address] Nov, [facility] [address] [id number] [place] [address] Nov, [facility] [address] [id number] [place] [address] Nov, [facility] [address] [id number] [place] [address] Nov, [facility] [address] [facility] [id number] [place] [address] Nov, [facility] [address] [id number] [place] [address] Nov, [facility] [address] [id number] [place] [address] Oct, [facility] [address] [facility] [id number] [place] [address] Oct, [facility] [address] [id number] [place] [address] Oct, [facility] [address] [id number] [place] [address] 08 Oct, 2012 [facility] [address] [id number] [place] [address] 27 Sep, 2012 [facility] [address] [id number] [place] [address] Sep, [facility] [address] [id number] [place] [address] 17 Sep, 2012 [facility] [address] [id number] [place] [address] 14 Sep, 2012 [facility] [address] [id number] [place] [address] Sep, [facility] [address] [id number] [place] [address] August, [facility] [address] [id number] [place] [address] August, [facility] [address] [id number] [place] [address] Jul, [facility] [address] [id number] [place] [address] Jul, [facility] [address] [id number] [place] [address] 15 Jul, 2012 [facility] [address] [id number] [place] [address] 09 Jul, 2012 [facility] [address] [id number] [place] [address] 08 Jul, 2012 [facility] [address] [id number] [place] [address] 26 Jun, 2012 [facility] [address] [id number] [place] [address] 20 Jun, 2012 [facility] [address] [id number] [place] [address] 15 Jun, 2012 [facility] [address] [id number] [place] [address] Jun, [facility] [address] [id number] [place] [address] Jun, [facility] [address] [id number] [place] [address] May, [facility] [address] [id number] [place] [address] May, [facility] [address] [id number] [place] [address] May, [facility] [address] [id number] [place] [address] May, [facility] [address] [id number] [place] [address] May, [facility] [address] [id number] [place] [address] May, [facility] [address] [id number] [place] [address] May, [facility] [address] [id number] [place] [address] May, [facility] [address] [id number] [place] [address] May, [facility] [address] [id number] [place] [address] Apr, [facility] [address] [id number] [place] [address] Apr, [facility] [address] [id number] [place] [address] Apr, [facility] [id number] [place] [address] Apr, [facility] [address] [id number] [place] [address] Apr, [facility] [address] [id number] [place] [address] Mar, [facility] [address] [id number] [place] [address] Mar, [facility] [address] [id number] [place] [address] Mar, [facility] [address] [id number] [place] [address] Mar, [facility] [address] [id number] [place] [address] Mar, [facility] [address] [id number] [place] [address] Mar, [facility] [address] [id number] [place] [address] Mar, [facility] [address] [id number] [place] [address] Mar, [facility] [address] [id number] [place] [address] Mar, [facility] [address] [id number] [place] [address] Mar, [facility] [address] [id number] [place] [address] Feb, [facility] [address] [id number] [place] [address] Feb, [facility] [address] [id number] [place] [address] Feb, [facility] [address] [id number] [place] [address] Feb, [facility] [address] [id number] [place] [address] Feb, [facility] [address] [id number] [place] [address] Feb, [facility] [address] [id number] [place] [address] Feb, [facility] [address] [id number] [place] [address] Feb, [facility] [address] [id number] [place] [address] 16 Feb, 2012 [facility] [address] [id number] [place] [address] 16 Feb, 2012 [facility] [address] [id number] [place] [address] 13 Feb, 2012 [facility] [address] [id number] [place] [address] Feb, [facility] [address] [id number] [place] [address] Feb, [facility] [address] [id number] [place] [address] Feb, [facility] [address] [id number] [place] [address] Feb, [facility] [address] [id number] [place] [address] Feb, [facility] [address] [id number] [place] [address] Feb, [facility] [address] [id number] [place] [address] Feb, [facility] [address] [id number] [place] [address] Jan, [facility] [address] [id number] [place] [address] Jan, [facility] [address] [id number] [place] [address] Jan, [facility] [address] [id number] [place] [address] 31 Jan, 2012 [facility] [address] [id number] [place] [address] Jan, [facility] [address] [id number] [place] [address] Jan, [facility] [address] [id number] [place] [address] Jan, [facility] [address] [id number] [place] [address] Jan, [facility] [address] [id number] [place] [address] Jan, [facility] [address] [id number] [place] [address] Jan, [facility] [address] [id number] [place] [address] Dec, [facility] [address] [id number] [place] [address] Dec, [facility] [address] [id number] [place] [address] Dec, [facility] [address] [id number] [place] [address] Dec, [facility] [address] [id number] [place] [address] Nov, [facility] [address] [id number] [place] [address] Nov, [facility] [address] [id number] [place] [address] Nov, [facility] [address] [id number] [place] [address] Nov, [facility] [address] [id number] [place] [address] Nov, [facility] [address] [id number] [place] [address] Nov, [facility] [address] [id number] [place] [address] Oct, [facility] [address] [id number] [place] [address] Oct, [facility] [address] [id number] [place] [address] Oct, [facility] [address] [id number] [place] [address] Oct, [facility] [address] [id number] [place] [address] Oct, [facility] [address] [id number] [place] [address] Sep, [facility] [address] [id number] [place] [address] Sep, [facility] [address] [id number] [place] [address] Sep, [facility] [address] [id number] [place] [address] Sep, [facility] [address] [id number] [place] [address] Sep, [facility] [address] [id number] [place] [address] August, [facility] [address] [id number] [place] [address] August, [facility] [address] [id number] [place] [address] August, [facility] [address] [id number] [place] [address] August, [facility] [address] [id number] [place] [place] [address] Jul, [facility] [address] [id number] [place] [address] 24 Jul, 2011 [facility] [address] [id number] [place] [address] Jul, [facility] [address] [id number] [place] [address] Jul, [facility] [address] [id number] [place] [address] Jul, [facility] [address] [id number] [place] [address] Jul, [facility] [address] [id number] [place] [address] Jul, [facility] [address] [id number] [place] [address] Jul, [facility] [address] [id number] [place] [address] Jul, [facility] [address] [id number] [place] [address] Jul, [facility] [address] [id number] [place] [address] Jul, [facility] [address] [id number] [place] [address] Jul, [facility] [address] [id number] [place] [address] Jul, [facility] [address] [id number] [place] [address] Jul, [facility] [address] [id number] [place] [address] Jun, [facility] [address] [id number] [place] [address] Jun, [facility] [address] [id number] [place] [address] Jun, [facility] [address] [id number] [place] [address] Jun, [facility] [address] [id number] [place] [address] May, [facility] [address] [id number] [place] [address] May, [facility] [address] [id number] [place] [address] May, [facility] [address] [id number] [place] [address] Apr, [facility] [address] [id number] [place] [address] 18 Apr, 2011 [facility] [address] [id number] [place] [address] 13 Apr, 2011 [facility] [address] [id number] [place] [address] 11 Apr, 2011 [facility] [address] [id number] [place] [address] 09 Apr, 2011 [facility] [address] [id number] [place] [address] Mar, [facility] [address] [id number] [place] [address] Mar, [facility] [address] [id number] [place] [address] Mar, [facility] [address] [id number] [place] [address] Mar, [facility] [address] [id number] [place] [address] Mar, [facility] [address] [id number] [place] [address] Mar, [facility] [address] [id number] [place] [address] Mar, [facility] [address] [id number] [place] [address] Feb, [facility] [address] [id number] [place] [address] Feb, [facility] [address] [id number] [place] [address] Feb, [facility] [id number] [place] [address] Feb, [facility] [address] [id number] [place] [address] 16 Feb, 2011 [facility] [address] [id number] [place] [address] 14 Feb, 2011 [facility] [address] [id number] [place] [address] 10 Feb, 2011 [facility] [address] [id number] [place] [address] 31 Jan, 2011 [facility] [address] [id number] [place] [address] 31 Jan, 2011 [facility] [address] [id number] [place] [address] 31 Jan, 2011 [facility] [address] [id number] [place] [address] 18 Jan, 2011 [facility] [address] [id number] [place] [address] Jan, [facility] [address] [id number] [place] [address] 17 Jan, 2011 [facility] [address] [id number] [place] [address] 17 Jun, 2010 [facility] [address] [id number] [place] [address] 30 Mar, 2010 [facility] [address] [id number] [place] [address] 20 Mar, 2010 [facility] [address] [id number] [place] [address] 14 Mar, 2010 [facility] [address] [id number] [place] [address] 14 Mar, 2010 [facility] [address] [id number] [place] [address] 13 Mar, 2010 [facility] [address] [id number] [place] [address] 07 Mar, 2010 [facility] [address] [id number] [place] [address] 02 Mar, 2010 [facility] [address] [id number] [place] [address] Mar, [facility] [address] [id number] [place] [address] 30 Feb, 2010 [facility] [address] [facility] [id number] [place] [address] 29 Feb, 2010 [facility] [address] [id number] [place] [address] 17 Feb, 2010 [facility] [address] [id number] [place] [address] 17 Feb, 2010 [facility] [address] [id number] [place] [address] 16 Feb, 2010 [facility] [address] [facility] [id number] [facility] [place] [address] 08 Feb, 2010 [facility] [address] [id number] [place] [address] 04 Feb, 2010 [facility] [address] [id number] [place] [address] Feb, [facility] [address] [id number] [place] [address] 28 Jan, 2010 [facility] [address] [id number] [place] [address] Jan, [facility] [address] [id number] [place] [address] 25 Jan, 2010 [facility] [address] [id number] [place] [address] Jan, [facility] [address] [id number] [place] [address] 29 Mar, 2009 [facility] [address] [facility] [id number] [place] [address] 22 Mar, 2009 [facility] [address] [id number] [place] [address] 19 Mar, 2009 [facility] [address] [id number] [place] [address] 19 Mar, 2009 [facility] [address] [id number] [place] [address] 14 Mar, 2009 [facility] [address] [id number] [place] [address] Mar, [facility] [address] [id number] [place] [address] Feb, [facility] [address] [id number] [place] [address] Feb, [facility] [address] [id number] [place] [address] Jan, [facility] [address] [id number] [place] [address] Sep, [facility] [address] [id number] [place] [address] May, IMMUNIZATIONS No Known Immunizations SOCIAL HISTORY [...] surgery Hospitalization History [facility] in [place]- Spontane ous Pneumothorax Hospitalization History [facility]- Colon resection Hospitalization History [facility] - diarrhea/ couldnt urin ate nov 2017 Hospitalization History pain /hip to foot right side 10/16/19 19
--- OUTSIDE RECORDS SUMMARY | 2019-08-28 09:04 | XMS REPORT ---
Author Author Dixon Lundberg Doctor Organization [facility] Address Unknown Phone Unavailable Care Team Providers Care Research Contracts Supervisor Name Role Phone Migration, Doctor Unavailable Unavailable PROBLEMS Type Condition ICD9-CM Code TOG75-XX Code Onset Dates Condition S tatus SNOMED Code Problem Insomnia G47.00 Active 464119662 Problem Anxiety F41.9 Active 80083031 Problem HTN (hypertension) I10 Active 3 0235963 Problem Hyperlipidemia E78.5 Active 61167 004 Problem Thoracic back pain, unspecif ied back pain laterality, unspecified chronicity M54.6 Active 971200925 Problem Vitamin D deficiency E55.9 Active 50821283 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 02996537 Problem Chronic pain G89.29 Active 1195577 1 Problem Schizophrenia, unspecified type F20.9 Active 92864219 Problem Constipation K59.00 Active 4924853 8 Problem Environmental allergies Z91.09 Active 250929822 Problem Primary insomnia F51.01 Active 397 2004 Problem Chronic kidney disease, stage III (moderate) N18.3 Active 178747506 Problem Vision loss H54.7 Active 21422949 1 ALLERGIES No Information ENCOUNTERS Encounter Location Date Diagnosis [place] [id number] [place] [address] Dec, Thoracic back pain, unspecif ied back pain laterality, unspecified chronicity M54.6 [place] [address] [place] [id number] [place] [address] Dec, Thoracic back pain, unspecif ied back pain laterality, unspecified chronicity M54.6 [place] [address] [place] [id number] [address] [place] [address] Nov, Thoracic back pain, unspecif ied back pain laterality, unspecified chronicity M54.6 [place] [address] [place] [id number] [place] [address] Nov, Anxiety F41.9 and Thoracic b ack pain, unspecified back pain laterality, unspecified chronicity M54.6 [facility] [address] [id number] [address] [place] [address] Nov, [facility] [address] [id number] [address] [place] [address] Nov, [facility] [address] [id number] [address] [place] [address] Nov, [facility] [address] [id number] [address] [place] [address] Oct, Thoracic back pain, unspecif ied back pain laterality, unspecified chronicity M54.6 [facility] [address] [id number] [address] [place] [address] Oct, Anxiety F41.9 and Thoracic b ack pain, unspecified back pain laterality, unspecified chronicity M54.6 [facility] [address] [id number] [address] [place] [address] Oct, Schizophrenia, unspecified t ype F20.9 and Acute kidney injury N17.9 [facility] [address] [id number] [address] [place] [address] Oct, [facility] [address] [id number] [address] [place] [address] Oct, [facility] [address] [id number] [address] [place] [id number] Oct, Thoracic back pain, unspecif ied back pain laterality, unspecified chronicity M54.6 [facility] [address] [id number] [address] [place] [address] Oct, [facility] [address] [id number] [address] [place] [address] Oct, [facility] [address] [id number] [address] [place] [address] Sep, Anxiety F41.9 [facility] [address] [id number] [address] [place] [address] Sep, [facility] [address] [id number] [address] [place] [address] Sep, Thoracic back pain, unspecif ied back pain laterality, unspecified chronicity M54.6 [facility] [address] [id number] [address] [place] [address] Sep, [facility] [address] [id number] [address] [place] [address] Sep, [facility] [address] [id number] [address] [place] [address] Sep, [facility] [address] [id number] [address] [place] [address] Sep, [facility] [address] [id number] [address] [place] [address] Sep, [facility] [address] [id number] [address] [place] [address] Sep, [facility] [address] [id number] [address] [place] [address] Sep, Chronic pain G89.29 ; Chroni c kidney disease, stage III (moderate) N18.3 ; Hyperlipidemia E78.5 and Insomnia G47.00 [facility] [address] [id number] [address] [place] [address] Sep, Thoracic back pain, unspecif ied back pain laterality, unspecified chronicity M54.6 [facility] [address] [id number] [address] [place] [address] August, Anxiety F41.9 [facility] [address] [facility] [id number] [address] [place] [address] August, Thoracic back pain, unspecif ied back pain laterality, unspecified chronicity M54.6 and Anxiety F41.9 [facility] [address] [id number] [address] [place] [address] August, 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 [facility] [address] [id number] [address] [place] [address] August, 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 [facility] [address] [id number] [address] [place] [address] August, [facility] [address] [id number] [address] [place] [address] August, [facility] [address] [id number] [address] [place] [address] August, Thoracic back pain, unspecif ied back pain laterality, unspecified chronicity M54.6 [facility] [address] [id number] [address] [place] [address] August, [facility] [address] [id number] [address] [place] [address] August, Anxiety F41.9 and Thoracic b ack pain, unspecified back pain laterality, unspecified chronicity M54.6 [facility] [address] [id number] [address] [place] [address] Jul, [facility] [address] [id number] [address] [place] [address] Jul, Thoracic back pain, unspecif ied back pain laterality, unspecified chronicity M54.6 [facility] [address] [id number] [address] [place] [address] Jun, Anxiety F41.9 and Thoracic b ack pain, unspecified back pain laterality, unspecified chronicity M54.6 [facility] [address] [id number] [address] [place] [address] Jun, Anxiety F41.9 and Thoracic b ack pain, unspecified back pain laterality, unspecified chronicity M54.6 [facility] [address] [id number] [address] [place] [address] Jun, Thoracic back pain, unspecif ied back pain laterality, unspecified chronicity M54.6 [facility] [address] [id number] [address] [place] [address] Jun, Anxiety F41.9 and Thoracic b ack pain, unspecified back pain laterality, unspecified chronicity M54.6 [facility] [address] [facility] [id number] [address] [place] [address] May, [facility] [address] [id number] [address] [place] [address] May, [facility] [address] [facility] [id number] [address] [place] [address] May, [facility] [address] [facility] [id number] [address] [place] [address] May, Anxiety F41.9 and Encounter for medication monitoring Z51.81 [place] [address] [facility] [id number] [address] [place] [address] May, Anxiety F41.9 and Thoracic b ack pain, unspecified back pain laterality, unspecified chronicity M54.6 [place] [address] [facility] [id number] [address] [place] [address] Apr, Hyperlipidemia 272.4 [place] [address] [facility] [id number] [address] [place] [address] Apr, Chronic pain G89.29 ; Anxiet y F41.9 ; Cervical radiculopathy M54.12 and Vision loss H54.7 [facility] [address] [facility] [id number] [address] [place] [address] Apr, [facility] [address] [facility] [id number] [address] [place] [address] Apr, Anxiety F41.9 and Thoracic b ack pain, unspecified back pain laterality, unspecified chronicity M54.6 [facility] [address] [facility] [id number] [address] [place] [address] Mar, [facility] [address] [id number] [address] [place] [address] Mar, Anxiety F41.9 and Thoracic b ack pain, unspecified back pain laterality, unspecified chronicity M54.6 [facility] [address] [id number] [address] [place] [address] 14 Feb, 2018 Anxiety F41.9 and Thoracic b ack pain, unspecified back pain laterality, unspecified chronicity M54.6 [facility] [address] [id number] [address] [place] [address] 07 Feb, 2018 Thoracic back pain, unspecif ied back pain laterality, unspecified chronicity M54.6 [facility] [address] [id number] [address] [place] [address] 29 Jan, 2018 [facility] [address] [id number] [address] [place] [address] Jan, Anxiety F41.9 and Thoracic b ack pain, unspecified back pain laterality, unspecified chronicity M54.6 [facility] [address] [id number] [address] [place] [address] Dec, Diarrhea of presumed infecti ous origin R19.7 [facility] [address] [id number] [address] [place] [address] Dec, Diarrhea of presumed infecti ous origin R19.7 [facility] [address] [id number] [address] [place] [address] 18 Dec, 2017 Thoracic back pain, unspecif ied back pain laterality, unspecified chronicity M54.6 [facility] [address] [id number] [address] [place] [address] 17 Dec, 2017 [facility] [address] [id number] [address] [place] [address] 17 Dec, 2017 Anxiety F41.9 and Thoracic b ack pain, unspecified back pain laterality, unspecified chronicity M54.6 [place] [address] [facility] [id number] [address] [place] [address] Dec, Diarrhea of presumed infecti ous origin R19.7 [place] [address] [facility] [id number] [address] [place] [address] Dec, [place] [address] [facility] [id number] [address] [place] [address] Dec, Anxiety F41.9 and Thoracic b ack pain, unspecified back pain laterality, unspecified chronicity M54.6 [place] [address] [place] [id number] [place] [address] Dec, Anxiety F41.9 and Thoracic b ack pain, unspecified back pain laterality, unspecified chronicity M54.6 [facility] [address] [place] [id number] Dec, Diarrhea of presumed infectious origin R 19.7 ; Anxiety F41.9 ; Thoracic back pain, unspecified back pain laterality, unspecified chronicity M54.6 and HTN (hypertension) I10 [place] [address] [place] [id number] [place] [address] Dec, Anxiety F41.9 [facility] [address] [place] [id number] Dec, Anxiety F41.9 ; Diarrhea of presumed inf ectious origin R19.7 ; Generalized abdominal pain R10.84 and Localized edema R60.0 [place] [address] [facility] [id number] [address] [place] [address] Nov, [facility] [employer] [address] [place] [id number] Nov, Anxiety F41.9 ; Urinary retention R33.9 ; Diarrhea of presumed infectious origin R19.7 ; Weakness R53.1 ; Acute kidney failure, unspecified N17.9 ; Chronic kidney disease, stage III (moderate) N18.3 and Thoracic back pain, unspecified back pain laterality, unspecified chronicity M54.6 [place] [address] [place] [id number] [place] [address] Oct, Thoracic back pain, unspecif ied back pain laterality, unspecified chronicity M54.6 and Anxiety F41.9 [place] [address] [facility] [id number] [address] [place] [address] Sep, Thoracic back pain, unspecif ied back pain laterality, unspecified chronicity M54.6 and Anxiety F41.9 [place] [address] [facility] [id number] [address] [place] [address] Sep, Thoracic back pain, unspecif ied back pain laterality, unspecified chronicity M54.6 ; Anxiety F41.9 and Encounter for medication monitoring Z51.81 [place] [address] [facility] [id number] [address] [place] [address] August, [place] [address] [place] [id number] [address] [place] [address] August, Thoracic back pain, unspecif ied back pain laterality, unspecified chronicity M54.6 and Anxiety F41.9 [place] [address] [place] [id number] [place] [address] August, Hyperlipidemia E78.5 and HTN (hypertension) I10 [place] [address] [place] [id number] [address] [place] [address] August, [place] [address] [place] [id number] [address] [place] [address] August, Medicare welcome exam Z00.00 ; Chronic kidney failure N18.9 ; Anxiety F41.9 ; Chronic pain G89.29 ; Insomnia G47.00 ; Hyperlipidemia E78.5 ; HTN (hypertension) I10 and Thoracic back pain, unspecified back pain laterality, unspecified chronicity M54.6 [facility] [address] [facility] [id number] [address] [place] [address] Jul, [facility] [address] [facility] [id number] [address] [place] [address] Jul, [facility] [address] [id number] [address] [place] [address] Jul, [place] [address] [id number] [address] [place] [address] Jul, Anxiety F41.9 [place] [address] [id number] [address] [place] [address] Jul, Thoracic back pain, unspecif ied back pain laterality, unspecified chronicity M54.6 and Anxiety F41.9 [place] [address] [id number] [address] [place] [address] Jun, Thoracic back pain, unspecif ied back pain laterality, unspecified chronicity M54.6 and Anxiety F41.9 [place] [address] [id number] [address] [place] [address] 12 May, 2017 Thoracic back pain, unspecif ied back pain laterality, unspecified chronicity M54.6 and Anxiety F41.9 [place] [address] [id number] [address] [place] [address] Apr, Thoracic back pain, unspecif ied back pain laterality, unspecified chronicity M54.6 and Anxiety F41.9 [place] [address] [id number] [address] [place] [address] Mar, [place] [address] [id number] [address] [place] [address] 14 Mar, 2017 Thoracic back pain, unspecif ied back pain laterality, unspecified chronicity M54.6 and Anxiety F41.9 [place] [address] [id number] [address] [place] [address] 14 Mar, 2017 Thoracic back pain, unspecif ied back pain laterality, unspecified chronicity M54.6 ; HTN (hypertension) I10 ; Hyperlipidemia E78.5 and Anxiety F41.9 [place] [address] [id number] [address] [place] [address] Feb, Thoracic back pain, unspecif ied back pain laterality, unspecified chronicity M54.6 and Anxiety F41.9 [facility] [address] [id number] [address] [place] [address] Nov, [facility] [address] [facility] [id number] [address] [place] [address] Oct, [facility] [address] [facility] [id number] [address] [place] [address] Oct, Thoracic back pain, unspecif ied back pain laterality, unspecified chronicity M54.6 [facility] [address] [facility] [id number] [address] [place] [address] Oct, HTN (hypertension) I10 ; Con stipation K59.00 ; Hyperlipidemia E78.5 ; Thoracic back pain, unspecified back pain laterality, unspecified chronicity M54.6 ; Chronic pain G89.29 ; Anxiety F41.9 ; Chronic kidney failure N18.9 ; Environmental allergies Z91.09 ; Vitamin D deficiency E55.9 and Primary insomnia F51.01 [facility] [address] [facility] [id number] [address] [place] [address] Sep, Anxiety F41.9 [facility] [address] [facility] [id number] [address] [place] [address] Sep, [facility] [address] [facility] [id number] [address] [place] [address] August, Anxiety F41.9 [facility] [address] [facility] [id number] [address] [place] [address] August, [facility] [address] [facility] [id number] [address] [place] [address] Jul, Anxiety F41.9 [facility] [address] [facility] [id number] [address] [place] [address] Jul, [facility] [address] [facility] [id number] [address] [place] [address] Jun, Anxiety F41.9 [facility] [address] [facility] [id number] [address] [place] [address] Jun, [facility] [address] [id number] [address] [place] [address] May, [facility] [address] [facility] [id number] [address] [place] [address] May, [facility] [address] [facility] [id number] [address] [place] [address] May, [facility] [address] [facility] [id number] [address] [place] [address] Apr, [facility] [address] [facility] [id number] [address] [place] [address] Apr, [facility] [address] [facility] [id number] [address] [place] [address] Apr, Anxiety F41.9 [facility] [address] [facility] [id number] [address] [place] [address] Apr, Anxiety F41.9 [facility] [address] [facility] [id number] [address] [place] [address] Apr, [facility] [address] [facility] [id number] [address] [place] [address] Mar, HTN (hypertension) I10 ; Phillip mor R25.1 ; Hypercholesterolemia E78.0 ; Constipation K59.00 ; Chronic pain G89.29 ; Hyperlipidemia E78.5 ; Insomnia G47.00 ; Anxiety F41.9 and Thoracic back pain, unspecified back pain laterality, unspecified chronicity M54.6 [facility] [address] [facility] [id number] [address] [place] [address] Mar, Tremor R25.1 ; HTN (hyperten stas) I10 ; Hypercholesterolemia E78.0 ; Constipation K59.00 ; Chronic pain G89.29 ; Hyperlipidemia E78.5 ; Insomnia G47.00 ; Anxiety F41.9 and Thoracic back pain, unspecified back pain laterality, unspecified chronicity M54.6 [facility] [address] [id number] [address] [place] [address], [place] [address] 07 Mar, 2016 [facility] [address] [id number] [address] [place] [address], [place] [address] Mar, [facility] [address] [id number] [address] [place] [address], [place] [address] Feb, [facility] [address] [id number] [address] [place] [address], [place] [id number] Jan, [facility] [address] [id number] [address] [place] [address], [place] [address] Jan, [facility] [address] [id number] [address] [place] [address], [place] [id number] 15 Dec, 2015 [facility] [address] [id number] [address] [place] [address], [place] [address] Nov, [facility] [address] [id number] [address] [place] [address], [place] [id number] Nov, [facility] [address] [id number] [address] [place] [address], [place] [address] Oct, Anxiety F41.9 [facility] [address] [id number] [address] [place] [address], [place] [address] Oct, Chronic pain G89.29 [facility] [address] [id number] [address] [place] [address], [place] [address] Sep, [facility] [address] [id number] [address] [place] [address] Sep, [facility] [address] [id number] [address] [place] [address], [place] [address] Sep, [facility] [address] [id number] [address] [place] [address], [place] [address] Sep, [facility] [address] [id number] [address] [place] [address], [place] [address] 16 Sep, 2015 Chronic pain syndrome G89.4 [facility] [address] [id number] [address] [place] [id number] Sep, HTN (hypertension) I10 ; Chr onic pain G89.29 ; Hypercholesterolemia E78.0 ; Chronic kidney failure N18.9 ; Constipation, unspecified constipation type K59.00 ; Anxiety F41.9 and Thoracic back pain, unspecified back pain laterality, unspecified chronicity M54.6 [place] [address] [address] [place] [id number] [address] [place] [id number] August, Chronic pain syndrome G89.4 [place] [address] [id number] August, Chronic pain syndrome G89.4 [place] [address] [address] Jul, Anxiety disorder, unspecifie d F41.9 and Chronic pain syndrome G89.4 [place] [address] [address] Jul, Insomnia, unspecified G47.00 and Chronic pain syndrome G89.4 [place] [address] [place] [id number] [address] [place] [address] Jul, Allergic rhinitis J30.9 [place] [address] [place] [id number] [address] [place] [id number] Jul, Constipation, unspecified K5 9.00 [place] [address] [place] [id number] [address] [place] [phone] Jul, [place] [address] [place] [id number] [address] [place] [id number] Jun, [place] [address] [id number] Jun, [place] [address] [place] [id number] [address] [place] [id number] Jun, [place] [address] [id number] Jun, [facility] [address] [facility] [id number] [address] [place] [id number] Jun, [facility] [address] [facility] [id number] [address] [place] [id number] Jun, [facility] [address] [facility] [id number] [address] [place] [id number] May, [facility] [address] [facility] [id number] [address] [place] [id number] May, [facility] [address] [facility] [id number] [address] [place] [id number] May, Anxiety F41.9 ; Insomnia G47 .00 ; Hyperlipidemia E78.5 ; Chronic pain G89.29 ; HTN (hypertension) I10 ; Environmental allergies V15.09 and Constipation 564.00 [facility] [address] [facility] [id number] [address] [place] [id number] Apr, [facility] [address] [facility] [id number] [address] [place] [address] Apr, [facility] [address] [facility] [id number] [address] [place] [id number] Apr, [facility] [address] [facility] [id number] [address] [place] [address] Mar, [facility] [address] [facility] [id number] [address] [place] [address] Mar, [facility] [address] [facility] [id number] [address] [place] [address] Mar, [facility] [address] [facility] [id number] [address] [place] [address] Feb, [facility] [address] [facility] [id number] [address] [place] [address] Feb, [facility] [address] [facility] [id number] [address] [place] [address] Feb, [facility] [address] [place] [id number] [address] [place] [address] Jan, HTN (hypertension) I10 ; Con stipation K59.00 ; Chronic pain G89.29 ; Hyperlipidemia E78.5 ; Hypercholesterolemia E78.0 ; Insomnia G47.00 and Anxiety F41.[address] [address] Jan, [address] [address] Dec, [address] [address] Nov, [address] [address] Oct, Chronic kidney disease, unsp ecified 585.9 ; Chronic pain syndrome 338.4 ; Hyperlipidemia 272.4 and Essential hypertension 401.[address] [address] Oct, Chronic kidney disease 585.[address] [address] Oct, [address] [address] Oct, Chronic kidney disease, unsp ecified 585.9 ; Hypercalcemia 275.42 ; Hyperlipidemia 272.4 ; Essential hypertension 401.9 ; Chronic pain syndrome 338.4 ; Insomnia 780.52 ; Constipation 564.00 ; Environmental allergies V15.09 and Anxiety 300.[address] [address] Oct, Chronic kidney disease 585.[address] [address] Oct, [address] [address] Oct, Chronic kidney disease 585.9 and Hyperlipidemia 272.4 [facility] [address] [id number] [address] [place] [address], [place] [address] 10 Oct, 2014 [facility] [place] [address] [id number] [address] [place] [address], [place] [address] 10 Oct, 2014 [facility] [address] [id number] [address] [place] [address], [place] [address] 18 Sep, 2014 [facility] [address] [id number] [address] [place] [address], [place] [address] 15 Sep, 2014 [facility] [address] [id number] [address] [place] [address], [place] [address] Sep, Chronic kidney disease 585.9 and Hyperlipidemia 272.4 [facility] [address] [id number] [address] [place] [address], [place] [address] Sep, [facility] [address] [id number] [address] [place] [address], [place] [address] August, [facility] [address] [id number] [address] [place] [address], [place] [address] August, [facility] [address] [id number] [address] [place] [address], [place] [address] 14 Jul, 2014 [facility] [address] [id number] [address] [place] [address], [place] [address] 13 Jul, 2014 [facility] [address] [id number] [address] [place] [address], [place] [address] 20 Jun, 2014 [facility] [address] [id number] [address] [place] [address], [place] [address] 20 Jun, 2014 [facility] [address] [id number] [address] [place] [address], [place] [address] 16 Jun, 2014 [facility] [address] [id number] [address] [place] [address], [place] [address] 16 Jun, 2014 [facility] [address] [id number] [address] [place] [address], [place] [address] Jun, [facility] [address] [id number] [address] [place] [address], [place] [address] Jun, [facility] [address] [id number] [address] [place] [address], [place] [address] Jun, [facility] [address] [id number] [address] [place] [address], [place] [address] Jun, [facility] [address] [id number] [address] [place] [address], [place] [address] May, [facility] [address] [id number] [address] [place] [address], [place] [address] May, [facility] [address] [id number] [address] [place] [address], [place] [address] May, [facility] [address] [id number] [address] [place] [address], [place] [address] May, [facility] [address] [id number] [address] [place] [address], [place] [address] Apr, [facility] [address] [id number] [address] [place] [address], [place] [address] Apr, [facility] [address] [id number] [address] [place] [address], [place] [address] Apr, [facility] [address] [id number] [address] [place] [address], [place] [address] Apr, [facility] [address] [id number] [address] [place] [id number] Apr, [facility] [address] [id number] [address] [place] [address], [place] [address] Apr, [facility] [address] [id number] [address] [place] [address], [place] [address] Apr, [facility] [address] [id number] [address] [place] [address], [place] [address] Apr, [facility] [address] [id number] [address] [place] [address], [place] [address] 16 Apr, 2014 [facility] [address] [id number] [address] [place] [address], [place] [address] Apr, [facility] [address] [id number] [address] [place] [address], [place] [address] Apr, [facility] [address] [id number] [address] [place] [address], [place] [address] Mar, [facility] [address] [id number] [address] [place] [address], [place] [address] Mar, [facility] [address] [id number] [address] [place] [address], [place] [address] Feb, [facility] [address] [id number] [address] [place] [address], [place] [address] Feb, [facility] [address] [id number] [address] [place] [address], [place] [address] Feb, [facility] [address] [id number] [address] [place] [address], [place] [address] Feb, [facility] [address] [id number] [address] [place] [address], [place] [address] Feb, [facility] [address] [id number] [address] [place] [address], [place] [address] Feb, [facility] [address] [id number] [address] [place] [address], [place] [address] Feb, [facility] [address] [id number] [address] [place] [address], [place] [address] Feb, [facility] [address] [id number] [address] [place] [address], [place] [address] Feb, [facility] [address] [id number] [address] [place] [address], [place] [address] Feb, [facility] [address] [id number] [address] [place] [address], [place] [address] Jan, [facility] [address] [id number] [address] [place] [address], [place] [address] Jan, [facility] [address] [id number] [address] [place] [address], [place] [address] Jan, [facility] [address] [id number] [address] [place] [address], [place] [address] Jan, [facility] [address] [id number] [address] [place] [address], [place] [address] Jan, [facility] [address] [id number] [address] [place] [address], [place] [address] 24 Jan, 2014 [facility] [address] [id number] [address] [place] [address], [place] [address] Jan, [facility] [address] [id number] [address] [place] [address], [place] [address] Jan, [facility] [address] [id number] [address] [place] [address], [place] [address] 16 Jan, 2014 [facility] [address] [id number] [address] [place] [address], [place] [address] Jan, [facility] [address] [id number] [address] [place] [address], [place] [address] 06 Jan, 2014 [facility] [address] [id number] [address] [place] [address], [place] [address] 26 Dec, 2013 [facility] [address] [id number] [address] [place] [address], [place] [address] 26 Dec, 2013 [facility] [address] [id number] [address] [place] [address], [place] [address] 19 Dec, 2013 [facility] [address] [id number] [address] [place] [address], [place] [address] 19 Dec, 2013 [facility] [address] [id number] [address] [place] [address], [place] [address] 18 Sep, 2013 [facility] [address] [id number] [address] [place] [address], [place] [address] Dec, [facility] [address] [id number] [address] [place] [address], [place] [address] Dec, [facility] [address] [id number] [address] [place] [address], [place] [address] Dec, [facility] [address] [id number] [address] [place] [address], [place] [address] Nov, [facility] [address] [id number] [address] [place] [address], [place] [address] Nov, [facility] [address] [id number] [address] [place] [address], [place] [address] Nov, [facility] [address] [id number] [address] [place] [address], [place] [address] Nov, [facility] [address] [id number] [address] [place] [address], [place] [address] Nov, [facility] [address] [id number] [address] [place] [address], [place] [address] Nov, [facility] [address] [id number] [address] [place] [address], [place] [address] Nov, [facility] [address] [id number] [address] [place] [address], [place] [address] Nov, [facility] [address] [id number] [address] [place] [address], [place] [address] Oct, [facility] [address] [id number] [address] [place] [address], [place] [address] Oct, [facility] [address] [id number] [address] [place] [address], [place] [address] Oct, [facility] [address] [id number] [address] [place] [address], [place] [address] Oct, [facility] [address] [id number] [address] [place] [address], [place] [address] Sep, [facility] [address] [id number] [facility] [place] [address] Sep, [facility] [address] [id number] [facility] [place] [address] Sep, [facility] [address] [id number] [facility] [place] [address] Sep, [facility] [address] [id number] [address] [place] [address], [place] [address] Sep, [facility] [address] [id number] [address] [place] [address], [place] [address] Sep, [facility] [address] [id number] [address] [place] [address], [place] [address] Sep, [facility] [address] [id number] [address] [place] [address], [place] [address] Sep, [facility] [address] [id number] [address] [place] [address], [place] [address] August, [facility] [address] [id number] [address] [place] [address], [place] [address] August, [facility] [address] [id number] [address] [place] [address], [place] [address] August, [facility] [address] [id number] [address] [place] [address], [place] [address] August, [facility] [address] [id number] [address] [place] [address], [place] [address] August, [facility] [address] [id number] [address] [place] [address], [place] [address] August, [facility] [address] [id number] [address] [place] [address], [place] [address] August, [facility] [address] [id number] [address] [place] [address], [place] [address] August, [facility] [address] [id number] [address] [place] [address], [place] [address] August, [facility] [address] [id number] [address] [place] [address], [place] [address] August, [facility] [address] [id number] [address] [place] [address], [place] [address] Jul, [facility] [address] [id number] [address] [place] [address], [place] [address] Jul, [facility] [address] [id number] [address] [place] [address], [place] [address] Jul, [facility] [address] [id number] [address] [place] [address], [place] [address] Jul, [facility] [address] [id number] [address] [place] [address], [place] [address] Jul, [facility] [address] [id number] [address] [place] [address], [place] [address] Jul, [facility] [address] [id number] [address] [place] [address], [place] [address] Jul, [facility] [address] [id number] [address] [place] [address], [place] [address] Jul, [facility] [address] [id number] [address] [place] [address], [place] [address] Jun, [facility] [address] [id number] [address] [place] [address], [place] [address] Jun, [facility] [address] [id number] [address] [place] [address], [place] [address] Jun, [facility] [address] [id number] [address] [place] [address], [place] [address] Jun, [facility] [address] [id number] [address] [place] [address], [place] [address] Jun, [facility] [address] [id number] [address] [place] [address], [place] [address] Jun, [facility] [address] [id number] [address] [place] [address], [place] [address] May, [facility] [address] [id number] [address] [place] [address], [place] [address] May, [facility] [address] [id number] [address] [place] [address], [place] [address] May, [facility] [address] [id number] [address] [place] [address], [place] [address] May, [facility] [address] [id number] [address] [place] [address], [place] [address] May, [facility] [address] [id number] [address] [place] [address], [place] [address] May, [facility] [address] [id number] [address] [place] [address], [place] [address] May, [facility] [address] [id number] [address] [place] [address], [place] [address] Apr, [facility] [address] [id number] [address] [place] [address], [place] [address] Apr, [facility] [address] [id number] [address] [place] [address], [place] [address] Apr, [facility] [address] [id number] [address] [place] [address], [place] [address] Apr, [facility] [address] [id number] [address] [place] [address], [place] [address] Apr, [facility] [address] [id number] [address] [place] [address], [place] [address] Apr, [facility] [address] [id number] [address] [place] [address], [place] [address] Mar, [facility] [address] [id number] [address] [place] [address], [place] [address] Mar, [facility] [address] [id number] [address] [place] [address], [place] [address] Mar, [facility] [address] [id number] [address] [place] [address], [place] [address] Mar, [facility] [address] [id number] [address] [place] [address], [place] [address] Mar, [facility] [address] [id number] [address] [place] [address], [place] [address] Mar, [facility] [address] [id number] [address] [place] [address], [place] [address] Mar, [facility] [address] [id number] [address] [place] [address], [place] [address] Mar, [facility] [address] [id number] [address] [place] [address], [place] [address] Mar, [facility] [address] [id number] [address] [place] [address], [place] [address] Mar, [facility] [address] [id number] [address] [place] [address], [place] [address] Feb, [facility] [address] [id number] [address] [place] [address], [place] [address] Feb, [facility] [address] [id number] [address] [place] [address], [place] [address] Feb, [facility] [address] [id number] [address] [place] [address], [place] [address] Feb, [facility] [address] [id number] [address] [place] [id number] 14 Feb, 2013 [facility] [address] [id number] [address] [place] [address], [place] [address] 14 Feb, 2013 [facility] [address] [id number] [address] [place] [address], [place] [address] Feb, [facility] [address] [id number] [address] [place] [id number] Feb, [facility] [address] [id number] [address] [place] [id number] 08 Feb, 2013 [facility] [address] [id number] [address] [place] [address], [place] [address] Feb, [facility] [address] [id number] [address] [place] [id number] Jan, [facility] [address] [id number] [address] [place] [address], [place] [address] Jan, [facility] [address] [id number] [address] [place] [address], [place] [address] Jan, [facility] [address] [id number] [address] [place] [address], [place] [id number] Jan, [facility] [address] [id number] [address] [place] [address], [place] [address] Jan, [facility] [address] [id number] [address] [place] [address], [place] [address] Jan, [facility] [address] [id number] [address] [place] [address], [place] [id number] Jan, [facility] [address] [id number] [address] [place] [id number] Jan, [facility] [address] [id number] [address] [place] [address], [place] [id number] Jan, [facility] [address] [id number] [address] [place] [id number] 25 Dec, 2012 [facility] [address] [id number] [address] [place] [address], [place] [id number] 23 Dec, 2012 [facility] [address] [id number] [address] [place] [address], [place] [id number] 21 Dec, 2012 [facility] [address] [id number] [address] [place] [address], [place] [id number] 13 Dec, 2012 [facility] [address] [id number] [address] [place] [address], [place] [id number] Nov, [facility] [address] [id number] [address] [place] [address], [place] [address] Nov, [facility] [address] [id number] [address] [place] [address], [place] [id number] Nov, [facility] [address] [id number] [address] [place] [address], [place] [id number] Nov, [facility] [address] [id number] [address] [place] [address], [place] [id number] Nov, [facility] [address] [id number] [address] [place] [address], [place] [id number] Nov, [facility] [address] [id number] [address] [place] [address], [place] [id number] Oct, [facility] [address] [id number] [address] [place] [address], [place] [id number] Oct, [facility] [address] [id number] [address] [place] [address], [place] [address] Oct, [facility] [address] [id number] [address] [place] [address], [place] [id number] Oct, [facility] [address] [id number] [address] [place] [address], [place] [address] Sep, [facility] [address] [id number] [address] [place] [address], [place] [id number] Sep, [facility] [address] [id number] [address] [place] [address], [place] [address] Sep, [facility] [address] [id number] [address] [place] [address], [place] [id number] Sep, [facility] [address] [id number] [address] [place] [address], [place] [id number] Sep, [facility] [address] [id number] [address] [place] [address], [place] [id number] August, [facility] [address] [id number] [address] [place] [address], [place] [id number] August, [facility] [address] [id number] [address] [place] [address], [place] [id number] Jul, [facility] [address] [id number] [address] [place] [address], [place] [address] Jul, [facility] [address] [id number] [address] [place] [address], [place] [id number] 15 Jul, 2012 [facility] [address] [id number] [address] [place] [address], [place] [id number] Jul, [facility] [address] [id number] [address] [place] [address], [place] [id number] Jul, [facility] [address] [id number] [address] [place] [address], [place] [id number] Jun, [facility] [address] [id number] [address] [place] [address], [place] [id number] Jun, [facility] [address] [id number] [address] [place] [address], [place] [id number] Jun, [facility] [address] [id number] [address] [place] [address], [place] [id number] Jun, [facility] [address] [id number] [address] [place] [address], [place] [id number] Jun, [facility] [address] [id number] [address] [place] [address], [place] [id number] May, [facility] [address] [id number] [address] [place] [address], [place] [id number] May, [facility] [address] [id number] [address] [place] [address], [place] [address] May, [facility] [address] [id number] [address] [place] [address], [place] [address] May, [facility] [address] [id number] [address] [place] [address], [place] [address] May, [facility] [address] [id number] [address] [place] [address], [place] [id number] 14 May, 2012 [facility] [address] [id number] [address] [place] [address], [place] [id number] 13 May, 2012 [facility] [address] [id number] [address] [place] [address], [place] [id number] 08 May, 2012 [facility] [address] [id number] [address] [place] [address], [place] [address] 04 May, 2012 [facility] [address] [id number] [address] [place] [address], [place] [address] Apr, [facility] [address] [id number] [address] [place] [address], [place] [address] Apr, [facility] [address] [id number] [address] [place] [address], [place] [address] Apr, [facility] [address] [id number] [address] [place] [address], [place] [address] Apr, [facility] [address] [id number] [address] [place] [address], [place] [address] Apr, [facility] [address] [id number] [address] [place] [address], [place] [address] Mar, [facility] [address] [id number] [address] [place] [address], [place] [address] Mar, [facility] [address] [id number] [address] [place] [address], [place] [address] Mar, [facility] [address] [id number] [address] [place] [address], [place] [address] Mar, [facility] [address] [id number] [address] [place] [address], [place] [address] Mar, [facility] [address] [id number] [address] [place] [address], [place] [address] Mar, [facility] [address] [id number] [address] [place] [address], [place] [address] 17 Mar, 2012 [facility] [address] [id number] [address] [place] [address], [place] [address] 17 Mar, 2012 [facility] [address] [id number] [address] [place] [address], [place] [address] Mar, [facility] [address] [id number] [address] [place] [address], [place] [address] Mar, [facility] [address] [id number] [address] [place] [address], [place] [address] 30 Feb, 2012 [facility] [address] [id number] [address] [place] [address], [place] [address] 30 Feb, 2012 [facility] [address] [id number] [address] [place] [address], [place] [address] 29 Feb, 2012 [facility] [address] [id number] [address] [place] [address], [place] [address] Feb, [facility] [address] [id number] [address] [place] [address], [place] [address] Feb, [facility] [address] [id number] [address] [place] [address], [place] [address] Feb, [facility] [address] [id number] [address] [place] [address], [place] [address] Feb, [facility] [address] [id number] [address] [place] [address], [place] [address] Feb, [facility] [address] [id number] [address] [place] [address], [place] [address] 16 Feb, 2012 [facility] [address] [id number] [address] [place] [address], [place] [address] 16 Feb, 2012 [facility] [address] [id number] [address] [place] [address], [place] [address] 13 Feb, 2012 [facility] [address] [id number] [address] [place] [address], [place] [address] 13 Feb, 2012 [facility] [address] [id number] [address] [place] [address], [place] [address] 12 Feb, 2012 [facility] [address] [id number] [address] [place] [address], [place] [address] Feb, [facility] [address] [id number] [address] [place] [address], [place] [address] Feb, [facility] [address] [id number] [address] [place] [address], [place] [address] Feb, [facility] [address] [id number] [address] [place] [address], [place] [address] Feb, [facility] [address] [id number] [address] [place] [address], [place] [address] Feb, [facility] [address] [id number] [address] [place] [address], [place] [address] Jan, [facility] [address] [id number] [address] [place] [address], [place] [address] Jan, [facility] [address] [id number] [address] [place] [address], [place] [address] Jan, [facility] [address] [id number] [address] [place] [address], [place] [address] Jan, [facility] [address] [id number] [address] [place] [id number] Jan, [facility] [address] [id number] [address] [place] [address], [place] [address] Jan, [facility] [address] [id number] [address] [place] [id number] Jan, [facility] [address] [id number] [address] [place] [address] Jan, [facility] [address] [id number] [address] [place] [id number] Jan, [facility] [address] [id number] [address] [place] [id number] Jan, [facility] [address] [id number] [address] [place] [address], [place] [address] 24 Dec, 2011 [facility] [address] [id number] [address] [place] [address], [place] [address] Dec, [facility] [address] [id number] [address] [place] [address], [place] [address] Dec, [facility] [address] [id number] [address] [place] [address], [place] [address] Dec, [facility] [address] [id number] [address] [place] [address], [place] [address] Nov, [facility] [address] [id number] [address] [place] [address], [place] [address] Nov, [facility] [address] [id number] [address] [place] [address], [place] [address] Nov, [facility] [address] [id number] [address] [place] [address], [place] [address] Nov, [facility] [address] [id number] [address] [place] [address], [place] [address] Nov, [facility] [address] [id number] [address] [place] [address], [place] [address] Nov, [facility] [address] [id number] [address] [place] [address], [place] [address] Oct, [facility] [address] [id number] [address] [place] [address], [place] [address] Oct, [facility] [address] [id number] [address] [place] [address], [place] [address] Oct, [facility] [address] [id number] [address] [place] [address], [place] [address] Oct, [facility] [address] [id number] [address] [place] [address], [place] [address] Oct, [facility] [address] [id number] [address] [place] [address], [place] [address] 26 Sep, 2011 [facility] [address] [id number] [address] [place] [address], [place] [address] Sep, [facility] [address] [id number] [address] [place] [address], [place] [address] Sep, [facility] [address] [id number] [address] [place] [address], [place] [address] Sep, [facility] [address] [id number] [address] [place] [address], [place] [address] 05 Sep, 2011 [facility] [address] [id number] [address] [place] [address], [place] [address] August, [facility] [address] [id number] [address] [place] [address], [place] [address] August, [facility] [address] [id number] [address] [place] [address], [place] [address] August, [facility] [address] [id number] [address] [place] [address], [place] [address] August, [facility] [address] [id number] [address] [place] [address], [place] [address] Jul, [facility] [address] [id number] [address] [place] [address], [place] [address] 24 Jul, 2011 [facility] [address] [id number] [address] [place] [address], [place] [address] Jul, [facility] [address] [id number] [address] [place] [address], [place] [address] 18 Jul, 2011 [facility] [address] [id number] [address] [place] [address], [place] [address] 18 Jul, 2011 [facility] [address] [id number] [address] [place] [address], [place] [address] 12 Jul, 2011 [facility] [address] [id number] [address] [place] [address], [place] [address] 11 Jul, 2011 [facility] [address] [id number] [address] [place] [address], [place] [address] 10 Jul, 2011 [facility] [address] [id number] [address] [place] [address], [place] [address] Jul, [facility] [address] [id number] [address] [place] [address], [place] [address] 07 Jul, 2011 [facility] [address] [id number] [address] [place] [address], [place] [address] 05 Jul, 2011 [facility] [address] [id number] [address] [place] [address], [place] [address] Jul, [facility] [address] [id number] [address] [place] [address], [place] [address] Jul, [facility] [address] [id number] [address] [place] [address], [place] [address] Jul, [facility] [address] [id number] [address] [place] [address], [place] [address] Jun, [facility] [address] [id number] [address] [place] [address], [place] [address] Jun, [facility] [address] [id number] [address] [place] [address], [place] [address] Jun, [facility] [address] [id number] [address] [place] [address], [place] [address] Jun, [facility] [address] [id number] [address] [place] [address], [place] [address] May, [facility] [address] [id number] [address] [place] [address], [place] [address] May, [facility] [address] [id number] [address] [place] [address], [place] [address] May, [facility] [address] [id number] [address] [place] [address], [place] [address] Apr, [facility] [address] [id number] [address] [place] [address], [place] [address] Apr, [facility] [address] [id number] [address] [place] [address], [place] [address] 13 Apr, 2011 [facility] [address] [id number] [address] [place] [address], [place] [address] Apr, [facility] [address] [id number] [address] [place] [address], [place] [address] 09 Apr, 2011 [facility] [address] [id number] [address] [place] [address], [place] [address] Mar, [facility] [address] [id number] [address] [place] [address], [place] [address] Mar, [facility] [address] [id number] [address] [place] [address], [place] [address] Mar, [facility] [address] [id number] [address] [place] [address], [place] [address] Mar, [facility] [address] [id number] [address] [place] [address], [place] [address] 16 Mar, 2011 [facility] [address] [id number] [address] [place] [address], [place] [address] Mar, [facility] [address] [id number] [address] [place] [address], [place] [address] 05 Mar, 2011 [facility] [address] [id number] [address] [place] [address], [place] [address] Feb, [facility] [address] [id number] [address] [place] [address], [place] [address] Feb, [facility] [address] [id number] [address] [place] [address], [place] [address] Feb, [facility] [address] [id number] [address] [place] [address], [place] [address] Feb, [facility] [address] [id number] [address] [place] [address], [place] [address] 16 Feb, 2011 [facility] [address] [id number] [address] [place] [address], [place] [address] 14 Feb, 2011 [facility] [address] [id number] [address] [place] [address], [place] [address] 10 Feb, 2011 [facility] [address] [id number] [address] [place] [address], [place] [address] 31 Jan, 2011 [facility] [address] [id number] [address] [place] [address], [place] [address] 31 Jan, 2011 [facility] [address] [id number] [address] [place] [address], [place] [address] 31 Jan, 2011 [facility] [address] [id number] [address] [place] [address], [place] [address] 18 Jan, 2011 [facility] [address] [id number] [address] [place] [address], [place] [address] 17 Jan, 2011 [facility] [address] [id number] [address] [place] [address], [place] [address] 17 Jan, 2011 [facility] [address] [id number] [address] [place] [address], [place] [address] 17 Jun, 2010 [facility] [address] [id number] [address] [place] [address], [place] [address] 30 Mar, 2010 [facility] [address] [id number] [address] [place] [address], [place] [address] 20 Mar, 2010 [facility] [address] [id number] [address] [place] [address], [place] [address] 14 Mar, 2010 [facility] [address] [id number] [address] [place] [address], [place] [address] 14 Mar, 2010 [facility] [address] [id number] [address] [place] [address], [place] [address] 13 Mar, 2010 [facility] [address] [id number] [address] [place] [address], [place] [address] 07 Mar, 2010 [facility] [address] [id number] [address] [place] [address], [place] [address] 02 Mar, 2010 [facility] [address] [id number] [address] [place] [address], [place] [address] Mar, [facility] [address] [id number] [address] [place] [address], [place] [address] 30 Feb, 2010 [facility] [address] [id number] [address] [place] [address], [place] [address] Feb, [facility] [address] [id number] [address] [place] [address], [place] [address] Feb, [facility] [address] [id number] [address] [place] [address], [place] [address] 17 Feb, 2010 [facility] [address] [id number] [address] [place] [address], [place] [address] 16 Feb, 2010 [facility] [address] [id number] [address] [place] [address], [place] [address] Feb, [facility] [address] [id number] [address] [place] [address], [place] [address] Feb, [facility] [address] [id number] [address] [place] [address], [place] [address] Feb, [facility] [address] [id number] [address] [place] [address], [place] [address] Jan, [facility] [address] [id number] [address] [place] [address], [place] [address] Jan, [facility] [address] [id number] [address] [place] [address], [place] [address] Jan, [facility] [address] [id number] [address] [place] [address], [place] [address] Jan, [facility] [address] [id number] [address] [place] [address], [place] [address] Mar, [facility] [address] [id number] [address] [place] [address], [place] [address] Mar, [facility] [address] [id number] [address] [place] [address], [place] [address] Mar, [facility] [address] [id number] [address] [place] [id number] Mar, [facility] [address] [id number] [address] [place] [id number] 14 Mar, 2009 [facility] [address] [id number] [address] [place] [id number] Mar, [facility] [address] [id number] [address] [place] [address] Feb, [facility] [address] [id number] [address] [place] [address] Feb, [facility] [address] [id number] [address] [place] [id number] Jan, [facility] [address] [id number] [address] [place] [address] Sep, [facility] [address] [id number] [address] [place] [address] May, IMMUNIZATIONS No Known Immunizations SOCIAL HISTORY [...] surgery Hospitalization History [facility] in [place]- Spontane ous Pneumothorax Hospitalization History [facility]- Colon resection Hospitalization History via [facility] - diarrhea/ couldnt urin ate nov 2017 Hospitalization History pain /hip to foot right side 10/16/19 19
--- OUTSIDE RECORDS SUMMARY | 2019-08-28 09:04 | XMS REPORT ---
Author Author Dixon Lundberg Doctor Organization [facility] Address Unknown Phone Unavailable Care Team Providers Care Ophthalmology Technician Name Role Phone Migration, Doctor Unavailable Unavailable PROBLEMS Type Condition ICD9-CM Code QCO38-XT Code Onset Dates Condition S tatus SNOMED Code Problem Insomnia G47.00 Active 176274664 Problem Anxiety F41.9 Active 65926497 Problem HTN (hypertension) I10 Active 3 9145873 Problem Hyperlipidemia E78.5 Active 63632 004 Problem Thoracic back pain, unspecif ied back pain laterality, unspecified chronicity M54.6 Active 808056844 Problem Vitamin D deficiency E55.9 Active 33048420 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 14469385 Problem Chronic pain G89.29 Active 1225046 1 Problem Schizophrenia, unspecified type F20.9 Active 21991142 Problem Constipation K59.00 Active 3820881 8 Problem Environmental allergies Z91.09 Active 956613705 Problem Primary insomnia F51.01 Active 397 2004 Problem Chronic kidney disease, stage III (moderate) N18.3 Active 416971370 Problem Vision loss H54.7 Active 32888959 1 ALLERGIES No Information ENCOUNTERS Encounter Location Date Diagnosis [place] [id number] [place] [address] Dec, Thoracic back pain, unspecif ied back pain laterality, unspecified chronicity M54.6 [place] [address] [place] [id number] [place] [address] Nov, Thoracic back pain, unspecif ied back pain laterality, unspecified chronicity M54.6 [place] [address] [place] [id number] [place] [address] Nov, Anxiety F41.9 and Thoracic b ack pain, unspecified back pain laterality, unspecified chronicity M54.6 [place] [address] [place] [id number] [place] [id number] Nov, [facility] [address] [id number] [address] [place] [id number] Nov, [facility] [address] [id number] [address] [place] [address] Nov, [facility] [address] [id number] [address] [place] [address] Oct, Thoracic back pain, unspecif ied back pain laterality, unspecified chronicity M54.6 [facility] [address] [id number] [address] [place] [address] Oct, Anxiety F41.9 and Thoracic b ack pain, unspecified back pain laterality, unspecified chronicity M54.6 [facility] [address] [id number] [address] [place] [address] Oct, Schizophrenia, unspecified t ype F20.9 and Acute kidney injury N17.9 [facility] [address] [id number] [address] [place] [address] Oct, [facility] [address] [id number] [address] [place] [address] Oct, [facility] [address] [id number] [address] [place] [address] Oct, Thoracic back pain, unspecif ied back pain laterality, unspecified chronicity M54.6 [facility] [address] [id number] [address] [place] [id number] Oct, [facility] [address] [id number] [address] [place] [address] Oct, [facility] [address] [id number] [address] [place] [address] Sep, Anxiety F41.9 [facility] [address] [id number] [address] [place] [address] Sep, [facility] [address] [id number] [address] [place] [address] Sep, Thoracic back pain, unspecif ied back pain laterality, unspecified chronicity M54.6 [facility] [address] [id number] [address] [place] [address] Sep, [facility] [address] [id number] [address] [place] [address] Sep, [facility] [address] [id number] [address] [place] [id number] Sep, [facility] [address] [id number] [address] [place] [address] Sep, [facility] [address] [id number] [address] [place] [address] Sep, [facility] [address] [id number] [address] [place] [address] Sep, [facility] [address] [facility] [id number] [address] [place] [address] Sep, Chronic pain G89.29 ; Chroni c kidney disease, stage III (moderate) N18.3 ; Hyperlipidemia E78.5 and Insomnia G47.00 [facility] [address] [id number] [address] [place] [address] Sep, Thoracic back pain, unspecif ied back pain laterality, unspecified chronicity M54.6 [facility] [address] [facility] [id number] [address] [place] [address] August, Anxiety F41.9 [facility] [address] [id number] [address] [place] [address] August, Thoracic back pain, unspecif ied back pain laterality, unspecified chronicity M54.6 and Anxiety F41.9 [facility] [address] [id number] [address] [place] [address] August, 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 [facility] [address] [facility] [id number] [address] [place] [address] August, 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 [facility] [address] [id number] [address] [place] [address] August, [facility] [address] [id number] [address] [place] [address] August, [facility] [address] [id number] [address] [place] [address] August, Thoracic back pain, unspecif ied back pain laterality, unspecified chronicity M54.6 [facility] [address] [id number] [address] [place] [address] August, [facility] [address] [id number] [address] [place] [address] August, Anxiety F41.9 and Thoracic b ack pain, unspecified back pain laterality, unspecified chronicity M54.6 [facility] [address] [id number] [address] [place] [address] Jul, [facility] [address] [id number] [address] [place] [address] Jul, Thoracic back pain, unspecif ied back pain laterality, unspecified chronicity M54.6 [facility] [address] [id number] [address] [place] [address] Jun, Anxiety F41.9 and Thoracic b ack pain, unspecified back pain laterality, unspecified chronicity M54.6 [facility] [address] [id number] [address] [place] [address] Jun, Anxiety F41.9 and Thoracic b ack pain, unspecified back pain laterality, unspecified chronicity M54.6 [facility] [address] [id number] [address] [place] [address] Jun, Thoracic back pain, unspecif ied back pain laterality, unspecified chronicity M54.6 [facility] [address] [id number] [address] [place] [address] Jun, Anxiety F41.9 and Thoracic b ack pain, unspecified back pain laterality, unspecified chronicity M54.6 [facility] [address] [id number] [address] [place] [address] May, [facility] [address] [id number] [address] [place] [id number] May, [facility] [address] [id number] [address] [place] [address] May, [facility] [address] [id number] [address] [place] [address] May, Anxiety F41.9 and Encounter for medication monitoring Z51.81 [facility] [address] [id number] [address] [place] [address] May, Anxiety F41.9 and Thoracic b ack pain, unspecified back pain laterality, unspecified chronicity M54.6 [facility] [address] [id number] [address] [place] [address] Apr, Hyperlipidemia 272.4 [facility] [address] [id number] [address] [place] [address] Apr, Chronic pain G89.29 ; Anxiet y F41.9 ; Cervical radiculopathy M54.12 and Vision loss H54.7 [place] [address] [id number] [address] [place] [address] Apr, [facility] [address] [id number] [address] [place] [address] Apr, Anxiety F41.9 and Thoracic b ack pain, unspecified back pain laterality, unspecified chronicity M54.6 [facility] [address] [id number] [address] [place] [address] Mar, [facility] [address] [facility] [id number] [address] [place] [address] Mar, Anxiety F41.9 and Thoracic b ack pain, unspecified back pain laterality, unspecified chronicity M54.6 [facility] [address] [id number] [address] [place] [id number] 14 Feb, 2018 Anxiety F41.9 and Thoracic b ack pain, unspecified back pain laterality, unspecified chronicity M54.6 [facility] [address] [id number] [address] [place] [address] 07 Feb, 2018 Thoracic back pain, unspecif ied back pain laterality, unspecified chronicity M54.6 [facility] [address] [id number] [address] [place] [id number] 29 Jan, 2018 [facility] [address] [id number] [address] [place] [address] 16 Jan, 2018 Anxiety F41.9 and Thoracic b ack pain, unspecified back pain laterality, unspecified chronicity M54.6 [facility] [address] [id number] [address] [place] [address] 19 Dec, 2017 Diarrhea of presumed infecti ous origin R19.7 [facility] [address] [id number] [address] [place] [id number] 19 Dec, 2017 Diarrhea of presumed infecti ous origin R19.7 [facility] [address] [id number] [address] [place] [id number] 18 Dec, 2017 Thoracic back pain, unspecif ied back pain laterality, unspecified chronicity M54.6 [facility] [address] [id number] [address] [place] [address] 17 Dec, 2017 [facility] [address] [id number] [address] [place] [id number] 17 Dec, 2017 Anxiety F41.9 and Thoracic b ack pain, unspecified back pain laterality, unspecified chronicity M54.6 [facility] [address] [id number] [address] [place] [address] 13 Dec, 2017 Diarrhea of presumed infecti ous origin R19.7 [facility] [address] [place] [id number] [address] [place] [address] 13 Dec, 2017 [place] [address] [id number] Dec, Anxiety F41.9 and Thoracic b ack pain, unspecified back pain laterality, unspecified chronicity M54.6 [place] [address] [place] [id number] [place] [address] Dec, Anxiety F41.9 and Thoracic b ack pain, unspecified back pain laterality, unspecified chronicity M54.6 [facility] [employer] [address] [place] [id number] Dec, Diarrhea of presumed infectious origin R 19.7 ; Anxiety F41.9 ; Thoracic back pain, unspecified back pain laterality, unspecified chronicity M54.6 and HTN (hypertension) I10 [place] [address] [address] Dec, Anxiety F41.9 [facility] [employer] [address] [place] [id number] Dec, Anxiety F41.9 ; Diarrhea of presumed inf ectious origin R19.7 ; Generalized abdominal pain R10.84 and Localized edema R60.0 [place] [address] [place] [id number] [place] [address] Nov, [facility] [address] [place] [id number] Nov, Anxiety F41.9 ; Urinary retention R33.9 ; Diarrhea of presumed infectious origin R19.7 ; Weakness R53.1 ; Acute kidney failure, unspecified N17.9 ; Chronic kidney disease, stage III (moderate) N18.3 and Thoracic back pain, unspecified back pain laterality, unspecified chronicity M54.6 [place] [address] [place] [id number] [address] [place] [id number] Oct, Thoracic back pain, unspecif ied back pain laterality, unspecified chronicity M54.6 and Anxiety F41.9 [place] [address] [place] [address] Sep, Thoracic back pain, unspecif ied back pain laterality, unspecified chronicity M54.6 and Anxiety F41.9 [facility] [address] [facility] [id number] [address] [place] [id number] 04 Sep, 2017 Thoracic back pain, unspecif ied back pain laterality, unspecified chronicity M54.6 ; Anxiety F41.9 and Encounter for medication monitoring Z51.81 [facility] [address] [facility] [id number] [address] [place] [address] August, [facility] [address] [facility] [id number] [address] [place] [address] August, Thoracic back pain, unspecif ied back pain laterality, unspecified chronicity M54.6 and Anxiety F41.9 [place] [address] [facility] [id number] [address] [place] [id number] August, Hyperlipidemia E78.5 and HTN (hypertension) I10 [facility] [address] [facility] [id number] [address] [place] [address] August, [facility] [address] [facility] [id number] [address] [place] [address] August, Medicare welcome exam Z00.00 ; Chronic kidney failure N18.9 ; Anxiety F41.9 ; Chronic pain G89.29 ; Insomnia G47.00 ; Hyperlipidemia E78.5 ; HTN (hypertension) I10 and Thoracic back pain, unspecified back pain laterality, unspecified chronicity M54.6 [facility] [address] [facility] [id number] [address] [place] [address] Jul, [facility] [address] [facility] [id number] [address] [place] [address] Jul, [facility] [address] [facility] [id number] [address] [place] [address] Jul, [facility] [address] [facility] [id number] [address] [place] [address] Jul, Anxiety F41.9 [facility] [address] [facility] [id number] [address] [place] [address] Jul, Thoracic back pain, unspecif ied back pain laterality, unspecified chronicity M54.6 and Anxiety F41.9 [place] [address] [facility] [id number] [address] [place] [address] Jun, Thoracic back pain, unspecif ied back pain laterality, unspecified chronicity M54.6 and Anxiety F41.9 [place] [address] [id number] [address] [place] [address] May, Thoracic back pain, unspecif ied back pain laterality, unspecified chronicity M54.6 and Anxiety F41.9 [place] [address] [facility] [id number] [address] [place] [address] Apr, Thoracic back pain, unspecif ied back pain laterality, unspecified chronicity M54.6 and Anxiety F41.9 [place] [address] [facility] [id number] [address] [place] [address] Mar, [place] [address] [facility] [id number] [place] [address] Mar, Thoracic back pain, unspecif ied back pain laterality, unspecified chronicity M54.6 and Anxiety F41.9 [place] [address] [facility] [id number] [address] [place] [address] Mar, Thoracic back pain, unspecif ied back pain laterality, unspecified chronicity M54.6 ; HTN (hypertension) I10 ; Hyperlipidemia E78.5 and Anxiety F41.9 [place] [address] [facility] [id number] [address] [place] [address] Feb, Thoracic back pain, unspecif ied back pain laterality, unspecified chronicity M54.6 and Anxiety F41.9 [place] [address] [facility] [id number] [address] [place] [address] Nov, [place] [address] [facility] [id number] [address] [place] [address] Oct, [facility] [address] [place] [id number] [address] [place] [address] Oct, Thoracic back pain, unspecif ied back pain laterality, unspecified chronicity M54.6 [facility] [address] [place] [id number] [address] [place] [address] Oct, HTN (hypertension) I10 ; Con stipation K59.00 ; Hyperlipidemia E78.5 ; Thoracic back pain, unspecified back pain laterality, unspecified chronicity M54.6 ; Chronic pain G89.29 ; Anxiety F41.9 ; Chronic kidney failure N18.9 ; Environmental allergies Z91.09 ; Vitamin D deficiency E55.9 and Primary insomnia F51.01 [facility] [address] [place] [id number] [address] [place] [address] Sep, Anxiety F41.9 [facility] [address] [place] [id number] [address] [place] [address] Sep, [facility] [address] [place] [id number] [address] [place] [address] August, Anxiety F41.9 [facility] [address] [place] [id number] [address] [place] [address] August, [facility] [address] [facility] [id number] [address] [place] [address] Jul, Anxiety F41.9 [facility] [address] [facility] [id number] [address] [place] [address] Jul, [facility] [address] [facility] [id number] [address] [place] [address] Jun, Anxiety F41.9 [facility] [address] [facility] [id number] [address] [place] [address] Jun, [facility] [address] [place] [id number] [address] [place] [address] May, [facility] [address] [facility] [id number] [address] [place] [address] May, [facility] [address] [address] May, [facility] [address] [place] [id number] [address] [place] [address] Apr, [facility] [address] [place] [id number] [place] [address] Apr, [facility] [address] [place] [id number] [address] [place] [address] Apr, Anxiety F41.9 [facility] [address] [address] Apr, Anxiety F41.9 [facility] [address] [place] [id number] [address] [place] [address] Apr, [facility] [address] [place] [id number] [address] [place] [address] Mar, HTN (hypertension) I10 ; Phillip mor R25.1 ; Hypercholesterolemia E78.0 ; Constipation K59.00 ; Chronic pain G89.29 ; Hyperlipidemia E78.5 ; Insomnia G47.00 ; Anxiety F41.9 and Thoracic back pain, unspecified back pain laterality, unspecified chronicity M54.6 [facility] [address] [place] [id number] [address] [place] [address] Mar, Tremor R25.1 ; HTN (hyperten stas) I10 ; Hypercholesterolemia E78.0 ; Constipation K59.00 ; Chronic pain G89.29 ; Hyperlipidemia E78.5 ; Insomnia G47.00 ; Anxiety F41.9 and Thoracic back pain, unspecified back pain laterality, unspecified chronicity M54.6 [facility] [address] [place] [id number] [address] [place] [address] Mar, [facility] [address] [place] [id number] [address] [place] [address] Mar, [facility] [address] [id number] [address] [place] [address] Feb, [facility] [address] [id number] [address] [place] [address] Jan, [facility] [address] [id number] [address] [place] [address] Jan, [facility] [address] [id number] [address] [place] [address] Dec, [facility] [address] [id number] [address] [place] [address] Nov, [facility] [address] [id number] [address] [place] [address] Nov, [facility] [address] [id number] [address] [place] [address] Oct, Anxiety F41.9 [facility] [address] [id number] [address] [place] [address] Oct, Chronic pain G89.29 [facility] [address] [id number] [address] [place] [id number] 24 Sep, 2015 [facility] [address] [id number] [address] [place] [address] Sep, [facility] [address] [id number] [address] [place] [address] Sep, [facility] [address] [id number] [address] [place] [address] Sep, [facility] [address] [id number] [address] [place] [address] 16 Sep, 2015 Chronic pain syndrome G89.4 [facility] [address] [id number] [address] [place] [address] 15 Sep, 2015 HTN (hypertension) I10 ; Chr onic pain G89.29 ; Hypercholesterolemia E78.0 ; Chronic kidney failure N18.9 ; Constipation, unspecified constipation type K59.00 ; Anxiety F41.9 and Thoracic back pain, unspecified back pain laterality, unspecified chronicity M54.6 [facility] [address] [id number] [address] [place] [address] August, Chronic pain syndrome G89.4 [facility] [address] [facility] [id number] [address] [place] [address] August, Chronic pain syndrome G89.4 [facility] [address] [id number] [address] [place] [address] Jul, Anxiety disorder, unspecifie d F41.9 and Chronic pain syndrome G89.4 [facility] [address] [facility] [id number] [address] [place] [address] Jul, Insomnia, unspecified G47.00 and Chronic pain syndrome G89.4 [facility] [address] [facility] [id number] [address] [place] [address] Jul, Allergic rhinitis J30.9 [facility] [address] [id number] [address] [place] [id number] Jul, Constipation, unspecified K5 9.00 [facility] [address] [facility] [id number] [address] [place] [id number] Jul, [facility] [address] [facility] [id number] [address] [place] [address] Jun, [facility] [address] [id number] [address] [place] [id number] Jun, [facility] [address] [facility] [id number] [address] [place] [id number] Jun, [facility] [address] [facility] [id number] [address] [place] [phone] Jun, [facility] [address] [facility] [id number] [address] [place] [phone] Jun, [facility] [address] [facility] [id number] [address] [place] [phone] Jun, [facility] [address] [facility] [id number] [address] [place] [phone] May, [facility] [address] [facility] [id number] [address] [place] [phone] May, [facility] [address] [facility] [id number] [address] [place] [phone] May, Anxiety F41.9 ; Insomnia G47 .00 ; Hyperlipidemia E78.5 ; Chronic pain G89.29 ; HTN (hypertension) I10 ; Environmental allergies V15.09 and Constipation 564.00 [facility] [address] [facility] [id number] [address] [place] [phone] Apr, [facility] [address] [place] [id number] [address] [place] [phone] Apr, [facility] [address] [place] [id number] [place] [phone] Apr, [facility] [address] [place] [id number] [address] [place] [id number] Mar, [facility] [address] [id number] [address] [place] [address] Mar, [facility] [address] [id number] [address] [place] [address] Mar, [facility] [address] [facility] [id number] [address] [place] [phone] Feb, [facility] [address] [facility] [id number] [address] [place] [address] Feb, [facility] [address] [facility] [id number] [address] [place] [address] Feb, [facility] [address] [facility] [id number] [address] [place] [id number] 15 Jan, 2015 HTN (hypertension) I10 ; Con stipation K59.00 ; Chronic pain G89.29 ; Hyperlipidemia E78.5 ; Hypercholesterolemia E78.0 ; Insomnia G47.00 and Anxiety F41.9 [facility] [address] [address] Jan, [facility] [address] [address] Dec, [facility] [address] [address] Nov, [facility] [address] [address] Oct, Chronic kidney disease, unsp ecified 585.9 ; Chronic pain syndrome 338.4 ; Hyperlipidemia 272.4 and Essential hypertension 401.9 [facility] [address] [address] Oct, Chronic kidney disease 585.9 [facility] [address] [id number] Oct, [facility] [address] [id number] [address] [place] [address] Oct, Chronic kidney disease, unsp ecified 585.9 ; Hypercalcemia 275.42 ; Hyperlipidemia 272.4 ; Essential hypertension 401.9 ; Chronic pain syndrome 338.4 ; Insomnia 780.52 ; Constipation 564.00 ; Environmental allergies V15.09 and Anxiety 300.00 [facility] [address] [id number] [address] [place] [address] Oct, Chronic kidney disease 585.9 [facility] [address] [id number] [address] [place] [address] Oct, [facility] [address] [address] Oct, Chronic kidney disease 585.9 and Hyperlipidemia 272.4 [facility] [address] [id number] [address] [place] [phone] Oct, [facility] [address] [id number] [address] [place] [address], [place] [address] 10 Oct, 2014 [facility] [address] [id number] [address] [place] [address], [place] [address] 18 Sep, 2014 [facility] [address] [id number] [address] [place] [address], [place] [address] 15 Sep, 2014 [facility] [address] [id number] [address] [place] [id number] 15 Sep, 2014 Chronic kidney disease 585.9 and Hyperlipidemia 272.4 [facility] [address] [id number] [address] [place] [address], [place] [address] Sep, [facility] [address] [id number] [address] [place] [address], [place] [address] August, [facility] [address] [id number] [address] [place] [phone] August, [facility] [address] [id number] [address] [place] [id number] 14 Jul, 2014 [facility] [address] [id number] [address] [place] [address], [place] [address] Jul, [facility] [address] [id number] [address] [place] [id number] 20 Jun, 2014 [facility] [address] [id number] [address] [place] [address] Jun, [facility] [address] [id number] [address] [place] [phone] 16 Jun, 2014 [facility] [address] [id number] [address] [place] [address], [place] [address] 16 Jun, 2014 [facility] [address] [id number] [address] [place] [address], [place] [address] 09 Jun, 2014 [facility] [address] [id number] [address] [place] [id number] 09 Jun, 2014 [facility] [address] [id number] [address] [place] [phone] Jun, [facility] [address] [id number] [address] [place] [address], [place] [address] Jun, [facility] [address] [id number] [address] [place] [address], [place] [address] May, [facility] [address] [id number] [address] [place] [address], [place] [address] May, [facility] [address] [id number] [address] [place] [address], [place] [address] May, [facility] [address] [id number] [address] [place] [address], [place] [address] May, [facility] [address] [id number] [address] [place] [address], [place] [address] Apr, [facility] [address] [id number] [address] [place] [address], [place] [address] Apr, [facility] [address] [id number] [address] [place] [address], [place] [address] Apr, [facility] [address] [id number] [address] [place] [address], [place] [address] Apr, [facility] [address] [id number] [address] [place] [address], [place] [address] Apr, [facility] [address] [id number] [address] [place] [address], [place] [address] Apr, [facility] [address] [id number] [address] [place] [address], [place] [address] Apr, [facility] [address] [id number] [address] [place] [address], [place] [address] Apr, [facility] [address] [id number] [address] [place] [address], [place] [address] Apr, [facility] [address] [id number] [address] [place] [address], [place] [address] Apr, [facility] [address] [id number] [address] [place] [address], [place] [address] Apr, [facility] [address] [id number] [address] [place] [address], [place] [address] Mar, [facility] [address] [id number] [address] [place] [address], [place] [address] Mar, [facility] [address] [id number] [address] [place] [address], [place] [address] Feb, [facility] [address] [id number] [address] [place] [address], [place] [address] Feb, [facility] [address] [id number] [address] [place] [address], [place] [address] Feb, [facility] [address] [id number] [address] [place] [address], [place] [address] Feb, [facility] [address] [id number] [address] [place] [address], [place] [address] Feb, [facility] [address] [id number] [address] [place] [address], [place] [address] Feb, [facility] [address] [id number] [address] [place] [address], [place] [address] Feb, [facility] [address] [id number] [address] [place] [address], [place] [address] Feb, [facility] [address] [id number] [address] [place] [address], [place] [address] Feb, [facility] [address] [id number] [address] [place] [address], [place] [address] Feb, [facility] [address] [id number] [address] [place] [address], [place] [address] Jan, [facility] [address] [id number] [address] [place] [address], [place] [address] Jan, [facility] [address] [id number] [address] [place] [address], [place] [address] Jan, [facility] [address] [id number] [address] [place] [address], [place] [address] Jan, [facility] [address] [id number] [address] [place] [address], [place] [address] 24 Jan, 2014 [facility] [address] [id number] [address] [place] [address], [place] [address] Jan, [facility] [address] [id number] [address] [place] [address], [place] [address] Jan, [facility] [address] [id number] [address] [place] [address], [place] [address] 17 Jan, 2014 [facility] [address] [id number] [address] [place] [address], [place] [address] 16 Jan, 2014 [facility] [address] [id number] [address] [place] [address], [place] [address] Jan, [facility] [address] [id number] [address] [place] [address], [place] [address] Jan, [facility] [address] [id number] [address] [place] [address], [place] [address] 26 Dec, 2013 [facility] [address] [id number] [address] [place] [address], [place] [address] 26 Dec, 2013 [facility] [address] [id number] [address] [place] [address], [place] [address] 19 Dec, 2013 [facility] [address] [id number] [address] [place] [id number] 19 Dec, 2013 [facility] [address] [id number] [address] [place] [address], [place] [address] 18 Dec, 2013 [facility] [address] [id number] [address] [place] [address], [place] [address] 18 Dec, 2013 [facility] [address] [id number] [address] [place] [address], [place] [address] 03 Dec, 2013 [facility] [address] [id number] [address] [place] [address], [place] [address] Dec, [facility] [address] [id number] [address] [place] [address], [place] [address] Nov, [facility] [address] [id number] [address] [place] [address], [place] [address] Nov, [facility] [address] [id number] [address] [place] [address], [place] [address] Nov, [facility] [address] [id number] [address] [place] [address], [place] [address] Nov, [facility] [address] [id number] [address] [place] [address], [place] [address] Nov, [facility] [address] [id number] [address] [place] [address], [place] [address] Nov, [facility] [address] [id number] [address] [place] [address], [place] [address] Nov, [facility] [address] [id number] [address] [place] [address], [place] [address] Nov, [facility] [address] [id number] [address] [place] [address], [place] [address] Oct, [facility] [address] [id number] [address] [place] [address], [place] [address] Oct, [facility] [address] [id number] [address] [place] [address], [place] [address] Oct, [facility] [address] [id number] [address] [place] [address], [place] [address] Oct, [facility] [address] [id number] [address] [place] [address], [place] [address] Sep, [facility] [address] [id number] [address] [place] [address], [place] [address] Sep, [facility] [address] [id number] [address] [place] [address], [place] [address] Sep, [facility] [address] [id number] [address] [place] [address], [place] [address] Sep, [facility] [address] [id number] [address] [place] [address] [address] Sep, [facility] [address] [id number] [address] [place] [address], [place] [address] Sep, [facility] [address] [id number] [address] [place] [address], [place] [address] Sep, [facility] [address] [id number] [address] [place] [address], [place] [address] Sep, [facility] [address] [id number] [address] [place] [address], [place] [address] August, [facility] [address] [id number] [address] [place] [address], [place] [address] August, [facility] [address] [id number] [address] [place] [address], [place] [address] August, [facility] [address] [id number] [address] [place] [address], [place] [address] August, [facility] [address] [id number] [address] [place] [address], [place] [address] August, [facility] [address] [id number] [address] [place] [address], [place] [address] August, [facility] [address] [id number] [address] [place] [address], [place] [address] August, [facility] [address] [id number] [address] [place] [address], [place] [address] August, [facility] [address] [id number] [address] [place] [address], [place] [address] August, [facility] [address] [id number] [address] [place] [address], [place] [address] August, [facility] [address] [id number] [address] [place] [address], [place] [address] Jul, [facility] [address] [id number] [address] [place] [address], [place] [address] Jul, [facility] [address] [id number] [address] [place] [address], [place] [address] Jul, [facility] [address] [id number] [address] [place] [address], [place] [address] Jul, [facility] [address] [id number] [address] [place] [address], [place] [address] Jul, [facility] [address] [id number] [address] [place] [address], [place] [address] Jul, [facility] [address] [id number] [address] [place] [address], [place] [address] Jul, [facility] [address] [id number] [address] [place] [address], [place] [address] Jul, [facility] [address] [id number] [address] [place] [address], [place] [address] Jun, [facility] [address] [id number] [address] [place] [address], [place] [address] Jun, [facility] [address] [id number] [address] [place] [address], [place] [address] Jun, [facility] [address] [id number] [address] [place] [address], [place] [address] Jun, [facility] [address] [id number] [address] [place] [address], [place] [address] Jun, [facility] [address] [id number] [address] [place] [address], [place] [address] Jun, [facility] [address] [id number] [address] [place] [address], [place] [address] May, [facility] [address] [id number] [address] [place] [address], [place] [address] May, [facility] [address] [id number] [address] [place] [address], [place] [address] May, [facility] [address] [id number] [address] [place] [address], [place] [address] May, [facility] [address] [id number] [address] [place] [address], [place] [address] May, [facility] [address] [id number] [address] [place] [address], [place] [address] May, [facility] [address] [id number] [address] [place] [address], [place] [address] May, [facility] [address] [id number] [address] [place] [address], [place] [address] Apr, [facility] [address] [id number] [address] [place] [address], [place] [address] Apr, [facility] [address] [id number] [address] [place] [address], [place] [address] Apr, [facility] [address] [id number] [address] [place] [address], [place] [address] Apr, [facility] [address] [id number] [address] [place] [address], [place] [address] Apr, [facility] [address] [id number] [address] [place] [address], [place] [address] Apr, [facility] [address] [id number] [address] [place] [address], [place] [address] Mar, [facility] [address] [id number] [address] [place] [address], [place] [address] Mar, [facility] [address] [id number] [address] [place] [address], [place] [address] Mar, [facility] [address] [id number] [address] [place] [address], [place] [address] Mar, [facility] [address] [id number] [address] [place] [address] Mar, [facility] [address] [id number] [address] [place] [address], [place] [address] Mar, [facility] [address] [id number] [address] [place] [address], [place] [address] 16 Mar, 2013 [facility] [address] [id number] [address] [place] [address], [place] [address] Mar, [facility] [address] [id number] [address] [place] [address], [place] [address] Mar, [facility] [address] [id number] [address] [place] [address], [place] [address] Mar, [facility] [address] [id number] [address] [place] [address], [place] [address] Feb, [facility] [address] [id number] [address] [place] [address], [place] [address] Feb, [facility] [address] [id number] [address] [place] [address], [place] [address] Feb, [facility] [address] [id number] [address] [place] [address], [place] [address] Feb, [facility] [address] [id number] [address] [place] [address], [place] [address] Feb, [facility] [address] [id number] [address] [place] [id number] Feb, [facility] [address] [id number] [address] [place] [address] Feb, [facility] [address] [id number] [address] [place] [id number] Feb, [facility] [address] [id number] [address] [place] [id number] Feb, [facility] [address] [id number] [address] [place] [address], [place] [address] Feb, [facility] [address] [id number] [address] [place] [address], [place] [address] Jan, [facility] [address] [id number] [address] [place] [address], [place] [address] Jan, [facility] [address] [id number] [address] [place] [address], [place] [address] Jan, [facility] [address] [id number] [address] [place] [address], [place] [address] Jan, [facility] [address] [id number] [address] [place] [address], [place] [address] Jan, [facility] [address] [id number] [address] [place] [address], [place] [address] Jan, [facility] [address] [id number] [address] [place] [address], [place] [address] Jan, [facility] [address] [id number] [address] [place] [address], [place] [address] Jan, [facility] [address] [id number] [address] [place] [address], [place] [address] Jan, [facility] [address] [id number] [address] [place] [address], [place] [address] 25 Dec, 2012 [facility] [address] [id number] [address] [place] [address], [place] [address] 23 Dec, 2012 [facility] [address] [id number] [address] [place] [address], [place] [address] 21 Dec, 2012 [facility] [address] [id number] [address] [place] [address], [place] [address] 13 Dec, 2012 [facility] [address] [id number] [address] [place] [address], [place] [address] Nov, [facility] [address] [id number] [address] [place] [address], [place] [address] Nov, [facility] [address] [id number] [address] [place] [address], [place] [address] Nov, [facility] [address] [id number] [address] [place] [address], [place] [address] Nov, [facility] [address] [id number] [address] [place] [address], [place] [address] Nov, [facility] [address] [id number] [address] [place] [address], [place] [address] Nov, [facility] [address] [id number] [address] [place] [address], [place] [address] Oct, [facility] [address] [id number] [address] [place] [address], [place] [address] Oct, [facility] [address] [id number] [address] [place] [address], [place] [address] Oct, [facility] [address] [id number] [address] [place] [address], [place] [address] Oct, [facility] [address] [id number] [address] [place] [address], [place] [address] Sep, [facility] [address] [id number] [address] [place] [address], [place] [address] Sep, [facility] [address] [id number] [address] [place] [address], [place] [address] Sep, [facility] [address] [id number] [address] [place] [address], [place] [address] Sep, [facility] [address] [id number] [address] [place] [address], [place] [address] Sep, [facility] [address] [id number] [address] [place] [address], [place] [address] August, [facility] [address] [id number] [address] [place] [address], [place] [address] August, [facility] [address] [id number] [address] [place] [address], [place] [address] Jul, [facility] [address] [id number] [address] [place] [address], [place] [address] 19 Jul, 2012 [facility] [address] [id number] [address] [place] [address], [place] [address] 15 Jul, 2012 [facility] [address] [id number] [address] [place] [address], [place] [address] 09 Jul, 2012 [facility] [address] [id number] [address] [place] [address], [place] [address] 08 Jul, 2012 [facility] [address] [id number] [address] [place] [address], [place] [address] 26 Jun, 2012 [facility] [address] [id number] [address] [place] [address], [place] [address] Jun, [facility] [address] [id number] [address] [place] [address], [place] [address] 15 Jun, 2012 [facility] [address] [id number] [address] [place] [address], [place] [address] Jun, [facility] [address] [id number] [address] [place] [address], [place] [address] Jun, [facility] [address] [id number] [address] [place] [address], [place] [address] 28 May, 2012 [facility] [address] [id number] [address] [place], [place] [address], [place] [address] 27 May, 2012 [facility] [address] [id number] [address] [place] [address], [place] [address] 25 May, 2012 [facility] [address] [id number] [address] [place] [address], [place] [address] 21 May, 2012 [facility] [address] [id number] [address] [place] [address], [place] [address] 20 May, 2012 [facility] [address] [id number] [address] [place] [address], [place] [address] 14 May, 2012 [facility] [address] [id number] [address] [place] [address], [place] [address] 13 May, 2012 [facility] [address] [id number] [address] [place] [address], [place] [address] 08 May, 2012 [facility] [address] [id number] [address] [place] [address], [place] [address] May, [facility] [address] [id number] [address] [place] [address], [place] [address] Apr, [facility] [address] [id number] [address] [place] [address], [place] [address] Apr, [facility] [address] [id number] [address] [place] [address], [place] [address] Apr, [facility] [address] [id number] [address] [place] [address], [place] [address] Apr, [facility] [address] [id number] [address] [place] [address], [place] [address] Apr, [facility] [address] [id number] [address] [place] [address], [place] [address] Mar, [facility] [address] [id number] [address] [place] [address], [place] [address] Mar, [facility] [address] [id number] [address] [place] [address], [place] [address] Mar, [facility] [address] [id number] [address] [place] [address], [place] [address] Mar, [facility] [address] [id number] [address] [place] [address], [place] [address] Mar, [facility] [address] [id number] [address] [place] [address], [place] [address] Mar, [facility] [address] [id number] [address] [place] [address], [place] [address] Mar, [facility] [address] [id number] [address] [place] [address], [place] [address] Mar, [facility] [address] [id number] [address] [place] [address], [place] [address] 07 Mar, 2012 [facility] [address] [id number] [address] [place] [address], [place] [address] 07 Mar, 2012 [facility] [address] [id number] [address] [place] [address], [place] [address] 30 Feb, 2012 [facility] [address] [id number] [address] [place] [address], [place] [address] 30 Feb, 2012 [facility] [address] [id number] [address] [place] [address], [place] [address] Feb, [facility] [address] [id number] [address] [place] [address], [place] [address] 29 Feb, 2012 [facility] [address] [id number] [address] [place] [address], [place] [address] Feb, [facility] [address] [id number] [address] [place] [address], [place] [address] Feb, [facility] [address] [id number] [address] [place] [address], [place] [address] Feb, [facility] [address] [id number] [address] [place] [address], [place] [address] Feb, [facility] [address] [id number] [address] [place] [address], [place] [address] 16 Feb, 2012 [facility] [address] [id number] [address] [place] [address], [place] [address] 16 Feb, 2012 [facility] [address] [id number] [address] [place] [address], [place] [address] 13 Feb, 2012 [facility] [address] [id number] [address] [place] [address], [place] [address] 13 Feb, 2012 [facility] [address] [id number] [address] [place] [address], [place] [address] 12 Feb, 2012 [facility] [address] [id number] [address] [place] [address], [place] [address] 09 Feb, 2012 [facility] [address] [id number] [address] [place] [address], [place] [address] Feb, [facility] [address] [id number] [address] [place] [address], [place] [address] 08 Feb, 2012 [facility] [address] [id number] [address] [place] [address], [place] [address] Feb, [facility] [address] [id number] [address] [place] [address], [place] [address] Feb, [facility] [address] [id number] [address] [place] [address], [place] [address] Jan, [facility] [address] [id number] [address] [place] [address], [place] [address] Jan, [facility] [address] [id number] [address] [place] [address], [place] [address] Jan, [facility] [address] [id number] [address] [place] [address], [place] [address] Jan, [facility] [address] [id number] [address] [place] [address], [place] [address] Jan, [facility] [address] [id number] [address] [place] [address], [place] [address] Jan, [facility] [address] [id number] [address] [place] [address], [place] [address] Jan, [facility] [address] [id number] [address] [place] [address] Jan, [facility] [address] [id number] [address] [place] [address], [place] [address] Jan, [facility] [address] [id number] [address] [place] [address], [place] [address] Jan, [facility] [address] [id number] [address] [place] [id number] 24 Dec, 2011 [facility] [address] [id number] [address] [place] [address] Dec, [facility] [address] [id number] [address] [place] [address], [place] [address] Dec, [facility] [address] [id number] [address] [place] [address], [place] [address] Dec, [facility] [address] [id number] [address] [place] [address], [place] [address] Nov, [facility] [address] [id number] [address] [place] [address], [place] [address] Nov, [facility] [address] [id number] [address] [place] [address], [place] [address] Nov, [facility] [address] [id number] [address] [place] [address], [place] [address] Nov, [facility] [address] [id number] [address] [place] [address], [place] [address] Nov, [facility] [address] [id number] [address] [place] [address], [place] [address] Nov, [facility] [address] [id number] [address] [place] [address], [place] [address] Oct, [facility] [address] [id number] [address] [place] [address], [place] [address] Oct, [facility] [address] [id number] [address] [place] [address], [place] [address] Oct, [facility] [address] [id number] [address] [place] [address], [place] [address] Oct, [facility] [address] [id number] [address] [place] [address], [place] [address] Oct, [facility] [address] [id number] [address] [place] [address], [place] [address] Sep, [facility] [address] [id number] [address] [place] [address], [place] [address] Sep, [facility] [address] [id number] [address] [place] [address], [place] [address] Sep, [facility] [address] [id number] [address] [place] [address], [place] [address] Sep, [facility] [address] [id number] [address] [place] [address], [place] [address] Sep, [facility] [address] [id number] [address] [place] [address], [place] [address] August, [facility] [address] [id number] [address] [place] [address], [place] [address] August, [facility] [address] [id number] [address] [place] [address], [place] [address] August, [facility] [address] [id number] [address] [place] [address], [place] [address] August, [facility] [address] [id number] [address] [place] [address], [place] [address] Jul, [facility] [address] [id number] [address] [place] [address], [place] [address] 24 Jul, 2011 [facility] [address] [id number] [address] [place] [address], [place] [address] Jul, [facility] [address] [id number] [address] [place] [address], [place] [address] Jul, [facility] [address] [id number] [address] [place] [address], [place] [address] 18 Jul, 2011 [facility] [address] [id number] [address] [place] [address], [place] [address] 12 Jul, 2011 [facility] [address] [id number] [address] [place] [address], [place] [address] 11 Jul, 2011 [facility] [address] [id number] [address] [place] [address], [place] [address] 10 Jul, 2011 [facility] [address] [id number] [address] [place] [address], [place] [address] 09 Jul, 2011 [facility] [address] [id number] [address] [place] [address], [place] [address] 07 Jul, 2011 [facility] [address] [id number] [address] [place] [address], [place] [address] 05 Jul, 2011 [facility] [address] [id number] [address] [place] [address], [place] [address] Jul, [facility] [address] [id number] [address] [place] [address], [place] [address] Jul, [facility] [address] [id number] [address] [place] [address], [place] [address] Jul, [facility] [address] [id number] [address] [place] [address], [place] [address] Jun, [facility] [address] [id number] [address] [place] [address], [place] [address] Jun, [facility] [address] [id number] [address] [place] [address], [place] [address] Jun, [facility] [address] [id number] [address] [place] [address], [place] [address] Jun, [facility] [address] [id number] [address] [place] [address], [place] [address] May, [facility] [address] [id number] [address] [place] [address], [place] [address] May, [facility] [address] [id number] [address] [place] [address], [place] [address] May, [facility] [address] [id number] [address] [place] [address], [place] [address] Apr, [facility] [address] [id number] [address] [place] [address], [place] [address] 18 Apr, 2011 [facility] [address] [id number] [address] [place] [address], [place] [address] Apr, [facility] [address] [id number] [address] [place] [address], [place] [address] 11 Apr, 2011 [facility] [address] [id number] [address] [place] [address], [place] [address] Apr, [facility] [address] [id number] [address] [place] [address], [place] [address] Mar, [facility] [address] [id number] [address] [place] [address], [place] [address] Mar, [facility] [address] [id number] [address] [place] [address], [place] [address] Mar, [facility] [address] [id number] [address] [place] [address], [place] [address] Mar, [facility] [address] [id number] [address] [place] [address], [place] [address] Mar, [facility] [address] [id number] [address] [place] [address], [place] [address] Mar, [facility] [address] [id number] [address] [place] [address], [place] [address] Mar, [facility] [address] [id number] [address] [place] [address], [place] [address] 29 Feb, 2011 [facility] [address] [id number] [address] [place] [address], [place] [address] Feb, [facility] [address] [id number] [address] [place] [address], [place] [address] Feb, [facility] [address] [id number] [address] [place] [address], [place] [address] Feb, [facility] [address] [id number] [address] [place] [address], [place] [address] 16 Feb, 2011 [facility] [address] [id number] [address] [place] [address], [place] [address] 14 Feb, 2011 [facility] [address] [id number] [address] [place] [address], [place] [address] 10 Feb, 2011 [facility] [address] [id number] [address] [place] [address], [place] [address] 31 Jan, 2011 [facility] [address] [id number] [address] [place] [address], [place] [address] 31 Jan, 2011 [facility] [address] [id number] [address] [place] [address], [place] [address] 31 Jan, 2011 [facility] [address] [id number] [address] [place] [address], [place] [address] 18 Jan, 2011 [facility] [address] [id number] [address] [place] [address], [place] [address] 17 Jan, 2011 [facility] [address] [id number] [address] [place] [address], [place] [address] 17 Jan, 2011 [facility] [address] [id number] [address] [place] [address], [place] [address] Jun, [facility] [address] [id number] [address] [place] [address], [place] [address] 30 Mar, 2010 [facility] [address] [id number] [address] [place] [address], [place] [address] 20 Mar, 2010 [facility] [address] [id number] [address] [place] [address], [place] [address] 14 Mar, 2010 [facility] [address] [id number] [address] [place] [address], [place] [address] 14 Mar, 2010 [facility] [address] [id number] [address] [place] [address], [place] [address] 13 Mar, 2010 [facility] [address] [id number] [address] [place] [address], [place] [address] 07 Mar, 2010 [facility] [address] [id number] [address] [place] [address], [place] [address] 02 Mar, 2010 [facility] [address] [id number] [address] [place] [address], [place] [address] Mar, [facility] [address] [id number] [address] [place] [address], [place] [address] 30 Feb, 2010 [facility] [address] [id number] [address] [place] [address], [place] [address] 29 Feb, 2010 [facility] [address] [id number] [address] [place] [address], [place] [address] Feb, [facility] [address] [id number] [address] [place] [address], [place] [address] Feb, [facility] [address] [id number] [address] [place] [address], [place] [address] 16 Feb, 2010 [facility] [address] [id number] [address] [place] [address], [place] [address] Feb, [facility] [address] [id number] [address] [place] [address], [place] [address] Feb, [facility] [address] [id number] [address] [place] [address], [place] [address] Feb, [facility] [address] [id number] [address] [place] [address], [place] [address] Jan, [facility] [address] [id number] [address] [place] [address], [place] [address] Jan, [facility] [address] [id number] [address] [place] [address], [place] [address] Jan, [facility] [address] [id number] [address] [place] [address] Jan, [facility] [address] [id number] [address] [place] [id number] 29 Mar, 2009 [facility] [address] [id number] [address] [place] [address], [place] [address] Mar, [facility] [address] [id number] [address] [place] [address], [place] [address] Mar, [facility] [address] [id number] [address] [place] [address], [place] [address] Mar, [facility] [address] [id number] [address] [place] [address] 14 Mar, 2009 [facility] [address] [id number] [address] [place] [address] 10 Mar, 2009 [facility] [address] [id number] [address] [place] [address] Feb, [facility] [address] [facility] [id number] [address] [place] [address] Feb, [facility] [address] [facility] [id number] [address] [place] [address] Jan, [facility] [address] [facility] [id number] [address] [place] [id number] Sep, [facility] [address] [facility] [id number] [address] [place] [address] May, IMMUNIZATIONS No Known Immunizations SOCIAL HISTORY [...] Surgical History Left ear surgery Hospitalization History [facility] [place]- Spontane ous Pneumothorax Hospitalization History [facility]- Colon resection Hospitalization History [facility] - diarrhea/ couldnt urin ate nov 2017 Hospitalization History pain /hip to foot right side 10/16/19 19
--- OUTSIDE RECORDS SUMMARY | 2019-08-28 09:05 | XMS REPORT ---
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 Name Role Phone Migration, Doctor Unavailable Unavailable PROBLEMS Type Condition ICD9-CM Code ZZJ05-EV Code Onset Dates Condition S tatus SNOMED Code Problem Insomnia G47.00 Active 633957665 Problem Anxiety F41.9 Active 84547517 Problem HTN (hypertension) I10 Active 3 6200103 Problem Hyperlipidemia E78.5 Active 82875 004 Problem Thoracic back pain, unspecif ied back pain laterality, unspecified chronicity M54.6 Active 928184484 Problem Vitamin D deficiency E55.9 Active 66115228 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 87334869 Problem Chronic pain G89.29 Active 6678847 1 Problem Schizophrenia, unspecified type F20.9 Active 07138269 Problem Constipation K59.00 Active 2046966 8 Problem Environmental allergies Z91.09 Active 182953726 Problem Primary insomnia F51.01 Active 397 2004 Problem Chronic kidney disease, stage III (moderate) N18.3 Active 806461166 Problem Vision loss H54.7 Active 37228847 1 ALLERGIES No Information ENCOUNTERS Encounter Location Date Diagnosis [place] [id number] [place] [phone] Dec, Thoracic back pain, unspecif ied back pain laterality, unspecified chronicity M54.6 [place] [address] [place] [id number] [place] [id number] Nov, Thoracic back pain, unspecif ied back pain laterality, unspecified chronicity M54.6 [place] [address] [place] [id number] [address] [place] [phone] Nov, Anxiety F41.9 and Thoracic b ack pain, unspecified back pain laterality, unspecified chronicity M54.6 [place] [address] [place] [id number] [address] [place] [phone] Nov, [facility] [address] [id number] [address] [place] [id number] Nov, [facility] [address] [id number] [address] [place] [phone] Nov, [facility] [address] [id number] [address] [place] [id number] Oct, Thoracic back pain, unspecif ied back pain laterality, unspecified chronicity M54.6 [facility] [address] [id number] [address] [place] [id number] Oct, Anxiety F41.9 and Thoracic b ack pain, unspecified back pain laterality, unspecified chronicity M54.6 [facility] [address] [id number] [address] [place] [phone] Oct, Schizophrenia, unspecified t ype F20.9 and Acute kidney injury N17.9 [facility] [address] [id number] [address] [place] [phone] Oct, [facility] [address] [id number] [address] [place] [phone] Oct, [facility] [address] [id number] [address] [place] [id number] Oct, Thoracic back pain, unspecif ied back pain laterality, unspecified chronicity M54.6 [facility] [address] [id number] [address] [place] [phone] Oct, [facility] [address] [id number] [address] [place] [phone] Oct, [facility] [address] [id number] [address] [place] [phone] Sep, Anxiety F41.9 [facility] [address] [id number] [address] [place] [id number] Sep, [facility] [address] [id number] [address] [place] [id number] Sep, Thoracic back pain, unspecif ied back pain laterality, unspecified chronicity M54.6 [facility] [address] [id number] [address] [place] [phone] Sep, [facility] [address] [id number] [address] [place] [phone] Sep, [facility] [address] [id number] [address] [place] [phone] Sep, [facility] [address] [id number] [address] [place] [id number] Sep, [facility] [address] [id number] [address] [place] [id number] Sep, [facility] [address] [id number] [address] [place] [id number] Sep, [facility] [address] [facility] [id number] [address] [place] [id number] Sep, Chronic pain G89.29 ; Chroni c kidney disease, stage III (moderate) N18.3 ; Hyperlipidemia E78.5 and Insomnia G47.00 [facility] [address] [id number] [address] [place] [id number] Sep, Thoracic back pain, unspecif ied back pain laterality, unspecified chronicity M54.6 [facility] [address] [facility] [id number] [address] [place] [phone] August, Anxiety F41.9 [facility] [address] [id number] [address] [place] [id number] August, Thoracic back pain, unspecif ied back pain laterality, unspecified chronicity M54.6 and Anxiety F41.9 [facility] [address] [id number] [address] [place] [phone] August, 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 [facility] [address] [facility] [id number] [address] [place] [phone] August, 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 [facility] [address] [id number] [address] [place] [id number] August, [facility] [address] [id number] [address] [place] [id number] August, [facility] [address] [id number] [address] [place] [phone] August, Thoracic back pain, unspecif ied back pain laterality, unspecified chronicity M54.6 [facility] [address] [id number] [address] [place] [phone] August, [facility] [address] [id number] [address] [place] [id number] August, Anxiety F41.9 and Thoracic b ack pain, unspecified back pain laterality, unspecified chronicity M54.6 [facility] [address] [id number] [address] [place] [phone] Jul, [facility] [address] [id number] [address] [place] [phone] Jul, Thoracic back pain, unspecif ied back pain laterality, unspecified chronicity M54.6 [facility] [address] [id number] [address] [place] [id number] Jun, Anxiety F41.9 and Thoracic b ack pain, unspecified back pain laterality, unspecified chronicity M54.6 [facility] [address] [id number] [address] [place] [phone] Jun, Anxiety F41.9 and Thoracic b ack pain, unspecified back pain laterality, unspecified chronicity M54.6 [facility] [address] [id number] [address] [place] [phone] Jun, Thoracic back pain, unspecif ied back pain laterality, unspecified chronicity M54.6 [facility] [address] [id number] [address] [place] [phone] Jun, Anxiety F41.9 and Thoracic b ack pain, unspecified back pain laterality, unspecified chronicity M54.6 [facility] [address] [id number] [address] [place] [phone] May, [facility] [address] [id number] [address] [place] [phone] May, [facility] [address] [id number] [address] [place] [phone] May, [facility] [address] [id number] [address] [place] [id number] May, Anxiety F41.9 and Encounter for medication monitoring Z51.81 [facility] [address] [id number] [address] [place] [id number] May, Anxiety F41.9 and Thoracic b ack pain, unspecified back pain laterality, unspecified chronicity M54.6 [facility] [address] [id number] [address] [place] [id number] Apr, Hyperlipidemia 272.4 [facility] [address] [id number] [address] [place] [phone] Apr, Chronic pain G89.29 ; Anxiet y F41.9 ; Cervical radiculopathy M54.12 and Vision loss H54.7 [place] [address] [id number] [address] [place] [phone] Apr, [facility] [address] [id number] [address] [place] [phone] Apr, Anxiety F41.9 and Thoracic b ack pain, unspecified back pain laterality, unspecified chronicity M54.6 [facility] [address] [id number] [address] [place] [id number] Mar, [facility] [address] [facility] [id number] [address] [place] [id number] Mar, Anxiety F41.9 and Thoracic b ack pain, unspecified back pain laterality, unspecified chronicity M54.6 [facility] [address] [id number] [address] [place] [phone] 14 Feb, 2018 Anxiety F41.9 and Thoracic b ack pain, unspecified back pain laterality, unspecified chronicity M54.6 [facility] [address] [id number] [address] [place] [id number] 07 Feb, 2018 Thoracic back pain, unspecif ied back pain laterality, unspecified chronicity M54.6 [facility] [address] [id number] [address] [place] [phone] 29 Jan, 2018 [facility] [address] [id number] [address] [place] [phone] 16 Jan, 2018 Anxiety F41.9 and Thoracic b ack pain, unspecified back pain laterality, unspecified chronicity M54.6 [facility] [address] [id number] [address] [place] [id number] 19 Dec, 2017 Diarrhea of presumed infecti ous origin R19.7 [facility] [address] [id number] [address] [place] [id number] 19 Dec, 2017 Diarrhea of presumed infecti ous origin R19.7 [facility] [address] [id number] [address] [place] [id number] 18 Dec, 2017 Thoracic back pain, unspecif ied back pain laterality, unspecified chronicity M54.6 [facility] [address] [id number] [address] [place] [phone] 17 Dec, 2017 [facility] [address] [id number] [address] [place] [id number] 17 Dec, 2017 Anxiety F41.9 and Thoracic b ack pain, unspecified back pain laterality, unspecified chronicity M54.6 [facility] [address] [id number] [address] [place] [id number] 13 Dec, 2017 Diarrhea of presumed infecti ous origin R19.7 [facility] [address] [place] [id number] [address] [place] [id number] 13 Dec, 2017 [place] [address] [id number] Dec, Anxiety F41.9 and Thoracic b ack pain, unspecified back pain laterality, unspecified chronicity M54.6 [place] [address] [place] [id number] [address] [place] [id number] Dec, Anxiety F41.9 and Thoracic b ack pain, unspecified back pain laterality, unspecified chronicity M54.6 [facility] [address] [place] [id number] Dec, Diarrhea of presumed infectious origin R 19.7 ; Anxiety F41.9 ; Thoracic back pain, unspecified back pain laterality, unspecified chronicity M54.6 and HTN (hypertension) I10 [place] [address] [address] Dec, Anxiety F41.9 [facility] [address] [place] [id number] Dec, Anxiety F41.9 ; Diarrhea of presumed inf ectious origin R19.7 ; Generalized abdominal pain R10.84 and Localized edema R60.0 [place] [address] [place] [id number] [address] [place] [phone] Nov, [facility] [address] [place] [id number] Nov, Anxiety F41.9 ; Urinary retention R33.9 ; Diarrhea of presumed infectious origin R19.7 ; Weakness R53.1 ; Acute kidney failure, unspecified N17.9 ; Chronic kidney disease, stage III (moderate) N18.3 and Thoracic back pain, unspecified back pain laterality, unspecified chronicity M54.6 [place] [address] [place] [id number] [address] [place] [id number] Oct, Thoracic back pain, unspecif ied back pain laterality, unspecified chronicity M54.6 and Anxiety F41.9 [place] [address] [place] [address] Sep, Thoracic back pain, unspecif ied back pain laterality, unspecified chronicity M54.6 and Anxiety F41.9 [facility] [address] [facility] [id number] [address] [place] [phone] 04 Sep, 2017 Thoracic back pain, unspecif ied back pain laterality, unspecified chronicity M54.6 ; Anxiety F41.9 and Encounter for medication monitoring Z51.81 [facility] [address] [facility] [id number] [address] [place] [phone] August, [facility] [address] [facility] [id number] [address] [place] [id number] August, Thoracic back pain, unspecif ied back pain laterality, unspecified chronicity M54.6 and Anxiety F41.9 [place] [id number] [facility] [id number] [address] [place] [phone] August, Hyperlipidemia E78.5 and HTN (hypertension) I10 [facility] [address] [facility] [id number] [address] [place] [id number] August, [facility] [address] [facility] [id number] [address] [place] [id number] August, Medicare welcome exam Z00.00 ; Chronic kidney failure N18.9 ; Anxiety F41.9 ; Chronic pain G89.29 ; Insomnia G47.00 ; Hyperlipidemia E78.5 ; HTN (hypertension) I10 and Thoracic back pain, unspecified back pain laterality, unspecified chronicity M54.6 [facility] [address] [facility] [id number] [address] [place] [id number] Jul, [facility] [address] [facility] [id number] [address] [place] [id number] Jul, [facility] [address] [facility] [id number] [address] [place] [phone] Jul, [facility] [address] [facility] [id number] [address] [place] [phone] Jul, Anxiety F41.9 [facility] [address] [facility] [id number] [address] [place] [phone] Jul, Thoracic back pain, unspecif ied back pain laterality, unspecified chronicity M54.6 and Anxiety F41.9 [place] [address] [facility] [id number] [address] [place] [phone] Jun, Thoracic back pain, unspecif ied back pain laterality, unspecified chronicity M54.6 and Anxiety F41.9 [place] [address] [id number] [address] [place] [phone] May, Thoracic back pain, unspecif ied back pain laterality, unspecified chronicity M54.6 and Anxiety F41.9 [place] [address] [facility] [id number] [address] [place] [id number] Apr, Thoracic back pain, unspecif ied back pain laterality, unspecified chronicity M54.6 and Anxiety F41.9 [place] [address] [facility] [id number] [address] [place] [phone] Mar, [place] [address] [facility] [id number] [place] [phone] Mar, Thoracic back pain, unspecif ied back pain laterality, unspecified chronicity M54.6 and Anxiety F41.9 [place] [address] [facility] [id number] [address] [place] [id number] Mar, Thoracic back pain, unspecif ied back pain laterality, unspecified chronicity M54.6 ; HTN (hypertension) I10 ; Hyperlipidemia E78.5 and Anxiety F41.9 [place] [address] [facility] [id number] [address] [place] [phone] Feb, Thoracic back pain, unspecif ied back pain laterality, unspecified chronicity M54.6 and Anxiety F41.9 [place] [address] [facility] [id number] [address] [place] [phone] Nov, [place] [address] [facility] [id number] [address] [place] [phone] Oct, [facility] [address] [place] [id number] [address] [place] [phone] Oct, Thoracic back pain, unspecif ied back pain laterality, unspecified chronicity M54.6 [facility] [address] [place] [id number] [address] [place] [phone] Oct, HTN (hypertension) I10 ; Con stipation K59.00 ; Hyperlipidemia E78.5 ; Thoracic back pain, unspecified back pain laterality, unspecified chronicity M54.6 ; Chronic pain G89.29 ; Anxiety F41.9 ; Chronic kidney failure N18.9 ; Environmental allergies Z91.09 ; Vitamin D deficiency E55.9 and Primary insomnia F51.01 [facility] [address] [place] [id number] [address] [place] [phone] Sep, Anxiety F41.9 [facility] [address] [place] [id number] [address] [place] [phone] Sep, [facility] [address] [place] [id number] [address] [place] [id number] August, Anxiety F41.9 [facility] [address] [place] [id number] [address] [place] [id number] August, [facility] [address] [facility] [id number] [address] [place] [phone] Jul, Anxiety F41.9 [facility] [address] [facility] [id number] [address] [place] [phone] Jul, [facility] [address] [facility] [id number] [address] [place] [id number] Jun, Anxiety F41.9 [facility] [address] [facility] [id number] [address] [place] [phone] Jun, [facility] [address] [place] [id number] [address] [place] [phone] May, [facility] [address] [facility] [id number] [address] [place] [phone] May, [facility] [address] [address] May, [facility] [address] [place] [id number] [address] [place] [phone] Apr, [facility] [address] [place] [id number] [place] [address] Apr, [facility] [address] [place] [id number] [address] [place] [address] Apr, Anxiety F41.9 [facility] [address] [address] Apr, Anxiety F41.9 [facility] [address] [place] [id number] [address] [place] [address] Apr, [facility] [address] [place] [id number] [address] [place] [address] Mar, HTN (hypertension) I10 ; Phillip mor R25.1 ; Hypercholesterolemia E78.0 ; Constipation K59.00 ; Chronic pain G89.29 ; Hyperlipidemia E78.5 ; Insomnia G47.00 ; Anxiety F41.9 and Thoracic back pain, unspecified back pain laterality, unspecified chronicity M54.6 [facility] [address] [place] [id number] [address] [place] [id number] Mar, Tremor R25.1 ; HTN (hyperten stas) I10 ; Hypercholesterolemia E78.0 ; Constipation K59.00 ; Chronic pain G89.29 ; Hyperlipidemia E78.5 ; Insomnia G47.00 ; Anxiety F41.9 and Thoracic back pain, unspecified back pain laterality, unspecified chronicity M54.6 [facility] [address] [place] [id number] [address] [place] [phone] Mar, [facility] [address] [place] [id number] [address] [place] [id number] Mar, [facility] [address] [id number] [address] [place] [phone] Feb, [facility] [address] [id number] [address] [place] [phone] Jan, [facility] [address] [id number] [address] [place] [id number] Jan, [facility] [address] [id number] [address] [place] [phone] Dec, [facility] [address] [id number] [address] [place] [phone] Nov, [facility] [address] [id number] [address] [place] [phone] Nov, [facility] [address] [id number] [address] [place] [phone] Oct, Anxiety F41.9 [facility] [address] [id number] [address] [place] [id number] Oct, Chronic pain G89.29 [facility] [address] [id number] [address] [place] [phone] 24 Sep, 2015 [facility] [address] [id number] [address] [place] [phone] Sep, [facility] [address] [id number] [address] [place] [phone] Sep, [facility] [address] [id number] [address] [place] [phone] Sep, [facility] [address] [id number] [address] [place] [phone] 16 Sep, 2015 Chronic pain syndrome G89.4 [facility] [address] [id number] [address] [place] [id number] 15 Sep, 2015 HTN (hypertension) I10 ; Chr onic pain G89.29 ; Hypercholesterolemia E78.0 ; Chronic kidney failure N18.9 ; Constipation, unspecified constipation type K59.00 ; Anxiety F41.9 and Thoracic back pain, unspecified back pain laterality, unspecified chronicity M54.6 [facility] [address] [id number] [address] [place] [id number] August, Chronic pain syndrome G89.4 [facility] [address] [facility] [id number] [address] [place] [phone] August, Chronic pain syndrome G89.4 [facility] [address] [id number] [address] [place] [id number] Jul, Anxiety disorder, unspecifie d F41.9 and Chronic pain syndrome G89.4 [facility] [address] [facility] [id number] [address] [place] [id number] Jul, Insomnia, unspecified G47.00 and Chronic pain syndrome G89.4 [facility] [address] [facility] [id number] [address] [place] [phone] Jul, Allergic rhinitis J30.9 [facility] [address] [id number] [address] [place] [phone] Jul, Constipation, unspecified K5 9.00 [facility] [address] [facility] [id number] [address] [place] [phone] Jul, [facility] [address] [facility] [id number] [address] [place] [phone] Jun, [facility] [address] [id number] [address] [place] [id number] Jun, [facility] [address] [facility] [id number] [address] [place] [phone] Jun, [facility] [address] [facility] [place] [id number] [address] [place] [phone] Jun, [facility] [address] [facility] [place] [id number] [address] [place] [phone] Jun, [facility] [address] [facility] [place] [id number] [address] [place] [phone] Jun, [facility] [address] [facility] [place] [id number] [address] [place] [phone] May, [facility] [address] [facility] [place] [id number] [address] [place] [phone] May, [facility] [address] [facility] [place] [id number] [address] [place] [address] May, Anxiety F41.9 ; Insomnia G47 .00 ; Hyperlipidemia E78.5 ; Chronic pain G89.29 ; HTN (hypertension) I10 ; Environmental allergies V15.09 and Constipation 564.00 [facility] [address] [facility] [place] [id number] [address] [place] [phone] Apr, [facility] [address] [place] [id number] [address] [place] [phone] Apr, [facility] [address] [place] [id number] [place] [phone] Apr, [facility] [address] [place] [id number] [address] [place] [phone] Mar, [facility] [address] [place] [id number] [address] [place] [phone] Mar, [facility] [address] [place] [id number] [address] [place] [phone] Mar, [facility] [address] [facility] [place] [id number] [address] [place] [phone] Feb, [facility] [address] [facility] [place] [id number] [address] [place] [phone] Feb, [facility] [address] [facility] [place] [id number] [address] [place] [phone] Feb, [facility] [address] [facility] [place] [id number] [address] [place] [id number] 15 Jan, 2015 HTN (hypertension) I10 ; Con stipation K59.00 ; Chronic pain G89.29 ; Hyperlipidemia E78.5 ; Hypercholesterolemia E78.0 ; Insomnia G47.00 and Anxiety F41.9 [facility] [address] [id number] Jan, [facility] [address] [phone] Dec, [facility] [address] [phone] Nov, [facility] [address] [id number] Oct, Chronic kidney disease, unsp ecified 585.9 ; Chronic pain syndrome 338.4 ; Hyperlipidemia 272.4 and Essential hypertension 401.9 [facility] [address] [id number] Oct, Chronic kidney disease 585.9 [facility] [address] [phone] Oct, [facility] [address] [place] [id number] [address] [place] [phone] Oct, Chronic kidney disease, unsp ecified 585.9 ; Hypercalcemia 275.42 ; Hyperlipidemia 272.4 ; Essential hypertension 401.9 ; Chronic pain syndrome 338.4 ; Insomnia 780.52 ; Constipation 564.00 ; Environmental allergies V15.09 and Anxiety 300.00 [facility] [address] [place] [id number] [address] [place] [phone] Oct, Chronic kidney disease 585.9 [facility] [address] [place] [id number] [address] [place] [phone] Oct, [facility] [address] [id number] Oct, Chronic kidney disease 585.9 and Hyperlipidemia 272.4 [facility] [address] [place] [id number] [address] [place] [phone] Oct, [facility] [address] [id number] [address] [place] [address], [place] [address] 10 Oct, 2014 [facility] [address] [id number] [address] [place] [address], [place] [address] 18 Sep, 2014 [facility] [address] [id number] [address] [place] [address], [place] [address] 15 Sep, 2014 [facility] [address] [id number] [address] [place] [phone] 15 Sep, 2014 Chronic kidney disease 585.9 and Hyperlipidemia 272.4 [facility] [address] [id number] [address] [place] [address], [place] [address] Sep, [facility] [address] [id number] [address] [place] [address], [place] [address] August, [facility] [address] [id number] [address] [place] [phone] August, [facility] [address] [id number] [address] [place] [id number] 14 Jul, 2014 [facility] [address] [id number] [address] [place] [address], [place] [address] Jul, [facility] [address] [id number] [address] [place] [phone] 20 Jun, 2014 [facility] [address] [id number] [address] [place] [phone] Jun, [facility] [address] [id number] [address] [place] [phone] 16 Jun, 2014 [facility] [address] [id number] [address] [place] [address], [place] [address] 16 Jun, 2014 [facility] [address] [id number] [address] [place] [address], [place] [address] 09 Jun, 2014 [facility] [address] [id number] [address] [place] [id number] 09 Jun, 2014 [facility] [address] [id number] [address] [place] [phone] Jun, [facility] [address] [id number] [address] [place] [address], [place] [address] Jun, [facility] [address] [id number] [address] [place] [address], [place] [address] May, [facility] [address] [id number] [address] [place] [address], [place] [address] May, [facility] [address] [id number] [address] [place] [address], [place] [address] May, [facility] [address] [id number] [address] [place] [address], [place] [address] May, [facility] [address] [id number] [address] [place] [address], [place] [address] Apr, [facility] [address] [id number] [address] [place] [address], [place] [address] Apr, [facility] [address] [id number] [address] [place] [address], [place] [address] Apr, [facility] [address] [id number] [address] [place] [address], [place] [address] Apr, [facility] [address] [id number] [address] [place] [address], [place] [address] Apr, [facility] [address] [id number] [address] [place] [address], [place] [address] Apr, [facility] [address] [id number] [address] [place] [address], [place] [address] Apr, [facility] [address] [id number] [address] [place] [address], [place] [address] Apr, [facility] [address] [id number] [address] [place] [address], [place] [address] Apr, [facility] [address] [id number] [address] [place] [address], [place] [address] Apr, [facility] [address] [id number] [address] [place] [address], [place] [address] Apr, [facility] [address] [id number] [address] [place] [address], [place] [address] Mar, [facility] [address] [id number] [address] [place] [address], [place] [address] Mar, [facility] [address] [id number] [address] [place] [address], [place] [address] Feb, [facility] [address] [id number] [address] [place] [address], [place] [address] Feb, [facility] [address] [id number] [address] [place] [address], [place] [address] Feb, [facility] [address] [id number] [address] [place] [address], [place] [address] Feb, [facility] [address] [id number] [address] [place] [address], [place] [address] Feb, [facility] [address] [id number] [address] [place] [address], [place] [address] Feb, [facility] [address] [id number] [address] [place] [address], [place] [address] Feb, [facility] [address] [id number] [address] [place] [address], [place] [address] Feb, [facility] [address] [id number] [address] [place] [address], [place] [address] Feb, [facility] [address] [id number] [address] [place] [address], [place] [address] Feb, [facility] [address] [id number] [address] [place] [address], [place] [address] Jan, [facility] [address] [id number] [address] [place] [address], [place] [address] Jan, [facility] [address] [id number] [address] [place] [address], [place] [address] Jan, [facility] [address] [id number] [address] [place] [address], [place] [address] Jan, [facility] [address] [id number] [address] [place] [address], [place] [address] 24 Jan, 2014 [facility] [address] [id number] [address] [place] [address], [place] [address] Jan, [facility] [address] [id number] [address] [place] [address], [place] [address] Jan, [facility] [address] [id number] [address] [place] [address], [place] [address] 17 Jan, 2014 [facility] [address] [id number] [address] [place] [address], [place] [address] 16 Jan, 2014 [facility] [address] [id number] [address] [place] [address], [place] [address] Jan, [facility] [address] [id number] [address] [place] [address], [place] [address] Jan, [facility] [address] [id number] [address] [place] [address], [place] [address] 26 Dec, 2013 [facility] [address] [id number] [address] [place] [address], [place] [address] 26 Dec, 2013 [facility] [address] [id number] [address] [place] [address], [place] [address] 19 Dec, 2013 [facility] [address] [id number] [address] [place] [id number] 19 Dec, 2013 [facility] [address] [id number] [address] [place] [address], [place] [address] 18 Dec, 2013 [facility] [address] [id number] [address] [place] [address], [place] [address] 18 Dec, 2013 [facility] [address] [id number] [address] [place] [address], [place] [address] 03 Dec, 2013 [facility] [address] [id number] [address] [place] [address], [place] [address] Dec, [facility] [address] [id number] [address] [place] [address], [place] [address] Nov, [facility] [address] [id number] [address] [place] [address], [place] [address] Nov, [facility] [address] [id number] [address] [place] [address], [place] [address] Nov, [facility] [address] [id number] [address] [place] [address], [place] [address] Nov, [facility] [address] [id number] [address] [place] [address], [place] [address] Nov, [facility] [address] [id number] [address] [place] [address], [place] [address] Nov, [facility] [address] [id number] [address] [place] [address], [place] [address] Nov, [facility] [address] [id number] [address] [place] [address], [place] [address] Nov, [facility] [address] [id number] [address] [place] [address], [place] [address] Oct, [facility] [address] [id number] [address] [place] [address], [place] [address] Oct, [facility] [address] [id number] [address] [place] [address], [place] [address] Oct, [facility] [address] [id number] [address] [place] [address], [place] [address] Oct, [facility] [address] [id number] [address] [place] [address], [place] [address] Sep, [facility] [address] [id number] [address] [place] [address], [place] [address] Sep, [facility] [address] [id number] [address] [place] [address], [place] [address] Sep, [facility] [address] [id number] [address] [place] [address], [place] [address] Sep, [facility] [address] [id number] [address] [place] [address], [place] [address] Sep, [facility] [address] [id number] [address] [place] [address], [place] [address] Sep, [facility] [address] [id number] [address] [place] [address], [place] [address] Sep, [facility] [address] [id number] [address] [place] [address], [place] [address] Sep, [facility] [address] [id number] [address] [place] [address], [place] [address] August, [facility] [address] [id number] [address] [place] [address], [place] [address] August, [facility] [address] [id number] [address] [place] [address], [place] [address] August, [facility] [address] [id number] [address] [place] [address], [place] [address] August, [facility] [address] [id number] [address] [place] [address], [place] [address] August, [facility] [address] [id number] [address] [place] [address], [place] [address] August, [facility] [address] [id number] [address] [place] [address], [place] [address] August, [facility] [address] [id number] [address] [place] [address], [place] [address] August, [facility] [address] [id number] [address] [place] [address], [place] [address] August, [facility] [address] [id number] [address] [place] [address], [place] [address] August, [facility] [address] [id number] [address] [place] [address], [place] [address] Jul, [facility] [address] [id number] [address] [place] [address], [place] [address] Jul, [facility] [address] [id number] [address] [place] [address], [place] [address] Jul, [facility] [address] [id number] [address] [place] [address], [place] [address] Jul, [facility] [address] [id number] [address] [place] [address], [place] [address] Jul, [facility] [address] [id number] [address] [place] [address], [place] [address] Jul, [facility] [address] [id number] [address] [place] [address], [place] [address] Jul, [facility] [address] [id number] [address] [place] [address], [place] [address] Jul, [facility] [address] [id number] [address] [place] [address], [place] [address] Jun, [facility] [address] [id number] [address] [place] [address], [place] [address] Jun, [facility] [address] [id number] [address] [place] [address], [place] [address] Jun, [facility] [address] [id number] [address] [place] [address], [place] [address] Jun, [facility] [address] [id number] [address] [place] [address], [place] [address] Jun, [facility] [address] [id number] [address] [place] [address], [place] [address] Jun, [facility] [address] [id number] [address] [place] [address], [place] [address] May, [facility] [address] [id number] [address] [place] [address], [place] [address] May, [facility] [address] [id number] [address] [place] [address], [place] [address] May, [facility] [address] [id number] [address] [place] [address], [place] [address] May, [facility] [address] [id number] [address] [place] [address], [place] [address] May, [facility] [address] [id number] [address] [place] [address], [place] [address] May, [facility] [address] [id number] [address] [place] [address], [place] [address] May, [facility] [address] [id number] [address] [place] [address], [place] [address] Apr, [facility] [address] [id number] [address] [place] [address], [place] [address] Apr, [facility] [address] [id number] [address] [place] [address], [place] [address] Apr, [facility] [address] [id number] [address] [place] [address], [place] [address] Apr, [facility] [address] [id number] [address] [place] [address], [place] [address] Apr, [facility] [address] [id number] [address] [place] [address], [place] [address] Apr, [facility] [address] [id number] [address] [place] [address], [place] [address] Mar, [facility] [address] [id number] [address] [place] [address], [place] [address] Mar, [facility] [address] [id number] [address] [place] [address], [place] [address] Mar, [facility] [address] [id number] [address] [place] [address], [place] [address] Mar, [facility] [address] [id number] [address] [place] [address] Mar, [facility] [address] [id number] [address] [place] [address], [place] [address] Mar, [facility] [address] [id number] [address] [place] [address], [place] [id number] 16 Mar, 2013 [facility] [address] [id number] [address] [place] [address], [place] [id number] Mar, [facility] [address] [id number] [address] [place] [address], [place] [address] Mar, [facility] [address] [id number] [address] [place] [address], [place] [address] Mar, [facility] [address] [id number] [address] [place] [address], [place] [address] Feb, [facility] [address] [id number] [address] [place] [address], [place] [address] Feb, [facility] [address] [id number] [address] [place] [address], [place] [address] Feb, [facility] [address] [id number] [address] [place] [address], [place] [id number] Feb, [facility] [address] [id number] [address] [place] [address], [place] [address] Feb, [facility] [address] [id number] [address] [place] [id number] Feb, [facility] [address] [id number] [address] [place] [id number] Feb, [facility] [address] [id number] [address] [place] [id number] Feb, [facility] [address] [id number] [address] [place] [id number] Feb, [facility] [address] [id number] [address] [place] [address], [place] [address] Feb, [facility] [address] [id number] [address] [place] [address], [place] [address] Jan, [facility] [address] [id number] [address] [place] [address], [place] [id number] Jan, [facility] [address] [id number] [address] [place] [address], [place] [address] Jan, [facility] [address] [id number] [address] [place] [address], [place] [address] Jan, [facility] [address] [id number] [address] [place] [address], [place] [address] Jan, [facility] [address] [id number] [address] [place] [address], [place] [address] Jan, [facility] [address] [id number] [address] [place] [address], [place] [address] Jan, [facility] [address] [id number] [address] [place] [address], [place] [id number] Jan, [facility] [address] [id number] [address] [place] [address], [place] [address] Jan, [facility] [address] [id number] [address] [place] [address], [place] [id number] 25 Dec, 2012 [facility] [address] [id number] [address] [place] [address], [place] [address] 23 Dec, 2012 [facility] [address] [id number] [address] [place] [address], [place] [address] 21 Dec, 2012 [facility] [address] [id number] [address] [place] [address], [place] [id number] 13 Dec, 2012 [facility] [address] [id number] [address] [place] [address], [place] [address] Nov, [facility] [address] [id number] [address] [place] [address], [place] [id number] Nov, [facility] [address] [id number] [address] [place] [address], [place] [address] Nov, [facility] [address] [id number] [address] [place] [address], [place] [address] Nov, [facility] [address] [id number] [address] [place] [address], [place] [address] Nov, [facility] [address] [id number] [address] [place] [address], [place] [address] Nov, [facility] [address] [id number] [address] [place] [address], [place] [address] Oct, [facility] [address] [id number] [address] [place] [address], [place] [address] Oct, [facility] [address] [id number] [address] [place] [address], [place] [address] Oct, [facility] [address] [id number] [address] [place] [address], [place] [address] Oct, [facility] [address] [id number] [address] [place] [address], [place] [id number] Sep, [facility] [facility] [address] [id number] [address] [place] [address], [place] [address] Sep, [facility] [address] [id number] [address] [place] [address], [place] [address] Sep, [facility] [address] [id number] [address] [place] [address], [place] [address] Sep, [facility] [address] [id number] [address] [place] [address], [place] [address] Sep, [facility] [address] [id number] [address] [place] [address], [place] [address] August, [facility] [address] [id number] [address] [place] [address], [place] [address] August, [facility] [address] [id number] [address] [place] [address], [place] [address] Jul, [facility] [address] [id number] [address] [place] [address], [place] [address] 19 Jul, 2012 [facility] [address] [id number] [address] [place] [address], [place] [address] 15 Jul, 2012 [facility] [address] [id number] [address] [place] [address], [place] [address] 09 Jul, 2012 [facility] [address] [id number] [address] [place] [address], [place] [address] 08 Jul, 2012 [facility] [address] [id number] [address] [place] [address], [place] [address] 26 Jun, 2012 [facility] [address] [id number] [address] [place] [address], [place] [address] Jun, [facility] [address] [id number] [address] [place] [address], [place] [address] 15 Jun, 2012 [facility] [address] [id number] [address] [place] [address], [place] [address] Jun, [facility] [address] [id number] [address] [place] [address], [place] [address] Jun, [facility] [address] [id number] [address] [place] [address], [place] [address] 28 May, 2012 [facility] [address] [id number] [address] [place] [address], [place] [address] 27 May, 2012 [facility] [address] [id number] [address] [place] [address], [place] [address] 25 May, 2012 [facility] [address] [id number] [address] [place] [address], [place] [address] 21 May, 2012 [facility] [address] [id number] [address] [place] [address], [place] [address] 20 May, 2012 [facility] [address] [id number] [address] [place] [address], [place] [address] 14 May, 2012 [facility] [address] [id number] [address] [place] [address], [place] [address] 13 May, 2012 [facility] [address] [id number] [address] [place] [address], [place] [address] 08 May, 2012 [facility] [address] [id number] [address] [place] [address], [place] [address] May, [facility] [address] [id number] [address] [place] [address], [place] [address] Apr, [facility] [address] [id number] [address] [place] [address], [place] [address] Apr, [facility] [address] [id number] [address] [place] [address], [place] [address] Apr, [facility] [address] [id number] [address] [place] [address], [place] [address] Apr, [facility] [address] [id number] [address] [place] [address], [place] [address] Apr, [facility] [address] [id number] [address] [place] [address], [place] [address] Mar, [facility] [address] [id number] [address] [place] [address], [place] [address] Mar, [facility] [address] [id number] [address] [place] [address], [place] [address] Mar, [facility] [address] [id number] [address] [place] [address], [place] [address] Mar, [facility] [address] [id number] [address] [place] [address], [place] [address] Mar, [facility] [address] [id number] [address] [place] [address], [place] [address] Mar, [facility] [address] [id number] [address] [place] [address], [place] [address] Mar, [facility] [address] [id number] [address] [place] [address], [place] [address] Mar, [facility] [address] [id number] [address] [place] [address], [place] [address] 07 Mar, 2012 [facility] [address] [id number] [address] [place] [address], [place] [address] 07 Mar, 2012 [facility] [address] [id number] [address] [place] [address], [place] [address] 30 Feb, 2012 [facility] [address] [id number] [address] [place] [address], [place] [address] 30 Feb, 2012 [facility] [address] [id number] [address] [place] [address], [place] [address] Feb, [facility] [address] [id number] [address] [place] [address], [place] [address] 29 Feb, 2012 [facility] [address] [id number] [address] [place] [address], [place] [address] Feb, [facility] [address] [id number] [address] [place] [address], [place] [address] Feb, [facility] [address] [id number] [address] [place] [address], [place] [address] Feb, [facility] [address] [id number] [address] [place] [address], [place] [address] Feb, [facility] [address] [id number] [address] [place] [address], [place] [address] 16 Feb, 2012 [facility] [address] [id number] [address] [place] [address], [place] [address] 16 Feb, 2012 [facility] [address] [id number] [address] [place] [address], [place] [address] 13 Feb, 2012 [facility] [address] [id number] [address] [place] [address], [place] [address] 13 Feb, 2012 [facility] [address] [id number] [address] [place] [address], [place] [address] 12 Feb, 2012 [facility] [address] [id number] [address] [place] [address], [place] [address] 09 Feb, 2012 [facility] [address] [id number] [address] [place] [address], [place] [address] Feb, [facility] [address] [id number] [address] [place] [address], [place] [address] 08 Feb, 2012 [facility] [address] [id number] [address] [place] [address], [place] [address] Feb, [facility] [address] [id number] [address] [place] [address], [place] [address] Feb, [facility] [address] [id number] [address] [place] [address], [place] [address] Jan, [facility] [address] [id number] [address] [place] [address], [place] [address] Jan, [facility] [address] [id number] [address] [place] [address], [place] [address] Jan, [facility] [address] [id number] [address] [place] [address], [place] [address] Jan, [facility] [address] [id number] [address] [place] [address], [place] [address] Jan, [facility] [address] [id number] [address] [place] [address], [place] [address] Jan, [facility] [address] [id number] [address] [place] [address], [place] [address] Jan, [facility] [address] [id number] [address] [place] [address] Jan, [facility] [address] [id number] [address] [place] [address], [place] [address] Jan, [facility] [address] [id number] [address] [place] [address], [place] [address] Jan, [facility] [address] [id number] [address] [place] [id number] 24 Dec, 2011 [facility] [address] [id number] [address] [place] [address] Dec, [facility] [address] [id number] [address] [place] [address], [place] [address] Dec, [facility] [address] [id number] [address] [place] [address], [place] [address] Dec, [facility] [address] [id number] [address] [place] [address], [place] [address] Nov, [facility] [address] [id number] [address] [place] [address], [place] [address] Nov, [facility] [address] [id number] [address] [place] [address], [place] [address] Nov, [facility] [address] [id number] [address] [place] [address], [place] [address] Nov, [facility] [address] [id number] [address] [place] [address], [place] [address] Nov, [facility] [address] [id number] [address] [place] [address], [place] [address] Nov, [facility] [address] [id number] [address] [place] [address], [place] [address] Oct, [facility] [address] [id number] [address] [place] [address], [place] [address] Oct, [facility] [address] [id number] [address] [place] [address], [place] [address] Oct, [facility] [address] [id number] [address] [place] [address], [place] [address] Oct, [facility] [address] [id number] [address] [place] [address], [place] [address] Oct, [facility] [address] [id number] [address] [place] [address], [place] [address] Sep, [facility] [address] [id number] [address] [place] [address], [place] [address] Sep, [facility] [address] [id number] [address] [place] [address], [place] [address] Sep, [facility] [address] [id number] [address] [place] [address], [place] [address] Sep, [facility] [address] [id number] [address] [place] [address], [place] [address] Sep, [facility] [address] [id number] [address] [place] [address], [place] [address] August, [facility] [address] [id number] [address] [place] [address], [place] [address] August, [facility] [address] [id number] [address] [place] [address], [place] [address] August, [facility] [address] [id number] [address] [place] [address], [place] [address] August, [facility] [address] [id number] [address] [place] [address], [place] [address] Jul, [facility] [address] [id number] [address] [place] [address], [place] [address] 24 Jul, 2011 [facility] [address] [id number] [address] [place] [address], [place] [address] Jul, [facility] [address] [id number] [address] [place] [address], [place] [address] Jul, [facility] [address] [id number] [address] [place] [address], [place] [address] 18 Jul, 2011 [facility] [address] [id number] [address] [place] [address], [place] [address] 12 Jul, 2011 [facility] [address] [id number] [address] [place] [address], [place] [address] 11 Jul, 2011 [facility] [address] [id number] [address] [place] [address], [place] [address] 10 Jul, 2011 [facility] [address] [id number] [address] [place] [address], [place] [address] 09 Jul, 2011 [facility] [address] [id number] [address] [place] [address], [place] [address] 07 Jul, 2011 [facility] [address] [id number] [address] [place] [address], [place] [address] 05 Jul, 2011 [facility] [address] [id number] [address] [place] [address], [place] [address] Jul, [facility] [address] [id number] [address] [place] [address], [place] [address] Jul, [facility] [address] [id number] [address] [place] [address], [place] [address] Jul, [facility] [address] [id number] [address] [place] [address], [place] [address] Jun, [facility] [address] [id number] [address] [place] [address], [place] [address] Jun, [facility] [address] [id number] [address] [place] [address], [place] [address] Jun, [facility] [address] [id number] [address] [place] [address], [place] [address] Jun, [facility] [address] [id number] [address] [place] [address], [place] [address] May, [facility] [address] [id number] [address] [place] [address], [place] [address] May, [facility] [address] [id number] [address] [place] [address], [place] [address] May, [facility] [address] [id number] [address] [place] [address], [place] [address] Apr, [facility] [address] [id number] [address] [place] [address], [place] [address] 18 Apr, 2011 [facility] [address] [id number] [address] [place] [address], [place] [address] Apr, [facility] [address] [id number] [address] [place] [address], [place] [address] 11 Apr, 2011 [facility] [address] [id number] [address] [place] [address], [place] [address] Apr, [facility] [address] [id number] [address] [place] [address], [place] [address] Mar, [facility] [address] [id number] [address] [place] [address], [place] [address] Mar, [facility] [address] [id number] [address] [place] [address], [place] [address] Mar, [facility] [address] [id number] [address] [place] [address], [place] [address] Mar, [facility] [address] [id number] [address] [place] [address], [place] [address] Mar, [facility] [address] [id number] [address] [place] [address], [place] [address] Mar, [facility] [address] [id number] [address] [place] [address], [place] [address] Mar, [facility] [address] [id number] [address] [place] [address], [place] [address] 29 Feb, 2011 [facility] [address] [id number] [address] [place] [address], [place] [address] Feb, [facility] [address] [id number] [address] [place] [address], [place] [address] Feb, [facility] [address] [id number] [address] [place] [address], [place] [address] Feb, [facility] [address] [id number] [address] [place] [address], [place] [address] 16 Feb, 2011 [facility] [address] [id number] [address] [place] [address], [place] [address] 14 Feb, 2011 [facility] [address] [id number] [address] [place] [address], [place] [address] 10 Feb, 2011 [facility] [address] [id number] [address] [place] [address], [place] [address] 31 Jan, 2011 [facility] [address] [id number] [address] [place] [address], [place] [address] 31 Jan, 2011 [facility] [address] [id number] [address] [place] [address], [place] [address] 31 Jan, 2011 [facility] [address] [id number] [address] [place] [address], [place] [address] 18 Jan, 2011 [facility] [address] [id number] [address] [place] [address], [place] [address] 17 Jan, 2011 [facility] [address] [id number] [address] [place] [address], [place] [address] 17 Jan, 2011 [facility] [address] [id number] [address] [place] [address], [place] [address] Jun, [facility] [address] [id number] [address] [place] [address], [place] [address] 30 Mar, 2010 [facility] [address] [id number] [address] [place] [address], [place] [address] 20 Mar, 2010 [facility] [address] [id number] [address] [place] [address], [place] [address] 14 Mar, 2010 [facility] [address] [id number] [address] [place] [address], [place] [address] 14 Mar, 2010 [facility] [address] [id number] [address] [place] [address], [place] [address] 13 Mar, 2010 [facility] [address] [id number] [address] [place] [address], [place] [address] 07 Mar, 2010 [facility] [address] [id number] [address] [place] [address], [place] [address] 02 Mar, 2010 [facility] [address] [id number] [address] [place] [address], [place] [address] Mar, [facility] [address] [id number] [address] [place] [address], [place] [id number] 30 Feb, 2010 [facility] [address] [id number] [address] [place] [address], [place] [id number] 29 Feb, 2010 [facility] [address] [id number] [address] [place] [address], [place] [id number] Feb, [facility] [address] [id number] [address] [place] [address], [place] [address] Feb, [facility] [address] [id number] [address] [place] [address], [place] [id number] 16 Feb, 2010 [facility] [address] [id number] [address] [place] [address], [place] [address] Feb, [facility] [address] [id number] [address] [place] [address], [place] [id number] Feb, [facility] [address] [id number] [address] [place] [address], [place] [address] Feb, [facility] [address] [id number] [address] [place] [address], [place] [id number] Jan, [facility] [address] [id number] [address] [place] [address], [place] [address] Jan, [facility] [address] [id number] [address] [place] [address], [place] [address] Jan, [facility] [address] [id number] [address] [place] [phone] Jan, [facility] [address] [id number] [address] [place] [id number] 29 Mar, 2009 [facility] [address] [id number] [address] [place] [address], [place] [address] Mar, [facility] [address] [id number] [address] [place] [address], [place] [address] Mar, [facility] [address] [id number] [address] [place] [address], [place] [address] Mar, [facility] [address] [id number] [address] [place] [id number] 14 Mar, 2009 [facility] [address] [id number] [address] [place] [id number] 10 Mar, 2009 [facility] [address] [id number] [address] [place] [phone] Feb, [facility] [address] [facility] [id number] [address] [place] [phone] Feb, [facility] [address] [facility] [id number] [address] [place] [phone] Jan, [facility] [address] [facility] [id number] [address] [place] [id number] Sep, [facility] [address] [facility] [id number] [address] [place] [phone] May, IMMUNIZATIONS No Known Immunizations SOCIAL HISTORY [...] surgery Hospitalization History [facility] [place]- Spontane ous Pneumothorax Hospitalization History [facility]- Colon resection Hospitalization History [facility] - diarrhea/ couldnt urin ate nov 2017 Hospitalization History pain /hip to foot right side 10/16/19 19
--- OUTSIDE RECORDS SUMMARY | 2019-08-28 09:05 | XMS REPORT ---
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 Name Role Phone AGUSTÍN PRATER Unavailable PROBLEMS Type Condition ICD9-CM Code RCN78-HL Code Onset Dates Condition S tatus SNOMED Code Problem Insomnia G47.00 Active 314126267 Problem Anxiety F41.9 Active 68591261 Problem HTN (hypertension) I10 Active 3 0612334 Problem Hyperlipidemia E78.5 Active 89325 004 Problem Thoracic back pain, unspecif ied back pain laterality, unspecified chronicity M54.6 Active 759799759 Problem Vitamin D deficiency E55.9 Active 07989919 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 50827401 Problem Chronic pain G89.29 Active 0726741 1 Problem Schizophrenia, unspecified type F20.9 Active 10994787 Problem Constipation K59.00 Active 7955388 8 Problem Environmental allergies Z91.09 Active 638923780 Problem Primary insomnia F51.01 Active 397 2004 Problem Chronic kidney disease, stage III (moderate) N18.3 Active 881313174 Problem Vision loss H54.7 Active 04326130 1 ALLERGIES No Information ENCOUNTERS Encounter Location Date Diagnosis [facility] [address] [id number] [address] [place] [address] Dec, Thoracic back pain, unspecif ied back pain laterality, unspecified chronicity M54.6 [facility] [address] [facility] [id number] [address] [place] [address] Nov, Thoracic back pain, unspecif ied back pain laterality, unspecified chronicity M54.6 [facility] [address] [facility] [id number] [address] [place] [address] Nov, Anxiety F41.9 and Thoracic b ack pain, unspecified back pain laterality, unspecified chronicity M54.6 [facility] [address] [id number] [address] [place] [phone] Nov, [facility] [address] [id number] [address] [place] [address] Nov, [facility] [address] [id number] [address] [place] [address] Nov, [facility] [address] [id number] [address] [place] [address] Oct, Thoracic back pain, unspecif ied back pain laterality, unspecified chronicity M54.6 [facility] [address] [id number] [address] [place] [address] Oct, Anxiety F41.9 and Thoracic b ack pain, unspecified back pain laterality, unspecified chronicity M54.6 [facility] [address] [id number] [address] [place] [address] Oct, Schizophrenia, unspecified t ype F20.9 and Acute kidney injury N17.9 [facility] [address] [id number] [address] [place] [address] Oct, [facility] [address] [id number] [address] [place] [address] Oct, [facility] [address] [id number] [address] [place] [address] Oct, Thoracic back pain, unspecif ied back pain laterality, unspecified chronicity M54.6 [facility] [address] [id number] [address] [place] [address] Oct, [facility] [address] [id number] [address] [place] [address] Oct, [facility] [address] [id number] [address] [place] [address] Sep, Anxiety F41.9 [facility] [address] [id number] [address] [place] [address] Sep, [facility] [address] [id number] [address] [place] [address] Sep, Thoracic back pain, unspecif ied back pain laterality, unspecified chronicity M54.6 [facility] [address] [id number] [address] [place] [address] Sep, [facility] [address] [id number] [address] [place] [address] Sep, [facility] [address] [id number] [address] [place] [address] Sep, [facility] [address] [id number] [address] [place] [address] Sep, [facility] [address] [id number] [address] [place] [address] Sep, [facility] [address] [facility] [id number] [address] [place] [address] Sep, [facility] [address] [id number] [address] [place] [address] Sep, Chronic pain G89.29 ; Chroni c kidney disease, stage III (moderate) N18.3 ; Hyperlipidemia E78.5 and Insomnia G47.00 [facility] [address] [id number] [address] [place] [address] Sep, Thoracic back pain, unspecif ied back pain laterality, unspecified chronicity M54.6 [facility] [address] [id number] [address] [place] [address] August, Anxiety F41.9 [facility] [address] [facility] [id number] [address] [place] [address] August, Thoracic back pain, unspecif ied back pain laterality, unspecified chronicity M54.6 and Anxiety F41.9 [facility] [address] [facility] [id number] [address] [place] [address] August, 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 [facility] [address] [id number] [address] [place] [address] August, 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 [facility] [address] [id number] [address] [place] [address] August, [facility] [address] [id number] [address] [place] [address] August, [facility] [address] [id number] [address] [place] [address] August, Thoracic back pain, unspecif ied back pain laterality, unspecified chronicity M54.6 [facility] [address] [id number] [address] [place] [address] August, [facility] [address] [id number] [address] [place] [address] August, Anxiety F41.9 and Thoracic b ack pain, unspecified back pain laterality, unspecified chronicity M54.6 [facility] [address] [id number] [address] [place] [address] Jul, [facility] [address] [id number] [address] [place] [address] Jul, Thoracic back pain, unspecif ied back pain laterality, unspecified chronicity M54.6 [facility] [address] [id number] [address] [place] [address] Jun, Anxiety F41.9 and Thoracic b ack pain, unspecified back pain laterality, unspecified chronicity M54.6 [facility] [address] [id number] [address] [place] [address] Jun, Anxiety F41.9 and Thoracic b ack pain, unspecified back pain laterality, unspecified chronicity M54.6 [facility] [address] [id number] [address] [place] [address] Jun, Thoracic back pain, unspecif ied back pain laterality, unspecified chronicity M54.6 [facility] [address] [id number] [address] [place] [address] Jun, Anxiety F41.9 and Thoracic b ack pain, unspecified back pain laterality, unspecified chronicity M54.6 [facility] [address] [id number] [address] [place] [address] May, [facility] [address] [id number] [address] [place] [address] May, [facility] [address] [id number] [address] [place] [address] May, [facility] [address] [id number] [address] [place] [address] May, Anxiety F41.9 and Encounter for medication monitoring Z51.81 [facility] [address] [id number] [address] [place] [address] May, Anxiety F41.9 and Thoracic b ack pain, unspecified back pain laterality, unspecified chronicity M54.6 [facility] [address] [id number] [address] [place] [address] Apr, Hyperlipidemia 272.4 [facility] [address] [id number] [address] [place] [address] Apr, Chronic pain G89.29 ; Anxiet y F41.9 ; Cervical radiculopathy M54.12 and Vision loss H54.7 [facility] [address] [id number] [address] [place] [address] Apr, [facility] [address] [id number] [address] [place] [address] Apr, Anxiety F41.9 and Thoracic b ack pain, unspecified back pain laterality, unspecified chronicity M54.6 [facility] [address] [id number] [address] [place] [address] Mar, [facility] [address] [id number] [address] [place] [address] Mar, Anxiety F41.9 and Thoracic b ack pain, unspecified back pain laterality, unspecified chronicity M54.6 [facility] [address] [id number] [address] [place] [address] 14 Feb, 2018 Anxiety F41.9 and Thoracic b ack pain, unspecified back pain laterality, unspecified chronicity M54.6 [facility] [address] [id number] [address] [place] [address] 07 Feb, 2018 Thoracic back pain, unspecif ied back pain laterality, unspecified chronicity M54.6 [facility] [address] [id number] [address] [place] [address] 29 Jan, 2018 [facility] [address] [id number] [address] [place] [id number] 16 Jan, 2018 Anxiety F41.9 and Thoracic b ack pain, unspecified back pain laterality, unspecified chronicity M54.6 [facility] [address] [id number] [address] [place] [address] 19 Dec, 2017 Diarrhea of presumed infecti ous origin R19.7 [facility] [address] [id number] [address] [place] [address] 19 Dec, 2017 Diarrhea of presumed infecti ous origin R19.7 [facility] [address] [id number] [address] [place] [address] 18 Dec, 2017 Thoracic back pain, unspecif ied back pain laterality, unspecified chronicity M54.6 [facility] [address] [id number] [address] [place] [address] 17 Dec, 2017 [facility] [address] [id number] [address] [place] [address] 17 Dec, 2017 Anxiety F41.9 and Thoracic b ack pain, unspecified back pain laterality, unspecified chronicity M54.6 [facility] [address] [id number] [address] [place] [address] Dec, Diarrhea of presumed infecti ous origin R19.7 [id number] [place] [address] Dec, [address] [address] [address] [id number] [address] [place] [address] Dec, Anxiety F41.9 and Thoracic b ack pain, unspecified back pain laterality, unspecified chronicity M54.6 [address] [address] Dec, Anxiety F41.9 and Thoracic b ack pain, unspecified back pain laterality, unspecified chronicity M54.6 [facility] [employer] [address] [place] [id number] Dec, Diarrhea of presumed infectious origin R 19.7 ; Anxiety F41.9 ; Thoracic back pain, unspecified back pain laterality, unspecified chronicity M54.6 and HTN (hypertension) I10 [address] [address] [id number] [place] [address] Dec, Anxiety F41.9 [facility] [employer] [address] [place] [id number] Dec, Anxiety F41.9 ; Diarrhea of presumed inf ectious origin R19.7 ; Generalized abdominal pain R10.84 and Localized edema R60.0 [address] [id number] [address] [place] [address] Nov, [facility] [employer] [address] [place] [id number] Nov, Anxiety F41.9 ; Urinary retention R33.9 ; Diarrhea of presumed infectious origin R19.7 ; Weakness R53.1 ; Acute kidney failure, unspecified N17.9 ; Chronic kidney disease, stage III (moderate) N18.3 and Thoracic back pain, unspecified back pain laterality, unspecified chronicity M54.6 [address] [id number] [place] [address] Oct, Thoracic back pain, unspecif ied back pain laterality, unspecified chronicity M54.6 and Anxiety F41.9 [facility] [address] [id number] [address] [place] [address] Sep, Thoracic back pain, unspecif ied back pain laterality, unspecified chronicity M54.6 and Anxiety F41.9 [facility] [address] [facility] [id number] [address] [place] [address] 04 Sep, 2017 Thoracic back pain, unspecif ied back pain laterality, unspecified chronicity M54.6 ; Anxiety F41.9 and Encounter for medication monitoring Z51.81 [facility] [address] [facility] [id number] [address] [place] [phone] August, [facility] [address] [facility] [id number] [address] [place] [address] August, Thoracic back pain, unspecif ied back pain laterality, unspecified chronicity M54.6 and Anxiety F41.9 [facility] [id number] [place] [address] August, Hyperlipidemia E78.5 and HTN (hypertension) I10 [facility] [address] [facility] [id number] [address] [place] [address] August, [facility] [address] [facility] [id number] [address] [place] [address] August, Medicare welcome exam Z00.00 ; Chronic kidney failure N18.9 ; Anxiety F41.9 ; Chronic pain G89.29 ; Insomnia G47.00 ; Hyperlipidemia E78.5 ; HTN (hypertension) I10 and Thoracic back pain, unspecified back pain laterality, unspecified chronicity M54.6 [facility] [address] [facility] [id number] [address] [place] [address] Jul, [facility] [address] [facility] [id number] [address] [place] [address] Jul, [facility] [address] [facility] [id number] [address] [place] [address] Jul, [address] [id number] [address] [place] [address] Jul, Anxiety F41.9 [address] [id number] [place] [address] 05 Jul, 2017 Thoracic back pain, unspecif ied back pain laterality, unspecified chronicity M54.6 and Anxiety F41.9 [address] [address] [address] Jun, Thoracic back pain, unspecif ied back pain laterality, unspecified chronicity M54.6 and Anxiety F41.9 [address] [address] [address] 12 May, 2017 Thoracic back pain, unspecif ied back pain laterality, unspecified chronicity M54.6 and Anxiety F41.9 [address] [address] [address] Apr, Thoracic back pain, unspecif ied back pain laterality, unspecified chronicity M54.6 and Anxiety F41.9 [address] [address] [address] Mar, [address] [address] 14 Mar, 2017 Thoracic back pain, unspecif ied back pain laterality, unspecified chronicity M54.6 and Anxiety F41.9 [address] [address] [address] Mar, Thoracic back pain, unspecif ied back pain laterality, unspecified chronicity M54.6 ; HTN (hypertension) I10 ; Hyperlipidemia E78.5 and Anxiety F41.9 [address] [id number] [place] [address] Feb, Thoracic back pain, unspecif ied back pain laterality, unspecified chronicity M54.6 and Anxiety F41.9 [place] [address] [place] [address] Nov, [facility] [id number] [address] [place] [address] Oct, [facility] [address] [address] Oct, Thoracic back pain, unspecif ied back pain laterality, unspecified chronicity M54.6 [facility] [address] [address] Oct, HTN (hypertension) I10 ; Con stipation K59.00 ; Hyperlipidemia E78.5 ; Thoracic back pain, unspecified back pain laterality, unspecified chronicity M54.6 ; Chronic pain G89.29 ; Anxiety F41.9 ; Chronic kidney failure N18.9 ; Environmental allergies Z91.09 ; Vitamin D deficiency E55.9 and Primary insomnia F51.01 [facility] [address] [id number] [address] [place] [address] Sep, Anxiety F41.9 [facility] [address] [id number] [address] [place] [address] Sep, [facility] [address] [address] August, Anxiety F41.9 [facility] [address] [id number] [address] [place] [address] August, [facility] [id number] [address] [place] [address] Jul, Anxiety F41.9 [facility] [id number] [place] [address] Jul, [facility] [address] [id number] [address] [place] [address] Jun, Anxiety F41.9 [facility] [id number] [address] [place] [address] Jun, [facility] [address] [facility] [id number] [address] [place] [address] May, [facility] [id number] [place] [address] May, [facility] [address] [facility] [id number] [address] [place] [address] May, [facility] [id number] [place] [address] Apr, [facility] [address] [facility] [id number] [address] [place] [address] Apr, [facility] [id number] [place] [address] Apr, Anxiety F41.9 [facility] [address] [address] Apr, Anxiety F41.9 [facility] [id number] [address] [place] [address] Apr, [facility] [id number] [place] [address] Mar, HTN (hypertension) I10 ; Phillip mor R25.1 ; Hypercholesterolemia E78.0 ; Constipation K59.00 ; Chronic pain G89.29 ; Hyperlipidemia E78.5 ; Insomnia G47.00 ; Anxiety F41.9 and Thoracic back pain, unspecified back pain laterality, unspecified chronicity M54.6 [facility] [id number] [address] [place] [address] Mar, Tremor R25.1 ; HTN (hyperten stas) I10 ; Hypercholesterolemia E78.0 ; Constipation K59.00 ; Chronic pain G89.29 ; Hyperlipidemia E78.5 ; Insomnia G47.00 ; Anxiety F41.9 and Thoracic back pain, unspecified back pain laterality, unspecified chronicity M54.6 [facility] [id number] [address] [place] [address] Mar, [facility] [address] [id number] [address] [place] [address], [place] [address] Mar, [facility] [address] [id number] [address] [place] [address], [place] [address] Feb, [facility] [address] [id number] [address] [place] [address], [place] [address] Jan, [facility] [address] [id number] [address] [place] [address], [place] [address] Jan, [facility] [address] [id number] [address] [place] [address], [place] [address] Dec, [facility] [address] [id number] [address] [place] [address], [place] [address] Nov, [facility] [address] [id number] [address] [place] [address], [place] [address] Nov, [facility] [address] [id number] [address] [place] [address], [place] [address] Oct, Anxiety F41.9 [facility] [address] [id number] [address] [place] [address], [place] [address] Oct, Chronic pain G89.29 [facility] [address] [id number] [address] [place] [address], [place] [address] Sep, [facility] [address] [id number] [address] [place] [address] Sep, [facility] [address] [id number] [address] [place] [address] Sep, [facility] [address] [id number] [address] [place] [address], [place] [address] Sep, [facility] [address] [id number] [address] [place] [address] 16 Sep, 2015 Chronic pain syndrome G89.4 [facility] [address] [id number] [address] [place] [address] 15 Sep, 2015 HTN (hypertension) I10 ; Chr onic pain G89.29 ; Hypercholesterolemia E78.0 ; Chronic kidney failure N18.9 ; Constipation, unspecified constipation type K59.00 ; Anxiety F41.9 and Thoracic back pain, unspecified back pain laterality, unspecified chronicity M54.6 [facility] [address] [id number] [address] [place] [id number] August, Chronic pain syndrome G89.4 [facility] [address] [id number] [address] [place] [phone] August, Chronic pain syndrome G89.4 [facility] [address] [id number] [address] [place] [id number] Jul, Anxiety disorder, unspecifie d F41.9 and Chronic pain syndrome G89.4 [facility] [address] [facility] [id number] [address] [place] [id number] Jul, Insomnia, unspecified G47.00 and Chronic pain syndrome G89.4 [facility] [address] [id number] [address] [place] [id number] Jul, Allergic rhinitis J30.9 [facility] [address] [facility] [id number] [address] [place] [id number] Jul, Constipation, unspecified K5 9.00 [facility] [address] [facility] [id number] [address] [place] [id number] Jul, [facility] [address] [id number] [address] [place] [phone] Jun, [facility] [address] [id number] [address] [place] [phone] Jun, [facility] [address] [facility] [id number] [address] [place] [phone] Jun, [facility] [address] [id number] [address] [place] [id number] Jun, [facility] [address] [facility] [id number] [address] [place] [id number] Jun, [facility] [address] [facility] [id number] [address] [place] [id number] Jun, [facility] [address] [facility] [id number] [address] [place] [phone] May, [facility] [address] [facility] [id number] [address] [place] [phone] May, [facility] [address] [facility] [id number] [address] [place] [phone] May, Anxiety F41.9 ; Insomnia G47 .00 ; Hyperlipidemia E78.5 ; Chronic pain G89.29 ; HTN (hypertension) I10 ; Environmental allergies V15.09 and Constipation 564.00 [facility] [address] [facility] [id number] [address] [place] [id number] Apr, [facility] [address] [facility] [id number] [address] [place] [address] Apr, [facility] [address] [facility] [id number] [address] [place] [address] Apr, [facility] [address] [facility] [id number] [address] [place] [address] Mar, [facility] [address] [id number] [address] [place] [address] Mar, [facility] [address] [facility] [id number] [address] [place] [id number] Mar, [facility] [address] [facility] [id number] [address] [place] [address] Feb, [facility] [address] [facility] [id number] [address] [place] [address] Feb, [facility] [address] [id number] [address] [place] [id number] Feb, [facility] [address] [facility] [id number] [address] [place] [address] Jan, HTN (hypertension) I10 ; Con stipation K59.00 ; Chronic pain G89.29 ; Hyperlipidemia E78.5 ; Hypercholesterolemia E78.0 ; Insomnia G47.00 and Anxiety F41.9 [facility] [address] [address] Jan, [address] [address] Dec, [place] [address] [address] Nov, [address] [address] Oct, Chronic kidney disease, unsp ecified 585.9 ; Chronic pain syndrome 338.4 ; Hyperlipidemia 272.4 and Essential hypertension 401.[address] [address] Oct, Chronic kidney disease 585.9 [place] [address] [address] Oct, [address] [address] Oct, Chronic kidney disease, unsp ecified 585.9 ; Hypercalcemia 275.42 ; Hyperlipidemia 272.4 ; Essential hypertension 401.9 ; Chronic pain syndrome 338.4 ; Insomnia 780.52 ; Constipation 564.00 ; Environmental allergies V15.09 and Anxiety 300.00 [place] [id number] [address] [place] [address] Oct, Chronic kidney disease 585.[address] [address] Oct, [address] [address] Oct, Chronic kidney disease 585.9 and Hyperlipidemia 272.[address] [place] [address] 10 Oct, 2014 [facility] [address] [id number] [address] [place] [address], [place] [address] 10 Oct, 2014 [facility] [address] [id number] [address] [place] [address] 18 Sep, 2014 [facility] [address] [id number] [address] [place] [address] 15 Sep, 2014 [facility] [address] [id number] [address] [place] [address] 15 Sep, 2014 Chronic kidney disease 585.9 and Hyperlipidemia 272.4 [facility] [address] [id number] [address] [place] [address], [place] [address] Sep, [facility] [address] [id number] [address] [place] [address] August, [facility] [address] [id number] [address] [place] [address], [place] [address] August, [facility] [address] [id number] [address] [place] [address] 14 Jul, 2014 [facility] [address] [id number] [address] [place] [address], [place] [address] 13 Jul, 2014 [facility] [address] [id number] [address] [place] [address] 20 Jun, 2014 [facility] [address] [id number] [address] [place] [id number] 20 Jun, 2014 [facility] [address] [id number] [address] [place] [address] 16 Jun, 2014 [facility] [address] [id number] [address] [place] [address], [place] [address] 16 Jun, 2014 [facility] [address] [id number] [address] [place] [address] 09 Jun, 2014 [facility] [address] [id number] [address] [place] [address] Jun, [facility] [address] [id number] [address] [place] [address], [place] [address] Jun, [facility] [address] [id number] [address] [place] [address], [place] [address] Jun, [facility] [address] [id number] [address] [place] [address], [place] [address] May, [facility] [address] [id number] [address] [place] [address], [place] [address] May, [facility] [address] [id number] [address] [place] [address], [place] [address] May, [facility] [address] [id number] [address] [place] [address], [place] [address] May, [facility] [address] [id number] [address] [place] [address], [place] [address] Apr, [facility] [address] [id number] [address] [place] [address], [place] [address] Apr, [facility] [address] [id number] [address] [place] [address], [place] [address] Apr, [facility] [address] [id number] [address] [place] [address], [place] [address] Apr, [facility] [address] [id number] [address] [place] [address], [place] [address] Apr, [facility] [address] [id number] [address] [place] [address], [place] [address] Apr, [facility] [address] [id number] [address] [place] [address], [place] [address] Apr, [facility] [address] [id number] [address] [place] [address], [place] [address] Apr, [facility] [address] [id number] [address] [place] [address], [place] [address] Apr, [facility] [address] [id number] [address] [place] [address], [place] [address] 16 Apr, 2014 [facility] [address] [id number] [address] [place] [address], [place] [address] Apr, [facility] [address] [id number] [address] [place] [address], [place] [address] Mar, [facility] [address] [id number] [address] [place] [address], [place] [address] Mar, [facility] [address] [id number] [address] [place] [address], [place] [address] Feb, [facility] [address] [id number] [address] [place] [address], [place] [address] Feb, [facility] [address] [id number] [address] [place] [address], [place] [address] Feb, [facility] [address] [id number] [address] [place] [address], [place] [address] Feb, [facility] [address] [id number] [address] [place] [address], [place] [address] Feb, [facility] [address] [id number] [address] [place] [address], [place] [address] Feb, [facility] [address] [id number] [address] [place] [address], [place] [address] Feb, [facility] [address] [id number] [address] [place] [address], [place] [address] Feb, [facility] [address] [id number] [address] [place] [address], [place] [address] Feb, [facility] [address] [id number] [address] [place] [address], [place] [address] Feb, [facility] [address] [id number] [address] [place] [address], [place] [address] Jan, [facility] [address] [id number] [address] [place] [address], [place] [address] Jan, [facility] [address] [id number] [address] [place] [address], [place] [address] Jan, [facility] [address] [id number] [address] [place] [address], [place] [address] Jan, [facility] [address] [id number] [address] [place] [address], [place] [address] Jan, [facility] [address] [id number] [address] [place] [address], [place] [address] 24 Jan, 2014 [facility] [address] [id number] [address] [place] [address], [place] [address] Jan, [facility] [address] [id number] [address] [place] [address], [place] [address] 17 Jan, 2014 [facility] [address] [id number] [address] [place] [address], [place] [address] 16 Jan, 2014 [facility] [address] [id number] [address] [place] [address], [place] [address] Jan, [facility] [address] [id number] [address] [place] [address], [place] [address] 06 Jan, 2014 [facility] [address] [id number] [address] [place] [address], [place] [address] 26 Dec, 2013 [facility] [address] [id number] [address] [place] [address], [place] [address] 26 Dec, 2013 [facility] [address] [id number] [address] [place] [address], [place] [address] 19 Dec, 2013 [facility] [address] [id number] [address] [place] [address], [place] [address] 19 Dec, 2013 [facility] [address] [id number] [address] [place] [address], [place] [address] 18 Dec, 2013 [facility] [address] [id number] [address] [place] [address], [place] [address] 18 Dec, 2013 [facility] [address] [id number] [address] [place] [address] [place] [address] Dec, 2013 [facility] [address] [id number] [address] [place] [address], [place] [address] Dec, [facility] [address] [id number] [address] [place] [address], [place] [address] Nov, [facility] [address] [id number] [address] [place] [address], [place] [address] Nov, [facility] [address] [id number] [address] [place] [address], [place] [address] Nov, [facility] [address] [id number] [address] [place] [address], [place] [address] Nov, [facility] [address] [id number] [address] [place] [address], [place] [address] Nov, [facility] [address] [id number] [address] [place] [address], [place] [address] Nov, [facility] [address] [id number] [address] [place] [address], [place] [address] Nov, [facility] [address] [id number] [address] [place] [address], [place] [address] Nov, [facility] [address] [id number] [address] [place] [address], [place] [address] Oct, [facility] [address] [id number] [address] [place] [address], [place] [address] Oct, [facility] [address] [id number] [address] [place] [address], [place] [address] Oct, [facility] [address] [id number] [address] [place] [address], [place] [address] Oct, [facility] [address] [id number] [address] [place] [address], [place] [address] Sep, [facility] [address] [id number] [address] [place] [address], [place] [address] Sep, [facility] [address] [id number] [address] [place] [address], [place] [address] Sep, [facility] [address] [id number] [address] [place] [address], [place] [address] Sep, [facility] [address] [id number] [address] [place] [address], [place] [address] Sep, [facility] [address] [id number] [address] [place] [address], [place] [address] Sep, [facility] [address] [id number] [address] [place] [address], [place] [address] Sep, [facility] [address] [id number] [address] [place] [address], [place] [address] Sep, [facility] [address] [id number] [address] [place] [address], [place] [address] August, [facility] [address] [id number] [address] [place] [address], [place] [address] August, [facility] [address] [id number] [address] [place] [address], [place] [address] August, [facility] [address] [id number] [address] [place] [address], [place] [address] August, [facility] [address] [id number] [address] [place] [address], [place] [address] August, [facility] [address] [id number] [address] [place] [address], [place] [address] August, [facility] [address] [id number] [address] [place] [address], [place] [address] August, [facility] [address] [id number] [address] [place] [address], [place] [address] August, [facility] [address] [id number] [address] [place] [address], [place] [address] August, [facility] [address] [id number] [address] [place] [address], [place] [address] August, [facility] [address] [id number] [facility] [place] [address] Jul, [facility] [address] [id number] [address] [place] [address], [place] [address] Jul, [facility] [address] [id number] [address] [place] [address], [place] [address] Jul, [facility] [address] [id number] [address] [place] [address], [place] [address] Jul, [facility] [address] [id number] [address] [place] [address], [place] [address] Jul, [facility] [address] [id number] [address] [place] [address], [place] [address] Jul, [facility] [address] [id number] [address] [place] [address], [place] [address] Jul, [facility] [address] [id number] [address] [place] [address], [place] [address] Jul, [facility] [address] [id number] [address] [place] [address], [place] [address] Jun, [facility] [address] [id number] [address] [place] [address], [place] [address] Jun, [facility] [address] [id number] [address] [place] [address], [place] [address] Jun, [facility] [address] [id number] [address] [place] [address], [place] [address] Jun, [facility] [address] [id number] [address] [place] [address], [place] [address] Jun, [facility] [address] [id number] [address] [place] [address], [place] [address] Jun, [facility] [address] [id number] [address] [place] [address], [place] [address] May, [facility] [address] [id number] [address] [place] [address], [place] [address] May, [facility] [address] [id number] [address] [place] [address], [place] [address] May, [facility] [address] [id number] [address] [place] [address], [place] [address] May, [facility] [address] [id number] [address] [place] [address], [place] [address] May, [facility] [address] [id number] [address] [place] [address], [place] [address] May, [facility] [address] [id number] [address] [place] [address], [place] [address] May, [facility] [address] [id number] [address] [place] [address], [place] [address] Apr, [facility] [address] [id number] [address] [place] [address], [place] [address] Apr, [facility] [address] [id number] [address] [place] [address], [place] [address] Apr, [facility] [address] [id number] [address] [place] [address], [place] [address] Apr, [facility] [address] [id number] [address] [place] [address], [place] [address] Apr, [facility] [address] [id number] [address] [place] [address], [place] [address] Apr, [facility] [address] [id number] [address] [place] [address], [place] [address] Mar, [facility] [address] [id number] [address] [place] [address], [place] [address] Mar, [facility] [address] [id number] [address] [place] [address], [place] [address] Mar, [facility] [address] [id number] [address] [place] [address] [address] Mar, [facility] [address] [id number] [address] [place] [address], [place] [address] Mar, [facility] [address] [id number] [address] [place] [address], [place] [address] Mar, [facility] [address] [id number] [address] [place] [address], [place] [address] 16 Mar, 2013 [facility] [address] [id number] [address] [place] [address], [place] [address] 16 Mar, 2013 [facility] [address] [id number] [address] [place] [address], [place] [address] Mar, [facility] [address] [id number] [address] [place] [address], [place] [address] Mar, [facility] [address] [id number] [address] [place] [address], [place] [address] Feb, [facility] [address] [id number] [address] [place] [address], [place] [address] Feb, [facility] [address] [id number] [address] [place] [address], [place] [address] Feb, [facility] [address] [id number] [address] [place] [address], [place] [address] Feb, [facility] [address] [id number] [address] [place] [address], [place] [address] 14 Feb, 2013 [facility] [address] [id number] [address] [place] [address] 14 Feb, 2013 [facility] [address] [id number] [address] [place] [address], [place] [address] Feb, [facility] [address] [id number] [address] [place] [address], [place] [address] Feb, [facility] [address] [id number] [address] [place] [address], [place] [address] 08 Feb, 2013 [facility] [address] [id number] [address] [place] [address], [place] [address] Feb, [facility] [address] [id number] [address] [place] [address], [place] [address] Jan, [facility] [address] [id number] [address] [place] [address], [place] [address] Jan, [facility] [address] [id number] [address] [place] [address], [place] [address] Jan, [facility] [address] [id number] [address] [place] [address], [place] [address] Jan, [facility] [address] [id number] [address] [place] [address], [place] [address] Jan, [facility] [address] [id number] [address] [place] [address], [place] [address] Jan, [facility] [address] [id number] [address] [place] [address], [place] [address] Jan, [facility] [address] [id number] [address] [place] [address], [place] [address] Jan, [facility] [address] [id number] [address] [place] [address], [place] [address] Jan, [facility] [address] [id number] [address] [place] [address], [place] [address] Dec, [facility] [address] [id number] [address] [place] [address], [place] [address] Dec, [facility] [address] [id number] [address] [place] [address], [place] [address] 21 Dec, 2012 [facility] [address] [id number] [address] [place] [address], [place] [address] 13 Dec, 2012 [facility] [address] [id number] [address] [place] [address], [place] [address] Nov, [facility] [address] [id number] [address] [place] [address], [place] [address] Nov, [facility] [address] [id number] [address] [place] [address], [place] [address] Nov, [facility] [address] [id number] [address] [place] [address], [place] [address] Nov, [facility] [address] [id number] [address] [place] [address], [place] [address] Nov, [facility] [address] [id number] [address] [place] [address], [place] [address] Nov, [facility] [address] [id number] [address] [place] [address], [place] [address] Oct, [facility] [address] [id number] [address] [place] [address], [place] [address] Oct, [facility] [address] [id number] [address] [place] [address], [place] [address] Oct, [facility] [address] [id number] [address] [place] [address], [place] [address] Oct, [facility] [address] [id number] [address] [place] [address], [place] [address] Sep, [facility] [address] [id number] [address] [place] [address], [place] [address] Sep, [facility] [address] [id number] [address] [place] [address], [place] [address] Sep, [facility] [address] [id number] [address] [place] [address], [place] [address] Sep, [facility] [address] [id number] [address] [place] [address], [place] [address] Sep, [facility] [address] [id number] [address] [place] [address], [place] [address] August, [facility] [address] [id number] [address] [place] [address], [place] [address] August, [facility] [address] [id number] [address] [place] [address], [place] [address] Jul, [facility] [address] [id number] [address] [place] [address], [place] [address] Jul, [facility] [address] [id number] [address] [place] [address], [place] [address] 15 Jul, 2012 [facility] [address] [id number] [address] [place] [address], [place] [address] Jul, [facility] [address] [id number] [address] [place] [address], [place] [address] Jul, [facility] [address] [id number] [address] [place] [address], [place] [address] Jun, [facility] [address] [id number] [address] [place] [address], [place] [address] Jun, [facility] [address] [id number] [address] [place] [address], [place] [address] Jun, [facility] [address] [id number] [address] [place] [address], [place] [address] Jun, [facility] [address] [id number] [address] [place] [address], [place] [address] Jun, [facility] [address] [id number] [address] [place] [address], [place] [address] 28 May, 2012 [facility] [address] [id number] [address] [place] [address], [place] [address] May, [facility] [address] [id number] [address] [place] [address], [place] [address] May, [facility] [address] [id number] [address] [place] [address], [place] [address] 21 May, 2012 [facility] [address] [id number] [address] [place] [address], [place] [address] 20 May, 2012 [facility] [address] [id number] [address] [place] [address], [place] [address] 14 May, 2012 [facility] [address] [id number] [address] [place] [address], [place] [address] May, [facility] [address] [id number] [address] [place] [address], [place] [address] 08 May, 2012 [facility] [address] [id number] [address] [place] [address], [place] [address] May, [facility] [address] [id number] [address] [place] [address], [place] [address] Apr, [facility] [address] [id number] [address] [place] [address], [place] [address] Apr, [facility] [address] [id number] [address] [place] [address], [place] [address] Apr, [facility] [address] [id number] [address] [place] [address], [place] [address] Apr, [facility] [address] [id number] [address] [place] [address], [place] [address] Apr, [facility] [address] [id number] [address] [place] [address], [place] [address] Mar, [facility] [address] [id number] [address] [place] [address], [place] [address] Mar, [facility] [address] [id number] [address] [place] [address], [place] [address] Mar, [facility] [address] [id number] [address] [place] [address], [place] [address] Mar, [facility] [address] [id number] [address] [place] [address], [place] [address] Mar, [facility] [address] [id number] [address] [place] [address], [place] [address] Mar, [facility] [address] [id number] [address] [place] [address], [place] [address] 17 Mar, 2012 [facility] [address] [id number] [address] [place] [address], [place] [address] 17 Mar, 2012 [facility] [address] [id number] [address] [place] [address], [place] [address] Mar, [facility] [address] [id number] [address] [place] [address], [place] [address] Mar, [facility] [address] [id number] [address] [place] [address], [place] [address] 30 Feb, 2012 [facility] [address] [id number] [address] [place] [address], [place] [address] 30 Feb, 2012 [facility] [address] [id number] [address] [place] [address], [place] [address] Feb, [facility] [address] [id number] [address] [place] [address], [place] [address] Feb, [facility] [address] [id number] [address] [place] [address], [place] [address] Feb, [facility] [address] [id number] [address] [place] [address], [place] [address] Feb, [facility] [address] [id number] [address] [place] [address], [place] [address] Feb, [facility] [address] [id number] [address] [place] [address], [place] [address] Feb, [facility] [address] [id number] [address] [place] [address], [place] [address] 16 Feb, 2012 [facility] [address] [id number] [address] [place] [address], [place] [address] 16 Feb, 2012 [facility] [address] [id number] [address] [place] [address], [place] [address] 13 Feb, 2012 [facility] [address] [id number] [address] [place] [address], [place] [address] 13 Feb, 2012 [facility] [address] [id number] [address] [place] [address], [place] [address] 12 Feb, 2012 [facility] [address] [id number] [address] [place] [address], [place] [address] Feb, [facility] [address] [id number] [address] [place] [address], [place] [address] Feb, [facility] [address] [id number] [address] [place] [address], [place] [address] Feb, [facility] [address] [id number] [address] [place] [address], [place] [address] Feb, [facility] [address] [id number] [address] [place] [address], [place] [address] Feb, [facility] [address] [id number] [address] [place] [address], [place] [address] Jan, [facility] [address] [id number] [address] [place] [address], [place] [address] Jan, [facility] [address] [id number] [address] [place] [address], [place] [address] Jan, [facility] [address] [id number] [address] [place] [address], [place] [address] Jan, [facility] [address] [id number] [address] [place] [address], [place] [address] Jan, [facility] [address] [id number] [address] [place] [address], [place] [address] Jan, [facility] [address] [id number] [address] [place] [address], [place] [address] Jan, [facility] [address] [id number] [address] [place] [address] Jan, [facility] [address] [id number] [address] [place] [address], [place] [address] Jan, [facility] [address] [id number] [address] [place] [address], [place] [address] Jan, [facility] [address] [id number] [address] [place] [address] Dec, [facility] [address] [id number] [address] [place] [address], [place] [address] Dec, [facility] [address] [id number] [address] [place] [address], [place] [address] Dec, [facility] [address] [id number] [address] [place] [address], [place] [address] Dec, [facility] [address] [id number] [address] [place] [address], [place] [address] Nov, [facility] [address] [id number] [address] [place] [address], [place] [address] Nov, [facility] [address] [id number] [address] [place] [address], [place] [address] Nov, [facility] [address] [id number] [address] [place] [address], [place] [address] Nov, [facility] [address] [id number] [address] [place] [address], [place] [address] Nov, [facility] [address] [id number] [address] [place] [address], [place] [address] Nov, [facility] [address] [id number] [address] [place] [address], [place] [address] Oct, [facility] [address] [id number] [address] [place] [address], [place] [address] Oct, [facility] [address] [id number] [address] [place] [address], [place] [address] Oct, [facility] [address] [id number] [address] [place] [address], [place] [address] Oct, [facility] [address] [id number] [address] [place] [address], [place] [address] Oct, [facility] [address] [id number] [address] [place] [address], [place] [address] Sep, [facility] [address] [id number] [address] [place] [address], [place] [address] 20 Sep, 2011 [facility] [address] [id number] [address] [place] [address], [place] [address] Sep, [facility] [address] [id number] [address] [place] [address], [place] [address] 07 Sep, 2011 [facility] [address] [id number] [address] [place] [address], [place] [address] 05 Sep, 2011 [facility] [address] [id number] [address] [place] [address], [place] [address] August, [facility] [address] [id number] [address] [place] [address], [place] [address] August, [facility] [address] [id number] [address] [place] [address], [place] [address] August, [facility] [address] [id number] [address] [place] [address], [place] [address] August, [facility] [address] [id number] [address] [place] [address], [place] [address] 27 Jul, 2011 [facility] [address] [id number] [address] [place] [address], [place] [address] 24 Jul, 2011 [facility] [address] [id number] [address] [place] [address], [place] [address] Jul, [facility] [address] [id number] [address] [place] [address], [place] [address] 18 Jul, 2011 [facility] [address] [id number] [address] [place] [address], [place] [address] 18 Jul, 2011 [facility] [address] [id number] [address] [place] [address], [place] [address] 12 Jul, 2011 [facility] [address] [id number] [address] [place] [address], [place] [address] 11 Jul, 2011 [facility] [address] [id number] [address] [place] [address], [place] [address] 10 Jul, 2011 [facility] [address] [id number] [facility] [place] [address] Jul, [facility] [address] [id number] [address] [place] [address], [place] [address] Jul, [facility] [address] [id number] [address] [place] [address], [place] [address] Jul, [facility] [address] [id number] [address] [place] [address], [place] [address] Jul, [facility] [address] [id number] [address] [place] [address], [place] [address] Jul, [facility] [address] [id number] [address] [place] [address], [place] [address] Jul, [facility] [address] [id number] [address] [place] [address], [place] [address] Jun, [facility] [address] [id number] [address] [place] [address], [place] [address] Jun, [facility] [address] [id number] [address] [place] [address], [place] [address] Jun, [facility] [address] [id number] [address] [place] [address], [place] [address] Jun, [facility] [address] [id number] [address] [place] [address], [place] [address] May, [facility] [address] [id number] [address] [place] [address], [place] [address] May, [facility] [address] [id number] [address] [place] [address], [place] [address] May, [facility] [address] [id number] [address] [place] [address], [place] [address] Apr, [facility] [address] [id number] [address] [place] [address], [place] [address] Apr, [facility] [address] [id number] [address] [place] [address], [place] [address] 13 Apr, 2011 [facility] [address] [id number] [address] [place] [address], [place] [address] Apr, [facility] [address] [id number] [address] [place] [address], [place] [address] 09 Apr, 2011 [facility] [address] [id number] [address] [place] [address], [place] [address] Mar, [facility] [address] [id number] [address] [place] [address], [place] [address] Mar, [facility] [address] [id number] [address] [place] [address], [place] [address] Mar, [facility] [address] [id number] [address] [place] [address], [place] [address] Mar, [facility] [address] [id number] [address] [place] [address], [place] [address] 16 Mar, 2011 [facility] [address] [id number] [address] [place] [address], [place] [address] Mar, [facility] [address] [id number] [address] [place] [address], [place] [address] 05 Mar, 2011 [facility] [address] [id number] [address] [place] [address], [place] [address] 29 Feb, 2011 [facility] [address] [id number] [address] [place] [address], [place] [address] Feb, [facility] [address] [id number] [address] [place] [address], [place] [address] Feb, [facility] [address] [id number] [address] [place] [address], [place] [address] Feb, [facility] [address] [id number] [address] [place] [address], [place] [address] 16 Feb, 2011 [facility] [address] [id number] [address] [place] [address], [place] [address] 14 Feb, 2011 [facility] [address] [id number] [address] [place] [address], [place] [address] 10 Feb, 2011 [facility] [address] [id number] [address] [place] [address], [place] [address] 31 Jan, 2011 [facility] [address] [id number] [address] [place] [address], [place] [address] 31 Jan, 2011 [facility] [address] [id number] [address] [place] [address], [place] [address] 31 Jan, 2011 [facility] [address] [id number] [address] [place] [address], [place] [address] 18 Jan, 2011 [facility] [address] [id number] [address] [place] [address], [place] [address] 17 Jan, 2011 [facility] [address] [id number] [address] [place] [address], [place] [address] 17 Jan, 2011 [facility] [address] [id number] [address] [place] [address], [place] [address] Jun, [facility] [address] [id number] [address] [place] [address], [place] [address] 30 Mar, 2010 [facility] [address] [id number] [address] [place] [address], [place] [address] 20 Mar, 2010 [facility] [address] [id number] [address] [place] [address], [place] [address] 14 Mar, 2010 [facility] [address] [id number] [address] [place] [address], [place] [address] 14 Mar, 2010 [facility] [address] [id number] [address] [place] [address], [place] [address] 13 Mar, 2010 [facility] [address] [id number] [address] [place] [address], [place] [address] 07 Mar, 2010 [facility] [address] [id number] [address] [place] [address], [place] [address] 02 Mar, 2010 [facility] [address] [id number] [address] [place] [address], [place] [address] Mar, [facility] [address] [id number] [address] [place] [address], [place] [address] 30 Feb, 2010 [facility] [address] [id number] [address] [place] [address], [place] [address] Feb, [facility] [address] [id number] [address] [place] [address], [place] [address] Feb, [facility] [address] [id number] [address] [place] [address], [place] [address] Feb, [facility] [address] [id number] [address] [place] [address], [place] [address] 16 Feb, 2010 [facility] [address] [id number] [address] [place] [address], [place] [address] Feb, [facility] [address] [id number] [address] [place] [address], [place] [address] Feb, [facility] [address] [id number] [address] [place] [address], [place] [address] Feb, [facility] [address] [id number] [address] [place] [address], [place] [address] Jan, [facility] [address] [id number] [address] [place] [address] Jan, [facility] [address] [id number] [address] [place] [address] Jan, [facility] [address] [id number] [address] [place] [address] Jan, [facility] [address] [id number] [address] [place] [address], [place] [address] Mar, [facility] [address] [id number] [address] [place] [address] Mar, [facility] [address] [id number] [address] [place] [address] Mar, [facility] [address] [id number] [address] [place] [address] Mar, [facility] [address] [facility] [id number] [address] [place] [address] 14 Mar, 2009 [facility] [address] [facility] [id number] [address] [place] [address] Mar, [facility] [address] [facility] [id number] [address] [place] [address] Feb, [facility] [address] [facility] [id number] [address] [place] [address] Feb, [facility] [address] [facility] [id number] [address] [place] [id number] Jan, [facility] [address] [facility] [id number] [address] [place] [address] Sep, [facility] [address] [facility] [id number] [address] [place] [address] May, IMMUNIZATIONS No Known Immunizations SOCIAL HISTORY [...] History [facility] [place]- Spontane ous Pneumothorax Hospitalization History [facility]- Colon resection Hospitalization History [facility] - diarrhea/ couldnt urin ate nov 2017 Hospitalization History pain /hip to foot right side 10/16/19 19
--- OUTSIDE RECORDS SUMMARY | 2019-08-28 09:06 | XMS REPORT ---
Author Author Dixon Lundberg Doctor Organization [facility] Address Unknown Phone Unavailable Care Team Providers Care Shroud Line Tier Name Role Phone Migration, Doctor Unavailable Unavailable PROBLEMS Type Condition ICD9-CM Code [id number] Code Onset Dates Condition S tatus SNOMED Code Problem Insomnia G47.00 Active 153249313 Problem Anxiety F41.9 Active 17222414 Problem HTN (hypertension) I10 Active 3 1126173 Problem Hyperlipidemia E78.5 Active 80337 004 Problem Thoracic back pain, unspecif ied back pain laterality, unspecified chronicity M54.6 Active 689019162 Problem Vitamin D deficiency E55.9 Active 07294405 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 50232128 Problem Chronic pain G89.29 Active 4591537 1 Problem Schizophrenia, unspecified type F20.9 Active 13667424 Problem Constipation K59.00 Active 9403258 8 Problem Environmental allergies Z91.09 Active 928875838 Problem Primary insomnia F51.01 Active 397 2004 Problem Chronic kidney disease, stage III (moderate) N18.3 Active 772799939 Problem Vision loss H54.7 Active 17676680 1 ALLERGIES No Information ENCOUNTERS Encounter Location Date Diagnosis [place] [address] [address] [facility] [id number] [address] [place] [address] Nov, Thoracic back pain, unspecif ied back pain laterality, unspecified chronicity M54.6 [facility] [address] [facility] [id number] [address] [place] [address] Nov, Anxiety F41.9 and Thoracic b ack pain, unspecified back pain laterality, unspecified chronicity M54.6 [facility] [address] [facility] [id number] [address] [place] [address] Nov, [facility] [address] [facility] [id number] [address] [place] [address] Nov, [facility] [address] [id number] [address] [place] [address] Nov, [facility] [address] [id number] [address] [place] [address] Oct, Thoracic back pain, unspecif ied back pain laterality, unspecified chronicity M54.6 [facility] [address] [id number] [address] [place] [address] Oct, Anxiety F41.9 and Thoracic b ack pain, unspecified back pain laterality, unspecified chronicity M54.6 [facility] [address] [id number] [address] [place] [address] Oct, Schizophrenia, unspecified t ype F20.9 and Acute kidney injury N17.9 [facility] [address] [id number] [address] [place] [phone] Oct, [facility] [address] [id number] [address] [place] [address] Oct, [facility] [address] [id number] [address] [place] [address] Oct, Thoracic back pain, unspecif ied back pain laterality, unspecified chronicity M54.6 [facility] [address] [id number] [address] [place] [address] Oct, [facility] [address] [id number] [address] [place] [id number] Oct, [facility] [address] [id number] [address] [place] [address] Sep, Anxiety F41.9 [facility] [address] [id number] [address] [place] [address] Sep, [facility] [address] [id number] [address] [place] [address] Sep, Thoracic back pain, unspecif ied back pain laterality, unspecified chronicity M54.6 [facility] [address] [id number] [address] [place] [address] Sep, [facility] [address] [facility] [id number] [address] [place] [address] Sep, [facility] [address] [facility] [id number] [address] [place] [address] Sep, [facility] [address] [facility] [id number] [address] [place] [address] Sep, [facility] [address] [id number] [address] [place] [id number] Sep, [facility] [address] [facility] [id number] [address] [place] [address] Sep, [facility] [address] [facility] [id number] [address] [place] [address] Sep, Chronic pain G89.29 ; Chroni c kidney disease, stage III (moderate) N18.3 ; Hyperlipidemia E78.5 and Insomnia G47.00 [facility] [address] [facility] [id number] [address] [place] [address] Sep, Thoracic back pain, unspecif ied back pain laterality, unspecified chronicity M54.6 [facility] [address] [facility] [id number] [address] [place] [address] August, Anxiety F41.9 [facility] [address] [facility] [id number] [address] [place] [address] August, Thoracic back pain, unspecif ied back pain laterality, unspecified chronicity M54.6 and Anxiety F41.9 [facility] [address] [facility] [id number] [address] [place] [address] August, 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 [facility] [address] [facility] [id number] [address] [place] [address] August, 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 [facility] [address] [facility] [id number] [address] [place] [address] August, [facility] [address] [facility] [id number] [address] [place] [address] August, [facility] [address] [id number] [address] [place] [address] August, Thoracic back pain, unspecif ied back pain laterality, unspecified chronicity M54.6 [facility] [address] [id number] [address] [place] [address] August, [facility] [address] [id number] [address] [place] [address] August, Anxiety F41.9 and Thoracic b ack pain, unspecified back pain laterality, unspecified chronicity M54.6 [facility] [address] [id number] [address] [place] [address] Jul, [facility] [address] [id number] [address] [place] [address] Jul, Thoracic back pain, unspecif ied back pain laterality, unspecified chronicity M54.6 [facility] [address] [id number] [address] [place] [address] Jun, Anxiety F41.9 and Thoracic b ack pain, unspecified back pain laterality, unspecified chronicity M54.6 [facility] [address] [id number] [address] [place] [address] Jun, Anxiety F41.9 and Thoracic b ack pain, unspecified back pain laterality, unspecified chronicity M54.6 [facility] [address] [id number] [address] [place] [address] Jun, Thoracic back pain, unspecif ied back pain laterality, unspecified chronicity M54.6 [facility] [address] [id number] [address] [place] [address] Jun, Anxiety F41.9 and Thoracic b ack pain, unspecified back pain laterality, unspecified chronicity M54.6 [facility] [address] [id number] [address] [place] [address] May, [facility] [address] [id number] [address] [place] [address] May, [facility] [address] [id number] [address] [place] [address] 08 May, 2018 [facility] [address] [id number] [address] [place] [address] May, Anxiety F41.9 and Encounter for medication monitoring Z51.81 [facility] [address] [id number] [address] [place] [address] 05 May, 2018 Anxiety F41.9 and Thoracic b ack pain, unspecified back pain laterality, unspecified chronicity M54.6 [place] [address] [id number] [address] [place] [address] Apr, Hyperlipidemia 272.4 [place] [address] [id number] [address] [place] [address] Apr, Chronic pain G89.29 ; Anxiet y F41.9 ; Cervical radiculopathy M54.12 and Vision loss H54.7 [facility] [address] [id number] [address] [place] [address] Apr, [facility] [address] [id number] [address] [place] [address] Apr, Anxiety F41.9 and Thoracic b ack pain, unspecified back pain laterality, unspecified chronicity M54.6 [facility] [address] [id number] [address] [place] [id number] 17 Mar, 2018 [facility] [address] [id number] [address] [place] [address] Mar, Anxiety F41.9 and Thoracic b ack pain, unspecified back pain laterality, unspecified chronicity M54.6 [facility] [address] [id number] [address] [place] [address] Feb, Anxiety F41.9 and Thoracic b ack pain, unspecified back pain laterality, unspecified chronicity M54.6 [facility] [address] [id number] [address] [place] [address] 07 Feb, 2018 Thoracic back pain, unspecif ied back pain laterality, unspecified chronicity M54.6 [facility] [address] [id number] [address] [place] [phone] 29 Jan, 2018 [facility] [address] [id number] [address] [place] [address] Jan, Anxiety F41.9 and Thoracic b ack pain, unspecified back pain laterality, unspecified chronicity M54.6 [facility] [address] [id number] [address] [place] [address] 19 Dec, 2017 Diarrhea of presumed infecti ous origin R19.7 [facility] [address] [id number] [address] [place] [id number] 19 Dec, 2017 Diarrhea of presumed infecti ous origin R19.7 [facility] [address] [id number] [address] [place] [id number] 18 Dec, 2017 Thoracic back pain, unspecif ied back pain laterality, unspecified chronicity M54.6 [facility] [address] [id number] [address] [place] [id number] 17 Dec, 2017 [facility] [address] [id number] [address] [place] [id number] 17 Dec, 2017 Anxiety F41.9 and Thoracic b ack pain, unspecified back pain laterality, unspecified chronicity M54.6 [facility] [address] [id number] [address] [place] [address] 13 Dec, 2017 Diarrhea of presumed infecti ous origin R19.7 [facility] [address] [id number] [address] [place] [id number] 13 Dec, 2017 [facility] [address] [id number] [address] [place] [address] 12 Dec, 2017 Anxiety F41.9 and Thoracic b ack pain, unspecified back pain laterality, unspecified chronicity M54.6 [place] [address] [address] Dec, Anxiety F41.9 and Thoracic b ack pain, unspecified back pain laterality, unspecified chronicity M54.6 [facility] [address] [place] [id number] Dec, Diarrhea of presumed infectious origin R 19.7 ; Anxiety F41.9 ; Thoracic back pain, unspecified back pain laterality, unspecified chronicity M54.6 and HTN (hypertension) I10 [place] [address] [address] Dec, Anxiety F41.9 [facility] [address] [place] [id number] Dec, Anxiety F41.9 ; Diarrhea of presumed inf ectious origin R19.7 ; Generalized abdominal pain R10.84 and Localized edema R60.0 [place] [address] [place] [id number] [address] [place] [address] Nov, [facility] [address] [place] [id number] Nov, Anxiety F41.9 ; Urinary retention R33.9 ; Diarrhea of presumed infectious origin R19.7 ; Weakness R53.1 ; Acute kidney failure, unspecified N17.9 ; Chronic kidney disease, stage III (moderate) N18.3 and Thoracic back pain, unspecified back pain laterality, unspecified chronicity M54.6 [place] [address] [place] [id number] [address] [place] [address] Oct, Thoracic back pain, unspecif ied back pain laterality, unspecified chronicity M54.6 and Anxiety F41.9 [place] [address] [place] [id number] [address] [place] [address] Sep, Thoracic back pain, unspecif ied back pain laterality, unspecified chronicity M54.6 and Anxiety F41.9 [place] [address] [id number] [address] [place] [address] Sep, Thoracic back pain, unspecif ied back pain laterality, unspecified chronicity M54.6 ; Anxiety F41.9 and Encounter for medication monitoring Z51.81 [facility] [address] [id number] [address] [place] [address] August, [facility] [address] [facility] [id number] [address] [place] [address] August, Thoracic back pain, unspecif ied back pain laterality, unspecified chronicity M54.6 and Anxiety F41.9 [place] [address] [facility] [id number] [address] [place] [address] August, Hyperlipidemia E78.5 and HTN (hypertension) I10 [place] [address] [facility] [id number] [address] [place] [address] August, [place] [address] [facility] [id number] [address] [place] [address] August, Medicare welcome exam Z00.00 ; Chronic kidney failure N18.9 ; Anxiety F41.9 ; Chronic pain G89.29 ; Insomnia G47.00 ; Hyperlipidemia E78.5 ; HTN (hypertension) I10 and Thoracic back pain, unspecified back pain laterality, unspecified chronicity M54.6 [place] [address] [id number] [address] [place] [address] Jul, [place] [address] [facility] [id number] [address] [place] [address] Jul, [facility] [address] [id number] [address] [place] [address] Jul, [place] [address] [facility] [id number] [address] [place] [address] Jul, Anxiety F41.9 [facility] [address] [facility] [id number] [address] [place] [address] Jul, Thoracic back pain, unspecif ied back pain laterality, unspecified chronicity M54.6 and Anxiety F41.9 [facility] [address] [id number] [address] [place] [address] Jun, Thoracic back pain, unspecif ied back pain laterality, unspecified chronicity M54.6 and Anxiety F41.9 [facility] [address] [id number] [address] [place] [address] May, Thoracic back pain, unspecif ied back pain laterality, unspecified chronicity M54.6 and Anxiety F41.9 [facility] [address] [id number] [address] [place] [address] Apr, Thoracic back pain, unspecif ied back pain laterality, unspecified chronicity M54.6 and Anxiety F41.9 [place] [address] [id number] [address] [place] [address] Mar, [place] [address] [id number] [address] [place] [address] Mar, Thoracic back pain, unspecif ied back pain laterality, unspecified chronicity M54.6 and Anxiety F41.9 [place] [address] [id number] [address] [place] [address] Mar, Thoracic back pain, unspecif ied back pain laterality, unspecified chronicity M54.6 ; HTN (hypertension) I10 ; Hyperlipidemia E78.5 and Anxiety F41.9 [place] [address] [id number] [address] [place] [address] Feb, Thoracic back pain, unspecif ied back pain laterality, unspecified chronicity M54.6 and Anxiety F41.9 [facility] [address] [id number] [address] [place] [address] Nov, [facility] [address] [id number] [address] [place] [address] Oct, [facility] [address] [facility] [id number] [address] [place] [address] Oct, Thoracic back pain, unspecif ied back pain laterality, unspecified chronicity M54.6 [facility] [address] [place] [id number] [address] [place] [address] Oct, HTN (hypertension) I10 ; Con stipation K59.00 ; Hyperlipidemia E78.5 ; Thoracic back pain, unspecified back pain laterality, unspecified chronicity M54.6 ; Chronic pain G89.29 ; Anxiety F41.9 ; Chronic kidney failure N18.9 ; Environmental allergies Z91.09 ; Vitamin D deficiency E55.9 and Primary insomnia F51.01 [facility] [address] [facility] [id number] [address] [place] [address] Sep, Anxiety F41.9 [facility] [address] [facility] [id number] [address] [place] [address] Sep, [facility] [address] [place] [id number] [address] [place] [address] August, Anxiety F41.9 [facility] [address] [facility] [id number] [address] [place] [address] August, [facility] [address] [place] [id number] [address] [place] [address] Jul, Anxiety F41.9 [facility] [address] [facility] [id number] [address] [place] [address] Jul, [facility] [address] [facility] [id number] [address] [place] [address] Jun, Anxiety F41.9 [facility] [address] [facility] [id number] [address] [place] [address] Jun, [facility] [address] [facility] [id number] [address] [place] [address] May, [facility] [address] [facility] [id number] [address] [place] [address] May, [facility] [address] [place] [id number] [address] [place] [address] May, [facility] [address] [facility] [id number] [address] [place] [address] Apr, [facility] [address] [facility] [id number] [address] [place] [address] Apr, [facility] [address] [facility] [id number] [address] [place] [address] Apr, Anxiety F41.9 [facility] [address] [facility] [id number] [address] [place] [address] Apr, Anxiety F41.9 [facility] [address] [facility] [id number] [address] [place] [address] Apr, [facility] [address] [facility] [id number] [address] [place] [address] Mar, HTN (hypertension) I10 ; Phillip mor R25.1 ; Hypercholesterolemia E78.0 ; Constipation K59.00 ; Chronic pain G89.29 ; Hyperlipidemia E78.5 ; Insomnia G47.00 ; Anxiety F41.9 and Thoracic back pain, unspecified back pain laterality, unspecified chronicity M54.6 [facility] [address] [facility] [id number] [address] [place] [address] Mar, Tremor R25.1 ; HTN (hyperten stas) I10 ; Hypercholesterolemia E78.0 ; Constipation K59.00 ; Chronic pain G89.29 ; Hyperlipidemia E78.5 ; Insomnia G47.00 ; Anxiety F41.9 and Thoracic back pain, unspecified back pain laterality, unspecified chronicity M54.6 [facility] [address] [facility] [id number] [address] [place] [address] Mar, [facility] [address] [place] [id number] [address] [place] [address] Mar, [facility] [address] [facility] [id number] [address] [place] [address] Feb, [facility] [address] [place] [id number] [address] [place] [id number] 13 Jan, 2016 [facility] [address] [id number] [address] [place] [id number] 10 Jan, 2016 [facility] [address] [id number] [address] [place] [id number] 15 Dec, 2015 [facility] [address] [id number] [address] [place] [phone] Nov, [facility] [address] [id number] [address] [place] [id number] Nov, [facility] [address] [id number] [address] [place] [phone] Oct, Anxiety F41.9 [facility] [address] [facility] [id number] [address] [place] [id number] Oct, Chronic pain G89.29 [facility] [address] [id number] [address] [place] [id number] Sep, [facility] [address] [id number] [address] [place] [id number] Sep, [facility] [address] [id number] [address] [place] [id number] Sep, [facility] [address] [id number] [address] [place] [id number] Sep, [facility] [address] [id number] [address] [place] [id number] Sep, Chronic pain syndrome G89.4 [facility] [address] [id number] [address] [place] [id number] 15 Sep, 2015 HTN (hypertension) I10 ; Chr onic pain G89.29 ; Hypercholesterolemia E78.0 ; Chronic kidney failure N18.9 ; Constipation, unspecified constipation type K59.00 ; Anxiety F41.9 and Thoracic back pain, unspecified back pain laterality, unspecified chronicity M54.6 [facility] [address] [id number] [address] [place] [id number] August, Chronic pain syndrome G89.4 [facility] [address] [id number] [address] [place] [id number] August, Chronic pain syndrome G89.4 [facility] [facility] [address] [id number] [address] [place] [address] Jul, Anxiety disorder, unspecifie d F41.9 and Chronic pain syndrome G89.4 [facility] [address] [id number] [address] [place] [address] Jul, Insomnia, unspecified G47.00 and Chronic pain syndrome G89.4 [facility] [address] [id number] [address] [place] [address] Jul, Allergic rhinitis J30.9 [facility] [address] [id number] [address] [place] [address] Jul, Constipation, unspecified K5 9.00 [facility] [address] [id number] [address] [place] [address] Jul, [facility] [address] [id number] [address] [place] [address] Jun, [facility] [address] [id number] [address] [place] [address] Jun, [facility] [address] [id number] [address] [place] [address] Jun, [facility] [address] [id number] [address] [place] [address] Jun, [facility] [address] [id number] [address] [place] [address] Jun, [facility] [address] [facility] [id number] [address] [place] [address] Jun, [facility] [address] [facility] [id number] [address] [place] [address] May, [facility] [address] [facility] [id number] [address] [place] [address] May, [facility] [id number] [place] [address] May, Anxiety F41.9 ; Insomnia G47 .00 ; Hyperlipidemia E78.5 ; Chronic pain G89.29 ; HTN (hypertension) I10 ; Environmental allergies V15.09 and Constipation 564.00 [facility] [address] [facility] [id number] [address] [place] [address] Apr, [facility] [address] [facility] [id number] [address] [place] [address] Apr, [facility] [address] [id number] [address] [place] [address] Apr, [facility] [address] [id number] [address] [place] [address] Mar, [facility] [address] [id number] [address] [place] [address] Mar, [facility] [address] [id number] [address] [place] [address] Mar, [facility] [id number] [place] [address] Feb, [facility] [address] [id number] [address] [place] [address] Feb, [facility] [address] [id number] [address] [place] [address] Feb, [facility] [address] [id number] [address] [place] [address] Jan, HTN (hypertension) I10 ; Con stipation K59.00 ; Chronic pain G89.29 ; Hyperlipidemia E78.5 ; Hypercholesterolemia E78.0 ; Insomnia G47.00 and Anxiety F41.9 [facility] [address] [id number] [address] [place] [address] Jan, [facility] [address] [facility] [id number] [address] [place] [address] Dec, [facility] [address] [facility] [id number] [address] [place] [address] Nov, [facility] [address] [facility] [id number] [address] [place] [address] Oct, Chronic kidney disease, unsp ecified 585.9 ; Chronic pain syndrome 338.4 ; Hyperlipidemia 272.4 and Essential hypertension 401.9 [facility] [address] [facility] [id number] [address] [place] [address] Oct, Chronic kidney disease 585.9 [facility] [address] [facility] [id number] [address] [place] [address] Oct, [facility] [address] [id number] [address] [place] [address] Oct, Chronic kidney disease, unsp ecified 585.9 ; Hypercalcemia 275.42 ; Hyperlipidemia 272.4 ; Essential hypertension 401.9 ; Chronic pain syndrome 338.4 ; Insomnia 780.52 ; Constipation 564.00 ; Environmental allergies V15.09 and Anxiety 300.00 [facility] [address] [facility] [id number] [address] [place] [address] Oct, Chronic kidney disease 585.9 [facility] [address] [facility] [id number] [address] [place] [address] Oct, [facility] [address] [id number] [address] [place] [address] 14 Oct, 2014 Chronic kidney disease 585.9 and Hyperlipidemia 272.4 [facility] [address] [facility] [id number] [address] [place] [address] Oct, [facility] [address] [facility] [id number] [address] [place] [address] Oct, [facility] [address] [id number] [address] [place] [address] Sep, [facility] [address] [id number] [address] [place] [address], [place] [address] Sep, [facility] [address] [id number] [address] [place] [address], [place] [address] Sep, Chronic kidney disease 585.9 and Hyperlipidemia 272.4 [facility] [address] [id number] [address] [place] [address], [place] [address] Sep, [facility] [address] [id number] [address] [place] [address], [place] [address] August, [facility] [address] [id number] [address] [place] [address], [place] [address] August, [facility] [address] [id number] [address] [place] [address], [place] [address] Jul, [facility] [address] [id number] [address] [place] [address], [place] [address] Jul, [facility] [address] [id number] [address] [place] [address], [place] [address] Jun, [facility] [address] [id number] [address] [place] [address], [place] [address] Jun, [facility] [address] [id number] [address] [place] [address], [place] [address] Jun, [facility] [address] [id number] [address] [place] [address] Jun, [facility] [address] [id number] [address] [place] [address] Jun, [facility] [address] [id number] [address] [place] [address] Jun, [facility] [address] [id number] [address] [place] [address], [place] [address] Jun, [facility] [address] [id number] [address] [place] [address], [place] [address] Jun, [facility] [address] [id number] [address] [place] [address], [place] [address] 16 May, 2014 [facility] [address] [id number] [address] [place] [address], [place] [address] May, [facility] [address] [id number] [address] [place] [address], [place] [address] May, [facility] [address] [id number] [address] [place] [address], [place] [address] May, [facility] [address] [id number] [address] [place] [address], [place] [address] Apr, [facility] [address] [id number] [address] [place] [address], [place] [address] Apr, [facility] [address] [id number] [address] [place] [address], [place] [address] Apr, [facility] [address] [id number] [address] [place] [address], [place] [address] Apr, [facility] [address] [id number] [address] [place] [address], [place] [address] Apr, [facility] [address] [id number] [address] [place] [address], [place] [address] Apr, [facility] [address] [id number] [address] [place] [address], [place] [address] Apr, [facility] [address] [id number] [address] [place] [address], [place] [address] Apr, [facility] [address] [id number] [address] [place] [address], [place] [address] Apr, [facility] [address] [id number] [address] [place] [address], [place] [address] Apr, [facility] [address] [id number] [address] [place] [address], [place] [address] Apr, [facility] [address] [id number] [address] [place] [address], [place] [address] Mar, [facility] [address] [id number] [address] [place] [address], [place] [address] Mar, [facility] [address] [id number] [address] [place] [address], [place] [address] Feb, [facility] [address] [id number] [address] [place] [address], [place] [address] Feb, [facility] [address] [id number] [address] [place] [address], [place] [address] Feb, [facility] [address] [id number] [address] [place] [address], [place] [address] Feb, [facility] [address] [id number] [address] [place] [address], [place] [address] Feb, [facility] [address] [id number] [address] [place] [address], [place] [address] Feb, [facility] [address] [id number] [address] [place] [address], [place] [address] Feb, [facility] [address] [id number] [address] [place] [address], [place] [address] Feb, [facility] [address] [id number] [address] [place] [address], [place] [address] Feb, [facility] [address] [id number] [address] [place] [address], [place] [address] Feb, [facility] [address] [id number] [address] [place] [address] Jan, [facility] [address] [id number] [address] [place] [address], [place] [address] Jan, [facility] [address] [id number] [address] [place] [address], [place] [address] Jan, [facility] [address] [id number] [address] [place] [address], [place] [address] Jan, [facility] [address] [id number] [address] [place] [address], [place] [address] 24 Jan, 2014 [facility] [address] [id number] [address] [place] [address], [place] [address] 24 Jan, 2014 [facility] [address] [id number] [address] [place] [address], [place] [address] Jan, [facility] [address] [id number] [address] [place] [address], [place] [address] 17 Jan, 2014 [facility] [address] [id number] [address] [place] [address], [place] [address] 16 Jan, 2014 [facility] [address] [id number] [address] [place] [address], [place] [address] Jan, [facility] [address] [id number] [address] [place] [address], [place] [address] Jan, [facility] [address] [id number] [address] [place] [address], [place] [address] 26 Dec, 2013 [facility] [address] [id number] [address] [place] [address], [place] [address] 26 Dec, 2013 [facility] [address] [id number] [address] [place] [address], [place] [address] 19 Dec, 2013 [facility] [address] [id number] [address] [place] [address], [place] [address] 19 Dec, 2013 [facility] [address] [id number] [address] [place] [address], [place] [address] 18 Dec, 2013 [facility] [address] [id number] [address] [place] [address], [place] [address] 18 Dec, 2013 [facility] [address] [id number] [address] [place] [address], [place] [address] 03 Dec, 2013 [facility] [address] [id number] [address] [place] [address], [place] [address] 03 Dec, 2013 [facility] [address] [id number] [address] [place] [address], [place] [address] Nov, [facility] [address] [id number] [address] [place] [address], [place] [address] Nov, [facility] [address] [id number] [address] [place] [address], [place] [address] Nov, [facility] [address] [id number] [address] [place] [address], [place] [address] Nov, [facility] [address] [id number] [address] [place] [address], [place] [address] Nov, [facility] [address] [id number] [address] [place] [address], [place] [address] Nov, [facility] [address] [id number] [address] [place] [address], [place] [address] Nov, [facility] [address] [id number] [address] [place] [address], [place] [address] Nov, [facility] [address] [id number] [address] [place] [address], [place] [address] Oct, [facility] [address] [id number] [address] [place] [address], [place] [address] Oct, [facility] [address] [id number] [address] [place] [address], [place] [address] Oct, [facility] [address] [id number] [address] [place] [address], [place] [address] Oct, [facility] [address] [id number] [address] [place] [address], [place] [address] Sep, [facility] [address] [id number] [address] [place] [address], [place] [address] Sep, [facility] [address] [id number] [address] [place] [address], [place] [address] Sep, [facility] [address] [id number] [address] [place] [address], [place] [address] Sep, [facility] [address] [id number] [address] [place] [address], [place] [address] Sep, [facility] [address] [id number] [address] [place] [address], [place] [address] Sep, [facility] [address] [id number] [address] [place] [address], [place] [address] Sep, [facility] [address] [id number] [address] [place] [address], [place] [address] Sep, [facility] [address] [id number] [address] [place] [address], [place] [address] August, [facility] [address] [id number] [address] [place] [address], [place] [address] August, [facility] [address] [id number] [address] [place] [address], [place] [address] August, [facility] [address] [id number] [address] [place] [address], [place] [address] August, [facility] [address] [id number] [address] [place] [address], [place] [address] August, [facility] [address] [id number] [address] [place] [address], [place] [address] August, [facility] [address] [id number] [address] [place] [address], [place] [address] August, [facility] [address] [id number] [address] [place] [address], [place] [address] August, [facility] [address] [id number] [address] [place] [address], [place] [address] August, [facility] [address] [id number] [address] [place] [address], [place] [address] August, [facility] [address] [id number] [address] [place] [address], [place] [address] Jul, [facility] [address] [id number] [address] [place] [address], [place] [address] Jul, [facility] [address] [id number] [facility] [place] [address] Jul, [facility] [address] [id number] [facility] [place] [address] Jul, [facility] [address] [id number] [facility] [place] [address] Jul, [facility] [address] [id number] [address] [place] [address], [place] [address] Jul, [facility] [address] [id number] [address] [place] [address], [place] [address] Jul, [facility] [address] [id number] [address] [place] [address], [place] [address] Jul, [facility] [address] [id number] [address] [place] [address], [place] [address] Jun, [facility] [address] [id number] [address] [place] [address], [place] [address] Jun, [facility] [address] [id number] [address] [place] [address], [place] [address] Jun, [facility] [address] [id number] [address] [place] [address], [place] [address] Jun, [facility] [address] [id number] [address] [place] [address], [place] [address] Jun, [facility] [address] [id number] [address] [place] [address], [place] [address] Jun, [facility] [address] [id number] [address] [place] [address], [place] [address] May, [facility] [address] [id number] [address] [place] [address], [place] [address] May, [facility] [address] [id number] [address] [place] [address], [place] [address] May, [facility] [address] [id number] [address] [place] [address], [place] [address] May, [facility] [address] [id number] [address] [place] [address], [place] [address] May, [facility] [address] [id number] [address] [place] [address], [place] [address] May, [facility] [address] [id number] [address] [place] [address], [place] [address] May, [facility] [address] [id number] [address] [place] [address], [place] [address] Apr, [facility] [address] [id number] [address] [place] [address], [place] [address] Apr, [facility] [address] [id number] [address] [place] [address], [place] [address] Apr, [facility] [address] [id number] [address] [place] [address], [place] [address] Apr, [facility] [address] [id number] [address] [place] [address], [place] [address] Apr, [facility] [address] [id number] [address] [place] [address], [place] [address] Apr, [facility] [address] [id number] [address] [place] [address], [place] [address] Mar, [facility] [address] [id number] [address] [place] [address], [place] [address] Mar, [facility] [address] [id number] [address] [place] [address], [place] [address] Mar, [facility] [address] [id number] [address] [place] [address], [place] [address] Mar, [facility] [address] [id number] [address] [place] [address], [place] [address] Mar, [facility] [address] [id number] [address] [place] [address], [place] [address] Mar, [facility] [address] [id number] [address] [place] [address], [place] [address] 16 Mar, 2013 [facility] [address] [id number] [address] [place] [address], [place] [address] 16 Mar, 2013 [facility] [address] [id number] [address] [place] [address], [place] [address] Mar, [facility] [address] [id number] [address] [place] [address], [place] [address] Mar, [facility] [address] [id number] [address] [place] [address], [place] [address] Feb, [facility] [address] [id number] [address] [place] [address], [place] [address] Feb, [facility] [address] [id number] [address] [place] [address], [place] [address] Feb, [facility] [address] [id number] [address] [place] [address], [place] [address] Feb, [facility] [address] [id number] [address] [place] [address], [place] [address] Feb, [facility] [address] [id number] [address] [place] [address], [place] [address] Feb, [facility] [address] [id number] [address] [place] [address], [place] [address] Feb, [facility] [address] [id number] [address] [place] [address], [place] [address] Feb, [facility] [address] [id number] [address] [place] [address], [place] [address] Feb, [facility] [address] [id number] [address] [place] [address], [place] [address] Feb, [facility] [address] [id number] [address] [place] [address], [place] [address] Jan, [facility] [address] [id number] [address] [place] [address], [place] [address] Jan, [facility] [address] [id number] [address] [place] [address], [place] [address] Jan, [facility] [address] [id number] [address] [place] [address], [place] [address] Jan, [facility] [address] [id number] [address] [place] [address], [place] [address] Jan, [facility] [address] [id number] [address] [place] [address], [place] [address] Jan, [facility] [address] [id number] [address] [place] [address], [place] [address] Jan, [facility] [address] [id number] [address] [place] [address], [place] [address] Jan, [facility] [address] [id number] [address] [place] [address], [place] [address] Jan, [facility] [address] [id number] [address] [place] [address], [place] [address] Dec, [facility] [address] [id number] [address] [place] [address], [place] [address] Dec, [facility] [address] [id number] [address] [place] [address], [place] [address] Dec, [facility] [address] [id number] [address] [place] [address], [place] [address] Dec, [facility] [address] [id number] [address] [place] [address], [place] [address] Nov, [facility] [address] [id number] [address] [place] [address], [place] [address] Nov, [facility] [address] [id number] [address] [place] [address], [place] [address] Nov, [facility] [address] [id number] [address] [place] [address], [place] [address] Nov, [facility] [address] [id number] [address] [place] [address], [place] [address] Nov, [facility] [address] [id number] [address] [place] [address], [place] [address] Nov, [facility] [address] [id number] [address] [place] [address], [place] [address] Oct, [facility] [address] [id number] [address] [place] [address], [place] [address] Oct, [facility] [address] [id number] [address] [place] [address], [place] [address] Oct, [facility] [address] [id number] [address] [place] [address], [place] [address] Oct, [facility] [address] [id number] [address] [place] [address], [place] [address] Sep, [facility] [address] [id number] [address] [place] [address], [place] [address] Sep, [facility] [address] [id number] [address] [place] [address], [place] [address] Sep, [facility] [address] [id number] [address] [place] [address], [place] [address] Sep, [facility] [address] [id number] [address] [place] [address], [place] [address] Sep, [facility] [address] [id number] [address] [place] [address], [place] [address] August, [facility] [address] [id number] [address] [place] [address], [place] [address] August, [facility] [address] [id number] [address] [place] [address], [place] [address] Jul, [facility] [address] [id number] [address] [place] [address], [place] [address] Jul, [facility] [address] [id number] [address] [place] [address], [place] [address] 15 Jul, 2012 [facility] [address] [id number] [address] [place] [address], [place] [address] Jul, [facility] [address] [id number] [address] [place] [address], [place] [address] Jul, [facility] [address] [id number] [address] [place] [address], [place] [address] 26 Jun, 2012 [facility] [address] [id number] [address] [place] [address], [place] [address] Jun, [facility] [address] [id number] [address] [place] [address], [place] [address] 15 Jun, 2012 [facility] [address] [id number] [address] [place] [address], [place] [address] 06 Jun, 2012 [facility] [address] [id number] [address] [place] [address], [place] [address] Jun, [facility] [address] [id number] [address] [place] [address], [place] [address] 28 May, 2012 [facility] [address] [id number] [address] [place] [address], [place] [address] 27 May, 2012 [facility] [address] [id number] [address] [place] [address], [place] [address] 25 May, 2012 [facility] [address] [id number] [address] [place] [address], [place] [address] May, [facility] [address] [id number] [address] [place] [address], [place] [address] 20 May, 2012 [facility] [address] [id number] [address] [place] [address], [place] [address] 14 May, 2012 [facility] [address] [id number] [address] [place] [address], [place] [address] 13 May, 2012 [facility] [address] [id number] [address] [place] [address], [place] [address] 08 May, 2012 [facility] [address] [id number] [address] [place] [address], [place] [address] 04 May, 2012 [facility] [address] [id number] [address] [place] [address], [place] [address] Apr, [facility] [address] [id number] [address] [place] [address], [place] [address] Apr, [facility] [address] [id number] [address] [place] [address], [place] [address] Apr, [facility] [address] [id number] [address] [place] [address], [place] [address] Apr, [facility] [address] [id number] [address] [place] [address], [place] [address] Apr, [facility] [address] [id number] [address] [place] [address], [place] [address] Mar, [facility] [address] [id number] [address] [place] [address], [place] [address] Mar, [facility] [address] [id number] [address] [place] [address], [place] [address] Mar, [facility] [address] [id number] [address] [place] [address], [place] [address] Mar, [facility] [address] [id number] [address] [place] [address], [place] [address] Mar, [facility] [address] [id number] [address] [place] [address], [place] [address] Mar, [facility] [address] [id number] [address] [place] [address], [place] [address] Mar, [facility] [address] [id number] [address] [place] [address], [place] [address] Mar, [facility] [address] [id number] [address] [place] [address], [place] [address] Mar, [facility] [address] [id number] [address] [place] [address], [place] [address] Mar, [facility] [address] [id number] [address] [place] [address], [place] [address] 30 Feb, 2012 [facility] [address] [id number] [address] [place] [address], [place] [address] Feb, [facility] [address] [id number] [address] [place] [address], [place] [address] Feb, [facility] [address] [id number] [address] [place] [address], [place] [address] Feb, [facility] [address] [id number] [address] [place] [address], [place] [address] Feb, [facility] [address] [id number] [address] [place] [address], [place] [address] Feb, [facility] [address] [id number] [address] [place] [address], [place] [address] Feb, [facility] [address] [id number] [address] [place] [address], [place] [address] Feb, [facility] [address] [id number] [address] [place] [address], [place] [address] Feb, [facility] [address] [id number] [address] [place] [address], [place] [address] 16 Feb, 2012 [facility] [address] [id number] [address] [place] [address], [place] [address] Feb, [facility] [address] [id number] [address] [place] [address], [place] [address] Feb, [facility] [address] [id number] [address] [place] [address], [place] [address] Feb, [facility] [address] [id number] [address] [place] [address], [place] [address] Feb, [facility] [address] [id number] [address] [place] [address], [place] [address] Feb, [facility] [address] [id number] [address] [address] 08 Feb, 2012 [facility] [address] [id number] [address] [place] [address], [place] [address] 07 Feb, 2012 [facility] [address] [id number] [address] [place] [address], [place] [address] Feb, [facility] [address] [id number] [address] [place] [address], [place] [address] Jan, [facility] [address] [id number] [address] [place] [address] Jan, [facility] [address] [id number] [address] [place] [address], [place] [address] Jan, [facility] [address] [id number] [address] [place] [address] Jan, [facility] [address] [id number] [address] [place] [address] Jan, [facility] [address] [id number] [address] [place] [address] Jan, [facility] [address] [id number] [address] [place] [address] Jan, [facility] [address] [id number] [address] [place] [address] Jan, [facility] [address] [id number] [address] [place] [address] 08 Jan, 2012 [facility] [address] [id number] [address] [place] [address] Jan, [facility] [address] [id number] [address] [place] [address], [place] [address] 24 Dec, 2011 [facility] [address] [id number] [address] [place] [address] 18 Dec, 2011 [facility] [address] [id number] [address] [place] [address] 04 Dec, 2011 [facility] [address] [id number] [address] [place] [address], [place] [address] Dec, [facility] [address] [id number] [address] [place] [address], [place] [address] Nov, [facility] [address] [id number] [address] [place] [address], [place] [address] Nov, [facility] [address] [id number] [address] [place] [address], [place] [address] Nov, [facility] [address] [id number] [address] [place] [address], [place] [address] Nov, [facility] [address] [id number] [address] [place] [address], [place] [address] Nov, [facility] [address] [id number] [address] [place] [address], [place] [address] Nov, [facility] [address] [id number] [address] [place] [address], [place] [address] Oct, [facility] [address] [id number] [address] [place] [address], [place] [address] Oct, [facility] [address] [id number] [address] [place] [address], [place] [address] Oct, [facility] [address] [id number] [address] [place] [address], [place] [address] Oct, [facility] [address] [id number] [address] [place] [address], [place] [address] Oct, [facility] [address] [id number] [address] [place] [address], [place] [address] Sep, [facility] [address] [id number] [address] [place] [address], [place] [address] Sep, [facility] [address] [id number] [address] [place] [address], [place] [address] Sep, [facility] [address] [id number] [address] [place] [address], [place] [address] Sep, [facility] [address] [id number] [address] [place] [address], [place] [address] Sep, [facility] [address] [id number] [address] [place] [address], [place] [address] August, [facility] [address] [id number] [address] [place] [address], [place] [address] August, [facility] [address] [id number] [address] [place] [address], [place] [address] August, [facility] [address] [id number] [address] [place] [address], [place] [address] August, [facility] [address] [id number] [address] [place] [address], [place] [address] Jul, [facility] [address] [id number] [address] [place] [address], [place] [address] Jul, [facility] [address] [id number] [address] [place] [address], [place] [address] Jul, [facility] [address] [id number] [address] [place] [address], [place] [address] Jul, [facility] [address] [id number] [address] [place] [address], [place] [address] Jul, [facility] [address] [id number] [address] [place] [address], [place] [address] Jul, [facility] [address] [id number] [address] [place] [address], [place] [address] 11 Jul, 2011 [facility] [address] [id number] [address] [place] [address], [place] [address] 10 Jul, 2011 [facility] [address] [id number] [address] [place] [address], [place] [address] 09 Jul, 2011 [facility] [address] [id number] [address] [place] [address], [place] [address] 07 Jul, 2011 [facility] [address] [id number] [address] [place] [address], [place] [address] 05 Jul, 2011 [facility] [address] [id number] [address] [place] [address], [place] [address] Jul, [facility] [address] [id number] [address] [place] [address], [place] [address] Jul, [facility] [address] [id number] [address] [place] [address], [place] [address] Jul, [facility] [address] [id number] [address] [place] [address], [place] [address] 28 Jun, 2011 [facility] [address] [id number] [address] [place] [address], [place] [address] 27 Jun, 2011 [facility] [address] [id number] [address] [place] [address], [place] [address] 20 Jun, 2011 [facility] [address] [id number] [address] [place] [address], [place] [address] 16 Jun, 2011 [facility] [address] [id number] [address] [place] [address], [place] [address] May, [facility] [address] [id number] [address] [place] [address], [place] [address] 16 May, 2011 [facility] [address] [id number] [address] [place] [address], [place] [address] May, [facility] [address] [id number] [address] [place] [address], [place] [address] Apr, [facility] [address] [id number] [address] [place] [address], [place] [address] 18 Apr, 2011 [facility] [address] [id number] [address] [place] [address], [place] [address] 13 Apr, 2011 [facility] [address] [id number] [address] [place] [address], [place] [address] Apr, [facility] [address] [id number] [address] [place] [address], [place] [address] Apr, [facility] [address] [id number] [address] [place] [address], [place] [address] Mar, [facility] [address] [id number] [address] [place] [address], [place] [address] Mar, [facility] [address] [id number] [address] [place] [address], [place] [address] Mar, [facility] [address] [id number] [address] [place] [address], [place] [address] Mar, [facility] [address] [id number] [address] [place] [address], [place] [address] 16 Mar, 2011 [facility] [address] [id number] [address] [place] [address], [place] [address] Mar, [facility] [address] [id number] [address] [place] [address], [place] [address] Mar, [facility] [address] [id number] [address] [place] [address], [place] [address] Feb, [facility] [address] [id number] [address] [place] [address], [place] [address] Feb, [facility] [address] [id number] [address] [place] [address], [place] [address] Feb, [facility] [address] [id number] [address] [place] [address], [place] [address] Feb, [facility] [address] [id number] [address] [place] [address], [place] [address] 16 Feb, 2011 [facility] [address] [id number] [address] [place] [address], [place] [address] 14 Feb, 2011 [facility] [address] [id number] [address] [place] [address], [place] [address] 10 Feb, 2011 [facility] [address] [id number] [address] [place] [address], [place] [address] 31 Jan, 2011 [facility] [address] [id number] [address] [place] [address], [place] [address] 31 Jan, 2011 [facility] [address] [id number] [address] [place] [address], [place] [address] 31 Jan, 2011 [facility] [address] [id number] [address] [place] [address], [place] [address] 18 Jan, 2011 [facility] [address] [id number] [address] [place] [address], [place] [address] 17 Jan, 2011 [facility] [address] [id number] [address] [place] [address], [place] [address] 17 Jan, 2011 [facility] [address] [id number] [address] [place] [address], [place] [address] 17 Jun, 2010 [facility] [address] [id number] [address] [place] [address], [place] [address] 30 Mar, 2010 [facility] [address] [id number] [address] [place] [address], [place] [address] 20 Mar, 2010 [facility] [address] [id number] [address] [place] [address], [place] [address] 14 Mar, 2010 [facility] [address] [id number] [address] [place] [address], [place] [address] 14 Mar, 2010 [facility] [address] [id number] [address] [place] [address], [place] [address] 13 Mar, 2010 [facility] [address] [id number] [address] [place] [address], [place] [address] 07 Mar, 2010 [facility] [address] [id number] [address] [place] [address], [place] [address] 02 Mar, 2010 [facility] [address] [id number] [address] [place] [address], [place] [address] Mar, [facility] [address] [id number] [address] [place] [address], [place] [address] 30 Feb, 2010 [facility] [address] [id number] [address] [place] [address], [place] [address] Feb, [facility] [address] [id number] [address] [place] [address], [place] [address] 17 Feb, 2010 [facility] [address] [id number] [address] [place] [address], [place] [address] 17 Feb, 2010 [facility] [address] [id number] [address] [place] [address], [place] [address] 16 Feb, 2010 [facility] [address] [id number] [address] [place] [address], [place] [address] 08 Feb, 2010 [facility] [address] [id number] [address] [place] [address], [place] [address] 04 Feb, 2010 [facility] [address] [id number] [address] [place] [address], [place] [address] Feb, [facility] [address] [id number] [address] [place] [address], [place] [address] 28 Jan, 2010 [facility] [address] [id number] [address] [place] [address], [place] [address] Jan, [facility] [address] [id number] [address] [place] [address], [place] [address] 25 Jan, 2010 [facility] [address] [id number] [address] [place] [address], [place] [address] 18 Jan, 2010 [facility] [address] [id number] [address] [place] [address], [place] [address] 29 Mar, 2009 [facility] [address] [id number] [address] [place] [address], [place] [id number] 22 Mar, 2009 [facility] [address] [id number] [address] [place] [address], [place] [address] 19 Mar, 2009 [facility] [address] [id number] [address] [place] [address], [place] [address] 19 Mar, [address] [facility] [address] [id number] [address] [place] [address], [place] [address] 14 Mar, 2009 [facility] [address] [id number] [address] [place] [address], [place] [address] Mar, [facility] [address] [facility] [id number] [address] [place] [id number] Feb, [facility] [address] [facility] [id number] [address] [place] [phone] Feb, [facility] [address] [facility] [id number] [address] [place] [phone] Jan, [facility] [address] [facility] [id number] [address] [place] [id number] Sep, [facility] [address] [facility] [id number] [address] [place] [id number] May, IMMUNIZATIONS No Known Immunizations SOCIAL HISTORY [...] Surgical History Left ear surgery Hospitalization History [facility] in [place]- Spontane ous Pneumothorax Hospitalization History [facility]- Colon resection Hospital[facility] History [facility] - diarrhea/ couldnt urin ate nov 2017 Hospitalization History pain /hip to foot right side 10/16/19 19
--- OUTSIDE RECORDS SUMMARY | 2019-08-28 09:06 | XMS REPORT ---
Author Author Dixon Lundberg Doctor Organization [facility] Address Unknown Phone Unavailable Care Team Providers Care Warehouse Unloader Name Role Phone Migration, Doctor Unavailable Unavailable PROBLEMS Type Condition ICD9-CM Code [id number] Code Onset Dates Condition S tatus SNOMED Code Problem Insomnia G47.00 Active 356399617 Problem Anxiety F41.9 Active 15559202 Problem HTN (hypertension) I10 Active 3 2666802 Problem Hyperlipidemia E78.5 Active 04356 004 Problem Thoracic back pain, unspecif ied back pain laterality, unspecified chronicity M54.6 Active 533158149 Problem Vitamin D deficiency E55.9 Active 01411738 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 95547716 Problem Chronic pain G89.29 Active 8046539 1 Problem Schizophrenia, unspecified type F20.9 Active 42435501 Problem Constipation K59.00 Active 9150502 8 Problem Environmental allergies Z91.09 Active 692226344 Problem Primary insomnia F51.01 Active 397 2004 Problem Chronic kidney disease, stage III (moderate) N18.3 Active 962351071 Problem Vision loss H54.7 Active 60546919 1 ALLERGIES No Information ENCOUNTERS Encounter Location Date Diagnosis [place] [address] [address] [facility] [id number] [address] [place] [id number] Nov, Thoracic back pain, unspecif ied back pain laterality, unspecified chronicity M54.6 [facility] [address] [facility] [id number] [address] [place] [id number] Nov, Anxiety F41.9 and Thoracic b ack pain, unspecified back pain laterality, unspecified chronicity M54.6 [facility] [address] [facility] [id number] [address] [place] [phone] Nov, [facility] [address] [facility] [id number] [address] [place] [phone] Nov, [facility] [address] [id number] [address] [place] [phone] Nov, [facility] [address] [id number] [address] [place] [id number] Oct, Thoracic back pain, unspecif ied back pain laterality, unspecified chronicity M54.6 [facility] [address] [id number] [address] [place] [id number] Oct, Anxiety F41.9 and Thoracic b ack pain, unspecified back pain laterality, unspecified chronicity M54.6 [facility] [address] [id number] [address] [place] [phone] Oct, Schizophrenia, unspecified t ype F20.9 and Acute kidney injury N17.9 [facility] [address] [id number] [address] [place] [phone] Oct, [facility] [address] [id number] [address] [place] [phone] Oct, [facility] [address] [id number] [address] [place] [phone] Oct, Thoracic back pain, unspecif ied back pain laterality, unspecified chronicity M54.6 [facility] [address] [id number] [address] [place] [id number] Oct, [facility] [address] [id number] [address] [place] [id number] Oct, [facility] [address] [id number] [address] [place] [phone] Sep, Anxiety F41.9 [facility] [address] [id number] [address] [place] [id number] Sep, [facility] [address] [id number] [address] [place] [id number] Sep, Thoracic back pain, unspecif ied back pain laterality, unspecified chronicity M54.6 [facility] [address] [id number] [address] [place] [phone] Sep, [facility] [address] [facility] [id number] [address] [place] [phone] Sep, [facility] [address] [facility] [id number] [address] [place] [id number] Sep, [facility] [address] [facility] [id number] [address] [place] [phone] Sep, [facility] [address] [id number] [address] [place] [phone] Sep, [facility] [address] [facility] [id number] [address] [place] [id number] Sep, [facility] [address] [facility] [id number] [address] [place] [address] Sep, Chronic pain G89.29 ; Chroni c kidney disease, stage III (moderate) N18.3 ; Hyperlipidemia E78.5 and Insomnia G47.00 [facility] [address] [facility] [id number] [address] [place] [id number] Sep, Thoracic back pain, unspecif ied back pain laterality, unspecified chronicity M54.6 [facility] [address] [facility] [id number] [address] [place] [id number] August, Anxiety F41.9 [facility] [address] [facility] [id number] [address] [place] [id number] August, Thoracic back pain, unspecif ied back pain laterality, unspecified chronicity M54.6 and Anxiety F41.9 [facility] [address] [facility] [id number] [address] [place] [phone] August, 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 [facility] [address] [facility] [id number] [address] [place] [phone] August, 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 [facility] [address] [facility] [id number] [address] [place] [phone] August, [facility] [address] [facility] [id number] [address] [place] [phone] August, [facility] [address] [id number] [address] [place] [phone] August, Thoracic back pain, unspecif ied back pain laterality, unspecified chronicity M54.6 [facility] [address] [id number] [address] [place] [phone] August, [facility] [address] [id number] [address] [place] [phone] August, Anxiety F41.9 and Thoracic b ack pain, unspecified back pain laterality, unspecified chronicity M54.6 [facility] [address] [id number] [address] [place] [phone] Jul, [facility] [address] [id number] [address] [place] [id number] Jul, Thoracic back pain, unspecif ied back pain laterality, unspecified chronicity M54.6 [facility] [address] [id number] [address] [place] [phone] Jun, Anxiety F41.9 and Thoracic b ack pain, unspecified back pain laterality, unspecified chronicity M54.6 [facility] [address] [id number] [address] [place] [id number] Jun, Anxiety F41.9 and Thoracic b ack pain, unspecified back pain laterality, unspecified chronicity M54.6 [facility] [address] [id number] [address] [place] [id number] Jun, Thoracic back pain, unspecif ied back pain laterality, unspecified chronicity M54.6 [facility] [address] [id number] [address] [place] [id number] Jun, Anxiety F41.9 and Thoracic b ack pain, unspecified back pain laterality, unspecified chronicity M54.6 [facility] [address] [id number] [address] [place] [id number] May, [facility] [address] [id number] [address] [place] [phone] May, [facility] [address] [id number] [address] [place] [id number] 08 May, 2018 [facility] [address] [id number] [address] [place] [phone] May, Anxiety F41.9 and Encounter for medication monitoring Z51.81 [facility] [address] [id number] [address] [place] [phone] 05 May, 2018 Anxiety F41.9 and Thoracic b ack pain, unspecified back pain laterality, unspecified chronicity M54.6 [place] [address] [id number] [address] [place] [address] Apr, Hyperlipidemia 272.4 [place] [address] [id number] [address] [place] [address] Apr, Chronic pain G89.29 ; Anxiet y F41.9 ; Cervical radiculopathy M54.12 and Vision loss H54.7 [facility] [address] [id number] [address] [place] [phone] Apr, [facility] [address] [id number] [address] [place] [id number] Apr, Anxiety F41.9 and Thoracic b ack pain, unspecified back pain laterality, unspecified chronicity M54.6 [facility] [address] [id number] [address] [place] [phone] 17 Mar, 2018 [facility] [address] [id number] [address] [place] [phone] Mar, Anxiety F41.9 and Thoracic b ack pain, unspecified back pain laterality, unspecified chronicity M54.6 [facility] [address] [id number] [address] [place] [phone] Feb, Anxiety F41.9 and Thoracic b ack pain, unspecified back pain laterality, unspecified chronicity M54.6 [facility] [address] [id number] [address] [place] [id number] 07 Feb, 2018 Thoracic back pain, unspecif ied back pain laterality, unspecified chronicity M54.6 [facility] [address] [id number] [address] [place] [phone] 29 Jan, 2018 [facility] [address] [id number] [address] [place] [phone] Jan, Anxiety F41.9 and Thoracic b ack pain, unspecified back pain laterality, unspecified chronicity M54.6 [facility] [address] [id number] [address] [place] [id number] 19 Dec, 2017 Diarrhea of presumed infecti ous origin R19.7 [facility] [address] [id number] [address] [place] [id number] 19 Dec, 2017 Diarrhea of presumed infecti ous origin R19.7 [facility] [address] [id number] [address] [place] [id number] 18 Dec, 2017 Thoracic back pain, unspecif ied back pain laterality, unspecified chronicity M54.6 [facility] [address] [id number] [address] [place] [phone] 17 Dec, 2017 [facility] [address] [id number] [address] [place] [id number] 17 Dec, 2017 Anxiety F41.9 and Thoracic b ack pain, unspecified back pain laterality, unspecified chronicity M54.6 [facility] [address] [id number] [address] [place] [id number] 13 Dec, 2017 Diarrhea of presumed infecti ous origin R19.7 [facility] [address] [id number] [address] [place] [id number] 13 Dec, 2017 [facility] [address] [id number] [address] [place] [id number] 12 Dec, 2017 Anxiety F41.9 and Thoracic b ack pain, unspecified back pain laterality, unspecified chronicity M54.6 [place] [address] [id number] Dec, Anxiety F41.9 and Thoracic b ack pain, unspecified back pain laterality, unspecified chronicity M54.6 [facility] [employer] [address] [place] [id number] Dec, Diarrhea of presumed infectious origin R 19.7 ; Anxiety F41.9 ; Thoracic back pain, unspecified back pain laterality, unspecified chronicity M54.6 and HTN (hypertension) I10 [place] [address] [address] Dec, Anxiety F41.9 [facility] [employer] [address] [place] [id number] Dec, Anxiety F41.9 ; Diarrhea of presumed inf ectious origin R19.7 ; Generalized abdominal pain R10.84 and Localized edema R60.0 [place] [address] [address] [place] [id number] [address] [place] [phone] Nov, [facility] [employer] [address] [place] [id number] Nov, Anxiety F41.9 ; Urinary retention R33.9 ; Diarrhea of presumed infectious origin R19.7 ; Weakness R53.1 ; Acute kidney failure, unspecified N17.9 ; Chronic kidney disease, stage III (moderate) N18.3 and Thoracic back pain, unspecified back pain laterality, unspecified chronicity M54.6 [place] [address] [address] [place] [id number] [address] [place] [id number] Oct, Thoracic back pain, unspecif ied back pain laterality, unspecified chronicity M54.6 and Anxiety F41.9 [place] [address] [address] [place] [id number] [address] [place] [phone] Sep, Thoracic back pain, unspecif ied back pain laterality, unspecified chronicity M54.6 and Anxiety F41.9 [place] [address] [id number] [address] [place] [id number] Sep, Thoracic back pain, unspecif ied back pain laterality, unspecified chronicity M54.6 ; Anxiety F41.9 and Encounter for medication monitoring Z51.81 [facility] [address] [id number] [address] [place] [phone] August, [facility] [address] [facility] [id number] [address] [place] [id number] August, Thoracic back pain, unspecif ied back pain laterality, unspecified chronicity M54.6 and Anxiety F41.9 [place] [address] [address] [facility] [id number] [address] [place] [id number] August, Hyperlipidemia E78.5 and HTN (hypertension) I10 [place] [address] [address] [facility] [id number] [address] [place] [id number] August, [place] [address] [address] [facility] [id number] [address] [place] [address] August, Medicare welcome exam Z00.00 ; Chronic kidney failure N18.9 ; Anxiety F41.9 ; Chronic pain G89.29 ; Insomnia G47.00 ; Hyperlipidemia E78.5 ; HTN (hypertension) I10 and Thoracic back pain, unspecified back pain laterality, unspecified chronicity M54.6 [place] [id number] [id number] [address] [place] [phone] Jul, [place] [address] [facility] [id number] [address] [place] [id number] Jul, [facility] [address] [id number] [address] [place] [address] Jul, [place] [address] [address] [facility] [id number] [address] [place] [id number] Jul, Anxiety F41.9 [facility] [address] [facility] [id number] [address] [place] [id number] Jul, Thoracic back pain, unspecif ied back pain laterality, unspecified chronicity M54.6 and Anxiety F41.9 [facility] [address] [id number] [address] [place] [address] Jun, Thoracic back pain, unspecif ied back pain laterality, unspecified chronicity M54.6 and Anxiety F41.9 [facility] [address] [id number] [address] [place] [id number] May, Thoracic back pain, unspecif ied back pain laterality, unspecified chronicity M54.6 and Anxiety F41.9 [facility] [address] [id number] [address] [place] [id number] Apr, Thoracic back pain, unspecif ied back pain laterality, unspecified chronicity M54.6 and Anxiety F41.9 [place] [address] [id number] [address] [place] [id number] Mar, [place] [address] [id number] [address] [place] [id number] Mar, Thoracic back pain, unspecif ied back pain laterality, unspecified chronicity M54.6 and Anxiety F41.9 [place] [address] [id number] [address] [place] [id number] Mar, Thoracic back pain, unspecif ied back pain laterality, unspecified chronicity M54.6 ; HTN (hypertension) I10 ; Hyperlipidemia E78.5 and Anxiety F41.9 [place] [address] [id number] [address] [place] [phone] Feb, Thoracic back pain, unspecif ied back pain laterality, unspecified chronicity M54.6 and Anxiety F41.9 [facility] [address] [id number] [address] [place] [id number] Nov, [facility] [address] [id number] [address] [place] [phone] Oct, [facility] [address] [facility] [id number] [address] [place] [id number] Oct, Thoracic back pain, unspecif ied back pain laterality, unspecified chronicity M54.6 [facility] [address] [place] [id number] [address] [place] [phone] Oct, HTN (hypertension) I10 ; Con stipation K59.00 ; Hyperlipidemia E78.5 ; Thoracic back pain, unspecified back pain laterality, unspecified chronicity M54.6 ; Chronic pain G89.29 ; Anxiety F41.9 ; Chronic kidney failure N18.9 ; Environmental allergies Z91.09 ; Vitamin D deficiency E55.9 and Primary insomnia F51.01 [facility] [address] [facility] [id number] [address] [place] [id number] Sep, Anxiety F41.9 [facility] [address] [facility] [id number] [address] [place] [address] Sep, [facility] [address] [place] [id number] [address] [place] [id number] August, Anxiety F41.9 [facility] [address] [facility] [id number] [address] [place] [address] August, [facility] [address] [place] [id number] [address] [place] [id number] Jul, Anxiety F41.9 [facility] [address] [facility] [id number] [address] [place] [phone] Jul, [facility] [address] [facility] [id number] [address] [place] [id number] Jun, Anxiety F41.9 [facility] [address] [facility] [id number] [address] [place] [phone] Jun, [facility] [address] [facility] [id number] [address] [place] [id number] May, [facility] [address] [facility] [id number] [address] [place] [id number] May, [facility] [address] [place] [id number] [address] [place] [phone] May, [facility] [address] [facility] [id number] [address] [place] [phone] Apr, [facility] [address] [facility] [id number] [address] [place] [id number] Apr, [facility] [address] [facility] [id number] [address] [place] [phone] Apr, Anxiety F41.9 [facility] [address] [facility] [id number] [address] [place] [id number] Apr, Anxiety F41.9 [facility] [address] [facility] [id number] [address] [place] [phone] Apr, [facility] [address] [facility] [id number] [address] [place] [address] Mar, HTN (hypertension) I10 ; Phillip mor R25.1 ; Hypercholesterolemia E78.0 ; Constipation K59.00 ; Chronic pain G89.29 ; Hyperlipidemia E78.5 ; Insomnia G47.00 ; Anxiety F41.9 and Thoracic back pain, unspecified back pain laterality, unspecified chronicity M54.6 [facility] [address] [facility] [id number] [address] [place] [id number] Mar, Tremor R25.1 ; HTN (hyperten stas) I10 ; Hypercholesterolemia E78.0 ; Constipation K59.00 ; Chronic pain G89.29 ; Hyperlipidemia E78.5 ; Insomnia G47.00 ; Anxiety F41.9 and Thoracic back pain, unspecified back pain laterality, unspecified chronicity M54.6 [facility] [address] [facility] [id number] [address] [place] [address] Mar, [facility] [address] [place] [id number] [address] [place] [phone] Mar, [facility] [address] [facility] [id number] [address] [place] [phone] Feb, [facility] [address] [place] [id number] [address] [place] [phone] 13 Jan, 2016 [facility] [address] [id number] [address] [place] [id number] 10 Jan, 2016 [facility] [address] [id number] [address] [place] [id number] 15 Dec, 2015 [facility] [address] [id number] [address] [place] [phone] Nov, [facility] [address] [id number] [address] [place] [address] Nov, [facility] [address] [id number] [address] [place] [phone] Oct, Anxiety F41.9 [facility] [address] [facility] [id number] [address] [place] [id number] Oct, Chronic pain G89.29 [facility] [address] [id number] [address] [place] [id number] Sep, [facility] [address] [id number] [address] [place] [phone] Sep, [facility] [address] [id number] [address] [place] [id number] Sep, [facility] [address] [id number] [address] [place] [phone] Sep, [facility] [address] [id number] [address] [place] [id number] Sep, Chronic pain syndrome G89.4 [facility] [address] [id number] [address] [place] [id number] 15 Sep, 2015 HTN (hypertension) I10 ; Chr onic pain G89.29 ; Hypercholesterolemia E78.0 ; Chronic kidney failure N18.9 ; Constipation, unspecified constipation type K59.00 ; Anxiety F41.9 and Thoracic back pain, unspecified back pain laterality, unspecified chronicity M54.6 [facility] [address] [id number] [address] [place] [id number] August, Chronic pain syndrome G89.4 [facility] [address] [id number] [address] [place] [address] August, Chronic pain syndrome G89.4 [facility] [address] [id number] [address] [place] [id number] Jul, Anxiety disorder, unspecifie d F41.9 and Chronic pain syndrome G89.4 [facility] [address] [id number] [address] [place] [id number] Jul, Insomnia, unspecified G47.00 and Chronic pain syndrome G89.4 [facility] [address] [id number] [address] [place] [id number] Jul, Allergic rhinitis J30.9 [facility] [address] [id number] [address] [place] [id number] Jul, Constipation, unspecified K5 9.00 [facility] [address] [id number] [address] [place] [id number] Jul, [facility] [address] [id number] [address] [place] [id number] Jun, [facility] [address] [id number] [address] [place] [id number] Jun, [facility] [address] [id number] [address] [place] [id number] Jun, [facility] [address] [id number] [address] [place] [id number] Jun, [facility] [address] [id number] [address] [place] [id number] Jun, [facility] [address] [facility] [id number] [address] [place] [id number] Jun, [facility] [address] [facility] [id number] [address] [place] [id number] May, [facility] [address] [facility] [id number] [address] [place] [id number] May, [facility] [address] [place] [id number] [place] [id number] May, Anxiety F41.9 ; Insomnia G47 .00 ; Hyperlipidemia E78.5 ; Chronic pain G89.29 ; HTN (hypertension) I10 ; Environmental allergies V15.09 and Constipation 564.00 [facility] [address] [facility] [id number] [address] [place] [id number] Apr, [facility] [address] [facility] [id number] [address] [place] [id number] Apr, [facility] [address] [place] [id number] [address] [place] [phone] Apr, [facility] [address] [place] [id number] [address] [place] [phone] Mar, [facility] [address] [id number] [place] [id number] Mar, [facility] [address] [id number] [address] [place] [id number] Mar, [facility] [id number] [place] [id number] Feb, [facility] [address] [id number] [address] [place] [id number] Feb, [facility] [address] [id number] [address] [place] [id number] Feb, [facility] [address] [id number] [address] [place] [id number] Jan, HTN (hypertension) I10 ; Con stipation K59.00 ; Chronic pain G89.29 ; Hyperlipidemia E78.5 ; Hypercholesterolemia E78.0 ; Insomnia G47.00 and Anxiety F41.9 [facility] [address] [id number] [address] [place] [id number] Jan, [facility] [address] [facility] [id number] [address] [place] [id number] Dec, [facility] [address] [facility] [id number] [address] [place] [id number] Nov, [facility] [address] [facility] [id number] [address] [place] [id number] Oct, Chronic kidney disease, unsp ecified 585.9 ; Chronic pain syndrome 338.4 ; Hyperlipidemia 272.4 and Essential hypertension 401.9 [facility] [address] [facility] [id number] [address] [place] [id number] Oct, Chronic kidney disease 585.9 [facility] [address] [facility] [id number] [address] [place] [id number] Oct, [facility] [address] [id number] [address] [place] [id number] Oct, Chronic kidney disease, unsp ecified 585.9 ; Hypercalcemia 275.42 ; Hyperlipidemia 272.4 ; Essential hypertension 401.9 ; Chronic pain syndrome 338.4 ; Insomnia 780.52 ; Constipation 564.00 ; Environmental allergies V15.09 and Anxiety 300.00 [facility] [address] [facility] [id number] [address] [place] [id number] Oct, Chronic kidney disease 585.9 [facility] [address] [facility] [id number] [address] [place] [id number] Oct, [facility] [address] [id number] [address] [place] [id number] 14 Oct, 2014 Chronic kidney disease 585.9 and Hyperlipidemia 272.4 [facility] [address] [facility] [id number] [address] [place] [phone] Oct, [facility] [address] [facility] [id number] [address] [place] [phone] Oct, [facility] [address] [id number] [address] [place] [phone] Sep, [facility] [place] [address] [id number] [address] [place] [address], [place] [id number] Sep, [facility] [address] [id number] [address] [place] [address], [place] [id number] Sep, Chronic kidney disease 585.9 and Hyperlipidemia 272.4 [facility] [address] [id number] [address] [place] [address], [place] [id number] Sep, [facility] [address] [id number] [address] [place] [address], [place] [id number] August, [facility] [address] [id number] [address] [place] [address], [place] [id number] August, [facility] [address] [id number] [address] [place] [address], [place] [id number] Jul, [facility] [place] [address] [id number] [address] [place] [address], [place] [id number] Jul, [facility] [address] [id number] [address] [place] [address], [place] [id number] Jun, [facility] [place] [address] [id number] [address] [place] [address], [place] [id number] Jun, [facility] [address] [id number] [address] [place] [address], [place] [id number] Jun, [facility] [address] [id number] [address] [place] [id number] Jun, [facility] [address] [id number] [address] [place] [id number] Jun, [facility] [address] [id number] [address] [place] [id number] Jun, [facility] [address] [id number] [address] [place] [address], [place] [id number] Jun, [facility] [address] [id number] [address] [place] [address], [place] [id number] Jun, [facility] [address] [id number] [address] [place] [address], [place] [id number] 16 May, 2014 [facility] [address] [id number] [address] [place] [address], [place] [id number] May, [facility] [address] [id number] [address] [place] [address], [place] [id number] May, [facility] [address] [id number] [address] [place] [address], [place] [id number] May, [facility] [address] [id number] [address] [place] [address], [place] [id number] Apr, [facility] [address] [id number] [address] [place] [address], [place] [id number] Apr, [facility] [address] [id number] [address] [place] [address], [place] [id number] Apr, [facility] [address] [id number] [address] [place] [address], [place] [id number] Apr, [facility] [address] [id number] [address] [place] [address], [place] [id number] Apr, [facility] [address] [id number] [address] [place] [address], [place] [id number] Apr, [facility] [address] [id number] [address] [place] [address], [place] [id number] Apr, [facility] [address] [id number] [address] [place] [address], [place] [id number] Apr, [facility] [address] [id number] [address] [place] [address], [place] [id number] Apr, [facility] [address] [id number] [address] [place] [address], [place] [id number] Apr, [facility] [address] [id number] [address] [place] [address], [place] [id number] Apr, [facility] [address] [id number] [address] [place] [address], [place] [address] Mar, [facility] [address] [id number] [address] [place] [address], [place] [id number] Mar, [facility] [address] [id number] [address] [place] [address], [place] [id number] Feb, [facility] [address] [id number] [address] [place] [address], [place] [id number] Feb, [facility] [address] [id number] [address] [place] [address], [place] [id number] Feb, [facility] [address] [id number] [address] [place] [address], [place] [id number] Feb, [facility] [address] [id number] [address] [place] [address], [place] [id number] Feb, [facility] [address] [id number] [address] [place] [address], [place] [id number] Feb, [facility] [address] [id number] [address] [place] [address], [place] [id number] Feb, [facility] [address] [id number] [address] [place] [address], [place] [id number] Feb, [facility] [address] [id number] [address] [place] [address], [place] [id number] Feb, [facility] [address] [id number] [address] [place] [address], [place] [id number] Feb, [facility] [address] [id number] [address] [place] [id number] Jan, [facility] [address] [id number] [address] [place] [address], [place] [address] Jan, [facility] [address] [id number] [address] [place] [address], [place] [id number] Jan, [facility] [address] [id number] [address] [place] [address], [place] [id number] Jan, [facility] [address] [id number] [address] [place] [address], [place] [id number] 24 Jan, 2014 [facility] [address] [id number] [address] [place] [address], [place] [id number] 24 Jan, 2014 [facility] [address] [id number] [address] [place] [address], [place] [id number] Jan, [facility] [address] [id number] [address] [place] [address], [place] [id number] 17 Jan, 2014 [facility] [address] [id number] [address] [place] [address], [place] [id number] 16 Jan, 2014 [facility] [address] [id number] [address] [place] [address], [place] [id number] Jan, [facility] [address] [id number] [address] [place] [address], [place] [id number] Jan, [facility] [address] [id number] [address] [place] [address], [place] [id number] 26 Dec, 2013 [facility] [address] [id number] [address] [place] [address], [place] [id number] 26 Dec, 2013 [facility] [address] [id number] [address] [place] [address], [place] [id number] 19 Dec, 2013 [facility] [address] [id number] [address] [place] [address], [place] [id number] 19 Dec, 2013 [facility] [address] [id number] [address] [place] [address], [place] [id number] 18 Dec, 2013 [facility] [address] [id number] [address] [place] [address], [place] [id number] 18 Dec, 2013 [facility] [address] [id number] [address] [place] [address], [place] [id number] 03 Dec, 2013 [facility] [address] [id number] [address] [place] [address], [place] [id number] 03 Dec, 2013 [facility] [address] [id number] [address] [place] [address], [place] [id number] Nov, [facility] [address] [id number] [address] [place] [address], [place] [address] Nov, [facility] [address] [id number] [address] [place] [address], [place] [id number] Nov, [facility] [address] [id number] [address] [place] [address], [place] [address] Nov, [facility] [address] [id number] [address] [place] [address], [place] [address] Nov, [facility] [address] [id number] [address] [place] [address], [place] [id number] Nov, [facility] [address] [id number] [address] [place] [address], [place] [id number] Nov, [facility] [address] [id number] [address] [place] [address], [place] [address] Nov, [facility] [address] [id number] [address] [place] [address], [place] [id number] Oct, [facility] [address] [id number] [address] [place] [address], [place] [id number] Oct, [facility] [address] [id number] [address] [place] [address], [place] [address] Oct, [facility] [address] [id number] [address] [place] [address], [place] [id number] Oct, [facility] [address] [id number] [address] [place] [address], [place] [id number] Sep, [facility] [address] [id number] [address] [place] [address], [place] [id number] Sep, [facility] [address] [id number] [address] [place] [address], [place] [id number] Sep, [facility] [address] [id number] [address] [place] [address], [place] [id number] Sep, [facility] [address] [id number] [address] [place] [address], [place] [id number] Sep, [facility] [address] [id number] [address] [place] [address], [place] [id number] Sep, [facility] [address] [id number] [address] [place] [address], [place] [id number] Sep, [facility] [address] [id number] [address] [place] [address], [place] [id number] Sep, [facility] [address] [id number] [address] [place] [address], [place] [id number] August, [facility] [address] [id number] [address] [place] [address], [place] [address] August, [facility] [address] [id number] [address] [place] [address], [place] [id number] August, [facility] [address] [id number] [address] [place] [address], [place] [id number] August, [facility] [address] [id number] [address] [place] [address], [place] [id number] August, [facility] [address] [id number] [address] [place] [address], [place] [id number] August, [facility] [address] [id number] [address] [place] [address], [place] [id number] August, [facility] [address] [id number] [address] [place] [address], [place] [id number] August, [facility] [address] [id number] [address] [place] [address], [place] [address] August, [facility] [address] [id number] [address] [place] [address], [place] [id number] August, [facility] [address] [id number] [address] [place] [address], [place] [id number] Jul, [facility] [address] [id number] [address] [place] [address], [place] [id number] Jul, [facility] [address] [id number] [facility] [place] [id number] Jul, [facility] [address] [id number] [facility] [place] [address] Jul, [facility] [address] [id number] [facility] [place] [address] Jul, [facility] [address] [id number] [address] [place] [address], [place] [id number] Jul, [facility] [address] [id number] [address] [place] [address], [place] [address] Jul, [facility] [address] [id number] [address] [place] [address], [place] [address] Jul, [facility] [address] [id number] [address] [place] [address], [place] [id number] Jun, [facility] [address] [id number] [address] [place] [address], [place] [id number] Jun, [facility] [address] [id number] [address] [place] [address], [place] [address] Jun, [facility] [address] [id number] [address] [place] [address], [place] [id number] Jun, [facility] [address] [id number] [address] [place] [address], [place] [id number] Jun, [facility] [address] [id number] [address] [place] [address], [place] [id number] Jun, [facility] [address] [id number] [address] [place] [address], [place] [address] May, [facility] [address] [id number] [address] [place] [address], [place] [address] May, [facility] [address] [id number] [address] [place] [address], [place] [address] May, [facility] [address] [id number] [address] [place] [address], [place] [address] May, [facility] [address] [id number] [address] [place] [address], [place] [address] May, [facility] [address] [id number] [address] [place] [address], [place] [id number] May, [facility] [address] [id number] [address] [place] [address], [place] [id number] May, [facility] [address] [id number] [address] [place] [address], [place] [id number] Apr, [facility] [address] [id number] [address] [place] [address], [place] [id number] Apr, [facility] [address] [id number] [address] [place] [address], [place] [id number] Apr, [facility] [address] [id number] [address] [place] [address], [place] [id number] Apr, [facility] [address] [id number] [address] [place] [address], [place] [id number] Apr, [facility] [place] [address] [id number] [address] [place] [address], [place] [address] Apr, [facility] [place] [address] [id number] [address] [place] [address], [place] [address] Mar, [facility] [address] [id number] [address] [place] [address], [place] [address] Mar, [facility] [address] [id number] [address] [place] [address], [place] [id number] Mar, [facility] [address] [id number] [address] [place] [address], [place] [id number] Mar, [facility] [address] [id number] [address] [place] [address], [place] [id number] Mar, [facility] [address] [id number] [address] [place] [address], [place] [id number] Mar, [facility] [address] [id number] [address] [place] [address], [place] [id number] 16 Mar, 2013 [facility] [address] [id number] [address] [place] [address], [place] [id number] 16 Mar, 2013 [facility] [address] [id number] [address] [place] [address], [place] [id number] Mar, [facility] [address] [id number] [address] [place] [address], [place] [id number] Mar, [facility] [address] [id number] [address] [place] [address], [place] [id number] Feb, [facility] [address] [id number] [address] [place] [address], [place] [id number] Feb, [facility] [address] [id number] [address] [place] [address], [place] [id number] Feb, [facility] [address] [id number] [address] [place] [address], [place] [id number] Feb, [facility] [address] [id number] [address] [place] [address], [place] [id number] Feb, [facility] [address] [id number] [address] [place] [address], [place] [id number] Feb, [facility] [address] [id number] [address] [place] [address], [place] [id number] Feb, [facility] [address] [id number] [address] [place] [address], [place] [id number] Feb, [facility] [address] [id number] [address] [place] [address], [place] [id number] Feb, [facility] [address] [id number] [address] [place] [address], [place] [id number] Feb, [facility] [address] [id number] [address] [place] [address], [place] [id number] Jan, [facility] [address] [id number] [address] [place] [address], [place] [id number] Jan, [facility] [address] [id number] [address] [place] [address], [place] [id number] Jan, [facility] [address] [id number] [address] [place] [address], [place] [id number] Jan, [facility] [address] [id number] [address] [place] [address], [place] [id number] Jan, [facility] [address] [id number] [address] [place] [address], [place] [id number] Jan, [facility] [address] [id number] [address] [place] [address], [place] [id number] Jan, [facility] [address] [id number] [address] [place] [address], [place] [id number] Jan, [facility] [address] [id number] [address] [place] [address], [place] [id number] Jan, [facility] [address] [id number] [address] [place] [address], [place] [id number] Dec, [facility] [address] [id number] [address] [place] [address], [place] [id number] Dec, [facility] [address] [id number] [address] [place] [address], [place] [id number] Dec, [facility] [address] [id number] [address] [place] [address], [place] [id number] Dec, [facility] [address] [id number] [address] [place] [address], [place] [id number] Nov, [facility] [address] [id number] [address] [place] [address], [place] [id number] Nov, [facility] [address] [id number] [address] [place] [address], [place] [id number] Nov, [facility] [address] [id number] [address] [place] [address], [place] [id number] Nov, [facility] [address] [id number] [address] [place] [address], [place] [id number] Nov, [facility] [address] [id number] [address] [place] [address], [place] [id number] Nov, [facility] [address] [id number] [address] [place] [address], [place] [id number] Oct, [facility] [address] [id number] [address] [place] [address], [place] [id number] Oct, [facility] [address] [id number] [address] [place] [address], [place] [id number] Oct, [facility] [address] [id number] [address] [place] [address], [place] [id number] Oct, [facility] [address] [id number] [address] [place] [address], [place] [id number] Sep, [facility] [place] [address] [id number] [address] [place] [address], [place] [id number] Sep, [facility] [place] [address] [id number] [address] [place] [address], [place] [id number] Sep, [facility] [address] [id number] [address] [place] [address], [place] [id number] Sep, [facility] [place] [address] [id number] [address] [place] [address], [place] [id number] Sep, [facility] [place] [address] [id number] [address] [place] [address], [place] [id number] August, [facility] [address] [id number] [address] [place] [address], [place] [id number] August, [facility] [address] [id number] [address] [place] [address], [place] [id number] Jul, [facility] [address] [id number] [address] [place] [address], [place] [id number] Jul, [facility] [address] [id number] [address] [place] [address], [place] [id number] 15 Jul, 2012 [facility] [address] [id number] [address] [place] [address], [place] [id number] Jul, [facility] [facility] [address] [id number] [address] [place] [address], [place] [id number] Jul, [facility] [address] [id number] [address] [place] [address], [place] [id number] 26 Jun, 2012 [facility] [address] [id number] [address] [place] [address], [place] [id number] Jun, [facility] [address] [id number] [address] [place] [address], [place] [id number] 15 Jun, 2012 [facility] [address] [id number] [address] [place] [address], [place] [id number] 06 Jun, 2012 [facility] [address] [id number] [address] [place] [address], [place] [id number] Jun, [facility] [address] [id number] [address] [place] [address], [place] [id number] 28 May, 2012 [facility] [address] [id number] [address] [place] [address], [place] [id number] 27 May, 2012 [facility] [address] [id number] [address] [place] [address], [place] [id number] 25 May, 2012 [facility] [address] [id number] [address] [place] [address], [place] [id number] May, [facility] [address] [id number] [address] [place] [address], [place] [id number] 20 May, 2012 [facility] [address] [id number] [address] [place] [address], [place] [id number] 14 May, 2012 [facility] [address] [id number] [address] [place] [address], [place] [id number] 13 May, 2012 [facility] [address] [id number] [address] [place] [address], [place] [id number] 08 May, 2012 [facility] [address] [id number] [address] [place] [address], [place] [id number] 04 May, 2012 [facility] [place] [address] [id number] [address] [place] [address], [place] [id number] Apr, [facility] [address] [id number] [address] [place] [address], [place] [id number] Apr, [facility] [address] [id number] [address] [place] [address], [place] [id number] Apr, [facility] [address] [id number] [address] [place] [address], [place] [id number] Apr, [facility] [place] [address] [id number] [address] [place] [address], [place] [id number] Apr, [facility] [place] [address] [id number] [address] [place] [address], [place] [id number] Mar, [facility] [address] [id number] [address] [place] [address], [place] [id number] Mar, [facility] [address] [id number] [address] [place] [address], [place] [id number] Mar, [facility] [place] [address] [id number] [address] [place] [address], [place] [id number] Mar, [facility] [address] [id number] [address] [place] [address], [place] [id number] Mar, [facility] [place] [address] [id number] [address] [place] [address], [place] [id number] Mar, [facility] [address] [id number] [address] [place] [address], [place] [id number] Mar, [facility] [address] [id number] [address] [place] [address], [place] [id number] Mar, [facility] [address] [id number] [address] [place] [address], [place] [id number] Mar, [facility] [address] [id number] [address] [place] [address], [place] [id number] Mar, [facility] [address] [id number] [address] [place] [address], [place] [id number] 30 Feb, 2012 [facility] [address] [id number] [address] [place] [address], [place] [id number] Feb, [facility] [address] [id number] [address] [place] [address], [place] [id number] Feb, [facility] [address] [id number] [address] [place] [address], [place] [id number] Feb, [facility] [address] [id number] [address] [place] [address], [place] [id number] Feb, [facility] [address] [id number] [address] [place] [address], [place] [id number] Feb, [facility] [address] [id number] [address] [place] [address], [place] [id number] Feb, [facility] [address] [id number] [address] [place] [address], [place] [id number] Feb, [facility] [address] [id number] [address] [place] [address], [place] [id number] Feb, [facility] [address] [id number] [address] [place] [address], [place] [id number] 16 Feb, 2012 [facility] [address] [id number] [address] [place] [address], [place] [id number] Feb, [facility] [address] [id number] [address] [place] [address], [place] [id number] Feb, [facility] [address] [id number] [address] [place] [address], [place] [id number] Feb, [facility] [address] [id number] [address] [place] [address], [place] [id number] Feb, [facility] [address] [id number] [address] [place] [address], [place] [id number] Feb, [facility] [address] [id number] [address] [address] 08 Feb, 2012 [facility] [address] [id number] [address] [place] [address], [place] [id number] 07 Feb, 2012 [facility] [address] [id number] [address] [place] [address], [place] [id number] Feb, [facility] [address] [id number] [address] [place] [address], [place] [id number] Jan, [facility] [address] [id number] [address] [place] [id number] Jan, [facility] [address] [id number] [address] [place] [address], [place] [address] Jan, [facility] [address] [id number] [address] [place] [id number] Jan, [facility] [address] [id number] [address] [place] [id number] Jan, [facility] [address] [id number] [address] [place] [id number] Jan, [facility] [address] [id number] [address] [place] [id number] Jan, [facility] [address] [id number] [address] [place] [id number] Jan, [facility] [address] [id number] [address] [place] [id number] 08 Jan, 2012 [facility] [address] [id number] [address] [place] [id number] Jan, [facility] [address] [id number] [address] [place] [address], [place] [id number] 24 Dec, 2011 [facility] [address] [id number] [address] [place] [id number] 18 Dec, 2011 [facility] [address] [id number] [address] [place] [id number] 04 Dec, 2011 [facility] [address] [id number] [address] [place] [address], [place] [address] Dec, [facility] [place] [address] [id number] [address] [place] [address], [place] [id number] Nov, [facility] [address] [id number] [address] [place] [address], [place] [id number] Nov, [facility] [place] [address] [id number] [address] [place] [address], [place] [id number] Nov, [facility] [address] [id number] [address] [place] [address], [place] [id number] Nov, [facility] [address] [id number] [address] [place] [address], [place] [address] Nov, [facility] [place] [address] [id number] [address] [place] [address], [place] [id number] Nov, [facility] [place] [address] [id number] [address] [place] [address], [place] [id number] Oct, [facility] [place] [address] [id number] [address] [place] [address], [place] [id number] Oct, [facility] [place] [address] [id number] [address] [place] [address], [place] [id number] Oct, [facility] [address] [id number] [address] [place] [address], [place] [id number] Oct, [facility] [place] [address] [id number] [address] [place] [address], [place] [address] Oct, [facility] [address] [id number] [address] [place] [address], [place] [id number] Sep, [facility] [address] [id number] [address] [place] [address], [place] [address] Sep, [facility] [address] [id number] [address] [place] [address], [place] [id number] Sep, [facility] [address] [id number] [address] [place] [address], [place] [id number] Sep, [facility] [place] [address] [id number] [address] [place] [address], [place] [id number] Sep, [facility] [address] [id number] [address] [place] [address], [place] [id number] August, [facility] [address] [id number] [address] [place] [address], [place] [id number] August, [facility] [address] [id number] [address] [place] [address], [place] [id number] August, [facility] [address] [id number] [address] [place] [address], [place] [address] August, [facility] [address] [id number] [address] [place] [address], [place] [id number] Jul, [facility] [address] [id number] [address] [place] [address], [place] [id number] Jul, [facility] [address] [id number] [address] [place] [address], [place] [id number] Jul, [facility] [address] [id number] [address] [place] [address], [place] [id number] Jul, [facility] [address] [id number] [address] [place] [address], [place] [id number] Jul, [facility] [address] [id number] [address] [place] [address], [place] [id number] Jul, [facility] [address] [id number] [address] [place] [address], [place] [address] 11 Jul, 2011 [facility] [address] [id number] [address] [place] [address], [place] [id number] 10 Jul, 2011 [facility] [address] [id number] [address] [place] [address], [place] [address] 09 Jul, 2011 [facility] [address] [id number] [address] [place] [address], [place] [id number] 07 Jul, 2011 [facility] [address] [id number] [address] [place] [address], [place] [id number] 05 Jul, 2011 [facility] [place] [address] [id number] [address] [place] [address], [place] [id number] Jul, [facility] [address] [id number] [address] [place] [address], [place] [id number] Jul, [facility] [address] [id number] [address] [place] [address], [place] [id number] Jul, [facility] [address] [id number] [address] [place] [address], [place] [id number] 28 Jun, 2011 [facility] [address] [id number] [address] [place] [address], [place] [id number] 27 Jun, 2011 [facility] [address] [id number] [address] [place] [address], [place] [id number] 20 Jun, 2011 [facility] [place] [address] [id number] [address] [place] [address], [place] [id number] 16 Jun, 2011 [facility] [address] [id number] [address] [place] [address], [place] [address] May, [facility] [place] [address] [id number] [address] [place] [address], [place] [id number] 16 May, 2011 [facility] [place] [address] [id number] [address] [place] [address], [place] [address] May, [facility] [place] [address] [id number] [address] [place] [address], [place] [id number] Apr, [facility] [address] [id number] [address] [place] [address], [place] [id number] 18 Apr, 2011 [facility] [address] [id number] [address] [place] [address], [place] [id number] 13 Apr, 2011 [facility] [address] [id number] [address] [place] [address], [place] [id number] Apr, [facility] [address] [id number] [address] [place] [address], [place] [id number] Apr, [facility] [address] [id number] [address] [place] [address], [place] [id number] Mar, [facility] [address] [id number] [address] [place] [address], [place] [id number] Mar, [facility] [address] [id number] [address] [place] [address], [place] [id number] Mar, [facility] [address] [id number] [address] [place] [address], [place] [address] Mar, [facility] [address] [id number] [address] [place] [address], [place] [id number] 16 Mar, 2011 [facility] [address] [id number] [address] [place] [address], [place] [id number] Mar, [facility] [address] [id number] [address] [place] [address], [place] [id number] Mar, [facility] [address] [id number] [address] [place] [address], [place] [id number] Feb, [facility] [address] [id number] [address] [place] [address], [place] [id number] Feb, [facility] [address] [id number] [address] [place] [address], [place] [id number] Feb, [facility] [address] [id number] [address] [place] [address], [place] [id number] Feb, [facility] [address] [id number] [address] [place] [address], [place] [id number] 16 Feb, 2011 [facility] [address] [id number] [address] [place] [address], [place] [id number] 14 Feb, 2011 [facility] [address] [id number] [address] [place] [address], [place] [id number] 10 Feb, 2011 [facility] [address] [id number] [address] [place] [address], [place] [id number] 31 Jan, 2011 [facility] [address] [id number] [address] [place] [address], [place] [id number] 31 Jan, 2011 [facility] [address] [id number] [address] [place] [address], [place] [id number] 31 Jan, 2011 [facility] [address] [id number] [address] [place] [address], [place] [id number] 18 Jan, 2011 [facility] [address] [id number] [address] [place] [address], [place] [id number] 17 Jan, 2011 [facility] [address] [id number] [address] [place] [address], [place] [id number] 17 Jan, 2011 [facility] [address] [id number] [address] [place] [address], [place] [id number] 17 Jun, 2010 [facility] [address] [id number] [address] [place] [address], [place] [id number] 30 Mar, 2010 [facility] [address] [id number] [address] [place] [address], [place] [id number] 20 Mar, 2010 [facility] [address] [id number] [address] [place] [address], [place] [id number] 14 Mar, 2010 [facility] [address] [id number] [address] [place] [address], [place] [id number] 14 Mar, 2010 [facility] [address] [id number] [address] [place] [address], [place] [id number] 13 Mar, 2010 [facility] [address] [id number] [address] [place] [address], [place] [id number] 07 Mar, 2010 [facility] [address] [id number] [address] [place] [address], [place] [id number] 02 Mar, 2010 [facility] [address] [id number] [address] [place] [address], [place] [id number] Mar, [facility] [address] [id number] [address] [place] [address], [place] [id number] 30 Feb, 2010 [facility] [address] [id number] [address] [place] [address], [place] [address] Feb, [facility] [address] [id number] [address] [place] [address], [place] [id number] 17 Feb, 2010 [facility] [place] [address] [id number] [address] [place] [address], [place] [id number] 17 Feb, 2010 [facility] [address] [id number] [address] [place] [address], [place] [id number] 16 Feb, 2010 [facility] [address] [id number] [address] [place] [address], [place] [id number] 08 Feb, 2010 [facility] [address] [id number] [address] [place] [address], [place] [id number] 04 Feb, 2010 [facility] [address] [id number] [address] [place] [address], [place] [id number] Feb, [facility] [place] [address] [id number] [address] [place] [address], [place] [id number] 28 Jan, 2010 [facility] [place] [address] [id number] [address] [place] [address], [place] [id number] Jan, [facility] [place] [address] [id number] [address] [place] [address], [place] [id number] 25 Jan, 2010 [facility] [place] [address] [id number] [address] [place] [address], [place] [id number] 18 Jan, 2010 [facility] [address] [id number] [address] [place] [address], [place] [id number] 29 Mar, 2009 [facility] [place] [address] [id number] [address] [place] [address], [place] [id number] 22 Mar, 2009 [facility] [place] [address] [id number] [address] [place] [address], [place] [id number] 19 Mar, 2009 [facility] [address] [id number] [address] [place] [address], [place] [id number] 19 Mar, 2009 [facility] [address] [id number] [address] [place] [address], [place] [id number] 14 Mar, 2009 [facility] [place] [address] [id number] [address] [place] [address], [place] [id number] Mar, [facility] [address] [facility] [id number] [address] [place] [id number] Feb, [facility] [address] [facility] [id number] [address] [place] [id number] Feb, [facility] [address] [facility] [id number] [address] [place] [id number] Jan, [facility] [address] [facility] [id number] [address] [place] [id number] Sep, [facility] [address] [facility] [id number] [address] [place] [id number] May, IMMUNIZATIONS No Known Immunizations SOCIAL HISTORY Never Assessed REASON FOR VISIT PLAN OF CARE VITAL SIGNS Height 74 in 2014-02-11 Weight 207 lbs 2014-02-11 Temperature 98.7 degrees Fahrenheit 2014-02-11 Heart Rate 80 bpm 2014-02-11 Respiratory Rate 20 2014-02-11 Blood pressure systolic 150 mmHg 2014-02-11 Blood pressure diastolic 92 mmHg 2014-02-11 MEDICATIONS Unknown Medications RESULTS No Results PROCEDURES Procedure Date Ordered Result Body Site COMPREHEN METABOLIC PANEL Feb 11, 2014 VENIPUNCT, ROUTINE* Feb 11, 2014 INSTRUCTIONS MEDICATIONS ADMINISTERED No Known Medications MEDICAL (GENERAL) HISTORY Type Description Date Medical History Hypertension Medical History Hyperlipidemia Medical History chronic back pain since age 26 Medical History Anxiety Medical History Hx of Spontaneous Pneumothorax Surgical History right knee arthroscopy Surgical History colon resection Surgical History tonsillectomy Surgical History Left ear surgery Hospitalization History [facility] in [place]- Spontane ous Pneumothorax Hospitalization History [facility]- Colon resection Hospital[facility] - diarrhea/ couldnt urin ate nov 2017 Hospitalization History pain /hip to foot right side 10/16/19 19
--- OUTSIDE RECORDS SUMMARY | 2019-08-28 09:07 | XMS REPORT ---
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 Name Role Phone Migration, Doctor Unavailable Unavailable PROBLEMS Type Condition ICD9-CM Code YLT13-OI Code Onset Dates Condition S tatus SNOMED Code Problem Insomnia G47.00 Active 288976504 Problem Anxiety F41.9 Active 43142253 Problem HTN (hypertension) I10 Active 3 3233113 Problem Hyperlipidemia E78.5 Active 93680 004 Problem Thoracic back pain, unspecif ied back pain laterality, unspecified chronicity M54.6 Active 792340697 Problem Vitamin D deficiency E55.9 Active 85188053 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 09539858 Problem Chronic pain G89.29 Active 8526692 1 Problem Schizophrenia, unspecified type F20.9 Active 35771610 Problem Constipation K59.00 Active 9094697 8 Problem Environmental allergies Z91.09 Active 749633624 Problem Primary insomnia F51.01 Active 397 2004 Problem Chronic kidney disease, stage III (moderate) N18.3 Active 891826084 Problem Vision loss H54.7 Active 40813223 1 ALLERGIES No Information ENCOUNTERS Encounter Location Date Diagnosis [place] [address] [facility] [id number] [address] [place] [id number] Nov, Thoracic back pain, unspecif ied back pain laterality, unspecified chronicity M54.6 [facility] [address] [facility] [id number] [address] [place] [id number] Nov, Anxiety F41.9 and Thoracic b ack pain, unspecified back pain laterality, unspecified chronicity M54.6 [facility] [address] [facility] [id number] [address] [place] [id number] Nov, [facility] [address] [facility] [id number] [address] [place] [id number] Nov, [facility] [address] [id number] [address] [place] [id number] Nov, [facility] [address] [id number] [address] [place] [address] Oct, Thoracic back pain, unspecif ied back pain laterality, unspecified chronicity M54.6 [facility] [address] [id number] [address] [place] [phone] Oct, Anxiety F41.9 and Thoracic b ack pain, unspecified back pain laterality, unspecified chronicity M54.6 [facility] [address] [id number] [address] [place] [id number] Oct, Schizophrenia, unspecified t ype F20.9 and Acute kidney injury N17.9 [facility] [address] [id number] [address] [place] [id number] Oct, [facility] [address] [id number] [address] [place] [id number] Oct, [facility] [address] [id number] [address] [place] [id number] Oct, Thoracic back pain, unspecif ied back pain laterality, unspecified chronicity M54.6 [facility] [address] [id number] [address] [place] [id number] Oct, [facility] [address] [id number] [address] [place] [id number] Oct, [facility] [address] [id number] [address] [place] [id number] Sep, Anxiety F41.9 [facility] [address] [id number] [address] [place] [id number] Sep, [facility] [address] [id number] [address] [place] [id number] Sep, Thoracic back pain, unspecif ied back pain laterality, unspecified chronicity M54.6 [facility] [address] [id number] [address] [place] [id number] Sep, [facility] [address] [facility] [id number] [address] [place] [id number] Sep, [facility] [address] [facility] [id number] [address] [place] [id number] Sep, [facility] [address] [facility] [id number] [address] [place] [id number] Sep, [facility] [address] [id number] [address] [place] [phone] Sep, [facility] [address] [facility] [id number] [address] [place] [id number] Sep, [facility] [address] [facility] [id number] [address] [place] [address] Sep, Chronic pain G89.29 ; Chroni c kidney disease, stage III (moderate) N18.3 ; Hyperlipidemia E78.5 and Insomnia G47.00 [facility] [address] [facility] [id number] [address] [place] [id number] Sep, Thoracic back pain, unspecif ied back pain laterality, unspecified chronicity M54.6 [facility] [address] [facility] [id number] [address] [place] [id number] August, Anxiety F41.9 [facility] [address] [facility] [id number] [address] [place] [id number] August, Thoracic back pain, unspecif ied back pain laterality, unspecified chronicity M54.6 and Anxiety F41.9 [facility] [address] [facility] [id number] [address] [place] [phone] August, 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 [facility] [address] [facility] [id number] [address] [place] [address] August, 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 [facility] [address] [facility] [id number] [address] [place] [id number] August, [facility] [address] [facility] [id number] [address] [place] [id number] August, [facility] [address] [id number] [address] [place] [address] August, Thoracic back pain, unspecif ied back pain laterality, unspecified chronicity M54.6 [facility] [address] [id number] [address] [place] [id number] August, [facility] [address] [id number] [address] [place] [address] August, Anxiety F41.9 and Thoracic b ack pain, unspecified back pain laterality, unspecified chronicity M54.6 [facility] [address] [id number] [address] [place] [id number] Jul, [facility] [address] [id number] [address] [place] [address] Jul, Thoracic back pain, unspecif ied back pain laterality, unspecified chronicity M54.6 [facility] [address] [id number] [address] [place] [id number] Jun, Anxiety F41.9 and Thoracic b ack pain, unspecified back pain laterality, unspecified chronicity M54.6 [facility] [address] [id number] [address] [place] [phone] Jun, Anxiety F41.9 and Thoracic b ack pain, unspecified back pain laterality, unspecified chronicity M54.6 [facility] [address] [id number] [address] [place] [address] Jun, Thoracic back pain, unspecif ied back pain laterality, unspecified chronicity M54.6 [facility] [address] [id number] [address] [place] [id number] Jun, Anxiety F41.9 and Thoracic b ack pain, unspecified back pain laterality, unspecified chronicity M54.6 [facility] [address] [id number] [address] [place] [id number] May, [facility] [address] [id number] [address] [place] [id number] May, [facility] [address] [id number] [address] [place] [id number] 08 May, 2018 [facility] [address] [id number] [address] [place] [id number] May, Anxiety F41.9 and Encounter for medication monitoring Z51.81 [facility] [address] [id number] [address] [place] [id number] 05 May, 2018 Anxiety F41.9 and Thoracic b ack pain, unspecified back pain laterality, unspecified chronicity M54.6 [place] [address] [id number] [address] [place] [address] Apr, Hyperlipidemia 272.4 [place] [address] [id number] [address] [place] [address] Apr, Chronic pain G89.29 ; Anxiet y F41.9 ; Cervical radiculopathy M54.12 and Vision loss H54.7 [facility] [address] [id number] [address] [place] [address] Apr, [facility] [address] [id number] [address] [place] [id number] Apr, Anxiety F41.9 and Thoracic b ack pain, unspecified back pain laterality, unspecified chronicity M54.6 [facility] [address] [id number] [address] [place] [id number] 17 Mar, 2018 [facility] [address] [id number] [address] [place] [id number] Mar, Anxiety F41.9 and Thoracic b ack pain, unspecified back pain laterality, unspecified chronicity M54.6 [facility] [address] [id number] [address] [place] [id number] Feb, Anxiety F41.9 and Thoracic b ack pain, unspecified back pain laterality, unspecified chronicity M54.6 [facility] [address] [id number] [address] [place] [id number] 07 Feb, 2018 Thoracic back pain, unspecif ied back pain laterality, unspecified chronicity M54.6 [facility] [address] [id number] [address] [place] [id number] 29 Jan, 2018 [facility] [address] [id number] [address] [place] [id number] Jan, Anxiety F41.9 and Thoracic b ack pain, unspecified back pain laterality, unspecified chronicity M54.6 [facility] [address] [id number] [address] [place] [id number] 19 Dec, 2017 Diarrhea of presumed infecti ous origin R19.7 [facility] [address] [id number] [address] [place] [id number] 19 Dec, 2017 Diarrhea of presumed infecti ous origin R19.7 [facility] [address] [id number] [address] [place] [id number] 18 Dec, 2017 Thoracic back pain, unspecif ied back pain laterality, unspecified chronicity M54.6 [facility] [address] [id number] [address] [place] [id number] 17 Dec, 2017 [facility] [address] [id number] [address] [place] [id number] 17 Dec, 2017 Anxiety F41.9 and Thoracic b ack pain, unspecified back pain laterality, unspecified chronicity M54.6 [facility] [address] [id number] [address] [place] [id number] 13 Dec, 2017 Diarrhea of presumed infecti ous origin R19.7 [facility] [address] [id number] [address] [place] [id number] 13 Dec, 2017 [facility] [address] [id number] [address] [place] [id number] 12 Dec, 2017 Anxiety F41.9 and Thoracic b ack pain, unspecified back pain laterality, unspecified chronicity M54.6 [place] [address] [id number] Dec, Anxiety F41.9 and Thoracic b ack pain, unspecified back pain laterality, unspecified chronicity M54.6 [facility] [address] [place] [id number] Dec, Diarrhea of presumed infectious origin R 19.7 ; Anxiety F41.9 ; Thoracic back pain, unspecified back pain laterality, unspecified chronicity M54.6 and HTN (hypertension) I10 [place] [address] [id number] Dec, Anxiety F41.9 [facility] [address] [place] [id number] Dec, Anxiety F41.9 ; Diarrhea of presumed inf ectious origin R19.7 ; Generalized abdominal pain R10.84 and Localized edema R60.0 [place] [address] [place] [id number] [address] [place] [address] Nov, [facility] [address] [place] [id number] Nov, Anxiety F41.9 ; Urinary retention R33.9 ; Diarrhea of presumed infectious origin R19.7 ; Weakness R53.1 ; Acute kidney failure, unspecified N17.9 ; Chronic kidney disease, stage III (moderate) N18.3 and Thoracic back pain, unspecified back pain laterality, unspecified chronicity M54.6 [place] [address] [place] [id number] [address] [place] [id number] Oct, Thoracic back pain, unspecif ied back pain laterality, unspecified chronicity M54.6 and Anxiety F41.9 [place] [address] [place] [id number] [address] [place] [id number] Sep, Thoracic back pain, unspecif ied back pain laterality, unspecified chronicity M54.6 and Anxiety F41.9 [place] [address] [id number] [address] [place] [address] Sep, Thoracic back pain, unspecif ied back pain laterality, unspecified chronicity M54.6 ; Anxiety F41.9 and Encounter for medication monitoring Z51.81 [facility] [address] [id number] [address] [place] [address] August, [facility] [address] [facility] [id number] [address] [place] [phone] August, Thoracic back pain, unspecif ied back pain laterality, unspecified chronicity M54.6 and Anxiety F41.9 [place] [address] [facility] [id number] [address] [place] [id number] August, Hyperlipidemia E78.5 and HTN (hypertension) I10 [place] [address] [facility] [id number] [address] [place] [id number] August, [place] [address] [facility] [id number] [address] [place] [address] August, Medicare welcome exam Z00.00 ; Chronic kidney failure N18.9 ; Anxiety F41.9 ; Chronic pain G89.29 ; Insomnia G47.00 ; Hyperlipidemia E78.5 ; HTN (hypertension) I10 and Thoracic back pain, unspecified back pain laterality, unspecified chronicity M54.6 [place] [address] [id number] [address] [place] [id number] Jul, [place] [address] [facility] [id number] [address] [place] [id number] Jul, [facility] [address] [id number] [address] [place] [id number] Jul, [place] [address] [facility] [id number] [address] [place] [id number] Jul, Anxiety F41.9 [facility] [address] [facility] [id number] [address] [place] [id number] Jul, Thoracic back pain, unspecif ied back pain laterality, unspecified chronicity M54.6 and Anxiety F41.9 [facility] [address] [id number] [address] [place] [id number] Jun, Thoracic back pain, unspecif ied back pain laterality, unspecified chronicity M54.6 and Anxiety F41.9 [facility] [address] [id number] [address] [place] [id number] May, Thoracic back pain, unspecif ied back pain laterality, unspecified chronicity M54.6 and Anxiety F41.9 [facility] [address] [id number] [address] [place] [id number] Apr, Thoracic back pain, unspecif ied back pain laterality, unspecified chronicity M54.6 and Anxiety F41.9 [place] [address] [id number] [address] [place] [address] Mar, [place] [address] [id number] [address] [place] [id number] Mar, Thoracic back pain, unspecif ied back pain laterality, unspecified chronicity M54.6 and Anxiety F41.9 [place] [address] [id number] [address] [place] [id number] Mar, Thoracic back pain, unspecif ied back pain laterality, unspecified chronicity M54.6 ; HTN (hypertension) I10 ; Hyperlipidemia E78.5 and Anxiety F41.9 [place] [address] [id number] [address] [place] [id number] Feb, Thoracic back pain, unspecif ied back pain laterality, unspecified chronicity M54.6 and Anxiety F41.9 [facility] [address] [id number] [address] [place] [id number] Nov, [facility] [address] [id number] [address] [place] [id number] Oct, [facility] [address] [facility] [id number] [address] [place] [id number] Oct, Thoracic back pain, unspecif ied back pain laterality, unspecified chronicity M54.6 [facility] [address] [place] [id number] [address] [place] [address] Oct, HTN (hypertension) I10 ; Con stipation K59.00 ; Hyperlipidemia E78.5 ; Thoracic back pain, unspecified back pain laterality, unspecified chronicity M54.6 ; Chronic pain G89.29 ; Anxiety F41.9 ; Chronic kidney failure N18.9 ; Environmental allergies Z91.09 ; Vitamin D deficiency E55.9 and Primary insomnia F51.01 [facility] [address] [facility] [id number] [address] [place] [address] Sep, Anxiety F41.9 [facility] [address] [facility] [id number] [address] [place] [address] Sep, [facility] [address] [place] [id number] [address] [place] [address] August, Anxiety F41.9 [facility] [address] [facility] [id number] [address] [place] [address] August, [facility] [address] [place] [id number] [address] [place] [id number] Jul, Anxiety F41.9 [facility] [address] [facility] [id number] [address] [place] [address] Jul, [facility] [address] [facility] [id number] [address] [place] [address] Jun, Anxiety F41.9 [facility] [address] [facility] [id number] [address] [place] [id number] Jun, [facility] [address] [facility] [id number] [address] [place] [id number] May, [facility] [address] [facility] [id number] [address] [place] [address] May, [facility] [address] [place] [id number] [address] [place] [address] May, [facility] [address] [facility] [id number] [address] [place] [id number] Apr, [facility] [address] [facility] [id number] [address] [place] [id number] Apr, [facility] [address] [facility] [id number] [address] [place] [id number] Apr, Anxiety F41.9 [facility] [address] [facility] [id number] [address] [place] [address] Apr, Anxiety F41.9 [facility] [address] [facility] [id number] [address] [place] [address] Apr, [facility] [address] [facility] [id number] [address] [place] [address] Mar, HTN (hypertension) I10 ; Phillip mor R25.1 ; Hypercholesterolemia E78.0 ; Constipation K59.00 ; Chronic pain G89.29 ; Hyperlipidemia E78.5 ; Insomnia G47.00 ; Anxiety F41.9 and Thoracic back pain, unspecified back pain laterality, unspecified chronicity M54.6 [facility] [address] [facility] [id number] [address] [place] [address] Mar, Tremor R25.1 ; HTN (hyperten stas) I10 ; Hypercholesterolemia E78.0 ; Constipation K59.00 ; Chronic pain G89.29 ; Hyperlipidemia E78.5 ; Insomnia G47.00 ; Anxiety F41.9 and Thoracic back pain, unspecified back pain laterality, unspecified chronicity M54.6 [facility] [address] [facility] [id number] [address] [place] [id number] Mar, [facility] [address] [place] [id number] [address] [place] [id number] Mar, [facility] [address] [facility] [id number] [address] [place] [id number] Feb, [facility] [address] [place] [id number] [address] [place] [id number] 13 Jan, 2016 [facility] [address] [id number] [address] [place] [id number] 10 Jan, 2016 [facility] [address] [id number] [address] [place] [id number] 15 Dec, 2015 [facility] [address] [id number] [address] [place] [id number] Nov, [facility] [address] [id number] [address] [place] [id number] Nov, [facility] [address] [id number] [address] [place] [address] Oct, Anxiety F41.9 [facility] [address] [facility] [id number] [address] [place] [address] Oct, Chronic pain G89.29 [facility] [address] [id number] [address] [place] [id number] Sep, [facility] [address] [id number] [address] [place] [id number] Sep, [facility] [address] [id number] [address] [place] [id number] Sep, [facility] [address] [id number] [address] [place] [address] Sep, [facility] [address] [id number] [address] [place] [id number] Sep, Chronic pain syndrome G89.4 [facility] [address] [id number] [address] [place] [id number] 15 Sep, 2015 HTN (hypertension) I10 ; Chr onic pain G89.29 ; Hypercholesterolemia E78.0 ; Chronic kidney failure N18.9 ; Constipation, unspecified constipation type K59.00 ; Anxiety F41.9 and Thoracic back pain, unspecified back pain laterality, unspecified chronicity M54.6 [facility] [address] [id number] [address] [place] [id number] August, Chronic pain syndrome G89.4 [facility] [address] [id number] [address] [place] [id number] August, Chronic pain syndrome G89.4 [facility] [address] [id number] [address] [place] [id number] Jul, Anxiety disorder, unspecifie d F41.9 and Chronic pain syndrome G89.4 [facility] [address] [id number] [address] [place] [phone] Jul, Insomnia, unspecified G47.00 and Chronic pain syndrome G89.4 [facility] [address] [id number] [address] [place] [id number] Jul, Allergic rhinitis J30.9 [facility] [address] [id number] [address] [place] [phone] Jul, Constipation, unspecified K5 9.00 [facility] [address] [id number] [address] [place] [id number] Jul, [facility] [address] [id number] [address] [place] [id number] Jun, [facility] [address] [id number] [address] [place] [phone] Jun, [facility] [address] [id number] [address] [place] [phone] Jun, [facility] [address] [id number] [address] [place] [id number] Jun, [facility] [address] [id number] [address] [place] [id number] Jun, [facility] [address] [facility] [id number] [address] [place] [id number] Jun, [facility] [address] [facility] [id number] [address] [place] [id number] May, [facility] [address] [facility] [id number] [address] [place] [id number] May, [facility] [id number] [place] [phone] May, Anxiety F41.9 ; Insomnia G47 .00 ; Hyperlipidemia E78.5 ; Chronic pain G89.29 ; HTN (hypertension) I10 ; Environmental allergies V15.09 and Constipation 564.00 [facility] [address] [facility] [id number] [address] [place] [id number] Apr, [facility] [address] [facility] [id number] [address] [place] [id number] Apr, [facility] [address] [id number] [address] [place] [phone] Apr, [facility] [facility] [address] [id number] [address] [place] [address] Mar, [facility] [address] [id number] [address] [place] [address] Mar, [facility] [address] [id number] [address] [place] [address] Mar, [facility] [id number] [place] [address] Feb, [facility] [address] [id number] [address] [place] [address] Feb, [facility] [address] [id number] [address] [place] [address] Feb, [facility] [address] [id number] [address] [place] [address] Jan, HTN (hypertension) I10 ; Con stipation K59.00 ; Chronic pain G89.29 ; Hyperlipidemia E78.5 ; Hypercholesterolemia E78.0 ; Insomnia G47.00 and Anxiety F41.9 [facility] [address] [id number] [address] [place] [address] Jan, [facility] [address] [facility] [id number] [address] [place] [address] Dec, [facility] [address] [facility] [id number] [address] [place] [address] Nov, [facility] [address] [facility] [id number] [address] [place] [address] Oct, Chronic kidney disease, unsp ecified 585.9 ; Chronic pain syndrome 338.4 ; Hyperlipidemia 272.4 and Essential hypertension 401.9 [facility] [address] [facility] [id number] [address] [place] [address] Oct, Chronic kidney disease 585.9 [facility] [address] [facility] [id number] [address] [place] [address] Oct, [facility] [address] [id number] [address] [place] [address] Oct, Chronic kidney disease, unsp ecified 585.9 ; Hypercalcemia 275.42 ; Hyperlipidemia 272.4 ; Essential hypertension 401.9 ; Chronic pain syndrome 338.4 ; Insomnia 780.52 ; Constipation 564.00 ; Environmental allergies V15.09 and Anxiety 300.00 [facility] [address] [facility] [id number] [address] [place] [address] Oct, Chronic kidney disease 585.9 [facility] [address] [facility] [id number] [address] [place] [address] Oct, [facility] [address] [id number] [address] [place] [address] 14 Oct, 2014 Chronic kidney disease 585.9 and Hyperlipidemia 272.4 [facility] [address] [facility] [id number] [address] [place] [address] Oct, [facility] [address] [facility] [id number] [address] [place] [address] Oct, [facility] [address] [id number] [address] [place] [address] Sep, [facility] [address] [id number] [address] [place] [address], [place] [address] Sep, [facility] [address] [id number] [address] [place] [address], [place] [address] Sep, Chronic kidney disease 585.9 and Hyperlipidemia 272.4 [facility] [address] [id number] [address] [place] [address], [place] [address] Sep, [facility] [address] [id number] [address] [place] [address], [place] [address] August, [facility] [address] [id number] [address] [place] [address], [place] [address] August, [facility] [address] [id number] [address] [place] [address], [place] [address] Jul, [facility] [address] [id number] [address] [place] [address], [place] [address] Jul, [facility] [address] [id number] [address] [place] [address], [place] [address] Jun, [facility] [address] [id number] [address] [place] [address], [place] [address] Jun, [facility] [address] [id number] [address] [place] [address], [place] [address] Jun, [facility] [address] [id number] [address] [place] [id number] Jun, [facility] [address] [id number] [address] [place] [address] Jun, [facility] [address] [id number] [address] [place] [address] Jun, [facility] [address] [id number] [address] [place] [address], [place] [address] Jun, [facility] [address] [id number] [address] [place] [address], [place] [address] Jun, [facility] [address] [id number] [address] [place] [address], [place] [address] 16 May, 2014 [facility] [address] [id number] [address] [place] [address], [place] [address] May, [facility] [address] [id number] [address] [place] [address], [place] [address] May, [facility] [address] [id number] [address] [place] [address], [place] [address] May, [facility] [address] [id number] [address] [place] [address], [place] [address] Apr, [facility] [address] [id number] [address] [place] [address], [place] [address] Apr, [facility] [address] [id number] [address] [place] [address], [place] [address] Apr, [facility] [address] [id number] [address] [place] [address], [place] [address] Apr, [facility] [address] [id number] [address] [place] [address], [place] [address] Apr, [facility] [address] [id number] [address] [place] [address], [place] [address] Apr, [facility] [address] [id number] [address] [place] [address], [place] [address] Apr, [facility] [address] [id number] [address] [place] [address], [place] [address] Apr, [facility] [address] [id number] [address] [place] [address], [place] [address] Apr, [facility] [address] [id number] [address] [place] [address], [place] [address] Apr, [facility] [address] [id number] [address] [place] [address], [place] [address] Apr, [facility] [address] [id number] [address] [place] [address], [place] [address] Mar, [facility] [address] [id number] [address] [place] [address], [place] [address] Mar, [facility] [address] [id number] [address] [place] [address], [place] [address] Feb, [facility] [address] [id number] [address] [place] [address], [place] [address] Feb, [facility] [address] [id number] [address] [place] [address], [place] [address] Feb, [facility] [address] [id number] [address] [place] [address], [place] [address] Feb, [facility] [address] [id number] [address] [place] [address], [place] [address] Feb, [facility] [address] [id number] [address] [place] [address], [place] [address] Feb, [facility] [address] [id number] [address] [place] [address], [place] [address] Feb, [facility] [address] [id number] [address] [place] [address], [place] [address] Feb, [facility] [address] [id number] [address] [place] [address], [place] [address] Feb, [facility] [address] [id number] [address] [place] [address], [place] [address] Feb, [facility] [address] [id number] [address] [place] [address] Jan, [facility] [address] [id number] [address] [place] [address], [place] [address] Jan, [facility] [address] [id number] [address] [place] [address], [place] [address] Jan, [facility] [address] [id number] [address] [place] [address], [place] [address] Jan, [facility] [address] [id number] [address] [place] [address], [place] [address] 24 Jan, 2014 [facility] [address] [id number] [address] [place] [address], [place] [address] 24 Jan, 2014 [facility] [address] [id number] [address] [place] [address], [place] [address] Jan, [facility] [address] [id number] [address] [place] [address], [place] [address] 17 Jan, 2014 [facility] [address] [id number] [address] [place] [address], [place] [address] 16 Jan, 2014 [facility] [address] [id number] [address] [place] [address], [place] [address] Jan, [facility] [address] [id number] [address] [place] [address], [place] [address] Jan, [facility] [address] [id number] [address] [place] [address], [place] [address] 26 Dec, 2013 [facility] [address] [id number] [address] [place] [address], [place] [address] 26 Dec, 2013 [facility] [address] [id number] [address] [place] [address], [place] [address] 19 Dec, 2013 [facility] [address] [id number] [address] [place] [address], [place] [address] 19 Dec, 2013 [facility] [address] [id number] [address] [place] [address], [place] [address] 18 Dec, 2013 [facility] [address] [id number] [address] [place] [address], [place] [address] 18 Dec, 2013 [facility] [address] [id number] [address] [place] [address], [place] [address] 03 Dec, 2013 [facility] [address] [id number] [address] [place] [address], [place] [address] 03 Dec, 2013 [facility] [address] [id number] [address] [place] [address], [place] [address] Nov, [facility] [address] [id number] [address] [place] [address], [place] [address] Nov, [facility] [address] [id number] [address] [place] [address], [place] [address] Nov, [facility] [address] [id number] [address] [place] [address], [place] [address] Nov, [facility] [address] [id number] [address] [place] [address], [place] [address] Nov, [facility] [address] [id number] [address] [place] [address], [place] [address] Nov, [facility] [address] [id number] [address] [place] [address], [place] [address] Nov, [facility] [address] [id number] [address] [place] [address], [place] [address] Nov, [facility] [address] [id number] [address] [place] [address], [place] [address] Oct, [facility] [address] [id number] [address] [place] [address], [place] [address] Oct, [facility] [address] [id number] [address] [place] [address], [place] [address] Oct, [facility] [address] [id number] [address] [place] [address], [place] [address] Oct, [facility] [address] [id number] [address] [place] [address], [place] [address] Sep, [facility] [address] [id number] [address] [place] [address], [place] [address] Sep, [facility] [address] [id number] [address] [place] [address], [place] [address] Sep, [facility] [address] [id number] [address] [place] [address], [place] [address] Sep, [facility] [address] [id number] [address] [place] [address], [place] [address] Sep, [facility] [address] [id number] [address] [place] [address], [place] [address] Sep, [facility] [address] [id number] [address] [place] [address], [place] [address] Sep, [facility] [address] [id number] [address] [place] [address], [place] [address] Sep, [facility] [address] [id number] [address] [place] [address], [place] [address] August, [facility] [address] [id number] [address] [place] [address], [place] [address] August, [facility] [address] [id number] [address] [place] [address], [place] [address] August, [facility] [address] [id number] [address] [place] [address], [place] [address] August, [facility] [address] [id number] [address] [place] [address], [place] [address] August, [facility] [address] [id number] [address] [place] [address], [place] [address] August, [facility] [address] [id number] [address] [place] [address], [place] [address] August, [facility] [address] [id number] [address] [place] [address], [place] [address] August, [facility] [address] [id number] [address] [place] [address], [place] [address] August, [facility] [address] [id number] [address] [place] [address], [place] [address] August, [facility] [address] [id number] [address] [place] [address], [place] [address] Jul, [facility] [address] [id number] [address] [place] [address], [place] [address] Jul, [facility] [address] [id number] [facility] [place] [address] Jul, [facility] [address] [id number] [facility] [place] [address] Jul, [facility] [address] [id number] [facility] [place] [address] Jul, [facility] [address] [id number] [address] [place] [address], [place] [address] Jul, [facility] [address] [id number] [address] [place] [address], [place] [address] Jul, [facility] [address] [id number] [address] [place] [address], [place] [address] Jul, [facility] [address] [id number] [address] [place] [address], [place] [address] Jun, [facility] [address] [id number] [address] [place] [address], [place] [address] Jun, [facility] [address] [id number] [address] [place] [address], [place] [address] Jun, [facility] [address] [id number] [address] [place] [address], [place] [address] Jun, [facility] [address] [id number] [address] [place] [address], [place] [address] Jun, [facility] [address] [id number] [address] [place] [address], [place] [address] Jun, [facility] [address] [id number] [address] [place] [address], [place] [address] May, [facility] [address] [id number] [address] [place] [address], [place] [address] May, [facility] [address] [id number] [address] [place] [address], [place] [address] May, [facility] [address] [id number] [address] [place] [address], [place] [address] May, [facility] [address] [id number] [address] [place] [address], [place] [address] May, [facility] [address] [id number] [address] [place] [address], [place] [address] May, [facility] [address] [id number] [address] [place] [address], [place] [address] May, [facility] [address] [id number] [address] [place] [address], [place] [address] Apr, [facility] [address] [id number] [address] [place] [address], [place] [address] Apr, [facility] [address] [id number] [address] [place] [address], [place] [address] Apr, [facility] [address] [id number] [address] [place] [address], [place] [address] Apr, [facility] [address] [id number] [address] [place] [address], [place] [address] Apr, [facility] [address] [id number] [address] [place] [address], [place] [address] Apr, [facility] [address] [id number] [address] [place] [address], [place] [address] Mar, [facility] [address] [id number] [address] [place] [address], [place] [address] Mar, [facility] [address] [id number] [address] [place] [address], [place] [address] Mar, [facility] [address] [id number] [address] [place] [address], [place] [address] Mar, [facility] [address] [id number] [address] [place] [address], [place] [address] Mar, [facility] [address] [id number] [address] [place] [address], [place] [address] Mar, [facility] [address] [id number] [address] [place] [address], [place] [address] 16 Mar, 2013 [facility] [address] [id number] [address] [place] [address], [place] [address] 16 Mar, 2013 [facility] [address] [id number] [address] [place] [address], [place] [address] Mar, [facility] [address] [id number] [address] [place] [address], [place] [address] Mar, [facility] [address] [id number] [address] [place] [address], [place] [address] Feb, [facility] [address] [id number] [address] [place] [address], [place] [address] Feb, [facility] [address] [id number] [address] [place] [address], [place] [address] Feb, [facility] [address] [id number] [address] [place] [address], [place] [address] Feb, [facility] [address] [id number] [address] [place] [address], [place] [address] Feb, [facility] [address] [id number] [address] [place] [address], [place] [address] Feb, [facility] [address] [id number] [address] [place] [address], [place] [address] Feb, [facility] [address] [id number] [address] [place] [address], [place] [address] Feb, [facility] [address] [id number] [address] [place] [address], [place] [address] Feb, [facility] [address] [id number] [address] [place] [address], [place] [address] Feb, [facility] [address] [id number] [address] [place] [address], [place] [address] Jan, [facility] [address] [id number] [address] [place] [address], [place] [address] Jan, [facility] [address] [id number] [address] [place] [address], [place] [address] Jan, [facility] [address] [id number] [address] [place] [address], [place] [address] Jan, [facility] [address] [id number] [address] [place] [address], [place] [address] Jan, [facility] [address] [id number] [address] [place] [address], [place] [address] Jan, [facility] [address] [id number] [address] [place] [address], [place] [address] Jan, [facility] [address] [id number] [address] [place] [address], [place] [address] Jan, [facility] [address] [id number] [address] [place] [address], [place] [address] Jan, [facility] [address] [id number] [address] [place] [address], [place] [address] Dec, [facility] [address] [id number] [address] [place] [address], [place] [address] Dec, [facility] [address] [id number] [address] [place] [address], [place] [address] Dec, [facility] [address] [id number] [address] [place] [address], [place] [address] Dec, [facility] [address] [id number] [address] [place] [address], [place] [address] Nov, [facility] [address] [id number] [address] [place] [address], [place] [address] Nov, [facility] [address] [id number] [address] [place] [address], [place] [address] Nov, [facility] [address] [id number] [address] [place] [address], [place] [address] Nov, [facility] [address] [id number] [address] [place] [address], [place] [address] Nov, [facility] [address] [id number] [address] [place] [address], [place] [address] Nov, [facility] [address] [id number] [address] [place] [address], [place] [address] Oct, [facility] [address] [id number] [address] [place] [address], [place] [address] Oct, [facility] [address] [id number] [address] [place] [address], [place] [address] Oct, [facility] [address] [id number] [address] [place] [address], [place] [address] Oct, [facility] [address] [id number] [address] [place] [address], [place] [address] Sep, [facility] [address] [id number] [address] [place] [address], [place] [address] Sep, [facility] [address] [id number] [address] [place] [address], [place] [address] Sep, [facility] [address] [id number] [address] [place] [address], [place] [address] Sep, [facility] [address] [id number] [address] [place] [address], [place] [address] Sep, [facility] [address] [id number] [address] [place] [address], [place] [address] August, [facility] [address] [id number] [address] [place] [address], [place] [address] August, [facility] [address] [id number] [address] [place] [address], [place] [address] Jul, [facility] [address] [id number] [address] [place] [address], [place] [address] Jul, [facility] [address] [id number] [address] [place] [address], [place] [address] 15 Jul, 2012 [facility] [address] [id number] [address] [place] [address], [place] [address] Jul, [facility] [address] [id number] [address] [place] [address], [place] [address] Jul, [facility] [address] [id number] [address] [place] [address], [place] [address] 26 Jun, 2012 [facility] [address] [id number] [address] [place] [address], [place] [address] Jun, [facility] [address] [id number] [address] [place] [address], [place] [address] 15 Jun, 2012 [facility] [address] [id number] [address] [place] [address], [place] [address] 06 Jun, 2012 [facility] [address] [id number] [address] [place] [address], [place] [address] Jun, [facility] [address] [id number] [address] [place] [address], [place] [address] 28 May, 2012 [facility] [address] [id number] [address] [place] [address], [place] [address] 27 May, 2012 [facility] [address] [id number] [address] [place] [address], [place] [address] 25 May, 2012 [facility] [address] [id number] [address] [place] [address], [place] [address] May, [facility] [address] [id number] [address] [place] [address], [place] [address] 20 May, 2012 [facility] [address] [id number] [address] [place] [address], [place] [address] 14 May, 2012 [facility] [address] [id number] [address] [place] [address], [place] [address] 13 May, 2012 [facility] [address] [id number] [address] [place] [address], [place] [address] 08 May, 2012 [facility] [address] [id number] [address] [place] [address], [place] [address] 04 May, 2012 [facility] [address] [id number] [address] [place] [address], [place] [address] Apr, [facility] [address] [id number] [address] [place] [address], [place] [address] Apr, [facility] [address] [id number] [address] [place] [address], [place] [address] Apr, [facility] [address] [id number] [address] [place] [address], [place] [address] Apr, [facility] [address] [id number] [address] [place] [address], [place] [address] Apr, [facility] [address] [id number] [address] [place] [address], [place] [address] Mar, [facility] [address] [id number] [address] [place] [address], [place] [address] Mar, [facility] [address] [id number] [address] [place] [address], [place] [address] Mar, [facility] [address] [id number] [address] [place] [address], [place] [address] Mar, [facility] [address] [id number] [address] [place] [address], [place] [address] Mar, [facility] [address] [id number] [address] [place] [address], [place] [address] Mar, [facility] [address] [id number] [address] [place] [address], [place] [address] Mar, [facility] [address] [id number] [address] [place] [address], [place] [address] Mar, [facility] [address] [id number] [address] [place] [address], [place] [address] Mar, [facility] [address] [id number] [address] [place] [address], [place] [address] Mar, [facility] [address] [id number] [address] [place] [address], [place] [address] 30 Feb, 2012 [facility] [address] [id number] [address] [place] [address], [place] [address] Feb, [facility] [address] [id number] [address] [place] [address], [place] [address] Feb, [facility] [address] [id number] [address] [place] [address], [place] [address] Feb, [facility] [address] [id number] [address] [place] [address], [place] [address] Feb, [facility] [address] [id number] [address] [place] [address], [place] [address] Feb, [facility] [address] [id number] [address] [place] [address], [place] [address] Feb, [facility] [address] [id number] [address] [place] [address], [place] [address] Feb, [facility] [address] [id number] [address] [place] [address], [place] [address] Feb, [facility] [address] [id number] [address] [place] [address], [place] [address] 16 Feb, 2012 [facility] [address] [id number] [address] [place] [address], [place] [address] Feb, [facility] [address] [id number] [address] [place] [address], [place] [address] Feb, [facility] [address] [id number] [address] [place] [address], [place] [address] Feb, [facility] [address] [id number] [address] [place] [address], [place] [address] Feb, [facility] [address] [id number] [address] [place] [address], [place] [address] Feb, [facility] [address] [id number] [address] [place] [address] 08 Feb, 2012 [facility] [address] [id number] [address] [place] [address], [place] [address] 07 Feb, 2012 [facility] [address] [id number] [address] [place] [address], [place] [address] Feb, [facility] [address] [id number] [address] [place] [address], [place] [address] Jan, [facility] [address] [id number] [address] [place] [address] Jan, [facility] [address] [id number] [address] [place] [address], [place] [address] Jan, [facility] [address] [id number] [address] [place] [address] Jan, [facility] [address] [id number] [address] [place] [address] Jan, [facility] [address] [id number] [address] [place] [address] Jan, [facility] [address] [id number] [address] [place] [address] Jan, [facility] [address] [id number] [address] [place] [address] Jan, [facility] [address] [id number] [address] [place] [address] 08 Jan, 2012 [facility] [address] [id number] [address] [place] [address] Jan, [facility] [address] [id number] [address] [place] [address], [place] [address] 24 Dec, 2011 [facility] [address] [id number] [address] [place] [address] 18 Dec, 2011 [facility] [address] [id number] [address] [place] [address] 04 Dec, 2011 [facility] [address] [id number] [address] [place] [address], [place] [address] Dec, [facility] [address] [id number] [address] [place] [address], [place] [address] Nov, [facility] [address] [id number] [address] [place] [address], [place] [address] Nov, [facility] [address] [id number] [address] [place] [address], [place] [address] Nov, [facility] [address] [id number] [address] [place] [address], [place] [address] Nov, [facility] [address] [id number] [address] [place] [address], [place] [address] Nov, [facility] [address] [id number] [address] [place] [address], [place] [address] Nov, [facility] [address] [id number] [address] [place] [address], [place] [address] Oct, [facility] [address] [id number] [address] [place] [address], [place] [address] Oct, [facility] [address] [id number] [address] [place] [address], [place] [address] Oct, [facility] [address] [id number] [address] [place] [address], [place] [address] Oct, [facility] [address] [id number] [address] [place] [address], [place] [address] Oct, [facility] [address] [id number] [address] [place] [address], [place] [address] Sep, [facility] [address] [id number] [address] [place] [address], [place] [address] Sep, [facility] [address] [id number] [address] [place] [address], [place] [address] Sep, [facility] [address] [id number] [address] [place] [address], [place] [address] Sep, [facility] [address] [id number] [address] [place] [address], [place] [address] Sep, [facility] [address] [id number] [address] [place] [address], [place] [address] August, [facility] [address] [id number] [address] [place] [address], [place] [address] August, [facility] [address] [id number] [address] [place] [address], [place] [address] August, [facility] [address] [id number] [address] [place] [address], [place] [address] August, [facility] [address] [id number] [address] [place] [address], [place] [address] Jul, [facility] [address] [id number] [address] [place] [address], [place] [address] Jul, [facility] [address] [id number] [address] [place] [address], [place] [address] Jul, [facility] [address] [id number] [address] [place] [address], [place] [address] Jul, [facility] [address] [id number] [address] [place] [address], [place] [address] Jul, [facility] [address] [id number] [address] [place] [address], [place] [address] Jul, [facility] [address] [id number] [address] [place] [address], [place] [address] 11 Jul, 2011 [facility] [address] [id number] [address] [place] [address], [place] [address] 10 Jul, 2011 [facility] [address] [id number] [address] [place] [address], [place] [address] 09 Jul, 2011 [facility] [address] [id number] [address] [place] [address], [place] [address] 07 Jul, 2011 [facility] [address] [id number] [address] [place] [address], [place] [address] 05 Jul, 2011 [facility] [address] [id number] [address] [place] [address], [place] [address] Jul, [facility] [address] [id number] [address] [place] [address], [place] [address] Jul, [facility] [address] [id number] [address] [place] [address], [place] [address] Jul, [facility] [address] [id number] [address] [place] [address], [place] [address] 28 Jun, 2011 [facility] [address] [id number] [address] [place] [address], [place] [address] 27 Jun, 2011 [facility] [address] [id number] [address] [place] [address], [place] [address] 20 Jun, 2011 [facility] [address] [id number] [address] [place] [address], [place] [address] 16 Jun, 2011 [facility] [address] [id number] [address] [place] [address], [place] [address] May, [facility] [address] [id number] [address] [place] [address], [place] [address] 16 May, 2011 [facility] [address] [id number] [address] [place] [address], [place] [address] May, [facility] [address] [id number] [address] [place] [address], [place] [address] Apr, [facility] [address] [id number] [address] [place] [address], [place] [address] 18 Apr, 2011 [facility] [address] [id number] [address] [place] [address], [place] [address] 13 Apr, 2011 [facility] [address] [id number] [address] [place] [address], [place] [address] Apr, [facility] [address] [id number] [address] [place] [address], [place] [address] Apr, [facility] [address] [id number] [address] [place] [address], [place] [address] Mar, [facility] [address] [id number] [address] [place] [address], [place] [address] Mar, [facility] [address] [id number] [address] [place] [address], [place] [address] Mar, [facility] [address] [id number] [address] [place] [address], [place] [address] Mar, [facility] [address] [id number] [address] [place] [address], [place] [address] 16 Mar, 2011 [facility] [address] [id number] [address] [place] [address], [place] [address] Mar, [facility] [address] [id number] [address] [place] [address], [place] [address] Mar, [facility] [address] [id number] [address] [place] [address], [place] [address] Feb, [facility] [address] [id number] [address] [place] [address], [place] [address] Feb, [facility] [address] [id number] [address] [place] [address], [place] [address] Feb, [facility] [address] [id number] [address] [place] [address], [place] [address] Feb, [facility] [address] [id number] [address] [place] [address], [place] [address] 16 Feb, 2011 [facility] [address] [id number] [address] [place] [address], [place] [address] 14 Feb, 2011 [facility] [address] [id number] [address] [place] [address], [place] [address] 10 Feb, 2011 [facility] [address] [id number] [address] [place] [address], [place] [address] 31 Jan, 2011 [facility] [address] [id number] [address] [place] [address], [place] [address] 31 Jan, 2011 [facility] [address] [id number] [address] [place] [address], [place] [address] 31 Jan, 2011 [facility] [address] [id number] [address] [place] [address], [place] [address] 18 Jan, 2011 [facility] [address] [id number] [address] [place] [address], [place] [address] 17 Jan, 2011 [facility] [address] [id number] [address] [place] [address], [place] [address] 17 Jan, 2011 [facility] [address] [id number] [address] [place] [address], [place] [address] 17 Jun, 2010 [facility] [address] [id number] [address] [place] [address], [place] [address] 30 Mar, 2010 [facility] [address] [id number] [address] [place] [address], [place] [address] 20 Mar, 2010 [facility] [address] [id number] [address] [place] [address], [place] [address] 14 Mar, 2010 [facility] [address] [id number] [address] [place] [address], [place] [address] 14 Mar, 2010 [facility] [address] [id number] [address] [place] [address], [place] [address] 13 Mar, 2010 [facility] [address] [id number] [address] [place] [address], [place] [address] 07 Mar, 2010 [facility] [address] [id number] [address] [place] [address], [place] [address] 02 Mar, 2010 [facility] [address] [id number] [address] [place] [address], [place] [address] Mar, [facility] [address] [id number] [address] [place] [address], [place] [address] 30 Feb, 2010 [facility] [address] [id number] [address] [place] [address], [place] [address] Feb, [facility] [address] [id number] [address] [place] [address], [place] [address] 17 Feb, 2010 [facility] [address] [id number] [address] [place] [address], [place] [address] 17 Feb, 2010 [facility] [address] [id number] [address] [place] [address], [place] [address] 16 Feb, 2010 [facility] [address] [id number] [address] [place] [address], [place] [address] 08 Feb, 2010 [facility] [address] [id number] [address] [place] [address], [place] [address] 04 Feb, 2010 [facility] [address] [id number] [address] [place] [address], [place] [address] Feb, [facility] [address] [id number] [address] [place] [address], [place] [address] 28 Jan, 2010 [facility] [address] [id number] [address] [place] [address], [place] [address] Jan, [facility] [address] [id number] [address] [place] [address], [place] [address] 25 Jan, 2010 [facility] [address] [id number] [address] [place] [address], [place] [address] 18 Jan, 2010 [facility] [address] [id number] [address] [place] [address], [place] [address] 29 Mar, 2009 [facility] [address] [id number] [address] [place] [address], [place] [address] 22 Mar, 2009 [facility] [address] [id number] [address] [place] [address], [place] [address] 19 Mar, 2009 [facility] [address] [id number] [address] [place] [address], [place] [address] 19 Mar, 2009 [facility] [address] [id number] [address] [place] [address], [place] [address] 14 Mar, 2009 [facility] [address] [id number] [address] [place] [address], [place] [address] Mar, [facility] [address] [facility] [id number] [address] [place] [address] Feb, [facility] [address] [facility] [id number] [address] [place] [address] Feb, [facility] [address] [facility] [id number] [address] [place] [address] Jan, [facility] [address] [facility] [id number] [address] [place] [address] Sep, [facility] [address] [facility] [id number] [address] [place] [address] May, IMMUNIZATIONS No Known Immunizations SOCIAL HISTORY [...] Surgical History Left ear surgery Hospitalization History [facility] in [place]- Spontane ous Pneumothorax Hospitalization History [facility]- Colon resection Hospitalization History [facility] - diarrhea/ couldnt urin ate nov 2017 Hospitalization History pain /hip to foot right side 10/16/19 19
--- OUTSIDE RECORDS SUMMARY | 2019-08-28 09:07 | XMS REPORT ---
Author Author Dixon Lundberg Doctor Organization [facility] Address Unknown Phone Unavailable Care Team Providers Care Director Of Individual Giving Name Role Phone Migration, Doctor Unavailable Unavailable PROBLEMS Type Condition ICD9-CM Code CHW78-AS Code Onset Dates Condition S tatus SNOMED Code Problem Insomnia G47.00 Active 389428303 Problem Anxiety F41.9 Active 70247316 Problem HTN (hypertension) I10 Active 3 0907669 Problem Hyperlipidemia E78.5 Active 84552 004 Problem Thoracic back pain, unspecif ied back pain laterality, unspecified chronicity M54.6 Active 873888429 Problem Vitamin D deficiency E55.9 Active 10368751 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 66496980 Problem Chronic pain G89.29 Active 3111334 1 Problem Schizophrenia, unspecified type F20.9 Active 07136565 Problem Constipation K59.00 Active 1679547 8 Problem Environmental allergies Z91.09 Active 673100553 Problem Primary insomnia F51.01 Active 397 2004 Problem Chronic kidney disease, stage III (moderate) N18.3 Active 877406075 Problem Vision loss H54.7 Active 40381453 1 ALLERGIES No Information ENCOUNTERS Encounter Location Date Diagnosis [place] [address] [facility] [id number] [address] [place] [phone] Nov, Thoracic back pain, unspecif ied back pain laterality, unspecified chronicity M54.6 [facility] [address] [facility] [id number] [address] [place] [phone] Nov, Anxiety F41.9 and Thoracic b ack pain, unspecified back pain laterality, unspecified chronicity M54.6 [facility] [address] [facility] [id number] [address] [place] [phone] Nov, [facility] [address] [facility] [id number] [address] [place] [phone] Nov, [facility] [address] [id number] [address] [place] [phone] Nov, [facility] [address] [id number] [address] [place] [id number] Oct, Thoracic back pain, unspecif ied back pain laterality, unspecified chronicity M54.6 [facility] [address] [id number] [address] [place] [id number] Oct, Anxiety F41.9 and Thoracic b ack pain, unspecified back pain laterality, unspecified chronicity M54.6 [facility] [address] [id number] [address] [place] [phone] Oct, Schizophrenia, unspecified t ype F20.9 and Acute kidney injury N17.9 [facility] [address] [id number] [address] [place] [phone] Oct, [facility] [address] [id number] [address] [place] [phone] Oct, [facility] [address] [id number] [address] [place] [phone] Oct, Thoracic back pain, unspecif ied back pain laterality, unspecified chronicity M54.6 [facility] [address] [id number] [address] [place] [phone] Oct, [facility] [address] [id number] [address] [place] [id number] Oct, [facility] [address] [id number] [address] [place] [phone] Sep, Anxiety F41.9 [facility] [address] [id number] [address] [place] [phone] Sep, [facility] [address] [id number] [address] [place] [phone] Sep, Thoracic back pain, unspecif ied back pain laterality, unspecified chronicity M54.6 [facility] [address] [id number] [address] [place] [phone] Sep, [facility] [address] [facility] [id number] [address] [place] [phone] Sep, [facility] [address] [facility] [id number] [address] [place] [phone] Sep, [facility] [address] [facility] [id number] [address] [place] [phone] Sep, [facility] [address] [id number] [address] [place] [phone] Sep, [facility] [address] [facility] [id number] [address] [place] [phone] Sep, [facility] [address] [facility] [id number] [address] [place] [id number] Sep, Chronic pain G89.29 ; Chroni c kidney disease, stage III (moderate) N18.3 ; Hyperlipidemia E78.5 and Insomnia G47.00 [facility] [address] [facility] [id number] [address] [place] [phone] Sep, Thoracic back pain, unspecif ied back pain laterality, unspecified chronicity M54.6 [facility] [address] [facility] [id number] [address] [place] [phone] August, Anxiety F41.9 [facility] [address] [facility] [id number] [address] [place] [id number] August, Thoracic back pain, unspecif ied back pain laterality, unspecified chronicity M54.6 and Anxiety F41.9 [facility] [address] [facility] [id number] [address] [place] [phone] August, 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 [facility] [address] [facility] [id number] [address] [place] [phone] August, 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 [facility] [address] [facility] [id number] [address] [place] [phone] August, [facility] [address] [facility] [id number] [address] [place] [phone] August, [facility] [address] [id number] [address] [place] [phone] August, Thoracic back pain, unspecif ied back pain laterality, unspecified chronicity M54.6 [facility] [address] [id number] [address] [place] [phone] August, [facility] [address] [id number] [address] [place] [phone] August, Anxiety F41.9 and Thoracic b ack pain, unspecified back pain laterality, unspecified chronicity M54.6 [facility] [address] [id number] [address] [place] [phone] Jul, [facility] [address] [id number] [address] [place] [id number] Jul, Thoracic back pain, unspecif ied back pain laterality, unspecified chronicity M54.6 [facility] [address] [id number] [address] [place] [phone] Jun, Anxiety F41.9 and Thoracic b ack pain, unspecified back pain laterality, unspecified chronicity M54.6 [facility] [address] [id number] [address] [place] [phone] Jun, Anxiety F41.9 and Thoracic b ack pain, unspecified back pain laterality, unspecified chronicity M54.6 [facility] [address] [id number] [address] [place] [phone] Jun, Thoracic back pain, unspecif ied back pain laterality, unspecified chronicity M54.6 [facility] [address] [id number] [address] [place] [phone] Jun, Anxiety F41.9 and Thoracic b ack pain, unspecified back pain laterality, unspecified chronicity M54.6 [facility] [address] [id number] [address] [place] [phone] May, [facility] [address] [id number] [address] [place] [phone] May, [facility] [address] [id number] [address] [place] [phone] 08 May, 2018 [facility] [address] [id number] [address] [place] [phone] May, Anxiety F41.9 and Encounter for medication monitoring Z51.81 [facility] [address] [id number] [address] [place] [phone] 05 May, 2018 Anxiety F41.9 and Thoracic b ack pain, unspecified back pain laterality, unspecified chronicity M54.6 [place] [address] [id number] [address] [place] [phone] Apr, Hyperlipidemia 272.4 [place] [address] [id number] [address] [place] [phone] Apr, Chronic pain G89.29 ; Anxiet y F41.9 ; Cervical radiculopathy M54.12 and Vision loss H54.7 [facility] [address] [id number] [address] [place] [phone] Apr, [facility] [address] [id number] [address] [place] [phone] Apr, Anxiety F41.9 and Thoracic b ack pain, unspecified back pain laterality, unspecified chronicity M54.6 [facility] [address] [id number] [address] [place] [phone] 17 Mar, 2018 [facility] [address] [id number] [address] [place] [phone] Mar, Anxiety F41.9 and Thoracic b ack pain, unspecified back pain laterality, unspecified chronicity M54.6 [facility] [address] [id number] [address] [place] [phone] Feb, Anxiety F41.9 and Thoracic b ack pain, unspecified back pain laterality, unspecified chronicity M54.6 [facility] [address] [id number] [address] [place] [phone] 07 Feb, 2018 Thoracic back pain, unspecif ied back pain laterality, unspecified chronicity M54.6 [facility] [address] [id number] [address] [place] [phone] 29 Jan, 2018 [facility] [address] [id number] [address] [place] [phone] Jan, Anxiety F41.9 and Thoracic b ack pain, unspecified back pain laterality, unspecified chronicity M54.6 [facility] [address] [id number] [address] [place] [phone] 19 Dec, 2017 Diarrhea of presumed infecti ous origin R19.7 [facility] [address] [id number] [address] [place] [phone] 19 Dec, 2017 Diarrhea of presumed infecti ous origin R19.7 [facility] [address] [id number] [address] [place] [id number] 18 Dec, 2017 Thoracic back pain, unspecif ied back pain laterality, unspecified chronicity M54.6 [facility] [address] [id number] [address] [place] [phone] 17 Dec, 2017 [facility] [address] [id number] [address] [place] [phone] 17 Dec, 2017 Anxiety F41.9 and Thoracic b ack pain, unspecified back pain laterality, unspecified chronicity M54.6 [facility] [address] [id number] [address] [place] [phone] 13 Dec, 2017 Diarrhea of presumed infecti ous origin R19.7 [facility] [address] [id number] [address] [place] [phone] 13 Dec, 2017 [facility] [address] [id number] [address] [place] [phone] 12 Dec, 2017 Anxiety F41.9 and Thoracic b ack pain, unspecified back pain laterality, unspecified chronicity M54.6 [place] [address] [phone] Dec, Anxiety F41.9 and Thoracic b ack pain, unspecified back pain laterality, unspecified chronicity M54.6 [facility] [employer] [address] [place] [id number] Dec, Diarrhea of presumed infectious origin R 19.7 ; Anxiety F41.9 ; Thoracic back pain, unspecified back pain laterality, unspecified chronicity M54.6 and HTN (hypertension) I10 [place] [address] [phone] Dec, Anxiety F41.9 [facility] [employer] [address] [place] [id number] Dec, Anxiety F41.9 ; Diarrhea of presumed inf ectious origin R19.7 ; Generalized abdominal pain R10.84 and Localized edema R60.0 [place] [address] [place] [id number] [place] [phone] Nov, [facility] [employer] [address] [place] [id number] Nov, Anxiety F41.9 ; Urinary retention R33.9 ; Diarrhea of presumed infectious origin R19.7 ; Weakness R53.1 ; Acute kidney failure, unspecified N17.9 ; Chronic kidney disease, stage III (moderate) N18.3 and Thoracic back pain, unspecified back pain laterality, unspecified chronicity M54.6 [place] [address] [place] [id number] [address] [place] [phone] Oct, Thoracic back pain, unspecif ied back pain laterality, unspecified chronicity M54.6 and Anxiety F41.9 [place] [address] [place] [id number] [address] [place] [phone] Sep, Thoracic back pain, unspecif ied back pain laterality, unspecified chronicity M54.6 and Anxiety F41.9 [place] [address] [id number] [address] [place] [phone] Sep, Thoracic back pain, unspecif ied back pain laterality, unspecified chronicity M54.6 ; Anxiety F41.9 and Encounter for medication monitoring Z51.81 [facility] [address] [id number] [address] [place] [phone] August, [facility] [address] [facility] [id number] [address] [place] [phone] August, Thoracic back pain, unspecif ied back pain laterality, unspecified chronicity M54.6 and Anxiety F41.9 [place] [address] [facility] [id number] [address] [place] [phone] August, Hyperlipidemia E78.5 and HTN (hypertension) I10 [place] [address] [facility] [id number] [address] [place] [phone] August, [place] [address] [facility] [id number] [address] [place] [phone] August, Medicare welcome exam Z00.00 ; Chronic kidney failure N18.9 ; Anxiety F41.9 ; Chronic pain G89.29 ; Insomnia G47.00 ; Hyperlipidemia E78.5 ; HTN (hypertension) I10 and Thoracic back pain, unspecified back pain laterality, unspecified chronicity M54.6 [place] [address] [id number] [address] [place] [phone] Jul, [place] [address] [facility] [id number] [address] [place] [phone] Jul, [facility] [address] [id number] [address] [place] [phone] Jul, [place] [address] [facility] [id number] [address] [place] [phone] Jul, Anxiety F41.9 [facility] [address] [facility] [id number] [address] [place] [id number] Jul, Thoracic back pain, unspecif ied back pain laterality, unspecified chronicity M54.6 and Anxiety F41.9 [facility] [address] [id number] [address] [place] [phone] Jun, Thoracic back pain, unspecif ied back pain laterality, unspecified chronicity M54.6 and Anxiety F41.9 [facility] [address] [id number] [address] [place] [phone] May, Thoracic back pain, unspecif ied back pain laterality, unspecified chronicity M54.6 and Anxiety F41.9 [facility] [address] [id number] [address] [place] [phone] Apr, Thoracic back pain, unspecif ied back pain laterality, unspecified chronicity M54.6 and Anxiety F41.9 [place] [address] [id number] [address] [place] [phone] Mar, [place] [address] [id number] [address] [place] [phone] Mar, Thoracic back pain, unspecif ied back pain laterality, unspecified chronicity M54.6 and Anxiety F41.9 [place] [address] [id number] [address] [place] [phone] Mar, Thoracic back pain, unspecif ied back pain laterality, unspecified chronicity M54.6 ; HTN (hypertension) I10 ; Hyperlipidemia E78.5 and Anxiety F41.9 [place] [address] [id number] [address] [place] [phone] Feb, Thoracic back pain, unspecif ied back pain laterality, unspecified chronicity M54.6 and Anxiety F41.9 [facility] [address] [id number] [address] [place] [phone] Nov, [facility] [address] [id number] [address] [place] [phone] Oct, [facility] [address] [facility] [id number] [address] [place] [phone] Oct, Thoracic back pain, unspecif ied back pain laterality, unspecified chronicity M54.6 [facility] [address] [place] [id number] [address] [place] [phone] Oct, HTN (hypertension) I10 ; Con stipation K59.00 ; Hyperlipidemia E78.5 ; Thoracic back pain, unspecified back pain laterality, unspecified chronicity M54.6 ; Chronic pain G89.29 ; Anxiety F41.9 ; Chronic kidney failure N18.9 ; Environmental allergies Z91.09 ; Vitamin D deficiency E55.9 and Primary insomnia F51.01 [facility] [address] [facility] [id number] [address] [place] [phone] Sep, Anxiety F41.9 [facility] [address] [facility] [id number] [address] [place] [phone] Sep, [facility] [address] [place] [id number] [address] [place] [phone] August, Anxiety F41.9 [facility] [address] [facility] [id number] [address] [place] [phone] August, [facility] [address] [place] [id number] [address] [place] [phone] Jul, Anxiety F41.9 [facility] [address] [facility] [id number] [address] [place] [phone] Jul, [facility] [address] [facility] [id number] [address] [place] [phone] Jun, Anxiety F41.9 [facility] [address] [facility] [id number] [address] [place] [phone] Jun, [facility] [address] [facility] [id number] [address] [place] [phone] May, [facility] [address] [facility] [id number] [address] [place] [phone] May, [facility] [address] [place] [id number] [address] [place] [phone] May, [facility] [address] [facility] [id number] [address] [place] [phone] Apr, [facility] [address] [facility] [id number] [address] [place] [phone] Apr, [facility] [address] [facility] [id number] [address] [place] [phone] Apr, Anxiety F41.9 [facility] [address] [facility] [id number] [address] [place] [phone] Apr, Anxiety F41.9 [facility] [address] [facility] [id number] [address] [place] [phone] Apr, [facility] [address] [facility] [id number] [address] [place] [id number] Mar, HTN (hypertension) I10 ; Phillip mor R25.1 ; Hypercholesterolemia E78.0 ; Constipation K59.00 ; Chronic pain G89.29 ; Hyperlipidemia E78.5 ; Insomnia G47.00 ; Anxiety F41.9 and Thoracic back pain, unspecified back pain laterality, unspecified chronicity M54.6 [facility] [address] [facility] [id number] [address] [place] [id number] Mar, Tremor R25.1 ; HTN (hyperten stas) I10 ; Hypercholesterolemia E78.0 ; Constipation K59.00 ; Chronic pain G89.29 ; Hyperlipidemia E78.5 ; Insomnia G47.00 ; Anxiety F41.9 and Thoracic back pain, unspecified back pain laterality, unspecified chronicity M54.6 [facility] [address] [facility] [id number] [address] [place] [phone] Mar, [facility] [address] [place] [id number] [address] [place] [id number] Mar, [facility] [address] [facility] [id number] [address] [place] [phone] Feb, [facility] [address] [place] [id number] [address] [place] [id number] 13 Jan, 2016 [facility] [address] [id number] [address] [place] [phone] 10 Jan, 2016 [facility] [address] [id number] [address] [place] [phone] 15 Dec, 2015 [facility] [address] [id number] [address] [place] [phone] Nov, [facility] [address] [id number] [address] [place] [phone] Nov, [facility] [address] [id number] [address] [place] [phone] Oct, Anxiety F41.9 [facility] [address] [facility] [id number] [address] [place] [phone] Oct, Chronic pain G89.29 [facility] [address] [id number] [address] [place] [id number] Sep, [facility] [address] [id number] [address] [place] [phone] Sep, [facility] [address] [id number] [address] [place] [phone] Sep, [facility] [address] [id number] [address] [place] [phone] Sep, [facility] [address] [id number] [address] [place] [id number] Sep, Chronic pain syndrome G89.4 [facility] [address] [id number] [address] [place] [id number] 15 Sep, 2015 HTN (hypertension) I10 ; Chr onic pain G89.29 ; Hypercholesterolemia E78.0 ; Chronic kidney failure N18.9 ; Constipation, unspecified constipation type K59.00 ; Anxiety F41.9 and Thoracic back pain, unspecified back pain laterality, unspecified chronicity M54.6 [facility] [address] [id number] [address] [place] [id number] August, Chronic pain syndrome G89.4 [facility] [address] [id number] [address] [place] [id number] August, Chronic pain syndrome G89.4 [facility] [address] [id number] [address] [place] [id number] Jul, Anxiety disorder, unspecifie d F41.9 and Chronic pain syndrome G89.4 [facility] [address] [id number] [address] [place] [id number] Jul, Insomnia, unspecified G47.00 and Chronic pain syndrome G89.4 [facility] [address] [id number] [address] [place] [id number] Jul, Allergic rhinitis J30.9 [facility] [address] [id number] [address] [place] [id number] Jul, Constipation, unspecified K5 9.00 [facility] [address] [id number] [address] [place] [id number] Jul, [facility] [address] [id number] [address] [place] [id number] Jun, [facility] [address] [id number] [address] [place] [id number] Jun, [facility] [address] [id number] [address] [place] [phone] Jun, [facility] [address] [id number] [address] [place] [phone] Jun, [facility] [address] [id number] [address] [place] [phone] Jun, [facility] [address] [facility] [id number] [address] [place] [phone] Jun, [facility] [address] [facility] [id number] [address] [place] [address] [id number] May, [facility] [address] [facility] [id number] [address] [place] [id number] May, [facility] [address] [id number] [place] [address] May, Anxiety F41.9 ; Insomnia G47 .00 ; Hyperlipidemia E78.5 ; Chronic pain G89.29 ; HTN (hypertension) I10 ; Environmental allergies V15.09 and Constipation 564.00 [facility] [address] [facility] [id number] [address] [place] [address] Apr, [facility] [address] [facility] [id number] [address] [place] [id number] Apr, [facility] [address] [id number] [address] [place] [id number] Apr, [facility] [address] [id number] [address] [place] [address] Mar, [facility] [address] [id number] [address] [place] [address] Mar, [facility] [address] [id number] [address] [place] [id number] Mar, [facility] [id number] [place] [address] Feb, [facility] [address] [id number] [address] [place] [phone] Feb, [facility] [address] [id number] [address] [place] [id number] Feb, [facility] [address] [id number] [address] [place] [id number] Jan, HTN (hypertension) I10 ; Con stipation K59.00 ; Chronic pain G89.29 ; Hyperlipidemia E78.5 ; Hypercholesterolemia E78.0 ; Insomnia G47.00 and Anxiety F41.9 [facility] [address] [id number] [address] [place] [id number] Jan, [facility] [address] [facility] [id number] [address] [place] [phone] Dec, [facility] [address] [facility] [id number] [address] [place] [id number] Nov, [facility] [address] [facility] [id number] [address] [place] [phone] Oct, Chronic kidney disease, unsp ecified 585.9 ; Chronic pain syndrome 338.4 ; Hyperlipidemia 272.4 and Essential hypertension 401.9 [facility] [address] [facility] [id number] [address] [place] [id number] Oct, Chronic kidney disease 585.9 [facility] [address] [facility] [id number] [address] [place] [id number] Oct, [facility] [address] [id number] [address] [place] [id number] Oct, Chronic kidney disease, unsp ecified 585.9 ; Hypercalcemia 275.42 ; Hyperlipidemia 272.4 ; Essential hypertension 401.9 ; Chronic pain syndrome 338.4 ; Insomnia 780.52 ; Constipation 564.00 ; Environmental allergies V15.09 and Anxiety 300.00 [facility] [address] [facility] [id number] [address] [place] [id number] Oct, Chronic kidney disease 585.9 [facility] [address] [facility] [id number] [address] [place] [phone] Oct, [facility] [address] [id number] [address] [place] [id number] 14 Oct, 2014 Chronic kidney disease 585.9 and Hyperlipidemia 272.4 [facility] [address] [facility] [id number] [address] [place] [phone] Oct, [facility] [address] [facility] [id number] [address] [place] [phone] Oct, [facility] [address] [id number] [address] [place] [phone] Sep, [facility] [address] [id number] [address] [place] [address], [place] [address] Sep, [facility] [address] [id number] [address] [place] [address], [place] [address] Sep, Chronic kidney disease 585.9 and Hyperlipidemia 272.4 [facility] [address] [id number] [address] [place] [address], [place] [address] Sep, [facility] [address] [id number] [address] [place] [address], [place] [address] August, [facility] [address] [id number] [address] [place] [address], [place] [address] August, [facility] [address] [id number] [address] [place] [address], [place] [address] Jul, [facility] [address] [id number] [address] [place] [address], [place] [address] Jul, [facility] [address] [id number] [address] [place] [address], [place] [address] Jun, [facility] [address] [id number] [address] [place] [address], [place] [address] Jun, [facility] [address] [id number] [address] [place] [address], [place] [address] Jun, [facility] [address] [id number] [address] [place] [phone] Jun, [facility] [address] [id number] [address] [place] [phone] Jun, [facility] [address] [id number] [address] [place] [phone] Jun, [facility] [address] [id number] [address] [place] [address], [place] [address] Jun, [facility] [address] [id number] [address] [place] [address], [place] [address] Jun, [facility] [address] [id number] [address] [place] [address], [place] [address] 16 May, 2014 [facility] [address] [id number] [address] [place] [address], [place] [address] May, [facility] [address] [id number] [address] [place] [address], [place] [address] May, [facility] [address] [id number] [address] [place] [address], [place] [address] May, [facility] [address] [id number] [address] [place] [address], [place] [address] Apr, [facility] [address] [id number] [address] [place] [address], [place] [address] Apr, [facility] [address] [id number] [address] [place] [address], [place] [address] Apr, [facility] [address] [id number] [address] [place] [address], [place] [address] Apr, [facility] [address] [id number] [address] [place] [address], [place] [address] Apr, [facility] [address] [id number] [address] [place] [address], [place] [address] Apr, [facility] [address] [id number] [address] [place] [address], [place] [address] Apr, [facility] [address] [id number] [address] [place] [address], [place] [address] Apr, [facility] [address] [id number] [address] [place] [address], [place] [address] Apr, [facility] [address] [id number] [address] [place] [address], [place] [address] Apr, [facility] [address] [id number] [address] [place] [address], [place] [address] Apr, [facility] [address] [id number] [address] [place] [address], [place] [address] Mar, [facility] [address] [id number] [address] [place] [address], [place] [address] Mar, [facility] [address] [id number] [address] [place] [address], [place] [address] Feb, [facility] [address] [id number] [address] [place] [address], [place] [address] Feb, [facility] [address] [id number] [address] [place] [address], [place] [address] Feb, [facility] [address] [id number] [address] [place] [address], [place] [address] Feb, [facility] [address] [id number] [address] [place] [address], [place] [address] Feb, [facility] [address] [id number] [address] [place] [address], [place] [address] Feb, [facility] [address] [id number] [address] [place] [address], [place] [address] Feb, [facility] [address] [id number] [address] [place] [address], [place] [address] Feb, [facility] [address] [id number] [address] [place] [address], [place] [address] Feb, [facility] [address] [id number] [address] [place] [address], [place] [address] Feb, [facility] [address] [id number] [address] [place] [phone] Jan, [facility] [address] [id number] [address] [place] [address], [place] [address] Jan, [facility] [address] [id number] [address] [place] [address], [place] [address] Jan, [facility] [address] [id number] [address] [place] [address], [place] [address] Jan, [facility] [address] [id number] [address] [place] [address], [place] [address] 24 Jan, 2014 [facility] [address] [id number] [address] [place] [address], [place] [address] 24 Jan, 2014 [facility] [address] [id number] [address] [place] [address], [place] [address] Jan, [facility] [address] [id number] [address] [place] [address], [place] [address] 17 Jan, 2014 [facility] [address] [id number] [address] [place] [address], [place] [address] 16 Jan, 2014 [facility] [address] [id number] [address] [place] [address], [place] [address] Jan, [facility] [address] [id number] [address] [place] [address], [place] [address] Jan, [facility] [address] [id number] [address] [place] [address], [place] [address] 26 Dec, 2013 [facility] [address] [id number] [address] [place] [address], [place] [address] 26 Dec, 2013 [facility] [address] [id number] [address] [place] [address], [place] [address] 19 Dec, 2013 [facility] [address] [id number] [address] [place] [address], [place] [address] 19 Dec, 2013 [facility] [address] [id number] [address] [place] [address], [place] [address] 18 Dec, 2013 [facility] [address] [id number] [address] [place] [address], [place] [address] 18 Dec, 2013 [facility] [address] [id number] [address] [place] [address], [place] [address] 03 Dec, 2013 [facility] [address] [id number] [address] [place] [address], [place] [address] 03 Dec, 2013 [facility] [address] [id number] [address] [place] [address], [place] [address] Nov, [facility] [address] [id number] [address] [place] [address], [place] [address] Nov, [facility] [address] [id number] [address] [place] [address], [place] [address] Nov, [facility] [address] [id number] [address] [place] [address], [place] [address] Nov, [facility] [address] [id number] [address] [place] [address], [place] [address] Nov, [facility] [address] [id number] [address] [place] [address], [place] [address] Nov, [facility] [address] [id number] [address] [place] [address], [place] [address] Nov, [facility] [address] [id number] [address] [place] [address], [place] [address] Nov, [facility] [address] [id number] [address] [place] [address], [place] [address] Oct, [facility] [address] [id number] [address] [place] [address], [place] [address] Oct, [facility] [address] [id number] [address] [place] [address], [place] [address] Oct, [facility] [address] [id number] [address] [place] [address], [place] [address] Oct, [facility] [address] [id number] [address] [place] [address], [place] [address] Sep, [facility] [address] [id number] [address] [place] [address], [place] [address] Sep, [facility] [address] [id number] [address] [place] [address], [place] [address] Sep, [facility] [address] [id number] [address] [place] [address], [place] [address] Sep, [facility] [address] [id number] [address] [place] [address], [place] [address] Sep, [facility] [address] [id number] [address] [place] [address], [place] [address] Sep, [facility] [address] [id number] [address] [place] [address], [place] [address] Sep, [facility] [address] [id number] [address] [place] [address], [place] [address] Sep, [facility] [address] [id number] [address] [place] [address], [place] [address] August, [facility] [address] [id number] [address] [place] [address], [place] [address] August, [facility] [address] [id number] [address] [place] [address], [place] [address] August, [facility] [address] [id number] [address] [place] [address], [place] [address] August, [facility] [address] [id number] [address] [place] [address], [place] [address] August, [facility] [address] [id number] [address] [place] [address], [place] [address] August, [facility] [address] [id number] [address] [place] [address], [place] [address] August, [facility] [address] [id number] [address] [place] [address], [place] [address] August, [facility] [address] [id number] [address] [place] [address], [place] [address] August, [facility] [address] [id number] [address] [place] [address], [place] [address] August, [facility] [address] [id number] [address] [place] [address], [place] [address] Jul, [facility] [address] [id number] [address] [place] [address], [place] [address] Jul, [facility] [address] [id number] [facility] [place] [address] Jul, [facility] [address] [id number] [facility] [place] [address] Jul, [facility] [address] [id number] [facility] [place] [address] Jul, [facility] [address] [id number] [address] [place] [address], [place] [address] Jul, [facility] [address] [id number] [address] [place] [address], [place] [address] Jul, [facility] [address] [id number] [address] [place] [address], [place] [address] Jul, [facility] [address] [id number] [address] [place] [address], [place] [address] Jun, [facility] [address] [id number] [address] [place] [address], [place] [address] Jun, [facility] [address] [id number] [address] [place] [address], [place] [address] Jun, [facility] [address] [id number] [address] [place] [address], [place] [address] Jun, [facility] [address] [id number] [address] [place] [address], [place] [address] Jun, [facility] [address] [id number] [address] [place] [address], [place] [address] Jun, [facility] [address] [id number] [address] [place] [address], [place] [address] May, [facility] [address] [id number] [address] [place] [address], [place] [address] May, [facility] [address] [id number] [address] [place] [address], [place] [address] May, [facility] [address] [id number] [address] [place] [address], [place] [address] May, [facility] [address] [id number] [address] [place] [address], [place] [address] May, [facility] [address] [id number] [address] [place] [address], [place] [address] May, [facility] [address] [id number] [address] [place] [address], [place] [address] May, [facility] [address] [id number] [address] [place] [address], [place] [address] Apr, [facility] [address] [id number] [address] [place] [address], [place] [address] Apr, [facility] [address] [id number] [address] [place] [address], [place] [address] Apr, [facility] [address] [id number] [address] [place] [address], [place] [address] Apr, [facility] [address] [id number] [address] [place] [address], [place] [address] Apr, [facility] [address] [id number] [address] [place] [address], [place] [address] Apr, [facility] [address] [id number] [address] [place] [address], [place] [address] Mar, [facility] [address] [id number] [address] [place] [address], [place] [address] Mar, [facility] [address] [id number] [address] [place] [address], [place] [address] Mar, [facility] [address] [id number] [address] [place] [address], [place] [address] Mar, [facility] [address] [id number] [address] [place] [address], [place] [address] Mar, [facility] [address] [id number] [address] [place] [address], [place] [address] Mar, [facility] [address] [id number] [address] [place] [address], [place] [address] 16 Mar, 2013 [facility] [address] [id number] [address] [place] [address], [place] [address] 16 Mar, 2013 [facility] [address] [id number] [address] [place] [address], [place] [address] Mar, [facility] [address] [id number] [address] [place] [address], [place] [address] Mar, [facility] [address] [id number] [address] [place] [address], [place] [address] Feb, [facility] [address] [id number] [address] [place] [address], [place] [address] Feb, [facility] [address] [id number] [address] [place] [address], [place] [address] Feb, [facility] [address] [id number] [address] [place] [address], [place] [address] Feb, [facility] [address] [id number] [address] [place] [address], [place] [address] Feb, [facility] [address] [id number] [address] [place] [address], [place] [address] Feb, [facility] [address] [id number] [address] [place] [address], [place] [address] Feb, [facility] [address] [id number] [address] [place] [address], [place] [address] Feb, [facility] [address] [id number] [address] [place] [address], [place] [address] Feb, [facility] [address] [id number] [address] [place] [address], [place] [address] Feb, [facility] [address] [id number] [address] [place] [address], [place] [address] Jan, [facility] [address] [id number] [address] [place] [address], [place] [address] Jan, [facility] [address] [id number] [address] [place] [address], [place] [address] Jan, [facility] [address] [id number] [address] [place] [address], [place] [address] Jan, [facility] [address] [id number] [address] [place] [address], [place] [address] Jan, [facility] [address] [id number] [address] [place] [address], [place] [address] Jan, [facility] [address] [id number] [address] [place] [address], [place] [address] Jan, [facility] [address] [id number] [address] [place] [address], [place] [address] Jan, [facility] [address] [id number] [address] [place] [address], [place] [address] Jan, [facility] [address] [id number] [address] [place] [address], [place] [address] Dec, [facility] [address] [id number] [address] [place] [address], [place] [address] Dec, [facility] [address] [id number] [address] [place] [address], [place] [address] Dec, [facility] [address] [id number] [address] [place] [address], [place] [address] Dec, [facility] [address] [id number] [address] [place] [address], [place] [address] Nov, [facility] [address] [id number] [address] [place] [address], [place] [address] Nov, [facility] [address] [id number] [address] [place] [address], [place] [address] Nov, [facility] [address] [id number] [address] [place] [address], [place] [address] Nov, [facility] [address] [id number] [address] [place] [address], [place] [address] Nov, [facility] [address] [id number] [address] [place] [address], [place] [address] Nov, [facility] [address] [id number] [address] [place] [address], [place] [address] Oct, [facility] [address] [id number] [address] [place] [address], [place] [address] Oct, [facility] [address] [id number] [address] [place] [address], [place] [address] Oct, [facility] [address] [id number] [address] [place] [address], [place] [address] Oct, [facility] [address] [id number] [address] [place] [address], [place] [address] Sep, [facility] [address] [id number] [address] [place] [address], [place] [address] Sep, [facility] [address] [id number] [address] [place] [address], [place] [address] Sep, [facility] [address] [id number] [address] [place] [address], [place] [address] Sep, [facility] [address] [id number] [address] [place] [address], [place] [address] Sep, [facility] [address] [id number] [address] [place] [address], [place] [address] August, [facility] [address] [id number] [address] [place] [address], [place] [address] August, [facility] [address] [id number] [address] [place] [address], [place] [address] Jul, [facility] [address] [id number] [address] [place] [address], [place] [address] Jul, [facility] [address] [id number] [address] [place] [address], [place] [address] 15 Jul, 2012 [facility] [address] [id number] [address] [place] [address], [place] [address] Jul, [facility] [address] [id number] [address] [place] [address], [place] [address] Jul, [facility] [address] [id number] [address] [place] [address], [place] [address] 26 Jun, 2012 [facility] [address] [id number] [address] [place] [address], [place] [address] Jun, [facility] [address] [id number] [address] [place] [address], [place] [address] 15 Jun, 2012 [facility] [address] [id number] [address] [place] [address], [place] [address] 06 Jun, 2012 [facility] [address] [id number] [address] [place] [address], [place] [address] Jun, [facility] [address] [id number] [address] [place] [address], [place] [address] 28 May, 2012 [facility] [address] [id number] [address] [place] [address], [place] [address] 27 May, 2012 [facility] [address] [id number] [address] [place] [address], [place] [address] 25 May, 2012 [facility] [address] [id number] [address] [place] [address], [place] [address] May, [facility] [address] [id number] [address] [place] [address], [place] [address] 20 May, 2012 [facility] [address] [id number] [address] [place] [address], [place] [address] 14 May, 2012 [facility] [address] [id number] [address] [place] [address], [place] [address] 13 May, 2012 [facility] [address] [id number] [address] [place] [address], [place] [address] 08 May, 2012 [facility] [address] [id number] [address] [place] [address], [place] [address] 04 May, 2012 [facility] [address] [id number] [address] [place] [address], [place] [address] Apr, [facility] [address] [id number] [address] [place] [address], [place] [address] Apr, [facility] [address] [id number] [address] [place] [address], [place] [address] Apr, [facility] [address] [id number] [address] [place] [address], [place] [address] Apr, [facility] [address] [id number] [address] [place] [address], [place] [address] Apr, [facility] [address] [id number] [address] [place] [address], [place] [address] Mar, [facility] [address] [id number] [address] [place] [address], [place] [address] Mar, [facility] [address] [id number] [address] [place] [address], [place] [address] Mar, [facility] [address] [id number] [address] [place] [address], [place] [address] Mar, [facility] [address] [id number] [address] [place] [address], [place] [address] Mar, [facility] [address] [id number] [address] [place] [address], [place] [address] Mar, [facility] [address] [id number] [address] [place] [address], [place] [address] Mar, [facility] [address] [id number] [address] [place] [address], [place] [address] Mar, [facility] [address] [id number] [address] [place] [address], [place] [address] Mar, [facility] [address] [id number] [address] [place] [address], [place] [address] Mar, [facility] [address] [id number] [address] [place] [address], [place] [address] 30 Feb, 2012 [facility] [address] [id number] [address] [place] [address], [place] [address] Feb, [facility] [address] [id number] [address] [place] [address], [place] [address] Feb, [facility] [address] [id number] [address] [place] [address], [place] [address] Feb, [facility] [address] [id number] [address] [place] [address], [place] [address] Feb, [facility] [address] [id number] [address] [place] [address], [place] [address] Feb, [facility] [address] [id number] [address] [place] [address], [place] [address] Feb, [facility] [address] [id number] [address] [place] [address], [place] [address] Feb, [facility] [address] [id number] [address] [place] [address], [place] [address] Feb, [facility] [address] [id number] [address] [place] [address], [place] [address] 16 Feb, 2012 [facility] [address] [id number] [address] [place] [address], [place] [address] Feb, [facility] [address] [id number] [address] [place] [address], [place] [address] Feb, [facility] [address] [id number] [address] [place] [address], [place] [address] Feb, [facility] [address] [id number] [address] [place] [address], [place] [address] Feb, [facility] [address] [id number] [address] [place] [address], [place] [address] Feb, [facility] [address] [id number] [place] [address] 08 Feb, 2012 [facility] [address] [id number] [address] [place] [address], [place] [address] 07 Feb, 2012 [facility] [address] [id number] [address] [place] [address], [place] [address] Feb, [facility] [address] [id number] [address] [place] [address], [place] [address] Jan, [facility] [address] [id number] [address] [place] [address] Jan, [facility] [address] [id number] [address] [place] [address], [place] [address] Jan, [facility] [address] [id number] [address] [place] [address] Jan, [facility] [address] [id number] [address] [place] [address] Jan, [facility] [address] [id number] [address] [place] [address] Jan, [facility] [address] [id number] [address] [place] [address] Jan, [facility] [address] [id number] [address] [place] [address] Jan, [facility] [address] [id number] [address] [place] [address] 08 Jan, 2012 [facility] [address] [id number] [address] [place] [address] Jan, [facility] [address] [id number] [address] [place] [address], [place] [address] 24 Dec, 2011 [facility] [address] [id number] [address] [place] [address] 18 Dec, 2011 [facility] [address] [id number] [address] [place] [address] 04 Dec, 2011 [facility] [address] [id number] [address] [place] [address], [place] [address] Dec, [facility] [address] [id number] [address] [place] [address], [place] [address] Nov, [facility] [address] [id number] [address] [place] [address], [place] [address] Nov, [facility] [address] [id number] [address] [place] [address], [place] [address] Nov, [facility] [address] [id number] [address] [place] [address], [place] [address] Nov, [facility] [address] [id number] [address] [place] [address], [place] [address] Nov, [facility] [address] [id number] [address] [place] [address], [place] [address] Nov, [facility] [address] [id number] [address] [place] [address], [place] [address] Oct, [facility] [address] [id number] [address] [place] [address], [place] [address] Oct, [facility] [address] [id number] [address] [place] [address], [place] [address] Oct, [facility] [address] [id number] [address] [place] [address], [place] [address] Oct, [facility] [address] [id number] [address] [place] [address], [place] [address] Oct, [facility] [address] [id number] [address] [place] [address], [place] [address] Sep, [facility] [address] [id number] [address] [place] [address], [place] [address] Sep, [facility] [address] [id number] [address] [place] [address], [place] [address] Sep, [facility] [address] [id number] [address] [place] [address], [place] [address] Sep, [facility] [address] [id number] [address] [place] [address], [place] [address] Sep, [facility] [address] [id number] [address] [place] [address], [place] [address] August, [facility] [address] [id number] [address] [place] [address], [place] [address] August, [facility] [address] [id number] [address] [place] [address], [place] [address] August, [facility] [address] [id number] [address] [place] [address], [place] [address] August, [facility] [address] [id number] [address] [place] [address], [place] [address] Jul, [facility] [address] [id number] [address] [place] [address], [place] [address] Jul, [facility] [address] [id number] [address] [place] [address], [place] [address] Jul, [facility] [address] [id number] [address] [place] [address], [place] [address] Jul, [facility] [address] [id number] [address] [place] [address], [place] [address] Jul, [facility] [address] [id number] [address] [place] [address], [place] [address] Jul, [facility] [address] [id number] [address] [place] [address], [place] [address] 11 Jul, 2011 [facility] [address] [id number] [address] [place] [address], [place] [address] 10 Jul, 2011 [facility] [address] [id number] [address] [place] [address], [place] [address] 09 Jul, 2011 [facility] [address] [id number] [address] [place] [address], [place] [address] 07 Jul, 2011 [facility] [address] [id number] [address] [place] [address], [place] [address] 05 Jul, 2011 [facility] [address] [id number] [address] [place] [address], [place] [address] Jul, [facility] [address] [id number] [address] [place] [address], [place] [address] Jul, [facility] [address] [id number] [address] [place] [address], [place] [address] Jul, [facility] [address] [id number] [address] [place] [address], [place] [address] 28 Jun, 2011 [facility] [address] [id number] [address] [place] [address], [place] [address] 27 Jun, 2011 [facility] [address] [id number] [address] [place] [address], [place] [address] 20 Jun, 2011 [facility] [address] [id number] [address] [place] [address], [place] [address] 16 Jun, 2011 [facility] [address] [id number] [address] [place] [address], [place] [address] May, [facility] [address] [id number] [address] [place] [address], [place] [address] 16 May, 2011 [facility] [address] [id number] [address] [place] [address], [place] [address] May, [facility] [address] [id number] [address] [place] [address], [place] [address] Apr, [facility] [address] [id number] [address] [place] [address], [place] [address] 18 Apr, 2011 [facility] [address] [id number] [address] [place] [address], [place] [address] 13 Apr, 2011 [facility] [address] [id number] [address] [place] [address], [place] [address] Apr, [facility] [address] [id number] [address] [place] [address], [place] [address] Apr, [facility] [address] [id number] [address] [place] [address], [place] [address] Mar, [facility] [address] [id number] [address] [place] [address], [place] [address] Mar, [facility] [address] [id number] [address] [place] [address], [place] [address] Mar, [facility] [address] [id number] [address] [place] [address], [place] [address] Mar, [facility] [address] [id number] [address] [place] [address], [place] [address] 16 Mar, 2011 [facility] [address] [id number] [address] [place] [address], [place] [address] Mar, [facility] [address] [id number] [address] [place] [address], [place] [address] Mar, [facility] [address] [id number] [address] [place] [address], [place] [address] Feb, [facility] [address] [id number] [address] [place] [address], [place] [address] Feb, [facility] [address] [id number] [address] [place] [address], [place] [address] Feb, [facility] [address] [id number] [address] [place] [address], [place] [address] Feb, [facility] [address] [id number] [address] [place] [address], [place] [address] 16 Feb, 2011 [facility] [address] [id number] [address] [place] [address], [place] [address] 14 Feb, 2011 [facility] [address] [id number] [address] [place] [address], [place] [address] 10 Feb, 2011 [facility] [address] [id number] [address] [place] [address], [place] [address] 31 Jan, 2011 [facility] [address] [id number] [address] [place] [address], [place] [address] 31 Jan, 2011 [facility] [address] [id number] [address] [place] [address], [place] [address] 31 Jan, 2011 [facility] [address] [id number] [address] [place] [address], [place] [address] 18 Jan, 2011 [facility] [address] [id number] [address] [place] [address], [place] [address] 17 Jan, 2011 [facility] [address] [id number] [address] [place] [address], [place] [address] 17 Jan, 2011 [facility] [address] [id number] [address] [place] [address], [place] [address] 17 Jun, 2010 [facility] [address] [id number] [address] [place] [address], [place] [address] 30 Mar, 2010 [facility] [address] [id number] [address] [place] [address], [place] [address] 20 Mar, 2010 [facility] [address] [id number] [address] [place] [address], [place] [address] 14 Mar, 2010 [facility] [address] [id number] [address] [place] [address], [place] [address] 14 Mar, 2010 [facility] [address] [id number] [address] [place] [address], [place] [address] 13 Mar, 2010 [facility] [address] [id number] [address] [place] [address], [place] [address] 07 Mar, 2010 [facility] [address] [id number] [address] [place] [address], [place] [address] 02 Mar, 2010 [facility] [address] [id number] [address] [place] [address], [place] [address] Mar, [facility] [address] [id number] [address] [place] [address], [place] [address] 30 Feb, 2010 [facility] [address] [id number] [address] [place] [address], [place] [address] Feb, [facility] [address] [id number] [address] [place] [address], [place] [address] 17 Feb, 2010 [facility] [address] [id number] [address] [place] [address], [place] [address] 17 Feb, 2010 [facility] [address] [id number] [address] [place] [address], [place] [address] 16 Feb, 2010 [facility] [address] [id number] [address] [place] [address], [place] [address] 08 Feb, 2010 [facility] [address] [id number] [address] [place] [address], [place] [address] 04 Feb, 2010 [facility] [address] [id number] [address] [place] [address], [place] [address] Feb, [facility] [address] [id number] [address] [place] [address], [place] [address] 28 Jan, 2010 [facility] [address] [id number] [address] [place] [address], [place] [address] Jan, [facility] [address] [id number] [address] [place] [address], [place] [address] 25 Jan, 2010 [facility] [address] [id number] [address] [place] [address], [place] [address] 18 Jan, 2010 [facility] [address] [id number] [address] [place] [address], [place] [address] 29 Mar, 2009 [facility] [address] [id number] [address] [place] [address], [place] [phone] 22 Mar, 2009 [facility] [address] [id number] [address] [place] [address], [place] [phone] 19 Mar, 2009 [facility] [address] [id number] [address] [place] [address], [place] [phone] 19 Mar, 2009 [facility] [address] [id number] [address] [place] [address], [place] [phone] 14 Mar, 2009 [facility] [address] [id number] [address] [place] [address], [place] [phone] Mar, [facility] [address] [facility] [id number] [address] [place] [phone] Feb, [facility] [address] [facility] [id number] [address] [place] [id number] Feb, [facility] [address] [facility] [id number] [address] [place] [phone] Jan, [facility] [address] [facility] [id number] [address] [place] [phone] Sep, [facility] [address] [facility] [id number] [address] [place] [phone] May, IMMUNIZATIONS No Known Immunizations SOCIAL HISTORY [...] History Left ear surgery Hospitalization History [facility] in [place]- Spontane ous Pneumothorax Hospitalization History [facility]- Colon resection Hospitalization History [facility] - diarrhea/ couldnt urin ate nov 2017 Hospitalization History pain /hip to foot right side 10/16/19 19
--- OUTSIDE RECORDS SUMMARY | 2019-08-28 09:08 | XMS REPORT ---
Author Author Dixon Lundberg Doctor Organization [facility] Address Unknown Phone Unavailable Care Team Providers Care Risk Control Representative Name Role Phone Migration, Doctor Unavailable Unavailable PROBLEMS ALLERGIES No Information ENCOUNTERS IMMUNIZATIONS No Known Immunizations SOCIAL HISTORY No smoking Hx information available REASON FOR VISIT PLAN OF CARE VITAL SIGNS MEDICATIONS Unknown Medications RESULTS No Results PROCEDURES No Known procedures INSTRUCTIONS MEDICATIONS ADMINISTERED No Known Medications MEDICAL (GENERAL) HISTORY
--- OUTSIDE RECORDS SUMMARY | 2019-08-28 09:08 | XMS REPORT ---
Author Author Dixon Lundberg Doctor Organization [facility] Address Unknown Phone Unavailable Care Team Providers Care Metallographer Name Role Phone Migration, Doctor Unavailable Unavailable PROBLEMS Type Condition ICD9-CM Code CLP94-XP Code Onset Dates Condition S tatus SNOMED Code Problem Insomnia G47.00 Active 494992375 Problem Anxiety F41.9 Active 31472582 Problem HTN (hypertension) I10 Active 3 3933964 Problem Hyperlipidemia E78.5 Active 79238 004 Problem Thoracic back pain, unspecif ied back pain laterality, unspecified chronicity M54.6 Active 648843780 Problem Vitamin D deficiency E55.9 Active 66457123 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 97702736 Problem Chronic pain G89.29 Active 5403959 1 Problem Schizophrenia, unspecified type F20.9 Active 23984276 Problem Constipation K59.00 Active 6507227 8 Problem Environmental allergies Z91.09 Active 713770833 Problem Primary insomnia F51.01 Active 397 2004 Problem Chronic kidney disease, stage III (moderate) N18.3 Active 523834081 Problem Vision loss H54.7 Active 88190097 1 ALLERGIES No Information ENCOUNTERS Encounter Location Date Diagnosis [place] [address] [facility] [id number] [address] [place] [phone] Nov, Thoracic back pain, unspecif ied back pain laterality, unspecified chronicity M54.6 [facility] [address] [facility] [id number] [address] [place] [id number] Nov, Anxiety F41.9 and Thoracic b ack pain, unspecified back pain laterality, unspecified chronicity M54.6 [facility] [address] [facility] [id number] [address] [place] [id number] Nov, [facility] [address] [facility] [id number] [address] [place] [id number] Nov, [facility] [address] [id number] [address] [place] [id number] Nov, [facility] [address] [id number] [address] [place] [id number] Oct, Thoracic back pain, unspecif ied back pain laterality, unspecified chronicity M54.6 [facility] [address] [id number] [address] [place] [id number] Oct, Anxiety F41.9 and Thoracic b ack pain, unspecified back pain laterality, unspecified chronicity M54.6 [facility] [address] [id number] [address] [place] [address] Oct, Schizophrenia, unspecified t ype F20.9 and Acute kidney injury N17.9 [facility] [address] [id number] [address] [place] [address] Oct, [facility] [address] [id number] [address] [place] [id number] Oct, [facility] [address] [id number] [address] [place] [id number] Oct, Thoracic back pain, unspecif ied back pain laterality, unspecified chronicity M54.6 [facility] [address] [id number] [address] [place] [id number] Oct, [facility] [address] [id number] [address] [place] [id number] Oct, [facility] [address] [id number] [address] [place] [id number] Sep, Anxiety F41.9 [facility] [address] [id number] [address] [place] [id number] Sep, [facility] [address] [id number] [address] [place] [id number] Sep, Thoracic back pain, unspecif ied back pain laterality, unspecified chronicity M54.6 [facility] [address] [id number] [address] [place] [id number] Sep, [facility] [address] [facility] [id number] [address] [place] [phone] Sep, [facility] [address] [facility] [id number] [address] [place] [phone] Sep, [facility] [address] [facility] [id number] [address] [place] [phone] Sep, [facility] [address] [id number] [address] [place] [id number] Sep, [facility] [address] [facility] [id number] [address] [place] [id number] Sep, [facility] [address] [facility] [id number] [address] [place] [address] Sep, Chronic pain G89.29 ; Chroni c kidney disease, stage III (moderate) N18.3 ; Hyperlipidemia E78.5 and Insomnia G47.00 [facility] [address] [facility] [id number] [address] [place] [id number] Sep, Thoracic back pain, unspecif ied back pain laterality, unspecified chronicity M54.6 [facility] [address] [facility] [id number] [address] [place] [address] August, Anxiety F41.9 [facility] [address] [facility] [id number] [address] [place] [id number] August, Thoracic back pain, unspecif ied back pain laterality, unspecified chronicity M54.6 and Anxiety F41.9 [facility] [address] [facility] [id number] [address] [place] [address] August, 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 [facility] [address] [facility] [id number] [address] [place] [address] August, 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 [facility] [address] [facility] [id number] [address] [place] [address] August, [facility] [address] [facility] [id number] [address] [place] [id number] August, [facility] [address] [id number] [address] [place] [address] August, Thoracic back pain, unspecif ied back pain laterality, unspecified chronicity M54.6 [facility] [address] [id number] [address] [place] [id number] August, [facility] [address] [id number] [address] [place] [id number] August, Anxiety F41.9 and Thoracic b ack pain, unspecified back pain laterality, unspecified chronicity M54.6 [facility] [address] [id number] [address] [place] [id number] Jul, [facility] [address] [id number] [address] [place] [id number] Jul, Thoracic back pain, unspecif ied back pain laterality, unspecified chronicity M54.6 [facility] [address] [id number] [address] [place] [id number] Jun, Anxiety F41.9 and Thoracic b ack pain, unspecified back pain laterality, unspecified chronicity M54.6 [facility] [address] [id number] [address] [place] [address] Jun, Anxiety F41.9 and Thoracic b ack pain, unspecified back pain laterality, unspecified chronicity M54.6 [facility] [address] [id number] [address] [place] [id number] Jun, Thoracic back pain, unspecif ied back pain laterality, unspecified chronicity M54.6 [facility] [address] [id number] [address] [place] [address] Jun, Anxiety F41.9 and Thoracic b ack pain, unspecified back pain laterality, unspecified chronicity M54.6 [facility] [address] [id number] [address] [place] [address] May, [facility] [address] [id number] [address] [place] [address] May, [facility] [address] [id number] [address] [place] [address] 08 May, 2018 [facility] [address] [id number] [address] [place] [address] May, Anxiety F41.9 and Encounter for medication monitoring Z51.81 [facility] [address] [id number] [address] [place] [id number] 05 May, 2018 Anxiety F41.9 and Thoracic b ack pain, unspecified back pain laterality, unspecified chronicity M54.6 [place] [address] [id number] [address] [place] [address] Apr, Hyperlipidemia 272.4 [place] [address] [id number] [address] [place] [address] Apr, Chronic pain G89.29 ; Anxiet y F41.9 ; Cervical radiculopathy M54.12 and Vision loss H54.7 [facility] [address] [id number] [address] [place] [address] Apr, [facility] [address] [id number] [address] [place] [id number] Apr, Anxiety F41.9 and Thoracic b ack pain, unspecified back pain laterality, unspecified chronicity M54.6 [facility] [address] [id number] [address] [place] [id number] 17 Mar, 2018 [facility] [address] [id number] [address] [place] [id number] Mar, Anxiety F41.9 and Thoracic b ack pain, unspecified back pain laterality, unspecified chronicity M54.6 [facility] [address] [id number] [address] [place] [address] Feb, Anxiety F41.9 and Thoracic b ack pain, unspecified back pain laterality, unspecified chronicity M54.6 [facility] [address] [id number] [address] [place] [id number] 07 Feb, 2018 Thoracic back pain, unspecif ied back pain laterality, unspecified chronicity M54.6 [facility] [address] [id number] [address] [place] [id number] 29 Jan, 2018 [facility] [address] [id number] [address] [place] [address] Jan, Anxiety F41.9 and Thoracic b ack pain, unspecified back pain laterality, unspecified chronicity M54.6 [facility] [address] [id number] [address] [place] [address] 19 Dec, 2017 Diarrhea of presumed infecti ous origin R19.7 [facility] [address] [id number] [address] [place] [id number] 19 Dec, 2017 Diarrhea of presumed infecti ous origin R19.7 [facility] [address] [id number] [address] [place] [id number] 18 Dec, 2017 Thoracic back pain, unspecif ied back pain laterality, unspecified chronicity M54.6 [facility] [address] [id number] [address] [place] [id number] 17 Dec, 2017 [facility] [address] [id number] [address] [place] [id number] 17 Dec, 2017 Anxiety F41.9 and Thoracic b ack pain, unspecified back pain laterality, unspecified chronicity M54.6 [facility] [address] [id number] [address] [place] [id number] 13 Dec, 2017 Diarrhea of presumed infecti ous origin R19.7 [facility] [address] [id number] [address] [place] [id number] 13 Dec, 2017 [facility] [address] [id number] [address] [place] [id number] 12 Dec, 2017 Anxiety F41.9 and Thoracic b ack pain, unspecified back pain laterality, unspecified chronicity M54.6 [place] [address] [address] Dec, Anxiety F41.9 and Thoracic b ack pain, unspecified back pain laterality, unspecified chronicity M54.6 [facility] [employer] [facility] [address] [place] [id number] Dec, Diarrhea of presumed infectious origin R 19.7 ; Anxiety F41.9 ; Thoracic back pain, unspecified back pain laterality, unspecified chronicity M54.6 and HTN (hypertension) I10 [place] [address] [address] Dec, Anxiety F41.9 [facility] [employer] [address] [place] [id number] Dec, Anxiety F41.9 ; Diarrhea of presumed inf ectious origin R19.7 ; Generalized abdominal pain R10.84 and Localized edema R60.0 [place] [address] [place] [id number] [address] [place] [address] Nov, [facility] [employer] [address] [place] [id number] Nov, Anxiety F41.9 ; Urinary retention R33.9 ; Diarrhea of presumed infectious origin R19.7 ; Weakness R53.1 ; Acute kidney failure, unspecified N17.9 ; Chronic kidney disease, stage III (moderate) N18.3 and Thoracic back pain, unspecified back pain laterality, unspecified chronicity M54.6 [place] [address] [place] [id number] [address] [place] [id number] Oct, Thoracic back pain, unspecif ied back pain laterality, unspecified chronicity M54.6 and Anxiety F41.9 [place] [address] [place] [id number] [address] [place] [id number] Sep, Thoracic back pain, unspecif ied back pain laterality, unspecified chronicity M54.6 and Anxiety F41.9 [place] [address] [id number] [address] [place] [address] Sep, Thoracic back pain, unspecif ied back pain laterality, unspecified chronicity M54.6 ; Anxiety F41.9 and Encounter for medication monitoring Z51.81 [facility] [address] [id number] [address] [place] [address] August, [facility] [address] [facility] [id number] [address] [place] [id number] August, Thoracic back pain, unspecif ied back pain laterality, unspecified chronicity M54.6 and Anxiety F41.9 [place] [address] [facility] [id number] [address] [place] [address] August, Hyperlipidemia E78.5 and HTN (hypertension) I10 [place] [address] [facility] [id number] [address] [place] [address] August, [place] [address] [facility] [id number] [address] [place] [address] August, Medicare welcome exam Z00.00 ; Chronic kidney failure N18.9 ; Anxiety F41.9 ; Chronic pain G89.29 ; Insomnia G47.00 ; Hyperlipidemia E78.5 ; HTN (hypertension) I10 and Thoracic back pain, unspecified back pain laterality, unspecified chronicity M54.6 [place] [address] [id number] [address] [place] [address] Jul, [place] [address] [facility] [id number] [address] [place] [address] Jul, [facility] [address] [id number] [address] [place] [address] Jul, [place] [address] [facility] [id number] [address] [place] [address] Jul, Anxiety F41.9 [facility] [address] [facility] [id number] [address] [place] [id number] Jul, Thoracic back pain, unspecif ied back pain laterality, unspecified chronicity M54.6 and Anxiety F41.9 [facility] [address] [id number] [address] [place] [address] Jun, Thoracic back pain, unspecif ied back pain laterality, unspecified chronicity M54.6 and Anxiety F41.9 [facility] [address] [id number] [address] [place] [address] May, Thoracic back pain, unspecif ied back pain laterality, unspecified chronicity M54.6 and Anxiety F41.9 [facility] [address] [id number] [address] [place] [address] Apr, Thoracic back pain, unspecif ied back pain laterality, unspecified chronicity M54.6 and Anxiety F41.9 [place] [address] [id number] [address] [place] [address] Mar, [place] [address] [id number] [address] [place] [address] Mar, Thoracic back pain, unspecif ied back pain laterality, unspecified chronicity M54.6 and Anxiety F41.9 [place] [address] [id number] [address] [place] [address] Mar, Thoracic back pain, unspecif ied back pain laterality, unspecified chronicity M54.6 ; HTN (hypertension) I10 ; Hyperlipidemia E78.5 and Anxiety F41.9 [place] [address] [id number] [address] [place] [address] Feb, Thoracic back pain, unspecif ied back pain laterality, unspecified chronicity M54.6 and Anxiety F41.9 [facility] [address] [id number] [address] [place] [id number] Nov, [facility] [address] [id number] [address] [place] [phone] Oct, [facility] [address] [facility] [id number] [address] [place] [id number] Oct, Thoracic back pain, unspecif ied back pain laterality, unspecified chronicity M54.6 [facility] [address] [place] [id number] [address] [place] [address] Oct, HTN (hypertension) I10 ; Con stipation K59.00 ; Hyperlipidemia E78.5 ; Thoracic back pain, unspecified back pain laterality, unspecified chronicity M54.6 ; Chronic pain G89.29 ; Anxiety F41.9 ; Chronic kidney failure N18.9 ; Environmental allergies Z91.09 ; Vitamin D deficiency E55.9 and Primary insomnia F51.01 [facility] [address] [facility] [id number] [address] [place] [address] Sep, Anxiety F41.9 [facility] [address] [facility] [id number] [address] [place] [address] Sep, [facility] [address] [place] [id number] [address] [place] [address] August, Anxiety F41.9 [facility] [address] [facility] [id number] [address] [place] [address] August, [facility] [address] [place] [id number] [address] [place] [id number] Jul, Anxiety F41.9 [facility] [address] [facility] [id number] [address] [place] [id number] Jul, [facility] [address] [facility] [id number] [address] [place] [id number] Jun, Anxiety F41.9 [facility] [address] [facility] [id number] [address] [place] [address] Jun, [facility] [address] [facility] [id number] [address] [place] [address] May, [facility] [address] [facility] [id number] [address] [place] [address] May, [facility] [address] [place] [id number] [address] [place] [id number] May, [facility] [address] [facility] [id number] [address] [place] [id number] Apr, [facility] [address] [facility] [id number] [address] [place] [address] Apr, [facility] [address] [facility] [id number] [address] [place] [address] Apr, Anxiety F41.9 [facility] [address] [facility] [id number] [address] [place] [address] Apr, Anxiety F41.9 [facility] [address] [facility] [id number] [address] [place] [address] Apr, [facility] [address] [facility] [id number] [address] [place] [address] Mar, HTN (hypertension) I10 ; Phillip mor R25.1 ; Hypercholesterolemia E78.0 ; Constipation K59.00 ; Chronic pain G89.29 ; Hyperlipidemia E78.5 ; Insomnia G47.00 ; Anxiety F41.9 and Thoracic back pain, unspecified back pain laterality, unspecified chronicity M54.6 [facility] [address] [facility] [id number] [address] [place] [address] Mar, Tremor R25.1 ; HTN (hyperten stas) I10 ; Hypercholesterolemia E78.0 ; Constipation K59.00 ; Chronic pain G89.29 ; Hyperlipidemia E78.5 ; Insomnia G47.00 ; Anxiety F41.9 and Thoracic back pain, unspecified back pain laterality, unspecified chronicity M54.6 [facility] [address] [facility] [id number] [address] [place] [address] Mar, [facility] [address] [place] [id number] [address] [place] [address] Mar, [facility] [address] [facility] [id number] [address] [place] [id number] Feb, [facility] [address] [place] [id number] [address] [place] [id number] 13 Jan, 2016 [facility] [address] [id number] [address] [place] [id number] 10 Jan, 2016 [facility] [address] [id number] [address] [place] [id number] 15 Dec, 2015 [facility] [address] [id number] [address] [place] [address] Nov, [facility] [address] [id number] [address] [place] [id number] Nov, [facility] [address] [id number] [address] [place] [id number] Oct, Anxiety F41.9 [facility] [address] [facility] [id number] [address] [place] [address] Oct, Chronic pain G89.29 [facility] [address] [id number] [address] [place] [id number] Sep, [facility] [address] [id number] [address] [place] [id number] Sep, [facility] [address] [id number] [address] [place] [id number] Sep, [facility] [address] [id number] [address] [place] [id number] Sep, [facility] [address] [id number] [address] [place] [address] Sep, Chronic pain syndrome G89.4 [facility] [address] [id number] [address] [place] [id number] 15 Sep, 2015 HTN (hypertension) I10 ; Chr onic pain G89.29 ; Hypercholesterolemia E78.0 ; Chronic kidney failure N18.9 ; Constipation, unspecified constipation type K59.00 ; Anxiety F41.9 and Thoracic back pain, unspecified back pain laterality, unspecified chronicity M54.6 [facility] [address] [id number] [address] [place] [id number] August, Chronic pain syndrome G89.4 [facility] [address] [id number] [address] [place] [id number] August, Chronic pain syndrome G89.4 [facility] [address] [id number] [address] [place] [id number] Jul, Anxiety disorder, unspecifie d F41.9 and Chronic pain syndrome G89.4 [facility] [address] [id number] [address] [place] [id number] Jul, Insomnia, unspecified G47.00 and Chronic pain syndrome G89.4 [facility] [address] [id number] [address] [place] [id number] Jul, Allergic rhinitis J30.9 [facility] [address] [id number] [address] [place] [id number] Jul, Constipation, unspecified K5 9.00 [facility] [address] [id number] [address] [place] [id number] Jul, [facility] [address] [id number] [address] [place] [id number] Jun, [facility] [address] [id number] [address] [place] [id number] Jun, [facility] [address] [id number] [address] [place] [id number] Jun, [facility] [address] [id number] [address] [place] [id number] Jun, [facility] [facility] [address] [id number] [address] [place] [address] Jun, [facility] [address] [facility] [id number] [address] [place] [address] Jun, [facility] [address] [facility] [id number] [address] [place] [address] May, [facility] [address] [facility] [id number] [address] [place] [address] May, [facility] [address] [place] [id number] [place] [address] May, Anxiety F41.9 ; Insomnia G47 .00 ; Hyperlipidemia E78.5 ; Chronic pain G89.29 ; HTN (hypertension) I10 ; Environmental allergies V15.09 and Constipation 564.00 [facility] [address] [facility] [id number] [address] [place] [address] Apr, [facility] [address] [facility] [id number] [address] [place] [address] Apr, [facility] [address] [place] [place] [id number] [address] [place] [address] Apr, [facility] [address] [place] [id number] [address] [place] [address] Mar, [facility] [address] [place] [id number] [address] [place] [address] Mar, [facility] [address] [place] [id number] [address] [place] [address] Mar, [facility] [address] [id number] [place] [address] Feb, [facility] [address] [place] [id number] [address] [place] [address] Feb, [facility] [address] [place] [place] [id number] [address] [place] [address] Feb, [facility] [address] [place] [place] [id number] [address] [place] [address] Jan, HTN (hypertension) I10 ; Con stipation K59.00 ; Chronic pain G89.29 ; Hyperlipidemia E78.5 ; Hypercholesterolemia E78.0 ; Insomnia G47.00 and Anxiety F41.9 [facility] [address] [place] [id number] [address] [place] [address] Jan, [facility] [address] [facility] [id number] [address] [place] [address] Dec, [facility] [address] [facility] [id number] [address] [place] [address] Nov, [facility] [address] [facility] [id number] [address] [place] [address] Oct, Chronic kidney disease, unsp ecified 585.9 ; Chronic pain syndrome 338.4 ; Hyperlipidemia 272.4 and Essential hypertension 401.9 [facility] [address] [facility] [id number] [address] [place] [address] Oct, Chronic kidney disease 585.9 [facility] [address] [facility] [id number] [address] [place] [address] Oct, [facility] [address] [place] [id number] [address] [place] [address] Oct, Chronic kidney disease, unsp ecified 585.9 ; Hypercalcemia 275.42 ; Hyperlipidemia 272.4 ; Essential hypertension 401.9 ; Chronic pain syndrome 338.4 ; Insomnia 780.52 ; Constipation 564.00 ; Environmental allergies V15.09 and Anxiety 300.00 [facility] [address] [facility] [id number] [address] [place] [address] Oct, Chronic kidney disease 585.9 [facility] [address] [facility] [id number] [address] [place] [address] Oct, [facility] [address] [place] [id number] [address] [place] [address] 14 Oct, 2014 Chronic kidney disease 585.9 and Hyperlipidemia 272.4 [facility] [address] [facility] [id number] [address] [place] [address] Oct, [facility] [address] [facility] [id number] [address] [place] [address] Oct, [facility] [address] [place] [id number] [address] [place] [address] Sep, [facility] [address] [id number] [address] [place] [address], [place] [address] Sep, [facility] [address] [id number] [address] [place] [address], [place] [address] Sep, Chronic kidney disease 585.9 and Hyperlipidemia 272.4 [facility] [address] [id number] [address] [place] [address], [place] [address] Sep, [facility] [address] [id number] [address] [place] [address], [place] [address] August, [facility] [address] [id number] [address] [place] [address], [place] [address] August, [facility] [address] [id number] [address] [place] [address], [place] [address] Jul, [facility] [address] [id number] [address] [place] [address], [place] [address] Jul, [facility] [address] [id number] [address] [place] [address], [place] [address] Jun, [facility] [address] [id number] [address] [place] [address], [place] [address] Jun, [facility] [address] [id number] [address] [place] [address], [place] [address] Jun, [facility] [address] [id number] [address] [place] [address] Jun, [facility] [address] [id number] [address] [place] [address] Jun, [facility] [address] [id number] [address] [place] [address] Jun, [facility] [address] [id number] [address] [place] [address], [place] [address] Jun, [facility] [address] [id number] [address] [place] [address], [place] [address] Jun, [facility] [address] [id number] [address] [place] [address], [place] [address] 16 May, 2014 [facility] [address] [id number] [address] [place] [address], [place] [address] May, [facility] [address] [id number] [address] [place] [address], [place] [address] May, [facility] [address] [id number] [address] [place] [address], [place] [address] May, [facility] [address] [id number] [address] [place] [address], [place] [address] Apr, [facility] [address] [id number] [address] [place] [address], [place] [address] Apr, [facility] [address] [id number] [address] [place] [address], [place] [address] Apr, [facility] [address] [id number] [address] [place] [address], [place] [address] Apr, [facility] [address] [id number] [address] [place] [address], [place] [address] Apr, [facility] [address] [id number] [address] [place] [address], [place] [address] Apr, [facility] [address] [id number] [address] [place] [address], [place] [address] Apr, [facility] [address] [id number] [address] [place] [address], [place] [address] Apr, [facility] [address] [id number] [address] [place] [address], [place] [address] Apr, [facility] [address] [id number] [address] [place] [address], [place] [address] Apr, [facility] [address] [id number] [address] [place] [address], [place] [address] Apr, [facility] [address] [id number] [address] [place] [address], [place] [address] Mar, [facility] [address] [id number] [address] [place] [address], [place] [address] Mar, [facility] [address] [id number] [address] [place] [address], [place] [address] Feb, [facility] [address] [id number] [address] [place] [address], [place] [address] Feb, [facility] [address] [id number] [address] [place] [address], [place] [address] Feb, [facility] [address] [id number] [address] [place] [address], [place] [address] Feb, [facility] [address] [id number] [address] [place] [address], [place] [address] Feb, [facility] [address] [id number] [address] [place] [address], [place] [address] Feb, [facility] [address] [id number] [address] [place] [address], [place] [address] Feb, [facility] [address] [id number] [address] [place] [address], [place] [address] Feb, [facility] [address] [id number] [address] [place] [address], [place] [address] Feb, [facility] [address] [id number] [address] [place] [address], [place] [address] Feb, [facility] [address] [id number] [address] [place] [address] Jan, [facility] [address] [id number] [address] [place] [address], [place] [address] Jan, [facility] [address] [id number] [address] [place] [address], [place] [address] Jan, [facility] [address] [id number] [address] [place] [address], [place] [address] Jan, [facility] [address] [id number] [address] [place] [address], [place] [address] 24 Jan, 2014 [facility] [address] [id number] [address] [place] [address], [place] [address] 24 Jan, 2014 [facility] [address] [id number] [address] [place] [address], [place] [address] Jan, [facility] [address] [id number] [address] [place] [address], [place] [address] 17 Jan, 2014 [facility] [address] [id number] [address] [place] [address], [place] [address] 16 Jan, 2014 [facility] [address] [id number] [address] [place] [address], [place] [address] Jan, [facility] [address] [id number] [address] [place] [address], [place] [address] Jan, [facility] [address] [id number] [address] [place] [address], [place] [address] 26 Dec, 2013 [facility] [address] [id number] [address] [place] [address], [place] [address] 26 Dec, 2013 [facility] [address] [id number] [address] [place] [address], [place] [address] 19 Dec, 2013 [facility] [address] [id number] [address] [place] [address], [place] [address] 19 Dec, 2013 [facility] [address] [id number] [address] [place] [address], [place] [address] 18 Dec, 2013 [facility] [address] [id number] [address] [place] [address], [place] [address] 18 Dec, 2013 [facility] [address] [id number] [address] [place] [address], [place] [address] 03 Dec, 2013 [facility] [address] [id number] [address] [place] [address], [place] [address] 03 Dec, 2013 [facility] [address] [id number] [address] [place] [address], [place] [address] Nov, [facility] [address] [id number] [address] [place] [address], [place] [address] Nov, [facility] [address] [id number] [address] [place] [address], [place] [address] Nov, [facility] [address] [id number] [address] [place] [address], [place] [address] Nov, [facility] [address] [id number] [address] [place] [address], [place] [address] Nov, [facility] [address] [id number] [address] [place] [address], [place] [address] Nov, [facility] [address] [id number] [address] [place] [address], [place] [address] Nov, [facility] [address] [id number] [address] [place] [address], [place] [address] Nov, [facility] [address] [id number] [address] [place] [address], [place] [address] Oct, [facility] [address] [id number] [address] [place] [address], [place] [address] Oct, [facility] [address] [id number] [address] [place] [address], [place] [address] Oct, [facility] [address] [id number] [address] [place] [address], [place] [address] Oct, [facility] [address] [id number] [address] [place] [address], [place] [address] Sep, [facility] [address] [id number] [address] [place] [address], [place] [address] Sep, [facility] [address] [id number] [address] [place] [address], [place] [address] Sep, [facility] [address] [id number] [address] [place] [address], [place] [address] Sep, [facility] [address] [id number] [address] [place] [address], [place] [address] Sep, [facility] [address] [id number] [address] [place] [address], [place] [address] Sep, [facility] [address] [id number] [address] [place] [address], [place] [address] Sep, [facility] [address] [id number] [address] [place] [address], [place] [address] Sep, [facility] [address] [id number] [address] [place] [address], [place] [address] August, [facility] [address] [id number] [address] [place] [address], [place] [address] August, [facility] [address] [id number] [address] [place] [address], [place] [address] August, [facility] [address] [id number] [address] [place] [address], [place] [address] August, [facility] [address] [id number] [address] [place] [address], [place] [address] August, [facility] [address] [id number] [address] [place] [address], [place] [address] August, [facility] [address] [id number] [address] [place] [address], [place] [address] August, [facility] [address] [id number] [address] [place] [address], [place] [address] August, [facility] [address] [id number] [address] [place] [address], [place] [address] August, [facility] [address] [id number] [address] [place] [address], [place] [address] August, [facility] [address] [id number] [address] [place] [address], [place] [address] Jul, [facility] [address] [id number] [address] [place] [address], [place] [address] Jul, [facility] [address] [id number] [facility] [place] [address] Jul, [facility] [address] [id number] [facility] [place] [address] Jul, [facility] [address] [id number] [facility] [place] [address] Jul, [facility] [address] [id number] [address] [place] [address], [place] [address] Jul, [facility] [address] [id number] [address] [place] [address], [place] [address] Jul, [facility] [address] [id number] [address] [place] [address], [place] [address] Jul, [facility] [address] [id number] [address] [place] [address], [place] [address] Jun, [facility] [address] [id number] [address] [place] [address], [place] [address] Jun, [facility] [address] [id number] [address] [place] [address], [place] [address] Jun, [facility] [address] [id number] [address] [place] [address], [place] [address] Jun, [facility] [address] [id number] [address] [place] [address], [place] [address] Jun, [facility] [address] [id number] [address] [place] [address], [place] [address] Jun, [facility] [address] [id number] [address] [place] [address], [place] [address] May, [facility] [address] [id number] [address] [place] [address], [place] [address] May, [facility] [address] [id number] [address] [place] [address], [place] [address] May, [facility] [address] [id number] [address] [place] [address], [place] [address] May, [facility] [address] [id number] [address] [place] [address], [place] [address] May, [facility] [address] [id number] [address] [place] [address], [place] [address] May, [facility] [address] [id number] [address] [place] [address], [place] [address] May, [facility] [address] [id number] [address] [place] [address], [place] [address] Apr, [facility] [address] [id number] [address] [place] [address], [place] [address] Apr, [facility] [address] [id number] [address] [place] [address], [place] [address] Apr, [facility] [address] [id number] [address] [place] [address], [place] [address] Apr, [facility] [address] [id number] [address] [place] [address], [place] [address] Apr, [facility] [address] [id number] [address] [place] [address], [place] [address] Apr, [facility] [address] [id number] [address] [place] [address], [place] [address] Mar, [facility] [address] [id number] [address] [place] [address], [place] [address] Mar, [facility] [address] [id number] [address] [place] [address], [place] [address] Mar, [facility] [address] [id number] [address] [place] [address], [place] [address] Mar, [facility] [address] [id number] [address] [place] [address], [place] [address] Mar, [facility] [address] [id number] [address] [place] [address], [place] [address] Mar, [facility] [address] [id number] [address] [place] [address], [place] [address] 16 Mar, 2013 [facility] [address] [id number] [address] [place] [address], [place] [address] 16 Mar, 2013 [facility] [address] [id number] [address] [place] [address], [place] [address] Mar, [facility] [address] [id number] [address] [place] [address], [place] [address] Mar, [facility] [address] [id number] [address] [place] [address], [place] [address] Feb, [facility] [address] [id number] [address] [place] [address], [place] [address] Feb, [facility] [address] [id number] [address] [place] [address], [place] [address] Feb, [facility] [address] [id number] [address] [place] [address], [place] [address] Feb, [facility] [address] [id number] [address] [place] [address], [place] [address] Feb, [facility] [address] [id number] [address] [place] [address], [place] [address] Feb, [facility] [address] [id number] [address] [place] [address], [place] [address] Feb, [facility] [address] [id number] [address] [place] [address], [place] [address] Feb, [facility] [address] [id number] [address] [place] [address], [place] [address] Feb, [facility] [address] [id number] [address] [place] [address], [place] [address] Feb, [facility] [address] [id number] [address] [place] [address], [place] [address] Jan, [facility] [address] [id number] [address] [place] [address], [place] [address] Jan, [facility] [address] [id number] [address] [place] [address], [place] [address] Jan, [facility] [address] [id number] [address] [place] [address], [place] [address] Jan, [facility] [address] [id number] [address] [place] [address], [place] [address] Jan, [facility] [address] [id number] [address] [place] [address], [place] [address] Jan, [facility] [address] [id number] [address] [place] [address], [place] [address] Jan, [facility] [address] [id number] [address] [place] [address], [place] [address] Jan, [facility] [address] [id number] [address] [place] [address], [place] [address] Jan, [facility] [address] [id number] [address] [place] [address], [place] [address] Dec, [facility] [address] [id number] [address] [place] [address], [place] [address] Dec, [facility] [address] [id number] [address] [place] [address], [place] [address] Dec, [facility] [address] [id number] [address] [place] [address], [place] [address] Dec, [facility] [address] [id number] [address] [place] [address], [place] [address] Nov, [facility] [address] [id number] [address] [place] [address], [place] [address] Nov, [facility] [address] [id number] [address] [place] [address], [place] [address] Nov, [facility] [address] [id number] [address] [place] [address], [place] [address] Nov, [facility] [address] [id number] [address] [place] [address], [place] [address] Nov, [facility] [address] [id number] [address] [place] [address], [place] [address] Nov, [facility] [address] [id number] [address] [place] [address], [place] [address] Oct, [facility] [address] [id number] [address] [place] [address], [place] [address] Oct, [facility] [address] [id number] [address] [place] [address], [place] [address] Oct, [facility] [address] [id number] [address] [place] [address], [place] [address] Oct, [facility] [address] [id number] [address] [place] [address], [place] [address] Sep, [facility] [address] [id number] [address] [place] [address], [place] [address] Sep, [facility] [address] [id number] [address] [place] [address], [place] [address] Sep, [facility] [address] [id number] [address] [place] [address], [place] [address] Sep, [facility] [address] [id number] [address] [place] [address], [place] [address] Sep, [facility] [address] [id number] [address] [place] [address], [place] [address] August, [facility] [address] [id number] [address] [place] [address], [place] [address] August, [facility] [address] [id number] [address] [place] [address], [place] [address] Jul, [facility] [address] [id number] [address] [place] [address], [place] [address] Jul, [facility] [address] [id number] [address] [place] [address], [place] [address] 15 Jul, 2012 [facility] [address] [id number] [address] [place] [address], [place] [address] Jul, [facility] [address] [id number] [address] [place] [address], [place] [address] Jul, [facility] [address] [id number] [address] [place] [address], [place] [address] 26 Jun, 2012 [facility] [address] [id number] [address] [place] [address], [place] [address] Jun, [facility] [address] [id number] [address] [place] [address], [place] [address] 15 Jun, 2012 [facility] [address] [id number] [address] [place] [address], [place] [address] 06 Jun, 2012 [facility] [address] [id number] [address] [place] [address], [place] [address] Jun, [facility] [address] [id number] [address] [place] [address], [place] [address] 28 May, 2012 [facility] [address] [id number] [address] [place] [address], [place] [address] 27 May, 2012 [facility] [address] [id number] [address] [place] [address], [place] [address] 25 May, 2012 [facility] [address] [id number] [address] [place] [address], [place] [address] May, [facility] [address] [id number] [address] [place] [address], [place] [address] 20 May, 2012 [facility] [address] [id number] [address] [place] [address], [place] [address] 14 May, 2012 [facility] [address] [id number] [address] [place] [address], [place] [address] 13 May, 2012 [facility] [address] [id number] [address] [place] [address], [place] [address] 08 May, 2012 [facility] [address] [id number] [address] [place] [address], [place] [address] 04 May, 2012 [facility] [address] [id number] [address] [place] [address], [place] [address] Apr, [facility] [address] [id number] [address] [place] [address], [place] [address] Apr, [facility] [address] [id number] [address] [place] [address], [place] [address] Apr, [facility] [address] [id number] [address] [place] [address], [place] [address] Apr, [facility] [address] [id number] [address] [place] [address], [place] [address] Apr, [facility] [address] [id number] [address] [place] [address], [place] [address] Mar, [facility] [address] [id number] [address] [place] [address], [place] [address] Mar, [facility] [address] [id number] [address] [place] [address], [place] [address] Mar, [facility] [address] [id number] [address] [place] [address], [place] [address] Mar, [facility] [address] [id number] [address] [place] [address], [place] [address] Mar, [facility] [address] [id number] [address] [place] [address], [place] [address] Mar, [facility] [address] [id number] [address] [place] [address], [place] [address] Mar, [facility] [address] [id number] [address] [place] [address], [place] [address] Mar, [facility] [address] [id number] [address] [place] [address], [place] [address] Mar, [facility] [address] [id number] [address] [place] [address], [place] [address] Mar, [facility] [address] [id number] [address] [place] [address], [place] [address] 30 Feb, 2012 [facility] [address] [id number] [address] [place] [address], [place] [address] Feb, [facility] [address] [id number] [address] [place] [address], [place] [address] Feb, [facility] [address] [id number] [address] [place] [address], [place] [address] Feb, [facility] [address] [id number] [address] [place] [address], [place] [address] Feb, [facility] [address] [id number] [address] [place] [address], [place] [address] Feb, [facility] [address] [id number] [address] [place] [address], [place] [address] Feb, [facility] [address] [id number] [address] [place] [address], [place] [address] Feb, [facility] [address] [id number] [address] [place] [address], [place] [address] Feb, [facility] [address] [id number] [address] [place] [address], [place] [address] 16 Feb, 2012 [facility] [address] [id number] [address] [place] [address], [place] [address] Feb, [facility] [address] [id number] [address] [place] [address], [place] [address] Feb, [facility] [address] [id number] [address] [place] [address], [place] [address] Feb, [facility] [address] [id number] [address] [place] [address], [place] [address] Feb, [facility] [address] [id number] [address] [place] [address], [place] [address] Feb, [facility] [address] [id number] [place] [address] 08 Feb, 2012 [facility] [address] [id number] [address] [place] [address], [place] [address] 07 Feb, 2012 [facility] [address] [id number] [address] [place] [address], [place] [address] Feb, [facility] [address] [id number] [address] [place] [address], [place] [address] Jan, [facility] [address] [id number] [address] [place] [address] Jan, [facility] [address] [id number] [address] [place] [address], [place] [address] Jan, [facility] [address] [id number] [address] [place] [address] Jan, [facility] [address] [id number] [address] [place] [address] Jan, [facility] [address] [id number] [address] [place] [address] Jan, [facility] [address] [id number] [address] [place] [address] Jan, [facility] [address] [id number] [address] [place] [address] Jan, [facility] [address] [id number] [address] [place] [address] 08 Jan, 2012 [facility] [address] [id number] [address] [place] [address] Jan, [facility] [address] [id number] [address] [place] [address], [place] [address] 24 Dec, 2011 [facility] [address] [id number] [address] [place] [address] 18 Dec, 2011 [facility] [address] [id number] [address] [place] [address] 04 Dec, 2011 [facility] [address] [id number] [address] [place] [address], [place] [address] Dec, [facility] [address] [id number] [address] [place] [address], [place] [address] Nov, [facility] [address] [id number] [address] [place] [address], [place] [address] Nov, [facility] [address] [id number] [address] [place] [address], [place] [address] Nov, [facility] [address] [id number] [address] [place] [address], [place] [address] Nov, [facility] [address] [id number] [address] [place] [address], [place] [address] Nov, [facility] [address] [id number] [address] [place] [address], [place] [address] Nov, [facility] [address] [id number] [address] [place] [address], [place] [address] Oct, [facility] [address] [id number] [address] [place] [address], [place] [address] Oct, [facility] [address] [id number] [address] [place] [address], [place] [address] Oct, [facility] [address] [id number] [address] [place] [address], [place] [address] Oct, [facility] [address] [id number] [address] [place] [address], [place] [address] Oct, [facility] [address] [id number] [address] [place] [address], [place] [address] Sep, [facility] [address] [id number] [address] [place] [address], [place] [address] Sep, [facility] [address] [id number] [address] [place] [address], [place] [address] Sep, [facility] [address] [id number] [address] [place] [address], [place] [address] Sep, [facility] [address] [id number] [address] [place] [address], [place] [address] Sep, [facility] [address] [id number] [address] [place] [address], [place] [address] August, [facility] [address] [id number] [address] [place] [address], [place] [address] August, [facility] [address] [id number] [address] [place] [address], [place] [address] August, [facility] [address] [id number] [address] [place] [address], [place] [address] August, [facility] [address] [id number] [address] [place] [address], [place] [address] Jul, [facility] [address] [id number] [address] [place] [address], [place] [address] Jul, [facility] [address] [id number] [address] [place] [address], [place] [address] Jul, [facility] [address] [id number] [address] [place] [address], [place] [address] Jul, [facility] [address] [id number] [address] [place] [address], [place] [address] Jul, [facility] [address] [id number] [address] [place] [address], [place] [address] Jul, [facility] [address] [id number] [address] [place] [address], [place] [address] 11 Jul, 2011 [facility] [address] [id number] [address] [place] [address], [place] [address] 10 Jul, 2011 [facility] [address] [id number] [address] [place] [address], [place] [address] 09 Jul, 2011 [facility] [address] [id number] [address] [place] [address], [place] [address] 07 Jul, 2011 [facility] [address] [id number] [address] [place] [address], [place] [address] 05 Jul, 2011 [facility] [address] [id number] [address] [place] [address], [place] [address] Jul, [facility] [address] [id number] [address] [place] [address], [place] [address] Jul, [facility] [address] [id number] [address] [place] [address], [place] [address] Jul, [facility] [address] [id number] [address] [place] [address], [place] [address] 28 Jun, 2011 [facility] [address] [id number] [address] [place] [address], [place] [address] 27 Jun, 2011 [facility] [address] [id number] [address] [place] [address], [place] [address] 20 Jun, 2011 [facility] [address] [id number] [address] [place] [address], [place] [address] 16 Jun, 2011 [facility] [address] [id number] [address] [place] [address], [place] [address] May, [facility] [address] [id number] [address] [place] [address], [place] [address] 16 May, 2011 [facility] [address] [id number] [address] [place] [address], [place] [address] May, [facility] [address] [id number] [address] [place] [address], [place] [address] Apr, [facility] [address] [id number] [address] [place] [address], [place] [address] 18 Apr, 2011 [facility] [address] [id number] [address] [place] [address], [place] [address] 13 Apr, 2011 [facility] [address] [id number] [address] [place] [address], [place] [address] Apr, [facility] [address] [id number] [address] [place] [address], [place] [address] Apr, [facility] [address] [id number] [address] [place] [address], [place] [address] Mar, [facility] [address] [id number] [address] [place] [address], [place] [address] Mar, [facility] [address] [id number] [address] [place] [address], [place] [address] Mar, [facility] [address] [id number] [address] [place] [address], [place] [address] Mar, [facility] [address] [id number] [address] [place] [address], [place] [address] 16 Mar, 2011 [facility] [address] [id number] [address] [place] [address], [place] [address] Mar, [facility] [address] [id number] [address] [place] [address], [place] [address] Mar, [facility] [address] [id number] [address] [place] [address], [place] [address] Feb, [facility] [address] [id number] [address] [place] [address], [place] [address] Feb, [facility] [address] [id number] [address] [place] [address], [place] [address] Feb, [facility] [address] [id number] [address] [place] [address], [place] [address] Feb, [facility] [address] [id number] [address] [place] [address], [place] [address] 16 Feb, 2011 [facility] [address] [id number] [address] [place] [address], [place] [address] 14 Feb, 2011 [facility] [address] [id number] [address] [place] [address], [place] [address] 10 Feb, 2011 [facility] [address] [id number] [address] [place] [address], [place] [address] 31 Jan, 2011 [facility] [address] [id number] [address] [place] [address], [place] [address] 31 Jan, 2011 [facility] [address] [id number] [address] [place] [address], [place] [address] 31 Jan, 2011 [facility] [address] [id number] [address] [place] [address], [place] [address] 18 Jan, 2011 [facility] [address] [id number] [address] [place] [address], [place] [address] 17 Jan, 2011 [facility] [address] [id number] [address] [place] [address], [place] [address] 17 Jan, 2011 [facility] [address] [id number] [address] [place] [address], [place] [address] 17 Jun, 2010 [facility] [address] [id number] [address] [place] [address], [place] [address] 30 Mar, 2010 [facility] [address] [id number] [address] [place] [address], [place] [address] 20 Mar, 2010 [facility] [address] [id number] [address] [place] [address], [place] [address] 14 Mar, 2010 [facility] [address] [id number] [address] [place] [address], [place] [address] 14 Mar, 2010 [facility] [address] [id number] [address] [place] [address], [place] [address] 13 Mar, 2010 [facility] [address] [id number] [address] [place] [address], [place] [address] 07 Mar, 2010 [facility] [address] [id number] [address] [place] [address], [place] [address] 02 Mar, 2010 [facility] [address] [id number] [address] [place] [address], [place] [address] Mar, [facility] [address] [id number] [address] [place] [address], [place] [address] 30 Feb, 2010 [facility] [address] [id number] [address] [place] [address], [place] [address] Feb, [facility] [address] [id number] [address] [place] [address], [place] [address] 17 Feb, 2010 [facility] [address] [id number] [address] [place] [address], [place] [address] 17 Feb, 2010 [facility] [address] [id number] [address] [place] [address], [place] [address] 16 Feb, 2010 [facility] [address] [id number] [address] [place] [address], [place] [address] 08 Feb, 2010 [facility] [address] [id number] [address] [place] [address], [place] [address] 04 Feb, 2010 [facility] [address] [id number] [address] [place] [address], [place] [address] Feb, [facility] [address] [id number] [address] [place] [address], [place] [address] 28 Jan, 2010 [facility] [address] [id number] [address] [place] [address], [place] [address] Jan, [facility] [address] [id number] [address] [place] [address], [place] [address] 25 Jan, 2010 [facility] [address] [id number] [address] [place] [address], [place] [address] 18 Jan, 2010 [facility] [address] [id number] [address] [place] [address], [place] [address] 29 Mar, 2009 [facility] [address] [id number] [address] [place] [address], [place] [address] 22 Mar, 2009 [facility] [place] [facility] [address] [id number] [address] [place] [address], [place] [phone] 19 Mar, 2009 [facility] [address] [id number] [address] [place] [address], [place] [phone] 19 Mar, 2009 [facility] [address] [id number] [address] [place] [address], [place] [phone] 14 Mar, 2009 [facility] [place] [facility] [address] [id number] [address] [place] [address], [place] [phone] Mar, [facility] [address] [facility] [id number] [address] [place] [phone] Feb, [facility] [address] [facility] [id number] [address] [place] [phone] Feb, [facility] [address] [facility] [id number] [address] [place] [phone] Jan, [facility] [address] [facility] [id number] [address] [place] [phone] Sep, [facility] [address] [facility] [id number] [address] [place] [phone] May, IMMUNIZATIONS No Known Immunizations SOCIAL HISTORY [...] surgery Hospitalization History [facility] in [place]- Spontane ous Pneumothorax Hospitalization History [facility]- Colon resection Hospitalization History [facility] - diarrhea/ couldnt urin ate nov 2017 Hospitalization History pain /hip to foot right side 10/16/19 19
--- OUTSIDE RECORDS SUMMARY | 2019-08-28 09:09 | XMS REPORT ---
Author Author Dixon Lundberg Doctor Organization [facility] Address Unknown Phone Unavailable Care Team Providers Care Dialysis Technician Name Role Phone Migration, Doctor Unavailable Unavailable PROBLEMS Type Condition ICD9-CM Code ZQZ48-WG Code Onset Dates Condition S tatus SNOMED Code Problem Insomnia G47.00 Active 280361422 Problem Anxiety F41.9 Active 80257683 Problem HTN (hypertension) I10 Active 3 0605107 Problem Hyperlipidemia E78.5 Active 36139 004 Problem Thoracic back pain, unspecif ied back pain laterality, unspecified chronicity M54.6 Active 869948736 Problem Vitamin D deficiency E55.9 Active 32610729 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 10556182 Problem Chronic pain G89.29 Active 3872806 1 Problem Schizophrenia, unspecified type F20.9 Active 17038651 Problem Constipation K59.00 Active 1861319 8 Problem Environmental allergies Z91.09 Active 092397934 Problem Primary insomnia F51.01 Active 397 2004 Problem Chronic kidney disease, stage III (moderate) N18.3 Active 602263611 Problem Vision loss H54.7 Active 33948335 1 ALLERGIES No Information ENCOUNTERS Encounter Location Date Diagnosis [facility] [address] [facility] [id number] [address] [place] [phone] Nov, [facility] [address] [facility] [id number] [address] [place] [address] Nov, [facility] [address] [facility] [id number] [address] [place] [phone] Nov, [facility] [address] [facility] [id number] [address] [place] [address] Oct, Thoracic back pain, unspecif ied back pain laterality, unspecified chronicity M54.6 [facility] [address] [facility] [id number] [address] [place] [phone] Oct, Anxiety F41.9 and Thoracic b ack pain, unspecified back pain laterality, unspecified chronicity M54.6 [facility] [address] [id number] [address] [place] [phone] Oct, Schizophrenia, unspecified t ype F20.9 and Acute kidney injury N17.9 [facility] [address] [id number] [address] [place] [phone] Oct, [facility] [address] [id number] [address] [place] [phone] Oct, [facility] [address] [id number] [address] [place] [phone] Oct, Thoracic back pain, unspecif ied back pain laterality, unspecified chronicity M54.6 [facility] [address] [id number] [address] [place] [phone] Oct, [facility] [address] [id number] [address] [place] [address] Oct, [facility] [address] [id number] [address] [place] [phone] Sep, Anxiety F41.9 [facility] [address] [id number] [address] [place] [address] Sep, [facility] [address] [id number] [address] [place] [phone] Sep, Thoracic back pain, unspecif ied back pain laterality, unspecified chronicity M54.6 [facility] [address] [id number] [address] [place] [address] Sep, [facility] [address] [id number] [address] [place] [address] Sep, [facility] [address] [id number] [address] [place] [phone] Sep, [facility] [address] [id number] [address] [place] [phone] Sep, [facility] [address] [id number] [address] [place] [phone] Sep, [facility] [address] [facility] [id number] [address] [place] [address] Sep, [facility] [address] [facility] [id number] [address] [place] [address] Sep, Chronic pain G89.29 ; Chroni c kidney disease, stage III (moderate) N18.3 ; Hyperlipidemia E78.5 and Insomnia G47.00 [facility] [address] [id number] [address] [place] [id number] Sep, Thoracic back pain, unspecif ied back pain laterality, unspecified chronicity M54.6 [facility] [address] [facility] [id number] [address] [place] [phone] August, Anxiety F41.9 [facility] [address] [facility] [id number] [address] [place] [phone] August, Thoracic back pain, unspecif ied back pain laterality, unspecified chronicity M54.6 and Anxiety F41.9 [facility] [address] [facility] [id number] [address] [place] [address] August, 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6 [facility] [address] [facility] [id number] [address] [place] [address] August, [place] [address] [id number] [address] [place] [address] August, Anxiety F41.9 and Thoracic b ack pain, unspecified back pain laterality, unspecified chronicity M54.6 [facility] [address] [id number] [address] [place] [address] Jul, [facility] [address] [id number] [address] [place] [phone] Jul, Thoracic back pain, unspecif ied back pain laterality, unspecified chronicity M54.6 [facility] [address] [id number] [address] [place] [address] Jun, Anxiety F41.9 and Thoracic b ack pain, unspecified back pain laterality, unspecified chronicity M54.6 [facility] [address] [id number] [address] [place] [address] Jun, Anxiety F41.9 and Thoracic b ack pain, unspecified back pain laterality, unspecified chronicity M54.6 [facility] [address] [id number] [address] [place] [address] Jun, Thoracic back pain, unspecif ied back pain laterality, unspecified chronicity M54.6 [facility] [address] [id number] [address] [place] [address] Jun, Anxiety F41.9 and Thoracic b ack pain, unspecified back pain laterality, unspecified chronicity M54.6 [facility] [address] [id number] [address] [place] [phone] May, [facility] [address] [id number] [address] [place] [phone] May, [facility] [address] [id number] [address] [place] [address] May, [facility] [address] [id number] [address] [place] [phone] May, Anxiety F41.9 and Encounter for medication monitoring Z51.81 [facility] [address] [id number] [address] [place] [address] May, Anxiety F41.9 and Thoracic b ack pain, unspecified back pain laterality, unspecified chronicity M54.6 [place] [address] [id number] [address] [place] [address] Apr, Hyperlipidemia 272.4 [place] [address] [id number] [address] [place] [address] Apr, Chronic pain G89.29 ; Anxiet y F41.9 ; Cervical radiculopathy M54.12 and Vision loss H54.7 [facility] [facility] [address] [id number] [address] [place] [address] Apr, [place] [address] [id number] [address] [place] [address] Apr, Anxiety F41.9 and Thoracic b ack pain, unspecified back pain laterality, unspecified chronicity M54.6 [place] [address] [id number] [address] [place] [address] 17 Mar, 2018 [place] [address] [id number] [address] [place] [address] 10 Mar, 2018 Anxiety F41.9 and Thoracic b ack pain, unspecified back pain laterality, unspecified chronicity M54.6 [place] [address] [id number] [address] [place] [address] 14 Feb, 2018 Anxiety F41.9 and Thoracic b ack pain, unspecified back pain laterality, unspecified chronicity M54.6 [place] [address] [id number] [address] [place] [address] 07 Feb, 2018 Thoracic back pain, unspecif ied back pain laterality, unspecified chronicity M54.6 [place] [address] [facility] [id number] [address] [place] [address] Jan, [place] [address] [place] [id number] [address] [place] [phone] 16 Jan, 2018 Anxiety F41.9 and Thoracic b ack pain, unspecified back pain laterality, unspecified chronicity M54.6 [facility] [address] [id number] [address] [place] [address] 19 Dec, 2017 Diarrhea of presumed infecti ous origin R19.7 [facility] [address] [id number] [address] [place] [address] 19 Dec, 2017 Diarrhea of presumed infecti ous origin R19.7 [facility] [address] [id number] [address] [place] [phone] 18 Dec, 2017 Thoracic back pain, unspecif ied back pain laterality, unspecified chronicity M54.6 [facility] [address] [id number] [address] [place] [address] 17 Dec, 2017 [facility] [address] [id number] [address] [place] [address] 17 Dec, 2017 Anxiety F41.9 and Thoracic b ack pain, unspecified back pain laterality, unspecified chronicity M54.6 [facility] [address] [id number] [address] [place] [id number] 13 Dec, 2017 Diarrhea of presumed infecti ous origin R19.7 [facility] [address] [id number] [address] [place] [address] Dec, [facility] [address] [id number] [address] [place] [address] Dec, Anxiety F41.9 and Thoracic b ack pain, unspecified back pain laterality, unspecified chronicity M54.6 [facility] [address] [id number] [address] [place] [phone] Dec, Anxiety F41.9 and Thoracic b ack pain, unspecified back pain laterality, unspecified chronicity M54.6 [facility] [address] [place] [id number] Dec, Diarrhea of presumed infectious origin R 19.7 ; Anxiety F41.9 ; Thoracic back pain, unspecified back pain laterality, unspecified chronicity M54.6 and HTN (hypertension) I10 [facility] [address] [facility] [id number] [address] [place] [id number] Dec, Anxiety F41.9 [facility] [employer] [address] [place] [id number] Dec, Anxiety F41.9 ; Diarrhea of presumed inf ectious origin R19.7 ; Generalized abdominal pain R10.84 and Localized edema R60.0 [place] [address] [facility] [id number] [address] [place] [address] Nov, [facility] [employer] [address] [place] [id number] Nov, Anxiety F41.9 ; Urinary retention R33.9 ; Diarrhea of presumed infectious origin R19.7 ; Weakness R53.1 ; Acute kidney failure, unspecified N17.9 ; Chronic kidney disease, stage III (moderate) N18.3 and Thoracic back pain, unspecified back pain laterality, unspecified chronicity M54.6 [place] [address] [facility] [id number] [address] [place] [address] Oct, Thoracic back pain, unspecif ied back pain laterality, unspecified chronicity M54.6 and Anxiety F41.9 [place] [address] [facility] [id number] [address] [place] [address] Sep, Thoracic back pain, unspecif ied back pain laterality, unspecified chronicity M54.6 and Anxiety F41.9 [place] [address] [id number] [address] [place] [address] Sep, Thoracic back pain, unspecif ied back pain laterality, unspecified chronicity M54.6 ; Anxiety F41.9 and Encounter for medication monitoring Z51.81 [place] [address] [facility] [id number] [address] [place] [address] August, [place] [address] [facility] [id number] [address] [place] [address] August, Thoracic back pain, unspecif ied back pain laterality, unspecified chronicity M54.6 and Anxiety F41.9 [place] [address] [place] [id number] [address] [place] [address] August, Hyperlipidemia E78.5 and HTN (hypertension) I10 [place] [address] [place] [id number] [address] [place] [address] August, [place] [address] [place] [id number] [address] [place] [address] August, Medicare welcome exam Z00.00 ; Chronic kidney failure N18.9 ; Anxiety F41.9 ; Chronic pain G89.29 ; Insomnia G47.00 ; Hyperlipidemia E78.5 ; HTN (hypertension) I10 and Thoracic back pain, unspecified back pain laterality, unspecified chronicity M54.6 [place] [address] [place] [id number] [address] [place] [phone] Jul, [place] [address] [place] [id number] [address] [place] [phone] Jul, [place] [address] [place] [id number] [place] [address] Jul, [place] [address] [place] [id number] [address] [place] [address] Jul, Anxiety F41.9 [place] [address] [place] [id number] [address] [place] [address] Jul, Thoracic back pain, unspecif ied back pain laterality, unspecified chronicity M54.6 and Anxiety F41.9 [place] [address] [place] [id number] [address] [place] [address] Jun, Thoracic back pain, unspecif ied back pain laterality, unspecified chronicity M54.6 and Anxiety F41.9 [place] [address] [place] [id number] [address] [place] [address] May, Thoracic back pain, unspecif ied back pain laterality, unspecified chronicity M54.6 and Anxiety F41.9 [place] [address] [facility] [id number] [address] [place] [address] Apr, Thoracic back pain, unspecif ied back pain laterality, unspecified chronicity M54.6 and Anxiety F41.9 [place] [address] [place] [id number] [address] [place] [address] Mar, [place] [address] [place] [id number] [address] [place] [address] Mar, Thoracic back pain, unspecif ied back pain laterality, unspecified chronicity M54.6 and Anxiety F41.9 [place] [address] [place] [id number] [address] [place] [address] Mar, Thoracic back pain, unspecif ied back pain laterality, unspecified chronicity M54.6 ; HTN (hypertension) I10 ; Hyperlipidemia E78.5 and Anxiety F41.9 [place] [address] [facility] [id number] [address] [place] [address] Feb, Thoracic back pain, unspecif ied back pain laterality, unspecified chronicity M54.6 and Anxiety F41.9 [place] [address] [place] [id number] [address] [place] [address] Nov, [place] [address] [place] [id number] [address] [place] [address] Oct, [place] [address] [place] [id number] [address] [place] [address] Oct, Thoracic back pain, unspecif ied back pain laterality, unspecified chronicity M54.6 [place] [address] [facility] [id number] [address] [place] [address] Oct, HTN (hypertension) I10 ; Con stipation K59.00 ; Hyperlipidemia E78.5 ; Thoracic back pain, unspecified back pain laterality, unspecified chronicity M54.6 ; Chronic pain G89.29 ; Anxiety F41.9 ; Chronic kidney failure N18.9 ; Environmental allergies Z91.09 ; Vitamin D deficiency E55.9 and Primary insomnia F51.01 [facility] [address] [facility] [id number] [address] [place] [address] Sep, Anxiety F41.9 [facility] [address] [facility] [id number] [address] [place] [address] Sep, [facility] [address] [facility] [id number] [address] [place] [address] August, Anxiety F41.9 [facility] [address] [facility] [id number] [address] [place] [address] August, [facility] [address] [facility] [id number] [address] [place] [address] Jul, Anxiety F41.9 [facility] [address] [facility] [id number] [address] [place] [address] Jul, [facility] [address] [facility] [id number] [address] [place] [address] Jun, Anxiety F41.9 [facility] [address] [facility] [id number] [address] [place] [address] Jun, [facility] [address] [facility] [id number] [address] [place] [address] May, [facility] [address] [facility] [id number] [address] [place] [address] May, [facility] [address] [facility] [id number] [address] [place] [address] May, [facility] [address] [facility] [id number] [address] [place] [address] Apr, [facility] [address] [facility] [id number] [address] [place] [address] Apr, [facility] [address] [facility] [id number] [address] [place] [id number] Apr, Anxiety F41.9 [facility] [address] [facility] [id number] [address] [place] [phone] Apr, Anxiety F41.9 [facility] [address] [facility] [id number] [address] [place] [address] Apr, [facility] [address] [place] [id number] [address] [place] [address] Mar, HTN (hypertension) I10 ; Phillip mor R25.1 ; Hypercholesterolemia E78.0 ; Constipation K59.00 ; Chronic pain G89.29 ; Hyperlipidemia E78.5 ; Insomnia G47.00 ; Anxiety F41.9 and Thoracic back pain, unspecified back pain laterality, unspecified chronicity M54.6 [facility] [address] [place] [id number] [address] [place] [address] Mar, Tremor R25.1 ; HTN (hyperten stas) I10 ; Hypercholesterolemia E78.0 ; Constipation K59.00 ; Chronic pain G89.29 ; Hyperlipidemia E78.5 ; Insomnia G47.00 ; Anxiety F41.9 and Thoracic back pain, unspecified back pain laterality, unspecified chronicity M54.6 [facility] [address] [place] [id number] [place] [address] Mar, [facility] [address] [place] [id number] [address] [place] [address] Mar, [facility] [address] [place] [id number] [address] [place] [address] Feb, [facility] [address] [place] [id number] [address] [place] [address] Jan, [facility] [address] [place] [id number] [address] [place] [address] Jan, [facility] [address] [facility] [id number] [address] [place] [address] Dec, [facility] [address] [place] [id number] [address] [place] [address] Nov, [facility] [address] [facility] [id number] [address] [place] [address] Nov, [facility] [address] [facility] [id number] [address] [place] [address] Oct, Anxiety F41.9 [facility] [address] [facility] [id number] [address] [place] [address] Oct, Chronic pain G89.29 [facility] [address] [facility] [id number] [address] [place] [address] Sep, [facility] [address] [id number] [address] [place] [address] Sep, [facility] [address] [facility] [id number] [address] [place] [address] Sep, [facility] [address] [facility] [id number] [address] [place] [phone] Sep, [facility] [address] [facility] [id number] [address] [place] [address] Sep, Chronic pain syndrome G89.4 [facility] [address] [facility] [id number] [address] [place] [address] Sep, HTN (hypertension) I10 ; Chr onic pain G89.29 ; Hypercholesterolemia E78.0 ; Chronic kidney failure N18.9 ; Constipation, unspecified constipation type K59.00 ; Anxiety F41.9 and Thoracic back pain, unspecified back pain laterality, unspecified chronicity M54.6 [facility] [address] [facility] [id number] [address] [place] [address] August, Chronic pain syndrome G89.4 [facility] [address] [facility] [id number] [address] [place] [address] August, Chronic pain syndrome G89.4 [facility] [address] [facility] [id number] [address] [place] [address] Jul, Anxiety disorder, unspecifie d F41.9 and Chronic pain syndrome G89.4 [facility] [address] [id number] [address] [place] [address] Jul, Insomnia, unspecified G47.00 and Chronic pain syndrome G89.4 [facility] [address] [facility] [id number] [address] [place] [address] Jul, Allergic rhinitis J30.9 [facility] [address] [facility] [id number] [address] [place] [phone] Jul, Constipation, unspecified K5 9.00 [facility] [address] [id number] [address] [place] [phone] Jul, [facility] [address] [facility] [id number] [address] [place] [phone] Jun, [facility] [address] [facility] [id number] [address] [place] [phone] Jun, [facility] [address] [facility] [id number] [address] [place] [phone] Jun, [facility] [address] [facility] [id number] [address] [place] [phone] Jun, [facility] [address] [facility] [id number] [address] [place] [phone] Jun, [facility] [address] [facility] [id number] [address] [place] [phone] Jun, [facility] [address] [facility] [id number] [address] [place] [phone] May, [facility] [address] [facility] [id number] [address] [place] [phone] May, [facility] [address] [facility] [id number] [address] [place] [phone] May, Anxiety F41.9 ; Insomnia G47 .00 ; Hyperlipidemia E78.5 ; Chronic pain G89.29 ; HTN (hypertension) I10 ; Environmental allergies V15.09 and Constipation 564.00 [facility] [address] [id number] [address] [place] [phone] Apr, [facility] [address] [id number] [address] [place] [phone] Apr, [facility] [address] [id number] [address] [place] [phone] Apr, [facility] [address] [facility] [id number] [address] [place] [phone] Mar, [facility] [address] [id number] [address] [place] [id number] Mar, [facility] [address] [facility] [id number] [address] [place] [id number] Mar, [facility] [address] [facility] [id number] [address] [place] [phone] Feb, [facility] [address] [facility] [id number] [address] [place] [id number] Feb, [facility] [address] [facility] [id number] [address] [place] [phone] Feb, [facility] [address] [facility] [id number] [address] [place] [address] Jan, HTN (hypertension) I10 ; Con stipation K59.00 ; Chronic pain G89.29 ; Hyperlipidemia E78.5 ; Hypercholesterolemia E78.0 ; Insomnia G47.00 and Anxiety F41.9 [facility] [address] [facility] [id number] [address] [place] [phone] Jan, [facility] [address] [facility] [id number] [address] [place] [id number] Dec, [facility] [address] [facility] [id number] [address] [place] [phone] Nov, [facility] [address] [facility] [id number] [address] [place] [id number] Oct, Chronic kidney disease, unsp ecified 585.9 ; Chronic pain syndrome 338.4 ; Hyperlipidemia 272.4 and Essential hypertension 401.9 [facility] [address] [facility] [id number] [address] [place] [id number] Oct, Chronic kidney disease 585.9 [facility] [address] [facility] [id number] [address] [place] [id number] Oct, [facility] [id number] [place] [phone] Oct, Chronic kidney disease, unsp ecified 585.9 ; Hypercalcemia 275.42 ; Hyperlipidemia 272.4 ; Essential hypertension 401.9 ; Chronic pain syndrome 338.4 ; Insomnia 780.52 ; Constipation 564.00 ; Environmental allergies V15.09 and Anxiety 300.00 [facility] [address] [id number] [address] [place] [id number] Oct, Chronic kidney disease 585.9 [facility] [address] [id number] [address] [place] [phone] Oct, [facility] [address] [id number] [address] [place] [id number] Oct, Chronic kidney disease 585.9 and Hyperlipidemia 272.4 [facility] [address] [id number] [address] [place] [phone] Oct, [facility] [address] [id number] [address] [place] [id number] Oct, [facility] [address] [id number] [address] [place] [phone] 18 Sep, 2014 [facility] [address] [facility] [id number] [address] [place] [phone] Sep, [facility] [address] [id number] [address] [place] [phone] Sep, Chronic kidney disease 585.9 and Hyperlipidemia 272.4 [facility] [address] [id number] [address] [place] [phone] Sep, [facility] [address] [id number] [address] [place] [address], [place] [address] August, [facility] [address] [id number] [address] [place] [address], [place] [address] August, [facility] [address] [id number] [address] [place] [address], [place] [address] Jul, [facility] [address] [id number] [address] [place] [address], [place] [address] Jul, [facility] [address] [id number] [address] [place] [address], [place] [address] Jun, [facility] [address] [id number] [address] [place] [address], [place] [address] Jun, [facility] [address] [id number] [address] [place] [address], [place] [address] Jun, [facility] [address] [id number] [address] [place] [address], [place] [address] Jun, [facility] [address] [id number] [address] [place] [address], [place] [address] Jun, [facility] [address] [id number] [address] [place] [address], [place] [address] Jun, [facility] [address] [id number] [address] [place] [address], [place] [address] Jun, [facility] [address] [id number] [address] [place] [phone] Jun, [facility] [address] [id number] [address] [place] [address], [place] [address] May, [facility] [address] [id number] [address] [place] [address], [place] [address] May, [facility] [address] [id number] [address] [place] [phone] May, [facility] [address] [id number] [address] [place] [phone] May, [facility] [address] [id number] [address] [place] [address], [place] [address] Apr, [facility] [address] [id number] [address] [place] [address], [place] [address] Apr, [facility] [address] [id number] [address] [place] [address], [place] [address] Apr, [facility] [address] [id number] [address] [place] [address], [place] [address] Apr, [facility] [address] [id number] [address] [place] [address], [place] [address] Apr, [facility] [address] [id number] [address] [place] [address], [place] [address] Apr, [facility] [address] [id number] [address] [place] [address], [place] [address] Apr, [facility] [address] [id number] [address] [place] [address], [place] [address] Apr, [facility] [address] [id number] [address] [place] [address], [place] [address] Apr, [facility] [address] [id number] [address] [place] [address], [place] [address] Apr, [facility] [address] [id number] [address] [place] [address], [place] [address] Apr, [facility] [address] [id number] [address] [place] [address], [place] [address] Mar, [facility] [address] [id number] [address] [place] [address], [place] [address] Mar, [facility] [address] [id number] [address] [place] [address], [place] [address] Feb, [facility] [address] [id number] [address] [place] [address], [place] [address] Feb, [facility] [address] [id number] [address] [place] [address], [place] [address] Feb, [facility] [address] [id number] [address] [place] [address], [place] [address] Feb, [facility] [address] [id number] [address] [place] [address], [place] [address] Feb, [facility] [address] [id number] [address] [place] [address], [place] [address] Feb, [facility] [address] [id number] [address] [place] [address], [place] [address] Feb, [facility] [address] [id number] [address] [place] [address], [place] [address] Feb, [facility] [address] [id number] [address] [place] [address], [place] [address] Feb, [facility] [address] [id number] [address] [place] [address], [place] [address] Feb, [facility] [address] [id number] [address] [place] [address], [place] [address] Jan, [facility] [address] [id number] [address] [place] [address], [place] [address] Jan, [facility] [address] [id number] [address] [place] [address], [place] [address] Jan, [facility] [address] [id number] [address] [place] [address], [place] [address] Jan, [facility] [address] [id number] [address] [place] [address], [place] [address] Jan, [facility] [address] [id number] [address] [place] [address], [place] [address] Jan, [facility] [address] [id number] [address] [place] [address], [place] [address] Jan, [facility] [address] [id number] [address] [place] [address], [place] [address] Jan, 2014 [facility] [address] [id number] [address] [place] [address], [place] [id number] 16 Jan, 2014 [facility] [address] [id number] [address] [place] [address], [place] [address] Jan, [facility] [address] [id number] [address] [place] [address], [place] [address] Jan, [facility] [address] [id number] [address] [place] [address], [place] [id number] 26 Dec, 2013 [facility] [address] [id number] [address] [place] [address], [place] [address] 26 Dec, 2013 [facility] [address] [id number] [address] [place] [address], [place] [address] 19 Dec, 2013 [facility] [address] [id number] [address] [place] [address], [place] [address] Dec, 2013 [facility] [address] [id number] [address] [place] [address], [place] [address] 18 Dec, 2013 [facility] [address] [id number] [address] [place] [address], [place] [address] 18 Dec, 2013 [facility] [address] [id number] [address] [place] [address], [place] [address] Dec, [facility] [address] [id number] [address] [place] [address], [place] [address] Dec, [facility] [address] [id number] [address] [place] [address], [place] [address] Nov, [facility] [address] [id number] [address] [place] [address], [place] [address] Nov, [facility] [address] [id number] [address] [place] [address], [place] [address] Nov, [facility] [address] [id number] [address] [place] [address], [place] [address] Nov, [facility] [address] [id number] [address] [place] [address], [place] [address] Nov, [facility] [address] [id number] [address] [place] [address], [place] [address] Nov, [facility] [address] [id number] [address] [place] [address], [place] [address] Nov, [facility] [address] [id number] [address] [place] [address], [place] [address] Nov, [facility] [address] [id number] [address] [place] [address], [place] [address] Oct, [facility] [address] [id number] [address] [place] [address], [place] [address] Oct, [facility] [address] [id number] [address] [place] [address], [place] [address] Oct, [facility] [address] [id number] [address] [place] [address], [place] [address] Oct, [facility] [address] [id number] [address] [place] [address], [place] [address] Sep, [facility] [address] [id number] [address] [place] [address], [place] [address] Sep, [facility] [address] [id number] [address] [place] [address], [place] [address] Sep, [facility] [address] [id number] [address] [place] [address], [place] [address] Sep, [facility] [address] [id number] [address] [place] [address], [place] [address] Sep, [facility] [address] [id number] [address] [place] [address], [place] [address] Sep, [facility] [address] [id number] [address] [place] [address], [place] [address] Sep, [facility] [address] [id number] [address] [place] [address], [place] [address] Sep, [facility] [address] [id number] [address] [place] [address], [place] [address] August, [facility] [address] [id number] [address] [place] [address], [place] [address] August, [facility] [address] [id number] [address] [place] [address], [place] [address] August, [facility] [address] [id number] [address] [place] [address], [place] [address] August, [facility] [address] [id number] [address] [place] [address], [place] [address] August, [facility] [address] [id number] [address] [place] [address], [place] [address] August, [facility] [address] [id number] [address] [place] [address], [place] [address] August, [facility] [address] [id number] [address] [place] [address], [place] [address] August, [facility] [address] [id number] [address] [place] [address], [place] [address] August, [facility] [address] [id number] [address] [place] [address], [place] [address] August, [facility] [address] [id number] [address] [place] [address], [place] [address] Jul, [facility] [address] [id number] [address] [place] [address], [place] [address] Jul, [facility] [address] [id number] [address] [place] [address], [place] [address] Jul, [facility] [address] [id number] [address] [place] [address], [place] [address] Jul, [facility] [address] [id number] [address] [place] [address], [place] [address] Jul, [facility] [address] [id number] [address] [place] [address] Jul, [facility] [address] [id number] [address] [place] [address], [place] [address] Jul, [facility] [address] [id number] [address] [place] [address], [place] [address] Jul, [facility] [address] [id number] [address] [place] [address], [place] [address] Jun, [facility] [address] [id number] [address] [place] [address], [place] [address] Jun, [facility] [address] [id number] [address] [place] [address], [place] [address] Jun, [facility] [address] [id number] [address] [place] [address], [place] [address] Jun, [facility] [address] [id number] [address] [place] [address], [place] [address] Jun, [facility] [address] [id number] [address] [place] [address], [place] [address] Jun, [facility] [address] [id number] [address] [place] [address], [place] [address] May, [facility] [address] [id number] [address] [place] [address], [place] [address] May, [facility] [address] [id number] [address] [place] [address], [place] [address] May, [facility] [address] [id number] [address] [place] [address], [place] [address] May, [facility] [address] [id number] [address] [place] [address], [place] [address] May, [facility] [address] [id number] [address] [place] [address], [place] [address] May, [facility] [address] [id number] [address] [place] [address], [place] [address] May, [facility] [address] [id number] [address] [place] [address], [place] [address] Apr, [facility] [address] [id number] [address] [place] [address], [place] [address] Apr, [facility] [address] [id number] [address] [place] [address], [place] [address] Apr, [facility] [address] [id number] [address] [place] [address], [place] [address] Apr, [facility] [address] [id number] [address] [place] [address], [place] [address] Apr, [facility] [address] [id number] [address] [place] [address], [place] [address] Apr, [facility] [address] [id number] [address] [place] [address], [place] [address] Mar, [facility] [address] [id number] [address] [place] [address], [place] [address] Mar, [facility] [address] [id number] [address] [place] [address], [place] [address] Mar, [facility] [address] [id number] [address] [place] [address], [place] [address] Mar, [facility] [address] [id number] [address] [place] [address], [place] [address] Mar, [facility] [address] [id number] [address] [place] [address], [place] [address] 19 Mar, 2013 [facility] [address] [id number] [address] [place] [address], [place] [address] 16 Mar, 2013 [facility] [address] [id number] [address] [place] [address], [place] [address] 16 Mar, 2013 [facility] [address] [id number] [address] [place] [address], [place] [address] 12 Mar, 2013 [facility] [address] [id number] [address] [place] [address], [place] [address] Mar, [facility] [address] [id number] [address] [place] [address], [place] [address] Feb, [facility] [address] [id number] [address] [place] [address], [place] [address] Feb, [facility] [address] [id number] [address] [place] [address], [place] [address] Feb, [facility] [address] [id number] [address] [place] [id number] Feb, [facility] [address] [id number] [address] [place] [address], [place] [address] Feb, [facility] [address] [id number] [address] [place] [address], [place] [address] Feb, [facility] [address] [id number] [address] [place] [address], [place] [address] Feb, [facility] [address] [id number] [address] [place] [address], [place] [address] Feb, [facility] [address] [id number] [address] [place] [address], [place] [address] Feb, [facility] [address] [id number] [address] [place] [address], [place] [address] Feb, [facility] [address] [id number] [address] [place] [id number] Jan, [facility] [address] [id number] [address] [place] [address] Jan, [facility] [address] [id number] [address] [place] [address], [place] [address] Jan, [facility] [address] [id number] [address] [place] [address], [place] [address] Jan, [facility] [address] [id number] [address] [place] [address], [place] [address] Jan, [facility] [address] [id number] [address] [place] [address], [place] [address] Jan, [facility] [address] [id number] [address] [place] [address], [place] [id number] Jan, [facility] [address] [id number] [address] [place] [address], [place] [address] Jan, [facility] [address] [id number] [address] [place] [address], [place] [address] Jan, [facility] [address] [id number] [address] [place] [address], [place] [address] Dec, [facility] [address] [id number] [address] [place] [address], [place] [address] Dec, [facility] [address] [id number] [address] [place] [address], [place] [address] Dec, [facility] [address] [id number] [address] [place] [address], [place] [address] Dec, [facility] [address] [id number] [address] [place] [address], [place] [id number] Nov, [facility] [address] [id number] [address] [place] [address], [place] [id number] Nov, [facility] [address] [id number] [address] [place] [address], [place] [address] Nov, [facility] [address] [id number] [address] [place] [address], [place] [address] Nov, [facility] [address] [id number] [address] [place] [address], [place] [address] Nov, [facility] [address] [id number] [address] [place] [address], [place] [id number] Nov, [facility] [address] [id number] [address] [place] [address], [place] [address] Oct, [facility] [address] [id number] [address] [place] [address], [place] [address] Oct, [facility] [address] [id number] [address] [place] [address], [place] [address] Oct, [facility] [address] [id number] [address] [place] [address], [place] [id number] 08 Oct, 2012 [facility] [address] [id number] [address] [place] [address], [place] [address] Sep, [facility] [address] [id number] [address] [place] [address], [place] [address] Sep, [facility] [address] [id number] [address] [place] [address], [place] [address] Sep, [facility] [address] [id number] [address] [place] [address], [place] [address] 14 Sep, 2012 [facility] [address] [id number] [address] [place] [address], [place] [address] Sep, [facility] [address] [id number] [address] [place] [address], [place] [address] August, [facility] [address] [id number] [address] [place] [address], [place] [address] August, [facility] [address] [id number] [address] [place] [address], [place] [address] Jul, [facility] [address] [id number] [address] [place] [address], [place] [address] Jul, [facility] [address] [id number] [address] [place] [address], [place] [id number] 15 Jul, 2012 [facility] [address] [id number] [address] [place] [address], [place] [id number] 09 Jul, 2012 [facility] [address] [id number] [address] [place] [address], [place] [id number] 08 Jul, 2012 [facility] [address] [id number] [address] [place] [address], [place] [address] Jun, [facility] [address] [id number] [address] [place] [id number] Jun, [facility] [address] [id number] [address] [place] [address], [place] [address] Jun, [facility] [address] [id number] [address] [place] [address], [place] [id number] 06 Jun, 2012 [facility] [address] [id number] [address] [place] [address], [place] [address] Jun, [facility] [address] [id number] [address] [place] [address], [place] [id number] May, [facility] [address] [id number] [address] [place] [address], [place] [address] May, [facility] [address] [id number] [address] [place] [address], [place] [address] May, [facility] [address] [id number] [address] [place] [address], [place] [address] May, [facility] [address] [id number] [address] [place] [address], [place] [address] May, [facility] [address] [id number] [address] [place] [address], [place] [address] 14 May, 2012 [facility] [address] [id number] [address] [place] [address], [place] [id number] May, [facility] [address] [id number] [address] [place] [address], [place] [address] 08 May, 2012 [facility] [address] [id number] [address] [place] [address], [place] [address] May, [facility] [address] [id number] [address] [place] [address], [place] [address] Apr, [facility] [address] [id number] [address] [place] [address], [place] [address] Apr, [facility] [address] [id number] [address] [place] [address], [place] [address] Apr, [facility] [address] [id number] [address] [place] [address], [place] [address] 14 Apr, 2012 [facility] [address] [id number] [address] [place] [address], [place] [address] Apr, [facility] [address] [id number] [address] [place] [address], [place] [address] Mar, [facility] [address] [id number] [address] [place] [address], [place] [address] Mar, [facility] [address] [id number] [address] [place] [address], [place] [address] Mar, [facility] [address] [id number] [address] [place] [address], [place] [address] Mar, [facility] [address] [id number] [address] [place] [address], [place] [address] Mar, [facility] [address] [id number] [address] [place] [address], [place] [address] Mar, [facility] [address] [id number] [address] [place] [address], [place] [address] Mar, [facility] [address] [id number] [address] [place] [address], [place] [address] Mar, [facility] [address] [id number] [address] [place] [address], [place] [address] Mar, [facility] [address] [id number] [address] [place] [address], [place] [address] Mar, [facility] [address] [id number] [address] [place] [address], [place] [address] Feb, [facility] [address] [id number] [address] [place] [address], [place] [address] Feb, [facility] [address] [id number] [address] [place] [address], [place] [address] 29 Feb, 2012 [facility] [address] [id number] [address] [place] [address], [place] [address] Feb, [facility] [address] [id number] [address] [place] [address], [place] [address] Feb, [facility] [address] [id number] [address] [place] [address], [place] [address] Feb, [facility] [address] [id number] [address] [place] [address], [place] [address] Feb, [facility] [address] [id number] [address] [place] [address], [place] [address] Feb, [facility] [address] [id number] [address] [place] [address], [place] [address] Feb, [facility] [address] [id number] [address] [place] [address], [place] [address] 16 Feb, 2012 [facility] [address] [id number] [address] [place] [address], [place] [address] Feb, [facility] [address] [id number] [address] [place] [address], [place] [address] Feb, [facility] [address] [id number] [address] [place] [address], [place] [address] Feb, [facility] [address] [id number] [address] [place] [address], [place] [address] Feb, [facility] [address] [id number] [address] [place] [address], [place] [address] Feb, [facility] [address] [id number] [address] [place] [address], [place] [address] Feb, [facility] [address] [id number] [address] [place] [address], [place] [address] Feb, [facility] [address] [id number] [address] [place] [address], [place] [address] Feb, [facility] [address] [id number] [address] [place] [address], [place] [address] Jan, [facility] [address] [id number] [address] [place] [address], [place] [address] Jan, [facility] [address] [id number] [address] [place] [address], [place] [address] Jan, [facility] [address] [id number] [address] [place] [address], [place] [address] Jan, [facility] [address] [id number] [address] [place] [address], [place] [address] Jan, [facility] [address] [id number] [address] [place] [address], [place] [address] Jan, [facility] [address] [id number] [address] [place] [address], [place] [address] Jan, [facility] [address] [id number] [address] [place] [address], [place] [address] Jan, [facility] [address] [id number] [address] [place] [address], [place] [address] Jan, [facility] [address] [id number] [address] [place] [address], [place] [address] Jan, [facility] [address] [id number] [address] [place] [address], [place] [address] 24 Dec, 2011 [facility] [address] [id number] [address] [place] [address], [place] [address] 18 Dec, 2011 [facility] [address] [id number] [address] [place] [address], [place] [address] Dec, [facility] [address] [id number] [address] [place] [address], [place] [address] Dec, [facility] [address] [id number] [address] [place] [address], [place] [address] Nov, [facility] [address] [id number] [address] [place] [address], [place] [address] Nov, [facility] [address] [id number] [address] [place] [address], [place] [address] Nov, [facility] [address] [id number] [address] [place] [address], [place] [address] Nov, [facility] [address] [id number] [address] [place] [address], [place] [address] Nov, [facility] [address] [id number] [address] [place] [address], [place] [address] Nov, [facility] [address] [id number] [address] [place] [address], [place] [address] Oct, [facility] [address] [id number] [address] [place] [address], [place] [address] Oct, [facility] [address] [id number] [address] [place] [address], [place] [address] Oct, [facility] [address] [id number] [address] [place] [address], [place] [address] Oct, [facility] [address] [id number] [address] [place] [address], [place] [address] Oct, [facility] [address] [id number] [address] [place] [address], [place] [address] Sep, [facility] [address] [id number] [address] [place] [address], [place] [address] Sep, [facility] [address] [id number] [address] [place] [address], [place] [address] Sep, [facility] [address] [id number] [address] [place] [address], [place] [address] Sep, [facility] [address] [id number] [address] [place] [address], [place] [address] Sep, [facility] [address] [id number] [address] [place] [address], [place] [address] August, [facility] [address] [id number] [address] [place] [address], [place] [address] August, [facility] [address] [id number] [address] [place] [address], [place] [address] August, [facility] [address] [id number] [address] [place] [address], [place] [address] August, [facility] [address] [id number] [address] [place] [address], [place] [address] 27 Jul, 2011 [facility] [address] [id number] [address] [place] [address], [place] [address] 24 Jul, 2011 [facility] [address] [id number] [address] [place] [address], [place] [address] Jul, [facility] [address] [id number] [address] [place] [address], [place] [address] Jul, [facility] [address] [id number] [address] [place] [address], [place] [address] Jul, [facility] [address] [id number] [address] [place] [address], [place] [address] Jul, [facility] [address] [id number] [address] [place] [address], [place] [address] Jul, [facility] [address] [id number] [address] [place] [address], [place] [address] 10 Jul, 2011 [facility] [address] [id number] [address] [place] [address], [place] [address] Jul, [facility] [address] [id number] [address] [place] [address], [place] [address] 07 Jul, 2011 [facility] [address] [id number] [address] [place] [address], [place] [address] 05 Jul, 2011 [facility] [address] [id number] [address] [place] [address], [place] [address] 03 Jul, 2011 [facility] [address] [id number] [address] [place] [address], [place] [address] Jul, [facility] [address] [id number] [address] [place] [address], [place] [address] Jul, [facility] [address] [id number] [address] [place] [address], [place] [address] 28 Jun, 2011 [facility] [address] [id number] [address] [place] [address], [place] [address] 27 Jun, 2011 [facility] [address] [id number] [address] [place] [address], [place] [address] Jun, [facility] [address] [id number] [address] [place] [address], [place] [address] 16 Jun, 2011 [facility] [address] [id number] [address] [place] [address], [place] [address] May, [facility] [address] [id number] [address] [place] [address], [place] [address] 16 May, 2011 [facility] [address] [id number] [address] [place] [address], [place] [address] May, [facility] [address] [id number] [address] [place] [address], [place] [address] Apr, [facility] [address] [id number] [address] [place] [address], [place] [address] Apr, [facility] [address] [id number] [address] [place] [address], [place] [address] Apr, [facility] [address] [id number] [address] [place] [address], [place] [address] Apr, [facility] [address] [id number] [address] [place] [address], [place] [address] Apr, [facility] [address] [id number] [address] [place] [address], [place] [address] Mar, [facility] [address] [id number] [address] [place] [address], [place] [address] Mar, [facility] [address] [id number] [address] [place] [address], [place] [address] Mar, [facility] [address] [id number] [address] [place] [id number] 20 Mar, 2011 [facility] [address] [id number] [address] [place] [address], [place] [address] 16 Mar, 2011 [facility] [address] [id number] [address] [place] [id number] 09 Mar, 2011 [facility] [address] [id number] [address] [place] [address], [place] [address] 05 Mar, 2011 [facility] [address] [id number] [address] [place] [address], [place] [id number] 29 Feb, 2011 [facility] [address] [id number] [address] [place] [address], [place] [address] Feb, [facility] [address] [id number] [address] [place] [address], [place] [address] Feb, [facility] [address] [id number] [address] [place] [address] Feb, [facility] [address] [id number] [address] [place] [address], [place] [address] 16 Feb, 2011 [facility] [address] [id number] [address] [place] [id number] 14 Feb, 2011 [facility] [address] [id number] [address] [place] [id number] Feb, [facility] [address] [id number] [address] [place] [address] 31 Jan, 2011 [facility] [address] [id number] [address] [place] [id number] 31 Jan, 2011 [facility] [address] [id number] [address] [place] [address] 31 Jan, 2011 [facility] [address] [id number] [address] [place] [address] 18 Jan, 2011 [facility] [address] [id number] [address] [place] [address] 17 Jan, 2011 [facility] [address] [id number] [address] [place] [address], [place] [address] 17 Jan, 2011 [facility] [address] [id number] [address] [place] [address], [place] [address] 17 Jun, 2010 [facility] [address] [id number] [address] [place] [address], [place] [address] 30 Mar, 2010 [facility] [address] [id number] [address] [place] [address], [place] [address] 20 Mar, 2010 [facility] [address] [id number] [address] [place] [address], [place] [address] 14 Mar, 2010 [facility] [address] [id number] [address] [place] [address], [place] [address] 14 Mar, 2010 [facility] [address] [id number] [address] [place] [address], [place] [address] 13 Mar, 2010 [facility] [address] [id number] [address] [place] [address], [place] [address] 07 Mar, 2010 [facility] [address] [id number] [address] [place] [address], [place] [address] 02 Mar, 2010 [facility] [address] [id number] [address] [place] [address], [place] [address] 01 Mar, 2010 [facility] [address] [id number] [address] [place] [address], [place] [address] 30 Feb, 2010 [facility] [address] [id number] [address] [place] [address], [place] [address] 29 Feb, 2010 [facility] [address] [id number] [address] [place] [address], [place] [address] 17 Feb, 2010 [facility] [address] [id number] [address] [place] [address], [place] [address] 17 Feb, 2010 [facility] [address] [id number] [address] [place] [address], [place] [id number] 16 Feb, 2010 [facility] [address] [id number] [address] [place], [place] [address] [address] 08 Feb, 2010 [facility] [address] [id number] [address] [place] [address], [place] [address] Feb, [facility] [address] [id number] [address] [place] [address], [place] [address] Feb, [facility] [address] [id number] [address] [place] [address], [place] [address] Jan, [facility] [address] [id number] [address] [place] [address], [place] [address] Jan, [facility] [address] [id number] [address] [place] [address], [place] [address] Jan, [facility] [address] [id number] [address] [place] [address], [place] [address] Jan, [facility] [address] [id number] [address] [place] [address], [place] [address] 29 Mar, 2009 [facility] [address] [id number] [address] [place] [address], [place] [address] 22 Mar, 2009 [facility] [address] [id number] [address] [place] [address], [place] [id number] 19 Mar, 2009 [facility] [address] [id number] [address] [place] [id number] 19 Mar, 2009 [facility] [address] [id number] [address] [place] [id number] 14 Mar, 2009 [facility] [address] [id number] [address] [place] [id number] 10 Mar, 2009 [facility] [address] [id number] [address] [place] [address], [place] [address] 18 Feb, 2009 [facility] [address] [id number] [address] [place] [id number] 18 Feb, 2009 [facility] [address] [id number] [address] [place] [id number] 13 Jan, 2009 [facility] [address] [id number] [address] [place] [id number] 10 Sep, 2008 [facility] [address] [facility] [id number] [address] [place] [id number] 18 May, 2008 IMMUNIZATIONS No Known Immunizations [...] Surgical History Left ear surgery Hospitalization History [facility] in [place]- Spontane ous Pneumothorax Hospitalization History [facility]- Colon resection Hospitalization History [facility] - diarrhea/ couldnt urin ate nov 2017 Hospitalization History pain /hip to foot right side 10/16/19 19
--- OUTSIDE RECORDS SUMMARY | 2019-08-28 09:09 | XMS REPORT ---
Author Author Dixon Lundberg Doctor Organization [facility] Address Unknown Phone Unavailable Care Team Providers Care Security Tech Name Role Phone Migration, Doctor Unavailable Unavailable PROBLEMS Type Condition ICD9-CM Code NHU75-OT Code Onset Dates Condition S tatus SNOMED Code Problem Insomnia G47.00 Active 667749800 Problem Anxiety F41.9 Active 23677666 Problem HTN (hypertension) I10 Active 3 9156432 Problem Hyperlipidemia E78.5 Active 90740 004 Problem Thoracic back pain, unspecif ied back pain laterality, unspecified chronicity M54.6 Active 883741482 Problem Vitamin D deficiency E55.9 Active 69508456 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 21385351 Problem Chronic pain G89.29 Active 6763726 1 Problem Schizophrenia, unspecified type F20.9 Active 19027969 Problem Constipation K59.00 Active 8180196 8 Problem Environmental allergies Z91.09 Active 906762996 Problem Primary insomnia F51.01 Active 397 2004 Problem Chronic kidney disease, stage III (moderate) N18.3 Active 846109992 Problem Vision loss H54.7 Active 18725231 1 ALLERGIES No Information ENCOUNTERS Encounter Location Date Diagnosis [place] [address] [facility] [id number] [address] [place] [address] Nov, [facility] [address] [facility] [id number] [address] [place] [address] Oct, Thoracic back pain, unspecif ied back pain laterality, unspecified chronicity M54.6 [facility] [address] [facility] [id number] [address] [place] [address] Oct, Anxiety F41.9 and Thoracic b ack pain, unspecified back pain laterality, unspecified chronicity M54.6 [place] [address] [facility] [id number] [address] [place] [address] Oct, Schizophrenia, unspecified t ype F20.9 and Acute kidney injury N17.9 [facility] [address] [id number] [address] [place] [phone] Oct, [facility] [place] [address] [id number] [address] [place] [id number] Oct, [facility] [address] [id number] [address] [place] [address] Oct, Thoracic back pain, unspecif ied back pain laterality, unspecified chronicity M54.6 [facility] [address] [id number] [address] [place] [phone] Oct, [facility] [address] [id number] [address] [place] [phone] Oct, [facility] [address] [id number] [address] [place] [address] Sep, Anxiety F41.9 [facility] [address] [id number] [address] [place] [id number] Sep, [facility] [address] [id number] [address] [place] [phone] Sep, Thoracic back pain, unspecif ied back pain laterality, unspecified chronicity M54.6 [facility] [address] [id number] [address] [place] [phone] Sep, [facility] [address] [id number] [address] [place] [phone] Sep, [facility] [address] [id number] [address] [place] [address] Sep, [facility] [address] [id number] [address] [place] [phone] Sep, [facility] [address] [id number] [address] [place] [address] Sep, [facility] [address] [id number] [address] [place] [phone] Sep, [facility] [address] [id number] [address] [place] [address] Sep, Chronic pain G89.29 ; Chroni c kidney disease, stage III (moderate) N18.3 ; Hyperlipidemia E78.5 and Insomnia G47.00 [facility] [address] [id number] [address] [place] [address] Sep, Thoracic back pain, unspecif ied back pain laterality, unspecified chronicity M54.6 [facility] [address] [id number] [address] [place] [address] August, Anxiety F41.9 [facility] [address] [id number] [address] [place] [address] August, Thoracic back pain, unspecif ied back pain laterality, unspecified chronicity M54.6 and Anxiety F41.9 [facility] [address] [id number] [address] [place] [address] August, 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 [facility] [address] [id number] [address] [place] [address] August, 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 [facility] [address] [id number] [address] [place] [address] August, [facility] [address] [id number] [address] [place] [id number] August, [facility] [address] [id number] [address] [place] [address] August, Thoracic back pain, unspecif ied back pain laterality, unspecified chronicity M54.6 [facility] [address] [id number] [address] [place] [phone] August, [facility] [address] [facility] [id number] [address] [place] [address] August, Anxiety F41.9 and Thoracic b ack pain, unspecified back pain laterality, unspecified chronicity M54.6 [facility] [address] [id number] [address] [place] [address] Jul, [facility] [address] [id number] [address] [place] [address] Jul, Thoracic back pain, unspecif ied back pain laterality, unspecified chronicity M54.6 [facility] [address] [id number] [address] [place] [address] Jun, Anxiety F41.9 and Thoracic b ack pain, unspecified back pain laterality, unspecified chronicity M54.6 [facility] [address] [id number] [address] [place] [address] Jun, Anxiety F41.9 and Thoracic b ack pain, unspecified back pain laterality, unspecified chronicity M54.6 [facility] [address] [id number] [address] [place] [address] Jun, Thoracic back pain, unspecif ied back pain laterality, unspecified chronicity M54.6 [facility] [address] [id number] [address] [place] [address] Jun, Anxiety F41.9 and Thoracic b ack pain, unspecified back pain laterality, unspecified chronicity M54.6 [facility] [address] [id number] [address] [place] [address] May, [facility] [address] [id number] [address] [place] [address] May, [facility] [address] [id number] [address] [place] [address] May, [facility] [address] [id number] [address] [place] [address] May, Anxiety F41.9 and Encounter for medication monitoring Z51.81 [facility] [address] [id number] [address] [place] [address] May, Anxiety F41.9 and Thoracic b ack pain, unspecified back pain laterality, unspecified chronicity M54.6 [facility] [address] [id number] [address] [place] [address] Apr, Hyperlipidemia 272.4 [facility] [address] [id number] [address] [place] [address] Apr, Chronic pain G89.29 ; Anxiet y F41.9 ; Cervical radiculopathy M54.12 and Vision loss H54.7 [facility] [address] [id number] [address] [place] [address] Apr, [facility] [address] [id number] [address] [place] [address] Apr, Anxiety F41.9 and Thoracic b ack pain, unspecified back pain laterality, unspecified chronicity M54.6 [place] [address] [facility] [id number] [address] [place] [address] 17 Mar, 2018 [place] [address] [facility] [id number] [address] [place] [address] Mar, Anxiety F41.9 and Thoracic b ack pain, unspecified back pain laterality, unspecified chronicity M54.6 [place] [address] [id number] [address] [place] [id number] 14 Feb, 2018 Anxiety F41.9 and Thoracic b ack pain, unspecified back pain laterality, unspecified chronicity M54.6 [place] [address] [id number] [address] [place] [address] 07 Feb, 2018 Thoracic back pain, unspecif ied back pain laterality, unspecified chronicity M54.6 [place] [address] [id number] [address] [place] [phone] Jan, [place] [address] [facility] [id number] [address] [place] [address] Jan, Anxiety F41.9 and Thoracic b ack pain, unspecified back pain laterality, unspecified chronicity M54.6 [place] [address] [id number] [address] [place] [address] 19 Dec, 2017 Diarrhea of presumed infecti ous origin R19.7 [facility] [address] [id number] [address] [place] [address] 19 Dec, 2017 Diarrhea of presumed infecti ous origin R19.7 [facility] [address] [id number] [address] [place] [address] 18 Dec, 2017 Thoracic back pain, unspecif ied back pain laterality, unspecified chronicity M54.6 [facility] [address] [id number] [address] [place] [address] 17 Dec, 2017 [place] [address] [id number] [address] [place] [id number] 17 Dec, 2017 Anxiety F41.9 and Thoracic b ack pain, unspecified back pain laterality, unspecified chronicity M54.6 [place] [address] [id number] [address] [place] [address] 13 Dec, 2017 Diarrhea of presumed infecti ous origin R19.7 [facility] [address] [id number] [address] [place] [phone] Dec, [facility] [address] [id number] [address] [place] [address] Dec, Anxiety F41.9 and Thoracic b ack pain, unspecified back pain laterality, unspecified chronicity M54.6 [place] [address] [id number] [address] [place] [address] Dec, Anxiety F41.9 and Thoracic b ack pain, unspecified back pain laterality, unspecified chronicity M54.6 [facility] [address] [place] [id number] Dec, Diarrhea of presumed infectious origin R 19.7 ; Anxiety F41.9 ; Thoracic back pain, unspecified back pain laterality, unspecified chronicity M54.6 and HTN (hypertension) I10 [facility] [address] [facility] [id number] [address] [place] [address] Dec, Anxiety F41.9 [facility] [address] [place] [id number] Dec, Anxiety F41.9 ; Diarrhea of presumed inf ectious origin R19.7 ; Generalized abdominal pain R10.84 and Localized edema R60.0 [place] [address] [id number] [address] [place] [address] Nov, [facility] [address] [place] [id number] Nov, Anxiety F41.9 ; Urinary retention R33.9 ; Diarrhea of presumed infectious origin R19.7 ; Weakness R53.1 ; Acute kidney failure, unspecified N17.9 ; Chronic kidney disease, stage III (moderate) N18.3 and Thoracic back pain, unspecified back pain laterality, unspecified chronicity M54.6 [place] [address] [id number] [address] [place] [address] Oct, Thoracic back pain, unspecif ied back pain laterality, unspecified chronicity M54.6 and Anxiety F41.9 [place] [address] [id number] [address] [place] [id number] Sep, Thoracic back pain, unspecif ied back pain laterality, unspecified chronicity M54.6 and Anxiety F41.9 [place] [address] [facility] [id number] [address] [place] [address] Sep, Thoracic back pain, unspecif ied back pain laterality, unspecified chronicity M54.6 ; Anxiety F41.9 and Encounter for medication monitoring Z51.81 [place] [address] [id number] [address] [place] [address] August, [place] [address] [id number] [address] [place] [id number] August, Thoracic back pain, unspecif ied back pain laterality, unspecified chronicity M54.6 and Anxiety F41.9 [place] [address] [id number] [address] [place] [address] August, Hyperlipidemia E78.5 and HTN (hypertension) I10 [facility] [address] [id number] [address] [place] [address] August, [facility] [address] [facility] [id number] [address] [place] [address] August, Medicare welcome exam Z00.00 ; Chronic kidney failure N18.9 ; Anxiety F41.9 ; Chronic pain G89.29 ; Insomnia G47.00 ; Hyperlipidemia E78.5 ; HTN (hypertension) I10 and Thoracic back pain, unspecified back pain laterality, unspecified chronicity M54.6 [facility] [address] [facility] [id number] [address] [place] [address] Jul, [facility] [address] [id number] [address] [place] [address] Jul, [facility] [address] [facility] [id number] [address] [place] [phone] Jul, [facility] [address] [id number] [address] [place] [address] Jul, Anxiety F41.9 [facility] [address] [facility] [id number] [address] [place] [address] Jul, Thoracic back pain, unspecif ied back pain laterality, unspecified chronicity M54.6 and Anxiety F41.9 [facility] [address] [facility] [id number] [address] [place] [address] Jun, Thoracic back pain, unspecif ied back pain laterality, unspecified chronicity M54.6 and Anxiety F41.9 [facility] [address] [id number] [address] [place] [address] May, Thoracic back pain, unspecif ied back pain laterality, unspecified chronicity M54.6 and Anxiety F41.9 [facility] [address] [facility] [id number] [address] [place] [address] Apr, Thoracic back pain, unspecif ied back pain laterality, unspecified chronicity M54.6 and Anxiety F41.9 [place] [address] [address] Mar, [place] [address] [place] [id number] [place] [address] Mar, Thoracic back pain, unspecif ied back pain laterality, unspecified chronicity M54.6 and Anxiety F41.9 [place] [address] [address] Mar, Thoracic back pain, unspecif ied back pain laterality, unspecified chronicity M54.6 ; HTN (hypertension) I10 ; Hyperlipidemia E78.5 and Anxiety F41.9 [place] [address] [place] [id number] [place] [address] Feb, Thoracic back pain, unspecif ied back pain laterality, unspecified chronicity M54.6 and Anxiety F41.9 [place] [address] [address] Nov, [place] [address] [address] Oct, [place] [address] [place] [id number] [place] [address] Oct, Thoracic back pain, unspecif ied back pain laterality, unspecified chronicity M54.6 [place] [address] [address] Oct, HTN (hypertension) I10 ; Con stipation K59.00 ; Hyperlipidemia E78.5 ; Thoracic back pain, unspecified back pain laterality, unspecified chronicity M54.6 ; Chronic pain G89.29 ; Anxiety F41.9 ; Chronic kidney failure N18.9 ; Environmental allergies Z91.09 ; Vitamin D deficiency E55.9 and Primary insomnia F51.01 [place] [address] [place] [id number] [address] [place] [address] Sep, Anxiety F41.9 [facility] [address] [id number] [address] [place] [address] Sep, [facility] [address] [id number] [address] [place] [address] August, Anxiety F41.9 [facility] [address] [id number] [address] [place] [address], [place] [address] August, [facility] [address] [id number] [address] [place] [address] Jul, Anxiety F41.9 [facility] [address] [id number] [address] [place] [address], [place] [address] Jul, [facility] [address] [id number] [address] [place] [address] Jun, Anxiety F41.9 [facility] [address] [id number] [address] [place] [address], [place] [address] Jun, [facility] [address] [id number] [address] [place] [address] May, [facility] [address] [id number] [address] [place] [address], [place] [address] May, [facility] [address] [id number] [address] [place] [address] May, [facility] [address] [id number] [address] [place] [address] Apr, [facility] [address] [id number] [address] [place] [address] Apr, [facility] [address] [id number] [address] [place] [address] Apr, Anxiety F41.9 [facility] [address] [id number] [address] [place] [address] Apr, Anxiety F41.9 [facility] [address] [id number] [address] [place] [address] Apr, [facility] [address] [facility] [id number] [address] [place] [address] Mar, HTN (hypertension) I10 ; Phillip mor R25.1 ; Hypercholesterolemia E78.0 ; Constipation K59.00 ; Chronic pain G89.29 ; Hyperlipidemia E78.5 ; Insomnia G47.00 ; Anxiety F41.9 and Thoracic back pain, unspecified back pain laterality, unspecified chronicity M54.6 [facility] [address] [id number] [address] [place] [address] Mar, Tremor R25.1 ; HTN (hyperten stas) I10 ; Hypercholesterolemia E78.0 ; Constipation K59.00 ; Chronic pain G89.29 ; Hyperlipidemia E78.5 ; Insomnia G47.00 ; Anxiety F41.9 and Thoracic back pain, unspecified back pain laterality, unspecified chronicity M54.6 [facility] [address] [place] [id number] [address] [place] [address] Mar, [facility] [address] [facility] [id number] [address] [place] [address] Mar, [facility] [address] [place] [id number] [place] [address] Feb, [facility] [address] [place] [id number] [address] [place] [address] Jan, [facility] [address] [facility] [id number] [address] [place] [address] Jan, [facility] [address] [id number] [address] [place] [address] Dec, [facility] [address] [place] [id number] [address] [place] [address] Nov, [facility] [address] [facility] [id number] [address] [place] [address] Nov, [facility] [address] [place] [id number] [address] [place] [address] Oct, Anxiety F41.9 [facility] [address] [facility] [id number] [address] [place] [address] Oct, Chronic pain G89.29 [facility] [address] [facility] [id number] [address] [place] [address] Sep, [facility] [address] [facility] [id number] [address] [place] [address] Sep, [facility] [address] [facility] [id number] [address] [place] [address] Sep, [facility] [address] [facility] [id number] [address] [place] [address] Sep, [facility] [address] [facility] [id number] [address] [place] [address] Sep, Chronic pain syndrome G89.4 [facility] [address] [place] [id number] [address] [place] [address] Sep, HTN (hypertension) I10 ; Chr onic pain G89.29 ; Hypercholesterolemia E78.0 ; Chronic kidney failure N18.9 ; Constipation, unspecified constipation type K59.00 ; Anxiety F41.9 and Thoracic back pain, unspecified back pain laterality, unspecified chronicity M54.6 [facility] [address] [facility] [id number] [address] [place] [address] August, Chronic pain syndrome G89.4 [facility] [address] [facility] [id number] [address] [place] [address] August, Chronic pain syndrome G89.4 [facility] [address] [facility] [id number] [address] [place] [address] Jul, Anxiety disorder, unspecifie d F41.9 and Chronic pain syndrome G89.4 [facility] [address] [facility] [id number] [address] [place] [address] Jul, Insomnia, unspecified G47.00 and Chronic pain syndrome G89.4 [facility] [address] [facility] [id number] [address] [place] [address] Jul, Allergic rhinitis J30.9 [facility] [address] [facility] [id number] [address] [place] [address] 15 Jul, 2015 Constipation, unspecified K5 9.00 [facility] [address] [facility] [id number] [address] [place] [address] Jul, [facility] [address] [facility] [id number] [address] [place] [address] Jun, [facility] [address] [facility] [id number] [address] [place] [phone] Jun, [facility] [address] [facility] [id number] [address] [place] [phone] Jun, [facility] [address] [facility] [id number] [address] [place] [phone] Jun, [facility] [address] [facility] [id number] [address] [place] [phone] Jun, [facility] [address] [facility] [id number] [address] [place] [phone] Jun, [facility] [address] [place] [id number] [address] [place] [phone] May, [facility] [address] [facility] [id number] [address] [place] [phone] May, [facility] [address] [place] [id number] [address] [place] [id number] May, Anxiety F41.9 ; Insomnia G47 .00 ; Hyperlipidemia E78.5 ; Chronic pain G89.29 ; HTN (hypertension) I10 ; Environmental allergies V15.09 and Constipation 564.00 [facility] [address] [facility] [id number] [address] [place] [phone] Apr, [facility] [address] [place] [id number] [address] [place] [phone] Apr, [facility] [address] [facility] [id number] [address] [place] [phone] Apr, [facility] [address] [facility] [id number] [address] [place] [id number] Mar, [facility] [address] [facility] [id number] [address] [place] [phone] Mar, [facility] [address] [facility] [id number] [address] [place] [id number] Mar, [facility] [address] [facility] [id number] [address] [place] [phone] Feb, [facility] [address] [facility] [id number] [place] [id number] Feb, [facility] [address] [place] [id number] [address] [place] [phone] Feb, [facility] [address] [place] [id number] [address] [place] [id number] Jan, HTN (hypertension) I10 ; Con stipation K59.00 ; Chronic pain G89.29 ; Hyperlipidemia E78.5 ; Hypercholesterolemia E78.0 ; Insomnia G47.00 and Anxiety F41.9 [facility] [address] [facility] [id number] [address] [place] [phone] Jan, [facility] [address] [facility] [id number] [address] [place] [phone] Dec, [facility] [address] [facility] [id number] [address] [place] [phone] Nov, [facility] [address] [facility] [id number] [address] [place] [phone] Oct, Chronic kidney disease, unsp ecified 585.9 ; Chronic pain syndrome 338.4 ; Hyperlipidemia 272.4 and Essential hypertension 401.9 [facility] [address] [facility] [id number] [address] [place] [phone] Oct, Chronic kidney disease 585.9 [facility] [address] [facility] [id number] [address] [place] [id number] 15 Oct, 2014 [facility] [address] [facility] [id number] [address] [place] [phone] Oct, Chronic kidney disease, unsp ecified 585.9 ; Hypercalcemia 275.42 ; Hyperlipidemia 272.4 ; Essential hypertension 401.9 ; Chronic pain syndrome 338.4 ; Insomnia 780.52 ; Constipation 564.00 ; Environmental allergies V15.09 and Anxiety 300.00 [facility] [address] [facility] [id number] [address] [place] [phone] 15 Oct, 2014 Chronic kidney disease 585.9 [facility] [address] [facility] [id number] [address] [place] [id number] Oct, [facility] [address] [facility] [id number] [address] [place] [phone] Oct, Chronic kidney disease 585.9 and Hyperlipidemia 272.4 [facility] [address] [facility] [id number] [address] [place] [phone] Oct, [facility] [address] [facility] [id number] [address] [place] [phone] Oct, [facility] [address] [facility] [id number] [address] [place] [phone] Sep, [facility] [address] [facility] [id number] [address] [place] [phone] Sep, [facility] [address] [facility] [id number] [address] [place] [id number] Sep, Chronic kidney disease 585.9 and Hyperlipidemia 272.4 [facility] [address] [facility] [id number] [address] [place] [phone] Sep, [facility] [address] [facility] [id number] [address] [place] [phone] August, [facility] [address] [facility] [id number] [address] [place] [phone] August, [facility] [address] [id number] [address] [place] [address], [place] [address] 14 Jul, 2014 [facility] [address] [id number] [address] [place] [address], [place] [address] Jul, [facility] [address] [id number] [address] [place] [address], [place] [address] Jun, [facility] [address] [id number] [address] [place] [address], [place] [address] Jun, [facility] [address] [id number] [address] [place] [address], [place] [address] Jun, [facility] [address] [id number] [address] [place] [address], [place] [address] Jun, [facility] [address] [id number] [address] [place] [address], [place] [address] Jun, [facility] [address] [id number] [address] [place] [address], [place] [address] Jun, [facility] [address] [id number] [address] [place] [address], [place] [address] Jun, [facility] [address] [id number] [address] [place] [address], [place] [address] Jun, [facility] [address] [id number] [address] [place] [address], [place] [address] May, [facility] [address] [id number] [address] [place] [address], [place] [address] May, [facility] [address] [id number] [address] [place] [address], [place] [address] May, [facility] [address] [id number] [address] [place] [address], [place] [address] May, [facility] [address] [id number] [address] [place] [address], [place] [address] Apr, [facility] [address] [id number] [address] [place] [address] [place] [address] Apr, [facility] [address] [id number] [address] [place] [address], [place] [address] Apr, [facility] [address] [id number] [address] [place] [address], [place] [address] Apr, [facility] [address] [id number] [address] [place] [address], [place] [address] Apr, [facility] [address] [id number] [address] [place] [address], [place] [address] Apr, [facility] [address] [id number] [address] [place] [address], [place] [address] Apr, [facility] [address] [id number] [address] [place] [address], [place] [address] Apr, [facility] [address] [id number] [address] [place] [address], [place] [address] Apr, [facility] [address] [id number] [address] [place] [address], [place] [address] Apr, [facility] [address] [id number] [address] [place] [address], [place] [address] Apr, [facility] [address] [id number] [address] [place] [address], [place] [address] Mar, [facility] [address] [id number] [address] [place] [address], [place] [address] Mar, [facility] [address] [id number] [address] [place] [address], [place] [address] Feb, [facility] [address] [id number] [address] [place] [address], [place] [address] Feb, [facility] [address] [id number] [address] [place] [address], [place] [address] Feb, [facility] [address] [id number] [address] [place] [address], [place] [address] Feb, [facility] [address] [id number] [address] [place] [address], [place] [address] Feb, [facility] [address] [id number] [address] [place] [address], [place] [address] Feb, [facility] [address] [id number] [address] [place] [address], [place] [address] Feb, [facility] [address] [id number] [address] [place] [address], [place] [address] Feb, [facility] [address] [id number] [address] [place] [address], [place] [address] Feb, [facility] [address] [id number] [address] [place] [address], [place] [address] Feb, [facility] [address] [id number] [address] [place] [address], [place] [address] Jan, [facility] [address] [id number] [address] [place] [address], [place] [address] Jan, [facility] [address] [id number] [address] [place] [address], [place] [address] Jan, [facility] [address] [id number] [address] [place] [address], [place] [address] Jan, [facility] [address] [id number] [address] [place] [address], [place] [address] Jan, [facility] [address] [id number] [address] [place] [address], [place] [address] 24 Jan, 2014 [facility] [address] [id number] [address] [place] [address], [place] [address] Jan, [facility] [address] [id number] [address] [place] [address], [place] [address] Jan, [facility] [address] [id number] [address] [place] [address], [place] [address] 16 Jan, 2014 [facility] [address] [id number] [address] [place] [address], [place] [address] Jan, [facility] [address] [id number] [address] [place] [address], [place] [address] Jan, [facility] [address] [id number] [address] [place] [address], [place] [address] Dec, [facility] [address] [id number] [address] [place] [address], [place] [address] Dec, 2013 [facility] [address] [id number] [address] [place] [address], [place] [address] Dec, 2013 [facility] [address] [id number] [address] [place] [address], [place] [address] Dec, [facility] [address] [id number] [address] [place] [address], [place] [address] Dec, [facility] [address] [id number] [address] [place] [address], [place] [address] Dec, [facility] [address] [id number] [address] [place] [address], [place] [address] Dec, [facility] [address] [id number] [address] [place] [address], [place] [address] Dec, [facility] [address] [id number] [address] [place] [address], [place] [address] Nov, [facility] [address] [id number] [address] [place] [address], [place] [address] Nov, [facility] [address] [id number] [address] [place] [address], [place] [address] Nov, [facility] [address] [id number] [address] [place] [address], [place] [address] Nov, [facility] [address] [id number] [address] [place] [address], [place] [address] Nov, [facility] [address] [id number] [address] [place] [address], [place] [address] Nov, [facility] [address] [id number] [address] [place] [address], [place] [address] Nov, [facility] [address] [id number] [address] [place] [address], [place] [address] Nov, [facility] [address] [id number] [address] [place] [address], [place] [address] Oct, [facility] [address] [id number] [address] [place] [address], [place] [address] Oct, [facility] [address] [id number] [address] [place] [address], [place] [address] Oct, [facility] [address] [id number] [address] [place] [address], [place] [address] Oct, [facility] [address] [id number] [address] [place] [address], [place] [address] Sep, [facility] [address] [id number] [address] [place] [address], [place] [address] Sep, [facility] [address] [id number] [address] [place] [address], [place] [address] Sep, [facility] [address] [id number] [address] [place] [address], [place] [address] Sep, [facility] [address] [id number] [address] [place] [address], [place] [address] Sep, [facility] [address] [id number] [address] [place] [address], [place] [address] Sep, [facility] [address] [id number] [address] [place] [address], [place] [address] Sep, [facility] [address] [id number] [address] [place] [address], [place] [address] Sep, [facility] [address] [id number] [address] [place] [address], [place] [address] August, [facility] [address] [id number] [address] [place] [address], [place] [address] August, [facility] [address] [id number] [address] [place] [address], [place] [address] August, [facility] [address] [id number] [address] [place] [address], [place] [address] August, [facility] [address] [id number] [address] [place] [address], [place] [address] August, [facility] [address] [id number] [address] [place] [address], [place] [address] August, [facility] [address] [id number] [address] [place] [address], [place] [address] August, [facility] [address] [id number] [address] [place] [address], [place] [address] August, [facility] [address] [id number] [address] [place] [address], [place] [address] August, [facility] [address] [id number] [address] [place] [address], [place] [address] August, [facility] [address] [id number] [address] [place] [address], [place] [address] Jul, [facility] [address] [id number] [address] [place] [address], [place] [address] Jul, [facility] [address] [id number] [address] [place] [address], [place] [address] Jul, [facility] [address] [id number] [address] [place] [address], [place] [address] Jul, [facility] [address] [id number] [address] [place] [address], [place] [address] Jul, [facility] [address] [id number] [address] [place] [address], [place] [address] Jul, [facility] [address] [id number] [address] [place] [address], [place] [address] Jul, [facility] [address] [id number] [address] [place] [address] Jul, [facility] [address] [id number] [address] [place] [address], [place] [address] Jun, [facility] [address] [id number] [address] [place] [address], [place] [address] Jun, [facility] [address] [id number] [address] [place] [address], [place] [address] Jun, [facility] [address] [id number] [address] [place] [address], [place] [address] Jun, [facility] [address] [id number] [address] [place] [address], [place] [address] Jun, [facility] [address] [id number] [address] [place] [address], [place] [address] Jun, [facility] [address] [id number] [address] [place] [address], [place] [address] May, [facility] [address] [id number] [address] [place] [address], [place] [address] May, [facility] [address] [id number] [address] [place] [address], [place] [address] May, [facility] [address] [id number] [address] [place] [address], [place] [address] May, [facility] [address] [id number] [address] [place] [address], [place] [address] May, [facility] [address] [id number] [address] [place] [address], [place] [address] May, [facility] [address] [id number] [address] [place] [address], [place] [address] May, [facility] [address] [id number] [address] [place] [address], [place] [address] Apr, [facility] [address] [id number] [address] [place] [id number] Apr, [facility] [address] [id number] [address] [place] [address], [place] [address] Apr, [facility] [address] [id number] [address] [place] [address], [place] [address] Apr, [facility] [address] [id number] [address] [place] [address], [place] [address] Apr, [facility] [address] [id number] [address] [place] [address], [place] [address] Apr, [facility] [address] [id number] [address] [place] [address], [place] [address] Mar, [facility] [address] [id number] [address] [place] [address], [place] [address] Mar, [facility] [address] [id number] [address] [place] [address], [place] [address] Mar, [facility] [address] [id number] [address] [place] [address], [place] [address] Mar, [facility] [address] [id number] [address] [place] [address], [place] [address] Mar, [facility] [address] [id number] [address] [place] [address], [place] [address] Mar, [facility] [address] [id number] [address] [place] [address], [place] [address] 16 Mar, 2013 [facility] [address] [id number] [address] [place] [address], [place] [address] Mar, [facility] [address] [id number] [address] [place] [address], [place] [address] Mar, [facility] [address] [id number] [address] [place] [address], [place] [address] Mar, [facility] [address] [id number] [address] [place] [address], [place] [address] Feb, [facility] [address] [id number] [address] [place] [address], [place] [address] Feb, [facility] [address] [id number] [address] [place] [address], [place] [address] Feb, [facility] [address] [id number] [address] [place] [address], [place] [address] Feb, [facility] [address] [id number] [address] [place] [address], [place] [address] Feb, [facility] [address] [id number] [address] [place] [address] Feb, [facility] [address] [id number] [address] [place] [address], [place] [address] Feb, [facility] [address] [id number] [address] [place] [address], [place] [address] Feb, [facility] [address] [id number] [address] [place] [address], [place] [address] Feb, [facility] [address] [id number] [address] [place] [address], [place] [address] Feb, [facility] [address] [id number] [address] [place] [address], [place] [address] Jan, [facility] [address] [id number] [address] [place] [address], [place] [address] Jan, [facility] [address] [id number] [address] [place] [id number] Jan, [facility] [address] [id number] [address] [place] [id number] Jan, [facility] [address] [id number] [address] [place] [address], [place] [address] Jan, [facility] [address] [id number] [address] [place] [address], [place] [address] Jan, [facility] [address] [id number] [address] [place] [address], [place] [address] 17 Jan, 2013 [facility] [address] [id number] [address] [place] [address], [place] [address] Jan, [facility] [address] [id number] [address] [place] [address], [place] [address] Jan, [facility] [address] [id number] [address] [place] [address], [place] [address] Dec, [facility] [address] [id number] [address] [place] [address], [place] [address] Dec, [facility] [address] [id number] [address] [place] [address], [place] [address] Dec, [facility] [address] [id number] [address] [place] [address], [place] [address] Dec, [facility] [address] [id number] [address] [place] [address], [place] [address] Nov, [facility] [address] [id number] [address] [place] [address], [place] [address] Nov, [facility] [address] [id number] [address] [place] [address], [place] [address] Nov, [facility] [address] [id number] [address] [place] [address], [place] [address] Nov, [facility] [address] [id number] [address] [place] [address], [place] [address] Nov, [facility] [address] [id number] [address] [place] [address], [place] [address] Nov, [facility] [address] [id number] [address] [place] [address], [place] [address] Oct, [facility] [address] [id number] [address] [place] [address], [place] [address] Oct, [facility] [address] [id number] [address] [place] [address], [place] [address] Oct, [facility] [address] [id number] [address] [place] [address], [place] [address] Oct, [facility] [address] [id number] [address] [place] [address], [place] [address] 27 Sep, 2012 [facility] [address] [id number] [address] [place] [address], [place] [address] Sep, [facility] [address] [id number] [address] [place] [address], [place] [address] 17 Sep, 2012 [facility] [address] [id number] [address] [place] [address], [place] [address] 14 Sep, 2012 [facility] [address] [id number] [address] [place] [address], [place] [address] Sep, [facility] [address] [id number] [address] [place] [address], [place] [address] August, [facility] [address] [id number] [address] [place] [address], [place] [address] August, [facility] [address] [id number] [address] [place] [address], [place] [address] Jul, [facility] [address] [id number] [address] [place] [address], [place] [address] Jul, [facility] [address] [id number] [address] [place] [address], [place] [address] 15 Jul, 2012 [facility] [address] [id number] [address] [place] [address], [place] [address] 09 Jul, 2012 [facility] [address] [id number] [address] [place] [address], [place] [address] 08 Jul, 2012 [facility] [address] [id number] [address] [place] [address], [place] [address] 26 Jun, 2012 [facility] [address] [id number] [address] [place] [address], [place] [address] 20 Jun, 2012 [facility] [address] [id number] [address] [place] [address], [place] [address] 15 Jun, 2012 [facility] [address] [id number] [address] [place] [id number] Jun, [facility] [address] [id number] [address] [place] [address], [place] [address] Jun, [facility] [address] [id number] [address] [place] [address], [place] [address] May, [facility] [address] [id number] [address] [place] [address], [place] [address] May, [facility] [facility] [address] [id number] [address] [place] [address], [place] [address] May, [facility] [address] [id number] [address] [place] [address], [place] [address] May, [facility] [address] [id number] [address] [place] [address], [place] [address] May, [facility] [address] [id number] [address] [place] [address], [place] [address] 14 May, 2012 [facility] [address] [id number] [address] [place] [address], [place] [address] May, [facility] [address] [id number] [address] [place] [address], [place] [address] 08 May, 2012 [facility] [address] [id number] [address] [place] [address], [place] [address] 04 May, 2012 [facility] [address] [id number] [address] [place] [address], [place] [address] Apr, [facility] [address] [id number] [address] [place] [address], [place] [address] Apr, [facility] [address] [id number] [address] [place] [address], [place] [address] Apr, [facility] [address] [id number] [address] [place] [address], [place] [address] Apr, [facility] [address] [id number] [address] [place] [address], [place] [address] Apr, [facility] [address] [id number] [address] [place] [address], [place] [address] Mar, [facility] [address] [id number] [address] [place] [address], [place] [address] Mar, [facility] [address] [id number] [address] [place] [address], [place] [address] Mar, [facility] [address] [id number] [address] [place] [address], [place] [address] Mar, [facility] [address] [id number] [address] [place] [address], [place] [address] Mar, [facility] [address] [id number] [address] [place] [address], [place] [address] Mar, [facility] [address] [id number] [address] [place] [address], [place] [address] Mar, [facility] [address] [id number] [address] [place] [address], [place] [address] Mar, [facility] [address] [id number] [address] [place] [address], [place] [address] Mar, [facility] [address] [id number] [address] [place] [address], [place] [address] Mar, [facility] [address] [id number] [address] [place] [address], [place] [address] Feb, [facility] [address] [id number] [address] [place] [address], [place] [address] Feb, [facility] [address] [id number] [address] [place] [address], [place] [address] Feb, [facility] [address] [id number] [address] [place] [address], [place] [address] Feb, [facility] [address] [id number] [address] [place] [address], [place] [address] Feb, [facility] [address] [id number] [address] [place] [address], [place] [address] Feb, [facility] [address] [id number] [address] [place] [address], [place] [address] Feb, [facility] [address] [id number] [address] [place] [address], [place] [address] Feb, [facility] [address] [id number] [address] [place] [address], [place] [address] 16 Feb, 2012 [facility] [address] [id number] [address] [place] [address], [place] [address] 16 Feb, 2012 [facility] [address] [id number] [address] [place] [address], [place] [address] Feb, [facility] [address] [id number] [address] [place] [address], [place] [address] Feb, [facility] [address] [id number] [address] [place] [address], [place] [address] Feb, [facility] [address] [id number] [address] [place] [address], [place] [address] Feb, [facility] [address] [id number] [address] [place] [address], [place] [address] Feb, [facility] [address] [id number] [address] [place] [address], [place] [address] Feb, [facility] [address] [id number] [address] [place] [address], [place] [address] Feb, [facility] [address] [id number] [address] [place] [address] Feb, [facility] [address] [id number] [address] [place] [address], [place] [address] Jan, [facility] [address] [id number] [address] [place] [address], [place] [address] Jan, [facility] [address] [id number] [address] [place] [address], [place] [address] Jan, [facility] [address] [id number] [address] [place] [address], [place] [address] Jan, [facility] [address] [id number] [address] [place] [address], [place] [address] Jan, [facility] [address] [id number] [address] [place] [address], [place] [address] 24 Jan, 2012 [facility] [address] [id number] [address] [place] [address], [place] [address] Jan, [facility] [address] [id number] [address] [place] [address], [place] [address] Jan, [facility] [address] [id number] [address] [place] [address], [place] [address] Jan, [facility] [address] [id number] [address] [place] [address], [place] [address] Jan, [facility] [address] [id number] [address] [place] [address], [place] [address] 24 Dec, 2011 [facility] [address] [id number] [address] [place] [address], [place] [address] 18 Dec, 2011 [facility] [address] [id number] [address] [place] [address], [place] [address] 04 Dec, 2011 [facility] [address] [id number] [address] [place] [address], [place] [address] 04 Dec, 2011 [facility] [address] [id number] [address] [place] [address], [place] [address] 29 Nov, 2011 [facility] [address] [id number] [address] [place] [address], [place] [address] Nov, [facility] [address] [id number] [address] [place] [address], [place] [address] 24 Nov, 2011 [facility] [address] [id number] [address] [place] [address], [place] [address] Nov, [facility] [address] [id number] [address] [place] [address], [place] [address] Nov, [facility] [address] [id number] [address] [place] [address], [place] [address] Nov, [facility] [address] [id number] [address] [place] [address], [place] [address] Oct, [facility] [address] [id number] [address] [place] [address], [place] [address] Oct, [facility] [address] [id number] [address] [place] [address], [place] [address] Oct, [facility] [address] [id number] [address] [place] [address], [place] [address] Oct, [facility] [address] [id number] [address] [place] [address], [place] [address] Oct, [facility] [address] [id number] [address] [place] [address], [place] [address] Sep, [facility] [address] [id number] [address] [place] [address], [place] [address] Sep, [facility] [address] [id number] [address] [place] [address], [place] [address] Sep, [facility] [address] [id number] [address] [place] [address], [place] [address] Sep, [facility] [address] [id number] [address] [place] [address], [place] [address] Sep, [facility] [address] [id number] [address] [place] [address], [place] [address] August, [facility] [address] [id number] [address] [place] [address], [place] [address] August, [facility] [address] [id number] [address] [place] [address], [place] [address] August, [facility] [address] [id number] [address] [place] [address], [place] [address] August, [facility] [address] [id number] [address] [place] [address], [place] [address] 27 Jul, 2011 [facility] [address] [id number] [address] [place] [address], [place] [address] 24 Jul, 2011 [facility] [address] [id number] [address] [place] [address], [place] [address] 19 Jul, 2011 [facility] [address] [id number] [address] [place] [address], [place] [address] Jul, [facility] [address] [id number] [address] [place] [address], [place] [address] 18 Jul, 2011 [facility] [address] [id number] [address] [place] [address], [place] [address] Jul, [facility] [address] [id number] [address] [place] [address], [place] [address] 11 Jul, 2011 [facility] [address] [id number] [address] [place] [address], [place] [address] 10 Jul, 2011 [facility] [address] [id number] [address] [place] [address], [place] [address] 09 Jul, 2011 [facility] [address] [id number] [address] [place] [address], [place] [address] 07 Jul, 2011 [facility] [address] [id number] [address] [place] [address], [place] [address] 05 Jul, 2011 [facility] [address] [id number] [address] [place] [address], [place] [address] Jul, [facility] [address] [id number] [address] [place] [address], [place] [address] Jul, [facility] [address] [id number] [address] [place] [address], [place] [address] Jul, [facility] [address] [id number] [address] [place] [address], [place] [address] Jun, [facility] [address] [id number] [address] [place] [address], [place] [address] Jun, [facility] [address] [id number] [address] [place] [address], [place] [address] Jun, [facility] [address] [id number] [address] [place] [address], [place] [address] 16 Jun, 2011 [facility] [address] [id number] [address] [place] [address], [place] [address] 27 May, 2011 [facility] [address] [id number] [address] [place] [address], [place] [address] 16 May, 2011 [facility] [address] [id number] [address] [place] [address], [place] [address] May, [facility] [address] [id number] [address] [place] [address], [place] [address] Apr, [facility] [address] [id number] [address] [place] [address], [place] [address] 18 Apr, 2011 [facility] [address] [id number] [address] [place] [address], [place] [address] Apr, [facility] [address] [id number] [address] [place] [address], [place] [address] Apr, [facility] [address] [id number] [address] [place] [address], [place] [address] Apr, [facility] [address] [id number] [address] [place] [address], [place] [address] Mar, [facility] [address] [id number] [address] [place] [address], [place] [address] Mar, [facility] [address] [id number] [address] [place] [address], [place] [address] Mar, [facility] [address] [id number] [address] [place] [address], [place] [address] Mar, [facility] [address] [id number] [address] [place] [address], [place] [address] 16 Mar, 2011 [facility] [address] [id number] [address] [place] [address] Mar, [facility] [address] [id number] [address] [place] [address], [place] [address] Mar, [facility] [address] [id number] [address] [place] [address] Feb, [facility] [address] [id number] [address] [place] [address], [place] [address] Feb, [facility] [address] [id number] [address] [place] [address], [place] [address] Feb, [facility] [address] [id number] [address] [place] [address], [place] [address] Feb, [facility] [address] [id number] [address] [place] [address], [place] [address] 16 Feb, 2011 [facility] [address] [id number] [address] [place] [address] 14 Feb, 2011 [facility] [address] [id number] [address] [place] [address], [place] [address] Feb, [facility] [address] [id number] [address] [place] [id number] 31 Jan, 2011 [facility] [address] [id number] [address] [place] [address] 31 Jan, 2011 [facility] [address] [id number] [address] [place] [id number] 31 Jan, 2011 [facility] [address] [id number] [address] [place] [id number] 18 Jan, 2011 [facility] [address] [id number] [address] [place] [address] 17 Jan, 2011 [facility] [address] [id number] [address] [place] [address] 17 Jan, 2011 [facility] [address] [id number] [address] [place] [address] Jun, [facility] [address] [id number] [address] [place] [address], [place] [address] 30 Mar, 2010 [facility] [address] [id number] [address] [place] [address], [place] [address] 20 Mar, 2010 [facility] [address] [id number] [address] [place] [address], [place] [address] 14 Mar, 2010 [facility] [address] [id number] [address] [place] [address], [place] [address] 14 Mar, 2010 [facility] [address] [id number] [address] [place] [address], [place] [address] 13 Mar, 2010 [facility] [address] [id number] [address] [place] [address], [place] [address] 07 Mar, 2010 [facility] [address] [id number] [address] [place] [address], [place] [address] 02 Mar, 2010 [facility] [address] [id number] [address] [place] [address], [place] [address] Mar, [facility] [address] [id number] [address] [place] [address], [place] [address] 30 Feb, 2010 [facility] [address] [id number] [address] [place] [address], [place] [address] 29 Feb, 2010 [facility] [address] [id number] [address] [place] [address], [place] [address] 17 Feb, 2010 [facility] [address] [id number] [address] [place] [address], [place] [address] 17 Feb, 2010 [facility] [address] [id number] [address] [place] [address], [place] [address] 16 Feb, 2010 [facility] [address] [id number] [address] [place] [address], [place] [address] 08 Feb, 2010 [facility] [address] [id number] [address] [place] [address], [place] [address] 04 Feb, 2010 [facility] [address] [id number] [address] [place], [place] [address] [address] Feb, [facility] [place] [address] [id number] [address] [place] [address] Jan, [facility] [place] [address] [id number] [address] [place] [id number] Jan, [facility] [place] [address] [id number] [address] [place] [address] Jan, [facility] [place] [address] [id number] [address] [place] [address] Jan, [facility] [place] [address] [id number] [address] [place] [id number] 29 Mar, 2009 [facility] [place] [address] [id number] [address] [place] [phone] Mar, [facility] [address] [id number] [address] [place] [id number] Mar, [facility] [address] [id number] [address] [place] [id number] Mar, [facility] [address] [id number] [address] [place] [id number] 14 Mar, 2009 [facility] [address] [id number] [address] [place] [phone] Mar, [facility] [address] [id number] [address] [place] [id number] Feb, [facility] [address] [id number] [address] [place] [phone] Feb, [facility] [address] [id number] [address] [place] [id number] Jan, [facility] [address] [id number] [address] [place] [id number] Sep, [facility] [address] [id number] [address] [place] [address] May, IMMUNIZATIONS No Known Immunizations SOCIAL HISTORY [...] Surgical History Left ear surgery Hospitalization History [facility] [place]- Spontane ous Pneumothorax Hospitalization History [facility]- Colon resection Hospitalization History [facility] - diarrhea/ couldnt urin ate nov 2017 Hospitalization History pain /hip to foot right side 10/16/19 19
--- OUTSIDE RECORDS SUMMARY | 2019-08-28 09:10 | XMS REPORT ---
Author Author Dixon Lundberg Doctor Organization [facility] Address Unknown Phone Unavailable Care Team Providers Care Vice President Network Development Name Role Phone Migration, Doctor Unavailable Unavailable PROBLEMS Type Condition ICD9-CM Code EFZ10-EY Code Onset Dates Condition S tatus SNOMED Code Problem Insomnia G47.00 Active 127175960 Problem Anxiety F41.9 Active 80453669 Problem HTN (hypertension) I10 Active 3 8234553 Problem Hyperlipidemia E78.5 Active 19749 004 Problem Thoracic back pain, unspecif ied back pain laterality, unspecified chronicity M54.6 Active 991500062 Problem Vitamin D deficiency E55.9 Active 49759631 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 26751202 Problem Chronic pain G89.29 Active 0294954 1 Problem Schizophrenia, unspecified type F20.9 Active 42662382 Problem Constipation K59.00 Active 0970942 8 Problem Environmental allergies Z91.09 Active 061199908 Problem Primary insomnia F51.01 Active 397 2004 Problem Chronic kidney disease, stage III (moderate) N18.3 Active 149629898 Problem Vision loss H54.7 Active 77369121 1 ALLERGIES No Information ENCOUNTERS Encounter Location Date Diagnosis [place] [address] [facility] [id number] [address] [place] [phone] Nov, [facility] [address] [facility] [id number] [address] [place] [phone] Oct, Thoracic back pain, unspecif ied back pain laterality, unspecified chronicity M54.6 [facility] [address] [facility] [id number] [address] [place] [phone] Oct, Anxiety F41.9 and Thoracic b ack pain, unspecified back pain laterality, unspecified chronicity M54.6 [place] [address] [facility] [id number] [address] [place] [phone] Oct, Schizophrenia, unspecified t ype F20.9 and Acute kidney injury N17.9 [facility] [address] [id number] [address] [place] [phone] Oct, [facility] [address] [id number] [address] [place] [phone] Oct, [facility] [address] [id number] [address] [place] [phone] Oct, Thoracic back pain, unspecif ied back pain laterality, unspecified chronicity M54.6 [facility] [address] [id number] [address] [place] [phone] Oct, [facility] [address] [id number] [address] [place] [phone] Oct, [facility] [address] [id number] [address] [place] [phone] Sep, Anxiety F41.9 [facility] [address] [id number] [address] [place] [phone] Sep, [facility] [address] [id number] [address] [place] [id number] Sep, Thoracic back pain, unspecif ied back pain laterality, unspecified chronicity M54.6 [facility] [address] [id number] [address] [place] [phone] Sep, [facility] [address] [id number] [address] [place] [phone] Sep, [facility] [address] [id number] [address] [place] [phone] Sep, [facility] [address] [id number] [address] [place] [phone] Sep, [facility] [address] [id number] [address] [place] [phone] Sep, [facility] [address] [id number] [address] [place] [phone] Sep, [facility] [address] [id number] [address] [place] [phone] Sep, Chronic pain G89.29 ; Chroni c kidney disease, stage III (moderate) N18.3 ; Hyperlipidemia E78.5 and Insomnia G47.00 [facility] [address] [id number] [address] [place] [phone] Sep, Thoracic back pain, unspecif ied back pain laterality, unspecified chronicity M54.6 [facility] [address] [id number] [address] [place] [phone] August, Anxiety F41.9 [facility] [address] [id number] [address] [place] [phone] August, Thoracic back pain, unspecif ied back pain laterality, unspecified chronicity M54.6 and Anxiety F41.9 [facility] [address] [id number] [address] [place] [phone] August, 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 [facility] [address] [id number] [address] [place] [id number] August, 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 [facility] [address] [id number] [address] [place] [phone] August, [facility] [address] [id number] [address] [place] [phone] August, [facility] [address] [id number] [address] [place] [phone] August, Thoracic back pain, unspecif ied back pain laterality, unspecified chronicity M54.6 [facility] [address] [id number] [address] [place] [phone] August, [facility] [address] [facility] [id number] [address] [place] [phone] August, Anxiety F41.9 and Thoracic b ack pain, unspecified back pain laterality, unspecified chronicity M54.6 [facility] [address] [id number] [address] [place] [phone] Jul, [facility] [address] [id number] [address] [place] [phone] Jul, Thoracic back pain, unspecif ied back pain laterality, unspecified chronicity M54.6 [facility] [address] [id number] [address] [place] [phone] Jun, Anxiety F41.9 and Thoracic b ack pain, unspecified back pain laterality, unspecified chronicity M54.6 [facility] [address] [id number] [address] [place] [phone] Jun, Anxiety F41.9 and Thoracic b ack pain, unspecified back pain laterality, unspecified chronicity M54.6 [facility] [address] [id number] [address] [place] [phone] Jun, Thoracic back pain, unspecif ied back pain laterality, unspecified chronicity M54.6 [facility] [address] [id number] [address] [place] [phone] Jun, Anxiety F41.9 and Thoracic b ack pain, unspecified back pain laterality, unspecified chronicity M54.6 [facility] [address] [id number] [address] [place] [phone] May, [facility] [address] [id number] [address] [place] [phone] May, [facility] [address] [id number] [address] [place] [phone] May, [facility] [address] [id number] [address] [place] [phone] May, Anxiety F41.9 and Encounter for medication monitoring Z51.81 [facility] [address] [id number] [address] [place] [phone] May, Anxiety F41.9 and Thoracic b ack pain, unspecified back pain laterality, unspecified chronicity M54.6 [facility] [address] [id number] [address] [place] [phone] Apr, Hyperlipidemia 272.4 [facility] [address] [id number] [address] [place] [address] Apr, Chronic pain G89.29 ; Anxiet y F41.9 ; Cervical radiculopathy M54.12 and Vision loss H54.7 [facility] [address] [id number] [address] [place] [phone] Apr, [facility] [address] [id number] [address] [place] [phone] Apr, Anxiety F41.9 and Thoracic b ack pain, unspecified back pain laterality, unspecified chronicity M54.6 [place] [address] [facility] [id number] [address] [place] [phone] 17 Mar, 2018 [place] [address] [facility] [id number] [address] [place] [phone] Mar, Anxiety F41.9 and Thoracic b ack pain, unspecified back pain laterality, unspecified chronicity M54.6 [place] [address] [id number] [address] [place] [phone] 14 Feb, 2018 Anxiety F41.9 and Thoracic b ack pain, unspecified back pain laterality, unspecified chronicity M54.6 [place] [address] [id number] [address] [place] [phone] 07 Feb, 2018 Thoracic back pain, unspecif ied back pain laterality, unspecified chronicity M54.6 [place] [id number] [id number] [address] [place] [phone] Jan, [place] [address] [facility] [id number] [address] [place] [phone] Jan, Anxiety F41.9 and Thoracic b ack pain, unspecified back pain laterality, unspecified chronicity M54.6 [place] [address] [id number] [address] [place] [id number] 19 Dec, 2017 Diarrhea of presumed infecti ous origin R19.7 [facility] [address] [id number] [address] [place] [phone] 19 Dec, 2017 Diarrhea of presumed infecti ous origin R19.7 [facility] [address] [id number] [address] [place] [phone] 18 Dec, 2017 Thoracic back pain, unspecif ied back pain laterality, unspecified chronicity M54.6 [facility] [address] [id number] [address] [place] [phone] 17 Dec, 2017 [place] [address] [id number] [address] [place] [phone] 17 Dec, 2017 Anxiety F41.9 and Thoracic b ack pain, unspecified back pain laterality, unspecified chronicity M54.6 [place] [address] [id number] [address] [place] [phone] 13 Dec, 2017 Diarrhea of presumed infecti ous origin R19.7 [facility] [address] [id number] [address] [place] [phone] Dec, [facility] [address] [id number] [address] [place] [phone] Dec, Anxiety F41.9 and Thoracic b ack pain, unspecified back pain laterality, unspecified chronicity M54.6 [place] [address] [id number] [address] [place] [phone] Dec, Anxiety F41.9 and Thoracic b ack pain, unspecified back pain laterality, unspecified chronicity M54.6 [facility] [address] [place] [id number] Dec, Diarrhea of presumed infectious origin R 19.7 ; Anxiety F41.9 ; Thoracic back pain, unspecified back pain laterality, unspecified chronicity M54.6 and HTN (hypertension) I10 [facility] [address] [facility] [id number] [address] [place] [phone] Dec, Anxiety F41.9 Via [facility] [address] [place] [id number] Dec, Anxiety F41.9 ; Diarrhea of presumed inf ectious origin R19.7 ; Generalized abdominal pain R10.84 and Localized edema R60.0 [place] [id number] [id number] [address] [place] [phone] Nov, Via [facility] [address] [place] [id number] Nov, Anxiety F41.9 ; Urinary retention R33.9 ; Diarrhea of presumed infectious origin R19.7 ; Weakness R53.1 ; Acute kidney failure, unspecified N17.9 ; Chronic kidney disease, stage III (moderate) N18.3 and Thoracic back pain, unspecified back pain laterality, unspecified chronicity M54.6 [place] [address] [id number] [address] [place] [phone] Oct, Thoracic back pain, unspecif ied back pain laterality, unspecified chronicity M54.6 and Anxiety F41.9 [place] [address] [id number] [address] [place] [id number] Sep, Thoracic back pain, unspecif ied back pain laterality, unspecified chronicity M54.6 and Anxiety F41.9 [place] [address] [facility] [id number] [address] [place] [address] Sep, Thoracic back pain, unspecif ied back pain laterality, unspecified chronicity M54.6 ; Anxiety F41.9 and Encounter for medication monitoring Z51.81 [place] [address] [id number] [address] [place] [phone] August, [place] [address] [id number] [address] [place] [phone] August, Thoracic back pain, unspecif ied back pain laterality, unspecified chronicity M54.6 and Anxiety F41.9 [place] [address] [id number] [address] [place] [address] August, Hyperlipidemia E78.5 and HTN (hypertension) I10 [facility] [address] [id number] [address] [place] [phone] August, [facility] [address] [facility] [id number] [address] [place] [phone] August, Medicare welcome exam Z00.00 ; Chronic kidney failure N18.9 ; Anxiety F41.9 ; Chronic pain G89.29 ; Insomnia G47.00 ; Hyperlipidemia E78.5 ; HTN (hypertension) I10 and Thoracic back pain, unspecified back pain laterality, unspecified chronicity M54.6 [facility] [address] [facility] [id number] [address] [place] [phone] Jul, [facility] [address] [id number] [address] [place] [phone] Jul, [facility] [address] [facility] [id number] [address] [place] [phone] Jul, [facility] [address] [id number] [address] [place] [phone] Jul, Anxiety F41.9 [facility] [address] [facility] [id number] [address] [place] [phone] Jul, Thoracic back pain, unspecif ied back pain laterality, unspecified chronicity M54.6 and Anxiety F41.9 [facility] [address] [facility] [id number] [address] [place] [phone] Jun, Thoracic back pain, unspecif ied back pain laterality, unspecified chronicity M54.6 and Anxiety F41.9 [facility] [address] [id number] [address] [place] [phone] May, Thoracic back pain, unspecif ied back pain laterality, unspecified chronicity M54.6 and Anxiety F41.9 [facility] [address] [facility] [id number] [address] [place] [phone] Apr, Thoracic back pain, unspecif ied back pain laterality, unspecified chronicity M54.6 and Anxiety F41.9 [place] [address] [phone] Mar, [place] [address] [place] [id number] [place] [phone] Mar, Thoracic back pain, unspecif ied back pain laterality, unspecified chronicity M54.6 and Anxiety F41.9 [place] [address] [phone] Mar, Thoracic back pain, unspecif ied back pain laterality, unspecified chronicity M54.6 ; HTN (hypertension) I10 ; Hyperlipidemia E78.5 and Anxiety F41.9 [place] [address] [place] [id number] [place] [address] Feb, Thoracic back pain, unspecif ied back pain laterality, unspecified chronicity M54.6 and Anxiety F41.9 [place] [address] [address] Nov, [place] [address] [address] Oct, [place] [address] [place] [id number] [place] [address] Oct, Thoracic back pain, unspecif ied back pain laterality, unspecified chronicity M54.6 [place] [address] [id number] Oct, HTN (hypertension) I10 ; Con stipation K59.00 ; Hyperlipidemia E78.5 ; Thoracic back pain, unspecified back pain laterality, unspecified chronicity M54.6 ; Chronic pain G89.29 ; Anxiety F41.9 ; Chronic kidney failure N18.9 ; Environmental allergies Z91.09 ; Vitamin D deficiency E55.9 and Primary insomnia F51.01 [place] [address] [place] [id number] [address] [place] [phone] Sep, Anxiety F41.9 [facility] [address] [id number] [address] [place] [phone] Sep, [facility] [address] [id number] [address] [place] [id number] August, Anxiety F41.9 [facility] [address] [id number] [address] [place] [address], [place] [address] August, [facility] [address] [id number] [address] [place] [phone] Jul, Anxiety F41.9 [facility] [address] [id number] [address] [place] [address], [place] [address] Jul, [facility] [address] [id number] [address] [place] [address] Jun, Anxiety F41.9 [facility] [address] [id number] [address] [place] [address], [place] [address] Jun, [facility] [address] [id number] [address] [place] [phone] May, [facility] [address] [id number] [address] [place] [address], [place] [address] May, [facility] [address] [id number] [address] [place] [phone] May, [facility] [address] [id number] [address] [place] [phone] Apr, [facility] [address] [id number] [address] [place] [address] Apr, [facility] [address] [id number] [address] [place] [address] Apr, Anxiety F41.9 [facility] [address] [id number] [address] [place] [address] Apr, Anxiety F41.9 [facility] [address] [id number] [address] [place] [phone] Apr, [facility] [address] [facility] [id number] [address] [place] [address] Mar, HTN (hypertension) I10 ; Phillip mor R25.1 ; Hypercholesterolemia E78.0 ; Constipation K59.00 ; Chronic pain G89.29 ; Hyperlipidemia E78.5 ; Insomnia G47.00 ; Anxiety F41.9 and Thoracic back pain, unspecified back pain laterality, unspecified chronicity M54.6 [facility] [address] [id number] [address] [place] [address] Mar, Tremor R25.1 ; HTN (hyperten stas) I10 ; Hypercholesterolemia E78.0 ; Constipation K59.00 ; Chronic pain G89.29 ; Hyperlipidemia E78.5 ; Insomnia G47.00 ; Anxiety F41.9 and Thoracic back pain, unspecified back pain laterality, unspecified chronicity M54.6 [facility] [address] [place] [id number] [address] [place] [phone] Mar, [facility] [address] [facility] [id number] [address] [place] [phone] Mar, [facility] [address] [place] [id number] [place] [phone] Feb, [facility] [address] [place] [id number] [address] [place] [phone] Jan, [facility] [address] [facility] [id number] [address] [place] [phone] Jan, [facility] [address] [id number] [address] [place] [address] Dec, [facility] [address] [place] [id number] [address] [place] [phone] Nov, [facility] [address] [facility] [id number] [address] [place] [phone] Nov, [facility] [address] [place] [id number] [address] [place] [address] Oct, Anxiety F41.9 [facility] [address] [facility] [id number] [address] [place] [address] Oct, Chronic pain G89.29 [facility] [address] [facility] [id number] [address] [place] [id number] Sep, [facility] [address] [facility] [id number] [address] [place] [phone] Sep, [facility] [address] [facility] [id number] [address] [place] [phone] Sep, [facility] [address] [facility] [id number] [address] [place] [address] Sep, [facility] [address] [facility] [id number] [address] [place] [address] Sep, Chronic pain syndrome G89.4 [facility] [address] [place] [id number] [address] [place] [address] Sep, HTN (hypertension) I10 ; Chr onic pain G89.29 ; Hypercholesterolemia E78.0 ; Chronic kidney failure N18.9 ; Constipation, unspecified constipation type K59.00 ; Anxiety F41.9 and Thoracic back pain, unspecified back pain laterality, unspecified chronicity M54.6 [facility] [address] [facility] [id number] [address] [place] [phone] August, Chronic pain syndrome G89.4 [facility] [address] [facility] [id number] [address] [place] [address] August, Chronic pain syndrome G89.4 [facility] [address] [facility] [id number] [address] [place] [phone] Jul, Anxiety disorder, unspecifie d F41.9 and Chronic pain syndrome G89.4 [facility] [address] [facility] [id number] [address] [place] [address] Jul, Insomnia, unspecified G47.00 and Chronic pain syndrome G89.4 [facility] [address] [facility] [id number] [address] [place] [phone] Jul, Allergic rhinitis J30.9 [facility] [address] [facility] [id number] [address] [place] [phone] 15 Jul, 2015 Constipation, unspecified K5 9.00 [facility] [address] [facility] [id number] [address] [place] [phone] Jul, [facility] [address] [facility] [id number] [address] [place] [phone] Jun, [facility] [address] [facility] [id number] [address] [place] [phone] Jun, [facility] [address] [facility] [id number] [address] [place] [phone] Jun, [facility] [address] [facility] [id number] [address] [place] [phone] Jun, [facility] [address] [facility] [id number] [address] [place] [phone] Jun, [facility] [address] [facility] [id number] [address] [place] [phone] Jun, [facility] [address] [place] [id number] [address] [place] [phone] May, [facility] [address] [facility] [id number] [address] [place] [phone] May, [facility] [address] [place] [id number] [address] [place] [phone] May, Anxiety F41.9 ; Insomnia G47 .00 ; Hyperlipidemia E78.5 ; Chronic pain G89.29 ; HTN (hypertension) I10 ; Environmental allergies V15.09 and Constipation 564.00 [facility] [address] [facility] [id number] [address] [place] [phone] Apr, [facility] [address] [id number] [address] [place] [phone] Apr, [facility] [address] [facility] [id number] [address] [place] [phone] Apr, [facility] [address] [facility] [id number] [address] [place] [phone] Mar, [facility] [address] [facility] [id number] [address] [place] [phone] Mar, [facility] [address] [facility] [id number] [address] [place] [phone] Mar, [facility] [address] [facility] [id number] [address] [place] [phone] Feb, [facility] [address] [facility] [id number] [place] [phone] Feb, [facility] [address] [id number] [address] [place] [phone] Feb, [facility] [address] [id number] [address] [place] [phone] Jan, HTN (hypertension) I10 ; Con stipation K59.00 ; Chronic pain G89.29 ; Hyperlipidemia E78.5 ; Hypercholesterolemia E78.0 ; Insomnia G47.00 and Anxiety F41.9 [facility] [address] [facility] [id number] [address] [place] [phone] Jan, [facility] [address] [facility] [id number] [address] [place] [id number] Dec, [facility] [address] [facility] [id number] [address] [place] [phone] Nov, [facility] [address] [facility] [id number] [address] [place] [phone] Oct, Chronic kidney disease, unsp ecified 585.9 ; Chronic pain syndrome 338.4 ; Hyperlipidemia 272.4 and Essential hypertension 401.9 [facility] [address] [facility] [id number] [address] [place] [address] Oct, Chronic kidney disease 585.9 [facility] [address] [facility] [id number] [address] [place] [phone] 15 Oct, 2014 [facility] [address] [facility] [id number] [address] [place] [address] Oct, Chronic kidney disease, unsp ecified 585.9 ; Hypercalcemia 275.42 ; Hyperlipidemia 272.4 ; Essential hypertension 401.9 ; Chronic pain syndrome 338.4 ; Insomnia 780.52 ; Constipation 564.00 ; Environmental allergies V15.09 and Anxiety 300.00 [facility] [address] [facility] [id number] [address] [place] [id number] 15 Oct, 2014 Chronic kidney disease 585.9 [facility] [address] [facility] [id number] [address] [place] [id number] Oct, [facility] [address] [facility] [id number] [address] [place] [phone] Oct, Chronic kidney disease 585.9 and Hyperlipidemia 272.4 [facility] [address] [facility] [id number] [address] [place] [phone] Oct, [facility] [address] [facility] [id number] [address] [place] [phone] Oct, [facility] [address] [facility] [id number] [address] [place] [phone] Sep, [facility] [address] [facility] [id number] [address] [place] [phone] Sep, [facility] [address] [facility] [id number] [address] [place] [phone] Sep, Chronic kidney disease 585.9 and Hyperlipidemia 272.4 [facility] [address] [facility] [id number] [address] [place] [phone] Sep, [facility] [address] [facility] [id number] [address] [place] [phone] August, [facility] [address] [facility] [id number] [address] [place] [phone] August, [facility] [address] [id number] [address] [place] [address], [place] [address] 14 Jul, 2014 [facility] [address] [id number] [address] [place] [address], [place] [address] Jul, [facility] [address] [id number] [address] [place] [address], [place] [address] Jun, [facility] [address] [id number] [address] [place] [address], [place] [address] Jun, [facility] [address] [id number] [address] [place] [address], [place] [address] Jun, [facility] [address] [id number] [address] [place] [address], [place] [address] Jun, [facility] [address] [id number] [address] [place] [address], [place] [address] Jun, [facility] [address] [id number] [address] [place] [address], [place] [address] Jun, [facility] [address] [id number] [address] [place] [address], [place] [address] Jun, [facility] [address] [id number] [address] [place] [address], [place] [address] Jun, [facility] [address] [id number] [address] [place] [address], [place] [address] May, [facility] [address] [id number] [address] [place] [address], [place] [address] May, [facility] [address] [id number] [address] [place] [address], [place] [address] May, [facility] [address] [id number] [address] [place] [address], [place] [address] May, [facility] [address] [id number] [address] [place] [address], [place] [address] Apr, [facility] [address] [id number] [address] [place] [address] [place] [address] Apr, [facility] [address] [id number] [address] [place] [address], [place] [address] Apr, [facility] [address] [id number] [address] [place] [address], [place] [address] Apr, [facility] [address] [id number] [address] [place] [address], [place] [address] Apr, [facility] [address] [id number] [address] [place] [address], [place] [address] Apr, [facility] [address] [id number] [address] [place] [address], [place] [address] Apr, [facility] [address] [id number] [address] [place] [address], [place] [address] Apr, [facility] [address] [id number] [address] [place] [address], [place] [address] Apr, [facility] [address] [id number] [address] [place] [address], [place] [address] Apr, [facility] [address] [id number] [address] [place] [address], [place] [address] Apr, [facility] [address] [id number] [address] [place] [address], [place] [address] Mar, [facility] [address] [id number] [address] [place] [address], [place] [address] Mar, [facility] [address] [id number] [address] [place] [address], [place] [address] Feb, [facility] [address] [id number] [address] [place] [address], [place] [address] Feb, [facility] [address] [id number] [address] [place] [address], [place] [address] Feb, [facility] [address] [id number] [address] [place] [address], [place] [address] Feb, [facility] [address] [id number] [address] [place] [address], [place] [address] Feb, [facility] [address] [id number] [address] [place] [address], [place] [address] Feb, [facility] [address] [id number] [address] [place] [address], [place] [address] Feb, [facility] [address] [id number] [address] [place] [address], [place] [address] Feb, [facility] [address] [id number] [address] [place] [address], [place] [address] Feb, [facility] [address] [id number] [address] [place] [address], [place] [address] Feb, [facility] [address] [id number] [address] [place] [address], [place] [address] Jan, [facility] [address] [id number] [address] [place] [address], [place] [address] Jan, [facility] [address] [id number] [address] [place] [address], [place] [address] Jan, [facility] [address] [id number] [address] [place] [address], [place] [address] Jan, [facility] [address] [id number] [address] [place] [address], [place] [address] Jan, [facility] [address] [id number] [address] [place] [address], [place] [address] 24 Jan, 2014 [facility] [address] [id number] [address] [place] [address], [place] [address] Jan, [facility] [address] [id number] [address] [place] [address], [place] [address] Jan, [facility] [address] [id number] [address] [place] [address], [place] [address] 16 Jan, 2014 [facility] [address] [id number] [address] [place] [address], [place] [address] Jan, [facility] [address] [id number] [address] [place] [address], [place] [address] Jan, [facility] [address] [id number] [address] [place] [address], [place] [address] Dec, [facility] [address] [id number] [address] [place] [address], [place] [address] Dec, 2013 [facility] [address] [id number] [address] [place] [address], [place] [address] Dec, 2013 [facility] [address] [id number] [address] [place] [address], [place] [address] Dec, [facility] [address] [id number] [address] [place] [address], [place] [address] Dec, [facility] [address] [id number] [address] [place] [address], [place] [address] Dec, [facility] [address] [id number] [address] [place] [address], [place] [address] Dec, [facility] [address] [id number] [address] [place] [address], [place] [address] Dec, [facility] [address] [id number] [address] [place] [address], [place] [address] Nov, [facility] [address] [id number] [address] [place] [address], [place] [address] Nov, [facility] [address] [id number] [address] [place] [address], [place] [address] Nov, [facility] [address] [id number] [address] [place] [address], [place] [address] Nov, [facility] [address] [id number] [address] [place] [address], [place] [address] Nov, [facility] [address] [id number] [address] [place] [address], [place] [address] Nov, [facility] [address] [id number] [address] [place] [address], [place] [address] Nov, [facility] [address] [id number] [address] [place] [address], [place] [address] Nov, [facility] [address] [id number] [address] [place] [address], [place] [address] Oct, [facility] [address] [id number] [address] [place] [address], [place] [address] Oct, [facility] [address] [id number] [address] [place] [address], [place] [address] Oct, [facility] [address] [id number] [address] [place] [address], [place] [address] Oct, [facility] [address] [id number] [address] [place] [address], [place] [address] Sep, [facility] [address] [id number] [address] [place] [address], [place] [address] Sep, [facility] [address] [id number] [address] [place] [address], [place] [address] Sep, [facility] [address] [id number] [address] [place] [address], [place] [address] Sep, [facility] [address] [id number] [address] [place] [address], [place] [address] Sep, [facility] [address] [id number] [address] [place] [address], [place] [address] Sep, [facility] [address] [id number] [address] [place] [address], [place] [address] Sep, [facility] [address] [id number] [address] [place] [address], [place] [address] Sep, [facility] [address] [id number] [address] [place] [address], [place] [address] August, [facility] [address] [id number] [address] [place] [address], [place] [address] August, [facility] [address] [id number] [address] [place] [address], [place] [address] August, [facility] [address] [id number] [address] [place] [address], [place] [address] August, [facility] [address] [id number] [address] [place] [address], [place] [address] August, [facility] [address] [id number] [address] [place] [address], [place] [address] August, [facility] [address] [id number] [address] [place] [address], [place] [address] August, [facility] [address] [id number] [address] [place] [address], [place] [address] August, [facility] [address] [id number] [address] [place] [address], [place] [address] August, [facility] [address] [id number] [address] [place] [address], [place] [address] August, [facility] [address] [id number] [address] [place] [address], [place] [address] Jul, [facility] [address] [id number] [address] [place] [address], [place] [address] Jul, [facility] [address] [id number] [address] [place] [address], [place] [address] Jul, [facility] [address] [id number] [address] [place] [address], [place] [address] Jul, [facility] [address] [id number] [address] [place] [address], [place] [address] Jul, [facility] [address] [id number] [address] [place] [address], [place] [address] Jul, [facility] [address] [id number] [address] [place] [address], [place] [address] Jul, [facility] [address] [id number] [address] [place] [id number] Jul, [facility] [address] [id number] [address] [place] [address], [place] [address] Jun, [facility] [address] [id number] [address] [place] [address], [place] [address] Jun, [facility] [address] [id number] [address] [place] [address], [place] [address] Jun, [facility] [address] [id number] [address] [place] [address], [place] [address] Jun, [facility] [address] [id number] [address] [place] [address], [place] [address] Jun, [facility] [address] [id number] [address] [place] [address], [place] [address] Jun, [facility] [address] [id number] [address] [place] [address], [place] [address] May, [facility] [address] [id number] [address] [place] [address], [place] [address] May, [facility] [address] [id number] [address] [place] [address], [place] [address] May, [facility] [address] [id number] [address] [place] [address], [place] [address] May, [facility] [address] [id number] [address] [place] [address], [place] [address] May, [facility] [address] [id number] [address] [place] [address], [place] [address] May, [facility] [address] [id number] [address] [place] [address], [place] [address] May, [facility] [address] [id number] [address] [place] [address], [place] [address] Apr, [facility] [address] [id number] [address] [place] [address] Apr, [facility] [address] [id number] [address] [place] [address], [place] [address] Apr, [facility] [address] [id number] [address] [place] [address], [place] [address] Apr, [facility] [address] [id number] [address] [place] [address], [place] [address] Apr, [facility] [address] [id number] [address] [place] [address], [place] [address] Apr, [facility] [address] [id number] [address] [place] [address], [place] [address] Mar, [facility] [address] [id number] [address] [place] [address], [place] [address] Mar, [facility] [address] [id number] [address] [place] [address], [place] [address] Mar, [facility] [address] [id number] [address] [place] [address], [place] [address] Mar, [facility] [address] [id number] [address] [place] [address], [place] [address] Mar, [facility] [address] [id number] [address] [place] [address], [place] [address] Mar, [facility] [address] [id number] [address] [place] [address], [place] [address] 16 Mar, 2013 [facility] [address] [id number] [address] [place] [address], [place] [address] Mar, [facility] [address] [id number] [address] [place] [address], [place] [address] Mar, [facility] [address] [id number] [address] [place] [address], [place] [address] Mar, [facility] [address] [id number] [address] [place] [address], [place] [address] Feb, [facility] [address] [id number] [address] [place] [address], [place] [address] Feb, [facility] [address] [id number] [address] [place] [address], [place] [address] Feb, [facility] [address] [id number] [address] [place] [address], [place] [address] Feb, [facility] [address] [id number] [address] [place] [address], [place] [address] Feb, [facility] [address] [id number] [address] [place] [id number] Feb, [facility] [address] [id number] [address] [place] [address], [place] [address] Feb, [facility] [address] [id number] [address] [place] [address], [place] [address] Feb, [facility] [address] [id number] [address] [place] [address], [place] [address] Feb, [facility] [address] [id number] [address] [place] [address], [place] [address] Feb, [facility] [address] [id number] [address] [place] [address], [place] [address] Jan, [facility] [address] [id number] [address] [place] [address], [place] [address] Jan, [facility] [address] [id number] [address] [place] [id number] Jan, [facility] [address] [id number] [address] [place] [id number] Jan, [facility] [address] [id number] [address] [place] [address], [place] [address] Jan, [facility] [address] [id number] [address] [place] [address], [place] [address] Jan, [facility] [address] [id number] [address] [place] [address], [place] [id number] 17 Jan, 2013 [facility] [address] [id number] [address] [place] [address], [place] [address] Jan, [facility] [address] [id number] [address] [place] [address], [place] [address] Jan, [facility] [address] [id number] [address] [place] [address], [place] [address] Dec, [facility] [address] [id number] [address] [place] [address], [place] [address] Dec, [facility] [address] [id number] [address] [place] [address], [place] [address] Dec, [facility] [address] [id number] [address] [place] [address], [place] [address] Dec, [facility] [address] [id number] [address] [place] [address], [place] [address] Nov, [facility] [address] [id number] [address] [place] [address], [place] [address] Nov, [facility] [address] [id number] [address] [place] [address], [place] [address] Nov, [facility] [address] [id number] [address] [place] [address], [place] [address] Nov, [facility] [address] [id number] [address] [place] [address], [place] [address] Nov, [facility] [address] [id number] [address] [place] [address], [place] [address] Nov, [facility] [address] [id number] [address] [place] [address], [place] [address] Oct, [facility] [address] [id number] [address] [place] [address], [place] [address] Oct, [facility] [address] [id number] [address] [place] [address], [place] [address] Oct, [facility] [address] [id number] [address] [place] [address], [place] [address] Oct, [facility] [address] [id number] [address] [place] [address], [place] [address] 27 Sep, 2012 [facility] [address] [id number] [address] [place] [address], [place] [address] Sep, [facility] [address] [id number] [address] [place] [address], [place] [address] 17 Sep, 2012 [facility] [address] [id number] [address] [place] [address], [place] [address] 14 Sep, 2012 [facility] [address] [id number] [address] [place] [address], [place] [address] Sep, [facility] [address] [id number] [address] [place] [address], [place] [address] August, [facility] [address] [id number] [address] [place] [address], [place] [address] August, [facility] [address] [id number] [address] [place] [address], [place] [address] Jul, [facility] [address] [id number] [address] [place] [address], [place] [address] Jul, [facility] [address] [id number] [address] [place] [address], [place] [address] 15 Jul, 2012 [facility] [address] [id number] [address] [place] [address], [place] [address] 09 Jul, 2012 [facility] [address] [id number] [address] [place] [address], [place] [address] 08 Jul, 2012 [facility] [address] [id number] [address] [place] [address], [place] [address] 26 Jun, 2012 [facility] [address] [id number] [address] [place] [address], [place] [address] 20 Jun, 2012 [facility] [address] [id number] [address] [place] [address], [place] [address] 15 Jun, 2012 [facility] [address] [id number] [address] [place] [id number] Jun, [facility] [address] [address] [id number] [address] [place] [address], [place] [address] Jun, [facility] [address] [id number] [address] [place] [address], [place] [address] May, [facility] [address] [id number] [address] [place] [address], [place] [address] May, [facility] [address] [id number] [address] [place] [address], [place] [address] May, [facility] [address] [id number] [address] [place] [address], [place] [address] May, [facility] [address] [id number] [address] [place] [address], [place] [address] May, [facility] [address] [id number] [address] [place] [address], [place] [address] 14 May, 2012 [facility] [address] [id number] [address] [place] [address], [place] [address] May, [facility] [address] [id number] [address] [place] [address], [place] [address] 08 May, 2012 [facility] [address] [id number] [address] [place] [address], [place] [address] 04 May, 2012 [facility] [address] [id number] [address] [place] [address], [place] [address] Apr, [facility] [address] [id number] [address] [place] [address], [place] [address] Apr, [facility] [address] [id number] [address] [place] [address], [place] [address] Apr, [facility] [address] [id number] [address] [place] [address], [place] [address] Apr, [facility] [address] [id number] [address] [place] [address], [place] [address] Apr, [facility] [address] [id number] [address] [place] [address], [place] [address] Mar, [facility] [address] [id number] [address] [place] [address], [place] [address] Mar, [facility] [address] [id number] [address] [place] [address], [place] [address] Mar, [facility] [address] [id number] [address] [place] [address], [place] [address] Mar, [facility] [address] [id number] [address] [place] [address], [place] [address] Mar, [facility] [address] [id number] [address] [place] [address], [place] [address] Mar, [facility] [address] [id number] [address] [place] [address], [place] [address] Mar, [facility] [address] [id number] [address] [place] [address], [place] [address] Mar, [facility] [address] [id number] [address] [place] [address], [place] [address] Mar, [facility] [address] [id number] [address] [place] [address], [place] [address] Mar, [facility] [address] [id number] [address] [place] [address], [place] [address] Feb, [facility] [address] [id number] [address] [place] [address], [place] [address] Feb, [facility] [address] [id number] [address] [place] [address], [place] [address] Feb, [facility] [address] [id number] [address] [place] [address], [place] [address] Feb, [facility] [address] [id number] [address] [place] [address], [place] [address] Feb, [facility] [address] [id number] [address] [place] [address], [place] [address] Feb, [facility] [address] [id number] [address] [place] [address], [place] [address] Feb, [facility] [address] [id number] [address] [place] [address], [place] [address] Feb, [facility] [address] [id number] [address] [place] [address], [place] [address] 16 Feb, 2012 [facility] [address] [id number] [address] [place] [address], [place] [address] 16 Feb, 2012 [facility] [address] [id number] [address] [place] [address], [place] [address] Feb, [facility] [address] [id number] [address] [place] [address], [place] [address] Feb, [facility] [address] [id number] [address] [place] [address], [place] [address] Feb, [facility] [address] [id number] [address] [place] [address], [place] [address] Feb, [facility] [address] [id number] [address] [place] [address], [place] [address] Feb, [facility] [address] [id number] [address] [place] [address], [place] [address] Feb, [facility] [address] [id number] [address] [place] [address], [place] [address] Feb, [facility] [address] [id number] [address] [place] [address] Feb, [facility] [address] [id number] [address] [place] [address], [place] [address] Jan, [facility] [address] [id number] [address] [place] [address], [place] [address] Jan, [facility] [address] [id number] [address] [place] [address], [place] [address] Jan, [facility] [address] [id number] [address] [place] [address], [place] [address] Jan, [facility] [address] [id number] [address] [place] [address], [place] [address] Jan, [facility] [address] [id number] [address] [place] [address], [place] [address] 24 Jan, 2012 [facility] [address] [id number] [address] [place] [address], [place] [address] Jan, [facility] [address] [id number] [address] [place] [address], [place] [address] Jan, [facility] [address] [id number] [address] [place] [address], [place] [address] Jan, [facility] [address] [id number] [address] [place] [address], [place] [address] Jan, [facility] [address] [id number] [address] [place] [address], [place] [address] 24 Dec, 2011 [facility] [address] [id number] [address] [place] [address], [place] [address] 18 Dec, 2011 [facility] [address] [id number] [address] [place] [address], [place] [address] 04 Dec, 2011 [facility] [address] [id number] [address] [place] [address], [place] [address] 04 Dec, 2011 [facility] [address] [id number] [address] [place] [address], [place] [address] 29 Nov, 2011 [facility] [address] [id number] [address] [place] [address], [place] [address] Nov, [facility] [address] [id number] [address] [place] [address], [place] [address] 24 Nov, 2011 [facility] [address] [id number] [address] [place] [address], [place] [address] Nov, [facility] [address] [id number] [address] [place] [address], [place] [address] Nov, [facility] [address] [id number] [address] [place] [address], [place] [address] Nov, [facility] [address] [id number] [address] [place] [address], [place] [address] Oct, [facility] [address] [id number] [address] [place] [address], [place] [address] Oct, [facility] [address] [id number] [address] [place] [address], [place] [address] Oct, [facility] [address] [id number] [address] [place] [address], [place] [address] Oct, [facility] [address] [id number] [address] [place] [address], [place] [address] Oct, [facility] [address] [id number] [address] [place] [address], [place] [address] Sep, [facility] [address] [id number] [address] [place] [address], [place] [address] Sep, [facility] [address] [id number] [address] [place] [address], [place] [address] Sep, [facility] [address] [id number] [address] [place] [address], [place] [address] Sep, [facility] [address] [id number] [address] [place] [address], [place] [address] Sep, [facility] [address] [id number] [address] [place] [address], [place] [address] August, [facility] [address] [id number] [address] [place] [address], [place] [address] August, [facility] [address] [id number] [address] [place] [address], [place] [address] August, [facility] [address] [id number] [address] [place] [address], [place] [address] August, [facility] [address] [id number] [address] [place] [address], [place] [address] 27 Jul, 2011 [facility] [address] [id number] [address] [place] [address], [place] [address] 24 Jul, 2011 [facility] [address] [id number] [address] [place] [address], [place] [address] 19 Jul, 2011 [facility] [address] [id number] [address] [place] [address], [place] [address] Jul, [facility] [address] [id number] [address] [place] [address], [place] [address] 18 Jul, 2011 [facility] [address] [id number] [address] [place] [address], [place] [address] Jul, [facility] [address] [id number] [address] [place] [address], [place] [address] 11 Jul, 2011 [facility] [address] [id number] [address] [place] [address], [place] [address] 10 Jul, 2011 [facility] [address] [id number] [address] [place] [address], [place] [address] 09 Jul, 2011 [facility] [address] [id number] [address] [place] [address], [place] [address] 07 Jul, 2011 [facility] [address] [id number] [address] [place] [address], [place] [address] 05 Jul, 2011 [facility] [address] [id number] [address] [place] [address], [place] [address] Jul, [facility] [address] [id number] [address] [place] [address], [place] [address] Jul, [facility] [address] [id number] [address] [place] [address], [place] [address] Jul, [facility] [address] [id number] [address] [place] [address], [place] [address] Jun, [facility] [address] [id number] [address] [place] [address], [place] [address] Jun, [facility] [address] [id number] [address] [place] [address], [place] [address] Jun, [facility] [address] [id number] [address] [place] [address], [place] [address] 16 Jun, 2011 [facility] [address] [id number] [address] [place] [address], [place] [address] 27 May, 2011 [facility] [address] [id number] [address] [place] [address], [place] [address] 16 May, 2011 [facility] [address] [id number] [address] [place] [address], [place] [address] May, [facility] [address] [id number] [address] [place] [address], [place] [address] Apr, [facility] [address] [id number] [address] [place] [address], [place] [address] 18 Apr, 2011 [facility] [address] [id number] [address] [place] [address], [place] [address] Apr, [facility] [address] [id number] [address] [place] [address], [place] [address] Apr, [facility] [address] [id number] [address] [place] [address], [place] [address] Apr, [facility] [address] [id number] [address] [place] [address], [place] [address] Mar, [facility] [address] [id number] [address] [place] [address], [place] [address] Mar, [facility] [address] [id number] [address] [place] [address], [place] [address] Mar, [facility] [address] [id number] [address] [place] [address], [place] [address] Mar, [facility] [address] [id number] [address] [place] [address], [place] [address] 16 Mar, 2011 [facility] [address] [id number] [address] [place] [id number] Mar, [facility] [address] [id number] [address] [place] [address], [place] [address] Mar, [facility] [address] [id number] [address] [place] [id number] Feb, [facility] [address] [id number] [address] [place] [address], [place] [address] Feb, [facility] [address] [id number] [address] [place] [address], [place] [address] Feb, [facility] [address] [id number] [address] [place] [address], [place] [address] Feb, [facility] [address] [id number] [address] [place] [address], [place] [address] 16 Feb, 2011 [facility] [address] [id number] [address] [place] [id number] 14 Feb, 2011 [facility] [address] [id number] [address] [place] [address], [place] [address] Feb, [facility] [address] [id number] [address] [place] [id number] 31 Jan, 2011 [facility] [address] [id number] [address] [place] [address] 31 Jan, 2011 [facility] [address] [id number] [address] [place] [id number] 31 Jan, 2011 [facility] [address] [id number] [address] [place] [address] 18 Jan, 2011 [facility] [address] [id number] [address] [place] [address] 17 Jan, 2011 [facility] [address] [id number] [address] [place] [id number] 17 Jan, 2011 [facility] [address] [id number] [address] [place] [id number] Jun, [facility] [address] [id number] [address] [place] [address], [place] [address] 30 Mar, 2010 [facility] [address] [id number] [address] [place] [address], [place] [address] 20 Mar, 2010 [facility] [address] [id number] [address] [place] [address], [place] [address] 14 Mar, 2010 [facility] [address] [id number] [address] [place] [address], [place] [address] 14 Mar, 2010 [facility] [address] [id number] [address] [place] [address], [place] [address] 13 Mar, 2010 [facility] [address] [id number] [address] [place] [address], [place] [address] 07 Mar, 2010 [facility] [address] [id number] [address] [place] [address], [place] [address] 02 Mar, 2010 [facility] [address] [id number] [address] [place] [address], [place] [address] Mar, [facility] [address] [id number] [address] [place] [address], [place] [address] 30 Feb, 2010 [facility] [address] [id number] [address] [place] [address], [place] [address] 29 Feb, 2010 [facility] [address] [id number] [address] [place] [address], [place] [address] 17 Feb, 2010 [facility] [address] [id number] [address] [place] [address], [place] [address] 17 Feb, 2010 [facility] [address] [id number] [address] [place] [address], [place] [address] 16 Feb, 2010 [facility] [address] [id number] [address] [place] [address], [place] [address] 08 Feb, 2010 [facility] [address] [id number] [address] [place] [address], [place] [address] 04 Feb, 2010 [facility] [address] [id number] [address] [place] [address] [address] Feb, [facility] [address] [id number] [address] [place] [id number] Jan, [facility] [address] [id number] [address] [place] [id number] Jan, [facility] [address] [id number] [address] [place] [id number] Jan, [facility] [address] [id number] [address] [place] [phone] Jan, [facility] [address] [id number] [address] [place] [id number] 29 Mar, 2009 [facility] [place] [address] [id number] [address] [place] [phone] Mar, [facility] [address] [id number] [address] [place] [id number] Mar, [facility] [address] [id number] [address] [place] [id number] Mar, [facility] [address] [id number] [address] [place] [id number] 14 Mar, 2009 [facility] [address] [id number] [address] [place] [id number] Mar, [facility] [address] [id number] [address] [place] [phone] Feb, [facility] [address] [id number] [address] [place] [phone] Feb, [facility] [address] [id number] [address] [place] [phone] Jan, [facility] [address] [id number] [address] [place] [phone] Sep, [facility] [address] [id number] [address] [place] [phone] May, IMMUNIZATIONS No Known Immunizations SOCIAL HISTORY [...] Surgical History Left ear surgery Hospitalization History [facility] in [place]- Spontane ous Pneumothorax Hospitalization History [facility]- Colon resection Hospitalization [facility] - diarrhea/ couldnt urin ate nov 2017 Hospitalization History pain /hip to foot right side 10/16/19 19
--- OUTSIDE RECORDS SUMMARY | 2019-08-28 09:10 | XMS REPORT ---
Author Author Dixon Lundberg Doctor Organization 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 Name Role Phone Migration, Doctor Unavailable Unavailable PROBLEMS Type Condition ICD9-CM Code OTL53-DB Code Onset Dates Condition S tatus SNOMED Code Problem Insomnia G47.00 Active 150202003 Problem Anxiety F41.9 Active 40073218 Problem HTN (hypertension) I10 Active 3 3269908 Problem Hyperlipidemia E78.5 Active 80201 004 Problem Thoracic back pain, unspecif ied back pain laterality, unspecified chronicity M54.6 Active 483823675 Problem Vitamin D deficiency E55.9 Active 29267869 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 20191242 Problem Chronic pain G89.29 Active 0309128 1 Problem Schizophrenia, unspecified type F20.9 Active 27541752 Problem Constipation K59.00 Active 6772402 8 Problem Environmental allergies Z91.09 Active 524758176 Problem Primary insomnia F51.01 Active 397 2004 Problem Chronic kidney disease, stage III (moderate) N18.3 Active 451854523 Problem Vision loss H54.7 Active 89632476 1 ALLERGIES No Information ENCOUNTERS Encounter Location Date Diagnosis [place] [address] [facility] [id number] [address] [place] [phone] Nov, [facility] [address] [facility] [id number] [address] [place] [phone] Oct, Thoracic back pain, unspecif ied back pain laterality, unspecified chronicity M54.6 [facility] [address] [facility] [id number] [address] [place] [phone] Oct, Anxiety F41.9 and Thoracic b ack pain, unspecified back pain laterality, unspecified chronicity M54.6 [place] [address] [facility] [id number] [address] [place] [phone] Oct, Schizophrenia, unspecified t ype F20.9 and Acute kidney injury N17.9 [facility] [address] [id number] [address] [place] [phone] Oct, [facility] [address] [id number] [address] [place] [phone] Oct, [facility] [address] [id number] [address] [place] [phone] Oct, Thoracic back pain, unspecif ied back pain laterality, unspecified chronicity M54.6 [facility] [address] [id number] [address] [place] [phone] Oct, [facility] [address] [id number] [address] [place] [phone] Oct, [facility] [address] [id number] [address] [place] [phone] Sep, Anxiety F41.9 [facility] [address] [id number] [address] [place] [address] Sep, [facility] [address] [id number] [address] [place] [id number] Sep, Thoracic back pain, unspecif ied back pain laterality, unspecified chronicity M54.6 [facility] [address] [id number] [address] [place] [id number] Sep, [facility] [address] [id number] [address] [place] [phone] Sep, [facility] [address] [id number] [address] [place] [id number] Sep, [facility] [address] [id number] [address] [place] [phone] Sep, [facility] [address] [id number] [address] [place] [address] Sep, [facility] [address] [id number] [address] [place] [id number] Sep, [facility] [address] [id number] [address] [place] [id number] Sep, Chronic pain G89.29 ; Chroni c kidney disease, stage III (moderate) N18.3 ; Hyperlipidemia E78.5 and Insomnia G47.00 [facility] [address] [id number] [address] [place] [id number] Sep, Thoracic back pain, unspecif ied back pain laterality, unspecified chronicity M54.6 [facility] [address] [id number] [address] [place] [address] August, Anxiety F41.9 [facility] [address] [id number] [address] [place] [phone] August, Thoracic back pain, unspecif ied back pain laterality, unspecified chronicity M54.6 and Anxiety F41.9 [facility] [address] [id number] [address] [place] [phone] August, 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 [facility] [address] [id number] [address] [place] [address] August, 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 [facility] [address] [id number] [address] [place] [address] August, [facility] [address] [id number] [address] [place] [id number] August, [facility] [address] [id number] [address] [place] [id number] August, Thoracic back pain, unspecif ied back pain laterality, unspecified chronicity M54.6 [facility] [address] [id number] [address] [place] [phone] August, [facility] [address] [facility] [id number] [address] [place] [phone] August, Anxiety F41.9 and Thoracic b ack pain, unspecified back pain laterality, unspecified chronicity M54.6 [facility] [address] [id number] [address] [place] [id number] Jul, [facility] [address] [id number] [address] [place] [address] Jul, Thoracic back pain, unspecif ied back pain laterality, unspecified chronicity M54.6 [facility] [address] [id number] [address] [place] [phone] Jun, Anxiety F41.9 and Thoracic b ack pain, unspecified back pain laterality, unspecified chronicity M54.6 [facility] [address] [id number] [address] [place] [address] Jun, Anxiety F41.9 and Thoracic b ack pain, unspecified back pain laterality, unspecified chronicity M54.6 [facility] [address] [id number] [address] [place] [address] Jun, Thoracic back pain, unspecif ied back pain laterality, unspecified chronicity M54.6 [facility] [address] [id number] [address] [place] [id number] Jun, Anxiety F41.9 and Thoracic b ack pain, unspecified back pain laterality, unspecified chronicity M54.6 [facility] [address] [id number] [address] [place] [address] May, [facility] [address] [id number] [address] [place] [address] May, [facility] [address] [id number] [address] [place] [id number] May, [facility] [address] [id number] [address] [place] [phone] May, Anxiety F41.9 and Encounter for medication monitoring Z51.81 [facility] [address] [id number] [address] [place] [address] May, Anxiety F41.9 and Thoracic b ack pain, unspecified back pain laterality, unspecified chronicity M54.6 [facility] [address] [id number] [address] [place] [address] Apr, Hyperlipidemia 272.4 [facility] [address] [id number] [address] [place] [address] Apr, Chronic pain G89.29 ; Anxiet y F41.9 ; Cervical radiculopathy M54.12 and Vision loss H54.7 [facility] [address] [id number] [address] [place] [address] Apr, [facility] [address] [id number] [address] [place] [address] Apr, Anxiety F41.9 and Thoracic b ack pain, unspecified back pain laterality, unspecified chronicity M54.6 [place] [address] [facility] [id number] [address] [place] [phone] 17 Mar, 2018 [place] [address] [facility] [id number] [address] [place] [phone] Mar, Anxiety F41.9 and Thoracic b ack pain, unspecified back pain laterality, unspecified chronicity M54.6 [place] [address] [id number] [address] [place] [id number] 14 Feb, 2018 Anxiety F41.9 and Thoracic b ack pain, unspecified back pain laterality, unspecified chronicity M54.6 [place] [address] [id number] [address] [place] [id number] 07 Feb, 2018 Thoracic back pain, unspecif ied back pain laterality, unspecified chronicity M54.6 [place] [address] [id number] [address] [place] [phone] Jan, [place] [address] [facility] [id number] [address] [place] [address] Jan, Anxiety F41.9 and Thoracic b ack pain, unspecified back pain laterality, unspecified chronicity M54.6 [place] [address] [id number] [address] [place] [id number] 19 Dec, 2017 Diarrhea of presumed infecti ous origin R19.7 [facility] [address] [id number] [address] [place] [id number] 19 Dec, 2017 Diarrhea of presumed infecti ous origin R19.7 [facility] [address] [id number] [address] [place] [phone] 18 Dec, 2017 Thoracic back pain, unspecif ied back pain laterality, unspecified chronicity M54.6 [facility] [address] [id number] [address] [place] [phone] 17 Dec, 2017 [place] [address] [id number] [address] [place] [id number] 17 Dec, 2017 Anxiety F41.9 and Thoracic b ack pain, unspecified back pain laterality, unspecified chronicity M54.6 [place] [address] [id number] [address] [place] [id number] 13 Dec, 2017 Diarrhea of presumed infecti ous origin R19.7 [facility] [address] [id number] [address] [place] [address] Dec, [facility] [address] [id number] [address] [place] [id number] Dec, Anxiety F41.9 and Thoracic b ack pain, unspecified back pain laterality, unspecified chronicity M54.6 [place] [address] [id number] [address] [place] [phone] Dec, Anxiety F41.9 and Thoracic b ack pain, unspecified back pain laterality, unspecified chronicity M54.6 [facility] [address] [place] [id number] Dec, Diarrhea of presumed infectious origin R 19.7 ; Anxiety F41.9 ; Thoracic back pain, unspecified back pain laterality, unspecified chronicity M54.6 and HTN (hypertension) I10 [facility] [address] [facility] [id number] [address] [place] [address] Dec, Anxiety F41.9 [facility] [address] [place] [id number] Dec, Anxiety F41.9 ; Diarrhea of presumed inf ectious origin R19.7 ; Generalized abdominal pain R10.84 and Localized edema R60.0 [place] [address] [id number] [address] [place] [address] Nov, [facility] [address] [place] [id number] Nov, Anxiety F41.9 ; Urinary retention R33.9 ; Diarrhea of presumed infectious origin R19.7 ; Weakness R53.1 ; Acute kidney failure, unspecified N17.9 ; Chronic kidney disease, stage III (moderate) N18.3 and Thoracic back pain, unspecified back pain laterality, unspecified chronicity M54.6 [place] [address] [id number] [address] [place] [address] Oct, Thoracic back pain, unspecif ied back pain laterality, unspecified chronicity M54.6 and Anxiety F41.9 [place] [address] [id number] [address] [place] [address] Sep, Thoracic back pain, unspecif ied back pain laterality, unspecified chronicity M54.6 and Anxiety F41.9 [place] [address] [facility] [id number] [address] [place] [address] Sep, Thoracic back pain, unspecif ied back pain laterality, unspecified chronicity M54.6 ; Anxiety F41.9 and Encounter for medication monitoring Z51.81 [place] [address] [id number] [address] [place] [address] August, [place] [address] [id number] [address] [place] [phone] August, Thoracic back pain, unspecif ied back pain laterality, unspecified chronicity M54.6 and Anxiety F41.9 [place] [address] [id number] [address] [place] [phone] August, Hyperlipidemia E78.5 and HTN (hypertension) I10 [facility] [address] [id number] [address] [place] [address] August, [facility] [address] [facility] [id number] [address] [place] [address] August, Medicare welcome exam Z00.00 ; Chronic kidney failure N18.9 ; Anxiety F41.9 ; Chronic pain G89.29 ; Insomnia G47.00 ; Hyperlipidemia E78.5 ; HTN (hypertension) I10 and Thoracic back pain, unspecified back pain laterality, unspecified chronicity M54.6 [facility] [address] [facility] [id number] [address] [place] [address] Jul, [facility] [address] [id number] [address] [place] [phone] Jul, [facility] [address] [facility] [id number] [address] [place] [id number] Jul, [facility] [address] [id number] [address] [place] [phone] Jul, Anxiety F41.9 [facility] [address] [facility] [id number] [address] [place] [address] Jul, Thoracic back pain, unspecif ied back pain laterality, unspecified chronicity M54.6 and Anxiety F41.9 [facility] [address] [facility] [id number] [address] [place] [address] Jun, Thoracic back pain, unspecif ied back pain laterality, unspecified chronicity M54.6 and Anxiety F41.9 [facility] [address] [id number] [address] [place] [address] May, Thoracic back pain, unspecif ied back pain laterality, unspecified chronicity M54.6 and Anxiety F41.9 [facility] [address] [facility] [id number] [address] [place] [address] Apr, Thoracic back pain, unspecif ied back pain laterality, unspecified chronicity M54.6 and Anxiety F41.9 [place] [address] [address] Mar, [place] [address] [place] [id number] [place] [address] Mar, Thoracic back pain, unspecif ied back pain laterality, unspecified chronicity M54.6 and Anxiety F41.9 [place] [address] [address] Mar, Thoracic back pain, unspecif ied back pain laterality, unspecified chronicity M54.6 ; HTN (hypertension) I10 ; Hyperlipidemia E78.5 and Anxiety F41.9 [place] [address] [place] [id number] [place] [address] Feb, Thoracic back pain, unspecif ied back pain laterality, unspecified chronicity M54.6 and Anxiety F41.9 [place] [address] [address] Nov, [place] [address] [address] Oct, [place] [address] [place] [id number] [place] [address] Oct, Thoracic back pain, unspecif ied back pain laterality, unspecified chronicity M54.6 [place] [address] [address] Oct, HTN (hypertension) I10 ; Con stipation K59.00 ; Hyperlipidemia E78.5 ; Thoracic back pain, unspecified back pain laterality, unspecified chronicity M54.6 ; Chronic pain G89.29 ; Anxiety F41.9 ; Chronic kidney failure N18.9 ; Environmental allergies Z91.09 ; Vitamin D deficiency E55.9 and Primary insomnia F51.01 [place] [address] [place] [id number] [address] [place] [address] Sep, Anxiety F41.9 [facility] [address] [id number] [address] [place] [address] Sep, [facility] [address] [id number] [address] [place] [address] August, Anxiety F41.9 [facility] [address] [id number] [address] [place] [address], [place] [address] August, [facility] [address] [id number] [address] [place] [address] Jul, Anxiety F41.9 [facility] [address] [id number] [address] [place] [address], [place] [address] Jul, [facility] [address] [id number] [address] [place] [address] Jun, Anxiety F41.9 [facility] [address] [id number] [address] [place] [address], [place] [address] Jun, [facility] [address] [id number] [address] [place] [address] May, [facility] [address] [id number] [address] [place] [address], [place] [address] May, [facility] [address] [id number] [address] [place] [address] May, [facility] [address] [id number] [address] [place] [address] Apr, [facility] [address] [id number] [address] [place] [address] Apr, [facility] [address] [id number] [address] [place] [address] Apr, Anxiety F41.9 [facility] [address] [id number] [address] [place] [address] Apr, Anxiety F41.9 [facility] [address] [id number] [address] [place] [address] Apr, [facility] [address] [facility] [id number] [address] [place] [address] Mar, HTN (hypertension) I10 ; Phillip mor R25.1 ; Hypercholesterolemia E78.0 ; Constipation K59.00 ; Chronic pain G89.29 ; Hyperlipidemia E78.5 ; Insomnia G47.00 ; Anxiety F41.9 and Thoracic back pain, unspecified back pain laterality, unspecified chronicity M54.6 [facility] [address] [id number] [address] [place] [address] Mar, Tremor R25.1 ; HTN (hyperten stas) I10 ; Hypercholesterolemia E78.0 ; Constipation K59.00 ; Chronic pain G89.29 ; Hyperlipidemia E78.5 ; Insomnia G47.00 ; Anxiety F41.9 and Thoracic back pain, unspecified back pain laterality, unspecified chronicity M54.6 [facility] [address] [place] [id number] [address] [place] [address] Mar, [facility] [address] [facility] [id number] [address] [place] [address] Mar, [facility] [address] [place] [id number] [place] [address] Feb, [facility] [address] [place] [id number] [address] [place] [address] Jan, [facility] [address] [facility] [id number] [address] [place] [address] Jan, [facility] [address] [id number] [address] [place] [address] Dec, [facility] [address] [place] [id number] [address] [place] [address] Nov, [facility] [address] [facility] [id number] [address] [place] [address] Nov, [facility] [address] [place] [id number] [address] [place] [id number] Oct, Anxiety F41.9 [facility] [address] [facility] [id number] [address] [place] [address] Oct, Chronic pain G89.29 [facility] [address] [facility] [id number] [address] [place] [id number] Sep, [facility] [address] [facility] [id number] [address] [place] [address] Sep, [facility] [address] [facility] [id number] [address] [place] [address] Sep, [facility] [address] [facility] [id number] [address] [place] [address] Sep, [facility] [address] [facility] [id number] [address] [place] [address] Sep, Chronic pain syndrome G89.4 [facility] [address] [place] [id number] [address] [place] [address] Sep, HTN (hypertension) I10 ; Chr onic pain G89.29 ; Hypercholesterolemia E78.0 ; Chronic kidney failure N18.9 ; Constipation, unspecified constipation type K59.00 ; Anxiety F41.9 and Thoracic back pain, unspecified back pain laterality, unspecified chronicity M54.6 [facility] [address] [facility] [id number] [address] [place] [address] August, Chronic pain syndrome G89.4 [facility] [address] [facility] [id number] [address] [place] [address] August, Chronic pain syndrome G89.4 [facility] [address] [facility] [id number] [address] [place] [address] Jul, Anxiety disorder, unspecifie d F41.9 and Chronic pain syndrome G89.4 [facility] [address] [facility] [id number] [address] [place] [address] Jul, Insomnia, unspecified G47.00 and Chronic pain syndrome G89.4 [facility] [address] [facility] [id number] [address] [place] [id number] Jul, Allergic rhinitis J30.9 [facility] [address] [facility] [id number] [address] [place] [phone] 15 Jul, 2015 Constipation, unspecified K5 9.00 [facility] [address] [facility] [id number] [address] [place] [phone] Jul, [facility] [address] [facility] [id number] [address] [place] [phone] Jun, [facility] [address] [facility] [id number] [address] [place] [phone] Jun, [facility] [address] [facility] [id number] [address] [place] [phone] Jun, [facility] [address] [facility] [id number] [address] [place] [phone] Jun, [facility] [address] [facility] [id number] [address] [place] [phone] Jun, [facility] [address] [facility] [id number] [address] [place] [phone] Jun, [facility] [address] [place] [id number] [address] [place] [phone] May, [facility] [address] [facility] [id number] [address] [place] [phone] May, [facility] [address] [place] [id number] [address] [place] [phone] May, Anxiety F41.9 ; Insomnia G47 .00 ; Hyperlipidemia E78.5 ; Chronic pain G89.29 ; HTN (hypertension) I10 ; Environmental allergies V15.09 and Constipation 564.00 [facility] [address] [facility] [id number] [address] [place] [phone] Apr, [facility] [address] [place] [id number] [address] [place] [phone] Apr, [facility] [address] [facility] [id number] [address] [place] [address] [id number] Apr, [facility] [address] [facility] [id number] [address] [place] [phone] Mar, [facility] [address] [facility] [id number] [address] [place] [phone] Mar, [facility] [address] [facility] [id number] [address] [place] [id number] Mar, [facility] [address] [facility] [id number] [address] [place] [phone] Feb, [facility] [address] [facility] [id number] [place] [phone] Feb, [facility] [address] [place] [id number] [address] [place] [phone] Feb, [facility] [address] [place] [id number] [address] [place] [phone] Jan, HTN (hypertension) I10 ; Con stipation K59.00 ; Chronic pain G89.29 ; Hyperlipidemia E78.5 ; Hypercholesterolemia E78.0 ; Insomnia G47.00 and Anxiety F41.9 [facility] [address] [facility] [id number] [address] [place] [phone] Jan, [facility] [address] [facility] [id number] [address] [place] [phone] Dec, [facility] [address] [facility] [id number] [address] [place] [phone] Nov, [facility] [address] [facility] [id number] [address] [place] [phone] Oct, Chronic kidney disease, unsp ecified 585.9 ; Chronic pain syndrome 338.4 ; Hyperlipidemia 272.4 and Essential hypertension 401.9 [facility] [address] [facility] [id number] [address] [place] [phone] Oct, Chronic kidney disease 585.9 [facility] [address] [facility] [id number] [address] [place] [phone] 15 Oct, 2014 [facility] [address] [facility] [id number] [address] [place] [phone] Oct, Chronic kidney disease, unsp ecified 585.9 ; Hypercalcemia 275.42 ; Hyperlipidemia 272.4 ; Essential hypertension 401.9 ; Chronic pain syndrome 338.4 ; Insomnia 780.52 ; Constipation 564.00 ; Environmental allergies V15.09 and Anxiety 300.00 [facility] [address] [facility] [id number] [address] [place] [phone] 15 Oct, 2014 Chronic kidney disease 585.9 [facility] [address] [facility] [id number] [address] [place] [phone] Oct, [facility] [address] [facility] [id number] [address] [place] [phone] Oct, Chronic kidney disease 585.9 and Hyperlipidemia 272.4 [facility] [address] [facility] [id number] [address] [place] [phone] Oct, [facility] [address] [facility] [id number] [address] [place] [phone] Oct, [facility] [address] [facility] [id number] [address] [place] [phone] Sep, [facility] [address] [facility] [id number] [address] [place] [phone] Sep, [facility] [address] [facility] [id number] [address] [place] [phone] Sep, Chronic kidney disease 585.9 and Hyperlipidemia 272.4 [facility] [address] [facility] [id number] [address] [place] [phone] Sep, [facility] [address] [facility] [id number] [address] [place] [phone] August, [facility] [address] [facility] [id number] [address] [place] [phone] August, [facility] [address] [id number] [address] [place] [address], [place] [id number] 14 Jul, 2014 [facility] [address] [id number] [address] [place] [address], [place] [address] Jul, [facility] [address] [id number] [address] [place] [address], [place] [address] Jun, [facility] [address] [id number] [address] [place] [address], [place] [address] Jun, [facility] [address] [id number] [address] [place] [address], [place] [address] Jun, [facility] [address] [id number] [address] [place] [address], [place] [address] Jun, [facility] [address] [id number] [address] [place] [address], [place] [address] Jun, [facility] [address] [id number] [address] [place] [address], [place] [address] Jun, [facility] [address] [id number] [address] [place] [address], [place] [address] Jun, [facility] [address] [id number] [address] [place] [address], [place] [address] Jun, [facility] [address] [id number] [address] [place] [address], [place] [address] May, [facility] [address] [id number] [address] [place] [address], [place] [address] May, [facility] [address] [id number] [address] [place] [address], [place] [address] May, [facility] [address] [id number] [address] [place] [address], [place] [address] May, [facility] [address] [id number] [address] [place] [address], [place] [address] Apr, [facility] [address] [id number] [address] [place] [address] [place] [address] Apr, [facility] [address] [id number] [address] [place] [address], [place] [address] Apr, [facility] [address] [id number] [address] [place] [address], [place] [address] Apr, [facility] [address] [id number] [address] [place] [address], [place] [id number] Apr, [facility] [address] [id number] [address] [place] [address], [place] [address] Apr, [facility] [address] [id number] [address] [place] [address], [place] [address] Apr, [facility] [address] [id number] [address] [place] [address], [place] [address] Apr, [facility] [address] [id number] [address] [place] [address], [place] [address] Apr, [facility] [address] [id number] [address] [place] [address], [place] [address] Apr, [facility] [address] [id number] [address] [place] [address], [place] [address] Apr, [facility] [address] [id number] [address] [place] [address], [place] [address] Mar, [facility] [address] [id number] [address] [place] [address], [place] [address] Mar, [facility] [address] [id number] [address] [place] [address], [place] [address] Feb, [facility] [address] [id number] [address] [place] [address], [place] [address] Feb, [facility] [address] [id number] [address] [place] [address], [place] [address] Feb, [facility] [address] [id number] [address] [place] [address], [place] [address] Feb, [facility] [address] [id number] [address] [place] [address], [place] [address] Feb, [facility] [address] [id number] [address] [place] [address], [place] [address] Feb, [facility] [address] [id number] [address] [place] [address], [place] [address] Feb, [facility] [address] [id number] [address] [place] [address], [place] [address] Feb, [facility] [address] [id number] [address] [place] [address], [place] [address] Feb, [facility] [address] [id number] [address] [place] [address], [place] [address] Feb, [facility] [address] [id number] [address] [place] [address], [place] [address] Jan, [facility] [address] [id number] [address] [place] [address], [place] [address] Jan, [facility] [address] [id number] [address] [place] [address], [place] [address] Jan, [facility] [address] [id number] [address] [place] [address], [place] [address] Jan, [facility] [address] [id number] [address] [place] [address], [place] [address] Jan, [facility] [address] [id number] [address] [place] [address], [place] [address] 24 Jan, 2014 [facility] [address] [id number] [address] [place] [address], [place] [address] Jan, [facility] [address] [id number] [address] [place] [address], [place] [address] Jan, [facility] [address] [id number] [address] [place] [address], [place] [address] 16 Jan, 2014 [facility] [address] [id number] [address] [place] [address], [place] [address] Jan, [facility] [address] [id number] [address] [place] [address], [place] [address] Jan, [facility] [address] [id number] [address] [place] [address], [place] [address] Dec, [facility] [address] [id number] [address] [place] [address], [place] [address] Dec, 2013 [facility] [address] [id number] [address] [place] [address], [place] [address] Dec, 2013 [facility] [address] [id number] [address] [place] [address], [place] [address] Dec, [facility] [address] [id number] [address] [place] [address], [place] [address] Dec, [facility] [address] [id number] [address] [place] [address], [place] [address] Dec, [facility] [address] [id number] [address] [place] [address], [place] [address] Dec, [facility] [address] [id number] [address] [place] [address], [place] [address] Dec, [facility] [address] [id number] [address] [place] [address], [place] [address] Nov, [facility] [address] [id number] [address] [place] [address], [place] [address] Nov, [facility] [address] [id number] [address] [place] [address], [place] [address] Nov, [facility] [address] [id number] [address] [place] [address], [place] [address] Nov, [facility] [address] [id number] [address] [place] [address], [place] [address] Nov, [facility] [address] [id number] [address] [place] [address], [place] [address] Nov, [facility] [address] [id number] [address] [place] [address], [place] [address] Nov, [facility] [address] [id number] [address] [place] [address], [place] [address] Nov, [facility] [address] [id number] [address] [place] [address], [place] [address] Oct, [facility] [address] [id number] [address] [place] [address], [place] [address] Oct, [facility] [address] [id number] [address] [place] [address], [place] [address] Oct, [facility] [address] [id number] [address] [place] [address], [place] [address] Oct, [facility] [address] [id number] [address] [place] [address], [place] [address] Sep, [facility] [address] [id number] [address] [place] [address], [place] [address] Sep, [facility] [address] [id number] [address] [place] [address], [place] [address] Sep, [facility] [address] [id number] [address] [place] [address], [place] [address] Sep, [facility] [address] [id number] [address] [place] [address], [place] [address] Sep, [facility] [address] [id number] [address] [place] [address], [place] [address] Sep, [facility] [address] [id number] [address] [place] [address], [place] [address] Sep, [facility] [address] [id number] [address] [place] [address], [place] [address] Sep, [facility] [address] [id number] [address] [place] [address], [place] [id number] August, [facility] [address] [id number] [address] [place] [address], [place] [address] August, [facility] [address] [id number] [address] [place] [address], [place] [address] August, [facility] [address] [id number] [address] [place] [address], [place] [address] August, [facility] [address] [id number] [address] [place] [address], [place] [address] August, [facility] [address] [id number] [address] [place] [address], [place] [address] August, [facility] [address] [id number] [address] [place] [address], [place] [address] August, [facility] [address] [id number] [address] [place] [address], [place] [address] August, [facility] [address] [id number] [address] [place] [address], [place] [address] August, [facility] [address] [id number] [address] [place] [address], [place] [address] August, [facility] [address] [id number] [address] [place] [address], [place] [address] Jul, [facility] [address] [id number] [address] [place] [address], [place] [address] Jul, [facility] [address] [id number] [address] [place] [address], [place] [address] Jul, [facility] [address] [id number] [address] [place] [address], [place] [address] Jul, [facility] [address] [id number] [address] [place] [address], [place] [address] Jul, [facility] [address] [id number] [address] [place] [address], [place] [address] Jul, [facility] [address] [id number] [address] [place] [address], [place] [address] Jul, [facility] [address] [id number] [address] [place] [id number] Jul, [facility] [address] [id number] [address] [place] [address], [place] [address] Jun, [facility] [address] [id number] [address] [place] [address], [place] [address] Jun, [facility] [address] [id number] [address] [place] [address], [place] [address] Jun, [facility] [address] [id number] [address] [place] [address], [place] [address] Jun, [facility] [address] [id number] [address] [place] [address], [place] [address] Jun, [facility] [address] [id number] [address] [place] [address], [place] [address] Jun, [facility] [address] [id number] [address] [place] [address], [place] [address] May, [facility] [address] [id number] [address] [place] [address], [place] [address] May, [facility] [address] [id number] [address] [place] [address], [place] [address] May, [facility] [address] [id number] [address] [place] [address], [place] [address] May, [facility] [address] [id number] [address] [place] [address], [place] [address] May, [facility] [address] [id number] [address] [place] [address], [place] [address] May, [facility] [address] [id number] [address] [place] [address], [place] [address] May, [facility] [address] [id number] [address] [place] [address], [place] [address] Apr, [facility] [address] [id number] [address] [place] [id number] Apr, [facility] [address] [id number] [address] [place] [address], [place] [address] Apr, [facility] [address] [id number] [address] [place] [address], [place] [address] Apr, [facility] [address] [id number] [address] [place] [address], [place] [address] Apr, [facility] [address] [id number] [address] [place] [address], [place] [address] Apr, [facility] [address] [id number] [address] [place] [address], [place] [address] Mar, [facility] [address] [id number] [address] [place] [address], [place] [address] Mar, [facility] [address] [id number] [address] [place] [address], [place] [address] Mar, [facility] [address] [id number] [address] [place] [address], [place] [address] Mar, [facility] [address] [id number] [address] [place] [address], [place] [address] Mar, [facility] [address] [id number] [address] [place] [address], [place] [address] Mar, [facility] [address] [id number] [address] [place] [address], [place] [id number] 16 Mar, 2013 [facility] [address] [id number] [address] [place] [address], [place] [address] Mar, [facility] [address] [id number] [address] [place] [address], [place] [address] Mar, [facility] [address] [id number] [address] [place] [address], [place] [address] Mar, [facility] [address] [id number] [address] [place] [address], [place] [address] Feb, [facility] [address] [id number] [address] [place] [address], [place] [address] Feb, [facility] [address] [id number] [address] [place] [address], [place] [address] Feb, [facility] [address] [id number] [address] [place] [address], [place] [address] Feb, [facility] [address] [id number] [address] [place] [address], [place] [address] Feb, [facility] [address] [id number] [address] [place] [id number] Feb, [facility] [address] [id number] [address] [place] [address], [place] [address] Feb, [facility] [address] [id number] [address] [place] [address], [place] [id number] Feb, [facility] [address] [id number] [address] [place] [address], [place] [id number] Feb, [facility] [address] [id number] [address] [place] [address], [place] [id number] Feb, [facility] [address] [id number] [address] [place] [address], [place] [id number] Jan, [facility] [address] [id number] [address] [place] [address], [place] [id number] Jan, [facility] [address] [id number] [address] [place] [id number] Jan, [facility] [address] [id number] [address] [place] [id number] Jan, [facility] [address] [id number] [address] [place] [address], [place] [id number] Jan, [facility] [address] [id number] [address] [place] [address], [place] [id number] Jan, [facility] [address] [id number] [address] [place] [address], [place] [id number] 17 Jan, 2013 [facility] [address] [id number] [address] [place] [address], [place] [id number] Jan, [facility] [address] [id number] [address] [place] [address], [place] [id number] Jan, [facility] [address] [id number] [address] [place] [address], [place] [id number] Dec, [facility] [address] [id number] [address] [place] [address], [place] [id number] Dec, [facility] [address] [id number] [address] [place] [address], [place] [id number] Dec, [facility] [address] [id number] [address] [place] [address], [place] [id number] Dec, [facility] [address] [id number] [address] [place] [address], [place] [id number] Nov, [facility] [address] [id number] [address] [place] [address], [place] [id number] Nov, [facility] [address] [id number] [address] [place] [address], [place] [id number] Nov, [facility] [address] [id number] [address] [place] [address], [place] [id number] Nov, [facility] [address] [id number] [address] [place] [address], [place] [id number] Nov, [facility] [address] [id number] [address] [place] [address], [place] [id number] Nov, [facility] [address] [id number] [address] [place] [address], [place] [id number] Oct, [facility] [address] [id number] [address] [place] [address], [place] [id number] Oct, [facility] [address] [id number] [address] [place] [address], [place] [id number] Oct, [facility] [address] [id number] [address] [place] [address], [place] [id number] Oct, [facility] [address] [id number] [address] [place] [address], [place] [id number] 27 Sep, 2012 [facility] [address] [id number] [address] [place] [address], [place] [id number] Sep, [facility] [address] [id number] [address] [place] [address], [place] [id number] 17 Sep, 2012 [facility] [address] [id number] [address] [place] [address], [place] [id number] 14 Sep, 2012 [facility] [address] [id number] [address] [place] [address], [place] [id number] Sep, [facility] [address] [id number] [address] [place] [address], [place] [id number] August, [facility] [address] [id number] [address] [place] [address], [place] [id number] August, [facility] [address] [id number] [address] [place] [address], [place] [id number] Jul, [facility] [address] [id number] [address] [place] [address], [place] [id number] Jul, [facility] [address] [id number] [address] [place] [address], [place] [id number] 15 Jul, 2012 [facility] [address] [id number] [address] [place] [address], [place] [id number] 09 Jul, 2012 [facility] [address] [id number] [address] [place] [address], [place] [id number] 08 Jul, 2012 [facility] [address] [id number] [address] [place] [address], [place] [id number] 26 Jun, 2012 [facility] [address] [id number] [address] [place] [address], [place] [id number] 20 Jun, 2012 [facility] [address] [id number] [address] [place] [address], [place] [id number] 15 Jun, 2012 [facility] [address] [id number] [address] [place] [id number] Jun, [facility] [address] [id number] [address] [place] [address], [place] [id number] Jun, [facility] [address] [id number] [address] [place] [address], [place] [id number] May, [facility] [address] [id number] [address] [place] [address], [place] [address] May, [facility] [address] [address] [id number] [address] [place] [address], [place] [address] May, [facility] [address] [id number] [address] [place] [address], [place] [address] May, [facility] [address] [id number] [address] [place] [address], [place] [address] May, [facility] [address] [id number] [address] [place] [address], [place] [id number] 14 May, 2012 [facility] [address] [id number] [address] [place] [address], [place] [address] May, [facility] [address] [id number] [address] [place] [address], [place] [id number] 08 May, 2012 [facility] [address] [id number] [address] [place] [address], [place] [id number] 04 May, 2012 [facility] [address] [id number] [address] [place] [address], [place] [address] Apr, [facility] [address] [id number] [address] [place] [address], [place] [address] Apr, [facility] [address] [id number] [address] [place] [address], [place] [address] Apr, [facility] [address] [id number] [address] [place] [address], [place] [address] Apr, [facility] [address] [id number] [address] [place] [address], [place] [address] Apr, [facility] [address] [id number] [address] [place] [address], [place] [address] Mar, [facility] [address] [id number] [address] [place] [address], [place] [address] Mar, [facility] [address] [id number] [address] [place] [address], [place] [id number] Mar, [facility] [address] [id number] [address] [place] [address], [place] [address] Mar, [facility] [address] [id number] [address] [place] [address], [place] [address] Mar, [facility] [address] [id number] [address] [place] [address], [place] [address] Mar, [facility] [address] [id number] [address] [place] [address], [place] [address] Mar, [facility] [address] [id number] [address] [place] [address], [place] [address] Mar, [facility] [address] [id number] [address] [place] [address], [place] [address] Mar, [facility] [address] [id number] [address] [place] [address], [place] [address] Mar, [facility] [address] [id number] [address] [place] [address], [place] [address] Feb, [facility] [address] [id number] [address] [place] [address], [place] [address] Feb, [facility] [address] [id number] [address] [place] [address], [place] [address] Feb, [facility] [address] [id number] [address] [place] [address], [place] [address] Feb, [facility] [address] [id number] [address] [place] [address], [place] [address] Feb, [facility] [address] [id number] [address] [place] [address], [place] [address] Feb, [facility] [address] [id number] [address] [place] [address], [place] [address] Feb, [facility] [address] [id number] [address] [place] [address], [place] [address] Feb, [facility] [address] [id number] [address] [place] [address], [place] [address] 16 Feb, 2012 [facility] [address] [id number] [address] [place] [address], [place] [id number] 16 Feb, 2012 [facility] [address] [id number] [address] [place] [address], [place] [address] Feb, [facility] [address] [id number] [address] [place] [address], [place] [address] Feb, [facility] [address] [id number] [address] [place] [address], [place] [address] Feb, [facility] [address] [id number] [address] [place] [address], [place] [address] Feb, [facility] [address] [id number] [address] [place] [address], [place] [address] Feb, [facility] [address] [id number] [address] [place] [address], [place] [address] Feb, [facility] [address] [id number] [address] [place] [address], [place] [address] Feb, [facility] [address] [id number] [address] [place] [id number] Feb, [facility] [address] [id number] [address] [place] [address], [place] [address] Jan, [facility] [address] [id number] [address] [place] [address], [place] [address] Jan, [facility] [address] [id number] [address] [place] [address], [place] [address] Jan, [facility] [address] [id number] [address] [place] [address], [place] [address] Jan, [facility] [address] [id number] [address] [place] [address], [place] [address] Jan, [facility] [address] [id number] [address] [place] [address], [place] [id number] 24 Jan, 2012 [facility] [address] [id number] [address] [place] [address], [place] [address] Jan, [facility] [address] [id number] [address] [place] [address], [place] [address] Jan, [facility] [address] [id number] [address] [place] [address], [place] [address] Jan, [facility] [address] [id number] [address] [place] [address], [place] [address] Jan, [facility] [address] [id number] [address] [place] [address], [place] [address] 24 Dec, 2011 [facility] [address] [id number] [address] [place] [address], [place] [id number] 18 Dec, 2011 [facility] [address] [id number] [address] [place] [address], [place] [address] 04 Dec, 2011 [facility] [address] [id number] [address] [place] [address], [place] [address] 04 Dec, 2011 [facility] [address] [id number] [address] [place] [address], [place] [address] 29 Nov, 2011 [facility] [address] [id number] [address] [place] [address], [place] [address] Nov, [facility] [address] [id number] [address] [place] [address], [place] [address] 24 Nov, 2011 [facility] [address] [id number] [address] [place] [address], [place] [address] Nov, [facility] [address] [id number] [address] [place] [address], [place] [address] Nov, [facility] [address] [id number] [address] [place] [address], [place] [address] Nov, [facility] [address] [id number] [address] [place] [address], [place] [address] Oct, [facility] [address] [id number] [address] [place] [address], [place] [address] Oct, [facility] [address] [id number] [address] [place] [address], [place] [id number] Oct, [facility] [address] [id number] [address] [place] [address], [place] [address] Oct, [facility] [address] [id number] [address] [place] [address], [place] [address] Oct, [facility] [address] [id number] [address] [place] [address], [place] [address] Sep, [facility] [address] [id number] [address] [place] [address], [place] [address] Sep, [facility] [address] [id number] [address] [place] [address], [place] [address] Sep, [facility] [address] [id number] [address] [place] [address], [place] [address] Sep, [facility] [address] [id number] [address] [place] [address], [place] [address] Sep, [facility] [address] [id number] [address] [place] [address], [place] [address] August, [facility] [address] [id number] [address] [place] [address], [place] [address] August, [facility] [address] [id number] [address] [place] [address], [place] [address] August, [facility] [address] [id number] [address] [place] [address], [place] [address] August, [facility] [address] [id number] [address] [place] [address], [place] [id number] 27 Jul, 2011 [facility] [address] [id number] [address] [place] [address], [place] [address] 24 Jul, 2011 [facility] [address] [id number] [address] [place] [address], [place] [address] 19 Jul, 2011 [facility] [address] [id number] [address] [place] [address], [place] [address] Jul, [facility] [address] [id number] [address] [place] [address], [place] [address] 18 Jul, 2011 [facility] [address] [id number] [address] [place] [address], [place] [address] Jul, [facility] [address] [id number] [address] [place] [address], [place] [id number] 11 Jul, 2011 [facility] [address] [id number] [address] [place] [address], [place] [address] 10 Jul, 2011 [facility] [address] [id number] [address] [place] [address], [place] [id number] 09 Jul, 2011 [facility] [address] [id number] [address] [place] [address], [place] [id number] 07 Jul, 2011 [facility] [address] [id number] [address] [place] [address], [place] [id number] 05 Jul, 2011 [facility] [address] [id number] [address] [place] [address], [place] [address] Jul, [facility] [address] [id number] [address] [place] [address], [place] [address] Jul, [facility] [address] [id number] [address] [place] [address], [place] [address] Jul, [facility] [address] [id number] [address] [place] [address], [place] [address] Jun, [facility] [address] [id number] [address] [place] [address], [place] [address] Jun, [facility] [address] [id number] [address] [place] [address], [place] [address] Jun, [facility] [address] [id number] [address] [place] [address], [place] [address] 16 Jun, 2011 [facility] [address] [id number] [address] [place] [address], [place] [address] 27 May, 2011 [facility] [address] [id number] [address] [place] [address], [place] [address] 16 May, 2011 [facility] [address] [id number] [address] [place] [address], [place] [address] May, [facility] [address] [id number] [address] [place] [address], [place] [address] Apr, [facility] [address] [id number] [address] [place] [address], [place] [id number] 18 Apr, 2011 [facility] [address] [id number] [address] [place] [address], [place] [address] Apr, [facility] [address] [id number] [address] [place] [address], [place] [address] Apr, [facility] [address] [id number] [address] [place] [address], [place] [address] Apr, [facility] [address] [id number] [address] [place] [address], [place] [address] Mar, [facility] [address] [id number] [address] [place] [address], [place] [address] Mar, [facility] [address] [id number] [address] [place] [address], [place] [id number] Mar, [facility] [address] [id number] [address] [place] [address], [place] [address] Mar, [facility] [address] [id number] [address] [place] [address], [place] [id number] 16 Mar, 2011 [facility] [address] [id number] [address] [place] [id number] Mar, [facility] [address] [id number] [address] [place] [address], [place] [id number] Mar, [facility] [address] [id number] [address] [place] [id number] Feb, [facility] [address] [id number] [address] [place] [address], [place] [address] Feb, [facility] [address] [id number] [address] [place] [address], [place] [address] Feb, [facility] [address] [id number] [address] [place] [address], [place] [address] Feb, [facility] [address] [id number] [address] [place] [address], [place] [address] 16 Feb, 2011 [facility] [address] [id number] [address] [place] [id number] 14 Feb, 2011 [facility] [address] [id number] [address] [place] [address], [place] [address] Feb, [facility] [address] [id number] [address] [place] [id number] 31 Jan, 2011 [facility] [address] [id number] [address] [place] [id number] 31 Jan, 2011 [facility] [address] [id number] [address] [place] [id number] 31 Jan, 2011 [facility] [address] [id number] [address] [place] [id number] 18 Jan, 2011 [facility] [address] [id number] [address] [place] [id number] 17 Jan, 2011 [facility] [address] [id number] [address] [place] [id number] 17 Jan, 2011 [facility] [address] [id number] [address] [place] [id number] Jun, [facility] [address] [id number] [address] [place] [address], [place] [address] 30 Mar, 2010 [facility] [address] [id number] [address] [place] [address], [place] [id number] 20 Mar, 2010 [facility] [address] [id number] [address] [place] [address], [place] [id number] 14 Mar, 2010 [facility] [address] [id number] [address] [place] [address], [place] [address] 14 Mar, 2010 [facility] [address] [id number] [address] [place] [address], [place] [id number] 13 Mar, 2010 [facility] [address] [id number] [address] [place] [address], [place] [address] 07 Mar, 2010 [facility] [address] [id number] [address] [place] [address], [place] [id number] 02 Mar, 2010 [facility] [address] [id number] [address] [place] [address], [place] [id number] Mar, [facility] [address] [id number] [address] [place] [address], [place] [id number] 30 Feb, 2010 [facility] [address] [id number] [address] [place] [address], [place] [id number] 29 Feb, 2010 [facility] [address] [id number] [address] [place] [address], [place] [id number] 17 Feb, 2010 [facility] [address] [id number] [address] [place] [address], [place] [id number] 17 Feb, 2010 [facility] [address] [id number] [address] [place] [address], [place] [id number] 16 Feb, 2010 [facility] [address] [id number] [address] [place] [address], [place] [id number] 08 Feb, 2010 [facility] [address] [id number] [address] [place] [address], [place] [id number] 04 Feb, 2010 [facility] [address] [id number] [address] [place] [address] [address] Feb, [facility] [address] [id number] [address] [place] [id number] Jan, [facility] [address] [id number] [address] [place] [id number] Jan, [facility] [address] [id number] [address] [place] [id number] Jan, [facility] [address] [id number] [address] [place] [id number] Jan, [facility] [address] [id number] [address] [place] [id number] 29 Mar, 2009 [facility] [address] [id number] [address] [place] [id number] Mar, [facility] [address] [id number] [address] [place] [id number] Mar, [facility] [address] [id number] [address] [place] [id number] Mar, [facility] [address] [id number] [address] [place] [id number] 14 Mar, 2009 [facility] [address] [id number] [address] [place] [id number] Mar, [facility] [address] [id number] [address] [place] [id number] Feb, [facility] [address] [id number] [address] [place] [id number] Feb, [facility] [address] [id number] [address] [place] [id number] Jan, [facility] [address] [id number] [address] [place] [id number] Sep, [facility] [address] [id number] [address] [place] [id number] May, IMMUNIZATIONS No Known Immunizations SOCIAL HISTORY [...] Surgical History Left ear surgery Hospitalization History [facility] in [place]- Spontane ous Pneumothorax Hospitalization History [facility]- Colon resection Hospitalization History [facility] - diarrhea/ couldnt urin ate nov 2017 Hospitalization History pain /hip to foot right side 10/16/19 19
--- OUTSIDE RECORDS SUMMARY | 2019-08-28 09:11 | XMS REPORT ---
Author Author Dixon Lundberg Doctor Organization [facility] [place] [facility] Address Unknown Phone Unavailable Care Team Providers Care Machine Etcher Name Role Phone Migration, Doctor Unavailable Unavailable PROBLEMS Type Condition ICD9-CM Code IWB32-YV Code Onset Dates Condition S tatus SNOMED Code Problem Insomnia G47.00 Active 810547848 Problem Anxiety F41.9 Active 31565713 Problem HTN (hypertension) I10 Active 3 3427439 Problem Hyperlipidemia E78.5 Active 52169 004 Problem Thoracic back pain, unspecif ied back pain laterality, unspecified chronicity M54.6 Active 368257579 Problem Vitamin D deficiency E55.9 Active 05670544 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 69651393 Problem Chronic pain G89.29 Active 7389864 1 Problem Schizophrenia, unspecified type F20.9 Active 54846186 Problem Constipation K59.00 Active 7014348 8 Problem Environmental allergies Z91.09 Active 181302434 Problem Primary insomnia F51.01 Active 397 2004 Problem Chronic kidney disease, stage III (moderate) N18.3 Active 181562794 Problem Vision loss H54.7 Active 98873898 1 ALLERGIES No Information ENCOUNTERS Encounter Location Date Diagnosis [place] [address] [place] [id number] [place] [address] Oct, Thoracic back pain, unspecif ied back pain laterality, unspecified chronicity M54.6 [place] [address] [place] [address] [id number] [place] [address] Oct, Anxiety F41.9 and Thoracic b ack pain, unspecified back pain laterality, unspecified chronicity M54.6 [place] [address] [place] [id number] [place] [address] Oct, Schizophrenia, unspecified t ype F20.9 and Acute kidney injury N17.9 [place] [address] [place] [address] [id number] [place] [address] Oct, [facility] [address] [id number] [address] [place] [address] Oct, [facility] [address] [id number] [address] [place] [address] Oct, Thoracic back pain, unspecif ied back pain laterality, unspecified chronicity M54.6 [facility] [address] [id number] [address] [place] [address] Oct, [facility] [address] [id number] [address] [place] [address] Oct, [facility] [address] [id number] [address] [place] [address] Sep, Anxiety F41.9 [facility] [address] [id number] [address] [place] [address] Sep, [facility] [address] [id number] [address] [place] [address] Sep, Thoracic back pain, unspecif ied back pain laterality, unspecified chronicity M54.6 [facility] [address] [id number] [address] [place] [address] Sep, [facility] [address] [id number] [address] [place] [address] Sep, [facility] [address] [id number] [address] [place] [address] Sep, [facility] [address] [id number] [address] [place] [address] Sep, [facility] [address] [id number] [address] [place] [address] Sep, [facility] [address] [id number] [address] [place] [address] Sep, [facility] [address] [id number] [address] [place] [address] Sep, Chronic pain G89.29 ; Chroni c kidney disease, stage III (moderate) N18.3 ; Hyperlipidemia E78.5 and Insomnia G47.00 [facility] [address] [id number] [address] [place] [address] Sep, Thoracic back pain, unspecif ied back pain laterality, unspecified chronicity M54.6 [facility] [address] [id number] [address] [place] [address] August, Anxiety F41.9 [facility] [address] [id number] [address] [place] [address] August, Thoracic back pain, unspecif ied back pain laterality, unspecified chronicity M54.6 and Anxiety F41.9 [facility] [address] [id number] [address] [place] [address] August, 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 [facility] [address] [id number] [address] [place] [address] August, 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 [facility] [address] [id number] [address] [place] [address] August, [facility] [address] [id number] [address] [place] [address] August, [facility] [address] [id number] [address] [place] [address] August, Thoracic back pain, unspecif ied back pain laterality, unspecified chronicity M54.6 [facility] [address] [id number] [address] [place] [address] August, [facility] [address] [id number] [address] [place] [address] August, Anxiety F41.9 and Thoracic b ack pain, unspecified back pain laterality, unspecified chronicity M54.6 [facility] [address] [id number] [address] [place] [address] Jul, [facility] [address] [facility] [id number] [address] [place] [address] Jul, Thoracic back pain, unspecif ied back pain laterality, unspecified chronicity M54.6 [facility] [address] [facility] [id number] [address] [place] [address] Jun, Anxiety F41.9 and Thoracic b ack pain, unspecified back pain laterality, unspecified chronicity M54.6 [facility] [address] [place] [id number] [address] [place] [address] Jun, Anxiety F41.9 and Thoracic b ack pain, unspecified back pain laterality, unspecified chronicity M54.6 [place] [address] [place] [address] [id number] [place] [address] Jun, Thoracic back pain, unspecif ied back pain laterality, unspecified chronicity M54.6 [place] [address] [address] Jun, Anxiety F41.9 and Thoracic b ack pain, unspecified back pain laterality, unspecified chronicity M54.6 [place] [address] [place] [id number] [place] [address] May, [facility] [address] [place] [address] [id number] [address] [place] [address] May, [place] [address] [place] [address] [id number] [place] [address] May, [facility] [address] [place] [address] [id number] [address] [place] [address] May, Anxiety F41.9 and Encounter for medication monitoring Z51.81 [place] [address] [place] [id number] [address] [place] [address] May, Anxiety F41.9 and Thoracic b ack pain, unspecified back pain laterality, unspecified chronicity M54.6 [place] [id number] [place] [address] Apr, Hyperlipidemia 272.4 [facility] [address] [id number] [address] [place] [address] Apr, Chronic pain G89.29 ; Anxiet y F41.9 ; Cervical radiculopathy M54.12 and Vision loss H54.7 [facility] [address] [id number] [address] [place] [address] Apr, [facility] [address] [id number] [address] [place] [address] Apr, Anxiety F41.9 and Thoracic b ack pain, unspecified back pain laterality, unspecified chronicity M54.6 [place] [address] [id number] [address] [place] [address] 17 Mar, 2018 [facility] [address] [id number] [address] [place] [address] Mar, Anxiety F41.9 and Thoracic b ack pain, unspecified back pain laterality, unspecified chronicity M54.6 [facility] [address] [id number] [address] [place] [address] Feb, Anxiety F41.9 and Thoracic b ack pain, unspecified back pain laterality, unspecified chronicity M54.6 [facility] [address] [id number] [address] [place] [address] 07 Feb, 2018 Thoracic back pain, unspecif ied back pain laterality, unspecified chronicity M54.6 [facility] [address] [id number] [address] [place] [address] Jan, [facility] [address] [id number] [address] [place] [address] Jan, Anxiety F41.9 and Thoracic b ack pain, unspecified back pain laterality, unspecified chronicity M54.6 [facility] [address] [id number] [address] [place] [address] Dec, Diarrhea of presumed infecti ous origin R19.7 [facility] [address] [id number] [address] [place] [address] 19 Dec, 2017 Diarrhea of presumed infecti ous origin R19.7 [facility] [address] [id number] [address] [place] [address] 18 Dec, 2017 Thoracic back pain, unspecif ied back pain laterality, unspecified chronicity M54.6 [facility] [address] [id number] [address] [place] [address] 17 Dec, 2017 [facility] [address] [id number] [address] [place] [address] 17 Dec, 2017 Anxiety F41.9 and Thoracic b ack pain, unspecified back pain laterality, unspecified chronicity M54.6 [facility] [address] [id number] [address] [place] [address] 13 Dec, 2017 Diarrhea of presumed infecti ous origin R19.7 [facility] [address] [id number] [address] [place] [address] 13 Dec, 2017 [facility] [address] [id number] [address] [place] [address] 12 Dec, 2017 Anxiety F41.9 and Thoracic b ack pain, unspecified back pain laterality, unspecified chronicity M54.6 [facility] [address] [id number] [address] [place] [address] 12 Dec, 2017 Anxiety F41.9 and Thoracic b ack pain, unspecified back pain laterality, unspecified chronicity M54.6 [facility] [address] [place] [id number] 11 Dec, 2017 Diarrhea of presumed infectious origin R 19.7 ; Anxiety F41.9 ; Thoracic back pain, unspecified back pain laterality, unspecified chronicity M54.6 and HTN (hypertension) I10 [facility] [address] [id number] [address] [place] [address] 05 Dec, 2017 Anxiety F41.9 [facility] [address] [place] [id number] Dec, Anxiety F41.9 ; Diarrhea of presumed inf ectious origin R19.7 ; Generalized abdominal pain R10.84 and Localized edema R60.0 [place] [address] [address] Nov, [facility] [address] [place] [id number] Nov, Anxiety F41.9 ; Urinary retention R33.9 ; Diarrhea of presumed infectious origin R19.7 ; Weakness R53.1 ; Acute kidney failure, unspecified N17.9 ; Chronic kidney disease, stage III (moderate) N18.3 and Thoracic back pain, unspecified back pain laterality, unspecified chronicity M54.6 [place] [address] [address] Oct, Thoracic back pain, unspecif ied back pain laterality, unspecified chronicity M54.6 and Anxiety F41.9 [place] [address] [address] Sep, Thoracic back pain, unspecif ied back pain laterality, unspecified chronicity M54.6 and Anxiety F41.9 [place] [address] [address] Sep, Thoracic back pain, unspecif ied back pain laterality, unspecified chronicity M54.6 ; Anxiety F41.9 and Encounter for medication monitoring Z51.81 [place] [address] [address] August, [place] [address] [address] August, Thoracic back pain, unspecif ied back pain laterality, unspecified chronicity M54.6 and Anxiety F41.9 [place] [address] [address] August, Hyperlipidemia E78.5 and HTN (hypertension) I10 [place] [address] [place] [address] [address] August, [facility] [address] [facility] [id number] [address] [place] [address] August, Medicare welcome exam Z00.00 ; Chronic kidney failure N18.9 ; Anxiety F41.9 ; Chronic pain G89.29 ; Insomnia G47.00 ; Hyperlipidemia E78.5 ; HTN (hypertension) I10 and Thoracic back pain, unspecified back pain laterality, unspecified chronicity M54.6 [facility] [address] [facility] [id number] [address] [place] [address] Jul, [place] [address] [facility] [id number] [address] [place] [address] Jul, [facility] [address] [facility] [id number] [address] [place] [address] Jul, [facility] [address] [facility] [id number] [address] [place] [address] Jul, Anxiety F41.9 [facility] [address] [facility] [id number] [address] [place] [address] Jul, Thoracic back pain, unspecif ied back pain laterality, unspecified chronicity M54.6 and Anxiety F41.9 [facility] [address] [facility] [id number] [address] [place] [address] Jun, Thoracic back pain, unspecif ied back pain laterality, unspecified chronicity M54.6 and Anxiety F41.9 [facility] [address] [facility] [id number] [address] [place] [address] May, Thoracic back pain, unspecif ied back pain laterality, unspecified chronicity M54.6 and Anxiety F41.9 [facility] [address] [facility] [id number] [address] [place] [address] Apr, Thoracic back pain, unspecif ied back pain laterality, unspecified chronicity M54.6 and Anxiety F41.9 [facility] [address] [place] [address] [id number] [address] [place] [address] Mar, [facility] [address] [facility] [id number] [address] [place] [address] Mar, Thoracic back pain, unspecif ied back pain laterality, unspecified chronicity M54.6 and Anxiety F41.9 [facility] [address] [place] [address] [id number] [address] [place] [address] Mar, Thoracic back pain, unspecif ied back pain laterality, unspecified chronicity M54.6 ; HTN (hypertension) I10 ; Hyperlipidemia E78.5 and Anxiety F41.9 [place] [address] [address] Feb, Thoracic back pain, unspecif ied back pain laterality, unspecified chronicity M54.6 and Anxiety F41.9 [place] [address] [place] [id number] [address] [place] [address] Nov, [facility] [address] [id number] [place] [address] Oct, [place] [address] [address] Oct, Thoracic back pain, unspecif ied back pain laterality, unspecified chronicity M54.6 [place] [address] [place] [id number] [place] [address] Oct, HTN (hypertension) I10 ; Con stipation K59.00 ; Hyperlipidemia E78.5 ; Thoracic back pain, unspecified back pain laterality, unspecified chronicity M54.6 ; Chronic pain G89.29 ; Anxiety F41.9 ; Chronic kidney failure N18.9 ; Environmental allergies Z91.09 ; Vitamin D deficiency E55.9 and Primary insomnia F51.01 [facility] [address] [place] [address] [id number] [address] [place] [address] Sep, Anxiety F41.9 [place] [address] [address] Sep, [facility] [place] [facility] [address] [id number] [address] [place] [address] August, Anxiety F41.9 [facility] [place] [facility] [address] [id number] [address] [place] [address] August, [facility] [address] [id number] [address] [place] [address] Jul, Anxiety F41.9 [facility] [address] [id number] [address] [place] [address] Jul, [facility] [address] [id number] [address] [place] [address] Jun, Anxiety F41.9 [facility] [address] [id number] [address] [place] [address] Jun, [facility] [place] [facility] [address] [id number] [address] [place] [address] May, [facility] [address] [id number] [address] [place] [address] May, [facility] [address] [id number] [address] [place] [address] May, [facility] [place] [facility] [address] [id number] [address] [place] [address] Apr, [facility] [address] [id number] [address] [place] [address] Apr, [facility] [address] [id number] [address] [place] [address] Apr, Anxiety F41.9 [facility] [address] [id number] [address] [place] [address] Apr, Anxiety F41.9 [facility] [address] [id number] [address] [place] [address] Apr, [facility] [address] [id number] [address] [place] [address] Mar, HTN (hypertension) I10 ; Phillip mor R25.1 ; Hypercholesterolemia E78.0 ; Constipation K59.00 ; Chronic pain G89.29 ; Hyperlipidemia E78.5 ; Insomnia G47.00 ; Anxiety F41.9 and Thoracic back pain, unspecified back pain laterality, unspecified chronicity M54.6 [facility] [address] [id number] [address] [place] [address] Mar, Tremor R25.1 ; HTN (hyperten stas) I10 ; Hypercholesterolemia E78.0 ; Constipation K59.00 ; Chronic pain G89.29 ; Hyperlipidemia E78.5 ; Insomnia G47.00 ; Anxiety F41.9 and Thoracic back pain, unspecified back pain laterality, unspecified chronicity M54.6 [facility] [address] [facility] [id number] [address] [place] [address] Mar, [facility] [address] [facility] [id number] [address] [place] [address] Mar, [facility] [address] [id number] [address] [place] [address] Feb, [facility] [address] [facility] [id number] [address] [place] [address] Jan, [facility] [address] [facility] [id number] [address] [place] [address] Jan, [facility] [address] [id number] [address] [place] [address] Dec, [facility] [address] [id number] [address] [place] [address] Nov, [facility] [address] [id number] [address] [place] [address] Nov, [facility] [address] [id number] [address] [place] [address] Oct, Anxiety F41.9 [facility] [address] [id number] [address] [place] [address] Oct, Chronic pain G89.29 [facility] [address] [facility] [id number] [address] [place] [address] Sep, [facility] [address] [facility] [id number] [address] [place] [address] Sep, [facility] [address] [address] [id number] [address] [place] [address] Sep, [facility] [address] [place] [address] [id number] [address] [place] [address] Sep, [facility] [address] [facility] [id number] [address] [place] [address] Sep, Chronic pain syndrome G89.4 [place] [address] [place] [id number] [address] [place] [address] Sep, HTN (hypertension) I10 ; Chr onic pain G89.29 ; Hypercholesterolemia E78.0 ; Chronic kidney failure N18.9 ; Constipation, unspecified constipation type K59.00 ; Anxiety F41.9 and Thoracic back pain, unspecified back pain laterality, unspecified chronicity M54.6 [place] [address] [address] August, Chronic pain syndrome G89.4 [place] [address] [address] August, Chronic pain syndrome G89.4 [place] [address] [place] [id number] [address] [place] [address] Jul, Anxiety disorder, unspecifie d F41.9 and Chronic pain syndrome G89.4 [place] [address] [place] [id number] [address] [place] [address] Jul, Insomnia, unspecified G47.00 and Chronic pain syndrome G89.4 [facility] [address] [id number] [address] [place] [address] Jul, Allergic rhinitis J30.9 [facility] [address] [facility] [id number] [address] [place] [address] 15 Jul, 2015 Constipation, unspecified K5 9.00 [facility] [address] [id number] [address] [place] [address] Jul, [facility] [address] [facility] [id number] [address] [place] [address] Jun, [facility] [address] [id number] [address] [place] [address] Jun, [facility] [address] [id number] [address] [place] [id number] Jun, [facility] [address] [id number] [address] [place] [phone] Jun, [facility] [address] [facility] [id number] [address] [place] [id number] Jun, [facility] [address] [facility] [id number] [address] [place] [phone] Jun, [facility] [address] [facility] [id number] [address] [place] [phone] May, [facility] [address] [facility] [id number] [address] [place] [phone] May, [facility] [address] [facility] [id number] [address] [place] [id number] May, Anxiety F41.9 ; Insomnia G47 .00 ; Hyperlipidemia E78.5 ; Chronic pain G89.29 ; HTN (hypertension) I10 ; Environmental allergies V15.09 and Constipation 564.00 [facility] [address] [facility] [id number] [address] [place] [phone] Apr, [facility] [address] [facility] [id number] [address] [place] [phone] Apr, [facility] [address] [facility] [id number] [address] [place] [phone] Apr, [facility] [address] [facility] [id number] [address] [place] [phone] Mar, [facility] [address] [facility] [id number] [id number] Mar, [facility] [address] [facility] [id number] [address] [place] [id number] Mar, [facility] [address] [place] [id number] [place] [phone] Feb, [facility] [address] [facility] [id number] [address] [place] [phone] Feb, [facility] [address] [place] [id number] [place] [phone] Feb, [facility] [address] [address] Jan, HTN (hypertension) I10 ; Con stipation K59.00 ; Chronic pain G89.29 ; Hyperlipidemia E78.5 ; Hypercholesterolemia E78.0 ; Insomnia G47.00 and Anxiety F41.9 [facility] [address] [address] Jan, [facility] [address] [id number] [address] [place] [address] Dec, [facility] [address] [address] Nov, [facility] [address] [address] Oct, Chronic kidney disease, unsp ecified 585.9 ; Chronic pain syndrome 338.4 ; Hyperlipidemia 272.4 and Essential hypertension 401.9 [facility] [address] [id number] [address] [place] [address] Oct, Chronic kidney disease 585.9 [facility] [address] [id number] [address] [place] [address] Oct, [facility] [address] [facility] [id number] [address] [place] [address] 15 Oct, 2014 Chronic kidney disease, unsp ecified 585.9 ; Hypercalcemia 275.42 ; Hyperlipidemia 272.4 ; Essential hypertension 401.9 ; Chronic pain syndrome 338.4 ; Insomnia 780.52 ; Constipation 564.00 ; Environmental allergies V15.09 and Anxiety 300.00 [facility] [address] [facility] [id number] [address] [place] [address] 15 Oct, 2014 Chronic kidney disease 585.9 [facility] [address] [id number] [address] [place] [address] 15 Oct, 2014 [facility] [address] [facility] [id number] [address] [place] [address] Oct, Chronic kidney disease 585.9 and Hyperlipidemia 272.4 [facility] [address] [facility] [id number] [address] [place] [address] Oct, [facility] [address] [facility] [id number] [address] [place] [address] Oct, [facility] [address] [facility] [id number] [address] [place] [address] Sep, [facility] [address] [facility] [id number] [address] [place] [address] Sep, [facility] [address] [facility] [id number] [address] [place] [address] Sep, Chronic kidney disease 585.9 and Hyperlipidemia 272.4 [facility] [address] [facility] [id number] [address] [place] [address] Sep, [facility] [address] [facility] [id number] [address] [place] [address] August, [facility] [address] [facility] [id number] [address] [place] [address] August, [facility] [address] [facility] [id number] [address] [place] [address] Jul, [facility] [address] [id number] [address] [place] [address], [place] [address] 13 Jul, 2014 [facility] [address] [id number] [address] [place] [address], [place] [address] Jun, [facility] [address] [id number] [address] [place] [address], [place] [address] Jun, [facility] [address] [id number] [address] [place] [address], [place] [address] Jun, [facility] [address] [id number] [address] [place] [address], [place] [address] Jun, [facility] [address] [id number] [address] [place] [address], [place] [address] Jun, [facility] [address] [id number] [address] [place] [address], [place] [address] Jun, [facility] [address] [id number] [address] [place] [address], [place] [address] Jun, [facility] [address] [id number] [address] [place] [address], [place] [address] Jun, [facility] [address] [id number] [address] [place] [address], [place] [address] May, [facility] [address] [id number] [address] [place] [address], [place] [address] May, [facility] [address] [id number] [address] [place] [address], [place] [address] May, [facility] [address] [id number] [address] [place] [address], [place] [address] May, [facility] [address] [id number] [address] [place] [address], [place] [address] Apr, [facility] [address] [id number] [address] [place] [address], [place] [address] Apr, [facility] [address] [id number] [address] [place] [address] [place] [address] Apr, [facility] [address] [id number] [address] [place] [address], [place] [address] Apr, [facility] [address] [id number] [address] [place] [address], [place] [address] Apr, [facility] [address] [id number] [address] [place] [address], [place] [address] Apr, [facility] [address] [id number] [address] [place] [address], [place] [address] Apr, [facility] [address] [id number] [address] [place] [address], [place] [address] Apr, [facility] [address] [id number] [address] [place] [address], [place] [address] Apr, [facility] [address] [id number] [address] [place] [address], [place] [address] Apr, [facility] [address] [id number] [address] [place] [address], [place] [address] Apr, [facility] [address] [id number] [address] [place] [address], [place] [address] Mar, [facility] [address] [id number] [address] [place] [address], [place] [address] Mar, [facility] [address] [id number] [address] [place] [address], [place] [address] Feb, [facility] [address] [id number] [address] [place] [address], [place] [address] Feb, [facility] [address] [id number] [address] [place] [address], [place] [address] Feb, [facility] [address] [id number] [address] [place] [address], [place] [address] Feb, [facility] [address] [id number] [address] [place] [address], [place] [address] Feb, [facility] [address] [id number] [address] [place] [address], [place] [address] Feb, [facility] [address] [id number] [address] [place] [address], [place] [address] Feb, [facility] [address] [id number] [address] [place] [address], [place] [address] Feb, [facility] [address] [id number] [address] [place] [address], [place] [address] Feb, [facility] [address] [id number] [address] [place] [address], [place] [address] Feb, [facility] [address] [id number] [address] [place] [address], [place] [address] Jan, [facility] [address] [id number] [address] [place] [address], [place] [address] Jan, [facility] [address] [id number] [address] [place] [address], [place] [address] Jan, [facility] [address] [id number] [address] [place] [address], [place] [address] Jan, [facility] [address] [id number] [address] [place] [address], [place] [address] Jan, [facility] [address] [id number] [address] [place] [address], [place] [address] Jan, [facility] [address] [id number] [address] [place] [address], [place] [address] Jan, [facility] [address] [id number] [address] [place] [address], [place] [address] Jan, [facility] [address] [id number] [address] [place] [address], [place] [address] 16 Jan, 2014 [facility] [address] [id number] [address] [place] [address], [place] [address] Jan, [facility] [address] [id number] [address] [place] [address], [place] [address] Jan, [facility] [address] [id number] [facility] [place] [address] Dec, 2013 [facility] [address] [id number] [address] [place] [address], [place] [address] Dec, 2013 [facility] [address] [id number] [address] [place] [address], [place] [address] Dec, 2013 [facility] [address] [id number] [address] [place] [address], [place] [address] Dec, 2013 [facility] [address] [id number] [address] [place] [address], [place] [address] 18 Dec, 2013 [facility] [address] [id number] [address] [place] [address], [place] [address] Dec, [facility] [address] [id number] [address] [place] [address], [place] [address] Dec, [facility] [address] [id number] [address] [place] [address], [place] [address] Dec, [facility] [address] [id number] [address] [place] [address], [place] [address] Nov, [facility] [address] [id number] [address] [place] [address], [place] [address] Nov, [facility] [address] [id number] [address] [place] [address], [place] [address] Nov, [facility] [address] [id number] [address] [place] [address], [place] [address] Nov, [facility] [address] [id number] [address] [place] [address], [place] [address] Nov, [facility] [address] [id number] [address] [place] [address], [place] [address] Nov, [facility] [address] [id number] [address] [place] [address], [place] [address] Nov, [facility] [address] [id number] [address] [place] [address], [place] [address] Nov, [facility] [address] [id number] [address] [place] [address], [place] [address] Oct, [facility] [address] [id number] [address] [place] [address], [place] [address] Oct, [facility] [address] [id number] [address] [place] [address], [place] [address] Oct, [facility] [address] [id number] [address] [place] [address], [place] [address] Oct, [facility] [address] [id number] [address] [place] [address], [place] [address] Sep, [facility] [address] [id number] [address] [place] [address], [place] [address] Sep, [facility] [address] [id number] [address] [place] [address], [place] [address] Sep, [facility] [address] [id number] [address] [place] [address], [place] [address] Sep, [facility] [address] [id number] [address] [place] [address], [place] [address] Sep, [facility] [address] [id number] [address] [place] [address], [place] [address] Sep, [facility] [address] [id number] [address] [place] [address], [place] [address] Sep, [facility] [address] [id number] [address] [place] [address], [place] [address] Sep, [facility] [address] [id number] [address] [place] [address], [place] [address] August, [facility] [address] [id number] [address] [place] [address], [place] [address] August, [facility] [address] [id number] [address] [place] [address], [place] [address] August, [facility] [address] [id number] [address] [place] [address], [place] [address] August, [facility] [address] [id number] [address] [place] [address], [place] [address] August, [facility] [address] [id number] [address] [place] [address], [place] [address] August, [facility] [address] [id number] [address] [place] [address], [place] [address] August, [facility] [address] [id number] [address] [place] [address], [place] [address] August, [facility] [address] [id number] [address] [place] [address], [place] [address] August, [facility] [address] [id number] [address] [place] [address], [place] [address] August, [facility] [address] [id number] [address] [place] [address], [place] [address] Jul, [facility] [address] [id number] [address] [place] [address], [place] [address] Jul, [facility] [address] [id number] [address] [place] [address], [place] [address] Jul, [facility] [address] [id number] [address] [place] [address], [place] [address] Jul, [facility] [address] [id number] [address] [place] [address], [place] [address] Jul, [facility] [address] [id number] [address] [place] [address], [place] [address] Jul, [facility] [address] [id number] [address] [place] [address], [place] [address] Jul, [facility] [address] [id number] [address] [place] [address], [place] [address] Jul, [facility] [address] [id number] [address] [place] [address], [place] [address] Jun, [facility] [address] [id number] [address] [place] [address], [place] [address] Jun, [facility] [address] [id number] [address] [place] [address], [place] [address] Jun, [facility] [address] [id number] [address] [place] [address], [place] [address] Jun, [facility] [address] [id number] [address] [place] [address], [place] [address] Jun, [facility] [address] [id number] [address] [place] [address], [place] [address] Jun, [facility] [address] [id number] [address] [place] [address], [place] [address] May, [facility] [address] [id number] [address] [place] [address], [place] [address] May, [facility] [address] [id number] [address] [place] [address], [place] [address] May, [facility] [address] [id number] [address] [place] [address], [place] [address] May, [facility] [address] [id number] [address] [place] [address], [place] [address] May, [facility] [address] [id number] [address] [place] [address], [place] [address] May, [facility] [address] [id number] [address] [place] [address], [place] [address] May, [facility] [address] [id number] [address] [place] [address], [place] [address] Apr, [facility] [address] [id number] [address] [place] [address], [place] [address] Apr, [facility] [address] [id number] [address] [place] [address] Apr, [facility] [address] [id number] [address] [place] [address], [place] [address] 14 Apr, 2013 [facility] [address] [id number] [address] [place] [address], [place] [address] 10 Apr, 2013 [facility] [address] [id number] [address] [place] [address], [place] [address] 10 Apr, 2013 [facility] [address] [id number] [address] [place] [address], [place] [address] Mar, [facility] [address] [id number] [address] [place] [address], [place] [address] Mar, [facility] [address] [id number] [address] [place] [address], [place] [address] Mar, [facility] [address] [id number] [address] [place] [address], [place] [address] Mar, [facility] [address] [id number] [address] [place] [address], [place] [address] Mar, [facility] [address] [id number] [address] [place] [address], [place] [address] Mar, [facility] [address] [id number] [address] [place] [address], [place] [address] 16 Mar, 2013 [facility] [address] [id number] [address] [place] [address], [place] [address] 16 Mar, 2013 [facility] [address] [id number] [address] [place] [address], [place] [address] Mar, [facility] [address] [id number] [address] [place] [address], [place] [address] Mar, [facility] [address] [id number] [address] [place] [address], [place] [address] Feb, [facility] [address] [id number] [address] [place] [address], [place] [address] Feb, [facility] [address] [id number] [address] [place] [address], [place] [address] Feb, [facility] [address] [id number] [address] [place] [address], [place] [address] Feb, [facility] [address] [id number] [address] [place] [address], [place] [address] Feb, [facility] [address] [id number] [address] [place] [address], [place] [address] Feb, [facility] [address] [id number] [address] [place] [address] Feb, [facility] [address] [id number] [address] [place] [address], [place] [address] Feb, [facility] [address] [id number] [address] [place] [address], [place] [address] Feb, [facility] [address] [id number] [address] [place] [address], [place] [address] Feb, [facility] [address] [id number] [address] [place] [address], [place] [address] Jan, [facility] [address] [id number] [address] [place] [address], [place] [address] Jan, [facility] [address] [id number] [address] [place] [address], [place] [address] Jan, [facility] [address] [id number] [address] [place] [address] Jan, [facility] [address] [id number] [address] [place] [address] Jan, [facility] [address] [id number] [address] [place] [address], [place] [address] Jan, [facility] [address] [id number] [address] [place] [address], [place] [address] 17 Jan, 2013 [facility] [address] [id number] [address] [place] [address], [place] [address] Jan, [facility] [address] [id number] [address] [place] [address], [place] [address] Jan, [facility] [address] [id number] [address] [place] [address], [place] [address] Dec, [facility] [address] [id number] [address] [place] [address], [place] [address] Dec, [facility] [address] [id number] [address] [place] [address], [place] [address] Dec, [facility] [address] [id number] [address] [place] [address], [place] [address] Dec, [facility] [address] [id number] [address] [place] [address], [place] [address] Nov, [facility] [address] [id number] [address] [place] [address], [place] [address] Nov, [facility] [address] [id number] [address] [place] [address], [place] [address] Nov, [facility] [address] [id number] [address] [place] [address], [place] [address] Nov, [facility] [address] [id number] [address] [place] [address], [place] [address] Nov, [facility] [address] [id number] [address] [place] [address], [place] [address] Nov, [facility] [address] [id number] [address] [place] [address], [place] [address] Oct, [facility] [address] [id number] [address] [place] [address], [place] [address] Oct, [facility] [address] [id number] [address] [place] [address], [place] [address] Oct, [facility] [address] [id number] [address] [place] [address], [place] [address] Oct, [facility] [address] [id number] [address] [place] [address], [place] [address] Sep, [facility] [address] [id number] [address] [place] [address], [place] [address] 19 Sep, 2012 [facility] [address] [id number] [address] [place] [address], [place] [address] 17 Sep, 2012 [facility] [address] [id number] [address] [place] [address], [place] [address] 14 Sep, 2012 [facility] [address] [id number] [address] [place] [address], [place] [address] 10 Sep, 2012 [facility] [address] [id number] [address] [place] [address], [place] [address] August, [facility] [address] [id number] [address] [place] [address], [place] [address] August, [facility] [address] [id number] [address] [place] [address], [place] [address] Jul, [facility] [address] [id number] [address] [place] [address], [place] [address] 19 Jul, 2012 [facility] [address] [id number] [address] [place] [address], [place] [address] 15 Jul, 2012 [facility] [address] [id number] [address] [place] [address], [place] [address] 09 Jul, 2012 [facility] [address] [id number] [address] [place] [address], [place] [address] 08 Jul, 2012 [facility] [address] [id number] [address] [place] [address], [place] [address] 26 Jun, 2012 [facility] [address] [id number] [address] [place] [address], [place] [address] 20 Jun, 2012 [facility] [address] [id number] [address] [place] [address], [place] [address] 15 Jun, 2012 [facility] [address] [id number] [address] [place] [address], [place] [address] 06 Jun, 2012 [facility] [address] [id number] [address] [place] [address] Jun, [facility] [address] [id number] [address] [place] [address], [place] [address] May, [facility] [address] [id number] [address] [place] [address], [place] [address] May, [facility] [address] [id number] [address] [place] [address], [place] [address] May, [facility] [address] [id number] [address] [place] [address], [place] [address] May, [facility] [address] [id number] [address] [place] [address], [place] [address] May, [facility] [address] [id number] [address] [place] [address], [place] [address] May, [facility] [address] [id number] [address] [place] [address], [place] [address] May, [facility] [address] [address] [id number] [address] [place] [address], [place] [address] May, [facility] [address] [id number] [address] [place] [address], [place] [address] May, [facility] [address] [id number] [address] [place] [address], [place] [address] Apr, [facility] [address] [id number] [address] [place] [address], [place] [address] Apr, [facility] [address] [id number] [address] [place] [address], [place] [address] Apr, [facility] [address] [id number] [address] [place] [address], [place] [address] Apr, [facility] [address] [id number] [address] [place] [address], [place] [address] Apr, [facility] [address] [id number] [address] [place] [address], [place] [address] Mar, [facility] [address] [id number] [address] [place] [address], [place] [address] Mar, [facility] [address] [id number] [address] [place] [address], [place] [address] Mar, [facility] [address] [id number] [address] [place] [address], [place] [address] Mar, [facility] [address] [id number] [address] [place] [address], [place] [address] Mar, [facility] [address] [id number] [address] [place] [address], [place] [address] Mar, [facility] [address] [id number] [address] [place] [address], [place] [address] Mar, [facility] [address] [id number] [address] [place] [address], [place] [address] Mar, [facility] [address] [id number] [address] [place] [address], [place] [address] Mar, [facility] [address] [id number] [address] [place] [address], [place] [address] Mar, [facility] [address] [id number] [address] [place] [address], [place] [address] Feb, [facility] [address] [id number] [address] [place] [address], [place] [address] Feb, [facility] [address] [id number] [address] [place] [address], [place] [address] Feb, [facility] [address] [id number] [address] [place] [address], [place] [address] Feb, [facility] [address] [id number] [address] [place] [address], [place] [address] Feb, [facility] [address] [id number] [address] [place] [address], [place] [address] Feb, [facility] [address] [id number] [address] [place] [address] [place] [address] 20 Feb, 2012 [facility] [address] [id number] [address] [place] [address], [place] [address] 20 Feb, 2012 [facility] [address] [id number] [address] [place] [address], [place] [address] 16 Feb, 2012 [facility] [address] [id number] [address] [place] [address], [place] [address] 16 Feb, 2012 [facility] [address] [id number] [address] [place] [address], [place] [address] 13 Feb, 2012 [facility] [address] [id number] [address] [place] [address], [place] [address] 13 Feb, 2012 [facility] [address] [id number] [address] [place] [address], [place] [address] 12 Feb, 2012 [facility] [address] [id number] [address] [place] [address], [place] [address] Feb, [facility] [address] [id number] [address] [place] [address], [place] [address] Feb, [facility] [address] [id number] [address] [place] [address], [place] [address] 08 Feb, 2012 [facility] [address] [id number] [address] [place] [address], [place] [address] Feb, [facility] [address] [id number] [address] [place] [address], [place] [address] Feb, [facility] [address] [id number] [address] [place] [address] Jan, [facility] [address] [id number] [address] [place] [address], [place] [address] Jan, [facility] [address] [id number] [address] [place] [address], [place] [address] Jan, [facility] [address] [id number] [address] [place] [address] Jan, [facility] [address] [id number] [address] [place] [address], [place] [address] Jan, [facility] [address] [id number] [address] [place] [address], [place] [address] Jan, [facility] [address] [id number] [address] [place] [address], [place] [address] Jan, [facility] [address] [id number] [address] [place] [address], [place] [address] Jan, [facility] [address] [id number] [address] [place] [address], [place] [address] Jan, [facility] [address] [id number] [address] [place] [address], [place] [address] Jan, [facility] [address] [id number] [address] [place] [address], [place] [address] Dec, [facility] [address] [id number] [address] [place] [address], [place] [address] 18 Dec, 2011 [facility] [address] [id number] [address] [place] [address], [place] [address] Dec, [facility] [address] [id number] [address] [place] [address], [place] [address] Dec, [facility] [address] [id number] [address] [place] [address], [place] [address] Nov, [facility] [address] [id number] [address] [place] [address], [place] [address] Nov, [facility] [address] [id number] [address] [place] [address], [place] [address] Nov, [facility] [address] [id number] [address] [place] [address], [place] [address] Nov, [facility] [address] [id number] [address] [place] [address], [place] [address] Nov, [facility] [address] [id number] [address] [place] [address], [place] [address] Nov, [facility] [address] [id number] [address] [place] [address], [place] [address] Oct, [facility] [address] [id number] [address] [place] [address], [place] [address] Oct, [facility] [address] [id number] [address] [place] [address], [place] [address] Oct, [facility] [address] [id number] [address] [place] [address], [place] [address] Oct, [facility] [address] [id number] [address] [place] [address], [place] [address] Oct, [facility] [address] [id number] [address] [place] [address], [place] [address] Sep, [facility] [address] [id number] [address] [place] [address], [place] [address] Sep, [facility] [address] [id number] [address] [place] [address], [place] [address] Sep, [facility] [address] [id number] [address] [place] [address], [place] [address] Sep, [facility] [address] [id number] [address] [place] [address], [place] [address] Sep, [facility] [address] [id number] [address] [place] [address], [place] [address] August, [facility] [address] [id number] [address] [place] [address], [place] [address] August, [facility] [address] [id number] [address] [place] [address], [place] [address] August, [facility] [address] [id number] [address] [place] [address], [place] [address] August, [facility] [address] [id number] [address] [place] [address], [place] [address] Jul, [facility] [address] [id number] [address] [place] [address], [place] [address] 24 Jul, 2011 [facility] [address] [id number] [address] [place] [address], [place] [address] 19 Jul, 2011 [facility] [address] [id number] [address] [place] [address], [place] [address] 18 Jul, 2011 [facility] [address] [id number] [address] [place] [address], [place] [address] 18 Jul, 2011 [facility] [address] [id number] [address] [place] [address], [place] [address] 12 Jul, 2011 [facility] [address] [id number] [address] [place] [address], [place] [address] 11 Jul, 2011 [facility] [address] [id number] [address] [place] [address], [place] [address] 10 Jul, 2011 [facility] [address] [id number] [address] [place] [address], [place] [address] Jul, [facility] [address] [id number] [address] [place] [address], [place] [address] 07 Jul, 2011 [facility] [address] [id number] [address] [place] [address], [place] [address] 05 Jul, 2011 [facility] [address] [id number] [address] [place] [address], [place] [address] 03 Jul, 2011 [facility] [address] [id number] [address] [place] [address], [place] [address] Jul, [facility] [address] [id number] [address] [place] [address], [place] [address] Jul, [facility] [address] [id number] [address] [place] [address], [place] [address] 28 Jun, 2011 [facility] [address] [id number] [address] [place] [address], [place] [address] 27 Jun, 2011 [facility] [address] [id number] [address] [place] [address], [place] [address] 20 Jun, 2011 [facility] [address] [id number] [address] [place] [address], [place] [address] 16 Jun, 2011 [facility] [address] [id number] [address] [place] [address], [place] [address] 27 May, 2011 [facility] [address] [id number] [address] [place] [address], [place] [address] 16 May, 2011 [facility] [address] [id number] [address] [place] [address], [place] [address] May, [facility] [address] [id number] [address] [place] [address], [place] [address] Apr, [facility] [address] [id number] [address] [place] [address], [place] [address] Apr, [facility] [address] [id number] [address] [place] [address], [place] [address] Apr, [facility] [address] [id number] [address] [place] [address], [place] [address] Apr, [facility] [address] [id number] [address] [place] [address], [place] [address] Apr, [facility] [address] [id number] [address] [place] [address], [place] [address] Mar, [facility] [address] [id number] [address] [place] [address], [place] [address] Mar, [facility] [address] [id number] [address] [place] [address], [place] [address] Mar, [facility] [address] [id number] [address] [place] [address], [place] [address] Mar, [facility] [address] [id number] [address] [place] [address], [place] [address] Mar, [facility] [address] [id number] [address] [place] [address], [place] [address] 09 Mar, 2011 [facility] [address] [id number] [address] [place] [address] 05 Mar, 2011 [facility] [address] [id number] [address] [place] [address], [place] [address] 29 Feb, 2011 [facility] [address] [id number] [address] [place] [address] 25 Feb, 2011 [facility] [address] [id number] [address] [place] [address], [place] [address] Feb, [facility] [address] [id number] [address] [place] [address], [place] [address] 22 Feb, 2011 [facility] [address] [id number] [address] [place] [address], [place] [address] 16 Feb, 2011 [facility] [address] [id number] [address] [place] [address], [place] [address] 14 Feb, 2011 [facility] [address] [id number] [address] [place] [address] 10 Feb, 2011 [facility] [address] [id number] [address] [place] [address], [place] [address] 31 Jan, 2011 [facility] [address] [id number] [address] [place] [address] 31 Jan, 2011 [facility] [address] [id number] [address] [place] [address] 31 Jan, 2011 [facility] [address] [id number] [address] [place] [address] 18 Jan, 2011 [facility] [address] [id number] [address] [place] [address] 17 Jan, 2011 [facility] [address] [id number] [address] [place] [address] 17 Jan, 2011 [facility] [address] [id number] [address] [place] [address] 17 Jun, 2010 [facility] [address] [id number] [address] [place] [address] 30 Mar, 2010 [facility] [address] [id number] [address] [place] [address], [place] [address] 20 Mar, 2010 [facility] [address] [id number] [address] [place] [address], [place] [address] 14 Mar, 2010 [facility] [address] [id number] [address] [place] [address], [place] [address] 14 Mar, 2010 [facility] [address] [id number] [address] [place] [address], [place] [address] 13 Mar, 2010 [facility] [address] [id number] [address] [place] [address], [place] [address] 07 Mar, 2010 [facility] [address] [id number] [address] [place] [address], [place] [address] 02 Mar, 2010 [facility] [address] [id number] [address] [place] [address], [place] [address] Mar, [facility] [address] [id number] [address] [place] [address], [place] [address] 30 Feb, 2010 [facility] [address] [id number] [address] [place] [address], [place] [address] 29 Feb, 2010 [facility] [address] [id number] [address] [place] [address], [place] [address] 17 Feb, 2010 [facility] [address] [id number] [address] [place] [address], [place] [address] 17 Feb, 2010 [facility] [address] [id number] [address] [place] [address], [place] [address] 16 Feb, 2010 [facility] [address] [id number] [address] [place] [address], [place] [address] 08 Feb, 2010 [facility] [address] [id number] [address] [place] [address], [place] [address] 04 Feb, 2010 [facility] [address] [id number] [address] [place] [address], [place] [address] Feb, [facility] [address] [id number] [address] [place] [address] [address] Jan, [facility] [address] [id number] [address] [place] [address] Jan, [facility] [address] [id number] [address] [place] [address] Jan, [facility] [address] [id number] [address] [place] [address] Jan, [facility] [address] [id number] [address] [place] [address] Mar, [facility] [address] [id number] [address] [place] [address] Mar, [facility] [address] [id number] [address] [place] [address] Mar, [facility] [address] [id number] [address] [place] [address] Mar, [facility] [address] [id number] [address] [place] [address] 14 Mar, 2009 [facility] [address] [id number] [address] [place] [address] Mar, [facility] [address] [id number] [address] [place] [address] Feb, [facility] [address] [id number] [address] [place] [address] Feb, [facility] [address] [id number] [address] [place] [address] Jan, [facility] [address] [id number] [address] [place] [address] Sep, [facility] [address] [id number] [address] [place] [address] May, IMMUNIZATIONS No Known Immunizations SOCIAL HISTORY [...] Surgical History Left ear surgery Hospitalization History [facility] in [place]- Spontane ous Pneumothorax Hospitalization History [facility]- Colon resection Hospitalization History [facility] - diarrhea/ couldnt urin ate nov 2017 Hospitalization History pain /hip to foot right side 10/16/19 19
--- OUTSIDE RECORDS SUMMARY | 2019-08-28 09:12 | XMS REPORT ---
Author Author Dixon Lundberg Doctor Organization [facility] Address Unknown Phone Unavailable Care Team Providers Care Saloon Keeper Name Role Phone Migration, Doctor Unavailable Unavailable PROBLEMS Type Condition ICD9-CM Code HVQ36-LY Code Onset Dates Condition S tatus SNOMED Code Problem Insomnia G47.00 Active 517245474 Problem Anxiety F41.9 Active 57493228 Problem HTN (hypertension) I10 Active 3 4514035 Problem Hyperlipidemia E78.5 Active 04013 004 Problem Thoracic back pain, unspecif ied back pain laterality, unspecified chronicity M54.6 Active 904414122 Problem Vitamin D deficiency E55.9 Active 73204525 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 86925819 Problem Chronic pain G89.29 Active 4314873 1 Problem Schizophrenia, unspecified type F20.9 Active 43714792 Problem Constipation K59.00 Active 2021886 8 Problem Environmental allergies Z91.09 Active 128220013 Problem Primary insomnia F51.01 Active 397 2004 Problem Chronic kidney disease, stage III (moderate) N18.3 Active 848638959 Problem Vision loss H54.7 Active 28504521 1 ALLERGIES No Information ENCOUNTERS Encounter Location Date Diagnosis [place] [address] [facility] [id number] [address] [place] [id number] Oct, [facility] [address] [facility] [id number] [address] [place] [phone] Oct, Anxiety F41.9 and Thoracic b ack pain, unspecified back pain laterality, unspecified chronicity M54.6 [place] [address] [address] [facility] [id number] [address] [place] [id number] Oct, Schizophrenia, unspecified t ype F20.9 and Acute kidney injury N17.9 [facility] [address] [facility] [id number] [address] [place] [id number] Oct, [place] [address] [place] [id number] [address] [place] [phone] Oct, [facility] [address] [id number] [address] [place] [address] Oct, Thoracic back pain, unspecif ied back pain laterality, unspecified chronicity M54.6 [facility] [address] [id number] [address] [place] [phone] Oct, [facility] [address] [id number] [address] [place] [phone] Oct, [facility] [address] [id number] [address] [place] [phone] Sep, Anxiety F41.9 [facility] [address] [id number] [address] [place] [phone] Sep, [facility] [address] [id number] [address] [place] [phone] Sep, Thoracic back pain, unspecif ied back pain laterality, unspecified chronicity M54.6 [facility] [address] [id number] [address] [place] [phone] Sep, [facility] [address] [id number] [address] [place] [phone] Sep, [facility] [address] [id number] [address] [place] [address] Sep, [facility] [address] [id number] [address] [place] [phone] Sep, [facility] [address] [id number] [address] [place] [phone] Sep, [facility] [address] [id number] [address] [place] [phone] Sep, [facility] [address] [id number] [address] [place] [id number] 10 Sep, 2018 Chronic pain G89.29 ; Chroni c kidney disease, stage III (moderate) N18.3 ; Hyperlipidemia E78.5 and Insomnia G47.00 [facility] [address] [id number] [address] [place] [phone] Sep, Thoracic back pain, unspecif ied back pain laterality, unspecified chronicity M54.6 [facility] [address] [id number] [address] [place] [phone] August, Anxiety F41.9 [facility] [address] [id number] [address] [place] [phone] August, Thoracic back pain, unspecif ied back pain laterality, unspecified chronicity M54.6 and Anxiety F41.9 [facility] [address] [id number] [address] [place] [phone] August, 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 [facility] [address] [id number] [address] [place] [id number] August, 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 [facility] [address] [id number] [address] [place] [id number] August, [facility] [address] [id number] [address] [place] [id number] August, [facility] [address] [id number] [address] [place] [phone] August, Thoracic back pain, unspecif ied back pain laterality, unspecified chronicity M54.6 [facility] [address] [id number] [address] [place] [id number] August, [facility] [address] [id number] [address] [place] [phone] August, Anxiety F41.9 and Thoracic b ack pain, unspecified back pain laterality, unspecified chronicity M54.6 [facility] [address] [id number] [address] [place] [id number] Jul, [facility] [address] [id number] [address] [place] [id number] Jul, Thoracic back pain, unspecif ied back pain laterality, unspecified chronicity M54.6 [facility] [address] [id number] [address] [place] [phone] Jun, Anxiety F41.9 and Thoracic b ack pain, unspecified back pain laterality, unspecified chronicity M54.6 [facility] [address] [id number] [address] [place] [address] Jun, Anxiety F41.9 and Thoracic b ack pain, unspecified back pain laterality, unspecified chronicity M54.6 [facility] [address] [id number] [address] [place] [address] Jun, Thoracic back pain, unspecif ied back pain laterality, unspecified chronicity M54.6 [facility] [address] [facility] [id number] [address] [place] [address] Jun, Anxiety F41.9 and Thoracic b ack pain, unspecified back pain laterality, unspecified chronicity M54.6 [facility] [address] [id number] [address] [place] [id number] May, [facility] [address] [id number] [address] [place] [phone] May, [facility] [address] [facility] [id number] [address] [place] [address] May, [facility] [address] [id number] [address] [place] [address] May, Anxiety F41.9 and Encounter for medication monitoring Z51.81 [facility] [address] [id number] [address] [place] [address] May, Anxiety F41.9 and Thoracic b ack pain, unspecified back pain laterality, unspecified chronicity M54.6 [facility] [address] [facility] [id number] [address] [place] [address] Apr, Hyperlipidemia 272.4 [facility] [address] [id number] [address] [place] [address] Apr, Chronic pain G89.29 ; Anxiet y F41.9 ; Cervical radiculopathy M54.12 and Vision loss H54.7 [facility] [address] [id number] [address] [place] [address] Apr, [place] [address] [id number] [address] [place] [id number] Apr, Anxiety F41.9 and Thoracic b ack pain, unspecified back pain laterality, unspecified chronicity M54.6 [place] [address] [id number] [address] [place] [phone] Mar, [place] [address] [facility] [id number] [address] [place] [id number] Mar, Anxiety F41.9 and Thoracic b ack pain, unspecified back pain laterality, unspecified chronicity M54.6 [place] [address] [facility] [id number] [address] [place] [id number] Feb, Anxiety F41.9 and Thoracic b ack pain, unspecified back pain laterality, unspecified chronicity M54.6 [place] [address] [facility] [id number] [address] [place] [id number] Feb, Thoracic back pain, unspecif ied back pain laterality, unspecified chronicity M54.6 [place] [address] [id number] [address] [place] [id number] Jan, [place] [address] [id number] [address] [place] [id number] Jan, Anxiety F41.9 and Thoracic b ack pain, unspecified back pain laterality, unspecified chronicity M54.6 [place] [address] [facility] [id number] [address] [place] [address] Dec, Diarrhea of presumed infecti ous origin R19.7 [place] [facility] [id number] [address] [place] [id number] 19 Dec, 2017 Diarrhea of presumed infecti ous origin R19.7 [facility] [address] [id number] [address] [place] [id number] 18 Dec, 2017 Thoracic back pain, unspecif ied back pain laterality, unspecified chronicity M54.6 [facility] [address] [id number] [address] [place] [id number] 17 Dec, 2017 [facility] [address] [id number] [address] [place] [id number] 17 Dec, 2017 Anxiety F41.9 and Thoracic b ack pain, unspecified back pain laterality, unspecified chronicity M54.6 [place] [address] [id number] [address] [place] [id number] 13 Dec, 2017 Diarrhea of presumed infecti ous origin R19.7 [place] [address] [id number] [address] [place] [id number] Dec, [place] [address] [id number] [address] [place] [address] Dec, Anxiety F41.9 and Thoracic b ack pain, unspecified back pain laterality, unspecified chronicity M54.6 [place] [address] [id number] [address] [place] [address] 12 Dec, 2017 Anxiety F41.9 and Thoracic b ack pain, unspecified back pain laterality, unspecified chronicity M54.6 [facility] [address] [place] [id number] Dec, Diarrhea of presumed infectious origin R 19.7 ; Anxiety F41.9 ; Thoracic back pain, unspecified back pain laterality, unspecified chronicity M54.6 and HTN (hypertension) I10 [place] [address] [id number] [address] [place] [id number] 05 Dec, 2017 Anxiety F41.9 [facility] [address] [place] [id number] Dec, Anxiety F41.9 ; Diarrhea of presumed inf ectious origin R19.7 ; Generalized abdominal pain R10.84 and Localized edema R60.0 [place] [address] [address] Nov, Via [facility] [address] [place] [id number] Nov, Anxiety F41.9 ; Urinary retention R33.9 ; Diarrhea of presumed infectious origin R19.7 ; Weakness R53.1 ; Acute kidney failure, unspecified N17.9 ; Chronic kidney disease, stage III (moderate) N18.3 and Thoracic back pain, unspecified back pain laterality, unspecified chronicity M54.6 [place] [address] [address] Oct, Thoracic back pain, unspecif ied back pain laterality, unspecified chronicity M54.6 and Anxiety F41.9 [place] [address] [id number] Sep, Thoracic back pain, unspecif ied back pain laterality, unspecified chronicity M54.6 and Anxiety F41.9 [place] [address] [address] Sep, Thoracic back pain, unspecif ied back pain laterality, unspecified chronicity M54.6 ; Anxiety F41.9 and Encounter for medication monitoring Z51.81 [place] [address] [address] August, [place] [address] [address] August, Thoracic back pain, unspecif ied back pain laterality, unspecified chronicity M54.6 and Anxiety F41.9 [place] [address] [address] August, Hyperlipidemia E78.5 and HTN (hypertension) I10 [place] [address] [address] August, [facility] [address] [facility] [id number] [address] [place] [address] August, Medicare welcome exam Z00.00 ; Chronic kidney failure N18.9 ; Anxiety F41.9 ; Chronic pain G89.29 ; Insomnia G47.00 ; Hyperlipidemia E78.5 ; HTN (hypertension) I10 and Thoracic back pain, unspecified back pain laterality, unspecified chronicity M54.6 [place] [address] [facility] [id number] [address] [place] [address] Jul, [place] [address] [facility] [id number] [address] [place] [address] Jul, [place] [address] [facility] [id number] [address] [place] [address] Jul, [place] [address] [place] [id number] [place] [address] Jul, Anxiety F41.9 [place] [address] [place] [id number] [address] [place] [address] Jul, Thoracic back pain, unspecif ied back pain laterality, unspecified chronicity M54.6 and Anxiety F41.9 [place] [address] [place] [id number] [address] [place] [address] Jun, Thoracic back pain, unspecif ied back pain laterality, unspecified chronicity M54.6 and Anxiety F41.9 [place] [address] [facility] [id number] [address] [place] [id number] May, Thoracic back pain, unspecif ied back pain laterality, unspecified chronicity M54.6 and Anxiety F41.9 [place] [address] [place] [id number] [address] [place] [address] Apr, Thoracic back pain, unspecif ied back pain laterality, unspecified chronicity M54.6 and Anxiety F41.9 [place] [address] [place] [id number] [address] [place] [address] Mar, [place] [address] [facility] [id number] [address] [place] [address] Mar, Thoracic back pain, unspecif ied back pain laterality, unspecified chronicity M54.6 and Anxiety F41.9 [place] [address] [facility] [id number] [address] [place] [address] Mar, Thoracic back pain, unspecif ied back pain laterality, unspecified chronicity M54.6 ; HTN (hypertension) I10 ; Hyperlipidemia E78.5 and Anxiety F41.9 [place] [address] [facility] [id number] [address] [place] [address] Feb, Thoracic back pain, unspecif ied back pain laterality, unspecified chronicity M54.6 and Anxiety F41.9 [place] [address] [place] [id number] [address] [place] [address] Nov, [place] [id number] [place] [address] Oct, [place] [address] [place] [id number] [address] [place] [address] Oct, Thoracic back pain, unspecif ied back pain laterality, unspecified chronicity M54.6 [place] [address] [place] [id number] [address] [place] [address] Oct, HTN (hypertension) I10 ; Con stipation K59.00 ; Hyperlipidemia E78.5 ; Thoracic back pain, unspecified back pain laterality, unspecified chronicity M54.6 ; Chronic pain G89.29 ; Anxiety F41.9 ; Chronic kidney failure N18.9 ; Environmental allergies Z91.09 ; Vitamin D deficiency E55.9 and Primary insomnia F51.01 [place] [address] [place] [id number] [address] [place] [address] Sep, Anxiety F41.9 [place] [address] [place] [id number] [address] [place] [address] Sep, [place] [address] [place] [id number] [address] [place] [address] August, Anxiety F41.9 [facility] [address] [id number] [address] [place] [address] August, [facility] [address] [facility] [id number] [address] [place] [address] Jul, Anxiety F41.9 [facility] [address] [id number] [address] [place] [address] Jul, [facility] [address] [id number] [address] [place] [address] Jun, Anxiety F41.9 [facility] [address] [id number] [address] [place] [address] Jun, [facility] [address] [facility] [id number] [address] [place] [address] May, [facility] [address] [facility] [id number] [address] [place] [address] May, [facility] [address] [facility] [id number] [address] [place] [address] May, [facility] [address] [facility] [id number] [address] [place] [address] Apr, [facility] [address] [facility] [id number] [address] [place] [address] Apr, [facility] [address] [facility] [id number] [address] [place] [address] Apr, Anxiety F41.9 [facility] [address] [facility] [id number] [address] [place] [address] Apr, Anxiety F41.9 [facility] [address] [facility] [id number] [address] [place] [address] Apr, [facility] [address] [facility] [id number] [address] [place] [address] Mar, HTN (hypertension) I10 ; Phillip mor R25.1 ; Hypercholesterolemia E78.0 ; Constipation K59.00 ; Chronic pain G89.29 ; Hyperlipidemia E78.5 ; Insomnia G47.00 ; Anxiety F41.9 and Thoracic back pain, unspecified back pain laterality, unspecified chronicity M54.6 [facility] [address] [facility] [id number] [address] [place] [address] Mar, Tremor R25.1 ; HTN (hyperten stas) I10 ; Hypercholesterolemia E78.0 ; Constipation K59.00 ; Chronic pain G89.29 ; Hyperlipidemia E78.5 ; Insomnia G47.00 ; Anxiety F41.9 and Thoracic back pain, unspecified back pain laterality, unspecified chronicity M54.6 [facility] [address] [facility] [id number] [address] [place] [address] Mar, [facility] [address] [place] [id number] [address] [place] [address] Mar, [facility] [address] [place] [id number] [address] [place] [address] Feb, [facility] [address] [facility] [id number] [address] [place] [address] Jan, [facility] [address] [place] [id number] [address] [place] [address] Jan, [facility] [address] [facility] [id number] [address] [place] [address] Dec, [facility] [address] [facility] [id number] [address] [place] [address] Nov, [facility] [address] [id number] [address] [place] [address] Nov, [facility] [address] [facility] [id number] [address] [place] [id number] Oct, Anxiety F41.9 [facility] [address] [facility] [id number] [address] [place] [address] Oct, Chronic pain G89.29 [facility] [address] [facility] [id number] [address] [place] [address] 24 Sep, 2015 [facility] [address] [facility] [id number] [address] [place] [id number] Sep, [facility] [address] [facility] [id number] [address] [place] [phone] Sep, [facility] [address] [facility] [id number] [address] [place] [address] Sep, [facility] [address] [facility] [id number] [address] [place] [id number] 16 Sep, 2015 Chronic pain syndrome G89.4 [facility] [address] [facility] [id number] [address] [place] [address] Sep, HTN (hypertension) I10 ; Chr onic pain G89.29 ; Hypercholesterolemia E78.0 ; Chronic kidney failure N18.9 ; Constipation, unspecified constipation type K59.00 ; Anxiety F41.9 and Thoracic back pain, unspecified back pain laterality, unspecified chronicity M54.6 [facility] [address] [facility] [id number] [address] [place] [id number] August, Chronic pain syndrome G89.4 [facility] [address] [facility] [id number] [address] [place] [address] August, Chronic pain syndrome G89.4 [facility] [address] [facility] [id number] [address] [place] [phone] Jul, Anxiety disorder, unspecifie d F41.9 and Chronic pain syndrome G89.4 [facility] [address] [facility] [id number] [address] [place] [address] Jul, Insomnia, unspecified G47.00 and Chronic pain syndrome G89.4 [facility] [address] [facility] [id number] [address] [place] [id number] Jul, Allergic rhinitis J30.9 [facility] [address] [facility] [id number] [address] [place] [id number] Jul, Constipation, unspecified K5 9.00 [facility] [address] [id number] [address] [place] [id number] Jul, [facility] [address] [id number] [address] [place] [id number] Jun, [facility] [address] [facility] [id number] [address] [place] [id number] Jun, [facility] [address] [id number] [address] [place] [id number] Jun, [facility] [address] [id number] [address] [place] [id number] Jun, [facility] [address] [facility] [id number] [address] [place] [id number] Jun, [facility] [address] [facility] [id number] [address] [place] [id number] Jun, [facility] [address] [facility] [id number] [address] [place] [id number] May, [facility] [address] [facility] [id number] [address] [place] [id number] May, [facility] [address] [facility] [id number] [address] [place] [id number] May, Anxiety F41.9 ; Insomnia G47 .00 ; Hyperlipidemia E78.5 ; Chronic pain G89.29 ; HTN (hypertension) I10 ; Environmental allergies V15.09 and Constipation 564.00 [facility] [address] [facility] [id number] [address] [place] [id number] Apr, [facility] [address] [facility] [id number] [address] [place] [id number] Apr, [facility] [facility] [address] [facility] [id number] [address] [place] [id number] Apr, [facility] [address] [facility] [id number] [address] [place] [phone] Mar, [facility] [address] [id number] [address] [place] [phone] Mar, [facility] [id number] [place] [phone] Mar, [facility] [id number] [place] [id number] Feb, [facility] [address] [id number] Feb, [facility] [id number] [place] [id number] Feb, [facility] [address] [id number] Jan, HTN (hypertension) I10 ; Con stipation K59.00 ; Chronic pain G89.29 ; Hyperlipidemia E78.5 ; Hypercholesterolemia E78.0 ; Insomnia G47.00 and Anxiety F41.9 [facility] [address] [id number] Jan, [facility] [address] [id number] Dec, [facility] [address] [id number] Nov, [facility] [address] [id number] Oct, Chronic kidney disease, unsp ecified 585.9 ; Chronic pain syndrome 338.4 ; Hyperlipidemia 272.4 and Essential hypertension 401.9 [facility] [address] [id number] [address] [place] [phone] Oct, Chronic kidney disease 585.9 [facility] [address] [id number] [address] [place] [phone] Oct, [facility] [address] [id number] Oct, Chronic kidney disease, unsp ecified 585.9 ; Hypercalcemia 275.42 ; Hyperlipidemia 272.4 ; Essential hypertension 401.9 ; Chronic pain syndrome 338.4 ; Insomnia 780.52 ; Constipation 564.00 ; Environmental allergies V15.09 and Anxiety 300.00 [facility] [address] [id number] [address] [place] [phone] Oct, Chronic kidney disease 585.9 [facility] [address] [id number] [address] [place] [phone] Oct, [facility] [address] [facility] [id number] [address] [place] [id number] Oct, Chronic kidney disease 585.9 and Hyperlipidemia 272.4 [facility] [address] [facility] [id number] [address] [place] [phone] Oct, [facility] [address] [facility] [id number] [address] [place] [id number] Oct, [facility] [address] [facility] [id number] [address] [place] [phone] Sep, [facility] [address] [facility] [id number] [address] [place] [phone] Sep, [facility] [address] [facility] [id number] [address] [place] [phone] Sep, Chronic kidney disease 585.9 and Hyperlipidemia 272.4 [facility] [address] [facility] [id number] [address] [place] [phone] Sep, [facility] [address] [facility] [id number] [address] [place] [phone] August, [facility] [address] [id number] [address] [place] [phone] August, [facility] [address] [facility] [id number] [address] [place] [phone] Jul, [facility] [address] [facility] [id number] [address] [place] [phone] Jul, [facility] [address] [id number] [address] [place] [address], [place] [id number] Jun, [facility] [address] [id number] [address] [place] [address], [place] [id number] Jun, [facility] [address] [id number] [address] [place] [address], [place] [id number] Jun, [facility] [address] [id number] [address] [place] [address], [place] [id number] Jun, [facility] [address] [id number] [address] [place] [address], [place] [id number] Jun, [facility] [address] [id number] [address] [place] [address], [place] [id number] Jun, [facility] [address] [id number] [address] [place] [address], [place] [id number] Jun, [facility] [address] [id number] [address] [place] [phone] Jun, [facility] [address] [id number] [address] [place] [address], [place] [id number] May, [facility] [address] [id number] [address] [place] [address], [place] [id number] May, [facility] [address] [id number] [address] [place] [address], [place] [id number] May, [facility] [address] [id number] [address] [place] [id number] May, [facility] [address] [id number] [address] [place] [address], [place] [id number] Apr, [facility] [address] [id number] [address] [place] [address], [place] [id number] Apr, [facility] [address] [id number] [address] [place] [address], [place] [id number] Apr, [facility] [address] [id number] [address] [place] [address], [place] [id number] Apr, [facility] [address] [id number] [address] [place] [address], [place] [id number] Apr, [facility] [address] [id number] [address] [place] [address], [place] [id number] Apr, [facility] [address] [id number] [address] [place] [address], [place] [id number] Apr, [facility] [address] [id number] [address] [place] [address], [place] [id number] Apr, [facility] [address] [id number] [address] [place] [address], [place] [id number] Apr, [facility] [address] [id number] [address] [place] [address], [place] [id number] Apr, [facility] [address] [id number] [address] [place] [address], [place] [id number] Apr, [facility] [address] [id number] [address] [place] [address], [place] [id number] Mar, [facility] [address] [id number] [address] [place] [address], [place] [id number] Mar, [facility] [address] [id number] [address] [place] [address], [place] [id number] Feb, [facility] [address] [id number] [address] [place] [address], [place] [id number] Feb, [facility] [address] [id number] [address] [place] [address], [place] [id number] Feb, [facility] [address] [id number] [address] [place] [address], [place] [id number] Feb, [facility] [address] [id number] [address] [place] [address], [place] [id number] 17 Feb, 2014 [facility] [address] [id number] [address] [place] [address], [place] [id number] Feb, [facility] [address] [id number] [address] [place] [address], [place] [id number] Feb, [facility] [address] [id number] [address] [place] [address], [place] [id number] Feb, [facility] [address] [id number] [address] [place] [address], [place] [id number] Feb, [facility] [address] [id number] [address] [place] [address], [place] [id number] Feb, [facility] [address] [id number] [address] [place] [address], [place] [id number] Jan, [facility] [address] [id number] [address] [place] [address], [place] [id number] Jan, [facility] [address] [id number] [address] [place] [address], [place] [id number] Jan, [facility] [address] [id number] [address] [place] [phone] Jan, [facility] [address] [id number] [address] [place] [phone] Jan, [facility] [address] [id number] [address] [place] [id number] Jan, [facility] [address] [id number] [address] [place] [phone] Jan, [facility] [address] [id number] [address] [place] [phone] Jan, [facility] [address] [id number] [address] [place] [address], [place] [id number] Jan, [facility] [address] [id number] [address] [place] [phone] Jan, [facility] [address] [id number] [address] [place] [phone] Jan, [facility] [address] [id number] [facility] [id number] 26 Dec, 2013 [facility] [address] [id number] [address] [place] [address], [place] [id number] 26 Dec, 2013 [facility] [address] [id number] [address] [place] [address], [place] [id number] 19 Dec, 2013 [facility] [address] [id number] [address] [place] [address], [place] [id number] 19 Dec, 2013 [facility] [address] [id number] [address] [place] [address], [place] [id number] 18 Dec, 2013 [facility] [address] [id number] [address] [place] [address], [place] [id number] 18 Dec, 2013 [facility] [address] [id number] [address] [place] [address], [place] [id number] Dec, 2013 [facility] [address] [id number] [address] [place] [address], [place] [id number] Dec, 2013 [facility] [address] [id number] [address] [place] [address], [place] [id number] Nov, [facility] [address] [id number] [address] [place] [address], [place] [id number] Nov, [facility] [address] [id number] [address] [place] [address], [place] [id number] Nov, [facility] [address] [id number] [address] [place] [address], [place] [id number] Nov, [facility] [address] [id number] [address] [place] [address], [place] [id number] Nov, [facility] [address] [id number] [address] [place] [address], [place] [id number] Nov, [facility] [address] [id number] [address] [place] [address], [place] [id number] Nov, [facility] [address] [id number] [address] [place] [address], [place] [id number] Nov, [facility] [address] [id number] [address] [place] [address], [place] [id number] Oct, [facility] [address] [id number] [address] [place] [address], [place] [id number] Oct, [facility] [address] [id number] [address] [place] [address], [place] [id number] Oct, [facility] [address] [id number] [address] [place] [address], [place] [id number] Oct, [facility] [address] [id number] [address] [place] [address], [place] [id number] Sep, [facility] [address] [id number] [address] [place] [address], [place] [id number] Sep, [facility] [address] [id number] [address] [place] [address], [place] [id number] Sep, [facility] [address] [id number] [address] [place] [address], [place] [id number] Sep, [facility] [address] [id number] [address] [place] [address], [place] [id number] Sep, [facility] [address] [id number] [address] [place] [address], [place] [id number] Sep, [facility] [address] [id number] [address] [place] [address], [place] [id number] Sep, [facility] [address] [id number] [address] [place] [address], [place] [id number] Sep, [facility] [address] [id number] [address] [place] [address], [place] [id number] August, [facility] [address] [id number] [address] [place] [address], [place] [id number] August, [facility] [address] [id number] [address] [place] [address], [place] [id number] August, [facility] [address] [id number] [address] [place] [address], [place] [id number] August, [facility] [address] [id number] [address] [place] [address], [place] [id number] August, [facility] [address] [id number] [address] [place] [address], [place] [id number] August, [facility] [address] [id number] [address] [place] [address], [place] [id number] August, [facility] [address] [id number] [address] [place] [address], [place] [id number] August, [facility] [address] [id number] [address] [place] [address], [place] [id number] August, [facility] [address] [id number] [address] [place] [address], [place] [id number] August, [facility] [address] [id number] [address] [place] [address], [place] [id number] Jul, [facility] [address] [id number] [address] [place] [address], [place] [id number] Jul, [facility] [address] [id number] [address] [place] [address], [place] [id number] Jul, [facility] [address] [id number] [address] [place] [address], [place] [id number] Jul, [facility] [address] [id number] [address] [place] [address], [place] [id number] Jul, [facility] [address] [id number] [address] [place] [address], [place] [id number] Jul, [facility] [address] [id number] [address] [place] [address], [place] [id number] Jul, [facility] [address] [id number] [address] [place] [address], [place] [id number] Jul, [facility] [address] [id number] [address] [place] [address], [place] [id number] Jun, [facility] [address] [id number] [address] [place] [address], [place] [id number] Jun, [facility] [address] [id number] [address] [place] [address], [place] [id number] Jun, [facility] [address] [id number] [address] [place] [address], [place] [id number] Jun, [facility] [address] [id number] [address] [place] [address], [place] [id number] Jun, [facility] [address] [id number] [address] [place] [address], [place] [id number] Jun, [facility] [address] [id number] [address] [place] [address], [place] [id number] May, [facility] [address] [id number] [address] [place] [address], [place] [id number] May, [facility] [address] [id number] [address] [place] [address], [place] [id number] May, [facility] [address] [id number] [address] [place] [address], [place] [id number] May, [facility] [address] [id number] [address] [place] [address], [place] [id number] May, [facility] [address] [id number] [address] [place] [address], [place] [id number] May, [facility] [address] [id number] [address] [place] [address], [place] [id number] May, [facility] [address] [id number] [address] [place] [address], [place] [id number] Apr, [facility] [address] [id number] [address] [place] [address], [place] [id number] Apr, [facility] [address] [id number] [address] [place] [address], [place] [id number] Apr, [facility] [address] [id number] [address] [place] [address], [place] [id number] 14 Apr, 2013 [facility] [address] [id number] [address] [place] [address], [place] [id number] Apr, [facility] [address] [id number] [address] [place] [address], [place] [id number] 10 Apr, 2013 [facility] [address] [id number] [address] [place] [address], [place] [id number] Mar, [facility] [address] [id number] [address] [place] [address], [place] [id number] Mar, [facility] [address] [id number] [address] [place] [address], [place] [id number] Mar, [facility] [address] [id number] [address] [place] [address], [place] [id number] Mar, [facility] [address] [id number] [address] [place] [address], [place] [id number] Mar, [facility] [address] [id number] [address] [place] [address], [place] [id number] Mar, [facility] [address] [id number] [address] [place] [address], [place] [id number] 16 Mar, 2013 [facility] [address] [id number] [address] [place] [address], [place] [id number] 16 Mar, 2013 [facility] [address] [id number] [address] [place] [address], [place] [id number] Mar, [facility] [address] [id number] [address] [place] [address], [place] [id number] Mar, [facility] [address] [id number] [address] [place] [address], [place] [id number] Feb, [facility] [address] [id number] [address] [place] [address], [place] [id number] Feb, [facility] [address] [id number] [address] [place] [address], [place] [id number] Feb, [facility] [address] [id number] [address] [place] [address], [place] [id number] 25 Feb, 2013 [facility] [address] [id number] [address] [place] [address], [place] [id number] Feb, [facility] [address] [id number] [address] [place] [address], [place] [id number] Feb, [facility] [address] [id number] [address] [place] [address], [place] [id number] Feb, [facility] [address] [id number] [address] [place] [address], [place] [id number] Feb, [facility] [address] [id number] [address] [place] [address], [place] [id number] Feb, [facility] [address] [id number] [address] [place] [address], [place] [id number] Feb, [facility] [address] [id number] [address] [place] [address], [place] [id number] Jan, [facility] [address] [id number] [address] [place] [address], [place] [id number] Jan, [facility] [address] [id number] [address] [place] [address], [place] [id number] Jan, [facility] [address] [id number] [address] [place] [address], [place] [id number] Jan, [facility] [address] [id number] [address] [place] [address], [place] [id number] Jan, [facility] [address] [id number] [address] [place] [address], [place] [id number] Jan, [facility] [address] [id number] [address] [place] [address], [place] [id number] 17 Jan, 2013 [facility] [address] [id number] [address] [place] [address], [place] [id number] Jan, [facility] [address] [id number] [address] [place] [address], [place] [id number] Jan, [facility] [address] [id number] [address] [place] [address], [place] [id number] Dec, [facility] [address] [id number] [address] [place] [address], [place] [id number] Dec, [facility] [address] [id number] [address] [place] [address], [place] [id number] Dec, [facility] [address] [id number] [address] [place] [address], [place] [id number] Dec, [facility] [address] [id number] [address] [place] [address], [place] [id number] Nov, [facility] [address] [id number] [address] [place] [address], [place] [id number] Nov, [facility] [address] [id number] [address] [place] [address], [place] [id number] Nov, [facility] [address] [id number] [address] [place] [address], [place] [id number] Nov, [facility] [address] [id number] [address] [place] [address], [place] [id number] Nov, [facility] [address] [id number] [address] [place] [address], [place] [id number] Nov, [facility] [address] [id number] [address] [place] [address], [place] [id number] Oct, [facility] [address] [id number] [address] [place] [address], [place] [id number] Oct, [facility] [address] [id number] [address] [place] [address], [place] [id number] Oct, [facility] [address] [id number] [address] [place] [address], [place] [id number] Oct, [facility] [address] [id number] [address] [place] [address], [place] [id number] Sep, [facility] [address] [id number] [address] [place] [address], [place] [id number] 19 Sep, 2012 [facility] [address] [id number] [address] [place] [address], [place] [id number] 17 Sep, 2012 [facility] [address] [id number] [address] [place] [address], [place] [id number] 14 Sep, 2012 [facility] [address] [id number] [address] [place] [address], [place] [id number] 10 Sep, 2012 [facility] [address] [id number] [address] [place] [address], [place] [id number] August, [facility] [address] [id number] [address] [place] [address], [place] [id number] August, [facility] [address] [id number] [address] [place] [address], [place] [id number] Jul, [facility] [address] [id number] [address] [place] [address], [place] [id number] Jul, [facility] [address] [id number] [address] [place] [address], [place] [id number] 15 Jul, 2012 [facility] [address] [id number] [address] [place] [address], [place] [id number] 09 Jul, 2012 [facility] [address] [id number] [address] [place] [address], [place] [id number] 08 Jul, 2012 [facility] [address] [id number] [address] [place] [address], [place] [id number] Jun, [facility] [address] [id number] [address] [place] [address], [place] [id number] Jun, [facility] [address] [id number] [address] [place] [address], [place] [id number] 15 Jun, 2012 [facility] [address] [id number] [address] [place] [address], [place] [id number] 06 Jun, 2012 [facility] [address] [id number] [address] [place] [address], [place] [id number] Jun, [facility] [address] [id number] [address] [place] [address], [place] [id number] May, [facility] [address] [id number] [address] [place] [address], [place] [id number] May, [facility] [address] [id number] [place] [address], [place] [id number] May, [facility] [address] [id number] [address] [place] [address], [place] [id number] May, [facility] [address] [id number] [address] [place] [address], [place] [id number] May, [facility] [address] [id number] [address] [place] [address], [place] [id number] May, [facility] [address] [id number] [address] [place] [address], [place] [id number] May, [facility] [address] [id number] [address] [place] [address], [place] [id number] May, [facility] [address] [id number] [address] [place] [address], [place] [id number] May, [facility] [address] [id number] [address] [place] [address], [place] [id number] Apr, [facility] [address] [id number] [address] [place] [address], [place] [id number] Apr, [facility] [address] [id number] [address] [place] [address], [place] [id number] Apr, [facility] [address] [id number] [address] [place] [address], [place] [id number] Apr, [facility] [address] [id number] [address] [place] [address], [place] [id number] Apr, [facility] [address] [id number] [address] [place] [address], [place] [id number] Mar, [facility] [address] [id number] [address] [place] [address] [place] [id number] Mar, [facility] [address] [id number] [address] [place] [address], [place] [id number] Mar, [facility] [address] [id number] [address] [place] [address], [place] [id number] Mar, [facility] [address] [id number] [address] [place] [address], [place] [id number] Mar, [facility] [address] [id number] [address] [place] [address], [place] [id number] Mar, [facility] [address] [id number] [address] [place] [address], [place] [id number] 17 Mar, 2012 [facility] [address] [id number] [address] [place] [address], [place] [id number] Mar, [facility] [address] [id number] [address] [place] [address], [place] [id number] Mar, [facility] [address] [id number] [address] [place] [address], [place] [id number] Mar, [facility] [address] [id number] [address] [place] [address], [place] [id number] 30 Feb, 2012 [facility] [address] [id number] [address] [place] [address], [place] [id number] 30 Feb, 2012 [facility] [address] [id number] [address] [place] [address], [place] [id number] Feb, [facility] [address] [id number] [address] [place] [address], [place] [id number] Feb, [facility] [address] [id number] [address] [place] [address], [place] [id number] Feb, [facility] [address] [id number] [address] [place] [address], [place] [id number] Feb, [facility] [address] [id number] [address] [place] [address], [place] [id number] Feb, [facility] [address] [id number] [address] [place] [address], [place] [id number] 20 Feb, 2012 [facility] [address] [id number] [address] [place] [address], [place] [id number] 16 Feb, 2012 [facility] [address] [id number] [address] [place] [address], [place] [id number] 16 Feb, 2012 [facility] [address] [id number] [address] [place] [address], [place] [id number] 13 Feb, 2012 [facility] [address] [id number] [address] [place] [address], [place] [id number] 13 Feb, 2012 [facility] [address] [id number] [address] [place] [address], [place] [id number] Feb, [facility] [address] [id number] [address] [place] [address], [place] [id number] Feb, [facility] [address] [id number] [address] [place] [address], [place] [id number] Feb, [facility] [address] [id number] [address] [place] [address], [place] [id number] 08 Feb, 2012 [facility] [address] [id number] [address] [place] [address], [place] [id number] Feb, [facility] [address] [id number] [address] [place] [address], [place] [id number] Feb, [facility] [address] [id number] [address] [place] [address], [place] [id number] Jan, [facility] [address] [id number] [address] [place] [address], [place] [id number] Jan, [facility] [address] [id number] [address] [place] [address], [place] [id number] Jan, [facility] [address] [id number] [address] [place] [address], [place] [id number] Jan, [facility] [address] [id number] [address] [place] [address], [place] [id number] Jan, [facility] [address] [id number] [address] [place] [address], [place] [id number] Jan, [facility] [address] [id number] [address] [place] [address], [place] [id number] Jan, [facility] [address] [id number] [address] [place] [address], [place] [id number] Jan, [facility] [address] [id number] [address] [place] [address], [place] [id number] Jan, [facility] [address] [id number] [address] [place] [address], [place] [id number] Jan, [facility] [address] [id number] [address] [place] [address], [place] [id number] 24 Dec, 2011 [facility] [address] [id number] [address] [place] [address], [place] [id number] Dec, [facility] [address] [id number] [address] [place] [address], [place] [id number] Dec, [facility] [address] [id number] [address] [place] [address], [place] [id number] Dec, [facility] [address] [id number] [address] [place] [address], [place] [id number] Nov, [facility] [address] [id number] [address] [place] [address], [place] [id number] Nov, [facility] [address] [id number] [address] [place] [address], [place] [id number] Nov, [facility] [address] [id number] [address] [place] [address], [place] [id number] Nov, [facility] [address] [id number] [address] [place] [address], [place] [id number] Nov, [facility] [address] [id number] [address] [place] [address], [place] [id number] Nov, [facility] [address] [id number] [address] [place] [address], [place] [id number] Oct, [facility] [address] [id number] [address] [place] [address], [place] [id number] Oct, [facility] [address] [id number] [address] [place] [address], [place] [id number] Oct, [facility] [address] [id number] [address] [place] [address], [place] [id number] Oct, [facility] [address] [id number] [address] [place] [address], [place] [id number] Oct, [facility] [address] [id number] [address] [place] [address], [place] [id number] Sep, [facility] [address] [id number] [address] [place] [address], [place] [id number] Sep, [facility] [address] [id number] [address] [place] [address], [place] [id number] Sep, [facility] [address] [id number] [address] [place] [address], [place] [id number] Sep, [facility] [address] [id number] [address] [place] [address], [place] [id number] Sep, [facility] [address] [id number] [address] [place] [address], [place] [id number] August, [facility] [address] [id number] [address] [place] [address], [place] [id number] August, [facility] [address] [id number] [address] [place] [address], [place] [id number] August, [facility] [address] [id number] [address] [place] [address], [place] [id number] August, [facility] [address] [id number] [address] [place] [address], [place] [id number] Jul, [facility] [address] [id number] [address] [place] [address], [place] [id number] Jul, [facility] [address] [id number] [address] [place] [address], [place] [id number] Jul, [facility] [address] [id number] [address] [place] [address], [place] [id number] Jul, [facility] [address] [id number] [address] [place] [address], [place] [id number] Jul, [facility] [address] [id number] [address] [place] [address], [place] [id number] Jul, [facility] [address] [id number] [address] [place] [address], [place] [id number] Jul, [facility] [address] [id number] [address] [place] [address], [place] [id number] Jul, [facility] [address] [id number] [address] [place] [address], [place] [id number] Jul, [facility] [address] [id number] [address] [place] [address], [place] [id number] Jul, [facility] [address] [id number] [address] [place] [address], [place] [id number] Jul, [facility] [address] [id number] [address] [place] [address], [place] [id number] Jul, [facility] [address] [id number] [address] [place] [address], [place] [id number] Jul, [facility] [address] [id number] [address] [place] [address], [place] [id number] Jul, [facility] [address] [id number] [address] [place] [address], [place] [id number] Jun, [facility] [address] [id number] [address] [place] [address], [place] [id number] 27 Jun, 2011 [facility] [address] [id number] [address] [place] [address], [place] [id number] 20 Jun, 2011 [facility] [address] [id number] [address] [place] [address], [place] [id number] Jun, [facility] [address] [id number] [address] [place] [address], [place] [id number] May, [facility] [address] [id number] [address] [place] [address], [place] [id number] 16 May, 2011 [facility] [address] [id number] [address] [place] [address], [place] [id number] May, [facility] [address] [id number] [address] [place] [address], [place] [id number] Apr, [facility] [address] [id number] [address] [place] [address], [place] [id number] Apr, [facility] [address] [id number] [address] [place] [address], [place] [id number] Apr, [facility] [address] [id number] [address] [place] [address], [place] [id number] Apr, [facility] [address] [id number] [address] [place] [address], [place] [id number] Apr, [facility] [address] [id number] [address] [place] [address], [place] [id number] Mar, [facility] [address] [id number] [address] [place] [address], [place] [id number] Mar, [facility] [address] [id number] [address] [place] [address], [place] [id number] Mar, [facility] [address] [id number] [address] [place] [address], [place] [id number] Mar, [facility] [address] [id number] [address] [place] [address], [place] [id number] Mar, [facility] [address] [id number] [address] [place] [address], [place] [id number] 09 Mar, 2011 [facility] [address] [id number] [address] [place] [address], [place] [id number] 05 Mar, 2011 [facility] [address] [id number] [address] [place] [address], [place] [id number] 29 Feb, 2011 [facility] [address] [id number] [address] [place] [address], [place] [id number] 25 Feb, 2011 [facility] [address] [id number] [address] [place] [address], [place] [id number] Feb, [facility] [address] [id number] [address] [place] [address], [place] [id number] 22 Feb, 2011 [facility] [address] [id number] [address] [place] [address], [place] [id number] 16 Feb, 2011 [facility] [address] [id number] [address] [place] [address], [place] [id number] 14 Feb, 2011 [facility] [address] [id number] [address] [place] [address], [place] [id number] 10 Feb, 2011 [facility] [address] [id number] [address] [place] [address], [place] [id number] 31 Jan, 2011 [facility] [address] [id number] [address] [place] [address], [place] [id number] 31 Jan, 2011 [facility] [address] [id number] [address] [place] [address], [place] [id number] 31 Jan, 2011 [facility] [address] [id number] [address] [place] [address], [place] [id number] 18 Jan, 2011 [facility] [address] [id number] [address] [place] [address], [place] [id number] 17 Jan, 2011 [facility] [address] [id number] [address] [place] [address], [place] [id number] 17 Jan, 2011 [facility] [address] [id number] [address] [place] [address], [place] [id number] 17 Jun, 2010 [facility] [address] [id number] [address] [place] [address], [place] [id number] 30 Mar, 2010 [facility] [address] [id number] [address] [place] [address] [address] 20 Mar, 2010 [facility] [address] [id number] [address] [place] [address], [place] [id number] 14 Mar, 2010 [facility] [address] [id number] [address] [place] [address], [place] [id number] 14 Mar, 2010 [facility] [address] [id number] [address] [place] [address], [place] [id number] 13 Mar, 2010 [facility] [address] [id number] [address] [place] [address], [place] [id number] 07 Mar, 2010 [facility] [address] [id number] [address] [place] [address], [place] [id number] 02 Mar, 2010 [facility] [address] [id number] [address] [place] [address], [place] [id number] Mar, [facility] [address] [id number] [address] [place] [address], [place] [id number] 30 Feb, 2010 [facility] [address] [id number] [address] [place] [address], [place] [id number] 29 Feb, 2010 [facility] [address] [id number] [address] [place] [address], [place] [id number] 17 Feb, 2010 [facility] [address] [id number] [address] [place] [address], [place] [id number] 17 Feb, 2010 [facility] [address] [id number] [address] [place] [address], [place] [id number] 16 Feb, 2010 [facility] [address] [id number] [address] [place] [id number] 08 Feb, 2010 [facility] [address] [id number] [address] [place] [address], [place] [id number] 04 Feb, 2010 [facility] [address] [id number] [address] [place] [address], [place] [id number] Feb, [facility] [address] [id number] [address] [place] [address], [place] [id number] 28 Jan, 2010 [facility] [address] [id number] [address] [place] [id number] Jan, [facility] [address] [id number] [address] [place] [phone] Jan, [facility] [address] [id number] [address] [place] [id number] Jan, [facility] [address] [id number] [address] [place] [id number] Mar, [facility] [address] [id number] [address] [place] [id number] Mar, [facility] [address] [id number] [address] [place] [id number] Mar, [facility] [address] [id number] [address] [place] [id number] Mar, [facility] [address] [id number] [address] [place] [id number] Mar, [facility] [address] [id number] [address] [place] [id number] Mar, [facility] [address] [id number] [address] [place] [id number] Feb, [facility] [address] [id number] [address] [place] [id number] Feb, [facility] [address] [id number] [address] [place] [phone] Jan, [facility] [address] [id number] [address] [place] [id number] Sep, [facility] [address] [id number] [address] [place] [phone] May, IMMUNIZATIONS No Known Immunizations SOCIAL HISTORY [...] Surgical History Left ear surgery Hospitalization History [facility] [place]- Spontane ous Pneumothorax Hospitalization History [facility]- Colon resection Hospitalization History [facility] - diarrhea/ couldnt urin ate nov 2017 Hospitalization History pain /hip to foot right side 10/16/19 19
--- OUTSIDE RECORDS SUMMARY | 2019-08-28 09:12 | XMS REPORT ---
Author Author Dixon PRATER Organization [facility] Address [address] [place] [address] Care Team Providers Care Corporate Administrative Assistant Name Role Phone AGUSTÍN PRATER Unavailable PROBLEMS Type Condition ICD9-CM Code ZSP47-GC Code Onset Dates Condition S tatus SNOMED Code Problem Insomnia G47.00 Active 779568182 Problem Anxiety F41.9 Active 77159764 Problem HTN (hypertension) I10 Active 3 4771548 Problem Hyperlipidemia E78.5 Active 44933 004 Problem Thoracic back pain, unspecif ied back pain laterality, unspecified chronicity M54.6 Active 378001854 Problem Vitamin D deficiency E55.9 Active 70760351 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 14796847 Problem Chronic pain G89.29 Active 2816650 1 Problem Schizophrenia, unspecified type F20.9 Active 30786207 Problem Constipation K59.00 Active 2151113 8 Problem Environmental allergies Z91.09 Active 370099087 Problem Primary insomnia F51.01 Active 397 2004 Problem Chronic kidney disease, stage III (moderate) N18.3 Active 462895944 Problem Vision loss H54.7 Active 86039853 1 ALLERGIES No Information ENCOUNTERS Encounter Location Date Diagnosis [facility] [address] [id number] [address] [place] [phone] Oct, [facility] [address] [id number] [address] [place] [address] Oct, Anxiety F41.9 and Thoracic b ack pain, unspecified back pain laterality, unspecified chronicity M54.6 [facility] [address] [id number] [address] [place] [phone] Oct, Schizophrenia, unspecified t ype F20.9 and Acute kidney injury N17.9 [facility] [address] [id number] [address] [place] [id number] Oct, [facility] [address] [id number] [address] [place] [address] Oct, [facility] [address] [id number] [address] [place] [id number] Oct, Thoracic back pain, unspecif ied back pain laterality, unspecified chronicity M54.6 [facility] [address] [id number] [address] [place] [id number] Oct, [facility] [address] [id number] [address] [place] [id number] Oct, [facility] [address] [id number] [address] [place] [id number] Sep, Anxiety F41.9 [facility] [address] [id number] [address] [place] [id number] Sep, [facility] [address] [id number] [address] [place] [id number] Sep, Thoracic back pain, unspecif ied back pain laterality, unspecified chronicity M54.6 [facility] [address] [id number] [address] [place] [phone] Sep, [facility] [address] [id number] [address] [place] [id number] Sep, [facility] [address] [id number] [address] [place] [id number] Sep, [facility] [address] [id number] [address] [place] [id number] Sep, [facility] [address] [id number] [address] [place] [id number] Sep, [facility] [address] [id number] [address] [place] [id number] Sep, [facility] [address] [id number] [address] [place] [id number] Sep, Chronic pain G89.29 ; Chroni c kidney disease, stage III (moderate) N18.3 ; Hyperlipidemia E78.5 and Insomnia G47.00 [facility] [address] [id number] [address] [place] [id number] Sep, Thoracic back pain, unspecif ied back pain laterality, unspecified chronicity M54.6 [facility] [address] [id number] [address] [place] [id number] August, Anxiety F41.9 [facility] [address] [id number] [address] [place] [id number] August, Thoracic back pain, unspecif ied back pain laterality, unspecified chronicity M54.6 and Anxiety F41.9 [facility] [address] [id number] [address] [place] [address] August, 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 [facility] [address] [id number] [address] [place] [id number] August, 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 [facility] [address] [id number] [address] [place] [id number] August, [facility] [address] [id number] [address] [place] [address] August, [facility] [address] [id number] [address] [place] [address] August, Thoracic back pain, unspecif ied back pain laterality, unspecified chronicity M54.6 [facility] [address] [id number] [address] [place] [address] August, [facility] [address] [id number] [address] [place] [id number] August, Anxiety F41.9 and Thoracic b ack pain, unspecified back pain laterality, unspecified chronicity M54.6 [facility] [address] [id number] [address] [place] [address] Jul, [facility] [address] [id number] [address] [place] [address] Jul, Thoracic back pain, unspecif ied back pain laterality, unspecified chronicity M54.6 [facility] [address] [id number] [address] [place] [address] Jun, Anxiety F41.9 and Thoracic b ack pain, unspecified back pain laterality, unspecified chronicity M54.6 [facility] [address] [id number] [address] [place] [address] Jun, Anxiety F41.9 and Thoracic b ack pain, unspecified back pain laterality, unspecified chronicity M54.6 [address] [facility] [id number] [address] [place] [id number] Jun, Thoracic back pain, unspecif ied back pain laterality, unspecified chronicity M54.6 [address] [facility] [id number] [address] [place] [address] Jun, Anxiety F41.9 and Thoracic b ack pain, unspecified back pain laterality, unspecified chronicity M54.6 [address] [facility] [id number] [address] [place] [address] May, [facility] [address] [facility] [id number] [address] [place] [address] May, [facility] [address] [facility] [id number] [address] [place] [id number] May, [facility] [address] [facility] [id number] [address] [place] [address] May, Anxiety F41.9 and Encounter for medication monitoring Z51.81 [place] [address] [facility] [id number] [address] [place] [address] 05 May, 2018 Anxiety F41.9 and Thoracic b ack pain, unspecified back pain laterality, unspecified chronicity M54.6 [place] [address] [facility] [id number] [address] [place] [address] Apr, Hyperlipidemia 272.4 [facility] [address] [id number] [address] [place] [address] Apr, Chronic pain G89.29 ; Anxiet y F41.9 ; Cervical radiculopathy M54.12 and Vision loss H54.7 [facility] [address] [id number] [address] [place] [id number] Apr, [facility] [address] [id number] [address] [place] [id number] Apr, Anxiety F41.9 and Thoracic b ack pain, unspecified back pain laterality, unspecified chronicity M54.6 [address] [address] [id number] [address] [place] [id number] Mar, [place] [address] [id number] [address] [place] [address] Mar, Anxiety F41.9 and Thoracic b ack pain, unspecified back pain laterality, unspecified chronicity M54.6 [address] [id number] [address] [place] [address] Feb, Anxiety F41.9 and Thoracic b ack pain, unspecified back pain laterality, unspecified chronicity M54.6 [address] [id number] [address] [place] [address] Feb, Thoracic back pain, unspecif ied back pain laterality, unspecified chronicity M54.6 [facility] [address] [id number] [address] [place] [address] Jan, [facility] [address] [id number] [address] [place] [address] Jan, Anxiety F41.9 and Thoracic b ack pain, unspecified back pain laterality, unspecified chronicity M54.6 [facility] [address] [id number] [address] [place] [address] Dec, Diarrhea of presumed infecti ous origin R19.7 [facility] [address] [id number] [address] [place] [id number] 19 Dec, 2017 Diarrhea of presumed infecti ous origin R19.7 [facility] [address] [id number] [address] [place] [id number] 18 Dec, 2017 Thoracic back pain, unspecif ied back pain laterality, unspecified chronicity M54.6 [facility] [address] [id number] [address] [place] [id number] 17 Dec, 2017 [facility] [address] [id number] [address] [place] [id number] 17 Dec, 2017 Anxiety F41.9 and Thoracic b ack pain, unspecified back pain laterality, unspecified chronicity M54.6 [facility] [address] [id number] [address] [place] [id number] 13 Dec, 2017 Diarrhea of presumed infecti ous origin R19.7 [facility] [address] [id number] [address] [place] [id number] 13 Dec, 2017 [facility] [address] [id number] [address] [place] [id number] 12 Dec, 2017 Anxiety F41.9 and Thoracic b ack pain, unspecified back pain laterality, unspecified chronicity M54.6 [facility] [address] [id number] [address] [place] [address] Dec, Anxiety F41.9 and Thoracic b ack pain, unspecified back pain laterality, unspecified chronicity M54.6 [facility] [address] [place] [id number] Dec, Diarrhea of presumed infectious origin R 19.7 ; Anxiety F41.9 ; Thoracic back pain, unspecified back pain laterality, unspecified chronicity M54.6 and HTN (hypertension) I10 [facility] [address] [id number] [address] [place] [id number] 05 Dec, 2017 Anxiety F41.9 [facility] [address] [place] [id number] Dec, Anxiety F41.9 ; Diarrhea of presumed inf ectious origin R19.7 ; Generalized abdominal pain R10.84 and Localized edema R60.0 [place] [id number] [place] [address] Nov, [facility] [address] [place] [id number] Nov, Anxiety F41.9 ; Urinary retention R33.9 ; Diarrhea of presumed infectious origin R19.7 ; Weakness R53.1 ; Acute kidney failure, unspecified N17.9 ; Chronic kidney disease, stage III (moderate) N18.3 and Thoracic back pain, unspecified back pain laterality, unspecified chronicity M54.6 [address] [id number] Oct, Thoracic back pain, unspecif ied back pain laterality, unspecified chronicity M54.6 and Anxiety F41.9 [address] [place] [address] [id number] [address] [place] [address] Sep, Thoracic back pain, unspecif ied back pain laterality, unspecified chronicity M54.6 and Anxiety F41.9 [address] [place] [address] [id number] [address] [place] [address] Sep, Thoracic back pain, unspecif ied back pain laterality, unspecified chronicity M54.6 ; Anxiety F41.9 and Encounter for medication monitoring Z51.81 [place] [address] [id number] [address] [place] [address] August, [address] [address] August, Thoracic back pain, unspecif ied back pain laterality, unspecified chronicity M54.6 and Anxiety F41.9 [address] [place] [address] [id number] [address] [place] [address] August, Hyperlipidemia E78.5 and HTN (hypertension) I10 [address] [id number] [address] [place] [address] August, [facility] [address] [id number] [address] [place] [address] August, Medicare welcome exam Z00.00 ; Chronic kidney failure N18.9 ; Anxiety F41.9 ; Chronic pain G89.29 ; Insomnia G47.00 ; Hyperlipidemia E78.5 ; HTN (hypertension) I10 and Thoracic back pain, unspecified back pain laterality, unspecified chronicity M54.6 [facility] [address] [id number] [address] [place] [address] Jul, [place] [address] [id number] [address] [place] [id number] Jul, [address] [address] [id number] [address] [place] [address] Jul, [address] [place] [address] [id number] [address] [place] [address] Jul, Anxiety F41.9 [address] [place] [address] [id number] [address] [place] [address] Jul, Thoracic back pain, unspecif ied back pain laterality, unspecified chronicity M54.6 and Anxiety F41.9 [address] [address] [id number] [address] [place] [id number] Jun, Thoracic back pain, unspecif ied back pain laterality, unspecified chronicity M54.6 and Anxiety F41.9 [address] [place] [id number] [address] [place] [address] May, Thoracic back pain, unspecif ied back pain laterality, unspecified chronicity M54.6 and Anxiety F41.9 [address] [place] [address] [id number] [address] [place] [address] Apr, Thoracic back pain, unspecif ied back pain laterality, unspecified chronicity M54.6 and Anxiety F41.9 [address] [address] [id number] [address] [place] [id number] Mar, [facility] [address] [facility] [id number] [address] [place] [id number] Mar, Thoracic back pain, unspecif ied back pain laterality, unspecified chronicity M54.6 and Anxiety F41.9 [place] [address] [id number] [address] [place] [address] Mar, Thoracic back pain, unspecif ied back pain laterality, unspecified chronicity M54.6 ; HTN (hypertension) I10 ; Hyperlipidemia E78.5 and Anxiety F41.9 [address] [address] [address] Feb, Thoracic back pain, unspecif ied back pain laterality, unspecified chronicity M54.6 and Anxiety F41.9 [address] [address] Nov, [place] [address] [id number] [address] [place] [address] Oct, [place] [address] [address] Oct, Thoracic back pain, unspecif ied back pain laterality, unspecified chronicity M54.6 [address] [address] [address] Oct, HTN (hypertension) I10 ; Con stipation K59.00 ; Hyperlipidemia E78.5 ; Thoracic back pain, unspecified back pain laterality, unspecified chronicity M54.6 ; Chronic pain G89.29 ; Anxiety F41.9 ; Chronic kidney failure N18.9 ; Environmental allergies Z91.09 ; Vitamin D deficiency E55.9 and Primary insomnia F51.01 [facility] [id number] [place] [address] Sep, Anxiety F41.9 [place] [id number] [place] [address] Sep, [facility] [address] [id number] [address] [place] [address] August, Anxiety F41.9 [facility] [address] [id number] [address] [place] [address] August, [facility] [address] [id number] [address] [place] [address] Jul, Anxiety F41.9 [facility] [address] [id number] [address] [place] [id number] Jul, [facility] [address] [id number] [address] [place] [address] Jun, Anxiety F41.9 [facility] [address] [id number] [address] [place] [address] Jun, [facility] [address] [id number] [address] [place] [address] May, [facility] [address] [id number] [address] [place] [id number] May, [facility] [address] [id number] [address] [place] [address] May, [facility] [address] [id number] [address] [place] [address] Apr, [facility] [address] [id number] [address] [place] [address] Apr, [facility] [address] [id number] [address] [place] [id number] Apr, Anxiety F41.9 [facility] [address] [id number] [address] [place] [address] Apr, Anxiety F41.9 [facility] [address] [id number] [address] [place] [address] Apr, [facility] [id number] [place] [address] Mar, HTN (hypertension) I10 ; Phillip mor R25.1 ; Hypercholesterolemia E78.0 ; Constipation K59.00 ; Chronic pain G89.29 ; Hyperlipidemia E78.5 ; Insomnia G47.00 ; Anxiety F41.9 and Thoracic back pain, unspecified back pain laterality, unspecified chronicity M54.6 [facility] [address] [facility] [id number] [place] [address] Mar, Tremor R25.1 ; HTN (hyperten stas) I10 ; Hypercholesterolemia E78.0 ; Constipation K59.00 ; Chronic pain G89.29 ; Hyperlipidemia E78.5 ; Insomnia G47.00 ; Anxiety F41.9 and Thoracic back pain, unspecified back pain laterality, unspecified chronicity M54.6 [facility] [address] [address] Mar, [facility] [address] [address] Mar, [facility] [address] [address] Feb, [facility] [address] [address] Jan, [facility] [address] [address] Jan, [facility] [address] [id number] [address] [place] [address] Dec, [facility] [address] [id number] [address] [place] [address] Nov, [facility] [id number] [place] [address] Nov, [facility] [address] [id number] [address] [place] [address] Oct, Anxiety F41.9 [facility] [id number] [place] [address] Oct, Chronic pain G89.29 [facility] [address] [facility] [id number] [address] [place] [address] Sep, [facility] [address] [facility] [id number] [address] [place] [address] Sep, [facility] [address] [facility] [id number] [address] [place] [address] Sep, [facility] [address] [facility] [id number] [address] [place] [id number] Sep, [facility] [address] [facility] [id number] [address] [place] [address] Sep, Chronic pain syndrome G89.4 [facility] [address] [facility] [id number] [address] [place] [address] Sep, HTN (hypertension) I10 ; Chr onic pain G89.29 ; Hypercholesterolemia E78.0 ; Chronic kidney failure N18.9 ; Constipation, unspecified constipation type K59.00 ; Anxiety F41.9 and Thoracic back pain, unspecified back pain laterality, unspecified chronicity M54.6 [facility] [address] [facility] [id number] [address] [place] [id number] August, Chronic pain syndrome G89.4 [facility] [address] [id number] [address] [place] [address] August, Chronic pain syndrome G89.4 [facility] [address] [id number] [address] [place] [id number] Jul, Anxiety disorder, unspecifie d F41.9 and Chronic pain syndrome G89.4 [facility] [address] [facility] [id number] [address] [place] [address] Jul, Insomnia, unspecified G47.00 and Chronic pain syndrome G89.4 [facility] [address] [facility] [id number] [address] [place] [address] Jul, Allergic rhinitis J30.9 [facility] [address] [id number] [address] [place] [id number] 15 Jul, 2015 Constipation, unspecified K5 9.00 [facility] [address] [id number] [address] [place] [phone] Jul, [facility] [address] [facility] [id number] [address] [place] [phone] Jun, [facility] [address] [id number] [address] [place] [phone] Jun, [facility] [address] [facility] [id number] [address] [place] [id number] Jun, [facility] [address] [facility] [id number] [address] [place] [id number] Jun, [facility] [address] [facility] [id number] [address] [place] [phone] Jun, [facility] [address] [facility] [id number] [address] [place] [phone] Jun, [facility] [address] [facility] [id number] [address] [place] [phone] May, [facility] [address] [facility] [id number] [address] [place] [id number] May, [facility] [address] [facility] [id number] [address] [place] [id number] May, Anxiety F41.9 ; Insomnia G47 .00 ; Hyperlipidemia E78.5 ; Chronic pain G89.29 ; HTN (hypertension) I10 ; Environmental allergies V15.09 and Constipation 564.00 [facility] [address] [facility] [id number] [address] [place] [id number] Apr, [facility] [address] [facility] [id number] [address] [place] [phone] Apr, [facility] [address] [facility] [id number] [address] [place] [phone] Apr, [facility] [address] [place] [id number] [address] [place] [id number] Mar, [facility] [address] [id number] Mar, [facility] [address] [place] [id number] [address] [place] [id number] Mar, [facility] [address] [id number] Feb, [facility] [address] [id number] Feb, [facility] [address] [id number] Feb, [facility] [address] [id number] Jan, HTN (hypertension) I10 ; Con stipation K59.00 ; Chronic pain G89.29 ; Hyperlipidemia E78.5 ; Hypercholesterolemia E78.0 ; Insomnia G47.00 and Anxiety F41.9 [facility] [address] [id number] [address] [place] [address] Jan, [facility] [address] [id number] [address] [place] [address] Dec, [facility] [address] [id number] [address] [place] [address] Nov, [facility] [address] [id number] [address] [place] [address] Oct, Chronic kidney disease, unsp ecified 585.9 ; Chronic pain syndrome 338.4 ; Hyperlipidemia 272.4 and Essential hypertension 401.9 [facility] [address] [id number] [address] [place] [address] Oct, Chronic kidney disease 585.9 [facility] [address] [id number] [address] [place] [address] Oct, [facility] [address] [facility] [id number] [address] [place] [address] Oct, Chronic kidney disease, unsp ecified 585.9 ; Hypercalcemia 275.42 ; Hyperlipidemia 272.4 ; Essential hypertension 401.9 ; Chronic pain syndrome 338.4 ; Insomnia 780.52 ; Constipation 564.00 ; Environmental allergies V15.09 and Anxiety 300.00 [facility] [address] [facility] [id number] [address] [place] [address] Oct, Chronic kidney disease 585.9 [facility] [address] [facility] [id number] [address] [place] [address] Oct, [facility] [address] [facility] [id number] [address] [place] [address] Oct, Chronic kidney disease 585.9 and Hyperlipidemia 272.4 [facility] [address] [facility] [id number] [address] [place] [address] Oct, [facility] [address] [facility] [id number] [address] [place] [address] Oct, [facility] [address] [facility] [id number] [address] [place] [address] Sep, [facility] [address] [facility] [id number] [address] [place] [address] Sep, [facility] [address] [facility] [id number] [address] [place] [address] Sep, Chronic kidney disease 585.9 and Hyperlipidemia 272.4 [facility] [address] [facility] [id number] [address] [place] [address] Sep, [facility] [address] [facility] [id number] [address] [place] [address] August, [facility] [address] [facility] [id number] [address] [place] [address] August, [facility] [address] [facility] [id number] [address] [place] [id number] 14 Jul, 2014 [facility] [address] [id number] [address] [place] [address], [place] [address] 13 Jul, 2014 [facility] [address] [id number] [address] [place] [address], [place] [address] Jun, [facility] [address] [id number] [address] [place] [address], [place] [address] Jun, [facility] [address] [id number] [address] [place] [address], [place] [address] 16 Jun, 2014 [facility] [address] [id number] [address] [place] [address], [place] [address] Jun, [facility] [address] [id number] [address] [place] [address], [place] [address] Jun, [facility] [address] [id number] [address] [place] [address], [place] [address] Jun, [facility] [address] [id number] [address] [place] [address], [place] [address] Jun, [facility] [address] [id number] [address] [place] [address], [place] [address] Jun, [facility] [address] [id number] [address] [place] [address], [place] [address] May, [facility] [address] [id number] [address] [place] [address], [place] [address] May, [facility] [address] [id number] [address] [place] [address], [place] [address] May, [facility] [address] [id number] [address] [place] [address], [place] [address] May, [facility] [address] [id number] [address] [place] [address], [place] [address] Apr, [facility] [address] [id number] [address] [place] [address], [place] [address] Apr, [facility] [address] [id number] [address] [place] [address], [place] [address] Apr, [facility] [address] [id number] [address] [place] [address], [place] [address] Apr, [facility] [address] [id number] [address] [place] [address], [place] [address] Apr, [facility] [address] [id number] [address] [place] [address], [place] [address] Apr, [facility] [address] [id number] [address] [place] [address], [place] [address] Apr, [facility] [address] [id number] [address] [place] [address], [place] [address] Apr, [facility] [address] [id number] [address] [place] [address], [place] [address] Apr, [facility] [address] [id number] [address] [place] [address], [place] [address] Apr, [facility] [address] [id number] [address] [place] [address], [place] [address] Apr, [facility] [address] [id number] [address] [place] [address], [place] [address] Mar, [facility] [address] [id number] [address] [place] [address], [place] [address] Mar, [facility] [address] [id number] [address] [place] [address], [place] [address] Feb, [facility] [address] [id number] [address] [place] [address], [place] [address] Feb, [facility] [address] [id number] [address] [place] [address], [place] [address] Feb, [facility] [address] [id number] [address] [place] [address], [place] [address] Feb, [facility] [address] [id number] [address] [place] [address], [place] [address] Feb, [facility] [address] [id number] [address] [place] [address], [place] [address] Feb, [facility] [address] [id number] [address] [place] [address], [place] [address] Feb, [facility] [address] [id number] [address] [place] [address], [place] [address] Feb, [facility] [address] [id number] [address] [place] [address], [place] [address] Feb, [facility] [address] [id number] [address] [place] [address], [place] [address] Feb, [facility] [address] [id number] [address] [place] [address], [place] [address] Jan, [facility] [address] [id number] [address] [place] [address], [place] [address] Jan, [facility] [address] [id number] [address] [place] [address] Jan, [facility] [address] [id number] [address] [place] [address], [place] [address] Jan, [facility] [address] [id number] [address] [place] [address] Jan, [facility] [address] [id number] [address] [place] [address] Jan, [facility] [address] [id number] [address] [place] [address] Jan, [facility] [address] [id number] [address] [place] [address], [place] [address] Jan, [facility] [address] [id number] [address] [place] [address], [place] [address] Jan, [facility] [address] [id number] [address] [place] [address] Jan, [facility] [address] [id number] [address] [place] [address] Jan, [facility] [address] [id number] [address] [place] [address], [place] [address] Dec, 2013 [facility] [address] [id number] [address] [place] [address], [place] [address] Dec, [facility] [address] [id number] [address] [place] [address], [place] [address] Dec, 2013 [facility] [address] [id number] [address] [place] [address], [place] [address] Dec, 2013 [facility] [address] [id number] [address] [place] [address], [place] [address] 18 Dec, 2013 [facility] [address] [id number] [address] [place] [address], [place] [address] Dec, [facility] [address] [id number] [address] [place] [address], [place] [address] Dec, [facility] [address] [id number] [address] [place] [address], [place] [address] Dec, [facility] [address] [id number] [address] [place] [address], [place] [address] Nov, [facility] [address] [id number] [address] [place] [address], [place] [address] Nov, [facility] [address] [id number] [address] [place] [address], [place] [address] Nov, [facility] [address] [id number] [address] [place] [address], [place] [address] Nov, [facility] [address] [id number] [address] [place] [address], [place] [address] Nov, [facility] [address] [id number] [address] [place] [address], [place] [address] Nov, [facility] [address] [id number] [address] [place] [address], [place] [address] Nov, [facility] [address] [id number] [facility] [place] [address] Nov, [facility] [address] [id number] [address] [place] [address], [place] [address] Oct, [facility] [address] [id number] [address] [place] [address], [place] [address] Oct, [facility] [address] [id number] [address] [place] [address], [place] [address] Oct, [facility] [address] [id number] [address] [place] [address], [place] [address] Oct, [facility] [address] [id number] [address] [place] [address], [place] [address] Sep, [facility] [address] [id number] [address] [place] [address], [place] [address] Sep, [facility] [address] [id number] [address] [place] [address], [place] [address] Sep, [facility] [address] [id number] [address] [place] [address], [place] [address] Sep, [facility] [address] [id number] [address] [place] [address], [place] [address] Sep, [facility] [address] [id number] [address] [place] [address], [place] [address] Sep, [facility] [address] [id number] [address] [place] [address], [place] [address] Sep, [facility] [address] [id number] [address] [place] [address], [place] [address] Sep, [facility] [address] [id number] [address] [place] [address], [place] [address] August, [facility] [address] [id number] [address] [place] [address], [place] [address] August, [facility] [address] [id number] [address] [place] [address], [place] [address] August, [facility] [address] [id number] [facility] [place] [address] August, [facility] [address] [id number] [address] [place] [address], [place] [address] August, [facility] [address] [id number] [address] [place] [address], [place] [address] August, [facility] [address] [id number] [address] [place] [address], [place] [address] August, [facility] [address] [id number] [address] [place] [address], [place] [address] August, [facility] [address] [id number] [address] [place] [address], [place] [address] August, [facility] [address] [id number] [address] [place] [address], [place] [address] August, [facility] [address] [id number] [address] [place] [address], [place] [address] Jul, [facility] [address] [id number] [address] [place] [address], [place] [address] Jul, [facility] [address] [id number] [address] [place] [address], [place] [address] Jul, [facility] [address] [id number] [address] [place] [address], [place] [address] Jul, [facility] [address] [id number] [address] [place] [address], [place] [address] Jul, [facility] [address] [id number] [address] [place] [address], [place] [address] Jul, [facility] [address] [id number] [address] [place] [address], [place] [address] Jul, [facility] [address] [id number] [address] [place] [address], [place] [address] Jul, [facility] [address] [id number] [facility] [place] [address] Jun, [facility] [address] [id number] [address] [place] [address], [place] [address] Jun, [facility] [address] [id number] [address] [place] [address], [place] [address] Jun, [facility] [address] [id number] [address] [place] [address], [place] [address] Jun, [facility] [address] [id number] [address] [place] [address], [place] [address] Jun, [facility] [address] [id number] [address] [place] [address], [place] [address] Jun, [facility] [address] [id number] [address] [place] [address], [place] [address] May, [facility] [address] [id number] [address] [place] [address], [place] [address] May, [facility] [address] [id number] [address] [place] [address], [place] [address] May, [facility] [address] [id number] [address] [place] [address], [place] [address] May, [facility] [address] [id number] [address] [place] [address], [place] [address] May, [facility] [address] [id number] [address] [place] [address], [place] [address] May, [facility] [address] [id number] [address] [place] [address], [place] [address] May, [facility] [address] [id number] [address] [place] [address], [place] [address] Apr, [facility] [address] [id number] [address] [place] [address], [place] [address] Apr, [facility] [address] [id number] [address] [place] [address], [place] [address] Apr, [facility] [address] [id number] [address] [place] [address], [place] [address] 14 Apr, 2013 [facility] [address] [id number] [address] [place] [address], [place] [address] 10 Apr, 2013 [facility] [address] [id number] [address] [place] [address], [place] [address] 10 Apr, 2013 [facility] [address] [id number] [address] [place] [address], [place] [address] 31 Mar, 2013 [facility] [address] [id number] [address] [place] [address], [place] [address] 31 Mar, 2013 [facility] [address] [id number] [address] [place] [address], [place] [address] Mar, [facility] [address] [id number] [address] [place] [address], [place] [address] Mar, [facility] [address] [id number] [address] [place] [address], [place] [address] Mar, [facility] [address] [id number] [address] [place] [address], [place] [address] Mar, [facility] [address] [id number] [address] [place] [address], [place] [address] 16 Mar, 2013 [facility] [address] [id number] [address] [place] [address], [place] [address] 16 Mar, 2013 [facility] [address] [id number] [address] [place] [address], [place] [address] Mar, [facility] [address] [id number] [address] [place] [address], [place] [address] Mar, [facility] [address] [id number] [address] [place] [address], [place] [address] Feb, [facility] [address] [id number] [address] [place] [address], [place] [address] Feb, [facility] [address] [id number] [address] [place] [address], [place] [address] Feb, [facility] [address] [id number] [address] [place] [address], [place] [address] Feb, [facility] [address] [id number] [address] [place] [address], [place] [address] Feb, [facility] [address] [id number] [address] [place] [address], [place] [address] Feb, [facility] [address] [id number] [address] [place] [address], [place] [address] Feb, [facility] [address] [id number] [address] [place] [address], [place] [address] Feb, [facility] [address] [id number] [address] [place] [address], [place] [address] Feb, [facility] [address] [id number] [address] [place] [address], [place] [address] Feb, [facility] [address] [id number] [address] [place] [address], [place] [address] Jan, [facility] [address] [id number] [address] [place] [address], [place] [address] Jan, [facility] [address] [id number] [address] [place] [address], [place] [address] Jan, [facility] [address] [id number] [address] [place] [address], [place] [address] Jan, [facility] [address] [id number] [address] [place] [address], [place] [address] Jan, [facility] [address] [id number] [address] [place] [address], [place] [address] Jan, [facility] [address] [id number] [address] [place] [address], [place] [address] 17 Jan, 2013 [facility] [address] [id number] [address] [place] [address], [place] [address] Jan, [facility] [address] [id number] [address] [place] [address], [place] [address] Jan, [facility] [address] [id number] [address] [place] [address], [place] [address] Dec, [facility] [address] [id number] [address] [place] [address], [place] [address] Dec, [facility] [address] [id number] [address] [place] [address], [place] [address] Dec, [facility] [address] [id number] [address] [place] [address], [place] [address] Dec, [facility] [address] [id number] [address] [place] [address], [place] [address] Nov, [facility] [address] [id number] [address] [place] [address], [place] [address] Nov, [facility] [address] [id number] [address] [place] [address], [place] [address] Nov, [facility] [address] [id number] [address] [place] [address], [place] [address] Nov, [facility] [address] [id number] [address] [place] [address], [place] [address] Nov, [facility] [address] [id number] [address] [place] [address], [place] [address] Nov, [facility] [address] [id number] [address] [place] [address], [place] [address] Oct, [facility] [address] [id number] [address] [place] [address], [place] [address] Oct, [facility] [address] [id number] [address] [place] [address], [place] [address] Oct, [facility] [address] [id number] [address] [place] [address], [place] [address] Oct, [facility] [address] [id number] [address] [place] [address], [place] [address] 27 Sep, 2012 [facility] [address] [id number] [address] [place] [address], [place] [address] 19 Sep, 2012 [facility] [address] [id number] [address] [place] [address], [place] [address] 17 Sep, 2012 [facility] [address] [id number] [address] [place] [address], [place] [address] 14 Sep, 2012 [facility] [address] [id number] [address] [place] [address], [place] [address] 10 Sep, 2012 [facility] [address] [id number] [address] [place] [address], [place] [address] August, [facility] [address] [id number] [address] [place] [address], [place] [address] 2012 [facility] [address] [id number] [address] [place] [address], [place] [address] Jul, [facility] [address] [id number] [address] [place] [address], [place] [address] Jul, [facility] [address] [id number] [address] [place] [address], [place] [address] 15 Jul, 2012 [facility] [address] [id number] [address] [place] [address], [place] [address] 09 Jul, 2012 [facility] [address] [id number] [address] [place] [address], [place] [address] 08 Jul, 2012 [facility] [address] [id number] [address] [place] [address], [place] [address] 26 Jun, 2012 [facility] [address] [id number] [address] [place] [address], [place] [address] 20 Jun, 2012 [facility] [address] [id number] [address] [place] [address], [place] [address] 15 Jun, 2012 [facility] [address] [id number] [address] [place] [address], [place] [address] 06 Jun, 2012 [facility] [address] [id number] [address] [place] [address], [place] [address] Jun, [facility] [address] [id number] [address] [place] [address], [place] [address] May, [facility] [address] [id number] [address] [place] [address], [place] [address] May, [facility] [address] [id number] [address] [place] [address], [place] [address] May, [facility] [address] [id number] [address] [place] [address], [place] [address] May, [facility] [address] [id number] [address] [place] [address], [place] [address] May, [facility] [address] [id number] [address] [place] [address], [place] [address] May, [facility] [address] [address] [id number] [address] [place] [address], [place] [address] May, [facility] [address] [id number] [address] [place] [address], [place] [address] May, [facility] [address] [id number] [address] [place] [address], [place] [address] May, [facility] [address] [id number] [address] [place] [address], [place] [address] Apr, [facility] [address] [id number] [address] [place] [address], [place] [address] Apr, [facility] [address] [id number] [address] [place] [address], [place] [address] Apr, [facility] [address] [id number] [address] [place] [address], [place] [address] Apr, [facility] [address] [id number] [address] [place] [address], [place] [address] Apr, [facility] [address] [id number] [address] [place] [address], [place] [address] Mar, [facility] [address] [id number] [address] [place] [address], [place] [address] Mar, [facility] [address] [id number] [address] [place] [address], [place] [address] Mar, [facility] [address] [id number] [address] [place] [address], [place] [address] Mar, [facility] [address] [id number] [address] [place] [address], [place] [address] Mar, [facility] [address] [id number] [address] [place] [address], [place] [address] Mar, [facility] [address] [id number] [address] [place] [address], [place] [address] Mar, [facility] [address] [id number] [address] [place] [address], [place] [address] Mar, [facility] [address] [id number] [address] [place] [address], [place] [address] Mar, [facility] [address] [id number] [address] [place] [address], [place] [address] Mar, [facility] [address] [id number] [address] [place] [address], [place] [address] 30 Feb, 2012 [facility] [address] [id number] [address] [place] [address], [place] [address] Feb, [facility] [address] [id number] [address] [place] [address], [place] [address] Feb, [facility] [address] [id number] [address] [place] [address], [place] [address] Feb, [facility] [address] [id number] [address] [place] [address], [place] [address] Feb, [facility] [address] [id number] [address] [place] [address], [place] [address] Feb, [facility] [address] [id number] [address] [place] [address], [place] [address] 20 Feb, 2012 [facility] [address] [id number] [address] [place] [address], [place] [address] 20 Feb, 2012 [facility] [address] [id number] [address] [place] [address], [place] [address] 16 Feb, 2012 [facility] [address] [id number] [address] [place] [address], [place] [address] 16 Feb, 2012 [facility] [address] [id number] [address] [place] [address], [place] [address] 13 Feb, 2012 [facility] [address] [id number] [address] [place] [address], [place] [address] 13 Feb, 2012 [facility] [address] [id number] [address] [place] [address], [place] [address] 12 Feb, 2012 [facility] [address] [id number] [address] [place] [address], [place] [address] Feb, [facility] [address] [id number] [address] [place] [address], [place] [address] 09 Feb, 2012 [facility] [address] [id number] [address] [place] [address], [place] [address] 08 Feb, 2012 [facility] [address] [id number] [address] [place] [address], [place] [address] Feb, [facility] [address] [id number] [address] [place] [address], [place] [address] Feb, [facility] [address] [id number] [address] [place] [address], [place] [address] Jan, [facility] [address] [id number] [address] [place] [address], [place] [address] Jan, [facility] [address] [id number] [address] [place] [address], [place] [address] Jan, [facility] [address] [id number] [address] [place] [address], [place] [address] Jan, [facility] [address] [id number] [address] [place] [address], [place] [address] Jan, [facility] [address] [id number] [address] [place] [address], [place] [address] Jan, [facility] [address] [id number] [address] [place] [address], [place] [address] Jan, [facility] [address] [id number] [address] [place] [address], [place] [address] Jan, [facility] [address] [id number] [address] [place] [address], [place] [address] Jan, [facility] [address] [id number] [address] [place] [address], [place] [address] Jan, [facility] [address] [id number] [address] [place] [address], [place] [address] 24 Dec, 2011 [facility] [address] [id number] [address] [place] [address], [place] [address] 18 Dec, 2011 [facility] [address] [id number] [address] [place] [address], [place] [address] Dec, [facility] [address] [id number] [address] [place] [address] Dec, [facility] [address] [id number] [address] [place] [address] Nov, [facility] [address] [id number] [address] [place] [address] Nov, [facility] [address] [id number] [address] [place] [address], [place] [address] Nov, [facility] [address] [id number] [address] [place] [address], [place] [address] Nov, [facility] [address] [id number] [address] [place] [address] Nov, [facility] [address] [id number] [address] [place] [address] Nov, [facility] [address] [id number] [address] [place] [address], [place] [address] Oct, [facility] [address] [id number] [address] [place] [address], [place] [address] Oct, [facility] [address] [id number] [address] [place] [address], [place] [address] Oct, [facility] [address] [id number] [address] [place] [address], [place] [address] Oct, [facility] [address] [id number] [address] [place] [address], [place] [address] Oct, [facility] [address] [id number] [address] [place] [address], [place] [address] Sep, [facility] [address] [id number] [address] [place] [address], [place] [address] Sep, [facility] [address] [id number] [address] [place] [address], [place] [address] Sep, [facility] [address] [id number] [address] [place] [address], [place] [address] Sep, [facility] [address] [id number] [address] [place] [address], [place] [address] Sep, [facility] [address] [id number] [address] [place] [address], [place] [address] August, [facility] [address] [id number] [address] [place] [address], [place] [address] August, [facility] [address] [id number] [address] [place] [address], [place] [address] August, [facility] [address] [id number] [address] [place] [address], [place] [address] August, [facility] [address] [id number] [address] [place] [address], [place] [address] Jul, [facility] [address] [id number] [facility] [place] [address] 24 Jul, 2011 [facility] [address] [id number] [address] [place] [address], [place] [address] 19 Jul, 2011 [facility] [address] [id number] [address] [place] [address], [place] [address] 18 Jul, 2011 [facility] [address] [id number] [address] [place] [address], [place] [address] Jul, [facility] [address] [id number] [address] [place] [address], [place] [address] 12 Jul, 2011 [facility] [address] [id number] [address] [place] [address], [place] [address] 11 Jul, 2011 [facility] [address] [id number] [address] [place] [address], [place] [address] 10 Jul, 2011 [facility] [address] [id number] [address] [place] [address], [place] [address] Jul, [facility] [address] [id number] [address] [place] [address], [place] [address] 07 Jul, 2011 [facility] [address] [id number] [address] [place] [address], [place] [address] 05 Jul, 2011 [facility] [address] [id number] [address] [place] [address], [place] [address] Jul, [facility] [address] [id number] [address] [place] [address], [place] [address] Jul, [facility] [address] [id number] [address] [place] [address], [place] [address] Jul, [facility] [address] [id number] [address] [place] [address], [place] [address] 28 Jun, 2011 [facility] [address] [id number] [address] [place] [address], [place] [address] Jun, [facility] [address] [id number] [address] [place] [address], [place] [address] 20 Jun, 2011 [facility] [address] [id number] [address] [place] [address], [place] [address] 16 Jun, 2011 [facility] [address] [id number] [address] [place] [address], [place] [address] 27 May, 2011 [facility] [address] [id number] [address] [place] [address], [place] [address] 16 May, 2011 [facility] [address] [id number] [address] [place] [address], [place] [address] May, [facility] [address] [id number] [address] [place] [address], [place] [address] Apr, [facility] [address] [id number] [address] [place] [address], [place] [address] 18 Apr, 2011 [facility] [address] [id number] [address] [place] [address], [place] [address] Apr, [facility] [address] [id number] [address] [place] [address], [place] [address] Apr, [facility] [address] [id number] [address] [place] [address], [place] [address] Apr, [facility] [address] [id number] [address] [place] [address], [place] [address] Mar, [facility] [address] [id number] [address] [place] [address], [place] [address] Mar, [facility] [address] [id number] [address] [place] [address], [place] [address] Mar, [facility] [address] [id number] [address] [place] [address], [place] [address] Mar, [facility] [address] [id number] [address] [place] [address], [place] [address] Mar, [facility] [address] [id number] [address] [place] [address], [place] [address] Mar, [facility] [address] [id number] [address] [place] [address], [place] [address] 05 Mar, 2011 [facility] [address] [id number] [address] [place] [address], [place] [address] 29 Feb, 2011 [facility] [address] [id number] [address] [place] [address], [place] [address] 25 Feb, 2011 [facility] [address] [id number] [address] [place] [address], [place] [address] Feb, [facility] [address] [id number] [address] [place] [address], [place] [address] 22 Feb, 2011 [facility] [address] [id number] [address] [place] [address], [place] [address] 16 Feb, 2011 [facility] [address] [id number] [address] [place] [address], [place] [address] 14 Feb, 2011 [facility] [address] [id number] [address] [place] [address], [place] [address] 10 Feb, 2011 [facility] [address] [id number] [address] [place] [address], [place] [address] 31 Jan, 2011 [facility] [address] [id number] [address] [place] [address], [place] [address] 31 Jan, 2011 [facility] [address] [id number] [address] [place] [address], [place] [address] 31 Jan, 2011 [facility] [address] [id number] [address] [place] [address], [place] [address] 18 Jan, 2011 [facility] [address] [id number] [address] [place] [address], [place] [address] 17 Jan, 2011 [facility] [address] [id number] [address] [place] [address], [place] [address] 17 Jan, 2011 [facility] [address] [id number] [address] [place] [address], [place] [address] Jun, [facility] [address] [id number] [address] [place] [address], [place] [address] 30 Mar, 2010 [facility] [address] [id number] [address] [place] [address], [place] [address] 20 Mar, 2010 [facility] [address] [id number] [address] [place] [address], [place] [address] 14 Mar, 2010 [facility] [address] [id number] [address] [place] [address], [place] [address] 14 Mar, 2010 [facility] [address] [id number] [address] [place] [address], [place] [address] 13 Mar, 2010 [facility] [address] [id number] [address] [place] [address], [place] [address] 07 Mar, 2010 [facility] [address] [id number] [address] [place] [address], [place] [address] 02 Mar, 2010 [facility] [address] [id number] [address] [place] [address], [place] [address] Mar, [facility] [address] [id number] [address] [place] [address], [place] [address] 30 Feb, 2010 [facility] [address] [id number] [address] [place] [address], [place] [address] 29 Feb, 2010 [facility] [address] [id number] [address] [place] [address], [place] [address] 17 Feb, 2010 [facility] [address] [id number] [address] [place] [address], [place] [address] 17 Feb, 2010 [facility] [address] [id number] [address] [place] [address] 16 Feb, 2010 [facility] [address] [id number] [address] [place] [address], [place] [address] 08 Feb, 2010 [facility] [address] [id number] [address] [place] [address], [place] [address] 04 Feb, 2010 [facility] [address] [id number] [address] [place] [address], [place] [address] Feb, [facility] [address] [id number] [address] [place] [address] Jan, [facility] [address] [id number] [address] [place] [address] Jan, [facility] [address] [id number] [address] [place] [address] Jan, [facility] [address] [id number] [address] [place] [address] Jan, [facility] [address] [id number] [address] [place] [address] 29 Mar, 2009 [facility] [address] [id number] [address] [place] [address] Mar, [facility] [address] [id number] [address] [place] [address] Mar, [facility] [address] [id number] [address] [place] [address] Mar, [facility] [address] [id number] [address] [place] [address] 14 Mar, 2009 [facility] [address] [id number] [address] [place] [address] Mar, [facility] [address] [id number] [address] [place] [address] Feb, [facility] [address] [id number] [address] [place] [address] Feb, [facility] [address] [id number] [address] [place] [address] Jan, [facility] [address] [id number] [address] [place] [address] Sep, [facility] [address] [id number] [address] [place] [address] 18 May, 2008 IMMUNIZATIONS No Known Immunizations [...] Surgical History Left ear surgery Hospitalization History [facility] in [place]- Spontane ous Pneumothorax Hospitalization History [facility]- Colon resection Hospitalization History via [facility] - diarrhea/ couldnt urin ate nov 2017 Hospitalization History pain /hip to foot right side 10/16/19 19
--- OUTSIDE RECORDS SUMMARY | 2019-08-28 09:13 | XMS REPORT ---
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 Name Role Phone STEPHAN DE LEON Unavailable PROBLEMS Type Condition ICD9-CM Code PVI70-UT Code Onset Dates Condition S tatus SNOMED Code Problem Insomnia G47.00 Active 218443626 Problem Anxiety F41.9 Active 25738115 Problem HTN (hypertension) I10 Active 3 5097495 Problem Hyperlipidemia E78.5 Active 44094 004 Problem Thoracic back pain, unspecif ied back pain laterality, unspecified chronicity M54.6 Active 001203147 Problem Vitamin D deficiency E55.9 Active 98266948 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 75043744 Problem Chronic pain G89.29 Active 3667003 1 Problem Schizophrenia, unspecified type F20.9 Active 80518977 Problem Constipation K59.00 Active 4140805 8 Problem Environmental allergies Z91.09 Active 027173846 Problem Primary insomnia F51.01 Active 397 2004 Problem Chronic kidney disease, stage III (moderate) N18.3 Active 536310612 Problem Vision loss H54.7 Active 84555275 1 ALLERGIES No Information ENCOUNTERS Encounter Location Date Diagnosis [facility] [address] [id number] [address] [place] [phone] Oct, [facility] [address] [id number] [address] [place] [address] Oct, Anxiety F41.9 and Thoracic b ack pain, unspecified back pain laterality, unspecified chronicity M54.6 [facility] [address] [id number] [address] [place] [address] Oct, Schizophrenia, unspecified t ype F20.9 and Acute kidney injury N17.9 [facility] [address] [id number] [address] [place] [address] Oct, [facility] [address] [id number] [address] [place] [phone] Oct, [facility] [address] [id number] [address] [place] [address] Oct, Thoracic back pain, unspecif ied back pain laterality, unspecified chronicity M54.6 [facility] [address] [id number] [address] [place] [phone] Oct, [facility] [address] [id number] [address] [place] [address] Oct, [facility] [address] [id number] [address] [place] [address] Sep, Anxiety F41.9 [facility] [address] [id number] [address] [place] [phone] Sep, [facility] [address] [id number] [address] [place] [address] Sep, Thoracic back pain, unspecif ied back pain laterality, unspecified chronicity M54.6 [facility] [address] [id number] [address] [place] [phone] Sep, [facility] [address] [id number] [address] [place] [address] Sep, [facility] [address] [id number] [address] [place] [address] Sep, [facility] [address] [id number] [address] [place] [phone] Sep, [facility] [address] [id number] [address] [place] [phone] Sep, [facility] [address] [id number] [address] [place] [address] Sep, [facility] [address] [id number] [address] [place] [address] Sep, Chronic pain G89.29 ; Chroni c kidney disease, stage III (moderate) N18.3 ; Hyperlipidemia E78.5 and Insomnia G47.00 [facility] [address] [id number] [address] [place] [address] Sep, Thoracic back pain, unspecif ied back pain laterality, unspecified chronicity M54.6 [facility] [address] [id number] [address] [place] [address] August, Anxiety F41.9 [facility] [address] [id number] [address] [place] [address] August, Thoracic back pain, unspecif ied back pain laterality, unspecified chronicity M54.6 and Anxiety F41.9 [facility] [address] [id number] [address] [place] [address] August, 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 [facility] [address] [id number] [address] [place] [address] August, 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 [facility] [address] [id number] [address] [place] [address] August, [facility] [address] [id number] [address] [place] [address] August, [facility] [address] [id number] [address] [place] [id number] August, Thoracic back pain, unspecif ied back pain laterality, unspecified chronicity M54.6 [facility] [address] [id number] [address] [place] [address] August, [facility] [address] [id number] [address] [place] [address] August, Anxiety F41.9 and Thoracic b ack pain, unspecified back pain laterality, unspecified chronicity M54.6 [facility] [address] [id number] [address] [place] [address] Jul, [facility] [address] [id number] [address] [place] [address] Jul, Thoracic back pain, unspecif ied back pain laterality, unspecified chronicity M54.6 [facility] [address] [id number] [address] [place] [address] Jun, Anxiety F41.9 and Thoracic b ack pain, unspecified back pain laterality, unspecified chronicity M54.6 [facility] [address] [id number] [address] [place] [address] Jun, Anxiety F41.9 and Thoracic b ack pain, unspecified back pain laterality, unspecified chronicity M54.6 [place] [address] [facility] [id number] [address] [place] [address] Jun, Thoracic back pain, unspecif ied back pain laterality, unspecified chronicity M54.6 [place] [address] [facility] [id number] [address] [place] [address] Jun, Anxiety F41.9 and Thoracic b ack pain, unspecified back pain laterality, unspecified chronicity M54.6 [place] [address] [facility] [id number] [address] [place] [address] May, [facility] [address] [facility] [id number] [address] [place] [address] May, [facility] [address] [facility] [id number] [address] [place] [address] May, [facility] [address] [facility] [id number] [address] [place] [address] May, Anxiety F41.9 and Encounter for medication monitoring Z51.81 [place] [address] [facility] [id number] [address] [place] [address] 05 May, 2018 Anxiety F41.9 and Thoracic b ack pain, unspecified back pain laterality, unspecified chronicity M54.6 [place] [address] [facility] [id number] [address] [place] [address] Apr, Hyperlipidemia 272.4 [facility] [address] [id number] [address] [place] [address] Apr, Chronic pain G89.29 ; Anxiet y F41.9 ; Cervical radiculopathy M54.12 and Vision loss H54.7 [facility] [address] [id number] [address] [place] [address] Apr, [facility] [address] [id number] [address] [place] [address] Apr, Anxiety F41.9 and Thoracic b ack pain, unspecified back pain laterality, unspecified chronicity M54.6 [place] [address] [id number] [address] [place] [address] Mar, [place] [address] [id number] [address] [place] [address] Mar, Anxiety F41.9 and Thoracic b ack pain, unspecified back pain laterality, unspecified chronicity M54.6 [address] [address] [id number] [address] [place] [address] Feb, Anxiety F41.9 and Thoracic b ack pain, unspecified back pain laterality, unspecified chronicity M54.6 [place] [address] [id number] [address] [place] [address] Feb, Thoracic back pain, unspecif ied back pain laterality, unspecified chronicity M54.6 [facility] [address] [id number] [address] [place] [address] Jan, [facility] [address] [id number] [address] [place] [address] Jan, Anxiety F41.9 and Thoracic b ack pain, unspecified back pain laterality, unspecified chronicity M54.6 [facility] [address] [id number] [address] [place] [address] Dec, Diarrhea of presumed infecti ous origin R19.7 [facility] [address] [id number] [address] [place] [address] 19 Dec, 2017 Diarrhea of presumed infecti ous origin R19.7 [facility] [address] [id number] [address] [place] [phone] 18 Dec, 2017 Thoracic back pain, unspecif ied back pain laterality, unspecified chronicity M54.6 [facility] [address] [id number] [address] [place] [address] 17 Dec, 2017 [facility] [address] [id number] [address] [place] [address] 17 Dec, 2017 Anxiety F41.9 and Thoracic b ack pain, unspecified back pain laterality, unspecified chronicity M54.6 [facility] [address] [id number] [address] [place] [address] 13 Dec, 2017 Diarrhea of presumed infecti ous origin R19.7 [facility] [address] [id number] [address] [place] [address] 13 Dec, 2017 [facility] [address] [id number] [address] [place] [address] 12 Dec, 2017 Anxiety F41.9 and Thoracic b ack pain, unspecified back pain laterality, unspecified chronicity M54.6 [facility] [address] [id number] [address] [place] [address] Dec, Anxiety F41.9 and Thoracic b ack pain, unspecified back pain laterality, unspecified chronicity M54.6 [facility] [address] [place] [id number] Dec, Diarrhea of presumed infectious origin R 19.7 ; Anxiety F41.9 ; Thoracic back pain, unspecified back pain laterality, unspecified chronicity M54.6 and HTN (hypertension) I10 [facility] [address] [id number] [address] [place] [address] 05 Dec, 2017 Anxiety F41.9 [facility] [address] [place] [id number] Dec, Anxiety F41.9 ; Diarrhea of presumed inf ectious origin R19.7 ; Generalized abdominal pain R10.84 and Localized edema R60.0 [place] [address] [id number] [address] [place] [address] Nov, [facility] [address] [place] [id number] Nov, Anxiety F41.9 ; Urinary retention R33.9 ; Diarrhea of presumed infectious origin R19.7 ; Weakness R53.1 ; Acute kidney failure, unspecified N17.9 ; Chronic kidney disease, stage III (moderate) N18.3 and Thoracic back pain, unspecified back pain laterality, unspecified chronicity M54.6 [place] [address] [id number] Oct, Thoracic back pain, unspecif ied back pain laterality, unspecified chronicity M54.6 and Anxiety F41.9 [place] [address] [id number] [address] [place] [address] Sep, Thoracic back pain, unspecif ied back pain laterality, unspecified chronicity M54.6 and Anxiety F41.9 [place] [address] [id number] [address] [place] [address] Sep, Thoracic back pain, unspecif ied back pain laterality, unspecified chronicity M54.6 ; Anxiety F41.9 and Encounter for medication monitoring Z51.81 [place] [address] [id number] [address] [place] [address] August, [place] [address] [address] August, Thoracic back pain, unspecif ied back pain laterality, unspecified chronicity M54.6 and Anxiety F41.9 [place] [address] [id number] [address] [place] [address] August, Hyperlipidemia E78.5 and HTN (hypertension) I10 [place] [address] [id number] [address] [place] [address] August, [facility] [address] [id number] [address] [place] [address] August, Medicare welcome exam Z00.00 ; Chronic kidney failure N18.9 ; Anxiety F41.9 ; Chronic pain G89.29 ; Insomnia G47.00 ; Hyperlipidemia E78.5 ; HTN (hypertension) I10 and Thoracic back pain, unspecified back pain laterality, unspecified chronicity M54.6 [facility] [address] [id number] [address] [place] [address] Jul, [place] [address] [id number] [address] [place] [address] Jul, [place] [address] [id number] [address] [place] [address] Jul, [place] [address] [id number] [address] [place] [address] Jul, Anxiety F41.9 [place] [address] [id number] [address] [place] [address] Jul, Thoracic back pain, unspecif ied back pain laterality, unspecified chronicity M54.6 and Anxiety F41.9 [place] [address] [id number] [address] [place] [address] Jun, Thoracic back pain, unspecif ied back pain laterality, unspecified chronicity M54.6 and Anxiety F41.9 [address] [address] [id number] [address] [place] [address] May, Thoracic back pain, unspecif ied back pain laterality, unspecified chronicity M54.6 and Anxiety F41.9 [place] [address] [id number] [address] [place] [address] Apr, Thoracic back pain, unspecif ied back pain laterality, unspecified chronicity M54.6 and Anxiety F41.9 [place] [address] [id number] [address] [place] [address] Mar, [facility] [address] [facility] [id number] [address] [place] [address] Mar, Thoracic back pain, unspecif ied back pain laterality, unspecified chronicity M54.6 and Anxiety F41.9 [place] [address] [id number] [address] [place] [address] Mar, Thoracic back pain, unspecif ied back pain laterality, unspecified chronicity M54.6 ; HTN (hypertension) I10 ; Hyperlipidemia E78.5 and Anxiety F41.9 [place] [address] [address] Feb, Thoracic back pain, unspecif ied back pain laterality, unspecified chronicity M54.6 and Anxiety F41.9 [place] [address] [address] Nov, [place] [address] [id number] [address] [place] [address] Oct, [place] [address] [address] Oct, Thoracic back pain, unspecif ied back pain laterality, unspecified chronicity M54.6 [place] [address] [id number] Oct, HTN (hypertension) I10 ; Con stipation K59.00 ; Hyperlipidemia E78.5 ; Thoracic back pain, unspecified back pain laterality, unspecified chronicity M54.6 ; Chronic pain G89.29 ; Anxiety F41.9 ; Chronic kidney failure N18.9 ; Environmental allergies Z91.09 ; Vitamin D deficiency E55.9 and Primary insomnia F51.01 [facility] [id number] [address] [place] [address] Sep, Anxiety F41.9 [place] [id number] [place] [address] Sep, [facility] [address] [id number] [address] [place] [address] August, Anxiety F41.9 [facility] [address] [id number] [address] [place] [address] August, [facility] [address] [id number] [address] [place] [address] Jul, Anxiety F41.9 [facility] [address] [id number] [address] [place] [address] Jul, [facility] [address] [id number] [address] [place] [address] Jun, Anxiety F41.9 [facility] [address] [id number] [address] [place] [address] Jun, [facility] [address] [id number] [address] [place] [address] May, [facility] [address] [id number] [address] [place] [address] May, [facility] [address] [id number] [address] [place] [address] May, [facility] [address] [id number] [address] [place] [address] Apr, [facility] [address] [id number] [address] [place] [address] Apr, [facility] [address] [id number] [address] [place] [address] Apr, Anxiety F41.9 [facility] [address] [id number] [address] [place] [address] Apr, Anxiety F41.9 [facility] [address] [id number] [address] [place] [address] Apr, [facility] [id number] [place] [address] Mar, HTN (hypertension) I10 ; Phillip mor R25.1 ; Hypercholesterolemia E78.0 ; Constipation K59.00 ; Chronic pain G89.29 ; Hyperlipidemia E78.5 ; Insomnia G47.00 ; Anxiety F41.9 and Thoracic back pain, unspecified back pain laterality, unspecified chronicity M54.6 [facility] [address] [facility] [id number] [place] [address] Mar, Tremor R25.1 ; HTN (hyperten stas) I10 ; Hypercholesterolemia E78.0 ; Constipation K59.00 ; Chronic pain G89.29 ; Hyperlipidemia E78.5 ; Insomnia G47.00 ; Anxiety F41.9 and Thoracic back pain, unspecified back pain laterality, unspecified chronicity M54.6 [facility] [address] [id number] Mar, [facility] [address] [address] Mar, [facility] [address] [address] Feb, [facility] [address] [address] Jan, [facility] [address] [id number] Jan, [facility] [address] [id number] [address] [place] [address] Dec, [facility] [address] [id number] [address] [place] [address] Nov, [facility] [id number] [place] [address] Nov, [facility] [address] [id number] [place] [address] Oct, Anxiety F41.9 [facility] [id number] [place] [address] Oct, Chronic pain G89.29 [facility] [address] [facility] [id number] [address] [place] [address] Sep, [facility] [address] [facility] [id number] [address] [place] [address] Sep, [facility] [address] [facility] [id number] [address] [place] [address] Sep, [facility] [address] [facility] [id number] [address] [place] [address] Sep, [facility] [address] [facility] [id number] [address] [place] [address] Sep, Chronic pain syndrome G89.4 [facility] [address] [facility] [id number] [address] [place] [address] Sep, HTN (hypertension) I10 ; Chr onic pain G89.29 ; Hypercholesterolemia E78.0 ; Chronic kidney failure N18.9 ; Constipation, unspecified constipation type K59.00 ; Anxiety F41.9 and Thoracic back pain, unspecified back pain laterality, unspecified chronicity M54.6 [facility] [address] [facility] [id number] [address] [place] [address] August, Chronic pain syndrome G89.4 [facility] [address] [id number] [address] [place] [address] August, Chronic pain syndrome G89.4 [facility] [address] [id number] [address] [place] [address] Jul, Anxiety disorder, unspecifie d F41.9 and Chronic pain syndrome G89.4 [facility] [address] [facility] [id number] [address] [place] [address] Jul, Insomnia, unspecified G47.00 and Chronic pain syndrome G89.4 [facility] [address] [facility] [id number] [address] [place] [address] Jul, Allergic rhinitis J30.9 [facility] [address] [id number] [address] [place] [address] 15 Jul, 2015 Constipation, unspecified K5 9.00 [facility] [address] [id number] [address] [place] [address] Jul, [facility] [address] [facility] [id number] [address] [place] [address] Jun, [facility] [address] [id number] [address] [place] [address] Jun, [facility] [address] [facility] [id number] [address] [place] [address] Jun, [facility] [address] [facility] [id number] [address] [place] [address] Jun, [facility] [address] [facility] [id number] [address] [place] [address] Jun, [facility] [address] [facility] [id number] [address] [place] [address] Jun, [facility] [address] [facility] [id number] [address] [place] [address] May, [facility] [address] [facility] [id number] [address] [place] [address] May, [facility] [address] [facility] [id number] [address] [place] [address] May, Anxiety F41.9 ; Insomnia G47 .00 ; Hyperlipidemia E78.5 ; Chronic pain G89.29 ; HTN (hypertension) I10 ; Environmental allergies V15.09 and Constipation 564.00 [facility] [address] [facility] [id number] [address] [place] [address] Apr, [facility] [address] [facility] [id number] [address] [place] [address] Apr, [facility] [address] [facility] [id number] [address] [place] [address] Apr, [facility] [address] [place] [address] [id number] [address] [place] [phone] Mar, [facility] [address] [id number] Mar, [facility] [address] [place] [id number] [address] [place] [id number] Mar, [facility] [address] [id number] Feb, [facility] [address] [id number] Feb, [facility] [address] [id number] Feb, [facility] [address] [id number] Jan, HTN (hypertension) I10 ; Con stipation K59.00 ; Chronic pain G89.29 ; Hyperlipidemia E78.5 ; Hypercholesterolemia E78.0 ; Insomnia G47.00 and Anxiety F41.9 [facility] [address] [place] [id number] [address] [place] [id number] Jan, [facility] [address] [place] [id number] [address] [place] [phone] Dec, [facility] [address] [place] [id number] [address] [place] [id number] Nov, [facility] [address] [place] [id number] [address] [place] [phone] Oct, Chronic kidney disease, unsp ecified 585.9 ; Chronic pain syndrome 338.4 ; Hyperlipidemia 272.4 and Essential hypertension 401.9 [facility] [address] [place] [id number] [address] [place] [id number] Oct, Chronic kidney disease 585.9 [facility] [address] [place] [id number] [address] [place] [id number] Oct, [facility] [address] [facility] [id number] [address] [place] [id number] Oct, Chronic kidney disease, unsp ecified 585.9 ; Hypercalcemia 275.42 ; Hyperlipidemia 272.4 ; Essential hypertension 401.9 ; Chronic pain syndrome 338.4 ; Insomnia 780.52 ; Constipation 564.00 ; Environmental allergies V15.09 and Anxiety 300.00 [facility] [address] [facility] [id number] [address] [place] [id number] Oct, Chronic kidney disease 585.9 [facility] [address] [facility] [id number] [address] [place] [id number] Oct, [facility] [address] [facility] [id number] [address] [place] [address] Oct, Chronic kidney disease 585.9 and Hyperlipidemia 272.4 [facility] [address] [facility] [id number] [address] [place] [id number] Oct, [facility] [address] [facility] [id number] [address] [place] [id number] Oct, [facility] [address] [facility] [id number] [address] [place] [address] Sep, [facility] [address] [facility] [id number] [address] [place] [address] Sep, [facility] [address] [facility] [id number] [address] [place] [address] Sep, Chronic kidney disease 585.9 and Hyperlipidemia 272.4 [facility] [address] [facility] [id number] [address] [place] [id number] Sep, [facility] [address] [facility] [id number] [address] [place] [id number] August, [facility] [address] [facility] [id number] [address] [place] [id number] August, [facility] [address] [facility] [id number] [address] [place] [id number] 14 Jul, 2014 [facility] [address] [id number] [address] [place] [address], [place] [address] 13 Jul, 2014 [facility] [address] [id number] [address] [place] [address], [place] [address] Jun, [facility] [address] [id number] [address] [place] [address], [place] [address] Jun, [facility] [address] [id number] [address] [place] [address], [place] [address] 16 Jun, 2014 [facility] [address] [id number] [address] [place] [address], [place] [address] Jun, [facility] [address] [id number] [address] [place] [address], [place] [address] Jun, [facility] [address] [id number] [address] [place] [address], [place] [address] Jun, [facility] [address] [id number] [address] [place] [address], [place] [address] Jun, [facility] [address] [id number] [address] [place] [address], [place] [address] Jun, [facility] [address] [id number] [address] [place] [address], [place] [address] May, [facility] [address] [id number] [address] [place] [address], [place] [address] May, [facility] [address] [id number] [address] [place] [address], [place] [address] May, [facility] [address] [id number] [address] [place] [address], [place] [address] May, [facility] [address] [id number] [address] [place] [address], [place] [address] Apr, [facility] [address] [id number] [address] [place] [address], [place] [address] Apr, [facility] [address] [id number] [address] [place] [address], [place] [address] Apr, [facility] [address] [id number] [address] [place] [address], [place] [address] Apr, [facility] [address] [id number] [address] [place] [address], [place] [address] Apr, [facility] [address] [id number] [address] [place] [address], [place] [address] Apr, [facility] [address] [id number] [address] [place] [address], [place] [address] Apr, [facility] [address] [id number] [address] [place] [address], [place] [address] Apr, [facility] [address] [id number] [address] [place] [address], [place] [address] Apr, [facility] [address] [id number] [address] [place] [address], [place] [address] Apr, [facility] [address] [id number] [address] [place] [address], [place] [address] Apr, [facility] [address] [id number] [address] [place] [address], [place] [address] Mar, [facility] [address] [id number] [address] [place] [address], [place] [address] Mar, [facility] [address] [id number] [address] [place] [address], [place] [address] Feb, [facility] [address] [id number] [address] [place] [address], [place] [address] Feb, [facility] [address] [id number] [address] [place] [address], [place] [address] Feb, [facility] [address] [id number] [address] [place] [address], [place] [address] Feb, [facility] [address] [id number] [address] [place] [address], [place] [address] Feb, [facility] [address] [id number] [address] [place] [address], [place] [address] Feb, [facility] [address] [id number] [address] [place] [address], [place] [address] Feb, [facility] [address] [id number] [address] [place] [address], [place] [address] Feb, [facility] [address] [id number] [address] [place] [address], [place] [address] Feb, [facility] [address] [id number] [address] [place] [address], [place] [address] Feb, [facility] [address] [id number] [address] [place] [address], [place] [address] Jan, [facility] [address] [id number] [address] [place] [address], [place] [address] Jan, [facility] [address] [id number] [address] [place] [address] Jan, [facility] [address] [id number] [address] [place] [address], [place] [address] Jan, [facility] [address] [id number] [address] [place] [id number] Jan, [facility] [address] [id number] [address] [place] [address] Jan, [facility] [address] [id number] [address] [place] [address] Jan, [facility] [address] [id number] [address] [place] [address], [place] [address] Jan, [facility] [address] [id number] [address] [place] [address], [place] [address] Jan, [facility] [address] [id number] [address] [place] [address] Jan, [facility] [address] [id number] [address] [place] [address] Jan, [facility] [address] [id number] [address] [place] [address], [place] [address] Dec, 2013 [facility] [address] [id number] [address] [place] [address], [place] [address] Dec, [facility] [address] [id number] [address] [place] [address], [place] [address] Dec, 2013 [facility] [address] [id number] [address] [place] [address], [place] [address] Dec, 2013 [facility] [address] [id number] [address] [place] [address], [place] [address] 18 Dec, 2013 [facility] [address] [id number] [address] [place] [address], [place] [address] Dec, [facility] [address] [id number] [address] [place] [address], [place] [address] Dec, [facility] [address] [id number] [address] [place] [address], [place] [address] Dec, [facility] [address] [id number] [address] [place] [address], [place] [address] Nov, [facility] [address] [id number] [address] [place] [address], [place] [address] Nov, [facility] [address] [id number] [address] [place] [address], [place] [address] Nov, [facility] [address] [id number] [address] [place] [address], [place] [address] Nov, [facility] [address] [id number] [address] [place] [address], [place] [address] Nov, [facility] [address] [id number] [address] [place] [address], [place] [address] Nov, [facility] [address] [id number] [address] [place] [address], [place] [address] Nov, [facility] [address] [id number] [facility] [place] [address] Nov, [facility] [address] [id number] [address] [place] [address], [place] [address] Oct, [facility] [address] [id number] [address] [place] [address], [place] [address] Oct, [facility] [address] [id number] [address] [place] [address], [place] [address] Oct, [facility] [address] [id number] [address] [place] [address], [place] [address] Oct, [facility] [address] [id number] [address] [place] [address], [place] [address] Sep, [facility] [address] [id number] [address] [place] [address], [place] [address] Sep, [facility] [address] [id number] [address] [place] [address], [place] [address] Sep, [facility] [address] [id number] [address] [place] [address], [place] [address] Sep, [facility] [address] [id number] [address] [place] [address], [place] [address] Sep, [facility] [address] [id number] [address] [place] [address], [place] [address] Sep, [facility] [address] [id number] [address] [place] [address], [place] [address] Sep, [facility] [address] [id number] [address] [place] [address], [place] [address] Sep, [facility] [address] [id number] [address] [place] [address], [place] [address] August, [facility] [address] [id number] [address] [place] [address], [place] [address] August, [facility] [address] [id number] [address] [place] [address], [place] [address] August, [facility] [address] [id number] [facility] [place] [address] August, [facility] [address] [id number] [address] [place] [address], [place] [address] August, [facility] [address] [id number] [address] [place] [address], [place] [address] August, [facility] [address] [id number] [address] [place] [address], [place] [address] August, [facility] [address] [id number] [address] [place] [address], [place] [address] August, [facility] [address] [id number] [address] [place] [address], [place] [address] August, [facility] [address] [id number] [address] [place] [address], [place] [address] August, [facility] [address] [id number] [address] [place] [address], [place] [address] Jul, [facility] [address] [id number] [address] [place] [address], [place] [address] Jul, [facility] [address] [id number] [address] [place] [address], [place] [address] Jul, [facility] [address] [id number] [address] [place] [address], [place] [address] Jul, [facility] [address] [id number] [address] [place] [address], [place] [address] Jul, [facility] [address] [id number] [address] [place] [address], [place] [address] Jul, [facility] [address] [id number] [address] [place] [address], [place] [address] Jul, [facility] [address] [id number] [address] [place] [address], [place] [address] Jul, [facility] [address] [id number] [facility] [place] [address] Jun, [facility] [address] [id number] [address] [place] [address], [place] [address] Jun, [facility] [address] [id number] [address] [place] [address], [place] [address] Jun, [facility] [address] [id number] [address] [place] [address], [place] [address] Jun, [facility] [address] [id number] [address] [place] [address], [place] [address] Jun, [facility] [address] [id number] [address] [place] [address], [place] [address] Jun, [facility] [address] [id number] [address] [place] [address], [place] [address] May, [facility] [address] [id number] [address] [place] [address], [place] [address] May, [facility] [address] [id number] [address] [place] [address], [place] [address] May, [facility] [address] [id number] [address] [place] [address], [place] [address] May, [facility] [address] [id number] [address] [place] [address], [place] [address] May, [facility] [address] [id number] [address] [place] [address], [place] [address] May, [facility] [address] [id number] [address] [place] [address], [place] [address] May, [facility] [address] [id number] [address] [place] [address], [place] [address] Apr, [facility] [address] [id number] [address] [place] [address], [place] [address] Apr, [facility] [address] [id number] [address] [place] [address], [place] [address] Apr, [facility] [address] [id number] [address] [place] [address], [place] [address] 14 Apr, 2013 [facility] [address] [id number] [address] [place] [address], [place] [address] 10 Apr, 2013 [facility] [address] [id number] [address] [place] [address], [place] [address] 10 Apr, 2013 [facility] [address] [id number] [address] [place] [address], [place] [address] 31 Mar, 2013 [facility] [address] [id number] [address] [place] [address], [place] [address] 31 Mar, 2013 [facility] [address] [id number] [address] [place] [address], [place] [address] Mar, [facility] [address] [id number] [address] [place] [address], [place] [address] Mar, [facility] [address] [id number] [address] [place] [address], [place] [address] Mar, [facility] [address] [id number] [address] [place] [address], [place] [address] Mar, [facility] [address] [id number] [address] [place] [address], [place] [address] 16 Mar, 2013 [facility] [address] [id number] [address] [place] [address], [place] [address] 16 Mar, 2013 [facility] [address] [id number] [address] [place] [address], [place] [address] Mar, [facility] [address] [id number] [address] [place] [address], [place] [address] Mar, [facility] [address] [id number] [address] [place] [address], [place] [address] Feb, [facility] [address] [id number] [address] [place] [address], [place] [address] Feb, [facility] [address] [id number] [address] [place] [address], [place] [address] Feb, [facility] [address] [id number] [address] [place] [address], [place] [address] Feb, [facility] [address] [id number] [address] [place] [address], [place] [address] Feb, [facility] [address] [id number] [address] [place] [address], [place] [address] Feb, [facility] [address] [id number] [address] [place] [address], [place] [address] Feb, [facility] [address] [id number] [address] [place] [address], [place] [address] Feb, [facility] [address] [id number] [address] [place] [address], [place] [address] Feb, [facility] [address] [id number] [address] [place] [address], [place] [address] Feb, [facility] [address] [id number] [address] [place] [address], [place] [address] Jan, [facility] [address] [id number] [address] [place] [address], [place] [address] Jan, [facility] [address] [id number] [address] [place] [address], [place] [address] Jan, [facility] [address] [id number] [address] [place] [address], [place] [address] Jan, [facility] [address] [id number] [address] [place] [address], [place] [address] Jan, [facility] [address] [id number] [address] [place] [address], [place] [address] Jan, [facility] [address] [id number] [address] [place] [address], [place] [address] 17 Jan, 2013 [facility] [address] [id number] [address] [place] [address], [place] [address] Jan, [facility] [address] [id number] [address] [place] [address], [place] [address] Jan, [facility] [address] [id number] [address] [place] [address], [place] [address] Dec, [facility] [address] [id number] [address] [place] [address], [place] [address] Dec, [facility] [address] [id number] [address] [place] [address], [place] [address] Dec, [facility] [address] [id number] [address] [place] [address], [place] [address] Dec, [facility] [address] [id number] [address] [place] [address], [place] [address] Nov, [facility] [address] [id number] [address] [place] [address], [place] [address] Nov, [facility] [address] [id number] [address] [place] [address], [place] [address] Nov, [facility] [address] [id number] [address] [place] [address], [place] [id number] Nov, [facility] [address] [id number] [address] [place] [address], [place] [id number] Nov, [facility] [address] [id number] [address] [place] [address], [place] [id number] Nov, [facility] [address] [id number] [address] [place] [address], [place] [id number] Oct, [facility] [address] [id number] [address] [place] [address], [place] [id number] Oct, [facility] [address] [id number] [address] [place] [address], [place] [id number] Oct, [facility] [address] [id number] [address] [place] [address], [place] [address] Oct, [facility] [address] [id number] [address] [place] [address], [place] [id number] 27 Sep, 2012 [facility] [address] [id number] [address] [place] [address], [place] [id number] 19 Sep, 2012 [facility] [address] [id number] [address] [place] [address], [place] [id number] 17 Sep, 2012 [facility] [address] [id number] [address] [place] [address], [place] [id number] 14 Sep, 2012 [facility] [address] [id number] [address] [place] [address], [place] [id number] 10 Sep, 2012 [facility] [address] [id number] [address] [place] [address], [place] [address] August, [facility] [address] [id number] [address] [place] [address], [place] [address] 2012 [facility] [address] [id number] [address] [place] [address], [place] [address] Jul, [facility] [address] [id number] [address] [place] [address], [place] [address] Jul, [facility] [address] [id number] [address] [place] [address], [place] [id number] 15 Jul, 2012 [facility] [address] [id number] [address] [place] [address], [place] [id number] 09 Jul, 2012 [facility] [address] [id number] [address] [place] [address], [place] [id number] 08 Jul, 2012 [facility] [address] [id number] [address] [place] [address], [place] [id number] 26 Jun, 2012 [facility] [address] [id number] [address] [place] [address], [place] [id number] 20 Jun, 2012 [facility] [address] [id number] [address] [place] [address], [place] [id number] 15 Jun, 2012 [facility] [address] [id number] [address] [place] [address], [place] [id number] 06 Jun, 2012 [facility] [address] [id number] [address] [place] [address], [place] [id number] Jun, [facility] [address] [id number] [address] [place] [address], [place] [address] May, [facility] [address] [id number] [address] [place] [address], [place] [address] May, [facility] [address] [id number] [address] [place] [address], [place] [id number] May, [facility] [address] [id number] [address] [place] [address], [place] [id number] May, [facility] [address] [id number] [address] [place] [address], [place] [id number] May, [facility] [address] [id number] [address] [place] [address], [place] [id number] May, [facility] [address] [id number] [address] [place] [address], [place] [id number] May, [facility] [address] [id number] [address] [place] [address], [place] [id number] May, [facility] [address] [id number] [address] [place] [address], [place] [id number] May, [facility] [address] [id number] [address] [place] [address], [place] [address] Apr, [facility] [address] [id number] [address] [place] [address], [place] [id number] Apr, [facility] [address] [id number] [address] [place] [address], [place] [id number] Apr, [facility] [address] [id number] [address] [place] [address], [place] [address] Apr, [facility] [address] [id number] [address] [place] [address], [place] [address] Apr, [facility] [address] [id number] [address] [place] [address], [place] [id number] Mar, [facility] [address] [id number] [address] [place] [address], [place] [id number] Mar, [facility] [address] [id number] [address] [place] [address], [place] [address] Mar, [facility] [address] [id number] [address] [place] [address], [place] [address] Mar, [facility] [address] [id number] [address] [place] [address], [place] [id number] Mar, [facility] [address] [id number] [address] [place] [address], [place] [address] Mar, [facility] [address] [id number] [address] [place] [address], [place] [id number] Mar, [facility] [address] [id number] [address] [place] [address], [place] [address] Mar, [facility] [address] [id number] [address] [place] [address], [place] [id number] Mar, [facility] [address] [id number] [address] [place] [address], [place] [address] Mar, [facility] [address] [id number] [address] [place] [address], [place] [address] 30 Feb, 2012 [facility] [address] [id number] [address] [place] [address], [place] [id number] Feb, [facility] [address] [id number] [address] [place] [address], [place] [address] Feb, [facility] [address] [id number] [address] [place] [address], [place] [id number] Feb, [facility] [address] [id number] [address] [place] [address], [place] [id number] Feb, [facility] [facility] [address] [id number] [address] [place] [address], [place] [address] Feb, [facility] [address] [id number] [address] [place] [address], [place] [id number] 20 Feb, 2012 [facility] [address] [id number] [address] [place] [address], [place] [address] 20 Feb, 2012 [facility] [address] [id number] [address] [place] [address], [place] [id number] 16 Feb, 2012 [facility] [address] [id number] [address] [place] [address], [place] [id number] 16 Feb, 2012 [facility] [address] [id number] [address] [place] [address], [place] [id number] 13 Feb, 2012 [facility] [address] [id number] [address] [place] [address], [place] [id number] 13 Feb, 2012 [facility] [address] [id number] [address] [place] [address], [place] [id number] 12 Feb, 2012 [facility] [address] [id number] [address] [place] [address], [place] [address] Feb, [facility] [address] [id number] [address] [place] [address], [place] [address] 09 Feb, 2012 [facility] [address] [id number] [address] [place] [address], [place] [address] 08 Feb, 2012 [facility] [address] [id number] [address] [place] [address], [place] [address] Feb, [facility] [address] [id number] [address] [place] [address], [place] [address] Feb, [facility] [address] [id number] [address] [place] [address], [place] [id number] Jan, [facility] [address] [id number] [address] [place] [address], [place] [address] Jan, [facility] [address] [id number] [address] [place] [address], [place] [address] Jan, [facility] [address] [id number] [address] [place] [address], [place] [address] Jan, [facility] [address] [id number] [address] [place] [address], [place] [address] Jan, [facility] [address] [id number] [address] [place] [address], [place] [address] Jan, [facility] [address] [id number] [address] [place] [address], [place] [address] Jan, [facility] [address] [id number] [address] [place] [address], [place] [address] Jan, [facility] [address] [id number] [address] [place] [address], [place] [address] Jan, [facility] [address] [id number] [address] [place] [address], [place] [address] Jan, [facility] [address] [id number] [address] [place] [address], [place] [address] 24 Dec, 2011 [facility] [address] [id number] [address] [place] [address], [place] [id number] 18 Dec, 2011 [facility] [address] [id number] [address] [place] [address], [place] [address] Dec, [facility] [address] [id number] [address] [place] [id number] Dec, [facility] [address] [id number] [address] [place] [id number] Nov, [facility] [address] [id number] [address] [place] [phone] Nov, [facility] [address] [id number] [address] [place] [address], [place] [address] Nov, [facility] [address] [id number] [address] [place] [address], [place] [address] Nov, [facility] [address] [id number] [address] [place] [id number] Nov, [facility] [address] [id number] [address] [place] [id number] Nov, [facility] [address] [id number] [address] [place] [address], [place] [address] Oct, [facility] [address] [id number] [address] [place] [address], [place] [address] Oct, [facility] [address] [id number] [address] [place] [address], [place] [id number] Oct, [facility] [address] [id number] [address] [place] [address], [place] [address] Oct, [facility] [address] [id number] [address] [place] [address], [place] [id number] Oct, [facility] [address] [id number] [address] [place] [address], [place] [address] Sep, [facility] [address] [id number] [address] [place] [address], [place] [address] Sep, [facility] [address] [id number] [address] [place] [address], [place] [address] Sep, [facility] [address] [id number] [address] [place] [address], [place] [address] Sep, [facility] [address] [id number] [address] [place] [address], [place] [address] Sep, [facility] [address] [id number] [address] [place] [address], [place] [address] August, [facility] [address] [id number] [address] [place] [address], [place] [address] August, [facility] [address] [id number] [address] [place] [address], [place] [address] August, [facility] [address] [id number] [address] [place] [address], [place] [address] August, [facility] [address] [id number] [address] [place] [address], [place] [address] Jul, [facility] [address] [id number] [facility] [place] [address] 24 Jul, 2011 [facility] [address] [id number] [address] [place] [address], [place] [address] 19 Jul, 2011 [facility] [address] [id number] [address] [place] [address], [place] [address] 18 Jul, 2011 [facility] [address] [id number] [address] [place] [address], [place] [address] Jul, [facility] [address] [id number] [address] [place] [address], [place] [address] 12 Jul, 2011 [facility] [address] [id number] [address] [place] [address], [place] [address] 11 Jul, 2011 [facility] [address] [id number] [address] [place] [address], [place] [address] 10 Jul, 2011 [facility] [address] [id number] [address] [place] [address], [place] [address] Jul, [facility] [address] [id number] [address] [place] [address], [place] [address] 07 Jul, 2011 [facility] [address] [id number] [address] [place] [address], [place] [address] 05 Jul, 2011 [facility] [address] [id number] [address] [place] [address], [place] [address] Jul, [facility] [address] [id number] [address] [place] [address], [place] [address] Jul, [facility] [address] [id number] [address] [place] [address], [place] [address] Jul, [facility] [address] [id number] [address] [place] [address], [place] [address] 28 Jun, 2011 [facility] [address] [id number] [address] [place] [address], [place] [address] Jun, [facility] [address] [id number] [address] [place] [address], [place] [address] 20 Jun, 2011 [facility] [address] [id number] [address] [place] [address], [place] [address] 16 Jun, 2011 [facility] [address] [id number] [address] [place] [address], [place] [address] 27 May, 2011 [facility] [address] [id number] [address] [place] [address], [place] [address] 16 May, 2011 [facility] [address] [id number] [address] [place] [address], [place] [address] May, [facility] [address] [id number] [address] [place] [address], [place] [address] Apr, [facility] [address] [id number] [address] [place] [address], [place] [address] 18 Apr, 2011 [facility] [address] [id number] [address] [place] [address], [place] [address] Apr, [facility] [address] [id number] [address] [place] [address], [place] [address] Apr, [facility] [address] [id number] [address] [place] [address], [place] [address] Apr, [facility] [address] [id number] [address] [place] [address], [place] [address] Mar, [facility] [address] [id number] [address] [place] [address], [place] [address] Mar, [facility] [address] [id number] [address] [place] [address], [place] [address] Mar, [facility] [address] [id number] [address] [place] [address], [place] [address] Mar, [facility] [address] [id number] [address] [place] [address], [place] [address] Mar, [facility] [address] [id number] [address] [place] [address], [place] [address] Mar, [facility] [address] [id number] [address] [place] [address], [place] [address] 05 Mar, 2011 [facility] [address] [id number] [address] [place] [address], [place] [address] 29 Feb, 2011 [facility] [address] [id number] [address] [place] [address], [place] [address] 25 Feb, 2011 [facility] [address] [id number] [address] [place] [address], [place] [address] Feb, [facility] [address] [id number] [address] [place] [address], [place] [address] 22 Feb, 2011 [facility] [address] [id number] [address] [place] [address], [place] [address] 16 Feb, 2011 [facility] [address] [id number] [address] [place] [address], [place] [address] 14 Feb, 2011 [facility] [address] [id number] [address] [place] [address], [place] [id number] 10 Feb, 2011 [facility] [address] [id number] [address] [place] [address], [place] [address] 31 Jan, 2011 [facility] [address] [id number] [address] [place] [address], [place] [address] 31 Jan, 2011 [facility] [address] [id number] [address] [place] [address], [place] [address] 31 Jan, 2011 [facility] [address] [id number] [address] [place] [address], [place] [address] 18 Jan, 2011 [facility] [address] [id number] [address] [place] [address], [place] [address] 17 Jan, 2011 [facility] [address] [id number] [address] [place] [address], [place] [address] 17 Jan, 2011 [facility] [address] [id number] [address] [place] [address], [place] [address] Jun, [facility] [address] [id number] [address] [place] [address], [place] [address] 30 Mar, 2010 [facility] [address] [id number] [address] [place] [address], [place] [address] 20 Mar, 2010 [facility] [address] [id number] [address] [place] [address], [place] [address] 14 Mar, [address] [facility] [address] [id number] [address] [place] [address], [place] [address] 14 Mar, 2010 [facility] [address] [id number] [address] [place] [address], [place] [address] 13 Mar, 2010 [facility] [address] [id number] [address] [place] [address], [place] [address] 07 Mar, 2010 [facility] [address] [id number] [address] [place] [address], [place] [address] 02 Mar, 2010 [facility] [address] [id number] [address] [place] [address], [place] [address] Mar, [facility] [address] [id number] [address] [place] [address], [place] [address] 30 Feb, 2010 [facility] [address] [id number] [address] [place] [address], [place] [address] 29 Feb, 2010 [facility] [address] [id number] [address] [place] [address], [place] [address] 17 Feb, 2010 [facility] [address] [id number] [address] [place] [address], [place] [id number] 17 Feb, 2010 [facility] [address] [id number] [address] [place] [id number] 16 Feb, 2010 [facility] [address] [id number] [address] [place] [address], [place] [address] 08 Feb, 2010 [facility] [address] [id number] [address] [place] [address], [place] [address] 04 Feb, 2010 [facility] [address] [id number] [address] [place] [address], [place] [address] Feb, [facility] [address] [id number] [address] [place] [id number] Jan, [facility] [address] [id number] [address] [place] [id number] Jan, [facility] [address] [id number] [address] [place] [id number] Jan, [facility] [address] [id number] [address] [place] [phone] Jan, [facility] [address] [id number] [address] [place] [id number] 29 Mar, 2009 [facility] [address] [id number] [address] [place] [id number] Mar, [facility] [address] [id number] [address] [place] [id number] Mar, [facility] [address] [id number] [address] [place] [id number] Mar, [facility] [address] [id number] [address] [place] [id number] 14 Mar, 2009 [facility] [address] [id number] [address] [place] [phone] Mar, [facility] [address] [id number] [address] [place] [phone] Feb, [facility] [address] [id number] [address] [place] [phone] Feb, [facility] [address] [id number] [address] [place] [phone] Jan, [facility] [address] [id number] [address] [place] [phone] Sep, [facility] [address] [id number] [address] [place] [id number] 18 May, 2008 IMMUNIZATIONS No Known Immunizations [...] Surgical History Left ear surgery Hospitalization History [facility] in [place]- Spontane ous Pneumothorax Hospitalization History [facility]- Colon resection Hospitalization History via [facility] - diarrhea/ couldnt urin ate nov 2017 Hospitalization History pain /hip to foot right side 10/16/19 19
--- OUTSIDE RECORDS SUMMARY | 2019-08-28 09:13 | XMS REPORT ---
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 Name Role Phone STEPHAN DE LEON Unavailable PROBLEMS Type Condition ICD9-CM Code ACK63-TJ Code Onset Dates Condition S tatus SNOMED Code Problem Insomnia G47.00 Active 828798209 Problem Anxiety F41.9 Active 92399469 Problem HTN (hypertension) I10 Active 3 5609147 Problem Hyperlipidemia E78.5 Active 63016 004 Problem Thoracic back pain, unspecif ied back pain laterality, unspecified chronicity M54.6 Active 054269710 Problem Vitamin D deficiency E55.9 Active 73526149 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 56011452 Problem Chronic pain G89.29 Active 3129313 1 Problem Schizophrenia, unspecified type F20.9 Active 15474147 Problem Constipation K59.00 Active 9878532 8 Problem Environmental allergies Z91.09 Active 785194360 Problem Primary insomnia F51.01 Active 397 2004 Problem Chronic kidney disease, stage III (moderate) N18.3 Active 731182651 Problem Vision loss H54.7 Active 31358957 1 ALLERGIES No Information ENCOUNTERS Encounter Location Date Diagnosis [place] [address] [place] [id number] [place] [address] Oct, [facility] [id number] [place] [address] Oct, Anxiety F41.9 and Thoracic b ack pain, unspecified back pain laterality, unspecified chronicity M54.6 [facility] [address] [place] [id number] [place] [address] Oct, Schizophrenia, unspecified t ype F20.9 and Acute kidney injury N17.9 [facility] [address] [address] [id number] [place] [address] Oct, [facility] [address] [id number] [address] [place] [address] Oct, [facility] [address] [id number] [address] [place] [address] Oct, Thoracic back pain, unspecif ied back pain laterality, unspecified chronicity M54.6 [facility] [address] [id number] [address] [place] [address] Oct, [facility] [address] [id number] [address] [place] [address] Oct, [facility] [address] [id number] [address] [place] [address] Sep, Anxiety F41.9 [facility] [address] [id number] [address] [place] [address] Sep, [facility] [address] [id number] [address] [place] [address] Sep, Thoracic back pain, unspecif ied back pain laterality, unspecified chronicity M54.6 [facility] [address] [id number] [address] [place] [address] Sep, [facility] [address] [id number] [address] [place] [address] Sep, [facility] [address] [id number] [address] [place] [address] Sep, [facility] [address] [id number] [address] [place] [address] Sep, [facility] [address] [id number] [address] [place] [address] Sep, [facility] [address] [id number] [address] [place] [address] Sep, [facility] [address] [id number] [address] [place] [address] Sep, Chronic pain G89.29 ; Chroni c kidney disease, stage III (moderate) N18.3 ; Hyperlipidemia E78.5 and Insomnia G47.00 [facility] [address] [id number] [address] [place] [address] Sep, Thoracic back pain, unspecif ied back pain laterality, unspecified chronicity M54.6 [facility] [address] [id number] [address] [place] [address] August, Anxiety F41.9 [facility] [address] [id number] [address] [place] [address] August, Thoracic back pain, unspecif ied back pain laterality, unspecified chronicity M54.6 and Anxiety F41.9 [facility] [address] [id number] [address] [place] [address] August, 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 [facility] [address] [id number] [address] [place] [address] August, 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 [facility] [address] [id number] [address] [place] [address] August, [facility] [address] [id number] [address] [place] [address] August, [facility] [address] [id number] [address] [place] [address] August, Thoracic back pain, unspecif ied back pain laterality, unspecified chronicity M54.6 [facility] [address] [id number] [address] [place] [address] August, [facility] [address] [id number] [address] [place] [address] August, Anxiety F41.9 and Thoracic b ack pain, unspecified back pain laterality, unspecified chronicity M54.6 [facility] [address] [id number] [address] [place] [address] Jul, [facility] [address] [id number] [address] [place] [address] Jul, Thoracic back pain, unspecif ied back pain laterality, unspecified chronicity M54.6 [facility] [address] [id number] [address] [place] [address] Jun, Anxiety F41.9 and Thoracic b ack pain, unspecified back pain laterality, unspecified chronicity M54.6 [facility] [address] [id number] [address] [place] [address] Jun, Anxiety F41.9 and Thoracic b ack pain, unspecified back pain laterality, unspecified chronicity M54.6 [place] [address] [facility] [id number] [address] [place] [address] Jun, Thoracic back pain, unspecif ied back pain laterality, unspecified chronicity M54.6 [place] [address] [facility] [id number] [address] [place] [address] Jun, Anxiety F41.9 and Thoracic b ack pain, unspecified back pain laterality, unspecified chronicity M54.6 [place] [address] [facility] [id number] [address] [place] [address] May, [facility] [address] [facility] [id number] [address] [place] [address] May, [facility] [address] [facility] [id number] [address] [place] [address] May, [facility] [address] [facility] [id number] [address] [place] [address] May, Anxiety F41.9 and Encounter for medication monitoring Z51.81 [place] [address] [facility] [id number] [address] [place] [address] 05 May, 2018 Anxiety F41.9 and Thoracic b ack pain, unspecified back pain laterality, unspecified chronicity M54.6 [place] [address] [facility] [id number] [address] [place] [address] Apr, Hyperlipidemia 272.4 [facility] [address] [id number] [address] [place] [address] Apr, Chronic pain G89.29 ; Anxiet y F41.9 ; Cervical radiculopathy M54.12 and Vision loss H54.7 [facility] [address] [id number] [address] [place] [address] Apr, [facility] [address] [id number] [address] [place] [address] Apr, Anxiety F41.9 and Thoracic b ack pain, unspecified back pain laterality, unspecified chronicity M54.6 [place] [address] [id number] [address] [place] [address] Mar, [place] [address] [id number] [address] [place] [address] Mar, Anxiety F41.9 and Thoracic b ack pain, unspecified back pain laterality, unspecified chronicity M54.6 [place] [address] [id number] [address] [place] [address] Feb, Anxiety F41.9 and Thoracic b ack pain, unspecified back pain laterality, unspecified chronicity M54.6 [place] [address] [id number] [address] [place] [address] Feb, Thoracic back pain, unspecif ied back pain laterality, unspecified chronicity M54.6 [facility] [address] [id number] [address] [place] [address] Jan, [facility] [address] [id number] [address] [place] [address] Jan, Anxiety F41.9 and Thoracic b ack pain, unspecified back pain laterality, unspecified chronicity M54.6 [facility] [address] [id number] [address] [place] [address] Dec, Diarrhea of presumed infecti ous origin R19.7 [facility] [address] [id number] [address] [place] [address] 19 Dec, 2017 Diarrhea of presumed infecti ous origin R19.7 [facility] [address] [id number] [address] [place] [address] 18 Dec, 2017 Thoracic back pain, unspecif ied back pain laterality, unspecified chronicity M54.6 [facility] [address] [id number] [address] [place] [address] 17 Dec, 2017 [facility] [address] [id number] [address] [place] [address] 17 Dec, 2017 Anxiety F41.9 and Thoracic b ack pain, unspecified back pain laterality, unspecified chronicity M54.6 [facility] [address] [id number] [address] [place] [address] 13 Dec, 2017 Diarrhea of presumed infecti ous origin R19.7 [facility] [address] [id number] [address] [place] [address] 13 Dec, 2017 [facility] [address] [id number] [address] [place] [address] 12 Dec, 2017 Anxiety F41.9 and Thoracic b ack pain, unspecified back pain laterality, unspecified chronicity M54.6 [facility] [address] [id number] [address] [place] [address] Dec, Anxiety F41.9 and Thoracic b ack pain, unspecified back pain laterality, unspecified chronicity M54.6 [facility] [address] [place] [id number] Dec, Diarrhea of presumed infectious origin R 19.7 ; Anxiety F41.9 ; Thoracic back pain, unspecified back pain laterality, unspecified chronicity M54.6 and HTN (hypertension) I10 [facility] [address] [id number] [address] [place] [address] 05 Dec, 2017 Anxiety F41.9 [facility] [address] [place] [id number] Dec, Anxiety F41.9 ; Diarrhea of presumed inf ectious origin R19.7 ; Generalized abdominal pain R10.84 and Localized edema R60.0 [place] [address] [place] [id number] [address] [place] [address] Nov, [facility] [address] [place] [id number] Nov, Anxiety F41.9 ; Urinary retention R33.9 ; Diarrhea of presumed infectious origin R19.7 ; Weakness R53.1 ; Acute kidney failure, unspecified N17.9 ; Chronic kidney disease, stage III (moderate) N18.3 and Thoracic back pain, unspecified back pain laterality, unspecified chronicity M54.6 [place] [address] [address] Oct, Thoracic back pain, unspecif ied back pain laterality, unspecified chronicity M54.6 and Anxiety F41.9 [place] [address] [place] [id number] [address] [place] [address] Sep, Thoracic back pain, unspecif ied back pain laterality, unspecified chronicity M54.6 and Anxiety F41.9 [place] [address] [place] [id number] [address] [place] [address] Sep, Thoracic back pain, unspecif ied back pain laterality, unspecified chronicity M54.6 ; Anxiety F41.9 and Encounter for medication monitoring Z51.81 [place] [address] [place] [id number] [address] [place] [address] August, [place] [address] [address] August, Thoracic back pain, unspecif ied back pain laterality, unspecified chronicity M54.6 and Anxiety F41.9 [place] [address] [place] [id number] [address] [place] [address] August, Hyperlipidemia E78.5 and HTN (hypertension) I10 [place] [address] [id number] [address] [place] [address] August, [facility] [address] [id number] [address] [place] [address] August, Medicare welcome exam Z00.00 ; Chronic kidney failure N18.9 ; Anxiety F41.9 ; Chronic pain G89.29 ; Insomnia G47.00 ; Hyperlipidemia E78.5 ; HTN (hypertension) I10 and Thoracic back pain, unspecified back pain laterality, unspecified chronicity M54.6 [facility] [address] [id number] [address] [place] [address] Jul, [place] [address] [id number] [address] [place] [address] Jul, [place] [address] [id number] [address] [place] [address] Jul, [place] [address] [id number] [address] [place] [address] Jul, Anxiety F41.9 [place] [address] [id number] [address] [place] [address] Jul, Thoracic back pain, unspecif ied back pain laterality, unspecified chronicity M54.6 and Anxiety F41.9 [place] [address] [id number] [address] [place] [address] Jun, Thoracic back pain, unspecif ied back pain laterality, unspecified chronicity M54.6 and Anxiety F41.9 [place] [address] [id number] [address] [place] [address] May, Thoracic back pain, unspecif ied back pain laterality, unspecified chronicity M54.6 and Anxiety F41.9 [place] [address] [id number] [address] [place] [address] Apr, Thoracic back pain, unspecif ied back pain laterality, unspecified chronicity M54.6 and Anxiety F41.9 [place] [address] [place] [id number] [place] [address] Mar, [facility] [address] [facility] [id number] [address] [place] [address] Mar, Thoracic back pain, unspecif ied back pain laterality, unspecified chronicity M54.6 and Anxiety F41.9 [place] [address] [place] [id number] [place] [address] Mar, Thoracic back pain, unspecif ied back pain laterality, unspecified chronicity M54.6 ; HTN (hypertension) I10 ; Hyperlipidemia E78.5 and Anxiety F41.9 [place] [address] [address] Feb, Thoracic back pain, unspecif ied back pain laterality, unspecified chronicity M54.6 and Anxiety F41.9 [place] [address] [address] Nov, [place] [address] [place] [id number] [place] [address] Oct, [place] [address] [address] Oct, Thoracic back pain, unspecif ied back pain laterality, unspecified chronicity M54.6 [place] [address] [address] Oct, HTN (hypertension) I10 ; Con stipation K59.00 ; Hyperlipidemia E78.5 ; Thoracic back pain, unspecified back pain laterality, unspecified chronicity M54.6 ; Chronic pain G89.29 ; Anxiety F41.9 ; Chronic kidney failure N18.9 ; Environmental allergies Z91.09 ; Vitamin D deficiency E55.9 and Primary insomnia F51.01 [facility] [address] [place] [id number] [place] [address] Sep, Anxiety F41.9 [place] [address] [place] [id number] [place] [address] Sep, [facility] [address] [id number] [address] [place] [address] August, Anxiety F41.9 [facility] [address] [id number] [address] [place] [address] August, [facility] [address] [id number] [address] [place] [address] Jul, Anxiety F41.9 [facility] [address] [id number] [address] [place] [address] Jul, [facility] [address] [id number] [address] [place] [address] Jun, Anxiety F41.9 [facility] [address] [id number] [address] [place] [address] Jun, [facility] [address] [id number] [address] [place] [address] May, [facility] [address] [id number] [address] [place] [address] May, [facility] [address] [id number] [address] [place] [address] May, [facility] [address] [id number] [address] [place] [address] Apr, [facility] [address] [id number] [address] [place] [address] Apr, [facility] [address] [id number] [address] [place] [address] Apr, Anxiety F41.9 [facility] [address] [id number] [address] [place] [address] Apr, Anxiety F41.9 [facility] [address] [id number] [address] [place] [address] Apr, [facility] [address] [place] [id number] [place] [address] Mar, HTN (hypertension) I10 ; Phillip mor R25.1 ; Hypercholesterolemia E78.0 ; Constipation K59.00 ; Chronic pain G89.29 ; Hyperlipidemia E78.5 ; Insomnia G47.00 ; Anxiety F41.9 and Thoracic back pain, unspecified back pain laterality, unspecified chronicity M54.6 [facility] [address] [facility] [id number] [place] [address] Mar, Tremor R25.1 ; HTN (hyperten stas) I10 ; Hypercholesterolemia E78.0 ; Constipation K59.00 ; Chronic pain G89.29 ; Hyperlipidemia E78.5 ; Insomnia G47.00 ; Anxiety F41.9 and Thoracic back pain, unspecified back pain laterality, unspecified chronicity M54.6 [facility] [address] [address] Mar, [facility] [address] [address] Mar, [facility] [address] [address] Feb, [facility] [address] [address] Jan, [facility] [address] [address] Jan, [facility] [address] [place] [id number] [place] [address] Dec, [facility] [address] [place] [id number] [place] [address] Nov, [facility] [address] [place] [id number] [place] [address] Nov, [facility] [address] [place] [id number] [place] [address] Oct, Anxiety F41.9 [facility] [address] [place] [id number] [place] [address] Oct, Chronic pain G89.29 [facility] [address] [facility] [id number] [address] [place] [address] Sep, [facility] [address] [facility] [id number] [address] [place] [address] Sep, [facility] [address] [facility] [id number] [address] [place] [address] Sep, [facility] [address] [facility] [id number] [address] [place] [address] Sep, [facility] [address] [facility] [id number] [address] [place] [address] Sep, Chronic pain syndrome G89.4 [facility] [address] [facility] [id number] [address] [place] [address] Sep, HTN (hypertension) I10 ; Chr onic pain G89.29 ; Hypercholesterolemia E78.0 ; Chronic kidney failure N18.9 ; Constipation, unspecified constipation type K59.00 ; Anxiety F41.9 and Thoracic back pain, unspecified back pain laterality, unspecified chronicity M54.6 [facility] [address] [facility] [id number] [address] [place] [address] August, Chronic pain syndrome G89.4 [facility] [address] [place] [id number] [place] [address] August, Chronic pain syndrome G89.4 [facility] [address] [place] [id number] [place] [address] Jul, Anxiety disorder, unspecifie d F41.9 and Chronic pain syndrome G89.4 [facility] [address] [facility] [id number] [address] [place] [address] Jul, Insomnia, unspecified G47.00 and Chronic pain syndrome G89.4 [facility] [address] [facility] [id number] [address] [place] [address] Jul, Allergic rhinitis J30.9 [facility] [address] [id number] [address] [place] [address] 15 Jul, 2015 Constipation, unspecified K5 9.00 [facility] [address] [id number] [address] [place] [address] Jul, [facility] [address] [facility] [id number] [address] [place] [address] Jun, [facility] [address] [id number] [address] [place] [address] Jun, [facility] [address] [facility] [id number] [address] [place] [address] Jun, [facility] [address] [facility] [id number] [address] [place] [address] Jun, [facility] [address] [facility] [id number] [address] [place] [address] Jun, [facility] [address] [facility] [id number] [address] [place] [address] Jun, [facility] [address] [facility] [id number] [address] [place] [address] May, [facility] [address] [facility] [id number] [address] [place] [address] May, [facility] [address] [facility] [id number] [address] [place] [address] May, Anxiety F41.9 ; Insomnia G47 .00 ; Hyperlipidemia E78.5 ; Chronic pain G89.29 ; HTN (hypertension) I10 ; Environmental allergies V15.09 and Constipation 564.00 [facility] [address] [facility] [id number] [address] [place] [address] Apr, [facility] [address] [facility] [id number] [address] [place] [id number] Apr, [facility] [address] [facility] [id number] [address] [place] [id number] Apr, [facility] [address] [place] [id number] [address] [place] [id number] Mar, [facility] [address] [id number] Mar, [facility] [address] [place] [id number] [address] [place] [id number] Mar, [facility] [address] [id number] Feb, [facility] [address] [address] Feb, [facility] [address] [id number] Feb, [facility] [address] [id number] Jan, HTN (hypertension) I10 ; Con stipation K59.00 ; Chronic pain G89.29 ; Hyperlipidemia E78.5 ; Hypercholesterolemia E78.0 ; Insomnia G47.00 and Anxiety F41.9 [facility] [address] [place] [id number] [address] [place] [id number] Jan, [facility] [address] [place] [id number] [address] [place] [id number] Dec, [facility] [address] [place] [id number] [address] [place] [id number] Nov, [facility] [address] [place] [id number] [address] [place] [id number] Oct, Chronic kidney disease, unsp ecified 585.9 ; Chronic pain syndrome 338.4 ; Hyperlipidemia 272.4 and Essential hypertension 401.9 [facility] [address] [place] [id number] [address] [place] [address] Oct, Chronic kidney disease 585.9 [facility] [address] [id number] [address] [place] [address] Oct, [facility] [address] [facility] [id number] [address] [place] [address] Oct, Chronic kidney disease, unsp ecified 585.9 ; Hypercalcemia 275.42 ; Hyperlipidemia 272.4 ; Essential hypertension 401.9 ; Chronic pain syndrome 338.4 ; Insomnia 780.52 ; Constipation 564.00 ; Environmental allergies V15.09 and Anxiety 300.00 [facility] [address] [facility] [id number] [address] [place] [address] Oct, Chronic kidney disease 585.9 [facility] [address] [facility] [id number] [address] [place] [address] Oct, [facility] [address] [facility] [id number] [address] [place] [address] Oct, Chronic kidney disease 585.9 and Hyperlipidemia 272.4 [facility] [address] [facility] [id number] [address] [place] [address] Oct, [facility] [address] [facility] [id number] [address] [place] [address] Oct, [facility] [address] [facility] [id number] [address] [place] [address] Sep, [facility] [address] [facility] [id number] [address] [place] [address] Sep, [facility] [address] [facility] [id number] [address] [place] [address] Sep, Chronic kidney disease 585.9 and Hyperlipidemia 272.4 [facility] [address] [facility] [id number] [address] [place] [address] Sep, [facility] [address] [facility] [id number] [address] [place] [address] August, [facility] [address] [facility] [id number] [address] [place] [address] August, [facility] [address] [facility] [id number] [address] [place] [address] 14 Jul, 2014 [facility] [address] [id number] [address] [place] [address], [place] [address] 13 Jul, 2014 [facility] [address] [id number] [address] [place] [address], [place] [address] Jun, [facility] [address] [id number] [address] [place] [address], [place] [address] Jun, [facility] [address] [id number] [address] [place] [address], [place] [address] 16 Jun, 2014 [facility] [address] [id number] [address] [place] [address], [place] [address] Jun, [facility] [address] [id number] [address] [place] [address], [place] [address] Jun, [facility] [address] [id number] [address] [place] [address], [place] [address] Jun, [facility] [address] [id number] [address] [place] [address], [place] [address] Jun, [facility] [address] [id number] [address] [place] [address], [place] [address] Jun, [facility] [address] [id number] [address] [place] [address], [place] [address] May, [facility] [address] [id number] [address] [place] [address], [place] [address] May, [facility] [address] [id number] [address] [place] [address], [place] [address] May, [facility] [address] [id number] [address] [place] [address], [place] [address] May, [facility] [address] [id number] [address] [place] [address], [place] [address] Apr, [facility] [address] [id number] [address] [place] [address], [place] [address] Apr, [facility] [address] [id number] [address] [place] [address], [place] [address] Apr, [facility] [address] [id number] [address] [place] [address], [place] [address] Apr, [facility] [address] [id number] [address] [place] [address], [place] [address] Apr, [facility] [address] [id number] [address] [place] [address], [place] [address] Apr, [facility] [address] [id number] [address] [place] [address], [place] [address] Apr, [facility] [address] [id number] [address] [place] [address], [place] [address] Apr, [facility] [address] [id number] [address] [place] [address], [place] [address] Apr, [facility] [address] [id number] [address] [place] [address], [place] [address] Apr, [facility] [address] [id number] [address] [place] [address], [place] [address] Apr, [facility] [address] [id number] [address] [place] [address], [place] [address] Mar, [facility] [address] [id number] [address] [place] [address], [place] [address] Mar, [facility] [address] [id number] [address] [place] [address], [place] [address] Feb, [facility] [address] [id number] [address] [place] [address], [place] [address] Feb, [facility] [address] [id number] [address] [place] [address], [place] [address] Feb, [facility] [address] [id number] [address] [place] [address], [place] [address] Feb, [facility] [address] [id number] [address] [place] [address], [place] [address] Feb, [facility] [address] [id number] [address] [place] [address], [place] [address] Feb, [facility] [address] [id number] [address] [place] [address], [place] [address] Feb, [facility] [address] [id number] [address] [place] [address], [place] [address] Feb, [facility] [address] [id number] [address] [place] [address], [place] [address] Feb, [facility] [address] [id number] [address] [place] [address], [place] [address] Feb, [facility] [address] [id number] [address] [place] [address], [place] [address] Jan, [facility] [address] [id number] [address] [place] [address], [place] [address] Jan, [facility] [address] [id number] [address] [place] [address] Jan, [facility] [address] [id number] [address] [place] [address], [place] [address] Jan, [facility] [address] [id number] [address] [place] [address] Jan, [facility] [address] [id number] [address] [place] [address] Jan, [facility] [address] [id number] [address] [place] [address] Jan, [facility] [address] [id number] [address] [place] [address], [place] [address] Jan, [facility] [address] [id number] [address] [place] [address], [place] [address] Jan, [facility] [address] [id number] [address] [place] [address] Jan, [facility] [address] [id number] [address] [place] [address] Jan, [facility] [address] [id number] [address] [place] [address], [place] [address] Dec, 2013 [facility] [address] [id number] [address] [place] [address], [place] [address] Dec, [facility] [address] [id number] [address] [place] [address], [place] [address] Dec, 2013 [facility] [address] [id number] [address] [place] [address], [place] [address] Dec, 2013 [facility] [address] [id number] [address] [place] [address], [place] [address] 18 Dec, 2013 [facility] [address] [id number] [address] [place] [address], [place] [address] Dec, [facility] [address] [id number] [address] [place] [address], [place] [address] Dec, [facility] [address] [id number] [address] [place] [address], [place] [address] Dec, [facility] [address] [id number] [address] [place] [address], [place] [address] Nov, [facility] [address] [id number] [address] [place] [address], [place] [address] Nov, [facility] [address] [id number] [address] [place] [address], [place] [address] Nov, [facility] [address] [id number] [address] [place] [address], [place] [address] Nov, [facility] [address] [id number] [address] [place] [address], [place] [address] Nov, [facility] [address] [id number] [address] [place] [address], [place] [address] Nov, [facility] [address] [id number] [address] [place] [address], [place] [address] Nov, [facility] [address] [id number] [facility] [place] [address] Nov, [facility] [address] [id number] [address] [place] [address], [place] [address] Oct, [facility] [address] [id number] [address] [place] [address], [place] [address] Oct, [facility] [address] [id number] [address] [place] [address], [place] [address] Oct, [facility] [address] [id number] [address] [place] [address], [place] [address] Oct, [facility] [address] [id number] [address] [place] [address], [place] [address] Sep, [facility] [address] [id number] [address] [place] [address], [place] [address] Sep, [facility] [address] [id number] [address] [place] [address], [place] [address] Sep, [facility] [address] [id number] [address] [place] [address], [place] [address] Sep, [facility] [address] [id number] [address] [place] [address], [place] [address] Sep, [facility] [address] [id number] [address] [place] [address], [place] [address] Sep, [facility] [address] [id number] [address] [place] [address], [place] [address] Sep, [facility] [address] [id number] [address] [place] [address], [place] [address] Sep, [facility] [address] [id number] [address] [place] [address], [place] [address] August, [facility] [address] [id number] [address] [place] [address], [place] [address] August, [facility] [address] [id number] [address] [place] [address], [place] [address] August, [facility] [address] [id number] [facility] [place] [address] August, [facility] [address] [id number] [address] [place] [address], [place] [address] August, [facility] [address] [id number] [address] [place] [address], [place] [address] August, [facility] [address] [id number] [address] [place] [address], [place] [address] August, [facility] [address] [id number] [address] [place] [address], [place] [address] August, [facility] [address] [id number] [address] [place] [address], [place] [address] August, [facility] [address] [id number] [address] [place] [address], [place] [address] August, [facility] [address] [id number] [address] [place] [address], [place] [address] Jul, [facility] [address] [id number] [address] [place] [address], [place] [address] Jul, [facility] [address] [id number] [address] [place] [address], [place] [address] Jul, [facility] [address] [id number] [address] [place] [address], [place] [address] Jul, [facility] [address] [id number] [address] [place] [address], [place] [address] Jul, [facility] [address] [id number] [address] [place] [address], [place] [address] Jul, [facility] [address] [id number] [address] [place] [address], [place] [address] Jul, [facility] [address] [id number] [address] [place] [address], [place] [address] Jul, [facility] [address] [id number] [facility] [place] [address] Jun, [facility] [address] [id number] [address] [place] [address], [place] [address] Jun, [facility] [address] [id number] [address] [place] [address], [place] [address] Jun, [facility] [address] [id number] [address] [place] [address], [place] [address] Jun, [facility] [address] [id number] [address] [place] [address], [place] [address] Jun, [facility] [address] [id number] [address] [place] [address], [place] [address] Jun, [facility] [address] [id number] [address] [place] [address], [place] [address] May, [facility] [address] [id number] [address] [place] [address], [place] [address] May, [facility] [address] [id number] [address] [place] [address], [place] [address] May, [facility] [address] [id number] [address] [place] [address], [place] [address] May, [facility] [address] [id number] [address] [place] [address], [place] [address] May, [facility] [address] [id number] [address] [place] [address], [place] [address] May, [facility] [address] [id number] [address] [place] [address], [place] [address] May, [facility] [address] [id number] [address] [place] [address], [place] [address] Apr, [facility] [address] [id number] [address] [place] [address], [place] [address] Apr, [facility] [address] [id number] [address] [place] [address], [place] [address] Apr, [facility] [address] [id number] [address] [place] [address], [place] [address] 14 Apr, 2013 [facility] [address] [id number] [address] [place] [address], [place] [address] 10 Apr, 2013 [facility] [address] [id number] [address] [place] [address], [place] [address] 10 Apr, 2013 [facility] [address] [id number] [address] [place] [address], [place] [address] 31 Mar, 2013 [facility] [address] [id number] [address] [place] [address], [place] [address] 31 Mar, 2013 [facility] [address] [id number] [address] [place] [address], [place] [address] Mar, [facility] [address] [id number] [address] [place] [address], [place] [address] Mar, [facility] [address] [id number] [address] [place] [address], [place] [address] Mar, [facility] [address] [id number] [address] [place] [address], [place] [address] Mar, [facility] [address] [id number] [address] [place] [address], [place] [address] 16 Mar, 2013 [facility] [address] [id number] [address] [place] [address], [place] [address] 16 Mar, 2013 [facility] [address] [id number] [address] [place] [address], [place] [address] Mar, [facility] [address] [id number] [address] [place] [address], [place] [address] Mar, [facility] [address] [id number] [address] [place] [address], [place] [address] Feb, [facility] [address] [id number] [address] [place] [address], [place] [address] Feb, [facility] [address] [id number] [address] [place] [address], [place] [address] Feb, [facility] [address] [id number] [address] [place] [address], [place] [address] Feb, [facility] [address] [id number] [address] [place] [address], [place] [address] Feb, [facility] [address] [id number] [address] [place] [address], [place] [address] Feb, [facility] [address] [id number] [address] [place] [address], [place] [address] Feb, [facility] [address] [id number] [address] [place] [address], [place] [address] Feb, [facility] [address] [id number] [address] [place] [address], [place] [address] Feb, [facility] [address] [id number] [address] [place] [address], [place] [address] Feb, [facility] [address] [id number] [address] [place] [address], [place] [address] Jan, [facility] [address] [id number] [address] [place] [address], [place] [address] Jan, [facility] [address] [id number] [address] [place] [address], [place] [address] Jan, [facility] [address] [id number] [address] [place] [address], [place] [address] Jan, [facility] [address] [id number] [address] [place] [address], [place] [address] Jan, [facility] [address] [id number] [address] [place] [address], [place] [address] Jan, [facility] [address] [id number] [address] [place] [address], [place] [address] 17 Jan, 2013 [facility] [address] [id number] [address] [place] [address], [place] [address] Jan, [facility] [address] [id number] [address] [place] [address], [place] [address] Jan, [facility] [address] [id number] [address] [place] [address], [place] [address] Dec, [facility] [address] [id number] [address] [place] [address], [place] [address] Dec, [facility] [address] [id number] [address] [place] [address], [place] [address] Dec, [facility] [address] [id number] [address] [place] [address], [place] [address] Dec, [facility] [address] [id number] [address] [place] [address], [place] [address] Nov, [facility] [address] [id number] [address] [place] [address], [place] [address] Nov, [facility] [address] [id number] [address] [place] [address], [place] [address] Nov, [facility] [address] [id number] [address] [place] [address], [place] [address] Nov, [facility] [address] [id number] [address] [place] [address], [place] [address] Nov, [facility] [address] [id number] [address] [place] [address], [place] [address] Nov, [facility] [address] [id number] [address] [place] [address], [place] [address] Oct, [facility] [address] [id number] [address] [place] [address], [place] [address] Oct, [facility] [address] [id number] [address] [place] [address], [place] [address] Oct, [facility] [address] [id number] [address] [place] [address], [place] [address] Oct, [facility] [address] [id number] [address] [place] [address], [place] [address] 27 Sep, 2012 [facility] [address] [id number] [address] [place] [address], [place] [address] 19 Sep, 2012 [facility] [address] [id number] [address] [place] [address], [place] [address] 17 Sep, 2012 [facility] [address] [id number] [address] [place] [address], [place] [address] 14 Sep, 2012 [facility] [address] [id number] [address] [place] [address], [place] [address] 10 Sep, 2012 [facility] [address] [id number] [address] [place] [address], [place] [address] August, [facility] [address] [id number] [address] [place] [address], [place] [address] 2012 [facility] [address] [id number] [address] [place] [address], [place] [address] Jul, [facility] [address] [id number] [address] [place] [address], [place] [address] Jul, [facility] [address] [id number] [address] [place] [address], [place] [address] 15 Jul, 2012 [facility] [address] [id number] [address] [place] [address], [place] [address] 09 Jul, 2012 [facility] [address] [id number] [address] [place] [address], [place] [address] 08 Jul, 2012 [facility] [address] [id number] [address] [place] [address], [place] [address] 26 Jun, 2012 [facility] [address] [id number] [address] [place] [address], [place] [address] 20 Jun, 2012 [facility] [address] [id number] [address] [place] [address], [place] [address] 15 Jun, 2012 [facility] [address] [id number] [address] [place] [address], [place] [address] 06 Jun, 2012 [facility] [address] [id number] [address] [place] [address], [place] [address] Jun, [facility] [address] [id number] [address] [place] [address], [place] [address] May, [facility] [address] [id number] [address] [place] [address], [place] [address] May, [facility] [address] [id number] [address] [place] [address], [place] [address] May, [facility] [address] [id number] [address] [place] [address], [place] [address] May, [facility] [address] [id number] [address] [place] [address], [place] [address] May, [facility] [address] [id number] [address] [place] [address], [place] [address] May, [facility] [address] [id number] [address] [place] [address], [place] [address] May, [facility] [address] [id number] [address] [place] [address], [place] [address] May, [facility] [address] [id number] [address] [place] [address], [place] [address] May, [facility] [address] [id number] [address] [place] [address], [place] [address] Apr, [facility] [address] [id number] [address] [place] [address], [place] [address] Apr, [facility] [address] [id number] [address] [place] [address], [place] [address] Apr, [facility] [address] [id number] [address] [place] [address], [place] [address] Apr, [facility] [address] [id number] [address] [place] [address], [place] [address] Apr, [facility] [address] [id number] [address] [place] [address], [place] [address] Mar, [facility] [address] [id number] [address] [place] [address], [place] [address] Mar, [facility] [address] [id number] [address] [place] [address], [place] [address] Mar, [facility] [address] [id number] [address] [place] [address], [place] [address] Mar, [facility] [address] [id number] [address] [place] [address], [place] [address] Mar, [facility] [address] [id number] [address] [place] [address], [place] [address] Mar, [facility] [address] [id number] [address] [place] [address], [place] [address] Mar, [facility] [address] [id number] [address] [place] [address], [place] [address] Mar, [facility] [address] [id number] [address] [place] [address], [place] [address] Mar, [facility] [address] [id number] [address] [place] [address], [place] [address] Mar, [facility] [address] [id number] [address] [place] [address], [place] [address] 30 Feb, 2012 [facility] [address] [id number] [address] [place] [address] [place] [address] [address] Feb, [facility] [address] [id number] [address] [place] [address], [place] [address] Feb, [facility] [address] [id number] [address] [place] [address], [place] [address] Feb, [facility] [address] [id number] [address] [place] [address], [place] [address] Feb, [facility] [address] [id number] [address] [place] [address], [place] [address] Feb, [facility] [address] [id number] [address] [place] [address], [place] [address] 20 Feb, 2012 [facility] [address] [id number] [address] [place] [address], [place] [address] 20 Feb, 2012 [facility] [address] [id number] [address] [place] [address], [place] [address] 16 Feb, 2012 [facility] [address] [id number] [address] [place] [address], [place] [address] 16 Feb, 2012 [facility] [address] [id number] [address] [place] [address], [place] [address] 13 Feb, 2012 [facility] [address] [id number] [address] [place] [address], [place] [address] 13 Feb, 2012 [facility] [address] [id number] [address] [place] [address], [place] [address] 12 Feb, 2012 [facility] [address] [id number] [address] [place] [address], [place] [address] Feb, [facility] [address] [id number] [address] [place] [address], [place] [address] 09 Feb, 2012 [facility] [address] [id number] [address] [place] [address], [place] [address] 08 Feb, 2012 [facility] [address] [id number] [address] [place] [address], [place] [address] Feb, [facility] [address] [id number] [address] [place] [address], [place] [address] Feb, [facility] [address] [id number] [address] [place] [address], [place] [address] Jan, [facility] [address] [id number] [address] [place] [address], [place] [address] Jan, [facility] [address] [id number] [address] [place] [address], [place] [address] Jan, [facility] [address] [id number] [address] [place] [address], [place] [address] Jan, [facility] [address] [id number] [address] [place] [address], [place] [address] Jan, [facility] [address] [id number] [address] [place] [address], [place] [address] Jan, [facility] [address] [id number] [address] [place] [address], [place] [address] Jan, [facility] [address] [id number] [address] [place] [address], [place] [address] Jan, [facility] [address] [id number] [address] [place] [address], [place] [address] Jan, [facility] [address] [id number] [address] [place] [address], [place] [address] Jan, [facility] [address] [id number] [address] [place] [address], [place] [address] 24 Dec, 2011 [facility] [address] [id number] [address] [place] [address], [place] [address] 18 Dec, 2011 [facility] [address] [id number] [address] [place] [address], [place] [address] Dec, [facility] [address] [id number] [address] [place] [address] Dec, [facility] [address] [id number] [address] [place] [address] Nov, [facility] [address] [id number] [address] [place] [address] Nov, [facility] [address] [id number] [address] [place] [address], [place] [address] Nov, [facility] [address] [id number] [address] [place] [address], [place] [address] Nov, [facility] [address] [id number] [address] [place] [address] Nov, [facility] [address] [id number] [address] [place] [address] Nov, [facility] [address] [id number] [address] [place] [address], [place] [address] Oct, [facility] [address] [id number] [address] [place] [address], [place] [address] Oct, [facility] [address] [id number] [address] [place] [address], [place] [address] Oct, [facility] [address] [id number] [address] [place] [address], [place] [address] Oct, [facility] [address] [id number] [address] [place] [address], [place] [address] Oct, [facility] [address] [id number] [address] [place] [address], [place] [address] Sep, [facility] [address] [id number] [address] [place] [address], [place] [address] Sep, [facility] [address] [id number] [address] [place] [address], [place] [address] Sep, [facility] [address] [id number] [address] [place] [address], [place] [address] Sep, [facility] [address] [id number] [address] [place] [address], [place] [address] Sep, [facility] [address] [id number] [address] [place] [address], [place] [address] August, [facility] [address] [id number] [address] [place] [address], [place] [address] August, [facility] [address] [id number] [address] [place] [address], [place] [address] August, [facility] [address] [id number] [address] [place] [address], [place] [address] August, [facility] [address] [id number] [address] [place] [address], [place] [address] Jul, [facility] [address] [id number] [facility] [place] [address] 24 Jul, 2011 [facility] [address] [id number] [address] [place] [address], [place] [address] 19 Jul, 2011 [facility] [address] [id number] [address] [place] [address], [place] [address] 18 Jul, 2011 [facility] [address] [id number] [address] [place] [address], [place] [address] Jul, [facility] [address] [id number] [address] [place] [address], [place] [address] 12 Jul, 2011 [facility] [address] [id number] [address] [place] [address], [place] [address] 11 Jul, 2011 [facility] [address] [id number] [address] [place] [address], [place] [address] 10 Jul, 2011 [facility] [address] [id number] [address] [place] [address], [place] [address] Jul, [facility] [address] [id number] [address] [place] [address], [place] [address] 07 Jul, 2011 [facility] [address] [id number] [address] [place] [address], [place] [address] 05 Jul, 2011 [facility] [address] [id number] [address] [place] [address], [place] [address] Jul, [facility] [address] [id number] [address] [place] [address], [place] [address] Jul, [facility] [address] [id number] [address] [place] [address], [place] [address] Jul, [facility] [address] [id number] [address] [place] [address], [place] [address] 28 Jun, 2011 [facility] [address] [id number] [address] [place] [address], [place] [address] Jun, [facility] [address] [id number] [address] [place] [address], [place] [address] 20 Jun, 2011 [facility] [address] [id number] [address] [place] [address], [place] [address] 16 Jun, 2011 [facility] [address] [id number] [address] [place] [address], [place] [address] 27 May, 2011 [facility] [address] [id number] [address] [place] [address], [place] [address] 16 May, 2011 [facility] [address] [id number] [address] [place] [address], [place] [address] May, [facility] [address] [id number] [address] [place] [address], [place] [address] Apr, [facility] [address] [id number] [address] [place] [address], [place] [address] 18 Apr, 2011 [facility] [address] [id number] [address] [place] [address], [place] [address] Apr, [facility] [address] [id number] [address] [place] [address], [place] [address] Apr, [facility] [address] [id number] [address] [place] [address], [place] [address] Apr, [facility] [address] [id number] [address] [place] [address], [place] [address] Mar, [facility] [address] [id number] [address] [place] [address], [place] [address] Mar, [facility] [address] [id number] [address] [place] [address], [place] [address] Mar, [facility] [address] [id number] [address] [place] [address], [place] [address] Mar, [facility] [address] [id number] [address] [place] [address], [place] [address] Mar, [facility] [address] [id number] [address] [place] [address], [place] [address] Mar, [facility] [address] [id number] [address] [place] [address], [place] [address] 05 Mar, 2011 [facility] [address] [id number] [address] [place] [address], [place] [address] 29 Feb, 2011 [facility] [address] [id number] [address] [place] [address], [place] [address] 25 Feb, 2011 [facility] [address] [id number] [address] [place] [address], [place] [address] Feb, [facility] [address] [id number] [address] [place] [address], [place] [address] 22 Feb, 2011 [facility] [address] [id number] [address] [place] [address], [place] [address] 16 Feb, 2011 [facility] [address] [id number] [address] [place] [address], [place] [address] 14 Feb, 2011 [facility] [address] [id number] [address] [place] [address], [place] [address] 10 Feb, 2011 [facility] [address] [id number] [address] [place] [address], [place] [address] 31 Jan, 2011 [facility] [address] [id number] [address] [place] [address], [place] [address] 31 Jan, 2011 [facility] [address] [id number] [address] [place] [address], [place] [address] 31 Jan, 2011 [facility] [address] [id number] [address] [place] [address], [place] [address] 18 Jan, 2011 [facility] [address] [id number] [address] [place] [address], [place] [address] 17 Jan, 2011 [facility] [address] [id number] [address] [place] [address], [place] [address] 17 Jan, 2011 [facility] [address] [id number] [address] [place] [address], [place] [address] Jun, [facility] [address] [id number] [address] [place] [address], [place] [address] 30 Mar, 2010 [facility] [address] [id number] [address] [place] [address], [place] [address] 20 Mar, 2010 [facility] [address] [id number] [address] [place] [address], [place] [address] 14 Mar, 2010 [facility] [address] [id number] [address] [place] [address], [place] [address] 14 Mar, 2010 [facility] [address] [id number] [address] [place] [address], [place] [address] 13 Mar, 2010 [facility] [address] [id number] [address] [place] [address], [place] [address] 07 Mar, 2010 [facility] [address] [id number] [address] [place] [address], [place] [address] 02 Mar, 2010 [facility] [address] [id number] [address] [place] [address], [place] [address] Mar, [facility] [address] [id number] [address] [place] [address], [place] [address] 30 Feb, 2010 [facility] [address] [id number] [address] [place] [address], [place] [address] 29 Feb, 2010 [facility] [address] [id number] [address] [place] [address], [place] [address] 17 Feb, 2010 [facility] [address] [id number] [address] [place] [address], [place] [address] 17 Feb, 2010 [facility] [address] [id number] [address] [place] [address] 16 Feb, 2010 [facility] [address] [id number] [address] [place] [address], [place] [address] 08 Feb, 2010 [facility] [address] [id number] [address] [place] [address], [place] [address] 04 Feb, 2010 [facility] [address] [id number] [address] [place] [address], [place] [address] Feb, [facility] [address] [id number] [address] [place] [address] Jan, [facility] [address] [id number] [address] [place] [address] Jan, [facility] [address] [id number] [address] [place] [address] Jan, [facility] [address] [id number] [address] [place] [address] Jan, [facility] [address] [id number] [address] [place] [address] 29 Mar, 2009 [facility] [address] [id number] [address] [place] [address] Mar, [facility] [address] [id number] [address] [place] [address] Mar, [facility] [address] [id number] [address] [place] [address] Mar, [facility] [address] [id number] [address] [place] [address] 14 Mar, 2009 [facility] [address] [id number] [address] [place] [address] Mar, [facility] [address] [id number] [address] [place] [address] Feb, [facility] [address] [id number] [address] [place] [address] Feb, [facility] [address] [id number] [address] [place] [address] Jan, [facility] [address] [id number] [address] [place] [address] Sep, [facility] [address] [id number] [address] [place] [address] 18 May, 2008 IMMUNIZATIONS No Known Immunizations [...] Surgical History Left ear surgery Hospitalization History [facility] in [place]- Spontane ous Pneumothorax Hospitalization History [facility]- Colon resection Hospitalization History [facility] - diarrhea/ couldnt urin ate nov 2017 Hospitalization History pain /hip to foot right side 10/16/19 19
--- OUTSIDE RECORDS SUMMARY | 2019-08-28 09:14 | XMS REPORT ---
Author Author Dixon DE LEON [facility] Address [address] [place] [address] Care Team Providers Care Publisher Assistant Name Role Phone STEPHAN DE LEON Unavailable PROBLEMS Type Condition ICD9-CM Code BBF39-KX Code Onset Dates Condition S tatus SNOMED Code Problem Insomnia G47.00 Active 684381941 Problem Anxiety F41.9 Active 33804262 Problem HTN (hypertension) I10 Active 3 6742322 Problem Hyperlipidemia E78.5 Active 37522 004 Problem Thoracic back pain, unspecif ied back pain laterality, unspecified chronicity M54.6 Active 109313896 Problem Vitamin D deficiency E55.9 Active 20847108 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 93511062 Problem Chronic pain G89.29 Active 6611508 1 Problem Schizophrenia, unspecified type F20.9 Active 66993906 Problem Constipation K59.00 Active 6355585 8 Problem Environmental allergies Z91.09 Active 081097156 Problem Primary insomnia F51.01 Active 397 2004 Problem Chronic kidney disease, stage III (moderate) N18.3 Active 372800638 Problem Vision loss H54.7 Active 07470815 1 ALLERGIES No Information ENCOUNTERS Encounter Location Date Diagnosis [facility] [address] [facility] [id number] [address] [place] [phone] Oct, Schizophrenia, unspecified t ype F20.9 and Acute kidney injury N17.9 [facility] [address] [facility] [id number] [address] [place] [phone] Oct, [facility] [address] [facility] [id number] [address] [place] [id number] Oct, [facility] [address] [facility] [id number] [address] [place] [phone] Oct, Thoracic back pain, unspecif ied back pain laterality, unspecified chronicity M54.6 [facility] [address] [id number] [address] [place] [id number] Oct, [facility] [address] [id number] [address] [place] [phone] Oct, [facility] [address] [id number] [address] [place] [phone] Sep, Anxiety F41.9 [facility] [address] [id number] [address] [place] [id number] Sep, [facility] [address] [id number] [address] [place] [phone] Sep, Thoracic back pain, unspecif ied back pain laterality, unspecified chronicity M54.6 [facility] [address] [id number] [address] [place] [id number] Sep, [facility] [address] [id number] [address] [place] [id number] Sep, [facility] [address] [id number] [address] [place] [id number] Sep, [facility] [address] [id number] [address] [place] [id number] Sep, [facility] [address] [id number] [address] [place] [id number] Sep, [facility] [address] [id number] [address] [place] [phone] Sep, [facility] [address] [facility] [id number] [address] [place] [id number] 10 Sep, 2018 Chronic pain G89.29 ; Chroni c kidney disease, stage III (moderate) N18.3 ; Hyperlipidemia E78.5 and Insomnia G47.00 [facility] [address] [id number] [address] [place] [id number] Sep, Thoracic back pain, unspecif ied back pain laterality, unspecified chronicity M54.6 [facility] [address] [id number] [address] [place] [id number] August, Anxiety F41.9 [facility] [address] [id number] [address] [place] [phone] August, Thoracic back pain, unspecif ied back pain laterality, unspecified chronicity M54.6 and Anxiety F41.9 [facility] [address] [id number] [address] [place] [phone] August, 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 [facility] [address] [id number] [address] [place] [phone] August, 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 [facility] [address] [id number] [address] [place] [id number] August, [facility] [address] [id number] [address] [place] [phone] August, [facility] [address] [id number] [address] [place] [phone] August, Thoracic back pain, unspecif ied back pain laterality, unspecified chronicity M54.6 [facility] [address] [id number] [address] [place] [phone] August, [facility] [address] [id number] [address] [place] [phone] August, Anxiety F41.9 and Thoracic b ack pain, unspecified back pain laterality, unspecified chronicity M54.6 [facility] [address] [id number] [address] [place] [phone] Jul, [facility] [address] [id number] [address] [place] [id number] Jul, Thoracic back pain, unspecif ied back pain laterality, unspecified chronicity M54.6 [facility] [address] [id number] [address] [place] [phone] Jun, Anxiety F41.9 and Thoracic b ack pain, unspecified back pain laterality, unspecified chronicity M54.6 [facility] [address] [id number] [address] [place] [id number] 08 Jun, 2018 Anxiety F41.9 and Thoracic b ack pain, unspecified back pain laterality, unspecified chronicity M54.6 [facility] [address] [id number] [address] [place] [id number] Jun, Thoracic back pain, unspecif ied back pain laterality, unspecified chronicity M54.6 [facility] [address] [id number] [address] [place] [phone] Jun, Anxiety F41.9 and Thoracic b ack pain, unspecified back pain laterality, unspecified chronicity M54.6 [place] [id number] [id number] [address] [place] [phone] May, [facility] [address] [id number] [address] [place] [phone] May, [facility] [address] [id number] [address] [place] [id number] 08 May, 2018 [facility] [address] [id number] [address] [place] [phone] 06 May, 2018 Anxiety F41.9 and Encounter for medication monitoring Z51.81 [facility] [address] [id number] [address] [place] [phone] May, Anxiety F41.9 and Thoracic b ack pain, unspecified back pain laterality, unspecified chronicity M54.6 [facility] [address] [id number] [address] [place] [phone] Apr, Hyperlipidemia 272.4 [facility] [address] [id number] [address] [place] [id number] Apr, Chronic pain G89.29 ; Anxiet y F41.9 ; Cervical radiculopathy M54.12 and Vision loss H54.7 [facility] [address] [id number] [address] [place] [phone] Apr, [facility] [address] [id number] [address] [place] [id number] Apr, Anxiety F41.9 and Thoracic b ack pain, unspecified back pain laterality, unspecified chronicity M54.6 [facility] [address] [id number] [address] [place] [phone] Mar, [facility] [address] [id number] [address] [place] [id number] Mar, Anxiety F41.9 and Thoracic b ack pain, unspecified back pain laterality, unspecified chronicity M54.6 [facility] [address] [id number] [address] [place] [phone] Feb, Anxiety F41.9 and Thoracic b ack pain, unspecified back pain laterality, unspecified chronicity M54.6 [facility] [address] [id number] [address] [place] [id number] 07 Feb, 2018 Thoracic back pain, unspecif ied back pain laterality, unspecified chronicity M54.6 [facility] [address] [id number] [address] [place] [phone] Jan, [facility] [address] [id number] [address] [place] [id number] Jan, Anxiety F41.9 and Thoracic b ack pain, unspecified back pain laterality, unspecified chronicity M54.6 [facility] [address] [id number] [address] [place] [phone] Dec, Diarrhea of presumed infecti ous origin R19.7 [facility] [address] [id number] [address] [place] [id number] 19 Dec, 2017 Diarrhea of presumed infecti ous origin R19.7 [facility] [address] [id number] [address] [place] [id number] 18 Dec, 2017 Thoracic back pain, unspecif ied back pain laterality, unspecified chronicity M54.6 [place] [id number] [facility] [id number] [address] [place] [id number] 17 Dec, 2017 [place] [address] [facility] [id number] [address] [place] [id number] Dec, Anxiety F41.9 and Thoracic b ack pain, unspecified back pain laterality, unspecified chronicity M54.6 [place] [address] [facility] [id number] [address] [place] [id number] Dec, Diarrhea of presumed infecti ous origin R19.7 [place] [address] [facility] [id number] [address] [place] [phone] Dec, [place] [address] [facility] [id number] [address] [place] [id number] Dec, Anxiety F41.9 and Thoracic b ack pain, unspecified back pain laterality, unspecified chronicity M54.6 [place] [address] [facility] [id number] [address] [place] [id number] Dec, Anxiety F41.9 and Thoracic b ack pain, unspecified back pain laterality, unspecified chronicity M54.6 [facility] [employer] [address] [place] [id number] Dec, Diarrhea of presumed infectious origin R 19.7 ; Anxiety F41.9 ; Thoracic back pain, unspecified back pain laterality, unspecified chronicity M54.6 and HTN (hypertension) I10 [place] [address] [facility] [id number] [address] [place] [id number] Dec, Anxiety F41.9 [facility] [employer] [address] [place] [id number] Dec, Anxiety F41.9 ; Diarrhea of presumed inf ectious origin R19.7 ; Generalized abdominal pain R10.84 and Localized edema R60.0 [place] [address] [facility] [id number] [address] [place] [phone] Nov, [facility] [employer] [address] [place] [id number] Nov, Anxiety F41.9 ; Urinary retention R33.9 ; Diarrhea of presumed infectious origin R19.7 ; Weakness R53.1 ; Acute kidney failure, unspecified N17.9 ; Chronic kidney disease, stage III (moderate) N18.3 and Thoracic back pain, unspecified back pain laterality, unspecified chronicity M54.6 [place] [address] [id number] Oct, Thoracic back pain, unspecif ied back pain laterality, unspecified chronicity M54.6 and Anxiety F41.9 [place] [address] [address] Sep, Thoracic back pain, unspecif ied back pain laterality, unspecified chronicity M54.6 and Anxiety F41.9 [place] [address] [address] Sep, Thoracic back pain, unspecif ied back pain laterality, unspecified chronicity M54.6 ; Anxiety F41.9 and Encounter for medication monitoring Z51.81 [place] [address] [address] August, [place] [address] [address] August, Thoracic back pain, unspecif ied back pain laterality, unspecified chronicity M54.6 and Anxiety F41.9 [place] [address] [address] August, Hyperlipidemia E78.5 and HTN (hypertension) I10 [place] [address] [address] August, [place] [address] [place] [id number] [place] [address] August, Medicare welcome exam Z00.00 ; Chronic kidney failure N18.9 ; Anxiety F41.9 ; Chronic pain G89.29 ; Insomnia G47.00 ; Hyperlipidemia E78.5 ; HTN (hypertension) I10 and Thoracic back pain, unspecified back pain laterality, unspecified chronicity M54.6 [facility] [address] [address] Jul, [facility] [address] [place] [id number] [address] [place] [id number] Jul, [facility] [address] [address] Jul, [place] [address] [address] Jul, Anxiety F41.9 [place] [address] [address] Jul, Thoracic back pain, unspecif ied back pain laterality, unspecified chronicity M54.6 and Anxiety F41.9 [place] [address] [place] [id number] [address] [place] [id number] Jun, Thoracic back pain, unspecif ied back pain laterality, unspecified chronicity M54.6 and Anxiety F41.9 [place] [address] [place] [id number] [address] [place] [phone] May, Thoracic back pain, unspecif ied back pain laterality, unspecified chronicity M54.6 and Anxiety F41.9 [place] [address] [place] [id number] [address] [place] [phone] Apr, Thoracic back pain, unspecif ied back pain laterality, unspecified chronicity M54.6 and Anxiety F41.9 [place] [address] [place] [id number] [address] [place] [address] Mar, [place] [address] [address] Mar, Thoracic back pain, unspecif ied back pain laterality, unspecified chronicity M54.6 and Anxiety F41.9 [place] [address] [place] [id number] [address] [place] [id number] Mar, Thoracic back pain, unspecif ied back pain laterality, unspecified chronicity M54.6 ; HTN (hypertension) I10 ; Hyperlipidemia E78.5 and Anxiety F41.9 [place] [address] [facility] [id number] [address] [place] [id number] Feb, Thoracic back pain, unspecif ied back pain laterality, unspecified chronicity M54.6 and Anxiety F41.9 [place] [address] [place] [id number] [address] [place] [id number] Nov, [place] [address] [place] [id number] [place] [phone] Oct, [place] [address] [place] [id number] [address] [place] [id number] Oct, Thoracic back pain, unspecif ied back pain laterality, unspecified chronicity M54.6 [place] [address] [place] [id number] [address] [place] [address] Oct, HTN (hypertension) I10 ; Con stipation K59.00 ; Hyperlipidemia E78.5 ; Thoracic back pain, unspecified back pain laterality, unspecified chronicity M54.6 ; Chronic pain G89.29 ; Anxiety F41.9 ; Chronic kidney failure N18.9 ; Environmental allergies Z91.09 ; Vitamin D deficiency E55.9 and Primary insomnia F51.01 [place] [address] [facility] [id number] [address] [place] [address] Sep, Anxiety F41.9 [place] [address] [facility] [id number] [address] [place] [phone] Sep, [place] [address] [place] [id number] [address] [place] [phone] August, Anxiety F41.9 [place] [address] [place] [id number] [address] [place] [address] August, [place] [address] [place] [id number] [place] [address] Jul, Anxiety F41.9 [facility] [address] [facility] [id number] [address] [place] [id number] Jul, [facility] [address] [facility] [id number] [address] [place] [id number] Jun, Anxiety F41.9 [facility] [address] [facility] [id number] [address] [place] [id number] Jun, [facility] [address] [facility] [id number] [address] [place] [id number] May, [facility] [address] [place] [id number] [address] [place] [phone] May, [facility] [address] [place] [id number] [address] [place] [id number] May, [facility] [address] [place] [id number] [address] [place] [phone] Apr, [facility] [address] [facility] [id number] [address] [place] [phone] Apr, [facility] [address] [place] [id number] [address] [place] [id number] Apr, Anxiety F41.9 [facility] [address] [place] [id number] [address] [place] [address] Apr, Anxiety F41.9 [facility] [address] [place] [id number] [address] [place] [id number] Apr, [facility] [address] [facility] [id number] [address] [place] [address] Mar, HTN (hypertension) I10 ; Phillip mor R25.1 ; Hypercholesterolemia E78.0 ; Constipation K59.00 ; Chronic pain G89.29 ; Hyperlipidemia E78.5 ; Insomnia G47.00 ; Anxiety F41.9 and Thoracic back pain, unspecified back pain laterality, unspecified chronicity M54.6 [facility] [address] [id number] [address] [place] [address] Mar, Tremor R25.1 ; HTN (hyperten stas) I10 ; Hypercholesterolemia E78.0 ; Constipation K59.00 ; Chronic pain G89.29 ; Hyperlipidemia E78.5 ; Insomnia G47.00 ; Anxiety F41.9 and Thoracic back pain, unspecified back pain laterality, unspecified chronicity M54.6 [facility] [address] [id number] [address] [place] [address] Mar, [facility] [address] [id number] [address] [place] [phone] Mar, [facility] [address] [facility] [id number] [address] [place] [phone] Feb, [facility] [address] [facility] [id number] [address] [place] [phone] Jan, [facility] [address] [facility] [id number] [address] [place] [phone] Jan, [facility] [address] [facility] [id number] [address] [place] [id number] Dec, [facility] [address] [facility] [id number] [address] [place] [phone] Nov, [facility] [address] [facility] [id number] [address] [place] [phone] Nov, [facility] [address] [facility] [id number] [address] [place] [id number] Oct, Anxiety F41.9 [facility] [address] [id number] [address] [place] [phone] Oct, Chronic pain G89.29 [facility] [address] [facility] [id number] [address] [place] [id number] Sep, [facility] [address] [facility] [id number] [address] [place] [id number] Sep, [facility] [address] [facility] [id number] [address] [place] [phone] 17 Sep, 2015 [facility] [address] [facility] [id number] [address] [place] [phone] Sep, [facility] [address] [facility] [id number] [address] [place] [phone] Sep, Chronic pain syndrome G89.4 [facility] [address] [facility] [id number] [address] [place] [address] Sep, HTN (hypertension) I10 ; Chr onic pain G89.29 ; Hypercholesterolemia E78.0 ; Chronic kidney failure N18.9 ; Constipation, unspecified constipation type K59.00 ; Anxiety F41.9 and Thoracic back pain, unspecified back pain laterality, unspecified chronicity M54.6 [place] [address] [place] [id number] [address] [place] [address] August, Chronic pain syndrome G89.4 [place] [address] [place] [id number] [address] [place] [id number] August, Chronic pain syndrome G89.4 [place] [address] [place] [id number] [address] [place] [id number] Jul, Anxiety disorder, unspecifie d F41.9 and Chronic pain syndrome G89.4 [place] [id number] [place] [id number] [address] [place] [phone] Jul, Insomnia, unspecified G47.00 and Chronic pain syndrome G89.4 [place] [id number] [facility] [id number] [address] [place] [phone] Jul, Allergic rhinitis J30.9 [facility] ([facility] [address] [facility] [id number] [address] [place] [phone] Jul, Constipation, unspecified K5 9.00 [facility] ([facility] [address] [facility] [id number] [address] [place] [phone] Jul, [facility] ([facility] [address] [place] [id number] [address] [place] [phone] Jun, [facility] ([facility] [address] [id number] [address] [place] [phone] Jun, [facility] ([facility] [address] [id number] [address] [place] [phone] Jun, [facility] ([facility] [address] [facility] [id number] [address] [place] [phone] Jun, [facility] ([facility] [address] [facility] [id number] [address] [place] [phone] Jun, [facility] ([facility] [address] [facility] [id number] [address] [place] [phone] Jun, [facility] ([facility] [address] [facility] [id number] [address] [place] [phone] May, [facility] ([facility] [address] [facility] [id number] [address] [place] [phone] May, [facility] ([facility] [address] [facility] [id number] [address] [place] [phone] May, Anxiety F41.9 ; Insomnia G47 .00 ; Hyperlipidemia E78.5 ; Chronic pain G89.29 ; HTN (hypertension) I10 ; Environmental allergies V15.09 and Constipation 564.00 [facility] ([facility] [address] [facility] [id number] [address] [place] [phone] Apr, [facility] ([facility] [address] [facility] [id number] [address] [place] [phone] Apr, [facility] ([facility] [address] [facility] [id number] [address] [place] [phone] Apr, [facility] ([facility] [address] [facility] [id number] [address] [place] [phone] Mar, [facility] ([facility] [address] [facility] [id number] [address] [place] [id number] Mar, [facility] [address] [facility] [id number] [address] [place] [id number] Mar, [facility] [address] [id number] Feb, [facility] [address] [address] Feb, [facility] [address] [id number] Feb, [facility] [address] [place] [id number] Jan, HTN (hypertension) I10 ; Con stipation K59.00 ; Chronic pain G89.29 ; Hyperlipidemia E78.5 ; Hypercholesterolemia E78.0 ; Insomnia G47.00 and Anxiety F41.[address] [address] Jan, [address] [address] Dec, [facility] [address] [address] Nov, [address] [address] Oct, Chronic kidney disease, unsp ecified 585.9 ; Chronic pain syndrome 338.4 ; Hyperlipidemia 272.4 and Essential hypertension 401.[address] [address] Oct, Chronic kidney disease 585.9 [facility] [address] [address] Oct, [facility] [address] [place] [address] Oct, Chronic kidney disease, unsp ecified 585.9 ; Hypercalcemia 275.42 ; Hyperlipidemia 272.4 ; Essential hypertension 401.9 ; Chronic pain syndrome 338.4 ; Insomnia 780.52 ; Constipation 564.00 ; Environmental allergies V15.09 and Anxiety 300.00 [facility] [address] [id number] [address] [place] [id number] 15 Oct, 2014 Chronic kidney disease 585.9 [facility] [address] [id number] [address] [place] [id number] 15 Oct, 2014 [facility] [address] [id number] [address] [place] [id number] 14 Oct, 2014 Chronic kidney disease 585.9 and Hyperlipidemia 272.4 [facility] [address] [id number] [address] [place] [id number] 10 Oct, 2014 [facility] [address] [id number] [address] [place] [id number] Oct, [facility] [address] [id number] [address] [place] [id number] 18 Sep, 2014 [facility] [address] [id number] [address] [place] [id number] Sep, [facility] [address] [id number] [address] [place] [id number] Sep, Chronic kidney disease 585.9 and Hyperlipidemia 272.4 [facility] [address] [id number] [address] [place] [phone] Sep, [facility] [address] [id number] [address] [place] [id number] August, [facility] [address] [id number] [address] [place] [phone] August, [facility] [address] [id number] [address] [place] [id number] Jul, [facility] [address] [id number] [address] [place] [id number] Jul, [facility] [address] [id number] [address] [place] [id number] Jun, [facility] [address] [id number] [address] [place] [id number] Jun, [facility] [address] [id number] [address] [place] [address], [place] [address] Jun, [facility] [address] [id number] [address] [place] [address], [place] [id number] Jun, [facility] [address] [id number] [address] [place] [address], [place] [address] Jun, [facility] [address] [id number] [address] [place] [address], [place] [id number] Jun, [facility] [address] [id number] [address] [place] [address], [place] [address] Jun, [facility] [address] [id number] [address] [place] [address], [place] [address] Jun, [facility] [address] [id number] [address] [place] [address], [place] [address] May, [facility] [address] [id number] [address] [place] [address], [place] [address] May, [facility] [address] [id number] [address] [place] [address], [place] [id number] May, [facility] [address] [id number] [address] [place] [address], [place] [address] May, [facility] [address] [id number] [address] [place] [address], [place] [address] Apr, [facility] [address] [id number] [address] [place] [id number] Apr, [facility] [address] [id number] [address] [place] [address], [place] [address] Apr, [facility] [address] [id number] [address] [place] [address], [place] [address] Apr, [facility] [address] [id number] [address] [place] [id number] Apr, [facility] [address] [id number] [address] [place] [address], [place] [address] Apr, [facility] [address] [id number] [address] [place] [address], [place] [address] Apr, [facility] [address] [id number] [address] [place] [address], [place] [address] Apr, [facility] [address] [id number] [address] [place] [address], [place] [address] Apr, [facility] [address] [id number] [address] [place] [address], [place] [address] Apr, [facility] [address] [id number] [address] [place] [address], [place] [id number] Apr, [facility] [address] [id number] [address] [place] [address], [place] [id number] Mar, [facility] [address] [id number] [address] [place] [address], [place] [id number] Mar, [facility] [address] [id number] [address] [place] [address], [place] [id number] Feb, [facility] [address] [id number] [address] [place] [address], [place] [id number] Feb, [facility] [address] [id number] [address] [place] [address], [place] [id number] Feb, [facility] [address] [id number] [address] [place] [address], [place] [address] Feb, [facility] [address] [id number] [address] [place] [address], [place] [address] Feb, [facility] [address] [id number] [address] [place] [address], [place] [address] Feb, [facility] [address] [id number] [address] [place] [address], [place] [address] Feb, [facility] [address] [id number] [address] [place] [address], [place] [address] Feb, [facility] [address] [id number] [address] [place] [address], [place] [id number] Feb, [facility] [address] [id number] [address] [place] [address], [place] [address] Feb, [facility] [address] [id number] [address] [place] [address], [place] [id number] Jan, [facility] [address] [id number] [address] [place] [address], [place] [address] Jan, [facility] [address] [id number] [address] [place] [address], [place] [address] Jan, [facility] [address] [id number] [address] [place] [address], [place] [id number] Jan, [facility] [address] [id number] [address] [place] [address], [place] [id number] Jan, [facility] [address] [id number] [address] [place] [address], [place] [id number] Jan, [facility] [address] [id number] [address] [place] [address], [place] [address] Jan, [facility] [address] [id number] [address] [place] [id number] Jan, [facility] [address] [id number] [address] [place] [id number] 16 Jan, 2014 [facility] [address] [id number] [address] [place] [id number] Jan, [facility] [address] [id number] [address] [place] [address], [place] [address] Jan, [facility] [address] [id number] [address] [place] [address], [place] [id number] Dec, [facility] [address] [id number] [address] [place] [address], [place] [address] Dec, [facility] [address] [id number] [address] [place] [address], [place] [id number] 19 Dec, 2013 [facility] [address] [id number] [address] [place] [address], [place] [id number] 19 Dec, 2013 [facility] [address] [id number] [address] [place] [address], [place] [id number] 18 Dec, 2013 [facility] [address] [id number] [address] [place] [address], [place] [id number] 18 Dec, 2013 [facility] [address] [id number] [address] [place] [address], [place] [address] Dec, 2013 [facility] [address] [id number] [address] [place] [address], [place] [id number] Dec, [facility] [address] [id number] [address] [place] [address], [place] [address] Nov, [facility] [address] [id number] [address] [place] [address], [place] [id number] Nov, [facility] [address] [id number] [address] [place] [address], [place] [id number] Nov, [facility] [address] [id number] [address] [place] [address], [place] [id number] Nov, [facility] [address] [id number] [address] [place] [address], [place] [id number] Nov, [facility] [address] [id number] [address] [place] [address], [place] [id number] Nov, [facility] [address] [id number] [address] [place] [address], [place] [id number] Nov, [facility] [address] [id number] [address] [place] [address], [place] [address] Nov, [facility] [address] [id number] [address] [place] [address], [place] [id number] Oct, [facility] [address] [id number] [address] [place] [address], [place] [id number] Oct, [facility] [address] [id number] [address] [place] [address], [place] [id number] Oct, [facility] [address] [id number] [address] [place] [address], [place] [address] Oct, [facility] [address] [id number] [address] [place] [address], [place] [id number] Sep, [facility] [address] [id number] [address] [place] [address], [place] [id number] Sep, [facility] [address] [id number] [address] [place] [address], [place] [id number] Sep, [facility] [address] [id number] [address] [place] [address], [place] [id number] Sep, [facility] [address] [id number] [address] [place] [address], [place] [id number] Sep, [facility] [address] [id number] [address] [place] [address], [place] [id number] Sep, [facility] [address] [id number] [address] [place] [address], [place] [id number] Sep, [facility] [address] [id number] [address] [place] [address], [place] [id number] Sep, [facility] [address] [id number] [address] [place] [address], [place] [address] August, [facility] [address] [id number] [address] [place] [address], [place] [id number] August, [facility] [address] [id number] [address] [place] [address], [place] [address] August, [facility] [address] [id number] [address] [place] [address], [place] [id number] August, [facility] [address] [id number] [address] [place] [address], [place] [address] August, [facility] [address] [id number] [address] [place] [address], [place] [id number] August, [facility] [address] [id number] [address] [place] [address], [place] [address] August, [facility] [address] [id number] [address] [place] [address], [place] [id number] August, [facility] [address] [id number] [address] [place] [address], [place] [address] August, [facility] [address] [id number] [address] [place] [address], [place] [address] August, [facility] [address] [id number] [address] [place] [address], [place] [address] Jul, [facility] [address] [id number] [address] [place] [address], [place] [address] Jul, [facility] [address] [id number] [address] [place] [address], [place] [address] Jul, [facility] [address] [id number] [address] [place] [address], [place] [id number] Jul, [facility] [address] [id number] [address] [place] [address], [place] [id number] Jul, [facility] [address] [id number] [address] [place] [address], [place] [id number] Jul, [facility] [address] [id number] [address] [place] [address], [place] [address] Jul, [facility] [address] [id number] [address] [place] [address], [place] [address] Jul, [facility] [address] [id number] [address] [place] [address], [place] [id number] Jun, [facility] [address] [id number] [address] [place] [address], [place] [id number] Jun, [facility] [address] [id number] [address] [place] [address], [place] [id number] Jun, [facility] [address] [id number] [address] [place] [address], [place] [id number] Jun, [facility] [address] [id number] [address] [place] [address], [place] [id number] Jun, [facility] [address] [id number] [address] [place] [address], [place] [id number] Jun, [facility] [address] [id number] [address] [place] [address], [place] [id number] May, [facility] [address] [id number] [address] [place] [address], [place] [id number] May, [facility] [address] [id number] [address] [place] [address], [place] [id number] May, [facility] [address] [id number] [address] [place] [address], [place] [id number] May, [facility] [address] [id number] [address] [place] [address], [place] [id number] May, [facility] [address] [id number] [address] [place] [address], [place] [id number] May, [facility] [address] [id number] [address] [place] [address], [place] [id number] May, [facility] [address] [id number] [address] [place] [address], [place] [id number] Apr, [facility] [address] [id number] [address] [place] [address], [place] [address] Apr, [facility] [address] [id number] [address] [place] [address], [place] [id number] Apr, [facility] [address] [id number] [address] [place] [address], [place] [id number] Apr, [facility] [address] [id number] [address] [place] [address], [place] [id number] Apr, [facility] [address] [id number] [address] [place] [address], [place] [address] Apr, [facility] [address] [id number] [address] [place] [address], [place] [id number] Mar, [facility] [address] [id number] [address] [place] [address], [place] [id number] Mar, [facility] [address] [id number] [address] [place] [address], [place] [id number] Mar, [facility] [address] [id number] [address] [place] [address], [place] [id number] Mar, [facility] [address] [id number] [address] [place] [address], [place] [id number] Mar, [facility] [address] [id number] [address] [place] [address], [place] [id number] Mar, [facility] [address] [id number] [address] [place] [address], [place] [id number] 16 Mar, 2013 [facility] [address] [id number] [address] [place] [address], [place] [id number] 16 Mar, 2013 [facility] [address] [id number] [address] [place] [address], [place] [id number] Mar, [facility] [address] [id number] [address] [place] [address], [place] [id number] Mar, [facility] [address] [id number] [address] [place] [address], [place] [id number] Feb, [facility] [address] [id number] [address] [place] [address], [place] [id number] Feb, [facility] [address] [id number] [address] [place] [address], [place] [id number] Feb, [facility] [address] [id number] [address] [place] [address], [place] [id number] Feb, [facility] [address] [id number] [address] [place] [address], [place] [id number] 14 Feb, 2013 [facility] [address] [id number] [address] [place] [address], [place] [id number] 14 Feb, 2013 [facility] [address] [id number] [address] [place] [address], [place] [id number] Feb, [facility] [address] [id number] [address] [place] [address], [place] [id number] Feb, [facility] [address] [id number] [address] [place] [address], [place] [id number] 08 Feb, 2013 [facility] [address] [id number] [address] [place] [address], [place] [id number] Feb, [facility] [address] [id number] [address] [place] [address], [place] [id number] Jan, [facility] [address] [id number] [address] [place] [address], [place] [id number] Jan, [facility] [address] [id number] [address] [place] [address], [place] [id number] Jan, [facility] [address] [id number] [address] [place] [address], [place] [id number] Jan, [facility] [address] [id number] [address] [place] [address], [place] [id number] Jan, [facility] [address] [id number] [address] [place] [address], [place] [id number] Jan, [facility] [address] [id number] [address] [place] [address], [place] [id number] 17 Jan, 2013 [facility] [address] [id number] [address] [place] [address], [place] [id number] Jan, [facility] [address] [id number] [address] [place] [address], [place] [id number] Jan, [facility] [address] [id number] [address] [place] [address], [place] [id number] 25 Dec, 2012 [facility] [address] [id number] [address] [place] [address], [place] [id number] Dec, [facility] [address] [id number] [address] [place] [address], [place] [id number] Dec, [facility] [address] [id number] [address] [place] [address], [place] [id number] Dec, [facility] [address] [id number] [address] [place] [address], [place] [id number] Nov, [facility] [address] [id number] [address] [place] [address], [place] [id number] Nov, [facility] [address] [id number] [address] [place] [address], [place] [id number] Nov, [facility] [address] [id number] [address] [place] [address], [place] [id number] Nov, [facility] [address] [id number] [address] [place] [address], [place] [id number] Nov, [facility] [address] [id number] [address] [place] [address], [place] [id number] Nov, [facility] [address] [id number] [address] [place] [address], [place] [id number] Oct, [facility] [address] [id number] [address] [place] [address], [place] [id number] Oct, [facility] [address] [id number] [address] [place] [address], [place] [id number] Oct, [facility] [address] [id number] [address] [place] [address], [place] [id number] Oct, [facility] [address] [id number] [address] [place] [address], [place] [id number] Sep, [facility] [address] [id number] [address] [place] [address], [place] [id number] Sep, [facility] [address] [id number] [address] [place] [address], [place] [id number] Sep, [facility] [address] [id number] [address] [place] [address], [place] [id number] 14 Sep, 2012 [facility] [address] [id number] [address] [place] [address], [place] [id number] 10 Sep, 2012 [facility] [address] [id number] [address] [place] [address], [place] [id number] 17 Aug, 2012 [facility] [address] [id number] [address] [place] [address], [place] [id number] August, [facility] [address] [id number] [address] [place] [address], [place] [id number] 19 Jul, 2012 [facility] [address] [id number] [address] [place] [address], [place] [id number] 19 Jul, 2012 [facility] [address] [id number] [address] [place] [address], [place] [id number] 15 Jul, 2012 [facility] [address] [id number] [address] [place] [address], [place] [id number] Jul, [facility] [address] [id number] [address] [place] [address], [place] [id number] 08 Jul, 2012 [facility] [address] [id number] [address] [place] [address], [place] [id number] Jun, [facility] [address] [id number] [address] [place] [address], [place] [id number] Jun, [facility] [address] [id number] [address] [place] [address], [place] [id number] 15 Jun, 2012 [facility] [address] [id number] [address] [place] [address], [place] [id number] Jun, [facility] [address] [id number] [address] [place] [address], [place] [id number] Jun, [facility] [address] [id number] [address] [place] [address], [place] [id number] 28 May, 2012 [facility] [address] [id number] [address] [place] [address], [place] [id number] May, [facility] [address] [id number] [address] [place] [address], [place] [id number] May, [facility] [address] [id number] [address] [place] [address], [place] [id number] May, [facility] [address] [id number] [address] [place] [address], [place] [id number] May, [facility] [address] [id number] [address] [place] [address], [place] [id number] May, [facility] [address] [id number] [address] [place] [address], [place] [id number] May, [facility] [address] [id number] [address] [place] [address], [place] [id number] May, [facility] [address] [id number] [address] [place] [address], [place] [id number] May, [facility] [address] [id number] [address] [place] [address], [place] [id number] Apr, [facility] [address] [id number] [address] [place] [address], [place] [id number] Apr, [facility] [address] [id number] [address] [place] [address], [place] [id number] Apr, [facility] [address] [id number] [address] [place] [address], [place] [id number] Apr, [facility] [address] [id number] [address] [place] [address], [place] [id number] Apr, [facility] [address] [id number] [address] [place] [address], [place] [id number] Mar, [facility] [address] [id number] [address] [place] [address], [place] [id number] Mar, [facility] [address] [id number] [address] [place] [address], [place] [id number] Mar, [facility] [address] [id number] [address] [place] [address] [place] [id number] 20 Mar, 2012 [facility] [address] [id number] [address] [place] [address], [place] [id number] 19 Mar, 2012 [facility] [address] [id number] [address] [place] [address], [place] [id number] 19 Mar, 2012 [facility] [address] [id number] [address] [place] [address], [place] [id number] 17 Mar, 2012 [facility] [address] [id number] [address] [place] [address], [place] [id number] 17 Mar, 2012 [facility] [address] [id number] [address] [place] [address], [place] [id number] 07 Mar, 2012 [facility] [address] [id number] [address] [place] [address], [place] [id number] 07 Mar, 2012 [facility] [address] [id number] [address] [place] [address], [place] [id number] 30 Feb, 2012 [facility] [address] [id number] [address] [place] [address], [place] [id number] 30 Feb, 2012 [facility] [address] [id number] [address] [place] [address], [place] [id number] 29 Feb, 2012 [facility] [address] [id number] [address] [place] [address], [place] [id number] 29 Feb, 2012 [facility] [address] [id number] [address] [place] [address], [place] [id number] Feb, [facility] [address] [id number] [address] [place] [address], [place] [id number] 23 Feb, 2012 [facility] [address] [id number] [address] [place] [address], [place] [id number] 20 Feb, 2012 [facility] [address] [id number] [address] [place] [address], [place] [id number] 20 Feb, 2012 [facility] [address] [id number] [address] [place] [address], [place] [id number] 16 Feb, 2012 [facility] [address] [id number] [address] [place] [address], [place] [id number] 16 Feb, 2012 [facility] [address] [id number] [address] [place] [address], [place] [id number] 13 Feb, 2012 [facility] [address] [id number] [address] [place] [address], [place] [id number] 13 Feb, 2012 [facility] [address] [id number] [address] [place] [address], [place] [id number] Feb, [facility] [address] [id number] [address] [place] [address], [place] [id number] Feb, [facility] [address] [id number] [address] [place] [address], [place] [id number] Feb, [facility] [address] [id number] [address] [place] [address], [place] [id number] Feb, [facility] [address] [id number] [address] [place] [address], [place] [id number] Feb, [facility] [address] [id number] [address] [place] [address], [place] [id number] Feb, [facility] [address] [id number] [address] [place] [address], [place] [id number] Jan, [facility] [address] [id number] [address] [place] [address], [place] [id number] Jan, [facility] [address] [id number] [address] [place] [address], [place] [id number] 31 Jan, 2012 [facility] [address] [id number] [address] [place] [address], [place] [id number] 31 Jan, 2012 [facility] [address] [id number] [address] [place] [address], [place] [id number] Jan, [facility] [address] [id number] [address] [place] [address], [place] [id number] 24 Jan, 2012 [facility] [address] [id number] [address] [place] [address], [place] [id number] Jan, [facility] [address] [id number] [address] [place] [address], [place] [id number] Jan, [facility] [address] [id number] [address] [place] [address], [place] [id number] Jan, [facility] [address] [id number] [address] [place] [address], [place] [id number] Jan, [facility] [address] [id number] [address] [place] [address], [place] [id number] 24 Dec, 2011 [facility] [address] [id number] [address] [place] [address], [place] [id number] Dec, [facility] [address] [id number] [address] [place] [address], [place] [id number] Dec, [facility] [address] [id number] [address] [place] [address], [place] [id number] Dec, [facility] [address] [id number] [address] [place] [address], [place] [id number] Nov, [facility] [address] [id number] [address] [place] [address], [place] [id number] Nov, [facility] [address] [id number] [address] [place] [address], [place] [id number] Nov, [facility] [address] [id number] [address] [place] [address], [place] [id number] Nov, [facility] [address] [id number] [address] [place] [address], [place] [id number] Nov, [facility] [address] [id number] [address] [place] [address], [place] [id number] Nov, [facility] [address] [id number] [address] [place] [address], [place] [id number] Oct, [facility] [address] [id number] [address] [place] [address], [place] [id number] Oct, [facility] [address] [id number] [address] [place] [address], [place] [id number] 06 Oct, 2011 [facility] [address] [id number] [address] [place] [address], [place] [id number] Oct, [facility] [address] [id number] [address] [place] [address], [place] [id number] Oct, [facility] [address] [id number] [address] [place] [address], [place] [id number] Sep, [facility] [address] [id number] [address] [place] [address], [place] [id number] Sep, [facility] [address] [id number] [address] [place] [address], [place] [id number] Sep, [facility] [address] [id number] [address] [place] [address], [place] [id number] Sep, [facility] [address] [id number] [address] [place] [address], [place] [id number] Sep, [facility] [address] [id number] [address] [place] [address], [place] [id number] August, [facility] [address] [id number] [address] [place] [address], [place] [id number] August, [facility] [address] [id number] [address] [place] [address], [place] [id number] August, [facility] [address] [id number] [address] [place] [address], [place] [id number] August, [facility] [address] [id number] [address] [place] [address], [place] [id number] Jul, [facility] [address] [id number] [address] [place] [address], [place] [id number] 24 Jul, 2011 [facility] [address] [id number] [address] [place] [address], [place] [id number] Jul, [facility] [address] [id number] [address] [place] [address], [place] [id number] 18 Jul, 2011 [facility] [address] [id number] [address] [place] [address], [place] [id number] 18 Jul, 2011 [facility] [address] [id number] [address] [place] [address], [place] [address] Jul, [facility] [address] [id number] [address] [place] [address], [place] [id number] Jul, [facility] [address] [id number] [address] [place] [address], [place] [id number] 10 Jul, 2011 [facility] [address] [id number] [address] [place] [address], [place] [id number] Jul, [facility] [address] [id number] [address] [place] [address], [place] [id number] Jul, [facility] [address] [id number] [address] [place] [address], [place] [id number] 05 Jul, 2011 [facility] [address] [id number] [address] [place] [address], [place] [id number] Jul, [facility] [address] [id number] [address] [place] [address], [place] [id number] Jul, [facility] [address] [id number] [address] [place] [address], [place] [id number] Jul, [facility] [address] [id number] [address] [place] [address], [place] [id number] Jun, [facility] [address] [id number] [address] [place] [address], [place] [id number] Jun, [facility] [address] [id number] [address] [place] [address], [place] [id number] Jun, [facility] [address] [id number] [address] [place] [address], [place] [id number] 16 Jun, 2011 [facility] [address] [id number] [address] [place] [address], [place] [id number] May, [facility] [address] [id number] [address] [place] [address], [place] [id number] 16 May, 2011 [facility] [address] [id number] [address] [place] [address], [place] [id number] May, [facility] [address] [id number] [address] [place] [address], [place] [id number] Apr, [facility] [address] [id number] [address] [place] [address], [place] [id number] Apr, [facility] [address] [id number] [address] [place] [address], [place] [id number] 13 Apr, 2011 [facility] [address] [id number] [address] [place] [address], [place] [id number] Apr, [facility] [address] [id number] [address] [place] [address], [place] [id number] Apr, [facility] [address] [id number] [address] [place] [address], [place] [id number] Mar, [facility] [address] [id number] [address] [place] [address], [place] [id number] Mar, [facility] [address] [id number] [address] [place] [address], [place] [id number] Mar, [facility] [address] [id number] [address] [place] [address], [place] [id number] Mar, [facility] [address] [id number] [address] [place] [address], [place] [id number] Mar, [facility] [address] [id number] [address] [place] [address], [place] [id number] Mar, [facility] [address] [id number] [address] [place] [address], [place] [id number] Mar, [facility] [address] [id number] [address] [place] [address], [place] [id number] Feb, [facility] [address] [id number] [address] [place] [address], [place] [id number] Feb, [facility] [address] [id number] [address] [place] [address], [place] [id number] 22 Feb, 2011 [facility] [address] [id number] [address] [place] [address], [place] [id number] 22 Feb, 2011 [facility] [address] [id number] [address] [place] [address], [place] [id number] 16 Feb, 2011 [facility] [address] [id number] [address] [place] [address], [place] [id number] 14 Feb, 2011 [facility] [address] [id number] [address] [place] [address], [place] [id number] 10 Feb, 2011 [facility] [address] [id number] [address] [place] [address], [place] [id number] 31 Jan, 2011 [facility] [address] [id number] [address] [place] [address], [place] [id number] 31 Jan, 2011 [facility] [address] [id number] [address] [place] [address], [place] [id number] 31 Jan, 2011 [facility] [address] [id number] [address] [place] [address], [place] [id number] 18 Jan, 2011 [facility] [address] [id number] [address] [place] [address], [place] [id number] 17 Jan, 2011 [facility] [address] [id number] [address] [place] [address], [place] [id number] 17 Jan, 2011 [facility] [address] [id number] [address] [place] [address], [place] [id number] 17 Jun, 2010 [facility] [address] [id number] [address] [place] [address], [place] [id number] 30 Mar, 2010 [facility] [address] [id number] [address] [place] [address], [place] [id number] 20 Mar, 2010 [facility] [address] [id number] [address] [place] [address], [place] [id number] 14 Mar, 2010 [facility] [address] [id number] [address] [place] [address] [id number] 14 Mar, 2010 [facility] [address] [id number] [address] [place] [address], [place] [id number] 13 Mar, 2010 [facility] [address] [id number] [address] [place] [address], [place] [id number] 07 Mar, 2010 [facility] [address] [id number] [address] [place] [address], [place] [id number] 02 Mar, 2010 [facility] [address] [id number] [address] [place] [address], [place] [id number] Mar, [facility] [address] [id number] [address] [place] [address], [place] [id number] 30 Feb, 2010 [facility] [address] [id number] [address] [place] [address], [place] [id number] 29 Feb, 2010 [facility] [address] [id number] [address] [place] [address], [place] [id number] 17 Feb, 2010 [facility] [address] [id number] [address] [place] [address], [place] [id number] 17 Feb, 2010 [facility] [address] [id number] [address] [place] [address], [place] [phone] 16 Feb, 2010 [facility] [address] [id number] [address] [place] [address], [place] [id number] 08 Feb, 2010 [facility] [address] [id number] [address] [place] [phone] Feb, [facility] [address] [id number] [address] [place] [phone] Feb, [facility] [address] [id number] [address] [place] [address], [place] [id number] Jan, [facility] [address] [id number] [address] [place] [phone] Jan, [facility] [address] [id number] [address] [place] [phone] Jan, [facility] [address] [id number] [address] [place] [id number] 18 Jan, 2010 [facility] [address] [id number] [address] [place] [phone] 29 Mar, 2009 [facility] [address] [id number] [address] [place] [phone] Mar, [facility] [address] [id number] [address] [place] [id number] Mar, [facility] [address] [id number] [address] [place] [phone] Mar, [facility] [address] [id number] [address] [place] [phone] Mar, [facility] [address] [id number] [address] [place] [phone] Mar, [facility] [address] [id number] [address] [place] [phone] Feb, [facility] [address] [id number] [address] [place] [phone] Feb, [facility] [address] [id number] [address] [place] [phone] Jan, [facility] [address] [id number] [address] [place] [phone] Sep, [facility] [address] [id number] [address] [place] [phone] May, IMMUNIZATIONS No Known Immunizations SOCIAL HISTORY Never Assessed REASON FOR VISIT PLAN OF CARE VITAL SIGNS MEDICATIONS No Known Medications RESULTS No Results PROCEDURES No Known procedures INSTRUCTIONS MEDICATIONS ADMINISTERED No Known Medications MEDICAL (GENERAL) HISTORY Type Description Date Medical History Hypertension Medical History Hyperlipidemia Medical History chronic back pain since age 26 Medical History Anxiety Medical History Hx of Spontaneous Pneumothorax Surgical History right knee arthroscopy Surgical History colon resection Surgical History tonsillectomy Surgical History Left ear surgery Hospitalization History [facility] [place]- Spontane ous Pneumothorax Hospitalization History [facility]- Colon resection [facility] - diarrhea/ couldnt urin ate nov 2017 Hospitalization History pain /hip to foot right side 10/16/19 19
--- OUTSIDE RECORDS SUMMARY | 2019-08-28 09:14 | XMS REPORT ---
Author Author Dixon DE LEON 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 59633105 Problem Chronic pain G89.29 Active 1935359 1 Problem Schizophrenia, unspecified type F20.9 Active 35739484 Problem Constipation K59.00 Active 3230164 8 Problem Environmental allergies Z91.09 Active 198056298 Problem Primary insomnia F51.01 Active 397 2004 Problem Chronic kidney disease, stage III (moderate) N18.3 Active 287541205 Problem Vision loss H54.7 Active 67610632 1 ALLERGIES No Information ENCOUNTERS Encounter Location Date Diagnosis [facility] [address] [facility] [id number] [address] [place] [id number] Oct, Schizophrenia, unspecified t ype F20.9 and Acute kidney injury N17.9 [facility] [address] [facility] [id number] [address] [place] [id number] Oct, [facility] [address] [facility] [id number] [address] [place] [id number] Oct, [facility] [address] [facility] [id number] [address] [place] [id number] Oct, Thoracic back pain, unspecif ied back pain laterality, unspecified chronicity M54.6 [facility] [address] [id number] [address] [place] [id number] Oct, [facility] [address] [id number] [address] [place] [id number] Oct, [facility] [address] [id number] [address] [place] [id number] Sep, Anxiety F41.9 [facility] [address] [id number] [address] [place] [id number] Sep, [facility] [address] [id number] [address] [place] [id number] Sep, Thoracic back pain, unspecif ied back pain laterality, unspecified chronicity M54.6 [facility] [address] [id number] [address] [place] [id number] Sep, [facility] [address] [id number] [address] [place] [id number] Sep, [facility] [address] [id number] [address] [place] [id number] Sep, [facility] [address] [id number] [address] [place] [id number] Sep, [facility] [address] [id number] [address] [place] [id number] Sep, [facility] [address] [id number] [address] [place] [id number] Sep, [facility] [address] [facility] [id number] [address] [place] [id number] 10 Sep, 2018 Chronic pain G89.29 ; Chroni c kidney disease, stage III (moderate) N18.3 ; Hyperlipidemia E78.5 and Insomnia G47.00 [facility] [address] [id number] [address] [place] [id number] Sep, Thoracic back pain, unspecif ied back pain laterality, unspecified chronicity M54.6 [facility] [address] [id number] [address] [place] [id number] August, Anxiety F41.9 [facility] [address] [id number] [address] [place] [id number] August, Thoracic back pain, unspecif ied back pain laterality, unspecified chronicity M54.6 and Anxiety F41.9 [facility] [address] [id number] [address] [place] [id number] August, 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 [facility] [address] [id number] [address] [place] [id number] August, 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 [facility] [address] [id number] [address] [place] [id number] August, [facility] [address] [id number] [address] [place] [id number] August, [facility] [address] [id number] [address] [place] [id number] August, Thoracic back pain, unspecif ied back pain laterality, unspecified chronicity M54.6 [facility] [address] [id number] [address] [place] [id number] August, [facility] [address] [id number] [address] [place] [id number] August, Anxiety F41.9 and Thoracic b ack pain, unspecified back pain laterality, unspecified chronicity M54.6 [facility] [address] [id number] [address] [place] [id number] Jul, [facility] [address] [id number] [address] [place] [id number] Jul, Thoracic back pain, unspecif ied back pain laterality, unspecified chronicity M54.6 [facility] [address] [id number] [address] [place] [id number] Jun, Anxiety F41.9 and Thoracic b ack pain, unspecified back pain laterality, unspecified chronicity M54.6 [facility] [address] [id number] [address] [place] [id number] 08 Jun, 2018 Anxiety F41.9 and Thoracic b ack pain, unspecified back pain laterality, unspecified chronicity M54.6 [facility] [address] [id number] [address] [place] [id number] Jun, Thoracic back pain, unspecif ied back pain laterality, unspecified chronicity M54.6 [facility] [address] [id number] [address] [place] [id number] Jun, Anxiety F41.9 and Thoracic b ack pain, unspecified back pain laterality, unspecified chronicity M54.6 [place] [address] [id number] [address] [place] [id number] May, [facility] [address] [id number] [address] [place] [id number] May, [facility] [address] [id number] [address] [place] [id number] 08 May, 2018 [facility] [address] [id number] [address] [place] [id number] 06 May, 2018 Anxiety F41.9 and Encounter for medication monitoring Z51.81 [facility] [address] [id number] [address] [place] [id number] May, Anxiety F41.9 and Thoracic b ack pain, unspecified back pain laterality, unspecified chronicity M54.6 [facility] [address] [id number] [address] [place] [id number] Apr, Hyperlipidemia 272.4 [facility] [address] [id number] [address] [place] [id number] Apr, Chronic pain G89.29 ; Anxiet y F41.9 ; Cervical radiculopathy M54.12 and Vision loss H54.7 [facility] [address] [id number] [address] [place] [id number] Apr, [facility] [address] [id number] [address] [place] [id number] Apr, Anxiety F41.9 and Thoracic b ack pain, unspecified back pain laterality, unspecified chronicity M54.6 [facility] [address] [id number] [address] [place] [id number] Mar, [facility] [address] [id number] [address] [place] [id number] Mar, Anxiety F41.9 and Thoracic b ack pain, unspecified back pain laterality, unspecified chronicity M54.6 [facility] [address] [id number] [address] [place] [id number] Feb, Anxiety F41.9 and Thoracic b ack pain, unspecified back pain laterality, unspecified chronicity M54.6 [facility] [address] [id number] [address] [place] [id number] 07 Feb, 2018 Thoracic back pain, unspecif ied back pain laterality, unspecified chronicity M54.6 [facility] [address] [id number] [address] [place] [id number] Jan, [facility] [address] [id number] [address] [place] [id number] Jan, Anxiety F41.9 and Thoracic b ack pain, unspecified back pain laterality, unspecified chronicity M54.6 [facility] [address] [id number] [address] [place] [id number] Dec, Diarrhea of presumed infecti ous origin R19.7 [facility] [address] [id number] [address] [place] [id number] 19 Dec, 2017 Diarrhea of presumed infecti ous origin R19.7 [facility] [address] [id number] [address] [place] [id number] 18 Dec, 2017 Thoracic back pain, unspecif ied back pain laterality, unspecified chronicity M54.6 [place] [address] [facility] [id number] [address] [place] [id number] 17 Dec, 2017 [place] [address] [facility] [id number] [address] [place] [id number] Dec, Anxiety F41.9 and Thoracic b ack pain, unspecified back pain laterality, unspecified chronicity M54.6 [place] [address] [facility] [id number] [address] [place] [id number] Dec, Diarrhea of presumed infecti ous origin R19.7 [place] [address] [facility] [id number] [address] [place] [id number] Dec, [place] [address] [facility] [id number] [address] [place] [id number] Dec, Anxiety F41.9 and Thoracic b ack pain, unspecified back pain laterality, unspecified chronicity M54.6 [place] [address] [facility] [id number] [address] [place] [id number] Dec, Anxiety F41.9 and Thoracic b ack pain, unspecified back pain laterality, unspecified chronicity M54.6 [facility] [address] [place] [id number] Dec, Diarrhea of presumed infectious origin R 19.7 ; Anxiety F41.9 ; Thoracic back pain, unspecified back pain laterality, unspecified chronicity M54.6 and HTN (hypertension) I10 [place] [address] [facility] [id number] [address] [place] [id number] Dec, Anxiety F41.9 [facility] [address] [place] [id number] Dec, Anxiety F41.9 ; Diarrhea of presumed inf ectious origin R19.7 ; Generalized abdominal pain R10.84 and Localized edema R60.0 [place] [address] [facility] [id number] [address] [place] [id number] Nov, [facility] [address] [place] [id number] Nov, Anxiety F41.9 ; Urinary retention R33.9 ; Diarrhea of presumed infectious origin R19.7 ; Weakness R53.1 ; Acute kidney failure, unspecified N17.9 ; Chronic kidney disease, stage III (moderate) N18.3 and Thoracic back pain, unspecified back pain laterality, unspecified chronicity M54.6 [place] [address] [id number] Oct, Thoracic back pain, unspecif ied back pain laterality, unspecified chronicity M54.6 and Anxiety F41.9 [place] [facility] [address] [id number] Sep, Thoracic back pain, unspecif ied back pain laterality, unspecified chronicity M54.6 and Anxiety F41.9 [place] [address] [id number] Sep, Thoracic back pain, unspecif ied back pain laterality, unspecified chronicity M54.6 ; Anxiety F41.9 and Encounter for medication monitoring Z51.81 [place] [address] [id number] August, [place] [address] [id number] August, Thoracic back pain, unspecif ied back pain laterality, unspecified chronicity M54.6 and Anxiety F41.9 [place] [address] [id number] August, Hyperlipidemia E78.5 and HTN (hypertension) I10 [place] [address] [id number] August, [place] [address] [place] [id number] [place] [id number] August, Medicare welcome exam Z00.00 ; Chronic kidney failure N18.9 ; Anxiety F41.9 ; Chronic pain G89.29 ; Insomnia G47.00 ; Hyperlipidemia E78.5 ; HTN (hypertension) I10 and Thoracic back pain, unspecified back pain laterality, unspecified chronicity M54.6 [facility] [address] [id number] Jul, [facility] [address] [place] [id number] [address] [place] [id number] Jul, [facility] [address] [id number] Jul, [place] [address] [id number] Jul, Anxiety F41.9 [place] [address] [id number] Jul, Thoracic back pain, unspecif ied back pain laterality, unspecified chronicity M54.6 and Anxiety F41.9 [place] [address] [place] [id number] [address] [place] [id number] Jun, Thoracic back pain, unspecif ied back pain laterality, unspecified chronicity M54.6 and Anxiety F41.9 [place] [address] [place] [id number] [address] [place] [id number] May, Thoracic back pain, unspecif ied back pain laterality, unspecified chronicity M54.6 and Anxiety F41.9 [place] [address] [place] [id number] [address] [place] [id number] Apr, Thoracic back pain, unspecif ied back pain laterality, unspecified chronicity M54.6 and Anxiety F41.9 [place] [address] [place] [id number] [address] [place] [id number] Mar, [place] [address] [id number] Mar, Thoracic back pain, unspecif ied back pain laterality, unspecified chronicity M54.6 and Anxiety F41.9 [place] [address] [place] [id number] [address] [place] [id number] Mar, Thoracic back pain, unspecif ied back pain laterality, unspecified chronicity M54.6 ; HTN (hypertension) I10 ; Hyperlipidemia E78.5 and Anxiety F41.9 [place] [address] [facility] [id number] [address] [place] [id number] Feb, Thoracic back pain, unspecif ied back pain laterality, unspecified chronicity M54.6 and Anxiety F41.9 [place] [address] [place] [id number] [address] [place] [id number] Nov, [place] [address] [place] [id number] [place] [id number] Oct, [place] [address] [place] [id number] [address] [place] [id number] Oct, Thoracic back pain, unspecif ied back pain laterality, unspecified chronicity M54.6 [place] [address] [place] [id number] [address] [place] [id number] Oct, HTN (hypertension) I10 ; Con stipation K59.00 ; Hyperlipidemia E78.5 ; Thoracic back pain, unspecified back pain laterality, unspecified chronicity M54.6 ; Chronic pain G89.29 ; Anxiety F41.9 ; Chronic kidney failure N18.9 ; Environmental allergies Z91.09 ; Vitamin D deficiency E55.9 and Primary insomnia F51.01 [place] [address] [facility] [id number] [address] [place] [id number] Sep, Anxiety F41.9 [place] [address] [facility] [id number] [address] [place] [id number] Sep, [place] [address] [place] [id number] [address] [place] [id number] August, Anxiety F41.9 [place] [address] [place] [id number] [address] [place] [id number] August, [place] [address] [place] [id number] [place] [address] Jul, Anxiety F41.9 [facility] [address] [facility] [id number] [address] [place] [id number] Jul, [facility] [address] [facility] [id number] [address] [place] [id number] Jun, Anxiety F41.9 [facility] [address] [facility] [id number] [address] [place] [id number] Jun, [facility] [address] [facility] [id number] [address] [place] [id number] May, [facility] [address] [place] [id number] [address] [place] [id number] May, [facility] [address] [place] [id number] [address] [place] [id number] May, [facility] [address] [place] [id number] [address] [place] [id number] Apr, [facility] [address] [facility] [id number] [address] [place] [id number] Apr, [facility] [address] [place] [id number] [address] [place] [id number] Apr, Anxiety F41.9 [facility] [address] [place] [id number] [address] [place] [id number] Apr, Anxiety F41.9 [facility] [address] [place] [id number] [address] [place] [id number] Apr, [facility] [address] [facility] [id number] [address] [place] [id number] Mar, HTN (hypertension) I10 ; Phillip mor R25.1 ; Hypercholesterolemia E78.0 ; Constipation K59.00 ; Chronic pain G89.29 ; Hyperlipidemia E78.5 ; Insomnia G47.00 ; Anxiety F41.9 and Thoracic back pain, unspecified back pain laterality, unspecified chronicity M54.6 [facility] [address] [id number] [address] [place] [id number] Mar, Tremor R25.1 ; HTN (hyperten stas) I10 ; Hypercholesterolemia E78.0 ; Constipation K59.00 ; Chronic pain G89.29 ; Hyperlipidemia E78.5 ; Insomnia G47.00 ; Anxiety F41.9 and Thoracic back pain, unspecified back pain laterality, unspecified chronicity M54.6 [facility] [address] [id number] [address] [place] [id number] Mar, [facility] [address] [id number] [address] [place] [id number] Mar, [facility] [address] [facility] [id number] [address] [place] [id number] Feb, [facility] [address] [facility] [id number] [address] [place] [id number] Jan, [facility] [address] [facility] [id number] [address] [place] [id number] Jan, [facility] [address] [facility] [id number] [address] [place] [id number] Dec, [facility] [address] [facility] [id number] [address] [place] [id number] Nov, [facility] [address] [facility] [id number] [address] [place] [id number] Nov, [facility] [address] [facility] [id number] [address] [place] [id number] Oct, Anxiety F41.9 [facility] [address] [id number] [address] [place] [id number] Oct, Chronic pain G89.29 [facility] [address] [facility] [id number] [address] [place] [id number] Sep, [facility] [address] [facility] [id number] [address] [place] [id number] Sep, [facility] [address] [facility] [id number] [address] [place] [id number] 17 Sep, 2015 [facility] [address] [facility] [id number] [address] [place] [id number] Sep, [facility] [address] [facility] [id number] [address] [place] [id number] Sep, Chronic pain syndrome G89.4 [facility] [address] [facility] [id number] [address] [place] [id number] Sep, HTN (hypertension) I10 ; Chr onic pain G89.29 ; Hypercholesterolemia E78.0 ; Chronic kidney failure N18.9 ; Constipation, unspecified constipation type K59.00 ; Anxiety F41.9 and Thoracic back pain, unspecified back pain laterality, unspecified chronicity M54.6 [place] [address] [place] [id number] [address] [place] [id number] August, Chronic pain syndrome G89.4 [place] [address] [place] [id number] [address] [place] [id number] August, Chronic pain syndrome G89.4 [place] [address] [place] [id number] [address] [place] [id number] Jul, Anxiety disorder, unspecifie d F41.9 and Chronic pain syndrome G89.4 [place] [address] [place] [id number] [address] [place] [id number] Jul, Insomnia, unspecified G47.00 and Chronic pain syndrome G89.4 [place] [address] [facility] [id number] [address] [place] [id number] Jul, Allergic rhinitis J30.9 [facility] [address] [facility] [id number] [address] [place] [id number] Jul, Constipation, unspecified K5 9.00 [facility] [address] [facility] [id number] [address] [place] [id number] Jul, [facility] [address] [place] [id number] [address] [place] [id number] Jun, [facility] [address] [id number] [address] [place] [id number] Jun, [facility] [address] [id number] [address] [place] [id number] Jun, [facility] [address] [facility] [id number] [address] [place] [id number] Jun, [facility] [address] [facility] [id number] [address] [place] [id number] Jun, [facility] [address] [facility] [id number] [address] [place] [id number] Jun, [facility] [address] [facility] [id number] [address] [place] [id number] May, [facility] [address] [facility] [id number] [address] [place] [id number] May, [facility] [address] [facility] [id number] [address] [place] [id number] May, Anxiety F41.9 ; Insomnia G47 .00 ; Hyperlipidemia E78.5 ; Chronic pain G89.29 ; HTN (hypertension) I10 ; Environmental allergies V15.09 and Constipation 564.00 [facility] [address] [facility] [id number] [address] [place] [id number] Apr, [facility] [address] [facility] [id number] [address] [place] [id number] Apr, [facility] [address] [facility] [id number] [address] [place] [id number] Apr, [facility] [address] [facility] [id number] [address] [place] [id number] Mar, [facility] [address] [facility] [id number] [address] [place] [id number] Mar, [facility] [address] [facility] [id number] [address] [place] [id number] Mar, [facility] [address] [id number] Feb, [facility] [address] [id number] Feb, [facility] [address] [id number] Feb, [facility] [address] [place] [id number] Jan, HTN (hypertension) I10 ; Con stipation K59.00 ; Chronic pain G89.29 ; Hyperlipidemia E78.5 ; Hypercholesterolemia E78.0 ; Insomnia G47.00 and Anxiety F41.[address] [address] Jan, [address] [address] Dec, [facility] [address] [address] Nov, [address] [address] Oct, Chronic kidney disease, unsp ecified 585.9 ; Chronic pain syndrome 338.4 ; Hyperlipidemia 272.4 and Essential hypertension 401.[address] [address] Oct, Chronic kidney disease 585.9 [facility] [address] [address] Oct, [facility] [address] [place] [id number] Oct, Chronic kidney disease, unsp ecified 585.9 ; Hypercalcemia 275.42 ; Hyperlipidemia 272.4 ; Essential hypertension 401.9 ; Chronic pain syndrome 338.4 ; Insomnia 780.52 ; Constipation 564.00 ; Environmental allergies V15.09 and Anxiety 300.00 [facility] [address] [id number] [address] [place] [id number] 15 Oct, 2014 Chronic kidney disease 585.9 [facility] [address] [id number] [address] [place] [id number] 15 Oct, 2014 [facility] [address] [id number] [address] [place] [id number] 14 Oct, 2014 Chronic kidney disease 585.9 and Hyperlipidemia 272.4 [facility] [address] [id number] [address] [place] [id number] 10 Oct, 2014 [facility] [address] [id number] [address] [place] [id number] Oct, [facility] [address] [id number] [address] [place] [id number] 18 Sep, 2014 [facility] [address] [id number] [address] [place] [id number] Sep, [facility] [address] [id number] [address] [place] [id number] Sep, Chronic kidney disease 585.9 and Hyperlipidemia 272.4 [facility] [address] [id number] [address] [place] [id number] Sep, [facility] [address] [id number] [address] [place] [id number] August, [facility] [address] [id number] [address] [place] [id number] August, [facility] [address] [id number] [address] [place] [id number] Jul, [facility] [address] [id number] [address] [place] [id number] Jul, [facility] [address] [id number] [address] [place] [id number] Jun, [facility] [address] [id number] [address] [place] [id number] Jun, [facility] [address] [id number] [address] [place] [address], [place] [id number] Jun, [facility] [address] [id number] [address] [place] [address], [place] [id number] Jun, [facility] [address] [id number] [address] [place] [address], [place] [id number] Jun, [facility] [address] [id number] [address] [place] [address], [place] [id number] Jun, [facility] [address] [id number] [address] [place] [address], [place] [id number] Jun, [facility] [address] [id number] [address] [place] [address], [place] [id number] Jun, [facility] [address] [id number] [address] [place] [address], [place] [id number] May, [facility] [address] [id number] [address] [place] [address], [place] [id number] May, [facility] [address] [id number] [address] [place] [address], [place] [address] May, [facility] [address] [id number] [address] [place] [address], [place] [address] May, [facility] [address] [id number] [address] [place] [address], [place] [id number] Apr, [facility] [address] [id number] [address] [place] [id number] Apr, [facility] [address] [id number] [address] [place] [address], [place] [id number] Apr, [facility] [address] [id number] [address] [place] [address], [place] [id number] Apr, [facility] [address] [id number] [address] [place] [id number] Apr, [facility] [address] [id number] [address] [place] [address], [place] [id number] Apr, [facility] [address] [id number] [address] [place] [address], [place] [id number] Apr, [facility] [address] [id number] [address] [place] [address], [place] [id number] Apr, [facility] [address] [id number] [address] [place] [address], [place] [id number] Apr, [facility] [address] [id number] [address] [place] [address], [place] [id number] Apr, [facility] [address] [id number] [address] [place] [address], [place] [id number] Apr, [facility] [address] [id number] [address] [place] [address], [place] [id number] Mar, [facility] [address] [id number] [address] [place] [address], [place] [id number] Mar, [facility] [address] [id number] [address] [place] [address], [place] [id number] Feb, [facility] [address] [id number] [address] [place] [address], [place] [id number] Feb, [facility] [address] [id number] [address] [place] [address], [place] [id number] Feb, [facility] [address] [id number] [address] [place] [address], [place] [id number] Feb, [facility] [address] [id number] [address] [place] [address], [place] [id number] Feb, [facility] [address] [id number] [address] [place] [address], [place] [id number] Feb, [facility] [address] [id number] [address] [place] [address], [place] [id number] Feb, [facility] [address] [id number] [address] [place] [address], [place] [id number] Feb, [facility] [address] [id number] [address] [place] [address], [place] [id number] Feb, [facility] [address] [id number] [address] [place] [address], [place] [id number] Feb, [facility] [address] [id number] [address] [place] [address], [place] [id number] Jan, [facility] [address] [id number] [address] [place] [address], [place] [address] Jan, [facility] [address] [id number] [address] [place] [address], [place] [id number] Jan, [facility] [address] [id number] [address] [place] [address], [place] [address] Jan, [facility] [address] [id number] [address] [place] [address], [place] [id number] Jan, [facility] [address] [id number] [address] [place] [address], [place] [id number] Jan, [facility] [address] [id number] [address] [place] [address], [place] [address] Jan, [facility] [address] [id number] [address] [place] [id number] Jan, [facility] [address] [id number] [address] [place] [id number] 16 Jan, 2014 [facility] [address] [id number] [address] [place] [id number] Jan, [facility] [address] [id number] [address] [place] [address], [place] [id number] Jan, [facility] [address] [id number] [address] [place] [address], [place] [address] Dec, [facility] [address] [id number] [address] [place] [address], [place] [id number] Dec, [facility] [address] [id number] [address] [place] [address], [place] [id number] 19 Dec, 2013 [facility] [address] [id number] [address] [place] [address], [place] [id number] 19 Dec, 2013 [facility] [address] [id number] [address] [place] [address], [place] [id number] 18 Dec, 2013 [facility] [address] [id number] [address] [place] [address], [place] [address] 18 Dec, 2013 [facility] [address] [id number] [address] [place] [address], [place] [address] Dec, 2013 [facility] [address] [id number] [address] [place] [address], [place] [address] Dec, [facility] [address] [id number] [address] [place] [address], [place] [id number] Nov, [facility] [address] [id number] [address] [place] [address], [place] [address] Nov, [facility] [address] [id number] [address] [place] [address], [place] [address] Nov, [facility] [address] [id number] [address] [place] [address], [place] [address] Nov, [facility] [address] [id number] [address] [place] [address], [place] [address] Nov, [facility] [address] [id number] [address] [place] [address], [place] [id number] Nov, [facility] [address] [id number] [address] [place] [address], [place] [address] Nov, [facility] [address] [id number] [address] [place] [address], [place] [address] Nov, [facility] [address] [id number] [address] [place] [address], [place] [address] Oct, [facility] [address] [id number] [address] [place] [address], [place] [address] Oct, [facility] [address] [id number] [address] [place] [address], [place] [address] Oct, [facility] [address] [id number] [address] [place] [address], [place] [address] Oct, [facility] [address] [id number] [address] [place] [address], [place] [address] Sep, [facility] [address] [id number] [address] [place] [address], [place] [id number] Sep, [facility] [address] [id number] [address] [place] [address], [place] [address] Sep, [facility] [address] [id number] [address] [place] [address], [place] [id number] Sep, [facility] [address] [id number] [address] [place] [address], [place] [id number] Sep, [facility] [address] [id number] [address] [place] [address], [place] [address] Sep, [facility] [address] [id number] [address] [place] [address], [place] [address] Sep, [facility] [address] [id number] [address] [place] [address], [place] [id number] Sep, [facility] [address] [id number] [address] [place] [address], [place] [address] August, [facility] [address] [id number] [address] [place] [address], [place] [id number] August, [facility] [address] [id number] [address] [place] [address], [place] [address] August, [facility] [address] [id number] [address] [place] [address], [place] [address] August, [facility] [address] [id number] [address] [place] [address], [place] [address] August, [facility] [address] [id number] [address] [place] [address], [place] [address] August, [facility] [address] [id number] [address] [place] [address], [place] [address] August, [facility] [address] [id number] [address] [place] [address], [place] [address] August, [facility] [address] [id number] [address] [place] [address], [place] [address] August, [facility] [address] [id number] [address] [place] [address], [place] [address] August, [facility] [address] [id number] [address] [place] [address], [place] [id number] Jul, [facility] [address] [id number] [address] [place] [address], [place] [id number] Jul, [facility] [address] [id number] [address] [place] [address], [place] [address] Jul, [facility] [address] [id number] [address] [place] [address], [place] [address] Jul, [facility] [address] [id number] [address] [place] [address], [place] [address] Jul, [facility] [address] [id number] [address] [place] [address], [place] [address] Jul, [facility] [address] [id number] [address] [place] [address], [place] [address] Jul, [facility] [address] [id number] [address] [place] [address], [place] [address] Jul, [facility] [address] [id number] [address] [place] [address], [place] [address] Jun, [facility] [address] [id number] [address] [place] [address], [place] [address] Jun, [facility] [address] [id number] [address] [place] [address], [place] [address] Jun, [facility] [address] [id number] [address] [place] [address], [place] [address] Jun, [facility] [address] [id number] [address] [place] [address], [place] [address] Jun, [facility] [address] [id number] [address] [place] [address], [place] [address] Jun, [facility] [address] [id number] [address] [place] [address], [place] [address] May, [facility] [address] [id number] [address] [place] [address], [place] [address] May, [facility] [address] [id number] [address] [place] [address], [place] [address] May, [facility] [address] [id number] [address] [place] [address], [place] [address] May, [facility] [address] [id number] [address] [place] [address], [place] [address] May, [facility] [address] [id number] [address] [place] [address], [place] [address] May, [facility] [address] [id number] [address] [place] [address], [place] [address] May, [facility] [address] [id number] [address] [place] [address], [place] [address] Apr, [facility] [address] [id number] [address] [place] [address], [place] [address] Apr, [facility] [address] [id number] [address] [place] [address], [place] [address] Apr, [facility] [address] [id number] [address] [place] [address], [place] [address] Apr, [facility] [address] [id number] [address] [place] [address], [place] [address] Apr, [facility] [address] [id number] [address] [place] [address], [place] [address] Apr, [facility] [address] [id number] [address] [place] [address], [place] [address] Mar, [facility] [address] [id number] [address] [place] [address], [place] [address] Mar, [facility] [address] [id number] [address] [place] [address], [place] [address] Mar, [facility] [address] [id number] [address] [place] [address], [place] [address] Mar, [facility] [address] [id number] [address] [place] [address], [place] [address] Mar, [facility] [address] [id number] [address] [place] [address], [place] [address] Mar, [facility] [address] [id number] [address] [place] [address], [place] [address] 16 Mar, 2013 [facility] [address] [id number] [address] [place] [address], [place] [address] 16 Mar, 2013 [facility] [address] [id number] [address] [place] [address], [place] [address] Mar, [facility] [address] [id number] [address] [place] [address], [place] [id number] Mar, [facility] [address] [id number] [address] [place] [address], [place] [address] Feb, [facility] [address] [id number] [address] [place] [address], [place] [address] Feb, [facility] [address] [id number] [address] [place] [address], [place] [address] Feb, [facility] [address] [id number] [address] [place] [address], [place] [address] Feb, [facility] [address] [id number] [address] [place] [address], [place] [address] 14 Feb, 2013 [facility] [address] [id number] [address] [place] [address], [place] [id number] 14 Feb, 2013 [facility] [address] [id number] [address] [place] [address], [place] [address] Feb, [facility] [address] [id number] [address] [place] [address], [place] [address] Feb, [facility] [address] [id number] [address] [place] [address], [place] [address] 08 Feb, 2013 [facility] [address] [id number] [address] [place] [address], [place] [address] Feb, [facility] [address] [id number] [address] [place] [address], [place] [address] Jan, [facility] [address] [id number] [address] [place] [address], [place] [address] Jan, [facility] [address] [id number] [address] [place] [address], [place] [address] Jan, [facility] [address] [id number] [address] [place] [address], [place] [address] Jan, [facility] [address] [id number] [address] [place] [address], [place] [address] Jan, [facility] [address] [id number] [address] [place] [address], [place] [id number] Jan, [facility] [address] [id number] [address] [place] [address], [place] [id number] 17 Jan, 2013 [facility] [address] [id number] [address] [place] [address], [place] [address] Jan, [facility] [address] [id number] [address] [place] [address], [place] [address] Jan, [facility] [address] [id number] [address] [place] [address], [place] [id number] 25 Dec, 2012 [facility] [address] [id number] [address] [place] [address], [place] [address] Dec, [facility] [address] [id number] [address] [place] [address], [place] [address] Dec, [facility] [address] [id number] [address] [place] [address], [place] [address] Dec, [facility] [address] [id number] [address] [place] [address], [place] [address] Nov, [facility] [address] [id number] [address] [place] [address], [place] [id number] Nov, [facility] [address] [id number] [address] [place] [address], [place] [id number] Nov, [facility] [address] [id number] [address] [place] [address], [place] [id number] Nov, [facility] [address] [id number] [address] [place] [address], [place] [id number] Nov, [facility] [address] [id number] [address] [place] [address], [place] [id number] Nov, [facility] [address] [id number] [address] [place] [address], [place] [id number] Oct, [facility] [address] [id number] [address] [place] [address], [place] [id number] Oct, [facility] [address] [id number] [address] [place] [address], [place] [id number] Oct, [facility] [address] [id number] [address] [place] [address], [place] [id number] Oct, [facility] [address] [id number] [address] [place] [address], [place] [id number] Sep, [facility] [address] [id number] [address] [place] [address], [place] [id number] Sep, [facility] [address] [id number] [address] [place] [address], [place] [id number] Sep, [facility] [address] [id number] [address] [place] [address], [place] [id number] 14 Sep, 2012 [facility] [address] [id number] [address] [place] [address], [place] [id number] 10 Sep, 2012 [facility] [address] [id number] [address] [place] [address], [place] [id number] 17 Aug, 2012 [facility] [address] [id number] [address] [place] [address], [place] [id number] August, [facility] [address] [id number] [address] [place] [address], [place] [id number] 19 Jul, 2012 [facility] [address] [id number] [address] [place] [address], [place] [id number] 19 Jul, 2012 [facility] [address] [id number] [address] [place] [address], [place] [id number] 15 Jul, 2012 [facility] [address] [id number] [address] [place] [address], [place] [id number] Jul, [facility] [address] [id number] [address] [place] [address], [place] [id number] 08 Jul, 2012 [facility] [address] [id number] [address] [place] [address], [place] [id number] Jun, [facility] [address] [id number] [address] [place] [address], [place] [id number] Jun, [facility] [address] [id number] [address] [place] [address], [place] [id number] 15 Jun, 2012 [facility] [address] [id number] [address] [place] [address], [place] [id number] Jun, [facility] [address] [id number] [address] [place] [address], [place] [id number] Jun, [facility] [address] [id number] [address] [place] [address], [place] [id number] 28 May, 2012 [facility] [address] [id number] [address] [place] [address], [place] [id number] May, [facility] [address] [id number] [address] [place] [address], [place] [id number] May, [facility] [address] [id number] [address] [place] [address], [place] [id number] May, [facility] [address] [id number] [address] [place] [address], [place] [id number] May, [facility] [address] [id number] [address] [place] [address], [place] [id number] May, [facility] [address] [id number] [address] [place] [address], [place] [id number] May, [facility] [address] [id number] [address] [place] [address], [place] [id number] May, [facility] [address] [id number] [address] [place] [address], [place] [id number] May, [facility] [address] [id number] [address] [place] [address], [place] [id number] Apr, [facility] [address] [id number] [address] [place] [address], [place] [id number] Apr, [facility] [address] [id number] [address] [place] [address], [place] [id number] Apr, [facility] [address] [id number] [address] [place] [address], [place] [id number] Apr, [facility] [address] [id number] [address] [place] [address], [place] [id number] Apr, [facility] [address] [id number] [address] [place] [address], [place] [id number] Mar, [facility] [address] [id number] [address] [place] [address], [place] [id number] Mar, [facility] [address] [id number] [address] [place] [address], [place] [id number] Mar, [facility] [address] [id number] [address] [place] [address] [place] [id number] 20 Mar, 2012 [facility] [address] [id number] [address] [place] [address], [place] [id number] 19 Mar, 2012 [facility] [address] [id number] [address] [place] [address], [place] [id number] 19 Mar, 2012 [facility] [address] [id number] [address] [place] [address], [place] [id number] 17 Mar, 2012 [facility] [address] [id number] [address] [place] [address], [place] [id number] 17 Mar, 2012 [facility] [address] [id number] [address] [place] [address], [place] [id number] 07 Mar, 2012 [facility] [address] [id number] [address] [place] [address], [place] [id number] 07 Mar, 2012 [facility] [address] [id number] [address] [place] [address], [place] [id number] 30 Feb, 2012 [facility] [address] [id number] [address] [place] [address], [place] [id number] 30 Feb, 2012 [facility] [address] [id number] [address] [place] [address], [place] [id number] 29 Feb, 2012 [facility] [address] [id number] [address] [place] [address], [place] [id number] 29 Feb, 2012 [facility] [address] [id number] [address] [place] [address], [place] [id number] Feb, [facility] [address] [id number] [address] [place] [address], [place] [id number] 23 Feb, 2012 [facility] [address] [id number] [address] [place] [address], [place] [id number] 20 Feb, 2012 [facility] [address] [id number] [address] [place] [address], [place] [id number] 20 Feb, 2012 [facility] [address] [id number] [address] [place] [address], [place] [id number] 16 Feb, 2012 [facility] [address] [id number] [address] [place] [address], [place] [id number] 16 Feb, 2012 [facility] [address] [id number] [address] [place] [address], [place] [id number] 13 Feb, 2012 [facility] [address] [id number] [address] [place] [address], [place] [id number] 13 Feb, 2012 [facility] [address] [id number] [address] [place] [address], [place] [id number] Feb, [facility] [address] [id number] [address] [place] [address], [place] [id number] Feb, [facility] [address] [id number] [address] [place] [address], [place] [id number] Feb, [facility] [address] [id number] [address] [place] [address], [place] [id number] Feb, [facility] [address] [id number] [address] [place] [address], [place] [id number] Feb, [facility] [address] [id number] [address] [place] [address], [place] [id number] Feb, [facility] [address] [id number] [address] [place] [address], [place] [id number] Jan, [facility] [address] [id number] [address] [place] [address], [place] [id number] Jan, [facility] [address] [id number] [address] [place] [address], [place] [id number] 31 Jan, 2012 [facility] [address] [id number] [address] [place] [address], [place] [id number] 31 Jan, 2012 [facility] [address] [id number] [address] [place] [address], [place] [id number] Jan, [facility] [address] [id number] [address] [place] [address], [place] [id number] 24 Jan, 2012 [facility] [address] [id number] [address] [place] [address], [place] [id number] Jan, [facility] [address] [id number] [address] [place] [address], [place] [id number] Jan, [facility] [address] [id number] [address] [place] [address], [place] [id number] Jan, [facility] [address] [id number] [address] [place] [address], [place] [id number] Jan, [facility] [address] [id number] [address] [place] [address], [place] [id number] 24 Dec, 2011 [facility] [address] [id number] [address] [place] [address], [place] [id number] Dec, [facility] [address] [id number] [address] [place] [address], [place] [id number] Dec, [facility] [address] [id number] [address] [place] [address], [place] [id number] Dec, [facility] [address] [id number] [address] [place] [address], [place] [id number] Nov, [facility] [address] [id number] [address] [place] [address], [place] [id number] Nov, [facility] [address] [id number] [address] [place] [address], [place] [id number] Nov, [facility] [address] [id number] [address] [place] [address], [place] [id number] Nov, [facility] [address] [id number] [address] [place] [address], [place] [id number] Nov, [facility] [address] [id number] [address] [place] [address], [place] [id number] Nov, [facility] [address] [id number] [address] [place] [address], [place] [id number] Oct, [facility] [address] [id number] [address] [place] [address], [place] [id number] Oct, [facility] [address] [id number] [address] [place] [address], [place] [id number] 06 Oct, 2011 [facility] [address] [id number] [address] [place] [address], [place] [id number] Oct, [facility] [address] [id number] [address] [place] [address], [place] [id number] Oct, [facility] [address] [id number] [address] [place] [address], [place] [id number] Sep, [facility] [address] [id number] [address] [place] [address], [place] [id number] Sep, [facility] [address] [id number] [address] [place] [address], [place] [id number] Sep, [facility] [address] [id number] [address] [place] [address], [place] [id number] Sep, [facility] [address] [id number] [address] [place] [address], [place] [id number] Sep, [facility] [address] [id number] [address] [place] [address], [place] [address] August, [facility] [address] [id number] [address] [place] [address], [place] [id number] August, [facility] [address] [id number] [address] [place] [address], [place] [id number] August, [facility] [address] [id number] [address] [place] [address], [place] [id number] August, [facility] [address] [id number] [address] [place] [address], [place] [id number] Jul, [facility] [address] [id number] [address] [place] [address], [place] [id number] 24 Jul, 2011 [facility] [address] [id number] [address] [place] [address], [place] [id number] Jul, [facility] [address] [id number] [address] [place] [address], [place] [id number] 18 Jul, 2011 [facility] [address] [id number] [address] [place] [address], [place] [id number] 18 Jul, 2011 [facility] [address] [id number] [address] [place] [address], [place] [id number] Jul, [facility] [address] [id number] [address] [place] [address], [place] [id number] Jul, [facility] [address] [id number] [address] [place] [address], [place] [id number] 10 Jul, 2011 [facility] [address] [id number] [address] [place] [address], [place] [id number] Jul, [facility] [address] [id number] [address] [place] [address], [place] [id number] Jul, [facility] [address] [id number] [address] [place] [address], [place] [id number] 05 Jul, 2011 [facility] [address] [id number] [address] [place] [address], [place] [id number] Jul, [facility] [address] [id number] [address] [place] [address], [place] [id number] Jul, [facility] [address] [id number] [address] [place] [address], [place] [id number] Jul, [facility] [address] [id number] [address] [place] [address], [place] [id number] Jun, [facility] [address] [id number] [address] [place] [address], [place] [id number] Jun, [facility] [address] [id number] [address] [place] [address], [place] [id number] Jun, [facility] [address] [id number] [address] [place] [address], [place] [id number] 16 Jun, 2011 [facility] [address] [id number] [address] [place] [address], [place] [id number] May, [facility] [address] [id number] [address] [place] [address], [place] [id number] 16 May, 2011 [facility] [address] [id number] [address] [place] [address], [place] [address] May, [facility] [address] [id number] [address] [place] [address], [place] [address] Apr, [facility] [address] [id number] [address] [place] [address], [place] [id number] Apr, [facility] [address] [id number] [address] [place] [address], [place] [id number] 13 Apr, 2011 [facility] [address] [id number] [address] [place] [address], [place] [id number] Apr, [facility] [address] [id number] [address] [place] [address], [place] [id number] Apr, [facility] [address] [id number] [address] [place] [address], [place] [id number] Mar, [facility] [address] [id number] [address] [place] [address], [place] [id number] Mar, [facility] [address] [id number] [address] [place] [address], [place] [id number] Mar, [facility] [address] [id number] [address] [place] [address], [place] [id number] Mar, [facility] [address] [id number] [address] [place] [address], [place] [id number] Mar, [facility] [address] [id number] [address] [place] [address], [place] [id number] Mar, [facility] [address] [id number] [address] [place] [address], [place] [id number] Mar, [facility] [address] [id number] [address] [place] [address], [place] [id number] Feb, [facility] [address] [id number] [address] [place] [address], [place] [id number] Feb, [facility] [address] [id number] [address] [place] [address], [place] [id number] 22 Feb, 2011 [facility] [address] [id number] [address] [place] [address], [place] [id number] 22 Feb, 2011 [facility] [address] [id number] [address] [place] [address], [place] [id number] 16 Feb, 2011 [facility] [address] [id number] [address] [place] [address], [place] [id number] 14 Feb, 2011 [facility] [address] [id number] [address] [place] [address], [place] [id number] 10 Feb, 2011 [facility] [address] [id number] [address] [place] [address], [place] [id number] 31 Jan, 2011 [facility] [address] [id number] [address] [place] [address], [place] [id number] 31 Jan, 2011 [facility] [address] [id number] [address] [place] [address], [place] [id number] 31 Jan, 2011 [facility] [address] [id number] [address] [place] [address], [place] [id number] 18 Jan, 2011 [facility] [address] [id number] [address] [place] [address], [place] [id number] 17 Jan, 2011 [facility] [address] [id number] [address] [place] [address], [place] [id number] 17 Jan, 2011 [facility] [address] [id number] [address] [place] [address], [place] [id number] 17 Jun, 2010 [facility] [address] [id number] [address] [place] [address], [place] [id number] 30 Mar, 2010 [facility] [address] [id number] [address] [place] [address], [place] [id number] 20 Mar, 2010 [facility] [address] [id number] [address] [place] [address], [place] [id number] 14 Mar, 2010 [facility] [address] [id number] [address] [place] [address] [address] 14 Mar, 2010 [facility] [address] [id number] [address] [place] [address], [place] [id number] 13 Mar, 2010 [facility] [address] [id number] [address] [place] [address], [place] [id number] 07 Mar, 2010 [facility] [address] [id number] [address] [place] [address], [place] [id number] 02 Mar, 2010 [facility] [address] [id number] [address] [place] [address], [place] [id number] Mar, [facility] [address] [id number] [address] [place] [address], [place] [id number] 30 Feb, 2010 [facility] [address] [id number] [address] [place] [address], [place] [id number] 29 Feb, 2010 [facility] [address] [id number] [address] [place] [address], [place] [id number] 17 Feb, 2010 [facility] [address] [id number] [address] [place] [address], [place] [id number] 17 Feb, 2010 [facility] [address] [id number] [address] [place] [address], [place] [id number] 16 Feb, 2010 [facility] [address] [id number] [address] [place] [address], [place] [id number] 08 Feb, 2010 [facility] [address] [id number] [address] [place] [id number] Feb, [facility] [address] [id number] [address] [place] [id number] Feb, [facility] [address] [id number] [address] [place] [address], [place] [id number] Jan, [facility] [address] [id number] [address] [place] [id number] Jan, [facility] [address] [id number] [address] [place] [id number] Jan, [facility] [address] [id number] [address] [place] [id number] 18 Jan, 2010 [facility] [address] [id number] [address] [place] [id number] 29 Mar, 2009 [facility] [address] [id number] [address] [place] [id number] Mar, [facility] [address] [id number] [address] [place] [id number] Mar, [facility] [address] [id number] [address] [place] [id number] Mar, [facility] [address] [id number] [address] [place] [id number] Mar, [facility] [address] [id number] [address] [place] [id number] Mar, [facility] [address] [id number] [address] [place] [id number] Feb, [facility] [address] [id number] [address] [place] [id number] Feb, [facility] [address] [id number] [address] [place] [id number] Jan, [facility] [address] [id number] [address] [place] [id number] Sep, [facility] [address] [id number] [address] [place] [id number] May, IMMUNIZATIONS No Known Immunizations SOCIAL HISTORY [...] Surgical History Left ear surgery Hospitalization History [facility] in [place]- Spontane ous Pneumothorax Hospitalization History [facility]- Colon resection Hospitalization History [facility] - diarrhea/ couldnt urin ate nov 2017 Hospitalization History pain /hip to foot right side 10/16/19 19
--- OUTSIDE RECORDS SUMMARY | 2019-08-28 09:15 | XMS REPORT ---
Author Author Dixon DE LEON [facility] Address [address] [place] [address] Care Team Providers Care Professor Of Philosophy Name Role Phone STEPHAN DE LEON Unavailable PROBLEMS Type Condition ICD9-CM Code [id number] Code Onset Dates Condition S tatus SNOMED Code Problem Insomnia G47.00 Active 147147103 Problem Anxiety F41.9 Active 08761273 Problem HTN (hypertension) I10 Active 3 3381561 Problem Hyperlipidemia E78.5 Active 74128 004 Problem Thoracic back pain, unspecif ied back pain laterality, unspecified chronicity M54.6 Active 141056357 Problem Vitamin D deficiency E55.9 Active 57223624 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 81715647 Problem Chronic pain G89.29 Active 2854262 1 Problem Schizophrenia, unspecified type F20.9 Active 43545996 Problem Constipation K59.00 Active 0947083 8 Problem Environmental allergies Z91.09 Active 383082751 Problem Primary insomnia F51.01 Active 397 2004 Problem Chronic kidney disease, stage III (moderate) N18.3 Active 369639929 Problem Vision loss H54.7 Active 31193012 1 ALLERGIES No Information ENCOUNTERS Encounter Location Date Diagnosis [facility] [address] [facility] [id number] [address] [place] [address] Oct, Schizophrenia, unspecified t ype F20.9 and Acute kidney injury N17.9 [facility] [address] [facility] [id number] [address] [place] [address] Oct, [facility] [address] [facility] [id number] [address] [place] [address] Oct, [facility] [address] [facility] [id number] [address] [place] [address] Oct, Thoracic back pain, unspecif ied back pain laterality, unspecified chronicity M54.6 [facility] [address] [id number] [address] [place] [address] Oct, [facility] [address] [id number] [address] [place] [id number] Oct, [facility] [address] [id number] [address] [place] [address] Sep, Anxiety F41.9 [facility] [address] [id number] [address] [place] [address] Sep, [facility] [address] [id number] [address] [place] [address] Sep, Thoracic back pain, unspecif ied back pain laterality, unspecified chronicity M54.6 [facility] [address] [id number] [address] [place] [address] Sep, [facility] [address] [id number] [address] [place] [address] Sep, [facility] [address] [id number] [address] [place] [phone] Sep, [facility] [address] [id number] [address] [place] [address] Sep, [facility] [address] [id number] [address] [place] [address] Sep, [facility] [address] [id number] [address] [place] [address] Sep, [facility] [address] [facility] [id number] [address] [place] [address] 10 Sep, 2018 Chronic pain G89.29 ; Chroni c kidney disease, stage III (moderate) N18.3 ; Hyperlipidemia E78.5 and Insomnia G47.00 [facility] [address] [id number] [address] [place] [address] Sep, Thoracic back pain, unspecif ied back pain laterality, unspecified chronicity M54.6 [facility] [address] [id number] [address] [place] [address] August, Anxiety F41.9 [facility] [address] [id number] [address] [place] [phone] August, Thoracic back pain, unspecif ied back pain laterality, unspecified chronicity M54.6 and Anxiety F41.9 [facility] [address] [id number] [address] [place] [address] August, 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 [facility] [address] [id number] [address] [place] [address] August, 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 [facility] [address] [id number] [address] [place] [address] August, [facility] [address] [id number] [address] [place] [address] August, [facility] [address] [id number] [address] [place] [address] August, Thoracic back pain, unspecif ied back pain laterality, unspecified chronicity M54.6 [facility] [address] [id number] [address] [place] [address] August, [facility] [address] [id number] [address] [place] [phone] August, Anxiety F41.9 and Thoracic b ack pain, unspecified back pain laterality, unspecified chronicity M54.6 [facility] [address] [id number] [address] [place] [address] Jul, [facility] [address] [id number] [address] [place] [address] Jul, Thoracic back pain, unspecif ied back pain laterality, unspecified chronicity M54.6 [facility] [address] [id number] [address] [place] [address] Jun, Anxiety F41.9 and Thoracic b ack pain, unspecified back pain laterality, unspecified chronicity M54.6 [facility] [address] [id number] [address] [place] [phone] 08 Jun, 2018 Anxiety F41.9 and Thoracic b ack pain, unspecified back pain laterality, unspecified chronicity M54.6 [facility] [address] [id number] [address] [place] [address] Jun, Thoracic back pain, unspecif ied back pain laterality, unspecified chronicity M54.6 [facility] [address] [id number] [address] [place] [address] Jun, Anxiety F41.9 and Thoracic b ack pain, unspecified back pain laterality, unspecified chronicity M54.6 [place] [address] [id number] [address] [place] [address] May, [facility] [address] [id number] [address] [place] [address] May, [facility] [address] [id number] [address] [place] [address] 08 May, 2018 [facility] [address] [id number] [address] [place] [address] 06 May, 2018 Anxiety F41.9 and Encounter for medication monitoring Z51.81 [facility] [address] [id number] [address] [place] [address] May, Anxiety F41.9 and Thoracic b ack pain, unspecified back pain laterality, unspecified chronicity M54.6 [facility] [address] [id number] [address] [place] [address] Apr, Hyperlipidemia 272.4 [facility] [address] [id number] [address] [place] [address] Apr, Chronic pain G89.29 ; Anxiet y F41.9 ; Cervical radiculopathy M54.12 and Vision loss H54.7 [facility] [address] [id number] [address] [place] [address] Apr, [facility] [address] [id number] [address] [place] [address] Apr, Anxiety F41.9 and Thoracic b ack pain, unspecified back pain laterality, unspecified chronicity M54.6 [facility] [address] [id number] [address] [place] [address] Mar, [facility] [address] [id number] [address] [place] [address] Mar, Anxiety F41.9 and Thoracic b ack pain, unspecified back pain laterality, unspecified chronicity M54.6 [facility] [address] [id number] [address] [place] [address] Feb, Anxiety F41.9 and Thoracic b ack pain, unspecified back pain laterality, unspecified chronicity M54.6 [facility] [address] [id number] [address] [place] [address] 07 Feb, 2018 Thoracic back pain, unspecif ied back pain laterality, unspecified chronicity M54.6 [facility] [address] [id number] [address] [place] [address] Jan, [facility] [address] [id number] [address] [place] [address] Jan, Anxiety F41.9 and Thoracic b ack pain, unspecified back pain laterality, unspecified chronicity M54.6 [facility] [address] [id number] [address] [place] [address] Dec, Diarrhea of presumed infecti ous origin R19.7 [facility] [address] [id number] [address] [place] [address] 19 Dec, 2017 Diarrhea of presumed infecti ous origin R19.7 [facility] [address] [id number] [address] [place] [address] 18 Dec, 2017 Thoracic back pain, unspecif ied back pain laterality, unspecified chronicity M54.6 [place] [address] [facility] [id number] [address] [place] [address] 17 Dec, 2017 [place] [address] [facility] [id number] [address] [place] [address] Dec, Anxiety F41.9 and Thoracic b ack pain, unspecified back pain laterality, unspecified chronicity M54.6 [place] [address] [facility] [id number] [address] [place] [address] Dec, Diarrhea of presumed infecti ous origin R19.7 [place] [address] [facility] [id number] [address] [place] [address] Dec, [place] [address] [facility] [id number] [address] [place] [address] Dec, Anxiety F41.9 and Thoracic b ack pain, unspecified back pain laterality, unspecified chronicity M54.6 [place] [address] [facility] [id number] [address] [place] [address] Dec, Anxiety F41.9 and Thoracic b ack pain, unspecified back pain laterality, unspecified chronicity M54.6 [facility] [employer] [address] [place] [id number] Dec, Diarrhea of presumed infectious origin R 19.7 ; Anxiety F41.9 ; Thoracic back pain, unspecified back pain laterality, unspecified chronicity M54.6 and HTN (hypertension) I10 [place] [address] [facility] [id number] [address] [place] [address] Dec, Anxiety F41.9 [facility] [employer] [address] [place] [id number] Dec, Anxiety F41.9 ; Diarrhea of presumed inf ectious origin R19.7 ; Generalized abdominal pain R10.84 and Localized edema R60.0 [place] [address] [facility] [id number] [address] [place] [address] Nov, [facility] [employer] [address] [place] [id number] Nov, Anxiety F41.9 ; Urinary retention R33.9 ; Diarrhea of presumed infectious origin R19.7 ; Weakness R53.1 ; Acute kidney failure, unspecified N17.9 ; Chronic kidney disease, stage III (moderate) N18.3 and Thoracic back pain, unspecified back pain laterality, unspecified chronicity M54.6 [place] [address] [address] Oct, Thoracic back pain, unspecif ied back pain laterality, unspecified chronicity M54.6 and Anxiety F41.9 [place] [address] [address] Sep, Thoracic back pain, unspecif ied back pain laterality, unspecified chronicity M54.6 and Anxiety F41.9 [place] [address] [address] Sep, Thoracic back pain, unspecif ied back pain laterality, unspecified chronicity M54.6 ; Anxiety F41.9 and Encounter for medication monitoring Z51.81 [place] [address] [address] August, [place] [address] [address] August, Thoracic back pain, unspecif ied back pain laterality, unspecified chronicity M54.6 and Anxiety F41.9 [place] [address] [address] August, Hyperlipidemia E78.5 and HTN (hypertension) I10 [place] [address] [address] August, [place] [address] [place] [id number] [place] [address] August, Medicare welcome exam Z00.00 ; Chronic kidney failure N18.9 ; Anxiety F41.9 ; Chronic pain G89.29 ; Insomnia G47.00 ; Hyperlipidemia E78.5 ; HTN (hypertension) I10 and Thoracic back pain, unspecified back pain laterality, unspecified chronicity M54.6 [facility] [address] [address] Jul, [facility] [address] [place] [id number] [address] [place] [address] Jul, [facility] [address] [address] Jul, [place] [address] [address] Jul, Anxiety F41.9 [place] [address] [address] Jul, Thoracic back pain, unspecif ied back pain laterality, unspecified chronicity M54.6 and Anxiety F41.9 [place] [address] [place] [id number] [address] [place] [address] Jun, Thoracic back pain, unspecif ied back pain laterality, unspecified chronicity M54.6 and Anxiety F41.9 [place] [address] [place] [id number] [address] [place] [address] May, Thoracic back pain, unspecif ied back pain laterality, unspecified chronicity M54.6 and Anxiety F41.9 [place] [address] [place] [id number] [address] [place] [address] Apr, Thoracic back pain, unspecif ied back pain laterality, unspecified chronicity M54.6 and Anxiety F41.9 [place] [address] [place] [id number] [address] [place] [address] Mar, [place] [address] [address] Mar, Thoracic back pain, unspecif ied back pain laterality, unspecified chronicity M54.6 and Anxiety F41.9 [place] [address] [place] [id number] [address] [place] [address] Mar, Thoracic back pain, unspecif ied back pain laterality, unspecified chronicity M54.6 ; HTN (hypertension) I10 ; Hyperlipidemia E78.5 and Anxiety F41.9 [place] [address] [facility] [id number] [address] [place] [address] Feb, Thoracic back pain, unspecif ied back pain laterality, unspecified chronicity M54.6 and Anxiety F41.9 [place] [address] [place] [id number] [address] [place] [address] Nov, [place] [address] [place] [id number] [place] [address] Oct, [place] [address] [place] [id number] [address] [place] [address] Oct, Thoracic back pain, unspecif ied back pain laterality, unspecified chronicity M54.6 [place] [address] [place] [id number] [address] [place] [address] Oct, HTN (hypertension) I10 ; Con stipation K59.00 ; Hyperlipidemia E78.5 ; Thoracic back pain, unspecified back pain laterality, unspecified chronicity M54.6 ; Chronic pain G89.29 ; Anxiety F41.9 ; Chronic kidney failure N18.9 ; Environmental allergies Z91.09 ; Vitamin D deficiency E55.9 and Primary insomnia F51.01 [place] [address] [facility] [id number] [address] [place] [address] Sep, Anxiety F41.9 [place] [address] [facility] [id number] [address] [place] [address] Sep, [place] [address] [place] [id number] [address] [place] [address] August, Anxiety F41.9 [place] [address] [place] [id number] [address] [place] [address] August, [place] [address] [place] [id number] [address] Jul, Anxiety F41.9 [facility] [address] [facility] [id number] [address] [place] [address] Jul, [facility] [address] [facility] [id number] [address] [place] [address] Jun, Anxiety F41.9 [facility] [address] [facility] [id number] [address] [place] [address] Jun, [facility] [address] [facility] [id number] [address] [place] [address] May, [facility] [address] [place] [id number] [address] [place] [address] May, [facility] [address] [place] [id number] [address] [place] [address] May, [facility] [address] [place] [id number] [address] [place] [address] Apr, [facility] [address] [facility] [id number] [address] [place] [address] Apr, [facility] [address] [place] [id number] [address] [place] [address] Apr, Anxiety F41.9 [facility] [address] [place] [id number] [address] [place] [address] Apr, Anxiety F41.9 [facility] [address] [place] [id number] [address] [place] [address] Apr, [facility] [address] [facility] [id number] [address] [place] [address] Mar, HTN (hypertension) I10 ; Phillip mor R25.1 ; Hypercholesterolemia E78.0 ; Constipation K59.00 ; Chronic pain G89.29 ; Hyperlipidemia E78.5 ; Insomnia G47.00 ; Anxiety F41.9 and Thoracic back pain, unspecified back pain laterality, unspecified chronicity M54.6 [facility] [address] [id number] [address] [place] [address] Mar, Tremor R25.1 ; HTN (hyperten stas) I10 ; Hypercholesterolemia E78.0 ; Constipation K59.00 ; Chronic pain G89.29 ; Hyperlipidemia E78.5 ; Insomnia G47.00 ; Anxiety F41.9 and Thoracic back pain, unspecified back pain laterality, unspecified chronicity M54.6 [facility] [address] [id number] [address] [place] [address] Mar, [facility] [address] [id number] [address] [place] [address] Mar, [facility] [address] [facility] [id number] [address] [place] [address] Feb, [facility] [address] [facility] [id number] [address] [place] [address] Jan, [facility] [address] [facility] [id number] [address] [place] [address] Jan, [facility] [address] [facility] [id number] [address] [place] [address] Dec, [facility] [address] [facility] [id number] [address] [place] [address] Nov, [facility] [address] [facility] [id number] [address] [place] [address] Nov, [facility] [address] [facility] [id number] [address] [place] [address] Oct, Anxiety F41.9 [facility] [address] [id number] [address] [place] [address] Oct, Chronic pain G89.29 [facility] [address] [facility] [id number] [address] [place] [address] Sep, [facility] [address] [facility] [id number] [address] [place] [address] Sep, [facility] [address] [facility] [id number] [address] [place] [address] 17 Sep, 2015 [facility] [address] [facility] [id number] [address] [place] [address] Sep, [facility] [address] [facility] [id number] [address] [place] [address] Sep, Chronic pain syndrome G89.4 [facility] [address] [facility] [id number] [address] [place] [address] Sep, HTN (hypertension) I10 ; Chr onic pain G89.29 ; Hypercholesterolemia E78.0 ; Chronic kidney failure N18.9 ; Constipation, unspecified constipation type K59.00 ; Anxiety F41.9 and Thoracic back pain, unspecified back pain laterality, unspecified chronicity M54.6 [place] [address] [place] [id number] [address] [place] [address] August, Chronic pain syndrome G89.4 [place] [address] [place] [id number] [address] [place] [address] August, Chronic pain syndrome G89.4 [place] [address] [place] [id number] [address] [place] [address] Jul, Anxiety disorder, unspecifie d F41.9 and Chronic pain syndrome G89.4 [place] [address] [place] [id number] [address] [place] [address] Jul, Insomnia, unspecified G47.00 and Chronic pain syndrome G89.4 [place] [address] [facility] [id number] [address] [place] [address] Jul, Allergic rhinitis J30.9 [facility] [address] [facility] [id number] [address] [place] [address] Jul, Constipation, unspecified K5 9.00 [facility] [address] [facility] [id number] [address] [place] [address] Jul, [facility] [address] [place] [id number] [address] [place] [address] Jun, [facility] [address] [id number] [address] [place] [address] Jun, [facility] [address] [id number] [address] [place] [address] Jun, [facility] [address] [facility] [id number] [address] [place] [address] Jun, [facility] [address] [facility] [id number] [address] [place] [address] Jun, [facility] [address] [facility] [id number] [address] [place] [id number] Jun, [facility] [address] [facility] [id number] [address] [place] [address] May, [facility] [address] [facility] [id number] [address] [place] [address] May, [facility] [address] [facility] [id number] [address] [place] [id number] May, Anxiety F41.9 ; Insomnia G47 .00 ; Hyperlipidemia E78.5 ; Chronic pain G89.29 ; HTN (hypertension) I10 ; Environmental allergies V15.09 and Constipation 564.00 [facility] [address] [facility] [id number] [address] [place] [id number] Apr, [facility] [address] [facility] [id number] [address] [place] [phone] Apr, [facility] [address] [facility] [id number] [address] [place] [phone] Apr, [facility] [address] [facility] [id number] [address] [place] [id number] Mar, [facility] [address] [facility] [id number] [address] [place] [phone] Mar, [facility] [address] [facility] [id number] [address] [place] [phone] Mar, [facility] [address] [id number] Feb, [facility] [address] [id number] Feb, [facility] [facility] [address] [address] Feb, [facility] [address] [place] [address] Jan, HTN (hypertension) I10 ; Con stipation K59.00 ; Chronic pain G89.29 ; Hyperlipidemia E78.5 ; Hypercholesterolemia E78.0 ; Insomnia G47.00 and Anxiety F41.[address] [address] Jan, [address] [address] Dec, [facility] [address] [address] Nov, [address] [address] Oct, Chronic kidney disease, unsp ecified 585.9 ; Chronic pain syndrome 338.4 ; Hyperlipidemia 272.4 and Essential hypertension 401.[address] [address] Oct, Chronic kidney disease 585.9 [facility] [address] [address] Oct, [facility] [address] [place] [address] Oct, Chronic kidney disease, unsp ecified 585.9 ; Hypercalcemia 275.42 ; Hyperlipidemia 272.4 ; Essential hypertension 401.9 ; Chronic pain syndrome 338.4 ; Insomnia 780.52 ; Constipation 564.00 ; Environmental allergies V15.09 and Anxiety 300.00 [facility] [address] [id number] [address] [place] [address] 15 Oct, 2014 Chronic kidney disease 585.9 [facility] [address] [id number] [address] [place] [address] 15 Oct, 2014 [facility] [address] [id number] [address] [place] [address] 14 Oct, 2014 Chronic kidney disease 585.9 and Hyperlipidemia 272.4 [facility] [address] [id number] [address] [place] [address] 10 Oct, 2014 [facility] [address] [id number] [address] [place] [address] Oct, [facility] [address] [id number] [address] [place] [address] 18 Sep, 2014 [facility] [address] [id number] [address] [place] [address] Sep, [facility] [address] [id number] [address] [place] [address] Sep, Chronic kidney disease 585.9 and Hyperlipidemia 272.4 [facility] [address] [id number] [address] [place] [address] Sep, [facility] [address] [id number] [address] [place] [address] August, [facility] [address] [id number] [address] [place] [address] August, [facility] [address] [id number] [address] [place] [address] Jul, [facility] [address] [id number] [address] [place] [address] Jul, [facility] [address] [id number] [address] [place] [address] Jun, [facility] [address] [id number] [address] [place] [address] Jun, [facility] [address] [id number] [address] [place] [address], [place] [address] Jun, [facility] [address] [id number] [address] [place] [address], [place] [address] Jun, [facility] [address] [id number] [address] [place] [address], [place] [address] Jun, [facility] [address] [id number] [address] [place] [address], [place] [address] Jun, [facility] [address] [id number] [address] [place] [address], [place] [address] Jun, [facility] [address] [id number] [address] [place] [address], [place] [address] Jun, [facility] [address] [id number] [address] [place] [address], [place] [address] May, [facility] [address] [id number] [address] [place] [address], [place] [address] May, [facility] [address] [id number] [address] [place] [address], [place] [address] May, [facility] [address] [id number] [address] [place] [address], [place] [address] May, [facility] [address] [id number] [address] [place] [address], [place] [address] Apr, [facility] [address] [id number] [address] [place] [address] Apr, [facility] [address] [id number] [address] [place] [address], [place] [address] Apr, [facility] [address] [id number] [address] [place] [address], [place] [address] Apr, [facility] [address] [id number] [address] [place] [address] Apr, [facility] [address] [id number] [address] [place] [address], [place] [address] Apr, [facility] [address] [id number] [address] [place] [address], [place] [address] Apr, [facility] [address] [id number] [address] [place] [address], [place] [address] Apr, [facility] [address] [id number] [address] [place] [address], [place] [address] Apr, [facility] [address] [id number] [address] [place] [address], [place] [address] Apr, [facility] [address] [id number] [address] [place] [address], [place] [address] Apr, [facility] [address] [id number] [address] [place] [address], [place] [address] Mar, [facility] [address] [id number] [address] [place] [address], [place] [address] Mar, [facility] [address] [id number] [address] [place] [address], [place] [address] Feb, [facility] [address] [id number] [address] [place] [address], [place] [address] Feb, [facility] [address] [id number] [address] [place] [address], [place] [address] Feb, [facility] [address] [id number] [address] [place] [address], [place] [address] Feb, [facility] [address] [id number] [address] [place] [address], [place] [address] Feb, [facility] [address] [id number] [address] [place] [address], [place] [address] Feb, [facility] [address] [id number] [address] [place] [address], [place] [address] Feb, [facility] [address] [id number] [address] [place] [address], [place] [address] Feb, [facility] [address] [id number] [address] [place] [address], [place] [address] Feb, [facility] [address] [id number] [address] [place] [address], [place] [address] Feb, [facility] [address] [id number] [address] [place] [address], [place] [address] Jan, [facility] [address] [id number] [address] [place] [address], [place] [address] Jan, [facility] [address] [id number] [address] [place] [address], [place] [address] Jan, [facility] [address] [id number] [address] [place] [address], [place] [address] Jan, [facility] [address] [id number] [address] [place] [address], [place] [address] Jan, [facility] [address] [id number] [address] [place] [address], [place] [address] Jan, [facility] [address] [id number] [address] [place] [address], [place] [address] Jan, [facility] [address] [id number] [address] [place] [address] Jan, [facility] [address] [id number] [address] [place] [address] 16 Jan, 2014 [facility] [address] [id number] [address] [place] [address] Jan, [facility] [address] [id number] [address] [place] [address], [place] [address] Jan, [facility] [address] [id number] [address] [place] [address], [place] [address] Dec, [facility] [address] [id number] [address] [place] [address], [place] [address] Dec, [facility] [address] [id number] [address] [place] [address], [place] [address] 19 Dec, 2013 [facility] [address] [id number] [address] [place] [address], [place] [address] 19 Dec, 2013 [facility] [address] [id number] [address] [place] [address], [place] [address] 18 Dec, 2013 [facility] [address] [id number] [address] [place] [address], [place] [address] 18 Dec, 2013 [facility] [address] [id number] [address] [place] [address], [place] [address] Dec, 2013 [facility] [address] [id number] [address] [place] [address], [place] [address] Dec, [facility] [address] [id number] [address] [place] [address], [place] [address] Nov, [facility] [address] [id number] [address] [place] [address], [place] [address] Nov, [facility] [address] [id number] [address] [place] [address], [place] [address] Nov, [facility] [address] [id number] [address] [place] [address], [place] [address] Nov, [facility] [address] [id number] [address] [place] [address], [place] [address] Nov, [facility] [address] [id number] [address] [place] [address], [place] [address] Nov, [facility] [address] [id number] [address] [place] [address], [place] [address] Nov, [facility] [address] [id number] [address] [place] [address], [place] [address] Nov, [facility] [address] [id number] [address] [place] [address], [place] [address] Oct, [facility] [address] [id number] [address] [place] [address], [place] [address] Oct, [facility] [address] [id number] [address] [place] [address], [place] [address] Oct, [facility] [address] [id number] [address] [place] [address], [place] [address] Oct, [facility] [address] [id number] [address] [place] [address], [place] [address] Sep, [facility] [address] [id number] [address] [place] [address], [place] [address] Sep, [facility] [address] [id number] [address] [place] [address], [place] [address] Sep, [facility] [address] [id number] [address] [place] [address], [place] [address] Sep, [facility] [address] [id number] [address] [place] [address], [place] [address] Sep, [facility] [address] [id number] [address] [place] [address], [place] [address] Sep, [facility] [address] [id number] [address] [place] [address], [place] [address] Sep, [facility] [address] [id number] [address] [place] [address], [place] [address] Sep, [facility] [address] [id number] [address] [place] [address], [place] [address] August, [facility] [address] [id number] [address] [place] [address], [place] [address] August, [facility] [address] [id number] [address] [place] [address], [place] [address] August, [facility] [address] [id number] [address] [place] [address], [place] [address] August, [facility] [address] [id number] [address] [place] [address], [place] [address] August, [facility] [address] [id number] [address] [place] [address], [place] [address] August, [facility] [address] [id number] [address] [place] [address], [place] [address] August, [facility] [address] [id number] [address] [place] [address], [place] [address] August, [facility] [address] [id number] [address] [place] [address], [place] [address] August, [facility] [address] [id number] [address] [place] [address], [place] [address] August, [facility] [address] [id number] [address] [place] [address], [place] [address] Jul, [facility] [address] [id number] [address] [place] [address], [place] [address] Jul, [facility] [address] [id number] [address] [place] [address], [place] [address] Jul, [facility] [address] [id number] [address] [place] [address], [place] [address] Jul, [facility] [address] [id number] [address] [place] [address], [place] [address] Jul, [facility] [address] [id number] [address] [place] [address], [place] [address] Jul, [facility] [address] [id number] [address] [place] [address], [place] [address] Jul, [facility] [address] [id number] [address] [place] [address], [place] [address] Jul, [facility] [address] [id number] [address] [place] [address], [place] [address] Jun, [facility] [address] [id number] [address] [place] [address], [place] [address] Jun, [facility] [address] [id number] [address] [place] [address], [place] [address] Jun, [facility] [address] [id number] [address] [place] [address], [place] [address] Jun, [facility] [address] [id number] [address] [place] [address], [place] [address] Jun, [facility] [address] [id number] [address] [place] [address], [place] [address] Jun, [facility] [address] [id number] [address] [place] [address], [place] [address] May, [facility] [address] [id number] [address] [place] [address], [place] [address] May, [facility] [address] [id number] [address] [place] [address], [place] [address] May, [facility] [address] [id number] [address] [place] [address], [place] [address] May, [facility] [address] [id number] [address] [place] [address], [place] [address] May, [facility] [address] [id number] [address] [place] [address], [place] [address] May, [facility] [address] [id number] [address] [place] [address], [place] [address] May, [facility] [address] [id number] [address] [place] [address], [place] [address] Apr, [facility] [address] [id number] [address] [place] [address], [place] [address] Apr, [facility] [address] [id number] [address] [place] [address], [place] [address] Apr, [facility] [address] [id number] [address] [place] [address], [place] [address] Apr, [facility] [address] [id number] [address] [place] [address], [place] [address] Apr, [facility] [address] [id number] [address] [place] [address], [place] [address] Apr, [facility] [address] [id number] [address] [place] [address], [place] [address] Mar, [facility] [address] [id number] [address] [place] [address], [place] [address] Mar, [facility] [address] [id number] [address] [place] [address], [place] [address] Mar, [facility] [address] [id number] [address] [place] [address], [place] [address] Mar, [facility] [address] [id number] [address] [place] [address], [place] [address] Mar, [facility] [address] [id number] [address] [place] [address], [place] [address] Mar, [facility] [address] [id number] [address] [place] [address], [place] [address] 16 Mar, 2013 [facility] [address] [id number] [address] [place] [address], [place] [address] 16 Mar, 2013 [facility] [address] [id number] [address] [place] [address], [place] [address] Mar, [facility] [address] [id number] [address] [place] [address], [place] [address] Mar, [facility] [address] [id number] [address] [place] [address], [place] [address] Feb, [facility] [address] [id number] [address] [place] [address], [place] [address] Feb, [facility] [address] [id number] [address] [place] [address], [place] [address] Feb, [facility] [address] [id number] [address] [place] [address], [place] [address] Feb, [facility] [address] [id number] [address] [place] [address], [place] [address] 14 Feb, 2013 [facility] [address] [id number] [address] [place] [address], [place] [address] 14 Feb, 2013 [facility] [address] [id number] [address] [place] [address], [place] [address] Feb, [facility] [address] [id number] [address] [place] [address], [place] [address] Feb, [facility] [address] [id number] [address] [place] [address], [place] [address] 08 Feb, 2013 [facility] [address] [id number] [address] [place] [address], [place] [address] Feb, [facility] [address] [id number] [address] [place] [address], [place] [address] Jan, [facility] [address] [id number] [address] [place] [address], [place] [address] Jan, [facility] [address] [id number] [address] [place] [address], [place] [address] Jan, [facility] [address] [id number] [address] [place] [address], [place] [address] Jan, [facility] [address] [id number] [address] [place] [address], [place] [address] Jan, [facility] [address] [id number] [address] [place] [address], [place] [address] Jan, [facility] [address] [id number] [address] [place] [address], [place] [address] 17 Jan, 2013 [facility] [address] [id number] [address] [place] [address], [place] [address] Jan, [facility] [address] [id number] [address] [place] [address], [place] [address] Jan, [facility] [address] [id number] [address] [place] [address], [place] [address] 25 Dec, 2012 [facility] [address] [id number] [address] [place] [address], [place] [address] Dec, [facility] [address] [id number] [address] [place] [address], [place] [address] Dec, [facility] [address] [id number] [address] [place] [address], [place] [address] Dec, [facility] [address] [id number] [address] [place] [address], [place] [address] Nov, [facility] [address] [id number] [address] [place] [address], [place] [address] Nov, [facility] [address] [id number] [address] [place] [address], [place] [address] Nov, [facility] [address] [id number] [address] [place] [address], [place] [address] Nov, [facility] [address] [id number] [address] [place] [address], [place] [address] Nov, [facility] [address] [id number] [address] [place] [address], [place] [address] Nov, [facility] [address] [id number] [address] [place] [address], [place] [address] Oct, [facility] [address] [id number] [address] [place] [address], [place] [address] Oct, [facility] [address] [id number] [address] [place] [address], [place] [address] Oct, [facility] [address] [id number] [address] [place] [address], [place] [address] Oct, [facility] [address] [id number] [address] [place] [address], [place] [address] Sep, [facility] [address] [id number] [address] [place] [address], [place] [address] Sep, [facility] [address] [id number] [address] [place] [address], [place] [address] Sep, [facility] [address] [id number] [address] [place] [address], [place] [address] 14 Sep, 2012 [facility] [address] [id number] [address] [place] [address], [place] [address] 10 Sep, 2012 [facility] [address] [id number] [address] [place] [address], [place] [address] 17 Aug, 2012 [facility] [address] [id number] [address] [place] [address], [place] [address] August, [facility] [address] [id number] [address] [place] [address], [place] [address] 19 Jul, 2012 [facility] [address] [id number] [address] [place] [address], [place] [address] 19 Jul, 2012 [facility] [address] [id number] [address] [place] [address], [place] [address] 15 Jul, 2012 [facility] [address] [id number] [address] [place] [address], [place] [address] Jul, [facility] [address] [id number] [address] [place] [address], [place] [address] 08 Jul, 2012 [facility] [address] [id number] [address] [place] [address], [place] [address] Jun, [facility] [address] [id number] [address] [place] [address], [place] [address] Jun, [facility] [address] [id number] [address] [place] [address], [place] [address] 15 Jun, 2012 [facility] [address] [id number] [address] [place] [address], [place] [address] Jun, [facility] [address] [id number] [address] [place] [address], [place] [address] Jun, [facility] [address] [id number] [address] [place] [address], [place] [address] 28 May, 2012 [facility] [address] [id number] [address] [place] [address], [place] [address] May, [facility] [address] [id number] [address] [place] [address], [place] [address] May, [facility] [address] [id number] [address] [place] [address], [place] [address] May, [facility] [address] [id number] [address] [place] [address], [place] [address] May, [facility] [address] [id number] [address] [place] [address], [place] [address] May, [facility] [address] [id number] [address] [place] [address], [place] [address] May, [facility] [address] [id number] [address] [place] [address], [place] [address] May, [facility] [facility] [address] [id number] [address] [place] [address], [place] [address] May, [facility] [address] [id number] [address] [place] [address], [place] [address] Apr, [facility] [address] [id number] [address] [place] [address], [place] [address] Apr, [facility] [address] [id number] [address] [place] [address], [place] [address] Apr, [facility] [address] [id number] [address] [place] [address], [place] [address] Apr, [facility] [address] [id number] [address] [place] [address], [place] [address] Apr, [facility] [address] [id number] [address] [place] [address], [place] [address] Mar, [facility] [address] [id number] [address] [place] [address], [place] [address] Mar, [facility] [address] [id number] [address] [place] [address], [place] [address] Mar, [facility] [address] [id number] [address] [place] [address] [place] [address] 20 Mar, 2012 [facility] [address] [id number] [address] [place] [address], [place] [address] 19 Mar, 2012 [facility] [address] [id number] [address] [place] [address], [place] [address] 19 Mar, 2012 [facility] [address] [id number] [address] [place] [address], [place] [address] 17 Mar, 2012 [facility] [address] [id number] [address] [place] [address], [place] [address] 17 Mar, 2012 [facility] [address] [id number] [address] [place] [address], [place] [address] 07 Mar, 2012 [facility] [address] [id number] [address] [place] [address], [place] [address] 07 Mar, 2012 [facility] [address] [id number] [address] [place] [address], [place] [address] 30 Feb, 2012 [facility] [address] [id number] [address] [place] [address], [place] [address] 30 Feb, 2012 [facility] [address] [id number] [address] [place] [address], [place] [address] 29 Feb, 2012 [facility] [address] [id number] [address] [place] [address], [place] [address] 29 Feb, 2012 [facility] [address] [id number] [address] [place] [address], [place] [address] Feb, [facility] [address] [id number] [address] [place] [address], [place] [address] 23 Feb, 2012 [facility] [address] [id number] [address] [place] [address], [place] [address] 20 Feb, 2012 [facility] [address] [id number] [address] [place] [address], [place] [address] 20 Feb, 2012 [facility] [address] [id number] [address] [place] [address], [place] [address] 16 Feb, 2012 [facility] [address] [id number] [address] [place] [address], [place] [address] 16 Feb, 2012 [facility] [address] [id number] [address] [place] [address], [place] [address] 13 Feb, 2012 [facility] [address] [id number] [address] [place] [address], [place] [address] 13 Feb, 2012 [facility] [address] [id number] [address] [place] [address], [place] [address] Feb, [facility] [address] [id number] [address] [place] [address], [place] [address] Feb, [facility] [address] [id number] [address] [place] [address], [place] [address] Feb, [facility] [address] [id number] [address] [place] [address], [place] [address] Feb, [facility] [address] [id number] [address] [place] [address], [place] [address] Feb, [facility] [address] [id number] [address] [place] [address], [place] [address] Feb, [facility] [address] [id number] [address] [place] [address], [place] [address] Jan, [facility] [address] [id number] [address] [place] [address], [place] [address] Jan, [facility] [address] [id number] [address] [place] [address], [place] [address] 31 Jan, 2012 [facility] [address] [id number] [address] [place] [address], [place] [address] 31 Jan, 2012 [facility] [address] [id number] [address] [place] [address], [place] [address] Jan, [facility] [address] [id number] [address] [place] [address], [place] [address] 24 Jan, 2012 [facility] [address] [id number] [address] [place] [address], [place] [address] Jan, [facility] [address] [id number] [address] [place] [address], [place] [address] Jan, [facility] [address] [id number] [address] [place] [address], [place] [address] Jan, [facility] [address] [id number] [address] [place] [address], [place] [address] Jan, [facility] [address] [id number] [address] [place] [address], [place] [address] 24 Dec, 2011 [facility] [address] [id number] [address] [place] [address], [place] [address] Dec, [facility] [address] [id number] [address] [place] [address], [place] [address] Dec, [facility] [address] [id number] [address] [place] [address], [place] [address] Dec, [facility] [address] [id number] [address] [place] [address], [place] [address] Nov, [facility] [address] [id number] [address] [place] [address], [place] [address] Nov, [facility] [address] [id number] [address] [place] [address], [place] [address] Nov, [facility] [address] [id number] [address] [place] [address], [place] [address] Nov, [facility] [address] [id number] [address] [place] [address], [place] [address] Nov, [facility] [address] [id number] [address] [place] [address], [place] [address] Nov, [facility] [address] [id number] [address] [place] [address], [place] [address] Oct, [facility] [address] [id number] [address] [place] [address], [place] [address] Oct, [facility] [address] [id number] [address] [place] [address], [place] [address] 06 Oct, 2011 [facility] [address] [id number] [address] [place] [address], [place] [address] Oct, [facility] [address] [id number] [address] [place] [address], [place] [address] Oct, [facility] [address] [id number] [address] [place] [address], [place] [address] Sep, [facility] [address] [id number] [address] [place] [address], [place] [address] Sep, [facility] [address] [id number] [address] [place] [address], [place] [address] Sep, [facility] [address] [id number] [address] [place] [address], [place] [address] Sep, [facility] [address] [id number] [address] [place] [address], [place] [address] Sep, [facility] [address] [id number] [address] [place] [address], [place] [address] August, [facility] [address] [id number] [address] [place] [address], [place] [address] August, [facility] [address] [id number] [address] [place] [address], [place] [address] August, [facility] [address] [id number] [address] [place] [address], [place] [address] August, [facility] [address] [id number] [address] [place] [address], [place] [address] Jul, [facility] [address] [id number] [address] [place] [address], [place] [address] 24 Jul, 2011 [facility] [address] [id number] [address] [place] [address], [place] [address] Jul, [facility] [address] [id number] [address] [place] [address], [place] [address] 18 Jul, 2011 [facility] [address] [id number] [address] [place] [address], [place] [address] 18 Jul, 2011 [facility] [address] [id number] [address] [place] [address], [place] [address] Jul, [facility] [address] [id number] [address] [place] [address], [place] [address] Jul, [facility] [address] [id number] [address] [place] [address], [place] [address] 10 Jul, 2011 [facility] [address] [id number] [address] [place] [address], [place] [address] Jul, [facility] [address] [id number] [address] [place] [address], [place] [address] Jul, [facility] [address] [id number] [address] [place] [address], [place] [address] 05 Jul, 2011 [facility] [address] [id number] [address] [place] [address], [place] [address] Jul, [facility] [address] [id number] [address] [place] [address], [place] [address] Jul, [facility] [address] [id number] [address] [place] [address], [place] [address] Jul, [facility] [address] [id number] [address] [place] [address], [place] [address] Jun, [facility] [address] [id number] [address] [place] [address], [place] [address] Jun, [facility] [address] [id number] [address] [place] [address], [place] [address] Jun, [facility] [address] [id number] [address] [place] [address], [place] [address] 16 Jun, 2011 [facility] [address] [id number] [address] [place] [address], [place] [address] May, [facility] [address] [id number] [address] [place] [address], [place] [address] 16 May, 2011 [facility] [address] [id number] [address] [place] [address], [place] [address] May, [facility] [address] [id number] [address] [place] [address], [place] [address] Apr, [facility] [address] [id number] [address] [place] [address], [place] [address] Apr, [facility] [address] [id number] [address] [place] [address], [place] [address] 13 Apr, 2011 [facility] [address] [id number] [address] [place] [address], [place] [address] Apr, [facility] [address] [id number] [address] [place] [address], [place] [address] Apr, [facility] [address] [id number] [address] [place] [address], [place] [address] Mar, [facility] [address] [id number] [address] [place] [address], [place] [address] Mar, [facility] [address] [id number] [address] [place] [address], [place] [address] Mar, [facility] [address] [id number] [address] [place] [address], [place] [address] Mar, [facility] [address] [id number] [address] [place] [address], [place] [address] Mar, [facility] [address] [id number] [address] [place] [address], [place] [address] Mar, [facility] [address] [id number] [address] [place] [address], [place] [address] Mar, [facility] [address] [id number] [address] [place] [address], [place] [address] Feb, [facility] [address] [id number] [address] [place] [address], [place] [address] Feb, [facility] [address] [id number] [address] [place] [address], [place] [address] 22 Feb, 2011 [facility] [address] [id number] [address] [place] [address], [place] [address] 22 Feb, 2011 [facility] [address] [id number] [address] [place] [address], [place] [address] 16 Feb, 2011 [facility] [address] [id number] [address] [place] [address], [place] [address] 14 Feb, 2011 [facility] [address] [id number] [address] [place] [address], [place] [address] 10 Feb, 2011 [facility] [address] [id number] [address] [place] [address], [place] [address] 31 Jan, 2011 [facility] [address] [id number] [address] [place] [address], [place] [address] 31 Jan, 2011 [facility] [address] [id number] [address] [place] [address], [place] [address] 31 Jan, 2011 [facility] [address] [id number] [address] [place] [address], [place] [address] 18 Jan, 2011 [facility] [address] [id number] [address] [place] [address], [place] [address] 17 Jan, 2011 [facility] [address] [id number] [address] [place] [address], [place] [address] 17 Jan, 2011 [facility] [address] [id number] [address] [place] [address], [place] [address] 17 Jun, 2010 [facility] [address] [id number] [address] [place] [address], [place] [address] 30 Mar, 2010 [facility] [address] [id number] [address] [place] [address], [place] [address] 20 Mar, 2010 [facility] [address] [id number] [address] [place] [address], [place] [address] 14 Mar, 2010 [facility] [address] [id number] [address] [place] [address] [address] 14 Mar, 2010 [facility] [address] [id number] [address] [place] [address], [place] [address] 13 Mar, 2010 [facility] [address] [id number] [address] [place] [address], [place] [address] 07 Mar, 2010 [facility] [address] [id number] [address] [place] [address], [place] [address] 02 Mar, 2010 [facility] [address] [id number] [address] [place] [address], [place] [address] Mar, [facility] [address] [id number] [address] [place] [address], [place] [address] 30 Feb, 2010 [facility] [address] [id number] [address] [place] [address], [place] [address] 29 Feb, 2010 [facility] [address] [id number] [address] [place] [address], [place] [address] 17 Feb, 2010 [facility] [address] [id number] [address] [place] [address], [place] [address] 17 Feb, 2010 [facility] [address] [id number] [address] [place] [address], [place] [address] 16 Feb, 2010 [facility] [address] [id number] [address] [place] [address], [place] [address] 08 Feb, 2010 [facility] [address] [id number] [address] [place] [address] Feb, [facility] [address] [id number] [address] [place] [address] Feb, [facility] [address] [id number] [address] [place] [address], [place] [address] Jan, [facility] [address] [id number] [address] [place] [address] Jan, [facility] [address] [id number] [address] [place] [address] Jan, [facility] [address] [id number] [address] [place] [address] 18 Jan, 2010 [facility] [address] [id number] [address] [place] [id number] 29 Mar, 2009 [facility] [address] [id number] [address] [place] [id number] Mar, [facility] [address] [id number] [address] [place] [id number] Mar, [facility] [address] [id number] [address] [place] [id number] Mar, [facility] [address] [id number] [address] [place] [id number] Mar, [facility] [address] [id number] [address] [place] [id number] Mar, [facility] [address] [id number] [address] [place] [id number] Feb, [facility] [address] [id number] [address] [place] [id number] Feb, [facility] [address] [id number] [address] [place] [id number] Jan, [facility] [address] [id number] [address] [place] [id number] Sep, [facility] [address] [id number] [address] [place] [id number] May, IMMUNIZATIONS No Known Immunizations SOCIAL HISTORY [...] surgery Hospitalization History [facility] in [place]- Spontane ous Pneumothorax Hospitalization History [facility]- Colon resection Hospitalization History [facility] - diarrhea/ couldnt urin ate nov 2017 Hospitalization History pain /hip to foot right side 10/16/19 19
--- OUTSIDE RECORDS SUMMARY | 2019-08-28 09:15 | XMS REPORT ---
Author Author Dixon DE LEON [facility] Address [address] [place] [address] Care Team Providers Care Top Frame Fitter Name Role Phone STEPHAN DE LEON Unavailable PROBLEMS Type Condition ICD9-CM Code SIY63-PG Code Onset Dates Condition S tatus SNOMED Code Problem Insomnia G47.00 Active 786158336 Problem Anxiety F41.9 Active 48392859 Problem HTN (hypertension) I10 Active 3 9451137 Problem Hyperlipidemia E78.5 Active 94359 004 Problem Thoracic back pain, unspecif ied back pain laterality, unspecified chronicity M54.6 Active 714179159 Problem Vitamin D deficiency E55.9 Active 55433847 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 33226720 Problem Chronic pain G89.29 Active 7258603 1 Problem Schizophrenia, unspecified type F20.9 Active 51820620 Problem Constipation K59.00 Active 3514337 8 Problem Environmental allergies Z91.09 Active 889487841 Problem Primary insomnia F51.01 Active 397 2004 Problem Chronic kidney disease, stage III (moderate) N18.3 Active 645074177 Problem Vision loss H54.7 Active 90017900 1 ALLERGIES No Information ENCOUNTERS Encounter Location Date Diagnosis [facility] [address] [facility] [id number] [address] [place] [address] Oct, Schizophrenia, unspecified t ype F20.9 and Acute kidney injury N17.9 [facility] [address] [facility] [id number] [address] [place] [address] Oct, [facility] [address] [facility] [id number] [address] [place] [address] Oct, [facility] [address] [facility] [id number] [address] [place] [address] Oct, Thoracic back pain, unspecif ied back pain laterality, unspecified chronicity M54.6 [facility] [address] [id number] [address] [place] [address] Oct, [facility] [address] [id number] [address] [place] [address] Oct, [facility] [address] [id number] [address] [place] [address] Sep, Anxiety F41.9 [facility] [address] [id number] [address] [place] [address] Sep, [facility] [address] [id number] [address] [place] [address] Sep, Thoracic back pain, unspecif ied back pain laterality, unspecified chronicity M54.6 [facility] [address] [id number] [address] [place] [address] Sep, [facility] [address] [id number] [address] [place] [address] Sep, [facility] [address] [id number] [address] [place] [address] Sep, [facility] [address] [id number] [address] [place] [address] Sep, [facility] [address] [id number] [address] [place] [address] Sep, [facility] [address] [id number] [address] [place] [address] Sep, [facility] [address] [facility] [id number] [address] [place] [address] 10 Sep, 2018 Chronic pain G89.29 ; Chroni c kidney disease, stage III (moderate) N18.3 ; Hyperlipidemia E78.5 and Insomnia G47.00 [facility] [address] [id number] [address] [place] [address] Sep, Thoracic back pain, unspecif ied back pain laterality, unspecified chronicity M54.6 [facility] [address] [id number] [address] [place] [address] August, Anxiety F41.9 [facility] [address] [id number] [address] [place] [address] August, Thoracic back pain, unspecif ied back pain laterality, unspecified chronicity M54.6 and Anxiety F41.9 [facility] [address] [id number] [address] [place] [address] August, 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 [facility] [address] [id number] [address] [place] [address] August, 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 [facility] [address] [id number] [address] [place] [address] August, [facility] [address] [id number] [address] [place] [address] August, [facility] [address] [id number] [address] [place] [address] August, Thoracic back pain, unspecif ied back pain laterality, unspecified chronicity M54.6 [facility] [address] [id number] [address] [place] [address] August, [facility] [address] [id number] [address] [place] [address] August, Anxiety F41.9 and Thoracic b ack pain, unspecified back pain laterality, unspecified chronicity M54.6 [facility] [address] [id number] [address] [place] [address] Jul, [facility] [address] [id number] [address] [place] [address] Jul, Thoracic back pain, unspecif ied back pain laterality, unspecified chronicity M54.6 [facility] [address] [id number] [address] [place] [address] Jun, Anxiety F41.9 and Thoracic b ack pain, unspecified back pain laterality, unspecified chronicity M54.6 [facility] [address] [id number] [address] [place] [address] 08 Jun, 2018 Anxiety F41.9 and Thoracic b ack pain, unspecified back pain laterality, unspecified chronicity M54.6 [facility] [address] [id number] [address] [place] [address] Jun, Thoracic back pain, unspecif ied back pain laterality, unspecified chronicity M54.6 [facility] [address] [id number] [address] [place] [address] Jun, Anxiety F41.9 and Thoracic b ack pain, unspecified back pain laterality, unspecified chronicity M54.6 [place] [id number] [id number] [address] [place] [address] May, [facility] [address] [id number] [address] [place] [address] May, [facility] [address] [id number] [address] [place] [address] 08 May, 2018 [facility] [address] [id number] [address] [place] [address] 06 May, 2018 Anxiety F41.9 and Encounter for medication monitoring Z51.81 [facility] [address] [id number] [address] [place] [address] May, Anxiety F41.9 and Thoracic b ack pain, unspecified back pain laterality, unspecified chronicity M54.6 [facility] [address] [id number] [address] [place] [address] Apr, Hyperlipidemia 272.4 [facility] [address] [id number] [address] [place] [address] Apr, Chronic pain G89.29 ; Anxiet y F41.9 ; Cervical radiculopathy M54.12 and Vision loss H54.7 [facility] [address] [id number] [address] [place] [address] Apr, [facility] [address] [id number] [address] [place] [address] Apr, Anxiety F41.9 and Thoracic b ack pain, unspecified back pain laterality, unspecified chronicity M54.6 [facility] [address] [id number] [address] [place] [address] Mar, [facility] [address] [id number] [address] [place] [address] Mar, Anxiety F41.9 and Thoracic b ack pain, unspecified back pain laterality, unspecified chronicity M54.6 [facility] [address] [id number] [address] [place] [address] Feb, Anxiety F41.9 and Thoracic b ack pain, unspecified back pain laterality, unspecified chronicity M54.6 [facility] [address] [id number] [address] [place] [address] 07 Feb, 2018 Thoracic back pain, unspecif ied back pain laterality, unspecified chronicity M54.6 [facility] [address] [id number] [address] [place] [address] Jan, [facility] [address] [id number] [address] [place] [address] Jan, Anxiety F41.9 and Thoracic b ack pain, unspecified back pain laterality, unspecified chronicity M54.6 [facility] [address] [id number] [address] [place] [address] Dec, Diarrhea of presumed infecti ous origin R19.7 [facility] [address] [id number] [address] [place] [address] 19 Dec, 2017 Diarrhea of presumed infecti ous origin R19.7 [facility] [address] [id number] [address] [place] [address] 18 Dec, 2017 Thoracic back pain, unspecif ied back pain laterality, unspecified chronicity M54.6 [place] [address] [facility] [id number] [address] [place] [address] 17 Dec, 2017 [place] [address] [facility] [id number] [address] [place] [address] Dec, Anxiety F41.9 and Thoracic b ack pain, unspecified back pain laterality, unspecified chronicity M54.6 [place] [address] [facility] [id number] [address] [place] [address] Dec, Diarrhea of presumed infecti ous origin R19.7 [place] [address] [facility] [id number] [address] [place] [address] Dec, [place] [address] [facility] [id number] [address] [place] [address] Dec, Anxiety F41.9 and Thoracic b ack pain, unspecified back pain laterality, unspecified chronicity M54.6 [place] [address] [facility] [id number] [address] [place] [address] Dec, Anxiety F41.9 and Thoracic b ack pain, unspecified back pain laterality, unspecified chronicity M54.6 [facility] [address] [place] [id number] Dec, Diarrhea of presumed infectious origin R 19.7 ; Anxiety F41.9 ; Thoracic back pain, unspecified back pain laterality, unspecified chronicity M54.6 and HTN (hypertension) I10 [place] [address] [facility] [id number] [address] [place] [address] Dec, Anxiety F41.9 [facility] [address] [place] [id number] Dec, Anxiety F41.9 ; Diarrhea of presumed inf ectious origin R19.7 ; Generalized abdominal pain R10.84 and Localized edema R60.0 [place] [address] [facility] [id number] [address] [place] [address] Nov, [facility] [address] [place] [id number] Nov, Anxiety F41.9 ; Urinary retention R33.9 ; Diarrhea of presumed infectious origin R19.7 ; Weakness R53.1 ; Acute kidney failure, unspecified N17.9 ; Chronic kidney disease, stage III (moderate) N18.3 and Thoracic back pain, unspecified back pain laterality, unspecified chronicity M54.6 [place] [address] [address] Oct, Thoracic back pain, unspecif ied back pain laterality, unspecified chronicity M54.6 and Anxiety F41.9 [place] [address] [address] Sep, Thoracic back pain, unspecif ied back pain laterality, unspecified chronicity M54.6 and Anxiety F41.9 [place] [address] [address] Sep, Thoracic back pain, unspecif ied back pain laterality, unspecified chronicity M54.6 ; Anxiety F41.9 and Encounter for medication monitoring Z51.81 [place] [address] [address] August, [place] [address] [address] August, Thoracic back pain, unspecif ied back pain laterality, unspecified chronicity M54.6 and Anxiety F41.9 [place] [address] [address] August, Hyperlipidemia E78.5 and HTN (hypertension) I10 [place] [address] [address] August, [place] [address] [place] [id number] [place] [address] August, Medicare welcome exam Z00.00 ; Chronic kidney failure N18.9 ; Anxiety F41.9 ; Chronic pain G89.29 ; Insomnia G47.00 ; Hyperlipidemia E78.5 ; HTN (hypertension) I10 and Thoracic back pain, unspecified back pain laterality, unspecified chronicity M54.6 [facility] [address] [address] Jul, [facility] [address] [place] [id number] [address] [place] [address] Jul, [facility] [address] [address] Jul, [place] [address] [address] Jul, Anxiety F41.9 [place] [address] [address] Jul, Thoracic back pain, unspecif ied back pain laterality, unspecified chronicity M54.6 and Anxiety F41.9 [place] [address] [place] [id number] [address] [place] [address] Jun, Thoracic back pain, unspecif ied back pain laterality, unspecified chronicity M54.6 and Anxiety F41.9 [place] [address] [place] [id number] [address] [place] [address] May, Thoracic back pain, unspecif ied back pain laterality, unspecified chronicity M54.6 and Anxiety F41.9 [place] [address] [place] [id number] [address] [place] [address] Apr, Thoracic back pain, unspecif ied back pain laterality, unspecified chronicity M54.6 and Anxiety F41.9 [place] [address] [place] [id number] [address] [place] [address] Mar, [place] [address] [address] Mar, Thoracic back pain, unspecif ied back pain laterality, unspecified chronicity M54.6 and Anxiety F41.9 [place] [address] [place] [id number] [address] [place] [address] Mar, Thoracic back pain, unspecif ied back pain laterality, unspecified chronicity M54.6 ; HTN (hypertension) I10 ; Hyperlipidemia E78.5 and Anxiety F41.9 [place] [address] [facility] [id number] [address] [place] [address] Feb, Thoracic back pain, unspecif ied back pain laterality, unspecified chronicity M54.6 and Anxiety F41.9 [place] [address] [place] [id number] [address] [place] [address] Nov, [place] [address] [place] [id number] [place] [address] Oct, [place] [address] [place] [id number] [address] [place] [address] Oct, Thoracic back pain, unspecif ied back pain laterality, unspecified chronicity M54.6 [place] [address] [place] [id number] [address] [place] [address] Oct, HTN (hypertension) I10 ; Con stipation K59.00 ; Hyperlipidemia E78.5 ; Thoracic back pain, unspecified back pain laterality, unspecified chronicity M54.6 ; Chronic pain G89.29 ; Anxiety F41.9 ; Chronic kidney failure N18.9 ; Environmental allergies Z91.09 ; Vitamin D deficiency E55.9 and Primary insomnia F51.01 [place] [address] [facility] [id number] [address] [place] [address] Sep, Anxiety F41.9 [place] [address] [facility] [id number] [address] [place] [address] Sep, [place] [address] [place] [id number] [address] [place] [address] August, Anxiety F41.9 [place] [address] [place] [id number] [address] [place] [address] August, [place] [address] [place] [address] [place] [address] Jul, Anxiety F41.9 [facility] [address] [facility] [id number] [address] [place] [address] Jul, [facility] [address] [facility] [id number] [address] [place] [address] Jun, Anxiety F41.9 [facility] [address] [facility] [id number] [address] [place] [address] Jun, [facility] [address] [facility] [id number] [address] [place] [address] May, [facility] [address] [place] [id number] [address] [place] [address] May, [facility] [address] [place] [id number] [address] [place] [address] May, [facility] [address] [place] [id number] [address] [place] [address] Apr, [facility] [address] [facility] [id number] [address] [place] [address] Apr, [facility] [address] [place] [id number] [address] [place] [address] Apr, Anxiety F41.9 [facility] [address] [place] [id number] [address] [place] [address] Apr, Anxiety F41.9 [facility] [address] [place] [id number] [address] [place] [address] Apr, [facility] [address] [facility] [id number] [address] [place] [address] Mar, HTN (hypertension) I10 ; Phillip mor R25.1 ; Hypercholesterolemia E78.0 ; Constipation K59.00 ; Chronic pain G89.29 ; Hyperlipidemia E78.5 ; Insomnia G47.00 ; Anxiety F41.9 and Thoracic back pain, unspecified back pain laterality, unspecified chronicity M54.6 [facility] [address] [id number] [address] [place] [address] Mar, Tremor R25.1 ; HTN (hyperten stas) I10 ; Hypercholesterolemia E78.0 ; Constipation K59.00 ; Chronic pain G89.29 ; Hyperlipidemia E78.5 ; Insomnia G47.00 ; Anxiety F41.9 and Thoracic back pain, unspecified back pain laterality, unspecified chronicity M54.6 [facility] [address] [id number] [address] [place] [address] Mar, [facility] [address] [id number] [address] [place] [address] Mar, [facility] [address] [facility] [id number] [address] [place] [address] Feb, [facility] [address] [facility] [id number] [address] [place] [address] Jan, [facility] [address] [facility] [id number] [address] [place] [address] Jan, [facility] [address] [facility] [id number] [address] [place] [address] Dec, [facility] [address] [facility] [id number] [address] [place] [address] Nov, [facility] [address] [facility] [id number] [address] [place] [address] Nov, [facility] [address] [facility] [id number] [address] [place] [address] Oct, Anxiety F41.9 [facility] [address] [id number] [address] [place] [address] Oct, Chronic pain G89.29 [facility] [address] [facility] [id number] [address] [place] [address] Sep, [facility] [address] [facility] [id number] [address] [place] [address] Sep, [facility] [address] [facility] [id number] [address] [place] [address] 17 Sep, 2015 [facility] [address] [facility] [id number] [address] [place] [address] Sep, [facility] [address] [facility] [id number] [address] [place] [address] Sep, Chronic pain syndrome G89.4 [facility] [address] [facility] [id number] [address] [place] [address] Sep, HTN (hypertension) I10 ; Chr onic pain G89.29 ; Hypercholesterolemia E78.0 ; Chronic kidney failure N18.9 ; Constipation, unspecified constipation type K59.00 ; Anxiety F41.9 and Thoracic back pain, unspecified back pain laterality, unspecified chronicity M54.6 [place] [address] [place] [id number] [address] [place] [address] August, Chronic pain syndrome G89.4 [place] [address] [place] [id number] [address] [place] [address] August, Chronic pain syndrome G89.4 [place] [address] [place] [id number] [address] [place] [phone] Jul, Anxiety disorder, unspecifie d F41.9 and Chronic pain syndrome G89.4 [place] [address] [place] [id number] [address] [place] [address] Jul, Insomnia, unspecified G47.00 and Chronic pain syndrome G89.4 [place] [address] [facility] [id number] [address] [place] [address] Jul, Allergic rhinitis J30.9 [facility] [address] [facility] [id number] [address] [place] [address] Jul, Constipation, unspecified K5 9.00 [facility] [address] [facility] [id number] [address] [place] [address] Jul, [facility] [address] [place] [id number] [address] [place] [address] Jun, [facility] [address] [id number] [address] [place] [address] Jun, [facility] [address] [id number] [address] [place] [address] Jun, [facility] [address] [facility] [id number] [address] [place] [address] Jun, [facility] [address] [facility] [id number] [address] [place] [address] Jun, [facility] [address] [facility] [id number] [address] [place] [address] Jun, [facility] [address] [facility] [id number] [address] [place] [address] May, [facility] [address] [facility] [id number] [address] [place] [address] May, [facility] [address] [facility] [id number] [address] [place] [address] May, Anxiety F41.9 ; Insomnia G47 .00 ; Hyperlipidemia E78.5 ; Chronic pain G89.29 ; HTN (hypertension) I10 ; Environmental allergies V15.09 and Constipation 564.00 [facility] [address] [facility] [id number] [address] [place] [address] Apr, [facility] [address] [facility] [id number] [address] [place] [address] Apr, [facility] [address] [facility] [id number] [address] [place] [address] Apr, [facility] [address] [facility] [id number] [address] [place] [address] Mar, [facility] [address] [facility] [id number] [address] [place] [address] Mar, [facility] [address] [facility] [id number] [address] [place] [address] Mar, [facility] [address] [address] Feb, [facility] [address] [address] Feb, [facility] [address] [address] Feb, [facility] [address] [place] [address] Jan, HTN (hypertension) I10 ; Con stipation K59.00 ; Chronic pain G89.29 ; Hyperlipidemia E78.5 ; Hypercholesterolemia E78.0 ; Insomnia G47.00 and Anxiety F41.[address] [id number] Jan, [address] [id number] Dec, [facility] [address] [id number] Nov, [address] [id number] Oct, Chronic kidney disease, unsp ecified 585.9 ; Chronic pain syndrome 338.4 ; Hyperlipidemia 272.4 and Essential hypertension 401.[address] [address] Oct, Chronic kidney disease 585.9 [facility] [address] [id number] Oct, [facility] [address] [place] [id number] Oct, Chronic kidney disease, unsp ecified 585.9 ; Hypercalcemia 275.42 ; Hyperlipidemia 272.4 ; Essential hypertension 401.9 ; Chronic pain syndrome 338.4 ; Insomnia 780.52 ; Constipation 564.00 ; Environmental allergies V15.09 and Anxiety 300.00 [facility] [address] [id number] [address] [place] [id number] 15 Oct, 2014 Chronic kidney disease 585.9 [facility] [address] [id number] [address] [place] [address] [id number] 15 Oct, 2014 [facility] [address] [id number] [address] [place] [id number] 14 Oct, 2014 Chronic kidney disease 585.9 and Hyperlipidemia 272.4 [facility] [address] [id number] [address] [place] [id number] 10 Oct, 2014 [facility] [address] [id number] [address] [place] [id number] Oct, [facility] [address] [id number] [address] [place] [id number] 18 Sep, 2014 [facility] [address] [id number] [address] [place] [id number] Sep, [facility] [address] [id number] [address] [place] [address] Sep, Chronic kidney disease 585.9 and Hyperlipidemia 272.4 [facility] [address] [id number] [address] [place] [id number] Sep, [facility] [address] [id number] [address] [place] [id number] August, [facility] [address] [id number] [address] [place] [address] August, [facility] [address] [id number] [address] [place] [id number] Jul, [facility] [address] [id number] [address] [place] [id number] Jul, [facility] [address] [id number] [address] [place] [id number] Jun, [facility] [address] [id number] [address] [place] [id number] Jun, [facility] [address] [id number] [address] [place] [address], [place] [address] Jun, [facility] [address] [id number] [address] [place] [address], [place] [address] Jun, [facility] [address] [id number] [address] [place] [address], [place] [address] Jun, [facility] [address] [id number] [address] [place] [address], [place] [address] Jun, [facility] [address] [id number] [address] [place] [address], [place] [address] Jun, [facility] [address] [id number] [address] [place] [address], [place] [address] Jun, [facility] [address] [id number] [address] [place] [address], [place] [address] May, [facility] [address] [id number] [address] [place] [address], [place] [address] May, [facility] [address] [id number] [address] [place] [address], [place] [address] May, [facility] [address] [id number] [address] [place] [address], [place] [address] May, [facility] [address] [id number] [address] [place] [address], [place] [address] Apr, [facility] [address] [id number] [address] [place] [id number] Apr, [facility] [address] [id number] [address] [place] [address], [place] [address] Apr, [facility] [address] [id number] [address] [place] [address], [place] [address] Apr, [facility] [address] [id number] [address] [place] [address] Apr, [facility] [address] [id number] [address] [place] [address], [place] [address] Apr, [facility] [address] [id number] [address] [place] [address], [place] [address] Apr, [facility] [address] [id number] [address] [place] [address], [place] [address] Apr, [facility] [address] [id number] [address] [place] [address], [place] [address] Apr, [facility] [address] [id number] [address] [place] [address], [place] [address] Apr, [facility] [address] [id number] [address] [place] [address], [place] [address] Apr, [facility] [address] [id number] [address] [place] [address], [place] [address] Mar, [facility] [address] [id number] [address] [place] [address], [place] [address] Mar, [facility] [address] [id number] [address] [place] [address], [place] [address] Feb, [facility] [address] [id number] [address] [place] [address], [place] [address] Feb, [facility] [address] [id number] [address] [place] [address], [place] [address] Feb, [facility] [address] [id number] [address] [place] [address], [place] [address] Feb, [facility] [address] [id number] [address] [place] [address], [place] [address] Feb, [facility] [address] [id number] [address] [place] [address], [place] [address] Feb, [facility] [address] [id number] [address] [place] [address], [place] [address] Feb, [facility] [address] [id number] [address] [place] [address], [place] [address] Feb, [facility] [address] [id number] [address] [place] [address], [place] [address] Feb, [facility] [address] [id number] [address] [place] [address], [place] [address] Feb, [facility] [address] [id number] [address] [place] [address], [place] [address] Jan, [facility] [address] [id number] [address] [place] [address], [place] [address] Jan, [facility] [address] [id number] [address] [place] [address], [place] [address] Jan, [facility] [address] [id number] [address] [place] [address], [place] [address] Jan, [facility] [address] [id number] [address] [place] [address], [place] [address] Jan, [facility] [address] [id number] [address] [place] [address], [place] [address] Jan, [facility] [address] [id number] [address] [place] [address], [place] [address] Jan, [facility] [address] [id number] [address] [place] [address] Jan, [facility] [address] [id number] [address] [place] [id number] 16 Jan, 2014 [facility] [address] [id number] [address] [place] [address] Jan, [facility] [address] [id number] [address] [place] [address], [place] [address] Jan, [facility] [address] [id number] [address] [place] [address], [place] [address] Dec, [facility] [address] [id number] [address] [place] [address], [place] [address] Dec, [facility] [address] [id number] [address] [place] [address], [place] [address] 19 Dec, 2013 [facility] [address] [id number] [address] [place] [address], [place] [address] 19 Dec, 2013 [facility] [address] [id number] [address] [place] [address], [place] [address] 18 Dec, 2013 [facility] [address] [id number] [address] [place] [address], [place] [address] 18 Dec, 2013 [facility] [address] [id number] [address] [place] [address], [place] [address] Dec, 2013 [facility] [address] [id number] [address] [place] [address], [place] [address] Dec, [facility] [address] [id number] [address] [place] [address], [place] [address] Nov, [facility] [address] [id number] [address] [place] [address], [place] [address] Nov, [facility] [address] [id number] [address] [place] [address], [place] [address] Nov, [facility] [address] [id number] [address] [place] [address], [place] [address] Nov, [facility] [address] [id number] [address] [place] [address], [place] [address] Nov, [facility] [address] [id number] [address] [place] [address], [place] [address] Nov, [facility] [address] [id number] [address] [place] [address], [place] [address] Nov, [facility] [address] [id number] [address] [place] [address], [place] [address] Nov, [facility] [address] [id number] [address] [place] [address], [place] [address] Oct, [facility] [address] [id number] [address] [place] [address], [place] [address] Oct, [facility] [address] [id number] [address] [place] [address], [place] [address] Oct, [facility] [address] [id number] [address] [place] [address], [place] [address] Oct, [facility] [address] [id number] [address] [place] [address], [place] [address] Sep, [facility] [address] [id number] [address] [place] [address], [place] [address] Sep, [facility] [address] [id number] [address] [place] [address], [place] [address] Sep, [facility] [address] [id number] [address] [place] [address], [place] [address] Sep, [facility] [address] [id number] [address] [place] [address], [place] [address] Sep, [facility] [address] [id number] [address] [place] [address], [place] [address] Sep, [facility] [address] [id number] [address] [place] [address], [place] [address] Sep, [facility] [address] [id number] [address] [place] [address], [place] [address] Sep, [facility] [address] [id number] [address] [place] [address], [place] [address] August, [facility] [address] [id number] [address] [place] [address], [place] [address] August, [facility] [address] [id number] [address] [place] [address], [place] [address] August, [facility] [address] [id number] [address] [place] [address], [place] [address] August, [facility] [address] [id number] [address] [place] [address], [place] [address] August, [facility] [address] [id number] [address] [place] [address], [place] [address] August, [facility] [address] [id number] [address] [place] [address], [place] [address] August, [facility] [address] [id number] [address] [place] [address], [place] [address] August, [facility] [address] [id number] [address] [place] [address], [place] [address] August, [facility] [address] [id number] [address] [place] [address], [place] [address] August, [facility] [address] [id number] [address] [place] [address], [place] [address] Jul, [facility] [address] [id number] [address] [place] [address], [place] [address] Jul, [facility] [address] [id number] [address] [place] [address], [place] [address] Jul, [facility] [address] [id number] [address] [place] [address], [place] [address] Jul, [facility] [address] [id number] [address] [place] [address], [place] [address] Jul, [facility] [address] [id number] [address] [place] [address], [place] [address] Jul, [facility] [address] [id number] [address] [place] [address], [place] [address] Jul, [facility] [address] [id number] [address] [place] [address], [place] [address] Jul, [facility] [address] [id number] [address] [place] [address], [place] [address] Jun, [facility] [address] [id number] [address] [place] [address], [place] [address] Jun, [facility] [address] [id number] [address] [place] [address], [place] [address] Jun, [facility] [address] [id number] [address] [place] [address], [place] [address] Jun, [facility] [address] [id number] [address] [place] [address], [place] [address] Jun, [facility] [address] [id number] [address] [place] [address], [place] [address] Jun, [facility] [address] [id number] [address] [place] [address], [place] [address] May, [facility] [address] [id number] [address] [place] [address], [place] [address] May, [facility] [address] [id number] [address] [place] [address], [place] [address] May, [facility] [address] [id number] [address] [place] [address], [place] [address] May, [facility] [address] [id number] [address] [place] [address], [place] [address] May, [facility] [address] [id number] [address] [place] [address], [place] [address] May, [facility] [address] [id number] [address] [place] [address], [place] [address] May, [facility] [address] [id number] [address] [place] [address], [place] [address] Apr, [facility] [address] [id number] [address] [place] [address], [place] [address] Apr, [facility] [address] [id number] [address] [place] [address], [place] [address] Apr, [facility] [address] [id number] [address] [place] [address], [place] [address] Apr, [facility] [address] [id number] [address] [place] [address], [place] [address] Apr, [facility] [address] [id number] [address] [place] [address], [place] [address] Apr, [facility] [address] [id number] [address] [place] [address], [place] [address] Mar, [facility] [address] [id number] [address] [place] [address], [place] [address] Mar, [facility] [address] [id number] [address] [place] [address], [place] [address] Mar, [facility] [address] [id number] [address] [place] [address], [place] [address] Mar, [facility] [address] [id number] [address] [place] [address], [place] [address] Mar, [facility] [address] [id number] [address] [place] [address], [place] [address] Mar, [facility] [address] [id number] [address] [place] [address], [place] [address] 16 Mar, 2013 [facility] [address] [id number] [address] [place] [address], [place] [address] 16 Mar, 2013 [facility] [address] [id number] [address] [place] [address], [place] [address] Mar, [facility] [address] [id number] [address] [place] [address], [place] [address] Mar, [facility] [address] [id number] [address] [place] [address], [place] [address] Feb, [facility] [address] [id number] [address] [place] [address], [place] [address] Feb, [facility] [address] [id number] [address] [place] [address], [place] [address] Feb, [facility] [address] [id number] [address] [place] [address], [place] [address] Feb, [facility] [address] [id number] [address] [place] [address], [place] [address] 14 Feb, 2013 [facility] [address] [id number] [address] [place] [address], [place] [address] 14 Feb, 2013 [facility] [address] [id number] [address] [place] [address], [place] [address] Feb, [facility] [address] [id number] [address] [place] [address], [place] [address] Feb, [facility] [address] [id number] [address] [place] [address], [place] [address] 08 Feb, 2013 [facility] [address] [id number] [address] [place] [address], [place] [address] Feb, [facility] [address] [id number] [address] [place] [address], [place] [address] Jan, [facility] [address] [id number] [address] [place] [address], [place] [address] Jan, [facility] [address] [id number] [address] [place] [address], [place] [address] Jan, [facility] [address] [id number] [address] [place] [address], [place] [id number] Jan, [facility] [address] [id number] [address] [place] [address], [place] [address] Jan, [facility] [address] [id number] [address] [place] [address], [place] [address] Jan, [facility] [address] [id number] [address] [place] [address], [place] [address] 17 Jan, 2013 [facility] [address] [id number] [address] [place] [address], [place] [address] Jan, [facility] [address] [id number] [address] [place] [address], [place] [address] Jan, [facility] [address] [id number] [address] [place] [address], [place] [address] 25 Dec, 2012 [facility] [address] [id number] [address] [place] [address], [place] [address] Dec, [facility] [address] [id number] [address] [place] [address], [place] [address] Dec, [facility] [address] [id number] [address] [place] [address], [place] [address] Dec, [facility] [address] [id number] [address] [place] [address], [place] [address] Nov, [facility] [address] [id number] [address] [place] [address], [place] [address] Nov, [facility] [address] [id number] [address] [place] [address], [place] [address] Nov, [facility] [address] [id number] [address] [place] [address], [place] [address] Nov, [facility] [address] [id number] [address] [place] [address], [place] [address] Nov, [facility] [address] [id number] [address] [place] [address], [place] [address] Nov, [facility] [address] [id number] [address] [place] [address], [place] [address] Oct, [facility] [address] [id number] [address] [place] [address], [place] [address] Oct, [facility] [address] [id number] [address] [place] [address], [place] [address] Oct, [facility] [address] [id number] [address] [place] [address], [place] [address] Oct, [facility] [address] [id number] [address] [place] [address], [place] [id number] Sep, [facility] [address] [id number] [address] [place] [address], [place] [id number] Sep, [facility] [address] [id number] [address] [place] [address], [place] [id number] Sep, [facility] [address] [id number] [address] [place] [address], [place] [id number] 14 Sep, 2012 [facility] [address] [id number] [address] [place] [address], [place] [id number] 10 Sep, 2012 [facility] [address] [id number] [address] [place] [address], [place] [id number] 17 Aug, 2012 [facility] [address] [id number] [address] [place] [address], [place] [id number] August, [facility] [address] [id number] [address] [place] [address], [place] [id number] 19 Jul, 2012 [facility] [address] [id number] [address] [place] [address], [place] [id number] 19 Jul, 2012 [facility] [address] [id number] [address] [place] [address], [place] [id number] 15 Jul, 2012 [facility] [address] [id number] [address] [place] [address], [place] [address] Jul, [facility] [address] [id number] [address] [place] [address], [place] [id number] 08 Jul, 2012 [facility] [address] [id number] [address] [place] [address], [place] [id number] Jun, [facility] [address] [id number] [address] [place] [address], [place] [address] Jun, [facility] [address] [id number] [address] [place] [address], [place] [id number] 15 Jun, 2012 [facility] [address] [id number] [address] [place] [address], [place] [address] Jun, [facility] [address] [id number] [address] [place] [address], [place] [id number] Jun, [facility] [address] [id number] [address] [place] [address], [place] [id number] 28 May, 2012 [facility] [address] [id number] [address] [place] [address], [place] [address] May, [facility] [address] [id number] [address] [place] [address], [place] [id number] May, [facility] [address] [id number] [address] [place] [address], [place] [id number] May, [facility] [address] [id number] [address] [place] [address], [place] [address] May, [facility] [address] [id number] [address] [place] [address], [place] [address] May, [facility] [address] [id number] [address] [place] [address], [place] [address] May, [facility] [address] [id number] [address] [place] [address], [place] [id number] May, [facility] [address] [id number] [address] [place] [address], [place] [address] May, [facility] [address] [id number] [address] [place] [address], [place] [address] Apr, [facility] [address] [id number] [address] [place] [address], [place] [address] Apr, [facility] [address] [id number] [address] [place] [address], [place] [address] Apr, [facility] [address] [id number] [address] [place] [address], [place] [address] Apr, [facility] [address] [id number] [address] [place] [address], [place] [address] Apr, [facility] [address] [id number] [address] [place] [address], [place] [address] Mar, [facility] [address] [id number] [address] [place] [address], [place] [address] Mar, [facility] [address] [id number] [address] [place] [address], [place] [id number] Mar, [facility] [address] [id number] [address] [place] [address] [place] [id number] 20 Mar, 2012 [facility] [address] [id number] [address] [place] [address], [place] [id number] 19 Mar, 2012 [facility] [address] [id number] [address] [place] [address], [place] [id number] 19 Mar, 2012 [facility] [address] [id number] [address] [place] [address], [place] [id number] 17 Mar, 2012 [facility] [address] [id number] [address] [place] [address], [place] [id number] 17 Mar, 2012 [facility] [address] [id number] [address] [place] [address], [place] [id number] 07 Mar, 2012 [facility] [address] [id number] [address] [place] [address], [place] [id number] 07 Mar, 2012 [facility] [address] [id number] [address] [place] [address], [place] [id number] 30 Feb, 2012 [facility] [address] [id number] [address] [place] [address], [place] [id number] 30 Feb, 2012 [facility] [address] [id number] [address] [place] [address], [place] [id number] 29 Feb, 2012 [facility] [address] [id number] [address] [place] [address], [place] [id number] 29 Feb, 2012 [facility] [address] [id number] [address] [place] [address], [place] [address] Feb, [facility] [address] [id number] [address] [place] [address], [place] [id number] 23 Feb, 2012 [facility] [address] [id number] [address] [place] [address], [place] [id number] 20 Feb, 2012 [facility] [address] [id number] [address] [place] [address], [place] [id number] 20 Feb, 2012 [facility] [address] [id number] [address] [place] [address], [place] [id number] 16 Feb, 2012 [facility] [address] [id number] [address] [place] [address], [place] [id number] 16 Feb, 2012 [facility] [address] [id number] [address] [place] [address], [place] [id number] 13 Feb, 2012 [facility] [address] [id number] [address] [place] [address], [place] [id number] 13 Feb, 2012 [facility] [address] [id number] [address] [place] [address], [place] [id number] Feb, [facility] [address] [id number] [address] [place] [address], [place] [address] Feb, [facility] [address] [id number] [address] [place] [address], [place] [address] Feb, [facility] [address] [id number] [address] [place] [address], [place] [address] Feb, [facility] [address] [id number] [address] [place] [address], [place] [address] Feb, [facility] [address] [id number] [address] [place] [address], [place] [address] Feb, [facility] [address] [id number] [address] [place] [address], [place] [address] Jan, [facility] [address] [id number] [address] [place] [address], [place] [id number] Jan, [facility] [address] [id number] [address] [place] [address], [place] [id number] 31 Jan, 2012 [facility] [address] [id number] [address] [place] [address], [place] [id number] 31 Jan, 2012 [facility] [address] [id number] [address] [place] [address], [place] [address] Jan, [facility] [address] [id number] [address] [place] [address], [place] [address] 24 Jan, 2012 [facility] [address] [id number] [address] [place] [address], [place] [address] Jan, [facility] [address] [id number] [address] [place] [address], [place] [address] Jan, [facility] [address] [id number] [address] [place] [address], [place] [address] Jan, [facility] [address] [id number] [address] [place] [address], [place] [address] Jan, [facility] [address] [id number] [address] [place] [address], [place] [address] 24 Dec, 2011 [facility] [address] [id number] [address] [place] [address], [place] [address] Dec, [facility] [address] [id number] [address] [place] [address], [place] [address] Dec, [facility] [address] [id number] [address] [place] [address], [place] [address] Dec, [facility] [address] [id number] [address] [place] [address], [place] [address] Nov, [facility] [address] [id number] [address] [place] [address], [place] [address] Nov, [facility] [address] [id number] [address] [place] [address], [place] [address] Nov, [facility] [address] [id number] [address] [place] [address], [place] [address] Nov, [facility] [address] [id number] [address] [place] [address], [place] [address] Nov, [facility] [address] [id number] [address] [place] [address], [place] [address] Nov, [facility] [address] [id number] [address] [place] [address], [place] [address] Oct, [facility] [address] [id number] [address] [place] [address], [place] [address] Oct, [facility] [address] [id number] [address] [place] [address], [place] [id number] 06 Oct, 2011 [facility] [address] [id number] [address] [place] [address], [place] [address] Oct, [facility] [address] [id number] [address] [place] [address], [place] [address] Oct, [facility] [address] [id number] [address] [place] [address], [place] [address] Sep, [facility] [address] [id number] [address] [place] [address], [place] [address] Sep, [facility] [address] [id number] [address] [place] [address], [place] [address] Sep, [facility] [address] [id number] [address] [place] [address], [place] [address] Sep, [facility] [address] [id number] [address] [place] [address], [place] [address] Sep, [facility] [address] [id number] [address] [place] [address], [place] [address] August, [facility] [address] [id number] [address] [place] [address], [place] [address] August, [facility] [address] [id number] [address] [place] [address], [place] [address] August, [facility] [address] [id number] [address] [place] [address], [place] [address] August, [facility] [address] [id number] [address] [place] [address], [place] [address] Jul, [facility] [address] [id number] [address] [place] [address], [place] [address] 24 Jul, 2011 [facility] [address] [id number] [address] [place] [address], [place] [id number] Jul, [facility] [address] [id number] [address] [place] [address], [place] [id number] 18 Jul, 2011 [facility] [address] [id number] [address] [place] [address], [place] [id number] 18 Jul, 2011 [facility] [address] [id number] [address] [place] [address], [place] [address] Jul, [facility] [address] [id number] [address] [place] [address], [place] [address] Jul, [facility] [address] [id number] [address] [place] [address], [place] [address] 10 Jul, 2011 [facility] [address] [id number] [address] [place] [address], [place] [address] Jul, [facility] [address] [id number] [address] [place] [address], [place] [address] Jul, [facility] [address] [id number] [address] [place] [address], [place] [id number] 05 Jul, 2011 [facility] [address] [id number] [address] [place] [address], [place] [address] Jul, [facility] [address] [id number] [address] [place] [address], [place] [address] Jul, [facility] [address] [id number] [address] [place] [address], [place] [address] Jul, [facility] [address] [id number] [address] [place] [address], [place] [address] Jun, [facility] [address] [id number] [address] [place] [address], [place] [address] Jun, [facility] [address] [id number] [address] [place] [address], [place] [address] Jun, [facility] [address] [id number] [address] [place] [address], [place] [address] 16 Jun, 2011 [facility] [address] [id number] [address] [place] [address], [place] [address] May, [facility] [address] [id number] [address] [place] [address], [place] [address] 16 May, 2011 [facility] [address] [id number] [address] [place] [address], [place] [address] May, [facility] [address] [id number] [address] [place] [address], [place] [address] Apr, [facility] [address] [id number] [address] [place] [address], [place] [address] Apr, [facility] [address] [id number] [address] [place] [address], [place] [address] 13 Apr, 2011 [facility] [address] [id number] [address] [place] [address], [place] [address] Apr, [facility] [address] [id number] [address] [place] [address], [place] [address] Apr, [facility] [address] [id number] [address] [place] [address], [place] [address] Mar, [facility] [address] [id number] [address] [place] [address], [place] [address] Mar, [facility] [address] [id number] [address] [place] [address], [place] [address] Mar, [facility] [address] [id number] [address] [place] [address], [place] [address] Mar, [facility] [address] [id number] [address] [place] [address], [place] [address] Mar, [facility] [address] [id number] [address] [place] [address], [place] [address] Mar, [facility] [address] [id number] [address] [place] [address], [place] [address] Mar, [facility] [address] [id number] [address] [place] [address], [place] [address] Feb, [facility] [address] [id number] [address] [place] [address], [place] [address] Feb, [facility] [address] [id number] [address] [place] [address], [place] [address] 22 Feb, 2011 [facility] [address] [id number] [address] [place] [address], [place] [address] 22 Feb, 2011 [facility] [address] [id number] [address] [place] [address], [place] [address] 16 Feb, 2011 [facility] [address] [id number] [address] [place] [address], [place] [address] 14 Feb, 2011 [facility] [address] [id number] [address] [place] [address], [place] [address] 10 Feb, 2011 [facility] [address] [id number] [address] [place] [address], [place] [address] 31 Jan, 2011 [facility] [address] [id number] [address] [place] [address], [place] [address] 31 Jan, 2011 [facility] [address] [id number] [address] [place] [address], [place] [address] 31 Jan, 2011 [facility] [address] [id number] [address] [place] [address], [place] [address] 18 Jan, 2011 [facility] [address] [id number] [address] [place] [address], [place] [id number] 17 Jan, 2011 [facility] [address] [id number] [address] [place] [address], [place] [address] 17 Jan, 2011 [facility] [address] [id number] [address] [place] [address], [place] [address] 17 Jun, 2010 [facility] [address] [id number] [address] [place] [address], [place] [address] 30 Mar, 2010 [facility] [address] [id number] [address] [place] [address], [place] [address] 20 Mar, 2010 [facility] [address] [id number] [address] [place] [address], [place] [address] 14 Mar, 2010 [facility] [address] [id number] [address] [place] [address] [address] 14 Mar, 2010 [facility] [address] [id number] [address] [place] [address], [place] [id number] 13 Mar, 2010 [facility] [address] [id number] [address] [place] [address], [place] [id number] 07 Mar, 2010 [facility] [address] [id number] [address] [place] [address], [place] [address] 02 Mar, 2010 [facility] [address] [id number] [address] [place] [address], [place] [address] Mar, [facility] [address] [id number] [address] [place] [address], [place] [address] 30 Feb, 2010 [facility] [address] [id number] [address] [place] [address], [place] [address] 29 Feb, 2010 [facility] [address] [id number] [address] [place] [address], [place] [id number] 17 Feb, 2010 [facility] [address] [id number] [address] [place] [address], [place] [address] 17 Feb, 2010 [facility] [address] [id number] [address] [place] [address], [place] [address] 16 Feb, 2010 [facility] [address] [id number] [address] [place] [address], [place] [id number] 08 Feb, 2010 [facility] [address] [id number] [address] [place] [id number] Feb, [facility] [address] [id number] [address] [place] [address] Feb, [facility] [address] [id number] [address] [place] [address], [place] [address] Jan, [facility] [address] [id number] [address] [place] [address] Jan, [facility] [address] [id number] [address] [place] [address] Jan, [facility] [address] [id number] [address] [place] [id number] 18 Jan, 2010 [facility] [address] [id number] [address] [place] [id number] 29 Mar, 2009 [facility] [address] [id number] [address] [place] [address] Mar, [facility] [address] [id number] [address] [place] [address] Mar, [facility] [address] [id number] [address] [place] [address] Mar, [facility] [address] [id number] [address] [place] [address] Mar, [facility] [address] [id number] [address] [place] [address] Mar, [facility] [address] [id number] [address] [place] [address] Feb, [facility] [address] [id number] [address] [place] [address] Feb, [facility] [address] [id number] [address] [place] [address] Jan, [facility] [address] [id number] [address] [place] [address] Sep, [facility] [address] [id number] [address] [place] [address] May, IMMUNIZATIONS No Known Immunizations SOCIAL HISTORY [...] History Left ear surgery Hospitalization History [facility] in [place]- Spontane ous Pneumothorax Hospitalization History [facility]- Colon resection Hospitalization History [facility] - diarrhea/ couldnt urin ate nov 2017 Hospitalization History pain /hip to foot right side 10/16/19 19
--- OUTSIDE RECORDS SUMMARY | 2019-08-28 09:16 | XMS REPORT ---
Author Author Dixon DE LEON [facility] Address [address] [place] [address] Care Team Providers Care Bird Sitter Name Role Phone STEPHAN DE LEON Unavailable PROBLEMS Type Condition ICD9-CM Code JCO18-XH Code Onset Dates Condition S tatus SNOMED Code Problem Insomnia G47.00 Active 271078854 Problem Anxiety F41.9 Active 73013370 Problem HTN (hypertension) I10 Active 3 0661209 Problem Hyperlipidemia E78.5 Active 68572 004 Problem Thoracic back pain, unspecif ied back pain laterality, unspecified chronicity M54.6 Active 640444237 Problem Vitamin D deficiency E55.9 Active 55449483 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 [address] [facility] [id number] [address] [place] [address] Oct, Schizophrenia, unspecified t ype F20.9 and Acute kidney injury N17.9 [facility] [address] [facility] [id number] [address] [place] [address] Oct, [facility] [address] [facility] [id number] [address] [place] [address] Oct, [facility] [address] [facility] [id number] [address] [place] [address] Oct, Thoracic back pain, unspecif ied back pain laterality, unspecified chronicity M54.6 [facility] [address] [id number] [address] [place] [address] Oct, [facility] [address] [id number] [address] [place] [address] Oct, [facility] [address] [id number] [address] [place] [address] Sep, Anxiety F41.9 [facility] [address] [id number] [address] [place] [address] Sep, [facility] [address] [id number] [address] [place] [address] Sep, Thoracic back pain, unspecif ied back pain laterality, unspecified chronicity M54.6 [facility] [address] [id number] [address] [place] [address] Sep, [facility] [address] [id number] [address] [place] [address] Sep, [facility] [address] [id number] [address] [place] [address] Sep, [facility] [address] [id number] [address] [place] [address] Sep, [facility] [address] [id number] [address] [place] [address] Sep, [facility] [address] [id number] [address] [place] [address] Sep, [facility] [address] [facility] [id number] [address] [place] [address] 10 Sep, 2018 Chronic pain G89.29 ; Chroni c kidney disease, stage III (moderate) N18.3 ; Hyperlipidemia E78.[address] [facility] [address] [id number] [address] [place] [address] Sep, Thoracic back pain, unspecif ied back pain laterality, unspecified chronicity M54.6 [facility] [address] [id number] [address] [place] [address] August, Anxiety F41.9 [facility] [address] [id number] [address] [place] [address] August, Thoracic back pain, unspecif ied back pain laterality, unspecified chronicity M54.[address] 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 [address] [id number] [address] [place] [address] August, [facility] [address] [id number] [address] [place] [address] August, [facility] [address] [id number] [address] [place] [address] August, Thoracic back pain, unspecif ied back pain laterality, unspecified chronicity M54.6 [facility] [address] [id number] [address] [place] [address] August, [facility] [address] [id number] [address] [place] [address] August, Anxiety F41.9 and Thoracic b ack pain, unspecified back pain laterality, unspecified chronicity M54.6 [facility] [address] [id number] [address] [place] [address] Jul, [facility] [address] [id number] [address] [place] [address] Jul, Thoracic back pain, unspecif ied back pain laterality, unspecified chronicity M54.6 [facility] [address] [id number] [address] [place] [address] Jun, Anxiety F41.9 and Thoracic b ack pain, unspecified back pain laterality, unspecified chronicity M54.6 [facility] [address] [id number] [address] [place] [address] 08 Jun, 2018 Anxiety F41.9 and Thoracic b ack pain, unspecified back pain laterality, unspecified chronicity M54.6 [facility] [address] [id number] [address] [place] [address] Jun, Thoracic back pain, unspecif ied back pain laterality, unspecified chronicity M54.6 [facility] [address] [id number] [address] [place] [address] Jun, Anxiety F41.9 and Thoracic b ack pain, unspecified back pain laterality, unspecified chronicity M54.6 [place] [address] [id number] [address] [place] [address] May, [facility] [address] [id number] [address] [place] [address] May, [facility] [address] [id number] [address] [place] [address] 08 May, 2018 [facility] [address] [id number] [address] [place] [address] 06 May, 2018 Anxiety F41.9 and Encounter for medication monitoring Z51.81 [facility] [address] [id number] [address] [place] [address] May, Anxiety F41.9 and Thoracic b ack pain, unspecified back pain laterality, unspecified chronicity M54.6 [facility] [address] [id number] [address] [place] [address] Apr, Hyperlipidemia 272.4 [facility] [address] [id number] [address] [place] [address] Apr, Chronic pain G89.29 ; Anxiet y F41.9 ; Cervical radiculopathy M54.12 [address]7 [facility] [address] [id number] [address] [place] [address] Apr, [facility] [address] [id number] [address] [place] [address] Apr, Anxiety F41.9 and Thoracic b ack pain, unspecified back pain laterality, unspecified chronicity M54.6 [facility] [address] [id number] [address] [place] [address] Mar, [facility] [address] [id number] [address] [place] [address] Mar, Anxiety F41.9 and Thoracic b ack pain, unspecified back pain laterality, unspecified chronicity M54.6 [facility] [address] [id number] [address] [place] [address] Feb, Anxiety F41.9 and Thoracic b ack pain, unspecified back pain laterality, unspecified chronicity M54.6 [facility] [address] [id number] [address] [place] [address] 07 Feb, 2018 Thoracic back pain, unspecif ied back pain laterality, unspecified chronicity M54.6 [facility] [address] [id number] [address] [place] [address] Jan, [facility] [address] [id number] [address] [place] [address] Jan, Anxiety F41.9 and Thoracic b ack pain, unspecified back pain laterality, unspecified chronicity M54.6 [facility] [address] [id number] [address] [place] [address] Dec, Diarrhea of presumed infecti ous origin R19.7 [facility] [address] [id number] [address] [place] [address] 19 Dec, 2017 Diarrhea of presumed infecti ous origin R19.7 [facility] [address] [id number] [address] [place] [address] 18 Dec, 2017 Thoracic back pain, unspecif ied back pain laterality, unspecified chronicity M54.6 [place] [address] [facility] [id number] [address] [place] [address] 17 Dec, 2017 [place] [address] [facility] [id number] [address] [place] [address] Dec, Anxiety F41.9 and Thoracic b ack pain, unspecified back pain laterality, unspecified chronicity M54.6 [place] [address] [facility] [id number] [address] [place] [address] Dec, Diarrhea of presumed infecti ous origin R19.7 [place] [address] [facility] [id number] [address] [place] [address] Dec, [place] [address] [facility] [id number] [address] [place] [address] Dec, Anxiety F41.9 and Thoracic b ack pain, unspecified back pain laterality, unspecified chronicity M54.6 [place] [address] [facility] [id number] [address] [place] [address] Dec, Anxiety F41.9 and Thoracic b ack pain, unspecified back pain laterality, unspecified chronicity M54.6 [facility] [employer] [address] [place] [id number] Dec, Diarrhea of presumed infectious origin R 19.7 ; Anxiety F41.9 ; Thoracic back pain, unspecified back pain laterality, unspecified chronicity M54.6 and HTN (hypertension) I10 [place] [address] [facility] [id number] [address] [place] [address] Dec, Anxiety F41.9 [facility] [id number] [address] [place] [id number] Dec, Anxiety F41.9 ; Diarrhea of presumed inf ectious origin R19.7 ; Generalized abdominal pain R10.84 and Localized edema R60.0 [place] [address] [facility] [id number] [address] [place] [address] Nov, [facility] [id number] [address] [place] [id number] Nov, Anxiety F41.9 ; Urinary retention R33.9 ; Diarrhea of presumed infectious origin R19.7 ; Weakness R53.1 ; Acute kidney failure, unspecified N17.9 ; Chronic kidney disease, stage III (moderate) N18.3 and Thoracic back pain, unspecified back pain laterality, unspecified chronicity M54.6 [place] [address] [address] Oct, Thoracic back pain, unspecif ied back pain laterality, unspecified chronicity M54.6 and Anxiety F41.9 [place] [address] [address] Sep, Thoracic back pain, unspecif ied back pain laterality, unspecified chronicity M54.6 and Anxiety F41.9 [place] [address] [address] Sep, Thoracic back pain, unspecif ied back pain laterality, unspecified chronicity M54.6 ; Anxiety F41.9 and Encounter for medication monitoring Z51.81 [place] [address] [address] August, [place] [address] [address] August, Thoracic back pain, unspecif ied back pain laterality, unspecified chronicity M54.6 and Anxiety F41.9 [place] [address] [address] August, Hyperlipidemia E78.5 and HTN (hypertension) I10 [place] [address] [address] August, [place] [address] [place] [id number] [place] [address] August, Medicare welcome exam Z00.00 ; Chronic kidney failure N18.9 ; Anxiety F41.9 ; Chronic pain G89.29 ; Insomnia G47.00 ; Hyperlipidemia E78.5 ; HTN (hypertension) I10 and Thoracic back pain, unspecified back pain laterality, unspecified chronicity M54.6 [facility] [address] [address] Jul, [facility] [address] [place] [id number] [address] [place] [address] Jul, [facility] [address] [address] Jul, [place] [address] [address] Jul, Anxiety F41.9 [place] [address] [address] Jul, Thoracic back pain, unspecif ied back pain laterality, unspecified chronicity M54.6 and Anxiety F41.9 [place] [address] [place] [id number] [address] [place] [address] Jun, Thoracic back pain, unspecif ied back pain laterality, unspecified chronicity M54.6 and Anxiety F41.9 [place] [address] [place] [id number] [address] [place] [address] May, Thoracic back pain, unspecif ied back pain laterality, unspecified chronicity M54.6 and Anxiety F41.9 [place] [address] [place] [id number] [address] [place] [address] Apr, Thoracic back pain, unspecif ied back pain laterality, unspecified chronicity M54.6 and Anxiety F41.9 [place] [address] [place] [id number] [address] [place] [address] Mar, [place] [address] [address] Mar, Thoracic back pain, unspecif ied back pain laterality, unspecified chronicity M54.6 and Anxiety F41.9 [place] [address] [place] [id number] [address] [place] [address] Mar, Thoracic back pain, unspecif ied back pain laterality, unspecified chronicity M54.6 ; HTN (hypertension) I10 ; Hyperlipidemia E78.5 and Anxiety F41.9 [place] [address] [facility] [id number] [address] [place] [address] Feb, Thoracic back pain, unspecif ied back pain laterality, unspecified chronicity M54.6 and Anxiety F41.9 [place] [address] [place] [id number] [address] [place] [address] Nov, [place] [address] [place] [id number] [place] [address] Oct, [place] [address] [place] [id number] [address] [place] [address] Oct, Thoracic back pain, unspecif ied back pain laterality, unspecified chronicity M54.6 [place] [address] [place] [id number] [address] [place] [address] Oct, HTN (hypertension) I10 ; Con stipation K59.00 ; Hyperlipidemia E78.5 ; Thoracic back pain, unspecified back pain laterality, unspecified chronicity M54.6 ; Chronic pain G89.29 ; Anxiety F41.9 ; Chronic kidney failure N18.9 ; Environmental allergies Z91.09 ; Vitamin D deficiency E55.9 and Primary insomnia F51.01 [place] [address] [facility] [id number] [address] [place] [address] Sep, Anxiety F41.9 [place] [address] [facility] [id number] [address] [place] [address] Sep, [place] [address] [place] [id number] [address] [place] [address] August, Anxiety F41.9 [place] [address] [place] [id number] [address] [place] [address] August, [place] [address] [place] [address] [place] [address] Jul, Anxiety [address]9 [facility] [address] [facility] [id number] [address] [place] [address] Jul, [facility] [address] [facility] [id number] [address] [place] [address] Jun, Anxiety F41.9 [facility] [address] [facility] [id number] [address] [place] [address] Jun, [facility] [address] [facility] [id number] [address] [place] [address] May, [facility] [address] [place] [id number] [address] [place] [address] May, [facility] [address] [place] [id number] [address] [place] [address] May, [facility] [address] [place] [id number] [address] [place] [address] Apr, [facility] [address] [facility] [id number] [address] [place] [address] Apr, [facility] [address] [place] [id number] [address] [place] [address] Apr, Anxiety F41.9 [facility] [address] [place] [id number] [address] [place] [address] Apr, Anxiety F41.9 [facility] [address] [place] [id number] [address] [place] [address] Apr, [facility] [address] [facility] [id number] [address] [place] [address] Mar, HTN (hypertension) I10 ; Phillip mor R25.1 ; Hypercholesterolemia E78.0 ; Constipation K59.00 ; Chronic pain G89.29 ; Hyperlipidemia E78.5 ; Insomnia G47.00 ; Anxiety F41.9 and Thoracic back pain, unspecified back pain laterality, unspecified chronicity M54.6 [facility] [address] [id number] [address] [place] [address] Mar, Tremor R25.1 ; HTN (hyperten stas) I10 ; Hypercholesterolemia E78.0 ; Constipation K59.00 ; Chronic pain G89.29 ; Hyperlipidemia E78.5 ; Insomnia G47.00 ; Anxiety F41.9 and Thoracic back pain, unspecified back pain laterality, unspecified chronicity M54.6 [facility] [address] [id number] [address] [place] [address] Mar, [facility] [address] [id number] [address] [place] [address] Mar, [facility] [address] [facility] [id number] [address] [place] [address] Feb, [facility] [address] [facility] [id number] [address] [place] [address] Jan, [facility] [address] [facility] [id number] [address] [place] [address] Jan, [facility] [address] [facility] [id number] [address] [place] [address] Dec, [facility] [address] [facility] [id number] [address] [place] [address] Nov, [facility] [address] [facility] [id number] [address] [place] [address] Nov, [facility] [address] [facility] [id number] [address] [place] [address] Oct, Anxiety F41.9 [facility] [address] [id number] [address] [place] [address] Oct, Chronic pain G89.29 [facility] [address] [facility] [id number] [address] [place] [address] Sep, [facility] [address] [facility] [id number] [address] [place] [address] Sep, [facility] [address] [facility] [id number] [address] [place] [address] [address] Sep, 2015 [facility] [address] [facility] [id number] [address] [place] [address] Sep, [facility] [address] [facility] [id number] [address] [place] [address] Sep, Chronic pain syndrome G89.4 [facility] [address] [facility] [id number] [address] [place] [address] Sep, HTN (hypertension) I10 ; Chr onic pain G89.29 ; Hypercholesterolemia E78.0 ; Chronic kidney failure N18.9 ; Constipation, unspecified constipation type K59.00 ; Anxiety F41.9 and Thoracic back pain, unspecified back pain laterality, unspecified chronicity M54.6 [place] [address] [place] [id number] [address] [place] [address] August, Chronic pain syndrome G89.4 [place] [address] [place] [id number] [address] [place] [address] August, Chronic pain syndrome G89.4 [place] [address] [place] [id number] [address] [place] [address] Jul, Anxiety disorder, unspecifie d F41.9 and Chronic pain syndrome G89.4 [place] [address] [place] [id number] [address] [place] [address] Jul, Insomnia, unspecified G47.00 and Chronic pain syndrome G89.4 [place] [address] [facility] [id number] [address] [place] [address] Jul, Allergic rhinitis J30.9 [facility] [address] [facility] [id number] [address] [place] [address] Jul, Constipation, unspecified K5 9.00 [facility] [address] [facility] [id number] [address] [place] [address] Jul, [facility] [address] [place] [id number] [address] [place] [address] Jun, [facility] [address] [id number] [address] [place] [address] Jun, [facility] [address] [id number] [address] [place] [address] Jun, [facility] [address] [facility] [id number] [address] [place] [address] Jun, [facility] [address] [facility] [id number] [address] [place] [address] Jun, [facility] [address] [facility] [id number] [address] [place] [phone] Jun, [facility] [address] [facility] [id number] [address] [place] [id number] May, [facility] [address] [facility] [id number] [address] [place] [id number] May, [facility] [address] [facility] [id number] [address] [place] [id number] May, Anxiety F41.9 ; Insomnia G47 .00 ; Hyperlipidemia E78.5 ; Chronic pain G89.29 ; HTN (hypertension) I10 ; Environmental allergies V15.[address] [facility] [address] [facility] [id number] [address] [place] [phone] Apr, [facility] [address] [facility] [id number] [address] [place] [id number] Apr, [facility] [address] [facility] [id number] [address] [place] [phone] Apr, [facility] [address] [facility] [id number] [address] [place] [phone] Mar, [facility] [address] [facility] [id number] [address] [place] [id number] Mar, [facility] [address] [facility] [id number] [address] [place] [id number] Mar, [facility] [address] [id number] Feb, [facility] [address] [phone] Feb, [facility] [address] [id number] Feb, [facility] [address] [place] [phone] Jan, HTN (hypertension) I10 ; Con stipation K59.00 ; Chronic pain G89.29 ; Hyperlipidemia E78.5 ; Hypercholesterolemia E78.0 ; Insomnia G47.00 and Anxiety F41.[address] [phone] Jan, [address] [phone] Dec, [facility] [address] [id number] Nov, [address] [id number] Oct, Chronic kidney disease, unsp ecified 585.9 ; Chronic pain syndrome 338.4 ; Hyperlipidemia 272.4 and Essential hypertension 401.[address] [address] Oct, Chronic kidney disease 585.9 [facility] [address] [address] Oct, [facility] [address] [place] [address] Oct, Chronic kidney disease, unsp ecified 585.9 ; Hypercalcemia 275.42 ; Hyperlipidemia 272.4 ; Essential hypertension 401.9 ; Chronic pain syndrome 338.4 ; Insomnia 780.52 ; Constipation 564.00 ; Environmental allergies V15.09 and Anxiety 300.00 [facility] [address] [id number] [address] [place] [address] 15 Oct, 2014 Chronic kidney disease 585.9 [facility] [address] [id number] [address] [place] [address] 15 Oct, 2014 [facility] [address] [id number] [address] [place] [address] 14 Oct, 2014 Chronic kidney disease 585.9 and Hyperlipidemia 272.4 [facility] [address] [id number] [address] [place] [address] 10 Oct, 2014 [facility] [address] [id number] [address] [place] [address] Oct, [facility] [address] [id number] [address] [place] [address] [address], [address] [facility] [address] [id number] [address] [place] [address] Sep, [facility] [address] [id number] [address] [place] [address] Sep, Chronic kidney disease 585.9 and Hyperlipidemia 272.4 [facility] [address] [id number] [address] [place] [address] Sep, [facility] [address] [id number] [address] [place] [address] August, [facility] [address] [id number] [address] [place] [address] August, [facility] [address] [id number] [address] [place] [address] Jul, [facility] [address] [id number] [address] [place] [address] Jul, [facility] [address] [id number] [address] [place] [address] Jun, [facility] [address] [id number] [address] [place] [address] Jun, [facility] [address] [id number] [address] [place] [address], [place] [address] Jun, [facility] [address] [id number] [address] [place] [address], [place] [address] Jun, [facility] [address] [id number] [address] [place] [address], [place] [address] Jun, [facility] [address] [id number] [address] [place] [address], [place] [address] Jun, [facility] [address] [id number] [address] [place] [address], [place] [address] Jun, [facility] [address] [id number] [address] [place] [address], [place] [address] Jun, [facility] [address] [id number] [address] [place] [address], [place] [address] May, [facility] [address] [id number] [address] [place] [address], [place] [address] May, [facility] [address] [id number] [address] [place] [address], [place] [address] May, [facility] [address] [id number] [address] [place] [address], [place] [address] May, [facility] [address] [id number] [address] [place] [address], [place] [address] Apr, [facility] [address] [id number] [address] [place] [address] Apr, [facility] [address] [id number] [address] [place] [address], [place] [address] Apr, [facility] [address] [id number] [address] [place] [address], [place] [address] Apr, [facility] [address] [id number] [address] [place] [address] Apr, [facility] [address] [id number] [address] [place] [address], [place] [address] Apr, [facility] [address] [id number] [address] [place] [address], [place] [address] Apr, [facility] [address] [id number] [address] [place] [address], [place] [address] Apr, [facility] [address] [id number] [address] [place] [address], [place] [address] Apr, [facility] [address] [id number] [address] [place] [address], [place] [address] Apr, [facility] [address] [id number] [address] [place] [address], [place] [address] Apr, [facility] [address] [id number] [address] [place] [address], [place] [address] Mar, [facility] [address] [id number] [address] [place] [address], [place] [address] Mar, [facility] [address] [id number] [address] [place] [address], [place] [address] Feb, [facility] [address] [id number] [address] [place] [address], [place] [address] Feb, [facility] [address] [id number] [address] [place] [address], [place] [address] Feb, [facility] [address] [id number] [address] [place] [address], [place] [address] Feb, [facility] [address] [id number] [address] [place] [address], [place] [address] Feb, [facility] [address] [id number] [address] [place] [address], [place] [address] Feb, [facility] [address] [id number] [address] [place] [address], [place] [address] Feb, [facility] [address] [id number] [address] [place] [address], [place] [address] Feb, [facility] [address] [id number] [address] [place] [address], [place] [address] Feb, [facility] [address] [id number] [address] [place] [address], [place] [address] Feb, [facility] [address] [id number] [address] [place] [address], [place] [address] Jan, [facility] [address] [id number] [address] [place] [address], [place] [address] Jan, [facility] [address] [id number] [address] [place] [address], [place] [address] Jan, [facility] [address] [id number] [address] [place] [address], [place] [address] Jan, [facility] [address] [id number] [address] [place] [address], [place] [address] Jan, [facility] [address] [id number] [address] [place] [address], [place] [address] Jan, [facility] [address] [id number] [address] [place] [address], [place] [address] Jan, [facility] [address] [id number] [address] [place] [address] Jan, [facility] [address] [id number] [address] [place] [address] 16 Jan, 2014 [facility] [address] [id number] [address] [place] [address] Jan, [facility] [address] [id number] [address] [place] [address], [place] [address] Jan, [facility] [address] [id number] [address] [place] [address], [place] [address] Dec, [facility] [address] [id number] [address] [place] [address], [place] [address] Dec, [facility] [address] [id number] [address] [place] [address], [place] [address] 19 Dec, 2013 [facility] [address] [id number] [address] [place] [address], [place] [address] 19 Dec, 2013 [facility] [address] [id number] [address] [place] [address], [place] [address] 18 Dec, 2013 [facility] [address] [id number] [address] [place] [address], [place] [address] 18 Dec, 2013 [facility] [address] [id number] [address] [place] [address], [place] [address] Dec, 2013 [facility] [address] [id number] [address] [place] [address], [place] [address] Dec, [facility] [address] [id number] [address] [place] [address], [place] [address] Nov, [facility] [address] [id number] [address] [place] [address], [place] [address] Nov, [facility] [address] [id number] [address] [place] [address], [place] [address] Nov, [facility] [address] [id number] [address] [place] [address], [place] [address] Nov, [facility] [address] [id number] [address] [place] [address], [place] [address] Nov, [facility] [address] [id number] [address] [place] [address], [place] [address] Nov, [facility] [address] [id number] [address] [place] [address], [place] [address] Nov, [facility] [address] [id number] [address] [place] [address], [place] [address] Nov, [facility] [address] [id number] [address] [place] [address], [place] [address] Oct, [facility] [address] [id number] [address] [place] [address], [place] [address] Oct, [facility] [address] [id number] [address] [place] [address], [place] [address] Oct, [facility] [address] [id number] [address] [place] [address], [place] [address] Oct, [facility] [address] [id number] [address] [place] [address], [place] [address] Sep, [facility] [address] [id number] [address] [place] [address], [place] [address] Sep, [facility] [address] [id number] [address] [place] [address], [place] [address] Sep, [facility] [address] [id number] [address] [place] [address], [place] [address] Sep, [facility] [address] [id number] [address] [place] [address], [place] [address] Sep, [facility] [address] [id number] [address] [place] [address], [place] [address] Sep, [facility] [address] [id number] [address] [place] [address], [place] [address] Sep, [facility] [address] [id number] [address] [place] [address], [place] [address] Sep, [facility] [address] [id number] [address] [place] [address], [place] [address] August, [facility] [address] [id number] [address] [place] [address], [place] [address] August, [facility] [address] [id number] [address] [place] [address], [place] [address] August, [facility] [address] [id number] [address] [place] [address], [place] [address] August, [facility] [address] [id number] [address] [place] [address], [place] [address] August, [facility] [address] [id number] [address] [place] [address], [place] [address] August, [facility] [address] [id number] [address] [place] [address], [place] [address] August, [facility] [address] [id number] [address] [place] [address], [place] [address] August, [facility] [address] [id number] [address] [place] [address], [place] [address] August, [facility] [address] [id number] [address] [place] [address], [place] [address] August, [facility] [address] [id number] [address] [place] [address], [place] [address] Jul, [facility] [address] [id number] [address] [place] [address], [place] [address] Jul, [facility] [address] [id number] [address] [place] [address], [place] [address] Jul, [facility] [address] [id number] [address] [place] [address], [place] [address] Jul, [facility] [address] [id number] [address] [place] [address], [place] [address] Jul, [facility] [address] [id number] [address] [place] [address], [place] [address] Jul, [facility] [address] [id number] [address] [place] [address], [place] [address] Jul, [facility] [address] [id number] [address] [place] [address], [place] [address] Jul, [facility] [address] [id number] [address] [place] [address], [place] [address] Jun, [facility] [address] [id number] [address] [place] [address], [place] [address] Jun, [facility] [address] [id number] [address] [place] [address], [place] [address] Jun, [facility] [address] [id number] [address] [place] [address], [place] [address] Jun, [facility] [address] [id number] [address] [place] [address], [place] [address] Jun, [facility] [address] [id number] [address] [place] [address], [place] [address] Jun, [facility] [address] [id number] [address] [place] [address], [place] [address] May, [facility] [address] [id number] [address] [place] [address], [place] [address] May, [facility] [address] [id number] [address] [place] [address], [place] [address] May, [facility] [address] [id number] [address] [place] [address], [place] [address] May, [facility] [address] [id number] [address] [place] [address], [place] [address] May, [facility] [address] [id number] [address] [place] [address], [place] [address] May, [facility] [address] [id number] [address] [place] [address], [place] [address] May, [facility] [address] [id number] [address] [place] [address], [place] [address] Apr, [facility] [address] [id number] [address] [place] [address], [place] [address] Apr, [facility] [address] [id number] [address] [place] [address], [place] [address] Apr, [facility] [address] [id number] [address] [place] [address], [place] [address] Apr, [facility] [address] [id number] [address] [place] [address], [place] [address] Apr, [facility] [address] [id number] [address] [place] [address], [place] [address] Apr, [facility] [address] [id number] [address] [place] [address], [place] [address] Mar, [facility] [address] [id number] [address] [place] [address], [place] [address] Mar, [facility] [address] [id number] [address] [place] [address], [place] [address] Mar, [facility] [address] [id number] [address] [place] [address], [place] [address] Mar, [facility] [address] [id number] [address] [place] [address], [place] [address] Mar, [facility] [address] [id number] [address] [place] [address], [place] [address] Mar, [facility] [address] [id number] [address] [place] [address], [place] [address] 16 Mar, 2013 [facility] [address] [id number] [address] [place] [address], [place] [address] 16 Mar, 2013 [facility] [address] [id number] [address] [place] [address], [place] [address] Mar, [facility] [address] [id number] [address] [place] [address], [place] [address] Mar, [facility] [address] [id number] [address] [place] [address], [place] [address] Feb, [facility] [address] [id number] [address] [place] [address], [place] [address] Feb, [facility] [address] [id number] [address] [place] [address], [place] [address] Feb, [facility] [address] [id number] [address] [place] [address], [place] [address] Feb, [facility] [address] [id number] [address] [place] [address], [place] [address] 14 Feb, 2013 [facility] [address] [id number] [address] [place] [address], [place] [address] 14 Feb, 2013 [facility] [address] [id number] [address] [place] [address], [place] [address] Feb, [facility] [address] [id number] [address] [place] [address], [place] [address] Feb, [facility] [address] [id number] [address] [place] [address], [place] [address] 08 Feb, 2013 [facility] [address] [id number] [address] [place] [address], [place] [address] Feb, [facility] [address] [id number] [address] [place] [address], [place] [address] Jan, [facility] [address] [id number] [address] [place] [address], [place] [address] Jan, [facility] [address] [id number] [address] [place] [address], [place] [address] Jan, [facility] [address] [id number] [address] [place] [address], [place] [address] Jan, [facility] [address] [id number] [address] [place] [address], [place] [address] Jan, [facility] [address] [id number] [address] [place] [address], [place] [address] Jan, [facility] [address] [id number] [address] [place] [address], [place] [address] 17 Jan, 2013 [facility] [address] [id number] [address] [place] [address], [place] [address] Jan, [facility] [address] [id number] [address] [place] [address], [place] [address] Jan, [facility] [address] [id number] [address] [place] [address], [place] [address] 25 Dec, 2012 [facility] [address] [id number] [address] [place] [address], [place] [address] Dec, [facility] [address] [id number] [address] [place] [address], [place] [address] Dec, [facility] [address] [id number] [address] [place] [address], [place] [address] Dec, [facility] [address] [id number] [address] [place] [address], [place] [address] Nov, [facility] [address] [id number] [address] [place] [address], [place] [address] Nov, [facility] [address] [id number] [address] [place] [address], [place] [address] Nov, [facility] [address] [id number] [address] [place] [address], [place] [address] Nov, [facility] [address] [id number] [address] [place] [address], [place] [address] Nov, [facility] [address] [id number] [address] [place] [address], [place] [address] Nov, [facility] [address] [id number] [address] [place] [address], [place] [address] Oct, [facility] [address] [id number] [address] [place] [address], [place] [address] Oct, [facility] [address] [id number] [address] [place] [address], [place] [address] Oct, [facility] [address] [id number] [address] [place] [address], [place] [address] Oct, [facility] [address] [id number] [address] [place] [address], [place] [address] Sep, [facility] [address] [id number] [address] [place] [address], [place] [address] Sep, [facility] [address] [id number] [address] [place] [address], [place] [address] Sep, [facility] [address] [id number] [address] [place] [address], [place] [address] 14 Sep, 2012 [facility] [place] [address] [id number] [address] [place] [address], [place] [address] 10 Sep, 2012 [facility] [address] [id number] [address] [place] [address], [place] [address] 17 Aug, 2012 [facility] [address] [id number] [address] [place] [address], [place] [address] August, [facility] [address] [id number] [address] [place] [address], [place] [address] 19 Jul, 2012 [facility] [place] [address] [id number] [address] [place] [address], [place] [address] 19 Jul, 2012 [facility] [place] [address] [id number] [address] [place] [address], [place] [address] 15 Jul, 2012 [facility] [place] [address] [id number] [address] [place] [address], [place] [address] Jul, [facility] [place] [address] [id number] [address] [place] [address], [place] [address] 08 Jul, 2012 [facility] [place] [address] [id number] [address] [place] [address], [place] [address] Jun, [facility] [address] [id number] [address] [place] [address], [place] [address] Jun, [facility] [place] [address] [id number] [address] [place] [address], [place] [address] 15 Jun, 2012 [facility] [place] [address] [id number] [address] [place] [address], [place] [address] Jun, [facility] [address] [id number] [address] [place] [address], [place] [address] Jun, [facility] [address] [id number] [address] [place] [address], [place] [address] 28 May, 2012 [facility] [place] [address] [id number] [address] [place] [address], [place] [address] May, [facility] [address] [id number] [address] [place] [address], [place] [address] May, [facility] [address] [id number] [address] [place] [address], [place] [address] May, [facility] [address] [id number] [address] [place] [address], [place] [address] May, [facility] [address] [id number] [address] [place] [address], [place] [address] May, [facility] [address] [id number] [address] [place] [address], [place] [address] May, [facility] [address] [id number] [address] [place] [address], [place] [address] May, [facility] [address] [id number] [address] [place] [address], [place] [address] May, [facility] [address] [id number] [address] [place] [address], [place] [address] Apr, [facility] [place] [address] [id number] [address] [place] [address], [place] [address] Apr, [facility] [address] [id number] [address] [place] [address], [place] [address] Apr, [facility] [address] [id number] [address] [place] [address], [place] [address] Apr, [facility] [place] [address] [id number] [address] [place] [address], [place] [address] Apr, [facility] [address] [id number] [address] [place] [address], [place] [address] Mar, [facility] [address] [id number] [address] [place] [address], [place] [address] Mar, [facility] [address] [id number] [address] [place] [address], [place] [address] Mar, [facility] [place] [address] [id number] [address] [place] [address] [place] [address] 20 Mar, 2012 [facility] [address] [id number] [address] [place] [address], [place] [address] 19 Mar, 2012 [facility] [address] [id number] [address] [place] [address], [place] [address] 19 Mar, 2012 [facility] [address] [id number] [address] [place] [address], [place] [address] 17 Mar, 2012 [facility] [address] [id number] [address] [place] [address], [place] [address] 17 Mar, 2012 [facility] [address] [id number] [address] [place] [address], [place] [address] 07 Mar, 2012 [facility] [address] [id number] [address] [place] [address], [place] [address] 07 Mar, 2012 [facility] [address] [id number] [address] [place] [address], [place] [address] 30 Feb, 2012 [facility] [address] [id number] [address] [place] [address], [place] [address] 30 Feb, 2012 [facility] [address] [id number] [address] [place] [address], [place] [address] 29 Feb, 2012 [facility] [address] [id number] [address] [place] [address], [place] [address] 29 Feb, 2012 [facility] [address] [id number] [address] [place] [address], [place] [address] Feb, [facility] [address] [id number] [address] [place] [address], [place] [address] 23 Feb, 2012 [facility] [address] [id number] [address] [place] [address], [place] [address] 20 Feb, 2012 [facility] [address] [id number] [address] [place] [address], [place] [address] 20 Feb, 2012 [facility] [address] [id number] [address] [place] [address], [place] [address] 16 Feb, 2012 [facility] [address] [id number] [address] [place] [address], [place] [address] 16 Feb, 2012 [facility] [address] [id number] [address] [place] [address], [place] [address] 13 Feb, 2012 [facility] [address] [id number] [address] [place] [address], [place] [address] 13 Feb, 2012 [facility] [address] [id number] [address] [place] [address], [place] [address] Feb, [facility] [address] [id number] [address] [place] [address], [place] [address] Feb, [facility] [address] [id number] [address] [place] [address], [place] [address] Feb, [facility] [address] [id number] [address] [place] [address], [place] [address] Feb, [facility] [address] [id number] [address] [place] [address], [place] [address] Feb, [facility] [address] [id number] [address] [place] [address], [place] [address] Feb, [facility] [address] [id number] [address] [place] [address], [place] [address] Jan, [facility] [address] [id number] [address] [place] [address], [place] [address] Jan, [facility] [address] [id number] [address] [place] [address], [place] [address] 31 Jan, 2012 [facility] [address] [id number] [address] [place] [address], [place] [address] 31 Jan, 2012 [facility] [address] [id number] [address] [place] [address], [place] [address] Jan, [facility] [address] [id number] [address] [place] [address], [place] [address] 24 Jan, 2012 [facility] [address] [id number] [address] [place] [address], [place] [address] Jan, [facility] [address] [id number] [address] [place] [address], [place] [address] Jan, [facility] [address] [id number] [address] [place] [address], [place] [address] Jan, [facility] [address] [id number] [address] [place] [address], [place] [address] Jan, [facility] [address] [id number] [address] [place] [address], [place] [address] 24 Dec, 2011 [facility] [address] [id number] [address] [place] [address], [place] [address] Dec, [facility] [address] [id number] [address] [place] [address], [place] [address] Dec, [facility] [address] [id number] [address] [place] [address], [place] [address] Dec, [facility] [address] [id number] [address] [place] [address], [place] [address] Nov, [facility] [address] [id number] [address] [place] [address], [place] [address] Nov, [facility] [address] [id number] [address] [place] [address], [place] [address] Nov, [facility] [address] [id number] [address] [place] [address], [place] [address] Nov, [facility] [address] [id number] [address] [place] [address], [place] [address] Nov, [facility] [address] [id number] [address] [place] [address], [place] [address] Nov, [facility] [address] [id number] [address] [place] [address], [place] [address] Oct, [facility] [address] [id number] [address] [place] [address], [place] [address] Oct, [facility] [address] [id number] [address] [place] [address], [place] [address] 06 Oct, 2011 [facility] [place] [address] [id number] [address] [place] [address], [place] [address] Oct, [facility] [address] [id number] [address] [place] [address], [place] [address] Oct, [facility] [address] [id number] [address] [place] [address], [place] [address] Sep, [facility] [address] [id number] [address] [place] [address], [place] [address] Sep, [facility] [address] [id number] [address] [place] [address], [place] [address] Sep, [facility] [address] [id number] [address] [place] [address], [place] [address] Sep, [facility] [place] [address] [id number] [address] [place] [address], [place] [address] Sep, [facility] [place] [address] [id number] [address] [place] [address], [place] [address] August, [facility] [place] [address] [id number] [address] [place] [address], [place] [address] August, [facility] [address] [id number] [address] [place] [address], [place] [address] August, [facility] [place] [address] [id number] [address] [place] [address], [place] [address] August, [facility] [address] [id number] [address] [place] [address], [place] [address] Jul, [facility] [address] [id number] [address] [place] [address], [place] [address] 24 Jul, 2011 [facility] [address] [id number] [address] [place] [address], [place] [address] Jul, [facility] [address] [id number] [address] [place] [address], [place] [address] 18 Jul, 2011 [facility] [address] [id number] [address] [place] [address], [place] [address] 18 Jul, 2011 [facility] [address] [id number] [address] [place] [address], [place] [address] Jul, [facility] [address] [id number] [address] [place] [address], [place] [address] Jul, [facility] [address] [id number] [address] [place] [address], [place] [address] 10 Jul, 2011 [facility] [address] [id number] [address] [place] [address], [place] [address] Jul, [facility] [address] [id number] [address] [place] [address], [place] [address] Jul, [facility] [address] [id number] [address] [place] [address], [place] [address] 05 Jul, 2011 [facility] [place] [address] [id number] [address] [place] [address], [place] [address] Jul, [facility] [place] [address] [id number] [address] [place] [address], [place] [address] Jul, [facility] [place] [address] [id number] [address] [place] [address], [place] [address] Jul, [facility] [address] [id number] [address] [place] [address], [place] [address] Jun, [facility] [address] [id number] [address] [place] [address], [place] [address] Jun, [facility] [address] [id number] [address] [place] [address], [place] [address] Jun, [facility] [address] [id number] [address] [place] [address], [place] [address] 16 Jun, 2011 [facility] [address] [id number] [address] [place] [address], [place] [address] May, [facility] [address] [id number] [address] [place] [address], [place] [address] 16 May, 2011 [facility] [address] [id number] [address] [place] [address], [place] [address] May, [facility] [address] [id number] [address] [place] [address], [place] [address] Apr, [facility] [address] [id number] [address] [place] [address], [place] [address] Apr, [facility] [address] [id number] [address] [place] [address], [place] [address] 13 Apr, 2011 [facility] [address] [id number] [address] [place] [address], [place] [address] Apr, [facility] [address] [id number] [address] [place] [address], [place] [address] Apr, [facility] [place] [address] [id number] [address] [place] [address], [place] [address] Mar, [facility] [address] [id number] [address] [place] [address], [place] [address] Mar, [facility] [place] [address] [id number] [address] [place] [address], [place] [address] Mar, [facility] [address] [id number] [address] [place] [address], [place] [address] Mar, [facility] [place] [address] [id number] [address] [place] [address], [place] [address] Mar, [facility] [address] [id number] [address] [place] [address], [place] [address] Mar, [facility] [address] [id number] [address] [place] [address], [place] [address] Mar, [facility] [address] [id number] [address] [place] [address], [place] [address] Feb, [facility] [address] [id number] [address] [place] [address], [place] [address] Feb, [facility] [address] [id number] [address] [place] [address], [place] [address] 22 Feb, 2011 [facility] [address] [id number] [address] [place] [address], [place] [address] 22 Feb, 2011 [facility] [address] [id number] [address] [place] [address], [place] [address] 16 Feb, 2011 [facility] [address] [id number] [address] [place] [address], [place] [address] 14 Feb, 2011 [facility] [address] [id number] [address] [place] [address], [place] [address] 10 Feb, 2011 [facility] [address] [id number] [address] [place] [address], [place] [address] 31 Jan, 2011 [facility] [address] [id number] [address] [place] [address], [place] [address] 31 Jan, 2011 [facility] [address] [id number] [address] [place] [address], [place] [address] 31 Jan, 2011 [facility] [address] [id number] [address] [place] [address], [place] [address] 18 Jan, 2011 [facility] [address] [id number] [address] [place] [address], [place] [address] 17 Jan, 2011 [facility] [address] [id number] [address] [place] [address], [place] [address] 17 Jan, 2011 [facility] [address] [id number] [address] [place] [address], [place] [address] 17 Jun, 2010 [facility] [address] [id number] [address] [place] [address], [place] [address] 30 Mar, 2010 [facility] [address] [id number] [address] [place] [address], [place] [address] 20 Mar, 2010 [facility] [address] [id number] [address] [place] [address], [place] [address] 14 Mar, 2010 [facility] [address] [id number] [address] [place] [address] [address] 14 Mar, 2010 [facility] [address] [id number] [address] [place] [address], [place] [address] 13 Mar, 2010 [facility] [address] [id number] [address] [place] [address], [place] [address] 07 Mar, 2010 [facility] [address] [id number] [address] [place] [address], [place] [address] 02 Mar, 2010 [facility] [address] [id number] [address] [place] [address], [place] [address] Mar, [facility] [address] [id number] [address] [place] [address], [place] [address] 30 Feb, 2010 [facility] [address] [id number] [address] [place] [address], [place] [address] 29 Feb, 2010 [facility] [address] [id number] [address] [place] [address], [place] [address] 17 Feb, 2010 [facility] [address] [id number] [address] [place] [address], [place] [address] 17 Feb, 2010 [facility] [address] [id number] [address] [place] [address], [place] [address] 16 Feb, 2010 [facility] [address] [id number] [address] [place] [address], [place] [address] 08 Feb, 2010 [facility] [address] [id number] [address] [place] [address] Feb, [facility] [address] [id number] [address] [place] [address] Feb, [facility] [address] [id number] [address] [place] [address], [place] [address] Jan, [facility] [address] [id number] [address] [place] [address] Jan, [facility] [address] [id number] [address] [place] [address] Jan, [facility] [address] [id number] [address] [place] [address] [address], [address] [facility] [address] [id number] [address] [place] [address] [address], [address] [facility] [address] [id number] [address] [place] [address] Mar, [facility] [address] [id number] [address] [place] [address] Mar, [facility] [address] [id number] [address] [place] [address] Mar, [facility] [address] [id number] [address] [place] [address] Mar, [facility] [address] [id number] [address] [place] [address] Mar, [facility] [address] [id number] [address] [place] [address] Feb, [facility] [address] [id number] [address] [place] [address] Feb, [facility] [address] [id number] [address] [place] [address] Jan, [facility] [address] [id number] [address] [place] [address] Sep, [facility] [address] [id number] [address] [place] [address] May, IMMUNIZATIONS No Known Immunizations SOCIAL HISTORY [...] History [facility] in [place]- Spontane ous Pneumothorax Hospitalization History [facility]- Colon resection Hospitalization History [facility] - diarrhea/ couldnt urin ate nov 2017 Hospitalization History pain /hip to foot right side 10/16/19 19
--- OUTSIDE RECORDS SUMMARY | 2019-08-28 09:16 | XMS REPORT ---
Author Author Dixon Lundberg Doctor Organization [facility] Address Unknown Phone Unavailable Care Team Providers Care [employer] Name Role Phone Migration, Doctor Unavailable Unavailable PROBLEMS Type Condition ICD9-CM Code ULC88-RX Code Onset Dates Condition S tatus SNOMED Code Problem Insomnia G47.00 Active 218815049 Problem Anxiety F41.9 Active 58506023 Problem HTN (hypertension) I10 Active 3 4062942 Problem Hyperlipidemia E78.5 Active 84888 004 Problem Thoracic back pain, unspecif ied back pain laterality, unspecified chronicity M54.6 Active 899711546 Problem Vitamin D deficiency E55.9 Active 49099121 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 06085680 Problem Chronic pain G89.29 Active 0393979 1 Problem Schizophrenia, unspecified type F20.9 Active 60150157 Problem Constipation K59.00 Active 4283601 8 Problem Environmental allergies Z91.09 Active 412496499 Problem Primary insomnia F51.01 Active 397 2004 Problem Chronic kidney disease, stage III (moderate) N18.3 Active 640473236 Problem Vision loss H54.7 Active 68429373 1 ALLERGIES No Information ENCOUNTERS Encounter Location Date Diagnosis [place] [address] [id number] [address] [place] [phone] Oct, Schizophrenia, unspecified t ype F20.9 and Acute kidney injury N17.9 [facility] [address] [id number] [address] [place] [phone] Oct, [facility] [address] [id number] [address] [place] [phone] Oct, [facility] [address] [id number] [address] [place] [address] Oct, Thoracic back pain, unspecif ied back pain laterality, unspecified chronicity M54.6 [facility] [address] [id number] [address] [place] [phone] Oct, [facility] [address] [id number] [address] [place] [phone] Oct, [facility] [address] [id number] [address] [place] [address] Sep, Anxiety F41.9 [facility] [address] [id number] [address] [place] [phone] Sep, [facility] [address] [id number] [address] [place] [phone] Sep, Thoracic back pain, unspecif ied back pain laterality, unspecified chronicity M54.6 [facility] [address] [id number] [address] [place] [phone] Sep, [facility] [address] [id number] [address] [place] [phone] Sep, [facility] [address] [id number] [address] [place] [phone] Sep, [facility] [address] [id number] [address] [place] [phone] Sep, [facility] [address] [id number] [address] [place] [phone] Sep, [facility] [address] [id number] [address] [place] [phone] Sep, [facility] [address] [id number] [address] [place] [phone] Sep, Chronic pain G89.29 ; Chroni c kidney disease, stage III (moderate) N18.3 ; Hyperlipidemia E78.5 and Insomnia G47.00 [facility] [address] [id number] [address] [place] [phone] Sep, Thoracic back pain, unspecif ied back pain laterality, unspecified chronicity M54.6 [facility] [address] [id number] [address] [place] [id number] August, Anxiety F41.9 [facility] [address] [id number] [address] [place] [phone] August, Thoracic back pain, unspecif ied back pain laterality, unspecified chronicity M54.6 and Anxiety F41.9 [facility] [address] [id number] [address] [place] [phone] August, 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 [facility] [address] [id number] [address] [place] [phone] August, 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 [facility] [address] [id number] [address] [place] [phone] August, [facility] [address] [id number] [address] [place] [phone] August, [facility] [address] [id number] [address] [place] [address] August, Thoracic back pain, unspecif ied back pain laterality, unspecified chronicity M54.6 [facility] [address] [id number] [address] [place] [address] August, [facility] [address] [id number] [address] [place] [id number] August, Anxiety F41.9 and Thoracic b ack pain, unspecified back pain laterality, unspecified chronicity M54.6 [facility] [address] [id number] [address] [place] [phone] Jul, [facility] [address] [id number] [address] [place] [phone] Jul, Thoracic back pain, unspecif ied back pain laterality, unspecified chronicity M54.6 [facility] [address] [id number] [address] [place] [address] Jun, Anxiety F41.9 and Thoracic b ack pain, unspecified back pain laterality, unspecified chronicity M54.6 [facility] [address] [id number] [address] [place] [phone] 08 Jun, 2018 Anxiety F41.9 and Thoracic b ack pain, unspecified back pain laterality, unspecified chronicity M54.6 [facility] [address] [id number] [address] [place] [phone] Jun, Thoracic back pain, unspecif ied back pain laterality, unspecified chronicity M54.6 [place] [address] [id number] [address] [place] [address] Jun, Anxiety F41.9 and Thoracic b ack pain, unspecified back pain laterality, unspecified chronicity M54.6 [place] [address] [id number] [address] [place] [phone] May, [place] [address] [id number] [address] [place] [address] May, [place] [address] [id number] [address] [place] [phone] May, [facility] [address] [id number] [address] [place] [address] May, Anxiety F41.9 and Encounter for medication monitoring Z51.81 [place] [address] [id number] [address] [place] [phone] May, Anxiety F41.9 and Thoracic b ack pain, unspecified back pain laterality, unspecified chronicity M54.6 [place] [address] [facility] [id number] [address] [place] [address] Apr, Hyperlipidemia 272.4 [place] [address] [id number] [address] [place] [address] Apr, Chronic pain G89.29 ; Anxiet y F41.9 ; Cervical radiculopathy M54.12 and Vision loss H54.7 [place] [address] [id number] [address] [place] [id number] Apr, [place] [address] [id number] [address] [place] [address] Apr, Anxiety F41.9 and Thoracic b ack pain, unspecified back pain laterality, unspecified chronicity M54.6 [facility] [address] [id number] [address] [place] [phone] Mar, [facility] [address] [id number] [address] [place] [address] Mar, Anxiety F41.9 and Thoracic b ack pain, unspecified back pain laterality, unspecified chronicity M54.6 [facility] [address] [id number] [address] [place] [phone] Feb, Anxiety F41.9 and Thoracic b ack pain, unspecified back pain laterality, unspecified chronicity M54.6 [facility] [address] [id number] [address] [place] [phone] 07 Feb, 2018 Thoracic back pain, unspecif ied back pain laterality, unspecified chronicity M54.6 [facility] [address] [id number] [address] [place] [phone] Jan, [facility] [address] [id number] [address] [place] [phone] Jan, Anxiety F41.9 and Thoracic b ack pain, unspecified back pain laterality, unspecified chronicity M54.6 [facility] [address] [id number] [address] [place] [phone] Dec, Diarrhea of presumed infecti ous origin R19.7 [facility] [address] [id number] [address] [place] [phone] 19 Dec, 2017 Diarrhea of presumed infecti ous origin R19.7 [facility] [address] [id number] [address] [place] [phone] 18 Dec, 2017 Thoracic back pain, unspecif ied back pain laterality, unspecified chronicity M54.6 [facility] [address] [id number] [address] [place] [phone] Dec, [place] [address] [id number] [address] [place] [address] Dec, Anxiety F41.9 and Thoracic b ack pain, unspecified back pain laterality, unspecified chronicity M54.6 [place] [address] [id number] [address] [place] [address] Dec, Diarrhea of presumed infecti ous origin R19.7 [place] [address] [id number] [address] [place] [phone] Dec, [place] [address] [id number] [address] [place] [id number] Dec, Anxiety F41.9 and Thoracic b ack pain, unspecified back pain laterality, unspecified chronicity M54.6 [place] [address] [place] [id number] [address] [place] [phone] Dec, Anxiety F41.9 and Thoracic b ack pain, unspecified back pain laterality, unspecified chronicity M54.6 [facility] [address] [place] [id number] Dec, Diarrhea of presumed infectious origin R 19.7 ; Anxiety F41.9 ; Thoracic back pain, unspecified back pain laterality, unspecified chronicity M54.6 and HTN (hypertension) I10 [place] [address] [id number] [address] [place] [address] Dec, Anxiety F41.9 [facility] [address] [place] [id number] Dec, Anxiety F41.9 ; Diarrhea of presumed inf ectious origin R19.7 ; Generalized abdominal pain R10.84 and Localized edema R60.0 [place] [address] [id number] [address] [place] [address] Nov, [facility] [address] [place] [id number] Nov, Anxiety F41.9 ; Urinary retention R33.9 ; Diarrhea of presumed infectious origin R19.7 ; Weakness R53.1 ; Acute kidney failure, unspecified N17.9 ; Chronic kidney disease, stage III (moderate) N18.3 and Thoracic back pain, unspecified back pain laterality, unspecified chronicity M54.6 [place] [address] [place] [id number] [address] [place] [address] Oct, Thoracic back pain, unspecif ied back pain laterality, unspecified chronicity M54.6 and Anxiety F41.9 [place] [address] [id number] Sep, Thoracic back pain, unspecif ied back pain laterality, unspecified chronicity M54.6 and Anxiety F41.9 [place] [address] [place] [id number] [place] [address] Sep, Thoracic back pain, unspecif ied back pain laterality, unspecified chronicity M54.6 ; Anxiety F41.9 and Encounter for medication monitoring Z51.81 [place] [address] [id number] August, [place] [address] [place] [id number] [place] [address] August, Thoracic back pain, unspecif ied back pain laterality, unspecified chronicity M54.6 and Anxiety F41.9 [place] [address] [id number] August, Hyperlipidemia E78.5 and HTN (hypertension) I10 [place] [address] [place] [id number] [address] [place] [address] August, [place] [address] [place] [id number] [place] [phone] August, [facility] ; Chronic kidney failure N18.9 ; Anxiety F41.9 ; Chronic pain G89.29 ; Insomnia G47.00 ; Hyperlipidemia E78.5 ; HTN (hypertension) I10 and Thoracic back pain, unspecified back pain laterality, unspecified chronicity M54.6 [facility] [address] [id number] [address] [place] [phone] Jul, [facility] [address] [id number] [address] [place] [address] Jul, [facility] [address] [id number] [address] [place] [id number] Jul, [facility] [address] [id number] [address] [place] [address] Jul, Anxiety F41.9 [facility] [address] [id number] [address] [place] [address] Jul, Thoracic back pain, unspecif ied back pain laterality, unspecified chronicity M54.6 and Anxiety F41.9 [facility] [address] [id number] [address] [place] [phone] Jun, Thoracic back pain, unspecif ied back pain laterality, unspecified chronicity M54.6 and Anxiety F41.9 [facility] [address] [id number] [address] [place] [id number] May, Thoracic back pain, unspecif ied back pain laterality, unspecified chronicity M54.6 and Anxiety F41.9 [facility] [address] [id number] [address] [place] [phone] Apr, Thoracic back pain, unspecif ied back pain laterality, unspecified chronicity M54.6 and Anxiety F41.9 [facility] [address] [id number] [address] [place] [address] Mar, [facility] [address] [id number] [address] [place] [address] Mar, Thoracic back pain, unspecif ied back pain laterality, unspecified chronicity M54.6 and Anxiety F41.9 [facility] [address] [id number] [address] [place] [address] Mar, Thoracic back pain, unspecif ied back pain laterality, unspecified chronicity M54.6 ; HTN (hypertension) I10 ; Hyperlipidemia E78.5 and Anxiety F41.9 [place] [address] [phone] Feb, Thoracic back pain, unspecif ied back pain laterality, unspecified chronicity M54.6 and Anxiety F41.9 [place] [address] [phone] Nov, [place] [address] [phone] Oct, [place] [address] [phone] Oct, Thoracic back pain, unspecif ied back pain laterality, unspecified chronicity M54.6 [place] [address] [id number] Oct, HTN (hypertension) I10 ; Con stipation K59.00 ; Hyperlipidemia E78.5 ; Thoracic back pain, unspecified back pain laterality, unspecified chronicity M54.6 ; Chronic pain G89.29 ; Anxiety F41.9 ; Chronic kidney failure N18.9 ; Environmental allergies Z91.09 ; Vitamin D deficiency E55.9 and Primary insomnia F51.01 [place] [address] [address] Sep, Anxiety F41.9 [place] [address] [id number] Sep, [place] [address] [place] [id number] [place] [address] August, Anxiety F41.9 [place] [address] [place] [id number] [place] [address] August, [place] [address] [address] Jul, Anxiety F41.9 [facility] [address] [id number] [address] [place] [address] Jul, [facility] [address] [id number] [address] [place] [address] Jun, Anxiety F41.9 [facility] [address] [id number] [address] [place] [address] Jun, [facility] [address] [id number] [address] [place] [address] May, [facility] [address] [id number] [address] [place] [phone] May, [facility] [address] [id number] [address] [place] [address] May, [facility] [address] [id number] [address] [place] [address] Apr, [facility] [address] [id number] [address] [place] [address] Apr, [facility] [address] [id number] [address] [place] [address] Apr, Anxiety F41.9 [facility] [address] [id number] [address] [place] [address] Apr, Anxiety F41.9 [facility] [address] [id number] [address] [place] [address] Apr, [facility] [address] [id number] [address] [place] [address] Mar, HTN (hypertension) I10 ; Phillip mor R25.1 ; Hypercholesterolemia E78.0 ; Constipation K59.00 ; Chronic pain G89.29 ; Hyperlipidemia E78.5 ; Insomnia G47.00 ; Anxiety F41.9 and Thoracic back pain, unspecified back pain laterality, unspecified chronicity M54.6 [facility] [address] [id number] [address] [place] [address] Mar, Tremor R25.1 ; HTN (hyperten stas) I10 ; Hypercholesterolemia E78.0 ; Constipation K59.00 ; Chronic pain G89.29 ; Hyperlipidemia E78.5 ; Insomnia G47.00 ; Anxiety F41.9 and Thoracic back pain, unspecified back pain laterality, unspecified chronicity M54.6 [facility] [address] [id number] [address] [place] [address] Mar, [facility] [address] [id number] [address] [place] [address] Mar, [facility] [address] [id number] [address] [place] [address] Feb, [facility] [address] [id number] [address] [place] [address] Jan, [facility] [address] [id number] [address] [place] [address] Jan, [facility] [address] [id number] [address] [place] [address] Dec, [facility] [address] [id number] [address] [place] [address] Nov, [facility] [address] [id number] [address] [place] [address] Nov, [facility] [address] [id number] [address] [place] [address] Oct, Anxiety F41.9 [facility] [address] [id number] [address] [place] [address] Oct, Chronic pain G89.29 [facility] [address] [id number] [address] [place] [address] Sep, [facility] [address] [id number] [address] [place] [address] Sep, [facility] [address] [id number] [address] [place] [address] Sep, [facility] [address] [id number] [address] [place] [address] Sep, [facility] [address] [place] [id number] [place] [address] Sep, Chronic pain syndrome G89.4 [facility] [address] [place] [id number] [address] [place] [address] Sep, HTN (hypertension) I10 ; Chr onic pain G89.29 ; Hypercholesterolemia E78.0 ; Chronic kidney failure N18.9 ; Constipation, unspecified constipation type K59.00 ; Anxiety F41.9 and Thoracic back pain, unspecified back pain laterality, unspecified chronicity M54.6 [place] [address] [place] [id number] [address] [place] [address] August, Chronic pain syndrome G89.4 [place] [address] [address] August, Chronic pain syndrome G89.4 [place] [address] [place] [id number] [address] [place] [address] Jul, Anxiety disorder, unspecifie d F41.9 and Chronic pain syndrome G89.4 [place] [address] [place] [id number] [address] [place] [address] Jul, Insomnia, unspecified G47.00 and Chronic pain syndrome G89.4 [place] [address] [place] [id number] [address] [place] [address] Jul, Allergic rhinitis J30.9 [facility] [address] [id number] [address] [place] [address] Jul, Constipation, unspecified K5 9.00 [place] [address] [facility] [id number] [address] [place] [phone] Jul, [facility] [address] [place] [id number] [address] [place] [address] Jun, [place] [address] [place] [id number] [address] [place] [address] Jun, [facility] [address] [id number] [address] [place] [address] Jun, [facility] [address] [id number] [address] [place] [address] Jun, [facility] [address] [id number] [address] [place] [id number] Jun, [facility] [address] [id number] [address] [place] [address] Jun, [facility] [address] [id number] [address] [place] [address] May, [facility] [address] [id number] [address] [place] [address] May, [facility] [address] [id number] [address] [place] [phone] May, Anxiety F41.9 ; Insomnia G47 .00 ; Hyperlipidemia E78.5 ; Chronic pain G89.29 ; HTN (hypertension) I10 ; Environmental allergies V15.09 and Constipation 564.00 [facility] [address] [id number] [address] [place] [phone] Apr, [facility] [address] [id number] [address] [place] [id number] Apr, [facility] [address] [id number] [address] [place] [phone] Apr, [facility] [address] [id number] [address] [place] [phone] Mar, [facility] [address] [id number] [address] [place] [phone] Mar, [facility] [address] [id number] [address] [place] [phone] Mar, [facility] [address] [id number] [address] [place] [phone] Feb, [facility] [address] [id number] Feb, [place] [address] [id number] Feb, [place] [address] [id number] Jan, HTN (hypertension) I10 ; Con stipation K59.00 ; Chronic pain G89.29 ; Hyperlipidemia E78.5 ; Hypercholesterolemia E78.0 ; Insomnia G47.00 and Anxiety F41.[address] [id number] Jan, [place] [address] [id number] Dec, [address] [id number] Nov, [place] [address] [id number] Oct, Chronic kidney disease, unsp ecified 585.9 ; Chronic pain syndrome 338.4 ; Hyperlipidemia 272.4 and Essential hypertension 401.[address] [address] Oct, Chronic kidney disease 585.9 [place] [address] [id number] Oct, [address] [address] Oct, Chronic kidney disease, unsp ecified 585.9 ; Hypercalcemia 275.42 ; Hyperlipidemia 272.4 ; Essential hypertension 401.9 ; Chronic pain syndrome 338.4 ; Insomnia 780.52 ; Constipation 564.00 ; Environmental allergies V15.09 and Anxiety [address] [id number] 15 Oct, 2014 Chronic kidney disease 585.9 [facility] [address] [id number] [address] [place] [address], [place] [id number] 15 Oct, 2014 [facility] [address] [id number] [address] [place] [id number] 14 Oct, 2014 Chronic kidney disease 585.9 and Hyperlipidemia 272.4 [facility] [address] [id number] [address] [place] [address] 10 Oct, 2014 [facility] [address] [id number] [address] [place] [address] Oct, [facility] [address] [id number] [address] [place] [address] Sep, [facility] [address] [id number] [address] [place] [address] Sep, [facility] [address] [id number] [address] [place] [address] Sep, Chronic kidney disease 585.9 and Hyperlipidemia 272.4 [facility] [address] [id number] [address] [place] [address] Sep, [facility] [address] [id number] [address] [place] [address] August, [facility] [address] [id number] [address] [place] [address] August, [facility] [address] [id number] [address] [place] [address] Jul, [facility] [address] [id number] [address] [place] [address] Jul, [facility] [address] [id number] [address] [place] [address] Jun, [facility] [address] [id number] [address] [place] [address] Jun, [facility] [address] [id number] [address] [place] [address], [place] [address] 16 Jun, 2014 [facility] [address] [id number] [address] [place] [address], [place] [address] Jun, [facility] [address] [id number] [address] [place] [address], [place] [address] Jun, [facility] [address] [id number] [address] [place] [address], [place] [address] Jun, [facility] [address] [id number] [address] [place] [address], [place] [address] Jun, [facility] [address] [id number] [address] [place] [address], [place] [address] Jun, [facility] [address] [id number] [address] [place] [address], [place] [address] May, [facility] [address] [id number] [address] [place] [address], [place] [address] May, [facility] [address] [id number] [address] [place] [address], [place] [address] May, [facility] [address] [id number] [address] [place] [address], [place] [address] May, [facility] [address] [id number] [address] [place] [address], [place] [address] Apr, [facility] [address] [id number] [address] [place] [address], [place] [address] Apr, [facility] [address] [id number] [address] [place] [address], [place] [address] Apr, [facility] [address] [id number] [address] [place] [address], [place] [address] Apr, [facility] [address] [id number] [address] [place] [address], [place] [address] Apr, [facility] [address] [id number] [address] [place] [address], [place] [address] Apr, [facility] [address] [id number] [address] [place] [address], [place] [address] Apr, [facility] [address] [id number] [address] [place] [address], [place] [address] Apr, [facility] [address] [id number] [address] [place] [address], [place] [address] Apr, [facility] [address] [id number] [address] [place] [address], [place] [address] Apr, [facility] [address] [id number] [address] [place] [address], [place] [address] Apr, [facility] [address] [id number] [address] [place] [address], [place] [address] Mar, [facility] [address] [id number] [address] [place] [address], [place] [address] Mar, [facility] [address] [id number] [address] [place] [address], [place] [address] Feb, [facility] [address] [id number] [address] [place] [address], [place] [address] Feb, [facility] [address] [id number] [address] [place] [address], [place] [address] Feb, [facility] [address] [id number] [address] [place] [address], [place] [address] Feb, [facility] [address] [id number] [address] [place] [address] Feb, [facility] [address] [id number] [address] [place] [address], [place] [address] Feb, [facility] [address] [id number] [address] [place] [address], [place] [address] Feb, [facility] [address] [id number] [address] [place] [address] Feb, [facility] [address] [id number] [address] [place] [address], [place] [address] Feb, [facility] [address] [id number] [address] [place] [address], [place] [address] Feb, [facility] [address] [id number] [address] [place] [address], [place] [address] Jan, [facility] [address] [id number] [address] [place] [address], [place] [address] Jan, [facility] [address] [id number] [address] [place] [address], [place] [address] Jan, [facility] [address] [id number] [address] [place] [address], [place] [address] Jan, [facility] [address] [id number] [address] [place] [address], [place] [address] Jan, [facility] [address] [id number] [address] [place] [address], [place] [address] Jan, [facility] [address] [id number] [address] [place] [address], [place] [address] Jan, [facility] [address] [id number] [address] [place] [address], [place] [address] Jan, [facility] [address] [id number] [address] [place] [address], [place] [address] 16 Jan, 2014 [facility] [address] [id number] [address] [place] [address], [place] [address] Jan, [facility] [address] [id number] [address] [place] [address], [place] [address] Jan, [facility] [address] [id number] [address] [place] [address], [place] [address] Dec, [facility] [address] [id number] [address] [place] [address], [place] [address] Dec, [facility] [address] [id number] [address] [place] [address], [place] [address] 19 Dec, 2013 [facility] [address] [id number] [facility] [address] 19 Dec, 2013 [facility] [address] [id number] [facility] [address] 18 Dec, 2013 [facility] [address] [id number] [facility] [address] Dec, [facility] [address] [id number] [address] [place] [address], [place] [address] Dec, 2013 [facility] [address] [id number] [address] [place] [address], [place] [address] Dec, 2013 [facility] [address] [id number] [address] [place] [address], [place] [address] Nov, [facility] [address] [id number] [address] [place] [address], [place] [address] Nov, [facility] [address] [id number] [address] [place] [address], [place] [address] Nov, [facility] [address] [id number] [address] [place] [address], [place] [address] Nov, [facility] [address] [id number] [address] [place] [address], [place] [address] Nov, [facility] [address] [id number] [address] [place] [address], [place] [address] Nov, [facility] [address] [id number] [address] [place] [address], [place] [address] Nov, [facility] [address] [id number] [address] [place] [address], [place] [address] Nov, [facility] [address] [id number] [address] [place] [address], [place] [address] Oct, [facility] [address] [id number] [address] [place] [address], [place] [address] Oct, [facility] [address] [id number] [address] [place] [address], [place] [address] Oct, [facility] [address] [id number] [facility] [address] Oct, [facility] [address] [id number] [address] [place] [address], [place] [address] Sep, [facility] [address] [id number] [facility] [address] Sep, [facility] [address] [id number] [address] [place] [address], [place] [address] Sep, [facility] [address] [id number] [address] [place] [address], [place] [address] Sep, [facility] [address] [id number] [address] [place] [address], [place] [address] Sep, [facility] [address] [id number] [address] [place] [address], [place] [address] Sep, [facility] [address] [id number] [address] [place] [address], [place] [address] Sep, [facility] [address] [id number] [address] [place] [address], [place] [address] Sep, [facility] [address] [id number] [address] [place] [address], [place] [address] August, [facility] [address] [id number] [address] [place] [address], [place] [address] August, [facility] [address] [id number] [address] [place] [address], [place] [address] August, [facility] [address] [id number] [address] [place] [address], [place] [address] August, [facility] [address] [id number] [address] [place] [address], [place] [address] August, [facility] [address] [id number] [address] [place] [address], [place] [address] August, [facility] [address] [id number] [address] [place] [address], [place] [address] August, [facility] [address] [id number] [address] [place] [address], [place] [address] August, [facility] [address] [id number] [address] [place] [address], [place] [address] August, [facility] [address] [id number] [address] [place] [address], [place] [address] August, [facility] [address] [id number] [address] [place] [address], [place] [address] Jul, [facility] [address] [id number] [address] [place] [address], [place] [address] Jul, [facility] [address] [id number] [address] [place] [address], [place] [address] Jul, [facility] [address] [id number] [address] [place] [address], [place] [address] Jul, [facility] [address] [id number] [address] [place] [address], [place] [address] Jul, [facility] [address] [id number] [address] [place] [address], [place] [address] Jul, [facility] [address] [id number] [address] [place] [address], [place] [address] Jul, [facility] [address] [id number] [address] [place] [address], [place] [address] Jul, [facility] [address] [id number] [address] [place] [address], [place] [address] Jun, [facility] [address] [id number] [address] [place] [address], [place] [address] Jun, [facility] [address] [id number] [address] [place] [address], [place] [address] Jun, [facility] [address] [id number] [address] [place] [address], [place] [address] Jun, [facility] [address] [id number] [address] [place] [address], [place] [address] Jun, [facility] [address] [id number] [address] [place] [address], [place] [address] Jun, [facility] [address] [id number] [address] [place] [address], [place] [address] May, [facility] [address] [id number] [address] [place] [address], [place] [address] May, [facility] [address] [id number] [address] [place] [address], [place] [address] May, [facility] [address] [id number] [address] [place] [address], [place] [address] May, [facility] [address] [id number] [address] [place] [address], [place] [address] May, [facility] [address] [id number] [address] [place] [address], [place] [address] May, [facility] [address] [id number] [address] [place] [address], [place] [address] May, [facility] [address] [id number] [address] [place] [address], [place] [address] Apr, [facility] [address] [id number] [address] [place] [address], [place] [address] Apr, [facility] [address] [id number] [address] [place] [address], [place] [address] Apr, [facility] [address] [id number] [address] [place] [address], [place] [address] Apr, [facility] [address] [id number] [address] [place] [address], [place] [address] Apr, [facility] [address] [id number] [address] [place] [address], [place] [address] Apr, [facility] [address] [id number] [address] [place] [address], [place] [address] 31 Mar, 2013 [facility] [address] [id number] [address] [place] [address], [place] [address] 31 Mar, 2013 [facility] [address] [id number] [address] [place] [address], [place] [address] Mar, [facility] [address] [id number] [address] [place] [address], [place] [address] 23 Mar, 2013 [facility] [address] [id number] [address] [place] [address], [place] [address] Mar, [facility] [address] [id number] [address] [place] [address], [place] [address] 19 Mar, 2013 [facility] [address] [id number] [address] [place] [address], [place] [address] 16 Mar, 2013 [facility] [address] [id number] [address] [place] [address], [place] [address] 16 Mar, 2013 [facility] [address] [id number] [address] [place] [address], [place] [address] 12 Mar, 2013 [facility] [address] [id number] [address] [place] [address], [place] [address] Mar, [facility] [address] [id number] [address] [place] [address], [place] [address] 25 Feb, 2013 [facility] [address] [id number] [address] [place] [address], [place] [address] 25 Feb, 2013 [facility] [address] [id number] [address] [place] [address], [place] [address] 25 Feb, 2013 [facility] [address] [id number] [address] [place] [address], [place] [address] 25 Feb, 2013 [facility] [address] [id number] [address] [place] [address], [place] [address] 14 Feb, 2013 [facility] [address] [id number] [address] [place] [address], [place] [address] 14 Feb, 2013 [facility] [address] [id number] [address] [place] [address], [place] [address] Feb, [facility] [address] [id number] [address] [place] [address], [place] [address] Feb, [facility] [address] [id number] [address] [place] [address], [place] [address] Feb, [facility] [address] [id number] [address] [place] [address], [place] [address] Feb, [facility] [address] [id number] [address] [place] [address], [place] [address] Jan, [facility] [address] [id number] [address] [place] [address], [place] [address] Jan, [facility] [address] [id number] [address] [place] [address], [place] [address] Jan, [facility] [address] [id number] [address] [place] [address], [place] [address] Jan, [facility] [address] [id number] [address] [place] [address], [place] [address] Jan, [facility] [address] [id number] [address] [place] [address], [place] [address] Jan, [facility] [address] [id number] [address] [place] [address], [place] [address] Jan, [facility] [address] [id number] [address] [place] [address], [place] [address] Jan, [facility] [address] [id number] [address] [place] [address], [place] [address] Jan, [facility] [address] [id number] [address] [place] [address], [place] [address] Dec, [facility] [address] [id number] [address] [place] [address], [place] [address] Dec, [facility] [address] [id number] [address] [place] [address], [place] [address] Dec, [facility] [address] [id number] [address] [place] [address], [place] [address] Dec, [facility] [address] [id number] [address] [place] [address], [place] [address] Nov, [facility] [address] [id number] [address] [place] [address], [place] [address] Nov, [facility] [address] [id number] [address] [place] [address], [place] [address] Nov, [facility] [address] [id number] [address] [place] [address], [place] [address] Nov, [facility] [address] [id number] [address] [place] [address], [place] [address] Nov, [facility] [address] [id number] [address] [place] [address], [place] [address] Nov, [facility] [address] [id number] [address] [place] [address], [place] [address] Oct, [facility] [address] [id number] [address] [place] [address], [place] [address] Oct, [facility] [address] [id number] [address] [place] [address], [place] [address] Oct, [facility] [address] [id number] [address] [place] [address], [place] [address] Oct, [facility] [address] [id number] [address] [place] [address], [place] [address] Sep, [facility] [address] [id number] [address] [place] [address], [place] [address] Sep, [facility] [address] [id number] [address] [place] [address], [place] [address] Sep, [facility] [address] [id number] [address] [place] [address], [place] [address] Sep, [facility] [address] [id number] [address] [place] [address], [place] [address] 10 Sep, 2012 [facility] [address] [id number] [address] [place] [address], [place] [address] August, [facility] [address] [id number] [address] [place] [address], [place] [address] 2012 [facility] [address] [id number] [address] [place] [address], [place] [address] Jul, [facility] [address] [id number] [address] [place] [address], [place] [address] Jul, [facility] [address] [id number] [address] [place] [address], [place] [address] 15 Jul, 2012 [facility] [address] [id number] [address] [place] [address], [place] [address] Jul, [facility] [address] [id number] [address] [place] [address], [place] [address] Jul, [facility] [address] [id number] [address] [place] [address], [place] [address] Jun, [facility] [address] [id number] [address] [place] [address], [place] [address] Jun, [facility] [address] [id number] [address] [place] [address], [place] [address] 15 Jun, 2012 [facility] [address] [id number] [address] [place] [address], [place] [address] Jun, [facility] [address] [id number] [address] [place] [address], [place] [address] Jun, [facility] [address] [id number] [address] [place] [address], [place] [address] May, [facility] [address] [id number] [address] [place] [address], [place] [address] May, [facility] [address] [id number] [address] [place] [address], [place] [address] May, [facility] [address] [id number] [address] [place] [address], [place] [address] May, [facility] [address] [id number] [address] [place] [address], [place] [address] May, [facility] [address] [id number] [address] [place] [address], [place] [address] May, [facility] [address] [id number] [address] [place] [address], [place] [address] May, [facility] [address] [id number] [address] [place] [address], [place] [address] May, [facility] [address] [id number] [address] [place] [address], [place] [address] May, [facility] [address] [id number] [address] [place] [address], [place] [address] Apr, [facility] [address] [id number] [address] [place] [address], [place] [address] Apr, [facility] [address] [id number] [address] [place] [address], [place] [address] Apr, [facility] [address] [id number] [address] [place] [address], [place] [address] Apr, [facility] [address] [id number] [address] [place] [address], [place] [address] Apr, [facility] [address] [id number] [address] [place] [address], [place] [address] Mar, [facility] [address] [id number] [address] [place] [address], [place] [address] Mar, [facility] [address] [id number] [address] [place] [address], [place] [address] Mar, [facility] [address] [id number] [address] [place] [address], [place] [address] Mar, [facility] [address] [id number] [address] [place] [address], [place] [address] 19 Mar, 2012 [facility] [address] [id number] [address] [place] [address], [place] [address] 19 Mar, 2012 [facility] [address] [id number] [address] [place] [address], [place] [address] 17 Mar, 2012 [facility] [address] [id number] [address] [place] [address], [place] [address] 17 Mar, 2012 [facility] [address] [id number] [address] [place] [address], [place] [address] 07 Mar, 2012 [facility] [address] [id number] [address] [place] [address], [place] [address] 07 Mar, 2012 [facility] [address] [id number] [address] [place] [address], [place] [address] 30 Feb, 2012 [facility] [address] [id number] [address] [place] [address], [place] [address] 30 Feb, 2012 [facility] [address] [id number] [address] [place] [address], [place] [address] 29 Feb, 2012 [facility] [address] [id number] [address] [place] [address], [place] [address] 29 Feb, 2012 [facility] [facility] [address] [id number] [address] [place] [address], [place] [address] 23 Feb, 2012 [facility] [address] [id number] [address] [place] [address], [place] [address] 23 Feb, 2012 [facility] [address] [id number] [address] [place] [address], [place] [address] 20 Feb, 2012 [facility] [address] [id number] [address] [place] [address], [place] [address] 20 Feb, 2012 [facility] [address] [id number] [address] [place] [address], [place] [address] 16 Feb, 2012 [facility] [address] [id number] [address] [place] [address], [place] [address] 16 Feb, 2012 [facility] [address] [id number] [address] [place] [address], [place] [address] 13 Feb, 2012 [facility] [address] [id number] [address] [place] [address], [place] [address] 13 Feb, 2012 [facility] [address] [id number] [address] [place] [address], [place] [address] 12 Feb, 2012 [facility] [address] [id number] [address] [place] [address], [place] [address] Feb, [facility] [address] [id number] [address] [place] [address], [place] [address] Feb, [facility] [address] [id number] [address] [place] [address], [place] [address] Feb, [facility] [address] [id number] [address] [place] [address], [place] [address] Feb, [facility] [address] [id number] [address] [place] [address] Feb, [facility] [address] [id number] [address] [place] [address], [place] [address] Jan, [facility] [address] [id number] [address] [place] [address] Jan, [facility] [address] [id number] [address] [place] [address] Jan, [facility] [address] [id number] [address] [place] [address] 31 Jan, 2012 [facility] [address] [id number] [address] [place] [address] 24 Jan, 2012 [facility] [address] [id number] [address] [place] [address] 24 Jan, 2012 [facility] [address] [id number] [address] [place] [address] 19 Jan, 2012 [facility] [address] [id number] [address] [place] [address] Jan, [facility] [address] [id number] [address] [place] [address], [place] [address] Jan, [facility] [address] [id number] [address] [place] [address], [place] [address] Jan, [facility] [address] [id number] [address] [place] [address], [place] [address] Dec, [facility] [address] [id number] [address] [place] [address], [place] [address] Dec, [facility] [address] [id number] [address] [place] [address], [place] [address] Dec, [facility] [address] [id number] [address] [place] [address], [place] [address] Dec, [facility] [address] [id number] [address] [place] [address], [place] [address] Nov, [facility] [address] [id number] [address] [place] [address], [place] [address] Nov, [facility] [address] [id number] [address] [place] [address], [place] [address] Nov, [facility] [address] [id number] [address] [place] [address], [place] [address] Nov, [facility] [address] [id number] [address] [place] [address], [place] [address] Nov, [facility] [address] [id number] [address] [place] [address], [place] [address] Nov, [facility] [address] [id number] [address] [place] [address], [place] [address] Oct, [facility] [address] [id number] [address] [place] [address], [place] [address] Oct, [facility] [address] [id number] [address] [place] [address], [place] [address] Oct, [facility] [address] [id number] [address] [place] [address], [place] [address] Oct, [facility] [address] [id number] [address] [place] [address], [place] [address] Oct, [facility] [address] [id number] [address] [place] [address], [place] [address] Sep, [facility] [address] [id number] [address] [place] [address], [place] [address] Sep, [facility] [address] [id number] [address] [place] [address], [place] [address] Sep, [facility] [address] [id number] [address] [place] [address], [place] [address] Sep, [facility] [address] [id number] [address] [place] [address], [place] [address] Sep, [facility] [address] [id number] [address] [place] [address], [place] [address] August, [facility] [address] [id number] [address] [place] [address], [place] [address] August, [facility] [address] [id number] [address] [place] [address], [place] [address] August, [facility] [address] [id number] [address] [place] [address], [place] [address] August, [facility] [address] [id number] [address] [place] [address], [place] [address] Jul, [facility] [address] [id number] [address] [place] [address], [place] [address] 24 Jul, 2011 [facility] [address] [id number] [address] [place] [address], [place] [address] Jul, [facility] [address] [id number] [address] [place] [address], [place] [address] Jul, [facility] [address] [id number] [address] [place] [address], [place] [address] 18 Jul, 2011 [facility] [address] [id number] [facility] [address] 12 Jul, 2011 [facility] [address] [id number] [address] [place] [address], [place] [address] 11 Jul, 2011 [facility] [address] [id number] [address] [place] [address], [place] [address] 10 Jul, 2011 [facility] [address] [id number] [address] [place] [address], [place] [address] 09 Jul, 2011 [facility] [address] [id number] [address] [place] [address], [place] [address] 07 Jul, 2011 [facility] [address] [id number] [address] [place] [address], [place] [address] 05 Jul, 2011 [facility] [address] [id number] [address] [place] [address], [place] [address] Jul, [facility] [address] [id number] [address] [place] [address], [place] [address] Jul, [facility] [address] [id number] [address] [place] [address], [place] [address] Jul, [facility] [address] [id number] [address] [place] [address], [place] [address] 28 Jun, 2011 [facility] [address] [id number] [address] [place] [address], [place] [address] 27 Jun, 2011 [facility] [address] [id number] [address] [place] [address], [place] [address] 20 Jun, 2011 [facility] [address] [id number] [address] [place] [address], [place] [address] 16 Jun, 2011 [facility] [address] [id number] [address] [place] [address], [place] [address] 27 May, 2011 [facility] [address] [id number] [address] [place] [address], [place] [address] 16 May, 2011 [facility] [address] [id number] [address] [place] [address], [place] [address] 09 May, 2011 [facility] [address] [id number] [address] [place] [address], [place] [address] Apr, [facility] [address] [id number] [address] [place] [address], [place] [address] 18 Apr, 2011 [facility] [address] [id number] [address] [place] [address], [place] [address] Apr, [facility] [address] [id number] [address] [place] [address], [place] [address] Apr, [facility] [address] [id number] [address] [place] [address], [place] [address] Apr, [facility] [address] [id number] [address] [place] [address], [place] [address] Mar, [facility] [address] [id number] [address] [place] [address], [place] [address] Mar, [facility] [address] [id number] [address] [place] [address], [place] [address] Mar, [facility] [address] [id number] [address] [place] [address], [place] [address] Mar, [facility] [address] [id number] [address] [place] [address], [place] [address] 16 Mar, 2011 [facility] [address] [id number] [address] [place] [address], [place] [address] Mar, [facility] [address] [id number] [address] [place] [address], [place] [address] Mar, [facility] [address] [id number] [address] [place] [address], [place] [address] Feb, [facility] [address] [id number] [address] [place] [address], [place] [address] Feb, [facility] [address] [id number] [address] [place] [address], [place] [address] Feb, [facility] [address] [id number] [address] [place] [address], [place] [address] 22 Feb, 2011 [facility] [address] [id number] [address] [place] [address], [place] [address] 16 Feb, 2011 [facility] [address] [id number] [address] [place] [address], [place] [address] 14 Feb, 2011 [facility] [address] [id number] [address] [place] [address], [place] [address] 10 Feb, 2011 [facility] [address] [id number] [address] [place] [address], [place] [address] 31 Jan, 2011 [facility] [address] [id number] [address] [place] [address], [place] [address] 31 Jan, 2011 [facility] [address] [id number] [address] [place] [address], [place] [address] 31 Jan, 2011 [facility] [address] [id number] [address] [place] [address], [place] [address] 18 Jan, 2011 [facility] [address] [id number] [address] [place] [address], [place] [address] 17 Jan, 2011 [facility] [address] [id number] [address] [place] [address], [place] [address] 17 Jan, 2011 [facility] [address] [id number] [address] [place] [address], [place] [address] 17 Jun, 2010 [facility] [address] [id number] [address] [place] [address] 30 Mar, 2010 [facility] [address] [id number] [address] [place] [address], [place] [address] 20 Mar, 2010 [facility] [address] [id number] [address] [place] [address], [place] [address] 14 Mar, 2010 [facility] [address] [id number] [address] [place] [address], [place] [address] 14 Mar, 2010 [facility] [address] [id number] [address] [place] [address] 13 Mar, 2010 [facility] [address] [id number] [address] [place] [address], [place] [address] 07 Mar, 2010 [facility] [address] [id number] [address] [place] [address] 02 Mar, 2010 [facility] [address] [id number] [address] [place] [address], [place] [address] Mar, [facility] [address] [id number] [address] [place] [address] 30 Feb, 2010 [facility] [address] [id number] [address] [place] [address], [place] [address] 29 Feb, 2010 [facility] [address] [id number] [address] [place] [address] 17 Feb, 2010 [facility] [address] [id number] [address] [place] [address] 17 Feb, 2010 [facility] [address] [id number] [address] [place] [address], [place] [address] 16 Feb, 2010 [facility] [address] [id number] [address] [place] [address] 08 Feb, 2010 [facility] [address] [id number] [address] [place] [address] Feb, [facility] [address] [id number] [address] [place] [address] Feb, [facility] [address] [id number] [address] [place] [address] Jan, [facility] [address] [id number] [address] [place] [address] Jan, [facility] [address] [id number] [address] [place] [address] Jan, [facility] [address] [id number] [address] [place] [address] 18 Jan, 2010 [facility] [address] [id number] [address] [place] [address] 29 Mar, 2009 [facility] [address] [id number] [address] [place] [address] Mar, [facility] [address] [id number] [address] [place] [address] Mar, [facility] [address] [id number] [address] [place] [address] Mar, [facility] [address] [id number] [address] [place] [id number] 14 Mar, 2009 [facility] [address] [id number] [address] [place] [address] Mar, [facility] [address] [id number] [address] [place] [address] Feb, [facility] [address] [id number] [address] [place] [address] Feb, [facility] [address] [id number] [address] [place] [address] Jan, [facility] [address] [id number] [address] [place] [address] Sep, [facility] [address] [id number] [address] [place] [address] May, IMMUNIZATIONS No Known Immunizations SOCIAL HISTORY [...] Surgical History Left ear surgery Hospitalization History [facility] in [place]- Spontane ous Pneumothorax Hospitalization History [facility]- Colon resection Hospitalization History [facility] - diarrhea/ couldnt urin ate nov 2017 Hospitalization History pain /hip to foot right side 10/16/19 19
--- OUTSIDE RECORDS SUMMARY | 2019-08-28 09:17 | XMS REPORT ---
Author Author Dixon Lundberg Doctor Organization [facility] Address Unknown Phone Unavailable Care Team Providers Care Javascript Engineer Name Role Phone Migration, Doctor Unavailable Unavailable PROBLEMS Type Condition ICD9-CM Code FIF71-DB Code Onset Dates Condition S tatus SNOMED Code Problem Insomnia G47.00 Active 089269224 Problem Anxiety F41.9 Active 27419262 Problem HTN (hypertension) I10 Active 3 7079617 Problem Hyperlipidemia E78.5 Active 22967 004 Problem Thoracic back pain, unspecif ied back pain laterality, unspecified chronicity M54.6 Active 873711751 Problem Vitamin D deficiency E55.9 Active 32913894 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 95062458 Problem Chronic pain G89.29 Active 4799455 1 Problem Schizophrenia, unspecified type F20.9 Active 40166808 Problem Constipation K59.00 Active 2442908 8 Problem Environmental allergies Z91.09 Active 571317743 Problem Primary insomnia F51.01 Active 397 2004 Problem Chronic kidney disease, stage III (moderate) N18.3 Active 319432487 Problem Vision loss H54.7 Active 58996390 1 ALLERGIES No Information ENCOUNTERS Encounter Location Date Diagnosis [place] [address] [facility] [id number] [address] [place] [address] Oct, [facility] [address] [facility] [id number] [address] [place] [address] Oct, Schizophrenia, unspecified t ype F20.9 and Acute kidney injury N17.9 [facility] [address] [facility] [id number] [address] [place] [address] Oct, [facility] [address] [facility] [id number] [address] [place] [address] Oct, [place] [address] [address] [facility] [id number] [address] [place] [id number] Oct, Thoracic back pain, unspecif ied back pain laterality, unspecified chronicity M54.6 [facility] [address] [id number] [address] [place] [address] Oct, [facility] [address] [id number] [address] [place] [phone] Oct, [facility] [address] [id number] [address] [place] [address] Sep, Anxiety F41.9 [facility] [address] [id number] [address] [place] [address] Sep, [facility] [address] [id number] [address] [place] [address] Sep, Thoracic back pain, unspecif ied back pain laterality, unspecified chronicity M54.6 [facility] [address] [id number] [address] [place] [phone] Sep, [facility] [address] [id number] [address] [place] [phone] Sep, [facility] [address] [id number] [address] [place] [address] Sep, [facility] [address] [id number] [address] [place] [address] Sep, [facility] [address] [id number] [address] [place] [address] Sep, [facility] [address] [id number] [address] [place] [address] Sep, [facility] [address] [id number] [address] [place] [address] Sep, Chronic pain G89.29 ; Chroni c kidney disease, stage III (moderate) N18.3 ; Hyperlipidemia E78.5 and Insomnia G47.00 [facility] [address] [id number] [address] [place] [address] Sep, Thoracic back pain, unspecif ied back pain laterality, unspecified chronicity M54.6 [facility] [address] [id number] [address] [place] [address] August, Anxiety F41.9 [facility] [address] [id number] [address] [place] [address] August, Thoracic back pain, unspecif ied back pain laterality, unspecified chronicity M54.6 and Anxiety F41.9 [facility] [address] [id number] [address] [place] [address] August, 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 [facility] [address] [id number] [address] [place] [address] August, 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 [facility] [address] [id number] [address] [place] [address] August, [facility] [address] [id number] [address] [place] [address] August, [facility] [address] [id number] [address] [place] [address] August, Thoracic back pain, unspecif ied back pain laterality, unspecified chronicity M54.6 [facility] [address] [id number] [address] [place] [address] August, [facility] [address] [id number] [address] [place] [address] August, Anxiety F41.9 and Thoracic b ack pain, unspecified back pain laterality, unspecified chronicity M54.6 [facility] [address] [id number] [address] [place] [address] Jul, [facility] [address] [facility] [id number] [address] [place] [address] Jul, Thoracic back pain, unspecif ied back pain laterality, unspecified chronicity M54.6 [facility] [address] [id number] [address] [place] [address] Jun, Anxiety F41.9 and Thoracic b ack pain, unspecified back pain laterality, unspecified chronicity M54.6 [facility] [address] [id number] [address] [place] [address] 08 Jun, 2018 Anxiety F41.9 and Thoracic b ack pain, unspecified back pain laterality, unspecified chronicity M54.6 [facility] [address] [id number] [address] [place] [address] Jun, Thoracic back pain, unspecif ied back pain laterality, unspecified chronicity M54.6 [place] [address] [id number] [address] [place] [address] Jun, Anxiety F41.9 and Thoracic b ack pain, unspecified back pain laterality, unspecified chronicity M54.6 [place] [address] [id number] [address] [place] [address] May, [facility] [address] [id number] [address] [place] [address] May, [facility] [address] [id number] [address] [place] [address] May, [facility] [address] [id number] [address] [place] [address] May, Anxiety F41.9 and Encounter for medication monitoring Z51.81 [place] [address] [id number] [address] [place] [address] May, Anxiety F41.9 and Thoracic b ack pain, unspecified back pain laterality, unspecified chronicity M54.6 [facility] [address] [id number] [address] [place] [address] Apr, Hyperlipidemia 272.4 [facility] [address] [id number] [address] [place] [address] Apr, Chronic pain G89.29 ; Anxiet y F41.9 ; Cervical radiculopathy M54.12 and Vision loss H54.7 [facility] [address] [id number] [address] [place] [address] Apr, [facility] [address] [id number] [address] [place] [address] Apr, Anxiety F41.9 and Thoracic b ack pain, unspecified back pain laterality, unspecified chronicity M54.6 [facility] [address] [id number] [address] [place] [address] Mar, [facility] [address] [id number] [address] [place] [address] Mar, Anxiety F41.9 and Thoracic b ack pain, unspecified back pain laterality, unspecified chronicity M54.6 [facility] [address] [id number] [address] [place] [address] Feb, Anxiety F41.9 and Thoracic b ack pain, unspecified back pain laterality, unspecified chronicity M54.6 [facility] [address] [id number] [address] [place] [address] Feb, Thoracic back pain, unspecif ied back pain laterality, unspecified chronicity M54.6 [facility] [address] [id number] [address] [place] [address] Jan, [facility] [address] [id number] [address] [place] [address] Jan, Anxiety F41.9 and Thoracic b ack pain, unspecified back pain laterality, unspecified chronicity M54.6 [facility] [address] [id number] [address] [place] [address] Dec, Diarrhea of presumed infecti ous origin R19.7 [facility] [address] [id number] [address] [place] [address] Dec, Diarrhea of presumed infecti ous origin R19.7 [facility] [address] [id number] [address] [place] [id number] 18 Dec, 2017 Thoracic back pain, unspecif ied back pain laterality, unspecified chronicity M54.6 [place] [address] [id number] [address] [place] [id number] 17 Dec, 2017 [place] [address] [facility] [id number] [address] [place] [address] 17 Dec, 2017 Anxiety F41.9 and Thoracic b ack pain, unspecified back pain laterality, unspecified chronicity M54.6 [place] [address] [id number] [address] [place] [id number] Dec, Diarrhea of presumed infecti ous origin R19.7 [place] [address] [facility] [id number] [address] [place] [address] Dec, [place] [address] [facility] [id number] [address] [place] [address] Dec, Anxiety F41.9 and Thoracic b ack pain, unspecified back pain laterality, unspecified chronicity M54.6 [place] [address] [facility] [id number] [address] [place] [address] Dec, Anxiety F41.9 and Thoracic b ack pain, unspecified back pain laterality, unspecified chronicity M54.6 [facility] [employer] [address] [place] [id number] Dec, Diarrhea of presumed infectious origin R 19.7 ; Anxiety F41.9 ; Thoracic back pain, unspecified back pain laterality, unspecified chronicity M54.6 and HTN (hypertension) I10 [place] [address] [facility] [id number] [address] [place] [address] Dec, Anxiety F41.9 [facility] [address] [place] [id number] Dec, Anxiety F41.9 ; Diarrhea of presumed inf ectious origin R19.7 ; Generalized abdominal pain R10.84 and Localized edema R60.0 [place] [address] [address] [facility] [id number] [address] [place] [address] Nov, [facility] [address] [place] [id number] Nov, Anxiety F41.9 ; Urinary retention R33.9 ; Diarrhea of presumed infectious origin R19.7 ; Weakness R53.1 ; Acute kidney failure, unspecified N17.9 ; Chronic kidney disease, stage III (moderate) N18.3 and Thoracic back pain, unspecified back pain laterality, unspecified chronicity M54.6 [place] [address] [address] Oct, Thoracic back pain, unspecif ied back pain laterality, unspecified chronicity M54.6 and Anxiety F41.9 [place] [address] [address] Sep, Thoracic back pain, unspecif ied back pain laterality, unspecified chronicity M54.6 and Anxiety F41.9 [place] [address] [address] Sep, Thoracic back pain, unspecif ied back pain laterality, unspecified chronicity M54.6 ; Anxiety F41.9 and Encounter for medication monitoring Z51.81 [place] [address] [address] August, [place] [address] [address] August, Thoracic back pain, unspecif ied back pain laterality, unspecified chronicity M54.6 and Anxiety F41.9 [place] [address] [address] August, Hyperlipidemia E78.5 and HTN (hypertension) I10 [place] [address] [address] August, [place] [address] [place] [id number] [address] [place] [address] August, Medicare welcome exam Z00.00 ; Chronic kidney failure N18.9 ; Anxiety F41.9 ; Chronic pain G89.29 ; Insomnia G47.00 ; Hyperlipidemia E78.5 ; HTN (hypertension) I10 and Thoracic back pain, unspecified back pain laterality, unspecified chronicity M54.6 [facility] [address] [facility] [id number] [address] [place] [address] Jul, [facility] [address] [place] [id number] [address] [place] [address] Jul, [place] [address] [place] [id number] [place] [address] Jul, [place] [address] [place] [id number] [place] [address] Jul, Anxiety F41.9 [place] [address] [place] [id number] [place] [address] Jul, Thoracic back pain, unspecif ied back pain laterality, unspecified chronicity M54.6 and Anxiety F41.9 [place] [address] [address] [place] [id number] [address] [place] [address] Jun, Thoracic back pain, unspecif ied back pain laterality, unspecified chronicity M54.6 and Anxiety F41.9 [place] [address] [address] [place] [id number] [address] [place] [address] May, Thoracic back pain, unspecif ied back pain laterality, unspecified chronicity M54.6 and Anxiety F41.9 [place] [address] [address] [place] [id number] [address] [place] [address] Apr, Thoracic back pain, unspecif ied back pain laterality, unspecified chronicity M54.6 and Anxiety F41.9 [place] [address] [place] [id number] [place] [address] Mar, [place] [address] [place] [id number] [place] [address] Mar, Thoracic back pain, unspecif ied back pain laterality, unspecified chronicity M54.6 and Anxiety F41.9 [place] [address] [place] [id number] [address] [place] [address] Mar, Thoracic back pain, unspecif ied back pain laterality, unspecified chronicity M54.6 ; HTN (hypertension) I10 ; Hyperlipidemia E78.5 and Anxiety F41.9 [place] [address] [place] [id number] [address] [place] [address] Feb, Thoracic back pain, unspecif ied back pain laterality, unspecified chronicity M54.6 and Anxiety F41.9 [place] [address] [place] [id number] [place] [address] Nov, [place] [address] [address] Oct, [place] [address] [place] [id number] [place] [address] Oct, Thoracic back pain, unspecif ied back pain laterality, unspecified chronicity M54.6 [place] [address] [address] Oct, HTN (hypertension) I10 ; Con stipation K59.00 ; Hyperlipidemia E78.5 ; Thoracic back pain, unspecified back pain laterality, unspecified chronicity M54.6 ; Chronic pain G89.29 ; Anxiety F41.9 ; Chronic kidney failure N18.9 ; Environmental allergies Z91.09 ; Vitamin D deficiency E55.9 and Primary insomnia F51.01 [place] [id number] [place] [address] Sep, Anxiety F41.9 [place] [address] [place] [id number] [place] [address] Sep, [place] [address] [address] August, Anxiety F41.9 [place] [address] [place] [id number] [place] [address] August, [place] [address] [address] [facility] [id number] [address] [place] [address] Jul, Anxiety F41.9 [facility] [address] [facility] [id number] [address] [place] [address] Jul, [facility] [address] [facility] [id number] [address] [place] [address] Jun, Anxiety F41.9 [facility] [address] [facility] [id number] [address] [place] [address] Jun, [facility] [address] [facility] [id number] [address] [place] [address] May, [facility] [address] [facility] [id number] [address] [place] [address] May, [facility] [address] [place] [id number] [address] [place] [address] May, [facility] [address] [facility] [id number] [address] [place] [address] Apr, [facility] [address] [facility] [id number] [address] [place] [address] Apr, [facility] [address] [place] [id number] [address] [place] [address] Apr, Anxiety F41.9 [facility] [address] [place] [id number] [address] [place] [address] Apr, Anxiety F41.9 [facility] [address] [facility] [id number] [address] [place] [address] Apr, [facility] [address] [place] [id number] [address] [place] [address] Mar, HTN (hypertension) I10 ; Phillip mor R25.1 ; Hypercholesterolemia E78.0 ; Constipation K59.00 ; Chronic pain G89.29 ; Hyperlipidemia E78.5 ; Insomnia G47.00 ; Anxiety F41.9 and Thoracic back pain, unspecified back pain laterality, unspecified chronicity M54.6 [facility] [address] [id number] [address] [place] [address] Mar, Tremor R25.1 ; HTN (hyperten stas) I10 ; Hypercholesterolemia E78.0 ; Constipation K59.00 ; Chronic pain G89.29 ; Hyperlipidemia E78.5 ; Insomnia G47.00 ; Anxiety F41.9 and Thoracic back pain, unspecified back pain laterality, unspecified chronicity M54.6 [facility] [address] [id number] [address] [place] [address] Mar, [facility] [address] [id number] [address] [place] [address] Mar, [facility] [address] [facility] [id number] [address] [place] [address] Feb, [facility] [address] [facility] [id number] [address] [place] [address] Jan, [facility] [address] [facility] [id number] [address] [place] [address] Jan, [facility] [address] [facility] [id number] [address] [place] [address] Dec, [facility] [address] [facility] [id number] [address] [place] [address] Nov, [facility] [address] [facility] [id number] [address] [place] [address] Nov, [facility] [address] [facility] [id number] [address] [place] [address] Oct, Anxiety F41.9 [facility] [address] [facility] [id number] [address] [place] [address] Oct, Chronic pain G89.29 [facility] [address] [facility] [id number] [address] [place] [address] Sep, [facility] [address] [facility] [id number] [address] [place] [address] Sep, [facility] [address] [facility] [id number] [address] [place] [address] Sep, [facility] [address] [facility] [id number] [address] [place] [address] Sep, [facility] [address] [facility] [id number] [address] [place] [address] Sep, Chronic pain syndrome G89.4 [place] [address] [facility] [id number] [address] [place] [address] Sep, HTN (hypertension) I10 ; Chr onic pain G89.29 ; Hypercholesterolemia E78.0 ; Chronic kidney failure N18.9 ; Constipation, unspecified constipation type K59.00 ; Anxiety F41.9 and Thoracic back pain, unspecified back pain laterality, unspecified chronicity M54.6 [place] [address] [facility] [id number] [address] [place] [address] August, Chronic pain syndrome G89.4 [place] [address] [facility] [id number] [address] [place] [address] August, Chronic pain syndrome G89.4 [place] [address] [facility] [id number] [address] [place] [address] Jul, Anxiety disorder, unspecifie d F41.9 and Chronic pain syndrome G89.4 [place] [address] [facility] [id number] [address] [place] [address] Jul, Insomnia, unspecified G47.00 and Chronic pain syndrome G89.4 [facility] [address] [facility] [id number] [address] [place] [address] Jul, Allergic rhinitis J30.9 [facility] [address] [facility] [id number] [address] [place] [address] Jul, Constipation, unspecified K5 9.00 [facility] [address] [facility] [id number] [address] [place] [address] Jul, [facility] [address] [facility] [id number] [address] [place] [address] Jun, [facility] [address] [id number] [address] [place] [address] Jun, [facility] [address] [id number] [address] [place] [address] Jun, [facility] [address] [id number] [address] [place] [address] Jun, [facility] [address] [id number] [address] [place] [address] Jun, [facility] [address] [id number] [address] [place] [address] Jun, [facility] [address] [facility] [id number] [address] [place] [address] May, [facility] [address] [facility] [id number] [address] [place] [address] May, [facility] [address] [facility] [id number] [address] [place] [address] May, Anxiety F41.9 ; Insomnia G47 .00 ; Hyperlipidemia E78.5 ; Chronic pain G89.29 ; HTN (hypertension) I10 ; Environmental allergies V15.09 and Constipation 564.00 [facility] [address] [facility] [id number] [address] [place] [address] Apr, [facility] [address] [facility] [id number] [address] [place] [id number] Apr, [facility] [address] [facility] [id number] [address] [place] [id number] Apr, [facility] [address] [facility] [id number] [address] [place] [id number] Mar, [facility] [address] [facility] [id number] [address] [place] [id number] Mar, [facility] [address] [facility] [id number] [address] [place] [id number] Mar, [facility] [address] [id number] Feb, [facility] [address] [id number] Feb, [facility] [address] [id number] Feb, [facility] [address] [id number] Jan, HTN (hypertension) I10 ; Con stipation K59.00 ; Chronic pain G89.29 ; Hyperlipidemia E78.5 ; Hypercholesterolemia E78.0 ; Insomnia G47.00 and Anxiety F41.9 [place] [address] [address] Jan, [place] [address] [address] Dec, [facility] [address] [address] Nov, [address] [address] Oct, Chronic kidney disease, unsp ecified 585.9 ; Chronic pain syndrome 338.4 ; Hyperlipidemia 272.4 and Essential hypertension 401.[address] [address] Oct, Chronic kidney disease 585.9 [facility] [address] [address] Oct, [facility] [address] [place] [address] Oct, Chronic kidney disease, unsp ecified 585.9 ; Hypercalcemia 275.42 ; Hyperlipidemia 272.4 ; Essential hypertension 401.9 ; Chronic pain syndrome 338.4 ; Insomnia 780.52 ; Constipation 564.00 ; Environmental allergies V15.09 and Anxiety 300.00 [facility] [address] [id number] [address] [place] [address] 15 Oct, 2014 Chronic kidney disease 585.9 [facility] [address] [id number] [address] [place] [address] 15 Oct, 2014 [facility] [address] [id number] [address] [place] [address] 14 Oct, 2014 Chronic kidney disease 585.9 and Hyperlipidemia 272.4 [facility] [address] [id number] [address] [place] [address] Oct, [facility] [address] [id number] [address] [place] [address] Oct, [facility] [address] [id number] [address] [place] [address] 18 Sep, 2014 [facility] [address] [id number] [address] [place] [address] Sep, [facility] [address] [id number] [address] [place] [address] Sep, Chronic kidney disease 585.9 and Hyperlipidemia 272.4 [facility] [address] [id number] [address] [place] [address] Sep, [facility] [address] [id number] [address] [place] [address] August, [facility] [address] [id number] [address] [place] [address] August, [facility] [address] [id number] [address] [place] [address] Jul, [facility] [address] [id number] [address] [place] [address] 13 Jul, 2014 [facility] [address] [id number] [address] [place] [address] Jun, [facility] [address] [id number] [address] [place] [address], [place] [address] Jun, [facility] [address] [id number] [address] [place] [address], [place] [address] Jun, [facility] [address] [id number] [address] [place] [address], [place] [address] Jun, [facility] [address] [id number] [address] [place] [address], [place] [address] Jun, [facility] [address] [id number] [address] [place] [address], [place] [address] Jun, [facility] [address] [id number] [address] [place] [address], [place] [address] Jun, [facility] [address] [id number] [address] [place] [address], [place] [address] Jun, [facility] [address] [id number] [address] [place] [address], [place] [address] 16 May, 2014 [facility] [address] [id number] [address] [place] [address], [place] [address] May, [facility] [address] [id number] [address] [place] [address], [place] [address] May, [facility] [address] [id number] [address] [place] [address], [place] [address] May, [facility] [address] [id number] [address] [place] [address], [place] [address] Apr, [facility] [address] [id number] [address] [place] [address], [place] [address] Apr, [facility] [address] [id number] [address] [place] [address], [place] [address] Apr, [facility] [address] [id number] [address] [place] [address], [place] [address] Apr, [facility] [address] [id number] [address] [place] [address], [place] [address] Apr, [facility] [address] [id number] [address] [place] [address], [place] [address] Apr, [facility] [address] [id number] [address] [place] [address], [place] [address] Apr, [facility] [address] [id number] [address] [place] [address], [place] [address] Apr, [facility] [address] [id number] [address] [place] [address], [place] [address] Apr, [facility] [address] [id number] [address] [place] [address], [place] [address] Apr, [facility] [address] [id number] [address] [place] [address], [place] [address] Apr, [facility] [address] [id number] [address] [place] [address], [place] [address] Mar, [facility] [address] [id number] [address] [place] [address], [place] [address] Mar, [facility] [address] [id number] [address] [place] [address], [place] [address] Feb, [facility] [address] [id number] [address] [place] [address], [place] [address] Feb, [facility] [address] [id number] [address] [place] [address], [place] [address] Feb, [facility] [address] [id number] [address] [place] [address], [place] [address] Feb, [facility] [address] [id number] [address] [place] [address], [place] [address] Feb, [facility] [address] [id number] [address] [place] [address], [place] [address] Feb, [facility] [address] [id number] [address] [place] [address], [place] [address] Feb, [facility] [address] [id number] [address] [place] [address] Feb, [facility] [address] [id number] [address] [place] [address], [place] [address] Feb, [facility] [address] [id number] [address] [place] [address], [place] [address] Feb, [facility] [address] [id number] [address] [place] [address], [place] [address] Jan, [facility] [address] [id number] [address] [place] [address], [place] [address] Jan, [facility] [address] [id number] [address] [place] [address], [place] [address] Jan, [facility] [address] [id number] [address] [place] [address], [place] [address] Jan, [facility] [address] [id number] [address] [place] [address], [place] [address] Jan, [facility] [address] [id number] [address] [place] [address], [place] [address] Jan, [facility] [address] [id number] [address] [place] [address], [place] [address] Jan, [facility] [address] [id number] [address] [place] [address], [place] [address] Jan, [facility] [address] [id number] [address] [place] [address] 16 Jan, 2014 [facility] [address] [id number] [address] [place] [address] Jan, [facility] [address] [id number] [address] [place] [address], [place] [address] Jan, [facility] [address] [id number] [address] [place] [address], [place] [address] Dec, [facility] [address] [id number] [address] [place] [address], [place] [address] Dec, [facility] [address] [id number] [address] [address] 19 Dec, 2013 [facility] [address] [id number] [address] [address] 19 Dec, 2013 [facility] [address] [id number] [address] [place] [address], [place] [address] 18 Dec, 2013 [facility] [address] [id number] [address] [place] [address], [place] [address] 18 Dec, 2013 [facility] [address] [id number] [address] [place] [address], [place] [address] Dec, 2013 [facility] [address] [id number] [address] [place] [address], [place] [address] Dec, [facility] [address] [id number] [address] [place] [address], [place] [address] Nov, [facility] [address] [id number] [address] [place] [address], [place] [address] Nov, [facility] [address] [id number] [address] [place] [address], [place] [address] Nov, [facility] [address] [id number] [address] [place] [address], [place] [address] Nov, [facility] [address] [id number] [address] [place] [address], [place] [address] Nov, [facility] [address] [id number] [address] [place] [address], [place] [address] Nov, [facility] [address] [id number] [address] [place] [address], [place] [address] Nov, [facility] [address] [id number] [address] [place] [address], [place] [address] Nov, [facility] [address] [id number] [address] [place] [address], [place] [address] Oct, [facility] [address] [id number] [address] [place] [address], [place] [address] Oct, [facility] [address] [id number] [address] [address] Oct, [facility] [address] [id number] [address] [place] [address], [place] [address] Oct, [facility] [address] [id number] [address] [place] [address], [place] [address] Sep, [facility] [address] [id number] [address] [place] [address], [place] [address] Sep, [facility] [address] [id number] [address] [place] [address], [place] [address] Sep, [facility] [address] [id number] [address] [place] [address], [place] [address] Sep, [facility] [address] [id number] [address] [place] [address], [place] [address] Sep, [facility] [address] [id number] [address] [place] [address], [place] [address] Sep, [facility] [address] [id number] [address] [place] [address], [place] [address] Sep, [facility] [address] [id number] [address] [place] [address], [place] [address] Sep, [facility] [address] [id number] [address] [place] [address], [place] [address] August, [facility] [address] [id number] [address] [place] [address], [place] [address] August, [facility] [address] [id number] [address] [place] [address], [place] [address] August, [facility] [address] [id number] [address] [place] [address], [place] [address] August, [facility] [address] [id number] [address] [place] [address], [place] [address] August, [facility] [address] [id number] [address] [place] [address], [place] [address] August, [facility] [address] [id number] [address] [place] [address], [place] [address] August, [facility] [address] [id number] [address] [place] [address], [place] [address] August, [facility] [address] [id number] [address] [place] [address], [place] [address] August, [facility] [address] [id number] [address] [place] [address], [place] [address] August, [facility] [address] [id number] [address] [place] [address], [place] [address] Jul, [facility] [address] [id number] [address] [place] [address], [place] [address] Jul, [facility] [address] [id number] [address] [place] [address], [place] [address] Jul, [facility] [address] [id number] [address] [place] [address], [place] [address] Jul, [facility] [address] [id number] [address] [place] [address], [place] [address] Jul, [facility] [address] [id number] [address] [place] [address], [place] [address] Jul, [facility] [address] [id number] [address] [place] [address], [place] [address] Jul, [facility] [address] [id number] [address] [place] [address], [place] [address] Jul, [facility] [address] [id number] [address] [place] [address], [place] [address] Jun, [facility] [address] [id number] [address] [place] [address], [place] [address] Jun, [facility] [address] [id number] [address] [place] [address], [place] [address] Jun, [facility] [address] [id number] [address] [address] Jun, [facility] [address] [id number] [address] [place] [address], [place] [address] Jun, [facility] [address] [id number] [address] [place] [address], [place] [address] Jun, [facility] [address] [id number] [address] [place] [address], [place] [address] May, [facility] [address] [id number] [address] [place] [address], [place] [address] May, [facility] [address] [id number] [address] [place] [address], [place] [address] May, [facility] [address] [id number] [address] [place] [address], [place] [address] May, [facility] [address] [id number] [address] [place] [address], [place] [address] May, [facility] [address] [id number] [address] [place] [address], [place] [address] May, [facility] [address] [id number] [address] [place] [address], [place] [address] May, [facility] [address] [id number] [address] [place] [address], [place] [address] Apr, [facility] [address] [id number] [address] [place] [address], [place] [address] Apr, [facility] [address] [id number] [address] [place] [address], [place] [address] Apr, [facility] [address] [id number] [address] [place] [address], [place] [address] Apr, [facility] [address] [id number] [address] [place] [address], [place] [address] Apr, [facility] [address] [id number] [address] [place] [address], [place] [address] 10 Apr, 2013 [facility] [address] [id number] [address] [place] [address], [place] [address] 31 Mar, 2013 [facility] [address] [id number] [address] [place] [address], [place] [address] Mar, [facility] [address] [id number] [address] [place] [address], [place] [address] Mar, [facility] [address] [id number] [address] [place] [address], [place] [address] Mar, [facility] [address] [id number] [address] [place] [address], [place] [address] Mar, [facility] [address] [id number] [address] [place] [address], [place] [address] Mar, [facility] [address] [id number] [address] [place] [address], [place] [address] 16 Mar, 2013 [facility] [address] [id number] [address] [place] [address], [place] [address] 16 Mar, 2013 [facility] [address] [id number] [address] [place] [address], [place] [address] Mar, [facility] [address] [id number] [address] [place] [address], [place] [address] Mar, [facility] [address] [id number] [address] [place] [address], [place] [address] Feb, [facility] [address] [id number] [address] [place] [address], [place] [address] Feb, [facility] [address] [id number] [address] [place] [address], [place] [address] Feb, [facility] [address] [id number] [address] [place] [address], [place] [address] 25 Feb, 2013 [facility] [address] [id number] [address] [place] [address], [place] [address] 14 Feb, 2013 [facility] [address] [id number] [address] [place] [address], [place] [address] 14 Feb, 2013 [facility] [address] [id number] [address] [place] [address], [place] [address] Feb, [facility] [address] [id number] [address] [place] [address], [place] [address] Feb, [facility] [address] [id number] [address] [place] [address], [place] [address] Feb, [facility] [address] [id number] [address] [place] [address], [place] [address] Feb, [facility] [address] [id number] [address] [place] [address], [place] [address] Jan, [facility] [address] [id number] [address] [place] [address], [place] [address] Jan, [facility] [address] [id number] [address] [place] [address], [place] [address] Jan, [facility] [address] [id number] [address] [place] [address], [place] [address] Jan, [facility] [address] [id number] [address] [place] [address], [place] [address] Jan, [facility] [address] [id number] [address] [place] [address], [place] [address] Jan, [facility] [address] [id number] [address] [place] [address], [place] [address] Jan, [facility] [address] [id number] [address] [place] [address], [place] [address] Jan, [facility] [address] [id number] [address] [place] [address], [place] [address] Jan, [facility] [address] [id number] [address] [place] [address], [place] [address] 25 Dec, 2012 [facility] [address] [id number] [address] [place] [address], [place] [address] Dec, [facility] [address] [id number] [address] [place] [address], [place] [address] Dec, [facility] [address] [id number] [address] [place] [address], [place] [address] Dec, [facility] [address] [id number] [address] [place] [address], [place] [address] Nov, [facility] [address] [id number] [address] [place] [address], [place] [address] Nov, [facility] [address] [id number] [address] [place] [address], [place] [address] Nov, [facility] [address] [id number] [address] [place] [address], [place] [address] Nov, [facility] [address] [id number] [address] [place] [address], [place] [address] Nov, [facility] [address] [id number] [address] [place] [address], [place] [address] Nov, [facility] [address] [id number] [address] [place] [address], [place] [address] Oct, [facility] [address] [id number] [address] [place] [address], [place] [address] Oct, [facility] [address] [id number] [address] [place] [address], [place] [address] Oct, [facility] [address] [id number] [address] [place] [address], [place] [address] Oct, [facility] [address] [id number] [address] [place] [address], [place] [address] Sep, [facility] [address] [id number] [address] [place] [address], [place] [address] Sep, [facility] [address] [id number] [address] [place] [address], [place] [address] Sep, [facility] [address] [id number] [address] [place] [address], [place] [address] 14 Sep, 2012 [facility] [address] [id number] [address] [place] [address], [place] [address] 10 Sep, 2012 [facility] [address] [id number] [address] [place] [address], [place] [address] 17 Aug, 2012 [facility] [address] [id number] [address] [place] [address], [place] [address] 2012 [facility] [address] [id number] [address] [place] [address], [place] [address] 19 Jul, 2012 [facility] [address] [id number] [address] [place] [address], [place] [address] 19 Jul, 2012 [facility] [address] [id number] [address] [place] [address], [place] [address] 15 Jul, 2012 [facility] [address] [id number] [address] [place] [address], [place] [address] 09 Jul, 2012 [facility] [address] [id number] [address] [place] [address], [place] [address] 08 Jul, 2012 [facility] [address] [id number] [address] [place] [address], [place] [address] 26 Jun, 2012 [facility] [address] [id number] [address] [place] [address], [place] [address] 20 Jun, 2012 [facility] [address] [id number] [address] [place] [address], [place] [address] 15 Jun, 2012 [facility] [address] [id number] [address] [place] [address], [place] [address] 06 Jun, 2012 [facility] [address] [id number] [address] [place] [address], [place] [address] Jun, [facility] [address] [id number] [address] [place] [address], [place] [address] 28 May, 2012 [facility] [address] [id number] [address] [place] [address], [place] [address] May, [facility] [address] [id number] [address] [place] [address], [place] [address] May, [facility] [address] [id number] [address] [place] [address], [place] [address] May, [facility] [address] [id number] [address] [place] [address], [place] [address] May, [facility] [address] [id number] [address] [place] [address], [place] [address] May, [facility] [address] [id number] [address] [place] [address], [place] [address] May, [facility] [address] [id number] [address] [place] [address], [place] [address] May, [facility] [address] [id number] [address] [place] [address], [place] [address] May, [facility] [address] [id number] [address] [place] [address], [place] [address] Apr, [facility] [address] [id number] [address] [place] [address], [place] [address] Apr, [facility] [address] [id number] [address] [place] [address], [place] [address] Apr, [facility] [address] [id number] [address] [place] [address], [place] [address] Apr, [facility] [address] [id number] [address] [place] [address], [place] [address] Apr, [facility] [facility] [address] [id number] [address] [place] [address], [place] [address] Mar, [facility] [address] [id number] [address] [place] [address], [place] [address] Mar, [facility] [address] [id number] [address] [place] [address], [place] [address] Mar, [facility] [address] [id number] [address] [place] [address], [place] [address] 20 Mar, 2012 [facility] [address] [id number] [address] [place] [address], [place] [address] Mar, [facility] [address] [id number] [address] [place] [address], [place] [address] 19 Mar, 2012 [facility] [address] [id number] [address] [place] [address], [place] [address] 17 Mar, 2012 [facility] [address] [id number] [address] [place] [address], [place] [address] 17 Mar, 2012 [facility] [address] [id number] [address] [place] [address], [place] [address] Mar, [facility] [address] [id number] [address] [place] [address], [place] [address] Mar, [facility] [address] [id number] [address] [place] [address], [place] [address] 30 Feb, 2012 [facility] [address] [id number] [address] [place] [address], [place] [address] 30 Feb, 2012 [facility] [address] [id number] [address] [place] [address], [place] [address] 29 Feb, 2012 [facility] [address] [id number] [address] [place] [address], [place] [address] 29 Feb, 2012 [facility] [address] [id number] [address] [place] [address], [place] [address] Feb, [facility] [address] [id number] [address] [place] [address], [place] [address] Feb, [facility] [address] [id number] [address] [place] [address], [place] [address] Feb, [facility] [address] [id number] [address] [place] [address], [place] [address] 20 Feb, 2012 [facility] [address] [id number] [address] [place] [address], [place] [address] 16 Feb, 2012 [facility] [address] [id number] [address] [place] [address], [place] [address] 16 Feb, 2012 [facility] [address] [id number] [address] [place] [address], [place] [address] 13 Feb, 2012 [facility] [address] [id number] [address] [place] [address], [place] [address] 13 Feb, 2012 [facility] [address] [id number] [address] [place] [address], [place] [address] Feb, [facility] [address] [id number] [address] [place] [address], [place] [address] Feb, [facility] [address] [id number] [address] [place] [address], [place] [address] Feb, [facility] [address] [id number] [address] [place] [address], [place] [address] Feb, [facility] [address] [id number] [address] [place] [address] Feb, [facility] [address] [id number] [address] [place] [address], [place] [address] Feb, [facility] [address] [id number] [address] [place] [address] Jan, [facility] [address] [id number] [address] [place] [address] Jan, [facility] [address] [id number] [address] [place] [address] 31 Jan, 2012 [facility] [address] [id number] [address] [place] [address] 31 Jan, 2012 [facility] [address] [id number] [address] [place] [address] Jan, [facility] [address] [id number] [address] [place] [address] 24 Jan, 2012 [facility] [address] [id number] [address] [place] [address] Jan, [facility] [address] [id number] [address] [place] [address], [place] [address] Jan, [facility] [address] [id number] [address] [place] [address], [place] [address] Jan, [facility] [address] [id number] [address] [place] [address], [place] [address] Jan, [facility] [address] [id number] [address] [place] [address], [place] [address] 24 Dec, 2011 [facility] [address] [id number] [address] [place] [address], [place] [address] Dec, [facility] [address] [id number] [address] [place] [address], [place] [address] Dec, [facility] [address] [id number] [address] [place] [address], [place] [address] Dec, [facility] [address] [id number] [address] [place] [address], [place] [address] Nov, [facility] [address] [id number] [address] [place] [address], [place] [address] Nov, [facility] [address] [id number] [address] [place] [address], [place] [address] Nov, [facility] [address] [id number] [address] [place] [address], [place] [address] Nov, [facility] [address] [id number] [address] [place] [address], [place] [address] Nov, [facility] [address] [id number] [address] [place] [address], [place] [address] Nov, [facility] [address] [id number] [address] [place] [address], [place] [address] Oct, [facility] [address] [id number] [address] [place] [address], [place] [address] Oct, [facility] [address] [id number] [address] [place] [address], [place] [address] 06 Oct, 2011 [facility] [address] [id number] [address] [place] [address], [place] [address] Oct, [facility] [address] [id number] [address] [place] [address], [place] [address] Oct, [facility] [address] [id number] [address] [place] [address], [place] [address] Sep, [facility] [address] [id number] [address] [place] [address], [place] [address] Sep, [facility] [address] [id number] [address] [place] [address], [place] [address] Sep, [facility] [address] [id number] [address] [place] [address], [place] [address] Sep, [facility] [address] [id number] [address] [place] [address], [place] [address] Sep, [facility] [address] [id number] [address] [place] [address], [place] [address] August, [facility] [address] [id number] [address] [place] [address], [place] [address] August, [facility] [address] [id number] [address] [place] [address], [place] [address] August, [facility] [address] [id number] [address] [place] [address], [place] [address] August, [facility] [address] [id number] [address] [place] [address], [place] [address] Jul, [facility] [address] [id number] [address] [place] [address], [place] [address] Jul, [facility] [address] [id number] [address] [place] [address], [place] [address] Jul, [facility] [address] [id number] [address] [place] [address], [place] [address] Jul, [facility] [address] [id number] [facility] [address] 18 Jul, 2011 [facility] [address] [id number] [address] [place] [address], [place] [address] Jul, [facility] [address] [id number] [address] [place] [address], [place] [address] Jul, [facility] [address] [id number] [address] [place] [address], [place] [address] 10 Jul, 2011 [facility] [address] [id number] [address] [place] [address], [place] [address] Jul, [facility] [address] [id number] [address] [place] [address], [place] [address] Jul, [facility] [address] [id number] [address] [place] [address], [place] [address] 05 Jul, 2011 [facility] [address] [id number] [address] [place] [address], [place] [address] Jul, [facility] [address] [id number] [address] [place] [address], [place] [address] Jul, [facility] [address] [id number] [address] [place] [address], [place] [address] Jul, [facility] [address] [id number] [address] [place] [address], [place] [address] 28 Jun, 2011 [facility] [address] [id number] [address] [place] [address], [place] [address] 27 Jun, 2011 [facility] [address] [id number] [address] [place] [address], [place] [address] 20 Jun, 2011 [facility] [address] [id number] [address] [place] [address], [place] [address] 16 Jun, 2011 [facility] [address] [id number] [address] [place] [address], [place] [address] May, [facility] [address] [id number] [address] [place] [address], [place] [address] 16 May, 2011 [facility] [address] [id number] [address] [place] [address], [place] [address] 09 May, 2011 [facility] [address] [id number] [address] [place] [address], [place] [address] Apr, [facility] [address] [id number] [address] [place] [address], [place] [address] 18 Apr, 2011 [facility] [address] [id number] [address] [place] [address], [place] [address] 13 Apr, 2011 [facility] [address] [id number] [address] [place] [address], [place] [address] Apr, [facility] [address] [id number] [address] [place] [address], [place] [address] Apr, [facility] [address] [id number] [address] [place] [address], [place] [address] Mar, [facility] [address] [id number] [address] [place] [address], [place] [address] Mar, [facility] [address] [id number] [address] [place] [address], [place] [address] Mar, [facility] [address] [id number] [address] [place] [address], [place] [address] Mar, [facility] [address] [id number] [address] [place] [address], [place] [address] Mar, [facility] [address] [id number] [address] [place] [address], [place] [address] Mar, [facility] [address] [id number] [address] [place] [address], [place] [address] 05 Mar, 2011 [facility] [address] [id number] [address] [place] [address], [place] [address] Feb, [facility] [address] [id number] [address] [place] [address], [place] [address] Feb, [facility] [address] [id number] [address] [place] [address], [place] [address] Feb, [facility] [address] [id number] [address] [place] [address], [place] [address] 22 Feb, 2011 [facility] [address] [id number] [address] [place] [address], [place] [address] 16 Feb, 2011 [facility] [address] [id number] [address] [place] [address], [place] [address] 14 Feb, 2011 [facility] [address] [id number] [address] [place] [address], [place] [address] 10 Feb, 2011 [facility] [address] [id number] [address] [place] [address], [place] [address] 31 Jan, 2011 [facility] [address] [id number] [address] [place] [address], [place] [address] 31 Jan, 2011 [facility] [address] [id number] [address] [place] [address], [place] [address] 31 Jan, 2011 [facility] [address] [id number] [address] [place] [address], [place] [address] 18 Jan, 2011 [facility] [address] [id number] [address] [place] [address], [place] [address] 17 Jan, 2011 [facility] [address] [id number] [address] [place] [address], [place] [address] 17 Jan, 2011 [facility] [address] [id number] [address] [place] [address] Jun, [facility] [address] [id number] [address] [place] [address], [place] [address] 30 Mar, 2010 [facility] [address] [id number] [address] [place] [address], [place] [address] Mar, [facility] [address] [id number] [address] [place] [address], [place] [address] 14 Mar, 2010 [facility] [address] [id number] [address] [place] [address] 14 Mar, 2010 [facility] [address] [id number] [address] [place] [address], [place] [address] 13 Mar, 2010 [facility] [address] [id number] [address] [place] [address] 07 Mar, 2010 [facility] [address] [id number] [address] [place] [address], [place] [address] 02 Mar, 2010 [facility] [address] [id number] [address] [place] [address] Mar, [facility] [address] [id number] [address] [place] [address], [place] [address] 30 Feb, 2010 [facility] [address] [id number] [address] [place] [address] 29 Feb, 2010 [facility] [address] [id number] [address] [place] [address] 17 Feb, 2010 [facility] [address] [id number] [address] [place] [address] 17 Feb, 2010 [facility] [address] [id number] [address] [place] [address] 16 Feb, 2010 [facility] [address] [id number] [address] [place] [address] 08 Feb, 2010 [facility] [address] [id number] [address] [place] [address] 04 Feb, 2010 [facility] [address] [id number] [address] [place] [address] Feb, [facility] [address] [id number] [address] [place] [address] Jan, [facility] [address] [id number] [address] [place] [address] Jan, [facility] [address] [id number] [address] [place] [address] Jan, [facility] [address] [id number] [address] [place] [address] Jan, [facility] [address] [id number] [address] [place] [address] Mar, [facility] [address] [id number] [address] [place] [address] Mar, [facility] [address] [id number] [address] [place] [address] Mar, [facility] [address] [id number] [address] [place] [address] Mar, [facility] [address] [id number] [address] [place] [address] Mar, [facility] [address] [id number] [address] [place] [address] Mar, [facility] [address] [id number] [address] [place] [address] Feb, [facility] [address] [id number] [address] [place] [address] Feb, [facility] [address] [id number] [address] [place] [address] Jan, [facility] [address] [id number] [address] [place] [address] Sep, [facility] [address] [id number] [address] [place] [address] May, IMMUNIZATIONS No Known Immunizations SOCIAL HISTORY [...] Surgical History Left ear surgery Hospitalization History [facility] in [place]- Spontane ous Pneumothorax Hospitalization History [facility]- Colon resection Hospitalization History [facility] - diarrhea/ couldnt urin ate nov 2017 Hospitalization History pain /hip to foot right side 10/16/19 19
--- OUTSIDE RECORDS SUMMARY | 2019-08-28 09:17 | XMS REPORT ---
Author Author Dixon Lundberg Doctor Organization [facility] Address Unknown Phone Unavailable Care Team Providers Care Scrummaster Name Role Phone Migration, Doctor Unavailable Unavailable PROBLEMS Type Condition ICD9-CM Code VBQ57-ER Code Onset Dates Condition S tatus SNOMED Code Problem Insomnia G47.00 Active 077791423 Problem Anxiety F41.9 Active 04071967 Problem HTN (hypertension) I10 Active 3 6940468 Problem Hyperlipidemia E78.5 Active 44624 004 Problem Thoracic back pain, unspecif ied back pain laterality, unspecified chronicity M54.6 Active 572049611 Problem Vitamin D deficiency E55.9 Active 50924587 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 14353396 Problem Chronic pain G89.29 Active 5891041 1 Problem Schizophrenia, unspecified type F20.9 Active 12954441 Problem Constipation K59.00 Active 8317340 8 Problem Environmental allergies Z91.09 Active 275532668 Problem Primary insomnia F51.01 Active 397 2004 Problem Chronic kidney disease, stage III (moderate) N18.3 Active 603109722 Problem Vision loss H54.7 Active 06507670 1 ALLERGIES No Information ENCOUNTERS Encounter Location Date Diagnosis [place] [address] [facility] [id number] [address] [place] [id number] Oct, Schizophrenia, unspecified t ype F20.9 and Acute kidney injury N17.9 [facility] [address] [facility] [id number] [address] [place] [address] Oct, [facility] [address] [facility] [id number] [address] [place] [address] Oct, [facility] [address] [facility] [id number] [address] [place] [address] Oct, Thoracic back pain, unspecif ied back pain laterality, unspecified chronicity M54.6 [facility] [address] [facility] [id number] [address] [place] [address] Oct, [facility] [address] [id number] [address] [place] [id number] Oct, [facility] [address] [id number] [address] [place] [id number] Sep, Anxiety F41.9 [facility] [address] [id number] [address] [place] [id number] Sep, [facility] [address] [id number] [address] [place] [id number] Sep, Thoracic back pain, unspecif ied back pain laterality, unspecified chronicity M54.6 [facility] [address] [id number] [address] [place] [id number] Sep, [facility] [address] [facility] [id number] [address] [place] [phone] Sep, [facility] [address] [facility] [id number] [address] [place] [phone] Sep, [facility] [address] [id number] [address] [place] [address] Sep, [facility] [address] [facility] [id number] [address] [place] [id number] Sep, [facility] [address] [facility] [id number] [address] [place] [id number] Sep, [facility] [address] [facility] [id number] [address] [place] [address] Sep, Chronic pain G89.29 ; Chroni c kidney disease, stage III (moderate) N18.3 ; Hyperlipidemia E78.5 and Insomnia G47.00 [facility] [address] [id number] [address] [place] [id number] Sep, Thoracic back pain, unspecif ied back pain laterality, unspecified chronicity M54.6 [facility] [address] [facility] [id number] [address] [place] [id number] August, Anxiety F41.9 [facility] [address] [id number] [address] [place] [id number] August, Thoracic back pain, unspecif ied back pain laterality, unspecified chronicity M54.6 and Anxiety F41.9 [facility] [address] [id number] [address] [place] [address] August, 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 [facility] [address] [id number] [address] [place] [address] August, 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 [facility] [address] [id number] [address] [place] [address] August, [facility] [address] [id number] [address] [place] [address] August, [facility] [address] [id number] [address] [place] [address] August, Thoracic back pain, unspecif ied back pain laterality, unspecified chronicity M54.6 [facility] [address] [id number] [address] [place] [address] August, [facility] [address] [id number] [address] [place] [address] August, Anxiety F41.9 and Thoracic b ack pain, unspecified back pain laterality, unspecified chronicity M54.6 [facility] [address] [id number] [address] [place] [id number] Jul, [facility] [address] [id number] [address] [place] [id number] Jul, Thoracic back pain, unspecif ied back pain laterality, unspecified chronicity M54.6 [facility] [address] [id number] [address] [place] [address] Jun, Anxiety F41.9 and Thoracic b ack pain, unspecified back pain laterality, unspecified chronicity M54.6 [facility] [address] [id number] [address] [place] [id number] 08 Jun, 2018 Anxiety F41.9 and Thoracic b ack pain, unspecified back pain laterality, unspecified chronicity M54.6 [facility] [address] [facility] [id number] [address] [place] [address] Jun, Thoracic back pain, unspecif ied back pain laterality, unspecified chronicity M54.6 [place] [address] [id number] [address] [place] [address] Jun, Anxiety F41.9 and Thoracic b ack pain, unspecified back pain laterality, unspecified chronicity M54.6 [place] [address] [id number] [address] [place] [address] May, [place] [address] [facility] [id number] [address] [place] [address] May, [place] [address] [facility] [id number] [address] [place] [id number] May, [facility] [address] [facility] [id number] [address] [place] [address] May, Anxiety F41.9 and Encounter for medication monitoring Z51.81 [place] [address] [facility] [id number] [address] [place] [id number] May, Anxiety F41.9 and Thoracic b ack pain, unspecified back pain laterality, unspecified chronicity M54.6 [place] [id number] [facility] [id number] [address] [place] [address] Apr, Hyperlipidemia 272.4 [place] [address] [facility] [id number] [address] [place] [address] Apr, Chronic pain G89.29 ; Anxiet y F41.9 ; Cervical radiculopathy M54.12 and Vision loss H54.7 [place] [address] [facility] [id number] [address] [place] [address] Apr, [place] [address] [id number] [address] [place] [address] Apr, Anxiety F41.9 and Thoracic b ack pain, unspecified back pain laterality, unspecified chronicity M54.6 [facility] [address] [id number] [address] [place] [address] Mar, [facility] [address] [id number] [address] [place] [id number] Mar, Anxiety F41.9 and Thoracic b ack pain, unspecified back pain laterality, unspecified chronicity M54.6 [facility] [address] [id number] [address] [place] [address] Feb, Anxiety F41.9 and Thoracic b ack pain, unspecified back pain laterality, unspecified chronicity M54.6 [facility] [address] [id number] [address] [place] [id number] 07 Feb, 2018 Thoracic back pain, unspecif ied back pain laterality, unspecified chronicity M54.6 [facility] [address] [id number] [address] [place] [address] Jan, [facility] [address] [id number] [address] [place] [id number] Jan, Anxiety F41.9 and Thoracic b ack pain, unspecified back pain laterality, unspecified chronicity M54.6 [facility] [address] [id number] [address] [place] [id number] Dec, Diarrhea of presumed infecti ous origin R19.7 [facility] [address] [id number] [address] [place] [id number] 19 Dec, 2017 Diarrhea of presumed infecti ous origin R19.7 [facility] [address] [id number] [address] [place] [id number] 18 Dec, 2017 Thoracic back pain, unspecif ied back pain laterality, unspecified chronicity M54.6 [facility] [address] [id number] [address] [place] [id number] Dec, [place] [address] [id number] [address] [place] [address] Dec, Anxiety F41.9 and Thoracic b ack pain, unspecified back pain laterality, unspecified chronicity M54.6 [place] [address] [facility] [id number] [address] [place] [address] Dec, Diarrhea of presumed infecti ous origin R19.7 [place] [address] [facility] [id number] [address] [place] [address] Dec, [place] [address] [facility] [id number] [address] [place] [address] Dec, Anxiety F41.9 and Thoracic b ack pain, unspecified back pain laterality, unspecified chronicity M54.6 [place] [address] [place] [id number] [address] [place] [address] Dec, Anxiety F41.9 and Thoracic b ack pain, unspecified back pain laterality, unspecified chronicity M54.6 [facility] [address] [place] [id number] Dec, Diarrhea of presumed infectious origin R 19.7 ; Anxiety F41.9 ; Thoracic back pain, unspecified back pain laterality, unspecified chronicity M54.6 and HTN (hypertension) I10 [place] [address] [facility] [id number] [address] [place] [address] Dec, Anxiety F41.9 [email or web address] [address] [place] [id number] Dec, Anxiety F41.9 ; Diarrhea of presumed inf ectious origin R19.7 ; Generalized abdominal pain R10.84 and Localized edema R60.0 [place] [address] [facility] [id number] [address] [place] [address] Nov, [email or web address] [address] [place] [id number] Nov, Anxiety F41.9 ; Urinary retention R33.9 ; Diarrhea of presumed infectious origin R19.7 ; Weakness R53.1 ; Acute kidney failure, unspecified N17.9 ; Chronic kidney disease, stage III (moderate) N18.3 and Thoracic back pain, unspecified back pain laterality, unspecified chronicity M54.6 [place] [address] [place] [id number] [address] [place] [id number] Oct, Thoracic back pain, unspecif ied back pain laterality, unspecified chronicity M54.6 and Anxiety F41.9 [place] [address] [address] Sep, Thoracic back pain, unspecif ied back pain laterality, unspecified chronicity M54.6 and Anxiety F41.9 [place] [address] [place] [id number] [place] [address] Sep, Thoracic back pain, unspecif ied back pain laterality, unspecified chronicity M54.6 ; Anxiety F41.9 and Encounter for medication monitoring Z51.81 [place] [address] [address] August, [place] [address] [place] [id number] [place] [address] August, Thoracic back pain, unspecif ied back pain laterality, unspecified chronicity M54.6 and Anxiety F41.9 [place] [address] [address] August, Hyperlipidemia E78.5 and HTN (hypertension) I10 [place] [address] [place] [id number] [address] [place] [address] August, [place] [address] [place] [id number] [place] [address] August, [facility] ; Chronic kidney failure N18.9 ; Anxiety F41.9 ; Chronic pain G89.29 ; Insomnia G47.00 ; Hyperlipidemia E78.5 ; HTN (hypertension) I10 and Thoracic back pain, unspecified back pain laterality, unspecified chronicity M54.6 [facility] [address] [id number] [address] [place] [address] Jul, [facility] [address] [id number] [address] [place] [address] Jul, [facility] [address] [id number] [address] [place] [address] Jul, [facility] [address] [id number] [address] [place] [address] Jul, Anxiety F41.9 [facility] [address] [id number] [address] [place] [address] Jul, Thoracic back pain, unspecif ied back pain laterality, unspecified chronicity M54.6 and Anxiety F41.9 [facility] [address] [id number] [address] [place] [address] Jun, Thoracic back pain, unspecif ied back pain laterality, unspecified chronicity M54.6 and Anxiety F41.9 [facility] [address] [id number] [address] [place] [address] May, Thoracic back pain, unspecif ied back pain laterality, unspecified chronicity M54.6 and Anxiety F41.9 [facility] [address] [id number] [address] [place] [address] Apr, Thoracic back pain, unspecif ied back pain laterality, unspecified chronicity M54.6 and Anxiety F41.9 [facility] [address] [id number] [address] [place] [id number] Mar, [facility] [address] [id number] [address] [place] [id number] Mar, Thoracic back pain, unspecif ied back pain laterality, unspecified chronicity M54.6 and Anxiety F41.9 [facility] [address] [id number] [address] [place] [address] Mar, Thoracic back pain, unspecif ied back pain laterality, unspecified chronicity M54.6 ; HTN (hypertension) I10 ; Hyperlipidemia E78.5 and Anxiety F41.9 [place] [address] [address] Feb, Thoracic back pain, unspecif ied back pain laterality, unspecified chronicity M54.6 and Anxiety F41.9 [place] [address] [address] Nov, [place] [address] [address] Oct, [place] [address] [address] Oct, Thoracic back pain, unspecif ied back pain laterality, unspecified chronicity M54.6 [place] [address] [address] Oct, HTN (hypertension) I10 ; Con stipation K59.00 ; Hyperlipidemia E78.5 ; Thoracic back pain, unspecified back pain laterality, unspecified chronicity M54.6 ; Chronic pain G89.29 ; Anxiety F41.9 ; Chronic kidney failure N18.9 ; Environmental allergies Z91.09 ; Vitamin D deficiency E55.9 and Primary insomnia F51.01 [place] [address] [address] Sep, Anxiety F41.9 [place] [address] [address] Sep, [place] [address] [place] [id number] [place] [address] August, Anxiety F41.9 [place] [address] [place] [id number] [place] [address] August, [place] [address] [address] Jul, Anxiety F41.9 [facility] [address] [id number] [address] [place] [id number] Jul, [facility] [address] [facility] [id number] [address] [place] [address] Jun, Anxiety F41.9 [facility] [address] [facility] [id number] [address] [place] [address] Jun, [facility] [address] [id number] [address] [place] [address] May, [facility] [address] [facility] [id number] [address] [place] [address] May, [facility] [address] [facility] [id number] [address] [place] [address] May, [facility] [address] [facility] [id number] [address] [place] [address] Apr, [facility] [address] [facility] [id number] [address] [place] [address] Apr, [facility] [address] [facility] [id number] [address] [place] [address] Apr, Anxiety F41.9 [facility] [address] [facility] [id number] [address] [place] [address] Apr, Anxiety F41.9 [facility] [address] [facility] [id number] [address] [place] [address] Apr, [facility] [address] [facility] [id number] [address] [place] [address] Mar, HTN (hypertension) I10 ; Phillip mor R25.1 ; Hypercholesterolemia E78.0 ; Constipation K59.00 ; Chronic pain G89.29 ; Hyperlipidemia E78.5 ; Insomnia G47.00 ; Anxiety F41.9 and Thoracic back pain, unspecified back pain laterality, unspecified chronicity M54.6 [facility] [address] [facility] [id number] [address] [place] [address] Mar, Tremor R25.1 ; HTN (hyperten stas) I10 ; Hypercholesterolemia E78.0 ; Constipation K59.00 ; Chronic pain G89.29 ; Hyperlipidemia E78.5 ; Insomnia G47.00 ; Anxiety F41.9 and Thoracic back pain, unspecified back pain laterality, unspecified chronicity M54.6 [facility] [address] [id number] [address] [place] [id number] Mar, [facility] [address] [id number] [address] [place] [address] Mar, [facility] [address] [id number] [address] [place] [address] Feb, [facility] [address] [id number] [address] [place] [id number] Jan, [facility] [address] [id number] [address] [place] [address] Jan, [facility] [address] [id number] [address] [place] [id number] Dec, [facility] [address] [id number] [address] [place] [address] Nov, [facility] [address] [id number] [address] [place] [address] Nov, [facility] [address] [id number] [address] [place] [address] Oct, Anxiety F41.9 [facility] [address] [id number] [address] [place] [address] Oct, Chronic pain G89.29 [facility] [address] [id number] [address] [place] [address] Sep, [facility] [address] [id number] [address] [place] [address] Sep, [facility] [address] [id number] [address] [place] [address] Sep, [facility] [address] [facility] [id number] [address] [place] [address] Sep, [facility] [address] [place] [id number] [place] [address] Sep, Chronic pain syndrome G89.4 [facility] [address] [place] [id number] [address] [place] [address] Sep, HTN (hypertension) I10 ; Chr onic pain G89.29 ; Hypercholesterolemia E78.0 ; Chronic kidney failure N18.9 ; Constipation, unspecified constipation type K59.00 ; Anxiety F41.9 and Thoracic back pain, unspecified back pain laterality, unspecified chronicity M54.6 [place] [address] [place] [id number] [address] [place] [address] August, Chronic pain syndrome G89.4 [place] [address] [address] August, Chronic pain syndrome G89.4 [place] [id number] [place] [id number] [address] [place] [id number] Jul, Anxiety disorder, unspecifie d F41.9 and Chronic pain syndrome G89.4 [place] [address] [place] [id number] [address] [place] [address] Jul, Insomnia, unspecified G47.00 and Chronic pain syndrome G89.4 [place] [address] [place] [id number] [address] [place] [address] Jul, Allergic rhinitis J30.9 [facility] [address] [facility] [id number] [address] [place] [address] Jul, Constipation, unspecified K5 9.00 [place] [address] [facility] [id number] [address] [place] [id number] Jul, [facility] [address] [place] [id number] [address] [place] [id number] Jun, [place] [address] [place] [id number] [address] [place] [address] Jun, [facility] [address] [id number] [address] [place] [address] Jun, [facility] [address] [facility] [id number] [address] [place] [address] Jun, [facility] [address] [facility] [id number] [address] [place] [address] Jun, [facility] [address] [id number] [address] [place] [address] Jun, [facility] [address] [facility] [id number] [address] [place] [address] May, [facility] [address] [facility] [id number] [address] [place] [address] May, [facility] [address] [facility] [id number] [address] [place] [address] May, Anxiety F41.9 ; Insomnia G47 .00 ; Hyperlipidemia E78.5 ; Chronic pain G89.29 ; HTN (hypertension) I10 ; Environmental allergies V15.09 and Constipation 564.00 [facility] [address] [facility] [id number] [address] [place] [address] Apr, [facility] [address] [facility] [id number] [address] [place] [id number] Apr, [facility] [address] [facility] [id number] [address] [place] [id number] Apr, [facility] [address] [facility] [id number] [address] [place] [id number] Mar, [facility] [address] [facility] [id number] [address] [place] [id number] Mar, [facility] [address] [facility] [id number] [address] [place] [id number] Mar, [facility] [address] [facility] [id number] [address] [place] [id number] Feb, [facility] [address] [id number] Feb, [place] [address] [id number] Feb, [place] [address] [id number] Jan, HTN (hypertension) I10 ; Con stipation K59.00 ; Chronic pain G89.29 ; Hyperlipidemia E78.5 ; Hypercholesterolemia E78.0 ; Insomnia G47.00 and Anxiety F41.[address] [id number] Jan, [place] [address] [id number] Dec, [address] [id number] Nov, [place] [address] [id number] Oct, Chronic kidney disease, unsp ecified 585.9 ; Chronic pain syndrome 338.4 ; Hyperlipidemia 272.4 and Essential hypertension 401.[address] [id number] Oct, Chronic kidney disease 585.9 [place] [address] [address] [address] [address] Oct, [address] [address] Oct, Chronic kidney disease, unsp ecified 585.9 ; Hypercalcemia 275.42 ; Hyperlipidemia 272.4 ; Essential hypertension 401.9 ; Chronic pain syndrome 338.4 ; Insomnia 780.52 ; Constipation 564.00 ; Environmental allergies V15.09 and Anxiety 300.[address] [address] 15 Oct, 2014 Chronic kidney disease 585.9 [facility] [address] [id number] [address] [place] [address], [place] [address] 15 Oct, 2014 [facility] [address] [id number] [address] [place] [address] 14 Oct, 2014 Chronic kidney disease 585.9 and Hyperlipidemia 272.4 [facility] [address] [id number] [address] [place] [address] 10 Oct, 2014 [facility] [address] [id number] [address] [place] [address] Oct, [facility] [address] [id number] [address] [place] [address] Sep, [facility] [address] [id number] [address] [place] [address] Sep, [facility] [address] [id number] [address] [place] [address] Sep, Chronic kidney disease 585.9 and Hyperlipidemia 272.4 [facility] [address] [id number] [address] [place] [address] Sep, [facility] [address] [id number] [address] [place] [address] August, [facility] [address] [id number] [address] [place] [address] August, [facility] [address] [id number] [address] [place] [address] Jul, [facility] [address] [id number] [address] [place] [address] Jul, [facility] [address] [id number] [address] [place] [address] Jun, [facility] [address] [id number] [address] [place] [address] Jun, [facility] [address] [id number] [address] [place] [address], [place] [address] 16 Jun, 2014 [facility] [address] [id number] [address] [place] [address], [place] [address] Jun, [facility] [address] [id number] [address] [place] [address], [place] [address] Jun, [facility] [address] [id number] [address] [place] [address], [place] [address] Jun, [facility] [address] [id number] [address] [place] [address], [place] [address] Jun, [facility] [address] [id number] [address] [place] [address], [place] [address] Jun, [facility] [address] [id number] [address] [place] [address], [place] [address] May, [facility] [address] [id number] [address] [place] [address], [place] [address] May, [facility] [address] [id number] [address] [place] [address], [place] [address] May, [facility] [address] [id number] [address] [place] [address], [place] [address] May, [facility] [address] [id number] [address] [place] [address], [place] [address] Apr, [facility] [address] [id number] [address] [place] [address], [place] [address] Apr, [facility] [address] [id number] [address] [place] [address], [place] [address] Apr, [facility] [address] [id number] [address] [place] [address], [place] [address] Apr, [facility] [address] [id number] [address] [place] [address], [place] [address] Apr, [facility] [address] [id number] [address] [place] [address], [place] [address] Apr, [facility] [address] [id number] [address] [place] [address], [place] [address] Apr, [facility] [address] [id number] [address] [place] [address], [place] [address] Apr, [facility] [address] [id number] [address] [place] [address], [place] [address] Apr, [facility] [address] [id number] [address] [place] [address], [place] [address] Apr, [facility] [address] [id number] [address] [place] [address], [place] [address] Apr, [facility] [address] [id number] [address] [place] [address], [place] [address] Mar, [facility] [address] [id number] [address] [place] [address], [place] [address] Mar, [facility] [address] [id number] [address] [place] [address], [place] [address] Feb, [facility] [address] [id number] [address] [place] [address], [place] [address] Feb, [facility] [address] [id number] [address] [place] [address], [place] [address] Feb, [facility] [address] [id number] [address] [place] [address], [place] [address] Feb, [facility] [address] [id number] [address] [place] [address] Feb, [facility] [address] [id number] [address] [place] [address], [place] [address] Feb, [facility] [address] [id number] [address] [place] [address], [place] [address] Feb, [facility] [address] [id number] [address] [place] [address] Feb, [facility] [address] [id number] [address] [place] [address], [place] [address] Feb, [facility] [address] [id number] [address] [place] [address], [place] [address] Feb, [facility] [address] [id number] [address] [place] [address], [place] [address] Jan, [facility] [address] [id number] [address] [place] [address], [place] [address] Jan, [facility] [address] [id number] [address] [place] [address], [place] [address] Jan, [facility] [address] [id number] [address] [place] [address], [place] [address] Jan, [facility] [address] [id number] [address] [place] [address], [place] [address] Jan, [facility] [address] [id number] [address] [place] [address], [place] [address] Jan, [facility] [address] [id number] [address] [place] [address], [place] [address] Jan, [facility] [address] [id number] [address] [place] [address], [place] [address] Jan, [facility] [address] [id number] [address] [place] [address], [place] [address] 16 Jan, 2014 [facility] [address] [id number] [address] [place] [address], [place] [address] Jan, [facility] [address] [id number] [address] [place] [address], [place] [address] Jan, [facility] [address] [id number] [address] [place] [address], [place] [address] Dec, [facility] [address] [id number] [address] [place] [address], [place] [address] Dec, [facility] [address] [id number] [address] [place] [address], [place] [address] 19 Dec, 2013 [facility] [address] [id number] [facility] [address] 19 Dec, 2013 [facility] [address] [id number] [facility] [address] 18 Dec, 2013 [facility] [address] [id number] [facility] [address] Dec, [facility] [address] [id number] [address] [place] [address], [place] [address] Dec, 2013 [facility] [address] [id number] [address] [place] [address], [place] [address] Dec, 2013 [facility] [address] [id number] [address] [place] [address], [place] [address] Nov, [facility] [address] [id number] [address] [place] [address], [place] [address] Nov, [facility] [address] [id number] [address] [place] [address], [place] [address] Nov, [facility] [address] [id number] [address] [place] [address], [place] [address] Nov, [facility] [address] [id number] [address] [place] [address], [place] [address] Nov, [facility] [address] [id number] [address] [place] [address], [place] [address] Nov, [facility] [address] [id number] [address] [place] [address], [place] [address] Nov, [facility] [address] [id number] [address] [place] [address], [place] [address] Nov, [facility] [address] [id number] [address] [place] [address], [place] [address] Oct, [facility] [address] [id number] [address] [place] [address], [place] [address] Oct, [facility] [address] [id number] [address] [place] [address], [place] [address] Oct, [facility] [address] [id number] [facility] [address] Oct, [facility] [address] [id number] [address] [place] [address], [place] [address] Sep, [facility] [address] [id number] [facility] [address] Sep, [facility] [address] [id number] [address] [place] [address], [place] [address] Sep, [facility] [address] [id number] [address] [place] [address], [place] [address] Sep, [facility] [address] [id number] [address] [place] [address], [place] [address] Sep, [facility] [address] [id number] [address] [place] [address], [place] [address] Sep, [facility] [address] [id number] [address] [place] [address], [place] [address] Sep, [facility] [address] [id number] [address] [place] [address], [place] [address] Sep, [facility] [address] [id number] [address] [place] [address], [place] [address] August, [facility] [address] [id number] [address] [place] [address], [place] [address] August, [facility] [address] [id number] [address] [place] [address], [place] [address] August, [facility] [address] [id number] [address] [place] [address], [place] [address] August, [facility] [address] [id number] [address] [place] [address], [place] [address] August, [facility] [address] [id number] [address] [place] [address], [place] [address] August, [facility] [address] [id number] [address] [place] [address], [place] [address] August, [facility] [address] [id number] [address] [place] [address], [place] [address] August, [facility] [address] [id number] [address] [place] [address], [place] [address] August, [facility] [address] [id number] [address] [place] [address], [place] [address] August, [facility] [address] [id number] [address] [place] [address], [place] [address] Jul, [facility] [address] [id number] [address] [place] [address], [place] [address] Jul, [facility] [address] [id number] [address] [place] [address], [place] [address] Jul, [facility] [address] [id number] [address] [place] [address], [place] [address] Jul, [facility] [address] [id number] [address] [place] [address], [place] [address] Jul, [facility] [address] [id number] [address] [place] [address], [place] [address] Jul, [facility] [address] [id number] [address] [place] [address], [place] [address] Jul, [facility] [address] [id number] [address] [place] [address], [place] [address] Jul, [facility] [address] [id number] [address] [place] [address], [place] [address] Jun, [facility] [address] [id number] [address] [place] [address], [place] [address] Jun, [facility] [address] [id number] [address] [place] [address], [place] [address] Jun, [facility] [address] [id number] [address] [place] [address], [place] [address] Jun, [facility] [address] [id number] [address] [place] [address], [place] [address] Jun, [facility] [address] [id number] [address] [place] [address], [place] [address] Jun, [facility] [address] [id number] [address] [place] [address], [place] [address] May, [facility] [address] [id number] [address] [place] [address], [place] [address] May, [facility] [address] [id number] [address] [place] [address], [place] [address] May, [facility] [address] [id number] [address] [place] [address], [place] [address] May, [facility] [address] [id number] [address] [place] [address], [place] [address] May, [facility] [address] [id number] [address] [place] [address], [place] [address] May, [facility] [address] [id number] [address] [place] [address], [place] [address] May, [facility] [address] [id number] [address] [place] [address], [place] [address] Apr, [facility] [address] [id number] [address] [place] [address], [place] [address] Apr, [facility] [address] [id number] [address] [place] [address], [place] [address] Apr, [facility] [address] [id number] [address] [place] [address], [place] [address] Apr, [facility] [address] [id number] [address] [place] [address], [place] [address] Apr, [facility] [address] [id number] [address] [place] [address], [place] [address] Apr, [facility] [address] [id number] [address] [place] [address], [place] [address] 31 Mar, 2013 [facility] [address] [id number] [address] [place] [address], [place] [address] 31 Mar, 2013 [facility] [address] [id number] [address] [place] [address], [place] [address] Mar, [facility] [address] [id number] [address] [place] [address], [place] [address] 23 Mar, 2013 [facility] [address] [id number] [address] [place] [address], [place] [address] Mar, [facility] [address] [id number] [address] [place] [address], [place] [address] 19 Mar, 2013 [facility] [address] [id number] [address] [place] [address], [place] [address] 16 Mar, 2013 [facility] [address] [id number] [address] [place] [address], [place] [address] 16 Mar, 2013 [facility] [address] [id number] [address] [place] [address], [place] [address] 12 Mar, 2013 [facility] [address] [id number] [address] [place] [address], [place] [address] Mar, [facility] [address] [id number] [address] [place] [address], [place] [address] 25 Feb, 2013 [facility] [address] [id number] [address] [place] [address], [place] [address] 25 Feb, 2013 [facility] [address] [id number] [address] [place] [address], [place] [address] 25 Feb, 2013 [facility] [address] [id number] [address] [place] [address], [place] [address] 25 Feb, 2013 [facility] [address] [id number] [address] [place] [address], [place] [address] 14 Feb, 2013 [facility] [address] [id number] [address] [place] [address], [place] [address] 14 Feb, 2013 [facility] [address] [id number] [address] [place] [address], [place] [address] Feb, [facility] [address] [id number] [address] [place] [address], [place] [address] Feb, [facility] [address] [id number] [address] [place] [address], [place] [address] Feb, [facility] [address] [id number] [address] [place] [address], [place] [address] Feb, [facility] [address] [id number] [address] [place] [address], [place] [address] Jan, [facility] [address] [id number] [address] [place] [address], [place] [address] Jan, [facility] [address] [id number] [address] [place] [address], [place] [address] Jan, [facility] [address] [id number] [address] [place] [address], [place] [address] Jan, [facility] [address] [id number] [address] [place] [address], [place] [address] Jan, [facility] [address] [id number] [address] [place] [address], [place] [address] Jan, [facility] [address] [id number] [address] [place] [address], [place] [address] Jan, [facility] [address] [id number] [address] [place] [address], [place] [address] Jan, [facility] [address] [id number] [address] [place] [address], [place] [address] Jan, [facility] [address] [id number] [address] [place] [address], [place] [address] Dec, [facility] [address] [id number] [address] [place] [address], [place] [address] Dec, [facility] [address] [id number] [address] [place] [address], [place] [address] Dec, [facility] [address] [id number] [address] [place] [address], [place] [address] Dec, [facility] [address] [id number] [address] [place] [address], [place] [address] Nov, [facility] [address] [id number] [address] [place] [address], [place] [address] Nov, [facility] [address] [id number] [address] [place] [address], [place] [address] Nov, [facility] [address] [id number] [address] [place] [address], [place] [address] Nov, [facility] [address] [id number] [address] [place] [address], [place] [address] Nov, [facility] [address] [id number] [address] [place] [address], [place] [address] Nov, [facility] [address] [id number] [address] [place] [address], [place] [address] Oct, [facility] [address] [id number] [address] [place] [address], [place] [address] Oct, [facility] [address] [id number] [address] [place] [address], [place] [address] Oct, [facility] [address] [id number] [address] [place] [address], [place] [address] Oct, [facility] [address] [id number] [address] [place] [address], [place] [address] Sep, [facility] [address] [id number] [address] [place] [address], [place] [address] Sep, [facility] [address] [id number] [address] [place] [address], [place] [address] Sep, [facility] [address] [id number] [address] [place] [address], [place] [address] Sep, [facility] [address] [id number] [address] [place] [address], [place] [address] 10 Sep, 2012 [facility] [address] [id number] [address] [place] [address], [place] [address] August, [facility] [address] [id number] [address] [place] [address], [place] [address] 2012 [facility] [address] [id number] [address] [place] [address], [place] [address] Jul, [facility] [address] [id number] [address] [place] [address], [place] [address] Jul, [facility] [address] [id number] [address] [place] [address], [place] [address] 15 Jul, 2012 [facility] [address] [id number] [address] [place] [address], [place] [address] Jul, [facility] [address] [id number] [address] [place] [address], [place] [address] Jul, [facility] [address] [id number] [address] [place] [address], [place] [address] Jun, [facility] [address] [id number] [address] [place] [address], [place] [address] Jun, [facility] [address] [id number] [address] [place] [address], [place] [address] 15 Jun, 2012 [facility] [address] [id number] [address] [place] [address], [place] [address] Jun, [facility] [address] [id number] [address] [place] [address], [place] [address] Jun, [facility] [address] [id number] [address] [place] [address], [place] [address] May, [facility] [address] [id number] [address] [place] [address], [place] [address] May, [facility] [address] [id number] [address] [place] [address], [place] [address] May, [facility] [address] [id number] [address] [place] [address], [place] [address] May, [facility] [address] [id number] [address] [place] [address], [place] [address] May, [facility] [address] [id number] [address] [place] [address], [place] [address] May, [facility] [address] [id number] [address] [place] [address], [place] [address] May, [facility] [address] [id number] [address] [place] [address], [place] [address] May, [facility] [address] [id number] [address] [place] [address], [place] [address] May, [facility] [address] [id number] [address] [place] [address], [place] [address] Apr, [facility] [address] [id number] [address] [place] [address], [place] [address] Apr, [facility] [address] [id number] [address] [place] [address], [place] [address] Apr, [facility] [address] [id number] [address] [place] [address], [place] [address] Apr, [facility] [address] [id number] [address] [place] [address], [place] [address] Apr, [facility] [address] [id number] [address] [place] [address], [place] [address] Mar, [facility] [address] [id number] [address] [place] [address], [place] [address] Mar, [facility] [address] [id number] [address] [place] [address], [place] [address] Mar, [facility] [address] [id number] [address] [place] [address], [place] [id number] Mar, [facility] [address] [id number] [address] [place] [address], [place] [address] 19 Mar, 2012 [facility] [address] [id number] [address] [place] [address], [place] [address] 19 Mar, 2012 [facility] [address] [id number] [address] [place] [address], [place] [address] 17 Mar, 2012 [facility] [address] [id number] [address] [place] [address], [place] [address] 17 Mar, 2012 [facility] [address] [id number] [address] [place] [address], [place] [address] 07 Mar, 2012 [facility] [address] [id number] [address] [place] [address], [place] [address] 07 Mar, 2012 [facility] [address] [id number] [address] [place] [address], [place] [address] 30 Feb, 2012 [facility] [address] [id number] [address] [place] [address], [place] [address] 30 Feb, 2012 [facility] [address] [id number] [address] [place] [address], [place] [address] 29 Feb, 2012 [facility] [address] [id number] [address] [place] [address], [place] [address] 29 Feb, 2012 [facility] [address] [id number] [address] [place] [address], [place] [address] 23 Feb, 2012 [facility] [address] [id number] [address] [place] [address], [place] [address] 23 Feb, 2012 [facility] [address] [id number] [address] [place] [address], [place] [address] 20 Feb, 2012 [facility] [address] [id number] [address] [place] [address], [place] [address] 20 Feb, 2012 [facility] [address] [id number] [address] [place] [address], [place] [address] 16 Feb, 2012 [facility] [address] [id number] [address] [place] [address], [place] [address] 16 Feb, 2012 [facility] [address] [id number] [address] [place] [address], [place] [address] 13 Feb, 2012 [facility] [address] [id number] [address] [place] [address], [place] [address] 13 Feb, 2012 [facility] [address] [id number] [address] [place] [address], [place] [address] 12 Feb, 2012 [facility] [address] [id number] [address] [place] [address], [place] [address] Feb, [facility] [address] [id number] [address] [place] [address], [place] [address] Feb, [facility] [address] [id number] [address] [place] [address], [place] [address] Feb, [facility] [address] [id number] [address] [place] [address], [place] [address] Feb, [facility] [address] [id number] [address] [place] [address] Feb, [facility] [address] [id number] [address] [place] [address], [place] [address] Jan, [facility] [address] [id number] [address] [place] [address] Jan, [facility] [address] [id number] [address] [place] [address] Jan, [facility] [address] [id number] [address] [place] [address] 31 Jan, 2012 [facility] [address] [id number] [address] [place] [address] 24 Jan, 2012 [facility] [address] [id number] [address] [place] [address] 24 Jan, 2012 [facility] [address] [id number] [address] [place] [address] 19 Jan, 2012 [facility] [address] [id number] [address] [place] [address] Jan, [facility] [address] [id number] [address] [place] [address], [place] [address] Jan, [facility] [address] [id number] [address] [place] [address], [place] [address] Jan, [facility] [address] [id number] [address] [place] [address], [place] [address] Dec, [facility] [address] [id number] [address] [place] [address], [place] [address] Dec, [facility] [address] [id number] [address] [place] [address], [place] [address] Dec, [facility] [address] [id number] [address] [place] [address], [place] [address] Dec, [facility] [address] [id number] [address] [place] [address], [place] [address] Nov, [facility] [address] [id number] [address] [place] [address], [place] [address] Nov, [facility] [address] [id number] [address] [place] [address], [place] [address] Nov, [facility] [address] [id number] [address] [place] [address], [place] [address] Nov, [facility] [address] [id number] [address] [place] [address], [place] [address] Nov, [facility] [address] [id number] [address] [place] [address], [place] [address] Nov, [facility] [address] [id number] [address] [place] [address], [place] [address] Oct, [facility] [address] [id number] [address] [place] [address], [place] [address] Oct, [facility] [address] [id number] [address] [place] [address], [place] [address] Oct, [facility] [address] [id number] [address] [place] [address], [place] [address] Oct, [facility] [address] [id number] [address] [place] [address], [place] [address] Oct, [facility] [address] [id number] [address] [place] [address], [place] [address] Sep, [facility] [address] [id number] [address] [place] [address], [place] [address] Sep, [facility] [address] [id number] [address] [place] [address], [place] [address] Sep, [facility] [address] [id number] [address] [place] [address], [place] [address] Sep, [facility] [address] [id number] [address] [place] [address], [place] [address] Sep, [facility] [address] [id number] [address] [place] [address], [place] [address] August, [facility] [address] [id number] [address] [place] [address], [place] [address] August, [facility] [address] [id number] [address] [place] [address], [place] [address] August, [facility] [address] [id number] [address] [place] [address], [place] [address] August, [facility] [address] [id number] [address] [place] [address], [place] [address] Jul, [facility] [address] [id number] [address] [place] [address], [place] [address] 24 Jul, 2011 [facility] [address] [id number] [address] [place] [address], [place] [address] Jul, [facility] [address] [id number] [address] [place] [address], [place] [address] Jul, [facility] [address] [id number] [address] [place] [address], [place] [address] 18 Jul, 2011 [facility] [address] [id number] [facility] [address] 12 Jul, 2011 [facility] [address] [id number] [address] [place] [address], [place] [address] 11 Jul, 2011 [facility] [address] [id number] [address] [place] [address], [place] [address] 10 Jul, 2011 [facility] [address] [id number] [address] [place] [address], [place] [address] 09 Jul, 2011 [facility] [address] [id number] [address] [place] [address], [place] [address] 07 Jul, 2011 [facility] [address] [id number] [address] [place] [address], [place] [address] 05 Jul, 2011 [facility] [address] [id number] [address] [place] [address], [place] [address] Jul, [facility] [address] [id number] [address] [place] [address], [place] [address] Jul, [facility] [address] [id number] [address] [place] [address], [place] [address] Jul, [facility] [address] [id number] [address] [place] [address], [place] [address] 28 Jun, 2011 [facility] [address] [id number] [address] [place] [address], [place] [address] 27 Jun, 2011 [facility] [address] [id number] [address] [place] [address], [place] [address] 20 Jun, 2011 [facility] [address] [id number] [address] [place] [address], [place] [address] 16 Jun, 2011 [facility] [address] [id number] [address] [place] [address], [place] [address] 27 May, 2011 [facility] [address] [id number] [address] [place] [address], [place] [address] 16 May, 2011 [facility] [address] [id number] [address] [place] [address], [place] [address] 09 May, 2011 [facility] [address] [id number] [address] [place] [address], [place] [address] Apr, [facility] [address] [id number] [address] [place] [address], [place] [address] 18 Apr, 2011 [facility] [address] [id number] [address] [place] [address], [place] [address] Apr, [facility] [address] [id number] [address] [place] [address], [place] [address] Apr, [facility] [address] [id number] [address] [place] [address], [place] [address] Apr, [facility] [address] [id number] [address] [place] [address], [place] [address] Mar, [facility] [address] [id number] [address] [place] [address], [place] [address] Mar, [facility] [address] [id number] [address] [place] [address], [place] [address] Mar, [facility] [address] [id number] [address] [place] [address], [place] [address] Mar, [facility] [address] [id number] [address] [place] [address], [place] [address] 16 Mar, 2011 [facility] [address] [id number] [address] [place] [address], [place] [address] Mar, [facility] [address] [id number] [address] [place] [address], [place] [address] Mar, [facility] [address] [id number] [address] [place] [address], [place] [address] Feb, [facility] [address] [id number] [address] [place] [address], [place] [address] Feb, [facility] [address] [id number] [address] [place] [address], [place] [address] Feb, [facility] [address] [id number] [address] [place] [address], [place] [address] 22 Feb, 2011 [facility] [address] [id number] [address] [place] [address], [place] [address] 16 Feb, 2011 [facility] [address] [id number] [address] [place] [address], [place] [address] 14 Feb, 2011 [facility] [address] [id number] [address] [place] [address], [place] [address] 10 Feb, 2011 [facility] [address] [id number] [address] [place] [address], [place] [address] 31 Jan, 2011 [facility] [address] [id number] [address] [place] [address], [place] [address] 31 Jan, 2011 [facility] [address] [id number] [address] [place] [address], [place] [address] 31 Jan, 2011 [facility] [address] [id number] [address] [place] [address], [place] [address] 18 Jan, 2011 [facility] [address] [id number] [address] [place] [address], [place] [address] 17 Jan, 2011 [facility] [address] [id number] [address] [place] [address], [place] [address] 17 Jan, 2011 [facility] [address] [id number] [address] [place] [address], [place] [address] 17 Jun, 2010 [facility] [address] [id number] [address] [place] [address] 30 Mar, 2010 [facility] [address] [id number] [address] [place] [address], [place] [address] 20 Mar, 2010 [facility] [address] [id number] [address] [place] [address], [place] [address] 14 Mar, 2010 [facility] [address] [id number] [address] [place] [address], [place] [address] 14 Mar, 2010 [facility] [address] [id number] [address] [place] [address] 13 Mar, 2010 [facility] [address] [id number] [address] [place] [address], [place] [address] 07 Mar, 2010 [facility] [address] [id number] [address] [place] [address] 02 Mar, 2010 [facility] [address] [id number] [address] [place] [address], [place] [address] Mar, [facility] [address] [id number] [address] [place] [address] 30 Feb, 2010 [facility] [address] [id number] [address] [place] [address], [place] [address] 29 Feb, 2010 [facility] [address] [id number] [address] [place] [address] 17 Feb, 2010 [facility] [address] [id number] [address] [place] [address] 17 Feb, 2010 [facility] [address] [id number] [address] [place] [address], [place] [address] 16 Feb, 2010 [facility] [address] [id number] [address] [place] [address] 08 Feb, 2010 [facility] [address] [id number] [address] [place] [address] Feb, [facility] [address] [id number] [address] [place] [address] Feb, [facility] [address] [id number] [address] [place] [address] Jan, [facility] [address] [id number] [address] [place] [address] Jan, [facility] [address] [id number] [address] [place] [address] Jan, [facility] [address] [id number] [address] [place] [address] 18 Jan, 2010 [facility] [address] [id number] [address] [place] [address] 29 Mar, 2009 [facility] [address] [id number] [address] [place] [address] Mar, [facility] [address] [id number] [address] [place] [address] Mar, [facility] [address] [id number] [address] [place] [address] Mar, [facility] [address] [id number] [address] [place] [address] 14 Mar, 2009 [facility] [address] [id number] [address] [place] [address] Mar, [facility] [address] [id number] [address] [place] [address] Feb, [facility] [address] [id number] [address] [place] [address] Feb, [facility] [address] [id number] [address] [place] [address] Jan, [facility] [address] [id number] [address] [place] [address] Sep, [facility] [address] [id number] [address] [place] [address] May, IMMUNIZATIONS No Known Immunizations SOCIAL HISTORY [...] History Left ear surgery Hospitalization History [facility] [place]- Spontane ous Pneumothorax Hospitalization History [facility]- Colon resection Hospitalization History [facility] - diarrhea/ couldnt urin ate nov 2017 Hospitalization History pain /hip to foot right side 10/16/19 19
--- OUTSIDE RECORDS SUMMARY | 2019-08-28 09:18 | XMS REPORT ---
Author Author Dixon Lundberg Doctor Organization [facility] Address Unknown Phone Unavailable Care Team Providers Care Geochemical Manager Name Role Phone Migration, Doctor Unavailable Unavailable PROBLEMS Type Condition ICD9-CM Code JGI05-YX Code Onset Dates Condition S tatus SNOMED Code Problem Insomnia G47.00 Active 684119568 Problem Anxiety F41.9 Active 26105165 Problem HTN (hypertension) I10 Active 3 2062514 Problem Hyperlipidemia E78.5 Active 01289 004 Problem Thoracic back pain, unspecif ied back pain laterality, unspecified chronicity M54.6 Active 692449079 Problem Vitamin D deficiency E55.9 Active 25893769 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 [id number] [address] [place] [phone] Oct, [facility] [address] [facility] [id number] [address] [place] [address] Oct, Schizophrenia, unspecified t ype F20.9 and Acute kidney injury N17.9 [facility] [address] [facility] [id number] [address] [place] [address] Oct, [facility] [address] [facility] [id number] [address] [place] [phone] Oct, [place] [address] [facility] [id number] [address] [place] [phone] Oct, Thoracic back pain, unspecif ied back pain laterality, unspecified chronicity M54.6 [facility] [address] [id number] [address] [place] [id number] Oct, [facility] [address] [id number] [address] [place] [address] Oct, [facility] [address] [id number] [address] [place] [address] Sep, Anxiety F41.9 [facility] [address] [id number] [address] [place] [phone] Sep, [facility] [address] [id number] [address] [place] [address] Sep, Thoracic back pain, unspecif ied back pain laterality, unspecified chronicity M54.6 [facility] [address] [id number] [address] [place] [phone] Sep, [facility] [address] [id number] [address] [place] [phone] Sep, [facility] [address] [id number] [address] [place] [phone] Sep, [facility] [address] [id number] [address] [place] [address] Sep, [facility] [address] [id number] [address] [place] [phone] Sep, [facility] [address] [id number] [address] [place] [phone] Sep, [facility] [address] [id number] [address] [place] [address] Sep, Chronic pain G89.29 ; Chroni c kidney disease, stage III (moderate) N18.3 ; Hyperlipidemia E78.5 and Insomnia G47.00 [facility] [address] [id number] [address] [place] [address] Sep, Thoracic back pain, unspecif ied back pain laterality, unspecified chronicity M54.6 [facility] [address] [id number] [address] [place] [id number] August, Anxiety F41.9 [facility] [address] [id number] [address] [place] [address] August, Thoracic back pain, unspecif ied back pain laterality, unspecified chronicity M54.6 and Anxiety F41.9 [facility] [address] [id number] [address] [place] [address] August, 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 [facility] [address] [id number] [address] [place] [phone] August, 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 [facility] [address] [id number] [address] [place] [phone] August, [facility] [address] [id number] [address] [place] [phone] August, [facility] [address] [id number] [address] [place] [phone] August, Thoracic back pain, unspecif ied back pain laterality, unspecified chronicity M54.6 [facility] [address] [id number] [address] [place] [phone] August, [facility] [address] [id number] [address] [place] [address] August, Anxiety F41.9 and Thoracic b ack pain, unspecified back pain laterality, unspecified chronicity M54.6 [facility] [address] [id number] [address] [place] [phone] Jul, [facility] [address] [facility] [id number] [address] [place] [phone] Jul, Thoracic back pain, unspecif ied back pain laterality, unspecified chronicity M54.6 [facility] [address] [id number] [address] [place] [phone] Jun, Anxiety F41.9 and Thoracic b ack pain, unspecified back pain laterality, unspecified chronicity M54.6 [facility] [address] [id number] [address] [place] [id number] 08 Jun, 2018 Anxiety F41.9 and Thoracic b ack pain, unspecified back pain laterality, unspecified chronicity M54.6 [facility] [address] [id number] [address] [place] [phone] Jun, Thoracic back pain, unspecif ied back pain laterality, unspecified chronicity M54.6 [place] [address] [id number] [address] [place] [address] Jun, Anxiety F41.9 and Thoracic b ack pain, unspecified back pain laterality, unspecified chronicity M54.6 [place] [address] [id number] [address] [place] [address] May, [facility] [address] [id number] [address] [place] [address] May, [facility] [address] [id number] [address] [place] [id number] May, [facility] [address] [id number] [address] [place] [address] May, Anxiety F41.9 and Encounter for medication monitoring Z51.81 [place] [address] [id number] [address] [place] [phone] May, Anxiety F41.9 and Thoracic b ack pain, unspecified back pain laterality, unspecified chronicity M54.6 [facility] [address] [id number] [address] [place] [address] Apr, Hyperlipidemia 272.4 [facility] [address] [id number] [address] [place] [address] Apr, Chronic pain G89.29 ; Anxiet y F41.9 ; Cervical radiculopathy M54.12 and Vision loss H54.7 [facility] [address] [id number] [address] [place] [phone] Apr, [facility] [address] [id number] [address] [place] [phone] Apr, Anxiety F41.9 and Thoracic b ack pain, unspecified back pain laterality, unspecified chronicity M54.6 [facility] [address] [id number] [address] [place] [address] Mar, [facility] [address] [id number] [address] [place] [address] Mar, Anxiety F41.9 and Thoracic b ack pain, unspecified back pain laterality, unspecified chronicity M54.6 [facility] [address] [id number] [address] [place] [phone] Feb, Anxiety F41.9 and Thoracic b ack pain, unspecified back pain laterality, unspecified chronicity M54.6 [facility] [address] [id number] [address] [place] [phone] Feb, Thoracic back pain, unspecif ied back pain laterality, unspecified chronicity M54.6 [facility] [address] [id number] [address] [place] [address] Jan, [facility] [address] [id number] [address] [place] [phone] Jan, Anxiety F41.9 and Thoracic b ack pain, unspecified back pain laterality, unspecified chronicity M54.6 [facility] [address] [id number] [address] [place] [address] Dec, Diarrhea of presumed infecti ous origin R19.7 [facility] [address] [id number] [address] [place] [phone] Dec, Diarrhea of presumed infecti ous origin R19.7 [facility] [address] [id number] [address] [place] [id number] 18 Dec, 2017 Thoracic back pain, unspecif ied back pain laterality, unspecified chronicity M54.6 [place] [address] [id number] [address] [place] [phone] 17 Dec, 2017 [place] [address] [facility] [id number] [address] [place] [address] 17 Dec, 2017 Anxiety F41.9 and Thoracic b ack pain, unspecified back pain laterality, unspecified chronicity M54.6 [place] [address] [id number] [address] [place] [address] Dec, Diarrhea of presumed infecti ous origin R19.7 [place] [address] [facility] [id number] [address] [place] [address] Dec, [place] [address] [facility] [id number] [address] [place] [phone] Dec, Anxiety F41.9 and Thoracic b ack pain, unspecified back pain laterality, unspecified chronicity M54.6 [place] [address] [facility] [id number] [address] [place] [address] Dec, Anxiety F41.9 and Thoracic b ack pain, unspecified back pain laterality, unspecified chronicity M54.6 [facility] [address] [place] [id number] Dec, Diarrhea of presumed infectious origin R 19.7 ; Anxiety F41.9 ; Thoracic back pain, unspecified back pain laterality, unspecified chronicity M54.6 and HTN (hypertension) I10 [place] [address] [facility] [id number] [address] [place] [id number] Dec, Anxiety F41.9 [facility] [employer] [address] [place] [id number] Dec, Anxiety F41.9 ; Diarrhea of presumed inf ectious origin R19.7 ; Generalized abdominal pain R10.84 and Localized edema R60.0 [place] [address] [facility] [id number] [address] [place] [address] Nov, [facility] [address] [place] [id number] Nov, Anxiety F41.9 ; Urinary retention R33.9 ; Diarrhea of presumed infectious origin R19.7 ; Weakness R53.1 ; Acute kidney failure, unspecified N17.9 ; Chronic kidney disease, stage III (moderate) N18.3 and Thoracic back pain, unspecified back pain laterality, unspecified chronicity M54.6 [place] [address] [id number] Oct, Thoracic back pain, unspecif ied back pain laterality, unspecified chronicity M54.6 and Anxiety F41.9 [place] [address] [address] Sep, Thoracic back pain, unspecif ied back pain laterality, unspecified chronicity M54.6 and Anxiety F41.9 [place] [address] [address] Sep, Thoracic back pain, unspecif ied back pain laterality, unspecified chronicity M54.6 ; Anxiety F41.9 and Encounter for medication monitoring Z51.81 [place] [address] [id number] August, [place] [address] [address] August, Thoracic back pain, unspecif ied back pain laterality, unspecified chronicity M54.6 and Anxiety F41.9 [place] [address] [id number] August, Hyperlipidemia E78.5 and HTN (hypertension) I10 [place] [address] [address] August, [place] [address] [place] [id number] [address] [place] [address] August, Medicare welcome exam Z00.00 ; Chronic kidney failure N18.9 ; Anxiety F41.9 ; Chronic pain G89.29 ; Insomnia G47.00 ; Hyperlipidemia E78.5 ; HTN (hypertension) I10 and Thoracic back pain, unspecified back pain laterality, unspecified chronicity M54.6 [facility] [address] [facility] [id number] [address] [place] [address] Jul, [facility] [address] [place] [id number] [address] [place] [address] Jul, [place] [address] [place] [id number] [place] [address] Jul, [place] [address] [place] [id number] [place] [address] Jul, Anxiety F41.9 [place] [address] [place] [id number] [place] [address] Jul, Thoracic back pain, unspecif ied back pain laterality, unspecified chronicity M54.6 and Anxiety F41.9 [place] [address] [place] [id number] [address] [place] [address] Jun, Thoracic back pain, unspecif ied back pain laterality, unspecified chronicity M54.6 and Anxiety F41.9 [place] [address] [place] [id number] [address] [place] [address] May, Thoracic back pain, unspecif ied back pain laterality, unspecified chronicity M54.6 and Anxiety F41.9 [place] [address] [place] [id number] [place] [address] Apr, Thoracic back pain, unspecif ied back pain laterality, unspecified chronicity M54.6 and Anxiety F41.9 [place] [address] [place] [id number] [place] [address] Mar, [place] [address] [place] [id number] [place] [address] Mar, Thoracic back pain, unspecif ied back pain laterality, unspecified chronicity M54.6 and Anxiety F41.9 [place] [address] [place] [id number] [address] [place] [address] Mar, Thoracic back pain, unspecif ied back pain laterality, unspecified chronicity M54.6 ; HTN (hypertension) I10 ; Hyperlipidemia E78.5 and Anxiety F41.9 [place] [address] [place] [id number] [address] [place] [address] Feb, Thoracic back pain, unspecif ied back pain laterality, unspecified chronicity M54.6 and Anxiety F41.9 [place] [address] [place] [id number] [place] [address] Nov, [place] [address] [address] Oct, [place] [address] [place] [id number] [place] [address] Oct, Thoracic back pain, unspecif ied back pain laterality, unspecified chronicity M54.6 [place] [address] [address] Oct, HTN (hypertension) I10 ; Con stipation K59.00 ; Hyperlipidemia E78.5 ; Thoracic back pain, unspecified back pain laterality, unspecified chronicity M54.6 ; Chronic pain G89.29 ; Anxiety F41.9 ; Chronic kidney failure N18.9 ; Environmental allergies Z91.09 ; Vitamin D deficiency E55.9 and Primary insomnia F51.01 [place] [id number] [place] [address] Sep, Anxiety F41.9 [place] [address] [place] [id number] [place] [address] Sep, [place] [address] [address] August, Anxiety F41.9 [place] [address] [place] [id number] [place] [address] August, [place] [address] [facility] [id number] [address] [place] [address] Jul, Anxiety F41.9 [facility] [address] [facility] [id number] [address] [place] [address] Jul, [facility] [address] [facility] [id number] [address] [place] [address] Jun, Anxiety F41.9 [facility] [address] [facility] [id number] [address] [place] [address] Jun, [facility] [address] [facility] [id number] [address] [place] [address] May, [facility] [address] [facility] [id number] [address] [place] [address] May, [facility] [address] [place] [id number] [address] [place] [address] May, [facility] [address] [facility] [id number] [address] [place] [address] Apr, [facility] [address] [facility] [id number] [address] [place] [address] Apr, [facility] [address] [place] [id number] [address] [place] [address] Apr, Anxiety F41.9 [facility] [address] [place] [id number] [address] [place] [address] Apr, Anxiety F41.9 [facility] [address] [facility] [id number] [address] [place] [address] Apr, [facility] [address] [place] [id number] [address] [place] [address] Mar, HTN (hypertension) I10 ; Phillip mor R25.1 ; Hypercholesterolemia E78.0 ; Constipation K59.00 ; Chronic pain G89.29 ; Hyperlipidemia E78.5 ; Insomnia G47.00 ; Anxiety F41.9 and Thoracic back pain, unspecified back pain laterality, unspecified chronicity M54.6 [facility] [address] [id number] [address] [place] [address] Mar, Tremor R25.1 ; HTN (hyperten stas) I10 ; Hypercholesterolemia E78.0 ; Constipation K59.00 ; Chronic pain G89.29 ; Hyperlipidemia E78.5 ; Insomnia G47.00 ; Anxiety F41.9 and Thoracic back pain, unspecified back pain laterality, unspecified chronicity M54.6 [facility] [address] [id number] [address] [place] [address] Mar, [facility] [address] [id number] [address] [place] [address] Mar, [facility] [address] [facility] [id number] [address] [place] [address] Feb, [facility] [address] [facility] [id number] [address] [place] [address] Jan, [facility] [address] [facility] [id number] [address] [place] [address] Jan, [facility] [address] [facility] [id number] [address] [place] [address] Dec, [facility] [address] [facility] [id number] [address] [place] [address] Nov, [facility] [address] [facility] [id number] [address] [place] [address] Nov, [facility] [address] [facility] [id number] [address] [place] [address] Oct, Anxiety F41.9 [facility] [address] [facility] [id number] [address] [place] [address] Oct, Chronic pain G89.29 [facility] [address] [facility] [id number] [address] [place] [address] Sep, [facility] [address] [facility] [id number] [address] [place] [address] Sep, [facility] [address] [facility] [id number] [address] [place] [address] Sep, [facility] [address] [facility] [id number] [address] [place] [address] Sep, [facility] [address] [facility] [id number] [address] [place] [address] Sep, Chronic pain syndrome G89.4 [place] [address] [facility] [id number] [address] [place] [address] Sep, HTN (hypertension) I10 ; Chr onic pain G89.29 ; Hypercholesterolemia E78.0 ; Chronic kidney failure N18.9 ; Constipation, unspecified constipation type K59.00 ; Anxiety F41.9 and Thoracic back pain, unspecified back pain laterality, unspecified chronicity M54.6 [place] [address] [facility] [id number] [address] [place] [address] August, Chronic pain syndrome G89.4 [place] [address] [facility] [id number] [address] [place] [address] August, Chronic pain syndrome G89.4 [place] [address] [facility] [id number] [address] [place] [address] Jul, Anxiety disorder, unspecifie d F41.9 and Chronic pain syndrome G89.4 [place] [address] [facility] [id number] [address] [place] [address] Jul, Insomnia, unspecified G47.00 and Chronic pain syndrome G89.4 [facility] [address] [facility] [id number] [address] [place] [address] Jul, Allergic rhinitis J30.9 [facility] [address] [facility] [id number] [address] [place] [address] Jul, Constipation, unspecified K5 9.00 [facility] [address] [facility] [id number] [address] [place] [address] Jul, [facility] [address] [facility] [id number] [address] [place] [address] Jun, [facility] [address] [id number] [address] [place] [phone] Jun, [facility] [address] [id number] [address] [place] [address] Jun, [facility] [address] [id number] [address] [place] [address] Jun, [facility] [address] [id number] [address] [place] [address] Jun, [facility] [address] [id number] [address] [place] [address] Jun, [facility] [address] [facility] [id number] [address] [place] [address] May, [facility] [address] [facility] [id number] [address] [place] [address] May, [facility] [address] [facility] [id number] [address] [place] [phone] May, Anxiety F41.9 ; Insomnia G47 .00 ; Hyperlipidemia E78.5 ; Chronic pain G89.29 ; HTN (hypertension) I10 ; Environmental allergies V15.09 and Constipation 564.00 [facility] [address] [facility] [id number] [address] [place] [phone] Apr, [facility] [address] [facility] [id number] [address] [place] [phone] Apr, [facility] [address] [facility] [id number] [address] [place] [phone] Apr, [facility] [address] [facility] [id number] [address] [place] [id number] Mar, [facility] [address] [facility] [id number] [address] [place] [phone] Mar, [facility] [address] [facility] [id number] [address] [place] [phone] Mar, [facility] [address] [id number] Feb, [facility] [address] [id number] Feb, [facility] [address] [id number] Feb, [facility] [address] [id number] Jan, HTN (hypertension) I10 ; Con stipation K59.00 ; Chronic pain G89.29 ; Hyperlipidemia E78.5 ; Hypercholesterolemia E78.0 ; Insomnia G47.00 and Anxiety F41.9 [place] [address] [id number] Jan, [place] [address] [id number] Dec, [facility] [address] [id number] Nov, [address] [id number] Oct, Chronic kidney disease, unsp ecified 585.9 ; Chronic pain syndrome 338.4 ; Hyperlipidemia 272.4 and Essential hypertension 401.[address] [address] Oct, Chronic kidney disease 585.9 [facility] [address] [address] Oct, [facility] [address] [place] [address] Oct, Chronic kidney disease, unsp ecified 585.9 ; Hypercalcemia 275.42 ; Hyperlipidemia 272.4 ; Essential hypertension 401.9 ; Chronic pain syndrome 338.4 ; Insomnia 780.52 ; Constipation 564.00 ; Environmental allergies V15.09 and Anxiety 300.00 [facility] [address] [id number] [address] [place] [address] 15 Oct, 2014 Chronic kidney disease 585.9 [facility] [address] [id number] [address] [place] [address] 15 Oct, 2014 [facility] [address] [id number] [address] [place] [address] 14 Oct, 2014 Chronic kidney disease 585.9 and Hyperlipidemia 272.4 [facility] [address] [id number] [address] [place] [address] Oct, [facility] [address] [id number] [address] [place] [address] Oct, [facility] [address] [id number] [address] [place] [address] 18 Sep, 2014 [facility] [address] [id number] [address] [place] [address] Sep, [facility] [address] [id number] [address] [place] [address] Sep, Chronic kidney disease 585.9 and Hyperlipidemia 272.4 [facility] [address] [id number] [address] [place] [address] Sep, [facility] [address] [id number] [address] [place] [address] August, [facility] [address] [id number] [address] [place] [address] August, [facility] [address] [id number] [address] [place] [address] Jul, [facility] [address] [id number] [address] [place] [address] 13 Jul, 2014 [facility] [address] [id number] [address] [place] [address] Jun, [facility] [address] [id number] [address] [place] [address], [place] [address] Jun, [facility] [address] [id number] [address] [place] [address], [place] [address] Jun, [facility] [address] [id number] [address] [place] [address], [place] [address] Jun, [facility] [address] [id number] [address] [place] [address], [place] [address] Jun, [facility] [address] [id number] [address] [place] [address], [place] [address] Jun, [facility] [address] [id number] [address] [place] [address], [place] [address] Jun, [facility] [address] [id number] [address] [place] [address], [place] [address] Jun, [facility] [address] [id number] [address] [place] [address], [place] [address] 16 May, 2014 [facility] [address] [id number] [address] [place] [address], [place] [address] May, [facility] [address] [id number] [address] [place] [address], [place] [address] May, [facility] [address] [id number] [address] [place] [address], [place] [address] May, [facility] [address] [id number] [address] [place] [address], [place] [address] Apr, [facility] [address] [id number] [address] [place] [address], [place] [address] Apr, [facility] [address] [id number] [address] [place] [address], [place] [address] Apr, [facility] [address] [id number] [address] [place] [address], [place] [address] Apr, [facility] [address] [id number] [address] [place] [address], [place] [address] Apr, [facility] [address] [id number] [address] [place] [address], [place] [address] Apr, [facility] [address] [id number] [address] [place] [address], [place] [address] Apr, [facility] [address] [id number] [address] [place] [address], [place] [address] Apr, [facility] [address] [id number] [address] [place] [address], [place] [address] Apr, [facility] [address] [id number] [address] [place] [address], [place] [address] Apr, [facility] [address] [id number] [address] [place] [address], [place] [address] Apr, [facility] [address] [id number] [address] [place] [address], [place] [address] Mar, [facility] [address] [id number] [address] [place] [address], [place] [address] Mar, [facility] [address] [id number] [address] [place] [address], [place] [address] Feb, [facility] [address] [id number] [address] [place] [address], [place] [address] Feb, [facility] [address] [id number] [address] [place] [address], [place] [address] Feb, [facility] [address] [id number] [address] [place] [address], [place] [address] Feb, [facility] [address] [id number] [address] [place] [address], [place] [address] Feb, [facility] [address] [id number] [address] [place] [address], [place] [address] Feb, [facility] [address] [id number] [address] [place] [address], [place] [address] Feb, [facility] [address] [id number] [address] [place] [address] Feb, [facility] [address] [id number] [address] [place] [address], [place] [address] Feb, [facility] [address] [id number] [address] [place] [address], [place] [address] Feb, [facility] [address] [id number] [address] [place] [address], [place] [address] Jan, [facility] [address] [id number] [address] [place] [address], [place] [address] Jan, [facility] [address] [id number] [address] [place] [address], [place] [address] Jan, [facility] [address] [id number] [address] [place] [address], [place] [address] Jan, [facility] [address] [id number] [address] [place] [address], [place] [address] Jan, [facility] [address] [id number] [address] [place] [address], [place] [address] Jan, [facility] [address] [id number] [address] [place] [address], [place] [address] Jan, [facility] [address] [id number] [address] [place] [address], [place] [address] Jan, [facility] [address] [id number] [address] [place] [address] 16 Jan, 2014 [facility] [address] [id number] [address] [place] [address] Jan, [facility] [address] [id number] [address] [place] [address], [place] [address] Jan, [facility] [address] [id number] [address] [place] [address], [place] [address] Dec, [facility] [address] [id number] [address] [place] [address], [place] [address] Dec, [facility] [address] [id number] [facility] [place] [address] 19 Dec, 2013 [facility] [address] [id number] [facility] [place] [address] 19 Dec, 2013 [facility] [address] [id number] [address] [place] [address], [place] [address] 18 Dec, 2013 [facility] [address] [id number] [address] [place] [address], [place] [address] 18 Dec, 2013 [facility] [address] [id number] [address] [place] [address], [place] [address] Dec, 2013 [facility] [address] [id number] [address] [place] [address], [place] [address] Dec, [facility] [address] [id number] [address] [place] [address], [place] [address] Nov, [facility] [address] [id number] [address] [place] [address], [place] [address] Nov, [facility] [address] [id number] [address] [place] [address], [place] [address] Nov, [facility] [address] [id number] [address] [place] [address], [place] [address] Nov, [facility] [address] [id number] [address] [place] [address], [place] [address] Nov, [facility] [address] [id number] [address] [place] [address], [place] [address] Nov, [facility] [address] [id number] [address] [place] [address], [place] [address] Nov, [facility] [address] [id number] [address] [place] [address], [place] [address] Nov, [facility] [address] [id number] [address] [place] [address], [place] [address] Oct, [facility] [address] [id number] [address] [place] [address], [place] [address] Oct, [facility] [address] [id number] [facility] [place] [address] Oct, [facility] [address] [id number] [address] [place] [address], [place] [address] Oct, [facility] [address] [id number] [address] [place] [address], [place] [address] Sep, [facility] [address] [id number] [address] [place] [address], [place] [address] Sep, [facility] [address] [id number] [address] [place] [address], [place] [address] Sep, [facility] [address] [id number] [address] [place] [address], [place] [address] Sep, [facility] [address] [id number] [address] [place] [address], [place] [address] Sep, [facility] [address] [id number] [address] [place] [address], [place] [address] Sep, [facility] [address] [id number] [address] [place] [address], [place] [address] Sep, [facility] [address] [id number] [address] [place] [address], [place] [address] Sep, [facility] [address] [id number] [address] [place] [address], [place] [address] August, [facility] [address] [id number] [address] [place] [address], [place] [address] August, [facility] [address] [id number] [address] [place] [address], [place] [address] August, [facility] [address] [id number] [address] [place] [address], [place] [address] August, [facility] [address] [id number] [address] [place] [address], [place] [address] August, [facility] [address] [id number] [address] [place] [address], [place] [address] August, [facility] [address] [id number] [address] [place] [address], [place] [address] August, [facility] [address] [id number] [address] [place] [address], [place] [address] August, [facility] [address] [id number] [address] [place] [address], [place] [address] August, [facility] [address] [id number] [address] [place] [address], [place] [address] August, [facility] [address] [id number] [address] [place] [address], [place] [address] Jul, [facility] [address] [id number] [address] [place] [address], [place] [address] Jul, [facility] [address] [id number] [address] [place] [address], [place] [address] Jul, [facility] [address] [id number] [address] [place] [address], [place] [address] Jul, [facility] [address] [id number] [address] [place] [address], [place] [address] Jul, [facility] [address] [id number] [address] [place] [address], [place] [address] Jul, [facility] [address] [id number] [address] [place] [address], [place] [address] Jul, [facility] [address] [id number] [address] [place] [address], [place] [address] Jul, [facility] [address] [id number] [address] [place] [address], [place] [address] Jun, [facility] [address] [id number] [address] [place] [address], [place] [address] Jun, [facility] [address] [id number] [address] [place] [address], [place] [address] Jun, [facility] [address] [id number] [facility] [place] [address] Jun, [facility] [address] [id number] [address] [place] [address], [place] [address] Jun, [facility] [address] [id number] [address] [place] [address], [place] [address] Jun, [facility] [address] [id number] [address] [place] [address], [place] [address] May, [facility] [address] [id number] [address] [place] [address], [place] [address] May, [facility] [address] [id number] [address] [place] [address], [place] [address] May, [facility] [address] [id number] [address] [place] [address], [place] [address] May, [facility] [address] [id number] [address] [place] [address], [place] [address] May, [facility] [address] [id number] [address] [place] [address], [place] [address] May, [facility] [address] [id number] [address] [place] [address], [place] [address] May, [facility] [address] [id number] [address] [place] [address], [place] [address] Apr, [facility] [address] [id number] [address] [place] [address], [place] [address] Apr, [facility] [address] [id number] [address] [place] [address], [place] [address] Apr, [facility] [address] [id number] [address] [place] [address], [place] [address] Apr, [facility] [address] [id number] [address] [place] [address], [place] [address] Apr, [facility] [address] [id number] [address] [place] [address], [place] [address] 10 Apr, 2013 [facility] [address] [id number] [address] [place] [address], [place] [address] 31 Mar, 2013 [facility] [address] [id number] [address] [place] [address], [place] [address] Mar, [facility] [address] [id number] [address] [place] [address], [place] [address] Mar, [facility] [address] [id number] [address] [place] [address], [place] [address] Mar, [facility] [address] [id number] [address] [place] [address], [place] [address] Mar, [facility] [address] [id number] [address] [place] [address], [place] [address] Mar, [facility] [address] [id number] [address] [place] [address], [place] [address] 16 Mar, 2013 [facility] [address] [id number] [address] [place] [address], [place] [address] 16 Mar, 2013 [facility] [address] [id number] [address] [place] [address], [place] [address] Mar, [facility] [address] [id number] [address] [place] [address], [place] [address] Mar, [facility] [address] [id number] [address] [place] [address], [place] [address] Feb, [facility] [address] [id number] [address] [place] [address], [place] [address] Feb, [facility] [address] [id number] [address] [place] [address], [place] [address] Feb, [facility] [address] [id number] [address] [place] [address], [place] [address] 25 Feb, 2013 [facility] [address] [id number] [address] [place] [address], [place] [address] 14 Feb, 2013 [facility] [address] [id number] [address] [place] [address], [place] [address] 14 Feb, 2013 [facility] [address] [id number] [address] [place] [address], [place] [address] Feb, [facility] [address] [id number] [address] [place] [address], [place] [address] Feb, [facility] [address] [id number] [address] [place] [address], [place] [address] Feb, [facility] [address] [id number] [address] [place] [address], [place] [address] Feb, [facility] [address] [id number] [address] [place] [address], [place] [address] Jan, [facility] [address] [id number] [address] [place] [address], [place] [address] Jan, [facility] [address] [id number] [address] [place] [address], [place] [address] Jan, [facility] [address] [id number] [address] [place] [address], [place] [address] Jan, [facility] [address] [id number] [address] [place] [address], [place] [address] Jan, [facility] [address] [id number] [address] [place] [address], [place] [address] Jan, [facility] [address] [id number] [address] [place] [address], [place] [address] Jan, [facility] [address] [id number] [address] [place] [address], [place] [address] Jan, [facility] [address] [id number] [address] [place] [address], [place] [address] Jan, [facility] [address] [id number] [address] [place] [address], [place] [address] 25 Dec, 2012 [facility] [address] [id number] [address] [place] [address], [place] [address] Dec, [facility] [address] [id number] [address] [place] [address], [place] [address] Dec, [facility] [address] [id number] [address] [place] [address], [place] [address] Dec, [facility] [address] [id number] [address] [place] [address], [place] [address] Nov, [facility] [address] [id number] [address] [place] [address], [place] [address] Nov, [facility] [address] [id number] [address] [place] [address], [place] [address] Nov, [facility] [address] [id number] [address] [place] [address], [place] [address] Nov, [facility] [address] [id number] [address] [place] [address], [place] [address] Nov, [facility] [address] [id number] [address] [place] [address], [place] [address] Nov, [facility] [address] [id number] [address] [place] [address], [place] [address] Oct, [facility] [address] [id number] [address] [place] [address], [place] [address] Oct, [facility] [address] [id number] [address] [place] [address], [place] [address] Oct, [facility] [address] [id number] [address] [place] [address], [place] [address] Oct, [facility] [address] [id number] [address] [place] [address], [place] [address] Sep, [facility] [address] [id number] [address] [place] [address], [place] [address] Sep, [facility] [address] [id number] [address] [place] [address], [place] [address] Sep, [facility] [address] [id number] [address] [place] [address], [place] [address] 14 Sep, 2012 [facility] [address] [id number] [address] [place] [address], [place] [address] 10 Sep, 2012 [facility] [address] [id number] [address] [place] [address], [place] [address] 17 Aug, 2012 [facility] [address] [id number] [address] [place] [address], [place] [address] 2012 [facility] [address] [id number] [address] [place] [address], [place] [address] 19 Jul, 2012 [facility] [address] [id number] [address] [place] [address], [place] [address] 19 Jul, 2012 [facility] [address] [id number] [address] [place] [address], [place] [address] 15 Jul, 2012 [facility] [address] [id number] [address] [place] [address], [place] [address] 09 Jul, 2012 [facility] [address] [id number] [address] [place] [address], [place] [address] 08 Jul, 2012 [facility] [address] [id number] [address] [place] [address], [place] [address] 26 Jun, 2012 [facility] [address] [id number] [address] [place] [address], [place] [address] 20 Jun, 2012 [facility] [address] [id number] [address] [place] [address], [place] [address] 15 Jun, 2012 [facility] [address] [id number] [address] [place] [address], [place] [address] 06 Jun, 2012 [facility] [address] [id number] [address] [place] [address], [place] [address] Jun, [facility] [address] [id number] [address] [place] [address], [place] [address] 28 May, 2012 [facility] [address] [id number] [address] [place] [address], [place] [address] May, [facility] [address] [id number] [address] [place] [address], [place] [address] May, [facility] [address] [id number] [address] [place] [address], [place] [address] May, [facility] [address] [id number] [address] [place] [address], [place] [address] May, [facility] [address] [id number] [address] [place] [address], [place] [address] May, [facility] [address] [id number] [address] [place] [address], [place] [address] May, [facility] [address] [id number] [address] [place] [address], [place] [address] May, [facility] [address] [id number] [address] [place] [address], [place] [address] May, [facility] [address] [id number] [address] [place] [address], [place] [address] Apr, [facility] [address] [id number] [address] [place] [address], [place] [address] Apr, [facility] [address] [id number] [address] [place] [address], [place] [address] Apr, [facility] [address] [id number] [address] [place] [address], [place] [address] Apr, [facility] [address] [id number] [address] [place] [address], [place] [address] Apr, [facility] [address] [id number] [address] [place] [address], [place] [address] Mar, [facility] [address] [id number] [address] [place] [address], [place] [address] Mar, [facility] [address] [id number] [address] [place] [address], [place] [address] Mar, [facility] [address] [id number] [address] [place] [address], [place] [address] 20 Mar, 2012 [facility] [address] [id number] [address] [place] [address], [place] [address] Mar, [facility] [address] [id number] [address] [place] [address] [id number] 19 Mar, 2012 [facility] [address] [id number] [address] [place] [address], [place] [address] 17 Mar, 2012 [facility] [address] [id number] [address] [place] [address], [place] [address] 17 Mar, 2012 [facility] [address] [id number] [address] [place] [address], [place] [address] Mar, [facility] [address] [id number] [address] [place] [address], [place] [address] Mar, [facility] [address] [id number] [address] [place] [address], [place] [address] 30 Feb, 2012 [facility] [address] [id number] [address] [place] [address], [place] [address] 30 Feb, 2012 [facility] [address] [id number] [address] [place] [address], [place] [address] 29 Feb, 2012 [facility] [address] [id number] [address] [place] [address], [place] [address] 29 Feb, 2012 [facility] [address] [id number] [address] [place] [address], [place] [address] Feb, [facility] [address] [id number] [address] [place] [address], [place] [address] Feb, [facility] [address] [id number] [address] [place] [address], [place] [address] Feb, [facility] [address] [id number] [address] [place] [address], [place] [address] 20 Feb, 2012 [facility] [address] [id number] [address] [place] [address], [place] [address] 16 Feb, 2012 [facility] [address] [id number] [address] [place] [address], [place] [address] 16 Feb, 2012 [facility] [address] [id number] [address] [place] [address], [place] [address] 13 Feb, 2012 [facility] [address] [id number] [address] [place] [address], [place] [address] 13 Feb, 2012 [facility] [address] [id number] [address] [place] [address], [place] [address] Feb, [facility] [address] [id number] [address] [place] [address], [place] [address] Feb, [facility] [address] [id number] [address] [place] [address], [place] [address] Feb, [facility] [address] [id number] [address] [place] [address], [place] [address] Feb, [facility] [address] [id number] [address] [place] [address] Feb, [facility] [address] [id number] [address] [place] [address], [place] [address] Feb, [facility] [address] [id number] [address] [place] [address] Jan, [facility] [address] [id number] [address] [place] [address] Jan, [facility] [address] [id number] [address] [place] [address] 31 Jan, 2012 [facility] [address] [id number] [address] [place] [address] 31 Jan, 2012 [facility] [address] [id number] [address] [place] [address] Jan, [facility] [address] [id number] [address] [place] [address] 24 Jan, 2012 [facility] [address] [id number] [address] [place] [address] Jan, [facility] [address] [id number] [address] [place] [address], [place] [address] Jan, [facility] [address] [id number] [address] [place] [address], [place] [address] Jan, [facility] [address] [id number] [address] [place] [address], [place] [address] Jan, [facility] [address] [id number] [address] [place] [address], [place] [address] 24 Dec, 2011 [facility] [address] [id number] [address] [place] [address], [place] [address] Dec, [facility] [address] [id number] [address] [place] [address], [place] [address] Dec, [facility] [address] [id number] [address] [place] [address], [place] [address] Dec, [facility] [address] [id number] [address] [place] [address], [place] [address] Nov, [facility] [address] [id number] [address] [place] [address], [place] [address] Nov, [facility] [address] [id number] [address] [place] [address], [place] [address] Nov, [facility] [address] [id number] [address] [place] [address], [place] [address] Nov, [facility] [address] [id number] [address] [place] [address], [place] [address] Nov, [facility] [address] [id number] [address] [place] [address], [place] [address] Nov, [facility] [address] [id number] [address] [place] [address], [place] [address] Oct, [facility] [address] [id number] [address] [place] [address], [place] [address] Oct, [facility] [address] [id number] [address] [place] [address], [place] [address] 06 Oct, 2011 [facility] [address] [id number] [address] [place] [address], [place] [address] Oct, [facility] [address] [id number] [address] [place] [address], [place] [address] Oct, [facility] [address] [id number] [address] [place] [address], [place] [address] Sep, [facility] [address] [id number] [address] [place] [address], [place] [address] Sep, [facility] [address] [id number] [address] [place] [address], [place] [address] Sep, [facility] [address] [id number] [address] [place] [address], [place] [address] Sep, [facility] [address] [id number] [address] [place] [address], [place] [address] Sep, [facility] [address] [id number] [address] [place] [address], [place] [address] August, [facility] [address] [id number] [address] [place] [address], [place] [address] August, [facility] [address] [id number] [address] [place] [address], [place] [address] August, [facility] [address] [id number] [address] [place] [address], [place] [address] August, [facility] [address] [id number] [address] [place] [address], [place] [address] Jul, [facility] [address] [id number] [address] [place] [address], [place] [address] Jul, [facility] [address] [id number] [address] [place] [address], [place] [address] Jul, [facility] [address] [id number] [address] [place] [address], [place] [address] Jul, [facility] [address] [id number] [facility] [place] [address] 18 Jul, 2011 [facility] [address] [id number] [address] [place] [address], [place] [address] Jul, [facility] [address] [id number] [address] [place] [address], [place] [address] Jul, [facility] [address] [id number] [address] [place] [address], [place] [address] 10 Jul, 2011 [facility] [address] [id number] [address] [place] [address], [place] [address] Jul, [facility] [address] [id number] [address] [place] [address], [place] [address] Jul, [facility] [address] [id number] [address] [place] [address], [place] [address] 05 Jul, 2011 [facility] [address] [id number] [address] [place] [address], [place] [address] Jul, [facility] [address] [id number] [address] [place] [address], [place] [address] Jul, [facility] [address] [id number] [address] [place] [address], [place] [address] Jul, [facility] [address] [id number] [address] [place] [address], [place] [address] 28 Jun, 2011 [facility] [address] [id number] [address] [place] [address], [place] [address] 27 Jun, 2011 [facility] [address] [id number] [address] [place] [address], [place] [address] 20 Jun, 2011 [facility] [address] [id number] [address] [place] [address], [place] [address] 16 Jun, 2011 [facility] [address] [id number] [address] [place] [address], [place] [address] May, [facility] [address] [id number] [address] [place] [address], [place] [address] 16 May, 2011 [facility] [address] [id number] [address] [place] [address], [place] [address] 09 May, 2011 [facility] [address] [id number] [address] [place] [address], [place] [address] Apr, [facility] [address] [id number] [address] [place] [address], [place] [address] 18 Apr, 2011 [facility] [address] [id number] [address] [place] [address], [place] [address] 13 Apr, 2011 [facility] [address] [id number] [address] [place] [address], [place] [address] Apr, [facility] [address] [id number] [address] [place] [address], [place] [address] Apr, [facility] [address] [id number] [address] [place] [address], [place] [address] Mar, [facility] [address] [id number] [address] [place] [address], [place] [address] Mar, [facility] [address] [id number] [address] [place] [address], [place] [address] Mar, [facility] [address] [id number] [address] [place] [address], [place] [address] Mar, [facility] [address] [id number] [address] [place] [address], [place] [address] Mar, [facility] [address] [id number] [address] [place] [address], [place] [address] Mar, [facility] [address] [id number] [address] [place] [address], [place] [address] 05 Mar, 2011 [facility] [address] [id number] [address] [place] [address], [place] [address] Feb, [facility] [address] [id number] [address] [place] [address], [place] [address] Feb, [facility] [address] [id number] [address] [place] [address], [place] [address] Feb, [facility] [address] [id number] [address] [place] [address], [place] [address] 22 Feb, 2011 [facility] [address] [id number] [address] [place] [address], [place] [address] 16 Feb, 2011 [facility] [address] [id number] [address] [place] [address], [place] [address] 14 Feb, 2011 [facility] [address] [id number] [address] [place] [address], [place] [address] 10 Feb, 2011 [facility] [address] [id number] [address] [place] [address], [place] [address] 31 Jan, 2011 [facility] [address] [id number] [address] [place] [address], [place] [address] 31 Jan, 2011 [facility] [address] [id number] [address] [place] [address], [place] [address] 31 Jan, 2011 [facility] [address] [id number] [address] [place] [address], [place] [address] 18 Jan, 2011 [facility] [address] [id number] [address] [place] [address], [place] [address] 17 Jan, 2011 [facility] [address] [id number] [address] [place] [address], [place] [address] 17 Jan, 2011 [facility] [address] [id number] [address] [place] [address] Jun, [facility] [address] [id number] [address] [place] [address], [place] [address] 30 Mar, 2010 [facility] [address] [id number] [address] [place] [address], [place] [address] Mar, [facility] [address] [id number] [address] [place] [address], [place] [address] 14 Mar, 2010 [facility] [address] [id number] [address] [place] [address] 14 Mar, 2010 [facility] [address] [id number] [address] [place] [address], [place] [address] 13 Mar, 2010 [facility] [address] [id number] [address] [place] [address] 07 Mar, 2010 [facility] [address] [id number] [address] [place] [address], [place] [address] 02 Mar, 2010 [facility] [address] [id number] [address] [place] [address] Mar, [facility] [address] [id number] [address] [place] [address], [place] [address] 30 Feb, 2010 [facility] [address] [id number] [address] [place] [address] 29 Feb, 2010 [facility] [address] [id number] [address] [place] [address] 17 Feb, 2010 [facility] [address] [id number] [address] [place] [address] 17 Feb, 2010 [facility] [address] [id number] [address] [place] [address] 16 Feb, 2010 [facility] [address] [id number] [address] [place] [address] 08 Feb, 2010 [facility] [address] [id number] [address] [place] [address] 04 Feb, 2010 [facility] [address] [id number] [address] [place] [address] Feb, [facility] [address] [id number] [address] [place] [address] Jan, [facility] [address] [id number] [address] [place] [address] Jan, [facility] [address] [id number] [address] [place] [address] Jan, [facility] [address] [id number] [address] [place] [address] Jan, [facility] [address] [id number] [address] [place] [address] Mar, [facility] [address] [id number] [address] [place] [address] Mar, [facility] [address] [id number] [address] [place] [address] Mar, [facility] [address] [id number] [address] [place] [address] Mar, [facility] [address] [id number] [address] [place] [address] Mar, [facility] [address] [id number] [address] [place] [address] Mar, [facility] [address] [id number] [address] [place] [address] Feb, [facility] [address] [id number] [address] [place] [address] Feb, [facility] [address] [id number] [address] [place] [address] Jan, [facility] [address] [id number] [address] [place] [address] Sep, [facility] [address] [id number] [address] [place] [address] May, IMMUNIZATIONS No Known Immunizations SOCIAL HISTORY [...] History Left ear surgery Hospitalization History [facility] in [place]- Spontane ous Pneumothorax Hospitalization History [facility]- Colon resection Hospitalization History [facility] - diarrhea/ couldnt urin ate nov 2017 Hospitalization History pain /hip to foot right side 10/16/19 19
--- OUTSIDE RECORDS SUMMARY | 2019-08-28 09:18 | XMS REPORT ---
Author Author Dixon Lundberg Doctor Organization [facility] Address Unknown Phone Unavailable Care Team Providers Care Char Filter Operator Name Role Phone Migration, Doctor Unavailable Unavailable PROBLEMS Type Condition ICD9-CM Code LCH92-BC Code Onset Dates Condition S tatus SNOMED Code Problem Insomnia G47.00 Active 399876343 Problem Anxiety F41.9 Active 15927975 Problem HTN (hypertension) I10 Active 3 6124333 Problem Hyperlipidemia E78.5 Active 55873 004 Problem Thoracic back pain, unspecif ied back pain laterality, unspecified chronicity M54.6 Active 291976036 Problem Vitamin D deficiency E55.9 Active 99727192 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 [id number] [address] [place] [phone] Oct, [facility] [address] [facility] [id number] [address] [place] [id number] Oct, Schizophrenia, unspecified t ype F20.9 and Acute kidney injury N17.9 [facility] [address] [facility] [id number] [address] [place] [id number] Oct, [facility] [address] [facility] [id number] [address] [place] [id number] Oct, [place] [address] [facility] [id number] [address] [place] [id number] Oct, Thoracic back pain, unspecif ied back pain laterality, unspecified chronicity M54.6 [facility] [address] [id number] [address] [place] [address] Oct, [facility] [address] [id number] [address] [place] [id number] Oct, [facility] [address] [id number] [address] [place] [id number] Sep, Anxiety F41.9 [facility] [address] [id number] [address] [place] [id number] Sep, [facility] [address] [id number] [address] [place] [id number] Sep, Thoracic back pain, unspecif ied back pain laterality, unspecified chronicity M54.6 [facility] [address] [id number] [address] [place] [id number] Sep, [facility] [address] [id number] [address] [place] [id number] Sep, [facility] [address] [id number] [address] [place] [id number] Sep, [facility] [address] [id number] [address] [place] [phone] Sep, [facility] [address] [id number] [address] [place] [id number] Sep, [facility] [address] [id number] [address] [place] [id number] Sep, [facility] [address] [id number] [address] [place] [id number] Sep, Chronic pain G89.29 ; Chroni c kidney disease, stage III (moderate) N18.3 ; Hyperlipidemia E78.5 and Insomnia G47.00 [facility] [address] [id number] [address] [place] [id number] Sep, Thoracic back pain, unspecif ied back pain laterality, unspecified chronicity M54.6 [facility] [address] [id number] [address] [place] [phone] August, Anxiety F41.9 [facility] [address] [id number] [address] [place] [id number] August, Thoracic back pain, unspecif ied back pain laterality, unspecified chronicity M54.6 and Anxiety F41.9 [facility] [address] [id number] [address] [place] [id number] August, 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 [facility] [address] [id number] [address] [place] [id number] August, 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 [facility] [address] [id number] [address] [place] [id number] August, [facility] [address] [id number] [address] [place] [phone] August, [facility] [address] [id number] [address] [place] [id number] August, Thoracic back pain, unspecif ied back pain laterality, unspecified chronicity M54.6 [facility] [address] [id number] [address] [place] [id number] August, [facility] [address] [id number] [address] [place] [id number] August, Anxiety F41.9 and Thoracic b ack pain, unspecified back pain laterality, unspecified chronicity M54.6 [facility] [address] [id number] [address] [place] [id number] Jul, [facility] [address] [facility] [id number] [address] [place] [address] Jul, Thoracic back pain, unspecif ied back pain laterality, unspecified chronicity M54.6 [facility] [address] [id number] [address] [place] [id number] Jun, Anxiety F41.9 and Thoracic b ack pain, unspecified back pain laterality, unspecified chronicity M54.6 [facility] [address] [id number] [address] [place] [id number] 08 Jun, 2018 Anxiety F41.9 and Thoracic b ack pain, unspecified back pain laterality, unspecified chronicity M54.6 [facility] [address] [id number] [address] [place] [address] Jun, Thoracic back pain, unspecif ied back pain laterality, unspecified chronicity M54.6 [place] [address] [id number] [address] [place] [address] Jun, Anxiety F41.9 and Thoracic b ack pain, unspecified back pain laterality, unspecified chronicity M54.6 [place] [address] [id number] [address] [place] [id number] May, [facility] [address] [id number] [address] [place] [id number] May, [facility] [address] [id number] [address] [place] [id number] May, [facility] [address] [id number] [address] [place] [address] May, Anxiety F41.9 and Encounter for medication monitoring Z51.81 [place] [address] [id number] [address] [place] [address] May, Anxiety F41.9 and Thoracic b ack pain, unspecified back pain laterality, unspecified chronicity M54.6 [facility] [address] [id number] [address] [place] [address] Apr, Hyperlipidemia 272.4 [facility] [address] [id number] [address] [place] [address] Apr, Chronic pain G89.29 ; Anxiet y F41.9 ; Cervical radiculopathy M54.12 and Vision loss H54.7 [facility] [address] [id number] [address] [place] [id number] Apr, [facility] [address] [id number] [address] [place] [id number] Apr, Anxiety F41.9 and Thoracic b ack pain, unspecified back pain laterality, unspecified chronicity M54.6 [facility] [address] [id number] [address] [place] [id number] Mar, [facility] [address] [id number] [address] [place] [id number] Mar, Anxiety F41.9 and Thoracic b ack pain, unspecified back pain laterality, unspecified chronicity M54.6 [facility] [address] [id number] [address] [place] [address] Feb, Anxiety F41.9 and Thoracic b ack pain, unspecified back pain laterality, unspecified chronicity M54.6 [facility] [address] [id number] [address] [place] [id number] Feb, Thoracic back pain, unspecif ied back pain laterality, unspecified chronicity M54.6 [facility] [address] [id number] [address] [place] [id number] Jan, [facility] [address] [id number] [address] [place] [phone] Jan, Anxiety F41.9 and Thoracic b ack pain, unspecified back pain laterality, unspecified chronicity M54.6 [facility] [address] [id number] [address] [place] [id number] Dec, Diarrhea of presumed infecti ous origin R19.7 [facility] [address] [id number] [address] [place] [id number] Dec, Diarrhea of presumed infecti ous origin R19.7 [facility] [address] [id number] [address] [place] [id number] 18 Dec, 2017 Thoracic back pain, unspecif ied back pain laterality, unspecified chronicity M54.6 [place] [address] [id number] [address] [place] [id number] 17 Dec, 2017 [place] [address] [facility] [id number] [address] [place] [id number] 17 Dec, 2017 Anxiety F41.9 and Thoracic b ack pain, unspecified back pain laterality, unspecified chronicity M54.6 [place] [address] [id number] [address] [place] [id number] Dec, Diarrhea of presumed infecti ous origin R19.7 [place] [address] [facility] [id number] [address] [place] [id number] Dec, [place] [address] [facility] [id number] [address] [place] [phone] Dec, Anxiety F41.9 and Thoracic b ack pain, unspecified back pain laterality, unspecified chronicity M54.6 [place] [address] [facility] [id number] [address] [place] [id number] Dec, Anxiety F41.9 and Thoracic b ack pain, unspecified back pain laterality, unspecified chronicity M54.6 [facility] [address] [place] [id number] Dec, Diarrhea of presumed infectious origin R 19.7 ; Anxiety F41.9 ; Thoracic back pain, unspecified back pain laterality, unspecified chronicity M54.6 and HTN (hypertension) I10 [place] [address] [facility] [id number] [address] [place] [address] Dec, Anxiety F41.9 [facility] [address] [place] [id number] Dec, Anxiety F41.9 ; Diarrhea of presumed inf ectious origin R19.7 ; Generalized abdominal pain R10.84 and Localized edema R60.0 [place] [address] [facility] [id number] [address] [place] [address] Nov, [facility] [address] [place] [id number] Nov, Anxiety F41.9 ; Urinary retention R33.9 ; Diarrhea of presumed infectious origin R19.7 ; Weakness R53.1 ; Acute kidney failure, unspecified N17.9 ; Chronic kidney disease, stage III (moderate) N18.3 and Thoracic back pain, unspecified back pain laterality, unspecified chronicity M54.6 [place] [address] [id number] Oct, Thoracic back pain, unspecif ied back pain laterality, unspecified chronicity M54.6 and Anxiety F41.9 [place] [address] [address] Sep, Thoracic back pain, unspecif ied back pain laterality, unspecified chronicity M54.6 and Anxiety F41.9 [place] [address] [address] Sep, Thoracic back pain, unspecif ied back pain laterality, unspecified chronicity M54.6 ; Anxiety F41.9 and Encounter for medication monitoring Z51.81 [place] [address] [address] August, [place] [address] [address] August, Thoracic back pain, unspecif ied back pain laterality, unspecified chronicity M54.6 and Anxiety F41.9 [place] [address] [address] August, Hyperlipidemia E78.5 and HTN (hypertension) I10 [place] [address] [address] August, [place] [address] [place] [id number] [address] [place] [address] August, Medicare welcome exam Z00.00 ; Chronic kidney failure N18.9 ; Anxiety F41.9 ; Chronic pain G89.29 ; Insomnia G47.00 ; Hyperlipidemia E78.5 ; HTN (hypertension) I10 and Thoracic back pain, unspecified back pain laterality, unspecified chronicity M54.6 [facility] [address] [facility] [id number] [address] [place] [phone] Jul, [facility] [address] [place] [id number] [address] [place] [phone] Jul, [place] [address] [place] [id number] [place] [address] Jul, [place] [address] [place] [id number] [place] [address] Jul, Anxiety F41.9 [place] [address] [place] [id number] [place] [address] Jul, Thoracic back pain, unspecif ied back pain laterality, unspecified chronicity M54.6 and Anxiety F41.9 [place] [address] [place] [id number] [place] [address] Jun, Thoracic back pain, unspecif ied back pain laterality, unspecified chronicity M54.6 and Anxiety F41.9 [place] [address] [place] [id number] [place] [address] May, Thoracic back pain, unspecif ied back pain laterality, unspecified chronicity M54.6 and Anxiety F41.9 [place] [address] [place] [id number] [place] [address] Apr, Thoracic back pain, unspecif ied back pain laterality, unspecified chronicity M54.6 and Anxiety F41.9 [place] [address] [place] [id number] [place] [address] Mar, [place] [address] [place] [id number] [place] [address] Mar, Thoracic back pain, unspecif ied back pain laterality, unspecified chronicity M54.6 and Anxiety F41.9 [place] [address] [place] [id number] [address] [place] [id number] Mar, Thoracic back pain, unspecif ied back pain laterality, unspecified chronicity M54.6 ; HTN (hypertension) I10 ; Hyperlipidemia E78.5 and Anxiety F41.9 [place] [address] [place] [id number] [address] [place] [address] Feb, Thoracic back pain, unspecif ied back pain laterality, unspecified chronicity M54.6 and Anxiety F41.9 [place] [address] [place] [id number] [place] [address] Nov, [place] [address] [address] Oct, [place] [address] [place] [id number] [place] [address] Oct, Thoracic back pain, unspecif ied back pain laterality, unspecified chronicity M54.6 [place] [address] [id number] Oct, HTN (hypertension) I10 ; Con stipation K59.00 ; Hyperlipidemia E78.5 ; Thoracic back pain, unspecified back pain laterality, unspecified chronicity M54.6 ; Chronic pain G89.29 ; Anxiety F41.9 ; Chronic kidney failure N18.9 ; Environmental allergies Z91.09 ; Vitamin D deficiency E55.9 and Primary insomnia F51.01 [place] [id number] [place] [address] Sep, Anxiety F41.9 [place] [address] [place] [id number] [place] [address] Sep, [place] [address] [address] August, Anxiety F41.9 [place] [address] [place] [id number] [place] [address] August, [place] [address] [facility] [id number] [address] [place] [address] Jul, Anxiety F41.9 [facility] [address] [facility] [id number] [address] [place] [address] Jul, [facility] [address] [facility] [id number] [address] [place] [address] Jun, Anxiety F41.9 [facility] [address] [facility] [id number] [address] [place] [address] Jun, [facility] [address] [facility] [id number] [address] [place] [address] May, [facility] [address] [facility] [id number] [address] [place] [address] May, [facility] [address] [place] [id number] [place] [address] May, [facility] [address] [facility] [id number] [address] [place] [address] Apr, [facility] [address] [facility] [id number] [address] [place] [address] Apr, [facility] [address] [place] [id number] [address] [place] [address] Apr, Anxiety F41.9 [facility] [address] [place] [id number] [place] [address] Apr, Anxiety F41.9 [facility] [address] [facility] [id number] [address] [place] [address] Apr, [facility] [address] [place] [id number] [place] [address] Mar, HTN (hypertension) I10 ; Phillip mor R25.1 ; Hypercholesterolemia E78.0 ; Constipation K59.00 ; Chronic pain G89.29 ; Hyperlipidemia E78.5 ; Insomnia G47.00 ; Anxiety F41.9 and Thoracic back pain, unspecified back pain laterality, unspecified chronicity M54.6 [facility] [address] [id number] [address] [place] [address] Mar, Tremor R25.1 ; HTN (hyperten stas) I10 ; Hypercholesterolemia E78.0 ; Constipation K59.00 ; Chronic pain G89.29 ; Hyperlipidemia E78.5 ; Insomnia G47.00 ; Anxiety F41.9 and Thoracic back pain, unspecified back pain laterality, unspecified chronicity M54.6 [facility] [address] [id number] [address] [place] [id number] Mar, [facility] [address] [id number] [address] [place] [address] Mar, [facility] [address] [facility] [id number] [address] [place] [phone] Feb, [facility] [address] [facility] [id number] [address] [place] [address] Jan, [facility] [address] [facility] [id number] [address] [place] [id number] Jan, [facility] [address] [facility] [id number] [address] [place] [phone] Dec, [facility] [address] [facility] [id number] [address] [place] [address] Nov, [facility] [address] [facility] [id number] [address] [place] [address] Nov, [facility] [address] [facility] [id number] [address] [place] [address] Oct, Anxiety F41.9 [facility] [address] [facility] [id number] [address] [place] [address] Oct, Chronic pain G89.29 [facility] [address] [facility] [id number] [address] [place] [id number] Sep, [facility] [address] [facility] [id number] [address] [place] [address] Sep, [facility] [address] [facility] [id number] [address] [place] [address] Sep, [facility] [address] [facility] [id number] [address] [place] [address] Sep, [facility] [address] [facility] [id number] [address] [place] [address] Sep, Chronic pain syndrome G89.4 [place] [address] [facility] [id number] [address] [place] [address] Sep, HTN (hypertension) I10 ; Chr onic pain G89.29 ; Hypercholesterolemia E78.0 ; Chronic kidney failure N18.9 ; Constipation, unspecified constipation type K59.00 ; Anxiety F41.9 and Thoracic back pain, unspecified back pain laterality, unspecified chronicity M54.6 [place] [address] [facility] [id number] [address] [place] [address] August, Chronic pain syndrome G89.4 [place] [address] [facility] [id number] [address] [place] [address] August, Chronic pain syndrome G89.4 [place] [address] [facility] [id number] [address] [place] [address] Jul, Anxiety disorder, unspecifie d F41.9 and Chronic pain syndrome G89.4 [place] [address] [facility] [id number] [address] [place] [address] Jul, Insomnia, unspecified G47.00 and Chronic pain syndrome G89.4 [facility] [address] [facility] [id number] [address] [place] [address] Jul, Allergic rhinitis J30.9 [facility] [address] [facility] [id number] [address] [place] [address] Jul, Constipation, unspecified K5 9.00 [facility] [address] [facility] [id number] [address] [place] [address] Jul, [facility] [address] [facility] [id number] [address] [place] [id number] Jun, [facility] [address] [id number] [address] [place] [id number] Jun, [facility] [address] [id number] [address] [place] [id number] Jun, [facility] [address] [id number] [address] [place] [address] Jun, [facility] [address] [id number] [address] [place] [id number] Jun, [facility] [address] [id number] [address] [place] [phone] Jun, [facility] [address] [facility] [id number] [address] [place] [address] May, [facility] [address] [facility] [id number] [address] [place] [address] May, [facility] [address] [facility] [id number] [address] [place] [address] May, Anxiety F41.9 ; Insomnia G47 .00 ; Hyperlipidemia E78.5 ; Chronic pain G89.29 ; HTN (hypertension) I10 ; Environmental allergies V15.09 and Constipation 564.00 [facility] [address] [facility] [id number] [address] [place] [id number] Apr, [facility] [address] [facility] [id number] [address] [place] [id number] Apr, [facility] [address] [facility] [id number] [address] [place] [phone] Apr, [facility] [address] [facility] [id number] [address] [place] [id number] Mar, [facility] [address] [facility] [id number] [address] [place] [id number] Mar, [facility] [address] [facility] [id number] [address] [place] [id number] Mar, [facility] [address] [id number] Feb, [facility] [address] [id number] Feb, [facility] [address] [id number] Feb, [facility] [address] [id number] Jan, HTN (hypertension) I10 ; Con stipation K59.00 ; Chronic pain G89.29 ; Hyperlipidemia E78.5 ; Hypercholesterolemia E78.0 ; Insomnia G47.00 and Anxiety F41.9 [place] [address] [id number] Jan, [place] [address] [id number] Dec, [facility] [address] [id number] Nov, [address] [id number] Oct, Chronic kidney disease, unsp ecified 585.9 ; Chronic pain syndrome 338.4 ; Hyperlipidemia 272.4 and Essential hypertension 401.[address] [address] Oct, Chronic kidney disease 585.9 [facility] [address] [id number] Oct, [facility] [address] [place] [id number] Oct, Chronic kidney disease, unsp ecified 585.9 ; Hypercalcemia 275.42 ; Hyperlipidemia 272.4 ; Essential hypertension 401.9 ; Chronic pain syndrome 338.4 ; Insomnia 780.52 ; Constipation 564.00 ; Environmental allergies V15.09 and Anxiety 300.00 [facility] [address] [address] [id number] [address] [place] [address] 15 Oct, 2014 Chronic kidney disease 585.9 [facility] [address] [id number] [address] [place] [address] 15 Oct, 2014 [facility] [address] [id number] [address] [place] [address] 14 Oct, 2014 Chronic kidney disease 585.9 and Hyperlipidemia 272.4 [facility] [address] [id number] [address] [place] [address] Oct, [facility] [address] [id number] [address] [place] [address] Oct, [facility] [address] [id number] [address] [place] [address] 18 Sep, 2014 [facility] [address] [id number] [address] [place] [address] Sep, [facility] [address] [id number] [address] [place] [address] Sep, Chronic kidney disease 585.9 and Hyperlipidemia 272.4 [facility] [address] [id number] [address] [place] [address] Sep, [facility] [address] [id number] [address] [place] [address] August, [facility] [address] [id number] [address] [place] [address] August, [facility] [address] [id number] [address] [place] [address] Jul, [facility] [address] [id number] [address] [place] [address] 13 Jul, 2014 [facility] [address] [id number] [address] [place] [address] Jun, [facility] [address] [id number] [address] [place] [address], [place] [address] Jun, [facility] [address] [id number] [address] [place] [address], [place] [address] Jun, [facility] [address] [id number] [address] [place] [address], [place] [address] Jun, [facility] [address] [id number] [address] [place] [address], [place] [address] Jun, [facility] [address] [id number] [address] [place] [address], [place] [address] Jun, [facility] [address] [id number] [address] [place] [address], [place] [address] Jun, [facility] [address] [id number] [address] [place] [address], [place] [address] Jun, [facility] [address] [id number] [address] [place] [address], [place] [address] 16 May, 2014 [facility] [address] [id number] [address] [place] [address], [place] [address] May, [facility] [address] [id number] [address] [place] [address], [place] [address] May, [facility] [address] [id number] [address] [place] [address], [place] [address] May, [facility] [address] [id number] [address] [place] [address], [place] [address] Apr, [facility] [address] [id number] [address] [place] [address], [place] [address] Apr, [facility] [address] [id number] [address] [place] [address], [place] [address] Apr, [facility] [address] [id number] [address] [place] [address], [place] [address] Apr, [facility] [address] [id number] [address] [place] [address], [place] [address] Apr, [facility] [address] [id number] [address] [place] [address], [place] [address] Apr, [facility] [address] [id number] [address] [place] [address], [place] [address] Apr, [facility] [address] [id number] [address] [place] [address], [place] [address] Apr, [facility] [address] [id number] [address] [place] [address], [place] [address] Apr, [facility] [address] [id number] [address] [place] [address], [place] [address] Apr, [facility] [address] [id number] [address] [place] [address], [place] [address] Apr, [facility] [address] [id number] [address] [place] [address], [place] [address] Mar, [facility] [address] [id number] [address] [place] [address], [place] [address] Mar, [facility] [address] [id number] [address] [place] [address], [place] [address] Feb, [facility] [address] [id number] [address] [place] [address], [place] [address] Feb, [facility] [address] [id number] [address] [place] [address], [place] [address] Feb, [facility] [address] [id number] [address] [place] [address], [place] [address] Feb, [facility] [address] [id number] [address] [place] [address], [place] [address] Feb, [facility] [address] [id number] [address] [place] [address], [place] [address] Feb, [facility] [address] [id number] [address] [place] [address], [place] [address] Feb, [facility] [address] [id number] [address] [place] [address] Feb, [facility] [address] [id number] [address] [place] [address], [place] [address] Feb, [facility] [address] [id number] [address] [place] [address], [place] [address] Feb, [facility] [address] [id number] [address] [place] [address], [place] [address] Jan, [facility] [address] [id number] [address] [place] [address], [place] [address] Jan, [facility] [address] [id number] [address] [place] [address], [place] [address] Jan, [facility] [address] [id number] [address] [place] [address], [place] [address] Jan, [facility] [address] [id number] [address] [place] [address], [place] [address] Jan, [facility] [address] [id number] [address] [place] [address], [place] [address] Jan, [facility] [address] [id number] [address] [place] [address], [place] [address] Jan, [facility] [address] [id number] [address] [place] [address], [place] [address] Jan, [facility] [address] [id number] [address] [place] [address] 16 Jan, 2014 [facility] [address] [id number] [address] [place] [address] Jan, [facility] [address] [id number] [address] [place] [address], [place] [address] Jan, [facility] [address] [id number] [address] [place] [address], [place] [address] Dec, [facility] [address] [id number] [address] [place] [address], [place] [address] Dec, [facility] [address] [id number] [facility] [place] [address] 19 Dec, 2013 [facility] [address] [id number] [facility] [place] [address] 19 Dec, 2013 [facility] [address] [id number] [address] [place] [address], [place] [address] 18 Dec, 2013 [facility] [address] [id number] [address] [place] [address], [place] [address] 18 Dec, 2013 [facility] [address] [id number] [address] [place] [address], [place] [address] Dec, 2013 [facility] [address] [id number] [address] [place] [address], [place] [address] Dec, [facility] [address] [id number] [address] [place] [address], [place] [address] Nov, [facility] [address] [id number] [address] [place] [address], [place] [address] Nov, [facility] [address] [id number] [address] [place] [address], [place] [address] Nov, [facility] [address] [id number] [address] [place] [address], [place] [address] Nov, [facility] [address] [id number] [address] [place] [address], [place] [address] Nov, [facility] [address] [id number] [address] [place] [address], [place] [address] Nov, [facility] [address] [id number] [address] [place] [address], [place] [address] Nov, [facility] [address] [id number] [address] [place] [address], [place] [address] Nov, [facility] [address] [id number] [address] [place] [address], [place] [address] Oct, [facility] [address] [id number] [address] [place] [address], [place] [address] Oct, [facility] [address] [id number] [facility] [place] [address] Oct, [facility] [address] [id number] [address] [place] [address], [place] [address] Oct, [facility] [address] [id number] [address] [place] [address], [place] [address] Sep, [facility] [address] [id number] [address] [place] [address], [place] [address] Sep, [facility] [address] [id number] [address] [place] [address], [place] [address] Sep, [facility] [address] [id number] [address] [place] [address], [place] [address] Sep, [facility] [address] [id number] [address] [place] [address], [place] [address] Sep, [facility] [address] [id number] [address] [place] [address], [place] [address] Sep, [facility] [address] [id number] [address] [place] [address], [place] [address] Sep, [facility] [address] [id number] [address] [place] [address], [place] [address] Sep, [facility] [address] [id number] [address] [place] [address], [place] [address] August, [facility] [address] [id number] [address] [place] [address], [place] [address] August, [facility] [address] [id number] [address] [place] [address], [place] [address] August, [facility] [address] [id number] [address] [place] [address], [place] [address] August, [facility] [address] [id number] [address] [place] [address], [place] [address] August, [facility] [address] [id number] [address] [place] [address], [place] [address] August, [facility] [address] [id number] [address] [place] [address], [place] [address] August, [facility] [address] [id number] [address] [place] [address], [place] [address] August, [facility] [address] [id number] [address] [place] [address], [place] [address] August, [facility] [address] [id number] [address] [place] [address], [place] [address] August, [facility] [address] [id number] [address] [place] [address], [place] [address] Jul, [facility] [address] [id number] [address] [place] [address], [place] [address] Jul, [facility] [address] [id number] [address] [place] [address], [place] [address] Jul, [facility] [address] [id number] [address] [place] [address], [place] [address] Jul, [facility] [address] [id number] [address] [place] [address], [place] [address] Jul, [facility] [address] [id number] [address] [place] [address], [place] [address] Jul, [facility] [address] [id number] [address] [place] [address], [place] [address] Jul, [facility] [address] [id number] [address] [place] [address], [place] [address] Jul, [facility] [address] [id number] [address] [place] [address], [place] [address] Jun, [facility] [address] [id number] [address] [place] [address], [place] [address] Jun, [facility] [address] [id number] [address] [place] [address], [place] [address] Jun, [facility] [address] [id number] [facility] [place] [address] Jun, [facility] [address] [id number] [address] [place] [address], [place] [address] Jun, [facility] [address] [id number] [address] [place] [address], [place] [address] Jun, [facility] [address] [id number] [address] [place] [address], [place] [address] May, [facility] [address] [id number] [address] [place] [address], [place] [address] May, [facility] [address] [id number] [address] [place] [address], [place] [address] May, [facility] [address] [id number] [address] [place] [address], [place] [address] May, [facility] [address] [id number] [address] [place] [address], [place] [address] May, [facility] [address] [id number] [address] [place] [address], [place] [address] May, [facility] [address] [id number] [address] [place] [address], [place] [address] May, [facility] [address] [id number] [address] [place] [address], [place] [address] Apr, [facility] [address] [id number] [address] [place] [address], [place] [address] Apr, [facility] [address] [id number] [address] [place] [address], [place] [address] Apr, [facility] [address] [id number] [address] [place] [address], [place] [address] Apr, [facility] [address] [id number] [address] [place] [address], [place] [address] Apr, [facility] [address] [id number] [address] [place] [address], [place] [address] 10 Apr, 2013 [facility] [address] [id number] [address] [place] [address], [place] [address] 31 Mar, 2013 [facility] [address] [id number] [address] [place] [address], [place] [address] Mar, [facility] [address] [id number] [address] [place] [address], [place] [address] Mar, [facility] [address] [id number] [address] [place] [address], [place] [address] Mar, [facility] [address] [id number] [address] [place] [address], [place] [address] Mar, [facility] [address] [id number] [address] [place] [address], [place] [address] Mar, [facility] [address] [id number] [address] [place] [address], [place] [address] 16 Mar, 2013 [facility] [address] [id number] [address] [place] [address], [place] [address] 16 Mar, 2013 [facility] [address] [id number] [address] [place] [address], [place] [address] Mar, [facility] [address] [id number] [address] [place] [address], [place] [address] Mar, [facility] [address] [id number] [address] [place] [address], [place] [address] Feb, [facility] [address] [id number] [address] [place] [address], [place] [address] Feb, [facility] [address] [id number] [address] [place] [address], [place] [address] Feb, [facility] [address] [id number] [address] [place] [address], [place] [address] 25 Feb, 2013 [facility] [address] [id number] [address] [place] [address], [place] [address] 14 Feb, 2013 [facility] [address] [id number] [address] [place] [address], [place] [address] 14 Feb, 2013 [facility] [address] [id number] [address] [place] [address], [place] [address] Feb, [facility] [address] [id number] [address] [place] [address], [place] [address] Feb, [facility] [address] [id number] [address] [place] [address], [place] [address] Feb, [facility] [address] [id number] [address] [place] [address], [place] [address] Feb, [facility] [address] [id number] [address] [place] [address], [place] [address] Jan, [facility] [address] [id number] [address] [place] [address], [place] [address] Jan, [facility] [address] [id number] [address] [place] [address], [place] [address] Jan, [facility] [address] [id number] [address] [place] [address], [place] [address] Jan, [facility] [address] [id number] [address] [place] [address], [place] [address] Jan, [facility] [address] [id number] [address] [place] [address], [place] [address] Jan, [facility] [address] [id number] [address] [place] [address], [place] [address] Jan, [facility] [address] [id number] [address] [place] [address], [place] [address] Jan, [facility] [address] [id number] [address] [place] [address], [place] [address] Jan, [facility] [address] [id number] [address] [place] [address], [place] [address] 25 Dec, 2012 [facility] [address] [id number] [address] [place] [address], [place] [address] Dec, [facility] [address] [id number] [address] [place] [address], [place] [address] Dec, [facility] [address] [id number] [address] [place] [address], [place] [address] Dec, [facility] [address] [id number] [address] [place] [address], [place] [address] Nov, [facility] [address] [id number] [address] [place] [address], [place] [address] Nov, [facility] [address] [id number] [address] [place] [address], [place] [address] Nov, [facility] [address] [id number] [address] [place] [address], [place] [address] Nov, [facility] [address] [id number] [address] [place] [address], [place] [address] Nov, [facility] [address] [id number] [address] [place] [address], [place] [address] Nov, [facility] [address] [id number] [address] [place] [address], [place] [address] Oct, [facility] [address] [id number] [address] [place] [address], [place] [address] Oct, [facility] [address] [id number] [address] [place] [address], [place] [address] Oct, [facility] [address] [id number] [address] [place] [address], [place] [address] Oct, [facility] [address] [id number] [address] [place] [address], [place] [address] Sep, [facility] [address] [id number] [address] [place] [address], [place] [address] Sep, [facility] [address] [id number] [address] [place] [address], [place] [address] Sep, [facility] [address] [id number] [address] [place] [address], [place] [address] 14 Sep, 2012 [facility] [address] [id number] [address] [place] [address], [place] [address] 10 Sep, 2012 [facility] [address] [id number] [address] [place] [address], [place] [address] 17 Aug, 2012 [facility] [address] [id number] [address] [place] [address], [place] [address] 2012 [facility] [address] [id number] [address] [place] [address], [place] [address] 19 Jul, 2012 [facility] [address] [id number] [address] [place] [address], [place] [address] 19 Jul, 2012 [facility] [address] [id number] [address] [place] [address], [place] [address] 15 Jul, 2012 [facility] [address] [id number] [address] [place] [address], [place] [address] 09 Jul, 2012 [facility] [address] [id number] [address] [place] [address], [place] [address] 08 Jul, 2012 [facility] [address] [id number] [address] [place] [address], [place] [address] 26 Jun, 2012 [facility] [address] [id number] [address] [place] [address], [place] [address] 20 Jun, 2012 [facility] [address] [id number] [address] [place] [address], [place] [address] 15 Jun, 2012 [facility] [address] [id number] [address] [place] [address], [place] [address] 06 Jun, 2012 [facility] [address] [id number] [address] [place] [address], [place] [address] Jun, [facility] [address] [id number] [address] [place] [address], [place] [address] 28 May, 2012 [facility] [address] [id number] [address] [place] [address], [place] [address] May, [facility] [address] [id number] [address] [place] [address], [place] [address] May, [facility] [address] [id number] [address] [place] [address], [place] [address] May, [facility] [address] [id number] [address] [place] [address], [place] [address] May, [facility] [address] [id number] [address] [place] [address], [place] [address] May, [facility] [address] [id number] [address] [place] [address], [place] [address] May, [facility] [address] [id number] [address] [place] [address], [place] [address] May, [facility] [address] [id number] [address] [place] [address], [place] [address] May, [facility] [address] [id number] [address] [place] [address], [place] [address] Apr, [facility] [address] [id number] [address] [place] [address], [place] [address] Apr, [facility] [address] [id number] [address] [place] [address], [place] [address] Apr, [facility] [address] [id number] [address] [place] [address], [place] [address] Apr, [facility] [address] [id number] [address] [place] [address], [place] [address] Apr, [facility] [address] [id number] [address] [place] [address], [place] [address] Mar, [facility] [address] [id number] [address] [place] [address], [place] [address] Mar, [facility] [address] [id number] [address] [place] [address], [place] [address] Mar, [facility] [address] [id number] [address] [place] [address], [place] [address] 20 Mar, 2012 [facility] [address] [id number] [address] [place] [address], [place] [address] Mar, [facility] [address] [id number] [address] [place] [address], [place] [address] 19 Mar, 2012 [facility] [address] [id number] [address] [place] [address], [place] [address] 17 Mar, 2012 [facility] [address] [id number] [address] [place] [address], [place] [address] 17 Mar, 2012 [facility] [address] [id number] [address] [place] [address], [place] [address] Mar, [facility] [address] [id number] [address] [place] [address], [place] [address] Mar, [facility] [address] [id number] [address] [place] [address], [place] [address] 30 Feb, 2012 [facility] [address] [id number] [address] [place] [address], [place] [address] 30 Feb, 2012 [facility] [address] [id number] [address] [place] [address], [place] [address] 29 Feb, 2012 [facility] [address] [id number] [address] [place] [address], [place] [address] 29 Feb, 2012 [facility] [address] [id number] [address] [place] [address], [place] [address] Feb, [facility] [address] [id number] [address] [place] [address], [place] [address] Feb, [facility] [address] [id number] [address] [place] [address], [place] [address] Feb, [facility] [address] [id number] [address] [place] [address], [place] [address] 20 Feb, 2012 [facility] [address] [id number] [address] [place] [address], [place] [address] 16 Feb, 2012 [facility] [address] [id number] [address] [place] [address], [place] [address] 16 Feb, 2012 [facility] [address] [id number] [address] [place] [address], [place] [address] 13 Feb, 2012 [facility] [address] [id number] [address] [place] [address], [place] [address] 13 Feb, 2012 [facility] [address] [id number] [address] [place] [address], [place] [address] Feb, [facility] [address] [id number] [address] [place] [address], [place] [address] Feb, [facility] [address] [id number] [address] [place] [address], [place] [address] Feb, [facility] [address] [id number] [address] [place] [address], [place] [address] Feb, [facility] [address] [id number] [address] [place] [address] Feb, [facility] [address] [id number] [address] [place] [address], [place] [address] Feb, [facility] [address] [id number] [address] [place] [address] Jan, [facility] [address] [id number] [address] [place] [address] Jan, [facility] [address] [id number] [address] [place] [address] 31 Jan, 2012 [facility] [address] [id number] [address] [place] [address] 31 Jan, 2012 [facility] [address] [id number] [address] [place] [address] Jan, [facility] [address] [id number] [address] [place] [address] 24 Jan, 2012 [facility] [address] [id number] [address] [place] [address] Jan, [facility] [address] [id number] [address] [place] [address], [place] [address] Jan, [facility] [address] [id number] [address] [place] [address], [place] [address] Jan, [facility] [address] [id number] [address] [place] [address], [place] [address] Jan, [facility] [address] [id number] [address] [place] [address], [place] [address] 24 Dec, 2011 [facility] [address] [id number] [address] [place] [address], [place] [address] Dec, [facility] [address] [id number] [address] [place] [address], [place] [address] Dec, [facility] [address] [id number] [address] [place] [address], [place] [address] Dec, [facility] [address] [id number] [address] [place] [address], [place] [address] Nov, [facility] [address] [id number] [address] [place] [address], [place] [address] Nov, [facility] [address] [id number] [address] [place] [address], [place] [address] Nov, [facility] [address] [id number] [address] [place] [address], [place] [address] Nov, [facility] [address] [id number] [address] [place] [address], [place] [address] Nov, [facility] [address] [id number] [address] [place] [address], [place] [address] Nov, [facility] [address] [id number] [address] [place] [address], [place] [address] Oct, [facility] [address] [id number] [address] [place] [address], [place] [address] Oct, [facility] [address] [id number] [address] [place] [address], [place] [address] 06 Oct, 2011 [facility] [address] [id number] [address] [place] [address], [place] [address] Oct, [facility] [address] [id number] [address] [place] [address], [place] [address] Oct, [facility] [address] [id number] [address] [place] [address], [place] [address] Sep, [facility] [address] [id number] [address] [place] [address], [place] [address] Sep, [facility] [address] [id number] [address] [place] [address], [place] [address] Sep, [facility] [address] [id number] [address] [place] [address], [place] [address] Sep, [facility] [address] [id number] [address] [place] [address], [place] [address] Sep, [facility] [address] [id number] [address] [place] [address], [place] [address] August, [facility] [address] [id number] [address] [place] [address], [place] [address] August, [facility] [address] [id number] [address] [place] [address], [place] [address] August, [facility] [address] [id number] [address] [place] [address], [place] [address] August, [facility] [address] [id number] [address] [place] [address], [place] [address] Jul, [facility] [address] [id number] [address] [place] [address], [place] [address] Jul, [facility] [address] [id number] [address] [place] [address], [place] [address] Jul, [facility] [address] [id number] [address] [place] [address], [place] [address] Jul, [facility] [address] [id number] [facility] [place] [address] 18 Jul, 2011 [facility] [address] [id number] [address] [place] [address], [place] [address] Jul, [facility] [address] [id number] [address] [place] [address], [place] [address] Jul, [facility] [address] [id number] [address] [place] [address], [place] [address] 10 Jul, 2011 [facility] [address] [id number] [address] [place] [address], [place] [address] Jul, [facility] [address] [id number] [address] [place] [address], [place] [address] Jul, [facility] [address] [id number] [address] [place] [address], [place] [address] 05 Jul, 2011 [facility] [address] [id number] [address] [place] [address], [place] [address] Jul, [facility] [address] [id number] [address] [place] [address], [place] [address] Jul, [facility] [address] [id number] [address] [place] [address], [place] [address] Jul, [facility] [address] [id number] [address] [place] [address], [place] [address] 28 Jun, 2011 [facility] [address] [id number] [address] [place] [address], [place] [address] 27 Jun, 2011 [facility] [address] [id number] [address] [place] [address], [place] [address] 20 Jun, 2011 [facility] [address] [id number] [address] [place] [address], [place] [address] 16 Jun, 2011 [facility] [address] [id number] [address] [place] [address], [place] [address] May, [facility] [address] [id number] [address] [place] [address], [place] [address] 16 May, 2011 [facility] [address] [id number] [address] [place] [address], [place] [address] 09 May, 2011 [facility] [address] [id number] [address] [place] [address], [place] [address] Apr, [facility] [address] [id number] [address] [place] [address], [place] [address] 18 Apr, 2011 [facility] [address] [id number] [address] [place] [address], [place] [address] 13 Apr, 2011 [facility] [address] [id number] [address] [place] [address], [place] [address] Apr, [facility] [address] [id number] [address] [place] [address], [place] [address] Apr, [facility] [address] [id number] [address] [place] [address], [place] [address] Mar, [facility] [address] [id number] [address] [place] [address], [place] [address] Mar, [facility] [address] [id number] [address] [place] [address], [place] [address] Mar, [facility] [address] [id number] [address] [place] [address], [place] [address] Mar, [facility] [address] [id number] [address] [place] [address], [place] [address] Mar, [facility] [address] [id number] [address] [place] [address], [place] [address] Mar, [facility] [address] [id number] [address] [place] [address], [place] [address] 05 Mar, 2011 [facility] [address] [id number] [address] [place] [address], [place] [address] Feb, [facility] [address] [id number] [address] [place] [address], [place] [address] Feb, [facility] [address] [id number] [address] [place] [address], [place] [address] Feb, [facility] [address] [id number] [address] [place] [address], [place] [address] 22 Feb, 2011 [facility] [address] [id number] [address] [place] [address], [place] [address] 16 Feb, 2011 [facility] [address] [id number] [address] [place] [address], [place] [address] 14 Feb, 2011 [facility] [address] [id number] [address] [place] [address], [place] [address] 10 Feb, 2011 [facility] [address] [id number] [address] [place] [address], [place] [address] 31 Jan, 2011 [facility] [address] [id number] [address] [place] [address], [place] [address] 31 Jan, 2011 [facility] [address] [id number] [address] [place] [address], [place] [address] 31 Jan, 2011 [facility] [address] [id number] [address] [place] [address], [place] [address] 18 Jan, 2011 [facility] [address] [id number] [address] [place] [address], [place] [address] 17 Jan, 2011 [facility] [address] [id number] [address] [place] [address], [place] [address] 17 Jan, 2011 [facility] [address] [id number] [address] [place] [address] Jun, [facility] [address] [id number] [address] [place] [address], [place] [address] 30 Mar, 2010 [facility] [address] [id number] [address] [place] [address], [place] [address] Mar, [facility] [address] [id number] [address] [place] [address], [place] [address] 14 Mar, 2010 [facility] [address] [id number] [address] [place] [address] 14 Mar, 2010 [facility] [address] [id number] [address] [place] [address], [place] [address] 13 Mar, 2010 [facility] [address] [id number] [address] [place] [address] 07 Mar, 2010 [facility] [address] [id number] [address] [place] [address], [place] [address] 02 Mar, 2010 [facility] [address] [id number] [address] [place] [address] Mar, [facility] [address] [id number] [address] [place] [address], [place] [address] 30 Feb, 2010 [facility] [address] [id number] [address] [place] [address] 29 Feb, 2010 [facility] [address] [id number] [address] [place] [address] 17 Feb, 2010 [facility] [address] [id number] [address] [place] [address] 17 Feb, 2010 [facility] [address] [id number] [address] [place] [address] 16 Feb, 2010 [facility] [address] [id number] [address] [place] [address] 08 Feb, 2010 [facility] [address] [id number] [address] [place] [address] 04 Feb, 2010 [facility] [address] [id number] [address] [place] [address] Feb, [facility] [address] [id number] [address] [place] [address] Jan, [facility] [address] [id number] [address] [place] [address] Jan, [facility] [address] [id number] [address] [place] [address] Jan, [facility] [address] [id number] [address] [place] [address] Jan, [facility] [address] [id number] [address] [place] [address] Mar, [facility] [address] [id number] [address] [place] [address] Mar, [facility] [address] [id number] [address] [place] [address] Mar, [facility] [address] [id number] [address] [place] [address] Mar, [facility] [address] [id number] [address] [place] [address] Mar, [facility] [address] [id number] [address] [place] [address] Mar, [facility] [address] [id number] [address] [place] [address] Feb, [facility] [address] [id number] [address] [place] [address] Feb, [facility] [address] [id number] [address] [place] [address] Jan, [facility] [address] [id number] [address] [place] [address] Sep, [facility] [address] [id number] [address] [place] [address] May, IMMUNIZATIONS No Known Immunizations SOCIAL HISTORY [...] Hospitalization History [facility] in [place]- Spontane ous Pneumothorax Hospitalization History [facility]- Colon resection Hospitalization History [facility] - diarrhea/ couldnt urin ate nov 2017 Hospitalization History pain /hip to foot right side 10/16/19 19
--- OUTSIDE RECORDS SUMMARY | 2019-08-28 09:19 | XMS REPORT ---
Author Author Dixon Lundberg Doctor Organization [facility] Address Unknown Phone Unavailable Care Team Providers Care Tooling Mechanic Name Role Phone Migration, Doctor Unavailable Unavailable PROBLEMS Type Condition ICD9-CM Code LCR99-HT Code Onset Dates Condition S tatus SNOMED Code Problem HTN (hypertension) I10 Active 3 8025062 Problem Insomnia G47.00 Active 366745389 Problem Chronic pain G89.29 Active 8013288 1 Problem Hyperlipidemia E78.5 Active 72480 004 Problem Thoracic back pain, unspecif ied back pain laterality, unspecified chronicity M54.6 Active 760915345 Problem Vision loss H54.7 Active 48692614 1 Problem Constipation K59.00 Active 0249154 8 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 75235458 Problem Anxiety F41.9 Active 00369467 Problem Vitamin D deficiency E55.9 Active 84351251 Problem Environmental allergies Z91.09 Active 958824406 Problem Primary insomnia F51.01 Active 397 2004 Problem Chronic kidney disease, stage III (moderate) N18.3 Active 232945182 ALLERGIES No Information ENCOUNTERS Encounter Location Date Diagnosis [facility] [address] [facility] [id number] [address] [place] [phone] Oct, [facility] [address] [facility] [id number] [address] [place] [phone] Oct, [facility] [address] [facility] [id number] [address] [place] [phone] Oct, [facility] [address] [facility] [id number] [address] [place] [phone] Sep, Anxiety F41.9 [facility] [address] [facility] [id number] [address] [place] [id number] Sep, [facility] [address] [facility] [id number] [address] [place] [phone] Sep, Thoracic back pain, unspecif ied back pain laterality, unspecified chronicity M54.6 [facility] [address] [id number] [address] [place] [id number] Sep, [facility] [address] [id number] [address] [place] [phone] Sep, [facility] [address] [facility] [id number] [address] [place] [phone] Sep, [facility] [address] [facility] [id number] [address] [place] [id number] Sep, [facility] [address] [id number] [address] [place] [phone] Sep, [facility] [address] [facility] [id number] [address] [place] [phone] Sep, [facility] [address] [facility] [id number] [address] [place] [phone] Sep, Chronic pain G89.29 ; Chroni c kidney disease, stage III (moderate) N18.3 ; Hyperlipidemia E78.5 and Insomnia G47.00 [facility] [address] [facility] [id number] [address] [place] [id number] Sep, Thoracic back pain, unspecif ied back pain laterality, unspecified chronicity M54.6 [facility] [address] [place] [id number] [address] [place] [phone] August, Anxiety F41.9 [facility] [address] [facility] [id number] [address] [place] [id number] August, Thoracic back pain, unspecif ied back pain laterality, unspecified chronicity M54.6 and Anxiety F41.9 [facility] [address] [facility] [id number] [address] [place] [id number] August, 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 [facility] [address] [place] [id number] [address] [place] [phone] August, 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 [facility] [address] [id number] [address] [place] [phone] August, [facility] [address] [id number] [address] [place] [phone] August, [facility] [address] [id number] [address] [place] [id number] August, Thoracic back pain, unspecif ied back pain laterality, unspecified chronicity M54.6 [facility] [address] [id number] [address] [place] [phone] August, [facility] [address] [id number] [address] [place] [phone] August, Anxiety F41.9 and Thoracic b ack pain, unspecified back pain laterality, unspecified chronicity M54.6 [facility] [address] [id number] [address] [place] [phone] Jul, [facility] [address] [id number] [address] [place] [phone] Jul, Thoracic back pain, unspecif ied back pain laterality, unspecified chronicity M54.6 [facility] [address] [id number] [address] [place] [id number] Jun, Anxiety F41.9 and Thoracic b ack pain, unspecified back pain laterality, unspecified chronicity M54.6 [facility] [address] [id number] [address] [place] [phone] Jun, Anxiety F41.9 and Thoracic b ack pain, unspecified back pain laterality, unspecified chronicity M54.6 [facility] [address] [id number] [address] [place] [phone] Jun, Thoracic back pain, unspecif ied back pain laterality, unspecified chronicity M54.6 [facility] [address] [id number] [address] [place] [phone] Jun, Anxiety F41.9 and Thoracic b ack pain, unspecified back pain laterality, unspecified chronicity M54.6 [facility] [address] [id number] [address] [place] [phone] May, [facility] [address] [id number] [address] [place] [phone] May, [facility] [address] [facility] [id number] [address] [place] [phone] May, [facility] [address] [facility] [id number] [address] [place] [phone] May, Anxiety F41.9 and Encounter for medication monitoring Z51.81 [facility] [address] [facility] [id number] [address] [place] [phone] May, Anxiety F41.9 and Thoracic b ack pain, unspecified back pain laterality, unspecified chronicity M54.6 [place] [id number] [facility] [id number] [address] [place] [phone] Apr, Hyperlipidemia 272.4 [facility] [address] [facility] [id number] [address] [place] [phone] Apr, Chronic pain G89.29 ; Anxiet y F41.9 ; Cervical radiculopathy M54.12 and Vision loss H54.7 [place] [address] [facility] [id number] [address] [place] [phone] Apr, [facility] [address] [facility] [id number] [address] [place] [phone] Apr, Anxiety F41.9 and Thoracic b ack pain, unspecified back pain laterality, unspecified chronicity M54.6 [facility] [address] [facility] [id number] [address] [place] [phone] Mar, [facility] [address] [facility] [id number] [address] [place] [phone] Mar, Anxiety F41.9 and Thoracic b ack pain, unspecified back pain laterality, unspecified chronicity M54.6 [place] [address] [id number] [address] [place] [id number] 14 Feb, 2018 Anxiety F41.9 and Thoracic b ack pain, unspecified back pain laterality, unspecified chronicity M54.6 [facility] [address] [id number] [address] [place] [phone] 07 Feb, 2018 Thoracic back pain, unspecif ied back pain laterality, unspecified chronicity M54.6 [facility] [address] [id number] [address] [place] [phone] 29 Jan, 2018 [facility] [address] [id number] [address] [place] [phone] 16 Jan, 2018 Anxiety F41.9 and Thoracic b ack pain, unspecified back pain laterality, unspecified chronicity M54.6 [facility] [address] [id number] [address] [place] [id number] 19 Dec, 2017 Diarrhea of presumed infecti ous origin R19.7 [facility] [address] [id number] [address] [place] [phone] 19 Dec, 2017 Diarrhea of presumed infecti ous origin R19.7 [facility] [address] [id number] [address] [place] [phone] 18 Dec, 2017 Thoracic back pain, unspecif ied back pain laterality, unspecified chronicity M54.6 [facility] [address] [id number] [address] [place] [phone] 17 Dec, 2017 [facility] [address] [id number] [address] [place] [phone] 17 Dec, 2017 Anxiety F41.9 and Thoracic b ack pain, unspecified back pain laterality, unspecified chronicity M54.6 [facility] [address] [id number] [address] [place] [id number] 13 Dec, 2017 Diarrhea of presumed infecti ous origin R19.7 [facility] [address] [id number] [address] [place] [phone] 13 Dec, 2017 [place] [address] [facility] [id number] [address] [place] [phone] Dec, Anxiety F41.9 and Thoracic b ack pain, unspecified back pain laterality, unspecified chronicity M54.6 [place] [address] [place] [id number] [address] [place] [phone] Dec, Anxiety F41.9 and Thoracic b ack pain, unspecified back pain laterality, unspecified chronicity M54.6 [facility] [address] [place] [id number] Dec, Diarrhea of presumed infectious origin R 19.7 ; Anxiety F41.9 ; Thoracic back pain, unspecified back pain laterality, unspecified chronicity M54.6 and HTN (hypertension) I10 [place] [id number] [place] [id number] Dec, Anxiety F41.9 [facility] [employer] [address] [place] [id number] Dec, Anxiety F41.9 ; Diarrhea of presumed inf ectious origin R19.7 ; Generalized abdominal pain R10.84 and Localized edema R60.0 [place] [id number] [address] [place] [phone] Nov, [facility] [employer] [address] [place] [id number] Nov, Anxiety F41.9 ; Urinary retention R33.9 ; Diarrhea of presumed infectious origin R19.7 ; Weakness R53.1 ; Acute kidney failure, unspecified N17.9 ; Chronic kidney disease, stage III (moderate) N18.3 and Thoracic back pain, unspecified back pain laterality, unspecified chronicity M54.6 [place] [address] [place] [id number] [address] [place] [id number] Oct, Thoracic back pain, unspecif ied back pain laterality, unspecified chronicity M54.6 and Anxiety F41.9 [place] [id number] [address] [place] [phone] Sep, Thoracic back pain, unspecif ied back pain laterality, unspecified chronicity M54.6 and Anxiety F41.9 [facility] [address] [facility] [id number] [address] [place] [id number] Sep, Thoracic back pain, unspecif ied back pain laterality, unspecified chronicity M54.6 ; Anxiety F41.9 and Encounter for medication monitoring Z51.81 [place] [address] [facility] [id number] [address] [place] [id number] August, [facility] [address] [facility] [id number] [address] [place] [id number] August, Thoracic back pain, unspecif ied back pain laterality, unspecified chronicity M54.6 and Anxiety F41.9 [place] [address] [place] [id number] [address] [place] [id number] August, Hyperlipidemia E78.5 and HTN (hypertension) I10 [place] [address] [place] [id number] [address] [place] [phone] August, [place] [address] [place] [id number] [address] [place] [id number] August, Medicare welcome exam Z00.00 ; Chronic kidney failure N18.9 ; Anxiety F41.9 ; Chronic pain G89.29 ; Insomnia G47.00 ; Hyperlipidemia E78.5 ; HTN (hypertension) I10 and Thoracic back pain, unspecified back pain laterality, unspecified chronicity M54.6 [place] [id number] [facility] [id number] [address] [place] [phone] Jul, [place] [address] [facility] [id number] [address] [place] [phone] Jul, [place] [address] [place] [id number] [address] [place] [id number] Jul, [place] [address] [place] [id number] [address] [place] [id number] Jul, Anxiety F41.9 [place] [address] [place] [id number] [address] [place] [phone] 05 Jul, 2017 Thoracic back pain, unspecif ied back pain laterality, unspecified chronicity M54.6 and Anxiety F41.9 [place] [address] [facility] [id number] [address] [place] [id number] Jun, Thoracic back pain, unspecif ied back pain laterality, unspecified chronicity M54.6 and Anxiety F41.9 [place] [address] [facility] [id number] [address] [place] [id number] 12 May, 2017 Thoracic back pain, unspecif ied back pain laterality, unspecified chronicity M54.6 and Anxiety F41.9 [place] [address] [facility] [id number] [address] [place] [phone] Apr, Thoracic back pain, unspecif ied back pain laterality, unspecified chronicity M54.6 and Anxiety F41.9 [place] [address] [place] [id number] [address] [place] [phone] Mar, [place] [address] [place] [id number] [address] [place] [id number] 14 Mar, 2017 Thoracic back pain, unspecif ied back pain laterality, unspecified chronicity M54.6 and Anxiety F41.9 [place] [address] [place] [id number] [address] [place] [id number] 14 Mar, 2017 Thoracic back pain, unspecif ied back pain laterality, unspecified chronicity M54.6 ; HTN (hypertension) I10 ; Hyperlipidemia E78.5 and Anxiety F41.9 [place] [address] [facility] [id number] [address] [place] [id number] Feb, Thoracic back pain, unspecif ied back pain laterality, unspecified chronicity M54.6 and Anxiety F41.9 [place] [address] [id number] [address] [place] [phone] Nov, [place] [address] [place] [id number] [address] [place] [id number] Oct, [facility] [address] [facility] [id number] [address] [place] [phone] Oct, Thoracic back pain, unspecif ied back pain laterality, unspecified chronicity M54.6 [facility] [address] [facility] [id number] [address] [place] [id number] Oct, HTN (hypertension) I10 ; Con stipation K59.00 ; Hyperlipidemia E78.5 ; Thoracic back pain, unspecified back pain laterality, unspecified chronicity M54.6 ; Chronic pain G89.29 ; Anxiety F41.9 ; Chronic kidney failure N18.9 ; Environmental allergies Z91.09 ; Vitamin D deficiency E55.9 and Primary insomnia F51.01 [facility] [address] [place] [id number] [address] [place] [id number] Sep, Anxiety F41.9 [facility] [address] [place] [id number] [address] [place] [id number] Sep, [facility] [address] [facility] [id number] [address] [place] [phone] August, Anxiety F41.9 [facility] [address] [place] [id number] [address] [place] [id number] August, [facility] [address] [place] [id number] [address] [place] [id number] Jul, Anxiety F41.9 [facility] [address] [facility] [id number] [address] [place] [phone] Jul, [facility] [address] [facility] [id number] [address] [place] [id number] Jun, Anxiety F41.9 [facility] [address] [facility] [id number] [address] [place] [phone] Jun, [facility] [address] [place] [id number] [address] [place] [phone] May, [facility] [address] [place] [id number] [address] [place] [id number] May, [facility] [address] [facility] [id number] [address] [place] [id number] May, [facility] [address] [facility] [id number] [address] [place] [phone] Apr, [facility] [address] [facility] [id number] [address] [place] [id number] Apr, [facility] [address] [place] [id number] [place] [phone] Apr, Anxiety F41.9 [facility] [address] [phone] Apr, Anxiety F41.9 [facility] [address] [place] [id number] [address] [place] [id number] Apr, [facility] [address] [place] [id number] [address] [place] [phone] Mar, HTN (hypertension) I10 ; Phillip mor R25.1 ; Hypercholesterolemia E78.0 ; Constipation K59.00 ; Chronic pain G89.29 ; Hyperlipidemia E78.5 ; Insomnia G47.00 ; Anxiety F41.9 and Thoracic back pain, unspecified back pain laterality, unspecified chronicity M54.6 [facility] [address] [place] [id number] [address] [place] [id number] Mar, Tremor R25.1 ; HTN (hyperten stas) I10 ; Hypercholesterolemia E78.0 ; Constipation K59.00 ; Chronic pain G89.29 ; Hyperlipidemia E78.5 ; Insomnia G47.00 ; Anxiety F41.9 and Thoracic back pain, unspecified back pain laterality, unspecified chronicity M54.6 [facility] [address] [place] [id number] [address] [place] [id number] Mar, [facility] [address] [place] [id number] [address] [place] [id number] Mar, [facility] [address] [place] [id number] [address] [place] [phone] Feb, [facility] [address] [id number] [address] [place] [id number] Jan, [facility] [address] [id number] [address] [place] [phone] Jan, [facility] [address] [id number] [address] [place] [phone] Dec, [facility] [address] [id number] [address] [place] [phone] Nov, [facility] [address] [id number] [address] [place] [phone] Nov, [facility] [address] [id number] [address] [place] [phone] Oct, Anxiety F41.9 [facility] [address] [id number] [address] [place] [phone] Oct, Chronic pain G89.29 [facility] [address] [id number] [address] [place] [phone] Sep, [facility] [address] [id number] [address] [place] [phone] Sep, [facility] [address] [facility] [id number] [address] [place] [phone] Sep, [facility] [address] [id number] [address] [place] [phone] Sep, [facility] [address] [facility] [id number] [address] [place] [phone] 16 Sep, 2015 Chronic pain syndrome G89.4 [facility] [address] [id number] [address] [place] [phone] Sep, HTN (hypertension) I10 ; Chr onic pain G89.29 ; Hypercholesterolemia E78.0 ; Chronic kidney failure N18.9 ; Constipation, unspecified constipation type K59.00 ; Anxiety F41.9 and Thoracic back pain, unspecified back pain laterality, unspecified chronicity M54.6 [facility] [address] [id number] [address] [place] [phone] August, Chronic pain syndrome G89.4 [facility] [address] [id number] [address] [place] [phone] August, Chronic pain syndrome G89.4 [facility] [address] [id number] [address] [place] [phone] Jul, Anxiety disorder, unspecifie d F41.9 and Chronic pain syndrome G89.4 [facility] [address] [id number] [address] [place] [phone] Jul, Insomnia, unspecified G47.00 and Chronic pain syndrome G89.4 [facility] [address] [id number] [address] [place] [id number] Jul, Allergic rhinitis J30.9 [facility] [address] [id number] [address] [place] [id number] Jul, Constipation, unspecified K5 9.00 [facility] [address] [id number] [address] [place] [id number] Jul, [facility] [address] [id number] [address] [place] [phone] Jun, [facility] [address] [id number] [address] [place] [phone] Jun, [facility] [address] [id number] [address] [place] [phone] Jun, [facility] [address] [id number] [address] [place] [phone] Jun, [facility] [address] [id number] [address] [place] [phone] Jun, [facility] [address] [id number] [address] [place] [id number] Jun, [facility] [address] [facility] [id number] [address] [place] [phone] May, [facility] [address] [id number] [address] [place] [phone] May, [facility] [address] [id number] [address] [place] [phone] May, Anxiety F41.9 ; Insomnia G47 .00 ; Hyperlipidemia E78.5 ; Chronic pain G89.29 ; HTN (hypertension) I10 ; Environmental allergies V15.09 and Constipation 564.00 [facility] [address] [facility] [id number] [address] [place] [phone] Apr, [facility] [address] [id number] [address] [place] [phone] Apr, [facility] [id number] [place] [phone] Apr, [facility] [address] [id number] [address] [place] [phone] Mar, [facility] [address] [id number] [address] [place] [phone] Mar, [facility] [address] [id number] [address] [place] [phone] Mar, [facility] [address] [id number] [address] [place] [phone] Feb, [facility] [address] [id number] [address] [place] [id number] Feb, [facility] [address] [id number] [address] [place] [phone] Feb, [facility] [address] [id number] [address] [place] [phone] Jan, HTN (hypertension) I10 ; Con stipation K59.00 ; Chronic pain G89.29 ; Hyperlipidemia E78.5 ; Hypercholesterolemia E78.0 ; Insomnia G47.00 and Anxiety F41.9 [facility] [address] [id number] [address] [place] [phone] Jan, [facility] [address] [id number] [address] [place] [phone] Dec, [facility] [address] [id number] [address] [place] [phone] Nov, [facility] [address] [id number] [address] [place] [id number] Oct, Chronic kidney disease, unsp ecified 585.9 ; Chronic pain syndrome 338.4 ; Hyperlipidemia 272.4 and Essential hypertension 401.9 [facility] [address] [id number] [address] [place] [phone] Oct, Chronic kidney disease 585.9 [facility] [id number] [place] [id number] Oct, [facility] [address] [id number] [address] [place] [phone] Oct, Chronic kidney disease, unsp ecified 585.9 ; Hypercalcemia 275.42 ; Hyperlipidemia 272.4 ; Essential hypertension 401.9 ; Chronic pain syndrome 338.4 ; Insomnia 780.52 ; Constipation 564.00 ; Environmental allergies V15.09 and Anxiety 300.00 [facility] [id number] [place] [phone] Oct, Chronic kidney disease 585.9 [facility] [address] [id number] [address] [place] [phone] Oct, [facility] [address] [id number] [address] [place] [phone] 14 Oct, 2014 Chronic kidney disease 585.9 and Hyperlipidemia 272.4 [facility] [address] [id number] [address] [place] [phone] Oct, [facility] [address] [id number] [address] [place] [phone] Oct, [facility] [address] [id number] [address] [place] [address], [place] [id number] 18 Sep, 2014 [facility] [address] [id number] [address] [place] [address], [place] [id number] 15 Sep, 2014 [facility] [address] [id number] [address] [place] [address], [place] [id number] 15 Sep, 2014 Chronic kidney disease 585.9 and Hyperlipidemia 272.4 [facility] [address] [id number] [address] [place] [address], [place] [id number] Sep, [facility] [address] [id number] [address] [place] [address], [place] [address] August, [facility] [address] [id number] [address] [place] [address], [place] [id number] August, [facility] [address] [id number] [address] [place] [address], [place] [id number] Jul, [facility] [address] [id number] [address] [place] [address], [place] [id number] Jul, [facility] [address] [id number] [address] [place] [address], [place] [id number] Jun, [facility] [address] [id number] [address] [place] [address], [place] [id number] Jun, [facility] [address] [id number] [address] [place] [address], [place] [id number] 16 Jun, 2014 [facility] [address] [id number] [address] [place] [address], [place] [id number] 16 Jun, 2014 [facility] [address] [id number] [address] [place] [address], [place] [id number] Jun, [facility] [address] [id number] [address] [place] [address], [place] [id number] Jun, [facility] [address] [id number] [address] [place] [address], [place] [id number] Jun, [facility] [address] [id number] [address] [place] [address], [place] [address] Jun, [facility] [address] [id number] [address] [place] [address], [place] [address] May, [facility] [address] [id number] [address] [place] [address], [place] [address] May, [facility] [address] [id number] [address] [place] [address], [place] [address] May, [facility] [address] [id number] [address] [place] [address], [place] [address] May, [facility] [address] [id number] [address] [place] [address], [place] [address] Apr, [facility] [address] [id number] [address] [place] [address], [place] [address] Apr, [facility] [address] [id number] [address] [place] [address], [place] [address] Apr, [facility] [address] [id number] [address] [place] [address], [place] [address] Apr, [facility] [address] [id number] [address] [place] [address], [place] [address] Apr, [facility] [address] [id number] [address] [place] [address], [place] [address] Apr, [facility] [address] [id number] [address] [place] [address], [place] [address] Apr, [facility] [address] [id number] [address] [place] [address], [place] [address] Apr, [facility] [address] [id number] [address] [place] [address], [place] [address] Apr, [facility] [address] [id number] [address] [place] [address], [place] [id number] Apr, [facility] [address] [id number] [address] [place] [address], [place] [id number] Apr, [facility] [address] [id number] [address] [place] [address], [place] [address] Mar, [facility] [address] [id number] [address] [place] [address], [place] [address] Mar, [facility] [address] [id number] [address] [place] [address], [place] [address] Feb, [facility] [address] [id number] [address] [place] [address], [place] [address] Feb, [facility] [address] [id number] [address] [place] [address], [place] [address] Feb, [facility] [address] [id number] [address] [place] [address], [place] [address] Feb, [facility] [address] [id number] [address] [place] [address], [place] [id number] Feb, [facility] [address] [id number] [address] [place] [address], [place] [address] Feb, [facility] [address] [id number] [address] [place] [address], [place] [address] Feb, [facility] [address] [id number] [address] [place] [address], [place] [address] Feb, [facility] [address] [id number] [address] [place] [address], [place] [address] Feb, [facility] [address] [id number] [address] [place] [address], [place] [address] Feb, [facility] [address] [id number] [address] [place] [address], [place] [address] Jan, [facility] [address] [id number] [address] [place] [address], [place] [address] Jan, [facility] [address] [id number] [address] [place] [address], [place] [address] Jan, [facility] [address] [id number] [address] [place] [address], [place] [id number] 27 Jan, 2013 [facility] [address] [id number] [address] [place] [address], [place] [id number] 24 Jan, 2014 [facility] [address] [id number] [address] [place] [address], [place] [id number] 24 Jan, 2014 [facility] [address] [id number] [address] [place] [address], [place] [address] Jan, 2013 [facility] [address] [id number] [address] [place] [address], [place] [id number] 17 Jan, 2013 [facility] [address] [id number] [address] [place] [address], [place] [id number] 16 Jan, 2014 [facility] [address] [id number] [address] [place] [address], [place] [id number] 06 Jan, 2014 [facility] [address] [id number] [address] [place] [address], [place] [id number] 06 Jan, 2013 [facility] [address] [id number] [address] [place] [address], [place] [id number] 26 Sep, 2013 [facility] [address] [id number] [address] [place] [address], [place] [id number] 26 Sep, 2013 [facility] [address] [id number] [address] [place] [address], [place] [id number] 19 Sep, 2013 [facility] [address] [id number] [address] [place] [address], [place] [id number] 19 Sep, 2013 [facility] [address] [id number] [address] [place] [address], [place] [address] 18 Sep, 2013 [facility] [address] [id number] [address] [place] [address], [place] [id number] 18 Sep, 2013 [facility] [address] [id number] [address] [place] [address], [place] [address] 03 Sep, 2013 [facility] [address] [id number] [address] [place] [address], [place] [address] Dec, [facility] [address] [id number] [address] [place] [address], [place] [address] Nov, [facility] [address] [id number] [address] [place] [address], [place] [address] Nov, [facility] [address] [id number] [address] [place] [address], [place] [address] Nov, [facility] [address] [id number] [address] [place] [address], [place] [address] Nov, [facility] [address] [id number] [address] [place] [address], [place] [address] Nov, [facility] [address] [id number] [address] [place] [address], [place] [address] Nov, [facility] [address] [id number] [address] [place] [address], [place] [address] Nov, [facility] [address] [id number] [address] [place] [address], [place] [address] Nov, [facility] [address] [id number] [address] [place] [address], [place] [address] Oct, [facility] [address] [id number] [address] [place] [address], [place] [address] Oct, [facility] [address] [id number] [address] [place] [address], [place] [address] Oct, [facility] [address] [id number] [address] [place] [address], [place] [address] Oct, [facility] [address] [id number] [address] [place] [address], [place] [address] Sep, [facility] [address] [id number] [address] [place] [address], [place] [address] Sep, [facility] [address] [id number] [address] [place] [address], [place] [address] Sep, [facility] [address] [id number] [address] [place] [address], [place] [address] Sep, [facility] [address] [id number] [address] [place] [address], [place] [address] Sep, [facility] [address] [id number] [address] [place] [address], [place] [address] Sep, [facility] [address] [id number] [address] [place] [address], [place] [address] Sep, [facility] [address] [id number] [address] [place] [address], [place] [address] Sep, [facility] [address] [id number] [address] [place] [address], [place] [address] August, [facility] [address] [id number] [address] [place] [address], [place] [address] August, [facility] [address] [id number] [address] [place] [address], [place] [address] August, [facility] [address] [id number] [address] [place] [address], [place] [address] August, [facility] [address] [id number] [address] [place] [address], [place] [address] August, [facility] [address] [id number] [address] [place] [address], [place] [address] August, [facility] [address] [id number] [address] [place] [address], [place] [address] August, [facility] [address] [id number] [address] [place] [address], [place] [address] August, [facility] [address] [id number] [address] [place] [address], [place] [address] August, [facility] [address] [id number] [address] [place] [address], [place] [address] August, [facility] [address] [id number] [address] [place] [address], [place] [address] Jul, [facility] [address] [id number] [facility] [place] [address] Jul, [facility] [address] [id number] [facility] [place] [address] Jul, [facility] [address] [id number] [facility] [place] [address] Jul, [facility] [address] [id number] [address] [place] [address], [place] [address] Jul, [facility] [address] [id number] [address] [place] [address], [place] [address] Jul, [facility] [address] [id number] [address] [place] [address], [place] [address] Jul, [facility] [address] [id number] [address] [place] [address], [place] [address] Jul, [facility] [address] [id number] [address] [place] [address], [place] [address] Jun, [facility] [address] [id number] [address] [place] [address], [place] [address] Jun, [facility] [address] [id number] [address] [place] [address], [place] [address] Jun, [facility] [address] [id number] [address] [place] [address], [place] [address] Jun, [facility] [address] [id number] [address] [place] [address], [place] [address] Jun, [facility] [address] [id number] [address] [place] [address], [place] [address] Jun, [facility] [address] [id number] [address] [place] [address], [place] [address] May, [facility] [address] [id number] [address] [place] [address], [place] [address] May, [facility] [address] [id number] [address] [place] [address], [place] [address] May, [facility] [address] [id number] [address] [place] [address], [place] [address] May, [facility] [address] [id number] [address] [place] [address], [place] [address] May, [facility] [address] [id number] [address] [place] [address], [place] [address] May, [facility] [address] [id number] [address] [place] [address], [place] [address] May, [facility] [address] [id number] [address] [place] [address], [place] [address] Apr, [facility] [address] [id number] [address] [place] [address], [place] [address] Apr, [facility] [address] [id number] [address] [place] [address], [place] [address] Apr, [facility] [address] [id number] [address] [place] [address], [place] [address] Apr, [facility] [address] [id number] [address] [place] [address], [place] [address] Apr, [facility] [address] [id number] [address] [place] [address], [place] [address] Apr, [facility] [address] [id number] [address] [place] [address], [place] [address] Mar, [facility] [address] [id number] [address] [place] [address], [place] [address] Mar, [facility] [address] [id number] [address] [place] [address], [place] [address] Mar, [facility] [address] [id number] [address] [place] [address], [place] [address] Mar, [facility] [address] [id number] [address] [place] [address], [place] [address] Mar, [facility] [address] [id number] [address] [place] [address], [place] [id number] 19 Mar, 2013 [facility] [address] [id number] [address] [place] [address], [place] [address] 16 Mar, 2013 [facility] [address] [id number] [address] [place] [address], [place] [id number] 16 Mar, 2013 [facility] [address] [id number] [address] [place] [address], [place] [id number] Mar, [facility] [address] [id number] [address] [place] [address], [place] [id number] Mar, [facility] [address] [id number] [address] [place] [address], [place] [address] Feb, [facility] [address] [id number] [address] [place] [address], [place] [id number] Feb, [facility] [address] [id number] [address] [place] [address], [place] [id number] Feb, [facility] [address] [id number] [address] [place] [address], [place] [id number] Feb, [facility] [address] [id number] [address] [place] [address], [place] [id number] 14 Feb, 2013 [facility] [address] [id number] [address] [place] [address], [place] [id number] 14 Feb, 2013 [facility] [address] [id number] [address] [place] [address], [place] [id number] Feb, [facility] [address] [id number] [address] [place] [address], [place] [id number] Feb, [facility] [address] [id number] [address] [place] [address], [place] [id number] 08 Feb, 2013 [facility] [address] [id number] [address] [place] [address], [place] [id number] 08 Feb, 2013 [facility] [address] [id number] [address] [place] [address], [place] [id number] Jan, [facility] [address] [id number] [address] [place] [address], [place] [id number] Jan, [facility] [address] [id number] [address] [place] [address], [place] [id number] Jan, [facility] [address] [id number] [address] [place] [address], [place] [id number] Jan, [facility] [address] [id number] [address] [place] [address], [place] [address] Jan, [facility] [address] [id number] [address] [place] [address], [place] [id number] Jan, [facility] [address] [id number] [address] [place] [address], [place] [id number] Jan, [facility] [address] [id number] [address] [place] [address], [place] [id number] Jan, [facility] [address] [id number] [address] [place] [address], [place] [id number] Jan, [facility] [address] [id number] [address] [place] [address], [place] [id number] 25 Dec, 2012 [facility] [address] [id number] [address] [place] [address], [place] [id number] Dec, [facility] [address] [id number] [address] [place] [address], [place] [id number] Dec, [facility] [address] [id number] [address] [place] [id number] 13 Dec, 2012 [facility] [address] [id number] [address] [place] [address], [place] [id number] Nov, [facility] [address] [id number] [address] [place] [address], [place] [id number] Nov, [facility] [address] [id number] [address] [place] [address], [place] [address] Nov, [facility] [address] [id number] [address] [place] [address], [place] [id number] Nov, [facility] [address] [id number] [address] [place] [address], [place] [address] Nov, [facility] [address] [id number] [address] [place] [address], [place] [id number] Nov, [facility] [address] [id number] [address] [place] [address], [place] [id number] Oct, [facility] [address] [id number] [address] [place] [address], [place] [id number] Oct, [facility] [address] [id number] [address] [place] [address], [place] [id number] Oct, [facility] [facility] [address] [id number] [address] [place] [address], [place] [id number] Oct, [facility] [address] [id number] [address] [place] [address], [place] [address] Sep, [facility] [address] [id number] [address] [place] [address], [place] [address] Sep, [facility] [address] [id number] [address] [place] [address], [place] [address] Sep, [facility] [address] [id number] [address] [place] [address], [place] [address] Sep, [facility] [address] [id number] [address] [place] [address], [place] [address] Sep, [facility] [address] [id number] [address] [place] [address], [place] [address] August, [facility] [address] [id number] [address] [place] [address], [place] [address] August, [facility] [address] [id number] [address] [place] [address], [place] [address] Jul, [facility] [address] [id number] [address] [place] [address], [place] [address] Jul, [facility] [address] [id number] [address] [place] [address], [place] [address] Jul, [facility] [address] [id number] [address] [place] [address], [place] [address] Jul, [facility] [address] [id number] [address] [place] [address], [place] [address] Jul, [facility] [address] [id number] [address] [place] [address], [place] [id number] Jun, [facility] [address] [id number] [address] [place] [address], [place] [address] Jun, [facility] [address] [id number] [address] [place] [address], [place] [address] Jun, [facility] [address] [id number] [address] [place] [address], [place] [address] Jun, [facility] [address] [id number] [address] [place] [address], [place] [address] Jun, [facility] [address] [id number] [address] [place] [address], [place] [address] May, [facility] [address] [id number] [address] [place] [address], [place] [address] May, [facility] [address] [id number] [address] [place] [address], [place] [address] May, [facility] [address] [id number] [address] [place] [address], [place] [address] May, [facility] [address] [id number] [address] [place] [address], [place] [address] May, [facility] [address] [id number] [address] [place] [address], [place] [address] 14 May, 2012 [facility] [address] [id number] [address] [place] [address], [place] [id number] 13 May, 2012 [facility] [address] [id number] [address] [place] [address], [place] [id number] 08 May, 2012 [facility] [address] [id number] [address] [place] [address], [place] [address] May, [facility] [address] [id number] [address] [place] [address], [place] [address] Apr, [facility] [address] [id number] [address] [place] [address], [place] [address] Apr, [facility] [address] [id number] [address] [place] [address], [place] [address] Apr, [facility] [address] [id number] [address] [place] [address], [place] [address] Apr, [facility] [address] [id number] [address] [place] [address], [place] [address] Apr, [facility] [address] [id number] [address] [place] [address], [place] [id number] Mar, [facility] [address] [id number] [address] [place] [address], [place] [id number] Mar, [facility] [address] [id number] [address] [place] [address], [place] [id number] Mar, [facility] [address] [id number] [address] [place] [address], [place] [address] Mar, [facility] [address] [id number] [address] [place] [address], [place] [id number] Mar, [facility] [address] [id number] [address] [place] [address], [place] [address] Mar, [facility] [address] [id number] [address] [place] [address], [place] [address] Mar, [facility] [address] [id number] [address] [place] [address], [place] [id number] 17 Mar, 2012 [facility] [address] [id number] [address] [place] [address], [place] [address] Mar, [facility] [address] [id number] [address] [place] [address], [place] [address] Mar, [facility] [address] [id number] [address] [place] [address], [place] [address] Feb, [facility] [address] [id number] [address] [place] [address], [place] [address] Feb, [facility] [address] [id number] [address] [place] [address], [place] [address] Feb, [facility] [address] [id number] [address] [place] [address], [place] [id number] Feb, [facility] [address] [id number] [address] [place] [address], [place] [address] Feb, [facility] [address] [id number] [address] [place] [address], [place] [address] Feb, [facility] [address] [id number] [address] [place] [address], [place] [address] Feb, [facility] [address] [id number] [address] [place] [address], [place] [address] Feb, [facility] [address] [id number] [address] [place] [address], [place] [id number] 16 Feb, 2012 [facility] [address] [id number] [address] [place] [address], [place] [id number] 16 Feb, 2012 [facility] [address] [id number] [address] [place] [address], [place] [address] Feb, [facility] [address] [id number] [address] [place] [address], [place] [address] Feb, [facility] [address] [id number] [address] [place] [address], [place] [address] Feb, [facility] [address] [id number] [address] [place] [address], [place] [address] Feb, [facility] [address] [id number] [address] [place] [id number] Feb, [facility] [address] [id number] [address] [place] [address], [place] [id number] 08 Feb, 2012 [facility] [address] [id number] [address] [place] [id number] Feb, [facility] [address] [id number] [address] [place] [id number] Feb, [facility] [address] [id number] [address] [place] [id number] Jan, [facility] [address] [id number] [address] [place] [address], [place] [address] Jan, [facility] [address] [id number] [address] [place] [id number] Jan, [facility] [address] [id number] [address] [place] [id number] Jan, [facility] [address] [id number] [address] [place] [id number] Jan, [facility] [address] [id number] [address] [place] [id number] Jan, [facility] [address] [id number] [address] [place] [id number] Jan, [facility] [address] [id number] [address] [place] [id number] Jan, [facility] [address] [id number] [address] [place] [id number] Jan, [facility] [address] [id number] [address] [place] [id number] 04 Jan, 2012 [facility] [address] [id number] [address] [place] [id number] 24 Dec, 2011 [facility] [address] [id number] [address] [place] [id number] 18 Dec, 2011 [facility] [address] [id number] [address] [place] [address], [place] [id number] Dec, [facility] [address] [id number] [address] [place] [address], [place] [id number] Dec, [facility] [address] [id number] [address] [place] [address], [place] [address] Nov, [facility] [address] [id number] [address] [place] [address], [place] [id number] Nov, [facility] [address] [id number] [address] [place] [address], [place] [id number] Nov, [facility] [address] [id number] [address] [place] [address], [place] [id number] Nov, [facility] [address] [id number] [address] [place] [address], [place] [id number] Nov, [facility] [address] [id number] [address] [place] [address], [place] [address] Nov, [facility] [address] [id number] [address] [place] [address], [place] [address] Oct, [facility] [address] [id number] [address] [place] [address], [place] [address] Oct, [facility] [address] [id number] [address] [place] [address], [place] [id number] Oct, [facility] [address] [id number] [address] [place] [address], [place] [address] Oct, [facility] [address] [id number] [address] [place] [address], [place] [address] Oct, [facility] [address] [id number] [address] [place] [address], [place] [address] Sep, [facility] [address] [id number] [address] [place] [address], [place] [id number] Sep, [facility] [address] [id number] [address] [place] [address], [place] [id number] Sep, [facility] [address] [id number] [address] [place] [address], [place] [address] Sep, [facility] [address] [id number] [address] [place] [address], [place] [address] Sep, [facility] [address] [id number] [address] [place] [address], [place] [address] August, [facility] [address] [id number] [address] [place] [address], [place] [address] August, [facility] [address] [id number] [address] [place] [address], [place] [address] August, [facility] [address] [id number] [address] [place] [address], [place] [address] August, [facility] [address] [id number] [address] [place] [address], [place] [id number] Jul, [facility] [address] [id number] [address] [place] [address], [place] [id number] Jul, [facility] [address] [id number] [address] [place] [address], [place] [address] Jul, [facility] [address] [id number] [address] [place] [address], [place] [address] Jul, [facility] [address] [id number] [address] [place] [address], [place] [id number] Jul, [facility] [address] [id number] [address] [place] [address], [place] [id number] Jul, [facility] [address] [id number] [address] [place] [address], [place] [address] 11 Jul, 2011 [facility] [address] [id number] [address] [place] [address], [place] [id number] 10 Jul, 2011 [facility] [address] [id number] [address] [place] [address], [place] [id number] Jul, [facility] [address] [id number] [address] [place] [address], [place] [id number] 07 Jul, 2011 [facility] [address] [id number] [address] [place] [address], [place] [id number] 05 Jul, 2011 [facility] [address] [id number] [address] [place] [address], [place] [id number] 03 Jul, 2011 [facility] [address] [id number] [address] [place] [address], [place] [address] Jul, [facility] [address] [id number] [address] [place] [address], [place] [id number] Jul, [facility] [address] [id number] [address] [place] [address], [place] [address] Jun, [facility] [address] [id number] [address] [place] [address], [place] [address] Jun, [facility] [address] [id number] [address] [place] [address], [place] [address] Jun, [facility] [address] [id number] [address] [place] [address], [place] [id number] Jun, [facility] [address] [id number] [address] [place] [address], [place] [id number] May, [facility] [address] [id number] [address] [place] [address], [place] [id number] 16 May, 2011 [facility] [address] [id number] [address] [place] [address], [place] [address] May, [facility] [address] [id number] [address] [place] [address], [place] [address] Apr, [facility] [address] [id number] [address] [place] [address], [place] [id number] 18 Apr, 2011 [facility] [address] [id number] [address] [place] [address], [place] [id number] 13 Apr, 2011 [facility] [address] [id number] [address] [place] [address], [place] [address] Apr, [facility] [address] [id number] [address] [place] [address], [place] [address] Apr, [facility] [address] [id number] [address] [place] [address], [place] [address] Mar, [facility] [address] [id number] [address] [place] [address], [place] [id number] Mar, [facility] [address] [id number] [address] [place] [address], [place] [id number] Mar, [facility] [address] [id number] [address] [place] [address], [place] [address] Mar, [facility] [address] [id number] [address] [place] [address], [place] [address] Mar, [facility] [address] [id number] [address] [place] [address], [place] [id number] Mar, [facility] [address] [id number] [address] [place] [address], [place] [id number] Mar, [facility] [address] [id number] [address] [place] [address], [place] [id number] Feb, [facility] [address] [id number] [address] [place] [address], [place] [id number] Feb, [facility] [address] [id number] [address] [place] [address], [place] [id number] Feb, [facility] [address] [id number] [address] [place] [address], [place] [address] Feb, [facility] [address] [id number] [address] [place] [address], [place] [id number] 16 Feb, 2011 [facility] [address] [id number] [address] [place] [address], [place] [id number] 14 Feb, 2011 [facility] [address] [id number] [address] [place] [address], [place] [id number] 10 Feb, 2011 [facility] [address] [id number] [address] [place] [address], [place] [id number] 31 Jan, 2011 [facility] [address] [id number] [address] [place] [address], [place] [address] 31 Jan, 2011 [facility] [address] [id number] [address] [place] [address], [place] [id number] 31 Jan, 2011 [facility] [address] [id number] [address] [place] [address], [place] [id number] 18 Jan, 2011 [facility] [address] [id number] [address] [place] [address], [place] [id number] 17 Jan, 2011 [facility] [address] [id number] [address] [place] [address], [place] [id number] 17 Jan, 2011 [facility] [address] [id number] [address] [place] [address], [place] [id number] 17 Jun, 2010 [facility] [address] [id number] [address] [place] [address], [place] [id number] 30 Mar, 2010 [facility] [address] [id number] [address] [place] [address], [place] [id number] 20 Mar, 2010 [facility] [address] [id number] [address] [place] [address], [place] [id number] 14 Mar, 2010 [facility] [address] [id number] [address] [place] [address], [place] [id number] 14 Mar, 2010 [facility] [address] [id number] [address] [place] [address], [place] [id number] 13 Mar, 2010 [facility] [address] [id number] [address] [place] [address], [place] [id number] 07 Mar, 2010 [facility] [address] [id number] [address] [place] [address], [place] [id number] 02 Mar, 2010 [facility] [address] [id number] [address] [place] [address], [place] [id number] Mar, [facility] [address] [id number] [address] [place] [address], [place] [id number] 30 Feb, 2010 [facility] [address] [id number] [address] [place] [address], [place] [id number] 29 Feb, 2010 [facility] [address] [id number] [address] [place] [address], [place] [id number] 17 Feb, 2010 [facility] [address] [id number] [address] [place] [address], [place] [id number] 17 Feb, 2010 [facility] [address] [id number] [address] [place] [address], [place] [id number] 16 Feb, 2010 [facility] [address] [id number] [address] [place] [address], [place] [id number] 08 Feb, 2010 [facility] [address] [id number] [address] [place] [address], [place] [id number] 04 Feb, 2010 [facility] [address] [id number] [address] [place] [address], [place] [id number] Feb, [facility] [address] [id number] [address] [place] [address], [place] [id number] Jan, [facility] [address] [id number] [address] [place] [address], [place] [id number] Jan, [facility] [address] [id number] [address] [place] [address], [place] [id number] Jan, [facility] [address] [id number] [address] [place] [address], [place] [id number] 18 Jan, 2010 [facility] [address] [id number] [address] [place] [address], [place] [id number] 29 Mar, 2009 [facility] [address] [id number] [address] [place] [address], [place] [id number] 22 Mar, 2009 [facility] [address] [id number] [address] [place] [address], [place] [id number] 19 Mar, 2009 [facility] [address] [id number] [address] [place] [address], [place] [id number] 19 Mar, 2009 [facility] [address] [id number] [address] [place] [address], [place] [id number] Mar, [facility] [address] [facility] [id number] [address] [place] [id number] Mar, [facility] [address] [facility] [id number] [address] [place] [id number] Feb, [facility] [address] [facility] [id number] [address] [place] [id number] Feb, [facility] [address] [facility] [id number] [address] [place] [id number] Jan, [facility] [address] [facility] [id number] [address] [place] [id number] Sep, [facility] [address] [facility] [id number] [address] [place] [id number] May, IMMUNIZATIONS No Known Immunizations SOCIAL HISTORY [...] Surgical History Left ear surgery Hospitalization History [facility] in [place]- Spontane ous Pneumothorax Hospitalization History [facility]- Colon resection Hospitalization [facility] - diarrhea/ couldnt urin ate nov 2017
[2019-08-28 09:26] LABS: BASOPHILS % (AUTO) 0 % (0-10); EOSINOPHILS # (AUTO) 0.1 10^3/uL (0.0-0.3); EOSINOPHILS % (AUTO) 0 % (0-10); HEMATOCRIT 45 % (40-54); HEMOGLOBIN 14.8 G/DL (13.3-17.7); LYMPHOCYTES # (AUTO) 1.6 X 10^3 (1.0-4.0); LYMPHOCYTES % (AUTO) 11 % (12-44); MEAN CORPUSCULAR HEMOGLOBIN 29 PG (25-34); MEAN CORPUSCULAR HGB CONC 33 G/DL (32-36); MEAN CORPUSCULAR VOLUME 89 FL (80-99); MEAN PLATELET VOLUME 8.4 FL (7.4-10.4); MONOCYTES # (AUTO) 1.3 X 10^3 (0.0-1.0); MONOCYTES % (AUTO) 9 % (0-12); NEUTROPHILS # (AUTO) 11.9 X 10^3 (1.8-7.8); NEUTROPHILS % (AUTO) 80 % (42-75); PLATELET COUNT 321 10^3/uL (130-400); RED CELL DISTRIBUTION WIDTH 15.7 % (10.0-14.5); WHITE BLOOD COUNT 14.9 10^3/uL (4.3-11.0)
--- OUTSIDE RECORDS SUMMARY | 2019-08-28 09:33 | XMS REPORT ---
Author Author Dixon Lundberg Doctor Organization [facility] Address Unknown Phone Unavailable Care Team Providers Care Expanded Function Dental Assistant Name Role Phone Migration, Doctor Unavailable Unavailable PROBLEMS Type Condition ICD9-CM Code SFL24-UG Code Onset Dates Condition S tatus SNOMED Code Problem Insomnia G47.00 Active 042682690 Problem Anxiety F41.9 Active 99850796 Problem HTN (hypertension) I10 Active 3 3217314 Problem Hyperlipidemia E78.5 Active 73025 004 Problem Thoracic back pain, unspecif ied back pain laterality, unspecified chronicity M54.6 Active 139653982 Problem Vitamin D deficiency E55.9 Active 14789990 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 84297850 Problem Chronic pain G89.29 Active 2993897 1 Problem Schizophrenia, unspecified type F20.9 Active 24117030 Problem Constipation K59.00 Active 8360902 8 Problem Environmental allergies Z91.09 Active 629975890 Problem Primary insomnia F51.01 Active 397 2004 Problem Chronic kidney disease, stage III (moderate) N18.3 Active 693542926 Problem Vision loss H54.7 Active 19270538 1 ALLERGIES No Information ENCOUNTERS Encounter Location Date Diagnosis [place] [id number] [place] [address] Dec, Thoracic back pain, unspecif ied back pain laterality, unspecified chronicity M54.6 [place] [address] [place] [id number] [place] [address] Dec, Thoracic back pain, unspecif ied back pain laterality, unspecified chronicity M54.6 [place] [address] [place] [id number] [place] [address] Nov, Thoracic back pain, unspecif ied back pain laterality, unspecified chronicity M54.6 [place] [address] [place] [id number] [place] [address] Nov, Anxiety F41.9 and Thoracic b ack pain, unspecified back pain laterality, unspecified chronicity M54.6 [facility] [address] [id number] [address] [place] [address] Nov, [facility] [address] [id number] [address] [place] [address] Nov, [facility] [address] [id number] [address] [place] [address] Nov, [facility] [address] [id number] [address] [place] [address] Oct, Thoracic back pain, unspecif ied back pain laterality, unspecified chronicity M54.6 [facility] [address] [id number] [address] [place] [address] Oct, Anxiety F41.9 and Thoracic b ack pain, unspecified back pain laterality, unspecified chronicity M54.6 [facility] [address] [id number] [address] [place] [address] Oct, Schizophrenia, unspecified t ype F20.9 and Acute kidney injury N17.9 [facility] [address] [id number] [address] [place] [address] Oct, [facility] [address] [id number] [address] [place] [address] Oct, [facility] [address] [id number] [address] [place] [address] Oct, Thoracic back pain, unspecif ied back pain laterality, unspecified chronicity M54.6 [facility] [address] [id number] [address] [place] [address] Oct, [facility] [address] [id number] [address] [place] [address] Oct, [facility] [address] [id number] [address] [place] [address] Sep, Anxiety F41.9 [facility] [address] [id number] [address] [place] [address] Sep, [facility] [address] [id number] [address] [place] [address] Sep, Thoracic back pain, unspecif ied back pain laterality, unspecified chronicity M54.6 [facility] [address] [id number] [address] [place] [address] Sep, [facility] [address] [id number] [address] [place] [address] Sep, [facility] [address] [id number] [address] [place] [address] Sep, [facility] [address] [id number] [address] [place] [address] Sep, [facility] [address] [id number] [address] [place] [address] Sep, [facility] [address] [id number] [address] [place] [address] Sep, [facility] [address] [id number] [address] [place] [address] Sep, Chronic pain G89.29 ; Chroni c kidney disease, stage III (moderate) N18.3 ; Hyperlipidemia E78.5 and Insomnia G47.00 [facility] [address] [id number] [address] [place] [address] Sep, Thoracic back pain, unspecif ied back pain laterality, unspecified chronicity M54.6 [facility] [address] [id number] [address] [place] [address] August, Anxiety F41.9 [facility] [address] 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 [facility] [address] [id number] [address] [place] [address] August, [facility] [address] [id number] [address] [place] [address] August, [facility] [address] [id number] [address] [place] [address] August, Thoracic back pain, unspecif ied back pain laterality, unspecified chronicity M54.6 [facility] [address] [id number] [address] [place] [address] August, [facility] [address] [id number] [address] [place] [address] August, Anxiety F41.9 and Thoracic b ack pain, unspecified back pain laterality, unspecified chronicity M54.6 [facility] [address] [id number] [address] [place] [address] Jul, [facility] [address] [id number] [address] [place] [address] Jul, Thoracic back pain, unspecif ied back pain laterality, unspecified chronicity M54.6 [facility] [address] [id number] [address] [place] [address] Jun, Anxiety F41.9 and Thoracic b ack pain, unspecified back pain laterality, unspecified chronicity M54.6 [facility] [address] [id number] [address] [place] [address] Jun, Anxiety F41.9 and Thoracic b ack pain, unspecified back pain laterality, unspecified chronicity M54.6 [facility] [address] [id number] [address] [place] [address] Jun, Thoracic back pain, unspecif ied back pain laterality, unspecified chronicity M54.6 [facility] [address] [id number] [address] [place] [address] Jun, Anxiety F41.9 and Thoracic b ack pain, unspecified back pain laterality, unspecified chronicity M54.6 [facility] [address] [facility] [id number] [address] [place] [address] May, [facility] [address] [id number] [address] [place] [address] May, [facility] [address] [facility] [id number] [address] [place] [address] May, [facility] [address] [facility] [id number] [address] [place] [address] May, Anxiety F41.9 and Encounter for medication monitoring Z51.81 [place] [address] [facility] [id number] [address] [place] [address] May, Anxiety F41.9 and Thoracic b ack pain, unspecified back pain laterality, unspecified chronicity M54.6 [place] [address] [facility] [id number] [address] [place] [address] Apr, Hyperlipidemia 272.4 [place] [address] [facility] [id number] [address] [place] [address] Apr, Chronic pain G89.29 ; Anxiet y F41.9 ; Cervical radiculopathy M54.12 and Vision loss H54.7 [facility] [address] [facility] [id number] [address] [place] [address] Apr, [facility] [address] [facility] [id number] [address] [place] [address] Apr, Anxiety F41.9 and Thoracic b ack pain, unspecified back pain laterality, unspecified chronicity M54.6 [facility] [address] [facility] [id number] [address] [place] [address] Mar, [facility] [address] [id number] [address] [place] [address] Mar, Anxiety F41.9 and Thoracic b ack pain, unspecified back pain laterality, unspecified chronicity M54.6 [facility] [address] [id number] [address] [place] [address] 14 Feb, 2018 Anxiety F41.9 and Thoracic b ack pain, unspecified back pain laterality, unspecified chronicity M54.6 [facility] [address] [id number] [address] [place] [address] 07 Feb, 2018 Thoracic back pain, unspecif ied back pain laterality, unspecified chronicity M54.6 [facility] [address] [id number] [address] [place] [address] 29 Jan, 2018 [facility] [address] [id number] [address] [place] [address] Jan, Anxiety F41.9 and Thoracic b ack pain, unspecified back pain laterality, unspecified chronicity M54.6 [facility] [address] [id number] [address] [place] [address] Dec, Diarrhea of presumed infecti ous origin R19.7 [facility] [address] [id number] [address] [place] [address] Dec, Diarrhea of presumed infecti ous origin R19.7 [facility] [address] [id number] [address] [place] [address] 18 Dec, 2017 Thoracic back pain, unspecif ied back pain laterality, unspecified chronicity M54.6 [facility] [address] [id number] [address] [place] [address] 17 Dec, 2017 [facility] [address] [id number] [address] [place] [address] 17 Dec, 2017 Anxiety F41.9 and Thoracic b ack pain, unspecified back pain laterality, unspecified chronicity M54.6 [place] [address] [facility] [id number] [address] [place] [address] Dec, Diarrhea of presumed infecti ous origin R19.7 [place] [address] [facility] [id number] [address] [place] [address] Dec, [place] [address] [facility] [id number] [address] [place] [address] Dec, Anxiety F41.9 and Thoracic b ack pain, unspecified back pain laterality, unspecified chronicity M54.6 [place] [address] [place] [id number] [place] [address] Dec, Anxiety F41.9 and Thoracic b ack pain, unspecified back pain laterality, unspecified chronicity M54.6 [facility] [address] [place] [id number] Dec, Diarrhea of presumed infectious origin R 19.7 ; Anxiety F41.9 ; Thoracic back pain, unspecified back pain laterality, unspecified chronicity M54.6 and HTN (hypertension) I10 [place] [address] [place] [id number] [place] [address] Dec, Anxiety F41.9 [facility] [address] [place] [id number] Dec, Anxiety F41.9 ; Diarrhea of presumed inf ectious origin R19.7 ; Generalized abdominal pain R10.84 and Localized edema R60.0 [place] [address] [facility] [id number] [address] [place] [address] Nov, [facility] [employer] [address] [place] [id number] Nov, Anxiety F41.9 ; Urinary retention R33.9 ; Diarrhea of presumed infectious origin R19.7 ; Weakness R53.1 ; Acute kidney failure, unspecified N17.9 ; Chronic kidney disease, stage III (moderate) N18.3 and Thoracic back pain, unspecified back pain laterality, unspecified chronicity M54.6 [place] [address] [place] [id number] [place] [address] Oct, Thoracic back pain, unspecif ied back pain laterality, unspecified chronicity M54.6 and Anxiety F41.9 [place] [address] [facility] [id number] [address] [place] [address] Sep, Thoracic back pain, unspecif ied back pain laterality, unspecified chronicity M54.6 and Anxiety F41.9 [place] [address] [facility] [id number] [address] [place] [address] Sep, Thoracic back pain, unspecif ied back pain laterality, unspecified chronicity M54.6 ; Anxiety F41.9 and Encounter for medication monitoring Z51.81 [place] [address] [facility] [id number] [address] [place] [address] August, [place] [address] [place] [id number] [address] [place] [address] August, Thoracic back pain, unspecif ied back pain laterality, unspecified chronicity M54.6 and Anxiety F41.9 [place] [address] [place] [id number] [address] [place] [address] August, Hyperlipidemia E78.5 and HTN (hypertension) I10 [place] [address] [place] [id number] [address] [place] [address] August, [place] [address] [place] [id number] [address] [place] [address] August, Medicare welcome exam Z00.00 ; Chronic kidney failure N18.9 ; Anxiety F41.9 ; Chronic pain G89.29 ; Insomnia G47.00 ; Hyperlipidemia E78.5 ; HTN (hypertension) I10 and Thoracic back pain, unspecified back pain laterality, unspecified chronicity M54.6 [facility] [address] [facility] [id number] [address] [place] [address] Jul, [facility] [address] [facility] [id number] [address] [place] [address] Jul, [facility] [address] [id number] [address] [place] [address] Jul, [place] [address] [id number] [address] [place] [address] Jul, Anxiety F41.9 [place] [address] [id number] [address] [place] [address] Jul, Thoracic back pain, unspecif ied back pain laterality, unspecified chronicity M54.6 and Anxiety F41.9 [place] [address] [id number] [address] [place] [address] Jun, Thoracic back pain, unspecif ied back pain laterality, unspecified chronicity M54.6 and Anxiety F41.9 [place] [address] [id number] [address] [place] [address] 12 May, 2017 Thoracic back pain, unspecif ied back pain laterality, unspecified chronicity M54.6 and Anxiety F41.9 [place] [address] [id number] [address] [place] [address] Apr, Thoracic back pain, unspecif ied back pain laterality, unspecified chronicity M54.6 and Anxiety F41.9 [place] [address] [id number] [address] [place] [address] Mar, [place] [address] [id number] [address] [place] [address] 14 Mar, 2017 Thoracic back pain, unspecif ied back pain laterality, unspecified chronicity M54.6 and Anxiety F41.9 [place] [address] [id number] [address] [place] [address] 14 Mar, 2017 Thoracic back pain, unspecif ied back pain laterality, unspecified chronicity M54.6 ; HTN (hypertension) I10 ; Hyperlipidemia E78.5 and Anxiety F41.9 [place] [address] [id number] [address] [place] [address] Feb, Thoracic back pain, unspecif ied back pain laterality, unspecified chronicity M54.6 and Anxiety F41.9 [facility] [address] [id number] [address] [place] [address] Nov, [facility] [address] [facility] [id number] [address] [place] [address] Oct, [facility] [address] [facility] [id number] [address] [place] [address] Oct, Thoracic back pain, unspecif ied back pain laterality, unspecified chronicity M54.6 [facility] [address] [facility] [id number] [address] [place] [address] Oct, HTN (hypertension) I10 ; Con stipation K59.00 ; Hyperlipidemia E78.5 ; Thoracic back pain, unspecified back pain laterality, unspecified chronicity M54.6 ; Chronic pain G89.29 ; Anxiety F41.9 ; Chronic kidney failure N18.9 ; Environmental allergies Z91.09 ; Vitamin D deficiency E55.9 and Primary insomnia F51.01 [facility] [address] [facility] [id number] [address] [place] [address] Sep, Anxiety F41.9 [facility] [address] [facility] [id number] [address] [place] [address] Sep, [facility] [address] [facility] [id number] [address] [place] [address] August, Anxiety F41.9 [facility] [address] [facility] [id number] [address] [place] [address] August, [facility] [address] [facility] [id number] [address] [place] [address] Jul, Anxiety F41.9 [facility] [address] [facility] [id number] [address] [place] [address] Jul, [facility] [address] [facility] [id number] [address] [place] [address] Jun, Anxiety F41.9 [facility] [address] [facility] [id number] [address] [place] [address] Jun, [facility] [address] [id number] [address] [place] [address] May, [facility] [address] [facility] [id number] [address] [place] [address] May, [facility] [address] [facility] [id number] [address] [place] [address] May, [facility] [address] [facility] [id number] [address] [place] [address] Apr, [facility] [address] [facility] [id number] [address] [place] [address] Apr, [facility] [address] [facility] [id number] [address] [place] [address] Apr, Anxiety F41.9 [facility] [address] [facility] [id number] [address] [place] [address] Apr, Anxiety F41.9 [facility] [address] [facility] [id number] [address] [place] [address] Apr, [facility] [address] [facility] [id number] [address] [place] [address] Mar, HTN (hypertension) I10 ; Phillip mor R25.1 ; Hypercholesterolemia E78.0 ; Constipation K59.00 ; Chronic pain G89.29 ; Hyperlipidemia E78.5 ; Insomnia G47.00 ; Anxiety F41.9 and Thoracic back pain, unspecified back pain laterality, unspecified chronicity M54.6 [facility] [address] [facility] [id number] [address] [place] [address] Mar, Tremor R25.1 ; HTN (hyperten stas) I10 ; Hypercholesterolemia E78.0 ; Constipation K59.00 ; Chronic pain G89.29 ; Hyperlipidemia E78.5 ; Insomnia G47.00 ; Anxiety F41.9 and Thoracic back pain, unspecified back pain laterality, unspecified chronicity M54.6 [facility] [address] [id number] [address] [place] [address], [place] [address] 07 Mar, 2016 [facility] [address] [id number] [address] [place] [address], [place] [address] Mar, [facility] [address] [id number] [address] [place] [address], [place] [address] Feb, [facility] [address] [id number] [address] [place] [address], [place] [address] Jan, [facility] [address] [id number] [address] [place] [address], [place] [address] Jan, [facility] [address] [id number] [address] [place] [address], [place] [address] 15 Dec, 2015 [facility] [address] [id number] [address] [place] [address], [place] [address] Nov, [facility] [address] [id number] [address] [place] [address], [place] [address] Nov, [facility] [address] [id number] [address] [place] [address], [place] [address] Oct, Anxiety F41.9 [facility] [address] [id number] [address] [place] [address], [place] [address] Oct, Chronic pain G89.29 [facility] [address] [id number] [address] [place] [address], [place] [address] Sep, [facility] [address] [id number] [address] [place] [address] Sep, [facility] [address] [id number] [address] [place] [address], [place] [address] Sep, [facility] [address] [id number] [address] [place] [address], [place] [address] Sep, [facility] [address] [id number] [address] [place] [address], [place] [address] 16 Sep, 2015 Chronic pain syndrome G89.4 [facility] [address] [id number] [address] [place] [address] Sep, HTN (hypertension) I10 ; Chr onic pain G89.29 ; Hypercholesterolemia E78.0 ; Chronic kidney failure N18.9 ; Constipation, unspecified constipation type K59.00 ; Anxiety F41.9 and Thoracic back pain, unspecified back pain laterality, unspecified chronicity M54.6 [place] [address] [place] [id number] [place] [address] August, Chronic pain syndrome G89.4 [place] [address] [address] August, Chronic pain syndrome G89.4 [place] [address] [address] Jul, Anxiety disorder, unspecifie d F41.9 and Chronic pain syndrome G89.4 [place] [address] [address] Jul, Insomnia, unspecified G47.00 and Chronic pain syndrome G89.4 [place] [address] [place] [id number] [place] [address] Jul, Allergic rhinitis J30.9 [place] [address] [place] [id number] [address] [place] [id number] Jul, Constipation, unspecified K5 9.00 [place] [address] [address] [place] [id number] [address] [place] [id number] Jul, [place] [address] [address] [place] [id number] [address] [place] [id number] Jun, [place] [address] [id number] Jun, [place] [address] [address] [place] [id number] [address] [place] [id number] Jun, [place] [address] [id number] Jun, [facility] [address] [facility] [id number] [address] [place] [id number] Jun, [facility] [address] [facility] [id number] [address] [place] [id number] Jun, [facility] [address] [facility] [id number] [address] [place] [id number] May, [facility] [address] [facility] [id number] [address] [place] [id number] May, [facility] [address] [facility] [id number] [address] [place] [id number] May, Anxiety F41.9 ; Insomnia G47 .00 ; Hyperlipidemia E78.5 ; Chronic pain G89.29 ; HTN (hypertension) I10 ; Environmental allergies V15.09 and Constipation 564.00 [facility] [address] [facility] [id number] [address] [place] [address] Apr, [facility] [address] [facility] [id number] [address] [place] [address] Apr, [facility] [address] [facility] [id number] [address] [place] [address] Apr, [facility] [address] [facility] [id number] [address] [place] [address] Mar, [facility] [address] [facility] [id number] [address] [place] [address] Mar, [facility] [address] [facility] [id number] [address] [place] [address] Mar, [facility] [address] [facility] [id number] [address] [place] [address] Feb, [facility] [address] [facility] [id number] [address] [place] [address] Feb, [facility] [address] [facility] [id number] [address] [place] [address] Feb, [facility] [address] [place] [id number] [address] [place] [address] Jan, HTN (hypertension) I10 ; Con stipation K59.00 ; Chronic pain G89.29 ; Hyperlipidemia E78.5 ; Hypercholesterolemia E78.0 ; Insomnia G47.00 and Anxiety F41.[address] [address] Jan, [address] [address] Dec, [address] [address] Nov, [address] [address] Oct, Chronic kidney disease, unsp ecified 585.9 ; Chronic pain syndrome 338.4 ; Hyperlipidemia 272.4 and Essential hypertension 401.[address] [address] Oct, Chronic kidney disease 585.[address] [address] Oct, [address] [address] Oct, Chronic kidney disease, unsp ecified 585.9 ; Hypercalcemia 275.42 ; Hyperlipidemia 272.4 ; Essential hypertension 401.9 ; Chronic pain syndrome 338.4 ; Insomnia 780.52 ; Constipation 564.00 ; Environmental allergies V15.09 and Anxiety 300.[address] [address] Oct, Chronic kidney disease 585.[address] [address] Oct, [address] [address] Oct, Chronic kidney disease 585.9 and Hyperlipidemia 272.4 [facility] [address] [id number] [address] [place] [address], [place] [address] 10 Oct, 2014 [facility] [address] [id number] [address] [place] [address], [place] [address] 10 Oct, 2014 [facility] [address] [id number] [address] [place] [address], [place] [address] 18 Sep, 2014 [facility] [address] [id number] [address] [place] [address], [place] [address] 15 Sep, 2014 [facility] [address] [id number] [address] [place] [address], [place] [address] Sep, Chronic kidney disease 585.9 and Hyperlipidemia 272.4 [facility] [address] [id number] [address] [place] [address], [place] [address] Sep, [facility] [address] [id number] [address] [place] [address], [place] [address] August, [facility] [address] [id number] [address] [place] [address], [place] [address] August, [facility] [address] [id number] [address] [place] [address], [place] [address] 14 Jul, 2014 [facility] [address] [id number] [address] [place] [address], [place] [address] 13 Jul, 2014 [facility] [address] [id number] [address] [place] [address], [place] [address] 20 Jun, 2014 [facility] [address] [id number] [address] [place] [address], [place] [address] 20 Jun, 2014 [facility] [address] [id number] [address] [place] [address], [place] [address] 16 Jun, 2014 [facility] [address] [id number] [address] [place] [address], [place] [address] 16 Jun, 2014 [facility] [address] [id number] [address] [place] [address], [place] [address] Jun, [facility] [address] [id number] [address] [place] [address], [place] [address] Jun, [facility] [address] [id number] [address] [place] [address], [place] [address] Jun, [facility] [address] [id number] [address] [place] [address], [place] [address] Jun, [facility] [address] [id number] [address] [place] [address], [place] [address] May, [facility] [address] [id number] [address] [place] [address], [place] [address] May, [facility] [address] [id number] [address] [place] [address], [place] [address] May, [facility] [address] [id number] [address] [place] [address], [place] [address] May, [facility] [address] [id number] [address] [place] [address], [place] [address] Apr, [facility] [address] [id number] [address] [place] [address], [place] [address] Apr, [facility] [address] [id number] [address] [place] [address], [place] [address] Apr, [facility] [address] [id number] [address] [place] [address], [place] [address] Apr, [facility] [address] [id number] [address] [place] [address] Apr, [facility] [address] [id number] [address] [place] [address], [place] [address] Apr, [facility] [address] [id number] [address] [place] [address], [place] [address] Apr, [facility] [address] [id number] [address] [place] [address], [place] [address] Apr, [facility] [address] [id number] [address] [place] [address], [place] [address] 16 Apr, 2014 [facility] [address] [id number] [address] [place] [address], [place] [address] Apr, [facility] [address] [id number] [address] [place] [address], [place] [address] Apr, [facility] [address] [id number] [address] [place] [address], [place] [address] Mar, [facility] [address] [id number] [address] [place] [address], [place] [address] Mar, [facility] [address] [id number] [address] [place] [address], [place] [address] Feb, [facility] [address] [id number] [address] [place] [address], [place] [address] Feb, [facility] [address] [id number] [address] [place] [address], [place] [address] Feb, [facility] [address] [id number] [address] [place] [address], [place] [address] Feb, [facility] [address] [id number] [address] [place] [address], [place] [address] Feb, [facility] [address] [id number] [address] [place] [address], [place] [address] Feb, [facility] [address] [id number] [address] [place] [address], [place] [address] Feb, [facility] [address] [id number] [address] [place] [address], [place] [address] Feb, [facility] [address] [id number] [address] [place] [address], [place] [address] Feb, [facility] [address] [id number] [address] [place] [address], [place] [address] Feb, [facility] [address] [id number] [address] [place] [address], [place] [address] Jan, [facility] [address] [id number] [address] [place] [address], [place] [address] Jan, [facility] [address] [id number] [address] [place] [address], [place] [address] Jan, [facility] [address] [id number] [address] [place] [address], [place] [address] Jan, [facility] [address] [id number] [address] [place] [address], [place] [address] Jan, [facility] [address] [id number] [address] [place] [address], [place] [address] 24 Jan, 2014 [facility] [address] [id number] [address] [place] [address], [place] [address] Jan, [facility] [address] [id number] [address] [place] [address], [place] [address] Jan, [facility] [address] [id number] [address] [place] [address], [place] [address] 16 Jan, 2014 [facility] [address] [id number] [address] [place] [address], [place] [address] Jan, [facility] [address] [id number] [address] [place] [address], [place] [address] 06 Jan, 2014 [facility] [address] [id number] [address] [place] [address], [place] [address] 26 Dec, 2013 [facility] [address] [id number] [address] [place] [address], [place] [address] 26 Dec, 2013 [facility] [address] [id number] [address] [place] [address], [place] [address] 19 Dec, 2013 [facility] [address] [id number] [address] [place] [address], [place] [address] 19 Dec, 2013 [facility] [address] [id number] [address] [place] [address], [place] [address] 18 Sep, 2013 [facility] [address] [id number] [address] [place] [address], [place] [address] Dec, [facility] [address] [id number] [address] [place] [address], [place] [address] Dec, [facility] [address] [id number] [address] [place] [address], [place] [address] Dec, [facility] [address] [id number] [address] [place] [address], [place] [address] Nov, [facility] [address] [id number] [address] [place] [address], [place] [address] Nov, [facility] [address] [id number] [address] [place] [address], [place] [address] Nov, [facility] [address] [id number] [address] [place] [address], [place] [address] Nov, [facility] [address] [id number] [address] [place] [address], [place] [address] Nov, [facility] [address] [id number] [address] [place] [address], [place] [address] Nov, [facility] [address] [id number] [address] [place] [address], [place] [address] Nov, [facility] [address] [id number] [address] [place] [address], [place] [address] Nov, [facility] [address] [id number] [address] [place] [address], [place] [address] Oct, [facility] [address] [id number] [address] [place] [address], [place] [address] Oct, [facility] [address] [id number] [address] [place] [address], [place] [address] Oct, [facility] [address] [id number] [address] [place] [address], [place] [address] Oct, [facility] [address] [id number] [address] [place] [address], [place] [address] Sep, [facility] [address] [id number] [facility] [place] [address] Sep, [facility] [address] [id number] [facility] [place] [address] Sep, [facility] [address] [id number] [facility] [place] [address] Sep, [facility] [address] [id number] [address] [place] [address], [place] [address] Sep, [facility] [address] [id number] [address] [place] [address], [place] [address] Sep, [facility] [address] [id number] [address] [place] [address], [place] [address] Sep, [facility] [address] [id number] [address] [place] [address], [place] [address] Sep, [facility] [address] [id number] [address] [place] [address], [place] [address] August, [facility] [address] [id number] [address] [place] [address], [place] [address] August, [facility] [address] [id number] [address] [place] [address], [place] [address] August, [facility] [address] [id number] [address] [place] [address], [place] [address] August, [facility] [address] [id number] [address] [place] [address], [place] [address] August, [facility] [address] [id number] [address] [place] [address], [place] [address] August, [facility] [address] [id number] [address] [place] [address], [place] [address] August, [facility] [address] [id number] [address] [place] [address], [place] [address] August, [facility] [address] [id number] [address] [place] [address], [place] [address] August, [facility] [address] [id number] [address] [place] [address], [place] [address] August, [facility] [address] [id number] [address] [place] [address], [place] [address] Jul, [facility] [address] [id number] [address] [place] [address], [place] [address] Jul, [facility] [address] [id number] [address] [place] [address], [place] [address] Jul, [facility] [address] [id number] [address] [place] [address], [place] [address] Jul, [facility] [address] [id number] [address] [place] [address], [place] [address] Jul, [facility] [address] [id number] [address] [place] [address], [place] [address] Jul, [facility] [address] [id number] [address] [place] [address], [place] [address] Jul, [facility] [address] [id number] [address] [place] [address], [place] [address] Jul, [facility] [address] [id number] [address] [place] [address], [place] [address] Jun, [facility] [address] [id number] [address] [place] [address], [place] [address] Jun, [facility] [address] [id number] [address] [place] [address], [place] [address] Jun, [facility] [address] [id number] [address] [place] [address], [place] [address] Jun, [facility] [address] [id number] [address] [place] [address], [place] [address] Jun, [facility] [address] [id number] [address] [place] [address], [place] [address] Jun, [facility] [address] [id number] [address] [place] [address], [place] [address] May, [facility] [address] [id number] [address] [place] [address], [place] [address] May, [facility] [address] [id number] [address] [place] [address], [place] [address] May, [facility] [address] [id number] [address] [place] [address], [place] [address] May, [facility] [address] [id number] [address] [place] [address], [place] [address] May, [facility] [address] [id number] [address] [place] [address], [place] [address] May, [facility] [address] [id number] [address] [place] [address], [place] [address] May, [facility] [address] [id number] [address] [place] [address], [place] [address] Apr, [facility] [address] [id number] [address] [place] [address], [place] [address] Apr, [facility] [address] [id number] [address] [place] [address], [place] [address] Apr, [facility] [address] [id number] [address] [place] [address], [place] [address] Apr, [facility] [address] [id number] [address] [place] [address], [place] [address] Apr, [facility] [address] [id number] [address] [place] [address], [place] [address] Apr, [facility] [address] [id number] [address] [place] [address], [place] [address] Mar, [facility] [address] [id number] [address] [place] [address], [place] [address] Mar, [facility] [address] [id number] [address] [place] [address], [place] [address] Mar, [facility] [address] [id number] [address] [place] [address], [place] [address] Mar, [facility] [address] [id number] [address] [place] [address], [place] [address] Mar, [facility] [address] [id number] [address] [place] [address], [place] [address] Mar, [facility] [address] [id number] [address] [place] [address], [place] [address] Mar, [facility] [address] [id number] [address] [place] [address], [place] [address] Mar, [facility] [address] [id number] [address] [place] [address], [place] [address] Mar, [facility] [address] [id number] [address] [place] [address], [place] [address] Mar, [facility] [address] [id number] [address] [place] [address], [place] [address] Feb, [facility] [address] [id number] [address] [place] [address], [place] [address] Feb, [facility] [address] [id number] [address] [place] [address], [place] [address] Feb, [facility] [address] [id number] [address] [place] [address], [place] [address] Feb, [facility] [address] [id number] [address] [place] [address] 14 Feb, 2013 [facility] [address] [id number] [address] [place] [address], [place] [address] 14 Feb, 2013 [facility] [address] [id number] [address] [place] [address], [place] [address] Feb, [facility] [address] [id number] [address] [place] [address] Feb, [facility] [address] [id number] [address] [place] [address] 08 Feb, 2013 [facility] [address] [id number] [address] [place] [address], [place] [address] Feb, [facility] [address] [id number] [address] [place] [address] Jan, [facility] [address] [id number] [address] [place] [address], [place] [address] Jan, [facility] [address] [id number] [address] [place] [address], [place] [address] Jan, [facility] [address] [id number] [address] [place] [address], [place] [address] Jan, [facility] [address] [id number] [address] [place] [address], [place] [address] Jan, [facility] [address] [id number] [address] [place] [address], [place] [address] Jan, [facility] [address] [id number] [address] [place] [address], [place] [address] Jan, [facility] [address] [id number] [address] [place] [address] Jan, [facility] [address] [id number] [address] [place] [address], [place] [address] Jan, [facility] [address] [id number] [address] [place] [address] 25 Dec, 2012 [facility] [address] [id number] [address] [place] [address], [place] [address] 23 Dec, 2012 [facility] [address] [id number] [address] [place] [address], [place] [address] 21 Dec, 2012 [facility] [address] [id number] [address] [place] [address], [place] [address] 13 Dec, 2012 [facility] [address] [id number] [address] [place] [address], [place] [address] Nov, [facility] [address] [id number] [address] [place] [address], [place] [address] Nov, [facility] [address] [id number] [address] [place] [address], [place] [address] Nov, [facility] [address] [id number] [address] [place] [address], [place] [address] Nov, [facility] [address] [id number] [address] [place] [address], [place] [address] Nov, [facility] [address] [id number] [address] [place] [address], [place] [address] Nov, [facility] [address] [id number] [address] [place] [address], [place] [address] Oct, [facility] [address] [id number] [address] [place] [address], [place] [address] Oct, [facility] [address] [id number] [address] [place] [address], [place] [address] Oct, [facility] [address] [id number] [address] [place] [address], [place] [address] Oct, [facility] [address] [id number] [address] [place] [address], [place] [address] Sep, [facility] [address] [id number] [address] [place] [address], [place] [address] Sep, [facility] [address] [id number] [address] [place] [address], [place] [address] Sep, [facility] [address] [id number] [address] [place] [address], [place] [address] Sep, [facility] [address] [id number] [address] [place] [address], [place] [address] Sep, [facility] [address] [id number] [address] [place] [address], [place] [address] August, [facility] [address] [id number] [address] [place] [address], [place] [address] August, [facility] [address] [id number] [address] [place] [address], [place] [address] Jul, [facility] [address] [id number] [address] [place] [address], [place] [address] Jul, [facility] [address] [id number] [address] [place] [address], [place] [address] 15 Jul, 2012 [facility] [address] [id number] [address] [place] [address], [place] [address] Jul, [facility] [address] [id number] [address] [place] [address], [place] [address] Jul, [facility] [address] [id number] [address] [place] [address], [place] [address] Jun, [facility] [address] [id number] [address] [place] [address], [place] [address] Jun, [facility] [address] [id number] [address] [place] [address], [place] [address] Jun, [facility] [address] [id number] [address] [place] [address], [place] [address] Jun, [facility] [address] [id number] [address] [place] [address], [place] [address] Jun, [facility] [address] [id number] [address] [place] [address], [place] [address] May, [facility] [address] [id number] [address] [place] [address], [place] [address] May, [facility] [address] [id number] [address] [place] [address], [place] [address] May, [facility] [address] [id number] [address] [place] [address], [place] [address] May, [facility] [address] [id number] [address] [place] [address], [place] [address] May, [facility] [address] [id number] [address] [place] [address], [place] [address] 14 May, 2012 [facility] [address] [id number] [address] [place] [address], [place] [address] 13 May, 2012 [facility] [address] [id number] [address] [place] [address], [place] [address] 08 May, 2012 [facility] [address] [id number] [address] [place] [address], [place] [address] 04 May, 2012 [facility] [address] [id number] [address] [place] [address], [place] [address] Apr, [facility] [address] [id number] [address] [place] [address], [place] [address] Apr, [facility] [address] [id number] [address] [place] [address], [place] [address] Apr, [facility] [address] [id number] [address] [place] [address], [place] [address] Apr, [facility] [address] [id number] [address] [place] [address], [place] [address] Apr, [facility] [address] [id number] [address] [place] [address], [place] [address] Mar, [facility] [address] [id number] [address] [place] [address], [place] [address] Mar, [facility] [address] [id number] [address] [place] [address], [place] [address] Mar, [facility] [address] [id number] [address] [place] [address], [place] [address] Mar, [facility] [address] [id number] [address] [place] [address], [place] [address] Mar, [facility] [address] [id number] [address] [place] [address], [place] [address] Mar, [facility] [address] [id number] [address] [place] [address], [place] [address] 17 Mar, 2012 [facility] [address] [id number] [address] [place] [address], [place] [address] 17 Mar, 2012 [facility] [address] [id number] [address] [place] [address], [place] [address] Mar, [facility] [address] [id number] [address] [place] [address], [place] [address] Mar, [facility] [address] [id number] [address] [place] [address], [place] [address] 30 Feb, 2012 [facility] [address] [id number] [address] [place] [address], [place] [address] 30 Feb, 2012 [facility] [address] [id number] [address] [place] [address], [place] [address] 29 Feb, 2012 [facility] [address] [id number] [address] [place] [address], [place] [address] Feb, [facility] [address] [id number] [address] [place] [address], [place] [address] Feb, [facility] [address] [id number] [address] [place] [address], [place] [address] Feb, [facility] [address] [id number] [address] [place] [address], [place] [address] Feb, [facility] [address] [id number] [address] [place] [address], [place] [address] Feb, [facility] [address] [id number] [address] [place] [address], [place] [address] 16 Feb, 2012 [facility] [address] [id number] [address] [place] [address], [place] [address] 16 Feb, 2012 [facility] [address] [id number] [address] [place] [address], [place] [address] 13 Feb, 2012 [facility] [address] [id number] [address] [place] [address], [place] [address] 13 Feb, 2012 [facility] [address] [id number] [address] [place] [address], [place] [address] 12 Feb, 2012 [facility] [address] [id number] [address] [place] [address], [place] [address] Feb, [facility] [address] [id number] [address] [place] [address], [place] [address] Feb, [facility] [address] [id number] [address] [place] [address], [place] [address] Feb, [facility] [address] [id number] [address] [place] [address], [place] [address] Feb, [facility] [address] [id number] [address] [place] [address], [place] [address] Feb, [facility] [address] [id number] [address] [place] [address], [place] [address] Jan, [facility] [address] [id number] [address] [place] [address], [place] [address] Jan, [facility] [address] [id number] [address] [place] [address], [place] [address] Jan, [facility] [address] [id number] [address] [place] [address], [place] [address] Jan, [facility] [address] [id number] [address] [place] [address] Jan, [facility] [address] [id number] [address] [place] [address], [place] [address] Jan, [facility] [address] [id number] [address] [place] [address] Jan, [facility] [address] [id number] [address] [place] [address] Jan, [facility] [address] [id number] [address] [place] [address] Jan, [facility] [address] [id number] [address] [place] [address] Jan, [facility] [address] [id number] [address] [place] [address], [place] [address] 24 Dec, 2011 [facility] [address] [id number] [address] [place] [address], [place] [address] Dec, [facility] [address] [id number] [address] [place] [address], [place] [address] Dec, [facility] [address] [id number] [address] [place] [address], [place] [address] Dec, [facility] [address] [id number] [address] [place] [address], [place] [address] Nov, [facility] [address] [id number] [address] [place] [address], [place] [address] Nov, [facility] [address] [id number] [address] [place] [address], [place] [address] Nov, [facility] [address] [id number] [address] [place] [address], [place] [address] Nov, [facility] [address] [id number] [address] [place] [address], [place] [address] Nov, [facility] [address] [id number] [address] [place] [address], [place] [address] Nov, [facility] [address] [id number] [address] [place] [address], [place] [address] Oct, [facility] [address] [id number] [address] [place] [address], [place] [address] Oct, [facility] [address] [id number] [address] [place] [address], [place] [address] Oct, [facility] [address] [id number] [address] [place] [address], [place] [address] Oct, [facility] [address] [id number] [address] [place] [address], [place] [address] Oct, [facility] [address] [id number] [address] [place] [address], [place] [address] 26 Sep, 2011 [facility] [address] [id number] [address] [place] [address], [place] [address] Sep, [facility] [address] [id number] [address] [place] [address], [place] [address] Sep, [facility] [address] [id number] [address] [place] [address], [place] [address] Sep, [facility] [address] [id number] [address] [place] [address], [place] [address] 05 Sep, 2011 [facility] [address] [id number] [address] [place] [address], [place] [address] August, [facility] [address] [id number] [address] [place] [address], [place] [address] August, [facility] [address] [id number] [address] [place] [address], [place] [address] August, [facility] [address] [id number] [address] [place] [address], [place] [address] August, [facility] [address] [id number] [address] [place] [address], [place] [address] Jul, [facility] [address] [id number] [address] [place] [address], [place] [address] 24 Jul, 2011 [facility] [address] [id number] [address] [place] [address], [place] [address] Jul, [facility] [address] [id number] [address] [place] [address], [place] [address] 18 Jul, 2011 [facility] [address] [id number] [address] [place] [address], [place] [address] 18 Jul, 2011 [facility] [address] [id number] [address] [place] [address], [place] [address] 12 Jul, 2011 [facility] [address] [id number] [address] [place] [address], [place] [address] 11 Jul, 2011 [facility] [address] [id number] [address] [place] [address], [place] [address] 10 Jul, 2011 [facility] [address] [id number] [address] [place] [address], [place] [address] Jul, [facility] [address] [id number] [address] [place] [address], [place] [address] 07 Jul, 2011 [facility] [address] [id number] [address] [place] [address], [place] [address] 05 Jul, 2011 [facility] [address] [id number] [address] [place] [address], [place] [address] Jul, [facility] [address] [id number] [address] [place] [address], [place] [address] Jul, [facility] [address] [id number] [address] [place] [address], [place] [address] Jul, [facility] [address] [id number] [address] [place] [address], [place] [address] Jun, [facility] [address] [id number] [address] [place] [address], [place] [address] Jun, [facility] [address] [id number] [address] [place] [address], [place] [address] Jun, [facility] [address] [id number] [address] [place] [address], [place] [address] Jun, [facility] [address] [id number] [address] [place] [address], [place] [address] May, [facility] [address] [id number] [address] [place] [address], [place] [address] May, [facility] [address] [id number] [address] [place] [address], [place] [address] May, [facility] [address] [id number] [address] [place] [address], [place] [address] Apr, [facility] [address] [id number] [address] [place] [address], [place] [address] Apr, [facility] [address] [id number] [address] [place] [address], [place] [address] 13 Apr, 2011 [facility] [address] [id number] [address] [place] [address], [place] [address] Apr, [facility] [address] [id number] [address] [place] [address], [place] [address] 09 Apr, 2011 [facility] [address] [id number] [address] [place] [address], [place] [address] Mar, [facility] [address] [id number] [address] [place] [address], [place] [address] Mar, [facility] [address] [id number] [address] [place] [address], [place] [address] Mar, [facility] [address] [id number] [address] [place] [address], [place] [address] Mar, [facility] [address] [id number] [address] [place] [address], [place] [address] 16 Mar, 2011 [facility] [address] [id number] [address] [place] [address], [place] [address] Mar, [facility] [address] [id number] [address] [place] [address], [place] [address] 05 Mar, 2011 [facility] [address] [id number] [address] [place] [address], [place] [address] Feb, [facility] [address] [id number] [address] [place] [address], [place] [address] Feb, [facility] [address] [id number] [address] [place] [address], [place] [address] Feb, [facility] [address] [id number] [address] [place] [address], [place] [address] Feb, [facility] [address] [id number] [address] [place] [address], [place] [address] 16 Feb, 2011 [facility] [address] [id number] [address] [place] [address], [place] [address] 14 Feb, 2011 [facility] [address] [id number] [address] [place] [address], [place] [address] 10 Feb, 2011 [facility] [address] [id number] [address] [place] [address], [place] [address] 31 Jan, 2011 [facility] [address] [id number] [address] [place] [address], [place] [address] 31 Jan, 2011 [facility] [address] [id number] [address] [place] [address], [place] [address] 31 Jan, 2011 [facility] [address] [id number] [address] [place] [address], [place] [address] 18 Jan, 2011 [facility] [address] [id number] [address] [place] [address], [place] [address] 17 Jan, 2011 [facility] [address] [id number] [address] [place] [address], [place] [address] 17 Jan, 2011 [facility] [address] [id number] [address] [place] [address], [place] [address] 17 Jun, 2010 [facility] [address] [id number] [address] [place] [address], [place] [address] 30 Mar, 2010 [facility] [address] [id number] [address] [place] [address], [place] [address] 20 Mar, 2010 [facility] [address] [id number] [address] [place] [address], [place] [address] 14 Mar, 2010 [facility] [address] [id number] [address] [place] [address], [place] [address] 14 Mar, 2010 [facility] [address] [id number] [address] [place] [address], [place] [address] 13 Mar, 2010 [facility] [address] [id number] [address] [place] [address], [place] [address] 07 Mar, 2010 [facility] [address] [id number] [address] [place] [address], [place] [address] 02 Mar, 2010 [facility] [address] [id number] [address] [place] [address], [place] [address] Mar, [facility] [address] [id number] [address] [place] [address], [place] [address] 30 Feb, 2010 [facility] [address] [id number] [address] [place] [address], [place] [address] Feb, [facility] [address] [id number] [address] [place] [address], [place] [address] Feb, [facility] [address] [id number] [address] [place] [address], [place] [address] 17 Feb, 2010 [facility] [address] [id number] [address] [place] [address], [place] [address] 16 Feb, 2010 [facility] [address] [id number] [address] [place] [address], [place] [address] Feb, [facility] [address] [id number] [address] [place] [address], [place] [address] Feb, [facility] [address] [id number] [address] [place] [address], [place] [address] Feb, [facility] [address] [id number] [address] [place] [address], [place] [address] Jan, [facility] [address] [id number] [address] [place] [address], [place] [address] Jan, [facility] [address] [id number] [address] [place] [address], [place] [address] Jan, [facility] [address] [id number] [address] [place] [address], [place] [address] Jan, [facility] [address] [id number] [address] [place] [address], [place] [address] Mar, [facility] [address] [id number] [address] [place] [address], [place] [address] Mar, [facility] [address] [id number] [address] [place] [address], [place] [address] Mar, [facility] [address] [id number] [address] [place] [address] Mar, [facility] [address] [id number] [address] [place] [address] 14 Mar, 2009 [facility] [address] [id number] [address] [place] [address] Mar, [facility] [address] [id number] [address] [place] [address] Feb, [facility] [address] [id number] [address] [place] [address] Feb, [facility] [address] [id number] [address] [place] [address] Jan, [facility] [address] [id number] [address] [place] [address] Sep, [facility] [address] [id number] [address] [place] [address] May, IMMUNIZATIONS No Known Immunizations SOCIAL HISTORY [...] Surgical History Left ear surgery Hospitalization History [facility] [place]- Spontane ous Pneumothorax Hospitalization History [facility]- Colon resection Hospitalization History [facility] - diarrhea/ couldnt urin ate nov 2017 Hospitalization History pain /hip to foot right side 10/16/19 19
--- OUTSIDE RECORDS SUMMARY | 2019-08-28 09:33 | XMS REPORT ---
Author Author Dixon Lundberg Doctor Organization [facility] Address Unknown Phone Unavailable Care Team Providers Care Head Transfer Clerk Name Role Phone Migration, Doctor Unavailable Unavailable PROBLEMS Type Condition ICD9-CM Code EOU39-YU Code Onset Dates Condition S tatus SNOMED Code Problem Insomnia G47.00 Active 659715094 Problem Anxiety F41.9 Active 10619896 Problem HTN (hypertension) I10 Active 3 7230303 Problem Hyperlipidemia E78.5 Active 57194 004 Problem Thoracic back pain, unspecif ied back pain laterality, unspecified chronicity M54.6 Active 563943801 Problem Vitamin D deficiency E55.9 Active 71584895 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 90389780 Problem Chronic pain G89.29 Active 3723499 1 Problem Schizophrenia, unspecified type F20.9 Active 65534568 Problem Constipation K59.00 Active 9104806 8 Problem Environmental allergies Z91.09 Active 602925572 Problem Primary insomnia F51.01 Active 397 2004 Problem Chronic kidney disease, stage III (moderate) N18.3 Active 536428814 Problem Vision loss H54.7 Active 90124470 1 ALLERGIES No Information ENCOUNTERS Encounter Location Date Diagnosis [place] [id number] [place] [address] Dec, Thoracic back pain, unspecif ied back pain laterality, unspecified chronicity M54.6 [place] [address] [place] [id number] [place] [phone] Dec, Thoracic back pain, unspecif ied back pain laterality, unspecified chronicity M54.6 [place] [address] [place] [id number] [address] [place] [address] Nov, Thoracic back pain, unspecif ied back pain laterality, unspecified chronicity M54.6 [place] [address] [place] [id number] [address] [place] [address] Nov, Anxiety F41.9 and Thoracic b ack pain, unspecified back pain laterality, unspecified chronicity M54.6 [facility] [address] [id number] [address] [place] [address] Nov, [facility] [address] [id number] [address] [place] [phone] Nov, [facility] [address] [id number] [address] [place] [address] Nov, [facility] [address] [id number] [address] [place] [phone] Oct, Thoracic back pain, unspecif ied back pain laterality, unspecified chronicity M54.6 [facility] [address] [id number] [address] [place] [phone] Oct, Anxiety F41.9 and Thoracic b ack pain, unspecified back pain laterality, unspecified chronicity M54.6 [facility] [address] [id number] [address] [place] [phone] Oct, Schizophrenia, unspecified t ype F20.9 and Acute kidney injury N17.9 [facility] [address] [id number] [address] [place] [phone] Oct, [facility] [address] [id number] [address] [place] [phone] Oct, [facility] [address] [id number] [address] [place] [phone] Oct, Thoracic back pain, unspecif ied back pain laterality, unspecified chronicity M54.6 [facility] [address] [id number] [address] [place] [phone] Oct, [facility] [address] [id number] [address] [place] [address] Oct, [facility] [address] [id number] [address] [place] [address] Sep, Anxiety F41.9 [facility] [address] [id number] [address] [place] [phone] Sep, [facility] [address] [id number] [address] [place] [address] Sep, Thoracic back pain, unspecif ied back pain laterality, unspecified chronicity M54.6 [facility] [address] [id number] [address] [place] [id number] Sep, [facility] [address] [id number] [address] [place] [phone] Sep, [facility] [address] [id number] [address] [place] [phone] Sep, [facility] [address] [id number] [address] [place] [phone] Sep, [facility] [address] [id number] [address] [place] [address] Sep, [facility] [address] [id number] [address] [place] [address] Sep, [facility] [address] [id number] [address] [place] [address] Sep, Chronic pain G89.29 ; Chroni c kidney disease, stage III (moderate) N18.3 ; Hyperlipidemia E78.5 and Insomnia G47.00 [facility] [address] [id number] [address] [place] [address] Sep, Thoracic back pain, unspecif ied back pain laterality, unspecified chronicity M54.6 [facility] [address] [id number] [address] [place] [address] August, Anxiety F41.9 [facility] [address] [facility] [id number] [address] [place] [address] August, Thoracic back pain, unspecif ied back pain laterality, unspecified chronicity M54.6 and Anxiety F41.9 [facility] [address] [id number] [address] [place] [address] August, 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 [facility] [address] [id number] [address] [place] [address] August, 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 [facility] [address] [id number] [address] [place] [phone] August, [facility] [address] [id number] [address] [place] [address] August, [facility] [address] [id number] [address] [place] [address] August, Thoracic back pain, unspecif ied back pain laterality, unspecified chronicity M54.6 [facility] [address] [id number] [address] [place] [phone] August, [facility] [address] [id number] [address] [place] [address] August, Anxiety F41.9 and Thoracic b ack pain, unspecified back pain laterality, unspecified chronicity M54.6 [facility] [address] [id number] [address] [place] [address] Jul, [facility] [address] [id number] [address] [place] [address] Jul, Thoracic back pain, unspecif ied back pain laterality, unspecified chronicity M54.6 [facility] [address] [id number] [address] [place] [address] Jun, Anxiety F41.9 and Thoracic b ack pain, unspecified back pain laterality, unspecified chronicity M54.6 [facility] [address] [id number] [address] [place] [address] Jun, Anxiety F41.9 and Thoracic b ack pain, unspecified back pain laterality, unspecified chronicity M54.6 [facility] [address] [id number] [address] [place] [address] Jun, Thoracic back pain, unspecif ied back pain laterality, unspecified chronicity M54.6 [facility] [address] [id number] [address] [place] [address] Jun, Anxiety F41.9 and Thoracic b ack pain, unspecified back pain laterality, unspecified chronicity M54.6 [facility] [address] [facility] [id number] [address] [place] [phone] May, [facility] [address] [id number] [address] [place] [address] May, [facility] [address] [facility] [id number] [address] [place] [address] May, [facility] [address] [facility] [id number] [address] [place] [address] May, Anxiety F41.9 and Encounter for medication monitoring Z51.81 [place] [address] [facility] [id number] [address] [place] [address] May, Anxiety F41.9 and Thoracic b ack pain, unspecified back pain laterality, unspecified chronicity M54.6 [place] [address] [facility] [id number] [address] [place] [address] Apr, Hyperlipidemia 272.4 [place] [address] [facility] [id number] [address] [place] [address] Apr, Chronic pain G89.29 ; Anxiet y F41.9 ; Cervical radiculopathy M54.12 and Vision loss H54.7 [facility] [address] [facility] [id number] [address] [place] [address] Apr, [facility] [address] [facility] [id number] [address] [place] [phone] Apr, Anxiety F41.9 and Thoracic b ack pain, unspecified back pain laterality, unspecified chronicity M54.6 [facility] [address] [facility] [id number] [address] [place] [address] Mar, [facility] [address] [id number] [address] [place] [address] Mar, Anxiety F41.9 and Thoracic b ack pain, unspecified back pain laterality, unspecified chronicity M54.6 [facility] [address] [id number] [address] [place] [phone] 14 Feb, 2018 Anxiety F41.9 and Thoracic b ack pain, unspecified back pain laterality, unspecified chronicity M54.6 [facility] [address] [id number] [address] [place] [phone] 07 Feb, 2018 Thoracic back pain, unspecif ied back pain laterality, unspecified chronicity M54.6 [facility] [address] [id number] [address] [place] [phone] 29 Jan, 2018 [facility] [address] [id number] [address] [place] [phone] Jan, Anxiety F41.9 and Thoracic b ack pain, unspecified back pain laterality, unspecified chronicity M54.6 [facility] [address] [id number] [address] [place] [address] Dec, Diarrhea of presumed infecti ous origin R19.7 [facility] [address] [id number] [address] [place] [address] Dec, Diarrhea of presumed infecti ous origin R19.7 [facility] [address] [id number] [address] [place] [phone] 18 Dec, 2017 Thoracic back pain, unspecif ied back pain laterality, unspecified chronicity M54.6 [facility] [address] [id number] [address] [place] [phone] 17 Dec, 2017 [facility] [address] [id number] [address] [place] [address] 17 Dec, 2017 Anxiety F41.9 and Thoracic b ack pain, unspecified back pain laterality, unspecified chronicity M54.6 [place] [address] [facility] [id number] [address] [place] [address] Dec, Diarrhea of presumed infecti ous origin R19.7 [place] [address] [facility] [id number] [address] [place] [address] Dec, [place] [address] [facility] [id number] [address] [place] [address] Dec, Anxiety F41.9 and Thoracic b ack pain, unspecified back pain laterality, unspecified chronicity M54.6 [place] [address] [place] [id number] [place] [address] Dec, Anxiety F41.9 and Thoracic b ack pain, unspecified back pain laterality, unspecified chronicity M54.6 [facility] [address] [place] [id number] Dec, Diarrhea of presumed infectious origin R 19.7 ; Anxiety F41.9 ; Thoracic back pain, unspecified back pain laterality, unspecified chronicity M54.6 and HTN (hypertension) I10 [place] [address] [place] [id number] [place] [address] Dec, Anxiety F41.9 [facility] [address] [place] [id number] Dec, Anxiety F41.9 ; Diarrhea of presumed inf ectious origin R19.7 ; Generalized abdominal pain R10.84 and Localized edema R60.0 [place] [address] [facility] [id number] [address] [place] [address] Nov, [facility] [address] [place] [id number] Nov, Anxiety F41.9 ; Urinary retention R33.9 ; Diarrhea of presumed infectious origin R19.7 ; Weakness R53.1 ; Acute kidney failure, unspecified N17.9 ; Chronic kidney disease, stage III (moderate) N18.3 and Thoracic back pain, unspecified back pain laterality, unspecified chronicity M54.6 [place] [address] [place] [id number] [place] [address] Oct, Thoracic back pain, unspecif ied back pain laterality, unspecified chronicity M54.6 and Anxiety F41.9 [place] [address] [facility] [id number] [address] [place] [phone] Sep, Thoracic back pain, unspecif ied back pain laterality, unspecified chronicity M54.6 and Anxiety F41.9 [place] [address] [facility] [id number] [address] [place] [address] Sep, Thoracic back pain, unspecif ied back pain laterality, unspecified chronicity M54.6 ; Anxiety F41.9 and Encounter for medication monitoring Z51.81 [place] [address] [facility] [id number] [address] [place] [address] August, [place] [address] [place] [id number] [place] [address] August, Thoracic back pain, unspecif ied back pain laterality, unspecified chronicity M54.6 and Anxiety F41.9 [place] [address] [place] [id number] [place] [address] August, Hyperlipidemia E78.5 and HTN (hypertension) I10 [place] [address] [place] [id number] [place] [address] August, [place] [address] [place] [id number] [place] [address] August, Medicare welcome exam Z00.00 ; Chronic kidney failure N18.9 ; Anxiety F41.9 ; Chronic pain G89.29 ; Insomnia G47.00 ; Hyperlipidemia E78.5 ; HTN (hypertension) I10 and Thoracic back pain, unspecified back pain laterality, unspecified chronicity M54.6 [facility] [address] [facility] [id number] [address] [place] [address] Jul, [facility] [address] [facility] [id number] [address] [place] [address] Jul, [facility] [address] [id number] [address] [place] [phone] Jul, [place] [address] [id number] [address] [place] [address] Jul, Anxiety F41.9 [place] [address] [id number] [address] [place] [address] Jul, Thoracic back pain, unspecif ied back pain laterality, unspecified chronicity M54.6 and Anxiety F41.9 [place] [address] [id number] [address] [place] [address] Jun, Thoracic back pain, unspecif ied back pain laterality, unspecified chronicity M54.6 and Anxiety F41.9 [place] [address] [id number] [address] [place] [address] 12 May, 2017 Thoracic back pain, unspecif ied back pain laterality, unspecified chronicity M54.6 and Anxiety F41.9 [place] [address] [id number] [address] [place] [address] Apr, Thoracic back pain, unspecif ied back pain laterality, unspecified chronicity M54.6 and Anxiety F41.9 [place] [address] [id number] [address] [place] [address] Mar, [place] [address] [id number] [address] [place] [address] 14 Mar, 2017 Thoracic back pain, unspecif ied back pain laterality, unspecified chronicity M54.6 and Anxiety F41.9 [place] [address] [id number] [address] [place] [address] 14 Mar, 2017 Thoracic back pain, unspecif ied back pain laterality, unspecified chronicity M54.6 ; HTN (hypertension) I10 ; Hyperlipidemia E78.5 and Anxiety F41.9 [place] [address] [id number] [address] [place] [address] Feb, Thoracic back pain, unspecif ied back pain laterality, unspecified chronicity M54.6 and Anxiety F41.9 [facility] [address] [id number] [address] [place] [phone] Nov, [facility] [address] [facility] [id number] [address] [place] [address] Oct, [facility] [address] [facility] [id number] [address] [place] [address] Oct, Thoracic back pain, unspecif ied back pain laterality, unspecified chronicity M54.6 [facility] [address] [facility] [id number] [address] [place] [address] Oct, HTN (hypertension) I10 ; Con stipation K59.00 ; Hyperlipidemia E78.5 ; Thoracic back pain, unspecified back pain laterality, unspecified chronicity M54.6 ; Chronic pain G89.29 ; Anxiety F41.9 ; Chronic kidney failure N18.9 ; Environmental allergies Z91.09 ; Vitamin D deficiency E55.9 and Primary insomnia F51.01 [facility] [address] [facility] [id number] [address] [place] [address] Sep, Anxiety F41.9 [facility] [address] [facility] [id number] [address] [place] [address] Sep, [facility] [address] [facility] [id number] [address] [place] [address] August, Anxiety F41.9 [facility] [address] [facility] [id number] [address] [place] [address] August, [facility] [address] [facility] [id number] [address] [place] [id number] Jul, Anxiety F41.9 [facility] [address] [facility] [id number] [address] [place] [address] Jul, [facility] [address] [facility] [id number] [address] [place] [address] Jun, Anxiety F41.9 [facility] [address] [facility] [id number] [address] [place] [phone] Jun, [facility] [address] [id number] [address] [place] [phone] May, [facility] [address] [facility] [id number] [address] [place] [address] May, [facility] [address] [facility] [id number] [address] [place] [address] May, [facility] [address] [facility] [id number] [address] [place] [address] Apr, [facility] [address] [facility] [id number] [address] [place] [address] Apr, [facility] [address] [facility] [id number] [address] [place] [address] Apr, Anxiety F41.9 [facility] [address] [facility] [id number] [address] [place] [address] Apr, Anxiety F41.9 [facility] [address] [facility] [id number] [address] [place] [address] Apr, [facility] [address] [facility] [id number] [address] [place] [address] Mar, HTN (hypertension) I10 ; Phillip mor R25.1 ; Hypercholesterolemia E78.0 ; Constipation K59.00 ; Chronic pain G89.29 ; Hyperlipidemia E78.5 ; Insomnia G47.00 ; Anxiety F41.9 and Thoracic back pain, unspecified back pain laterality, unspecified chronicity M54.6 [facility] [address] [facility] [id number] [address] [place] [address] Mar, Tremor R25.1 ; HTN (hyperten stas) I10 ; Hypercholesterolemia E78.0 ; Constipation K59.00 ; Chronic pain G89.29 ; Hyperlipidemia E78.5 ; Insomnia G47.00 ; Anxiety F41.9 and Thoracic back pain, unspecified back pain laterality, unspecified chronicity M54.6 [facility] [address] [id number] [address] [place] [address], [place] [address] 07 Mar, 2016 [facility] [address] [id number] [address] [place] [address], [place] [address] Mar, [facility] [address] [id number] [address] [place] [address], [place] [address] Feb, [facility] [address] [id number] [address] [place] [address], [place] [address] Jan, [facility] [address] [id number] [address] [place] [address], [place] [address] Jan, [facility] [address] [id number] [address] [place] [address], [place] [address] 15 Dec, 2015 [facility] [address] [id number] [address] [place] [address], [place] [address] Nov, [facility] [address] [id number] [address] [place] [address], [place] [address] Nov, [facility] [address] [id number] [address] [place] [address], [place] [address] Oct, Anxiety F41.9 [facility] [address] [id number] [address] [place] [address], [place] [address] Oct, Chronic pain G89.29 [facility] [address] [id number] [address] [place] [address], [place] [address] Sep, [facility] [address] [id number] [address] [place] [address] Sep, [facility] [address] [id number] [address] [place] [address], [place] [address] Sep, [facility] [address] [id number] [address] [place] [address], [place] [address] Sep, [facility] [address] [id number] [address] [place] [address], [place] [address] 16 Sep, 2015 Chronic pain syndrome G89.4 [facility] [address] [id number] [address] [place] [id number] Sep, HTN (hypertension) I10 ; Chr onic pain G89.29 ; Hypercholesterolemia E78.0 ; Chronic kidney failure N18.9 ; Constipation, unspecified constipation type K59.00 ; Anxiety F41.9 and Thoracic back pain, unspecified back pain laterality, unspecified chronicity M54.6 [place] [address] [address] [place] [id number] [address] [place] [id number] August, Chronic pain syndrome G89.4 [place] [address] [id number] August, Chronic pain syndrome G89.4 [place] [address] [id number] Jul, Anxiety disorder, unspecifie d F41.9 and Chronic pain syndrome G89.4 [place] [address] [address] Jul, Insomnia, unspecified G47.00 and Chronic pain syndrome G89.4 [place] [address] [place] [id number] [address] [place] [id number] Jul, Allergic rhinitis J30.9 [place] [address] [address] [place] [id number] [address] [place] [id number] Jul, Constipation, unspecified K5 9.00 [place] [address] [place] [id number] [address] [place] [phone] Jul, [place] [address] [place] [id number] [address] [place] [phone] Jun, [place] [address] [id number] Jun, [place] [address] [place] [id number] [address] [place] [phone] Jun, [place] [address] [id number] Jun, [facility] [address] [facility] [id number] [address] [place] [phone] Jun, [facility] [address] [facility] [id number] [address] [place] [id number] Jun, [facility] [facility] [address] [facility] [id number] [address] [place] [address] May, [facility] [address] [facility] [id number] [address] [place] [address] May, [facility] [address] [facility] [id number] [address] [place] [address] May, Anxiety F41.9 ; Insomnia G47 .00 ; Hyperlipidemia E78.5 ; Chronic pain G89.29 ; HTN (hypertension) I10 ; Environmental allergies V15.09 and Constipation 564.00 [facility] [address] [facility] [id number] [address] [place] [address] Apr, [facility] [address] [facility] [id number] [address] [place] [address] Apr, [facility] [address] [facility] [id number] [address] [place] [address] Apr, [facility] [address] [facility] [id number] [address] [place] [address] Mar, [facility] [address] [facility] [id number] [address] [place] [address] Mar, [facility] [address] [facility] [id number] [address] [place] [address] Mar, [facility] [address] [facility] [id number] [address] [place] [address] Feb, [facility] [address] [facility] [id number] [address] [place] [address] Feb, [facility] [address] [facility] [id number] [address] [place] [address] Feb, [facility] [address] [place] [id number] [address] [place] [address] Jan, HTN (hypertension) I10 ; Con stipation K59.00 ; Chronic pain G89.29 ; Hyperlipidemia E78.5 ; Hypercholesterolemia E78.0 ; Insomnia G47.00 and Anxiety F41.[address] [address] Jan, [address] [address] Dec, [address] [address] Nov, [address] [address] Oct, Chronic kidney disease, unsp ecified 585.9 ; Chronic pain syndrome 338.4 ; Hyperlipidemia 272.4 and Essential hypertension 401.[address] [address] Oct, Chronic kidney disease 585.[address] [address] Oct, [address] [address] Oct, Chronic kidney disease, unsp ecified 585.9 ; Hypercalcemia 275.42 ; Hyperlipidemia 272.4 ; Essential hypertension 401.9 ; Chronic pain syndrome 338.4 ; Insomnia 780.52 ; Constipation 564.00 ; Environmental allergies V15.09 and Anxiety 300.[address] [address] Oct, Chronic kidney disease 585.[address] [address] Oct, [address] [address] Oct, Chronic kidney disease 585.9 and Hyperlipidemia 272.4 [facility] [address] [id number] [address] [place] [address], [place] [address] 10 Oct, 2014 [facility] [address] [id number] [address] [place] [address], [place] [address] 10 Oct, 2014 [facility] [address] [id number] [address] [place] [address], [place] [address] 18 Sep, 2014 [facility] [address] [id number] [address] [place] [address], [place] [address] 15 Sep, 2014 [facility] [address] [id number] [address] [place] [address], [place] [address] Sep, Chronic kidney disease 585.9 and Hyperlipidemia 272.4 [facility] [address] [id number] [address] [place] [address], [place] [address] Sep, [facility] [address] [id number] [address] [place] [address], [place] [address] August, [facility] [address] [id number] [address] [place] [address], [place] [address] August, [facility] [address] [id number] [address] [place] [address], [place] [address] 14 Jul, 2014 [facility] [address] [id number] [address] [place] [address], [place] [address] 13 Jul, 2014 [facility] [address] [id number] [address] [place] [address], [place] [address] 20 Jun, 2014 [facility] [address] [id number] [address] [place] [address], [place] [address] 20 Jun, 2014 [facility] [address] [id number] [address] [place] [address], [place] [address] 16 Jun, 2014 [facility] [address] [id number] [address] [place] [address], [place] [address] 16 Jun, 2014 [facility] [address] [id number] [address] [place] [address], [place] [address] Jun, [facility] [address] [id number] [address] [place] [address], [place] [address] Jun, [facility] [address] [id number] [address] [place] [address], [place] [address] Jun, [facility] [address] [id number] [address] [place] [address], [place] [address] Jun, [facility] [address] [id number] [address] [place] [address], [place] [address] May, [facility] [address] [id number] [address] [place] [address], [place] [address] May, [facility] [address] [id number] [address] [place] [address], [place] [address] May, [facility] [address] [id number] [address] [place] [address], [place] [address] May, [facility] [address] [id number] [address] [place] [address], [place] [address] Apr, [facility] [address] [id number] [address] [place] [address], [place] [address] Apr, [facility] [address] [id number] [address] [place] [address], [place] [address] Apr, [facility] [address] [id number] [address] [place] [address], [place] [address] Apr, [facility] [address] [id number] [address] [place] [address] Apr, [facility] [address] [id number] [address] [place] [address], [place] [address] Apr, [facility] [address] [id number] [address] [place] [address], [place] [address] Apr, [facility] [address] [id number] [address] [place] [address], [place] [address] Apr, [facility] [address] [id number] [address] [place] [address], [place] [address] 16 Apr, 2014 [facility] [address] [id number] [address] [place] [address], [place] [address] Apr, [facility] [address] [id number] [address] [place] [address], [place] [address] Apr, [facility] [address] [id number] [address] [place] [address], [place] [address] Mar, [facility] [address] [id number] [address] [place] [address], [place] [address] Mar, [facility] [address] [id number] [address] [place] [address], [place] [address] Feb, [facility] [address] [id number] [address] [place] [address], [place] [address] Feb, [facility] [address] [id number] [address] [place] [address], [place] [address] Feb, [facility] [address] [id number] [address] [place] [address], [place] [address] Feb, [facility] [address] [id number] [address] [place] [address], [place] [address] Feb, [facility] [address] [id number] [address] [place] [address], [place] [address] Feb, [facility] [address] [id number] [address] [place] [address], [place] [address] Feb, [facility] [address] [id number] [address] [place] [address], [place] [address] Feb, [facility] [address] [id number] [address] [place] [address], [place] [address] Feb, [facility] [address] [id number] [address] [place] [address], [place] [address] Feb, [facility] [address] [id number] [address] [place] [address], [place] [address] Jan, [facility] [address] [id number] [address] [place] [address], [place] [address] Jan, [facility] [address] [id number] [address] [place] [address], [place] [address] Jan, [facility] [address] [id number] [address] [place] [address], [place] [address] Jan, [facility] [address] [id number] [address] [place] [address], [place] [address] Jan, [facility] [address] [id number] [address] [place] [address], [place] [address] 24 Jan, 2014 [facility] [address] [id number] [address] [place] [address], [place] [address] Jan, [facility] [address] [id number] [address] [place] [address], [place] [address] Jan, [facility] [address] [id number] [address] [place] [address], [place] [address] 16 Jan, 2014 [facility] [address] [id number] [address] [place] [address], [place] [address] Jan, [facility] [address] [id number] [address] [place] [address], [place] [address] 06 Jan, 2014 [facility] [address] [id number] [address] [place] [address], [place] [address] 26 Dec, 2013 [facility] [address] [id number] [address] [place] [address], [place] [address] 26 Dec, 2013 [facility] [address] [id number] [address] [place] [address], [place] [address] 19 Dec, 2013 [facility] [address] [id number] [address] [place] [address], [place] [address] 19 Dec, 2013 [facility] [address] [id number] [address] [place] [address], [place] [address] 18 Sep, 2013 [facility] [address] [id number] [address] [place] [address], [place] [address] Dec, [facility] [address] [id number] [address] [place] [address], [place] [address] Dec, [facility] [address] [id number] [address] [place] [address], [place] [address] Dec, [facility] [address] [id number] [address] [place] [address], [place] [address] Nov, [facility] [address] [id number] [address] [place] [address], [place] [address] Nov, [facility] [address] [id number] [address] [place] [address], [place] [address] Nov, [facility] [address] [id number] [address] [place] [address], [place] [address] Nov, [facility] [address] [id number] [address] [place] [address], [place] [address] Nov, [facility] [address] [id number] [address] [place] [address], [place] [address] Nov, [facility] [address] [id number] [address] [place] [address], [place] [address] Nov, [facility] [address] [id number] [address] [place] [address], [place] [address] Nov, [facility] [address] [id number] [address] [place] [address], [place] [address] Oct, [facility] [address] [id number] [address] [place] [address], [place] [address] Oct, [facility] [address] [id number] [address] [place] [address], [place] [address] Oct, [facility] [address] [id number] [address] [place] [address], [place] [address] Oct, [facility] [address] [id number] [address] [place] [address], [place] [address] Sep, [facility] [address] [id number] [facility] [place] [address] Sep, [facility] [address] [id number] [facility] [place] [address] Sep, [facility] [address] [id number] [facility] [place] [address] Sep, [facility] [address] [id number] [address] [place] [address], [place] [address] Sep, [facility] [address] [id number] [address] [place] [address], [place] [address] Sep, [facility] [address] [id number] [address] [place] [address], [place] [address] Sep, [facility] [address] [id number] [address] [place] [address], [place] [address] Sep, [facility] [address] [id number] [address] [place] [address], [place] [address] August, [facility] [address] [id number] [address] [place] [address], [place] [address] August, [facility] [address] [id number] [address] [place] [address], [place] [address] August, [facility] [address] [id number] [address] [place] [address], [place] [address] August, [facility] [address] [id number] [address] [place] [address], [place] [address] August, [facility] [address] [id number] [address] [place] [address], [place] [address] August, [facility] [address] [id number] [address] [place] [address], [place] [address] August, [facility] [address] [id number] [address] [place] [address], [place] [address] August, [facility] [address] [id number] [address] [place] [address], [place] [address] August, [facility] [address] [id number] [address] [place] [address], [place] [address] August, [facility] [address] [id number] [address] [place] [address], [place] [address] Jul, [facility] [address] [id number] [address] [place] [address], [place] [address] Jul, [facility] [address] [id number] [address] [place] [address], [place] [address] Jul, [facility] [address] [id number] [address] [place] [address], [place] [address] Jul, [facility] [address] [id number] [address] [place] [address], [place] [address] Jul, [facility] [address] [id number] [address] [place] [address], [place] [address] Jul, [facility] [address] [id number] [address] [place] [address], [place] [address] Jul, [facility] [address] [id number] [address] [place] [address], [place] [address] Jul, [facility] [address] [id number] [address] [place] [address], [place] [address] Jun, [facility] [address] [id number] [address] [place] [address], [place] [address] Jun, [facility] [address] [id number] [address] [place] [address], [place] [address] Jun, [facility] [address] [id number] [address] [place] [address], [place] [address] Jun, [facility] [address] [id number] [address] [place] [address], [place] [address] Jun, [facility] [address] [id number] [address] [place] [address], [place] [address] Jun, [facility] [address] [id number] [address] [place] [address], [place] [address] May, [facility] [address] [id number] [address] [place] [address], [place] [address] May, [facility] [address] [id number] [address] [place] [address], [place] [address] May, [facility] [address] [id number] [address] [place] [address], [place] [address] May, [facility] [address] [id number] [address] [place] [address], [place] [address] May, [facility] [address] [id number] [address] [place] [address], [place] [address] May, [facility] [address] [id number] [address] [place] [address], [place] [address] May, [facility] [address] [id number] [address] [place] [address], [place] [address] Apr, [facility] [address] [id number] [address] [place] [address], [place] [address] Apr, [facility] [address] [id number] [address] [place] [address], [place] [address] Apr, [facility] [address] [id number] [address] [place] [address], [place] [address] Apr, [facility] [address] [id number] [address] [place] [address], [place] [address] Apr, [facility] [address] [id number] [address] [place] [address], [place] [address] Apr, [facility] [address] [id number] [address] [place] [address], [place] [address] Mar, [facility] [address] [id number] [address] [place] [address], [place] [address] Mar, [facility] [address] [id number] [address] [place] [address], [place] [address] Mar, [facility] [address] [id number] [address] [place] [address], [place] [address] Mar, [facility] [address] [id number] [address] [place] [address], [place] [address] Mar, [facility] [address] [id number] [address] [place] [address], [place] [address] Mar, [facility] [address] [id number] [address] [place] [address], [place] [address] Mar, [facility] [address] [id number] [address] [place] [address], [place] [address] Mar, [facility] [address] [id number] [address] [place] [address], [place] [address] Mar, [facility] [address] [id number] [address] [place] [address], [place] [address] Mar, [facility] [address] [id number] [address] [place] [address], [place] [address] Feb, [facility] [address] [id number] [address] [place] [address], [place] [address] Feb, [facility] [address] [id number] [address] [place] [address], [place] [address] Feb, [facility] [address] [id number] [address] [place] [address], [place] [address] Feb, [facility] [address] [id number] [address] [place] [id number] 14 Feb, 2013 [facility] [address] [id number] [address] [place] [address], [place] [address] 14 Feb, 2013 [facility] [address] [id number] [address] [place] [address], [place] [address] Feb, [facility] [address] [id number] [address] [place] [id number] Feb, [facility] [address] [id number] [address] [place] [id number] 08 Feb, 2013 [facility] [address] [id number] [address] [place] [address], [place] [address] Feb, [facility] [address] [id number] [address] [place] [id number] Jan, [facility] [address] [id number] [address] [place] [address], [place] [address] Jan, [facility] [address] [id number] [address] [place] [address], [place] [address] Jan, [facility] [address] [id number] [address] [place] [address], [place] [address] Jan, [facility] [address] [id number] [address] [place] [address], [place] [address] Jan, [facility] [address] [id number] [address] [place] [address], [place] [address] Jan, [facility] [address] [id number] [address] [place] [address], [place] [address] Jan, [facility] [address] [id number] [address] [place] [id number] Jan, [facility] [address] [id number] [address] [place] [address], [place] [address] Jan, [facility] [address] [id number] [address] [place] [id number] 25 Dec, 2012 [facility] [address] [id number] [address] [place] [address], [place] [address] 23 Dec, 2012 [facility] [address] [id number] [address] [place] [address], [place] [address] 21 Dec, 2012 [facility] [address] [id number] [address] [place] [address], [place] [address] 13 Dec, 2012 [facility] [address] [id number] [address] [place] [address], [place] [address] Nov, [facility] [address] [id number] [address] [place] [address], [place] [address] Nov, [facility] [address] [id number] [address] [place] [address], [place] [address] Nov, [facility] [address] [id number] [address] [place] [address], [place] [address] Nov, [facility] [address] [id number] [address] [place] [address], [place] [address] Nov, [facility] [address] [id number] [address] [place] [address], [place] [address] Nov, [facility] [address] [id number] [address] [place] [address], [place] [address] Oct, [facility] [address] [id number] [address] [place] [address], [place] [address] Oct, [facility] [address] [id number] [address] [place] [address], [place] [address] Oct, [facility] [address] [id number] [address] [place] [address], [place] [address] Oct, [facility] [address] [id number] [address] [place] [address], [place] [address] Sep, [facility] [address] [id number] [address] [place] [address], [place] [address] Sep, [facility] [address] [id number] [address] [place] [address], [place] [address] Sep, [facility] [address] [id number] [address] [place] [address], [place] [address] Sep, [facility] [address] [id number] [address] [place] [address], [place] [address] Sep, [facility] [facility] [address] [id number] [address] [place] [address], [place] [address] August, [facility] [address] [id number] [address] [place] [address], [place] [address] August, [facility] [address] [id number] [address] [place] [address], [place] [address] Jul, [facility] [address] [id number] [address] [place] [address], [place] [address] Jul, [facility] [address] [id number] [address] [place] [address], [place] [address] 15 Jul, 2012 [facility] [address] [id number] [address] [place] [address], [place] [address] Jul, [facility] [address] [id number] [address] [place] [address], [place] [address] Jul, [facility] [address] [id number] [address] [place] [address], [place] [address] Jun, [facility] [address] [id number] [address] [place] [address], [place] [address] Jun, [facility] [address] [id number] [address] [place] [address], [place] [address] Jun, [facility] [address] [id number] [address] [place] [address], [place] [address] Jun, [facility] [address] [id number] [address] [place] [address], [place] [address] Jun, [facility] [address] [id number] [address] [place] [address], [place] [address] May, [facility] [address] [id number] [address] [place] [address], [place] [address] May, [facility] [address] [id number] [address] [place] [address], [place] [address] May, [facility] [address] [id number] [address] [place] [address], [place] [address] May, [facility] [address] [id number] [address] [place] [address], [place] [address] May, [facility] [address] [id number] [address] [place] [address], [place] [address] 14 May, 2012 [facility] [address] [id number] [address] [place] [address], [place] [address] 13 May, 2012 [facility] [address] [id number] [address] [place] [address], [place] [address] 08 May, 2012 [facility] [address] [id number] [address] [place] [address], [place] [address] 04 May, 2012 [facility] [address] [id number] [address] [place] [address], [place] [address] Apr, [facility] [address] [id number] [address] [place] [address], [place] [address] Apr, [facility] [address] [id number] [address] [place] [address], [place] [address] Apr, [facility] [address] [id number] [address] [place] [address], [place] [address] Apr, [facility] [address] [id number] [address] [place] [address], [place] [address] Apr, [facility] [address] [id number] [address] [place] [address], [place] [address] Mar, [facility] [address] [id number] [address] [place] [address], [place] [address] Mar, [facility] [address] [id number] [address] [place] [address], [place] [address] Mar, [facility] [address] [id number] [address] [place] [address], [place] [address] Mar, [facility] [address] [id number] [address] [place] [address], [place] [address] Mar, [facility] [address] [id number] [address] [place] [address], [place] [address] Mar, [facility] [address] [id number] [address] [place] [address], [place] [address] 17 Mar, 2012 [facility] [address] [id number] [address] [place] [address], [place] [address] 17 Mar, 2012 [facility] [address] [id number] [address] [place] [address], [place] [address] Mar, [facility] [address] [id number] [address] [place] [address], [place] [address] Mar, [facility] [address] [id number] [address] [place] [address], [place] [address] 30 Feb, 2012 [facility] [address] [id number] [address] [place] [address], [place] [address] 30 Feb, 2012 [facility] [address] [id number] [address] [place] [address], [place] [address] 29 Feb, 2012 [facility] [address] [id number] [address] [place] [address], [place] [address] Feb, [facility] [address] [id number] [address] [place] [address], [place] [address] Feb, [facility] [address] [id number] [address] [place] [address], [place] [address] Feb, [facility] [address] [id number] [address] [place] [address], [place] [address] Feb, [facility] [address] [id number] [address] [place] [address], [place] [address] Feb, [facility] [address] [id number] [address] [place] [address], [place] [address] 16 Feb, 2012 [facility] [address] [id number] [address] [place] [address], [place] [address] 16 Feb, 2012 [facility] [address] [id number] [address] [place] [address], [place] [address] 13 Feb, 2012 [facility] [address] [id number] [address] [place] [address], [place] [address] 13 Feb, 2012 [facility] [address] [id number] [address] [place] [address], [place] [address] 12 Feb, 2012 [facility] [address] [id number] [address] [place] [address], [place] [address] Feb, [facility] [address] [id number] [address] [place] [address], [place] [address] Feb, [facility] [address] [id number] [address] [place] [address], [place] [address] Feb, [facility] [address] [id number] [address] [place] [address], [place] [address] Feb, [facility] [address] [id number] [address] [place] [address], [place] [address] Feb, [facility] [address] [id number] [address] [place] [address], [place] [address] Jan, [facility] [address] [id number] [address] [place] [address], [place] [address] Jan, [facility] [address] [id number] [address] [place] [address], [place] [address] Jan, [facility] [address] [id number] [address] [place] [address], [place] [address] Jan, [facility] [address] [id number] [address] [place] [address] Jan, [facility] [address] [id number] [address] [place] [address], [place] [address] Jan, [facility] [address] [id number] [address] [place] [address] Jan, [facility] [address] [id number] [address] [place] [address] Jan, [facility] [address] [id number] [address] [place] [address] Jan, [facility] [address] [id number] [address] [place] [address] Jan, [facility] [address] [id number] [address] [place] [address], [place] [address] 24 Dec, 2011 [facility] [address] [id number] [address] [place] [address], [place] [address] Dec, [facility] [address] [id number] [address] [place] [address], [place] [address] Dec, [facility] [address] [id number] [address] [place] [address], [place] [address] Dec, [facility] [address] [id number] [address] [place] [address], [place] [address] Nov, [facility] [address] [id number] [address] [place] [address], [place] [address] Nov, [facility] [address] [id number] [address] [place] [address], [place] [address] Nov, [facility] [address] [id number] [address] [place] [address], [place] [address] Nov, [facility] [address] [id number] [address] [place] [address], [place] [address] Nov, [facility] [address] [id number] [address] [place] [address], [place] [address] Nov, [facility] [address] [id number] [address] [place] [address], [place] [address] Oct, [facility] [address] [id number] [address] [place] [address], [place] [address] Oct, [facility] [address] [id number] [address] [place] [address], [place] [address] Oct, [facility] [address] [id number] [address] [place] [address], [place] [address] Oct, [facility] [address] [id number] [address] [place] [address], [place] [address] Oct, [facility] [address] [id number] [address] [place] [address], [place] [address] 26 Sep, 2011 [facility] [address] [id number] [address] [place] [address], [place] [address] Sep, [facility] [address] [id number] [address] [place] [address], [place] [address] Sep, [facility] [address] [id number] [address] [place] [address], [place] [address] Sep, [facility] [address] [id number] [address] [place] [address], [place] [address] 05 Sep, 2011 [facility] [address] [id number] [address] [place] [address], [place] [address] August, [facility] [address] [id number] [address] [place] [address], [place] [address] August, [facility] [address] [id number] [address] [place] [address], [place] [address] August, [facility] [address] [id number] [address] [place] [address], [place] [address] August, [facility] [address] [id number] [address] [place] [address], [place] [address] Jul, [facility] [address] [id number] [address] [place] [address], [place] [address] 24 Jul, 2011 [facility] [address] [id number] [address] [place] [address], [place] [address] Jul, [facility] [address] [id number] [address] [place] [address], [place] [address] 18 Jul, 2011 [facility] [address] [id number] [address] [place] [address], [place] [address] 18 Jul, 2011 [facility] [address] [id number] [address] [place] [address], [place] [address] 12 Jul, 2011 [facility] [address] [id number] [address] [place] [address], [place] [address] 11 Jul, 2011 [facility] [address] [id number] [address] [place] [address], [place] [address] 10 Jul, 2011 [facility] [address] [id number] [address] [place] [address], [place] [address] Jul, [facility] [address] [id number] [address] [place] [address], [place] [address] 07 Jul, 2011 [facility] [address] [id number] [address] [place] [address], [place] [address] 05 Jul, 2011 [facility] [address] [id number] [address] [place] [address], [place] [address] Jul, [facility] [address] [id number] [address] [place] [address], [place] [address] Jul, [facility] [address] [id number] [address] [place] [address], [place] [address] Jul, [facility] [address] [id number] [address] [place] [address], [place] [address] Jun, [facility] [address] [id number] [address] [place] [address], [place] [address] Jun, [facility] [address] [id number] [address] [place] [address], [place] [address] Jun, [facility] [address] [id number] [address] [place] [address], [place] [address] Jun, [facility] [address] [id number] [address] [place] [address], [place] [address] May, [facility] [address] [id number] [address] [place] [address], [place] [address] May, [facility] [address] [id number] [address] [place] [address], [place] [address] May, [facility] [address] [id number] [address] [place] [address], [place] [address] Apr, [facility] [address] [id number] [address] [place] [address], [place] [address] Apr, [facility] [address] [id number] [address] [place] [address], [place] [address] 13 Apr, 2011 [facility] [address] [id number] [address] [place] [address], [place] [address] Apr, [facility] [address] [id number] [address] [place] [address], [place] [address] 09 Apr, 2011 [facility] [address] [id number] [address] [place] [address], [place] [address] Mar, [facility] [address] [id number] [address] [place] [address], [place] [address] Mar, [facility] [address] [id number] [address] [place] [address], [place] [address] Mar, [facility] [address] [id number] [address] [place] [address], [place] [address] Mar, [facility] [address] [id number] [address] [place] [address], [place] [address] 16 Mar, 2011 [facility] [address] [id number] [address] [place] [address], [place] [address] Mar, [facility] [address] [id number] [address] [place] [address], [place] [address] 05 Mar, 2011 [facility] [address] [id number] [address] [place] [address], [place] [address] Feb, [facility] [address] [id number] [address] [place] [address], [place] [address] Feb, [facility] [address] [id number] [address] [place] [address], [place] [address] Feb, [facility] [address] [id number] [address] [place] [address], [place] [address] Feb, [facility] [address] [id number] [address] [place] [address], [place] [address] 16 Feb, 2011 [facility] [address] [id number] [address] [place] [address], [place] [address] 14 Feb, 2011 [facility] [address] [id number] [address] [place] [address], [place] [address] 10 Feb, 2011 [facility] [address] [id number] [address] [place] [address], [place] [address] 31 Jan, 2011 [facility] [address] [id number] [address] [place] [address], [place] [address] 31 Jan, 2011 [facility] [address] [id number] [address] [place] [address], [place] [address] 31 Jan, 2011 [facility] [address] [id number] [address] [place] [address], [place] [address] 18 Jan, 2011 [facility] [address] [id number] [address] [place] [address], [place] [address] 17 Jan, 2011 [facility] [address] [id number] [address] [place] [address], [place] [address] 17 Jan, 2011 [facility] [address] [id number] [address] [place] [address], [place] [address] 17 Jun, 2010 [facility] [address] [id number] [address] [place] [address], [place] [address] 30 Mar, 2010 [facility] [address] [id number] [address] [place] [address], [place] [address] 20 Mar, 2010 [facility] [address] [id number] [address] [place] [address], [place] [address] 14 Mar, 2010 [facility] [address] [id number] [address] [place] [address], [place] [address] 14 Mar, 2010 [facility] [address] [id number] [address] [place] [address], [place] [address] 13 Mar, 2010 [facility] [address] [id number] [address] [place] [address], [place] [address] 07 Mar, 2010 [facility] [address] [id number] [address] [place] [address], [place] [address] 02 Mar, 2010 [facility] [address] [id number] [address] [place] [address], [place] [address] Mar, [facility] [address] [id number] [address] [place] [address], [place] [address] 30 Feb, 2010 [facility] [address] [id number] [address] [place] [address], [place] [address] Feb, [facility] [address] [id number] [address] [place] [address], [place] [address] Feb, [facility] [address] [id number] [address] [place] [address], [place] [address] 17 Feb, 2010 [facility] [address] [id number] [address] [place] [address], [place] [address] 16 Feb, 2010 [facility] [address] [id number] [address] [place] [address], [place] [address] Feb, [facility] [address] [id number] [address] [place] [address], [place] [address] Feb, [facility] [address] [id number] [address] [place] [address], [place] [address] Feb, [facility] [address] [id number] [address] [place] [address], [place] [address] Jan, [facility] [address] [id number] [address] [place] [address], [place] [address] Jan, [facility] [address] [id number] [address] [place] [address], [place] [address] Jan, [facility] [address] [id number] [address] [place] [address], [place] [address] Jan, [facility] [address] [id number] [address] [place] [address], [place] [address] Mar, [facility] [address] [id number] [address] [place] [address], [place] [address] Mar, [facility] [address] [id number] [address] [place] [address], [place] [address] Mar, [facility] [address] [id number] [address] [place] [id number] Mar, [facility] [address] [id number] [address] [place] [id number] 14 Mar, 2009 [facility] [address] [id number] [address] [place] [phone] Mar, [facility] [address] [id number] [address] [place] [phone] Feb, [facility] [address] [id number] [address] [place] [id number] Feb, [facility] [address] [id number] [address] [place] [phone] Jan, [facility] [address] [id number] [address] [place] [phone] Sep, [facility] [address] [id number] [address] [place] [id number] May, IMMUNIZATIONS No Known Immunizations SOCIAL HISTORY [...] History Left ear surgery Hospitalization History [facility] in [place]- Spontane ous Pneumothorax Hospitalization History [facility]- Colon resection Hospitalization History via [facility] - diarrhea/ couldnt urin ate nov 2017 Hospitalization History pain /hip to foot right side 10/16/19 19
--- OUTSIDE RECORDS SUMMARY | 2019-08-28 09:34 | XMS REPORT ---
Author Author Dixon Lundberg Doctor Organization [facility] Address Unknown Phone Unavailable Care Team Providers Care Food Technician Name Role Phone Migration, Doctor Unavailable Unavailable PROBLEMS Type Condition ICD9-CM Code CTX42-WS Code Onset Dates Condition S tatus SNOMED Code Problem Insomnia G47.00 Active 018070708 Problem Anxiety F41.9 Active 59911180 Problem HTN (hypertension) I10 Active 3 4529712 Problem Hyperlipidemia E78.5 Active 35689 004 Problem Thoracic back pain, unspecif ied back pain laterality, unspecified chronicity M54.6 Active 822150240 Problem Vitamin D deficiency E55.9 Active 15988495 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 82941945 Problem Chronic pain G89.29 Active 2266038 1 Problem Schizophrenia, unspecified type F20.9 Active 19739129 Problem Constipation K59.00 Active 6931618 8 Problem Environmental allergies Z91.09 Active 416461479 Problem Primary insomnia F51.01 Active 397 2004 Problem Chronic kidney disease, stage III (moderate) N18.3 Active 542673290 Problem Vision loss H54.7 Active 08853741 1 ALLERGIES No Information ENCOUNTERS Encounter Location Date Diagnosis [place] [id number] [place] [address] Dec, Thoracic back pain, unspecif ied back pain laterality, unspecified chronicity M54.6 [place] [address] [place] [id number] [place] [id number] Dec, Thoracic back pain, unspecif ied back pain laterality, unspecified chronicity M54.6 [place] [address] [place] [id number] [place] [id number] Nov, Thoracic back pain, unspecif ied back pain laterality, unspecified chronicity M54.6 [place] [address] [place] [id number] [place] [address] Nov, Anxiety F41.9 and Thoracic b ack pain, unspecified back pain laterality, unspecified chronicity M54.6 [facility] [address] [id number] [address] [place] [id number] Nov, [facility] [address] [id number] [address] [place] [id number] Nov, [facility] [address] [id number] [address] [place] [address] Nov, [facility] [address] [id number] [address] [place] [address] Oct, Thoracic back pain, unspecif ied back pain laterality, unspecified chronicity M54.6 [facility] [address] [id number] [address] [place] [id number] Oct, Anxiety F41.9 and Thoracic b ack pain, unspecified back pain laterality, unspecified chronicity M54.6 [facility] [address] [id number] [address] [place] [id number] Oct, Schizophrenia, unspecified t ype F20.9 and Acute kidney injury N17.9 [facility] [address] [id number] [address] [place] [address] Oct, [facility] [address] [id number] [address] [place] [id number] Oct, [facility] [address] [id number] [address] [place] [id number] Oct, Thoracic back pain, unspecif ied back pain laterality, unspecified chronicity M54.6 [facility] [address] [id number] [address] [place] [id number] Oct, [facility] [address] [id number] [address] [place] [id number] Oct, [facility] [address] [id number] [address] [place] [id number] Sep, Anxiety F41.9 [facility] [address] [id number] [address] [place] [id number] Sep, [facility] [address] [id number] [address] [place] [id number] Sep, Thoracic back pain, unspecif ied back pain laterality, unspecified chronicity M54.6 [facility] [address] [id number] [address] [place] [id number] Sep, [facility] [address] [id number] [address] [place] [id number] Sep, [facility] [address] [id number] [address] [place] [id number] Sep, [facility] [address] [id number] [address] [place] [id number] Sep, [facility] [address] [id number] [address] [place] [id number] Sep, [facility] [address] [id number] [address] [place] [id number] Sep, [facility] [address] [id number] [address] [place] [address] Sep, Chronic pain G89.29 ; Chroni c kidney disease, stage III (moderate) N18.3 ; Hyperlipidemia E78.5 and Insomnia G47.00 [facility] [address] [id number] [address] [place] [id number] Sep, Thoracic back pain, unspecif ied back pain laterality, unspecified chronicity M54.6 [facility] [address] [id number] [address] [place] [id number] August, Anxiety F41.9 [facility] [address] [facility] [id number] [address] [place] [address] August, Thoracic back pain, unspecif ied back pain laterality, unspecified chronicity M54.6 and Anxiety F41.9 [facility] [address] [id number] [address] [place] [id number] August, 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 [facility] [address] [id number] [address] [place] [id number] August, 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 [facility] [address] [id number] [address] [place] [id number] August, [facility] [address] [id number] [address] [place] [id number] August, [facility] [address] [id number] [address] [place] [address] August, Thoracic back pain, unspecif ied back pain laterality, unspecified chronicity M54.6 [facility] [address] [id number] [address] [place] [id number] August, [facility] [address] [id number] [address] [place] [address] August, Anxiety F41.9 and Thoracic b ack pain, unspecified back pain laterality, unspecified chronicity M54.6 [facility] [address] [id number] [address] [place] [address] Jul, [facility] [address] [id number] [address] [place] [id number] Jul, Thoracic back pain, unspecif ied back pain laterality, unspecified chronicity M54.6 [facility] [address] [id number] [address] [place] [id number] Jun, Anxiety F41.9 and Thoracic b ack pain, unspecified back pain laterality, unspecified chronicity M54.6 [facility] [address] [id number] [address] [place] [id number] Jun, Anxiety F41.9 and Thoracic b ack pain, unspecified back pain laterality, unspecified chronicity M54.6 [facility] [address] [id number] [address] [place] [id number] Jun, Thoracic back pain, unspecif ied back pain laterality, unspecified chronicity M54.6 [facility] [address] [id number] [address] [place] [address] Jun, Anxiety F41.9 and Thoracic b ack pain, unspecified back pain laterality, unspecified chronicity M54.6 [facility] [address] [facility] [id number] [address] [place] [address] May, [facility] [address] [id number] [address] [place] [id number] May, [facility] [address] [facility] [id number] [address] [place] [address] May, [facility] [address] [facility] [id number] [address] [place] [address] May, Anxiety F41.9 and Encounter for medication monitoring Z51.81 [place] [address] [facility] [id number] [address] [place] [address] May, Anxiety F41.9 and Thoracic b ack pain, unspecified back pain laterality, unspecified chronicity M54.6 [place] [address] [facility] [id number] [address] [place] [address] Apr, Hyperlipidemia 272.4 [place] [address] [facility] [id number] [address] [place] [address] Apr, Chronic pain G89.29 ; Anxiet y F41.9 ; Cervical radiculopathy M54.12 and Vision loss H54.7 [facility] [address] [facility] [id number] [address] [place] [address] Apr, [facility] [address] [facility] [id number] [address] [place] [address] Apr, Anxiety F41.9 and Thoracic b ack pain, unspecified back pain laterality, unspecified chronicity M54.6 [facility] [address] [facility] [id number] [address] [place] [address] Mar, [facility] [address] [id number] [address] [place] [address] Mar, Anxiety F41.9 and Thoracic b ack pain, unspecified back pain laterality, unspecified chronicity M54.6 [facility] [address] [id number] [address] [place] [id number] 14 Feb, 2018 Anxiety F41.9 and Thoracic b ack pain, unspecified back pain laterality, unspecified chronicity M54.6 [facility] [address] [id number] [address] [place] [id number] 07 Feb, 2018 Thoracic back pain, unspecif ied back pain laterality, unspecified chronicity M54.6 [facility] [address] [id number] [address] [place] [id number] 29 Jan, 2018 [facility] [address] [id number] [address] [place] [address] Jan, Anxiety F41.9 and Thoracic b ack pain, unspecified back pain laterality, unspecified chronicity M54.6 [facility] [address] [id number] [address] [place] [id number] Dec, Diarrhea of presumed infecti ous origin R19.7 [facility] [address] [id number] [address] [place] [id number] Dec, Diarrhea of presumed infecti ous origin R19.7 [facility] [address] [id number] [address] [place] [id number] 18 Dec, 2017 Thoracic back pain, unspecif ied back pain laterality, unspecified chronicity M54.6 [facility] [address] [id number] [address] [place] [address] 17 Dec, 2017 [facility] [address] [id number] [address] [place] [id number] 17 Dec, 2017 Anxiety F41.9 and Thoracic b ack pain, unspecified back pain laterality, unspecified chronicity M54.6 [place] [address] [facility] [id number] [address] [place] [address] Dec, Diarrhea of presumed infecti ous origin R19.7 [place] [address] [facility] [id number] [address] [place] [id number] Dec, [place] [address] [facility] [id number] [address] [place] [address] Dec, Anxiety F41.9 and Thoracic b ack pain, unspecified back pain laterality, unspecified chronicity M54.6 [place] [address] [place] [id number] [address] [place] [id number] Dec, Anxiety F41.9 and Thoracic b ack pain, unspecified back pain laterality, unspecified chronicity M54.6 [facility] [email or web address] [address] [place] [id number] Dec, Diarrhea of presumed infectious origin R 19.7 ; Anxiety F41.9 ; Thoracic back pain, unspecified back pain laterality, unspecified chronicity M54.6 and HTN (hypertension) I10 [place] [address] [place] [id number] [address] [place] [address] Dec, Anxiety F41.9 [email or web address] [address] [place] [id number] Dec, Anxiety F41.9 ; Diarrhea of presumed inf ectious origin R19.7 ; Generalized abdominal pain R10.84 and Localized edema R60.0 [place] [address] [facility] [id number] [address] [place] [address] Nov, [facility] [email or web address] [address] [place] [id number] Nov, Anxiety F41.9 ; Urinary retention R33.9 ; Diarrhea of presumed infectious origin R19.7 ; Weakness R53.1 ; Acute kidney failure, unspecified N17.9 ; Chronic kidney disease, stage III (moderate) N18.3 and Thoracic back pain, unspecified back pain laterality, unspecified chronicity M54.6 [place] [address] [place] [id number] [address] [place] [id number] Oct, Thoracic back pain, unspecif ied back pain laterality, unspecified chronicity M54.6 and Anxiety F41.9 [place] [address] [facility] [id number] [address] [place] [id number] Sep, Thoracic back pain, unspecif ied back pain laterality, unspecified chronicity M54.6 and Anxiety F41.9 [place] [address] [facility] [id number] [address] [place] [id number] Sep, Thoracic back pain, unspecif ied back pain laterality, unspecified chronicity M54.6 ; Anxiety F41.9 and Encounter for medication monitoring Z51.81 [place] [address] [facility] [id number] [address] [place] [address] August, [place] [address] [place] [id number] [address] [place] [address] August, Thoracic back pain, unspecif ied back pain laterality, unspecified chronicity M54.6 and Anxiety F41.9 [place] [address] [place] [id number] [address] [place] [address] August, Hyperlipidemia E78.5 and HTN (hypertension) I10 [place] [address] [place] [id number] [address] [place] [address] August, [place] [address] [place] [id number] [address] [place] [address] August, Medicare welcome exam Z00.00 ; Chronic kidney failure N18.9 ; Anxiety F41.9 ; Chronic pain G89.29 ; Insomnia G47.00 ; Hyperlipidemia E78.5 ; HTN (hypertension) I10 and Thoracic back pain, unspecified back pain laterality, unspecified chronicity M54.6 [facility] [address] [facility] [id number] [address] [place] [id number] Jul, [facility] [address] [facility] [id number] [address] [place] [address] Jul, [facility] [address] [id number] [address] [place] [address] Jul, [place] [address] [id number] [address] [place] [address] Jul, Anxiety F41.9 [place] [address] [id number] [address] [place] [id number] Jul, Thoracic back pain, unspecif ied back pain laterality, unspecified chronicity M54.6 and Anxiety F41.9 [place] [address] [id number] [address] [place] [address] Jun, Thoracic back pain, unspecif ied back pain laterality, unspecified chronicity M54.6 and Anxiety F41.9 [place] [address] [id number] [address] [place] [address] 12 May, 2017 Thoracic back pain, unspecif ied back pain laterality, unspecified chronicity M54.6 and Anxiety F41.9 [place] [address] [id number] [address] [place] [address] Apr, Thoracic back pain, unspecif ied back pain laterality, unspecified chronicity M54.6 and Anxiety F41.9 [place] [address] [id number] [address] [place] [address] Mar, [place] [address] [id number] [address] [place] [address] 14 Mar, 2017 Thoracic back pain, unspecif ied back pain laterality, unspecified chronicity M54.6 and Anxiety F41.9 [place] [address] [id number] [address] [place] [id number] 14 Mar, 2017 Thoracic back pain, unspecif ied back pain laterality, unspecified chronicity M54.6 ; HTN (hypertension) I10 ; Hyperlipidemia E78.5 and Anxiety F41.9 [place] [address] [id number] [address] [place] [address] Feb, Thoracic back pain, unspecif ied back pain laterality, unspecified chronicity M54.6 and Anxiety F41.9 [facility] [address] [id number] [address] [place] [id number] Nov, [facility] [address] [facility] [id number] [address] [place] [id number] Oct, [facility] [address] [facility] [id number] [address] [place] [address] Oct, Thoracic back pain, unspecif ied back pain laterality, unspecified chronicity M54.6 [facility] [address] [facility] [id number] [address] [place] [id number] Oct, HTN (hypertension) I10 ; Con stipation K59.00 ; Hyperlipidemia E78.5 ; Thoracic back pain, unspecified back pain laterality, unspecified chronicity M54.6 ; Chronic pain G89.29 ; Anxiety F41.9 ; Chronic kidney failure N18.9 ; Environmental allergies Z91.09 ; Vitamin D deficiency E55.9 and Primary insomnia F51.01 [facility] [address] [facility] [id number] [address] [place] [address] Sep, Anxiety F41.9 [facility] [address] [facility] [id number] [address] [place] [address] Sep, [facility] [address] [facility] [id number] [address] [place] [phone] August, Anxiety F41.9 [facility] [address] [facility] [id number] [address] [place] [address] August, [facility] [address] [facility] [id number] [address] [place] [id number] Jul, Anxiety F41.9 [facility] [address] [facility] [id number] [address] [place] [id number] Jul, [facility] [address] [facility] [id number] [address] [place] [id number] Jun, Anxiety F41.9 [facility] [address] [facility] [id number] [address] [place] [address] Jun, [facility] [address] [id number] [address] [place] [address] May, [facility] [address] [facility] [id number] [address] [place] [address] May, [facility] [address] [facility] [id number] [address] [place] [address] May, [facility] [address] [facility] [id number] [address] [place] [address] Apr, [facility] [address] [facility] [id number] [address] [place] [address] Apr, [facility] [address] [facility] [id number] [address] [place] [address] Apr, Anxiety F41.9 [facility] [address] [facility] [id number] [address] [place] [id number] Apr, Anxiety F41.9 [facility] [address] [facility] [id number] [address] [place] [address] Apr, [facility] [address] [facility] [id number] [address] [place] [address] Mar, HTN (hypertension) I10 ; Phillip mor R25.1 ; Hypercholesterolemia E78.0 ; Constipation K59.00 ; Chronic pain G89.29 ; Hyperlipidemia E78.5 ; Insomnia G47.00 ; Anxiety F41.9 and Thoracic back pain, unspecified back pain laterality, unspecified chronicity M54.6 [facility] [address] [facility] [id number] [address] [place] [address] Mar, Tremor R25.1 ; HTN (hyperten stas) I10 ; Hypercholesterolemia E78.0 ; Constipation K59.00 ; Chronic pain G89.29 ; Hyperlipidemia E78.5 ; Insomnia G47.00 ; Anxiety F41.9 and Thoracic back pain, unspecified back pain laterality, unspecified chronicity M54.6 [facility] [address] [id number] [address] [place] [address], [place] [address] 07 Mar, 2016 [facility] [address] [id number] [address] [place] [address], [place] [address] Mar, [facility] [address] [id number] [address] [place] [address], [place] [address] Feb, [facility] [address] [id number] [address] [place] [address], [place] [address] Jan, [facility] [address] [id number] [address] [place] [address], [place] [address] Jan, [facility] [address] [id number] [address] [place] [address], [place] [address] 15 Dec, 2015 [facility] [address] [id number] [address] [place] [address], [place] [address] Nov, [facility] [address] [id number] [address] [place] [address], [place] [address] Nov, [facility] [address] [id number] [address] [place] [address], [place] [address] Oct, Anxiety F41.9 [facility] [address] [id number] [address] [place] [address], [place] [address] Oct, Chronic pain G89.29 [facility] [address] [id number] [address] [place] [address], [place] [address] Sep, [facility] [address] [id number] [address] [place] [id number] Sep, [facility] [address] [id number] [address] [place] [address], [place] [address] Sep, [facility] [address] [id number] [address] [place] [address], [place] [address] Sep, [facility] [address] [id number] [address] [place] [address], [place] [address] 16 Sep, 2015 Chronic pain syndrome G89.4 [facility] [address] [id number] [address] [place] [id number] Sep, HTN (hypertension) I10 ; Chr onic pain G89.29 ; Hypercholesterolemia E78.0 ; Chronic kidney failure N18.9 ; Constipation, unspecified constipation type K59.00 ; Anxiety F41.9 and Thoracic back pain, unspecified back pain laterality, unspecified chronicity M54.6 [place] [address] [address] [place] [id number] [address] [place] [id number] August, Chronic pain syndrome G89.4 [place] [address] [id number] August, Chronic pain syndrome G89.4 [place] [address] [id number] Jul, Anxiety disorder, unspecifie d F41.9 and Chronic pain syndrome G89.4 [place] [address] [id number] Jul, Insomnia, unspecified G47.00 and Chronic pain syndrome G89.4 [place] [address] [place] [id number] [address] [place] [id number] Jul, Allergic rhinitis J30.9 [place] [address] [place] [id number] [address] [place] [id number] Jul, Constipation, unspecified K5 9.00 [place] [address] [place] [id number] [address] [place] [id number] Jul, [place] [address] [place] [id number] [address] [place] [id number] Jun, [place] [address] [id number] Jun, [place] [address] [place] [id number] [address] [place] [id number] Jun, [place] [address] [id number] Jun, [facility] [address] [facility] [id number] [address] [place] [id number] Jun, [facility] [address] [facility] [id number] [address] [place] [id number] Jun, [facility] [address] [facility] [id number] [address] [place] [id number] May, [facility] [address] [facility] [id number] [address] [place] [id number] May, [facility] [address] [facility] [id number] [address] [place] [id number] May, Anxiety F41.9 ; Insomnia G47 .00 ; Hyperlipidemia E78.5 ; Chronic pain G89.29 ; HTN (hypertension) I10 ; Environmental allergies V15.09 and Constipation 564.00 [facility] [address] [facility] [id number] [address] [place] [id number] Apr, [facility] [address] [facility] [id number] [address] [place] [address] Apr, [facility] [address] [facility] [id number] [address] [place] [address] Apr, [facility] [address] [facility] [id number] [address] [place] [address] Mar, [facility] [address] [facility] [id number] [address] [place] [address] Mar, [facility] [address] [facility] [id number] [address] [place] [address] Mar, [facility] [address] [facility] [id number] [address] [place] [address] Feb, [facility] [address] [facility] [id number] [address] [place] [address] Feb, [facility] [address] [facility] [id number] [address] [place] [address] Feb, [facility] [address] [place] [id number] [address] [place] [address] Jan, HTN (hypertension) I10 ; Con stipation K59.00 ; Chronic pain G89.29 ; Hyperlipidemia E78.5 ; Hypercholesterolemia E78.0 ; Insomnia G47.00 and Anxiety F41.[address] [address] Jan, [address] [address] Dec, [address] [address] Nov, [address] [address] Oct, Chronic kidney disease, unsp ecified 585.9 ; Chronic pain syndrome 338.4 ; Hyperlipidemia 272.4 and Essential hypertension 401.[address] [address] Oct, Chronic kidney disease 585.[address] [address] Oct, [address] [address] Oct, Chronic kidney disease, unsp ecified 585.9 ; Hypercalcemia 275.42 ; Hyperlipidemia 272.4 ; Essential hypertension 401.9 ; Chronic pain syndrome 338.4 ; Insomnia 780.52 ; Constipation 564.00 ; Environmental allergies V15.09 and Anxiety 300.[address] [address] Oct, Chronic kidney disease 585.[address] [address] Oct, [address] [address] Oct, Chronic kidney disease 585.9 and Hyperlipidemia 272.4 [facility] [address] [id number] [address] [place] [address], [place] [address] 10 Oct, 2014 [facility] [address] [id number] [address] [place] [address], [place] [address] 10 Oct, 2014 [facility] [address] [id number] [address] [place] [address], [place] [address] 18 Sep, 2014 [facility] [address] [id number] [address] [place] [address], [place] [address] 15 Sep, 2014 [facility] [address] [id number] [address] [place] [address], [place] [address] Sep, Chronic kidney disease 585.9 and Hyperlipidemia 272.4 [facility] [address] [id number] [address] [place] [address], [place] [address] Sep, [facility] [address] [id number] [address] [place] [address], [place] [address] August, [facility] [address] [id number] [address] [place] [address], [place] [address] August, [facility] [address] [id number] [address] [place] [address], [place] [address] 14 Jul, 2014 [facility] [address] [id number] [address] [place] [address], [place] [address] 13 Jul, 2014 [facility] [address] [id number] [address] [place] [address], [place] [address] 20 Jun, 2014 [facility] [address] [id number] [address] [place] [address], [place] [address] 20 Jun, 2014 [facility] [address] [id number] [address] [place] [address], [place] [address] 16 Jun, 2014 [facility] [address] [id number] [address] [place] [address], [place] [address] 16 Jun, 2014 [facility] [address] [id number] [address] [place] [address], [place] [address] Jun, [facility] [address] [id number] [address] [place] [address], [place] [address] Jun, [facility] [address] [id number] [address] [place] [address], [place] [address] Jun, [facility] [address] [id number] [address] [place] [address], [place] [address] Jun, [facility] [address] [id number] [address] [place] [address], [place] [address] May, [facility] [address] [id number] [address] [place] [address], [place] [address] May, [facility] [address] [id number] [address] [place] [address], [place] [address] May, [facility] [address] [id number] [address] [place] [address], [place] [address] May, [facility] [address] [id number] [address] [place] [address], [place] [address] Apr, [facility] [address] [id number] [address] [place] [address], [place] [address] Apr, [facility] [address] [id number] [address] [place] [address], [place] [address] Apr, [facility] [address] [id number] [address] [place] [address], [place] [address] Apr, [facility] [address] [id number] [address] [place] [address] Apr, [facility] [address] [id number] [address] [place] [address], [place] [address] Apr, [facility] [address] [id number] [address] [place] [address], [place] [address] Apr, [facility] [address] [id number] [address] [place] [address], [place] [address] Apr, [facility] [address] [id number] [address] [place] [address], [place] [address] 16 Apr, 2014 [facility] [address] [id number] [address] [place] [address], [place] [address] Apr, [facility] [address] [id number] [address] [place] [address], [place] [address] Apr, [facility] [address] [id number] [address] [place] [address], [place] [address] Mar, [facility] [address] [id number] [address] [place] [address], [place] [address] Mar, [facility] [address] [id number] [address] [place] [address], [place] [address] Feb, [facility] [address] [id number] [address] [place] [address], [place] [address] Feb, [facility] [address] [id number] [address] [place] [address], [place] [address] Feb, [facility] [address] [id number] [address] [place] [address], [place] [address] Feb, [facility] [address] [id number] [address] [place] [address], [place] [address] Feb, [facility] [address] [id number] [address] [place] [address], [place] [address] Feb, [facility] [address] [id number] [address] [place] [address], [place] [address] Feb, [facility] [address] [id number] [address] [place] [address], [place] [address] Feb, [facility] [address] [id number] [address] [place] [address], [place] [address] Feb, [facility] [address] [id number] [address] [place] [address], [place] [address] Feb, [facility] [address] [id number] [address] [place] [address], [place] [address] Jan, [facility] [address] [id number] [address] [place] [address], [place] [address] Jan, [facility] [address] [id number] [address] [place] [address], [place] [address] Jan, [facility] [address] [id number] [address] [place] [address], [place] [address] Jan, [facility] [address] [id number] [address] [place] [address], [place] [address] Jan, [facility] [address] [id number] [address] [place] [address], [place] [address] 24 Jan, 2014 [facility] [address] [id number] [address] [place] [address], [place] [address] Jan, [facility] [address] [id number] [address] [place] [address], [place] [address] Jan, [facility] [address] [id number] [address] [place] [address], [place] [address] 16 Jan, 2014 [facility] [address] [id number] [address] [place] [address], [place] [address] Jan, [facility] [address] [id number] [address] [place] [address], [place] [address] 06 Jan, 2014 [facility] [address] [id number] [address] [place] [address], [place] [address] 26 Dec, 2013 [facility] [address] [id number] [address] [place] [address], [place] [address] 26 Dec, 2013 [facility] [address] [id number] [address] [place] [address], [place] [address] 19 Dec, 2013 [facility] [address] [id number] [address] [place] [address], [place] [address] 19 Dec, 2013 [facility] [address] [id number] [address] [place] [address], [place] [address] 18 Sep, 2013 [facility] [address] [id number] [address] [place] [address], [place] [address] Dec, [facility] [address] [id number] [address] [place] [address], [place] [address] Dec, [facility] [address] [id number] [address] [place] [address], [place] [address] Dec, [facility] [address] [id number] [address] [place] [address], [place] [address] Nov, [facility] [address] [id number] [address] [place] [address], [place] [address] Nov, [facility] [address] [id number] [address] [place] [address], [place] [address] Nov, [facility] [address] [id number] [address] [place] [address], [place] [address] Nov, [facility] [address] [id number] [address] [place] [address], [place] [address] Nov, [facility] [address] [id number] [address] [place] [address], [place] [address] Nov, [facility] [address] [id number] [address] [place] [address], [place] [address] Nov, [facility] [address] [id number] [address] [place] [address], [place] [address] Nov, [facility] [address] [id number] [address] [place] [address], [place] [address] Oct, [facility] [address] [id number] [address] [place] [address], [place] [address] Oct, [facility] [address] [id number] [address] [place] [address], [place] [address] Oct, [facility] [address] [id number] [address] [place] [address], [place] [address] Oct, [facility] [address] [id number] [address] [place] [address], [place] [address] Sep, [facility] [address] [id number] [facility] [address] Sep, [facility] [address] [id number] [facility] [place] [address] Sep, [facility] [address] [id number] [facility] [place] [address] Sep, [facility] [address] [id number] [address] [place] [address], [place] [address] Sep, [facility] [address] [id number] [address] [place] [address], [place] [address] Sep, [facility] [address] [id number] [address] [place] [address], [place] [address] Sep, [facility] [address] [id number] [address] [place] [address], [place] [address] Sep, [facility] [address] [id number] [address] [place] [address], [place] [address] August, [facility] [address] [id number] [address] [place] [address], [place] [address] August, [facility] [address] [id number] [address] [place] [address], [place] [address] August, [facility] [address] [id number] [address] [place] [address], [place] [address] August, [facility] [address] [id number] [address] [place] [address], [place] [address] August, [facility] [address] [id number] [address] [place] [address], [place] [address] August, [facility] [address] [id number] [address] [place] [address], [place] [address] August, [facility] [address] [id number] [address] [place] [address], [place] [address] August, [facility] [address] [id number] [address] [place] [address], [place] [address] August, [facility] [address] [id number] [address] [place] [address], [place] [address] August, [facility] [address] [id number] [address] [place] [address], [place] [address] Jul, [facility] [address] [id number] [address] [place] [address], [place] [address] Jul, [facility] [address] [id number] [address] [place] [address], [place] [address] Jul, [facility] [address] [id number] [address] [place] [address], [place] [address] Jul, [facility] [address] [id number] [address] [place] [address], [place] [address] Jul, [facility] [address] [id number] [address] [place] [address], [place] [address] Jul, [facility] [address] [id number] [address] [place] [address], [place] [address] Jul, [facility] [address] [id number] [address] [place] [address], [place] [address] Jul, [facility] [address] [id number] [address] [place] [address], [place] [address] Jun, [facility] [address] [id number] [address] [place] [address], [place] [address] Jun, [facility] [address] [id number] [address] [place] [address], [place] [address] Jun, [facility] [address] [id number] [address] [place] [address], [place] [address] Jun, [facility] [address] [id number] [address] [place] [address], [place] [address] Jun, [facility] [address] [id number] [address] [place] [address], [place] [address] Jun, [facility] [address] [id number] [address] [place] [address], [place] [address] May, [facility] [address] [id number] [address] [place] [address], [place] [address] May, [facility] [address] [id number] [address] [place] [address], [place] [address] May, [facility] [address] [id number] [address] [place] [address], [place] [address] May, [facility] [address] [id number] [address] [place] [address], [place] [address] May, [facility] [address] [id number] [address] [place] [address], [place] [address] May, [facility] [address] [id number] [address] [place] [address], [place] [address] May, [facility] [address] [id number] [address] [place] [address], [place] [address] Apr, [facility] [address] [id number] [address] [place] [address], [place] [address] Apr, [facility] [address] [id number] [address] [place] [address], [place] [address] Apr, [facility] [address] [id number] [address] [place] [address], [place] [address] Apr, [facility] [address] [id number] [address] [place] [address], [place] [address] Apr, [facility] [address] [id number] [address] [place] [address], [place] [address] Apr, [facility] [address] [id number] [address] [place] [address], [place] [address] Mar, [facility] [address] [id number] [address] [place] [address], [place] [address] Mar, [facility] [address] [id number] [address] [place] [address], [place] [address] Mar, [facility] [address] [id number] [address] [place] [address], [place] [address] Mar, [facility] [address] [id number] [address] [place] [address], [place] [address] Mar, [facility] [address] [id number] [address] [place] [address], [place] [address] Mar, [facility] [address] [id number] [address] [place] [address], [place] [address] Mar, [facility] [address] [id number] [address] [place] [address], [place] [address] Mar, [facility] [address] [id number] [address] [place] [address], [place] [address] Mar, [facility] [address] [id number] [address] [place] [address], [place] [address] Mar, [facility] [address] [id number] [address] [place] [address], [place] [address] Feb, [facility] [address] [id number] [address] [place] [address], [place] [address] Feb, [facility] [address] [id number] [address] [place] [address], [place] [address] Feb, [facility] [address] [id number] [address] [place] [address], [place] [address] Feb, [facility] [address] [id number] [address] [place] [address] 14 Feb, 2013 [facility] [address] [id number] [address] [place] [address], [place] [address] 14 Feb, 2013 [facility] [address] [id number] [address] [place] [address], [place] [address] Feb, [facility] [address] [id number] [address] [place] [address] Feb, [facility] [address] [id number] [address] [place] [address] 08 Feb, 2013 [facility] [address] [id number] [address] [place] [address], [place] [address] Feb, [facility] [address] [id number] [address] [place] [id number] Jan, [facility] [address] [id number] [address] [place] [address], [place] [address] Jan, [facility] [address] [id number] [address] [place] [address], [place] [address] Jan, [facility] [address] [id number] [address] [place] [address], [place] [address] Jan, [facility] [address] [id number] [address] [place] [address], [place] [address] Jan, [facility] [address] [id number] [address] [place] [address], [place] [address] Jan, [facility] [address] [id number] [address] [place] [address], [place] [address] Jan, [facility] [address] [id number] [address] [place] [id number] Jan, [facility] [address] [id number] [address] [place] [address], [place] [address] Jan, [facility] [address] [id number] [address] [place] [id number] 25 Dec, 2012 [facility] [address] [id number] [address] [place] [address], [place] [address] 23 Dec, 2012 [facility] [address] [id number] [address] [place] [address], [place] [id number] 21 Dec, 2012 [facility] [address] [id number] [address] [place] [address], [place] [id number] 13 Dec, 2012 [facility] [address] [id number] [address] [place] [address], [place] [address] Nov, [facility] [address] [id number] [address] [place] [address], [place] [address] Nov, [facility] [address] [id number] [address] [place] [address], [place] [address] Nov, [facility] [address] [id number] [address] [place] [address], [place] [address] Nov, [facility] [address] [id number] [address] [place] [address], [place] [address] Nov, [facility] [address] [id number] [address] [place] [address], [place] [address] Nov, [facility] [address] [id number] [address] [place] [address], [place] [address] Oct, [facility] [address] [id number] [address] [place] [address], [place] [address] Oct, [facility] [address] [id number] [address] [place] [address], [place] [address] Oct, [facility] [address] [id number] [address] [place] [address], [place] [address] Oct, [facility] [address] [id number] [address] [place] [address], [place] [address] Sep, [facility] [address] [id number] [address] [place] [address], [place] [id number] Sep, [facility] [address] [id number] [address] [place] [address], [place] [address] Sep, [facility] [address] [id number] [address] [place] [address], [place] [address] Sep, [facility] [address] [id number] [address] [place] [address], [place] [address] Sep, [facility] [address] [id number] [address] [place] [address], [place] [address] August, [facility] [address] [id number] [address] [place] [address], [place] [id number] August, [facility] [address] [id number] [address] [place] [address], [place] [address] Jul, [facility] [address] [id number] [address] [place] [address], [place] [address] Jul, [facility] [address] [id number] [address] [place] [address], [place] [id number] 15 Jul, 2012 [facility] [address] [id number] [address] [place] [address], [place] [address] Jul, [facility] [address] [id number] [address] [place] [address], [place] [address] Jul, [facility] [address] [id number] [address] [place] [address], [place] [address] Jun, [facility] [address] [id number] [address] [place] [address], [place] [address] Jun, [facility] [address] [id number] [address] [place] [address], [place] [address] Jun, [facility] [address] [id number] [address] [place] [address], [place] [address] Jun, [facility] [address] [id number] [address] [place] [address], [place] [address] Jun, [facility] [address] [id number] [address] [place] [address], [place] [address] May, [facility] [address] [id number] [address] [place] [address], [place] [id number] May, [facility] [address] [id number] [address] [place] [address], [place] [address] May, [facility] [address] [id number] [address] [place] [address], [place] [address] May, [facility] [address] [id number] [address] [place] [address], [place] [address] May, [facility] [address] [id number] [address] [place] [address], [place] [address] 14 May, 2012 [facility] [facility] [address] [id number] [address] [place] [address], [place] [address] 13 May, 2012 [facility] [address] [id number] [address] [place] [address], [place] [id number] 08 May, 2012 [facility] [address] [id number] [address] [place] [address], [place] [address] 04 May, 2012 [facility] [address] [id number] [address] [place] [address], [place] [address] Apr, [facility] [address] [id number] [address] [place] [address], [place] [address] Apr, [facility] [address] [id number] [address] [place] [address], [place] [address] Apr, [facility] [address] [id number] [address] [place] [address], [place] [address] Apr, [facility] [address] [id number] [address] [place] [address], [place] [address] Apr, [facility] [address] [id number] [address] [place] [address], [place] [address] Mar, [facility] [address] [id number] [address] [place] [address], [place] [address] Mar, [facility] [address] [id number] [address] [place] [address], [place] [address] Mar, [facility] [address] [id number] [address] [place] [address], [place] [address] Mar, [facility] [address] [id number] [address] [place] [address], [place] [address] Mar, [facility] [address] [id number] [address] [place] [address], [place] [address] Mar, [facility] [address] [id number] [address] [place] [address], [place] [address] 17 Mar, 2012 [facility] [address] [id number] [address] [place] [address], [place] [address] 17 Mar, 2012 [facility] [address] [id number] [address] [place] [address], [place] [address] Mar, [facility] [address] [id number] [address] [place] [address], [place] [address] Mar, [facility] [address] [id number] [address] [place] [address], [place] [address] 30 Feb, 2012 [facility] [address] [id number] [address] [place] [address], [place] [address] 30 Feb, 2012 [facility] [address] [id number] [address] [place] [address], [place] [address] 29 Feb, 2012 [facility] [address] [id number] [address] [place] [address], [place] [address] Feb, [facility] [address] [id number] [address] [place] [address], [place] [address] Feb, [facility] [address] [id number] [address] [place] [address], [place] [address] Feb, [facility] [address] [id number] [address] [place] [address], [place] [address] Feb, [facility] [address] [id number] [address] [place] [address], [place] [address] Feb, [facility] [address] [id number] [address] [place] [address], [place] [address] 16 Feb, 2012 [facility] [address] [id number] [address] [place] [address], [place] [address] 16 Feb, 2012 [facility] [address] [id number] [address] [place] [address], [place] [address] 13 Feb, 2012 [facility] [address] [id number] [address] [place] [address], [place] [address] 13 Feb, 2012 [facility] [address] [id number] [address] [place] [address], [place] [address] 12 Feb, 2012 [facility] [address] [id number] [address] [place] [address], [place] [address] Feb, [facility] [address] [id number] [address] [place] [address], [place] [address] Feb, [facility] [address] [id number] [address] [place] [address], [place] [address] Feb, [facility] [address] [id number] [address] [place] [address], [place] [address] Feb, [facility] [address] [id number] [address] [place] [address], [place] [address] Feb, [facility] [address] [id number] [address] [place] [address], [place] [address] Jan, [facility] [address] [id number] [address] [place] [address], [place] [address] Jan, [facility] [address] [id number] [address] [place] [address], [place] [address] Jan, [facility] [address] [id number] [address] [place] [address], [place] [address] Jan, [facility] [address] [id number] [address] [place] [id number] Jan, [facility] [address] [id number] [address] [place] [address], [place] [address] Jan, [facility] [address] [id number] [address] [place] [address] Jan, [facility] [address] [id number] [address] [place] [address] Jan, [facility] [address] [id number] [address] [place] [address] Jan, [facility] [address] [id number] [address] [place] [address] Jan, [facility] [address] [id number] [address] [place] [address], [place] [address] 24 Dec, 2011 [facility] [address] [id number] [address] [place] [address], [place] [address] Dec, [facility] [address] [id number] [address] [place] [address], [place] [address] Dec, [facility] [address] [id number] [address] [place] [address], [place] [address] Dec, [facility] [address] [id number] [address] [place] [address], [place] [address] Nov, [facility] [address] [id number] [address] [place] [address], [place] [address] Nov, [facility] [address] [id number] [address] [place] [address], [place] [address] Nov, [facility] [address] [id number] [address] [place] [address], [place] [address] Nov, [facility] [address] [id number] [address] [place] [address], [place] [address] Nov, [facility] [address] [id number] [address] [place] [address], [place] [address] Nov, [facility] [address] [id number] [address] [place] [address], [place] [address] Oct, [facility] [address] [id number] [address] [place] [address], [place] [address] Oct, [facility] [address] [id number] [address] [place] [address], [place] [address] Oct, [facility] [address] [id number] [address] [place] [address], [place] [address] Oct, [facility] [address] [id number] [address] [place] [address], [place] [address] Oct, [facility] [address] [id number] [address] [place] [address], [place] [address] 26 Sep, 2011 [facility] [address] [id number] [address] [place] [address], [place] [address] Sep, [facility] [address] [id number] [address] [place] [address], [place] [address] Sep, [facility] [address] [id number] [address] [place] [address], [place] [address] Sep, [facility] [address] [id number] [address] [place] [address], [place] [address] 05 Sep, 2011 [facility] [address] [id number] [address] [place] [address], [place] [address] August, [facility] [address] [id number] [address] [place] [address], [place] [address] August, [facility] [address] [id number] [address] [place] [address], [place] [address] August, [facility] [address] [id number] [address] [place] [address], [place] [address] August, [facility] [address] [id number] [address] [place] [address], [place] [address] Jul, [facility] [address] [id number] [address] [place] [address], [place] [address] 24 Jul, 2011 [facility] [address] [id number] [address] [place] [address], [place] [address] Jul, [facility] [address] [id number] [address] [place] [address], [place] [address] 18 Jul, 2011 [facility] [address] [id number] [address] [place] [address], [place] [address] 18 Jul, 2011 [facility] [address] [id number] [address] [place] [address], [place] [address] 12 Jul, 2011 [facility] [address] [id number] [address] [place] [address], [place] [address] 11 Jul, 2011 [facility] [address] [id number] [address] [place] [address], [place] [address] 10 Jul, 2011 [facility] [address] [id number] [address] [place] [address], [place] [address] Jul, [facility] [address] [id number] [address] [place] [address], [place] [address] 07 Jul, 2011 [facility] [address] [id number] [address] [place] [address], [place] [address] 05 Jul, 2011 [facility] [address] [id number] [address] [place] [address], [place] [address] Jul, [facility] [address] [id number] [address] [place] [address], [place] [address] Jul, [facility] [address] [id number] [address] [place] [address], [place] [address] Jul, [facility] [address] [id number] [address] [place] [address], [place] [address] Jun, [facility] [address] [id number] [address] [place] [address], [place] [address] Jun, [facility] [address] [id number] [address] [place] [address], [place] [address] Jun, [facility] [address] [id number] [address] [place] [address], [place] [address] Jun, [facility] [address] [id number] [address] [place] [address], [place] [address] May, [facility] [address] [id number] [address] [place] [address], [place] [address] May, [facility] [address] [id number] [address] [place] [address], [place] [address] May, [facility] [address] [id number] [address] [place] [address], [place] [address] Apr, [facility] [address] [id number] [address] [place] [address], [place] [address] Apr, [facility] [address] [id number] [address] [place] [address], [place] [address] 13 Apr, 2011 [facility] [address] [id number] [address] [place] [address], [place] [address] Apr, [facility] [address] [id number] [address] [place] [address], [place] [address] 09 Apr, 2011 [facility] [address] [id number] [address] [place] [address], [place] [address] Mar, [facility] [address] [id number] [address] [place] [address], [place] [address] Mar, [facility] [address] [id number] [address] [place] [address], [place] [address] Mar, [facility] [address] [id number] [address] [place] [address], [place] [address] Mar, [facility] [address] [id number] [address] [place] [address], [place] [address] 16 Mar, 2011 [facility] [address] [id number] [address] [place] [address], [place] [address] Mar, [facility] [address] [id number] [address] [place] [address], [place] [address] 05 Mar, 2011 [facility] [address] [id number] [address] [place] [address], [place] [address] Feb, [facility] [address] [id number] [address] [place] [address], [place] [address] Feb, [facility] [address] [id number] [address] [place] [address], [place] [address] Feb, [facility] [address] [id number] [address] [place] [address], [place] [address] Feb, [facility] [address] [id number] [address] [place] [address], [place] [address] 16 Feb, 2011 [facility] [address] [id number] [address] [place] [address], [place] [address] 14 Feb, 2011 [facility] [address] [id number] [address] [place] [address], [place] [address] 10 Feb, 2011 [facility] [address] [id number] [address] [place] [address], [place] [address] 31 Jan, 2011 [facility] [address] [id number] [address] [place] [address], [place] [address] 31 Jan, 2011 [facility] [address] [id number] [address] [place] [address], [place] [address] 31 Jan, 2011 [facility] [address] [id number] [address] [place] [address], [place] [address] 18 Jan, 2011 [facility] [address] [id number] [address] [place] [address], [place] [address] 17 Jan, 2011 [facility] [address] [id number] [address] [place] [address], [place] [address] 17 Jan, 2011 [facility] [address] [id number] [address] [place] [address], [place] [address] 17 Jun, 2010 [facility] [address] [id number] [address] [place] [address], [place] [address] 30 Mar, 2010 [facility] [address] [id number] [address] [place] [address], [place] [address] 20 Mar, 2010 [facility] [address] [id number] [address] [place] [address], [place] [address] 14 Mar, 2010 [facility] [address] [id number] [address] [place] [address], [place] [address] 14 Mar, 2010 [facility] [address] [id number] [address] [place] [address], [place] [address] 13 Mar, 2010 [facility] [address] [id number] [address] [place] [address], [place] [address] 07 Mar, 2010 [facility] [address] [id number] [address] [place] [address], [place] [address] 02 Mar, 2010 [facility] [address] [id number] [address] [place] [address], [place] [address] Mar, [facility] [address] [id number] [address] [place] [address], [place] [id number] 30 Feb, 2010 [facility] [address] [id number] [address] [place] [address], [place] [address] Feb, [facility] [address] [id number] [address] [place] [address], [place] [address] Feb, [facility] [address] [id number] [address] [place] [address], [place] [address] 17 Feb, 2010 [facility] [address] [id number] [address] [place] [address], [place] [address] 16 Feb, 2010 [facility] [address] [id number] [address] [place] [address], [place] [address] Feb, [facility] [address] [id number] [address] [place] [address], [place] [address] Feb, [facility] [address] [id number] [address] [place] [address], [place] [address] Feb, [facility] [address] [id number] [address] [place] [address], [place] [address] Jan, [facility] [address] [id number] [address] [place] [address], [place] [address] Jan, [facility] [address] [id number] [address] [place] [address], [place] [address] Jan, [facility] [address] [id number] [address] [place] [address], [place] [address] Jan, [facility] [address] [id number] [address] [place] [address], [place] [address] Mar, [facility] [address] [id number] [address] [place] [address], [place] [address] Mar, [facility] [address] [id number] [address] [place] [address], [place] [address] Mar, [facility] [address] [id number] [address] [place] [id number] Mar, [facility] [address] [id number] [address] [place] [address] 14 Mar, 2009 [facility] [address] [id number] [address] [place] [address] Mar, [facility] [address] [id number] [address] [place] [address] Feb, [facility] [address] [id number] [address] [place] [address] Feb, [facility] [address] [id number] [address] [place] [id number] Jan, [facility] [address] [id number] [address] [place] [id number] Sep, [facility] [address] [id number] [address] [place] [id number] May, IMMUNIZATIONS No Known Immunizations SOCIAL HISTORY [...] Surgical History Left ear surgery Hospitalization History [facility] in [place]- Spontane ous Pneumothorax Hospitalization History [facility]- Colon resection Hospitalization History via [place] - diarrhea/ couldnt urin ate nov 2017 Hospitalization History pain /hip to foot right side 10/16/19 19
--- OUTSIDE RECORDS SUMMARY | 2019-08-28 09:35 | XMS REPORT | Continuity of Care Document ---
Author Organization Unknown Address Unknown Phone Unavailable Allergies Active Description Code Type Severity Reaction Onset Reported/Identified Relationship to Patient Clinical Status Yes aspirin [id number] Drug Allergy Unknown N/A 02/06/2008 Yes NSAIDS (Non-Steroidal Anti-Inflamma [id number] Drug Allergy Unknown N/A 02/06/2008 Yes Penicillins [id number] Drug Aller gy Unknown N/A 02/06/2008 Yes aspirin Drug Allergy N/A N/A 05/26/2008 Yes NSAIDS Drug Allergy N/A N/A 05/26/2008 Yes Penicillins Drug Allergy N/A N/A 05/26/2008 Yes aspirin Drug Allergy 05/26/2008 Yes NSAIDS Drug Allergy 05/26/2008 Yes Penicillins Drug Allergy 05/26/2008 Yes NON STEROIDOL ANTI INFLAMTORY NON STEROIDOL ANTI INFLAMTORY Mild N/A 09/04/2008 Yes niacin Drug Allergy N/A N/A 07/23/2010 Yes niacin Drug Allergy 07/23/[id number] mendez Allergy Unknown N/A 10/15/2018 Medications There is no data. Problems Date Dx Coded Attending Type Code Diagnosis Diagnosed By 10/28/2007 STEPHAN DE LEON DO 789.00 Colic Infantile 10/28/2007 STEPHAN DE LEON DO 789.00 Colic Infantile 10/28/2007 STEPHAN DE LEON DO 789.00 Colic Infantile 10/28/2007 STEPHAN DE LEON DO 789.00 Colic Infantile 10/28/2007 789.00 Col ic Infantile 10/28/2007 789.00 Col ic Infantile 10/28/2007 789.00 Col ic Infantile 10/28/2007 STEPHAN DE LEON DO 789.00 [...] STEPHAN K 380.4 Cerumen Impaction 12/18/2007 380.10 Caty tis Externa Unspecified 12/18/2007 380.4 Ceru men Impaction 12/18/2007 380.10 Caty tis Externa Unspecified 12/18/2007 380.4 Ceru men Impaction 12/18/2007 380.10 Caty tis Externa Unspecified 12/18/2007 380.4 Ceru men Impaction 12/18/2007 DE LEON DO, STEPHAN K [...] DO, STEPHAN K 356.9 POLYNEUROPATHY 06/08/2008 356.9 POLY NEUROPATHY 06/08/2008 356.9 POLY NEUROPATHY 06/08/2008 356.9 POLY NEUROPATHY 06/08/2008 DE LEON DO, STEPHAN K 356.9 [...] K 338.4 CHRONIC PAIN SYNDROME 08/11/2008 338.4 INSPECTOR AIR CARRIER VANI PAIN SYNDROME 08/11/2008 338.4 INSPECTOR AIR CARRIER VANI PAIN SYNDROME 08/11/2008 338.4 INSPECTOR AIR CARRIER VANI PAIN SYNDROME 08/11/2008 DE LEON DO, STEPHAN K 338.4 CHRONIC PAIN SYNDROME 08/11/2008 DE LEON DO, STEPHAN K 338.4 CHRONIC PAIN SYNDROME 08/11/2008 DE LEON DO, STPEHAN K 338.4 CHRONIC PAIN SYNDROME 08/11/2008 DE [...] K 372.30 Conjunctivitis 10/17/2008 DE LEON DO, STEHPAN K 372.30 Conjunctivitis 10/17/2008 DE LEON DO, STEPHAN K 372.30 Conjunctivitis 10/17/2008 372.30 Con junctivitis 10/17/2008 372.30 Con junctivitis 10/17/2008 372.30 Con junctivitis 10/17/2008 DE LEON DO, STEPHAN K 372.30 [...] 271.9 GLUCOSE INTOLERANCE 10/26/2008 DE LEON DO, SETPHAN K 271.9 GLUCOSE INTOLERANCE 10/26/2008 271.9 GLUC OSE INTOLERANCE 10/26/2008 271.9 GLUC OSE INTOLERANCE 10/26/2008 271.9 GLUC OSE INTOLERANCE 10/26/2008 DE LEON DO, STEPHAN K [...] K 272.4 DYSLIPIDEMIA 11/21/2008 DE LEON DO, STPEHAN K 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 11/21/2008 DE [...] K V58.69 taking high-risk medication 11/21/2008 257.2 HYPO GONADISM 11/21/2008 272.4 DYSL IPIDEMIA 11/21/2008 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.] K 691.8 Dermatitis Atopic Eczema 04/08/2009 691.8 Derm atitis Atopic Eczema 04/08/2009 691.8 Derm atitis Atopic Eczema 04/08/2009 691.8 Derm atitis Atopic Eczema 04/08/2009 DE LEON DO, STEPHAN [...] The Teeth And Supporting Structures 04/25/2009 525.9 Unsp ecified Disorder Of The Teeth And Supporting Structures 04/25/2009 525.9 Unsp ecified Disorder Of The Teeth And Supporting Structures 04/25/2009 525.9 Unsp ecified Disorder Of The Teeth And Supporting Structures [...] K 381.60 Eustachian Tube Block 09/12/2009 381.60 Eus tachian Tube Block 09/12/2009 381.60 Eus tachian Tube Block 09/12/2009 381.60 Eus tachian Tube Block 09/12/2009 DE LEON DO, STEPHAN [...] K 401.1 ESSENTIAL HYPERTENSION BENIGN 01/10/2010 401.1 ESSE NTIAL HYPERTENSION BENIGN 01/10/2010 401.1 ESSE NTIAL HYPERTENSION BENIGN 01/10/2010 401.1 ESSE NTIAL HYPERTENSION BENIGN 01/10/2010 DE LEON DO, STEPHAN [...] K 691.8 Dermatitis Atopic Eczema 03/07/2010 691.8 Derm atitis Atopic Eczema 03/07/2010 691.8 Derm atitis Atopic Eczema 03/07/2010 691.8 Derm atitis Atopic Eczema 03/07/2010 DE LEON DO, STEPHAN [...] STEPHAN K 593.9 RENAL INSUFFICIENCY 03/20/2010 593.9 AMEENA L INSUFFICIENCY 03/20/2010 593.9 AMEENA L INSUFFICIENCY 03/20/2010 593.9 AMEENA L INSUFFICIENCY 03/20/2010 DE LEON DO, STEPHAN K [...] STEPHAN K 785.9 CAROTID BRUIT 05/30/2010 785.2 MURM URS, UNDIAGNOSED CARDIAC 05/30/2010 785.9 JEFFREY TID BRUIT 05/30/2010 785.2 MURM URS, UNDIAGNOSED CARDIAC 05/30/2010 785.9 JEFFREY TID BRUIT 05/30/2010 785.2 MURM URS, UNDIAGNOSED CARDIAC 05/30/2010 785.9 JEFFREY TID BRUIT 05/30/2010 DE LEON DO, STEPHAN K [...] K 785.9 CAROTID BRUIT 11/29/2010 Ot 560.32 FEC AL IMPACTION 11/29/2010 Ot 564.00 UNS PEC CONSTIPATION 11/29/2010 Ot 593.9 AMEENA L URETERAL DIS NOS 04/29/2011 DE LEON DO, STEPHAN K 380.10 Otitis Externa Left 04/29/2011 DE LEON DO, STEPHAN K 380.10 Otitis Externa Left 04/29/2011 DE LEON DO, STEPHAN K 380.10 Otitis Externa Left 04/29/2011 DE LEON DO, STEPHAN K 380.10 Otitis Externa Left 04/29/2011 380.10 Caty tis Externa Left 04/29/2011 380.10 Acty tis Externa Left 04/29/2011 380.10 Caty tis Externa Left 04/29/2011 DE LEON DO, STEPHAN [...] K 380.10 Otitis Externa Left 04/29/2011 DE ELON DO, STEPHAN K 380.10 Otitis Externa Left [...] K 382.9 Unspecified Otitis Media 12/17/2011 380.4 CERU MEN IMPACTION 12/17/2011 382.9 Unsp ecified Otitis Media 12/17/2011 380.4 CERU MEN IMPACTION 12/17/2011 382.9 Unsp ecified Otitis Media 12/17/2011 380.4 Ceru men Impaction 12/17/2011 382.9 Unsp ecified Otitis Media 12/17/2011 DE LEON DO, STEPHAN [...] DO, STEPHAN K 380.4 Cerumen Impaction 12/17/2011 DEL EON DO, STEPHAN K 382.9 Unspecified Otitis Media 12/18/2011 DE LEON DO, STEPHAN K 275.42 HYPERCALCEMIA 12/18/2011 DE LEON DO, STEPHAN K 275.42 HYPERCALCEMIA 12/18/2011 DE LEON DO, STEPHAN K 275.42 HYPERCALCEMIA 12/18/2011 DE LEON DO, STEPHAN K 275.42 HYPERCALCEMIA 12/18/2011 275.42 HYP ERCALCEMIA 12/18/2011 275.42 HYP ERCALCEMIA 12/18/2011 275.42 HYP ERCALCEMIA 12/18/2011 DE LEON DO, STEPHAN K 275.42 [...] DO, STEPHAN K 388.70 EARACHE 02/28/2012 381.81 EUS TACHIAN TUBE DYSFUNCTION 02/28/2012 382.9 OTIT IS MEDIA 02/28/2012 388.70 EARACHE 02/28/2012 381.81 EUS TACHIAN TUBE DYSFUNCTION 02/28/2012 382.9 OTIT IS MEDIA 02/28/2012 388.70 EARACHE 02/28/2012 381.81 EUS TACHIAN TUBE DYSFUNCTION 02/28/2012 382.9 Otit is Media 02/28/2012 388.70 Earache 02/28/2012 DE LEON [...] PERFORATION OF TYMPANIC MEMBRANE UNSPECIFIED 03/06/2012 384.20 PER FORATION OF TYMPANIC MEMBRANE UNSPECIFIED 03/06/2012 384.20 PER FORATION OF TYMPANIC MEMBRANE UNSPECIFIED 03/06/2012 384.20 Per foration Of Tympanic Membrane Unspecified 03/06/2012 DE LEON [...] Perforation Of Tympanic Membrane Unspecified 06/03/2012 585.9 INSPECTOR AIR CARRIER VANI KIDNEY DISEASE, UNSPECIFIED 06/03/2012 DE LEON DO, STEPHAN K 585.9 CHRONIC KIDNEY DISEASE, UNSPECIFIED 06/03/2012 DE LEON DO, STPEHAN K 585.9 CHRONIC KIDNEY DISEASE, UNSPECIFIED 06/03/2012 [...] K 585.9 CHRONIC KIDNEY DISEASE, UNSPECIFIED 06/03/2012 DEL EON DO, STEPHAN K 585.9 CHRONIC KIDNEY DISEASE, [...] RENAL URETERAL DIS NOS 12/08/2017 Ot 593.9 AMEENA L URETERAL DIS NOS 12/08/2017 Ot 593.9 AMEENA L URETERAL DIS NOS 12/13/2017 TOMMY CASTILLO, AMIRAH Ot D63.1 ANEMIA IN CHRONIC KIDNEY DISEASE 12/13/2017 TOMMY DO, AMIRAH Ot E78.00 PURE HYPERCHOLESTEROLEMIA, UNSPECIFIED 12/13/2017 SANDERS DO, AMIRAH Ot F20.9 SCHIZOPHRENIA, UNSPECIFIED 12/13/2017 SANDERS DO, AMIRAH Ot F31.9 BIPOLAR DISORDER, UNSPECIFIED 12/13/2017 SANDERS DO, AMIRAH Ot F41.9 ANXIETY DISORDER, UNSPECIFIED 12/13/2017 SANDERS DO, AMIRAH Ot G47.9 SLEEP DISORDER, UNSPECIFIED 12/13/2017 TOMMY DO AMIRAH Ot G62.9 POLYNEUROPATHY, UNSPECIFIED 12/13/2017 SANDERS DO, AMIRAH Ot I12.9 HYPERTENSIVE CHRONIC KIDNEY DISEASE W ST 12/13/2017 TOMMY DO, AMIRAH Ot J34.9 UNSPECIFIED DISORDER OF NOSE AND NASAL S 12/13/2017 TOMMY DO AMIRAH Ot 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, STAGE 2 12/13/2017 TOMMY DO, AMIRAH Ot M19.91 PRIMARY OSTEOARTHRITIS, UNSPECIFIED SITE 12/13/2017 TOMMY DO AMIRAH Ot M54.9 DORSALGIA, UNSPECIFIED 12/13/2017 TOMMY CASTILLO AMIRAH Ot N17.9 ACUTE KIDNEY [...] COAGULATION PROFILE 12/13/2017 SANDERS DO, AMIRAH Ot S60.51 2A ABRASION OF LEFT HAND, INITIAL ENCOUNTER 12/13/2017 SANDERS DO, AMIRAH Ot S80.21 1A ABRASION, RIGHT KNEE, INITIAL ENCOUNTER 12/13/2017 SANDERS DO, AMIRAH Ot S80.21 2A ABRASION, LEFT KNEE, INITIAL ENCOUNTER 12/13/2017 SANDERS DO, AMIRAH Ot T14.8X XS OTHER INJURY OF UNSPECIFIED BODY REGION, 12/13/2017 SANDERS DO, AMIRAH Ot T79.6X XA TRAUMATIC ISCHEMIA OF MUSCLE, INITIAL EN 12/13/2017 SANDERS DO, AMIRAH Ot W19.XX XA UNSPECIFIED FALL, INITIAL ENCOUNTER 12/13/2017 SANDERS DO, AMIRAH Ot Y92.[address] OF OCCURRENCE OF 12/13/2017 SANDERS DO, AMIRAH Ot Z66 DO NOT RESUSCITATE 12/13/2017 SANDERS DO, AMIRAH Ot Z87.89 1 PERSONAL HISTORY OF NICOTINE DEPENDENCE 12/13/2017 SANDERS DO, AMIRAH Ot Z90.49 ACQUIRED ABSENCE OF OTHER SPECIFIED PART 12/14/2017 SANDERS DO, AMIRAH Ot D63.1 ANEMIA IN CHRONIC KIDNEY DISEASE 12/14/2017 SANDERS DO, AMIRAH Ot E78.00 PURE HYPERCHOLESTEROLEMIA, UNSPECIFIED 12/14/2017 SANDERS DO, AMIRAH Ot F20.9 SCHIZOPHRENIA, UNSPECIFIED 12/14/2017 SANDERS DO, AMIRAH Ot F31.9 BIPOLAR DISORDER, UNSPECIFIED 12/14/2017 SANDERS DO, AMIRAH Ot F41.9 ANXIETY DISORDER, UNSPECIFIED 12/14/2017 SANDERS DO, AMIRAH Ot G47.9 SLEEP DISORDER, UNSPECIFIED 12/14/2017 SANDERS DO, AMIRAH Ot G62.9 POLYNEUROPATHY, UNSPECIFIED 12/14/2017 SANDERS DO, AMIRAH Ot I12.9 HYPERTENSIVE CHRONIC KIDNEY DISEASE W ST 12/14/2017 TOMMY CASTILLO, AMIRAH Ot J34.9 UNSPECIFIED DISORDER OF NOSE AND NASAL S 12/14/2017 TOMMY CASTILLO AMIRAH Ot 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, STAGE 2 12/14/2017 SANDERS DO, AMIRAH Ot M19.91 PRIMARY OSTEOARTHRITIS, UNSPECIFIED SITE 12/14/2017 SANDERS DO AMIRAH Ot M54.9 DORSALGIA, UNSPECIFIED 12/14/2017 SANDERS DO, AMIRAH Ot N17.9 ACUTE KIDNEY FAILURE, UNSPECIFIED 12/14/2017 SANDERS DO, AMIRAH Ot N18.3 CHRONIC KIDNEY DISEASE, STAGE 3 (MODERAT 12/14/2017 SANDERS DO AMIRAH Ot N40.1 BENIGN PROSTATIC HYPERPLASIA WITH LOWER 12/14/2017 SANDERS DO, AMIRAH Ot R33.9 RETENTION OF URINE, UNSPECIFIED 12/14/2017 TOMMY CASTILLO AMIRAH Ot R41.0 DISORIENTATION, UNSPECIFIED 12/14/2017 SANDERS DO AMIRAH Ot R50.9 FEVER, UNSPECIFIED 12/14/2017 SANDERS DO, AMIRAH Ot R79.1 ABNORMAL COAGULATION PROFILE 12/14/2017 TOMMY CASTILLO AMIRAH Ot S60.51 2A ABRASION OF LEFT HAND, INITIAL ENCOUNTER 12/14/2017 TOMMY CASTILLO AMIRAH Ot S80.21 1A ABRASION, RIGHT KNEE, INITIAL ENCOUNTER 12/14/2017 TOMMY CASTILLO AMIRAH Ot S80.21 2A ABRASION, LEFT KNEE, INITIAL ENCOUNTER 12/14/2017 TOMMY CASTILLO AMIRAH Ot T14.8X XS OTHER INJURY OF UNSPECIFIED BODY REGION, 12/14/2017 TOMMY CASTILOL AMIRAH Ot T79.6X XA TRAUMATIC ISCHEMIA OF MUSCLE, INITIAL EN 12/14/2017 TOMMY CASTILLO AMIRAH Ot W19.XX XA UNSPECIFIED FALL, INITIAL ENCOUNTER 12/14/2017 TOMMY CASTILLO AMIRAH Ot Y92.[address] OF OCCURRENCE OF 12/14/2017 TOMMY CASTILLO AMIRAH Ot Z66 DO NOT RESUSCITATE 12/14/2017 TOMMY CASTILLO AMIRAH Ot Z87.89 1 PERSONAL HISTORY OF NICOTINE DEPENDENCE 12/14/2017 TOMMY CASTILLO AMIRAH Ot Z90.49 ACQUIRED ABSENCE [...] W ST 12/15/2017 SANDERS DO, AMIRAH Ot J34.9 UNSPECIFIED DISORDER OF NOSE AND NASAL S 12/15/2017 SANDERS DO, AMIRAH Ot 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, STAGE 2 12/15/2017 SANDERS DO, AMIRAH Ot M19.91 PRIMARY OSTEOARTHRITIS, UNSPECIFIED SITE 12/15/2017 SANDERS DO, AMIRAH Ot M54.9 DORSALGIA, UNSPECIFIED 12/15/2017 SANDERS DO, AMIRAH Ot N17.9 ACUTE KIDNEY FAILURE, UNSPECIFIED 12/15/2017 SANDERS DO, AMIRAH Ot N18.3 CHRONIC KIDNEY DISEASE, STAGE 3 (MODERAT 12/15/2017 SANDERS DO, AMIRAH Ot N40.1 BENIGN PROSTATIC HYPERPLASIA WITH LOWER 12/15/2017 SANDERS DO, AMIRAH Ot R33.9 RETENTION OF URINE, UNSPECIFIED 12/15/2017 SANDERS DO, AMIRAH Ot R41.0 DISORIENTATION, UNSPECIFIED 12/15/2017 SANDERS DO, AMIRAH Ot R50.9 FEVER, UNSPECIFIED 12/15/2017 SANDERS DO, AMIRAH Ot R79.1 ABNORMAL COAGULATION PROFILE 12/15/2017 TOMMY DO, AMIRAH Ot S60.51 2A ABRASION OF LEFT HAND, INITIAL ENCOUNTER 12/15/2017 SANDERS DO AMIRAH Ot S80.21 1A ABRASION, RIGHT KNEE, INITIAL ENCOUNTER 12/15/2017 SANDERS DO AMIRAH Ot S80.21 2A ABRASION, LEFT KNEE, INITIAL ENCOUNTER 12/15/2017 SANDERS DO, AMIRAH Ot T14.8X XS OTHER INJURY OF UNSPECIFIED BODY REGION, 12/15/2017 SANDERS DO, AMIRAH Ot T79.6X XA TRAUMATIC ISCHEMIA OF MUSCLE, INITIAL EN 12/15/2017 SANDERS DO, AMIRAH Ot W19.XX XA UNSPECIFIED FALL, INITIAL ENCOUNTER 12/15/2017 SANDERS DO, AMIRAH Ot Y92.[address] OF OCCURRENCE OF 12/15/2017 SANDERS DO, AMIRAH Ot Z66 DO NOT RESUSCITATE 12/15/2017 SANDERS DO, AMIRAH Ot Z87.89 1 PERSONAL HISTORY OF NICOTINE DEPENDENCE 12/15/2017 SANDERS [...] W ST 12/15/2017 SANDERS DO, AMIRAH Ot 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, STAGE 2 [...] N40.1 BENIGN PROSTATIC HYPERPLASIA WITH LOWER 12/15/2017 PHILIP SANDERS DOI Ot R33.9 RETENTION OF URINE, UNSPECIFIED 12/15/2017 TOMMY CASTILLO AMIRAH Ot R64 CACHEXIA 12/15/2017 PHILIP SANDERS DOI Ot R79.1 ABNORMAL COAGULATION PROFILE 12/15/2017 AMIRAH SANDERS DO Ot S60.51 2A ABRASION OF LEFT HAND, INITIAL ENCOUNTER 12/15/2017 TOMMY CASTILLO AMIRAH Ot S80.21 1A ABRASION, RIGHT KNEE, INITIAL ENCOUNTER 12/15/2017 PHILIP SANDERS DOI Ot S80.21 2A ABRASION, LEFT KNEE, INITIAL ENCOUNTER 12/15/2017 TOMMY CASTILLO AMIRAH Ot T14.8X XS OTHER INJURY OF UNSPECIFIED BODY REGION, 12/15/2017 TOMMY CASTILLO AMIRAH Ot T79.6X XA TRAUMATIC ISCHEMIA OF MUSCLE, INITIAL EN 12/15/2017 PHILIP SANDERS DOI Ot W19.XX XA UNSPECIFIED FALL, INITIAL ENCOUNTER 12/15/2017 PHILIP SANDERS DOI Ot Y92.[address] OF OCCURRENCE OF 12/15/2017 AMIRAH SANDERS DO Ot Z66 DO NOT RESUSCITATE 12/15/2017 AMIRAH SANDERS DO Ot Z87.89 1 PERSONAL HISTORY OF NICOTINE DEPENDENCE 12/15/2017 PHILIP SANDERS DOI Ot Z90.49 ACQUIRED ABSENCE OF OTHER SPECIFIED PART 05/19/2018 Ot 307.20 05/19/2018 Ot 728.85 05/19/2018 Ot 729.5 05/19/2018 Ot 564.00 05/19/2018 Ot 753.10 05/19/2018 Ot 789.1 05/19/2018 Ot 789.2 05/19/2018 Ot 790.29 05/19/2018 Ot 790.4 05/19/2018 Ot 257.2 TEST ICULAR HYPOFUNC NEC 05/19/2018 Ot 271.9 DIS CARBOHYDR METAB NOS 05/19/2018 Ot 272.4 HYPE RLIPIDEMIA NEC/NOS 05/19/2018 Ot 338.4 INSPECTOR AIR CARRIER VANI PAIN SYNDROME 05/19/2018 Ot 401.1 JING GN HYPERTENSION 05/19/2018 Ot 429.3 CARD IOMEGALY 05/19/2018 Ot 785.2 CARD IAC MURMURS NEC 05/19/2018 Ot 785.9 CARD IOVAS SYS SYMP NEC 05/19/2018 Ot V58.69 OTH MED,LT,CURRENT USE 05/19/2018 Ot 401.1 JING GN HYPERTENSION 05/19/2018 Ot 593.9 AMEENA L URETERAL DIS NOS 05/19/2018 Ot 753.10 CYS TIC KIDNEY DISEASE, UNSPECIFIED 05/19/2018 Ot 275.42 HYP ERCALCEMIA 05/19/2018 Ot 403.10 HYP TNSV CHR KID DIS, BENIGN, W CHR KD ST 05/19/2018 Ot 585.9 INSPECTOR AIR CARRIER VANI KIDNEY DISEASE, UNSPECIFIED 05/19/2018 RAVI LEZAMA, SONG A Ot 593.9 RENAL URETERAL DIS NOS 05/19/2018 Ot 593.9 AMEENA L URETERAL DIS NOS 05/19/2018 Ot 593.9 AMEENA L URETERAL DIS NOS 10/15/2018 DERECK LEZAMA, MEDINA Weir Ot E78.00 PURE HYPERCHOLESTEROLEMIA, UNSPECIFIED 10/15/2018 MEDINA HARDEN MD Ot F20.9 SCHIZOPHRENIA, UNSPECIFIED 10/15/2018 MEDINA HARDEN MD Ot F31.9 BIPOLAR DISORDER, UNSPECIFIED 10/15/2018 MEDINA HARDEN MD Ot F41.9 ANXIETY DISORDER, UNSPECIFIED 10/15/2018 MEDINA HARDEN MD Ot G62.9 POLYNEUROPATHY, UNSPECIFIED 10/15/2018 MEDINA HARDEN MD Ot I10 ESSENTIAL (PRIMARY) HYPERTENSION 10/15/2018 MEDINA HARDEN MD Ot M25.551 PAIN IN RIGHT HIP 10/15/2018 MEDINA HARDEN MD Ot N40.0 BENIGN PROSTATIC HYPERPLASIA WITHOUT LOW 10/15/2018 MEDINA HARDEN MD Ot R40.2142 COMA SCALE, EYES OPEN, SPONTANEOUS, EMR 10/15/2018 MEDINA HARDEN MD Ot R40.2252 COMA SCALE, BEST VERBAL RESPONSE, ORIENT 10/15/2018 MEDINA HARDEN MD Ot R40.2362 COMA SCALE, BEST MOTOR RESPONSE, OBEYS C 10/15/2018 MEDINA HARDEN MD Ot S37.009A UNSPECIFIED INJURY OF UNSPECIFIED KIDNEY 10/15/2018 DERECK LEZAMA, MEDINA Weir Ot W18.30XA FALL ON SAME LEVEL, UNSPECIFIED, INITIAL 10/15/2018 MEDINA HARDEN MD Ot Z79.82 HALF-WAY (CURRENT) USE OF ASPIRIN 10/15/2018 MEDINA HARDEN MD Ot Z87.891 PERSONAL HISTORY OF NICOTINE DEPENDENCE 10/15/2018 MEDINA HARDEN MD Ot Z88.0 ALLERGY STATUS TO PENICILLIN 10/15/2018 MEDINA HARDEN MD Ot Z88.6 ALLERGY STATUS TO ANALGESIC AGENT STATUS 10/16/2018 BERRY CAREY MD Ot E78.00 PURE HYPERCHOLESTEROLEMIA, UNSPECIFIED 10/16/2018 BERRY CAREY MD Ot F20 .9 SCHIZOPHRENIA, UNSPECIFIED 10/16/2018 BERRY CAREY MD Ot G62 .9 POLYNEUROPATHY, UNSPECIFIED 10/16/2018 BERRY CAREY MD Ot I10 ESSENTIAL (PRIMARY) HYPERTENSION 10/16/2018 BERRY CAREY MD Ot N17 .9 ACUTE KIDNEY FAILURE, UNSPECIFIED 10/16/2018 BERRY CAREY MD Ot R41.82 ALTERED MENTAL STATUS, UNSPECIFIED 10/16/2018 BERRY CAREY MD Ot Z79.82 HALF-WAY (CURRENT) USE OF ASPIRIN 10/16/2018 BERRY CAREY MD Ot Z79.899 OTHER PMO LEAD (CURRENT) DRUG THERAPY 10/16/2018 BERRY CAREY MD Ot Z87.891 PERSONAL HISTORY OF NICOTINE DEPENDENCE 10/16/2018 BERRY CAREY MD Ot E78.00 PURE HYPERCHOLESTEROLEMIA, UNSPECIFIED 10/16/2018 BERRY CAREY MD Ot F20 .9 SCHIZOPHRENIA, UNSPECIFIED 10/16/2018 BERRY CAREY MD Ot G62 .9 POLYNEUROPATHY, UNSPECIFIED 10/16/2018 BERRY CAREY MD Ot I10 ESSENTIAL (PRIMARY) HYPERTENSION 10/16/2018 BERRY CAREY MD Ot N17 .9 ACUTE KIDNEY FAILURE, UNSPECIFIED 10/16/2018 BERRY CAREY MD Ot R41.82 ALTERED MENTAL STATUS, UNSPECIFIED 10/16/2018 BERRY CAREY MD, Ot Z79.82 HALF-WAY (CURRENT) USE OF ASPIRIN 10/16/2018 BERRY CAREY MD, Ot Z79.899 OTHER HALF-WAY (CURRENT) DRUG THERAPY 10/16/2018 BERRY CAREY MD, Ot Z87.891 PERSONAL HISTORY OF NICOTINE DEPENDENCE 10/17/2018 MEDINA HARDEN MD Ot E78.00 PURE HYPERCHOLESTEROLEMIA, UNSPECIFIED 10/17/2018 MEDINA HARDEN MD Ot F20.9 SCHIZOPHRENIA, UNSPECIFIED 10/17/2018 MEDINA HARDEN MD Ot F31.9 BIPOLAR DISORDER, UNSPECIFIED 10/17/2018 MEDINA HARDEN MD Ot F41.9 ANXIETY DISORDER, UNSPECIFIED 10/17/2018 MEDINA HARDEN MD Ot G62.9 POLYNEUROPATHY, UNSPECIFIED 10/17/2018 MEDINA HARDEN MD Ot I10 ESSENTIAL (PRIMARY) HYPERTENSION 10/17/2018 MEDINA HARDEN MD Ot M25.551 PAIN IN RIGHT HIP 10/17/2018 MEDINA HARDEN MD Ot N40.0 BENIGN PROSTATIC HYPERPLASIA WITHOUT LOW 10/17/2018 MEDINA HARDEN MD Ot R40.2142 COMA SCALE, EYES OPEN, SPONTANEOUS, EMR 10/17/2018 MEDINA HARDEN MD Ot R40.2252 COMA SCALE, BEST VERBAL RESPONSE, ORIENT 10/17/2018 MEDINA HARDEN MD Ot R40.2362 COMA SCALE, BEST MOTOR RESPONSE, OBEYS C 10/17/2018 MEDINA HARDEN MD Ot S37.009A UNSPECIFIED INJURY OF UNSPECIFIED KIDNEY 10/17/2018 MEDINA HARDEN MD Ot W18.30XA FALL ON SAME LEVEL, UNSPECIFIED, INITIAL 10/17/2018 MEDINA HARDEN MD Ot Z79.82 HALF-WAY (CURRENT) USE OF ASPIRIN 10/17/2018 MEDINA HARDEN MD Ot Z87.891 PERSONAL HISTORY OF NICOTINE DEPENDENCE 10/17/2018 MEDINA HARDEN MD Ot Z88.0 ALLERGY STATUS TO PENICILLIN 10/17/2018 DERECK LEZAMA, MEDINA Weir Ot Z88.6 ALLERGY STATUS TO ANALGESIC AGENT STATUS Procedures Code Description Performed By Per formed On 38.93 VENO US CATHETERIZATION NEC 02/06/2008 45.75 OPEN AND OTHER LEFT HEMICOLECTOMY 02/06/2008 54.21 LAPA ROSCOPY 11/22/2010 OTOLA Walk er, Yelitza 02/19/2012 17128 ROUT INE VENIPUNCTURE 05/11/2012 17549 CMP 05/11/2012 [id number] GF R CALC (RESULT ONLY) 05/11/2012 62779 LIPI D PANEL 05/11/2012 79623 CALC IUM IONIZED 05/12/2012 71464 MAI MIN D 25-HYDROXY (D2,D3, TOTAL) 05/12/2012 45872 A1C (RML) 05/12/2012 5983930 CA LCIUM (RESULT ONLY) 05/12/2012 4236764 PT H INTACT BILLY (RESULT ONLY) 05/12/2012 22705 PTH (intact) 05/26/2012 NEPHR Mens ah, Barbie 06/09/2012 25920 US R ENAL ULTRASOUND, COMP 06/10/2012 93809 ROUT INE VENIPUNCTURE 06/17/2012 29684 LIVE R PANEL (LFT) 06/17/2012 0916640 GF R CALC (RESULT ONLY) 06/17/2012 90613 LIPI D PANEL 06/17/2012 64301 CBC 06/17/2012 88524 AMEENA L PROFILE 06/17/2012 23088 UA W / CULTURE IF INDICATED 07/27/2012 PRO/CRE UR INE PROTEIN TO CREATNINE RATIO 07/27/2012 49553 URIN E DRUG SCREEN (IN-HOUSE) 02/09/2013 68326 XRAY CHEST 2 VIEW 04/08/2013 64052 ROUT INE VENIPUNCTURE 08/20/2013 33844 CBC 08/20/2013 2391148 GF R CALC (RESULT ONLY) 08/20/2013 82023 CMP 08/20/2013 18377 LIPI D PANEL 08/20/2013 60128 ROUT INE VENIPUNCTURE 02/11/2014 76502 CMP 02/11/2014 0759369 GF R CALC (RESULT ONLY) 02/11/2014 54311 ROUT INE VENIPUNCTURE 08/02/2014 36648 A1C (IN-HOUSE) 08/02/2014 0113206 GF R CALC (RESULT ONLY) 08/02/2014 86316 CMP 08/02/2014 40874 LIPI D PANEL 08/02/2014 [id number] IN SPECTION OF BLADDER, ENDO 12/12/2017 Results Test Result Range CBC With Differential/Platelet - 6 09:32 WBC 8.3 x10E3/uL 3.4-10.8 RBC 4.27 x10E6/uL 4.14-5.80 Hemoglobin 12.5 g/dL 12.6-17.7 Hematocrit 36.9 % 37.5-51.0 MCV 86 fL 79-97 MCH 29.3 pg 26.6-33.0 MCHC 33.9 g/dL 31.5-35.7 RDW 15.8 % 12.3-15.4 Platelets 314 x10E3/uL 150-379 Neutrophils 74 % Lymphs 16 % Monocytes 8 % Eos 2 % Basos 0 % Neutrophils (Absolute) 6.1 x10E3/uL 1.4- 7.0 Lymphs (Absolute) 1.3 x10E3/uL 0.7-3.1 Monocytes(Absolute) 0.6 x10E3/uL 0.1-0.9 Eos (Absolute) 0.2 x10E3/uL 0.0-0.4 Baso (Absolute) 0.0 x10E3/uL 0.0-0.2 Immature Granulocytes 0 % Immature Grans (Abs) 0.0 x10E3/uL 0.0-0. 1 Comp. Metabolic Panel (14) - 04/10/16 09 :32 Glucose, Serum 84 mg/dL 65-99 BUN 21 mg/dL 8-27 Creatinine, Serum 1.72 mg/dL 0.76-1.27 eGFR If NonAfricn Am 41 mL/min/1.73 >59 eGFR If Africn Am 48 mL/min/1.73 >59 BUN/Creatinine Ratio 12 10-22 Sodium, Serum 142 mmol/L 134-144 Potassium, Serum 4.4 mmol/L 3.5-5.2 Chloride, Serum 102 mmol/L 96-106 Carbon Dioxide, Total 24 mmol/L 18-29 Calcium, Serum 9.3 mg/dL 8.6-10.2 Protein, Total, Serum 7.1 g/dL 6.0-8.5 Albumin, Serum 4.5 g/dL 3.6-4.8 Globulin, Total 2.6 g/dL 1.5-4.5 A/G Ratio 1.7 1.1-2.5 Bilirubin, Total <0.2 mg/dL 0.0-1.2 Alkaline Phosphatase, S 55 IU/L 39-117 AST (SGOT) 21 IU/L 0-40 ALT (SGPT) 17 IU/L 0-44 Lipid Panel - 04/10/16 09:32 Cholesterol, Total 142 mg/dL 100-199 Triglycerides 76 mg/dL 0-149 HDL Cholesterol 42 mg/dL >39 VLDL Cholesterol Christian 15 mg/dL 5-40 LDL Cholesterol Calc 85 mg/dL 0-99 CMP - 08/25/17 08:52 GLUCOSE 86 mg/dL 65-99 UREA NITROGEN (BUN) 17 mg/dL 7-25 CREATININE 1.42 mg/dL 0.70-1.25 eGFR NON-AFR. AFGHAN 51 mL/min/1.73m2 > OR = 60 eGFR 59 mL/min/1.73m2 > OR = 60 BUN/CREATININE RATIO 12 (calc) 6-22 SODIUM 139 mmol/L 135-146 POTASSIUM 4.9 mmol/L 3.5-5.3 CHLORIDE 102 mmol/L 98-110 CARBON DIOXIDE 28 mmol/L 20-31 CALCIUM 9.4 mg/dL 8.6-10.3 PROTEIN, TOTAL 6.9 g/dL 6.1-8.1 ALBUMIN 4.1 g/dL 3.6-5.1 GLOBULIN 2.8 g/dL (calc) 1.9-3.7 ALBUMIN/GLOBULIN RATIO 1.5 (calc) 1.0-2. 5 BILIRUBIN, TOTAL 0.3 mg/dL 0.2-1.2 ALKALINE PHOSPHATASE 60 U/L 40-115 AST 15 U/L 10-35 ALT 11 U/L 9-46 Bacterial blood culture - 12/08/17 06:50 Bacterial blood culture NG NRG Bacterial blood culture - 12/08/17 07:14 Bacterial blood culture NG NRG ABO+Rh group - 12/09/17 17:10 ABO+Rh group AP NRG TRANSFUSION REACTION BB TESTS - 12/09/17 17:10 TRANSFUSION RX BLOOD COMPONENT A POS FFP NRG [id number] NRG [id number] OK NRG [id number] NORMAL NRG Bacterial blood culture NOT INDICATED N RG Serum ragweed IgE antibody assay NO CHANGE [...] SCANNED TO EMR NRG Methicillin resistant Staphylococcus aur eus (MRSA) screening culture - 12/11/17 17:50 Methicillin resistant Staphylococcus aureus (MRSA) scr eening culture NEG NRG C DIFFICILE AG + TOXIN A/B. - 12/12/17 0 3:10 RESULTS NEGATIVE FOR ANTIGEN AND TOXIN A/B NRG [id number] - 12/12/17 03:10 Stool bacteria identification by culture - 12/12/17 03:10 NEGATIVE FOR 0157 NEGATIVE FOR E COLI 0157 NRG NEGATIVE FOR CAMPY NEGATIVE FOR CAMPYLOBACTER NRG NEGATIVE FOR SHIGELLA NEGATIVE FOR SHIGELLA NRG NEGATIVE FOR SALMONELLA NEGATIVE FOR SALMONELLA NRG Bacterial blood culture - 12/12/17 07:30 Bacterial blood culture NG NRG Blood lactic acid measurement (moles/vol ume) - 12/12/17 07:35 Blood lactic acid measurement (moles/volume) 0.58 mmol/L 0.50-2.00 Bacterial blood culture - 12/12/17 07:35 Bacterial blood culture NG NRG Bacterial blood culture - 12/12/17 07:45 Bacterial blood culture NG NRG Complete blood count (CBC) with automate d white blood cell (WBC) differential - 12/13/17 05:10 Blood leukocytes automated count (number/volume) 4.8 10*3/uL 4.3-11.0 Blood erythrocytes automated count (number/volume) 2.67 10*6/uL 4.35-5.85 Venous blood hemoglobin measurement (mass/volume) 7.3 g/dL 13.3-17.7 Blood hematocrit (volume fraction) 23 % 40-54 Automated erythrocyte mean corpuscular volume 84 [ foz_us] 80-99 Automated erythrocyte mean corpuscular h emoglobin (mass per erythrocyte) 27 pg 25-34 Automated erythrocyte mean corpuscular h emoglobin concentration measurement (mass/volume) 32 g/dL 32-36 Automated erythrocyte distribution width ratio 16. 0 % 10.0- 14.5 Automated blood platelet count [...] 10*3 1.0-4.0 Blood monocytes automated count (number/volume) 0. 8 10*3 0.0-1.0 Automated eosinophil count 0.3 10*3/uL 0 .0-0.3 Automated blood basophil count (count/volume) 0.0 10*3/uL 0.0-0.1 Comprehensive metabolic panel - 12/13/17 05:10 Serum or plasma sodium measurement (moles/volume) 141 mmol/L 135-145 Serum or plasma potassium measurement (moles/volume) 3.8 mmol/L 3.6-5.0 Serum or plasma chloride measurement (moles/volume) 111 mmol/L 98-107 Carbon dioxide 22 mmol/L 21-32 Serum or plasma anion gap determination (moles/volume) 8 mmol/L 5-14 Serum or plasma urea nitrogen measurement (mass/volume ) 13 mg/dL 7-18 Serum or plasma creatinine measurement (mass/volume) 0.95 mg/dL 0.60-1.30 Serum or plasma urea nitrogen/creatinine mass ratio 14 NRG Serum or plasma creatinine measurement w ith calculation of estimated glomerular filtration rate > NRG Serum or plasma glucose measurement (mass/volume) 93 mg/dL 70-105 Serum or plasma calcium measurement (mass/volume) 8.2 mg/dL 8.5-10.1 Serum or plasma total bilirubin measurement (mass/volu me) 0.3 mg/dL 0.1-1.0 Serum or plasma alkaline phosphatase greg surement (enzymatic activity/volume) 46 U/L 40-136 Serum or plasma aspartate aminotransfera se measurement (enzymatic activity/volume) 15 U/L 5-34 Serum or plasma alanine aminotransferase measurement (enzymatic activity/volume) 14 U/L 0-55 Serum or plasma protein measurement (mass/volume) 4.9 g/dL 6.4-8.2 Serum or plasma albumin measurement (mass/volume) 2.4 g/dL 3.2-4.5 CALCIUM CORRECTED 9.5 mg/dL 8.5-10.1 Complete urinalysis with reflex to cultu re - 12/13/17 10:40 Urine color determination YELLOW NRG Urine clarity determination CLEAR NR G Urine pH measurement by test strip 5 5-9 Specific gravity of urine by test strip 1.015 1.016-1.022 Urine protein assay by test strip, semi-quantitative NEGATIVE NEGATIVE Urine glucose detection by automated test strip NE GATIVE NEGATIVE Erythrocytes detection in urine sediment by light micr oscopy NEGATIVE NEGATIVE Urine ketones detection by automated test strip NE GATIVE NEGATIVE Urine nitrite detection by test strip NEGATIVE NEGATIVE Urine total bilirubin detection by test strip NEGA TIVE NEGATIVE Urine urobilinogen measurement by automated test strip (mass/volume) NORMAL NORMAL Urine leukocyte esterase detection by dipstick 1+ NEGATIVE Automated urine sediment erythrocyte cou nt by microscopy (number/high power field) NONE NRG Automated urine sediment leukocyte count by microscopy (number/high power field) NONE NRG Bacteria detection in urine sediment by light microsco py TRACE NRG Squamous epithelial cells detection in u rine sediment by light microscopy RARE NRG Crystals detection in urine sediment by light microsco py NONE NRG Casts detection in urine sediment by light microscopy NONE NRG Mucus detection in urine sediment by light microscopy NEGATIVE NRG Complete urinalysis with reflex to culture NO NRG Vancomycin trough - 12/14/17 06:00 Vancomycin trough 13.8 ug/mL 10.0-20.0 Blood CBC with ordered manual differenti al panel - 12/15/17 05:31 Blood leukocytes automated count (number/volume) 6.6 10*3/uL 4.3-11.0 Blood erythrocytes automated count (number/volume) 2.73 10*6/uL 4.35-5.85 Venous blood hemoglobin measurement (mass/volume) 7.5 g/dL 13.3-17.7 Blood hematocrit (volume fraction) 23 % 40-54 Automated erythrocyte mean corpuscular volume 85 [ foz_us] 80-99 Automated erythrocyte mean corpuscular h emoglobin (mass per erythrocyte) 27 pg 25-34 Automated erythrocyte mean corpuscular h emoglobin concentration measurement (mass/volume) 33 g/dL 32-36 Automated erythrocyte distribution width ratio 16. 1 % 10.0- 14.5 Automated blood platelet count [...] 10*3 1.0-4.0 Blood monocytes automated count (number/volume) 0. 8 10*3 0.0-1.0 Automated eosinophil count 0.4 10*3/uL 0 .0-0.3 Automated blood basophil count (count/volume) 0.0 10*3/uL 0.0-0.1 Manual blood segmented neutrophils/100 leukocytes 52 % NRG Blood band neutrophils/100 leukocytes 13 % NRG Manual blood lymphocytes/100 leukocytes 15 % NRG Manual eosinophils/100 leukocytes in nose 9 % NRG Blood anisocytosis detection by light microscopy M ODERATE NRG Blood hypochromia detection by light microscopy MA RKED NRG PT panel in platelet poor plasma by coag ulation assay - 12/15/17 05:31 Prothrombin time (PT) in platelet poor plasma by coagu lation assay 18.0 s 12.2-14.7 INR in platelet poor plasma or blood by coagulation as say 1.5 0.8-1.4 Comprehensive metabolic panel - 12/15/17 05:31 Serum or plasma sodium measurement (moles/volume) 140 mmol/L 135-145 Serum or plasma potassium measurement (moles/volume) 3.9 mmol/L 3.6-5.0 Serum or plasma chloride measurement (moles/volume) 108 mmol/L 98-107 Carbon dioxide 26 mmol/L 21-32 Serum or plasma anion gap determination (moles/volume) 6 mmol/L 5-14 Serum or plasma urea nitrogen measurement (mass/volume ) 9 mg/dL 7-18 Serum or plasma creatinine measurement (mass/volume) 0.93 mg/dL 0.60-1.30 Serum or plasma urea nitrogen/creatinine mass ratio 10 NRG Serum or plasma creatinine measurement w ith calculation of estimated glomerular filtration rate > NRG Serum or plasma glucose measurement (mass/volume) 82 mg/dL 70-105 Serum or plasma calcium measurement (mass/volume) 8.1 mg/dL 8.5-10.1 Serum or plasma total bilirubin measurement (mass/volu me) 0.2 mg/dL 0.1-1.0 Serum or plasma alkaline phosphatase greg surement (enzymatic activity/volume) 60 U/L 40-136 Serum or plasma aspartate aminotransfera se measurement (enzymatic activity/volume) 30 U/L 5-34 Serum or plasma alanine aminotransferase measurement (enzymatic activity/volume) 19 U/L 0-55 Serum or plasma protein measurement (mass/volume) 4.8 g/dL 6.4-8.2 Serum or plasma albumin measurement (mass/volume) 2.3 g/dL 3.2-4.5 CALCIUM CORRECTED 9.5 mg/dL 8.5-10.1 STOOL (C-DIFF) - 01/07/18 10:21 CLOSTRIDIUM DIFFICILE TOXIN/GDH W/REFL TO PCR SEE NOTE NRG PDM - 09 PANEL (PROFILE 1) - 05/27/18 13 :38 Creatinine 72.9 mg/dL > or = 20.0 pH 7.01 4.5 - 9.0 Oxidant NEGATIVE [...] 552 ng/mL <25 medMATCH aOH alprazolam INCONSISTENT NR G Alphahydroxymidazolam NEGATIVE ng/mL < 50 [facility] aOH midazolam CONSISTENT NRG Alphahydroxytriazolam NEGATIVE ng/mL < 50 [facility] aOH triazolam CONSISTENT NRG Aminoclonazepam NEGATIVE ng/mL <25 [facility] Aminoclonazepam CONSISTENT NRG Hydroxyethylflurazepam NEGATIVE ng/mL <50 [facility] OH,Et flurazepam CONSISTENT NR G Lorazepam NEGATIVE ng/mL <50 [facility] Lorazepam CONSISTENT [...] <5.0 NON HDL CHOLESTEROL 109 mg/dL (calc) <13 0 CMP - 09/28/18 08:11 GLUCOSE 87 mg/dL 65-99 UREA NITROGEN (BUN) 27 mg/dL 7-25 CREATININE 1.38 mg/dL 0.70-1.25 eGFR NON-AFR. AFGHAN 53 mL/min/1.73m2 > OR = 60 eGFR 61 mL/min/1.73m2 > OR = 60 BUN/CREATININE RATIO 20 (calc) 6-22 SODIUM 138 mmol/L 135-146 POTASSIUM 4.7 mmol/L 3.5-5.3 CHLORIDE 102 mmol/L 98-110 CARBON DIOXIDE 23 mmol/L 20-32 CALCIUM 9.8 mg/dL 8.6-10.3 PROTEIN, TOTAL 7.4 g/dL 6.1-8.1 ALBUMIN 4.4 g/dL 3.6-5.1 GLOBULIN 3.0 g/dL (calc) 1.9-3.7 ALBUMIN/GLOBULIN RATIO 1.5 (calc) 1.0-2. 5 BILIRUBIN, TOTAL 0.3 mg/dL 0.2-1.2 ALKALINE PHOSPHATASE 90 U/L 40-115 AST 29 U/L 10-35 ALT 18 U/L 9-46 Complete blood count (CBC) with automate d white blood cell (WBC) differential - 10/15/18 01:22 Blood leukocytes automated count (number/volume) 13.4 10*3/uL 4.3-11.0 Blood erythrocytes automated count (number/volume) 4.71 10*6/uL 4.35-5.85 Venous blood hemoglobin measurement (mass/volume) 13.5 g/dL 13.3-17.7 Blood hematocrit (volume fraction) 40 % 40-54 Automated erythrocyte mean corpuscular volume 86 [ foz_us] 80-99 Automated erythrocyte mean corpuscular h emoglobin (mass per erythrocyte) 29 pg 25-34 Automated erythrocyte mean corpuscular h emoglobin concentration measurement (mass/volume) 33 g/dL 32-36 Automated erythrocyte distribution width ratio 15. 2 % 10.0- 14.5 Automated blood platelet count [...] 10*3 1.0-4.0 Blood monocytes automated count (number/volume) 1. 1 10*3 0.0-1.0 Automated eosinophil count 0.0 10*3/uL 0 .0-0.3 Automated blood basophil count (count/volume) 0.1 10*3/uL 0.0-0.1 Comprehensive metabolic panel - 10/15/18 02:50 Serum or plasma sodium measurement (moles/volume) 140 mmol/L 135-145 Serum or plasma potassium measurement (moles/volume) 3.8 mmol/L 3.6-5.0 Serum or plasma chloride measurement (moles/volume) 104 mmol/L 98-107 Carbon dioxide 21 mmol/L 21-32 Serum or plasma anion gap determination (moles/volume) 15 mmol/L 5-14 Serum or plasma urea nitrogen measurement (mass/volume ) 28 mg/dL 7-18 Serum or plasma creatinine measurement (mass/volume) 1.96 mg/dL 0.60-1.30 Serum or plasma urea nitrogen/creatinine mass ratio 14 NRG Serum or plasma creatinine measurement w ith calculation of estimated glomerular filtration rate 34 NRG Serum or plasma glucose measurement (mass/volume) 75 mg/dL 70-105 Serum or plasma calcium measurement (mass/volume) 10.4 mg/dL 8.5-10.1 Serum or plasma total bilirubin measurement (mass/volu me) 0.4 mg/dL 0.1-1.0 Serum or plasma alkaline phosphatase greg surement (enzymatic activity/volume) 77 U/L 40-136 Serum or plasma aspartate aminotransfera se measurement (enzymatic activity/volume) 30 U/L 5-34 Serum or plasma alanine aminotransferase measurement (enzymatic activity/volume) 25 U/L 0-55 Serum or plasma protein measurement (mass/volume) 7.4 g/dL 6.4-8.2 Serum or plasma albumin measurement (mass/volume) 4.4 g/dL 3.2-4.5 CALCIUM CORRECTED 10.1 mg/dL 8.5-10.1 Magnesium - 10/15/18 02:50 Magnesium 2.0 mg/dL 1.8-2.4 Serum or plasma creatine kinase measurem ent (enzymatic activity/volume) - 10/15/18 02:50 Serum or plasma creatine kinase measurem ent (enzymatic activity/volume) 485 U/L 30-200 Serum or plasma ethanol measurement (mas s/volume) - 10/15/18 02:50 Serum or plasma ethanol measurement (mass/volume) < mg/dL <10 Complete urinalysis with reflex to cultu re - 10/15/18 05:15 Urine color determination YELLOW NRG Urine clarity determination SL CLOUDY N RG Urine pH measurement by test strip 5 5-9 Specific gravity of urine by test strip 1.025 1.016-1.022 Urine protein assay by test strip, semi-quantitative 2+ NEGATIVE Urine glucose detection by automated test strip NE GATIVE NEGATIVE Erythrocytes detection in urine sediment by light micr oscopy 1+ NEGATIVE Urine ketones detection by automated test strip 2+ NEGATIVE Urine nitrite detection by test strip NEGATIVE NEGATIVE Urine total bilirubin detection by test strip NEGA TIVE NEGATIVE Urine urobilinogen measurement by automated test strip (mass/volume) NORMAL NORMAL Urine leukocyte esterase detection by dipstick 1+ NEGATIVE Automated urine sediment erythrocyte cou nt by microscopy (number/high power field) [HPF] NRG Automated urine sediment leukocyte count by microscopy (number/high power field) [HPF] NRG Bacteria detection in urine sediment by light microsco py FEW NRG Squamous epithelial cells detection in u rine sediment by light microscopy NONE NRG Crystals detection in urine sediment by light microsco py NONE NRG Casts detection in urine sediment by light microscopy PRESENT NRG Mucus detection in urine sediment by light microscopy MODERATE NRG Complete urinalysis with reflex to culture YES NRG Hyaline casts detection in urine sediment by light andrew roscopy 0-2 NRG Granular casts detection in urine sediment by light mi croscopy 2-5 NRG WBC casts detection in urine sediment by light microsc opy RARE NRG Bacterial urine culture - 10/15/18 05:15 Bacterial urine culture NG NRG Complete blood count (CBC) with automate d white blood cell (WBC) differential - 10/15/18 09:25 Blood leukocytes automated count (number/volume) 12.5 10*3/uL 4.3-11.0 Blood erythrocytes automated count (number/volume) 4.45 10*6/uL 4.35-5.85 Venous blood hemoglobin measurement (mass/volume) 12.8 g/dL 13.3-17.7 Blood hematocrit (volume fraction) 38 % 40-54 Automated erythrocyte mean corpuscular volume 86 [ foz_us] 80-99 Automated erythrocyte mean corpuscular h emoglobin (mass per erythrocyte) 29 pg 25-34 Automated erythrocyte mean corpuscular h emoglobin concentration measurement (mass/volume) 33 g/dL 32-36 Automated erythrocyte distribution width ratio 15. 1 % 10.0- 14.5 Automated blood platelet count [...] 10*3 1.0-4.0 Blood monocytes automated count (number/volume) 0. 9 10*3 0.0-1.0 Automated eosinophil count 0.0 10*3/uL 0 .0-0.3 Automated blood basophil count (count/volume) 0.0 10*3/uL 0.0-0.1 Comprehensive metabolic panel - 10/15/18 09:25 Serum or plasma sodium measurement (moles/volume) 139 mmol/L 135-145 Serum or plasma potassium measurement (moles/volume) 4.3 mmol/L 3.6-5.0 Serum or plasma chloride measurement (moles/volume) 105 mmol/L 98-107 Carbon dioxide 21 mmol/L 21-32 Serum or plasma anion gap determination (moles/volume) 13 mmol/L 5-14 Serum or plasma urea nitrogen measurement (mass/volume ) 29 mg/dL 7-18 Serum or plasma creatinine measurement (mass/volume) 1.86 mg/dL 0.60-1.30 Serum or plasma urea nitrogen/creatinine mass ratio 16 NRG Serum or plasma creatinine measurement w ith calculation of estimated glomerular filtration rate 36 NRG Serum or plasma glucose measurement (mass/volume) 86 mg/dL 70-105 Serum or plasma calcium measurement (mass/volume) 9.6 mg/dL 8.5-10.1 Serum or plasma total bilirubin measurement (mass/volu me) 0.4 mg/dL 0.1-1.0 Serum or plasma alkaline phosphatase greg surement (enzymatic activity/volume) 77 U/L 40-136 Serum or plasma aspartate aminotransfera se measurement (enzymatic activity/volume) 36 U/L 5-34 Serum or plasma alanine aminotransferase measurement (enzymatic activity/volume) 24 U/L 0-55 Serum or plasma protein measurement (mass/volume) 7.3 g/dL 6.4-8.2 Serum or plasma albumin measurement (mass/volume) 4.3 g/dL 3.2-4.5 CALCIUM CORRECTED 9.4 mg/dL 8.5-10.1 THYROID STIMULATING HORMONE - 10/15/18 0 9:25 THYROID STIMULATING HORMONE 1.66 u[iU]/mL 0.35-4.94 Serum or plasma C reactive protein measu rement (mass/volume) - 10/15/18 09:25 Serum or plasma C reactive protein measurement (mass/v olume) 0.59 mg/dL 0.00-0.50 Complete blood count (CBC) with automate d white blood cell (WBC) differential - 10/16/18 06:31 Blood leukocytes automated count (number/volume) 8.7 10*3/uL 4.3-11.0 Blood erythrocytes automated count (number/volume) 4.53 10*6/uL 4.35-5.85 Venous blood hemoglobin measurement (mass/volume) 12.8 g/dL 13.3-17.7 Blood hematocrit (volume fraction) 40 % 40-54 Automated erythrocyte mean corpuscular volume 87 [ foz_us] 80-99 Automated erythrocyte mean corpuscular h emoglobin (mass per erythrocyte) 28 pg 25-34 Automated erythrocyte mean corpuscular h emoglobin concentration measurement (mass/volume) 32 g/dL 32-36 Automated erythrocyte distribution width ratio 15. 2 % 10.0- 14.5 Automated blood platelet count (count/volume) 296 10*3/uL 130-400 Automated blood platelet mean volume measurement 8.7 [foz_us] 7.4-10.4 Automated blood neutrophils/100 leukocytes 74 % 42-75 Automated blood lymphocytes/100 leukocytes 16 % 12-44 Blood monocytes/100 leukocytes 8 % 0-12 Automated blood eosinophils/100 leukocytes 2 % 0-10 Automated blood basophils/100 leukocytes 1 % 0-10 Blood neutrophils automated count (number/volume) 6.4 10*3 1.8-7.8 Blood lymphocytes automated count (number/volume) 1.4 10*3 1.0-4.0 Blood monocytes automated count (number/volume) 0. 7 10*3 0.0-1.0 Automated eosinophil count 0.2 10*3/uL 0 .0-0.3 Automated blood basophil count (count/volume) 0.0 10*3/uL 0.0-0.1 Comprehensive metabolic panel - 10/16/18 06:31 Serum or plasma sodium measurement (moles/volume) 139 mmol/L 135-145 Serum or plasma potassium measurement (moles/volume) 3.7 mmol/L 3.6-5.0 Serum or plasma chloride measurement (moles/volume) 107 mmol/L 98-107 Carbon dioxide 21 mmol/L 21-32 Serum or plasma anion gap determination (moles/volume) 11 mmol/L 5-14 Serum or plasma urea nitrogen measurement (mass/volume ) 18 mg/dL 7-18 Serum or plasma creatinine measurement (mass/volume) 1.03 mg/dL 0.60-1.30 Serum or plasma urea nitrogen/creatinine mass ratio 17 NRG Serum or plasma creatinine measurement w ith calculation of estimated glomerular filtration rate > NRG Serum or plasma glucose measurement (mass/volume) 66 mg/dL 70-105 Serum or plasma calcium measurement (mass/volume) 8.9 mg/dL 8.5-10.1 Serum or plasma total bilirubin measurement (mass/volu me) 0.4 mg/dL 0.1-1.0 Serum or plasma alkaline phosphatase greg surement (enzymatic activity/volume) 74 U/L 40-136 Serum or plasma aspartate aminotransfera se measurement (enzymatic activity/volume) 31 U/L 5-34 Serum or plasma alanine aminotransferase measurement (enzymatic activity/volume) 27 U/L 0-55 Serum or plasma protein measurement (mass/volume) 6.8 g/dL 6.4-8.2 Serum or plasma albumin measurement (mass/volume) 4.0 g/dL 3.2-4.5 CALCIUM CORRECTED 8.9 mg/dL 8.5-10.1 - 10/23/18 13:59 GLUCOSE 94 mg/dL 65-99 UREA NITROGEN (BUN) 23 mg/dL 7-25 CREATININE 1.22 mg/dL 0.70-1.25 eGFR NON-AFR. AFGHAN 61 mL/min/1.73m2 > OR = 60 eGFR 71 mL/min/1.73m2 > OR = 60 BUN/CREATININE RATIO NOT APPLICABLE (calc) 6-22 SODIUM 138 mmol/L 135-146 POTASSIUM 4.4 mmol/L 3.5-5.3 CHLORIDE 100 mmol/L 98-110 CARBON DIOXIDE 31 mmol/L 20-32 CALCIUM 10.1 mg/dL 8.6-10.3 Encounters ACCT No. Visit Date/Time Discharge Status Pt. Type Provider Facility Loc./Unit Complaint [id number] 08/02/2014 08:57:00 08/02/2014 23:59: 59 CLS Outpatient DE LEON DOSTEPHAN [id number] 02/11/2014 14:11:00 02/11/2014 23:59: 59 CLS Outpatient DE LEON DOSTEPHAN [id number] 08/20/2013 09:40:00 08/20/2013 23:59: 59 CLS Outpatient DE LEON DOSTEPHAN [id number] 04/08/2013 08:12:00 04/08/2013 23:59: 59 CLS Outpatient DE LEON DOSTEPHAN [id number] 04/08/2013 08:12:00 04/08/2013 23:59: 59 CLS Outpatient DE LEON DOSTEPHAN [id number] 02/09/2013 16:55:00 02/09/2013 23:59: 59 CLS Outpatient DE LEON DOSTEPHAN [id number] 09/28/2012 09:55:00 09/28/2012 23:59: 59 CLS Outpatient DE LEON DOSTEPHAN [id number] 07/27/2012 13:03:00 07/27/2012 23:59: 59 CLS Outpatient DE LEON DOSTEPHAN [id number] 06/17/2012 10:08:00 06/17/2012 23:59: 59 CLS Outpatient DE LEON DOSTEPHAN [id number] 06/03/2012 13:57:00 06/03/2012 23:59: 59 CLS Outpatient [id number] 05/29/2012 08:42:00 05/29/2012 23:59: 59 CLS Outpatient [id number] 05/25/2012 15:42:00 05/25/2012 23:59: 59 CLS Outpatient [id number] 05/11/2012 08:11:00 05/11/2012 23:59: 59 CLS Outpatient DE LEON DOSTEPHAN [id number] 03/06/2012 09:20:00 03/06/2012 23:59: 59 CLS Outpatient DE LEON DOSTEPHAN [id number] 03/06/2012 09:20:00 03/06/2012 23:59: 59 CLS Outpatient DE LEON DOSTEPHAN [id number] 02/28/2012 08:54:00 02/28/2012 23:59: 59 CLS Outpatient DE LEON DOSTEPHAN [id number] 02/19/2012 09:00:00 02/19/2012 23:59:5 9 CLS Outpatient DE LEON DODIAZA K [id number] 10/15/2018 14:07:00 14:00:00 DIS Inpatient AURELIO LEZAMA, BERRY Byers [facility] 4TH ACUTE RENAL INSUFFICIENCY;DEHYDRATION DELERIUM [id number] 10/15/2018 00:52:00 06:25:00 DIS Emergency DERECK LEZAMA, MEDINA Weir [facility] ER FALL,KNEE PAIN [id number] 05/13/2018 09:09:00 23:59:59 CLS Preadmit MOI LEZAMA, AGUSTÍN Nayak [facility] RAD CERVICAL RADICULOPATHY [id number] 12/08/2017 09:02:00 018 13:40:00 DIS Inpatient AMIRAH SANDERS DO, V [facility] 4TH ACUTE ON CHRONIC RENAL FAILURE,FEVER [id number] 01/20/2013 16:09:00 013 00:01:00 DIS Outpatient SONG RODRIGUES MD [facility] LAB RENAL INSUFFIENCEY [id number] 09/29/2012 13:37:00 013 00:01:00 DIS Outpatient SONG RODRIGUES MD [facility] LAB RENAL [id number] 12/07/2012 14:39:00 013 15:23:00 DIS Emergency MEDINA HARDEN MD [facility] ER THRUSH [id number] 09/29/2012 12:57:00 013 23:59:59 CLS Outpatient SONG RODRIGUES MD [facility] RAD RENAL INSUFFICIENCY [id number] 05/19/2018 23:58:00 Document Registration [id number] 05/19/2018 23:58:00 Document Registration [id number] 05/19/2018 23:58:00 Document Registration [id number] 05/19/2018 23:58:00 Document Registration [id number] 05/19/2018 23:58:00 Document Registration [id number] 04/21/2013 00:00:00 Document Registration [id number] 12/29/2012 00:00:00 Document Registration [id number] 06/10/2012 12:55:00 Document Registration [id number] 11/22/2010 13:19:00 Document Registration [id number] 07/06/2010 14:59:00 Document Registration [id number] 06/04/2010 10:56:00 Document Registration [id number] 10/31/2008 09:53:00 Document Registration [id number] 04/18/2008 14:34:00 Document Registration [id number] 02/05/2008 22:46:00 Document Registration [id number] 02/18/2007 12:51:00 Document Registration [id number] 04/11/2016 10:05:00 Document Registration [id number] 10/23/2018 13:20:00 10/23/2018 23:59:5 9 [facility] MOI LEZAMA, AGUSTÍN [facility] [id number] 10/23/2018 13:20:00 Document Registration [id number] 09/28/2018 15:00:00 Document Registration [id number] 05/27/2018 13:40:00 Document Registration [id number] 01/07/2018 11:00:00 Document Registration [id number] 08/25/2017 09:00:00 Document Registration
--- NOTE | 2019-08-28 09:42 | ED General ---
General Chief Complaint: Altered Mental Status Stated Complaint: MEDICAL EXAM Nursing Triage Note: PT PRESENTS TO ED VIA EMS FROM HOME WITH COMPLAINTS OF CONFUSION AND DIFFICULTY SLEEPING. PT REPORTS HE HAD FRIENDS CALL AND CHECK ON HIM THIS AM AND HE BECAME CONFUSED AND THOUGHT HE WAS BLEEDING FROM AN INJURY DURING THE CALL. WHEN PD ARRIVED ON SCENE AND PT DENIED ANY INJURY AND REPORTS HE DOES NOT KNOW WHY HE THOUGHT HE WAS BLEEDING BUT THAT MAYBE HE WAS DREAMING. PT REPORTS HE WANTED TO BE CHECKED OUT AT THE HOSPITAL. Nursing Sepsis Screen: No Definite Risk Source of Information: Patient, EMS History of Present Illness Date Seen by Provider: August 28, 2019 Time Seen by Provider: 08:47 Initial Comments Here with report of confusion. Patient does have history of schizophrenia and anxiety. He has been seen for similar previously and was found to be dehydrated and in acute renal insufficiency a few times. Patient apparently had reported th at she was injured and was bleeding while he was on the phone with a friend. Welfare check revealed that neither were occurring and patient didn't know why he said that. Denies injury currently. Denies pain. States that he has been taking his meds for schizophrenia as directed. He did take a half a dose of his anxiety medicine and a hydrocodone today. Reports it is been eating and drinking okay. Denies nausea, vomiting or diarrhea. Denies chest pain, breathing problems or fever. Seems to be mentating better now. Timing/Duration: 1 Hour, Changing Over Time Severity: Mild Associated Systoms: No Chest Pain, No Cough, No Fever/Chills, No Nausea/Vomiting, No Shortness of Air, No Weakness Allergies and Home Medications Allergies Coded Allergies: NSAIDS (Non-Steroidal Anti-Inflamma (Verified Allergy, Unknown, 02/06/08) Penicillins (Verified Allergy, Unknown, 02/06/08) aspirin (Verified Allergy, Unknown, 02/06/08) chlorpromazine (Verified Allergy, Unknown, 10/15/18) Uncoded Allergies: NON STEROIDOL ANTI INFLAMTORY (Allergy, Mild, 09/04/08) Home Medications Alprazolam 2 Mg Tablet, 1 MG PO QID PRN for ANXIETY, (Reported) TAKES 1/2 OF A 2 MG TAB Amlodipine Besylate 10 Mg Tablet, 10 MG PO DAILY, (Reported) Aspirin 81 Mg Tablet.dr, 81 MG PO BID, (Reported) Carisoprodol 350 Mg Tablet, 350 MG PO QID, (Reported) Enalapril Maleate 20 Mg Tablet, 20 MG PO BID, (Reported) Ezetimibe 10 Mg Tablet, 10 MG PO DAILY, (Reported) Ferrous Sulfate 325 Mg Tablet, 325 MG PO DAILY, (Reported) Fluticasone Propionate 16 Gm [place].susp, 2 SPRAY NS HS, (Reported) Hydrocodone Bit/Acetaminophen 1 Each Tablet, 1 TAB PO Q6H PRN for PAIN-MODERATE Prescribed by: MARIANA RUTHERFORD on 12/15/17 1141 L. Acidophilus/Bulgaricus 1 Each Tablet, 1 TAB PO DAILY, (Reported) Multivitamin 1 Each Tablet, 1 TAB PO DAILY, (Reported) Perphenazine/Amitriptyline HCl 1 Each Tablet, 6 TAB PO HS, (Reported) Quetiapine Fumarate 200 Mg Tablet, 200 MG PO HS, (Reported) Testosterone Cypionate 200 Mg/1 Ml Vial, 2 ML IM We, (Reported) Thioridazine HCl 100 Mg Tablet, 200 MG PO HS, (Reported) LAST FILLED 07-24-18 (BACKORDERED @ PHARMACY) TAKES 2 (100MG) TABLETS Tizanidine HCl 4 Mg Tablet, 4 MG PO TID PRN for MUSCLE SPASMS, (Reported) Ubidecarenone/Vit E Acetate 1 Each Capsule, 200 MG PO BID, (Reported) Patient Home Medication List Home Medication List Reviewed: Yes Review of Systems Review of Systems Constitutional: see HPI; No chills, No fever EENTM: no symptoms reported Respiratory: no symptoms reported Cardiovascular: no symptoms reported Gastrointestinal: no symptoms reported Genitourinary: no symptoms reported Musculoskeletal: no symptoms reported Skin: no symptoms reported Psychiatric/Neurological: No Symptoms Reported All Other Systems Reviewed Negative Unless Noted: Yes Past Nximvrg-Mwuwfc-Amyugy Hx Past Med/Social Hx: Reviewed Nursing Past Med/Soc Hx Patient Social History Alcohol Use: Denies Use Number of Drinks Today: AA Alcohol Beverage of Choice: Beer Recreational Drug Use: No Type Used: Cigarettes Former Smoker, Quit: Apr 21, 2015 Recent Foreign Travel: No Contact w/Someone Who Travel: No Recent Infectious Disease Expo: No Recent Hopitalizations: No Physical Abuse: No Sexual Abuse: No Mistreated: No Fear: No Immunizations Up To Date Tetanus Booster (TDap): Unknown Seasonal Allergies Seasonal Allergies: No Past Medical History Surgeries: Yes Abdominal, Orthopedic Respiratory: Yes (spontaneous pneumothorax) Currently Using CPAP: No Currently Using BIPAP: No Cardiac: Yes High Cholesterol, Hypertension Neurological: Yes (polyneuropathy, 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) Reproductive Disorders: No Genitourinary: Yes Renal Failure Gastrointestinal: Yes (history of bowel perforation and left hemicolectomy) Musculoskeletal: Yes (chronic musculoskeletal pain from polyneuropathy) Arthritis, Chronic Back Pain Endocrine: Yes HEENT: Yes (chronic sinus problems-SMALL) Cancer: No Psychosocial: Yes Sleep Difficulties, Anxiety, Depression Integumentary: No Blood Disorders: No Family Medical History Reviewed Nursing Family Hx Neoplasm 19 MOTHER (SMALL AMOUNT OF SKIN CANCER) Other Conditions/Hx Physical Exam Vital Signs Vital Signs - First Documented 08/28/19 08:55 Temp 36.7 Pulse 90 Resp 18 B/P (MAP) 145/76 (99) Pulse Ox 98 Capillary Refill : Less Than 3 Seconds Height, Weight, BMI Height: 5'11.00" Weight: 190lbs. 2.0oz. 86.059195uc; 29.00 BMI Method:Stated General Appearance: No Apparent Distress, WD/WN HEENT: PERRL/EOMI, Pharynx Normal Neck: Non Tender, Supple Respiratory: Lungs Clear, Normal Breath Sounds Cardiovascular: Regular Rate, Rhythm, No Murmur Gastrointestinal: Non Tender, Soft Back: Normal Inspection, No Vertebral Tenderness Extremity: Normal Range of Motion, Non Tender Neurologic/Psychiatric: Alert, Oriented x3 Skin: Normal Color, Warm/Dry Progress/Results/Core Measures Suspected Sepsis Recent Fever Within 48 Hours: No Infection Criteria Present: None New/Unexplained Altered Menta: Yes Sepsis Screen: No Definite Risk SIRS Temperature: Pulse: 90 Respiratory Rate: 18 Laboratory Tests 08/28/19 09:16: White Blood Count 14.9H Blood Pressure 145 /76 Mean: 99 Laboratory Tests 08/28/19 09:16: Creatinine 1.70H, Platelet Count 321, Total Bilirubin 0.5 Results/Orders Lab Results Laboratory Tests Test 08/28/19 09:16 08/28/19 11:52 Range/Units White Blood Count 14.9 H 4.3-11.0 10^3/uL Red Blood Count 5.10 4.35-5.85 10^6/uL Hemoglobin 14.8 13.3-17.7 G/DL Hematocrit 45 40-54 % Mean Corpuscular Volume 89 80-99 FL Mean Corpuscular Hemoglobin 29 25-34 PG Mean Corpuscular Hemoglobin Concent 33 32-36 G/DL Red Cell Distribution Width 15.7 H 10.0-14.5 % Platelet Count 321 130-400 10^3/uL Mean Platelet Volume 8.4 7.4-10.4 FL Neutrophils (%) (Auto) 80 H 42-75 % Lymphocytes (%) (Auto) 11 L 12-44 % Monocytes (%) (Auto) 9 0-12 % Eosinophils (%) (Auto) 0 0-10 % Basophils (%) (Auto) 0 0-10 % Neutrophils # (Auto) 11.9 H 1.8-7.8 X 10^3 Lymphocytes # (Auto) 1.6 1.0-4.0 X 10^3 Monocytes # (Auto) 1.3 H 0.0-1.0 X 10^3 Eosinophils # (Auto) 0.1 0.0-0.3 10^3/uL Basophils # (Auto) 0.0 0.0-0.1 10^3/uL Neutrophils % (Manual) 83 % Lymphocytes % (Manual) 6 % Monocytes % (Manual) 11 % Eosinophils % (Manual) 0 % Basophils % (Manual) 0 % Band Neutrophils 0 % Blood Morphology Comment NORMAL Sodium Level 141 135-145 MMOL/L Potassium Level 4.4 3.6-5.0 MMOL/L Chloride Level 100 98-107 MMOL/L Carbon Dioxide Level 27 21-32 MMOL/L Anion Gap 14 5-14 MMOL/L Blood Urea Nitrogen 41 H 7-18 MG/DL Creatinine 1.70 H 0.60-1.30 MG/DL Estimat Glomerular Filtration Rate 40 BUN/Creatinine Ratio 24 Glucose Level 78 70-105 MG/DL Calcium Level 10.0 8.5-10.1 MG/DL Corrected Calcium 8.5-10.1 MG/DL Total Bilirubin 0.5 0.1-1.0 MG/DL Aspartate Amino Transf (AST/SGOT) 44 H 5-34 U/L Alanine Aminotransferase (ALT/SGPT) 48 0-55 U/L Alkaline Phosphatase 99 40-136 U/L C-Reactive Protein High Sensitivity 0.76 H 0.00-0.50 MG/DL Total Protein 8.3 H 6.4-8.2 GM/DL Albumin 4.7 H 3.2-4.5 GM/DL Urine Color YELLOW Urine Clarity CLEAR Urine pH 5.5 5-9 Urine Specific [place] 1.025 H 1.016-1.022 Urine Protein 1+ H NEGATIVE Urine Glucose (UA) NEGATIVE NEGATIVE Urine Ketones NEGATIVE NEGATIVE Urine Nitrite NEGATIVE NEGATIVE Urine Bilirubin NEGATIVE NEGATIVE Urine Urobilinogen 0.2 < = 1.0 MG/DL Urine Leukocyte Esterase NEGATIVE NEGATIVE Urine RBC (Auto) NEGATIVE NEGATIVE Urine RBC NONE /HPF Urine WBC NONE /HPF Urine Squamous Epithelial Cells RARE /HPF Urine Crystals NONE /LPF Urine Bacteria NEGATIVE /HPF Urine Casts NONE /LPF Urine Mucus NEGATIVE /LPF Urine Culture Indicated NO My Orders Orders - RAMON BLOOM MD Cbc With Automated Diff (08/28/19 08:53) Comprehensive Metabolic Panel (08/28/19 08:53) Hs C Reactive Protein (08/28/19 08:53) Ua Culture If Indicated (08/28/19 08:53) Ed Iv/Invasive Line Start (08/28/19 08:53) Lactated Ringers (Lr 1000 Ml Iv Solution (08/28/19 08:53) Manual Differential (08/28/19 09:16) Chest 1 View, Ap/Pa Only (08/28/19 10:43) Lactated Ringers (Lr 1000 Ml Iv Solution (08/28/19 10:43) Medications Given in ED Current Medications Medications Dose Ordered Sig/Nir Route Start Time Stop Time Status Last Admin Dose Admin Lactated Ringer's 1,000 ml @ 0 mls/hr Q0M ONCE IV 08/28/19 08:53 08/28/19 08:54 DC 08/28/19 09:23 0 MLS/HR Lactated Ringer's 1,000 ml @ 0 mls/hr Q0M ONCE IV 08/28/19 10:43 08/28/19 10:44 DC 08/28/19 11:00 0 MLS/HR Vital Signs/I&O 08/28/19 08:55 Temp 36.7 Pulse 90 Resp 18 B/P (MAP) 145/76 (99) Pulse Ox 98 Capillary Refill : Less Than 3 Seconds Blood Pressure Mean: 99 Progress Note : Progress Note Seen and evaluated. IV, labs and UA ordered. LR 1 L bolus. Patient very difficult IV stick. I was ultimately able to obtain IV access to the left antecubital space via ultrasound guidance and 20-gauge Angiocath. Monitor patient. 1120: I have repeated LR 1 L bolus as patient has not given urine sample yet. Chest x-ray added and it was negative. No significant concerns and thus far the patient does appear to be dehydrated. Monitor patient. 1225: Patient doing better overall and he states he would like to go home. I think it would be okay given his current findings. I do believe dehydration was a significant portion of the concern. Urine is still concentrated despite 2 L of LR but he is mentating much better and answering all questions appropriately. He is steady when standing. We will call his friend for a ride. Discharged home with return precautions. Patient verbalize understanding instructions and agreement with plan. Diagnostic Imaging Diagonstic Imaging: Xray Plain Films/CT/US/NM/MRI: chest Comments NAME: CLARY DOWNEY [facility] REC#: [id number] PT STATUS: REG ER : 1950 PHYSICIAN: RAMON BLOOM MD ADMIT DATE: 08/28/19/ER Draft Date of Exam:08/28/19 CHEST 1 VIEW, AP/PA ONLY INDICATION: Altered mental status. FINDINGS: There is cardiomegaly. Mediastinum is unremarkable. Lungs are clear. There is no pleural effusion or pneumothorax. IMPRESSION: No acute cardiopulmonary abnormality. Cardiomegaly. Dictated on workstation # [id number] Dict: 08/28/19 1109 Trans: 08/28/19 1120 [facility] [id number] Interpreted by: NEW LONG MD Electronically signed by: Departure Impression Primary Impression: Dehydration syndrome Disposition: 01 HOME, SELF-CARE Condition: Improved Departure-Patient Inst. Decision time for Depature: 12:27 Referrals: AGUSTÍN PRATER MD (PCP) Primary Care Physician [facility] ([place]) Primary Care Physician Patient Instructions: Dehydration, Adult (DC) Add. Discharge Instructions: All discharge instructions reviewed with patient and/or family. Voiced understanding. Ensure that you drink an adequate amount of fluids. Follow-up with your doctor this week for recheck and further evaluation. Return for worse pain, fever, vomiting, weakness, breathing problems or other concerns as needed. Copy Copies To 1: AGUSTÍN PRATER MD, TIMOTHY D MD August 28, 2019 09:42
[2019-08-28 09:46] LABS: ALANINE AMINOTRANSFERASE 48 U/L (0-55); ALBUMIN 4.7 GM/DL (3.2-4.5); ALKALINE PHOSPHATASE 99 U/L (40-136); BILIRUBIN,TOTAL 0.5 MG/DL (0.1-1.0); BUN/CREATININE RATIO 24; CARBON DIOXIDE 27 MMOL/L (21-32); CHLORIDE 100 MMOL/L (98-107); GFR ESTIMATED 40; GLUCOSE 78 MG/DL (70-105); POTASSIUM 4.4 MMOL/L (3.6-5.0); SODIUM 141 MMOL/L (135-145); TOTAL PROTEIN 8.3 GM/DL (6.4-8.2)
[2019-08-28 10:20] LABS: BAND NEUTROPHILS 0 %; BASOPHILS % (MANUAL) 0 %; EOSINOPHILS % (MANUAL) 0 %; LYMPHOCYTES % (MANUAL) 6 %; MONOCYTES % (MANUAL) 11 %; NEUTROPHILS % (MANUAL) 83 %; RBC MORPH NORMAL
--- NOTE | 2019-08-28 11:21 | Diagnostic Imaging Report ---
INDICATION: Altered mental status. FINDINGS: There is cardiomegaly. Mediastinum is unremarkable. Lungs are clear. There is no pleural effusion or pneumothorax. IMPRESSION: No acute cardiopulmonary abnormality. Cardiomegaly. Dictated by: Dictated on workstation # [id number]
[2019-08-28 11:59] LABS: BILIRUBIN,URINE NEGATIVE (NEGATIVE); CLARITY,URINE CLEAR; COLOR,URINE YELLOW; GLUCOSE, URINE (UA) NEGATIVE (NEGATIVE); KETONES,URINE NEGATIVE (NEGATIVE); LEUKOCYTE ESTERASE ,URINE NEGATIVE (NEGATIVE); NITRITE,URINE NEGATIVE (NEGATIVE); PH,URINE 5.5 (5-9); PROTEIN,URINE 1+ (NEGATIVE)
[2019-08-28 12:13] LABS: BACTERIA,URINE NEGATIVE /HPF; SQUAMOUS EPITHELIAL CELL,UR RARE /HPF
[2019-08-28 12:50] VITALS: BP 132/70
== END 2019-08-28 13:07 | disposition home or self-care (01) ==
LOC: EDUNIT# 08:40 → ER 08:41
DX: E86.0 Dehydration (principal); I10 Essential (primary) hypertension; E78.00 Pure hypercholesterolemia, unspecified; F41.9 Anxiety disorder, unspecified; F32.9 Major depressive disorder, single episode, unspecified; Z88.6 Allergy status to analgesic agent; Z88.0 Allergy status to penicillin; Z88.8 Allergy status to other drugs, medicaments and biological substances; Z79.82 Long term (current) use of aspirin; Z79.51 Long term (current) use of inhaled steroids; Z87.891 Personal history of nicotine dependence; Z80.8 Family history of malignant neoplasm of other organs or systems
CPT/HCPCS: 36415; 71045; 80053; 81000; 85007; 85027; 86141

== ENCOUNTER 2020-01-30 01:10 | Emergency (ER) | payer MEDICARE ==
[~2020-01-30] VITALS: Ht 180 cm; Wt 95.0 kg
[~2020-01-30 01:10] MED LIST changes: +ASPI-1238 PO; -ASPI-983 PO; +ENAL20TA16 PO; -PANT40TA3 PO; +PANT40TA52 PO
--- NOTE | 2020-01-30 01:15 | NUR ---
Pt here by EMS with urinary retention x 3 days; states he also fell this evening while trying to get to the bathroom with his walker. Pt denies injury from the fall. Pt is groggy but states that he took his nighttime meds. Pt is A&Ox4 and moves all extremities well per his baseline. Pt has no other complaints.
[2020-01-30 01:25] LABS: BASOPHILS # (AUTO) 0.1 10^3/uL (0.0-0.1); BASOPHILS % (AUTO) 1 % (0-10); EOSINOPHILS # (AUTO) 0.3 10^3/uL (0.0-0.3); EOSINOPHILS % (AUTO) 3 % (0-10); HEMATOCRIT 40 % (40-54); LYMPHOCYTES # (AUTO) 1.7 10^3/uL (1.0-4.0); LYMPHOCYTES % (AUTO) 18 % (12-44); MEAN CORPUSCULAR HEMOGLOBIN 30 pg (25-34); MEAN CORPUSCULAR HGB CONC 32 g/dL (32-36); MEAN CORPUSCULAR VOLUME 92 fL (80-99); MEAN PLATELET VOLUME 8.8 fL (9.0-12.2); MONOCYTES # (AUTO) 0.7 10^3/uL (0.0-1.0); MONOCYTES % (AUTO) 8 % (0-12); NEUTROPHILS # (AUTO) 6.5 10^3/uL (1.8-7.8); NEUTROPHILS % (AUTO) 70 % (42-75); PLATELET COUNT 272 10^3/uL (130-400); WHITE BLOOD COUNT 9.2 10^3/uL (4.3-11.0)
--- NOTE | 2020-01-30 01:30 | NUR ---
Bladder scan reveals >900ml of urine. ERP notified.
[2020-01-30 01:34] LABS: POTASSIUM 4.2 MMOL/L (3.6-5.0)
[2020-01-30 01:36] LABS: CALCIUM 9.5 MG/DL (8.5-10.1)
[2020-01-30 01:37] LABS: TOTAL PROTEIN 6.9 GM/DL (6.4-8.2)
[2020-01-30 01:38] LABS: BILIRUBIN,TOTAL 0.3 MG/DL (0.1-1.0)
[2020-01-30 01:40] LABS: CREATININE SERUM 1.54 MG/DL (0.60-1.30)
[2020-01-30 01:44] LABS: MAGNESIUM 1.7 MG/DL (1.6-2.4)
[2020-01-30 01:52] LABS: BILIRUBIN,URINE NEGATIVE (NEGATIVE); CLARITY,URINE SL CLOUDY; COLOR,URINE DARK YELLOW; GLUCOSE, URINE (UA) NEGATIVE (NEGATIVE); KETONES,URINE TRACE (NEGATIVE); LEUKOCYTE ESTERASE ,URINE NEGATIVE (NEGATIVE); NITRITE,URINE NEGATIVE (NEGATIVE); PH,URINE 5.5 (5-9); PROTEIN,URINE 2+ (NEGATIVE)
--- NOTE | 2020-01-30 01:52 | NUR ---
Lim placed without incident; 450ml of urine out and then clamped. Will unclamp in 20 minutes.
[2020-01-30] MEDS ORDERED: LACTATED RINGERS 1,000 ML IV ONE (01:58)
[2020-01-30 02:01] LABS: BACTERIA,URINE NEGATIVE /HPF; SQUAMOUS EPITHELIAL CELL,UR RARE /HPF
--- NOTE | 2020-01-30 02:10 | ED General ---
General Chief Complaint: - Urinary Stated Complaint: FALL Nursing Triage Note: Pt here with urinary retention x several days; EMS reports that he did fall while using his walker this evening while walking to his bathroom. Nursing Sepsis Screen: No Definite Risk Source of Information: Patient, EMS, Old Records Exam Limitations: No Limitations History of Present Illness Date Seen by Provider: Jan 30, 2020 Time Seen by Provider: 01:12 Initial Comments This 69-year-old gentleman presents to the emergency room via EMS with complaints of inability to urinate for several days. He also lowered himself to the floor while he was getting up to go to the bathroom this morning. He reports exerting himself overly with his walker yesterday and now feeling weak in the legs as a result. He denies any injury and states this was not truly a fall. Patient denies prior problems with urinary retention. Allergies and Home Medications Allergies Coded Allergies: NSAIDS (Non-Steroidal Anti-Inflamma (Verified Allergy, Unknown, 02/06/08) Penicillins (Verified Allergy, Unknown, 02/06/08) aspirin (Verified Allergy, Unknown, 02/06/08) chlorpromazine (Verified Allergy, Unknown, 10/15/18) Uncoded Allergies: NON STEROIDOL ANTI INFLAMTORY (Allergy, Mild, 09/04/08) Home Medications Alprazolam 2 Mg Tablet, 1 MG PO QID PRN for ANXIETY, (Reported) TAKES 1/2 OF A 2 MG TAB Amlodipine Besylate 10 Mg Tablet, 10 MG PO DAILY, (Reported) Aspirin 81 Mg Tablet.dr, 81 MG PO BID, (Reported) Carisoprodol 350 Mg Tablet, 350 MG PO QID, (Reported) Enalapril Maleate 20 Mg Tablet, 20 MG PO BID, (Reported) Ezetimibe 10 Mg Tablet, 10 MG PO DAILY, (Reported) Ferrous Sulfate 325 Mg Tablet, 325 MG PO DAILY, (Reported) Fluticasone Propionate 16 Gm [place].susp, 2 SPRAY NS HS, (Reported) Hydrocodone Bit/Acetaminophen 1 Each Tablet, 1 TAB PO Q6H PRN for PAIN-MODERATE Prescribed by: MARIANA RUTHERFORD on 12/15/17 1141 L. Acidophilus/Bulgaricus 1 Each Tablet, 1 TAB PO DAILY, (Reported) Multivitamin 1 Each Tablet, 1 TAB PO DAILY, (Reported) Perphenazine/Amitriptyline HCl 1 Each Tablet, 6 TAB PO HS, (Reported) Quetiapine Fumarate 200 Mg Tablet, 200 MG PO HS, (Reported) Tamsulosin HCl 0.4 Mg Cap, 0.4 MG PO DAILY Prescribed by: MEDINA GUERRERO on 01/30/20 0626 Testosterone Cypionate 200 Mg/1 Ml Vial, 2 ML IM We, (Reported) Thioridazine HCl 100 Mg Tablet, 200 MG PO HS, (Reported) LAST FILLED 07-24-18 (BACKORDERED @ PHARMACY) TAKES 2 (100MG) TABLETS Tizanidine HCl 4 Mg Tablet, 4 MG PO TID PRN for MUSCLE SPASMS, (Reported) Ubidecarenone/Vit E Acetate 1 Each Capsule, 200 MG PO BID, (Reported) Patient Home Medication List Home Medication List Reviewed: Yes Review of Systems Review of Systems Constitutional: no symptoms reported EENTM: no symptoms reported Respiratory: no symptoms reported Cardiovascular: no symptoms reported Gastrointestinal: no symptoms reported Genitourinary: see HPI Musculoskeletal: no symptoms reported Skin: no symptoms reported Psychiatric/Neurological: No Symptoms Reported Hematologic/Lymphatic: No Symptoms Reported Immunological/Allergic: no symptoms reported Past Ukchbww-Hborpb-Nfhyiz Hx Past Med/Social Hx: Reviewed Nursing Past Med/Soc Hx Patient Social History Alcohol Use: Denies Use Alcohol Beverage of Choice: Beer Recreational Drug Use: No Smoking Status: Former Smoker Type Used: Cigarettes Former Smoker, Quit: Apr 21, 2015 Recent Foreign Travel: No Contact w/Someone Who Travel: No Recent Infectious Disease Expo: No Recent Hopitalizations: No Immunizations Up To Date Tetanus Booster (TDap): Unknown Seasonal Allergies Seasonal Allergies: No Past Medical History Surgeries: Yes Abdominal, Orthopedic Respiratory: Yes (spontaneous pneumothorax) Currently Using CPAP: No Currently Using BIPAP: No Cardiac: Yes High Cholesterol, Hypertension Neurological: Yes (polyneuropathy, 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) Reproductive Disorders: No Genitourinary: Yes Renal Failure Gastrointestinal: Yes (history of bowel perforation and left hemicolectomy) Musculoskeletal: Yes (chronic musculoskeletal pain from polyneuropathy) Arthritis, Chronic Back Pain Endocrine: Yes HEENT: Yes (chronic sinus problems-SMALL) Cancer: No Psychosocial: Yes Sleep Difficulties, Anxiety, Depression Integumentary: No Blood Disorders: No Family Medical History Neoplasm 19 MOTHER (SMALL AMOUNT OF SKIN CANCER) Other Conditions/Hx Physical Exam Vital Signs Vital Signs - First Documented 01/30/20 01:16 Temp 36.0 Pulse 63 Resp 18 B/P (MAP) 137/85 (102) Pulse Ox 96 O2 Delivery Room Air Capillary Refill : Less Than 3 Seconds Height, Weight, BMI Height: 5'11.00" Weight: 190lbs. 2.0oz. 86.407674lt; 29.00 BMI Method:Stated General Appearance: No Apparent Distress, WD/WN HEENT: PERRL/EOMI, Normal ENT Inspection Neck: Normal Inspection Respiratory: Lungs Clear, Normal Breath Sounds, No Accessory Muscle Use Cardiovascular: Regular Rate, Rhythm, No Edema, No Murmur Gastrointestinal: Non Tender, Soft Extremity: Normal Inspection, No Pedal Edema Neurologic/Psychiatric: Alert, Oriented x3, No Motor/Sensory Deficits, Normal Mood/Affect, time piece repairer II-XII Norm as Tested Skin: Normal Color, Warm/Dry Progress/Results/Core Measures Suspected Sepsis Recent Fever Within 48 Hours: No Infection Criteria Present: None New/Unexplained Altered Menta: No Sepsis Screen: No Definite Risk SIRS Temperature: Pulse: 63 Respiratory Rate: 18 Laboratory Tests 01/30/20 01:15: White Blood Count 9.2 Blood Pressure 137 /85 Mean: 102 Laboratory Tests 01/30/20 01:15: Creatinine 1.54H, Platelet Count 272, Total Bilirubin 0.3 Results/Orders Lab Results Laboratory Tests Test 01/30/20 01:15 01/30/20 01:48 Range/Units White Blood Count 9.2 4.3-11.0 10^3/uL Red Blood Count 4.38 4.30-5.52 10^6/uL Hemoglobin 13.0 L 13.3-17.7 g/dL Hematocrit 40 40-54 % Mean Corpuscular Volume 92 80-99 fL Mean Corpuscular Hemoglobin 30 25-34 pg Mean Corpuscular Hemoglobin Concent 32 32-36 g/dL Red Cell Distribution Width 14.9 H 10.0-14.5 % Platelet Count 272 130-400 10^3/uL Mean Platelet Volume 8.8 L 9.0-12.2 fL Immature Granulocyte % (Auto) 1 % Neutrophils (%) (Auto) 70 42-75 % Lymphocytes (%) (Auto) 18 12-44 % Monocytes (%) (Auto) 8 0-12 % Eosinophils (%) (Auto) 3 0-10 % Basophils (%) (Auto) 1 0-10 % Neutrophils # (Auto) 6.5 1.8-7.8 10^3/uL Lymphocytes # (Auto) 1.7 1.0-4.0 10^3/uL Monocytes # (Auto) 0.7 0.0-1.0 10^3/uL Eosinophils # (Auto) 0.3 0.0-0.3 10^3/uL Basophils # (Auto) 0.1 0.0-0.1 10^3/uL Immature Granulocyte # (Auto) 0.1 0.0-0.1 10^3/uL Sodium Level 139 135-145 MMOL/L Potassium Level 4.2 3.6-5.0 MMOL/L Chloride Level 104 98-107 MMOL/L Carbon Dioxide Level 24 21-32 MMOL/L Anion Gap 11 5-14 MMOL/L Blood Urea Nitrogen 27 H 7-18 MG/DL Creatinine 1.54 H 0.60-1.30 MG/DL Estimat Glomerular Filtration Rate 45 BUN/Creatinine Ratio 18 Glucose Level 87 70-105 MG/DL Calcium Level 9.5 8.5-10.1 MG/DL Corrected Calcium 9.5 8.5-10.1 MG/DL Magnesium Level 1.7 1.6-2.4 MG/DL Total Bilirubin 0.3 0.1-1.0 MG/DL Aspartate Amino Transf (AST/SGOT) 85 H 5-34 U/L Alanine Aminotransferase (ALT/SGPT) 45 0-55 U/L Alkaline Phosphatase 76 40-136 U/L Total Protein 6.9 6.4-8.2 GM/DL Albumin 4.0 3.2-4.5 GM/DL Urine Color DARK YELLOW Urine Clarity SL CLOUDY Urine pH 5.5 5-9 Urine Specific [place] 1.025 H 1.016-1.022 Urine Protein 2+ H NEGATIVE Urine Glucose (UA) NEGATIVE NEGATIVE Urine Ketones TRACE H NEGATIVE Urine Nitrite NEGATIVE NEGATIVE Urine Bilirubin NEGATIVE NEGATIVE Urine Urobilinogen 0.2 < = 1.0 MG/DL Urine Leukocyte Esterase NEGATIVE NEGATIVE Urine RBC (Auto) NEGATIVE NEGATIVE Urine RBC NONE /HPF Urine WBC NONE /HPF Urine Squamous Epithelial Cells RARE /HPF Urine Crystals NONE /LPF Urine Bacteria NEGATIVE /HPF Urine Casts NONE /LPF Urine Mucus NEGATIVE /LPF Urine Culture Indicated NO My Orders Orders - MEDINA HARDEN MD Cbc With Automated Diff (01/30/20 01:20) Comprehensive Metabolic Panel (01/30/20 01:20) Magnesium (01/30/20 01:20) Ua Culture If Indicated (01/30/20:20) Bladder Scan (01/30/20 01:20) Lim Cath (01/30/20 01:33) Lactated Ringers (Lr 1000 Ml Iv Solution (01/30/20 01:58) Medications Given in ED Current Medications Medications Dose Ordered Sig/Nir Route Start Time Stop Time Status Last Admin Dose Admin Lactated Ringer's 1,000 ml @ 0 mls/hr Q0M ONCE IV 01/30/20 01:58 01/30/20 01:59 DC 01/30/20 02:06 1,000 MLS/HR Vital Signs/I&O 01/30/20 01/30/20 01/30/20 01:16 02:17 06:56 Temp 36.0 Pulse 63 50 64 Resp 18 18 B/P (MAP) 137/85 (102) 138/66 147/77 Pulse Ox 96 96 96 O2 Delivery Room Air Room Air Capillary Refill : Less Than 3 Seconds Blood Pressure Mean: 102 Progress Note #1: Time: 06:20 Progress Note Patient was unable to void any urine. Bladder scan showed greater than 1 L of retained urine. Lim catheter was placed. Workup was fairly unremarkable and patient had no obvious injuries. Creatinine was slightly elevated. Patient was hydrated with a liter of IV fluid. He was able to demonstrate ability to walk with a walker. Progress Note #2: Time: 07:28 Progress Note Patient's situation presents a social dilemma. He is unable to manage the Lim leg bag or canister due to his polyneuropathy and poor vision. He denies having anyone in town that can sufficiently help him with these tasks. However, he does not meet admission criteria and admission on place him at risk with the current COVID pandemic. He therefore requests that the catheter be removed and he would like to think his chances on possible rebound of urinary retention. See discharge instructions for further discussion. Departure Impression Primary Impression: Acute urinary retention Additional Impressions: Fall on same level Qualified Codes: W18.30XA - Fall on same level, unspecified, initial encounter Renal insufficiency Disposition: HOME, SELF-CARE Condition: Improved Departure-Patient Inst. Referrals: AGUSTÍN PRATER MD (PCP) Primary Care Physician [facility] (Family) Primary Care Physician Patient Instructions: Lim Catheter, Male Add. Discharge Instructions: Empty your bladder often, preferably every hour while awake. Drink plenty of clear liquids. Start Flomax as prescribed. Follow-up with Dr. Rodrigues as soon as possible. Call Friday for an appointment. Return to the emergency room if you have worsening symptoms or you again have difficulty urinating. Please follow-up with your primary care provider to review medications. Your medications seemed to make you excessively sleepy at bedtime and may be contributing to your urinary retention. All discharge instructions reviewed with patient and/or family. Voiced understanding. Scripts Tamsulosin HCl (Flomax) 0.4 Mg Cap 0.4 MG PO DAILY, #30 CAP Prov: MEDINA HARDEN MD 01/30/20 Copy Copies To 1: SONG RODRIGUES MD Copies To 2: AGUSTÍN PRATER MD, JOSHUA T MD Jan 30, 2020 02:10
--- NOTE | 2020-01-30 05:00 | NUR ---
Pt ambulated about room with the use of walker without incident.
[2020-01-30] MEDS ORDERED: TMSL.4C PO (06:26)
--- NOTE | 2020-01-30 06:55 | NUR ---
D/C instructions provided to patient; pt verbalized an understanding and reasons to return to ER. Pt assisted to car via w/c. [employer]PD will meet them at pt apt to assist patient into his apartment.
[2020-01-30 06:56] VITALS: BP 147/77
== END 2020-01-30 06:52 | disposition home or self-care (01) ==
LOC: EDUNIT# 01:10 → ER 01:12
DX: R33.9 Retention of urine, unspecified (principal); N28.9 Disorder of kidney and ureter, unspecified; I10 Essential (primary) hypertension; F41.9 Anxiety disorder, unspecified; G89.29 Other chronic pain; M54.9 Dorsalgia, unspecified; F32.9 Major depressive disorder, single episode, unspecified; Z80.8 Family history of malignant neoplasm of other organs or systems; Z87.891 Personal history of nicotine dependence; Z88.6 Allergy status to analgesic agent; Z88.0 Allergy status to penicillin; Z88.8 Allergy status to other drugs, medicaments and biological substances; Z79.891 Long term (current) use of opiate analgesic; Z79.82 Long term (current) use of aspirin
CPT/HCPCS: 36415; 51702; 80053; 81000; 83735; 85025

== ENCOUNTER 2020-02-25 12:20 | Emergency (ER) | payer MEDICARE ==
[~2020-02-25] VITALS: Ht 180 cm; Wt 86.1 kg
[~2020-02-25 12:20] MED LIST changes: +AMLO-251 PO; -AMLO10TA7 PO
[2020-02-25 13:02] LABS: BILIRUBIN,URINE NEGATIVE (NEGATIVE); CLARITY,URINE CLEAR; COLOR,URINE ORANGE; GLUCOSE, URINE (UA) NEGATIVE (NEGATIVE); KETONES,URINE TRACE (NEGATIVE); LEUKOCYTE ESTERASE ,URINE TRACE (NEGATIVE); NITRITE,URINE POSITIVE (NEGATIVE); PROTEIN,URINE 3+ (NEGATIVE)
[2020-02-25 13:26] LABS: BASOPHILS % (AUTO) 0 % (0-10); LYMPHOCYTES % (AUTO) 9 % (12-44); MONOCYTES % (AUTO) 7 % (0-12); NEUTROPHILS % (AUTO) 84 % (42-75); PLATELET COUNT 122 10^3/uL (130-400); WHITE BLOOD COUNT 13.8 10^3/uL (4.3-11.0)
[2020-02-25 13:28] LABS: EOSINOPHILS % (AUTO) 0 % (0-10); HEMATOCRIT 46 % (40-54); HEMOGLOBIN 14.5 g/dL (13.3-17.7); LYMPHOCYTES # (AUTO) 1.2 10^3/uL (1.0-4.0); MEAN CORPUSCULAR HEMOGLOBIN 29 pg (25-34); MEAN CORPUSCULAR HGB CONC 32 g/dL (32-36); MEAN CORPUSCULAR VOLUME 93 fL (80-99); MEAN PLATELET VOLUME 10.6 fL (9.0-12.2); MONOCYTES # (AUTO) 0.9 10^3/uL (0.0-1.0); NEUTROPHILS # (AUTO) 11.5 10^3/uL (1.8-7.8)
[2020-02-25 13:32] LABS: BACTERIA,URINE FEW /HPF
[2020-02-25 13:32] LABS: ALBUMIN 4.6 GM/DL (3.2-4.5)
[2020-02-25 13:33] LABS: CHLORIDE 106 MMOL/L (98-107); POTASSIUM 4.5 MMOL/L (3.6-5.0); SODIUM 143 MMOL/L (135-145)
[2020-02-25 13:34] LABS: CALCIUM 9.6 MG/DL (8.5-10.1)
[2020-02-25 13:35] LABS: GLUCOSE 82 MG/DL (70-105); TOTAL PROTEIN 8.3 GM/DL (6.4-8.2)
[2020-02-25 13:36] LABS: CARBON DIOXIDE 23 MMOL/L (21-32)
[2020-02-25 13:37] LABS: BILIRUBIN,TOTAL 0.8 MG/DL (0.1-1.0)
[2020-02-25 13:38] LABS: ALKALINE PHOSPHATASE 94 U/L (40-136)
[2020-02-25 13:39] LABS: CREATININE SERUM 1.28 MG/DL (0.60-1.30); GFR ESTIMATED 56
[2020-02-25 13:40] LABS: BUN/CREATININE RATIO 24
[2020-02-25 13:41] LABS: ALANINE AMINOTRANSFERASE 60 U/L (0-55)
--- NOTE | 2020-02-25 14:53 | ED General ---
General Chief Complaint: Psych/Social Disorder Stated Complaint: ANXIETY Nursing Triage Note: PT PRESENTS TO ED VIA EMS FROM HOME WITH COMPLAINTS OF FEELING ANXIOUS AFTER A PHONE CALL. R SIDED FACIAL DROOP AND DROOLING NOTED. PT REPORTS FACIAL DROOPING IS NORMAL FOR HIM WHEN HE IS ANXIOUS. ACCORDDING TO EMS APARTMENT STAFF WHERE PT LIVES HAS CONCERNS ABOUT PT CONTINUED DECLINE AND CONFUSION. EMS REPORTS THEY RAN A CALL ON PT LAST NIGHT BECAUSE HE WAS FOUND NAKED ON HIS NEIGHBORS STEPS WITH CONFUSION BUT PT REFUSED TRANSPORT LAST NIGHT. Nursing Sepsis Screen: No Definite Risk Source of Information: Patient Exam Limitations: No Limitations History of Present Illness Date Seen by Provider: Feb 25, 2020 Time Seen by Provider: 12:25 Initial Comments This 69 year old gentleman presents to the ER via EMS from home due to an episode of anxiety related to an interaction he had at home. He feels much better now and does not feel he needs to be evaluated. EMS reported they were called out to the apartment complex last night because patient seemed confused and was outside naked. Patient states this happened because the power went out while he was naked and he could not find his clothes in the dark. 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 Patient is alert and oriented. Patient was seen recently in the ER for urinary retention. He declined to have a Lim catheter at home due to difficulty emptying the bag with his disabilities. He has been on Flomax since then. Allergies and Home Medications Allergies Coded Allergies: NSAIDS (Non-Steroidal Anti-Inflamma (Verified Allergy, Unknown, 02/06/08) Penicillins (Verified Allergy, Unknown, 02/06/08) aspirin (Verified Allergy, Unknown, 02/06/08) chlorpromazine (Verified Allergy, Unknown, 10/15/18) Uncoded Allergies: NON STEROIDOL ANTI INFLAMTORY (Allergy, Mild, 09/04/08) Home Medications Alprazolam 2 Mg Tablet, 1 MG PO QID PRN for ANXIETY, (Reported) TAKES 1/2 OF A 2 MG TAB Amlodipine Besylate 10 Mg Tablet, 10 MG PO DAILY, (Reported) Aspirin 81 Mg Tablet.dr, 81 MG PO BID, (Reported) Carisoprodol 350 Mg Tablet, 350 MG PO QID, (Reported) Enalapril Maleate 20 Mg Tablet, 20 MG PO BID, (Reported) Ezetimibe 10 Mg Tablet, 10 MG PO DAILY, (Reported) Ferrous Sulfate 325 Mg Tablet, 325 MG PO DAILY, (Reported) Fluticasone Propionate 16 Gm [place].susp, 2 SPRAY NS HS, (Reported) Hydrocodone Bit/Acetaminophen 1 Each Tablet, 1 TAB PO Q6H PRN for PAIN-MODERATE Prescribed by: MARIANA RUTHERFORD on 12/15/17 1141 L. Acidophilus/Bulgaricus 1 Each Tablet, 1 TAB PO DAILY, (Reported) Multivitamin 1 Each Tablet, 1 TAB PO DAILY, (Reported) Perphenazine/Amitriptyline HCl 1 Each Tablet, 6 TAB PO HS, (Reported) Quetiapine Fumarate 200 Mg Tablet, 200 MG PO HS, (Reported) Sulfamethoxazole/Trimethoprim 1 Each Tablet, 1 EACH PO BID Prescribed by: MEDINA GUERRERO on 02/25/20 1552 Tamsulosin HCl 0.4 Mg Cap, 0.4 MG PO DAILY Prescribed by: MEDINA GUERRERO on 01/30/20 0626 Testosterone Cypionate 200 Mg/1 Ml Vial, 2 ML IM We, (Reported) Thioridazine HCl 100 Mg Tablet, 200 MG PO HS, (Reported) LAST FILLED 07-24-18 (BACKORDERED @ PHARMACY) TAKES 2 (100MG) TABLETS Tizanidine HCl 4 Mg Tablet, 4 MG PO TID PRN for MUSCLE SPASMS, (Reported) Ubidecarenone/Vit E Acetate 1 Each Capsule, 200 MG PO BID, (Reported) Patient Home Medication List Home Medication List Reviewed: Yes Review of Systems Review of Systems Constitutional: no symptoms reported EENTM: no symptoms reported Respiratory: no symptoms reported Cardiovascular: no symptoms reported Gastrointestinal: no symptoms reported Genitourinary: see HPI Musculoskeletal: no symptoms reported Skin: no symptoms reported Psychiatric/Neurological: See HPI Hematologic/Lymphatic: No Symptoms Reported Immunological/Allergic: no symptoms reported Past Hgxxhum-Mmcrru-Vmnooj Hx Past Med/Social Hx: Reviewed Nursing Past Med/Soc Hx Patient Social History Alcohol Use: Occasionally Uses Number of Drinks Today: AA Alcohol Beverage of Choice: Beer Recreational Drug Use: No Smoking Status: Current Everyday Smoker Type Used: Cigarettes Former Smoker, Quit: Apr 21, 2015 Recent Foreign Travel: No Contact w/Someone Who Travel: No Recent Infectious Disease Expo: No Recent Hopitalizations: No Physical Abuse: No Sexual Abuse: No Mistreated: No Fear: No Immunizations Up To Date Tetanus Booster (TDap): Unknown Seasonal Allergies Seasonal Allergies: No Past Medical History Surgeries: Yes (colon resection) Abdominal, Orthopedic, Tonsillectomy Respiratory: Yes (spontaneous pneumothorax) Currently Using CPAP: No Currently Using BIPAP: No Cardiac: Yes High Cholesterol, Hypertension Neurological: Yes (polyneuropathy, 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) Reproductive Disorders: No Genitourinary: Yes (urinary retention) Renal Failure Gastrointestinal: Yes (history of bowel perforation and left hemicolectomy) Musculoskeletal: Yes (chronic musculoskeletal pain from polyneuropathy) Arthritis, Chronic Back Pain Endocrine: Yes HEENT: Yes (chronic sinus problems-SMALL) Cancer: No Psychosocial: Yes Sleep Difficulties, Anxiety, Depression Integumentary: No Blood Disorders: No Family Medical History Neoplasm 19 MOTHER (SMALL AMOUNT OF SKIN CANCER) Other Conditions/Hx Physical Exam Vital Signs Vital Signs - First Documented 02/25/20 12:20 Temp 37.3 Pulse 96 Resp 16 B/P (MAP) 170/90 (116) Pulse Ox 97 Capillary Refill : Less Than 3 Seconds Height, Weight, BMI Height: 5'11.00" Weight: 190lbs. 2.0oz. 86.948577us; 26.00 BMI Method:Stated General Appearance: No Apparent Distress, WD/WN HEENT: PERRL/EOMI, Normal ENT Inspection, Other (mattering of the eyes bilaterally) Neck: Normal Inspection Respiratory: Lungs Clear, Normal Breath Sounds, No Accessory Muscle Use, No Respiratory Distress Cardiovascular: Regular Rate, Rhythm, No Edema, No Murmur Gastrointestinal: Normal Bowel Sounds, Non Tender, Soft Extremity: Normal Inspection, No Pedal Edema Neurologic/Psychiatric: Alert, Oriented x3, No Motor/Sensory Deficits, Normal Mood/Affect, Other (Tremor, greatest in the right upper extremity. Chronic jorge rologic deficits, stated is unchanged.) Skin: Normal Color, Warm/Dry Progress/Results/Core Measures Suspected Sepsis Recent Fever Within 48 Hours: No Infection Criteria Present: None New/Unexplained Altered Menta: No Sepsis Screen: No Definite Risk SIRS Temperature: Pulse: 96 Respiratory Rate: 16 Blood Pressure 170 /90 Mean: 116 Results/Orders Lab Results My Orders Vital Signs/I&O Capillary Refill : Less Than 3 Seconds Blood Pressure Mean: 116 Progress Note : Progress Note Urinalysis suggested urinary tract infection. Bladder scan was obtained post void and revealed about 350 mL of retained urine. I discussed the situation with Dr. Rodrigues since patient is not able to manage a catheter at home. We decided to trial bethanechol over the weekend, 25 mg 4 times daily. Patient demonstrated ability to walk safely and independently. He was alert and oriented. We assisted him in finding a ride home. Departure Impression Primary Impression: Anxiety Additional Impressions: Urinary tract infection Qualified Codes: N39.0 - Urinary tract infection, site not specified Urinary retention Disposition: HOME, SELF-CARE Condition: Improved Departure-Patient Inst. Decision time for Depature: 15:36 Referrals: AGUSTÍN PRATER MD (PCP) Primary Care Physician [facility] (Family) Primary Care Physician Patient Instructions: Urinary Retention (DC), Urinary Tract Infection, Adult (DC) Add. Discharge Instructions: Follow-up with your primary care provider regarding your anxiety. Follow-up with Dr. Rodrigues Friday regarding your urinary tract infection and urinary retention. Start bethanechol. Take 1 tablet before meals and before bedtime 4 times daily. Complete your antibiotic as prescribed. Continue taking all of your other medications as previously prescribed. All discharge instructions reviewed with patient and/or family. Voiced underst anding. Scripts Sulfamethoxazole/Trimethoprim (Bactrim Ds Tablet) 1 Each Tablet 1 EACH PO BID, #14 TAB Prov: MEDINA HARDEN MD 02/25/20 Copy Copies To 1: SONG RODRIGUES MD Copies To 2: AGUSTÍN PRATER MD, JOSHUA T MD Feb 25, 2020 14:53
[2020-02-25] MEDS ORDERED: SULF1TAB35 PO (15:52)
--- NOTE | 2020-02-25 16:19 | NUR ---
PT ASSISTED INTO WC AND WHEELED TO DISCHARGE. PT ASSISTED INTO CAB AND ARRANGEMENTS FOR PPD TO HELP PT FROM CAB TO RESIDENCE HAVE BEEN MADE.
[2020-02-25 16:20] VITALS: BP 158/92
== END 2020-02-25 16:19 | disposition home or self-care (01) ==
LOC: EDUNIT# 12:20 → ER 12:21
DX: F41.9 Anxiety disorder, unspecified (principal); N39.0 Urinary tract infection, site not specified; R33.9 Retention of urine, unspecified; E78.00 Pure hypercholesterolemia, unspecified; I10 Essential (primary) hypertension; G89.29 Other chronic pain; M54.9 Dorsalgia, unspecified; F32.9 Major depressive disorder, single episode, unspecified; F17.210 Nicotine dependence, cigarettes, uncomplicated; Z80.8 Family history of malignant neoplasm of other organs or systems; Z88.0 Allergy status to penicillin; Z88.6 Allergy status to analgesic agent; Z88.8 Allergy status to other drugs, medicaments and biological substances; Z79.82 Long term (current) use of aspirin; Z79.891 Long term (current) use of opiate analgesic
CPT/HCPCS: 36415; 80053; 81000; 85025; 87088; 99283

== ENCOUNTER 2020-02-26 11:55 | Emergency (ER) | payer MEDICARE ==
[~2020-02-26] VITALS: Ht 180.3 cm; Wt 86.2 kg
[~2020-02-26 11:55] MED LIST changes: +SULF1TAB35 PO
[2020-02-26 12:32] LABS: BASOPHILS # (AUTO) 0.1 10^3/uL (0.0-0.1); BASOPHILS % (AUTO) 1 % (0-10); EOSINOPHILS # (AUTO) 0.2 10^3/uL (0.0-0.3); EOSINOPHILS % (AUTO) 1 % (0-10); HEMATOCRIT 40 % (40-54); HEMOGLOBIN 12.9 g/dL (13.3-17.7); LYMPHOCYTES # (AUTO) 1.3 10^3/uL (1.0-4.0); LYMPHOCYTES % (AUTO) 10 % (12-44); MEAN CORPUSCULAR HEMOGLOBIN 30 pg (25-34); MEAN CORPUSCULAR HGB CONC 32 g/dL (32-36); MEAN CORPUSCULAR VOLUME 92 fL (80-99); MEAN PLATELET VOLUME 8.7 fL (9.0-12.2); MONOCYTES # (AUTO) 0.7 10^3/uL (0.0-1.0); MONOCYTES % (AUTO) 5 % (0-12); NEUTROPHILS # (AUTO) 11.1 10^3/uL (1.8-7.8); NEUTROPHILS % (AUTO) 83 % (42-75); PLATELET COUNT 306 10^3/uL (130-400); WHITE BLOOD COUNT 13.4 10^3/uL (4.3-11.0)
[2020-02-26 12:46] LABS: CHLORIDE 103 MMOL/L (98-107); SODIUM 141 MMOL/L (135-145)
[2020-02-26 12:48] LABS: GLUCOSE 133 MG/DL (70-105)
[2020-02-26 12:49] LABS: CARBON DIOXIDE 26 MMOL/L (21-32)
[2020-02-26 12:50] LABS: BILIRUBIN,TOTAL 0.3 MG/DL (0.1-1.0)
[2020-02-26 12:51] LABS: ALKALINE PHOSPHATASE 84 U/L (40-136)
[2020-02-26 12:52] LABS: CREATININE SERUM 1.13 MG/DL (0.60-1.30); GFR ESTIMATED > 60
[2020-02-26 12:53] LABS: BUN/CREATININE RATIO 24
[2020-02-26 12:55] LABS: ALANINE AMINOTRANSFERASE 58 U/L (0-55)
--- NOTE | 2020-02-26 13:22 | ED General ---
General Chief Complaint: General Problems/Pain Stated Complaint: UTI Nursing Triage Note: PT AMBULATE TO ROOM 05 WITH EMS. PT WAS SEEN IN THIS ED YESTERDAY AND DX WITH UTI. PT LEFT AMA FROM THIS ED. FAMILY REPORTS PT HAS DEMENTIA AND FAMILY WANTS PT ADMITTED TO AN ASSISTED LIVING FACILITY. FAMILY STATES PT CANNOT CARE FOR SELF. Nursing Sepsis Screen: No Definite Risk Source of Information: Patient, EMS Exam Limitations: No Limitations History of Present Illness Date Seen by Provider: Feb 26, 2020 Time Seen by Provider: 12:10 Initial Comments This is a healthy appearing 69 yo male who presented to ED via [facility] for UTI and help with placing patient in an assisted living unit. Currently he lives at home alone in apartment complexes. Over the past week EMS has ran multiple calls on this patient for altered behavior. Two days ago EMS was paged out because he was found wandering around naked in the apartment complex. Yesterday he presented to the ER via EMS for a panic attack. He was treated with a UTI but was reported to leave AMA. His son/daughter who live out of town voice concern for his well being d/t his cognitive decline and erratic behaviors. He presented via EMS today to seek help for his erratic behaviors and anxiety. His only physical complaint is chronic generalized pain. He denies headache, cough, shortness of breath, fever, chills, nausea/vomiting/diarrhea, abdominal pain, dysuria or frequency. Allergies and Home Medications Allergies Coded Allergies: NSAIDS (Non-Steroidal Anti-Inflamma (Verified Allergy, Unknown, 02/06/08) Penicillins (Verified Allergy, Unknown, 02/06/08) aspirin (Verified Allergy, Unknown, 02/06/08) chlorpromazine (Verified Allergy, Unknown, 10/15/18) Uncoded Allergies: NON STEROIDOL ANTI INFLAMTORY (Allergy, Mild, 09/04/08) Home Medications Alprazolam 2 Mg Tablet, 1 MG PO QID PRN for ANXIETY, (Reported) TAKES 1/2 OF A 2 MG TAB Amlodipine Besylate 10 Mg Tablet, 10 MG PO DAILY, (Reported) Aspirin 81 Mg Tablet.dr, 81 MG PO BID, (Reported) Carisoprodol 350 Mg Tablet, 350 MG PO QID, (Reported) Enalapril Maleate 20 Mg Tablet, 20 MG PO BID, (Reported) Ezetimibe 10 Mg Tablet, 10 MG PO DAILY, (Reported) Ferrous Sulfate 325 Mg Tablet, 325 MG PO DAILY, (Reported) Fluticasone Propionate 16 Gm [place].susp, 2 SPRAY NS HS, (Reported) Hydrocodone Bit/Acetaminophen 1 Each Tablet, 1 TAB PO Q6H PRN for PAIN-MODERATE Prescribed by: MARIANA RUTHERFORD on 12/15/17 1141 L. Acidophilus/Bulgaricus 1 Each Tablet, 1 TAB PO DAILY, (Reported) Multivitamin 1 Each Tablet, 1 TAB PO DAILY, (Reported) Perphenazine/Amitriptyline HCl 1 Each Tablet, 6 TAB PO HS, (Reported) Quetiapine Fumarate 200 Mg Tablet, 200 MG PO HS, (Reported) Sulfamethoxazole/Trimethoprim 1 Each Tablet, 1 EACH PO BID Prescribed by: MEDINA GUERRERO on 02/25/20 1552 Tamsulosin HCl 0.4 Mg Cap, 0.4 MG PO DAILY Prescribed by: MEDINA GUERRERO on 01/30/20 0626 Testosterone Cypionate 200 Mg/1 Ml Vial, 2 ML IM We, (Reported) Thioridazine HCl 100 Mg Tablet, 200 MG PO HS, (Reported) LAST FILLED 07-24-18 (BACKORDERED @ PHARMACY) TAKES 2 (100MG) TABLETS Tizanidine HCl 4 Mg Tablet, 4 MG PO TID PRN for MUSCLE SPASMS, (Reported) Ubidecarenone/Vit E Acetate 1 Each Capsule, 200 MG PO BID, (Reported) Patient Home Medication List Home Medication List Reviewed: Yes Review of Systems Review of Systems Constitutional: no symptoms reported EENTM: no symptoms reported Respiratory: no symptoms reported Cardiovascular: no symptoms reported Gastrointestinal: no symptoms reported Genitourinary: no symptoms reported Musculoskeletal: back pain, other (generalized body pain ) Skin: no symptoms reported Psychiatric/Neurological: Anxiety Hematologic/Lymphatic: No Symptoms Reported Immunological/Allergic: no symptoms reported Past Kkdzjao-Ivwcln-Sntcly Hx Patient Social History Alcohol Use: Occasionally Uses Number of Drinks Today: AA Alcohol Beverage of Choice: Beer Recreational Drug Use: No Type Used: Electronic/Vapor Former Smoker, Quit: Apr 21, 2015 Recent Foreign Travel: No Contact w/Someone Who Travel: No Recent Infectious Disease Expo: No Recent Hopitalizations: No Physical Abuse: No Sexual Abuse: No Mistreated: No Fear: No Immunizations Up To Date Tetanus Booster (TDap): Unknown Seasonal Allergies Seasonal Allergies: No Past Medical History Surgeries: Yes (colon resection) Abdominal, Orthopedic, Tonsillectomy Respiratory: Yes (spontaneous pneumothorax) Currently Using CPAP: No Currently Using BIPAP: No Cardiac: Yes High Cholesterol, Hypertension Neurological: Yes (polyneuropathy, 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) Reproductive Disorders: No Genitourinary: Yes Renal Failure Gastrointestinal: Yes (history of bowel perforation and left hemicolectomy) Musculoskeletal: Yes (chronic musculoskeletal pain from polyneuropathy) Arthritis, Chronic Back Pain Endocrine: Yes HEENT: Yes (chronic sinus problems-SMALL) Cancer: No Psychosocial: Yes Sleep Difficulties, Anxiety, Depression Integumentary: No Blood Disorders: No Family Medical History Neoplasm 19 MOTHER (SMALL AMOUNT OF SKIN CANCER) Other Conditions/Hx Physical Exam Vital Signs Vital Signs - First Documented 02/26/20 12:01 Temp 36.5 Pulse 90 Resp 17 B/P (MAP) 149/81 (103) O2 Delivery Room Air Capillary Refill : Less Than 3 Seconds Height, Weight, BMI Height: 5'11.00" Weight: 190lbs. 2.0oz. 86.605481yy; 26.00 BMI Method:Stated General Appearance: No Apparent Distress, WD/WN Eyes: Bilateral Eye Normal Inspection, Bilateral Eye PERRL, Bilateral Eye EOMI HEENT: PERRL/EOMI, Normal ENT Inspection, Pharynx Normal Neck: Full Range of Motion, Normal Inspection, Non Tender Respiratory: Lungs Clear, Normal Breath Sounds, No Accessory Muscle Use, No Respiratory Distress Cardiovascular: Regular Rate, Rhythm, No Edema, Normal Peripheral Pulses Gastrointestinal: Normal Bowel Sounds, Non Tender, Soft Back: Normal Inspection, No CVA Tenderness Extremity: Normal Capillary Refill, Normal Inspection, Normal Range of Motion, No Pedal Edema Neurologic/Psychiatric: Alert, Oriented x3, No Motor/Sensory Deficits, Normal Mood/Affect Skin: Normal Color, Warm/Dry Focused Exam Lactate Level 02/26/20 12:25: Lactic Acid Level 1.62 Lactic Acid Level Progress/Results/Core Measures Suspected Sepsis Recent Fever Within 48 Hours: No Infection Criteria Present: None New/Unexplained Altered Menta: No Sepsis Screen: No Definite Risk SIRS Temperature: Pulse: 90 Respiratory Rate: 17 Laboratory Tests 02/26/20 12:25: White Blood Count 13.4H Blood Pressure 149 /81 Mean: 103 02/26/20 12:25: Lactic Acid Level 1.62 Laboratory Tests 02/26/20 12:25: Creatinine 1.13, Platelet Count 306, Total Bilirubin 0.3 Results/Orders Lab Results Laboratory Tests Test 02/26/20 12:25 02/26/20 13:16 Range/Units White Blood Count 13.4 H 4.3-11.0 10^3/uL Red Blood Count 4.35 4.30-5.52 10^6/uL Hemoglobin 12.9 L 13.3-17.7 g/dL Hematocrit 40 40-54 % Mean Corpuscular Volume 92 80-99 fL Mean Corpuscular Hemoglobin 30 25-34 pg Mean Corpuscular Hemoglobin Concent 32 32-36 g/dL Red Cell Distribution Width 14.9 H 10.0-14.5 % Platelet Count 306 130-400 10^3/uL Mean Platelet Volume 8.7 L 9.0-12.2 fL Immature Granulocyte % (Auto) 0 % Neutrophils (%) (Auto) 83 H 42-75 % Lymphocytes (%) (Auto) 10 L 12-44 % Monocytes (%) (Auto) 5 0-12 % Eosinophils (%) (Auto) 1 0-10 % Basophils (%) (Auto) 1 0-10 % Neutrophils # (Auto) 11.1 H 1.8-7.8 10^3/uL Lymphocytes # (Auto) 1.3 1.0-4.0 10^3/uL Monocytes # (Auto) 0.7 0.0-1.0 10^3/uL Eosinophils # (Auto) 0.2 0.0-0.3 10^3/uL Basophils # (Auto) 0.1 0.0-0.1 10^3/uL Immature Granulocyte # (Auto) 0.1 0.0-0.1 10^3/uL Sodium Level 141 135-145 MMOL/L Potassium Level 4.0 3.6-5.0 MMOL/L Chloride Level 103 98-107 MMOL/L Carbon Dioxide Level 26 21-32 MMOL/L Anion Gap 12 5-14 MMOL/L Blood Urea Nitrogen 27 H 7-18 MG/DL Creatinine 1.13 0.60-1.30 MG/DL Estimat Glomerular Filtration Rate > 60 BUN/Creatinine Ratio 24 Glucose Level 133 H 70-105 MG/DL Lactic Acid Level 1.62 0.50-2.00 MMOL/L Calcium Level 9.0 8.5-10.1 MG/DL Corrected Calcium 9.0 8.5-10.1 MG/DL Total Bilirubin 0.3 0.1-1.0 MG/DL Aspartate Amino Transf (AST/SGOT) 39 H 5-34 U/L Alanine Aminotransferase (ALT/SGPT) 58 H 0-55 U/L Alkaline Phosphatase 84 40-136 U/L Total Protein 7.0 6.4-8.2 GM/DL Albumin 4.0 3.2-4.5 GM/DL Coronavirus 2019 (RYANN) Negative Negative My Orders Orders - [place] [employer] Cbc With Automated Diff (02/26/20 12:20) Comprehensive Metabolic Panel (02/26/20 12:20) Lactic Acid Analyzer (02/26/20 12:20) Ed Iv/Invasive Line Start (02/26/20 12:20) Ekg Tracing (02/26/20 13:06) Covid 19 Inhouse Test (02/26/20 13:06) Hydrocodone/Apap 10/325 Tablet (Lortab 1 (02/26/20 16:00) Medications Given in ED Current Medications Medications Dose Ordered Sig/Nir Route Start Time Stop Time Status Last Admin Dose Admin Acetaminophen/ Hydrocodone Bitart 1 ea ONCE ONCE PO 02/26/20 16:00 02/26/20 16:01 DC 02/26/20 15:58 1 EA Vital Signs/I&O 02/26/20 12:01 Temp 36.5 Pulse 90 Resp 17 B/P (MAP) 149/81 (103) O2 Delivery Room Air Capillary Refill : Less Than 3 Seconds Blood Pressure Mean: 103 Progress Note : Time: 12:43 Progress Note 1243:Consulted with [facility] due to his anxiety and changes in cognition. He is agreeable with consult. Called [facility] unit and sumbitted intake at this time. 1310: [facility] called and requested H&P, EKG, Rapid COVID, and Labs/Imaging to be faxed. 1522: Discussed with Rishabh the screener for [facility] at [facility]. States patient would need to have a negative reflex COVID test prior to screening admission to the unit. Plan to have patient get outpatient COVID done tomorrow morning and if negative to be screened by [facility] screener for possible admission. 1535: Discussed plan with son Michael Marrero (DPOA) and he is agreeable with the plan. States he is comfortable having the patient discharged in his care tonight and to follow-up tomorrow morning with [facility]. Discussed this with the patient and he is agreeable with plan as well. ECG Initial ECG Impression Date: Feb 26, 2020 Initial ECG Impression Time: 13:14 Initial ECG Rate: 68 Initial ECG Rhythm: Normal Sinus Initial ECG Intervals: Normal Initial ECG Impression: Normal Departure Impression Primary Impression: Urinary tract infection Disposition: HOME, SELF-CARE Condition: Stable/Unchanged Departure-Patient Inst. Decision time for Depature: 15:37 Referrals: AGUSTÍN PRATER MD (PCP) Primary Care Physician [facility] (Family) Primary Care Physician Patient Instructions: Urinary Tract Infection, Adult (DC), Fibromyalgia (DC), Chronic Pain (DC) Add. Discharge Instructions: Plan: 1. Take antibiotics as directed and complete full course. Increase water intake. 2. Present to [facility] ER and call inside [phone] and notify them that you are therefore, a COVID swab. Stay quarantined until results of swab has returned. 3. Tentative plan will be to have [facility] screen patient for admission after confirmatory negative COVID swab tomorrow. 4. Return to ER for any new or concerning symptoms. All discharge instructions reviewed with patient and/or family. Voiced understanding. Copy Copies To 1: AGUSTÍN PRATER MD Copies To 2: AMIRAH SANDERS [employer]PRESENT[employer]IVE Feb 26, 2020 13:22
--- NOTE | 2020-02-26 14:03 | NUR ---
PT SON (BETH DOWNEY) CALLED AND WAS GIVEN UPDATE. [facility] [phone]
[2020-02-26] MEDS ORDERED: HYDROcodone/APAP 10 MG/325 MG (LORTAB) TAB PO ONE (16:00)
[2020-02-26 16:07] VITALS: BP 179/101
== END 2020-02-26 16:07 | disposition home or self-care (01) ==
LOC: EDUNIT# 11:55 → ER 11:56
DX: N39.0 Urinary tract infection, site not specified (principal); I10 Essential (primary) hypertension; F32.9 Major depressive disorder, single episode, unspecified; F41.9 Anxiety disorder, unspecified; E78.00 Pure hypercholesterolemia, unspecified; G89.29 Other chronic pain; Z87.891 Personal history of nicotine dependence; Z88.0 Allergy status to penicillin; Z88.5 Allergy status to narcotic agent; Z88.6 Allergy status to analgesic agent; Z88.8 Allergy status to other drugs, medicaments and biological substances; Z80.8 Family history of malignant neoplasm of other organs or systems; Z79.82 Long term (current) use of aspirin; Z79.51 Long term (current) use of inhaled steroids; Z20.828 Contact with and (suspected) exposure to other viral communicable diseases
CPT/HCPCS: 80053; 83605; 85025; 93005; 99284; U0002; 36415; 87635